=== PATIENT | male | born 1945 | race Caucasian/White ===

== ENCOUNTER 2021-10-08 12:41 | Emergency (ER) | payer MEDICARE, SELFPAY ==
[2021-10-08] VITALS (11 sets, daily range): BP systolic 64–137; BP diastolic 22–81; PULSE 64–77; RESP 12–20; TEMP 35.9–36.4; O2SAT 93–100; BMI 35.7
--- NOTE | 2021-10-08 13:25 | CRLHL7_ITS ---
For Patients: As a result of the Century Cures Act, medical imaging exams and procedure reports are released immediately into your electronic medical record. You may view this report before your referring provider. If you have questions, please contact your health care provider. INDICATION: Vomiting blood. TECHNIQUE: CT of the abdomen and pelvis with 100 cc Isovue 370 IV contrast. Coronal and sagittal reconstructions. COMPARISON: None. FINDINGS: The liver is enlarged measuring 20 cm in length. No significant nodularity of the liver surface. The spleen is enlarged measuring 14 cm in length. Calcified hepatic and splenic granulomas. Cholecystectomy. No biliary dilation. The pancreas and adrenal glands are negative. Portal veins are patent. Moderate to severe atrophy of both kidneys. No hydronephrosis or ureteral dilation. No obstructing urinary calculi identified. Decompressed urinary bladder. Mildly enlarged prostate gland. The distal esophagus and stomach are normal in appearance. No bowel dilation. Mild to moderate amount of stool throughout the colon. Colonic diverticulosis without evidence of diverticulitis. Negative appendix. Moderate amount of free fluid in the abdomen and pelvis. No intraperitoneal free air. Aortoiliac vascular calcifications. Mildly prominent right common and external iliac chain lymph nodes may be reactive. Tiny left pleural effusion with associated pleural thickening. Calcified pleural plaques. Calcified granuloma left lower lobe. Cardiomegaly. Sternotomy with aortic valve replacement. Coronary artery and mitral annulus calcifications. Calcified left hilar lymph nodes compatible with prior granulomatous disease. Bilateral gynecomastia. Degenerative changes of the spine. Body wall edema. IMPRESSION: 1. No findings to explain hematemesis. 2. Mild hepatosplenomegaly. The liver does not definitely appear cirrhotic. 3. Moderate to severe bilateral renal cortical atrophy. 4. Cardiomegaly with chronic appearing tiny left pleural effusion and body wall edema. 5. Moderate amount of ascites. Please note that all CT scans at this facility use dose modulation, iterative reconstruction, and/or weight-based dosing when appropriate to reduce radiation dose to as low as reasonably achievable. Dictated by Evelyn Johnston MD @ 10/08/2021 3:55:27 PM (Electronically Signed)
[2021-10-08] MEDS: 0.9 % SODIUM CHLORIDE 250 ml 250 ML IV ×2 (13:35→14:18)
[2021-10-08 13:40] LABS: Basophils Absolute Auto 0.02 K/uL (0.00-0.30); Basophils Percent Auto 0.3 % (0.0-3.0); Eosinophils Absolute Auto 0.05 K/uL (0.00-0.50); Eosinophils Percent Auto 0.7 % (0.0-7.0); Hematocrit 24.3 % (37.0-53.0); Immature Granulocytes Abs Auto 0.02 K/uL (0.00-0.30); Lymphocytes Percent Auto 6.8 % (20-44); Mean Corpuscular HGB Conc 31 gm/dL (32-36); Mean Corpuscular Hemoglobin 34 pg (26-34); Mean Corpuscular Volume 110 fL (80-100); Monocytes Percent Auto 12.3 % (0.0-11.0); Neutrophils Percent Auto 79.6 % (42.0-72.0); Platelet Count* 172 K/uL (140-440); RDW Coefficient of Variation % 17.3 % (11.5-15.5); Red Blood Count 2.22 m/uL (4.30-5.90); White Blood Count* 6.81 K/uL (4.50-11.00)
[2021-10-08 13:43] LABS: Hemoglobin* 7.6 gm/dL (13.5-17.5)
[2021-10-08 13:53] LABS: Chloride* 97 mmol/L (96-114)
[2021-10-08 13:54] LABS: Albumin* 3.6 g/dL (3.3-5.0); Potassium* 3.9 mmol/L (3.6-5.1); Sodium* 136 mmol/L (135-149)
[2021-10-08 13:56] LABS: Creatinine* 2.6 mg/dL (0.5-1.5); Est. Creatinine Clearance* 24.55; Estimated Glomerular Filt Rate 25 ml/min
[2021-10-08 13:57] LABS: Alanine Aminotransferase* 16 U/L (4-50); Alkaline Phosphatase* 156 U/L (40-150); Aspartate Amino Transferase* 26 U/L (12-35); Bilirubin Total* 0.6 mg/dL (0.1-1.5); Blood Urea Nitrogen* 36 mg/dL (7-30); Calcium* 8.9 mg/dL (8.4-10.6); Carbon Dioxide* 30 mmol/L (20-32); Glucose* 129 mg/dL (60-115); INR 1.27 (0.91-1.10); Prothrombin Time 16.3 Seconds; Total Protein* 7.1 g/dL (6.0-8.3)
[2021-10-08] MEDS: PANTOPRAZOLE SODIUM 40 MG INJ 80 MG IVP (13:58)
[2021-10-08 14:00] LABS: C Reactive Protein* 2.1 mg/dL (0.5-1.0)
--- NOTE | 2021-10-08 14:15 | ED.GIBLEED ---
HPI - GI Bleed General Time Seen by Provider: 13:00 Date Seen: 10/08/21 Chief complaint: Nausea/Vomiting Stated complaint: Vomiting blood Time Seen by Provider: 10/08/21 13:13 Source: patient and RN notes reviewed Mode of arrival: ambulatory Limitations: no limitations History of Present Illness HPI Narrative: Shaun is a 76-year-old male with a history of renal failure on dialysis, COPD, heart failure with porcine aortic valve and underlying atrial fibrillation who comes to the emergency room with complaints of vomiting blood. This morning patient notes that he had gotten up made himself breakfast but did not eat it. He had the sudden onset of his stomach not feeling quite right and had 1-1/2 cups of a guerrero colored solution,. He denies eating or drinking anything that would look like this. He decided to go to dialysis 1st this morning because he states he did not want to be transferred to another hospital if he came to [place]. He notes that they had to stop his dialysis early because of hypotension. He does agree that his stools which are normally light brown have been dark over the past few days. He is not lightheaded, denies chest pain or shortness of breath. He is not on any anticoagulation but takes a small baby aspirin daily. He has a remote history of GI bleed. He describes a hospitalization at [facility] at which time he had a endoscopy and colonoscopy and they found bleeding coming from his stomach. He states this was many years ago. He states that he does not exactly have pain in his abdomen but states that he is uncomfortable. Does not feel like his abdomen is bigger than usual. He has not had any diarrhea. He is full code. Onset (ago): hour(s) Related Data Allergies Allergy/AdvReac Type Severity Reaction Status Date / Time lisinopril AdvReac Unknown Verified 10/08/21 14:10 Review of Systems Status of ROS: Reports: 10 or more systems reviewed and unremarkable except as noted in History and below Const: Denies: fever, chills or change in weight Eyes: Denies: change in vision ENMT: Denies: throat pain Cardio: Denies: chest pain or shortness of breath with exertion Resp: Denies: shortness of breath GI: Reports: vomiting : Reports: other (Patient does not make urine); Denies: painful urination Musculo: Denies: back pain Neuro: Denies: headache PFSH PFSH Social History Smoking Status: Never smoker How often do you have a drink containing alcohol: never How often do you have six or more drinks on one occasion: Never AUDIT-C Alcohol total score: 0 Non-prescribed substance use: denies use Exam Const: Vital Signs, click to edit/add: Vital Signs - 24 hr 10/08/21 12:50 10/08/21 13:30 10/08/21 14:00 Temperature 97.6 F Pulse Rate Pulse Rate [Pulse Oximeter] 65 68 Respiratory Rate 16 Blood Pressure Blood Pressure [Ri ght Upper Arm] 81/40 L 79/22 L 64/31 L Pulse Oximetry 93 97 10/08/21 14:30 10/08/21 15:11 10/08/21 15:15 Temperature 96.8 F L 96.8 F L Pulse Rate 64 Pulse Rate [Pulse Oximeter] 75 64 Respiratory Rate 12 12 Blood Pressure 73/39 L Blood Pressure [Ri ght Upper Arm] 93/60 101/59 L Pulse Oximetry 96 96 96 10/08/21 15:27 10/08/21 16:00 10/08/21 16:30 Temperature 96.8 F L Pulse Rate 69 Pulse Rate [Pulse Oximeter] 73 71 Respiratory Rate 14 Blood Pressure 121/66 Blood Pressure [Ri ght Upper Arm] 137/81 121/66 Pulse Oximetry 97 10/08/21 17:00 10/08/21 17:30 Temperature 96.8 F L Pulse Rate Pulse Rate [Pulse Oximeter] 64 77 Respiratory Rate 20 20 Blood Pressure Blood Pressure [Ri ght Upper Arm] 117/61 117/75 Pulse Oximetry 97 100 Documenting provider has reviewed patient's vital signs: yes Common normals: no apparent distress and oriented x3 General appearance: cooperative HENMT: Common normals: normocephalic Head and scalp: normocephalic Mouth: oral and palatal mucosa normal Eye: Common normals: PERRL General eye: normal appearance of both eyes Pupil: PERRL Resp: Common normals: normal respiratory effort and clear to auscultation bilaterally Effort & inspection: able to speak in complete sentences Auscultation: clear to auscultation bilaterally Cardio: Common normals: regular rate and regular rhythm Rate: regular rate Rhythm: regular rhythm GI: Common normals: non-tender Inspection: abdominal distension and central obesity Auscultation: hypoactive bowel sounds Palpation: firm : Common normals: no CVA tenderness Bladder/kidney exam: no CVA tenderness Back & Pelvis: Common normals: no CVA tenderness Extremity: Other: Patient noted to have numerous superficial ulcers on his lower legs with some mild surrounding erythema. Neuro: Common normals: oriented x3 Psych: Common normals: mental status grossly normal, thought process normal and speech normal Attitude: calm Activity/motor behavior: appropriate eye contact Speech: normal speech Thought process: normal thought process Thought content: normal thought content Attention/concentration: attention grossly intact Memory/cognition: memory grossly intact Insight: fair Judgement: judgment good Skin: Narrative: Multiple scabs and superficial ulcers with some drainage noted on lower extremities. Some with dried blood. Ranging in size from 2 mm to 1 cm. Course Course Hospital Course: At this time patient is hypotensive with a systolic blood pressure of 78. He did undergo dialysis this morning but I am worried secondary to GI bleed he is given 250 mL of normal saline over 1 hour. After 1/2 hour I am told that his blood pressure has dropped to 60 after rearranging his blankets and his pillow. We give him an additional 250 mL and order 1 unit of blood at this point. Hemoglobin returns at 7.6. Patient is short of breath when he moves but he denies any chest pain. 1 L nasal cannula oxygen placed. He is mentating normally. We have called all of our usual tertiary care centers in attempts to transfer. We also called [place] and [place] and they have no availability. I did explain this to patient. A 2nd IV is currently being placed. Reevaluation(s) Reevaluation #1: At this time patient has blood infusing and blood pressure is now 117 systolic. Patient denies chest pain or shortness of breath. We are infusing blood as slow as possible as vital signs are much improved. Very cautious with her fluids at this point given patient's renal failure. Still unable to find appropriate placement at tertiary care centers. Reevaluation #2: We were able to secure acceptance from [facility]. They do not have a bed but they do have the ability to do a GI consult and thus patient will be housed in the ED for that. Patient's blood pressure much improved. No vomiting in the ED. Vital Signs Vital signs: Initial Vital Signs Temperature 97.6 F 10/08/21 12:50 Temperature Source Tympanic 10/08/21 12:50 Pulse Rate 65 10/08/21 12:50 Pulse Rhythm 10/08/21 12:50 Respiratory Rate 16 10/08/21 12:50 Blood Pressure 81/40 L 10/08/21 12:50 Blood Pressure Mean 53 10/08/21 12:50 Blood Pressure Position Sitting 10/08/21 12:50 Pulse Oximetry 93 10/08/21 12:50 Oxygen Delivery Method 10/08/21 12:50 Vital Signs Temperature 97.6 F 10/08/21 12:50 Pulse Rate 65 10/08/21 12:50 Respiratory Rate 16 10/08/21 12:50 Blood Pressure 81/40 L 10/08/21 12:50 Pulse Oximetry 93 10/08/21 12:50 Temperature 96.8 F L 10/08/21 17:30 Pulse Rate 77 10/08/21 17:30 Respiratory Rate 20 10/08/21 17:30 Blood Pressure 117/75 10/08/21 17:30 Pulse Oximetry 100 10/08/21 17:30 MDM - GI Bleed MDM Narrative Medical decision making narrative: 1. Bleed-patient initial hemoglobin 7.4. Patient believes his previous hemoglobin was 9.2 recently at dialysis. No recurrent vomiting in the ED. Protonix 80 mg IV. Patient has history of GI bleed ?from the stomach? per patient. I do not note history of varicosities. Patient had onset of hematemesis this morning with dark colored stools over the past few days. CT of the abdomen with contrast accomplished. Patient denies the ability to make any urine and is on dialysis. No clear reason for GI bleed noted on the CT. 2. Dialysis-patient does not make urine at this time. Creatinine of 2.6. Dialysis earlier today but had to be discontinued because of hypotension. 3. Hypotension-patient initially arrived with systolic blood pressure of 78. normal saline given cautiously at 250 mL over an hour. Patient really did not improve and thus of further 200 mL were given while awaiting blood. Patient now receiving 1 unit of blood and blood pressure much improved. 4. Disposition-patient will be transferred to the [facility] emergency room in [place] where they are able to do GI consult. He will not have a bed in the hospital as they are full but they will be able to do a GI consult. Patient will be ground ALS transfer. Medical Records Attestation: I reviewed the patient's medical records. Lab Data Attestation: I reviewed the patient's lab results. Labs: Lab Results 10/08/21 10/08/21 10/08/21 Range/Units 13:31 13:31 13:31 WBC 6.81 (4.50-11.00) K/uL RBC 2.22 L (4.30-5.90) m/uL Hgb 7.6 L* (13.5-17.5) gm/dL Hct 24.3 L (37.0-53.0) % MCV 110 H (80-100) fL MCH 34 (26-34) pg MCHC 31 L (32-36) gm/dL RDW Coeff of Sridevi 17.3 H (11.5-15.5) % Plt Count 172 (140-440) K/uL Neut % (Auto) 79.6 H (42.0-72.0) % Lymph % (Auto) 6.8 L (20-44) % [place] % (Auto) 12.3 H (0.0-11.0) % Eos % (Auto) 0.7 (0.0-7.0) % Baso % (Auto) 0.3 (0.0-3.0) % Neut # (Auto) 5.40 (1.7-7.0) K/uL Lymph # (Auto) 0.50 L (0.90-2.90) K/uL [place] # (Auto) 0.80 (0.00-0.90) K/UL Eos # (Auto) 0.05 (0.00-0.50) K/uL Baso # (Auto) 0.02 (0.00-0.30) K/uL Abs Immat Gran (auto) 0.02 (0.00-0.30) K/uL INR 1.27 H (0.91-1.10) Sodium 136 (135-149) mmol/L Potassium 3.9 (3.6-5.1) mmol/L Chloride 97 (96-114) mmol/L Carbon Dioxide 30 (20-32) mmol/L BUN 36 H (7-30) mg/dL Creatinine 2.6 H (0.5-1.5) mg/dL Estimated Creat Clear 24.55 Estimated GFR 25 ml/min Glucose 129 H (60-115) mg/dL Calcium 8.9 (8.4-10.6) mg/dL Total Bilirubin 0.6 (0.1-1.5) mg/dL AST 26 (12-35) U/L ALT 16 (4-50) U/L Alkaline Phosphatase 156 H (40-150) U/L C-Reactive Protein 2.1 H (0.5-1.0) mg/dL Total Protein 7.1 (6.0-8.3) g/dL Albumin 3.6 (3.3-5.0) g/dL Blood Type Antibody Screen Crossmatch (AHG) 10/08/21 Range/Units 13:31 WBC (4.50-11.00) K/uL RBC (4.30-5.90) m/uL Hgb (13.5-17.5) gm/dL Hct (37.0-53.0) % MCV (80-100) fL MCH (26-34) pg MCHC (32-36) gm/dL RDW Coeff of Sridevi (11.5-15.5) % Plt Count (140-440) K/uL Neut % (Auto) (42.0-72.0) % Lymph % (Auto) (20-44) % Independence % (Auto) (0.0-11.0) % Eos % (Auto) (0.0-7.0) % Baso % (Auto) (0.0-3.0) % Neut # (Auto) (1.7-7.0) K/uL Lymph # (Auto) (0.90-2.90) K/uL [place] # (Auto) (0.00-0.90) K/UL Eos # (Auto) (0.00-0.50) K/uL Baso # (Auto) (0.00-0.30) K/uL Abs Immat Gran (auto) (0.00-0.30) K/uL INR (0.91-1.10) Sodium (135-149) mmol/L Potassium (3.6-5.1) mmol/L Chloride (96-114) mmol/L Carbon Dioxide (20-32) mmol/L BUN (7-30) mg/dL Creatinine (0.5-1.5) mg/dL Estimated Creat Clear Estimated GFR ml/min Glucose (60-115) mg/dL Calcium (8.4-10.6) mg/dL Total Bilirubin (0.1-1.5) mg/dL AST (12-35) U/L ALT (4-50) U/L Alkaline Phosphatase (40-150) U/L C-Reactive Protein (0.5-1.0) mg/dL Total Protein (6.0-8.3) g/dL Albumin (3.3-5.0) g/dL Blood Type O Negative Antibody Screen NEGATIVE Crossmatch (AHG) See Detail Imaging Data CT scan - abdomen: Attestation: I have reviewed the pertinent imaging results. My impression: Ascites noted. Radiologist's impression: No findings to explain hematemesis. Cardiomegaly with chronic appearing tiny left pleural effusion. Moderate amount of ascites. ECG Data Interpretation: school lunch monitor has been showing sinus rhythm. Critical Care Time Critical Care Time Critical Care Time: Yes Attestation: The patient required my highest level preparedness to intervene emergently and I personally spent this critical care time directly and personally managing the patient. This critical care time included: Obtaining a history; Examining the patient; Pulse oximetry; Ordering and reviewing of studies; Arranging urgent treatment with development of a management plan; Evaluation of patients response to treatment; Frequent reassessment discussions with other providers. This critical care time was performed to assess and manage the high probability of imminent life-threatening deterioration that could result in multiorgan failure. It was exclusive of separate billable procedures and treating other patients and teaching time. Total Critical Care Time in Minutes: 90 Discharge Plan Discharge Clinical Impression: History of chronic CHF, COPD (chronic obstructive pulmonary disease), Acute GI bleeding, Dialysis patient Patient Disposition: [facility] Discharge Location: [facility] Condition: Improved
[2021-10-08 15:36] LABS: Slide Review Reflex No
--- NOTE | 2021-10-08 16:25 | ED.NURSE ---
EMS called for transport. Will return call with ETA
== END 2021-10-08 17:51 | disposition short-term general hospital (02) ==
PROVIDERS: Emergency Provider Family Medicine; PCP Family Medicine
DX: K92.2 Gastrointestinal hemorrhage, unspecified (principal); I95.9 Hypotension, unspecified
CPT/HCPCS: 36415; 36430; 74177; 80053; 85025; 85610; 86140; 86850; 86900; 86901; 86922; 96374; 99285; 99291; 99292; C9113; J7050; P9016; Q9967

== ENCOUNTER 2021-10-08 17:42 | Outpatient (CLI) | payer MEDICARE, SELFPAY | END 2021-10-08 17:43 | disposition home or self-care (01) | PROVIDERS: PCP Family Medicine; Visit Provider Family Medicine | DX: K92.2 Gastrointestinal hemorrhage, unspecified (principal); R11.0 Nausea; R53.1 Weakness | CPT/HCPCS: A0425; A0426 ==

== ENCOUNTER 2021-10-26 08:25 | Outpatient (CLI) | payer MEDICARE, SELFPAY ==
--- OUTSIDE RECORDS SUMMARY | 2021-10-27 05:40 | XMS_ITS | Encounter Summary ---
:1945 Author Organization [facility] Address [address] [place] [id number] Care Team Providers Name Role Phone Liban Leos Primary Care Provider Ernie Pompa MD Unavailable Reason for Visit Auth/Cert Specialty Diagnoses / Procedures Referred By Contact Refer red To Contact Med Surg Diagnoses UGI bleed UGI bleed Rh 5 Medical Surgical [address] [place], [place] [address] Phone: Fax: Referral ID Status Reason Start Date Expiration Date Visits Requ ested Visits Authorized [id number] 1 1 Encounter Details Date Type Department Care Team Description 10/10/2021 Anesthesia Event [facility] Olvin Mosley belton PeriOp Services MD [place] [address] [place], [place] ANESTHESIA [id number] [address] [facility] [address] [place], [place] [address] Anesthesia Record Procedure Summary Procedure Name Responsible Anesthesia Start Anesthesia Stop Anesthesiologist Time Time ESOPHAGOGASTRODUODENOSCOPY Herman Mosley 10/10/21 0842 09/18 07/09 0918 biopsies (N/A Mouth) MD [place] Events Date Time Event Comment 10/10/2021 0830 SPECIALIZED DEVELOPER Ready for Procedure 0842 An Start 0842 Present 0845 AN REASSESS I attest that I have identified and re-evaluated the patient immediately before the induction of anesthesia and I am satisfied that t he anesthetic plan is suitable for the patient's condition and procedure. The f irst vital signs recorded are pre- inducti on. Yamilka Bear APRN SPECIALIZED DEVELOPER 0845 An Start Data 0857 Present 0912 an stop data 0918 An Stop Electronically s igned by Yamilka Bear APRN CRNA on Sep 9:18 AM 0918 Present Name Total midazolam 1mg/mL 2 mg lidocaine 1% 20 mg propofol (DIPRIVAN) injection 10 mg/mL vial 112.3 mg ondansetron 2mg/mL 4 mg ePHEDrine 50mg/mL 5 mg phenylephrine 10mg/mL 1,000 mcg 0.9% NS 200 mL Agents Name NO HELIOX O2 N2O Air Exp Sevoflurane Exp Isoflurane Exp Desflurane Exp N2O Ins Sevoflurane Ins Isoflurane Ins Desflurane O2 Auxiliary Blood No blood administrations on file. Lines, Drains, and Airways Type Details Placement Removal Hemodialysis Vascular 10/09/21 ([place] 10/09/21 1543 by Access exact date); 1543 Kaylee Trejo S, (unknown exact time); RN Left; Forearm Incision/Surgical Site 10/10/21; 0906; 10/10/21 0906 by Mouth; scope Essence Walton, RN insertion only Peripheral IV 10/08/21; 18 G; 10/08/21 0000 by 10/11/21 2102 b y Anterior, Right Kayla Thompson, [facility] Inpatient, Nurse Peripheral IV 10/08/21; Right; 10/08/21 0000 by 10/11/21 2102 by Wrist Kayla Thompson, [facility] Inpatient, Nurse Peripheral IV 10/09/21; 0851; 20 G; 10/09/21 0851 by 10/11/21 2102 by BD; Anterior, Right; Essence Osuna, [facility] Inpati t, Nurse Lower forearm; Tolerated well documented in this encounter Social History Tobacco Use Types Packs/Day Years Used Date Never Smoker Dip, chew, snus or snuff Smokeless Tobacco: Former User Chew Q uit: 2000 Sex Assigned at Date Recorded Not on file COVID-19 Exposure Response Date Recorded In the last 10 days, have you been in contact with No / Unsu re 10/08/2021 6:28 PM CDT someone who was confirmed or suspected to have Coronavirus/COVID-19? documented as of this encounter OR Notes Anesthesia Postprocedure Evaluation - Herman Mosley MD - 10/10/2021 10:22 AM CDT Patient: Shaun Ocampo Procedure: Procedure(s): ESOPHAGOGASTRODUODENOSCOPY (EGD), biopsies Anesthesia Type: MAC Note: Postop Pain Control: Uneventful Sign Out: Well controlled pain PONV: No Neuro/Psych: Uneventful Sign Out: Acceptable/Baseline neuro status Airway/Respiratory: Uneventful Sign Out: Acceptable/Baseline resp. status CV/Hemodynamics: Uneventful Sign Out: Acceptable CV status Other NRE: NONE DID A NON-ROUTINE EVENT OCCUR? No Last vitals: Vitals Value Taken Time BP 101/57 10/10/21 0936 Temp 97 ??F (36.1 ??C) 10/10/21 0936 Pulse 74 10/10/21 0944 Resp 31 10/10/21 0944 SpO2 100 % 10/10/21 0944 Vitals shown include unvalidated device data. Electronically Signed By: Herman Mosley MD October 10, 2021 10:22 AM Anesthesia Preprocedure Evaluation - Herman Mosley MD - 10/10/2021 8:21 AM CDT Anesthesia Pre-Procedure Evaluation Patient: Shaun Ocampo : 1945 Procedure : Procedure(s): ESOPHAGOGASTRODUODENOSCOPY (EGD) Past Medical History: Diagnosis Date ??? COPD (chronic obstructive pulmonary disease) (H) ??? Diabetes (H) History reviewed. No pertinent surgical history. Allergies Allergen Reactions ??? Blood-Group Specific Substance Other (See Comments) Patient has a Suggestive Warm Auto antibody. Blood products may be delayed. Draw patient 24 hours prior to transfusion. Draw one red top and two purple top tubes for all type and screen orders. ??? Lisinopril Cough Social History Tobacco Use ??? Smoking status: Never Smoker ??? Smokeless tobacco: Former User Types: Chew Quit date: 2000 Substance Use Topics ??? Alcohol use: Not on file Wt Readings from Last 1 Encounters: 10/10/21 112.3 kg (247 lb 8 oz) Anesthesia Evaluation Pt has had prior anesthetic. Type: General. No history of anesthetic complications ROS/MED HX ENT/Pulmonary: (+) COPD, Neurologic: - neg neurologic ROS Cardiovascular: (+) hypertension--CAD ---valvular problems/murmurs type: MR s/p clips. METS/Exercise Tolerance: Hematologic: - neg hematologic ROS Musculoskeletal: - neg musculoskeletal ROS GI/Hepatic: - neg GI/hepatic ROS Renal/Genitourinary: (+) renal disease, type: CRI, Pt requires dialysis, type: Peritoneal dialysis, Endo: (+) type II DM, Obesity, Psychiatric/Substance Use: - neg psychiatric ROS Infectious Disease: - neg infectious disease ROS Malignancy: - neg malignancy ROS Other: - neg other ROS Physical Exam Airway TM distance: > 3 FB Neck ROM: full Mouth opening: > 3 cm Respiratory Devices and Support Dental Cardiovascular cardiovascular exam normal Pulmonary pulmonary exam normal OUTSIDE LABS: CBC: Lab Results Component Value Date WBC 7.2 10/10/2021 WBC 7.2 10/09/2021 HGB 9.7 (L) 10/10/2021 HGB 9.2 (L) 10/10/2021 HCT 31.5 (L) 10/10/2021 HCT 28.4 (L) 10/09/2021 PLT 173 10/10/2021 PLT 157 10/09/2021 BMP: Lab Results Component Value Date NA 132 (L) 10/10/2021 NA 134 10/09/2021 POTASSIUM 5.1 10/10/2021 POTASSIUM 4.8 10/09/2021 CHLORIDE 100 10/10/2021 CHLORIDE 100 10/09/2021 CO2 25 10/10/2021 CO2 28 10/09/2021 BUN 49 (H) 10/10/2021 BUN 42 (H) 10/09/2021 CR 4.60 (H) 10/10/2021 CR 3.52 (H) 10/09/2021 GLC 117 (H) 10/10/2021 GLC 98 10/09/2021 COAGS: Lab Results Component Value Date INR 1.34 (H) 10/08/2021 POC: No results found for: BGM, HCG, HCGS HEPATIC: Lab Results Component Value Date ALBUMIN 2.9 (L) 10/08/2021 PROTTOTAL 6.9 10/08/2021 ALT 16 10/08/2021 AST 15 10/08/2021 ALKPHOS 116 10/08/2021 BILITOTAL 0.8 10/08/2021 OTHER: Lab Results Component Value Date GAMA 8.9 10/10/2021 Anesthesia Plan ASA Status: 4 NPO Status: NPO Appropriate Anesthesia Type: MAC. Consents Postoperative Care Comments: Herman Mosley MD documented in this encounter Miscellaneous Notes Anesthesia Care Transfer Note - Yamilka Bear APRN CRNA - 10/10/2021 9:18 AM CDT Patient: Shaun Ocampo Procedure: Procedure(s): ESOPHAGOGASTRODUODENOSCOPY (EGD), biopsies Diagnosis: Hematemesis [K92.0] Diagnosis Additional Information: No value filed. Anesthesia Type: MAC Note: Oropharynx: oropharynx clear of all foreign objects and spontaneously breathing Level of Consciousness: drowsy Oxygen Supplementation: face mask Independent Airway: airway patency satisfactory and stable Dentition: dentition unchanged Vital Signs Stable: post-procedure vital signs reviewed and stable Report to RN Given: handoff report given Patient transferred to: PACU Handoff Report: Identifed the Patient, Identified the Reponsible Provider, Reviewed the pertinent medical history, Discussed the surgical course, Reviewed Intra-OP anesthesia mangement and issues during anesthesia, Set expectations for post-procedure period and Allowed opportunity for questions and acknowledgement of understanding Vitals: Vitals Value Taken Time BP 88/47 10/10/21 0915 Temp Pulse 76 10/10/21 0917 Resp 18 10/10/21 0917 SpO2 100 % 10/10/21 0917 Vitals shown include unvalidated device data. Electronically Signed By: Yamilka Bear APRN CRNA October 10, 2021 9:18 AM documented in this encounter Plan of Treatment Not on filedocumented as of this encounter Visit Diagnoses Not on filedocumented in this encounter Administered Medications Inactive Administered Medications - up to 3 most recent administrations Medication Order MAR Action Action Date Dose Rate Site ePHEDrine injection Given 10/10/2021 8:52 AM CDT 5 mg Intravenous, PRN, Starting on 10/10/21 at 0852, Anesthesia Intra-op lidocaine 1 % injection Given 10/10/2021 8:47 AM CDT 20 mg Intravenous, PRN, Starting on 10/10/21 at 0847, Anesthesia Intra-op midazolam (VERSED) injection Given 10/10/2021 8:58 AM CDT 1 mg Intravenous, Administer over 2 Minutes, PRN, Starting on Mon10/10/21 at 0843, Anesthesia Intra-op Given 10/10/2021 8:43 AM CDT 1 mg ondansetron (ZOFRAN) injection Given 10/10/2021 8:55 AM CDT 4 mg Intravenous, PRN, Administer over 2-5 Minutes, Starting on Mon10/10/21 at 0855, Anesthesia Intra-op phenylephrine (PAGE-SYNEPHRINE) injection Given 10/10/2021 9:18 AM CDT 200 mcg Intravenous, PRN, Starting on Mon10/10/21 at 0855, Anesthesia Intra-op Given 10/10/2021 9:09 AM CDT 200 mcg Given 10/10/2021 9:06 AM CDT 200 mcg propofol (DIPRIVAN) New Bag 10/10/2021 8:49 AM 100 mcg/kg/min 67.3 8 mL/hr injection 10 mg/mL vial CDT Intravenous, CONTINUOUS PRN, Starting on Mon10/10/21 at 0849, Anesthesia Intra-op sodium chloride 0.9% infusion New Bag 10/10/2021 8:42 AM CDT Intravenous, CONTINUOUS PRN, Anesthesia Intra-op, Starting on Mon10/10/21 at 0842, Until Mon10/10/21 at 0918 documented in this encounter Care Teams Projection Technician Relationship Specialty Start Date End Date Liban Leos PCP - General Family Medicine 10/08/21 [address] [place] [address] Ernie Pompa MD MD Nephrology 10/08/21 [address] [place] [address] documented as of this encounter
--- OUTSIDE RECORDS SUMMARY | 2021-10-27 05:40 | XMS_ITS | Encounter Summary ---
:1945 Author Organization [facility] Address [address] [place] [id number] Care Team Providers Name Role Phone Liban Leos Primary Care Provider Ernie Pompa MD Unavailable Reason for Visit Reason Comments Hypotension Auth/Cert Specialty Diagnoses / Procedures Referred By Contact Refer red To Contact Med Surg Diagnoses UGI bleed UGI bleed 5 Medical Surgical [address] [place], [place] [address] Phone: Fax: Referral ID Status Reason Start Date Expiration Date Visits Requ ested Visits Authorized [id number] 1 1 Encounter Details Date Type Department Care Team Description 10/08/2021 - Hospital Encounter [facility] Florentino Ragsdale MD [facility] [address] [place] [address] UGI bleed 10/11/2021 [place] [address] Medical Fadi Viveros, DO [address] [place] [address] Surgical Dallin Simons MD [facility] [address] [place] [address] [address] Burt MD [facility] [address] [place], [place] [id number] [place] [address] Social History Tobacco Use Types Packs/Day Years [...] have Coronavirus/COVID-19? documented as of this encounter Last Filed Vital Signs Vital Sign Reading Time Taken Comments Blood Pressure 104/75 10/11/2021 5:51 PM CDT Pulse 65 10/11/2021 5:51 PM CDT Temperature 36.7 ??C (98 ??F) 10/11/2021 5:51 PM CDT Respiratory Rate 16 10/11/2021 5:51 PM CDT Oxygen Saturation 98% 10/11/2021 5:51 PM CDT Inhaled Oxygen Concentration - - Weight 113.2 kg (249 lb 9.6 oz) 10/11/2021 5:57 AM CDT Height 175.3 cm (5' 9) 10/09/2021 2:08 PM CDT Body Mass Index 36.86 10/09/2021 2:08 PM CDT documented in this encounter Discharge Summaries Dallin Farah DO - 10/11/2021 10:42 AM CDT Hospitalist Discharge Summary [facility] Jonatan Mejia Date of : 1945 Age: [age] year old Date of Admission: 10/08/2021 Date of Discharge: 10/11/2021 Admitting Physician: Fadi Viveros DO Discharge Physician: Dallin Farah DO Discharging Service: Hospitalist Primary Provider: Liban Leos Discharge Diagnosis: Acute upper GI bleeding Acute blood loss anemia ESRD on HD MWF Paroxysmal Afib CAD s/p stent x2 History of severe MR s/p clips Bioprosthetic AVR COPD Gout Discharge Disposition: Discharged to home Allergies: Allergies Allergen Reactions ??? Blood-Group Specific Substance Other (See Comments) Patient has a Suggestive Warm Auto antibody. Blood products may be delayed. Draw patient 24 hours prior to transfusion. Draw one red top and two purple top tubes for all type and screen orders. ??? Lisinopril Cough Discharge Medications: Current Discharge Medication List START taking these medications Details pantoprazole (PROTONIX) 40 MG EC tablet Take 1 tablet (40 mg) by mouth every morning (before breakfast) Qty: 30 tablet, Refills: 1 Associated Diagnoses: UGI bleed CONTINUE these medications which have NOT CHANGED Details allopurinol (ZYLOPRIM) 100 MG tablet Take 100 mg by mouth daily atorvastatin (LIPITOR) 20 MG tablet Take 20 mg by mouth daily fluticasone (FLONASE) 50 MCG/ACT nasal spray Windsor 1 spray in nostril daily fluticasone-salmeterol (ADVAIR HFA) 115-21 MCG/ACT inhaler Inhale 2 puffs into the lungs 2 times daily lidocaine-prilocaine (EMLA) 2.5-2.5 % external cream APPLY SMALL AMOUNT TO ACCESS SITE (AVF) 1 TO 2 HOURS BEFORE DIALYSIS. COVER WITH OCCLUSIVE DRESSING (SARAN WRAP) metoprolol succinate ER (TOPROL XL) 25 MG 24 hr tablet Take 0.5 tablets by mouth daily multivitamin RENAL (MULTIVITAMIN RENAL) 1 MG capsule Take 1 capsule by mouth sevelamer carbonate (RENVELA) 800 MG tablet Take 1 tablet by mouth 3 times daily (with meals) STOP taking these medications aspirin (ASA) 81 MG EC tablet Comments: Reason for Stopping: Condition on Discharge: Discharge condition: Stable Discharge vitals: Blood pressure (!) 102/34, pulse 61, temperature 97.4 ??F (36.3 ??C), temperature source Oral, resp. rate 20, height 1.753 m (5' 9), weight 113.2 kg (249 lb 9.6 oz), SpO2 96 %. Code status on discharge: Full Code BASIC PHYSICAL EXAMINATION: GENERAL: No apparent distress. CARDIOVASCULAR: Regular rate and rhythm without murmurs. PULMONARY: Clear to auscultation bilaterally. GASTROINTESTINAL: Abdomen soft, non-tender. EXTREMITIES: No edema, pulses intact. NEUROLOGIC: No focal deficits. History of Illness: See detailed admission note for full details. Procedures excluding imaging which is summarized below: Please see details in the electronic medical record. Consultations: GASTROENTEROLOGY IP CONSULT NEPHROLOGY IP CONSULT Significant Results: No results found for this or any previous visit. Transthoracic Echocardiogram Results: No results found for this or any previous visit (from the past 4320 hour(s)). Pending Results: Unresulted Labs Ordered in the Past 30 Days of this Admission Date and Time Order Name Status Description 10/11/2021 7:31 AM Hepatitis B surface antigen In process 10/10/2021 9:02 AM Surgical Pathology Exam In process Discharge Instructions and Follow-Up: Discharge instructions and follow-up: Discharge Procedure Orders Reason for your hospital stay Order Comments: GI bleeding Follow-up and recommended labs and tests Order Comments: Follow up with primary care provider, LIBAN LEOS, within 7 days to evaluate medication change, for hospital follow- up, and regarding new diagnosis. No follow up labs or test areneeded. Need to determine if/when ASA should be resumed. Avoid NSAIDs and alcohol. Follow-up with cardiology to discuss the Watchman device. Activity Order Comments: Your activity upon discharge: activity as tolerated Order Specific Question Answer Comments Is discharge order? Yes Full Code Order Specific Question Answer Comments Code status determined by: Discussion with patient/ legal decision maker Diet Order Comments: Follow this diet upon discharge: Orders Placed This Encounter Renal Diet (dialysis) Order Specific Question Answer Comments Is discharge order? Yes Hospital Course: Jonatan Mejia is a 73 year old. male with a past medical history pertinent for??ESRD on HD MWF,??paroxysmal Afib??on ASA 81m g daily, aortic stenosis??s/p??bioprosthetic??aortic valve replacement, hypertension, diabetes mellitus type II, secondary hyperparathyroidism, esophageal reflux/barretts esop hogus,??prior GIB due to gastric ulcer and??morbid obesity??who??presents to the ED from [place] [facility] due to concerns of hematemesis and melanotic stool. He had just finished HD (took 1.2L) and presented to [place] ED due to concerns of dizziness and hematemesis. ?? Work up at [place] ED showed hgb of 7.5 and soft pressures in the 100's. CT abd pelvis showed normal distal esophagus, stomach and normal liver. No symptoms of obstruction or mass. There were moderate ascites in the dependent abdomen. He received NS bolus (500cc) and 1 unit(s) PRBC and transferred to [facility] ED. Work up in our ED reveals hemoglobin of 8.1 (baseline 9's) and blood pressure in the 70's-100's. He received 1L of NS. GI was made aware, no indication for emergent EGD. But he was placed on Protonix drip, octreotide drip and rocephin (due to concern for possible liver disease causing ascites seen on CT).?? His hemoglobin did decrease and he required 3 units of packed red blood cells for transfusion. Hemoglobin eventually stabilized and he had no concerning stools during his hospitalization. EGD was completed yesterday and showed moderately erythematous mucosa with stigmata of recent bleeding found in the gastric body in the gastric antrum. He was transitioned to oral Protonix which she will remain on indefinitely as well as Carafate which has been started. He should avoid NSAIDs and remain off his aspirin at least in the short-term. He can discuss with his PCP if and when this should be resumed. 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 He does also have a history of coronary disease and prior stenting so antiplatelet medications do have a good indication in his medication regimen. Nephrology was consulted due to his end-stage renal disease on maintenance hemodialysis. He last dialyzed as an outpatient on Monday and had 1.2 L of fluid removed. He was at his baseline weight and labs and volume status remained appropriate during the hospitalization. He will dialyze today (Monday) to remain on schedule and can continue on his outpatient dialysis schedule. ?? The patient was seen, examined, and counseled on this day. The hospitalization and plan of care was reviewed with the patient and daughter in law Brianna wallace. All questions were addressed and the patient agreed to follow-up as noted above. Total time spent in face to face contact with the patient and coordinating discharge was: 35 Minutes Dallin Farah DO MPH [facility] Hospitalist Clark Lentz [facility] [place] [address] 10/11/2021 documented in this encounter Medications at Time of Discharge Medication Sig Dispensed Refills Start Date End Date allopurinol (ZYLOPRIM) Take 100 mg by mouth 0 100 MG tablet daily atorvastatin (LIPITOR) Take 20 mg by mouth 0 11/19 20 MG tablet daily fluticasone (FLONASE) 50 [place] 1 spray in 0 12/15 MCG/ACT nasal spray nostril daily fluticasone-salmeterol Inhale 2 puffs into 0 06/18 (ADVAIR HFA) 115-21 the lungs 2 times MCG/ACT inhaler daily lidocaine-prilocaine APPLY SMALL AMOUNT TO 0 07/19 (EMLA) 2.5-2.5 % ACCESS SITE (AVF) 1 external cream TO 2 HOURS BEFORE DIALYSIS. COVER WITH OCCLUSIVE DRESSING (SARAN WRAP) metoprolol succinate ER Take 0.5 tablets by 0 (TOPROL XL) 25 MG 24 hr mouth daily tablet multivitamin RENAL Take 1 capsule by 0 12/15/2020 (MULTIVITAMIN RENAL) 1 mouth MG capsule pantoprazole (PROTONIX) Take 1 tablet (40 mg) 30 tablet 1 0 10/12/2021 40 MG EC by mouth every tabletIndications: UGI morning (before bleed breakfast) sevelamer carbonate Take 1 tablet by 0 09/10/2021 (RENVELA) 800 MG tablet mouth 3 times daily (with meals) sucralfate (CARAFATE) 1 Take 1 tablet (1 g) 90 tablet 0 11/10/2021 GM tabletIndications: by mouth 3 times UGI bleed daily (with meals) for 30 days documented as of this encounter Progress Notes Aracelis Goldstein RN - 10/11/2021 7:17 PM CDT ??Pertinent assessments: A&Ox4. Up assist of one with walker and gait belt, denies pain, GREY, [id number] on RA. VSS, continues to be anuric. Bruit/thrill present . Major Shift Events:Hemodialysis completed. ??Treatment Plan: Protonix PO , bleeding precaution. ST Lolly Xavier RN - 10/11/2021 6:02 PM CDT Potassium Date Value Ref Range Status 10/11/2021 5.1 3.4 - 5.3 mmol/L Final Hemoglobin Date Value Ref Range Status 10/11/2021 9.4 (L) 13.3 - 17.7 g/dL Final Creatinine Date Value Ref Range Status 10/11/2021 5.77 (H) 0.66 - 1.25 mg/dL Final Urea Nitrogen Date Value Ref Range Status 10/11/2021 60 (H) 7 - 30 mg/dL Final Sodium Date Value Ref Range Status 10/11/2021 134 133 - 144 mmol/L Final INR Date Value Ref Range Status 10/08/2021 1.34 (H) 0.85 - 1.15 Final DIALYSIS PROCEDURE NOTE Hepatitis status of previous patient on machine log was checked and verified ok to use with this patients hepatitis status. Patient dialyzed for 3.5 hrs. on a K2 bath with a net fluid removal of 2L. A BFR of 400 ml/min was obtained via a LAF using 15 gauge needles. The treatment plan was discussed with Dr. Alcaraz during the treatment. Total heparin received during the treatment: 0 units. Needle cannulation sites held x 10 min. Meds given: EPO 4,000units IV Complications: NONE Person educated: pt. Knowledge base substantial. Barriers to learning: none. Educated on diet via verbal mode. patient verbalized understanding. Pt prefers verbal education style. ICEBOAT? Timeout performed pre-treatment I: Patient was identified using 2 identifiers C: Consent Signed Yes E: Equipment preventative maintenance is current and dialysis delivery system OK to use B: Hepatitis B Surface Antigen: neg; Draw Date: 09/22/2021 Hepatitis B Surface Antibody: Immune; Draw Date: 03/24/2021 O: Dialysis orders present and complete prior to treatment A: Vascular access verified and assessed prior to treatment T: Treatment was performed at a clinically appropriate time ?: Patient was allowed to ask questions and address concerns prior to treatment See Adult Hemodialysis flowsheet in EPIC for further details and post assessment. Machine water alarm in place and functioning. Transducer pods intact and checked every 15min. Pt returned via bed. Chlorine/Chloramine water system checked every 4 hours. Outpatient Dialysis at [facility] Post treatment report given to Delilah Goldstein RN regarding 2L of fluid removed, last BP of 104/72, and patient pain rating of 0/10. Please remove patient dressing on AVF and AVG needle sites 24 hours after dialysis. If leaking occurs please apply a Band-Aid. Frederick Alcaraz MD - 10/11/2021 2:02 PM CDT Renal Medicine Progress Note Assessment/Plan: # ESRD # Anemia # CKD-MBD # CAD, mitral clips and bioprosthetic AVR # COPD Plan: 3.5 hrs HD. UF ~ 2-3 liters as tolerate. No heparin. Plan discussed with rigging supervisor and patient at the bedside. Interval History: Afebrile. BP is soft Denies SOB No abdominal pain No vomiting Medications and Allergies: ??? acetaminophen 975 mg Oral Q8H ??? allopurinol 100 mg Oral Daily ??? atorvastatin 20 mg Oral Daily ??? fluticasone-vilanterol 1 puff Inhalation Daily ??? multivitamin RENAL 1 capsule Oral Daily ??? pantoprazole 40 mg Oral QAM AC ??? sevelamer carbonate 800 mg Oral TID w/meals ??? sodium chloride (PF) 3 mL Intracatheter Q8H ??? sucralfate 1 g Oral TID AC Allergies Allergen Reactions ??? Blood-Group Specific Substance Other (See Comments) Patient has a Suggestive Warm Auto antibody. Blood products may be delayed. Draw patient 24 hours prior to transfusion. Draw one red top and two purple top tubes for all type and screen orders. ??? Lisinopril Cough Physical Exam: Vitals were reviewed , Blood pressure (!) 102/34, pulse 61, temperature 97.4 ??F (36.3 ??C), temperature source Oral, resp. rate 20, height 1.753 m (5' 9), weight 113.2 kg (249 lb 9.6 oz), SpO2 96 %. Wt Readings from Last 3 Encounters: 10/11/21 113.2 kg (249 lb 9.6 oz) Intake/Output Summary (Last 24 hours) at 10/11/2021 1402 Last data filed at 10/11/2021 0837 Gross per 24 hour Intake 350 ml Output -- Net 350 ml GENERAL APPEARANCE: pleasant, NAD, alert HEENT: Eyes/ears/nose/neck grossly normal RESP: lungs cta b c good efforts, no crackles, rhonchi or wheezes CV: RRR, nl S1/S2, ABDOMEN: obese, soft, NT EXTREMITIES/SKIN: no rashes/lesions on observed skin; + edema NEURO: Awake and conversing normally Data: CBC RESULTS: Recent Labs Lab 10/11/21 0636 10/10/21 0722 10/10/21 0215 10/09/21 2202 10/09/21 1348 10/09/21 0912 10/08/21 2247 10/08/21 1902 WBC 7.1 7.2 -- -- -- 7.2 -- 7.1 RBC 2.85* 2.89* -- -- -- 2.57* -- 2.37* HGB 9.4* 9.7* 9.2* 10.3* 9.7* 8.5* < > 8.1* HCT 31.2* 31.5* -- -- -- 28.4* -- 26.1* PLT 165 173 -- -- -- 157 -- 161 < > = values in this interval not displayed. Basic Metabolic Panel: Recent Labs Lab 10/11/21 0636 10/10/21 0921 10/10/21 0722 10/09/21 0912 10/08/21 2100 10/08/21 1902 NA 134 -- 132* 134 -- 136 POTASSIUM 5.1 -- 5.1 4.8 -- 3.9 CHLORIDE 100 -- 100 100 -- 100 CO2 23 -- 25 28 -- 30 BUN 60* -- 49* 42* -- 36* CR 5.77* -- 4.60* 3.52* -- 2.80* GLC 116* 126* 117* 98 104* 115* GAMA 8.2* -- 8.9 8.7 -- 8.8 INR Recent Labs Lab 10/08/214 INR 1.34* Attestation: I have reviewed today's relevant vital signs, notes, medications, labs and imaging. Frederick Alcaraz MD [facility] - Nephrology Office phone :[phone] Pager: [phone] Jovita Blackmon RN - 10/11/2021 7:05 AM CDT End of Shift Summary For vital signs and complete assessments, please see documentation flowsheets. Pertinent assessments: Pt A&O, soft BP's, wore 3L NC during the night, currently on RA. Pt denies any pain. Major Shift Events: uneventful Treatment Plan: Hemodialysis today, pain management Aracelis Goldstein RN - 10/10/2021 9:16 PM CDT Pertinent assessments: A&Ox4. Up assist of one with walker and gait belt, denies pain, GREY, O2 maintained on 3L NC, BP soft fluid encouraged otherwise VSS, continues to be anuric. Bruit/thrill present . Major Shift Events:uneventful ??Treatment Plan: Protonix PO , bleeding precaution. Dallin Farah DO - 10/10/2021 12:36 PM CDT [facility] Hospitalist Progress Note Name: Jonatan Mejia Provider: Dallin Farah DO MPH Date of Service: 10/10/2021 Summary of Stay: Jonatan Mejia is a 73 year old. male with a past medical history pertinent for??ESRD on HD MWF, paroxysmal Afib on ASA 81m g daily, aortic stenosis??s/p bioprosthetic aortic valve replacement, hypertension, diabetes mellitus type II, secondary hyperparathyroidism, esophageal reflux/ barretts esophogus, prior GIB due to gastric ulcer and morbid obesity??who presents to the ED from [place] ED due to concerns of hematemesis and melanotic stool. He had just finished HD (took 1.2L) and presented to [place] ED due to concerns of dizziness and hematemesis. ?? Work up at [place] ED showed hgb of 7.5 and soft pressures in the 100's. CT abd pelvis showed normal distal esophagus, stomach and normal liver. No symptoms of obstruction or mass. There were moderate ascites in the dependent abdomen. He received NS bolus (500cc) and 1 unit(s) PRBC and transferred to [facility] ED. Work up in our ED reveals hemoglobin of 8.1 (baseline 9's) and blood pressure in the 70's-100's. He received 1L of NS. GI was made aware, no indication for emergent EGD. But was placed on Protonix drip, octreotide drip and rocephin (due to concern for possible liver disease causing ascites seen on CT). ?? Problem list: #Acute GIB, upper source given hematemesis and reported melanotic stool 2 episodes of rust like emesis yesterday but apparently has had dark black stools intermittently for the last month. Last EGD 03/2017 showed Brannon's esophagus with polyps in the gastric fundus but no obvious bleeding. Currently no further episodes of hematemesis or christiano GI bleed since arrival to the ED. EGD today shows moderately erythematous mucosa with stigmata of recent bleeding was found in the gastric body and in the gastric antrum. Biopsies taken. Plan: -Change Protonix to 40 mg PO daily. -Stop octreotide gtt. -Hemoglobin stable, recheck tomorrow morning. -ADAT. -Hold ASA until PCP follow-up. ?? #ESRD on HD MWF #Intra abd ascites Pt is anuric. Had HD Monday but apparently only had 1.2 L off. Currently at base wt of 108-109 kg. Suspect ascites is 3rd spacing for CLD, liver looks ok and he is not a drinker, no evidence of cirrhosis on CT scan, normal hepatic panel. -Consult Nephrology for HD arrangements. -Stop IVF as he does not make urine and is stable. ?? #pAfib -Sounds like he's in sinus. Rate controlled. -Declined Watchman in the past, only on ASA but given findings on EGD should reconsider Watchman. -Hold ASA. ?? #CAD s/p stent x2 #Hx of severe MR s/p mitral clips #Bioprosthetic AVR -Stable from cardiac standpoint. -No recent angina of GREY. -Aim to keep hemoglobin above 8. -Hold ASA. -Hold Metoprolol given soft BPs. ?? #COPD -No evidence of acute exacerbation. -Resumed advair and will have duonebs PRN. ?? #Gout -Resumed allopurinol. DVT Prophylaxis: Pneumatic Compression Devices Code Status: Full Code Diet: Renal Diet (dialysis) Bustamante Catheter: Not present Disposition: Expected discharge in 1 days to home. Goals prior to discharge include EGD. Incidental Findings: None. Family updated today: Spoke to daughter yesterday. Called her again today but no answer so confidential VM was left. Interval History The patient reports doing well. No chest pain or shortness of breath. No nausea, vomiting, diarrhea,constipation. No fevers. No other specific complaints identified. Spoke with GI about the EGD findings. -Data reviewed today: I personally reviewed all new labs and imaging results over the last 24 hours. Physical Exam Temp: 97.2 ??F (36.2 ??C) Temp src: Axillary BP: 108/45 Pulse: 87 Resp: 20 SpO2: 92 % O2 Device: None (Room air) Oxygen Delivery: 5 LPM Vitals: 10/09/21 1408 10/10/21 0628 Weight: 112.1 kg (247 lb 1.6 oz) 112.3 kg (247 lb 8 oz) Vital Signs with Ranges Temp: [97 ??F (36.1 ??C)-97.8 ??F (36.6 ??C)] 97.2 ??F (36.2 ??C) Pulse: [56-87] 87 Resp: [16-23] 20 BP: (79-115)/(36-87) 108/45 SpO2: [80 %-100 %] 92 % I/O last 3 completed shifts: In: 300 Out: - GENERAL: No apparent distress. Awake, alert, and fully oriented. HEENT: Normocephalic, atraumatic. Extraocular movements intact. CARDIOVASCULAR: Regular rate and rhythm without murmurs or rubs. No S3. PULMONARY: Clear bilaterally. GASTROINTESTINAL: Soft, non-tender, non-distended. Bowel sounds normoactive. EXTREMITIES: No cyanosis or clubbing. No edema. NEUROLOGICAL: CN 2-12 grossly intact, no focal neurological deficits. DERMATOLOGICAL: Chronic ulceration and venous stasis of legs. Medications ??? acetaminophen 975 mg Oral Q8H ??? allopurinol 100 mg Oral Daily ??? atorvastatin 20 mg Oral Daily ??? fluticasone-vilanterol 1 puff Inhalation Daily ??? multivitamin RENAL 1 capsule Oral Daily ??? pantoprazole 40 mg Oral QAM AC ??? sevelamer carbonate 800 mg Oral TID w/meals ??? sodium chloride (PF) 3 mL Intracatheter Q8H ??? sucralfate 1 g Oral TID AC Data Laboratory: Recent Labs Lab 10/10/2172110/10/2121410/09/21220110/09/21 1348 10/09/2191110/08/21224610/08/21 190 WBC 7.2 -- -- -- 7.2 -- 7.1 HGB 9.7* 9.2* 10.3* < > 8.5* < > 8.1* HCT 31.5* -- -- -- 28.4* -- 26.1* MCV 109* -- -- -- 111* -- 110* PLT 173 -- -- -- 157 -- 161 < > = values in this interval not displayed. Recent Labs Lab 10/10/2192010/10/2172110/09/2191110/08/21209910/08/211901 NA -- 132* 134 -- 136 POTASSIUM -- 5.1 4.8 -- 3.9 CHLORIDE -- 100 100 -- 100 CO2 -- 25 28 -- 30 ANIONGAP -- 7 6 -- 6 GLC 126* 117* 98 < > 115* BUN -- 49* 42* -- 36* CR -- 4.60* 3.52* -- 2.80* GFRESTIMATED -- 13* 17* -- 23* GAMA -- 8.9 8.7 -- 8.8 < > = values in this interval not displayed. Recent Labs Lab 10/10/2192010/10/2172110/09/2191110/08/21209910/08/21 190 GLC 126* 117* 98 104* 115* Recent Labs Lab 10/10/2172110/10/2121410/09/212201 HGB 9.7* 9.2* 10.3* No results for input(s): CULT in the last 168 hours. Imaging: No results found for this or any previous visit (from the past 24 hour(s)). Dallin Farah DO MPH [facility] Hospitalist Clark Lentz [facility] [place] [address] 10/10/2021 Terry Wolfe MD - 10/10/2021 9:14 AM CDT Assessment and Plan: ESRD: last HD was on Monday. Wt 112.1 > 112.3. Labs show Na 132, K 5.1, HCO3 25, Cr 4.60. BP low. Orders reviewed and placed for dialysis in am. On renvela. Interval History: Hypotension: GI bleed: S/P IVF boluses and transfusion. BP is low. EGD today by GI. He is on sucralfate, protonix. Still getting octreotide infusion. Hgb 9.7. Afib: aortic stenosis, S/P AVR DM Obesity Review of Systems: Denies pain, SOB , N or V. Some GREY. Medications: ??? [Auto Hold] acetaminophen 975 mg Oral Q8H ??? [Auto Hold] allopurinol 100 mg Oral Daily ??? [Auto Hold] atorvastatin 20 mg Oral Daily ??? [Auto Hold] fluticasone-vilanterol 1 puff Inhalation Daily ??? [Auto Hold] multivitamin RENAL 1 capsule Oral Daily ??? pantoprazole 40 mg Oral QAM AC ??? [Auto Hold] sevelamer carbonate 800 mg Oral TID w/meals ??? [Auto Hold] sodium chloride (PF) 3 mL Intracatheter Q8H ??? sucralfate 1 g Oral BID AC ??? octreotide (sandoSTATIN) infusion ADULT 50 mcg/hr (10/09/21 1126) Current active medications and POLISHER DIAL medications reviewed, see medication list for details. Physical Exam: Vitals were reviewed Patient Vitals for the past 24 hrs: BP Temp Temp src Pulse Resp SpO2 Height Weight 10/10/21 0628 -- -- -- -- -- -- -- 112.3 kg (247 lb 8 oz) 10/10/21 0100 105/51 -- -- 70 -- -- -- -- 10/10/21 0011 (!) 84/38 -- -- 67 -- -- -- -- 10/09/21 2335 92/44 97.7 ??F (36.5 ??C) Oral 72 16 93 % -- -- 10/09/21 1408 109/49 97.7 ??F (36.5 ??C) Oral 69 20 95 % 1.753 m (5' 9) 112.1 kg (247 lb 1.6 oz) 10/09/21 1356 -- 97.7 ??F (36.5 ??C) Oral 69 18 95 % -- -- 10/09/21 1145 110/73 97.7 ??F (36.5 ??C) Axillary 70 20 98 % -- -- 10/09/21 1124 107/61 97.8 ??F (36.6 ??C) Axillary 81 20 -- -- -- 10/09/21 1115 -- -- -- -- -- 95 % -- -- 10/09/21 1100 107/69 -- -- 64 -- 97 % -- -- 10/09/21 1045 108/55 -- -- -- -- 98 % -- -- 10/09/21 0932 101/76 97.6 ??F (36.4 ??C) Axillary 68 20 -- -- -- 10/09/21 0921 (!) 84/61 97.6 ??F (36.4 ??C) -- 61 20 -- -- -- Temp: [97.6 ??F (36.4 ??C)-97.8 ??F (36.6 ??C)] 97.7 ??F (36.5 ??C) Pulse: [61-81] 70 Resp: [16-20] 16 BP: (84-110)/(38-76) 105/51 SpO2: [93 %-98 %] 93 % Temperatures: Current - Temp: 97.7 ??F (36.5 ??C); Max - Temp Av.7 ??F (36.5 ??C) Min: 97.6 ??F(36.4 ??C) Max: 97.8 ??F (36.6 ??C) Respiration range: Resp Av.1 Min: 16 Max: 20 Pulse range: Pulse Av.1 Min: 61 Max: 81 Blood pressure range: Systolic (24hrs), Av , Min:84 , Max:110 ; Diastolic (24hrs), Av, Min:38, Max:76 Pulse oximetry range: SpO2 Av.9 % Min: 93 % Max: 98 % I/O last 3 completed shifts: In: 300 Out: - Intake/Output Summary (Last 24 hours) at 10/10/2021 0914 Last data filed at 10/10/2021 0909 Gross per 24 hour Intake 500 ml Output 0 ml Net 500 ml Wt Readings from Last 4 Encounters: 10/10/21 112.3 kg (247 lb 8 oz) Data: Lab Results Component Value Date NA 132 10/10/2021 NA 134 10/09/2021 NA 136 10/08/2021 Lab Results Component Value Date CHLORIDE 100 10/10/2021 CHLORIDE 100 10/09/2021 CHLORIDE 100 10/08/2021 Lab Results Component Value Date BUN 49 10/10/2021 BUN 42 10/09/2021 BUN 36 10/08/2021 Lab Results Component Value Date POTASSIUM 5.1 10/10/2021 POTASSIUM 4.8 10/09/2021 POTASSIUM 3.9 10/08/2021 Lab Results Component Value Date CO2 25 10/10/2021 CO2 28 10/09/2021 CO2 30 10/08/2021 Lab Results Component Value Date CR 4.60 10/10/2021 CR 3.52 10/09/2021 CR 2.80 10/08/2021 Recent Labs Lab Test 10/10/21 0722 10/10/21 0215 10/09/21 2202 10/09/21 1348 10/09/21 0912 10/08/21 2247 10/08/21 1902 WBC 7.2 -- -- -- 7.2 -- 7.1 HGB 9.7* 9.2* 10.3* < > 8.5* < > 8.1* HCT 31.5* -- -- -- 28.4* -- 26.1* MCV 109* -- -- -- 111* -- 110* PLT 173 -- -- -- 157 -- 161 < > = values in this interval not displayed. Recent Labs Lab Test 10/08/211901 AST 15 ALT 16 ALKPHOS 116 BILITOTAL 0.8 No results for input(s): MAG in the last 47944 hours. No results for input(s): PHOS in the last 76958 hours. Recent Labs Lab Test 10/10/21 0722 10/09/21 0912 10/08/211901 GAMA 8.9 8.7 8.8 Lab Results Component Value Date GAMA 8.9 10/10/2021 Lab Results Component Value Date WBC 7.2 10/10/2021 HGB 9.7 (L) 10/10/2021 HCT 31.5 (L) 10/10/2021 MCV 109 (H) 10/10/2021 PLT 173 10/10/2021 Lab Results Component Value Date NA 132 (L) 10/10/2021 POTASSIUM 5.1 10/10/2021 CHLORIDE 100 10/10/2021 CO2 25 10/10/2021 GLC 117 (H) 10/10/2021 Lab Results Component Value Date BUN 49 (H) 10/10/2021 CR 4.60 (H) 10/10/2021 No results found for: MAG No results found for: PHOS Creatinine Date Value Ref Range Status 10/10/2021 4.60 (H) 0.66 - 1.25 mg/dL Final 10/09/2021 3.52 (H) 0.66 - 1.25 mg/dL Final 10/08/2021 2.80 (H) 0.66 - 1.25 mg/dL Final 04/08/2019 3.66 (H) 0.70 - 1.30 mg/dL Final 04/04/2019 3.32 (H) 0.70 - 1.30 mg/dL Final 04/01/2019 3.02 (H) 0.70 - 1.30 mg/dL Final Attestation: I have reviewed today's vital signs, notes, medications, labs and imaging. Terry Wolfe MD Christie Roldan MD - 10/10/2021 12:24 AM CDT Cross cover Paged for systolic blood pressure in 80s Patient admitted for GI Hemolobin check 2 hours ago was stable Will give fluid challenge normal saline 500 cc and recheck hemoglobin tomorrow Dallin Farah DO - 10/09/2021 10:04 AM CDT [facility] Hospitalist Progress Note Name: Jonatan Mejia Provider: Dallin Farah DO, MPH Date of Service: 10/09/2021 Summary of Stay: Jonatan Mejia is a 73 year old. male with a past medical history pertinent for??ESRD on HD MWF, paroxysmal Afib on ASA 81m g daily, aortic stenosis??s/p bioprosthetic aortic valve replacement, hypertension, diabetes mellitus type II, secondary hyperparathyroidism, esophageal reflux/ barretts esophogus, prior GIB due to gastric ulcer and morbid obesity??who presents to the ED from [place] [facility] due to concerns of hematemesis and melanotic stool. He had just finished HD (took 1.2L) and presented to [place] ED due to concerns of dizziness and hematemesis. ?? Work up at [place] ED showed hgb of 7.5 and soft pressures in the 100's. CT abd pelvis showed normal distal esophagus, stomach and normal liver. No symptoms of obstruction or mass. There were moderate ascites in the dependent abdomen. He received NS bolus (500cc) and 1 unit(s) PRBC and transferred to [facility] ED. Work up in our ED reveals hemoglobin of 8.1 (baseline 9's) and blood pressure in the 70's-100's. He received 1L of NS. GI was made aware, no indication for emergent EGD. But was placed on Protonix drip, octreotide drip and rocephin (due to concern for possible liver disease causing ascites seen on CT). ?? Problem list: #Acute GIB, upper source given hematemesis and reported melanotic stool 2 episodes of rust like emesis yesterday but apparently has had dark black stools intermittently for the last month. Last EGD 03/2017 showed Brannon's esophagus with polyps in the gastric fundus but no obvious bleeding. Currently no further episodes of hematemesis or christiano GI bleed since arrival to the ED. Denies NSAID, tobacco or alcohol. Possibly due to underlying Barretts. Plan: -Continue Protonix drip -Octreotide drip started in the emergency room for possible possible esophageal varices (though I have low suspicion of this) we will continue this for now till seen by GI. -Serial hemoglobin q8h, most recent at 8.5. Transfused 1 unit(s) PRBC yesterday in ED to keep hemoglobin above 8(given history of CAD). -GI consult for EGD. -Hold ASA. ?? #ESRD on HD MWF #Intra abd ascites Pt is anuric. Had HD Monday but apparently only had 1.2 L off. Currently at base wt of 108-109 kg. Suspect ascites is 3rd spacing for CLD, liver looks ok and he is not a drinker, no evidence of cirrhosis on CT scan, normal hepatic panel. -Consult Nephrology for HD arrangements. -Stop IVF as he does not make urine and is stable. ?? #pAfib -Sounds like he's in sinus. Rate controlled. -Declined Watchman in the past, only on ASA. -Hold ASA and monitor on Tele. ?? #CAD s/p stent x2 #Hx of severe MR s/p mitral clips #Bioprosthetic AVR -Stable from cardiac standpoint. -No recent angina of GREY. -Aim to keep hemoglobin above 8. -Hold ASA. -Hold Metoprolol given soft BPs. ?? #COPD -No evidence of acute exacerbation. -Resumed advair and will have duonebs PRN. ?? #Gout -Resumed allopurinol. DVT Prophylaxis: Pneumatic Compression Devices Code Status: Full Code Diet: NPO per Anesthesia Guidelines for Procedure/Surgery Except for: Meds, Ice Chips Bustamante Catheter: Not present Disposition: Expected discharge in 2 days to home. Goals prior to discharge include EGD. Incidental Findings: None. Family updated today: No Interval History Assumed care from previous hospitalist. The history was fully reviewed. The patient reports doing well. He is hungry and wants to eat. No chest pain or shortness of breath.No nausea, vomiting, diarrhea, constipation. No stools since arrival to the ED. No fevers. No other specific complaints identified. -Data reviewed today: I personally reviewed all new labs and imaging results over the last 24 hours. Physical Exam Temp: 97.6 ??F (36.4 ??C) Temp src: Axillary BP: 101/76 Pulse: 68 Resp: 20 SpO2: 96 % O2 Device: None (Room air) There were no vitals filed for this visit. Vital Signs with Ranges Temp: [97.6 ??F (36.4 ??C)-98.4 ??F (36.9 ??C)] 97.6 ??F (36.4 ??C) Pulse: [58-84] 68 Resp: [16-20] 20 BP: (78-101)/(40-76) 101/76 SpO2: [94 %-100 %] 96 % I/O last 3 completed shifts: In: 350 Out: - GENERAL: No apparent distress. Awake, alert, and fully oriented. HEENT: Normocephalic, atraumatic. Extraocular movements intact. CARDIOVASCULAR: Regular rate and rhythm without murmurs or rubs. No S3. PULMONARY: Clear bilaterally. GASTROINTESTINAL: Soft, non-tender, non-distended. Bowel sounds normoactive. EXTREMITIES: No cyanosis or clubbing. No edema. NEUROLOGICAL: CN 2-12 grossly intact, no focal neurological deficits. DERMATOLOGICAL: Chronic ulceration and venous stasis of legs. Medications ??? octreotide (sandoSTATIN) infusion ADULT 50 mcg/hr (10/09/21 0900) ??? pantoprazole (PROTONIX) infusion ADULT/PEDS GREATER than or EQUAL to 45 kg 8 mg/hr (10/09/21 0900) ??? acetaminophen 975 mg Oral Q8H ??? allopurinol 100 mg Oral Daily ??? atorvastatin 20 mg Oral Daily ??? fluticasone-vilanterol 1 puff Inhalation Daily ??? multivitamin RENAL 1 capsule Oral Daily ??? sevelamer carbonate 800 mg Oral TID w/meals ??? sodium chloride (PF) 3 mL Intracatheter Q8H Data Laboratory: Recent Labs Lab 10/09/21 0912 10/08/21 2247 10/08/21 1902 WBC 7.2 -- 7.1 HGB 8.5* 7.7* 8.1* HCT 28.4* -- 26.1* MCV 111* -- 110* PLT 157 -- 161 Recent Labs Lab 10/09/21 0912 10/08/21 2100 10/08/21 1902 NA 134 -- 136 POTASSIUM 4.8 -- 3.9 CHLORIDE 100 -- 100 CO2 28 -- 30 ANIONGAP 6 -- 6 GLC 98 104* 115* BUN 42* -- 36* CR 3.52* -- 2.80* GFRESTIMATED 17* -- 23* GAMA 8.7 -- 8.8 Recent Labs Lab 10/09/21 0912 10/08/21 2100 10/08/21 1902 GLC 98 104* 115* Recent Labs Lab 10/09/21 0912 10/08/21 2247 10/08/21 190 HGB 8.5* 7.7* 8.1* No results for input(s): CULT in the last 168 hours. Imaging: No results found for this or any previous visit (from the past 24 hour(s)). Dallin Farah DO MPH [facility] Hospitalist Clark Lent[facility] [place] [address] 10/09/2021 documented in this encounter H&P Notes Layne Rossi PA-C - 10/08/2021 9:27 PM CDT [facility] Admission History and Physical Examination NAME: Jonatan Mejia : 1945 Date of Admission: 10/08/2021 Assessment & Plan Jonatan Mejia is a 73 y.o. male with a past medical history pertinent for??ESRD on HD MWF, paroxysmal Afib on ASA 81m g daily, aortic stenosis??s/p bioprosthetic aortic valve replacement, hypertension, diabetes mellitus type II, ??secondary hyperparathyroidism, esophageal reflux/barretts esophogus,Hx of GIB due to gastric ulcer and morbid obesity??who presents to the ED from [place] ED due to concerns of hematemesis and melanotic stool. He had just finished HD (took 1.2L) and presented to [place] ED due to concerns of dizziness and hematemesis. Work up at [place] ED showed hgb of 7.5 and soft bps in the 100's. CT abd pelvis showed normal distal esophagus, stomach and normal liver. No sxs of obstruction or mass. There were moderate ascites in the dependent abd. He received NS bolus (500cc) and 1u PRBC and transferred to [facility] ED. Work up in our ED reveals hgb of 8.1 (baseline 9's) and Bp's in the 79's-100's. He received 1L of NSand a second hgb is pending. GI was made aware, no indication for emergent EGD. But was placed on Protonix gtt, octreotide and rocephin (due to concern for possible liver dz causing ascites seen on CT). #Acute GIB, upper source given hematemesis and reported melanotic stool 2 episodes of rust like emesis today but apparently has had dark black stools intermittently for the last month. Last EGD 03/2017 showed Brannon's esophagus with polyps in the gastric fundus but no obvious bleeding. Currently no further episodes of hematemesis or christiano GI bleed. Denies NSAID, tobacco or ETOH. Possibly due to underlying Barretts. Plan: -Continue Protonix drip -Octreotide started in the emergency room for presumed possible esophageal varices (though I have low suspicion of this) we will continue this for now till seen by GI -Serial hemoglobin Q6, most recent at 7.7 from 8.1. Will transfuse 1u PRBC to keep hgb above 8 (kamila given hx CAD) - GI consult in am to eval for EGD - Hold ASA #ESRD on HD MWF #Intra abd ascites Pt is anuric. S/p HD today but apparently only had 1.2 L off. Currently at base wt of 108-109kg Suspect ascites is 3rd spacing for CLD, liver looks ok and he is not a drinker, no evidence of cirrhosis on CT scan, normal hepatic panel. - Consult Nephrology - Currently getting maintenance fluid to support BP #pAfib - Sounds like he's in sinus. Rate controlled - Declined Watchman in the past, only on ASA - Hold ASA and monitor on Tele #CAD s/p stent x2 #Hx of severe MR s/p mitral clips #Bioprosthetic AVR - Stable from cardiac standpoint - No recent angina of GREY - Aim to keep hgb above 8 - Hold ASA - Hold Metoprolol given soft BPs #COPD - No e/o acute exacerbation - Resume advair and will have duonebs PRN #Gout -resume allopurinol Awaiting formal pharmacy reconciliation to resume home medications. DVT Prophylaxis: Low Risk/Ambulatory with no VTE prophylaxis indicated Code Status: Full Code COVID PCR TESTING STATUS: Negative 2-3 days ANAYELI LeonC Primary Care Physician LIBAN LEOS Chief Complaint Melanotic stool , hematemesis History is obtained from the patient Discussed with Dr. Ragsdale in the ED, full chart review including lab work, imaging, and vital signs were reviewed. History of Present Illness Jonatan Mejia is a 73 y.o. male with a past medical history pertinent for??ESRD on HD MWF, paroxysmal Afib on ASA 81m g daily, aortic stenosis??s/p bioprosthetic aortic valve replacement, hypertension, diabetes mellitus type II, ??secondary hyperparathyroidism, esophageal reflux/barretts esophogus,Hx of GIB due to gastric ulcer and morbid obesity??who presents to the ED from [place] ED due to concerns of hematemesis and melanotic stool. He had just finished HD (took 1.2L) and presented to [place] ED due to concerns of dizziness and hematemesis. Work up at [place] ED showed hgb of 7.5 and soft bps in the 100's. CT abd pelvis showed normal distal esophagus, stomach and normal liver. No sxs of obstruction or mass. There were moderate ascites in the dependent abd. He received NS bolus (500cc) and 1u PRBC and transferred to [facility] ED. Work up in our ED reveals hgb of 8.1 (baseline 9's) and Bp's in the 79's-100's. He received 1L of NSand a second hgb is pending. GI was made aware, no indication for emergent EGD. But was placed on Protonix gtt, octreotide and rocephin (due to concern for possible liver dz causing ascites seen on CT). Past Medical History I have reviewed this patient's medical history and updated it with pertinent information if needed. Osteoarthritis of knees Non rheumatic mitral valve stenosis Atrial fibrillation Anemia CKD Secondary hyperparathyroidism HTN HPL Neuropathy Heart failure Diabetes Barrets esophagus Gout Past Surgical History I have reviewed this patient's surgical history and updated it with pertinent information if needed. Subtalar arthroereisis Aortic valve replacement EGD Prior to Admission Medications Prior to Admission Medications Prescriptions Last Dose Informant Patient Reported? Taking? allopurinol (ZYLOPRIM) 100 MG tablet Yes Yes Sig: Take 100 mg by mouth daily aspirin (ASA) 81 MG EC tablet Yes No Sig: Take 81 mg by mouth atorvastatin (LIPITOR) 20 MG tablet Yes Yes Sig: Take 20 mg by mouth daily fluticasone (FLONASE) 50 MCG/ACT nasal spray Yes Yes Sig: [place] 1 spray in nostril daily fluticasone-salmeterol (ADVAIR HFA) 115-21 MCG/ACT inhaler Yes Yes Sig: Inhale 2 puffs into the lungs 2 times daily lidocaine-prilocaine (EMLA) 2.5-2.5 % external cream Yes No Sig: APPLY SMALL AMOUNT TO ACCESS SITE (AVF) 1 TO 2 HOURS BEFORE DIALYSIS. COVER WITH OCCLUSIVE DRESSING (SARAN WRAP) metoprolol succinate ER (TOPROL XL) 25 MG 24 hr tablet Yes Yes Sig: Take 0.5 tablets by mouth daily multivitamin RENAL (MULTIVITAMIN RENAL) 1 MG capsule Yes Yes Sig: Take 1 capsule by mouth sevelamer carbonate (RENVELA) 800 MG tablet Yes No Sig: Take 1 tablet by mouth 3 times daily (with meals) Facility-Administered Medications: None Allergies Allergies Allergen Reactions ??? Blood-Group Specific Substance Other (See Comments) Patient has a Suggestive Warm Auto antibody. Blood products may be delayed. Draw patient 24 hours prior to transfusion. Draw one red top and two purple top tubes for all type and screen orders. ??? Lisinopril Cough Social History I have reviewed this patient's social history and updated it with pertinent information if needed. Jonatan Mejia Family History I have reviewed this patient's family history and updated it with pertinent information if needed. No family history on file. Review of Systems The 10 point Review of Systems is negative other than noted in the HPI or here. Physical Exam Temp: 97.9 ??F (36.6 ??C) Temp src: Oral BP: (!) 82/40 Pulse: 62 Resp: 16 SpO2: 99 % Vital Signs with Ranges Temp: [97.9 ??F (36.6 ??C)] 97.9 ??F (36.6 ??C) Pulse: [62-66] 62 Resp: [16] 16 BP: (82-96)/(40-44) 82/40 SpO2: [94 %-99 %] 99 % 0 lbs 0 oz Constitutional: Awake, alert, no apparent distress. Eyes: Conjunctiva and pupils examined and normal. HEENT: Dry mucous membranes, normal dentition. Respiratory: Clear to auscultation bilaterally, no crackles or wheezing. Cardiovascular: Regular rate and rhythm, normal S1 and S2, and no murmur noted. GI: Soft, distended obese but non-tender, bowel sounds present. No rebound tenderness or guarding. Lymph/Hematologic: No anterior cervical or supraclavicular adenopathy. Skin: No rashes, no cyanosis, mild BLE edema, with excoriation and open wounds. Musculoskeletal: No deformities noted. No erythema or tenderness. Moving all extremities. Neurologic: No focal deficits noted. Speech is clear. Coordination and strength grossly normal. Psychiatric: Appropriate affect. Data Data reviewed today: EKG: pending Imaging: No results found for this or any previous visit (from the past 24 hour(s)). Recent Labs Lab 10/08/21 2100 10/08/21 1902 WBC -- 7.1 HGB -- 8.1* MCV -- 110* PLT -- 161 NA -- 136 POTASSIUM -- 3.9 CHLORIDE -- 100 CO2 -- 30 BUN -- 36* CR -- 2.80* ANIONGAP -- 6 GAMA -- 8.8 GLC 104* 115* ALBUMIN -- 2.9* PROTTOTAL -- 6.9 BILITOTAL -- 0.8 ALKPHOS -- 116 ALT -- 16 AST -- 15 Layne MARTIN-C [facility] Medicine October 08, 2021 Securely message with the [employer] Console (learn more here) Text page via [facility] Paging/Directory Associated attestation - Fadi Viveros DO - 10/09/2021 2:30 PM CDT Physician Attestation I, Fadi Viveros DO, have reviewed and discussed with the advanced practice provider their history, physical and plan for Jonatan Mejia. I did not participate in a shared visit by interviewing or examining the patient and this should be billed as an advanced practice provider only visit. Fadi Viveros DO Date of Service (when I saw the patient): I did not personally see this patient today. documented in this encounter Consult Notes Joce Zamudio MD - 10/09/2021 11:33 AM CDTAssociated Order(s): GASTROENTEROLOGY IP CONSULT [facility] Gastroenterology Consultation Joce Zamudio MD Patient Name: Jonatan Mejia Date of : 1945 Age: [age] year old Date of Admission: 10/08/2021 Today's Date: 10/09/2021 Assessment and Plan: Impression: -76-year-old gentleman with complex medical history as outlined below admitted with hematemesis. There was concomitant hemoglobin drop. Differential diagnosis includes known esophagitis, known duodenitis, peptic ulcer disease, nonsteroidal gastropathy. Variceal upper GI bleeding unlikely given negative EGD in July 2021 and no history of significant liver disease. Hemoglobin stable and hemodynamics are stable. Remote history of GI bleeding from ulcers in the past. No records available. -Multiple chronic medical problems as outlined below under the care of admitting team. Recommendations: -Continue pantoprazole for now. Unsure that octreotide drip is going to help him given that he has no history of variceal bleeding or significant liver disease. However, will not discontinue this for now until after EGD tomorrow. -EGD tomorrow morning in the operating room with MAC IV anesthesia given medical problems. -Monitor hemoglobin hematocrit and transfuse as indicated per admitting team. -Clear liquids okay today, n.p.o. after midnight. -Case and findings discussed with Dr. Farah. -We will follow while hospitalized. Please call any further questions. Primary Care Physician: Liban Leos None Requesting Physician: Dr. Farah Chief Complaint: Reported hematemesis with anemia and possible upper GI bleeding. History of Present Illness: Jonatan Mejia is a 76 year old male who is admitted through the emergency department with reportsof hematemesis. He has a past medical history of diabetes and gastric ulcer disease with bleeding inthe past. He reports last night he had a dark stool and started having then some abdominal pain withemesis of guerrero red emesis. He has had no significant ongoing bloody bowel movements. He has minimal epigastric pain. He was lightheaded at that time and he did have some pain at that time so he came to the emergency room. He has dialysis scheduled for next Monday and the renal consultation from thisadmission is reviewed and appreciated. He had an EGD June 28 at [facility]. Preoperative indication was Brannon's surveillance. 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 Biopsies were negative for Brannon's but did show esophagitis. Stomach showed diffuse gastritis with old blood consistent with erosive gastritis. Moderate duodenitis was noted. This was confirmed on biopsy and suspected be due to nonsteroidals likely aspirin. He reports an EGD in the remote past at [facility] that showed ulcers. He has ascites on a CAT scan but noliver disease. Hemoglobin and hematocrit are decreased but stable after transfusion. BUN/creatinine ratio are difficult to interpret given his renal failure. He has no signs or symptoms of ongoing active GI bleeding. Past Medical History: Osteoarthritis, mitral valve stenosis, atrial fibrillation, anemia, CKD with dialysis, hyperparathyroidism, hypertension, hyperlipidemia, neuropathy, congestive heart failure, diabetes, Brannon's esophagus as outlined above, GI bleeding history as outlined above. Patient also has history of aortic valve replacement. Past Surgical History: See original H&P and other consult notes. Home Medications: Prior to Admission medications Medication Sig Last Dose Taking? Auth Provider Industrial Economist End Date allopurinol (ZYLOPRIM) 100 MG tablet Take 100 mg by mouth daily 10/07/2021 at Unknown time Yes Unknown, Entered By History aspirin (ASA) 81 MG EC tablet Take 81 mg by mouth 10/07/2021 at PM Yes Unknown, Entered By History atorvastatin (LIPITOR) 20 MG tablet Take 20 mg by mouth daily 10/07/2021 at Unknown time Yes Unknown,Entered By History Yes fluticasone (FLONASE) 50 MCG/ACT nasal spray Windsor 1 spray in nostril daily 10/07/2021 at Unknown time Yes Unknown, Entered By History fluticasone-salmeterol (ADVAIR HFA) 115-21 MCG/ACT inhaler Inhale 2 puffs into the lungs 2 times daily 10/07/2021 at Unknown time Yes Unknown, Entered By History Yes lidocaine-prilocaine (EMLA) 2.5-2.5 % external cream APPLY SMALL AMOUNT TO ACCESS SITE (AVF) 1 TO 2 HOURS BEFORE DIALYSIS. COVER WITH OCCLUSIVE DRESSING (SARAN WRAP) 10/08/2021 at Unknown time Yes Unknown, Entered By History Yes metoprolol succinate ER (TOPROL XL) 25 MG 24 hr tablet Take 0.5 tablets by mouth daily 10/07/2021 at Unknown time Yes Unknown, Entered By History Yes multivitamin RENAL (MULTIVITAMIN RENAL) 1 MG capsule Take 1 capsule by mouth 10/08/2021 at AM Yes Unknown, Entered By History sevelamer carbonate (RENVELA) 800 MG tablet Take 1 tablet by mouth 3 times daily (with meals) 10/07/2021 at Unknown time Yes Unknown, Entered By History Current Medications: ??? acetaminophen 975 mg Oral Q8H ??? allopurinol 100 mg Oral Daily ??? atorvastatin 20 mg Oral Daily ??? fluticasone-vilanterol 1 puff Inhalation Daily ??? multivitamin RENAL 1 capsule Oral Daily ??? sevelamer carbonate 800 mg Oral TID w/meals ??? sodium chloride (PF) 3 mL Intracatheter Q8H ipratropium - albuterol 0.5 mg/2.5 mg/3 mL, lidocaine 4%, lidocaine (buffered or not buffered), melatonin, oxyCODONE, sodium chloride (PF) Allergies: Allergies Allergen Reactions ??? Blood-Group Specific Substance Other (See Comments) Patient has a Suggestive Warm Auto antibody. Blood products may be delayed. Draw patient 24 hours prior to transfusion. Draw one red top and two purple top tubes for all type and screen orders. ??? Lisinopril Cough Social History: Jonatan Mejia Family History: No primary relatives with colorectal cancer or inflammatory bowel disease Review of Systems: Comprehensive GI review of systems is completed and is negative except as above. Physical Exam: Vital Signs with Ranges Temp: [97.6 ??F (36.4 ??C)-98.4 ??F (36.9 ??C)] 97.6 ??F (36.4 ??C) Pulse: [58-84] 68 Resp: [16-20] 20 BP: (78-101)/(40-76) 101/76 SpO2: [94 %-100 %] 96 % I/O's Last 24 hours I/O last 3 completed shifts: In: 350 Out: - Constitutional: Sitting in bed comfortably, alert and no distress. HEENT: PERRL, EOMI, sclera nonicteric, conjunctiva pale and moist. NECK: Supple, nontender. No lymphadenopathy, JVD or bruits noted. PULMONARY: Clear to auscultation bilaterally. CARDIOVASCULAR: S1, S2, no S3, no S4, no murmur, regular rate and rhythm ABDOMEN: Soft, morbidly obese, nondistended, no tympany, no organomegaly, no fullness, guarding or rebound are noted. NEURO: Alert and oriented to place, time and person. Neurological exam grossly nonfocal, CN II through XII are grossly intact. Detailed neurological exam is not performed. EXT: No cyanosis, clubbing or edema. Data: All new lab and imaging data was reviewed. . Recent Labs Lab Test 10/09/21 0910/08/21 2247 10/08/214 10/08/21 19004/08/19 0745 WBC 7.2 -- -- 7.1 5.2 HGB 8.5* 7.7* -- 8.1* 7.9* MCV 111* -- -- 110* 100 PLT 157 -- -- 161 140 INR -- -- 1.34* -- -- Recent Labs Lab Test 10/09/21 0910/08/21 1902 04/08/19 0745 NA 134 136 137 POTASSIUM 4.8 3.9 5.2* CHLORIDE 100 100 102 CO2 28 30 22 BUN 42* 36* 101* CR 3.52* 2.80* 3.66* ANIONGAP 6 6 13 Recent Labs Lab Test 10/08/211901 ALBUMIN 2.9* BILITOTAL 0.8 ALT 16 AST 15 ALKPHOS 116 Joce Zamudio MD, [facility] [phone] Terry Wolfe MD - 10/09/2021 10:29 AM CDT Consult Date: 10/09/2021 REQUESTING PHYSICIAN: Dallin Farah MD. PHARMACY INFORMATICIST: Dallas Wolfe MD. REASON FOR CONSULTATION: End-stage renal disease, on hemodialysis. HISTORY OF PRESENT ILLNESS: This is a 73-year-old with end-stage renal disease who dialyzes Monday, Monday, Monday. [place] He drives himself to dialysis. He has a history of secondary hyperparathyroidism. He was admitted with upper gastrointestinal bleed. He was transfused 2 units and started on octreotide and Protonix drips. He also got some Rocephin and some lactated Ringer boluses. He is chronically on Renvela. A CT scan was done, which showed a normal liver, but some ascites. He had hemodialysis yesterday at his home dialysis unit. He ran for 4 hours, but got 1.9 liters of ultrafiltration as opposed to his usual 4 liters. Again, prior to admission, he was on Renvela and metoprolol. PAST MEDICAL HISTORY: ASCVD, status post PTCA and stent, aortic stenosis, status post valve replacement and atrial fibrillation. He was on aspirin. He has hypertension, diabetes, morbid obesity and a history of GI bleeds in the past. 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 He lives alone in a [place]. REVIEW OF SYSTEMS: He feels relatively well today. He is not short of breath and denies chest or abdominal pain. He wants to eat, but is being kept n.p.o. PHYSICAL EXAMINATION: GENERAL: He is alert. He has truncal obesity. He is afebrile, pulse 72, blood pressure 101/76, respiratory rate 20. HEENT: Shows no trauma. The eyes show pupils, round and react to light. Mouth shows good dentition. NECK: Supple. LUNGS: Clear anterior breath sounds. HEART: Regular rhythm, normal S1, S2. 2/6 systolic murmur. No jugular venous distention. ABDOMEN: Obese and distended. It is soft and nontender. LOWER EXTREMITIES: Stasis changes with areas of ulceration and excoriation and some erythema. Left upper arm shows an AV fistula with a good bruit and thrill. LABORATORY DATA: Today, his potassium is 4.8. Sodium 134. Hemoglobin 8.5. Yesterday, his potassium was 3.9, bicarbonate 30, creatinine 2.80, albumin 2.9, calcium 8.8, hemoglobin 8.1. IMPRESSION: 1. End-stage renal disease: We will check laboratories in the morning. We will tentatively plan his next dialysis Monday. We will run him without heparin when we do so. He has a left arm fistula that appears to be functioning. His laboratories have been reviewed and there is no acute indication for dialysis. 2. GI bleed. He is being treated with octreotide and Protonix. He has been transfused. Management will be per GI and Internal Medicine. Terry Wolfe MD MT: ETREMT Name: JONATAN MEJIA. Account: [id number] : 1945 Consult Date: 10/09/2021 Document: [id number] Terry Wolfe MD - 10/09/2021 10:24 AM CDTAssociated Order(s): NEPHROLOGY IP CONSULT See dictation. Confirmation # [id number]. documented in this encounter ED Notes Essence Osuna RN - 10/09/2021 1:16 PM CDT Pt received one unit of RBC this morning, tolerated well, no transfusion reaction. Stepdaughter Melanie jin, aware of patient transfer to [facility]. Advanced to clear liquid diet, tolerating well. Pt will be NPO at midnight for EGD on 10/10. Kaylee Trejo RN - 10/08/2021 11:05 PM CDT [facility] ED Nurse Handoff Report Jonatan Mejia is a 76 year old male ED Chief complaint: Hypotension . ED Diagnosis: Final diagnoses: UGI bleed Allergies: Allergies Allergen Reactions ??? Blood-Group Specific Substance Other (See Comments) Patient has a Suggestive Warm Auto antibody. Blood products may be delayed. Draw patient 24 hours prior to transfusion. Draw one red top and two purple top tubes for all type and screen orders. ??? Lisinopril Cough Code Status: Full Code Activity level - Baseline/Home: Independent. Activity Level - Current: Assist X 1. Lift room needed:No. Bariatric: No Hot Molder Needed: No Isolation: No. Infection: Not Applicable. Vital Signs: Vitals: 10/08/21 2130 10/08/21 2200 10/08/21 2230 10/08/21 2245 BP: (!) 79/47 101/51 (!) 78/44 (!) 88/54 Pulse: 67 83 84 72 Resp: Temp: TempSrc: SpO2: 99% 98% 100% 100% Cardiac Rhythm: , Pain level: Patient confused: No. Patient Falls Risk: Yes. Elimination Status: Has not voided while in the ER, does not void often due to dialysis Patient Report - Initial Complaint: Hypotension. Focused Assessment: Jonatan Mejia is a 76 year old male with history of diabetes and a abdominal bleed who presents with hematemesis. The patient states that this morning he woke up at a normal time and went to the bathroom where he noticed a very dark stool. He then went to sit down and watch the news when his stomach began hurting and he got a trash can and threw up what he saw was guerrero red vomit. He denies having ate anything red. He felt better and ate breakfast and went to his dialysis. He felt light headed and his stomach hurt but did notwant to miss treatment. He told his doctor this who thought he he should to to the ED but first the patient wanted to get dialysis. After this his daughter got him and after a little snack he threw up in the car and came to the ED. He also notes he has shortness of breath. He arrived with a low blood pressure. He states that they did take off fluid at dialysis. He denies liver problems. ?? Review of Systems Respiratory: Positive for shortness of breath. Gastrointestinal: Positive for abdominal pain and vomiting. Dark stool Neurological: Positive for light-headedness. All other systems reviewed and are negative. ?? Tests Performed: labs. Abnormal Results: Labs Ordered and Resulted from Time of ED Arrival to Time of ED Departure COMPREHENSIVE METABOLIC PANEL - Abnormal Result Value Sodium 136 Potassium 3.9 Chloride 100 Carbon Dioxide (CO2) 30 Anion Gap 6 Urea Nitrogen 36 (*) Creatinine 2.80 (*) Calcium 8.8 Glucose 115 (*) Alkaline Phosphatase 116 AST 15 ALT 16 Protein Total 6.9 Albumin 2.9 (*) Bilirubin Total 0.8 GFR Estimate 23 (*) CBC WITH PLATELETS AND DIFFERENTIAL - Abnormal WBC Count 7.1 RBC Count 2.37 (*) Hemoglobin 8.1 (*) Hematocrit 26.1 (*) MCV 110 (*) MCH 34.2 (*) MCHC 31.0 (*) RDW 18.6 (*) Platelet Count 161 % Neutrophils 81 % Lymphocytes 7 % Monocytes 11 % Eosinophils 1 % Basophils 0 % Immature Granulocytes 0 NRBCs per 100 WBC 0 Absolute Neutrophils 5.7 Absolute Lymphocytes 0.5 (*) Absolute Monocytes 0.8 Absolute Eosinophils 0.0 Absolute Basophils 0.0 Absolute Immature Granulocytes 0.0 Absolute NRBCs 0.0 INR - Abnormal INR 1.34 (*) GLUCOSE BY METER - Abnormal GLUCOSE BY METER POCT 104 (*) COVID-19 VIRUS (CORONAVIRUS) BY PCR - Normal SARS CoV2 PCR Negative HEMOGLOBIN TYPE AND SCREEN, ADULT ABO/RH(D) O NEG Antibody Screen Negative SPECIMEN EXPIRATION DATE ABO/RH TYPE AND SCREEN . Treatments provided: see MAR Family Comments: Spoke with pt's stepdaughter, Brianna, , and informed her of admission [facility] boarding status. She will visit tomorrow and would like an update in the morning. OBS brochure/video discussed/provided to patient: N/A ED Medications: Medications pantoprazole (PROTONIX) 80 mg in sodium chloride 0.9 % 100 mL infusion (8 mg/hr Intravenous New Bag 10/08/212034) octreotide (sandoSTATIN) 1,250 mcg in D5W 250 mL (50 mcg/hr Intravenous New Bag 10/08/212032) cefTRIAXone (ROCEPHIN) 2 g vial to attach to NS 100 ml bag for ADULTS or NS 50 ml bag for PEDS (0 g Intravenous Stopped 10/08/212141) octreotide (sandoSTATIN) injection 50 mcg (50 mcg Intravenous Given 10/08/212031) ondansetron (ZOFRAN) injection 4 mg (4 mg Intravenous Given 10/08/212116) lactated ringers BOLUS 250 mL (0 mLs Intravenous Stopped 10/08/212141) lactated ringers BOLUS 250 mL (250 mLs Intravenous New Bag 10/08/212142) Drips infusing: Yes For the majority of the shift, the patient's behavior Green. Interventions performed were N/a. Sepsis treatment initiated: No Patient tested for COVID 19 prior to admission: YES ED Nurse Name/Phone Number: Kayla Zacarias RN, 11:05 PM RECEIVING UNIT ED HANDOFF REVIEW Above ED Nurse Handoff Report was reviewed: Yes Reviewed by: Kaylee Trejo RN on October 09, 2021 at 12:54 PM Essence Cohn RN - 10/08/2021 6:30 PM CDT sent from [place] [facility]. Dialysis patient with hypotension today. Given 500ml and 1 unit PRBC at [place]. Florentino Ragsdale MD - 10/08/2021 6:23 PM CDT History Chief Complaint: Hypotension ADEEL Mejia is a 76 year old male with history of diabetes and UGI bleeding who presents with hematemesis. The patient states that this morning he woke up at a normal time and went to the bathroomwhere he noticed a very dark stool. He then went to sit down and watch the news when his stomach began hurting and he got a trash can and threw up what he saw was guerrero red vomit. He denies having ate anything red. He felt better and ate breakfast and went to his dialysis. He felt light headed and his stomach hurt but did not want to miss treatment. He told his doctor this who thought he he should to to the ED but first the patient wanted to get dialysis. After this his daughter got him and after a little snack he threw up in the car and came to the ED. He also notes he has shortness of breath. He arrived with a low blood pressure. He states that they took off about 1.2l @ dialysis. He denies liver problems. Review of Systems Respiratory: Positive for shortness of breath. Gastrointestinal: Positive for abdominal pain and vomiting. Dark stool Neurological: Positive for light-headedness. All other systems reviewed and are negative. Allergies: Lisinopril Homeopathic products Medications: Duoneb Advair Flonase Zyloprim Lipitor Past Medical History: Osteoarthritis of knees Non rheumatic mitral valve stenosis Atrial fibrillation Anemia CKD Secondary hyperparathyroidism HTN HPL Neuropathy Heart failure Diabetes Barrets esophagus Gout Past Surgical History: Subtalar arthroereisis Aortic valve replacement EGD Family History: Father-HTN Mother-Heart disease Social History: The patient presents to the ED via EMS. Physical Exam Patient Vitals for the past 24 hrs: BP Temp Temp src Pulse Resp SpO2 10/08/21 1828 96/44 97.9 ??F (36.6 ??C) Oral 66 16 94 % Physical Exam Nursing note and vitals reviewed. HENT: Mouth/Throat: Moist mucous membranes. Eyes: EOMI, nonicteric sclera Cardiovascular: Normal rate, irregularly irregular rhythm, no murmurs, rubs, or gallops Pulmonary/Chest: Effort normal and breath sounds normal. No respiratory distress. No wheezes. No rales. Abdominal: Soft. Nontender, nondistended, no guarding or rigidity. Musculoskeletal: Normal range of motion. Neurological: Alert. Moves all extremities spontaneously. Skin: Skin is warm and dry. No rash noted. Psychiatric: Normal mood and affect. Emergency Department Course Laboratory: Labs Ordered and Resulted from Time of ED Arrival to Time of ED Departure COMPREHENSIVE METABOLIC PANEL - Abnormal Result Value Sodium 136 Potassium 3.9 Chloride 100 Carbon Dioxide (CO2) 30 Anion Gap 6 Urea Nitrogen 36 (*) Creatinine 2.80 (*) Calcium 8.8 Glucose 115 (*) Alkaline Phosphatase 116 AST 15 ALT 16 Protein Total 6.9 Albumin 2.9 (*) Bilirubin Total 0.8 GFR Estimate 23 (*) CBC WITH PLATELETS AND DIFFERENTIAL - Abnormal WBC Count 7.1 RBC Count 2.37 (*) Hemoglobin 8.1 (*) Hematocrit 26.1 (*) MCV 110 (*) MCH 34.2 (*) MCHC 31.0 (*) RDW 18.6 (*) Platelet Count 161 % Neutrophils 81 % Lymphocytes 7 % Monocytes 11 % Eosinophils 1 % Basophils 0 % Immature Granulocytes 0 NRBCs per 100 WBC 0 Absolute Neutrophils 5.7 Absolute Lymphocytes 0.5 (*) Absolute Monocytes 0.8 Absolute Eosinophils 0.0 Absolute Basophils 0.0 Absolute Immature Granulocytes 0.0 Absolute NRBCs 0.0 GLUCOSE BY METER - Abnormal GLUCOSE BY METER POCT 104 (*) INR COVID-19 VIRUS (CORONAVIRUS) BY PCR TYPE AND SCREEN, ADULT ABO/RH(D) O NEG Antibody Screen Negative SPECIMEN EXPIRATION DATE ABO/RH TYPE AND SCREEN Emergency Department Course: Reviewed: I reviewed nursing notes, vitals, past medical history and Care Everywhere Assessments: 1846 I obtained history and examined the patient as noted above. Consults: 1933 I talked to GI about the patients symptoms and next steps. 1937 I talked to pharmacy about the patients medication administration. 1999 I talked to Layne Rossi PA-C for Dr Viveros about patients symptoms and admittance. 2117 I talked to Layne Rossi PA-C about the patients hypotension and episodes of vomiting. Interventions: 2031 sandoSatin 50mcg/hr 2033 Rocephin 2g IV 2034 Protonix 8mg/hr IV 2116 Zofran 4mg IV 2118 NS bolus 1 total L. 1 unit of blood. Disposition: The patient was admitted to the hospital under the care of Dr. Viveros. Impression & Plan Medical Decision Making: Pt presents with hematemesis, melena, anemia, and episodes of hypotension. Suspect blood loss anemiaas pt already received 1 unit of blood before arrival and hemoglobin is downtrending here. Pt received a total of 1L of IVF, 1 unit of blood. Also started on rocephin for SBP prophylaxis, and protonix and somatostatin for possibility of variceal bleed. Pt with soft BPs while in ED, though pt is asymptomatic. Discussed with hospitalist service several times - they will reassess after unit of blood is finished. Discussed with Gastroenterology - they're planning on endoscopy tomorrow. At time of admission, pt is slightly hypotensive but stable. Doubt hypotension is due to septic, obstructive, or cardiogenic shock. All of his questions were answered and he's in agreement with the plan. Critical care time: 40 minutes excluding procedures. Diagnosis: ICD-10-CM 1. UGI bleed K92.2 Scribe Disclosure: IErlin, am serving as a scribe at 6:35 PM on 10/08/2021 to document services personally performed by Florentino Ragsdale MD based on my observations and the provider's statements to me. Florentino Ragsdale MD 10/09/21 0159 documented in this encounter Miscellaneous Notes Plan of Care - Melanie Rodriguez RN - 10/11/2021 3:32 PM CDT Pertinent assessments: Patient A&O on RA and soft BP. Patient complaining of pain in left arm, scheduled Tylenol given with relief. Tolerating renal diet. Major Shift Events: Hemodialysis today Treatment Plan: Hemodialysis, pain management Plan of Care - Kaylee Trejo RN - 10/10/2021 2:50 PM CDT Goal Outcome Evaluation: End of Shift Summary For vital signs and complete assessments, please see documentation flowsheets. Pertinent assessments: A&Ox4. VSS. Fluctuating from RA-5L NC. At end of shift, 97% on 3LPM. GREY.Denies pain, SOB, N/V. Pt anuric. Bruit/thrill present with fistula. SBA/A1 with walker. Mild edema in BLE. Passing flatus. Renal diet. Major Shift Events: EGD completed this AM, back up to floor @ 1000. Tele discontinued - at beginningof shift was A-fib w/ BBB HR 66. Treatment Plan: PO Protonix. Monitor Hgb. Bleeding precautions. Hemodialysis. Continuous O2 monitoring. Potential discharge today or tomorrow. Kaylee Trejo RN Plan of Care - Eugene Sherman RN - 10/10/2021 4:31 AM CDT Goal Outcome Evaluation: Pertinent assessments: A&Ox4. BP low bolus given otherwise VSS, on RA. GREY. Denies pain, SOB, N/V. Pt anuric. Bruit/thrill present with fistula. SBA/A1 with walker. Mild edema in BLE. Passing flatus. On tele, he was afib at 70 with a BBB. Major Shift Events:uneventful Treatment Plan: Protonix and Octreotide drips. Monitor Hgb. EGD tomorrow 10/10. Tele. NPO @ midnight.Bleeding precautions. Hemodialysis. Bedside Nurse: eugene Mcelroy RN Plan of Care - Fredy Brian RN - 10/09/2021 10:31 PM CDT Pertinent assessments: A&Ox4. BP soft, otherwise VSS, on RA. GREY. Denies pain, SOB, N/V. Pt states no urine output. Bruit/thrill present with fistula. SBA/A1 with walker. Mild edema in BLE. Passingflatus. On tele, he was afib at 70 with a BBB. Major Shift Events:uneventful Treatment Plan: Protonix and Octreotide drips. Monitor Hgb. EGD tomorrow 10/10. Tele. NPO @ midnight.Bleeding precautions. Hemodialysis. Plan of Care - Kaylee Trejo RN - 10/09/2021 3:48 PM CDT Goal Outcome Evaluation: End of Shift Summary For vital signs and complete assessments, please see documentation flowsheets. Pertinent assessments: A&Ox4. BP soft, otherwise VSS, on RA. GREY. Denies pain, SOB, N/V. Pt states no urine output. Bruit/thrill present. SBA/A1 with walker. Mild edema in BLE. Passing flatus. Major Shift Events: Admitted to floor at 1400. Treatment Plan: Protonix and Octreotide drips. Monitor Hgb. EGD tomorrow 10/10. Tele. NPO @ midnight.Bleeding precautions. Hemodialysis. Kaylee Trejo, RN Pharmacy-Admission Medication History - Erlin Dodd, [facility] - 10/08/2021 10:14 PM CDT Admission medication history interview status for this patient is complete. See [facility] admission navigator for allergy information, prior to admission medications and immunization status. Medication history interview done, indicate source(s): Patient Medication history resources (including written lists, pill bottles, clinic record): Janice [facility] Pharmacy: [id number] - [place], [place] - [address] [facility] [place] [phone] Changes made to [facility] medication list: Added: ALL Actions taken by pharmacist (provider contacted, etc):None Additional medication history information:None Medication reconciliation/reorder completed by provider prior to medication history? No Prior to Admission medications Medication Sig Last Dose Taking? Auth Provider [facility] Date allopurinol (ZYLOPRIM) 100 MG tablet Take 100 mg by mouth daily 10/07/2021 at Unknown time Yes Unknown, Entered By History aspirin (ASA) 81 MG EC tablet Take 81 mg by mouth 10/07/2021 at PM Yes Unknown, Entered By History atorvastatin (LIPITOR) 20 MG tablet Take 20 mg by mouth daily 10/07/2021 at Unknown time Yes Unknown,Entered By History Yes fluticasone (FLONASE) 50 MCG/ACT nasal spray [place] 1 spray in nostril daily 10/07/2021 at Unknown time Yes Unknown, Entered By History fluticasone-salmeterol (ADVAIR HFA) 115-21 MCG/ACT inhaler Inhale 2 puffs into the lungs 2 times daily 10/07/2021 at Unknown time Yes Unknown, Entered By History Yes lidocaine-prilocaine (EMLA) 2.5-2.5 % external cream APPLY SMALL AMOUNT TO ACCESS SITE (AVF) 1 TO 2 HOURS BEFORE DIALYSIS. COVER WITH OCCLUSIVE DRESSING (SARAN WRAP) 10/08/2021 at Unknown time Yes Unknown, Entered By History Yes metoprolol succinate ER (TOPROL XL) 25 MG 24 hr tablet Take 0.5 tablets by mouth daily 10/07/2021 at Unknown time Yes Unknown, Entered By History Yes multivitamin RENAL (MULTIVITAMIN RENAL) 1 MG capsule Take 1 capsule by mouth 10/08/2021 at AM Yes Unknown, Entered By History sevelamer carbonate (RENVELA) 800 MG tablet Take 1 tablet by mouth 3 times daily (with meals) 10/07/2021 at Unknown time Yes Unknown, Entered By History documented in this encounter Plan of Treatment Not on filedocumented as of this encounter Procedures Procedure Name Priority Date/Time Associated Comments Diagnosis HEMODIALYSIS SINGLE TREATMENT Routine 10/11/2021 SETUP ([facility]) 4:33 PM CDT HEMODIALYSIS DIALYZER ([facility]) Routine 10/11/2021 2:28 PM CDT IP TERMINATION OF CRRT TREATMENT Routine 10/11/2021 2:28 PM CDT HEPATITIS B SURFACE ANTIGEN STAT 10/11/2021 Results for 7:46 AM CDT this procedure are in the results section. BASIC METABOLIC PANEL Routine 10/11/2021 Result s for 6:36 AM CDT this procedure are in the results section. CBC WITH PLATELETS Routine 10/11/2021 Results f or 6:36 AM CDT this procedure are in the results section. GLUCOSE BY METER Routine 10/10/2021 Results for 9:21 AM CDT this procedure are in the results section. SURGICAL PATHOLOGY EXAM Routine 10/10/2021 Resu lts for 8:58 AM CDT this procedure are in the results section. ESOPHAGOGASTRODUODENOSCOPY (EGD) 10/10/2021 Hemateme sis 8:40 AM CDT UPPER GI ENDOSCOPY Routine 10/10/2021 Results f or 8:18 AM CDT this procedure are in the results section. BASIC METABOLIC PANEL Routine 10/10/2021 Result s for 7:22 AM CDT this procedure are in the results section. CBC WITH PLATELETS Routine 10/10/2021 Results f or 7:22 AM CDT this procedure are in the results section. HEMOGLOBIN Routine 10/10/2021 Results for 2:15 AM CDT this procedure are in the results section. HEMOGLOBIN Timed 10/09/2021 Results for 10:02 PM CDT this procedure are in the results section. HEMOGLOBIN STAT 10/09/2021 Results for 1:48 PM CDT this procedure are in the results section. TRANSFUSE RED BLOOD CELLS (UNIT) STAT 10/09/2021 9:21 AM CDT BASIC METABOLIC PANEL STAT 10/09/2021 Result s for 9:12 AM CDT this procedure are in the results section. CBC WITH PLATELETS STAT 10/09/2021 Results f or 9:12 AM CDT this procedure are in the results section. PREPARE RED BLOOD CELLS (UNIT) STAT 10/09/2021 Results for 6:52 AM CDT this procedure are in the results section. EKG 12-LEAD, TRACING ONLY STAT 10/09/2021 Re sults for 12:52 AM CDT this procedure are in the results section. TRANSFUSE RED BLOOD CELLS (UNIT) STAT 10/09/2021 12:27 AM CDT PREPARE RED BLOOD CELLS (UNIT) STAT 10/08/2021 Results for 11:46 PM CDT this procedure are in the results section. HEMOGLOBIN STAT 10/08/2021 Results for 10:47 PM CDT this procedure are in the results section. GLUCOSE BY METER STAT 10/08/2021 Results for 9:00 PM CDT this procedure are in the results section. COVID-19 VIRUS (CORONAVIRUS) BY STAT 10/08/2021 Results for PCR 8:44 PM CDT this procedure are in the results section. INR STAT 10/08/2021 Results for 8:44 PM CDT this procedure are in the results section. EXTRA TUBE STAT 10/08/2021 Results for 7:02 PM CDT this procedure are in the results section. EXTRA RED TOP TUBE STAT 10/08/2021 Results f or 7:02 PM CDT this procedure are in the results section. CBC WITH PLATELETS AND STAT 10/08/2021 Resul ts for DIFFERENTIAL 7:02 PM CDT this procedure are in the results section. TYPE AND SCREEN, ADULT STAT 10/08/2021 Resul ts for 7:02 PM CDT this procedure are in the results section. CBC WITH PLATELETS & STAT 10/08/2021 Results for DIFFERENTIAL 7:02 PM CDT this procedure are in the results section. COMPREHENSIVE METABOLIC PANEL STAT 10/08/2021 Results for 7:02 PM CDT this procedure are in the results section. ABO/RH TYPE AND SCREEN STAT 10/08/2021 Resul ts for 7:02 PM CDT this procedure are in the results section. documented in this encounter Results Hepatitis B surface antigen (10/11/2021 7:46 AM CDT) [facility] Method Time Signature Hepatitis B Nonreactive Nonreactive 10/11/2021 [facility] Surface 4:30 PM CDT CORE/PROT/EN Antigen DO Specimen Anatomical Collection Method / Collection Time Recei annie Time (Source) Location / Volume Laterality Blood STRUCTURE OF RIGHT Venipuncture / 10/11/2021 7:46 07/2 07/2021 7:58 HAND / Unknown Unknown AM CDT AM CDT Terry Wolfe MD LAB - BLOOD ORDERABLES Performing Organization Address City/State/ZIP Code Phon e Number [facility] CORE/PROT/ENDO [facility] [place], [place] [address] Core/Prot/Endo [address] [facility] [address] Building, Room 3-580 (ABNORMAL) CBC with platelets (10/11/2021 6:36 AM CDT) [facility] Method Time Signature WBC Count 7.1 4.0 - 11.0 10/11/2021 [facility] 10e3/uL 6:47 AM CDT RBC Count 2.85 (L) 4.40 - 10/11/2021 [facility] 5.90 6:47 AM CDT 10e6/uL Hemoglobin 9.4 (L) 13.3 - 10/11/2021 [facility] 17.7 g/dL 6:47 AM CDT Hematocrit 31.2 (L) 40.0 - 10/11/2021 [facility] 53.0 % 6:47 AM CDT MCV 110 (H) 78 - 100 10/11/2021 [facility] fL 6:47 AM CDT MCH 33.0 26.5 - 10/11/2021 [facility] 33.0 pg 6:47 AM CDT MCHC 30.1 (L) 31.5 - 10/11/2021 [facility] 36.5 g/dL 6:47 AM CDT RDW 19.0 (H) 10.0 - 10/11/2021 [facility] 15.0 % 6:47 AM CDT Platelet Count 165 150 - 450 10/11/2021 [facility] 10e3/uL 6:47 AM CDT Specimen Anatomical Collection Method / Collection Time Recei annie Time (Source) Location / Volume Laterality Blood STRUCTURE OF RIGHT Venipuncture / 10/11/2021 6:36 07/2 07/2021 6:42 HAND / Unknown Unknown AM CDT AM CDT Dallin Farah DO LAB - BLOOD ORDERABLES Performing Organization Address City/State/ZIP Code Phon [place] [address] Care Lab [address] Lab (1st floor, no room number) (ABNORMAL) Basic metabolic panel (10/11/2021 6:36 AM CDT) [facility] Method Time Signature Sodium 134 133 - 144 10/11/2021 LABORATORY mmol/L 7:00 AM CDT Potassium 5.1 3.4 - 5.3 10/11/2021 LABORATORY mmol/L 7:00 AM CDT Chloride 100 94 - 109 10/11/2021 LABORATORY mmol/L 7:00 AM CDT Carbon Dioxide 23 20 - 32 10/11/2021 LABORATORY (CO2) mmol/L 7:00 AM CDT Anion Gap 11 3 - 14 10/11/2021 LABORATORY mmol/L 7:00 AM CDT Urea Nitrogen 60 (H) 7 - 30 10/11/2021 LABORATORY mg/dL 7:00 AM CDT Creatinine 5.77 (H) 0.66 - 10/11/2021 LABORATORY 1.25 mg/dL 7:00 AM CDT Calcium 8.2 (L) 8.5 - 10.1 10/11/2021 LABORATORY mg/dL 7:00 AM CDT Glucose 116 (H) 70 - 99 10/11/2021 LABORATORY mg/dL 7:00 AM CDT GFR Estimate 10 (L) >60 10/11/2021 LABORATORY mL/min/1.7 7:00 AM CDT 3m2 Comment: Effective March 09, 2021 eGF Rcr in adults is calculated using the 2020 CKD-EPI creatinine equation which includ es age and gender (Brigette et al., NEJM, DOI: 10.1056/SMCDxm3466029) Specimen Anatomical Collection Method / Collection Time Recei annie Time (Source) Location / Volume Laterality Blood STRUCTURE OF RIGHT Venipuncture / 10/11/2021 6:36 2 07/2021 6:42 HAND / Unknown Unknown AM CDT AM CDT Dallin Farah DO LAB - BLOOD ORDERABLES Performing Organization Address City/State/ZIP Code Phon [place] [address] Care Lab [address] Lab (1st floor, no room number) (ABNORMAL) Glucose by meter (10/10/2021 9:21 AM CDT) P athologist Signature GLUCOSE BY 126 (H) 70 - 99 10/10/2021 LABORATORY METER POCT mg/dL 9:27 AM CDT POC Specimen (Source) Anatomical Collection Method Collection Time Re ceived Time Location / / Volume Laterality Blood, Capillary BLOOD SPECIMEN / 10/10/2021 9:21 09/18 9:27 Unknown AM CDT AM CDT Rhys Duarte MD LAB - BEAKER POCT Performing Organization Address City/[facility]/ZIP Code Phon e Number [place] [address] Care Lab [address] Lab (1st floor, no room number) Surgical Pathology Exam (10/10/2021 8:58 AM CDT) Component Value Ref Test Analysis Performed Pathologis t Range Method Time At Signature Case Report Surgical Pathology Report ? Case: [id number] ? Authorizing Provider: ??Carb allo, Joce ? Collected: ? 10/10/2021 08:58 AM ? 2 8:22 AM LABORA TORY ? MD Edgard ? CDT [facility] Received: ?10/10/2021 09:42 AM ? Main OR ? Pathologist: ? Antony Cameron MD PhD ? Specimens: ?? A) - Small Int estine, Duodenum, Duodenal Bulb ? B) - Stom ach ? Final A(1). Duodenum, biopsy: RH Electronically Diagnosis -Small intestinal mucosa wit h no significant histopathologic abnormalities. 2 8:22 AM LABORATORY signed by -Normal villous architecture identified and no prominence in intraepithelial lymphocytes seen. CDT Evans Cameron met -Negative for luminal organisms. MD Allyn PhD on -Negative for dysplasia or malignancy. 10/13/2021 at 8:22 AM B(2). Stomach, biopsy: -Erosive, focally active oxy ntic type gastric mucosa with reactive epithelial changes. -Negative for H. Pylori organisms on immunohistochemical sta ins. - Negative for intestinal metaplasia. -Negative for dysplasia or malignancy Clinical Procedure: Information ESOPHAGOGASTRODUODENOSCOPY biopsies 2 8:22 AM LABORATORY Pre-op Diagnosis: Hematemesis [K92.0] CD T Post-op Diagnosis: K92.0 - Hematemesis [ICD-10-CM] Gross A(1). Small Intestine, Duodenum, Duodenal Bulb: Description The specimen is received in formalin, labeled with the patient's name, medical record number and other identifying information designated duodenum bulb biopsy. It consists of 3 puentes tissue fragments ra 2 8:22 AM LABORATORY nging from 0.1 to 0.2 cm. The specimens are enti rely submitted in 1 cassette. CDT B(2). Stomach, : The specimen is received in formalin, labeled with the patient's name, medical record number and other identifying information designated gastric biopsy. It consists of 3 puentes tissue fragments ranging from 0.1 to 0.3 cm. The specimen is entirely submitted in 1 cassette. (MARIO Saldaña [facility]) Microscopic Microscopic examination Description was performed. 2 8:22 AM LABORATORY CDT Special -Negative for H. Pylori orga nisms on immunohistochemical stains. All controls stain appropriately. RH Stains 2 8:22 AM LABORATORY CDT Performing The technical component Labs of this testing was 2 8:22 AM LABORATORY completed at [facility] Case Images 2 8:22 AM LABORATORY CDT Specimen (Source) Anatomical Collection Method Collection Time Re ceived Time Location / / Volume Laterality Biopsy DUODENAL 10/10/2021 8:58 10/10/2021 9 :42 STRUCTURE / AM CDT AM CDT Unknown Specimen from STOMACH STRUCTURE 10/10/2021 8:59 2021 9:42 unspecified body / Unknown AM CDT AM CDT site obtained by biopsy (specimen) Joce COLEY Performing Organization Address City/State/ZIP Code [place] [address] Care Lab [address] [facility] Lab (1st floor, no room number) UPPER GI ENDOSCOPY (10/10/2021 8:18 AM CDT) Component Value Ref Test Analysis Performed At [facility] Range Method Time Signature [facility] RADIOLOGY Endoscopy RESULTS Patient Name: Jonatan Mejia ? Procedure Date: 09/18 8:18 AM ? Account Num flako: [id number] Date of : 1945 ?Admit Type: Inp atient Age: 76 ? Gender: Male Attending MD: JOCE ZAMUDIO MD Total Sedation Time: See anesthesia report Instrument Name: 205 - Gastroscope ? Procedure: ?Upper GI endoscopy Indications: ?Hematemesis Providers: ?JOCE ZAMUDIO MD (Doctor) Referring MD: ? Medicines: ?Monitored Anesthesia Care Complications: ?No immediate complications. Procedure: ?Pre-Anesthesia Assessment: ?- Prior to the procedure, a History and Physical ?was performed, and patient medications and ?allergies were reviewed. The patient is competent. ?The risks and benefits of the procedure and the ?sedation options and risks were discussed with the ?patient. All questions were answered and informed ?consent was obtained. Patient identification and ?proposed procedure were verified by the physician ?and the nurse in the pre-procedure area. Mental ?Status Examination: alert but confused. Airway ?Examination: see anesthesia note. Respiratory ?Examination: clear to auscultation. CV Examination: ?normal. ASA Grade Assessment: See anesth note. ?After reviewing the risks and benefits, the patient ?was deemed in satisfactory condition to undergo the ?procedure. The anesthesia plan was to use monitored ?anesthesia care (MAC). Immediately prior to ?administration of medications, the patient was ?re-assessed for adequacy to receive sedatives. The ?heart rate, respiratory rate, oxygen saturations, ?blood pressure, adequacy of pulmonary ventilation, ?and response to care were monitored throughout the ?procedure. The physical status of the patient was ?re-assessed after the procedure. ?- Immediately prior to administration of ?medications, the patient was re-assessed for ?adequacy to receive s edatives. ?After obtaining informed consent, the endoscope was ?passed under direct vision. Throughout the ?procedure, the patient's blood pressure, pulse, and ?oxygen saturations were monitored continuously.The ?upper GI endoscopy was accomplished without ?difficulty. The upper GI endoscopy was accomplished ?without difficulty. The Olympus Gastroscope, Model ?# GIF-H190, [place] # 205, SN #[id number] was ?introduced through the mouth, and advanced to the ?second part of duoden um. ? Findings: ? The second portion of the duodenum was normal. ? Diffuse moderately erythematous m ucosa without active bleeding and with ? no stigmata of bleeding was found in the duoden al bulb. Biopsies were ? taken with a cold forceps for histology. Estimated blood loss: none. ? Diffuse moderately erythematous m ucosa with stigmata of recent bleeding ? was found in the gastric body and in the gastric antrum. Biopsies were ? taken with a cold forceps for histology. Estimated blood loss: none. ? The cardia and gastric fundus were normal on retrofle xion. ? The Z-line was irregular and was found 40 cm from the incisors. ? The examined esophagus was normal. ? Impression: ? - Normal second portion of the duodenum. ?- Erythem atous duodenopathy. Biopsied. ?- Erythematous mucosa in the gastric body and ?antrum. Biopsied. ?- Z-line irregular, 40 cm from the incisors. ?- Normal esophagus. Recommendation: ? - [facility]. ?- Pantoprazole 40 mg once daily. ?- Add Carafate 1 gram BID. ?- NO ASA / NSAIDS jessica g term. ?- Await pathology. ?- Diet as tolerated. ?- Page out for hospit al team. ?- Will follow. ? JOCE ZAMUDIO MD 10/10/2021 8:24:36 AM I was physically present for the entire viewing portion of t he exam. JOCE ZAMUDIO MD Number of Addenda: 0 Note Initiated On: 10/10/2021 8:18 AM MRN: ?[id number] Procedure Date: ? 10/10/2021 8:18:14 AM Total Procedure Duration: 0 hours 5 minutes 10 seconds Estimated Blood Loss: ? Scope In: 8:56:46 AM Scope Out: 9:01:56 AM Specimen (Source) Anatomical Collection Method Collection Time Re ceived Time Location / / Volume Laterality 10/10/2021 8:18 AM CDT Joce Zamudio MD PROCEDURES Performing Organization Address City/State/ZIP Code Phon e Number RADIOLOGY RESULTS (ABNORMAL) CBC with platelets (10/10/2021 7:22 AM CDT) [facility] Method Time Signature WBC Count 7.2 4.0 - 11.0 10/10/2021 [facility] 10e3/uL 7:39 AM CDT RBC Count 2.89 (L) 4.40 - 10/10/2021 [facility] 5.90 7:39 AM CDT 10e6/uL Hemoglobin 9.7 (L) 13.3 - 10/10/2021 [facility] 17.7 g/dL 7:39 AM CDT Hematocrit 31.5 (L) 40.0 - 10/10/2021 [facility] 53.0 % 7:39 AM CDT MCV 109 (H) 78 - 100 10/10/2021 [facility] fL 7:39 AM CDT MCH 33.6 (H) 26.5 - 10/10/2021 [facility] 33.0 pg 7:39 AM CDT MCHC 30.8 (L) 31.5 - 10/10/2021 [facility] 36.5 g/dL 7:39 AM CDT RDW 19.9 (H) 10.0 - 10/10/2021 [facility] 15.0 % 7:39 AM CDT Platelet Count 173 150 - 450 10/10/2021 [facility] 10e3/uL 7:39 AM CDT Specimen Anatomical Collection Method / Collection Time Recei annie Time (Source) Location / Volume Laterality Blood STRUCTURE OF RIGHT Venipuncture / 10/10/2021 7:22 07/2 06/2021 7:31 UPPER LIMB / Unknown AM CDT AM CDT Unknown Dallin Farah DO LAB - BLOOD ORDERABLES Performing Organization Address City/State/ZIP Code Phon [place] [address] Care Lab [address] Lab (1st floor, no room number) (ABNORMAL) Basic metabolic panel (10/10/2021 7:22 AM CDT) [facility] Method Time Signature Sodium 132 (L) 133 - 144 10/10/2021 LABORATORY mmol/L 7:54 AM CDT Potassium 5.1 3.4 - 5.3 10/10/2021 LABORATORY mmol/L 7:54 AM CDT Chloride 100 94 - 109 10/10/2021 [facility] mmol/L 7:54 AM CDT Carbon Dioxide 25 20 - 32 10/10/2021 LABORATORY (CO2) mmol/L 7:54 AM CDT Anion Gap 7 3 - 14 10/10/2021 [facility] mmol/L 7:54 AM CDT Urea Nitrogen 49 (H) 7 - 30 10/10/2021 [facility] mg/dL 7:54 AM CDT Creatinine 4.60 (H) 0.66 - 10/10/2021 LABORATORY 1.25 mg/dL 7:54 AM CDT Calcium 8.9 8.5 - 10.1 10/10/2021 LABORATORY mg/dL 7:54 AM CDT Glucose 117 (H) 70 - 99 10/10/2021 LABORATORY mg/dL 7:54 AM CDT GFR Estimate 13 (L) >60 10/10/2021 LABORATORY mL/min/1.7 7:54 AM CDT 3m2 Comment: Effective March 09, 2021 eGF Rcr in adults is calculated using the 2020 CKD-EPI creatinine equation which includ es age and gender (Brigette et al., NEJM, DOI: 10.1056/MCEFeh2685528) Specimen Anatomical Collection Method / Collection Time Recei annie Time (Source) Location / Volume Laterality Blood STRUCTURE OF RIGHT Venipuncture / 10/10/2021 7:22 07/2 06/2021 7:31 UPPER LIMB / Unknown AM CDT AM CDT Unknown Dallin Farah DO LAB - BLOOD ORDERABLES Performing Organization Address City/State/ZIP Code [place] [address] Care Lab [address] Lab (1st floor, no room number) (ABNORMAL) Hemoglobin (10/10/2021 2:15 AM CDT) P athologist Signature Hemoglobin 9.2 (L) 13.3 - 17.7 10/10/2021 [facility] g/dL 2:39 AM CDT Specimen Anatomical Collection Method / Collection Time Recei annie Time (Source) Location / Volume Laterality Blood STRUCTURE OF RIGHT Venipuncture / 10/10/2021 2:15 07/2 06/2021 2:32 HAND / Unknown Unknown AM CDT AM CDT Christie Roldan MD LAB - BLOOD ORDERABLES Performing Organization Address City/[facility]/ZIP [place] [address] Care Lab [address] Lab (1st floor, no room number) (ABNORMAL) Hemoglobin (10/09/2021 10:02 PM CDT) P athologist Signature Hemoglobin 10.3 (L) 13.3 - 17.7 10/09/2021 [facility] g/dL 10:45 PM CDT Specimen Anatomical Collection Method / Collection Time Recei annie Time (Source) Location / Volume Laterality Blood STRUCTURE OF RIGHT Venipuncture / 10/09/2021 10:02 WRIST / Unknown Unknown PM CDT 10:16 PM CDT Dallin Farah DO LAB - BLOOD ORDERABLES Performing Organization Address City/[facility]/ZIP [place] [address] Care Lab [address] Lab (1st floor, no room number) (ABNORMAL) Hemoglobin (10/09/2021 1:48 PM CDT) P athologist Signature Hemoglobin 9.7 (L) 13.3 - 17.7 10/09/2021 [facility] g/dL 2:09 PM CDT Specimen Anatomical Collection Method / Collection Time Recei annie Time (Source) Location / Volume Laterality Blood STRUCTURE OF RIGHT Venipuncture / 10/09/2021 1:48 07/2 05/2021 2:05 HAND / Unknown Unknown PM CDT PM CDT Dallin Farah DO LAB - BLOOD ORDERABLES Performing Organization Address City/[facility]/ZIP [place] [address] Care Lab [address] Lab (1st floor, no room number) Transfuse red blood cells (unit) No special requirements (10/09/2021 11:51 AM CDT) Dallin Simons MD BLOOD TRANSFUSION ORDERABLES Transfuse red blood cells (unit), 1 Units No special requirements (10/09/2021 11:51 AM CDT) Dallin Simons MD BLOOD TRANSFUSION ORDERABLES (ABNORMAL) CBC with platelets (10/09/2021 9:12 AM CDT) [facility] gist Method Time Signature WBC Count 7.2 4.0 - 11.0 10/09/2021 [facility]AT[facility] 10e3/uL 9:39 AM CDT RBC Count 2.57 (L) 4.40 - 10/09/2021 [facility] 5.90 9:39 AM CDT 10e6/uL Hemoglobin 8.5 (L) 13.3 - 10/09/2021 [facility] 17.7 g/dL 9:39 AM CDT Hematocrit 28.4 (L) 40.0 - 10/09/2021 [facility] 53.0 % 9:39 AM CDT MCV 111 (H) 78 - 100 10/09/2021 [facility] fL 9:39 AM CDT MCH 33.1 (H) 26.5 - 10/09/2021 [facility] 33.0 pg 9:39 AM CDT MCHC 29.9 (L) 31.5 - 10/09/2021 [facility] 36.5 g/dL 9:39 AM CDT RDW 20.3 (H) 10.0 - 10/09/2021 [facility] 15.0 % 9:39 AM CDT Platelet Count 157 150 - 450 10/09/2021 [facility] 10e3/uL 9:39 AM CDT Specimen Anatomical Collection Method / Collection Time Recei annie Time (Source) Location / Volume Laterality Blood STRUCTURE OF RIGHT Venipuncture / 10/09/2021 9:12 07/05/2021 9:34 HAND / Unknown Unknown AM CDT AM CDT Layne Rossi PA-C LAB - BLOOD ORDERABLES Performing Organization Address City/State/ZIP Code Phon [place] [address] Care Lab [address] Lab (1st floor, no room number) (ABNORMAL) Basic metabolic panel (10/09/2021 9:12 AM CDT) [facility] Method Time Signature Sodium 134 133 - 144 10/09/2021 LABORATORY mmol/L 9:56 AM CDT Potassium 4.8 3.4 - 5.3 10/09/2021 [facility] mmol/L 9:56 AM CDT Chloride 100 94 - 109 10/09/2021 [facility] mmol/L 9:56 AM CDT Carbon Dioxide 28 20 - 32 10/09/2021 LABORATORY (CO2) mmol/L 9:56 AM CDT Anion Gap 6 3 - 14 10/09/2021 [facility] mmol/L 9:56 AM CDT Urea Nitrogen 42 (H) 7 - 30 10/09/2021 LABORATORY mg/dL 9:56 AM CDT Creatinine 3.52 (H) 0.66 - 10/09/2021 [facility] 1.25 mg/dL 9:56 AM CDT Calcium 8.7 8.5 - 10.1 10/09/2021 [facility] mg/dL 9:56 AM CDT Glucose 98 70 - 99 10/09/2021 [facility] mg/dL 9:56 AM CDT GFR Estimate 17 (L) >60 10/09/2021 LABORATORY mL/min/1.7 9:56 AM CDT 3m2 Comment: Effective March 09, 2021 eGF Rcr in adults is calculated using the 2020 CKD-EPI creatinine equation which includ es age and gender (Brigette et al., NEJM, DOI: 10.1056/YDVZrf1147651) Specimen Anatomical Collection Method / Collection Time Recei annie Time (Source) Location / Volume Laterality Blood STRUCTURE OF RIGHT Venipuncture / 10/09/2021 9:12 07/2 05/2021 9:34 HAND / Unknown Unknown AM CDT AM CDT Layne Rossi PA-C LAB - BLOOD ORDERABLES Performing Organization Address City/State/ZIP Code Phon [place] [address] Care Lab [address] Lab (1st floor, no room number) Prepare red blood cells (unit) (10/09/2021 6:52 AM CDT) [facility] Method Time Signature CROSSMATCH Compatible RH BLOOD BANK UNIT ABO/RH O Neg RH BLOOD BANK Unit Number [id number] RH BLOOD BANK Unit Status Transfused RH BLOOD BANK Blood Red Blood Cells RH BLOOD Component Type BANK Product Code [id number] RH BLOOD BANK CODING SYSTEM [id number] RH BLOOD BANK UNIT TYPE ISBT 9500 RH BLOOD BANK ISSUE DATE AND [id number] RH BLOOD TIME BANK Specimen (Source) Anatomical Collection Method Collection Time Re ceived Time Location / / Volume Laterality 10/09/2021 6:52 AM CDT Dallin Simons MD BLOOD BANK PRODUCT ORDERABLE S Performing Organization Address City/State/ZIP Code Phon e Number RH BLOOD BANK [address] [place] [address] Transfuse red blood cells (unit) No special requirements (10/09/2021 2:38 AM CDT) Layne Ray Rossi PA-C BLOOD TRANSFUSION ORDERABLES Transfuse red blood cells (unit), 1 Units No special requirements (10/09/2021 2:38 AM CDT) Layne Ray Rossi PA-C BLOOD TRANSFUSION ORDERABLES EKG 12-lead, tracing only (10/09/2021 12:52 AM CDT) Component Value Ref Range Test Analysis Performed Patholog t Method Time At Signature Systolic Blood mmHg RADIOLOGY Pressure RESULTS Diastolic Blood mmHg RADIOLOGY Pressure RESULTS Ventricular Rate 70 BPM RADIOLOGY RESULTS Atrial Rate 39 BPM RADIOLOGY RESULTS ND Interval ms RADIOLOGY RESULTS QRS Duration 126 ms RADIOLOGY RESULTS QT 442 ms RADIOLOGY RESULTS QTc 477 ms RADIOLOGY RESULTS P [place] degrees RADIOLOGY RESULTS R AXIS 107 degrees RADIOLOGY RESULTS T [place] 33 degrees RADIOLOGY RESULTS Interpretation Atrial fibrillation RADIO LOGY ECG Right bundle branch block RESU LTS Abnormal ECG No previous ECGs available Confirmed by - EMERGENCY [place] PHYSICIAN ([id number]), editorial intern ANDRÉS HATCH ([id number]) on 10/11/2021 6:42:29 AM Specimen Anatomical Collection Method Collection Time Receive d Time (Source) Location / / Volume Laterality 10/09/2021 12:52 10/11/2021 6:42 AM CDT AM CDT Layne Ray Rossi PA-C ECG ORDERABLES Performing Organization Address City/State/ZIP Code Phon e Number RADIOLOGY RESULTS Prepare red blood cells (unit) (10/08/2021 11:46 PM CDT) [facility] gist Method Time Signature CROSSMATCH Compatible RH BLOOD BANK UNIT ABO/RH O Neg RH BLOOD BANK Unit Number [id number] RH BLOOD BANK Unit Status Transfused RH BLOOD BANK Blood Red Blood Cells RH BLOOD Component Type BANK Product Code [id number] RH BLOOD BANK CODING SYSTEM [id number] RH BLOOD BANK UNIT TYPE ISBT 9500 RH BLOOD BANK ISSUE DATE AND [id number] RH BLOOD TIME BANK Specimen (Source) Anatomical Collection Method Collection Time Re ceived Time Location / / Volume Laterality 10/08/2021 11:46 PM CDT Layne Rossi PA-C BLOOD BANK PRODUCT ORDERABLE S Performing Organization Address City/State/ZIP Code Phon e Number RH BLOOD BANK [address] [place] [address] (ABNORMAL) Hemoglobin (10/08/2021 10:47 PM CDT) athologist Signature Hemoglobin 7.7 (L) 13.3 - 17.7 10/08/2021 RH LABORATORY g/dL 11:15 PM CDT Specimen Anatomical Collection Method / Collection Time Recei annie Time (Source) Location / Volume Laterality Blood STRUCTURE OF RIGHT Venipuncture / 10/08/2021 10:47 UPPER LIMB / Unknown PM CDT 11:11 PM CDT Unknown Florentino Ragsdale MD LAB - BLOOD ORDERABLES Performing Organization Address City/State/ZIP Code Phon [place] [address] Care Lab [address] [facility] Lab (1st floor, no room number) (ABNORMAL) Glucose by meter (10/08/2021 9:00 PM CDT) athologist Signature GLUCOSE BY 104 (H) 70 - 99 10/08/2021 [facility] LABORATORY METER POCT mg/dL 9:07 PM CDT POC Specimen (Source) Anatomical Collection Method Collection Time Re ceived Time Location / / Volume Laterality Blood, Capillary BLOOD SPECIMEN / 10/08/2021 9:00 07/2 04/2021 9:07 Unknown PM CDT PM CDT Florentino Ragsdale MD LAB - BEAKER POCT Performing Organization Address City/[facility]/ZIP Code Phon e [place] [address] Care Lab [address] Lab (1st floor, no room number) Asymptomatic COVID-19 Virus (Coronavirus) by PCR Nasopharyngeal (10/08/2021 8:44 PM CDT) Analysis Performed At Patho logist Time Signature SARS CoV2 PCR Negative Negative 10/08/2021 LABORATORY 9:57 PM CDT Comment: NEGATIVE: SARS-CoV-2 (COVID-19) RNA not detected, presumed negative. Specimen Anatomical Location / Collection Method Collection Ruslan e Received Time (Source) Laterality / Volume Swab NASOPHARYNGEAL Non-blood 10/08/2021 8:44 10/08/2021 9:10 STRUCTURE / Unknown Collection / PM CDT PM CDT Unknown Narrative LABORATORY - 10/08/2021 9:57 PM CDT Testing was performed using the Xpert Xpress SARS-CoV-2 Assay on the [employer]. A dditional information about this Emergency Use Authorization (EUA) a ssay can be found via the Lab Guide. This test should be ordered for t he detection of SARS-CoV-2 in individuals who meet SARS-CoV-2 clinical and/or epidemiological criteria. Test performance is unknown in asymptomatic patients. This test is for in vitro diagnostic use unde r the FDA EUA for laboratories certified under CLIA to per form high complexity testing. This test has not been FDA cleared or ap proved. A negative result does not rule out the presence of PCR in hibitors in the specimen or target RNA in concentration below the li dionne of detection for the assay. The possibility of a false negati ve should be considered if the patient's recent exposure or clinica l presentation suggests COVID-19. This test was validated by the [facility]. This laboratory is certified under the Clinical Laboratory Improvement Amendments of 1988 (CLIA-88) as qualified to perform high complexity laboratory testing. Florentino Ragsdale MD LAB - MICRO GENERAL ORDERABL ES Performing Organization Address City/[facility]/ZIP Code [place] [address] Care [facility] [address] Lab (1st floor, no room number) (ABNORMAL) INR (10/08/2021 8:44 PM CDT) P athologist Signature INR 1.34 (H) 0.85 - 1.15 10/08/2021 [facility] 9:55 PM CDT Specimen Anatomical Collection Method / Collection Time Recei annie Time (Source) Location / Volume Laterality Blood STRUCTURE OF RIGHT Venipuncture / 10/08/2021 8:44 07/2 04/2021 9:41 UPPER LIMB / Unknown PM CDT PM CDT Unknown Florentino Ragsdale MD LAB - BLOOD ORDERABLES Performing Organization Address City/State/ZIP Code [place] [address] Care [facility] [address] Lab (1st floor, no room number) Extra Red Top Tube (10/08/2021 7:02 PM CDT) P athologist Signature Hold Specimen JIC 10/08/2021 [facility] 8:18 PM CDT Specimen Anatomical Collection Method / Collection Time Recei annie Time (Source) Location / Volume Laterality Blood STRUCTURE OF RIGHT Venipuncture / 10/08/2021 7:02 /04/2021 7:10 UPPER LIMB / Unknown PM CDT PM CDT Unknown Florentino Ragsdale MD LAB - BLOOD ORDERABLES Performing Organization Address City/State/ZIP Code [place] [address] Care [facility] [address] Lab (1st floor, no room number) (ABNORMAL) CBC with platelets and differential (10/08/2021 7:02 PM CDT) Patholo gist Method Time Signature WBC Count 7.1 4.0 - 10/08/2021 [facility] 11.0 7:15 PM CDT 10e3/uL RBC Count 2.37 (L) 4.40 - 10/08/2021 [facility] 5.90 7:15 PM CDT 10e6/uL Hemoglobin 8.1 (L) 13.3 - 10/08/2021 [facility] 17.7 g/dL 7:15 PM CDT Hematocrit 26.1 (L) 40.0 - 10/08/2021 [facility] 53.0 % 7:15 PM CDT MCV 110 (H) 78 - 100 10/08/2021 [facility] fL 7:15 PM CDT MCH 34.2 (H) 26.5 - 10/08/2021 [facility] 33.0 pg 7:15 PM CDT MCHC 31.0 (L) 31.5 - 10/08/2021 [facility] 36.5 g/dL 7:15 PM CDT RDW 18.6 (H) 10.0 - 10/08/2021 [facility] 15.0 % 7:15 PM CDT Platelet Count 161 150 - 450 10/08/2021 [facility] 10e3/uL 7:15 PM CDT % Neutrophils 81 % 10/08/2021 [facility] 7:15 PM CDT % Lymphocytes 7 % 10/08/2021 [facility] 7:15 PM CDT % Monocytes 11 % 10/08/2021 [facility] 7:15 PM CDT % Eosinophils 1 % 10/08/2021 [facility] 7:15 PM CDT % Basophils 0 % 10/08/2021 [facility] 7:15 PM CDT % Immature 0 % 10/08/2021 [facility] Granulocytes 7:15 PM CDT NRBCs per 100 0 <1 /100 10/08/2021 [facility] WBC 7:15 PM CDT Absolute 5.7 1.6 - 8.3 10/08/2021 [facility] Neutrophils 10e3/uL 7:15 PM CDT Absolute 0.5 (L) 0.8 - 5.3 10/08/2021 [facility] Lymphocytes 10e3/uL 7:15 PM CDT Absolute 0.8 0.0 - 1.3 10/08/2021 [facility] Monocytes 10e3/uL 7:15 PM CDT Absolute 0.0 0.0 - 0.7 10/08/2021 [facility] Eosinophils 10e3/uL 7:15 PM CDT Absolute 0.0 0.0 - 0.2 10/08/2021 [facility] Basophils 10e3/uL 7:15 PM CDT Absolute 0.0 <=0.4 10/08/2021 [facility] Immature 10e3/uL 7:15 PM CDT Granulocytes Absolute NRBCs 0.0 10e3/uL 10/08/2021 [facility] 7:15 PM CDT Specimen Anatomical Collection Method / Collection Time Recei annie Time (Source) Location / Volume Laterality Blood STRUCTURE OF RIGHT Venipuncture / 10/08/2021 7:02 /04/2021 7:10 UPPER LIMB / Unknown PM CDT PM CDT Unknown Florentino Ragsdale MD LAB - BLOOD ORDERABLES Performing Organization Address City/State/ZIP Code Phon [place] [address] [facility] [address] [facility] Lab (1st floor, no room number) Adult Type and Screen (10/08/2021 7:02 PM CDT) [facility] Method Time Signature ABO/RH(D) O NEG 10/08/2021 [facility] BLOOD 6:39 PM CDT BANK Antibody Negative Negative 10/08/2021 [facility] BLOOD Screen 6:39 PM CDT BANK SPECIMEN [id number] 10/08/2021 [facility] BLOOD EXPIRATION 6:39 PM CDT BANK DATE Specimen Anatomical Collection Method / Collection Time Recei annie Time (Source) Location / Volume Laterality Blood STRUCTURE OF RIGHT Venipuncture / 10/08/2021 7:02 09/18 7:10 UPPER LIMB / Unknown PM CDT PM CDT Unknown Florentino Ragsdale MD LAB - BLOOD BANK TEST ORDER Performing Organization Address [facility]/ZIP Code Phon e Number [facility] BLOOD BANK [address] [place] [address] (ABNORMAL) Comprehensive metabolic panel (10/08/2021 7:02 PM CDT) [facility] Method Time Signature Sodium 136 133 - 144 10/08/2021 [facility] mmol/L 7:39 PM CDT Potassium 3.9 3.4 - 5.3 10/08/2021 [facility] mmol/L 7:39 PM CDT Chloride 100 94 - 109 10/08/2021 [facility] mmol/L 7:39 PM CDT Carbon Dioxide 30 20 - 32 10/08/2021 [facility] (CO2) mmol/L 7:39 PM CDT Anion Gap 6 3 - 14 10/08/2021 LABORATORY mmol/L 7:39 PM CDT Urea Nitrogen 36 (H) 7 - 30 10/08/2021 LABORATORY mg/dL 7:39 PM CDT Creatinine 2.80 (H) 0.66 - 10/08/2021 [facility] 1.25 7:39 PM CDT mg/dL Calcium 8.8 8.5 - 10/08/2021 LABORATORY 10.1 7:39 PM CDT mg/dL Glucose 115 (H) 70 - 99 10/08/2021 LABORATORY mg/dL 7:39 PM CDT Alkaline 116 40 - 150 10/08/2021 LABORATORY Phosphatase U/L 7:39 PM CDT AST 15 0 - 45 10/08/2021 LABORATORY U/L 7:39 PM CDT ALT 16 0 - 70 10/08/2021 LABORATORY U/L 7:39 PM CDT Protein Total 6.9 6.8 - 8.8 10/08/2021 LABORATORY g/dL 7:39 PM CDT Albumin 2.9 (L) 3.4 - 5.0 10/08/2021 [facility] g/dL 7:39 PM CDT Bilirubin Total 0.8 0.2 - 1.3 10/08/2021 LABORATORY mg/dL 7:39 PM CDT GFR Estimate 23 (L) >60 10/08/2021 LABORATORY mL/min/1. 7:39 PM CDT 73m2 Comment: Effective March 09, 2021 eGF Rcr in adults is calculated using the 2020 CKD-EPI creatinine equation which includ es age and gender (Brigette et al., NEJM, DOI: 10.1056/GLATmk9761803) Specimen Anatomical Collection Method / Collection Time Recei annie Time (Source) Location / Volume Laterality Blood STRUCTURE OF RIGHT Venipuncture / 10/08/2021 7:02 09/18 7:10 UPPER LIMB / Unknown PM CDT PM CDT Unknown Florentino Ragsdale MD LAB - BLOOD ORDERABLES Performing Organization Address City/State/ZIP Code [place] [phone] Care Lab [address] [facility] Lab (1st floor, no room number) documented in this encounter Visit Diagnoses Diagnosis UGI bleed Hemorrhage of gastrointestinal tract, un specified documented in this encounter Admitting Diagnoses Diagnosis UGI bleed Hemorrhage of gastrointestinal tract, un specified documented in this encounter Administered Medications Inactive Administered Medications - up to 3 most recent administrations Medication Order MAR Action Action Date Dose Rate Site 0.9% sodium chloride BOLUS New Bag 10/10/2021 12:36 AM CDT 500 mLs 500 mL/hr Intravenous, 500 mL, ONCE, at 500 mL/hr, Administer over 1 Hours, On Mon10/10/21 at 0030, For 1 dose 0.9% sodium chloride BOLUS New Bag 10/11/2021 3:29 PM CDT 250 mLs Intravenous, 250 mL, ONCE IN DIALYSIS/CRRT, On Mon10/11/21 at 1430, For 1 dose, For patient prime during dialysis, Dialysis 0.9% sodium chloride BOLUS New Bag 10/11/2021 3:29 PM CDT 300 mLs Hemodialysis Machine, 300 mL, ONCE, On Mon10/11/21 at 1430, For 1 dose, For Dialyzer Prime. (In Dialyzer), Dialysis acetaminophen (TYLENOL) tablet 975 mg Given 10/11/2021 11:26 AM CDT 975 mg 975 mg, Oral, EVERY 8 HOURS, First dose on 10/09/21 at 0700, Maximum acetaminophen dose from all sources = 75 mg/kg/day not to exceed 4 grams/day. Given 10/09/2021 6:31 AM CDT 975 mg allopurinol (ZYLOPRIM) tablet 100 mg Given 10/11/2021 8:16 AM CDT 100 mg 100 mg, Oral, DAILY, First dose on 10/09/21 at 0800 Given 10/10/2021 12:08 PM CDT 100 mg Given 10/09/2021 9:40 AM CDT 100 mg atorvastatin (LIPITOR) tablet 20 mg Given 10/11/2021 8:16 AM CDT 20 mg 20 mg, Oral, DAILY, First dose on 10/09/21 at 0800 Given 10/10/2021 12:08 PM CDT 20 mg Given 10/09/2021 9:40 AM CDT 20 mg cefTRIAXone (ROCEPHIN) 2 g vial to attach to [facility] Bag 8:34 PM CDT 2 g NS 100 ml bag for ADULTS or NS 50 ml bag for PEDS STAT, 2 g, Intravenous, ONCE, On Mon10/08/21 at 1940, For 1 dose, Indications: UGI bleed, SBI prophylaxis epoetin tee-epbx (RETACRIT) injection Given 10/11/2021 3:30 PM CDT 4,000 Units 4,000 Units 4,000 Units, Intravenous, ONCE, On Mon10/11/21 at 1430, For 1 dose, Give during dialysis., Dialysis fluticasone-vilanterol (BREO ELLIPTA) 100-25 Given 7:59 AM CDT 1 puff MCG/INH inhaler 1 puff 1 puff, Inhalation, DAILY, First dose on Mon10/09/21 at 0800, This therapy was substituted for fluticasone salmeterol (HFA) 115/21 mcg inhaler 1-2 puffs Daily or BID. Check the dose counter on the inhaler to ensure there are doses remaining before administering. Given 10/10/2021 12:13 PM CDT 1 puff Given 10/09/2021 9:39 AM CDT 1 puff lactated ringers BOLUS 250 mL New Bag 10/08/2021 9:19 PM CDT 250 mLs 250 mL/hr Intravenous, 250 mL, ONCE, at 250 mL/hr, Administer over 1 Hours, On Mon10/08/21 at 2115, For 1 dose lactated ringers BOLUS 250 mL New Bag 10/08/2021 9:43 PM CDT 250 mLs 250 mL/hr Intravenous, 250 mL, ONCE, at 250 mL/hr, Administer over 1 Hours, On Mon10/08/21 at 2145, For 1 dose lidocaine 1 % 0.5 mL Given 10/11/2021 3:33 PM CDT 0.5 mLs 0.5 mL, Intradermal, ONCE PRN, WITHIN 24 HOURS For local anesthesia at fistula/graft site, Starting on Mon10/11/21 at 1428, For 1 dose, For local anesthesia at VENOUS fistula/graft site. Give once, if needed, at the dialysis treatment., Dialysis lidocaine 1 % 0.5 mL Given 10/11/2021 3:33 PM CDT 0.5 mLs 0.5 mL, Intradermal, ONCE PRN, For local anesthesia at ARTERIAL fistula/graft site., Starting on 10/11/21 at 1428, For 1 dose, Give once, if needed, at the dialysis treatment., Dialysis multivitamin RENAL Given 10/11/2021 8:15 AM CDT 1 capsule (NEPHROCAPS/TRIPHROCAPS) capsule 1 capsu le 1 capsule, Oral, DAILY, First dose on 10/09/21 at 0800 Given 10/10/2021 12:07 PM CDT 1 capsule Given 10/09/2021 9:40 AM CDT 1 capsule naloxone (NARCAN) injection 0.2 mg 0.2 mg, Intravenous, EVERY 2 MIN PRN, op ioid reversal, Starting on 10/10/21 at 1011, Administer intravenous route when available and notify provider when administered. For unintended sedation or respiratory depression if all of the below criteria are met: ~ respiratory rate LES S than or EQUAL to 8. ~SaO2 less than 92% and or/end-tidal CO2 is greater than 50. ~ the patient is receiving an opioid, has unintended sedations assessed as RASS (-3), and is cur rently not on mechanical ventilation. RASS scale moderate (-3) is movement or eye opening to voice but no eye contact. Patient Monitoring Once the patient has demonstrated a response to the naloxone, continue to monitor respiratory rate, depth, oxygen saturation and end-tidal CO2 (if available) every 15 mi nutes x 2, then every 30 minutes x 2, then every 1 hour x 1 after each naloxone dose. Consider tr ansfer to ICU if patient respiratory parameters have not improved after 4 nalox one doses. naloxone (NARCAN) injection 0.2 mg 0.2 mg, Intramuscular, EVERY 2 MIN PRN, opioid reversal, Starting on 10/10/21 at 1011, Administer intramuscular if an int ravenous route is not available and notify provider when administered. For unintend ed sedation or respiratory depression if all of the below criteria are met: ~ respiratory rate LESS than or EQUAL to 8. ~SaO2 less than 92% and or/end-tidal CO2 is greater th an 50. ~ the patient is receiving an opioid, has unintended sedations assessed as RASS (-3), and is currently not on mechanical ventilation. RASS scale moderate (-3) is movement or eye opening to voice but no eye contact. Patient Monitoring Once the patient has demonstrated a response to the naloxone, continue to m onitor respiratory rate, depth, oxygen saturation and end-tidal CO2 (if availab le) every 15 minutes x 2, then every 30 minutes x 2, then every 1 hour x 1 after each naloxone dose. Consider transfer to ICU if patient respiratory parameters have not improved after 4 naloxone doses. naloxone (NARCAN) injection 0.4 mg 0.4 mg, Intravenous, EVERY 2 MIN PRN, op ioid reversal, Starting on Gilbert 10/10/21 at 1011, Administer intravenous route when available and notify provider when administered. For unintended sedation or respiratory depression if all of the below criteria are met: ~ respiratory rate LES S than or EQUAL to 8. ~ SaO2 less than 92% and or/end-tidal CO2 is greater than 50. ~ the patient is receiving an opioid, has unintended sedation assessed as RASS (-4 ) or (-5) and patient is currently not on mechanical ventilation. RASS scale (-4) is deep sedation with no response to voice but movement or eye opening to physical stimulation. R ASS scale (-5) is unarousable. Patient Monitoring Once the patient has demonstrated a response to the naloxone, continue to monitor respiratory rate, depth, oxygen saturation and end-tidal CO2 (if available) every 15 mi nutes x 2, then every 30 minutes x 2, then every 1 hour x 1 after each naloxone dose. Consider tr ansfer to ICU if patient respiratory parameters have not improved after 4 nalox one doses. naloxone (NARCAN) injection 0.4 mg 0.4 mg, Intramuscular, EVERY 2 MIN PRN, opioid reversal, Starting on 10/10/21 at 1011, Administer intramuscular if an int ravenous route is not available and notify provider when administered. For unintend ed sedation or respiratory depression if all of the below criteria are met: ~ res piratory rate LESS than or EQUAL to 8. ~ SaO2 less than 92% and or/end-tidal CO2 is greater tash n 50. ~ the patient is receiving an opioid, has unintended sedation assessed as RASS (-4) or (-5) and patient is currently not on mechanical ventilation. RA SS scale (-4) is deep sedation with no response to voice but movement or eye opening to physical stimulation. RASS scale (-5) is unarousa ble. Patient Monitoring Once the patient has demonstrated a response to the nalox one, continue to monitor respiratory rate, depth, oxygen saturation and end-tidal CO2 (if availab le) every 15 minutes x 2, then every 30 minutes x 2, then every 1 hour x 1 after each naloxone dose. Consider transfer to ICU if patient respiratory parameters have not improved after 4 naloxone doses. No heparin via hemodialysis machine Given 10/11/2021 3:30 PM CDT ONCE, 1 dose, On Mon10/11/21 at 1430, Normal saline flushes may be used to maintain patency of circuit., Dialysis octreotide (sandoSTATIN) Rate/Dose Verify 10/09/2021 11:26 AM 50 mc g/hr 10 mL/hr 1,250 mcg in D5W 250 mL CDT 50 mcg/hr (10 mL/hr), Intravenous, CONTINUOUS, Starting on Mon10/08/21 at 1940, Decrease to 25 mcg for 12 hours then stop Irritant. Rate/Dose Verify 10/09/2021 9:00 AM CDT 50 mcg/hr 10 mL/hr Rate/Dose Verify 10/09/2021 1:41 AM CDT 50 mcg/hr 10 mL/hr octreotide (sandoSTATIN) injection 50 mc g Given 10/08/2021 8:32 PM CDT 50 mcg 50 mcg, Intravenous, ONCE, On Mon10/08/21 at 1940, For 1 dose ondansetron (ZOFRAN) injection 4 mg Given 10/08/2021 9:17 PM CDT 4 mg 4 mg, Intravenous, ONCE, Administer over 2-5 Minutes, On Mon10/08/21 at 2115, For 1 dose, Irritant. pantoprazole (PROTONIX) 80 mg in New Bag 10/10/2021 3:50 AM CD T 8 mg/hr 10 mL/hr sodium chloride 0.9 % 100 mL infusion 8 mg/hr (10 mL/hr), Intravenous, CONTINUOUS, Starting on Mon10/08/21 at 1940, Irritant. New Bag 10/09/2021 3:52 PM CDT 8 mg/hr 10 mL/hr Rate/Dose Verify 10/09/2021 11:26 AM CDT 8 mg/hr 10 mL/hr pantoprazole (PROTONIX) EC tablet 40 mg Given 10/11/2021 6:38 AM CDT 40 mg 40 mg, Oral, EVERY MORNING BEFORE BREAKFAST, First dose on 10/10/21 at 1200, DO NOT CRUSH. Given 10/10/2021 12:07 PM CDT 40 mg sevelamer carbonate (RENVELA) tablet 800 mg Given 10/11/2021 6:38 PM CDT 800 mg 800 mg, Oral, 3 TIMES DAILY WITH MEALS, First dose on 10/09/21 at 0800, Do not crush. Take with meals. Should not be given if patient is NPO. Given 10/11/2021 12:32 PM CDT 800 mg Given 10/11/2021 8:16 AM CDT 800 mg sodium chloride (PF) 0.9% PF flush 3 mL Given 10/11/2021 6:38 PM CDT 3 mLs 3 mL, Intracatheter, EVERY 8 HOURS, First dose on 10/09/21 at 0145, to lock peripheral IV dormant line Given 10/11/2021 9:22 AM CDT 3 mLs Given 10/11/2021 12:39 AM CDT 3 mLs sodium chloride (PF) 0.9% PF flush 3 mL Given 10/10/2021 12:11 PM CDT 3 mLs 3 mL, Intracatheter, EVERY 1 MIN PRN, line flush, other, to ensure patency or to lock dormant line, Starting on 10/09/21 at 0143 sucralfate (CARAFATE) suspension 1 g Given 10/11/2021 6:38 PM CDT 1 g 1 g, Oral, 3 TIMES DAILY BEFORE MEALS, First dose (after last modification) on 10/10/21 at 1200, Shake well. Recommended to take before meals. Given 10/11/2021 12:33 PM CDT 1 g Given 10/11/2021 6:39 AM CDT 1 g documented in this encounter Active and Recently Administered Medications Times are shown in CDT. Scheduled Medication Order 10/09/2021 10/10/2021 10/11/2021 0.9% sodium chloride BOLUS (COMPLETED) 0036 (New Bag - Provider: Eugene Sherman RN) Intravenous, 500 mL, ONCE, at 500 mL/hr, Administer over 1 Hours, On 10/10/21 at 0030, For 1 dose 0.9% sodium chloride BOLUS (COMPLETED) 1529 (New Bag - Provider: Lolly Xavier, RN) Intravenous, 250 mL, ONCE IN DIALYSIS/CR RT, On Mon10/11/21 at 1430, For 1 dose, For patient prime during dialysis, Dialysis 0.9% sodium chloride BOLUS (COMPLETED) 1529 (New Bag - Provider: Lolly Xavier, RN) Hemodialysis Machine, 300 mL, ONCE, On on 10/11/21 at 1430, For 1 dose, For Dialyzer Prime. (In Dialyzer), Dialysis acetaminophen (TYLENOL) tablet 975 mg 0631 (Given - Pr ovider: Calista Recio, RN)1507 (Not Given - Provider: Kaylee Trejo RN - Reason: Patient/family refused)2325 (Not Given - Provider: Fredy Brian RN - Reason: Patient/family refused) 0604 (Not Given - Provider: Eugene Sherman RN - Reason: Patient/family refused)0748 (Auto Hold - Provider: Orders Generic Provider - Reason: Transfer to a procedural area)1133 (Unhold - Provider: Orders Generic Provider) 0639 (Not Given - Provider: Jovita merino RN - Reason: Patient/family refused)1126 (Given - Provider: Melanie Rodriguez, OVI)1526 (Not Given - Provider: Melanie Rodriguez RN - Reason: Other - Comment: too soon to give q8h) 975 mg, Oral, EVERY 8 HOURS, First dose on Mon10/09/21 at 0700, Maximum acetaminophen dose from all sources = 75 mg/kg/day not to exceed 4 grams/day. 1420 (Not Given - Provider: Kaylee Trejo RN - Reason: Patient/family refused)2205 (Not Given - Provider: Aracelis Goldstein RN - Reason: Patient/family refused) allopurinol (ZYLOPRIM) tablet 100 mg 0940 (Given - Provider: Essence Osuna RN) 0748 (Auto Hold - Provider: Orders Generic Provider - Reason: Transfer to a procedural area)0800 (Automatically Held - Provider: Orders Generic Provider)1133 (Unhold - Provider: Orders Generic Provider)1208 (Given - Provider: Kaylee Trejo RN) 0816 (Given - Provider: Melanie Rodriguez, OVI) 100 mg, Oral, DAILY, First dose on 10/09/21 at 0800 atorvastatin (LIPITOR) tablet 20 mg 0940 (Given - Provider: Essence Osuna RN) 0748 (Auto Hold - Provider: Orders Generic Provider - Reason: Transfer to a procedural area)0800 (Automatically Held - Provider: Orders Generic Provider)1133 (Unhold - Provider: Orders Generic Provider)1208 (Given - Provider: Kaylee Trejo, OVI) 0816 (Given - Provider: Melanie Rodriguez, OVI) 20 mg, Oral, DAILY, First dose on 10/09/21 at 0800 epoetin tee-epbx (RETACRIT) injection 4,000 Units (COMPLETED) 1530 (Given - Provider: Lolly Xavier, OVI) 4,000 Units, Intravenous, ONCE, On Mon at 1430, For 1 dose, Give during dialysis., Dialysis fluticasone-vilanterol (BREO ELLIPTA) 100-25 MCG/INH i nhaler 1 puff 0939 (Given - Provider: Essence Osuna RN) 0748 (Auto Hold - Provider: Orders Gener ic Provider - Reason: Transfer to a procedural area)0800 (Automatically Held - Provider: Orders Generic Provider)1133 (Unhold - Provider: Orders Generic Provider)1213 (Given - Provider: Kaylee Trejo RN) 0759 (Given - Provider: Phillip Cm, RT) 1 puff, Inhalation, DAILY, First dose on 10/09/21 at 0800, This therapy was substituted for fluticasone salmeterol (HFA) 115/21 mcg inhaler 1-2 puffs Daily or BID. Check the dose counter on the inhal er to ensure there are doses remaining before administering. multivitamin RENAL (NEPHROCAPS/TRIPHROCAPS) capsule 1 capsule 0940 (Given - Provider: Essence Osuna RN) 0748 (Auto Hold - Provider: Orders Gener ic Provider - Reason: Transfer to a procedural area)0800 (Automatically Held - Provider: Orders Generic Provider)1133 (Unhold - Provider: Orders Generic Provider)1207 (Given - Provider: Kaylee Trejo RN) 0815 (Given - Provider: Melanie Rodriguez RN) 1 capsule, Oral, DAILY, First dose on 10/09/21 at 0800 No heparin via hemodialysis machine (COMPLETED) 1530 (Given - Provider: Lolly Xavier, OVI) ONCE, 1 dose, On 10/11/21 at 1430, No rmal saline flushes may be used to maintain patency of circuit., Dialysis pantoprazole (PROTONIX) EC tablet 40 mg 1207 (Given - Provider: Kaylee Trejo RN) 0638 (Given - Provider: Jovita Blackmon RN) 40 mg, Oral, EVERY MORNING BEFORE BREAKF AST, First dose on 10/10/21 at 1200, DO NOT CRUSH. sevelamer carbonate (RENVELA) tablet 800 mg 0859 (Not Given - Provider: Essence Osuna RN - Reason: NPO)1346 (Not Given - Provider: Essence Osuna RN - Reason: NPO)1818 (Given - Provider: Fredy Brian RN) 0748 (Auto Hold - Provider: Orders Generic Provider - Reason: Transfer to a procedural area)0800 (Not Given - Provider: Kaylee Trejo RN - Reason: NPO)1133 (Unhold - Provider: Orders Generic Provider) 0816 (Given - Provider: Melanie Rodriguez RN)1232 (Given - Provider: Melanie Rodriguez RN)1838 (Given - Provider: Aracelis Goldstein, OVI) 800 mg, Oral, 3 TIMES DAILY WITH MEALS, First dose on 10/09/21 at 0800, Do not crush. Take with meals. Should not be given if patient is NPO. 1207 (Given - Provider: Kaylee Trejo RN)1854 (Given - Provider: Aracelis Goldstein RN) sodium chloride (PF) 0.9% PF flush 3 mL 0858 (Not Give n - Provider: Essence Osuna RN - Reason: IV Infusing)1125 (Canceled Entry - Provider: Essence Osuna RN)1827 (Not Given - Provider: Fredy Brian RN - Reason: IV Infusing) 0013 (Given - Provider: Eugene Sherman RN)0748 (Auto Hold - Provider: Orders Generic Provider - Reason: Transfer to a procedural area)0945 (Automatically Held - Provider: Orders Generic Provider)1133 (Unhold - Provider: Orders Generic Provider) 0039 (Given - Provider: Jovita Blackmon, RN)0145 (Canceled Entry - Provider: Jovita Blackmon, RN)0922 (Given - Provider: Melanie Rodriguez, RN)1838 (Given - Provider: Aracelis Goldstein, OVI) 3 mL, Intracatheter, EVERY 8 HOURS, Firs t dose on 10/09/21 at 0145, to lock peripheral IV dormant line 1943 (Given - Provider: Aracelis Goldstein, RN) sucralfate (CARAFATE) suspension 1 g 141 9 (Not Given - Provider: Kaylee Trejo, OVI - Reason: Medication not available)1854 (Given - Provider: Aracelis Goldstein, OVI) 0639 (Given - Provider: Jovita Blackmon, OVI)1233 (Given - Provider: Melanie Rodriguez, OVI)1838 (Given - Provider: Aracelis Goldstein, OVI) 1 g, Oral, 3 TIMES DAILY BEFORE MEALS, F irst dose (after last modification) on 10/10/21 at 1200, Shake well. Recommended to take before meals. Continuous Medication Order 10/09/2021 10/10/2021 10/11/2021 octreotide (sandoSTATIN) 1,250 mcg in D5W 250 mL (CANC ELED) 0141 (Rate/Dose Verify - Provider: Kayla Thompson RN)0900 (Rate/Dose Verify - Provider: Essence Osuna, OVI)1126 (Rate/Dose Verify - Provider: Essence Osuna, OVI) 0715 (Paused - Provider: Kaylee Trejo, OVI) 50 mcg/hr (10 mL/hr), Intravenous, WILLI NUOUS, Starting on 10/08/21 at 1940, Decrease to 25 mcg for 12 hours then stop Irritant. pantoprazole (PROTONIX) 80 mg in sodium chloride 0.9 % 100 mL infusion (CANCELED) 0142 (Rate/Dose Verify - Provider: Tavo Thompson RN)0629 (New Bag - Provider: Calista Recio RN)0900 (Rate/Dose Verify - Provider: Essence Osuna, RN)1126 (Rate/Dose Verify - Provider: Essence Osuna, RN) 0350 (New Bag - Provider: Eugene Sherman, OVI)0715 (Stopped - Provider: Kaylee Trejo, OVI) 8 mg/hr (10 mL/hr), Intravenous, CONTINU OUS, Starting on 10/08/21 at 1940, Irritant. 1552 (New Bag - Provider: Fredy Brian RN) PRN Medication Order 10/09/2021 10/10/2021 10/11/2021 ipratropium - albuterol 0.5 mg/2.5 mg/3 mL (DUONEB) neb solu tion 3 mL 0748 (Auto Hold - Provider: Orders Generic Provider - Reason: Transfer to a procedural area)1133 (Unhold - Provider: Orders Generic Provider) 3 mL, Nebulization, EVERY 4 HOURS PRN, w heezing, Starting on 10/09/21 at 0143 lidocaine (LMX4) cream 0748 (Auto Hold - Provider: Orders Generic Provider - Reason: Transfer to a procedural area)1133 (Unhold - Provider: Orders Generic Provider) Topical, EVERY 1 HOUR PRN, pain, with VA D insertion, Starting on 10/09/21 at 0143, Apply at least 30 minutes prior to VAD insertion in divided doses as needed for size of site for insertion. MAX Dose : 2.5 g (?? of 5 g tube) Do NOT give if patient has a history of allergy to any local anesthetic or any brice product. Do NOT use both lidocaine intradermal/subcutaneous injection and the lidocaine cream on the same site. lidocaine 1 % 0.1-1 mL 0748 (Auto Hold - Provider: Orders Generic Provider - Reason: Transfer to a procedural area)1133 (Unhold - Provider: Orders Generic Provider) 0.1-1 mL, Other, EVERY 1 HOUR PRN, mild pain with VAD insertion, Starting on 10/09/21 at 0143, MAX dose 1 mL subcutaneous OR intradermal along the side of the vein in divided doses as needed for VAD insertion. Do NOT give if patient has a history of allergy to any local anesthetic or any brice product. Do NOT use both lidocaine intradermal/subcutaneous injection and the lidocaine cream on the same site. lidocaine 1 % 0.5 mL (COMPLETED) 1533 (Given - Provider: Lolly Xavier RN) 0.5 mL, Intradermal, ONCE PRN, WITHIN 24 HOURS For local anesthesia at fistula/graft site, Starting on 10/11/21 at 1428, For 1 dose, For local anesthesia at VENOUS fistula/graft site. Give once, if needed, at the dialysis treatment., Dialysis lidocaine 1 % 0.5 mL (COMPLETED) 1533 (Given - Provider: Lolly Xavier RN) 0.5 mL, Intradermal, ONCE PRN, For local anesthesia at ARTERIAL fistula/graft site., Starting on 10/11/21 at 1428, For 1 dose, Give once, if needed, at the dialysis treatment., Dialysis melatonin tablet 1 mg 0748 (Auto Hold - Provider: Orders Generic Provider - Reason: Transfer to a procedural area)1133 (Unhold - Provider: Orders Generic Provider) 1 mg, Oral, AT BEDTIME PRN, sleep, Start ing on 10/09/21 at 0143, Do not give unless at least 6 hours of uninterrupted sleep is expected. naloxone (NARCAN) injection 0.2 mg 0.2 mg, Intravenous, EVERY 2 MIN PRN, op ioid reversal, Starting on 10/10/21 at 1011, Administer intravenous route when available and notify provider when administered. For unintended sedation or resp iratory depression if all of the below c riteria are met: ~ respiratory rate LESS than or EQUAL to 8. ~SaO2 less than 92% and or/end-tidal CO2 is greater than 50. ~ the patient is receiving an opioid, vasquez s unintended sedations assessed as RASS (-3), and is currently not on mechanical ventilation. RASS scale moderate (-3) is movement or eye opening to voice but no eye contact. Patient Monitoring Once the patient has demonstrated a response to the naloxone, continue to monitor respiratory rate, depth, oxygen saturation and end-tidal CO2 (if available) every 15 minutes x 2, then every 30 minutes x 2, the n every 1 hour x 1 after each naloxone d ose. Consider transfer to ICU if patient respiratory parameters have not improved after 4 naloxone doses. naloxone (NARCAN) injection 0.2 mg 0.2 mg, Intramuscular, EVERY 2 MIN PRN, opioid reversal, Starting on 10/10/21 at 1011, Administer intramuscular if an intravenous route is not available and notify provider when administered. For uni ntended sedation or respiratory depressi on if all of the below criteria are met: ~ respiratory rate LESS than or EQUAL to 8. ~SaO2 less than 92% and or/end- tidal CO2 is greater than 50. ~ the patient is receiving an opioid, has unintended sed ations assessed as RASS (-3), and is currently not on mechanical ventilation. RASS scale moderate (-3) is movement or eye opening to voice but no eye contact. Pat ient Monitoring Once the patient has dem onstrated a response to the naloxone, continue to monitor respiratory rate, depth, oxygen saturation and end-tidal CO2 (if available) every 15 minutes x 2, then e very 30 minutes x 2, then every 1 hour x 1 after each naloxone dose. Consider transfer to ICU if patient respiratory parameters have not improved after 4 naloxone doses. naloxone (NARCAN) injection 0.4 mg 0.4 mg, Intravenous, EVERY 2 MIN PRN, op ioid reversal, Starting on [place] 10/10/21 at 1011, Administer intravenous route when available and notify provider when administered. For unintended sedation or resp iratory depression if all of the below c riteria are met: ~ respiratory rate LESS than or EQUAL to 8. ~ SaO2 less than 92% and or/end-tidal CO2 is greater than 50. ~ the patient is receiving an opioid, h as unintended sedation assessed as RASS (-4) or (-5) and patient is currently not on mechanical ventilation. RASS scale (-4) is deep sedation with no response to voice but movement or eye opening to phy sical stimulation. RASS scale (-5) is un arousable. Patient Monitoring Once the patient has demonstrated a response to the naloxone, continue to monitor respiratory rate, depth, oxygen saturation and end -tidal CO2 (if available) every 15 minut es x 2, then every 30 minutes x 2, then every 1 hour x 1 after each naloxone dose. Consider transfer to ICU if patient respiratory parameters have not improved after 4 naloxone doses. naloxone (NARCAN) injection 0.4 mg 0.4 mg, Intramuscular, EVERY 2 MIN PRN, opioid reversal, Starting on [place] 10/10/21 at 1011, Administer intramuscular if an intravenous route is not available and notify provider when administered. For uni ntended sedation or respiratory depressi on if all of the below criteria are met: ~ respiratory rate LESS than or EQUAL to 8. ~ SaO2 less than 92% and or/end- tidal CO2 is greater than 50. ~ the patient i s receiving an opioid, has unintended se dation assessed as RASS (-4) or (-5) and patient is currently not on mechanical ventilation. RASS scale (-4) is deep sedation with no response to voice but moveme nt or eye opening to physical stimulatio n. RASS scale (-5) is unarousable. Patient Monitoring Once the patient has demonstrated a response to the naloxone, continue to monitor respiratory rate, depth, o xygen saturation and end-tidal CO2 (if a vailable) every 15 minutes x 2, then every 30 minutes x 2, then every 1 hour x 1 after each naloxone dose. Consider transfer to ICU if patient respiratory parameters have not improved after 4 naloxone doses. oxyCODONE IR (ROXICODONE) half-tab 2.5 mg 0748 (Auto Hold - Provider: Orders Generic Provider - Reason: Transfer to a procedural area)1133 (Unhold - Provider: Orders Generic Provider) 2.5 mg, Oral, EVERY 4 HOURS PRN, moderat e to severe pain, Starting on 10/09/21 at 0143, IF pain not managed with non-pharmacological and non-opioid interventions; may use concomitant with non-opioid analgesics. sodium chloride (PF) 0.9% PF flush 3 mL 0748 (Auto Hold - Provider: Orders Generic Provider - Reason: Transfer to a procedural area)1133 (Unhold - Provider: Orders Generic Provider)1211 (Given - Provider: Kaylee Trejo, OVI) 3 mL, Intracatheter, EVERY 1 MIN PRN, li ne flush, other, to ensure patency or to lock dormant line, Starting on 10/09/21 at 0143 documented in this encounter Care Teams Engineer Second Assistant Relationship Specialty Start Date End Date Liban Leos PCP - General Family Medicine 10/08/21 [address] [place] [address] Ernie Pompa MD MD Nephrology 10/08/21 [address] [place] [address] documented as of this encounter
--- OUTSIDE RECORDS SUMMARY | 2021-10-27 05:40 | XMS_ITS | Clinical Summary ---
:1945 Author Organization [facility] Address [address] [place] [id number] Care Team Providers Name Role Phone Liban Leos Primary Care Provider Ernie Pompa MD Unavailable Allergies Active Allergy Reactions Severity Noted Date Comments Blood-Group Specific Other (See Comments) 01/15/2019 Patient has a Substance Suggestive Warm Auto antibody. Blood products may be delayed. Draw p atient 24 hours prior to transfusion. Dr espinoza one red top and two purple top tubes for a ll type and screen orde rs. Lisinopril Cough 06/07/2006 Medications Medication Sig Dispensed Refills Start Date End Date Status allopurinol Take 100 mg by 0 12/15/2020 Ac tive (ZYLOPRIM) 100 MG mouth daily tablet atorvastatin Take 20 mg by 0 12/15/2020 Ac tive (LIPITOR) 20 MG mouth daily tablet fluticasone Narvon 1 spray 0 12/15/2020 Act joe (FLONASE) 50 in nostril MCG/ACT nasal daily spray fluticasone-salme Inhale 2 puffs 0 07/04/2021 Active terol (ADVAIR into the lungs HFA) 115-21 2 times daily MCG/ACT inhaler metoprolol Take 0.5 0 12/15/2020 Active succinate ER tablets by (TOPROL XL) 25 MG mouth daily 24 hr tablet sevelamer Take 1 tablet 0 09/10/2021 Activ e carbonate by mouth 3 (RENVELA) 800 MG times daily tablet (with meals) multivitamin Take 1 capsule 0 12/15/2020 A ctive RENAL by mouth (MULTIVITAMIN RENAL) 1 MG capsule lidocaine-priloca APPLY SMALL 0 08/13/2021 Active ine (EMLA) AMOUNT TO 2.5-2.5 % ACCESS SITE external cream (AVF) 1 TO 2 HOURS BEFORE DIALYSIS. COVER WITH OCCLUSIVE DRESSING (SARAN WRAP) pantoprazole Take 1 tablet 30 tablet 1 10/12/2021 Ac tive (PROTONIX) 40 MG (40 mg) by EC mouth every tabletIndications morning : UGI bleed (before breakfast) sucralfate Take 1 tablet 90 tablet 0 10/11/2021 Acti ve (CARAFATE) 1 GM (1 g) by mouth 2 tabletIndications 3 times daily : UGI bleed (with meals) for 30 days aspirin (ASA) 81 Take 81 mg by 0 Discontinued MG EC tablet mouth 2 (Stop a t Discharge) Active Problems Problem Noted Date CKD (chronic kidney disease) stage 5, GFR less than 15 ml/min 10/08/2021 Heart failure with preserved ejection fraction 022 Overview: Formatting of this note might be differe nt from the original. ef 67% 02/2019 UGI bleed 10/08/2021 Primary osteoarthritis of knees, bilateral 06/09/2021 Overview: Formatting of this note might be differe nt from the original. May 2021: bilateral cortisone knee inj ections by Dr. Lara. 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 09/03/08 s/p AVR 25 mm Trinidad Magna Ther mafix Pericardial Valve. No Coumadin needed for tissue AVR, js mmend Aspirin 325mg daily X1 month, then 81 mg daily indefinitely. Coronary atherosclerosis 04/04/2007 Overview: Formatting of this note might be differe nt from the original. Angiogram/PCI 04/04/07: LAD: 70% stenosis mid, 90% distal. LCx: mild luminal irregularities. RCA: dominant, mild luminal irregularities. EF 60%. LV Pressure = 168/24. RA=12; RV=40/15; PW=16; PA=32/17, me an 22. PCI: TAXUS Stent to Mid LAD, PTCA /BMS to Distal LAD. Essential hypertension 06/07/2006 Hyperlipidemia 06/07/2006 Polyneuropathy in other diseases classified elsewhere 06/07/2006 Diabetes mellitus with neurological manifestations, un controlled 02/18/2002 Encounters Date Type Specialty Care Team Description 10/12/2021 Orders Only FP-IM-PED Deric, Other specified counseling Liban Gruber 10/10/2021 Anesthesia Event Surgery [facility], Herman Lazo MD 10/10/2021 Surgery Surgery Lizz, ESOPHAGOGASTROD UODENOSCOPY Joce Rene MD 10/08/2021 [facility] Med Surg [place], UGI bleed - Encounter Florentino Romo MD 10/11/2021 Fadi Viveros DO Amdahl, MD Gerald Zamarripa, Rhys Alvares MD 10/08/2021 Travel from Last 3 Months Social History Tobacco Use Types Packs/Day Years [...] was confirmed or suspected to have Coronavirus/COVID-19? Last Filed Vital Signs Vital Sign Reading [...] Mass Index 36.86 10/09/2021 2:08 PM CDT Plan of Treatment Health Maintenance Due Date Last Done Comments ADVANCE CARE PLANNING 1945 ANNUAL REVIEW OF HM ORDERS 1945 CT COLONOGRAPHY 1945 DIABETIC FOOT EXAM 1945 EYE EXAM 1945 FIT-DNA (Cologuard) 1945 FIT 1945 FLEX SIG 1945 LIPID 1945 MICROALBUMIN 1946 PARATHYROID 1946 PHOSPHORUS 1945 URINALYSIS 08/06/1947 COLONOSCOPY 1956 COLORECTAL CANCER SCREENING 1956 HEPATITIS C SCREENING 1964 ZOSTER IMMUNIZATION (1 of 1965 2) AORTIC ANEURYSM SCREENING 08/06/2011 (SYSTEM ASSIGNED) FALL RISK ASSESSMENT 08/06/2011 MEDICARE ANNUAL WELLNESS 08/06/2011 VISIT DTAP/TDAP/TD IMMUNIZATION 08/29/2018 08/29/2008, 03/20/1997 (2 - Td or Tdap) PHQ-2 (once per calendar 03/20/2021 year) COVID-19 Vaccine (4 - 05/29/2021 01/29/2021, 05/11/2020, Booster for Moderna series) 04/17/2020 A1C 08/18/2021 05/18/2021 INFLUENZA VACCINE (#1) 2021 12/18/2020, 12/04/2019, 12/28/2018, Additional history exists BMP 01/11/2022 10/11/2021, 10/10/2021, 10/09/2021, Additional history exists HEMOGLOBIN 04/13/2022 10/11/2021, 10/10/2021, 10/10/2021, Additional history exists Pneumococcal Vaccine: 65+ Completed 12/09/2015, 08/21/2014 , Years 10/07/2008 ALK PHOS Completed 10/08/2021 IPV IMMUNIZATION Aged Out No longer eligi ble based on patient 's age to complete this topic MENINGITIS IMMUNIZATION Aged Out No longe r eligible based on patient 's age to complete this topic Procedures Procedure Name Priority Date/Time Associated Comments Diagnosis HEMODIALYSIS SINGLE TREATMENT Routine 10/11/2021 SETUP ([facility]) 4:33 PM CDT HEMODIALYSIS DIALYZER ([facility]) Routine 10/11/2021 2:28 PM CDT IP TERMINATION [...] CELLS (UNIT) STAT 10/09/2021 9:21 AM CDT CBC WITH PLATELETS STAT 10/09/2021 Results f or 9:12 AM CDT this procedure are in the results section. BASIC METABOLIC PANEL STAT 10/09/2021 Result s [...] this procedure are in the results section. from Last 3 Months Results Hepatitis B surface antigen (10/11/2021 7:46 AM CDT) [facility] Method Time Signature Hepatitis B Nonreactive Nonreactive 10/11/2021 [facility] Surface 4:30 PM CDT CORE/PROT/EN Antigen DO Specimen Anatomical Collection Method / Collection Time Recei annie Time (Source) Location / Volume Laterality Blood STRUCTURE OF RIGHT Venipuncture / 10/11/2021 7:46 09/18 7:58 HAND / Unknown Unknown AM CDT AM CDT Terry Wolfe MD LAB - BLOOD ORDERABLES Performing Organization Address City/State/ZIP Code Phon e Number [facility] CORE/PROT/ENDO [facility] [place] [place] [address] Core/Prot/Endo [address] [facility] [address] Building, Room 3-580 (ABNORMAL) Basic metabolic panel (10/11/2021 6:36 AM CDT)Only the most recent of 3 resultswithin the time period is included. [facility] Method Time Signature Sodium 134 133 - 144 10/11/2021 [facility] mmol/L 7:00 AM CDT Potassium 5.1 [...] es age and gender (Brigette et al., NEJ, DOI: 10.1056/OVVDsa2947445) Specimen Anatomical Collection Method / Collection Time Recei annie Time (Source) Location / Volume Laterality Blood STRUCTURE OF RIGHT Venipuncture / 10/11/2021 6:36 07/2 07/2021 6:42 HAND / Unknown Unknown AM CDT AM CDT Dallin Farah DO LAB - BLOOD ORDERABLES Performing Organization Address City/State/[place] [phone] Care Lab [address] Lab (1st floor, no room number) (ABNORMAL) CBC with platelets (10/11/2021 6:36 AM CDT)Only the most recent of3 resultswithin the time period is included. [facility] gist Method Time Signature WBC Count 7.1 [...] Organization Address City/State/[place] [phone] Care Lab [address] Lab (1st floor, no room number) (ABNORMAL) Glucose by meter (10/10/2021 9:21 AM CDT)Only the most recent of2 resultswithin the time period is included. P athologist Signature GLUCOSE BY 126 (H) 70 - 99 10/10/2021 [facility] METER POCT mg/dL 9:27 AM CDT POC Specimen (Source) Anatomical Collection Method Collection Time Re ceived Time Location / / Volume Laterality Blood, Capillary BLOOD SPECIMEN / 10/10/2021 9:21 07/06/2021 9:27 Unknown AM CDT AM CDT Rhys Duarte MD [facility] POCT Performing Organization Address City/State/ZIP Code Phon e Number [place] [address] Care Lab [address] Lab (1st floor, no room number) Surgical Pathology Exam (10/10/2021 8:58 AM CDT) Component Value Ref Test Analysis Performed Pathologis t Range Method Time At Signature Case Report Surgical Pathology Report ? Case: [id number] ? Authorizing Provider: ??Carb allo, Joce ? Collected: ? 10/10/2021 08:58 AM ? 2 8:22 AM LABORA TORY ? MD Edgard ? CDT Ordering Location: ? [facility] ?? Received: ?10/10/2021 09:42 AM ? Main [...] entirely submitted in 1 cassette. ([facility]) Microscopic Microscopic examination Description was performed. 2 8:22 AM LABORATORY CDT Special -Negative for H. Pylori orga nisms on immunohistochemical stains. All controls stain appropriately. RH Stains 2 8:22 AM LABORATORY CDT Performing The technical component Labs of this testing was 2 8:22 AM LABORATORY completed at [facility] Laboratory Case Images 2 8:22 AM LABORATORY CDT Specimen (Source) Anatomical Collection Method Collection Time Re ceived Time Location / / Volume Laterality Biopsy DUODENAL 10/10/2021 8:58 10/10/2021 9 :42 STRUCTURE / AM CDT AM CDT Unknown Specimen from STOMACH STRUCTURE 10/10/2021 8:59 2021 9:42 unspecified body / Unknown AM CDT AM CDT site obtained by biopsy (specimen) Joce OTERO - LINDSAY COLEY Performing Organization Address City/State/ZIP Code [place] [address] Care Lab [address] Lab (1st floor, no room number) UPPER GI ENDOSCOPY (10/10/2021 8:18 AM CDT) Component Value Ref Test Analysis Performed At Patholo gist Range Method Time Signature Upper GI [facility] RADIOLOGY Endoscopy RESULTS Patient Name: Shaun Ocampo ? Procedure Date: 09/18 8:18 AM ? Account Num flako: [id number] Date of : 1945 ?Admit Type: Inp [...] Model ?# GIF-H190, Endora # 205, SN #[id number] was ?introduced through the mouth, and advanced [...] Note Initiated On: 10/10/2021 8:18 AM MRN: ?[id number] Procedure Date: ? 10/10/2021 8:18:14 AM Total Procedure Duration: 0 hours 5 minutes 10 seconds Estimated Blood Loss: ? Scope In: 8:56:46 AM Scope Out: 9:01:56 AM Specimen (Source) Anatomical Collection Method Collection Time Re ceived Time Location / / Volume Laterality 10/10/2021 8:18 AM CDT Joce Zamudio MD PROCEDURES Performing Organization Address City/State/ZIP Code Phon e Number RADIOLOGY RESULTS (ABNORMAL) Hemoglobin (10/10/2021 2:15 AM CDT)Only the most recent of4 results within the time period is included. P athologist Signature Hemoglobin 9.2 (L) 13.3 [...] City/State/ZIP Code Phon [place] [address] Care Lab [address] Lab (1st floor, no room number) Transfuse red blood cells (unit) No special requirements (10/09/2021 11:51 AM CDT)Only the most recent of2 resultswithin the time period is included. Dallin Simons MD BLOOD TRANSFUSION ORDERABLES Prepare red blood cells (unit) (10/09/2021 6:52 AM CDT)Only the most recent of2 resultswithin the time period is included. Patholo gist Method Time Signature CROSSMATCH Compatible RH BLOOD BANK UNIT ABO/RH O Neg RH BLOOD BANK Unit Number [id number] RH BLOOD BANK Unit Status Transfused RH BLOOD BANK Blood Red Blood Cells RH BLOOD Component Type BANK Product Code [id number] RH BLOOD BANK CODING SYSTEM [id number] RH BLOOD BANK UNIT TYPE ISBT 9500 RH BLOOD BANK ISSUE DATE AND [id number] RH BLOOD TIME BANK Specimen (Source) Anatomical Collection Method Collection Time Re ceived Time Location / / Volume Laterality 10/09/2021 6:52 AM CDT Dallin Simons MD BLOOD BANK PRODUCT ORDERABLE S Performing Organization Address City/[facility]/ZIP Code Phon e Number [facility] BLOOD BANK [address] [place] [address] EKG 12-lead, tracing only (10/09/2021 12:52 AM CDT) Component Value Ref Range Test Analysis Performed Pathologis t Method Time At Signature Systolic Blood mmHg RADIOLOGY Pressure RESULTS Diastolic Blood mmHg RADIOLOGY Pressure RESULTS Ventricular Rate 70 BPM RADIOLOGY RESULTS Atrial Rate 39 BPM RADIOLOGY RESULTS CO Interval ms RADIOLOGY RESULTS QRS Duration 126 ms RADIOLOGY RESULTS QT 442 ms RADIOLOGY RESULTS QTc 477 ms RADIOLOGY RESULTS P [place] degrees RADIOLOGY RESULTS R AXIS 107 degrees RADIOLOGY RESULTS T [place] 33 degrees RADIOLOGY RESULTS Interpretation Atrial fibrillation RADIO LOGY ECG Right bundle branch block RESU LTS Abnormal ECG No previous ECGs available Confirmed by - EM[facility] [place] [facility] ([id number]), web editor ANDRÉS HATCH ([id number]) on 10/11/2021 6:42:29 AM Specimen Anatomical Collection Method Collection Time Receive d Time (Source) Location / / Volume Laterality 10/09/2021 12:52 10/11/2021 6:42 AM CDT AM CDT Layne Demetrius Rossi PA-C ECG ORDERABLES Performing Organization Address City/State/ZIP Code Phon e Number RADIOLOGY RESULTS Asymptomatic COVID-19 Virus (Coronavirus) by PCR Nasopharyngeal [...] the Xpert Xpress SARS-CoV-2 Assay on the [employer]Xpert [employer] Systems. A dditional information about this [...] COVID-19. This test was validated by the [facility]. This laboratory is certified under the Clinical Laboratory Improvement Amendments of 1988 (CLIA-88) as qualified to perform high complexity laboratory testing. Florentino Ragsdale MD LAB - MICRO GENERAL ORDERABL ES Performing Organization Address City/[facility]/ZIP Code [place] [address] Care Lab [address] Lab (1st floor, no room number) [...] LAB - BLOOD ORDERABLES Performing Organization Address City/[facility]/ZIP Code [place] [address] Care Lab [address] Lab (1st floor, no room number) Extra Red Top Tube (10/08/2021 7:02 PM CDT) P athologist Signature Hold Specimen JIC 10/08/2021 [facility] 8:18 PM CDT Specimen Anatomical Collection Method / Collection Time Recei annie Time (Source) Location / Volume Laterality Blood STRUCTURE OF RIGHT Venipuncture / 10/08/2021 7:02 07/2 04/2021 7:10 UPPER LIMB / Unknown PM CDT PM CDT Unknown Florentino Ragsdale MD LAB - BLOOD ORDERABLES Performing Organization Address City/[facility]/ZIP Code [place] [address] Care Lab [address] Lab (1st floor, no room number) (ABNORMAL) CBC with platelets and differential (10/08/2021 7:02 PM CDT) [facility] Method Time Signature WBC Count 7.1 [...] LAB - BLOOD ORDERABLES Performing Organization Address City/[facility]/ZIP Code Ph[place] [address] Care Lab [address] [facility] Lab (1st floor, no room number) Adult Type and Screen (10/08/2021 7:02 PM CDT) [facility] Method Time Signature ABO/RH(D) O NEG 10/08/2021 RH BLOOD 6:39 PM CDT BANK Antibody Negative Negative 10/08/2021 RH BLOOD Screen 6:39 PM CDT BANK SPECIMEN [id number] 10/08/2021 RH BLOOD EXPIRATION 6:39 PM CDT BANK DATE Specimen Anatomical Collection Method / Collection Time Recei annie Time (Source) Location / Volume Laterality Blood STRUCTURE OF RIGHT Venipuncture / 10/08/2021 7:02 09/18 7:10 UPPER LIMB / Unknown PM CDT PM CDT Unknown Florentino Ragsdale MD LAB - BLOOD BANK TEST ORDER Performing Organization Address City/State/ZIP Code Phon e Number [facility] BLOOD BANK [address] [place] [address] (ABNORMAL) Comprehensive metabolic panel (10/08/2021 7:02 PM CDT) [facility] Method Time Signature Sodium 136 133 - 144 10/08/2021 LABORATORY mmol/L 7:39 PM CDT Potassium 3.9 3.4 - 5.3 10/08/2021 LABORATORY mmol/L 7:39 PM CDT Chloride 100 94 - 109 10/08/2021 LABORATORY mmol/L 7:39 PM CDT Carbon Dioxide 30 20 - 32 10/08/2021 LABORATORY (CO2) mmol/L 7:39 PM CDT Anion Gap 6 3 - 14 10/08/2021 LABORATORY mmol/L 7:39 PM CDT Urea Nitrogen 36 (H) 7 - 30 10/08/2021 LABORATORY mg/dL 7:39 PM CDT Creatinine 2.80 (H) 0.66 - 10/08/2021 LABORATORY 1.25 7:39 PM CDT mg/dL Calcium [...] Albumin 2.9 (L) 3.4 - 5.0 10/08/2021 LABORATORY g/dL 7:39 PM CDT Bilirubin Total 0.8 0.2 - 1.3 10/08/2021 LABORATORY mg/dL 7:39 PM CDT GFR Estimate 23 (L) >60 10/08/2021 LABORATORY mL/min/1. 7:39 PM CDT 73m2 Comment: Effective March 09, 2021 eGF Rcr in adults is calculated using the 2020 CKD-EPI creatinine equation which includ es age and gender (Brigette et al., NEJ, DOI: 10.1056/ATUHsl6127058) Specimen Anatomical Collection Method / Collection Time Recei annie Time (Source) Location / Volume Laterality Blood STRUCTURE OF RIGHT Venipuncture / 10/08/2021 7:02 07/2 04/2021 7:10 UPPER LIMB / Unknown PM CDT PM CDT Unknown Florentino Ragsdale MD LAB - BLOOD ORDERABLES Performing Organization Address City/State/ZIP Code Phon [place] [address] Care Lab [address] Lab (1st floor, no room number) from Last 3 Months Insurance Payer Benefit Plan / Subscriber ID Effective Dates Phone Addre ss Type Group BCBS BCBS MEDICARE [id number] 2018-Presen [phone] [address] [address] Medicare ADVANTAGE t 0 [place] [address] Advance Directives For more information, please contact: [phone] Latest Code Status on File Code Status Date Activated Date Inactivated Comments Full Code 10/11/2021 10:33 AM Code status determined by: Discussion with patient/ legal de cision maker Full Code 10/09/2021 1:43 AM 10/11/2021 10:33 AM All basic a nd advanced life-sustaining interventions ar e performed as appropriate Code status determined by: Discussion with patient/ legal de cision maker Care Teams Inspector Purchased Parts Relationship Specialty Start Date End Date Liban Leos PCP - General Family Medicine 10/08/21 [address] [place] [address] Ernie Pompa MD MD Nephrology 10/08/21 [address] [place] [address]
--- OUTSIDE RECORDS SUMMARY | 2021-10-27 05:40 | XMS_ITS ---
:1945 Author Organization [facility], NA DOCUMENT DISCLAIMER The information in the [facility] Continuity of Care Document represents a summary of certain health and medical information. It may not contain the complete medical history for the patient and should be independently verified. The represented time in the document is Eastern Time. 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1 Active April 29, 2019 elsewhere classified Anemia in chronic kidney disease D63.1 Active April 29, 2019 Hypoglycemia, unspecified E16.2 Active 2019 Paroxysmal atrial fibrillation I48.0 Active April 29, 2019 End stage renal disease N18.6 Active ua ry 2019 ALLERGIES AND ADVERSE REACTIONS Substance Reaction Severity Status lisinopril cough Active SOCIAL HISTORY Tobacco Use Status Tobacco Type Unknown if ever consumed tobacco - Caregiver Characteristics No Information Available Characteristics of Home environment No Information Available MEDICATIONS Prescribed Medications for Dialysis Treatments Medication Instructions Dosage Route Start End Date Status Date Doxercalciferol Every 5 mcg Intravenous September 17September 16, Active (Hectorol) Treatment - push 2021 2022 Etelcalcetide Post 10 mg Intravenous September 27September 26, A ctive (Parsabiv) Dialysis, 3X - push 2021 2022 Week Heparin Sodium Intermittent 1000 Intravenous March Active (Porcine) 1,000 mid run, Every units - push 2021, 2022 Units/mL Systemic Treatment, Total treatment minutes 240 Heparin Sodium Bolus, Every 1999 Intravenous March Active (Porcine) 1,000 Treatment, units - push 2021, 2022 Units/mL Systemic Total treatment minutes 240 Iron Sucrose Every 100 mg Intravenous September 29October Ac tive (Venofer) Treatment - push 2021 Iron Sucrose 1X Week 50 mg Intravenous October Ac tive (Venofer) - push 2021 Etelcalcetide Post 7.5 mg Intravenous May Discontinued (Parsabiv) Dialysis, 3X - push 2021 Week Heparin Sodium Bolus, Once, 1999 Intravenous October Discontinued (Porcine) 1,000 Total units - push 2021 Units/mL Systemic treatment minutes 240 Iron Sucrose 1X Week 50 mg Intravenous July 26July 25, Di scontinued (Venofer) - push 2021 2022 Mircera Every 2 weeks 225 mcg Intravenous September 29September 28, D iscontinued - push 2021 2022 Home Medications Medication Instructions Dosage Route Start Date End Statu s Date albuterol sulfate Inhale as 3 ml INHALATION April Active 2.5 mg/3 mL (0.083 directed three 2019 %) times a day as needed allopurinol 100 mg Take by mouth 1 tablet ORAL April Active once a day as 2019 directed Aspir-81 81 mg Take by mouth 1 tablet by mouth April Active once a day as 2019 directed atorvastatin 20 mg Take once a day 1 tablet ORAL April Active 2019 cholecalciferol Take by mouth 1 tablet ORAL April Active (vitamin D3) 50 mcg once a day 2019 (2,000 unit) ferrous sulfate Take by mouth 1 mg ORAL April Active 325 mg (65 mg iron) once a day 2019 ipratropium-albute Inhale as 3 ml INHALATION April Active rol 0.5 mg-3 mg(2.5 directed every 2019 mg base)/3 mL six hours as needed lidocaine-prilocai TOPICAL August 13, Active ne 2.5-2.5% 2021 metoprolol Take by mouth 1/2 ORAL June 04, ctive succinate 25 mg once a day tablet 2019 Renvela 800 mg Take by mouth 1 tablet ORAL March Active three times a 2020 day with meals Triphrocaps 1 mg Take by mouth 1 capsule ORAL June 23 once a day 2019 VITAL SIGNS Post-Treatment Vital Signs Vital Sign Value Date / Time Blood Pressure-sitting 101/52 mmHg October 25, 2021 0 6:50 AM Blood Pressure-standing 110/43 mmHg October 25, 2021 06:50 AM Heart Rate 60 beats per minute October 25, 2021 06:5 0 AM Respiratory Rate 16 breaths per minute October 25, 2021 06 :50 AM Temperature 98.0 deg. F October 25, 2021 06:5 0 AM Weight Vital Sign Value Date / Time Estimated Dry Weight 109 kg August 13, 2021 11:59 PM Pre-Dialysis 112.30 kg October 25, 2021 06:5 0 AM Post-Dialysis 109.30 kg October 25, 2021 06:5 0 AM Other Other Value Date / Time Height 173 cm August 25, 2021 12:00 AM HEALTH CONCERNS Tuberculosis Testing TST Date Administered TST Date Read TST Result 04/09/2019 04/12/2019 Negative (<5) mm LAB RESULTS Hematology Result Type Result Value Relevant Reference Interpretation Date Range HGB 8.9 g/dL Males: 14.0 - 18.0 Low September 29, 2021 g/dL Females: 12.0 - 16.0 g/dL Hemoglobin x 3 26.7 % Male: 14.0 - 18.0 Low September 29, 2021 g/dL; Female: 12.0-16.0 g/dL HGB 9.3 g/dL Males: 14.0 - 18.0 Low October 06, 2021 g/dL Females: 12.0 - 16.0 g/dL Hemoglobin x 3 27.9 % Male: 14.0 - 18.0 Low October 06, 2021 g/dL; Female: 12.0-16.0 g/dL HGB 9.8 g/dL Males: 14.0 - 18.0 Low October 13, 2021 g/dL Females: 12.0 - 16.0 g/dL Hemoglobin x 3 29.4 % Male: 14.0 - 18.0 Low October 13, 2021 g/dL; Female: 12.0-16.0 g/dL HGB 9.9 g/dL Males: 14.0 - 18.0 Low October g/dL Females: 12.0 - 16.0 g/dL RBC 3.03 mill/mcL Males: 4.70 - 6.10 Low October mill/mcL Females: 4.20 - 5.40 mill/mcL Transferrin Sat. 20 % 20-55% - October 20, 2021 (Calc) WBC (No Diff) 7.51 1000/mcL 4.8-10.8 thous/mcL - October 20, 2021 Hemoglobin x 3 29.7 % Male: 14.0 - 18.0 Low October g/dL; Female: 12.0-16.0 g/dL TIBC 233 mcg/dL 185-515 mcg/dL - October 20 UIBC (Calc) 187 mcg/dL 155-355 mcg/dL - October 20 Platelets 184 1000/mcL 589-715 6675/mcL - October 20, 2021 Iron 46 mcg/dL Females: 30-160 - October 20 mcg/dL Males: 45-160 mcg/dL RDW 17.5 % No Reference range High October provided MCHC 30.3 g/dL 30 - 36 g/dL - October 20, 2021 MCH 32.7 pg 27 - 31 pg/cell High October 20 HCT 32.8 % Males: 42 - 52% Low October 20 Females: 37 - 47% Metabolic/Renal Result Type Result Value Relevant Reference Interpretation Date Range Potassium 5.7 mEq/L 3.5-5.1 mEq/L High September 29, 2021 URR, Calc 71 % 65 - 80% - October 20, 2021 Bicarbonate 26 mEq/L 22-29 mEq/L - October 20, 2021 Chloride 98 mEq/L 96-108 mEq/L - October 20, 2021 Potassium 5.0 mEq/L 3.5-5.1 mEq/L - October 20 Sodium 135 mEq/L 136-145 mEq/L Low October 20 BUN, Post 11 mg/dL 6-19 mg/dL - October 20, 2021 BUN/Creat Ratio 7.3 10-20 Low October 20 Creatinine, Serum 5.24 mg/dL 0.6-1.3 mg/dL High October BUN 38 mg/dL 6-19 mg/dl High October 20, 2021 HD Adequacy Result Type Result Value Relevant Reference Interpretation Date Range spKt/V (Daugirdas 1.48 No Reference range Normal 2021 II) provided eKt/V ([place]all) 1.29 No Reference range Normal Oct us2021 provided Bone/Mineral Result Type Result Value Relevant Reference Interpretation Date Range Phosphorus 2.9 mg/dL 2.6-4.5 mg/dL - October 20 2 Calcium, Total 9.5 mg/dL 8.4-10.2 mg/dL - October 20, 2021 Corrected Ca x P 28 < 55 - October 20, 2021 Product Ca x P Product 28 < 55 - October 20 Liver/Nutrition Result Type Result Value Relevant Reference Interpretation Date Range A/G Ratio 1.3 1.0-2.0 - October 20, 2021 Globulin (Calc) 3.0 g/dL 1.0 - 2.0 - October 20 022 Albumin (BCG) 3.8 g/dL 3.5-5.2 g/dL - October 20 2 Total Protein 6.8 g/dL 6.0-8.5 g/dL - October 20 2 Infectious Diseases Result Type Result Value Relevant Reference Interpretation Date Range Hep B Surface Ab 993 mIU/mL < 10 mIU/mL, Non- - Maruar 2021 (anti-HBs) Immune Hep B core Ab Negative Negative - March 24 Total (anti-HBc) Hep B Surface Ag Negative Negative - October 20, 2021 (HBsAg) DIALYSIS PRESCRIPTION Conventional Hemodialysis Data Element Value Order Date/Time August 13, 2021 Frequency 3X Week Treatment Days MonWedFri Dialyzer [id number] Optiflux Treatment Time (Total Minutes) 240 min Blood Flow Rate (mL/min) 400 mL/min Dialysate Flow Rate Manual 800 Estimated Dry Weight 109 kg Dialysate Concentrate 2.0 K, 2.5 Ca, 1.0 Mg, 100 D extrose (G2251) Sodium (mEq/L) 138 meq/L Bicarb Machine Setting (mEq/L) 34 meq/L Dialysis Access Hemodialysis-AV Fistula-Rangel dard, Left Upper Arm, Other/Unknown Arterial Needle Size 15g1 Venous Needle Size 15g1 IMMUNIZATIONS Vaccine Date Dose Route Status Moderna COVID-19 January 29, 2021 0.25 mL Intramuscular C ompleted Vaccine, Booster HEPLISAV-B, series 4 of January 04, 2021 20.0 mcg Intramuscu lar Completed 4 FLUZONE High-Dose December 18, 2020 0.7 mL Intramuscular C ompleted Quadrivalent HEPLISAV-B, series 3 of November 09, 2020 20.0 mcg Intramuscul ar Completed 4 HEPLISAV-B, series 2 of October 12, 2020 20.0 mcg Intramuscular Completed 4 HEPLISAV-B, series 1 of September 07, 2020 20.0 mcg Intramuscular Completed 4 Moderna COVID-19 May 11, 2020 0.5 mL Intramuscular C ompleted Vaccine, Dose 2 of 2 Moderna COVID-19 April 17, 2020 0.5 mL Intramuscular Co mpleted Vaccine, Dose 1 of 2 FXHFWPU-D-UUSSN, series October 30, 2019 40.0 mcg Intramuscul ar Completed 4 of 4 LQMLDSE-O-PMGIG, series July 03, 2019 40.0 mcg Intramuscula r Completed 3 of 4 XNSPXYP-K-CTSDK, series June 03, 2019 40.0 mcg Intramuscula r Completed 2 of 4 EZUOYBD-I-ZCJCX, series May 03, 2019 40.0 mcg Intramusc ular Completed 1 of 4 TRANSPLANT WAITLIST STATUS No Information on Transplant Waitlist Status ADVANCE DIRECTIVES Directive Description Ordered By Effective Date Resuscitation status Full Code Herman Figueredo Oct 21 2 DIALYSIS TREATMENTS Conventional Hemodialysis Date Pre-Treatment Post-Treatment Duration BFR Dialysate Dialyzer Dialysis Meds Vitals Vitals (hr) (mL/min) Access Admin October Weight 112.50 Weight 108.40 02:58:00 410 2.0 K, 180nre Hemodial ysis-AV Fistula-Standard, Left Upper Arm, Other/Unknown Heparin Sodium (Porcine) 1,000 Units/mL Systemic; 2000units,Intravenous - push 04, kg kg 2.5 Ca, Optiflux 2021 1.0 Mg, 100 Dextrose (N2251) Blood Pressure-sitting 93/41 mmHg Blood Pressure-sitting 11 8/56 mmHg Blood Pressure-standing 91/46 mmHg Blood Pressure-standing 114/54 mmHg Heart Rate 76 beats per Heart Rate 62 beats per minute minute Respiratory Rate 18 breaths per Respiratory Rate 16 breaths per minute minute Temperature 96.8 deg. F Temperature 97.8 deg. F October Weight 110.40 Weight 107.80 04:01:00 410 2.0 K, 180nre Hemodial ysis-AV Fistula-Standard, Left Upper Arm, Other/Unknown Doxercalciferol (Hectorol); 5mcg,Intravenous - push 05, kg kg 2.5 Ca, Optiflux Heparin S odium (Porcine) 1,000 Units/mL Systemic; 2000units,Intravenous - push 2022 1.0 Mg, Heparin Sodi um (Porcine) 1,000 Units/mL Systemic; 1000units,Intravenous - push 100 Dextrose (G2251) Blood Pressure-sitting 93/46 mmHg Blood Pressure-sitting 11 7/37 mmHg Blood Pressure-standing 106/47 mmHg Blood Pressure-standing 117/29 mmHg Heart Rate 90 beats per Heart Rate 73 beats per minute minute Respiratory Rate 16 breaths per Respiratory Rate 16 breaths per minute minute Temperature 95.8 deg. F Temperature 97.0 deg. F October Weight 112.30 Weight 109.30 04:01:00 410 2.0 K, 180nre Hemodial ysis-AV Fistula-Standard, Left Upper Arm, Other/Unknown Doxercalciferol (Hectorol); 5mcg,Intravenous - push 08, kg kg 2.5 Ca, Optiflux Etelcalce tide (Parsabiv); 10mg,Intravenous - push 2022 1.0 Mg, Heparin Sodi um (Porcine) 1,000 Units/mL Systemic; 1000units,Intravenous - push 100 Heparin Sodium (Porcine) 1,000 Units/mL Systemic; 2000units,Intravenous - push Dextrose Iron Sucros e (Venofer); 50mg,Intravenous - push (G2251) Blood Pressure-sitting 84/46 mmHg Blood Pressure-sitting 10 1/52 mmHg Blood Pressure-standing 101/52 mmHg Blood Pressure-standing 110/43 mmHg Heart Rate 101 beats per Heart Rate 60 beats per minute minute Respiratory Rate 16 breaths per Respiratory Rate 16 breaths per minute minute Temperature 97.0 deg. F Temperature 98.0 deg. F
--- OUTSIDE RECORDS SUMMARY | 2021-10-27 05:40 | XMS_ITS | Encounter Summary ---
:1945 Author Organization [place] Address [facility] [place] [address] Care Team Providers Name Role Phone Liban Leos Primary Care Provider Ernie Pompa MD Unavailable Reason for Referral Care Coordination (Routine: Next available opening) - Pending Review Specialty Diagnoses / Procedures Referred By Contact Refer red To Contact Diagnoses Other specified counseling Liban Leos [address] [place] [address] Referral ID Status Reason Start Date Expiration Date Visits V isits Requested Authorized [id number] Pending 10/12/2021 10/12/2022 1 1 Review Encounter Details Date Type Department Care Team Description 10/12/2021 Orders Only [facility] [address] Le[address] rd L Other specified Care Coordination [address] counseling [address] [place] [address] [place] [address] Social History Tobacco Use Types Packs/Day Years [...] have Coronavirus/COVID-19? 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
--- OUTSIDE RECORDS SUMMARY | 2021-10-27 05:41 | XMS_ITS | Encounter Summary ---
:1945 Author Organization [facility] Address [address] [place] [address] Care Team Providers Name Role Phone Unavailable Primary Care Provider Unavailable Encounter Details Date Type Department Care Team Description 08/18/2021 Orders Only [facility] Ernie Guzmán MD [address] [place] [id number] [place], [place] [phone] (Wo rk) Social History Tobacco Use Types Packs/Day Years Used Date Smoking Tobacco: Unknown Comments: Smoking History Info:Patient n ot screened Sex Assigned at Date Recorded Not on file documented as of this encounter Plan of Treatment Not on filedocumented as of this encounter Procedures Procedure Name Priority Date/Time Associated Diagnosis Comme nts HD KINETICS Routine 08/18/2021 Results for thi s procedure are i n the results section . POST CHEMISTRY Routine 08/18/2021 Results for t his procedure are i n the results section . IMMUNO CHEMISTRY Routine 08/18/2021 Results for this procedure are i n the results section . HEMATOLOGY Routine 08/18/2021 Results for thi s procedure are i n the results section . CHEMISTRY Routine 08/18/2021 Results for thi s procedure are i n the results section . CHEMISTRY Routine 08/18/2021 Results for thi s procedure are i n the results section . SPECTRA [facility] LAB RESULTS Routine 08/18/2021 Resul ts for this procedure are i n the results section . documented in this encounter Results Spectra [facility] Lab Results (08/18/2021) P athologist Signature eNPCR 0.85 [facility] eKt/V 1.17 [facility] ([place]) spKt/V 1.34 [facility] (Daugirdas II) PCR 69.42 [facility] nPCR_HD 0.92 [facility] eKt/V Gotch 1.21 [facility] eKdrt/V 1.21 [facility] spKt/V Gotch 1.39 [facility] Specimen (Source) Anatomical Location Collection Method / Collectio n Time Received Time / Laterality Volume 08/18/2021 08/18/2021 [facility] Ordering Provider LAB BLOOD ORDERABLES Performing Organization Address City/[facility]/ZIP Code Phon e Number [facility] HD KINETICS (08/18/2021) P athologist Signature % Urea 67 65 - 80 % APS SPECTRA Reduction [facility] Specimen (Source) Anatomical Collection Method Collection Time Re ceived Time Location / / Volume Laterality 08/18/2021 08/20/2021 12:5 8 AM CDT Resulting Agency Comment Specimen source: Plasma Ernie Pompa MD LAB BLOOD ORDERABLES Performing Organization Address [facility]/ZIP Code Phon e Number APS SPECTRA [facility] POST CHEMISTRY (08/18/2021) P athologist Signature BUN Post 17 6 - 19 APS SPECTRA Dialysis mg/dL [facility] Specimen (Source) Anatomical Collection Method Collection Time Re ceived Time Location / / Volume Laterality 08/18/2021 08/20/2021 12:5 8 AM CDT Narrative APS SPECTRA [facility] - 08/20/2021 Unless otherwise specified, test(s) performed at: [facility], [address] [place] [address] WATER PUMP OPERATOR: Alec Payan M.D. For any questions, please call customer service at FREQUENCY:MONTHLY Resulting Agency Comment Specimen source: Plasma Ernie Pompa MD LAB BLOOD ORDERABLES Performing Organization Address City/[facility]/ZIP Code Phon e Number APS SPECTRA [facility] (ABNORMAL) HEMATOLOGY (08/18/2021) Analysis Performed At Patho logist Time Signature WBC 6.90 4.80 - APS SPECTRA 10.80 [facility] 1000/mcL RBC 2.73 (L) 4.70 - APS SPECTRA 6.10 [facility] mill/mcL Hemoglobin 9.4 (L) 14.0 - APS SPECTRA 18.0 g/dL [facility] Hemoglobin x 3 28.2 (L) 42.0 - APS SPECTRA 54.0 % [facility] Hematocrit 31.0 (L) 42.0 - APS SPECTRA 52.0 % [facility] MCV 114 (H) 80 - 100 APS SPECTRA fl [facility] MCH 34.4 (H) 27.0 - APS SPECTRA 31.0 pg [facility] MCHC 30.3 30.0 - APS SPECTRA 36.0 g/dL [facility] RDW 18.4 (H) 11.5 - APS SPECTRA 14.5 % [facility] Platelets 101 (L) 130 - 400 APS SPECTRA 1000/mcL [facility] Specimen (Source) Anatomical Collection Method Collection Time Re ceived Time Location / / Volume Laterality 08/18/2021 08/19/2021 8:14 PM CDT Narrative APS SPECTRA [facility] - 08/20/2021 Unless otherwise specified, test(s) performed at: [facility], [address] [place] [address] WATER PUMP OPERATOR: Alec Payan M.D. For any questions, please call customer service at FREQUENCY:MONTHLY Resulting Agency Comment Specimen source: Blood Ernie Pompa MD LAB BLOOD ORDERABLES Performing Organization Address City/[facility] Phon e Number APS SPECTRA [facility] (ABNORMAL) Spectrae Chemistry (08/18/2021) P athologist Signature PTH 766 (H) 16 - 80 APS SPECTRA pg/mL [facility] Specimen (Source) Anatomical Collection Method Collection Time Re ceived Time Location / / Volume Laterality 08/18/2021 08/19/2021 8:21 PM CDT Narrative APS SPECTRA [facility] - 08/20/2021 Unless otherwise specified, test(s) performed at: [facility], [address] [place] [address] WATER PUMP OPERATOR: Alec Payan M.D. For any questions, please call customer service at FREQUENCY:MONTHLY Resulting Agency Comment Specimen source: Plasma Ernie Pompa MD LAB BLOOD ORDERABLES Performing Organization Address City/[facility] Phon e Number APS SPECTRA [facility] (ABNORMAL) Spectrae Chemistry (08/18/2021) Patholo gist Method Time Signature BUN 52 (H) 6 - 19 APS SPECTRA mg/dL [facility] Creatinine 5.80 (H) 0.60 - APS SPECTRA 1.30 mg/dL [facility] BUN/Creatinine 9.0 (L) 10.0 - APS SPECTRA Ratio 20.0 [facility] Sodium 135 (L) 136 - 145 APS SPECTRA mEq/L [facility] Potassium 5.8 (H) 3.5 - 5.1 APS SPECTRA mEq/L [facility] Chloride 96 96 - 108 APS SPECTRA mEq/L [facility] Bicarbonate 23 22 - 29 APS SPECTRA (CO2) mEq/L [facility] Calcium 8.7 8.4 - 10.2 APS SPECTRA mg/dL [facility] Corrected 9.0 8.4 - 10.2 APS SPECTRA Calcium mg/dL [facility] Comment: Corrected Calcium is not equivalent to m easured Ionized Calcium. Phosphorus 4.4 2.6 - 4.5 mg/dL APS SPECTRA [facility] Calcium Phosphorus Product 38 0 - 54 APS SPECTRA [facility] Calcium Phosporus Product, Cor 40 0 - 54 APS SPECTRA [facility] Total Protein 6.8 6.0 - 8.5 g/dL APS SPECTRA [facility] Albumin 3.6 3.5 - 5.2 g/dL APS SPECTRA [facility] Globulin, Total 3.2 2.0 - 4.0 g/dL APS SPECT RA [facility] A/G Ratio 1.1 1.0 - 2.0 APS SPECTRA [facility] Iron 86 45 - 160 mcg/dL APS SPECTRA [place] [facility] UIBC 184 155 - 355 mcg/dL APS SPECTRA K [facility] TIBC 270 185 - 515 mcg/dL APS SPECTRA K [facility] Iron Saturation (TSat) 32 20 - 55 % APS SPE CTRA [facility] Specimen (Source) Anatomical Collection Method Collection Time Re ceived Time Location / / Volume Laterality 08/18/2021 08/19/2021 6:50 PM CDT Narrative APS SPECTRA [facility] - 08/20/2021 Unless otherwise specified, test(s) performed at: [facility], [address] [place] [id number] WATER PUMP OPERATOR: Alec Payan M.D. For any questions, please call customer service at FREQUENCY:MONTHLY Resulting Agency Comment Specimen source: Serum Ernie Pompa MD LAB BLOOD ORDERABLES Performing Organization Address City/State/ZIP Code Phon e Number APS SPECTRA [facility] IMMUNO CHEMISTRY (08/18/2021) P athologist Signature Hep B Surface Negative Negative APS SPECTRA Ag [facility] Specimen (Source) Anatomical Collection Method Collection Time Re ceived Time Location / / Volume Laterality 08/18/2021 08/19/2021 6:50 PM CDT Narrative APS SPECTRA [facility] - 08/19/2021 Unless otherwise specified, test(s) performed at: [facility], [address] [place] [address] WATER PUMP OPERATOR: Alec Payan M.D. For any questions, please call customer service at FREQUENCY:MONTHLY Resulting Agency Comment Specimen source: Serum Ernie Pompa MD LAB BLOOD ORDERABLES Performing Organization Address City/State/ZIP Code Phon e Number APS SPECTRA [facility] documented in this encounter Visit Diagnoses Not on filedocumented in this encounter
--- OUTSIDE RECORDS SUMMARY | 2021-10-27 05:41 | XMS_ITS | Encounter Summary ---
:1945 Author Organization [place] Address [facility] [place] [address] Care Team Providers Name Role Phone Unavailable Primary Care Provider Unavailable Encounter Details Date Type Department Care Team Description 04/07/2019 Records - [facility] [address] [place] [id number] [place], [place] [phone] [id number] Social History Tobacco Use Types Packs/Day Years Used Date Never Assessed Sex Assigned at Date Recorded Not on file documented as of this encounter Plan of Treatment Not on filedocumented as of this encounter Procedures Procedure Name Priority Date/Time Associated Diagnosis Comme nts BASIC METABOLIC Routine 04/08/2019 7:45 AM Result s for this PANEL INFORMATION TECHNOLOGY CONSULTANT procedure are i n the results section. CBC WITH PLATELETS Routine 04/08/2019 7:45 AM Res ults for this INFORMATION TECHNOLOGY CONSULTANT procedure are i n the results section. documented in this encounter Results (ABNORMAL) Basic metabolic panel (04/08/2019 7:45 AM INFORMATION TECHNOLOGY CONSULTANT) [facility] Method Time Signature Sodium 137 136 - 145 04/08/2019 HEALTH mmol/L 10:53 AM [facility] Potassium 5.2 (H) 3.5 - 5.0 04/08/2019 [facility]ALTH mmol/L 10:53 AM [facility] Chloride 102 98 - 107 04/08/2019 [facility]ALTH mmol/L 10:53 AM [facility] Carbon Dioxide 22 22 - 31 04/08/2019 [facility] (CO2) mmol/L 10:53 AM [facility] Anion Gap 13 5 - 18 04/08/2019 [facility] mmol/L 10:53 AM [facility] Glucose 209 (H) 70 - 125 04/08/2019 [facility]ALTH mg/dL 10:53 AM [facility] Calcium 10.3 8.5 - 10.5 04/08/2019 [facility]ALTH mg/dL 10:53 AM [facility] Urea Nitrogen 101 (H) 8 - 28 04/08/2019 [facility]ALTH mg/dL 10:53 AM [facility] Creatinine 3.66 (H) 0.70 - 04/08/2019 [facility] 1.30 mg/dL 10:53 AM [facility] GFR Estimate If 20 (L) >60 04/08/2019 HEALTH Black mL/min/1.7 10:[address] LABORATORY GFR Estimate 16 (L) >60 04/08/2019 HEALTH mL/min/1.7 10:[address] LABORATORY Specimen Anatomical Collection Method / Collection Time Recei annie Time (Source) Location / Volume Laterality Blood specimen STRUCTURE OF RIGHT Venipuncture / 04/08/2019 7:45 (specimen) UPPER LIMB / Unknown AM INFORMATION TECHNOLOGY CONSULTANT 10:22 AM INFORMATION TECHNOLOGY CONSULTANT Unknown Narrative [facility] - 04/08/2019 10:53 AM INFORMATION TECHNOLOGY CONSULTANT Fasting Glucose reference range is 70-99 mg/dL per [place] [employer] (ADA) maryan marrero. Alison Hollins LAB - BLOOD ORDERABLES Performing Organization Address City/State/ZIP Code Phon e Number [facility] [place] [address] [id number] [place] [address] [place] [id number], [facility] (ABNORMAL) CBC with platelets (04/08/2019 7:45 AM INFORMATION TECHNOLOGY CONSULTANT) [facility] gist Method Time Signature WBC 5.2 4.0 - 11.0 04/08/2019 [facility] thou/uL 10:32 AM [facility] RBC Count 2.52 (L) 4.40 - 04/08/2019 [facility] 6.20 10:32 AM [facility] Hemoglobin 7.9 (L) 14.0 - 04/08/2019 [facility] 18.0 g/dL 10:32 AM [facility] Hematocrit 25.2 (L) 40.0 - 04/08/2019 [facility] 54.0 % 10:32 AM [facility] MCV 100 80 - 100 04/08/2019 [facility] fL 10:32 AM [facility] MCH 31.3 27.0 - 04/08/2019 [facility] 34.0 pg 10:32 AM [facility] MCHC 31.3 (L) 32.0 - 04/08/2019 [facility] 36.0 g/dL 10:32 AM [facility] RDW 19.4 (H) 11.0 - 04/08/2019 [facility] 14.5 % 10:32 AM [facility] Platelet Count 140 140 - 440 04/08/2019 [facility]/uL 10:32 AM [facility] Mean Platelet 10.4 8.5 - 12.5 04/08/2019 HEALTH Volume fL 10:32 AM [facility] Specimen Anatomical Collection Method / Collection Time Recei annie Time (Source) Location / Volume Laterality Blood specimen STRUCTURE OF RIGHT Venipuncture / 04/08/2019 7:45 (specimen) UPPER LIMB / Unknown AM INFORMATION TECHNOLOGY CONSULTANT 10:22 AM INFORMATION TECHNOLOGY CONSULTANT Unknown Alison Hollins LAB - BLOOD ORDERABLES Performing Organization Address City/State/ZIP Code Phon e Number [place] [address] [facility] [address] [facility] documented in this encounter Visit Diagnoses Not on filedocumented in this encounter
--- OUTSIDE RECORDS SUMMARY | 2021-10-27 05:41 | XMS_ITS | Encounter Summary ---
:1945 Author Organization [facility] Address [address] [place] [address] Care Team Providers Name Role Phone Unavailable Primary Care Provider Unavailable Encounter Details Date Type Department Care Team Description 08/11/2021 Orders Only [facility] Ernie Guzmán MD [address] [place] [address] [place], [place] [phone] (Wo rk) Social History Tobacco Use Types Packs/Day Years Used Date Smoking Tobacco: Unknown Comments: Smoking History Info:Patient n ot screened Sex Assigned at Date Recorded Not on file documented as of this encounter Plan of Treatment Not on filedocumented as of this encounter Procedures Procedure Name Priority Date/Time Associated Diagnosis Comme nts HEMATOLOGY Routine 08/11/2021 Results for thi s procedure are in the resu lts section. documented in this encounter Results (ABNORMAL) HEMATOLOGY (08/11/2021) Analysis Performed At Patho logist Time Signature Hemoglobin 9.5 (L) 14.0 - [facility] 18.0 g/dL [facility] Hemoglobin x 3 28.5 (L) 42.0 - [facility] 54.0 % [facility] Specimen (Source) Anatomical Collection Method Collection Time Re ceived Time Location / / Volume Laterality 08/11/2021 08/12/2021 1:51 PM CDT Narrative [facility] - 08/12/2021 Unless otherwise specified, test(s) performed at: [facility], [address] [place] [id number] BOTTLE PACKER: Alec Payan M.D. For any questions, please call customer service at FREQUENCY:OTHER Resulting Agency Comment Specimen source: Blood Ernie Pompa MD LAB BLOOD ORDERABLES Performing Organization Address City/State/ZIP Code Phon e Number [facility] documented in this encounter Visit Diagnoses Not on filedocumented in this encounter
--- OUTSIDE RECORDS SUMMARY | 2021-10-27 05:41 | XMS_ITS | Encounter Summary ---
:1945 Author Organization [facility] Address [address] [place] [address] Care Team Providers Name Role Phone Unavailable Primary Care Provider Unavailable Encounter Details Date Type Department Care Team Description 10/13/2021 Treatment [facility] Ernie Guzmán MD [address] [place] [address] [place], [place] [phone] (Wo rk) Social History Tobacco Use Types Packs/Day Years Used Date Smoking Tobacco: Unknown Comments: Smoking History Info:Patient n ot screened Sex Assigned at Date Recorded Not on file documented as of this encounter Miscellaneous Notes Dialysis Note - Ernie Pompa MD - 10/13/2021 12:07 PM CDT Date: Oct 13, 2021 Patient Name: Shaun Ocampo : 1945 Chart #: [id number] Sex: M This patient was personally seen for a basic visit as part of routine weekly dialysis care. A reviewof the dialysis treatment, blood pressure, estimated dry weight and recent lab values was made. These were discussed with the patient and staff as necessary. LOBSTER MAN: Ernie Pompa MD LOCATION: [phone] SCHEDULE: M-W-F 2nd Shift ACCESS: EDW: kg. DIALYZER: HD DURATION: NEEDLE SIZE: ANTICOAG: BATH: QB: ml/min QD: ml/min Subjective Tolerating dialysis well. 10/13: Had GI bleeding on Monday, went to ER after dialysis, admitted at [facility], had 3u blood, EGDwithout obvious source, ASA stopped. Hgb to 10 prior to discharge from there, HGb pending today. Hisbreathing is baseline. His BP is low with treatment as usual but able to UF 4L today. 09/29/21: Continues to struggle with fluid gains. HE is quite SOB as has not been near EDW recently. BP runs low with treatment. He has significant valvular heart disease and mild RV dysfunction. Will need extra UF run tomorrow. Otherwise no new symptoms. 09/15/21: No new issues. Ongoing issues with fluid gains, was better last week but then had lower BP on Monday and did not get as much off and higher fluid gain over weekend again. Feels fluid in his mid-section and pushes up and makes it harder to breath. Not SOB at rest, only with exertion. No orthopnea. 08/25/21: He is essentially having the same problems with fluid gains. He feels he has some good days and bad days, overall not much changed. Has small ulcer on lateral ankle on R side that opens occasionally and it is open now but no fluid or blood or pus coming from it and not warm and he denies fevers or chills. He has increased SOB when fluid gains are the highest. Has intra-dialytic hypotension with UF goal >4L so max is about 4.0-4.4L per treatment. Talked about midodrine, but he prefers to hold off on this and do periodic extra UF treatments at [facility] rather than risk more hypotension post-tx with use of midodrine and additional UF during treatments. He has fistulagram last week, went well and access working well since. 08/11: Continues to have problems with fluid gains. we have spent considerable time discussing this, he is trying to work on this but can't seem to avoid large gains. Will go to [facility] for UF tomorrow, needs extra treatments every 2 weeks it looks like to maintain EDW. He does get SOB when >5K over dry weight in particular. 07/21/21: Continues to struggle with fluid gains, extra UF run scheduled tomorrow at [facility]. He does feel more SOB when fluid overloaded. No new symptoms otherwise, he is enjoying the nicer weather which allows him to do more activity and not sit at home and drink fluids which he thinks will help with IDWG's. 07/14/21: Continues to have high gains, unfortunately [facility] without staff to open tomorrow for extra runs which he had planned. He is fluid up, won't reach EDW today, but he had great sleep last night and actually feels best he's felt in a month today. BP continues to be low with aggressive UF, mayneed midodrine but discussed that lower fluid gains is beltran to success > midodrine for UF >4.5L. 06/30/21: Had EGD prior to HD on Monday, had anessthetic, nausea and low BP on treatment that day andminimal fluid removed so now significantly over dry weight. Feels better today, but still a little weak and nauseated. Was feeling great last week. 06/09/21: Feels better today, had steroid injections in knees yesterday at [facility]. To do PT as well. He pulled muscle in his lower arm on L side last week getting into car, hurt a lot but is improving. Fluid gains continue to be high, [facility] not open on this week, says he will do his best withlimiting salt/fluid. HE does feel SOB with exertion with extra fluid on, no orthopnea. 05/26/21: Has SOB when >5 Kg over dry weight, extra run last week at [facility] helped. Trying his best with fluid restriction. Knees are bothering him a lot, has appt with ortho coming up. No new symptoms otherwise. 05/05/21: He is tolerating Parsabiv, Ca in range, PTH still elevated. Fluid gains about the same. No new symptoms. 04/21/21: He went out to eat last night, had steak and fried breaded onions and was thirsty all night and thus IDWG higher and he has SOB this am. Set to 4.3L today, hopefully to EDW by Monday. He otherwise has no new symptoms. 04/14/21: Tolerating parsabiv, Ca under 10 now, fluid gains better recently and should reach EDW today. HE feels overall well. No open wounds on feet now. 03/24/21: Shaun feels well. He had extra run prior to xmas and ran WThF that week an got 0.8 Kg below his EDW and felt well with improved SOB. He has been closer to dry weight since then, but 5.3 available today and will get to about 1 Kg over dry today. He will likely need ongoing extra HD runs occasionally to maintain at dry weight and avoid hospitalization/pulmonary edema. He is doing what he says ishis absolute best he can do with fluid restriction. 03/10/21: He has been marching in place and increasing duration to try and gain endurance, feels this is helping. Fluid gains continue to be high, no chance of reaching EDW this week without an extra run and we discussed going to [facility] tomorrow for UF only run and he will do this if the time works. Ca high, calcitriol reduced. 03/03/21: He feels overall well. Nausea resolved off Sensipar. Ca is above 10 with this change, however. Phos slightly elevated despite binder. He is not taking Ca supplement or Vit D2/3. not taking tums. He is on calcitriol. HE is over dry weight, chronic issue, discussed again today, may need extra run at [facility] if can't get down over next week. He does have increase in SOB when he had >4-5L extra fluid on. 02/03/21: Nausea worsened, starts after dialysis but lasts sometimes through next day and he has vomited several times. No change in fluid gains, dialysis prescription, or other meds beside increase insensipar over time including recently up to 90mg. 01/20/21: He has no new symptoms. He has small blister on 2nd toe of R foot, not open or draining. Other wound on bottom of foot is healed completed. 01/13/21: Stable dialysis, no changes, he feels well and has no concerns. 12/30/20: Doing well overall, reaching EDW more frequently with improved wt gains to some degree. Has fatigued and nausea after HD, threw up twice, improved but not gone with increase in EDW previously. He has no GERD symptoms. No chest pain or SOB. Feels well otherwise. Foot wound healed. 12/09: When challenged, his BP was low and he felt unwell. EDW now at 109 Kg and not challenging, treatment went well on Monday and so far today he feels well and BP is adequate. His fluid gains have been a little better. He has upcoming appt with podiatry, but wound on toe is nearly all healed. 11/18/20: Doing well today, foot ulceration is improving, has podiatry appt later this month. Large fluid gains continue, hoping to get to EDW by end of week. No SOB. 11/11/20: COntinues to have high fluid gains but otherwise dialysis going well and he feels well. He had callous on R foot, now turned into ulceration and he has limited feeling. Will send to podiatry. 10/21/20: He feels well, dialysis going very well and he is pleased with how he feels and has no concerns. Ongoing issues with high fluid gains, he declines extra treatment or lengthening runs at this time but has no symptoms of fluid overload when over dry weight. 10/07/20: Added 30 minutes was not effective in tolerating higher fluid removal and we decided to go back to 4hrs and work harder on fluid restriction. He has no symptoms of fluid overload, carries it in lower body and not in lungs. not reaching EDW consistently but he does get there, gets behind on weekends. He feels well and has no symptoms on dialysis beside feeling wiped out for a couple hours after treatment. 09/23/20: No significant changes, but feels washed out after dialysis and still with high fluid gains.He accepts trial of extending HD time by 30 min. 09/09: He reports feeling very well currently, getting out to his garden and watering every day and this makes him feel really good. Fluid gains still high, but a little better and he stayed extra 30 min one day to get to EDW to avoid needing an extra treatment and he may get to his EDW again today or very close. No symptoms of fluid overload. Access working very well. 08/19: He is doing well today, no complaints. Fluid gains remain an issue. No further gross hematuria.No new symptoms. No CP, SOB. 08/05/20: Overall feels well. Still with high fluid gains, he has really hard time making changes andhas been more thirsty as he has been more active. No symptoms of fluid overload. Started sensipar and tolerating. Taking binders. 07/22/20: He had cysto and ureteroscopy yesterday, radiolucent stone found that crumbled but likely uric acid. Having some pain with urination and blood in urine after as expected. Otherwise feels ok. Will get close to EDW today if not there, has been having ongoing fluid gains that are too high that have been difficult to manage. 07/08: 3.4 Kg gain today, ?7 available, ok with staying extra 30 min on Monday if he feels well for additional UF. He has no SOB. Chronic edema. 07/01: Doing well, feels great. Big problem is fluid gains, discussed in great detail again today. 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 06/10: Doing well overall, no new complaints, no further blood in urine or symptoms. Gaining too muchfluid, not getting better, discussed this in detail today and discussed possible need to add time ifcan't reach EDW by end of week with current time consistently and if UFR >13 (which we are not allowing). 05/27/20: Overall doing very well. No more hematuria or pain. Had nl cysto, but CT shows possible bladder lesion and I will discuss with Dr. Hernandez of Urology next steps (repeat cysto with biopsy?). Fluid gains still too high, sensipar dose increased for high PTH and he is back on binder after being outfor a week (phos was slightly high again). Otherwise labs look excellent and BP is excellent and he feels well. 05/06: HD going well outside high fluid gains that continue. However, acute abd/groin pain on Monday and came off early. Had gross hematuria Monday. Went to Urgent care -> ER in [place] yesterday,CT with R hydro but no obstructive stone (passed one? not visible?). Still with blood in urine this am, but another few drops later and was clear, pain still there but improving. On Keflex for likely UTI, UA looked infected including Nitrites and Cx in process. 04/22: He is doing well and feels great. Still high IDWG's at times, better today and will reach EDW it looks like. 04/08: Just under a year on dialysis now and it is going well an he feels the best he's felt in years. Only major issues has been IDWG's and trouble staying at dry weight and he knows how to fix this. We discussed staying busy and avoiding sipping all day on water. 03/25: He feels great, doing very well with dialysis with no symptoms, compliant with treatment and access working well. Only concern is high IDWG's. He did well from Mon to Mon this week and he notes hekept himself busy and this really helps. We talked about trying to replicate what he did the last two days every time and dialysis would be essentially optimal at that point. Labs being drawn today. 03/04: He feels well, no complaints. Still with higher fluid gains, discussed again today. Phos improving with binder. 02/18: He has been having higher fluid gains, partially because of holiday but also just drinking toomuch fluids and we discussed this in detail today. Otherwise doing very well, BP adequate, no SOB orother new symptoms. 01/28: Shaun is doing really well, tolerating dialysis well, being very careful about any exposures to COVID. He has no symptoms today and feels well. We talked about phos, being more careful with diet,but he wants to wait on a binder this month and re-check next month but is willing to take if still above goal. 01/21: Shaun feels quite well, was out on 4 hough yesterday in the nice weather and has been trying to get some basic exercise doing a little walking around his property. He has had no symptoms during dialysis, BP is adequate, and he has denies CP, SOB, or muscle cramps. He does admit to drinking too much probably and we discussed working on fluid restriction. 01/07: NO complaints today, feels well, dialysis treatments without any issues and no cramping. 12/24: Shaun feels excellent and has no complaints. BP adequate, labs overall quite good, and he has no symptoms during of after HD. 12/03: Feeling well and has no complaints today. 11/19: He is doing really well, feels good and has improved mobility with less water weight and tolerating dialysis well. Discussed fluid restriction today, however, as gains have been high so that we can't challenge further and he still does have edema. 11/05: He feels excellent and is doing well overall with no new symptoms today, stable dialysis. 10/08: He feels well, but had minor fall when bending over, no injuries, has tray on his walker now so things don't fall. Continue to challenge EDW, pant size from 50 to 44! Feels better and better. 09/24: He had infiltration last week, dialyzed at [facility] on Sat and went well, access ok now. He feels really good, continue to challenge with UF and continues to drop weight. No symptoms with or after dialysis and BP has been adequate. 09/10: He has lost over 50 lbs since starting dialysis, all in fluid weight. Continue to challenge, wonders if we should slow down a little but he has had no dizziness, muscle cramps, or hypotension yet and still with mild edema. 08/27: Shaun is doing really well, no symptoms with dialysis, we continue to challenge with UF and drop his dry weight as we do this. His legs are much less swollen. 08/06: patient seen in person today. He is doing well, leg swelling continues to improve. HE has somechronic redness on legs, no pain or heat or fever. Labs look overall very good. 07/09: He is doing well. He still has edema in legs, BP does drop with UF and he is going to try holding BP meds prior to HD to see if more room for UF. He otherwise feels really good and much better than before initiating dialysis. 06/25: This visit today was done virtually with video during the COVID-19 pandemic. Shaun is doing well. He has same chronic cough as always. Edema is improving as we have been challenging EDW. Adequacy improving withincreasing needles size, but still not at goal yet. He has no other complaints today. 06/04: Tolerating HD well, advancing needles, adequacy improving as we do this, challenging EDW, and he feels overall well. 05/21: He continues to feel better and better, challenging EDW and this is going well, feels mobility is better and overall just feels better since starting dialysis. AVF working well, advancing needles next time. 05/15: He just started dialysis 2 weeks ago, started in hospital. AVF working well. I saw him in clinic previously, had progressive CKD. Tolerating HD well. He feels much better after starting dialysis. Appetite great. No SOB. BP low at start of treatment today, seemed like fluke, now stable and he has no symptoms. Advanced Practitioner Subjective: Review of Systems None reported. 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 nl effort Cardiovascular Regular rate. Regular rhythm. Edema - 1+ leg edema. unchanged Access - AVF intact with needles in place, good t/b and no aneurysms he has shallow ulceration on lateral R foot that is unchanged from last visit Medication List Medication Sig Start Date albuterol sulfate 2.5 mg/3 mL (0.083 %) solution for nebulization Inhale 3 ml as directed three times a day as needed allopurinol 100 mg tablet Take 1 tablet by mouth once a day as directed Aspir-81 (aspirin) 81 mg tablet,delayed release (DR/EC) Take 1 tablet by mouth once a day as directed atorvastatin 20 mg tablet Take 1 tablet once a day cholecalciferol (vitamin D3) 50 mcg (2,000 unit) tablet,chewable Take 1 tablet by mouth once a day ferrous sulfate 325 mg (65 mg iron) tablet,delayed release (DR/EC) Take 1 mg by mouth once a day ipratropium-albuterol 0.5 mg-3 mg(2.5 mg base)/3 mL solution for nebulization Inhale 3 ml as directed every six hours as needed lidocaine-prilocaine 2.5-2.5% cream metoprolol succinate 25 mg tablet extended release 24 hr Take 1/2 tablet by mouth once a day Renvela (sevelamer carbonate) 800 mg tablet Take 1 tablet by mouth three times a day with meals Triphrocaps (b complex with c 20-folic acid) 1 mg capsule Take 1 capsule by mouth once a day Allergy List Allergen Reaction Reaction Severity Onset Date lisinopril Cough Medications reviewed with changes as indicated below. Stop irbesartan BUN mg/dL 41 (09/22/21) 55 (08/30/21) 52 (08/18/21) 44 (07/21/21) 66 (06/23/21) UREA NITROGEN (MG/DL) IN SER/PLAS - POST DIALYSIS mg/dL 12 (09/22/21) 16 (08/30/21) 17 (08/18/21) 14 (07/21/21) 19 (06/23/21) URR % 71 (09/22/21) 71 (08/30/21) 67 (08/18/21) 68 (07/21/21) 71 (06/23/21) spKt/V Gotch 1.53 (09/22/21) 1.39 (08/18/21) 1.42 (07/21/21) 1.62 (05/21/21) 1.45 (05/19/21) eKdrt/V 1.33 (09/22/21) 1.21 (08/18/21) 1.24 (07/21/21) 1.41 (05/21/21) 1.26 (05/19/21) spKt/V (Daugirdas II) 1.4700 (09/22/21) 1.4900 (08/30/21) 1.3400 (08/18/21) 1.3700 (07/21/21) 1.4700 (06/23/21) HEMOGLOBIN (G/DL) IN BLOOD g/dL 9.3 (10/06/21) 8.9 (09/29/21) 9.4 (09/22/21) 9.1 (09/15/21) 9.1 (09/08/21) PLATELETS 1000/mcL 250 (09/22/21) 101 (08/18/21) 183 (07/21/21) 149 (05/19/21) 155 (04/21/21) IRON SATURATION % 32 (08/18/21) 36 (07/21/21) 31 (06/23/21) 38 (05/26/21) 35 (05/19/21) FERRITIN ng/mL 357 (09/22/21) 640 (06/23/21) 640 (05/21/21) 857 (03/24/21) 837 (02/24/21) ALBUMIN (G/DL) g/dL 3.7 (09/22/21) 3.6 (08/18/21) 3.5 (07/21/21) Sodium mEq/L 133 (09/22/21) 135 (08/18/21) 138 (07/21/21) POTASSIUM (MMOL/L) IN SER/PLAS mEq/L 5.7 (09/29/21) 6.3 (09/22/21) 5.8 (08/18/21) BICARBONATE (CO2) mEq/L 26 (09/22/21) 23 (08/18/21) 25 (07/21/21) 25 OH VITAMIN D ng/mL 56.0 (09/22/21) 38.3 (03/24/21) 37.9 (09/23/20) BUN/CREATININE (MASS RATIO) IN SER/PLAS 7.7 (09/22/21) 9.0 (08/18/21) 7.0 (07/21/21) CALCIUM mg/dL 9.2 (09/22/21) 8.9 (09/13/21) 8.6 (09/01/21) Calcium Phos Product 36 (09/22/21) 38 (08/18/21) 38 (07/21/21) CALCIUM (MG/DL) CORRECTED FOR ALBUMIN IN SER/PLAS mg/dL 9.4 (09/22/21) 9.0 (08/18/21) 9.0 (07/21/21) PHOSPHATE (MG/DL) IN SER/PLAS mg/dL 3.9 (09/22/21) 4.4 (08/18/21) 4.4 (07/21/21) IPTH pg/mL 722 (09/22/21) 851 (09/13/21) 810 (08/20/21) Vascular Access Assessment: Type of access: [id number] Surgeon - Lary GARDNER 08/2021: fistulagram at [facility] [place] with angioplasty of stenosis completed Impression and Plan Stable dialysis Repeat Hgb today after GI bleed No longer on ASA, PPI added to meds PCP follow-up on Monday Ernie Pompa MD [ Signed And locked electronically On 10/13/2021 at 12:08:58 PM ] Transcribed: Ernie Pompa ( 10/13/2021 ) External Note - Ernie Pompa MD - 10/13/2021 11:41 AM CDT Date: Oct 13, 2021 Patient Name: Shaun Ocampo : 1945 Chart #: [id number] Sex: M Patient has transitioned out of the following type of facility within the past 30 days: Discharging Facility: [facility] Patient caregiver is present? If yes, relationship of caregiver to the patient: Date of admission:10/08/2021 Reason for admission: GI bleed Date of discharge:10/11/2021 Discharge Diagnosis: Review of relevant procedures performed during admission (surgeries, cardiac, transfusions, etc): EGD Medication List Medication Sig Start Date albuterol sulfate 2.5 mg/3 mL (0.083 %) solution for nebulization Inhale 3 ml as directed three times a day as needed allopurinol 100 mg tablet Take 1 tablet by mouth once a day as directed Aspir-81 (aspirin) 81 mg tablet,delayed release (DR/EC) Take 1 tablet by mouth once a day as directed atorvastatin 20 mg tablet Take 1 tablet once a day cholecalciferol (vitamin D3) 50 mcg (2,000 unit) tablet,chewable Take 1 tablet by mouth once a day ferrous sulfate 325 mg (65 mg iron) tablet,delayed release (DR/EC) Take 1 mg by mouth once a day ipratropium-albuterol 0.5 mg-3 mg(2.5 mg base)/3 mL solution for nebulization Inhale 3 ml as directed every six hours as needed lidocaine-prilocaine 2.5-2.5% cream metoprolol succinate 25 mg tablet extended release 24 hr Take 1/2 tablet by mouth once a day Renvela (sevelamer carbonate) 800 mg tablet Take 1 tablet by mouth three times a day with meals Triphrocaps (b complex with c 20-folic acid) 1 mg capsule Take 1 capsule by mouth once a day Allergy List Allergen Reaction Reaction Severity Onset Date lisinopril Cough Pantoprazole added to meds He had 3u of blood Discharge med list was reviewed and reconciled with the pre-admit med list. New in-center meds were considered (antibiotics, ONS, etc): No in-center meds initiated. Dialysis related therapy interruptions were considered (Micera,Venofer,ONS,etc): There were no dialysis related interruptions. Target Weight: The patient's post discharge target weight was unchanged from their pre-admit target weight. Physical Exam: Lungs: Clear. Heart: RRR. Edema: Trace. Did the patient have tests ordered during admission that were not completed? No outstanding tests. If yes, please list: Was patient education specific to discharge diagnosis provided? Did the patient's access plan change as a result of this admission? Did the patient's advanced care plan change as a result of this admission? No changes in advanced care plan. Did the patient have any follow up appointments scheduled post discharge? Yes the patient has followup appts. If yes, what is the status of those appts? No concerns with adherence with follow up appts. Has PCP follow-up on Monday. Repeat Hgb at HD today 10/13 Ernie Pompa MD [ Signed And locked electronically On 10/13/2021 at 11:43:14 AM ] Transcribed: Ernie Pompa ( 10/13/2021 ) documented in this encounter Plan of Treatment Not on filedocumented as of this encounter Visit Diagnoses Not on filedocumented in this encounter
--- OUTSIDE RECORDS SUMMARY | 2021-10-27 05:41 | XMS_ITS | Encounter Summary ---
:1945 Author Organization [facility] Address [address] [place] [address] Care Team Providers Name Role Phone Unavailable Primary Care Provider Unavailable Encounter Details Date Type Department Care Team Description 09/22/2021 Orders Only [facility] O f Ernie Guzmán MD [address] [place] [address] [place], [place] [phone] (Wo rk) Social History Tobacco Use Types Packs/Day Years Used Date Smoking Tobacco: Unknown Comments: Smoking History Info:Patient n ot screened Sex Assigned at Date Recorded Not on file documented as of this encounter Plan of Treatment Not on filedocumented as of this encounter Procedures Procedure Name Priority Date/Time Associated Diagnosis Comme nts HD KINETICS Routine 09/22/2021 Results for thi s procedure are i n the results section . SPECIAL CHEMISTRY Routine 09/22/2021 Results fo r this procedure are i n the results section . POST CHEMISTRY Routine 09/22/2021 Results for t his procedure are i n the results section . IMMUNO CHEMISTRY Routine 09/22/2021 Results for this procedure are i n the results section . HEMATOLOGY Routine 09/22/2021 Results for thi s procedure are i n the results section . CHEMISTRY Routine 09/22/2021 Results for thi s procedure are i n the results section . CHEMISTRY Routine 09/22/2021 Results for thi s procedure are i n the results section . SPECTRA [facility] LAB RESULTS Routine 09/22/2021 Resul ts for this procedure are i n the results section . documented in this encounter Results Spectra [facility] Lab Results (09/22/2021) P athologist Signature spKt/V Gotch 1.53 [facility] eKt/V Gotch 1.33 [facility] eKdrt/V 1.33 [facility] spKt/V 1.47 [facility] (Daugirdas II) eKt/V 1.28 [facility] ([place]) PCR 61.18 [facility] eNPCR 0.74 [facility] nPCR_HD 0.78 [facility] Specimen (Source) Anatomical Location Collection Method / Collectio n Time Received Time / Laterality Volume 09/22/2021 09/22/2021 [place] Ordering Provider LAB BLOOD ORDERABLES Performing Organization Address City/State/ZIP Code Phon e Number [facility] HD KINETICS (09/22/2021) athologist Signature % Urea 71 65 - 80 % APS SPECTRA Reduction [facility] Specimen (Source) Anatomical Collection Method Collection Time Re ceived Time Location / / Volume Laterality 09/22/2021 09/24/2021 4:03 PM CDT Narrative APS SPECTRA [facility] - 09/24/2021 Unless otherwise specified, test(s) performed at: [facility], [address] [place] [address], [place] [address] HOISTING ENGINE OPERATOR: Alhaji Noguera M.D., Ph.D For any questions, please call customer service at FREQUENCY:MONTHLY Resulting Agency Comment Specimen source: Plasma Ernie Pompa MD LAB BLOOD ORDERABLES Performing Organization Address City/[facility]/ZIP Code Phon e Number APS SPECTRA [facility] SPECIAL CHEMISTRY (09/22/2021) P athologist Signature Vitamin D, 56.0 30.0 - APS SPECTRA 25-OH, Total 100.0 [facility] ng/mL Comment: Please Note: ??Effective March 28, 2021 , the methodology for this test has changed to the [employer]ELL[employer] meth od Specimen (Source) Anatomical Collection Method Collection Time Re ceived Time Location / / Volume Laterality 09/22/2021 09/24/2021 7:14 PM CDT Resulting Agency Comment Specimen source: Serum Ernie Pompa MD LAB BLOOD BANK TEST ORDERABL ES Performing Organization Address City/State/ZIP Code Phon e Number APS SPECTRA [facility] (ABNORMAL) Spectrae Chemistry (09/22/2021) [facility] gist Method Time Signature BUN 41 (H) 6 - 19 APS SPECTRA mg/dL [facility] Creatinine 5.31 (H) 0.60 - APS SPECTRA 1.30 mg/dL [facility] BUN/Creatinine 7.7 (L) 10.0 - APS SPECTRA Ratio 20.0 [facility] Sodium 133 (L) 136 - 145 APS SPECTRA mEq/L [facility] Potassium 6.3 (H) 3.5 - 5.1 APS SPECTRA mEq/L [facility] Chloride 96 96 - 108 APS SPECTRA mEq/L [facility] Bicarbonate 26 20 - 31 APS SPECTRA (CO2) mEq/L [facility] Comment: Please note change in reference range. Calcium 9.2 8.7 - 10.4 mg/dL APS SPECTRA [facility] Comment: Please note change in reference range. Corrected Calcium 9.4 8.7 - 10.4 mg/dL APS S PECTRA [facility] Comment: Corrected Calcium is not equivalent to m easured Ionized Calcium. Phosphorus 3.9 2.6 - 4.5 mg/dL APS SPECTRA [facility] Calcium Phosphorus Product 36 0 - 54 APS SPECTRA [facility] Calcium Phosporus Product, Cor 37 0 - 54 APS SPECTRA [facility] Alkaline Phosphatase 141 (H) 40 - 129 U/L APS SP ECTRA [facility] Total Protein 6.4 6.0 - 8.5 g/dL APS SPECTRA [facility] Albumin 3.7 3.5 - 5.2 g/dL APS SPECTRA [facility] [place] Globulin, Total 2.7 2.0 - 4.0 g/dL APS SPECT RA [facility] A/G Ratio 1.4 1.0 - 2.0 APS SPECTRA [facility] Magnesium 1.9 1.6 - 2.6 mg/dL APS SPECTRA [facility] Ferritin 357 (H) 22 - 322 ng/mL APS SPECTRA [facility] [place] Iron 47 45 - 160 mcg/dL APS SPECTRA [facility] UIBC 205 155 - 355 mcg/dL APS SPECTRA K [facility] TIBC 252 185 - 515 mcg/dL APS SPECTRA K [facility] Iron Saturation (TSat) 19 (L) 20 - 55 % APS SPE CTRA [facility] Specimen (Source) Anatomical Collection Method Collection Time Re ceived Time Location / / Volume Laterality 09/22/2021 09/24/2021 7:14 PM CDT Narrative APS SPECTRA [facility] - 09/24/2021 Unless otherwise specified, test(s) performed at: [facility], [address] [place] [address], [place] [address] HOISTING ENGINE OPERATOR: Alhaji Noguera M.D., Ph.D For any questions, please call customer service at FREQUENCY:MONTHLY Resulting Agency Comment Specimen source: Serum Ernie Pompa MD LAB BLOOD ORDERABLES Performing Organization Address [facility] Phon e Number APS SPECTRA [facility] POST CHEMISTRY (09/22/2021) P athologist Signature BUN Post 12 6 - 19 APS SPECTRA Dialysis mg/dL [facility] Specimen (Source) Anatomical Collection Method Collection Time Re ceived Time Location / / Volume Laterality 09/22/2021 09/24/2021 4:03 PM CDT Narrative APS SPECTRA [facility] - 09/24/2021 Unless otherwise specified, test(s) performed at: [facility], [address] [place] [address] HOISTING ENGINE OPERATOR: Alhaji Noguera M.D., Ph.D For any questions, please call customer service at FREQUENCY:MONTHLY Resulting Agency Comment Specimen source: Plasma Ernie Pompa MD LAB BLOOD ORDERABLES Performing Organization Address [facility] Phon e Number APS SPECTRA [facility] (ABNORMAL) HEMATOLOGY (09/22/2021) Analysis Performed At Patho logist Time Signature WBC 8.96 4.80 - APS SPECTRA 10.80 [facility] 1000/mcL RBC 2.66 (L) 4.70 - APS SPECTRA 6.10 [facility] mill/mcL Hemoglobin 9.4 (L) 14.0 - APS SPECTRA 18.0 g/dL [facility] Hemoglobin x 3 28.2 (L) 42.0 - APS SPECTRA 54.0 % [facility] Hematocrit 31.4 (L) 42.0 - APS SPECTRA 52.0 % [facility] MCV 118 (H) 80 - 100 APS SPECTRA fl [facility] MCH 35.3 (H) 27.0 - APS SPECTRA 31.0 pg [facility] MCHC 29.9 (L) 30.0 - APS SPECTRA 36.0 g/dL [facility] RDW 16.2 (H) 11.5 - APS SPECTRA 14.5 % [facility] Platelets 250 130 - 400 APS SPECTRA 1000/mcL [facility] Specimen (Source) Anatomical Collection Method Collection Time Re ceived Time Location / / Volume Laterality 09/22/2021 09/24/2021 2:35 PM CDT Narrative APS SPECTRA [facility] - 09/24/2021 Unless otherwise specified, test(s) performed at: [facility], [address] [place] [address] HOISTING ENGINE OPERATOR: Alhaji Noguera M.D., Ph.D For any questions, please call customer service at FREQUENCY:MONTHLY Resulting Agency Comment Specimen source: Blood Ernie Pompa MD LAB BLOOD ORDERABLES Performing Organization Address City/State/ZIP Code Phon e Number APS SPECTRA [facility] IMMUNO CHEMISTRY (09/22/2021) athologist Signature Hep B Surface Negative Negative APS SPECTRA Ag [facility] Specimen (Source) Anatomical Collection Method Collection Time Re ceived Time Location / / Volume Laterality 09/22/2021 09/24/2021 2:25 PM CDT Resulting Agency Comment Specimen source: Plasma Ernie Pompa MD LAB BLOOD ORDERABLES Performing Organization Address City/[facility]/ZIP Code Phon e Number APS SPECTRA [facility] (ABNORMAL) Spectrae Chemistry (09/22/2021) P athologist Signature PTH 722 (H) 16 - 80 APS SPECTRA pg/mL [facility] Specimen (Source) Anatomical Collection Method Collection Time Re ceived Time Location / / Volume Laterality 09/22/2021 09/24/2021 2:25 PM CDT Narrative APS SPECTRA [facility] - 09/24/2021 Unless otherwise specified, test(s) performed at: [facility], [address] [facility] [place] [address] HOISTING ENGINE OPERATOR: Alhaji Noguera M.D., Ph.D For any questions, please call customer service at FREQUENCY:MONTHLY Resulting Agency Comment Specimen source: Plasma Ernie Pompa MD LAB BLOOD ORDERABLES Performing Organization Address City/[facility] Phon e Number APS SPECTRA [facility] documented in this encounter Visit Diagnoses Not on filedocumented in this encounter
--- OUTSIDE RECORDS SUMMARY | 2021-10-27 05:41 | XMS_ITS | Encounter Summary ---
:1945 Author Organization [facility] Address [address] [place] [address] Care Team Providers Name Role Phone Unavailable Primary Care Provider Unavailable Encounter Details Date Type Department Care Team Description 03/31/2019 Records - [facility] [address] [place] [id number] [place] [phone] Social History Tobacco Use Types Packs/Day Years Used Date Never Assessed Sex Assigned at Date Recorded Not on file documented as of this encounter Plan of Treatment Not on filedocumented as of this encounter Procedures Procedure Name Priority Date/Time Associated Diagnosis Comme nts BASIC METABOLIC Routine 04/01/2019 7:55 AM Result s for this PANEL CDL SERVICE TECHNICIAN procedure are i n the results section. CBC WITH PLATELETS Routine 04/01/2019 7:55 AM Res ults for this CDL SERVICE TECHNICIAN procedure are i n the results section. documented in this encounter Results (ABNORMAL) CBC with platelets (04/01/2019 7:55 AM CDL SERVICE TECHNICIAN) [facility] Method Time Signature WBC 7.6 4.0 - 11.0 04/01/2019 HEALTH thou/uL 12:[address] [facility] RBC Count 2.48 (L) 4.40 - 04/01/2019 HEALTH 6.20 12:59 PM [facility] LABORATORY Hemoglobin 7.7 (L) 14.0 - 04/01/2019 HEALTH 18.0 g/dL 12:[address] [facility] Hematocrit 25.1 (L) 40.0 - 04/01/2019 HEALTH 54.0 % 12:[address] [facility] MCV 101 (H) 80 - 100 04/01/2019 HEALTH fL 12:[address] [facility] MCH 31.0 27.0 - 04/01/2019 HEALTH 34.0 pg 12:[address] [facility] MCHC 30.7 (L) 32.0 - 04/01/2019 HEALTH 36.0 g/dL 12:[address] [facility] RDW 19.7 (H) 11.0 - 04/01/2019 HEALTH 14.5 % 12:[address] [facility] Platelet Count 137 (L) 140 - 440 04/01/2019 HEALTH thou/uL 12:[address] [facility] Mean Platelet 10.7 8.5 - 12.5 04/01/2019 HEALTH Volume fL 12:[address] [facility] Specimen Anatomical Collection Method / Collection Time Recei annie Time (Source) Location / Volume Laterality Blood specimen STRUCTURE OF RIGHT Venipuncture / 04/01/2019 7:55 (specimen) UPPER LIMB / Unknown AM CDL SERVICE TECHNICIAN 12:23 PM CDL SERVICE TECHNICIAN Unknown Alison Hollins LAB - BLOOD ORDERABLES Performing Organization Address City/State/ZIP Code Phon [place] [address] [address] [facility] (ABNORMAL) Basic metabolic panel (04/01/2019 7:55 AM CDL SERVICE TECHNICIAN) [facility] Method Time Signature Sodium 137 136 - 145 04/01/2019 HEALTH mmol/L 1:[address] [facility] Potassium 4.7 3.5 - 5.0 04/01/2019 HEALTH mmol/L 1:[address] [facility] Chloride 105 98 - 107 04/01/2019 HEALTH mmol/L 1:17 PM [facility] Carbon Dioxide 22 22 - 31 04/01/2019 HEALTH (CO2) mmol/L 1:17 PM [facility] Anion Gap 10 5 - 18 04/01/2019 HEALTH mmol/L 1:[address] [facility] Glucose 83 70 - 125 04/01/2019 HEALTH mg/dL 1:[address] [facility] Calcium 10.1 8.5 - 10.5 04/01/2019 HEALTH mg/dL 1:17 PM [facility] Urea Nitrogen 93 (H) 8 - 28 04/01/2019 HEALTH mg/dL 1:[address] [facility] Creatinine 3.02 (H) 0.70 - 04/01/2019 HEALTH 1.30 mg/dL 1:[address] [facility] GFR Estimate If 25 (L) >60 04/01/2019 HEALTH Black mL/min/1.7 1:[address] GFR Estimate 21 (L) >60 04/01/2019 HEALTH mL/min/1.7 1:17 [address] Specimen Anatomical Collection Method / Collection Time Recei annie Time (Source) Location / Volume Laterality Blood specimen STRUCTURE OF RIGHT Venipuncture / 04/01/2019 7:55 (specimen) UPPER LIMB / Unknown AM CDL SERVICE TECHNICIAN 12:23 PM CDL SERVICE TECHNICIAN Unknown Narrative [facility] - 04/01/2019 1:17 PM CDL SERVICE TECHNICIAN Fasting Glucose reference range is 70-99 mg/dL per [place] [employer] (ADA) maryan marrero. Alison Hollins LAB - BLOOD ORDERABLES Performing Organization Address City/State/ZIP Code [place] [id number] [place] [address] LABORATORY [facility] [address] [place] [address], [facility] documented in this encounter Visit Diagnoses Not on filedocumented in this encounter
--- OUTSIDE RECORDS SUMMARY | 2021-10-27 05:41 | XMS_ITS | Encounter Summary ---
:1945 Author Organization [facility] Address [address] [place] [address] Care Team Providers Name Role Phone Unavailable Primary Care Provider Unavailable Encounter Details Date Type Department Care Team Description 08/20/2021 Orders Only [facility] O f Ernie Guzmán MD [address] [place] [address] [place], [place] [phone] (Wo rk) Social History Tobacco Use Types Packs/Day Years Used Date Smoking Tobacco: Unknown Comments: Smoking History Info:Patient n ot screened Sex Assigned at Date Recorded Not on file documented as of this encounter Plan of Treatment Not on filedocumented as of this encounter Procedures Procedure Name Priority Date/Time Associated Diagnosis Comme nts CHEMISTRY Routine 08/20/2021 Results for thi s procedure are in the resu lts section. documented in this encounter Results (ABNORMAL) Spectrae Chemistry (08/20/2021) P athologist Signature PTH 810 (H) 16 - 80 APS SPECTRA pg/mL [facility] Specimen (Source) Anatomical Collection Method Collection Time Re ceived Time Location / / Volume Laterality 08/20/2021 08/21/2021 12:1 6 PM CDT Narrative APS SPECTRA [facility] - 08/21/2021 Unless otherwise specified, test(s) performed at: [facility], [address] [place] [address] DUMP TRUCK OPERATOR: Alec Payan M.D. For any questions, please call customer service at FREQUENCY:OTHER Resulting Agency Comment Specimen source: Plasma Ernie Pompa MD LAB BLOOD ORDERABLES Performing Organization Address City/State/ZIP Code Phon e Number APS SPECTRA [facility] documented in this encounter Visit Diagnoses Not on filedocumented in this encounter
--- OUTSIDE RECORDS SUMMARY | 2021-10-27 05:41 | XMS_ITS | Encounter Summary ---
:1945 Author Organization [facility] Address [address] [place] [address] Care Team Providers Name Role Phone Unavailable Primary Care Provider Unavailable Encounter Details Date Type Department Care Team Description 09/15/2021 Treatment [facility] O f Ernie Guzmán MD [address] [place] [address] [place], [place] [phone] (Wo rk) Social History Tobacco Use Types Packs/Day Years Used Date Smoking Tobacco: Unknown Comments: Smoking History Info:Patient n ot screened Sex Assigned at Date Recorded Not on file documented as of this encounter Miscellaneous Notes Dialysis Note - Ernie Pompa MD - 09/15/2021 10:30 AM CDT Date: Sep 15, 2021 Patient Name: Shaun Ocampo : 1945 Chart #: [id number] Sex: M This patient was personally seen for a basic visit as part of routine weekly dialysis care. A reviewof the dialysis treatment, blood pressure, estimated dry weight and recent lab values was made. These were discussed with the patient and staff as necessary. Treatment Data for 09/15/2021 started at:6:49 AM Dialyzer: 180NRe Optiflux Na: 138 mEq/L Bicarb: 34 mEq/L Dialysate: 2.0 K, 2.5 Ca, 1.0 Mg, 100 Dextrose (G2251) Dialysate/Machine Temp (prescribed): 37 C Dialysate/Machine Temp (actual): 37 C BFR (prescribed): 400 BFR (actual): n/a Prescribed time: 04:00 EDW: 109 kg Access Type: Active (In Use):AVFistula-Standard/Left Upper Arm Pre Dialysis Vitals (for 09/15/2021 6:38 AM ) Pre BP (sit): 104/54 Pre Wt: 116.1 kg Temp: 97.3 F Post Dialysis Vitals (for 09/13/2021 10:52 AM ) Post BP (sit): 103/41 Post Wt: 112.4 kg Current Dialysis Vitals (for 09/15/2021 10:02 AM ) BP (sit): 107/33 AP(-) / TUMBLER MACHINE OPERATOR: n/a Pulse: 65 Chairside data as of 09/15/2021 10:02 AM Last 3 Treatments 09/13/2021 09/10/2021 09/08/2021 EDW (kg) 109 109 109 Weight Pre (kg) 116.8 114.6 115.2 Weight Post (kg) 112.4 112.2 110.6 Dialytic Weight Loss (kg) -4.4 -2.4 -4.6 EDW Deviation (kg) 3.4 3.2 1.6 BP Sit Pre 103/48 103/39 110/50 BP Sit Post 103/41 101/39 120/41 UF Rate (mL/kg/hr) 10 6 11 Prescribed BFR 400 400 400 Average Delivered BFR 410 410 410 Prescribed Treatment Time 04:00 04:00 04:00 Actual Treatment Time 04:00 04:00 04:00 Last 3 Values 08/27/2021 05/28/2021 04/23/2021 Access Flow 794 1102 1248 Treatment Medication Orders Medication Sig Start Date End Date Doxercalciferol (Hectorol) 4 mcg IVP Every Treatment 08/25/2021 08/24/2022 Etelcalcetide (Parsabiv) 7.5 mg IVP 3X Week Post Dialysis 05/31/2021 05/30/2022 Heparin Sodium (Porcine) 1,000 Units/mL Systemic 2000 units IVP Every Treatment 03/29/2021 03/28/2022 Heparin Sodium (Porcine) 1,000 Units/mL Systemic 1000 units IVP Every Treatment 03/29/2021 03/28/2022 Iron Sucrose (Venofer) 50 mg IVP 1X Week 07/26/2021 07/25/2022 Mircera 200 mcg IVP Every 2 weeks 09/15/2021 09/14/2022 SLAG MOTOR OPERATOR: Ernie Pompa MD [address]: [phone] SCHEDULE: -- 2nd Shift ACCESS: EDW: kg. DIALYZER: HD DURATION: NEEDLE SIZE: ANTICOAG: BATH: QB: ml/min QD: ml/min Subjective Tolerating dialysis well. 09/15/21: No new issues. Ongoing issues with [...] and do periodic extra UF treatments at [facility] rather than risk more hypotension post-tx with use of midodrine and additional UF during treatments. He has fistulagram last week, went well and access working well since. 08/11: Continues to have problems with fluid gains. we have spent considerable time discussing this, he is trying to work on this but can't seem to avoid large gains. Will go to [facility] for UF tomorrow, needs extra treatments every 2 weeks it looks like to maintain EDW. He does get SOB when >5K over dry weight in particular. 07/21/21: Continues to struggle with fluid gains, extra UF run scheduled tomorrow at [facility]. He does feel more SOB when fluid overloaded. No new symptoms otherwise, he is enjoying the nicer weather which allows him to do more activity and not sit at home and drink fluids which he thinks will help with IDWG's. 07/14/21: Continues to have high gains, unfortunately [facility] without staff to open tomorrow for extra [...] had steroid injections in knees yesterday at [facility]. To do PT as well. He pulled muscle in his lower arm on L side last week getting into car, hurt a lot but is improving. Fluid gains continue to be high, [facility] not open on this week, says he will do his best withlimiting salt/fluid. HE does feel SOB with exertion with extra fluid on, no orthopnea. 05/26/21: Has SOB when >5 Kg over dry weight, extra run last week at [facility] helped. Trying his best with fluid restriction. [...] extra run and we discussed going to [facility] tomorrow for UF only run and he [...] again today, may need extra run at [facility] if can't get down over next week. 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 Cardiovascular Regular rate. Regular rhythm. Edema - 1+ leg edema. unchanged Access - AVF intact with needles in place, good t/b and no aneurysms he has shallow ulceration on lateral R foot Medication List Medication Sig Start Date albuterol [...] as directed every six hours as needed irbesartan 150 mg tablet Take 1 tablet by mouth once a day lidocaine-prilocaine 2.5-2.5% cream metoprolol succinate 25 mg [...] as indicated below. Stop irbesartan BUN mg/dL 55 (08/30/21) 52 (08/18/21) 44 (07/21/21) 66 (06/23/21) 43 (05/21/21) UREA NITROGEN (MG/DL) IN SER/PLAS - POST DIALYSIS mg/dL 16 (08/30/21) 17 (08/18/21) 14 (07/21/21) 19 (06/23/21) 12 (05/21/21) URR % 71 (08/30/21) 67 (08/18/21) 68 (07/21/21) 71 (06/23/21) 72 (05/21/21) spKt/V Gotch 1.39 (08/18/21) 1.42 (07/21/21) 1.62 (05/21/21) 1.45 (05/19/21) 1.6 (04/21/21) eKdrt/V 1.21 (08/18/21) 1.24 (07/21/21) 1.41 (05/21/21) 1.26 (05/19/21) 1.39 (04/21/21) spKt/V (Daugirdas II) 1.4900 (08/30/21) 1.3400 (08/18/21) 1.3700 (07/21/21) 1.4700 (06/23/21) 1.5200 (05/21/21) HEMOGLOBIN (G/DL) IN BLOOD g/dL 9.1 (09/08/21) 9.1 (09/01/21) 8.9 (08/25/21) 9.4 (08/18/21) 9.5 (08/11/21) PLATELETS 1000/mcL 101 (08/18/21) 183 (07/21/21) 149 (05/19/21) 155 (04/21/21) 135 (03/24/21) IRON SATURATION % 32 (08/18/21) 36 (07/21/21) 31 (06/23/21) 38 (05/26/21) 35 (05/19/21) FERRITIN ng/mL 640 (06/23/21) 640 (05/21/21) 857 (03/24/21) 837 (02/24/21) 925 (01/27/21) ALBUMIN (G/DL) g/dL 3.6 (08/18/21) 3.5 (07/21/21) 3.7 (06/23/21) Sodium mEq/L 135 (08/18/21) 138 (07/21/21) 137 (06/23/21) POTASSIUM (MMOL/L) IN SER/PLAS mEq/L 5.8 (08/18/21) 5.5 (07/21/21) 4.9 (06/23/21) BICARBONATE (CO2) mEq/L 23 (08/18/21) 25 (07/21/21) 22 (06/23/21) 25 OH VITAMIN D ng/mL 38.3 (03/24/21) 37.9 (09/23/20) 37.9 (03/25/20) BUN/CREATININE (MASS RATIO) IN SER/PLAS 9.0 (08/18/21) 7.0 (07/21/21) 10.0 (06/23/21) Calcium mg/dL 8.9 (09/13/21) 8.6 (09/01/21) 8.7 (08/18/21) Calcium Phos Product 38 (08/18/21) 38 (07/21/21) 40 (06/23/21) CALCIUM (MG/DL) CORRECTED FOR ALBUMIN IN SER/PLAS mg/dL 9.0 (08/18/21) 9.0 (07/21/21) 9.2 (06/23/21) PHOSPHATE (MG/DL) IN SER/PLAS mg/dL 4.4 (08/18/21) 4.4 (07/21/21) 4.4 (06/23/21) IPTH pg/mL 851 (09/13/21) 810 (08/20/21) 766 (08/18/21) Vascular Access Assessment: Type of access: [id number] Surgeon - Lary GARDNER 08/2021: fistulagram at [facility] with angioplasty of stenosis completed Impression and Plan Stable dialysis overall, no changes to prescription made Continue to work on fluid gains, likely will need extra UF run every couple of weeks at [facility] I asked him to schedule follow-up with podiatry given ulceration on lateral foot. There is no cellulitis at this time. Ernie Pompa MD [ Signed And locked electronically On 09/15/2021 at 10:32:55 AM ] Transcribed: Ernie Pompa ( 09/15/2021 ) documented in this encounter Plan of Treatment Not on filedocumented as of this encounter Visit Diagnoses Not on filedocumented in this encounter
--- OUTSIDE RECORDS SUMMARY | 2021-10-27 05:41 | XMS_ITS | Encounter Summary ---
:1945 Author Organization [facility] Address [address] [place] [address] Care Team Providers Name Role Phone Unavailable Primary Care Provider Unavailable Encounter Details Date Type Department Care Team Description 08/25/2021 Orders Only [facility] O f Ernie Guzmán MD [phone] [place] [address] [place], [place] [phone] (Wo rk) Social History Tobacco Use Types Packs/Day Years Used Date Smoking Tobacco: Unknown Comments: Smoking History Info:Patient n ot screened Sex Assigned at Date Recorded Not on file documented as of this encounter Plan of Treatment Not on filedocumented as of this encounter Procedures Procedure Name Priority Date/Time Associated Diagnosis Comme nts HEMATOLOGY Routine 08/25/2021 Results for thi s procedure are in the resu lts section. documented in this encounter Results (ABNORMAL) HEMATOLOGY (08/25/2021) Analysis Performed At Patho logist Time Signature Hemoglobin 8.9 (L) 14.0 - [facility] 18.0 g/dL [facility] Hemoglobin x 3 26.7 (L) 42.0 - [facility] 54.0 % [facility] Specimen (Source) Anatomical Collection Method Collection Time Re ceived Time Location / / Volume Laterality 08/25/2021 08/27/2021 1:05 PM CDT Narrative [facility]PS S[facility]RA [facility] - 08/27/2021 Unless otherwise specified, test(s) performed at: [facility], [address] [place] [address] GROUND WATER PUMP INSTALLER: Alec Payan M.D. For any questions, please call customer service at FREQUENCY:OTHER Resulting Agency Comment Specimen source: Blood Ernie Pompa MD LAB BLOOD ORDERABLES Performing Organization Address City/State/ZIP Code Phon e Number [facility]PS [facility] documented in this encounter Visit Diagnoses Not on filedocumented in this encounter
--- OUTSIDE RECORDS SUMMARY | 2021-10-27 05:41 | XMS_ITS | Encounter Summary ---
:1945 Author Organization [facility] Address [address] [place] [address] Care Team Providers Name Role Phone Unavailable Primary Care Provider Unavailable Encounter Details Date Type Department Care Team Description 08/30/2021 Orders Only [facility] O f Ernie Guzmán MD [phone] [place] [address] [place], [place] [phone] (Wo rk) Social History Tobacco Use Types Packs/Day Years Used Date Smoking Tobacco: Unknown Comments: Smoking History Info:Patient n ot screened Sex Assigned at Date Recorded Not on file documented as of this encounter Plan of Treatment Not on filedocumented as of this encounter Procedures Procedure Name Priority Date/Time Associated Diagnosis Comme nts HD KINETICS Routine 08/30/2021 Results for thi s procedure are i n the results section . POST CHEMISTRY Routine 08/30/2021 Results for t his procedure are i n the results section . CHEMISTRY Routine 08/30/2021 Results for thi s procedure are i n the results section . SPECTRA [facility] LAB RESULTS Routine 08/30/2021 Resul ts for this procedure are i n the results section . documented in this encounter Results Spectra [facility] Lab Results (08/30/2021) athologist Signature eKt/V 1.30 [facility] ([place]) spKt/V 1.49 [facility] ([place] II) Specimen (Source) Anatomical Location Collection Method / Collectio n Time Received Time / Laterality Volume 08/30/2021 08/30/2021 [facility] Ordering Provider LAB BLOOD ORDERABLES Performing Organization Address City/State/ZIP Code Phon e Number [facility] HD KINETICS (08/30/2021) P athologist Signature % Urea 71 65 - 80 % [facility] Reduction [facility] Specimen (Source) Anatomical Collection Method Collection Time Re ceived Time Location / / Volume Laterality 08/30/2021 08/31/2021 5:11 PM CDT Narrative [facility] - 08/31/2021 Unless otherwise specified, test(s) performed at: [facility], [address] [place] [address] AURIST: Alec Payan M.D. For any questions, please call customer service at FREQUENCY:OTHER Resulting Agency Comment Specimen source: Serum Ernie Pompa MD LAB BLOOD ORDERABLES Performing Organization Address City/[facility] Phon e Number [facility] (ABNORMAL) Spectrae Chemistry (08/30/2021) athologist Signature BUN 55 (H) 6 - 19 [facility] mg/dL [facility] Specimen (Source) Anatomical Collection Method Collection Time Re ceived Time Location / / Volume Laterality 08/30/2021 08/31/2021 5:11 PM CDT Narrative [facility] - 08/31/2021 Unless otherwise specified, test(s) performed at: [facility], [address] [place] [address] AURIST: Alec Payan M.D. For any questions, please call customer service at FREQUENCY:OTHER Resulting Agency Comment Specimen source: Serum Ernie Pompa MD LAB BLOOD ORDERABLES Performing Organization Address City/[facility] Phon e Number [facility] POST CHEMISTRY (08/30/2021) athologist Signature BUN Post 16 6 - 19 [facility] Dialysis mg/dL [facility] Specimen (Source) Anatomical Collection Method Collection Time Re ceived Time Location / / Volume Laterality 08/30/2021 08/31/2021 1:52 PM CDT Narrative [facility] - 08/31/2021 Unless otherwise specified, test(s) performed at: [facility], [address] [place] [address] AURIST: Alec Payan M.D. For any questions, please call customer service at FREQUENCY:OTHER Resulting Agency Comment Specimen source: Plasma Ernie Pompa MD LAB BLOOD ORDERABLES Performing Organization Address City/State/ZIP Code Phon e Number [facility] documented in this encounter Visit Diagnoses Not on filedocumented in this encounter
--- OUTSIDE RECORDS SUMMARY | 2021-10-27 05:41 | XMS_ITS | Encounter Summary ---
:1945 Author Organization [facility] Address [address] [place] [address] Care Team Providers Name Role Phone Unavailable Primary Care Provider Unavailable Encounter Details Date Type Department Care Team Description 09/29/2021 Orders Only [facility] O f Ernie Guzmán MD [phone] [place] [address] [place], [place] [phone] (Wo rk) Social History Tobacco Use Types Packs/Day Years Used Date Smoking Tobacco: Unknown Comments: Smoking History Info:Patient n ot screened Sex Assigned at Date Recorded Not on file documented as of this encounter Plan of Treatment Not on filedocumented as of this encounter Procedures Procedure Name Priority Date/Time Associated Diagnosis Comme nts HEMATOLOGY Routine 09/29/2021 Results for thi s procedure are in the resu lts section. CHEMISTRY Routine 09/29/2021 Results for thi s procedure are in the resu lts section. documented in this encounter Results (ABNORMAL) Spectrae Chemistry (09/29/2021) P athologist Signature Potassium 5.7 (H) 3.5 - 5.1 [facility] mEq/L [facility] Specimen (Source) Anatomical Collection Method Collection Time Re ceived Time Location / / Volume Laterality 09/29/2021 09/30/2021 4:22 AM CDT Narrative [facility] - 09/30/2021 Unless otherwise specified, test(s) performed at: [facility], [address] [place] [address], [place] [address] SUSTAINMENT LOGISTICS ANALYST: Alhaji Noguera M.D., Ph.D For any questions, please call customer service at FREQUENCY:OTHER Resulting Agency Comment Specimen source: Serum Ernie Pompa MD LAB BLOOD ORDERABLES Performing Organization Address City/State/ZIP Code Phon e Number [facility] (ABNORMAL) HEMATOLOGY (09/29/2021) Analysis Performed At Patho logist Time Signature Hemoglobin 8.9 (L) 14.0 - [facility] 18.0 g/dL [facility] Hemoglobin x 3 26.7 (L) 42.0 - [facility] 54.0 % [facility] Specimen (Source) Anatomical Collection Method Collection Time Re ceived Time Location / / Volume Laterality 09/29/2021 09/30/2021 2:54 AM CDT Narrative [facility] - 09/30/2021 Unless otherwise specified, test(s) performed at: [facility], [address] [place], [place] [address]fr[facility] [place] [address] SUSTAINMENT LOGISTICS ANALYST: Alhaji Noguera M.D., Ph.D For any questions, please call customer service at FREQUENCY:OTHER Resulting Agency Comment Specimen source: Blood Ernie Pompa MD LAB BLOOD ORDERABLES Performing Organization Address City/[facility] Code Phon e Number [facility] documented in this encounter Visit Diagnoses Not on filedocumented in this encounter
--- OUTSIDE RECORDS SUMMARY | 2021-10-27 05:41 | XMS_ITS | Encounter Summary ---
:1945 Author Organization [facility] Address [address] [place] [address] Care Team Providers Name Role Phone Unavailable Primary Care Provider Unavailable Encounter Details Date Type Department Care Team Description 09/08/2021 Orders Only [facility] O f Ernie Guzmán MD [phone] [place] [address] [place], [place] [phone] (Wo rk) Social History Tobacco Use Types Packs/Day Years Used Date Smoking Tobacco: Unknown Comments: Smoking History Info:Patient n ot screened Sex Assigned at Date Recorded Not on file documented as of this encounter Plan of Treatment Not on filedocumented as of this encounter Procedures Procedure Name Priority Date/Time Associated Diagnosis Comme nts HEMATOLOGY Routine 09/08/2021 Results for thi s procedure are in the resu lts section. documented in this encounter Results (ABNORMAL) HEMATOLOGY (09/08/2021) Analysis Performed At Patho logist Time Signature Hemoglobin 9.1 (L) 14.0 - [facility] 18.0 g/dL [facility] Hemoglobin x 3 27.3 (L) 42.0 - [facility] 54.0 % [facility] Specimen (Source) Anatomical Collection Method Collection Time Re ceived Time Location / / Volume Laterality 09/08/2021 09/09/2021 1:11 PM CDT Narrative [facility] - 09/09/2021 Unless otherwise specified, test(s) performed at: [email or web address], [address] [place] [address] STERILE PREPARATION TECHNICIAN: Alec Payan M.D. For any questions, please call customer service at FREQUENCY:OTHER Resulting Agency Comment Specimen source: Blood Ernie Pompa MD LAB BLOOD ORDERABLES Performing Organization Address City/State/ZIP Code Phon e Number [facility] documented in this encounter Visit Diagnoses Not on filedocumented in this encounter
--- OUTSIDE RECORDS SUMMARY | 2021-10-27 05:41 | XMS_ITS | Encounter Summary ---
:1945 Author Organization [facility] Address [address] [place] [address] Care Team Providers Name Role Phone Unavailable Primary Care Provider Unavailable Encounter Details Date Type Department Care Team Description 09/29/2021 Treatment [facility] O f Ernie Guzmán MD [address] [place] [address] [place], [place] [phone] (Wo rk) Social History Tobacco Use Types Packs/Day Years Used Date Smoking Tobacco: Unknown Comments: Smoking History Info:Patient n ot screened Sex Assigned at Date Recorded Not on file documented as of this encounter Miscellaneous Notes Dialysis Note - Ernie Pompa MD - 09/29/2021 10:30 AM CDT Date: Sep 29, 2021 Patient Name: Shaun Ocampo : 1945 Chart #: [id number] Sex: M This patient was personally seen for a complete visit as part of routine monthly dialysis care. A review of the dialysis treatment, blood pressure, estimated dry weight and recent lab values was made. These were discussed with the patient and staff as necessary. Treatment Data for 09/29/2021 started at:6:56 AM Dialyzer: 180NRe Optiflux Na: 138 mEq/L Bicarb: 34 mEq/L Dialysate: 2.0 K, 2.5 Ca, 1.0 Mg, 100 Dextrose (G2251) Dialysate/Machine Temp (prescribed): 37 C Dialysate/Machine Temp (actual): 36.5 C BFR (prescribed): 400 BFR (actual): 400 Prescribed time: 04:00 EDW: 109 kg Access Type: Active (In Use):AVFistula-Standard/Left Upper Arm Pre Dialysis Vitals (for 09/29/2021 6:45 AM ) Pre BP (sit): 101/49 Pre Wt: 115.5 kg Temp: 97.8 F Post Dialysis Vitals (for 09/27/2021 10:58 AM ) Post BP (sit): 106/46 Post Wt: 112.9 kg Current Dialysis Vitals (for 09/29/2021 10:02 AM ) BP (sit): 109/45 AP(-) / SPECIAL SERVICES SUPERVISOR: 168/138 Pulse: 57 Chairside data as of 09/29/2021 10:02 AM Last 3 Treatments 09/27/2021 09/24/2021 09/22/2021 EDW (kg) 109 109 109 Weight Pre (kg) 117.2 116.2 116.8 Weight Post (kg) 112.9 112.5 112.5 Dialytic Weight Loss (kg) -4.3 -3.7 -4.3 EDW Deviation (kg) 3.9 3.5 3.5 BP Sit Pre 101/47 89/38 91/28 BP Sit Post 106/46 101/52 109/58 UF Rate (mL/kg/hr) 10 8 10 Prescribed BFR 400 400 400 Average Delivered BFR 410 410 400 Prescribed Treatment Time 04:00 04:00 04:00 Actual Treatment Time 04:00 04:00 04:00 Last 3 Values 08/27/2021 05/28/2021 04/23/2021 Access Flow 794 1102 1240 Treatment Medication Orders Medication Sig Start Date End Date Doxercalciferol (Hectorol) 5 mcg IVP Every Treatment 09/17/2021 09/16/2022 Etelcalcetide (Parsabiv) 10 mg IVP 3X Week Post Dialysis 09/27/2021 09/26/2022 Heparin Sodium (Porcine) 1,000 Units/mL Systemic 2000 units IVP Every Treatment 03/29/2021 03/28/2022 Heparin Sodium (Porcine) 1,000 Units/mL Systemic 1000 units IVP Every Treatment 03/29/2021 03/28/2022 Iron Sucrose (Venofer) 100 mg IVP Every Treatment 09/29/2021 10/20/2021 Mircera 225 mcg IVP Every 2 weeks 09/29/2021 09/28/2022 LOSS PREVENTION LEADER: Ernie Pompa MD LOCATION: [phone] SCHEDULE: -- 2nd Shift EDW: kg. DIALYZER: HD DURATION: NEEDLE SIZE: ANTICOAG: BATH: QB: ml/min QD: ml/min Subjective Tolerating dialysis well. 09/29/21: Continues to struggle with fluid gains. [...] and do periodic extra UF treatments at [facility] rather than risk more hypotension post-tx with use of midodrine and additional UF during treatments. He has fistulagram last week, went well and access working well since. 08/11: Continues to have problems with fluid gains. we have spent considerable time discussing this, he is trying to work on this but can't seem to avoid large gains. Will go to [facility] for UF tomorrow, needs extra treatments every 2 weeks it looks like to maintain EDW. He does get SOB when >5K over dry weight in particular. 07/21/21: Continues to struggle with fluid gains, extra UF run scheduled tomorrow at [facility]. He does feel more SOB when fluid overloaded. No new symptoms otherwise, he is enjoying the nicer weather which allows him to do more activity and not sit at home and drink fluids which he thinks will help with IDWG's. 07/14/21: Continues to have high gains, unfortunately [facility] without staff to open tomorrow for extra [...] had steroid injections in knees yesterday at [facility]. To do PT as well. He pulled muscle in his lower arm on L side last week getting into car, hurt a lot but is improving. Fluid gains continue to be high, [facility] not open on this week, says he will do his best withlimiting salt/fluid. HE does feel SOB with exertion with extra fluid on, no orthopnea. 05/26/21: Has SOB when >5 Kg over dry weight, extra run last week at [facility] helped. Trying his best with fluid restriction. [...] extra run and we discussed going to [facility] tomorrow for UF only run and he [...] again today, may need extra run at [facility] if can't get down over next week. 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 06/10: Doing well overall, no new complaints, [...] Went to Urgent care -> ER in [place] yesterday,CT with R hydro but no obstructive [...] He had infiltration last week, dialyzed at [facility] on Sat and went well, access [...] and he has no symptoms. Advanced Practitioner Subjective Review of Systems None reported. Problem List [...] Respiratory - Clear to auscultation bilaterally. Cardiovascular - Regular rate. Regular rhythm. No murmur heard. Edema - 1+ leg edema. Access - AVF intact with needles in place, no aneurysms Lateral R ankle there is small superficial ulceration without erythema or drainage and unchanged from last visit Medication List Medication [...] with changes as indicated below. Stop irbesartan Treatment and Adequacy Assessment BUN mg/dL 41 (09/22/21) 55 (08/30/21) 52 [...] (08/30/21) 1.3400 (08/18/21) 1.3700 (07/21/21) 1.4700 (06/23/21) Dialysis is adequate. Achieves prescribed time - Yes Achieves prescribed frequency - Yes Continue current prescription. Vascular Access Assessment Type of access: [email or web address] Surgeon - Lary GARDNER 08/2021: [place] [facility] [place] completed Anemia Assessment HEMOGLOBIN (G/DL) IN BLOOD g/dL 9.4 (09/22/21) 9.1 (09/15/21) 9.1 (09/08/21) 9.1 (09/01/21) 8.9 (08/25/21) PLATELETS 1000/mcL 250 (09/22/21) 101 (08/18/21) 183 (07/21/21) 149 (05/19/21) 155 (04/21/21) IRON SATURATION % 32 (08/18/21) 36 (07/21/21) 31 (06/23/21) 38 (05/26/21) 35 (05/19/21) FERRITIN ng/mL 357 (09/22/21) 640 (06/23/21) 640 (05/21/21) 857 (03/24/21) 837 (02/24/21) Hemoglobin is at goal. Iron Saturation is at goal. Ferritin is at goal. Will adjust NATALEE and intravenous iron per protocol. Nutritional and Metabolic Assessment ALBUMIN (G/DL) g/dL 3.7 (09/22/21) 3.6 (08/18/21) 3.5 (07/21/21) 3.7 (06/23/21) 3.7 (05/19/21) Sodium mEq/L 133 (09/22/21) 135 (08/18/21) 138 (07/21/21) 137 (06/23/21) 136 (05/19/21) POTASSIUM (MMOL/L) IN SER/PLAS mEq/L 6.3 (09/22/21) 5.8 (08/18/21) 5.5 (07/21/21) 4.9 (06/23/21) 5.0 (05/19/21) BICARBONATE (CO2) mEq/L 26 (09/22/21) 23 (08/18/21) 25 (07/21/21) 22 (06/23/21) 20 (05/19/21) 25 OH VITAMIN D ng/mL 56.0 (09/22/21) 38.3 (03/24/21) Albumin is below goal. Encourage high-biological value protein intake. Potassium is above goal. Encourage low potassium diet. Bicarbonate is at goal. Continue same bicarbonate in dialysate. Repeat K today Bone and Mineral Metabolism Assessment CALCIUM mg/dL 9.2 (09/22/21) 8.9 (09/13/21) 8.6 (09/01/21) 8.7 (08/18/21) 9.0 (08/04/21) CALCIUM (MG/DL) CORRECTED FOR ALBUMIN IN SER/PLAS mg/dL 9.4 (09/22/21) 9.0 (08/18/21) 9.0 (07/21/21) 9.2 (06/23/21) 9.3 (05/19/21) PHOSPHATE (MG/DL) IN SER/PLAS mg/dL 3.9 (09/22/21) 4.4 (08/18/21) 4.4 (07/21/21) 4.4 (06/23/21) 4.7 (05/19/21) CALCIUM PHOSPHORUS PRODUCT, COR 37 (09/22/21) 40 (08/18/21) 40 (07/21/21) 40 (06/23/21) 44 (05/19/21) IPTH pg/mL 722 (09/22/21) 851 (09/13/21) 810 (08/20/21) 766 (08/18/21) 986 (08/04/21) Corrected Calcium is at goal. Phosphorous is at goal. Intact PTH is above goal. Pie Dough Roller will adjust binders and vitamin D per protocol and continue to provide dietary education. HE has severe nausea and vomiting with Sensipar, can not use anymore He will benefit from Parsabiv with dose titration to achieve PTH <600, also titration of Vit D analog for high PTH now that Ca is lower. PTH trending down but not yet quite at goal. Cardiovascular Assessment Blood pressures reviewed and are acceptable. Intradialytic weight gains are too high. Estimated dry weight is appropriate. Discussed fluid restriction multiple times, IDWG's remain high Extra UF run tomorrow at [facility] Transplant Status: Patient is not a candidate. Weight, co-morbidities, age Resuscitation Status Stable dialysis, no changes to prescription Extra UF run at [facility] tomorrow Ongoing attempts at lower IDWG's Discussed repeat TTE at 1 year (due Nov) and cardiology follow-up for significant valvular heart disease and elevated PA pressures Ernie Pompa MD [ Signed And locked electronically On 09/29/2021 at 10:32:41 AM ] Transcribed: Ernie Pompa ( 09/29/2021 ) documented in this encounter Plan of Treatment Not on filedocumented as of this encounter Visit Diagnoses Not on filedocumented in this encounter
--- OUTSIDE RECORDS SUMMARY | 2021-10-27 05:41 | XMS_ITS | Encounter Summary ---
:1945 Author Organization [facility] Address [address] [place] [address] Care Team Providers Name Role Phone Unavailable Primary Care Provider Unavailable Encounter Details Date Type Department Care Team Description 09/15/2021 Orders Only [facility] O f Ernie Guzmán MD [address] [place] [address] [place], [place] [phone] (Wo rk) Social History Tobacco Use Types Packs/Day Years Used Date Smoking Tobacco: Unknown Comments: Smoking History Info:Patient n ot screened Sex Assigned at Date Recorded Not on file documented as of this encounter Plan of Treatment Not on filedocumented as of this encounter Procedures Procedure Name Priority Date/Time Associated Diagnosis Comme nts HEMATOLOGY Routine 09/15/2021 Results for thi s procedure are in the resu lts section. documented in this encounter Results (ABNORMAL) HEMATOLOGY (09/15/2021) Analysis Performed At Patho logist Time Signature Hemoglobin 9.1 (L) 14.0 - APS [facility]RA 18.0 g/dL [facility] Hemoglobin x 3 27.3 (L) 42.0 - [facility] 54.0 % [facility] Specimen (Source) Anatomical Collection Method Collection Time Re ceived Time Location / / Volume Laterality 09/15/2021 09/16/2021 9:31 AM CDT Narrative [facility]PS S[facility]RA [facility] - 09/16/2021 Unless otherwise specified, test(s) performed at: [facility], [address] [place] [address] DRIVER ENGINEER: Alec Payan M.D. For any questions, please call customer service at FREQUENCY:OTHER Resulting Agency Comment Specimen source: Blood Ernie Pompa MD LAB BLOOD ORDERABLES Performing Organization Address City/State/ZIP Code Phon e Number [facility] documented in this encounter Visit Diagnoses Not on filedocumented in this encounter
--- OUTSIDE RECORDS SUMMARY | 2021-10-27 05:41 | XMS_ITS | Clinical Summary ---
:1945 Author Organization [facility] Address [address] [facility] [address] [place] [address] Phone Care Team Providers Name Role Phone Unavailable Primary Care Provider Unavailable Encounters Date Type Specialty Care Team Description 10/20/2021 Orders Only NephErnie Mccoy MD 10/13/2021 Orders Only NephErnie Mccoy MD 10/13/2021 Treatment Ernie Pompa MD 10/06/2021 Orders Only NephErnie Mccoy MD 09/29/2021 Orders Only NephErnie Mccoy MD 09/29/2021 Treatment Ernie Pompa MD 09/22/2021 Orders Only NephErnie Mccoy MD 09/15/2021 Orders Only NephErnie Mccoy MD 09/15/2021 Treatment Ernie Pompa MD 09/13/2021 Orders Only NephErnie Mccoy MD 09/08/2021 Orders Only NephErnie Mccoy MD 09/01/2021 Orders Only NephErnie Mccoy MD 08/30/2021 Orders Only NephErnie Mccoy MD 08/25/2021 Orders Only NephErnie Mccoy MD 08/25/2021 Treatment Ernie Pompa MD 08/20/2021 Orders Only NephErnie Mccoy MD 08/18/2021 Orders Only NephErnie Mccoy MD 08/11/2021 Orders Only NephErnie Mccoy MD 08/11/2021 Treatment Ernie Pompa MD 08/04/2021 Orders Only NephEnrie Mccoy MD 07/28/2021 Orders Only NephErnie Mccoy MD from Last 3 Months Social History Tobacco Use Types Packs/Day Years Used Date Smoking Tobacco: Unknown Comments: Smoking History Info:Patient n ot screened Sex Assigned at Date Recorded Not on file Plan of Treatment Health Maintenance Due Date Last Done Comments Hepatitis B Vaccine (1 of 3 - Risk 1965 Recombivax 3-dose series) Colorectal Cancer Screenin08/06/1995 Annual FOBT Colorectal Cancer Screenin08/06/1995 Colonoscopy Colorectal Cancer Screenin08/06/1995 Sigmoidoscopy Diabetes: Ophthalmology Exam 06/06/2019 Diabetes: Pedal Pulse Checked 06/06/2019 Diabetes: Sensory Foot Exam 06/06/2019 Diabetes: Visual Foot Exam 06/06/2019 Diabetes: Hemoglobin A1C 10/16/2020 07/17/2020 Influenza Vaccine (#1) 2021 12/04/2019, 12/28/2018, 01/04/2018, Additional history exists Pneumococcal Vaccine: 65+ Years Completed 12/09/2015, 06/2014, 10/07/2008 Procedures Procedure Name Priority Date/Time Associated Diagnosis Comme nts SPECTRA [facility] LAB RESULTS Routine 10/20/2021 Resul ts for this procedure are i n the results section . HD KINETICS Routine 10/20/2021 Results for thi s procedure are i n the results section . POST CHEMISTRY Routine 10/20/2021 Results for t his procedure are i n the results section . CHEMISTRY Routine 10/20/2021 Results for thi s procedure are i n the results section . HEMATOLOGY Routine 10/20/2021 Results for thi s procedure are i n the results section . IMMUNO CHEMISTRY Routine 10/20/2021 Results for this procedure are i n the results section . HEMATOLOGY Routine 10/13/2021 Results for thi s procedure are i n the results section . HEMATOLOGY Routine 10/06/2021 Results for thi s procedure are i n the results section . CHEMISTRY Routine 09/29/2021 Results for thi s procedure are i n the results section . HEMATOLOGY Routine 09/29/2021 Results for thi s procedure are i n the results section . SPECTRA KAMERON LAB RESULTS Routine 09/22/2021 Resul ts for this procedure are i n the results section . HD KINETICS Routine 09/22/2021 Results for thi [...] n the results section . HEMATOLOGY Routine 09/15/2021 Results for thi s procedure are i n the results section . CHEMISTRY Routine 09/13/2021 Results for thi s procedure are i n the results section . CHEMISTRY Routine 09/13/2021 Results for thi s procedure are i n the results section . HEMATOLOGY Routine 09/08/2021 Results for thi s procedure are i n the results section . CHEMISTRY Routine 09/01/2021 Results for thi s procedure are i n the results section . HEMATOLOGY Routine 09/01/2021 Results for thi s procedure are i n the results section . SPECTRA K[facility]ON LAB RESULTS Routine 08/30/2021 Resul ts for this procedure are i n the results section . HD KINETICS Routine 08/30/2021 Results for thi s procedure are i n the results section . CHEMISTRY Routine 08/30/2021 Results for thi s procedure are i n the results section . POST CHEMISTRY Routine 08/30/2021 Results for t his procedure are i n the results section . HEMATOLOGY Routine 08/25/2021 Results for thi s procedure are i n the results section . CHEMISTRY Routine 08/20/2021 Results for thi s procedure are i n the results section . SPECTRA KAMERON LAB RESULTS Routine 08/18/2021 Resul ts for this procedure are i n the results section . HD KINETICS Routine 08/18/2021 Results for thi [...] n the results section . HEMATOLOGY Routine 08/11/2021 Results for thi s procedure are i n the results section . CHEMISTRY Routine 08/04/2021 Results for thi s procedure are i n the results section . CHEMISTRY Routine 08/04/2021 Results for thi s procedure are i n the results section . HEMATOLOGY Routine 08/04/2021 Results for thi s procedure are i n the results section . HEMATOLOGY Routine 07/28/2021 Results for thi s procedure are i n the results section . from Last 3 Months Results HD KINETICS (10/20/2021)Only the most recent of4 resultswithin the time period is included. athologist Signature % Urea 71 65 - 80 % APS SPECTRA Reduction [facility] Specimen (Source) Anatomical Collection Method Collection Time Re ceived Time Location / / Volume Laterality 10/20/2021 10/21/2021 3:38 AM CDT Resulting Agency Comment Specimen source: Plasma Ernie Pompa MD LAB BLOOD ORDERABLES Performing Organization Address City/State/ZIP Code Phon e Number APS SPECTRA [facility] POST CHEMISTRY (10/20/2021)Only the most recent of4 resultswithin the time period is included. athologist [facility] BUN Post 11 6 - 19 APS SPECTRA Dialysis mg/dL [facility] Specimen (Source) Anatomical Collection Method Collection Time Re ceived Time Location / / Volume Laterality 10/20/2021 10/21/2021 3:38 AM CDT Narrative APS SPECTRA [facility] - 10/21/2021 Unless otherwise specified, test(s) performed at: [email or web address], [address] [place] [address], [place] [address] MANAGER SWITCH: Alhaji Noguera M.D., Ph.D For any questions, please call customer service at FREQUENCY:MONTHLY Resulting Agency Comment Specimen source: Plasma Ernie Pompa MD LAB BLOOD ORDERABLES Performing Organization Address City/State/[facility] Phon e Number APS SPECTRA [facility] IMMUNO CHEMISTRY (10/20/2021)Only the most recent of3 resultswithin the time period is included. athologist Signature Hep B Surface Negative Negative APS SPECTRA Ag [facility] Specimen (Source) Anatomical Collection Method Collection Time Re ceived Time Location / / Volume Laterality 10/20/2021 10/21/2021 3:50 AM CDT Narrative APS SPECTRA [facility] - 10/21/2021 Unless otherwise specified, test(s) performed at: [email or web address], [facility] [place] [address] MANAGER SWITCH: Alhaji Noguera M.D., Ph.D For any questions, please call customer service at FREQUENCY:MONTHLY Resulting Agency Comment Specimen source: Plasma Ernie Pompa MD LAB BLOOD ORDERABLES Performing Organization Address City/State/ZIP Code Phon e Number APS SPECTRA [facility] (ABNORMAL) HEMATOLOGY (10/20/2021)Only the most recent of13 resultswithin the time period is included. Analysis Performed At Patho logist Time Signature WBC 7.51 4.80 - APS SPECTRA 10.80 [facility] 1000/mcL RBC 3.03 (L) 4.70 - APS SPECTRA 6.10 [facility] mill/mcL Hemoglobin 9.9 (L) 14.0 - APS SPECTRA 18.0 g/dL [facility] Hemoglobin x 3 29.7 (L) 42.0 - APS SPECTRA 54.0 % [facility] Hematocrit 32.8 (L) 42.0 - APS SPECTRA 52.0 % [facility] MCV 108 (H) 80 - 100 APS SPECTRA fl [facility] MCH 32.7 (H) 27.0 - APS SPECTRA 31.0 pg [facility] MCHC 30.3 30.0 - APS SPECTRA 36.0 g/dL [facility] RDW 17.5 (H) 11.5 - APS SPECTRA 14.5 % [facility] Platelets 184 130 - 400 APS SPECTRA 1000/mcL [facility] Specimen (Source) Anatomical Collection Method Collection Time Re ceived Time Location / / Volume Laterality 10/20/2021 10/21/2021 3:53 AM CDT Narrative APS SPECTRA [facility] - 10/21/2021 Unless otherwise specified, test(s) performed at: [email or web address], [facility] [place] [address] MANAGER SWITCH: Alhaji Noguera M.D., Ph.D For any questions, please call customer service at FREQUENCY:MONTHLY Resulting Agency Comment Specimen source: Blood Ernie Pompa MD LAB BLOOD ORDERABLES Performing Organization Address City/State/[facility] Phon e Number APS SPECTRA [facility] (ABNORMAL) Spectrae Chemistry (10/20/2021)Only the most recent of13 results within the time period is included. [facility] gist Method Time Signature BUN 38 (H) 6 - 19 APS SPECTRA mg/dL [facility] Creatinine 5.24 (H) 0.60 - APS SPECTRA 1.30 mg/dL [facility] BUN/Creatinine 7.3 (L) 10.0 - APS SPECTRA Ratio 20.0 [facility] Sodium 135 (L) 136 - 145 APS SPECTRA mEq/L [facility] Potassium 5.0 3.5 - 5.1 APS SPECTRA mEq/L [facility] Chloride 98 96 - 108 APS SPECTRA mEq/L [facility] Bicarbonate 26 20 - 31 APS SPECTRA (CO2) mEq/L [facility] Comment: Please note change in reference range. Calcium 9.5 8.7 - 10.4 mg/dL APS SPECTRA K [facility] Comment: Please note change in reference range. Corrected Calcium 9.7 8.7 - 10.4 mg/dL APS S PECTRA [facility] Comment: Corrected Calcium is not equivalent to m easured Ionized Calcium. Phosphorus 2.9 2.6 - 4.5 mg/dL APS SPECTRA K [facility] Calcium Phosphorus Product 28 0 - 54 APS SPECTRA [facility] Calcium Phosporus Product, Cor 28 0 - 54 APS SPECTRA [facility] Total Protein 6.8 6.0 - 8.5 g/dL APS SPECTRA [facility] Albumin 3.8 3.5 - 5.2 g/dL APS SPECTRA [facility] Globulin, Total 3.0 2.0 - 4.0 g/dL APS SPECT RA [facility] A/G Ratio 1.3 1.0 - 2.0 APS SPECTRA [facility] Iron 46 45 - 160 mcg/dL APS SPECTRA [place] [facility] UIBC 187 155 - 355 mcg/dL APS SPECTRA K [facility] TIBC 233 185 - 515 mcg/dL APS SPECTRA K [facility] Iron Saturation (TSat) 20 20 - 55 % APS SPE CTRA [facility] Specimen (Source) Anatomical Collection Method Collection Time Re ceived Time Location / / Volume Laterality 10/20/2021 10/21/2021 3:47 AM CDT Narrative APS SPECTRA [facility] - 10/21/2021 Unless otherwise specified, test(s) performed at: [email or web address], [address] [place], [place] [address] [address] MANAGER SWITCH: Alhaji Noguera M.D., Ph.D For any questions, please call customer service at FREQUENCY:MONTHLY Resulting Agency Comment Specimen source: Serum Ernie Pompa MD LAB BLOOD ORDERABLES Performing Organization Address City/State/ZIP Code Phon e Number APS SPECTRA [facility] Spectra [facility] Lab Results (10/20/2021)Only the most recent of4 resultswithin the time period is included. P athologist Signature eNPCR 0.70 KAM[facility]ON spKt/V Gotch 1.55 [facility] PCR 57.66 [facility] eKt/V Gotch 1.35 [facility] eKdrt/V 1.35 [facility] nPCR_HD 0.75 [facility] eKt/V 1.29 [facility] ([place]) spKt/V 1.48 KAMERON ([place] II) Specimen (Source) Anatomical Location Collection Method / Collectio n Time Received Time / Laterality Volume 10/20/2021 10/20/2021 Kameron Ordering Provider LAB BLOOD ORDERABLES Performing Organization Address City/[facility]/ZIP Code Phon e Number K[facility] SPECIAL CHEMISTRY (09/22/2021) P athologist Signature Vitamin [...] Code Phon e Number APS SPECTRA [facility] from Last 3 Months Insurance Payer Benefit Plan Subscriber ID Effective Dates Phone Address Type / Group [place] [id number] 2018-Sameer [phone] [address] [address] MEDICARE ADV ([id number]) t [address] [place] [address]
--- OUTSIDE RECORDS SUMMARY | 2021-10-27 05:41 | XMS_ITS | Encounter Summary ---
:1945 Author Organization [facility] Address [address] [place] [address] Care Team Providers Name Role Phone Liban Leos Primary Care Provider Ernie Pompa MD Unavailable Encounter Details Date Type Department Care Team Description 10/08/2021 Travel Social History Tobacco Use Types Packs/Day Years [...] Diagnoses Not on filedocumented in this encounter Care Teams [employer] Manager Relationship Specialty Start Date End Date Liban Leos PCP - General Family Medicine 10/08/21 [address] [place], [place] [phone] Ernie Pompa MD MD Nephrology 10/08/21 [address] [place] [address] documented as of this encounter
--- OUTSIDE RECORDS SUMMARY | 2021-10-27 05:41 | XMS_ITS | Encounter Summary ---
:1945 Author Organization [facility] Address [address] [place] [address] Care Team Providers Name Role Phone Unavailable Primary Care Provider Unavailable Encounter Details Date Type Department Care Team Description 09/01/2021 Orders Only [facility] Ernie Guzmán MD [address] [place] [address] [place], [place] [phone] (Wo rk) Social History Tobacco Use Types Packs/Day Years Used Date Smoking Tobacco: Unknown Comments: Smoking History Info:Patient n ot screened Sex Assigned at Date Recorded Not on file documented as of this encounter Plan of Treatment Not on filedocumented as of this encounter Procedures Procedure Name Priority Date/Time Associated Diagnosis Comme nts HEMATOLOGY Routine 09/01/2021 Results for thi s procedure are in the resu lts section. CHEMISTRY Routine 09/01/2021 Results for thi s procedure are in the resu lts section. documented in this encounter Results Spectrae Chemistry (09/01/2021) P athologist Signature Calcium 8.6 8.4 - 10.2 APS SPECTRA mg/dL [facility] Specimen (Source) Anatomical Collection Method Collection Time Re ceived Time Location / / Volume Laterality 09/01/2021 09/02/2021 4:44 PM CDT Narrative APS SPECTRA [facility] - 09/03/2021 Unless otherwise specified, test(s) performed at: [facility], [address] [place] [address] TEAROOM HOST: Alec Payan M.D. For any questions, please call customer service at FREQUENCY:OTHER Resulting Agency Comment Specimen source: Serum Ernie Pompa MD LAB BLOOD ORDERABLES Performing Organization Address City/[facility] Phon e Number APS SPECTRA [facility] (ABNORMAL) HEMATOLOGY (09/01/2021) Analysis Performed At Patho logist Time Signature Hemoglobin 9.1 (L) 14.0 - APS SPECTRA 18.0 g/dL [facility] Hemoglobin x 3 27.3 (L) 42.0 - APS SPECTRA 54.0 % [facility] Specimen (Source) Anatomical Collection Method Collection Time Re ceived Time Location / / Volume Laterality 09/01/2021 09/02/2021 1:16 PM CDT Narrative APS SPECTRA [facility] - 09/02/2021 Unless otherwise specified, test(s) performed at: [facility], [address] [place] [address] TEAROOM HOST: Alec Payan M.D. For any questions, please call customer service at FREQUENCY:OTHER Resulting Agency Comment Specimen source: Blood Ernie Pompa MD LAB BLOOD ORDERABLES Performing Organization Address City/[facility] Phon e Number APS SPECTRA [facility] documented in this encounter Visit Diagnoses Not on filedocumented in this encounter
--- OUTSIDE RECORDS SUMMARY | 2021-10-27 05:41 | XMS_ITS | Encounter Summary ---
:1945 Author Organization [facility] Address [address] [place] [address] Care Team Providers Name Role Phone Unavailable Primary Care Provider Unavailable Encounter Details Date Type Department Care Team Description 04/03/2019 Records - [facility] [address] [place] [phone] [place], [place] [phone] Social History Tobacco Use Types Packs/Day Years Used Date Never Assessed Sex Assigned at Date Recorded Not on file documented as of this encounter Plan of Treatment Not on filedocumented as of this encounter Procedures Procedure Name Priority Date/Time Associated Diagnosis Comme nts BASIC METABOLIC Routine 04/04/2019 6:30 AM Result s for this PANEL QUALITY ASSURANCE SUPERVISOR FINAL procedure are i n the results section. CBC WITH PLATELETS Routine 04/04/2019 6:30 AM Res ults for this QUALITY ASSURANCE SUPERVISOR FINAL procedure are i n the results section. documented in this encounter Results (ABNORMAL) CBC with platelets (04/04/2019 6:30 AM QUALITY ASSURANCE SUPERVISOR FINAL) [facility] Method Time Signature WBC 7.7 4.0 - 11.0 04/04/2019 HEALTH thou/uL 9:[address] [facility] RBC Count 2.58 (L) 4.40 - 04/04/2019 HEALTH 6.20 9:51 AM [facility] LAB[facility]AT[facility] Hemoglobin 8.0 (L) 14.0 - 04/04/2019 HEALTH 18.0 g/dL 9:[address] [facility] Hematocrit 26.3 (L) 40.0 - 04/04/2019 HEALTH 54.0 % 9:[address] [facility] MCV 102 (H) 80 - 100 04/04/2019 HEALTH fL 9:[address] [facility] MCH 31.0 27.0 - 04/04/2019 HEALTH 34.0 pg 9:[address] [facility] MCHC 30.4 (L) 32.0 - 04/04/2019 HEALTH 36.0 g/dL 9:[address] [facility] RDW 20.2 (H) 11.0 - 04/04/2019 HEALTH 14.5 % 9:[address] [facility] Platelet Count 142 140 - 440 04/04/2019 HEALTH thou/uL 9:[address] [facility] Mean Platelet 11.0 8.5 - 12.5 04/04/2019 HEALTH Volume fL 9:[address] [facility] Specimen Anatomical Collection Method / Collection Time Recei annie Time (Source) Location / Volume Laterality Blood specimen STRUCTURE OF RIGHT Venipuncture / 04/04/2019 6:30 9:35 (specimen) UPPER LIMB / Unknown AM QUALITY ASSURANCE SUPERVISOR FINAL AM QUALITY ASSURANCE SUPERVISOR FINAL Unknown Alison Hollins LAB - BLOOD ORDERABLES Performing Organization Address City/State/ZIP Code Phon [place] [address] [address] [facility] (ABNORMAL) Basic metabolic panel (04/04/2019 6:30 AM QUALITY ASSURANCE SUPERVISOR FINAL) [facility] gist Method Time Signature Sodium 140 136 - 145 04/04/2019 HEALTH mmol/L 11:[address] [facility] Potassium 4.8 3.5 - 5.0 04/04/2019 HEALTH mmol/L 11:[address] [facility] Chloride 104 98 - 107 04/04/2019 HEALTH mmol/L 11:[address] [facility] Carbon Dioxide 23 22 - 31 04/04/2019 HEALTH (CO2) mmol/L 11:[address] [facility] Anion Gap 13 5 - 18 04/04/2019 HEALTH mmol/L 11:[address] [facility] Glucose 84 70 - 125 04/04/2019 HEALTH mg/dL 11:[address] [facility] Calcium 10.2 8.5 - 10.5 04/04/2019 HEALTH mg/dL 11:11 AM [facility] Urea Nitrogen 92 (H) 8 - 28 04/04/2019 HEALTH mg/dL 11:[address] [facility] Creatinine 3.32 (H) 0.70 - 04/04/2019 HEALTH 1.30 mg/dL 11:[address] [facility] GFR Estimate If 22 (L) >60 04/04/2019 HEALTH Black mL/min/1.7 11:[address] LABORATORY GFR Estimate 18 (L) >60 04/04/2019 HEALTH mL/min/1.7 11:11 [address] LAB[address] Specimen Anatomical Collection Method / Collection Time Recei annie Time (Source) Location / Volume Laterality Blood specimen STRUCTURE OF RIGHT Venipuncture / 04/04/2019 6:30 9:35 (specimen) UPPER LIMB / Unknown AM QUALITY ASSURANCE SUPERVISOR FINAL AM QUALITY ASSURANCE SUPERVISOR FINAL Unknown Narrative O LABORATORY - 04/04/2019 11:11 AM QUALITY ASSURANCE SUPERVISOR FINAL Fasting Glucose reference range is 70-99 mg/dL per [place] [employer] (ADA) maryan soriano Alison Hollins LAB - BLOOD ORDERABLES Performing Organization Address City/State/ZIP Code [place] [phone] [place] [address] LABORATORY O LABORATORY [address] [place] [address], [facility] documented in this encounter Visit Diagnoses Not on filedocumented in this encounter
--- OUTSIDE RECORDS SUMMARY | 2021-10-27 05:41 | XMS_ITS | Encounter Summary ---
:1945 Author Organization [place] Address Formerly [facility] [place] [address] Care Team Providers Name Role Phone Liban Leos Primary Care Provider Ernie Pompa MD Unavailable Reason for Visit Reason Comments Hypotension Auth/Cert Specialty Diagnoses / Procedures Referred By Contact Refer red To Contact Med Surg Diagnoses UGI bleed UGI bleed 5 Medical Surgical [address] [place], [place] [address] Phone: Fax: Referral ID Status Reason Start Date Expiration Date Visits Requ ested Visits Authorized [id number] 1 1 Encounter Details Date Type Department Care Team Description 10/10/2021 Surgery [facility] Lizz, ESOPHAGOGA STRODUODENOSCOPY [place] [facility] Joce biopsies Services MD Edgard [address] [place] [address] [address] [place] [address] Surgery Details Date/Time Status Location OR Service Patient Case Case Traum a Class Class Type Case? 10/10/21 8:25 Posted OR OR 02 Gastroenterology Inpatient AM Panel 1 Procedure LRB Anes Op Region Wound Class Commen ts ESOPHAGOGASTRODUODENOSCOPY N/A Monitor Mouth II-Clean biopsies Anesthesia Care Contaminated Surgeon Surgeon Role Service Panel Joce Zamudio MD Primary Gastroenterology 1 documented in this encounter Social History Tobacco [...] Sign Reading Time Taken Comments Blood Pressure 105/51 10/10/2021 1:00 AM CDT Pulse 72 10/10/2021 7:20 AM per telephone order supervisor CDT Temperature 36.5 ??C (97.7 ??F) 10/09/2021 11:35 PM CDT Respiratory Rate 16 10/09/2021 11:35 PM CDT Oxygen Saturation 93% 10/09/2021 11:35 PM CDT Inhaled Oxygen Concentration - - Weight 112.3 kg (247 lb 8 oz) 10/10/2021 6:28 AM CDT Height 175.3 cm (5' 9) 10/09/2021 2:08 PM CDT Body Mass Index 36.86 10/09/2021 2:08 PM CDT documented in this encounter Discharge Summaries Dallin Farah DO - 10/11/2021 10:42 AM CDT Hospitalist Discharge Summary [facility] Jonatan Mejia Date of : 1945 Age: [...] daily fluticasone (FLONASE) 50 MCG/ACT nasal spray [place] 1 spray in nostril daily fluticasone-salmeterol (ADVAIR [...] ulcer and??morbid obesity??who??presents to the ED from [facility] due to concerns of hematemesis and melanotic stool. He had just finished HD (took 1.2L) and presented to [facility] due to concerns of dizziness and hematemesis. ?? Work up at [facility] showed hgb of 7.5 and soft pressures in the 100's. CT abd pelvis showed normal distal esophagus, stomach and normal liver. No symptoms of obstruction or mass. There were moderate ascites in the dependent abdomen. He received NS bolus (500cc) and 1 unit(s) PRBC and transferred to [facility] ED. Work up in our ED reveals [...] is something he should revisit with his dinkey brakeman. He does also have a history of [...] discharge was: 35 Minutes Dallin Farah DO [facility] Hospitalist [place] [address] 10/11/2021 documented in this encounter Medications at Time of Discharge Medication Sig Dispensed Refills Start Date End Date allopurinol (ZYLOPRIM) Take 100 mg by mouth 0 100 MG tablet daily atorvastatin (LIPITOR) Take 20 mg by mouth 0 11/19 20 MG tablet daily fluticasone (FLONASE) 50 [place] 1 spray in 0 12/15 MCG/ACT nasal spray nostril daily fluticasone-salmeterol Inhale 2 puffs into 0 /09/2021 (ADVAIR HFA) 115-21 the lungs 2 times [...] walker and gait belt, denies pain, GREY, [id number] on RA. VSS, continues to be anuric. Bruit/thrill present . Major Shift Events:Hemodialysis completed. ??Treatment Plan: Protonix PO , bleeding precaution. Lolly Xavier RN - 10/11/2021 6:02 PM [...] to treatment See Adult Hemodialysis flowsheet in [facility] for further details and post assessment. Machine water alarm in place and functioning. Transducer pods intact and checked every 15min. Pt returned via bed. Chlorine/Chloramine water system checked every 4 hours. Outpatient Dialysis at [facility] Post treatment report given to Delilah Goldstein RN regarding 2L of fluid removed, last BP of 104/72, and patient pain rating of 0/10. Please remove patient dressing on AVF and AVG needle sites 24 hours after dialysis. If leaking occurs please apply a Band-Aid. Frdeerick Alcaraz MD - 10/11/2021 2:02 PM CDT Renal Medicine Progress Note Assessment/Plan: # ESRD # Anemia # CKD-MBD # CAD, mitral clips and bioprosthetic AVR # COPD Plan: 3.5 hrs HD. UF ~ 2-3 liters as tolerate. No heparin. Plan discussed with range examiner and patient at the bedside. Interval History: [...] 8.7 -- 8.8 INR Recent Labs Lab 10/08/21 2044 INR 1.34* Attestation: I have reviewed today's relevant vital signs, notes, medications, labs and imaging. Frederick Alcaraz MD [facility] - Nephrology Office phone :[phone] Pager: [phone] Jovita Blackmon RN - 10/11/2021 7:05 AM [...] Farah DO - 10/10/2021 12:36 PM CDT [facility] Hospitalist Progress Note Name: Jonatan Mejia Provider: [...] morbid obesity??who presents to the ED from [facility] due to concerns of hematemesis and melanotic stool. He had just finished HD (took 1.2L) and presented to [facility] due to concerns of dizziness and hematemesis. ?? Work up at [facility] showed hgb of 7.5 and soft pressures in the 100's. CT abd pelvis showed normal distal esophagus, stomach and normal liver. No symptoms of obstruction or mass. There were moderate ascites in the dependent abdomen. He received NS bolus (500cc) and 1 unit(s) PRBC and transferred to [facility] ED. Work up in our ED reveals [...] Data Laboratory: Recent Labs Lab 10/10/2172110/10/2121410/09/21220110/09/21 1348 10/09/21 0910/08/21224610/08/21 190 WBC 7.2 -- -- -- 7.2 [...] interval not displayed. Recent Labs Lab 10/10/2192010/10/2172110/09/2191110/08/21209910/08/211901 GLC 126* 117* 98 104* 115* Recent Labs Lab 10/10/2172110/10/2121410/09/212201 HGB 9.7* 9.2* 10.3* No results for input(s): CULT in the last 168 hours. Imaging: No results found for this or any previous visit (from the past 24 hour(s)). Dallin Farah DO [facility] [place] [address] 10/10/2021 Terry Wolfe MD - 10/10/2021 9:14 [...] mcg/hr (10/09/21 1126) Current active medications and STUDENT MINISTRIES DIRECTOR medications reviewed, see medication list for details. [...] Labs Lab Test 10/10/21 0722 10/10/21 0215 10/09/212 10/09/21 1348 10/09/21 0912 10/08/21 2247 10/08/211901 WBC 7.2 -- -- -- 7.2 -- [...] results for input(s): MAG in the last 89904 hours. No results for input(s): PHOS in the last 64602 hours. Recent Labs Lab Test 10/10/21 0722 10/09/21 0912 10/08/21 190 GAMA 8.9 8.7 8.8 Lab Results Component [...] Farah DO - 10/09/2021 10:04 AM CDT [facility] Hospitalist Progress Note Name: Jonatan Mejia Provider: Dallin Farah DO [facility] Date of Service: 10/09/2021 Summary of [...] morbid obesity??who presents to the ED from [facility] due to concerns of hematemesis and melanotic stool. He had just finished HD (took 1.2L) and presented to [facility] due to concerns of dizziness and hematemesis. ?? Work up at [facility] showed hgb of 7.5 and soft pressures in the 100's. CT abd pelvis showed normal distal esophagus, stomach and normal liver. No symptoms of obstruction or mass. There were moderate ascites in the dependent abdomen. He received NS bolus (500cc) and 1 unit(s) PRBC and transferred to [facility] ED. Work up in our ED reveals [...] octreotide (sandoSTATIN) infusion ADULT 50 mcg/hr (10/09/21 09) ??? pantoprazole (PROTONIX) infusion ADULT/PEDS GREATER than [...] Labs Lab 10/09/21 0912 10/08/21 2100 10/08/21 190 NA 134 -- 136 POTASSIUM 4.8 -- 3.9 CHLORIDE 100 -- 100 CO2 28 -- 30 ANIONGAP 6 -- 6 GLC 98 104* 115* BUN 42* -- 36* CR 3.52* -- 2.80* GFRESTIMATED 17* -- 23* GAMA 8.7 -- 8.8 Recent Labs Lab 10/09/21 0912 10/08/21 2100 10/08/211901 GLC 98 104* 115* Recent Labs Lab 10/09/21 0912 10/08/21 2247 10/08/211901 HGB 8.5* 7.7* 8.1* No results for input(s): CULT in the last 168 hours. Imaging: No results found for this or any previous visit (from the past 24 hour(s)). Dallin Farah DO [facility] Hospitalist [address]ent[address] [place] [address] 10/09/2021 documented in this encounter H&P Notes Layne Rossi PA-C - 10/08/2021 9:27 PM CDT [facility] Admission History and Physical Examination NAME: Jonatan [...] morbid obesity??who presents to the ED from [facility] due to concerns of hematemesis and melanotic stool. He had just finished HD (took 1.2L) and presented to [facility] due to concerns of dizziness and hematemesis. Work up at [facility] showed hgb of 7.5 and soft bps in the 100's. CT abd pelvis showed normal distal esophagus, stomach and normal liver. No sxs of obstruction or mass. There were moderate ascites in the dependent abd. He received NS bolus (500cc) and 1u PRBC and transferred to [facility] ED. Work up in our ED reveals [...] COVID PCR TESTING STATUS: Negative 2-3 days Layne Rossi PA-C Primary Care Physician LIBAN LEOS Chief Complaint [...] morbid obesity??who presents to the ED from [facility] due to concerns of hematemesis and melanotic stool. He had just finished HD (took 1.2L) and presented to [facility] due to concerns of dizziness and hematemesis. Work up at [facility] showed hgb of 7.5 and soft bps in the 100's. CT abd pelvis showed normal distal esophagus, stomach and normal liver. No sxs of obstruction or mass. There were moderate ascites in the dependent abd. He received NS bolus (500cc) and 1u PRBC and transferred to [facility] ED. Work up in our ED reveals [...] 50 MCG/ACT nasal spray Yes Yes Sig: [place] 1 spray in nostril daily fluticasone-salmeterol (ADVAIR [...] ALT -- 16 AST -- 15 Layne Rossi PA-C [facility] Medicine October 08, 2021 Securely message with the Architectural Daily Console (learn more here) Text page via [facility] Paging/Directory Associated attestation - Fadi Viveros DO - 10/09/2021 2:30 PM CDT Physician Attestation I, Fadi Viveros DO, have reviewed and discussed with the advanced practice provider their history, physical and plan for Jonatan Mejia. I did not participate in a shared visit by interviewing or examining the patient and this should be billed as an advanced practice provider only visit. Fadi Baxa, DO Date of Service (when I saw the patient): I did not personally see this patient today. documented in this encounter Consult Notes Joce Zamudio MD - 10/09/2021 11:33 AM CDTAssociated Order(s): GASTROENTEROLOGY IP CONSULT [facility] Gastroenterology Consultation Joce Zamudio MD Patient Name: [...] He had an EGD June 28 at [facility]. Preoperative indication was Brannon's surveillance. 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 Biopsies were negative for Brannon's but did show esophagitis. Stomach showed diffuse gastritis with old blood consistent with erosive gastritis. Moderate duodenitis was noted. This was confirmed on biopsy and suspected be due to nonsteroidals likely aspirin. He reports an EGD in the remote past at [facility] that showed ulcers. He has ascites [...] Medication Sig Last Dose Taking? Auth Provider Retirement End Date allopurinol (ZYLOPRIM) 100 MG tablet [...] Yes fluticasone (FLONASE) 50 MCG/ACT nasal spray [place] 1 spray in nostril daily 10/07/2021 at [...] orders. ??? Lisinopril Cough Social History: Jonatan Jimena Terrence Family History: No primary relatives with colorectal [...] reviewed. . Recent Labs Lab Test 10/09/21 0910/08/21224610/08/21204310/08/21190104/08/19 0745 WBC 7.2 -- -- 7.1 5.2 HGB 8.5* 7.7* -- 8.1* 7.9* MCV 111* -- -- 110* 100 PLT 157 -- -- 161 140 INR -- -- 1.34* -- -- Recent Labs Lab Test 10/09/21 0912 10/08/21190104/08/19 0745 NA 134 136 137 POTASSIUM 4.8 3.9 5.2* CHLORIDE 100 100 102 CO2 28 30 22 BUN 42* 36* 101* CR 3.52* 2.80* 3.66* ANIONGAP 6 6 13 Recent Labs Lab Test 10/08/211901 ALBUMIN 2.9* BILITOTAL 0.8 ALT 16 AST 15 ALKPHOS 116 Joce Zamudio MD, FACG [facility] [phone] Terry Wolfe MD - 10/09/2021 10:29 AM CDT Consult Date: 10/09/2021 REQUESTING PHYSICIAN: Dallin Farah MD. HOLE DIGGER: Dallas Wolfe MD. REASON FOR CONSULTATION: End-stage renal disease, on hemodialysis. HISTORY OF PRESENT ILLNESS: This is a 73-year-old with end-stage renal disease who dialyzes Monday, Monday, Monday. He [place] house alone. He drives [...] lives alone in a farm house [place]. REVIEW OF SYSTEMS: He feels relatively well [...] Wolfe MD MT: ETREMT Name: JONATAN MEJIA. MRN: [id number] Account: [id number] : 1945 Consult Date: 10/09/2021 Document: [id number] Terry Wolfe MD - 10/09/2021 10:24 AM CDTAssociated Order(s): NEPHROLOGY IP CONSULT See dictation. Confirmation # [id number]. documented in this encounter ED Notes Essence Osuna RN - 10/09/2021 1:16 PM CDT Pt received one unit of RBC this morning, tolerated well, no transfusion reaction. Stepdaregina jin, aware of patient transfer to [facility]. Advanced to clear liquid diet, tolerating well. Pt will be NPO at midnight for EGD on 10/10. Kaylee Trejo RN - 10/08/2021 11:05 PM CDT [facility] ED Nurse Handoff Report Jonatan Mejia is [...] X 1. Lift room needed:No. Bariatric: No Telephone Directory Distributor Driver Needed: No Isolation: No. Infection: Not Applicable. [...] - Initial Complaint: Hypotension. Focused Assessment: Jonatan Mjeia is a 76 year old male with [...] Brianna, , and informed her of admission [facility] boarding status. She will visit tomorrow and [...] - 10/08/2021 6:30 PM CDT sent from [facility]. Dialysis patient with hypotension today. Given 500ml and 1 unit PRBC at [facility]. Florentino Ragsdale MD - 10/08/2021 6:23 PM CDT History Chief Complaint: Hypotension HPI Jonatan Mejia is a 76 year old [...] ICD-10-CM 1. UGI bleed K92.2 Scribe Disclosure: Erlin Theodore, am serving as a scribe at 6:35 [...] @ midnight.Bleeding precautions. Hemodialysis. Bedside Nurse: eugene Meclroy RN Plan of Care - Fredy Brian [...] Tele. NPO @ midnight.Bleeding precautions. Hemodialysis. Kaylee Trejo RN Pharmacy-Admission Medication History - Lisbeth Doddn Angie, [facility] - 10/08/2021 10:14 PM CDT Admission medication history interview status for this patient is complete. See [facility] admission navigator for allergy information, prior to admission medications and immunization status. Medication history interview done, indicate source(s): Patient Medication history resources (including written lists, pill bottles, clinic record): Evelin Camacho Pharmacy: [id number] - [place], [place] - [address] [facility] [phone] Changes made to STUDENT [employer]ISTRIES DIRECTOR medication list: Added: ALL Actions taken by pharmacist (provider contacted, etc):None Additional medication history information:None Medication reconciliation/reorder completed by provider prior to medication history? No Prior to Admission medications Medication Sig Last Dose Taking? Auth Provider Retirement End Date allopurinol (ZYLOPRIM) 100 MG tablet [...] Yes fluticasone (FLONASE) 50 MCG/ACT nasal spray [place] 1 spray in nostril daily 10/07/2021 at [...] Diagnosis HEMODIALYSIS SINGLE TREATMENT Routine 10/11/2021 SETUP ([facility]) 4:33 PM CDT HEMODIALYSIS DIALYZER ([facility]) Routine 10/11/2021 2:28 PM CDT IP [...] B surface antigen (10/11/2021 7:46 AM CDT) [facility] Method Time Signature Hepatitis B Nonreactive Nonreactive 10/11/2021 [facility] Surface 4:30 PM CDT CORE/PROT/EN Antigen DO Specimen Anatomical Collection Method / Collection Time Recei annie Time (Source) Location / Volume Laterality Blood STRUCTURE OF RIGHT Venipuncture / 10/11/2021 7:46 /07/2021 7:58 HAND / Unknown Unknown AM CDT AM CDT Terry Wolfe MD LAB - BLOOD ORDERABLES Performing Organization Address City/State/ZIP Code Phon e Number [facility] CORE/PROT/ENDO [facility] [place] [address] Core/Prot/Endo [address] [facility] [address], Room 3-580 (ABNORMAL) CBC with platelets (10/11/2021 6:36 AM CDT) [facility] Method Time Signature WBC Count 7.1 4.0 [...] STRUCTURE OF RIGHT Venipuncture / 10/11/2021 6:36 /07/2021 6:42 HAND / Unknown Unknown AM CDT AM CDT Dallin Farah DO LAB - BLOOD ORDERABLES Performing Organization Address City/State/ZIP Code [place] [address] Care Lab [address] Lab (1st floor, no room number) (ABNORMAL) Basic metabolic panel (10/11/2021 6:36 AM CDT) [facility] Method Time Signature Sodium 134 133 - [...] and gender (Brigette et al., NEJM, DOI: 10.1056/YQCDsa5614763) Specimen Anatomical Collection Method / Collection Time Recei annie Time (Source) Location / Volume Laterality Blood STRUCTURE OF RIGHT Venipuncture / 10/11/2021 6:36 07/2 07/2021 6:42 HAND / Unknown Unknown AM CDT AM CDT Dallin Farah DO LAB - BLOOD ORDERABLES Performing Organization Address City/State/ZIP Code Phon [place] [phone] Care Lab [address] Lab (1st floor, no room number) [...] LAB - BEAKER POCT Performing Organization Address [facility]/ZIP Code Phon e Number [place] [address] Care Lab [address] Lab (1st floor, no room number) Surgical Pathology Exam (10/10/2021 8:58 AM CDT) Component Value Ref Test Analysis Performed Pathologis t Range Method Time At Signature Case Report Surgical Pathology Report ? Case: [id number] ? Authorizing Provider: ??Carb allo, Joce ? Collected: ? 10/10/2021 08:58 AM ? 2 8:22 AM NAHID DE LEON ? MD Edgard ? CDT Ordering Location: ? [facility] ?? Received: ?10/10/2021 09:42 AM ? Main [...] entirely submitted in 1 cassette. (MARIO Saldaña ASCP) Microscopic Microscopic examination Description was performed. 2 8:22 AM LABORATORY CDT Special -Negative for H. Pylori orga nisms on immunohistochemical stains. All controls stain appropriately. RH Stains 2 8:22 AM LABORATORY CDT Performing The technical component Labs of this testing was 2 8:22 AM [facility] Case Images 2 8:22 [...] Address City/State/ZIP Code [place] [address] Care Lab [address] [facility] Lab (1st floor, no room number) UPPER GI ENDOSCOPY (10/10/2021 8:18 AM CDT) Component Value Ref Test Analysis Performed At [facility] Range Method Time Signature Upper GI [facility] RADIOLOGY Endoscopy RESULTS Patient Name: Jonatan Mejia ? Procedure Date: 09/18 8:18 AM ? Account Num flako: [id number] Date of : 1945 ?Admit Type: Inp [...] Model ?# GIF-H190, Endora # 205, SN #[id number] was ?introduced through the mouth, and advanced [...] Note Initiated On: 10/10/2021 8:18 AM MRN: ?[id number] Procedure Date: ? 10/10/2021 8:18:14 AM Total [...] CBC with platelets (10/10/2021 7:22 AM CDT) [facility] Method Time Signature WBC Count 7.2 4.0 [...] City/State/ZIP Code Phon [place] [phone] Care Lab [address] Lab (1st floor, no room number) (ABNORMAL) Basic metabolic panel (10/10/2021 7:22 AM CDT) [facility] Method Time Signature Sodium 132 (L) 133 - 144 10/10/2021 [facility] mmol/L 7:54 AM CDT Potassium 5.1 3.4 - 5.3 10/10/2021 [facility] mmol/L 7:54 AM CDT Chloride 100 94 - 109 10/10/2021 [facility] mmol/L 7:54 AM CDT Carbon Dioxide 25 20 - 32 10/10/2021 LABORATORY (CO2) mmol/L 7:54 AM CDT Anion Gap 7 3 - 14 10/10/2021 [facility] mmol/L 7:54 AM CDT Urea Nitrogen 49 (H) 7 - 30 10/10/2021 [facility] mg/dL 7:54 AM CDT Creatinine 4.60 (H) 0.66 - 10/10/2021 [facility] 1.25 mg/dL 7:54 AM CDT Calcium 8.9 8.5 - 10.1 10/10/2021 [facility] mg/dL 7:54 AM CDT Glucose 117 (H) 70 - 99 10/10/2021 LABORATORY mg/dL 7:54 AM CDT GFR Estimate 13 (L) >60 10/10/2021 LABORATORY mL/min/1.7 7:54 AM CDT 3m2 Comment: Effective March 09, 2021 eGF Rcr in adults is calculated using the 2020 CKD-EPI creatinine equation which includ es age and gender (Brigette et al., NEJM, DOI: 10.1056/APDUfj5779736) Specimen Anatomical Collection Method / Collection Time Recei annie Time (Source) Location / Volume Laterality Blood STRUCTURE OF RIGHT Venipuncture / 10/10/2021 7:22 /06/2021 7:31 UPPER LIMB / Unknown AM CDT AM CDT Unknown Dallin Farah DO LAB - BLOOD ORDERABLES Performing Organization Address City/State/ZIP Code [place] [phone] Care Lab [address] Lab (1st floor, no room number) [...] LAB - BLOOD ORDERABLES Performing Organization Address City/[facility]/[place] [address] Care Lab [address] Lab (1st floor, no room number) [...] LAB - BLOOD ORDERABLES Performing Organization Address [facility]/[place] [address] Care Lab [address] Lab (1st floor, no room number) (ABNORMAL) Hemoglobin (10/09/2021 1:48 PM CDT) P athologist Signature Hemoglobin 9.7 (L) 13.3 - 17.7 10/09/2021 [facility] LABORATORY g/dL 2:09 PM CDT Specimen Anatomical Collection Method / Collection Time Recei annie Time (Source) Location / Volume Laterality Blood STRUCTURE OF RIGHT Venipuncture / 10/09/2021 1:48 /2 05/2021 2:05 HAND / Unknown Unknown PM CDT PM CDT Dallin Farah DO LAB - BLOOD ORDERABLES Performing Organization Address City/[facility]/[place] [address] Care Lab [address] Lab (1st floor, no room number) Transfuse red blood cells (unit) No special requirements (10/09/2021 11:51 AM CDT) Dallin Simnos MD BLOOD TRANSFUSION ORDERABLES Transfuse red blood cells (unit), 1 Units No special requirements (10/09/2021 11:51 AM CDT) Dallin Simons MD BLOOD TRANSFUSION ORDERABLES (ABNORMAL) CBC with platelets (10/09/2021 9:12 AM CDT) [facility] gist Method Time Signature WBC Count [...] STRUCTURE OF RIGHT Venipuncture / 10/09/2021 9:12 /05/2021 9:34 HAND / Unknown Unknown AM CDT AM CDT Layne Rossi PA-C LAB - BLOOD ORDERABLES Performing Organization Address City/State/ZIP Code [place] [phone] Care Lab [address] Lab (1st floor, no room number) (ABNORMAL) Basic metabolic panel (10/09/2021 9:12 AM CDT) [facility] Method Time Signature Sodium 134 133 - 144 10/09/2021 [facility] LABORATORY mmol/L 9:56 AM CDT Potassium 4.8 3.4 - 5.3 10/09/2021 [facility] LABORATORY mmol/L 9:56 AM CDT Chloride 100 94 - 109 10/09/2021 [facility] LABORATORY mmol/L 9:56 AM CDT Carbon Dioxide 28 20 - 32 10/09/2021 LABORATORY (CO2) mmol/L 9:56 AM CDT Anion Gap 6 3 - 14 10/09/2021 [facility] LABORATORY mmol/L 9:56 AM CDT Urea Nitrogen 42 (H) 7 - 30 10/09/2021 [facility] LABORATORY mg/dL 9:56 AM CDT Creatinine 3.52 (H) 0.66 - 10/09/2021 [facility] LABORATORY 1.25 mg/dL 9:56 AM CDT Calcium 8.7 8.5 - 10.1 10/09/2021 [facility] LABORAT[facility] mg/dL 9:56 AM CDT Glucose 98 70 - 99 10/09/2021 [facility] LABORATORY mg/dL 9:56 AM CDT GFR Estimate 17 (L) >60 10/09/2021 [facility] LABORATORY mL/min/1.7 9:56 AM CDT 3m2 Comment: Effective March 09, 2021 eGF Rcr in adults is calculated using the 2020 CKD-EPI creatinine equation which includ es age and gender (Brigette et al., NEJ, DOI: 10.1056/YSBQeu1495323) Specimen Anatomical Collection Method / Collection Time Recei annie Time (Source) Location / Volume Laterality Blood STRUCTURE OF RIGHT Venipuncture / 10/09/2021 9:12 /05/2021 9:34 HAND / Unknown Unknown AM CDT AM CDT Layne Rossi PA-C LAB - BLOOD ORDERABLES Performing Organization Address City/State/ZIP Code [place] [address] Care Lab [address] Lab (1st floor, no room number) Prepare red blood cells (unit) (10/09/2021 6:52 AM CDT) [facility] Method Time Signature CROSSMATCH Compatible RH BLOOD BANK UNIT ABO/RH O Neg RH BLOOD BANK Unit Number [id number] RH BLOOD BANK Unit Status Transfused RH BLOOD BANK Blood Red Blood Cells RH BLOOD Component Type BANK Product Code [id number] RH BLOOD BANK CODING SYSTEM [id number] RH BLOOD BANK UNIT TYPE ISBT 9500 RH BLOOD BANK ISSUE DATE AND [id number] RH BLOOD TIME BANK Specimen (Source) Anatomical Collection Method Collection Time Re ceived Time Location / / Volume Laterality 10/09/2021 6:52 AM CDT Dallin Simons MD BLOOD BANK PRODUCT ORDERABLE S Performing Organization Address City/State/ZIP Code Phon e Number RH BLOOD BANK [address] [place] [address] Transfuse red blood cells (unit) No special requirements (10/09/2021 2:38 AM CDT) Layne Gilliamu PA-C BLOOD TRANSFUSION ORDERABLES Transfuse red blood [...] RESULTS QTc 477 ms RADIOLOGY RESULTS P [place] degrees RADIOLOGY RESULTS R AXIS 107 degrees RADIOLOGY RESULTS T [place] 33 degrees RADIOLOGY RESULTS Interpretation Atrial fibrillation RADIO LOGY ECG Right bundle branch block RESU LTS Abnormal ECG No previous ECGs available Confirmed by - [facility] Aravind PHYSICIAN ([id number]), makeup editor ANDRÉS HATCH ([id number]) on 10/11/2021 6:42:29 AM Specimen Anatomical Collection Method Collection Time Receive d Time (Source) Location / / Volume Laterality 10/09/2021 12:52 10/11/2021 6:42 AM CDT AM CDT Layne Ray Rossi PA-C ECG ORDERABLES Performing Organization Address City/[facility]/ZIP Code Phon e Number RADIOLOGY RESULTS Prepare red blood cells (unit) (10/08/2021 11:46 PM CDT) Patholo gist Method Time Signature CROSSMATCH Compatible RH BLOOD BANK UNIT ABO/RH O Neg RH BLOOD BANK Unit Number [id number] RH BLOOD BANK Unit Status Transfused RH BLOOD BANK Blood Red Blood Cells RH BLOOD Component Type BANK Product Code [id number] RH BLOOD BANK CODING SYSTEM [id number] RH BLOOD BANK UNIT TYPE ISBT 9500 RH BLOOD BANK ISSUE DATE AND RH BLOOD TIME BANK Specimen (Source) Anatomical Collection Method Collection Time Re ceived Time Location / / Volume Laterality 10/08/2021 11:46 PM CDT Layne Rossi PA-C BLOOD BANK PRODUCT ORDERABLE S Performing Organization Address City/[facility]/ZIP Code Phon e Number RH BLOOD BANK [address] [place] [address] (ABNORMAL) Hemoglobin (10/08/2021 10:47 PM CDT) athologist [...] LAB - BLOOD ORDERABLES Performing Organization Address City/[facility]/ZIP Code Phon [place] [address] Care Lab [address] [facility] Lab (1st floor, no room number) (ABNORMAL) Glucose by meter (10/08/2021 9:00 PM CDT) P athologist Signature GLUCOSE BY 104 (H) 70 - 99 10/08/2021 RH LABORATORY METER POCT mg/dL 9:07 PM CDT POC Specimen (Source) Anatomical Collection Method Collection Time Re ceived Time Location / / Volume Laterality Blood, Capillary BLOOD SPECIMEN / 10/08/2021 9:00 07/04/2021 9:07 Unknown PM CDT PM CDT Florentino Ragsdale MD LAB - BEAKER POCT Performing Organization Address City/[facility]/ZIP Code Phon e Number RH LABORATORY [facility] [place] [address] Care [facility] [address] Lab (1st floor, no room number) [...] the Xpert Xpress SARS-CoV-2 Assay on the [employer]. A dditional information about this [...] COVID-19. This test was validated by the [facility]. This laboratory is certified under the Clinical Laboratory Improvement Amendments of 1988 (CLIA-88) as qualified to perform high complexity laboratory testing. Florentino Ragsdale MD LAB - MICRO GENERAL ORDERABL ES Performing Organization Address City/State/ZIP Code Phon [place] [address] Care Lab [address] Lab (1st floor, no room number) [...] Address City/State/ZIP Code [place] [phone] Care Lab [address] Lab (1st floor, no room number) Extra Red Top Tube (10/08/2021 7:02 PM CDT) athologist Signature Hold Specimen JIC 10/08/2021 RH LABORATORY 8:18 PM CDT Specimen Anatomical Collection Method / Collection Time Recei annie Time (Source) Location / Volume Laterality Blood STRUCTURE OF RIGHT Venipuncture / 10/08/2021 7:02 /04/2021 7:10 UPPER LIMB / Unknown PM CDT PM CDT Unknown Florentino Ragsdale MD LAB - BLOOD ORDERABLES Performing Organization Address City/[facility]/ZIP Code [place] [phone] Care Lab [address] Lab (1st floor, no room number) [...] LAB - BLOOD ORDERABLES Performing Organization Address City/[facility]/ZIP Code Phon [place] [address] Care Lab [address] Lab (1st floor, no room number) Adult Type and Screen (10/08/2021 7:02 PM CDT) [facility] Method Time Signature ABO/RH(D) O NEG 10/08/2021 RH BLOOD 6:39 PM CDT BANK Antibody Negative Negative 10/08/2021 RH BLOOD Screen 6:39 PM CDT BANK SPECIMEN [id number] 10/08/2021 RH BLOOD EXPIRATION 6:39 PM CDT BANK DATE Specimen Anatomical Collection Method / Collection Time Recei annie Time (Source) Location / Volume Laterality Blood STRUCTURE OF RIGHT Venipuncture / 10/08/2021 7:02 09/18 7:10 UPPER LIMB / Unknown PM CDT PM CDT Unknown Florentino Ragsdale MD LAB - BLOOD BANK TEST ORDER Performing Organization Address [facility]/ZIP Code Phon e Number RH BLOOD BANK [address] [place] [address] (ABNORMAL) Comprehensive metabolic panel (10/08/2021 7:02 PM CDT) [employer] Method Time Signature Sodium 136 133 - 144 10/08/2021 RH LABORATORY mmol/L 7:39 PM CDT Potassium 3.9 3.4 - 5.3 10/08/2021 RH LABORATORY mmol/L 7:39 PM CDT Chloride 100 94 - 109 10/08/2021 RH LABORATORY mmol/L 7:39 PM CDT Carbon Dioxide 30 20 - 32 10/08/2021 RH LABORATORY (CO2) mmol/L 7:39 PM CDT Anion Gap 6 3 - 14 10/08/2021 RH LABORATORY mmol/L 7:39 PM CDT Urea Nitrogen [...] and gender (Brigette et al., NEJ, DOI: 10.1056/[id number]) Specimen Anatomical Collection Method / Collection Time Recei annie Time (Source) Location / Volume Laterality Blood STRUCTURE OF RIGHT Venipuncture / 10/08/2021 7:02 09/18 7:10 UPPER LIMB / Unknown PM CDT PM CDT Unknown Florentino Ragsdale MD LAB - BLOOD ORDERABLES Performing Organization Address City/State/ZIP Code [place] [address] Care Lab [address] Lab (1st floor, no room number) documented in this encounter Visit Diagnoses Diagnosis UGI bleed Hemorrhage of gastrointestinal tract, un specified Hematemesis documented in this encounter Admitting Diagnoses Diagnosis UGI bleed Hemorrhage of gastrointestinal tract, un specified documented in this encounter Administered Medications Inactive Administered Medications - up to 3 most recent administrations Medication Order MAR Action Action Date Dose Rate Site acetaminophen (TYLENOL) tablet Given 10/11/2021 11:26 AM CDT 975 mg 975 mg 975 mg, Oral, EVERY 8 [...] Given 10/09/2021 9:40 AM CDT 20 mg fluticasone-vilanterol (BREO ELLIPTA) 100-25 Given 7:59 AM [...] Given 10/09/2021 9:39 AM CDT 1 puff multivitamin RENAL Given 10/11/2021 8:15 AM CDT [...] 2 MIN PRN, opioid reversal, Starting on Mon10/10/21 at 1011, Administer intramuscular if an int [...] have not improved after 4 naloxone doses. pantoprazole (PROTONIX) EC tablet 40 mg Given 10/11/2021 6:38 AM CDT 40 mg 40 mg, Oral, EVERY MORNING BEFORE BREAKFAST, First dose on Mon10/10/21 at 1200, DO NOT CRUSH. Given 10/10/2021 [...] (COMPLETED) 1529 (New Bag - Provider: Lolly Xavier RN) Intravenous, 250 mL, ONCE IN DIALYSIS/CR RT, On 10/11/21 at 1430, For 1 dose, For patient prime during dialysis, Dialysis 0.9% sodium chloride BOLUS (COMPLETED) 1529 (New Bag - Provider: Lolly Xavier, OVI) Hemodialysis Machine, 300 mL, ONCE, On M on 10/11/21 at 1430, For 1 dose, For Dialyzer Prime. (In Dialyzer), Dialysis acetaminophen (TYLENOL) tablet 975 mg 0631 (Given - Pr ovider: Calista Recio RN)1507 (Not Given - Provider: Kaylee Trejo [...] Trejo RN) 0816 (Given - Provider: Melanie Rodriguez RN) 100 mg, Oral, DAILY, First dose on 10/09/21 at 0800 atorvastatin (LIPITOR) tablet 20 mg 0940 (Given - Provider: Essence Osuna, OVI) 0748 (Auto Hold - Provider: Orders Generic [...] Trejo RN) 0759 (Given - Provider: Phillip Cm RT) 1 puff, Inhalation, DAILY, First dose [...] Orders Generic Provider)1207 (Given - Provider: Kaylee Trejo, OVI) 0815 (Given - Provider: Melanie Rodriguez, OVI) 1 capsule, Oral, DAILY, First dose on 10/09/21 at 0800 No heparin via hemodialysis machine (COMPLETED) 1530 (Given - Provider: Lolly Xavier, RN) ONCE, 1 dose, On 10/11/21 at 1430, No rmal saline flushes may be used to maintain patency of circuit., Dialysis pantoprazole (PROTONIX) EC tablet 40 mg 1207 (Given - Provider: Kaylee Trejo RN) 0638 (Given - Provider: Jovita Blackmon, OVI) 40 mg, Oral, EVERY MORNING BEFORE BREAKF AST, First dose on 10/10/21 at 1200, DO NOT CRUSH. sevelamer carbonate (RENVELA) tablet 800 mg 0859 (Not Given - Provider: Essence Osuna RN - Reason: NPO)1346 (Not Given - Provider: Essence Osuna RN - Reason: NPO)1818 (Given - Provider: Fredy Brian, OVI) 0748 (Auto Hold - Provider: Orders Generic Provider - Reason: Transfer to a procedural area)0800 (Not Given - Provider: Kaylee Trejo RN - Reason: NPO)1133 (Unhold - Provider: Orders Generic Provider) 0816 (Given - Provider: Melanie Rodriguez RN)1232 (Given - Provider: Melanie Rodriguez, OVI)1838 (Given - Provider: Aracelis Goldstein, OVI) 800 [...] Melanie Rodriguez, RN)1838 (Given - Provider: Aracelis Goldstein RN) 3 mL, Intracatheter, EVERY 8 HOURS, Firs t dose on 10/09/21 at 0145, to lock peripheral IV dormant line 1943 (Given - Provider: Aracelis Goldstein RN) sucralfate (CARAFATE) suspension 1 g 141 9 (Not Given - Provider: Kaylee Trejo, OVI - Reason: Medication not available)1854 (Given - Provider: Aracelis Goldstein, OVI) 0639 (Given - Provider: Jovita Blackmon RN)1233 (Given - Provider: Melanie Rodriguez, OVI)1838 (Given [...] Thompson RN)0900 (Rate/Dose Verify - Provider: Essence Osuna RN)1126 (Rate/Dose Verify - Provider: Essence Osuna RN) 0715 (Paused - Provider: Kaylee Trejo RN) 50 mcg/hr (10 mL/hr), Intravenous, WILLI NUOUS, Starting on 10/08/21 at 1940, Decrease to 25 mcg for 12 hours then stop Irritant. pantoprazole (PROTONIX) 80 mg in sodium chloride 0.9 % 100 mL infusion (CANCELED) 0142 (Rate/Dose Verify - Provider: Tavo Thompson RN)0629 (New Bag - Provider: Calista Recio RN)0900 (Rate/Dose Verify - Provider: Essence Osuna RN)1126 (Rate/Dose Verify - Provider: Essence K Thon, RN) 0350 (New Bag - Provider: Eugene Sherman RN)0715 (Stopped - Provider: Kaylee Trejo, OVI) 8 [...] Orders Generic Provider)1211 (Given - Provider: Kaylee Trejo RN) 3 mL, Intracatheter, EVERY 1 MIN PRN, li ne flush, other, to ensure patency or to lock dormant line, Starting on 10/09/21 at 0143 documented in this encounter Care Teams Cylinder Dyer Relationship Specialty Start Date End Date Liban Leos PCP - General Family Medicine 10/08/21 [address] [place] [address] Ernie Pompa MD MD Nephrology 10/08/21 [address] [place] [address] documented as of this encounter
--- OUTSIDE RECORDS SUMMARY | 2021-10-27 05:41 | XMS_ITS | Encounter Summary ---
:1945 Author Organization [facility] Address [address] [place] [address] Care Team Providers Name Role Phone Unavailable Primary Care Provider Unavailable Encounter Details Date Type Department Care Team Description 10/20/2021 Orders Only [facility] Ernie Guzmán MD [phone] [place] [address] [place], [place] [phone] (Wo rk) Social History Tobacco Use Types Packs/Day Years Used Date Smoking Tobacco: Unknown Comments: Smoking History Info:Patient n ot screened Sex Assigned at Date Recorded Not on file documented as of this encounter Plan of Treatment Not on filedocumented as of this encounter Procedures Procedure Name Priority Date/Time Associated Diagnosis Comme nts HD KINETICS Routine 10/20/2021 Results for thi [...] section . SPECTRA [facility] LAB RESULTS Routine 10/20/2021 Resul ts for this procedure are i n the results section . documented in this encounter Results Spectra [facility] Lab Results (10/20/2021) P athologist Signature eNPCR 0.70 [facility] spKt/V [...] Code Phon e Number [facility] HD KINETICS (10/20/2021) P athologist Signature % Urea 71 65 - 80 % APS SPECTRA Reduction [facility] Specimen (Source) Anatomical Collection Method Collection Time Re ceived Time Location / / Volume Laterality 10/20/2021 10/21/2021 3:38 AM CDT Resulting Agency Comment Specimen source: Plasma Ernie Pompa MD LAB BLOOD ORDERABLES Performing Organization Address City/[facility]/ZIP Code Phon e Number APS SPECTRA [facility] POST CHEMISTRY (10/20/2021) athologist Signature BUN Post 11 6 - 19 APS SPECTRA Dialysis mg/dL [facility] Specimen (Source) Anatomical Collection Method Collection Time Re ceived Time Location / / Volume Laterality 10/20/2021 10/21/2021 3:38 AM CDT Narrative APS SPECTRA [facility] - 10/21/2021 Unless otherwise specified, test(s) performed at: [facility], [address] [place] [address], [place] [address] [employer]AK OPERATOR [employer]: Alhaji Noguera M.D., Ph.D For any questions, please call customer service at FREQUENCY:MONTHLY Resulting Agency Comment Specimen source: Plasma Ernie Pompa MD LAB BLOOD ORDERABLES Performing Organization Address City/State/ZIP Code Phon e Number APS SPECTRA [facility] (ABNORMAL) Spectrae Chemistry (10/20/2021) [facility] gist Method Time Signature BUN 38 (H) [...] 10/21/2021 Unless otherwise specified, test(s) performed at: [facility], [address] [place] [address], [place] [address] LEAK OPERATOR [employer]: Alhaji Noguera M.D., Ph.D For any questions, please call customer service at FREQUENCY:MONTHLY Resulting Agency Comment Specimen source: Serum Ernie Pompa MD LAB BLOOD ORDERABLES Performing Organization Address City/State/ZIP Code Phon e Number APS SPECTRA [facility] (ABNORMAL) HEMATOLOGY (10/20/2021) Analysis Performed At Patho logist Time Signature [...] 10/21/2021 Unless otherwise specified, test(s) performed at: [facility], [address] [place] [address], [place] [address] [employer]: Alhaji Noguera M.D., Ph.D For any questions, please call customer service at FREQUENCY:MONTHLY Resulting Agency Comment Specimen source: Blood Ernie Pompa MD LAB BLOOD ORDERABLES Performing Organization Address [facility] Phon e Number APS SPECTRA [facility] IMMUNO CHEMISTRY (10/20/2021) P athologist Signature Hep B Surface Negative Negative APS SPECTRA Ag [facility] Specimen (Source) Anatomical Collection Method Collection Time Re ceived Time Location / / Volume Laterality 10/20/2021 10/21/2021 3:50 AM CDT Narrative APS SPECTRA [facility] - 10/21/2021 Unless otherwise specified, test(s) performed at: [facility], [address] [place] [address], [place] [address] [employer]: Alhaji Noguera M.D., Ph.D For any questions, please call customer service at FREQUENCY:MONTHLY Resulting Agency Comment Specimen source: Plasma Ernie Pompa MD LAB BLOOD ORDERABLES Performing Organization Address [facility]/ZIP Code Phon e Number APS SPECTRA [facility] documented in this encounter Visit Diagnoses Not on filedocumented in this encounter
--- OUTSIDE RECORDS SUMMARY | 2021-10-27 05:42 | XMS_ITS | Encounter Summary ---
:1945 Author Organization [facility] Address [address] [place] [address] [address] [place] [address] Care Team Providers Name Role Phone Unavailable Primary Care Provider Unavailable Encounter Details Date Type Department Care Team Description 05/21/2021 Orders Only [facility] Ernie Guzmán MD [phone] [place] [address] [place], [place] [phone] (Wo rk) Social History Tobacco Use Types Packs/Day Years Used Date Smoking Tobacco: Unknown Comments: Smoking History Info:Patient n ot screened Sex Assigned at Date Recorded Not on file documented as of this encounter Plan of Treatment Not on filedocumented as of this encounter Procedures Procedure Name Priority Date/Time Associated Diagnosis Comme nts HD KINETICS Routine 05/21/2021 Results for thi s procedure are i n the results section . POST CHEMISTRY Routine 05/21/2021 Results for t his procedure are i n the results section . CHEMISTRY Routine 05/21/2021 Results for thi s procedure are i n the results section . SPECTRA [facility] LAB RESULTS Routine 05/21/2021 Resul ts for this procedure are i n the results section . documented in this encounter Results Spectra [facility] Lab Results (05/21/2021) P athologist Signature spKt/V 1.52 [facility] (Daugirdas II) eKt/V 1.33 [facility] ([place]) PCR 64.28 [facility] nPCR_HD 0.94 [facility] eKt/V Gotch 1.41 [facility] eNPCR 0.88 [facility] spKt/V Gotch 1.62 [facility] eKdrt/V 1.41 [facility] Specimen (Source) Anatomical Location Collection Method / Collectio n Time Received Time / Laterality Volume 05/21/2021 05/21/2021 [facility] Ordering Provider LAB BLOOD ORDERABLES Performing Organization Address City/State/ZIP Code Phon e Number [facility] HD KINETICS (05/21/2021) P athologist Signature % Urea 72 65 - 80 % APS SPECTRA Reduction [facility] Specimen (Source) Anatomical Collection Method Collection Time Re ceived Time Location / / Volume Laterality 05/21/2021 05/22/2021 1:14 PM [employer] ADMINISTRATOR Resulting Agency Comment Specimen source: Serum Ernie Pompa MD LAB BLOOD ORDERABLES Performing Organization Address City/State/ZIP Code Phon e Number APS SPECTRA [facility] POST CHEMISTRY (05/21/2021) athologist Signature BUN Post 12 6 - 19 APS SPECTRA Dialysis mg/dL [facility] Specimen (Source) Anatomical Collection Method Collection Time Re ceived Time Location / / Volume Laterality 05/21/2021 05/22/2021 11:5 6 AM [employer] ADMINISTRATOR Narrative APS SPECTRA [facility] - 05/22/2021 Unless otherwise specified, test(s) performed at: [facility], [address] [place] [address] VOCATIONAL PSYCHOLOGIST: Alec Payan M.D. For any questions, please call customer service at FREQUENCY:OTHER Resulting Agency Comment Specimen source: Plasma Ernie Pmopa MD LAB BLOOD ORDERABLES Performing Organization Address City/[facility]/ZIP Code Phon e Number APS SPECTRA [facility] (ABNORMAL) Spectrae Chemistry (05/21/2021) athologist Signature Ferritin 640 (H) 22 - 322 APS SPECTRA ng/mL [facility] BUN 43 (H) 6 - 19 APS SPECTRA mg/dL [facility] Specimen (Source) Anatomical Collection Method Collection Time Re ceived Time Location / / Volume Laterality 05/21/2021 05/22/2021 1:14 PM [employer] ADMINISTRATOR Narrative APS SPECTRA [facility] - 05/22/2021 Unless otherwise specified, test(s) performed at: [facility], [address] [place] [address] VOCATIONAL PSYCHOLOGIST: Alec Payan M.D. For any questions, please call customer service at FREQUENCY:OTHER Resulting Agency Comment Specimen source: Serum Ernie Pompa MD LAB BLOOD ORDERABLES Performing Organization Address City/State/ZIP Code Phon e Number APS SPECTRA [facility] documented in this encounter Visit Diagnoses Not on filedocumented in this encounter
--- OUTSIDE RECORDS SUMMARY | 2021-10-27 05:42 | XMS_ITS | Encounter Summary ---
:1945 Author Organization [facility] Address [address] [place] [address] Care Team Providers Name Role Phone Unavailable Primary Care Provider Unavailable Encounter Details Date Type Department Care Team Description 08/11/2021 Treatment [facility] Ernie Guzmán MD [address] [place] [address] [place], [place] [phone] (Wo rk) Social History Tobacco Use Types Packs/Day Years Used Date Smoking Tobacco: Unknown Comments: Smoking History Info:Patient n ot screened Sex Assigned at Date Recorded Not on file documented as of this encounter Miscellaneous Notes Dialysis Note - Ernie Pompa MD - 08/11/2021 10:15 AM CDT Date: August 11, 2021 Patient Name: Shaun Ocampo : 1945 Chart #: [id number] Sex: M This patient was personally seen for a basic visit as part of routine weekly dialysis care. A reviewof the dialysis treatment, blood pressure, estimated dry weight and recent lab values was made. These were discussed with the patient and staff as necessary. Treatment Data for 08/11/2021 started at:6:50 AM Dialyzer: 180NRe Optiflux Na: 138 mEq/L Bicarb: 34 mEq/L Dialysate: 2.0 K, 2.25 Ca, 1.0 Mg, 100 Dextrose (G2231) Dialysate/Machine Temp (prescribed): 37 C Dialysate/Machine Temp (actual): 36.7 C BFR (prescribed): 400 BFR (actual): 400 Prescribed time: 04:00 EDW: 109 kg Access Type: Active (In Use):AVFistula-Standard/Left Upper Arm Pre Dialysis Vitals (for 08/11/2021 6:35 AM ) Pre BP (sit): 108/53 Pre Wt: 117.3 kg Temp: 95.5 F Post Dialysis Vitals (for 08/09/2021 10:56 AM ) Post BP (sit): 131/33 Post Wt: 113.2 kg Current Dialysis Vitals (for 08/11/2021 10:01 AM ) BP (sit): 97/38 AP(-) / DUPLICATE MAKER: 177/134 Pulse: 67 Chairside data as of 08/11/2021 10:01 AM Last 3 Treatments 08/09/2021 08/06/2021 08/04/2021 EDW (kg) 109 109 109 Weight Pre (kg) 117.8 117 116.2 Weight Post (kg) 113.2 112.9 112.2 Dialytic Weight Loss (kg) -4.6 -4.1 -4 EDW Deviation (kg) 4.2 3.9 3.2 BP Sit Pre 106/49 92/49 117/38 BP Sit Post 131/33 103/47 114/46 UF Rate (mL/kg/hr) 11 10 9 Prescribed BFR 400 400 400 Average Delivered BFR 410 370 410 Prescribed Treatment Time 04:00 04:00 04:00 Actual Treatment Time 04:00 03:52 04:01 Last 3 Values 05/28/2021 04/23/2021 04/02/2021 Access Flow 1102 1249 1499 Treatment Medication Orders Medication Sig Start Date End Date Doxercalciferol (Hectorol) 3 mcg IVP Every Treatment 08/09/2021 08/08/2022 Etelcalcetide (Parsabiv) 7.5 mg IVP 3X Week Post Dialysis 05/31/2021 05/30/2022 Heparin Sodium (Porcine) 1,000 Units/mL Systemic 2000 units IVP Every Treatment 03/29/2021 03/28/2022 Heparin Sodium (Porcine) 1,000 Units/mL Systemic 1000 units IVP Every Treatment 03/29/2021 03/28/2022 Iron Sucrose (Venofer) 50 mg IVP 1X Week 07/26/2021 07/25/2022 TRAUMA COORDINATOR: Ernie Pompa MD LOCATION: [phone] SCHEDULE: -- 2nd Shift ACCESS: EDW: kg. DIALYZER: HD DURATION: NEEDLE SIZE: ANTICOAG: BATH: QB: ml/min QD: ml/min Subjective Tolerating dialysis well. 08/11: Continues to have problems with fluid gains. we have spent considerable time discussing this, he is trying to work on this but can't seem to avoid large gains. Will go to [place] for UF tomorrow, needs extra treatments every 2 weeks it looks like to maintain EDW. He does get SOB when >5K over dry weight in particular. 07/21/21: Continues to struggle with fluid gains, extra UF run scheduled tomorrow at [place]. He does feel more SOB when fluid overloaded. No new symptoms otherwise, he is enjoying the nicer weather which allows him to do more activity and not sit at home and drink fluids which he thinks will help with IDWG's. 07/14/21: Continues to have high gains, unfortunately [place] without staff to open tomorrow for extra [...] had steroid injections in knees yesterday at [facility]. To do PT as well. He pulled muscle in his lower arm on L side last week getting into car, hurt a lot but is improving. Fluid gains continue to be high, [place] not open on this week, says he will do his best withlimiting salt/fluid. HE does feel SOB with exertion with extra fluid on, no orthopnea. 05/26/21: Has SOB when >5 Kg over dry weight, extra run last week at [place] helped. Trying his best with fluid restriction. [...] extra run and we discussed going to [place] tomorrow for UF only run and he [...] again today, may need extra run at [place] if can't get down over next week. 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 06/10: Doing well overall, no new complaints, [...] Went to Urgent care -> ER in [place] yesterday,CT with R hydro but no obstructive [...] He had infiltration last week, dialyzed at [facility] on Sat and went well, [...] was done virtually with video during the COVID- pandemic. Dunn is doing well. He has same chronic [...] in place, good t/b and no aneurysms no sores on feet now that are open Medication List Medication Sig Start Date albuterol [...] 1 tablet by mouth once a day metoprolol succinate 25 mg tablet extended release [...] Severity Onset Date lisinopril Cough Medications reviewed and no changes were made. BUN mg/dL 44 (07/21/21) 66 (06/23/21) 43 (05/21/21) 48 (05/19/21) 61 (04/21/21) UREA NITROGEN (MG/DL) IN SER/PLAS - POST DIALYSIS mg/dL 14 (07/21/21) 19 (06/23/21) 12 (05/21/21) 15 (05/19/21) 17 (04/21/21) URR % 68 (07/21/21) 71 (06/23/21) 72 (05/21/21) 69 (05/19/21) 72 (04/21/21) spKt/V Gotch 1.42 (07/21/21) 1.62 (05/21/21) 1.45 (05/19/21) 1.6 (04/21/21) 1.73 (03/24/21) eKdrt/V 1.24 (07/21/21) 1.41 (05/21/21) 1.26 (05/19/21) 1.39 (04/21/21) 1.5 (03/24/21) spKt/V (Daugirdas II) 1.3700 (07/21/21) 1.4700 (06/23/21) 1.5200 (05/21/21) 1.3800 (05/19/21) 1.5300 (04/21/21) HEMOGLOBIN (G/DL) IN BLOOD g/dL 9.1 (08/04/21) 9.9 (07/28/21) 9.6 (07/21/21) 9.8 (07/14/21) 9.2 (07/07/21) PLATELETS 1000/mcL 183 (07/21/21) 149 (05/19/21) 155 (04/21/21) 135 (03/24/21) 190 (02/17/21) IRON SATURATION % 36 (07/21/21) 31 (06/23/21) 38 (05/26/21) 35 (05/19/21) 27 (04/21/21) FERRITIN ng/mL 640 (06/23/21) 640 (05/21/21) 857 (03/24/21) 837 (02/24/21) 925 (01/27/21) ALBUMIN (G/DL) g/dL 3.5 (07/21/21) 3.7 (06/23/21) 3.7 (05/19/21) Sodium mEq/L 138 (07/21/21) 137 (06/23/21) 136 (05/19/21) POTASSIUM (MMOL/L) IN SER/PLAS mEq/L 5.5 (07/21/21) 4.9 (06/23/21) 5.0 (05/19/21) BICARBONATE (CO2) mEq/L 25 (07/21/21) 22 (06/23/21) 20 (05/19/21) 25 OH VITAMIN D ng/mL 38.3 (03/24/21) 37.9 (09/23/20) 37.9 (03/25/20) BUN/CREATININE (MASS RATIO) IN SER/PLAS 7.0 (07/21/21) 10.0 (06/23/21) 7.8 (05/19/21) Calcium mg/dL 9.0 (08/04/21) 8.6 (07/21/21) 8.8 (07/07/21) Calcium Phos Product 38 (07/21/21) 40 (06/23/21) 43 (05/19/21) CALCIUM (MG/DL) CORRECTED FOR ALBUMIN IN SER/PLAS mg/dL 9.0 (07/21/21) 9.2 (06/23/21) 9.3 (05/19/21) PHOSPHATE (MG/DL) IN SER/PLAS mg/dL 4.4 (07/21/21) 4.4 (06/23/21) 4.7 (05/19/21) IPTH pg/mL 986 (08/04/21) 1142 (07/07/21) 1243 (06/23/21) Vascular Access Assessment: Type of access: [id number] Surgeon - Lary GARDNER Access working well Impression and Plan Stable dialysis overall, no changes to prescription made Parsabiv to continue, calcitriol increase as able with Ca lower on this to get PTH to goal but is improving and phos is controlled Extra UF run tomorrow in [place], ongoing extra UF runs will likely be necessary with inability toget to EDW consistently Ernie Pompa MD [ Signed And locked electronically On 08/11/2021 at 10:17:39 AM ] Transcribed: Ernie Pompa ( 08/11/2021 ) documented in this encounter Plan of Treatment Not on filedocumented as of this encounter Visit Diagnoses Not on filedocumented in this encounter
--- OUTSIDE RECORDS SUMMARY | 2021-10-27 05:42 | XMS_ITS | Encounter Summary ---
:1945 Author Organization [facility] Address [address] [place] [address] Care Team Providers Name Role Phone Unavailable Primary Care Provider Unavailable Encounter Details Date Type Department Care Team Description 04/21/2021 Orders Only [facility] Ernie Guzmán MD [phone] [place] [address] [place], [place] [phone] (Wo rk) Social History Tobacco Use Types Packs/Day Years Used Date Smoking Tobacco: Unknown Comments: Smoking History Info:Patient n ot screened Sex Assigned at Date Recorded Not on file documented as of this encounter Plan of Treatment Not on filedocumented as of this encounter Procedures Procedure Name Priority Date/Time Associated Diagnosis Comme nts HD KINETICS Routine 04/21/2021 Results for thi s procedure are i n the results section . POST CHEMISTRY Routine 04/21/2021 Results for t his procedure are i n the results section . IMMUNO CHEMISTRY Routine 04/21/2021 Results for this procedure are i n the results section . HEMATOLOGY Routine 04/21/2021 Results for thi s procedure are i n the results section . CHEMISTRY Routine 04/21/2021 Results for thi s procedure are i n the results section . CHEMISTRY Routine 04/21/2021 Results for thi s procedure are i n the results section . SPECTRA [facility] LAB RESULTS Routine 04/21/2021 Resul ts for this procedure are i n the results section . documented in this encounter Results Spectra [facility] Lab Results (04/21/2021) P athologist Signature spKt/V 1.53 [facility] (Daugirdas II) PCR 76.97 [facility] nPCR_HD 1.16 [facility] eKdrt/V 1.39 [facility] eKt/V 1.33 [facility] ([place]) eNPCR 1.04 [facility] spKt/V Gotch 1.60 [facility] eKt/V Gotch 1.39 [facility] Specimen (Source) Anatomical Location Collection Method / Collectio n Time Received Time / Laterality Volume 04/21/2021 04/21/2021 [place] Ordering Provider LAB BLOOD ORDERABLES Performing Organization Address City/[facility]/ZIP Code Phon e Number [facility] (ABNORMAL) Spectrae Chemistry (04/21/2021) athologist Signature PTH 1,441 (H) 16 - 80 APS SPECTRA pg/mL [facility] Specimen (Source) Anatomical Collection Method Collection Time Re ceived Time Location / / Volume Laterality 04/21/2021 04/22/2021 1:39 PM PACKAGE MAKER Narrative APS SPECTRA [facility] - 04/23/2021 Unless otherwise specified, test(s) performed at: [facility], [address] [place], [place] [id number] BRICK AND BLOCKER AID LABOR: Alec Payan M.D. For any questions, please call customer service at FREQUENCY:MONTHLY Resulting Agency Comment Specimen source: Plasma Ernie Pompa MD LAB BLOOD ORDERABLES Performing Organization Address [facility] Phon e Number APS SPECTRA [facility] IMMUNO CHEMISTRY (04/21/2021) athologist [facility] Hep B Surface Negative Negative APS SPECTRA Ag [facility] Specimen (Source) Anatomical Collection Method Collection Time Re ceived Time Location / / Volume Laterality 04/21/2021 04/22/2021 3:00 PM PACKAGE MAKER Narrative APS SPECTRA [facility] - 04/22/2021 Unless otherwise specified, test(s) performed at: [facility], [address] [place] [id number] [employer] AID LABOR: Alec Payan M.D. For any questions, please call customer service at FREQUENCY:MONTHLY Resulting Agency Comment Specimen source: Serum Ernie Pompa MD LAB BLOOD ORDERABLES Performing Organization Address City/[facility]/[place]IP [facility] [place] Number APS SPECTRA [facility] HD KINETICS (04/21/2021) athologist Signature % Urea 72 65 - 80 % APS SPECTRA Reduction [facility] Specimen (Source) Anatomical Collection Method Collection Time Re ceived Time Location / / Volume Laterality 04/21/2021 04/22/2021 5:02 PM PACKAGE MAKER Resulting Agency Comment Specimen source: Plasma Ernie Pompa MD LAB BLOOD ORDERABLES Performing Organization Address City/State/ZIP Code Phon e Number APS SPECTRA [facility] POST CHEMISTRY (04/21/2021) P athologist Signature BUN Post 17 6 - 19 APS SPECTRA Dialysis mg/dL [facility] Specimen (Source) Anatomical Collection Method Collection Time Re ceived Time Location / / Volume Laterality 04/21/2021 04/22/2021 5:01 PM PACKAGE MAKER Narrative APS SPECTRA [facility] - 04/22/2021 Unless otherwise specified, test(s) performed at: [facility], [address] [place] [address] [employer] AID LABOR: Alec Payan M.D. For any questions, please call customer service at FREQUENCY:MONTHLY Resulting Agency Comment Specimen source: Plasma Ernie Pompa MD LAB BLOOD ORDERABLES Performing Organization Address City/State/ZIP Code Phon e Number APS SPECTRA [facility] (ABNORMAL) Spectrae Chemistry (04/21/2021) Patholo gist Method Time Signature BUN 61 (H) 6 - 19 APS SPECTRA mg/dL [facility] Creatinine 6.90 (H) 0.60 - APS SPECTRA 1.30 mg/dL [facility] BUN/Creatinine 8.8 (L) 10.0 - APS SPECTRA Ratio 20.0 [facility] Sodium 136 136 - 145 APS SPECTRA mEq/L [facility] Potassium 5.4 (H) 3.5 - 5.1 APS SPECTRA mEq/L [facility] Chloride 98 96 - 108 APS SPECTRA mEq/L [facility] Bicarbonate 20 (L) 22 - 29 APS SPECTRA (CO2) mEq/L [facility] Calcium 9.6 8.4 - 10.2 APS SPECTRA mg/dL [facility] Corrected 9.6 8.4 - 10.2 APS SPECTRA Calcium mg/dL [facility] Comment: Corrected Calcium is not equivalent to m easured Ionized Calcium. Phosphorus 4.7 (H) 2.6 - 4.5 mg/dL APS SPECTRA K [facility] Calcium Phosphorus Product 45 0 - 54 APS SPECTRA [facility] Calcium Phosporus Product, Cor 45 0 - 54 APS SPECTRA [facility] Total Protein 6.7 6.0 - 8.5 g/dL APS SPECTRA [facility] Albumin 4.0 3.5 - 5.2 g/dL APS SPECTRA [facility] [place] Globulin, Total 2.7 2.0 - 4.0 g/dL APS SPECT RA [facility] A/G Ratio 1.5 1.0 - 2.0 APS SPECTRA [facility] Iron 72 45 - 160 mcg/dL APS SPECTRA [place] [facility]N UIBC 196 155 - 355 mcg/dL APS SPECTRA K [facility] TIBC 268 185 - 515 mcg/dL APS SPECTRA K [facility] Iron Saturation (TSat) 27 20 - 55 % APS SPE CTRA [facility] Specimen (Source) Anatomical Collection Method Collection Time Re ceived Time Location / / Volume Laterality 04/21/2021 04/22/2021 3:00 PM PACKAGE MAKER Narrative APS SPECTRA [facility] - 04/22/2021 Unless otherwise specified, test(s) performed at: [facility], [address] [place] [address] [employer] AID LABOR: Alec Payan M.D. For any questions, please call customer service at FREQUENCY:MONTHLY Resulting Agency Comment Specimen source: Serum Ernie Pompa MD LAB BLOOD ORDERABLES Performing Organization Address City/State/ZIP Code Phon e Number APS SPECTRA [facility] (ABNORMAL) HEMATOLOGY (04/21/2021) Analysis Performed At Patho logist Time Signature WBC 8.77 4.80 - APS SPECTRA 10.80 [facility] 1000/mcL RBC 3.26 (L) 4.70 - APS SPECTRA 6.10 [facility] mill/mcL Hemoglobin 10.8 (L) 14.0 - APS SPECTRA 18.0 g/dL [facility] Hemoglobin x 3 32.4 (L) 42.0 - APS SPECTRA 54.0 % [facility] Hematocrit 34.8 (L) 42.0 - APS SPECTRA 52.0 % [facility] MCV 107 (H) 80 - 100 APS SPECTRA fl [facility] MCH 33.3 (H) 27.0 - APS SPECTRA 31.0 pg [facility] MCHC 31.1 30.0 - APS SPECTRA 36.0 g/dL [facility] RDW 16.9 (H) 11.5 - APS SPECTRA 14.5 % [facility] Platelets 155 130 - 400 APS SPECTRA 1000/mcL [facility] Specimen (Source) Anatomical Collection Method Collection Time Re ceived Time Location / / Volume Laterality 04/21/2021 04/22/2021 1:17 PM PACKAGE MAKER Narrative APS SPECTRA [facility] - 04/22/2021 Unless otherwise specified, test(s) performed at: [facility], [address] [place] [address] [employer] AID LABOR: Alec Payan M.D. For any questions, please call customer service at FREQUENCY:MONTHLY Resulting Agency Comment Specimen source: Blood Ernie Pompa MD LAB BLOOD ORDERABLES Performing Organization Address City/State/ZIP Code Phon e Number APS SPECTRA [facility] documented in this encounter Visit Diagnoses Not on filedocumented in this encounter
--- OUTSIDE RECORDS SUMMARY | 2021-10-27 05:42 | XMS_ITS | Encounter Summary ---
:1945 Author Organization [facility] Address [address] [place] [address] Care Team Providers Name Role Phone Unavailable Primary Care Provider Unavailable Encounter Details Date Type Department Care Team Description 08/04/2021 Orders Only [facility] f Ernie Guzmán MD [phone] [place] [address] [place], [place] [phone] (Wo rk) Social History Tobacco Use Types Packs/Day Years Used Date Smoking Tobacco: Unknown Comments: Smoking History Info:Patient n ot screened Sex Assigned at Date Recorded Not on file documented as of this encounter Plan of Treatment Not on filedocumented as of this encounter Procedures Procedure Name Priority Date/Time Associated Diagnosis Comme nts HEMATOLOGY Routine 08/04/2021 Results for thi s procedure are in the resu lts section. CHEMISTRY Routine 08/04/2021 Results for thi s procedure are in the resu lts section. CHEMISTRY Routine 08/04/2021 Results for thi s procedure are in the resu lts section. documented in this encounter Results Spectrae Chemistry (08/04/2021) P athologist Signature Calcium 9.0 8.4 - 10.2 APS SPECTRA mg/dL [facility] Specimen (Source) Anatomical Collection Method Collection Time Re ceived Time Location / / Volume Laterality 08/04/2021 2021 6:30 PM CDT Narrative APS SPECTRA [facility] - 08/06/2021 Unless otherwise specified, test(s) performed at: [facility], [address] [place] [id number] TOOTH CUTTER CLUTCH: Alec Payan M.D. For any questions, please call customer service at FREQUENCY:OTHER Resulting Agency Comment Specimen source: Serum Ernie Pompa MD LAB BLOOD ORDERABLES Performing Organization Address City/[facility]/ZIP Code Phon e Number APS SPECTRA [facility] (ABNORMAL) Spectrae Chemistry (08/04/2021) P athologist Signature PTH 986 (H) 16 - 80 APS SPECTRA pg/mL [facility] Specimen (Source) Anatomical Collection Method Collection Time Re ceived Time Location / / Volume Laterality 08/04/2021 2021 4:27 PM CDT Narrative APS SPECTRA [facility] - 2021 Unless otherwise specified, test(s) performed at: [facility], [address] [place], [place] [id number] TOOTH CUTTER CLUTCH: Alec Payan M.D. For any questions, please call customer service at FREQUENCY:OTHER Resulting Agency Comment Specimen source: Plasma Ernie Pompa MD LAB BLOOD ORDERABLES Performing Organization Address [facility] Phon e Number APS SPECTRA [facility] (ABNORMAL) HEMATOLOGY (08/04/2021) Analysis Performed At Patho logist Time Signature Hemoglobin 9.1 (L) 14.0 - APS SPECTRA 18.0 g/dL [facility] Hemoglobin x 3 27.3 (L) 42.0 - APS SPECTRA 54.0 % [facility] Specimen (Source) Anatomical Collection Method Collection Time Re ceived Time Location / / Volume Laterality 08/04/2021 2021 3:41 PM CDT Narrative APS SPECTRA [facility] - 2021 Unless otherwise specified, test(s) performed at: [facility], [address] [place] [address] TOOTH CUTTER CLUTCH: Alec Payan M.D. For any questions, please call customer service at FREQUENCY:OTHER Resulting Agency Comment Specimen source: Blood Ernie Pompa MD LAB BLOOD ORDERABLES Performing Organization Address City/[facility] Phon e Number APS SPECTRA [facility] documented in this encounter Visit Diagnoses Not on filedocumented in this encounter
--- OUTSIDE RECORDS SUMMARY | 2021-10-27 05:42 | XMS_ITS | Encounter Summary ---
:1945 Author Organization [facility] Address [address] [place] [address] Care Team Providers Name Role Phone Unavailable Primary Care Provider Unavailable Encounter Details Date Type Department Care Team Description 05/26/2021 Orders Only [facility] O f Ernie Guzmán MD [phone] [place] [address] [place], [place] [phone] (Wo rk) Social History Tobacco Use Types Packs/Day Years Used Date Smoking Tobacco: Unknown Comments: Smoking History Info:Patient n ot screened Sex Assigned at Date Recorded Not on file documented as of this encounter Plan of Treatment Not on filedocumented as of this encounter Procedures Procedure Name Priority Date/Time Associated Diagnosis Comme nts HEMATOLOGY Routine 05/26/2021 Results for thi s procedure are in the resu lts section. CHEMISTRY Routine 05/26/2021 Results for thi s procedure are in the resu lts section. CHEMISTRY Routine 05/26/2021 Results for thi s procedure are in the resu lts section. documented in this encounter Results Spectrae Chemistry (05/26/2021) P athologist Signature Calcium 9.7 8.4 - 10.2 APS SPECTRA mg/dL [facility] Iron 102 45 - 160 APS SPECTRA mcg/dL [facility] UIBC 170 155 - 355 APS SPECTRA mcg/dL [facility] TIBC 272 185 - 515 APS SPECTRA mcg/dL [facility] Iron Saturation 38 20 - 55 % APS SPECTRA (TSat) [facility] Specimen (Source) Anatomical Collection Method Collection Time Re ceived Time Location / / Volume Laterality 05/26/2021 05/27/2021 6:19 PM LAN ADMINISTRATOR Narrative APS SPECTRA [facility] - 05/28/2021 Unless otherwise specified, test(s) performed at: [facility], [address] [place], [place] [id number] FEEDER/FOLDER: Alec Payan M.D. For any questions, please call customer service at FREQUENCY:OTHER Resulting Agency Comment Specimen source: Serum Ernie Pompa MD LAB BLOOD ORDERABLES Performing Organization Address City/[facility]/ZIP Code Phon e Number APS SPECTRA [facility] (ABNORMAL) Spectrae Chemistry (05/26/2021) P athologist Signature PTH 1,356 (H) 16 - 80 APS SPECTRA pg/mL [facility] Specimen (Source) Anatomical Collection Method Collection Time Re ceived Time Location / / Volume Laterality 05/26/2021 05/27/2021 10:2 3 AM LAN ADMINISTRATOR Narrative APS SPECTRA [facility] - 05/27/2021 Unless otherwise specified, test(s) performed at: [facility], [address] [place], [place] [id number] FEEDER/FOLDER: Alec Payan M.D. For any questions, please call customer service at FREQUENCY:OTHER Resulting Agency Comment Specimen source: Plasma Ernie Pompa MD LAB BLOOD ORDERABLES Performing Organization Address City/[facility] Code Phon e Number APS SPECTRA [facility] (ABNORMAL) HEMATOLOGY (05/26/2021) Patholo gist Method Time Signature Hemoglobin 10.6 (L) 14.0 - APS SPECTRA 18.0 g/dL [facility] Hemoglobin x 3 31.8 (L) 42.0 - APS SPECTRA 54.0 % [facility] Reticulocyte 35.7 (H) 25.4 - APS SPECTRA Hemoglobin 31.8 pg [facility] Specimen (Source) Anatomical Collection Method Collection Time Re ceived Time Location / / Volume Laterality 05/26/2021 05/27/2021 10:1 9 AM LAN ADMINISTRATOR Narrative APS SPECTRA [facility] - 05/27/2021 Unless otherwise specified, test(s) performed at: [facility], [address] [place], [place] [id number] FEEDER/FOLDER: Alec Payan M.D. For any questions, please call customer service at FREQUENCY:OTHER Resulting Agency Comment Specimen source: Blood Ernie Pompa MD LAB BLOOD ORDERABLES Performing Organization Address City/State/ZIP Code Phon e Number APS SPECTRA [facility] documented in this encounter Visit Diagnoses Not on filedocumented in this encounter
--- OUTSIDE RECORDS SUMMARY | 2021-10-27 05:42 | XMS_ITS | Encounter Summary ---
:1945 Author Organization [facility] Address [address] [place] [address] Care Team Providers Name Role Phone Unavailable Primary Care Provider Unavailable Encounter Details Date Type Department Care Team Description 05/17/2021 Orders Only [facility] Ernie Guzmán MD [address] [place] [address] [place], [place] [phone] (Wo rk) Social History Tobacco Use Types Packs/Day Years Used Date Smoking Tobacco: Unknown Comments: Smoking History Info:Patient n ot screened Sex Assigned at Date Recorded Not on file documented as of this encounter Plan of Treatment Not on filedocumented as of this encounter Procedures Procedure Name Priority Date/Time Associated Diagnosis Comme nts CHEMISTRY Routine 05/17/2021 Results for thi s procedure are in the resu lts section. CHEMISTRY Routine 05/17/2021 Results for thi s procedure are in the resu lts section. documented in this encounter Results (ABNORMAL) Spectrae Chemistry (05/17/2021) P athologist Signature PTH 1,115 (H) 16 - 80 APS [facility] pg/mL KSN Specimen (Source) Anatomical Collection Method Collection Time Re ceived Time Location / / Volume Laterality 05/17/2021 05/18/2021 1:48 PM HISTOLOGIC TECHNICIAN Narrative [facility] - 05/18/2021 Unless otherwise specified, test(s) performed at: [facility], [address] [place] [id number] [employer] STONEMASON: Alec Payan M.D. For any questions, please call customer service at FREQUENCY:OTHER Resulting Agency Comment Specimen source: Plasma Ernie Pompa MD LAB BLOOD ORDERABLES Performing Organization Address City/State/ZIP Code Phon e Number [facility] Spectrae Chemistry (05/17/2021) P athologist Signature Calcium 9.6 8.4 - 10.2 [facility] mg/dL [facility] Specimen (Source) Anatomical Collection Method Collection Time Re ceived Time Location / / Volume Laterality 05/17/2021 05/18/2021 11:1 2 AM HISTOLOGIC TECHNICIAN Narrative [facility] - 05/18/2021 Unless otherwise specified, test(s) performed at: [facility], [address] [place] [address] [employer] STONEMASON: Alec Payan M.D. For any questions, please call customer service at FREQUENCY:OTHER Resulting Agency Comment Specimen source: Serum Ernie Pompa MD LAB BLOOD ORDERABLES Performing Organization Address City/[facility]/ZIP Code Phon e Number [facility] documented in this encounter Visit Diagnoses Not on filedocumented in this encounter
--- OUTSIDE RECORDS SUMMARY | 2021-10-27 05:42 | XMS_ITS | Encounter Summary ---
:1945 Author Organization [facility] Address [address] [place] [address] Care Team Providers Name Role Phone Unavailable Primary Care Provider Unavailable Encounter Details Date Type Department Care Team Description 07/14/2021 Treatment [facility] Ernie Guzmán MD [address] [place] [address] [place], [place] [phone] (Wo rk) Social History Tobacco Use Types Packs/Day Years Used Date Smoking Tobacco: Unknown Comments: Smoking History Info:Patient n ot screened Sex Assigned at Date Recorded Not on file documented as of this encounter Miscellaneous Notes Dialysis Note - Ernie Pompa MD - 07/14/2021 9:22 AM CDT Date: Jul 14, 2021 Patient Name: Shaun Ocampo : 1945 Chart #: [id number] Sex: M This patient was personally seen for a basic visit as part of routine weekly dialysis care. A reviewof the dialysis treatment, blood pressure, estimated dry weight and recent lab values was made. These were discussed with the patient and staff as necessary. Treatment Data for 07/14/2021 started at:7:03 AM Dialyzer: 180NRe Optiflux Na: 138 mEq/L Bicarb: 34 mEq/L Dialysate: 2.0 K, 2.25 Ca, 1.0 Mg, 100 Dextrose (G2231) Dialysate/Machine Temp (prescribed): 37 C Dialysate/Machine Temp (actual): 36.1 C BFR (prescribed): 400 BFR (actual): 400 Prescribed time: 04:00 EDW: 109 kg Access Type: Active (In Use):AVFistula-Standard/Left Upper Arm Pre Dialysis Vitals (for 07/14/2021 6:52 AM ) Pre BP (sit): 102/43 Pre Wt: 117.2 kg Temp: 97.8 F Post Dialysis Vitals (for 07/12/2021 11:13 AM ) Post BP (sit): 116/48 Post Wt: 112.9 kg Current Dialysis Vitals (for 07/14/2021 9:01 AM ) BP (sit): 99/43 AP(-) / SPARERIBS TRIMMER: 152/133 Pulse: 67 Chairside data as of 07/14/2021 9:01 AM Last 3 Treatments 07/12/2021 07/09/2021 07/07/2021 EDW (kg) 109 109 109 Weight Pre (kg) 116.9 115.4 115.7 Weight Post (kg) 112.9 112.3 111.8 Dialytic Weight Loss (kg) -4 -3.1 -3.9 EDW Deviation (kg) 3.9 3.3 2.8 BP Sit Pre 96/36 100/51 108/43 BP Sit Post 116/48 104/47 107/54 UF Rate (mL/kg/hr) 9 7 9 Prescribed BFR 400 400 400 Average Delivered BFR 400 410 410 Prescribed Treatment Time 04:00 04:00 04:00 Actual Treatment Time 04:00 04:00 04:00 Last 3 Values 05/28/2021 04/23/2021 04/02/2021 Access Flow 1102 1249 1499 Treatment Medication Orders Medication Sig Start Date End Date Doxercalciferol (Hectorol) 2 mcg IVP Every Treatment 06/30/2021 06/29/2022 Etelcalcetide (Parsabiv) 7.5 mg IVP 3X Week Post Dialysis 05/31/2021 05/30/2022 Heparin Sodium (Porcine) 1,000 Units/mL Systemic 2000 units IVP Every Treatment 03/29/2021 03/28/2022 Heparin Sodium (Porcine) 1,000 Units/mL Systemic 1000 units IVP Every Treatment 03/29/2021 03/28/2022 Iron Sucrose (Venofer) 100 mg IVP Every Treatment 07/02/2021 07/23/2021 Mircera 75 mcg IVP Every 4 weeks 06/23/2021 06/22/2022 GENERAL FARM HAND: Ernie Pompa MD LOCATION: [place] [phone] SCHEDULE: -- 2nd Shift ACCESS: EDW: kg. DIALYZER: HD DURATION: NEEDLE SIZE: ANTICOAG: BATH: QB: ml/min QD: ml/min Subjective Tolerating dialysis well. 07/14/21: Continues to have high gains, unfortunately [facility] without staff to open tomorrow for extra [...] had steroid injections in knees yesterday at [facility]. To do PT as well. He pulled muscle in his lower arm on L side last week getting into car, hurt a lot but is improving. Fluid gains continue to be high, [facility] not open on this week, says he will do his best withlimiting salt/fluid. HE does feel SOB with exertion with extra fluid on, no orthopnea. 05/26/21: Has SOB when >5 Kg over dry weight, extra run last week at [facility] helped. Trying his best with fluid restriction. [...] extra run and we discussed going to [facility] tomorrow for UF only run and he [...] again today, may need extra run at [facility] if can't get down over next week. 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 06/10: Doing well overall, no new complaints, [...] Went to Urgent care -> ER in [place] yesterday,CT with R hydro but no obstructive [...] He had infiltration last week, dialyzed at [facility] on Sat and went well, access [...] Regular rhythm. Edema - 1+ leg edema. stable Access - AVF intact with needles in [...] and no changes were made. BUN mg/dL 66 (06/23/21) 43 (05/21/21) 48 (05/19/21) 61 (04/21/21) 63 (03/24/21) UREA NITROGEN (MG/DL) IN SER/PLAS - POST DIALYSIS mg/dL 19 (06/23/21) 12 (05/21/21) 15 (05/19/21) 17 (04/21/21) 16 (03/24/21) URR % 71 (06/23/21) 72 (05/21/21) 69 (05/19/21) 72 (04/21/21) 75 (03/24/21) spKt/V Gotch 1.62 (05/21/21) 1.45 (05/19/21) 1.6 (04/21/21) 1.73 (03/24/21) 1.56 (02/17/21) eKdrt/V 1.41 (05/21/21) 1.26 (05/19/21) 1.39 (04/21/21) 1.5 (03/24/21) 1.36 (02/17/21) spKt/V (Daugirdas II) 1.4700 (06/23/21) 1.5200 (05/21/21) 1.3800 (05/19/21) 1.5300 (04/21/21) 1.6300 (03/24/21) HEMOGLOBIN (G/DL) IN BLOOD g/dL 9.2 (07/07/21) 9.1 (06/30/21) 9.6 (06/23/21) 10.9 (06/16/21) 10.8 (06/09/21) PLATELETS 1000/mcL 149 (05/19/21) 155 (04/21/21) 135 (03/24/21) 190 (02/17/21) 186 (01/20/21) IRON SATURATION % 31 (06/23/21) 38 (05/26/21) 35 (05/19/21) 27 (04/21/21) 28 (03/24/21) FERRITIN ng/mL 640 (06/23/21) 640 (05/21/21) 857 (03/24/21) 837 (02/24/21) 925 (01/27/21) ALBUMIN (G/DL) g/dL 3.7 (06/23/21) 3.7 (05/19/21) 4.0 (04/21/21) Sodium mEq/L 137 (06/23/21) 136 (05/19/21) 136 (04/21/21) POTASSIUM (MMOL/L) IN SER/PLAS mEq/L 4.9 (06/23/21) 5.0 (05/19/21) 5.4 (04/21/21) BICARBONATE (CO2) mEq/L 22 (06/23/21) 20 (05/19/21) 20 (04/21/21) 25 OH VITAMIN D ng/mL 38.3 (03/24/21) 37.9 (09/23/20) 37.9 (03/25/20) BUN/CREATININE (MASS RATIO) IN SER/PLAS 10.0 (06/23/21) 7.8 (05/19/21) 8.8 (04/21/21) Calcium mg/dL 8.8 (07/07/21) 9.0 (06/23/21) 9.7 (05/26/21) Calcium Phos Product 40 (06/23/21) 43 (05/19/21) 45 (04/21/21) CALCIUM (MG/DL) CORRECTED FOR ALBUMIN IN SER/PLAS mg/dL 9.2 (06/23/21) 9.3 (05/19/21) 9.6 (04/21/21) PHOSPHATE (MG/DL) IN SER/PLAS mg/dL 4.4 (06/23/21) 4.7 (05/19/21) 4.7 (04/21/21) IPTH pg/mL 1142 (07/07/21) 1243 (06/23/21) 1356 (05/26/21) Vascular Access Assessment: Type of access: [email or web address] Surgeon - Lary GARDNER Access working well Impression and Plan Stable dialysis overall, no changes to prescription made Parsabiv titrated with PTH >1000 Fluid gains discussed again May need midodrine for BP support, will monitor for now and extra 30 min on Monday to see if we can get close to dry weight before weekend. May need extra UF run and may need to go further to get this as [facility] not open but he doesn't feel he can drive that far Ernie Pompa MD [ Signed And locked electronically On 07/14/2021 at 09:24:45 AM ] Transcribed: Ernie Pompa ( 07/14/2021 ) documented in this encounter Plan of Treatment Not on filedocumented as of this encounter Visit Diagnoses Not on filedocumented in this encounter
--- OUTSIDE RECORDS SUMMARY | 2021-10-27 05:42 | XMS_ITS | Encounter Summary ---
:1945 Author Organization [facility] Address [address] [place] [address] Care Team Providers Name Role Phone Unavailable Primary Care Provider Unavailable Encounter Details Date Type Department Care Team Description 03/24/2021 Treatment [facility] f Ernie Guzmná MD [address] [place] [address] [place], [place] [phone] (Wo rk) Social History Tobacco Use Types Packs/Day Years Used Date Smoking Tobacco: Unknown Comments: Smoking History Info:Patient n ot screened Sex Assigned at Date Recorded Not on file documented as of this encounter Miscellaneous Notes Dialysis Note - Ernie Pompa MD - 03/24/2021 9:04 AM CST Date: Mar 24, 2021 Patient Name: Shaun Ocampo : 1945 Chart #: [id number] Sex: M This patient was personally seen for a complete visit as part of routine monthly dialysis care. A review of the dialysis treatment, blood pressure, estimated dry weight and recent lab values was made. These were discussed with the patient and staff as necessary. Treatment Data for 03/24/2021 started at:8:01 AM Dialyzer: 180NRe Optiflux Na: 138 mEq/L Bicarb: 30 mEq/L Dialysate: 2.0 K, 2.25 Ca, 1.0 Mg, 100 Dextrose (G2231) Dialysate/Machine Temp (prescribed): 37 C Dialysate/Machine Temp (actual): 36.7 C BFR (prescribed): 400 BFR (actual): 400 Prescribed time: 04:00 EDW: 109 kg Access Type: Active (In Use):AVFistula-Standard/Left Upper Arm Pre Dialysis Vitals (for 03/24/2021 7:51 AM ) Pre BP (sit): 143/66 Pre Wt: 114.8 kg Temp: 95.6 F Post Dialysis Vitals (for 03/22/2021 11:57 AM ) Post BP (sit): 112/55 Post Wt: 110.5 kg Current Dialysis Vitals (for 03/24/2021 8:02 AM ) BP (sit): 114/54 AP(-) / GAS PIT WORKER: 170/152 Pulse: 69 Chairside data as of 03/24/2021 8:02 AM Last 3 Treatments 03/22/2021 03/19/2021 03/17/2021 EDW (kg) 109 109 109 Weight Pre (kg) 114.8 113.8 114.3 Weight Post (kg) 110.5 109.2 110.4 Dialytic Weight Loss (kg) -4.3 -4.6 -3.9 EDW Deviation (kg) 1.5 0.2 1.4 BP Sit Pre 124/65 140/70 137/56 BP Sit Post 112/55 122/46 120/55 UF Rate (mL/kg/hr) 10 11 9 Prescribed BFR 400 400 400 Average Delivered BFR 410 410 410 Prescribed Treatment Time 04:00 04:00 04:00 Actual Treatment Time 04:01 04:00 04:01 Last 3 Values 02/05/2021 01/01/2021 11/20/2020 Access Flow 1384 > 2000 1432 Treatment Medication Orders Medication Sig Start Date End Date Heparin Sodium (Porcine) 1,000 Units/mL Systemic 1000 units IVP Every Treatment 03/27/2020 03/26/2021 Heparin Sodium (Porcine) 1,000 Units/mL Systemic 2000 units IVP Every Treatment 03/27/2020 03/26/2021 Iron Sucrose (Venofer) 50 mg IVP 1X Week 02/15/2021 02/14/2022 Vitamin D (Calcitriol) Oral 0.25 mcg ORAL Every Treatment 03/08/2021 03/07/2022 TOY ASSEMBLER WOOD: Ernie Pompa MD LOCATION: [phone] SCHEDULE: M-W-F 2nd Shift EDW: kg. DIALYZER: HD DURATION: NEEDLE SIZE: ANTICOAG: BATH: QB: ml/min QD: ml/min Subjective Tolerating dialysis well. 03/24/21: Shaun feels well. He had extra [...] extra run and we discussed going to [facility] tomorrow for UF only run and he [...] again today, may need extra run at [place] [place] if can't get down over next week. [...] SOB. Feels well otherwise. Foot wound healed. 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 06/10: Doing well overall, no new complaints, [...] Went to Urgent care -> ER in [place] yesterday,CT with R hydro but no obstructive [...] He had infiltration last week, dialyzed at [facility] on Sat and went well, access [...] intact with needles in place, no aneurysms Medication List Medication Sig Start Date albuterol [...] Medications reviewed and no changes were made. Treatment and Adequacy Assessment BUN mg/dL 46 (02/17/21) 51 (01/20/21) 44 (12/23/20) 51 (11/18/20) 45 (10/21/20) UREA NITROGEN (MG/DL) IN SER/PLAS - POST DIALYSIS mg/dL 13 (02/17/21) 11 (01/20/21) 11 (12/23/20) 11 (11/18/20) 11 (10/21/20) URR % 72 (02/17/21) 78 (01/20/21) 75 (12/23/20) 78 (11/18/20) 76 (10/21/20) spKt/V Gotch 1.56 (02/17/21) 1.88 (01/20/21) 1.72 (12/23/20) 1.96 (11/18/20) 1.77 (10/21/20) eKdrt/V 1.36 (02/17/21) 1.62 (01/20/21) 1.49 (12/23/20) 1.69 (11/18/20) 1.54 (10/21/20) spKt/V (Daugirdas II) 1.4900 (02/17/21) 1.8000 (01/20/21) 1.6600 (12/23/20) 1.8400 (11/18/20) 1.6800 (10/21/20) Dialysis is adequate. Achieves prescribed time - Yes Achieves prescribed frequency - Yes Continue current prescription. Vascular Access Assessment Type of access: [email or web address] Surgeon Annita GARDNER Access working well Anemia Assessment HEMOGLOBIN (G/DL) IN BLOOD g/dL 11.4 (03/17/21) 10.8 (03/10/21) 10.2 (03/03/21) 10.2 (02/24/21) 10.4 (02/17/21) PLATELETS 1000/mcL 190 (02/17/21) 186 (01/20/21) 168 (12/23/20) 145 (11/18/20) 180 (10/21/20) IRON SATURATION % 20 (02/17/21) 24 (01/20/21) 25 (12/23/20) 28 (11/18/20) 21 (10/21/20) FERRITIN ng/mL 837 (02/24/21) 925 (01/27/21) 837 (12/23/20) 1317 (09/23/20) 951 (06/24/20) Hemoglobin is at goal. Iron Saturation is below goal. Ferritin is at goal. Will adjust NATALEE and intravenous iron per protocol. Nutritional and Metabolic Assessment ALBUMIN (G/DL) g/dL 3.7 (02/17/21) 3.8 (01/20/21) 3.5 (12/23/20) 3.6 (11/18/20) 3.9 (10/21/20) Sodium mEq/L 136 (02/17/21) 136 (01/20/21) 136 (12/23/20) 137 (11/18/20) 135 (10/21/20) POTASSIUM (MMOL/L) IN SER/PLAS mEq/L 4.8 (02/17/21) 5.5 (01/20/21) 4.6 (12/23/20) 5.3 (11/18/20) 5.8 (10/21/20) BICARBONATE (CO2) mEq/L 26 (02/17/21) 22 (01/20/21) 21 (12/23/20) 24 (11/18/20) 23 (10/21/20) 25 OH VITAMIN D ng/mL 37.9 (09/23/20) 37.9 (03/25/20) Albumin is below goal. Encourage high-biological value protein intake. Potassium is at goal. Bicarbonate is at goal. Continue same bicarbonate in dialysate. Bone and Mineral Metabolism Assessment Calcium mg/dL 10.7 (03/03/21) 10.4 (02/17/21) 9.9 (01/20/21) 9.4 (12/23/20) 9.0 (11/18/20) CALCIUM (MG/DL) CORRECTED FOR ALBUMIN IN SER/PLAS mg/dL 10.6 (02/17/21) 10.1 (01/20/21) 9.8 (12/23/20) 9.3 (11/18/20) 9.4 (10/21/20) PHOSPHATE (MG/DL) IN SER/PLAS mg/dL 5.6 (02/17/21) 5.4 (01/20/21) 4.0 (12/23/20) 5.9 (11/18/20) 5.8 (10/21/20) CALCIUM PHOSPHORUS PRODUCT, COR 59 (02/17/21) 55 (01/20/21) 39 (12/23/20) 55 (11/18/20) 55 (10/21/20) IPTH pg/mL 546 (02/17/21) 637 (01/20/21) 493 (12/23/20) 969 (11/18/20) 785 (10/21/20) Corrected Calcium is above goal. Phosphorous is above goal. Intact PTH is at goal. Drapery Examiner will adjust binders and vitamin D per protocol and continue to provide dietary education. HE has severe nausea and vomiting with Sensipar, can not use anymore IV caclcimimetic would be an option First we will try reducing calcitriol, working on tight phos control. I will discuss increasing binder with RD. RE-check today. Cardiovascular Assessment Blood pressures reviewed and are acceptable. Intradialytic weight gains are too high. Estimated dry weight is appropriate. Discussed fluid restriction multiple times, IDWG's remain high. Will need occasional extra run to maintain dry weight. Transplant Status: Patient is not a candidate. Weight, co-morbidities, age Resuscitation Status Stable dialysis, no changes to prescription Labs today, may need to consider changes again if hypercalcemia remains despite drastic reduction incalcitriol Extra HD run prn for high fluid gains Ernie Pompa MD [ Signed And locked electronically On 03/24/2021 at 09:07:31 AM ] Transcribed: Ernie Pompa ( 03/24/2021 ) documented in this encounter Plan of Treatment Not on filedocumented as of this encounter Visit Diagnoses Not on filedocumented in this encounter
--- OUTSIDE RECORDS SUMMARY | 2021-10-27 05:42 | XMS_ITS | Encounter Summary ---
:1945 Author Organization [facility] Address [address] [place] [address] Care Team Providers Name Role Phone Unavailable Primary Care Provider Unavailable Encounter Details Date Type Department Care Team Description 07/21/2021 Treatment [facility] Ernie Guzmán MD [address] [place] [address] [place], [place] [phone] (Wo rk) Social History Tobacco Use Types Packs/Day Years Used Date Smoking Tobacco: Unknown Comments: Smoking History Info:Patient n ot screened Sex Assigned at Date Recorded Not on file documented as of this encounter Miscellaneous Notes Dialysis Note - Ernie Pompa MD - 07/21/2021 9:02 AM CDT Date: July 21, 2021 Patient Name: Shaun Ocampo : 1945 Chart #: [id number] Sex: M This patient was personally seen for a complete visit as part of routine monthly dialysis care. A review of the dialysis treatment, blood pressure, estimated dry weight and recent lab values was made. These were discussed with the patient and staff as necessary. Treatment Data for 07/21/2021 started at:7:06 AM Dialyzer: 180NRe Optiflux Na: 138 mEq/L Bicarb: 34 mEq/L Dialysate: 2.0 K, 2.25 Ca, 1.0 Mg, 100 Dextrose (G2231) Dialysate/Machine Temp (prescribed): 37 C Dialysate/Machine Temp (actual): 36 C BFR (prescribed): 400 BFR (actual): 400 Prescribed time: 04:00 EDW: 109 kg Access Type: Active (In Use):AVFistula-Standard/Left Upper Arm Pre Dialysis Vitals (for 07/21/2021 6:52 AM ) Pre BP (sit): 115/53 Pre Wt: 119.2 kg Temp: 97.3 F Post Dialysis Vitals (for 07/19/2021 10:58 AM ) Post BP (sit): 111/57 Post Wt: 114.9 kg Current Dialysis Vitals (for 07/21/2021 8:03 AM ) BP (sit): 112/56 AP(-) / ENVIRONMENTAL PROFESSIONAL: 158/144 Pulse: 77 Chairside data as of 07/21/2021 8:03 AM Last 3 Treatments 07/19/2021 07/16/2021 07/14/2021 EDW (kg) 109 109 109 Weight Pre (kg) 119.7 117.1 117.2 Weight Post (kg) 114.9 112.8 112.7 Dialytic Weight Loss (kg) -4.8 -4.3 -4.5 EDW Deviation (kg) 5.9 3.8 3.7 BP Sit Pre 115/61 116/48 102/43 BP Sit Post 111/57 108/58 107/34 UF Rate (mL/kg/hr) 11 10 9 Prescribed BFR 400 400 400 Average Delivered BFR 410 410 410 Prescribed Treatment Time 04:00 04:00 04:00 Actual Treatment Time 04:00 04:03 04:29 Last 3 Values 05/28/2021 04/23/2021 04/02/2021 Access [...] mg IVP Every Treatment 07/02/2021 07/23/2021 Mircera 50 mcg IVP Every 2 weeks 07/21/2021 07/20/2022 DIGITAL CONTENT COORDINATOR: Ernie Pompa MD LOCATION: [place] [phone] SCHEDULE: -W- 2nd Shift EDW: kg. DIALYZER: HD DURATION: NEEDLE SIZE: ANTICOAG: BATH: QB: ml/min QD: ml/min Subjective Tolerating dialysis well. 07/21/21: Continues to struggle with fluid gains, extra UF run scheduled tomorrow at [place]. He does feel more SOB when fluid overloaded. No new symptoms otherwise, he is enjoying the nicer weather which allows him to do more activity and not sit at home and drink fluids which he thinks will help with IDWG's. 07/14/21: Continues to have high gains, unfortunately [place] without staff to open tomorrow for extra [...] had steroid injections in knees yesterday at [facility]. To do PT as well. He pulled muscle in his lower arm on L side last week getting into car, hurt a lot but is improving. Fluid gains continue to be high, [place] not open on this week, says he will do his best withlimiting salt/fluid. HE does feel SOB with exertion with extra fluid on, no orthopnea. 05/26/21: Has SOB when >5 Kg over dry weight, extra run last week at [place] helped. Trying his best with fluid restriction. [...] extra run and we discussed going to [place] tomorrow for UF only run and he [...] again today, may need extra run at [place] if can't get down over next week. 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 06/10: Doing well overall, no new complaints, [...] Went to Urgent care -> ER in [place] yesterday,CT with R hydro but no obstructive [...] He had infiltration last week, dialyzed at [facility] on Sat and went well, access ok [...] murmur heard. Edema - 1+ leg edema. unchanged Access [...] made. Treatment and Adequacy Assessment BUN mg/dL 66 (06/23/21) 43 (05/21/21) 48 [...] (05/21/21) 1.3800 (05/19/21) 1.5300 (04/21/21) 1.6300 (03/24/21) Dialysis is adequate. Achieves prescribed time - Yes Achieves prescribed frequency - Yes Continue current prescription. Vascular Access Assessment Type of access: [id number] Surgeon - Lary GARDNER Access working well Anemia Assessment HEMOGLOBIN (G/DL) IN BLOOD g/dL 9.8 (07/14/21) 9.2 (07/07/21) 9.1 (06/30/21) 9.6 (06/23/21) 10.9 (06/16/21) PLATELETS 1000/mcL 149 (05/19/21) 155 (04/21/21) 135 (03/24/21) 190 (02/17/21) 186 (01/20/21) IRON SATURATION % 31 (06/23/21) 38 (05/26/21) 35 (05/19/21) 27 (04/21/21) 28 (03/24/21) FERRITIN ng/mL 640 (06/23/21) 640 (05/21/21) 857 (03/24/21) 837 (02/24/21) 925 (01/27/21) Hemoglobin is at goal. Iron Saturation is at goal. Ferritin is at goal. Will adjust NATALEE and intravenous iron per protocol. Nutritional and Metabolic Assessment ALBUMIN (G/DL) g/dL 3.7 (06/23/21) 3.7 (05/19/21) 4.0 (04/21/21) 3.9 (03/24/21) 3.7 (02/17/21) Sodium mEq/L 137 (06/23/21) 136 (05/19/21) 136 (04/21/21) 135 (03/24/21) 136 (02/17/21) POTASSIUM (MMOL/L) IN SER/PLAS mEq/L 4.9 (06/23/21) 5.0 (05/19/21) 5.4 (04/21/21) 5.7 (03/24/21) 4.8 (02/17/21) BICARBONATE (CO2) mEq/L 22 (06/23/21) 20 (05/19/21) 20 (04/21/21) 23 (03/24/21) 26 (02/17/21) 25 OH VITAMIN D ng/mL 38.3 (03/24/21) 37.9 (09/23/20) Albumin is below goal. Encourage high-biological value protein intake. Potassium is at goal. Bicarbonate is at goal. Continue same bicarbonate in dialysate. Bone and Mineral Metabolism Assessment Calcium mg/dL 8.8 (07/07/21) 9.0 (06/23/21) 9.7 (05/26/21) 9.1 (05/19/21) 9.6 (05/17/21) CALCIUM (MG/DL) CORRECTED FOR ALBUMIN IN SER/PLAS mg/dL 9.2 (06/23/21) 9.3 (05/19/21) 9.6 (04/21/21) 10.7 (03/24/21) 10.6 (02/17/21) PHOSPHATE (MG/DL) IN SER/PLAS mg/dL 4.4 (06/23/21) 4.7 (05/19/21) 4.7 (04/21/21) 5.5 (03/24/21) 5.6 (02/17/21) CALCIUM PHOSPHORUS PRODUCT, COR 40 (06/23/21) 44 (05/19/21) 45 (04/21/21) 59 (03/24/21) 59 (02/17/21) IPTH pg/mL 1142 (07/07/21) 1243 (06/23/21) 1356 (05/26/21) 1115 (05/17/21) 1457 (05/05/21) Corrected Calcium is at goal. Phosphorous is at goal. Intact PTH is above goal. Supervisor Extruding Department will adjust binders and vitamin D per protocol and continue to provide dietary education. HE has severe nausea and vomiting with Sensipar, can not use anymore He will benefit from Parsabiv with dose titration to achieve PTH <600, also titration of Vit D analog for high PTH now that Ca is lower. Repeat PTH today planned, it is trending down slowly Cardiovascular Assessment Blood pressures reviewed and are acceptable. Intradialytic weight gains are too high. Estimated dry weight is appropriate. Discussed fluid restriction multiple times, IDWG's remain high but a little better. Needs occasional extra UF run to maintain euvolemia, extra UF run planned 07/22/21 at [place] Transplant Status: Patient is not a candidate. Weight, co-morbidities, age Resuscitation Status Stable dialysis, no changes to prescription Extra UF run tomorrow at [place] Continue work on lower IDWG's Monthly labs being drawn today Ernie Pompa MD [ Signed And locked electronically On 07/21/2021 at 09:05:19 AM ] Transcribed: Ernie Pompa ( 07/21/2021 ) documented in this encounter Plan of Treatment Not on filedocumented as of this encounter Visit Diagnoses Not on filedocumented in this encounter
--- OUTSIDE RECORDS SUMMARY | 2021-10-27 05:42 | XMS_ITS | Encounter Summary ---
:1945 Author Organization [facility] Address [address] [place] [address] Care Team Providers Name Role Phone Unavailable Primary Care Provider Unavailable Encounter Details Date Type Department Care Team Description 06/09/2021 Treatment [facility] f Ernie Guzmán MD [address] [place] [address] [place], [place] [phone] (Wo rk) Social History Tobacco Use Types Packs/Day Years Used Date Smoking Tobacco: Unknown Comments: Smoking History Info:Patient n ot screened Sex Assigned at Date Recorded Not on file documented as of this encounter Miscellaneous Notes Dialysis Note - Ernie Pompa MD - 06/09/2021 10:34 AM CDT Date: Jun 09, 2021 Patient Name: Shaun Ocampo : 1945 Chart #: [id number] Sex: M This patient was personally seen for a basic visit as part of routine weekly dialysis care. A reviewof the dialysis treatment, blood pressure, estimated dry weight and recent lab values was made. These were discussed with the patient and staff as necessary. Treatment Data for 06/09/2021 started at:7:54 AM Dialyzer: 180NRe Optiflux Na: 138 mEq/L Bicarb: 34 mEq/L Dialysate: 2.0 K, 2.25 Ca, 1.0 Mg, 100 Dextrose (G2231) Dialysate/Machine Temp (prescribed): 37 C Dialysate/Machine Temp (actual): 36.6 C BFR (prescribed): 400 BFR (actual): 400 Prescribed time: 04:00 EDW: 109 kg Access Type: Active (In Use):AVFistula-Standard/Left Upper Arm Pre Dialysis Vitals (for 06/09/2021 7:53 AM ) Pre BP (sit): 128/67 Pre Wt: 117.1 kg Temp: 97.3 F Post Dialysis Vitals (for 06/07/2021 12:10 PM ) Post BP (sit): 104/45 Post Wt: 112.7 kg Current Dialysis Vitals (for 06/09/2021 10:31 AM ) BP (sit): 115/55 AP(-) / ELECTRICAL MAINTENANCE MECHANIC: 161/150 Pulse: 67 Chairside data as of 06/09/2021 10:31 AM Last 3 Treatments 06/07/2021 06/04/2021 06/02/2021 EDW (kg) 109 109 109 Weight Pre (kg) 116.8 114.2 114.7 Weight Post (kg) 112.7 110.9 111 Dialytic Weight Loss (kg) -4.1 -3.3 -3.7 EDW Deviation (kg) 3.7 1.9 2 BP Sit Pre 110/51 132/58 121/58 BP Sit Post 104/45 109/43 104/40 UF Rate (mL/kg/hr) 9 8 8 Prescribed BFR 400 400 400 Average Delivered BFR 410 410 410 Prescribed Treatment Time 04:00 04:00 04:00 Actual Treatment Time 04:03 04:01 04:00 Last 3 Values 05/28/2021 04/23/2021 04/02/2021 Access Flow 1102 1249 1499 Treatment Medication Orders Medication Sig Start Date End Date Doxercalciferol (Hectorol) 1 mcg IVP Every Treatment 05/14/2021 05/13/2022 Etelcalcetide (Parsabiv) 7.5 mg IVP 3X Week Post Dialysis 05/31/2021 05/30/2022 Heparin Sodium (Porcine) 1,000 Units/mL Systemic 2000 units IVP Every Treatment 03/29/2021 03/28/2022 Heparin Sodium (Porcine) 1,000 Units/mL Systemic 1000 units IVP Every Treatment 03/29/2021 03/28/2022 Iron Sucrose (Venofer) 50 mg IVP 1X Week 04/12/2021 04/11/2022 Mircera 50 mcg IVP Every 2 weeks 06/09/2021 06/08/2022 BIT TAPPER: Ernie Pompa MD LOCATION: [phone] SCHEDULE: -- 2nd Shift ACCESS: EDW: kg. DIALYZER: HD DURATION: NEEDLE SIZE: ANTICOAG: BATH: QB: ml/min QD: ml/min Subjective Tolerating dialysis well. 06/09/21: Feels better today, had steroid injections in knees yesterday at [facility]. To do PT as well. He pulled muscle in his lower arm on L side last week getting into car, hurt a lot but is improving. Fluid gains continue to be high, [place] not open on this week, says he will do his best withlimiting salt/fluid. HE does feel SOB with exertion with extra fluid on, no orthopnea. 05/26/21: Has SOB when >5 Kg over dry weight, extra run last week at [place] helped. Trying his best with fluid restriction. [...] extra run and we discussed going to [place] tomorrow for UF only run and he [...] again today, may need extra run at [place] if can't get down over next week. 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 06/10: Doing well overall, no new complaints, [...] Went to Urgent care -> ER in [place] yesterday,CT with R hydro but no obstructive [...] He had infiltration last week, dialyzed at [facility] on Sat and went well, access [...] and no changes were made. BUN mg/dL 43 (05/21/21) 48 (05/19/21) 61 (04/21/21) 63 (03/24/21) 46 (02/17/21) UREA NITROGEN (MG/DL) IN SER/PLAS - POST DIALYSIS mg/dL 12 (05/21/21) 15 (05/19/21) 17 (04/21/21) 16 (03/24/21) 13 (02/17/21) URR % 72 (05/21/21) 69 (05/19/21) 72 (04/21/21) 75 (03/24/21) 72 (02/17/21) spKt/V Gotch 1.62 (05/21/21) 1.45 (05/19/21) 1.6 (04/21/21) 1.73 (03/24/21) 1.56 (02/17/21) eKdrt/V 1.41 (05/21/21) 1.26 (05/19/21) 1.39 (04/21/21) 1.5 (03/24/21) 1.36 (02/17/21) spKt/V (Daugirdas II) 1.5200 (05/21/21) 1.3800 (05/19/21) 1.5300 (04/21/21) 1.6300 (03/24/21) 1.4900 (02/17/21) HEMOGLOBIN (G/DL) IN BLOOD g/dL 10.9 (06/02/21) 10.6 (05/26/21) 11.0 (05/19/21) 10.4 (05/12/21) 10.3 (05/05/21) PLATELETS 1000/mcL 149 (05/19/21) 155 (04/21/21) 135 (03/24/21) 190 (02/17/21) 186 (01/20/21) IRON SATURATION % 38 (05/26/21) 35 (05/19/21) 27 (04/21/21) 28 (03/24/21) 20 (02/17/21) FERRITIN ng/mL 640 (05/21/21) 857 (03/24/21) 837 (02/24/21) 925 (01/27/21) 837 (12/23/20) ALBUMIN (G/DL) g/dL 3.7 (05/19/21) 4.0 (04/21/21) 3.9 (03/24/21) Sodium mEq/L 136 (05/19/21) 136 (04/21/21) 135 (03/24/21) POTASSIUM (MMOL/L) IN SER/PLAS mEq/L 5.0 (3/2/22) 5.4 (04/21/21) 5.7 (03/24/21) BICARBONATE (CO2) mEq/L 20 (05/19/21) 20 (04/21/21) 23 (03/24/21) 25 OH VITAMIN D ng/mL 38.3 (03/24/21) 37.9 (09/23/20) 37.9 (03/25/20) BUN/CREATININE (MASS RATIO) IN SER/PLAS 7.8 (05/19/21) 8.8 (04/21/21) 8.4 (03/24/21) Calcium mg/dL 9.7 (05/26/21) 9.1 (05/19/21) 9.6 (05/17/21) Calcium Phos Product 43 (05/19/21) 45 (04/21/21) 58 (03/24/21) CALCIUM (MG/DL) CORRECTED FOR ALBUMIN IN SER/PLAS mg/dL 9.3 (05/19/21) 9.6 (04/21/21) 10.7 (03/24/21) PHOSPHATE (MG/DL) IN SER/PLAS mg/dL 4.7 (05/19/21) 4.7 (04/21/21) 5.5 (03/24/21) IPTH pg/mL 1356 (05/26/21) 1115 (05/17/21) 1457 (05/05/21) Vascular Access Assessment: Type of access: [id number] Surgeon - Lary GARDNER Access working well Impression and Plan Stable dialysis overall, no changes to prescription made Parsabiv titrated with PTH >1000 Fluid gains discussed again as well as salt restriction in diet Ernie Pompa MD [ Signed And locked electronically On 06/09/2021 at 10:36:09 AM ] Transcribed: Ernie Pompa ( 06/09/2021 ) documented in this encounter Plan of Treatment Not on filedocumented as of this encounter Visit Diagnoses Not on filedocumented in this encounter
--- OUTSIDE RECORDS SUMMARY | 2021-10-27 05:42 | XMS_ITS | Encounter Summary ---
:1945 Author Organization [facility] Address [address] [place] [address] Care Team Providers Name Role Phone Unavailable Primary Care Provider Unavailable Encounter Details Date Type Department Care Team Description 05/12/2021 Orders Only [facility] f Ernie Guzmán MD [address] [place] [address] [place], [place] [phone] (Wo rk) Social History Tobacco Use Types Packs/Day Years Used Date Smoking Tobacco: Unknown Comments: Smoking History Info:Patient n ot screened Sex Assigned at Date Recorded Not on file documented as of this encounter Plan of Treatment Not on filedocumented as of this encounter Procedures Procedure Name Priority Date/Time Associated Diagnosis Comme nts HEMATOLOGY Routine 05/12/2021 Results for thi s procedure are in the resu lts section. documented in this encounter Results (ABNORMAL) HEMATOLOGY (05/12/2021) Analysis Performed At Patho logist Time Signature Hemoglobin 10.4 (L) 14.0 - [facility] 18.0 g/dL [facility] Hemoglobin x 3 31.2 (L) 42.0 - [facility] 54.0 % [facility] Specimen (Source) Anatomical Collection Method Collection Time Re ceived Time Location / / Volume Laterality 05/12/2021 05/13/2021 1:22 PM HAND LOOM WEAVER Narrative [facility] - 05/13/2021 Unless otherwise specified, test(s) performed at: [email or web address], [address] [place] [id number] CLINICAL ASSOCIATE: Alec Payan M.D. For any questions, please call customer service at FREQUENCY:OTHER Resulting Agency Comment Specimen source: Blood Ernie Pompa MD LAB BLOOD ORDERABLES Performing Organization Address City/State/ZIP Code Phon e Number [facility] documented in this encounter Visit Diagnoses Not on filedocumented in this encounter
--- OUTSIDE RECORDS SUMMARY | 2021-10-27 05:42 | XMS_ITS | Encounter Summary ---
:1945 Author Organization [facility] Address [address] [place] [address] Care Team Providers Name Role Phone Unavailable Primary Care Provider Unavailable Encounter Details Date Type Department Care Team Description 03/24/2021 [facility] Only [facility] O f Ernie Guzmán MD [phone] [place] [address] [place], [place] [phone] [id number] (Wo rk) Social History Tobacco Use Types Packs/Day Years Used Date Smoking Tobacco: Unknown Comments: Smoking History Info:Patient n ot screened Sex Assigned at Date Recorded Not on file documented as of this encounter Plan of Treatment Not on filedocumented as of this encounter Procedures Procedure Name Priority Date/Time Associated Diagnosis Comme nts HD KINETICS Routine 03/24/2021 Results for thi s procedure are i n the results section . SPECIAL CHEMISTRY Routine 03/24/2021 Results fo r this procedure are i n the results section . POST CHEMISTRY Routine 03/24/2021 Results for t his procedure are i n the results section . IMMUNO CHEMISTRY Routine 03/24/2021 Results for this procedure are i n the results section . TRACE ELEMENTS Routine 03/24/2021 Results for t his procedure are i n the results section . HEMATOLOGY Routine 03/24/2021 Results for thi s procedure are i n the results section . CHEMISTRY Routine 03/24/2021 Results for thi s procedure are i n the results section . CHEMISTRY Routine 03/24/2021 Results for thi s procedure are i n the results section . SPECTRA [facility] LAB RESULTS Routine 03/24/2021 Resul ts for this procedure are i n the results section . documented in this encounter Results TRACE ELEMENTS (03/24/2021) athologist Signature Aluminum <5 0 - 10 APS SPECTRA mcg/L [facility] Comment: This test was developed and its performa nce characteristics determined by [facility]. It has not been cleared or approved by the FDA. The laboratory is regulated under CLIA a s qualified to perform high complexity testing. This test is used fo r clinical purposes. It should not be regarded as investigational or fo r research. Specimen (Source) Anatomical Collection Method Collection Time Re ceived Time Location / / Volume Laterality 03/24/2021 03/26/2021 11:3 3 AM [employer] Narrative APS SPECTRA [facility] - 03/29/2021 Unless otherwise specified, test(s) performed at: [facility], [address] [place] [address] HITTING COACH: Alec Payan M.D. For any questions, please call customer service at FREQUENCY:MONTHLY Resulting Agency Comment Specimen source: Serum Ernie Pompa MD LAB BLOOD ORDERABLES Performing Organization Address City/State/ZIP Code Phon e Number APS SPECTRA [facility] IMMUNO CHEMISTRY (03/24/2021) P athologist Signature Hep B Surface Negative Negative APS SPECTRA Ag [facility] Hepatitis B 993 mIU/mL APS SPECTRA Surface Ab [facility] Comment: The anti-HBs (Hepatitis B surface antibo dy) is greater than or equal to 10 mIU/mL and implies immunity. The fatou ent has either had an antibody response to HBV vaccination, received a transfusion, or has recovered from HBV infection. For post-vaccination antibody testing guidelines for the general public, refer to MMWR Dece 2004/Vol.54 (No. 16); 1-23, and for healthcare workers, refer to MMWR March 08, 2013/Vol.62 (No. 10); 1-18. Reference Range: <10 mIU/mL ? Non-Immune >=10 mIU/mL ?Immune The magnitude of the measured result abo ve 10 mIU/mL is not indicative of the total amount of antibody present. Hep B Core Total Ab Negative Negative APS SPECTR A [facility] Comment: Hep B Core Ab, Total appears during the acute infection stage and remains reactive/positive throughout the recovery stage. The above test result was obtained using Siemens Markitaur XP chemiluminescent method. Results obtaine d with different assay methods or kits cannot be used interchangeably. Specimen (Source) Anatomical Collection Method Collection Time Re ceived Time Location / / Volume Laterality 03/24/2021 03/26/2021 12:2 9 PM [employer] Resulting Agency Comment Specimen source: Serum Ernie Pompa MD LAB BLOOD ORDERABLES Performing Organization Address [facility] Code Phon e Number APS SPECTRA [facility] Spectra [facility] Lab Results (03/24/2021) P athologist Signature eKt/V 1.43 [facility] ([place]) PCR 79.38 [facility] nPCR_HD 1.19 [facility] eNPCR 1.11 [facility] eKt/V Gotch 1.50 [facility] eKdrt/V 1.50 [facility] spKt/V 1.63 [facility] (Daugirdas II) spKt/V Gotch 1.73 [facility] Specimen (Source) Anatomical Location Collection Method / Collectio n Time Received Time / Laterality Volume 03/24/2021 03/24/2021 [facility] Ordering Provider LAB BLOOD ORDERABLES Performing Organization Address [facility] Phon e Number [facility] SPECIAL CHEMISTRY (03/24/2021) P athologist Signature Vitamin D, 38.3 30.0 - APS SPECTRA 25-OH, Total 100.0 [facility] ng/mL Comment: Vitamin D Status Classification: Deficiency ? <10.0 ng/mL Insufficiency ?10.0-30.0 ng/mL Sufficiency ?30.0-100.0 ng/mL Toxicity ? >100.0 ng/mL Specimen (Source) Anatomical Collection Method Collection Time Re ceived Time Location / / Volume Laterality 03/24/2021 03/26/2021 12:2 9 PM [employer] Narrative APS SPECTRA [facility] - 03/27/2021 Unless otherwise specified, test(s) performed at: [facility], [address] [place] [address] HITTING COACH: Alec Payan M.D. For any questions, please call customer service at FREQUENCY:MONTHLY Resulting Agency Comment Specimen source: Serum Ernie Pompa MD LAB BLOOD BANK TEST ORDERABL ES Performing Organization Address City/[facility] Phon e Number APS SPECTRA [facility] (ABNORMAL) Spectrae Chemistry (03/24/2021) P athologist Signature PTH 977 (H) 16 - 80 APS SPECTRA pg/mL [facility] Specimen (Source) Anatomical Collection Method Collection Time Re ceived Time Location / / Volume Laterality 03/24/2021 03/26/2021 11:4 0 AM [employer] Narrative APS SPECTRA [facility] - 03/26/2021 Unless otherwise specified, test(s) performed at: [facility], [address] [place] [address] HITTING COACH: Alec Payan M.D. For any questions, please call customer service at FREQUENCY:MONTHLY Resulting Agency Comment Specimen source: Plasma Ernie Pompa MD LAB BLOOD ORDERABLES Performing Organization Address [facility] Phon e Number APS SPECTRA [facility] HD KINETICS (03/24/2021) P athologist Signature % Urea 75 65 - 80 % APS SPECTRA Reduction [facility] Specimen (Source) Anatomical Collection Method Collection Time Re ceived Time Location / / Volume Laterality 03/24/2021 03/26/2021 2:17 PM [employer] Resulting Agency Comment Specimen source: Plasma Ernie Pompa MD LAB BLOOD ORDERABLES Performing Organization Address [facility] Code Phon e Number APS SPECTRA [facility] POST CHEMISTRY (03/24/2021) P athologist Signature BUN Post 16 6 - 19 APS SPECTRA Dialysis mg/dL [facility] Specimen (Source) Anatomical Collection Method Collection Time Re ceived Time Location / / Volume Laterality 03/24/2021 03/26/2021 2:15 PM [employer] Narrative APS SPECTRA [facility] - 03/26/2021 Unless otherwise specified, test(s) performed at: [facility], [address] [place] [address] HITTING COACH: Alec Payan M.D. For any questions, please call customer service at FREQUENCY:MONTHLY Resulting Agency Comment Specimen source: Plasma Ernie Pompa MD LAB BLOOD ORDERABLES Performing Organization Address [facility] Phon e Number APS SPECTRA [facility] (ABNORMAL) Spectrae Chemistry (03/24/2021) [facility] Method Time Signature BUN 63 (H) 6 - 19 APS SPECTRA mg/dL [facility] Creatinine 7.50 (H) 0.60 - APS SPECTRA 1.30 mg/dL [facility] BUN/Creatinine 8.4 (L) 10.0 - APS SPECTRA Ratio 20.0 [facility] Sodium 135 (L) 136 - 145 APS SPECTRA mEq/L [facility] Potassium 5.7 (H) 3.5 - 5.1 APS SPECTRA mEq/L [facility] Chloride 95 (L) 96 - 108 APS SPECTRA mEq/L [facility] Bicarbonate 23 22 - 29 APS SPECTRA (CO2) mEq/L [facility] Calcium 10.6 (H) 8.4 - 10.2 APS SPECTRA mg/dL [facility] Comment: Custom Exception Corrected Calcium 10.7 (H) 8.4 - 10.2 mg/dL APS S PECTRA [facility] Comment: Corrected Calcium is not equivalent to m easured Ionized Calcium. Phosphorus 5.5 (H) 2.6 - 4.5 mg/dL APS SPECTRA K [facility] Calcium Phosphorus Product 58 (H) 0 - 54 APS SPECTRA [facility] Calcium Phosporus Product, Cor 59 (H) 0 - 54 APS SPECTRA [facility] Alkaline Phosphatase 110 40 - 129 U/L APS SP ECTRA [facility] Total Protein 7.1 6.0 - 8.5 g/dL APS SPECTRA [facility] Albumin 3.9 3.5 - 5.2 g/dL APS SPECTRA [facility] [place] Globulin, Total 3.2 2.0 - 4.0 g/dL APS SPECT RA [facility] A/G Ratio 1.2 1.0 - 2.0 APS SPECTRA [facility] Magnesium 2.4 1.6 - 2.6 mg/dL APS SPECTRA [place] [facility] Iron 74 45 - 160 mcg/dL APS SPECTRA [place] [facility] UIBC 193 155 - 355 mcg/dL APS SPECTRA [facility] TIBC 267 185 - 515 mcg/dL APS SPECTRA K [facility] Iron Saturation (TSat) 28 20 - 55 % APS SPE CTRA [facility] Ferritin 857 (H) 22 - 322 ng/mL APS SPECTRA [facility] [place] Specimen (Source) Anatomical Collection Method Collection Time Re ceived Time Location / / Volume Laterality 03/24/2021 03/26/2021 12:2 9 PM [employer] Narrative APS SPECTRA [facility] - 03/28/2021 Unless otherwise specified, test(s) performed at: [facility], [address] [place] [address] HITTING COACH: Alec Payan M.D. For any questions, please call customer service at FREQUENCY:MONTHLY Resulting Agency Comment Specimen source: Serum Ernie Pompa MD LAB BLOOD ORDERABLES Performing Organization Address City/State/[facility] Code Phon e Number APS SPECTRA [facility] (ABNORMAL) HEMATOLOGY (03/24/2021) Analysis Performed At Patho logist Time Signature WBC 5.25 4.80 - APS SPECTRA 10.80 [facility] 1000/mcL RBC 3.27 (L) 4.70 - APS SPECTRA 6.10 [facility] mill/mcL Hemoglobin 11.3 (L) 14.0 - APS SPECTRA 18.0 g/dL [facility] Hemoglobin x 3 33.9 (L) 42.0 - APS SPECTRA 54.0 % [facility] Hematocrit 35.1 (L) 42.0 - APS SPECTRA 52.0 % [facility] MCV 107 (H) 80 - 100 APS SPECTRA fl [facility] MCH 34.4 (H) 27.0 - APS SPECTRA 31.0 pg [facility] MCHC 32.1 30.0 - APS SPECTRA 36.0 g/dL [facility] RDW 17.2 (H) 11.5 - APS SPECTRA 14.5 % [facility] Platelets 135 130 - 400 APS SPECTRA 1000/mcL [facility] Specimen (Source) Anatomical Collection Method Collection Time Re ceived Time Location / / Volume Laterality 03/24/2021 03/26/2021 11:5 3 AM [employer] Narrative APS SPECTRA [facility] - 03/26/2021 Unless otherwise specified, test(s) performed at: [facility], [address] [place] [address] HITTING COACH: Alec Payan M.D. For any questions, please call customer service at FREQUENCY:MONTHLY Resulting Agency Comment Specimen source: Blood Ernie Pompa MD LAB BLOOD ORDERABLES Performing Organization Address City/[facility]/ZIP [facility] Phon e Number APS SPECTRA [facility] documented in this encounter Visit Diagnoses Not on filedocumented in this encounter
--- OUTSIDE RECORDS SUMMARY | 2021-10-27 05:42 | XMS_ITS | Encounter Summary ---
:1945 Author Organization [facility] Address [address] [place] [address] Care Team Providers Name Role Phone Unavailable Primary Care Provider Unavailable Encounter Details Date Type Department Care Team Description 07/28/2021 Orders Only [facility] O f Ernie Guzmán MD [phone] [place] [address] [place], [place] [phone] (Wo rk) Social History Tobacco Use Types Packs/Day Years Used Date Smoking Tobacco: Unknown Comments: Smoking History Info:Patient n ot screened Sex Assigned at Date Recorded Not on file documented as of this encounter Plan of Treatment Not on filedocumented as of this encounter Procedures Procedure Name Priority Date/Time Associated Diagnosis Comme nts HEMATOLOGY Routine 07/28/2021 Results for thi s procedure are in the resu lts section. documented in this encounter Results (ABNORMAL) HEMATOLOGY (07/28/2021) [facility] gist Method Time Signature Hemoglobin 9.9 (L) 14.0 - APS SPECTRA 18.0 g/dL [facility] Hemoglobin x 3 29.7 (L) 42.0 - APS SPECTRA 54.0 % [facility] Reticulocyte 36.8 (H) 25.4 - APS SPECTRA Hemoglobin 31.8 pg [facility] Specimen (Source) Anatomical Collection Method Collection Time Re ceived Time Location / / Volume Laterality 07/28/2021 07/29/2021 11:4 9 AM CDT Narrative APS SPECTRA [facility] - 07/29/2021 Unless otherwise specified, test(s) performed at: [facility], [address] [place] [address] MEDIA CONSULTANT OUTSIDE SALES: Alec Payan M.D. For any questions, please call customer service at FREQUENCY:OTHER Resulting Agency Comment Specimen source: Blood Ernie Pompa MD LAB BLOOD ORDERABLES Performing Organization Address City/State/ZIP Code Phon e Number APS SPECTRA [facility] documented in this encounter Visit Diagnoses Not on filedocumented in this encounter
--- OUTSIDE RECORDS SUMMARY | 2021-10-27 05:42 | XMS_ITS | Encounter Summary ---
:1945 Author Organization [facility] Address [address] [place] [address] Care Team Providers Name Role Phone Unavailable Primary Care Provider Unavailable Encounter Details Date Type Department Care Team Description 04/14/2021 Orders Only [facility] O f Ernie Guzmán MD [phone] [place] [address] [place], [place] [phone] (Wo rk) Social History Tobacco Use Types Packs/Day Years Used Date Smoking Tobacco: Unknown Comments: Smoking History Info:Patient n ot screened Sex Assigned at Date Recorded Not on file documented as of this encounter Plan of Treatment Not on filedocumented as of this encounter Procedures Procedure Name Priority Date/Time Associated Diagnosis Comme nts HEMATOLOGY Routine 04/14/2021 Results for thi s procedure are in the resu lts section. documented in this encounter Results (ABNORMAL) HEMATOLOGY (04/14/2021) Analysis Performed At Patho logist Time Signature Hemoglobin 11.4 (L) 14.0 - APS SPECTRA 18.0 g/dL [facility] Hemoglobin x 3 34.2 (L) 42.0 - APS SPECTRA 54.0 % [facility] Specimen (Source) Anatomical Collection Method Collection Time Re ceived Time Location / / Volume Laterality 04/14/2021 04/15/2021 10:0 0 AM OFFICE SERVICES REPRESENTATIVE Narrative APS SPECTRA [facility] - 04/15/2021 Unless otherwise specified, test(s) performed at: [facility], [address] [place] [id number] FAMILY WORKER: Alec Payan M.D. For any questions, please call customer service at FREQUENCY:OTHER Resulting Agency Comment Specimen source: Blood Ernie Pompa MD LAB BLOOD ORDERABLES Performing Organization Address City/State/ZIP Code Phon e Number APS SPECTRA [facility] documented in this encounter Visit Diagnoses Not on filedocumented in this encounter
--- OUTSIDE RECORDS SUMMARY | 2021-10-27 05:42 | XMS_ITS | Encounter Summary ---
:1945 Author Organization [facility] Address [address] [place] [address] Care Team Providers Name Role Phone Unavailable Primary Care Provider Unavailable Encounter Details Date Type Department Care Team Description 06/02/2021 Orders Only [facility] O f Ernie Guzmán MD [phone] [place] [address] [place], [place] [phone] (Wo rk) Social History Tobacco Use Types Packs/Day Years Used Date Smoking Tobacco: Unknown Comments: Smoking History Info:Patient n ot screened Sex Assigned at Date Recorded Not on file documented as of this encounter Plan of Treatment Not on filedocumented as of this encounter Procedures Procedure Name Priority Date/Time Associated Diagnosis Comme nts HEMATOLOGY Routine 06/02/2021 Results for thi s procedure are in the resu lts section. documented in this encounter Results (ABNORMAL) HEMATOLOGY (06/02/2021) Analysis Performed At Patho logist Time Signature Hemoglobin 10.9 (L) 14.0 - APS SPECTRA 18.0 g/dL [facility] Hemoglobin x 3 32.7 (L) 42.0 - APS SPECTRA 54.0 % [facility] Specimen (Source) Anatomical Collection Method Collection Time Re ceived Time Location / / Volume Laterality 06/02/2021 06/03/2021 9:29 AM CDT Narrative APS SPECTRA [facility] - 06/03/2021 Unless otherwise specified, test(s) performed at: [facility], [address] [place] [id number] MEDICAL INTERN: Alec Payan M.D. For any questions, please call customer service at FREQUENCY:OTHER Resulting Agency Comment Specimen source: Blood Ernie Pompa MD LAB BLOOD ORDERABLES Performing Organization Address City/State/ZIP Code Phon e Number APS SPECTRA [facility] documented in this encounter Visit Diagnoses Not on filedocumented in this encounter
--- OUTSIDE RECORDS SUMMARY | 2021-10-27 05:42 | XMS_ITS | Encounter Summary ---
:1945 Author Organization [facility] Address [address] [place] [address] Care Team Providers Name Role Phone Unavailable Primary Care Provider Unavailable Encounter Details Date Type Department Care Team Description 07/21/2021 Orders Only [facility] O f Ernie Guzmán MD [phone] [place] [address] [place], [place] [phone] (Wo rk) Social History Tobacco Use Types Packs/Day Years Used Date Smoking Tobacco: Unknown Comments: Smoking History Info:Patient n ot screened Sex Assigned at Date Recorded Not on file documented as of this encounter Plan of Treatment Not on filedocumented as of this encounter Procedures Procedure Name Priority Date/Time Associated Diagnosis Comme nts HD KINETICS Routine 07/21/2021 Results for thi s procedure are i n the results section . POST CHEMISTRY Routine 07/21/2021 Results for t his procedure are i n the results section . IMMUNO CHEMISTRY Routine 07/21/2021 Results for this procedure are i n the results section . HEMATOLOGY Routine 07/21/2021 Results for thi s procedure are i n the results section . CHEMISTRY Routine 07/21/2021 Results for thi s procedure are i n the results section . SPECTRA [facility] LAB RESULTS Routine 07/21/2021 Resul ts for this procedure are i n the results section . documented in this encounter Results Spectra [facility] Lab Results (07/21/2021) P athologist Signature PCR 58.69 [facility] eKdrt/V 1.24 [facility] eKt/V Gotch 1.24 [facility] spKt/V 1.37 [facility] (Daugirdas II) spKt/V Gotch 1.42 [facility] nPCR_HD 0.82 [facility] eNPCR 0.75 [facility] eKt/V 1.19 [facility] ([place]) Specimen (Source) Anatomical Location Collection Method / Collectio n Time Received Time / Laterality Volume 07/21/2021 07/21/2021 [facility] Ordering Provider LAB BLOOD ORDERABLES Performing Organization Address City/State/ZIP Code Phon e Number [facility] HD KINETICS (07/21/2021) P athologist Signature % Urea 68 65 - 80 % APS SPECTRA Reduction [facility] Specimen (Source) Anatomical Collection Method Collection Time Re ceived Time Location / / Volume Laterality 07/21/2021 07/23/2021 4:30 PM CDT Narrative APS SPECTRA [facility] - 07/24/2021 Unless otherwise specified, test(s) performed at: [facility], [address] [place] [address] CUSTOMER ACCOUNT REPRESENTATIVE: Alec Payan M.D. For any questions, please call customer service at FREQUENCY:MONTHLY Resulting Agency Comment Specimen source: Plasma Ernie Pompa MD LAB BLOOD ORDERABLES Performing Organization Address City/State/ZIP Code Phon e Number APS SPECTRA [facility] (ABNORMAL) Spectrae Chemistry (07/21/2021) Patholo gist Method Time Signature BUN 44 (H) 6 - 19 APS SPECTRA mg/dL [facility] Creatinine 6.30 (H) 0.60 - APS SPECTRA 1.30 mg/dL [facility] BUN/Creatinine 7.0 (L) 10.0 - APS SPECTRA Ratio 20.0 [facility] Sodium 138 136 - 145 APS SPECTRA mEq/L [facility] Potassium 5.5 (H) 3.5 - 5.1 APS SPECTRA mEq/L [facility] Chloride 97 96 - 108 APS SPECTRA mEq/L [facility] Bicarbonate 25 22 - 29 APS SPECTRA (CO2) mEq/L [facility] Calcium 8.6 8.4 - 10.2 APS SPECTRA mg/dL [facility] Corrected 9.0 8.4 - 10.2 APS SPECTRA Calcium mg/dL [facility] Comment: Corrected Calcium is not equivalent to m easured Ionized Calcium. Phosphorus 4.4 2.6 - 4.5 mg/dL APS SPECTRA K [facility] Calcium Phosphorus Product 38 0 - 54 APS SPECTRA [facility] Calcium Phosporus Product, Cor 40 0 - 54 APS SPECTRA [facility] Total Protein 6.4 6.0 - 8.5 g/dL APS SPECTRA [facility] Albumin 3.5 3.5 - 5.2 g/dL APS SPECTRA [facility] [place] Globulin, Total 2.9 2.0 - 4.0 g/dL APS SPECT RA [facility] A/G Ratio 1.2 1.0 - 2.0 APS SPECTRA [facility] Iron 92 45 - 160 mcg/dL APS SPECTRA [place] [facility] UIBC 167 155 - 355 mcg/dL APS SPECTRA K [facility] TIBC 259 185 - 515 mcg/dL APS SPECTRA [facility] Iron Saturation (TSat) 36 20 - 55 % APS SPE CTRA [facility] Specimen (Source) Anatomical Collection Method Collection Time Re ceived Time Location / / Volume Laterality 07/21/2021 07/23/2021 12:4 6 PM CDT Narrative APS SPECTRA [facility] - 07/24/2021 Unless otherwise specified, test(s) performed at: [facility], [address] [place] [id number] CUSTOMER ACCOUNT REPRESENTATIVE: Alec Payan M.D. For any questions, please call customer service at FREQUENCY:MONTHLY Resulting Agency Comment Specimen source: Serum Ernie Pompa MD LAB BLOOD ORDERABLES Performing Organization Address City/[facility] Phon e Number APS SPECTRA [facility] POST CHEMISTRY (07/21/2021) P athologist Signature BUN Post 14 6 - 19 APS SPECTRA Dialysis mg/dL [facility] Specimen (Source) Anatomical Collection Method Collection Time Re ceived Time Location / / Volume Laterality 07/21/2021 07/23/2021 4:30 PM CDT Narrative APS SPECTRA [facility] - 07/24/2021 Unless otherwise specified, test(s) performed at: [facility], [address] [place] [id number] CUSTOMER ACCOUNT REPRESENTATIVE: Alec Payan M.D. For any questions, please call customer service at FREQUENCY:MONTHLY Resulting Agency Comment Specimen source: Plasma Ernie Pompa MD LAB BLOOD ORDERABLES Performing Organization Address City/[facility] Phon e Number APS SPECTRA [facility] IMMUNO CHEMISTRY (07/21/2021) P athologist Signature Hep B Surface Negative Negative APS SPECTRA Ag [facility] Specimen (Source) Anatomical Collection Method Collection Time Re ceived Time Location / / Volume Laterality 07/21/2021 07/23/2021 12:4 6 PM CDT Narrative APS SPECTRA [facility] - 07/23/2021 Unless otherwise specified, test(s) performed at: [facility], [address] [place] [id number] CUSTOMER ACCOUNT REPRESENTATIVE: Alec Payan M.D. For any questions, please call customer service at FREQUENCY:MONTHLY Resulting Agency Comment Specimen source: Serum Ernie Pompa MD LAB BLOOD ORDERABLES Performing Organization Address City/State/ZIP Code Phon e Number APS SPECTRA [facility] (ABNORMAL) HEMATOLOGY (07/21/2021) Analysis Performed At Patho logist Time Signature WBC 7.96 4.80 - APS SPECTRA 10.80 [facility] 1000/mcL RBC 2.74 (L) 4.70 - APS SPECTRA 6.10 [facility] mill/mcL Hemoglobin 9.6 (L) 14.0 - APS SPECTRA 18.0 g/dL [facility] Hemoglobin x 3 28.8 (L) 42.0 - APS SPECTRA 54.0 % [facility] Hematocrit 31.1 (L) 42.0 - APS SPECTRA 52.0 % [facility] MCV 114 (H) 80 - 100 APS SPECTRA fl [facility] MCH 35.1 (H) 27.0 - APS SPECTRA 31.0 pg [facility] MCHC 30.9 30.0 - APS SPECTRA 36.0 g/dL [facility] RDW 17.3 (H) 11.5 - APS SPECTRA 14.5 % [facility] Platelets 183 130 - 400 APS SPECTRA 1000/mcL [facility] Specimen (Source) Anatomical Collection Method Collection Time Re ceived Time Location / / Volume Laterality 07/21/2021 07/23/2021 12:4 6 PM CDT Narrative APS SPECTRA [facility] - 07/23/2021 Unless otherwise specified, test(s) performed at: [facility], [address] [place] [id number] CUSTOMER ACCOUNT REPRESENTATIVE: Alec Payan M.D. For any questions, please call customer service at FREQUENCY:MONTHLY Resulting Agency Comment Specimen source: Blood Ernie Pompa MD LAB BLOOD ORDERABLES Performing Organization Address City/State/ZIP Code Phon e Number APS SPECTRA [facility] documented in this encounter Visit Diagnoses Not on filedocumented in this encounter
--- OUTSIDE RECORDS SUMMARY | 2021-10-27 05:42 | XMS_ITS | Encounter Summary ---
:1945 Author Organization [facility] Address [address] [place] [address] Care Team Providers Name Role Phone Unavailable Primary Care Provider Unavailable Encounter Details Date Type Department Care Team Description 07/07/2021 Orders Only [facility] Ernie Guzmán MD [phone] [place] [address] [place], [place] [phone] (Wo rk) Social History Tobacco Use Types Packs/Day Years Used Date Smoking Tobacco: Unknown Comments: Smoking History Info:Patient n ot screened Sex Assigned at Date Recorded Not on file documented as of this encounter Plan of Treatment Not on filedocumented as of this encounter Procedures Procedure Name Priority Date/Time Associated Diagnosis Comme nts HEMATOLOGY Routine 07/07/2021 Results for thi s procedure are in the resu lts section. CHEMISTRY Routine 07/07/2021 Results for thi s procedure are in the resu lts section. CHEMISTRY Routine 07/07/2021 Results for thi s procedure are in the resu lts section. documented in this encounter Results Spectrae Chemistry (07/07/2021) P athologist Signature Calcium 8.8 8.4 - 10.2 APS SPECTRA mg/dL [facility] Specimen (Source) Anatomical Collection Method Collection Time Re ceived Time Location / / Volume Laterality 07/07/2021 07/10/2021 10:1 8 AM CDT Narrative APS SPECTRA [facility] - 07/10/2021 Unless otherwise specified, test(s) performed at: [facility], [address] [place] [id number] VAMP STRAP IRONER: Alec Payan M.D. For any questions, please call customer service at FREQUENCY:OTHER Resulting Agency Comment Specimen source: Serum Ernie Pompa MD LAB BLOOD ORDERABLES Performing Organization Address City/State/ZIP Code Phon e Number APS SPECTRA [facility] (ABNORMAL) Spectrae Chemistry (07/07/2021) P athologist Signature PTH 1,142 (H) 16 - 80 APS SPECTRA pg/mL [facility] Specimen (Source) Anatomical Collection Method Collection Time Re ceived Time Location / / Volume Laterality 07/07/2021 07/10/2021 10:0 4 AM CDT Narrative [facility]PS SPECTRA [facility] - 07/10/2021 Unless otherwise specified, test(s) performed at: [facility], [address] [place], [place] [id number] VAMP STRAP IRONER: Alec Payan M.D. For any questions, please call customer service at FREQUENCY:OTHER Resulting Agency Comment Specimen source: Plasma Ernie Pompa MD LAB BLOOD ORDERABLES Performing Organization Address [facility] Phon e Number APS SPECTRA [facility] (ABNORMAL) HEMATOLOGY (07/07/2021) Analysis Performed At Patho logist Time Signature Hemoglobin 9.2 (L) 14.0 - [facility] 18.0 g/dL [facility] Hemoglobin x 3 27.6 (L) 42.0 - APS [facility]RA 54.0 % [facility] Specimen (Source) Anatomical Collection Method Collection Time Re ceived Time Location / / Volume Laterality 07/07/2021 07/10/2021 10:1 0 AM CDT Narrative APS SPECTRA [facility] - 07/10/2021 Unless otherwise specified, test(s) performed at: [facility], [address] [place] [id number] VAMP STRAP IRONER: Alec Payan M.D. For any questions, please call customer service at FREQUENCY:OTHER Resulting Agency Comment Specimen source: Blood Ernie Pompa MD LAB BLOOD ORDERABLES Performing Organization Address City/[facility]/[place] [facility] [place] Number [facility] documented in this encounter Visit Diagnoses Not on filedocumented in this encounter
--- OUTSIDE RECORDS SUMMARY | 2021-10-27 05:42 | XMS_ITS | Encounter Summary ---
:1945 Author Organization [facility] Address [address] [place] [address] Care Team Providers Name Role Phone Unavailable Primary Care Provider Unavailable Encounter Details Date Type Department Care Team Description 03/10/2021 Orders Only [facility] O f Ernie Guzmán MD [phone] [place] [address] [place], [place] [phone] (Wo rk) Social History Tobacco Use Types Packs/Day Years Used Date Smoking Tobacco: Unknown Comments: Smoking History Info:Patient n ot screened Sex Assigned at Date Recorded Not on file documented as of this encounter Plan of Treatment Not on filedocumented as of this encounter Procedures Procedure Name Priority Date/Time Associated Diagnosis Comme nts HEMATOLOGY Routine 03/10/2021 Results for thi s procedure are in the resu lts section. documented in this encounter Results (ABNORMAL) HEMATOLOGY (03/10/2021) Analysis Performed At Patho logist Time Signature Hemoglobin 10.8 (L) 14.0 - APS SPECTRA 18.0 g/dL [facility] Hemoglobin x 3 32.4 (L) 42.0 - APS SPECTRA 54.0 % [facility] Specimen (Source) Anatomical Collection Method Collection Time Re ceived Time Location / / Volume Laterality 03/10/2021 03/11/2021 10:5 0 AM HEATING AND VENTILATING WORKER Narrative APS SPECTRA [facility] - 03/11/2021 Unless otherwise specified, test(s) performed at: [facility], [address] [place] [id number] FIELD RECORDER: Alec Payan M.D. For any questions, please call customer service at FREQUENCY:OTHER Resulting Agency Comment Specimen source: Blood Ernie Pompa MD LAB BLOOD ORDERABLES Performing Organization Address City/State/ZIP Code Phon e Number APS SPECTRA [facility] documented in this encounter Visit Diagnoses Not on filedocumented in this encounter
--- OUTSIDE RECORDS SUMMARY | 2021-10-27 05:42 | XMS_ITS | Encounter Summary ---
:1945 Author Organization [facility] Address [address] [place] [address] Care Team Providers Name Role Phone Unavailable Primary Care Provider Unavailable Encounter Details Date Type Department Care Team Description 04/21/2021 Treatment [facility] Ernie Guzmán MD [address] [place] [address] [place], [place] [phone] (Wo rk) Social History Tobacco Use Types Packs/Day Years Used Date Smoking Tobacco: Unknown Comments: Smoking History Info:Patient n ot screened Sex Assigned at Date Recorded Not on file documented as of this encounter Miscellaneous Notes Dialysis Note - Ernie Pompa MD - 04/21/2021 8:58 AM CST Date: Apr 21, 2021 Patient Name: Shaun Ocampo : 1945 Chart #: [id number] Sex: M This patient was personally seen for a complete visit as part of routine monthly dialysis care. A review of the dialysis treatment, blood pressure, estimated dry weight and recent lab values was made. These were discussed with the patient and staff as necessary. Treatment Data for 04/21/2021 started at:7:55 AM Dialyzer: 180NRe Optiflux Na: 138 mEq/L Bicarb: 30 mEq/L Dialysate: 2.0 K, 2.25 Ca, 1.0 Mg, 100 Dextrose (G2231) Dialysate/Machine Temp (prescribed): 37 C Dialysate/Machine Temp (actual): 37 C BFR (prescribed): 400 BFR (actual): 400 Prescribed time: 04:00 EDW: 109 kg Access Type: Active (In Use):AVFistula-Standard/Left Upper Arm Pre Dialysis Vitals (for 04/21/2021 7:42 AM ) Pre BP (sit): 115/59 Pre Wt: 114.3 kg Temp: 98.1 F Post Dialysis Vitals (for 04/19/2021 11:56 AM ) Post BP (sit): 114/48 Post Wt: 109.8 kg Current Dialysis Vitals (for 04/21/2021 8:33 AM ) BP (sit): 113/62 AP(-) / OPERATOR PREFINISH: 176/155 Pulse: 78 Chairside data as of 04/21/2021 8:33 AM Last 3 Treatments 04/19/2021 04/16/2021 04/14/2021 EDW (kg) 109 109 109 Weight Pre (kg) 114.2 112.9 112.4 Weight Post (kg) 109.8 108.9 108.9 Dialytic Weight Loss (kg) -4.4 -4 -3.5 EDW Deviation (kg) 0.8 -0.1 -0.1 BP Sit Pre 118/48 153/70 116/60 BP Sit Post 114/48 118/51 118/39 UF Rate (mL/kg/hr) 10 9 8 Prescribed BFR 400 400 400 Average Delivered BFR 410 410 410 Prescribed Treatment Time 04:00 04:00 04:00 Actual Treatment Time 04:00 04:00 03:59 Last 3 Values 04/02/2021 02/05/2021 01/01/2021 Access Flow 1499 1384 > 2000 Treatment Medication Orders Medication Sig Start Date End Date Etelcalcetide (Parsabiv) 2.5 mg IVP 3X Week Post Dialysis 04/07/2021 04/06/2022 Heparin Sodium (Porcine) 1,000 Units/mL Systemic 2000 units IVP Every Treatment 03/29/2021 03/28/2022 Heparin Sodium (Porcine) 1,000 Units/mL Systemic 1000 units IVP Every Treatment 03/29/2021 03/28/2022 Iron Sucrose (Venofer) 50 mg IVP 1X Week 04/12/2021 04/11/2022 LASER ENGRAVER: Ernie Pompa MD LOCATION: [phone] SCHEDULE: M-W-F 2nd Shift EDW: kg. DIALYZER: HD DURATION: NEEDLE SIZE: ANTICOAG: BATH: QB: ml/min QD: ml/min Subjective Tolerating dialysis well. 04/21/21: He went out to eat last [...] extra run and we discussed going to [place] tomorrow for UF only run and he [...] again today, may need extra run at [place] if can't get down over next week. 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 06/10: Doing well overall, no new complaints, [...] and came off early. Had gross hematuria Stephanie. Went to Urgent care -> ER in [...] He had infiltration last week, dialyzed at [facility] on Sat and went well, [...] foot ulcer E13.621 L97.501 Exam Respiratory - Crackles at bases. Cardiovascular - Regular rate. Regular rhythm. No murmur heard. Edema - 1+ leg edema. stable Access [...] made. Treatment and Adequacy Assessment BUN mg/dL 63 (03/24/21) 46 (02/17/21) 51 (01/20/21) 44 (12/23/20) 51 (11/18/20) UREA NITROGEN (MG/DL) IN SER/PLAS - POST DIALYSIS mg/dL 16 (03/24/21) 13 (02/17/21) 11 (01/20/21) 11 (12/23/20) 11 (11/18/20) URR % 75 (03/24/21) 72 (02/17/21) 78 (01/20/21) 75 (12/23/20) 78 (11/18/20) spKt/V Gotch 1.73 (03/24/21) 1.56 (02/17/21) 1.88 (01/20/21) 1.72 (12/23/20) 1.96 (11/18/20) eKdrt/V 1.5 (03/24/21) 1.36 (02/17/21) 1.62 (01/20/21) 1.49 (12/23/20) 1.69 (11/18/20) spKt/V (Daugirdas II) 1.6300 (03/24/21) 1.4900 (02/17/21) 1.8000 (01/20/21) 1.6600 (12/23/20) 1.8400 (11/18/20) Dialysis is adequate. Achieves prescribed time - Yes Achieves prescribed frequency - Yes Continue current prescription. Vascular Access Assessment Type of access: [id number]/2019 Surgeon - Lary GARDNER Access working well Anemia Assessment HEMOGLOBIN (G/DL) IN BLOOD g/dL 11.4 (04/14/21) 10.8 (04/07/21) 11.0 (03/31/21) 11.3 (03/24/21) 11.4 (03/17/21) PLATELETS 1000/mcL 135 (03/24/21) 190 (02/17/21) 186 (01/20/21) 168 (12/23/20) 145 (11/18/20) IRON SATURATION % 28 (03/24/21) 20 (02/17/21) 24 (01/20/21) 25 (12/23/20) 28 (11/18/20) FERRITIN ng/mL 857 (03/24/21) 837 (02/24/21) 925 (01/27/21) 837 (12/23/20) 1317 (09/23/20) Hemoglobin is above goal. Iron Saturation is at goal. Ferritin is at goal. Will adjust NATALEE and intravenous iron per protocol. Nutritional and Metabolic Assessment ALBUMIN (G/DL) g/dL 3.9 (03/24/21) 3.7 (02/17/21) 3.8 (01/20/21) 3.5 (12/23/20) 3.6 (11/18/20) Sodium mEq/L 135 (03/24/21) 136 (02/17/21) 136 (01/20/21) 136 (12/23/20) 137 (11/18/20) POTASSIUM (MMOL/L) IN SER/PLAS mEq/L 5.7 (03/24/21) 4.8 (02/17/21) 5.5 (01/20/21) 4.6 (12/23/20) 5.3 (11/18/20) BICARBONATE (CO2) mEq/L 23 (03/24/21) 26 (02/17/21) 22 (01/20/21) 21 (12/23/20) 24 (11/18/20) 25 OH VITAMIN D ng/mL 38.3 (03/24/21) 37.9 (09/23/20) Albumin is below goal. Encourage high-biological value protein intake. Potassium is at goal. Bicarbonate is at goal. Continue same bicarbonate in dialysate. Bone and Mineral Metabolism Assessment Calcium mg/dL 9.7 (03/31/21) 10.6 (03/24/21) 10.7 (03/03/21) 10.4 (02/17/21) 9.9 (01/20/21) CALCIUM (MG/DL) CORRECTED FOR ALBUMIN IN SER/PLAS mg/dL 10.7 (03/24/21) 10.6 (02/17/21) 10.1 (01/20/21) 9.8 (12/23/20) 9.3 (11/18/20) PHOSPHATE (MG/DL) IN SER/PLAS mg/dL 5.5 (03/24/21) 5.6 (02/17/21) 5.4 (01/20/21) 4.0 (12/23/20) 5.9 (11/18/20) CALCIUM PHOSPHORUS PRODUCT, COR 59 (03/24/21) 59 (02/17/21) 55 (01/20/21) 39 (12/23/20) 55 (11/18/20) IPTH pg/mL 1309 (03/31/21) 977 (03/24/21) 546 (02/17/21) 637 (01/20/21) 493 (12/23/20) Corrected Calcium is above goal. Phosphorous is at goal. Intact PTH is above goal. Machine Carton Marker will adjust binders and vitamin D per protocol and continue to provide dietary education. HE has severe nausea and vomiting with Sensipar, can not use anymore Approved for Parsabiv, started and tolerating so far. Labs today. Cardiovascular Assessment Blood pressures reviewed and are acceptable. Intradialytic weight gains are too high. Estimated dry weight is appropriate. Discussed fluid restriction multiple times, IDWG's remain high. Will need occasional extra run to maintain dry weight. Transplant Status: Patient is not a candidate. Weight, co-morbidities, age Resuscitation Status Stable dialysis, no changes to prescription Aggressive UF rest of week as tolerated to avoid pulmonary edema Continue Parsabiv Monthly labs drawn today Ernie Pompa MD [ Signed And locked electronically On 04/21/2021 at 09:01:21 AM ] Transcribed: Erine Pompa ( 04/21/2021 ) documented in this encounter Plan of Treatment Not on filedocumented as of this encounter Visit Diagnoses Not on filedocumented in this encounter
--- OUTSIDE RECORDS SUMMARY | 2021-10-27 05:42 | XMS_ITS | Encounter Summary ---
:1945 Author Organization [facility] Address [address] [place] [address] Care Team Providers Name Role Phone Unavailable Primary Care Provider Unavailable Encounter Details Date Type Department Care Team Description 05/26/2021 Treatment [facility] f Ernie Guzmán MD [address] [place] [address] [place], [place] [phone] [phone] (Wo rk) Social History Tobacco Use Types Packs/Day Years Used Date Smoking Tobacco: Unknown Comments: Smoking History Info:Patient n ot screened Sex Assigned at Date Recorded Not on file documented as of this encounter Miscellaneous Notes Dialysis Note - Ernie Pompa MD - 05/26/2021 10:14 AM CST Date: May 26, 2021 Patient Name: Shaun Ocampo : 1945 Chart #: [id number] Sex: M This patient was personally seen for a complete visit as part of routine monthly dialysis care. A review of the dialysis treatment, blood pressure, estimated dry weight and recent lab values was made. These were discussed with the patient and staff as necessary. Treatment Data for 05/26/2021 started at:8:02 AM Dialyzer: 180NRe Optiflux Na: 138 mEq/L Bicarb: 34 mEq/L Dialysate: 2.0 K, 2.25 Ca, 1.0 Mg, 100 Dextrose (G2231) Dialysate/Machine Temp (prescribed): 37 C Dialysate/Machine Temp (actual): 36.2 C BFR (prescribed): 400 BFR (actual): 400 Prescribed time: 04:00 EDW: 109 kg Access Type: Active (In Use):AVFistula-Standard/Left Upper Arm Pre Dialysis Vitals (for 05/26/2021 8:01 AM ) Pre BP (sit): 123/54 Pre Wt: 115.2 kg Temp: 96.7 F Post Dialysis Vitals (for 05/24/2021 12:04 PM ) Post BP (sit): 128/49 Post Wt: 111.9 kg Current Dialysis Vitals (for 05/26/2021 9:35 AM ) BP (sit): 117/59 AP(-) / SUPERVISOR DOG LICENSE OFFICER: 176/154 Pulse: 78 Chairside data as of 05/26/2021 9:35 AM Last 3 Treatments 05/24/2021 05/21/2021 05/20/2021 EDW (kg) 109 109 109 Weight Pre (kg) 116.3 113.9 115.3 Weight Post (kg) 111.9 110 111.5 Dialytic Weight Loss (kg) -4.4 -3.9 -3.8 EDW Deviation (kg) 2.9 1 2.5 BP Sit Pre 132/73 142/61 113/47 BP Sit Post 128/49 116/49 107/52 UF Rate (mL/kg/hr) 10 9 12 Prescribed BFR 400 400 400 Average Delivered BFR 410 400 400 Prescribed Treatment Time 04:00 04:00 03:00 Actual Treatment Time 04:01 04:03 02:59 Last 3 Values 04/23/2021 04/02/2021 02/05/2021 Access Flow 1249 1499 1384 Treatment Medication Orders Medication Sig Start Date End Date Doxercalciferol (Hectorol) 1 mcg IVP Every Treatment 05/14/2021 05/13/2022 Etelcalcetide (Parsabiv) 5 mg IVP 3X Week Post Dialysis 04/28/2021 04/27/2022 Heparin Sodium (Porcine) 1,000 Units/mL Systemic 2000 units IVP Every Treatment 03/29/2021 03/28/2022 Heparin Sodium (Porcine) 1,000 Units/mL Systemic 1000 units IVP Every Treatment 03/29/2021 03/28/2022 Iron Sucrose (Venofer) 50 mg IVP 1X Week 04/12/2021 04/11/2022 Mircera 60 mcg IVP Every 2 weeks 05/26/2021 05/25/2022 COOKIE MIXER HELPER: Ernie Pompa MD LOCATION: [facility] [phone] SCHEDULE: -- 2nd Shift EDW: kg. DIALYZER: HD DURATION: NEEDLE SIZE: ANTICOAG: BATH: QB: ml/min QD: ml/min Subjective Tolerating dialysis well. 05/26/21: Has SOB when >5 Kg over dry weight, extra run last week at [place] helped. Trying his best with fluid restriction. [...] well. He had extra run prior to [facility] and ran [facility] that week an got [...] extra run and we discussed going to [place] tomorrow for UF only run and he [...] again today, may need extra run at [place] if can't get down over next week. 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 06/10: Doing well overall, no new complaints, [...] Went to Urgent care -> ER in [place] yesterday,CT with R hydro but no obstructive [...] He had infiltration last week, dialyzed at [facility] on Sat and went well, access [...] yet and still with mild edema. 08/27: Sahun is doing really well, no symptoms with [...] virtually with video during the COVID- pandemic. Shaun is doing well. He has [...] made. Treatment and Adequacy Assessment BUN mg/dL 43 (05/21/21) 48 (05/19/21) 61 [...] (05/19/21) 1.5300 (04/21/21) 1.6300 (03/24/21) 1.4900 (02/17/21) Dialysis is adequate. Achieves prescribed time - Yes Achieves prescribed frequency - Yes Continue current prescription. Vascular Access Assessment Type of access: [id number] Surgeon - Lary KUMARW Access working well Anemia Assessment HEMOGLOBIN (G/DL) IN BLOOD g/dL 11.0 (05/19/21) 10.4 (05/12/21) 10.3 (05/05/21) 10.4 (04/28/21) 10.8 (04/21/21) PLATELETS 1000/mcL 149 (05/19/21) 155 (04/21/21) 135 (03/24/21) 190 (02/17/21) 186 (01/20/21) IRON SATURATION % 35 (05/19/21) 27 (04/21/21) 28 (03/24/21) 20 (02/17/21) 24 (01/20/21) FERRITIN ng/mL 640 (05/21/21) 857 (03/24/21) 837 (02/24/21) 925 (01/27/21) 837 (12/23/20) Hemoglobin is at goal. Iron Saturation is at goal. Ferritin is at goal. Will adjust NATALEE and intravenous iron per protocol. Nutritional and Metabolic Assessment ALBUMIN (G/DL) g/dL 3.7 (05/19/21) 4.0 (04/21/21) 3.9 (03/24/21) 3.7 (02/17/21) 3.8 (01/20/21) Sodium mEq/L 136 (05/19/21) 136 (04/21/21) 135 (03/24/21) 136 (02/17/21) 136 (01/20/21) POTASSIUM (MMOL/L) IN SER/PLAS mEq/L 5.0 (05/19/21) 5.4 (04/21/21) 5.7 (03/24/21) 4.8 (02/17/21) 5.5 (01/20/21) BICARBONATE (CO2) mEq/L 20 (05/19/21) 20 (04/21/21) 23 (03/24/21) 26 (02/17/21) 22 (01/20/21) 25 OH VITAMIN D ng/mL 38.3 (03/24/21) 37.9 (09/23/20) Albumin is below goal. Encourage high-biological value protein intake. Potassium is at goal. Bicarbonate is at goal. Continue same bicarbonate in dialysate. Bone and Mineral Metabolism Assessment Calcium mg/dL 9.1 (05/19/21) 9.6 (05/17/21) 9.3 (05/05/21) 9.6 (04/21/21) 9.7 (03/31/21) CALCIUM (MG/DL) CORRECTED FOR ALBUMIN IN SER/PLAS mg/dL 9.3 (05/19/21) 9.6 (04/21/21) 10.7 (03/24/21) 10.6 (02/17/21) 10.1 (01/20/21) PHOSPHATE (MG/DL) IN SER/PLAS mg/dL 4.7 (05/19/21) 4.7 (04/21/21) 5.5 (03/24/21) 5.6 (02/17/21) 5.4 (01/20/21) CALCIUM PHOSPHORUS PRODUCT, COR 44 (05/19/21) 45 (04/21/21) 59 (03/24/21) 59 (02/17/21) 55 (01/20/21) IPTH pg/mL 1115 (05/17/21) 1457 (05/05/21) 1441 (04/21/21) 1309 (03/31/21) 977 (03/24/21) Corrected Calcium is above goal. Phosphorous is at goal. Intact PTH is above goal. Clinical Exercise Specialist will adjust binders and vitamin D per protocol and continue to provide dietary education. HE has severe nausea and vomiting with Sensipar, can not use anymore Approved for Parsabiv, started and tolerating so far. PTH improving Cardiovascular Assessment Blood pressures reviewed and are acceptable. Intradialytic weight gains are too high. Estimated dry weight is appropriate. Discussed fluid restriction multiple times, IDWG's remain high. Will need occasional extra run to maintain dry weight. Transplant Status: Patient is not a candidate. 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
--- OUTSIDE RECORDS SUMMARY | 2021-10-27 05:42 | XMS_ITS | Encounter Summary ---
:1945 Author Organization [facility] Address [address] [place] [address] Care Team Providers Name Role Phone Unavailable Primary Care Provider Unavailable Encounter Details Date Type Department Care Team Description 06/23/2021 [facility] Only [facility] O f Ernie Guzmán MD [phone] [place] [address] [place], [place] [phone] (Wo rk) Social History Tobacco Use Types Packs/Day Years Used Date Smoking Tobacco: Unknown Comments: Smoking History Info:Patient n ot screened Sex Assigned at Date Recorded Not on file documented as of this encounter Plan of Treatment Not on filedocumented as of this encounter Procedures Procedure Name Priority Date/Time Associated Diagnosis Comme nts HD KINETICS Routine 06/23/2021 Results for thi s procedure are i n the results section . POST CHEMISTRY Routine 06/23/2021 Results for t his procedure are i n the results section . IMMUNO CHEMISTRY Routine 06/23/2021 Results for this procedure are i n the results section . HEMATOLOGY Routine 06/23/2021 Results for thi s procedure are i n the results section . CHEMISTRY Routine 06/23/2021 Results for thi s procedure are i n the results section . CHEMISTRY Routine 06/23/2021 Results for thi s procedure are i n the results section . SPECTRA KAMERON LAB RESULTS Routine 06/23/2021 Resul ts for this procedure are i n the results section . documented in this encounter Results Spectra KAMERON Lab Results (06/23/2021) P athologist Signature spKt/V 1.47 KAMERON (Daugirdas II) eKt/V 1.28 KAMERON ([place]) Specimen (Source) Anatomical Location Collection Method / Collectio n Time Received Time / Laterality Volume 06/23/2021 06/23/2021 Kameron Ordering Provider LAB BLOOD ORDERABLES Performing Organization Address City/[facility]/ZIP Code Phon e Number KAMERON (ABNORMAL) HEMATOLOGY (06/23/2021) Analysis Performed At Patho logist Time Signature Hemoglobin 9.6 (L) 14.0 - APS SPECTRA 18.0 g/dL [facility] Hemoglobin x 3 28.8 (L) 42.0 - APS SPECTRA 54.0 % [facility] Specimen (Source) Anatomical Collection Method Collection Time Re ceived Time Location / / Volume Laterality 06/23/2021 06/28/2021 3:23 PM CDT Narrative APS SPECTRA [facility] - 06/28/2021 Unless otherwise specified, test(s) performed at: [facility], [address] [place], [place] [id number] ASPHALT WORKER: Alec Payan M.D. For any questions, please call customer service at FREQUENCY:MONTHLY Resulting Agency Comment Specimen source: Blood Ernie Pompa MD LAB BLOOD ORDERABLES Performing Organization Address City/[facility]/ZIP Code Phon e Number APS SPECTRA [facility] HD KINETICS (06/23/2021) P athologist Signature % Urea 71 65 - 80 % APS SPECTRA Reduction [facility] Specimen (Source) Anatomical Collection Method Collection Time Re ceived Time Location / / Volume Laterality 06/23/2021 06/28/2021 12:3 1 PM CDT Resulting Agency Comment Specimen source: Plasma Ernie Pompa MD LAB BLOOD ORDERABLES Performing Organization Address City/[facility]/ZIP Code Phon e Number APS SPECTRA [facility] POST CHEMISTRY (06/23/2021) P athologist Signature BUN Post 19 6 - 19 APS SPECTRA Dialysis mg/dL [facility] Specimen (Source) Anatomical Collection Method Collection Time Re ceived Time Location / / Volume Laterality 06/23/2021 06/28/2021 12:3 1 PM CDT Narrative APS SPECTRA [facility] - 06/28/2021 Unless otherwise specified, test(s) performed at: [facility], [address] [place] [address] ASPHALT WORKER: Alec Payan, M.D. For any questions, please call customer service at FREQUENCY:MONTHLY Resulting Agency Comment Specimen source: Plasma Ernie Pompa MD LAB BLOOD ORDERABLES Performing Organization Address City/State/ZIP Code Phon e Number APS SPECTRA [facility] IMMUNO CHEMISTRY (06/23/2021) P athologist Signature Hep B Surface Negative Negative APS SPECTRA Ag [facility] Specimen (Source) Anatomical Collection Method Collection Time Re ceived Time Location / / Volume Laterality 06/23/2021 06/28/2021 11:2 5 AM CDT Resulting Agency Comment Specimen source: Serum Ernie Pompa MD LAB BLOOD ORDERABLES Performing Organization Address City/State/ZIP Code Phon e Number APS SPECTRA [facility] (ABNORMAL) Spectrae Chemistry (06/23/2021) Patholo gist Method Time Signature BUN 66 (H) 6 - 19 APS SPECTRA mg/dL [facility] Creatinine 6.63 (H) 0.60 - APS SPECTRA 1.30 mg/dL [facility] BUN/Creatinine 10.0 10.0 - APS SPECTRA Ratio 20.0 [facility] Sodium 137 136 - 145 APS SPECTRA mEq/L [facility] Potassium 4.9 3.5 - 5.1 APS SPECTRA mEq/L [facility] Chloride 96 96 - 108 APS SPECTRA mEq/L [facility] Bicarbonate 22 22 - 29 APS SPECTRA (CO2) mEq/L [facility] Calcium 9.0 8.4 - 10.2 APS SPECTRA mg/dL [facility] Corrected 9.2 8.4 - 10.2 APS SPECTRA Calcium mg/dL [facility] Comment: Corrected Calcium is not equivalent to m easured Ionized Calcium. Phosphorus 4.4 2.6 - 4.5 mg/dL APS SPECTRA [facility] Calcium Phosphorus Product 40 0 - 54 APS SPECTRA [facility] Calcium Phosporus Product, Cor 40 0 - 54 APS SPECTRA [facility] Alkaline Phosphatase 124 40 - 129 U/L APS SP ECTRA [facility] Total Protein 6.5 6.0 - 8.5 g/dL APS SPECTRA [facility] Albumin 3.7 3.5 - 5.2 g/dL APS SPECTRA [facility] [place] Globulin, Total 2.8 2.0 - 4.0 g/dL APS SPECT RA [facility] A/G Ratio 1.3 1.0 - 2.0 APS SPECTRA [facility] Magnesium 1.9 1.6 - 2.6 mg/dL APS SPECTRA [facility] Ferritin 640 (H) 22 - 322 ng/mL APS SPECTRA [facility] [place] Iron 78 45 - 160 mcg/dL APS SPECTRA [place] [facility] UIBC 171 155 - 355 mcg/dL APS SPECTRA [facility] TIBC 249 185 - 515 mcg/dL APS SPECTRA [facility] Iron Saturation (TSat) 31 20 - 55 % APS SPE CTRA [facility] Specimen (Source) Anatomical Collection Method Collection Time Re ceived Time Location / / Volume Laterality 06/23/2021 06/28/2021 11:2 5 AM CDT Narrative APS SPECTRA [facility] - 06/28/2021 Unless otherwise specified, test(s) performed at: [facility], [address] [place] [address] ASPHALT WORKER: Alec Payan M.D. For any questions, please call customer service at FREQUENCY:MONTHLY Resulting Agency Comment Specimen source: Serum Ernie Pompa MD LAB BLOOD ORDERABLES Performing Organization Address City/[facility] Phon e Number APS SPECTRA [facility] (ABNORMAL) Spectrae Chemistry (06/23/2021) P athologist Signature PTH 1,243 (H) 16 - 80 APS SPECTRA pg/mL [facility] Specimen (Source) Anatomical Collection Method Collection Time Re ceived Time Location / / Volume Laterality 06/23/2021 06/28/2021 10:1 5 AM CDT Narrative APS SPECTRA [facility] - 06/28/2021 Unless otherwise specified, test(s) performed at: [facility], [address] [place] [id number] ASPHALT WORKER: Alec Payan M.D. For any questions, please call customer service at FREQUENCY:MONTHLY Resulting Agency Comment Specimen source: Plasma Ernie Pompa MD LAB BLOOD ORDERABLES Performing Organization Address City/[facility] Code Phon e Number APS SPECTRA [facility] documented in this encounter Visit Diagnoses Not on filedocumented in this encounter
--- OUTSIDE RECORDS SUMMARY | 2021-10-27 05:42 | XMS_ITS | Encounter Summary ---
:1945 Author Organization [facility] Address [address] [place] [address] Care Team Providers Name Role Phone Unavailable Primary Care Provider Unavailable Encounter Details Date Type Department Care Team Description 07/14/2021 Orders Only [facility] O f Ernie Guzmán MD [phone] [place] [address] [place], [place] [phone] (Wo rk) Social History Tobacco Use Types Packs/Day Years Used Date Smoking Tobacco: Unknown Comments: Smoking History Info:Patient n ot screened Sex Assigned at Date Recorded Not on file documented as of this encounter Plan of Treatment Not on filedocumented as of this encounter Procedures Procedure Name Priority Date/Time Associated Diagnosis Comme nts HEMATOLOGY Routine 07/14/2021 Results for thi s procedure are in the resu lts section. documented in this encounter Results (ABNORMAL) HEMATOLOGY (07/14/2021) Analysis Performed At Patho logist Time Signature Hemoglobin 9.8 (L) 14.0 - APS SPECTRA 18.0 g/dL [facility] Hemoglobin x 3 29.4 (L) 42.0 - APS SPECTRA 54.0 % [facility] Specimen (Source) Anatomical Collection Method Collection Time Re ceived Time Location / / Volume Laterality 07/14/2021 07/15/2021 10:0 1 AM CDT Narrative APS SPECTRA [facility] - 07/15/2021 Unless otherwise specified, test(s) performed at: [facility], [address] [place] [address] BROADCAST CORRESPONDENT: Alec Payan M.D. For any questions, please call customer service at FREQUENCY:OTHER Resulting Agency Comment Specimen source: Blood Ernie Pompa MD LAB BLOOD ORDERABLES Performing Organization Address City/State/ZIP Code Phon e Number APS SPECTRA [facility] documented in this encounter Visit Diagnoses Not on filedocumented in this encounter
--- OUTSIDE RECORDS SUMMARY | 2021-10-27 05:42 | XMS_ITS | Encounter Summary ---
:1945 Author Organization [facility] Address [address] [place] [address] Care Team Providers Name Role Phone Unavailable Primary Care Provider Unavailable Encounter Details Date Type Department Care Team Description 05/19/2021 Orders Only [facility] O f Ernie Guzmán MD [phone] [place] [address] [place], [place] [phone] (Wo rk) Social History Tobacco Use Types Packs/Day Years Used Date Smoking Tobacco: Unknown Comments: Smoking History Info:Patient n ot screened Sex Assigned at Date Recorded Not on file documented as of this encounter Plan of Treatment Not on filedocumented as of this encounter Procedures Procedure Name Priority Date/Time Associated Diagnosis Comme nts HD KINETICS Routine 05/19/2021 Results for thi s procedure are i n the results section . POST CHEMISTRY Routine 05/19/2021 Results for t his procedure are i n the results section . IMMUNO CHEMISTRY Routine 05/19/2021 Results for this procedure are i n the results section . HEMATOLOGY Routine 05/19/2021 Results for thi s procedure are i n the results section . CHEMISTRY Routine 05/19/2021 Results for thi s procedure are i n the results section . SPECTRA KAMERON LAB RESULTS Routine 05/19/2021 Resul ts for this procedure are i n the results section . documented in this encounter Results Spectra KAMERON Lab Results (05/19/2021) P athologist Signature spKt/V Gotch 1.45 KAMERON spKt/V 1.38 KAMERON (Daugirdas II) eNPCR 0.81 KAMERON PCR 60.02 KAMERON nPCR_HD 0.89 KAMERON eKt/V 1.20 KAMERON ([place]) eKdrt/V 1.26 KAMERON eKt/V Gotch 1.26 KAMERON Specimen (Source) Anatomical Location Collection Method / Collectio n Time Received Time / Laterality Volume 05/19/2021 05/19/2021 Kameron Ordering Provider LAB BLOOD ORDERABLES Performing Organization Address [facility] Phon e Number KAMERON IMMUNO CHEMISTRY (05/19/2021) P athologist Signature Hep B Surface Negative Negative APS SPECTRA Ag [facility] Specimen (Source) Anatomical Collection Method Collection Time Re ceived Time Location / / Volume Laterality 05/19/2021 05/20/2021 3:10 PM DISCOVERY MANAGER Narrative APS SPECTRA [facility] - 05/20/2021 Unless otherwise specified, test(s) performed at: [facility], [address] [place], [place] [address] MACHINE CERAMIC COATER: Alec Payan M.D. For any questions, please call customer service at FREQUENCY:MONTHLY Resulting Agency Comment Specimen source: Serum Ernie Pompa MD LAB BLOOD ORDERABLES Performing Organization Address [facility] Phon e Number APS SPECTRA [facility] HD KINETICS (05/19/2021) P athologist Signature % Urea 69 65 - 80 % APS SPECTRA Reduction [facility] Specimen (Source) Anatomical Collection Method Collection Time Re ceived Time Location / / Volume Laterality 05/19/2021 05/20/2021 3:12 PM DISCOVERY MANAGER Narrative APS SPECTRA [facility] - 05/20/2021 Unless otherwise specified, test(s) performed at: [facility], [address] [place] [address] MACHINE CERAMIC COATER: Alec Payan M.D. For any questions, please call customer service at FREQUENCY:MONTHLY Resulting Agency Comment Specimen source: Serum Ernie Pompa MD LAB BLOOD ORDERABLES Performing Organization Address [facility] Phon e Number APS SPECTRA [facility] (ABNORMAL) Spectrae Chemistry (05/19/2021) Patholo gist Method Time Signature BUN 48 (H) 6 - 19 APS SPECTRA mg/dL [facility] Creatinine 6.18 (H) 0.60 - APS SPECTRA 1.30 mg/dL [facility] BUN/Creatinine 7.8 (L) 10.0 - APS SPECTRA Ratio 20.0 [facility] Sodium 136 136 - 145 APS SPECTRA mEq/L [facility] Potassium 5.0 3.5 - 5.1 APS SPECTRA mEq/L [facility] Chloride 98 96 - 108 APS SPECTRA mEq/L [facility] Bicarbonate 20 (L) 22 - 29 APS SPECTRA (CO2) mEq/L [facility] Calcium 9.1 8.4 - 10.2 APS SPECTRA mg/dL [facility] Corrected 9.3 8.4 - 10.2 APS SPECTRA Calcium mg/dL [facility] Comment: Corrected Calcium is not equivalent to m easured Ionized Calcium. Phosphorus 4.7 (H) 2.6 - 4.5 mg/dL APS SPECTRA [facility] Calcium Phosphorus Product 43 0 - 54 APS SPECTRA [facility] Calcium Phosporus Product, Cor 44 0 - 54 APS SPECTRA [facility] Total Protein 6.6 6.0 - 8.5 g/dL APS SPECTRA [facility] Albumin 3.7 3.5 - 5.2 g/dL APS SPECTRA [facility] [place] Globulin, Total 2.9 2.0 - 4.0 g/dL APS SPECT RA [facility] A/G Ratio 1.3 1.0 - 2.0 APS SPECTRA [facility] Iron 88 45 - 160 mcg/dL APS SPECTRA [facility] UIBC 167 155 - 355 mcg/dL APS SPECTRA [facility] TIBC 255 185 - 515 mcg/dL APS SPECTRA [facility] Iron Saturation (TSat) 35 20 - 55 % APS SPE CTRA [facility] Specimen (Source) Anatomical Collection Method Collection Time Re ceived Time Location / / Volume Laterality 05/19/2021 05/20/2021 3:10 PM DISCOVERY MANAGER Narrative APS SPECTRA [facility] - 05/20/2021 Unless otherwise specified, test(s) performed at: [facility], [address] [place] [address] MACHINE CERAMIC COATER: Alec Payan M.D. For any questions, please call customer service at FREQUENCY:MONTHLY Resulting Agency Comment Specimen source: Serum Ernie Pompa MD LAB BLOOD ORDERABLES Performing Organization Address City/State/ZIP Code Phon e Number APS SPECTRA [facility] POST CHEMISTRY (05/19/2021) P athologist Signature BUN Post 15 6 - 19 APS SPECTRA Dialysis mg/dL [facility] Specimen (Source) Anatomical Collection Method Collection Time Re ceived Time Location / / Volume Laterality 05/19/2021 05/20/2021 2:08 PM DISCOVERY MANAGER Narrative APS SPECTRA [facility] - 05/20/2021 Unless otherwise specified, test(s) performed at: [facility], [address] [place] [address] MACHINE CERAMIC COATER: Alec Payan M.D. For any questions, please call customer service at FREQUENCY:MONTHLY Resulting Agency Comment Specimen source: Plasma Ernie Pompa MD LAB BLOOD ORDERABLES Performing Organization Address City/State/ZIP Code Phon e Number APS SPECTRA [facility] (ABNORMAL) HEMATOLOGY (05/19/2021) Analysis Performed At Patho logist Time Signature WBC 7.45 4.80 - APS SPECTRA 10.80 [facility] 1000/mcL RBC 3.18 (L) 4.70 - APS SPECTRA 6.10 [facility] mill/mcL Hemoglobin 11.0 (L) 14.0 - APS SPECTRA 18.0 g/dL [facility] Hemoglobin x 3 33.0 (L) 42.0 - APS SPECTRA 54.0 % [facility] Hematocrit 34.3 (L) 42.0 - APS SPECTRA 52.0 % [facility] MCV 108 (H) 80 - 100 APS SPECTRA fl [facility] MCH 34.7 (H) 27.0 - APS SPECTRA 31.0 pg [facility] MCHC 32.1 30.0 - APS SPECTRA 36.0 g/dL [facility] RDW 15.7 (H) 11.5 - APS SPECTRA 14.5 % [facility] Platelets 149 130 - 400 APS SPECTRA 1000/mcL [facility] Specimen (Source) Anatomical Collection Method Collection Time Re ceived Time Location / / Volume Laterality 05/19/2021 05/20/2021 12:5 8 PM DISCOVERY MANAGER Narrative APS SPECTRA [facility] - 05/20/2021 Unless otherwise specified, test(s) performed at: [facility], [address] [place] [address] MACHINE CERAMIC COATER: Alec Payan M.D. For any questions, please call customer service at FREQUENCY:MONTHLY Resulting Agency Comment Specimen source: Blood Ernie Pompa MD LAB BLOOD ORDERABLES Performing Organization Address City/State/ZIP Code Phon e Number APS SPECTRA [facility] documented in this encounter Visit Diagnoses Not on filedocumented in this encounter
--- OUTSIDE RECORDS SUMMARY | 2021-10-27 05:42 | XMS_ITS | Encounter Summary ---
:1945 Author Organization [facility] Address [address] [place] [address] Care Team Providers Name Role Phone Unavailable Primary Care Provider Unavailable Encounter Details Date Type Department Care Team Description 04/07/2021 Orders Only [facility] O f Ernie Guzmán MD [phone] [place] [address] [place], [place] [phone] (Wo rk) Social History Tobacco Use Types Packs/Day Years Used Date Smoking Tobacco: Unknown Comments: Smoking History Info:Patient n ot screened Sex Assigned at Date Recorded Not on file documented as of this encounter Plan of Treatment Not on filedocumented as of this encounter Procedures Procedure Name Priority Date/Time Associated Diagnosis Comme nts HEMATOLOGY Routine 04/07/2021 Results for thi s procedure are in the resu lts section. documented in this encounter Results (ABNORMAL) HEMATOLOGY (04/07/2021) Analysis Performed At Patho logist Time Signature Hemoglobin 10.8 (L) 14.0 - APS SPECTRA 18.0 g/dL [facility] Hemoglobin x 3 32.4 (L) 42.0 - APS SPECTRA 54.0 % [facility] Specimen (Source) Anatomical Collection Method Collection Time Re ceived Time Location / / Volume Laterality 04/07/2021 04/09/2021 11:4 3 AM GAS TREATER Narrative APS SPECTRA [facility] - 04/09/2021 Unless otherwise specified, test(s) performed at: [facility], [address] [place] [address] COURSEWARE DEVELOPER: Alec Payan M.D. For any questions, please call customer service at FREQUENCY:OTHER Resulting Agency Comment Specimen source: Blood Ernie Pompa MD LAB BLOOD ORDERABLES Performing Organization Address City/State/ZIP Code Phon e Number APS SPECTRA [facility] documented in this encounter Visit Diagnoses Not on filedocumented in this encounter
--- OUTSIDE RECORDS SUMMARY | 2021-10-27 05:42 | XMS_ITS | Encounter Summary ---
:1945 Author Organization [facility] Address [address] [place] [address] Care Team Providers Name Role Phone Unavailable Primary Care Provider Unavailable Encounter Details Date Type Department Care Team Description 06/30/2021 Treatment [facility] Ernie Guzmán MD [address] [place] [address] [place], [place] [phone] (Wo rk) Social History Tobacco Use Types Packs/Day Years Used Date Smoking Tobacco: Unknown Comments: Smoking History Info:Patient n ot screened Sex Assigned at Date Recorded Not on file documented as of this encounter Miscellaneous Notes Dialysis Note - Ernie Pompa MD - 06/30/2021 11:03 AM CDT Date: Jun 30, 2021 Patient Name: Shaun Ocampo : 1945 Chart #: [id number] Sex: M This patient was personally seen for a complete visit as part of routine monthly dialysis care. A review of the dialysis treatment, blood pressure, estimated dry weight and recent lab values was made. These were discussed with the patient and staff as necessary. Treatment Data for 06/30/2021 started at:7:03 AM Dialyzer: 180NRe Optiflux Na: 138 mEq/L Bicarb: 34 mEq/L Dialysate: 2.0 K, 2.25 Ca, 1.0 Mg, 100 Dextrose (G2231) Dialysate/Machine Temp (prescribed): 37 C Dialysate/Machine Temp (actual): 36.7 C BFR (prescribed): 400 BFR (actual): 400 Prescribed time: 04:00 EDW: 109 kg Access Type: Active (In Use):AVFistula-Standard/Left Upper Arm Pre Dialysis Vitals (for 06/30/2021 6:54 AM ) Pre BP (sit): 108/56 Pre Wt: 115.8 kg Temp: 98 F Post Dialysis Vitals (for 06/28/2021 2:33 PM ) Post BP (sit): 108/46 Post Wt: 112.6 kg Current Dialysis Vitals (for 06/30/2021 10:31 AM ) BP (sit): 100/42 AP(-) / ELECTRICAL FITTER: 167/131 Pulse: 78 Chairside data as of 06/30/2021 10:31 AM Last 3 Treatments 06/28/2021 06/25/2021 06/23/2021 EDW (kg) 109 109 109 Weight Pre (kg) 114.3 112.9 113.3 Weight Post (kg) 112.6 109.6 109.6 Dialytic Weight Loss (kg) -1.7 -3.3 -3.7 EDW Deviation (kg) 3.6 0.6 0.6 BP Sit Pre 99/54 98/40 123/64 BP Sit Post 108/46 107/52 100/37 UF Rate (mL/kg/hr) 4 8 9 Prescribed BFR 400 400 400 Average Delivered BFR 410 410 410 Prescribed Treatment Time 04:00 04:00 04:00 Actual Treatment Time 03:59 04:00 03:55 Last 3 Values 05/28/2021 04/23/2021 04/02/2021 Access Flow 1102 1249 1119 Treatment Medication Orders Medication Sig Start Date [...] mg IVP 1X Week 04/12/2021 04/11/2022 Mircera 75 mcg IVP Every 4 weeks 06/23/2021 06/22/2022 INTERNATIONAL BANKER: Ernie Pompa MD LOCATION: [phone] SCHEDULE: -- 2nd Shift EDW: kg. DIALYZER: HD DURATION: NEEDLE SIZE: ANTICOAG: BATH: QB: ml/min QD: ml/min Subjective Tolerating dialysis well. 06/30/21: Had EGD prior to HD on Monday, had anessthetic, nausea and low BP on treatment that day andminimal fluid removed so now significantly over dry weight. Feels better today, but still a little weak and nauseated. Was feeling great last week. 06/09/21: Feels better today, had steroid injections in knees yesterday at [facility]. To do PT as well. He pulled muscle in his lower arm on L side last week getting into car, hurt a lot but is improving. Fluid gains continue to be high, [facility] not open on this week, says he will do his best withlimiting salt/fluid. HE does feel SOB with exertion with extra fluid on, no orthopnea. 05/26/21: Has SOB when >5 Kg over dry weight, extra run last week at [facility] helped. Trying his best with fluid restriction. [...] extra run and we discussed going to [facility] tomorrow for UF only run and he [...] again today, may need extra run at [facility] if can't get down over next week. [...] high that have been difficult to manage. 4/21: 3.4 Kg gain today, ?7 available, ok with staying extra 30 min on Monday if he feels well for additional UF. He has no SOB. Chronic edema. 07/01: Doing well, feels great. Big problem is fluid gains, discussed in great detail again today. 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 06/10: Doing well overall, no new complaints, [...] Went to Urgent care -> ER in [place] yesterday,CT with R hydro but no obstructive [...] He had infiltration last week, dialyzed at [facility] on Sat and went well, access [...] Clear to auscultation bilaterally. nl effort Cardiovascular - Regular rate. Regular rhythm. No [...] prescription. Vascular Access Assessment Type of access: [email or web address]/2019 Surgeon Annita KUMARW Access working well Anemia Assessment HEMOGLOBIN (G/DL) IN BLOOD g/dL 9.6 (06/23/21) 10.9 (06/16/21) 10.8 (06/09/21) 10.9 (06/02/21) 10.6 (05/26/21) PLATELETS 1000/mcL 149 (05/19/21) 155 (04/21/21) 135 [...] Bone and Mineral Metabolism Assessment Calcium mg/dL 9.0 (06/23/21) 9.7 (05/26/21) 9.1 (05/19/21) 9.6 (05/17/21) 9.3 (05/05/21) CALCIUM (MG/DL) CORRECTED FOR ALBUMIN IN SER/PLAS mg/dL 9.2 (06/23/21) 9.3 (05/19/21) 9.6 (04/21/21) 10.7 (03/24/21) 10.6 (02/17/21) PHOSPHATE (MG/DL) IN SER/PLAS mg/dL 4.4 (06/23/21) 4.7 (05/19/21) 4.7 (04/21/21) 5.5 (03/24/21) 5.6 (02/17/21) CALCIUM PHOSPHORUS PRODUCT, COR 40 (06/23/21) 44 (05/19/21) 45 (04/21/21) 59 (03/24/21) 59 (02/17/21) IPTH pg/mL 1243 (06/23/21) 1356 (05/26/21) 1115 (05/17/21) 1457 (05/05/21) 1441 (04/21/21) Corrected Calcium is at goal. Phosphorous is at goal. Intact PTH is above goal. Starch Mangle Tender will adjust binders and vitamin D per protocol and continue to provide dietary education. HE has severe nausea and vomiting with Sensipar, can not use anymore He will benefit from Parsabiv with dose titration to achieve PTH <600 Cardiovascular Assessment Blood pressures reviewed and are acceptable. Intradialytic weight gains are too high. Estimated dry weight is appropriate. Discussed fluid restriction multiple times, IDWG's remain high but a little better. Transplant Status: Patient is not a candidate. Weight, co-morbidities, age Resuscitation Status Stable dialysis, no changes to prescription Extra UF run tomorrow at [facility] Continue work on lower IDWG's Ernie Pompa MD [ Signed And locked electronically On 06/30/2021 at 11:05:31 AM ] Transcribed: Ernie Pompa ( 06/30/2021 ) documented in this encounter Plan of Treatment Not on filedocumented as of this encounter Visit Diagnoses Not on filedocumented in this encounter
--- OUTSIDE RECORDS SUMMARY | 2021-10-27 05:42 | XMS_ITS | Encounter Summary ---
:1945 Author Organization [facility] Address [address] [place] [address] Care Team Providers Name Role Phone Unavailable Primary Care Provider Unavailable Encounter Details Date Type Department Care Team Description 04/28/2021 Orders Only [facility] f Ernie Guzmán MD [phone] [place] [address] [place], [place] [phone] (Wo rk) Social History Tobacco Use Types Packs/Day Years Used Date Smoking Tobacco: Unknown Comments: Smoking History Info:Patient n ot screened Sex Assigned at Date Recorded Not on file documented as of this encounter Plan of Treatment Not on filedocumented as of this encounter Procedures Procedure Name Priority Date/Time Associated Diagnosis Comme nts HEMATOLOGY Routine 04/28/2021 Results for thi s procedure are in the resu lts section. documented in this encounter Results (ABNORMAL) HEMATOLOGY (04/28/2021) Analysis Performed At Patho logist Time Signature Hemoglobin 10.4 (L) 14.0 - [facility] 18.0 g/dL [facility] Hemoglobin x 3 31.2 (L) 42.0 - [facility] 54.0 % [facility] Specimen (Source) Anatomical Collection Method Collection Time Re ceived Time Location / / Volume Laterality 04/28/2021 04/29/2021 12:1 6 PM DIAGNOSTIC TECHNOLOGIST Narrative [facility] - 04/29/2021 Unless otherwise specified, test(s) performed at: [facility], [address] [place] [id number] AIRCRAFT SYSTEMS REPAIRER: Alec Payan M.D. For any questions, please call customer service at FREQUENCY:OTHER Resulting Agency Comment Specimen source: Blood Ernie Pompa MD LAB BLOOD ORDERABLES Performing Organization Address City/State/ZIP Code Phon e Number [facility] documented in this encounter Visit Diagnoses Not on filedocumented in this encounter
--- OUTSIDE RECORDS SUMMARY | 2021-10-27 05:42 | XMS_ITS | Encounter Summary ---
:1945 Author Organization [facility] Address [address] [place] [address] Care Team Providers Name Role Phone Unavailable Primary Care Provider Unavailable Encounter Details Date Type Department Care Team Description 05/05/2021 Orders Only [facility] f Ernie Guzmán MD [phone] [place] [address] [place], [place] [phone] (Wo rk) Social History Tobacco Use Types Packs/Day Years Used Date Smoking Tobacco: Unknown Comments: Smoking History Info:Patient n ot screened Sex Assigned at Date Recorded Not on file documented as of this encounter Plan of Treatment Not on filedocumented as of this encounter Procedures Procedure Name Priority Date/Time Associated Diagnosis Comme nts HEMATOLOGY Routine 05/05/2021 Results for thi s procedure are in the resu lts section. CHEMISTRY Routine 05/05/2021 Results for thi s procedure are in the resu lts section. CHEMISTRY Routine 05/05/2021 Results for thi s procedure are in the resu lts section. documented in this encounter Results [facility] Chemistry (05/05/2021) P athologist Signature Calcium 9.3 8.4 - 10.2 [facility] mg/dL [facility] Specimen (Source) Anatomical Collection Method Collection Time Re ceived Time Location / / Volume Laterality 05/05/2021 05/06/2021 8:46 PM FAMILY PRACTITIONER Narrative [facility] - 05/07/2021 Unless otherwise specified, test(s) performed at: [facility], [address] [place] [id number] PRIMARY SCHOOL TEACHER LIBRARIAN: Alec Payan M.D. For any questions, please call customer service at FREQUENCY:OTHER Resulting Agency Comment Specimen source: Serum Ernie Pompa MD LAB BLOOD ORDERABLES Performing Organization Address City/[facility]/ZIP Code Phon e Number [facility] (ABNORMAL) HEMATOLOGY (05/05/2021) Analysis Performed At Patho logist Time Signature Hemoglobin 10.3 (L) 14.0 - [facility] 18.0 g/dL [facility] Hemoglobin x 3 30.9 (L) 42.0 - [facility] 54.0 % [facility] Specimen (Source) Anatomical Collection Method Collection Time Re ceived Time Location / / Volume Laterality 05/05/2021 05/06/2021 5:29 PM FAMILY PRACTITIONER Narrative [facility] - 05/06/2021 Unless otherwise specified, test(s) performed at: [facility], [address] [place], [place] [id number] PRIMARY SCHOOL TEACHER LIBRARIAN: Alec Payan M.D. For any questions, please call customer service at FREQUENCY:OTHER Resulting Agency Comment Specimen source: Blood Ernie Pompa MD LAB BLOOD ORDERABLES Performing Organization Address [facility] Phon e Number [facility] (ABNORMAL) [facility]rae Chemistry (05/05/2021) P athologist Signature PTH 1,457 (H) 16 - 80 [facility] pg/mL [facility] Specimen (Source) Anatomical Collection Method Collection Time Re ceived Time Location / / Volume Laterality 05/05/2021 05/06/2021 5:24 PM FAMILY PRACTITIONER Narrative [facility] - 05/06/2021 Unless otherwise specified, test(s) performed at: [facility], [address] [place] [id number] PRIMARY SCHOOL TEACHER LIBRARIAN: Alec Payan M.D. For any questions, please call customer service at FREQUENCY:OTHER Resulting Agency Comment Specimen source: Plasma Ernie Pompa MD LAB BLOOD ORDERABLES Performing Organization Address City/[facility] Phon e Number [facility] documented in this encounter Visit Diagnoses Not on filedocumented in this encounter
--- OUTSIDE RECORDS SUMMARY | 2021-10-27 05:42 | XMS_ITS | Encounter Summary ---
:1945 Author Organization [facility] Address [address] [place] [address] Care Team Providers Name Role Phone Unavailable Primary Care Provider Unavailable Encounter Details Date Type Department Care Team Description 03/31/2021 Orders Only [facility] f Ernie Guzmán MD [phone] [place] [address] [place], [place] [phone] (Wo rk) Social History Tobacco Use Types Packs/Day Years Used Date Smoking Tobacco: Unknown Comments: Smoking History Info:Patient n ot screened Sex Assigned at Date Recorded Not on file documented as of this encounter Plan of Treatment Not on filedocumented as of this encounter Procedures Procedure Name Priority Date/Time Associated Diagnosis Comme nts HEMATOLOGY Routine 03/31/2021 Results for thi s procedure are in the resu lts section. CHEMISTRY Routine 03/31/2021 Results for thi s procedure are in the resu lts section. CHEMISTRY Routine 03/31/2021 Results for thi s procedure are in the resu lts section. documented in this encounter Results [facility] Chemistry (03/31/2021) P athologist Signature Calcium 9.7 8.4 - 10.2 [facility] mg/dL [facility] Specimen (Source) Anatomical Collection Method Collection Time Re ceived Time Location / / Volume Laterality 03/31/2021 04/01/2021 10:3 5 PM CUPOLA TAPPER Narrative [facility] - 04/02/2021 Unless otherwise specified, test(s) performed at: [facility], [address] [place] [address] JOURNALISM TEACHER: Alec Payan M.D. For any questions, please call customer service at FREQUENCY:OTHER Resulting Agency Comment Specimen source: Serum Ernie Pompa MD LAB BLOOD ORDERABLES Performing Organization Address City/[facility]/ZIP Code Phon e Number [facility] (ABNORMAL) Spectrae Chemistry (03/31/2021) P athologist Signature PTH 1,309 (H) 16 - 80 [facility] pg/mL [facility] Specimen (Source) Anatomical Collection Method Collection Time Re ceived Time Location / / Volume Laterality 03/31/2021 04/01/2021 4:18 PM CUPOLA TAPPER Narrative [facility] - 04/02/2021 Unless otherwise specified, test(s) performed at: [facility], [address] [place], [place] [id number] JOURNALISM TEACHER: Alec Payan M.D. For any questions, please call customer service at FREQUENCY:OTHER Resulting Agency Comment Specimen source: Plasma Ernie Pompa MD LAB BLOOD ORDERABLES Performing Organization Address [facility] Phon e Number [facility] (ABNORMAL) HEMATOLOGY (03/31/2021) Analysis Performed At Patho logist Time Signature Hemoglobin 11.0 (L) 14.0 - [facility] 18.0 g/dL [facility] Hemoglobin x 3 33.0 (L) 42.0 - [facility] 54.0 % [facility] Specimen (Source) Anatomical Collection Method Collection Time Re ceived Time Location / / Volume Laterality 03/31/2021 04/01/2021 3:40 PM CUPOLA TAPPER Narrative [facility] - 04/02/2021 Unless otherwise specified, test(s) performed at: [facility], [address] [place] [address] JOURNALISM TEACHER: Alec Payan M.D. For any questions, please call customer service at FREQUENCY:OTHER Resulting Agency Comment Specimen source: Blood Ernie Pompa MD LAB BLOOD ORDERABLES Performing Organization Address City/[facility] Phon e Number [facility] documented in this encounter Visit Diagnoses Not on filedocumented in this encounter
--- OUTSIDE RECORDS SUMMARY | 2021-10-27 05:42 | XMS_ITS | Encounter Summary ---
:1945 Author Organization [facility] Address [address] [place] [address] Care Team Providers Name Role Phone Unavailable Primary Care Provider Unavailable Encounter Details Date Type Department Care Team Description 06/09/2021 Orders Only [facility] O f Ernie Guzmán MD [phone] [place] [address] [place], [place] [phone] (Wo rk) Social History Tobacco Use Types Packs/Day Years Used Date Smoking Tobacco: Unknown Comments: Smoking History Info:Patient n ot screened Sex Assigned at Date Recorded Not on file documented as of this encounter Plan of Treatment Not on filedocumented as of this encounter Procedures Procedure Name Priority Date/Time Associated Diagnosis Comme nts HEMATOLOGY Routine 06/09/2021 Results for thi s procedure are in the resu lts section. documented in this encounter Results (ABNORMAL) HEMATOLOGY (06/09/2021) Analysis Performed At Patho logist Time Signature Hemoglobin 10.8 (L) 14.0 - [facility] 18.0 g/dL [facility] Hemoglobin x 3 32.4 (L) 42.0 - [facility] 54.0 % [facility] Specimen (Source) Anatomical Collection Method Collection Time Re ceived Time Location / / Volume Laterality 06/09/2021 06/10/2021 10:5 3 AM CDT Narrative [facility] - 06/10/2021 Unless otherwise specified, test(s) performed at: [facility], [address] [place] [id number] GRAIN UNLOADER MACHINE: Alec Payan M.D. For any questions, please call customer service at FREQUENCY:OTHER Resulting Agency Comment Specimen source: Blood Ernie Pompa MD LAB BLOOD ORDERABLES Performing Organization Address City/State/ZIP Code Phon e Number [facility] documented in this encounter Visit Diagnoses Not on filedocumented in this encounter
--- OUTSIDE RECORDS SUMMARY | 2021-10-27 05:43 | XMS_ITS | Encounter Summary ---
:1945 Author Organization [facility] Address [address] [place] [address] Care Team Providers Name Role Phone Unavailable Primary Care Provider Unavailable Encounter Details Date Type Department Care Team Description 01/13/2021 Orders Only [facility] O f Ernie Guzmán MD [phone] [place] [address] [place], [place] [phone] (Wo rk) Social History Tobacco Use Types Packs/Day Years Used Date Smoking Tobacco: Unknown Comments: Smoking History Info:Patient n ot screened Sex Assigned at Date Recorded Not on file documented as of this encounter Plan of Treatment Not on filedocumented as of this encounter Procedures Procedure Name Priority Date/Time Associated Diagnosis Comme nts HEMATOLOGY Routine 01/13/2021 Results for thi s procedure are in the resu lts section. documented in this encounter Results (ABNORMAL) HEMATOLOGY (01/13/2021) Analysis Performed At Patho logist Time Signature Hemoglobin 9.2 (L) 14.0 - [facility] 18.0 g/dL [facility] Hemoglobin x 3 27.6 (L) 42.0 - [facility] 54.0 % [facility] Specimen (Source) Anatomical Collection Method Collection Time Re ceived Time Location / / Volume Laterality 01/13/2021 01/14/2021 12:2 6 PM CDT Narrative [facility] - 01/14/2021 Unless otherwise specified, test(s) performed at: [facility], [address] [place] [id number] FLOOR ASSOCIATE: Alec Payan M.D. For any questions, please call customer service at FREQUENCY:OTHER Resulting Agency Comment Specimen source: Blood Ernie Pompa MD LAB BLOOD ORDERABLES Performing Organization Address City/State/ZIP Code Phon e Number [facility] documented in this encounter Visit Diagnoses Not on filedocumented in this encounter
--- OUTSIDE RECORDS SUMMARY | 2021-10-27 05:43 | XMS_ITS | Encounter Summary ---
:1945 Author Organization [facility] Address [address] [place] [address] Care Team Providers Name Role Phone Unavailable Primary Care Provider Unavailable Encounter Details Date Type Department Care Team Description 03/10/2021 Treatment [facility] O Ernie Gómez MD [address] [place] [address] [place], [place] [phone] (Wo rk) Social History Tobacco Use Types Packs/Day Years Used Date Smoking Tobacco: Unknown Comments: Smoking History Info:Patient n ot screened Sex Assigned at Date Recorded Not on file documented as of this encounter Miscellaneous Notes Dialysis Note - Ernie Pompa MD - 03/10/2021 9:40 AM CST Date: Mar 10, 2021 Patient Name: Shaun Ocampo : 1945 Chart #: [id number] Sex: M This patient was personally seen for a basic visit as part of routine weekly dialysis care. A reviewof the dialysis treatment, blood pressure, estimated dry weight and recent lab values was made. These were discussed with the patient and staff as necessary. Treatment Data for 03/10/2021 started at:7:59 AM Dialyzer: 180NRe Optiflux Na: 138 mEq/L Bicarb: 30 mEq/L Dialysate: 2.0 K, 2.25 Ca, 1.0 Mg, 100 Dextrose (G2231) Dialysate/Machine Temp (prescribed): 37 C Dialysate/Machine Temp (actual): 36.7 C BFR (prescribed): 400 BFR (actual): 400 Prescribed time: 04:00 EDW: 109 kg Access Type: Active (In Use):AVFistula-Standard/Left Upper Arm Pre Dialysis Vitals (for 03/10/2021 7:51 AM ) Pre BP (sit): 135/63 Pre Wt: 115.2 kg Temp: 99.1 F Post Dialysis Vitals (for 03/08/2021 12:11 PM ) Post BP (sit): 119/48 Post Wt: 110.9 kg Current Dialysis Vitals (for 03/10/2021 9:01 AM ) BP (sit): 116/55 AP(-) / GREIGE GOODS MARKER: 171/146 Pulse: 70 Chairside data as of 03/10/2021 9:01 AM Last 3 Treatments 03/08/2021 03/05/2021 03/03/2021 EDW (kg) 109 109 109 Weight Pre (kg) 115.6 114.9 115.8 Weight Post (kg) 110.9 110.7 111.8 Dialytic Weight Loss (kg) -4.7 -4.2 -4 EDW Deviation (kg) 1.9 1.7 2.8 BP Sit Pre 125/59 144/61 115/54 BP Sit Post 119/48 136/53 118/49 UF Rate (mL/kg/hr) 11 9 9 Prescribed BFR 400 400 400 Average Delivered BFR 510 410 410 Prescribed Treatment Time 04:00 04:00 04:00 Actual Treatment Time 04:01 04:28 04:01 Last 3 Values 02/05/2021 01/01/2021 11/20/2020 Access Flow 1384 > 2000 1432 Treatment Medication Orders Medication Sig Start Date End Date Heparin Sodium (Porcine) 1,000 Units/mL Systemic 2000 units IVP Every Treatment 03/27/2020 03/26/2021 Heparin Sodium (Porcine) 1,000 Units/mL Systemic 1000 units IVP Every Treatment 03/27/2020 03/26/2021 Iron Sucrose (Venofer) 50 mg IVP 1X Week 02/15/2021 02/14/2022 Mircera 150 mcg IVP Every 2 weeks 02/10/2021 02/09/2022 Vitamin D (Calcitriol) Oral 0.25 mcg ORAL Every Treatment 03/08/2021 03/07/2022 NATURAL RESOURCE ECONOMIST: Ernie Pompa MD LOCATION: [phone] SCHEDULE: -W-F 2nd Shift ACCESS: EDW: kg. DIALYZER: HD DURATION: NEEDLE SIZE: ANTICOAG: BATH: QB: ml/min QD: ml/min Subjective Tolerating dialysis well. 03/10/21: He has been marching in place and increasing duration to try and gain endurance, feels this is helping. Fluid gains continue to be high, no chance of reaching EDW this week without an extra run and we discussed going to [place] tomorrow for UF only run and he [...] again today, may need extra run at [place] if can't get down over next week. 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 06/10: Doing well overall, no new complaints, [...] Went to Urgent care -> ER in [place] yesterday,CT with R hydro but no obstructive [...] He had infiltration last week, dialyzed at [facility] on Sat and went well, access [...] Exam Respiratory - Clear to auscultation bilaterally. no crackles in bases Cardiovascular Regular rate. Regular rhythm. Edema - [...] and no changes were made. BUN mg/dL 46 (02/17/21) 51 (01/20/21) 44 [...] (01/20/21) 1.6600 (12/23/20) 1.8400 (11/18/20) 1.6800 (10/21/20) HEMOGLOBIN (G/DL) IN BLOOD g/dL 10.2 (03/03/21) 10.2 (02/24/21) 10.4 (02/17/21) 9.8 (02/10/21) 9.3 (02/03/21) PLATELETS 1000/mcL 190 (02/17/21) 186 (01/20/21) 168 (12/23/20) 145 (11/18/20) 180 (10/21/20) IRON SATURATION % 20 (02/17/21) 24 (01/20/21) 25 (12/23/20) 28 (11/18/20) 21 (10/21/20) FERRITIN ng/mL 837 (02/24/21) 925 (01/27/21) 837 (12/23/20) 1317 (09/23/20) 951 (06/24/20) ALBUMIN (G/DL) g/dL 3.7 (02/17/21) 3.8 (01/20/21) 3.5 (12/23/20) Sodium mEq/L 136 (02/17/21) 136 (01/20/21) 136 (12/23/20) POTASSIUM (MMOL/L) IN SER/PLAS mEq/L 4.8 (02/17/21) 5.5 (01/20/21) 4.6 (12/23/20) BICARBONATE (CO2) mEq/L 26 (02/17/21) 22 (01/20/21) 21 (12/23/20) 25 OH VITAMIN D ng/mL 37.9 (09/23/20) 37.9 (03/25/20) 62.4 (09/18/19) BUN/CREATININE (MASS RATIO) IN SER/PLAS 6.5 (02/17/21) 7.6 (01/20/21) 6.7 (12/23/20) Calcium mg/dL 10.7 (03/03/21) 10.4 (02/17/21) 9.9 (01/20/21) Calcium Phos Product 58 (02/17/21) 53 (01/20/21) 38 (12/23/20) CALCIUM (MG/DL) CORRECTED FOR ALBUMIN IN SER/PLAS mg/dL 10.6 (02/17/21) 10.1 (01/20/21) 9.8 (12/23/20) PHOSPHATE (MG/DL) IN SER/PLAS mg/dL 5.6 (02/17/21) 5.4 (01/20/21) 4.0 (12/23/20) IPTH pg/mL 546 (02/17/21) 637 (01/20/21) 493 (12/23/20) Vascular Access Assessment: Type of access: [email or web address]/2019 Surgeon - Lary GARDNER Access working well Impression and Plan Stable dialysis overall Nausea resolved off sensipar, not an option Lower calcitriol with high Ca. Discussed tight phos control importance. Trend labs, may need to consider trial parsabiv pending course Extra UF run tomorrow, needs occasional extra HD/UF run in order to achieve dry weight and avoid pulmonary edema. We have discussed limiting fluid gains at great length. Ernie Pompa MD [ Signed And locked electronically On 03/10/2021 at 09:43:04 AM ] Transcribed: Ernie Pompa ( 03/10/2021 ) documented in this encounter Plan of Treatment Not on filedocumented as of this encounter Visit Diagnoses Not on filedocumented in this encounter
--- OUTSIDE RECORDS SUMMARY | 2021-10-27 05:43 | XMS_ITS | Encounter Summary ---
:1945 Author Organization [facility] Address [address] [place] [address] Care Team Providers Name Role Phone Unavailable Primary Care Provider Unavailable Encounter Details Date Type Department Care Team Description 03/03/2021 Treatment [facility] Ernie Gómez MD [address] [place] [address] [place], [place] [phone] (Wo rk) Social History Tobacco Use Types Packs/Day Years Used Date Smoking Tobacco: Unknown Comments: Smoking History Info:Patient n ot screened Sex Assigned at Date Recorded Not on file documented as of this encounter Miscellaneous Notes Dialysis Note - Ernie Pompa MD - 03/03/2021 9:56 AM CST Date: Mar 03, 2021 Patient Name: Shaun Ocampo : 1945 Chart #: [id number] Sex: M This patient was personally seen for a complete visit as part of routine monthly dialysis care. A review of the dialysis treatment, blood pressure, estimated dry weight and recent lab values was made. These were discussed with the patient and staff as necessary. Treatment Data for 03/03/2021 started at:7:56 AM Dialyzer: 180NRe Optiflux Na: 138 mEq/L Bicarb: 30 mEq/L Dialysate: 2.0 K, 2.25 Ca, 1.0 Mg, 100 Dextrose (G2231) Dialysate/Machine Temp (prescribed): 37 C Dialysate/Machine Temp (actual): 37 C BFR (prescribed): 400 BFR (actual): 400 Prescribed time: 04:00 EDW: 109 kg Access Type: Active (In Use):AVFistula-Standard/Left Upper Arm Pre Dialysis Vitals (for 03/03/2021 7:47 AM ) Pre BP (sit): 115/54 Pre Wt: 115.8 kg Temp: 97.9 F Post Dialysis Vitals (for 03/01/2021 11:59 AM ) Post BP (sit): 130/55 Post Wt: 111.9 kg Current Dialysis Vitals (for 03/03/2021 8:31 AM ) BP (sit): 124/50 AP(-) / TRANSVERSE ABDOMINAL MUSCLE NURSE: 188/160 Pulse: 72 Chairside data as of 03/03/2021 8:31 AM Last 3 Treatments 03/01/2021 02/26/2021 02/24/2021 EDW (kg) 109 109 109 Weight Pre (kg) 116 114.6 114.4 Weight Post (kg) 111.9 111.1 110.5 Dialytic Weight Loss (kg) -4.1 -3.5 -3.9 EDW Deviation (kg) 2.9 2.1 1.5 BP Sit Pre 119/51 136/65 151/73 BP Sit Post 130/55 129/59 112/53 UF Rate (mL/kg/hr) 9 8 9 Prescribed BFR 400 400 400 Average Delivered BFR 410 410 410 Prescribed Treatment Time 04:00 04:00 04:00 Actual Treatment Time 04:01 04:02 04:02 Last 3 Values 02/05/2021 01/01/2021 11/20/2020 Access Flow 1384 > 2000 1432 RESEARCH ENVIRONMENTAL ENGINEER: Ernie Pompa MD LOCATION: [place] [phone] SCHEDULE: -- 2nd Shift EDW: kg. DIALYZER: HD DURATION: NEEDLE SIZE: ANTICOAG: BATH: QB: ml/min QD: ml/min Subjective Tolerating dialysis well. 03/03/21: He feels overall well. Nausea resolved off Sensipar. Ca is above 10 with this change, however. Phos slightly elevated despite binder. He is not taking Ca supplement or Vit D2/3. not taking tums. He is on calcitriol. HE is over dry weight, chronic issue, discussed again today, may need extra run at [place] if can't get down over next week. 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 06/10: Doing well overall, no new complaints, [...] Went to Urgent care -> ER in [place] yesterday,CT with R hydro but no obstructive [...] He had infiltration last week, dialyzed at [facility] on Sat and went well, access [...] intact with needles in place, no aneurysms R great toe at base there was ulceration that is now healed. Medication List Medication Sig Start Date albuterol [...] prescription. Vascular Access Assessment Type of access: [email or web address]/2019 Surgeon - Lary KUMARW Access working well Anemia Assessment HEMOGLOBIN (G/DL) IN BLOOD g/dL 10.2 (02/24/21) 10.4 (02/17/21) 9.8 (02/10/21) 9.3 (02/03/21) 9.8 (01/27/21) PLATELETS 1000/mcL 190 (02/17/21) 186 (01/20/21) 168 [...] Bone and Mineral Metabolism Assessment Calcium mg/dL 10.4 (02/17/21) 9.9 (01/20/21) 9.4 (12/23/20) 9.0 (11/18/20) 9.3 (10/21/20) CALCIUM (MG/DL) CORRECTED FOR ALBUMIN IN SER/PLAS [...] above goal. Intact PTH is at goal. Gas Fitter Apprentice will adjust binders and vitamin D per protocol and continue to provide dietary education. HE has severe nausea and vomiting with Sensipar, can not use anymore IV caclcimimetic would be an option First we will try reducing calcitriol, working on tight phos control. I will discuss increasing binder with RD. Cardiovascular Assessment Blood pressures reviewed and are acceptable. Intradialytic weight gains are too high. Estimated dry weight is appropriate. Discussed fluid restriction multiple times, improved but still high at times. Reaching EDW by end ofweek typically, but may not this week and may need extra run to avoid pulmonary edema Transplant Status: Patient is not a candidate. Weight, co-morbidities, age Resuscitation Status Stable dialysis, no changes to prescription Work on fluid gains, may need extra treatment No sensipar due to side effects, tight phos control and reduce calcitriol planned Ernie Pompa MD [ Signed And locked electronically On 03/03/2021 at 10:00:36 AM ] Transcribed: Ernie Pompa ( 03/03/2021 ) documented in this encounter Plan of Treatment Not on filedocumented as of this encounter Visit Diagnoses Not on filedocumented in this encounter
--- OUTSIDE RECORDS SUMMARY | 2021-10-27 05:43 | XMS_ITS | Encounter Summary ---
:1945 Author Organization [facility] Address [address] [place] [address] Care Team Providers Name Role Phone Unavailable Primary Care Provider Unavailable Encounter Details Date Type Department Care Team Description 10/14/2020 Orders Only [facility] O f Ernie Guzmán MD [address] [place] [address] [place], [place] [phone] (Wo rk) Social History Tobacco Use Types Packs/Day Years Used Date Smoking Tobacco: Unknown Comments: Smoking History Info:Patient n ot screened Sex Assigned at Date Recorded Not on file documented as of this encounter Plan of Treatment Not on filedocumented as of this encounter Procedures Procedure Name Priority Date/Time Associated Diagnosis Comme nts HEMATOLOGY Routine 10/14/2020 Results for thi s procedure are in the resu lts section. documented in this encounter Results (ABNORMAL) HEMATOLOGY (10/14/2020) Analysis Performed At Patho logist Time Signature Hemoglobin 10.6 (L) 14.0 - [facility] 18.0 g/dL [facility] Hemoglobin x 3 31.8 (L) 42.0 - [facility] 54.0 % [facility] Specimen (Source) Anatomical Collection Method Collection Time Re ceived Time Location / / Volume Laterality 10/14/2020 10/15/2020 1:57 PM CDT Narrative [facility] - 10/15/2020 Unless otherwise specified, test(s) performed at: [facility], [address] [place] [id number] SUPERVISOR ACOUSTICAL TILE CARPENTERS: Alec Payan M.D. For any questions, please call customer service at FREQUENCY:OTHER Resulting Agency Comment Specimen source: Blood Ernie Pompa MD LAB BLOOD ORDERABLES Performing Organization Address City/State/ZIP Code Phon e Number [facility] documented in this encounter Visit Diagnoses Not on filedocumented in this encounter
--- OUTSIDE RECORDS SUMMARY | 2021-10-27 05:43 | XMS_ITS | Encounter Summary ---
:1945 Author Organization [facility] Address [address] [place] [address] Care Team Providers Name Role Phone Unavailable Primary Care Provider Unavailable Encounter Details Date Type Department Care Team Description 09/25/2020 Orders Only [facility] O f Ernie Guzmán MD [phone] [place] [address] [place], [place] [phone] (Wo rk) Social History Tobacco Use Types Packs/Day Years Used Date Smoking Tobacco: Unknown Comments: Smoking History Info:Patient n ot screened Sex Assigned at Date Recorded Not on file documented as of this encounter Plan of Treatment Not on filedocumented as of this encounter Procedures Procedure Name Priority Date/Time Associated Diagnosis Comme nts CHEMISTRY Routine 09/25/2020 Results for thi s procedure are in the resu lts section. documented in this encounter Results (ABNORMAL) [facility] Chemistry (09/25/2020) P athologist Signature BUN 52 (H) 6 - 19 [facility] mg/dL [facility] Specimen (Source) Anatomical Collection Method Collection Time Re ceived Time Location / / Volume Laterality 09/25/2020 09/26/2020 1:54 PM CDT Narrative [facility] - 09/26/2020 Unless otherwise specified, test(s) performed at: [facility], [address] [place] [address] MARKETING COORDINATOR: Alec Payan M.D. For any questions, please call customer service at FREQUENCY:OTHER Resulting Agency Comment Specimen source: Serum Ernie Pompa MD LAB BLOOD ORDERABLES Performing Organization Address City/State/ZIP Code Phon e Number [facility] documented in this encounter Visit Diagnoses Not on filedocumented in this encounter
--- OUTSIDE RECORDS SUMMARY | 2021-10-27 05:43 | XMS_ITS | Encounter Summary ---
:1945 Author Organization [facility] Address [address] [place] [address] Care Team Providers Name Role Phone Unavailable Primary Care Provider Unavailable Encounter Details Date Type Department Care Team Description 12/16/2020 Orders Only [facility] f Ernie Guzmán MD [phone] [place] [address] [place], [place] [phone] (Wo rk) Social History Tobacco Use Types Packs/Day Years Used Date Smoking Tobacco: Unknown Comments: Smoking History Info:Patient n ot screened Sex Assigned at Date Recorded Not on file documented as of this encounter Plan of Treatment Not on filedocumented as of this encounter Procedures Procedure Name Priority Date/Time Associated Diagnosis Comme nts HEMATOLOGY Routine 12/16/2020 Results for thi s procedure are in the resu lts section. documented in this encounter Results (ABNORMAL) HEMATOLOGY (12/16/2020) Analysis Performed At Patho logist Time Signature Hemoglobin 9.4 (L) 14.0 - [facility] 18.0 g/dL [facility] Hemoglobin x 3 28.2 (L) 42.0 - [facility] 54.0 % [facility] Specimen (Source) Anatomical Collection Method Collection Time Re ceived Time Location / / Volume Laterality 12/16/2020 12/17/2020 1:42 PM CDT Narrative [facility] - 12/17/2020 Unless otherwise specified, test(s) performed at: [facility], [address] [place] [id number] EDGE TRIMMER MECHANIC: Alec Payan M.D. For any questions, please call customer service at FREQUENCY:OTHER Resulting Agency Comment Specimen source: Blood Ernie Pompa MD LAB BLOOD ORDERABLES Performing Organization Address City/State/ZIP Code Phon e Number [facility] documented in this encounter Visit Diagnoses Not on filedocumented in this encounter
--- OUTSIDE RECORDS SUMMARY | 2021-10-27 05:43 | XMS_ITS | Encounter Summary ---
:1945 Author Organization [facility] Address [address] [place] [address] Care Team Providers Name Role Phone Unavailable Primary Care Provider Unavailable Encounter Details Date Type Department Care Team Description 02/03/2021 Treatment [facility] O Ernie Gómez MD [address] [place] [address] [place], [place] [phone] (Wo rk) Social History Tobacco Use Types Packs/Day Years Used Date Smoking Tobacco: Unknown Comments: Smoking History Info:Patient n ot screened Sex Assigned at Date Recorded Not on file documented as of this encounter Miscellaneous Notes Dialysis Note - Ernie Pompa MD - 02/03/2021 11:33 AM CST Date: Feb 03, 2021 Patient Name: Shaun Ocampo : 1945 Chart #: [id number] Sex: M This patient was personally seen for a basic visit as part of routine weekly dialysis care. A reviewof the dialysis treatment, blood pressure, estimated dry weight and recent lab values was made. These were discussed with the patient and staff as necessary. Treatment Medication Orders Medication Sig Start Date End Date Cinacalcet (Sensipar) 90 mg ORAL 3X Week Post Dialysis,with snack 01/25/2021 01/24/2022 Heparin Sodium (Porcine) 1,000 Units/mL Systemic 1000 units IVP Every Treatment 03/27/2020 03/26/2021 Heparin Sodium (Porcine) 1,000 Units/mL Systemic 2000 units IVP Every Treatment 03/27/2020 03/26/2021 Iron Sucrose (Venofer) 100 mg IVP Every Treatment 02/01/2021 02/10/2021 Mircera 100 mcg IVP Every 2 weeks 01/27/2021 01/26/2022 Vitamin D (Calcitriol) Oral 2.0 mcg ORAL Every Treatment 12/30/2020 12/29/2021 WIRE LOOP MACHINE OPERATOR: Ernie Pompa MD LOCATION: [facility] [phone] SCHEDULE: M-W- 2nd Shift ACCESS: EDW: kg. DIALYZER: HD DURATION: NEEDLE SIZE: ANTICOAG: BATH: QB: ml/min QD: ml/min Subjective Tolerating dialysis well. 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 06/10: Doing well overall, no new complaints, [...] Went to Urgent care -> ER in [place] yesterday,CT with R hydro but no obstructive [...] He had infiltration last week, dialyzed at [facility] on Sat and went well, access [...] and no changes were made. BUN mg/dL 51 (01/20/21) 44 (12/23/20) 51 (11/18/20) 45 (10/21/20) 44 (09/30/20) UREA NITROGEN (MG/DL) IN SER/PLAS - POST DIALYSIS mg/dL 11 (01/20/21) 11 (12/23/20) 11 (11/18/20) 11 (10/21/20) 10 (09/30/20) URR % 78 (01/20/21) 75 (12/23/20) 78 (11/18/20) 76 (10/21/20) 77 (09/30/20) spKt/V Gotch 1.88 (01/20/21) 1.72 (12/23/20) 1.96 (11/18/20) 1.77 (10/21/20) 1.87 (09/30/20) eKdrt/V 1.62 (01/20/21) 1.49 (12/23/20) 1.69 (11/18/20) 1.54 (10/21/20) 1.65 (09/30/20) spKt/V (Daugirdas II) 1.8000 (01/20/21) 1.6600 (12/23/20) 1.8400 (11/18/20) 1.6800 (10/21/20) 1.7900 (09/30/20) HEMOGLOBIN (G/DL) IN BLOOD g/dL 9.8 (01/27/21) 9.6 (01/20/21) 9.2 (01/13/21) 8.7 (01/06/21) 9.0 (12/30/20) PLATELETS 1000/mcL 186 (01/20/21) 168 (12/23/20) 145 (11/18/20) 180 (10/21/20) 180 (09/23/20) IRON SATURATION % 24 (01/20/21) 25 (12/23/20) 28 (11/18/20) 21 (10/21/20) 20 (09/23/20) FERRITIN ng/mL 925 (01/27/21) 837 (12/23/20) 1317 (09/23/20) 951 (06/24/20) 1040 (03/25/20) ALBUMIN (G/DL) g/dL 3.8 (01/20/21) 3.5 (12/23/20) 3.6 (11/18/20) Sodium mEq/L 136 (01/20/21) 136 (12/23/20) 137 (11/18/20) POTASSIUM (MMOL/L) IN SER/PLAS mEq/L 5.5 (01/20/21) 4.6 (12/23/20) 5.3 (11/18/20) BICARBONATE (CO2) mEq/L 22 (01/20/21) 21 (12/23/20) 24 (11/18/20) 25 OH VITAMIN D ng/mL 37.9 (09/23/20) 37.9 (03/25/20) 62.4 (09/18/19) BUN/CREATININE (MASS RATIO) IN SER/PLAS 7.6 (01/20/21) 6.7 (12/23/20) 7.2 (11/18/20) Calcium mg/dL 9.9 (01/20/21) 9.4 (12/23/20) 9.0 (11/18/20) Calcium Phos Product 53 (01/20/21) 38 (12/23/20) 53 (11/18/20) CALCIUM (MG/DL) CORRECTED FOR ALBUMIN IN SER/PLAS mg/dL 10.1 (01/20/21) 9.8 (12/23/20) 9.3 (11/18/20) PHOSPHATE (MG/DL) IN SER/PLAS mg/dL 5.4 (01/20/21) 4.0 (12/23/20) 5.9 (11/18/20) IPTH pg/mL 637 (01/20/21) 493 (12/23/20) 969 (11/18/20) Vascular Access Assessment: Type of access: [email or web address]/2019 Surgeon - Lary GARDNER Access working well Impression and Plan Stable dialysis overall However, with nausea I think this may be from Senspiar. I will have him hold it for 2 weeks and re-assess symptoms. kt/v 1.8, with nausea post-HD and feeling fatigued after, I will try reducing BFR slightly to 400 and see if any difference and monitor adequacy Ernie Pompa MD [ Signed And locked electronically On 02/03/2021 at 11:36:13 AM ] Transcribed: Ernie Pompa ( 02/03/2021 ) documented in this encounter Plan of Treatment Not on filedocumented as of this encounter Visit Diagnoses Not on filedocumented in this encounter
--- OUTSIDE RECORDS SUMMARY | 2021-10-27 05:43 | XMS_ITS | Encounter Summary ---
:1945 Author Organization [facility] Address [address] [place] [address] Care Team Providers Name Role Phone Unavailable Primary Care Provider Unavailable Encounter Details Date Type Department Care Team Description 09/30/2020 Orders Only [facility] O f Ernie Guzmán MD [phone] [place] [address] [place], [place] [phone] (Wo rk) Social History Tobacco Use Types Packs/Day Years Used Date Smoking Tobacco: Unknown Comments: Smoking History Info:Patient n ot screened Sex Assigned at Date Recorded Not on file documented as of this encounter Plan of Treatment Not on filedocumented as of this encounter Procedures Procedure Name Priority Date/Time Associated Diagnosis Comme nts HD KINETICS Routine 09/30/2020 Results for thi s procedure are i n the results section . POST CHEMISTRY Routine 09/30/2020 Results for t his procedure are i n the results section . HEMATOLOGY Routine 09/30/2020 Results for thi s procedure are i n the results section . CHEMISTRY Routine 09/30/2020 Results for thi s procedure are i n the results section . SPECTRA [facility] LAB RESULTS Routine 09/30/2020 Resul ts for this procedure are i n the results section . documented in this encounter Results Spectra [facility] Lab Results (09/30/2020) P athologist Signature eNPCR 0.86 [facility] eKt/V Gotch 1.65 K[facility] spKt/V Gotch 1.87 [facility] spKt/V 1.79 [facility] (Daugirdas II) eKdrt/V 1.65 [facility] PCR 60.68 [facility] nPCR_HD 0.91 [facility] eKt/V 1.58 [facility] ([place]) Specimen (Source) Anatomical Location Collection Method / Collectio n Time Received Time / Laterality Volume 09/30/2020 09/30/2020 Kameron Ordering Provider LAB BLOOD ORDERABLES Performing Organization Address [facility] Code Phon e Number KAMERON (ABNORMAL) HEMATOLOGY (09/30/2020) Analysis Performed At Patho logist Time Signature Hemoglobin 10.3 (L) 14.0 - APS SPECTRA 18.0 g/dL [facility] Hemoglobin x 3 30.9 (L) 42.0 - APS SPECTRA 54.0 % [facility] Specimen (Source) Anatomical Collection Method Collection Time Re ceived Time Location / / Volume Laterality 09/30/2020 10/01/2020 8:36 PM CDT Narrative APS SPECTRA [facility] - 10/02/2020 Unless otherwise specified, test(s) performed at: [facility], [address] [place], [place] [address] CIAIO COUNTER MOLDER: Alec Payan M.D. For any questions, please call customer service at FREQUENCY:OTHER Resulting Agency Comment Specimen source: Blood Ernie Pompa MD LAB BLOOD ORDERABLES Performing Organization Address [facility] Phon e Number APS SPECTRA [facility] HD KINETICS (09/30/2020) P athologist Signature % Urea 77 65 - 80 % APS SPECTRA Reduction [facility] Specimen (Source) Anatomical Collection Method Collection Time Re ceived Time Location / / Volume Laterality 09/30/2020 10/01/2020 5:40 PM CDT Narrative APS SPECTRA [facility] - 10/01/2020 Unless otherwise specified, test(s) performed at: [facility], [address] [place] [address] CIAIO COUNTER MOLDER: Alec Payan M.D. For any questions, please call customer service at FREQUENCY:OTHER Resulting Agency Comment Specimen source: Serum Ernie Pompa MD LAB BLOOD ORDERABLES Performing Organization Address [facility] Phon e Number APS SPECTRA [facility] (ABNORMAL) Spectrae Chemistry (09/30/2020) P athologist Signature BUN 44 (H) 6 - 19 APS SPECTRA mg/dL [facility] Specimen (Source) Anatomical Collection Method Collection Time Re ceived Time Location / / Volume Laterality 09/30/2020 10/01/2020 5:39 PM CDT Narrative APS SPECTRA [facility] - 10/01/2020 Unless otherwise specified, test(s) performed at: [facility], [address] [place] [address] CIAIO COUNTER MOLDER: Alec Payan M.D. For any questions, please call customer service at FREQUENCY:OTHER Resulting Agency Comment Specimen source: Serum Ernie Pompa MD LAB BLOOD ORDERABLES Performing Organization Address City/[facility] [facility] [place] e Number APS SPECTRA [facility] POST CHEMISTRY (09/30/2020) P athologist Signature BUN Post 10 6 - 19 APS SPECTRA Dialysis mg/dL [facility] Specimen (Source) Anatomical Collection Method Collection Time Re ceived Time Location / / Volume Laterality 09/30/2020 10/01/2020 12:4 3 PM CDT Narrative APS SPECTRA [facility] - 10/01/2020 Unless otherwise specified, test(s) performed at: [facility], [address] [place] [address] CIAIO COUNTER MOLDER: Alec Payan M.D. For any questions, please call customer service at FREQUENCY:OTHER Resulting Agency Comment Specimen source: Plasma Ernie Pompa MD LAB BLOOD ORDERABLES Performing Organization Address City/[facility]/[place] [facility] [place] Phon e Number APS SPECTRA [facility] documented in this encounter Visit Diagnoses Not on filedocumented in this encounter
--- OUTSIDE RECORDS SUMMARY | 2021-10-27 05:43 | XMS_ITS | Encounter Summary ---
:1945 Author Organization [facility] Address [address] [place] [address] Care Team Providers Name Role Phone Unavailable Primary Care Provider Unavailable Encounter Details Date Type Department Care Team Description 02/17/2021 Orders Only [facility] O f Ernie Guzmán MD [phone] [place] [address] [place], [place] [phone] (Wo rk) Social History Tobacco Use Types Packs/Day Years Used Date Smoking Tobacco: Unknown Comments: Smoking History Info:Patient n ot screened Sex Assigned at Date Recorded Not on file documented as of this encounter Plan of Treatment Not on filedocumented as of this encounter Procedures Procedure Name Priority Date/Time Associated Diagnosis Comme nts HD KINETICS Routine 02/17/2021 Results for thi s procedure are i n the results section . POST CHEMISTRY Routine 02/17/2021 Results for t his procedure are i n the results section . IMMUNO CHEMISTRY Routine 02/17/2021 Results for this procedure are i n the results section . HEMATOLOGY Routine 02/17/2021 Results for thi s procedure are i n the results section . CHEMISTRY Routine 02/17/2021 Results for thi s procedure are i n the results section . CHEMISTRY Routine 02/17/2021 Results for thi s procedure are i n the results section . SPECTRA K[facility] LAB RESULTS Routine 02/17/2021 Resul ts for this procedure are i n the results section . documented in this encounter Results Spectra K[facility]ON Lab Results (02/17/2021) P athologist Signature eKdrt/V 1.36 [facility] spKt/V Gotch 1.56 K[facility]ON eKt/V Gotch 1.36 [facility] eNPCR 0.81 [facility] eKt/V 1.30 KAMERON ([place]) PCR 57.28 KAM[facility]ON spKt/V 1.49 KAMERON (Daugirdas II) nPCR_HD 0.87 [facility] Specimen (Source) Anatomical Location Collection Method / Collectio n Time Received Time / Laterality Volume 02/17/2021 02/17/2021 Kameron Ordering Provider LAB BLOOD ORDERABLES Performing Organization Address City/State/ZIP Code Phon e Number K[facility] HD KINETICS (02/17/2021) P athologist Signature % Urea 72 65 - 80 % APS SPECTRA Reduction [facility] Specimen (Source) Anatomical Collection Method Collection Time Re ceived Time Location / / Volume Laterality 02/17/2021 02/18/2021 4:14 PM CONCEPT ARTIST Resulting Agency Comment Specimen source: Serum Ernie Pompa MD LAB BLOOD ORDERABLES Performing Organization Address City/[facility]/ZIP Code Phon e Number APS SPECTRA [facility] POST CHEMISTRY (02/17/2021) P athologist Signature BUN Post 13 6 - 19 APS SPECTRA Dialysis mg/dL [facility] Specimen (Source) Anatomical Collection Method Collection Time Re ceived Time Location / / Volume Laterality 02/17/2021 02/18/2021 4:00 PM CONCEPT ARTIST Narrative APS SPECTRA [facility] - 02/19/2021 Unless otherwise specified, test(s) performed at: [facility], [address] [place] [address] COMMERCIAL REVIEW APPRAISER: Alec Payan M.D. For any questions, please call customer service at FREQUENCY:MONTHLY Resulting Agency Comment Specimen source: Plasma Ernie Pompa MD LAB BLOOD ORDERABLES Performing Organization Address City/[facility] Code Phon e Number APS SPECTRA [facility] IMMUNO CHEMISTRY (02/17/2021) P athologist Signature Hep B Surface Negative Negative APS SPECTRA Ag [facility] Specimen (Source) Anatomical Collection Method Collection Time Re ceived Time Location / / Volume Laterality 02/17/2021 02/18/2021 4:08 PM CONCEPT ARTIST Narrative APS SPECTRA [facility] - 02/18/2021 Unless otherwise specified, test(s) performed at: [facility], [address] [place] [address] COMMERCIAL REVIEW APPRAISER: Alec Payan M.D. For any questions, please call customer service at FREQUENCY:MONTHLY Resulting Agency Comment Specimen source: Serum Ernie Pompa MD LAB BLOOD ORDERABLES Performing Organization Address City/State/ZIP Code Phon e Number APS SPECTRA [facility] (ABNORMAL) Spectrae Chemistry (02/17/2021) [facility] Method Time Signature BUN 46 (H) 6 - 19 APS SPECTRA mg/dL [facility] Creatinine 7.07 (H) 0.60 - APS SPECTRA 1.30 mg/dL [facility] BUN/Creatinine 6.5 (L) 10.0 - APS SPECTRA Ratio 20.0 [facility] Sodium 136 136 - 145 APS SPECTRA mEq/L [facility] Potassium 4.8 3.5 - 5.1 APS SPECTRA mEq/L [facility] Chloride 95 (L) 96 - 108 APS SPECTRA mEq/L [facility] Bicarbonate 26 22 - 29 APS SPECTRA (CO2) mEq/L [facility] Calcium 10.4 (H) 8.4 - 10.2 APS SPECTRA mg/dL [facility] Comment: Custom Exception Corrected Calcium 10.6 (H) 8.4 - 10.2 mg/dL APS S PECTRA [facility] Comment: Corrected Calcium is not equivalent to m easured Ionized Calcium. Phosphorus 5.6 (H) 2.6 - 4.5 mg/dL APS SPECTRA K [facility] Calcium Phosphorus Product 58 (H) 0 - 54 APS SPECTRA [facility] Calcium Phosporus Product, Cor 59 (H) 0 - 54 APS SPECTRA [facility] Total Protein 6.8 6.0 - 8.5 g/dL APS SPECTRA [facility] Albumin 3.7 3.5 - 5.2 g/dL APS SPECTRA [facility] Globulin, Total 3.1 2.0 - 4.0 g/dL APS SPECT RA [facility] A/G Ratio 1.2 1.0 - 2.0 APS SPECTRA [facility] Iron 49 45 - 160 mcg/dL APS SPECTRA [place] [facility] UIBC 193 155 - 355 mcg/dL APS SPECTRA K [facility] TIBC 242 185 - 515 mcg/dL APS SPECTRA K [facility] Iron Saturation (TSat) 20 20 - 55 % APS SPE CTRA [facility] Specimen (Source) Anatomical Collection Method Collection Time Re ceived Time Location / / Volume Laterality 02/17/2021 02/18/2021 4:08 PM CONCEPT ARTIST Narrative APS SPECTRA [facility] - 02/18/2021 Unless otherwise specified, test(s) performed at: [facility], [address] [place] [address] COMMERCIAL REVIEW APPRAISER: Alec Payan M.D. For any questions, please call customer service at FREQUENCY:MONTHLY Resulting Agency Comment Specimen source: Serum Ernie Pompa MD LAB BLOOD ORDERABLES Performing Organization Address City/[facility] Code Phon e Number APS SPECTRA [facility] (ABNORMAL) HEMATOLOGY (02/17/2021) Analysis Performed At Patho logist Time Signature WBC 6.99 4.80 - APS SPECTRA 10.80 [facility] 1000/mcL RBC 2.95 (L) 4.70 - APS SPECTRA 6.10 [facility] mill/mcL Hemoglobin 10.4 (L) 14.0 - APS SPECTRA 18.0 g/dL [facility] Hemoglobin x 3 31.2 (L) 42.0 - APS SPECTRA 54.0 % [facility] Hematocrit 31.6 (L) 42.0 - APS SPECTRA 52.0 % [facility] MCV 107 (H) 80 - 100 APS SPECTRA fl [facility] MCH 35.4 (H) 27.0 - APS SPECTRA 31.0 pg [facility] MCHC 33.0 30.0 - APS SPECTRA 36.0 g/dL [facility] RDW 18.4 (H) 11.5 - APS SPECTRA 14.5 % [facility] Platelets 190 130 - 400 APS SPECTRA 1000/mcL [facility] Specimen (Source) Anatomical Collection Method Collection Time Re ceived Time Location / / Volume Laterality 02/17/2021 02/18/2021 9:53 AM CONCEPT ARTIST Narrative APS SPECTRA [facility] - 02/18/2021 Unless otherwise specified, test(s) performed at: [facility], [address] [place] [address] COMMERCIAL REVIEW APPRAISER: Alec Payan M.D. For any questions, please call customer service at FREQUENCY:MONTHLY Resulting Agency Comment Specimen source: Blood Ernie Pompa MD LAB BLOOD ORDERABLES Performing Organization Address City/[facility]/ZIP [facility] [place] Phon e Number APS SPECTRA [facility] (ABNORMAL) Spectrae Chemistry (02/17/2021) P athologist Signature PTH 546 (H) 16 - 80 APS SPECTRA pg/mL [facility] Specimen (Source) Anatomical Collection Method Collection Time Re ceived Time Location / / Volume Laterality 02/17/2021 02/18/2021 10:3 2 AM CONCEPT ARTIST Narrative APS SPECTRA [facility] - 02/18/2021 Unless otherwise specified, test(s) performed at: [facility], [address] [place] [address] COMMERCIAL REVIEW APPRAISER: Alec Payan M.D. For any questions, please call customer service at FREQUENCY:MONTHLY Resulting Agency Comment Specimen source: Plasma Ernie Pompa MD LAB BLOOD ORDERABLES Performing Organization Address City/State/ZIP Code Phon e Number APS SPECTRA [facility] documented in this encounter Visit Diagnoses Not on filedocumented in this encounter
--- OUTSIDE RECORDS SUMMARY | 2021-10-27 05:43 | XMS_ITS | Encounter Summary ---
:1945 Author Organization [facility] Address [address] [place] [address] Care Team Providers Name Role Phone Unavailable Primary Care Provider Unavailable Encounter Details Date Type Department Care Team Description 12/30/2020 Treatment [facility] O Ernie Gómez MD [address] [place] [address] [place], [place] [phone] (Wo rk) Social History Tobacco Use Types Packs/Day Years Used Date Smoking Tobacco: Unknown Comments: Smoking History Info:Patient n ot screened Sex Assigned at Date Recorded Not on file documented as of this encounter Miscellaneous Notes Dialysis Note - Ernie oPmpa MD - 12/30/2020 11:49 AM CDT Date: Dec 30, 2020 Patient Name: Shaun Ocampo : 1945 Chart #: [id number] Sex: M This patient was personally seen for a complete visit as part of routine monthly dialysis care. A review of the dialysis treatment, blood pressure, estimated dry weight and recent lab values was made. These were discussed with the patient and staff as necessary. Treatment Data for 12/30/2020 started at:8:56 AM Dialyzer: 180NRe Optiflux Na: 138 mEq/L Bicarb: 32 mEq/L Dialysate: 2.0 K, 2.25 Ca, 1.0 Mg, 100 Dextrose (G2231) Dialysate/Machine Temp (prescribed): 37 C Dialysate/Machine Temp (actual): 37 C BFR (prescribed): 450 BFR (actual): 450 Prescribed time: 04:00 EDW: 109 kg Access Type: Active (In Use):AVFistula-Standard/Left Upper Arm Pre Dialysis Vitals (for 12/30/2020 8:52 AM ) Pre BP (sit): 147/66 Pre Wt: 113.7 kg Temp: 97.3 F Post Dialysis Vitals (for 12/28/2020 1:05 PM ) Post BP (sit): 120/54 Post Wt: 110.1 kg Current Dialysis Vitals (for 12/30/2020 11:35 AM ) BP (sit): 117/57 AP(-) / NUCLEAR WORKER TECHNICIAN: 240/207 Pulse: 75 Chairside data as of 12/30/2020 11:35 AM Last 3 Treatments 12/28/2020 12/25/2020 12/23/2020 EDW (kg) 109 109 109 Weight Pre (kg) 114.3 112.7 113.2 Weight Post (kg) 110.1 108.8 109 Dialytic Weight Loss (kg) -4.2 -3.9 -4.2 EDW Deviation (kg) 1.1 -0.2 0 BP Sit Pre 138/69 142/65 160/69 BP Sit Post 120/54 123/56 110/55 UF Rate (mL/kg/hr) 10 9 10 Prescribed BFR 450 450 450 Average Delivered BFR 450 450 450 Prescribed Treatment Time 04:00 04:00 04:00 Actual Treatment Time 04:01 04:02 04:00 Last 3 Values 11/20/2020 11/06/2020 09/18/2020 Access Flow 1432 > 2000 1138 Treatment Medication Orders Medication Sig Start Date End Date Cinacalcet (Sensipar) 60 mg ORAL 3X Week Post Dialysis,with snack 05/22/2020 05/21/2021 Heparin Sodium (Porcine) 1,000 Units/mL Systemic 2000 units IVP Every Treatment 03/27/2020 03/26/2021 Heparin Sodium (Porcine) 1,000 Units/mL Systemic 1000 units IVP Every Treatment 03/27/2020 03/26/2021 Iron Sucrose (Venofer) 100 mg IVP Every Treatment 12/28/2020 01/06/2021 Mircera 60 mcg IVP Every 2 weeks 12/30/2020 12/29/2021 Vitamin D (Calcitriol) Oral 2.0 mcg ORAL Every Treatment 12/30/2020 12/29/2021 DOUGH MIXER: Ernie Pompa MD LOCATION: [facility] [phone] SCHEDULE: -- 2nd Shift EDW: kg. DIALYZER: HD DURATION: NEEDLE SIZE: ANTICOAG: BATH: QB: ml/min QD: ml/min Subjective Tolerating dialysis well. 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 06/10: Doing well overall, no new complaints, [...] Went to Urgent care -> ER in [place] yesterday,CT with R hydro but no obstructive [...] He had infiltration last week, dialyzed at [facility] on Sat and went well, access ok [...] base there was ulceration that is now healed Medication List Medication Sig Start Date albuterol [...] made. Treatment and Adequacy Assessment BUN mg/dL 44 (12/23/20) 51 (11/18/20) 45 (10/21/20) 44 (09/30/20) 52 (09/25/20) UREA NITROGEN (MG/DL) IN SER/PLAS - POST DIALYSIS mg/dL 11 (12/23/20) 11 (11/18/20) 11 (10/21/20) 10 (09/30/20) 11 (08/19/20) URR % 75 (12/23/20) 78 (11/18/20) 76 (10/21/20) 77 (09/30/20) 78 (08/19/20) spKt/V Gotch 1.72 (12/23/20) 1.96 (11/18/20) 1.77 (10/21/20) 1.87 (09/30/20) 1.86 (08/19/20) eKdrt/V 1.49 (12/23/20) 1.69 (11/18/20) 1.54 (10/21/20) 1.65 (09/30/20) 1.62 (08/19/20) spKt/V (Daugirdas II) 1.6600 (12/23/20) 1.8400 (11/18/20) 1.6800 (10/21/20) 1.7900 (09/30/20) 1.7800 (08/19/20) Dialysis is adequate. Achieves prescribed time - Yes Achieves prescribed frequency - Yes Continue current prescription. Vascular Access Assessment Type of access: [id number] Surgeon Annita GARDNER Access working well Anemia Assessment HEMOGLOBIN (G/DL) IN BLOOD g/dL 9.1 (12/23/20) 9.4 (12/16/20) 9.5 (12/09/20) 10.4 (12/02/20) 10.1 (11/25/20) PLATELETS 1000/mcL 168 (12/23/20) 145 (11/18/20) 180 (10/21/20) 180 (09/23/20) 147 (08/19/20) IRON SATURATION % 25 (12/23/20) 28 (11/18/20) 21 (10/21/20) 20 (09/23/20) 36 (08/19/20) FERRITIN ng/mL 837 (12/23/20) 1317 (09/23/20) 951 (06/24/20) 1040 (03/25/20) 912 (01/29/20) Hemoglobin is below goal. Iron Saturation is at goal. Ferritin is at goal. Will adjust NATALEE and intravenous iron per protocol. Nutritional and Metabolic Assessment ALBUMIN (G/DL) g/dL 3.5 (12/23/20) 3.6 (11/18/20) 3.9 (10/21/20) 3.7 (09/23/20) 3.9 (08/19/20) Sodium mEq/L 136 (12/23/20) 137 (11/18/20) 135 (10/21/20) 134 (09/23/20) 138 (08/19/20) POTASSIUM (MMOL/L) IN SER/PLAS mEq/L 4.6 (12/23/20) 5.3 (11/18/20) 5.8 (10/21/20) 4.8 (09/23/20) 5.5 (08/19/20) BICARBONATE (CO2) mEq/L 21 (12/23/20) 24 (11/18/20) 23 (10/21/20) 23 (09/23/20) 23 (08/19/20) 25 OH VITAMIN D ng/mL 37.9 (09/23/20) 37.9 (03/25/20) Albumin is below goal. Encourage high-biological value protein intake. Potassium is at goal. Bicarbonate is at goal. Continue same bicarbonate in dialysate. Bone and Mineral Metabolism Assessment Calcium mg/dL 9.4 (12/23/20) 9.0 (11/18/20) 9.3 (10/21/20) 9.0 (09/23/20) 9.5 (08/19/20) CALCIUM (MG/DL) CORRECTED FOR ALBUMIN IN SER/PLAS mg/dL 9.8 (12/23/20) 9.3 (11/18/20) 9.4 (10/21/20) 9.2 (09/23/20) 9.6 (08/19/20) PHOSPHATE (MG/DL) IN SER/PLAS mg/dL 4.0 (12/23/20) 5.9 (11/18/20) 5.8 (10/21/20) 5.5 (09/23/20) 5.1 (08/19/20) CALCIUM PHOSPHORUS PRODUCT, COR 39 (12/23/20) 55 (11/18/20) 55 (10/21/20) 51 (09/23/20) 49 (08/19/20) IPTH pg/mL 493 (12/23/20) 969 (11/18/20) 785 (10/21/20) 835 (09/23/20) 696 (08/19/20) Corrected Calcium is at goal. Phosphorous is at goal. Intact PTH is at goal. Press Shop Supervisor will adjust binders and vitamin D per protocol and continue to provide dietary education. Cardiovascular Assessment Blood pressures reviewed and are acceptable. Intradialytic weight gains are too high. Estimated dry weight is appropriate. Discussed fluid restriction multiple times, improved but still high at times. Transplant Status: Patient is not a candidate. Weight, co-morbidities, age Resuscitation Status Stable dialysis Keep EDW where it is Monitor nausea symptoms, somewhat improved Diabetic foot wound healed, looks excellent Ernie Pompa MD [ Signed And locked electronically On 12/30/2020 at 11:52:33 AM ] Transcribed: Ernie Pompa ( 12/30/2020 ) documented in this encounter Plan of Treatment Not on filedocumented as of this encounter Visit Diagnoses Not on filedocumented in this encounter
--- OUTSIDE RECORDS SUMMARY | 2021-10-27 05:43 | XMS_ITS | Encounter Summary ---
:1945 Author Organization [facility] Address [address] [place] [address] Care Team Providers Name Role Phone Unavailable Primary Care Provider Unavailable Encounter Details Date Type Department Care Team Description 10/28/2020 Orders Only [facility] O f Ernie Guzmán MD [address] [place] [address] [place], [place] [phone] (Wo rk) Social History Tobacco Use Types Packs/Day Years Used Date Smoking Tobacco: Unknown Comments: Smoking History Info:Patient n ot screened Sex Assigned at Date Recorded Not on file documented as of this encounter Plan of Treatment Not on filedocumented as of this encounter Procedures Procedure Name Priority Date/Time Associated Diagnosis Comme nts HEMATOLOGY Routine 10/28/2020 Results for thi s procedure are in the resu lts section. documented in this encounter Results (ABNORMAL) HEMATOLOGY (10/28/2020) Analysis Performed At Patho logist Time Signature Hemoglobin 10.5 (L) 14.0 - APS SPECTRA 18.0 g/dL [facility] Hemoglobin x 3 31.5 (L) 42.0 - APS SPECTRA 54.0 % [facility] Specimen (Source) Anatomical Collection Method Collection Time Re ceived Time Location / / Volume Laterality 10/28/2020 10/29/2020 10:4 3 AM CDT Narrative APS SPECTRA [facility] - 10/29/2020 Unless otherwise specified, test(s) performed at: [facility], [address] [place] [address] PRESS OPERATOR HEAVY DUTY: Alec Payan M.D. For any questions, please call customer service at FREQUENCY:OTHER Resulting Agency Comment Specimen source: Blood Ernie Pompa MD LAB BLOOD ORDERABLES Performing Organization Address City/State/ZIP Code Phon e Number APS SPECTRA [facility] documented in this encounter Visit Diagnoses Not on filedocumented in this encounter
--- OUTSIDE RECORDS SUMMARY | 2021-10-27 05:43 | XMS_ITS | Encounter Summary ---
:1945 Author Organization [facility] Address [address] [place] [address] Care Team Providers Name Role Phone Unavailable Primary Care Provider Unavailable Encounter Details Date Type Department Care Team Description 11/25/2020 Orders Only [facility] O f Ernie Guzmán MD [phone] [place] [address] [place], [place] [phone] (Wo rk) Social History Tobacco Use Types Packs/Day Years Used Date Smoking Tobacco: Unknown Comments: Smoking History Info:Patient n ot screened Sex Assigned at Date Recorded Not on file documented as of this encounter Plan of Treatment Not on filedocumented as of this encounter Procedures Procedure Name Priority Date/Time Associated Diagnosis Comme nts HEMATOLOGY Routine 11/25/2020 Results for thi s procedure are in the resu lts section. documented in this encounter Results (ABNORMAL) HEMATOLOGY (11/25/2020) Analysis Performed At Patho logist Time Signature Hemoglobin 10.1 (L) 14.0 - APS SPECTRA 18.0 g/dL [facility] Hemoglobin x 3 30.3 (L) 42.0 - APS SPECTRA 54.0 % [facility] Specimen (Source) Anatomical Collection Method Collection Time Re ceived Time Location / / Volume Laterality 11/25/2020 11/26/2020 10:5 4 AM CDT Narrative APS SPECTRA [facility] - 11/26/2020 Unless otherwise specified, test(s) performed at: [facility], [address] [place] [address] SUPERINTENDENT POLICE: Alec Payan M.D. For any questions, please call customer service at FREQUENCY:OTHER Resulting Agency Comment Specimen source: Blood Ernie Pompa MD LAB BLOOD ORDERABLES Performing Organization Address City/State/ZIP Code Phon e Number APS SPECTRA [facility] documented in this encounter Visit Diagnoses Not on filedocumented in this encounter
--- OUTSIDE RECORDS SUMMARY | 2021-10-27 05:43 | XMS_ITS | Encounter Summary ---
:1945 Author Organization [facility] Address [address] [place] [address] Care Team Providers Name Role Phone Unavailable Primary Care Provider Unavailable Encounter Details Date Type Department Care Team Description 12/30/2020 Orders Only [facility] O f Ernie Guzmán MD [phone] [place] [address] [place], [place] [phone] (Wo rk) Social History Tobacco Use Types Packs/Day Years Used Date Smoking Tobacco: Unknown Comments: Smoking History Info:Patient n ot screened Sex Assigned at Date Recorded Not on file documented as of this encounter Plan of Treatment Not on filedocumented as of this encounter Procedures Procedure Name Priority Date/Time Associated Diagnosis Comme nts HEMATOLOGY Routine 12/30/2020 Results for thi s procedure are in the resu lts section. documented in this encounter Results (ABNORMAL) HEMATOLOGY (12/30/2020) Analysis Performed At Patho logist Time Signature Hemoglobin 9.0 (L) 14.0 - [facility] 18.0 g/dL [facility] Hemoglobin x 3 27.0 (L) 42.0 - [facility] 54.0 % [facility] Specimen (Source) Anatomical Collection Method Collection Time Re ceived Time Location / / Volume Laterality 12/30/2020 12/31/2020 3:45 PM CDT Narrative [facility] - 12/31/2020 Unless otherwise specified, test(s) performed at: [facility] [address] [place] [address] SUGAR REFINERY SUPERVISOR: Alec Payan M.D. For any questions, please call customer service at FREQUENCY:OTHER Resulting Agency Comment Specimen source: Blood Ernie Pompa MD LAB BLOOD ORDERABLES Performing Organization Address City/State/ZIP Code Phon e Number [facility] documented in this encounter Visit Diagnoses Not on filedocumented in this encounter
--- OUTSIDE RECORDS SUMMARY | 2021-10-27 05:43 | XMS_ITS | Encounter Summary ---
:1945 Author Organization [facility] Address [address] [place] [address] Care Team Providers Name Role Phone Unavailable Primary Care Provider Unavailable Encounter Details Date Type Department Care Team Description 11/11/2020 Orders Only [facility] O f Ernie Guzmán MD [phone] [place] [address] [place], [place] [phone] (Wo rk) Social History Tobacco Use Types Packs/Day Years Used Date Smoking Tobacco: Unknown Comments: Smoking History Info:Patient n ot screened Sex Assigned at Date Recorded Not on file documented as of this encounter Plan of Treatment Not on filedocumented as of this encounter Procedures Procedure Name Priority Date/Time Associated Diagnosis Comme nts HEMATOLOGY Routine 11/11/2020 Results for thi s procedure are in the resu lts section. documented in this encounter Results (ABNORMAL) HEMATOLOGY (11/11/2020) Analysis Performed At Patho logist Time Signature Hemoglobin 10.7 (L) 14.0 - [facility] 18.0 g/dL [facility] Hemoglobin x 3 32.1 (L) 42.0 - [facility] 54.0 % [facility] Specimen (Source) Anatomical Collection Method Collection Time Re ceived Time Location / / Volume Laterality 11/11/2020 11/12/2020 9:26 AM CDT Narrative [facility] - 11/12/2020 Unless otherwise specified, test(s) performed at: [facility], [address] [place] [address] CABLE MAINTAINER: Alec Payan M.D. For any questions, please call customer service at FREQUENCY:OTHER Resulting Agency Comment Specimen source: Blood Ernie Pompa MD LAB BLOOD ORDERABLES Performing Organization Address City/State/ZIP Code Phon e Number [facility] documented in this encounter Visit Diagnoses Not on filedocumented in this encounter
--- OUTSIDE RECORDS SUMMARY | 2021-10-27 05:43 | XMS_ITS | Encounter Summary ---
:1945 Author Organization [facility] Address [address] [place] [address] Care Team Providers Name Role Phone Unavailable Primary Care Provider Unavailable Encounter Details Date Type Department Care Team Description 12/02/2020 Orders Only [facility] O f Ernie Guzmán MD [phone] [place] [address] [place], [place] [phone] (Wo rk) Social History Tobacco Use Types Packs/Day Years Used Date Smoking Tobacco: Unknown Comments: Smoking History Info:Patient n ot screened Sex Assigned at Date Recorded Not on file documented as of this encounter Plan of Treatment Not on filedocumented as of this encounter Procedures Procedure Name Priority Date/Time Associated Diagnosis Comme nts HEMATOLOGY Routine 12/02/2020 Results for thi s procedure are in the resu lts section. documented in this encounter Results (ABNORMAL) HEMATOLOGY (12/02/2020) Analysis Performed At Patho logist Time Signature Hemoglobin 10.4 (L) 14.0 - [facility] 18.0 g/dL [facility] Hemoglobin x 3 31.2 (L) 42.0 - [facility] 54.0 % [facility] Specimen (Source) Anatomical Collection Method Collection Time Re ceived Time Location / / Volume Laterality 12/02/2020 12/03/2020 12:1 0 PM CDT Narrative [facility] - 12/03/2020 Unless otherwise specified, test(s) performed at: [facility], [address] [place] [address] FLANGING MACHINE OPERATOR: Alec Payan M.D. For any questions, please call customer service at FREQUENCY:OTHER Resulting Agency Comment Specimen source: Blood Ernie Pompa MD LAB BLOOD ORDERABLES Performing Organization Address City/State/ZIP Code Phon e Number [facility] documented in this encounter Visit Diagnoses Not on filedocumented in this encounter
--- OUTSIDE RECORDS SUMMARY | 2021-10-27 05:43 | XMS_ITS | Encounter Summary ---
:1945 Author Organization [facility] Address [address] [place] [address] Care Team Providers Name Role Phone Unavailable Primary Care Provider Unavailable Encounter Details Date Type Department Care Team Description 01/27/2021 Orders Only [facility] O f Ernie Guzmán MD [phone] [place] [address] [place], [place] [phone] (Wo rk) Social History Tobacco Use Types Packs/Day Years Used Date Smoking Tobacco: Unknown Comments: Smoking History Info:Patient n ot screened Sex Assigned at Date Recorded Not on file documented as of this encounter Plan of Treatment Not on filedocumented as of this encounter Procedures Procedure Name Priority Date/Time Associated Diagnosis Comme nts HEMATOLOGY Routine 01/27/2021 Results for thi s procedure are in the resu lts section. CHEMISTRY Routine 01/27/2021 Results for thi s procedure are in the resu lts section. documented in this encounter Results (ABNORMAL) HEMATOLOGY (01/27/2021) Analysis Performed At Patho logist Time Signature Hemoglobin 9.8 (L) 14.0 - [facility] 18.0 g/dL [facility] Hemoglobin x 3 29.4 (L) 42.0 - [facility] 54.0 % [facility] Specimen (Source) Anatomical Collection Method Collection Time Re ceived Time Location / / Volume Laterality 01/27/2021 01/28/2021 10:1 8 PM BUFFING WHEEL INSPECTOR Narrative [facility] - 01/29/2021 Unless otherwise specified, test(s) performed at: [facility], [address] [place] [address] RADIO STATION OPERATOR: Alec Payan M.D. For any questions, please call customer service at FREQUENCY:OTHER Resulting Agency Comment Specimen source: Blood Ernie Pompa MD LAB BLOOD ORDERABLES Performing Organization Address City/State/ZIP Code Phon e Number [facility] (ABNORMAL) Spectrae Chemistry (01/27/2021) P athologist Signature Ferritin 925 (H) 22 - 322 [facility] ng/mL [facility] Specimen (Source) Anatomical Collection Method Collection Time Re ceived Time Location / / Volume Laterality 01/27/2021 01/28/2021 10:4 1 PM BUFFING WHEEL INSPECTOR Narrative [facility] - 01/29/2021 Unless otherwise specified, test(s) performed at: [facility], [address] [place] [address] RADIO STATION OPERATOR: Alec Payan M.D. For any questions, please call customer service at FREQUENCY:OTHER Resulting Agency Comment Specimen source: Serum Ernie Pompa MD LAB BLOOD ORDERABLES Performing Organization Address City/State/ZIP Code Phon e Number [facility] documented in this encounter Visit Diagnoses Not on filedocumented in this encounter
--- OUTSIDE RECORDS SUMMARY | 2021-10-27 05:43 | XMS_ITS | Encounter Summary ---
:1945 Author Organization [facility] Address [address] [place] [address] Care Team Providers Name Role Phone Unavailable Primary Care Provider Unavailable Encounter Details Date Type Department Care Team Description 10/21/2020 Orders Only [facility] O f Ernie Guzmán MD [phone] [place] [address] [place], [place] [phone] (Wo rk) Social History Tobacco Use Types Packs/Day Years Used Date Smoking Tobacco: Unknown Comments: Smoking History Info:Patient n ot screened Sex Assigned at Date Recorded Not on file documented as of this encounter Plan of Treatment Not on filedocumented as of this encounter Procedures Procedure Name Priority Date/Time Associated Diagnosis Comme nts HD KINETICS Routine 10/21/2020 Results for thi s procedure are i n the results section . POST CHEMISTRY Routine 10/21/2020 Results for t his procedure are i n the results section . IMMUNO CHEMISTRY Routine 10/21/2020 Results for this procedure are i n the results section . HEMATOLOGY Routine 10/21/2020 Results for thi s procedure are i n the results section . CHEMISTRY Routine 10/21/2020 Results for thi s procedure are i n the results section . CHEMISTRY Routine 10/21/2020 Results for thi s procedure are i n the results section . SPECTRA [facility] LAB RESULTS Routine 10/21/2020 Resul ts for this procedure are i n the results section . documented in this encounter Results Spectra [facility] Lab Results (10/21/2020) P athologist Signature spKt/V Gotch 1.77 [facility] spKt/V 1.68 [facility] (Daugirdas II) eKt/V 1.46 [facility] ([place]) eKdrt/V 1.54 [facility] nPCR_HD 0.90 [facility] eKt/V Gotch 1.54 [facility] eNPCR 0.85 [facility] PCR 59.39 [facility] Specimen (Source) Anatomical Location Collection Method / Collectio n Time Received Time / Laterality Volume 10/21/2020 10/21/2020 [place] Ordering Provider LAB BLOOD ORDERABLES Performing Organization Address City/[facility]/ZIP Code Phon e Number [facility] IMMUNO CHEMISTRY (10/21/2020) athologist Signature Hep B Surface Negative Negative [facility] Ag [facility] Specimen (Source) Anatomical Collection Method Collection Time Re ceived Time Location / / Volume Laterality 10/21/2020 10/22/2020 9:40 PM CDT Narrative [facility] - 10/23/2020 Unless otherwise specified, test(s) performed at: [facility], [address] [place], [place] [id number] NITRO WORKER: Alec Payan M.D. For any questions, please call customer service at FREQUENCY:MONTHLY Resulting Agency Comment Specimen source: Serum Ernie Pompa MD LAB BLOOD ORDERABLES Performing Organization Address [facility] Phon e Number [facility] (ABNORMAL) Spectrae Chemistry (10/21/2020) athologist [facility] PTH 785 (H) 16 - 80 [facility] pg/mL [facility] Specimen (Source) Anatomical Collection Method Collection Time Re ceived Time Location / / Volume Laterality 10/21/2020 10/22/2020 8:05 PM CDT Narrative [facility] - 10/23/2020 Unless otherwise specified, test(s) performed at: [facility], [address] [place] [address] NITRO WORKER: Alec Payan M.D. For any questions, please call customer service at FREQUENCY:MONTHLY Resulting Agency Comment Specimen source: Plasma Ernie Pompa MD LAB BLOOD ORDERABLES Performing Organization Address City/[facility] Phon e Number [facility] HD KINETICS (10/21/2020) athologist Signature % Urea 76 65 - 80 % [facility] Reduction [facility] Specimen (Source) Anatomical Collection Method Collection Time Re ceived Time Location / / Volume Laterality 10/21/2020 10/22/2020 9:40 PM CDT Narrative [facility] - 10/23/2020 Unless otherwise specified, test(s) performed at: [facility], [address] [place] [address] NITRO WORKER: Alec Payan M.D. For any questions, please call customer service at FREQUENCY:MONTHLY Resulting Agency Comment Specimen source: Serum Ernie Pompa MD LAB BLOOD ORDERABLES Performing Organization Address City/State/ZIP Code Phon e Number [facility] (ABNORMAL) Spectrae Chemistry (10/21/2020) [facility] gist Method Time Signature BUN 45 (H) 6 - 19 [facility] mg/dL [facility] Creatinine 6.88 (H) 0.60 - [facility] 1.30 mg/dL [facility] BUN/Creatinine 6.5 (L) 10.0 - [facility] Ratio 20.0 [facility] Sodium 135 (L) 136 - 145 [facility] mEq/L [facility] Potassium 5.8 (H) 3.5 - 5.1 [facility] mEq/L [facility] Chloride 98 96 - 108 [facility] mEq/L [facility] Bicarbonate 23 22 - 29 [facility] (CO2) mEq/L [facility] Calcium 9.3 8.4 - 10.2 [facility] mg/dL [facility] Phosphorus 5.8 (H) 2.6 - 4.5 [facility] mg/dL [facility] Calcium 54 0 - 54 [facility] Phosphorus [facility] Product Total Protein 6.9 6.0 - 8.5 [facility] g/dL [facility] Iron 50 45 - 160 [facility] mcg/dL [facility] UIBC 188 155 - 355 [facility] mcg/dL [facility] TIBC 238 185 - 515 [facility] mcg/dL [facility] Iron Saturation 21 20 - 55 % [facility] (TSat) [facility] Corrected 9.4 8.4 - 10.2 [facility] Calcium mg/dL [facility] Comment: Corrected Calcium is not equivalent to m easured Ionized Calcium. Calcium Phosporus Product, Cor 55 (H) 0 - 54 [facility] Albumin 3.9 3.5 - 5.2 g/dL [facility] Globulin, Total 3.0 2.0 - 4.0 g/dL [facility]PS [facility]PECT RA [facility] A/G Ratio 1.3 1.0 - 2.0 [facility] Specimen (Source) Anatomical Collection Method Collection Time Re ceived Time Location / / Volume Laterality 10/21/2020 10/22/2020 9:40 PM CDT Narrative [facility] - 10/23/2020 Unless otherwise specified, test(s) performed at: [facility], [address] [place] [address] NITRO WORKER: Alec Payan M.D. For any questions, please call customer service at FREQUENCY:MONTHLY Resulting Agency Comment Specimen source: Serum Ernie Pompa MD LAB BLOOD ORDERABLES Performing Organization Address City/State/ZIP Code Phon e Number [facility] (ABNORMAL) HEMATOLOGY (10/21/2020) Analysis Performed At Patho logist Time Signature WBC 7.50 4.80 - [facility] 10.80 [facility] 1000/mcL RBC 3.27 (L) 4.70 - [facility] 6.10 [facility] mill/mcL Hemoglobin 11.3 (L) 14.0 - [facility] 18.0 g/dL [facility] Hemoglobin x 3 33.9 (L) 42.0 - [facility] 54.0 % [facility] Hematocrit 34.5 (L) 42.0 - [facility] 52.0 % [facility] MCV 106 (H) 80 - 100 [facility] fl [facility] MCH 34.7 (H) 27.0 - [facility] 31.0 pg [facility] MCHC 32.9 30.0 - [facility] 36.0 g/dL [facility] RDW 16.2 (H) 11.5 - [facility] 14.5 % [facility] Platelets 180 130 - 400 [facility] 1000/mcL [facility] Specimen (Source) Anatomical Collection Method Collection Time Re ceived Time Location / / Volume Laterality 10/21/2020 10/22/2020 8:03 PM CDT Narrative [facility] - 10/23/2020 Unless otherwise specified, test(s) performed at: [facility], [address] [place] [address] NITRO WORKER: Alec Payan M.D. For any questions, please call customer service at FREQUENCY:MONTHLY Resulting Agency Comment Specimen source: Blood Ernie Pompa MD LAB BLOOD ORDERABLES Performing Organization Address City/State/ZIP Code Phon e Number [facility] POST CHEMISTRY (10/21/2020) P athologist Signature BUN Post 11 6 - 19 APS [facility] Dialysis mg/dL [facility] Specimen (Source) Anatomical Collection Method Collection Time Re ceived Time Location / / Volume Laterality 10/21/2020 10/22/2020 2:54 PM CDT Narrative [facility] - 10/22/2020 Unless otherwise specified, test(s) performed at: [facility], [address] [place] [address] NITRO WORKER: Alec Payan M.D. For any questions, please call customer service at FREQUENCY:MONTHLY Resulting Agency Comment Specimen source: Plasma Ernie Pompa MD LAB BLOOD ORDERABLES Performing Organization Address City/State/[facility] Code Phon e Number [facility] documented in this encounter Visit Diagnoses Not on filedocumented in this encounter
--- OUTSIDE RECORDS SUMMARY | 2021-10-27 05:43 | XMS_ITS | Encounter Summary ---
:1945 Author Organization [facility] Address [address] [place] [address] Care Team Providers Name Role Phone Unavailable Primary Care Provider Unavailable Encounter Details Date Type Department Care Team Description 12/09/2020 Treatment [facility] O f Ernie Guzmán MD [address] [place] [address] [place], [place] [phone] (Wo rk) Social History Tobacco Use Types Packs/Day Years Used Date Smoking Tobacco: Unknown Comments: Smoking History Info:Patient n ot screened Sex Assigned at Date Recorded Not on file documented as of this encounter Miscellaneous Notes Dialysis Note - Ernie Pompa MD - 12/09/2020 10:05 AM CDT Date: Dec 09, 2020 Patient Name: Shaun Ocampo : 1945 Chart #: [id number] Sex: M This patient was personally seen for a basic visit as part of routine weekly dialysis care. A reviewof the dialysis treatment, blood pressure, estimated dry weight and recent lab values was made. These were discussed with the patient and staff as necessary. Treatment Data for 12/09/2020 started at:9:04 AM Dialyzer: 180NRe Optiflux Na: 138 mEq/L Bicarb: 30 mEq/L Dialysate: 2.0 K, 2.25 Ca, 1.0 Mg, 100 Dextrose (G2231) Dialysate/Machine Temp (prescribed): 37 C Dialysate/Machine Temp (actual): 36.9 C BFR (prescribed): 450 BFR (actual): 450 Prescribed time: 04:00 EDW: 109 kg Access Type: Active (In Use):AVFistula-Standard/Left Upper Arm Pre Dialysis Vitals (for 12/09/2020 8:54 AM ) Pre BP (sit): 149/58 Pre Wt: 113.2 kg Temp: 97.6 F Post Dialysis Vitals (for 12/07/2020 1:10 PM ) Post BP (sit): 121/54 Post Wt: 109.5 kg Current Dialysis Vitals (for 12/09/2020 9:45 AM ) BP (sit): 134/63 AP(-) / DATA QUALITY CONSULTANT: 227/186 Pulse: 69 Chairside data as of 12/09/2020 9:45 AM Last 3 Treatments 12/07/2020 12/04/2020 12/02/2020 EDW (kg) 109 109 109 Weight Pre (kg) 113.8 111.6 110.9 Weight Post (kg) 109.5 108.7 108.4 Dialytic Weight Loss (kg) -4.3 -2.9 -2.5 EDW Deviation (kg) 0.5 -0.3 -0.6 BP Sit Pre 128/74 127/52 147/77 BP Sit Post 121/54 107/55 126/56 UF Rate (mL/kg/hr) 10 7 6 Prescribed BFR 450 450 450 Average Delivered BFR 450 450 450 Prescribed Treatment Time 04:00 04:00 04:00 Actual Treatment Time 04:01 04:00 03:57 Last 3 Values 11/20/2020 11/06/2020 09/18/2020 Access Flow 1432 > 2000 1138 MEDICAL BILLING INSTRUCTOR: Ernie Pompa MD LOCATION: [place] [phone] SCHEDULE: -- 2nd Shift ACCESS: EDW: kg. DIALYZER: HD DURATION: NEEDLE SIZE: ANTICOAG: BATH: QB: ml/min QD: ml/min Subjective Tolerating dialysis well. 12/09: When challenged, his BP was low [...] ureteral ?tumor early next month in [place]. 06/10: Doing well overall, no new complaints, [...] Went to Urgent care -> ER in [place] yesterday,CT with R hydro but no obstructive [...] He had infiltration last week, dialyzed at [facility] on Sat and went well, [...] auscultation bilaterally. Cardiovascular Regular rate. Regular rhythm. No murmur heard. Edema - 1+ leg edema. stable Access - AVF intact with needles in place, good t/b and no aneurysms R foot at base of big toe there is ulceration over prior callous but now improved and nearly healed Medication List Medication Sig Start Date [...] no changes were made. BUN mg/dL 51 (11/18/20) 45 (10/21/20) 44 (09/30/20) 52 (09/25/20) 50 (09/23/20) UREA NITROGEN (MG/DL) IN SER/PLAS - POST DIALYSIS mg/dL 11 (11/18/20) 11 (10/21/20) 10 (09/30/20) 11 (08/19/20) 12 (07/22/20) URR % 78 (11/18/20) 76 (10/21/20) 77 (09/30/20) 78 (08/19/20) 79 (07/22/20) spKt/V Gotch 1.96 (11/18/20) 1.77 (10/21/20) 1.87 (09/30/20) 1.86 (08/19/20) 1.97 (07/22/20) eKdrt/V 1.69 (11/18/20) 1.54 (10/21/20) 1.65 (09/30/20) 1.62 (08/19/20) 1.7 (07/22/20) spKt/V (Daugirdas II) 1.8400 (11/18/20) 1.6800 (10/21/20) 1.7900 (09/30/20) 1.7800 (08/19/20) 1.8700 (07/22/20) HEMOGLOBIN (G/DL) IN BLOOD g/dL 10.4 (12/02/20) 10.1 (11/25/20) 10.3 (11/18/20) 10.7 (11/11/20) 10.2 (11/04/20) PLATELETS 1000/mcL 145 (11/18/20) 180 (10/21/20) 180 (09/23/20) 147 (08/19/20) 152 (07/22/20) IRON SATURATION % 28 (11/18/20) 21 (10/21/20) 20 (09/23/20) 36 (08/19/20) 26 (07/22/20) FERRITIN ng/mL 1317 (09/23/20) 951 (06/24/20) 1040 (03/25/20) 912 (01/29/20) 732 (12/25/19) ALBUMIN (G/DL) g/dL 3.6 (11/18/20) 3.9 (10/21/20) 3.7 (09/23/20) Sodium mEq/L 137 (11/18/20) 135 (10/21/20) 134 (09/23/20) POTASSIUM (MMOL/L) IN SER/PLAS mEq/L 5.3 (11/18/20) 5.8 (10/21/20) 4.8 (09/23/20) BICARBONATE (CO2) mEq/L 24 (11/18/20) 23 (10/21/20) 23 (09/23/20) 25 OH VITAMIN D ng/mL 37.9 (09/23/20) 37.9 (03/25/20) 62.4 (09/18/19) BUN/CREATININE (MASS RATIO) IN SER/PLAS 7.2 (11/18/20) 6.5 (10/21/20) 7.7 (09/23/20) Calcium mg/dL 9.0 (11/18/20) 9.3 (10/21/20) 9.0 (09/23/20) Calcium Phos Product 53 (11/18/20) 54 (10/21/20) 50 (09/23/20) CALCIUM (MG/DL) CORRECTED FOR ALBUMIN IN SER/PLAS mg/dL 9.3 (11/18/20) 9.4 (10/21/20) 9.2 (09/23/20) PHOSPHATE (MG/DL) IN SER/PLAS mg/dL 5.9 (11/18/20) 5.8 (10/21/20) 5.5 (09/23/20) IPTH pg/mL 969 (11/18/20) 785 (10/21/20) 835 (09/23/20) Vascular Access Assessment: Type of access: [email or web address] Surgeon - Lary GARDNER Access working well Impression and Plan Continue HD without change in prescription Continue lower fluid gains, has improved Working on getting phos adequately controlled Ernie Pompa MD [ Signed And locked electronically On 12/09/2020 at 10:08:02 AM ] Transcribed: Ernie Pompa ( 12/09/2020 ) documented in this encounter Plan of Treatment Not on filedocumented as of this encounter Visit Diagnoses Not on filedocumented in this encounter
--- OUTSIDE RECORDS SUMMARY | 2021-10-27 05:43 | XMS_ITS | Encounter Summary ---
:1945 Author Organization [facility] Address [address] [place] [address] Care Team Providers Name Role Phone Unavailable Primary Care Provider Unavailable Encounter Details Date Type Department Care Team Description 11/04/2020 Orders Only [facility] O f Ernie Guzmán MD [address] [place] [address] [place], [place] [phone] (Wo rk) Social History Tobacco Use Types Packs/Day Years Used Date Smoking Tobacco: Unknown Comments: Smoking History Info:Patient n ot screened Sex Assigned at Date Recorded Not on file documented as of this encounter Plan of Treatment Not on filedocumented as of this encounter Procedures Procedure Name Priority Date/Time Associated Diagnosis Comme nts HEMATOLOGY Routine 11/04/2020 Results for thi s procedure are in the resu lts section. documented in this encounter Results (ABNORMAL) HEMATOLOGY (11/04/2020) Analysis Performed At Patho logist Time Signature Hemoglobin 10.2 (L) 14.0 - APS SPECTRA 18.0 g/dL [facility] Hemoglobin x 3 30.6 (L) 42.0 - APS [facility]PECTRA 54.0 % [facility] Specimen (Source) Anatomical Collection Method Collection Time Re ceived Time Location / / Volume Laterality 11/04/2020 11/05/2020 11:1 3 AM CDT Narrative APS SPECTRA [facility] - 11/05/2020 Unless otherwise specified, test(s) performed at: [facility], [address] [place] [address] VASCULAR TECHNICIAN: Alec Payan M.D. For any questions, please call customer service at FREQUENCY:OTHER Resulting Agency Comment Specimen source: Blood Ernie Pompa MD LAB BLOOD ORDERABLES Performing Organization Address City/State/ZIP Code Phon e Number [facility]PS [facility]RA [facility] documented in this encounter Visit Diagnoses Not on filedocumented in this encounter
--- OUTSIDE RECORDS SUMMARY | 2021-10-27 05:43 | XMS_ITS | Encounter Summary ---
:1945 Author Organization [facility] Address [address] [place] [address] Care Team Providers Name Role Phone Unavailable Primary Care Provider Unavailable Encounter Details Date Type Department Care Team Description 10/07/2020 Treatment [facility] Ernie Guzmán MD [address] [place] [address] [place], [place] [phone] (Wo rk) Social History Tobacco Use Types Packs/Day Years Used Date Smoking Tobacco: Unknown Comments: Smoking History Info:Patient n ot screened Sex Assigned at Date Recorded Not on file documented as of this encounter Miscellaneous Notes Dialysis Note - Ernie Pompa MD - 10/07/2020 10:59 AM CDT Date: Oct 07, 2020 Patient Name: Shaun Ocampo : 1945 Chart #: [id number] Sex: M This patient was personally seen for a basic visit as part of routine weekly dialysis care. A reviewof the dialysis treatment, blood pressure, estimated dry weight and recent lab values was made. These were discussed with the patient and staff as necessary. Treatment Data for 10/07/2020 started at:9:01 AM Dialyzer: 180NRe Optiflux Na: 138 mEq/L Bicarb: 30 mEq/L Dialysate: 2.0 K, 2.25 Ca, 1.0 Mg, 100 Dextrose (G2231) Dialysate/Machine Temp (prescribed): 37 C Dialysate/Machine Temp (actual): 37 C BFR (prescribed): 450 BFR (actual): 450 Prescribed time: 04:30 EDW: 108 kg Access Type: Active (In Use):AVFistula-Standard/Left Upper Arm Pre Dialysis Vitals (for 10/07/2020 8:52 AM ) Pre BP (sit): 146/68 Pre Wt: 114.4 kg Temp: 97.3 F Post Dialysis Vitals (for 10/05/2020 1:29 PM ) Post BP (sit): 124/58 Post Wt: 110 kg Current Dialysis Vitals (for 10/07/2020 10:35 AM ) BP (sit): 125/63 AP(-) / MACHINE BINDING FOLDER: 232/178 Pulse: 70 Chairside data as of 10/07/2020 10:35 AM Last 3 Treatments 10/05/2020 10/02/2020 09/30/2020 EDW (kg) 108 108 108 Weight Pre (kg) 114 112.8 112.1 Weight Post (kg) 110 107.8 108.2 Dialytic Weight Loss (kg) -4 -5 -3.9 EDW Deviation (kg) 2 -0.2 0.2 BP Sit Pre 129/68 159/90 136/51 BP Sit Post 124/58 106/62 127/54 UF Rate (mL/kg/hr) 8 10 8 Prescribed BFR 450 450 450 Average Delivered BFR 450 450 450 Prescribed Treatment Time 04:30 04:30 04:30 Actual Treatment Time 04:30 04:33 04:35 Last 3 Values 09/18/2020 08/21/2020 07/24/2020 Access Flow 1138 1772 1359 Treatment Medication Orders Medication Sig Start Date End Date Cinacalcet (Sensipar) 60 mg ORAL 3X Week Post Dialysis,with snack 05/22/2020 05/21/2021 Heparin Sodium (Porcine) 1,000 Units/mL Systemic 1000 units IVP Every Treatment 03/27/2020 03/26/2021 Heparin Sodium (Porcine) 1,000 Units/mL Systemic 2000 units IVP Every Treatment 03/27/2020 03/26/2021 Mircera 60 mcg IVP Every 2 weeks During Dialysis 09/30/2020 09/29/2021 THREADING MACHINE FEEDER AUTOMATIC: Ernie Pomap MD LOCATION: [facility] [phone] SCHEDULE: M-W- 2nd Shift ACCESS: EDW: kg. DIALYZER: HD DURATION: NEEDLE SIZE: ANTICOAG: BATH: QB: ml/min QD: ml/min Subjective Tolerating dialysis well. 10/07/20: Added 30 minutes was not effective [...] for ureteral ?tumor early next month in [place]. 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 nl effort Cardiovascular Regular rate. Regular rhythm. Edema - 1+ leg edema. stable Access - AVF intact with needles in place, good t/b and no aneurysms Medication List Medication Sig Start [...] no changes were made. BUN mg/dL 44 (09/30/20) 52 (09/25/20) 50 (09/23/20) 49 (08/19/20) 58 (07/22/20) UREA NITROGEN (MG/DL) IN SER/PLAS - POST DIALYSIS mg/dL 10 (09/30/20) 11 (08/19/20) 12 (07/22/20) 13 (06/24/20) 12 (05/20/20) URR % 77 (09/30/20) 78 (08/19/20) 79 (07/22/20) 78 (06/24/20) 79 (05/20/20) spKt/V Gotch 1.87 (09/30/20) 1.86 (08/19/20) 1.97 (07/22/20) 1.86 (06/24/20) 1.94 (05/20/20) eKdrt/V 1.65 (09/30/20) 1.62 (08/19/20) 1.7 (07/22/20) 1.61 (06/24/20) 1.68 (05/20/20) spKt/V (Daugirdas II) 1.7900 (09/30/20) 1.7800 (08/19/20) 1.8700 (07/22/20) 1.7800 (06/24/20) 1.8400 (05/20/20) HEMOGLOBIN (G/DL) IN BLOOD g/dL 10.3 (09/30/20) 9.8 (09/23/20) 9.6 (09/16/20) 9.8 (09/09/20) 10.0 (09/02/20) PLATELETS 1000/mcL 180 (09/23/20) 147 (08/19/20) 152 (07/22/20) 153 (06/24/20) 196 (05/20/20) IRON SATURATION % 20 (09/23/20) 36 (08/19/20) 26 (07/22/20) 32 (06/24/20) 33 (05/20/20) FERRITIN ng/mL 1317 (09/23/20) 951 (06/24/20) 1040 (03/25/20) 912 (01/29/20) 732 (12/25/19) ALBUMIN (G/DL) g/dL 3.7 (09/23/20) 3.9 (08/19/20) 4.0 (07/22/20) Sodium mEq/L 134 (09/23/20) 138 (08/19/20) 137 (07/22/20) POTASSIUM (MMOL/L) IN SER/PLAS mEq/L 4.8 (09/23/20) 5.5 (08/19/20) 4.2 (07/22/20) BICARBONATE (CO2) mEq/L 23 (09/23/20) 23 (08/19/20) 25 (07/22/20) 25 OH VITAMIN D ng/mL 37.9 (09/23/20) 37.9 (03/25/20) 62.4 (09/18/19) BUN/CREATININE (MASS RATIO) IN SER/PLAS 7.7 (09/23/20) 8.6 (08/19/20) 9.3 (07/22/20) Calcium mg/dL 9.0 (09/23/20) 9.5 (08/19/20) 8.9 (07/22/20) Calcium Phos Product 50 (09/23/20) 48 (08/19/20) 55 (07/22/20) CALCIUM (MG/DL) CORRECTED FOR ALBUMIN IN SER/PLAS mg/dL 9.2 (09/23/20) 9.6 (08/19/20) 8.9 (07/22/20) PHOSPHATE (MG/DL) IN SER/PLAS mg/dL 5.5 (09/23/20) 5.1 (08/19/20) 6.2 (07/22/20) IPTH pg/mL 835 (09/23/20) 696 (08/19/20) 1020 (07/22/20) Vascular Access Assessment: Type of access: [email or web address] Surgeon - Lary KUMARW Access working well Impression and Plan Reduce time back to 4hrs He may need occasional extra UF run to get back to dry weight, but typically can get back to EDW by end of week and he has not required hospitalization for fluid overload. Counseled again on fluid restriction. Will try UF profile 2 No other changes to dialysis at this time Ernie Pompa MD [ Signed And locked electronically On 10/07/2020 at 11:03:31 AM ] Transcribed: Ernie Pompa ( 10/07/2020 ) documented in this encounter Plan of Treatment Not on filedocumented as of this encounter Visit Diagnoses Not on filedocumented in this encounter
--- OUTSIDE RECORDS SUMMARY | 2021-10-27 05:43 | XMS_ITS | Encounter Summary ---
:1945 Author Organization [facility] Address [address] [place] [address] Care Team Providers Name Role Phone Unavailable Primary Care Provider Unavailable Encounter Details Date Type Department Care Team Description 01/20/2021 Orders Only [facility] f Ernie Guzmán MD [phone] [place] [address] [place], [place] [phone] (Wo rk) Social History Tobacco Use Types Packs/Day Years Used Date Smoking Tobacco: Unknown Comments: Smoking History Info:Patient n ot screened Sex Assigned at Date Recorded Not on file documented as of this encounter Plan of Treatment Not on filedocumented as of this encounter Procedures Procedure Name Priority Date/Time Associated Diagnosis Comme nts HD KINETICS Routine 01/20/2021 Results for thi s procedure are i n the results section . POST CHEMISTRY Routine 01/20/2021 Results for t his procedure are i n the results section . IMMUNO CHEMISTRY Routine 01/20/2021 Results for this procedure are i n the results section . HEMATOLOGY Routine 01/20/2021 Results for thi s procedure are i n the results section . CHEMISTRY Routine 01/20/2021 Results for thi s procedure are i n the results section . CHEMISTRY Routine 01/20/2021 Results for thi s procedure are i n the results section . SPECTRA [facility] LAB RESULTS Routine 01/20/2021 Resul ts for this procedure are i n the results section . documented in this encounter Results Spectra [facility] Lab Results (01/20/2021) P athologist Signature eNPCR 0.95 [facility] spKt/V Gotch 1.88 [facility] eKdrt/V 1.62 [facility] PCR 66.84 [facility] nPCR_HD 1.01 [facility] spKt/V 1.80 [facility] (Daugirdas II) eKt/V 1.57 [facility] ([place]) eKt/V Gotch 1.62 [facility] Specimen (Source) Anatomical Location Collection Method / Collectio n Time Received Time / Laterality Volume 01/20/2021 01/20/2021 [facility] Ordering Provider LAB BLOOD ORDERABLES Performing Organization Address City/State/ZIP Code Phon e Number [facility] HD KINETICS (01/20/2021) P athologist Signature % Urea 78 65 - 80 % APS SPECTRA Reduction [facility] Specimen (Source) Anatomical Collection Method Collection Time Re ceived Time Location / / Volume Laterality 01/20/2021 01/21/2021 8:43 PM CDT Narrative APS SPECTRA [facility] - 01/22/2021 Unless otherwise specified, test(s) performed at: [facility], [address] [place] [address] BSA/AML COMPLIANCE OFFICER: Alec Payan M.D. For any questions, please call customer service at FREQUENCY:MONTHLY Resulting Agency Comment Specimen source: Serum Ernie Pompa MD LAB BLOOD ORDERABLES Performing Organization Address City/State/ZIP Code Phon e Number APS SPECTRA [facility] (ABNORMAL) Spectrae Chemistry (01/20/2021) Patholo gist Method Time Signature BUN 51 (H) 6 - 19 APS [facility]PECTRA mg/dL [facility] Creatinine 6.67 (H) 0.60 - APS [facility]RA 1.30 mg/dL [facility] BUN/Creatinine 7.6 (L) 10.0 - APS SPECTRA Ratio 20.0 [facility] Sodium 136 136 - 145 [facility]PS [facility]RA mEq/L [facility] Potassium 5.5 (H) 3.5 - 5.1 APS [facility]PECTRA mEq/L [facility] Chloride 97 96 - 108 APS [facility]RA mEq/L [facility] Bicarbonate 22 22 - 29 APS SPECTRA (CO2) mEq/L [facility] Calcium 9.9 8.4 - 10.2 APS SPECTRA mg/dL [facility] Corrected 10.1 8.4 - 10.2 APS SPECTRA Calcium mg/dL [facility] Comment: Corrected Calcium is not equivalent to m easured Ionized Calcium. Phosphorus 5.4 (H) 2.6 - 4.5 mg/dL APS SPECTRA [facility] Calcium Phosphorus Product 53 0 - 54 APS SPECTRA [facility] Calcium Phosporus Product, Cor 55 (H) 0 - 54 APS SPECTRA [facility] Total Protein 7.1 6.0 - 8.5 g/dL APS SPECTRA [facility] Albumin 3.8 3.5 - 5.2 g/dL APS S[facility]RA [facility] Globulin, Total 3.3 2.0 - 4.0 g/dL APS SPECT RA [facility] A/G Ratio 1.2 1.0 - 2.0 APS SPECTRA [facility] Iron 64 45 - 160 mcg/dL APS SPECTRA [place] [facility] UIBC 208 155 - 355 mcg/dL APS SPECTRA [facility] TIBC 272 185 - 515 mcg/dL APS SPECTRA [facility] Iron Saturation (TSat) 24 20 - 55 % APS SPE CTRA [facility] Specimen (Source) Anatomical Collection Method Collection Time Re ceived Time Location / / Volume Laterality 01/20/2021 01/21/2021 8:41 PM CDT Narrative APS SPECTRA [facility] - 01/22/2021 Unless otherwise specified, test(s) performed at: [facility], [address] [place] [address] BSA/AML COMPLIANCE OFFICER: Alec Payan M.D. For any questions, please call customer service at FREQUENCY:MONTHLY Resulting Agency Comment Specimen source: Serum Ernie Pompa MD LAB BLOOD ORDERABLES Performing Organization Address City/[facility] Phon e Number APS SPECTRA [facility] IMMUNO CHEMISTRY (01/20/2021) P athologist Signature Hep B Surface Negative Negative APS SPECTRA Ag [facility] Specimen (Source) Anatomical Collection Method Collection Time Re ceived Time Location / / Volume Laterality 01/20/2021 01/21/2021 8:41 PM CDT Narrative APS SPECTRA [facility] - 01/21/2021 Unless otherwise specified, test(s) performed at: [facility], [address] [place] [address] BSA/AML COMPLIANCE OFFICER: Alec Payan M.D. For any questions, please call customer service at FREQUENCY:MONTHLY Resulting Agency Comment Specimen source: Serum Ernie Pompa MD LAB BLOOD ORDERABLES Performing Organization Address City/[facility] Phon e Number APS SPECTRA [facility] POST CHEMISTRY (01/20/2021) P athologist Signature BUN Post 11 6 - 19 APS SPECTRA Dialysis mg/dL [facility] Specimen (Source) Anatomical Collection Method Collection Time Re ceived Time Location / / Volume Laterality 01/20/2021 01/21/2021 10:5 1 AM CDT Narrative APS SPECTRA [facility] - 01/21/2021 Unless otherwise specified, test(s) performed at: [facility], [address] [place] [address] BSA/AML COMPLIANCE OFFICER: Alec Payan M.D. For any questions, please call customer service at FREQUENCY:MONTHLY Resulting Agency Comment Specimen source: Plasma Ernie Pompa MD LAB BLOOD ORDERABLES Performing Organization Address City/State/ZIP Code Phon e Number APS SPECTRA [facility] (ABNORMAL) HEMATOLOGY (01/20/2021) Analysis Performed At Patho logist Time Signature WBC 8.32 4.80 - APS SPECTRA 10.80 [facility] 1000/mcL RBC 2.76 (L) 4.70 - APS SPECTRA 6.10 [facility] mill/mcL Hemoglobin 9.6 (L) 14.0 - APS SPECTRA 18.0 g/dL [facility] Hemoglobin x 3 28.8 (L) 42.0 - APS SPECTRA 54.0 % [facility] Hematocrit 29.5 (L) 42.0 - APS SPECTRA 52.0 % [facility] MCV 107 (H) 80 - 100 APS SPECTRA fl [facility] MCH 34.8 (H) 27.0 - APS SPECTRA 31.0 pg [facility] MCHC 32.5 30.0 - APS SPECTRA 36.0 g/dL [facility] RDW 16.5 (H) 11.5 - APS SPECTRA 14.5 % [facility] Platelets 186 130 - 400 APS SPECTRA 1000/mcL [facility] Specimen (Source) Anatomical Collection Method Collection Time Re ceived Time Location / / Volume Laterality 01/20/2021 01/21/2021 9:44 AM CDT Narrative APS SPECTRA [facility] - 01/21/2021 Unless otherwise specified, test(s) performed at: [facility], [address] [place] [address] BSA/AML COMPLIANCE OFFICER: Alec Payan M.D. For any questions, please call customer service at FREQUENCY:MONTHLY Resulting Agency Comment Specimen source: Blood Ernie Pompa MD LAB BLOOD ORDERABLES Performing Organization Address City/State/ZIP Code Phon e Number APS SPECTRA [facility] (ABNORMAL) Spectrae Chemistry (01/20/2021) P athologist Signature PTH 637 (H) 16 - 80 APS SPECTRA pg/mL [facility] Specimen (Source) Anatomical Collection Method Collection Time Re ceived Time Location / / Volume Laterality 01/20/2021 01/21/2021 9:45 AM CDT Narrative APS SPECTRA [facility] - 01/21/2021 Unless otherwise specified, test(s) performed at: [facility], [address] [place] [address] BSA/AML COMPLIANCE OFFICER: Alec Payan M.D. For any questions, please call customer service at FREQUENCY:MONTHLY Resulting Agency Comment Specimen source: Plasma Ernie Pompa MD LAB BLOOD ORDERABLES Performing Organization Address City/State/ZIP Code Phon e Number APS SPECTRA [facility] documented in this encounter Visit Diagnoses Not on filedocumented in this encounter
--- OUTSIDE RECORDS SUMMARY | 2021-10-27 05:43 | XMS_ITS | Encounter Summary ---
:1945 Author Organization [facility] Address [address] [place] [address] Care Team Providers Name Role Phone Unavailable Primary Care Provider Unavailable Encounter Details Date Type Department Care Team Description 02/03/2021 Orders Only [facility] O f Ernie Guzmán MD [address] [place] [address] [place], [place] [phone] (Wo rk) Social History Tobacco Use Types Packs/Day Years Used Date Smoking Tobacco: Unknown Comments: Smoking History Info:Patient n ot screened Sex Assigned at Date Recorded Not on file documented as of this encounter Plan of Treatment Not on filedocumented as of this encounter Procedures Procedure Name Priority Date/Time Associated Diagnosis Comme nts HEMATOLOGY Routine 02/03/2021 Results for thi s procedure are in the resu lts section. 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 For any questions, please call customer service at FREQUENCY:OTHER Resulting Agency Comment Specimen source: Blood Ernie Pompa MD LAB BLOOD ORDERABLES Performing Organization Address City/State/ZIP Code Phon e Number APS SPECTRA [facility] documented in this encounter Visit Diagnoses Not on filedocumented in this encounter
--- OUTSIDE RECORDS SUMMARY | 2021-10-27 05:43 | XMS_ITS | Encounter Summary ---
:1945 Author Organization [facility] Address [address] [place] [address] Care Team Providers Name Role Phone Unavailable Primary Care Provider Unavailable Encounter Details Date Type Department Care Team Description 11/18/2020 Orders Only [facility] O f Ernie Guzmán MD [address] [place] [address] [place], [place] [phone] (Wo rk) Social History Tobacco Use Types Packs/Day Years Used Date Smoking Tobacco: Unknown Comments: Smoking History Info:Patient n ot screened Sex Assigned at Date Recorded Not on file documented as of this encounter Plan of Treatment Not on filedocumented as of this encounter Procedures Procedure Name Priority Date/Time Associated Diagnosis Comme nts HD KINETICS Routine 11/18/2020 Results for thi s procedure are i n the results section . POST CHEMISTRY Routine 11/18/2020 Results for t his procedure are i n the results section . IMMUNO CHEMISTRY Routine 11/18/2020 Results for this procedure are i n the results section . HEMATOLOGY Routine 11/18/2020 Results for thi s procedure are i n the results section . CHEMISTRY Routine 11/18/2020 Results for thi s procedure are i n the results section . CHEMISTRY Routine 11/18/2020 Results for thi s procedure are i n the results section . SPECTRA [facility] LAB RESULTS Routine 11/18/2020 Resul ts for this procedure are i n the results section . documented in this encounter Results Spectra [facility] Lab Results (11/18/2020) P athologist Signature eNPCR 0.99 [facility] eKt/V Gotch 1.69 [facility] PCR 68.99 [facility] eKt/V 1.61 [facility] ([place]) spKt/V 1.84 [facility] (Daugirdas II) eKdrt/V 1.69 [facility] spKt/V Gotch 1.96 [facility] nPCR_HD 1.05 [facility] Specimen (Source) Anatomical Location Collection Method / Collectio n Time Received Time / Laterality Volume 11/18/2020 11/18/2020 [facility] Ordering Provider LAB BLOOD ORDERABLES Performing Organization Address City/State/ZIP Code Phon e Number [facility] HD KINETICS (11/18/2020) P athologist Signature % Urea 78 65 - 80 % APS SPECTRA Reduction [facility] Specimen (Source) Anatomical Collection Method Collection Time Re ceived Time Location / / Volume Laterality 11/18/2020 11/19/2020 6:05 PM CDT Resulting Agency Comment Specimen source: Plasma Ernie Pompa MD LAB BLOOD ORDERABLES Performing Organization Address City/[facility]/ZIP Code Phon e Number APS SPECTRA [facility] POST CHEMISTRY (11/18/2020) athologist Signature BUN Post 11 6 - 19 APS SPECTRA Dialysis mg/dL [facility] Specimen (Source) Anatomical Collection Method Collection Time Re ceived Time Location / / Volume Laterality 11/18/2020 11/19/2020 6:04 PM CDT Narrative APS SPECTRA [facility] - 11/19/2020 Unless otherwise specified, test(s) performed at: [facility], [address] [place] [address] GROUND CREW SUPERVISOR: Alec Payan M.D. For any questions, please call customer service at FREQUENCY:MONTHLY Resulting Agency Comment Specimen source: Plasma Ernie Pompa MD LAB BLOOD ORDERABLES Performing Organization Address City/[facility] Code Phon e Number APS SPECTRA [facility] IMMUNO CHEMISTRY (11/18/2020) P athologist Signature Hep B Surface Negative Negative APS SPECTRA Ag [facility] Specimen (Source) Anatomical Collection Method Collection Time Re ceived Time Location / / Volume Laterality 11/18/2020 11/19/2020 3:22 PM CDT Narrative APS SPECTRA [facility] - 11/19/2020 Unless otherwise specified, test(s) performed at: [facility], [address] [place] [address] GROUND CREW SUPERVISOR: Alec Payan M.D. For any questions, please call customer service at FREQUENCY:MONTHLY Resulting Agency Comment Specimen source: Serum Ernie Pompa MD LAB BLOOD ORDERABLES Performing Organization Address City/State/ZIP Code Phon e Number APS SPECTRA [facility] (ABNORMAL) HEMATOLOGY (11/18/2020) Analysis Performed At Patho logist Time Signature WBC 8.07 4.80 - APS SPECTRA 10.80 [facility] 1000/mcL RBC 2.90 (L) 4.70 - APS SPECTRA 6.10 [facility] mill/mcL Hemoglobin 10.3 (L) 14.0 - APS SPECTRA 18.0 g/dL [facility] Hemoglobin x 3 30.9 (L) 42.0 - APS SPECTRA 54.0 % [facility] Hematocrit 30.5 (L) 42.0 - APS [facility]PECTRA 52.0 % [facility] MCV 105 (H) 80 - 100 APS SPECTRA fl [facility] MCH 35.7 (H) 27.0 - APS [facility]RA 31.0 pg [facility] MCHC 33.8 30.0 - APS [facility]PECTRA 36.0 g/dL [facility] RDW 15.0 (H) 11.5 - APS SPECTRA 14.5 % [facility] Platelets 145 130 - 400 APS SPECTRA 1000/mcL [facility] Specimen (Source) Anatomical Collection Method Collection Time Re ceived Time Location / / Volume Laterality 11/18/2020 11/19/2020 5:47 PM CDT Narrative APS SPECTRA [facility] - 11/19/2020 Unless otherwise specified, test(s) performed at: [facility], [address] [place] [address] GROUND CREW SUPERVISOR: Alec Payan M.D. For any questions, please call customer service at FREQUENCY:MONTHLY Resulting Agency Comment Specimen source: Blood Ernie Pompa MD LAB BLOOD ORDERABLES Performing Organization Address City/State/[facility] Code Phon e Number APS SPECTRA [facility] (ABNORMAL) Spectrae Chemistry (11/18/2020) P athologist Signature PTH 969 (H) 16 - 80 APS SPECTRA pg/mL [facility] Specimen (Source) Anatomical Collection Method Collection Time Re ceived Time Location / / Volume Laterality 11/18/2020 11/19/2020 5:01 PM CDT Narrative APS SPECTRA [facility] - 11/19/2020 Unless otherwise specified, test(s) performed at: [facility], [address] [place] [address] GROUND CREW SUPERVISOR: Alec Payan M.D. For any questions, please call customer service at FREQUENCY:MONTHLY Resulting Agency Comment Specimen source: Plasma Ernie Pompa MD LAB BLOOD ORDERABLES Performing Organization Address City/State/ZIP Code Phon e Number APS SPECTRA [facility] (ABNORMAL) Spectrae Chemistry (11/18/2020) Frankly Chat gist Method Time Signature BUN 51 (H) 6 - 19 APS SPECTRA mg/dL [facility] Creatinine 7.12 (H) 0.60 - APS SPECTRA 1.30 mg/dL [facility] BUN/Creatinine 7.2 (L) 10.0 - APS SPECTRA Ratio 20.0 [facility] Sodium 137 136 - 145 APS SPECTRA mEq/L [facility] Potassium 5.3 (H) 3.5 - 5.1 APS [facility]PECTRA mEq/L [facility] Chloride 96 96 - 108 APS SPECTRA mEq/L [facility] Bicarbonate 24 22 - 29 APS SPECTRA (CO2) mEq/L [facility] Calcium 9.0 8.4 - 10.2 APS SPECTRA mg/dL [facility] Corrected 9.3 8.4 - 10.2 APS SPECTRA Calcium mg/dL [facility] Comment: Corrected Calcium is not equivalent to m easured Ionized Calcium. Phosphorus 5.9 (H) 2.6 - 4.5 mg/dL APS SPECTRA [...] 1.0 - 2.0 APS SPECTRA [facility] Iron 65 45 - 160 mcg/dL APS SPECTRA [place] MMN UIBC 166 155 - 355 mcg/dL APS SPECTRA K [facility] TIBC 231 185 - 515 mcg/dL APS SPECTRA K [facility] Iron Saturation (TSat) 28 20 - 55 % APS SPE CTRA [facility] Specimen (Source) Anatomical Collection Method Collection Time Re ceived Time Location / / Volume Laterality 11/18/2020 11/19/2020 3:22 PM CDT Narrative APS SPECTRA [facility] - 11/19/2020 Unless otherwise specified, test(s) performed at: [facility], [address] [place] [address] GROUND CREW SUPERVISOR: Alec Payan M.D. For any questions, please call customer service at FREQUENCY:MONTHLY Resulting Agency Comment Specimen source: Serum Ernie Pompa MD LAB BLOOD ORDERABLES Performing Organization Address City/State/ZIP Code Phon e Number APS SPECTRA [facility] documented in this encounter Visit Diagnoses Not on filedocumented in this encounter
--- OUTSIDE RECORDS SUMMARY | 2021-10-27 05:43 | XMS_ITS | Encounter Summary ---
:1945 Author Organization [facility] Address [address] [place] [address] Care Team Providers Name Role Phone Unavailable Primary Care Provider Unavailable Encounter Details Date Type Department Care Team Description 12/23/2020 Orders Only [facility] O f Ernie Guzmán MD [address] [place] [address] [place], [place] [phone] (Wo rk) Social History Tobacco Use Types Packs/Day Years Used Date Smoking Tobacco: Unknown Comments: Smoking History Info:Patient n ot screened Sex Assigned at Date Recorded Not on file documented as of this encounter Plan of Treatment Not on filedocumented as of this encounter Procedures Procedure Name Priority Date/Time Associated Diagnosis Comme nts HD KINETICS Routine 12/23/2020 Results for thi s procedure are i n the results section . POST CHEMISTRY Routine 12/23/2020 Results for t his procedure are i n the results section . IMMUNO CHEMISTRY Routine 12/23/2020 Results for this procedure are i n the results section . HEMATOLOGY Routine 12/23/2020 Results for thi s procedure are i n the results section . CHEMISTRY Routine 12/23/2020 Results for thi s procedure are i n the results section . CHEMISTRY Routine 12/23/2020 Results for thi s procedure are i n the results section . SPECTRA [facility] LAB RESULTS Routine 12/23/2020 Resul ts for this procedure are i n the results section . documented in this encounter Results Spectra K[facility] Lab Results (12/23/2020) P athologist Signature spKt/V 1.66 KAMERON (Daugirdas II) eKt/V 1.44 [facility]ON ([place]) nPCR_HD 0.92 [facility] spKt/V Gotch 1.72 KMA[facility] eNPCR 0.82 [facility] PCR 60.88 [facility] eKt/V Gotch 1.49 [facility] eKdrt/V 1.49 [facility] Specimen (Source) Anatomical Location Collection Method / Collectio n Time Received Time / Laterality Volume 12/23/2020 12/23/2020 K[facility]on Ordering Provider LAB BLOOD ORDERABLES Performing Organization Address City/[facility]/ZIP Code Phon e Number KAMERON HD KINETICS (12/23/2020) P athologist Signature % Urea 75 65 - 80 % APS SPECTRA Reduction [facility] Specimen (Source) Anatomical Collection Method Collection Time Re ceived Time Location / / Volume Laterality 12/23/2020 12/24/2020 8:52 PM CDT Narrative APS SPECTRA [facility] - 12/25/2020 Unless otherwise specified, test(s) performed at: [facility], [address] [place], [place] [id number] DEPLOYMENT SPECIALIST: Alec Payan M.D. For any questions, please call customer service at FREQUENCY:MONTHLY Resulting Agency Comment Specimen source: Serum Ernie Pompa MD LAB BLOOD ORDERABLES Performing Organization Address [facility] Phon e Number APS SPECTRA [facility] IMMUNO CHEMISTRY (12/23/2020) P athologist Signature Hep B Surface Negative Negative APS SPECTRA Ag [facility] Specimen (Source) Anatomical Collection Method Collection Time Re ceived Time Location / / Volume Laterality 12/23/2020 12/24/2020 8:51 PM CDT Narrative APS SPECTRA [facility] - 12/25/2020 Unless otherwise specified, test(s) performed at: [facility], [address] [place] [address] DEPLOYMENT SPECIALIST: Alec Payan M.D. For any questions, please call customer service at FREQUENCY:MONTHLY Resulting Agency Comment Specimen source: Serum Ernie Pompa MD LAB BLOOD ORDERABLES Performing Organization Address City/[facility] Code Phon e Number APS SPECTRA [facility] (ABNORMAL) Spectrae Chemistry (12/23/2020) Patholo gist Method Time Signature Ferritin 837 (H) 22 - 322 APS SPECTRA ng/mL [facility] BUN 44 (H) 6 - 19 APS SPECTRA mg/dL [facility] Creatinine 6.57 (H) 0.60 - APS SPECTRA 1.30 mg/dL [facility] BUN/Creatinine 6.7 (L) 10.0 - APS SPECTRA Ratio 20.0 [facility] Sodium 136 136 - 145 APS SPECTRA mEq/L [facility] Potassium 4.6 3.5 - 5.1 APS SPECTRA mEq/L [facility] Chloride 101 96 - 108 APS SPECTRA mEq/L [facility] Bicarbonate 21 (L) 22 - 29 APS SPECTRA (CO2) mEq/L [facility] Calcium 9.4 8.4 - 10.2 APS SPECTRA mg/dL [facility] Corrected 9.8 8.4 - 10.2 APS SPECTRA Calcium mg/dL [facility] Comment: Corrected Calcium is not equivalent to m easured Ionized Calcium. Phosphorus 4.0 2.6 - 4.5 mg/dL APS SPECTRA K [facility] Calcium Phosphorus Product 38 0 - 54 APS SPECTRA [facility] Calcium Phosporus Product, Cor 39 0 - 54 APS SPECTRA [facility] Alkaline Phosphatase 137 (H) 40 - 129 U/L APS SP ECTRA [facility] Total Protein 6.6 6.0 - 8.5 g/dL APS SPECTRA [facility] Albumin 3.5 3.5 - 5.2 g/dL APS SPECTRA [facility] Globulin, Total 3.1 2.0 - 4.0 g/dL APS SPECT RA [facility] A/G Ratio 1.1 1.0 - 2.0 APS SPECTRA [facility] Magnesium 2.2 1.6 - 2.6 mg/dL APS SPECTRA [facility] Iron 56 45 - 160 mcg/dL APS SPECTRA [facility] UIBC 167 155 - 355 mcg/dL APS SPECTRA K [facility] TIBC 223 185 - 515 mcg/dL APS SPECTRA K [facility] Iron Saturation (TSat) 25 20 - 55 % APS SPE CTRA [facility] Specimen (Source) Anatomical Collection Method Collection Time Re ceived Time Location / / Volume Laterality 12/23/2020 12/24/2020 8:51 PM CDT Narrative APS SPECTRA [facility] - 12/25/2020 Unless otherwise specified, test(s) performed at: [facility], [address] [place] [address] DEPLOYMENT SPECIALIST: Alec Payan M.D. For any questions, please call customer service at FREQUENCY:MONTHLY Resulting Agency Comment Specimen source: Serum Ernie Pompa MD LAB BLOOD ORDERABLES Performing Organization Address City/State/ZIP Code Phon e Number APS SPECTRA [facility] (ABNORMAL) Spectrae Chemistry (12/23/2020) P athologist Signature PTH 493 (H) 16 - 80 APS SPECTRA pg/mL [facility] Specimen (Source) Anatomical Collection Method Collection Time Re ceived Time Location / / Volume Laterality 12/23/2020 12/24/2020 3:19 PM CDT Narrative APS SPECTRA [facility] - 12/25/2020 Unless otherwise specified, test(s) performed at: [facility], [address] [place] [address] DEPLOYMENT SPECIALIST: Alec Payan M.D. For any questions, please call customer service at FREQUENCY:MONTHLY Resulting Agency Comment Specimen source: Plasma Ernie Pompa MD LAB BLOOD ORDERABLES Performing Organization Address City/[facility] Phon e Number APS SPECTRA [facility] POST CHEMISTRY (12/23/2020) P athologist Signature BUN Post 11 6 - 19 APS SPECTRA Dialysis mg/dL [facility] Specimen (Source) Anatomical Collection Method Collection Time Re ceived Time Location / / Volume Laterality 12/23/2020 12/24/2020 3:54 PM CDT Narrative APS SPECTRA [facility] - 12/24/2020 Unless otherwise specified, test(s) performed at: [facility], [address] [place] [address] DEPLOYMENT SPECIALIST: Alec Payan M.D. For any questions, please call customer service at FREQUENCY:MONTHLY Resulting Agency Comment Specimen source: Plasma Ernie Pompa MD LAB BLOOD ORDERABLES Performing Organization Address City/[facility]/ZIP Code Phon e Number APS SPECTRA [facility] (ABNORMAL) HEMATOLOGY (12/23/2020) Analysis Performed At Patho logist Time Signature WBC 7.75 4.80 - APS SPECTRA 10.80 [facility] 1000/mcL RBC 2.61 (L) 4.70 - APS SPECTRA 6.10 [facility] mill/mcL Hemoglobin 9.1 (L) 14.0 - APS SPECTRA 18.0 g/dL [facility] Hemoglobin x 3 27.3 (L) 42.0 - APS SPECTRA 54.0 % [facility] Hematocrit 27.5 (L) 42.0 - APS SPECTRA 52.0 % [facility] MCV 106 (H) 80 - 100 APS SPECTRA fl [facility] MCH 35.0 (H) 27.0 - APS SPECTRA 31.0 pg [facility] MCHC 33.2 30.0 - APS SPECTRA 36.0 g/dL [facility] RDW 16.5 (H) 11.5 - APS SPECTRA 14.5 % [facility] Platelets 168 130 - 400 APS SPECTRA 1000/mcL [facility] Specimen (Source) Anatomical Collection Method Collection Time Re ceived Time Location / / Volume Laterality 12/23/2020 12/24/2020 5:26 PM CDT Narrative APS SPECTRA [facility] - 12/24/2020 Unless otherwise specified, test(s) performed at: [facility], [address] [place] [address] DEPLOYMENT SPECIALIST: Alec Payan M.D. For any questions, please call customer service at FREQUENCY:MONTHLY Resulting Agency Comment Specimen source: Blood Ernie Pompa MD LAB BLOOD ORDERABLES Performing Organization Address City/State/ZIP Code Phon e Number APS SPECTRA [facility] documented in this encounter Visit Diagnoses Not on filedocumented in this encounter
--- OUTSIDE RECORDS SUMMARY | 2021-10-27 05:43 | XMS_ITS | Encounter Summary ---
:1945 Author Organization [facility] Address [address] [place] [address] Care Team Providers Name Role Phone Unavailable Primary Care Provider Unavailable Encounter Details Date Type Department Care Team Description 01/06/2021 Orders Only [facility] O f Ernie Guzmán MD [address] [place] [address] [place], [place] [phone] (Wo rk) Social History Tobacco Use Types Packs/Day Years Used Date Smoking Tobacco: Unknown Comments: Smoking History Info:Patient n ot screened Sex Assigned at Date Recorded Not on file documented as of this encounter Plan of Treatment Not on filedocumented as of this encounter Procedures Procedure Name Priority Date/Time Associated Diagnosis Comme nts HEMATOLOGY Routine 01/06/2021 Results for thi s procedure are in the resu lts section. documented in this encounter Results (ABNORMAL) HEMATOLOGY (01/06/2021) Analysis Performed At Patho logist Time Signature Hemoglobin 8.7 (L) 14.0 - APS SPECTRA 18.0 g/dL [facility] Hemoglobin x 3 26.1 (L) 42.0 - APS SPECTRA 54.0 % [facility] Specimen (Source) Anatomical Collection Method Collection Time Re ceived Time Location / / Volume Laterality 01/06/2021 01/07/2021 9:04 AM CDT Narrative APS SPECTRA [facility] - 01/07/2021 Unless otherwise specified, test(s) performed at: [facility], [address] [place] [address] CREPE SOLE WIRE BRUSHER: Alec Payan M.D. For any questions, please call customer service at FREQUENCY:OTHER Resulting Agency Comment Specimen source: Blood Ernie Pompa MD LAB BLOOD ORDERABLES Performing Organization Address City/State/ZIP Code Phon e Number APS SPECTRA [facility] documented in this encounter Visit Diagnoses Not on filedocumented in this encounter
--- OUTSIDE RECORDS SUMMARY | 2021-10-27 05:43 | XMS_ITS | Encounter Summary ---
:1945 Author Organization [facility] Address [address] [place] [address] Care Team Providers Name Role Phone Unavailable Primary Care Provider Unavailable Encounter Details Date Type Department Care Team Description 11/18/2020 Treatment [facility] O Ernie Gómez MD [address] [place] [address] [place], [place] [phone] (Wo rk) Social History Tobacco Use Types Packs/Day Years Used Date Smoking Tobacco: Unknown Comments: Smoking History Info:Patient n ot screened Sex Assigned at Date Recorded Not on file documented as of this encounter Miscellaneous Notes Dialysis Note - Ernie Pompa MD - 11/18/2020 9:48 AM CDT Date: Nov 18, 2020 Patient Name: Shaun Ocampo : 1945 Chart #: [id number] Sex: M This patient was personally seen [...] units IVP Every Treatment 03/27/2020 03/26/2021 Mircera 75 mcg IVP Every 4 weeks 11/18/2020 11/17/2021 Vitamin D (Calcitriol) Oral 1.5 mcg ORAL Every Treatment 11/02/2020 11/01/2021 NURSE TECHNICIAN: Ernie Pompa MD LOCATION: [phone] SCHEDULE: -- 2nd Shift EDW: kg. DIALYZER: HD DURATION: NEEDLE SIZE: ANTICOAG: BATH: QB: ml/min QD: ml/min Subjective Tolerating dialysis well. 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 06/10: Doing well overall, no new complaints, [...] Went to Urgent care -> ER in [place] yesterday,CT with R hydro but no obstructive [...] He had infiltration last week, dialyzed at [facility] on Sat and went well, access [...] AVF working well, advancing needles next time. 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 Treatment and Adequacy Assessment BUN mg/dL 45 (10/21/20) 44 (09/30/20) 52 (09/25/20) 50 (09/23/20) 49 (08/19/20) UREA NITROGEN (MG/DL) IN SER/PLAS - POST DIALYSIS mg/dL 11 (10/21/20) 10 (09/30/20) 11 (08/19/20) 12 (07/22/20) 13 (06/24/20) URR % 76 (10/21/20) 77 (09/30/20) 78 (08/19/20) 79 (07/22/20) 78 (06/24/20) spKt/V Gotch 1.77 (10/21/20) 1.87 (09/30/20) 1.86 (08/19/20) 1.97 (07/22/20) 1.86 (06/24/20) eKdrt/V 1.54 (10/21/20) 1.65 (09/30/20) 1.62 (08/19/20) 1.7 (07/22/20) 1.61 (06/24/20) spKt/V (Daugirdas II) 1.6800 (10/21/20) 1.7900 (09/30/20) 1.7800 (08/19/20) 1.8700 (07/22/20) 1.7800 (06/24/20) Dialysis is adequate. Achieves prescribed time - Yes Achieves prescribed frequency - Yes Continue current prescription. Vascular Access Assessment Type of access: [id number] Surgeon Annita KUMARW Access working well Anemia Assessment HEMOGLOBIN (G/DL) IN BLOOD g/dL 10.7 (11/11/20) 10.2 (11/04/20) 10.5 (10/28/20) 11.3 (10/21/20) 10.6 (10/14/20) PLATELETS 1000/mcL 180 (10/21/20) 180 (09/23/20) 147 (08/19/20) 152 (07/22/20) 153 (06/24/20) IRON SATURATION % 21 (10/21/20) 20 (09/23/20) 36 (08/19/20) 26 (07/22/20) 32 (06/24/20) FERRITIN ng/mL 1317 (09/23/20) 951 (06/24/20) 1040 (03/25/20) 912 (01/29/20) 732 (12/25/19) Hemoglobin is at goal. Iron Saturation is below goal. Ferritin is at goal. Will adjust NATALEE and intravenous iron per protocol. Nutritional and Metabolic Assessment ALBUMIN (G/DL) g/dL 3.9 (10/21/20) 3.7 (09/23/20) 3.9 (08/19/20) 4.0 (07/22/20) 3.8 (06/24/20) Sodium mEq/L 135 (10/21/20) 134 (09/23/20) 138 (08/19/20) 137 (07/22/20) 137 (06/24/20) POTASSIUM (MMOL/L) IN SER/PLAS mEq/L 5.8 (10/21/20) 4.8 (09/23/20) 5.5 (08/19/20) 4.2 (07/22/20) 4.5 (06/24/20) BICARBONATE (CO2) mEq/L 23 (10/21/20) 23 (09/23/20) 23 (08/19/20) 25 (07/22/20) 24 (06/24/20) 25 OH VITAMIN D ng/mL 37.9 (09/23/20) 37.9 (03/25/20) Albumin is below goal. Encourage high-biological value protein intake. Potassium is at goal. Bicarbonate is at goal. Continue same bicarbonate in dialysate. Bone and Mineral Metabolism Assessment Calcium mg/dL 9.3 (10/21/20) 9.0 (09/23/20) 9.5 (08/19/20) 8.9 (07/22/20) 8.8 (06/24/20) CALCIUM (MG/DL) CORRECTED FOR ALBUMIN IN SER/PLAS mg/dL 9.4 (10/21/20) 9.2 (09/23/20) 9.6 (08/19/20) 8.9 (07/22/20) 9.0 (06/24/20) PHOSPHATE (MG/DL) IN SER/PLAS mg/dL 5.8 (10/21/20) 5.5 (09/23/20) 5.1 (08/19/20) 6.2 (07/22/20) 5.5 (06/24/20) CALCIUM PHOSPHORUS PRODUCT, COR 55 (10/21/20) 51 (09/23/20) 49 (08/19/20) 55 (07/22/20) 50 (06/24/20) IPTH pg/mL 785 (10/21/20) 835 (09/23/20) 696 (08/19/20) 1020 (07/22/20) 807 (06/24/20) Corrected Calcium is at goal. Phosphorous is above goal. Intact PTH is above goal. Automotive Electrician Helper will adjust binders and vitamin D per protocol and continue to provide dietary education. Cardiovascular Assessment Blood pressures reviewed and are acceptable. Intradialytic weight gains are too high. Estimated dry weight is appropriate. Discussed fluid restriction multiple times but unable to make progress in high fluid gains. May needoccasional extra treatment to get to dry weight and avoid hospitalization Transplant Status: Patient is not a candidate. 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 Ca, phos, and PTH today Nephrolithiasis with uric acid stone and hyperuricemia - no sx of stone, no current hematuria, continue allopurinol Ernie Pompa MD [ Signed And locked electronically On 11/18/2020 at 09:53:59 AM ] Transcribed: Ernie Pompa ( 11/18/2020 ) documented in this encounter Plan of Treatment Not on filedocumented as of this encounter Visit Diagnoses Not on filedocumented in this encounter
--- OUTSIDE RECORDS SUMMARY | 2021-10-27 05:43 | XMS_ITS | Encounter Summary ---
:1945 Author Organization [facility] Address [address] [place] [address] Care Team Providers Name Role Phone Unavailable Primary Care Provider Unavailable Encounter Details Date Type Department Care Team Description 10/07/2020 Orders Only [facility] O f Ernie Guzmán MD [address] [place] [address] [place], [place] [phone] (Wo rk) Social History Tobacco Use Types Packs/Day Years Used Date Smoking Tobacco: Unknown Comments: Smoking History Info:Patient n ot screened Sex Assigned at Date Recorded Not on file documented as of this encounter Plan of Treatment Not on filedocumented as of this encounter Procedures Procedure Name Priority Date/Time Associated Diagnosis Comme nts HEMATOLOGY Routine 10/07/2020 Results for thi s procedure are in the resu lts section. documented in this encounter Results (ABNORMAL) HEMATOLOGY (10/07/2020) Analysis Performed At Patho logist Time Signature Hemoglobin 10.4 (L) 14.0 - APS SPECTRA 18.0 g/dL [facility] Hemoglobin x 3 31.2 (L) 42.0 - APS SPECTRA 54.0 % [facility] Specimen (Source) Anatomical Collection Method Collection Time Re ceived Time Location / / Volume Laterality 10/07/2020 10/08/2020 5:47 PM CDT Narrative APS SPECTRA [facility] - 10/09/2020 Unless otherwise specified, test(s) performed at: [facility], [address] [place] [address] OCULAR CARE TECHNICIAN: Alec Payan M.D. For any questions, please call customer service at FREQUENCY:OTHER Resulting Agency Comment Specimen source: Blood Ernie Pompa MD LAB BLOOD ORDERABLES Performing Organization Address City/State/ZIP Code Phon e Number APS SPECTRA [facility] documented in this encounter Visit Diagnoses Not on filedocumented in this encounter
--- OUTSIDE RECORDS SUMMARY | 2021-10-27 05:43 | XMS_ITS | Encounter Summary ---
:1945 Author Organization [facility] Address [address] [place] [address] Care Team Providers Name Role Phone Unavailable Primary Care Provider Unavailable Encounter Details Date Type Department Care Team Description 02/24/2021 Orders Only [facility] O f Ernie Guzmán MD [address] [place] [address] [place], [place] [phone] (Wo rk) Social History Tobacco Use Types Packs/Day Years Used Date Smoking Tobacco: Unknown Comments: Smoking History Info:Patient n ot screened Sex Assigned at Date Recorded Not on file documented as of this encounter Plan of Treatment Not on filedocumented as of this encounter Procedures Procedure Name Priority Date/Time Associated Diagnosis Comme nts HEMATOLOGY Routine 02/24/2021 Results for thi s procedure are in the resu lts section. CHEMISTRY Routine 02/24/2021 Results for thi s procedure are in the resu lts section. documented in this encounter Results (ABNORMAL) Spectrae Chemistry (02/24/2021) P athologist Signature Ferritin 837 (H) 22 - 322 APS SPECTRA ng/mL [facility] Specimen (Source) Anatomical Collection Method Collection Time Re ceived Time Location / / Volume Laterality 02/24/2021 02/25/2021 6:54 PM COW RIDER Narrative APS SPECTRA [facility] - 02/26/2021 Unless otherwise specified, test(s) performed at: [facility], [address] [place] [address] PODIATRIST: Alec Payan M.D. For any questions, please call customer service at FREQUENCY:OTHER Resulting Agency Comment Specimen source: Serum Ernie Pompa MD LAB BLOOD ORDERABLES Performing Organization Address City/[facility]/ZIP Code Phon e Number APS SPECTRA [facility] (ABNORMAL) HEMATOLOGY (02/24/2021) Analysis Performed At Patho logist Time Signature Hemoglobin 10.2 (L) 14.0 - APS SPECTRA 18.0 g/dL [facility] Hemoglobin x 3 30.6 (L) 42.0 - APS SPECTRA 54.0 % [facility] Specimen (Source) Anatomical Collection Method Collection Time Re ceived Time Location / / Volume Laterality 02/24/2021 02/25/2021 10:2 3 AM COW RIDER Narrative APS SPECTRA [facility] - 02/25/2021 Unless otherwise specified, test(s) performed at: [facility], [address] [place] [address] PODIATRIST: Alec Payan M.D. For any questions, please call customer service at FREQUENCY:OTHER Resulting Agency Comment Specimen source: Blood Ernie Pompa MD LAB BLOOD ORDERABLES Performing Organization Address City/[facility] Phon e Number APS SPECTRA [facility] documented in this encounter Visit Diagnoses Not on filedocumented in this encounter
--- OUTSIDE RECORDS SUMMARY | 2021-10-27 05:44 | XMS_ITS | Encounter Summary ---
:1945 Author Organization [facility] Address [address] [place] [address] Care Team Providers Name Role Phone Unavailable Primary Care Provider Unavailable Encounter Details Date Type Department Care Team Description 04/15/2020 Orders Only [facility] O f Ernie Guzmán MD [address] [place] [address] [place], [place] [phone] (Wo rk) Social History Tobacco Use Types Packs/Day Years Used Date Smoking Tobacco: Unknown Comments: Smoking History Info:Patient n ot screened Sex Assigned at Date Recorded Not on file documented as of this encounter Plan of Treatment Not on filedocumented as of this encounter Procedures Procedure Name Priority Date/Time Associated Diagnosis Comme nts HEMATOLOGY Routine 04/15/2020 Results for thi s procedure are in the resu lts section. documented in this encounter Results (ABNORMAL) HEMATOLOGY (04/15/2020) Analysis Performed At Patho logist Time Signature Hemoglobin 10.3 (L) 14.0 - APS SPECTRA 18.0 g/dL [facility] Hemoglobin x 3 30.9 (L) 42.0 - APS SPECTRA 54.0 % [facility] Specimen (Source) Anatomical Collection Method Collection Time Re ceived Time Location / / Volume Laterality 04/15/2020 04/16/2020 9:36 AM SENIOR TELECOMMUNICATIONS CONSULTANT Narrative APS SPECTRA [facility] - 04/16/2020 Unless otherwise specified, test(s) performed at: [facility], [address] [place] [address] STATION GATEMAN: Alec Payan M.D. For any questions, please call customer service at FREQUENCY:OTHER Resulting Agency Comment Specimen source: Blood Ernie Pompa MD LAB BLOOD ORDERABLES Performing Organization Address City/State/ZIP Code Phon e Number APS SPECTRA [facility] documented in this encounter Visit Diagnoses Not on filedocumented in this encounter
--- OUTSIDE RECORDS SUMMARY | 2021-10-27 05:44 | XMS_ITS | Encounter Summary ---
:1945 Author Organization [facility] Address [address] [place] [address] Care Team Providers Name Role Phone Unavailable Primary Care Provider Unavailable Encounter Details Date Type Department Care Team Description 05/06/2020 Orders Only [facility] O f Ernie Guzmán MD [phone] [place] [address] [place], [place] [phone] (Wo rk) Social History Tobacco Use Types Packs/Day Years Used Date Smoking Tobacco: Unknown Comments: Smoking History Info:Patient n ot screened Sex Assigned at Date Recorded Not on file documented as of this encounter Plan of Treatment Not on filedocumented as of this encounter Procedures Procedure Name Priority Date/Time Associated Diagnosis Comme nts HEMATOLOGY Routine 05/06/2020 Results for thi s procedure are in the resu lts section. documented in this encounter Results (ABNORMAL) HEMATOLOGY (05/06/2020) Analysis Performed At Patho logist Time Signature Hemoglobin 10.3 (L) 14.0 - [facility] 18.0 g/dL [facility] Hemoglobin x 3 30.9 (L) 42.0 - [facility] 54.0 % [facility] Specimen (Source) Anatomical Collection Method Collection Time Re ceived Time Location / / Volume Laterality 05/06/2020 05/07/2020 2:32 PM ANNUAL GIVING OFFICER Narrative [facility] - 05/07/2020 Unless otherwise specified, test(s) performed at: [facility], [address] [place] [address] REFRIGERATING MACHINE OPERATOR: Alec Payan M.D. For any questions, please call customer service at FREQUENCY:OTHER Resulting Agency Comment Specimen source: Blood Ernie Pompa MD LAB BLOOD ORDERABLES Performing Organization Address City/State/ZIP Code Phon e Number [facility]PS S[facility]RA [facility] documented in this encounter Visit Diagnoses Not on filedocumented in this encounter
--- OUTSIDE RECORDS SUMMARY | 2021-10-27 05:44 | XMS_ITS | Encounter Summary ---
:1945 Author Organization [facility] Address [address] [place] [address] Care Team Providers Name Role Phone Unavailable Primary Care Provider Unavailable Encounter Details Date Type Department Care Team Description 08/26/2020 Orders Only [facility] f Ernie Guzmán MD [phone] [place] [address] [place], [place] [phone] (Wo rk) Social History Tobacco Use Types Packs/Day Years Used Date Smoking Tobacco: Unknown Comments: Smoking History Info:Patient n ot screened Sex Assigned at Date Recorded Not on file documented as of this encounter Plan of Treatment Not on filedocumented as of this encounter Procedures Procedure Name Priority Date/Time Associated Diagnosis Comme nts HEMATOLOGY Routine 08/26/2020 Results for thi s procedure are in the resu lts section. documented in this encounter Results (ABNORMAL) HEMATOLOGY (08/26/2020) Analysis Performed At Patho logist Time Signature Hemoglobin 9.3 (L) 14.0 - [facility] 18.0 g/dL [facility] Hemoglobin x 3 27.9 (L) 42.0 - [facility] 54.0 % [facility] Specimen (Source) Anatomical Collection Method Collection Time Re ceived Time Location / / Volume Laterality 08/26/2020 08/27/2020 7:19 PM CDT Narrative [facility]PS [facility] - 08/27/2020 Unless otherwise specified, test(s) performed at: [facility], [address] [place] [address] FERTILIZER APPLICATOR: Alec Payan M.D. For any questions, please call customer service at FREQUENCY:OTHER Resulting Agency Comment Specimen source: Blood Ernie Pompa MD LAB BLOOD ORDERABLES Performing Organization Address City/State/ZIP Code Phon e Number APS SPECTRA [facility] documented in this encounter Visit Diagnoses Not on filedocumented in this encounter
--- OUTSIDE RECORDS SUMMARY | 2021-10-27 05:44 | XMS_ITS | Encounter Summary ---
:1945 Author Organization [facility] Address [address] [place] [address] Care Team Providers Name Role Phone Unavailable Primary Care Provider Unavailable Encounter Details Date Type Department Care Team Description 2020 Treatment [facility] f Ernie Guzmán MD [address] [place] [address] [place], [place] [phone] (Wo rk) Social History Tobacco Use Types Packs/Day Years Used Date Smoking Tobacco: Unknown Comments: Smoking History Info:Patient n ot screened Sex Assigned at Date Recorded Not on file documented as of this encounter Miscellaneous Notes Dialysis Note - Ernie Pompa MD - 2020 10:59 AM CDT Date: 2020 Patient Name: Shaun Ocampo : 1945 Chart #: [id number] Sex: M This patient was personally seen for a basic visit as part of routine weekly dialysis care. A reviewof the dialysis treatment, blood pressure, estimated dry weight and recent lab values was made. These were discussed with the patient and staff as necessary. ARTIFICIAL STONE SETTER: Ernie Pompa MD LOCATION: [phone] SCHEDULE: M-W-F 2nd Shift ACCESS: EDW: kg. DIALYZER: HD DURATION: NEEDLE SIZE: ANTICOAG: BATH: QB: ml/min QD: ml/min Subjective Tolerating dialysis well. 08/05/20: Overall feels well. Still with high fluid gains, he has really hard time making changes andhas been more thirsty as he has been more active. No symptoms of fluid overload. Started sensipar and tolerating. Taking binders. 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 06/10: Doing well overall, no new complaints, [...] Went to Urgent care -> ER in [place] yesterday,CT with R hydro but no obstructive [...] He had infiltration last week, dialyzed at [facility] on Sat and went well, access [...] and no changes were made. BUN mg/dL 58 (07/22/20) 58 (06/24/20) 56 (05/20/20) 62 (04/22/20) 58 (03/25/20) UREA NITROGEN (MG/DL) IN SER/PLAS - POST DIALYSIS mg/dL 12 (07/22/20) 13 (06/24/20) 12 (05/20/20) 13 (04/22/20) 12 (03/25/20) URR % 79 (07/22/20) 78 (06/24/20) 79 (05/20/20) 79 (04/22/20) 79 (03/25/20) spKt/V Gotch 1.97 (07/22/20) 1.86 (06/24/20) 1.94 (05/20/20) 1.95 (04/22/20) 2.03 (03/25/20) eKdrt/V 1.7 (07/22/20) 1.61 (06/24/20) 1.68 (05/20/20) 1.69 (04/22/20) 1.76 (03/25/20) spKt/V (Daugirdas II) 1.8700 (07/22/20) 1.7800 (06/24/20) 1.8400 (05/20/20) 1.8600 (04/22/20) 1.9100 (03/25/20) HEMOGLOBIN (G/DL) IN BLOOD g/dL 10.7 (07/29/20) 11.0 (07/22/20) 10.2 (07/15/20) 10.1 (07/08/20) 9.6 (07/01/20) PLATELETS 1000/mcL 152 (07/22/20) 153 (06/24/20) 196 (05/20/20) 192 (04/22/20) 169 (03/25/20) IRON SATURATION % 26 (07/22/20) 32 (06/24/20) 33 (05/20/20) 32 (04/22/20) 31 (03/25/20) FERRITIN ng/mL 951 (06/24/20) 1040 (03/25/20) 912 (01/29/20) 732 (12/25/19) 844 (09/18/19) ALBUMIN (G/DL) g/dL 4.0 (07/22/20) 3.8 (06/24/20) 3.8 (05/20/20) Sodium mEq/L 137 (07/22/20) 137 (06/24/20) 134 (05/20/20) POTASSIUM (MMOL/L) IN SER/PLAS mEq/L 4.2 (07/22/20) 4.5 (06/24/20) 5.1 (05/20/20) BICARBONATE (CO2) mEq/L 25 (07/22/20) 24 (06/24/20) 24 (05/20/20) 25 OH VITAMIN D ng/mL 37.9 (03/25/20) 62.4 (09/18/19) 44.4 (05/01/19) BUN/CREATININE (MASS RATIO) IN SER/PLAS 9.3 (07/22/20) 9.1 (06/24/20) 9.5 (05/20/20) Calcium mg/dL 8.9 (07/22/20) 8.8 (06/24/20) 9.5 (05/20/20) Calcium Phos Product 55 (07/22/20) 48 (06/24/20) 59 (05/20/20) CALCIUM (MG/DL) CORRECTED FOR ALBUMIN IN SER/PLAS mg/dL 8.9 (07/22/20) 9.0 (06/24/20) 9.7 (05/20/20) PHOSPHATE (MG/DL) IN SER/PLAS mg/dL 6.2 (07/22/20) 5.5 (06/24/20) 6.2 (05/20/20) IPTH pg/mL 1020 (07/22/20) 807 (06/24/20) 952 (05/20/20) Vascular Access Assessment: Type of access: [id number] Surgeon - Lary GARDNER Access working well Impression and Plan No changes in prescription Discussed fluid gains, possible need for increased time on HD but he really wants to avoid more [id number]. Discussed possible need for extra treatments occasionally if high fluid gains. Sensipar started, calcitriol increased, phos is close to goal and he is working on this Ernie Pompa MD [ Signed And locked electronically On 2020 at 11:01:29 AM ] Transcribed: Ernie Pompa ( 2020 ) documented in this encounter Plan of Treatment Not on filedocumented as of this encounter Visit Diagnoses Not on filedocumented in this encounter
--- OUTSIDE RECORDS SUMMARY | 2021-10-27 05:44 | XMS_ITS | Encounter Summary ---
:1945 Author Organization [facility] Address [address] [place] [address] Care Team Providers Name Role Phone Unavailable Primary Care Provider Unavailable Encounter Details Date Type Department Care Team Description 07/22/2020 Orders Only [facility] O f Ernie Guzmán MD [address] [place] [address] [place], [place] [phone] (Wo rk) Social History Tobacco Use Types Packs/Day Years Used Date Smoking Tobacco: Unknown Comments: Smoking History Info:Patient n ot screened Sex Assigned at Date Recorded Not on file documented as of this encounter Plan of Treatment Not on filedocumented as of this encounter Procedures Procedure Name Priority Date/Time Associated Diagnosis Comme nts HD KINETICS Routine 07/22/2020 Results for thi s procedure are i n the results section . POST CHEMISTRY Routine 07/22/2020 Results for t his procedure are i n the results section . IMMUNO CHEMISTRY Routine 07/22/2020 Results for this procedure are i n the results section . HEMATOLOGY Routine 07/22/2020 Results for thi s procedure are i n the results section . CHEMISTRY Routine 07/22/2020 Results for thi s procedure are i n the results section . CHEMISTRY Routine 07/22/2020 Results for thi s procedure are i n the results section . S[facility]RA [facility] LAB RESULTS Routine 07/22/2020 Resul ts for this procedure are i n the results section . documented in this encounter Results Spectra [facility] Lab Results (07/22/2020) P athologist Signature spKt/V Gotch 1.97 [facility] PCR 77.75 [facility] spKt/V 1.87 [facility] (Daugirdas II) eKt/V 1.63 [facility] ([place]) nPCR_HD 1.17 [facility] eKdrt/V 1.70 [facility] eNPCR 1.10 [facility] eKt/V Gotch 1.70 [facility] Specimen (Source) Anatomical Location Collection Method / Collectio n Time Received Time / Laterality Volume 07/22/2020 07/22/2020 [facility] Ordering Provider LAB BLOOD ORDERABLES Performing Organization Address City/State/ZIP Code Phon e Number [facility] HD KINETICS (07/22/2020) P athologist Signature % Urea 79 65 - 80 % [facility]PS [facility] Reduction [facility] Specimen (Source) Anatomical Collection Method Collection Time Re ceived Time Location / / Volume Laterality 07/22/2020 07/23/2020 7:39 PM CDT Resulting Agency Comment Specimen source: Plasma Ernie Pompa MD LAB BLOOD ORDERABLES Performing Organization Address City/[facility]/ZIP Code Phon e Number [facility]PS [facility]RA [facility] POST CHEMISTRY (07/22/2020) athologist Signature BUN Post 12 6 - 19 [facility]PS [facility] Dialysis mg/dL [facility] Specimen (Source) Anatomical Collection Method Collection Time Re ceived Time Location / / Volume Laterality 07/22/2020 07/23/2020 7:39 PM CDT Narrative [facility]PS [facility] - 07/24/2020 Unless otherwise specified, test(s) performed at: [facility], [address] [place] [address] BILINGUAL KINDERGARTEN TEACHER: Alec Payan M.D. For any questions, please call customer service at FREQUENCY:MONTHLY Resulting Agency Comment Specimen source: Plasma Ernie Pompa MD LAB BLOOD ORDERABLES Performing Organization Address City/[facility] Phon e Number [facility]PS [facility]RA [facility] IMMUNO CHEMISTRY (07/22/2020) P athologist Signature Hep B Surface Negative Negative [facility]PS SPECTRA Ag [facility] Specimen (Source) Anatomical Collection Method Collection Time Re ceived Time Location / / Volume Laterality 07/22/2020 07/23/2020 4:57 PM CDT Narrative [facility]PS [facility] - 07/23/2020 Unless otherwise specified, test(s) performed at: [facility], [address] [place] [address] BILINGUAL KINDERGARTEN TEACHER: Alec Payan M.D. For any questions, please call customer service at FREQUENCY:MONTHLY Resulting Agency Comment Specimen source: Serum Ernie Pompa MD LAB BLOOD ORDERABLES Performing Organization Address City/State/ZIP Code Phon e Number [facility]PS S[facility]RA [facility] (ABNORMAL) Spectrae Chemistry (07/22/2020) [facility] Method Time Signature BUN 58 (H) 6 - 19 [facility] mg/dL [facility] Creatinine 6.25 (H) 0.60 - [facility]PS [facility] 1.30 mg/dL [facility] BUN/Creatinine 9.3 (L) 10.0 - [facility] Ratio 20.0 [facility] Sodium 137 136 - 145 [facility] mEq/L [facility] Potassium 4.2 3.5 - 5.1 [facility] mEq/L [facility] Chloride 96 96 - 108 [facility] mEq/L [facility] Bicarbonate 25 22 - 29 [facility] (CO2) mEq/L [facility] Calcium 8.9 8.4 - 10.2 [facility] mg/dL [facility] Corrected 8.9 8.4 - 10.2 [facility]PS [facility] Calcium mg/dL [facility] Comment: Corrected Calcium is not equivalent to m easured Ionized Calcium. Phosphorus 6.2 (H) 2.6 - 4.5 mg/dL APS SPECTRA [facility] Calcium Phosphorus Product 55 (H) 0 - 54 [facility]PS S[facility]RA [facility] Calcium Phosporus Product, Cor 55 (H) 0 - 54 APS [facility]RA [facility] Total Protein 7.1 6.0 - 8.5 g/dL [facility]PS [facility] Albumin 4.0 3.5 - 5.2 g/dL [facility] Globulin, Total 3.1 2.0 - 4.0 g/dL APS SPECT RA [facility] A/G Ratio 1.3 1.0 - 2.0 [facility]PS [facility]RA [facility] Iron 71 45 - 160 mcg/dL APS SPECTRA [place] [facility] UIBC 198 155 - 355 mcg/dL APS SPECTRA [facility] TIBC 269 185 - 515 mcg/dL APS SPECTRA [facility] Iron Saturation (TSat) 26 20 - 55 % APS SPE CTRA [facility] Specimen (Source) Anatomical Collection Method Collection Time Re ceived Time Location / / Volume Laterality 07/22/2020 07/23/2020 4:57 PM CDT Narrative APS S[facility]RA [facility] - 07/23/2020 Unless otherwise specified, test(s) performed at: [facility], [address] [place], [place] [id number] BILINGUAL KINDERGARTEN TEACHER: Alec Payan M.D. For any questions, please call customer service at FREQUENCY:MONTHLY Resulting Agency Comment Specimen source: Serum Ernie Pompa MD LAB BLOOD ORDERABLES Performing Organization Address City/[facility] Phon e Number APS SPECTRA [facility] (ABNORMAL) Spectrae Chemistry (07/22/2020) P athologist Signature PTH 1,020 (H) 16 - 80 APS SPECTRA pg/mL [facility] Specimen (Source) Anatomical Collection Method Collection Time Re ceived Time Location / / Volume Laterality 07/22/2020 07/23/2020 3:10 PM CDT Resulting Agency Comment Specimen source: Plasma Ernie Pompa MD LAB BLOOD ORDERABLES Performing Organization Address City/[facility] Code Phon e Number APS SPECTRA [facility] (ABNORMAL) HEMATOLOGY (07/22/2020) Analysis Performed At Patho logist Time Signature WBC 8.35 4.80 - APS S[facility]RA 10.80 [facility] 1000/mcL RBC 3.17 (L) 4.70 - APS SPECTRA 6.10 [facility] mill/mcL Hemoglobin 11.0 (L) 14.0 - APS [facility]RA 18.0 g/dL [facility] Hemoglobin x 3 33.0 (L) 42.0 - [facility] 54.0 % [facility] Hematocrit 34.2 (L) 42.0 - APS [facility]RA 52.0 % [facility] MCV 108 (H) 80 - 100 APS SPECTRA fl [facility] MCH 34.8 (H) 27.0 - APS [facility]RA 31.0 pg [facility] MCHC 32.2 30.0 - APS [facility]RA 36.0 g/dL [facility] RDW 14.9 (H) 11.5 - APS [facility]RA 14.5 % [facility] Platelets 152 130 - 400 APS [facility]RA 1000/mcL [facility] Specimen (Source) Anatomical Collection Method Collection Time Re ceived Time Location / / Volume Laterality 07/22/2020 07/23/2020 3:10 PM CDT Narrative APS SPECTRA [facility] - 07/23/2020 Unless otherwise specified, test(s) performed at: [facility], [address] [place] [id number] BILINGUAL KINDERGARTEN TEACHER: Alec Payan M.D. For any questions, please call customer service at FREQUENCY:MONTHLY Resulting Agency Comment Specimen source: Blood Ernie Pompa MD LAB BLOOD ORDERABLES Performing Organization Address City/State/ZIP Code Phon e Number APS SPECTRA [facility] documented in this encounter Visit Diagnoses Not on filedocumented in this encounter
--- OUTSIDE RECORDS SUMMARY | 2021-10-27 05:44 | XMS_ITS | Encounter Summary ---
:1945 Author Organization [facility] Address [address] [place] [address] Care Team Providers Name Role Phone Unavailable Primary Care Provider Unavailable Encounter Details Date Type Department Care Team Description 05/20/2020 Orders Only [facility] O f Ernie Guzmán MD [phone] [place] [address] [place], [place] [phone] (Wo rk) Social History Tobacco Use Types Packs/Day Years Used Date Smoking Tobacco: Unknown Comments: Smoking History Info:Patient n ot screened Sex Assigned at Date Recorded Not on file documented as of this encounter Plan of Treatment Not on filedocumented as of this encounter Procedures Procedure Name Priority Date/Time Associated Diagnosis Comme nts HD KINETICS Routine 05/20/2020 Results for thi s procedure are i n the results section . POST CHEMISTRY Routine 05/20/2020 Results for t his procedure are i n the results section . IMMUNO CHEMISTRY Routine 05/20/2020 Results for this procedure are i n the results section . HEMATOLOGY Routine 05/20/2020 Results for thi s procedure are i n the results section . CHEMISTRY Routine 05/20/2020 Results for thi s procedure are i n the results section . CHEMISTRY Routine 05/20/2020 Results for thi s procedure are i n the results section . SPECTRA [facility] LAB RESULTS Routine 05/20/2020 Resul ts for this procedure are i n the results section . documented in this encounter Results Spectra [facility] Lab Results (05/20/2020) P athologist Signature spKt/V 1.84 [facility] (Daugirdas II) eKdrt/V 1.68 [facility] eKt/V 1.61 [facility] ([place]) eKt/V Gotch 1.68 [facility] eNPCR 1.06 [facility] nPCR_HD 1.13 [facility] spKt/V Gotch 1.94 [facility] PCR 74.54 [facility] Specimen (Source) Anatomical Location Collection Method / Collectio n Time Received Time / Laterality Volume 05/20/2020 05/20/2020 [facility] Ordering Provider LAB BLOOD ORDERABLES Performing Organization Address City/State/ZIP Code Phon e Number [facility] HD KINETICS (05/20/2020) P athologist Signature % Urea 79 65 - 80 % APS SPECTRA Reduction [facility] Specimen (Source) Anatomical Collection Method Collection Time Re ceived Time Location / / Volume Laterality 05/20/2020 05/21/2020 10:4 9 PM DIRECTOR OF ADMISSIONS Resulting Agency Comment Specimen source: Plasma Ernie Pompa MD LAB BLOOD ORDERABLES Performing Organization Address City/[facility]/ZIP Code Phon e Number APS SPECTRA [facility] POST CHEMISTRY (05/20/2020) athologist Signature BUN Post 12 6 - 19 APS SPECTRA Dialysis mg/dL [facility] Specimen (Source) Anatomical Collection Method Collection Time Re ceived Time Location / / Volume Laterality 05/20/2020 05/21/2020 10:4 8 PM DIRECTOR OF ADMISSIONS Narrative APS SPECTRA [facility] - 05/22/2020 Unless otherwise specified, test(s) performed at: [facility], [address] [place] [address] ELECTRIC MOTOR TESTER ASSEMBLER: Alec Payan M.D. For any questions, please call customer service at FREQUENCY:MONTHLY Resulting Agency Comment Specimen source: Plasma Ernie Pompa MD LAB BLOOD ORDERABLES Performing Organization Address City/[facility]/ZIP Code Phon e Number APS SPECTRA [facility] IMMUNO CHEMISTRY (05/20/2020) athologist Signature Hep B Surface Negative Negative APS SPECTRA Ag [facility] Specimen (Source) Anatomical Collection Method Collection Time Re ceived Time Location / / Volume Laterality 05/20/2020 05/21/2020 6:17 PM DIRECTOR OF ADMISSIONS Narrative APS SPECTRA [facility] - 05/22/2020 Unless otherwise specified, test(s) performed at: [facility], [address] [place] [address] ELECTRIC MOTOR TESTER ASSEMBLER: Alec Payan M.D. For any questions, please call customer service at FREQUENCY:MONTHLY Resulting Agency Comment Specimen source: Serum Ernie Pompa MD LAB BLOOD ORDERABLES Performing Organization Address City/State/ZIP Code Phon e Number APS SPECTRA [facility] (ABNORMAL) Spectrae Chemistry (05/20/2020) P athologist Signature PTH 952 (H) 16 - 80 APS [facility]PECTRA pg/mL [facility] Specimen (Source) Anatomical Collection Method Collection Time Re ceived Time Location / / Volume Laterality 05/20/2020 05/21/2020 4:04 PM DIRECTOR OF ADMISSIONS Narrative APS SPECTRA [facility] - 05/22/2020 Unless otherwise specified, test(s) performed at: [place] [address] ELECTRIC MOTOR TESTER ASSEMBLER: Alec Payan M.D. For any questions, please call customer service at FREQUENCY:MONTHLY Resulting Agency Comment Specimen source: Plasma Ernie Pompa MD LAB BLOOD ORDERABLES Performing Organization Address City/State/ZIP Code Phon e Number APS SPECTRA [facility] (ABNORMAL) HEMATOLOGY (05/20/2020) Analysis Performed At Patho logist Time Signature WBC 7.08 4.80 - APS SPECTRA 10.80 [facility] 1000/mcL RBC 2.85 (L) 4.70 - APS SPECTRA 6.10 [facility] mill/mcL Hemoglobin 9.9 (L) 14.0 - APS SPECTRA 18.0 g/dL [facility] Hemoglobin x 3 29.7 (L) 42.0 - APS [facility]RA 54.0 % [facility] Hematocrit 30.8 (L) 42.0 - APS [facility]RA 52.0 % [facility] MCV 108 (H) 80 - 100 APS SPECTRA fl [facility] MCH 34.9 (H) 27.0 - APS [facility]RA 31.0 pg [facility] MCHC 32.2 30.0 - APS [facility]RA 36.0 g/dL [facility] RDW 15.4 (H) 11.5 - APS [facility]RA 14.5 % [facility] Platelets 196 130 - 400 APS [facility]PECTRA 1000/mcL [facility] Specimen (Source) Anatomical Collection Method Collection Time Re ceived Time Location / / Volume Laterality 05/20/2020 05/21/2020 4:04 PM DIRECTOR OF ADMISSIONS Narrative APS SPECTRA [facility] - 05/22/2020 Unless otherwise specified, test(s) performed at: [facility], [address] [place] [address] ELECTRIC MOTOR TESTER ASSEMBLER: Alec Payan M.D. For any questions, please call customer service at FREQUENCY:MONTHLY Resulting Agency Comment Specimen source: Blood Ernie Pompa MD LAB BLOOD ORDERABLES Performing Organization Address City/State/ZIP Code Phon e Number APS SPECTRA [facility] (ABNORMAL) Spectrae Chemistry (05/20/2020) [facility] gist Method Time Signature BUN 56 (H) 6 - 19 APS SPECTRA mg/dL [facility] Creatinine 5.92 (H) 0.60 - APS SPECTRA 1.30 mg/dL [facility] BUN/Creatinine 9.5 (L) 10.0 - APS SPECTRA Ratio 20.0 [facility] Sodium 134 (L) 136 - 145 APS SPECTRA mEq/L [facility] Potassium 5.1 3.5 - 5.1 [facility]PS [facility] mEq/L [facility] Chloride 96 96 - 108 [facility]PS [facility] mEq/L [facility] Bicarbonate 24 22 - 29 APS SPECTRA (CO2) mEq/L [facility] Calcium 9.5 8.4 - 10.2 [facility]PS [facility]RA mg/dL [facility] Corrected 9.7 8.4 - 10.2 APS SPECTRA Calcium mg/dL [facility] Comment: Corrected Calcium is not equivalent to m easured Ionized Calcium. Phosphorus 6.2 (H) 2.6 - 4.5 mg/dL APS SPECTRA [facility] Calcium Phosphorus Product 59 (H) 0 - 54 APS SPECTRA [facility] Calcium Phosporus Product, Cor 60 (H) 0 - 54 APS SPECTRA [facility] Total Protein 6.5 6.0 - 8.5 g/dL APS SPECTRA [facility] Albumin 3.8 3.5 - 5.2 g/dL APS SPECTRA [facility] [place] Globulin, Total 2.7 2.0 - 4.0 g/dL APS SPECT RA [facility] A/G Ratio 1.4 1.0 - 2.0 APS SPECTRA [facility] Iron 87 45 - 160 mcg/dL APS SPECTRA [place] MMN UIBC 178 155 - 355 mcg/dL APS SPECTRA K [facility] TIBC 265 185 - 515 mcg/dL APS SPECTRA K [facility] Iron Saturation (TSat) 33 20 - 55 % APS SPE CTRA [facility] Specimen (Source) Anatomical Collection Method Collection Time Re ceived Time Location / / Volume Laterality 05/20/2020 05/21/2020 6:17 PM DIRECTOR OF ADMISSIONS Narrative APS SPECTRA [facility] - 05/21/2020 Unless otherwise specified, test(s) performed at: [facility], [address] [place] [address] ELECTRIC MOTOR TESTER ASSEMBLER: Alec Payan M.D. For any questions, please call customer service at FREQUENCY:MONTHLY Resulting Agency Comment Specimen source: Serum Ernie Pompa MD LAB BLOOD ORDERABLES Performing Organization Address City/State/ZIP Code Phon e Number APS SPECTRA [facility] documented in this encounter Visit Diagnoses Not on filedocumented in this encounter
--- OUTSIDE RECORDS SUMMARY | 2021-10-27 05:44 | XMS_ITS | Encounter Summary ---
:1945 Author Organization [facility] Address [address] [place] [address] Care Team Providers Name Role Phone Unavailable Primary Care Provider Unavailable Encounter Details Date Type Department Care Team Description 08/19/2020 Orders Only [facility] O f Ernie Guzmán MD [phone] [place] [address] [place], [place] [phone] (Wo rk) Social History Tobacco Use Types Packs/Day Years Used Date Smoking Tobacco: Unknown Comments: Smoking History Info:Patient n ot screened Sex Assigned at Date Recorded Not on file documented as of this encounter Plan of Treatment Not on filedocumented as of this encounter Procedures Procedure Name Priority Date/Time Associated Diagnosis Comme nts HD KINETICS Routine 08/19/2020 Results for thi s procedure are i n the results section . POST CHEMISTRY Routine 08/19/2020 Results for t his procedure are i n the results section . IMMUNO CHEMISTRY Routine 08/19/2020 Results for this procedure are i n the results section . HEMATOLOGY Routine 08/19/2020 Results for thi s procedure are i n the results section . CHEMISTRY Routine 08/19/2020 Results for thi s procedure are i n the results section . CHEMISTRY Routine 08/19/2020 Results for thi s procedure are i n the results section . SPECTRA [facility] LAB RESULTS Routine 08/19/2020 Resul ts for this procedure are i n the results section . documented in this encounter Results Spectra [facility] Lab Results (08/19/2020) P athologist Signature nPCR_HD 1.05 [facility] spKt/V 1.78 [facility] (Daugirdas II) spKt/V Gotch 1.86 [facility] eKt/V 1.56 [facility] ([place]) PCR 69.69 [facility] eKdrt/V 1.62 [facility] eNPCR 0.93 [facility] eKt/V Gotch 1.62 [facility] Specimen (Source) Anatomical Location Collection Method / Collectio n Time Received Time / Laterality Volume 08/19/2020 08/19/2020 [facility] Ordering Provider LAB BLOOD ORDERABLES Performing Organization Address City/State/ZIP Code Phon e Number [facility] HD KINETICS (08/19/2020) P athologist Signature % Urea 78 65 - 80 % [facility]PS SPECTRA Reduction [facility] Specimen (Source) Anatomical Collection Method Collection Time Re ceived Time Location / / Volume Laterality 08/19/2020 08/21/2020 12:3 6 PM CDT Resulting Agency Comment Specimen source: Plasma Ernie Pompa MD LAB BLOOD ORDERABLES Performing Organization Address City/[facility]/ZIP Code Phon e Number [facility]PS SPECTRA [facility] POST CHEMISTRY (08/19/2020) athologist Signature BUN Post 11 6 - 19 [facility]PS [facility] Dialysis mg/dL [facility] Specimen (Source) Anatomical Collection Method Collection Time Re ceived Time Location / / Volume Laterality 08/19/2020 08/21/2020 12:3 5 PM CDT Narrative APS SPECTRA [facility] - 08/22/2020 Unless otherwise specified, test(s) performed at: [facility], [address] [place] [address] DIETITIAN THERAPEUTIC: Alec Payan M.D. For any questions, please call customer service at FREQUENCY:MONTHLY Resulting Agency Comment Specimen source: Plasma Ernie Pompa MD LAB BLOOD ORDERABLES Performing Organization Address City/[facility]/ZIP Code Phon e Number [facility]PS SPECTRA [facility] (ABNORMAL) Spectrae Chemistry (08/19/2020[facility] Time Signature BUN 49 (H) 6 - 19 [facility] mg/dL [facility] Creatinine 5.73 (H) 0.60 - [facility] 1.30 mg/dL [facility] BUN/Creatinine 8.6 (L) 10.0 - [facility] Ratio 20.0 [facility] Sodium 138 136 - 145 [facility] mEq/L [facility] Potassium 5.5 (H) 3.5 - 5.1 [facility] mEq/L [facility] Chloride 100 96 - 108 [facility] mEq/L [facility] Bicarbonate 23 22 - 29 [facility] (CO2) mEq/L [facility] Calcium 9.5 8.4 - 10.2 [facility] mg/dL [facility] Corrected 9.6 8.4 - 10.2 [facility] Calcium mg/dL [facility] Comment: Corrected Calcium is not equivalent to m easured Ionized Calcium. Phosphorus 5.1 (H) 2.6 - 4.5 mg/dL APS SPECTRA [facility] Calcium Phosphorus Product 48 0 - 54 APS SPECTRA [facility] Calcium Phosporus Product, Cor 49 0 - 54 [facility] Total Protein 6.9 6.0 - 8.5 g/dL APS S[facility]RA [facility] Albumin 3.9 3.5 - 5.2 g/dL [facility]PS [facility] Globulin, Total 3.0 2.0 - 4.0 g/dL APS SPECT RA [facility] A/G Ratio 1.3 1.0 - 2.0 [facility]PS [facility]RA [facility] Iron 93 45 - 160 mcg/dL APS SPECTRA [facility] UIBC 164 155 - 355 mcg/dL APS SPECTRA [facility] TIBC 257 185 - 515 mcg/dL APS SPECTRA [facility] Iron Saturation (TSat) 36 20 - 55 % APS SPE CTRA [facility] Specimen (Source) Anatomical Collection Method Collection Time Re ceived Time Location / / Volume Laterality 08/19/2020 08/21/2020 10:1 2 AM CDT Narrative APS SPECTRA [facility] - 08/22/2020 Unless otherwise specified, test(s) performed at: [facility], [address] [place] [address] DIETITIAN THERAPEUTIC: Alec Payan M.D. For any questions, please call customer service at FREQUENCY:MONTHLY Resulting Agency Comment Specimen source: Serum Ernie Pompa MD LAB BLOOD ORDERABLES Performing Organization Address City/State/ZIP Code Phon e Number APS SPECTRA [facility] (ABNORMAL) Spectrae Chemistry (08/19/2020) P athologist Signature PTH 696 (H) 16 - 80 APS SPECTRA pg/mL [facility] Specimen (Source) Anatomical Collection Method Collection Time Re ceived Time Location / / Volume Laterality 08/19/2020 08/21/2020 8:39 AM CDT Narrative APS SPECTRA [facility] - 08/21/2020 Unless otherwise specified, test(s) performed at: [facility], [address] [place] [address] DIETITIAN THERAPEUTIC: Alec Payan M.D. For any questions, please call customer service at FREQUENCY:MONTHLY Resulting Agency Comment Specimen source: Plasma Ernie Pompa MD LAB BLOOD ORDERABLES Performing Organization Address City/[facility] Phon e Number APS SPECTRA [facility] IMMUNO CHEMISTRY (08/19/2020) P athologist Signature Hep B Surface Negative Negative [facility] Ag [facility] Hepatitis B <10 mIU/mL [facility] Surface Ab [facility] Comment: Reference Range: <10 mIU/mL ? Non-Immune >=10 mIU/mL ?Immune The magnitude of the measured result abo ve 10 mIU/mL is not indicative of the total amount of antibody present. Custom Exception Hep B Core Total Ab Negative Negative APS SPECTR A [facility] Comment: Hep B Core Ab, Total appears during the acute infection stage and remains reactive/positive throughout the recovery stage. The above test result was obtained using Siemens Centaur XP chemiluminescent method. Results obtaine d with different assay methods or kits cannot be used interchangeably. Specimen (Source) Anatomical Collection Method Collection Time Re ceived Time Location / / Volume Laterality 08/19/2020 08/21/2020 10:1 2 AM CDT Narrative APS SPECTRA [facility] - 08/21/2020 Unless otherwise specified, test(s) performed at: [facility], [address] [place] [address] DIETITIAN THERAPEUTIC: Alec Payan M.D. For any questions, please call customer service at FREQUENCY:MONTHLY Resulting Agency Comment Specimen source: Serum Ernie Pompa MD LAB BLOOD ORDERABLES Performing Organization Address [facility] Phon e Number APS SPECTRA [facility] (ABNORMAL) HEMATOLOGY (08/19/2020) Analysis Performed At Patho logist Time Signature WBC 7.50 4.80 - [facility]PS [facility]RA 10.80 [facility] 1000/mcL RBC 2.79 (L) 4.70 - APS SPECTRA 6.10 [facility] mill/mcL Hemoglobin 9.6 (L) 14.0 - APS [facility]RA 18.0 g/dL [facility] Hemoglobin x 3 28.8 (L) 42.0 - APS [facility]PECTRA 54.0 % [facility] Hematocrit 30.3 (L) 42.0 - APS [facility]RA 52.0 % [facility] MCV 109 (H) 80 - 100 APS SPECTRA fl [facility] MCH 34.3 (H) 27.0 - APS [facility]RA 31.0 pg [facility] MCHC 31.5 30.0 - [facility]PS [facility] 36.0 g/dL [facility] RDW 14.5 11.5 - APS [facility]RA 14.5 % [facility] Platelets 147 130 - 400 APS SPECTRA 1000/mcL [facility] Specimen (Source) Anatomical Collection Method Collection Time Re ceived Time Location / / Volume Laterality 08/19/2020 08/21/2020 8:41 AM CDT Narrative APS SPECTRA [facility] - 08/21/2020 Unless otherwise specified, test(s) performed at: [facility], [address] [place] [address] DIETITIAN THERAPEUTIC: Alec Payan M.D. For any questions, please call customer service at FREQUENCY:MONTHLY Resulting Agency Comment Specimen source: Blood Ernie Pompa MD LAB BLOOD ORDERABLES Performing Organization Address City/State/ZIP Code Phon e Number APS SPECTRA [facility] documented in this encounter Visit Diagnoses Not on filedocumented in this encounter
--- OUTSIDE RECORDS SUMMARY | 2021-10-27 05:44 | XMS_ITS | Encounter Summary ---
:1945 Author Organization [facility] Address [address] [place] [address] Care Team Providers Name Role Phone Unavailable Primary Care Provider Unavailable Encounter Details Date Type Department Care Team Description 07/22/2020 Treatment [facility] O f Ernie Guzmán MD [address] [place] [address] [place], [place] [phone] (Wo rk) Social History Tobacco Use Types Packs/Day Years Used Date Smoking Tobacco: Unknown Comments: Smoking History Info:Patient n ot screened Sex Assigned at Date Recorded Not on file documented as of this encounter Miscellaneous Notes Dialysis Note - Ernie Pompa MD - 07/22/2020 10:25 AM CDT Date: July 22, 2020 Patient Name: Shaun Ocampo : 1945 Chart #: [id number] Sex: M This patient was personally seen for a complete visit as part of routine monthly dialysis care. A review of the dialysis treatment, blood pressure, estimated dry weight and recent lab values was made. These were discussed with the patient and staff as necessary. Treatment Data for 07/22/2020 started at:9:20 AM Dialyzer: 180NRe Optiflux Na: 138 mEq/L Bicarb: 30 mEq/L Dialysate: 2.0 K, 2.25 Ca, 1.0 Mg, 100 Dextrose (G2231) Dialysate/Machine Temp (prescribed): 37 C Dialysate/Machine Temp (actual): 37 C BFR (prescribed): 500 BFR (actual): 500 Prescribed time: 04:00 EDW: 108 kg Access Type: Active (In Use):AVFistula-Standard/Left Upper Arm Pre Dialysis Vitals (for 07/22/2020 9:03 AM ) Pre BP (sit): 161/72 Pre Wt: 112.4 kg Temp: 96.4 F Post Dialysis Vitals (for 07/20/2020 1:47 PM ) Post BP (sit): 140/66 Post Wt: 111 kg Current Dialysis Vitals (for 07/22/2020 10:04 AM ) BP (sit): 139/55 AP(-) / BENCH ASSEMBLER: 262/224 Pulse: 69 Chairside data as of 07/22/2020 10:04 AM Last 3 Treatments 07/20/2020 07/17/2020 07/15/2020 EDW (kg) 108 108 108 Weight Pre (kg) 115.8 113.8 113.4 Weight Post (kg) 111 109.6 109.7 Dialytic Weight Loss (kg) -4.8 -4.2 -3.7 EDW Deviation (kg) 3 1.6 1.7 BP Sit Pre 161/81 138/56 132/51 BP Sit Post 140/66 131/79 120/83 UF Rate (mL/kg/hr) 10 10 8 Prescribed BFR 500 500 500 Average Delivered BFR 450 450 500 Prescribed Treatment Time 04:00 04:00 04:00 Actual Treatment Time 04:27 04:02 04:04 Last 3 Values 06/26/2020 05/29/2020 05/01/2020 Access Flow > 2000 > 2000 > 2000 Treatment Medication Orders Medication Sig Start Date End Date Cinacalcet (Sensipar) 60 mg ORAL 3X Week Post Dialysis,with snack 05/22/2020 05/21/2021 Heparin Sodium (Porcine) 1,000 Units/mL Systemic 1000 units IVP Every Treatment 03/27/2020 03/26/2021 Heparin Sodium (Porcine) 1,000 Units/mL Systemic 2000 units IVP Every Treatment 03/27/2020 03/26/2021 Iron Sucrose (Venofer) 50 mg IVP 1X Week During Dialysis 10/28/2019 10/19/2020 Mircera 75 mcg IVP Every 4 weeks During Dialysis 07/08/2020 07/07/2021 REGULATORY PRODUCT MANAGER: Ernie Pompa MD LOCATION: [phone] SCHEDULE: M-W-F 2nd Shift EDW: kg. DIALYZER: HD DURATION: NEEDLE SIZE: ANTICOAG: BATH: QB: ml/min QD: ml/min Subjective Tolerating dialysis well. 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 06/10: Doing well overall, no new complaints, [...] Went to Urgent care -> ER in [place] yesterday,CT with R hydro but no obstructive [...] He had infiltration last week, dialyzed at [facility] on Sat and went well, access [...] murmur heard. Edema - 1+ leg edema. stable, ongoing chronic venous stasis changes Access - AVF intact with needles in [...] made. Treatment and Adequacy Assessment BUN mg/dL 58 (06/24/20) 56 (05/20/20) 62 (04/22/20) 58 (03/25/20) 57 (02/19/20) UREA NITROGEN (MG/DL) IN SER/PLAS - POST DIALYSIS mg/dL 13 (06/24/20) 12 (05/20/20) 13 (04/22/20) 12 (03/25/20) 13 (02/19/20) URR % 78 (06/24/20) 79 (05/20/20) 79 (04/22/20) 79 (03/25/20) 77 (02/19/20) spKt/V Gotch 1.86 (06/24/20) 1.94 (05/20/20) 1.95 (04/22/20) 2.03 (03/25/20) 1.84 (02/19/20) eKdrt/V 1.61 (06/24/20) 1.68 (05/20/20) 1.69 (04/22/20) 1.76 (03/25/20) 1.6 (02/19/20) spKt/V (Daugirdas II) 1.7800 (06/24/20) 1.8400 (05/20/20) 1.8600 (04/22/20) 1.9100 (03/25/20) 1.7600 (02/19/20) Dialysis is adequate. Achieves prescribed time - Yes Achieves prescribed frequency - Yes Continue current prescription. Vascular Access Assessment Type of access: Koxsqnh31/2019 Surgeon - Lary KUMARW Access working well Anemia Assessment HEMOGLOBIN (G/DL) IN BLOOD g/dL 10.2 (07/15/20) 10.1 (07/08/20) 9.6 (07/01/20) 9.9 (06/24/20) 9.9 (06/17/20) PLATELETS 1000/mcL 153 (06/24/20) 196 (05/20/20) 192 (04/22/20) 169 (03/25/20) 190 (02/19/20) IRON SATURATION % 32 (06/24/20) 33 (05/20/20) 32 (04/22/20) 31 (03/25/20) 40 (02/19/20) FERRITIN ng/mL 951 (06/24/20) 1040 (03/25/20) 912 (01/29/20) 732 (12/25/19) 844 (09/18/19) Hemoglobin is at goal. Iron Saturation is at goal. Ferritin is at goal. Will adjust NATALEE and intravenous iron per protocol. Nutritional and Metabolic Assessment ALBUMIN (G/DL) g/dL 3.8 (06/24/20) 3.8 (05/20/20) 3.9 (04/22/20) 3.9 (03/25/20) 4.0 (02/19/20) Sodium mEq/L 137 (06/24/20) 134 (05/20/20) 137 (04/22/20) 135 (03/25/20) 139 (02/19/20) POTASSIUM (MMOL/L) IN SER/PLAS mEq/L 4.5 (06/24/20) 5.1 (05/20/20) 4.2 (04/22/20) 4.8 (03/25/20) 5.1 (02/19/20) BICARBONATE (CO2) mEq/L 24 (06/24/20) 24 (05/20/20) 24 (04/22/20) 24 (03/25/20) 19 (02/19/20) 25 OH VITAMIN D ng/mL 37.9 (03/25/20) 62.4 (09/18/19) Albumin is below goal. Encourage high-biological value protein intake. Potassium is at goal. Bicarbonate is at goal. Continue same bicarbonate in dialysate. Bone and Mineral Metabolism Assessment Calcium mg/dL 8.8 (06/24/20) 9.5 (05/20/20) 9.3 (04/22/20) 9.9 (03/25/20) 10.0 (02/19/20) CALCIUM (MG/DL) CORRECTED FOR ALBUMIN IN SER/PLAS mg/dL 9.0 (06/24/20) 9.7 (05/20/20) 9.4 (04/22/20) 10.0 (03/25/20) 10.0 (02/19/20) PHOSPHATE (MG/DL) IN SER/PLAS mg/dL 5.5 (06/24/20) 6.2 (05/20/20) 5.7 (04/22/20) 5.9 (03/25/20) 5.8 (02/19/20) CALCIUM PHOSPHORUS PRODUCT, COR 50 (06/24/20) 60 (05/20/20) 54 (04/22/20) 59 (03/25/20) 58 (02/19/20) IPTH pg/mL 807 (06/24/20) 952 (05/20/20) 1004 (04/22/20) 828 (03/25/20) 506 (12/25/19) Corrected Calcium is at goal. Phosphorous is at goal. Intact PTH is above goal. General Service Officer will adjust binders and vitamin D per protocol and continue to provide dietary education. We started calcitriol 0.25mcg on MWF, has home supply so he will take on his own. Re-check labs today Cardiovascular Assessment Blood pressures reviewed and are acceptable. Intradialytic weight gains are too high. Estimated dry weight is appropriate. Discussed fluid restriction and ways to track fluid today and importance of lower IDWG to protect heart again today. Keeping himself busy is best way he has found to restrict fluid intake and he is making attempts at doing this. We will try to schedule UF run to get back to EDW and see if he can maintain at EDW then. If not, discussed needing to increase time on HD. Transplant Status: Patient is not a candidate. Weight, co-morbidities, age Resuscitation Status Stable dialysis, no changes to prescription Discussed weight gains again, may need to increase EDW but I think it is accurate and will leave fornow and work toward achieving dry weight f/u with Dr. Hernandez after cysto yesterday, I will check uric acid lvl. He is on allopurinol currently Ernie Pompa MD [ Signed And locked electronically On 07/22/2020 at 10:28:25 AM ] Transcribed: Ernie Pompa ( 07/22/2020 ) documented in this encounter Plan of Treatment Not on filedocumented as of this encounter Visit Diagnoses Not on filedocumented in this encounter
--- OUTSIDE RECORDS SUMMARY | 2021-10-27 05:44 | XMS_ITS | Encounter Summary ---
:1945 Author Organization [facility] Address [address] [place] [address] Care Team Providers Name Role Phone Unavailable Primary Care Provider Unavailable Encounter Details Date Type Department Care Team Description 05/13/2020 Orders Only [facility] O f Ernie Guzmán MD [address] [place] [address] [place], [place] [phone] (Wo rk) Social History Tobacco Use Types Packs/Day Years Used Date Smoking Tobacco: Unknown Comments: Smoking History Info:Patient n ot screened Sex Assigned at Date Recorded Not on file documented as of this encounter Plan of Treatment Not on filedocumented as of this encounter Procedures Procedure Name Priority Date/Time Associated Diagnosis Comme nts HEMATOLOGY Routine 05/13/2020 Results for thi s procedure are in the resu lts section. documented in this encounter Results (ABNORMAL) HEMATOLOGY (05/13/2020) Analysis Performed At Patho logist Time Signature Hemoglobin 10.1 (L) 14.0 - APS SPECTRA 18.0 g/dL [facility] Hemoglobin x 3 30.3 (L) 42.0 - APS SPECTRA 54.0 % [facility] Specimen (Source) Anatomical Collection Method Collection Time Re ceived Time Location / / Volume Laterality 05/13/2020 05/14/2020 3:41 PM NURSE TRANSITIONAL Narrative APS SPECTRA [facility] - 05/14/2020 Unless otherwise specified, test(s) performed at: [facility], [address] [place] [id number] FEED MILL TENDER: Alec Payan M.D. For any questions, please call customer service at FREQUENCY:OTHER Resulting Agency Comment Specimen source: Blood Ernie Pompa MD LAB BLOOD ORDERABLES Performing Organization Address City/State/ZIP Code Phon e Number APS SPECTRA [facility] documented in this encounter Visit Diagnoses Not on filedocumented in this encounter
--- OUTSIDE RECORDS SUMMARY | 2021-10-27 05:44 | XMS_ITS | Encounter Summary ---
:1945 Author Organization [facility] Address [address] [place] [address] Care Team Providers Name Role Phone Unavailable Primary Care Provider Unavailable Encounter Details Date Type Department Care Team Description 08/12/2020 Orders Only [facility] O f Ernie Guzmán MD [phone] [place] [address] [place], [place] [phone] (Wo rk) Social History Tobacco Use Types Packs/Day Years Used Date Smoking Tobacco: Unknown Comments: Smoking History Info:Patient n ot screened Sex Assigned at Date Recorded Not on file documented as of this encounter Plan of Treatment Not on filedocumented as of this encounter Procedures Procedure Name Priority Date/Time Associated Diagnosis Comme nts HEMATOLOGY Routine 08/12/2020 Results for thi s procedure are in the resu lts section. documented in this encounter Results (ABNORMAL) HEMATOLOGY (08/12/2020) Analysis Performed At Patho logist Time Signature Hemoglobin 9.1 (L) 14.0 - APS SPECTRA 18.0 g/dL [facility] Hemoglobin x 3 27.3 (L) 42.0 - APS SPECTRA 54.0 % [facility] Specimen (Source) Anatomical Collection Method Collection Time Re ceived Time Location / / Volume Laterality 08/12/2020 08/13/2020 1:08 PM CDT Narrative APS SPECTRA [facility] - 08/13/2020 Unless otherwise specified, test(s) performed at: [facility], [address] [place] [address] FARM LABORER: Alec Payan M.D. For any questions, please call customer service at FREQUENCY:OTHER Resulting Agency Comment Specimen source: Blood Ernie Pompa MD LAB BLOOD ORDERABLES Performing Organization Address City/State/ZIP Code Phon e Number APS SPECTRA [facility] documented in this encounter Visit Diagnoses Not on filedocumented in this encounter
--- OUTSIDE RECORDS SUMMARY | 2021-10-27 05:44 | XMS_ITS | Encounter Summary ---
:1945 Author Organization [facility] Address [address] [place] [address] Care Team Providers Name Role Phone Unavailable Primary Care Provider Unavailable Encounter Details Date Type Department Care Team Description 07/29/2020 Orders Only [facility] O f Ernie Guzmán MD [address] [place] [address] [place], [place] [phone] (Wo rk) Social History Tobacco Use Types Packs/Day Years Used Date Smoking Tobacco: Unknown Comments: Smoking History Info:Patient n ot screened Sex Assigned at Date Recorded Not on file documented as of this encounter Plan of Treatment Not on filedocumented as of this encounter Procedures Procedure Name Priority Date/Time Associated Diagnosis Comme nts HEMATOLOGY Routine 07/29/2020 Results for thi s procedure are in the resu lts section. documented in this encounter Results (ABNORMAL) HEMATOLOGY (07/29/2020) Analysis Performed At Patho logist Time Signature Hemoglobin 10.7 (L) 14.0 - APS SPECTRA 18.0 g/dL [facility] Hemoglobin x 3 32.1 (L) 42.0 - APS SPECTRA 54.0 % [facility] Specimen (Source) Anatomical Collection Method Collection Time Re ceived Time Location / / Volume Laterality 07/29/2020 07/30/2020 3:42 PM CDT Narrative APS SPECTRA [facility] - 07/30/2020 Unless otherwise specified, test(s) performed at: [facility], [address] [place] [address] FISHERIES SPECIALIST: Alec Payan M.D. For any questions, please call customer service at FREQUENCY:OTHER Resulting Agency Comment Specimen source: Blood Ernie Pompa MD LAB BLOOD ORDERABLES Performing Organization Address City/State/ZIP Code Phon e Number APS SPECTRA [facility] documented in this encounter Visit Diagnoses Not on filedocumented in this encounter
--- OUTSIDE RECORDS SUMMARY | 2021-10-27 05:44 | XMS_ITS | Encounter Summary ---
:1945 Author Organization [facility] Address [address] [place] [address] Care Team Providers Name Role Phone Unavailable Primary Care Provider Unavailable Encounter Details Date Type Department Care Team Description 2020 Orders Only [facility] O f Ernie Guzmán MD [address] [place] [address] [place], [place] [phone] (Wo rk) Social History Tobacco Use Types Packs/Day Years Used Date Smoking Tobacco: Unknown Comments: Smoking History Info:Patient n ot screened Sex Assigned at Date Recorded Not on file documented as of this encounter Plan of Treatment Not on filedocumented as of this encounter Procedures Procedure Name Priority Date/Time Associated Diagnosis Comme nts HEMATOLOGY Routine 2020 Results for thi s procedure are in the resu lts section. documented in this encounter Results (ABNORMAL) HEMATOLOGY (2020) Analysis Performed At Patho logist Time Signature Hemoglobin 9.9 (L) 14.0 - APS SPECTRA 18.0 g/dL [facility] Hemoglobin x 3 29.7 (L) 42.0 - APS SPECTRA 54.0 % [facility] Specimen (Source) Anatomical Collection Method Collection Time Re ceived Time Location / / Volume Laterality 2020 08/06/2020 2:01 PM CDT Narrative APS SPECTRA [facility] - 08/06/2020 Unless otherwise specified, test(s) performed at: [facility], [address] [place] [id number] MARINE ENGINEER: Alec Payan M.D. For any questions, please call customer service at FREQUENCY:OTHER Resulting Agency Comment Specimen source: Blood Ernie Pompa MD LAB BLOOD ORDERABLES Performing Organization Address City/State/ZIP Code Phon e Number APS SPECTRA [facility] documented in this encounter Visit Diagnoses Not on filedocumented in this encounter
--- OUTSIDE RECORDS SUMMARY | 2021-10-27 05:44 | XMS_ITS | Encounter Summary ---
:1945 Author Organization [facility] Address [address] [place] [address] Care Team Providers Name Role Phone Unavailable Primary Care Provider Unavailable Encounter Details Date Type Department Care Team Description 09/02/2020 Orders Only [facility] Ernie Guzmán MD [phone] [place] [address] [place], [place] [phone] (Wo rk) Social History Tobacco Use Types Packs/Day Years Used Date Smoking Tobacco: Unknown Comments: Smoking History Info:Patient n ot screened Sex Assigned at Date Recorded Not on file documented as of this encounter Plan of Treatment Not on filedocumented as of this encounter Procedures Procedure Name Priority Date/Time Associated Diagnosis Comme nts HEMATOLOGY Routine 09/02/2020 Results for thi s procedure are in the resu lts section. documented in this encounter Results (ABNORMAL) HEMATOLOGY (09/02/2020) Analysis Performed At Patho logist Time Signature Hemoglobin 10.0 (L) 14.0 - [facility] 18.0 g/dL [facility] Hemoglobin x 3 30.0 (L) 42.0 - [facility]RA 54.0 % [facility] Specimen (Source) Anatomical Collection Method Collection Time Re ceived Time Location / / Volume Laterality 09/02/2020 09/03/2020 5:19 PM CDT Narrative APS SPECTRA [facility] - 09/03/2020 Unless otherwise specified, test(s) performed at: [facility], [address] [place] [address] PROPELLANT CHARGE LOADER: Alec Payan M.D. For any questions, please call customer service at FREQUENCY:OTHER Resulting Agency Comment Specimen source: Blood Ernie Pompa MD LAB BLOOD ORDERABLES Performing Organization Address City/State/ZIP Code Phon e Number APS SPECTRA [facility] documented in this encounter Visit Diagnoses Not on filedocumented in this encounter
--- OUTSIDE RECORDS SUMMARY | 2021-10-27 05:44 | XMS_ITS | Encounter Summary ---
:1945 Author Organization [facility] Address [address] [place] [address] Care Team Providers Name Role Phone Unavailable Primary Care Provider Unavailable Encounter Details Date Type Department Care Team Description 04/22/2020 Treatment [facility] Ernie Guzmán MD [address] [place] [address] [place], [place] [phone] (Wo rk) Social History Tobacco Use Types Packs/Day Years Used Date Smoking Tobacco: Unknown Comments: Smoking History Info:Patient n ot screened Sex Assigned at Date Recorded Not on file documented as of this encounter Miscellaneous Notes Dialysis Note - Ernie Pompa MD - 04/22/2020 11:52 AM CST Date: Apr 22, 2020 Patient Name: Shaun Ocampo : 1945 Chart #: [id number] Sex: M This patient was personally seen for a complete visit as part of routine monthly dialysis care. A review of the dialysis treatment, blood pressure, estimated dry weight and recent lab values was made. These were discussed with the patient and staff as necessary. Treatment Data for 04/22/2020 started at:9:24 AM Dialyzer: 180NRe Optiflux Na: 138 mEq/L Bicarb: 30 mEq/L Dialysate: 2.0 K, 2.25 Ca, 1.0 Mg, 100 Dextrose (G2231) Dialysate/Machine Temp (prescribed): 37 C Dialysate/Machine Temp (actual): 37 C BFR (prescribed): 500 BFR (actual): 500 Prescribed time: 04:00 EDW: 107 kg Access Type: Active (In Use):AVFistula-Standard/Left Upper Arm Pre Dialysis Vitals (for 04/22/2020 9:16 AM ) Pre BP (sit): 133/58 Pre Wt: 111 kg Temp: 97.7 F Post Dialysis Vitals (for 04/20/2020 1:22 PM ) Post BP (sit): 124/60 Post Wt: 109.2 kg Current Dialysis Vitals (for 04/22/2020 11:03 AM ) BP (sit): 115/64 AP(-) / INTERCHANGE AGENT: 258/208 Pulse: 67 Chairside data as of 04/22/2020 11:03 AM Last 3 Treatments 04/20/2020 04/17/2020 04/15/2020 EDW (kg) 107 107 107 Weight Pre (kg) 113.7 112.3 111.9 Weight Post (kg) 109.2 107.7 107.9 Dialytic Weight Loss (kg) -4.5 -4.6 -4 EDW Deviation (kg) 2.2 0.7 0.9 BP Sit Pre 155/52 171/74 153/66 BP Sit Post 124/60 130/56 132/56 UF Rate (mL/kg/hr) 11 11 9 Prescribed BFR 500 500 500 Average Delivered BFR 510 510 510 Prescribed Treatment Time 04:00 04:00 04:00 Actual Treatment Time 04:00 04:01 04:01 Last 3 Values 04/03/2020 02/21/2020 01/24/2020 Access Flow > 2000 > 2000 > 2000 Treatment Medication Orders Medication Sig Start Date End Date Cinacalcet (Sensipar) 30 mg ORAL 3X Week Post Dialysis,with snack 04/13/2020 04/12/2021 Heparin Sodium (Porcine) 1,000 Units/mL Systemic 1000 units IVP Every Treatment 03/27/2020 03/26/2021 Heparin Sodium (Porcine) 1,000 Units/mL Systemic 2000 units IVP Every Treatment 03/27/2020 03/26/2021 Iron Sucrose (Venofer) 50 mg IVP 1X Week During Dialysis 10/28/2019 10/19/2020 Mircera 50 mcg IVP Every 4 weeks During Dialysis 04/15/2020 04/14/2021 REGISTERED NURSE CARDIAC TELEMETRY: Ernie Pompa MD LOCATION: [phone] SCHEDULE: M-W-F 2nd Shift EDW: kg. DIALYZER: HD DURATION: NEEDLE SIZE: ANTICOAG: BATH: QB: ml/min QD: ml/min Subjective Tolerating dialysis well. Good appetite. Reports no trouble with access. 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 Edema - 1+ leg edema. improved and now stable with chronic stasis changes Access - AVF intact with [...] Treatment and Adequacy Assessment BUN mg/dL 58 (03/25/20) 57 (02/19/20) 70 (01/22/20) 53 (01/01/20) 48 (12/25/19) UREA NITROGEN (MG/DL) IN SER/PLAS - POST DIALYSIS mg/dL 12 (03/25/20) 13 (02/19/20) 16 (01/22/20) 12 (01/01/20) <^2 (12/25/19) URR % 79 (03/25/20) 77 (02/19/20) 77 (01/22/20) 77 (01/01/20) 76 (11/20/19) spKt/V Gotch 2.03 (03/25/20) 1.87 (01/01/20) 1.83 (11/20/19) 1.74 (10/28/19) 1.79 (09/18/19) eKdrt/V 1.76 (03/25/20) 1.62 (01/01/20) 1.59 (11/20/19) 1.51 (10/28/19) 1.56 (09/18/19) spKt/V (Daugirdas II) 1.9100 (03/25/20) 1.7600 (02/19/20) 1.7800 (01/22/20) 1.7800 (01/01/20) 1.7400 (11/20/19) Dialysis is adequate. Achieves prescribed time - Yes Achieves prescribed frequency - Yes Continue current prescription. Vascular Access Assessment Type of access: Ulrrcbp12/2019 Surgeon - Lary GARDNER Access working well Anemia Assessment HEMOGLOBIN (G/DL) IN BLOOD g/dL 10.3 (04/15/20) 9.8 (04/08/20) 10.1 (04/01/20) 10.4 (03/25/20) 10.7 (03/16/20) PLATELETS 1000/mcL 169 (03/25/20) 190 (02/19/20) 158 (01/22/20) 157 (12/25/19) 194 (11/20/19) IRON SATURATION % 31 (03/25/20) 40 (02/19/20) 48 (01/22/20) 45 (12/25/19) 42 (11/20/19) FERRITIN ng/mL 1040 (03/25/20) 912 (01/29/20) 732 (12/25/19) 844 (09/18/19) 200 (07/29/19) Hemoglobin is at goal. Iron Saturation is at goal. Ferritin is at goal. Will adjust NATALEE and intravenous iron per protocol. Nutritional and Metabolic Assessment ALBUMIN (G/DL) g/dL 3.9 (03/25/20) 4.0 (02/19/20) 3.6 (01/22/20) 3.8 (12/25/19) 3.8 (11/20/19) Sodium mEq/L 135 (03/25/20) 139 (02/19/20) 135 (01/22/20) 137 (12/25/19) 138 (11/20/19) POTASSIUM (MMOL/L) IN SER/PLAS mEq/L 4.8 (03/25/20) 5.1 (02/19/20) 4.4 (01/22/20) 4.8 (12/25/19) 4.3 (11/20/19) BICARBONATE (CO2) mEq/L 24 (03/25/20) 19 (02/19/20) 21 (01/22/20) 22 (12/25/19) 22 (11/20/19) 25 OH VITAMIN D ng/mL 37.9 (03/25/20) 62.4 (09/18/19) 44.4 (05/01/19) Albumin is at goal. Encourage high-biological value protein intake. Potassium is at goal. Bicarbonate is below goal. Continue same bicarbonate in dialysate. repeat bicarb today Bone and Mineral Metabolism Assessment Calcium mg/dL 9.9 (03/25/20) 10.0 (02/19/20) 9.7 (01/22/20) 10.0 (12/25/19) 10.0 (12/04/19) CALCIUM (MG/DL) CORRECTED FOR ALBUMIN IN SER/PLAS mg/dL 10.0 (03/25/20) 10.0 (02/19/20) 10.0 (01/22/20) 10.2 (12/25/19) 10.4 (11/20/19) PHOSPHATE (MG/DL) IN SER/PLAS mg/dL 5.9 (03/25/20) 5.8 (02/19/20) 6.4 (01/22/20) 6.1 (12/25/19) 4.8 (11/20/19) CALCIUM PHOSPHORUS PRODUCT, COR 59 (03/25/20) 58 (02/19/20) 64 (01/22/20) 62 (12/25/19) 50 (11/20/19) IPTH pg/mL 828 (03/25/20) 506 (12/25/19) 167 (09/18/19) 164 (07/24/19) 199 (06/19/19) Corrected Calcium is at goal. Phosphorous is above goal. Intact PTH is above goal. Automobile Body Repair Supervisor will adjust binders and vitamin D per protocol and continue to provide dietary education. On binder, Ca borderline as is PTH. Re-check today. Cardiovascular Assessment Blood pressures reviewed and are acceptable. Intradialytic weight gains are too high. Estimated dry weight is appropriate. Discussed fluid restriction and ways to track fluid today and importance of lower IDWG to protect heart again today. Keeping himself busy is best way he has found to restrict fluid intake and he is making attempts at doing this. Transplant Status: Patient is not a candidate. Weight, co-morbidities, age Resuscitation Status Lower IDWG's discussed again today Stable dialysis otherwise with no changes to prescription Monthly labs being drawn today, will review when available and discuss with patient mid month when [place] back Ernie Pompa MD [ Signed And locked electronically On 04/22/2020 at 11:53:25 AM ] Transcribed: Ernie Pompa ( 04/22/2020 ) documented in this encounter Plan of Treatment Not on filedocumented as of this encounter Visit Diagnoses Not on filedocumented in this encounter
--- OUTSIDE RECORDS SUMMARY | 2021-10-27 05:44 | XMS_ITS | Encounter Summary ---
:1945 Author Organization [facility] Address [address] [place] [address] Care Team Providers Name Role Phone Unavailable Primary Care Provider Unavailable Encounter Details Date Type Department Care Team Description 07/01/2020 Treatment [facility] Ernie Guzmán MD [address] [place] [address] [place], [place] [phone] (Wo rk) Social History Tobacco Use Types Packs/Day Years Used Date Smoking Tobacco: Unknown Comments: Smoking History Info:Patient n ot screened Sex Assigned at Date Recorded Not on file documented as of this encounter Miscellaneous Notes Dialysis Note - Ernie Pompa MD - 07/01/2020 11:18 AM CDT Date: Jul 01, 2020 Patient Name: Shaun Ocampo : 1945 Chart #: [id number] Sex: M This patient was personally seen for a complete visit as part of routine monthly dialysis care. A review of the dialysis treatment, blood pressure, estimated dry weight and recent lab values was made. These were discussed with the patient and staff as necessary. Treatment Data for 07/01/2020 started at:9:12 AM Dialyzer: 180NRe Optiflux Na: 138 mEq/L Bicarb: 30 mEq/L Dialysate: 2.0 K, 2.25 Ca, 1.0 Mg, 100 Dextrose (G2231) Dialysate/Machine Temp (prescribed): 37 C Dialysate/Machine Temp (actual): 37 C BFR (prescribed): 500 BFR (actual): 500 Prescribed time: 04:00 EDW: 107 kg Access Type: Active (In Use):AVFistula-Standard/Left Upper Arm Pre Dialysis Vitals (for 07/01/2020 9:07 AM ) Pre BP (sit): 158/69 Pre Wt: 114.2 kg Temp: 97.9 F Post Dialysis Vitals (for 06/29/2020 1:14 PM ) Post BP (sit): 121/55 Post Wt: 111 kg Current Dialysis Vitals (for 07/01/2020 10:31 AM ) BP (sit): 115/74 AP(-) / DUMP TRUCK DRIVER: 251/198 Pulse: 66 Chairside data as of 07/01/2020 10:31 AM Last 3 Treatments 06/29/2020 06/26/2020 06/24/2020 EDW (kg) 107 107 107 Weight Pre (kg) 115.1 114.9 114.1 Weight Post (kg) 111 110.5 110.1 Dialytic Weight Loss (kg) -4.1 -4.4 -4 EDW Deviation (kg) 4 3.5 3.1 BP Sit Pre 156/70 115/46 146/54 BP Sit Post 121/55 124/60 135/58 UF Rate (mL/kg/hr) 10 10 9 Prescribed BFR 500 500 500 Average Delivered BFR 500 480 510 Prescribed Treatment Time 04:00 04:00 04:00 Actual Treatment Time 04:00 04:03 04:01 Last 3 Values 06/26/2020 05/29/2020 05/01/2020 Access [...] 1X Week During Dialysis 10/28/2019 10/19/2020 Mircera 30 mcg IVP Every 2 weeks During Dialysis 06/24/2020 06/23/2021 PEST TECHNICIAN: Ernie Pompa MD LOCATION: [phone] SCHEDULE: M-W-F 2nd Shift EDW: kg. DIALYZER: HD DURATION: NEEDLE SIZE: ANTICOAG: BATH: QB: ml/min QD: ml/min Subjective Tolerating dialysis well. 07/01: Doing well, feels great. Big problem is fluid gains, discussed in great detail again today. 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 06/10: Doing well overall, no new complaints, [...] Went to Urgent care -> ER in [place] yesterday,CT with R hydro but no obstructive [...] He had infiltration last week, dialyzed at [facility] on Sat and went well, [...] murmur heard. Edema - 1+ leg edema. a little worse, ongoing chronic stasis changes Access - AVF intact [...] (06/24/20) 1.94 (05/20/20) 1.95 (04/22/20) 2.03 (03/25/20) 1.87 (01/01/20) eKdrt/V 1.61 (06/24/20) 1.68 (05/20/20) 1.69 (04/22/20) 1.76 (03/25/20) 1.62 (01/01/20) spKt/V (Daugirdas II) 1.7800 (06/24/20) 1.8400 (05/20/20) 1.8600 (04/22/20) 1.9100 (03/25/20) 1.7600 (02/19/20) Dialysis is adequate. Achieves prescribed time - Yes Achieves prescribed frequency - Yes Continue current prescription. Vascular Access Assessment Type of access: Qqqqzew62/2019 Surgeon - Lary KUMARW Access working well Anemia Assessment HEMOGLOBIN (G/DL) IN BLOOD g/dL 9.9 (06/24/20) 9.9 (06/17/20) 9.6 (06/10/20) 10.1 (06/03/20) 10.0 (05/27/20) PLATELETS 1000/mcL 153 (06/24/20) 196 (05/20/20) 192 [...] at goal. Intact PTH is above goal. Tunnel Kiln Repairer will adjust binders and vitamin D per protocol and continue to provide dietary education. He will start calcitriol 0.25mcg on MWF, has home supply so he will take on his own Cardiovascular Assessment Blood pressures reviewed and are [...] age Resuscitation Status Lower IDWG's discussed again today, may need longer time on dialysis. Schedule UF run extra at [place] when available. Hold Hep day before and after Urology procedure next month, discussed with RN Re-start low dose calcitriol Ernie Pompa MD [ Signed And locked electronically On 07/01/2020 at 11:21:50 AM ] Transcribed: Ernie Pompa ( 07/01/2020 ) documented in this encounter Plan of Treatment Not on filedocumented as of this encounter Visit Diagnoses Not on filedocumented in this encounter
--- OUTSIDE RECORDS SUMMARY | 2021-10-27 05:44 | XMS_ITS | Encounter Summary ---
:1945 Author Organization [facility] Address [address] [place] [address] Care Team Providers Name Role Phone Unavailable Primary Care Provider Unavailable Encounter Details Date Type Department Care Team Description 06/24/2020 Orders Only [facility] O f Ernie Guzmán MD [phone] [place] [address] [place], [place] [phone] (Wo rk) Social History Tobacco Use Types Packs/Day Years Used Date Smoking Tobacco: Unknown Comments: Smoking History Info:Patient n ot screened Sex Assigned at Date Recorded Not on file documented as of this encounter Plan of Treatment Not on filedocumented as of this encounter Procedures Procedure Name Priority Date/Time Associated Diagnosis Comme nts HD KINETICS Routine 06/24/2020 Results for thi s procedure are i n the results section . POST CHEMISTRY Routine 06/24/2020 Results for t his procedure are i n the results section . IMMUNO CHEMISTRY Routine 06/24/2020 Results for this procedure are i n the results section . HEMATOLOGY Routine 06/24/2020 Results for thi s procedure are i n the results section . CHEMISTRY Routine 06/24/2020 Results for thi s procedure are i n the results section . CHEMISTRY Routine 06/24/2020 Results for thi s procedure are i n the results section . SPECTRA [facility] LAB RESULTS Routine 06/24/2020 Resul ts for this procedure are i n the results section . documented in this encounter Results Spectra [facility] Lab Results (06/24/2020) P athologist Signature spKt/V 1.78 KAMEORN (Daugirdas II) eKt/V 1.55 [facility] ([place]) nPCR_HD 1.14 [facility] spKt/V Gotch 1.86 [facility] PCR 75.48 [facility] eKdrt/V 1.61 [facility] eKt/V Gotch 1.61 [facility] eNPCR 1.07 [facility] Specimen (Source) Anatomical Location Collection Method / Collectio n Time Received Time / Laterality Volume 06/24/2020 06/24/2020 [facility] Ordering Provider LAB BLOOD ORDERABLES Performing Organization Address City/State/ZIP Code Phon e Number [facility] (ABNORMAL) Spectrae Chemistry (06/24/2020) P athologist Signature PTH 807 (H) 16 - 80 APS SPECTRA pg/mL [facility] Specimen (Source) Anatomical Collection Method Collection Time Re ceived Time Location / / Volume Laterality 06/24/2020 06/25/2020 8:14 PM CDT Narrative APS SPECTRA [facility] - 06/26/2020 Unless otherwise specified, test(s) performed at: [facility], [address] [place] [address] BOILER WELDER: Alec Payan M.D. For any questions, please call customer service at FREQUENCY:MONTHLY Resulting Agency Comment Specimen source: Plasma Ernie Pompa MD LAB BLOOD ORDERABLES Performing Organization Address City/[facility]/ZIP [facility] Phon e Number APS SPECTRA [facility] HD KINETICS (06/24/2020) athologist Signature % Urea 78 65 - 80 % [facility]PS [facility]PECTRA Reduction [facility] Specimen (Source) Anatomical Collection Method Collection Time Re ceived Time Location / / Volume Laterality 06/24/2020 06/25/2020 6:03 PM CDT Resulting Agency Comment Specimen source: Plasma Ernie Pompa MD LAB BLOOD ORDERABLES Performing Organization Address City/[facility]/ZIP Code Phon e Number [facility]PS SPECTRA [facility] POST CHEMISTRY (06/24/2020) athologist Signature BUN Post 13 6 - 19 APS SPECTRA Dialysis mg/dL [facility] Specimen (Source) Anatomical Collection Method Collection Time Re ceived Time Location / / Volume Laterality 06/24/2020 06/25/2020 6:03 PM CDT Narrative APS SPECTRA [facility] - 06/25/2020 Unless otherwise specified, test(s) performed at: [facility], [address] [place], [place] [id number] BOILER WELDER: Alec Payan M.D. For any questions, please call customer service at FREQUENCY:MONTHLY Resulting Agency Comment Specimen source: Plasma Ernie Pompa MD LAB BLOOD ORDERABLES Performing Organization Address City/[facility] Phon e Number APS SPECTRA [facility] (ABNORMAL) HEMATOLOGY (06/24/2020) Analysis Performed At Patho logist Time Signature WBC 5.98 4.80 - APS SPECTRA 10.80 [facility] 1000/mcL RBC 2.71 (L) 4.70 - APS SPECTRA 6.10 [facility] mill/mcL Hemoglobin 9.9 (L) 14.0 - APS SPECTRA 18.0 g/dL [facility] Hemoglobin x 3 29.7 (L) 42.0 - APS [facility]RA 54.0 % [facility] Hematocrit 29.8 (L) 42.0 - APS [facility]RA 52.0 % [facility] MCV 110 (H) 80 - 100 APS SPECTRA fl [facility] MCH 36.5 (H) 27.0 - [facility]PS [facility]RA 31.0 pg [facility] MCHC 33.2 30.0 - APS SPECTRA 36.0 g/dL [facility] RDW 15.1 (H) 11.5 - APS [facility]RA 14.5 % [facility] Platelets 153 130 - 400 APS SPECTRA 1000/mcL [facility] Specimen (Source) Anatomical Collection Method Collection Time Re ceived Time Location / / Volume Laterality 06/24/2020 06/25/2020 8:14 PM CDT Narrative APS SPECTRA [facility] - 06/26/2020 Unless otherwise specified, test(s) performed at: [facility], [address] [place] [address] BOILER WELDER: Alec Payan M.D. For any questions, please call customer service at FREQUENCY:MONTHLY Resulting Agency Comment Specimen source: Blood Ernie Pompa MD LAB BLOOD ORDERABLES Performing Organization Address City/[facility] Phon e Number APS SPECTRA [facility] IMMUNO CHEMISTRY (06/24/2020) P athologist Signature Hep B Surface Negative Negative APS SPECTRA Ag [facility] Specimen (Source) Anatomical Collection Method Collection Time Re ceived Time Location / / Volume Laterality 06/24/2020 06/25/2020 1:07 PM CDT Resulting Agency Comment Specimen source: Serum Ernie Pompa MD LAB BLOOD ORDERABLES Performing Organization Address City/State/ZIP Code Phon e Number APS SPECTRA [facility] (ABNORMAL) Spectrae Chemistry (06/24/2020) [facility] Method Time Signature Ferritin 951 (H) 22 - 322 APS SPECTRA ng/mL [facility] BUN 58 (H) 6 - 19 APS SPECTRA mg/dL [facility] Creatinine 6.35 (H) 0.60 - APS SPECTRA 1.30 mg/dL [facility] BUN/Creatinine 9.1 (L) 10.0 - APS SPECTRA Ratio 20.0 [facility] Sodium 137 136 - 145 APS SPECTRA mEq/L [facility] Potassium 4.5 3.5 - 5.1 APS SPECTRA mEq/L [facility] Chloride 99 96 - 108 APS [facility]RA mEq/L [facility] Bicarbonate 24 22 - 29 APS SPECTRA (CO2) mEq/L [facility] Calcium 8.8 8.4 - 10.2 APS SPECTRA mg/dL [facility] Corrected 9.0 8.4 - 10.2 APS SPECTRA Calcium mg/dL [facility] Comment: Corrected Calcium is not equivalent to m easured Ionized Calcium. Phosphorus 5.5 (H) 2.6 - 4.5 mg/dL APS SPECTRA K [facility] Calcium Phosphorus Product 48 0 - 54 APS SPECTRA [facility] Calcium Phosporus Product, Cor 50 0 - 54 APS SPECTRA [facility] Alkaline Phosphatase 134 (H) 40 - 129 U/L APS SP ECTRA [facility] Total Protein 6.4 6.0 - 8.5 g/dL APS SPECTRA [facility] Albumin 3.8 3.5 - 5.2 g/dL APS SPECTRA [facility] [place] Globulin, Total 2.6 2.0 - 4.0 g/dL APS SPECT RA [facility] A/G Ratio 1.5 1.0 - 2.0 APS SPECTRA [facility] Magnesium 2.0 1.6 - 2.6 mg/dL APS SPECTRA [facility] Iron 87 45 - 160 mcg/dL APS SPECTRA [place] [facility] UIBC 183 155 - 355 mcg/dL APS SPECTRA K [facility] TIBC 270 185 - 515 mcg/dL APS SPECTRA K [facility] Iron Saturation (TSat) 32 20 - 55 % APS SPE CTRA [facility] Specimen (Source) Anatomical Collection Method Collection Time Re ceived Time Location / / Volume Laterality 06/24/2020 06/25/2020 1:07 PM CDT Narrative APS ANDREA [facility] - 06/25/2020 Unless otherwise specified, test(s) performed at: [facility], [address] [place] [address] BOILER WELDER: Alec Payan M.D. For any questions, please call customer service at FREQUENCY:MONTHLY Resulting Agency Comment Specimen source: Serum Ernie Pompa MD LAB BLOOD ORDERABLES Performing Organization Address City/State/ZIP Code Phon e Number APS SPECTRA [facility] documented in this encounter Visit Diagnoses Not on filedocumented in this encounter
--- OUTSIDE RECORDS SUMMARY | 2021-10-27 05:44 | XMS_ITS | Encounter Summary ---
:1945 Author Organization [facility] Address [address] [place] [address] Care Team Providers Name Role Phone Unavailable Primary Care Provider Unavailable Encounter Details Date Type Department Care Team Description 06/03/2020 Orders Only [facility] O f Ernie Guzmán MD [address] [place] [address] [place], [place] [phone] (Wo rk) Social History Tobacco Use Types Packs/Day Years Used Date Smoking Tobacco: Unknown Comments: Smoking History Info:Patient n ot screened Sex Assigned at Date Recorded Not on file documented as of this encounter Plan of Treatment Not on filedocumented as of this encounter Procedures Procedure Name Priority Date/Time Associated Diagnosis Comme nts HEMATOLOGY Routine 06/03/2020 Results for thi s procedure are in the resu lts section. documented in this encounter Results (ABNORMAL) HEMATOLOGY (06/03/2020) Analysis Performed At Patho logist Time Signature Hemoglobin 10.1 (L) 14.0 - APS SPECTRA 18.0 g/dL [facility] Hemoglobin x 3 30.3 (L) 42.0 - APS SPECTRA 54.0 % [facility] Specimen (Source) Anatomical Collection Method Collection Time Re ceived Time Location / / Volume Laterality 06/03/2020 06/04/2020 2:55 PM CDT Narrative APS SPECTRA [facility] - 06/04/2020 Unless otherwise specified, test(s) performed at: [facility], [address] [place] [address] SQL APPLICATION DEVELOPER: Alec Payan M.D. For any questions, please call customer service at FREQUENCY:OTHER Resulting Agency Comment Specimen source: Blood Ernie Pompa MD LAB BLOOD ORDERABLES Performing Organization Address City/State/ZIP Code Phon e Number APS SPECTRA [facility] documented in this encounter Visit Diagnoses Not on filedocumented in this encounter
--- OUTSIDE RECORDS SUMMARY | 2021-10-27 05:44 | XMS_ITS | Encounter Summary ---
:1945 Author Organization [facility] Address [address] [place] [address] Care Team Providers Name Role Phone Unavailable Primary Care Provider Unavailable Encounter Details Date Type Department Care Team Description 04/08/2020 Treatment [facility] f Ernie Guzmán MD [address] [place] [address] [place], [place] [phone] (Wo rk) Social History Tobacco Use Types Packs/Day Years Used Date Smoking Tobacco: Unknown Comments: Smoking History Info:Patient n ot screened Sex Assigned at Date Recorded Not on file documented as of this encounter Miscellaneous Notes Dialysis Note - Ernie Pompa MD - 04/08/2020 12:32 PM CST Date: Apr 08, 2020 Patient Name: Shaun Ocampo : 1945 Chart #: [id number] Sex: M This patient was personally seen for a basic visit as part of routine weekly dialysis care. A reviewof the dialysis treatment, blood pressure, estimated dry weight and recent lab values was made. These were discussed with the patient and staff as necessary. Treatment Data for 04/08/2020 started at:9:27 AM Dialyzer: 180NRe Optiflux Na: 138 mEq/L Bicarb: 30 mEq/L Dialysate: 2.0 K, 2.25 Ca, 1.0 Mg, 100 Dextrose (G2231) Dialysate/Machine Temp (prescribed): 37 C Dialysate/Machine Temp (actual): 37 C BFR (prescribed): 500 BFR (actual): 500 Prescribed time: 04:00 EDW: 106.7 kg Access Type: Active (In Use):AVFistula-Standard/Left Upper Arm Pre Dialysis Vitals (for 04/08/2020 9:19 AM ) Pre BP (sit): 158/56 Pre Wt: 113.2 kg Temp: 97.7 F Post Dialysis Vitals (for 04/06/2020 1:22 PM ) Post BP (sit): 134/56 Post Wt: 108.7 kg Current Dialysis Vitals (for 04/08/2020 12:03 PM ) BP (sit): 101/53 AP(-) / SOCIAL WORKER MASTERS: 255/193 Pulse: 70 Chairside data as of 04/08/2020 12:03 PM Last 3 Treatments 04/06/2020 04/03/2020 04/01/2020 EDW (kg) 106.7 106.7 105.7 Weight Pre (kg) 112.7 111.4 112.2 Weight Post (kg) 108.7 107 107.8 Dialytic Weight Loss (kg) -4 -4.4 -4.4 EDW Deviation (kg) 2.0 0.3 2.1 BP Sit Pre 124/66 165/56 138/60 BP Sit Post 134/56 119/49 121/53 UF Rate (mL/kg/hr) 9 10 10 Prescribed BFR 500 500 500 Average Delivered BFR 510 480 510 Prescribed Treatment Time 04:00 04:00 04:00 Actual Treatment Time 04:01 04:01 04:04 Last 3 Values 04/03/2020 02/21/2020 01/24/2020 Access [...] 10/28/2019 10/19/2020 Mircera 30 mcg IVP Every 4 weeks During Dialysis 03/18/2020 03/17/2021 DIXONAC OPERATOR: Ernie Pompa MD LOCATION: [phone] SCHEDULE: M-W- 2nd Shift ACCESS: EDW: kg. DIALYZER: HD DURATION: NEEDLE SIZE: ANTICOAG: BATH: QB: ml/min QD: ml/min Subjective Tolerating dialysis well. Good appetite. Reports no trouble with access. 04/08: Just under a year on dialysis [...] He had infiltration last week, dialyzed at [facility] on Sat and went well, access [...] nl effort Cardiovascular Regular rate. Regular rhythm. No murmur heard. Edema - Trace edema. trace to 1+ in legs, chronic stasis changes Access - AVF intact with needles in place, running on green Medication List Medication Sig Start Date albuterol [...] no changes were made. BUN mg/dL 58 (03/25/20) 57 (02/19/20) 70 [...] (02/19/20) 1.7800 (01/22/20) 1.7800 (01/01/20) 1.7400 (11/20/19) HEMOGLOBIN (G/DL) IN BLOOD g/dL 10.1 (04/01/20) 10.4 (03/25/20) 10.7 (03/16/20) 10.6 (03/09/20) 11.4 (03/04/20) PLATELETS 1000/mcL 169 (03/25/20) 190 (02/19/20) 158 (01/22/20) 157 (12/25/19) 194 (11/20/19) IRON SATURATION % 31 (03/25/20) 40 (02/19/20) 48 (01/22/20) 45 (12/25/19) 42 (11/20/19) FERRITIN ng/mL 1040 (03/25/20) 912 (01/29/20) 732 (12/25/19) 844 (09/18/19) 200 (07/29/19) ALBUMIN (G/DL) g/dL 3.9 (03/25/20) 4.0 (02/19/20) 3.6 (01/22/20) Sodium mEq/L 135 (03/25/20) 139 (02/19/20) 135 (01/22/20) POTASSIUM (MMOL/L) IN SER/PLAS mEq/L 4.8 (03/25/20) 5.1 (02/19/20) 4.4 (01/22/20) BICARBONATE (CO2) mEq/L 24 (03/25/20) 19 (02/19/20) 21 (01/22/20) 25 OH VITAMIN D ng/mL 37.9 (03/25/20) 62.4 (09/18/19) 44.4 (05/01/19) BUN/CREATININE (MASS RATIO) IN SER/PLAS 10.2 (03/25/20) 9.3 (02/19/20) 12.9 (01/22/20) Calcium mg/dL 9.9 (03/25/20) 10.0 (02/19/20) 9.7 (01/22/20) Calcium Phos Product 58 (03/25/20) 58 (02/19/20) 62 (01/22/20) CALCIUM (MG/DL) CORRECTED FOR ALBUMIN IN SER/PLAS mg/dL 10.0 (03/25/20) 10.0 (02/19/20) 10.0 (01/22/20) PHOSPHATE (MG/DL) IN SER/PLAS mg/dL 5.9 (03/25/20) 5.8 (02/19/20) 6.4 (01/22/20) IPTH pg/mL 828 (03/25/20) 506 (12/25/19) 167 (09/18/19) Vascular Access Assessment: Type of access: [id number] Surgeon - Lary GARDNER Access working well Impression and Plan No changes, stable dialysis Working on lower IDWG's which has been a major focus Starting Sensipar if can get approved Ernie Pompa MD [ Signed And locked electronically On 04/08/2020 at 12:33:48 PM ] Transcribed: Ernie Pompa ( 04/08/2020 ) documented in this encounter Plan of Treatment Not on filedocumented as of this encounter Visit Diagnoses Not on filedocumented in this encounter
--- OUTSIDE RECORDS SUMMARY | 2021-10-27 05:44 | XMS_ITS | Encounter Summary ---
:1945 Author Organization [facility] Address [address] [place] [address] Care Team Providers Name Role Phone Unavailable Primary Care Provider Unavailable Encounter Details Date Type Department Care Team Description 04/29/2020 Orders Only [facility] f Ernie Guzmán MD [phone] [place] [address] [place], [place] [phone] (Wo rk) Social History Tobacco Use Types Packs/Day Years Used Date Smoking Tobacco: Unknown Comments: Smoking History Info:Patient n ot screened Sex Assigned at Date Recorded Not on file documented as of this encounter Plan of Treatment Not on filedocumented as of this encounter Procedures Procedure Name Priority Date/Time Associated Diagnosis Comme nts HEMATOLOGY Routine 04/29/2020 Results for thi s procedure are in the resu lts section. documented in this encounter Results (ABNORMAL) HEMATOLOGY (04/29/2020) Analysis Performed At Patho logist Time Signature Hemoglobin 9.9 (L) 14.0 - [facility] 18.0 g/dL [facility] Hemoglobin x 3 29.7 (L) 42.0 - [facility] 54.0 % [facility] Specimen (Source) Anatomical Collection Method Collection Time Re ceived Time Location / / Volume Laterality 04/29/2020 05/01/2020 2:20 PM INSPECTORS AND REGULATORY OFFICERS Narrative [facility] - 05/01/2020 Unless otherwise specified, test(s) performed at: [facility], [address] [place] [id number] DIESEL RETROFIT INSTALLER: Alec Payan M.D. For any questions, please call customer service at FREQUENCY:OTHER Resulting Agency Comment Specimen source: Blood Ernie Pompa MD LAB BLOOD ORDERABLES Performing Organization Address City/State/ZIP Code Phon e Number [facility] documented in this encounter Visit Diagnoses Not on filedocumented in this encounter
--- OUTSIDE RECORDS SUMMARY | 2021-10-27 05:44 | XMS_ITS | Encounter Summary ---
:1945 Author Organization [facility] Address [address] [place] [address] Care Team Providers Name Role Phone Unavailable Primary Care Provider Unavailable Encounter Details Date Type Department Care Team Description 09/09/2020 Treatment [facility] f Ernie Guzmán MD [address] [place] [address] [place], [place] [phone] (Wo rk) Social History Tobacco Use Types Packs/Day Years Used Date Smoking Tobacco: Unknown Comments: Smoking History Info:Patient n ot screened Sex Assigned at Date Recorded Not on file documented as of this encounter Miscellaneous Notes Dialysis Note - Ernie Pompa MD - 09/09/2020 10:22 AM CDT Date: Sep 09, 2020 Patient Name: Shaun Ocampo : 1945 Chart #: [id number] Sex: M This patient was personally seen for a basic visit as part of routine weekly dialysis care. A reviewof the dialysis treatment, blood pressure, estimated dry weight and recent lab values was made. These were discussed with the patient and staff as necessary. Treatment Data for 09/09/2020 started at:8:56 AM Dialyzer: 180NRe Optiflux Na: 138 mEq/L Bicarb: 30 mEq/L Dialysate: 2.0 K, 2.25 Ca, 1.0 Mg, 100 Dextrose (G2231) Dialysate/Machine Temp (prescribed): 37 C Dialysate/Machine Temp (actual): 37 C BFR (prescribed): 500 BFR (actual): 500 Prescribed time: 04:00 EDW: 108 kg Access Type: Active (In Use):AVFistula-Standard/Left Upper Arm Pre Dialysis Vitals (for 09/09/2020 8:51 AM ) Pre BP (sit): 153/63 Pre Wt: 113 kg Temp: 97.8 F Post Dialysis Vitals (for 09/07/2020 1:05 PM ) Post BP (sit): 127/59 Post Wt: 110.3 kg Current Dialysis Vitals (for 09/09/2020 10:03 AM ) BP (sit): 116/58 AP(-) / NURSERY LABORER: 242/201 Pulse: 71 Chairside data as of 09/09/2020 10:03 AM Last 3 Treatments 09/07/2020 09/04/2020 09/02/2020 EDW (kg) 108 108 108 Weight Pre (kg) 115.4 112.7 113.4 Weight Post (kg) 110.3 107.9 108.5 Dialytic Weight Loss (kg) -5.1 -4.8 -4.9 EDW Deviation (kg) 2.3 -0.1 0.5 BP Sit Pre 134/66 141/63 140/68 BP Sit Post 127/59 110/53 110/57 UF Rate (mL/kg/hr) 12 11 11 Prescribed BFR 500 500 500 Average Delivered BFR 500 500 500 Prescribed Treatment Time 04:00 04:00 04:00 Actual Treatment Time 04:03 04:02 04:02 Last 3 Values 08/21/2020 07/24/2020 06/26/2020 Access Flow 1772 1359 > 2000 AIR BRAKE MECHANIC: Ernie Pompa MD LOCATION: [place] [phone] SCHEDULE: -- 2nd Shift ACCESS: EDW: kg. DIALYZER: HD DURATION: NEEDLE SIZE: ANTICOAG: BATH: QB: ml/min QD: ml/min Subjective Tolerating dialysis well. 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 06/10: Doing well overall, no new complaints, [...] Went to Urgent care -> ER in [place] yesterday,CT with R hydro but no obstructive [...] He had infiltration last week, dialyzed at [facility] on Sat and went well, access ok [...] Regular rhythm. Edema - 1+ leg edema. a little better Access - AVF intact with needles in [...] and no changes were made. BUN mg/dL 49 (08/19/20) 58 (07/22/20) 58 (06/24/20) 56 (05/20/20) 62 (04/22/20) UREA NITROGEN (MG/DL) IN SER/PLAS - POST DIALYSIS mg/dL 11 (08/19/20) 12 (07/22/20) 13 (06/24/20) 12 (05/20/20) 13 (04/22/20) URR % 78 (08/19/20) 79 (07/22/20) 78 (06/24/20) 79 (05/20/20) 79 (04/22/20) spKt/V Gotch 1.86 (08/19/20) 1.97 (07/22/20) 1.86 (06/24/20) 1.94 (05/20/20) 1.95 (04/22/20) eKdrt/V 1.62 (08/19/20) 1.7 (07/22/20) 1.61 (06/24/20) 1.68 (05/20/20) 1.69 (04/22/20) spKt/V (Daugirdas II) 1.7800 (08/19/20) 1.8700 (07/22/20) 1.7800 (06/24/20) 1.8400 (05/20/20) 1.8600 (04/22/20) HEMOGLOBIN (G/DL) IN BLOOD g/dL 10.0 (09/02/20) 9.3 (08/26/20) 9.6 (08/19/20) 9.1 (08/12/20) 9.9 (08/05/20) PLATELETS 1000/mcL 147 (08/19/20) 152 (07/22/20) 153 (06/24/20) 196 (05/20/20) 192 (04/22/20) IRON SATURATION % 36 (08/19/20) 26 (07/22/20) 32 (06/24/20) 33 (05/20/20) 32 (04/22/20) FERRITIN ng/mL 951 (06/24/20) 1040 (03/25/20) 912 (01/29/20) 732 (12/25/19) 844 (09/18/19) ALBUMIN (G/DL) g/dL 3.9 (08/19/20) 4.0 (07/22/20) 3.8 (06/24/20) Sodium mEq/L 138 (08/19/20) 137 (07/22/20) 137 (06/24/20) POTASSIUM (MMOL/L) IN SER/PLAS mEq/L 5.5 (08/19/20) 4.2 (07/22/20) 4.5 (06/24/20) BICARBONATE (CO2) mEq/L 23 (08/19/20) 25 (07/22/20) 24 (06/24/20) 25 OH VITAMIN D ng/mL 37.9 (03/25/20) 62.4 (09/18/19) 44.4 (05/01/19) BUN/CREATININE (MASS RATIO) IN SER/PLAS 8.6 (08/19/20) 9.3 (07/22/20) 9.1 (06/24/20) Calcium mg/dL 9.5 (08/19/20) 8.9 (07/22/20) 8.8 (06/24/20) Calcium Phos Product 48 (08/19/20) 55 (07/22/20) 48 (06/24/20) CALCIUM (MG/DL) CORRECTED FOR ALBUMIN IN SER/PLAS mg/dL 9.6 (08/19/20) 8.9 (07/22/20) 9.0 (06/24/20) PHOSPHATE (MG/DL) IN SER/PLAS mg/dL 5.1 (08/19/20) 6.2 (07/22/20) 5.5 (06/24/20) IPTH pg/mL 696 (08/19/20) 1020 (07/22/20) 807 (06/24/20) Vascular Access Assessment: Type of access: [id number] Surgeon - Lary GARDNER Access working well Impression and Plan No changes in prescription Discussed fluid gains again, may need occasional extra treatment for UF to avoid fluid overload but currently is at or very near EDW PTH improved, phos controlled, monitor without changes Ernie Pompa MD [ Signed And locked electronically On 09/09/2020 at 10:25:06 AM ] Transcribed: Ernie Pompa ( 09/09/2020 ) documented in this encounter Plan of Treatment Not on filedocumented as of this encounter Visit Diagnoses Not on filedocumented in this encounter
--- OUTSIDE RECORDS SUMMARY | 2021-10-27 05:44 | XMS_ITS | Encounter Summary ---
:1945 Author Organization [facility] Address [address] [place] [address] Care Team Providers Name Role Phone Unavailable Primary Care Provider Unavailable Encounter Details Date Type Department Care Team Description 07/08/2020 Treatment [facility] O Ernie Gómez MD [address] [place] [address] [place], [place] [phone] (Wo rk) Social History Tobacco Use Types Packs/Day Years Used Date Smoking Tobacco: Unknown Comments: Smoking History Info:Patient n ot screened Sex Assigned at Date Recorded Not on file documented as of this encounter Miscellaneous Notes Dialysis Note - Ernie Pompa MD - 07/08/2020 9:33 AM CDT Date: Jul 08, 2020 Patient Name: Shaun Ocampo : 1945 Chart #: [id number] Sex: M This patient was personally seen for a basic visit as part of routine weekly dialysis care. A reviewof the dialysis treatment, blood pressure, estimated dry weight and recent lab values was made. These were discussed with the patient and staff as necessary. Treatment Data for 07/08/2020 started at:9:16 AM Dialyzer: 180NRe Optiflux Na: 138 mEq/L Bicarb: 30 mEq/L Dialysate: 2.0 K, 2.25 Ca, 1.0 Mg, 100 Dextrose (G2231) Dialysate/Machine Temp (prescribed): 37 C Dialysate/Machine Temp (actual): 37.1 C BFR (prescribed): 500 BFR (actual): n/a Prescribed time: 04:00 EDW: 107 kg Access Type: Active (In Use):AVFistula-Standard/Left Upper Arm Pre Dialysis Vitals (for 07/08/2020 9:00 AM ) Pre BP (sit): 143/65 Pre Wt: 114.4 kg Temp: 97.2 F Post Dialysis Vitals (for 07/06/2020 1:12 PM ) Post BP (sit): 119/70 Post Wt: 111 kg Chairside data as of 07/08/2020 9:00 AM Last 3 Treatments 07/06/2020 07/03/2020 07/01/2020 EDW (kg) 107 107 107 Weight Pre (kg) 115 113.3 114.2 Weight Post (kg) 111 109.2 111.2 Dialytic Weight Loss (kg) -4 -4.1 -3 EDW Deviation (kg) 4 2.2 4.2 BP Sit Pre 152/78 149/83 158/69 BP Sit Post 119/70 133/52 128/70 UF Rate (mL/kg/hr) 9 10 7 Prescribed BFR 500 500 500 Average Delivered BFR 490 500 500 Prescribed Treatment Time 04:00 04:00 04:00 Actual Treatment Time 04:03 04:02 04:01 Last 3 Values 06/26/2020 05/29/2020 05/01/2020 Access Flow > 1999 > 1999 > 1999 SCALE CLERK: Ernie Pompa MD LOCATION: [place] [phone] SCHEDULE: 2nd Shift ACCESS: EDW: kg. DIALYZER: HD DURATION: NEEDLE SIZE: ANTICOAG: BATH: QB: ml/min QD: ml/min Subjective Tolerating dialysis well. 07/08: 3.4 Kg gain today, ?7 available, ok with staying extra 30 min on Monday if he feels well for additional UF. He has no SOB. Chronic edema. 07/01: Doing well, feels great. Big problem is fluid gains, discussed in great detail again today. 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 06/10: Doing well overall, no new complaints, [...] Went to Urgent care -> ER in [place] yesterday,CT with R hydro but no obstructive [...] had infiltration last week, dialyzed at [facility] on Sat and went well, access [...] no changes were made. BUN mg/dL 58 (06/24/20) 56 (05/20/20) 62 [...] (05/20/20) 1.8600 (04/22/20) 1.9100 (03/25/20) 1.7600 (02/19/20) HEMOGLOBIN (G/DL) IN BLOOD g/dL 9.6 (07/01/20) 9.9 (06/24/20) 9.9 (06/17/20) 9.6 (06/10/20) 10.1 (06/03/20) PLATELETS 1000/mcL 153 (06/24/20) 196 (05/20/20) 192 (04/22/20) 169 (03/25/20) 190 (02/19/20) IRON SATURATION % 32 (06/24/20) 33 (05/20/20) 32 (04/22/20) 31 (03/25/20) 40 (02/19/20) FERRITIN ng/mL 951 (06/24/20) 1040 (03/25/20) 912 (01/29/20) 732 (12/25/19) 844 (09/18/19) ALBUMIN (G/DL) g/dL 3.8 (06/24/20) 3.8 (05/20/20) 3.9 (04/22/20) Sodium mEq/L 137 (06/24/20) 134 (05/20/20) 137 (04/22/20) POTASSIUM (MMOL/L) IN SER/PLAS mEq/L 4.5 (06/24/20) 5.1 (05/20/20) 4.2 (04/22/20) BICARBONATE (CO2) mEq/L 24 (06/24/20) 24 (05/20/20) 24 (04/22/20) 25 OH VITAMIN D ng/mL 37.9 (03/25/20) 62.4 (09/18/19) 44.4 (05/01/19) BUN/CREATININE (MASS RATIO) IN SER/PLAS 9.1 (06/24/20) 9.5 (05/20/20) 10.6 (04/22/20) Calcium mg/dL 8.8 (06/24/20) 9.5 (05/20/20) 9.3 (04/22/20) Calcium Phos Product 48 (06/24/20) 59 (05/20/20) 53 (04/22/20) CALCIUM (MG/DL) CORRECTED FOR ALBUMIN IN SER/PLAS mg/dL 9.0 (06/24/20) 9.7 (05/20/20) 9.4 (04/22/20) PHOSPHATE (MG/DL) IN SER/PLAS mg/dL 5.5 (06/24/20) 6.2 (05/20/20) 5.7 (04/22/20) IPTH pg/mL 807 (06/24/20) 952 (05/20/20) 1004 (04/22/20) Vascular Access Assessment: Type of access: [id number] Surgeon - Lary GARDNER Access working well Impression and Plan No changes in prescription Extra 30 min UF on Monday May need to increase time on HD if can't reduce IDWG's, have spent much time counseling on this He is taking calcitriol tiw now, has home supply he is taking Ernie Pompa MD [ Signed And locked electronically On 07/08/2020 at 09:35:17 AM ] Transcribed: Ernie Pompa ( 07/08/2020 ) documented in this encounter Plan of Treatment Not on filedocumented as of this encounter Visit Diagnoses Not on filedocumented in this encounter
--- OUTSIDE RECORDS SUMMARY | 2021-10-27 05:44 | XMS_ITS | Encounter Summary ---
:1945 Author Organization [facility] Address [address] [place] [address] Care Team Providers Name Role Phone Unavailable Primary Care Provider Unavailable Encounter Details Date Type Department Care Team Description 06/10/2020 Treatment [facility] O Ernie Gómez MD [address] [place] [address] [place], [place] [phone] (Wo rk) Social History Tobacco Use Types Packs/Day Years Used Date Smoking Tobacco: Unknown Comments: Smoking History Info:Patient n ot screened Sex Assigned at Date Recorded Not on file documented as of this encounter Miscellaneous Notes Dialysis Note - Ernie Pompa MD - 06/10/2020 11:04 AM CDT Date: Jun 10, 2020 Patient Name: Shaun Ocampo : 1945 Chart #: [id number] Sex: M This patient was personally seen for a basic visit as part of routine weekly dialysis care. A reviewof the dialysis treatment, blood pressure, estimated dry weight and recent lab values was made. These were discussed with the patient and staff as necessary. Treatment Data for 06/10/2020 started at:9:17 AM Dialyzer: 180NRe Optiflux Na: 138 mEq/L Bicarb: 30 mEq/L Dialysate: 2.0 K, 2.25 Ca, 1.0 Mg, 100 Dextrose (G2231) Dialysate/Machine Temp (prescribed): 37 C Dialysate/Machine Temp (actual): 37 C BFR (prescribed): 500 BFR (actual): 450 Prescribed time: 04:00 EDW: 107 kg Access Type: Active (In Use):AVFistula-Standard/Left Upper Arm Pre Dialysis Vitals (for 06/10/2020 9:01 AM ) Pre BP (sit): 133/62 Pre Wt: 113 kg Temp: 97.8 F Post Dialysis Vitals (for 06/08/2020 1:15 PM ) Post BP (sit): 118/52 Post Wt: 109.2 kg Current Dialysis Vitals (for 06/10/2020 10:01 AM ) BP (sit): 120/54 AP(-) / TODDLER NANNY: 219/180 Pulse: 69 Chairside data as of 06/10/2020 10:01 AM Last 3 Treatments 06/08/2020 06/05/2020 06/03/2020 EDW (kg) 107 107 107 Weight Pre (kg) 114 112.1 112.6 Weight Post (kg) 109.2 107.7 108.5 Dialytic Weight Loss (kg) -4.8 -4.4 -4.1 EDW Deviation (kg) 2.2 0.7 1.5 BP Sit Pre 144/64 144/64 137/64 BP Sit Post 118/52 102/52 124/59 UF Rate (mL/kg/hr) 11 10 10 Prescribed BFR 500 500 500 Average Delivered BFR 510 510 450 Prescribed Treatment Time 04:00 04:00 04:00 Actual Treatment Time 04:01 04:02 04:02 Last 3 Values 05/29/2020 05/01/2020 04/24/2020 Access Flow > 2000 > 2000 > [...] Every 4 weeks During Dialysis 04/15/2020 04/14/2021 CURB MACHINE OPERATOR: Ernie Pompa MD LOCATION: [phone] SCHEDULE: M-W-F 2nd Shift ACCESS: EDW: kg. DIALYZER: HD DURATION: NEEDLE SIZE: ANTICOAG: BATH: QB: ml/min QD: ml/min Subjective Tolerating dialysis well. 06/10: Doing well overall, no new complaints, [...] Went to Urgent care -> ER in [place] yesterday,CT with R hydro but no [...] He had infiltration last week, dialyzed at [facility] on Sat and went well, access ok [...] No murmur heard. Edema - Trace edema. to 1+, slightly worse Access - AVF intact with needles in [...] and no changes were made. BUN mg/dL 56 (05/20/20) 62 (04/22/20) 58 (03/25/20) 57 (02/19/20) 70 (01/22/20) UREA NITROGEN (MG/DL) IN SER/PLAS - POST DIALYSIS mg/dL 12 (05/20/20) 13 (04/22/20) 12 (03/25/20) 13 (02/19/20) 16 (01/22/20) URR % 79 (05/20/20) 79 (04/22/20) 79 (03/25/20) 77 (02/19/20) 77 (01/22/20) spKt/V Gotch 1.94 (05/20/20) 1.95 (04/22/20) 2.03 (03/25/20) 1.87 (01/01/20) 1.83 (11/20/19) eKdrt/V 1.68 (05/20/20) 1.69 (04/22/20) 1.76 (03/25/20) 1.62 (01/01/20) 1.59 (11/20/19) spKt/V (Daugirdas II) 1.8400 (05/20/20) 1.8600 (04/22/20) 1.9100 (03/25/20) 1.7600 (02/19/20) 1.7800 (01/22/20) HEMOGLOBIN (G/DL) IN BLOOD g/dL 10.1 (06/03/20) 10.0 (05/27/20) 9.9 (05/20/20) 10.1 (05/13/20) 10.3 (05/06/20) PLATELETS 1000/mcL 196 (05/20/20) 192 (04/22/20) 169 (03/25/20) 190 (02/19/20) 158 (01/22/20) IRON SATURATION % 33 (05/20/20) 32 (04/22/20) 31 (03/25/20) 40 (02/19/20) 48 (01/22/20) FERRITIN ng/mL 1040 (03/25/20) 912 (01/29/20) 732 (12/25/19) 844 (09/18/19) 200 (07/29/19) ALBUMIN (G/DL) g/dL 3.8 (05/20/20) 3.9 (04/22/20) 3.9 (03/25/20) Sodium mEq/L 134 (05/20/20) 137 (04/22/20) 135 (03/25/20) POTASSIUM (MMOL/L) IN SER/PLAS mEq/L 5.1 (05/20/20) 4.2 (04/22/20) 4.8 (03/25/20) BICARBONATE (CO2) mEq/L 24 (05/20/20) 24 (04/22/20) 24 (03/25/20) 25 OH VITAMIN D ng/mL 37.9 (03/25/20) 62.4 (09/18/19) 44.4 (05/01/19) BUN/CREATININE (MASS RATIO) IN SER/PLAS 9.5 (05/20/20) 10.6 (04/22/20) 10.2 (03/25/20) Calcium mg/dL 9.5 (05/20/20) 9.3 (04/22/20) 9.9 (03/25/20) Calcium Phos Product 59 (05/20/20) 53 (04/22/20) 58 (03/25/20) CALCIUM (MG/DL) CORRECTED FOR ALBUMIN IN SER/PLAS mg/dL 9.7 (05/20/20) 9.4 (04/22/20) 10.0 (03/25/20) PHOSPHATE (MG/DL) IN SER/PLAS mg/dL 6.2 (05/20/20) 5.7 (04/22/20) 5.9 (03/25/20) IPTH pg/mL 952 (05/20/20) 1004 (04/22/20) 828 (03/25/20) Vascular Access Assessment: Type of access: [id number] Surgeon - Lary GARDNER Access working well Impression and Plan No changes, stable dialysis Follow-up with Dr. Hernandez given gross hematuria, cysto was clear but CT Urogram showed possible spot distal ureter/bladder and needs ureteroscopy with biopsy after I discussed with Dr. Hernandez IDWG's discussed in detail today, strategies to reduce fluid intake despite thirst. Discussed possible need to increase time if can't maintain dry weight Ernie Pompa MD [ Signed And locked electronically On 06/10/2020 at 11:06:45 AM ] Transcribed: Ernie Pompa ( 06/10/2020 ) documented in this encounter Plan of Treatment Not on filedocumented as of this encounter Visit Diagnoses Not on filedocumented in this encounter
--- OUTSIDE RECORDS SUMMARY | 2021-10-27 05:44 | XMS_ITS | Encounter Summary ---
:1945 Author Organization [facility] Address [address] [place] [address] Care Team Providers Name Role Phone Unavailable Primary Care Provider Unavailable Encounter Details Date Type Department Care Team Description 09/09/2020 Orders Only [facility] O f Ernie Guzmán MD [phone] [place] [address] [place], [place] [phone] (Wo rk) Social History Tobacco Use Types Packs/Day Years Used Date Smoking Tobacco: Unknown Comments: Smoking History Info:Patient n ot screened Sex Assigned at Date Recorded Not on file documented as of this encounter Plan of Treatment Not on filedocumented as of this encounter Procedures Procedure Name Priority Date/Time Associated Diagnosis Comme nts HEMATOLOGY Routine 09/09/2020 Results for thi s procedure are in the resu lts section. documented in this encounter Results (ABNORMAL) HEMATOLOGY (09/09/2020) Analysis Performed At Patho logist Time Signature Hemoglobin 9.8 (L) 14.0 - [facility] 18.0 g/dL [facility] Hemoglobin x 3 29.4 (L) 42.0 - [facility] 54.0 % [facility] Specimen (Source) Anatomical Collection Method Collection Time Re ceived Time Location / / Volume Laterality 09/09/2020 09/11/2020 6:58 AM CDT Narrative [facility] - 09/11/2020 Unless otherwise specified, test(s) performed at: [facility], [address] [place] [id number] WOOD CALKER: Alec Payan M.D. For any questions, please call customer service at FREQUENCY:OTHER Resulting Agency Comment Specimen source: Blood Ernie Pompa MD LAB BLOOD ORDERABLES Performing Organization Address City/State/ZIP Code Phon e Number [facility] documented in this encounter Visit Diagnoses Not on filedocumented in this encounter
--- OUTSIDE RECORDS SUMMARY | 2021-10-27 05:44 | XMS_ITS | Encounter Summary ---
:1945 Author Organization [facility] Address [address] [place] [address] Care Team Providers Name Role Phone Unavailable Primary Care Provider Unavailable Encounter Details Date Type Department Care Team Description 07/08/2020 Orders Only [facility] O f Ernie Guzmán MD [phone] [place] [address] [place], [place] [phone] (Wo rk) Social History Tobacco Use Types Packs/Day Years Used Date Smoking Tobacco: Unknown Comments: Smoking History Info:Patient n ot screened Sex Assigned at Date Recorded Not on file documented as of this encounter Plan of Treatment Not on filedocumented as of this encounter Procedures Procedure Name Priority Date/Time Associated Diagnosis Comme nts HEMATOLOGY Routine 07/08/2020 Results for thi s procedure are in the resu lts section. documented in this encounter Results (ABNORMAL) HEMATOLOGY (07/08/2020) Analysis Performed At Patho logist Time Signature Hemoglobin 10.1 (L) 14.0 - [facility] 18.0 g/dL [facility] Hemoglobin x 3 30.3 (L) 42.0 - [facility] 54.0 % [facility] Specimen (Source) Anatomical Collection Method Collection Time Re ceived Time Location / / Volume Laterality 07/08/2020 07/09/2020 1:29 PM CDT Narrative [facility] - 07/09/2020 Unless otherwise specified, test(s) performed at: [facility], [address] [place] [address] TRIAL LAWYER: Alec Payan M.D. For any questions, please call customer service at FREQUENCY:OTHER Resulting Agency Comment Specimen source: Blood Ernie Pompa MD LAB BLOOD ORDERABLES Performing Organization Address City/State/ZIP Code Phon e Number [facility] documented in this encounter Visit Diagnoses Not on filedocumented in this encounter
--- OUTSIDE RECORDS SUMMARY | 2021-10-27 05:44 | XMS_ITS | Encounter Summary ---
:1945 Author Organization [facility] Address [address] [place] [address] Care Team Providers Name Role Phone Unavailable Primary Care Provider Unavailable Encounter Details Date Type Department Care Team Description 09/23/2020 Orders Only [facility] O f Ernie Guzmán MD [phone] [place] [address] [place], [place] [phone] (Wo rk) Social History Tobacco Use Types Packs/Day Years Used Date Smoking Tobacco: Unknown Comments: Smoking History Info:Patient n ot screened Sex Assigned at Date Recorded Not on file documented as of this encounter Plan of Treatment Not on filedocumented as of this encounter Procedures Procedure Name Priority Date/Time Associated Diagnosis Comme nts SPECIAL CHEMISTRY Routine 09/23/2020 Results fo r this procedure are in the resu lts section. IMMUNO CHEMISTRY Routine 09/23/2020 Results for this procedure are in the resu lts section. HEMATOLOGY Routine 09/23/2020 Results for thi s procedure are in the resu lts section. CHEMISTRY Routine 09/23/2020 Results for thi s procedure are in the resu lts section. CHEMISTRY Routine 09/23/2020 Results for thi s procedure are in the resu lts section. documented in this encounter Results (ABNORMAL) [facility] Chemistry (09/23/2020) P athologist Signature PTH 835 (H) 16 - 80 [facility] pg/mL [facility] Specimen (Source) Anatomical Collection Method Collection Time Re ceived Time Location / / Volume Laterality 09/23/2020 09/24/2020 2:36 PM CDT Narrative [facility] - 09/24/2020 Unless otherwise specified, test(s) performed at: [facility], [address] [place] [address] PRESS OPERATOR ASSISTANT: Alec Payan M.D. For any questions, please call customer service at FREQUENCY:MONTHLY Resulting Agency Comment Specimen source: Plasma Ernie Pompa MD LAB BLOOD ORDERABLES Performing Organization Address City/[facility]/ZIP Code Phon e Number [facility] (ABNORMAL) HEMATOLOGY (09/23/2020) Analysis Performed At Patho logist Time Signature WBC 9.38 4.80 - [facility] 10.80 [facility] 1000/mcL RBC 2.83 (L) 4.70 - [facility] 6.10 [facility] mill/mcL Hemoglobin 9.8 (L) 14.0 - [facility] 18.0 g/dL [facility] Hemoglobin x 3 29.4 (L) 42.0 - [facility] 54.0 % [facility] Hematocrit 30.2 (L) 42.0 - [facility] 52.0 % [facility] MCV 107 (H) 80 - 100 [facility] fl [facility] MCH 34.5 (H) 27.0 - [facility] 31.0 pg [facility] MCHC 32.4 30.0 - [facility] 36.0 g/dL [facility] RDW 16.7 (H) 11.5 - [facility] 14.5 % [facility] Platelets 180 130 - 400 [facility] 1000/mcL [facility] Specimen (Source) Anatomical Collection Method Collection Time Re ceived Time Location / / Volume Laterality 09/23/2020 09/24/2020 3:08 PM CDT Narrative [facility] - 09/24/2020 Unless otherwise specified, test(s) performed at: [facility], [address] [place] [address] PRESS OPERATOR ASSISTANT: Alec Payan M.D. For any questions, please call customer service at FREQUENCY:MONTHLY Resulting Agency Comment Specimen source: Blood Ernie Pompa MD LAB BLOOD ORDERABLES Performing Organization Address City/[facility] Phon e Number [facility] IMMUNO CHEMISTRY (09/23/2020) P athologist Signature Hep B Surface Negative Negative [facility] Ag [facility] Specimen (Source) Anatomical Collection Method Collection Time Re ceived Time Location / / Volume Laterality 09/23/2020 09/24/2020 11:3 8 AM CDT Resulting Agency Comment Specimen source: Serum Ernie Pompa MD LAB BLOOD ORDERABLES Performing Organization Address City/State/ZIP Code Phon e Number [facility] SPECIAL CHEMISTRY (09/23/2020) P athologist Signature Vitamin D, 37.9 30.0 - [facility] 25-OH, Total 100.0 [facility] ng/mL Comment: Vitamin D Status Classification: Deficiency ? <10.0 ng/mL Insufficiency ?10.0-30.0 ng/mL Sufficiency ?30.0-100.0 ng/mL Toxicity ? >100.0 ng/mL Specimen (Source) Anatomical Collection Method Collection Time Re ceived Time Location / / Volume Laterality 09/23/2020 09/24/2020 11:3 8 AM CDT Resulting Agency Comment Specimen source: Serum Ernie Pompa MD LAB BLOOD BANK TEST ORDERABL ES Performing Organization Address City/[facility]/ZIP Code Phon e Number [facility] (ABNORMAL) Spectrae Chemistry (09/23/2020) Patholo gist Method Time Signature BUN 50 (H) 6 - 19 [facility] mg/dL [facility] Creatinine 6.48 (H) 0.60 - [facility] 1.30 mg/dL [...] [facility] Calcium Phosphorus Product 50 0 - 54 [facility] Calcium Phosporus Product, Cor 51 0 - 54 [facility] Alkaline Phosphatase 128 40 - 129 U/L APS SP ECTRA [facility] Total Protein 6.9 6.0 - 8.5 g/dL [facility] Albumin 3.7 3.5 - 5.2 g/dL [facility] [place] Globulin, Total 3.2 2.0 - 4.0 g/dL [facility] RA [facility] A/G Ratio 1.2 1.0 - 2.0 [facility] Magnesium 2.0 1.6 - 2.6 mg/dL [facility] Iron 47 45 - 160 mcg/dL [facility] UIBC 185 155 - 355 mcg/dL [facility] TIBC 232 185 - 515 mcg/dL APS [facility] Iron Saturation (TSat) 20 20 - 55 % APS SPE CTRA [facility] Ferritin 1,317 (H) 22 - 322 ng/mL [facility] [place] Specimen (Source) Anatomical Collection Method Collection Time Re ceived Time Location / / Volume Laterality 09/23/2020 09/24/2020 11:3 8 AM CDT Narrative [facility] - 09/24/2020 Unless otherwise specified, test(s) performed at: [facility], [address] [place] [address] PRESS OPERATOR ASSISTANT: Alec Payan M.D. For any questions, please call customer service at FREQUENCY:MONTHLY Resulting Agency Comment Specimen source: Serum Ernie Pompa MD LAB BLOOD ORDERABLES Performing Organization Address City/State/ZIP Code Phon e Number [facility] documented in this encounter Visit Diagnoses Not on filedocumented in this encounter
--- OUTSIDE RECORDS SUMMARY | 2021-10-27 05:44 | XMS_ITS | Encounter Summary ---
:1945 Author Organization [facility] Address [address] [place] [address] Care Team Providers Name Role Phone Unavailable Primary Care Provider Unavailable Encounter Details Date Type Department Care Team Description 04/22/2020 Orders Only [facility] O f Ernie Guzmán MD [phone] [place] [address] [place], [place] [phone] (Wo rk) Social History Tobacco Use Types Packs/Day Years Used Date Smoking Tobacco: Unknown Comments: Smoking History Info:Patient n ot screened Sex Assigned at Date Recorded Not on file documented as of this encounter Plan of Treatment Not on filedocumented as of this encounter Procedures Procedure Name Priority Date/Time Associated Diagnosis Comme nts HD KINETICS Routine 04/22/2020 Results for thi s procedure are i n the results section . POST CHEMISTRY Routine 04/22/2020 Results for t his procedure are i n the results section . IMMUNO CHEMISTRY Routine 04/22/2020 Results for this procedure are i n the results section . HEMATOLOGY Routine 04/22/2020 Results for thi s procedure are i n the results section . CHEMISTRY Routine 04/22/2020 Results for thi s procedure are i n the results section . CHEMISTRY Routine 04/22/2020 Results for thi s procedure are i n the results section . S[facility]RA [facility] LAB RESULTS Routine 04/22/2020 Resul ts for this procedure are i n the results section . documented in this encounter Results Spectra [facility] Lab Results (04/22/2020) P athologist Signature eKt/V 1.63 [facility] ([place]) spKt/V 1.86 [facility] ([place]augirdas II) spKt/V Gotch 1.95 [facility] eNPCR 1.15 [facility] eKdrt/V 1.69 [facility] eKt/V Gotch 1.69 [facility] PCR 82.02 [facility] nPCR_HD 1.23 [facility] Specimen (Source) Anatomical Location Collection Method / Collectio n Time Received Time / Laterality Volume 04/22/2020 04/22/2020 [facility] Ordering Provider LAB BLOOD ORDERABLES Performing Organization Address City/State/ZIP Code Phon e Number [facility] IMMUNO CHEMISTRY (04/22/2020) P athologist Signature Hep B Surface Negative Negative [facility] Ag [facility] Specimen (Source) Anatomical Collection Method Collection Time Re ceived Time Location / / Volume Laterality 04/22/2020 04/23/2020 7:44 PM COMPOSITION STONE APPLICATOR Narrative [facility] - 04/25/2020 Unless otherwise specified, test(s) performed at: [facility], [address] [place] [address] DIESEL MOTOR MECHANIC: Alec Payan M.D. For any questions, please call customer service at FREQUENCY:MONTHLY Resulting Agency Comment Specimen source: Serum Ernie Pompa MD LAB BLOOD ORDERABLES Performing Organization Address City/State/ZIP Code Phon e Number [facility] (ABNORMAL) HEMATOLOGY (04/22/2020) Analysis Performed At Patho logist Time Signature WBC 6.36 4.80 - [facility] 10.80 [facility] 1000/mcL RBC 2.84 (L) 4.70 - [facility] 6.10 [facility] mill/mcL Hemoglobin 10.2 (L) 14.0 - [facility] 18.0 g/dL [facility] Hemoglobin x 3 30.6 (L) 42.0 - [facility] 54.0 % [facility] Hematocrit 29.8 (L) 42.0 - [facility] 52.0 % [facility] MCV 105 (H) 80 - 100 [facility] fl [facility] MCH 35.8 (H) 27.0 - [facility] 31.0 pg [facility] MCHC 34.0 30.0 - [facility] 36.0 g/dL [facility] RDW 14.6 (H) 11.5 - [facility] 14.5 % [facility] Platelets 192 130 - 400 [facility] 1000/mcL [facility] Specimen (Source) Anatomical Collection Method Collection Time Re ceived Time Location / / Volume Laterality 04/22/2020 04/23/2020 3:15 PM COMPOSITION STONE APPLICATOR Narrative [facility] - 04/24/2020 Unless otherwise specified, test(s) performed at: [facility], [address] [place] [address] DIESEL MOTOR MECHANIC: Alec Payan M.D. For any questions, please call customer service at FREQUENCY:MONTHLY Resulting Agency Comment Specimen source: Blood Ernie Pompa MD LAB BLOOD ORDERABLES Performing Organization Address City/[facility] Phon e Number [facility] HD KINETICS (04/22/2020) P athologist Signature % Urea 79 65 - 80 % [facility] Reduction [facility] Specimen (Source) Anatomical Collection Method Collection Time Re ceived Time Location / / Volume Laterality 04/22/2020 04/23/2020 7:45 PM COMPOSITION STONE APPLICATOR Narrative [facility] - 04/24/2020 Unless otherwise specified, test(s) performed at: [facility], [address] [place] [address] DIESEL MOTOR MECHANIC: Alec Payan M.D. For any questions, please call customer service at FREQUENCY:MONTHLY Resulting Agency Comment Specimen source: Serum Ernie Pompa MD LAB BLOOD ORDERABLES Performing Organization Address City/[facility] Code Phon e Number [facility] (ABNORMAL) Spectrae Chemistry (04/22/2020) Patholo gist Method Time Signature BUN 62 (H) 6 - 19 [facility] mg/dL [facility] Creatinine 5.84 (H) 0.60 - [facility] 1.30 mg/dL [facility] BUN/Creatinine 10.6 10.0 - [facility] Ratio 20.0 [facility] Sodium 137 136 - 145 [facility] mEq/L [facility] Potassium 4.2 3.5 - 5.1 [facility] mEq/L [facility] Chloride 98 96 - 108 [facility] mEq/L [facility] Bicarbonate 24 22 - 29 [facility] (CO2) mEq/L [facility] Calcium 9.3 8.4 - 10.2 [facility] mg/dL [facility] Corrected 9.4 8.4 - 10.2 [facility] Calcium mg/dL [facility] Comment: Corrected Calcium is not equivalent to m easured Ionized Calcium. Phosphorus 5.7 (H) 2.6 - 4.5 mg/dL [facility] Calcium Phosphorus Product 53 0 - 54 [facility] Calcium Phosporus Product, Cor 54 0 - 54 [facility] Total Protein 6.6 6.0 - 8.5 g/dL [facility] Albumin 3.9 3.5 - 5.2 g/dL [facility] [place] Globulin, Total 2.7 2.0 - 4.0 g/dL [facility]PS [facility] A/G Ratio 1.4 1.0 - 2.0 [facility] Iron 88 45 - 160 mcg/dL [facility] UIBC 190 155 - 355 mcg/dL [facility] TIBC 278 185 - 515 mcg/dL [facility] Iron Saturation (TSat) 32 20 - 55 % APS SPE CTRA [facility] Specimen (Source) Anatomical Collection Method Collection Time Re ceived Time Location / / Volume Laterality 04/22/2020 04/23/2020 7:44 PM COMPOSITION STONE APPLICATOR Narrative [facility] - 04/24/2020 Unless otherwise specified, test(s) performed at: [facility], [address] [place] [address] DIESEL MOTOR MECHANIC: Alec Payan M.D. For any questions, please call customer service at FREQUENCY:MONTHLY Resulting Agency Comment Specimen source: Serum Ernie Pompa MD LAB BLOOD ORDERABLES Performing Organization Address City/State/ZIP Code Phon e Number [facility] (ABNORMAL) Spectrae Chemistry (04/22/2020) P athologist Signature PTH 1,004 (H) 16 - 80 [facility] pg/mL [facility] Specimen (Source) Anatomical Collection Method Collection Time Re ceived Time Location / / Volume Laterality 04/22/2020 04/23/2020 3:15 PM COMPOSITION STONE APPLICATOR Narrative [facility] - 04/24/2020 Unless otherwise specified, test(s) performed at: [facility], [address] [place] [address] DIESEL MOTOR MECHANIC: Alec Payan M.D. For any questions, please call customer service at FREQUENCY:MONTHLY Resulting Agency Comment Specimen source: Plasma Ernie Pompa MD LAB BLOOD ORDERABLES Performing Organization Address City/State/ZIP Code Phon e Number [facility] POST CHEMISTRY (04/22/2020) P athologist Signature BUN Post 13 6 - 19 [facility] Dialysis mg/dL [facility] Specimen (Source) Anatomical Collection Method Collection Time Re ceived Time Location / / Volume Laterality 04/22/2020 04/23/2020 2:14 PM COMPOSITION STONE APPLICATOR Narrative [facility] - 04/23/2020 Unless otherwise specified, test(s) performed at: [facility], [address] [place] [address] DIESEL MOTOR MECHANIC: Alec Payan M.D. For any questions, please call customer service at FREQUENCY:MONTHLY Resulting Agency Comment Specimen source: Plasma Ernie Pompa MD LAB BLOOD ORDERABLES Performing Organization Address City/State/ZIP Code Phon e Number [facility] documented in this encounter Visit Diagnoses Not on filedocumented in this encounter
--- OUTSIDE RECORDS SUMMARY | 2021-10-27 05:44 | XMS_ITS | Encounter Summary ---
:1945 Author Organization [facility] Address [address] [place] [address] Care Team Providers Name Role Phone Unavailable Primary Care Provider Unavailable Encounter Details Date Type Department Care Team Description 06/10/2020 Orders Only [facility] O f Ernie Guzmán MD [address] [place] [address] [place], [place] [phone] (Wo rk) Social History Tobacco Use Types Packs/Day Years Used Date Smoking Tobacco: Unknown Comments: Smoking History Info:Patient n ot screened Sex Assigned at Date Recorded Not on file documented as of this encounter Plan of Treatment Not on filedocumented as of this encounter Procedures Procedure Name Priority Date/Time Associated Diagnosis Comme nts HEMATOLOGY Routine 06/10/2020 Results for thi s procedure are in the resu lts section. documented in this encounter Results (ABNORMAL) HEMATOLOGY (06/10/2020) Analysis Performed At Patho logist Time Signature Hemoglobin 9.6 (L) 14.0 - [facility] 18.0 g/dL [facility] Hemoglobin x 3 28.8 (L) 42.0 - [facility] 54.0 % [facility] Specimen (Source) Anatomical Collection Method Collection Time Re ceived Time Location / / Volume Laterality 06/10/2020 06/11/2020 1:40 PM CDT Narrative [facility] - 06/11/2020 Unless otherwise specified, test(s) performed at: [facility], [address] [place] [id number] TRAPEZE ARTIST: Alec Payan M.D. For any questions, please call customer service at FREQUENCY:OTHER Resulting Agency Comment Specimen source: Blood Ernie Pompa MD LAB BLOOD ORDERABLES Performing Organization Address City/State/ZIP Code Phon e Number [facility] documented in this encounter Visit Diagnoses Not on filedocumented in this encounter
--- OUTSIDE RECORDS SUMMARY | 2021-10-27 05:44 | XMS_ITS | Encounter Summary ---
:1945 Author Organization [facility] Address [address] [place] [address] Care Team Providers Name Role Phone Unavailable Primary Care Provider Unavailable Encounter Details Date Type Department Care Team Description 09/23/2020 Treatment [facility] f Ernie Guzmán MD [address] [place] [address] [place], [place] [phone] (Wo rk) Social History Tobacco Use Types Packs/Day Years Used Date Smoking Tobacco: Unknown Comments: Smoking History Info:Patient n ot screened Sex Assigned at Date Recorded Not on file documented as of this encounter Miscellaneous Notes Dialysis Note - Ernie Pompa MD - 09/23/2020 10:44 AM CDT Date: Sep 23, 2020 Patient Name: Shaun Ocampo : 1945 Chart #: [id number] Sex: M This patient was personally seen for a complete visit as part of routine monthly dialysis care. A review of the dialysis treatment, blood pressure, estimated dry weight and recent lab values was made. These were discussed with the patient and staff as necessary. Treatment Data for 09/23/2020 started at:9:00 AM Dialyzer: 180NRe Optiflux Na: 138 mEq/L Bicarb: 30 mEq/L Dialysate: 2.0 K, 2.25 Ca, 1.0 Mg, 100 Dextrose (G2231) Dialysate/Machine Temp (prescribed): 37 C Dialysate/Machine Temp (actual): 36.7 C BFR (prescribed): 500 BFR (actual): 500 Prescribed time: 04:00 EDW: 108 kg Access Type: Active (In Use):AVFistula-Standard/Left Upper Arm Pre Dialysis Vitals (for 09/23/2020 8:57 AM ) Pre BP (sit): 165/70 Pre Wt: 113.7 kg Temp: 97.6 F Post Dialysis Vitals (for 09/21/2020 1:03 PM ) Post BP (sit): 125/65 Post Wt: 109.8 kg Current Dialysis Vitals (for 09/23/2020 10:32 AM ) BP (sit): 103/52 AP(-) / GRADES 1 THROUGH 6 TEACHER: 235/188 Pulse: 72 Chairside data as of 09/23/2020 10:32 AM Last 3 Treatments 09/21/2020 09/18/2020 09/16/2020 EDW (kg) 108 108 108 Weight Pre (kg) 114.9 113.6 113.8 Weight Post (kg) 109.8 109.2 109.6 Dialytic Weight Loss (kg) -5.1 -4.4 -4.2 EDW Deviation (kg) 1.8 1.2 1.6 BP Sit Pre 133/53 147/74 141/56 BP Sit Post 125/65 124/58 124/55 UF Rate (mL/kg/hr) 12 10 10 Prescribed BFR 500 500 500 Average Delivered BFR 500 450 440 Prescribed Treatment Time 04:00 04:00 04:00 Actual Treatment Time 04:05 04:03 04:01 Last 3 Values 09/18/2020 08/21/2020 07/24/2020 Access [...] 50 mg IVP 1X Week During Dialysis 08/10/2020 08/09/2021 Mircera 50 mcg IVP Every 2 weeks During Dialysis 09/16/2020 09/15/2021 HOSPITAL TRAY SERVICE WORKER: Ernie Pompa MD LOCATION: [phone] SCHEDULE: Aravind-- 2nd Shift EDW: kg. DIALYZER: HD DURATION: NEEDLE SIZE: ANTICOAG: BATH: QB: ml/min QD: ml/min Subjective Tolerating dialysis well. 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 06/10: Doing well overall, no new complaints, [...] Went to Urgent care -> ER in [place] yesterday,CT with R hydro but no obstructive [...] He had infiltration last week, dialyzed at [facility] on Sat and went well, access [...] made. Treatment and Adequacy Assessment BUN mg/dL 49 (08/19/20) 58 (07/22/20) 58 [...] (07/22/20) 1.7800 (06/24/20) 1.8400 (05/20/20) 1.8600 (04/22/20) Dialysis is adequate. Achieves prescribed time - Yes Achieves prescribed frequency - Yes Continue current prescription. Vascular Access Assessment Type of access: [id number] Surgeon - Lary GARDNER Access working well Anemia Assessment HEMOGLOBIN (G/DL) IN BLOOD g/dL 9.6 (09/16/20) 9.8 (09/09/20) 10.0 (09/02/20) 9.3 (08/26/20) 9.6 (08/19/20) PLATELETS 1000/mcL 147 (08/19/20) 152 (07/22/20) 153 (06/24/20) 196 (05/20/20) 192 (04/22/20) IRON SATURATION % 36 (08/19/20) 26 (07/22/20) 32 (06/24/20) 33 (05/20/20) 32 (04/22/20) FERRITIN ng/mL 951 (06/24/20) 1040 (03/25/20) 912 (01/29/20) 732 (12/25/19) Hemoglobin is below goal. Iron Saturation is at goal. Ferritin is at goal. Will adjust NATALEE and intravenous iron per protocol. Nutritional and Metabolic Assessment ALBUMIN (G/DL) g/dL 3.9 (08/19/20) 4.0 (07/22/20) 3.8 (06/24/20) 3.8 (05/20/20) 3.9 (04/22/20) Sodium mEq/L 138 (08/19/20) 137 (07/22/20) 137 (06/24/20) 134 (05/20/20) 137 (04/22/20) POTASSIUM (MMOL/L) IN SER/PLAS mEq/L 5.5 (08/19/20) 4.2 (07/22/20) 4.5 (06/24/20) 5.1 (05/20/20) 4.2 (04/22/20) BICARBONATE (CO2) mEq/L 23 (08/19/20) 25 (07/22/20) 24 (06/24/20) 24 (05/20/20) 24 (04/22/20) 25 OH VITAMIN D ng/mL 37.9 (03/25/20) Albumin is below goal. Encourage high-biological value protein intake. Potassium is at goal. Bicarbonate is at goal. Continue same bicarbonate in dialysate. Bone and Mineral Metabolism Assessment Calcium mg/dL 9.5 (08/19/20) 8.9 (07/22/20) 8.8 (06/24/20) 9.5 (05/20/20) 9.3 (04/22/20) CALCIUM (MG/DL) CORRECTED FOR ALBUMIN IN SER/PLAS mg/dL 9.6 (08/19/20) 8.9 (07/22/20) 9.0 (06/24/20) 9.7 (05/20/20) 9.4 (04/22/20) PHOSPHATE (MG/DL) IN SER/PLAS mg/dL 5.1 (08/19/20) 6.2 (07/22/20) 5.5 (06/24/20) 6.2 (05/20/20) 5.7 (04/22/20) CALCIUM PHOSPHORUS PRODUCT, COR 49 (08/19/20) 55 (07/22/20) 50 (06/24/20) 60 (05/20/20) 54 (04/22/20) IPTH pg/mL 696 (08/19/20) 1020 (07/22/20) 807 (06/24/20) 952 (05/20/20) 1004 (04/22/20) Corrected Calcium is at goal. Phosphorous is at goal. Intact PTH is above goal. Mitigation Supervisor will adjust binders and vitamin D per protocol and continue to provide dietary education. repeat labs today, improving after changes made (binder added, calcitriol adjusted, sensipar being considered if needed) Cardiovascular Assessment Blood pressures reviewed and are acceptable. Intradialytic weight gains are too high. Estimated dry weight is appropriate. Discussed fluid restriction multiple times but unable to make progress in high fluid gains. He agrees to trial increase in HD time by 30 min, will reduce BFR with this to 450 and monitor adequacy. Transplant Status: Patient is not a candidate. Weight, co-morbidities, age Resuscitation Status Stable dialysis Fluid gains remain high, will increase time by 30 min with lower BFR at 450 ml/min and see if improvement in UFR and reaching EDW and feeling less washed out after dialysis Monthly labs being drawn today Ernie Pompa MD [ Signed And locked electronically On 09/23/2020 at 10:47:51 AM ] Transcribed: Ernie Pompa ( 09/23/2020 ) documented in this encounter Plan of Treatment Not on filedocumented as of this encounter Visit Diagnoses Not on filedocumented in this encounter
--- OUTSIDE RECORDS SUMMARY | 2021-10-27 05:44 | XMS_ITS | Encounter Summary ---
:1945 Author Organization [facility] Address [address] [place] [address] Care Team Providers Name Role Phone Unavailable Primary Care Provider Unavailable Encounter Details Date Type Department Care Team Description 05/06/2020 Treatment [facility] f Ernie Guzmán MD [address] [place] [address] [place], [place] [phone] (Wo rk) Social History Tobacco Use Types Packs/Day Years Used Date Smoking Tobacco: Unknown Comments: Smoking History Info:Patient n ot screened Sex Assigned at Date Recorded Not on file documented as of this encounter Miscellaneous Notes Dialysis Note - Ernie Pompa MD - 05/06/2020 11:40 AM CST Date: May 06, 2020 Patient Name: Shaun Ocampo : 1945 Chart #: [id number] Sex: M This patient was personally seen for a basic visit as part of routine weekly dialysis care. A reviewof the dialysis treatment, blood pressure, estimated dry weight and recent lab values was made. These were discussed with the patient and staff as necessary. Treatment Data for 05/06/2020 started at:9:15 AM Dialyzer: 180NRe Optiflux Na: 138 mEq/L Bicarb: 30 mEq/L Dialysate: 3.0 K, 2.25 Ca, 1.0 Mg, 100 Dextrose (G3231) Dialysate/Machine Temp (prescribed): 37 C Dialysate/Machine Temp (actual): 37 C BFR (prescribed): 500 BFR (actual): 500 Prescribed time: 04:00 EDW: 107 kg Access Type: Active (In Use):AVFistula-Standard/Left Upper Arm Pre Dialysis Vitals (for 05/06/2020 9:08 AM ) Pre BP (sit): 164/70 Pre Wt: 112.8 kg Temp: 97.5 F Post Dialysis Vitals (for 05/04/2020 11:27 AM ) Post BP (sit): 122/59 Post Wt: 112.1 kg Current Dialysis Vitals (for 05/06/2020 11:34 AM ) BP (sit): 108/52 AP(-) / SENIOR INTERACTION DESIGNER: 261/214 Pulse: 89 Chairside data as of 05/06/2020 11:34 AM Last 3 Treatments 05/04/2020 05/01/2020 04/29/2020 EDW (kg) 107 107 107 Weight Pre (kg) 112.8 112.4 112.4 Weight Post (kg) 112.1 108.1 107.9 Dialytic Weight Loss (kg) -0.7 -4.3 -4.5 EDW Deviation (kg) 5.1 1.1 0.9 BP Sit Pre 179/76 159/68 145/54 BP Sit Post 122/59 131/56 118/52 UF Rate (mL/kg/hr) 4 10 10 Prescribed BFR 500 500 500 Average Delivered BFR 450 480 510 Prescribed Treatment Time 04:00 04:00 04:00 Actual Treatment Time 01:35 04:01 04:03 Last 3 Values 05/01/2020 04/24/2020 04/03/2020 Access Flow > 2000 > 2000 > [...] Every 4 weeks During Dialysis 04/15/2020 04/14/2021 STAGE ELECTRICIAN HELPER: Ernie Pompa MD LOCATION: [phone] SCHEDULE: 2nd Shift ACCESS: EDW: kg. DIALYZER: HD DURATION: NEEDLE SIZE: ANTICOAG: BATH: QB: ml/min QD: ml/min Subjective Tolerating dialysis well. Reports no trouble with access. 05/06: HD going well outside high fluid gains that continue. However, acute abd/groin pain on Monday and came off early. Had gross hematuria Monday. Went to Urgent care -> ER in [place] yesterday,CT with R hydro but no obstructive [...] had infiltration last week, dialyzed at [facility] on Sat and went well, access [...] No murmur heard. Edema - Trace edema. Access - AVF intact with needles [...] and no changes were made. BUN mg/dL 62 (04/22/20) 58 (03/25/20) 57 (02/19/20) 70 (01/22/20) 53 (01/01/20) UREA NITROGEN (MG/DL) IN SER/PLAS - POST DIALYSIS mg/dL 13 (04/22/20) 12 (03/25/20) 13 (02/19/20) 16 (01/22/20) 12 (01/01/20) URR % 79 (04/22/20) 79 (03/25/20) 77 (02/19/20) 77 (01/22/20) 77 (01/01/20) spKt/V Gotch 1.95 (04/22/20) 2.03 (03/25/20) 1.87 (01/01/20) 1.83 (11/20/19) 1.74 (10/28/19) eKdrt/V 1.69 (04/22/20) 1.76 (03/25/20) 1.62 (01/01/20) 1.59 (11/20/19) 1.51 (10/28/19) spKt/V (Daugirdas II) 1.8600 (04/22/20) 1.9100 (03/25/20) 1.7600 (02/19/20) 1.7800 (01/22/20) 1.7800 (01/01/20) HEMOGLOBIN (G/DL) IN BLOOD g/dL 9.9 (04/29/20) 10.2 (04/22/20) 10.3 (04/15/20) 9.8 (04/08/20) 10.1 (04/01/20) PLATELETS 1000/mcL 192 (04/22/20) 169 (03/25/20) 190 (02/19/20) 158 (01/22/20) 157 (12/25/19) IRON SATURATION % 32 (04/22/20) 31 (03/25/20) 40 (02/19/20) 48 (01/22/20) 45 (12/25/19) FERRITIN ng/mL 1040 (03/25/20) 912 (01/29/20) 732 (12/25/19) 844 (09/18/19) 200 (07/29/19) ALBUMIN (G/DL) g/dL 3.9 (04/22/20) 3.9 (03/25/20) 4.0 (02/19/20) Sodium mEq/L 137 (04/22/20) 135 (03/25/20) 139 (02/19/20) POTASSIUM (MMOL/L) IN SER/PLAS mEq/L 4.2 (04/22/20) 4.8 (03/25/20) 5.1 (02/19/20) BICARBONATE (CO2) mEq/L 24 (04/22/20) 24 (03/25/20) 19 (02/19/20) 25 OH VITAMIN D ng/mL 37.9 (03/25/20) 62.4 (09/18/19) 44.4 (05/01/19) BUN/CREATININE (MASS RATIO) IN SER/PLAS 10.6 (04/22/20) 10.2 (03/25/20) 9.3 (02/19/20) Calcium mg/dL 9.3 (04/22/20) 9.9 (03/25/20) 10.0 (02/19/20) Calcium Phos Product 53 (04/22/20) 58 (03/25/20) 58 (02/19/20) CALCIUM (MG/DL) CORRECTED FOR ALBUMIN IN SER/PLAS mg/dL 9.4 (04/22/20) 10.0 (03/25/20) 10.0 (02/19/20) PHOSPHATE (MG/DL) IN SER/PLAS mg/dL 5.7 (04/22/20) 5.9 (03/25/20) 5.8 (02/19/20) IPTH pg/mL 1004 (04/22/20) 828 (03/25/20) 506 (12/25/19) Vascular Access Assessment: Type of access: [id number]/[email or web address] Surgeon - Lary GARDNER Access working well Impression and Plan No changes, stable dialysis He will monitor sx and ensure gross hematuria resolves and pain resolving over next 48hrs [facility], get him in for visit, if sx worsening or not improving then will get him in sooner if possible for cysto. I will also follow-up urine culture and sensitivities this week. Ernie Pompa MD [ Signed And locked electronically On 05/06/2020 at 11:43:31 AM ] Transcribed: Ernie Pompa ( 05/06/2020 ) documented in this encounter Plan of Treatment Not on filedocumented as of this encounter Visit Diagnoses Not on filedocumented in this encounter
--- OUTSIDE RECORDS SUMMARY | 2021-10-27 05:44 | XMS_ITS | Encounter Summary ---
:1945 Author Organization [facility] Address [address] [place] [address] Care Team Providers Name Role Phone Unavailable Primary Care Provider Unavailable Encounter Details Date Type Department Care Team Description 05/27/2020 Treatment [facility] O Ernie Gómez MD [address] [place] [address] [place], [place] [phone] (Wo rk) Social History Tobacco Use Types Packs/Day Years Used Date Smoking Tobacco: Unknown Comments: Smoking History Info:Patient n ot screened Sex Assigned at Date Recorded Not on file documented as of this encounter Miscellaneous Notes Dialysis Note - Ernie Pompa MD - 05/27/2020 12:29 PM CST Date: May 27, 2020 Patient Name: Shaun Ocampo : 1945 Chart #: [id number] Sex: M This patient was personally seen for a complete visit as part of routine monthly dialysis care. A review of the dialysis treatment, blood pressure, estimated dry weight and recent lab values was made. These were discussed with the patient and staff as necessary. Treatment Data for 05/27/2020 started at:9:16 AM Dialyzer: 180NRe Optiflux Na: 138 mEq/L Bicarb: 30 mEq/L Dialysate: 2.0 K, 2.25 Ca, 1.0 Mg, 100 Dextrose (G2231) Dialysate/Machine Temp (prescribed): 37 C Dialysate/Machine Temp (actual): 36.9 C BFR (prescribed): 500 BFR (actual): 500 Prescribed time: 04:00 EDW: 107 kg Access Type: Active (In Use):AVFistula-Standard/Left Upper Arm Pre Dialysis Vitals (for 05/27/2020 9:08 AM ) Pre BP (sit): 145/69 Pre Wt: 112.7 kg Temp: 97 F Post Dialysis Vitals (for 05/25/2020 1:22 PM ) Post BP (sit): 127/60 Post Wt: 109 kg Current Dialysis Vitals (for 05/27/2020 11:03 AM ) BP (sit): 122/55 AP(-) / DEPUTY COURT: 234/221 Pulse: 72 Chairside data as of 05/27/2020 11:03 AM Last 3 Treatments 05/25/2020 05/22/2020 05/20/2020 EDW (kg) 107 107 107 Weight Pre (kg) 113.8 112.4 112.5 Weight Post (kg) 109 108.2 108.1 Dialytic Weight Loss (kg) -4.8 -4.2 -4.4 EDW Deviation (kg) 2 1.2 1.1 BP Sit Pre 168/68 130/65 129/77 BP Sit Post 127/60 113/54 117/50 UF Rate (mL/kg/hr) 11 10 10 Prescribed BFR 500 500 500 Average Delivered BFR 510 480 500 Prescribed Treatment Time 04:00 04:00 04:00 Actual Treatment Time 04:02 04:01 04:04 Last 3 Values 05/01/2020 04/24/2020 04/03/2020 Access [...] Every 4 weeks During Dialysis 04/15/2020 04/14/2021 BENEFIT DIRECTOR: Ernie Pompa MD LOCATION: [phone] SCHEDULE: M-W-F 2nd Shift EDW: kg. DIALYZER: HD DURATION: NEEDLE SIZE: ANTICOAG: BATH: QB: ml/min QD: ml/min Subjective Tolerating dialysis well. Reports no trouble with access. 05/27/20: Overall doing very well. No more [...] Went to Urgent care -> ER in [place] yesterday,CT with R hydro but no obstructive [...] He had infiltration last week, dialyzed at [facility] on Sat and went well, access [...] No murmur heard. Edema - Trace edema. improved and now stable with chronic [...] made. Treatment and Adequacy Assessment BUN mg/dL 56 (05/20/20) 62 (04/22/20) 58 [...] (04/22/20) 1.9100 (03/25/20) 1.7600 (02/19/20) 1.7800 (01/22/20) Dialysis is adequate. Achieves prescribed time - Yes Achieves prescribed frequency - Yes Continue current prescription. Vascular Access Assessment Type of access: [id number]/[email or web address] Surgeon - Lary GARDNER Access working well Anemia Assessment HEMOGLOBIN (G/DL) IN BLOOD g/dL 9.9 (05/20/20) 10.1 (05/13/20) 10.3 (05/06/20) 9.9 (04/29/20) 10.2 (04/22/20) PLATELETS 1000/mcL 196 (05/20/20) 192 (04/22/20) 169 [...] and Metabolic Assessment ALBUMIN (G/DL) g/dL 3.8 (05/20/20) 3.9 (04/22/20) 3.9 (03/25/20) 4.0 (02/19/20) 3.6 (01/22/20) Sodium mEq/L 134 (05/20/20) 137 (04/22/20) 135 (03/25/20) 139 (02/19/20) 135 (01/22/20) POTASSIUM (MMOL/L) IN SER/PLAS mEq/L 5.1 (05/20/20) 4.2 (04/22/20) 4.8 (03/25/20) 5.1 (02/19/20) 4.4 (01/22/20) BICARBONATE (CO2) mEq/L 24 (05/20/20) 24 (04/22/20) 24 (03/25/20) 19 (02/19/20) 21 (01/22/20) 25 OH VITAMIN D ng/mL 37.9 (03/25/20) 62.4 (09/18/19) Albumin is below goal. Encourage high-biological value protein intake. Potassium is at goal. Bicarbonate is at goal. Continue same bicarbonate in dialysate. Bone and Mineral Metabolism Assessment Calcium mg/dL 9.5 (05/20/20) 9.3 (04/22/20) 9.9 (03/25/20) 10.0 (02/19/20) 9.7 (01/22/20) CALCIUM (MG/DL) CORRECTED FOR ALBUMIN IN SER/PLAS mg/dL 9.7 (05/20/20) 9.4 (04/22/20) 10.0 (03/25/20) 10.0 (02/19/20) 10.0 (01/22/20) PHOSPHATE (MG/DL) IN SER/PLAS mg/dL 6.2 (05/20/20) 5.7 (04/22/20) 5.9 (03/25/20) 5.8 (02/19/20) 6.4 (01/22/20) CALCIUM PHOSPHORUS PRODUCT, COR 60 (05/20/20) 54 (04/22/20) 59 (03/25/20) 58 (02/19/20) 64 (01/22/20) IPTH pg/mL 952 (05/20/20) 1004 (04/22/20) 828 (03/25/20) 506 (12/25/19) 167 (09/18/19) Corrected Calcium is at goal. Phosphorous is above goal. Intact PTH is above goal. Superintendent Warehouse will adjust binders and vitamin D per protocol and continue to provide dietary education. Back on binder, sensipar increased to 60, montior labs with this Cardiovascular Assessment Blood pressures reviewed and are [...] Resuscitation Status Lower IDWG's discussed again today Follow-up with Urology regarding CT scan results and recent gross hematuria Sensipar increased, back on binder No other changes to HD Ernie Pompa MD [ Signed And locked electronically On 05/27/2020 at 12:33:59 PM ] Transcribed: Ernie Pompa ( 05/27/2020 ) documented in this encounter Plan of Treatment Not on filedocumented as of this encounter Visit Diagnoses Not on filedocumented in this encounter
--- OUTSIDE RECORDS SUMMARY | 2021-10-27 05:45 | XMS_ITS | Encounter Summary ---
:1945 Author Organization [facility] Address [address] [place] [address] Care Team Providers Name Role Phone Unavailable Primary Care Provider Unavailable Encounter Details Date Type Department Care Team Description 02/19/2020 Treatment [facility] O Ernie Gómez MD [address] [place] [address] [place], [place] [phone] (Wo rk) Social History Tobacco Use Types Packs/Day Years Used Date Smoking Tobacco: Unknown Comments: Smoking History Info:Patient n ot screened Sex Assigned at Date Recorded Not on file documented as of this encounter Miscellaneous Notes Dialysis Note - Ernie Pompa MD - 02/19/2020 10:37 AM CST Date: Feb 19, 2020 Patient Name: Shaun Ocampo : 1945 Chart #: [id number] Sex: M This patient was personally seen for a complete visit as part of routine monthly dialysis care. A review of the dialysis treatment, blood pressure, estimated dry weight and recent lab values was made. These were discussed with the patient and staff as necessary. Treatment Data for 02/19/2020 started at:9:28 AM Dialyzer: 180NRe Optiflux Na: 138 mEq/L Bicarb: 26 mEq/L Dialysate: 3.0 K, 2.25 Ca, 1.0 Mg, 100 Dextrose (G3231) Dialysate/Machine Temp (prescribed): 37 C Dialysate/Machine Temp (actual): 37 C BFR (prescribed): 500 BFR (actual): 500 Prescribed time: 04:00 EDW: 105.7 kg Access Type: Active (In Use):AVFistula-Standard/Left Upper Arm Pre Dialysis Vitals (for 02/19/2020 9:19 AM ) Pre BP (sit): 140/54 Pre Wt: 110.5 kg Temp: 97.9 F Post Dialysis Vitals (for 02/17/2020 1:31 PM ) Post BP (sit): 115/57 Post Wt: 107.6 kg Current Dialysis Vitals (for 02/19/2020 10:04 AM ) BP (sit): 104/47 AP(-) / SATURATION DIVER: 260/215 Pulse: 84 Chairside data as of 02/19/2020 10:04 AM Last 3 Treatments 02/17/2020 02/14/2020 02/12/2020 EDW (kg) 105.7 105.7 105.7 Weight Pre (kg) 112.7 110.9 110.5 Weight Post (kg) 107.6 105.9 105.8 Dialytic Weight Loss (kg) -5.1 -5 -4.7 EDW Deviation (kg) 1.9 0.2 0.1 BP Sit Pre 165/74 120/54 150/71 BP Sit Post 115/57 122/47 111/54 UF Rate (mL/kg/hr) 02 28 11 Prescribed BFR 500 500 500 Average Delivered BFR 500 470 500 Prescribed Treatment Time 04:00 04:00 04:00 Actual Treatment Time 04:01 04:05 04:06 Last 3 Values 01/24/2020 12/20/2019 11/22/2019 Access Flow > 2000 > 2000 > 2000 Treatment Medication Orders Medication Sig Start Date End Date Heparin Sodium (Porcine) 1,000 Units/mL Systemic 2000 units IVP Every Treatment 05/01/2019 04/29/2020 Heparin Sodium (Porcine) 1,000 Units/mL Systemic 1000 units IVP Every Treatment 05/01/2019 04/29/2020 Iron Sucrose (Venofer) 50 mg IVP 1X Week During Dialysis 10/28/2019 10/19/2020 Mircera 50 mcg IVP Every 4 weeks During Dialysis 02/12/2020 02/10/2021 AUTOMATIC TIRE TESTER: Ernie Pompa MD LOCATION: [facility] [phone] SCHEDULE: M-W-F 2nd Shift EDW: kg. DIALYZER: HD DURATION: NEEDLE SIZE: ANTICOAG: BATH: QB: ml/min QD: ml/min Subjective Tolerating dialysis well. 02/18: He has been having higher fluid [...] He had infiltration last week, dialyzed at [facility] on Sat and went well, access [...] AVF intact with needles in place, no aneurysms, no bruising Medication List Medication Sig Start Date albuterol [...] mg tablet Take 1 tablet by mouth twice a day with meals Triphrocaps (b complex with c 20-folic acid) 1 mg capsule Take 1 capsule by mouth once a day Allergy List Allergen Reaction Reaction Severity Onset Date lisinopril Cough Medications reviewed and no changes were made. Treatment and Adequacy Assessment BUN mg/dL 70 (01/22/20) 53 (01/01/20) 48 (12/25/19) 51 (11/20/19) 54 (10/28/19) UREA NITROGEN (MG/DL) IN SER/PLAS - POST DIALYSIS mg/dL 16 (01/22/20) 12 (01/01/20) <^2 (12/25/19) 12 (11/20/19) 13 (10/28/19) URR % 77 (01/22/20) 77 (01/01/20) 76 (11/20/19) 76 (10/28/19) 78 (09/18/19) spKt/V Gotch 1.87 (01/01/20) 1.83 (11/20/19) 1.74 (10/28/19) 1.79 (09/18/19) 1.63 (08/21/19) eKdrt/V 1.62 (01/01/20) 1.59 (11/20/19) 1.51 (10/28/19) 1.56 (09/18/19) 1.42 (08/21/19) spKt/V (Daugirdas II) 1.7800 (01/22/20) 1.7800 (01/01/20) 1.7400 (11/20/19) 1.7000 (10/28/19) 1.7600 (09/18/19) Dialysis is adequate. Achieves prescribed time - Yes Achieves prescribed frequency - Yes Continue current prescription. Vascular Access Assessment Type of access: Haduhti15/2019 Surgeon Annita KUMARW Access working well Anemia Assessment HEMOGLOBIN (G/DL) IN BLOOD g/dL 11.2 (02/12/20) 11.0 (02/05/20) 11.1 (01/29/20) 10.3 (01/22/20) 11.0 (01/15/20) PLATELETS 1000/mcL 158 (01/22/20) 157 (12/25/19) 194 (11/20/19) 174 (10/23/19) 200 (09/18/19) IRON SATURATION % 48 (01/22/20) 45 (12/25/19) 42 (11/20/19) 40 (10/23/19) 34 (09/18/19) FERRITIN ng/mL 912 (01/29/20) 732 (12/25/19) 844 (09/18/19) 200 (07/29/19) 134 (06/19/19) Hemoglobin is at goal. Iron Saturation is at goal. Ferritin is at goal. Will adjust NATALEE and intravenous iron per protocol. Nutritional and Metabolic Assessment ALBUMIN (G/DL) g/dL 3.6 (01/22/20) 3.8 (12/25/19) 3.8 (11/20/19) 3.8 (10/23/19) 3.8 (09/18/19) Sodium mEq/L 135 (01/22/20) 137 (12/25/19) 138 (11/20/19) 137 (10/23/19) 136 (09/18/19) POTASSIUM (MMOL/L) IN SER/PLAS mEq/L 4.4 (01/22/20) 4.8 (12/25/19) 4.3 (11/20/19) 4.0 (10/23/19) 4.5 (09/18/19) BICARBONATE (CO2) mEq/L 21 (01/22/20) 22 (12/25/19) 22 (11/20/19) 21 (10/23/19) 23 (09/18/19) 25 OH VITAMIN D ng/mL 62.4 (09/18/19) 44.4 (05/01/19) Albumin is below goal. Encourage high-biological value protein intake. Potassium is at goal. Bicarbonate is at goal. Continue same bicarbonate in dialysate. Bone and Mineral Metabolism Assessment Calcium mg/dL 9.7 (01/22/20) 10.0 (12/25/19) 10.0 (12/04/19) 10.2 (11/20/19) 9.9 (11/13/19) CALCIUM (MG/DL) CORRECTED FOR ALBUMIN IN SER/PLAS mg/dL 10.0 (01/22/20) 10.2 (12/25/19) 10.4 (11/20/19) 10.4 (10/23/19) 10.5 (09/18/19) PHOSPHATE (MG/DL) IN SER/PLAS mg/dL 6.4 (01/22/20) 6.1 (12/25/19) 4.8 (11/20/19) 5.7 (10/23/19) 3.7 (09/18/19) CALCIUM PHOSPHORUS PRODUCT, COR 64 (01/22/20) 62 (12/25/19) 50 (11/20/19) 59 (10/23/19) 39 (09/18/19) IPTH pg/mL 506 (12/25/19) 167 (09/18/19) 164 (07/24/19) 199 (06/19/19) 351 (05/01/19) Corrected Calcium is above goal. Phosphorous is above goal. Intact PTH is at goal. Tear Down Worker will adjust binders and vitamin D per protocol and continue to provide dietary education. Stop OTC Ca-D that he was taking, started Renvela, Ca improved but on higher side. Repeat and will determine if low dose sensipar needed. Cardiovascular Assessment Blood pressures reviewed and are acceptable. Intradialytic weight gains are too high. Estimated dry weight is appropriate. Discussed fluid restriction and ways to track fluid today and importance of lower IDWG to protect heart Transplant Status: Patient is not a candidate. Weight, co-morbidities Resuscitation Status Lower IDWG's Labs today Stable dialysis otherwise with no changes to prescription Ernie Pompa MD [ Signed And locked electronically On 02/19/2020 at 10:39:43 AM ] Transcribed: Ernie Pompa ( 02/19/2020 ) documented in this encounter Plan of Treatment Not on filedocumented as of this encounter Visit Diagnoses Not on filedocumented in this encounter
--- OUTSIDE RECORDS SUMMARY | 2021-10-27 05:45 | XMS_ITS | Encounter Summary ---
:1945 Author Organization [facility] Address [address] [place] [address] Care Team Providers Name Role Phone Unavailable Primary Care Provider Unavailable Encounter Details Date Type Department Care Team Description 12/11/2019 Orders Only [facility] f Ernie Guzmán MD [phone] [place] [address] [place], [place] [phone] (Wo rk) Social History Tobacco Use Types Packs/Day Years Used Date Smoking Tobacco: Unknown Comments: Smoking History Info:Patient n ot screened Sex Assigned at Date Recorded Not on file documented as of this encounter Plan of Treatment Not on filedocumented as of this encounter Procedures Procedure Name Priority Date/Time Associated Diagnosis Comme nts HEMATOLOGY Routine 12/11/2019 Results for thi s procedure are in the resu lts section. documented in this encounter Results (ABNORMAL) HEMATOLOGY (12/11/2019) Analysis Performed At Patho logist Time Signature Hemoglobin 11.0 (L) 14.0 - [facility] 18.0 g/dL [facility] Hemoglobin x 3 33.0 (L) 42.0 - [facility] 54.0 % [facility] Specimen (Source) Anatomical Collection Method Collection Time Re ceived Time Location / / Volume Laterality 12/11/2019 12/12/2019 10:0 0 AM CDT Narrative [facility] - 12/12/2019 Unless otherwise specified, test(s) performed at: [facility], [address] [place] [id number] BUILDING MAINTENANCE TECHNICIAN: Alec Payan M.D. For any questions, please call customer service at FREQUENCY:OTHER Resulting Agency Comment Specimen source: Blood Ernie Pompa MD LAB BLOOD ORDERABLES Performing Organization Address City/State/ZIP Code Phon e Number [facility] documented in this encounter Visit Diagnoses Not on filedocumented in this encounter
--- OUTSIDE RECORDS SUMMARY | 2021-10-27 05:45 | XMS_ITS | Encounter Summary ---
:1945 Author Organization [facility] Address [address] [place] [address] Care Team Providers Name Role Phone Unavailable Primary Care Provider Unavailable Encounter Details Date Type Department Care Team Description 11/20/2019 Treatment [facility] Ernie Gómez MD [address] [place] [address] [place], [place] [phone] (Wo rk) Social History Tobacco Use Types Packs/Day Years Used Date Smoking Tobacco: Unknown Comments: Smoking History Info:Patient n ot screened Sex Assigned at Date Recorded Not on file documented as of this encounter Miscellaneous Notes Dialysis Note - Ernie Pompa MD - 11/20/2019 11:34 AM CDT Date: Nov 20, 2019 Patient Name: Shaun Ocampo : 1945 Chart #: [id number] Sex: M This patient was personally seen for a complete visit as part of routine monthly dialysis care. A review of the dialysis treatment, blood pressure, estimated dry weight and recent lab values was made. These were discussed with the patient and staff as necessary. Treatment Data for 11/20/2019 started at:10:54 AM Dialyzer: 180NRe Optiflux Na: 138 mEq/L Bicarb: 26 mEq/L Dialysate: 3.0 K, 2.25 Ca, 1.0 Mg, 100 Dextrose (G3231) Dialysate/Machine Temp (prescribed): 37 C Dialysate/Machine Temp (actual): 37 C BFR (prescribed): 500 BFR (actual): 500 Prescribed time: 4:0 EDW: 106 kg Access Type: Active (In Use):AVFistula-Standard/Left Upper Arm Pre Dialysis Vitals (for 11/20/2019 10:47 AM ) Pre BP (sit): 166/53 Pre Wt: 109.6 kg Temp: 97.1 F Post Dialysis Vitals (for 11/18/2019 2:53 PM ) Post BP (sit): 123/60 Post Wt: 105.8 kg Current Dialysis Vitals (for 11/20/2019 11:31 AM ) BP (sit): 126/49 AP(-) / SAFETY AND SECURITY MANAGER: 230/186 Pulse: 64 Chairside data as of 11/20/2019 11:31 AM Last 3 Treatments 11/18/2019 11/15/2019 11/13/2019 EDW (kg) 106 106 106 Weight Pre (kg) 110.4 109.7 110.2 Weight Post (kg) 105.8 105.3 105.9 Dialytic Weight Loss (kg) -4.6 -4.4 -4.3 EDW Deviation (kg) -0.2 -0.7 -0.1 BP Sit Pre 136/64 148/80 161/77 BP Sit Post 123/60 140/65 143/61 UF Rate (mL/kg/hr) 11 10 10 Prescribed BFR 500 500 500 Average Delivered BFR 510 500 510 Prescribed Treatment Time 4:0 4:0 4:0 Actual Treatment Time 04:03 04:05 04:02 Last 3 Values 10/25/2019 09/27/2019 08/23/2019 Access Flow 1011 1591 > 2000 AUTO TRAVEL COUNSELOR: Ernie Pompa MD LOCATION: [place] [phone] SCHEDULE: -W- 2nd Shift EDW: kg. DIALYZER: HD DURATION: NEEDLE SIZE: ANTICOAG: BATH: QB: ml/min QD: ml/min Subjective Tolerating dialysis well. 11/19: He is doing really well, feels [...] He had infiltration last week, dialyzed at [facility] on Sat and went well, [...] bilaterally. Cardiovascular - Regular rate. Regular rhythm. Edema - 1+ [...] Renvela (sevelamer carbonate) 800 mg tablet Take 3 tablet by mouth three times a day with meals Triphrocaps (b complex with c 20-folic acid) 1 mg capsule Take 1 capsule by mouth once a day Allergy List Allergen Reaction Reaction Severity Onset Date lisinopril Cough Medications reviewed and no changes were made. Treatment and Adequacy Assessment BUN mg/dL 54 (10/28/19) 47 (10/23/19) 32 (09/18/19) 40 (08/21/19) 29 (07/24/19) UREA NITROGEN (MG/DL) IN SER/PLAS - POST DIALYSIS mg/dL 13 (10/28/19) 7 (09/18/19) 10 (08/21/19) 9 (07/24/19) 10 (07/03/19) URR % 76 (10/28/19) 78 (09/18/19) 75 (08/21/19) 69 (07/24/19) 71 (07/03/19) spKt/V Gotch 1.74 (10/28/19) 1.79 (09/18/19) 1.63 (08/21/19) 1.37 (07/24/19) 1.48 (07/03/19) eKdrt/V 1.51 (10/28/19) 1.56 (09/18/19) 1.42 (08/21/19) 1.2 (07/24/19) 1.29 (07/03/19) spKt/V (Daugirdas II) 1.7000 (10/28/19) 1.7600 (09/18/19) 1.6000 (08/21/19) 1.3500 (07/24/19) 1.4400 (07/03/19) Dialysis is adequate. Achieves prescribed time - Yes Achieves prescribed frequency - Yes Continue current prescription. Vascular Access Assessment Type of access: Wohvudf35/2019 Surgeon - Lary GARDNER Access working well Anemia Assessment HEMOGLOBIN (G/DL) IN BLOOD g/dL 10.1 (11/13/19) 10.5 (11/06/19) 10.3 (11/04/19) 11.6 (10/23/19) 11.4 (10/16/19) PLATELETS 1000/mcL 174 (10/23/19) 200 (09/18/19) 208 (08/21/19) 218 (07/24/19) 218 (06/19/19) IRON SATURATION % 40 (10/23/19) 34 (09/18/19) 24 (08/21/19) 20 (07/24/19) 19 (06/19/19) FERRITIN ng/mL 844 (09/18/19) 200 (07/29/19) 134 (06/19/19) 252 (05/29/19) 105 (05/01/19) Hemoglobin is at goal. Iron Saturation is at goal. Ferritin is at goal. Will adjust NATALEE and intravenous iron per protocol. Nutritional and Metabolic Assessment ALBUMIN (G/DL) g/dL 3.8 (10/23/19) 3.8 (09/18/19) 3.2 (08/21/19) 3.2 (07/24/19) 3.4 (06/19/19) Sodium mEq/L 137 (10/23/19) 136 (09/18/19) 137 (08/21/19) 137 (07/24/19) 137 (06/19/19) POTASSIUM (MMOL/L) IN SER/PLAS mEq/L 4.0 (10/23/19) 4.5 (09/18/19) 3.8 (08/21/19) 4.8 (07/24/19) 4.4 (06/19/19) BICARBONATE (CO2) mEq/L 21 (10/23/19) 23 (09/18/19) 27 (08/21/19) 24 (07/24/19) 22 (06/19/19) 25 OH VITAMIN D ng/mL 62.4 (09/18/19) 44.4 (05/01/19) Albumin is below goal. Encourage high-biological value protein intake. Potassium is at goal. Bicarbonate is at goal. Continue same bicarbonate in dialysate. Bone and Mineral Metabolism Assessment Calcium mg/dL 9.9 (11/13/19) 10.2 (10/23/19) 9.7 (10/09/19) 10.3 (09/18/19) 9.7 (08/21/19) CALCIUM (MG/DL) CORRECTED FOR ALBUMIN IN SER/PLAS mg/dL 10.4 (10/23/19) 10.5 (09/18/19) 10.3 (08/21/19) 10.6 (07/24/19) 10.4 (06/19/19) PHOSPHATE (MG/DL) IN SER/PLAS mg/dL 5.7 (10/23/19) 3.7 (09/18/19) 3.5 (08/21/19) 3.5 (07/24/19) 3.9 (06/19/19) CALCIUM PHOSPHORUS PRODUCT, COR 59 (10/23/19) 39 (09/18/19) 36 (08/21/19) 37 (07/24/19) 41 (06/19/19) IPTH pg/mL 167 (09/18/19) 164 (07/24/19) 199 (06/19/19) 351 (05/01/19) Corrected Calcium is above goal. Phosphorous is above goal. Intact PTH is below goal. Feather Renovator will adjust binders and vitamin D per protocol and continue to provide dietary education. Stop OTC Ca-D that he was taking, started Renvela, repeat labs today Cardiovascular Assessment Blood pressures reviewed and are acceptable. Intradialytic weight gains are too high. Estimated dry weight is appropriate. Continue to challenged dry weight as tolerated, fluid restriction discussed today Transplant Status: Patient is not a candidate. Weight, co-morbidities Resuscitation Status Tolerating dialysis well, no changes to prescription Monthly labs today, hoping to see Ca and phos nl after changes made Discussed fluid restriction today, however, as gains have been high so that we can't challenge further and he still does have edema. Ernie Pompa MD [ Signed And locked electronically On 11/20/2019 at 11:36:59 AM ] Transcribed: Ernie Pompa ( 11/20/2019 ) documented in this encounter Plan of Treatment Not on filedocumented as of this encounter Visit Diagnoses Not on filedocumented in this encounter
--- OUTSIDE RECORDS SUMMARY | 2021-10-27 05:45 | XMS_ITS | Encounter Summary ---
:1945 Author Organization [facility] Address [address] [place] [address] Care Team Providers Name Role Phone Unavailable Primary Care Provider Unavailable Encounter Details Date Type Department Care Team Description 01/29/2020 Orders Only [facility] O f Ernie Guzmán MD [address] [place] [address] [place], [place] [phone] (Wo rk) Social History Tobacco Use Types Packs/Day Years Used Date Smoking Tobacco: Unknown Comments: Smoking History Info:Patient n ot screened Sex Assigned at Date Recorded Not on file documented as of this encounter Plan of Treatment Not on filedocumented as of this encounter Procedures Procedure Name Priority Date/Time Associated Diagnosis Comme nts HEMATOLOGY Routine 01/29/2020 Results for thi s procedure are in the resu lts section. CHEMISTRY Routine 01/29/2020 Results for thi s procedure are in the resu lts section. documented in this encounter Results (ABNORMAL) Spectrae Chemistry (01/29/2020) P athologist Signature Ferritin 912 (H) 22 - 322 [facility] ng/mL [facility] Specimen (Source) Anatomical Collection Method Collection Time Re ceived Time Location / / Volume Laterality 01/29/2020 01/30/2020 5:28 PM SECURITY OPERATIONS MANAGER Narrative [facility] - 01/30/2020 Unless otherwise specified, test(s) performed at: [facility], [address] [place] [id number] AUTOMATION AND CONTROLS SUPERVISOR: Alec Payan M.D. For any questions, please call customer service at FREQUENCY:OTHER Resulting Agency Comment Specimen source: Serum Ernie Pompa MD LAB BLOOD ORDERABLES Performing Organization Address City/State/ZIP Code Phon e Number [facility] (ABNORMAL) HEMATOLOGY (01/29/2020) Analysis Performed At Patho logist Time Signature Hemoglobin 11.1 (L) 14.0 - [facility] 18.0 g/dL [facility] Hemoglobin x 3 33.3 (L) 42.0 - [facility] 54.0 % [facility] Specimen (Source) Anatomical Collection Method Collection Time Re ceived Time Location / / Volume Laterality 01/29/2020 01/30/2020 1:32 PM SECURITY OPERATIONS MANAGER Narrative [facility] - 01/30/2020 Unless otherwise specified, test(s) performed at: [facility], [address] [place] [address] AUTOMATION AND CONTROLS SUPERVISOR: Alec Payan M.D. For any questions, please call customer service at FREQUENCY:OTHER Resulting Agency Comment Specimen source: Blood Ernie Pompa MD LAB BLOOD ORDERABLES Performing Organization Address City/State/ZIP Code Phon e Number [facility] documented in this encounter Visit Diagnoses Not on filedocumented in this encounter
--- OUTSIDE RECORDS SUMMARY | 2021-10-27 05:45 | XMS_ITS | Encounter Summary ---
:1945 Author Organization [facility] Address [address] [place] [address] Care Team Providers Name Role Phone Unavailable Primary Care Provider Unavailable Encounter Details Date Type Department Care Team Description 11/20/2019 Orders Only [facility] O f Ernie Guzmán MD [phone] [place] [address] [place], [place] [phone] (Wo rk) Social History Tobacco Use Types Packs/Day Years Used Date Smoking Tobacco: Unknown Comments: Smoking History Info:Patient n ot screened Sex Assigned at Date Recorded Not on file documented as of this encounter Plan of Treatment Not on filedocumented as of this encounter Procedures Procedure Name Priority Date/Time Associated Diagnosis Comme nts HD KINETICS Routine 11/20/2019 Results for thi s procedure are i n the results section . POST CHEMISTRY Routine 11/20/2019 Results for t his procedure are i n the results section . IMMUNO CHEMISTRY Routine 11/20/2019 Results for this procedure are i n the results section . HEMATOLOGY Routine 11/20/2019 Results for thi s procedure are i n the results section . CHEMISTRY Routine 11/20/2019 Results for thi s procedure are i n the results section . SPECTRA [facility] LAB RESULTS Routine 11/20/2019 Resul ts for this procedure are i n the results section . documented in this encounter Results Spectra [facility] Lab Results (11/20/2019) P athologist Signature eKt/V 1.51 [facility] ([place]) nPCR_HD 1.02 [facility] eNPCR 0.96 [facility] eKdrt/V 1.59 [facility] spKt/V 1.74 [facility] ([place] II) spKt/V Gotch 1.83 [facility] PCR 75.65 [facility] eKt/V Gotch 1.59 [facility] Specimen (Source) Anatomical Location Collection Method / Collectio n Time Received Time / Laterality Volume 11/20/2019 11/20/2019 [facility] Ordering Provider LAB BLOOD ORDERABLES Performing Organization Address City/State/ZIP Code Phon e Number [facility] HD KINETICS (11/20/2019) athologist Signature % Urea 76 65 - 80 % [facility]PS SPECTRA Reduction [facility] Specimen (Source) Anatomical Collection Method Collection Time Re ceived Time Location / / Volume Laterality 11/20/2019 11/21/2019 1:25 PM CDT Resulting Agency Comment Specimen source: Serum Ernie Pompa MD LAB BLOOD ORDERABLES Performing Organization Address City/[facility]/ZIP Code Phon e Number [facility]PS [facility] POST CHEMISTRY (11/20/2019) athologist Signature BUN Post 12 6 - 19 [facility] Dialysis mg/dL [facility] Specimen (Source) Anatomical Collection Method Collection Time Re ceived Time Location / / Volume Laterality 11/20/2019 11/21/2019 1:14 PM CDT Narrative APS SPECTRA [facility] - 11/21/2019 Unless otherwise specified, test(s) performed at: [facility], [address] [place] [address] HAND LEATHER TRIMMER: Alec Payan M.D. For any questions, please call customer service at FREQUENCY:MONTHLY Resulting Agency Comment Specimen source: Plasma Ernie Pompa MD LAB BLOOD ORDERABLES Performing Organization Address City/[facility]/ZIP Code Phon e Number [facility] IMMUNO CHEMISTRY (11/20/2019) athologist Signature Hep B Surface Negative Negative [facility]RA Ag [facility] Specimen (Source) Anatomical Collection Method Collection Time Re ceived Time Location / / Volume Laterality 11/20/2019 11/21/2019 1:25 PM CDT Resulting Agency Comment Specimen source: Serum Ernie Pompa MD LAB BLOOD ORDERABLES Performing Organization Address City/State/ZIP Code Phon e Number [facility] (ABNORMAL) Spectrae Chemistry (11/20/2019) [facility] Method Time Signature BUN 51 (H) 6 - 19 [facility] mg/dL [facility] Creatinine 4.59 (H) 0.60 - [facility] 1.30 mg/dL [facility] BUN/Creatinine 11.1 10.0 - [facility] Ratio 20.0 [facility] Sodium 138 136 - 145 [facility] mEq/L [facility] Potassium 4.3 3.5 - 5.1 [facility] mEq/L [facility] Chloride 103 96 - 108 [facility] mEq/L [facility] Bicarbonate 22 22 - 29 [facility] (CO2) mEq/L [facility] Calcium 10.2 8.4 - 10.2 [facility] mg/dL [facility] Comment: Custom Exception Corrected Calcium 10.4 (H) 8.4 - 10.2 mg/dL APS S PECTRA [facility] Comment: Corrected Calcium is not equivalent to m easured Ionized Calcium. Phosphorus 4.8 (H) 2.6 - 4.5 mg/dL APS SPECTRA [facility] Calcium Phosphorus Product 49 0 - 54 [facility]PS SPECTRA [facility] Calcium Phosporus Product, Cor 50 0 - 54 [facility] Total Protein 6.6 6.0 - 8.5 g/dL APS S[facility] Albumin 3.8 3.5 - 5.2 g/dL [facility] Globulin, Total 2.8 2.0 - 4.0 g/dL APS SPECT RA [facility] A/G Ratio 1.4 1.0 - 2.0 [facility]PS [facility]RA [facility] Iron 110 45 - 160 mcg/dL APS SPECTRA [facility] UIBC 150 (L) 155 - 355 mcg/dL APS SPECTRA [facility] TIBC 260 185 - 515 mcg/dL APS SPECTRA K [facility] Iron Saturation (TSat) 42 20 - 55 % APS SPE CTRA [facility] Specimen (Source) Anatomical Collection Method Collection Time Re ceived Time Location / / Volume Laterality 11/20/2019 11/21/2019 1:25 PM CDT Narrative APS SPECTRA [facility] - 11/21/2019 Unless otherwise specified, test(s) performed at: [facility], [address] [place] [address] HAND LEATHER TRIMMER: Alec Payan M.D. For any questions, please call customer service at FREQUENCY:MONTHLY Resulting Agency Comment Specimen source: Serum Ernie Pompa MD LAB BLOOD ORDERABLES Performing Organization Address City/State/ZIP Code Phon e Number [facility]PS SPECTRA [facility] (ABNORMAL) HEMATOLOGY (11/20/2019) [facility] gist Method Time Signature WBC 6.23 4.80 - APS SPECTRA 10.80 [facility] 1000/mcL RBC 3.31 (L) 4.70 - APS SPECTRA 6.10 [facility] mill/mcL Hemoglobin 11.1 (L) 14.0 - APS [facility]PECTRA 18.0 g/dL [facility] Hemoglobin x 3 33.3 (L) 42.0 - APS [facility]RA 54.0 % [facility] Hematocrit 33.3 (L) 42.0 - APS SPECTRA 52.0 % [facility] MCV 101 (H) 80 - 100 [facility]PECT[facility] fl [facility] MCH 33.4 (H) 27.0 - [facility]PS [facility] 31.0 pg [facility] MCHC 33.2 30.0 - APS [facility]PECTRA 36.0 g/dL [facility] RDW 16.2 (H) 11.5 - APS [facility]RA 14.5 % [facility] Neutrophils 77.0 (H) 40.0 - APS SPECTRA 75.0 % [facility] Lymphocytes 11.4 (L) 19.0 - A[facility] Relative 48.0 % [facility] Monocytes 7.5 3.0 - 10.0 APS SPECT[facility] % [facility] Eosinophils 2.1 0.0 - 7.0 [facility]PS [facility] Relative % [facility] Basophils 0.3 0.0 - 1.5 [facility] Relative % [facility] YASMIN 1.7 0.0 - 4.0 [facility]PS [facility]PECT[facility] % [facility] Platelets 194 130 - 400 APS [facility]PECTRA 1000/mcL [facility] Specimen (Source) Anatomical Collection Method Collection Time Re ceived Time Location / / Volume Laterality 11/20/2019 11/21/2019 10:3 3 AM CDT Narrative APS SPECTRA [facility] - 11/21/2019 Unless otherwise specified, test(s) performed at: [facility], [address] [place] [address] HAND LEATHER TRIMMER: Alec Payan M.D. For any questions, please call customer service at FREQUENCY:MONTHLY Resulting Agency Comment Specimen source: Blood Ernie Pompa MD LAB BLOOD ORDERABLES Performing Organization Address City/State/ZIP Code Phon e Number APS SPECTRA [facility] documented in this encounter Visit Diagnoses Not on filedocumented in this encounter
--- OUTSIDE RECORDS SUMMARY | 2021-10-27 05:45 | XMS_ITS | Encounter Summary ---
:1945 Author Organization [facility] Address [address] [place] [address] Care Team Providers Name Role Phone Unavailable Primary Care Provider Unavailable Encounter Details Date Type Department Care Team Description 02/05/2020 Orders Only [facility] O f Ernie Guzmán MD [phone] [place] [address] [place], [place] [phone] (Wo rk) Social History Tobacco Use Types Packs/Day Years Used Date Smoking Tobacco: Unknown Comments: Smoking History Info:Patient n ot screened Sex Assigned at Date Recorded Not on file documented as of this encounter Plan of Treatment Not on filedocumented as of this encounter Procedures Procedure Name Priority Date/Time Associated Diagnosis Comme nts HEMATOLOGY Routine 02/05/2020 Results for thi s procedure are in the resu lts section. documented in this encounter Results (ABNORMAL) HEMATOLOGY (02/05/2020) Analysis Performed At Patho logist Time Signature Hemoglobin 11.0 (L) 14.0 - APS SPECTRA 18.0 g/dL [facility] Hemoglobin x 3 33.0 (L) 42.0 - APS [facility]PECTRA 54.0 % [facility] Specimen (Source) Anatomical Collection Method Collection Time Re ceived Time Location / / Volume Laterality 02/05/2020 02/06/2020 10:4 4 AM TEST ENGINEERING INTERN Narrative APS SPECTRA [facility] - 02/06/2020 Unless otherwise specified, test(s) performed at: [facility], [address] [place] [address] SURVEY PROJECT MANAGER: Alec Payan M.D. For any questions, please call customer service at FREQUENCY:OTHER Resulting Agency Comment Specimen source: Blood Ernie Pompa MD LAB BLOOD ORDERABLES Performing Organization Address City/State/ZIP Code Phon e Number APS SPECTRA [facility] documented in this encounter Visit Diagnoses Not on filedocumented in this encounter
--- OUTSIDE RECORDS SUMMARY | 2021-10-27 05:45 | XMS_ITS | Encounter Summary ---
:1945 Author Organization [facility] Address [address] [place] [address] Care Team Providers Name Role Phone Unavailable Primary Care Provider Unavailable Encounter Details Date Type Department Care Team Description 10/16/2019 Orders Only [facility] O f Ernie Guzmán MD [phone] [place] [address] [place], [place] [phone] (Wo rk) Social History Tobacco Use Types Packs/Day Years Used Date Smoking Tobacco: Unknown Comments: Smoking History Info:Patient n ot screened Sex Assigned at Date Recorded Not on file documented as of this encounter Plan of Treatment Not on filedocumented as of this encounter Procedures Procedure Name Priority Date/Time Associated Diagnosis Comme nts HEMATOLOGY Routine 10/16/2019 Results for thi s procedure are in the resu lts section. documented in this encounter Results (ABNORMAL) HEMATOLOGY (10/16/2019) [facility] gist Method Time Signature Neutrophils 74.6 40.0 - APS SPECTRA 75.0 % [facility] Lymphocytes 10.4 (L) 19.0 - APS SPECTRA Relative 48.0 % [facility] Monocytes 9.1 3.0 - 10.0 APS SPECTRA % [facility] Eosinophils 2.4 0.0 - 7.0 APS [facility]RA Relative % [facility] Basophils 1.3 0.0 - 1.5 [facility]PS [facility]RA Relative % [facility] YASMIN 2.2 0.0 - 4.0 APS SPECTRA % [facility] Hemoglobin 11.4 (L) 14.0 - APS S[facility]RA 18.0 g/dL [facility] Hemoglobin x 3 34.2 (L) 42.0 - APS SPECTRA 54.0 % [facility] Specimen (Source) Anatomical Collection Method Collection Time Re ceived Time Location / / Volume Laterality 10/16/2019 10/17/2019 9:31 AM CDT Narrative APS ANDREA [facility] - 10/17/2019 Unless otherwise specified, test(s) performed at: [facility], [address] [place] [id number] HEEL SHAVER: Alec Payan M.D. For any questions, please call customer service at FREQUENCY:OTHER Resulting Agency Comment Specimen source: Blood Ernie Pompa MD LAB BLOOD ORDERABLES Performing Organization Address City/State/ZIP Code Phon e Number APS SPECTRA [facility] documented in this encounter Visit Diagnoses Not on filedocumented in this encounter
--- OUTSIDE RECORDS SUMMARY | 2021-10-27 05:45 | XMS_ITS | Encounter Summary ---
:1945 Author Organization [facility] Address [address] [place] [address] Care Team Providers Name Role Phone Unavailable Primary Care Provider Unavailable Encounter Details Date Type Department Care Team Description 01/29/2020 Treatment [facility] O Ernie Gómez MD [address] [place] [address] [place], [place] [phone] (Wo rk) Social History Tobacco Use Types Packs/Day Years Used Date Smoking Tobacco: Unknown Comments: Smoking History Info:Patient n ot screened Sex Assigned at Date Recorded Not on file documented as of this encounter Miscellaneous Notes Dialysis Note - Ernie Pompa MD - 01/29/2020 9:56 AM CST Date: Jan 29, 2020 Patient Name: Shaun Ocampo : 1945 Chart #: [id number] Sex: M This patient was personally seen for a basic visit as part of routine weekly dialysis care. A reviewof the dialysis treatment, blood pressure, estimated dry weight and recent lab values was made. These were discussed with the patient and staff as necessary. Treatment Data for 01/29/2020 started at:7:38 AM Dialyzer: 180NRe Optiflux Na: 138 mEq/L Bicarb: 26 mEq/L Dialysate: 3.0 K, 2.25 Ca, 1.0 Mg, 100 Dextrose (G3231) Dialysate/Machine Temp (prescribed): 37 C Dialysate/Machine Temp (actual): 37 C BFR (prescribed): 500 BFR (actual): 300 Prescribed time: 04:00 EDW: 105.7 kg Access Type: Active (In Use):AVFistula-Standard/Left Upper Arm Pre Dialysis Vitals (for 01/29/2020 7:25 AM ) Pre BP (sit): 149/87 Pre Wt: 109.6 kg Temp: 97.3 F Post Dialysis Vitals (for 01/27/2020 11:55 AM ) Post BP (sit): 120/45 Post Wt: 106.5 kg Current Dialysis Vitals (for 01/29/2020 9:34 AM ) BP (sit): 133/53 AP(-) / SHOWROOM EXECUTIVE DIRECTOR: 267/328 Pulse: 71 Chairside data as of 01/29/2020 9:34 AM Last 3 Treatments 01/27/2020 01/24/2020 01/22/2020 EDW (kg) 105.7 105.7 105.7 Weight Pre (kg) 111.6 110.9 110.3 Weight Post (kg) 106.5 106.3 106 Dialytic Weight Loss (kg) -5.1 -4.6 -4.3 EDW Deviation (kg) 0.8 0.6 0.3 BP Sit Pre 138/54 151/68 139/68 BP Sit Post 120/45 137/57 126/65 UF Rate (mL/kg/hr) 12 11 10 Prescribed BFR 500 500 500 Average Delivered BFR 450 420 500 Prescribed Treatment Time 04:00 04:00 04:00 Actual Treatment Time 04:03 04:02 04:02 Last 3 Values 01/24/2020 12/20/2019 11/22/2019 Access [...] 10/28/2019 10/19/2020 Mircera 50 mcg IVP Every 2 weeks During Dialysis 01/22/2020 01/20/2021 INDUSTRIAL [employer]MICALS SUPERVISOR: Ernie Pompa MD LOCATION: [facility] [phone] SCHEDULE: M-W-F 2nd Shift ACCESS: EDW: kg. DIALYZER: HD DURATION: NEEDLE SIZE: ANTICOAG: BATH: QB: ml/min QD: ml/min Subjective Tolerating dialysis well. 01/28: Shaun is doing really well, tolerating [...] He had infiltration last week, dialyzed at [facility] on Sat and went well, access [...] and no changes were made. BUN mg/dL 70 (01/22/20) 53 (01/01/20) 48 [...] (01/01/20) 1.7400 (11/20/19) 1.7000 (10/28/19) 1.7600 (09/18/19) HEMOGLOBIN (G/DL) IN BLOOD g/dL 10.3 (01/22/20) 11.0 (01/15/20) 11.4 (01/08/20) 11.6 (01/01/20) 11.3 (12/25/19) PLATELETS 1000/mcL 158 (01/22/20) 157 (12/25/19) 194 (11/20/19) 174 (10/23/19) 200 (09/18/19) IRON SATURATION % 48 (01/22/20) 45 (12/25/19) 42 (11/20/19) 40 (10/23/19) 34 (09/18/19) FERRITIN ng/mL 732 (12/25/19) 844 (09/18/19) 200 (07/29/19) 134 (06/19/19) 252 (05/29/19) ALBUMIN (G/DL) g/dL 3.6 (01/22/20) 3.8 (12/25/19) 3.8 (11/20/19) Sodium mEq/L 135 (01/22/20) 137 (12/25/19) 138 (11/20/19) POTASSIUM (MMOL/L) IN SER/PLAS mEq/L 4.4 (01/22/20) 4.8 (12/25/19) 4.3 (11/20/19) BICARBONATE (CO2) mEq/L 21 (01/22/20) 22 (12/25/19) 22 (11/20/19) 25 OH VITAMIN D ng/mL 62.4 (09/18/19) 44.4 (05/01/19) BUN/CREATININE (MASS RATIO) IN SER/PLAS 12.9 (01/22/20) 9.3 (12/25/19) 11.1 (11/20/19) Calcium mg/dL 9.7 (01/22/20) 10.0 (12/25/19) 10.0 (12/04/19) Calcium Phos Product 62 (01/22/20) 61 (12/25/19) 49 (11/20/19) CALCIUM (MG/DL) CORRECTED FOR ALBUMIN IN SER/PLAS mg/dL 10.0 (01/22/20) 10.2 (12/25/19) 10.4 (11/20/19) PHOSPHATE (MG/DL) IN SER/PLAS mg/dL 6.4 (01/22/20) 6.1 (12/25/19) 4.8 (11/20/19) IPTH pg/mL 506 (12/25/19) 167 (09/18/19) 164 (07/24/19) Vascular Access Assessment: Type of access: [id number] Surgeon - Lary GARDNER Access working well Impression and Plan No changes, stable dialysis Discussed lowering phos in diet today and will use binder next month if not in control Ernie Pompa MD [ Signed And locked electronically On 01/29/2020 at 09:57:54 AM ] Transcribed: Ernie Pompa ( 01/29/2020 ) documented in this encounter Plan of Treatment Not on filedocumented as of this encounter Visit Diagnoses Not on filedocumented in this encounter
--- OUTSIDE RECORDS SUMMARY | 2021-10-27 05:45 | XMS_ITS | Encounter Summary ---
:1945 Author Organization [facility] Address [address] [place] [address] Care Team Providers Name Role Phone Unavailable Primary Care Provider Unavailable Encounter Details Date Type Department Care Team Description 04/01/2020 Orders Only [facility] O f Ernie Guzmán MD [phone] [place] [address] [place], [place] [phone] (Wo rk) Social History Tobacco Use Types Packs/Day Years Used Date Smoking Tobacco: Unknown Comments: Smoking History Info:Patient n ot screened Sex Assigned at Date Recorded Not on file documented as of this encounter Plan of Treatment Not on filedocumented as of this encounter Procedures Procedure Name Priority Date/Time Associated Diagnosis Comme nts HEMATOLOGY Routine 04/01/2020 Results for thi s procedure are in the resu lts section. documented in this encounter Results (ABNORMAL) HEMATOLOGY (04/01/2020) Analysis Performed At Patho logist Time Signature Hemoglobin 10.1 (L) 14.0 - APS SPECTRA 18.0 g/dL [facility] Hemoglobin x 3 30.3 (L) 42.0 - APS SPECTRA 54.0 % [facility] Specimen (Source) Anatomical Collection Method Collection Time Re ceived Time Location / / Volume Laterality 04/01/2020 04/02/2020 2:28 PM LOCK FITTER Narrative APS SPECTRA [facility] - 04/02/2020 Unless otherwise specified, test(s) performed at: [facility], [address] [place] [address] WATER JET LOOM FIXER: Alec Payan M.D. For any questions, please call customer service at FREQUENCY:OTHER Resulting Agency Comment Specimen source: Blood Ernie Pompa MD LAB BLOOD ORDERABLES Performing Organization Address City/State/ZIP Code Phon e Number APS SPECTRA [facility] documented in this encounter Visit Diagnoses Not on filedocumented in this encounter
--- OUTSIDE RECORDS SUMMARY | 2021-10-27 05:45 | XMS_ITS | Encounter Summary ---
:1945 Author Organization [facility] Address [address] [place] [address] Care Team Providers Name Role Phone Unavailable Primary Care Provider Unavailable Encounter Details Date Type Department Care Team Description 02/12/2020 Orders Only [facility] O f Ernie Guzmán MD [address] [place] [address] [place], [place] [phone] (Wo rk) Social History Tobacco Use Types Packs/Day Years Used Date Smoking Tobacco: Unknown Comments: Smoking History Info:Patient n ot screened Sex Assigned at Date Recorded Not on file documented as of this encounter Plan of Treatment Not on filedocumented as of this encounter Procedures Procedure Name Priority Date/Time Associated Diagnosis Comme nts HEMATOLOGY Routine 02/12/2020 Results for thi s procedure are in the resu lts section. documented in this encounter Results (ABNORMAL) HEMATOLOGY (02/12/2020) Analysis Performed At Patho logist Time Signature Hemoglobin 11.2 (L) 14.0 - APS SPECTRA 18.0 g/dL [facility] Hemoglobin x 3 33.6 (L) 42.0 - APS SPECTRA 54.0 % [facility] Specimen (Source) Anatomical Collection Method Collection Time Re ceived Time Location / / Volume Laterality 02/12/2020 02/14/2020 12:5 9 PM JANITORIAL SUPERVISOR Narrative APS SPECTRA [facility] - 02/14/2020 Unless otherwise specified, test(s) performed at: [facility], [address] [place] [id number] PRODUCT INSPECTION COORDINATOR: Alec Payan M.D. For any questions, please call customer service at FREQUENCY:OTHER Resulting Agency Comment Specimen source: Blood Ernie Pompa MD LAB BLOOD ORDERABLES Performing Organization Address City/State/ZIP Code Phon e Number APS SPECTRA [facility] documented in this encounter Visit Diagnoses Not on filedocumented in this encounter
--- OUTSIDE RECORDS SUMMARY | 2021-10-27 05:45 | XMS_ITS | Encounter Summary ---
:1945 Author Organization [facility] Address [address] [place] [address] Care Team Providers Name Role Phone Unavailable Primary Care Provider Unavailable Encounter Details Date Type Department Care Team Description 03/25/2020 Treatment [facility] f Ernie Guzmán MD [address] [place] [address] [place], [place] [phone] (Wo rk) Social History Tobacco Use Types Packs/Day Years Used Date Smoking Tobacco: Unknown Comments: Smoking History Info:Patient n ot screened Sex Assigned at Date Recorded Not on file documented as of this encounter Miscellaneous Notes Dialysis Note - Ernie Pompa MD - 03/25/2020 10:39 AM CST Date: Mar 25, 2020 Patient Name: Shaun Ocampo : 1945 Chart #: [id number] Sex: M This patient was personally seen for a complete visit as part of routine monthly dialysis care. A review of the dialysis treatment, blood pressure, estimated dry weight and recent lab values was made. These were discussed with the patient and staff as necessary. Treatment Data for 03/25/2020 started at:9:25 AM Dialyzer: 180NRe Optiflux Na: 138 mEq/L Bicarb: 28 mEq/L Dialysate: 2.0 K, 2.25 Ca, 1.0 Mg, 100 Dextrose (G2231) Dialysate/Machine Temp (prescribed): 37 C Dialysate/Machine Temp (actual): 36.9 C BFR (prescribed): 500 BFR (actual): 500 Prescribed time: 04:00 EDW: 105.7 kg Access Type: Active (In Use):AVFistula-Standard/Left Upper Arm Pre Dialysis Vitals (for 03/25/2020 9:16 AM ) Pre BP (sit): 131/57 Pre Wt: 110.9 kg Temp: 97 F Post Dialysis Vitals (for 03/23/2020 1:25 PM ) Post BP (sit): 108/49 Post Wt: 108 kg Current Dialysis Vitals (for 03/25/2020 10:05 AM ) BP (sit): 115/62 AP(-) / PRORATION CLERK: 248/203 Pulse: 72 Chairside data as of 03/25/2020 10:05 AM Last 3 Treatments 03/23/2020 03/21/2020 03/18/2020 EDW (kg) 105.7 105.7 105.7 Weight Pre (kg) 112.9 111.4 109.7 Weight Post (kg) 108 107.9 105.9 Dialytic Weight Loss (kg) -4.9 -3.5 -3.8 EDW Deviation (kg) 2.3 2.2 0.2 BP Sit Pre 154/70 137/61 143/67 BP Sit Post 108/49 121/53 110/61 UF Rate (mL/kg/hr) 11 8 9 Prescribed BFR 500 500 500 Average Delivered BFR 510 510 460 Prescribed Treatment Time 04:00 04:00 04:00 Actual Treatment Time 04:05 04:00 04:00 Last 3 Values 02/21/2020 01/24/2020 12/20/2019 Access Flow > 2000 > 2000 > 2000 Treatment Medication Orders Medication Sig Start Date End Date Iron Sucrose (Venofer) 50 mg IVP 1X Week During Dialysis 10/28/2019 10/19/2020 Mircera 30 mcg IVP Every 4 weeks During Dialysis 03/18/2020 03/17/2021 COW TRIMMER: Ernie Pompa MD LOCATION: [phone] SCHEDULE: M-W-F 2nd Shift EDW: kg. DIALYZER: HD DURATION: NEEDLE SIZE: ANTICOAG: BATH: QB: ml/min QD: ml/min Subjective Tolerating dialysis well. Good appetite. Reports no trouble with access. 03/25: He feels great, doing very well [...] He had infiltration last week, dialyzed at [facility] on Sat and went well, access ok [...] made. Treatment and Adequacy Assessment BUN mg/dL 57 (02/19/20) 70 (01/22/20) 53 (01/01/20) 48 (12/25/19) 51 (11/20/19) UREA NITROGEN (MG/DL) IN SER/PLAS - POST DIALYSIS mg/dL 13 (02/19/20) 16 (01/22/20) 12 (01/01/20) <^2 (12/25/19) 12 (11/20/19) URR % 77 (02/19/20) 77 (01/22/20) 77 (01/01/20) 76 (11/20/19) 76 (10/28/19) spKt/V Gotch 1.87 (01/01/20) 1.83 (11/20/19) 1.74 (10/28/19) 1.79 (09/18/19) 1.63 (08/21/19) eKdrt/V 1.62 (01/01/20) 1.59 (11/20/19) 1.51 (10/28/19) 1.56 (09/18/19) 1.42 (08/21/19) spKt/V (Daugirdas II) 1.7600 (02/19/20) 1.7800 (01/22/20) 1.7800 (01/01/20) 1.7400 (11/20/19) 1.7000 (10/28/19) Dialysis is adequate. Achieves prescribed time - Yes Achieves prescribed frequency - Yes Continue current prescription. Vascular Access Assessment Type of access: Prwwbuq42/2019 Surgeon - Lary KUMARW Access working well Anemia Assessment HEMOGLOBIN (G/DL) IN BLOOD g/dL 10.7 (03/16/20) 10.6 (03/09/20) 11.4 (03/04/20) 10.8 (02/26/20) 11.6 (02/19/20) PLATELETS 1000/mcL 190 (02/19/20) 158 (01/22/20) 157 (12/25/19) 194 (11/20/19) 174 (10/23/19) IRON SATURATION % 40 (02/19/20) 48 (01/22/20) 45 (12/25/19) 42 (11/20/19) 40 (10/23/19) FERRITIN ng/mL 912 (01/29/20) 732 (12/25/19) 844 (09/18/19) 200 (07/29/19) 134 (06/19/19) Hemoglobin is at goal. Iron Saturation is at goal. Ferritin is at goal. Will adjust NATALEE and intravenous iron per protocol. Nutritional and Metabolic Assessment ALBUMIN (G/DL) g/dL 4.0 (02/19/20) 3.6 (01/22/20) 3.8 (12/25/19) 3.8 (11/20/19) 3.8 (10/23/19) Sodium mEq/L 139 (02/19/20) 135 (01/22/20) 137 (12/25/19) 138 (11/20/19) 137 (10/23/19) POTASSIUM (MMOL/L) IN SER/PLAS mEq/L 5.1 (02/19/20) 4.4 (01/22/20) 4.8 (12/25/19) 4.3 (11/20/19) 4.0 (10/23/19) BICARBONATE (CO2) mEq/L 19 (02/19/20) 21 (01/22/20) 22 (12/25/19) 22 (11/20/19) 21 (10/23/19) 25 OH VITAMIN D ng/mL 62.4 (09/18/19) 44.4 (05/01/19) Albumin is at goal. Encourage high-biological value protein intake. Potassium is at goal. Bicarbonate is below goal. Continue same bicarbonate in dialysate. repeat bicarb today Bone and Mineral Metabolism Assessment Calcium mg/dL 10.0 (02/19/20) 9.7 (01/22/20) 10.0 (12/25/19) 10.0 (12/04/19) 10.2 (11/20/19) CALCIUM (MG/DL) CORRECTED FOR ALBUMIN IN SER/PLAS mg/dL 10.0 (02/19/20) 10.0 (01/22/20) 10.2 (12/25/19) 10.4 (11/20/19) 10.4 (10/23/19) PHOSPHATE (MG/DL) IN SER/PLAS mg/dL 5.8 (02/19/20) 6.4 (01/22/20) 6.1 (12/25/19) 4.8 (11/20/19) 5.7 (10/23/19) CALCIUM PHOSPHORUS PRODUCT, COR 58 (02/19/20) 64 (01/22/20) 62 (12/25/19) 50 (11/20/19) 59 (10/23/19) IPTH pg/mL 506 (12/25/19) 167 (09/18/19) 164 (07/24/19) 199 (06/19/19) 351 (05/01/19) Corrected Calcium is above goal. Phosphorous is above goal. Intact PTH is at goal. Sports Athletic Trainer will adjust binders and vitamin D per [...] Resuscitation Status Lower IDWG's discussed again today Labs today Stable dialysis otherwise with no changes to prescription Ernie Pompa MD [ Signed And locked electronically On 03/25/2020 at 10:42:40 AM ] Transcribed: Ernie Pompa ( 03/25/2020 ) documented in this encounter Plan of Treatment Not on filedocumented as of this encounter Visit Diagnoses Not on filedocumented in this encounter
--- OUTSIDE RECORDS SUMMARY | 2021-10-27 05:45 | XMS_ITS | Encounter Summary ---
:1945 Author Organization [facility] Address [address] [place] [address] Care Team Providers Name Role Phone Unavailable Primary Care Provider Unavailable Encounter Details Date Type Department Care Team Description 02/19/2020 Orders Only [facility] f Ernie Guzmán MD [phone] [place] [address] [place], [place] [phone] (Wo rk) Social History Tobacco Use Types Packs/Day Years Used Date Smoking Tobacco: Unknown Comments: Smoking History Info:Patient n ot screened Sex Assigned at Date Recorded Not on file documented as of this encounter Plan of Treatment Not on filedocumented as of this encounter Procedures Procedure Name Priority Date/Time Associated Diagnosis Comme nts HD KINETICS Routine 02/19/2020 Results for thi s procedure are i n the results section . POST CHEMISTRY Routine 02/19/2020 Results for t his procedure are i n the results section . IMMUNO CHEMISTRY Routine 02/19/2020 Results for this procedure are i n the results section . HEMATOLOGY Routine 02/19/2020 Results for thi s procedure are i n the results section . CHEMISTRY Routine 02/19/2020 Results for thi s procedure are i n the results section . SPECTRA [facility] LAB RESULTS Routine 02/19/2020 Resul ts for this procedure are i n the results section . documented in this encounter Results Spectra [facility] Lab Results (02/19/2020) P athologist Signature spKt/V 1.76 [facility] (Daugirdas II) PCR 75.43 [facility] eKt/V Gotch 1.60 [facility] eKdrt/V 1.60 [facility] eNPCR 1.05 [facility] eKt/V 1.53 [facility] ([place]) spKt/V Gotch 1.84 [facility] nPCR_HD 1.12 [facility] Specimen (Source) Anatomical Location Collection Method / Collectio n Time Received Time / Laterality Volume 02/19/2020 02/19/2020 [facility] Ordering Provider LAB BLOOD ORDERABLES Performing Organization Address City/State/ZIP Code Phon e Number [facility] HD KINETICS (02/19/2020) P athologist Signature % Urea 77 65 - 80 % [facility]PS SPECTRA Reduction [facility] Specimen (Source) Anatomical Collection Method Collection Time Re ceived Time Location / / Volume Laterality 02/19/2020 02/20/2020 6:44 PM REMELT SUGAR BOILER Resulting Agency Comment Specimen source: Plasma Ernie Pompa MD LAB BLOOD ORDERABLES Performing Organization Address City/State/ZIP Code Phon e Number [facility]PS [facility] POST CHEMISTRY (02/19/2020) P athologist Signature BUN Post 13 6 - 19 [facility] Dialysis mg/dL [facility] Specimen (Source) Anatomical Collection Method Collection Time Re ceived Time Location / / Volume Laterality 02/19/2020 02/20/2020 6:39 PM REMELT SUGAR BOILER Narrative [facility]PS SPECTRA [facility] - 02/21/2020 Unless otherwise specified, test(s) performed at: [facility], [address] [place] [address] FIRST CALENDER WORKER: Alec Payan M.D. For any questions, please call customer service at FREQUENCY:MONTHLY Resulting Agency Comment Specimen source: Plasma Ernie Pompa MD LAB BLOOD ORDERABLES Performing Organization Address City/[facility]/ZIP Code Phon e Number [facility]PS S[facility]RA [facility] (ABNORMAL) HEMATOLOGY (02/19/2020) Analysis Performed At Patho logist Time Signature WBC 5.40 4.80 - [facility] 10.80 [facility] 1000/mcL RBC 3.28 (L) 4.70 - [facility] 6.10 [facility] mill/mcL Hemoglobin 11.6 (L) 14.0 - [facility] 18.0 g/dL [facility] Hemoglobin x 3 34.8 (L) 42.0 - [facility] 54.0 % [facility] Hematocrit 34.0 (L) 42.0 - [facility] 52.0 % [facility] MCV 104 (H) 80 - 100 [facility] SPECT[facility] fl [facility] MCH 35.4 (H) 27.0 - [facility] 31.0 pg [facility] MCHC 34.1 30.0 - [facility] 36.0 g/dL [facility] RDW 15.4 (H) 11.5 - [facility] 14.5 % [facility] Platelets 190 130 - 400 [facility] 1000/mcL [facility] Specimen (Source) Anatomical Collection Method Collection Time Re ceived Time Location / / Volume Laterality 02/19/2020 02/20/2020 10:1 5 AM REMELT SUGAR BOILER Narrative APS SPECTRA [facility] - 02/20/2020 Unless otherwise specified, test(s) performed at: [facility], [address] [place], [place] [id number] FIRST CALENDER WORKER: Alec Payan M.D. For any questions, please call customer service at FREQUENCY:MONTHLY Resulting Agency Comment Specimen source: Blood Ernie Pompa MD LAB BLOOD ORDERABLES Performing Organization Address City/State/ZIP Code Phon e Number APS SPECTRA [facility] IMMUNO CHEMISTRY (02/19/2020) P athologist Signature Hep B Surface Negative Negative [facility]PS [facility]PECT[facility] Ag [facility] Specimen (Source) Anatomical Collection Method Collection Time Re ceived Time Location / / Volume Laterality 02/19/2020 02/20/2020 10:4 6 AM REMELT SUGAR BOILER Resulting Agency Comment Specimen source: Serum Ernie Pompa MD LAB BLOOD ORDERABLES Performing Organization Address City/State/ZIP Code Phon e Number APS SPECTRA [facility] (ABNORMAL) Spectrae Chemistry (02/19/2020) Patholo gist Method Time Signature BUN 57 (H) 6 - 19 APS S[facility]RA mg/dL [facility] Creatinine 6.11 (H) 0.60 - APS SPECTRA 1.30 mg/dL [facility] BUN/Creatinine 9.3 (L) 10.0 - APS SPECTRA Ratio 20.0 [facility] Sodium 139 136 - 145 APS SPECTRA mEq/L [facility] Potassium 5.1 3.5 - 5.1 [facility] mEq/L [facility] Chloride 103 96 - 108 APS [facility]RA mEq/L [facility] Bicarbonate 19 (L) 22 - 29 APS SPECTRA (CO2) mEq/L [facility] Calcium 10.0 8.4 - 10.2 APS SPECTRA mg/dL [facility] Corrected 10.0 8.4 - 10.2 APS SPECTRA Calcium mg/dL [facility] Comment: Corrected Calcium is not equivalent to m easured Ionized Calcium. Phosphorus 5.8 (H) 2.6 - 4.5 mg/dL APS SPECTRA K [facility] Calcium Phosphorus Product 58 (H) 0 - 54 APS SPECTRA [facility] Calcium Phosporus Product, Cor 58 (H) 0 - 54 APS SPECTRA [facility] Total Protein 6.5 6.0 - 8.5 g/dL APS SPECTRA [facility] Albumin 4.0 3.5 - 5.2 g/dL [facility]PS SPECTRA [facility] Globulin, Total 2.5 2.0 - 4.0 g/dL APS SPECT RA [facility] A/G Ratio 1.6 1.0 - 2.0 APS SPECTRA [facility] Iron 110 45 - 160 mcg/dL APS SPECTRA [place] [facility] UIBC 168 155 - 355 mcg/dL APS SPECTRA K [facility] TIBC 278 185 - 515 mcg/dL APS SPECTRA K [facility] Iron Saturation (TSat) 40 20 - 55 % APS SPE CTRA [facility] Specimen (Source) Anatomical Collection Method Collection Time Re ceived Time Location / / Volume Laterality 02/19/2020 02/20/2020 10:4 6 AM REMELT SUGAR BOILER Narrative APS SPECTRA [facility] - 02/20/2020 Unless otherwise specified, test(s) performed at: [facility], [address] [place] [address] FIRST CALENDER WORKER: Alec Payan M.D. For any questions, please call customer service at FREQUENCY:MONTHLY Resulting Agency Comment Specimen source: Serum Ernie Pompa MD LAB BLOOD ORDERABLES Performing Organization Address City/State/ZIP Code Phon e Number APS SPECTRA [facility] documented in this encounter Visit Diagnoses Not on filedocumented in this encounter
--- OUTSIDE RECORDS SUMMARY | 2021-10-27 05:45 | XMS_ITS | Encounter Summary ---
:1945 Author Organization [facility] Address [address] [place] [address] Care Team Providers Name Role Phone Unavailable Primary Care Provider Unavailable Encounter Details Date Type Department Care Team Description 11/06/2019 Treatment [facility] O Ernie Gómez MD [address] [place] [address] [place], [place] [phone] (Wo rk) Social History Tobacco Use Types Packs/Day Years Used Date Smoking Tobacco: Unknown Comments: Smoking History Info:Patient n ot screened Sex Assigned at Date Recorded Not on file documented as of this encounter Miscellaneous Notes Dialysis Note - Ernie Pompa MD - 11/06/2019 12:22 PM CDT Date: Nov 06, 2019 Patient Name: Shaun Ocampo : 1945 Chart #: [id number] Sex: M This patient was personally seen for a complete visit as part of routine monthly dialysis care. A review of the dialysis treatment, blood pressure, estimated dry weight and recent lab values was made. These were discussed with the patient and staff as necessary. Treatment Data for 11/06/2019 started at:10:47 AM Dialyzer: 180NRe Optiflux Na: 138 mEq/L Bicarb: 26 mEq/L Dialysate: 3.0 K, 2.25 Ca, 1.0 Mg, 100 Dextrose (G3231) Dialysate/Machine Temp (prescribed): 37 C Dialysate/Machine Temp (actual): 37 C BFR (prescribed): 500 BFR (actual): 500 Prescribed time: 4:0 EDW: 106 kg Access Type: Active (In Use):AVFistula-Standard/Left Upper Arm Pre Dialysis Vitals (for 11/06/2019 10:31 AM ) Pre BP (sit): 153/60 Pre Wt: 110.6 kg Temp: 97.7 F Post Dialysis Vitals (for 11/04/2019 2:56 PM ) Post BP (sit): 126/55 Post Wt: 106.6 kg Current Dialysis Vitals (for 11/06/2019 12:02 PM ) BP (sit): 139/63 AP(-) / TANK WORKER: 235/181 Pulse: 64 Chairside data as of 11/06/2019 12:02 PM Last 3 Treatments 11/04/2019 11/01/2019 10/30/2019 EDW (kg) 106 106 106 Weight Pre (kg) 110.7 108.8 109.5 Weight Post (kg) 106.6 105.2 105.6 Dialytic Weight Loss (kg) -4.1 -3.6 -3.9 EDW Deviation (kg) 0.6 -0.8 -0.4 BP Sit Pre 148/67 162/67 136/65 BP Sit Post 126/55 134/55 116/56 UF Rate (mL/kg/hr) 10 8 9 Prescribed BFR 500 500 500 Average Delivered BFR 510 500 510 Prescribed Treatment Time 4:0 4:0 4:0 Actual Treatment Time 04:03 04:00 03:54 Last 3 Values 10/25/2019 09/27/2019 08/23/2019 Access Flow 1011 1591 > 2000 Treatment Medication Orders Medication Sig Start Date End Date Heparin Sodium (Porcine) 1,000 Units/mL Systemic 2000 units IVP Every Treatment 05/01/2019 04/29/2020 Heparin Sodium (Porcine) 1,000 Units/mL Systemic 1000 units IVP Every Treatment 05/01/2019 04/29/2020 Iron Sucrose (Venofer) 50 mg IVP 1X Week During Dialysis 10/28/2019 10/19/2020 KAIAWHINA KURA KAUPAPA MAORI: Ernie Pompa MD LOCATION: [phone] SCHEDULE: M-W- 2nd Shift EDW: kg. DIALYZER: HD DURATION: NEEDLE SIZE: ANTICOAG: BATH: QB: ml/min QD: ml/min Subjective Tolerating dialysis well. 11/05: He feels excellent and is doing well overall with no new symptoms today, stable dialysis. 10/08: He feels well, but had minor fall when bending over, no injuries, has tray on his walker now so things don't fall. Continue to challenge EDW, pant size from 50 to 44! Feels better and better. 09/24: He had infiltration last week, dialyzed at [facility] on Sat and went well, access ok [...] Regular rhythm. Edema - 1+ leg edema. improving. Access - AVF intact with needles in [...] 1/2 tablet by mouth once a day Triphrocaps (b complex with c 20-folic acid) [...] prescription. Vascular Access Assessment Type of access: Nfulggj03/2019 Surgeon - Lary KUMARW Access working well Anemia Assessment HEMOGLOBIN (G/DL) IN BLOOD g/dL 10.3 (11/04/19) 11.6 (10/23/19) 11.4 (10/16/19) 11.2 (10/09/19) 11.8 (10/02/19) PLATELETS 1000/mcL 174 (10/23/19) 200 (09/18/19) 208 [...] Bone and Mineral Metabolism Assessment Calcium mg/dL 10.2 (10/23/19) 9.7 (10/09/19) 10.3 (09/18/19) 9.7 (08/21/19) 10.0 (07/24/19) CALCIUM (MG/DL) CORRECTED FOR ALBUMIN IN SER/PLAS [...] above goal. Intact PTH is below goal. An/Syq 13 Nav/C2 Operator will adjust binders and vitamin D per protocol and continue to provide dietary education. Stop OTC Ca-D that he was taking Will start Renvela Cardiovascular Assessment Blood pressures reviewed and are acceptable. Intradialytic weight gains are appropriate. Estimated dry weight is appropriate. Continue to challenged dry weight as tolerated Transplant Status: Patient is not a candidate. Weight, co-morbidities Resuscitation Status Tolerating dialysis well, no changes to prescription Stop Ca-D tablet that he is taking at home Start Renvela one with meals Ernie Pompa MD [ Signed And locked electronically On 11/06/2019 at 12:24:40 PM ] Transcribed: Ernie Pompa ( 11/06/2019 ) documented in this encounter Plan of Treatment Not on filedocumented as of this encounter Visit Diagnoses Not on filedocumented in this encounter
--- OUTSIDE RECORDS SUMMARY | 2021-10-27 05:45 | XMS_ITS | Encounter Summary ---
:1945 Author Organization [facility] Address [address] [place] [address] Care Team Providers Name Role Phone Unavailable Primary Care Provider Unavailable Encounter Details Date Type Department Care Team Description 11/04/2019 Orders Only [facility] O f Ernie Guzmán MD [address] [place] [address] [place], [place] [phone] (Wo rk) Social History Tobacco Use Types Packs/Day Years Used Date Smoking Tobacco: Unknown Comments: Smoking History Info:Patient n ot screened Sex Assigned at Date Recorded Not on file documented as of this encounter Plan of Treatment Not on filedocumented as of this encounter Procedures Procedure Name Priority Date/Time Associated Diagnosis Comme nts HEMATOLOGY Routine 11/04/2019 Results for thi s procedure are in the resu lts section. documented in this encounter Results (ABNORMAL) HEMATOLOGY (11/04/2019) [facility] gist Method Time Signature Neutrophils 77.4 (H) 40.0 - APS SPECTRA 75.0 % [facility] Lymphocytes 10.5 (L) 19.0 - APS SPECTRA Relative 48.0 % [facility] Monocytes 7.9 3.0 - 10.0 APS SPECTRA % [facility] Eosinophils 1.3 0.0 - 7.0 APS SPECTRA Relative % [facility] Basophils 0.4 0.0 - 1.5 APS SPECTRA Relative % [facility] YASMIN 2.6 0.0 - 4.0 APS SPECTRA % [facility] Hemoglobin 10.3 (L) 14.0 - APS SPECTRA 18.0 g/dL [facility] Hemoglobin x 3 30.9 (L) 42.0 - APS SPECTRA 54.0 % [facility] Specimen (Source) Anatomical Collection Method Collection Time Re ceived Time Location / / Volume Laterality 11/04/2019 11/05/2019 2:02 PM CDT Narrative APS SPECTRA [facility] - 11/05/2019 Unless otherwise specified, test(s) performed at: [facility], [address] [place] [address] REPAIRER VENEER SHEET: Alec Payan M.D. For any questions, please call customer service at FREQUENCY:OTHER Resulting Agency Comment Specimen source: Blood Ernie Pompa MD LAB BLOOD ORDERABLES Performing Organization Address City/State/ZIP Code Phon e Number APS SPECTRA [facility] documented in this encounter Visit Diagnoses Not on filedocumented in this encounter
--- OUTSIDE RECORDS SUMMARY | 2021-10-27 05:45 | XMS_ITS | Encounter Summary ---
:1945 Author Organization [facility] Address [address] [place] [address] Care Team Providers Name Role Phone Unavailable Primary Care Provider Unavailable Encounter Details Date Type Department Care Team Description 12/04/2019 Orders Only [facility] O f Ernie Guzmán MD [address] [place] [address] [place], [place] [phone] (Wo rk) Social History Tobacco Use Types Packs/Day Years Used Date Smoking Tobacco: Unknown Comments: Smoking History Info:Patient n ot screened Sex Assigned at Date Recorded Not on file documented as of this encounter Plan of Treatment Not on filedocumented as of this encounter Procedures Procedure Name Priority Date/Time Associated Diagnosis Comme nts HEMATOLOGY Routine 12/04/2019 Results for thi s procedure are in the resu lts section. CHEMISTRY Routine 12/04/2019 Results for thi s procedure are in the resu lts section. documented in this encounter Results Spectrae Chemistry (12/04/2019) P athologist Signature Calcium 10.0 8.4 - 10.2 APS SPECTRA mg/dL [facility] Specimen (Source) Anatomical Collection Method Collection Time Re ceived Time Location / / Volume Laterality 12/04/2019 12/05/2019 9:24 AM CDT Narrative APS SPECTRA [facility] - 12/05/2019 Unless otherwise specified, test(s) performed at: [facility], [address] [place] [id number] STONE BREAKER: Alec Payan M.D. For any questions, please call customer service at FREQUENCY:OTHER Resulting Agency Comment Specimen source: Serum Ernie Pompa MD LAB BLOOD ORDERABLES Performing Organization Address City/State/ZIP Code Phon e Number APS SPECTRA [facility] (ABNORMAL) HEMATOLOGY (12/04/2019) Patholo gist Method Time Signature Neutrophils 72.2 40.0 - APS SPECTRA 75.0 % [facility] Lymphocytes 13.4 (L) 19.0 - APS SPECTRA Relative 48.0 % [facility] Monocytes 9.1 3.0 - 10.0 APS SPECTRA % [facility] Eosinophils 2.3 0.0 - 7.0 APS SPECTRA Relative % [facility] Basophils 0.5 0.0 - 1.5 APS SPECTRA Relative % [facility] YASMIN 2.4 0.0 - 4.0 APS SPECTRA % [facility] Hemoglobin 11.0 (L) 14.0 - APS SPECTRA 18.0 g/dL [facility] Hemoglobin x 3 33.0 (L) 42.0 - APS SPECTRA 54.0 % [facility] Specimen (Source) Anatomical Collection Method Collection Time Re ceived Time Location / / Volume Laterality 12/04/2019 12/05/2019 9:14 AM CDT Narrative APS SPECTRA [facility] - 12/05/2019 Unless otherwise specified, test(s) performed at: [facility], [address] [place] [id number] STONE BREAKER: Alec Payan M.D. For any questions, please call customer service at FREQUENCY:OTHER Resulting Agency Comment Specimen source: Blood Ernie Pompa MD LAB BLOOD ORDERABLES Performing Organization Address City/[facility] Code Phon e Number APS SPECTRA [facility] documented in this encounter Visit Diagnoses Not on filedocumented in this encounter
--- OUTSIDE RECORDS SUMMARY | 2021-10-27 05:45 | XMS_ITS | Encounter Summary ---
:1945 Author Organization [facility] Address [address] [place] [address] Care Team Providers Name Role Phone Unavailable Primary Care Provider Unavailable Encounter Details Date Type Department Care Team Description 12/25/2019 Treatment [facility] Ernie Gómez MD [address] [place] [address] [place], [place] [phone] (Wo rk) Social History Tobacco Use Types Packs/Day Years Used Date Smoking Tobacco: Unknown Comments: Smoking History Info:Patient n ot screened Sex Assigned at Date Recorded Not on file documented as of this encounter Miscellaneous Notes Dialysis Note - Ernie Pompa MD - 12/25/2019 11:33 AM CDT Date: Dec 25, 2019 Patient Name: Shaun Ocampo : 1945 Chart #: [id number] Sex: M This patient was personally seen for a complete visit as part of routine monthly dialysis care. A review of the dialysis treatment, blood pressure, estimated dry weight and recent lab values was made. These were discussed with the patient and staff as necessary. Treatment Data for 12/25/2019 started at:10:41 AM Dialyzer: 180NRe Optiflux Na: 138 mEq/L Bicarb: 26 mEq/L Dialysate: 3.0 K, 2.25 Ca, 1.0 Mg, 100 Dextrose (G3231) Dialysate/Machine Temp (prescribed): 37 C Dialysate/Machine Temp (actual): 37 C BFR (prescribed): 500 BFR (actual): 500 Prescribed time: 04:00 EDW: 105.7 kg Access Type: Active (In Use):AVFistula-Standard/Left Upper Arm Pre Dialysis Vitals (for 12/25/2019 10:34 AM ) Pre BP (sit): 149/67 Pre Wt: 109.6 kg Temp: 97.8 F Post Dialysis Vitals (for 12/23/2019 2:52 PM ) Post BP (sit): 130/56 Post Wt: 106 kg Current Dialysis Vitals (for 12/25/2019 11:31 AM ) BP (sit): 118/50 AP(-) / AGRICULTURAL RESEARCH TECHNICIAN: 258/222 Pulse: 64 Chairside data as of 12/25/2019 11:31 AM Last 3 Treatments 12/23/2019 12/20/2019 12/18/2019 EDW (kg) 105.7 105.7 105.7 Weight Pre (kg) 110.5 109.7 109.9 Weight Post (kg) 106 105.4 106.1 Dialytic Weight Loss (kg) -4.5 -4.3 -3.8 EDW Deviation (kg) 0.3 -0.3 0.4 BP Sit Pre 157/55 148/63 144/61 BP Sit Post 130/56 137/63 143/66 UF Rate (mL/kg/hr) 11 10 9 Prescribed BFR 500 500 500 Average Delivered BFR 500 480 430 Prescribed Treatment Time 04:00 4:0 4:0 Actual Treatment Time 04:03 04:03 04:02 Last 3 Values 12/20/2019 11/22/2019 10/25/2019 Access Flow > 2000 > 2000 1011 WEIR FISHER: Ernie Pompa MD LOCATION: [place] [phone] SCHEDULE: M-W- 2nd Shift EDW: kg. DIALYZER: HD DURATION: NEEDLE SIZE: ANTICOAG: BATH: QB: ml/min QD: ml/min Subjective Tolerating dialysis well. 12/24: Shaun feels excellent and has no [...] He had infiltration last week, dialyzed at [facility] on Sat and went well, access [...] effort Cardiovascular - Regular rate. Regular rhythm. Edema [...] made. Treatment and Adequacy Assessment BUN mg/dL 51 (11/20/19) 54 (10/28/19) 47 (10/23/19) 32 (09/18/19) 40 (08/21/19) UREA NITROGEN (MG/DL) IN SER/PLAS - POST DIALYSIS mg/dL 12 (11/20/19) 13 (10/28/19) 7 (09/18/19) 10 (08/21/19) 9 (07/24/19) URR % 76 (11/20/19) 76 (10/28/19) 78 (09/18/19) 75 (08/21/19) 69 (07/24/19) spKt/V Gotch 1.83 (11/20/19) 1.74 (10/28/19) 1.79 (09/18/19) 1.63 (08/21/19) 1.37 (07/24/19) eKdrt/V 1.59 (11/20/19) 1.51 (10/28/19) 1.56 (09/18/19) 1.42 (08/21/19) 1.2 (07/24/19) spKt/V (Daugirdas II) 1.7400 (11/20/19) 1.7000 (10/28/19) 1.7600 (09/18/19) 1.6000 (08/21/19) 1.3500 (07/24/19) Dialysis is adequate. Achieves prescribed time - Yes Achieves prescribed frequency - Yes Continue current prescription. Vascular Access Assessment Type of access: [id number]/2019 Surgeon Annita KUMARW Access working well Anemia Assessment HEMOGLOBIN (G/DL) IN BLOOD g/dL 11.2 (12/18/19) 11.0 (12/11/19) 11.0 (12/04/19) 10.9 (11/27/19) 11.1 (11/20/19) PLATELETS 1000/mcL 194 (11/20/19) 174 (10/23/19) 200 (09/18/19) 208 (08/21/19) 218 (07/24/19) IRON SATURATION % 42 (11/20/19) 40 (10/23/19) 34 (09/18/19) 24 (08/21/19) 20 (07/24/19) FERRITIN ng/mL 844 (09/18/19) 200 (07/29/19) 134 (06/19/19) 252 (05/29/19) 105 (05/01/19) Hemoglobin is at goal. Iron Saturation is at goal. Ferritin is at goal. Will adjust NATALEE and intravenous iron per protocol. Nutritional and Metabolic Assessment ALBUMIN (G/DL) g/dL 3.8 (11/20/19) 3.8 (10/23/19) 3.8 (09/18/19) 3.2 (08/21/19) 3.2 (07/24/19) Sodium mEq/L 138 (11/20/19) 137 (10/23/19) 136 (09/18/19) 137 (08/21/19) 137 (07/24/19) POTASSIUM (MMOL/L) IN SER/PLAS mEq/L 4.3 (11/20/19) 4.0 (10/23/19) 4.5 (09/18/19) 3.8 (08/21/19) 4.8 (07/24/19) BICARBONATE (CO2) mEq/L 22 (11/20/19) 21 (10/23/19) 23 (09/18/19) 27 (08/21/19) 24 (07/24/19) 25 OH VITAMIN D ng/mL 62.4 (09/18/19) 44.4 (05/01/19) Albumin is below goal. Encourage high-biological value protein intake. Potassium is at goal. Bicarbonate is at goal. Continue same bicarbonate in dialysate. Bone and Mineral Metabolism Assessment Calcium mg/dL 10.0 (12/04/19) 10.2 (11/20/19) 9.9 (11/13/19) 10.2 (10/23/19) 9.7 (10/09/19) CALCIUM (MG/DL) CORRECTED FOR ALBUMIN IN SER/PLAS mg/dL 10.4 (11/20/19) 10.4 (10/23/19) 10.5 (09/18/19) 10.3 (08/21/19) 10.6 (07/24/19) PHOSPHATE (MG/DL) IN SER/PLAS mg/dL 4.8 (11/20/19) 5.7 (10/23/19) 3.7 (09/18/19) 3.5 (08/21/19) 3.5 (07/24/19) CALCIUM PHOSPHORUS PRODUCT, COR 50 (11/20/19) 59 (10/23/19) 39 (09/18/19) 36 (08/21/19) 37 (07/24/19) IPTH pg/mL 167 (09/18/19) 164 (07/24/19) 199 (06/19/19) 351 (05/01/19) Corrected Calcium is at goal. Phosphorous is above goal. Intact PTH is below goal. Operations Expert will adjust binders and vitamin D per protocol and continue to provide dietary education. Stop OTC Ca-D that he was taking, started Renvela, Ca improved Cardiovascular Assessment Blood pressures reviewed and are acceptable. Intradialytic weight gains are appropriate. Estimated dry weight is appropriate. Continue to challenged dry weight as tolerated, fluid restriction discussed previously Transplant Status: Patient is not a candidate. Weight, co-morbidities Resuscitation Status Tolerating dialysis well, no changes to prescription Ernie Pompa MD [ Signed And locked electronically On 12/25/2019 at 11:35:09 AM ] Transcribed: Ernie Pompa ( 12/25/2019 ) documented in this encounter Plan of Treatment Not on filedocumented as of this encounter Visit Diagnoses Not on filedocumented in this encounter
--- OUTSIDE RECORDS SUMMARY | 2021-10-27 05:45 | XMS_ITS | Encounter Summary ---
:1945 Author Organization [facility] Address [address] [place] [address] Pkw[address] [place] [address] Care Team Providers Name Role Phone Unavailable Primary Care Provider Unavailable Encounter Details Date Type Department Care Team Description 02/26/2020 Orders Only [facility] O f Ernie Guzmán MD [phone] [place] [address] [place], [place] [phone] (Wo rk) Social History Tobacco Use Types Packs/Day Years Used Date Smoking Tobacco: Unknown Comments: Smoking History Info:Patient n ot screened Sex Assigned at Date Recorded Not on file documented as of this encounter Plan of Treatment Not on filedocumented as of this encounter Procedures Procedure Name Priority Date/Time Associated Diagnosis Comme nts HEMATOLOGY Routine 02/26/2020 Results for thi s procedure are in the resu lts section. documented in this encounter Results (ABNORMAL) HEMATOLOGY (02/26/2020) Analysis Performed At Patho logist Time Signature Hemoglobin 10.8 (L) 14.0 - [facility] 18.0 g/dL [facility] Hemoglobin x 3 32.4 (L) 42.0 - [facility] 54.0 % [facility] Specimen (Source) Anatomical Collection Method Collection Time Re ceived Time Location / / Volume Laterality 02/26/2020 02/27/2020 2:55 PM LADLE REPAIRMAN Narrative [facility] - 02/27/2020 Unless otherwise specified, test(s) performed at: [facility], [address] [place] [address] TOBACCO DRUMMER: Alec Payan M.D. For any questions, please call customer service at FREQUENCY:OTHER Resulting Agency Comment Specimen source: Blood Ernie Pompa MD LAB BLOOD ORDERABLES Performing Organization Address City/State/ZIP Code Phon e Number [facility]PS [facility] documented in this encounter Visit Diagnoses Not on filedocumented in this encounter
--- OUTSIDE RECORDS SUMMARY | 2021-10-27 05:45 | XMS_ITS | Encounter Summary ---
:1945 Author Organization [facility] Address [address] [place] [address] Care Team Providers Name Role Phone Unavailable Primary Care Provider Unavailable Encounter Details Date Type Department Care Team Description 11/27/2019 Orders Only [facility] O f Ernie Guzmán MD [phone] [place] [address] [place], [place] [phone] (Wo rk) Social History Tobacco Use Types Packs/Day Years Used Date Smoking Tobacco: Unknown Comments: Smoking History Info:Patient n ot screened Sex Assigned at Date Recorded Not on file documented as of this encounter Plan of Treatment Not on filedocumented as of this encounter Procedures Procedure Name Priority Date/Time Associated Diagnosis Comme nts HEMATOLOGY Routine 11/27/2019 Results for thi s procedure are in the resu lts section. documented in this encounter Results (ABNORMAL) HEMATOLOGY (11/27/2019) [facility] gist Method Time Signature Neutrophils 77.3 (H) 40.0 - [facility] 75.0 % [facility] Lymphocytes 10.9 (L) 19.0 - [facility] Relative 48.0 % [facility] Monocytes 7.7 3.0 - 10.0 [facility] % [facility] Eosinophils 1.5 0.0 - 7.0 [facility] Relative % [facility] Basophils 0.4 0.0 - 1.5 [facility] Relative % [facility] YASMIN 2.1 0.0 - 4.0 [facility] % [facility] Hemoglobin 10.9 (L) 14.0 - [facility] 18.0 g/dL [facility] Hemoglobin x 3 32.7 (L) 42.0 - [facility] 54.0 % [facility] Specimen (Source) Anatomical Collection Method Collection Time Re ceived Time Location / / Volume Laterality 11/27/2019 11/28/2019 7:31 PM CDT Narrative [facility] - 11/29/2019 Unless otherwise specified, test(s) performed at: [facility], [address] [place] [address] ACCOUNTANT AUDITOR: Alec Payan M.D. For any questions, please call customer service at FREQUENCY:OTHER Resulting Agency Comment Specimen source: Blood Ernie Pompa MD LAB BLOOD ORDERABLES Performing Organization Address City/State/ZIP Code Phon e Number [facility] documented in this encounter Visit Diagnoses Not on filedocumented in this encounter
--- OUTSIDE RECORDS SUMMARY | 2021-10-27 05:45 | XMS_ITS | Encounter Summary ---
:1945 Author Organization [facility] Address [address] [place] [address] Care Team Providers Name Role Phone Unavailable Primary Care Provider Unavailable Encounter Details Date Type Department Care Team Description 01/01/2020 Orders Only [facility] O f Ernie Gumzán MD [phone] [place] [address] [place], [place] [phone] (Wo rk) Social History Tobacco Use Types Packs/Day Years Used Date Smoking Tobacco: Unknown Comments: Smoking History Info:Patient n ot screened Sex Assigned at Date Recorded Not on file documented as of this encounter Plan of Treatment Not on filedocumented as of this encounter Procedures Procedure Name Priority Date/Time Associated Diagnosis Comme nts HD KINETICS Routine 01/01/2020 Results for thi s procedure are i n the results section . POST CHEMISTRY Routine 01/01/2020 Results for t his procedure are i n the results section . HEMATOLOGY Routine 01/01/2020 Results for thi s procedure are i n the results section . CHEMISTRY Routine 01/01/2020 Results for thi s procedure are i n the results section . SPECTRA [facility] LAB RESULTS Routine 01/01/2020 Resul ts for this procedure are i n the results section . documented in this encounter Results Spectra [facility] Lab Results (01/01/2020) P athologist Signature eNPCR 1.00 [facility] eKt/V 1.55 [facility] ([place]) spKt/V Gotch 1.87 [facility] eKt/V Gotch 1.62 [facility] spKt/V 1.78 [facility] (Daugirdas II) eKdrt/V 1.62 [facility] PCR 74.05 [facility] nPCR_HD 1.06 [facility] Specimen (Source) Anatomical Location Collection Method / Collectio n Time Received Time / Laterality Volume 01/01/2020 01/01/2020 [facility] Ordering Provider LAB BLOOD ORDERABLES Performing Organization Address City/[facility]/ZIP Code Phon e Number [facility] HD KINETICS (01/01/2020) P athologist Signature % Urea 77 65 - 80 % [facility] Reduction [facility] Specimen (Source) Anatomical Collection Method Collection Time Re ceived Time Location / / Volume Laterality 01/01/2020 01/02/2020 6:37 PM CDT Narrative [facility] - 01/02/2020 Unless otherwise specified, test(s) performed at: [email or web address], [address] [place] [address] DRAWING MACHINE OPERATOR: Alec Payan M.D. For any questions, please call customer service at FREQUENCY:OTHER Resulting Agency Comment Specimen source: Serum Ernie Pompa MD LAB BLOOD ORDERABLES Performing Organization Address [facility] Phon e Number [facility]PS [facility]RA [facility] (ABNORMAL) Spectrae Chemistry (01/01/2020) P athologist Signature BUN 53 (H) 6 - 19 [facility] mg/dL [facility] Specimen (Source) Anatomical Collection Method Collection Time Re ceived Time Location / / Volume Laterality 01/01/2020 01/02/2020 6:36 PM CDT Narrative [facility] - 01/02/2020 Unless otherwise specified, test(s) performed at: [email or web address], [address] [place], [place] [id number] DRAWING MACHINE OPERATOR: Alec Payan M.D. For any questions, please call customer service at FREQUENCY:OTHER Resulting Agency Comment Specimen source: Serum Ernie Pompa MD LAB BLOOD ORDERABLES Performing Organization Address City/[facility] Phon e Number [facility] (ABNORMAL) HEMATOLOGY (01/01/2020) Analysis Performed At Patho logist Time Signature Hemoglobin 11.6 (L) 14.0 - [facility] 18.0 g/dL [facility] Hemoglobin x 3 34.8 (L) 42.0 - [facility] 54.0 % [facility] Specimen (Source) Anatomical Collection Method Collection Time Re ceived Time Location / / Volume Laterality 01/01/2020 01/02/2020 4:27 PM CDT Narrative [facility] - 01/02/2020 Unless otherwise specified, test(s) performed at: [email or web address], [address] [place] [address] DRAWING MACHINE OPERATOR: Alec Payan M.D. For any questions, please call customer service at FREQUENCY:OTHER Resulting Agency Comment Specimen source: Blood Ernie Pompa MD LAB BLOOD ORDERABLES Performing Organization Address City/State/[facility] Code Phon e Number [facility] POST CHEMISTRY (01/01/2020) P athologist Signature BUN Post 12 6 - 19 APS [facility]RA Dialysis mg/dL [facility] Specimen (Source) Anatomical Collection Method Collection Time Re ceived Time Location / / Volume Laterality 01/01/2020 01/02/2020 2:30 PM CDT Narrative [facility]PS [facility] - 01/02/2020 Unless otherwise specified, test(s) performed at: [email or web address], [address] [place] [address] DRAWING MACHINE OPERATOR: Alec Payan M.D. For any questions, please call customer service at FREQUENCY:OTHER Resulting Agency Comment Specimen source: Plasma Ernie Pompa MD LAB BLOOD ORDERABLES Performing Organization Address City/State/[facility] Code Phon e Number [facility] documented in this encounter Visit Diagnoses Not on filedocumented in this encounter
--- OUTSIDE RECORDS SUMMARY | 2021-10-27 05:45 | XMS_ITS | Encounter Summary ---
:1945 Author Organization [facility] Address [address] [place] [address] Care Team Providers Name Role Phone Unavailable Primary Care Provider Unavailable Encounter Details Date Type Department Care Team Description 01/15/2020 Orders Only [facility] O f Ernie Guzmán MD [address] [place] [address] [place], [place] [phone] (Wo rk) Social History Tobacco Use Types Packs/Day Years Used Date Smoking Tobacco: Unknown Comments: Smoking History Info:Patient n ot screened Sex Assigned at Date Recorded Not on file documented as of this encounter Plan of Treatment Not on filedocumented as of this encounter Procedures Procedure Name Priority Date/Time Associated Diagnosis Comme nts HEMATOLOGY Routine 01/15/2020 Results for thi s procedure are in the resu lts section. documented in this encounter Results (ABNORMAL) HEMATOLOGY (01/15/2020) Analysis Performed At Patho logist Time Signature Hemoglobin 11.0 (L) 14.0 - [facility] 18.0 g/dL [facility] Hemoglobin x 3 33.0 (L) 42.0 - [facility] 54.0 % [facility] Specimen (Source) Anatomical Collection Method Collection Time Re ceived Time Location / / Volume Laterality 01/15/2020 01/16/2020 11:3 7 AM CDT Narrative [facility]PS [facility] - 01/16/2020 Unless otherwise specified, test(s) performed at: [facility], [address] [place] [address] NEUROLOGY EPILEPSY PHYSICIAN: Alec Payan M.D. For any questions, please call customer service at FREQUENCY:OTHER Resulting Agency Comment Specimen source: Blood Ernie Pompa MD LAB BLOOD ORDERABLES Performing Organization Address City/State/ZIP Code Phon e Number [facility] documented in this encounter Visit Diagnoses Not on filedocumented in this encounter
--- OUTSIDE RECORDS SUMMARY | 2021-10-27 05:45 | XMS_ITS | Encounter Summary ---
:1945 Author Organization [facility] Address [address] [place] [address] Care Team Providers Name Role Phone Unavailable Primary Care Provider Unavailable Encounter Details Date Type Department Care Team Description 03/04/2020 Treatment [facility] O Ernie Gómez MD [address] [place] [address] [place], [place] [phone] [phone] (Wo rk) Social History Tobacco Use Types Packs/Day Years Used Date Smoking Tobacco: Unknown Comments: Smoking History Info:Patient n ot screened Sex Assigned at Date Recorded Not on file documented as of this encounter Miscellaneous Notes Dialysis Note - rEnie Pompa MD - 03/04/2020 9:33 AM CST Date: Mar 04, 2020 Patient Name: Shaun Ocampo : 1945 Chart #: [id number] Sex: M This patient was personally seen for a basic visit as part of routine weekly dialysis care. A reviewof the dialysis treatment, blood pressure, estimated dry weight and recent lab values was made. These were discussed with the patient and staff as necessary. Treatment Data for 03/04/2020 started at:7:45 AM Dialyzer: 180NRe Optiflux Na: 138 mEq/L Bicarb: 28 mEq/L Dialysate: 2.0 K, 2.25 Ca, 1.0 Mg, 100 Dextrose (G2231) Dialysate/Machine Temp (prescribed): 37 C Dialysate/Machine Temp (actual): 37 C BFR (prescribed): 500 BFR (actual): 500 Prescribed time: 04:00 EDW: 105.7 kg Access Type: Active (In Use):AVFistula-Standard/Left Upper Arm Pre Dialysis Vitals (for 03/04/2020 7:37 AM ) Pre BP (sit): 157/65 Pre Wt: 110.7 kg Temp: 97.7 F Post Dialysis Vitals (for 03/02/2020 1:25 PM ) Post BP (sit): 124/54 Post Wt: 107.5 kg Current Dialysis Vitals (for 03/04/2020 8:36 AM ) BP (sit): 95/48 AP(-) / AIR BRAKE OPERATOR: 248/204 Pulse: 71 Chairside data as of 03/04/2020 8:36 AM Last 3 Treatments 03/02/2020 02/28/2020 02/26/2020 EDW (kg) 105.7 105.7 105.7 Weight Pre (kg) 110.7 111.1 111.4 Weight Post (kg) 107.5 106.2 106.8 Dialytic Weight Loss (kg) -3.2 -4.9 -4.6 EDW Deviation (kg) 1.8 0.5 1.1 BP Sit Pre 151/67 157/67 160/59 BP Sit Post 124/54 132/63 103/52 UF Rate (mL/kg/hr) 8 11 11 Prescribed BFR 500 500 500 Average Delivered BFR 510 510 510 Prescribed Treatment Time 04:00 04:00 04:00 Actual Treatment Time 04:00 04:02 04:02 Last 3 Values 02/21/2020 01/24/2020 12/20/2019 Access [...] Every 4 weeks During Dialysis 02/12/2020 02/10/2021 HOME WEATHERIZING WORKER: Ernie Pompa MD LOCATION: [facility] [phone] SCHEDULE: M-W- 2nd Shift ACCESS: EDW: kg. DIALYZER: HD DURATION: NEEDLE SIZE: ANTICOAG: BATH: QB: ml/min QD: ml/min Subjective Tolerating dialysis well. Good appetite. Reports no trouble with access. 03/04: He feels well, no complaints. Still [...] He had infiltration last week, dialyzed at [facility] on Sat and went well, access [...] and no changes were made. BUN mg/dL 57 (02/19/20) 70 (01/22/20) 53 [...] (01/22/20) 1.7800 (01/01/20) 1.7400 (11/20/19) 1.7000 (10/28/19) HEMOGLOBIN (G/DL) IN BLOOD g/dL 10.8 (02/26/20) 11.6 (02/19/20) 11.2 (02/12/20) 11.0 (02/05/20) 11.1 (01/29/20) PLATELETS 1000/mcL 190 (02/19/20) 158 (01/22/20) 157 (12/25/19) 194 (11/20/19) 174 (10/23/19) IRON SATURATION % 40 (02/19/20) 48 (01/22/20) 45 (12/25/19) 42 (11/20/19) 40 (10/23/19) FERRITIN ng/mL 912 (01/29/20) 732 (12/25/19) 844 (09/18/19) 200 (07/29/19) 134 (06/19/19) ALBUMIN (G/DL) g/dL 4.0 (02/19/20) 3.6 (01/22/20) 3.8 (12/25/19) Sodium mEq/L 139 (02/19/20) 135 (01/22/20) 137 (12/25/19) POTASSIUM (MMOL/L) IN SER/PLAS mEq/L 5.1 (02/19/20) 4.4 (01/22/20) 4.8 (12/25/19) BICARBONATE (CO2) mEq/L 19 (02/19/20) 21 (01/22/20) 22 (12/25/19) 25 OH VITAMIN D ng/mL 62.4 (09/18/19) 44.4 (05/01/19) BUN/CREATININE (MASS RATIO) IN SER/PLAS 9.3 (02/19/20) 12.9 (01/22/20) 9.3 (12/25/19) Calcium mg/dL 10.0 (02/19/20) 9.7 (01/22/20) 10.0 (12/25/19) Calcium Phos Product 58 (02/19/20) 62 (01/22/20) 61 (12/25/19) CALCIUM (MG/DL) CORRECTED FOR ALBUMIN IN SER/PLAS mg/dL 10.0 (02/19/20) 10.0 (01/22/20) 10.2 (12/25/19) PHOSPHATE (MG/DL) IN SER/PLAS mg/dL 5.8 (02/19/20) 6.4 (01/22/20) 6.1 (12/25/19) IPTH pg/mL 506 (12/25/19) 167 (09/18/19) 164 (07/24/19) Vascular Access Assessment: Type of access: [id number] Surgeon - Lary GARDNER Access working well Impression and Plan No changes, stable dialysis Tolerating binder, continue and trend as phos improving Discussed lowering IDWG's again, he knows what he needs to do and says he will keep working on this Ernie Pompa MD [ Signed And locked electronically On 03/04/2020 at 09:34:31 AM ] Transcribed: Ernie Pompa ( 03/04/2020 ) documented in this encounter Plan of Treatment Not on filedocumented as of this encounter Visit Diagnoses Not on filedocumented in this encounter
--- OUTSIDE RECORDS SUMMARY | 2021-10-27 05:45 | XMS_ITS | Encounter Summary ---
:1945 Author Organization [facility] Address [address] [place] [address] Care Team Providers Name Role Phone Unavailable Primary Care Provider Unavailable Encounter Details Date Type Department Care Team Description 03/09/2020 [facility] Only [facility] O f Ernie Guzmán MD [phone] [place] [address] [place], [place] [phone] (Wo rk) Social History Tobacco Use Types Packs/Day Years Used Date Smoking Tobacco: Unknown Comments: Smoking History Info:Patient n ot screened Sex Assigned at Date Recorded Not on file documented as of this encounter Plan of Treatment Not on filedocumented as of this encounter Procedures Procedure Name Priority Date/Time Associated Diagnosis Comme nts IMMUNO CHEMISTRY Routine 03/09/2020 Results for this procedure are in the resu lts section. HEMATOLOGY Routine 03/09/2020 Results for thi s procedure are in the resu lts section. documented in this encounter Results IMMUNO CHEMISTRY (03/09/2020) athologist Signature Hepatitis B <10 mIU/mL [facility]PS [employer] Surface Ab [facility] Comment: Reference Range: <10 mIU/mL ? Non-Immune >=10 mIU/mL ?Immune The magnitude of the measured result abo ve 10 mIU/mL is not indicative of the total amount of antibody present. Custom Exception Specimen (Source) Anatomical Collection Method Collection Time Re ceived Time Location / / Volume Laterality 03/09/2020 03/10/2020 2:47 PM GOLF RANGE ATTENDANT Narrative [facility]PS [facility] - 03/10/2020 Unless otherwise specified, test(s) performed at: [facility], [address] [place] [address] LEATHER STRETCHER: Alec Payan M.D. For any questions, please call customer service at FREQUENCY:OTHER Resulting Agency Comment Specimen source: Serum Ernie Pompa MD LAB BLOOD ORDERABLES Performing Organization Address City/[facility]/ZIP Code Phon e Number [facility] (ABNORMAL) HEMATOLOGY (03/09/2020) Analysis Performed At Patho logist Time Signature Hemoglobin 10.6 (L) 14.0 - [facility]PS [facility] 18.0 g/dL [facility] Hemoglobin x 3 31.8 (L) 42.0 - [facility]PS [facility] 54.0 % [facility] Specimen (Source) Anatomical Collection Method Collection Time Re ceived Time Location / / Volume Laterality 03/09/2020 03/10/2020 12:1 4 PM GOLF RANGE ATTENDANT Narrative [facility] - 03/10/2020 Unless otherwise specified, test(s) performed at: [facility], [address] [place] [address] LEATHER STRETCHER: Alec Payan M.D. For any questions, please call customer service at FREQUENCY:OTHER Resulting Agency Comment Specimen source: Blood Ernie Pompa MD LAB BLOOD ORDERABLES Performing Organization Address City/State/ZIP Code Phon e Number [facility]PS [facility] documented in this encounter Visit Diagnoses Not on filedocumented in this encounter
--- OUTSIDE RECORDS SUMMARY | 2021-10-27 05:45 | XMS_ITS | Encounter Summary ---
:1945 Author Organization [facility] Address [address] [place] [address] Care Team Providers Name Role Phone Unavailable Primary Care Provider Unavailable Encounter Details Date Type Department Care Team Description 03/16/2020 [facility] Only [facility] O f Ernie Guzmán MD [phone] [place] [address] [place], [place] [phone] (Wo rk) Social History Tobacco Use Types Packs/Day Years Used Date Smoking Tobacco: Unknown Comments: Smoking History Info:Patient n ot screened Sex Assigned at Date Recorded Not on file documented as of this encounter Plan of Treatment Not on filedocumented as of this encounter Procedures Procedure Name Priority Date/Time Associated Diagnosis Comme nts HEMATOLOGY Routine 03/16/2020 Results for thi s procedure are in the resu lts section. documented in this encounter Results (ABNORMAL) HEMATOLOGY (03/16/2020) Analysis Performed At Patho logist Time Signature Hemoglobin 10.7 (L) 14.0 - [facility]PS [facility]RA 18.0 g/dL [facility] Hemoglobin x 3 32.1 (L) 42.0 - [facility]PS [facility] 54.0 % [facility] Specimen (Source) Anatomical Collection Method Collection Time Re ceived Time Location / / Volume Laterality 03/16/2020 03/17/2020 12:0 2 PM RETAIL PROPERTY MANAGER Narrative [facility] - 03/17/2020 Unless otherwise specified, test(s) performed at: [facility], [address] [place] [address] ADVERTISING COPYWRITER: Alec Payan M.D. For any questions, please call customer service at FREQUENCY:OTHER Resulting Agency Comment Specimen source: Blood Ernie Pompa MD LAB BLOOD ORDERABLES Performing Organization Address City/State/ZIP Code Phon e Number [facility] documented in this encounter Visit Diagnoses Not on filedocumented in this encounter
--- OUTSIDE RECORDS SUMMARY | 2021-10-27 05:45 | XMS_ITS | Encounter Summary ---
:1945 Author Organization [facility] Address [address] [place] [address] Care Team Providers Name Role Phone Unavailable Primary Care Provider Unavailable Encounter Details Date Type Department Care Team Description 03/25/2020 Orders Only [facility] O f Ernie Guzmán MD [phone] [place] [address] [place], [place] [phone] (Wo rk) Social History Tobacco Use Types Packs/Day Years Used Date Smoking Tobacco: Unknown Comments: Smoking History Info:Patient n ot screened Sex Assigned at Date Recorded Not on file documented as of this encounter Plan of Treatment Not on filedocumented as of this encounter Procedures Procedure Name Priority Date/Time Associated Diagnosis Comme nts HD KINETICS Routine 03/25/2020 Results for thi s procedure are i n the results section . SPECIAL CHEMISTRY Routine 03/25/2020 Results fo r this procedure are i n the results section . POST CHEMISTRY Routine 03/25/2020 Results for t his procedure are i n the results section . IMMUNO CHEMISTRY Routine 03/25/2020 Results for this procedure are i n the results section . TRACE ELEMENTS Routine 03/25/2020 Results for t his procedure are i n the results section . HEMATOLOGY Routine 03/25/2020 Results for thi s procedure are i n the results section . CHEMISTRY Routine 03/25/2020 Results for thi s procedure are i n the results section . CHEMISTRY Routine 03/25/2020 Results for thi s procedure are i n the results section . SPECTRA [facility] LAB RESULTS Routine 03/25/2020 Resul ts for this procedure are i n the results section . documented in this encounter Results SPECIAL CHEMISTRY (03/25/2020) P athologist Signature Vitamin D, 37.9 30.0 - [facility]PS [facility] 25-OH, Total 100.0 [facility] ng/mL Comment: Vitamin D Status Classification: Deficiency ? <10.0 ng/mL Insufficiency ?10.0-30.0 ng/mL Sufficiency ?30.0-100.0 ng/mL Toxicity ? >100.0 ng/mL Specimen (Source) Anatomical Collection Method Collection Time Re ceived Time Location / / Volume Laterality 03/25/2020 03/27/2020 11:1 6 AM PAPER CUTTER OPERATOR Narrative [facility] - 03/30/2020 Unless otherwise specified, test(s) performed at: [facility], [address] [place] [address] MERCERIZING RANGE CONTROLLER: Alec Payan M.D. For any questions, please call customer service at FREQUENCY:MONTHLY Resulting Agency Comment Specimen source: Serum Ernie Pompa MD LAB BLOOD BANK TEST ORDERABL ES Performing Organization Address City/State/ZIP Code Phon e Number [facility]PS [facility]RA [facility] Spectra [facility] Lab Results (03/25/2020) P athologist Signature PCR 80.35 [facility] eNPCR 1.13 [facility] eKt/V Gotch 1.76 [facility] spKt/V Gotch 2.03 [facility] eKt/V 1.67 [facility] ([place]) spKt/V 1.91 [facility] ([place] II) eKdrt/V 1.76 [facility] nPCR_HD 1.20 [facility] Specimen (Source) Anatomical Location Collection Method / Collectio n Time Received Time / Laterality Volume 03/25/2020 03/25/2020 [facility] Ordering Provider LAB BLOOD ORDERABLES Performing Organization Address City/State/ZIP Code Phon e Number [facility] TRACE ELEMENTS (03/25/2020) P athologist Signature Aluminum <5 0 - 10 [facility]PS [facility] mcg/L [facility] Comment: This test was developed and its performa nce characteristics determined by [facility]. It has not been cleared or approved by the FDA. The laboratory is regulated under CLIA a s qualified to perform high complexity testing. This test is used fo r clinical purposes. It should not be regarded as investigational or fo r research. Specimen (Source) Anatomical Collection Method Collection Time Re ceived Time Location / / Volume Laterality 03/25/2020 03/26/2020 6:29 PM PAPER CUTTER OPERATOR Narrative [facility] - 03/28/2020 Unless otherwise specified, test(s) performed at: [facility], [address] [place], [place] [id number] MERCERIZING RANGE CONTROLLER: Alec Payan M.D. For any questions, please call customer service at FREQUENCY:MONTHLY Resulting Agency Comment Specimen source: Serum Ernie Pompa MD LAB BLOOD ORDERABLES Performing Organization Address City/[facility] [address]/ZIP Code Phon e Number [facility]PS [facility] IMMUNO CHEMISTRY (03/25/2020) P athologist Signature Hep B Surface Negative Negative APS SPECTRA Ag [facility] Specimen (Source) Anatomical Collection Method Collection Time Re ceived Time Location / / Volume Laterality 03/25/2020 03/27/2020 11:1 6 AM PAPER CUTTER OPERATOR Resulting Agency Comment Specimen source: Serum Ernie Leimario CAMPBELL LAB BLOOD ORDERABLES Performing Organization Address City/[facility] [address]/ZIP Code Phon e Number [facility] HD KINETICS (03/25/2020) P athologist Signature % Urea 79 65 - 80 % [facility]PS [facility] Reduction [facility] Specimen (Source) Anatomical Collection Method Collection Time Re ceived Time Location / / Volume Laterality 03/25/2020 03/27/2020 11:1 7 AM PAPER CUTTER OPERATOR Resulting Agency Comment Specimen source: Serum Ernie Leimario CAMPBELL LAB BLOOD ORDERABLES Performing Organization Address City/[facility] [address]/ZIP Code Phon e Number [facility]PS [facility] POST CHEMISTRY (03/25/2020) P athologist Signature BUN Post 12 6 - 19 APS [facility]PECTRA Dialysis mg/dL [facility] Specimen (Source) Anatomical Collection Method Collection Time Re ceived Time Location / / Volume Laterality 03/25/2020 03/27/2020 10:5 5 AM PAPER CUTTER OPERATOR Narrative [facility] - 03/27/2020 Unless otherwise specified, test(s) performed at: [facility], [address] [place] [address] MERCERIZING RANGE CONTROLLER: Alec Payan M.D. For any questions, please call customer service at FREQUENCY:MONTHLY Resulting Agency Comment Specimen source: Plasma Ernie Pompa MD LAB BLOOD ORDERABLES Performing Organization Address City/State/ZIP Code Phon e Number [facility]PS [facility]RA [facility] (ABNORMAL) Spectrae Chemistry (03/25/2020) [facility] Method Time Signature BUN 58 (H) 6 - 19 [facility]PS [facility]RA mg/dL [facility] Creatinine 5.68 (H) 0.60 - APS SPECTRA 1.30 mg/dL [facility] BUN/Creatinine 10.2 10.0 - APS [facility]RA Ratio 20.0 [facility] [...] - 54 [facility] Alkaline Phosphatase 117 40 - 129 U/L APS SP ECTRA [facility] Total Protein 6.3 6.0 - 8.5 g/dL [facility]PS [facility] Albumin 3.9 3.5 - 5.2 g/dL [facility] Globulin, Total 2.4 2.0 - 4.0 g/dL APS SPECT RA [facility] A/G Ratio 1.6 1.0 - 2.0 [facility] Magnesium 2.1 1.6 - 2.6 mg/dL [facility]PS [facility] Iron 83 45 - 160 mcg/dL [facility] UIBC 185 155 - 355 mcg/dL APS SPECTRA [facility] TIBC 268 185 - 515 mcg/dL APS SPECTRA [facility] Iron Saturation (TSat) 31 20 - 55 % APS SPE CTRA [facility] Ferritin 1,040 (H) 22 - 322 ng/mL [facility] Specimen (Source) Anatomical Collection Method Collection Time Re ceived Time Location / / Volume Laterality 03/25/2020 03/27/2020 11:1 6 AM PAPER CUTTER OPERATOR Narrative APS [facility]RA [facility] - 03/28/2020 Unless otherwise specified, test(s) performed at: [facility], [address] [place] [address] MERCERIZING RANGE CONTROLLER: Alec Payan M.D. For any questions, please call customer service at FREQUENCY:MONTHLY Resulting Agency Comment Specimen source: Serum Ernie Pompa MD LAB BLOOD ORDERABLES Performing Organization Address City/[facility] [address]/[facility] Phon e Number APS SPECTRA [facility] (ABNORMAL) Spectrae Chemistry (03/25/2020) P athologist Signature PTH 828 (H) 16 - 80 APS [facility]RA pg/mL [facility] Specimen (Source) Anatomical Collection Method Collection Time Re ceived Time Location / / Volume Laterality 03/25/2020 03/26/2020 5:05 PM PAPER CUTTER OPERATOR Narrative [facility]PS [facility]RA [facility] - 03/27/2020 Unless otherwise specified, test(s) performed at: [facility], [address] [place] [address] MERCERIZING RANGE CONTROLLER: Alec Payan M.D. For any questions, please call customer service at FREQUENCY:MONTHLY Resulting Agency Comment Specimen source: Plasma Ernie Pompa MD LAB BLOOD ORDERABLES Performing Organization Address City/[facility] [address]/[facility] Phon e Number APS SPECTRA [facility] (ABNORMAL) HEMATOLOGY (03/25/2020) Analysis Performed At Patho logist Time Signature WBC 6.53 4.80 - APS [facility]RA 10.80 [facility] 1000/mcL RBC 3.08 (L) 4.70 - APS SPECTRA 6.10 [facility] mill/mcL Hemoglobin 10.4 (L) 14.0 - APS SPECTRA 18.0 g/dL [facility] Hemoglobin x 3 31.2 (L) 42.0 - APS [facility]PECTRA 54.0 % [facility] Hematocrit 31.1 (L) 42.0 - APS SPECTRA 52.0 % [facility] MCV 101 (H) 80 - 100 APS [facility]RA fl [facility] MCH 33.9 (H) 27.0 - APS [facility]RA 31.0 pg [facility] MCHC 33.5 30.0 - APS [facility]RA 36.0 g/dL [facility] RDW 14.1 11.5 - APS [facility]RA 14.5 % [facility] Platelets 169 130 - 400 APS [facility]PECTRA 1000/mcL [facility] Specimen (Source) Anatomical Collection Method Collection Time Re ceived Time Location / / Volume Laterality 03/25/2020 03/26/2020 5:05 PM PAPER CUTTER OPERATOR Narrative [facility]PS [facility]RA [facility] - 03/26/2020 Unless otherwise specified, test(s) performed at: [facility], [address] [place] [address] MERCERIZING RANGE CONTROLLER: Alec Payan M.D. For any questions, please call customer service at FREQUENCY:MONTHLY Resulting Agency Comment Specimen source: Blood Ernie Pompa MD LAB BLOOD ORDERABLES Performing Organization Address City/State/ZIP Code Phon e Number [facility] documented in this encounter Visit Diagnoses Not on filedocumented in this encounter
--- OUTSIDE RECORDS SUMMARY | 2021-10-27 05:45 | XMS_ITS | Encounter Summary ---
:1945 Author Organization [facility] Address [address] [place] [address] Care Team Providers Name Role Phone Unavailable Primary Care Provider Unavailable Encounter Details Date Type Department Care Team Description 10/28/2019 Orders Only [facility] O f Ernie Guzmán MD [phone] [place] [address] [place], [place] [phone] (Wo rk) Social History Tobacco Use Types Packs/Day Years Used Date Smoking Tobacco: Unknown Comments: Smoking History Info:Patient n ot screened Sex Assigned at Date Recorded Not on file documented as of this encounter Plan of Treatment Not on filedocumented as of this encounter Procedures Procedure Name Priority Date/Time Associated Diagnosis Comme nts HD KINETICS Routine 10/28/2019 Results for thi s procedure are i n the results section . POST CHEMISTRY Routine 10/28/2019 Results for t his procedure are i n the results section . CHEMISTRY Routine 10/28/2019 Results for thi s procedure are i n the results section . SPECTRA [facility] LAB RESULTS Routine 10/28/2019 Resul ts for this procedure are i n the results section . documented in this encounter Results Spectra [facility] Lab Results (10/28/2019) P athologist Signature eNPCR 0.81 [facility] spKt/V Gotch 1.74 [facility] PCR 68.68 [facility] eKt/V Gotch 1.51 [facility] eKt/V 1.48 [facility] ([place]) eKdrt/V 1.51 [facility] spKt/V 1.70 [facility] (Daugirdas II) nPCR_HD 0.84 [facility] Specimen (Source) Anatomical Location Collection Method / Collectio n Time Received Time / Laterality Volume 10/28/2019 10/28/2019 [facility] Ordering Provider LAB BLOOD ORDERABLES Performing Organization Address City/State/ZIP Code Phon e Number [facility] HD KINETICS (10/28/2019) P athologist Signature % Urea 76 65 - 80 % [facility]PS [facility] Reduction [facility] Specimen (Source) Anatomical Collection Method Collection Time Re ceived Time Location / / Volume Laterality 10/28/2019 10/31/2019 3:15 PM CDT Resulting Agency Comment Specimen source: Plasma Ernie Pompa MD LAB BLOOD ORDERABLES Performing Organization Address City/[facility] Phon e Number APS SPECTRA [facility] POST CHEMISTRY (10/28/2019) P athologist Signature BUN Post 13 6 - 19 APS SPECTRA Dialysis mg/dL [facility] Specimen (Source) Anatomical Collection Method Collection Time Re ceived Time Location / / Volume Laterality 10/28/2019 10/31/2019 3:11 PM CDT Narrative APS S[facility]RA [facility] - 10/31/2019 Unless otherwise specified, test(s) performed at: [facility], [address] [place] [address] HEAD START DIRECTOR: Alec Payan M.D. For any questions, please call customer service at FREQUENCY:OTHER Resulting Agency Comment Specimen source: Plasma Ernie Pompa MD LAB BLOOD ORDERABLES Performing Organization Address [facility] Phon e Number [facility]PS S[facility]RA [facility] (ABNORMAL) Spectrae Chemistry (10/28/2019) P athologist Signature BUN 54 (H) 6 - 19 APS [facility]RA mg/dL [facility] Specimen (Source) Anatomical Collection Method Collection Time Re ceived Time Location / / Volume Laterality 10/28/2019 10/29/2019 4:43 PM CDT Narrative [facility]PS [facility]RA [facility] - 10/29/2019 Unless otherwise specified, test(s) performed at: [facility], [address] [place] [address] HEAD START DIRECTOR: Alec Payan M.D. For any questions, please call customer service at FREQUENCY:OTHER Resulting Agency Comment Specimen source: Serum Ernie Pompa MD LAB BLOOD ORDERABLES Performing Organization Address [facility] Phon e Number [facility]PS [facility]RA [facility] documented in this encounter Visit Diagnoses Not on filedocumented in this encounter
--- OUTSIDE RECORDS SUMMARY | 2021-10-27 05:45 | XMS_ITS | Encounter Summary ---
:1945 Author Organization [facility] Address [address] [place] [address] Care Team Providers Name Role Phone Unavailable Primary Care Provider Unavailable Encounter Details Date Type Department Care Team Description 01/08/2020 Orders Only [facility] O f Ernie Guzmán MD [phone] [place] [address] [place], [place] [phone] (Wo rk) Social History Tobacco Use Types Packs/Day Years Used Date Smoking Tobacco: Unknown Comments: Smoking History Info:Patient n ot screened Sex Assigned at Date Recorded Not on file documented as of this encounter Plan of Treatment Not on filedocumented as of this encounter Procedures Procedure Name Priority Date/Time Associated Diagnosis Comme nts HEMATOLOGY Routine 01/08/2020 Results for thi s procedure are in the resu lts section. documented in this encounter Results (ABNORMAL) HEMATOLOGY (01/08/2020) Analysis Performed At Patho logist Time Signature Hemoglobin 11.4 (L) 14.0 - APS SPECTRA 18.0 g/dL [facility] Hemoglobin x 3 34.2 (L) 42.0 - APS SPECTRA 54.0 % [facility] Specimen (Source) Anatomical Collection Method Collection Time Re ceived Time Location / / Volume Laterality 01/08/2020 01/09/2020 5:14 PM CDT Narrative APS SPECTRA [facility] - 01/09/2020 Unless otherwise specified, test(s) performed at: [facility], [address] [place] [address] PATTERN HANGER: Alec Payan M.D. For any questions, please call customer service at FREQUENCY:OTHER Resulting Agency Comment Specimen source: Blood Ernie Pompa MD LAB BLOOD ORDERABLES Performing Organization Address City/State/ZIP Code Phon e Number [facility]PS [facility]RA [facility] documented in this encounter Visit Diagnoses Not on filedocumented in this encounter
--- OUTSIDE RECORDS SUMMARY | 2021-10-27 05:45 | XMS_ITS | Encounter Summary ---
:1945 Author Organization [facility] Address [address] [place] [address] Care Team Providers Name Role Phone Unavailable Primary Care Provider Unavailable Encounter Details Date Type Department Care Team Description 01/08/2020 Treatment [facility] Ernie Gómez MD [address] [place] [address] [place], [place] [phone] (Wo rk) Social History Tobacco Use Types Packs/Day Years Used Date Smoking Tobacco: Unknown Comments: Smoking History Info:Patient n ot screened Sex Assigned at Date Recorded Not on file documented as of this encounter Miscellaneous Notes Dialysis Note - Ernie Pompa MD - 01/08/2020 12:11 PM CDT Date: Jan 08, 2020 Patient Name: Shaun Ocampo : 1945 Chart #: [id number] Sex: M This patient was personally seen for a basic visit as part of routine weekly dialysis care. A reviewof the dialysis treatment, blood pressure, estimated dry weight and recent lab values was made. These were discussed with the patient and staff as necessary. Treatment Data for 01/08/2020 started at:10:54 AM Dialyzer: 180NRe Optiflux Na: 138 mEq/L Bicarb: 26 mEq/L Dialysate: 2.0 K, 2.25 Ca, 1.0 Mg, 100 Dextrose (G2231) Dialysate/Machine Temp (prescribed): 37 C Dialysate/Machine Temp (actual): 37 C BFR (prescribed): 500 BFR (actual): 500 Prescribed time: 04:00 EDW: 105.7 kg Access Type: Active (In Use):AVFistula-Standard/Left Upper Arm Pre Dialysis Vitals (for 01/08/2020 10:38 AM ) Pre BP (sit): 152/82 Pre Wt: 109.2 kg Temp: 97.5 F Post Dialysis Vitals (for 01/06/2020 2:49 PM ) Post BP (sit): 142/67 Post Wt: 105.6 kg Current Dialysis Vitals (for 01/08/2020 12:03 PM ) BP (sit): 118/58 AP(-) / LINK CUTTER: 261/204 Pulse: 66 Chairside data as of 01/08/2020 12:03 PM Last 3 Treatments 01/06/2020 01/03/2020 01/01/2020 EDW (kg) 105.7 105.7 105.7 Weight Pre (kg) 110 109 110 Weight Post (kg) 105.6 105.1 105.5 Dialytic Weight Loss (kg) -4.4 -3.9 -4.5 EDW Deviation (kg) -0.1 -0.6 -0.2 BP Sit Pre 169/80 157/66 132/76 BP Sit Post 142/67 134/59 124/67 UF Rate (mL/kg/hr) 10 9 11 Prescribed BFR 500 500 500 Average Delivered BFR 500 510 500 Prescribed Treatment Time 04:00 04:00 04:00 Actual Treatment Time 04:01 04:00 04:00 Last 3 Values 12/20/2019 11/22/2019 10/25/2019 Access Flow > 2000 > 2000 1011 Treatment Medication Orders Medication Sig Start Date End Date Heparin Sodium (Porcine) 1,000 Units/mL Systemic 2000 units IVP Every Treatment 05/01/2019 04/29/2020 Heparin Sodium (Porcine) 1,000 Units/mL Systemic 1000 units IVP Every Treatment 05/01/2019 04/29/2020 Iron Sucrose (Venofer) 50 mg IVP 1X Week During Dialysis 10/28/2019 10/19/2020 BULK PALLET BUILDER: Ernie Pompa MD LOCATION: [phone] SCHEDULE: -W- 2nd Shift ACCESS: EDW: kg. DIALYZER: HD DURATION: NEEDLE SIZE: ANTICOAG: BATH: QB: ml/min QD: ml/min Subjective Tolerating dialysis well. 01/07: NO complaints today, feels well, dialysis [...] murmur heard. Edema - Trace edema. to 1+ Access - AVF intact with needles in [...] and no changes were made. BUN mg/dL 53 (01/01/20) 48 (12/25/19) 51 (11/20/19) 54 (10/28/19) 47 (10/23/19) UREA NITROGEN (MG/DL) IN SER/PLAS - POST DIALYSIS mg/dL 12 (01/01/20) <^2 (12/25/19) 12 (11/20/19) 13 (10/28/19) 7 (09/18/19) URR % 77 (01/01/20) 76 (11/20/19) 76 (10/28/19) 78 (09/18/19) 75 (08/21/19) spKt/V Gotch 1.87 (01/01/20) 1.83 (11/20/19) 1.74 (10/28/19) 1.79 (09/18/19) 1.63 (08/21/19) eKdrt/V 1.62 (01/01/20) 1.59 (11/20/19) 1.51 (10/28/19) 1.56 (09/18/19) 1.42 (08/21/19) spKt/V (Daugirdas II) 1.7800 (01/01/20) 1.7400 (11/20/19) 1.7000 (10/28/19) 1.7600 (09/18/19) 1.6000 (08/21/19) HEMOGLOBIN (G/DL) IN BLOOD g/dL 11.6 (01/01/20) 11.3 (12/25/19) 11.2 (12/18/19) 11.0 (12/11/19) 11.0 (12/04/19) PLATELETS 1000/mcL 157 (12/25/19) 194 (11/20/19) 174 (10/23/19) 200 (09/18/19) 208 (08/21/19) IRON SATURATION % 45 (12/25/19) 42 (11/20/19) 40 (10/23/19) 34 (09/18/19) 24 (08/21/19) FERRITIN ng/mL 732 (12/25/19) 844 (09/18/19) 200 (07/29/19) 134 (06/19/19) 252 (05/29/19) ALBUMIN (G/DL) g/dL 3.8 (12/25/19) 3.8 (11/20/19) 3.8 (10/23/19) Sodium mEq/L 137 (12/25/19) 138 (11/20/19) 137 (10/23/19) POTASSIUM (MMOL/L) IN SER/PLAS mEq/L 4.8 (12/25/19) 4.3 (11/20/19) 4.0 (10/23/19) BICARBONATE (CO2) mEq/L 22 (12/25/19) 22 (11/20/19) 21 (10/23/19) 25 OH VITAMIN D ng/mL 62.4 (09/18/19) 44.4 (05/01/19) BUN/CREATININE (MASS RATIO) IN SER/PLAS 9.3 (12/25/19) 11.1 (11/20/19) 10.8 (10/23/19) Calcium mg/dL 10.0 (12/25/19) 10.0 (12/04/19) 10.2 (11/20/19) Calcium Phos Product 61 (12/25/19) 49 (11/20/19) 58 (10/23/19) CALCIUM (MG/DL) CORRECTED FOR ALBUMIN IN SER/PLAS mg/dL 10.2 (12/25/19) 10.4 (11/20/19) 10.4 (10/23/19) PHOSPHATE (MG/DL) IN SER/PLAS mg/dL 6.1 (12/25/19) 4.8 (11/20/19) 5.7 (10/23/19) IPTH pg/mL 506 (12/25/19) 167 (09/18/19) 164 (07/24/19) Vascular Access Assessment: Type of access: Mcekyvo29/2019 Surgeon - Lary GARDNER Access working well Impression and Plan No changes, stable dialysis Ernie Pompa MD [ Signed And locked electronically On 01/08/2020 at 12:12:00 PM ] Transcribed: Ernie Pompa ( 01/08/2020 ) documented in this encounter Plan of Treatment Not on filedocumented as of this encounter Visit Diagnoses Not on filedocumented in this encounter
--- OUTSIDE RECORDS SUMMARY | 2021-10-27 05:45 | XMS_ITS | Encounter Summary ---
:1945 Author Organization [facility] Address [address] [place] [address] Care Team Providers Name Role Phone Unavailable Primary Care Provider Unavailable Encounter Details Date Type Department Care Team Description 11/13/2019 Orders Only [facility] f Ernie Guzmán MD [phone] [place] [address] [place], [place] [phone] (Wo rk) Social History Tobacco Use Types Packs/Day Years Used Date Smoking Tobacco: Unknown Comments: Smoking History Info:Patient n ot screened Sex Assigned at Date Recorded Not on file documented as of this encounter Plan of Treatment Not on filedocumented as of this encounter Procedures Procedure Name Priority Date/Time Associated Diagnosis Comme nts HEMATOLOGY Routine 11/13/2019 Results for thi s procedure are in the resu lts section. CHEMISTRY Routine 11/13/2019 Results for thi s procedure are in the resu lts section. documented in this encounter Results Spectrae Chemistry (11/13/2019) P athologist Signature Calcium 9.9 8.4 - 10.2 APS SPECTRA mg/dL [facility] Specimen (Source) Anatomical Collection Method Collection Time Re ceived Time Location / / Volume Laterality 11/13/2019 11/14/2019 1:05 PM CDT Narrative APS SPECTRA [facility] - 11/14/2019 Unless otherwise specified, test(s) performed at: [facility], [address] [place] [address] SUPERCHARGE REPAIR SUPERVISOR: Alec Payan M.D. For any questions, please call customer service at FREQUENCY:OTHER Resulting Agency Comment Specimen source: Serum Ernie Pompa MD LAB BLOOD ORDERABLES Performing Organization Address City/State/ZIP Code Phon e Number APS SPECTRA [facility] (ABNORMAL) HEMATOLOGY (11/13/2019) Patholo gist Method Time Signature Neutrophils 75.7 (H) 40.0 - APS [facility]RA 75.0 % [facility] Lymphocytes 11.1 (L) 19.0 - APS [facility] Relative 48.0 % [facility] Monocytes 8.3 3.0 - 10.0 APS [facility] % [facility] Eosinophils 1.5 0.0 - 7.0 APS [facility] Relative % [facility] Basophils 0.7 0.0 - 1.5 A[facility] Relative % [facility] YASMIN 2.7 0.0 - 4.0 APS SPECTRA % [facility] Hemoglobin 10.1 (L) 14.0 - APS SPECTRA 18.0 g/dL [facility] Hemoglobin x 3 30.3 (L) 42.0 - APS SPECTRA 54.0 % [facility] Specimen (Source) Anatomical Collection Method Collection Time Re ceived Time Location / / Volume Laterality 11/13/2019 11/14/2019 11:1 1 AM CDT Narrative APS SPECTRA [facility] - 11/14/2019 Unless otherwise specified, test(s) performed at: [facility], [address] [place] [address] SUPERCHARGE REPAIR SUPERVISOR: Alec Payan M.D. For any questions, please call customer service at FREQUENCY:OTHER Resulting Agency Comment Specimen source: Blood Ernie Pompa MD LAB BLOOD ORDERABLES Performing Organization Address City/[facility] Phon e Number APS SPECTRA [facility] documented in this encounter Visit Diagnoses Not on filedocumented in this encounter
--- OUTSIDE RECORDS SUMMARY | 2021-10-27 05:45 | XMS_ITS | Encounter Summary ---
:1945 Author Organization [facility] Address [address] [place] [address] Care Team Providers Name Role Phone Unavailable Primary Care Provider Unavailable Encounter Details Date Type Department Care Team Description 12/25/2019 Orders Only [facility] f Ernie Guzmán MD [phone] [place] [address] [place], [place] [phone] (Wo rk) Social History Tobacco Use Types Packs/Day Years Used Date Smoking Tobacco: Unknown Comments: Smoking History Info:Patient n ot screened Sex Assigned at Date Recorded Not on file documented as of this encounter Plan of Treatment Not on filedocumented as of this encounter Procedures Procedure Name Priority Date/Time Associated Diagnosis Comme nts POST CHEMISTRY Routine 12/25/2019 Results for t his procedure are in the resu lts section. IMMUNO CHEMISTRY Routine 12/25/2019 Results for this procedure are in the resu lts section. HEMATOLOGY Routine 12/25/2019 Results for thi s procedure are in the resu lts section. CHEMISTRY Routine 12/25/2019 Results for thi s procedure are in the resu lts section. CHEMISTRY Routine 12/25/2019 Results for thi s procedure are in the resu lts section. documented in this encounter Results (ABNORMAL) Spectrae Chemistry (12/25/2019) P athologist Signature PTH 506 (H) 16 - 80 APS SPECTRA pg/mL [facility] Specimen (Source) Anatomical Collection Method Collection Time Re ceived Time Location / / Volume Laterality 12/25/2019 12/26/2019 8:26 PM CDT Narrative APS SPECTRA [facility] - 12/27/2019 Unless otherwise specified, test(s) performed at: [facility], [address] [place] [address] LAST PATTERN GRADER: lAec Payan M.D. For any questions, please call customer service at FREQUENCY:MONTHLY Resulting Agency Comment Specimen source: Plasma Erine Pompa MD LAB BLOOD ORDERABLES Performing Organization Address City/[facility] Phon e Number APS SPECTRA [facility] IMMUNO CHEMISTRY (12/25/2019) P athologist Signature Hep B Surface Negative Negative APS SPECTRA Ag [facility] Specimen (Source) Anatomical Collection Method Collection Time Re ceived Time Location / / Volume Laterality 12/25/2019 12/26/2019 5:50 PM CDT Narrative APS SPECTRA [facility] - 12/27/2019 Unless otherwise specified, test(s) performed at: [facility], [address] [place] [address] LAST PATTERN GRADER: Alec Payan M.D. For any questions, please call customer service at FREQUENCY:MONTHLY Resulting Agency Comment Specimen source: Serum Ernie Pompa MD LAB BLOOD ORDERABLES Performing Organization Address [facility] Phon e Number APS SPECTRA [facility] (ABNORMAL) POST CHEMISTRY (12/25/2019) P athologist Signature BUN Post <2 (L) 6 - 19 APS SPECTRA Dialysis mg/dL [facility] Comment: Verified by repeat analysis. Specimen (Source) Anatomical Collection Method Collection Time Re ceived Time Location / / Volume Laterality 12/25/2019 12/26/2019 7:48 PM CDT Narrative APS SPECTRA [facility] - 12/27/2019 Unless otherwise specified, test(s) performed at: [facility], [address] [place] [address] LAST PATTERN GRADER: Alec Payan M.D. For any questions, please call customer service at FREQUENCY:MONTHLY Resulting Agency Comment Specimen source: Plasma Ernie Pompa MD LAB BLOOD ORDERABLES Performing Organization Address City/[facility] Phon e Number APS SPECTRA [facility] (ABNORMAL) Spectrae Chemistry (12/25/2019) Patholo gist Method Time Signature BUN 48 (H) 6 - 19 APS SPECTRA mg/dL [facility] Creatinine 5.14 (H) 0.60 - APS SPECTRA 1.30 mg/dL [...] - 10.2 APS SPECTRA mg/dL [facility] Corrected 10.2 8.4 - 10.2 APS SPECTRA Calcium mg/dL [facility] Comment: Corrected Calcium is not equivalent to m easured Ionized Calcium. Phosphorus 6.1 (H) 2.6 - 4.5 mg/dL APS SPECTRA [facility] Calcium Phosphorus Product 61 (H) 0 - 54 APS SPECTRA [facility] Calcium Phosporus Product, Cor 62 (H) 0 - 54 APS SPECTRA [facility] Alkaline Phosphatase 111 40 - 129 U/L APS SP ECTRA [facility] Total Protein 6.4 6.0 - 8.5 g/dL APS SPECTRA [facility] Albumin 3.8 3.5 - 5.2 g/dL APS SPECTRA [facility] [place] Globulin, Total 2.6 2.0 - 4.0 g/dL APS SPECT RA [facility] A/G Ratio 1.5 1.0 - 2.0 APS SPECTRA [facility] Magnesium 2.0 1.6 - 2.6 mg/dL APS SPECTRA [facility] Iron 116 45 - 160 mcg/dL APS SPECTRA [place] [facility] UIBC 140 (L) 155 - 355 mcg/dL APS SPECTRA [facility] TIBC 256 185 - 515 mcg/dL APS SPECTRA [facility] Iron Saturation (TSat) 45 20 - 55 % APS SPE CTRA [facility] Ferritin 732 (H) 22 - 322 ng/mL APS SPECTRA [facility] [place] Specimen (Source) Anatomical Collection Method Collection Time Re ceived Time Location / / Volume Laterality 12/25/2019 12/26/2019 5:50 PM CDT Narrative APS SPECTRA [facility] - 12/27/2019 Unless otherwise specified, test(s) performed at: [facility], [address] [place] [address] LAST PATTERN GRADER: Alec Payan M.D. For any questions, please call customer service at FREQUENCY:MONTHLY Resulting Agency Comment Specimen source: Serum Ernie Pompa MD LAB BLOOD ORDERABLES Performing Organization Address City/State/ZIP Code Phon e Number APS SPECTRA [facility] (ABNORMAL) HEMATOLOGY (12/25/2019) Analysis Performed At Patho logist Time Signature WBC 6.12 4.80 - APS SPECTRA 10.80 [facility] 1000/mcL RBC 3.25 (L) 4.70 - APS SPECTRA 6.10 [facility] mill/mcL Hemoglobin 11.3 (L) 14.0 - APS SPECTRA 18.0 g/dL [facility] Hemoglobin x 3 33.9 (L) 42.0 - APS SPECTRA 54.0 % [facility] Hematocrit 34.7 (L) 42.0 - APS SPECTRA 52.0 % [facility] MCV 107 (H) 80 - 100 APS SPECTRA fl [facility] MCH 34.8 (H) 27.0 - APS SPECTRA 31.0 pg [facility] MCHC 32.6 30.0 - APS SPECTRA 36.0 g/dL [facility] RDW 14.4 11.5 - APS SPECTRA 14.5 % [facility] Platelets 157 130 - 400 APS SPECTRA 1000/mcL [facility] Specimen (Source) Anatomical Collection Method Collection Time Re ceived Time Location / / Volume Laterality 12/25/2019 12/26/2019 8:26 PM CDT Narrative APS SPECTRA [facility] - 12/27/2019 Unless otherwise specified, test(s) performed at: [facility], [address] [place] [address] LAST PATTERN GRADER: Alec Payan M.D. For any questions, please call customer service at FREQUENCY:MONTHLY Resulting Agency Comment Specimen source: Blood Ernie Pompa MD LAB BLOOD ORDERABLES Performing Organization Address City/[facility]/ZIP Code Phon e Number APS SPECTRA [facility] documented in this encounter Visit Diagnoses Not on filedocumented in this encounter
--- OUTSIDE RECORDS SUMMARY | 2021-10-27 05:45 | XMS_ITS | Encounter Summary ---
:1945 Author Organization [facility] Address [address] [place] [address] Care Team Providers Name Role Phone Unavailable Primary Care Provider Unavailable Encounter Details Date Type Department Care Team Description 01/22/2020 Orders Only [facility] O f Ernie Guzmán MD [phone] [place] [address] [place], [place] [phone] (Wo rk) Social History Tobacco Use Types Packs/Day Years Used Date Smoking Tobacco: Unknown Comments: Smoking History Info:Patient n ot screened Sex Assigned at Date Recorded Not on file documented as of this encounter Plan of Treatment Not on filedocumented as of this encounter Procedures Procedure Name Priority Date/Time Associated Diagnosis Comme nts HD KINETICS Routine 01/22/2020 Results for thi s procedure are i n the results section . POST CHEMISTRY Routine 01/22/2020 Results for t his procedure are i n the results section . IMMUNO CHEMISTRY Routine 01/22/2020 Results for this procedure are i n the results section . HEMATOLOGY Routine 01/22/2020 Results for thi s procedure are i n the results section . CHEMISTRY Routine 01/22/2020 Results for thi s procedure are i n the results section . SPECTRA [facility] LAB RESULTS Routine 01/22/2020 Resul ts for this procedure are i n the results section . documented in this encounter Results Spectra [facility] Lab Results (01/22/2020) P athologist Signature spKt/V 1.78 [facility] (Daugirdas II) eNPCR 1.26 [facility] eKt/V 1.55 [facility] ([place]) PCR 90.57 [facility] nPCR_HD 1.35 [facility] spKt/V Gotch 1.86 [facility] eKt/V Gotch 1.61 [facility] eKdrt/V 1.61 [facility] Specimen (Source) Anatomical Location Collection Method / Collectio n Time Received Time / Laterality Volume 01/22/2020 01/22/2020 [facility] Ordering Provider LAB BLOOD ORDERABLES Performing Organization Address City/State/ZIP Code Phon e Number [facility] (ABNORMAL) HEMATOLOGY (01/22/2020) Analysis Performed At Patho logist Time Signature WBC 6.48 4.80 - APS SPECTRA 10.80 [facility] 1000/mcL RBC 3.06 (L) 4.70 - APS SPECTRA 6.10 [facility] mill/mcL Hemoglobin 10.3 (L) 14.0 - APS SPECTRA 18.0 g/dL [facility] Hemoglobin x 3 30.9 (L) 42.0 - APS SPECTRA 54.0 % [facility] Hematocrit 31.6 (L) 42.0 - APS SPECTRA 52.0 % [facility] MCV 103 (H) 80 - 100 APS SPECTRA fl [facility] MCH 33.6 (H) 27.0 - APS [facility]RA 31.0 pg [facility] MCHC 32.6 30.0 - APS SPECTRA 36.0 g/dL [facility] RDW 13.1 11.5 - APS [facility]RA 14.5 % [facility] Platelets 158 130 - 400 APS SPECTRA 1000/mcL [facility] Specimen (Source) Anatomical Collection Method Collection Time Re ceived Time Location / / Volume Laterality 01/22/2020 01/23/2020 8:20 PM CIGARETTE BOOK MAKER Narrative APS SPECTRA [facility] - 01/24/2020 Unless otherwise specified, test(s) performed at: [facility], [address] [place], [place] [id number] DIGESTER: Alec Payan M.D. For any questions, please call customer service at FREQUENCY:MONTHLY Resulting Agency Comment Specimen source: Blood Ernie Pompa MD LAB BLOOD ORDERABLES Performing Organization Address City/State/ZIP Code Phon e Number APS SPECTRA [facility] IMMUNO CHEMISTRY (01/22/2020) P athologist Signature Hep B Surface Negative Negative APS SPECTRA Ag [facility] Specimen (Source) Anatomical Collection Method Collection Time Re ceived Time Location / / Volume Laterality 01/22/2020 01/23/2020 8:13 PM CIGARETTE BOOK MAKER Narrative APS SPECTRA [facility] - 01/24/2020 Unless otherwise specified, test(s) performed at: [facility], [address] [place] [address] DIGESTER: Alec Payan M.D. For any questions, please call customer service at FREQUENCY:MONTHLY Resulting Agency Comment Specimen source: Serum Ernie Pompa MD LAB BLOOD ORDERABLES Performing Organization Address City/[facility] Phon e Number APS SPECTRA [facility] HD KINETICS (01/22/2020) P athologist Signature % Urea 77 65 - 80 % APS SPECTRA Reduction [facility] Specimen (Source) Anatomical Collection Method Collection Time Re ceived Time Location / / Volume Laterality 01/22/2020 01/23/2020 8:14 PM CIGARETTE BOOK MAKER Narrative APS SPECTRA [facility] - 01/24/2020 Unless otherwise specified, test(s) performed at: [facility], [address] [place] [address] DIGESTER: Alec Payan M.D. For any questions, please call customer service at FREQUENCY:MONTHLY Resulting Agency Comment Specimen source: Serum Ernie Pompa MD LAB BLOOD ORDERABLES Performing Organization Address City/State/ZIP Code Phon e Number APS SPECTRA [facility] (ABNORMAL) Spectrae Chemistry (01/22/2020) Patholo gist Method Time Signature BUN 70 (H) 6 - 19 APS SPECTRA mg/dL [facility] Creatinine 5.42 (H) 0.60 - APS SPECTRA 1.30 mg/dL [facility] BUN/Creatinine 12.9 10.0 - APS SPECTRA Ratio 20.0 [facility] Sodium 135 (L) 136 - 145 APS SPECTRA mEq/L [facility] Potassium 4.4 3.5 - 5.1 APS SPECTRA mEq/L [facility] Chloride 100 96 - 108 APS SPECTRA mEq/L [facility] Bicarbonate 21 (L) 22 - 29 APS SPECTRA (CO2) mEq/L [facility] Calcium 9.7 8.4 - 10.2 APS SPECTRA mg/dL [facility] Corrected 10.0 8.4 - 10.2 APS SPECTRA Calcium mg/dL [facility] Comment: Corrected Calcium is not equivalent to m easured Ionized Calcium. Phosphorus 6.4 (H) 2.6 - 4.5 mg/dL APS SPECTRA [facility] Calcium Phosphorus Product 62 (H) 0 - 54 APS SPECTRA [facility] Calcium Phosporus Product, Cor 64 (H) 0 - 54 APS SPECTRA [facility] Total Protein 6.2 6.0 - 8.5 g/dL APS SPECTRA [facility] Albumin 3.6 3.5 - 5.2 g/dL APS SPECTRA [facility] [place] Globulin, Total 2.6 2.0 - 4.0 g/dL APS SPECT RA [facility] A/G Ratio 1.4 1.0 - 2.0 APS SPECTRA [facility] Iron 113 45 - 160 mcg/dL APS SPECTRA [facility] UIBC 122 (L) 155 - 355 mcg/dL APS SPECTRA [facility] TIBC 235 185 - 515 mcg/dL APS SPECTRA [facility] Iron Saturation (TSat) 48 20 - 55 % APS SPE CTRA [facility] Specimen (Source) Anatomical Collection Method Collection Time Re ceived Time Location / / Volume Laterality 01/22/2020 01/23/2020 8:13 PM CIGARETTE BOOK MAKER Narrative APS SPECTRA [facility] - 01/24/2020 Unless otherwise specified, test(s) performed at: [facility], [address] [place] [address] DIGESTER: Alec Payan M.D. For any questions, please call customer service at FREQUENCY:MONTHLY Resulting Agency Comment Specimen source: Serum Ernie Pompa MD LAB BLOOD ORDERABLES Performing Organization Address City/[facility] Phon e Number APS SPECTRA [facility] POST CHEMISTRY (01/22/2020) P athologist Signature BUN Post 16 6 - 19 APS SPECTRA Dialysis mg/dL [facility] Specimen (Source) Anatomical Collection Method Collection Time Re ceived Time Location / / Volume Laterality 01/22/2020 01/23/2020 1:17 PM CIGARETTE BOOK MAKER Narrative APS SPECTRA [facility] - 01/23/2020 Unless otherwise specified, test(s) performed at: [facility], [address] [place] [address] DIGESTER: Alec Payan M.D. For any questions, please call customer service at FREQUENCY:MONTHLY Resulting Agency Comment Specimen source: Plasma Ernie Pompa MD LAB BLOOD ORDERABLES Performing Organization Address City/[facility] Phon e Number APS SPECTRA [facility] documented in this encounter Visit Diagnoses Not on filedocumented in this encounter
--- OUTSIDE RECORDS SUMMARY | 2021-10-27 05:45 | XMS_ITS | Encounter Summary ---
:1945 Author Organization [facility] Address [address] [place] [address] Care Team Providers Name Role Phone Unavailable Primary Care Provider Unavailable Encounter Details Date Type Department Care Team Description 10/23/2019 [facility] Only [facility] O f Ernie Guzmán MD [address] [place] [address] [place], [place] [phone] (Wo rk) Social History Tobacco Use Types Packs/Day Years Used Date Smoking Tobacco: Unknown Comments: Smoking History Info:Patient n ot screened Sex Assigned at Date Recorded Not on file documented as of this encounter Plan of Treatment Not on filedocumented as of this encounter Procedures Procedure Name Priority Date/Time Associated Diagnosis Comme nts IMMUNO CHEMISTRY Routine 10/23/2019 Results for this procedure are in the resu lts section. HEMATOLOGY Routine 10/23/2019 Results for thi s procedure are in the resu lts section. CHEMISTRY Routine 10/23/2019 Results for thi s procedure are in the resu lts section. documented in this encounter Results IMMUNO CHEMISTRY (10/23/2019) P athologist Signature Hep B Surface Negative Negative APS SPECTRA Ag [facility] Specimen (Source) Anatomical Collection Method Collection Time Re ceived Time Location / / Volume Laterality 10/23/2019 10/24/2019 8:38 PM CDT Resulting Agency Comment Specimen source: Serum Ernie Pompa MD LAB BLOOD ORDERABLES Performing Organization Address City/State/ZIP Code Phon e Number APS S[facility]RA [facility] (ABNORMAL) Spectrae Chemistry (10/23/2019) Patholo gist Method Time Signature BUN 47 (H) 6 - 19 [facility] mg/dL [facility] Creatinine 4.34 (H) 0.60 - APS [facility] 1.30 mg/dL [facility] BUN/Creatinine 10.8 10.0 - [facility] Ratio 20.0 [facility] Sodium 137 136 - 145 [facility] mEq/L [facility] Potassium 4.0 3.5 - 5.1 [facility] mEq/L [facility] Chloride 102 96 - 108 [facility] mEq/L [facility] [...] 1.0 - 2.0 [facility] Iron 101 45 - 160 mcg/dL APS SPECT[facility] [place] [facility] UIBC 154 (L) 155 - 355 mcg/dL APS SPECTRA [facility] TIBC 255 185 - 515 mcg/dL APS SPECTRA [facility] Iron Saturation (TSat) 40 20 - 55 % APS SPE CTRA [facility] Specimen (Source) Anatomical Collection Method Collection Time Re ceived Time Location / / Volume Laterality 10/23/2019 10/24/2019 8:38 PM CDT Narrative [facility]PS [facility] - 10/25/2019 Unless otherwise specified, test(s) performed at: [facility], [address] [place] [address] UNIVERSITY COUNSELOR: Alec Payan M.D. For any questions, please call customer service at FREQUENCY:MONTHLY Resulting Agency Comment Specimen source: Serum Ernie Pompa MD LAB BLOOD ORDERABLES Performing Organization Address City/State/ZIP Code Phon e Number [facility]PS [facility] (ABNORMAL) HEMATOLOGY (10/23/2019) [facility] gist Method Time Signature WBC 6.46 4.80 - [facility]PS [facility]RA 10.80 [facility] 1000/mcL RBC 3.65 (L) 4.70 - APS SPECTRA 6.10 [facility] mill/mcL Hemoglobin 11.6 (L) 14.0 - A[facility] 18.0 g/dL [facility] Hemoglobin x 3 34.8 (L) 42.0 - [facility] 54.0 % [facility] Hematocrit 35.7 (L) 42.0 - APS [facility]RA 52.0 % [facility] MCV 98 80 - 100 [facility] fl [facility] MCH 31.7 (H) 27.0 - [facility] 31.0 pg [facility] MCHC 32.4 30.0 - [facility] 36.0 g/dL [facility] RDW 16.2 (H) 11.5 - [facility] 14.5 % [facility] Neutrophils 79.6 (H) 40.0 - [facility] 75.0 % [facility] Lymphocytes 9.9 (L) 19.0 - A[facility] Relative 48.0 % [facility] Monocytes 7.0 3.0 - 10.0 [facility]PS [facility] % [facility] Eosinophils 1.5 0.0 - 7.0 APS [facility] Relative % [facility] Basophils 0.2 0.0 - 1.5 [facility] Relative % [facility] YASMIN 1.8 0.0 - 4.0 APS SPECT[facility] % [facility] Platelets 174 130 - 400 APS SPECTRA 1000/mcL [facility] Specimen (Source) Anatomical Collection Method Collection Time Re ceived Time Location / / Volume Laterality 10/23/2019 10/24/2019 7:28 PM CDT Narrative APS SPECTRA [facility] - 10/24/2019 Unless otherwise specified, test(s) performed at: [facility], [address] [place] [address] UNIVERSITY COUNSELOR: Alec Payan M.D. For any questions, please call customer service at FREQUENCY:MONTHLY Resulting Agency Comment Specimen source: Blood Ernie Pompa MD LAB BLOOD ORDERABLES Performing Organization Address City/State/ZIP Code Phon e Number [facility] documented in this encounter Visit Diagnoses Not on filedocumented in this encounter
--- OUTSIDE RECORDS SUMMARY | 2021-10-27 05:45 | XMS_ITS | Encounter Summary ---
:1945 Author Organization [facility] Address [address] [place] [address] Care Team Providers Name Role Phone Unavailable Primary Care Provider Unavailable Encounter Details Date Type Department Care Team Description 12/18/2019 Orders Only [facility] O f Ernie Guzmán MD [phone] [place] [address] [place], [place] [phone] (Wo rk) Social History Tobacco Use Types Packs/Day Years Used Date Smoking Tobacco: Unknown Comments: Smoking History Info:Patient n ot screened Sex Assigned at Date Recorded Not on file documented as of this encounter Plan of Treatment Not on filedocumented as of this encounter Procedures Procedure Name Priority Date/Time Associated Diagnosis Comme nts HEMATOLOGY Routine 12/18/2019 Results for thi s procedure are in the resu lts section. documented in this encounter Results (ABNORMAL) HEMATOLOGY (12/18/2019) Analysis Performed At Patho logist Time Signature Hemoglobin 11.2 (L) 14.0 - APS SPECTRA 18.0 g/dL [facility] Hemoglobin x 3 33.6 (L) 42.0 - APS SPECTRA 54.0 % [facility] Specimen (Source) Anatomical Collection Method Collection Time Re ceived Time Location / / Volume Laterality 12/18/2019 12/19/2019 11:0 2 AM CDT Narrative APS SPECTRA [facility] - 12/19/2019 Unless otherwise specified, test(s) performed at: [facility], [address] [place] [address] SUPERVISOR COLOR MAKING: Alec Payan M.D. For any questions, please call customer service at FREQUENCY:OTHER Resulting Agency Comment Specimen source: Blood Ernie Pompa MD LAB BLOOD ORDERABLES Performing Organization Address City/State/ZIP Code Phon e Number [facility]PS S[facility]RA [facility] documented in this encounter Visit Diagnoses Not on filedocumented in this encounter
--- OUTSIDE RECORDS SUMMARY | 2021-10-27 05:46 | XMS_ITS | Encounter Summary ---
:1945 Author Organization [facility] Address [address] [place] [address] Care Team Providers Name Role Phone Unavailable Primary Care Provider Unavailable Encounter Details Date Type Department Care Team Description 07/03/2019 Orders Only [facility] O f Ernie Guzmán MD [phone] [place] [address] [place], [place] [phone] (Wo rk) Social History Tobacco Use Types Packs/Day Years Used Date Smoking Tobacco: Unknown Comments: Smoking History Info:Patient n ot screened Sex Assigned at Date Recorded Not on file documented as of this encounter Plan of Treatment Not on filedocumented as of this encounter Procedures Procedure Name Priority Date/Time Associated Diagnosis Comme nts HD KINETICS Routine 07/03/2019 Results for thi s procedure are i n the results section . POST CHEMISTRY Routine 07/03/2019 Results for t his procedure are i n the results section . IMMUNO CHEMISTRY Routine 07/03/2019 Results for this procedure are i n the results section . HEMATOLOGY Routine 07/03/2019 Results for thi s procedure are i n the results section . CHEMISTRY Routine 07/03/2019 Results for thi s procedure are i n the results section . SPECTRA [facility] LAB RESULTS Routine 07/03/2019 Resul ts for this procedure are i n the results section . documented in this encounter Results Spectra [facility] Lab Results (07/03/2019) P athologist Signature spKt/V 1.44 [facility] (Daugirdas II) eKt/V Gotch 1.29 [facility] eKt/V 1.26 [facility] ([place]) nPCR_HD 0.67 [facility] eKdrt/V 1.29 [facility] eNPCR 0.63 [facility] spKt/V Gotch 1.48 [facility] PCR 60.71 [facility] Specimen (Source) Anatomical Location Collection Method / Collectio n Time Received Time / Laterality Volume 07/03/2019 07/03/2019 [facility] Ordering Provider LAB BLOOD ORDERABLES Performing Organization Address [facility] Phon e Number [facility] IMMUNO CHEMISTRY (07/03/2019) P athologist Signature Hep B Surface Negative Negative APS SPECTRA Ag [facility] Specimen (Source) Anatomical Collection Method Collection Time Re ceived Time Location / / Volume Laterality 07/03/2019 07/04/2019 8:19 PM CDT Narrative APS SPECTRA [facility] - 07/05/2019 Unless otherwise specified, test(s) performed at: [facility], [address] [place] [address] PARK GUARD: Alec Payan M.D. For any questions, please call customer service at FREQUENCY:OTHER Resulting Agency Comment Specimen source: Serum Ernie Pompa MD LAB BLOOD ORDERABLES Performing Organization Address [facility] Phon e Number APS SPECTRA [facility] HD KINETICS (07/03/2019) P athologist Signature % Urea 71 65 - 80 % APS SPECTRA Reduction [facility] Specimen (Source) Anatomical Collection Method Collection Time Re ceived Time Location / / Volume Laterality 07/03/2019 07/04/2019 8:19 PM CDT Narrative [facility]PS [facility]RA [facility] - 07/05/2019 Unless otherwise specified, test(s) performed at: [facility], [address] [place] [address] PARK GUARD: Alec Payan M.D. For any questions, please call customer service at FREQUENCY:OTHER Resulting Agency Comment Specimen source: Serum Ernie Pompa MD LAB BLOOD ORDERABLES Performing Organization Address City/[facility] Phon e Number APS SPECTRA [facility] (ABNORMAL) Spectrae Chemistry (07/03/2019) P athologist Signature BUN 35 (H) 6 - 19 APS SPECTRA mg/dL [facility] Specimen (Source) Anatomical Collection Method Collection Time Re ceived Time Location / / Volume Laterality 07/03/2019 07/04/2019 8:19 PM CDT Narrative APS S[facility]RA [facility] - 07/05/2019 Unless otherwise specified, test(s) performed at: [facility], [address] [place] [address] PARK GUARD: Alec Payan M.D. For any questions, please call customer service at FREQUENCY:OTHER Resulting Agency Comment Specimen source: Serum Ernie Pompa MD LAB BLOOD ORDERABLES Performing Organization Address City/[facility] Phon e Number [facility]PS S[facility]RA [facility] POST CHEMISTRY (07/03/2019) P athologist Signature BUN Post 10 6 - 19 APS SPECTRA Dialysis mg/dL [facility] Specimen (Source) Anatomical Collection Method Collection Time Re ceived Time Location / / Volume Laterality 07/03/2019 07/04/2019 5:30 PM CDT Narrative APS S[facility]RA [facility] - 07/04/2019 Unless otherwise specified, test(s) performed at: [facility], [address] [place] [address] PARK GUARD: Alec Payan M.D. For any questions, please call customer service at FREQUENCY:OTHER Resulting Agency Comment Specimen source: Plasma Ernie Pompa MD LAB BLOOD ORDERABLES Performing Organization Address [facility] Phon e Number APS SPECTRA [facility] (ABNORMAL) HEMATOLOGY (07/03/2019) Analysis Performed At Patho logist Time Signature Hemoglobin 11.0 (L) 14.0 - APS SPECTRA 18.0 g/dL [facility] Hemoglobin x 3 33.0 (L) 42.0 - APS SPECTRA 54.0 % [facility] Specimen (Source) Anatomical Collection Method Collection Time Re ceived Time Location / / Volume Laterality 07/03/2019 07/04/2019 3:13 PM CDT Narrative APS SPECTRA [facility] - 07/04/2019 Unless otherwise specified, test(s) performed at: [facility], [address] [place] [address] PARK GUARD: Alec Payan M.D. For any questions, please call customer service at FREQUENCY:OTHER Resulting Agency Comment Specimen source: Blood Ernie Pompa MD LAB BLOOD ORDERABLES Performing Organization Address City/[facility] Phon e Number APS S[facility]RA [facility] documented in this encounter Visit Diagnoses Not on filedocumented in this encounter
--- OUTSIDE RECORDS SUMMARY | 2021-10-27 05:46 | XMS_ITS | Encounter Summary ---
:1945 Author Organization [facility] Address [address] [place] [address] Care Team Providers Name Role Phone Unavailable Primary Care Provider Unavailable Encounter Details Date Type Department Care Team Description 09/04/2019 Orders Only [facility] O f Ernie Guzmán MD [phone] [place] [address] [place], [place] [phone] (Wo rk) Social History Tobacco Use Types Packs/Day Years Used Date Smoking Tobacco: Unknown Comments: Smoking History Info:Patient n ot screened Sex Assigned at Date Recorded Not on file documented as of this encounter Plan of Treatment Not on filedocumented as of this encounter Procedures Procedure Name Priority Date/Time Associated Diagnosis Comme nts HEMATOLOGY Routine 09/04/2019 Results for thi s procedure are in the resu lts section. documented in this encounter Results (ABNORMAL) HEMATOLOGY (09/04/2019) Analysis Performed At Patho logist Time Signature Hemoglobin 11.1 (L) 14.0 - APS SPECTRA 18.0 g/dL [facility] Hemoglobin x 3 33.3 (L) 42.0 - APS SPECTRA 54.0 % [facility] Specimen (Source) Anatomical Collection Method Collection Time Re ceived Time Location / / Volume Laterality 09/04/2019 09/05/2019 11:5 6 AM CDT Narrative APS SPECTRA [facility] - 09/05/2019 Unless otherwise specified, test(s) performed at: [facility], [address] [place] [address] SHIPPING SPECIALIST: Alec Payan M.D. For any questions, please call customer service at FREQUENCY:OTHER Resulting Agency Comment Specimen source: Blood Ernie Pompa MD LAB BLOOD ORDERABLES Performing Organization Address City/State/ZIP Code Phon e Number [facility] documented in this encounter Visit Diagnoses Not on filedocumented in this encounter
--- OUTSIDE RECORDS SUMMARY | 2021-10-27 05:46 | XMS_ITS | Encounter Summary ---
:1945 Author Organization [facility] Address [address] [place] [address] Care Team Providers Name Role Phone Unavailable Primary Care Provider Unavailable Encounter Details Date Type Department Care Team Description 05/10/2019 Orders Only [facility] O f Ernie Guzmán MD [address] [place] [address] [place], [place] [phone] (Wo rk) Social History Tobacco Use Types Packs/Day Years Used Date Smoking Tobacco: Unknown Comments: Smoking History Info:Patient n ot screened Sex Assigned at Date Recorded Not on file documented as of this encounter Plan of Treatment Not on filedocumented as of this encounter Procedures Procedure Name Priority Date/Time Associated Diagnosis Comme nts HEMATOLOGY Routine 05/10/2019 Results for thi s procedure are in the resu lts section. documented in this encounter Results (ABNORMAL) HEMATOLOGY (05/10/2019) Analysis Performed At Patho logist Time Signature Hemoglobin 8.5 (L) 14.0 - APS SPECTRA 18.0 g/dL [facility] Hemoglobin x 3 25.5 (L) 42.0 - APS SPECTRA 54.0 % [facility] Specimen (Source) Anatomical Collection Method Collection Time Re ceived Time Location / / Volume Laterality 05/10/2019 05/11/2019 9:28 AM ELECTRICIAN ELEVATOR MAINTENANCE Narrative APS SPECTRA [facility] - 05/11/2019 Unless otherwise specified, test(s) performed at: [facility], [address] [place] [address] NUISANCE WILDLIFE SPECIALIST: Tawanna green M.D. For any questions, please call customer service at FREQUENCY:OTHER Resulting Agency Comment Specimen source: Blood Ernie Pompa MD LAB BLOOD ORDERABLES Performing Organization Address City/State/ZIP Code Phon e Number [facility]PS S[facility]RA [facility] documented in this encounter Visit Diagnoses Not on filedocumented in this encounter
--- OUTSIDE RECORDS SUMMARY | 2021-10-27 05:46 | XMS_ITS | Encounter Summary ---
:1945 Author Organization [facility] Address [address] [place] [address] Care Team Providers Name Role Phone Unavailable Primary Care Provider Unavailable Encounter Details Date Type Department Care Team Description 10/09/2019 Treatment [facility] O Ernie Gómez MD [address] [place] [address] [place], [place] [phone] (Wo rk) Social History Tobacco Use Types Packs/Day Years Used Date Smoking Tobacco: Unknown Comments: Smoking History Info:Patient n ot screened Sex Assigned at Date Recorded Not on file documented as of this encounter Miscellaneous Notes Dialysis Note - Ernie Pompa MD - 10/09/2019 12:54 PM CDT Date: Oct 09, 2019 Patient Name: Shaun Ocampo : 1945 Chart #: [id number] Sex: M This patient was personally seen for a basic visit as part of routine weekly dialysis care. A reviewof the dialysis treatment, blood pressure, estimated dry weight and recent lab values was made. These were discussed with the patient and staff as necessary. Treatment Data for 10/09/2019 started at:10:50 AM Dialyzer: 180NRe Optiflux Na: 138 mEq/L Bicarb: 26 mEq/L Dialysate: 2.0 K, 2.25 Ca, 1.0 Mg, 100 Dextrose (G2231) Dialysate/Machine Temp (prescribed): 37 C Dialysate/Machine Temp (actual): 37 C BFR (prescribed): 550 BFR (actual): 550 Prescribed time: 4:0 EDW: 108 kg Access Type: Active (In Use):AVFistula-Standard/Left Upper Arm Pre Dialysis Vitals (for 10/09/2019 10:40 AM ) Pre BP (sit): 183/65 Pre Wt: 110.6 kg Temp: 98.1 F Post Dialysis Vitals (for 10/07/2019 2:31 PM ) Post BP (sit): 121/52 Post Wt: 107.5 kg Current Dialysis Vitals (for 10/09/2019 12:03 PM ) BP (sit): 135/54 AP(-) / FILTER PRESS TENDER: 204/180 Pulse: 65 Chairside data as of 10/09/2019 12:03 PM Last 3 Treatments 10/07/2019 10/04/2019 10/02/2019 EDW (kg) 108 108 108.6 Weight Pre (kg) 111.4 110.5 111.7 Weight Post (kg) 107.5 107.7 108 Dialytic Weight Loss (kg) -3.9 -2.8 -3.7 EDW Deviation (kg) -0.5 -0.3 -0.6 BP Sit Pre 173/66 138/54 162/57 BP Sit Post 121/52 145/65 129/63 UF Rate (mL/kg/hr) 9 6 8 Prescribed BFR 550 550 550 Average Delivered BFR 560 470 550 Prescribed Treatment Time 4:0 4:0 4:0 Actual Treatment Time 04:01 04:02 04:04 Last 3 Values 09/27/2019 08/23/2019 08/02/2019 Access Flow 1591 > 2000 1510 Treatment Medication Orders Medication Sig Start Date End Date Heparin Sodium (Porcine) 1,000 Units/mL Systemic 2000 units IVP Every Treatment 05/01/2019 04/29/2020 Heparin Sodium (Porcine) 1,000 Units/mL Systemic 1000 units IVP Every Treatment 05/01/2019 04/29/2020 SHOEMAKING CUTTER: Ernie Pompa MD LOCATION: [phone] SCHEDULE: M-W- 2nd Shift ACCESS: EDW: kg. DIALYZER: HD DURATION: NEEDLE SIZE: ANTICOAG: BATH: QB: ml/min QD: ml/min Subjective Tolerating dialysis well. 10/08: He feels well, but had minor fall when bending over, no injuries, has tray on his walker now so things don't fall. Continue to challenge EDW, pant size from 50 to 44! Feels better and better. 09/24: He had infiltration last week, dialyzed at [facility] on Sat and went well, access ok [...] murmur heard. Edema - 1+ leg edema. with chronic venous stasis changes Access - AVF [...] and no changes were made. BUN mg/dL 32 (09/18/19) 40 (08/21/19) 29 (07/24/19) 35 (07/03/19) 35 (06/19/19) UREA NITROGEN (MG/DL) IN SER/PLAS - POST DIALYSIS mg/dL 7 (09/18/19) 10 (08/21/19) 9 (07/24/19) 10 (07/03/19) 13 (06/19/19) URR % 78 (09/18/19) 75 (08/21/19) 69 (07/24/19) 71 (07/03/19) 63 (06/19/19) spKt/V Gotch 1.79 (09/18/19) 1.63 (08/21/19) 1.37 (07/24/19) 1.48 (07/03/19) 1.16 (06/19/19) eKdrt/V 1.56 (09/18/19) 1.42 (08/21/19) 1.2 (07/24/19) 1.29 (07/03/19) 1.02 (06/19/19) spKt/V (Daugirdas II) 1.7600 (09/18/19) 1.6000 (08/21/19) 1.3500 (07/24/19) 1.4400 (07/03/19) 1.1400 (06/19/19) HEMOGLOBIN (G/DL) IN BLOOD g/dL 11.8 (10/02/19) 12.2 (09/25/19) 11.5 (09/18/19) 11.6 (09/11/19) 11.1 (09/04/19) PLATELETS 1000/mcL 200 (09/18/19) 208 (08/21/19) 218 (07/24/19) 218 (06/19/19) 223 (05/22/19) IRON SATURATION % 34 (09/18/19) 24 (08/21/19) 20 (07/24/19) 19 (06/19/19) 21 (05/22/19) FERRITIN ng/mL 844 (09/18/19) 200 (07/29/19) 134 (06/19/19) 252 (05/29/19) 105 (05/01/19) ALBUMIN (G/DL) g/dL 3.8 (09/18/19) 3.2 (08/21/19) 3.2 (07/24/19) Sodium mEq/L 136 (09/18/19) 137 (08/21/19) 137 (07/24/19) POTASSIUM (MMOL/L) IN SER/PLAS mEq/L 4.5 (09/18/19) 3.8 (08/21/19) 4.8 (07/24/19) BICARBONATE (CO2) mEq/L 23 (09/18/19) 27 (08/21/19) 24 (07/24/19) 25 OH VITAMIN D ng/mL 62.4 (09/18/19) 44.4 (05/01/19) BUN/CREATININE (MASS RATIO) IN SER/PLAS 10.4 (09/18/19) 12.1 (08/21/19) 9.4 (07/24/19) Calcium mg/dL 10.3 (09/18/19) 9.7 (08/21/19) 10.0 (07/24/19) Calcium Phos Product 38 (09/18/19) 34 (08/21/19) 35 (07/24/19) CALCIUM (MG/DL) CORRECTED FOR ALBUMIN IN SER/PLAS mg/dL 10.5 (09/18/19) 10.3 (08/21/19) 10.6 (07/24/19) PHOSPHATE (MG/DL) IN SER/PLAS mg/dL 3.7 (09/18/19) 3.5 (08/21/19) 3.5 (07/24/19) IPTH pg/mL 167 (09/18/19) 164 (07/24/19) 199 (06/19/19) Vascular Access Assessment: Type of access: [id number] Surgeon - Lary GARDNER Access working well Impression and Plan Continue to challenge EDW, but now by 1 Kg per week as getting closer to EDW No other changes to prescription today Ernie Pompa MD [ Signed And locked electronically On 10/09/2019 at 12:55:21 PM ] Transcribed: Ernie Pompa ( 10/09/2019 ) documented in this encounter Plan of Treatment Not on filedocumented as of this encounter Visit Diagnoses Not on filedocumented in this encounter
--- OUTSIDE RECORDS SUMMARY | 2021-10-27 05:46 | XMS_ITS | Encounter Summary ---
:1945 Author Organization [facility] Address [address] [place] [address] Care Team Providers Name Role Phone Unavailable Primary Care Provider Unavailable Encounter Details Date Type Department Care Team Description 08/14/2019 Orders Only [facility] O f Ernie Guzmán MD [address] [place] [address] [place], [place] [phone] (Wo rk) Social History Tobacco Use Types Packs/Day Years Used Date Smoking Tobacco: Unknown Comments: Smoking History Info:Patient n ot screened Sex Assigned at Date Recorded Not on file documented as of this encounter Plan of Treatment Not on filedocumented as of this encounter Procedures Procedure Name Priority Date/Time Associated Diagnosis Comme nts HEMATOLOGY Routine 08/14/2019 Results for thi s procedure are in the resu lts section. documented in this encounter Results (ABNORMAL) HEMATOLOGY (08/14/2019) Analysis Performed At Patho logist Time Signature Hemoglobin 12.0 (L) 14.0 - APS SPECTRA 18.0 g/dL [facility] Hemoglobin x 3 36.0 (L) 42.0 - APS SPECTRA 54.0 % [facility] Specimen (Source) Anatomical Collection Method Collection Time Re ceived Time Location / / Volume Laterality 08/14/2019 08/15/2019 5:25 PM CDT Narrative APS SPECTRA [facility] - 08/16/2019 Unless otherwise specified, test(s) performed at: [facility], [address] [place] [address] TESTING SPECIALIST: Alec Payan M.D. For any questions, please call customer service at FREQUENCY:OTHER Resulting Agency Comment Specimen source: Blood Ernie Pompa MD LAB BLOOD ORDERABLES Performing Organization Address City/State/ZIP Code Phon e Number APS SPECTRA [facility] documented in this encounter Visit Diagnoses Not on filedocumented in this encounter
--- OUTSIDE RECORDS SUMMARY | 2021-10-27 05:46 | XMS_ITS | Encounter Summary ---
:1945 Author Organization [facility] Address [address] [place] [address] Care Team Providers Name Role Phone Unavailable Primary Care Provider Unavailable Encounter Details Date Type Department Care Team Description 10/02/2019 Orders Only [facility] f Ernie Guzmán MD [address] [place] [address] [place], [place] [phone] (Wo rk) Social History Tobacco Use Types Packs/Day Years Used Date Smoking Tobacco: Unknown Comments: Smoking History Info:Patient n ot screened Sex Assigned at Date Recorded Not on file documented as of this encounter Plan of Treatment Not on filedocumented as of this encounter Procedures Procedure Name Priority Date/Time Associated Diagnosis Comme nts HEMATOLOGY Routine 10/02/2019 Results for thi s procedure are in the resu lts section. documented in this encounter Results (ABNORMAL) HEMATOLOGY (10/02/2019) [facility] gist Method Time Signature Neutrophils 74.2 40.0 - [facility] 75.0 % [facility] Lymphocytes 11.3 (L) 19.0 - [facility] Relative 48.0 % [facility] Monocytes 9.7 3.0 - 10.0 [facility] % [facility] Eosinophils 1.3 0.0 - 7.0 [facility] Relative % [facility] Basophils 0.5 0.0 - 1.5 [facility] Relative % [facility] YASMIN 2.9 0.0 - 4.0 [facility] % [facility] Hemoglobin 11.8 (L) 14.0 - [facility] 18.0 g/dL [facility] Hemoglobin x 3 35.4 (L) 42.0 - [facility] 54.0 % [facility] Specimen (Source) Anatomical Collection Method Collection Time Re ceived Time Location / / Volume Laterality 10/02/2019 10/03/2019 7:47 PM CDT Narrative [facility] - 10/03/2019 Unless otherwise specified, test(s) performed at: [facility] [facility], [address] [place] [id number] ADVERTISING INTERN: Alec Payan M.D. For any questions, please call customer service at FREQUENCY:OTHER Resulting Agency Comment Specimen source: Blood Ernie Pompa MD LAB BLOOD ORDERABLES Performing Organization Address City/State/ZIP Code Phon e Number [facility] documented in this encounter Visit Diagnoses Not on filedocumented in this encounter
--- OUTSIDE RECORDS SUMMARY | 2021-10-27 05:46 | XMS_ITS | Encounter Summary ---
:1945 Author Organization [facility] Address [address] [place] [address] Care Team Providers Name Role Phone Unavailable Primary Care Provider Unavailable Encounter Details Date Type Department Care Team Description 06/26/2019 Treatment [facility] f Ernie Guzmán MD [address] [place] [address] [place] [employer], [place] [phone] (Wo rk) Social History Tobacco Use Types Packs/Day Years Used Date Smoking Tobacco: Unknown Comments: Smoking History Info:Patient n ot screened Sex Assigned at Date Recorded Not on file documented as of this encounter Miscellaneous Notes Dialysis Note - Ernie Pompa MD - 06/26/2019 12:47 PM CDT Date: Jun 26, 2019 Patient Name: Shaun Ocampo : 1945 Chart #: [id number] Sex: M This patient was personally seen for a complete visit as part of routine monthly dialysis care. A review of the dialysis treatment, blood pressure, estimated dry weight and recent lab values was made. These were discussed with the patient and staff as necessary. Treatment Data for 06/26/2019 started at:10:57 AM Dialyzer: 180NRe Optiflux Na: 138 mEq/L Bicarb: 28 mEq/L Dialysate: 3.0 K, 2.25 Ca, 1.0 Mg, 100 Dextrose (G3231) Dialysate/Machine Temp (prescribed): 37 C Dialysate/Machine Temp (actual): 37.6 C BFR (prescribed): 400 BFR (actual): 400 Prescribed time: 4:0 EDW: 128 kg Access Type: Active (In Use):AVFistula-Standard/Left Upper Arm Pre Dialysis Vitals (for 06/26/2019 10:48 AM ) Pre BP (sit): 169/78 Pre Wt: 129.6 kg Temp: 96 F Post Dialysis Vitals (for 06/24/2019 3:03 PM ) Post BP (sit): 140/83 Post Wt: 127.5 kg Current Dialysis Vitals (for 06/26/2019 12:36 PM ) BP (sit): 146/80 AP(-) / RAW JUICE WEIGHER: 248/209 Pulse: 79 Chairside data as of 06/26/2019 12:36 PM Last 3 Treatments 06/24/2019 06/21/2019 06/19/2019 EDW (kg) 128 128 129.3 Weight Pre (kg) 130.7 130.4 130.5 Weight Post (kg) 127.5 127.4 128 Dialytic Weight Loss (kg) -3.2 -3 -2.5 EDW Deviation (kg) -0.5 -0.6 -1.3 BP Sit Pre 146/73 163/69 148/69 BP Sit Post 140/83 155/69 144/69 UF Rate (mL/kg/hr) 6 6 5 Prescribed BFR 400 400 400 Average Delivered BFR 400 400 400 Prescribed Treatment Time 4:0 4:0 4:0 Actual Treatment Time 04:03 04:02 04:01 CUSTOMER CONTACT SALES ASSOCIATE: Ernie Pompa MD LOCATION: [place] [phone] SCHEDULE: -W- 2nd Shift EDW: kg. DIALYZER: HD DURATION: NEEDLE SIZE: ANTICOAG: BATH: QB: ml/min QD: ml/min Subjective Tolerating dialysis well. 06/25: This visit today was done virtually [...] renal dialysis V45.11 Z99.2 Exam Respiratory - appears comfortable breathing Cardiovascular - Regular rate. per RN Edema - 1+ leg edema. improving Access - AVF intact with needles in place Medication List Medication Sig Start Date albuterol [...] tablet Take 1 tablet once a day calcitriol 0.25 mcg capsule Take 1 capsule by mouth once a day cholecalciferol (vitamin D3) 50 [...] made. Treatment and Adequacy Assessment BUN mg/dL 35 (06/19/19) 28 (05/29/19) 30 (05/22/19) 29 (05/15/19) 68 (05/01/19) UREA NITROGEN (MG/DL) IN SER/PLAS - POST DIALYSIS mg/dL 13 (06/19/19) 10 (05/29/19) 13 (05/22/19) 11 (05/15/19) 3 (05/01/19) URR % 63 (06/19/19) 64 (05/29/19) 57 (05/22/19) 62 (05/15/19) 96 (05/01/19) spKt/V Gotch 1.16 (06/19/19) 1.22 (05/29/19) .97 (05/22/19) 1.08 (05/15/19) eKdrt/V 1.02 (06/19/19) 1.07 (05/29/19) .86 (05/22/19) .95 (05/15/19) spKt/V (Daugirdas II) 1.1400 (06/19/19) 1.1900 (05/29/19) 0.9500 (05/22/19) 1.0700 (05/15/19) Dialysis is not adequate. Achieves prescribed time - Yes Achieves prescribed frequency - Yes Advance needles now to 15g with increase in BFR to 15g and continue 180 dialyzer. Will re-assess kt/v with this. Vascular Access Assessment Type of access: Veqmpbh09/2019 Surgeon - Lary GARDNER Advanced needles to 16g on 05/23, advance to 15g now Anemia Assessment HEMOGLOBIN (G/DL) IN BLOOD g/dL 10.4 (06/19/19) 9.7 (06/12/19) 10.0 (06/05/19) 9.4 (05/29/19) 9.0 (05/22/19) PLATELETS 1000/mcL 218 (06/19/19) 223 (05/22/19) 104 (05/01/19) IRON SATURATION % 19 (06/19/19) 21 (05/22/19) 10 (05/01/19) FERRITIN ng/mL 134 (06/19/19) 252 (05/29/19) 105 (05/01/19) Hemoglobin is at goal. Iron Saturation is below goal. Ferritin is below goal. Will adjust NATALEE and intravenous iron per protocol. Nutritional and Metabolic Assessment ALBUMIN (G/DL) g/dL 3.4 (06/19/19) 3.3 (05/22/19) 3.4 (05/01/19) Sodium mEq/L 137 (06/19/19) 139 (05/22/19) 139 (05/01/19) POTASSIUM (MMOL/L) IN SER/PLAS mEq/L 4.4 (06/19/19) 3.8 (05/22/19) 4.5 (05/01/19) Bicarbonate mEq/L 22 (06/19/19) 26 (05/22/19) 26 (05/01/19) 25 OH VITAMIN D ng/mL 44.4 (05/01/19) Albumin is below goal. Encourage high-biological value protein intake. Potassium is at goal. Bicarbonate is at goal. Continue same bicarbonate in dialysate. Bone and Mineral Metabolism Assessment Calcium mg/dL 9.9 (06/19/19) 9.9 (05/22/19) 9.5 (05/01/19) CALCIUM (MG/DL) CORRECTED FOR ALBUMIN IN SER/PLAS mg/dL 10.4 (06/19/19) 10.5 (05/22/19) 10.0 (05/01/19) PHOSPHATE (MG/DL) IN SER/PLAS mg/dL 3.9 (06/19/19) 3.4 (05/22/19) 4.4 (05/01/19) CALCIUM PHOSPHORUS PRODUCT, COR 41 (06/19/19) 36 (05/22/19) 44 (05/01/19) IPTH pg/mL 199 (06/19/19) 351 (05/01/19) Corrected Calcium is at goal. Phosphorous is at goal. Intact PTH is at goal. Blacksmith Helper will adjust binders and vitamin D per protocol and continue to provide dietary education. Cardiovascular Assessment Blood pressures reviewed and are acceptable. Intradialytic weight gains are appropriate. Estimated dry weight is appropriate. Challenge EDW as BP tolerates, set new EDW to what he comes off at (discussed with RN) Transplant Status: Patient is not a candidate. Weight, co-morbidities Resuscitation Status Tolerating dialysis well As above, advancing needles to 15g and increasing BFR Continue to challenge EDW, still has edema Ernie Pompa MD [ Signed And locked electronically On 06/26/2019 at 12:50:15 PM ] Transcribed: Ernie Pompa ( 06/26/2019 ) documented in this encounter Plan of Treatment Not on filedocumented as of this encounter Visit Diagnoses Not on filedocumented in this encounter
--- OUTSIDE RECORDS SUMMARY | 2021-10-27 05:46 | XMS_ITS | Encounter Summary ---
:1945 Author Organization [facility] Address [address] [place] [address] Care Team Providers Name Role Phone Unavailable Primary Care Provider Unavailable Encounter Details Date Type Department Care Team Description 05/15/2019 Treatment [facility] O Ernie Gómez MD [address] [place] [address] [place], [place] [phone] (Wo rk) Social History Tobacco Use Types Packs/Day Years Used Date Smoking Tobacco: Unknown Comments: Smoking History Info:Patient n ot screened Sex Assigned at Date Recorded Not on file documented as of this encounter Miscellaneous Notes Dialysis Note - Ernie Pompa MD - 05/15/2019 12:58 PM CST Date: May 15, 2019 Patient Name: Shaun Ocampo : 1945 Chart #: [id number] Sex: M This patient was personally seen for a complete visit as part of routine monthly dialysis care. A review of the dialysis treatment, blood pressure, estimated dry weight and recent lab values was made. These were discussed with the patient and staff as necessary. Treatment Data for 05/15/2019 started at:11:26 AM Dialyzer: 180NRe Optiflux Na: 138 mEq/L Bicarb: 30 mEq/L Dialysate: 2.0 K, 2.25 Ca, 1.0 Mg, 100 Dextrose (G2231) Dialysate/Machine Temp (prescribed): 37 C Dialysate/Machine Temp (actual): 37 C BFR (prescribed): 300 BFR (actual): 300 Prescribed time: 4:0 EDW: 132.5 kg Access Type: Pre Dialysis Vitals (for 05/15/2019 11:11 AM ) Pre BP (sit): 133/70 Pre Wt: 133.5 kg Temp: 97.8 F Post Dialysis Vitals (for 05/13/2019 3:06 PM ) Post BP (sit): 157/83 Post Wt: 132.6 kg Current Dialysis Vitals (for 05/15/2019 11:37 AM ) BP (sit): 148/53 AP(-) / APPOINTMENT SCHEDULER: 216/194 Pulse: 62 Chairside data as of 05/15/2019 11:37 AM Last 3 Treatments 05/13/2019 05/10/2019 05/08/2019 EDW (kg) 132.5 132.5 132.5 Weight Pre (kg) 134.3 133.5 132.7 Weight Post (kg) 132.6 132.6 132.8 Dialytic Weight Loss (kg) -1.7 -0.9 0.1 EDW Deviation (kg) 0.1 0.1 0.3 BP Sit Pre 149/70 134/66 163/78 BP Sit Post 157/83 171/77 UF Rate (mL/kg/hr) 3 2 Prescribed BFR 250 250 250 Average Delivered BFR 300 210 Prescribed Treatment Time 4:0 4:0 4:0 Actual Treatment Time 04:01 04:03 BLOCK MASON: Ernie Pompa MD LOCATION: [phone] SCHEDULE: -- 2nd Shift EDW: kg. DIALYZER: HD DURATION: NEEDLE SIZE: ANTICOAG: BATH: QB: ml/min QD: ml/min Subjective Tolerating dialysis well. 05/15: He just started dialysis 2 weeks [...] Regular rhythm. Edema - 1+ leg edema. Access - AVF with bruising but good t/b Medication List Medication Sig Start Date albuterol [...] tablet Take 1 tablet once a day [place] Saline (sodium chloride) 0.65% drops calcitriol 0.25 mcg capsule Take 1 capsule by mouth once a day cholecalciferol (vitamin D3) 2,000 unit tablet,chewable Take 1 tablet by mouth once a day ferrous sulfate 325 mg (65 mg iron) tablet,delayed release (DR/EC) Take 1 mg by mouth once a day ipratropium-albuterol 0.5 mg-3 mg(2.5 mg base)/3 mL solution for nebulization Inhale 3 ml as directed every six hours as needed Allergy List Allergen Reaction Reaction Severity Onset Date lisinopril Cough Medications reviewed and no changes were made. Treatment and Adequacy Assessment BUN mg/dL 68 (05/01/19) UREA NITROGEN (MG/DL) IN SER/PLAS - POST DIALYSIS mg/dL 3 (05/01/19) URR % 96 (05/01/19) Dialysis is not adequate. Achieves prescribed time - Yes Achieves prescribed frequency - Yes Advance needles when ok from vascular (couple weeks away) Vascular Access Assessment Type of access: Facjpio13/2019 Lary GARDNER Anemia Assessment HEMOGLOBIN (G/DL) IN BLOOD g/dL 8.5 (05/10/19) 8.1 (05/01/19) PLATELETS 1000/mcL 104 (05/01/19) IRON SATURATION % 10 (05/01/19) FERRITIN ng/mL 105 (05/01/19) Hemoglobin is below goal. Iron Saturation is below goal. Ferritin is below goal. Will adjust NATALEE and intravenous iron per protocol. Nutritional and Metabolic Assessment ALBUMIN (G/DL) g/dL 3.4 (05/01/19) Sodium mEq/L 139 (05/01/19) POTASSIUM (MMOL/L) IN SER/PLAS mEq/L 4.5 (05/01/19) Bicarbonate mEq/L 26 (05/01/19) 25 OH VITAMIN D ng/mL 44.4 (05/01/19) Albumin is below goal. Encourage high-biological value protein intake. Potassium is at goal. Bicarbonate is at goal. Continue same bicarbonate in dialysate. Bone and Mineral Metabolism Assessment Calcium mg/dL 9.5 (05/01/19) CALCIUM (MG/DL) CORRECTED FOR ALBUMIN IN SER/PLAS mg/dL 10.0 (05/01/19) PHOSPHATE (MG/DL) IN SER/PLAS mg/dL 4.4 (05/01/19) CALCIUM PHOSPHORUS PRODUCT, COR 44 (05/01/19) IPTH pg/mL 351 (05/01/19) Corrected Calcium is at goal. Phosphorous is at goal. Intact PTH is at goal. Retail Special Event Associate will adjust binders and vitamin D per protocol and continue to provide dietary education. Cardiovascular Assessment Blood pressures reviewed and are acceptable. Intradialytic weight gains are appropriate. Estimated dry weight is appropriate. Challenge EDW as BP tolerates Transplant Status: Patient is not a candidate. Weight, co-morbidities Resuscitation Status Tolerating initiation of dialysis well Challenge EDW slowly Stop oral iron, start IV iron Ernie Pomap MD [ Signed And locked electronically On 05/15/2019 at 01:01:17 PM ] Transcribed: Ernie Pompa ( 05/15/2019 ) Dialysis Note - Ernie Pompa MD - 05/15/2019 11:53 AM CST Date: May 15, 2019 Patient Name: Shaun Ocampo : 1945 Chart #: [id number] Sex: M Patient Type: ESRD Modality: Hemodialysis Supply Chain Procurement Manager: Ernie Pompa MD [phone] Schedule: -W- 2nd Shift Initial Access Date Regular Chronic Dialysis Began: 05/01/2019Initial Modality: Hemodialysis Initial Access used on first patient dialysis: AVF Current Access Access used for current outpatient dialysis: AVF Ernie Pompa MD [ Signed And locked electronically On 05/15/2019 at 10:53:07 AM ] Transcribed: Ernie Pompa MD ( 05/15/2019 ) documented in this encounter Plan of Treatment Not on filedocumented as of this encounter Visit Diagnoses Not on filedocumented in this encounter
--- OUTSIDE RECORDS SUMMARY | 2021-10-27 05:46 | XMS_ITS | Encounter Summary ---
:1945 Author Organization [facility] Address [address] [place] [address] Care Team Providers Name Role Phone Unavailable Primary Care Provider Unavailable Encounter Details Date Type Department Care Team Description 07/31/2019 Orders Only [facility] O f Ernie Guzmán MD [address] [place] [address] [place], [place] [phone] (Wo rk) Social History Tobacco Use Types Packs/Day Years Used Date Smoking Tobacco: Unknown Comments: Smoking History Info:Patient n ot screened Sex Assigned at Date Recorded Not on file documented as of this encounter Plan of Treatment Not on filedocumented as of this encounter Procedures Procedure Name Priority Date/Time Associated Diagnosis Comme nts HEMATOLOGY Routine 07/31/2019 Results for thi s procedure are in the resu lts section. documented in this encounter Results (ABNORMAL) HEMATOLOGY (07/31/2019) Analysis Performed At Patho logist Time Signature Hemoglobin 12.0 (L) 14.0 - [facility] 18.0 g/dL [facility] Hemoglobin x 3 36.0 (L) 42.0 - [facility] 54.0 % [facility] Specimen (Source) Anatomical Collection Method Collection Time Re ceived Time Location / / Volume Laterality 07/31/2019 08/01/2019 3:13 PM CDT Narrative [facility] - 08/01/2019 Unless otherwise specified, test(s) performed at: [facility], [address] [place] [id number] [address] MERCHANDISE PLANNER: Alec Payan M.D. For any questions, please call customer service at FREQUENCY:OTHER Resulting Agency Comment Specimen source: Blood Ernie Pompa MD LAB BLOOD ORDERABLES Performing Organization Address City/State/ZIP Code Phon e Number [facility] documented in this encounter Visit Diagnoses Not on filedocumented in this encounter
--- OUTSIDE RECORDS SUMMARY | 2021-10-27 05:46 | XMS_ITS | Encounter Summary ---
:1945 Author Organization [facility] Address [address] [place] [address] Care Team Providers Name Role Phone Unavailable Primary Care Provider Unavailable Encounter Details Date Type Department Care Team Description 06/05/2019 Treatment [facility] f Ernie Guzmán MD [address] [place] [address] [place], [place] [phone] (Wo rk) Social History Tobacco Use Types Packs/Day Years Used Date Smoking Tobacco: Unknown Comments: Smoking History Info:Patient n ot screened Sex Assigned at Date Recorded Not on file documented as of this encounter Miscellaneous Notes Dialysis Note - Ernie Pompa MD - 06/05/2019 5:14 PM CDT Date: Jun 05, 2019 Patient Name: Shaun Ocampo : 1945 Chart #: [id number] Sex: M This patient was personally seen for a basic visit as part of routine weekly dialysis care. A reviewof the dialysis treatment, blood pressure, estimated dry weight and recent lab values was made. These were discussed with the patient and staff as necessary. JAVA DEVELOPMENT MANAGER: Ernie Pompa MD LOCATION: [phone] SCHEDULE: M-W-F 2nd Shift ACCESS: EDW: kg. DIALYZER: HD DURATION: NEEDLE SIZE: ANTICOAG: BATH: QB: ml/min QD: ml/min Subjective Tolerating dialysis well. 06/04: Tolerating HD well, advancing needles, adequacy improving as we do this, challenging EDW, and he feels overall well. 3/: He continues to feel better and better, [...] Regular rhythm. Edema - 1+ leg edema. with chronic venous stasis changes Access - AVF with excellent t/b Medication List Medication Sig Start Date [...] 1/2 tablet by mouth once a day Allergy List Allergen Reaction Reaction Severity Onset Date lisinopril Cough Medications reviewed and no changes were made. BUN mg/dL 28 (05/29/19) 30 (05/22/19) 29 (05/15/19) 68 (05/01/19) UREA NITROGEN (MG/DL) IN SER/PLAS - POST DIALYSIS mg/dL 10 (05/29/19) 13 (05/22/19) 11 (05/15/19) 3 (05/01/19) URR % 64 (05/29/19) 57 (05/22/19) 62 (05/15/19) 96 (05/01/19) spKt/V Gotch 1.22 (05/29/19) .97 (05/22/19) 1.08 (05/15/19) eKdrt/V 1.07 (05/29/19) .86 (05/22/19) .95 (05/15/19) spKt/V (Daugirdas II) 1.1900 (05/29/19) 0.9500 (05/22/19) 1.0700 (05/15/19) HEMOGLOBIN (G/DL) IN BLOOD g/dL 9.4 (05/29/19) 9.0 (05/22/19) 8.2 (05/15/19) 8.5 (05/10/19) 8.1 (05/01/19) PLATELETS 1000/mcL 223 (05/22/19) 104 (05/01/19) IRON SATURATION % 21 (05/22/19) 10 (05/01/19) FERRITIN ng/mL 252 (05/29/19) 105 (05/01/19) ALBUMIN (G/DL) g/dL 3.3 (05/22/19) 3.4 (05/01/19) Sodium mEq/L 139 (05/22/19) 139 (05/01/19) POTASSIUM (MMOL/L) IN SER/PLAS mEq/L 3.8 (05/22/19) 4.5 (05/01/19) Bicarbonate mEq/L 26 (05/22/19) 26 (05/01/19) 25 OH VITAMIN D ng/mL 44.4 (05/01/19) BUN/CREATININE (MASS RATIO) IN SER/PLAS 9.1 (05/22/19) 20.0 (05/01/19) Calcium mg/dL 9.9 (05/22/19) 9.5 (05/01/19) Calcium Phos Product 34 (05/22/19) 42 (05/01/19) CALCIUM (MG/DL) CORRECTED FOR ALBUMIN IN SER/PLAS mg/dL 10.5 (05/22/19) 10.0 (05/01/19) PHOSPHATE (MG/DL) IN SER/PLAS mg/dL 3.4 (05/22/19) 4.4 (05/01/19) IPTH pg/mL 351 (05/01/19) Vascular Access Assessment: Type of access: Fmbdndr27/2019 Surgeon - Lary KUMARW Advanced needles to 16g on 05/23, soon will be 15g Impression and Plan Stable dialysis, continue same prescription but increase needle size as able and then BFR to achieveadequate dialysis and will continue to challenge EDW as well as he has ongoing edema Ernie Pompa MD [ Signed And locked electronically On 06/05/2019 at 05:15:37 PM ] Transcribed: Ernie Pompa ( 06/05/2019 ) documented in this encounter Plan of Treatment Not on filedocumented as of this encounter Visit Diagnoses Not on filedocumented in this encounter
--- OUTSIDE RECORDS SUMMARY | 2021-10-27 05:46 | XMS_ITS | Encounter Summary ---
:1945 Author Organization [facility] Address [address] [place] [address] Care Team Providers Name Role Phone Unavailable Primary Care Provider Unavailable Encounter Details Date Type Department Care Team Description 06/19/2019 Orders Only [facility] O f Ernie Guzmán MD [phone] [place] [address] [place], [place] [phone] (Wo rk) Social History Tobacco Use Types Packs/Day Years Used Date Smoking Tobacco: Unknown Comments: Smoking History Info:Patient n ot screened Sex Assigned at Date Recorded Not on file documented as of this encounter Plan of Treatment Not on filedocumented as of this encounter Procedures Procedure Name Priority Date/Time Associated Diagnosis Comme nts HD KINETICS Routine 06/19/2019 Results for thi s procedure are i n the results section . POST CHEMISTRY Routine 06/19/2019 Results for t his procedure are i n the results section . HEMATOLOGY Routine 06/19/2019 Results for thi s procedure are i n the results section . CHEMISTRY Routine 06/19/2019 Results for thi s procedure are i n the results section . CHEMISTRY Routine 06/19/2019 Results for thi s procedure are i n the results section . SPECTRA [facility] LAB RESULTS Routine 06/19/2019 Resul ts for this procedure are i n the results section . documented in this encounter Results Spectra [facility] Lab Results (06/19/2019) P athologist Signature eKt/V 0.99 [facility] ([place]) spKt/V Gotch 1.16 [facility] nPCR_HD 0.60 [facility] eNPCR 0.56 [facility] PCR 54.37 [facility] spKt/V 1.14 K[facility]ERON (Daugirdas II) eKt/V Gotch 1.02 [facility] eKdrt/V 1.02 [facility] Specimen (Source) Anatomical Location Collection Method / Collectio n Time Received Time / Laterality Volume 06/19/2019 06/19/2019 [place] Ordering Provider LAB BLOOD ORDERABLES Performing Organization Address City/State/ZIP Code Phon e Number [facility] (ABNORMAL) HD KINETICS (06/19/2019) P athologist Signature % Urea 63 (L) 65 - 80 % APS SPECTRA Reduction [facility] Specimen (Source) Anatomical Collection Method Collection Time Re ceived Time Location / / Volume Laterality 06/19/2019 06/20/2019 8:15 PM CDT Narrative APS SPECTRA [facility] - 06/21/2019 Unless otherwise specified, test(s) performed at: [facility], [address] [place] [address] ELECTRIC WELDER: lAec Payan M.D. For any questions, please call customer service at FREQUENCY:MONTHLY Resulting Agency Comment Specimen source: Serum Ernie Pompa MD LAB BLOOD ORDERABLES Performing Organization Address City/State/ZIP Code Phon e Number APS SPECTRA [facility] (ABNORMAL) Spectrae Chemistry (06/19/2019) Patholo gist Method Time Signature Ferritin 134 22 - 322 A[facility]RA ng/mL [facility] BUN 35 (H) 6 - 19 APS [facility]RA mg/dL [facility] Creatinine 3.11 (H) 0.60 - APS SPECTRA 1.30 mg/dL [facility] BUN/Creatinine 11.3 10.0 - APS SPECTRA Ratio 20.0 [facility] Sodium 137 136 - 145 APS [facility]PECTRA mEq/L [facility] Potassium 4.4 3.5 - 5.1 APS SPECTRA mEq/L [facility] Chloride 103 96 - 108 APS SPECTRA mEq/L [facility] Bicarbonate 22 22 - 29 APS SPECTRA (CO2) mEq/L [facility] Calcium 9.9 8.4 - 10.2 APS SPECTRA mg/dL [facility] Corrected 10.4 (H) 8.4 - 10.2 APS SPECTRA Calcium mg/dL [facility] Comment: Corrected Calcium is not equivalent to m easured Ionized Calcium. Phosphorus 3.9 2.6 - 4.5 mg/dL APS SPECTRA [facility] Calcium Phosphorus Product 39 0 - 54 APS SPECTRA [facility] Calcium Phosporus Product, Cor 41 0 - 54 APS SPECTRA [facility] Alkaline Phosphatase 119 40 - 129 U/L APS SP ECTRA [facility] Total Protein 6.2 6.0 - 8.5 g/dL APS SPECTRA [facility] Albumin 3.4 (L) 3.5 - 5.2 g/dL APS SPECTRA [facility] [place] Globulin, Total 2.8 2.0 - 4.0 g/dL APS SPECT RA [facility] A/G Ratio 1.2 1.0 - 2.0 APS SPECTRA [facility] Magnesium 2.0 1.6 - 2.6 mg/dL APS SPECTRA [place] [facility] Iron 46 45 - 160 mcg/dL APS SPECTRA [place] [facility] UIBC 197 155 - 355 mcg/dL APS SPECTRA [facility] TIBC 243 185 - 515 mcg/dL APS SPECTRA [facility] Iron Saturation (TSat) 19 (L) 20 - 55 % APS SPE CTRA [facility] Specimen (Source) Anatomical Collection Method Collection Time Re ceived Time Location / / Volume Laterality 06/19/2019 06/20/2019 8:14 PM CDT Narrative APS SPECTRA [facility] - 06/21/2019 Unless otherwise specified, test(s) performed at: [facility], [address] [place] [address] ELECTRIC WELDER: Alec Payan M.D. For any questions, please call customer service at FREQUENCY:MONTHLY Resulting Agency Comment Specimen source: Serum Ernie Pompa MD LAB BLOOD ORDERABLES Performing Organization Address [facility] Phon e Number APS SPECTRA [facility] (ABNORMAL) Spectrae Chemistry (06/19/2019) P athologist Signature PTH 199 (H) 16 - 80 APS SPECTRA pg/mL [facility] Specimen (Source) Anatomical Collection Method Collection Time Re ceived Time Location / / Volume Laterality 06/19/2019 06/20/2019 3:50 PM CDT Resulting Agency Comment Specimen source: Plasma Ernie Pompa MD LAB BLOOD ORDERABLES Performing Organization Address City/[facility] Code Phon e Number APS SPECTRA [facility] (ABNORMAL) HEMATOLOGY (06/19/2019) Patholo gist Method Time Signature WBC 6.99 4.80 - APS SPECTRA 10.80 [facility] 1000/mcL RBC 3.36 (L) 4.70 - APS SPECTRA 6.10 [facility] mill/mcL Hemoglobin 10.4 (L) 14.0 - APS SPECTRA 18.0 g/dL [facility] Hemoglobin x 3 31.2 (L) 42.0 - APS SPECTRA 54.0 % [facility] Hematocrit 33.7 (L) 42.0 - APS SPECTRA 52.0 % [facility] MCV 100 80 - 100 APS SPECTRA fl [facility] MCH 30.9 27.0 - APS SPECTRA 31.0 pg [facility] MCHC 30.8 30.0 - APS SPECTRA 36.0 g/dL [facility] RDW 15.0 (H) 11.5 - APS SPECTRA 14.5 % [facility] Platelets 218 130 - 400 APS SPECTRA 1000/mcL [facility] Reticulocyte 29.8 25.4 - APS SPECTRA Hemoglobin 31.8 pg [facility] Specimen (Source) Anatomical Collection Method Collection Time Re ceived Time Location / / Volume Laterality 06/19/2019 06/20/2019 3:50 PM CDT Narrative APS SPECTRA [facility] - 06/21/2019 Unless otherwise specified, test(s) performed at: [facility], [address] [place] [address] ELECTRIC WELDER: Alec Payan M.D. For any questions, please call customer service at FREQUENCY:MONTHLY Resulting Agency Comment Specimen source: Blood Ernie Pompa MD LAB BLOOD ORDERABLES Performing Organization Address City/[facility] Phon e Number APS SPECTRA [facility] POST CHEMISTRY (06/19/2019) P athologist Signature BUN Post 13 6 - 19 APS SPECTRA Dialysis mg/dL [facility] Specimen (Source) Anatomical Collection Method Collection Time Re ceived Time Location / / Volume Laterality 06/19/2019 06/20/2019 5:07 PM CDT Narrative APS SPECTRA [facility] - 06/20/2019 Unless otherwise specified, test(s) performed at: [facility], [address] [place] [address] ELECTRIC WELDER: Alec Payan M.D. For any questions, please call customer service at FREQUENCY:MONTHLY Resulting Agency Comment Specimen source: Plasma Ernie Pompa MD LAB BLOOD ORDERABLES Performing Organization Address City/[facility] Phon e Number APS SPECTRA [facility] documented in this encounter Visit Diagnoses Not on filedocumented in this encounter
--- OUTSIDE RECORDS SUMMARY | 2021-10-27 05:46 | XMS_ITS | Encounter Summary ---
:1945 Author Organization [facility] Address [address] [place] [address] Care Team Providers Name Role Phone Unavailable Primary Care Provider Unavailable Encounter Details Date Type Department Care Team Description 08/07/2019 Orders Only [facility] O f Ernie Guzmán MD [phone] [place] [address] [place], [place] [phone] (Wo rk) Social History Tobacco Use Types Packs/Day Years Used Date Smoking Tobacco: Unknown Comments: Smoking History Info:Patient n ot screened Sex Assigned at Date Recorded Not on file documented as of this encounter Plan of Treatment Not on filedocumented as of this encounter Procedures Procedure Name Priority Date/Time Associated Diagnosis Comme nts HEMATOLOGY Routine 08/07/2019 Results for thi s procedure are in the resu lts section. documented in this encounter Results (ABNORMAL) HEMATOLOGY (08/07/2019) Analysis Performed At Patho logist Time Signature Hemoglobin 12.0 (L) 14.0 - APS SPECTRA 18.0 g/dL [facility] Hemoglobin x 3 36.0 (L) 42.0 - APS SPECTRA 54.0 % [facility] Specimen (Source) Anatomical Collection Method Collection Time Re ceived Time Location / / Volume Laterality 08/07/2019 08/08/2019 1:23 PM CDT Narrative APS SPECTRA [facility] - 08/08/2019 Unless otherwise specified, test(s) performed at: [facility], [address] [place] [id number] PLASTIC BUBBLE PACKER: Alec Payan M.D. For any questions, please call customer service at FREQUENCY:OTHER Resulting Agency Comment Specimen source: Blood Ernie Pompa MD LAB BLOOD ORDERABLES Performing Organization Address City/State/ZIP Code Phon e Number APS SPECTRA [facility] documented in this encounter Visit Diagnoses Not on filedocumented in this encounter
--- OUTSIDE RECORDS SUMMARY | 2021-10-27 05:46 | XMS_ITS | Encounter Summary ---
:1945 Author Organization [facility] Address [address] [place] [address] Care Team Providers Name Role Phone Unavailable Primary Care Provider Unavailable Encounter Details Date Type Department Care Team Description 09/18/2019 Orders Only [facility] O f Ernie Guzmán MD [phone] [place] [address] [place], [place] [phone] (Wo rk) Social History Tobacco Use Types Packs/Day Years Used Date Smoking Tobacco: Unknown Comments: Smoking History Info:Patient n ot screened Sex Assigned at Date Recorded Not on file documented as of this encounter Plan of Treatment Not on filedocumented as of this encounter Procedures Procedure Name Priority Date/Time Associated Diagnosis Comme nts HD KINETICS Routine 09/18/2019 Results for thi s procedure are i n the results section . SPECIAL CHEMISTRY Routine 09/18/2019 Results fo r this procedure are i n the results section . POST CHEMISTRY Routine 09/18/2019 Results for t his procedure are i n the results section . IMMUNO CHEMISTRY Routine 09/18/2019 Results for this procedure are i n the results section . HEMATOLOGY Routine 09/18/2019 Results for thi s procedure are i n the results section . CHEMISTRY Routine 09/18/2019 Results for thi s procedure are i n the results section . CHEMISTRY Routine 09/18/2019 Results for thi s procedure are i n the results section . SPECTRA [facility] LAB RESULTS Routine 09/18/2019 Resul ts for this procedure are i n the results section . documented in this encounter Results Spectra [facility] Lab Results (09/18/2019) P athologist Signature eKt/V 1.53 [facility] ([place]) spKt/V Gotch 1.79 [facility] eNPCR 0.64 [facility] eKdrt/V 1.56 [facility] PCR 57.74 [facility] nPCR_HD 0.68 [facility] spKt/V 1.76 [facility] (Daugirdas II) eKt/V Gotch 1.56 [facility] Specimen (Source) Anatomical Location Collection Method / Collectio n Time Received Time / Laterality Volume 09/18/2019 09/18/2019 [place] Ordering Provider LAB BLOOD ORDERABLES Performing Organization Address City/State/ZIP Code Phon e Number [facility] (ABNORMAL) Spectrae Chemistry (09/18/2019) P athologist Signature PTH 167 (H) 16 - 80 APS SPECTRA pg/mL [facility] Specimen (Source) Anatomical Collection Method Collection Time Re ceived Time Location / / Volume Laterality 09/18/2019 09/19/2019 6:54 PM CDT Narrative APS SPECTRA [facility] - 09/20/2019 Unless otherwise specified, test(s) performed at: [facility], [address] [place] [address] CHEMIST PROTEINS: Alec Payan M.D. For any questions, please call customer service at FREQUENCY:MONTHLY Resulting Agency Comment Specimen source: Plasma Ernie Pompa MD LAB BLOOD ORDERABLES Performing Organization Address City/[facility]/ZIP Code Phon e Number APS SPECTRA [facility] HD KINETICS (09/18/2019) P athologist Signature % Urea 78 65 - 80 % APS SPECTRA Reduction [facility] Specimen (Source) Anatomical Collection Method Collection Time Re ceived Time Location / / Volume Laterality 09/18/2019 09/19/2019 7:11 PM CDT Resulting Agency Comment Specimen source: Plasma Ernie Pompa MD LAB BLOOD ORDERABLES Performing Organization Address City/State/ZIP Code Phon e Number APS SPECTRA [facility] POST CHEMISTRY (09/18/2019) P athologist Signature BUN Post 7 6 - 19 APS SPECTRA Dialysis mg/dL [facility] Specimen (Source) Anatomical Collection Method Collection Time Re ceived Time Location / / Volume Laterality 09/18/2019 09/19/2019 7:11 PM CDT Narrative APS SPECTRA [facility] - 09/19/2019 Unless otherwise specified, test(s) performed at: [facility], [address] [place], [place] [id number] CHEMIST PROTEINS: Alec Payan M.D. For any questions, please call customer service at FREQUENCY:MONTHLY Resulting Agency Comment Specimen source: Plasma Ernie Pompa MD LAB BLOOD ORDERABLES Performing Organization Address City/[facility]/ZIP Code Phon e Number APS SPECTRA [facility] IMMUNO CHEMISTRY (09/18/2019) athologist Signature Hep B Surface Negative Negative APS SPECTRA Ag [facility] Specimen (Source) Anatomical Collection Method Collection Time Re ceived Time Location / / Volume Laterality 09/18/2019 09/19/2019 2:37 PM CDT Resulting Agency Comment Specimen source: Serum Ernie Pompa MD LAB BLOOD ORDERABLES Performing Organization Address [facility] Code Phon e Number APS SPECTRA [facility] SPECIAL CHEMISTRY (09/18/2019) P athologist Signature Vitamin D, 62.4 30.0 - APS SPECTRA 25-OH, Total 100.0 [facility] ng/mL Comment: Vitamin D Status Classification: Deficiency ? <10.0 ng/mL Insufficiency ?10.0-30.0 ng/mL Sufficiency ?30.0-100.0 ng/mL Toxicity ? >100.0 ng/mL Specimen (Source) Anatomical Collection Method Collection Time Re ceived Time Location / / Volume Laterality 09/18/2019 09/19/2019 2:37 PM CDT Resulting Agency Comment Specimen source: Serum Ernie Pompa MD LAB BLOOD BANK TEST ORDERABL ES Performing Organization Address City/[facility]/ZIP Code Phon e Number APS SPECTRA [facility] (ABNORMAL) Spectrae Chemistry (09/18/2019) P athologist Signature BUN 32 (H) 6 - 19 APS SPECTRA mg/dL [facility] Creatinine 3.09 (H) 0.60 - 1.30 APS SPECTRA mg/dL [facility] Comment: Custom Exception BUN/Creatinine Ratio 10.4 10.0 - 20.0 APS SPE CTRA [facility] Sodium 136 136 - 145 mEq/L APS SPECTRA [place] [facility] Potassium 4.5 3.5 - 5.1 mEq/L APS SPECTRA [place] [facility] Chloride 104 96 - 108 mEq/L APS SPECTRA [facility] [place] Bicarbonate (CO2) 23 22 - 29 mEq/L APS SPEC TRA [facility] Calcium 10.3 (H) 8.4 - 10.2 mg/dL APS SPECTRA K [facility] Comment: Custom Exception Corrected Calcium 10.5 (H) 8.4 - 10.2 mg/dL APS S PECTRA [facility] Comment: Corrected Calcium is not equivalent to m easured Ionized Calcium. Phosphorus 3.7 2.6 - 4.5 mg/dL APS SPECTRA [facility] Calcium Phosphorus Product 38 0 - 54 APS SPECTRA [facility] Calcium Phosporus Product, Cor 39 0 - 54 APS SPECTRA [facility] Alkaline Phosphatase 126 40 - 129 U/L APS SP ECTRA [facility] Total Protein 6.8 6.0 - 8.5 g/dL APS SPECTRA [facility] Albumin 3.8 3.5 - 5.2 g/dL APS SPECTRA [facility] [place] Globulin, Total 3.0 2.0 - 4.0 g/dL APS SPECT RA [facility] A/G Ratio 1.3 1.0 - 2.0 APS SPECTRA [facility] Magnesium 1.9 1.6 - 2.6 mg/dL APS SPECTRA [place] [facility] Ferritin 844 (H) 22 - 322 ng/mL APS SPECTRA [facility] [place] Iron 85 45 - 160 mcg/dL APS SPECTRA [facility] UIBC 165 155 - 355 mcg/dL APS SPECTRA [facility] TIBC 250 185 - 515 mcg/dL APS SPECTRA [facility] Iron Saturation (TSat) 34 20 - 55 % APS SPE CTRA [facility] Specimen (Source) Anatomical Collection Method Collection Time Re ceived Time Location / / Volume Laterality 09/18/2019 09/19/2019 2:37 PM CDT Narrative APS SPECTRA [facility] - 09/19/2019 Unless otherwise specified, test(s) performed at: [facility], [address] [place] [address] CHEMIST PROTEINS: Alec Payan M.D. For any questions, please call customer service at FREQUENCY:MONTHLY Resulting Agency Comment Specimen source: Serum Ernie Pompa MD LAB BLOOD ORDERABLES Performing Organization Address City/State/ZIP Code Phon e Number APS SPECTRA [facility] (ABNORMAL) HEMATOLOGY (09/18/2019) [facility] gist Method Time Signature WBC 5.19 4.80 - APS SPECTRA 10.80 [facility] 1000/mcL RBC 3.70 (L) 4.70 - APS SPECTRA 6.10 [facility] mill/mcL Hemoglobin 11.5 (L) 14.0 - APS SPECTRA 18.0 g/dL [facility] Hemoglobin x 3 34.5 (L) 42.0 - APS SPECTRA 54.0 % [facility] Hematocrit 35.4 (L) 42.0 - APS SPECTRA 52.0 % [facility] MCV 96 80 - 100 APS SPECTRA fl [facility] MCH 31.0 27.0 - APS SPECTRA 31.0 pg [facility] MCHC 32.3 30.0 - APS SPECTRA 36.0 g/dL [facility] RDW 17.2 (H) 11.5 - APS SPECTRA 14.5 % [facility] Neutrophils 77.1 (H) 40.0 - APS SPECTRA 75.0 % [facility] Lymphocytes 9.7 (L) 19.0 - APS SPECTRA Relative 48.0 % [facility] Monocytes 7.6 3.0 - 10.0 APS SPECTRA % [facility] Eosinophils 1.9 0.0 - 7.0 APS SPECTRA Relative % [facility] Basophils 0.7 0.0 - 1.5 APS SPECTRA Relative % [facility] YASMIN 3.0 0.0 - 4.0 APS SPECTRA % [facility] Platelets 200 130 - 400 APS SPECTRA 1000/mcL [facility] Specimen (Source) Anatomical Collection Method Collection Time Re ceived Time Location / / Volume Laterality 09/18/2019 09/19/2019 6:54 PM CDT Narrative APS SPECTRA [facility] - 09/19/2019 Unless otherwise specified, test(s) performed at: [facility], [address] [place] [address] CHEMIST PROTEINS: Alec Payan M.D. For any questions, please call customer service at FREQUENCY:MONTHLY Resulting Agency Comment Specimen source: Blood Ernie Pompa MD LAB BLOOD ORDERABLES Performing Organization Address City/State/ZIP Code Phon e Number APS SPECTRA [facility] documented in this encounter Visit Diagnoses Not on filedocumented in this encounter
--- OUTSIDE RECORDS SUMMARY | 2021-10-27 05:46 | XMS_ITS | Encounter Summary ---
:1945 Author Organization [facility] Address [address] [place] [address] Care Team Providers Name Role Phone Unavailable Primary Care Provider Unavailable Encounter Details Date Type Department Care Team Description 05/29/2019 Orders Only [facility] O f Ernie Guzmán MD [address] [place] [address] [place], [place] [phone] (Wo rk) Social History Tobacco Use Types Packs/Day Years Used Date Smoking Tobacco: Unknown Comments: Smoking History Info:Patient n ot screened Sex Assigned at Date Recorded Not on file documented as of this encounter Plan of Treatment Not on filedocumented as of this encounter Procedures Procedure Name Priority Date/Time Associated Diagnosis Comme nts HD KINETICS Routine 05/29/2019 Results for thi s procedure are i n the results section . POST CHEMISTRY Routine 05/29/2019 Results for t his procedure are i n the results section . HEMATOLOGY Routine 05/29/2019 Results for thi s procedure are i n the results section . CHEMISTRY Routine 05/29/2019 Results for thi s procedure are i n the results section . SPECTRA K[facility]ON LAB RESULTS Routine 05/29/2019 Resul ts for this procedure are i n the results section . documented in this encounter Results Spectra [facility] Lab Results (05/29/2019) P athologist Signature spKt/V Gotch 1.22 [facility] nPCR_HD 0.53 [facility] eKt/V 1.04 [facility]ON ([place]) eNPCR 0.50 [facility] eKt/V Gotch 1.07 [facility] spKt/V 1.19 KAMERON ([place]augirdas II) eKdrt/V 1.07 [facility] PCR 46.99 [facility]ON Specimen (Source) Anatomical Location Collection Method / Collectio n Time Received Time / Laterality Volume 05/29/2019 05/29/2019 [place] Ordering Provider LAB BLOOD ORDERABLES Performing Organization Address City/[facility]/ZIP [facility] Phon e Number KAMERON (ABNORMAL) HD KINETICS (05/29/2019) P athologist Signature % Urea 64 (L) 65 - 80 % APS SPECTRA Reduction [facility] Specimen (Source) Anatomical Collection Method Collection Time Re ceived Time Location / / Volume Laterality 05/29/2019 05/30/2019 6:23 PM CDT Narrative APS SPECTRA [facility] - 05/30/2019 Unless otherwise specified, test(s) performed at: [facility], [address] [place] [address] CRUISE GUIDE: Tawanna green M.D. For any questions, please call customer service at FREQUENCY:OTHER Resulting Agency Comment Specimen source: Serum Ernie Pompa MD LAB BLOOD ORDERABLES Performing Organization Address City/[facility] Phon e Number APS SPECTRA [facility] (ABNORMAL) Spectrae Chemistry (05/29/2019) athologist Signature BUN 28 (H) 6 - 19 APS SPECTRA mg/dL [facility] Ferritin 252 22 - 322 APS SPECTRA ng/mL [facility] Specimen (Source) Anatomical Collection Method Collection Time Re ceived Time Location / / Volume Laterality 05/29/2019 05/30/2019 6:22 PM CDT Narrative APS SPECTRA [facility] - 05/30/2019 Unless otherwise specified, test(s) performed at: [facility], [address] [place] [address] CRUISE GUIDE: Tawanna green M.D. For any questions, please call customer service at FREQUENCY:OTHER Resulting Agency Comment Specimen source: Serum Ernie Pompa MD LAB BLOOD ORDERABLES Performing Organization Address City/[facility]/ZIP [facility] Phon e Number APS SPECTRA [facility] POST CHEMISTRY (05/29/2019) P athologist Signature BUN Post 10 6 - 19 APS SPECTRA Dialysis mg/dL [facility] Specimen (Source) Anatomical Collection Method Collection Time Re ceived Time Location / / Volume Laterality 05/29/2019 05/30/2019 9:58 AM CDT Narrative APS SPECTRA [facility] - 05/30/2019 Unless otherwise specified, test(s) performed at: [facility], [address] [place], [place] [id number] CRUISE GUIDE: Tawanna green M.D. For any questions, please call customer service at FREQUENCY:OTHER Resulting Agency Comment Specimen source: Plasma Ernie Pompa MD LAB BLOOD ORDERABLES Performing Organization Address City/[facility] Phon e Number APS SPECTRA [facility] (ABNORMAL) HEMATOLOGY (05/29/2019) Analysis Performed At Patho logist Time Signature Hemoglobin 9.4 (L) 14.0 - APS SPECTRA 18.0 g/dL [facility] Hemoglobin x 3 28.2 (L) 42.0 - APS SPECTRA 54.0 % [facility] Specimen (Source) Anatomical Collection Method Collection Time Re ceived Time Location / / Volume Laterality 05/29/2019 05/30/2019 10:0 6 AM CDT Narrative APS SPECTRA [facility] - 05/30/2019 Unless otherwise specified, test(s) performed at: [facility], [address] [place], [place] [id number] CRUISE GUIDE: Tawanna green M.D. For any questions, please call customer service at FREQUENCY:OTHER Resulting Agency Comment Specimen source: Blood Ernie Pompa MD LAB BLOOD ORDERABLES Performing Organization Address City/[facility] Phon e Number APS SPECTRA [facility] documented in this encounter Visit Diagnoses Not on filedocumented in this encounter
--- OUTSIDE RECORDS SUMMARY | 2021-10-27 05:46 | XMS_ITS | Encounter Summary ---
:1945 Author Organization [facility] Address [address] [place] [address] Care Team Providers Name Role Phone Unavailable Primary Care Provider Unavailable Encounter Details Date Type Department Care Team Description 09/11/2019 Orders Only [facility] O f Ernie Guzmán MD [address] [place] [address] [place], [place] [phone] (Wo rk) Social History Tobacco Use Types Packs/Day Years Used Date Smoking Tobacco: Unknown Comments: Smoking History Info:Patient n ot screened Sex Assigned at Date Recorded Not on file documented as of this encounter Plan of Treatment Not on filedocumented as of this encounter Procedures Procedure Name Priority Date/Time Associated Diagnosis Comme nts HEMATOLOGY Routine 09/11/2019 Results for thi s procedure are in the resu lts section. documented in this encounter Results (ABNORMAL) HEMATOLOGY (09/11/2019) [facility] gist Method Time Signature Neutrophils 73.8 40.0 - [facility]PS [facility] 75.0 % [facility] Lymphocytes 11.4 (L) 19.0 - APS [facility] Relative 48.0 % [facility] Monocytes 9.4 3.0 - 10.0 APS SPECTRA % [facility] Eosinophils 1.8 0.0 - 7.0 APS [facility] Relative % [facility] Basophils 0.9 0.0 - 1.5 APS [facility] Relative % [facility] YASMIN 2.8 0.0 - 4.0 APS SPECTRA % [facility] Hemoglobin 11.6 (L) 14.0 - APS [facility]PECTRA 18.0 g/dL [facility] Hemoglobin x 3 34.8 (L) 42.0 - APS [facility]PECTRA 54.0 % [facility] Specimen (Source) Anatomical Collection Method Collection Time Re ceived Time Location / / Volume Laterality 09/11/2019 09/12/2019 12:1 1 PM CDT Narrative APS SPECTRA [facility] - 09/13/2019 Unless otherwise specified, test(s) performed at: [facility], [address] [place] [address] SLAB GRINDER: Alec Payan M.D. For any questions, please call customer service at FREQUENCY:OTHER Resulting Agency Comment Specimen source: Blood Ernie Pompa MD LAB BLOOD ORDERABLES Performing Organization Address City/State/ZIP Code Phon e Number APS SPECTRA [facility] documented in this encounter Visit Diagnoses Not on filedocumented in this encounter
--- OUTSIDE RECORDS SUMMARY | 2021-10-27 05:46 | XMS_ITS | Encounter Summary ---
:1945 Author Organization [facility] Address [address] [place] [address] Care Team Providers Name Role Phone Unavailable Primary Care Provider Unavailable Encounter Details Date Type Department Care Team Description 07/29/2019 Orders Only [facility] O f Ernie Guzmán MD [phone] [place] [address] [place], [place] [phone] (Wo rk) Social History Tobacco Use Types Packs/Day Years Used Date Smoking Tobacco: Unknown Comments: Smoking History Info:Patient n ot screened Sex Assigned at Date Recorded Not on file documented as of this encounter Plan of Treatment Not on filedocumented as of this encounter Procedures Procedure Name Priority Date/Time Associated Diagnosis Comme nts CHEMISTRY Routine 07/29/2019 Results for thi s procedure are in the resu lts section. documented in this encounter Results Spectrae Chemistry (07/29/2019) P athologist Signature Ferritin 200 22 - 322 APS [facility]PECTRA ng/mL [facility] Specimen (Source) Anatomical Collection Method Collection Time Re ceived Time Location / / Volume Laterality 07/29/2019 07/30/2019 4:26 PM CDT Narrative APS SPECTRA [facility] - 07/30/2019 Unless otherwise specified, test(s) performed at: [facility], [address] [place] [address] DRAIN TILE MACHINE OPERATOR: Alec Payan M.D. For any questions, please call customer service at FREQUENCY:OTHER Resulting Agency Comment Specimen source: Serum Ernie Pompa MD LAB BLOOD ORDERABLES Performing Organization Address City/State/ZIP Code Phon e Number APS SPECTRA [facility] documented in this encounter Visit Diagnoses Not on filedocumented in this encounter
--- OUTSIDE RECORDS SUMMARY | 2021-10-27 05:46 | XMS_ITS | Encounter Summary ---
:1945 Author Organization [facility] Address [address] [place] [address] Care Team Providers Name Role Phone Unavailable Primary Care Provider Unavailable Encounter Details Date Type Department Care Team Description 08/28/2019 Treatment [facility] O Ernie Gómez MD [address] [place] [address] [place], [place] [phone] (Wo rk) Social History Tobacco Use Types Packs/Day Years Used Date Smoking Tobacco: Unknown Comments: Smoking History Info:Patient n ot screened Sex Assigned at Date Recorded Not on file documented as of this encounter Miscellaneous Notes Dialysis Note - Ernie Pompa MD - 08/28/2019 12:51 PM CDT Date: Aug 28, 2019 Patient Name: Shaun Ocampo : 1945 Chart #: [id number] Sex: M This patient was personally seen for a complete visit as part of routine monthly dialysis care. A review of the dialysis treatment, blood pressure, estimated dry weight and recent lab values was made. These were discussed with the patient and staff as necessary. Treatment Data for 08/28/2019 started at:11:03 AM Dialyzer: 180NRe Optiflux Na: 138 mEq/L Bicarb: 26 mEq/L Dialysate: 3.0 K, 2.25 Ca, 1.0 Mg, 100 Dextrose (G3231) Dialysate/Machine Temp (prescribed): 37 C Dialysate/Machine Temp (actual): 36.9 C BFR (prescribed): 500 BFR (actual): 550 Prescribed time: 4:0 EDW: 118 kg Access Type: Active (In Use):AVFistula-Standard/Left Upper Arm Pre Dialysis Vitals (for 08/28/2019 10:47 AM ) Pre BP (sit): 168/84 Pre Wt: 121.3 kg Temp: 98.2 F Post Dialysis Vitals (for 08/26/2019 3:05 PM ) Post BP (sit): 141/75 Post Wt: 118 kg Current Dialysis Vitals (for 08/28/2019 12:38 PM ) BP (sit): 147/58 AP(-) / [place]NA[place] BACON TIER: 198/168 Pulse: 65 Chairside data as of 08/28/2019 12:38 PM Last 3 Treatments 08/26/2019 08/23/2019 08/21/2019 EDW (kg) 118.6 119.7 120.9 Weight Pre (kg) 121.6 122.4 122 Weight Post (kg) 118 118.6 119.7 Dialytic Weight Loss (kg) -3.6 -3.8 -2.3 EDW Deviation (kg) -0.6 -1.1 -1.2 BP Sit Pre 166/62 148/58 163/63 BP Sit Post 141/75 149/64 164/65 UF Rate (mL/kg/hr) 8 8 5 Prescribed BFR 500 500 500 Average Delivered BFR 550 460 550 Prescribed Treatment Time 4:0 4:0 4:0 Actual Treatment Time 04:01 04:04 04:04 Last 2 Values 08/23/2019 08/02/2019 Access Flow > 2000 1510 Treatment Medication Orders Medication Sig Start Date End Date Heparin Sodium (Porcine) 1,000 Units/mL Systemic 2000 units IVP Every Treatment 05/01/2019 04/29/2020 Heparin Sodium (Porcine) 1,000 Units/mL Systemic 1000 units IVP Every Treatment 05/01/2019 04/29/2020 Iron Sucrose (Venofer) 100 mg IVP Every Treatment During Dialysis 08/26/2019 09/16/2019 BIBLE WORKER: Ernie Pompa MD LOCATION: [phone] SCHEDULE: -- 2nd Shift EDW: kg. DIALYZER: HD DURATION: NEEDLE SIZE: ANTICOAG: BATH: QB: ml/min QD: ml/min Subjective Tolerating dialysis well. 08/27: Shaun is doing really well, no [...] to auscultation bilaterally. Cardiovascular - Regular rate. per RN Edema - 1+ leg edema. improving but still edema, chronic stasis changes Access - AVF intact [...] mcg capsule Take 1 capsule by mouth three times a week. MON- MON- MON only Discontinue at home dose when supply finished cholecalciferol (vitamin D3) 50 mcg (2,000 unit) [...] made. Treatment and Adequacy Assessment BUN mg/dL 40 (08/21/19) 29 (07/24/19) 35 (07/03/19) 35 (06/19/19) 28 (05/29/19) UREA NITROGEN (MG/DL) IN SER/PLAS - POST DIALYSIS mg/dL 10 (08/21/19) 9 (07/24/19) 10 (07/03/19) 13 (06/19/19) 10 (05/29/19) URR % 75 (08/21/19) 69 (07/24/19) 71 (07/03/19) 63 (06/19/19) 64 (05/29/19) spKt/V Gotch 1.63 (08/21/19) 1.37 (07/24/19) 1.48 (07/03/19) 1.16 (06/19/19) 1.22 (05/29/19) eKdrt/V 1.42 (08/21/19) 1.2 (07/24/19) 1.29 (07/03/19) 1.02 (06/19/19) 1.07 (05/29/19) spKt/V (Daugirdas II) 1.6000 (08/21/19) 1.3500 (07/24/19) 1.4400 (07/03/19) 1.1400 (06/19/19) 1.1900 (05/29/19) Dialysis is adequate. Achieves prescribed time - Yes Achieves prescribed frequency - Yes Continue current prescription. Vascular Access Assessment Type of access: [id number]/[email or web address] Surgeon - Lary GARDNER Access working well Anemia Assessment HEMOGLOBIN (G/DL) IN BLOOD g/dL 11.3 (08/21/19) 12.0 (08/14/19) 12.0 (08/07/19) 12.0 (07/31/19) 11.1 (07/24/19) PLATELETS 1000/mcL 208 (08/21/19) 218 (07/24/19) 218 (06/19/19) 223 (05/22/19) 104 (05/01/19) IRON SATURATION % 24 (08/21/19) 20 (07/24/19) 19 (06/19/19) 21 (05/22/19) 10 (05/01/19) FERRITIN ng/mL 200 (07/29/19) 134 (06/19/19) 252 (05/29/19) 105 (05/01/19) Hemoglobin is above goal. Iron Saturation is at goal. Ferritin is below goal. Will adjust NATALEE and intravenous iron per protocol. No NATALEE Nutritional and Metabolic Assessment ALBUMIN (G/DL) g/dL 3.2 (08/21/19) 3.2 (07/24/19) 3.4 (06/19/19) 3.3 (05/22/19) 3.4 (05/01/19) Sodium mEq/L 137 (08/21/19) 137 (07/24/19) 137 (06/19/19) 139 (05/22/19) 139 (05/01/19) POTASSIUM (MMOL/L) IN SER/PLAS mEq/L 3.8 (08/21/19) 4.8 (07/24/19) 4.4 (06/19/19) 3.8 (05/22/19) 4.5 (05/01/19) BICARBONATE (CO2) mEq/L 27 (08/21/19) 24 (07/24/19) 22 (06/19/19) 26 (05/22/19) 26 (05/01/19) 25 OH VITAMIN D ng/mL 44.4 (05/01/19) Albumin is below goal. Encourage high-biological value protein intake. Potassium is at goal. Bicarbonate is at goal. Continue same bicarbonate in dialysate. Bone and Mineral Metabolism Assessment Calcium mg/dL 9.7 (08/21/19) 10.0 (07/24/19) 9.9 (06/19/19) 9.9 (05/22/19) 9.5 (05/01/19) CALCIUM (MG/DL) CORRECTED FOR ALBUMIN IN SER/PLAS mg/dL 10.3 (08/21/19) 10.6 (07/24/19) 10.4 (06/19/19) 10.5 (05/22/19) 10.0 (05/01/19) PHOSPHATE (MG/DL) IN SER/PLAS mg/dL 3.5 (08/21/19) 3.5 (07/24/19) 3.9 (06/19/19) 3.4 (05/22/19) 4.4 (05/01/19) CALCIUM PHOSPHORUS PRODUCT, COR 36 (08/21/19) 37 (07/24/19) 41 (06/19/19) 36 (05/22/19) 44 (05/01/19) IPTH pg/mL 164 (07/24/19) 199 (06/19/19) 351 (05/01/19) Corrected Calcium is above goal. Phosphorous is at goal. Intact PTH is below goal. Price Lister will adjust binders and vitamin D per protocol and continue to provide dietary education. Decrease calcitriol, monitor Cardiovascular Assessment Blood pressures reviewed and are acceptable. Intradialytic weight gains are appropriate. Estimated dry weight is too high, will decrease. challenge every treatment Transplant Status: Patient is not a candidate. Weight, co-morbidities Resuscitation Status Tolerating dialysis well, no changes to prescription and will continue to challenge EDW with each treatment as tolerated Ernie Pompa MD [ Signed And locked electronically On 08/28/2019 at 12:53:13 PM ] Transcribed: Ernie Pompa ( 08/28/2019 ) documented in this encounter Plan of Treatment Not on filedocumented as of this encounter Visit Diagnoses Not on filedocumented in this encounter
--- OUTSIDE RECORDS SUMMARY | 2021-10-27 05:46 | XMS_ITS | Encounter Summary ---
:1945 Author Organization [facility] Address [address] [place] [address] Care Team Providers Name Role Phone Unavailable Primary Care Provider Unavailable Encounter Details Date Type Department Care Team Description 07/24/2019 Orders Only [facility] O f Ernie Guzmán MD [phone] [place] [address] [place], [place] [phone] (Wo rk) Social History Tobacco Use Types Packs/Day Years Used Date Smoking Tobacco: Unknown Comments: Smoking History Info:Patient n ot screened Sex Assigned at Date Recorded Not on file documented as of this encounter Plan of Treatment Not on filedocumented as of this encounter Procedures Procedure Name Priority Date/Time Associated Diagnosis Comme nts HD KINETICS Routine 07/24/2019 Results for thi s procedure are i n the results section . POST CHEMISTRY Routine 07/24/2019 Results for t his procedure are i n the results section . HEMATOLOGY Routine 07/24/2019 Results for thi s procedure are i n the results section . CHEMISTRY Routine 07/24/2019 Results for thi s procedure are i n the results section . CHEMISTRY Routine 07/24/2019 Results for thi s procedure are i n the results section . SPECTRA [facility] LAB RESULTS Routine 07/24/2019 Resul ts for this procedure are i n the results section . documented in this encounter Results Spectra [facility] Lab Results (07/24/2019) P athologist Signature eKt/V Gotch 1.20 [facility] spKt/V 1.35 [facility] (Daugirdas II) eNPCR 0.53 [facility] nPCR_HD 0.57 [facility] eKt/V 1.18 [facility] ([place]) PCR 51.40 [facility] spKt/V Gotch 1.37 [facility] eKdrt/V 1.20 [facility] Specimen (Source) Anatomical Location Collection Method / Collectio n Time Received Time / Laterality Volume 07/24/2019 07/24/2019 [facility] Ordering Provider LAB BLOOD ORDERABLES Performing Organization Address [facility] Phon e Number [facility] (ABNORMAL) Spectrae Chemistry (07/24/2019) P athologist Signature PTH 164 (H) 16 - 80 APS SPECTRA pg/mL [facility] Specimen (Source) Anatomical Collection Method Collection Time Re ceived Time Location / / Volume Laterality 07/24/2019 07/25/2019 6:44 PM CDT Narrative APS SPECTRA [facility] - 07/26/2019 Unless otherwise specified, test(s) performed at: [facility], [address] [place] [address] EMPLOYEE HEALTH NURSE: Alec Payan M.D. For any questions, please call customer service at FREQUENCY:MONTHLY Resulting Agency Comment Specimen source: Plasma Ernie Pompa MD LAB BLOOD ORDERABLES Performing Organization Address [facility] Phon e Number APS SPECTRA [facility] HD KINETICS (07/24/2019) P athologist Signature % Urea 69 65 - 80 % APS SPECTRA Reduction [facility] Specimen (Source) Anatomical Collection Method Collection Time Re ceived Time Location / / Volume Laterality 07/24/2019 07/25/2019 7:05 PM CDT Narrative APS SPECTRA [facility] - 07/26/2019 Unless otherwise specified, test(s) performed at: [facility], [address] [place] [address] EMPLOYEE HEALTH NURSE: Alec Payan M.D. For any questions, please call customer service at FREQUENCY:MONTHLY Resulting Agency Comment Specimen source: Plasma Ernie Pompa MD LAB BLOOD ORDERABLES Performing Organization Address [facility] Phon e Number APS SPECTRA [facility] (ABNORMAL) Spectrae Chemistry (07/24/2019) Patholo gist Method Time Signature BUN 29 (H) 6 - 19 APS SPECTRA mg/dL [facility] Creatinine 3.10 (H) 0.60 - APS SPECTRA 1.30 mg/dL [facility] BUN/Creatinine 9.4 (L) 10.0 - APS SPECTRA Ratio 20.0 [facility] Sodium 137 136 - 145 APS SPECTRA mEq/L [facility] Potassium 4.8 3.5 - 5.1 APS [facility]PECTRA mEq/L [facility] Chloride 104 96 - 108 APS [facility]RA mEq/L [facility] Bicarbonate 24 22 - 29 APS SPECTRA (CO2) mEq/L [facility] Calcium 10.0 8.4 - 10.2 APS SPECTRA mg/dL [facility] Corrected 10.6 (H) 8.4 - 10.2 APS SPECTRA Calcium mg/dL [facility] Comment: Corrected Calcium is not equivalent to m easured Ionized Calcium. Phosphorus 3.5 2.6 - 4.5 mg/dL APS SPECTRA [facility] Calcium Phosphorus Product 35 0 - 54 APS SPECTRA [facility] Calcium Phosporus Product, Cor 37 0 - 54 APS SPECTRA [facility] Total Protein 6.1 6.0 - 8.5 g/dL APS SPECTRA [facility] Albumin 3.2 (L) 3.5 - 5.2 g/dL [facility]PS S[facility]RA [facility] [place] Globulin, Total 2.9 2.0 - 4.0 g/dL APS SPECT RA [facility] A/G Ratio 1.1 1.0 - 2.0 APS SPECTRA [facility] Iron 47 45 - 160 mcg/dL APS SPECTRA [place] [facility] UIBC 183 155 - 355 mcg/dL APS SPECTRA [facility] TIBC 230 185 - 515 mcg/dL APS SPECTRA [facility] Iron Saturation (TSat) 20 20 - 55 % APS SPE CTRA [facility] Specimen (Source) Anatomical Collection Method Collection Time Re ceived Time Location / / Volume Laterality 07/24/2019 07/25/2019 7:04 PM CDT Narrative APS SPECTRA [facility] - 07/26/2019 Unless otherwise specified, test(s) performed at: [facility], [address] [place] [address] EMPLOYEE HEALTH NURSE: Alec Payan M.D. For any questions, please call customer service at FREQUENCY:MONTHLY Resulting Agency Comment Specimen source: Serum Ernie Pompa MD LAB BLOOD ORDERABLES Performing Organization Address City/State/ZIP Code Phon e Number APS SPECTRA [facility] POST CHEMISTRY (07/24/2019) P athologist Signature BUN Post 9 6 - 19 APS SPECTRA Dialysis mg/dL [facility] Specimen (Source) Anatomical Collection Method Collection Time Re ceived Time Location / / Volume Laterality 07/24/2019 07/25/2019 7:04 PM CDT Narrative APS SPECTRA [facility] - 07/25/2019 Unless otherwise specified, test(s) performed at: [facility], [address] [place], [place] [id number] EMPLOYEE HEALTH NURSE: Alec Payan M.D. For any questions, please call customer service at FREQUENCY:MONTHLY Resulting Agency Comment Specimen source: Plasma Ernie Pompa MD LAB BLOOD ORDERABLES Performing Organization Address City/[facility] Phon e Number APS SPECTRA [facility] (ABNORMAL) HEMATOLOGY (07/24/2019) Analysis Performed At Patho logist Time Signature WBC 5.80 4.80 - APS SPECTRA 10.80 [facility] 1000/mcL RBC 3.76 (L) 4.70 - APS SPECTRA 6.10 [facility] mill/mcL Hemoglobin 11.1 (L) 14.0 - APS SPECTRA 18.0 g/dL [facility] Hemoglobin x 3 33.3 (L) 42.0 - APS SPECTRA 54.0 % [facility] Hematocrit 38.0 (L) 42.0 - APS SPECTRA 52.0 % [facility] MCV 101 (H) 80 - 100 APS SPECTRA fl [facility] MCH 29.5 27.0 - APS SPECTRA 31.0 pg [facility] MCHC 29.2 (L) 30.0 - APS SPECTRA 36.0 g/dL [facility] RDW 16.1 (H) 11.5 - APS SPECTRA 14.5 % [facility] Platelets 218 130 - 400 APS SPECTRA 1000/mcL [facility] Specimen (Source) Anatomical Collection Method Collection Time Re ceived Time Location / / Volume Laterality 07/24/2019 07/25/2019 6:44 PM CDT Narrative APS SPECTRA [facility] - 07/25/2019 Unless otherwise specified, test(s) performed at: [facility], [address] [place], [place] [id number] EMPLOYEE HEALTH NURSE: Alec Payan M.D. For any questions, please call customer service at FREQUENCY:MONTHLY Resulting Agency Comment Specimen source: Blood Ernie Pompa MD LAB BLOOD ORDERABLES Performing Organization Address City/State/ZIP Code Phon e Number APS SPECTRA [facility] documented in this encounter Visit Diagnoses Not on filedocumented in this encounter
--- OUTSIDE RECORDS SUMMARY | 2021-10-27 05:46 | XMS_ITS | Encounter Summary ---
:1945 Author Organization [facility] Address [address] [place] [address] Care Team Providers Name Role Phone Unavailable Primary Care Provider Unavailable Encounter Details Date Type Department Care Team Description 05/22/2019 Orders Only [facility] O f Ernie Guzmán MD [phone] [place] [address] [place], [place] [phone] (Wo rk) Social History Tobacco Use Types Packs/Day Years Used Date Smoking Tobacco: Unknown Comments: Smoking History Info:Patient n ot screened Sex Assigned at Date Recorded Not on file documented as of this encounter Plan of Treatment Not on filedocumented as of this encounter Procedures Procedure Name Priority Date/Time Associated Diagnosis Comme nts HD KINETICS Routine 05/22/2019 Results for thi s procedure are i n the results section . POST CHEMISTRY Routine 05/22/2019 Results for t his procedure are i n the results section . HEMATOLOGY Routine 05/22/2019 Results for thi s procedure are i n the results section . CHEMISTRY Routine 05/22/2019 Results for thi s procedure are i n the results section . SPECTRA [facility] LAB RESULTS Routine 05/22/2019 Resul ts for this procedure are i n the results section . documented in this encounter Results Spectra [facility] Lab Results (05/22/2019) P athologist Signature spKt/V Gotch 0.97 [facility] eKdrt/V 0.86 [facility] spKt/V 0.95 [facility] (Daugirdas II) nPCR_HD 0.50 [facility] eKt/V 0.83 [facility] ([place]) eKt/V Gotch 0.86 [facility] eNPCR 0.47 [facility] PCR 42.64 [facility] Specimen (Source) Anatomical Location Collection Method / Collectio n Time Received Time / Laterality Volume 05/22/2019 05/22/2019 [facility] Ordering Provider LAB BLOOD ORDERABLES Performing Organization Address City/State/ZIP Code Phon e Number [facility] (ABNORMAL) HD KINETICS (05/22/2019) P athologist Signature % Urea 57 (L) 65 - 80 % APS SPECTRA Reduction [facility] Specimen (Source) Anatomical Collection Method Collection Time Re ceived Time Location / / Volume Laterality 05/22/2019 05/23/2019 10:5 1 PM LOCOMOTIVE REPAIRER DIESEL Resulting Agency Comment Specimen source: Plasma Ernie Pompa MD LAB BLOOD ORDERABLES Performing Organization Address City/State/ZIP Code Phon e Number APS SPECTRA [facility] POST CHEMISTRY (05/22/2019) athologist Signature BUN Post 13 6 - 19 APS SPECTRA Dialysis mg/dL [facility] Specimen (Source) Anatomical Collection Method Collection Time Re ceived Time Location / / Volume Laterality 05/22/2019 05/23/2019 10:5 1 PM LOCOMOTIVE REPAIRER DIESEL Narrative APS SPECTRA [facility] - 05/24/2019 Unless otherwise specified, test(s) performed at: [facility], [address] [place] [address] DIVISION CONTROLLER: Tawanna green M.D. For any questions, please call customer service at FREQUENCY:MONTHLY Resulting Agency Comment Specimen source: Plasma Ernie Pompa MD LAB BLOOD ORDERABLES Performing Organization Address City/[facility]/ZIP Code Phon e Number APS SPECTRA [facility] (ABNORMAL) Spectrae Chemistry (05/22/2019) [facility] Method Time Signature BUN 30 (H) 6 - 19 APS SPECTRA mg/dL [facility] Creatinine 3.29 (H) 0.60 - APS SPECTRA 1.30 mg/dL [facility] BUN/Creatinine 9.1 (L) 10.0 - APS SPECTRA Ratio 20.0 [facility] Sodium 139 136 - 145 APS SPECTRA mEq/L [facility] Potassium 3.8 3.5 - 5.1 APS SPECTRA mEq/L [facility] Chloride 104 96 - 108 APS SPECTRA mEq/L [facility] Bicarbonate 26 22 - 29 APS SPECTRA (CO2) mEq/L [facility] Calcium 9.9 8.4 - 10.2 APS SPECTRA mg/dL [facility] Corrected 10.5 (H) 8.4 - 10.2 APS SPECTRA Calcium mg/dL [facility] Comment: Corrected Calcium is not equivalent to m easured Ionized Calcium. Phosphorus 3.4 2.6 - 4.5 mg/dL APS SPECTRA [facility] Calcium Phosphorus Product 34 0 - 54 APS SPECTRA [facility] Calcium Phosporus Product, Cor 36 0 - 54 APS SPECTRA [facility] Total Protein 6.0 6.0 - 8.5 g/dL APS SPECTRA [facility] Albumin 3.3 (L) 3.5 - 5.2 g/dL APS SPECTRA [facility] [place] Globulin, Total 2.7 2.0 - 4.0 g/dL APS SPECT RA [facility] A/G Ratio 1.2 1.0 - 2.0 APS SPECTRA [facility] Iron 53 45 - 160 mcg/dL APS SPECTRA [place] MMN UIBC 196 155 - 355 mcg/dL APS SPECTRA K [facility] TIBC 249 185 - 515 mcg/dL APS SPECTRA [facility] Iron Saturation (TSat) 21 20 - 55 % APS SPE CTRA [facility] Specimen (Source) Anatomical Collection Method Collection Time Re ceived Time Location / / Volume Laterality 05/22/2019 05/23/2019 11:2 0 AM LOCOMOTIVE REPAIRER DIESEL Narrative APS SPECTRA [facility] - 05/23/2019 Unless otherwise specified, test(s) performed at: [facility], [address] [place] [address] DIVISION CONTROLLER: Tawanna green M.D. For any questions, please call customer service at FREQUENCY:MONTHLY Resulting Agency Comment Specimen source: Serum Ernie Pompa MD LAB BLOOD ORDERABLES Performing Organization Address City/State/ZIP Code Phon e Number APS SPECTRA [facility] (ABNORMAL) HEMATOLOGY (05/22/2019) Analysis Performed At Patho logist Time Signature WBC 6.93 4.80 - APS SPECTRA 10.80 [facility] 1000/mcL RBC 2.87 (L) 4.70 - APS SPECTRA 6.10 [facility] mill/mcL Hemoglobin 9.0 (L) 14.0 - APS SPECTRA 18.0 g/dL [facility] Hemoglobin x 3 27.0 (L) 42.0 - APS SPECTRA 54.0 % [facility] Hematocrit 29.8 (L) 42.0 - APS SPECTRA 52.0 % [facility] MCV 104 (H) 80 - 100 APS SPECTRA fl [facility] MCH 31.5 (H) 27.0 - APS SPECTRA 31.0 pg [facility] MCHC 30.4 30.0 - APS SPECTRA 36.0 g/dL [facility] RDW 18.2 (H) 11.5 - APS SPECTRA 14.5 % [facility] Platelets 223 130 - 400 APS SPECTRA 1000/mcL [facility] Specimen (Source) Anatomical Collection Method Collection Time Re ceived Time Location / / Volume Laterality 05/22/2019 05/23/2019 12:4 6 PM LOCOMOTIVE REPAIRER DIESEL Narrative APS SPECTRA [facility] - 05/23/2019 Unless otherwise specified, test(s) performed at: [facility], [address] [place] [address] DIVISION CONTROLLER: Tawnana green M.D. For any questions, please call customer service at FREQUENCY:MONTHLY Resulting Agency Comment Specimen source: Blood Ernie Pompa MD LAB BLOOD ORDERABLES Performing Organization Address City/State/ZIP Code Phon e Number APS SPECTRA [facility] documented in this encounter Visit Diagnoses Not on filedocumented in this encounter
--- OUTSIDE RECORDS SUMMARY | 2021-10-27 05:46 | XMS_ITS | Encounter Summary ---
:1945 Author Organization [facility] Address [address] [place] [address] Care Team Providers Name Role Phone Unavailable Primary Care Provider Unavailable Encounter Details Date Type Department Care Team Description 07/17/2019 Orders Only [facility] f Ernie Guzmán MD [phone] [place] [address] [place], [place] [phone] (Wo rk) Social History Tobacco Use Types Packs/Day Years Used Date Smoking Tobacco: Unknown Comments: Smoking History Info:Patient n ot screened Sex Assigned at Date Recorded Not on file documented as of this encounter Plan of Treatment Not on filedocumented as of this encounter Procedures Procedure Name Priority Date/Time Associated Diagnosis Comme nts HEMATOLOGY Routine 07/17/2019 Results for thi s procedure are in the resu lts section. documented in this encounter Results (ABNORMAL) HEMATOLOGY (07/17/2019) Analysis Performed At Patho logist Time Signature Hemoglobin 11.3 (L) 14.0 - [facility] 18.0 g/dL [facility] Hemoglobin x 3 33.9 (L) 42.0 - [facility] 54.0 % [facility] Specimen (Source) Anatomical Collection Method Collection Time Re ceived Time Location / / Volume Laterality 07/17/2019 07/18/2019 2:24 PM CDT Narrative [facility] - 07/18/2019 Unless otherwise specified, test(s) performed at: [facility], [address] [place] [address] COMMERCIAL TIRE SERVICE TECHNICIAN: Alec Payan M.D. For any questions, please call customer service at FREQUENCY:OTHER Resulting Agency Comment Specimen source: Blood Ernie Pompa MD LAB BLOOD ORDERABLES Performing Organization Address City/State/ZIP Code Phon e Number [facility] documented in this encounter Visit Diagnoses Not on filedocumented in this encounter
--- OUTSIDE RECORDS SUMMARY | 2021-10-27 05:46 | XMS_ITS | Encounter Summary ---
:1945 Author Organization [facility] Address [address] [place] [address] Care Team Providers Name Role Phone Unavailable Primary Care Provider Unavailable Encounter Details Date Type Department Care Team Description 08/28/2019 Orders Only [facility] O f Ernie Guzmán MD [phone] [place] [address] [place], [place] [phone] (Wo rk) Social History Tobacco Use Types Packs/Day Years Used Date Smoking Tobacco: Unknown Comments: Smoking History Info:Patient n ot screened Sex Assigned at Date Recorded Not on file documented as of this encounter Plan of Treatment Not on filedocumented as of this encounter Procedures Procedure Name Priority Date/Time Associated Diagnosis Comme nts HEMATOLOGY Routine 08/28/2019 Results for thi s procedure are in the resu lts section. documented in this encounter Results (ABNORMAL) HEMATOLOGY (08/28/2019) Analysis Performed At Patho logist Time Signature Hemoglobin 11.3 (L) 14.0 - [facility] 18.0 g/dL [facility] Hemoglobin x 3 33.9 (L) 42.0 - [facility] 54.0 % [facility] Specimen (Source) Anatomical Collection Method Collection Time Re ceived Time Location / / Volume Laterality 08/28/2019 08/29/2019 10:0 5 AM CDT Narrative [facility] - 08/29/2019 Unless otherwise specified, test(s) performed at: [facility], [address] [place] [address] JAPANESE TUTOR: Alec Payan M.D. For any questions, please call customer service at FREQUENCY:OTHER Resulting Agency Comment Specimen source: Blood Ernie Pompa MD LAB BLOOD ORDERABLES Performing Organization Address City/State/ZIP Code Phon e Number [facility] documented in this encounter Visit Diagnoses Not on filedocumented in this encounter
--- OUTSIDE RECORDS SUMMARY | 2021-10-27 05:46 | XMS_ITS | Encounter Summary ---
:1945 Author Organization [facility] Address [address] [place] [address] Care Team Providers Name Role Phone Unavailable Primary Care Provider Unavailable Encounter Details Date Type Department Care Team Description 06/12/2019 Orders Only [facility] O f Ernie Guzmán MD [phone] [place] [address] [place], [place] [phone] (Wo rk) Social History Tobacco Use Types Packs/Day Years Used Date Smoking Tobacco: Unknown Comments: Smoking History Info:Patient n ot screened Sex Assigned at Date Recorded Not on file documented as of this encounter Plan of Treatment Not on filedocumented as of this encounter Procedures Procedure Name Priority Date/Time Associated Diagnosis Comme nts HEMATOLOGY Routine 06/12/2019 Results for thi s procedure are in the resu lts section. documented in this encounter Results (ABNORMAL) HEMATOLOGY (06/12/2019) Analysis Performed At Patho logist Time Signature Hemoglobin 9.7 (L) 14.0 - [facility] 18.0 g/dL [facility] Hemoglobin x 3 29.1 (L) 42.0 - [facility] 54.0 % [facility] Specimen (Source) Anatomical Collection Method Collection Time Re ceived Time Location / / Volume Laterality 06/12/2019 06/13/2019 12:4 2 PM CDT Narrative [facility] - 06/13/2019 Unless otherwise specified, test(s) performed at: [facility], [address] [place] [address] SLATE MIXER: Tawanna green M.D. For any questions, please call customer service at FREQUENCY:OTHER Resulting Agency Comment Specimen source: Blood Ernie Pompa MD LAB BLOOD ORDERABLES Performing Organization Address City/State/ZIP Code Phon e Number [facility] documented in this encounter Visit Diagnoses Not on filedocumented in this encounter
--- OUTSIDE RECORDS SUMMARY | 2021-10-27 05:46 | XMS_ITS | Encounter Summary ---
:1945 Author Organization [facility] Address [address] [place] [address] Care Team Providers Name Role Phone Unavailable Primary Care Provider Unavailable Encounter Details Date Type Department Care Team Description 07/10/2019 Treatment [facility] O Ernie Gómez MD [address] [place] [address] [place], [place] [phone] (Wo rk) Social History Tobacco Use Types Packs/Day Years Used Date Smoking Tobacco: Unknown Comments: Smoking History Info:Patient n ot screened Sex Assigned at Date Recorded Not on file documented as of this encounter Miscellaneous Notes Dialysis Note - Ernie Pompa MD - 07/10/2019 11:42 AM CDT Date: Jul 10, 2019 Patient Name: Shaun Ocampo : 1945 Chart #: [id number] Sex: M This patient was personally seen for a basic visit as part of routine weekly dialysis care. A reviewof the dialysis treatment, blood pressure, estimated dry weight and recent lab values was made. These were discussed with the patient and staff as necessary. Treatment Data for 07/10/2019 started at:10:53 AM Dialyzer: 180NRe Optiflux Na: 138 mEq/L Bicarb: 28 mEq/L Dialysate: 3.0 K, 2.25 Ca, 1.0 Mg, 100 Dextrose (G3231) Dialysate/Machine Temp (prescribed): 37 C Dialysate/Machine Temp (actual): 37 C BFR (prescribed): 500 BFR (actual): n/a Prescribed time: 4:0 EDW: 126.5 kg Access Type: Active (In Use):AVFistula-Standard/Left Upper Arm Pre Dialysis Vitals (for 07/10/2019 10:46 AM ) Pre BP (sit): 154/68 Pre Wt: 128.7 kg Temp: 96 F Post Dialysis Vitals (for 07/08/2019 3:02 PM ) Post BP (sit): 153/62 Post Wt: 126.1 kg Current Dialysis Vitals (for 07/10/2019 11:34 AM ) BP (sit): 136/58 AP(-) / SUPERVISOR METAL HANGING: n/a Pulse: 76 Chairside data as of 07/10/2019 11:34 AM Last 3 Treatments 07/08/2019 07/05/2019 07/03/2019 EDW (kg) 126.5 126.5 126.5 Weight Pre (kg) 129.8 128.4 128.3 Weight Post (kg) 126.1 126 126 Dialytic Weight Loss (kg) -3.7 -2.4 -2.3 EDW Deviation (kg) -0.4 -0.5 -0.5 BP Sit Pre 150/78 152/83 173/91 BP Sit Post 153/62 118/42 154/82 UF Rate (mL/kg/hr) 7 5 4 Prescribed BFR 500 500 500 Average Delivered BFR 500 330 490 Prescribed Treatment Time 4:0 4:0 4:0 Actual Treatment Time 04:04 04:02 04:04 FEEDER DRIVER: Ernie Pompa MD LOCATION: [place] [phone] SCHEDULE: M-W- 2nd Shift ACCESS: EDW: kg. DIALYZER: HD DURATION: NEEDLE SIZE: ANTICOAG: BATH: QB: ml/min QD: ml/min Subjective Tolerating dialysis well. 07/09: He is doing well. He still [...] renal dialysis V45.11 Z99.2 Exam Respiratory - breathing comfortably on room air Cardiovascular Regular rate. no cyanosis Edema - 1+ leg edema. with chronic [...] and no changes were made. BUN mg/dL 35 (07/03/19) 35 (06/19/19) 28 (05/29/19) 30 (05/22/19) 29 (05/15/19) UREA NITROGEN (MG/DL) IN SER/PLAS - POST DIALYSIS mg/dL 10 (07/03/19) 13 (06/19/19) 10 (05/29/19) 13 (05/22/19) 11 (05/15/19) URR % 71 (07/03/19) 63 (06/19/19) 64 (05/29/19) 57 (05/22/19) 62 (05/15/19) spKt/V Gotch 1.48 (07/03/19) 1.16 (06/19/19) 1.22 (05/29/19) .97 (05/22/19) 1.08 (05/15/19) eKdrt/V 1.29 (07/03/19) 1.02 (06/19/19) 1.07 (05/29/19) .86 (05/22/19) .95 (05/15/19) spKt/V (Daugirdas II) 1.4400 (07/03/19) 1.1400 (06/19/19) 1.1900 (05/29/19) 0.9500 (05/22/19) 1.0700 (05/15/19) HEMOGLOBIN (G/DL) IN BLOOD g/dL 11.0 (07/03/19) 10.4 (06/26/19) 10.4 (06/19/19) 9.7 (06/12/19) 10.0 (06/05/19) PLATELETS 1000/mcL 218 (06/19/19) 223 (05/22/19) 104 (05/01/19) IRON SATURATION % 19 (06/19/19) 21 (05/22/19) 10 (05/01/19) FERRITIN ng/mL 134 (06/19/19) 252 (05/29/19) 105 (05/01/19) ALBUMIN (G/DL) g/dL 3.4 (06/19/19) 3.3 (05/22/19) 3.4 (05/01/19) Sodium mEq/L 137 (06/19/19) 139 (05/22/19) 139 (05/01/19) POTASSIUM (MMOL/L) IN SER/PLAS mEq/L 4.4 (06/19/19) 3.8 (05/22/19) 4.5 (05/01/19) Bicarbonate mEq/L 22 (06/19/19) 26 (05/22/19) 26 (05/01/19) 25 OH VITAMIN D ng/mL 44.4 (05/01/19) BUN/CREATININE (MASS RATIO) IN SER/PLAS 11.3 (06/19/19) 9.1 (05/22/19) 20.0 (05/01/19) Calcium mg/dL 9.9 (06/19/19) 9.9 (05/22/19) 9.5 (05/01/19) Calcium Phos Product 39 (06/19/19) 34 (05/22/19) 42 (05/01/19) CALCIUM (MG/DL) CORRECTED FOR ALBUMIN IN SER/PLAS mg/dL 10.4 (06/19/19) 10.5 (05/22/19) 10.0 (05/01/19) PHOSPHATE (MG/DL) IN SER/PLAS mg/dL 3.9 (06/19/19) 3.4 (05/22/19) 4.4 (05/01/19) IPTH pg/mL 199 (06/19/19) 351 (05/01/19) Vascular Access Assessment: Type of access: [email or web address]/2019 Surgeon - Lary GARDNER Advanced needles to 16g on 05/23, advance to 15g now Impression and Plan Continue to challenge EDW, hold BP meds prior to HD to see if allows more UF Now adequate with 15g needles and increased BFR/DFR No other changes today Ernie Pompa MD [ Signed And locked electronically On 07/10/2019 at 11:44:02 AM ] Transcribed: Ernie Pompa ( 07/10/2019 ) documented in this encounter Plan of Treatment Not on filedocumented as of this encounter Visit Diagnoses Not on filedocumented in this encounter
--- OUTSIDE RECORDS SUMMARY | 2021-10-27 05:46 | XMS_ITS | Encounter Summary ---
:1945 Author Organization [facility] Address [address] [place] [address] Care Team Providers Name Role Phone Unavailable Primary Care Provider Unavailable Encounter Details Date Type Department Care Team Description 09/25/2019 Treatment [facility] O Ernie Gómez MD [address] [place] [address] [place], [place] [phone] (Wo rk) Social History Tobacco Use Types Packs/Day Years Used Date Smoking Tobacco: Unknown Comments: Smoking History Info:Patient n ot screened Sex Assigned at Date Recorded Not on file documented as of this encounter Miscellaneous Notes Dialysis Note - Ernie Pompa MD - 09/25/2019 10:54 AM CDT Date: Sep 25, 2019 Patient Name: Shaun Ocampo : 1945 Chart #: [id number] Sex: M This patient was personally seen for a complete visit as part of routine monthly dialysis care. A review of the dialysis treatment, blood pressure, estimated dry weight and recent lab values was made. These were discussed with the patient and staff as necessary. Treatment Data for 09/25/2019 started at:10:17 AM Dialyzer: 180NRe Optiflux Na: 138 mEq/L Bicarb: 26 mEq/L Dialysate: 2.0 K, 2.25 Ca, 1.0 Mg, 100 Dextrose (G2231) Dialysate/Machine Temp (prescribed): 37 C Dialysate/Machine Temp (actual): 37.2 C BFR (prescribed): 550 BFR (actual): 550 Prescribed time: 4:0 EDW: 110.2 kg Access Type: Active (In Use):AVFistula-Standard/Left Upper Arm Pre Dialysis Vitals (for 09/25/2019 10:08 AM ) Pre BP (sit): 168/83 Pre Wt: 112.8 kg Temp: 97.9 F Post Dialysis Vitals (for 09/23/2019 1:44 PM ) Post BP (sit): 137/68 Post Wt: 110.2 kg Current Dialysis Vitals (for 09/25/2019 10:31 AM ) BP (sit): 156/55 AP(-) / DEICER INSPECTOR PNEUMATIC: 212/172 Pulse: 63 Chairside data as of 09/25/2019 10:31 AM Last 3 Treatments 09/23/2019 09/21/2019 09/20/2019 (Absent) EDW (kg) 110.8 110.8 Weight Pre (kg) 112.4 113.6 Weight Post (kg) 110.2 110.6 Dialytic Weight Loss (kg) -2.2 -3 EDW Deviation (kg) -0.6 -0.2 BP Sit Pre 177/70 151/75 BP Sit Post 137/68 135/51 UF Rate (mL/kg/hr) 5 7 Prescribed BFR 550 550 Average Delivered BFR 490 550 Prescribed Treatment Time 4:0 4:0 Actual Treatment Time 03:49 04:06 Last 2 Values 08/23/2019 08/02/2019 Access Flow > 2000 1510 DIRECTOR MARKETING COMMUNICATIONS: Ernie Pompa MD LOCATION: [place] [phone] SCHEDULE: -- 2nd Shift EDW: kg. DIALYZER: HD DURATION: NEEDLE SIZE: ANTICOAG: BATH: QB: ml/min QD: ml/min Subjective Tolerating dialysis well. 09/24: He had infiltration last week, dialyzed [...] Regular rhythm. Edema - 1+ leg edema. improving but still edema, chronic stasis changes Access - AVF intact with needles in place, small bruise, non-aneurysmal Looks much thinner with large amount of fluid removal since starting dialysis Medication List Medication Sig Start Date albuterol [...] made. Treatment and Adequacy Assessment BUN mg/dL 32 (09/18/19) 40 (08/21/19) 29 [...] (08/21/19) 1.3500 (07/24/19) 1.4400 (07/03/19) 1.1400 (06/19/19) Dialysis is adequate. Achieves prescribed time - Yes Achieves prescribed frequency - Yes Continue current prescription. Vascular Access Assessment Type of access: [email or web address]/2019 Surgeon Annita KUMARW Access working well Anemia Assessment HEMOGLOBIN (G/DL) IN BLOOD g/dL 11.5 (09/18/19) 11.6 (09/11/19) 11.1 (09/04/19) 11.3 (08/28/19) 11.3 (08/21/19) PLATELETS 1000/mcL 200 (09/18/19) 208 (08/21/19) 218 [...] and Metabolic Assessment ALBUMIN (G/DL) g/dL 3.8 (09/18/19) 3.2 (08/21/19) 3.2 (07/24/19) 3.4 (06/19/19) 3.3 (05/22/19) Sodium mEq/L 136 (09/18/19) 137 (08/21/19) 137 (07/24/19) 137 (06/19/19) 139 (05/22/19) POTASSIUM (MMOL/L) IN SER/PLAS mEq/L 4.5 (09/18/19) 3.8 (08/21/19) 4.8 (07/24/19) 4.4 (06/19/19) 3.8 (05/22/19) BICARBONATE (CO2) mEq/L 23 (09/18/19) 27 (08/21/19) 24 (07/24/19) 22 (06/19/19) 26 (05/22/19) 25 OH VITAMIN D ng/mL 62.4 (09/18/19) 44.4 (05/01/19) Albumin is below goal. Encourage high-biological value protein intake. Potassium is at goal. Bicarbonate is at goal. Continue same bicarbonate in dialysate. Bone and Mineral Metabolism Assessment Calcium mg/dL 10.3 (09/18/19) 9.7 (08/21/19) 10.0 (07/24/19) 9.9 (06/19/19) 9.9 (05/22/19) CALCIUM (MG/DL) CORRECTED FOR ALBUMIN IN SER/PLAS mg/dL 10.5 (09/18/19) 10.3 (08/21/19) 10.6 (07/24/19) 10.4 (06/19/19) 10.5 (05/22/19) PHOSPHATE (MG/DL) IN SER/PLAS mg/dL 3.7 (09/18/19) 3.5 (08/21/19) 3.5 (07/24/19) 3.9 (06/19/19) 3.4 (05/22/19) CALCIUM PHOSPHORUS PRODUCT, COR 39 (09/18/19) 36 (08/21/19) 37 (07/24/19) 41 (06/19/19) 36 (05/22/19) IPTH pg/mL 167 (09/18/19) 164 (07/24/19) 199 (06/19/19) 351 (05/01/19) Corrected Calcium is above goal. Phosphorous is at goal. Intact PTH is below goal. Third Steel Pourer will adjust binders and vitamin D per protocol and continue to provide dietary education. Stopping tiw calcitriol, discussed with RD Cardiovascular Assessment Blood pressures reviewed and are acceptable. Intradialytic weight gains are appropriate. Estimated dry weight is too high, will decrease. Continue to challenged dry weight ~1 Kg per week goal until find dry weight Transplant Status: Patient is not a candidate. Weight, co-morbidities Resuscitation Status Tolerating dialysis well, no changes to prescription and will continue to challenge EDW with each treatment as tolerated Stop calcitriol Ernie Pompa MD [ Signed And locked electronically On 09/25/2019 at 10:56:44 AM ] Transcribed: Ernie Pompa ( 09/25/2019 ) documented in this encounter Plan of Treatment Not on filedocumented as of this encounter Visit Diagnoses Not on filedocumented in this encounter
--- OUTSIDE RECORDS SUMMARY | 2021-10-27 05:46 | XMS_ITS | Encounter Summary ---
:1945 Author Organization [facility] Address [address] [place] [address] Care Team Providers Name Role Phone Unavailable Primary Care Provider Unavailable Encounter Details Date Type Department Care Team Description 05/22/2019 Treatment [facility] O Ernie Gómez MD [address] [place] [address] [place], [place] [phone] (Wo rk) Social History Tobacco Use Types Packs/Day Years Used Date Smoking Tobacco: Unknown Comments: Smoking History Info:Patient n ot screened Sex Assigned at Date Recorded Not on file documented as of this encounter Miscellaneous Notes Dialysis Note - Ernie Pompa MD - 05/22/2019 12:28 PM CST Date: May 22, 2019 Patient Name: Shaun Ocampo : 1945 Chart #: [id number] Sex: M This patient was personally seen for a complete visit as part of routine monthly dialysis care. A review of the dialysis treatment, blood pressure, estimated dry weight and recent lab values was made. These were discussed with the patient and staff as necessary. Treatment Data for 05/22/2019 started at:11:12 AM Dialyzer: 180NRe Optiflux Na: 138 mEq/L Bicarb: 30 mEq/L Dialysate: 2.0 K, 2.25 Ca, 1.0 Mg, 100 Dextrose (G2231) Dialysate/Machine Temp (prescribed): 37 C Dialysate/Machine Temp (actual): 36.8 C BFR (prescribed): 300 BFR (actual): 300 Prescribed time: 4:0 EDW: 132.5 kg Access Type: Pre Dialysis Vitals (for 05/22/2019 10:57 AM ) Pre BP (sit): 133/83 Pre Wt: 133.5 kg Temp: 97 F Post Dialysis Vitals (for 05/20/2019 3:18 PM ) Post BP (sit): 166/75 Post Wt: 132.1 kg Current Dialysis Vitals (for 05/22/2019 11:12 AM ) BP (sit): n/a AP(-) / NEWS DEPARTMENT INTERN: 231/165 Pulse: n/a Chairside data as of 05/22/2019 11:12 AM Last 3 Treatments 05/20/2019 05/17/2019 05/15/2019 EDW (kg) 132.5 132.5 132.5 Weight Pre (kg) 134.7 134.6 133.5 Weight Post (kg) 132.1 132.3 133.3 Dialytic Weight Loss (kg) -2.6 -2.3 -0.2 EDW Deviation (kg) -0.4 -0.2 0.8 BP Sit Pre 155/86 151/75 133/70 BP Sit Post 166/75 170/78 154/76 UF Rate (mL/kg/hr) 5 4 Prescribed BFR 300 300 300 Average Delivered BFR 300 300 300 Prescribed Treatment Time 4:0 4:0 4:0 Actual Treatment Time 04:04 04:01 04:04 BLEACHER GROUNDWOOD PULP: Ernie Pompa MD LOCATION: [place] [phone] SCHEDULE: -- 2nd Shift EDW: kg. DIALYZER: HD DURATION: NEEDLE SIZE: ANTICOAG: BATH: QB: ml/min QD: ml/min Subjective Tolerating dialysis well. 05/21: He continues to feel better [...] rhythm. Edema - 1+ leg edema. improving Access - AVF with bruising but good [...] tablet Take 1 tablet once a day [place] Saline (sodium chloride) 0.65% drops calcitriol 0.25 [...] made. Treatment and Adequacy Assessment BUN mg/dL 29 (05/15/19) 68 (05/01/19) UREA NITROGEN (MG/DL) IN SER/PLAS - POST DIALYSIS mg/dL 11 (05/15/19) 3 (05/01/19) URR % 62 (05/15/19) 96 (05/01/19) spKt/V Gotch 1.08 (05/15/19) eKdrt/V .95 (05/15/19) spKt/V (Daugirdas II) 1.0700 (05/15/19) Dialysis is not adequate. Achieves prescribed time - Yes Achieves prescribed frequency - Yes Advance needles on 05/23, ok with vascular per review of their note. Also increase DFR to 800 Vascular Access Assessment Type of access: [email or web address]/2019 Surgeon - Lary GARDNER Advancing needles to 16g on 05/23 Anemia Assessment HEMOGLOBIN (G/DL) IN BLOOD g/dL 8.2 (05/15/19) 8.5 (05/10/19) 8.1 (05/01/19) PLATELETS 1000/mcL 104 [...] at goal. Intact PTH is at goal. Carton Catcher will adjust binders and vitamin D per protocol and continue to provide dietary education. Cardiovascular Assessment Blood pressures reviewed and are acceptable. Intradialytic weight gains are appropriate. Estimated dry weight is appropriate. Challenge EDW as BP tolerates, set new EDW today based on what he comes off at if below EDW Transplant Status: Patient is not a candidate. Weight, co-morbidities Resuscitation Status Tolerating dialysis well As above, advancing needles next time to 16g and increasing DFR to 800 to achieve adequacy Challenge EDW Monthly labs being drawn today Ernie Pompa MD [ Signed And locked electronically On 05/22/2019 at 12:31:22 PM ] Transcribed: Ernie Pompa ( 05/22/2019 ) documented in this encounter Plan of Treatment Not on filedocumented as of this encounter Visit Diagnoses Not on filedocumented in this encounter
--- OUTSIDE RECORDS SUMMARY | 2021-10-27 05:47 | XMS_ITS | Encounter Summary ---
:1945 Author Organization [facility] Address [address] [place] [address] Care Team Providers Name Role Phone Unavailable Primary Care Provider Unavailable Encounter Details Date Type Department Care Team Description 05/01/2019 Orders Only [facility] Ernie Guzmán MD [address] [place] [address] [place], [place] [phone] (Wo rk) Social History Tobacco Use Types Packs/Day Years Used Date Smoking Tobacco: Unknown Comments: Smoking History Info:Patient n ot screened Sex Assigned at Date Recorded Not on file documented as of this encounter Plan of Treatment Not on filedocumented as of this encounter Procedures Procedure Name Priority Date/Time Associated Diagnosis Comme nts HD KINETICS Routine 05/01/2019 Results for thi s procedure are i n the results section . SPECIAL CHEMISTRY Routine 05/01/2019 Results fo r this procedure are i n the results section . POST CHEMISTRY Routine 05/01/2019 Results for t his procedure are i n the results section . IMMUNO CHEMISTRY Routine 05/01/2019 Results for this procedure are i n the results section . TRACE ELEMENTS Routine 05/01/2019 Results for t his procedure are i n the results section . HEMATOLOGY Routine 05/01/2019 Results for thi s procedure are i n the results section . CHEMISTRY Routine 05/01/2019 Results for thi s procedure are i n the results section . CHEMISTRY Routine 05/01/2019 Results for thi s procedure are i n the results section . SPECTRA [facility] LAB RESULTS Routine 05/01/2019 Resul ts for this procedure are i n the results section . documented in this encounter Results Spectra [facility] Lab Results (05/01/2019) athologist Signature spKt/V 4.48 [facility] ([place]augirdas II) eKt/V 3.91 [facility] ([place]) Specimen (Source) Anatomical Location Collection Method / Collectio n Time Received Time / Laterality Volume 05/01/2019 05/01/2019 [facility] Ordering Provider LAB BLOOD ORDERABLES Performing Organization Address City/State/ZIP Code Phon e Number [facility] IMMUNO CHEMISTRY (05/01/2019) P athologist Signature Hep B Surface Negative [...] above test result was obtained using Siemens TruckTrackaur XP chemiluminescent method. Results obtaine d with different assay methods or kits cannot be used interchangeably. Specimen (Source) Anatomical Collection Method Collection Time Re ceived Time Location / / Volume Laterality 05/01/2019 05/02/2019 3:03 PM NUTRITION COORDINATOR Resulting Agency Comment Specimen source: Serum Ernie Pompa MD LAB BLOOD ORDERABLES Performing Organization Address City/State/ZIP Code Phon e Number APS SPECTRA [facility] SPECIAL CHEMISTRY (05/01/2019) P athologist Signature Vitamin D, 44.4 30.0 - [facility] 25-OH, Total 100.0 [facility] ng/mL Comment: Vitamin D Status Classification: Deficiency ? <10.0 ng/mL Insufficiency ?10.0-30.0 ng/mL Sufficiency ?30.0-100.0 ng/mL Toxicity ? >100.0 ng/mL Specimen (Source) Anatomical Collection Method Collection Time Re ceived Time Location / / Volume Laterality 05/01/2019 05/02/2019 3:03 PM NUTRITION COORDINATOR Narrative APS SPECTRA [facility] - 05/03/2019 Unless otherwise specified, test(s) performed at: [facility], [address] [place], [place] [id number] SOIL AND PLANT SCIENTIST: Tawanna green M.D. For any questions, please call customer service at FREQUENCY:MONTHLY Resulting Agency Comment Specimen source: Serum Ernie Pompa MD LAB BLOOD BANK TEST ORDERABL ES Performing Organization Address City/[facility] Phon e Number APS SPECTRA [facility] (ABNORMAL) Spectrae Chemistry (05/01/2019) P athologist Signature PTH 351 (H) 16 - 80 [facility] pg/mL [facility] Specimen (Source) Anatomical Collection Method Collection Time Re ceived Time Location / / Volume Laterality 05/01/2019 05/02/2019 8:20 PM NUTRITION COORDINATOR Narrative APS SPECTRA [facility] - 05/03/2019 Unless otherwise specified, test(s) performed at: [facility], [address] [place], [place] [id number] [employer] PLANT SCIENTIST: Tawanna green M.D. For any questions, please call customer service at FREQUENCY:MONTHLY Resulting Agency Comment Specimen source: Plasma Ernie Pompa MD LAB BLOOD ORDERABLES Performing Organization Address City/State/[facility] Phon e Number APS SPECTRA [facility] (ABNORMAL) HEMATOLOGY (05/01/2019) Analysis Performed At Patho logist Time Signature WBC 6.68 4.80 - [facility] 10.80 [facility] 1000/mcL RBC 2.56 (L) 4.70 - [facility]PS [facility]RA 6.10 [facility] mill/mcL Hemoglobin 8.1 (L) 14.0 - [facility] 18.0 g/dL [facility] Hemoglobin x 3 24.3 (L) 42.0 - [facility] 54.0 % [facility] Hematocrit 27.3 (L) 42.0 - [facility] 52.0 % [facility] MCV 107 (H) 80 - 100 A[facility]PECT[facility] fl [facility] MCH 31.7 (H) 27.0 - APS [facility] 31.0 pg [facility] MCHC 29.6 (L) 30.0 - APS [facility]RA 36.0 g/dL [facility] RDW 19.5 (H) 11.5 - APS [facility]RA 14.5 % [facility] Platelets 104 (L) 130 - 400 APS [facility]PECTRA 1000/mcL [facility] Specimen (Source) Anatomical Collection Method Collection Time Re ceived Time Location / / Volume Laterality 05/01/2019 05/02/2019 8:20 PM NUTRITION COORDINATOR Narrative APS SPECTRA [facility] - 05/03/2019 Unless otherwise specified, test(s) performed at: [facility], [address] [place] [address] [employer]ANT SCIENTIST: Tawanna green M.D. For any questions, please call customer service at FREQUENCY:MONTHLY Resulting Agency Comment Specimen source: Blood Ernie Pompa MD LAB BLOOD ORDERABLES Performing Organization Address City/[facility] Phon e Number APS SPECTRA [facility] TRACE ELEMENTS (05/01/2019) P athologist Signature Aluminum <5 0 - 10 A[facility]RA mcg/L [facility] Comment: This test was developed and its performa nce characteristics determined by [facility]. It has not been cleared or approved by the FDA. The laboratory is regulated under CLIA a s qualified to perform high complexity testing. This test is used fo r clinical purposes. It should not be regarded as investigational or fo r research. Specimen (Source) Anatomical Collection Method Collection Time Re ceived Time Location / / Volume Laterality 05/01/2019 05/02/2019 4:05 PM NUTRITION COORDINATOR Narrative APS SPECTRA [facility] - 05/02/2019 Unless otherwise specified, test(s) performed at: [facility], [address] [place] [address] [employer] SCIENTIST: Tawanna green M.D. For any questions, please call customer service at FREQUENCY:MONTHLY Resulting Agency Comment Specimen source: Serum Ernie Pompa MD LAB BLOOD ORDERABLES Performing Organization Address City/[facility] Phon e Number APS SPECTRA [facility] (ABNORMAL) HD KINETICS (05/01/2019) P athologist Signature % Urea 96 (H) 65 - 80 % APS SPECTRA Reduction [facility] Specimen (Source) Anatomical Collection Method Collection Time Re ceived Time Location / / Volume Laterality 05/01/2019 05/02/2019 3:04 PM NUTRITION COORDINATOR Narrative APS SPECTRA [facility] - 05/02/2019 Unless otherwise specified, test(s) performed at: [facility], [address] [id number] SO[employer] PLANT SCIENTIST: Tawanna green M.D. For any questions, please call customer service at FREQUENCY:MONTHLY Resulting Agency Comment Specimen source: Serum Ernie Pompa MD LAB BLOOD ORDERABLES Performing Organization Address City/State/ZIP Code Phon e Number APS SPECTRA [facility] (ABNORMAL) Spectrae Chemistry (05/01/2019) [facility] gist Method Time Signature BUN 68 (H) 6 - 19 APS [facility]PECTRA mg/dL [facility] Creatinine 3.40 (H) 0.60 - APS SPECTRA 1.30 mg/dL [facility] BUN/Creatinine 20.0 10.0 - APS [facility]PECTRA Ratio 20.0 [facility] [...] APS SPECTRA [facility] Calcium Phosphorus Product 42 0 - 54 APS SPECTRA [facility] Calcium Phosporus Product, Cor 44 0 - 54 APS SPECTRA [facility] Alkaline Phosphatase 86 40 - 129 U/L APS SP ECTRA [facility] Total Protein 5.8 (L) 6.0 - 8.5 g/dL APS SPECTRA [facility] Albumin 3.4 (L) 3.5 - 5.2 g/dL [facility]PS S[facility] [place] Globulin, Total 2.4 2.0 - 4.0 g/dL APS SPECT RA [facility] A/G Ratio 1.4 1.0 - 2.0 APS SPECTRA [facility] Magnesium 2.3 1.6 - 2.6 mg/dL [facility]PS [facility] Iron 31 (L) 45 - 160 mcg/dL [facility] UIBC 274 155 - 355 mcg/dL APS SPECTRA [facility] TIBC 305 185 - 515 mcg/dL APS SPECTRA [facility] Iron Saturation (TSat) 10 (L) 20 - 55 % APS SPE CTRA [facility] Ferritin 105 22 - 322 ng/mL APS SPECTRA [facility] [place] Specimen (Source) Anatomical Collection Method Collection Time Re ceived Time Location / / Volume Laterality 05/01/2019 05/02/2019 3:03 PM NUTRITION COORDINATOR Narrative APS SPECTRA [facility] - 05/03/2019 Unless otherwise specified, test(s) performed at: [facility], [address] [place] [address] [employer] PLANT SCIENTIST: Tawanna green M.D. For any questions, please call customer service at FREQUENCY:MONTHLY Resulting Agency Comment Specimen source: Serum Ernie Pompa MD LAB BLOOD ORDERABLES Performing Organization Address City/[facility]/ZIP Code Phon e Number APS SPECTRA [facility] (ABNORMAL) POST CHEMISTRY (05/01/2019) P athologist Signature BUN Post 3 (L) 6 - 19 APS SPECTRA Dialysis mg/dL [facility] Specimen (Source) Anatomical Collection Method Collection Time Re ceived Time Location / / Volume Laterality 05/01/2019 05/02/2019 12:5 1 PM NUTRITION COORDINATOR Narrative APS SPECTRA [facility] - 05/02/2019 Unless otherwise specified, test(s) performed at: [facility], [address] [place] [address] SO[employer] PLANT SCIENTIST: Tawanna green M.D. For any questions, please call customer service at FREQUENCY:MONTHLY Resulting Agency Comment Specimen source: Plasma Ernie Pompa MD LAB BLOOD ORDERABLES Performing Organization Address City/State/ZIP [facility] Phon e Number APS SPECTRA [facility] documented in this encounter Visit Diagnoses Not on filedocumented in this encounter
--- OUTSIDE RECORDS SUMMARY | 2021-10-27 05:47 | XMS_ITS | Continuity of Care Document ---
:1945 Author Organization [facility] Address [address] [address] [place] [address] Phone Care Team Providers Name Role Phone Joce Zamudio MD Unavailable Unavailable Procedures Procedure Date Init Hosp-da E&m Mod Severity Ugi Endo; W/bx /mx Subsqt Hosp-da E&m Minr Compl Init Inpt Cons New/est Mod-hi Sm Intest Endo Not Ileum; Dx ( Small Intestinal Imaging Subsqt Hosp-da E&m Minr Compl Subsqt Hosp-da E&m Minr Compl Init Inpt Cons New/est Mod-hi Colonoscopy Flex; Dx (nov Pro) Ugi Endo; W/bx /mx Advance Directives Directive Yes / No Effective Date File Name No Information Encounters Encounter Practice Location Reason(s) Diagnoses Date Provider Provide rs Description For Visit Copied on Encounter [facility] No Sep- Lizz CAMPBELL Digest[facility] Information [facility]ce. [facility] [place], Endoscopy [address] [address], [address], [address], [id number], [place], [place] [id number], tel:[phone] tel:[phone] Init Hosp-da [facility] No Sep- Lizz CAMPBELL Referr ing E&m Mod [facility] [place] Information 3 Joce. Provider : [facility], Hospital 2 [address] [facility] [place], [address], [address], [address] [place], [place], [place], [place], [address], [id number], [place], [place] [id number], , [place], tel:[phone]. [phone] tel: tel:[phone] Subsqt [facility] Ramon No Desean MARTIN Referring Hosp-da E&m [facility] Information 4-200 Lisa. Provider: [facility], Hosp 9 [address] [facility] Jason [place] [address], [address], R, [address] [place], [place], [place], [address], [id number], [place], [place] [id number], [place], [place], [place]: [place]. [phone] tel: tel: [phone] Init Inpt [facility] Ramon No No Referring Cons New/est [facility] Information 2200 Informat ion Provider: [facility], Hosp [address] [place] [address] Jason [place] [address], R, [address] [place] [address] [place], [place], [address], [id number], [place], [place], tel: [phone] tel:[phone] MNGI Ramon No Nilton CAMPBELL Referring Digestive [facility] 9-[address]. 3001 P rovider: [facility], [address], Cash CAMPBELL [address], [address], [address], [address] [place] [facility] [place], [place], [address] [place] [id number], [id number], [address], [place] tel: tel:+ s, [phone], [phone] . tel:[phone] Subsqt [facility] Ramon No Nesset INVENTORY CLERK Referring Hosp-da E&m [facility] Information 8-[address] Ailyn. 30 01 Provider: [facility], Hosp [address] [place] [address] [place] [address], [address], [address], [address] [place] [facility] [address], [place], [place], [address], [id number], [id number], [place] [facility]. s, [place], tel: tel:[phone]. [phone] tel:[phone] Init Inpt MNGI Ramon No Cash CAMPBELL Referring Cons New/est Dig[facility] Information 7-200 [address]. 3001 Provider: [facility], Hosp [address] [facility], Jason [place] [address], [address], [address] [facility] [address], [place], [place], [address], [id number], [id number], [place] [facility]. s, [place], tel: tel:[phone] tel:[phone] Family History Family Member Type Diagnosis Age At Onset No Information Payers Payer name Insurance type Covered constitution party ID Authorization(s ) [employer] Medicare Advantage [id number] Social History Type Description Quantity Date Captured Comments Sex Male Smoking Status No Information Chief Complaint And Reason For Visit No Information Reason For Referral Reason For Referral No Information Plan Of Treatment Date Type Action Status No Information History Of Present Illness Encounter Date Complaint History Of Present I llness No Information Functional Status Date Functional Assessment No Information Instructions Date Instruction Additional Informati on No Information Assessments Type Assessment Date No Information Patient Care Teams Name Effective Dates (start - stop) Status M helio No Information
== END 2021-10-26 08:26 | disposition home or self-care (01) ==
LOC: WOUND 08:26
PROVIDERS: PCP Family Medicine; Visit Provider Nurse Practitioner Family
DX: I87.312 Chronic venous hypertension (idiopathic) with ulcer of left lower extremity (principal); L97.822 Non-pressure chronic ulcer of other part of left lower leg with fat layer exposed; E11.622 Type 2 diabetes mellitus with other skin ulcer; I87.311 Chronic venous hypertension (idiopathic) with ulcer of right lower extremity; E11.621 Type 2 diabetes mellitus with foot ulcer; L97.518 Non-pressure chronic ulcer of other part of right foot with other specified severity; L97.522 Non-pressure chronic ulcer of other part of left foot with fat layer exposed
CPT/HCPCS: 11042; 97597; 99213

== ENCOUNTER 2021-11-04 08:32 | Outpatient (CLI) | payer MEDICARE, SELFPAY ==
--- OUTSIDE RECORDS SUMMARY | 2021-11-04 08:34 | XMS_ITS ---
:1945 Author Organization [facility], NA DOCUMENT DISCLAIMER The information in the [facility] Continuity of Care Document represents a [...] Date Doxercalciferol Every 5 mcg Intravenous September 17, September 16, Active (Hectorol) Treatment - push 2021 2022 Etelcalcetide Post 7.5 mg Intravenous October A ctive (Parsabiv) Dialysis, 3X - push 2021 Week Heparin Sodium Intermittent 1000 Intravenous March [...] October Ac tive (Venofer) - push 2021 Mircera Every 2 weeks 200 mcg Intravenous October A ctive - push 2021 Etelcalcetide Post 10 mg Intravenous September 27September 10, D iscontinued (Parsabiv) Dialysis, 3X - push 2021 2022 Week Heparin Sodium Bolus, Once, 1999 Intravenous October Discontinued (Porcine) 1,000 Total units - push 2021 Units/mL Systemic treatment minutes 240 Home Medications Medication Instructions Dosage Route Start [...] mg Take by mouth 1 tablet ORAL October 27, Active once a day with 2021 meals Triphrocaps 1 mg Take by mouth 1 capsule ORAL June 23, Active once a day 2019 VITAL SIGNS Post-Treatment Vital Signs Vital Sign Value Date / Time Blood Pressure-sitting 109/41 mmHg November 03, 2021 0 6:49 AM Blood Pressure-standing 116/51 mmHg November 03, 2021 06:49 AM Heart Rate 62 beats per minute November 03, 2021 06:4 9 AM Respiratory Rate 16 breaths per minute November 03, 2021 06 :49 AM Temperature 98.0 deg. F November 03, 2021 06:4 9 AM Weight Vital Sign Value Date / Time Estimated Dry Weight 108.5 kg October 27, 2021 11: 59 PM Pre-Dialysis 111.90 kg November 03, 2021 06:4 9 AM Post-Dialysis 108.30 kg November 03, 2021 06:4 9 AM Other Other Value Date / Time Height 173 cm August 25, 2021 12:00 AM [facility] RESULTS Hematology Result Type Result Value Relevant Reference Interpretation Date Range HGB 9.3 g/dL Males: 14.0 - 18.0 [...] mcg/dL - October 20 Platelets 184 1000/mcL 379-530 7907/mcL - October 20, 2021 Iron 46 mcg/dL Females: 30-160 - October 20 022 mcg/dL Males: 45-160 mcg/dL RDW 17.5 % No Reference range High October provided MCHC 30.3 g/dL 30 - 36 g/dL - October 20, 2021 MCH 32.7 pg 27 - 31 pg/cell High October 20 HCT 32.8 % Males: 42 - 52% Low October 20 Females: 37 - 47% Hemoglobin x 3 27.9 % Male: 14.0 - 18.0 Low October 182021 g/dL; Female: 12.0-16.0 g/dL HGB 9.3 g/dL Males: 14.0 - 18.0 Low October g/dL Females: 12.0 - 16.0 g/dL Metabolic/Renal Result Type Result Value Relevant Reference Interpretation Date Range URR, Calc 71 % 65 - 80% [...] spKt/V (Daugirdas 1.48 No Reference range Normal Octu st 2021 II) provided eKt/V ([place]) 1.29 No Reference range Normal Oct ust 2021 provided Bone/Mineral Result Type Result Value Relevant Reference Interpretation Date Range Phosphorus 2.9 mg/dL 2.6-4.5 mg/dL - October 20 2 Calcium, Total 9.5 mg/dL 8.4-10.2 mg/dL - October 20, 2021 Corrected Ca x P 28 < 55 - October 20, 2021 Product Ca x P Product 28 < 55 - October 20 22 PTH-Intact, Plasma 203 pg/mL 16 to 80 pg/mL High October 27, 2021 Liver/Nutrition Result Type Result Value Relevant Reference [...] 993 mIU/mL < 10 mIU/mL, Non- - Januar 2021 (anti-HBs) Immune Hep B core Ab Negative Negative - March 24 Total (anti-HBc) Hep B Surface Ag Negative Negative - October 20, 2021 (HBsAg) DIALYSIS PRESCRIPTION Conventional Hemodialysis Data Element Value Order Date/Time October 27, 2021 Frequency 3X Week Treatment Days MonWedFri Dialyzer 180NRe Optiflux Treatment Time (Total Minutes) 240 min Blood Flow Rate (mL/min) 400 mL/min Dialysate Flow Rate Manual 800 Estimated Dry Weight 108.5 kg Dialysate Concentrate 2.0 K, 2.5 Ca, 1.0 Mg, 100 D extrose (G2251) Sodium (mEq/L) 138 meq/L Bicarb Machine Setting (mEq/L) 34 meq/L Dialysis Access Hemodialysis-AV Fistula-[place], Left Upper Arm, Other/Unknown Arterial Needle Size 15g1 Venous Needle Size 15g1 IMMUNIZATIONS Vaccine Date Dose Route Status Moderna COVID-19 January 29, 2021 0.25 mL Intramuscular C ompleted Vaccine, Booster HEPLISAV-B, series 4 January 04, 2021 20.0 mcg Intramuscular Completed of 4 FLUZONE High-Dose December 18, 2020 0.7 mL Intramuscular C ompleted Quadrivalent HEPLISAV-B, series 3 November 09, 2020 20.0 mcg Intramuscular Completed of 4 HEPLISAV-B, series 2 October 12, 2020 20.0 mcg Intramuscular C ompleted of 4 HEPLISAV-B, series 1 September 07, 2020 20.0 mcg Intramuscular C ompleted of 4 Moderna COVID-19 May 11, 2020 0.5 mL Intramuscular C ompleted Vaccine, Dose 2 of 2 Moderna COVID-19 April 17, 2020 0.5 mL Intramuscular Co mpleted Vaccine, Dose 1 of 2 [id number], October 30, 2019 40.0 mcg Intramuscular Com pleted series 4 of 4 MIJZVAS-I-DTARA, July 03, 2019 40.0 mcg Intramuscular Comp leted series 3 of 4 [id number], June 03, 2019 40.0 mcg Intramuscular Comp leted series 2 of 4 [id number], May 03, 2019 40.0 mcg Intramuscular C ompleted series 1 of 4 TRANSPLANT WAITLIST STATUS No Information on Transplant Waitlist Status ADVANCE DIRECTIVES Directive Description Ordered By Effective Date Resuscitation status Full Code Herman Figueredo Oct 21 2 DIALYSIS TREATMENTS Conventional Hemodialysis Date Pre-Treatment Post-Treatment Duration BFR Dialysate Dialyzer Dialysis Meds Vitals Vitals (hr) (mL/min) Access Admin October Weight 112.00 Weight 108.00 04:01:00 410 2.0 K, 180nre Hemodial ysis-AV Fistula-Standard, Left Upper Arm, Other/Unknown Doxercalciferol (Hectorol); 5mcg,Intravenous - push 12, kg kg 2.5 Ca, Optiflux Heparin S odium (Porcine) 1,000 Units/mL Systemic; 1000units,Intravenous - push 2021 1.0 Mg, Heparin Sodi um (Porcine) 1,000 Units/mL Systemic; 2000units,Intravenous - push 100 Dextrose (G2251) Blood Pressure-sitting 110/69 mmHg Blood Pressure-sitting 92 /29 mmHg Blood Pressure-standing 97/52 mmHg Blood Pressure-standing 118/41 mmHg Heart Rate 65 beats per Heart Rate 63 beats per minute minute Respiratory Rate 20 breaths per Respiratory Rate 18 breaths per minute minute Temperature 96.3 deg. F Temperature 96.8 deg. F October Weight 112.60 Weight 108.50 04:00:00 410 2.0 K, 180nre Hemodial ysis-AV Fistula-Standard, Left Upper Arm, Other/Unknown Doxercalciferol (Hectorol); 5mcg,Intravenous - push 15, kg kg 2.5 Ca, Optiflux Etelcalce tide (Parsabiv); 10mg,Intravenous - push 2022 1.0 Mg, Heparin Sodi um (Porcine) 1,000 Units/mL Systemic; 1000units,Intravenous - push 100 Heparin Sodium (Porcine) 1,000 Units/mL Systemic; 2000units,Intravenous - push Dextrose Iron Sucros e (Venofer); 50mg,Intravenous - push (G2251) Blood Pressure-sitting 100/38 mmHg Blood Pressure-sitting 10 8/46 mmHg Blood Pressure-standing 121/50 mmHg Blood Pressure-standing 113/49 mmHg Heart Rate 88 beats per Heart Rate 62 beats per minute minute Respiratory Rate 16 breaths per Respiratory Rate 16 breaths per minute minute Temperature 97.1 deg. F Temperature 97.0 deg. F October Weight 111.90 Weight 108.30 04:00:00 410 2.0 K, 180nre Hemodial ysis-AV Fistula-Standard, Left Upper Arm, Other/Unknown Doxercalciferol (Hectorol); 5mcg,Intravenous - push 17, kg kg 2.5 Ca, Optiflux Etelcalce tide (Parsabiv); 7.5mg,Intravenous - push 2022 1.0 Mg, Heparin Sodi um (Porcine) 1,000 Units/mL Systemic; 1000units,Intravenous - push 100 Heparin Sodium (Porcine) 1,000 Units/mL Systemic; 2000units,Intravenous - push Dextrose (G2251) Blood Pressure-sitting 91/36 mmHg Blood Pressure-sitting 10 9/41 mmHg Blood Pressure-standing 106/50 mmHg Blood Pressure-standing 116/51 mmHg Heart Rate 79 beats per Heart Rate 62 beats per minute minute Respiratory Rate 16 breaths per Respiratory Rate 16 breaths per minute minute Temperature 97.5 deg. F Temperature 98.0 deg. F
--- OUTSIDE RECORDS SUMMARY | 2021-11-04 08:35 | XMS_ITS | Encounter Summary ---
:1945 Author Organization [place] Address [address] [place] [address] Care Team Providers Name Role Phone Liban Leos Primary Care Provider Ernie Pompa MD Unavailable Reason for Visit Reason Comments Hypotension Auth/Cert Specialty Diagnoses / Procedures Referred By Contact Refer red To Contact Med Surg Diagnoses UGI bleed UGI bleed 5 Medical Surgical [address] [place], [place] [address] Phone: Fax: Referral ID Status Reason Start Date Expiration Date Visits Requ ested Visits Authorized [id number] 1 1 Encounter Details Date Type Department Care Team Description 10/08/2021 - Hospital Encounter [facility] Florentino Ragsdale MD [facility] [address] [place] [address] UGI bleed 10/11/2021 [place] [address] Medical Fadi Viveros, DO [address] [place] [address] Surgical Dallin Smions MD [facility] [address] [place] [address] [address] Burt MD [facility] [address] [place], [place] [id number] [place] [address] Social History Tobacco Use Types [...] daily fluticasone (FLONASE) 50 MCG/ACT nasal spray Warnock 1 spray in nostril daily fluticasone-salmeterol (ADVAIR [...] ulcer and??morbid obesity??who??presents to the ED from [place] [facility] due to concerns of hematemesis and melanotic stool. He had just finished HD (took 1.2L) and presented to [place] ED due to concerns of dizziness and hematemesis. ?? Work up at [place] [facility] showed hgb of 7.5 and soft pressures in the 100's. CT abd pelvis showed normal distal esophagus, stomach and normal liver. No symptoms of obstruction or mass. There were moderate ascites in the dependent abdomen. He received NS bolus (500cc) and 1 unit(s) PRBC and transferred to [facility] ED. Work up in our ED [...] is something he should revisit with his rn concurrent review. He does also have a history of [...] was: 35 Minutes Dallin Farah DO MPH [facility] Hospitalist [facility] [place] [address] 10/11/2021 documented in this encounter Medications at Time of Discharge Medication Sig Dispensed Refills Start Date End Date allopurinol (ZYLOPRIM) Take 100 mg by mouth 0 100 MG tablet daily atorvastatin (LIPITOR) Take 20 mg by mouth 0 11/19 20 MG tablet daily fluticasone (FLONASE) 50 Warnock 1 spray in 0 12/15 MCG/ACT nasal [...] walker and gait belt, denies pain, GREY, [id number] on RA. VSS, continues to be anuric. [...] checked every 4 hours. Outpatient Dialysis at [facility] Post treatment report given to [...] as tolerate. No heparin. Plan discussed with communications assistant and patient at the bedside. Interval History: [...] medications, labs and imaging. Frederick Alcaraz MD [facility] - Nephrology Office phone :[phone] Pager: [phone] Jovita Blackmon RN - 10/11/2021 7:05 AM [...] morbid obesity??who presents to the ED from [place] [facility] due to concerns of hematemesis and melanotic stool. He had just finished HD (took 1.2L) and presented to [place] [facility] due to concerns of dizziness and hematemesis. ?? Work up at [place] [facility] showed hgb of 7.5 and soft pressures in the 100's. CT abd pelvis showed normal distal esophagus, stomach and normal liver. No symptoms of obstruction or mass. There were moderate ascites in the dependent abdomen. He received NS bolus (500cc) and 1 unit(s) PRBC and transferred to [facility] ED. Work up in our ED [...] past 24 hour(s)). Dallin Farah DO MPH [facility] Hospitalist [facility] [place] [address] 10/10/2021 Terry Wolfe MD - 10/10/2021 9:14 [...] mcg/hr (10/09/21 1126) Current active medications and [employer] medications reviewed, see medication list for details. [...] results for input(s): MAG in the last 95535 hours. No results for input(s): PHOS in the last 02514 hours. Recent Labs Lab Test 10/10/21 0722 [...] morbid obesity??who presents to the ED from [place] [facility] due to concerns of hematemesis and melanotic stool. He had just finished HD (took 1.2L) and presented to [place] [facility] due to concerns of dizziness and hematemesis. ?? Work up at [place] [facility] showed hgb of 7.5 and soft pressures in the 100's. CT abd pelvis showed normal distal esophagus, stomach and normal liver. No symptoms of obstruction or mass. There were moderate ascites in the dependent abdomen. He received NS bolus (500cc) and 1 unit(s) PRBC and transferred to [facility] ED. Work up in our ED [...] past 24 hour(s)). Dallin Farah DO MPH [facility] Hospitalist [facility] [place] [address] 10/09/2021 documented in this encounter H&P Notes Layne Rossi PA-C - 10/08/2021 9:27 PM CDT [facility] Admission History and Physical Examination NAME: [...] morbid obesity??who presents to the ED from [place] [facility] due to concerns of hematemesis and melanotic stool. He had just finished HD (took 1.2L) and presented to [place] ED due to concerns of dizziness and hematemesis. Work up at [place] [facility] showed hgb of 7.5 and soft bps in the 100's. CT abd pelvis showed normal distal esophagus, stomach and normal liver. No sxs of obstruction or mass. There were moderate ascites in the dependent abd. He received NS bolus (500cc) and 1u PRBC and transferred to [facility] ED. Work up in our ED [...] morbid obesity??who presents to the ED from [place] [facility] due to concerns of hematemesis and melanotic stool. He had just finished HD (took 1.2L) and presented to [place] [facility] due to concerns of dizziness and hematemesis. Work up at [place] [facility] showed hgb of 7.5 and soft bps in the 100's. CT abd pelvis showed normal distal esophagus, stomach and normal liver. No sxs of obstruction or mass. There were moderate ascites in the dependent abd. He received NS bolus (500cc) and 1u PRBC and transferred to [facility] ED. Work up in our ED [...] 50 MCG/ACT nasal spray Yes Yes Sig: Warnock 1 spray in nostril daily fluticasone-salmeterol (ADVAIR [...] -- 16 AST -- 15 Layne MARTIN-C [facility] Medicine October 08, 2021 Securely message with the BuildFax Console (learn more here) Text page via Lesson Prep Paging/Directory Associated attestation - Fadi Viveros DO [...] 11:33 AM CDTAssociated Order(s): GASTROENTEROLOGY IP CONSULT [facility] Gastroenterology Consultation Joce Zamudio MD Patient [...] He had an EGD June 28 at [facility]. Preoperative indication was Brannon's surveillance. 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 Biopsies were negative for Brannon's but did show esophagitis. Stomach showed diffuse gastritis with old blood consistent with erosive gastritis. Moderate duodenitis was noted. This was confirmed on biopsy and suspected be due to nonsteroidals likely aspirin. He reports an EGD in the remote past at [facility] that showed ulcers. He has ascites [...] Medication Sig Last Dose Taking? Auth Provider Manager Database End Date allopurinol (ZYLOPRIM) 100 MG tablet [...] Yes fluticasone (FLONASE) 50 MCG/ACT nasal spray Warnock 1 spray in nostril daily 10/07/2021 at [...] AST 15 ALKPHOS 116 Joce Zamudio MD, [facility] [phone] Terry Wolfe MD - 10/09/2021 10:29 AM CDT Consult Date: 10/09/2021 REQUESTING PHYSICIAN: Dallin Farah MD. BOILER TESTER: Dallas Wolfe MD. REASON FOR CONSULTATION: End-stage [...] [place] REVIEW OF SYSTEMS: He feels relatively well [...] MD MT: ETREMT Name: JONATAN MEJIA. Account: [id number] : 1945 Consult Date: 10/09/2021 Document: [id number] Terry Wolfe MD - 10/09/2021 10:24 AM CDTAssociated Order(s): NEPHROLOGY IP CONSULT See dictation. Confirmation # [id number]. documented in this encounter ED Notes Essence Osuna RN - 10/09/2021 1:16 PM CDT Pt received one unit of RBC this morning, tolerated well, no transfusion reaction. Stepdaughter Melanie jin, aware of patient transfer to [facility]. Advanced to clear liquid diet, tolerating well. Pt will be NPO at midnight for EGD on 10/10. Kaylee Trejo RN - 10/08/2021 11:05 PM CDT [facility] ED Nurse Handoff Report Jonatan Mejia [...] X 1. Lift room needed:No. Bariatric: No Conductor Yard Needed: No Isolation: No. Infection: Not Applicable. [...] Brianna, , and informed her of admission [facility] boarding status. She will visit [...] - 10/08/2021 6:30 PM CDT sent from [facility] ER. Dialysis patient with hypotension today. Given 500ml and 1 unit PRBC at [facility]. Florentino Ragsdale MD - 10/08/2021 6:23 PM [...] RN Pharmacy-Admission Medication History - Erlin Dodd, [facility] - 10/08/2021 10:14 PM CDT Admission medication history interview status for this patient is complete. See [facility] admission navigator for allergy information, prior to admission medications and immunization status. Medication history interview done, indicate source(s): Patient Medication history resources (including written lists, pill bottles, clinic record): Janice Pillbox Pharmacy: [id number] - [place], [place] - [address] [facility] [phone] Changes made to [employer] medication list: Added: ALL Actions taken by pharmacist (provider contacted, etc):None Additional medication history information:None Medication reconciliation/reorder completed by provider prior to medication history? No Prior to Admission medications Medication Sig Last Dose Taking? Auth Provider Mcc End Date allopurinol (ZYLOPRIM) 100 MG tablet [...] Yes fluticasone (FLONASE) 50 MCG/ACT nasal spray Warnock 1 spray in nostril daily 10/07/2021 at [...] Diagnosis HEMODIALYSIS SINGLE TREATMENT Routine 10/11/2021 SETUP ([facility]) 4:33 PM CDT HEMODIALYSIS DIALYZER ([facility]) Routine 10/11/2021 2:28 PM CDT IP TERMINATION [...] B surface antigen (10/11/2021 7:46 AM CDT) [facility] Method Time Signature Hepatitis B Nonreactive [...] e Number [facility] C[facility]/PROT/ENDO [facility] [place] [address] Core/Prot/Endo [address] [facility] [address] Building, Room 3-580 (ABNORMAL) CBC with platelets (10/11/2021 6:36 AM CDT) [facility] Method Time Signature WBC Count 7.1 [...] City/State/ZIP Code Phon [place] [address] Care Lab [address] Lab (1st floor, no room number) (ABNORMAL) Basic metabolic panel (10/11/2021 6:36 AM CDT) [facility] Method Time Signature Sodium 134 133 [...] and gender (Brigette et al., NEJM, DOI: 10.1056/[id number]) Specimen Anatomical Collection Method / Collection Time Recei annie Time (Source) Location / Volume Laterality Blood STRUCTURE OF RIGHT Venipuncture / 10/11/2021 6:36 2 07/2021 6:42 HAND / Unknown Unknown AM CDT AM CDT Dallin Farah DO LAB - BLOOD ORDERABLES Performing Organization Address City/State/ZIP Code [place] [address] Care Lab [address] Lab (1st floor, no room number) [...] LAB - BEAKER POCT Performing Organization Address City/[facility]/ZIP Code Phon e [place] [address] Care Lab [address] Lab (1st floor, no room number) Surgical Pathology Exam (10/10/2021 8:58 AM CDT) Component Value Ref Test Analysis Performed Pathologis t Range Method Time At Signature Case Report Surgical Pathology Report ? Case: [id number] ? Authorizing Provider: ??Carb allo, Joce ? Collected: ? 10/10/2021 08:58 AM ? 2 8:22 AM LABORA TORY ? MD Edgard ? CDT [facility] ?? Received: ?10/10/2021 09:42 AM ? Main [...] entirely submitted in 1 cassette. (MARIO Saldaña [facility]) Microscopic Microscopic examination Description was performed. 2 8:22 AM LABORATORY CDT Special -Negative for H. Pylori orga nisms on immunohistochemical stains. All controls stain appropriately. RH Stains 2 8:22 AM LABORATORY CDT Performing The technical component Labs of this testing was 2 8:22 AM LABORATORY completed at [facility] Case Images 2 8:22 AM [...] Address City/State/ZIP Code [place] [address] Care Lab [address] [facility] Lab (1st floor, no room number) UPPER GI ENDOSCOPY (10/10/2021 8:18 AM CDT) Component Value Ref Test Analysis Performed At [facility] Range Method Time Signature [facility] RADIOLOGY Endoscopy RESULTS Patient Name: Jonatan Mejia ? Procedure Date: 09/18 8:18 AM ? Account Num flako: [id number] Date of : 1945 ?Admit Type: Inp [...] Model ?# [id number]-H190, Endora # 205, SN #[id number] was ?introduced through the mouth, and advanced [...] Note Initiated On: 10/10/2021 8:18 AM MRN: ?[id number] Procedure Date: ? 10/10/2021 8:18:14 AM Total [...] CBC with platelets (10/10/2021 7:22 AM CDT) [facility] Method Time Signature WBC Count 7.2 [...] City/State/ZIP Code [place] [address] Care Lab [address] Lab (1st floor, no room number) (ABNORMAL) Basic metabolic panel (10/10/2021 7:22 AM CDT) [facility] Method Time Signature Sodium 132 (L) [...] and gender (Brigette et al., NEJM, DOI: 10.1056/[id number]) Specimen Anatomical Collection Method / Collection Time Recei annie Time (Source) Location / Volume Laterality Blood STRUCTURE OF RIGHT Venipuncture / 10/10/2021 7:22 07/2 06/2021 7:31 UPPER LIMB / Unknown AM CDT AM CDT Unknown Dallin Farah DO LAB - BLOOD ORDERABLES Performing Organization Address City/State/ZIP Code [place] [address] Care Lab [address] [...] LAB - BLOOD ORDERABLES Performing Organization Address City/[facility]/ZIP [place] [address] Care Lab [address] Lab (1st floor, no room number) [...] LAB - BLOOD ORDERABLES Performing Organization Address City/[facility]/ZIP [place] [address] Care Lab [address] Lab (1st floor, no room number) [...] LAB - BLOOD ORDERABLES Performing Organization Address City/[facility]/ZIP [place] [address] Care Lab [address] Lab (1st floor, no room number) Transfuse red blood cells (unit) No special requirements (10/09/2021 11:51 AM CDT) Dallin Simons MD BLOOD TRANSFUSION ORDERABLES Transfuse red blood cells (unit), 1 Units No special requirements (10/09/2021 11:51 AM CDT) Dallin Simons MD BLOOD TRANSFUSION ORDERABLES (ABNORMAL) CBC with platelets (10/09/2021 9:12 AM CDT) [facility] gist Method Time Signature WBC Count [...] City/State/ZIP Code [place] [address] Care Lab [address] Lab (1st floor, no room number) (ABNORMAL) Basic metabolic panel (10/09/2021 9:12 AM CDT) [facility] Method Time Signature Sodium 134 133 [...] and gender (Brigette et al., NEJM, DOI: 10.1056/[id number]) Specimen Anatomical Collection Method / Collection Time Recei annie Time (Source) Location / Volume Laterality Blood STRUCTURE OF RIGHT Venipuncture / 10/09/2021 9:12 07/2 05/2021 9:34 HAND / Unknown Unknown AM CDT AM CDT Layne Rossi PA-C LAB - BLOOD ORDERABLES Performing Organization Address City/State/ZIP Code [place] [address] Care Lab [address] Lab (1st floor, no room number) Prepare red blood cells (unit) (10/09/2021 6:52 AM CDT) [facility] Method Time Signature CROSSMATCH Compatible RH BLOOD BANK UNIT ABO/RH O Neg RH BLOOD BANK Unit Number [id number] RH BLOOD BANK Unit Status Transfused RH BLOOD BANK Blood Red Blood Cells RH BLOOD Component Type BANK Product Code [id number] RH BLOOD BANK CODING SYSTEM [id number] RH BLOOD BANK UNIT TYPE ISBT 9500 RH BLOOD BANK ISSUE DATE AND [id number] RH BLOOD TIME BANK Specimen (Source) Anatomical Collection Method Collection Time Re ceived Time Location / / Volume Laterality 10/09/2021 6:52 AM CDT Dallin Simons MD BLOOD BANK PRODUCT ORDERABLE S Performing Organization Address City/State/ZIP Code Phon e Number RH BLOOD BANK [address] [place] [address] Transfuse red blood cells (unit) No special [...] RESULTS Atrial Rate 39 BPM RADIOLOGY RESULTS MI Interval ms RADIOLOGY RESULTS QRS Duration 126 ms RADIOLOGY RESULTS QT 442 ms RADIOLOGY RESULTS QTc 477 ms RADIOLOGY RESULTS P [place] degrees RADIOLOGY RESULTS R AXIS 107 degrees RADIOLOGY RESULTS T [place] 33 degrees RADIOLOGY RESULTS Interpretation Atrial fibrillation RADIO LOGY ECG Right bundle branch block RESU LTS Abnormal ECG No previous ECGs available Confirmed by - EMERG[facility]Y [place] PHYSICIAN ([id number]), order editor ANDRÉS HATCH ([id number]) on 10/11/2021 6:42:29 AM Specimen Anatomical Collection Method Collection Time Receive d Time (Source) Location / / Volume Laterality 10/09/2021 12:52 10/11/2021 6:42 AM CDT AM CDT Layne Ray Rossi PA-C ECG ORDERABLES Performing Organization Address City/State/ZIP Code Phon e Number RADIOLOGY RESULTS Prepare red blood cells (unit) (10/08/2021 11:46 PM CDT) [facility] gist Method Time Signature CROSSMATCH Compatible RH BLOOD BANK UNIT ABO/RH O Neg RH BLOOD BANK Unit Number [id number] RH BLOOD BANK Unit Status Transfused RH BLOOD BANK Blood Red Blood Cells RH BLOOD Component Type BANK Product Code [id number] RH BLOOD BANK CODING SYSTEM [id number] RH BLOOD BANK UNIT TYPE ISBT 9500 RH BLOOD BANK ISSUE DATE AND [id number] RH BLOOD TIME BANK Specimen (Source) Anatomical Collection Method Collection Time Re ceived Time Location / / Volume Laterality 10/08/2021 11:46 PM CDT Layne Rossi PA-C BLOOD BANK PRODUCT ORDERABLE S Performing Organization Address City/State/ZIP Code Phon e Number RH BLOOD BANK [address] [place] [address] (ABNORMAL) Hemoglobin (10/08/2021 10:47 PM CDT) athologist [...] City/State/ZIP Code [place] [address] Care Lab [address] [facility] Lab (1st floor, no room number) [...] LAB - BEAKER POCT Performing Organization Address City/[facility]/ZIP Code Phon [place] [address] Care Lab [address] Lab (1st floor, no room number) [...] the Xpert Xpress SARS-CoV-2 Assay on the Web Designed [employer]. A dditional information about this [...] COVID-19. This test was validated by the [facility]. This laboratory is certified under the Clinical Laboratory Improvement Amendments of 1988 (CLIA-88) as qualified to perform high complexity laboratory testing. Florentino Ragsdale MD LAB - MICRO GENERAL ORDERABL ES Performing Organization Address City/[facility]/ZIP Code [place] [address] Care Lab [address] Lab (1st floor, no room number) [...] Address City/State/ZIP Code [place] [address] Care Lab [address] Lab (1st floor, no room number) [...] Address City/State/ZIP Code [place] [address] Care Lab [address] Lab (1st floor, no room number) [...] City/State/ZIP Code [place] [address] Care Lab [address] Lab (1st floor, no room number) Adult Type and Screen (10/08/2021 7:02 PM CDT) [facility] [employer] Method Time Signature ABO/RH(D) O NEG 10/08/2021 RH BLOOD 6:39 PM CDT BANK Antibody Negative Negative 10/08/2021 RH BLOOD Screen 6:39 PM CDT BANK SPECIMEN [id number] 10/08/2021 RH BLOOD EXPIRATION 6:39 PM CDT BANK DATE Specimen Anatomical Collection Method / Collection Time Recei annie Time (Source) Location / Volume Laterality Blood STRUCTURE OF RIGHT Venipuncture / 10/08/2021 7:02 09/18 7:10 UPPER LIMB / Unknown PM CDT PM CDT Unknown Florentino Ragsdale MD LAB - BLOOD BANK TEST ORDER Performing Organization Address [facility]/ZIP Code Phon e Number RH BLOOD BANK [address] [place] [address] (ABNORMAL) Comprehensive metabolic panel (10/08/2021 7:02 PM CDT) [facility] [employer] Method Time Signature Sodium 136 133 - [...] and gender (Brigette et al., NEJM, DOI: 10.1056/[id number]) Specimen Anatomical Collection Method / Collection Time Recei annie Time (Source) Location / Volume Laterality Blood STRUCTURE OF RIGHT Venipuncture / 10/08/2021 7:02 09/18 7:10 UPPER LIMB / Unknown PM CDT PM CDT Unknown Florentino Ragsdale MD LAB - BLOOD ORDERABLES Performing Organization Address City/State/ZIP Code [place] [address] Care Lab [address] [facility] Lab (1st floor, no room number) [...] (ROCEPHIN) 2 g vial to attach to [facility] Bag 8:34 PM CDT 2 g NS [...] MIN PRN, op ioid reversal, Starting on [place] 10/10/21 at 1011, Administer intravenous route when [...] Provider: Melanie Rodriguez, [id number] (Given - Provider: Araeclis Goldstein, OVI) 1 g, Oral, 3 TIMES [...] MIN PRN, op ioid reversal, Starting on [place] 10/10/21 at 1011, Administer intravenous route when [...] 2 MIN PRN, opioid reversal, Starting on [place] 10/10/21 at 1011, Administer intramuscular if an [...] 0143 documented in this encounter Care Teams Book Reviewer Relationship Specialty Start Date End Date Liban Leos PCP - General Family Medicine 10/08/21 [address] [place] [address] Ernie Pompa MD MD Nephrology 10/08/21 [address] [place] [address] documented as of this encounter
--- OUTSIDE RECORDS SUMMARY | 2021-11-04 08:35 | XMS_ITS | Encounter Summary ---
:1945 Author Organization [place] Address [facility] [place] [address] Care Team Providers Name Role Phone Liban Leos Primary Care Provider Ernie Pompa MD Unavailable Reason for Referral Care Coordination (Routine: Next available opening) - Pending Review Specialty Diagnoses / Procedures Referred By Contact Refer red To Contact Diagnoses Other specified counseling Liban Leos [address] [place] [address] Referral ID Status Reason Start Date Expiration Date Visits V isits Requested Authorized [id number] Pending 10/12/2021 10/12/2022 1 1 Review Encounter Details Date Type Department Care Team Description 10/12/2021 Orders Only [facility] [address] Other specified Care Coordination [address] counseling [address] [place] [address] [place] [address] Social History Tobacco Use Types [...] Type Priority Associated Diagnoses Order S [facility] Referral Routine: Next Other specified Expected: Discharge - available opening counseling 10/12/2021 Referral to CC (Approximate) , Expires: 10/12/2022 documented as of this encounter Visit Diagnoses Diagnosis Other specified counseling documented in this encounter Care Teams Creping Machine Operator Relationship Specialty Start Date End Date Liban Leos PCP - General Family Medicine 10/08/21 [address] [place] [address] Ernie Pompa MD MD Nephrology 10/08/21 [address] [place] [address] documented as of this encounter
--- OUTSIDE RECORDS SUMMARY | 2021-11-04 08:35 | XMS_ITS | Encounter Summary ---
:1945 Author Organization [place] Address [address] [place] [address] Care Team Providers Name Role Phone Liban Leos Primary Care Provider Ernie Pompa MD Unavailable Reason for Visit Auth/Cert Specialty Diagnoses / Procedures Referred By Contact Refer red To Contact Med Surg Diagnoses UGI bleed UGI bleed Rh 5 Medical Surgical [address] [place], [place] [address] Phone: Fax: Referral ID Status Reason Start Date Expiration Date Visits Requ ested Visits Authorized [id number] 1 1 Encounter Details Date Type Department Care Team Description 10/10/2021 Anesthesia Event [facility] Olvin Mosley sabine pass PeriOp Services MD [place] [address] [place], [place] ANESTHESIA [address] [address] [facility] [place], [place] [address] Anesthesia Record Procedure Summary Procedure Name Responsible Anesthesia Start Anesthesia Stop Anesthesiologist Time Time ESOPHAGOGASTRODUODENOSCOPY Herman Mosley 10/10/21 0842 09/18 07/09 0918 biopsies (N/A Mouth) MD [place] Events Date Time Event Comment 10/10/2021 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 The f irst vital signs recorded are pre- inducti on. Yamilka Bear APRN AQUACULTURAL WORKER SUPERVISOR 0845 An Start Data 0857 Present 0912 [...] unvalidated device data. Electronically Signed By: Herman Mosely MD October 10, 2021 10:22 AM Anesthesia [...] 0918 documented in this encounter Care Teams Consumer Advocate Relationship Specialty Start Date End Date Liban Leos PCP - General Family Medicine 10/08/21 [address] [place] [address] Ernie Pompa MD MD Nephrology 10/08/21 [address] [place] [address] documented as of this encounter
--- OUTSIDE RECORDS SUMMARY | 2021-11-04 08:35 | XMS_ITS | Clinical Summary ---
:1945 Author Organization [facility] Address [address] [place] [address] Care Team Providers Name Role Phone Liban [...] (LIPITOR) 20 MG mouth daily tablet fluticasone [place] 1 spray 0 12/15/2020 Act joe (FLONASE) [...] counseling Liban Gruber 10/10/2021 Anesthesia Event Surgery [facility], Herman Lazo MD 10/10/2021 Surgery Surgery Lizz, ESOPHAGOGASTROD UODENOSCOPY Joce Rene MD 10/08/2021 [facility] Med Surg [place], UGI bleed [...] Diagnosis HEMODIALYSIS SINGLE TREATMENT Routine 10/11/2021 SETUP ([facility]) 4:33 PM CDT HEMODIALYSIS DIALYZER ([facility]) Routine 10/11/2021 2:28 PM CDT IP [...] B surface antigen (10/11/2021 7:46 AM CDT) [facility] Method Time Signature Hepatitis B Nonreactive Nonreactive [...] e Number [facility] CORE/PROT/ENDO [facility]ty [place], [place] [address] Core/Prot/Endo [address] [facility] [address] Building, Room 3-580 (ABNORMAL) Basic metabolic panel (10/11/2021 6:36 AM CDT)Only the most recent of 3 resultswithin the time period is included. [facility] Method Time Signature Sodium 134 133 - [...] and gender (Brigette et al., NEJ, DOI: 10.1056/[id number]) Specimen Anatomical Collection Method / Collection Time Recei annie Time (Source) Location / Volume Laterality Blood STRUCTURE OF RIGHT Venipuncture / 10/11/2021 6:36 07/2 07/2021 6:42 HAND / Unknown Unknown AM CDT AM CDT Dallin Farah DO LAB - BLOOD ORDERABLES Performing Organization Address City/State/[place] [phone] Care Lab [address] Lab (1st floor, no room number) (ABNORMAL) CBC with platelets (10/11/2021 6:36 AM CDT)Only the most recent of3 resultswithin the time period is included. [facility] gist Method Time Signature WBC Count 7.1 [...] Organization Address City/State/[place] [phone] Care Lab [address] Lab (1st floor, no room number) [...] AM CDT AM CDT Rhys Duarte MD [facility] POCT Performing Organization Address City/State/ZIP Code Phon e [place] [address] Care Lab [address] Lab (1st floor, no room number) Surgical Pathology Exam (10/10/2021 8:58 AM CDT) Component Value Ref Test Analysis Performed Pathologis t Range Method Time At Signature Case Report Surgical Pathology Report ? Case: [id number] ? Authorizing Provider: ??Carb allo, Joce ? Collected: ? 10/10/2021 08:58 AM ? 2 8:22 AM LABORA TORY ? MD Edgard ? CDT Ordering Location: ? Aravind zapien [facility] [place] ?? Received: ?10/10/2021 09:42 AM ? [...] was 2 8:22 AM LABORATORY completed at [facility] Laboratory Case Images 2 8:22 [...] Address City/State/ZIP Code [place] [address] Care Lab [address] Lab (1st floor, no room number) UPPER GI ENDOSCOPY (10/10/2021 8:18 AM CDT) Component Value Ref Test Analysis Performed At Patholo gist Range Method Time Signature Upper GI [facility] RADIOLOGY Endoscopy RESULTS Patient Name: Shaun Ocampo ? Procedure Date: 09/18 8:18 AM ? Account Num flako: [id number] Date of : 1945 ?Admit Type: Inp [...] Model ?# [id number], Endora # 205, SN #[id number] was ?introduced through the mouth, and advanced [...] Note Initiated On: 10/10/2021 8:18 AM MRN: ?[id number] Procedure Date: ? 10/10/2021 8:18:14 AM Total [...] City/State/ZIP Code [place] [address] Care Lab [address] [...] O Neg RH BLOOD BANK Unit Number [id number] RH BLOOD BANK Unit Status Transfused RH BLOOD BANK Blood Red Blood Cells RH BLOOD Component Type BANK Product Code [id number] RH BLOOD BANK CODING SYSTEM [id number] RH BLOOD BANK UNIT TYPE ISBT 9500 RH BLOOD BANK ISSUE DATE AND [id number] RH BLOOD TIME BANK Specimen (Source) Anatomical Collection Method Collection Time Re ceived Time Location / / Volume Laterality 10/09/2021 6:52 AM CDT Dallin Simons MD BLOOD BANK PRODUCT ORDERABLE S Performing Organization Address City/[facility]/ZIP Code Phon e Number RH BLOOD BANK [address] [place] [address] EKG 12-lead, tracing only (10/09/2021 12:52 AM CDT) Component Value Ref Range Test Analysis Performed Pathologis t Method Time At Signature Systolic Blood mmHg RADIOLOGY Pressure RESULTS Diastolic Blood mmHg RADIOLOGY Pressure RESULTS Ventricular Rate 70 BPM RADIOLOGY RESULTS Atrial Rate 39 BPM RADIOLOGY RESULTS DC Interval ms RADIOLOGY RESULTS QRS Duration 126 ms RADIOLOGY RESULTS QT 442 ms RADIOLOGY RESULTS QTc 477 ms RADIOLOGY RESULTS P [place] degrees RADIOLOGY RESULTS R AXIS 107 degrees RADIOLOGY RESULTS T [place] 33 degrees RADIOLOGY RESULTS Interpretation Atrial fibrillation RADIO LOGY ECG Right bundle branch block RESU LTS Abnormal ECG No previous ECGs available Confirmed by - EMERG[facility]Y [place] PHYSICIAN ([id number]), tape editor ANDRÉS HATCH ([id number]) on 10/11/2021 6:42:29 [...] the Xpert Xpress SARS-CoV-2 Assay on the [employer]-Xpert Instrument Systems. A dditional information about this [...] COVID-19. This test was validated by the [facility]. This laboratory is certified under the Clinical Laboratory Improvement Amendments of 1988 (CLIA-88) as qualified to perform high complexity laboratory testing. Florentino Ragsdale MD LAB - MICRO GENERAL ORDERABL ES Performing Organization Address City/[facility]/ZIP Code [place] [address] Care Lab [address] Lab (1st floor, no room number) [...] LAB - BLOOD ORDERABLES Performing Organization Address City/[facility]/ZIP Code [place] [address] Care Lab [address] Lab (1st floor, no room number) [...] LAB - BLOOD ORDERABLES Performing Organization Address City/[facility]/ZIP Code [place] [address] Care Lab [address] Lab (1st floor, no room number) (ABNORMAL) CBC with platelets and differential (10/08/2021 7:02 PM CDT) [facility] Method Time Signature WBC Count 7.1 4.0 [...] LAB - BLOOD ORDERABLES Performing Organization Address City/[facility]/ZIP Code [place] [address] Care Lab [address] Lab (1st floor, no room number) Adult Type and Screen (10/08/2021 7:02 PM CDT) [facility] Method Time Signature ABO/RH(D) O NEG 10/08/2021 RH BLOOD 6:39 PM CDT BANK Antibody Negative Negative 10/08/2021 RH BLOOD Screen 6:39 PM CDT BANK SPECIMEN [id number] 10/08/2021 RH BLOOD EXPIRATION 6:39 PM CDT [...] e Number RH BLOOD BANK [address] [place] [address] (ABNORMAL) Comprehensive metabolic panel (10/08/2021 7:02 PM CDT) [facility] Method Time Signature Sodium 136 133 - [...] and gender (Brigette et al., NEJ, DOI: 10.1056/[id number]) Specimen Anatomical Collection Method / Collection Time Recei annie Time (Source) Location / Volume Laterality Blood STRUCTURE OF RIGHT Venipuncture / 10/08/2021 7:02 07/2 04/2021 7:10 UPPER LIMB / Unknown PM CDT PM CDT Unknown Florentino Ragsdale MD LAB - BLOOD ORDERABLES Performing Organization Address City/State/ZIP Code [place] [address] Care Lab [address] Lab (1st floor, no room number) from Last 3 Months Insurance Payer Benefit Plan / Subscriber ID Effective Dates Phone Addre ss Type Group BCBS BCBS MEDICARE [id number] 2018-Presen [phone] [address] [address] Medicare ADVANTAGE t 0 [place] [address] Advance Directives For more information, please contact: [phone] Latest Code Status on File Code Status Date Activated Date Inactivated Comments Full Code 10/11/2021 10:33 AM Code status determined by: Discussion with patient/ legal de cision maker Full Code 10/09/2021 1:43 AM 10/11/2021 10:33 AM All basic a nd advanced life-sustaining interventions ar e performed as appropriate Code status determined by: Discussion with patient/ legal de cision maker Care Teams Can Worker Relationship Specialty Start Date End Date Liban Leos PCP - General Family Medicine 10/08/21 [address] [place] [address] Ernie Pompa MD MD Nephrology 10/08/21 [address] [place] [address]
--- OUTSIDE RECORDS SUMMARY | 2021-11-04 08:35 | XMS_ITS | Encounter Summary ---
:1945 Author Organization [facility] Address [address] [place] [address] Care Team Providers Name Role Phone Liban [...] on filedocumented in this encounter Care Teams Press Clipper Relationship Specialty Start Date End Date Liban Leos PCP - General Family Medicine 10/08/21 [address] [place], [place] [phone] Ernie Pompa MD MD Nephrology 10/08/21 [address] [place] [address] documented as of this encounter
--- OUTSIDE RECORDS SUMMARY | 2021-11-04 08:35 | XMS_ITS | Encounter Summary ---
:1945 Author Organization [facility] Address [address] [place] [address] Care Team Providers Name Role Phone Unavailable Primary Care Provider Unavailable Encounter Details Date Type Department Care Team Description 03/31/2019 Records - [facility] GERIATRIC SERVICES Laboratory [facility] [address] [place] [address] [place], [place] [phone] [address] Social History Tobacco Use Types Packs/Day Years Used Date Never Assessed Sex Assigned at Date Recorded Not on file documented as of this encounter Plan of Treatment Not on filedocumented as of this encounter Procedures Procedure Name Priority Date/Time Associated Diagnosis Comme nts BASIC METABOLIC Routine 04/01/2019 7:55 AM Result s for this PANEL MASTER WELDER procedure are i n the results section. CBC WITH PLATELETS Routine 04/01/2019 7:55 AM Res ults for this MASTER WELDER procedure are i n the results section. documented in this encounter Results (ABNORMAL) CBC with platelets (04/01/2019 7:55 AM MASTER WELDER) [facility] Method Time Signature WBC 7.6 4.0 - 11.0 04/01/2019 HEALTH thou/uL 12:[address] [facility] LABORATORY RBC Count 2.48 (L) 4.40 - 04/01/2019 HEALTH 6.20 12:59 PM [facility] LABORATORY Hemoglobin 7.7 (L) 14.0 - 04/01/2019 HEALTH 18.0 g/dL 12:[address] [facility] LABORATORY Hematocrit 25.1 (L) 40.0 - 04/01/2019 HEALTH 54.0 % 12:[address] [facility] LABORATORY MCV 101 (H) 80 - 100 04/01/2019 HEALTH fL 12:[address] [facility] LABORATORY MCH 31.0 27.0 - 04/01/2019 HEALTH 34.0 pg 12:[address] [facility] LABORATORY MCHC 30.7 (L) 32.0 - 04/01/2019 HEALTH 36.0 g/dL 12:[address] [facility] LABORATORY RDW 19.7 (H) 11.0 - 04/01/2019 HEALTH 14.5 % 12:[address] [facility] LABORATORY Platelet Count 137 (L) 140 - 440 04/01/2019 HEALTH thou/uL 12:[address] [facility] LABORATORY Mean Platelet 10.7 8.5 - 12.5 04/01/2019 HEALTH Volume fL 12:[address] [facility] LABORATORY Specimen Anatomical Collection Method / Collection Time Recei annie Time (Source) Location / Volume Laterality Blood specimen STRUCTURE OF RIGHT Venipuncture / 04/01/2019 7:55 (specimen) UPPER LIMB / Unknown AM MASTER WELDER 12:23 PM MASTER WELDER Unknown Alison Hollins LAB - BLOOD ORDERABLES Performing Organization Address City/State/ZIP Code Phon e Number [place] [address] [address] [facility] LABORATORY (ABNORMAL) Basic metabolic panel (04/01/2019 7:55 AM MASTER WELDER) [facility] Method Time Signature Sodium 137 136 - 145 04/01/2019 HEALTH mmol/L 1:[address] [facility] LABORATORY Potassium 4.7 3.5 - 5.0 04/01/2019 HEALTH mmol/L 1:[address] [facility] LABORATORY Chloride 105 98 - 107 04/01/2019 HEALTH mmol/L 1:17 PM [facility] LABORATORY Carbon Dioxide 22 22 - 31 04/01/2019 HEALTH (CO2) mmol/L 1:17 PM [facility] LABORATORY Anion Gap 10 5 - 18 04/01/2019 HEALTH mmol/L 1:[address] [facility] LABORATORY Glucose 83 70 - 125 04/01/2019 HEALTH mg/dL 1:[address] [facility] LABORATORY Calcium 10.1 8.5 - 10.5 04/01/2019 HEALTH mg/dL 1:17 PM [facility] LABORATORY Urea Nitrogen 93 (H) 8 - 28 04/01/2019 HEALTH mg/dL 1:[address] [facility] LABORATORY Creatinine 3.02 (H) 0.70 - 04/01/2019 HEALTH 1.30 mg/dL 1:[address] [facility] LABORATORY GFR Estimate If 25 (L) >60 04/01/2019 HEALTH Black mL/min/1.7 1:[address] LAB[address] GFR Estimate 21 (L) >60 04/01/2019 HEALTH mL/min/1.7 1:17 [address] LAB[address]ORY Specimen Anatomical Collection Method / Collection Time Recei annie Time (Source) Location / Volume Laterality Blood specimen STRUCTURE OF RIGHT Venipuncture / 04/01/2019 7:55 (specimen) UPPER LIMB / Unknown AM MASTER WELDER 12:23 PM MASTER WELDER Unknown Narrative [facility] - 04/01/2019 1:17 PM MASTER WELDER Fasting Glucose reference range is 70-99 mg/dL per [place] [employer] (ADA) maryan marrero. Alison Hollins LAB - BLOOD ORDERABLES Performing Organization Address City/State/ZIP Code Phon e Number [place] [id number] [place] [address] LABORATORY [facility] [address] [place] [address], [facility] documented in this encounter Visit Diagnoses Not on filedocumented in this encounter
--- OUTSIDE RECORDS SUMMARY | 2021-11-04 08:35 | XMS_ITS | Clinical Summary ---
:1945 Author Organization [facility] Address [address] [facility] [address] [place] [address] Phone Care Team Providers Name Role Phone Unavailable Primary Care Provider Unavailable Encounters Date Type Specialty Care Team Description 10/27/2021 Orders Only NephErnie Mccoy MD 10/27/2021 Treatment Ernie Pompa MD 10/20/2021 Orders Only NephErnie Mccoy MD 10/13/2021 [...] Only NephErnie Mccoy MD 08/11/2021 Orders Only Ernie Parnell MD 08/11/2021 Treatment Ernie Pompa MD 08/04/2021 Orders Only NephErnie Mccoy MD from Last [...] Date/Time Associated Diagnosis Comme nts CHEMISTRY Routine 10/27/2021 Results for thi s procedure are i n the results section . HEMATOLOGY Routine 10/27/2021 Results for thi s procedure are i n the results section . [facility] RESULTS Routine 10/20/2021 Resul ts for [...] section . from Last 3 Months Results (ABNORMAL) HEMATOLOGY (10/27/2021)Only the most recent of13 resultswithin the time period is included. Analysis Performed At Patho logist Time Signature Hemoglobin 9.3 (L) 14.0 - [facility] 18.0 g/dL [facility] Hemoglobin x 3 27.9 (L) 42.0 - [facility] 54.0 % [facility] Specimen (Source) Anatomical Collection Method Collection Time Re ceived Time Location / / Volume Laterality 10/27/2021 10/28/2021 8:19 AM CDT Narrative [facility] - 10/28/2021 Unless otherwise specified, test(s) performed at: [employer], [facility] [employer] [facility] [place] [address] CLINIC DIRECTOR: Alhaji Noguera M.D., Ph.D For any questions, please call customer service at FREQUENCY:OTHER Resulting Agency Comment Specimen source: Blood Ernie Pompa MD LAB BLOOD ORDERABLES Performing Organization Address City/State/ZIP Code Phon e Number [facility] (ABNORMAL) [facility] Chemistry (10/27/2021)Only the most recent of14 results within the time period is included. P athologist Signature PTH 203 (H) 16 - 80 [facility] pg/mL [facility] Specimen (Source) Anatomical Collection Method Collection Time Re ceived Time Location / / Volume Laterality 10/27/2021 10/28/2021 7:55 AM CDT Narrative [facility] - 10/28/2021 Unless otherwise specified, test(s) performed at: [employer], [facility] [place] [employer] [facility] [place] [address] CLINIC DIRECTOR: Alhaji Noguera M.D., Ph.D For any questions, please call customer service at FREQUENCY:OTHER Resulting Agency Comment Specimen source: Plasma Ernie Pompa MD LAB BLOOD ORDERABLES Performing Organization Address City/State/ZIP Code Phon e Number [facility] HD KINETICS (10/20/2021)Only the most recent of4 [...] the time period is included. athologist Signature BUN Post 11 6 - 19 [facility] Dialysis mg/dL [facility] Specimen (Source) Anatomical Collection Method Collection Time Re ceived Time Location / / Volume Laterality 10/20/2021 10/21/2021 3:38 AM CDT Narrative [facility] - 10/21/2021 Unless otherwise specified, test(s) performed at: [employer], [address] [place] [address] CLINIC DIRECTOR: Alhaji Noguera M.D., Ph.D For any questions, [...] 10/21/2021 Unless otherwise specified, test(s) performed at: [employer], [address] [facility] [place] [address] CLINIC DIRECTOR: Alhaji Noguera M.D., Ph.D For any questions, please call customer service at FREQUENCY:MONTHLY Resulting Agency Comment Specimen source: Plasma Ernie Pompa MD LAB BLOOD ORDERABLES Performing Organization Address City/[facility]/ZIP Code Phon e Number [facility]PS [facility] Spectra [facility] Lab Results (10/20/2021)Only the most recent of4 resultswithin the time period is included. P athologist Signature eNPCR 0.70 [facility] spKt/V Gotch 1.55 [facility] PCR 57.66 [facility] eKt/V Gotch 1.35 [facility] eKdrt/V 1.35 [facility] nPCR_HD 0.75 [facility] eKt/V 1.29 [facility] ([place]) spKt/V 1.48 [facility] ([place]augirdas II) Specimen (Source) Anatomical Location Collection Method / Collectio n Time Received Time / Laterality Volume 10/20/2021 10/20/2021 [facility] Ordering Provider LAB BLOOD ORDERABLES Performing Organization Address City/[facility]/ZIP Code Phon e Number [facility] SPECIAL CHEMISTRY [...] BANK TEST ORDERABL ES Performing Organization Address City/[facility]/ZIP Code Phon e Number [facility]PS [facility] from Last 3 Months Insurance Payer Benefit Plan Subscriber ID Effective Dates Phone Address Type / Group [place] [id number] 2018-Sameer [phone] [address] [address] MEDICARE ADV ([id number]) t [address] [place] [address] ([place]) [place] [address]
--- OUTSIDE RECORDS SUMMARY | 2021-11-04 08:35 | XMS_ITS | Encounter Summary ---
:1945 Author Organization [place] Address [facility] [place] [address] Care Team Providers Name Role Phone Unavailable Primary Care Provider Unavailable Encounter Details Date Type Department Care Team Description 04/07/2019 Records - [facility] G[facility]IATR[facility] [address] [place] [id number] [place], [place] [phone] [id number] Social History Tobacco Use Types Packs/Day Years Used Date Never Assessed Sex Assigned at Date Recorded Not on file documented as of this encounter Plan of Treatment Not on filedocumented as of this encounter Procedures Procedure Name Priority Date/Time Associated Diagnosis Comme nts BASIC METABOLIC Routine 04/08/2019 7:45 AM Result s for this PANEL CONTACT WORKER procedure are i n the results section. CBC WITH PLATELETS Routine 04/08/2019 7:45 AM Res ults for this CONTACT WORKER procedure are i n the results section. documented in this encounter Results (ABNORMAL) Basic metabolic panel (04/08/2019 7:45 AM CONTACT WORKER) [facility] Method Time Signature Sodium 137 136 - 145 04/08/2019 HEALTH mmol/L 10:53 AM [facility] Potassium 5.2 (H) 3.5 - 5.0 04/08/2019 HEALTH mmol/L 10:53 AM [facility] Chloride 102 98 - 107 04/08/2019 HEALTH mmol/L 10:53 AM [facility] Carbon Dioxide 22 22 - 31 04/08/2019 HEALTH (CO2) mmol/L 10:53 AM [facility] Anion Gap 13 5 - 18 04/08/2019 [facility]ALTH mmol/L 10:53 AM [facility] Glucose 209 (H) 70 - 125 04/08/2019 HEALTH mg/dL 10:53 AM [facility] Calcium 10.3 8.5 - 10.5 04/08/2019 HEALTH mg/dL 10:53 AM [facility] Urea Nitrogen 101 (H) 8 - 28 04/08/2019 HEALTH mg/dL 10:53 AM [facility] Creatinine 3.66 (H) 0.70 - 04/08/2019 HEALTH 1.30 mg/dL 10:53 AM [facility] GFR Estimate If 20 (L) >60 04/08/2019 HEALTH Black mL/min/1.7 10:[address] LABORATORY GFR Estimate 16 (L) >60 04/08/2019 HEALTH mL/min/1.7 10:[address] LABORATORY Specimen Anatomical Collection Method / Collection Time Recei annei Time (Source) Location / Volume Laterality Blood specimen STRUCTURE OF RIGHT Venipuncture / 04/08/2019 7:45 (specimen) UPPER LIMB / Unknown AM CONTACT WORKER 10:22 AM CONTACT WORKER Unknown Narrative [facility] - 04/08/2019 10:53 AM CONTACT WORKER Fasting Glucose reference range is 70-99 mg/dL per [employer] (ADA) maryan marrero. Alison Hollins LAB - BLOOD ORDERABLES Performing Organization Address City/State/ZIP Code Phon e Number [facility] [place] [id number] [place] [address] [place] [id number], [facility] (ABNORMAL) CBC with platelets (04/08/2019 7:45 AM CONTACT WORKER) [facility] gist Method Time Signature WBC 5.2 4.0 - 11.0 04/08/2019 M [facility] thou/uL 10:32 AM [facility] RBC Count 2.52 (L) 4.40 - 04/08/2019 HEALTH 6.20 10:32 AM [facility] Hemoglobin 7.9 (L) 14.0 - 04/08/2019 [facility] 18.0 g/dL 10:32 AM [facility] Hematocrit 25.2 (L) 40.0 - 04/08/2019 [facility] 54.0 % 10:32 AM [facility] MCV 100 80 - 100 04/08/2019 [facility] fL 10:32 AM [facility] MCH 31.3 27.0 - 04/08/2019 [facility] 34.0 pg 10:32 AM [facility] MCHC 31.3 (L) 32.0 - 04/08/2019 [facility] 36.0 g/dL 10:32 AM [facility] RDW 19.4 (H) 11.0 - 04/08/2019 [facility] 14.5 % 10:32 AM [facility] Platelet Count 140 140 - 440 04/08/2019 HEALTH [facility]/uL 10:32 AM [facility] Mean Platelet 10.4 8.5 - 12.5 04/08/2019 [facility] Volume fL 10:32 AM [facility] Specimen Anatomical Collection Method / Collection Time Recei annie Time (Source) Location / Volume Laterality Blood specimen STRUCTURE OF RIGHT Venipuncture / 04/08/2019 7:45 (specimen) UPPER LIMB / Unknown AM CONTACT WORKER 10:22 AM CONTACT WORKER Unknown Alison Hollins LAB - BLOOD ORDERABLES Performing Organization Address City/State/ZIP Code Phon e Number [place] [address] [facility] [address] [facility] documented in this encounter Visit Diagnoses Not on filedocumented in this encounter
--- OUTSIDE RECORDS SUMMARY | 2021-11-04 08:35 | XMS_ITS | Encounter Summary ---
:1945 Author Organization [facility] Address [facility] [place] [address] Care Team Providers Name Role Phone Liban Leos Primary Care Provider Ernie Pompa MD Unavailable Reason for Visit Reason Comments Hypotension Auth/Cert Specialty Diagnoses / Procedures Referred By Contact Refer red To Contact Med Surg Diagnoses UGI bleed UGI bleed 5 Medical Surgical [address] [place], [place] [address] Phone: Fax: Referral ID Status Reason Start Date Expiration Date Visits Requ ested Visits Authorized [id number] 1 1 Encounter Details Date Type Department Care Team Description 10/10/2021 Surgery [facility] Lizz, ESOPHAGOGA STRODUODENOSCOPY [facility] Joce biopsies Services MD [place] [address] [place] [address] [address] [place] [address] Surgery Details Date/Time Status Location [...] CDT Pulse 72 10/10/2021 7:20 AM per telesales specialist CDT Temperature 36.5 ??C (97.7 ??F) 10/09/2021 [...] daily fluticasone (FLONASE) 50 MCG/ACT nasal spray [place] 1 spray in nostril daily fluticasone-salmeterol (ADVAIR [...] ulcer and??morbid obesity??who??presents to the ED from [facility] due to concerns of hematemesis and melanotic stool. He had just finished HD (took 1.2L) and presented to [facility] due to concerns of dizziness and hematemesis. ?? Work up at [facility] showed hgb of 7.5 and soft pressures in the 100's. CT abd pelvis showed normal distal esophagus, stomach and normal liver. No symptoms of obstruction or mass. There were moderate ascites in the dependent abdomen. He received NS bolus (500cc) and 1 unit(s) PRBC and transferred to [facility] ED. Work up in our ED reveals [...] is something he should revisit with his head animal keeper. He does also have a history of [...] discharge was: 35 Minutes Dallin Farah DO [facility] Hospitalist [place] [address] 10/11/2021 documented in this encounter Medications at Time of Discharge Medication Sig Dispensed Refills Start Date End Date allopurinol (ZYLOPRIM) Take 100 mg by mouth 0 100 MG tablet daily atorvastatin (LIPITOR) Take 20 mg by mouth 0 11/19 20 MG tablet daily fluticasone (FLONASE) 50 [place] 1 spray in 0 12/15 MCG/ACT nasal [...] walker and gait belt, denies pain, GREY, [id number] on RA. VSS, continues to be anuric. [...] to treatment See Adult Hemodialysis flowsheet in [facility] for further details and post assessment. Machine water alarm in place and functioning. Transducer pods intact and checked every 15min. Pt returned via bed. Chlorine/Chloramine water system checked every 4 hours. Outpatient Dialysis at [facility] Post treatment report given to Delilah [...] as tolerate. No heparin. Plan discussed with showroom salesperson and patient at the bedside. Interval History: [...] medications, labs and imaging. Frederick Alcaraz MD [facility] - Nephrology Office phone :[phone] Pager: [phone] Jovita Blackmon RN - 10/11/2021 7:05 AM [...] morbid obesity??who presents to the ED from [facility] due to concerns of hematemesis and melanotic stool. He had just finished HD (took 1.2L) and presented to [facility] due to concerns of dizziness and hematemesis. ?? Work up at [facility] showed hgb of 7.5 and soft pressures in the 100's. CT abd pelvis showed normal distal esophagus, stomach and normal liver. No symptoms of obstruction or mass. There were moderate ascites in the dependent abdomen. He received NS bolus (500cc) and 1 unit(s) PRBC and transferred to [facility] ED. Work up in our ED reveals [...] past 24 hour(s)). Dallin Farah DO [facility] [place] [address] 10/10/2021 Terry Wolfe MD - 10/10/2021 9:14 [...] mcg/hr (10/09/21 1126) Current active medications and [facility] [employer] [facility] medications reviewed, see medication list for details. [...] results for input(s): MAG in the last 66084 hours. No results for input(s): PHOS in the last 07125 hours. Recent Labs Lab Test 10/10/21 0722 [...] morbid obesity??who presents to the ED from [facility] due to concerns of hematemesis and melanotic stool. He had just finished HD (took 1.2L) and presented to [facility] due to concerns of dizziness and hematemesis. ?? Work up at [facility] showed hgb of 7.5 and soft pressures in the 100's. CT abd pelvis showed normal distal esophagus, stomach and normal liver. No symptoms of obstruction or mass. There were moderate ascites in the dependent abdomen. He received NS bolus (500cc) and 1 unit(s) PRBC and transferred to [facility] ED. Work up in our ED reveals [...] past 24 hour(s)). Dallin Farah DO [facility] Hospitalist Clark Lentz [facility] [place] [address] 10/09/2021 documented in this encounter H&P Notes Layne Rossi PA-C - 10/08/2021 9:27 PM CDT [facility] Admission History and Physical Examination NAME: Jonatan Mejia : 1945 Date of Admission: 10/08/2021 Assessment & Plan Jonatan Mjeia is a 73 y.o. male with a past medical history pertinent for??ESRD on HD MWF, paroxysmal Afib on ASA 81m g daily, aortic stenosis??s/p bioprosthetic aortic valve replacement, hypertension, diabetes mellitus type II, ??secondary hyperparathyroidism, esophageal reflux/barretts esophogus,Hx of GIB due to gastric ulcer and morbid obesity??who presents to the ED from [facility] due to concerns of hematemesis and melanotic stool. He had just finished HD (took 1.2L) and presented to [facility] due to concerns of dizziness and hematemesis. Work up at [facility] showed hgb of 7.5 and soft bps in the 100's. CT abd pelvis showed normal distal esophagus, stomach and normal liver. No sxs of obstruction or mass. There were moderate ascites in the dependent abd. He received NS bolus (500cc) and 1u PRBC and transferred to [facility] ED. Work up in our ED reveals [...] morbid obesity??who presents to the ED from [facility] due to concerns of hematemesis and melanotic stool. He had just finished HD (took 1.2L) and presented to [facility] due to concerns of dizziness and hematemesis. Work up at [facility] showed hgb of 7.5 and soft bps in the 100's. CT abd pelvis showed normal distal esophagus, stomach and normal liver. No sxs of obstruction or mass. There were moderate ascites in the dependent abd. He received NS bolus (500cc) and 1u PRBC and transferred to [facility] ED. Work up in our ED reveals [...] 50 MCG/ACT nasal spray Yes Yes Sig: [place] 1 spray in nostril daily fluticasone-salmeterol (ADVAIR [...] 16 AST -- 15 Layne Rossi PA-C [facility] Medicine October 08, 2021 Securely message with the [employer] Console (learn more here) Text page via [facility] Paging/Directory Associated attestation - Fadi Viveros DO [...] 11:33 AM CDTAssociated Order(s): GASTROENTEROLOGY IP CONSULT [facility] Gastroenterology Consultation Joce Zamudio MD Patient [...] He had an EGD June 28 at [facility]. Preoperative indication was Brannon's surveillance. 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 Biopsies were negative for Brannon's but did show esophagitis. Stomach showed diffuse gastritis with old blood consistent with erosive gastritis. Moderate duodenitis was noted. This was confirmed on biopsy and suspected be due to nonsteroidals likely aspirin. He reports an EGD in the remote past at [facility] that showed ulcers. He has ascites [...] Medication Sig Last Dose Taking? Auth Provider Intermediate End Date allopurinol (ZYLOPRIM) 100 MG tablet [...] Yes fluticasone (FLONASE) 50 MCG/ACT nasal spray [place] 1 spray in nostril daily 10/07/2021 at [...] 15 ALKPHOS 116 Joce Zamudio MD, FACG [facility] [phone] Terry Wolfe MD - 10/09/2021 10:29 AM CDT Consult Date: 10/09/2021 REQUESTING PHYSICIAN: Dallin Farah MD. BIT SHARPENER: Dallas Wolfe MD. REASON FOR CONSULTATION: End-stage renal disease, on hemodialysis. HISTORY OF PRESENT ILLNESS: This is a 73-year-old with end-stage renal disease who dialyzes Monday, Monday, Monday. [place]. He drives [...] lives alone in a farm [place]. REVIEW OF SYSTEMS: He feels relatively well [...] ETREMT Name: JONATAN MEJIA. MRN: [id number] Account: [id number] : 1945 Consult Date: 10/09/2021 Document: [id number] Terry Wolfe MD - 10/09/2021 10:24 AM CDTAssociated Order(s): NEPHROLOGY IP CONSULT See dictation. Confirmation # [id number]. documented in this encounter ED Notes Essence Osuna RN - 10/09/2021 1:16 PM CDT Pt received one unit of RBC this morning, tolerated well, no transfusion reaction. Stepdaregina jin, aware of patient transfer to [facility]. Advanced to clear liquid diet, tolerating well. Pt will be NPO at midnight for EGD on 10/10. Kaylee Trejo RN - 10/08/2021 11:05 PM CDT [facility] ED Nurse Handoff Report Jonatan Mejia [...] X 1. Lift room needed:No. Bariatric: No Wagon Person Needed: No Isolation: No. Infection: Not Applicable. [...] Brianna, , and informed her of admission [facility] boarding status. She will visit [...] - 10/08/2021 6:30 PM CDT sent from [facility]. Dialysis patient with hypotension today. Given 500ml and 1 unit PRBC at [facility]. Florentino Ragsdale MD - 10/08/2021 6:23 PM [...] NPO @ midnight.Bleeding precautions. Hemodialysis. Bedside Nurse: euegne Mcelroy RN Plan of Care - Fredy [...] Pharmacy-Admission Medication History - Lisbeth Doddn Angie, [facility] - 10/08/2021 10:14 PM CDT Admission medication history interview status for this patient is complete. See [facility] admission navigator for allergy information, prior to admission medications and immunization status. Medication history interview done, indicate source(s): Patient Medication history resources (including written lists, pill bottles, clinic record): Evelin Camacho Pharmacy: [id number] - [place], [place] - [address] [phone] Changes made to [facility] [employer] medication list: Added: ALL Actions taken by pharmacist (provider contacted, etc):None Additional medication history information:None Medication reconciliation/reorder completed by provider prior to medication history? No Prior to Admission medications Medication Sig Last Dose Taking? Auth Provider Intermediate End Date allopurinol (ZYLOPRIM) 100 MG tablet [...] Yes fluticasone (FLONASE) 50 MCG/ACT nasal spray [place] 1 spray in nostril daily 10/07/2021 at [...] Diagnosis HEMODIALYSIS SINGLE TREATMENT Routine 10/11/2021 SETUP ([facility]) 4:33 PM CDT HEMODIALYSIS DIALYZER ([facility]) Routine 10/11/2021 2:28 PM CDT IP [...] B surface antigen (10/11/2021 7:46 AM CDT) [facility] Method Time Signature Hepatitis B Nonreactive Nonreactive [...] e Number [facility] C[facility]/PROT/ENDO [facility] [place] [address] Core/Prot/Endo [address] [facility] [address], Room 3-580 (ABNORMAL) CBC with platelets (10/11/2021 6:36 AM CDT) [facility] Method Time Signature WBC Count 7.1 4.0 [...] Address City/State/ZIP Code Phon [place] [address] Care Lab [address] Lab (1st floor, no room number) (ABNORMAL) Basic metabolic panel (10/11/2021 6:36 AM CDT) [facility] Method Time Signature Sodium 134 133 [...] and gender (Brigette et al., NEJM, DOI: 10.1056/[id number]) Specimen Anatomical Collection Method / Collection Time Recei annie Time (Source) Location / Volume Laterality Blood STRUCTURE OF RIGHT Venipuncture / 10/11/2021 6:36 07/2 07/2021 6:42 HAND / Unknown Unknown AM CDT AM CDT Dallin Farah DO LAB - BLOOD ORDERABLES Performing Organization Address City/State/ZIP Code Phon e [place] [phone] Care Lab [address] Lab (1st floor, no room number) [...] LAB - BEAKER POCT Performing Organization Address [facility]/ZIP Code Phon e Number [place] [address] Care Lab [address] Lab (1st floor, no room number) Surgical Pathology Exam (10/10/2021 8:58 AM CDT) Component Value Ref Test Analysis Performed Pathologis t Range Method Time At Signature Case Report Surgical Pathology Report ? Case: [id number] ? Authorizing Provider: ??Carb allo, Joce ? Collected: ? 10/10/2021 08:58 AM ? 2 8:22 AM NAHID DE LEON ? MD [place] ? CDT Ordering Location: ? [facility] ?? Received: ?10/10/2021 09:42 AM ? Main [...] was 2 8:22 AM [facility] Case Images 2 [...] Address City/State/ZIP Code [place] [address] Care Lab [address] [facility] Lab (1st floor, no room number) UPPER GI ENDOSCOPY (10/10/2021 8:18 AM CDT) Component Value Ref Test Analysis Performed At [facility] Range Method Time Signature Upper GI [facility] RADIOLOGY Endoscopy RESULTS Patient Name: Jonatan Mejia ? Procedure Date: 09/18 8:18 AM ? Account Num flako: [id number] Date of : 1945 ?Admit Type: Inp [...] Model ?# GIF-H190, Endora # 205, SN #[id number] was ?introduced through the mouth, and advanced [...] Note Initiated On: 10/10/2021 8:18 AM MRN: ?[id number] Procedure Date: ? 10/10/2021 8:18:14 AM Total [...] CBC with platelets (10/10/2021 7:22 AM CDT) [facility] Method Time Signature WBC Count 7.2 [...] City/State/ZIP Code Phon e Number [place] [phone] Care Lab [address] Lab (1st floor, no room number) (ABNORMAL) Basic metabolic panel (10/10/2021 7:22 AM CDT) [facility] Method Time Signature Sodium 132 (L) [...] and gender (Brigette et al., NEJM, DOI: 10.1056/[id number]) Specimen Anatomical Collection Method / Collection Time Recei annie Time (Source) Location / Volume Laterality Blood STRUCTURE OF RIGHT Venipuncture / 10/10/2021 7:22 /06/2021 7:31 UPPER LIMB / Unknown AM CDT AM CDT Unknown Dallin Farah DO LAB - BLOOD ORDERABLES Performing Organization Address City/State/ZIP Code [place] [phone] Care Lab [address] Lab (1st floor, no room number) [...] LAB - BLOOD ORDERABLES Performing Organization Address City/[facility]/[place] [address] Care Lab [address] Lab (1st floor, no room number) [...] LAB - BLOOD ORDERABLES Performing Organization Address [facility]/[place] [address] Care Lab [address] Lab (1st floor, no room number) [...] LAB - BLOOD ORDERABLES Performing Organization Address City/[facility]/[place] [address] Care Lab [address] Lab (1st floor, no room number) Transfuse red blood cells (unit) No special requirements (10/09/2021 11:51 AM CDT) Dallin Simons MD BLOOD TRANSFUSION ORDERABLES Transfuse red blood cells (unit), 1 Units No special requirements (10/09/2021 11:51 AM CDT) Dallin Simons MD BLOOD TRANSFUSION ORDERABLES (ABNORMAL) CBC with platelets (10/09/2021 9:12 AM CDT) [facility] gist Method Time Signature WBC Count 7.2 [...] City/State/ZIP Code Phon e Number [place] [phone] Care Lab [address] Lab (1st floor, no room number) (ABNORMAL) Basic metabolic panel (10/09/2021 9:12 AM CDT) [facility] Method Time Signature Sodium 134 133 [...] and gender (Brigette et al., NEJ, DOI: 10.1056/[id number]) Specimen Anatomical Collection Method / Collection Time Recei annie Time (Source) Location / Volume Laterality Blood STRUCTURE OF RIGHT Venipuncture / 10/09/2021 9:12 /05/2021 9:34 HAND / Unknown Unknown AM CDT AM CDT Layne Rossi PA-C LAB - BLOOD ORDERABLES Performing Organization Address City/State/ZIP Code Phon e Number [place] [address] Care Lab [address] Lab (1st floor, no room number) Prepare red blood cells (unit) (10/09/2021 6:52 AM CDT) [facility] Method Time Signature CROSSMATCH Compatible RH BLOOD BANK UNIT ABO/RH O Neg RH BLOOD BANK Unit Number [id number] RH BLOOD BANK Unit Status Transfused RH BLOOD BANK Blood Red Blood Cells RH BLOOD Component Type BANK Product Code [id number] RH BLOOD BANK CODING SYSTEM [id number] RH BLOOD BANK UNIT TYPE ISBT 9500 RH BLOOD BANK ISSUE DATE AND [id number] RH BLOOD TIME BANK Specimen (Source) Anatomical Collection Method Collection Time Re ceived Time Location / / Volume Laterality 10/09/2021 6:52 AM CDT Dallin Simons MD BLOOD BANK PRODUCT ORDERABLE S Performing Organization Address City/State/ZIP Code Phon e Number RH BLOOD BANK [address] [place] [address] Transfuse red blood cells (unit) No special [...] RESULTS Atrial Rate 39 BPM RADIOLOGY RESULTS [place] Interval ms RADIOLOGY RESULTS QRS Duration 126 ms RADIOLOGY RESULTS QT 442 ms RADIOLOGY RESULTS QTc 477 ms RADIOLOGY RESULTS P [place] degrees RADIOLOGY RESULTS R AXIS 107 degrees RADIOLOGY RESULTS T [place] 33 degrees RADIOLOGY RESULTS Interpretation Atrial fibrillation RADIO LOGY ECG Right bundle branch block RESU LTS Abnormal ECG No previous ECGs available Confirmed by - [facility] [place] Aravind PHYSICIAN ([id number]), business editor ANDRÉS HATCH ([id number]) on 10/11/2021 6:42:29 AM Specimen Anatomical Collection Method Collection Time Receive d Time (Source) Location / / Volume Laterality 10/09/2021 12:52 10/11/2021 6:42 AM CDT AM CDT Layne Ray Rossi PA-C ECG ORDERABLES Performing Organization Address City/[facility]/ZIP Code Phon e Number RADIOLOGY RESULTS Prepare red blood cells (unit) (10/08/2021 11:46 PM CDT) Patholo gist Method Time Signature CROSSMATCH Compatible RH BLOOD BANK UNIT ABO/RH O Neg RH BLOOD BANK Unit Number [id number] RH BLOOD BANK Unit Status Transfused RH BLOOD BANK Blood Red Blood Cells RH BLOOD Component Type BANK Product Code [id number] RH BLOOD BANK CODING SYSTEM [id number] RH BLOOD BANK UNIT TYPE ISBT 9500 RH BLOOD BANK ISSUE DATE AND RH BLOOD TIME BANK Specimen (Source) Anatomical Collection Method Collection Time Re ceived Time Location / / Volume Laterality 10/08/2021 11:46 PM CDT Layne Rossi PA-C BLOOD BANK PRODUCT ORDERABLE S Performing Organization Address City/[facility]/ZIP Code Phon e Number RH BLOOD BANK [address] [place] [address] (ABNORMAL) Hemoglobin (10/08/2021 10:47 PM CDT) athologist [...] LAB - BLOOD ORDERABLES Performing Organization Address City/[facility]/ZIP Code Phon [place] [address] Care Lab [address] [facility] [...] LAB - BEAKER POCT Performing Organization Address City/[facility]/ZIP Code Phon e Number RH [place]AT[place] [address] Care Lab [address] Lab (1st floor, no room number) [...] the Xpert Xpress SARS-CoV-2 Assay on the [employer]. A dditional information about this [...] COVID-19. This test was validated by the [facility]. This laboratory is certified under the Clinical Laboratory Improvement Amendments of 1988 (CLIA-88) as qualified to perform high complexity laboratory testing. Florentino Ragsdale MD LAB - MICRO GENERAL ORDERABL ES Performing Organization Address City/State/ZIP Code Phon e [place] [address] Care Lab [address] Lab (1st floor, no room number) [...] Address City/State/ZIP Code Phon [place] [phone] Care Lab [address] Lab (1st floor, no room number) [...] LAB - BLOOD ORDERABLES Performing Organization Address City/[facility]/ZIP Code Phon [place] [phone] Care Lab [address] Lab (1st floor, no room number) [...] LAB - BLOOD ORDERABLES Performing Organization Address City/[facility]/ZIP Code Phon e Number [place] [address] Care Lab [address] Lab (1st floor, no room number) Adult Type and Screen (10/08/2021 7:02 PM CDT) [facility] Signature ABO/RH(D) O NEG 10/08/2021 RH BLOOD 6:39 PM CDT BANK Antibody Negative Negative 10/08/2021 RH BLOOD Screen 6:39 PM CDT BANK SPECIMEN [id number] 10/08/2021 RH BLOOD EXPIRATION 6:39 PM CDT BANK DATE Specimen Anatomical Collection Method / Collection Time Recei annie Time (Source) Location / Volume Laterality Blood STRUCTURE OF RIGHT Venipuncture / 10/08/2021 7:02 09/18 7:10 UPPER LIMB / Unknown PM CDT PM CDT Unknown Florentino Ragsdale MD LAB - BLOOD BANK TEST ORDER Performing Organization Address [facility]/ZIP Code Phon e Number RH BLOOD BANK [address] [address] (ABNORMAL) Comprehensive metabolic panel (10/08/2021 7:02 PM CDT) [facility] Method Time Signature Sodium 136 133 - [...] and gender (Brigette et al., NEJ, DOI: 10.1056/[id number]) Specimen Anatomical Collection Method / Collection Time Recei annie Time (Source) Location / Volume Laterality Blood STRUCTURE OF RIGHT Venipuncture / 10/08/2021 7:02 09/18 7:10 UPPER LIMB / Unknown PM CDT PM CDT Unknown Florentino Ragsdale MD LAB - BLOOD ORDERABLES Performing Organization Address City/State/ZIP Code Phon [place] [address] Care Lab [address] Lab (1st floor, no room number) [...] [id number] documented in this encounter Care Teams Filler And Trimmer Relationship Specialty Start Date End Date Liban Leos PCP - General Family Medicine 10/08/21 [address] [place] [address] Ernie Pompa MD MD Nephrology 10/08/21 [address] [place] [address] documented as of this encounter
--- OUTSIDE RECORDS SUMMARY | 2021-11-04 08:35 | XMS_ITS | Encounter Summary ---
:1945 Author Organization [facility] Address [address] [place] [address] Care Team Providers Name Role Phone Unavailable Primary Care Provider Unavailable Encounter Details Date Type Department Care Team Description 04/03/2019 Records - [facility] GERIATRIC [facility] [address] [place] [phone] [place], [place] [phone] [id number] Social History Tobacco Use Types Packs/Day Years Used Date Never Assessed Sex Assigned at Date Recorded Not on file documented as of this encounter Plan of Treatment Not on filedocumented as of this encounter Procedures Procedure Name Priority Date/Time Associated Diagnosis Comme nts BASIC METABOLIC Routine 04/04/2019 6:30 AM Result s for this PANEL TRANSPORT AIDE procedure are i n the results section. CBC WITH PLATELETS Routine 04/04/2019 6:30 AM Res ults for this TRANSPORT AIDE procedure are i n the results section. documented in this encounter Results (ABNORMAL) CBC with platelets (04/04/2019 6:30 AM TRANSPORT AIDE) [facility] Method Time Signature WBC 7.7 4.0 - 11.0 04/04/2019 HEALTH thou/uL 9:51 AM [facility] RBC Count 2.58 (L) 4.40 - 04/04/2019 HEALTH 6.20 9:51 AM [facility] Hemoglobin 8.0 (L) 14.0 - 04/04/2019 HEALTH 18.0 g/dL 9:51 AM [facility] Hematocrit 26.3 (L) 40.0 - 04/04/2019 HEALTH 54.0 % 9:51 AM [facility] MCV 102 (H) 80 - 100 04/04/2019 HEALTH fL 9:51 AM [facility] MCH 31.0 27.0 - 04/04/2019 HEALTH 34.0 pg 9:51 AM [facility] MCHC 30.4 (L) 32.0 - 04/04/2019 HEALTH 36.0 g/dL 9:51 AM [facility] RDW 20.2 (H) 11.0 - 04/04/2019 HEALTH 14.5 % 9:51 AM [facility] Platelet Count 142 140 - 440 04/04/2019 HEALTH thou/uL 9:51 AM [facility] Mean Platelet 11.0 8.5 - 12.5 04/04/2019 HEALTH Volume fL 9:51 AM [facility] Specimen Anatomical Collection Method / Collection Time Recei annie Time (Source) Location / Volume Laterality Blood specimen STRUCTURE OF RIGHT Venipuncture / 04/04/2019 6:30 9:35 (specimen) UPPER LIMB / Unknown AM TRANSPORT AIDE AM TRANSPORT AIDE Unknown [facility] - BLOOD ORDERABLES Performing Organization Address City/State/ZIP Code Phon [place] [address] [phone] [address] [facility] (ABNORMAL) Basic metabolic panel (04/04/2019 6:30 AM TRANSPORT AIDE) [facility] gist Method Time Signature Sodium 140 136 - 145 04/04/2019 HEALTH mmol/L 11:11 AM [facility] Potassium 4.8 3.5 - 5.0 04/04/2019 HEALTH mmol/L 11:11 AM [facility] Chloride 104 98 - 107 04/04/2019 HEALTH mmol/L 11:11 AM [facility] Carbon Dioxide 23 22 - 31 04/04/2019 HEALTH (CO2) mmol/L 11:11 AM [facility] Anion Gap 13 5 - 18 04/04/2019 HEALTH mmol/L 11:11 AM [facility] Glucose 84 70 - 125 04/04/2019 HEALTH mg/dL 11:11 AM [facility] Calcium 10.2 8.5 - 10.5 04/04/2019 HEALTH mg/dL 11:11 AM [facility] Urea Nitrogen 92 (H) 8 - 28 04/04/2019 HEALTH mg/dL 11:11 AM [facility] Creatinine 3.32 (H) 0.70 - 04/04/2019 HEALTH 1.30 mg/dL 11:11 AM [facility] GFR Estimate If 22 (L) >60 04/04/2019 HEALTH Black mL/min/1.7 11:[address] LABORATORY GFR Estimate 18 (L) >60 04/04/2019 HEALTH mL/min/1.7 11:11 AM [address] LABORATORY Specimen Anatomical Collection Method / Collection Time Recei annie Time (Source) Location / Volume Laterality Blood specimen STRUCTURE OF RIGHT Venipuncture / 04/04/2019 6:30 9:35 (specimen) UPPER LIMB / Unknown AM TRANSPORT AIDE AM TRANSPORT AIDE Unknown Narrative [facility] LAB[facility]ATORY - 04/04/2019 11:11 AM TRANSPORT AIDE Fasting Glucose reference range is 70-99 mg/dL per [place] [employer] (ADA) maryan soriano [facility] - BLOOD ORDERABLES Performing Organization Address City/State/ZIP Code [place] [phone] [place] [address] LABORATORY [facility] [address] [place] [id number], [facility] documented in this encounter Visit Diagnoses Not on filedocumented in this encounter
--- OUTSIDE RECORDS SUMMARY | 2021-11-04 08:36 | XMS_ITS | Encounter Summary ---
:1945 Author Organization [facility] Address [address] [place] [address] Care Team Providers Name Role Phone Unavailable Primary Care Provider Unavailable Encounter Details Date Type Department Care Team Description 07/07/2021 Orders Only [facility] f Ernie Guzmán MD [phone] [place] [address] [place], [place] [phone] (Wo rk) Social History Tobacco Use [...] 07/10/2021 Unless otherwise specified, test(s) performed at: [facility], [address] [place] [address] LUMBER KILN OPERATOR: Alec Payan M.D. For any questions, [...] 07/10/2021 Unless otherwise specified, test(s) performed at: [facility], [address] [place], [place] [id number] LUMBER KILN OPERATOR: Alec Payan M.D. For any questions, please call customer service at FREQUENCY:OTHER Resulting Agency Comment Specimen source: Plasma Ernie Pompa MD LAB BLOOD ORDERABLES Performing Organization Address [facility] Phon e Number [facility]PS SPECTRA [...] 07/10/2021 Unless otherwise specified, test(s) performed at: [facility], [address] [place] [address] LUMBER KILN OPERATOR: Alec Payan M.D. For any questions, please call customer service at FREQUENCY:OTHER Resulting Agency Comment Specimen source: Blood Ernie Pompa MD LAB BLOOD ORDERABLES Performing Organization Address City/[facility]/ZIP [facility] Phon e Number [facility] documented in this encounter Visit Diagnoses Not on filedocumented in this encounter
--- OUTSIDE RECORDS SUMMARY | 2021-11-04 08:36 | XMS_ITS | Encounter Summary ---
:1945 Author Organization [facility] Address [address] [place] [address] Care Team Providers Name Role Phone Unavailable Primary Care Provider Unavailable Encounter Details Date Type Department Care Team Description 10/27/2021 Treatment [facility] f Ernie Guzmán MD [address] [place] [address] [place], [place] [phone] (Wo rk) Social History Tobacco Use Types Packs/Day Years Used Date Smoking Tobacco: Unknown Comments: Smoking History Info:Patient n ot screened Sex Assigned at Date Recorded Not on file documented as of this encounter Miscellaneous Notes Dialysis Note - Ernie Pompa MD - 10/27/2021 10:07 AM CDT Date: Oct 27, 2021 Patient Name: Shaun Ocampo : 1945 Chart #: [id number] Sex: M This patient was personally seen for a complete visit as part of routine monthly dialysis care. A review of the dialysis treatment, blood pressure, estimated dry weight and recent lab values was made. These were discussed with the patient and staff as necessary. Treatment Data for 10/27/2021 started at:6:52 AM Dialyzer: 180NRe Optiflux Na: 138 mEq/L Bicarb: 34 mEq/L Dialysate: 2.0 K, 2.5 Ca, 1.0 Mg, 100 Dextrose (G2251) Dialysate/Machine Temp (prescribed): 37 C Dialysate/Machine Temp (actual): 36.5 C BFR (prescribed): 400 BFR (actual): 400 Prescribed time: 04:00 EDW: 109 kg Access Type: Active (In Use):AVFistula-Standard/Left Upper Arm Pre Dialysis Vitals (for 10/27/2021 6:42 AM ) Pre BP (sit): 99/47 Pre Wt: 111.7 kg Temp: 96.4 F Post Dialysis Vitals (for 10/25/2021 10:52 AM ) Post BP (sit): 101/52 Post Wt: 109.3 kg Current Dialysis Vitals (for 10/27/2021 10:02 AM ) BP (sit): 99/43 AP(-) / CONFIGURATION MANAGER: 176/154 Pulse: 62 Chairside data as of 10/27/2021 10:02 AM Last 3 Treatments 10/25/2021 10/22/2021 10/21/2021 EDW (kg) 109 109 109 Weight Pre (kg) 112.3 110.4 112.5 Weight Post (kg) 109.3 107.8 108.4 Dialytic Weight Loss (kg) -3 -2.6 -4.1 EDW Deviation (kg) 0.3 -1.2 -0.6 BP Sit Pre 84/46 93/46 93/41 BP Sit Post 101/52 117/37 118/56 UF Rate (mL/kg/hr) 7 6 13 Prescribed BFR 400 400 400 Average Delivered BFR 410 410 410 Prescribed Treatment Time 04:00 04:00 03:00 Actual Treatment Time 04:01 04:01 02:58 Last 3 Values 08/27/2021 05/28/2021 04/23/2021 Access Flow 794 1106 1246 Treatment Medication Orders Medication Sig Start Date End Date Doxercalciferol (Hectorol) 5 mcg IVP Every Treatment 09/17/2021 09/16/2022 Etelcalcetide (Parsabiv) 10 mg IVP 3X Week Post Dialysis 09/27/2021 09/26/2022 Heparin Sodium (Porcine) 1,000 Units/mL Systemic 2000 units IVP Every Treatment 03/29/2021 03/28/2022 Heparin Sodium (Porcine) 1,000 Units/mL Systemic 1000 units IVP Every Treatment 03/29/2021 03/28/2022 Iron Sucrose (Venofer) 50 mg IVP 1X Week 10/25/2021 10/24/2022 Mircera 200 mcg IVP Every 2 weeks 10/27/2021 10/26/2022 POTASH FLAKER: Ernie Pompa MD LOCATION: [place] [phone] SCHEDULE: -W- 2nd Shift EDW: kg. DIALYZER: HD DURATION: NEEDLE SIZE: ANTICOAG: BATH: QB: ml/min QD: ml/min Subjective Tolerating dialysis well. 10/27/21: He is doing much better after extra UF run last week at [place]. BP adequate, challengingEDW today. His breathing is improved. Also went to wound care clinic at [facility] and they dressedwounds and he has follow-up and instructions for dressings and cares. He has no new symptoms and otherwise feels well. 10/13: Had GI bleeding on Monday, went to ER after dialysis, admitted at [facility], had 3u blood, EGDwithout obvious source, ASA [...] and do periodic extra UF treatments at [place] rather than risk more hypotension post-tx with use of midodrine and additional UF during treatments. He has fistulagram last week, went well and access working well since. 08/11: Continues to have problems with fluid gains. we have spent considerable time discussing this, he is trying to work on this but can't seem to avoid large gains. Will go to [place] for UF tomorrow, needs extra treatments every 2 weeks it looks like to maintain EDW. He does get SOB when >5K over dry weight in particular. 07/21/21: Continues to struggle with fluid gains, extra UF run scheduled tomorrow at [place]. He does feel more SOB when fluid overloaded. No new symptoms otherwise, he is enjoying the nicer weather which allows him to do more activity and not sit at home and drink fluids which he thinks will help with IDWG's. 07/14/21: Continues to have high gains, unfortunately [place] without staff to open tomorrow for extra [...] improving. Fluid gains continue to be high, [place] not open on this week, says he will do his best withlimiting salt/fluid. HE does feel SOB with exertion with extra fluid on, no orthopnea. 05/26/21: Has SOB when >5 Kg over dry weight, extra run last week at [place] helped. Trying his best with fluid restriction. [...] extra run and we discussed going to [place] tomorrow for UF only run and he [...] again today, may need extra run at [place] if can't get down over next week. 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 06/10: Doing well overall, no new complaints, [...] to Urgent care -> ER in [place] yesterday,CT with R hydro but no obstructive [...] He had infiltration last week, dialyzed at [facility] on Sat and went well, [...] murmur heard. Edema - 1+ leg edema. under wraps Access - AVF intact with needles in place, no aneurysms Lateral R ankle there is small superficial ulceration but covered now with dressing and wrap on legsb/l from wound clinic Medication List Medication Sig Start Date albuterol [...] irbesartan Treatment and Adequacy Assessment BUN mg/dL 38 (10/20/21) 41 (09/22/21) 55 (08/30/21) 52 (08/18/21) 44 (07/21/21) UREA NITROGEN (MG/DL) IN SER/PLAS - POST DIALYSIS mg/dL 11 (10/20/21) 12 (09/22/21) 16 (08/30/21) 17 (08/18/21) 14 (07/21/21) URR % 71 (10/20/21) 71 (09/22/21) 71 (08/30/21) 67 (08/18/21) 68 (07/21/21) spKt/V Gotch 1.55 (10/20/21) 1.53 (09/22/21) 1.39 (08/18/21) 1.42 (07/21/21) 1.62 (05/21/21) eKdrt/V 1.35 (10/20/21) 1.33 (09/22/21) 1.21 (08/18/21) 1.24 (07/21/21) 1.41 (05/21/21) spKt/V (Daugirdas II) 1.4800 (10/20/21) 1.4700 (09/22/21) 1.4900 (08/30/21) 1.3400 (08/18/21) 1.3700 (07/21/21) Dialysis is adequate. Achieves prescribed time - Yes Achieves prescribed frequency - Yes Continue current prescription. Vascular Access Assessment Type of access: Mfdfgyb07/2019 Surgeon - Lary GARDNER 08/2021: fistulagram at [facility] with angioplasty of stenosis completed Anemia Assessment HEMOGLOBIN (G/DL) IN BLOOD g/dL 9.9 (10/20/21) 9.8 (10/13/21) 9.3 (10/06/21) 8.9 (09/29/21) 9.4 (09/22/21) PLATELETS 1000/mcL 184 (10/20/21) 250 (09/22/21) 101 (08/18/21) 183 (07/21/21) 149 (05/19/21) IRON SATURATION % 32 (08/18/21) 36 (07/21/21) 31 (06/23/21) 38 (05/26/21) 35 (05/19/21) FERRITIN ng/mL 357 (09/22/21) 640 (06/23/21) 640 (05/21/21) 857 (03/24/21) 837 (02/24/21) Hemoglobin is at goal. Iron Saturation is at goal. Ferritin is at goal. Will adjust NATALEE and intravenous iron per protocol. Nutritional and Metabolic Assessment ALBUMIN (G/DL) g/dL 3.8 (10/20/21) 3.7 (09/22/21) 3.6 (08/18/21) 3.5 (07/21/21) 3.7 (06/23/21) Sodium mEq/L 135 (10/20/21) 133 (09/22/21) 135 (08/18/21) 138 (07/21/21) 137 (06/23/21) POTASSIUM (MMOL/L) IN SER/PLAS mEq/L 5.0 (10/20/21) 5.7 (09/29/21) 6.3 (09/22/21) 5.8 (08/18/21) 5.5 (07/21/21) BICARBONATE (CO2) mEq/L 26 (10/20/21) 26 (09/22/21) 23 (08/18/21) 25 (07/21/21) 22 (06/23/21) 25 OH VITAMIN D ng/mL 56.0 (09/22/21) 38.3 (03/24/21) Albumin is below goal. Encourage high-biological value protein intake. Potassium is at goal. Encourage low potassium diet. Bicarbonate is at goal. Continue same bicarbonate in dialysate. Bone and Mineral Metabolism Assessment CALCIUM mg/dL 9.5 (10/20/21) 9.2 (09/22/21) 8.9 (09/13/21) 8.6 (09/01/21) 8.7 (08/18/21) CALCIUM (MG/DL) CORRECTED FOR ALBUMIN IN SER/PLAS mg/dL 9.7 (10/20/21) 9.4 (09/22/21) 9.0 (08/18/21) 9.0 (07/21/21) 9.2 (06/23/21) PHOSPHATE (MG/DL) IN SER/PLAS mg/dL 2.9 (10/20/21) 3.9 (09/22/21) 4.4 (08/18/21) 4.4 (07/21/21) 4.4 (06/23/21) CALCIUM PHOSPHORUS PRODUCT, COR 28 (10/20/21) 37 (09/22/21) 40 (08/18/21) 40 (07/21/21) 40 (06/23/21) IPTH pg/mL 722 (09/22/21) 851 (09/13/21) 810 (08/20/21) 766 (08/18/21) 986 (08/04/21) Corrected Calcium is at goal. Phosphorous is below goal. Intact PTH is above goal. Used Car Make Ready Worker will adjust binders and vitamin D per protocol and continue to provide dietary education. HE has severe nausea and vomiting with Sensipar, can not use anymore He will benefit from Parsabiv with dose titration to achieve PTH <600, on 10mg now and PTH improving Cardiovascular Assessment Blood pressures reviewed and are acceptable. Intradialytic weight gains are too high. Estimated dry weight is too high, will decrease. Continue same cardiovascular medications. Discussed fluid restriction multiple times, IDWG's remain high Extra UF run needed occasionally at [place] when they are open, did last week and better since then Lower EDW by 0.5 kg today and continue to challenge as able Transplant Status: Patient is not a candidate. Weight, co-morbidities, age Resuscitation Status Stable dialysis Lower EDW by 0.5 kg today, challenge if able Following with wound clinic for LE wounds, none infected Ernie Pompa MD [ Signed And locked electronically On 10/27/2021 at 10:09:52 AM ] Transcribed: Ernie Pompa ( 10/27/2021 ) documented in this encounter Plan of Treatment Not on filedocumented as of this encounter Visit Diagnoses Not on filedocumented in this encounter
--- OUTSIDE RECORDS SUMMARY | 2021-11-04 08:36 | XMS_ITS | Encounter Summary ---
:1945 Author Organization [facility] Address [address] [place] [address] Care Team Providers Name Role Phone Unavailable Primary Care Provider Unavailable Encounter Details Date Type Department Care Team Description 08/20/2021 Orders Only [facility] O f Ernie Guzmán MD [phone] [place] [address] [place], [place] [phone] (Wo rk) Social History Tobacco Use [...] 08/21/2021 Unless otherwise specified, test(s) performed at: [facility], [address] [place] [address] COREMAKER SUPERVISOR: Alec Payan M.D. For any questions, please call customer service at FREQUENCY:OTHER Resulting Agency Comment Specimen source: Plasma Ernie Pompa MD LAB BLOOD ORDERABLES Performing Organization Address City/State/ZIP Code Phon e Number [facility] documented in this encounter Visit Diagnoses Not on filedocumented in this encounter
--- OUTSIDE RECORDS SUMMARY | 2021-11-04 08:36 | XMS_ITS | Encounter Summary ---
:1945 Author Organization [facility] Address [address] [place] [address] Care Team Providers Name Role Phone Unavailable Primary Care Provider Unavailable Encounter Details Date Type Department Care Team Description 08/25/2021 Treatment [facility] f Ernie Guzmán MD [address] [place] [address] [place], [place] [phone] (Wo rk) Social History Tobacco Use Types Packs/Day Years Used Date Smoking Tobacco: Unknown Comments: Smoking History Info:Patient n ot screened Sex Assigned at Date Recorded Not on file documented as of this encounter Miscellaneous Notes Dialysis Note - Ernie Pompa MD - 08/25/2021 10:16 AM CDT Date: Aug 25, 2021 Patient Name: Shaun Ocampo : 1945 Chart #: [id number] Sex: M This patient was personally seen for a complete visit as part of routine monthly dialysis care. A review of the dialysis treatment, blood pressure, estimated dry weight and recent lab values was made. These were discussed with the patient and staff as necessary. Treatment Data for 08/25/2021 started at:6:48 AM Dialyzer: 180NRe Optiflux Na: 138 mEq/L Bicarb: 34 mEq/L Dialysate: 2.0 K, 2.5 Ca, 1.0 Mg, 100 Dextrose (G2251) Dialysate/Machine Temp (prescribed): 37 C Dialysate/Machine Temp (actual): 36.6 C BFR (prescribed): 400 BFR (actual): 400 Prescribed time: 04:00 EDW: 109 kg Access Type: Active (In Use):AVFistula-Standard/Left Upper Arm Pre Dialysis Vitals (for 08/25/2021 6:48 AM ) Pre BP (sit): 105/23 Pre Wt: 117.4 kg Temp: 97.4 F Post Dialysis Vitals (for 08/23/2021 1:39 PM ) Post BP (sit): 100/36 Post Wt: 114.4 kg Current Dialysis Vitals (for 08/25/2021 10:02 AM ) BP (sit): 118/41 AP(-) / CERTIFIED APPLIANCE SERVICE TECHNICIAN: 171/153 Pulse: 69 Chairside data as of 08/25/2021 10:02 AM Last 3 Treatments 08/23/2021 08/20/2021 08/18/2021 EDW (kg) 109 109 109 Weight Pre (kg) 118.1 117.1 117.3 Weight Post (kg) 114.4 112.8 112.9 Dialytic Weight Loss (kg) -3.7 -4.3 -4.4 EDW Deviation (kg) 5.4 3.8 3.9 BP Sit Pre 106/38 133/53 116/54 BP Sit Post 100/36 103/47 96/43 UF Rate (mL/kg/hr) 8 10 10 Prescribed BFR 400 400 400 Average Delivered BFR 410 410 410 Prescribed Treatment Time 04:00 04:00 04:00 Actual Treatment Time 04:00 04:00 04:01 Last 3 Values 05/28/2021 04/23/2021 04/02/2021 [...] mg IVP 1X Week 07/26/2021 07/25/2022 Mircera 75 mcg IVP Every 2 weeks 08/25/2021 08/24/2022 GYRO COMPASS TESTER: Ernie Pompa MD LOCATION: [phone] SCHEDULE: -- 2nd Shift EDW: kg. DIALYZER: HD DURATION: NEEDLE SIZE: ANTICOAG: BATH: QB: ml/min QD: ml/min Subjective Tolerating dialysis well. 08/25/21: He is essentially having the same [...] and do periodic extra UF treatments at [facility] rather than risk more hypotension post-tx with use of midodrine and additional UF during treatments. He has fistulagram last week, went well and access working well since. 08/11: Continues to have problems with fluid gains. we have spent considerable time discussing this, he is trying to work on this but can't seem to avoid large gains. Will go to [facility] for UF tomorrow, needs extra treatments every 2 weeks it looks like to maintain EDW. He does get SOB when >5K over dry weight in particular. 07/21/21: Continues to struggle with fluid gains, extra UF run scheduled tomorrow at [facility]. He does feel more SOB when fluid overloaded. No new symptoms otherwise, he is enjoying the nicer weather which allows him to do more activity and not sit at home and drink fluids which he thinks will help with IDWG's. 07/14/21: Continues to have high gains, unfortunately [facility] without staff to open tomorrow for extra [...] had steroid injections in knees yesterday at [facility]. To do PT as well. He pulled muscle in his lower arm on L side last week getting into car, hurt a lot but is improving. Fluid gains continue to be high, [facility] not open on this week, says he will do his best withlimiting salt/fluid. HE does feel SOB with exertion with extra fluid on, no orthopnea. 05/26/21: Has SOB when >5 Kg over dry weight, extra run last week at [facility] helped. Trying his best with fluid restriction. [...] extra run and we discussed going to [facility] tomorrow for UF only run and he [...] again today, may need extra run at [facility] if can't get down over next week. 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 06/10: Doing well overall, no new complaints, [...] Went to Urgent care -> ER in [place] yesterday,CT with R hydro but no obstructive [...] He had infiltration last week, dialyzed at [facility] on Sat and went well, access [...] superficial ulceration without erythema or drainage and it is not warm to the touch Multiple scabs on both legs and ankles and feet with dry cracked skin and chronic venous stasis changes Medication List Medication Sig Start Date albuterol [...] irbesartan Treatment and Adequacy Assessment BUN mg/dL 52 (08/18/21) 44 (07/21/21) 66 (06/23/21) 43 (05/21/21) 48 (05/19/21) UREA NITROGEN (MG/DL) IN SER/PLAS - POST DIALYSIS mg/dL 17 (08/18/21) 14 (07/21/21) 19 (06/23/21) 12 (05/21/21) 15 (05/19/21) URR % 67 (08/18/21) 68 (07/21/21) 71 (06/23/21) 72 (05/21/21) 69 (05/19/21) spKt/V Gotch 1.39 (08/18/21) 1.42 (07/21/21) 1.62 (05/21/21) 1.45 (05/19/21) 1.6 (04/21/21) eKdrt/V 1.21 (08/18/21) 1.24 (07/21/21) 1.41 (05/21/21) 1.26 (05/19/21) 1.39 (04/21/21) spKt/V (Daugirdas II) 1.3400 (08/18/21) 1.3700 (07/21/21) 1.4700 (06/23/21) 1.5200 (05/21/21) 1.3800 (05/19/21) Dialysis is adequate. Achieves prescribed time - Yes Achieves prescribed frequency - Yes Continue current prescription. Vascular Access Assessment Type of access: [id number] Surgeon - Lary GARDNER 08/2021[place] [facility] [place] Anemia Assessment HEMOGLOBIN (G/DL) IN BLOOD g/dL 9.4 (08/18/21) 9.5 (08/11/21) 9.1 (08/04/21) 9.9 (07/28/21) 9.6 (07/21/21) PLATELETS 1000/mcL 101 (08/18/21) 183 (07/21/21) 149 (05/19/21) 155 (04/21/21) 135 (03/24/21) IRON SATURATION % 32 (08/18/21) 36 (07/21/21) 31 (06/23/21) 38 (05/26/21) 35 (05/19/21) FERRITIN ng/mL 640 (06/23/21) 640 (05/21/21) 857 (03/24/21) 837 (02/24/21) 925 (01/27/21) Hemoglobin is below goal. Iron Saturation is at goal. Ferritin is at goal. Will adjust NATALEE and intravenous iron per protocol. Nutritional and Metabolic Assessment ALBUMIN (G/DL) g/dL 3.6 (08/18/21) 3.5 (07/21/21) 3.7 (06/23/21) 3.7 (05/19/21) 4.0 (04/21/21) Sodium mEq/L 135 (08/18/21) 138 (07/21/21) 137 (06/23/21) 136 (05/19/21) 136 (04/21/21) POTASSIUM (MMOL/L) IN SER/PLAS mEq/L 5.8 (08/18/21) 5.5 (07/21/21) 4.9 (06/23/21) 5.0 (05/19/21) 5.4 (04/21/21) BICARBONATE (CO2) mEq/L 23 (08/18/21) 25 (07/21/21) 22 (06/23/21) 20 (05/19/21) 20 (04/21/21) 25 OH VITAMIN D ng/mL 38.3 (03/24/21) 37.9 (09/23/20) Albumin is below goal. Encourage high-biological value protein intake. Potassium is above goal. Encourage low potassium diet. Bicarbonate is at goal. Continue same bicarbonate in dialysate. Bone and Mineral Metabolism Assessment Calcium mg/dL 8.7 (08/18/21) 9.0 (08/04/21) 8.6 (07/21/21) 8.8 (07/07/21) 9.0 (06/23/21) CALCIUM (MG/DL) CORRECTED FOR ALBUMIN IN SER/PLAS mg/dL 9.0 (08/18/21) 9.0 (07/21/21) 9.2 (06/23/21) 9.3 (05/19/21) 9.6 (04/21/21) PHOSPHATE (MG/DL) IN SER/PLAS mg/dL 4.4 (08/18/21) 4.4 (07/21/21) 4.4 (06/23/21) 4.7 (05/19/21) 4.7 (04/21/21) CALCIUM PHOSPHORUS PRODUCT, COR 40 (08/18/21) 40 (07/21/21) 40 (06/23/21) 44 (05/19/21) 45 (04/21/21) IPTH pg/mL 810 (08/20/21) 766 (08/18/21) 986 (08/04/21) 1142 (07/07/21) 1243 (06/23/21) Corrected Calcium is at goal. Phosphorous is at goal. Intact PTH is above goal. Automatic Typewriter Inspector will adjust binders and vitamin D per [...] to maintain euvolemia, extra UF run planned at [facility] when they areopen either tomorrow or next week on Transplant Status: Patient is not a candidate. Weight, co-morbidities, age Resuscitation Status Stable dialysis, no changes to prescription Extra UF run at [facility] Continue work on lower IDWG's Titrate Vit D and Parabiv to achieve PTH <600 No irbesartan with hypotension Ernie Pompa MD [ Signed And locked electronically On 08/25/2021 at 10:22:00 AM ] Transcribed: rEnie Pompa ( 08/25/2021 ) documented in this encounter Plan of Treatment Not on filedocumented as of this encounter Visit Diagnoses Not on filedocumented in this encounter
--- OUTSIDE RECORDS SUMMARY | 2021-11-04 08:36 | XMS_ITS | Encounter Summary ---
:1945 Author Organization [facility] Address [address] [place] [address] Care Team Providers Name Role Phone Unavailable Primary Care Provider Unavailable Encounter Details Date Type Department Care Team Description 08/11/2021 Orders Only [facility] f Ernie Guzmán MD [phone] [place] [address] [place], [place] [phone] (Wo rk) Social History Tobacco Use [...] 08/12/2021 Unless otherwise specified, test(s) performed at: [facility], [address] [place] [address] ROUTE SALES PERSON: Alec Payan M.D. For any questions, please call customer service at FREQUENCY:OTHER Resulting Agency Comment Specimen source: Blood Ernie Pompa MD LAB BLOOD ORDERABLES Performing Organization Address City/State/ZIP Code Phon e Number [facility] documented in this encounter Visit Diagnoses Not on filedocumented in this encounter
--- OUTSIDE RECORDS SUMMARY | 2021-11-04 08:36 | XMS_ITS | Encounter Summary ---
:1945 Author Organization [facility] Address [address] [place] [address] Care Team Providers Name Role Phone Unavailable Primary Care Provider Unavailable Encounter Details Date Type Department Care Team Description 09/15/2021 Treatment [facility] f Ernie Guzmán MD [address] [place] [address] [place], [place] [phone] (Wo rk) Social History Tobacco Use Types Packs/Day Years Used Date Smoking Tobacco: Unknown Comments: Smoking History Info:Patient n ot screened Sex Assigned at Date Recorded Not on file documented as of this encounter Miscellaneous Notes Dialysis Note - Ernie Pompa MD - 09/15/2021 10:30 AM CDT Date: Sep 15, 2021 Patient Name: Shaun Ocampo : 1945 Chart #: [id number] Sex: M This patient was personally seen [...] AM ) BP (sit): 107/33 AP(-) / TRAFFIC OPERATOR: n/a Pulse: 65 Chairside data as [...] mcg IVP Every 2 weeks 09/15/2021 09/14/2022 LEGAL ACTIVITY ADJUDICATOR: Ernie Pompa MD LOCATION: [phone] SCHEDULE: -- 2nd Shift ACCESS: EDW: kg. [...] and do periodic extra UF treatments at [facility] rather than risk more hypotension post-tx with use of midodrine and additional UF during treatments. He has fistulagram last week, went well and access working well since. 08/11: Continues to have problems with fluid gains. we have spent considerable time discussing this, he is trying to work on this but can't seem to avoid large gains. Will go to [facility] for UF tomorrow, needs extra treatments every 2 weeks it looks like to maintain EDW. He does get SOB when >5K over dry weight in particular. 07/21/21: Continues to struggle with fluid gains, extra UF run scheduled tomorrow at [facility]. He does feel more SOB when fluid overloaded. No new symptoms otherwise, he is enjoying the nicer weather which allows him to do more activity and not sit at home and drink fluids which he thinks will help with IDWG's. 07/14/21: Continues to have high gains, unfortunately [facility] without staff to open tomorrow for extra [...] had steroid injections in knees yesterday at [facility]. To do PT as well. He pulled muscle in his lower arm on L side last week getting into car, hurt a lot but is improving. Fluid gains continue to be high, [facility] not open on this week, says he will do his best withlimiting salt/fluid. HE does feel SOB with exertion with extra fluid on, no orthopnea. 05/26/21: Has SOB when >5 Kg over dry weight, extra run last week at [facility] helped. Trying his best with fluid restriction. [...] No open wounds on feet now. 03/24/21: Shanu feels well. He had extra run prior [...] extra run and we discussed going to [facility] tomorrow for UF only run and he [...] again today, may need extra run at [facility] if can't get down over next week. 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 06/10: Doing well overall, no new complaints, [...] Went to Urgent care -> ER in [place] yesterday,CT with R hydro but no obstructive [...] He had infiltration last week, dialyzed at [facility] on Sat and went well, access [...] (08/18/21) Vascular Access Assessment: Type of access: [id number]/2019 Surgeon - Lary GARDNER 08/2021: [place] [facility] [place] Impression and Plan Stable dialysis overall, no changes to prescription made Continue to work on fluid gains, likely will need extra UF run every couple of weeks at [facility] I asked him to schedule follow-up with [...]
--- OUTSIDE RECORDS SUMMARY | 2021-11-04 08:36 | XMS_ITS | Encounter Summary ---
:1945 Author Organization [facility] Address [address] [place] [address] Care Team Providers Name Role Phone Unavailable Primary Care Provider Unavailable Encounter Details Date Type Department Care Team Description 09/29/2021 Treatment [facility] f Ernie Guzmán MD [address] [place] [address] [place], [place] [phone] (Wo rk) Social History Tobacco Use Types Packs/Day Years Used Date Smoking Tobacco: Unknown Comments: Smoking History Info:Patient n ot screened Sex Assigned at Date Recorded Not on file documented as of this encounter Miscellaneous Notes Dialysis Note - Ernie Pompa MD - 09/29/2021 10:30 AM CDT Date: Sep 29, 2021 Patient Name: Shaun Ocampo : 1945 Chart #: [id number] Sex: M This patient was personally seen [...] AM ) BP (sit): 109/45 AP(-) / TRANSFERRER: 168/138 Pulse: 57 Chairside data as of [...] 08/27/2021 05/28/2021 04/23/2021 Access Flow [id number] 1245 Treatment Medication Orders Medication Sig Start Date [...] mcg IVP Every 2 weeks 09/29/2021 09/28/2022 PRODUCT EXAMINER: Ernie Pompa MD LOCATION: [phone] SCHEDULE: -- 2nd Shift EDW: kg. DIALYZER: [...] and do periodic extra UF treatments at [facility] rather than risk more hypotension post-tx with use of midodrine and additional UF during treatments. He has fistulagram last week, went well and access working well since. 08/11: Continues to have problems with fluid gains. we have spent considerable time discussing this, he is trying to work on this but can't seem to avoid large gains. Will go to [facility] for UF tomorrow, needs extra treatments every 2 weeks it looks like to maintain EDW. He does get SOB when >5K over dry weight in particular. 07/21/21: Continues to struggle with fluid gains, extra UF run scheduled tomorrow at [facility]. He does feel more SOB when fluid overloaded. No new symptoms otherwise, he is enjoying the nicer weather which allows him to do more activity and not sit at home and drink fluids which he thinks will help with IDWG's. 07/14/21: Continues to have high gains, unfortunately [facility] without staff to open tomorrow for extra [...] improving. Fluid gains continue to be high, [facility] not open on this week, says he will do his best withlimiting salt/fluid. HE does feel SOB with exertion with extra fluid on, no orthopnea. 05/26/21: Has SOB when >5 Kg over dry weight, extra run last week at [facility] helped. Trying his best with fluid restriction. [...] extra run and we discussed going to [facility] tomorrow for UF only run and he [...] again today, may need extra run at [facility] if can't get down over next week. 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 06/10: Doing well overall, no new complaints, [...] Went to Urgent care -> ER in [place] yesterday,CT with R hydro but no obstructive [...] He had infiltration last week, dialyzed at [facility] on Sat and went well, access [...] prescription. Vascular Access Assessment Type of access: [id number]/2019 Surgeon - Lary GARDNER 08/2021: [place] [facility] [place] Anemia Assessment [...] at goal. Intact PTH is above goal. Pipe Inspector will adjust binders and vitamin D [...] remain high Extra UF run tomorrow at [facility] Transplant Status: Patient is not a candidate. Weight, co-morbidities, age Resuscitation Status Stable dialysis, no changes to prescription Extra UF run at [facility] tomorrow Ongoing attempts at lower IDWG's Discussed [...]
--- OUTSIDE RECORDS SUMMARY | 2021-11-04 08:36 | XMS_ITS | Encounter Summary ---
:1945 Author Organization [facility] Address [address] [place] [address] Care Team Providers Name Role Phone Unavailable Primary Care Provider Unavailable Encounter Details Date Type Department Care Team Description 10/20/2021 Orders Only [facility] f Ernie Guzmán MD [phone] [place] [address] [place], [place] [phone] (Wo rk) Social History Tobacco Use [...] MD LAB BLOOD ORDERABLES Performing Organization Address City/[facility]/ZIP Code Phon e Number [facility] POST CHEMISTRY (10/20/2021) athologist Signature BUN Post 11 6 - 19 [facility] Dialysis mg/dL [facility] Specimen (Source) Anatomical Collection Method Collection Time Re ceived Time Location / / Volume Laterality 10/20/2021 10/21/2021 3:38 AM CDT Narrative [facility] - 10/21/2021 Unless otherwise specified, test(s) performed at: [facility], [address] [place] [address], [place] [address] CONTACT CENTER PROFESSIONAL: Alhaji Noguera M.D., Ph.D For any questions, please call customer service at FREQUENCY:MONTHLY Resulting Agency Comment Specimen source: Plasma Ernie Pompa MD LAB BLOOD ORDERABLES Performing Organization Address City/State/ZIP Code Phon e Number [facility] (ABNORMAL) Spectrae Chemistry (10/20/2021) [facility] gist Method Time Signature BUN 38 (H) [...] 10/21/2021 Unless otherwise specified, test(s) performed at: [facility], [address] [place] [address], [place] [address] CONTACT CENTER PROFESSIONAL: Alhaji Noguera M.D., Ph.D For any questions, [...] 10/21/2021 Unless otherwise specified, test(s) performed at: [facility], [address] [place] [address], [place] [address] CONTACT CENTER PROFESSIONAL: Alhaji Noguera M.D., Ph.D For any questions, please call customer service at FREQUENCY:MONTHLY Resulting Agency Comment Specimen source: Blood Ernie Pompa MD LAB BLOOD ORDERABLES Performing Organization Address [facility] Phon e Number [facility] IMMUNO CHEMISTRY (10/20/2021) P athologist Signature Hep B Surface Negative Negative [facility] Ag [facility] Specimen (Source) Anatomical Collection Method Collection Time Re ceived Time Location / / Volume Laterality 10/20/2021 10/21/2021 3:50 AM CDT Narrative [facility] - 10/21/2021 Unless otherwise specified, test(s) performed at: [facility], [address] [place] [address], [place] [address] CONTACT CENTER PROFESSIONAL: Alhaji Noguera M.D., Ph.D For any questions, please call customer service at FREQUENCY:MONTHLY Resulting Agency Comment Specimen source: Plasma Ernie Pompa MD LAB BLOOD ORDERABLES Performing Organization Address [facility]/ZIP Code Phon e Number [facility] documented in this encounter Visit Diagnoses Not on filedocumented in this encounter
--- OUTSIDE RECORDS SUMMARY | 2021-11-04 08:36 | XMS_ITS | Encounter Summary ---
:1945 Author Organization [facility] Address [address] [place] [address] Care Team Providers Name Role Phone Unavailable Primary Care Provider Unavailable Encounter Details Date Type Department Care Team Description 06/30/2021 Orders Only [facility] O f Ernie Guzmán MD [phone] [place] [address] [place], [place] [phone] (Wo rk) Social History Tobacco Use Types Packs/Day Years Used Date Smoking Tobacco: Unknown Comments: Smoking History Info:Patient n ot screened Sex Assigned at Date Recorded Not on file documented as of this encounter Plan of Treatment Not on filedocumented as of this encounter Procedures Procedure Name Priority Date/Time Associated Diagnosis Comme nts HEMATOLOGY Routine 06/30/2021 Results for thi s procedure are in the resu lts section. documented in this encounter Results (ABNORMAL) HEMATOLOGY (06/30/2021) Analysis Performed At Patho logist Time Signature Hemoglobin 9.1 (L) 14.0 - [facility] 18.0 g/dL [facility] Hemoglobin x 3 27.3 (L) 42.0 - [facility] 54.0 % [facility] Specimen (Source) Anatomical Collection Method Collection Time Re ceived Time Location / / Volume Laterality 06/30/2021 07/01/2021 9:47 AM CDT Narrative [facility] - 07/01/2021 Unless otherwise specified, test(s) performed at: [facility], [address] [place] [address] CNMT: Alec Payan M.D. For any questions, please call customer service at FREQUENCY:OTHER Resulting Agency Comment Specimen source: Blood Ernie Pompa MD LAB BLOOD ORDERABLES Performing Organization Address City/State/ZIP Code Phon e Number [facility] documented in this encounter Visit Diagnoses Not on filedocumented in this encounter
--- OUTSIDE RECORDS SUMMARY | 2021-11-04 08:36 | XMS_ITS | Encounter Summary ---
:1945 Author Organization [facility] Address [address] [place] [address] Care Team Providers Name Role Phone Unavailable Primary Care Provider Unavailable Encounter Details Date Type Department Care Team Description 08/30/2021 [facility] Only [facility] O f Ernie Guzmán MD [address] [place] [address] [place], [place] [phone] (Wo rk) Social History Tobacco Use [...] 08/31/2021 Unless otherwise specified, test(s) performed at: [facility], [address] [place] [address] ELECTRICAL ACCESSORIES II ASSEMBLER: Alec Payan M.D. For any questions, please call customer service at FREQUENCY:OTHER Resulting Agency Comment Specimen source: Serum Ernie Pompa MD LAB BLOOD ORDERABLES Performing Organization Address City/[facility] Phon e Number APS SPECTRA [facility] (ABNORMAL) Spectrae Chemistry (08/30/2021) athologist Signature BUN 55 (H) 6 - 19 APS SPECTRA mg/dL [facility] Specimen (Source) Anatomical Collection Method Collection Time Re ceived Time Location / / Volume Laterality 08/30/2021 08/31/2021 5:11 PM CDT Narrative APS SPECTRA [facility] - 08/31/2021 Unless otherwise specified, test(s) performed at: [facility], [address] [place] [address] ELECTRICAL ACCESSORIES II ASSEMBLER: Alec Payan M.D. For any questions, please call customer service at FREQUENCY:OTHER Resulting Agency Comment Specimen source: Serum Ernie Pompa MD LAB BLOOD ORDERABLES Performing Organization Address City/[facility] Phon e Number APS SPECTRA [facility] POST CHEMISTRY (08/30/2021) athologist Signature BUN Post 16 6 - 19 APS SPECTRA Dialysis mg/dL [facility] Specimen (Source) Anatomical Collection Method Collection Time Re ceived Time Location / / Volume Laterality 08/30/2021 08/31/2021 1:52 PM CDT Narrative APS SPECTRA [facility] - 08/31/2021 Unless otherwise specified, test(s) performed at: [facility], [address] [place] [address] ELECTRICAL ACCESSORIES II ASSEMBLER: Alec Payan M.D. For any questions, please call customer service at FREQUENCY:OTHER Resulting Agency Comment Specimen source: Plasma Ernie Pompa MD LAB BLOOD ORDERABLES Performing Organization Address City/State/ZIP Code Phon e Number APS SPECTRA [facility] documented in this encounter Visit Diagnoses Not on filedocumented in this encounter
--- OUTSIDE RECORDS SUMMARY | 2021-11-04 08:36 | XMS_ITS | Encounter Summary ---
:1945 Author Organization [facility] Address [address] [place] [address] Care Team Providers Name Role Phone Unavailable Primary Care Provider Unavailable Encounter Details Date Type Department Care Team Description 09/15/2021 [facility] O f Ernie Guzmán MD [address] [place] [address] [place], [place] [phone] (Wo rk) Social History Tobacco Use [...] 09/16/2021 Unless otherwise specified, test(s) performed at: [facility], [address] [place] [address] EATING DISORDER SPECIALIST: Alec Payan M.D. For any questions, please call customer service at FREQUENCY:OTHER Resulting Agency Comment Specimen source: Blood Ernie Pompa MD LAB BLOOD ORDERABLES Performing Organization Address City/State/ZIP Code Phon e Number APS SPECTRA [facility] documented in this encounter Visit Diagnoses Not on filedocumented in this encounter
--- OUTSIDE RECORDS SUMMARY | 2021-11-04 08:36 | XMS_ITS | Encounter Summary ---
:1945 Author Organization [facility] Address [address] [place] [address] Care Team Providers Name Role Phone Unavailable Primary Care Provider Unavailable Encounter Details Date Type Department Care Team Description 08/18/2021 [facility] O f Ernie Guzmán MD [phone] [place] [address] [place], [place] [phone] (Wo rk) Social History Tobacco Use [...] Provider LAB BLOOD ORDERABLES Performing Organization Address City/[facility]/ZIP Code Phon e Number [facility] (08/18/2021) P athologist Signature % Urea 67 65 - 80 % APS SPECTRA Reduction [facility] Specimen (Source) Anatomical Collection Method Collection Time Re ceived Time Location / / Volume Laterality 08/18/2021 08/20/2021 12:5 8 AM CDT Resulting Agency Comment Specimen source: Plasma Ernie Pompa MD LAB BLOOD ORDERABLES Performing Organization Address [facility]/ZIP Code Phon e Number APS SPECTRA [facility] POST CHEMISTRY (08/18/2021) P athologist Signature BUN Post 17 6 - 19 APS SPECTRA Dialysis mg/dL [facility] Specimen (Source) Anatomical Collection Method Collection Time Re ceived Time Location / / Volume Laterality 08/18/2021 08/20/2021 12:5 8 AM CDT Narrative APS SPECTRA [facility] - 08/20/2021 Unless otherwise specified, test(s) performed at: [facility], [address] [place] [address] RADIO ANNOUNCER: Alec Payan M.D. For any questions, please call customer service at FREQUENCY:MONTHLY Resulting Agency Comment Specimen source: Plasma Ernie Pompa MD LAB BLOOD ORDERABLES Performing Organization Address City/[facility]/ZIP Code Phon e Number APS SPECTRA [...] 08/20/2021 Unless otherwise specified, test(s) performed at: [facility], [address] [place] [address] RADIO ANNOUNCER: Alec Payan M.D. For any questions, please call customer service at FREQUENCY:MONTHLY Resulting Agency Comment Specimen source: Blood Ernie Pompa MD LAB BLOOD ORDERABLES Performing Organization Address City/[facility] Phon e Number APS SPECTRA [facility] (ABNORMAL) Spectrae Chemistry (08/18/2021) P athologist Signature PTH 766 (H) 16 - 80 APS SPECTRA pg/mL [facility] Specimen (Source) Anatomical Collection Method Collection Time Re ceived Time Location / / Volume Laterality 08/18/2021 08/19/2021 8:21 PM CDT Narrative APS SPECTRA [facility] - 08/20/2021 Unless otherwise specified, test(s) performed at: [facility], [address] [place] [address] RADIO ANNOUNCER: Alec Payan M.D. For any questions, please call customer service at FREQUENCY:MONTHLY Resulting Agency Comment Specimen source: Plasma Ernie Pompa MD LAB BLOOD ORDERABLES Performing Organization Address City/[facility] Phon e Number APS SPECTRA [facility] (ABNORMAL) [...] 08/20/2021 Unless otherwise specified, test(s) performed at: [facility], [address] [place] [address] RADIO ANNOUNCER: Alec Payan M.D. For any questions, please [...] 08/19/2021 Unless otherwise specified, test(s) performed at: [facility], [address] [place] [address] RADIO ANNOUNCER: Alec Payan M.D. For any questions, please call customer service at FREQUENCY:MONTHLY Resulting Agency Comment Specimen source: Serum Ernie Pompa MD LAB BLOOD ORDERABLES Performing Organization Address City/State/ZIP Code Phon e Number APS SPECTRA [facility] documented in this encounter Visit Diagnoses Not on filedocumented in this encounter
--- OUTSIDE RECORDS SUMMARY | 2021-11-04 08:36 | XMS_ITS | Encounter Summary ---
:1945 Author Organization [facility] Address [address] [place] [address] Care Team Providers Name Role Phone Unavailable Primary Care Provider Unavailable Encounter Details Date Type Department Care Team Description 07/14/2021 [facility] Only [facility] O f Ernie Guzmán MD [phone] [place] [address] [place], [place] [phone] (Wo rk) Social History Tobacco Use [...] 07/15/2021 Unless otherwise specified, test(s) performed at: [facility], [address] [place] [address] COMPUTER GAME PROGRAMMER: Alec Payan M.D. For any questions, please call customer service at FREQUENCY:OTHER Resulting Agency Comment Specimen source: Blood Ernie Pompa MD LAB BLOOD ORDERABLES Performing Organization Address City/State/ZIP Code Phon e Number APS SPECTRA [facility] documented in this encounter Visit Diagnoses Not on filedocumented in this encounter
--- OUTSIDE RECORDS SUMMARY | 2021-11-04 08:36 | XMS_ITS | Encounter Summary ---
:1945 Author Organization [facility] Address [address] [place] [address] Care Team Providers Name Role Phone Unavailable Primary Care Provider Unavailable Encounter Details Date Type Department Care Team Description 10/13/2021 Orders Only [facility] O f Ernie Guzmán MD [address] [place] [address] [place], [place] [phone] (Wo rk) Social History Tobacco Use Types Packs/Day Years Used Date Smoking Tobacco: Unknown Comments: Smoking History Info:Patient n ot screened Sex Assigned at Date Recorded Not on file documented as of this encounter Plan of Treatment Not on filedocumented as of this encounter Procedures Procedure Name Priority Date/Time Associated Diagnosis Comme nts HEMATOLOGY Routine 10/13/2021 Results for thi s procedure are in the resu lts section. documented in this encounter Results (ABNORMAL) HEMATOLOGY (10/13/2021) Analysis Performed At Patho logist Time Signature Hemoglobin 9.8 (L) 14.0 - APS SPECTRA 18.0 g/dL [facility] Hemoglobin x 3 29.4 (L) 42.0 - APS SPECTRA 54.0 % [facility] Specimen (Source) Anatomical Collection Method Collection Time Re ceived Time Location / / Volume Laterality 10/13/2021 10/14/2021 7:59 AM CDT Narrative APS SPECTRA [facility] - 10/14/2021 Unless otherwise specified, test(s) performed at: [facility], [address] [place] [address], [place] [address] INSPECTOR AND MENDER: Alhaji Noguera M.D., Ph.D For any questions, please call customer service at FREQUENCY:OTHER Resulting Agency Comment Specimen source: Blood Ernie Pompa MD LAB BLOOD ORDERABLES Performing Organization Address City/State/ZIP Code Phon e Number APS SPECTRA [facility] documented in this encounter Visit Diagnoses Not on filedocumented in this encounter
--- OUTSIDE RECORDS SUMMARY | 2021-11-04 08:36 | XMS_ITS | Encounter Summary ---
:1945 Author Organization [facility] Address [address] [place] [address] Care Team Providers Name Role Phone Unavailable Primary Care Provider Unavailable Encounter Details Date Type Department Care Team Description 06/02/2021 Orders [facility] O f Ernie Guzmán MD [phone] [place] [address] [place], [place] [phone] (Wo rk) Social History Tobacco Use [...] 06/03/2021 Unless otherwise specified, test(s) performed at: [facility], [address] [place] [address] REEL CART OPERATOR: Alec Payan M.D. For any questions, please call customer service at FREQUENCY:OTHER Resulting Agency Comment Specimen source: Blood Ernie Pompa MD LAB BLOOD ORDERABLES Performing Organization Address City/State/ZIP Code Phon e Number APS SPECTRA [facility] documented in this encounter Visit Diagnoses Not on filedocumented in this encounter
--- OUTSIDE RECORDS SUMMARY | 2021-11-04 08:36 | XMS_ITS | Encounter Summary ---
:1945 Author Organization [facility] Address [address] [place] [address] Care Team Providers Name Role Phone Unavailable Primary Care Provider Unavailable Encounter Details Date Type Department Care Team Description 09/29/2021 [facility] O f Ernie Guzmán MD [address] [place] [address] [place], [place] [phone] (Wo rk) Social History Tobacco Use [...] 09/30/2021 Unless otherwise specified, test(s) performed at: [facility], [address] [place] [address], [place] [address] COMPENSATION BUSINESS PARTNER: Alhaji Noguera M.D., Ph.D For any questions, [...] 09/30/2021 Unless otherwise specified, test(s) performed at: [facility], [address] [place], [place] [address]francisca [place] [address] COMPENSATION BUSINESS PARTNER: Alhaji Noguera M.D., Ph.D For any questions, please call customer service at FREQUENCY:OTHER Resulting Agency Comment Specimen source: Blood Ernie Pompa MD LAB BLOOD ORDERABLES Performing Organization Address City/[facility] Code Phon e Number APS SPECTRA [facility] documented in this encounter Visit Diagnoses Not on filedocumented in this encounter
--- OUTSIDE RECORDS SUMMARY | 2021-11-04 08:36 | XMS_ITS | Encounter Summary ---
:1945 Author Organization [facility] Address [address] [place] [address] Care Team Providers Name Role Phone Unavailable Primary Care Provider Unavailable Encounter Details Date Type Department Care Team Description 08/11/2021 Treatment [facility] O f Ernie Guzmán MD [address] [place] [address] [place], [place] [address] [phone] (Wo rk) Social History Tobacco Use Types Packs/Day Years Used Date Smoking Tobacco: Unknown Comments: Smoking History Info:Patient n ot screened Sex Assigned at Date Recorded Not on file documented as of this encounter Miscellaneous Notes Dialysis Note - Ernie Pompa MD - 08/11/2021 10:15 AM CDT Date: August 11, 2021 Patient Name: Shaun Ocampo : 1945 Chart #: [id number] Sex: M This patient was personally seen [...] AM ) BP (sit): 97/38 AP(-) / RUBBER CUTTER AND SHAPE CARVER: 177/134 Pulse: 67 Chairside data as of [...] 50 mg IVP 1X Week 07/26/2021 07/25/2022 DIRECTOR SOFTWARE QUALITY ASSURANCE: Ernie Pompa MD LOCATION: [phone] SCHEDULE: -- 2nd Shift ACCESS: EDW: kg. DIALYZER: HD DURATION: NEEDLE SIZE: ANTICOAG: BATH: QB: ml/min QD: ml/min Subjective Tolerating dialysis well. 08/11: Continues to have problems with fluid gains. we have spent considerable time discussing this, he is trying to work on this but can't seem to avoid large gains. Will go to [place] for UF tomorrow, needs extra treatments every 2 weeks it looks like to maintain EDW. He does get SOB when >5K over dry weight in particular. 07/21/21: Continues to struggle with fluid gains, extra UF run scheduled tomorrow at [place]. He does feel more SOB when fluid overloaded. No new symptoms otherwise, he is enjoying the nicer weather which allows him to do more activity and not sit at home and drink fluids which he thinks will help with IDWG's. 07/14/21: Continues to have high gains, unfortunately [place] without staff to open tomorrow for extra [...] had steroid injections in knees yesterday at [facility]. To do PT as well. He pulled muscle in his lower arm on L side last week getting into car, hurt a lot but is improving. Fluid gains continue to be high, [place] not open on this week, says he will do his best withlimiting salt/fluid. HE does feel SOB with exertion with extra fluid on, no orthopnea. 05/26/21: Has SOB when >5 Kg over dry weight, extra run last week at [place] helped. Trying his best with fluid restriction. [...] extra run and we discussed going to [place] tomorrow for UF only run and he [...] again today, may need extra run at [place] if can't get down over next week. 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 06/10: Doing well overall, no new complaints, [...] Went to Urgent care -> ER in [place] yesterday,CT with R hydro but no obstructive [...] He had infiltration last week, dialyzed at [facility] on Sat and went well, access [...] (06/23/21) Vascular Access Assessment: Type of access: [id number] Surgeon - Lary GARDNER Access working well Impression and Plan Stable dialysis overall, no changes to prescription made Parsabiv to continue, calcitriol increase as able with Ca lower on this to get PTH to goal but is improving and phos is controlled Extra UF run tomorrow in [place], ongoing extra UF runs will likely be necessary with inability toget to EDW consistently Ernie Pompa MD [ Signed And locked electronically On 08/11/2021 at 10:17:39 AM ] Transcribed: Ernie Pompa ( 08/11/2021 ) documented in this encounter Plan of Treatment Not on filedocumented as of this encounter Visit Diagnoses Not on filedocumented in this encounter
--- OUTSIDE RECORDS SUMMARY | 2021-11-04 08:36 | XMS_ITS | Encounter Summary ---
:1945 Author Organization [facility] Address [address] [place] [address] Care Team Providers Name Role Phone Unavailable Primary Care Provider Unavailable Encounter Details Date Type Department Care Team Description 08/25/2021 [facility] O f Ernie Guzmán MD [address] [place] [address] [address] [place], [place] [phone] (Wo rk) Social History Tobacco Use [...] 08/27/2021 Unless otherwise specified, test(s) performed at: [facility], [address] [place] [address] PLACEMENT MANAGER: Alec Payan M.D. For any questions, please call customer service at FREQUENCY:OTHER Resulting Agency Comment Specimen source: Blood Ernie Pompa MD LAB BLOOD ORDERABLES Performing Organization Address City/State/ZIP Code Phon e Number APS SPECTRA [facility] documented in this encounter Visit Diagnoses Not on filedocumented in this encounter
--- OUTSIDE RECORDS SUMMARY | 2021-11-04 08:36 | XMS_ITS | Encounter Summary ---
:1945 Author Organization [facility] Address [address] [place] [address] Care Team Providers Name Role Phone Unavailable Primary Care Provider Unavailable Encounter Details Date Type Department Care Team Description 08/04/2021 Orders Only [facility] O f Ernie Guzmán MD [address] [place] [address] [place], [place] [phone] (Wo rk) Social History Tobacco Use [...] 08/06/2021 Unless otherwise specified, test(s) performed at: [facility], [address] [place] [address] OVEN DRIER TENDER: Alec Payan M.D. For any questions, please call customer service at FREQUENCY:OTHER Resulting Agency Comment Specimen source: Serum Ernie Pompa MD LAB BLOOD ORDERABLES Performing Organization Address City/[facility]/ZIP Code Phon e Number APS SPECTRA [facility] (ABNORMAL) Spectrae Chemistry (08/04/2021) P athologist Signature PTH 986 (H) 16 - 80 APS SPECTRA pg/mL [facility] Specimen (Source) Anatomical Collection Method Collection Time Re ceived Time Location / / Volume Laterality 08/04/2021 2021 4:27 PM CDT Narrative APS SPECTRA [facility] - 2021 Unless otherwise specified, test(s) performed at: [facility], [address] [place], [place] [address] OVEN DRIER TENDER: Alec Payan M.D. For any questions, please call customer service at FREQUENCY:OTHER Resulting Agency Comment Specimen source: Plasma Ernie Pompa MD LAB BLOOD ORDERABLES Performing Organization Address [facility] Phon e Number APS [...] 2021 Unless otherwise specified, test(s) performed at: [facility], [address] [place] [address] OVEN DRIER TENDER: Alec Payan M.D. For any questions, please call customer service at FREQUENCY:OTHER Resulting Agency Comment Specimen source: Blood Ernie Pompa MD LAB BLOOD ORDERABLES Performing Organization Address City/[facility] Phon e Number APS SPECTRA [facility] documented in this encounter Visit Diagnoses Not on filedocumented in this encounter
--- OUTSIDE RECORDS SUMMARY | 2021-11-04 08:36 | XMS_ITS | Encounter Summary ---
:1945 Author Organization [facility] Address [address] [place] [address] Care Team Providers Name Role Phone Unavailable Primary Care Provider Unavailable Encounter Details Date Type Department Care Team Description 07/14/2021 Treatment [facility] O f Ernie Guzmán MD [address] [place] [address] [place], [place] [address] [phone] (Wo rk) Social History Tobacco Use Types Packs/Day Years Used Date Smoking Tobacco: Unknown Comments: Smoking History Info:Patient n ot screened Sex Assigned at Date Recorded Not on file documented as of this encounter Miscellaneous Notes Dialysis Note - Ernie Pompa MD - 07/14/2021 9:22 AM CDT Date: Jul 14, 2021 Patient Name: Shaun Ocampo : 1945 Chart #: [id number] Sex: M This patient was personally seen [...] AM ) BP (sit): 99/43 AP(-) / MEDICAL SCRIBE: 152/133 Pulse: 67 Chairside data as of [...] mcg IVP Every 4 weeks 06/23/2021 06/22/2022 DENTISTRY TEACHER: Ernie Pompa MD LOCATION: [place] [phone] SCHEDULE: -- 2nd Shift ACCESS: EDW: kg. DIALYZER: HD DURATION: NEEDLE SIZE: ANTICOAG: BATH: QB: ml/min QD: ml/min Subjective Tolerating dialysis well. 07/14/21: Continues to have high gains, unfortunately [place] without staff to open tomorrow for extra [...] had steroid injections in knees yesterday at [facility]. To do PT as well. He pulled muscle in his lower arm on L side last week getting into car, hurt a lot but is improving. Fluid gains continue to be high, [place] not open on this week, says he will do his best withlimiting salt/fluid. HE does feel SOB with exertion with extra fluid on, no orthopnea. 05/26/21: Has SOB when >5 Kg over dry weight, extra run last week at [place] helped. Trying his best with fluid restriction. [...] extra run and we discussed going to [place] tomorrow for UF only run and he [...] again today, may need extra run at [place] if can't get down over next week. 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 06/10: Doing well overall, no new complaints, [...] Went to Urgent care -> ER in [place] yesterday,CT with R hydro but no obstructive [...] He had infiltration last week, dialyzed at [facility] on Sat and went well, access [...] (05/26/21) Vascular Access Assessment: Type of access: [id number]/2019 Surgeon - Lary GARDNER Access working well [...] to go further to get this as [place] not open but he doesn't feel he can drive that far Ernie Pompa MD [ Signed And locked electronically On 07/14/2021 at 09:24:45 AM ] Transcribed: Ernie Pompa ( 07/14/2021 ) documented in this encounter Plan of Treatment Not on filedocumented as of this encounter Visit Diagnoses Not on filedocumented in this encounter
--- OUTSIDE RECORDS SUMMARY | 2021-11-04 08:36 | XMS_ITS | Encounter Summary ---
:1945 Author Organization [facility] Address [address] [place] [address] Care Team Providers Name Role Phone Unavailable Primary Care Provider Unavailable Encounter Details Date Type Department Care Team Description 07/28/2021 Orders Only [facility] O f Ernie Guzmán MD [address] [place] [address] [place], [place] [phone] (Wo rk) Social History Tobacco Use [...] in this encounter Results (ABNORMAL) HEMATOLOGY (07/28/2021) [facility] gist Method Time Signature Hemoglobin 9.9 (L) [...] 07/29/2021 Unless otherwise specified, test(s) performed at: [email or web address], [address] [place] [address] PUMP ASSEMBLER: Alec Payan M.D. For any questions, please call customer service at FREQUENCY:OTHER Resulting Agency Comment Specimen source: Blood Ernie Pompa MD LAB BLOOD ORDERABLES Performing Organization Address City/State/ZIP Code Phon e Number APS SPECTRA [facility] documented in this encounter Visit Diagnoses Not on filedocumented in this encounter
--- OUTSIDE RECORDS SUMMARY | 2021-11-04 08:36 | XMS_ITS | Encounter Summary ---
:1945 Author Organization [facility] Address [address] [place] [address] Care Team Providers Name Role Phone Unavailable Primary Care Provider Unavailable Encounter Details Date Type Department Care Team Description 07/21/2021 Treatment [facility] Ernie Guzmán MD [address] [place] [address] [place], [place] [phone] (Wo rk) Social History Tobacco Use Types Packs/Day Years Used Date Smoking Tobacco: Unknown Comments: Smoking History Info:Patient n ot screened Sex Assigned at Date Recorded Not on file documented as of this encounter Miscellaneous Notes Dialysis Note - Ernie Pompa MD - 07/21/2021 9:02 AM CDT Date: July 21, 2021 Patient Name: Shaun Ocampo : 1945 Chart #: [id number] Sex: M This patient was personally seen [...] AM ) BP (sit): 112/56 AP(-) / POULTRY FARMWORKER: 158/144 Pulse: 77 Chairside data as of [...] mcg IVP Every 2 weeks 07/21/2021 07/20/2022 NUCLEAR WEAPONS SPECIALIST: Ernie Pompa MD LOCATION: [place] [phone] SCHEDULE: -W- 2nd Shift EDW: kg. DIALYZER: HD DURATION: NEEDLE SIZE: ANTICOAG: BATH: QB: ml/min QD: ml/min Subjective Tolerating dialysis well. 07/21/21: Continues to struggle with fluid gains, extra UF run scheduled tomorrow at [facility]. He does feel more SOB when fluid overloaded. No new symptoms otherwise, he is enjoying the nicer weather which allows him to do more activity and not sit at home and drink fluids which he thinks will help with IDWG's. 07/14/21: Continues to have high gains, unfortunately [facility] without staff to open tomorrow for extra [...] had steroid injections in knees yesterday at [facility]. To do PT as well. He pulled muscle in his lower arm on L side last week getting into car, hurt a lot but is improving. Fluid gains continue to be high, [facility] not open on this week, says he will do his best withlimiting salt/fluid. HE does feel SOB with exertion with extra fluid on, no orthopnea. 05/26/21: Has SOB when >5 Kg over dry weight, extra run last week at [facility] helped. Trying his best with fluid restriction. [...] extra run and we discussed going to [facility] tomorrow for UF only run and he [...] again today, may need extra run at [facility] if can't get down over next week. 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 06/10: Doing well overall, no new complaints, [...] Went to Urgent care -> ER in [place] yesterday,CT with R hydro but no obstructive [...] He had infiltration last week, dialyzed at [facility] on Sat and went well, access [...] prescription. Vascular Access Assessment Type of access: [id number]/2019 Surgeon - Lary GARDNER Access working well [...] at goal. Intact PTH is above goal. Oil Tank Car Cleaner will adjust binders and vitamin D per [...] euvolemia, extra UF run planned 07/22/21 at [facility] Transplant Status: Patient is not a candidate. Weight, co-morbidities, age Resuscitation Status Stable dialysis, no changes to prescription Extra UF run tomorrow at [facility] Continue work on lower IDWG's Monthly labs being drawn today rEnie Pompa MD [ Signed And locked electronically On 07/21/2021 at 09:05:19 AM ] Transcribed: Ernie Pompa ( 07/21/2021 ) documented in this encounter Plan of Treatment Not on filedocumented as of this encounter Visit Diagnoses Not on filedocumented in this encounter
--- OUTSIDE RECORDS SUMMARY | 2021-11-04 08:36 | XMS_ITS | Encounter Summary ---
:1945 Author Organization [facility] Address [address] [place] [address] Care Team Providers Name Role Phone Unavailable Primary Care Provider Unavailable Encounter Details Date Type Department Care Team Description 10/27/2021 Orders Only [facility] f Ernie Guzmán MD [address] [place] [address] [place], [place] [phone] (Wo rk) Social History Tobacco Use Types Packs/Day Years Used Date Smoking Tobacco: Unknown Comments: Smoking History Info:Patient n ot screened Sex Assigned at Date Recorded Not on file documented as of this encounter Plan of Treatment Not on filedocumented as of this encounter Procedures Procedure Name Priority Date/Time Associated Diagnosis Comme nts HEMATOLOGY Routine 10/27/2021 Results for thi s procedure are in the resu lts section. CHEMISTRY Routine 10/27/2021 Results for thi s procedure are in the resu lts section. documented in this encounter Results (ABNORMAL) Spectrae Chemistry (10/27/2021) P athologist Signature PTH 203 (H) 16 - 80 APS SPECTRA pg/mL [facility] Specimen (Source) Anatomical Collection Method Collection Time Re ceived Time Location / / Volume Laterality 10/27/2021 10/28/2021 7:55 AM CDT Narrative APS SPECTRA [facility] - 10/28/2021 Unless otherwise specified, test(s) performed at: [facility], [address] [place] [address], [place] [address] VESSEL LINER: Alhaji Noguera M.D., Ph.D For any questions, please call customer service at FREQUENCY:OTHER Resulting Agency Comment Specimen source: Plasma Ernie Pompa MD LAB BLOOD ORDERABLES Performing Organization Address City/State/ZIP Code Phon e Number APS SPECTRA [facility] (ABNORMAL) HEMATOLOGY (10/27/2021) Analysis Performed At Patho logist Time Signature Hemoglobin 9.3 (L) 14.0 - APS SPECTRA 18.0 g/dL [facility] Hemoglobin x 3 27.9 (L) 42.0 - APS SPECTRA 54.0 % [facility] Specimen (Source) Anatomical Collection Method Collection Time Re ceived Time Location / / Volume Laterality 10/27/2021 10/28/2021 8:19 AM CDT Narrative APS SPECTRA [facility] - 10/28/2021 Unless otherwise specified, test(s) performed at: [facility], [address] [place] [address] [place] [address] VESSEL LINER: Alhaji Noguera M.D., Ph.D For any questions, please call customer service at FREQUENCY:OTHER Resulting Agency Comment Specimen source: Blood Ernie Pompa MD LAB BLOOD ORDERABLES Performing Organization Address City/[facility] Phon e Number APS SPECTRA [facility] documented in this encounter Visit Diagnoses Not on filedocumented in this encounter
--- OUTSIDE RECORDS SUMMARY | 2021-11-04 08:36 | XMS_ITS | Encounter Summary ---
:1945 Author Organization [facility] Address [address] [place] [address] Care Team Providers Name Role Phone Unavailable Primary Care Provider Unavailable Encounter Details Date Type Department Care Team Description 06/09/2021 Orders Only [facility] f Ernie Guzmán MD [phone] [place] [address] [place], [place] [phone] (Wo rk) Social History Tobacco Use [...] 06/10/2021 Unless otherwise specified, test(s) performed at: [facility], [address] [place] [address] PIPELINE ENGINEER: Alec Payan M.D. For any questions, please call customer service at FREQUENCY:OTHER Resulting Agency Comment Specimen source: Blood Ernie Pompa MD LAB BLOOD ORDERABLES Performing Organization Address City/State/ZIP Code Phon e Number APS SPECTRA [facility] documented in this encounter Visit Diagnoses Not on filedocumented in this encounter
--- OUTSIDE RECORDS SUMMARY | 2021-11-04 08:36 | XMS_ITS | Encounter Summary ---
:1945 Author Organization [facility] Address [address] [place] [address] Care Team Providers Name Role Phone Unavailable Primary Care Provider Unavailable Encounter Details Date Type Department Care Team Description 09/13/2021 Orders Only [facility] f Ernie Guzmán MD [address] [place] [address] [place], [place] [phone] (Wo rk) Social History Tobacco Use Types Packs/Day Years Used Date Smoking Tobacco: Unknown Comments: Smoking History Info:Patient n ot screened Sex Assigned at Date Recorded Not on file documented as of this encounter Plan of Treatment Not on filedocumented as of this encounter Procedures Procedure Name Priority Date/Time Associated Diagnosis Comme nts CHEMISTRY Routine 09/13/2021 Results for thi s procedure are in the resu lts section. CHEMISTRY Routine 09/13/2021 Results for thi s procedure are in the resu lts section. documented in this encounter Results Spectrae Chemistry (09/13/2021) P athologist Signature Calcium 8.9 8.4 - 10.2 APS SPECTRA mg/dL [facility] Specimen (Source) Anatomical Collection Method Collection Time Re ceived Time Location / / Volume Laterality 09/13/2021 09/14/2021 10:0 3 AM CDT Narrative APS SPECTRA [facility] - 09/14/2021 Unless otherwise specified, test(s) performed at: [facility], [address] [place] [address] REMOTE CONTROL ASSEMBLER: Alec Payan M.D. For any questions, please call customer service at FREQUENCY:OTHER Resulting Agency Comment Specimen source: Serum Ernie Pompa MD LAB BLOOD ORDERABLES Performing Organization Address City/State/ZIP Code Phon e Number APS SPECTRA [facility] (ABNORMAL) Spectrae Chemistry (09/13/2021) P athologist Signature PTH 851 (H) 16 - 80 APS SPECTRA pg/mL [facility] Specimen (Source) Anatomical Collection Method Collection Time Re ceived Time Location / / Volume Laterality 09/13/2021 09/14/2021 11:1 0 AM CDT Narrative APS SPECTRA [facility] - 09/14/2021 Unless otherwise specified, test(s) performed at: [facility], [address] [place] [address] REMOTE CONTROL ASSEMBLER: Alec Payan M.D. For any questions, please call customer service at FREQUENCY:OTHER Resulting Agency Comment Specimen source: Plasma Ernie Pompa MD LAB BLOOD ORDERABLES Performing Organization Address City/[facility]/ZIP Code Phon e Number APS SPECTRA [facility] documented in this encounter Visit Diagnoses Not on filedocumented in this encounter
--- OUTSIDE RECORDS SUMMARY | 2021-11-04 08:36 | XMS_ITS | Encounter Summary ---
:1945 Author Organization [facility] Address [address] [place] [address] Care Team Providers Name Role Phone Unavailable Primary Care Provider Unavailable Encounter Details Date Type Department Care Team Description 06/30/2021 Treatment [facility] f Ernie Guzmán MD [address] [place] [address] [place], [place] [phone] (Wo rk) Social History Tobacco Use Types Packs/Day Years Used Date Smoking Tobacco: Unknown Comments: Smoking History Info:Patient n ot screened Sex Assigned at Date Recorded Not on file documented as of this encounter Miscellaneous Notes Dialysis Note - Ernie Pompa MD - 06/30/2021 11:03 AM CDT Date: Jun 30, 2021 Patient Name: Shaun Ocampo : 1945 Chart #: [id number] Sex: M This patient was personally seen [...] AM ) BP (sit): 100/42 AP(-) / CLASS 1 OWNER OPERATOR: 167/131 Pulse: 78 Chairside data as of [...] 05/28/2021 04/23/2021 04/02/2021 Access Flow [id number] Treatment Medication Orders Medication Sig Start Date [...] mcg IVP Every 4 weeks 06/23/2021 06/22/2022 ACOUSTICAL INSTALLER: Ernie Pompa MD LOCATION: [phone] SCHEDULE: -- 2nd Shift EDW: kg. DIALYZER: [...] improving. Fluid gains continue to be high, [facility] not open on this week, says he will do his best withlimiting salt/fluid. HE does feel SOB with exertion with extra fluid on, no orthopnea. 05/26/21: Has SOB when >5 Kg over dry weight, extra run last week at [facility] helped. Trying his best with fluid restriction. [...] extra run and we discussed going to [facility] tomorrow for UF only run and he [...] again today, may need extra run at [facility] if can't get down over next week. 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 06/10: Doing well overall, no new complaints, [...] Went to Urgent care -> ER in [place] yesterday,CT with R hydro but no obstructive [...] He had infiltration last week, dialyzed at [facility] on Sat and went well, access ok [...] prescription. Vascular Access Assessment Type of access: [id number]/2019 Surgeon Annita KUMARW Access working well Anemia [...] at goal. Intact PTH is above goal. Lab Asst will adjust binders and vitamin D per [...] to prescription Extra UF run tomorrow at [facility] Continue work on lower IDWG's Ernie Pompa MD [ Signed And locked electronically On 06/30/2021 at 11:05:31 AM ] Transcribed: Ernie Pompa ( 06/30/2021 ) documented in this encounter Plan of Treatment Not on filedocumented as of this encounter Visit Diagnoses Not on filedocumented in this encounter
--- OUTSIDE RECORDS SUMMARY | 2021-11-04 08:36 | XMS_ITS | Encounter Summary ---
:1945 Author Organization [facility] Address [address] [place] [address] Care Team Providers Name Role Phone Unavailable Primary Care Provider Unavailable Encounter Details Date Type Department Care Team Description 09/22/2021 Orders Only [facility] O f Ernie Guzmán MD [address] [place] [address] [place], [place] [phone] (Wo rk) Social History Tobacco Use [...] Received Time / Laterality Volume 09/22/2021 09/22/2021 [facility] Ordering Provider LAB BLOOD ORDERABLES Performing Organization Address City/State/ZIP Code Phon e Number [facility] (09/22/2021) athologist Signature % Urea 71 65 - 80 % APS SPECTRA Reduction [facility] Specimen (Source) Anatomical Collection Method Collection Time Re ceived Time Location / / Volume Laterality 09/22/2021 09/24/2021 4:03 PM CDT Narrative APS SPECTRA [facility] - 09/24/2021 Unless otherwise specified, test(s) performed at: [facility], [address] [place] [address], [place] [address] SALES ANALYTICS MANAGER: Alhaji Noguera M.D., Ph.D For any questions, please call customer service at FREQUENCY:MONTHLY Resulting Agency Comment Specimen source: Plasma Ernie Pompa MD LAB BLOOD ORDERABLES Performing Organization Address City/[facility]/ZIP Code Phon e Number APS SPECTRA [facility] [...] APS SPECTRA [facility] (ABNORMAL) Spectrae Chemistry (09/22/2021) [facility] gist Method Time Signature BUN 41 (H) [...] 09/24/2021 Unless otherwise specified, test(s) performed at: [facility], [address] [place] [address], [place] [address] SALES ANALYTICS MANAGER: Alhaji Noguera M.D., Ph.D For any questions, please call customer service at FREQUENCY:MONTHLY Resulting Agency Comment Specimen source: Serum Ernie Pompa MD LAB BLOOD ORDERABLES Performing Organization Address [facility] Phon e Number APS SPECTRA [facility] POST CHEMISTRY (09/22/2021) P athologist Signature BUN Post 12 6 - 19 APS SPECTRA Dialysis mg/dL [facility] Specimen (Source) Anatomical Collection Method Collection Time Re ceived Time Location / / Volume Laterality 09/22/2021 09/24/2021 4:03 PM CDT Narrative APS SPECTRA [facility] - 09/24/2021 Unless otherwise specified, test(s) performed at: [facility], [address] [place] [address] SALES ANALYTICS MANAGER: Alhaji Noguera M.D., Ph.D For any questions, please call customer service at FREQUENCY:MONTHLY Resulting Agency Comment Specimen source: Plasma Ernie Pompa MD LAB BLOOD ORDERABLES Performing Organization Address [facility] Phon e Number APS SPECTRA [facility] [...] 09/24/2021 Unless otherwise specified, test(s) performed at: [facility], [address] [place] [address] SALES ANALYTICS MANAGER: Alhaji Noguera M.D., Ph.D For any questions, [...] MD LAB BLOOD ORDERABLES Performing Organization Address City/[facility]/ZIP Code Phon e Number APS SPECTRA [facility] (ABNORMAL) Spectrae Chemistry (09/22/2021) P athologist Signature PTH 722 (H) 16 - 80 APS SPECTRA pg/mL [facility] Specimen (Source) Anatomical Collection Method Collection Time Re ceived Time Location / / Volume Laterality 09/22/2021 09/24/2021 2:25 PM CDT Narrative APS SPECTRA [facility] - 09/24/2021 Unless otherwise specified, test(s) performed at: [facility], [address] [facility] [place] [address] SALES ANALYTICS MANAGER: Alhaji Noguera M.D., Ph.D For any questions, please call customer service at FREQUENCY:MONTHLY Resulting Agency Comment Specimen source: Plasma Ernie Pompa MD LAB BLOOD ORDERABLES Performing Organization Address City/[facility] Phon e Number APS SPECTRA [facility] documented in this encounter Visit Diagnoses Not on filedocumented in this encounter
--- OUTSIDE RECORDS SUMMARY | 2021-11-04 08:36 | XMS_ITS | Encounter Summary ---
:1945 Author Organization [facility] Address [address] [place] [address] Care Team Providers Name Role Phone Unavailable Primary Care Provider Unavailable Encounter Details Date Type Department Care Team Description 06/16/2021 Orders Only [facility] O f Ernie Guzmán MD [address] [place] [address] [place], [place] [phone] (Wo rk) Social History Tobacco Use Types Packs/Day Years Used Date Smoking Tobacco: Unknown Comments: Smoking History Info:Patient n ot screened Sex Assigned at Date Recorded Not on file documented as of this encounter Plan of Treatment Not on filedocumented as of this encounter Procedures Procedure Name Priority Date/Time Associated Diagnosis Comme nts HEMATOLOGY Routine 06/16/2021 Results for thi s procedure are in the resu lts section. documented in this encounter Results (ABNORMAL) HEMATOLOGY (06/16/2021) Analysis Performed At Patho logist Time Signature Hemoglobin 10.9 (L) 14.0 - APS SPECTRA 18.0 g/dL [facility] Hemoglobin x 3 32.7 (L) 42.0 - APS SPECTRA 54.0 % [facility] Specimen (Source) Anatomical Collection Method Collection Time Re ceived Time Location / / Volume Laterality 06/16/2021 06/17/2021 12:5 3 PM CDT Narrative APS SPECTRA [facility] - 06/17/2021 Unless otherwise specified, test(s) performed at: [facility], [address] [place] [address] BOAT LOADER: Alec Payan M.D. For any questions, please call customer service at FREQUENCY:OTHER Resulting Agency Comment Specimen source: Blood Ernie Pompa MD LAB BLOOD ORDERABLES Performing Organization Address City/State/ZIP Code Phon e Number APS SPECTRA [facility] documented in this encounter Visit Diagnoses Not on filedocumented in this encounter
--- OUTSIDE RECORDS SUMMARY | 2021-11-04 08:36 | XMS_ITS | Encounter Summary ---
:1945 Author Organization [facility] Address [address] [place] [address] Care Team Providers Name Role Phone Unavailable Primary Care Provider Unavailable Encounter Details Date Type Department Care Team Description 10/13/2021 Treatment [facility] f Ernie Guzmán MD [address] [place] [address] [place], [place] [phone] (Wo rk) Social History Tobacco Use Types Packs/Day Years Used Date Smoking Tobacco: Unknown Comments: Smoking History Info:Patient n ot screened Sex Assigned at Date Recorded Not on file documented as of this encounter Miscellaneous Notes Dialysis Note - Ernie Pompa MD - 10/13/2021 12:07 PM CDT Date: Oct 13, 2021 Patient Name: Shaun Ocampo : 1945 Chart #: [id number] Sex: M This patient was personally seen for a basic visit as part of routine weekly dialysis care. A reviewof the dialysis treatment, blood pressure, estimated dry weight and recent lab values was made. These were discussed with the patient and staff as necessary. GEOPHYSICAL LABORATORY SUPERVISOR: Ernie Pompa MD LOCATION: [phone] SCHEDULE: M-W-F 2nd Shift ACCESS: EDW: kg. DIALYZER: HD DURATION: NEEDLE SIZE: ANTICOAG: BATH: QB: ml/min QD: ml/min Subjective Tolerating dialysis well. 10/13: Had GI bleeding on Monday, went to ER after dialysis, [facility], had 3u blood, EGDwithout obvious source, [...] and do periodic extra UF treatments at [facility] rather than risk more hypotension post-tx with use of midodrine and additional UF during treatments. He has fistulagram last week, went well and access working well since. 08/11: Continues to have problems with fluid gains. we have spent considerable time discussing this, he is trying to work on this but can't seem to avoid large gains. Will go to [facility] for UF tomorrow, needs extra treatments every 2 weeks it looks like to maintain EDW. He does get SOB when >5K over dry weight in particular. 07/21/21: Continues to struggle with fluid gains, extra UF run scheduled tomorrow at [facility]. He does feel more SOB when fluid overloaded. No new symptoms otherwise, he is enjoying the nicer weather which allows him to do more activity and not sit at home and drink fluids which he thinks will help with IDWG's. 07/14/21: Continues to have high gains, unfortunately [facility] without staff to open tomorrow for extra [...] had steroid injections in knees yesterday at [facility]. To do PT as well. He pulled muscle in his lower arm on L side last week getting into car, hurt a lot but is improving. Fluid gains continue to be high, [facility] not open on this week, says he will do his best withlimiting salt/fluid. HE does feel SOB with exertion with extra fluid on, no orthopnea. 05/26/21: Has SOB when >5 Kg over dry weight, extra run last week at [facility] helped. Trying his best with fluid restriction. [...] extra run and we discussed going to [facility] tomorrow for UF only run and he [...] again today, may need extra run at [facility] if can't get down over next week. 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 06/10: Doing well overall, no new complaints, [...] Went to Urgent care -> ER in [place] yesterday,CT with R hydro but no obstructive [...] He had infiltration last week, dialyzed at [facility] on Sat and went well, [...] virtually with video during the COVID-19 pandemic. Sahun is doing well. He has same chronic [...] (08/20/21) Vascular Access Assessment: Type of access: [id number] Surgeon - Lary GARDNER 08/2021: fistulagram at [facility] with angioplasty of stenosis completed Impression and [...] Name: Shaun Ocampo : 1945 Chart #: [id number] Sex: M Patient has transitioned out of the following type of facility within the past 30 days: Discharging Facility: [facility] Patient caregiver is present? If yes, [...]
--- OUTSIDE RECORDS SUMMARY | 2021-11-04 08:36 | XMS_ITS | Encounter Summary ---
:1945 Author Organization [facility] Address [address] [place] [address] Care Team Providers Name Role Phone Unavailable Primary Care Provider Unavailable Encounter Details Date Type Department Care Team Description 09/01/2021 Orders Only [facility] O f Ernie Guzmán MD [address] [place] [address] [place], [place] [phone] (Wo rk) Social History Tobacco Use [...] 09/03/2021 Unless otherwise specified, test(s) performed at: [facility], [address] [place] [address] STEVEDORE HOLD: Alec Payan M.D. For any questions, please call customer service at FREQUENCY:OTHER Resulting Agency Comment Specimen source: Serum Ernie Pompa MD LAB BLOOD ORDERABLES Performing Organization Address City/[facility] Phon e Number APS SPECTRA [facility] [...] 09/02/2021 Unless otherwise specified, test(s) performed at: [facility], [address] [place] [address] STEVEDORE HOLD: Alec Payan M.D. For any questions, please call customer service at FREQUENCY:OTHER Resulting Agency Comment Specimen source: Blood Ernie Pompa MD LAB BLOOD ORDERABLES Performing Organization Address City/[facility] Phon e Number APS SPECTRA [facility] documented in this encounter Visit Diagnoses Not on filedocumented in this encounter
--- OUTSIDE RECORDS SUMMARY | 2021-11-04 08:36 | XMS_ITS | Encounter Summary ---
:1945 Author Organization [facility] Address [address] [place] [address] Care Team Providers Name Role Phone Unavailable Primary Care Provider Unavailable Encounter Details Date Type Department Care Team Description 06/09/2021 Treatment [facility] Ernie Guzmán MD [address] [place] [address] [place], [place] [phone] (Wo rk) Social History Tobacco Use Types Packs/Day Years Used Date Smoking Tobacco: Unknown Comments: Smoking History Info:Patient n ot screened Sex Assigned at Date Recorded Not on file documented as of this encounter Miscellaneous Notes Dialysis Note - Ernie Pompa MD - 06/09/2021 10:34 AM CDT Date: Jun 09, 2021 Patient Name: Shaun Ocampo : 1945 Chart #: [id number] Sex: M This patient was personally seen [...] AM ) BP (sit): 115/55 AP(-) / MEDICAL PHYSICS TEACHER: 161/150 Pulse: 67 Chairside data as of [...] mcg IVP Every 2 weeks 06/09/2021 06/08/2022 TAILER OFF: Ernie Pompa MD LOCATION: [phone] SCHEDULE: -- 2nd Shift ACCESS: EDW: kg. [...] improving. Fluid gains continue to be high, [facility] not open on this week, says he will do his best withlimiting salt/fluid. HE does feel SOB with exertion with extra fluid on, no orthopnea. 05/26/21: Has SOB when >5 Kg over dry weight, extra run last week at [facility] helped. Trying his best with fluid restriction. [...] extra run and we discussed going to [facility] tomorrow for UF only run and he [...] again today, may need extra run at [facility] if can't get down over next week. 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 06/10: Doing well overall, no new complaints, [...] Went to Urgent care -> ER in [place] yesterday,CT with R hydro but no obstructive [...] He had infiltration last week, dialyzed at [facility] on Sat and went [...] (05/05/21) Vascular Access Assessment: Type of access: [id number] Surgeon - Lary GARDNER Access working well [...]
--- OUTSIDE RECORDS SUMMARY | 2021-11-04 08:36 | XMS_ITS | Encounter Summary ---
:1945 Author Organization [facility] Address [address] [place] [address] Care Team Providers Name Role Phone Unavailable Primary Care Provider Unavailable Encounter Details Date Type Department Care Team Description 06/23/2021 Orders Only [facility] Ernie Guzmán MD [phone] [place] [address] [place], [place] [phone] (Wo rk) Social History Tobacco Use [...] Provider LAB BLOOD ORDERABLES Performing Organization Address City/[facility]/ZIP Code Phon e Number KAMERON (ABNORMAL) HEMATOLOGY [...] 06/28/2021 Unless otherwise specified, test(s) performed at: [facility], [address] [place], [place] [id number] RECRUITING COORDINATOR: Alec Payan M.D. For any questions, please call customer service at FREQUENCY:MONTHLY Resulting Agency Comment Specimen source: Blood Ernie Pompa MD LAB BLOOD ORDERABLES Performing Organization Address City/[facility]/ZIP Code Phon e Number APS SPECTRA [facility] HD KINETICS (06/23/2021) P athologist Signature % Urea 71 65 - 80 % APS SPECTRA Reduction [facility] Specimen (Source) Anatomical Collection Method Collection Time Re ceived Time Location / / Volume Laterality 06/23/2021 06/28/2021 12:3 1 PM CDT Resulting Agency Comment Specimen source: Plasma Ernie Pompa MD LAB BLOOD ORDERABLES Performing Organization Address City/[facility]/ZIP Code Phon e Number APS SPECTRA [facility] POST CHEMISTRY (06/23/2021) P athologist Signature BUN Post 19 6 - 19 APS SPECTRA Dialysis mg/dL [facility] Specimen (Source) Anatomical Collection Method Collection Time Re ceived Time Location / / Volume Laterality 06/23/2021 06/28/2021 12:3 1 PM CDT Narrative APS SPECTRA [facility] - 06/28/2021 Unless otherwise specified, test(s) performed at: [facility], [address] [place] [address] RECRUITING COORDINATOR: Alec Payan, M.D. For any questions, please [...] 06/28/2021 Unless otherwise specified, test(s) performed at: [facility], [address] [place] [address] RECRUITING COORDINATOR: Alec Payan M.D. For any questions, please call customer service at FREQUENCY:MONTHLY Resulting Agency Comment Specimen source: Serum Ernie Pompa MD LAB BLOOD ORDERABLES Performing Organization Address City/[facility] Phon e Number APS SPECTRA [facility] (ABNORMAL) Spectrae Chemistry (06/23/2021) P athologist Signature PTH 1,243 (H) 16 - 80 APS SPECTRA pg/mL [facility] Specimen (Source) Anatomical Collection Method Collection Time Re ceived Time Location / / Volume Laterality 06/23/2021 06/28/2021 10:1 5 AM CDT Narrative APS SPECTRA [facility] - 06/28/2021 Unless otherwise specified, test(s) performed at: [facility], [address] [place] [address] RECRUITING COORDINATOR: Alec Payan M.D. For any questions, please call customer service at FREQUENCY:MONTHLY Resulting Agency Comment Specimen source: Plasma Ernie Pompa MD LAB BLOOD ORDERABLES Performing Organization Address City/[facility] Code Phon e Number APS SPECTRA [facility] documented in this encounter Visit Diagnoses Not on filedocumented in this encounter
--- OUTSIDE RECORDS SUMMARY | 2021-11-04 08:36 | XMS_ITS | Encounter Summary ---
:1945 Author Organization [facility] Address [address] [place] [address] Care Team Providers Name Role Phone Unavailable Primary Care Provider Unavailable Encounter Details Date Type Department Care Team Description 10/06/2021 Orders Only [facility] f Ernie Guzmán MD [phone] [place] [address] [place], [place] [phone] (Wo rk) Social History Tobacco Use Types Packs/Day Years Used Date Smoking Tobacco: Unknown Comments: Smoking History Info:Patient n ot screened Sex Assigned at Date Recorded Not on file documented as of this encounter Plan of Treatment Not on filedocumented as of this encounter Procedures Procedure Name Priority Date/Time Associated Diagnosis Comme nts HEMATOLOGY Routine 10/06/2021 Results for thi s procedure are in the resu lts section. documented in this encounter Results (ABNORMAL) HEMATOLOGY (10/06/2021) Analysis Performed At Patho logist Time Signature Hemoglobin 9.3 (L) 14.0 - APS SPECTRA 18.0 g/dL [facility] Hemoglobin x 3 27.9 (L) 42.0 - APS SPECTRA 54.0 % [facility] Specimen (Source) Anatomical Collection Method Collection Time Re ceived Time Location / / Volume Laterality 10/06/2021 10/07/2021 1:03 PM CDT Narrative APS SPECTRA [facility] - 10/07/2021 Unless otherwise specified, test(s) performed at: [facility], [address] [place] [address], [place] [address] [place] SEWER: Alhaji Noguera M.D., Ph.D For any questions, please call customer service at FREQUENCY:OTHER Resulting Agency Comment Specimen source: Blood Ernie Pompa MD LAB BLOOD ORDERABLES Performing Organization Address City/State/ZIP Code Phon e Number APS SPECTRA [facility] documented in this encounter Visit Diagnoses Not on filedocumented in this encounter
--- OUTSIDE RECORDS SUMMARY | 2021-11-04 08:36 | XMS_ITS | Encounter Summary ---
:1945 Author Organization [facility] Address [address] [place] [address] Care Team Providers Name Role Phone Unavailable Primary Care Provider Unavailable Encounter Details Date Type Department Care Team Description 09/08/2021 Orders Only [facility] f Ernie Guzmán MD [phone] [place] [address] [place], [place] [phone] (Wo rk) Social History Tobacco Use [...] 09/09/2021 Unless otherwise specified, test(s) performed at: [facility], [address] [place] [address] TELETYPE MECHANIC: Alec Payan M.D. For any questions, please call customer service at FREQUENCY:OTHER Resulting Agency Comment Specimen source: Blood Ernie Pompa MD LAB BLOOD ORDERABLES Performing Organization Address City/State/ZIP Code Phon e Number APS SPECTRA [facility] documented in this encounter Visit Diagnoses Not on filedocumented in this encounter
--- OUTSIDE RECORDS SUMMARY | 2021-11-04 08:37 | XMS_ITS | Encounter Summary ---
:1945 Author Organization [facility] Address [address] [place] [address] Care Team Providers Name Role Phone Unavailable Primary Care Provider Unavailable Encounter Details Date Type Department Care Team Description 04/07/2021 Orders Only [facility] f Ernie Guzmán MD [phone] [place] [address] [place], [place] [phone] (Wo rk) Social History Tobacco Use [...] Volume Laterality 04/07/2021 04/09/2021 11:4 3 AM MANAGER COPY Narrative APS SPECTRA [facility] - 04/09/2021 Unless otherwise specified, test(s) performed at: [facility], [address] [place] [address] NEWS VIDEOGRAPHER: Alec Payan M.D. For any questions, please call customer service at FREQUENCY:OTHER Resulting Agency Comment Specimen source: Blood Ernie Pmopa MD LAB BLOOD ORDERABLES Performing Organization Address City/State/ZIP Code Phon e Number APS SPECTRA [facility] documented in this encounter Visit Diagnoses Not on filedocumented in this encounter
--- OUTSIDE RECORDS SUMMARY | 2021-11-04 08:37 | XMS_ITS | Encounter Summary ---
:1945 Author Organization [facility] Address [address] [place] [address] Care Team Providers Name Role Phone Unavailable Primary Care Provider Unavailable Encounter Details Date Type Department Care Team Description 02/03/2021 Orders Only [facility] f Ernie Guzmán MD [address] [place] [address] [place], [place] [phone] (Wo rk) Social History Tobacco Use [...] Volume Laterality 02/03/2021 02/04/2021 11:2 7 AM BRAKE REPAIR SUPERVISOR Narrative APS SPECTRA [facility] - 02/04/2021 Unless otherwise specified, test(s) performed at: [facility], [address] [place] [address] ADVANCED ANALYTICS ASSOCIATE: Alec Payan M.D. For any questions, please call customer service at FREQUENCY:OTHER Resulting Agency Comment Specimen source: Blood Ernie Pompa MD LAB BLOOD ORDERABLES Performing Organization Address City/State/ZIP Code Phon e Number APS SPECTRA [facility] documented in this encounter Visit Diagnoses Not on filedocumented in this encounter
--- OUTSIDE RECORDS SUMMARY | 2021-11-04 08:37 | XMS_ITS | Encounter Summary ---
:1945 Author Organization [facility] Address [address] [place] [address] Care Team Providers Name Role Phone Unavailable Primary Care Provider Unavailable Encounter Details Date Type Department Care Team Description 05/19/2021 Orders Only [facility] f Ernie Guzmán MD [address] [place] [address] [place], [place] [phone] (Wo rk) Social History Tobacco Use [...] Provider LAB BLOOD ORDERABLES Performing Organization Address [facility] Phon e Number KAMERON IMMUNO CHEMISTRY (05/19/2021) P athologist Signature Hep B Surface Negative Negative APS SPECTRA Ag [facility] Specimen (Source) Anatomical Collection Method Collection Time Re ceived Time Location / / Volume Laterality 05/19/2021 05/20/2021 3:10 PM SUPERANNUATION CLERK Narrative APS SPECTRA [facility] - 05/20/2021 Unless otherwise specified, test(s) performed at: [facility], [address] [place], [place] [address] DIESEL TECHNICIAN: Alec Payan M.D. For any questions, please call customer service at FREQUENCY:MONTHLY Resulting Agency Comment Specimen source: Serum Ernie Pompa MD LAB BLOOD ORDERABLES Performing Organization Address [facility] Phon e Number APS SPECTRA [facility] HD KINETICS (05/19/2021) P athologist Signature % Urea 69 65 - 80 % APS SPECTRA Reduction [facility] Specimen (Source) Anatomical Collection Method Collection Time Re ceived Time Location / / Volume Laterality 05/19/2021 05/20/2021 3:12 PM SUPERANNUATION CLERK Narrative APS SPECTRA [facility] - 05/20/2021 Unless otherwise specified, test(s) performed at: [facility], [address] [place] [address] DIESEL TECHNICIAN: Alec Payan M.D. For any questions, please call customer service at FREQUENCY:MONTHLY Resulting Agency Comment Specimen source: Serum Ernie Pompa MD LAB BLOOD ORDERABLES Performing Organization Address [facility] Phon e Number APS SPECTRA [...] / Volume Laterality 05/19/2021 05/20/2021 3:10 PM SUPERANNUATION CLERK Narrative APS SPECTRA [facility] - 05/20/2021 Unless otherwise specified, test(s) performed at: [facility], [address] [place] [address] DIESEL TECHNICIAN: Alec Payan M.D. For any questions, [...] / Volume Laterality 05/19/2021 05/20/2021 2:08 PM SUPERANNUATION CLERK Narrative APS SPECTRA [facility] - 05/20/2021 Unless otherwise specified, test(s) performed at: [facility], [address] [place] [address] DIESEL TECHNICIAN: Alec Payan M.D. For any questions, [...] Volume Laterality 05/19/2021 05/20/2021 12:5 8 PM SUPERANNUATION CLERK Narrative APS SPECTRA [facility] - 05/20/2021 Unless otherwise specified, test(s) performed at: [facility], [address] [place] [address] DIESEL TECHNICIAN: Alec Payan M.D. For any questions, please call customer service at FREQUENCY:MONTHLY Resulting Agency Comment Specimen source: Blood Ernie Pompa MD LAB BLOOD ORDERABLES Performing Organization Address City/State/ZIP Code Phon e Number APS SPECTRA [facility] documented in this encounter Visit Diagnoses Not on filedocumented in this encounter
--- OUTSIDE RECORDS SUMMARY | 2021-11-04 08:37 | XMS_ITS | Encounter Summary ---
:1945 Author Organization [facility] Address [address] [place] [address] Care Team Providers Name Role Phone Unavailable Primary Care Provider Unavailable Encounter Details Date Type Department Care Team Description 03/03/2021 Orders Only [facility] f Ernie Guzmán MD [address] [place] [address] [place], [place] [phone] (Wo rk) Social History Tobacco Use Types Packs/Day Years Used Date Smoking Tobacco: Unknown Comments: Smoking History Info:Patient n ot screened Sex Assigned at Date Recorded Not on file documented as of this encounter Plan of Treatment Not on filedocumented as of this encounter Procedures Procedure Name Priority Date/Time Associated Diagnosis Comme nts HEMATOLOGY Routine 03/03/2021 Results for thi s procedure are in the resu lts section. CHEMISTRY Routine 03/03/2021 Results for thi s procedure are in the resu lts section. documented in this encounter Results (ABNORMAL) Spectrae Chemistry (03/03/2021) P athologist Signature Calcium 10.7 (H) 8.4 - 10.2 APS SPECTRA mg/dL [facility] Comment: Custom Exception Specimen (Source) Anatomical Collection Method Collection Time Re ceived Time Location / / Volume Laterality 03/03/2021 03/04/2021 2:44 PM OCCUPATIONAL THERAPIST'S ASSISTANT Narrative APS SPECTRA [facility] - 03/05/2021 Unless otherwise specified, test(s) performed at: [facility], [address] [place] [address] TABLE GAMES DEALER: Alec Payan M.D. For any questions, please call customer service at FREQUENCY:OTHER Resulting Agency Comment Specimen source: Serum Ernie Leither MD LAB BLOOD ORDERABLES Performing Organization Address City/[facility]/ZIP Code Phon e Number APS SPECTRA [facility] (ABNORMAL) HEMATOLOGY (03/03/2021) Analysis Performed At Patho logist Time Signature Hemoglobin 10.2 (L) 14.0 - APS SPECTRA 18.0 g/dL [facility] Hemoglobin x 3 30.6 (L) 42.0 - APS SPECTRA 54.0 % [facility] Specimen (Source) Anatomical Collection Method Collection Time Re ceived Time Location / / Volume Laterality 03/03/2021 03/04/2021 1:44 PM OCCUPATIONAL THERAPIST'S ASSISTANT Narrative APS SPECTRA [facility] - 03/04/2021 Unless otherwise specified, test(s) performed at: [facility], [address] [place] [address] TABLE GAMES DEALER: Alec Payan M.D. For any questions, please call customer service at FREQUENCY:OTHER Resulting Agency Comment Specimen source: Blood Ernie Pompa MD LAB BLOOD ORDERABLES Performing Organization Address City/[facility] Phon e Number APS SPECTRA [facility] documented in this encounter Visit Diagnoses Not on filedocumented in this encounter
--- OUTSIDE RECORDS SUMMARY | 2021-11-04 08:37 | XMS_ITS | Encounter Summary ---
:1945 Author Organization [facility] Address [address] [place] [address] Care Team Providers Name Role Phone Unavailable Primary Care Provider Unavailable Encounter Details Date Type Department Care Team Description 05/05/2021 Treatment [facility] O f Ernie Guzmán MD [address] [place] [address] [place], [place] [phone] (Wo rk) Social History Tobacco Use Types Packs/Day Years Used Date Smoking Tobacco: Unknown Comments: Smoking History Info:Patient n ot screened Sex Assigned at Date Recorded Not on file documented as of this encounter Miscellaneous Notes Dialysis Note - Ernie Pompa MD - 05/05/2021 10:18 AM CST Date: May 05, 2021 Patient Name: Shaun Ocampo : 1945 Chart #: [id number] Sex: M This patient was personally seen for a basic visit as part of routine weekly dialysis care. A reviewof the dialysis treatment, blood pressure, estimated dry weight and recent lab values was made. These were discussed with the patient and staff as necessary. Treatment Data for 05/05/2021 started at:8:09 AM Dialyzer: 180NRe Optiflux Na: 138 mEq/L Bicarb: 32 mEq/L Dialysate: 2.0 K, 2.25 Ca, 1.0 Mg, 100 Dextrose (G2231) Dialysate/Machine Temp (prescribed): 37 C Dialysate/Machine Temp (actual): 37 C BFR (prescribed): 400 BFR (actual): 400 Prescribed time: 04:00 EDW: 109 kg Access Type: Active (In Use):AVFistula-Standard/Left Upper Arm Pre Dialysis Vitals (for 05/05/2021 7:53 AM ) Pre BP (sit): 116/51 Pre Wt: 114.9 kg Temp: 98.4 F Post Dialysis Vitals (for 05/03/2021 12:39 PM ) Post BP (sit): 112/52 Post Wt: 111.6 kg Current Dialysis Vitals (for 05/05/2021 10:00 AM ) BP (sit): 110/50 AP(-) / ION IMPLANT MACHINE OPERATOR: 174/144 Pulse: 73 Chairside data as of 05/05/2021 10:00 AM Last 3 Treatments 05/03/2021 04/30/2021 04/28/2021 EDW (kg) 109 109 109 Weight Pre (kg) 115.1 113.9 115.1 Weight Post (kg) 111.6 109.8 110.5 Dialytic Weight Loss (kg) -3.5 -4.1 -4.6 EDW Deviation (kg) 2.6 0.8 1.5 BP Sit Pre 120/59 116/30 90/42 BP Sit Post 112/52 120/51 112/48 UF Rate (mL/kg/hr) 7 9 9 Prescribed BFR 400 400 400 Average Delivered BFR 410 410 410 Prescribed Treatment Time 04:00 04:00 04:00 Actual Treatment Time 04:25 04:00 04:31 Last 3 Values 04/23/2021 04/02/2021 02/05/2021 Access Flow 1249 [id number] 1384 Treatment Medication Orders Medication Sig Start Date End Date Etelcalcetide (Parsabiv) 5 mg IVP 3X Week Post Dialysis 04/28/2021 04/27/2022 Heparin Sodium (Porcine) 1,000 Units/mL Systemic 2000 units IVP Every Treatment 03/29/2021 03/28/2022 Heparin Sodium (Porcine) 1,000 Units/mL Systemic 1000 units IVP Every Treatment 03/29/2021 03/28/2022 Iron Sucrose (Venofer) 50 mg IVP 1X Week 04/12/2021 04/11/2022 Mircera 75 mcg IVP Every 2 weeks 04/28/2021 04/27/2022 BUSINESS LAWYER: Ernie Pompa MD LOCATION: [phone] SCHEDULE: M-W-F 2nd Shift ACCESS: EDW: kg. DIALYZER: HD DURATION: NEEDLE SIZE: ANTICOAG: BATH: QB: ml/min QD: ml/min Subjective Tolerating dialysis well. 05/05/21: He is tolerating Parsabiv, Ca in [...] extra run and we discussed going to [place] tomorrow for UF only run and he [...] again today, may need extra run at [place] if can't get down over next week. 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 06/10: Doing well overall, no new complaints, [...] Went to Urgent care -> ER in [place] yesterday,CT with R hydro but no obstructive [...] He had infiltration last week, dialyzed at [facility] on Sat and went well, access [...] foot ulcer E13.621 L97.501 Exam Respiratory - nl effort Cardiovascular Regular rate. Regular rhythm. [...] and no changes were made. BUN mg/dL 61 (04/21/21) 63 (03/24/21) 46 (02/17/21) 51 (01/20/21) 44 (12/23/20) UREA NITROGEN (MG/DL) IN SER/PLAS - POST DIALYSIS mg/dL 17 (04/21/21) 16 (03/24/21) 13 (02/17/21) 11 (01/20/21) 11 (12/23/20) URR % 72 (04/21/21) 75 (03/24/21) 72 (02/17/21) 78 (01/20/21) 75 (12/23/20) spKt/V Gotch 1.6 (04/21/21) 1.73 (03/24/21) 1.56 (02/17/21) 1.88 (01/20/21) 1.72 (12/23/20) eKdrt/V 1.39 (04/21/21) 1.5 (03/24/21) 1.36 (02/17/21) 1.62 (01/20/21) 1.49 (12/23/20) spKt/V (Daugirdas II) 1.5300 (04/21/21) 1.6300 (03/24/21) 1.4900 (02/17/21) 1.8000 (01/20/21) 1.6600 (12/23/20) HEMOGLOBIN (G/DL) IN BLOOD g/dL 10.4 (04/28/21) 10.8 (04/21/21) 11.4 (04/14/21) 10.8 (04/07/21) 11.0 (03/31/21) PLATELETS 1000/mcL 155 (04/21/21) 135 (03/24/21) 190 (02/17/21) 186 (01/20/21) 168 (12/23/20) IRON SATURATION % 27 (04/21/21) 28 (03/24/21) 20 (02/17/21) 24 (01/20/21) 25 (12/23/20) FERRITIN ng/mL 857 (03/24/21) 837 (02/24/21) 925 (01/27/21) 837 (12/23/20) 1317 (09/23/20) ALBUMIN (G/DL) g/dL 4.0 (04/21/21) 3.9 (03/24/21) 3.7 (02/17/21) Sodium mEq/L 136 (04/21/21) 135 (03/24/21) 136 (02/17/21) POTASSIUM (MMOL/L) IN SER/PLAS mEq/L 5.4 (04/21/21) 5.7 (03/24/21) 4.8 (02/17/21) BICARBONATE (CO2) mEq/L 20 (04/21/21) 23 (03/24/21) 26 (02/17/21) 25 OH VITAMIN D ng/mL 38.3 (03/24/21) 37.9 (09/23/20) 37.9 (03/25/20) BUN/CREATININE (MASS RATIO) IN SER/PLAS 8.8 (04/21/21) 8.4 (03/24/21) 6.5 (02/17/21) Calcium mg/dL 9.6 (04/21/21) 9.7 (03/31/21) 10.6 (03/24/21) Calcium Phos Product 45 (04/21/21) 58 (03/24/21) 58 (02/17/21) CALCIUM (MG/DL) CORRECTED FOR ALBUMIN IN SER/PLAS mg/dL 9.6 (04/21/21) 10.7 (03/24/21) 10.6 (02/17/21) PHOSPHATE (MG/DL) IN SER/PLAS mg/dL 4.7 (04/21/21) 5.5 (03/24/21) 5.6 (02/17/21) IPTH pg/mL 1441 (04/21/21) 1309 (03/31/21) 977 (03/24/21) Vascular Access Assessment: Type of access: [id number] Surgeon - Lary GARDNER Access working well Impression and Plan Stable dialysis overall, no changes to prescription made Parsabiv to be titrated given PTH still elevated and phos controlled, Ca is now in range Ernie Pompa MD [ Signed And locked electronically On 05/05/2021 at 10:19:44 AM ] Transcribed: Ernie Pompa ( 05/05/2021 ) documented in this encounter Plan of Treatment Not on filedocumented as of this encounter Visit Diagnoses Not on filedocumented in this encounter
--- OUTSIDE RECORDS SUMMARY | 2021-11-04 08:37 | XMS_ITS | Encounter Summary ---
:1945 Author Organization [facility] Address [address] [place] [address] Care Team Providers Name Role Phone Unavailable Primary Care Provider Unavailable Encounter Details Date Type Department Care Team Description 05/26/2021 Treatment [facility] f Ernie Guzmán MD [address] [place] [address] [place], [place] [phone] [phone] (Wo rk) Social History Tobacco Use Types Packs/Day Years Used Date Smoking Tobacco: Unknown Comments: Smoking History Info:Patient n ot screened Sex Assigned at Date Recorded Not on file documented as of this encounter Miscellaneous Notes Dialysis Note - Ernie Pompa MD - 05/26/2021 10:14 AM CST Date: May 26, 2021 Patient Name: Shaun Ocampo : 1945 Chart #: [id number] Sex: M This patient was personally seen [...] AM ) BP (sit): 117/59 AP(-) / CURTAIN ROLLER ASSEMBLER: 176/154 Pulse: 78 Chairside data as of [...] mcg IVP Every 2 weeks 05/26/2021 05/25/2022 MANAGER POKER: Ernie Pompa MD LOCATION: [facility] [phone] SCHEDULE: -- 2nd Shift EDW: kg. DIALYZER: HD DURATION: NEEDLE SIZE: ANTICOAG: BATH: QB: ml/min QD: ml/min Subjective Tolerating dialysis well. 05/26/21: Has SOB when >5 Kg over dry weight, extra run last week at [facility] helped. Trying his best with fluid restriction. [...] well. He had extra run prior to [facility] and ran [facility] that week [...] extra run and we discussed going to [facility] tomorrow for UF only run and he [...] again today, may need extra run at [facility] if can't get down over next week. [...] for ureteral ?tumor early next month in [place]. 06/10: Doing well overall, no new complaints, [...] Went to Urgent care -> ER in [place] yesterday,CT with R hydro but no obstructive [...] He had infiltration last week, dialyzed at [facility] on Sat and went well, access [...] prescription. Vascular Access Assessment Type of access: [id number]/2019 Surgeon - Lary KUMARW Access working well [...] at goal. Intact PTH is above goal. Jboss Architect will adjust binders and vitamin D per [...] as tolerated, may need extra run at [facility] again if can't achieve dry weight Continue [...]
--- OUTSIDE RECORDS SUMMARY | 2021-11-04 08:37 | XMS_ITS | Encounter Summary ---
:1945 Author Organization [facility] Address [address] [place] [address] Care Team Providers Name Role Phone Unavailable Primary Care Provider Unavailable Encounter Details Date Type Department Care Team Description 05/17/2021 Orders [facility] f Ernie Guzmán MD [address] [place] [address] [place], [place] [phone] (Wo rk) Social History Tobacco Use [...] / Volume Laterality 05/17/2021 05/18/2021 1:48 PM FACTORY EXPERT Narrative APS SPECTRA [facility] - 05/18/2021 Unless otherwise specified, test(s) performed at: [facility], [address] [place] [address] IRRIGATIONIST DESIGNER: Alec Payan M.D. For any questions, please [...] Volume Laterality 05/17/2021 05/18/2021 11:1 2 AM FACTORY EXPERT Narrative [facility]PS SPECTRA [facility] - 05/18/2021 Unless otherwise specified, test(s) performed at: [facility], [address] [place] [address] IRRIGATIONIST DESIGNER: Alec Payan M.D. For any questions, please call customer service at FREQUENCY:OTHER Resulting Agency Comment Specimen source: Serum Ernie Pompa MD LAB BLOOD ORDERABLES Performing Organization Address City/[facility]/ZIP Code Phon e Number [facility]PS SPECTRA [facility] documented in this encounter Visit Diagnoses Not on filedocumented in this encounter
--- OUTSIDE RECORDS SUMMARY | 2021-11-04 08:37 | XMS_ITS | Encounter Summary ---
:1945 Author Organization [facility] Address [address] [place] [address] Care Team Providers Name Role Phone Unavailable Primary Care Provider Unavailable Encounter Details Date Type Department Care Team Description 03/31/2021 Orders [facility] O f Ernie Guzmán MD [address] [place] [address] [place], [place] [phone] (Wo rk) Social History Tobacco Use [...] Volume Laterality 03/31/2021 04/01/2021 10:3 5 PM RESIDENTIAL ADVISOR Narrative [facility]PS SPECTRA [facility] - 04/02/2021 Unless otherwise specified, test(s) performed at: [facility], [address] [place] [address] WASTE EXAMINER: Alec Payan M.D. For any questions, please call customer service at FREQUENCY:OTHER Resulting Agency Comment Specimen source: Serum Ernie Pompa MD LAB BLOOD ORDERABLES Performing Organization Address City/[facility]/ZIP Code Phon e Number APS SPECTRA [facility] (ABNORMAL) Spectrae Chemistry (03/31/2021) P athologist Signature PTH 1,309 (H) 16 - 80 APS SPECTRA pg/mL [facility] Specimen (Source) Anatomical Collection Method Collection Time Re ceived Time Location / / Volume Laterality 03/31/2021 04/01/2021 4:18 PM RESIDENTIAL ADVISOR Narrative [facility]PS S[facility]RA [facility] - 04/02/2021 Unless otherwise specified, test(s) performed at: [facility], [address] [place], [place] [id number] WASTE EXAMINER: Alec Payan M.D. For any questions, please call customer service at FREQUENCY:OTHER Resulting Agency Comment Specimen source: Plasma Ernie Pompa MD LAB BLOOD ORDERABLES Performing Organization Address [facility] Phon e Number APS SPECTRA [facility] (ABNORMAL) HEMATOLOGY (03/31/2021) Analysis Performed At Patho logist Time Signature Hemoglobin 11.0 (L) 14.0 - APS SPECTRA 18.0 g/dL [facility] Hemoglobin x 3 33.0 (L) 42.0 - APS SPECTRA 54.0 % [facility] Specimen (Source) Anatomical Collection Method Collection Time Re ceived Time Location / / Volume Laterality 03/31/2021 04/01/2021 3:40 PM RESIDENTIAL ADVISOR Narrative APS SPECTRA [facility] - 04/02/2021 Unless otherwise specified, test(s) performed at: [facility], [address] [place] [address] WASTE EXAMINER: Alec Payan M.D. For any questions, please call customer service at FREQUENCY:OTHER Resulting Agency Comment Specimen source: Blood Ernie Pompa MD LAB BLOOD ORDERABLES Performing Organization Address City/[facility] Phon e Number APS SPECTRA [facility] documented in this encounter Visit Diagnoses Not on filedocumented in this encounter
--- OUTSIDE RECORDS SUMMARY | 2021-11-04 08:37 | XMS_ITS | Encounter Summary ---
:1945 Author Organization [facility] Address [address] [place] [address] Care Team Providers Name Role Phone Unavailable Primary Care Provider Unavailable Encounter Details Date Type Department Care Team Description 01/13/2021 Orders Only [facility] f Ernie Guzmán MD [phone] [place] [address] [place], [place] [phone] (Wo rk) Social History Tobacco Use [...] 01/14/2021 Unless otherwise specified, test(s) performed at: [facility], [address] [place] [address] CHIEF MECHANICAL OFFICER: Alec Payan M.D. For any questions, please call customer service at FREQUENCY:OTHER Resulting Agency Comment Specimen source: Blood Ernie Pompa MD LAB BLOOD ORDERABLES Performing Organization Address City/State/ZIP Code Phon e Number APS SPECTRA [facility] documented in this encounter Visit Diagnoses Not on filedocumented in this encounter
--- OUTSIDE RECORDS SUMMARY | 2021-11-04 08:37 | XMS_ITS | Encounter Summary ---
:1945 Author Organization [facility] Address [address] [place] [address] Care Team Providers Name Role Phone Unavailable Primary Care Provider Unavailable Encounter Details Date Type Department Care Team Description 02/03/2021 Treatment [facility] O Ernie Gómez MD [address] [place] [address] [place], [place] [phone] (Wo rk) Social History Tobacco Use Types Packs/Day Years Used Date Smoking Tobacco: Unknown Comments: Smoking History Info:Patient n ot screened Sex Assigned at Date Recorded Not on file documented as of this encounter Miscellaneous Notes Dialysis Note - Ernie Pompa MD - 02/03/2021 11:33 AM CST Date: Feb 03, 2021 Patient Name: Shaun Ocampo : 1945 Chart #: [id number] Sex: M This patient was personally seen [...] 2.0 mcg ORAL Every Treatment 12/30/2020 12/29/2021 GLASS BLOWER HELPER: Ernie Pompa MD LOCATION: [facility] [phone] SCHEDULE: M-W- 2nd Shift ACCESS: EDW: kg. [...] for ureteral ?tumor early next month in [place]. 06/10: Doing well overall, no new complaints, [...] Went to Urgent care -> ER in [place] yesterday,CT with R hydro but no obstructive [...] had infiltration last week, dialyzed at [facility] on Sat and went well, access [...] (11/18/20) Vascular Access Assessment: Type of access: [id number] Surgeon - Lary GARDNER Access working well [...]
--- OUTSIDE RECORDS SUMMARY | 2021-11-04 08:37 | XMS_ITS | Encounter Summary ---
:1945 Author Organization [facility] Address [address] [place] [address] Care Team Providers Name Role Phone Unavailable Primary Care Provider Unavailable Encounter Details Date Type Department Care Team Description 01/06/2021 Orders Only [facility] O f Ernie Guzmán MD [address] [place] [address] [place], [place] [phone] (Wo rk) Social History Tobacco Use [...] 01/07/2021 Unless otherwise specified, test(s) performed at: [facility], [address] [place] [address] DEPUTY CLERK: Alec Payan M.D. For any questions, please call customer service at FREQUENCY:OTHER Resulting Agency Comment Specimen source: Blood Ernie Pompa MD LAB BLOOD ORDERABLES Performing Organization Address City/State/ZIP Code Phon e Number APS SPECTRA [facility] documented in this encounter Visit Diagnoses Not on filedocumented in this encounter
--- OUTSIDE RECORDS SUMMARY | 2021-11-04 08:37 | XMS_ITS | Encounter Summary ---
:1945 Author Organization [facility] Address [address] [place] [address] Care Team Providers Name Role Phone Unavailable Primary Care Provider Unavailable Encounter Details Date Type Department Care Team Description 04/21/2021 Orders Only [facility] O f Ernie Guzmán MD [address] [place] [address] [place], [place] [phone] (Wo rk) Social History Tobacco Use [...] Received Time / Laterality Volume 04/21/2021 04/21/2021 Kmaeron Ordering Provider LAB BLOOD ORDERABLES Performing Organization Address City/[facility] [address] [facility]/ZIP Code Phon e Number KAMERON (ABNORMAL) Spectrae Chemistry (04/21/2021) athologist Signature PTH 1,441 (H) 16 - 80 APS SPECTRA pg/mL [facility] Specimen (Source) Anatomical Collection Method Collection Time Re ceived Time Location / / Volume Laterality 04/21/2021 04/22/2021 1:39 PM LENS SHAPER GRINDER Narrative APS SPECTRA [facility] - 04/23/2021 Unless otherwise specified, test(s) performed at: [facility], [address] [place], [place] [id number] COMMUNICATIONS CONTROLLER: Alec Payan M.D. For any questions, please call customer service at FREQUENCY:MONTHLY Resulting Agency Comment Specimen source: Plasma Ernie Pompa MD LAB BLOOD ORDERABLES Performing Organization Address [facility] Phon e Number APS SPECTRA [facility] IMMUNO CHEMISTRY (04/21/2021) athologist [facility] Hep B Surface Negative Negative APS SPECTRA Ag [facility] Specimen (Source) Anatomical Collection Method Collection Time Re ceived Time Location / / Volume Laterality 04/21/2021 04/22/2021 3:00 PM LENS SHAPER GRINDER Narrative APS SPECTRA [facility] - 04/22/2021 Unless otherwise specified, test(s) performed at: [facility], [address] [place] [address] COMMUNICATIONS CONTROLLER: Alec Payan M.D. For any questions, please call customer service at FREQUENCY:MONTHLY Resulting Agency Comment Specimen source: Serum Ernie Pompa MD LAB BLOOD ORDERABLES Performing Organization Address City/[facility] [address] [facility]/ZIP [facility] Phon e Number APS SPECTRA [facility] HD KINETICS (04/21/2021) athologist Signature % Urea 72 65 - 80 % APS SPECTRA Reduction [facility] Specimen (Source) Anatomical Collection Method Collection Time Re ceived Time Location / / Volume Laterality 04/21/2021 04/22/2021 5:02 PM LENS SHAPER GRINDER Resulting Agency Comment Specimen source: Plasma Ernie Pompa MD LAB BLOOD ORDERABLES Performing Organization Address City/State/ZIP Code Phon e Number [facility]PS SPECTRA [facility] POST CHEMISTRY (04/21/2021) P athologist Signature BUN Post 17 6 - 19 APS SPECTRA Dialysis mg/dL [facility] Specimen (Source) Anatomical Collection Method Collection Time Re ceived Time Location / / Volume Laterality 04/21/2021 04/22/2021 5:01 PM LENS SHAPER GRINDER Narrative APS SPECTRA [facility] - 04/22/2021 Unless otherwise specified, test(s) performed at: [facility], [address] [place] [address] COMMUNICATIONS CONTROLLER: Alec Payan M.D. For any questions, [...] / Volume Laterality 04/21/2021 04/22/2021 3:00 PM LENS SHAPER GRINDER Narrative APS SPECTRA [facility] - 04/22/2021 Unless otherwise specified, test(s) performed at: [facility], [address] [place] [address] COMMUNICATIONS CONTROLLER: Alec Payan M.D. For any questions, [...] / Volume Laterality 04/21/2021 04/22/2021 1:17 PM LENS SHAPER GRINDER Narrative APS SPECTRA [facility] - 04/22/2021 Unless otherwise specified, test(s) performed at: [facility], [address] [place] [address] COMMUNICATIONS CONTROLLER: Alec Payan M.D. For any questions, please call customer service at FREQUENCY:MONTHLY Resulting Agency Comment Specimen source: Blood Ernie Pompa MD LAB BLOOD ORDERABLES Performing Organization Address City/State/ZIP Code Phon e Number APS SPECTRA [facility] documented in this encounter Visit Diagnoses Not on filedocumented in this encounter
--- OUTSIDE RECORDS SUMMARY | 2021-11-04 08:37 | XMS_ITS | Encounter Summary ---
:1945 Author Organization [facility] Address [address] [place] [address] Care Team Providers Name Role Phone Unavailable Primary Care Provider Unavailable Encounter Details Date Type Department Care Team Description 03/03/2021 Treatment [facility] O Ernie Gómez MD [address] [place] [address] [place], [place] [phone] (Wo rk) Social History Tobacco Use Types Packs/Day Years Used Date Smoking Tobacco: Unknown Comments: Smoking History Info:Patient n ot screened Sex Assigned at Date Recorded Not on file documented as of this encounter Miscellaneous Notes Dialysis Note - Ernie Pompa MD - 03/03/2021 9:56 AM CST Date: Mar 03, 2021 Patient Name: Shaun Ocampo : 1945 Chart #: [id number] Sex: M This patient was personally seen [...] AM ) BP (sit): 124/50 AP(-) / DOLL EYE SETTER: 188/160 Pulse: 72 Chairside data as of [...] 11/20/2020 Access Flow 1384 > 2000 1432 CANDLEMAKER: Ernie Pompa MD LOCATION: [place] [phone] SCHEDULE: -- 2nd Shift EDW: kg. DIALYZER: [...] again today, may need extra run at [place] if can't get down over next week. [...] for ureteral ?tumor early next month in [place]. 06/10: Doing well overall, no new complaints, [...] Went to Urgent care -> ER in [place] yesterday,CT with R hydro but no obstructive [...] feels quite well, was out on [place] yesterday in the nice weather and has [...] He had infiltration last week, dialyzed at [facility] on Sat and went well, access ok [...] prescription. Vascular Access Assessment Type of access: [id number]/2019 Surgeon - Lary KUMARW Access working well [...] above goal. Intact PTH is at goal. Manager Welding will adjust binders and vitamin D per [...]
--- OUTSIDE RECORDS SUMMARY | 2021-11-04 08:37 | XMS_ITS | Encounter Summary ---
:1945 Author Organization [facility] Address [address] [place] [address] Care Team Providers Name Role Phone Unavailable Primary Care Provider Unavailable Encounter Details Date Type Department Care Team Description 03/24/2021 Orders Only [facility] O f Ernie Guzmán MD [address] [place] [address] [place], [place] [phone] (Wo rk) Social History Tobacco Use [...] and its performa nce characteristics determined by [email or web address]. It has not been cleared or approved by the FDA. The laboratory is regulated under CLIA a s qualified to perform high complexity testing. This test is used fo r clinical purposes. It should not be regarded as investigational or fo r research. Specimen (Source) Anatomical Collection Method Collection Time Re ceived Time Location / / Volume Laterality 03/24/2021 03/26/2021 11:3 3 AM WATER TESTER Narrative APS SPECTRA [facility] - 03/29/2021 Unless otherwise specified, test(s) performed at: [email or web address], [address] [place] [address] INDUSTRIAL PHARMACIST: Alec Payan M.D. For any questions, please [...] above test result was obtained using Siemens MobileSpacesaur XP chemiluminescent method. Results obtaine d with different assay methods or kits cannot be used interchangeably. Specimen (Source) Anatomical Collection Method Collection Time Re ceived Time Location / / Volume Laterality 03/24/2021 03/26/2021 12:2 9 PM WATER TESTER Resulting Agency Comment Specimen source: Serum Ernie Pompa MD LAB BLOOD ORDERABLES Performing Organization Address [facility] Code Phon e Number APS SPECTRA [...] Provider LAB BLOOD ORDERABLES Performing Organization Address [facility] Phon e Number KAMERON SPECIAL CHEMISTRY (03/24/2021) P athologist Signature Vitamin D, 38.3 30.0 - APS SPECTRA 25-OH, Total 100.0 [facility] ng/mL Comment: Vitamin D Status Classification: Deficiency ? <10.0 ng/mL Insufficiency ?10.0-30.0 ng/mL Sufficiency ?30.0-100.0 ng/mL Toxicity ? >100.0 ng/mL Specimen (Source) Anatomical Collection Method Collection Time Re ceived Time Location / / Volume Laterality 03/24/2021 03/26/2021 12:2 9 PM WATER TESTER Narrative APS SPECTRA [facility] - 03/27/2021 Unless otherwise specified, test(s) performed at: [email or web address], [address] [place] [address] INDUSTRIAL PHARMACIST: Alec Payan M.D. For any questions, please call customer service at FREQUENCY:MONTHLY Resulting Agency Comment Specimen source: Serum Ernie Pompa MD LAB BLOOD BANK TEST ORDERABL ES Performing Organization Address City/[facility] Phon e Number APS SPECTRA [facility] (ABNORMAL) Spectrae Chemistry (03/24/2021) P athologist Signature PTH 977 (H) 16 - 80 APS SPECTRA pg/mL [facility] Specimen (Source) Anatomical Collection Method Collection Time Re ceived Time Location / / Volume Laterality 03/24/2021 03/26/2021 11:4 0 AM WATER TESTER Narrative APS SPECTRA [facility] - 03/26/2021 Unless otherwise specified, test(s) performed at: [email or web address], [address] [place] [address] INDUSTRIAL PHARMACIST: Alec Payan M.D. For any questions, please call customer service at FREQUENCY:MONTHLY Resulting Agency Comment Specimen source: Plasma Ernie Pompa MD LAB BLOOD ORDERABLES Performing Organization Address [facility] Phon e Number APS SPECTRA [facility] HD KINETICS (03/24/2021) P athologist Signature % Urea 75 65 - 80 % APS SPECTRA Reduction [facility] Specimen (Source) Anatomical Collection Method Collection Time Re ceived Time Location / / Volume Laterality 03/24/2021 03/26/2021 2:17 PM WATER TESTER Resulting Agency Comment Specimen source: Plasma Ernie Pompa MD LAB BLOOD ORDERABLES Performing Organization Address [facility] Code Phon e Number APS SPECTRA [facility] POST CHEMISTRY (03/24/2021) P athologist Signature BUN Post 16 6 - 19 APS SPECTRA Dialysis mg/dL [facility] Specimen (Source) Anatomical Collection Method Collection Time Re ceived Time Location / / Volume Laterality 03/24/2021 03/26/2021 2:15 PM WATER TESTER Narrative APS SPECTRA [facility] - 03/26/2021 Unless otherwise specified, test(s) performed at: [email or web address], [address] [place] [address] INDUSTRIAL PHARMACIST: Alec Payan M.D. For any questions, please call customer service at FREQUENCY:MONTHLY Resulting Agency Comment Specimen source: Plasma Ernie Pompa MD LAB BLOOD ORDERABLES Performing Organization Address [facility] Phon e Number APS SPECTRA [facility] (ABNORMAL) Spectrae Chemistry (03/24/2021) [facility] gist Method Time Signature BUN 63 (H) [...] Volume Laterality 03/24/2021 03/26/2021 12:2 9 PM WATER TESTER Narrative APS SPECTRA [facility] - 03/28/2021 Unless otherwise specified, test(s) performed at: [email or web address], [address] [place] [address] INDUSTRIAL PHARMACIST: Alec Payan M.D. For any questions, please call customer service at FREQUENCY:MONTHLY Resulting Agency Comment Specimen source: Serum Ernie Pompa MD LAB BLOOD ORDERABLES Performing Organization Address City/State/[facility] Code Phon e Number APS SPECTRA [...] Volume Laterality 03/24/2021 03/26/2021 11:5 3 AM WATER TESTER Narrative APS SPECTRA [facility] - 03/26/2021 Unless otherwise specified, test(s) performed at: [email or web address], [address] [place] [address] INDUSTRIAL PHARMACIST: Alec Payan M.D. For any questions, please call customer service at FREQUENCY:MONTHLY Resulting Agency Comment Specimen source: Blood Ernie Pompa MD LAB BLOOD ORDERABLES Performing Organization Address City/[facility]/ZIP [facility] Phon e Number APS SPECTRA [facility] documented in this encounter Visit Diagnoses Not on filedocumented in this encounter
--- OUTSIDE RECORDS SUMMARY | 2021-11-04 08:37 | XMS_ITS | Encounter Summary ---
:1945 Author Organization [facility] Address [address] [place] [address] Care Team Providers Name Role Phone Unavailable Primary Care Provider Unavailable Encounter Details Date Type Department Care Team Description 05/05/2021 Orders Only [facility] f Ernie Guzmán MD [phone] [place] [address] [place], [place] [phone] (Wo rk) Social History Tobacco Use [...] / Volume Laterality 05/05/2021 05/06/2021 8:46 PM SUSTAINABILITY PROJECT MANAGER Narrative APS SPECTRA [facility] - 05/07/2021 Unless otherwise specified, test(s) performed at: [facility], [address] [place] [address] MICROBIOLOGY TECHNOLOGIST: Alec Payan M.D. For any questions, please call customer service at FREQUENCY:OTHER Resulting Agency Comment Specimen source: Serum Ernie Pompa MD LAB BLOOD ORDERABLES Performing Organization Address City/[facility]/ZIP Code Phon e Number [facility] (ABNORMAL) HEMATOLOGY (05/05/2021) Analysis Performed At Patho logist Time Signature Hemoglobin 10.3 (L) 14.0 - APS SPECTRA 18.0 g/dL [facility] Hemoglobin x 3 30.9 (L) 42.0 - [facility]PS [facility]RA 54.0 % [facility] Specimen (Source) Anatomical Collection Method Collection Time Re ceived Time Location / / Volume Laterality 05/05/2021 05/06/2021 5:29 PM SUSTAINABILITY PROJECT MANAGER Narrative [facility] - 05/06/2021 Unless otherwise specified, test(s) performed at: [facility], [address] [place], [place] [id number] MICROBIOLOGY TECHNOLOGIST: Alec Payan M.D. For any questions, please call customer service at FREQUENCY:OTHER Resulting Agency Comment Specimen source: Blood Ernie Pompa MD LAB BLOOD ORDERABLES Performing Organization Address [facility] Phon e Number APS SPECTRA [facility] (ABNORMAL) Spectrae Chemistry (05/05/2021) P athologist Signature PTH 1,457 (H) 16 - 80 APS SPECTRA pg/mL [facility] Specimen (Source) Anatomical Collection Method Collection Time Re ceived Time Location / / Volume Laterality 05/05/2021 05/06/2021 5:24 PM SUSTAINABILITY PROJECT MANAGER Narrative [facility]PS S[facility]RA [facility] - 05/06/2021 Unless otherwise specified, test(s) performed at: [facility], [address] [place] [address] MICROBIOLOGY TECHNOLOGIST: Alec Payan M.D. For any questions, please call customer service at FREQUENCY:OTHER Resulting Agency Comment Specimen source: Plasma Ernie Pompa MD LAB BLOOD ORDERABLES Performing Organization Address City/[facility] Phon e Number [facility] SPECTRA [facility] documented in this encounter Visit Diagnoses Not on filedocumented in this encounter
--- OUTSIDE RECORDS SUMMARY | 2021-11-04 08:37 | XMS_ITS | Encounter Summary ---
:1945 Author Organization [facility] Address [address] [place] [address] Care Team Providers Name Role Phone Unavailable Primary Care Provider Unavailable Encounter Details Date Type Department Care Team Description 01/20/2021 Treatment [facility] O Ernie Gómez MD [address] [place] [address] [place], [place] [phone] [phone] (Wo rk) Social History Tobacco Use Types Packs/Day Years Used Date Smoking Tobacco: Unknown Comments: Smoking History Info:Patient n ot screened Sex Assigned at Date Recorded Not on file documented as of this encounter Miscellaneous Notes Dialysis Note - Ernie Pompa MD - 01/20/2021 9:46 AM CDT Date: Jan 20, 2021 Patient Name: Shaun Ocampo : 1945 Chart #: [id number] Sex: M This patient was personally seen [...] Sucrose (Venofer) 50 mg IVP 1X Week 01/11/2021 01/10/2022 Mircera 75 mcg IVP Every 2 weeks 01/13/2021 01/12/2022 Vitamin D (Calcitriol) Oral 2.0 mcg ORAL Every Treatment 12/30/2020 12/29/2021 RETAIL PHARMACY MERCHANDISER: Ernie Pompa MD LOCATION: [place] [phone] SCHEDULE: -- 2nd Shift EDW: kg. DIALYZER: HD DURATION: NEEDLE SIZE: ANTICOAG: BATH: QB: ml/min QD: ml/min Subjective Tolerating dialysis well. 01/20/21: He has no new symptoms. 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 06/10: Doing well overall, no new complaints, [...] Went to Urgent care -> ER in [place] yesterday,CT with R hydro but no obstructive [...] He had infiltration last week, dialyzed at [facility] on Sat and went well, [...] there was ulceration that is now healed. R 2nd toe on top there is small blisterwithout erythema and no open areas Medication List Medication Sig Start Date albuterol [...] prescription. Vascular Access Assessment Type of access: Eoeolly90/2019 Surgeon Annita KUMARW Access working well Anemia Assessment HEMOGLOBIN (G/DL) IN BLOOD g/dL 9.2 (01/13/21) 8.7 (01/06/21) 9.0 (12/30/20) 9.1 (12/23/20) 9.4 (12/16/20) PLATELETS 1000/mcL 168 (12/23/20) 145 (11/18/20) 180 (10/21/20) 180 (09/23/20) 147 (08/19/20) IRON SATURATION % 25 (12/23/20) 28 (11/18/20) 21 (10/21/20) 20 (09/23/20) 36 (08/19/20) FERRITIN ng/mL 837 (12/23/20) 1317 (09/23/20) 951 (06/24/20) 1040 (03/25/20) 912 (01/29/20) Hemoglobin is below goal. Iron Saturation is at goal. Ferritin is at goal. Will adjust NATALEE and intravenous iron per protocol. Hgb improving, repeat today Nutritional and Metabolic Assessment ALBUMIN (G/DL) g/dL [...] at goal. Intact PTH is at goal. Box Annealer will adjust binders and vitamin D per protocol and continue to provide dietary education. Cardiovascular Assessment Blood pressures reviewed and are acceptable. Intradialytic weight gains are too high. Estimated dry weight is appropriate. Discussed fluid restriction multiple times, improved but still high at times. Reaching EDW by end ofweek typically. Transplant Status: Patient is not a candidate. Weight, co-morbidities, age Resuscitation Status Stable dialysis No changes to prescription Monitor blister on toe closely and he will avoid any pressure on this area and assess it daily Monthly labs today Ernie Pompa MD [ Signed And locked electronically On 01/20/2021 at 09:48:18 AM ] Transcribed: Ernie Pompa ( 01/20/2021 ) documented in this encounter Plan of Treatment Not on filedocumented as of this encounter Visit Diagnoses Not on filedocumented in this encounter
--- OUTSIDE RECORDS SUMMARY | 2021-11-04 08:37 | XMS_ITS | Encounter Summary ---
:1945 Author Organization [facility] Address [address] [place] [address] Pkw[address] [place] [address] Care Team Providers Name Role Phone Unavailable Primary Care Provider Unavailable Encounter Details Date Type Department Care Team Description 05/21/2021 Orders Only [facility] O f Ernei Guzmán MD [phone] [place] [address] [place], [place] [phone] (Wo rk) Social History Tobacco Use [...] II) eKt/V 1.33 KAMERON ([place]) PCR 64.28 KAEMRON nPCR_HD 0.94 KAMERON eKt/V Gotch 1.41 KAMERON [...] / Volume Laterality 05/21/2021 05/22/2021 1:14 PM SOLVENT PROCESS EXTRACTOR OPERATOR Resulting Agency Comment Specimen source: Serum Ernie Pompa MD LAB BLOOD ORDERABLES Performing Organization Address City/State/ZIP Code Phon e Number [facility]PS SPECTRA [facility] POST CHEMISTRY (05/21/2021) athologist Signature BUN Post 12 6 - 19 APS SPECTRA Dialysis mg/dL [facility] Specimen (Source) Anatomical Collection Method Collection Time Re ceived Time Location / / Volume Laterality 05/21/2021 05/22/2021 11:5 6 AM SOLVENT PROCESS EXTRACTOR OPERATOR Narrative APS SPECTRA [facility] - 05/22/2021 Unless otherwise specified, test(s) performed at: [facility], [address] [place] [address] AXLE TURNER: Alec Payan M.D. For any questions, please [...] / Volume Laterality 05/21/2021 05/22/2021 1:14 PM SOLVENT PROCESS EXTRACTOR OPERATOR Narrative APS SPECTRA [facility] - 05/22/2021 Unless otherwise specified, test(s) performed at: [facility], [address] [place] [address] AXLE TURNER: Alec Payan M.D. For any questions, please call customer service at FREQUENCY:OTHER Resulting Agency Comment Specimen source: Serum Ernie Pompa MD LAB BLOOD ORDERABLES Performing Organization Address City/State/ZIP Code Phon e Number [facility]PS SPECTRA [facility] documented in this encounter Visit Diagnoses Not on filedocumented in this encounter
--- OUTSIDE RECORDS SUMMARY | 2021-11-04 08:37 | XMS_ITS | Encounter Summary ---
:1945 Author Organization [facility] Address [address] [place] [address] Care Team Providers Name Role Phone Unavailable Primary Care Provider Unavailable Encounter Details Date Type Department Care Team Description 02/17/2021 Orders Only [facility] O f Ernie Guzmán MD [address] [place] [address] [place], [place] [phone] (Wo rk) Social History Tobacco Use [...] / Volume Laterality 02/17/2021 02/18/2021 4:14 PM WHARF WORKER Resulting Agency Comment Specimen source: Serum Ernie Pompa MD LAB BLOOD ORDERABLES Performing Organization Address City/[facility]/ZIP Code Phon e Number APS SPECTRA [facility] POST CHEMISTRY (02/17/2021) P athologist Signature BUN Post 13 6 - 19 APS SPECTRA Dialysis mg/dL [facility] Specimen (Source) Anatomical Collection Method Collection Time Re ceived Time Location / / Volume Laterality 02/17/2021 02/18/2021 4:00 PM WHARF WORKER Narrative APS SPECTRA [facility] - 02/19/2021 Unless otherwise specified, test(s) performed at: [facility], [address] [place] [address] SEAL DELIVERY VEHICLE TEAM TECHNICIAN: Alec Payan M.D. For any questions, please call customer service at FREQUENCY:MONTHLY Resulting Agency Comment Specimen source: Plasma Ernie Pompa MD LAB BLOOD ORDERABLES Performing Organization Address City/[facility] Code Phon e Number [facility]PS SPECTRA [facility] IMMUNO CHEMISTRY (02/17/2021) P athologist Signature Hep B Surface Negative Negative APS SPECTRA Ag [facility] Specimen (Source) Anatomical Collection Method Collection Time Re ceived Time Location / / Volume Laterality 02/17/2021 02/18/2021 4:08 PM WHARF WORKER Narrative APS SPECTRA [facility] - 02/18/2021 Unless otherwise specified, test(s) performed at: [facility], [address] [place] [address] SEAL DELIVERY VEHICLE TEAM TECHNICIAN: Alec Pyaan M.D. For any questions, please call customer service at FREQUENCY:MONTHLY Resulting Agency Comment Specimen source: Serum Ernie Pompa MD LAB BLOOD ORDERABLES Performing Organization Address City/State/ZIP Code Phon e Number APS SPECTRA [facility] (ABNORMAL) Spectrae Chemistry (02/17/2021) [facility] Method Time Signature BUN 46 (H) [...] / Volume Laterality 02/17/2021 02/18/2021 4:08 PM WHARF WORKER Narrative APS SPECTRA [facility] - 02/18/2021 Unless otherwise specified, test(s) performed at: [facility], [address] [place] [address] SEAL DELIVERY VEHICLE TEAM TECHNICIAN: Alec Payan M.D. For any questions, please call customer service at FREQUENCY:MONTHLY Resulting Agency Comment Specimen source: Serum Enrie Pompa MD LAB BLOOD ORDERABLES Performing Organization Address City/[facility] Code Phon e Number APS SPECTRA [...] / Volume Laterality 02/17/2021 02/18/2021 9:53 AM WHARF WORKER Narrative APS SPECTRA [facility] - 02/18/2021 Unless otherwise specified, test(s) performed at: [facility], [address] [place] [address] SEAL DELIVERY VEHICLE TEAM TECHNICIAN: Alec Payan M.D. For any questions, please call customer service at FREQUENCY:MONTHLY Resulting Agency Comment Specimen source: Blood Ernie Pompa MD LAB BLOOD ORDERABLES Performing Organization Address City/[facility]/ZIP [facility] Phon e Number APS SPECTRA [facility] (ABNORMAL) Spectrae Chemistry (02/17/2021) P athologist Signature PTH 546 (H) 16 - 80 APS SPECTRA pg/mL [facility] Specimen (Source) Anatomical Collection Method Collection Time Re ceived Time Location / / Volume Laterality 02/17/2021 02/18/2021 10:3 2 AM WHARF WORKER Narrative APS SPECTRA [facility] - 02/18/2021 Unless otherwise specified, test(s) performed at: [facility], [address] [place] [address] SEAL DELIVERY VEHICLE TEAM TECHNICIAN: Alec Payan M.D. For any questions, please call customer service at FREQUENCY:MONTHLY Resulting Agency Comment Specimen source: Plasma Ernie Pompa MD LAB BLOOD ORDERABLES Performing Organization Address City/State/ZIP Code Phon e Number [facility]PS SPECTRA [facility] documented in this encounter Visit Diagnoses Not on filedocumented in this encounter
--- OUTSIDE RECORDS SUMMARY | 2021-11-04 08:37 | XMS_ITS | Encounter Summary ---
:1945 Author Organization [facility] Address [address] [place] [address] Care Team Providers Name Role Phone Unavailable Primary Care Provider Unavailable Encounter Details Date Type Department Care Team Description 05/12/2021 Orders Only [facility] O f Ernie Guzmán MD [address] [place] [address] [place], [place] [phone] (Wo rk) Social History Tobacco Use [...] / Volume Laterality 05/12/2021 05/13/2021 1:22 PM SOLVENT RECOVERER Narrative APS SPECTRA [facility] - 05/13/2021 Unless otherwise specified, test(s) performed at: [facility], [address] [place] [address] MOVIE WRITER: Alec Payan M.D. For any questions, please call customer service at FREQUENCY:OTHER Resulting Agency Comment Specimen source: Blood Ernie Pompa MD LAB BLOOD ORDERABLES Performing Organization Address City/State/ZIP Code Phon e Number APS SPECTRA [facility] documented in this encounter Visit Diagnoses Not on filedocumented in this encounter
--- OUTSIDE RECORDS SUMMARY | 2021-11-04 08:37 | XMS_ITS | Encounter Summary ---
:1945 Author Organization [facility] Address [address] [place] [address] Care Team Providers Name Role Phone Unavailable Primary Care Provider Unavailable Encounter Details Date Type Department Care Team Description 03/10/2021 Treatment [facility] O Ernie Gómez MD [address] [place] [address] [place], [place] [phone] (Wo rk) Social History Tobacco Use Types Packs/Day Years Used Date Smoking Tobacco: Unknown Comments: Smoking History Info:Patient n ot screened Sex Assigned at Date Recorded Not on file documented as of this encounter Miscellaneous Notes Dialysis Note - Ernie Pompa MD - 03/10/2021 9:40 AM CST Date: Mar 10, 2021 Patient Name: Shaun Ocampo : 1945 Chart #: [id number] Sex: M This patient was personally seen [...] AM ) BP (sit): 116/55 AP(-) / INSURANCE AGENCY OWNER: 171/146 Pulse: 70 Chairside data as of [...] 0.25 mcg ORAL Every Treatment 03/08/2021 03/07/2022 AUTOCAD TECHNICIAN: Ernie Pompa MD LOCATION: [phone] SCHEDULE: -W-F 2nd Shift ACCESS: EDW: kg. DIALYZER: HD DURATION: NEEDLE SIZE: ANTICOAG: BATH: QB: ml/min QD: ml/min Subjective Tolerating dialysis well. 03/10/21: He has been marching in place and increasing duration to try and gain endurance, feels this is helping. Fluid gains continue to be high, no chance of reaching EDW this week without an extra run and we discussed going to [place] tomorrow for UF only run and he [...] again today, may need extra run at [place] if can't get down over next week. 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 06/10: Doing well overall, no new complaints, [...] Went to Urgent care -> ER in [place] yesterday,CT with R hydro but no obstructive [...] He had infiltration last week, dialyzed at [facility] on Sat and went well, [...] (12/23/20) Vascular Access Assessment: Type of access: [id number]/[email or web address] Surgeon - Lary GARDNER Access working well [...]
--- OUTSIDE RECORDS SUMMARY | 2021-11-04 08:37 | XMS_ITS | Encounter Summary ---
:1945 Author Organization [facility] Address [address] [place] [address] Care Team Providers Name Role Phone Unavailable Primary Care Provider Unavailable Encounter Details Date Type Department Care Team Description 12/30/2020 Orders Only [facility] O f Ernie Guzmán MD [address] [place] [address] [place], [place] [phone] (Wo rk) Social History Tobacco Use [...] 12/31/2020 Unless otherwise specified, test(s) performed at: [facility], [address] [place] [address] HOSPICE/HOME HEALTH AIDE: Alec Payan M.D. For any questions, please call customer service at FREQUENCY:OTHER Resulting Agency Comment Specimen source: Blood Ernie Pompa MD LAB BLOOD ORDERABLES Performing Organization Address City/State/ZIP Code Phon e Number [facility]PS SPECTRA [facility] documented in this encounter Visit Diagnoses Not on filedocumented in this encounter
--- OUTSIDE RECORDS SUMMARY | 2021-11-04 08:37 | XMS_ITS | Encounter Summary ---
:1945 Author Organization [facility] Address [address] [place] [address] Care Team Providers Name Role Phone Unavailable Primary Care Provider Unavailable Encounter Details Date Type Department Care Team Description 01/27/2021 Orders Only [facility] O f Ernie Guzmán MD [address] [place] [address] [place], [place] [phone] (Wo rk) Social History Tobacco Use [...] Volume Laterality 01/27/2021 01/28/2021 10:1 8 PM ENTRY LEVEL PARALEGAL Narrative APS SPECTRA [facility] - 01/29/2021 Unless otherwise specified, test(s) performed at: [facility], [address] [place] [address] RETAIL DEPARTMENT MANAGER: Alec Payan M.D. For any questions, [...] Volume Laterality 01/27/2021 01/28/2021 10:4 1 PM ENTRY LEVEL PARALEGAL Narrative APS SPECTRA [facility] - 01/29/2021 Unless otherwise specified, test(s) performed at: [facility], [address] [place] [address] RETAIL DEPARTMENT MANAGER: Alec Payan M.D. For any questions, please call customer service at FREQUENCY:OTHER Resulting Agency Comment Specimen source: Serum Ernie Pompa MD LAB BLOOD ORDERABLES Performing Organization Address City/State/ZIP Code Phon e Number APS SPECTRA [facility] documented in this encounter Visit Diagnoses Not on filedocumented in this encounter
--- OUTSIDE RECORDS SUMMARY | 2021-11-04 08:37 | XMS_ITS | Encounter Summary ---
:1945 Author Organization [facility] Address [address] [place] [address] Care Team Providers Name Role Phone Unavailable Primary Care Provider Unavailable Encounter Details Date Type Department Care Team Description 04/14/2021 Orders Only [facility] O f Ernie Guzmán MD [address] [place] [address] [place], [place] [phone] (Wo rk) Social History Tobacco Use [...] Volume Laterality 04/14/2021 04/15/2021 10:0 0 AM SITE OPERATIONS MANAGER Narrative APS SPECTRA [facility] - 04/15/2021 Unless otherwise specified, test(s) performed at: [facility], [address] [place] [address] BENDING MACHINE OPERATOR: Alec Payan M.D. For any questions, please call customer service at FREQUENCY:OTHER Resulting Agency Comment Specimen source: Blood Ernie Pompa MD LAB BLOOD ORDERABLES Performing Organization Address City/State/ZIP Code Phon e Number APS SPECTRA [facility] documented in this encounter Visit Diagnoses Not on filedocumented in this encounter
--- OUTSIDE RECORDS SUMMARY | 2021-11-04 08:37 | XMS_ITS | Encounter Summary ---
:1945 Author Organization [facility] Address [address] [place] [address] Care Team Providers Name Role Phone Unavailable Primary Care Provider Unavailable Encounter Details Date Type Department Care Team Description 04/21/2021 Treatment [facility] f Ernie Guzmán MD [address] [place] [address] [place], [place] [phone] [phone] (Wo rk) Social History Tobacco Use Types Packs/Day Years Used Date Smoking Tobacco: Unknown Comments: Smoking History Info:Patient n ot screened Sex Assigned at Date Recorded Not on file documented as of this encounter Miscellaneous Notes Dialysis Note - Ernie Pompa MD - 04/21/2021 8:58 AM CST Date: Apr 21, 2021 Patient Name: Shaun Ocampo : 1945 Chart #: [id number] Sex: M This patient was personally seen [...] AM ) BP (sit): 113/62 AP(-) / LINEMARKER: 176/155 Pulse: 78 Chairside data as of [...] 50 mg IVP 1X Week 04/12/2021 04/11/2022 DIE MOUNTER: Ernie Pompa MD LOCATION: [phone] SCHEDULE: M-W-F 2nd Shift EDW: kg. DIALYZER: [...] extra run and we discussed going to [place] tomorrow for UF only run and he [...] again today, may need extra run at [place] if can't get down over next week. 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 06/10: Doing well overall, no new complaints, [...] Went to Urgent care -> ER in [place] yesterday,CT with R hydro but no obstructive [...] He had infiltration last week, dialyzed at [facility] on Sat and went well, [...] prescription. Vascular Access Assessment Type of access: [id number] Surgeon - Lary GARDNER Access working well [...] at goal. Intact PTH is above goal. Spinning Room Worker will adjust binders and vitamin D [...] On 04/21/2021 at 09:01:21 AM ] Transcribed: Ernie Pompa ( 04/21/2021 ) documented in this encounter Plan of Treatment Not on filedocumented as of this encounter Visit Diagnoses Not on filedocumented in this encounter
--- OUTSIDE RECORDS SUMMARY | 2021-11-04 08:37 | XMS_ITS | Encounter Summary ---
:1945 Author Organization [facility] Address [address] [place] [address] Care Team Providers Name Role Phone Unavailable Primary Care Provider Unavailable Encounter Details Date Type Department Care Team Description 04/28/2021 Orders Only [facility] O f Ernie Guzmán MD [address] [place] [address] [place], [place] [phone] (Wo rk) Social History Tobacco Use [...] Volume Laterality 04/28/2021 04/29/2021 12:1 6 PM ENTERPRISE APPLICATION DEVELOPER Narrative APS SPECTRA [facility] - 04/29/2021 Unless otherwise specified, test(s) performed at: [facility], [address] [place] [address] YEAST WASHER: Alec Payan M.D. For any questions, please call customer service at FREQUENCY:OTHER Resulting Agency Comment Specimen source: Blood Ernie Pompa MD LAB BLOOD ORDERABLES Performing Organization Address City/State/ZIP Code Phon e Number APS SPECTRA [facility] documented in this encounter Visit Diagnoses Not on filedocumented in this encounter
--- OUTSIDE RECORDS SUMMARY | 2021-11-04 08:37 | XMS_ITS | Encounter Summary ---
:1945 Author Organization [facility] Address [address] [place] [address] Care Team Providers Name Role Phone Unavailable Primary Care Provider Unavailable Encounter Details Date Type Department Care Team Description 01/13/2021 Treatment [facility] O Ernie Gómez MD [address] [place] [address] [place], [place] [phone] [phone] (Wo rk) Social History Tobacco Use Types Packs/Day Years Used Date Smoking Tobacco: Unknown Comments: Smoking History Info:Patient n ot screened Sex Assigned at Date Recorded Not on file documented as of this encounter Miscellaneous Notes Dialysis Note - Ernie Pompa MD - 01/13/2021 11:13 AM CDT Date: Jan 13, 2021 Patient Name: Shaun Ocampo : 1945 Chart #: [id number] Sex: M This patient was personally seen for a basic visit as part of routine weekly dialysis care. A reviewof the dialysis treatment, blood pressure, estimated dry weight and recent lab values was made. These were discussed with the patient and staff as necessary. Treatment Data for 01/13/2021 started at:9:06 AM Dialyzer: 180NRe Optiflux Na: 138 mEq/L Bicarb: 32 mEq/L Dialysate: 2.0 K, 2.25 Ca, 1.0 Mg, 100 Dextrose (G2231) Dialysate/Machine Temp (prescribed): 37 C Dialysate/Machine Temp (actual): 36.5 C BFR (prescribed): 450 BFR (actual): n/a Prescribed time: 04:00 EDW: 109 kg Access Type: Active (In Use):AVFistula-Standard/Left Upper Arm Pre Dialysis Vitals (for 01/13/2021 8:55 AM ) Pre BP (sit): 165/66 Pre Wt: 114 kg Temp: 96.7 F Post Dialysis Vitals (for 01/11/2021 1:04 PM ) Post BP (sit): 138/66 Post Wt: 110.9 kg Current Dialysis Vitals (for 01/13/2021 10:03 AM ) BP (sit): 122/55 AP(-) / ROAD CROSSING GUARD: n/a Pulse: 70 Chairside data as of 01/13/2021 10:03 AM Last 3 Treatments 01/11/2021 01/08/2021 01/06/2021 EDW (kg) 109 109 109 Weight Pre (kg) 115 114.5 114.5 Weight Post (kg) 110.9 110.3 110.7 Dialytic Weight Loss (kg) -4.1 -4.2 -3.8 EDW Deviation (kg) 1.9 1.3 1.7 BP Sit Pre 162/65 119/58 131/58 BP Sit Post 138/66 132/58 124/63 UF Rate (mL/kg/hr) 9 10 9 Prescribed BFR 450 450 450 Average Delivered BFR 440 490 450 Prescribed Treatment Time 04:00 04:00 04:00 Actual Treatment Time 04:04 04:03 04:03 Last 3 Values 01/01/2021 11/20/2020 11/06/2020 Access Flow > 2000 1432 > 2000 Treatment Medication Orders Medication Sig [...] 2.0 mcg ORAL Every Treatment 12/30/2020 12/29/2021 RENAL SOCIAL WORKER: Ernie Pompa MD LOCATION: [facility] [phone] SCHEDULE: -- 2nd Shift ACCESS: EDW: kg. DIALYZER: HD DURATION: NEEDLE SIZE: ANTICOAG: BATH: QB: ml/min QD: ml/min Subjective Tolerating dialysis well. 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 06/10: Doing well overall, no new complaints, [...] Went to Urgent care -> ER in [place] yesterday,CT with R hydro but no obstructive [...] Regular rhythm. Edema - 1+ leg edema. \ Access - AVF intact with needles in [...] no changes were made. BUN mg/dL 44 (12/23/20) 51 (11/18/20) 45 [...] (11/18/20) 1.6800 (10/21/20) 1.7900 (09/30/20) 1.7800 (08/19/20) HEMOGLOBIN (G/DL) IN BLOOD g/dL 8.7 (01/06/21) 9.0 (12/30/20) 9.1 (12/23/20) 9.4 (12/16/20) 9.5 (12/09/20) PLATELETS 1000/mcL 168 (12/23/20) 145 (11/18/20) 180 (10/21/20) 180 (09/23/20) 147 (08/19/20) IRON SATURATION % 25 (12/23/20) 28 (11/18/20) 21 (10/21/20) 20 (09/23/20) 36 (08/19/20) FERRITIN ng/mL 837 (12/23/20) 1317 (09/23/20) 951 (06/24/20) 1040 (03/25/20) 912 (01/29/20) ALBUMIN (G/DL) g/dL 3.5 (12/23/20) 3.6 (11/18/20) 3.9 (10/21/20) Sodium mEq/L 136 (12/23/20) 137 (11/18/20) 135 (10/21/20) POTASSIUM (MMOL/L) IN SER/PLAS mEq/L 4.6 (12/23/20) 5.3 (11/18/20) 5.8 (10/21/20) BICARBONATE (CO2) mEq/L 21 (12/23/20) 24 (11/18/20) 23 (10/21/20) 25 OH VITAMIN D ng/mL 37.9 (09/23/20) 37.9 (03/25/20) 62.4 (09/18/19) BUN/CREATININE (MASS RATIO) IN SER/PLAS 6.7 (12/23/20) 7.2 (11/18/20) 6.5 (10/21/20) Calcium mg/dL 9.4 (12/23/20) 9.0 (11/18/20) 9.3 (10/21/20) Calcium Phos Product 38 (12/23/20) 53 (11/18/20) 54 (10/21/20) CALCIUM (MG/DL) CORRECTED FOR ALBUMIN IN SER/PLAS mg/dL 9.8 (12/23/20) 9.3 (11/18/20) 9.4 (10/21/20) PHOSPHATE (MG/DL) IN SER/PLAS mg/dL 4.0 (12/23/20) 5.9 (11/18/20) 5.8 (10/21/20) IPTH pg/mL 493 (12/23/20) 969 (11/18/20) 785 (10/21/20) Vascular Access Assessment: Type of access: [id number] Surgeon - Lary GARDNER Access working well Impression and Plan Continue HD without change in prescription Ernie Pompa MD [ Signed And locked electronically On 01/13/2021 at 11:14:28 AM ] Transcribed: Ernie Pompa ( 01/13/2021 ) documented in this encounter Plan of Treatment Not on filedocumented as of this encounter Visit Diagnoses Not on filedocumented in this encounter
--- OUTSIDE RECORDS SUMMARY | 2021-11-04 08:37 | XMS_ITS | Encounter Summary ---
:1945 Author Organization [facility] Address [address] [place] [address] Care Team Providers Name Role Phone Unavailable Primary Care Provider Unavailable Encounter Details Date Type Department Care Team Description 03/24/2021 Treatment [facility] f Ernie Guzmán MD [address] [place] [address] [place], [place] [phone] (Wo rk) Social History Tobacco Use Types Packs/Day Years Used Date Smoking Tobacco: Unknown Comments: Smoking History Info:Patient n ot screened Sex Assigned at Date Recorded Not on file documented as of this encounter Miscellaneous Notes Dialysis Note - Ernie Pompa MD - 03/24/2021 9:04 AM CST Date: Mar 24, 2021 Patient Name: Shaun Ocampo : 1945 Chart #: [id number] Sex: M This patient was personally seen [...] AM ) BP (sit): 114/54 AP(-) / MICROBIOLOGICAL LABORATORY TECHNICIAN: 170/152 Pulse: 69 Chairside data as of [...] 0.25 mcg ORAL Every Treatment 03/08/2021 03/07/2022 GREEN END WORKER: Ernie Pompa MD LOCATION: [phone] SCHEDULE: M-W-F 2nd Shift EDW: kg. DIALYZER: [...] extra run and we discussed going to [place] tomorrow for UF only run and he [...] again today, may need extra run at [place] if can't get down over next week. 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 06/10: Doing well overall, no new complaints, [...] Went to Urgent care -> ER in [place] yesterday,CT with R hydro but no obstructive [...] He had infiltration last week, dialyzed at [facility] on Sat and went well, access ok [...] prescription. Vascular Access Assessment Type of access: [id number]/2019 Surgeon Annita GARDNER Access working well Anemia [...] above goal. Intact PTH is at goal. Windmill Technician will adjust binders and vitamin D per [...]
--- OUTSIDE RECORDS SUMMARY | 2021-11-04 08:37 | XMS_ITS | Encounter Summary ---
:1945 Author Organization [facility] Address [address] [place] [address] Care Team Providers Name Role Phone Unavailable Primary Care Provider Unavailable Encounter Details Date Type Department Care Team Description 03/10/2021 Orders Only [facility] O f Ernie Guzmán MD [address] [place] [address] [place], [place] [phone] (Wo rk) Social History Tobacco Use [...] Volume Laterality 03/10/2021 03/11/2021 10:5 0 AM CATERING DIRECTOR Narrative [facility] - 03/11/2021 Unless otherwise specified, test(s) performed at: [facility], [address] [place] [address] SUPERVISOR PRINT LINE: Alec Payan M.D. For any questions, please call customer service at FREQUENCY:OTHER Resulting Agency Comment Specimen source: Blood Ernie Pompa MD LAB BLOOD ORDERABLES Performing Organization Address City/State/ZIP Code Phon e Number [facility] documented in this encounter Visit Diagnoses Not on filedocumented in this encounter
--- OUTSIDE RECORDS SUMMARY | 2021-11-04 08:37 | XMS_ITS | Encounter Summary ---
:1945 Author Organization [facility] Address [address] [place] [address] Care Team Providers Name Role Phone Unavailable Primary Care Provider Unavailable Encounter Details Date Type Department Care Team Description 01/20/2021 Orders Only [facility] O f Ernie Guzmán MD [address] [place] [address] [place], [place] [phone] (Wo rk) Social History Tobacco Use [...] 01/22/2021 Unless otherwise specified, test(s) performed at: [facility], [address] [place] [address] HOSPICE FELLOW: Alec Payan M.D. For any questions, please [...] 01/22/2021 Unless otherwise specified, test(s) performed at: [facility], [address] [place] [address] HOSPICE FELLOW: Alec Payan M.D. For any questions, please call customer service at FREQUENCY:MONTHLY Resulting Agency Comment Specimen source: Serum Ernie Pompa MD LAB BLOOD ORDERABLES Performing Organization Address City/[facility] Phon e Number [facility] IMMUNO CHEMISTRY (01/20/2021) P athologist Signature Hep B Surface Negative Negative [facility] Ag [facility] Specimen (Source) Anatomical Collection Method Collection Time Re ceived Time Location / / Volume Laterality 01/20/2021 01/21/2021 8:41 PM CDT Narrative [facility] - 01/21/2021 Unless otherwise specified, test(s) performed at: [facility], [address] [place] [address] HOSPICE FELLOW: Alec Payan M.D. For any questions, please call customer service at FREQUENCY:MONTHLY Resulting Agency Comment Specimen source: Serum Ernie Pompa MD LAB BLOOD ORDERABLES Performing Organization Address City/[facility] Phon e Number [facility] POST CHEMISTRY (01/20/2021) P athologist Signature BUN Post 11 6 - 19 [facility] Dialysis mg/dL [facility] Specimen (Source) Anatomical Collection Method Collection Time Re ceived Time Location / / Volume Laterality 01/20/2021 01/21/2021 10:5 1 AM CDT Narrative [facility] - 01/21/2021 Unless otherwise specified, test(s) performed at: [facility], [address] [place] [address] HOSPICE FELLOW: Alec Payan M.D. For any questions, please [...] 01/21/2021 Unless otherwise specified, test(s) performed at: [facility], [address] [place] [address] HOSPICE FELLOW: Alec Payan M.D. For any questions, please [...] 01/21/2021 Unless otherwise specified, test(s) performed at: [facility], [address] [place] [address] HOSPICE FELLOW: Alec Payan M.D. For any questions, please call customer service at FREQUENCY:MONTHLY Resulting Agency Comment Specimen source: Plasma Ernie Pompa MD LAB BLOOD ORDERABLES Performing Organization Address City/State/ZIP Code Phon e Number [facility] documented in this encounter Visit Diagnoses Not on filedocumented in this encounter
--- OUTSIDE RECORDS SUMMARY | 2021-11-04 08:37 | XMS_ITS | Encounter Summary ---
:1945 Author Organization [facility] Address [address] [place] [address] Care Team Providers Name Role Phone Unavailable Primary Care Provider Unavailable Encounter Details Date Type Department Care Team Description 04/14/2021 Treatment [facility] f Ernie Guzmán MD [address] [place] [address] [place], [place] [phone] [phone] (Wo rk) Social History Tobacco Use Types Packs/Day Years Used Date Smoking Tobacco: Unknown Comments: Smoking History Info:Patient n ot screened Sex Assigned at Date Recorded Not on file documented as of this encounter Miscellaneous Notes Dialysis Note - Ernie Pompa MD - 04/14/2021 10:26 AM CST Date: Apr 14, 2021 Patient Name: Shaun Ocampo : 1945 Chart #: [id number] Sex: M This patient was personally seen for a basic visit as part of routine weekly dialysis care. A reviewof the dialysis treatment, blood pressure, estimated dry weight and recent lab values was made. These were discussed with the patient and staff as necessary. Treatment Data for 04/14/2021 started at:7:51 AM Dialyzer: 180NRe Optiflux Na: 138 mEq/L Bicarb: 30 mEq/L Dialysate: 2.0 K, 2.25 Ca, 1.0 Mg, 100 Dextrose (G2231) Dialysate/Machine Temp (prescribed): 37 C Dialysate/Machine Temp (actual): 36.9 C BFR (prescribed): 400 BFR (actual): 400 Prescribed time: 04:00 EDW: 109 kg Access Type: Active (In Use):AVFistula-Standard/Left Upper Arm Pre Dialysis Vitals (for 04/14/2021 7:45 AM ) Pre BP (sit): 116/60 Pre Wt: 112.4 kg Temp: 98.4 F Post Dialysis Vitals (for 04/12/2021 12:07 PM ) Post BP (sit): 103/45 Post Wt: 109.6 kg Current Dialysis Vitals (for 04/14/2021 10:01 AM ) BP (sit): 110/48 AP(-) / [facility] MAGISTRATE: 166/145 Pulse: 77 Chairside data as of 04/14/2021 10:01 AM Last 3 Treatments 04/12/2021 04/09/2021 04/07/2021 EDW (kg) 109 109 109 Weight Pre (kg) 113.7 112.9 113.5 Weight Post (kg) 109.6 109.4 109.5 Dialytic Weight Loss (kg) -4.1 -3.5 -4 EDW Deviation (kg) 0.6 0.4 0.5 BP Sit Pre 123/51 127/59 137/62 BP Sit Post 103/45 106/41 126/58 UF Rate (mL/kg/hr) 9 8 9 Prescribed BFR 400 400 400 Average Delivered BFR 410 410 410 Prescribed Treatment Time 04:00 04:00 04:00 Actual Treatment Time 04:00 04:00 04:00 Last 3 Values 04/02/2021 02/05/2021 01/01/2021 Access [...] mg IVP 1X Week 04/12/2021 04/11/2022 Mircera 100 mcg IVP Every 2 weeks 04/07/2021 04/06/2022 ENGRAVER LETTER: Ernie Pompa MD LOCATION: [phone] SCHEDULE: M-W- 2nd Shift ACCESS: EDW: kg. DIALYZER: HD DURATION: NEEDLE SIZE: ANTICOAG: BATH: QB: ml/min QD: ml/min Subjective Tolerating dialysis well. 04/14/21: Tolerating parsabiv, Ca under 10 now, [...] extra run and we discussed going to [place] tomorrow for UF only run and he [...] again today, may need extra run at [place] if can't get down over next week. 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 06/10: Doing well overall, no new complaints, [...] Went to Urgent care -> ER in [place] yesterday,CT with R hydro but no obstructive [...] had infiltration last week, dialyzed at [facility] on Sat and went well, access ok [...] and no changes were made. BUN mg/dL 63 (03/24/21) 46 (02/17/21) 51 [...] (02/17/21) 1.8000 (01/20/21) 1.6600 (12/23/20) 1.8400 (11/18/20) HEMOGLOBIN (G/DL) IN BLOOD g/dL 10.8 (04/07/21) 11.0 (03/31/21) 11.3 (03/24/21) 11.4 (03/17/21) 10.8 (03/10/21) PLATELETS 1000/mcL 135 (03/24/21) 190 (02/17/21) 186 (01/20/21) 168 (12/23/20) 145 (11/18/20) IRON SATURATION % 28 (03/24/21) 20 (02/17/21) 24 (01/20/21) 25 (12/23/20) 28 (11/18/20) FERRITIN ng/mL 857 (03/24/21) 837 (02/24/21) 925 (01/27/21) 837 (12/23/20) 1317 (09/23/20) ALBUMIN (G/DL) g/dL 3.9 (03/24/21) 3.7 (02/17/21) 3.8 (01/20/21) Sodium mEq/L 135 (03/24/21) 136 (02/17/21) 136 (01/20/21) POTASSIUM (MMOL/L) IN SER/PLAS mEq/L 5.7 (03/24/21) 4.8 (02/17/21) 5.5 (01/20/21) BICARBONATE (CO2) mEq/L 23 (03/24/21) 26 (02/17/21) 22 (01/20/21) 25 OH VITAMIN D ng/mL 38.3 (03/24/21) 37.9 (09/23/20) 37.9 (03/25/20) BUN/CREATININE (MASS RATIO) IN SER/PLAS 8.4 (03/24/21) 6.5 (02/17/21) 7.6 (01/20/21) Calcium mg/dL 9.7 (03/31/21) 10.6 (03/24/21) 10.7 (03/03/21) Calcium Phos Product 58 (03/24/21) 58 (02/17/21) 53 (01/20/21) CALCIUM (MG/DL) CORRECTED FOR ALBUMIN IN SER/PLAS mg/dL 10.7 (03/24/21) 10.6 (02/17/21) 10.1 (01/20/21) PHOSPHATE (MG/DL) IN SER/PLAS mg/dL 5.5 (03/24/21) 5.6 (02/17/21) 5.4 (01/20/21) IPTH pg/mL 1309 (03/31/21) 977 (03/24/21) 546 (02/17/21) Vascular Access Assessment: Type of access: [id number] Surgeon - Lary GARDNER Access working well Impression and Plan Stable dialysis overall, no changes to prescription made Parsabiv started, tolerating so far, Ca improved Ernie Pompa MD [ Signed And locked electronically On 04/14/2021 at 10:27:04 AM ] Transcribed: Ernie Pompa ( 04/14/2021 ) documented in this encounter Plan of Treatment Not on filedocumented as of this encounter Visit Diagnoses Not on filedocumented in this encounter
--- OUTSIDE RECORDS SUMMARY | 2021-11-04 08:37 | XMS_ITS | Encounter Summary ---
:1945 Author Organization [facility] Address [address] [place] [address] Care Team Providers Name Role Phone Unavailable Primary Care Provider Unavailable Encounter Details Date Type Department Care Team Description 02/24/2021 Orders Only [facility] O f Ernie Guzmán MD [address] [place] [address] [place], [place] [phone] (Wo rk) Social History Tobacco Use [...] / Volume Laterality 02/24/2021 02/25/2021 6:54 PM ACUPRESSURIST Narrative [facility] - 02/26/2021 Unless otherwise specified, test(s) performed at: [facility], [address] [place] [address] ORTHOPEDIC TECHNICIAN: Alec Payan M.D. For any questions, please call customer service at FREQUENCY:OTHER Resulting Agency Comment Specimen source: Serum Ernie Pompa MD LAB BLOOD ORDERABLES Performing Organization Address City/[facility]/ZIP Code Phon e Number [facility] (ABNORMAL) HEMATOLOGY (02/24/2021) Analysis Performed At Patho logist Time Signature Hemoglobin 10.2 (L) 14.0 - [facility] 18.0 g/dL [facility] Hemoglobin x 3 30.6 (L) 42.0 - [facility] 54.0 % [facility] Specimen (Source) Anatomical Collection Method Collection Time Re ceived Time Location / / Volume Laterality 02/24/2021 02/25/2021 10:2 3 AM ACUPRESSURIST Narrative [facility] - 02/25/2021 Unless otherwise specified, test(s) performed at: [facility], [address] [place] [address] ORTHOPEDIC TECHNICIAN: Alec Payan M.D. For any questions, please call customer service at FREQUENCY:OTHER Resulting Agency Comment Specimen source: Blood Ernie Pompa MD LAB BLOOD ORDERABLES Performing Organization Address City[facility] Phon e Number [facility] documented in this encounter Visit Diagnoses Not on filedocumented in this encounter
--- OUTSIDE RECORDS SUMMARY | 2021-11-04 08:37 | XMS_ITS | Encounter Summary ---
:1945 Author Organization [facility] Address [address] [place] [address] Care Team Providers Name Role Phone Unavailable Primary Care Provider Unavailable Encounter Details Date Type Department Care Team Description 03/17/2021 Orders Only [facility] O f Ernie Guzmán MD [address] [place] [address] [place], [place] [phone] (Wo rk) Social History Tobacco Use Types Packs/Day Years Used Date Smoking Tobacco: Unknown Comments: Smoking History Info:Patient n ot screened Sex Assigned at Date Recorded Not on file documented as of this encounter Plan of Treatment Not on filedocumented as of this encounter Procedures Procedure Name Priority Date/Time Associated Diagnosis Comme nts HEMATOLOGY Routine 03/17/2021 Results for thi s procedure are in the resu lts section. documented in this encounter Results (ABNORMAL) HEMATOLOGY (03/17/2021) Analysis Performed At Patho logist Time Signature Hemoglobin 11.4 (L) 14.0 - [facility] 18.0 g/dL [facility] Hemoglobin x 3 34.2 (L) 42.0 - [facility] 54.0 % [facility] Specimen (Source) Anatomical Collection Method Collection Time Re ceived Time Location / / Volume Laterality 03/17/2021 03/18/2021 9:32 AM PRECISION JIG GRINDER Narrative [facility] - 03/18/2021 Unless otherwise specified, test(s) performed at: [facility], [address] [place] [address] CROSS CUT SAW OPERATOR: Alec Payan M.D. For any questions, please call customer service at FREQUENCY:OTHER Resulting Agency Comment Specimen source: Blood Ernie Pompa MD LAB BLOOD ORDERABLES Performing Organization Address City/State/ZIP Code Phon e Number [facility] documented in this encounter Visit Diagnoses Not on filedocumented in this encounter
--- OUTSIDE RECORDS SUMMARY | 2021-11-04 08:37 | XMS_ITS | Encounter Summary ---
:1945 Author Organization [facility] Address [address] [place] [address] Care Team Providers Name Role Phone Unavailable Primary Care Provider Unavailable Encounter Details Date Type Department Care Team Description 02/10/2021 Orders Only [facility] O f Ernie Guzmán MD [address] [place] [address] [place], [place] [phone] (Wo rk) Social History Tobacco Use Types Packs/Day Years Used Date Smoking Tobacco: Unknown Comments: Smoking History Info:Patient n ot screened Sex Assigned at Date Recorded Not on file documented as of this encounter Plan of Treatment Not on filedocumented as of this encounter Procedures Procedure Name Priority Date/Time Associated Diagnosis Comme nts HEMATOLOGY Routine 02/10/2021 Results for thi s procedure are in the resu lts section. documented in this encounter Results (ABNORMAL) HEMATOLOGY (02/10/2021) Analysis Performed At Patho logist Time Signature Hemoglobin 9.8 (L) 14.0 - [facility] 18.0 g/dL [facility] Hemoglobin x 3 29.4 (L) 42.0 - [facility] 54.0 % [facility] Specimen (Source) Anatomical Collection Method Collection Time Re ceived Time Location / / Volume Laterality 02/10/2021 02/12/2021 2:38 PM LSAT INSTRUCTOR Narrative [facility] - 02/12/2021 Unless otherwise specified, test(s) performed at: [facility], [address] [place] [address] ACCOUNTING SUPPORT SPECIALIST: Alec Payan M.D. For any questions, please call customer service at FREQUENCY:OTHER Resulting Agency Comment Specimen source: Blood Ernie Pompa MD LAB BLOOD ORDERABLES Performing Organization Address City/State/ZIP Code Phon e Number [facility] documented in this encounter Visit Diagnoses Not on filedocumented in this encounter
--- OUTSIDE RECORDS SUMMARY | 2021-11-04 08:38 | XMS_ITS | Encounter Summary ---
:1945 Author Organization [facility] Address [address] [place] [address] Care Team Providers Name Role Phone Unavailable Primary Care Provider Unavailable Encounter Details Date Type Department Care Team Description 10/21/2020 Orders Only [facility] O f Ernie Guzmán MD [address] [place] [address] [place], [place] [phone] (Wo rk) Social History Tobacco Use [...] Received Time / Laterality Volume 10/21/2020 10/21/2020 Kameron Ordering Provider LAB BLOOD ORDERABLES Performing Organization Address City/[facility]/ZIP Code Phon e Number KAMERON IMMUNO CHEMISTRY (10/21/2020) athologist Signature Hep B Surface Negative Negative APS SPECTRA Ag [facility] Specimen (Source) Anatomical Collection Method Collection Time Re ceived Time Location / / Volume Laterality 10/21/2020 10/22/2020 9:40 PM CDT Narrative APS SPECTRA [facility] - 10/23/2020 Unless otherwise specified, test(s) performed at: [facility], [address] [place], [place] [id number] SOLUTION PROFESSIONAL: Alec Payan M.D. For any questions, please call customer service at FREQUENCY:MONTHLY Resulting Agency Comment Specimen source: Serum Ernie Pompa MD LAB BLOOD ORDERABLES Performing Organization Address [facility] Phon e Number APS SPECTRA [facility] (ABNORMAL) Spectrae Chemistry (10/21/2020) athologist [facility] PTH 785 (H) 16 - 80 APS SPECTRA pg/mL [facility] Specimen (Source) Anatomical Collection Method Collection Time Re ceived Time Location / / Volume Laterality 10/21/2020 10/22/2020 8:05 PM CDT Narrative APS SPECTRA [facility] - 10/23/2020 Unless otherwise specified, test(s) performed at: [facility], [address] [place] [address] SOLUTION PROFESSIONAL: Alec Payan M.D. For any questions, please call customer service at FREQUENCY:MONTHLY Resulting Agency Comment Specimen source: Plasma Ernie Pompa MD LAB BLOOD ORDERABLES Performing Organization Address City/[facility] Phon e Number APS SPECTRA [facility] HD KINETICS (10/21/2020) athologist Signature % Urea 76 65 - 80 % APS SPECTRA Reduction [facility] Specimen (Source) Anatomical Collection Method Collection Time Re ceived Time Location / / Volume Laterality 10/21/2020 10/22/2020 9:40 PM CDT Narrative APS SPECTRA [facility] - 10/23/2020 Unless otherwise specified, test(s) performed at: [facility], [address] [place] [address] SOLUTION PROFESSIONAL: Alec Payan M.D. For any questions, please call customer service at FREQUENCY:MONTHLY Resulting Agency Comment Specimen source: Serum Ernie Pompa MD LAB BLOOD ORDERABLES Performing Organization Address City/State/ZIP Code Phon e Number APS SPECTRA [facility] (ABNORMAL) Spectrae Chemistry (10/21/2020) [facility] gist Method Time Signature BUN 45 (H) [...] 10/23/2020 Unless otherwise specified, test(s) performed at: [facility], [address] [place] [address] SOLUTION PROFESSIONAL: Alec Payan M.D. For any questions, please [...] 10/23/2020 Unless otherwise specified, test(s) performed at: [facility], [address] [place] [address] SOLUTION PROFESSIONAL: Alec Payan M.D. For any questions, please [...] 10/22/2020 Unless otherwise specified, test(s) performed at: [facility], [address] [place] [address] SOLUTION PROFESSIONAL: Alec Payan M.D. For any questions, please call customer service at FREQUENCY:MONTHLY Resulting Agency Comment Specimen source: Plasma Ernie Pompa MD LAB BLOOD ORDERABLES Performing Organization Address City/State/[facility] Code Phon e Number APS SPECTRA [facility] documented in this encounter Visit Diagnoses Not on filedocumented in this encounter
--- OUTSIDE RECORDS SUMMARY | 2021-11-04 08:38 | XMS_ITS | Encounter Summary ---
:1945 Author Organization [facility] Address [address] [place] [address] Care Team Providers Name Role Phone Unavailable Primary Care Provider Unavailable Encounter Details Date Type Department Care Team Description 12/09/2020 Treatment [facility] f Ernie Guzmán MD [address] [place] [address] [place], [place] [phone] [phone] (Wo rk) Social History Tobacco Use Types Packs/Day Years Used Date Smoking Tobacco: Unknown Comments: Smoking History Info:Patient n ot screened Sex Assigned at Date Recorded Not on file documented as of this encounter Miscellaneous Notes Dialysis Note - Ernie Pompa MD - 12/09/2020 10:05 AM CDT Date: Dec 09, 2020 Patient Name: Shaun Ocampo : 1945 Chart #: [id number] Sex: M This patient was personally seen [...] AM ) BP (sit): 134/63 AP(-) / VENDING MACHINE FILLER: 227/186 Pulse: 69 Chairside data as of [...] 09/18/2020 Access Flow [id number] > 2000 1138 DIRECTOR OF ANALYTICAL DEVELOPMENT: Ernie Pompa MD LOCATION: [place] [phone] SCHEDULE: -- 2nd Shift ACCESS: EDW: kg. 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 06/10: Doing well overall, no new complaints, [...] Went to Urgent care -> ER in [place] yesterday,CT with R hydro but no obstructive [...] He had infiltration last week, dialyzed at [facility] on Sat and went [...] (09/23/20) Vascular Access Assessment: Type of access: [id number]/2019 Surgeon - Lary GARDNER Access working well [...]
--- OUTSIDE RECORDS SUMMARY | 2021-11-04 08:38 | XMS_ITS | Encounter Summary ---
:1945 Author Organization [facility] Address [address] [place] [address] Care Team Providers Name Role Phone Unavailable Primary Care Provider Unavailable Encounter Details Date Type Department Care Team Description 08/19/2020 Orders Only [facility] O f Ernie Guzmán MD [address] [place] [address] [place], [place] [phone] (Wo rk) Social History Tobacco Use [...] MD LAB BLOOD ORDERABLES Performing Organization Address City/[facility]/ZIP Code Phon e Number APS SPECTRA [facility] POST CHEMISTRY (08/19/2020) athologist Signature BUN Post 11 6 - 19 APS SPECTRA Dialysis mg/dL [facility] Specimen (Source) Anatomical Collection Method Collection Time Re ceived Time Location / / Volume Laterality 08/19/2020 08/21/2020 12:3 5 PM CDT Narrative APS SPECTRA [facility] - 08/22/2020 Unless otherwise specified, test(s) performed at: [facility], [address] [place] [address] CLUTCH ASSEMBLER: Alec Payan M.D. For any questions, please call customer service at FREQUENCY:MONTHLY Resulting Agency Comment Specimen source: Plasma Ernie Pompa MD LAB BLOOD ORDERABLES Performing Organization Address City/[facility]/ZIP Code Phon e Number APS SPECTRA [facility] (ABNORMAL) Spectrae Chemistry (08/19/2020) [facility] Method Time Signature BUN [...] 08/22/2020 Unless otherwise specified, test(s) performed at: [facility], [address] [place] [address] CLUTCH ASSEMBLER: Alec Payan M.D. For any questions, [...] 08/21/2020 Unless otherwise specified, test(s) performed at: [facility], [address] [place] [address] CLUTCH ASSEMBLER: Alec Payan M.D. For any questions, please call customer service at FREQUENCY:MONTHLY Resulting Agency Comment Specimen source: Plasma Ernie Pompa MD LAB BLOOD ORDERABLES Performing Organization Address City/[facility] Phon e Number APS SPECTRA [...] 08/21/2020 Unless otherwise specified, test(s) performed at: [facility], [address] [place] [address] CLUTCH ASSEMBLER: Alec Payan M.D. For any questions, please call customer service at FREQUENCY:MONTHLY Resulting Agency Comment Specimen source: Serum Ernie Pompa MD LAB BLOOD ORDERABLES Performing Organization Address [facility] Phon e Number APS SPECTRA [...] 08/21/2020 Unless otherwise specified, test(s) performed at: [facility], [address] [place] [address] CLUTCH ASSEMBLER: Alec Payan M.D. For any questions, please call customer service at FREQUENCY:MONTHLY Resulting Agency Comment Specimen source: Blood Ernie Pompa MD LAB BLOOD ORDERABLES Performing Organization Address City/State/ZIP Code Phon e Number APS SPECTRA [facility] documented in this encounter Visit Diagnoses Not on filedocumented in this encounter
--- OUTSIDE RECORDS SUMMARY | 2021-11-04 08:38 | XMS_ITS | Encounter Summary ---
:1945 Author Organization [facility] Address [address] [place] [address] Care Team Providers Name Role Phone Unavailable Primary Care Provider Unavailable Encounter Details Date Type Department Care Team Description 12/02/2020 Orders Only [facility] O f Ernie Guzmán MD [phone] [place] [address] [place], [place] [phone] (Wo rk) Social History Tobacco Use [...] 12/03/2020 Unless otherwise specified, test(s) performed at: [facility], [address] [place] [address] [place] PATROL LIEUTENANT: Alec Payan M.D. For any questions, please call customer service at FREQUENCY:OTHER Resulting Agency Comment Specimen source: Blood Ernie Pompa MD LAB BLOOD ORDERABLES Performing Organization Address City/State/ZIP Code Phon e Number APS SPECTRA [facility] documented in this encounter Visit Diagnoses Not on filedocumented in this encounter
--- OUTSIDE RECORDS SUMMARY | 2021-11-04 08:38 | XMS_ITS | Encounter Summary ---
:1945 Author Organization [facility] Address [address] [place] [address] Care Team Providers Name Role Phone Unavailable Primary Care Provider Unavailable Encounter Details Date Type Department Care Team Description 09/09/2020 Treatment [facility] O f Ernie Guzmán MD [address] [place] [address] [place], [place] [phone] [phone] (Wo rk) Social History Tobacco Use Types Packs/Day Years Used Date Smoking Tobacco: Unknown Comments: Smoking History Info:Patient n ot screened Sex Assigned at Date Recorded Not on file documented as of this encounter Miscellaneous Notes Dialysis Note - Ernie Pompa MD - 09/09/2020 10:22 AM CDT Date: Sep 09, 2020 Patient Name: Shaun Ocampo : 1945 Chart #: [id number] Sex: M This patient was personally seen [...] AM ) BP (sit): 116/58 AP(-) / SWITCHBOARD WIRER: 242/201 Pulse: 71 Chairside data as of [...] 06/26/2020 Access Flow [id number] > 2000 ALLEY WORKER: Ernie Pompa MD LOCATION: [place] [phone] SCHEDULE: -- 2nd Shift ACCESS: EDW: kg. 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 06/10: Doing well overall, no new complaints, [...] Went to Urgent care -> ER in [place] yesterday,CT with R hydro but no obstructive [...] He had infiltration last week, dialyzed at [facility] on Sat and went well, access [...] (06/24/20) Vascular Access Assessment: Type of access: [id number]/2019 Surgeon - Lary GARDNER Access working well [...]
--- OUTSIDE RECORDS SUMMARY | 2021-11-04 08:38 | XMS_ITS | Encounter Summary ---
:1945 Author Organization [facility] Address [address] [place] [address] Care Team Providers Name Role Phone Unavailable Primary Care Provider Unavailable Encounter Details Date Type Department Care Team Description 11/18/2020 Treatment [facility] O Ernie Gómez MD [address] [place] [address] [place], [place] [address] [phone] (Wo rk) Social History Tobacco Use Types Packs/Day Years Used Date Smoking Tobacco: Unknown Comments: Smoking History Info:Patient n ot screened Sex Assigned at Date Recorded Not on file documented as of this encounter Miscellaneous Notes Dialysis Note - Ernie Pompa MD - 11/18/2020 9:48 AM CDT Date: Nov 18, 2020 Patient Name: Shaun Ocampo : 1945 Chart #: [id number] Sex: M This patient was personally seen [...] 1.5 mcg ORAL Every Treatment 11/02/2020 11/01/2021 DIVISION SERVICE MANAGER: Ernie Pompa MD LOCATION: [phone] SCHEDULE: -- 2nd Shift EDW: kg. 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 06/10: Doing well overall, no new complaints, [...] Went to Urgent care -> ER in [place] yesterday,CT with R hydro but no obstructive [...] He had infiltration last week, dialyzed at [facility] on Sat and went well, access ok [...] prescription. Vascular Access Assessment Type of access: [id number]/2019 Surgeon Anniat KUMARW Access working well Anemia Assessment HEMOGLOBIN [...] above goal. Intact PTH is above goal. Pantry Attendant will adjust binders and vitamin D per [...]
--- OUTSIDE RECORDS SUMMARY | 2021-11-04 08:38 | XMS_ITS | Encounter Summary ---
:1945 Author Organization [facility] Address [address] [place] [address] Care Team Providers Name Role Phone Unavailable Primary Care Provider Unavailable Encounter Details Date Type Department Care Team Description 11/11/2020 Orders Only [facility] O f Ernie Guzmán MD [address] [place] [address] [place], [place] [phone] (Wo rk) Social History Tobacco Use [...] 11/12/2020 Unless otherwise specified, test(s) performed at: [facility], [address] [place] [address] MANAGER MONEY: Alec Payan M.D. For any questions, please call customer service at FREQUENCY:OTHER Resulting Agency Comment Specimen source: Blood Ernie Popma MD LAB BLOOD ORDERABLES Performing Organization Address City/State/ZIP Code Phon e Number APS SPECTRA [facility] documented in this encounter Visit Diagnoses Not on filedocumented in this encounter
--- OUTSIDE RECORDS SUMMARY | 2021-11-04 08:38 | XMS_ITS | Encounter Summary ---
:1945 Author Organization [facility] Address [address] [place] [address] Care Team Providers Name Role Phone Unavailable Primary Care Provider Unavailable Encounter Details Date Type Department Care Team Description 09/09/2020 Orders Only [facility] O f Ernie Guzmán MD [address] [place] [address] [place], [place] [phone] (Wo rk) Social History Tobacco Use [...] 09/11/2020 Unless otherwise specified, test(s) performed at: [facility], [address] [place] [address] CHAIN FORMING MACHINE OPERATOR: Alec Payan M.D. For any questions, please call customer service at FREQUENCY:OTHER Resulting Agency Comment Specimen source: Blood Ernie Pompa MD LAB BLOOD ORDERABLES Performing Organization Address City/State/ZIP Code Phon e Number APS SPECTRA [facility] documented in this encounter Visit Diagnoses Not on filedocumented in this encounter
--- OUTSIDE RECORDS SUMMARY | 2021-11-04 08:38 | XMS_ITS | Encounter Summary ---
:1945 Author Organization [facility] Address [address] [place] [address] Care Team Providers Name Role Phone Unavailable Primary Care Provider Unavailable Encounter Details Date Type Department Care Team Description 12/09/2020 Orders Only [facility] O f Ernie Guzmán MD [address] [place] [address] [place], [place] [phone] (Wo rk) Social History Tobacco Use Types Packs/Day Years Used Date Smoking Tobacco: Unknown Comments: Smoking History Info:Patient n ot screened Sex Assigned at Date Recorded Not on file documented as of this encounter Plan of Treatment Not on filedocumented as of this encounter Procedures Procedure Name Priority Date/Time Associated Diagnosis Comme nts HEMATOLOGY Routine 12/09/2020 Results for thi s procedure are in the resu lts section. documented in this encounter Results (ABNORMAL) HEMATOLOGY (12/09/2020) Analysis Performed At Patho logist Time Signature Hemoglobin 9.5 (L) 14.0 - APS SPECTRA 18.0 g/dL [facility] Hemoglobin x 3 28.5 (L) 42.0 - APS SPECTRA 54.0 % [facility] Specimen (Source) Anatomical Collection Method Collection Time Re ceived Time Location / / Volume Laterality 12/09/2020 12/10/2020 10:0 5 AM CDT Narrative APS SPECTRA [facility] - 12/10/2020 Unless otherwise specified, test(s) performed at: [facility], [address] [place] [address] FURNACE OPERATOR AND TENDER: Alec Payan M.D. For any questions, please call customer service at FREQUENCY:OTHER Resulting Agency Comment Specimen source: Blood Ernie Pompa MD LAB BLOOD ORDERABLES Performing Organization Address City/State/ZIP Code Phon e Number APS SPECTRA [facility] documented in this encounter Visit Diagnoses Not on filedocumented in this encounter
--- OUTSIDE RECORDS SUMMARY | 2021-11-04 08:38 | XMS_ITS | Encounter Summary ---
:1945 Author Organization [facility] Address [address] [place] [address] Care Team Providers Name Role Phone Unavailable Primary Care Provider Unavailable Encounter Details Date Type Department Care Team Description 09/23/2020 Orders Only [facility] O f Ernie Guzmán MD [address] [place] [address] [place], [place] [phone] (Wo rk) Social History Tobacco Use [...] 09/24/2020 Unless otherwise specified, test(s) performed at: [facility], [address] [place] [address] INDUSTRIAL MAINTENANCE TECH: Alec Payan M.D. For any questions, please call customer service at FREQUENCY:MONTHLY Resulting Agency Comment Specimen source: Plasma Ernie Pompa MD LAB BLOOD ORDERABLES Performing Organization Address City/[facility]/ZIP Code Phon e Number APS SPECTRA [...] 09/24/2020 Unless otherwise specified, test(s) performed at: [facility], [address] [place] [address] INDUSTRIAL MAINTENANCE TECH: Alec Payan M.D. For any questions, please call customer service at FREQUENCY:MONTHLY Resulting Agency Comment Specimen source: Blood Ernie Pompa MD LAB BLOOD ORDERABLES Performing Organization Address City/[facility] Phon e Number APS SPECTRA [facility] [...] BANK TEST ORDERABL ES Performing Organization Address City/[facility]/ZIP Code Phon e Number APS SPECTRA [...] 09/24/2020 Unless otherwise specified, test(s) performed at: [facility], [address] [place] [address] INDUSTRIAL MAINTENANCE TECH: Alec Payan M.D. For any questions, please call customer service at FREQUENCY:MONTHLY Resulting Agency Comment Specimen source: Serum Ernie Pompa MD LAB BLOOD ORDERABLES Performing Organization Address City/State/ZIP Code Phon e Number APS SPECTRA [facility] documented in this encounter Visit Diagnoses Not on filedocumented in this encounter
--- OUTSIDE RECORDS SUMMARY | 2021-11-04 08:38 | XMS_ITS | Encounter Summary ---
:1945 Author Organization [facility] Address [address] [place] [address] Care Team Providers Name Role Phone Unavailable Primary Care Provider Unavailable Encounter Details Date Type Department Care Team Description 12/23/2020 Orders Only [facility] O f Ernie Guzmán MD [address] [place] [address] [place], [place] [phone] (Wo rk) Social History Tobacco Use [...] ([place]) nPCR_HD 0.92 KAMERON spKt/V Gotch 1.72 KAMERON eNPCR 0.82 KAMERON PCR 60.88 KAMERON eKt/V Gotch 1.49 KAMERON eKdrt/V 1.49 KAMERON Specimen (Source) Anatomical Location Collection Method / Collectio n Time Received Time / Laterality Volume 12/23/2020 12/23/2020 Kameron Ordering Provider LAB BLOOD ORDERABLES Performing Organization Address City/[facility]/ZIP Code Phon e Number KAMERON HD KINETICS (12/23/2020) P athologist Signature % Urea 75 65 - 80 % APS SPECTRA Reduction [facility] Specimen (Source) Anatomical Collection Method Collection Time Re ceived Time Location / / Volume Laterality 12/23/2020 12/24/2020 8:52 PM CDT Narrative APS SPECTRA [facility] - 12/25/2020 Unless otherwise specified, test(s) performed at: [facility], [address] [place], [place] [id number] BOX SPRING FRAME BUILDER: Alec Payan M.D. For any questions, please call customer service at FREQUENCY:MONTHLY Resulting Agency Comment Specimen source: Serum Ernie Pompa MD LAB BLOOD ORDERABLES Performing Organization Address [facility] Phon e Number APS SPECTRA [facility] IMMUNO CHEMISTRY (12/23/2020) P athologist Signature Hep B Surface Negative Negative APS SPECTRA Ag [facility] Specimen (Source) Anatomical Collection Method Collection Time Re ceived Time Location / / Volume Laterality 12/23/2020 12/24/2020 8:51 PM CDT Narrative APS SPECTRA [facility] - 12/25/2020 Unless otherwise specified, test(s) performed at: [facility], [address] [place] [address] BOX SPRING FRAME BUILDER: Alec Payan M.D. For any questions, please call customer service at FREQUENCY:MONTHLY Resulting Agency Comment Specimen source: Serum Ernie Pompa MD LAB BLOOD ORDERABLES Performing Organization Address City/[facility] Code Phon e Number APS [...] 12/25/2020 Unless otherwise specified, test(s) performed at: [facility], [address] [place] [address] BOX SPRING FRAME BUILDER: Alec Payan M.D. For any questions, please [...] 12/25/2020 Unless otherwise specified, test(s) performed at: [facility], [address] [place] [address] BOX SPRING FRAME BUILDER: Alec Payan M.D. For any questions, please call customer service at FREQUENCY:MONTHLY Resulting Agency Comment Specimen source: Plasma Ernie Pompa MD LAB BLOOD ORDERABLES Performing Organization Address City/[facility] Phon e Number APS SPECTRA [facility] POST CHEMISTRY (12/23/2020) P athologist Signature BUN Post 11 6 - 19 APS SPECTRA Dialysis mg/dL [facility] Specimen (Source) Anatomical Collection Method Collection Time Re ceived Time Location / / Volume Laterality 12/23/2020 12/24/2020 3:54 PM CDT Narrative APS SPECTRA [facility] - 12/24/2020 Unless otherwise specified, test(s) performed at: [facility], [address] [place] [address] BOX SPRING FRAME BUILDER: Alec Payan M.D. For any questions, please [...] 12/24/2020 Unless otherwise specified, test(s) performed at: [facility], [address] [place] [address] BOX SPRING FRAME BUILDER: Alec Payan M.D. For any questions, please call customer service at FREQUENCY:MONTHLY Resulting Agency Comment Specimen source: Blood Ernie Pompa MD LAB BLOOD ORDERABLES Performing Organization Address City/State/ZIP Code Phon e Number APS SPECTRA [facility] documented in this encounter Visit Diagnoses Not on filedocumented in this encounter
--- OUTSIDE RECORDS SUMMARY | 2021-11-04 08:38 | XMS_ITS | Encounter Summary ---
:1945 Author Organization [facility] Address [address] [place] [address] Care Team Providers Name Role Phone Unavailable Primary Care Provider Unavailable Encounter Details Date Type Department Care Team Description 2020 Orders Only [facility] f Ernie Guzmán MD [phone] [place] [address] [place], [place] [phone] (Wo rk) Social History Tobacco Use [...] 08/06/2020 Unless otherwise specified, test(s) performed at: [facility], [address] [place] [address] STATION INSTALLER AND REPAIRER: Alec Payan M.D. For any questions, please call customer service at FREQUENCY:OTHER Resulting Agency Comment Specimen source: Blood Ernie Pompa MD LAB BLOOD ORDERABLES Performing Organization Address City/State/ZIP Code Phon e Number [facility] documented in this encounter Visit Diagnoses Not on filedocumented in this encounter
--- OUTSIDE RECORDS SUMMARY | 2021-11-04 08:38 | XMS_ITS | Encounter Summary ---
:1945 Author Organization [facility] Address [address] [place] [address] Care Team Providers Name Role Phone Unavailable Primary Care Provider Unavailable Encounter Details Date Type Department Care Team Description 11/25/2020 Orders [facility] O f Ernie Guzmán MD [phone] [place] [address] [place], [place] [phone] (Wo rk) Social History Tobacco Use [...] 11/26/2020 Unless otherwise specified, test(s) performed at: [facility], [address] [place] [address] UTILITY WORKER DRIVER: Alec Payan M.D. For any questions, please call customer service at FREQUENCY:OTHER Resulting Agency Comment Specimen source: Blood Ernie Pompa MD LAB BLOOD ORDERABLES Performing Organization Address City/State/ZIP Code Phon e Number [facility] documented in this encounter Visit Diagnoses Not on filedocumented in this encounter
--- OUTSIDE RECORDS SUMMARY | 2021-11-04 08:38 | XMS_ITS | Encounter Summary ---
:1945 Author Organization [facility] Address [address] [place] [address] Care Team Providers Name Role Phone Unavailable Primary Care Provider Unavailable Encounter Details Date Type Department Care Team Description 10/28/2020 Orders [facility] O f Ernie Guzmán MD [phone] [place] [address] [place], [place] [phone] (Wo rk) Social History Tobacco Use [...] 10/29/2020 Unless otherwise specified, test(s) performed at: [facility], [address] [place] [address] CARPENTER MATE: Alec Payan M.D. For any questions, please call customer service at FREQUENCY:OTHER Resulting Agency Comment Specimen source: Blood Ernie Pompa MD LAB BLOOD ORDERABLES Performing Organization Address City/State/ZIP Code Phon e Number [facility] documented in this encounter Visit Diagnoses Not on filedocumented in this encounter
--- OUTSIDE RECORDS SUMMARY | 2021-11-04 08:38 | XMS_ITS | Encounter Summary ---
:1945 Author Organization [facility] Address [address] [place] [address] Care Team Providers Name Role Phone Unavailable Primary Care Provider Unavailable Encounter Details Date Type Department Care Team Description 10/07/2020 Treatment [facility] f Ernie Guzmán MD [address] [place] [address] [place], [place] [phone] (Wo rk) Social History Tobacco Use Types Packs/Day Years Used Date Smoking Tobacco: Unknown Comments: Smoking History Info:Patient n ot screened Sex Assigned at Date Recorded Not on file documented as of this encounter Miscellaneous Notes Dialysis Note - Ernie Pompa MD - 10/07/2020 10:59 AM CDT Date: Oct 07, 2020 Patient Name: Shaun Ocampo : 1945 Chart #: [id number] Sex: M This patient was personally seen [...] AM ) BP (sit): 125/63 AP(-) / SOUP PERSON: 232/178 Pulse: 70 Chairside data as of [...] Every 2 weeks During Dialysis 09/30/2020 09/29/2021 PUMP HOUSE OPERATOR: Ernie Pompa MD LOCATION: [facility] [phone] SCHEDULE: M-W- 2nd Shift ACCESS: EDW: kg. 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 06/10: Doing well overall, no new complaints, [...] Went to Urgent care -> ER in [place] yesterday,CT with R hydro but no obstructive [...] had infiltration last week, dialyzed at [facility] on Sat and went well, access [...] (07/22/20) Vascular Access Assessment: Type of access: [id number]/2019 Surgeon - Lary KUMARW Access working well [...]
--- OUTSIDE RECORDS SUMMARY | 2021-11-04 08:38 | XMS_ITS | Encounter Summary ---
:1945 Author Organization [facility] Address [address] [place] [address] Care Team Providers Name Role Phone Unavailable Primary Care Provider Unavailable Encounter Details Date Type Department Care Team Description 09/02/2020 Orders [facility] O f Ernie Guzmán MD [phone] [place] [address] [place], [place] [phone] (Wo rk) Social History Tobacco Use [...] 09/03/2020 Unless otherwise specified, test(s) performed at: [facility], [address] [place] [address] DRAPERY SUPERVISOR: Alec Payan M.D. For any questions, please call customer service at FREQUENCY:OTHER Resulting Agency Comment Specimen source: Blood Ernie Pompa MD LAB BLOOD ORDERABLES Performing Organization Address City/State/ZIP Code Phon e Number [facility] documented in this encounter Visit Diagnoses Not on filedocumented in this encounter
--- OUTSIDE RECORDS SUMMARY | 2021-11-04 08:38 | XMS_ITS | Encounter Summary ---
:1945 Author Organization [facility] Address [address] [place] [address] Care Team Providers Name Role Phone Unavailable Primary Care Provider Unavailable Encounter Details Date Type Department Care Team Description 07/29/2020 Orders [facility] O f Ernie Guzmán MD [phone] [place] [address] [place], [place] [phone] (Wo rk) Social History Tobacco Use [...] 07/30/2020 Unless otherwise specified, test(s) performed at: [facility], [address] [place] [address] MILK SAMPLER: Alec Payan M.D. For any questions, please call customer service at FREQUENCY:OTHER Resulting Agency Comment Specimen source: Blood Ernie Pompa MD LAB BLOOD ORDERABLES Performing Organization Address City/State/ZIP Code Phon e Number [facility] documented in this encounter Visit Diagnoses Not on filedocumented in this encounter
--- OUTSIDE RECORDS SUMMARY | 2021-11-04 08:38 | XMS_ITS | Encounter Summary ---
:1945 Author Organization [facility] Address [address] [place] [address] Care Team Providers Name Role Phone Unavailable Primary Care Provider Unavailable Encounter Details Date Type Department Care Team Description 09/30/2020 Orders [facility] O f Ernie Guzmán MD [phone] [place] [address] [place], [place] [phone] (Wo rk) Social History Tobacco Use [...] Provider LAB BLOOD ORDERABLES Performing Organization Address [facility] Code Phon e Number KAMERON (ABNORMAL) HEMATOLOGY [...] 10/02/2020 Unless otherwise specified, test(s) performed at: [facility], [address] [place], [place] [address] VISITOR INFORMATION ASSISTANT: Alce Payan M.D. For any questions, please call customer service at FREQUENCY:OTHER Resulting Agency Comment Specimen source: Blood Ernie Pompa MD LAB BLOOD ORDERABLES Performing Organization Address [facility] Phon e Number [facility] HD KINETICS (09/30/2020) P athologist Signature % Urea 77 65 - 80 % [facility] Reduction [facility] Specimen (Source) Anatomical Collection Method Collection Time Re ceived Time Location / / Volume Laterality 09/30/2020 10/01/2020 5:40 PM CDT Narrative [facility] - 10/01/2020 Unless otherwise specified, test(s) performed at: [facility], [address] [place] [address] VISITOR INFORMATION ASSISTANT: Alec Payan M.D. For any questions, please call customer service at FREQUENCY:OTHER Resulting Agency Comment Specimen source: Serum Ernie Pompa MD LAB BLOOD ORDERABLES Performing Organization Address [facility] Phon e Number APS SPECTRA [facility] (ABNORMAL) Spectrae Chemistry (09/30/2020) P athologist Signature BUN 44 (H) 6 - 19 [facility] mg/dL [facility] Specimen (Source) Anatomical Collection Method Collection Time Re ceived Time Location / / Volume Laterality 09/30/2020 10/01/2020 5:39 PM CDT Narrative [facility] - 10/01/2020 Unless otherwise specified, test(s) performed at: [facility], [address] [place] [address] VISITOR INFORMATION ASSISTANT: Alec Payan M.D. For any questions, please call customer service at FREQUENCY:OTHER Resulting Agency Comment Specimen source: Serum Ernie Pompa MD LAB BLOOD ORDERABLES Performing Organization Address City/[facility]/ZIP [facility] Phon e Number [facility] POST CHEMISTRY (09/30/2020) P athologist Signature BUN Post 10 6 - 19 APS SPECTRA Dialysis mg/dL [facility] Specimen (Source) Anatomical Collection Method Collection Time Re ceived Time Location / / Volume Laterality 09/30/2020 10/01/2020 12:4 3 PM CDT Narrative [facility] - 10/01/2020 Unless otherwise specified, test(s) performed at: [facility], [address] [place] [address] VISITOR INFORMATION ASSISTANT: Alec Payan M.D. For any questions, please call customer service at FREQUENCY:OTHER Resulting Agency Comment Specimen source: Plasma Ernie Pompa MD LAB BLOOD ORDERABLES Performing Organization Address City/[facility]/ZIP [facility] Phon e Number [facility] documented in this encounter Visit Diagnoses Not on filedocumented in this encounter
--- OUTSIDE RECORDS SUMMARY | 2021-11-04 08:38 | XMS_ITS | Encounter Summary ---
:1945 Author Organization [facility] Address [address] [place] [address] Care Team Providers Name Role Phone Unavailable Primary Care Provider Unavailable Encounter Details Date Type Department Care Team Description 2020 Treatment [facility] f Ernie Guzmán MD [address] [place] [address] [place], [place] [phone] (Wo rk) Social History Tobacco Use Types Packs/Day Years Used Date Smoking Tobacco: Unknown Comments: Smoking History Info:Patient n ot screened Sex Assigned at Date Recorded Not on file documented as of this encounter Miscellaneous Notes Dialysis Note - Ernie Pompa MD - 2020 10:59 AM CDT Date: 2020 Patient Name: Shaun Ocampo : 1945 Chart #: [id number] Sex: M This patient was personally seen for a basic visit as part of routine weekly dialysis care. A reviewof the dialysis treatment, blood pressure, estimated dry weight and recent lab values was made. These were discussed with the patient and staff as necessary. BEAUTY THERAPIST: Ernie Pompa MD LOCATION: [phone] SCHEDULE: M-W-F 2nd Shift ACCESS: EDW: kg. [...] for ureteral ?tumor early next month in [place]. 06/10: Doing well overall, no new complaints, [...] Went to Urgent care -> ER in [place] yesterday,CT with R hydro but no obstructive [...] had infiltration last week, dialyzed at [facility] on Sat and went well, access ok [...] (05/20/20) Vascular Access Assessment: Type of access: [email or web address]/2019 Surgeon - Lary GARDNER Access working well Impression and Plan No changes in prescription Discussed fluid gains, possible need for increased time on HD but he really wants to avoid more [id number]. Discussed possible need for extra treatments occasionally [...]
--- OUTSIDE RECORDS SUMMARY | 2021-11-04 08:38 | XMS_ITS | Encounter Summary ---
:1945 Author Organization [facility] Address [address] [place] [address] Care Team Providers Name Role Phone Unavailable Primary Care Provider Unavailable Encounter Details Date Type Department Care Team Description 09/25/2020 Orders Only [facility] O f Ernie Guzmán MD [address] [place] [address] [place], [place] [phone] (Wo rk) Social History Tobacco Use [...] 09/26/2020 Unless otherwise specified, test(s) performed at: [facility], [address] [place] [address] PACKING CLERK: Alec Payan M.D. For any questions, please call customer service at FREQUENCY:OTHER Resulting Agency Comment Specimen source: Serum Ernie Pompa MD LAB BLOOD ORDERABLES Performing Organization Address City/State/ZIP Code Phon e Number [facility]PS [facility] documented in this encounter Visit Diagnoses Not on filedocumented in this encounter
--- OUTSIDE RECORDS SUMMARY | 2021-11-04 08:38 | XMS_ITS | Encounter Summary ---
:1945 Author Organization [facility] Address [address] [place] [address] Care Team Providers Name Role Phone Unavailable Primary Care Provider Unavailable Encounter Details Date Type Department Care Team Description 08/19/2020 Treatment [facility] f Ernie Guzmán MD [address] [place] [address] [place], [place] [phone] (Wo rk) Social History Tobacco Use Types Packs/Day Years Used Date Smoking Tobacco: Unknown Comments: Smoking History Info:Patient n ot screened Sex Assigned at Date Recorded Not on file documented as of this encounter Miscellaneous Notes Dialysis Note - Ernie Pompa MD - 08/19/2020 12:37 PM CDT Date: Aug 19, 2020 Patient Name: Shaun Ocampo : 1945 Chart #: [id number] Sex: M This patient was personally seen for a complete visit as part of routine monthly dialysis care. A review of the dialysis treatment, blood pressure, estimated dry weight and recent lab values was made. These were discussed with the patient and staff as necessary. Treatment Data for 08/19/2020 started at:9:07 AM Dialyzer: 180NRe Optiflux Na: 138 mEq/L Bicarb: 30 mEq/L Dialysate: 3.0 K, 2.25 Ca, 1.0 Mg, 100 Dextrose (G3231) Dialysate/Machine Temp (prescribed): 37 C Dialysate/Machine Temp (actual): 37 C BFR (prescribed): 500 BFR (actual): 500 Prescribed time: 04:00 EDW: 108 kg Access Type: Active (In Use):AVFistula-Standard/Left Upper Arm Pre Dialysis Vitals (for 08/19/2020 8:59 AM ) Pre BP (sit): 126/57 Pre Wt: 115.1 kg Temp: 98.4 F Post Dialysis Vitals (for 08/17/2020 1:05 PM ) Post BP (sit): 145/69 Post Wt: 111.1 kg Current Dialysis Vitals (for 08/19/2020 12:32 PM ) BP (sit): 110/40 AP(-) / ADDRESSOGRAPH OPERATOR: 250/194 Pulse: 67 Chairside data as of 08/19/2020 12:32 PM Last 3 Treatments 08/17/2020 08/14/2020 08/12/2020 EDW (kg) 108 108 108 Weight Pre (kg) 115.3 114.4 115.1 Weight Post (kg) 111.1 110.2 110.5 Dialytic Weight Loss (kg) -4.2 -4.2 -4.6 EDW Deviation (kg) 3.1 2.2 2.5 BP Sit Pre 139/55 142/62 132/71 BP Sit Post 145/69 130/66 142/68 UF Rate (mL/kg/hr) 10 10 11 Prescribed BFR 500 500 500 Average Delivered BFR 500 500 500 Prescribed Treatment Time 04:00 04:00 04:00 Actual Treatment Time 04:04 04:01 04:00 Last 3 Values 07/24/2020 06/26/2020 05/29/2020 Access Flow 1359 > 2000 > 2000 Treatment Medication Orders [...] 1X Week During Dialysis 08/10/2020 08/09/2021 Mircera 75 mcg IVP Every 4 weeks During Dialysis 08/19/2020 08/18/2021 PAD TUFTER: Ernie Pompa MD LOCATION: [phone] SCHEDULE: M-W- 2nd Shift EDW: kg. DIALYZER: HD DURATION: NEEDLE SIZE: ANTICOAG: BATH: QB: ml/min QD: ml/min Subjective Tolerating dialysis well. 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 06/10: Doing well overall, no new [...] Went to Urgent care -> ER in [place] yesterday,CT with R hydro but no obstructive [...] last week, dialyzed at [facility] on Sat and went well, access [...] Treatment and Adequacy Assessment BUN mg/dL 58 (07/22/20) 58 (06/24/20) 56 [...] (06/24/20) 1.8400 (05/20/20) 1.8600 (04/22/20) 1.9100 (03/25/20) Dialysis is adequate. Achieves prescribed time - Yes Achieves prescribed frequency - Yes Continue current prescription. Vascular Access Assessment Type of access: [id number]/2019 Surgeon - Lary GARDNER Access working well Anemia Assessment HEMOGLOBIN (G/DL) IN BLOOD g/dL 9.1 (08/12/20) 9.9 (08/05/20) 10.7 (07/29/20) 11.0 (07/22/20) 10.2 (07/15/20) PLATELETS 1000/mcL 152 (07/22/20) 153 (06/24/20) 196 (05/20/20) 192 (04/22/20) 169 (03/25/20) IRON SATURATION % 26 (07/22/20) 32 (06/24/20) 33 (05/20/20) 32 (04/22/20) 31 (03/25/20) FERRITIN ng/mL 951 (06/24/20) 1040 (03/25/20) 912 (01/29/20) 732 (12/25/19) 844 (09/18/19) Hemoglobin is below goal. Iron Saturation is at goal. Ferritin is at goal. Will adjust NATALEE and intravenous iron per protocol. Nutritional and Metabolic Assessment ALBUMIN (G/DL) g/dL 4.0 (07/22/20) 3.8 (06/24/20) 3.8 (05/20/20) 3.9 (04/22/20) 3.9 (03/25/20) Sodium mEq/L 137 (07/22/20) 137 (06/24/20) 134 (05/20/20) 137 (04/22/20) 135 (03/25/20) POTASSIUM (MMOL/L) IN SER/PLAS mEq/L 4.2 (07/22/20) 4.5 (06/24/20) 5.1 (05/20/20) 4.2 (04/22/20) 4.8 (03/25/20) BICARBONATE (CO2) mEq/L 25 (07/22/20) 24 (06/24/20) 24 (05/20/20) 24 (04/22/20) 24 (03/25/20) 25 OH VITAMIN D ng/mL 37.9 (03/25/20) 62.4 (09/18/19) Albumin is at goal. Encourage high-biological value protein intake. Potassium is at goal. Bicarbonate is at goal. Continue same bicarbonate in dialysate. Bone and Mineral Metabolism Assessment Calcium mg/dL 8.9 (07/22/20) 8.8 (06/24/20) 9.5 (05/20/20) 9.3 (04/22/20) 9.9 (03/25/20) CALCIUM (MG/DL) CORRECTED FOR ALBUMIN IN SER/PLAS mg/dL 8.9 (07/22/20) 9.0 (06/24/20) 9.7 (05/20/20) 9.4 (04/22/20) 10.0 (03/25/20) PHOSPHATE (MG/DL) IN SER/PLAS mg/dL 6.2 (07/22/20) 5.5 (06/24/20) 6.2 (05/20/20) 5.7 (04/22/20) 5.9 (03/25/20) CALCIUM PHOSPHORUS PRODUCT, COR 55 (07/22/20) 50 (06/24/20) 60 (05/20/20) 54 (04/22/20) 59 (03/25/20) IPTH pg/mL 1020 (07/22/20) 807 (06/24/20) 952 (05/20/20) 1004 (04/22/20) 828 (03/25/20) Corrected Calcium is at goal. Phosphorous is above goal. Intact PTH is above goal. Supervisor Rolling Room will adjust binders and vitamin D per protocol and continue to provide dietary education. repeat labs after binder and increase in calcitriol last month Cardiovascular Assessment Blood pressures reviewed and are [...] prescription Discussed weight gains again, may need extra run to get to EDW. He is very resistant to increasing time. Ernie Pompa MD [ Signed And locked electronically On 08/19/2020 at 12:39:08 PM ] Transcribed: Ernie Pompa ( 08/19/2020 ) documented in this encounter Plan of Treatment Not on filedocumented as of this encounter Visit Diagnoses Not on filedocumented in this encounter
--- OUTSIDE RECORDS SUMMARY | 2021-11-04 08:38 | XMS_ITS | Encounter Summary ---
:1945 Author Organization [facility] Address [address] [place] [address] Care Team Providers Name Role Phone Unavailable Primary Care Provider Unavailable Encounter Details Date Type Department Care Team Description 10/21/2020 Treatment [facility] O Ernie Gómez MD [address] [place] [address] [place], [place] [phone] (Wo rk) Social History Tobacco Use Types Packs/Day Years Used Date Smoking Tobacco: Unknown Comments: Smoking History Info:Patient n ot screened Sex Assigned at Date Recorded Not on file documented as of this encounter Miscellaneous Notes Dialysis Note - Ernie Pompa MD - 10/21/2020 12:00 PM CDT Date: Oct 21, 2020 Patient Name: Shaun Ocampo : 1945 Chart #: [id number] Sex: M This patient was personally seen [...] Every 2 weeks During Dialysis 09/30/2020 09/29/2021 MOLDER WAX BALL: Ernie Pompa MD LOCATION: [phone] SCHEDULE: -W- 2nd Shift EDW: kg. DIALYZER: HD DURATION: NEEDLE SIZE: ANTICOAG: BATH: QB: ml/min QD: ml/min Subjective Tolerating dialysis well. 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 06/10: Doing well overall, no new complaints, [...] Went to Urgent care -> ER in [place] yesterday,CT with R hydro but no obstructive [...] He had infiltration last week, dialyzed at [facility] on Sat and went well, access [...] Treatment and Adequacy Assessment BUN mg/dL 44 (09/30/20) 52 (09/25/20) 50 [...] (08/19/20) 1.8700 (07/22/20) 1.7800 (06/24/20) 1.8400 (05/20/20) Dialysis is adequate. Achieves prescribed time - Yes Achieves prescribed frequency - Yes Continue current prescription. Vascular Access Assessment Type of access: [id number]/2019 Surgeon - Lary KUMARW Access working well Anemia Assessment HEMOGLOBIN (G/DL) IN BLOOD g/dL 10.6 (10/14/20) 10.4 (10/07/20) 10.3 (09/30/20) 9.8 (09/23/20) 9.6 (09/16/20) PLATELETS 1000/mcL 180 (09/23/20) 147 (08/19/20) 152 [...] and Metabolic Assessment ALBUMIN (G/DL) g/dL 3.7 (09/23/20) 3.9 (08/19/20) 4.0 (07/22/20) 3.8 (06/24/20) 3.8 (05/20/20) Sodium mEq/L 134 (09/23/20) 138 (08/19/20) 137 (07/22/20) 137 (06/24/20) 134 (05/20/20) POTASSIUM (MMOL/L) IN SER/PLAS mEq/L 4.8 (09/23/20) 5.5 (08/19/20) 4.2 (07/22/20) 4.5 (06/24/20) 5.1 (05/20/20) BICARBONATE (CO2) mEq/L 23 (09/23/20) 23 (08/19/20) 25 (07/22/20) 24 (06/24/20) 24 (05/20/20) 25 OH VITAMIN D ng/mL 37.9 (09/23/20) 37.9 (03/25/20) Albumin is below goal. Encourage high-biological value protein intake. Potassium is at goal. Bicarbonate is at goal. Continue same bicarbonate in dialysate. Bone and Mineral Metabolism Assessment Calcium mg/dL 9.0 (09/23/20) 9.5 (08/19/20) 8.9 (07/22/20) 8.8 (06/24/20) 9.5 (05/20/20) CALCIUM (MG/DL) CORRECTED FOR ALBUMIN IN SER/PLAS mg/dL 9.2 (09/23/20) 9.6 (08/19/20) 8.9 (07/22/20) 9.0 (06/24/20) 9.7 (05/20/20) PHOSPHATE (MG/DL) IN SER/PLAS mg/dL 5.5 (09/23/20) 5.1 (08/19/20) 6.2 (07/22/20) 5.5 (06/24/20) 6.2 (05/20/20) CALCIUM PHOSPHORUS PRODUCT, COR 51 (09/23/20) 49 (08/19/20) 55 (07/22/20) 50 (06/24/20) 60 (05/20/20) IPTH pg/mL 835 (09/23/20) 696 (08/19/20) 1020 (07/22/20) 807 (06/24/20) 952 (05/20/20) Corrected Calcium is at goal. Phosphorous is at goal. Intact PTH is above goal. Mortgage Sales Manager will adjust binders and vitamin D per protocol and continue to provide dietary education. Cardiovascular Assessment Blood pressures reviewed and are acceptable. Intradialytic weight gains are too high. Estimated dry weight is appropriate. Discussed fluid restriction multiple times but unable to make progress in high fluid gains. Transplant Status: Patient is not a candidate. Weight, co-morbidities, age Resuscitation Status Stable dialysis Fluid gains high but hard to reduce further and he declines extra treatments of longer time on dialysis. However, never hospitalized since starting dialysis and no sx of fluid overload and he generallygets back to EDW with time or very close by end of week so will monitor closely without changes at this time Enrie Pompa MD [ Signed And locked electronically On 10/21/2020 at 12:02:45 PM ] Transcribed: Ernie Pompa ( 10/21/2020 ) documented in this encounter Plan of Treatment Not on filedocumented as of this encounter Visit Diagnoses Not on filedocumented in this encounter
--- OUTSIDE RECORDS SUMMARY | 2021-11-04 08:38 | XMS_ITS | Encounter Summary ---
:1945 Author Organization [facility] Address [address] [place] [address] Care Team Providers Name Role Phone Unavailable Primary Care Provider Unavailable Encounter Details Date Type Department Care Team Description 11/11/2020 Treatment [facility] f Ernie Guzmán MD [address] [place] [address] [place], [place] [phone] (Wo rk) Social History Tobacco Use Types Packs/Day Years Used Date Smoking Tobacco: Unknown Comments: Smoking History Info:Patient n ot screened Sex Assigned at Date Recorded Not on file documented as of this encounter Miscellaneous Notes Dialysis Note - Ernie Pompa MD - 11/11/2020 9:40 AM CDT Date: Nov 11, 2020 Patient Name: Shaun Ocampo : 1945 Chart #: [id number] Sex: M This patient was personally seen for a basic visit as part of routine weekly dialysis care. A reviewof the dialysis treatment, blood pressure, estimated dry weight and recent lab values was made. These were discussed with the patient and staff as necessary. Treatment Data for 11/11/2020 started at:8:55 AM Dialyzer: 180NRe Optiflux Na: 138 mEq/L Bicarb: 30 mEq/L Dialysate: 2.0 K, 2.25 Ca, 1.0 Mg, 100 Dextrose (G2231) Dialysate/Machine Temp (prescribed): 37 C Dialysate/Machine Temp (actual): 37 C BFR (prescribed): 450 BFR (actual): 450 Prescribed time: 04:00 EDW: 108 kg Access Type: Active (In Use):AVFistula-Standard/Left Upper Arm Pre Dialysis Vitals (for 11/11/2020 8:50 AM ) Pre BP (sit): 166/77 Pre Wt: 114.7 kg Temp: 98.6 F Post Dialysis Vitals (for 11/09/2020 1:04 PM ) Post BP (sit): 124/58 Post Wt: 110.1 kg Current Dialysis Vitals (for 11/11/2020 9:32 AM ) BP (sit): 128/53 AP(-) / AUTOMATIC LATHE TENDER: 223/184 Pulse: 75 Chairside data as of 11/11/2020 9:32 AM Last 3 Treatments 11/09/2020 11/06/2020 11/04/2020 EDW (kg) 108 108 108 Weight Pre (kg) 114.6 113.7 114.8 Weight Post (kg) 110.1 109.4 109.8 Dialytic Weight Loss (kg) -4.5 -4.3 -5 EDW Deviation (kg) 2.1 1.4 1.8 BP Sit Pre 156/65 141/78 131/64 BP Sit Post 124/58 118/50 100/52 UF Rate (mL/kg/hr) 10 10 11 Prescribed BFR 450 450 450 Average Delivered BFR 450 480 450 Prescribed Treatment Time 04:00 04:00 04:00 Actual Treatment Time 04:01 04:01 04:03 Last 3 Values 11/06/2020 09/18/2020 08/21/2020 Access Flow > 2000 1138 1772 FIRE HAZARD INSPECTOR: Ernie Pompa MD LOCATION: [place] [phone] SCHEDULE: -W- 2nd Shift ACCESS: EDW: kg. DIALYZER: HD DURATION: NEEDLE SIZE: ANTICOAG: BATH: QB: ml/min QD: ml/min Subjective Tolerating dialysis well. 11/11/20: COntinues to have high fluid gains [...] ureteral ?tumor early next month in [place]. 06/10: Doing well overall, no new complaints, [...] Went to Urgent care -> ER in [place] yesterday,CT with R hydro but no obstructive [...] He had infiltration last week, dialyzed at [facility] on Sat and went well, [...] toe there is ulceration over prior callous area without erythema or drainage and large amount of surrounding callous tissue Medication List Medication Sig Start Date albuterol [...] and no changes were made. BUN mg/dL 45 (10/21/20) 44 (09/30/20) 52 [...] (09/30/20) 1.7800 (08/19/20) 1.8700 (07/22/20) 1.7800 (06/24/20) HEMOGLOBIN (G/DL) IN BLOOD g/dL 10.2 (11/04/20) 10.5 (10/28/20) 11.3 (10/21/20) 10.6 (10/14/20) 10.4 (10/07/20) PLATELETS 1000/mcL 180 (10/21/20) 180 (09/23/20) 147 (08/19/20) 152 (07/22/20) 153 (06/24/20) IRON SATURATION % 21 (10/21/20) 20 (09/23/20) 36 (08/19/20) 26 (07/22/20) 32 (06/24/20) FERRITIN ng/mL 1317 (09/23/20) 951 (06/24/20) 1040 (03/25/20) 912 (01/29/20) 732 (12/25/19) ALBUMIN (G/DL) g/dL 3.9 (10/21/20) 3.7 (09/23/20) 3.9 (08/19/20) Sodium mEq/L 135 (10/21/20) 134 (09/23/20) 138 (08/19/20) POTASSIUM (MMOL/L) IN SER/PLAS mEq/L 5.8 (10/21/20) 4.8 (09/23/20) 5.5 (08/19/20) BICARBONATE (CO2) mEq/L 23 (10/21/20) 23 (09/23/20) 23 (08/19/20) 25 OH VITAMIN D ng/mL 37.9 (09/23/20) 37.9 (03/25/20) 62.4 (09/18/19) BUN/CREATININE (MASS RATIO) IN SER/PLAS 6.5 (10/21/20) 7.7 (09/23/20) 8.6 (08/19/20) Calcium mg/dL 9.3 (10/21/20) 9.0 (09/23/20) 9.5 (08/19/20) Calcium Phos Product 54 (10/21/20) 50 (09/23/20) 48 (08/19/20) CALCIUM (MG/DL) CORRECTED FOR ALBUMIN IN SER/PLAS mg/dL 9.4 (10/21/20) 9.2 (09/23/20) 9.6 (08/19/20) PHOSPHATE (MG/DL) IN SER/PLAS mg/dL 5.8 (10/21/20) 5.5 (09/23/20) 5.1 (08/19/20) IPTH pg/mL 785 (10/21/20) 835 (09/23/20) 696 (08/19/20) Vascular Access Assessment: Type of access: [id number] Surgeon - Lary GARDNER Access working well Impression and Plan Continue HD without change in prescription Continue to work on limiting fluid gains, may need extra time on dialysis occasionally or extra treatment to get to dry weight Refer to podiatry Ernie Pompa MD [ Signed And locked electronically On 11/11/2020 at 09:42:47 AM ] Transcribed: Ernie Pompa ( 11/11/2020 ) documented in this encounter Plan of Treatment Not on filedocumented as of this encounter Visit Diagnoses Not on filedocumented in this encounter
--- OUTSIDE RECORDS SUMMARY | 2021-11-04 08:38 | XMS_ITS | Encounter Summary ---
:1945 Author Organization [facility] Address [address] [place] [address] Care Team Providers Name Role Phone Unavailable Primary Care Provider Unavailable Encounter Details Date Type Department Care Team Description 12/16/2020 Orders Only [facility] f Ernie Guzmán MD [address] [place] [address] [place], [place] [phone] (Wo rk) Social History Tobacco Use [...] 12/17/2020 Unless otherwise specified, test(s) performed at: [facility], [address] [place] [address] PROFESSOR OF EXERCISE SCIENCE: Alec Payan M.D. For any questions, please call customer service at FREQUENCY:OTHER Resulting Agency Comment Specimen source: Blood Ernie Pompa MD LAB BLOOD ORDERABLES Performing Organization Address City/State/ZIP Code Phon e Number [facility] documented in this encounter Visit Diagnoses Not on filedocumented in this encounter
--- OUTSIDE RECORDS SUMMARY | 2021-11-04 08:38 | XMS_ITS | Encounter Summary ---
:1945 Author Organization [facility] Address [address] [place] [address] Care Team Providers Name Role Phone Unavailable Primary Care Provider Unavailable Encounter Details Date Type Department Care Team Description 11/18/2020 Orders Only [facility] f Ernie Guzmán MD [address] [place] [address] [place], [place] [phone] (Wo rk) Social History Tobacco Use [...] ORDERABLES Performing Organization Address City/[facility]/ZIP Code Phon e Number [facility] POST CHEMISTRY (11/18/2020) athologist Signature BUN Post 11 6 - 19 [facility] Dialysis mg/dL [facility] Specimen (Source) Anatomical Collection Method Collection Time Re ceived Time Location / / Volume Laterality 11/18/2020 11/19/2020 6:04 PM CDT Narrative [facility] - 11/19/2020 Unless otherwise specified, test(s) performed at: [facility], [address] [place] [address] IT SECURITY MANAGER: Alec Payan M.D. For any questions, please call customer service at FREQUENCY:MONTHLY Resulting Agency Comment Specimen source: Plasma Ernie Pompa MD LAB BLOOD ORDERABLES Performing Organization Address City/[facility] Code Phon e Number [facility] IMMUNO CHEMISTRY (11/18/2020) P athologist Signature Hep B Surface Negative Negative [facility] Ag [facility] Specimen (Source) Anatomical Collection Method Collection Time Re ceived Time Location / / Volume Laterality 11/18/2020 11/19/2020 3:22 PM CDT Narrative [facility] - 11/19/2020 Unless otherwise specified, test(s) performed at: [facility], [address] [place] [address] IT SECURITY MANAGER: Alec Payan M.D. For any questions, [...] 11/19/2020 Unless otherwise specified, test(s) performed at: [facility], [address] [place] [address] IT SECURITY MANAGER: Alec Payan M.D. For any questions, please call customer service at FREQUENCY:MONTHLY Resulting Agency Comment Specimen source: Blood Ernie Pompa MD LAB BLOOD ORDERABLES Performing Organization Address City/State/[facility] Code Phon e Number [facility] SPECTRA [facility] (ABNORMAL) Spectrae Chemistry (11/18/2020) P athologist Signature PTH 969 (H) 16 - 80 [facility] pg/mL [facility] Specimen (Source) Anatomical Collection Method Collection Time Re ceived Time Location / / Volume Laterality 11/18/2020 11/19/2020 5:01 PM CDT Narrative [facility]PS [facility] - 11/19/2020 Unless otherwise specified, test(s) performed at: [facility], [address] [place] [address] IT SECURITY MANAGER: Alec Payan M.D. For any questions, please call customer service at FREQUENCY:MONTHLY Resulting Agency Comment Specimen source: Plasma Ernie Pompa MD LAB BLOOD ORDERABLES Performing Organization Address City/State/ZIP Code Phon e Number [facility]PS S[facility]RA [facility] (ABNORMAL) Spectrae Chemistry (11/18/2020) [employer] gist Method Time Signature BUN 51 (H) [...] 11/19/2020 Unless otherwise specified, test(s) performed at: [facility], [address] [place] [address] IT SECURITY MANAGER: Alec Payan M.D. For any questions, please call customer service at FREQUENCY:MONTHLY Resulting Agency Comment Specimen source: Serum Ernie Pompa MD LAB BLOOD ORDERABLES Performing Organization Address City/State/ZIP Code Phon e Number [facility] documented in this encounter Visit Diagnoses Not on filedocumented in this encounter
--- OUTSIDE RECORDS SUMMARY | 2021-11-04 08:38 | XMS_ITS | Encounter Summary ---
:1945 Author Organization [facility] Address [address] [place] [address] Care Team Providers Name Role Phone Unavailable Primary Care Provider Unavailable Encounter Details Date Type Department Care Team Description 12/30/2020 Treatment [facility] Ernie Gómez MD [address] [place] [address] [place], [place] [phone] [phone] (Wo rk) Social History Tobacco Use Types Packs/Day Years Used Date Smoking Tobacco: Unknown Comments: Smoking History Info:Patient n ot screened Sex Assigned at Date Recorded Not on file documented as of this encounter Miscellaneous Notes Dialysis Note - Ernie Pompa MD - 12/30/2020 11:49 AM CDT Date: Dec 30, 2020 Patient Name: Shaun Ocampo : 1945 Chart #: [id number] Sex: M This patient was personally seen [...] AM ) BP (sit): 117/57 AP(-) / LIFE SUPPORT TECHNICIAN: 240/207 Pulse: 75 Chairside data as [...] 2.0 mcg ORAL Every Treatment 12/30/2020 12/29/2021 GLASSBLOWER: Ernie Pompa MD LOCATION: [facility] [phone] SCHEDULE: -- 2nd Shift EDW: kg. 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 06/10: Doing well overall, no new complaints, [...] Went to Urgent care -> ER in [place] yesterday,CT with R hydro but no obstructive [...] He had infiltration last week, dialyzed at [facility] on Sat and went well, access ok [...] prescription. Vascular Access Assessment Type of access: [id number]/[email or web address] Surgeon Annita GARDNER Access working well Anemia [...] at goal. Intact PTH is at goal. Siding Applicator will adjust binders and vitamin D per [...]
--- OUTSIDE RECORDS SUMMARY | 2021-11-04 08:38 | XMS_ITS | Encounter Summary ---
:1945 Author Organization [facility] Address [address] [place] [address] Care Team Providers Name Role Phone Unavailable Primary Care Provider Unavailable Encounter Details Date Type Department Care Team Description 07/22/2020 Orders Only [facility] f Ernie Guzmán MD [address] [place] [address] [place], [place] [phone] (Wo rk) Social History Tobacco Use [...] 07/24/2020 Unless otherwise specified, test(s) performed at: [facility], [address] [place] [address] FASHION STYLING INTERN: Alec Payan M.D. For any questions, please call customer service at FREQUENCY:MONTHLY Resulting Agency Comment Specimen source: Plasma Ernie Pompa MD LAB BLOOD ORDERABLES Performing Organization Address City/[facility] Phon e Number [facility]PS SPECTRA [facility] IMMUNO CHEMISTRY (07/22/2020) P athologist Signature Hep B Surface Negative Negative [facility]PS SPECT[facility] Ag [facility] Specimen (Source) Anatomical Collection Method Collection Time Re ceived Time Location / / Volume Laterality 07/22/2020 07/23/2020 4:57 PM CDT Narrative [facility]PS S[facility] - 07/23/2020 Unless otherwise specified, test(s) performed at: [facility], [address] [place] [address] FASHION STYLING INTERN: Alec Payan M.D. For any questions, please call customer service at FREQUENCY:MONTHLY Resulting Agency Comment Specimen source: Serum Ernie Pompa MD LAB BLOOD ORDERABLES Performing Organization Address City/State/ZIP Code Phon e Number [facility]PS SPECTRA [facility] (ABNORMAL) Spectrae Chemistry (07/22/2020) [facility] Method Time Signature BUN 58 (H) 6 [...] 07/23/2020 Unless otherwise specified, test(s) performed at: [facility], [address] [place], [place] [id number] FASHION STYLING INTERN: Alec Payan M.D. For any questions, please call customer service at FREQUENCY:MONTHLY Resulting Agency Comment Specimen source: Serum Ernie Pompa MD LAB BLOOD ORDERABLES Performing Organization Address City/[facility] Phon e Number APS SPECTRA [facility] [...] Organization Address City/[facility] Code Phon e Number [...] 07/23/2020 Unless otherwise specified, test(s) performed at: [facility], [address] [place] [address] FASHION STYLING INTERN: Alec Payan M.D. For any questions, please call customer service at FREQUENCY:MONTHLY Resulting Agency Comment Specimen source: Blood Ernie Pompa MD LAB BLOOD ORDERABLES Performing Organization Address City/State/ZIP Code Phon e Number [facility] documented in this encounter Visit Diagnoses Not on filedocumented in this encounter
--- OUTSIDE RECORDS SUMMARY | 2021-11-04 08:38 | XMS_ITS | Encounter Summary ---
:1945 Author Organization [facility] Address [address] [place] [address] Care Team Providers Name Role Phone Unavailable Primary Care Provider Unavailable Encounter Details Date Type Department Care Team Description 09/16/2020 Orders Only [facility] O f Ernie Guzmán MD [address] [place] [address] [place], [place] [phone] (Wo rk) Social History Tobacco Use Types Packs/Day Years Used Date Smoking Tobacco: Unknown Comments: Smoking History Info:Patient n ot screened Sex Assigned at Date Recorded Not on file documented as of this encounter Plan of Treatment Not on filedocumented as of this encounter Procedures Procedure Name Priority Date/Time Associated Diagnosis Comme nts HEMATOLOGY Routine 09/16/2020 Results for thi s procedure are in the resu lts section. documented in this encounter Results (ABNORMAL) HEMATOLOGY (09/16/2020) Analysis Performed At Patho logist Time Signature Hemoglobin 9.6 (L) 14.0 - [facility]PS [facility] 18.0 g/dL [facility] Hemoglobin x 3 28.8 (L) 42.0 - [facility] 54.0 % [facility] Specimen (Source) Anatomical Collection Method Collection Time Re ceived Time Location / / Volume Laterality 09/16/2020 09/17/2020 10:3 1 AM CDT Narrative [facility]PS [facility]PECTRA [facility] - 09/17/2020 Unless otherwise specified, test(s) performed at: [facility], [address] [place] [address] TRIM OPERATOR: Alec Payan M.D. For any questions, please call customer service at FREQUENCY:OTHER Resulting Agency Comment Specimen source: Blood Ernie Pompa MD LAB BLOOD ORDERABLES Performing Organization Address City/State/ZIP Code Phon e Number [facility] documented in this encounter Visit Diagnoses Not on filedocumented in this encounter
--- OUTSIDE RECORDS SUMMARY | 2021-11-04 08:38 | XMS_ITS | Encounter Summary ---
:1945 Author Organization [facility] Address [address] [place] [address] Care Team Providers Name Role Phone Unavailable Primary Care Provider Unavailable Encounter Details Date Type Department Care Team Description 09/23/2020 Treatment [facility] f Ernie Guzmán MD [address] [place] [address] [place], [place] [phone] (Wo rk) Social History Tobacco Use Types Packs/Day Years Used Date Smoking Tobacco: Unknown Comments: Smoking History Info:Patient n ot screened Sex Assigned at Date Recorded Not on file documented as of this encounter Miscellaneous Notes Dialysis Note - Ernie Pompa MD - 09/23/2020 10:44 AM CDT Date: Sep 23, 2020 Patient Name: Shaun Ocampo : 1945 Chart #: [id number] Sex: M This patient was personally seen [...] AM ) BP (sit): 103/52 AP(-) / ROLL CARRIER: 235/188 Pulse: 72 Chairside data as of [...] Every 2 weeks During Dialysis 09/16/2020 09/15/2021 IT ARCHITECTURE CONSULTANT: Ernie Pompa MD LOCATION: [phone] SCHEDULE: Aravind-- 2nd Shift EDW: kg. DIALYZER: [...] for ureteral ?tumor early next month in [place]. 06/10: Doing well overall, no new complaints, [...] Went to Urgent care -> ER in [place] yesterday,CT with R hydro but no obstructive [...] prescription. Vascular Access Assessment Type of access: [id number]/2019 Surgeon - Lary GARDNER Access working well [...] at goal. Intact PTH is above goal. Public Safety Teacher will adjust binders and vitamin D per [...]
--- OUTSIDE RECORDS SUMMARY | 2021-11-04 08:38 | XMS_ITS | Encounter Summary ---
:1945 Author Organization [facility] Address [address] [place] [address] Care Team Providers Name Role Phone Unavailable Primary Care Provider Unavailable Encounter Details Date Type Department Care Team Description 10/07/2020 Orders Only [facility] O f Ernie Guzmán MD [address] [place] [address] [place], [place] [phone] (Wo rk) Social History Tobacco Use [...] 10/09/2020 Unless otherwise specified, test(s) performed at: [facility], [address] [place] [address] SOFTWARE DESIGNER: Alec Payan M.D. For any questions, please call customer service at FREQUENCY:OTHER Resulting Agency Comment Specimen source: Blood Ernie Pompa MD LAB BLOOD ORDERABLES Performing Organization Address City/State/ZIP Code Phon e Number [facility] S[facility]RA [facility] documented in this encounter Visit Diagnoses Not on filedocumented in this encounter
--- OUTSIDE RECORDS SUMMARY | 2021-11-04 08:38 | XMS_ITS | Encounter Summary ---
:1945 Author Organization [facility] Address [address] [place] [address] Care Team Providers Name Role Phone Unavailable Primary Care Provider Unavailable Encounter Details Date Type Department Care Team Description 08/26/2020 Orders Only [facility] f Ernie Guzmán MD [address] [place] [address] [place], [place] [phone] (Wo rk) Social History Tobacco Use [...] 08/27/2020 Unless otherwise specified, test(s) performed at: [facility], [address] [place] [address] GASOLINE TRUCK CRANE OPERATOR: Alec Payan M.D. For any questions, please call customer service at FREQUENCY:OTHER Resulting Agency Comment Specimen source: Blood Ernie Pompa MD LAB BLOOD ORDERABLES Performing Organization Address City/State/ZIP Code Phon e Number [facility]PS SPECTRA [facility] documented in this encounter Visit Diagnoses Not on filedocumented in this encounter
--- OUTSIDE RECORDS SUMMARY | 2021-11-04 08:38 | XMS_ITS | Encounter Summary ---
:1945 Author Organization [facility] Address [address] [place] [address] Care Team Providers Name Role Phone Unavailable Primary Care Provider Unavailable Encounter Details Date Type Department Care Team Description 10/14/2020 Orders [facility] f Ernie Guzmán MD [address] [place] [address] [place], [place] [phone] (Wo rk) Social History Tobacco Use [...] 10/15/2020 Unless otherwise specified, test(s) performed at: [facility], [address] [place] [address] BUTTON RECLAIMER: Alec Payan M.D. For any questions, please call customer service at FREQUENCY:OTHER Resulting Agency Comment Specimen source: Blood Ernie Pompa MD LAB BLOOD ORDERABLES Performing Organization Address City/State/ZIP Code Phon e Number [facility]PS SPECTRA [facility] documented in this encounter Visit Diagnoses Not on filedocumented in this encounter
--- OUTSIDE RECORDS SUMMARY | 2021-11-04 08:38 | XMS_ITS | Encounter Summary ---
:1945 Author Organization [facility] Address [address] [place] [address] Care Team Providers Name Role Phone Unavailable Primary Care Provider Unavailable Encounter Details Date Type Department Care Team Description 11/04/2020 Orders Only [facility] O f Ernie Guzmán MD [address] [place] [address] [place], [place] [phone] (Wo rk) Social History Tobacco Use [...] 11/05/2020 Unless otherwise specified, test(s) performed at: [facility], [address] [place] [address] MANAGER OF TRANSPORTATION: Alec Payan M.D. For any questions, please call customer service at FREQUENCY:OTHER Resulting Agency Comment Specimen source: Blood Ernie Pompa MD LAB BLOOD ORDERABLES Performing Organization Address City/State/ZIP Code Phon e Number [facility]PS SPECTRA [facility] documented in this encounter Visit Diagnoses Not on filedocumented in this encounter
--- OUTSIDE RECORDS SUMMARY | 2021-11-04 08:39 | XMS_ITS | Encounter Summary ---
:1945 Author Organization [facility] Address [address] [place] [address] Care Team Providers Name Role Phone Unavailable Primary Care Provider Unavailable Encounter Details Date Type Department Care Team Description 07/01/2020 Treatment [facility] f Ernie Guzmán MD [address] [place] [address] [place], [place] [phone] (Wo rk) Social History Tobacco Use Types Packs/Day Years Used Date Smoking Tobacco: Unknown Comments: Smoking History Info:Patient n ot screened Sex Assigned at Date Recorded Not on file documented as of this encounter Miscellaneous Notes Dialysis Note - Ernie Pompa MD - 07/01/2020 11:18 AM CDT Date: Jul 01, 2020 Patient Name: Shaun Ocampo : 1945 Chart #: [id number] Sex: M This patient was personally seen [...] AM ) BP (sit): 115/74 AP(-) / LINUX CONSULTANT: 251/198 Pulse: 66 Chairside data as of [...] Every 2 weeks During Dialysis 06/24/2020 06/23/2021 IT APPLICATION ADMINISTRATOR: Ernie Pompa MD LOCATION: [phone] SCHEDULE: M-W-F 2nd Shift EDW: kg. DIALYZER: HD DURATION: NEEDLE SIZE: ANTICOAG: BATH: QB: ml/min QD: ml/min Subjective Tolerating dialysis well. 07/01: Doing well, feels great. Big problem is fluid gains, discussed in great detail again today. 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 06/10: Doing well overall, no new complaints, [...] Went to Urgent care -> ER in [place] yesterday,CT with R hydro but no obstructive [...] had infiltration last week, dialyzed at [facility] on Sat and went well, [...] prescription. Vascular Access Assessment Type of access: [id number]/2019 Surgeon - Lary KUMARW Access working well [...] at goal. Intact PTH is above goal. Lyft Driver will adjust binders and vitamin D per [...] on dialysis. Schedule UF run extra at [place] when available. Hold Hep day before and [...]
--- OUTSIDE RECORDS SUMMARY | 2021-11-04 08:39 | XMS_ITS | Encounter Summary ---
:1945 Author Organization [facility] Address [address] [place] [address] Care Team Providers Name Role Phone Unavailable Primary Care Provider Unavailable Encounter Details Date Type Department Care Team Description 05/27/2020 Orders [facility] O f Ernie Guzmán MD [address] [place] [address] [place], [place] [phone] (Wo rk) Social History Tobacco Use Types Packs/Day Years Used Date Smoking Tobacco: Unknown Comments: Smoking History Info:Patient n ot screened Sex Assigned at Date Recorded Not on file documented as of this encounter Plan of Treatment Not on filedocumented as of this encounter Procedures Procedure Name Priority Date/Time Associated Diagnosis Comme nts HEMATOLOGY Routine 05/27/2020 Results for thi s procedure are in the resu lts section. documented in this encounter Results (ABNORMAL) HEMATOLOGY (05/27/2020) Analysis Performed At Patho logist Time Signature Hemoglobin 10.0 (L) 14.0 - [facility] 18.0 g/dL [facility] Hemoglobin x 3 30.0 (L) 42.0 - [facility] 54.0 % [facility] Specimen (Source) Anatomical Collection Method Collection Time Re ceived Time Location / / Volume Laterality 05/27/2020 05/28/2020 6:29 PM DATA CONVERSION OPERATOR Narrative [facility] - 05/28/2020 Unless otherwise specified, test(s) performed at: [facility], [address] [place] [address] [employer] TEACHER: Alec Payan M.D. For any questions, please call customer service at FREQUENCY:OTHER Resulting Agency Comment Specimen source: Blood Ernie Pompa MD LAB BLOOD ORDERABLES Performing Organization Address City/State/ZIP Code Phon e Number [facility] documented in this encounter Visit Diagnoses Not on filedocumented in this encounter
--- OUTSIDE RECORDS SUMMARY | 2021-11-04 08:39 | XMS_ITS | Encounter Summary ---
:1945 Author Organization [facility] Address [address] [place] [address] Care Team Providers Name Role Phone Unavailable Primary Care Provider Unavailable Encounter Details Date Type Department Care Team Description 06/03/2020 Orders [facility] O f Ernie Guzmán MD [phone] [place] [address] [place], [place] [phone] (Wo rk) Social History Tobacco Use [...] 06/04/2020 Unless otherwise specified, test(s) performed at: [facility], [address] [place] [address] RESEARCHER: Alec Payan M.D. For any questions, please call customer service at FREQUENCY:OTHER Resulting Agency Comment Specimen source: Blood Ernie Pompa MD LAB BLOOD ORDERABLES Performing Organization Address City/State/ZIP Code Phon e Number [facility] documented in this encounter Visit Diagnoses Not on filedocumented in this encounter
--- OUTSIDE RECORDS SUMMARY | 2021-11-04 08:39 | XMS_ITS | Encounter Summary ---
:1945 Author Organization [facility] Address [address] [place] [address] Care Team Providers Name Role Phone Unavailable Primary Care Provider Unavailable Encounter Details Date Type Department Care Team Description 05/06/2020 Treatment [facility] f Ernie Guzmán MD [address] [place] [address] [place], [place] [phone] [phone] (Wo rk) Social History Tobacco Use Types Packs/Day Years Used Date Smoking Tobacco: Unknown Comments: Smoking History Info:Patient n ot screened Sex Assigned at Date Recorded Not on file documented as of this encounter Miscellaneous Notes Dialysis Note - Ernie Pompa MD - 05/06/2020 11:40 AM CST Date: May 06, 2020 Patient Name: Shaun Ocampo : 1945 Chart #: [id number] Sex: M This patient was personally seen [...] AM ) BP (sit): 108/52 AP(-) / BATCHER OPERATOR: 261/214 Pulse: 89 Chairside data as of [...] Every 4 weeks During Dialysis 04/15/2020 04/14/2021 EXPERIENCE DESIGNER: Ernie Pompa MD LOCATION: [phone] SCHEDULE: 2nd Shift ACCESS: EDW: kg. DIALYZER: HD DURATION: NEEDLE SIZE: ANTICOAG: BATH: QB: ml/min QD: ml/min Subjective Tolerating dialysis well. Reports no trouble with access. 05/06: HD going well outside high fluid gains that continue. However, acute abd/groin pain on Monday and came off early. Had gross hematuria Monday. Went to Urgent care -> ER in [place] yesterday,CT with R hydro but no obstructive [...] He had infiltration last week, dialyzed at [facility] on Sat and went well, access ok [...] (12/25/19) Vascular Access Assessment: Type of access: [id number]/2019 Surgeon - Lary GARDNER Access working well Impression and Plan No changes, stable dialysis He will monitor sx and ensure gross hematuria resolves and pain resolving over next 48hrs [facility], get him in for visit, [...]
--- OUTSIDE RECORDS SUMMARY | 2021-11-04 08:39 | XMS_ITS | Encounter Summary ---
:1945 Author Organization [facility] Address [address] [place] [address] Care Team Providers Name Role Phone Unavailable Primary Care Provider Unavailable Encounter Details Date Type Department Care Team Description 06/24/2020 Orders [facility] O f Ernie Guzmán MD [address] [place] [address] [place], [place] [phone] (Wo rk) Social History Tobacco Use [...] Results (06/24/2020) P athologist Signature spKt/V 1.78 KAMERON (Daugirdas II) eKt/V 1.55 KAMERON (Tattersall) nPCR_HD [...] 06/26/2020 Unless otherwise specified, test(s) performed at: [facility], [address] [place] [address] BOW MAKING MACHINE OPERATOR: Alec Payan M.D. For any questions, please call customer service at FREQUENCY:MONTHLY Resulting Agency Comment Specimen source: Plasma Ernie Pompa MD LAB BLOOD ORDERABLES Performing Organization Address City/[facility]/ZIP [facility] Phon e Number [facility] HD [...] 06/25/2020 Unless otherwise specified, test(s) performed at: [facility], [address] [place], [place] [id number] BOW MAKING MACHINE OPERATOR: Alec Payan M.D. For any questions, please call customer service at FREQUENCY:MONTHLY Resulting Agency Comment Specimen source: Plasma Ernie Pompa MD LAB BLOOD ORDERABLES Performing Organization Address City/[facility] Phon e Number APS SPECTRA [...] 06/26/2020 Unless otherwise specified, test(s) performed at: [facility], [address] [place] [address] BOW MAKING MACHINE OPERATOR: Alec Payan M.D. For any questions, please call customer service at FREQUENCY:MONTHLY Resulting Agency Comment Specimen source: Blood Ernie Pompa MD LAB BLOOD ORDERABLES Performing Organization Address City/[facility] Phon e Number APS SPECTRA [...] [facility] (ABNORMAL) Spectrae Chemistry (06/24/2020) [facility] Method Time Signature Ferritin 951 (H) [...] 06/25/2020 Unless otherwise specified, test(s) performed at: [facility], [address] [place] [address] BOW MAKING MACHINE OPERATOR: Alec Payan M.D. For any questions, please call customer service at FREQUENCY:MONTHLY Resulting Agency Comment Specimen source: Serum Ernie Pompa MD LAB BLOOD ORDERABLES Performing Organization Address City/State/ZIP Code Phon e Number [facility] documented in this encounter Visit Diagnoses Not on filedocumented in this encounter
--- OUTSIDE RECORDS SUMMARY | 2021-11-04 08:39 | XMS_ITS | Encounter Summary ---
:1945 Author Organization [facility] Address [address] [place] [address] Care Team Providers Name Role Phone Unavailable Primary Care Provider Unavailable Encounter Details Date Type Department Care Team Description 05/27/2020 Treatment [facility] O Ernie Gómez MD [address] [place] [address] [place], [place] [phone] (Wo rk) Social History Tobacco Use Types Packs/Day Years Used Date Smoking Tobacco: Unknown Comments: Smoking History Info:Patient n ot screened Sex Assigned at Date Recorded Not on file documented as of this encounter Miscellaneous Notes Dialysis Note - Ernie Pompa MD - 05/27/2020 12:29 PM CST Date: May 27, 2020 Patient Name: Shaun Ocampo : 1945 Chart #: [id number] Sex: M This patient was personally seen [...] AM ) BP (sit): 122/55 AP(-) / ROSE GRADER: 234/221 Pulse: 72 Chairside data as of [...] Every 4 weeks During Dialysis 04/15/2020 04/14/2021 ACID SPLICER: Ernie Pompa MD LOCATION: [phone] SCHEDULE: M-W-F 2nd Shift EDW: kg. DIALYZER: [...] Went to Urgent care -> ER in [place] yesterday,CT with R hydro but no obstructive [...] prescription. Vascular Access Assessment Type of access: [id number]/2019 Surgeon - Lary GARDNER Access working well [...] above goal. Intact PTH is above goal. Hot End Operator will adjust binders and vitamin D [...]
--- OUTSIDE RECORDS SUMMARY | 2021-11-04 08:39 | XMS_ITS | Encounter Summary ---
:1945 Author Organization [facility] Address [address] [place] [address] Care Team Providers Name Role Phone Unavailable Primary Care Provider Unavailable Encounter Details Date Type Department Care Team Description 07/15/2020 Orders Only [facility] O f Ernie Guzmán MD [address] [place] [address] [place], [place] [phone] (Wo rk) Social History Tobacco Use Types Packs/Day Years Used Date Smoking Tobacco: Unknown Comments: Smoking History Info:Patient n ot screened Sex Assigned at Date Recorded Not on file documented as of this encounter Plan of Treatment Not on filedocumented as of this encounter Procedures Procedure Name Priority Date/Time Associated Diagnosis Comme nts HEMATOLOGY Routine 07/15/2020 Results for thi s procedure are in the resu lts section. documented in this encounter Results (ABNORMAL) HEMATOLOGY (07/15/2020) Analysis Performed At Patho logist Time Signature Hemoglobin 10.2 (L) 14.0 - [facility] 18.0 g/dL [facility] Hemoglobin x 3 30.6 (L) 42.0 - [facility] 54.0 % [facility] Specimen (Source) Anatomical Collection Method Collection Time Re ceived Time Location / / Volume Laterality 07/15/2020 07/16/2020 11:3 6 AM CDT Narrative [facility] - 07/16/2020 Unless otherwise specified, test(s) performed at: [facility], [address] [place] [address] STORE CUSTODIAN: Alec Payan M.D. For any questions, please call customer service at FREQUENCY:OTHER Resulting Agency Comment Specimen source: Blood Ernie Pompa MD LAB BLOOD ORDERABLES Performing Organization Address City/State/ZIP Code Phon e Number [facility] documented in this encounter Visit Diagnoses Not on filedocumented in this encounter
--- OUTSIDE RECORDS SUMMARY | 2021-11-04 08:39 | XMS_ITS | Encounter Summary ---
:1945 Author Organization [facility] Address [address] [place] [address] Care Team Providers Name Role Phone Unavailable Primary Care Provider Unavailable Encounter Details Date Type Department Care Team Description 05/20/2020 Orders [facility] O f Ernie Guzmán MD [address] [place] [address] [place], [place] [phone] (Wo rk) Social History Tobacco Use [...] Volume Laterality 05/20/2020 05/21/2020 10:4 9 PM CAR BRACER Resulting Agency Comment Specimen source: Plasma Ernie Pompa MD LAB BLOOD ORDERABLES Performing Organization Address City/[facility]/ZIP Code Phon e Number [facility] POST CHEMISTRY (05/20/2020) athologist Signature BUN Post 12 6 - 19 [facility] Dialysis mg/dL [facility] Specimen (Source) Anatomical Collection Method Collection Time Re ceived Time Location / / Volume Laterality 05/20/2020 05/21/2020 10:4 8 PM CAR BRACER Narrative [facility] - 05/22/2020 Unless otherwise specified, test(s) performed at: [facility], [address] [place] [address] RADIATION ONCOLOGIST: Alec Payan M.D. For any questions, please [...] / Volume Laterality 05/20/2020 05/21/2020 6:17 PM CAR BRACER Narrative [facility] - 05/22/2020 Unless otherwise specified, test(s) performed at: [facility], [address] [place] [address] RADIATION ONCOLOGIST: Alec Payan M.D. For any questions, please [...] / Volume Laterality 05/20/2020 05/21/2020 4:04 PM CAR BRACER Narrative [facility] - 05/22/2020 Unless otherwise specified, test(s) performed at: [place] [address] RADIATION ONCOLOGIST: Alec Payan M.D. For any questions, please [...] / Volume Laterality 05/20/2020 05/21/2020 4:04 PM CAR BRACER Narrative [facility] - 05/22/2020 Unless otherwise specified, test(s) performed at: [facility], [address] [place] [address] RADIATION ONCOLOGIST: Alec Payan M.D. For any questions, please call customer service at FREQUENCY:MONTHLY Resulting Agency Comment Specimen source: Blood Ernie Pompa MD LAB BLOOD ORDERABLES Performing Organization Address City/State/ZIP Code Phon e Number [facility]PS [facility] (ABNORMAL) Spectrae Chemistry (05/20/2020) [facility] gist Method Time Signature BUN 56 [...] / Volume Laterality 05/20/2020 05/21/2020 6:17 PM CAR BRACER Narrative [facility] - 05/21/2020 Unless otherwise specified, test(s) performed at: [facility], [address] [place] [address] RADIATION ONCOLOGIST: Alec Payan M.D. For any questions, please call customer service at FREQUENCY:MONTHLY Resulting Agency Comment Specimen source: Serum Ernie Pompa MD LAB BLOOD ORDERABLES Performing Organization Address City/State/ZIP Code Phon e Number [facility] documented in this encounter Visit Diagnoses Not on filedocumented in this encounter
--- OUTSIDE RECORDS SUMMARY | 2021-11-04 08:39 | XMS_ITS | Encounter Summary ---
:1945 Author Organization [facility] Address [address] [place] [address] Care Team Providers Name Role Phone Unavailable Primary Care Provider Unavailable Encounter Details Date Type Department Care Team Description 04/29/2020 Orders Only [facility] O f Ernie Guzmán MD [address] [place] [address] [place], [place] [phone] (Wo rk) Social History Tobacco Use [...] / Volume Laterality 04/29/2020 05/01/2020 2:20 PM ROCK CLIMBING TEAM MEMBER Narrative [facility] - 05/01/2020 Unless otherwise specified, test(s) performed at: [facility], [address] [place] [address] AUTOMOBILES SALESPERSON: Alec Payan M.D. For any questions, please call customer service at FREQUENCY:OTHER Resulting Agency Comment Specimen source: Blood Ernie Pompa MD LAB BLOOD ORDERABLES Performing Organization Address City/State/ZIP Code Phon e Number [facility] documented in this encounter Visit Diagnoses Not on filedocumented in this encounter
--- OUTSIDE RECORDS SUMMARY | 2021-11-04 08:39 | XMS_ITS | Encounter Summary ---
:1945 Author Organization [facility] Address [address] [place] [address] Care Team Providers Name Role Phone Unavailable Primary Care Provider Unavailable Encounter Details Date Type Department Care Team Description 07/22/2020 Treatment [facility] f Ernie Guzmán MD [address] [place] [address] [place], [place] [phone] [phone] (Wo rk) Social History Tobacco Use Types Packs/Day Years Used Date Smoking Tobacco: Unknown Comments: Smoking History Info:Patient n ot screened Sex Assigned at Date Recorded Not on file documented as of this encounter Miscellaneous Notes Dialysis Note - Ernie Pompa MD - 07/22/2020 10:25 AM CDT Date: July 22, 2020 Patient Name: Shaun Ocampo : 1945 Chart #: [id number] Sex: M This patient was personally seen [...] AM ) BP (sit): 139/55 AP(-) / RESIDENT SERVICES MANAGER: 262/224 Pulse: 69 Chairside data as of [...] Every 4 weeks During Dialysis 07/08/2020 07/07/2021 FARM OPERATOR: Ernie Pompa MD LOCATION: [phone] SCHEDULE: M-W-F 2nd Shift EDW: kg. 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 06/10: Doing well overall, no new complaints, [...] Went to Urgent care -> ER in [place] yesterday,CT with R hydro but no obstructive [...] He had infiltration last week, dialyzed at [facility] on Sat and went well, access ok [...] prescription. Vascular Access Assessment Type of access: [id number]/2019 Surgeon - Lary KUMARW Access working well [...] at goal. Intact PTH is above goal. Filler Spreader will adjust binders and vitamin D per [...]
--- OUTSIDE RECORDS SUMMARY | 2021-11-04 08:39 | XMS_ITS | Encounter Summary ---
:1945 Author Organization [facility] Address [address] [place] [address] Care Team Providers Name Role Phone Unavailable Primary Care Provider Unavailable Encounter Details Date Type Department Care Team Description 07/08/2020 Orders [facility] O f Ernie Guzmán MD [address] [place] [address] [place], [place] [phone] (Wo rk) Social History Tobacco Use [...] 07/09/2020 Unless otherwise specified, test(s) performed at: [facility], [address] [place] [address] SAFETY INTERN: Alec Payan M.D. For any questions, please call customer service at FREQUENCY:OTHER Resulting Agency Comment Specimen source: Blood Ernie Pompa MD LAB BLOOD ORDERABLES Performing Organization Address City/State/ZIP Code Phon e Number [facility] documented in this encounter Visit Diagnoses Not on filedocumented in this encounter
--- OUTSIDE RECORDS SUMMARY | 2021-11-04 08:39 | XMS_ITS | Encounter Summary ---
:1945 Author Organization [facility] Address [address] [place] [address] Care Team Providers Name Role Phone Unavailable Primary Care Provider Unavailable Encounter Details Date Type Department Care Team Description 05/13/2020 Orders [facility] O f Ernie Guzmán MD [address] [place] [address] [place], [place] [phone] (Wo rk) Social History Tobacco Use [...] / Volume Laterality 05/13/2020 05/14/2020 3:41 PM ELECTRICAL CONTROLS TECHNICIAN Narrative [facility]PS [facility] - 05/14/2020 Unless otherwise specified, test(s) performed at: [facility], [address] [place] [address] ASSOCIATE PROFESSOR OF ANTHROPOLOGY: Alec Payan M.D. For any questions, please call customer service at FREQUENCY:OTHER Resulting Agency Comment Specimen source: Blood Ernie Pompa MD LAB BLOOD ORDERABLES Performing Organization Address City/State/ZIP Code Phon e Number [facility] documented in this encounter Visit Diagnoses Not on filedocumented in this encounter
--- OUTSIDE RECORDS SUMMARY | 2021-11-04 08:39 | XMS_ITS | Encounter Summary ---
:1945 Author Organization [facility] Address [address] [place] [address] Care Team Providers Name Role Phone Unavailable Primary Care Provider Unavailable Encounter Details Date Type Department Care Team Description 07/08/2020 Treatment [facility] O Ernie Gómez MD [address] [place] [address] [place], [place] [phone] [phone] (Wo rk) Social History Tobacco Use Types Packs/Day Years Used Date Smoking Tobacco: Unknown Comments: Smoking History Info:Patient n ot screened Sex Assigned at Date Recorded Not on file documented as of this encounter Miscellaneous Notes Dialysis Note - Ernie Pompa MD - 07/08/2020 9:33 AM CDT Date: Jul 08, 2020 Patient Name: Shaun Ocampo : 1945 Chart #: [id number] Sex: M This patient was personally seen [...] Flow > 1999 > 1999 > 1999 FIELD SALES CONSULTANT: Ernie Pompa MD LOCATION: [place] [phone] SCHEDULE: 2nd Shift ACCESS: EDW: kg. 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 06/10: Doing well overall, no new complaints, [...] Went to Urgent care -> ER in [place] yesterday,CT with R hydro but no obstructive [...] (04/22/20) Vascular Access Assessment: Type of access: [id number]/2019 Surgeon - Lary GARDNER Access working well [...]
--- OUTSIDE RECORDS SUMMARY | 2021-11-04 08:39 | XMS_ITS | Encounter Summary ---
:1945 Author Organization [facility] Address [address] [place] [address] Care Team Providers Name Role Phone Unavailable Primary Care Provider Unavailable Encounter Details Date Type Department Care Team Description 06/10/2020 Treatment [facility] Ernie Gómez MD [address] [place] [address] [place], [place] [phone] (Wo rk) Social History Tobacco Use Types Packs/Day Years Used Date Smoking Tobacco: Unknown Comments: Smoking History Info:Patient n ot screened Sex Assigned at Date Recorded Not on file documented as of this encounter Miscellaneous Notes Dialysis Note - Ernie Pompa MD - 06/10/2020 11:04 AM CDT Date: Jun 10, 2020 Patient Name: Shaun Ocampo : 1945 Chart #: [id number] Sex: M This patient was personally seen [...] AM ) BP (sit): 120/54 AP(-) / ONION TIER: 219/180 Pulse: 69 Chairside data as of [...] Every 4 weeks During Dialysis 04/15/2020 04/14/2021 ALARM FIELD TECHNICIAN: Ernie Pompa MD LOCATION: [phone] SCHEDULE: M-W-F 2nd Shift ACCESS: EDW: kg. [...] Went to Urgent care -> ER in [place] yesterday,CT with R hydro but no obstructive [...] He had infiltration last week, dialyzed at [facility] on Sat and went well, access [...] (03/25/20) Vascular Access Assessment: Type of access: Pphzyxn92/2019 Surgeon - Lary GARDNER Access working well [...]
--- OUTSIDE RECORDS SUMMARY | 2021-11-04 08:39 | XMS_ITS | Encounter Summary ---
:1945 Author Organization [facility] Address [address] [place] [address] Care Team Providers Name Role Phone Unavailable Primary Care Provider Unavailable Encounter Details Date Type Department Care Team Description 07/01/2020 Orders Only [facility] f Ernie Guzmán MD [phone] [place] [address] [place], [place] [phone] (Wo rk) Social History Tobacco Use Types Packs/Day Years Used Date Smoking Tobacco: Unknown Comments: Smoking History Info:Patient n ot screened Sex Assigned at Date Recorded Not on file documented as of this encounter Plan of Treatment Not on filedocumented as of this encounter Procedures Procedure Name Priority Date/Time Associated Diagnosis Comme nts HEMATOLOGY Routine 07/01/2020 Results for thi s procedure are in the resu lts section. documented in this encounter Results (ABNORMAL) HEMATOLOGY (07/01/2020) Analysis Performed At Patho logist Time Signature Hemoglobin 9.6 (L) 14.0 - [facility] 18.0 g/dL [facility] Hemoglobin x 3 28.8 (L) 42.0 - [facility] 54.0 % [facility] Specimen (Source) Anatomical Collection Method Collection Time Re ceived Time Location / / Volume Laterality 07/01/2020 07/02/2020 7:17 PM CDT Narrative [facility] - 07/03/2020 Unless otherwise specified, test(s) performed at: [facility], [address] [place] [address] MOLD MAKING PLASTICS SHEETS SUPERVISOR: Alec Payan M.D. For any questions, please call customer service at FREQUENCY:OTHER Resulting Agency Comment Specimen source: Blood Ernie Pompa MD LAB BLOOD ORDERABLES Performing Organization Address City/State/ZIP Code Phon e Number [facility] documented in this encounter Visit Diagnoses Not on filedocumented in this encounter
--- OUTSIDE RECORDS SUMMARY | 2021-11-04 08:39 | XMS_ITS | Encounter Summary ---
:1945 Author Organization [facility] Address [address] [place] [address] Care Team Providers Name Role Phone Unavailable Primary Care Provider Unavailable Encounter Details Date Type Department Care Team Description 05/06/2020 Orders [facility] f Ernie Guzmán MD [address] [place] [address] [place], [place] [phone] (Wo rk) Social History Tobacco Use [...] / Volume Laterality 05/06/2020 05/07/2020 2:32 PM CREDIT REPORT CHECKER Narrative [facility] - 05/07/2020 Unless otherwise specified, test(s) performed at: [facility], [address] [place] [address] CARD FILER: Alec Payan M.D. For any questions, please call customer service at FREQUENCY:OTHER Resulting Agency Comment Specimen source: Blood Ernie Pompa MD LAB BLOOD ORDERABLES Performing Organization Address City/State/ZIP Code Phon e Number [facility] documented in this encounter Visit Diagnoses Not on filedocumented in this encounter
--- OUTSIDE RECORDS SUMMARY | 2021-11-04 08:39 | XMS_ITS | Encounter Summary ---
:1945 Author Organization [facility] Address [address] [place] [address] Care Team Providers Name Role Phone Unavailable Primary Care Provider Unavailable Encounter Details Date Type Department Care Team Description 06/10/2020 Orders [facility] f Ernie Guzmán MD [address] [place] [address] [place], [place] [phone] (Wo rk) Social History Tobacco Use [...] 06/11/2020 Unless otherwise specified, test(s) performed at: [facility], [address] [place] [address] WHOLESALE AGRONOMIST: Alec Payan M.D. For any questions, please call customer service at FREQUENCY:OTHER Resulting Agency Comment Specimen source: Blood Ernie Pompa MD LAB BLOOD ORDERABLES Performing Organization Address City/State/ZIP Code Phon e Number [facility] documented in this encounter Visit Diagnoses Not on filedocumented in this encounter
--- OUTSIDE RECORDS SUMMARY | 2021-11-04 08:40 | XMS_ITS | Encounter Summary ---
:1945 Author Organization [facility] Address [address] [place] [address] Care Team Providers Name Role Phone Unavailable Primary Care Provider Unavailable Encounter Details Date Type Department Care Team Description 04/08/2020 Treatment [facility] f Ernie Guzmán MD [address] [place] [address] [place], [place] [phone] (Wo rk) Social History Tobacco Use Types Packs/Day Years Used Date Smoking Tobacco: Unknown Comments: Smoking History Info:Patient n ot screened Sex Assigned at Date Recorded Not on file documented as of this encounter Miscellaneous Notes Dialysis Note - Ernie Pompa MD - 04/08/2020 12:32 PM CST Date: Apr 08, 2020 Patient Name: Shaun Ocampo : 1945 Chart #: [id number] Sex: M This patient was personally seen [...] PM ) BP (sit): 101/53 AP(-) / HEAT AND FROST INSULATOR HELPER: 255/193 Pulse: 70 Chairside data as of [...] Every 4 weeks During Dialysis 03/18/2020 03/17/2021 WOODS MANAGER: Ernie Pompa MD LOCATION: [phone] SCHEDULE: M-W- 2nd Shift ACCESS: EDW: kg. [...] He had infiltration last week, dialyzed at [facility] on Sat and went well, access [...] (09/18/19) Vascular Access Assessment: Type of access: Akhjuse56/2019 Surgeon - Lary GARDNER Access working well [...]
--- OUTSIDE RECORDS SUMMARY | 2021-11-04 08:40 | XMS_ITS | Encounter Summary ---
:1945 Author Organization [facility] Address [address] [place] [address] Care Team Providers Name Role Phone Unavailable Primary Care Provider Unavailable Encounter Details Date Type Department Care Team Description 04/08/2020 Orders Only [facility] f Ernie Guzmán MD [phone] [place] [address] [place], [place] [phone] (Wo rk) Social History Tobacco Use Types Packs/Day Years Used Date Smoking Tobacco: Unknown Comments: Smoking History Info:Patient n ot screened Sex Assigned at Date Recorded Not on file documented as of this encounter Plan of Treatment Not on filedocumented as of this encounter Procedures Procedure Name Priority Date/Time Associated Diagnosis Comme nts HEMATOLOGY Routine 04/08/2020 Results for thi s procedure are in the resu lts section. documented in this encounter Results (ABNORMAL) HEMATOLOGY (04/08/2020) Analysis Performed At Patho logist Time Signature Hemoglobin 9.8 (L) 14.0 - [facility] 18.0 g/dL [facility] Hemoglobin x 3 29.4 (L) 42.0 - [facility] 54.0 % [facility] Specimen (Source) Anatomical Collection Method Collection Time Re ceived Time Location / / Volume Laterality 04/08/2020 04/09/2020 2:20 PM BILLIARD PLAYER Narrative [facility] - 04/09/2020 Unless otherwise specified, test(s) performed at: [facility], [address] [place] [address] CRACKING UNIT OPERATOR: Alec Payan M.D. For any questions, please call customer service at FREQUENCY:OTHER Resulting Agency Comment Specimen source: Blood Ernie Pompa MD LAB BLOOD ORDERABLES Performing Organization Address City/State/ZIP Code Phon e Number [facility] documented in this encounter Visit Diagnoses Not on filedocumented in this encounter
--- OUTSIDE RECORDS SUMMARY | 2021-11-04 08:40 | XMS_ITS | Encounter Summary ---
:1945 Author Organization [facility] Address [address] [place] [address] Care Team Providers Name Role Phone Unavailable Primary Care Provider Unavailable Encounter Details Date Type Department Care Team Description 03/16/2020 Orders [facility] f Ernie Guzmán MD [phone] [place] [address] [place], [place] [phone] (Wo rk) Social History Tobacco Use [...] Volume Laterality 03/16/2020 03/17/2020 12:0 2 PM INSECTICIDE SUPERVISOR Narrative [facility] - 03/17/2020 Unless otherwise specified, test(s) performed at: [facility], [address] [place] [address] ASSISTANT SERVICE MANAGER: Alec Payan M.D. For any questions, please call customer service at FREQUENCY:OTHER Resulting Agency Comment Specimen source: Blood Ernie Pompa MD LAB BLOOD ORDERABLES Performing Organization Address City/State/ZIP Code Phon e Number [facility] documented in this encounter Visit Diagnoses Not on filedocumented in this encounter
--- OUTSIDE RECORDS SUMMARY | 2021-11-04 08:40 | XMS_ITS | Encounter Summary ---
:1945 Author Organization [facility] Address [address] [place] [address] Care Team Providers Name Role Phone Unavailable Primary Care Provider Unavailable Encounter Details Date Type Department Care Team Description 03/09/2020 Orders Only [facility] f Ernie Guzmán MD [address] [place] [address] [place], [place] [phone] (Wo rk) Social History Tobacco Use [...] athologist Signature Hepatitis B <10 mIU/mL [facility]PS [facility] Surface Ab [facility] Comment: Reference Range: <10 mIU/mL ? Non-Immune >=10 mIU/mL ?Immune The magnitude of the measured result abo ve 10 mIU/mL is not indicative of the total amount of antibody present. Custom Exception Specimen (Source) Anatomical Collection Method Collection Time Re ceived Time Location / / Volume Laterality 03/09/2020 03/10/2020 2:47 PM TWINE WINDER Narrative [facility] - 03/10/2020 Unless otherwise specified, test(s) performed at: [facility], [address] [place] [address] BOILER PLANT OPERATOR: Alec Payan M.D. For any questions, [...] Volume Laterality 03/09/2020 03/10/2020 12:1 4 PM TWINE WINDER Narrative [facility] - 03/10/2020 Unless otherwise specified, test(s) performed at: [facility], [address] [place] [address] BOILER PLANT OPERATOR: Alec Payan M.D. For any questions, please call customer service at FREQUENCY:OTHER Resulting Agency Comment Specimen source: Blood Ernie Pompa MD LAB BLOOD ORDERABLES Performing Organization Address City/State/ZIP Code Phon e Number [facility] documented in this encounter Visit Diagnoses Not on filedocumented in this encounter
--- OUTSIDE RECORDS SUMMARY | 2021-11-04 08:40 | XMS_ITS | Encounter Summary ---
:1945 Author Organization [facility] Address [address] [place] [address] Care Team Providers Name Role Phone Unavailable Primary Care Provider Unavailable Encounter Details Date Type Department Care Team Description 01/01/2020 Orders [facility] f Ernie Guzmán MD [address] [place] [address] [place], [place] [phone] (Wo rk) Social History Tobacco Use [...] Provider LAB BLOOD ORDERABLES Performing Organization Address City/[facility]/ZIP Code Phon e Number [facility] (01/01/2020) P athologist Signature % Urea 77 65 - 80 % [facility] Reduction [facility] Specimen (Source) Anatomical Collection Method Collection Time Re ceived Time Location / / Volume Laterality 01/01/2020 01/02/2020 6:37 PM CDT Narrative [facility] - 01/02/2020 Unless otherwise specified, test(s) performed at: [facility], [address] [place] [address] ACUTE CARE PHYSICAL THERAPIST: Alec Payan M.D. For any questions, please call customer service at FREQUENCY:OTHER Resulting Agency Comment Specimen source: Serum Ernie Pompa MD LAB BLOOD ORDERABLES Performing Organization Address [facility] Phon e Number [facility]PS S[facility]RA [facility] (ABNORMAL) Spectrae Chemistry (01/01/2020) P athologist Signature BUN 53 (H) 6 - 19 [facility] mg/dL [facility] Specimen (Source) Anatomical Collection Method Collection Time Re ceived Time Location / / Volume Laterality 01/01/2020 01/02/2020 6:36 PM CDT Narrative [facility] - 01/02/2020 Unless otherwise specified, test(s) performed at: [facility], [address] [place], [place] [id number] ACUTE CARE PHYSICAL THERAPIST: Alec Payan M.D. For any questions, please call customer service at FREQUENCY:OTHER Resulting Agency Comment Specimen source: Serum Ernie Pompa MD LAB BLOOD ORDERABLES Performing Organization Address City/[facility] Phon e Number APS [...] 01/02/2020 Unless otherwise specified, test(s) performed at: [facility], [address] [place] [address] ACUTE CARE PHYSICAL THERAPIST: Alec Payan M.D. For any questions, please call customer service at FREQUENCY:OTHER Resulting Agency Comment Specimen source: Blood Ernie Pompa MD LAB BLOOD ORDERABLES Performing Organization Address City/State/[facility] Code Phon e Number [facility] POST CHEMISTRY (01/01/2020) P athologist Signature BUN Post 12 6 - 19 APS [facility]RA Dialysis mg/dL [facility] Specimen (Source) Anatomical Collection Method Collection Time Re ceived Time Location / / Volume Laterality 01/01/2020 01/02/2020 2:30 PM CDT Narrative [facility] - 01/02/2020 Unless otherwise specified, test(s) performed at: [facility], [address] [place] [address] ACUTE CARE PHYSICAL THERAPIST: Alec Payan M.D. For any questions, please call customer service at FREQUENCY:OTHER Resulting Agency Comment Specimen source: Plasma Ernie Pompa MD LAB BLOOD ORDERABLES Performing Organization Address City/State/[facility] Code Phon e Number [facility] documented in this encounter Visit Diagnoses Not on filedocumented in this encounter
--- OUTSIDE RECORDS SUMMARY | 2021-11-04 08:40 | XMS_ITS | Encounter Summary ---
:1945 Author Organization [facility] Address [address] [place] [address] Care Team Providers Name Role Phone Unavailable Primary Care Provider Unavailable Encounter Details Date Type Department Care Team Description 01/15/2020 Orders [facility] O f Ernie Guzmán MD [address] [place] [address] [place], [place] [phone] (Wo rk) Social History Tobacco Use [...] 01/16/2020 Unless otherwise specified, test(s) performed at: [facility], [address] [place] [address] SOUND ENGINEER: Alec Payan M.D. For any questions, please call customer service at FREQUENCY:OTHER Resulting Agency Comment Specimen source: Blood Ernie Pompa MD LAB BLOOD ORDERABLES Performing Organization Address City/State/ZIP Code Phon e Number [facility] documented in this encounter Visit Diagnoses Not on filedocumented in this encounter
--- OUTSIDE RECORDS SUMMARY | 2021-11-04 08:40 | XMS_ITS | Encounter Summary ---
:1945 Author Organization [facility] Address [address] [place] [address] Care Team Providers Name Role Phone Unavailable Primary Care Provider Unavailable Encounter Details Date Type Department Care Team Description 12/04/2019 Treatment [facility] O Ernie Gómez MD [address] [place] [address] [place], [place] [phone] [phone] (Wo rk) Social History Tobacco Use Types Packs/Day Years Used Date Smoking Tobacco: Unknown Comments: Smoking History Info:Patient n ot screened Sex Assigned at Date Recorded Not on file documented as of this encounter Miscellaneous Notes Dialysis Note - Ernie Pompa MD - 12/04/2019 12:16 PM CDT Date: Dec 04, 2019 Patient Name: Shaun Ocampo : 1945 Chart #: [id number] Sex: M This patient was personally seen for a basic visit as part of routine weekly dialysis care. A reviewof the dialysis treatment, blood pressure, estimated dry weight and recent lab values was made. These were discussed with the patient and staff as necessary. Treatment Medication Orders Medication Sig Start Date End Date Flu Vaccine - Fluarix Quadrivalent 0.5 mL IM Once During Dialysis 12/04/2019 12/04/2019 Heparin Sodium (Porcine) 1,000 Units/mL Systemic 2000 units IVP Every Treatment 05/01/2019 04/29/2020 Heparin Sodium (Porcine) 1,000 Units/mL Systemic 1000 units IVP Every Treatment 05/01/2019 04/29/2020 Iron Sucrose (Venofer) 50 mg IVP 1X Week During Dialysis 10/28/2019 10/19/2020 Mircera 50 mcg IVP Every 2 weeks During Dialysis 11/27/2019 11/25/2020 TAR HEEL: Ernie Pompa MD LOCATION: [phone] SCHEDULE: -- 2nd Shift ACCESS: EDW: kg. DIALYZER: HD DURATION: NEEDLE SIZE: ANTICOAG: BATH: QB: ml/min QD: ml/min Subjective Tolerating dialysis well. 12/03: Feeling well and has no complaints [...] He had infiltration last week, dialyzed at [facility] on Sat and went well, access [...] virtually with video during the COVID-19 pandemic. Dunn is doing well. He has [...] No murmur heard. Edema - Trace edema. with chronic venous stasis changes Access [...] no changes were made. BUN mg/dL 51 (11/20/19) 54 (10/28/19) 47 [...] (10/28/19) 1.7600 (09/18/19) 1.6000 (08/21/19) 1.3500 (07/24/19) HEMOGLOBIN (G/DL) IN BLOOD g/dL 10.9 (11/27/19) 11.1 (11/20/19) 10.1 (11/13/19) 10.5 (11/06/19) 10.3 (11/04/19) PLATELETS 1000/mcL 194 (11/20/19) 174 (10/23/19) 200 (09/18/19) 208 (08/21/19) 218 (07/24/19) IRON SATURATION % 42 (11/20/19) 40 (10/23/19) 34 (09/18/19) 24 (08/21/19) 20 (07/24/19) FERRITIN ng/mL 844 (09/18/19) 200 (07/29/19) 134 (06/19/19) 252 (05/29/19) 105 (05/01/19) ALBUMIN (G/DL) g/dL 3.8 (11/20/19) 3.8 (10/23/19) 3.8 (09/18/19) Sodium mEq/L 138 (11/20/19) 137 (10/23/19) 136 (09/18/19) POTASSIUM (MMOL/L) IN SER/PLAS mEq/L 4.3 (11/20/19) 4.0 (10/23/19) 4.5 (09/18/19) BICARBONATE (CO2) mEq/L 22 (11/20/19) 21 (10/23/19) 23 (09/18/19) 25 OH VITAMIN D ng/mL 62.4 (09/18/19) 44.4 (05/01/19) BUN/CREATININE (MASS RATIO) IN SER/PLAS 11.1 (11/20/19) 10.8 (10/23/19) 10.4 (09/18/19) Calcium mg/dL 10.2 (11/20/19) 9.9 (11/13/19) 10.2 (10/23/19) Calcium Phos Product 49 (11/20/19) 58 (10/23/19) 38 (09/18/19) CALCIUM (MG/DL) CORRECTED FOR ALBUMIN IN SER/PLAS mg/dL 10.4 (11/20/19) 10.4 (10/23/19) 10.5 (09/18/19) PHOSPHATE (MG/DL) IN SER/PLAS mg/dL 4.8 (11/20/19) 5.7 (10/23/19) 3.7 (09/18/19) IPTH pg/mL 167 (09/18/19) 164 (07/24/19) 199 (06/19/19) Vascular Access Assessment: Type of access: Oemphsn30/2019 Surgeon - Lary KUMARW Access working well Impression and Plan Discussed lowering fluid gains in more detail today Challenge EDW further if fluid gains lower after education on this Monitor Ca, still just barely above 10 despite stopping all Ca and Vit D. Ernie Pompa MD [ Signed And locked electronically On 12/04/2019 at 12:18:45 PM ] Transcribed: Ernie Pompa ( 12/04/2019 ) documented in this encounter Plan of Treatment Not on filedocumented as of this encounter Visit Diagnoses Not on filedocumented in this encounter
--- OUTSIDE RECORDS SUMMARY | 2021-11-04 08:40 | XMS_ITS | Encounter Summary ---
:1945 Author Organization [facility] Address [address] [place] [address] Care Team Providers Name Role Phone Unavailable Primary Care Provider Unavailable Encounter Details Date Type Department Care Team Description 12/11/2019 Orders Only [facility] O f Ernie Guzmán MD [address] [place] [address] [place], [place] [phone] (Wo rk) Social History Tobacco Use [...] 12/12/2019 Unless otherwise specified, test(s) performed at: [facility], [address] [place] [address] CARTON MACHINE OPERATOR: Alec Payan M.D. For any questions, please call customer service at FREQUENCY:OTHER Resulting Agency Comment Specimen source: Blood Ernie Pompa MD LAB BLOOD ORDERABLES Performing Organization Address City/State/ZIP Code Phon e Number [facility] documented in this encounter Visit Diagnoses Not on filedocumented in this encounter
--- OUTSIDE RECORDS SUMMARY | 2021-11-04 08:40 | XMS_ITS | Encounter Summary ---
:1945 Author Organization [facility] Address [address] [place] [address] Care Team Providers Name Role Phone Unavailable Primary Care Provider Unavailable Encounter Details Date Type Department Care Team Description 04/01/2020 Orders Only [facility] O f Ernie Guzmán MD [address] [place] [address] [place], [place] [phone] (Wo rk) Social History Tobacco Use [...] / Volume Laterality 04/01/2020 04/02/2020 2:28 PM TERRITORY SUPERVISOR Narrative [facility]PS SPECTRA [facility] - 04/02/2020 Unless otherwise specified, test(s) performed at: [facility], [address] [place] [address] LICENSING SERVICES CLERK: Alec Payan M.D. For any questions, please call customer service at FREQUENCY:OTHER Resulting Agency Comment Specimen source: Blood Ernie Pompa MD LAB BLOOD ORDERABLES Performing Organization Address City/State/ZIP Code Phon e Number [facility] documented in this encounter Visit Diagnoses Not on filedocumented in this encounter
--- OUTSIDE RECORDS SUMMARY | 2021-11-04 08:40 | XMS_ITS | Encounter Summary ---
:1945 Author Organization [facility] Address [address] [place] [address] Care Team Providers Name Role Phone Unavailable Primary Care Provider Unavailable Encounter Details Date Type Department Care Team Description 12/18/2019 Orders [facility] O f Ernie Guzmán MD [address] [place] [address] [place], [place] [phone] (Wo rk) Social History Tobacco Use [...] 12/19/2019 Unless otherwise specified, test(s) performed at: [facility], [address] [place] [address] TABLE CUT OFF SAW OPERATOR: Alec Payan M.D. For any questions, please call customer service at FREQUENCY:OTHER Resulting Agency Comment Specimen source: Blood Ernie Pompa MD LAB BLOOD ORDERABLES Performing Organization Address City/State/ZIP Code Phon e Number [facility] documented in this encounter Visit Diagnoses Not on filedocumented in this encounter
--- OUTSIDE RECORDS SUMMARY | 2021-11-04 08:40 | XMS_ITS | Encounter Summary ---
:1945 Author Organization [facility] Address [address] [place] [address] Care Team Providers Name Role Phone Unavailable Primary Care Provider Unavailable Encounter Details Date Type Department Care Team Description 02/19/2020 Orders Only [facility] f Ernie Guzmán MD [address] [place] [address] [place], [place] [phone] (Wo rk) Social History Tobacco Use [...] / Volume Laterality 02/19/2020 02/20/2020 6:44 PM ALL SOURCE COLLECTION MANAGER Resulting Agency Comment Specimen source: Plasma Ernie Pompa MD LAB BLOOD ORDERABLES Performing Organization Address City/State/ZIP Code Phon e Number [facility] POST [facility]MISTRY (02/19/2020) P athologist Signature BUN Post 13 6 - 19 [facility] Dialysis mg/dL [facility] Specimen (Source) Anatomical Collection Method Collection Time Re ceived Time Location / / Volume Laterality 02/19/2020 02/20/2020 6:39 PM ALL SOURCE COLLECTION MANAGER Narrative [facility] - 02/21/2020 Unless otherwise specified, test(s) performed at: [facility], [address] [place] [address] PRINTER TECHNICIAN: Alec Payan M.D. For any questions, please call customer service at FREQUENCY:MONTHLY Resulting Agency Comment Specimen source: Plasma Ernie Pompa MD LAB BLOOD ORDERABLES Performing Organization Address City/[facility]/ZIP Code Phon e Number [facility] [...] Volume Laterality 02/19/2020 02/20/2020 10:1 5 AM ALL SOURCE COLLECTION MANAGER Narrative [facility] - 02/20/2020 Unless otherwise specified, test(s) performed at: [facility], [address] [place], [place] [id number] PRINTER TECHNICIAN: Alec Payna M.D. For any questions, please call customer [...] Volume Laterality 02/19/2020 02/20/2020 10:4 6 AM ALL SOURCE COLLECTION MANAGER Resulting Agency Comment Specimen source: Serum Ernie [...] Volume Laterality 02/19/2020 02/20/2020 10:4 6 AM ALL SOURCE COLLECTION MANAGER Narrative [facility] - 02/20/2020 Unless otherwise specified, test(s) performed at: [facility], [address] [place] [address] PRINTER TECHNICIAN: Alec Payan M.D. For any questions, please call customer service at FREQUENCY:MONTHLY Resulting Agency Comment Specimen source: Serum Ernie Pompa MD LAB BLOOD ORDERABLES Performing Organization Address City/State/ZIP Code Phon e Number [facility] documented in this encounter Visit Diagnoses Not on filedocumented in this encounter
--- OUTSIDE RECORDS SUMMARY | 2021-11-04 08:40 | XMS_ITS | Encounter Summary ---
:1945 Author Organization [facility] Address [address] [place] [address] Care Team Providers Name Role Phone Unavailable Primary Care Provider Unavailable Encounter Details Date Type Department Care Team Description 03/04/2020 Treatment [facility] Ernie Gómez MD [address] [place] [address] [place], [place] [phone] (Wo rk) Social History Tobacco Use Types Packs/Day Years Used Date Smoking Tobacco: Unknown Comments: Smoking History Info:Patient n ot screened Sex Assigned at Date Recorded Not on file documented as of this encounter Miscellaneous Notes Dialysis Note - Ernie Pompa MD - 03/04/2020 9:33 AM CST Date: Mar 04, 2020 Patient Name: Shaun Ocampo : 1945 Chart #: [id number] Sex: M This patient was personally seen [...] AM ) BP (sit): 95/48 AP(-) / INFORMATION TECHNOLOGY PROFESSOR: 248/204 Pulse: 71 Chairside data as of [...] Every 4 weeks During Dialysis 02/12/2020 02/10/2021 TILESETTER: Ernie Pompa MD LOCATION: [facility] [phone] SCHEDULE: M-W- 2nd Shift ACCESS: EDW: kg. [...] He had infiltration last week, dialyzed at [facility] on Sat and went well, access [...] (07/24/19) Vascular Access Assessment: Type of access: [id number]/2019 Surgeon - Lary GARDNER Access working well [...]
--- OUTSIDE RECORDS SUMMARY | 2021-11-04 08:40 | XMS_ITS | Encounter Summary ---
:1945 Author Organization [facility] Address [address] [place] [address] Care Team Providers Name Role Phone Unavailable Primary Care Provider Unavailable Encounter Details Date Type Department Care Team Description 01/29/2020 Orders Only [facility] f Ernie Guzmán MD [address] [place] [address] [place], [place] [phone] (Wo rk) Social History Tobacco Use [...] / Volume Laterality 01/29/2020 01/30/2020 5:28 PM CRYPTOLOGIST Narrative [facility] - 01/30/2020 Unless otherwise specified, test(s) performed at: [facility], [address] [place] [address] PARTS REMOVER: Alec Payan M.D. For any questions, please [...] / Volume Laterality 01/29/2020 01/30/2020 1:32 PM CRYPTOLOGIST Narrative [facility] - 01/30/2020 Unless otherwise specified, test(s) performed at: [facility], [address] [place] [address] PARTS REMOVER: Alec Payan M.D. For any questions, please call customer service at FREQUENCY:OTHER Resulting Agency Comment Specimen source: Blood Ernie Pompa MD LAB BLOOD ORDERABLES Performing Organization Address City/State/ZIP Code Phon e Number [facility] documented in this encounter Visit Diagnoses Not on filedocumented in this encounter
--- OUTSIDE RECORDS SUMMARY | 2021-11-04 08:40 | XMS_ITS | Encounter Summary ---
:1945 Author Organization [facility] Address [address] [place] [address] Care Team Providers Name Role Phone Unavailable Primary Care Provider Unavailable Encounter Details Date Type Department Care Team Description 11/27/2019 Orders Only [facility] f Ernie Guzmán MD [address] [place] [address] [place], [place] [phone] (Wo rk) Social History Tobacco Use [...] in this encounter Results (ABNORMAL) HEMATOLOGY (11/27/2019) [facility] gist Method Time Signature Neutrophils 77.3 [...] 11/29/2019 Unless otherwise specified, test(s) performed at: [facility], [address] [place] [address] FRONT SERVICES AGENT: Alec Payan M.D. For any questions, please call customer service at FREQUENCY:OTHER Resulting Agency Comment Specimen source: Blood Ernie Pompa MD LAB BLOOD ORDERABLES Performing Organization Address City/State/ZIP Code Phon e Number [facility] documented in this encounter Visit Diagnoses Not on filedocumented in this encounter
--- OUTSIDE RECORDS SUMMARY | 2021-11-04 08:40 | XMS_ITS | Encounter Summary ---
:1945 Author Organization [facility] Address [address] [place] [address] Care Team Providers Name Role Phone Unavailable Primary Care Provider Unavailable Encounter Details Date Type Department Care Team Description 03/25/2020 Treatment [facility] f Ernie Guzmán MD [address] [place] [address] [place], [place] [phone] (Wo rk) Social History Tobacco Use Types Packs/Day Years Used Date Smoking Tobacco: Unknown Comments: Smoking History Info:Patient n ot screened Sex Assigned at Date Recorded Not on file documented as of this encounter Miscellaneous Notes Dialysis Note - Ernie Pompa MD - 03/25/2020 10:39 AM CST Date: Mar 25, 2020 Patient Name: Shaun Ocampo : 1945 Chart #: [id number] Sex: M This patient was personally seen [...] AM ) BP (sit): 115/62 AP(-) / MANAGER CARDIOLOGY: 248/203 Pulse: 72 Chairside data as of [...] Every 4 weeks During Dialysis 03/18/2020 03/17/2021 FINANCIAL SERVICES AUDITOR: Ernie Pompa MD LOCATION: [phone] SCHEDULE: M-W-F 2nd Shift EDW: kg. DIALYZER: [...] prescription. Vascular Access Assessment Type of access: Vlaegoc56/2019 Surgeon - Lary KUMARW Access working well [...] above goal. Intact PTH is at goal. Mass Spec will adjust binders and vitamin D per [...]
--- OUTSIDE RECORDS SUMMARY | 2021-11-04 08:40 | XMS_ITS | Encounter Summary ---
:1945 Author Organization [facility] Address [address] [place] [address] Care Team Providers Name Role Phone Unavailable Primary Care Provider Unavailable Encounter Details Date Type Department Care Team Description 01/08/2020 Treatment [facility] Ernie Gómez MD [address] [place] [address] [place], [place] [phone] (Wo rk) Social History Tobacco Use Types Packs/Day Years Used Date Smoking Tobacco: Unknown Comments: Smoking History Info:Patient n ot screened Sex Assigned at Date Recorded Not on file documented as of this encounter Miscellaneous Notes Dialysis Note - Ernie Pompa MD - 01/08/2020 12:11 PM CDT Date: Jan 08, 2020 Patient Name: Shaun Ocampo : 1945 Chart #: [id number] Sex: M This patient was personally seen [...] PM ) BP (sit): 118/58 AP(-) / UMBRELLA TIPPER HAND: 261/204 Pulse: 66 Chairside data as of [...] IVP 1X Week During Dialysis 10/28/2019 10/19/2020 CONTRACTS ATTORNEY: Ernie Pompa MD LOCATION: [phone] SCHEDULE: -W- 2nd Shift ACCESS: EDW: kg. [...] had infiltration last week, dialyzed at [facility] on Sat and went well, access [...] (07/24/19) Vascular Access Assessment: Type of access: [id number]/2019 Surgeon - Lary GARDNER Access working well Impression and Plan No changes, stable dialysis Ernie Pompa MD [ Signed And locked electronically On 01/08/2020 at 12:12:00 PM ] Transcribed: Ernie Pompa ( 01/08/2020 ) documented in this encounter Plan of Treatment Not on filedocumented as of this encounter Visit Diagnoses Not on filedocumented in this encounter
--- OUTSIDE RECORDS SUMMARY | 2021-11-04 08:40 | XMS_ITS | Encounter Summary ---
:1945 Author Organization [facility] Address [address] [place] [address] Care Team Providers Name Role Phone Unavailable Primary Care Provider Unavailable Encounter Details Date Type Department Care Team Description 02/05/2020 Orders Only [facility] f Ernie Guzmán MD [address] [place] [address] [place], [place] [phone] (Wo rk) Social History Tobacco Use [...] Volume Laterality 02/05/2020 02/06/2020 10:4 4 AM TECHNICAL SUPPORT INTERN Narrative [facility] - 02/06/2020 Unless otherwise specified, test(s) performed at: [facility], [address] [place] [address] VP SALES: Alec Payan M.D. For any questions, please call customer service at FREQUENCY:OTHER Resulting Agency Comment Specimen source: Blood Ernie Pompa MD LAB BLOOD ORDERABLES Performing Organization Address City/State/ZIP Code Phon e Number [facility] documented in this encounter Visit Diagnoses Not on filedocumented in this encounter
--- OUTSIDE RECORDS SUMMARY | 2021-11-04 08:40 | XMS_ITS | Encounter Summary ---
:1945 Author Organization [facility] Address [address] [place] [address] Care Team Providers Name Role Phone Unavailable Primary Care Provider Unavailable Encounter Details Date Type Department Care Team Description 12/25/2019 Treatment [facility] Ernie Gómez MD [address] [place] [address] [place], [place] [phone] (Wo rk) Social History Tobacco Use Types Packs/Day Years Used Date Smoking Tobacco: Unknown Comments: Smoking History Info:Patient n ot screened Sex Assigned at Date Recorded Not on file documented as of this encounter Miscellaneous Notes Dialysis Note - Ernie Pompa MD - 12/25/2019 11:33 AM CDT Date: Dec 25, 2019 Patient Name: Shaun Ocampo : 1945 Chart #: [id number] Sex: M This patient was personally seen [...] AM ) BP (sit): 118/50 AP(-) / DONOR RECRUITER: 258/222 Pulse: 64 Chairside data as of [...] Access Flow > 2000 > 2000 1011 DISPLAY CARVER: Ernie Pompa MD LOCATION: [place] [phone] SCHEDULE: M-W- 2nd Shift EDW: kg. DIALYZER: [...] He had infiltration last week, dialyzed at [facility] on Sat and went well, [...] prescription. Vascular Access Assessment Type of access: Vvbwnoc37/2019 Surgeon Annita KUMARW Access working well Anemia [...] above goal. Intact PTH is below goal. Blind Slat Stapling Machine Operator will adjust binders and vitamin D [...]
--- OUTSIDE RECORDS SUMMARY | 2021-11-04 08:40 | XMS_ITS | Encounter Summary ---
:1945 Author Organization [facility] Address [address] [place] [address] Care Team Providers Name Role Phone Unavailable Primary Care Provider Unavailable Encounter Details Date Type Department Care Team Description 04/22/2020 Treatment [facility] f Ernie Guzmán MD [address] [place] [address] [place], [place] [phone] (Wo rk) Social History Tobacco Use Types Packs/Day Years Used Date Smoking Tobacco: Unknown Comments: Smoking History Info:Patient n ot screened Sex Assigned at Date Recorded Not on file documented as of this encounter Miscellaneous Notes Dialysis Note - Ernie Pompa MD - 04/22/2020 11:52 AM CST Date: Apr 22, 2020 Patient Name: Shaun Ocampo : 1945 Chart #: [id number] Sex: M This patient was personally seen [...] AM ) BP (sit): 115/64 AP(-) / LOCOMOTIVE ENGINEER: 258/208 Pulse: 67 Chairside data as of [...] Every 4 weeks During Dialysis 04/15/2020 04/14/2021 FIELD PIPE LINES SUPERVISOR: Ernie Pompa MD LOCATION: [phone] SCHEDULE: M-W-F 2nd Shift EDW: kg. DIALYZER: [...] had infiltration last week, dialyzed at [facility] on Sat and went well, access [...] prescription. Vascular Access Assessment Type of access: [id number]/2019 Surgeon - Lary GARDNER Access working well [...] above goal. Intact PTH is above goal. Head Start Coordinator will adjust binders and vitamin D per [...]
--- OUTSIDE RECORDS SUMMARY | 2021-11-04 08:40 | XMS_ITS | Encounter Summary ---
:1945 Author Organization [facility] Address [address] [place] [address] [address] [place] [address] Care Team Providers Name Role Phone Unavailable Primary Care Provider Unavailable Encounter Details Date Type Department Care Team Description 02/26/2020 Orders Only [facility] O f Ernie Guzmán MD [address] [place] [address] [place], [place] [phone] (Wo rk) Social History Tobacco Use [...] / Volume Laterality 02/26/2020 02/27/2020 2:55 PM ACCOUNT MANAGER SALES REPRESENTATIVE Narrative [facility] - 02/27/2020 Unless otherwise specified, test(s) performed at: [facility], [address] [place] [address] SENIOR DIRECTOR CREATIVE SERVICES: Alec Payan M.D. For any questions, please call customer service at FREQUENCY:OTHER Resulting Agency Comment Specimen source: Blood Ernie Pompa MD LAB BLOOD ORDERABLES Performing Organization Address City/State/ZIP Code Phon e Number [facility] documented in this encounter Visit Diagnoses Not on filedocumented in this encounter
--- OUTSIDE RECORDS SUMMARY | 2021-11-04 08:40 | XMS_ITS | Encounter Summary ---
:1945 Author Organization [facility] Address [address] [place] [address] Care Team Providers Name Role Phone Unavailable Primary Care Provider Unavailable Encounter Details Date Type Department Care Team Description 01/22/2020 Treatment [facility] O Ernie Gómez MD [address] [place] [address] [place], [place] [phone] (Wo rk) Social History Tobacco Use Types Packs/Day Years Used Date Smoking Tobacco: Unknown Comments: Smoking History Info:Patient n ot screened Sex Assigned at Date Recorded Not on file documented as of this encounter Miscellaneous Notes Dialysis Note - Ernie Pomap MD - 01/22/2020 9:00 AM CST Date: Jan 22, 2020 Patient Name: Shaun Ocampo : 1945 Chart #: [id number] Sex: M This patient was personally seen for a complete visit as part of routine monthly dialysis care. A review of the dialysis treatment, blood pressure, estimated dry weight and recent lab values was made. These were discussed with the patient and staff as necessary. Treatment Data for 01/22/2020 started at:7:34 AM Dialyzer: 180NRe Optiflux Na: 138 mEq/L Bicarb: 26 mEq/L Dialysate: 2.0 K, 2.25 Ca, 1.0 Mg, 100 Dextrose (G2231) Dialysate/Machine Temp (prescribed): 37 C Dialysate/Machine Temp (actual): 37.1 C BFR (prescribed): 500 BFR (actual): n/a Prescribed time: 04:00 EDW: 105.7 kg Access Type: Active (In Use):AVFistula-Standard/Left Upper Arm Pre Dialysis Vitals (for 01/22/2020 7:28 AM ) Pre BP (sit): 139/68 Pre Wt: 110.3 kg Temp: 96.1 F Post Dialysis Vitals (for 01/20/2020 11:39 AM ) Post BP (sit): 102/50 Post Wt: 105.8 kg Current Dialysis Vitals (for 01/22/2020 8:33 AM ) BP (sit): 139/67 AP(-) / SOLUTION DEVELOPER: n/a Pulse: 72 Chairside data as of 01/22/2020 8:33 AM Last 3 Treatments 01/20/2020 01/17/2020 01/15/2020 EDW (kg) 105.7 105.7 105.7 Weight Pre (kg) 110.6 109.4 110.1 Weight Post (kg) 105.8 106.1 105.5 Dialytic Weight Loss (kg) -4.8 -3.3 -4.6 EDW Deviation (kg) 0.1 0.4 -0.2 BP Sit Pre 153/74 151/54 151/66 BP Sit Post 102/50 128/59 151/70 UF Rate (mL/kg/hr) 11 8 11 Prescribed BFR 500 500 500 Average Delivered BFR 500 460 460 Prescribed Treatment Time 04:00 04:00 04:00 Actual Treatment Time 04:05 04:02 04:04 Last 3 Values 12/20/2019 11/22/2019 10/25/2019 Access [...] Every 2 weeks During Dialysis 01/22/2020 01/20/2021 LEGAL DIRECTOR: Ernie Pompa MD LOCATION: [facility] [phone] SCHEDULE: M-W-F 2nd Shift EDW: kg. DIALYZER: HD DURATION: NEEDLE SIZE: ANTICOAG: BATH: QB: ml/min QD: ml/min Subjective Tolerating dialysis well. 01/21: Shaun feels quite well, was out [...] He had infiltration last week, dialyzed at [facility] on Sat and went well, access [...] made. Treatment and Adequacy Assessment BUN mg/dL 53 (01/01/20) 48 (12/25/19) 51 [...] (11/20/19) 1.7000 (10/28/19) 1.7600 (09/18/19) 1.6000 (08/21/19) Dialysis is adequate. Achieves prescribed time - Yes Achieves prescribed frequency - Yes Continue current prescription. Vascular Access Assessment Type of access: [id number]/2019 Surgeon - Lary KUMARW Access working well Anemia Assessment HEMOGLOBIN (G/DL) IN BLOOD g/dL 11.0 (01/15/20) 11.4 (01/08/20) 11.6 (01/01/20) 11.3 (12/25/19) 11.2 (12/18/19) PLATELETS 1000/mcL 157 (12/25/19) 194 (11/20/19) 174 (10/23/19) 200 (09/18/19) 208 (08/21/19) IRON SATURATION % 45 (12/25/19) 42 (11/20/19) 40 (10/23/19) 34 (09/18/19) 24 (08/21/19) FERRITIN ng/mL 732 (12/25/19) 844 (09/18/19) 200 (07/29/19) 134 (06/19/19) 252 (05/29/19) Hemoglobin is at goal. Iron Saturation is at goal. Ferritin is at goal. Will adjust NATALEE and intravenous iron per protocol. Nutritional and Metabolic Assessment ALBUMIN (G/DL) g/dL 3.8 (12/25/19) 3.8 (11/20/19) 3.8 (10/23/19) 3.8 (09/18/19) 3.2 (08/21/19) Sodium mEq/L 137 (12/25/19) 138 (11/20/19) 137 (10/23/19) 136 (09/18/19) 137 (08/21/19) POTASSIUM (MMOL/L) IN SER/PLAS mEq/L 4.8 (12/25/19) 4.3 (11/20/19) 4.0 (10/23/19) 4.5 (09/18/19) 3.8 (08/21/19) BICARBONATE (CO2) mEq/L 22 (12/25/19) 22 (11/20/19) 21 (10/23/19) 23 (09/18/19) 27 (08/21/19) 25 OH VITAMIN D ng/mL 62.4 (09/18/19) 44.4 (05/01/19) Albumin is below goal. Encourage high-biological value protein intake. Potassium is at goal. Bicarbonate is at goal. Continue same bicarbonate in dialysate. Bone and Mineral Metabolism Assessment Calcium mg/dL 10.0 (12/25/19) 10.0 (12/04/19) 10.2 (11/20/19) 9.9 (11/13/19) 10.2 (10/23/19) CALCIUM (MG/DL) CORRECTED FOR ALBUMIN IN SER/PLAS mg/dL 10.2 (12/25/19) 10.4 (11/20/19) 10.4 (10/23/19) 10.5 (09/18/19) 10.3 (08/21/19) PHOSPHATE (MG/DL) IN SER/PLAS mg/dL 6.1 (12/25/19) 4.8 (11/20/19) 5.7 (10/23/19) 3.7 (09/18/19) 3.5 (08/21/19) CALCIUM PHOSPHORUS PRODUCT, COR 62 (12/25/19) 50 (11/20/19) 59 (10/23/19) 39 (09/18/19) 36 (08/21/19) IPTH pg/mL 506 (12/25/19) 167 (09/18/19) 164 (07/24/19) 199 (06/19/19) 351 (05/01/19) Corrected Calcium is above goal. Phosphorous is above goal. Intact PTH is at goal. Ob Scrub Tech will adjust binders and vitamin D per [...] Tolerating dialysis well, no changes to prescription Monitor Ca as above, may need low dose sensipar but would like to get phos controlled again first Monthly labs today Ernie Pompa MD [ Signed And locked electronically On 01/22/2020 at 09:03:05 AM ] Transcribed: Ernie Pompa ( 01/22/2020 ) documented in this encounter Plan of Treatment Not on filedocumented as of this encounter Visit Diagnoses Not on filedocumented in this encounter
--- OUTSIDE RECORDS SUMMARY | 2021-11-04 08:40 | XMS_ITS | Encounter Summary ---
:1945 Author Organization [facility] Address [address] [place] [address] Care Team Providers Name Role Phone Unavailable Primary Care Provider Unavailable Encounter Details Date Type Department Care Team Description 04/22/2020 [facility] O f Ernie Guzmán MD [address] [place] [address] [place], [place] [phone] (Wo rk) Social History Tobacco Use [...] / Volume Laterality 04/22/2020 04/23/2020 7:44 PM RETAIL SUPERVISOR Narrative [facility] - 04/25/2020 Unless otherwise specified, test(s) performed at: [facility], [address] [place] [address] SWITCH TECHNICIAN: Alec Payan M.D. For any questions, [...] / Volume Laterality 04/22/2020 04/23/2020 3:15 PM RETAIL SUPERVISOR Narrative [facility] - 04/24/2020 Unless otherwise specified, test(s) performed at: [facility], [address] [place] [address] SWITCH TECHNICIAN: Alec Payan M.D. For any questions, please call customer service at FREQUENCY:MONTHLY Resulting Agency Comment Specimen source: Blood Ernie Pompa MD LAB BLOOD ORDERABLES Performing Organization Address City/[facility] Phon e Number [facility] HD KINETICS (04/22/2020) P athologist Signature % Urea 79 65 - 80 % [facility] Reduction [facility] Specimen (Source) Anatomical Collection Method Collection Time Re ceived Time Location / / Volume Laterality 04/22/2020 04/23/2020 7:45 PM RETAIL SUPERVISOR Narrative [facility] - 04/24/2020 Unless otherwise specified, test(s) performed at: [facility], [address] [place] [address] SWITCH TECHNICIAN: Alec Payan M.D. For any questions, please call customer service at FREQUENCY:MONTHLY Resulting Agency Comment Specimen source: Serum Ernie Pompa MD LAB BLOOD ORDERABLES Performing Organization Address City/[facility] Code Phon e Number [facility]PS SPECTRA [facility] [...] / Volume Laterality 04/22/2020 04/23/2020 7:44 PM RETAIL SUPERVISOR Narrative [facility] - 04/24/2020 Unless otherwise specified, test(s) performed at: [facility], [address] [place] [address] SWITCH TECHNICIAN: Alec Payan M.D. For any questions, [...] / Volume Laterality 04/22/2020 04/23/2020 3:15 PM RETAIL SUPERVISOR Narrative [facility] - 04/24/2020 Unless otherwise specified, test(s) performed at: [facility], [address] [place] [address] SWITCH TECHNICIAN: Alec Payan M.D. For any questions, please call customer service at FREQUENCY:MONTHLY Resulting Agency Comment Specimen source: Plasma Ernie oPmpa MD LAB BLOOD ORDERABLES Performing Organization Address City/State/ZIP Code Phon e Number [facility] POST CHEMISTRY (04/22/2020) P athologist Signature BUN Post 13 6 - 19 [facility] Dialysis mg/dL [facility] Specimen (Source) Anatomical Collection Method Collection Time Re ceived Time Location / / Volume Laterality 04/22/2020 04/23/2020 2:14 PM RETAIL SUPERVISOR Narrative [facility] - 04/23/2020 Unless otherwise specified, test(s) performed at: [facility], [address] [place] [address] SWITCH TECHNICIAN: Alec Payan M.D. For any questions, please call customer service at FREQUENCY:MONTHLY Resulting Agency Comment Specimen source: Plasma Ernie Pompa MD LAB BLOOD ORDERABLES Performing Organization Address City/State/ZIP Code Phon e Number [facility] documented in this encounter Visit Diagnoses Not on filedocumented in this encounter
--- OUTSIDE RECORDS SUMMARY | 2021-11-04 08:40 | XMS_ITS | Encounter Summary ---
:1945 Author Organization [facility] Address [address] [place] [address] Care Team Providers Name Role Phone Unavailable Primary Care Provider Unavailable Encounter Details Date Type Department Care Team Description 12/04/2019 [facility] Only [facility] O f Ernie Guzmán MD [address] [place] [address] [place], [place] [phone] (Wo rk) Social History Tobacco Use [...] 12/05/2019 Unless otherwise specified, test(s) performed at: [facility], [address] [place] [address] CRYSTAL CALIBRATOR: Alec Payan M.D. For any questions, please [...] 12/05/2019 Unless otherwise specified, test(s) performed at: [facility], [address] [place] [address] CRYSTAL CALIBRATOR: Alec Payan M.D. For any questions, please call customer service at FREQUENCY:OTHER Resulting Agency Comment Specimen source: Blood Ernie Pompa MD LAB BLOOD ORDERABLES Performing Organization Address City/[facility] Code Phon e Number [facility]PS SPECTRA [facility] documented in this encounter Visit Diagnoses Not on filedocumented in this encounter
--- OUTSIDE RECORDS SUMMARY | 2021-11-04 08:40 | XMS_ITS | Encounter Summary ---
:1945 Author Organization [facility] Address [address] [place] [address] Care Team Providers Name Role Phone Unavailable Primary Care Provider Unavailable Encounter Details Date Type Department Care Team Description 01/22/2020 [facility] Only [facility] O f Ernie Guzmán MD [address] [place] [address] [place], [place] [phone] (Wo rk) Social History Tobacco Use [...] / Volume Laterality 01/22/2020 01/23/2020 8:20 PM ZIGZAG STITCHER Narrative APS SPECTRA [facility] - 01/24/2020 Unless otherwise specified, test(s) performed at: [facility], [address] [place], [place] [id number] SPANISH LANGUAGE LECTURER: Alec Payan M.D. For any questions, please [...] / Volume Laterality 01/22/2020 01/23/2020 8:13 PM ZIGZAG STITCHER Narrative [facility]PS S[facility]RA [facility] - 01/24/2020 Unless otherwise specified, test(s) performed at: [facility], [address] [place] [address] SPANISH LANGUAGE LECTURER: Alec Payan M.D. For any questions, please call customer service at FREQUENCY:MONTHLY Resulting Agency Comment Specimen source: Serum Ernie Pompa MD LAB BLOOD ORDERABLES Performing Organization Address City/[facility] Phon e Number [facility]PS SPECTRA [facility] HD KINETICS (01/22/2020) P athologist Signature % Urea 77 65 - 80 % APS SPECTRA Reduction [facility] Specimen (Source) Anatomical Collection Method Collection Time Re ceived Time Location / / Volume Laterality 01/22/2020 01/23/2020 8:14 PM ZIGZAG STITCHER Narrative [facility]PS S[facility]RA [facility] - 01/24/2020 Unless otherwise specified, test(s) performed at: [facility], [address] [place] [address] SPANISH LANGUAGE LECTURER: lAec Payan M.D. For any questions, please [...] / Volume Laterality 01/22/2020 01/23/2020 8:13 PM ZIGZAG STITCHER Narrative [facility]PS SPECTRA [facility] - 01/24/2020 Unless otherwise specified, test(s) performed at: [facility], [address] [place] [address] SPANISH LANGUAGE LECTURER: Alec Payan M.D. For any questions, please call customer service at FREQUENCY:MONTHLY Resulting Agency Comment Specimen source: Serum Ernie Pompa MD LAB BLOOD ORDERABLES Performing Organization Address City/[facility] Phon e Number [facility]PS S[facility]RA [facility] POST CHEMISTRY (01/22/2020) P athologist Signature BUN Post 16 6 - 19 APS SPECTRA Dialysis mg/dL [facility] Specimen (Source) Anatomical Collection Method Collection Time Re ceived Time Location / / Volume Laterality 01/22/2020 01/23/2020 1:17 PM ZIGZAG STITCHER Narrative [facility]PS [facility]RA [facility] - 01/23/2020 Unless otherwise specified, test(s) performed at: [facility], [address] [place] [address] SPANISH LANGUAGE LECTURER: Alec Payan M.D. For any questions, please call customer service at FREQUENCY:MONTHLY Resulting Agency Comment Specimen source: Plasma Ernie Pompa MD LAB BLOOD ORDERABLES Performing Organization Address City/[facility] Phon e Number APS SPECTRA [facility] documented in this encounter Visit Diagnoses Not on filedocumented in this encounter
--- OUTSIDE RECORDS SUMMARY | 2021-11-04 08:40 | XMS_ITS | Encounter Summary ---
:1945 Author Organization [facility] Address [address] [place] [address] Care Team Providers Name Role Phone Unavailable Primary Care Provider Unavailable Encounter Details Date Type Department Care Team Description 04/15/2020 Orders Only [facility] O f Ernie Guzmán MD [address] [place] [address] [place], [place] [phone] (Wo rk) Social History Tobacco Use [...] / Volume Laterality 04/15/2020 04/16/2020 9:36 AM BROACH GRINDER Narrative [facility]RA [facility] - 04/16/2020 Unless otherwise specified, test(s) performed at: [facility], [address] [place] [address] DESIGN PRINTING MACHINE SET UP OPERATOR: Alec Payan M.D. For any questions, please call customer service at FREQUENCY:OTHER Resulting Agency Comment Specimen source: Blood Ernie Pompa MD LAB BLOOD ORDERABLES Performing Organization Address City/State/ZIP Code Phon e Number [facility] documented in this encounter Visit Diagnoses Not on filedocumented in this encounter
--- OUTSIDE RECORDS SUMMARY | 2021-11-04 08:40 | XMS_ITS | Encounter Summary ---
:1945 Author Organization [facility] Address [address] [place] [address] Care Team Providers Name Role Phone Unavailable Primary Care Provider Unavailable Encounter Details Date Type Department Care Team Description 12/25/2019 Orders Only [facility] O f Ernie Guzmán MD [address] [place] [address] [place], [place] [phone] (Wo rk) Social History Tobacco Use [...] 12/27/2019 Unless otherwise specified, test(s) performed at: [facility], [address] [place] [address] SCRIBING MACHINE OPERATOR: Alec Payan M.D. For any questions, please call customer service at FREQUENCY:MONTHLY Resulting Agency Comment Specimen source: Plasma Ernie Pompa MD LAB BLOOD ORDERABLES Performing Organization Address City/[facility] Phon e Number [facility]PS [facility]RA [facility] IMMUNO CHEMISTRY (12/25/2019) P athologist Signature Hep B Surface Negative Negative APS SPECTRA Ag [facility] Specimen (Source) Anatomical Collection Method Collection Time Re ceived Time Location / / Volume Laterality 12/25/2019 12/26/2019 5:50 PM CDT Narrative [facility]PS [facility]RA [facility] - 12/27/2019 Unless otherwise specified, test(s) performed at: [facility], [address] [place] [address] SCRIBING MACHINE OPERATOR: Alec Payan M.D. For any questions, please call customer service at FREQUENCY:MONTHLY Resulting Agency Comment Specimen source: Serum Ernie Pompa MD LAB BLOOD ORDERABLES Performing Organization Address [facility] Phon e Number APS [...] 12/27/2019 Unless otherwise specified, test(s) performed at: [facility], [address] [place] [address] SCRIBING MACHINE OPERATOR: Alec Payan M.D. For any questions, please call customer service at FREQUENCY:MONTHLY Resulting Agency Comment Specimen source: Plasma Ernie Pompa MD LAB BLOOD ORDERABLES Performing Organization Address City/[facility] Phon e Number APS [...] 12/27/2019 Unless otherwise specified, test(s) performed at: [facility], [address] [place] [address] SCRIBING MACHINE OPERATOR: Alec Payan M.D. For any [...] 12/27/2019 Unless otherwise specified, test(s) performed at: [facility], [address] [place] [address] SCRIBING MACHINE OPERATOR: Alec Payan M.D. For any questions, please call customer service at FREQUENCY:MONTHLY Resulting Agency Comment Specimen source: Blood Ernie Pompa MD LAB BLOOD ORDERABLES Performing Organization Address City/[facility]/ZIP Code Phon e Number [facility]PS SPECTRA [facility] documented in this encounter Visit Diagnoses Not on filedocumented in this encounter
--- OUTSIDE RECORDS SUMMARY | 2021-11-04 08:40 | XMS_ITS | Encounter Summary ---
:1945 Author Organization [facility] Address [address] [place] [address] Care Team Providers Name Role Phone Unavailable Primary Care Provider Unavailable Encounter Details Date Type Department Care Team Description 02/19/2020 Treatment [facility] O Ernie Gómez MD [address] [place] [address] [place], [place] [address] [phone] (Wo rk) Social History Tobacco Use Types Packs/Day Years Used Date Smoking Tobacco: Unknown Comments: Smoking History Info:Patient n ot screened Sex Assigned at Date Recorded Not on file documented as of this encounter Miscellaneous Notes Dialysis Note - Ernie Pompa MD - 02/19/2020 10:37 AM CST Date: Feb 19, 2020 Patient Name: Shaun Ocampo : 1945 Chart #: [id number] Sex: M This patient was personally seen [...] AM ) BP (sit): 104/47 AP(-) / NURSE CHARGE RN: 260/215 Pulse: 84 Chairside data as of [...] Every 4 weeks During Dialysis 02/12/2020 02/10/2021 TAILINGS MAN: rEnie Pompa MD LOCATION: [facility] [phone] SCHEDULE: M-W-F 2nd Shift EDW: kg. DIALYZER: [...] He had infiltration last week, dialyzed at [facility] on Sat and went well, access [...] prescription. Vascular Access Assessment Type of access: [id number] Surgeon Annita KUMARW Access working well Anemia [...] above goal. Intact PTH is at goal. Tieing Machine Operator will adjust binders and vitamin [...]
--- OUTSIDE RECORDS SUMMARY | 2021-11-04 08:40 | XMS_ITS | Encounter Summary ---
:1945 Author Organization [facility] Address [address] [place] [address] Care Team Providers Name Role Phone Unavailable Primary Care Provider Unavailable Encounter Details Date Type Department Care Team Description 03/25/2020 Orders Only [facility] O f Ernie Guzmán MD [address] [place] [address] [place], [place] [phone] (Wo rk) Social History Tobacco Use [...] Volume Laterality 03/25/2020 03/27/2020 11:1 6 AM HOME HEALTH CARE PROVIDER Narrative APS SPECTRA [facility] - 03/30/2020 Unless otherwise specified, test(s) performed at: [facility], [address] [place] [address] CLAIMS ADJUSTOR: Alec Payan M.D. For any questions, please [...] and its performa nce characteristics determined by [facility]. It has not been cleared or approved by the FDA. The laboratory is regulated under CLIA a s qualified to perform high complexity testing. This test is used fo r clinical purposes. It should not be regarded as investigational or fo r research. Specimen (Source) Anatomical Collection Method Collection Time Re ceived Time Location / / Volume Laterality 03/25/2020 03/26/2020 6:29 PM HOME HEALTH CARE PROVIDER Narrative APS SPECTRA [facility] - 03/28/2020 Unless otherwise specified, test(s) performed at: [facility], [address] [place], [place] [id number] CLAIMS ADJUSTOR: Alec Payan M.D. For any questions, please call customer service at FREQUENCY:MONTHLY Resulting Agency Comment Specimen source: Serum Ernie Pompa MD LAB BLOOD ORDERABLES Performing Organization Address City/[facility]/ZIP Code Phon e Number APS SPECTRA [facility] IMMUNO CHEMISTRY (03/25/2020) P athologist Signature Hep B Surface Negative Negative APS SPECTRA Ag [facility] Specimen (Source) Anatomical Collection Method Collection Time Re ceived Time Location / / Volume Laterality 03/25/2020 03/27/2020 11:1 6 AM HOME HEALTH CARE PROVIDER Resulting Agency Comment Specimen source: Serum Ernie Leimario CAMPBELL LAB BLOOD ORDERABLES Performing Organization Address City/[facility]/ZIP Code Phon e Number APS SPECTRA [facility] HD KINETICS (03/25/2020) P athologist Signature % Urea 79 65 - 80 % APS SPECTRA Reduction [facility] Specimen (Source) Anatomical Collection Method Collection Time Re ceived Time Location / / Volume Laterality 03/25/2020 03/27/2020 11:1 7 AM HOME HEALTH CARE PROVIDER Resulting Agency Comment Specimen source: Serum Ernie Leimario CAMPBELL LAB BLOOD ORDERABLES Performing Organization Address City/[facility]/ZIP Code Phon e Number APS SPECTRA [facility] POST CHEMISTRY (03/25/2020) P athologist Signature BUN Post 12 6 - 19 APS SPECTRA Dialysis mg/dL [facility] Specimen (Source) Anatomical Collection Method Collection Time Re ceived Time Location / / Volume Laterality 03/25/2020 03/27/2020 10:5 5 AM HOME HEALTH CARE PROVIDER Narrative APS SPECTRA [facility] - 03/27/2020 Unless otherwise specified, test(s) performed at: [facility], [address] [place] [address] CLAIMS ADJUSTOR: Alec Payan M.D. For any questions, please call customer service at FREQUENCY:MONTHLY Resulting Agency Comment Specimen source: Plasma Ernie Pompa MD LAB BLOOD ORDERABLES Performing Organization Address City/State/ZIP Code Phon e Number APS SPECTRA [facility] (ABNORMAL) Spectrae Chemistry (03/25/2020) [facility] Method Time Signature BUN 58 (H) [...] Volume Laterality 03/25/2020 03/27/2020 11:1 6 AM HOME HEALTH CARE PROVIDER Narrative APS SPECTRA [facility] - 03/28/2020 Unless otherwise specified, test(s) performed at: [facility], [address] [place] [address] CLAIMS ADJUSTOR: Alec Payan M.D. For any questions, please call customer service at FREQUENCY:MONTHLY Resulting Agency Comment Specimen source: Serum Ernie Pompa MD LAB BLOOD ORDERABLES Performing Organization Address City/[facility] Phon e Number APS SPECTRA [facility] (ABNORMAL) Spectrae Chemistry (03/25/2020) P athologist Signature PTH 828 (H) 16 - 80 APS SPECTRA pg/mL [facility] Specimen (Source) Anatomical Collection Method Collection Time Re ceived Time Location / / Volume Laterality 03/25/2020 03/26/2020 5:05 PM HOME HEALTH CARE PROVIDER Narrative APS SPECTRA [facility] - 03/27/2020 Unless otherwise specified, test(s) performed at: [facility], [address] [place] [address] CLAIMS ADJUSTOR: Alec Payan M.D. For any questions, please call customer service at FREQUENCY:MONTHLY Resulting Agency Comment Specimen source: Plasma Ernie Pompa MD LAB BLOOD ORDERABLES Performing Organization Address City/[facility] Phon e Number APS SPECTRA [facility] (ABNORMAL) [...] / Volume Laterality 03/25/2020 03/26/2020 5:05 PM HOME HEALTH CARE PROVIDER Narrative APS SPECTRA [facility] - 03/26/2020 Unless otherwise specified, test(s) performed at: [facility], [address] [place] [address] CLAIMS ADJUSTOR: Alec Payan M.D. For any questions, please call customer service at FREQUENCY:MONTHLY Resulting Agency Comment Specimen source: Blood Ernie Pompa MD LAB BLOOD ORDERABLES Performing Organization Address City/State/ZIP Code Phon e Number APS SPECTRA [facility] documented in this encounter Visit Diagnoses Not on filedocumented in this encounter
--- OUTSIDE RECORDS SUMMARY | 2021-11-04 08:40 | XMS_ITS | Encounter Summary ---
:1945 Author Organization [facility] Address [address] [place] [address] Care Team Providers Name Role Phone Unavailable Primary Care Provider Unavailable Encounter Details Date Type Department Care Team Description 01/08/2020 Orders Only [facility] O f Ernie Guzmán MD [address] [place] [address] [place], [place] [phone] (Wo rk) Social History Tobacco Use [...] 01/09/2020 Unless otherwise specified, test(s) performed at: [facility], [address] [place] [address] ESTATE PLANNER: Alec Payan M.D. For any questions, please call customer service at FREQUENCY:OTHER Resulting Agency Comment Specimen source: Blood Ernie Pompa MD LAB BLOOD ORDERABLES Performing Organization Address City/State/ZIP Code Phon e Number APS SPECTRA [facility] documented in this encounter Visit Diagnoses Not on filedocumented in this encounter
--- OUTSIDE RECORDS SUMMARY | 2021-11-04 08:40 | XMS_ITS | Encounter Summary ---
:1945 Author Organization [facility] Address [address] [place] [address] Care Team Providers Name Role Phone Unavailable Primary Care Provider Unavailable Encounter Details Date Type Department Care Team Description 01/29/2020 Treatment [facility] O Ernie Gómez MD [address] [place] [address] [place], [place] [phone] (Wo rk) Social History Tobacco Use Types Packs/Day Years Used Date Smoking Tobacco: Unknown Comments: Smoking History Info:Patient n ot screened Sex Assigned at Date Recorded Not on file documented as of this encounter Miscellaneous Notes Dialysis Note - Ernie Pompa MD - 01/29/2020 9:56 AM CST Date: Jan 29, 2020 Patient Name: Shaun Ocampo : 1945 Chart #: [id number] Sex: M This patient was personally seen [...] AM ) BP (sit): 133/53 AP(-) / STATE EDITOR: 267/328 Pulse: 71 Chairside data as of [...] Every 2 weeks During Dialysis 01/22/2020 01/20/2021 INVENTORY ANALYST: Ernie Pompa MD LOCATION: [facility] [phone] SCHEDULE: M-W-F 2nd Shift ACCESS: EDW: kg. [...] without any issues and no cramping. 12/24: Shanu feels excellent and has no complaints. BP [...] He had infiltration last week, dialyzed at [facility] on Sat and went well, [...] (07/24/19) Vascular Access Assessment: Type of access: [id number] Surgeon - Lary GARDNER Access working well [...]
--- OUTSIDE RECORDS SUMMARY | 2021-11-04 08:40 | XMS_ITS | Encounter Summary ---
:1945 Author Organization [facility] Address [address] [place] [address] Care Team Providers Name Role Phone Unavailable Primary Care Provider Unavailable Encounter Details Date Type Department Care Team Description 02/12/2020 Orders Only [facility] O f Ernie Guzmán MD [address] [place] [address] [place], [place] [phone] (Wo rk) Social History Tobacco Use [...] Volume Laterality 02/12/2020 02/14/2020 12:5 9 PM PUBLIC SERVICE REPRESENTATIVE Narrative APS SPECTRA [facility] - 02/14/2020 Unless otherwise specified, test(s) performed at: [facility], [address] [place] [address] GROUND HAND: Alec Payan M.D. For any questions, please call customer service at FREQUENCY:OTHER Resulting Agency Comment Specimen source: Blood Ernie Pompa MD LAB BLOOD ORDERABLES Performing Organization Address City/State/ZIP Code Phon e Number APS SPECTRA [facility] documented in this encounter Visit Diagnoses Not on filedocumented in this encounter
--- OUTSIDE RECORDS SUMMARY | 2021-11-04 08:41 | XMS_ITS | Encounter Summary ---
:1945 Author Organization [facility] Address [address] [place] [address] Care Team Providers Name Role Phone Unavailable Primary Care Provider Unavailable Encounter Details Date Type Department Care Team Description 09/11/2019 Orders Only [facility] O f Ernie Guzmán MD [address] [place] [address] [place], [place] [phone] (Wo rk) Social History Tobacco Use [...] in this encounter Results (ABNORMAL) HEMATOLOGY (09/11/2019) [facility] gist Method Time Signature Neutrophils 73.8 [...] 09/13/2019 Unless otherwise specified, test(s) performed at: [facility], [address] [place] [address] TRUCK TERMINAL MANAGER: Alec Payan M.D. For any questions, please call customer service at FREQUENCY:OTHER Resulting Agency Comment Specimen source: Blood Ernie Pompa MD LAB BLOOD ORDERABLES Performing Organization Address City/State/ZIP Code Phon e Number APS SPECTRA [facility] documented in this encounter Visit Diagnoses Not on filedocumented in this encounter
--- OUTSIDE RECORDS SUMMARY | 2021-11-04 08:41 | XMS_ITS | Encounter Summary ---
:1945 Author Organization [facility] Address [address] [place] [address] Care Team Providers Name Role Phone Unavailable Primary Care Provider Unavailable Encounter Details Date Type Department Care Team Description 06/19/2019 Orders Only [facility] f Ernie Guzmán MD [phone] [place] [address] [place], [place] [phone] (Wo rk) Social History Tobacco Use [...] 06/21/2019 Unless otherwise specified, test(s) performed at: [facility], [address] [place] [address] CUSTOMER ACCOUNT REPRESENTATIVE: Alec Payan M.D. For [...] 06/21/2019 Unless otherwise specified, test(s) performed at: [facility], [address] [place] [address] CUSTOMER ACCOUNT REPRESENTATIVE: Alec Payan M.D. For any questions, please call customer service at FREQUENCY:MONTHLY Resulting Agency Comment Specimen source: Serum Ernie Pompa MD LAB BLOOD ORDERABLES Performing Organization Address [facility] Phon e Number APS SPECTRA [facility] (ABNORMAL) Spectrae Chemistry (06/19/2019) P athologist Signature PTH 199 (H) 16 - 80 APS SPECTRA pg/mL [facility] Specimen (Source) Anatomical Collection Method Collection Time Re ceived Time Location / / Volume Laterality 06/19/2019 06/20/2019 3:50 PM CDT Resulting Agency Comment Specimen source: Plasma Ernie Pompa MD LAB BLOOD ORDERABLES Performing Organization Address City/[facility] Code Phon e Number APS SPECTRA [...] 06/21/2019 Unless otherwise specified, test(s) performed at: [facility], [address] [place] [address] CUSTOMER ACCOUNT REPRESENTATIVE: Alec Payan M.D. For any questions, please call customer service at FREQUENCY:MONTHLY Resulting Agency Comment Specimen source: Blood Ernie Pompa MD LAB BLOOD ORDERABLES Performing Organization Address City/[facility] Phon e Number APS SPECTRA [facility] POST CHEMISTRY (06/19/2019) P athologist Signature BUN Post 13 6 - 19 APS SPECTRA Dialysis mg/dL [facility] Specimen (Source) Anatomical Collection Method Collection Time Re ceived Time Location / / Volume Laterality 06/19/2019 06/20/2019 5:07 PM CDT Narrative APS SPECTRA [facility] - 06/20/2019 Unless otherwise specified, test(s) performed at: [facility], [address] [place] [address] CUSTOMER ACCOUNT REPRESENTATIVE: Alec Payan M.D. For any questions, please call customer service at FREQUENCY:MONTHLY Resulting Agency Comment Specimen source: Plasma Ernie Pompa MD LAB BLOOD ORDERABLES Performing Organization Address City/[facility] Phon e Number APS SPECTRA [facility] documented in this encounter Visit Diagnoses Not on filedocumented in this encounter
--- OUTSIDE RECORDS SUMMARY | 2021-11-04 08:41 | XMS_ITS | Encounter Summary ---
:1945 Author Organization [facility] Address [address] [place] [address] Care Team Providers Name Role Phone Unavailable Primary Care Provider Unavailable Encounter Details Date Type Department Care Team Description 06/05/2019 Treatment [facility] f Ernie Guzmán MD [address] [place] [address] [place], [place] [phone] (Wo rk) Social History Tobacco Use Types Packs/Day Years Used Date Smoking Tobacco: Unknown Comments: Smoking History Info:Patient n ot screened Sex Assigned at Date Recorded Not on file documented as of this encounter Miscellaneous Notes Dialysis Note - Ernie Pompa MD - 06/05/2019 5:14 PM CDT Date: Jun 05, 2019 Patient Name: Shaun Ocampo : 1945 Chart #: [id number] Sex: M This patient was personally seen for a basic visit as part of routine weekly dialysis care. A reviewof the dialysis treatment, blood pressure, estimated dry weight and recent lab values was made. These were discussed with the patient and staff as necessary. PLASTERER TENDER: Ernie Pompa MD LOCATION: [phone] SCHEDULE: M-W-F 2nd Shift ACCESS: EDW: kg. [...] (05/01/19) Vascular Access Assessment: Type of access: [id number]/2019 Surgeon - Lary KUMARW Advanced needles to [...]
--- OUTSIDE RECORDS SUMMARY | 2021-11-04 08:41 | XMS_ITS | Encounter Summary ---
:1945 Author Organization [facility] Address [address] [place] [address] Care Team Providers Name Role Phone Unavailable Primary Care Provider Unavailable Encounter Details Date Type Department Care Team Description 10/09/2019 Treatment [facility] O Ernie Gómez MD [address] [place] [address] [place], [place] [phone] (Wo rk) Social History Tobacco Use Types Packs/Day Years Used Date Smoking Tobacco: Unknown Comments: Smoking History Info:Patient n ot screened Sex Assigned at Date Recorded Not on file documented as of this encounter Miscellaneous Notes Dialysis Note - Ernie Pompa MD - 10/09/2019 12:54 PM CDT Date: Oct 09, 2019 Patient Name: Shaun Ocampo : 1945 Chart #: [id number] Sex: M This patient was personally seen [...] PM ) BP (sit): 135/54 AP(-) / LIMO DRIVER: 204/180 Pulse: 65 Chairside data as of [...] 1000 units IVP Every Treatment 05/01/2019 04/29/2020 RESIDENT PROGRAM SPECIALIST: Ernie Pompa MD LOCATION: [phone] SCHEDULE: M-W- 2nd Shift ACCESS: EDW: kg. [...] He had infiltration last week, dialyzed at [facility] on Sat and went well, [...] (06/19/19) Vascular Access Assessment: Type of access: [id number]/2019 Surgeon - Lary GARDNER Access working well [...]
--- OUTSIDE RECORDS SUMMARY | 2021-11-04 08:41 | XMS_ITS | Encounter Summary ---
:1945 Author Organization [facility] Address [address] [place] [address] Care Team Providers Name Role Phone Unavailable Primary Care Provider Unavailable Encounter Details Date Type Department Care Team Description 11/06/2019 Treatment [facility] Ernie Gómez MD [address] [place] [address] [place], [place] [phone] (Wo rk) Social History Tobacco Use Types Packs/Day Years Used Date Smoking Tobacco: Unknown Comments: Smoking History Info:Patient n ot screened Sex Assigned at Date Recorded Not on file documented as of this encounter Miscellaneous Notes Dialysis Note - Ernie Pompa MD - 11/06/2019 12:22 PM CDT Date: Nov 06, 2019 Patient Name: Shaun Ocampo : 1945 Chart #: [id number] Sex: M This patient was personally seen [...] PM ) BP (sit): 139/63 AP(-) / DATA ARCHITECT: 235/181 Pulse: 64 Chairside data as of [...] IVP 1X Week During Dialysis 10/28/2019 10/19/2020 DUDE WRANGLER: Ernie Pompa MD LOCATION: [phone] SCHEDULE: M-W- 2nd Shift EDW: kg. DIALYZER: [...] had infiltration last week, dialyzed at [facility] on Sat and went well, access ok [...] prescription. Vascular Access Assessment Type of access: [id number]/2019 Surgeon - Lary KUMARW Access working well [...] above goal. Intact PTH is below goal. Carbonator will adjust binders and vitamin D per [...]
--- OUTSIDE RECORDS SUMMARY | 2021-11-04 08:41 | XMS_ITS | Encounter Summary ---
:1945 Author Organization [facility] Address [address] [place] [address] Care Team Providers Name Role Phone Unavailable Primary Care Provider Unavailable Encounter Details Date Type Department Care Team Description 10/23/2019 Orders Only [facility] f Ernie Gumzán MD [phone] [place] [address] [place], [place] [phone] (Wo rk) Social History Tobacco Use [...] 10/25/2019 Unless otherwise specified, test(s) performed at: [facility], [address] [place] [address] DEVELOPER SUPPORT ENGINEER: Alec Payan M.D. For any questions, please call customer service at FREQUENCY:MONTHLY Resulting Agency Comment Specimen source: Serum Ernie Pompa MD LAB BLOOD ORDERABLES Performing Organization Address City/State/ZIP Code Phon e Number APS SPECTRA [facility] (ABNORMAL) HEMATOLOGY (10/23/2019) [facility] gist Method Time Signature WBC 6.46 [...] 10/24/2019 Unless otherwise specified, test(s) performed at: [facility], [address] [place] [address] DEVELOPER SUPPORT ENGINEER: Alec Payan M.D. For any questions, please call customer service at FREQUENCY:MONTHLY Resulting Agency Comment Specimen source: Blood Ernie Pompa MD LAB BLOOD ORDERABLES Performing Organization Address City/State/ZIP Code Phon e Number APS SPECTRA [facility] documented in this encounter Visit Diagnoses Not on filedocumented in this encounter
--- OUTSIDE RECORDS SUMMARY | 2021-11-04 08:41 | XMS_ITS | Encounter Summary ---
:1945 Author Organization [facility] Address [address] [place] [address] Care Team Providers Name Role Phone Unavailable Primary Care Provider Unavailable Encounter Details Date Type Department Care Team Description 11/20/2019 Treatment [facility] Ernie Gómez MD [address] [place] [address] [place], [place] [phone] (Wo rk) Social History Tobacco Use Types Packs/Day Years Used Date Smoking Tobacco: Unknown Comments: Smoking History Info:Patient n ot screened Sex Assigned at Date Recorded Not on file documented as of this encounter Miscellaneous Notes Dialysis Note - Ernie Pompa MD - 11/20/2019 11:34 AM CDT Date: Nov 20, 2019 Patient Name: Shaun Ocampo : 1945 Chart #: [id number] Sex: M This patient was personally seen [...] AM ) BP (sit): 126/49 AP(-) / STOCK LETTERER: 230/186 Pulse: 64 Chairside data as of [...] 08/23/2019 Access Flow 1011 1591 > 2000 QUALIFICATION ENGINEER: Ernie Pmopa MD LOCATION: [place] [phone] SCHEDULE: -W- 2nd Shift EDW: kg. DIALYZER: [...] He had infiltration last week, dialyzed at [facility] on Sat and went well, access [...] prescription. Vascular Access Assessment Type of access: [id number]/2019 Surgeon - Lary GARDNER Access working well [...] above goal. Intact PTH is below goal. Dynamic Balancer Set Up Worker will adjust binders and vitamin D [...]
--- OUTSIDE RECORDS SUMMARY | 2021-11-04 08:41 | XMS_ITS | Encounter Summary ---
:1945 Author Organization [facility] Address [address] [place] [address] Care Team Providers Name Role Phone Unavailable Primary Care Provider Unavailable Encounter Details Date Type Department Care Team Description 09/25/2019 Treatment [facility] Ernie Gómez MD [address] [place] [address] [place], [place] [address] [phone] (Wo rk) Social History Tobacco Use Types Packs/Day Years Used Date Smoking Tobacco: Unknown Comments: Smoking History Info:Patient n ot screened Sex Assigned at Date Recorded Not on file documented as of this encounter Miscellaneous Notes Dialysis Note - Ernie Pompa MD - 09/25/2019 10:54 AM CDT Date: Sep 25, 2019 Patient Name: Shaun Ocampo : 1945 Chart #: [id number] Sex: M This patient was personally seen [...] AM ) BP (sit): 156/55 AP(-) / FUEL CELL TECHNICIAN: 212/172 Pulse: 63 Chairside data as of [...] 08/23/2019 08/02/2019 Access Flow > 2000 1510 QUICKBOOKS BOOKKEEPER: Ernie Pompa MD LOCATION: [place] [phone] SCHEDULE: -- 2nd Shift EDW: kg. DIALYZER: [...] prescription. Vascular Access Assessment Type of access: [id number]/2019 Surgeon Annita KUMARW Access working well Anemia [...] at goal. Intact PTH is below goal. Relief Operator will adjust binders and vitamin D [...]
--- OUTSIDE RECORDS SUMMARY | 2021-11-04 08:41 | XMS_ITS | Encounter Summary ---
:1945 Author Organization [facility] Address [address] [place] [address] Care Team Providers Name Role Phone Unavailable Primary Care Provider Unavailable Encounter Details Date Type Department Care Team Description 10/28/2019 Orders Only [facility] f Ernie Guzmán MD [address] [place] [address] [place], [place] [phone] (Wo rk) Social History Tobacco Use [...] MD LAB BLOOD ORDERABLES Performing Organization Address City/[facility] Phon e Number APS SPECTRA [facility] POST CHEMISTRY (10/28/2019) P athologist Signature BUN Post 13 6 - 19 APS SPECTRA Dialysis mg/dL [facility] Specimen (Source) Anatomical Collection Method Collection Time Re ceived Time Location / / Volume Laterality 10/28/2019 10/31/2019 3:11 PM CDT Narrative APS SPECTRA [facility] - 10/31/2019 Unless otherwise specified, test(s) performed at: [facility], [address] [place] [address] SUPERVISOR TELEPHONE ANSWERING SERVICE: Alec Payan M.D. For any questions, please call customer service at FREQUENCY:OTHER Resulting Agency Comment Specimen source: Plasma Ernie Pompa MD LAB BLOOD ORDERABLES Performing Organization Address [facility] Phon e Number APS SPECTRA [facility] (ABNORMAL) Spectrae Chemistry (10/28/2019) P athologist Signature BUN 54 (H) 6 - 19 APS SPECTRA mg/dL [facility] Specimen (Source) Anatomical Collection Method Collection Time Re ceived Time Location / / Volume Laterality 10/28/2019 10/29/2019 4:43 PM CDT Narrative APS SPECTRA [facility] - 10/29/2019 Unless otherwise specified, test(s) performed at: [facility], [address] [place] [address] SUPERVISOR TELEPHONE ANSWERING SERVICE: Alec Payan M.D. For any questions, please call customer service at FREQUENCY:OTHER Resulting Agency Comment Specimen source: Serum Ernie Pompa MD LAB BLOOD ORDERABLES Performing Organization Address [facility] Phon e Number APS SPECTRA [facility] documented in this encounter Visit Diagnoses Not on filedocumented in this encounter
--- OUTSIDE RECORDS SUMMARY | 2021-11-04 08:41 | XMS_ITS | Encounter Summary ---
:1945 Author Organization [facility] Address [address] [place] [address] Care Team Providers Name Role Phone Unavailable Primary Care Provider Unavailable Encounter Details Date Type Department Care Team Description 11/20/2019 Orders Only [facility] f Ernie Guzmán MD [address] [place] [address] [place], [place] [phone] (Wo rk) Social History Tobacco Use [...] MD LAB BLOOD ORDERABLES Performing Organization Address City/[facility]/ZIP Code Phon e Number APS SPECTRA [facility] POST CHEMISTRY (11/20/2019) athologist Signature BUN Post 12 6 - 19 APS SPECTRA Dialysis mg/dL [facility] Specimen (Source) Anatomical Collection Method Collection Time Re ceived Time Location / / Volume Laterality 11/20/2019 11/21/2019 1:14 PM CDT Narrative APS SPECTRA [facility] - 11/21/2019 Unless otherwise specified, test(s) performed at: [facility], [address] [place] [address] PERFORMANCE IMPROVEMENT SPECIALIST: Alec Payan M.D. For any questions, please call customer service at FREQUENCY:MONTHLY Resulting Agency Comment Specimen source: Plasma Ernie Pompa MD LAB BLOOD ORDERABLES Performing Organization Address City/[facility]/ZIP Code Phon e Number APS [...] APS SPECTRA [facility] (ABNORMAL) Spectrae Chemistry (11/20/2019) [facility] Method Time Signature BUN 51 (H) [...] 11/21/2019 Unless otherwise specified, test(s) performed at: [facility], [address] [place] [address] PERFORMANCE IMPROVEMENT SPECIALIST: Alec Payan M.D. For any questions, please call customer service at FREQUENCY:MONTHLY Resulting Agency Comment Specimen source: Serum Ernie Pompa MD LAB BLOOD ORDERABLES Performing Organization Address City/State/ZIP Code Phon e Number APS SPECTRA [facility] (ABNORMAL) HEMATOLOGY (11/20/2019) [facility] gist Method Time Signature WBC 6.23 4.80 [...] 11/21/2019 Unless otherwise specified, test(s) performed at: [facility], [address] [place] [address] PERFORMANCE IMPROVEMENT SPECIALIST: Alec Payan M.D. For any questions, please call customer service at FREQUENCY:MONTHLY Resulting Agency Comment Specimen source: Blood Ernie Pompa MD LAB BLOOD ORDERABLES Performing Organization Address City/State/ZIP Code Phon e Number APS SPECTRA [facility] documented in this encounter Visit Diagnoses Not on filedocumented in this encounter
--- OUTSIDE RECORDS SUMMARY | 2021-11-04 08:41 | XMS_ITS | Encounter Summary ---
:1945 Author Organization [facility] Address [address] [place] [address] Care Team Providers Name Role Phone Unavailable Primary Care Provider Unavailable Encounter Details Date Type Department Care Team Description 08/14/2019 Orders Only [facility] O f Ernie Guzmán MD [address] [place] [address] [place], [place] [phone] (Wo rk) Social History Tobacco Use [...] 08/16/2019 Unless otherwise specified, test(s) performed at: [facility], [address] [place] [address] RESPIRATORY CARE PROGRAM DIRECTOR: Alec Payan M.D. For any questions, please call customer service at FREQUENCY:OTHER Resulting Agency Comment Specimen source: Blood Ernie Pompa MD LAB BLOOD ORDERABLES Performing Organization Address City/State/ZIP Code Phon e Number APS SPECTRA [facility] documented in this encounter Visit Diagnoses Not on filedocumented in this encounter
--- OUTSIDE RECORDS SUMMARY | 2021-11-04 08:41 | XMS_ITS | Encounter Summary ---
:1945 Author Organization [facility] Address [address] [place] [address] Care Team Providers Name Role Phone Unavailable Primary Care Provider Unavailable Encounter Details Date Type Department Care Team Description 08/07/2019 Treatment [facility] f Ernie Guzmán MD [address] [place] [address] [place], [place] [phone] [phone] (Wo rk) Social History Tobacco Use Types Packs/Day Years Used Date Smoking Tobacco: Unknown Comments: Smoking History Info:Patient n ot screened Sex Assigned at Date Recorded Not on file documented as of this encounter Miscellaneous Notes Dialysis Note - Ernie Pompa MD - 08/07/2019 5:40 PM CDT Date: August 07, 2019 Patient Name: Shaun Ocampo : 1945 Chart #: [id number] Sex: M This patient was personally seen for a complete visit as part of routine monthly dialysis care. A review of the dialysis treatment, blood pressure, estimated dry weight and recent lab values was made. These were discussed with the patient and staff as necessary. PRODUCTION COST ESTIMATOR: Ernie Pompa MD LOCATION: [phone] SCHEDULE: M-W-F 2nd Shift EDW: kg. DIALYZER: HD DURATION: NEEDLE SIZE: ANTICOAG: BATH: QB: ml/min QD: ml/min Subjective Tolerating dialysis well. 08/06: patient seen in person today. He [...] - 1+ leg edema. improving but still significant, chronic stasis changes Access - AVF intact [...] mouth three times a week. MON- MON- FRI only Discontinue at home dose when supply [...] Treatment and Adequacy Assessment BUN mg/dL 29 (07/24/19) 35 (07/03/19) 35 (06/19/19) 28 (05/29/19) 30 (05/22/19) UREA NITROGEN (MG/DL) IN SER/PLAS - POST DIALYSIS mg/dL 9 (07/24/19) 10 (07/03/19) 13 (06/19/19) 10 (05/29/19) 13 (05/22/19) URR % 69 (07/24/19) 71 (07/03/19) 63 (06/19/19) 64 (05/29/19) 57 (05/22/19) spKt/V Gotch 1.37 (07/24/19) 1.48 (07/03/19) 1.16 (06/19/19) 1.22 (05/29/19) .97 (05/22/19) eKdrt/V 1.2 (07/24/19) 1.29 (07/03/19) 1.02 (06/19/19) 1.07 (05/29/19) .86 (05/22/19) spKt/V (Daugirdas II) 1.3500 (07/24/19) 1.4400 (07/03/19) 1.1400 (06/19/19) 1.1900 (05/29/19) 0.9500 (05/22/19) Dialysis is not adequate. Achieves prescribed time - Yes Achieves prescribed frequency - Yes Advance needles now to 14g and increase BFR 550 to try and improve adequacy Vascular Access Assessment Type of access: [id number]/2019 Surgeon - Lary GARDNER Access working well Anemia Assessment HEMOGLOBIN (G/DL) IN BLOOD g/dL 12.0 (07/31/19) 11.1 (07/24/19) 11.3 (07/17/19) 10.9 (07/10/19) 11.0 (07/03/19) PLATELETS 1000/mcL 218 (07/24/19) 218 (06/19/19) 223 (05/22/19) 104 (05/01/19) IRON SATURATION % 20 (07/24/19) 19 (06/19/19) 21 (05/22/19) 10 (05/01/19) FERRITIN ng/mL 200 (07/29/19) 134 (06/19/19) 252 (05/29/19) 105 (05/01/19) Hemoglobin is above goal. Iron Saturation is below goal. Ferritin is below goal. Will adjust NATALEE and intravenous iron per protocol. No NATALEE Nutritional and Metabolic Assessment ALBUMIN (G/DL) g/dL 3.2 (07/24/19) 3.4 (06/19/19) 3.3 (05/22/19) 3.4 (05/01/19) Sodium mEq/L 137 (07/24/19) 137 (06/19/19) 139 (05/22/19) 139 (05/01/19) POTASSIUM (MMOL/L) IN SER/PLAS mEq/L 4.8 (07/24/19) 4.4 (06/19/19) 3.8 (05/22/19) 4.5 (05/01/19) BICARBONATE (CO2) mEq/L 24 (07/24/19) 22 (06/19/19) 26 (05/22/19) 26 (05/01/19) 25 OH VITAMIN D ng/mL 44.4 (05/01/19) Albumin is below goal. Encourage high-biological value protein intake. Potassium is at goal. Bicarbonate is at goal. Continue same bicarbonate in dialysate. Bone and Mineral Metabolism Assessment Calcium mg/dL 10.0 (07/24/19) 9.9 (06/19/19) 9.9 (05/22/19) 9.5 (05/01/19) CALCIUM (MG/DL) CORRECTED FOR ALBUMIN IN SER/PLAS mg/dL 10.6 (07/24/19) 10.4 (06/19/19) 10.5 (05/22/19) 10.0 (05/01/19) PHOSPHATE (MG/DL) IN SER/PLAS mg/dL 3.5 (07/24/19) 3.9 (06/19/19) 3.4 (05/22/19) 4.4 (05/01/19) CALCIUM PHOSPHORUS PRODUCT, COR 37 (07/24/19) 41 (06/19/19) 36 (05/22/19) 44 (05/01/19) IPTH pg/mL 164 (07/24/19) 199 (06/19/19) 351 (05/01/19) Corrected Calcium is above goal. Phosphorous is at goal. Intact PTH is below goal. Senior Advisor will adjust binders and vitamin D per protocol and continue to provide dietary education. Decrease calcitriol, monitor Cardiovascular Assessment Blood pressures reviewed and are acceptable. Intradialytic weight gains are appropriate. Estimated dry weight is too high, will decrease. Decrease EDW today by 1 Kg and challenge every treatment Transplant Status: Patient is not a candidate. Weight, co-morbidities Resuscitation Status Tolerating dialysis well As above, advancing needles to 14g Continue to challenge EDW, still has edema Ernie Pompa MD [ Signed And locked electronically On 08/07/2019 at 05:44:39 PM ] Transcribed: Ernie Pompa ( 08/07/2019 ) documented in this encounter Plan of Treatment Not on filedocumented as of this encounter Visit Diagnoses Not on filedocumented in this encounter
--- OUTSIDE RECORDS SUMMARY | 2021-11-04 08:41 | XMS_ITS | Encounter Summary ---
:1945 Author Organization [facility] Address [address] [place] [address] Care Team Providers Name Role Phone Unavailable Primary Care Provider Unavailable Encounter Details Date Type Department Care Team Description 09/18/2019 Orders Only [facility] O f Ernie Guzmán MD [address] [place] [address] [place], [place] [phone] (Wo rk) Social History Tobacco Use [...] 09/20/2019 Unless otherwise specified, test(s) performed at: [facility], [address] [place] [address] SCRIPT SUPERVISOR: Alec Payan M.D. For any questions, please call customer service at FREQUENCY:MONTHLY Resulting Agency Comment Specimen source: Plasma Ernie Pompa MD LAB BLOOD ORDERABLES Performing Organization Address City/[facility]/ZIP Code Phon e Number APS [...] 09/19/2019 Unless otherwise specified, test(s) performed at: [facility], [address] [place], [place] [id number] SCRIPT SUPERVISOR: Alec Payan M.D. For any questions, please call customer service at FREQUENCY:MONTHLY Resulting Agency Comment Specimen source: Plasma Ernie Pompa MD LAB BLOOD ORDERABLES Performing Organization Address City/[facility]/ZIP Code Phon e Number [facility] IMMUNO CHEMISTRY (09/18/2019) athologist Signature Hep B Surface Negative Negative [facility] Ag [facility] Specimen (Source) Anatomical Collection Method Collection Time Re ceived Time Location / / Volume Laterality 09/18/2019 09/19/2019 2:37 PM CDT Resulting Agency Comment Specimen source: Serum Ernie Pompa MD LAB BLOOD ORDERABLES Performing Organization Address [facility] Code Phon e Number [facility]PS SPECTRA [facility] [...] BANK TEST ORDERABL ES Performing Organization Address City/[facility]/ZIP Code Phon e Number APS [...] 09/19/2019 Unless otherwise specified, test(s) performed at: [facility], [address] [place] [address] SCRIPT SUPERVISOR: Alec Payan M.D. For any questions, please call customer service at FREQUENCY:MONTHLY Resulting Agency Comment Specimen source: Serum Ernie Pompa MD LAB BLOOD ORDERABLES Performing Organization Address City/State/ZIP Code Phon e Number [facility]RA [facility] (ABNORMAL) HEMATOLOGY (09/18/2019) [facility] gist Method Time Signature WBC 5.19 4.80 [...] 09/19/2019 Unless otherwise specified, test(s) performed at: [facility], [address] [place] [address] SCRIPT SUPERVISOR: Alec Payan M.D. For any questions, please call customer service at FREQUENCY:MONTHLY Resulting Agency Comment Specimen source: Blood Ernie Pompa MD LAB BLOOD ORDERABLES Performing Organization Address City/State/ZIP Code Phon e Number [facility] documented in this encounter Visit Diagnoses Not on filedocumented in this encounter
--- OUTSIDE RECORDS SUMMARY | 2021-11-04 08:41 | XMS_ITS | Encounter Summary ---
:1945 Author Organization [facility] Address [address] [place] [address] Care Team Providers Name Role Phone Unavailable Primary Care Provider Unavailable Encounter Details Date Type Department Care Team Description 08/07/2019 Orders Only [facility] O f Ernie Guzmán MD [address] [place] [address] [place], [place] [phone] (Wo rk) Social History Tobacco Use [...] 08/08/2019 Unless otherwise specified, test(s) performed at: [facility], [address] [place] [address] INDUSTRIAL ORGANIZATION MANAGER: Alec Payan M.D. For any questions, please call customer service at FREQUENCY:OTHER Resulting Agency Comment Specimen source: Blood Ernie Pompa MD LAB BLOOD ORDERABLES Performing Organization Address City/State/ZIP Code Phon e Number [facility] documented in this encounter Visit Diagnoses Not on filedocumented in this encounter
--- OUTSIDE RECORDS SUMMARY | 2021-11-04 08:41 | XMS_ITS | Encounter Summary ---
:1945 Author Organization [facility] Address [address] [place] [address] Care Team Providers Name Role Phone Unavailable Primary Care Provider Unavailable Encounter Details Date Type Department Care Team Description 09/25/2019 Orders [facility] O f Ernie Guzmán MD [phone] [place] [address] [place], [place] [phone] (Wo rk) Social History Tobacco Use Types Packs/Day Years Used Date Smoking Tobacco: Unknown Comments: Smoking History Info:Patient n ot screened Sex Assigned at Date Recorded Not on file documented as of this encounter Plan of Treatment Not on filedocumented as of this encounter Procedures Procedure Name Priority Date/Time Associated Diagnosis Comme nts HEMATOLOGY Routine 09/25/2019 Results for thi s procedure are in the resu lts section. documented in this encounter Results (ABNORMAL) HEMATOLOGY (09/25/2019) [facility] gist Method Time Signature Neutrophils 74.2 40.0 - [facility]PS [facility]RA 75.0 % [facility] Lymphocytes 12.0 (L) 19.0 - [facility] Relative 48.0 % [facility] Monocytes 9.3 3.0 - 10.0 APS SPECT[facility] % [facility] Eosinophils 1.7 0.0 - 7.0 [facility] Relative % [facility] Basophils 0.3 0.0 - 1.5 [facility] Relative % [facility] YASMIN 2.5 0.0 - 4.0 APS SPECTRA % [facility] Hemoglobin 12.2 (L) 14.0 - [facility] 18.0 g/dL [facility] Hemoglobin x 3 36.6 (L) 42.0 - [facility]PS [facility]RA 54.0 % [facility] Specimen (Source) Anatomical Collection Method Collection Time Re ceived Time Location / / Volume Laterality 09/25/2019 09/26/2019 11:0 3 AM CDT Narrative [facility]RA [facility] - 09/26/2019 Unless otherwise specified, test(s) performed at: [facility], [address] [place], [place] [id number] NETWORK SYSTEMS ANALYST: Alec Payan M.D. For any questions, please call customer service at FREQUENCY:OTHER Resulting Agency Comment Specimen source: Blood Ernie Pompa MD LAB BLOOD ORDERABLES Performing Organization Address City/State/ZIP Code Phon e Number [facility]PS [facility]PECTRA [facility] documented in this encounter Visit Diagnoses Not on filedocumented in this encounter
--- OUTSIDE RECORDS SUMMARY | 2021-11-04 08:41 | XMS_ITS | Encounter Summary ---
:1945 Author Organization [facility] Address [address] [place] [address] Care Team Providers Name Role Phone Unavailable Primary Care Provider Unavailable Encounter Details Date Type Department Care Team Description 07/31/2019 Orders Only [facility] O f Ernie Guzmán MD [address] [place] [address] [place], [place] [phone] (Wo rk) Social History Tobacco Use [...] 08/01/2019 Unless otherwise specified, test(s) performed at: [facility], [address] [place] [address] MOLD SPRAYER: Alec Payan M.D. For any questions, please call customer service at FREQUENCY:OTHER Resulting Agency Comment Specimen source: Blood Ernie Pompa MD LAB BLOOD ORDERABLES Performing Organization Address City/State/ZIP Code Phon e Number [facility]PS SPECTRA [facility] documented in this encounter Visit Diagnoses Not on filedocumented in this encounter
--- OUTSIDE RECORDS SUMMARY | 2021-11-04 08:41 | XMS_ITS | Encounter Summary ---
:1945 Author Organization [facility] Address [address] [place] [address] Care Team Providers Name Role Phone Unavailable Primary Care Provider Unavailable Encounter Details Date Type Department Care Team Description 06/26/2019 Treatment [facility] f Ernie Guzmán MD [address] [place] [address] [place], [place] [address] [phone] (Wo rk) Social History Tobacco Use Types Packs/Day Years Used Date Smoking Tobacco: Unknown Comments: Smoking History Info:Patient n ot screened Sex Assigned at Date Recorded Not on file documented as of this encounter Miscellaneous Notes Dialysis Note - Ernie Pompa MD - 06/26/2019 12:47 PM CDT Date: Jun 26, 2019 Patient Name: Shaun Ocampo : 1945 Chart #: [id number] Sex: M This patient was personally seen [...] PM ) BP (sit): 146/80 AP(-) / MOISTURE TESTER: 248/209 Pulse: 79 Chairside data as of [...] 4:0 Actual Treatment Time 04:03 04:02 04:01 STONE SPLITTER: Ernie Pompa MD LOCATION: [place] [phone] SCHEDULE: -W- 2nd Shift EDW: kg. DIALYZER: [...] this. Vascular Access Assessment Type of access: [id number]/2019 Surgeon - Lary GARDNER Advanced needles to [...] at goal. Intact PTH is at goal. Mechanical Operator will adjust binders and vitamin D [...]
--- OUTSIDE RECORDS SUMMARY | 2021-11-04 08:41 | XMS_ITS | Encounter Summary ---
:1945 Author Organization [facility] Address [address] [place] [address] Care Team Providers Name Role Phone Unavailable Primary Care Provider Unavailable Encounter Details Date Type Department Care Team Description 10/16/2019 Orders [facility] O f Ernie Guzmán MD [address] [place] [address] [place], [place] [phone] (Wo rk) Social History Tobacco Use [...] in this encounter Results (ABNORMAL) HEMATOLOGY (10/16/2019) [facility] gist Method Time Signature Neutrophils 74.6 [...] 10/17/2019 Unless otherwise specified, test(s) performed at: [facility], [address] [place] [address] SLOT OPERATIONS DIRECTOR: Alec Payan M.D. For any questions, please call customer service at FREQUENCY:OTHER Resulting Agency Comment Specimen source: Blood Ernie Pompa MD LAB BLOOD ORDERABLES Performing Organization Address City/State/ZIP Code Phon e Number [facility]PS SPECTRA [facility] documented in this encounter Visit Diagnoses Not on filedocumented in this encounter
--- OUTSIDE RECORDS SUMMARY | 2021-11-04 08:41 | XMS_ITS | Encounter Summary ---
:1945 Author Organization [facility] Address [address] [place] [address] Care Team Providers Name Role Phone Unavailable Primary Care Provider Unavailable Encounter Details Date Type Department Care Team Description 06/26/2019 Orders Only [facility] O f Ernie Guzmán MD [address] [place] [address] [place], [place] [phone] (Wo rk) Social History Tobacco Use Types Packs/Day Years Used Date Smoking Tobacco: Unknown Comments: Smoking History Info:Patient n ot screened Sex Assigned at Date Recorded Not on file documented as of this encounter Plan of Treatment Not on filedocumented as of this encounter Procedures Procedure Name Priority Date/Time Associated Diagnosis Comme nts HEMATOLOGY Routine 06/26/2019 Results for thi s procedure are in the resu lts section. documented in this encounter Results (ABNORMAL) HEMATOLOGY (06/26/2019) Analysis Performed At [facility] logist Time Signature Hemoglobin 10.4 (L) 14.0 - [facility]RA 18.0 g/dL [facility] Hemoglobin x 3 31.2 (L) 42.0 - [facility] 54.0 % [facility] Specimen (Source) Anatomical Collection Method Collection Time Re ceived Time Location / / Volume Laterality 06/26/2019 06/27/2019 11:1 2 AM CDT Narrative [facility]PS SPECTRA [facility] - 06/27/2019 Unless otherwise specified, test(s) performed at: [facility], [address] [place] [address] COLLECTIONS ASSISTANT: Alec Payan M.D. For any questions, please call customer service at FREQUENCY:OTHER Resulting Agency Comment Specimen source: Blood Ernie Pompa MD LAB BLOOD ORDERABLES Performing Organization Address City/State/ZIP Code Phon e Number [facility]RA [facility] documented in this encounter Visit Diagnoses Not on filedocumented in this encounter
--- OUTSIDE RECORDS SUMMARY | 2021-11-04 08:41 | XMS_ITS | Encounter Summary ---
:1945 Author Organization [facility] Address [address] [place] [address] Care Team Providers Name Role Phone Unavailable Primary Care Provider Unavailable Encounter Details Date Type Department Care Team Description 11/13/2019 Orders [facility] O f Ernie Guzmán MD [address] [place] [address] [place], [place] [phone] (Wo rk) Social History Tobacco Use [...] 11/14/2019 Unless otherwise specified, test(s) performed at: [facility], [address] [place] [address] HOT WORT SETTLER: Alec Payan M.D. For any questions, please [...] 11/14/2019 Unless otherwise specified, test(s) performed at: [facility], [address] [place] [address] HOT WORT SETTLER: Alec Payan M.D. For any questions, please call customer service at FREQUENCY:OTHER Resulting Agency Comment Specimen source: Blood Ernie Pompa MD LAB BLOOD ORDERABLES Performing Organization Address City/[facility] Phon e Number APS SPECTRA [facility] documented in this encounter Visit Diagnoses Not on filedocumented in this encounter
--- OUTSIDE RECORDS SUMMARY | 2021-11-04 08:41 | XMS_ITS | Encounter Summary ---
:1945 Author Organization [facility] Address [address] [place] [address] Care Team Providers Name Role Phone Unavailable Primary Care Provider Unavailable Encounter Details Date Type Department Care Team Description 06/12/2019 Orders Only [facility] O f Ernie Guzmán MD [address] [place] [address] [place], [place] [phone] (Wo rk) Social History Tobacco Use [...] 06/13/2019 Unless otherwise specified, test(s) performed at: [facility], [address] [place] [address] CERTIFIED ADAPTED PHYSICAL EDUCATOR: Tawanna green M.D. For any questions, please call customer service at FREQUENCY:OTHER Resulting Agency Comment Specimen source: Blood Ernie Pompa MD LAB BLOOD ORDERABLES Performing Organization Address City/State/ZIP Code Phon e Number [facility]PS SPECTRA [facility] documented in this encounter Visit Diagnoses Not on filedocumented in this encounter
--- OUTSIDE RECORDS SUMMARY | 2021-11-04 08:41 | XMS_ITS | Encounter Summary ---
:1945 Author Organization [facility] Address [address] [place] [address] Care Team Providers Name Role Phone Unavailable Primary Care Provider Unavailable Encounter Details Date Type Department Care Team Description 11/04/2019 Orders Only [facility] O f Ernie Guzmán MD [address] [place] [address] [place], [place] [phone] (Wo rk) Social History Tobacco Use [...] in this encounter Results (ABNORMAL) HEMATOLOGY (11/04/2019) [facility] gist Method Time Signature Neutrophils 77.4 [...] 11/05/2019 Unless otherwise specified, test(s) performed at: [facility], [address] [place] [address] CUSTOMER EQUIPMENT ENGINEER: Alec Payan M.D. For any questions, please call customer service at FREQUENCY:OTHER Resulting Agency Comment Specimen source: Blood Ernie Pompa MD LAB BLOOD ORDERABLES Performing Organization Address City/State/ZIP Code Phon e Number [facility]PS SPECTRA [facility] documented in this encounter Visit Diagnoses Not on filedocumented in this encounter
--- OUTSIDE RECORDS SUMMARY | 2021-11-04 08:41 | XMS_ITS | Encounter Summary ---
:1945 Author Organization [facility] Address [address] [place] [address] Care Team Providers Name Role Phone Unavailable Primary Care Provider Unavailable Encounter Details Date Type Department Care Team Description 09/11/2019 Treatment [facility] O Ernie Gómez MD [address] [place] [address] [place], [place] [phone] (Wo rk) Social History Tobacco Use Types Packs/Day Years Used Date Smoking Tobacco: Unknown Comments: Smoking History Info:Patient n ot screened Sex Assigned at Date Recorded Not on file documented as of this encounter Miscellaneous Notes Dialysis Note - Ernie Pompa MD - 09/11/2019 12:23 PM CDT Date: Sep 11, 2019 Patient Name: Shaun Ocampo : 1945 Chart #: [id number] Sex: M This patient was personally seen for a basic visit as part of routine weekly dialysis care. A reviewof the dialysis treatment, blood pressure, estimated dry weight and recent lab values was made. These were discussed with the patient and staff as necessary. Treatment Data for 09/11/2019 started at:11:01 AM Dialyzer: 180NRe Optiflux Na: 138 mEq/L Bicarb: 26 mEq/L Dialysate: 3.0 K, 2.25 Ca, 1.0 Mg, 100 Dextrose (G3231) Dialysate/Machine Temp (prescribed): 37 C Dialysate/Machine Temp (actual): 36.9 C BFR (prescribed): 550 BFR (actual): 550 Prescribed time: 4:0 EDW: 114.2 kg Access Type: Active (In Use):AVFistula-Standard/Left Upper Arm Pre Dialysis Vitals (for 09/11/2019 11:01 AM ) Pre BP (sit): 154/68 Pre Wt: 116.1 kg Temp: 97.9 F Post Dialysis Vitals (for 09/09/2019 2:50 PM ) Post BP (sit): 152/73 Post Wt: 113.8 kg Current Dialysis Vitals (for 09/11/2019 12:08 PM ) BP (sit): 149/59 AP(-) / MEDICAL RECORDS ASSISTANT: 209/174 Pulse: 66 Chairside data as of 09/11/2019 12:08 PM Last 3 Treatments 09/09/2019 09/06/2019 09/04/2019 EDW (kg) 114.2 115.2 116 Weight Pre (kg) 117.8 117.9 119.1 Weight Post (kg) 113.8 114.2 115.2 Dialytic Weight Loss (kg) -4 -3.7 -3.9 EDW Deviation (kg) -0.4 -1.0 -0.8 BP Sit Pre 187/71 165/72 159/77 BP Sit Post 152/73 137/72 154/63 UF Rate (mL/kg/hr) 9 8 8 Prescribed BFR 550 550 550 Average Delivered BFR 550 550 500 Prescribed Treatment Time 4:0 4:0 4:0 Actual Treatment Time 04:01 04:03 04:03 Last 2 Values 08/23/2019 08/02/2019 Access Flow > 2000 1510 YOGA TEACHER: Ernie Pompa MD LOCATION: [place] [phone] SCHEDULE: -- 2nd Shift ACCESS: EDW: kg. DIALYZER: HD DURATION: NEEDLE SIZE: ANTICOAG: BATH: QB: ml/min QD: ml/min Subjective Tolerating dialysis well. 09/10: He has lost over 50 lbs [...] 1+ leg edema. with chronic venous stasis changes, improving edema Access - AVF intact with needles in [...] and no changes were made. BUN mg/dL 40 (08/21/19) 29 (07/24/19) 35 [...] (07/24/19) 1.4400 (07/03/19) 1.1400 (06/19/19) 1.1900 (05/29/19) HEMOGLOBIN (G/DL) IN BLOOD g/dL 11.1 (09/04/19) 11.3 (08/28/19) 11.3 (08/21/19) 12.0 (08/14/19) 12.0 (08/07/19) PLATELETS 1000/mcL 208 (08/21/19) 218 (07/24/19) 218 (06/19/19) 223 (05/22/19) 104 (05/01/19) IRON SATURATION % 24 (08/21/19) 20 (07/24/19) 19 (06/19/19) 21 (05/22/19) 10 (05/01/19) FERRITIN ng/mL 200 (07/29/19) 134 (06/19/19) 252 (05/29/19) 105 (05/01/19) ALBUMIN (G/DL) g/dL 3.2 (08/21/19) 3.2 (07/24/19) 3.4 (06/19/19) Sodium mEq/L 137 (08/21/19) 137 (07/24/19) 137 (06/19/19) POTASSIUM (MMOL/L) IN SER/PLAS mEq/L 3.8 (08/21/19) 4.8 (07/24/19) 4.4 (06/19/19) BICARBONATE (CO2) mEq/L 27 (08/21/19) 24 (07/24/19) 22 (06/19/19) 25 OH VITAMIN D ng/mL 44.4 (05/01/19) BUN/CREATININE (MASS RATIO) IN SER/PLAS 12.1 (08/21/19) 9.4 (07/24/19) 11.3 (06/19/19) Calcium mg/dL 9.7 (08/21/19) 10.0 (07/24/19) 9.9 (06/19/19) Calcium Phos Product 34 (08/21/19) 35 (07/24/19) 39 (06/19/19) CALCIUM (MG/DL) CORRECTED FOR ALBUMIN IN SER/PLAS mg/dL 10.3 (08/21/19) 10.6 (07/24/19) 10.4 (06/19/19) PHOSPHATE (MG/DL) IN SER/PLAS mg/dL 3.5 (08/21/19) 3.5 (07/24/19) 3.9 (06/19/19) IPTH pg/mL 164 (07/24/19) 199 (06/19/19) 351 (05/01/19) Vascular Access Assessment: Type of access: [id number]/[email or web address] Surgeon - Lary GARDNER Access working well Impression and Plan Continue to challenge EDW, but now by 1 Kg per week instead of 1 Kg per treatment as getting closer to dry weight by exam He is now adequate with 14g needles, no change to prescription Ernie Pompa MD [ Signed And locked electronically On 09/11/2019 at 12:25:30 PM ] Transcribed: Ernie Pompa ( 09/11/2019 ) documented in this encounter Plan of Treatment Not on filedocumented as of this encounter Visit Diagnoses Not on filedocumented in this encounter
--- OUTSIDE RECORDS SUMMARY | 2021-11-04 08:41 | XMS_ITS | Encounter Summary ---
:1945 Author Organization [facility] Address [address] [place] [address] Care Team Providers Name Role Phone Unavailable Primary Care Provider Unavailable Encounter Details Date Type Department Care Team Description 07/10/2019 Treatment [facility] O Ernie Gómez MD [address] [place] [address] [place], [place] [phone] [phone] (Wo rk) Social History Tobacco Use Types Packs/Day Years Used Date Smoking Tobacco: Unknown Comments: Smoking History Info:Patient n ot screened Sex Assigned at Date Recorded Not on file documented as of this encounter Miscellaneous Notes Dialysis Note - Ernie Pompa MD - 07/10/2019 11:42 AM CDT Date: Jul 10, 2019 Patient Name: Shaun Ocampo : 1945 Chart #: [id number] Sex: M This patient was personally seen [...] AM ) BP (sit): 136/58 AP(-) / THRESHING DEPARTMENT SUPERVISOR: n/a Pulse: 76 Chairside data as of [...] 4:0 Actual Treatment Time 04:04 04:02 04:04 SALES OPERATIONS LEAD: Ernie Pompa MD LOCATION: [place] [phone] SCHEDULE: M-W- 2nd Shift ACCESS: EDW: kg. [...] (05/01/19) Vascular Access Assessment: Type of access: [id number]/2019 Surgeon - Lary GARDNER Advanced needles to [...]
--- OUTSIDE RECORDS SUMMARY | 2021-11-04 08:41 | XMS_ITS | Encounter Summary ---
:1945 Author Organization [facility] Address [address] [place] [address] Care Team Providers Name Role Phone Unavailable Primary Care Provider Unavailable Encounter Details Date Type Department Care Team Description 07/29/2019 Orders Only [facility] O f Ernie Guzmán MD [address] [place] [address] [place], [place] [phone] (Wo rk) Social History Tobacco Use [...] 07/30/2019 Unless otherwise specified, test(s) performed at: [facility], [address] [place] [address] HADOOP DEVELOPER: Alec Payan M.D. For any questions, please call customer service at FREQUENCY:OTHER Resulting Agency Comment Specimen source: Serum Ernie Pompa MD LAB BLOOD ORDERABLES Performing Organization Address City/State/ZIP Code Phon e Number [facility] documented in this encounter Visit Diagnoses Not on filedocumented in this encounter
--- OUTSIDE RECORDS SUMMARY | 2021-11-04 08:41 | XMS_ITS | Encounter Summary ---
:1945 Author Organization [facility] Address [address] [place] [address] Care Team Providers Name Role Phone Unavailable Primary Care Provider Unavailable Encounter Details Date Type Department Care Team Description 08/28/2019 Orders [facility] O f Ernie Guzmán MD [address] [place] [address] [place], [place] [phone] (Wo rk) Social History Tobacco Use [...] 08/29/2019 Unless otherwise specified, test(s) performed at: [facility], [address] [place] [address] SAP BASIS ARCHITECT: Alec Payan M.D. For any questions, please call customer service at FREQUENCY:OTHER Resulting Agency Comment Specimen source: Blood Ernie Pompa MD LAB BLOOD ORDERABLES Performing Organization Address City/State/ZIP Code Phon e Number [facility]PS SPECTRA [facility] documented in this encounter Visit Diagnoses Not on filedocumented in this encounter
--- OUTSIDE RECORDS SUMMARY | 2021-11-04 08:41 | XMS_ITS | Encounter Summary ---
:1945 Author Organization [facility] Address [address] [place] [address] Care Team Providers Name Role Phone Unavailable Primary Care Provider Unavailable Encounter Details Date Type Department Care Team Description 11/06/2019 [facility] Only [facility] O f Ernie Guzmán MD [phone] [place] [address] [place], [place] [phone] (Wo rk) Social History Tobacco Use Types Packs/Day Years Used Date Smoking Tobacco: Unknown Comments: Smoking History Info:Patient n ot screened Sex Assigned at Date Recorded Not on file documented as of this encounter Plan of Treatment Not on filedocumented as of this encounter Procedures Procedure Name Priority Date/Time Associated Diagnosis Comme nts HEMATOLOGY Routine 11/06/2019 Results for thi s procedure are in the resu lts section. documented in this encounter Results (ABNORMAL) HEMATOLOGY (11/06/2019) [facility] gist Method Time Signature Neutrophils 75.2 (H) 40.0 - APS SPECTRA 75.0 % [facility] Lymphocytes 10.8 (L) 19.0 - APS [facility] Relative 48.0 % [facility] Monocytes 9.7 3.0 - 10.0 APS SPECTRA % [facility] Eosinophils 1.6 0.0 - 7.0 APS SPECTRA Relative % [facility] Basophils 0.5 0.0 - 1.5 APS [facility] Relative % [facility] YASMIN 2.2 0.0 - 4.0 APS SPECTRA % [facility] Hemoglobin 10.5 (L) 14.0 - APS [facility]RA 18.0 g/dL [facility] Hemoglobin x 3 31.5 (L) 42.0 - APS SPECTRA 54.0 % [facility] Specimen (Source) Anatomical Collection Method Collection Time Re ceived Time Location / / Volume Laterality 11/06/2019 11/07/2019 4:36 PM CDT Narrative APS SPECTRA [facility] - 11/07/2019 Unless otherwise specified, test(s) performed at: [facility], [address] [place] [address] RN PROGRESSIVE CARE UNIT: Alec Payan M.D. For any questions, please call customer service at FREQUENCY:OTHER Resulting Agency Comment Specimen source: Blood Ernie Pompa MD LAB BLOOD ORDERABLES Performing Organization Address City/State/ZIP Code Phon e Number APS SPECTRA [facility] documented in this encounter Visit Diagnoses Not on filedocumented in this encounter
--- OUTSIDE RECORDS SUMMARY | 2021-11-04 08:41 | XMS_ITS | Encounter Summary ---
:1945 Author Organization [facility] Address [address] [place] [address] Care Team Providers Name Role Phone Unavailable Primary Care Provider Unavailable Encounter Details Date Type Department Care Team Description 07/24/2019 [facility] O f Ernie Guzmán MD [phone] [place] [address] [place], [place] [phone] (Wo rk) Social History Tobacco Use [...] Provider LAB BLOOD ORDERABLES Performing Organization Address [facility] Phon e Number KAMERON (ABNORMAL) Spectrae Chemistry (07/24/2019) P athologist Signature PTH 164 (H) 16 - 80 APS [facility]PECTRA pg/mL [facility] Specimen (Source) Anatomical Collection Method Collection Time Re ceived Time Location / / Volume Laterality 07/24/2019 07/25/2019 6:44 PM CDT Narrative APS SPECTRA [facility] - 07/26/2019 Unless otherwise specified, test(s) performed at: [facility], [address] [place] [address] WATCH LEADER: Alec Payan M.D. For any questions, please call customer service at FREQUENCY:MONTHLY Resulting Agency Comment Specimen source: Plasma Ernie Pompa MD LAB BLOOD ORDERABLES Performing Organization Address [facility] Phon e Number APS SPECTRA [facility] HD KINETICS (07/24/2019) P athologist Signature % Urea 69 65 - 80 % [facility]PS [facility]PECTRA Reduction [facility] Specimen (Source) Anatomical Collection Method Collection Time Re ceived Time Location / / Volume Laterality 07/24/2019 07/25/2019 7:05 PM CDT Narrative APS SPECTRA [facility] - 07/26/2019 Unless otherwise specified, test(s) performed at: [facility], [address] [place] [address] WATCH LEADER: Alec Payan M.D. For any questions, please call customer service at FREQUENCY:MONTHLY Resulting Agency Comment Specimen source: Plasma Ernie Pompa MD LAB BLOOD ORDERABLES Performing Organization Address [facility] Phon e Number APS [...] 07/26/2019 Unless otherwise specified, test(s) performed at: [facility], [address] [place] [address] WATCH LEADER: Alec Payan M.D. For any questions, please [...] 07/25/2019 Unless otherwise specified, test(s) performed at: [facility], [address] [place], [place] [id number] WATCH LEADER: Alec Payan M.D. For any questions, please call customer service at FREQUENCY:MONTHLY Resulting Agency Comment Specimen source: Plasma Ernie Pompa MD LAB BLOOD ORDERABLES Performing Organization Address City/[facility] Phon e Number APS [...] 07/25/2019 Unless otherwise specified, test(s) performed at: [facility], [address] [place], [place] [id number] WATCH LEADER: Alec Payan M.D. For any questions, please call customer service at FREQUENCY:MONTHLY Resulting Agency Comment Specimen source: Blood Ernie Pompa MD LAB BLOOD ORDERABLES Performing Organization Address City/State/ZIP Code Phon e Number APS SPECTRA [facility] documented in this encounter Visit Diagnoses Not on filedocumented in this encounter
--- OUTSIDE RECORDS SUMMARY | 2021-11-04 08:41 | XMS_ITS | Encounter Summary ---
:1945 Author Organization [facility] Address [address] [place] [address] Care Team Providers Name Role Phone Unavailable Primary Care Provider Unavailable Encounter Details Date Type Department Care Team Description 07/17/2019 [facility] Only [facility] O f Ernie Guzmán MD [phone] [place] [address] [place], [place] [phone] (Wo rk) Social History Tobacco Use [...] 07/18/2019 Unless otherwise specified, test(s) performed at: [facility], [address] [place] [address] FORMAL SERVICE WAITER: Alec Payan M.D. For any questions, please call customer service at FREQUENCY:OTHER Resulting Agency Comment Specimen source: Blood Ernie Pompa MD LAB BLOOD ORDERABLES Performing Organization Address City/State/ZIP Code Phon e Number APS SPECTRA [facility] documented in this encounter Visit Diagnoses Not on filedocumented in this encounter
--- OUTSIDE RECORDS SUMMARY | 2021-11-04 08:41 | XMS_ITS | Encounter Summary ---
:1945 Author Organization [facility] Address [address] [place] [address] Care Team Providers Name Role Phone Unavailable Primary Care Provider Unavailable Encounter Details Date Type Department Care Team Description 10/09/2019 [facility] Only [facility] O f Ernie Guzmán MD [phone] [place] [address] [place], [place] [phone] (Wo rk) Social History Tobacco Use Types Packs/Day Years Used Date Smoking Tobacco: Unknown Comments: Smoking History Info:Patient n ot screened Sex Assigned at Date Recorded Not on file documented as of this encounter Plan of Treatment Not on filedocumented as of this encounter Procedures Procedure Name Priority Date/Time Associated Diagnosis Comme nts HEMATOLOGY Routine 10/09/2019 Results for thi s procedure are in the resu lts section. CHEMISTRY Routine 10/09/2019 Results for thi s procedure are in the resu lts section. documented in this encounter Results Spectrae Chemistry (10/09/2019) P athologist Signature Calcium 9.7 8.4 - 10.2 APS SPECTRA mg/dL [facility] Specimen (Source) Anatomical Collection Method Collection Time Re ceived Time Location / / Volume Laterality 10/09/2019 10/10/2019 12:5 0 PM CDT Narrative APS SPECTRA [facility] - 10/10/2019 Unless otherwise specified, test(s) performed at: [facility], [address] [place] [address] CORK MIXER: Alec Payan M.D. For any questions, please call customer service at FREQUENCY:OTHER Resulting Agency Comment Specimen source: Serum Ernie Pompa MD LAB BLOOD ORDERABLES Performing Organization Address City/State/[facility] Code Phon e Number APS SPECTRA [facility] (ABNORMAL) HEMATOLOGY (10/09/2019) Patholo gist Method Time Signature Neutrophils 76.1 (H) 40.0 - APS SPECTRA 75.0 % [facility] Lymphocytes 10.8 (L) 19.0 - [facility] Relative 48.0 % [facility] Monocytes 8.4 3.0 - 10.0 APS SPECTRA % [facility] Eosinophils 1.5 0.0 - 7.0 APS [facility] Relative % [facility] Basophils 0.5 0.0 - 1.5 [facility] Relative % [facility] YASMIN 2.7 0.0 - 4.0 APS SPECTRA % [facility] Hemoglobin 11.2 (L) 14.0 - APS SPECTRA 18.0 g/dL [facility] Hemoglobin x 3 33.6 (L) 42.0 - APS SPECTRA 54.0 % [facility] Specimen (Source) Anatomical Collection Method Collection Time Re ceived Time Location / / Volume Laterality 10/09/2019 10/10/2019 9:02 AM CDT Narrative APS SPECTRA [facility] - 10/10/2019 Unless otherwise specified, test(s) performed at: [facility], [address] [place] [address] CORK MIXER: Alec Payan M.D. For any questions, please call customer service at FREQUENCY:OTHER Resulting Agency Comment Specimen source: Blood Ernie Pompa MD LAB BLOOD ORDERABLES Performing Organization Address City/[facility] Code Phon e Number APS SPECTRA [facility] documented in this encounter Visit Diagnoses Not on filedocumented in this encounter
--- OUTSIDE RECORDS SUMMARY | 2021-11-04 08:41 | XMS_ITS | Encounter Summary ---
:1945 Author Organization [facility] Address [address] [place] [address] Care Team Providers Name Role Phone Unavailable Primary Care Provider Unavailable Encounter Details Date Type Department Care Team Description 08/21/2019 Orders Only [facility] O f Ernie Guzmán MD [address] [place] [address] [place], [place] [phone] (Wo rk) Social History Tobacco Use Types Packs/Day Years Used Date Smoking Tobacco: Unknown Comments: Smoking History Info:Patient n ot screened Sex Assigned at Date Recorded Not on file documented as of this encounter Plan of Treatment Not on filedocumented as of this encounter Procedures Procedure Name Priority Date/Time Associated Diagnosis Comme nts HD KINETICS Routine 08/21/2019 Results for thi s procedure are i n the results section . POST CHEMISTRY Routine 08/21/2019 Results for t his procedure are i n the results section . IMMUNO CHEMISTRY Routine 08/21/2019 Results for this procedure are i n the results section . HEMATOLOGY Routine 08/21/2019 Results for thi s procedure are i n the results section . CHEMISTRY Routine 08/21/2019 Results for thi s procedure are i n the results section . SPECTRA KAMERON LAB RESULTS Routine 08/21/2019 Resul ts for this procedure are i n the results section . documented in this encounter Results Spectra KAMERON Lab Results (08/21/2019) P athologist Signature spKt/V 1.60 KAMERON (Daugirdas II) nPCR_HD 0.77 KAMERON eKt/V 1.40 KAMERON ([place]) eNPCR 0.73 KAMERON eKt/V Gotch 1.42 KAMERON eKdrt/V 1.42 KAMERON spKt/V Gotch 1.63 KAMERON PCR 68.86 KAMERON Specimen (Source) Anatomical Location Collection Method / Collectio n Time Received Time / Laterality Volume 08/21/2019 08/21/2019 K[facility]on Ordering Provider LAB BLOOD ORDERABLES Performing Organization Address City/State/ZIP Code Phon e Number KAMERON IMMUNO CHEMISTRY (08/21/2019) P athologist Signature Hep B Surface Negative Negative APS SPECTRA Ag [facility] Specimen (Source) Anatomical Collection Method Collection Time Re ceived Time Location / / Volume Laterality 08/21/2019 08/22/2019 8:20 PM CDT Narrative APS SPECTRA [facility] - 08/23/2019 Unless otherwise specified, test(s) performed at: [facility], [address] [place], [place] [id number] EXPANDED FUNCTION DENTAL ASSISTANT: Alec Payan M.D. For any questions, please call customer service at FREQUENCY:MONTHLY Resulting Agency Comment Specimen source: Serum Ernie Pompa MD LAB BLOOD ORDERABLES Performing Organization Address City/[facility]/ZIP Code Phon e Number APS SPECTRA [facility] HD KINETICS (08/21/2019) P athologist Signature % Urea 75 65 - 80 % APS SPECTRA Reduction [facility] Specimen (Source) Anatomical Collection Method Collection Time Re ceived Time Location / / Volume Laterality 08/21/2019 08/22/2019 9:07 PM CDT Resulting Agency Comment Specimen source: Plasma Ernie Pompa MD LAB BLOOD ORDERABLES Performing Organization Address City/[facility]/ZIP Code Phon e Number APS SPECTRA [facility] POST CHEMISTRY (08/21/2019) P athologist Signature BUN Post 10 6 - 19 APS SPECTRA Dialysis mg/dL [facility] Specimen (Source) Anatomical Collection Method Collection Time Re ceived Time Location / / Volume Laterality 08/21/2019 08/22/2019 9:06 PM CDT Narrative APS SPECTRA [facility] - 08/23/2019 Unless otherwise specified, test(s) performed at: [facility], [address] [place] [address] EXPANDED FUNCTION DENTAL ASSISTANT: Alec Payan M.D. For any questions, please call customer service at FREQUENCY:MONTHLY Resulting Agency Comment Specimen source: Plasma Ernie Pompa MD LAB BLOOD ORDERABLES Performing Organization Address City/State/ZIP Code Phon e Number APS SPECTRA [facility] (ABNORMAL) Spectrae Chemistry (08/21/2019) [facility] Method Time Signature BUN 40 (H) 6 - 19 APS SPECTRA mg/dL [facility] Creatinine 3.31 (H) 0.60 - APS SPECTRA 1.30 mg/dL [facility] BUN/Creatinine 12.1 10.0 - APS [facility]PECTRA Ratio 20.0 [facility] Sodium 137 136 - 145 APS SPECTRA mEq/L [facility] Potassium 3.8 3.5 - 5.1 APS [facility]PECTRA mEq/L [facility] Chloride 100 96 - 108 APS SPECTRA mEq/L [facility] Bicarbonate 27 22 - 29 APS SPECTRA (CO2) mEq/L [facility] Calcium 9.7 8.4 - 10.2 APS [facility]PECTRA mg/dL [facility] Corrected 10.3 (H) 8.4 - 10.2 APS SPECTRA Calcium [...] 1.0 - 2.0 [facility]PS SPECTRA [facility] Iron 54 45 - 160 mcg/dL APS SPECTRA [place] [facility] UIBC 171 155 - 355 mcg/dL APS SPECTRA K [facility] TIBC 225 185 - 515 mcg/dL APS SPECTRA K [facility] Iron Saturation (TSat) 24 20 - 55 % APS SPE CTRA [facility] Specimen (Source) Anatomical Collection Method Collection Time Re ceived Time Location / / Volume Laterality 08/21/2019 08/22/2019 8:20 PM CDT Narrative APS SPECTRA [facility] - 08/23/2019 Unless otherwise specified, test(s) performed at: [facility], [address] [place] [address] EXPANDED FUNCTION DENTAL ASSISTANT: Alec Payan M.D. For any questions, please call customer service at FREQUENCY:MONTHLY Resulting Agency Comment Specimen source: Serum Ernie Pompa MD LAB BLOOD ORDERABLES Performing Organization Address City/State/ZIP Code Phon e Number APS SPECTRA [facility] (ABNORMAL) HEMATOLOGY (08/21/2019) Analysis Performed At Patho logist Time Signature WBC 5.96 4.80 - APS SPECTRA 10.80 [facility] 1000/mcL RBC 3.84 (L) 4.70 - APS SPECTRA 6.10 [facility] mill/mcL Hemoglobin 11.3 (L) 14.0 - APS SPECTRA 18.0 g/dL [facility] Hemoglobin x 3 33.9 (L) 42.0 - APS SPECTRA 54.0 % [facility] Hematocrit 36.4 (L) 42.0 - APS SPECTRA 52.0 % [facility] MCV 95 80 - 100 APS SPECTRA fl [facility] MCH 29.4 27.0 - APS SPECTRA 31.0 pg [facility] MCHC 31.0 30.0 - APS SPECTRA 36.0 g/dL [facility] RDW 16.0 (H) 11.5 - APS SPECTRA 14.5 % [facility] Platelets 208 130 - 400 APS SPECTRA 1000/mcL [facility] Specimen (Source) Anatomical Collection Method Collection Time Re ceived Time Location / / Volume Laterality 08/21/2019 08/22/2019 4:50 PM CDT Narrative APS SPECTRA [facility] - 08/22/2019 Unless otherwise specified, test(s) performed at: [facility], [address] [place] [address] EXPANDED FUNCTION DENTAL ASSISTANT: Alec Payan M.D. For any questions, please call customer service at FREQUENCY:MONTHLY Resulting Agency Comment Specimen source: Blood Ernie Pompa MD LAB BLOOD ORDERABLES Performing Organization Address City/State/ZIP Code Phon e Number APS SPECTRA [facility] documented in this encounter Visit Diagnoses Not on filedocumented in this encounter
--- OUTSIDE RECORDS SUMMARY | 2021-11-04 08:41 | XMS_ITS | Encounter Summary ---
:1945 Author Organization [facility] Address [address] [place] [address] Care Team Providers Name Role Phone Unavailable Primary Care Provider Unavailable Encounter Details Date Type Department Care Team Description 07/10/2019 Orders Only [facility] O f Ernie Guzmán MD [phone] [place] [address] [place], [place] [phone] (Wo rk) Social History Tobacco Use Types Packs/Day Years Used Date Smoking Tobacco: Unknown Comments: Smoking History Info:Patient n ot screened Sex Assigned at Date Recorded Not on file documented as of this encounter Plan of Treatment Not on filedocumented as of this encounter Procedures Procedure Name Priority Date/Time Associated Diagnosis Comme nts HEMATOLOGY Routine 07/10/2019 Results for thi s procedure are in the resu lts section. documented in this encounter Results (ABNORMAL) HEMATOLOGY (07/10/2019) Analysis Performed At Patho logist Time Signature Hemoglobin 10.9 (L) 14.0 - APS SPECTRA 18.0 g/dL [facility] Hemoglobin x 3 32.7 (L) 42.0 - APS SPECTRA 54.0 % [facility] Specimen (Source) Anatomical Collection Method Collection Time Re ceived Time Location / / Volume Laterality 07/10/2019 07/11/2019 2:39 PM CDT Narrative APS SPECTRA [facility] - 07/11/2019 Unless otherwise specified, test(s) performed at: [facility], [address] [place] [address] MEDICAL RESEARCHER: Alec Payan M.D. For any questions, please call customer service at FREQUENCY:OTHER Resulting Agency Comment Specimen source: Blood Ernie Pompa MD LAB BLOOD ORDERABLES Performing Organization Address City/State/ZIP Code Phon e Number APS SPECTRA [facility] documented in this encounter Visit Diagnoses Not on filedocumented in this encounter
--- OUTSIDE RECORDS SUMMARY | 2021-11-04 08:41 | XMS_ITS | Encounter Summary ---
:1945 Author Organization [facility] Address [address] [place] [address] Care Team Providers Name Role Phone Unavailable Primary Care Provider Unavailable Encounter Details Date Type Department Care Team Description 10/02/2019 Orders Only [facility] O f Ernie Guzmán MD [address] [place] [address] [place], [place] [phone] (Wo rk) Social History Tobacco Use [...] in this encounter Results (ABNORMAL) HEMATOLOGY (10/02/2019) [facility] gist Method Time Signature Neutrophils 74.2 [...] 10/03/2019 Unless otherwise specified, test(s) performed at: [facility], [address] [place] [address] ALCOHOLISM WORKER: Alec Payan M.D. For any questions, please call customer service at FREQUENCY:OTHER Resulting Agency Comment Specimen source: Blood Ernie Pompa MD LAB BLOOD ORDERABLES Performing Organization Address City/State/ZIP Code Phon e Number APS SPECTRA [facility] documented in this encounter Visit Diagnoses Not on filedocumented in this encounter
--- OUTSIDE RECORDS SUMMARY | 2021-11-04 08:41 | XMS_ITS | Encounter Summary ---
:1945 Author Organization [facility] Address [address] [place] [address] Care Team Providers Name Role Phone Unavailable Primary Care Provider Unavailable Encounter Details Date Type Department Care Team Description 06/05/2019 Orders Only [facility] O f Ernie Guzmán MD [address] [place] [address] [place], [place] [phone] (Wo rk) Social History Tobacco Use Types Packs/Day Years Used Date Smoking Tobacco: Unknown Comments: Smoking History Info:Patient n ot screened Sex Assigned at Date Recorded Not on file documented as of this encounter Plan of Treatment Not on filedocumented as of this encounter Procedures Procedure Name Priority Date/Time Associated Diagnosis Comme nts HEMATOLOGY Routine 06/05/2019 Results for thi s procedure are in the resu lts section. documented in this encounter Results (ABNORMAL) HEMATOLOGY (06/05/2019) Analysis Performed At Patho logist Time Signature Hemoglobin 10.0 (L) 14.0 - APS SPECTRA 18.0 g/dL [facility] Hemoglobin x 3 30.0 (L) 42.0 - APS SPECTRA 54.0 % [facility] Specimen (Source) Anatomical Collection Method Collection Time Re ceived Time Location / / Volume Laterality 06/05/2019 06/06/2019 1:10 PM CDT Narrative APS SPECTRA [facility] - 06/06/2019 Unless otherwise specified, test(s) performed at: [facility], [address] [place] [address] CHANGE CONSULTANT: Tawanna green M.D. For any questions, please call customer service at FREQUENCY:OTHER Resulting Agency Comment Specimen source: Blood Ernie Pompa MD LAB BLOOD ORDERABLES Performing Organization Address City/State/ZIP Code Phon e Number APS SPECTRA [facility] documented in this encounter Visit Diagnoses Not on filedocumented in this encounter
--- OUTSIDE RECORDS SUMMARY | 2021-11-04 08:41 | XMS_ITS | Encounter Summary ---
:1945 Author Organization [facility] Address [address] [place] [address] Care Team Providers Name Role Phone Unavailable Primary Care Provider Unavailable Encounter Details Date Type Department Care Team Description 07/03/2019 Orders Only [facility] O f Ernie Guzmán MD [address] [place] [address] [place], [place] [phone] (Wo rk) Social History Tobacco Use [...] 0.67 KAMERON eKdrt/V 1.29 KAMERON eNPCR 0.63 KAMERON spKt/V Gotch 1.48 KAMERON PCR 60.71 KAMERON Specimen (Source) Anatomical Location Collection Method / Collectio n Time Received Time / Laterality Volume 07/03/2019 07/03/2019 Kameron Ordering Provider LAB BLOOD ORDERABLES Performing Organization Address [facility] Phon e Number KAMERON IMMUNO CHEMISTRY (07/03/2019) P athologist Signature Hep B Surface Negative Negative APS SPECTRA Ag [facility] Specimen (Source) Anatomical Collection Method Collection Time Re ceived Time Location / / Volume Laterality 07/03/2019 07/04/2019 8:19 PM CDT Narrative APS SPECTRA [facility] - 07/05/2019 Unless otherwise specified, test(s) performed at: [email or web address], [address] [place] [address] INFORMATICA DEVELOPER: Alec Payan M.D. For any questions, please call customer service at FREQUENCY:OTHER Resulting Agency Comment Specimen source: Serum Ernie Pompa MD LAB BLOOD ORDERABLES Performing Organization Address [facility] Phon e Number APS SPECTRA [facility] HD KINETICS (07/03/2019) P athologist Signature % Urea 71 65 - 80 % APS SPECTRA Reduction [facility] Specimen (Source) Anatomical Collection Method Collection Time Re ceived Time Location / / Volume Laterality 07/03/2019 07/04/2019 8:19 PM CDT Narrative APS SPECTRA [facility] - 07/05/2019 Unless otherwise specified, test(s) performed at: [email or web address], [address] [place] [address] INFORMATICA DEVELOPER: Alec Payan M.D. For any questions, please call customer service at FREQUENCY:OTHER Resulting Agency Comment Specimen source: Serum Ernie Pompa MD LAB BLOOD ORDERABLES Performing Organization Address City/[facility] Phon e Number APS SPECTRA [facility] (ABNORMAL) Spectrae Chemistry (07/03/2019) P athologist Signature BUN 35 (H) 6 - 19 APS SPECTRA mg/dL [facility] Specimen (Source) Anatomical Collection Method Collection Time Re ceived Time Location / / Volume Laterality 07/03/2019 07/04/2019 8:19 PM CDT Narrative APS SPECTRA [facility] - 07/05/2019 Unless otherwise specified, test(s) performed at: [email or web address], [address] [place] [address] INFORMATICA DEVELOPER: Alec Payan M.D. For any questions, please call customer service at FREQUENCY:OTHER Resulting Agency Comment Specimen source: Serum Ernie Pompa MD LAB BLOOD ORDERABLES Performing Organization Address City/[facility] Phon e Number APS SPECTRA [facility] POST CHEMISTRY (07/03/2019) P athologist Signature BUN Post 10 6 - 19 APS SPECTRA Dialysis mg/dL [facility] Specimen (Source) Anatomical Collection Method Collection Time Re ceived Time Location / / Volume Laterality 07/03/2019 07/04/2019 5:30 PM CDT Narrative APS SPECTRA [facility] - 07/04/2019 Unless otherwise specified, test(s) performed at: [email or web address], [address] [place] [address] INFORMATICA DEVELOPER: Alec Pyaan M.D. For any questions, please call customer service at FREQUENCY:OTHER Resulting Agency Comment Specimen source: Plasma Ernie Pompa MD LAB BLOOD ORDERABLES Performing Organization Address [facility] Phon e Number APS SPECTRA [facility] [...] 07/04/2019 Unless otherwise specified, test(s) performed at: [email or web address], [address] [place] [address] INFORMATICA DEVELOPER: Alec Payan M.D. For any questions, please call customer service at FREQUENCY:OTHER Resulting Agency Comment Specimen source: Blood Ernie Pompa MD LAB BLOOD ORDERABLES Performing Organization Address City/[facility] Phon e Number APS SPECTRA [facility] documented in this encounter Visit Diagnoses Not on filedocumented in this encounter
--- OUTSIDE RECORDS SUMMARY | 2021-11-04 08:42 | XMS_ITS | Encounter Summary ---
:1945 Author Organization [facility] Address [address] [place] [address] Care Team Providers Name Role Phone Unavailable Primary Care Provider Unavailable Encounter Details Date Type Department Care Team Description 05/22/2019 Orders Only [facility] O f Ernie Guzmán MD [phone] [place] [address] [place], [place] [phone] (Wo rk) Social History Tobacco Use [...] Volume Laterality 05/22/2019 05/23/2019 10:5 1 PM CHROMOSOMAL DISORDERS COUNSELOR Resulting Agency Comment Specimen source: Plasma Ernie Pompa MD LAB BLOOD ORDERABLES Performing Organization Address City/State/ZIP Code Phon e Number APS SPECTRA [facility] POST CHEMISTRY (05/22/2019) athologist Signature BUN Post 13 6 - 19 APS SPECTRA Dialysis mg/dL [facility] Specimen (Source) Anatomical Collection Method Collection Time Re ceived Time Location / / Volume Laterality 05/22/2019 05/23/2019 10:5 1 PM CHROMOSOMAL DISORDERS COUNSELOR Narrative APS SPECTRA [facility] - 05/24/2019 Unless otherwise specified, test(s) performed at: [facility], [address] [place] [address] TRACK SUPERINTENDENT: Tawanna green M.D. For any questions, please call customer service at FREQUENCY:MONTHLY Resulting Agency Comment Specimen source: Plasma Ernie Pompa MD LAB BLOOD ORDERABLES Performing Organization Address City/[facility]/ZIP Code Phon e Number APS SPECTRA [facility] (ABNORMAL) Spectrae Chemistry (05/22/2019) [facility] [place] [facility] Method Time Signature BUN 30 (H) [...] Volume Laterality 05/22/2019 05/23/2019 11:2 0 AM CHROMOSOMAL DISORDERS COUNSELOR Narrative APS SPECTRA [facility] - 05/23/2019 Unless otherwise specified, test(s) performed at: [facility], [address] [place] [address] TRACK SUPERINTENDENT: Tawanna green M.D. For any questions, please [...] Volume Laterality 05/22/2019 05/23/2019 12:4 6 PM CHROMOSOMAL DISORDERS COUNSELOR Narrative APS SPECTRA [facility] - 05/23/2019 Unless otherwise specified, test(s) performed at: [facility], [address] [place] [address] TRACK SUPERINTENDENT: Tawanna green M.D. For any questions, please call customer service at FREQUENCY:MONTHLY Resulting Agency Comment Specimen source: Blood Ernie Pompa MD LAB BLOOD ORDERABLES Performing Organization Address City/State/ZIP Code Phon e Number APS SPECTRA [facility] documented in this encounter Visit Diagnoses Not on filedocumented in this encounter
--- OUTSIDE RECORDS SUMMARY | 2021-11-04 08:42 | XMS_ITS | Encounter Summary ---
:1945 Author Organization [facility] Address [address] [place] [address] Care Team Providers Name Role Phone Unavailable Primary Care Provider Unavailable Encounter Details Date Type Department Care Team Description 05/15/2019 Treatment [facility] O Ernie Gómez MD [address] [place] [address] [place], [place] [address] [phone] (Wo rk) Social History Tobacco Use Types Packs/Day Years Used Date Smoking Tobacco: Unknown Comments: Smoking History Info:Patient n ot screened Sex Assigned at Date Recorded Not on file documented as of this encounter Miscellaneous Notes Dialysis Note - Ernie Pompa MD - 05/15/2019 12:58 PM CST Date: May 15, 2019 Patient Name: Shaun Ocampo : 1945 Chart #: [id number] Sex: M This patient was personally seen [...] AM ) BP (sit): 148/53 AP(-) / ADMINISTRATIVE OFFICE ASSISTANT: 216/194 Pulse: 62 Chairside data as of [...] 4:0 4:0 Actual Treatment Time 04:01 04:03 EDUCATIONAL ASSISTANT TEACHER: Ernie Pompa MD LOCATION: [phone] SCHEDULE: -- 2nd Shift EDW: kg. DIALYZER: [...] tablet Take 1 tablet once a day [place] Saline (sodium chloride) 0.65% drops calcitriol 0.25 [...] away) Vascular Access Assessment Type of access: Tavzonc37/2019 Lary GARDNER Anemia Assessment HEMOGLOBIN (G/DL) IN [...] at goal. Intact PTH is at goal. Lay Out Maker will adjust binders and vitamin D per protocol and continue to provide dietary education. Cardiovascular Assessment Blood pressures reviewed and are acceptable. Intradialytic weight gains are appropriate. Estimated dry weight is appropriate. Challenge EDW as BP tolerates Transplant Status: Patient is not a candidate. Weight, co-morbidities Resuscitation Status Tolerating initiation of dialysis well Challenge EDW slowly Stop oral iron, start IV iron Ernie Pompa MD [ Signed And locked electronically On 05/15/2019 at 01:01:17 PM ] Transcribed: Ernie Pompa ( 05/15/2019 ) Dialysis Note - Ernie Pompa MD - 05/15/2019 11:53 AM CST Date: May 15, 2019 Patient Name: Shaun Ocampo : 1945 Chart #: [id number] Sex: M Patient Type: ESRD Modality: Hemodialysis Geographical Historian: Ernie Pompa MD Location: [phone] Schedule: -W- 2nd Shift Initial Access Date [...]
--- OUTSIDE RECORDS SUMMARY | 2021-11-04 08:42 | XMS_ITS | Encounter Summary ---
:1945 Author Organization [facility] Address [address] [place] [address] Care Team Providers Name Role Phone Unavailable Primary Care Provider Unavailable Encounter Details Date Type Department Care Team Description 05/22/2019 Treatment [facility] O Ernie Gómez MD [address] [place] [address] [place], [place] [phone] (Wo rk) Social History Tobacco Use Types Packs/Day Years Used Date Smoking Tobacco: Unknown Comments: Smoking History Info:Patient n ot screened Sex Assigned at Date Recorded Not on file documented as of this encounter Miscellaneous Notes Dialysis Note - Ernie Pompa MD - 05/22/2019 12:28 PM CST Date: May 22, 2019 Patient Name: Shaun Ocampo : 1945 Chart #: [id number] Sex: M This patient was personally seen [...] AM ) BP (sit): n/a AP(-) / WATER PURIFIER OPERATOR: 231/165 Pulse: n/a Chairside data as of [...] 4:0 Actual Treatment Time 04:04 04:01 04:04 CATTLE PRODUCERS: Ernie Pompa MD LOCATION: [place] [phone] SCHEDULE: -- 2nd Shift EDW: kg. DIALYZER: [...] tablet Take 1 tablet once a day [place] Saline (sodium chloride) 0.65% drops calcitriol 0.25 [...] 800 Vascular Access Assessment Type of access: Dhatidt31/2019 Surgeon - Lary GARDNER Advancing needles to [...] at goal. Intact PTH is at goal. Slicing Machine Tender will adjust binders and vitamin D [...]
--- OUTSIDE RECORDS SUMMARY | 2021-11-04 08:42 | XMS_ITS | Continuity of Care Document ---
:1945 Author Organization [facility] Digestive [facility] Address [address] [address] [place] [address] Phone Care Team Providers Name Role Phone [...] rs Description For Visit Copied on Encounter [facility] [place] No Sep- Lizz CAMPBELL Digestive [facility] Information Joce. Health [place], Endoscopy [address] [address], [address], [address], [id number], [place], [place] [id number], tel:[phone] tel:[phone] Init Hosp-da [facility] No Sep- Lizz CAMPBELL Referr ing E&m Mod Digestive [place] Information 3 Joce. Provider : [facility] Hospital 2 [address] [facility] [place], [address], Street [address], [address] [place] [address], [place], [place], [place], [address], [id number], [place], [place] [id number], , [place], tel:+ [phone]. [phone] tel: tel:[phone] Subsqt [facility] Ramon No Desean MARTIN Referring Hosp-da E&m Digestive [facility] Information 4-200 Lisa. Provider: [facility], Hosp 9 [address] [facility] Jason C[place] [address], [address] NE, R, [address] [place] [address], [address], [place], [place], [address], [id number], [place], [place] [id number], [place], [place], [place]: [place]. [phone]. [phone] tel: tel: [phone] Init Inpt [facility] Ramon No No Referring Cons New/est Digestive [facility] Information 2200 Informat ion Provider: [facility], Hosp [address] [place] [address] Jason CAMPBELL [address], R, [address] [place] [address], [place], [address], [id number], [place], [place], tel: [phone] tel:[phone] MNGI Ramon No Nilton CAMPBELL Referring Dig[facility]ive [facility] 9-200 Zaida. 3001 P rovider: [facility], [address], Cash CAMPBELL [address], [address], P, [address] [place] [facility] s, [place], [place], Street [place] [id number], [id number], [address], [place] tel: tel:+ s, [place], [phone] . tel:[phone] Subsqt MNGI Ramon No Nesset STARCH AND PROSIZE MIXER Referring Hosp-da E&m Digestive [facility] Information 8-200 Ailyn. 30 01 Provider: [facility], Hosp [address] [place] [address] [place] [address], [address], R, [address] [place] [facility] [address] s, [place], [place], [address], [id number], [id number], [place] [facility]. s, [place], tel: tel:[phone]. [phone] tel:[phone] Init Inpt MNGI Ramon No Cash CAMPBELL Referring Cons New/est Digestive [facility] Information 7-200 Bryan. 3001 Provider: [facility], Hosp [address] [facility], Jason CAMPBELL [address], [address], [address], [address] [facility] [address], [place], [place], [address], [id number], [id number], [place] [facility]. s, [place], tel: tel:[phone]. [phone] tel:[phone] Family History Family Member Type Diagnosis Age At Onset No Information Payers Payer name Insurance type Covered republican ID Authorization(s ) [employer] Medicare Advantage [id number] Social History Type Description Quantity Date Captured [...]
--- OUTSIDE RECORDS SUMMARY | 2021-11-04 08:42 | XMS_ITS | Encounter Summary ---
:1945 Author Organization [facility] Address [address] [place] [address] Care Team Providers Name Role Phone Unavailable Primary Care Provider Unavailable Encounter Details Date Type Department Care Team Description 05/01/2019 Orders Only [facility] O f Ernie Guzmán MD [address] [place] [address] [place], [place] [phone] (Wo rk) Social History Tobacco Use [...] above test result was obtained using Siemens Barburritoaur XP chemiluminescent method. Results obtaine d with different assay methods or kits cannot be used interchangeably. Specimen (Source) Anatomical Collection Method Collection Time Re ceived Time Location / / Volume Laterality 05/01/2019 05/02/2019 3:03 PM COMMUNICATION CENTER OPERATOR Resulting Agency Comment Specimen source: Serum [...] / Volume Laterality 05/01/2019 05/02/2019 3:03 PM COMMUNICATION CENTER OPERATOR Narrative APS SPECTRA [facility] - 05/03/2019 Unless otherwise specified, test(s) performed at: [facility], [address] [place], [place] [id number] LEGAL PARAPROFESSIONAL: Tawanna green M.D. For any questions, please call customer service at FREQUENCY:MONTHLY Resulting Agency Comment Specimen source: Serum Ernie Pompa MD LAB BLOOD BANK TEST ORDERABL ES Performing Organization Address City/[facility] Phon e Number APS SPECTRA [facility] (ABNORMAL) Spectrae Chemistry (05/01/2019) P athologist Signature PTH 351 (H) 16 - 80 APS SPECTRA pg/mL [facility] Specimen (Source) Anatomical Collection Method Collection Time Re ceived Time Location / / Volume Laterality 05/01/2019 05/02/2019 8:20 PM COMMUNICATION CENTER OPERATOR Narrative APS SPECTRA [facility] - 05/03/2019 Unless otherwise specified, test(s) performed at: [facility], [address] [place], [place] [id number] LEGAL PARAPROFESSIONAL: Tawanna green M.D. For any questions, please call customer service at FREQUENCY:MONTHLY Resulting Agency Comment Specimen source: Plasma Ernie Pompa MD LAB BLOOD ORDERABLES Performing Organization Address City/State/[facility] Phon e Number [...] / Volume Laterality 05/01/2019 05/02/2019 8:20 PM COMMUNICATION CENTER OPERATOR Narrative APS SPECTRA [facility] - 05/03/2019 Unless otherwise specified, test(s) performed at: [facility], [address] [place] [address] LEGAL PARAPROFESSIONAL: Tawanna green M.D. For any questions, please call customer service at FREQUENCY:MONTHLY Resulting Agency Comment Specimen source: Blood Ernie Pompa MD LAB BLOOD ORDERABLES Performing Organization Address City/[facility] Phon e Number APS SPECTRA [facility] TRACE ELEMENTS (05/01/2019) P athologist Signature Aluminum <5 0 - 10 APS SPECTRA mcg/L [facility] Comment: This test was developed and its performa nce characteristics determined by [facility]. It has not been cleared or approved by the FDA. The laboratory is regulated under CLIA a s qualified to perform high complexity testing. This test is used fo r clinical purposes. It should not be regarded as investigational or fo r research. Specimen (Source) Anatomical Collection Method Collection Time Re ceived Time Location / / Volume Laterality 05/01/2019 05/02/2019 4:05 PM COMMUNICATION CENTER OPERATOR Narrative APS SPECTRA [facility] - 05/02/2019 Unless otherwise specified, test(s) performed at: [facility], [address] [place] [address] LEGAL PARAPROFESSIONAL: Tawanna green M.D. For any questions, please call customer service at FREQUENCY:MONTHLY Resulting Agency Comment Specimen source: Serum Ernie Pompa MD LAB BLOOD ORDERABLES Performing Organization Address City/[facility] Phon e Number APS SPECTRA [facility] (ABNORMAL) HD KINETICS (05/01/2019) P athologist Signature % Urea 96 (H) 65 - 80 % APS SPECTRA Reduction [facility] Specimen (Source) Anatomical Collection Method Collection Time Re ceived Time Location / / Volume Laterality 05/01/2019 05/02/2019 3:04 PM COMMUNICATION CENTER OPERATOR Narrative APS SPECTRA [facility] - 05/02/2019 Unless otherwise specified, test(s) performed at: [facility], [address] [place] [id number] LEGAL PARAPROFESSIONAL: Tawanna green M.D. For any questions, please call customer service at FREQUENCY:MONTHLY Resulting Agency Comment Specimen source: Serum Ernie Pompa MD LAB BLOOD ORDERABLES Performing Organization Address City/State/ZIP Code Phon e Number APS SPECTRA [facility] (ABNORMAL) Spectrae Chemistry (05/01/2019) [facility] gist Method Time Signature BUN 68 (H) [...] / Volume Laterality 05/01/2019 05/02/2019 3:03 PM COMMUNICATION CENTER OPERATOR Narrative APS SPECTRA [facility] - 05/03/2019 Unless otherwise specified, test(s) performed at: [facility], [address] [place] [address] LEGAL PARAPROFESSIONAL: Tawanna green M.D. For any questions, please call customer service at FREQUENCY:MONTHLY Resulting Agency Comment Specimen source: Serum Ernie Pompa MD LAB BLOOD ORDERABLES Performing Organization Address City/[facility]/ZIP Code Phon e Number APS SPECTRA [facility] (ABNORMAL) POST CHEMISTRY (05/01/2019) P athologist Signature BUN Post 3 (L) 6 - 19 APS SPECTRA Dialysis mg/dL [facility] Specimen (Source) Anatomical Collection Method Collection Time Re ceived Time Location / / Volume Laterality 05/01/2019 05/02/2019 12:5 1 PM COMMUNICATION CENTER OPERATOR Narrative APS SPECTRA [facility] - 05/02/2019 Unless otherwise specified, test(s) performed at: [facility], [address] [place] [address] LEGAL PARAPROFESSIONAL: Tawanna green M.D. For any questions, please call customer service at FREQUENCY:MONTHLY Resulting Agency Comment Specimen source: Plasma Ernie Pompa MD LAB BLOOD ORDERABLES Performing Organization Address City/State/ZIP [facility] Phon e Number APS SPECTRA [facility] documented in this encounter Visit Diagnoses Not on filedocumented in this encounter
--- OUTSIDE RECORDS SUMMARY | 2021-11-04 08:42 | XMS_ITS | Encounter Summary ---
:1945 Author Organization [facility] Address [address] [place] [address] Care Team Providers Name Role Phone Unavailable Primary Care Provider Unavailable Encounter Details Date Type Department Care Team Description 05/29/2019 Orders Only [facility] O f Ernie Guzmán MD [address] [place] [address] [place], [place] [phone] (Wo rk) Social History Tobacco Use [...] Provider LAB BLOOD ORDERABLES Performing Organization Address City/[facility]/[place]IP [facility] Phon e Number KAMERON (ABNORMAL) HD KINETICS (05/29/2019) P athologist Signature % Urea 64 (L) 65 - 80 % APS SPECTRA Reduction [facility] Specimen (Source) Anatomical Collection Method Collection Time Re ceived Time Location / / Volume Laterality 05/29/2019 05/30/2019 6:23 PM CDT Narrative APS SPECTRA [facility] - 05/30/2019 Unless otherwise specified, test(s) performed at: [facility], [address] [place] [address] TUBER MACHINE OPERATOR: Tawanna green M.D. For any questions, please call customer service at FREQUENCY:OTHER Resulting Agency Comment Specimen source: Serum Ernie Pompa MD LAB BLOOD ORDERABLES Performing Organization Address City/[facility] Phon e Number APS SPECTRA [facility] [...] 05/30/2019 Unless otherwise specified, test(s) performed at: [facility], [address] [place] [address] TUBER MACHINE OPERATOR: Tawanna green M.D. For any questions, please call customer service at FREQUENCY:OTHER Resulting Agency Comment Specimen source: Serum Ernie Pompa MD LAB BLOOD ORDERABLES Performing Organization Address City/[facility]/[place]IP [facility] [place] e Number APS SPECTRA [facility] POST CHEMISTRY (05/29/2019) P athologist Signature BUN Post 10 6 - 19 APS SPECTRA Dialysis mg/dL [facility] Specimen (Source) Anatomical Collection Method Collection Time Re ceived Time Location / / Volume Laterality 05/29/2019 05/30/2019 9:58 AM CDT Narrative APS SPECTRA [facility] - 05/30/2019 Unless otherwise specified, test(s) performed at: [facility], [address] [place], [place] [id number] TUBER MACHINE OPERATOR: Tawanna green M.D. For any questions, please call customer service at FREQUENCY:OTHER Resulting Agency Comment Specimen source: Plasma Ernie Pomap MD LAB BLOOD ORDERABLES Performing Organization Address City/[facility] Phon e Number APS SPECTRA [facility] [...] 05/30/2019 Unless otherwise specified, test(s) performed at: [facility], [address] [place], [place] [id number] TUBER MACHINE OPERATOR: Tawanna green M.D. For any questions, please call customer service at FREQUENCY:OTHER Resulting Agency Comment Specimen source: Blood Ernie Pompa MD LAB BLOOD ORDERABLES Performing Organization Address City/[facility] Phon e Number APS SPECTRA [facility] documented in this encounter Visit Diagnoses Not on filedocumented in this encounter
--- OUTSIDE RECORDS SUMMARY | 2021-11-04 08:42 | XMS_ITS | Encounter Summary ---
:1945 Author Organization [facility] Address [address] [place] [address] Care Team Providers Name Role Phone Unavailable Primary Care Provider Unavailable Encounter Details Date Type Department Care Team Description 05/10/2019 Orders Only [facility] Ernie Guzmán MD [phone] [place] [address] [place], [place] [phone] (Wo rk) Social History Tobacco Use [...] / Volume Laterality 05/10/2019 05/11/2019 9:28 AM MANAGEMENT CONSULTANT Narrative [facility] - 05/11/2019 Unless otherwise specified, test(s) performed at: [facility], [address] [place] [address] [employer] WORK[employer] [place]: Tawanna green M.D. For any questions, please call customer service at FREQUENCY:OTHER Resulting Agency Comment Specimen source: Blood Ernie Pompa MD LAB BLOOD ORDERABLES Performing Organization Address City/State/ZIP Code Phon e Number [facility] documented in this encounter Visit Diagnoses Not on filedocumented in this encounter
== END 2021-11-04 08:33 | disposition home or self-care (01) ==
LOC: WOUND 08:33
PROVIDERS: PCP Family Medicine; Visit Provider Nurse Practitioner Family
DX: E11.622 Type 2 diabetes mellitus with other skin ulcer (principal); L97.312 Non-pressure chronic ulcer of right ankle with fat layer exposed
CPT/HCPCS: 11042

== ENCOUNTER 2021-11-11 09:23 | Outpatient (CLI) | payer MEDICARE, SELFPAY ==
--- OUTSIDE RECORDS SUMMARY | 2021-11-11 09:33 | XMS_ITS | Encounter Summary ---
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
--- OUTSIDE RECORDS SUMMARY | 2021-11-11 09:33 | XMS_ITS | Clinical Summary ---
:1945 Author Organization [facility] Address [address] [place] [address] Care Team Providers Name Role Phone Liban [...] (LIPITOR) 20 MG mouth daily tablet fluticasone [place] 1 spray in 0 12/15/2020 Active (FLONASE) 50 MCG/ACT nostril daily nasal spray fluticasone-salmeter Inhale 2 puffs 0 07/04/2021 Active ol (ADVAIR HFA) into the lungs 2 115-21 MCG/ACT times daily inhaler metoprolol succinate Take 0.5 tablets 0 12/15/2020 Active ER (TOPROL XL) 25 MG by mouth daily 24 hr tablet sevelamer carbonate Take 1 tablet by 0 09/10/2021 Active (RENVELA) 800 MG mouth 3 times tablet daily (with meals) multivitamin RENAL Take 1 capsule by 0 12/15/2020 Active (MULTIVITAMIN RENAL) mouth 1 MG capsule lidocaine-prilocaine APPLY SMALL 0 08/13/2021 Active (EMLA) 2.5-2.5 % AMOUNT TO ACCESS external cream SITE (AVF) 1 TO 2 HOURS BEFORE DIALYSIS. COVER WITH OCCLUSIVE DRESSING (SARAN WRAP) pantoprazole Take 1 tablet (40 30 tablet 1 10/12/2021 Active (PROTONIX) 40 MG EC mg) by mouth tabletIndications: every morning UGI bleed (before breakfast) sucralfate Take 1 tablet (1 90 tablet 0 10/11/2021 11/10/2021 (CARAFATE) 1 GM g) by mouth 3 tabletIndications: times daily (with UGI bleed meals) for 30 days Active Problems Problem Noted Date CKD (chronic [...] counseling Liban Gruber 10/10[facility]20[facility]/10[facility]2021 Surgery Surgery Lizz, ESOPHAGOGASTROD UODENOSCOPY Joce Rene MD 10/08/2021 Hospital Med Surg [place], UGI bleed - Encounter Florentino Romo MD 10/11/2021 Fadi Viveros DO Amdahl, John, MD Matthews, Rhys Alvares MD 10/08/2021 Travel from Last 3 Months Social History Tobacco Use Types Packs/Day Years Used Date Never Smoker Dip, chew, snus or snuff Smokeless Tobacco: Former User Chew Q uit: 2000 Sex Assigned at Date Recorded Not on file Last Filed Vital Signs Vital Sign Reading [...] Diagnosis HEMODIALYSIS SINGLE TREATMENT Routine 10/11/2021 SETUP ([facility]) 4:33 PM CDT HEMODIALYSIS DIALYZER ([facility]) Routine 10/11/2021 2:28 PM CDT IP TERMINATION [...] B surface antigen (10/11/2021 7:46 AM CDT) [facility] Method Time Signature Hepatitis B Nonreactive Nonreactive [...] e Number [facility] CORE/PROT/ENDO [facility] [place], [place] [address] Core/Prot/Endo [address] [facility] [address], Room 3-580 (ABNORMAL) Basic metabolic panel (10/11/2021 6:36 AM CDT)Only the most recent of 3 resultswithin the time period is included. [facility] Method Time Signature Sodium 134 133 - [...] and gender (Brigette et al., NEJM, DOI: [id number]/[id number]) Specimen Anatomical Collection Method / Collection Time Recei annie Time (Source) Location / Volume Laterality Blood STRUCTURE OF RIGHT Venipuncture / 10/11/2021 6:36 07/2 07/2021 6:42 HAND / Unknown Unknown AM CDT AM CDT Dallin Farah DO LAB - BLOOD ORDERABLES Performing Organization Address City/State/ZIP Code [place] [address] Care Lab [address] Lab (1st floor, no room number) (ABNORMAL) CBC with platelets (10/11/2021 6:36 AM CDT)Only the most recent of3 resultswithin the time period is included. Patholo gist Method Time Signature WBC Count [...] Platelet Count 165 150 - 450 10/11/2021 LABORATORY 10e3/uL 6:47 AM CDT Specimen Anatomical Collection Method / Collection Time Recei annie Time (Source) Location / Volume Laterality Blood STRUCTURE OF RIGHT Venipuncture / 10/11/2021 6:36 07/2 07/2021 6:42 HAND / Unknown Unknown AM CDT AM CDT Dallin Farah DO LAB - BLOOD ORDERABLES Performing Organization Address City/State/ZIP [place] [address] Care Lab [address] Lab (1st floor, no room number) [...] AM CDT Rhys Duarte MD LAB - [facility] POCT Performing Organization Address City/State/ZIP Code Phon e Number [place] [address] Care Lab [address] Lab (1st floor, no room number) Surgical Pathology Exam (10/10/2021 8:58 AM CDT) Component Value Ref Test Analysis Performed Pathologis t Range Method Time At Signature Case Report Surgical Pathology Report ? Case: [id number] ? RH Authorizing Provider: ??Carb allo, Joce ? Collected: ? 10/10/2021 08:58 AM ? 2 8:22 AM LABORA TORY ? MD Edgard ? CDT Ordering Location: ? [facility] ?? Received: ?10/10/2021 09:42 AM ? [...] -Negative for dysplasia or malignancy Clinical Procedure: RH Information ESOPHAGOGASTRODUODENOSCOPY biopsies 2 8:22 AM LABORATORY Pre-op Diagnosis: Hematemesis [K92.0] CD T Post-op Diagnosis: K92.0 - Hematemesis [ICD-10-CM] Gross A(1). Small Intestine, Duodenum, Duodenal Bulb: RH Description The specimen is received in formalin, [...] was 2 8:22 AM LABORATORY completed at [facility] Laboratory Case Images 2 8:22 AM LABORATORY CDT Specimen (Source) Anatomical Collection Method Collection Time Re ceived Time Location / / Volume Laterality Biopsy DUODENAL 10/10/2021 8:58 10/10/2021 9 :42 STRUCTURE / AM CDT AM CDT Unknown Specimen from STOMACH STRUCTURE 10/10/2021 8:59 2021 9:42 unspecified body / Unknown AM CDT AM CDT site obtained by biopsy (specimen) Joce Zamudio MD LAB - [facility] Performing Organization Address City/State/ZIP Code [place] [address] Care Lab [address] Lab (1st floor, no room number) UPPER GI ENDOSCOPY (10/10/2021 8:18 AM CDT) Component Value Ref Test Analysis Performed At [facility] Range Method Time Signature Upper GI [facility] RADIOLOGY Endoscopy RESULTS Patient Name: Shaun Ocampo ? Procedure Date: 09/18 8:18 AM ? Account Num flako: [id number] Date of : 1945 ?Admit Type: Inp [...] Model ?# [id number], Endora # 205, SN #[id number] was ?introduced through the mouth, and advanced [...] Note Initiated On: 10/10/2021 8:18 AM MRN: ?[id number] Procedure Date: ? 10/10/2021 8:18:14 AM Total [...] results within the time period is included. athologist Signature Hemoglobin 9.2 (L) 13.3 - 17.7 10/10/2021 [facility] LABORATORY g/dL 2:39 AM CDT Specimen Anatomical Collection Method / Collection Time Recei annie Time (Source) Location / Volume Laterality Blood STRUCTURE OF RIGHT Venipuncture / 10/10/2021 2:15 07/2 06/2021 2:32 HAND / Unknown Unknown AM CDT AM CDT Christie Roldan MD LAB - BLOOD ORDERABLES Performing Organization Address City/[facility]/ZIP Code Ph[place] [address] Care Lab [address] [facility] Lab (1st floor, no room number) Transfuse [...] O Neg RH BLOOD BANK Unit Number [id number] RH BLOOD BANK Unit Status Transfused RH BLOOD BANK Blood Red Blood Cells RH BLOOD Component Type BANK Product Code [id number] RH BLOOD BANK CODING SYSTEM [id number] RH BLOOD BANK UNIT TYPE ISBT 9500 RH BLOOD BANK ISSUE DATE AND [id number] RH BLOOD TIME BANK Specimen (Source) Anatomical Collection Method Collection Time Re ceived Time Location / / Volume Laterality 10/09/2021 6:52 AM CDT Dallin Simons MD BLOOD BANK PRODUCT ORDERABLE S Performing Organization Address [facility]/ZIP Code Phon e Number RH BLOOD BANK [address] [place] [address] EKG 12-lead, tracing only (10/09/2021 12:52 AM CDT) Component Value Ref Range Test Analysis Performed Pathologis t Method Time At Signature Systolic Blood mmHg RADIOLOGY Pressure RESULTS Diastolic Blood mmHg RADIOLOGY Pressure RESULTS Ventricular Rate 70 BPM RADIOLOGY RESULTS Atrial Rate 39 BPM RADIOLOGY RESULTS TN Interval ms RADIOLOGY RESULTS QRS Duration 126 ms RADIOLOGY RESULTS QT 442 ms RADIOLOGY RESULTS QTc 477 ms RADIOLOGY RESULTS P [place] degrees RADIOLOGY RESULTS R AXIS 107 degrees RADIOLOGY RESULTS T [place] 33 degrees RADIOLOGY RESULTS Interpretation Atrial fibrillation RADIO LOGY ECG Right bundle branch block RESU LTS Abnormal ECG No previous ECGs available Confirmed by - [facility] Aravind, PHYSICIAN ([id number]), map editor ANDRÉS HATCH ([id number]) on 10/11/2021 6:42:29 AM Specimen Anatomical Collection Method Collection Time Receive d Time (Source) Location / / Volume Laterality 10/09/2021 12:52 10/11/2021 6:42 AM CDT AM CDT Layne Rossi PA-C ECG ORDERABLES Performing Organization Address City/[facility]/ZIP Code Phon e Number RADIOLOGY RESULTS Asymptomatic COVID-19 Virus (Coronavirus) by PCR Nasopharyngeal (10/08/2021 8:44 PM CDT) Analysis Performed At Patho logist Time Signature SARS CoV2 PCR Negative Negative 10/08/2021 RH LABORATORY 9:57 PM CDT Comment: NEGATIVE: SARS-CoV-2 (COVID-19) RNA not detected, presumed negative. Specimen Anatomical Location / Collection Method Collection Ruslan e Received Time (Source) Laterality / Volume Swab NASOPHARYNGEAL Non-blood 10/08/2021 8:44 10/08/2021 9:10 STRUCTURE / Unknown Collection / PM CDT PM CDT Unknown Narrative [facility] LABORATORY - 10/08/2021 9:57 PM CDT Testing was performed using the Xpert Xpress SARS-CoV-2 Assay on the [employer]. A dditional information about this [...] COVID-19. This test was validated by the [facility]. This laboratory is certified under the Clinical Laboratory Improvement Amendments of 1988 (CLIA-88) as qualified to perform high complexity laboratory testing. Florentino Ragsdale MD LAB - MICRO GENERAL ORDERABL ES Performing Organization Address City/State/[facility] [place] [address] Care Lab [address] Lab (1st floor, no room number) [...] LAB - BLOOD ORDERABLES Performing Organization Address City/[facility]/ZIP Code [place] [address] Care Lab [address] Lab (1st floor, no room number) [...] LAB - BLOOD ORDERABLES Performing Organization Address City/[facility]/ZIP Code [place] [address] Care Lab [address] Lab (1st floor, no room number) [...] LAB - BLOOD ORDERABLES Performing Organization Address City/[facility]/ZIP Code [place] [address] Care Lab [address] Lab (1st floor, no room number) Adult Type and Screen (10/08/2021 7:02 PM CDT) [facility] Udex Method Time Signature ABO/RH(D) O NEG 10/08/2021 RH BLOOD 6:39 PM CDT BANK Antibody Negative Negative 10/08/2021 RH BLOOD Screen 6:39 PM CDT BANK SPECIMEN [id number] 10/08/2021 RH BLOOD EXPIRATION 6:39 PM CDT BANK DATE Specimen Anatomical Collection Method / Collection Time Recei annie Time (Source) Location / Volume Laterality Blood STRUCTURE OF RIGHT Venipuncture / 10/08/2021 7:02 09/18 7:10 UPPER LIMB / Unknown PM CDT PM CDT Unknown Florentino Ragsdale MD LAB - BLOOD BANK TEST ORDER Performing Organization Address City/[facility]/ZIP Code Phon e Number RH BLOOD BANK [address] [place] [address] (ABNORMAL) Comprehensive metabolic panel (10/08/2021 7:02 PM CDT) [employer] Method Time Signature Sodium 136 133 - [...] equation which includ es age and gender (Medication Reconciliation Technician et al., NEJM, DOI: 10.1056/[id number]) Specimen Anatomical Collection Method / Collection Time Recei annie Time (Source) Location / Volume Laterality Blood STRUCTURE OF RIGHT Venipuncture / 10/08/2021 7:02 09/18 7:10 UPPER LIMB / Unknown PM CDT PM CDT Unknown Florentino Ragsdale MD LAB - BLOOD ORDERABLES Performing Organization Address City/State/ZIP Code [place] [address] Care Lab [address] Lab (1st floor, no room number) from Last 3 Months Insurance Payer Benefit Plan / Subscriber ID Effective Dates Phone Addre ss Type Group BCBS BCBS MEDICARE [id number] 2018-Presbritney [phone] [address] [address] Medicare ADVANTAGE t 0 [place] [address] Advance Directives For more information, please contact: [phone] Latest Code Status on File Code Status Date Activated Date Inactivated Comments Full Code 10/11/2021 10:33 AM Code status determined by: Discussion with patient/ legal de cision maker Full Code 10/09/2021 1:43 AM 10/11/2021 10:33 AM All basic a nd advanced life-sustaining interventions ar e performed as appropriate Code status determined by: Discussion with patient/ legal de cision maker Care Teams Radio News Writer Relationship Specialty Start Date End Date Liabn Leos PCP - General Family Medicine 10/08/21 [address] [place], [place] [phone] Ernie Pompa MD MD Nephrology 10/08/21 [address] [place] [address]
--- OUTSIDE RECORDS SUMMARY | 2021-11-11 09:33 | XMS_ITS | Encounter Summary ---
:1945 Author Organization [place] Address [facility] [place] [place] [address] Care Team Providers Name Role Phone Liban Leos Primary Care Provider Ernie Pompa MD Unavailable Reason for Referral Care Coordination (Routine: Next available opening) - Pending Review Specialty Diagnoses / Procedures Referred By Contact Refer red To Contact Diagnoses Other specified counseling Liban Leos [address] [place] [address] Referral ID Status Reason Start Date Expiration Date Visits V isits Requested Authorized [id number] Pending 10/12/2021 10/12/2022 1 1 Review Encounter Details Date Type Department Care Team Description 10/12/2021 Orders Only [facility] [address] Other specified Care Coordination [address] counseling [address] [place] [address] [place] [address] Social History Tobacco Use Types [...] Name Type Priority Associated Diagnoses Order S [facility] Referral Routine: Next Other specified Expected: Discharge - available opening counseling 10/12/2021 Referral to CC (Approximate) , Expires: 10/12/2022 documented as of this encounter Visit Diagnoses Diagnosis Other specified counseling documented in this encounter Care Teams Bias Cutting Machine Operator Vertical Relationship Specialty Start Date End Date Liban Leos PCP - General Family Medicine 10/08/21 [address] [place] [address] Ernie Pompa MD MD Nephrology 10/08/21 [address] [place] [address] documented as of this encounter
--- OUTSIDE RECORDS SUMMARY | 2021-11-11 09:33 | XMS_ITS | Encounter Summary ---
:1945 Author Organization [place] Address [facility] [place] [address] Care Team Providers Name Role Phone Liban Leos Primary Care Provider Ernie Pompa MD Unavailable Reason for Visit Reason Comments Hypotension Auth/Cert Specialty Diagnoses / Procedures Referred By Contact Refer red To Contact Med Surg Diagnoses UGI bleed UGI bleed 5 Medical Surgical [address] [place], [place] [address] Phone: Fax: Referral ID Status Reason Start Date Expiration Date Visits Requ ested Visits Authorized [id number] 1 1 Encounter Details Date Type Department Care Team Description 10/10/[address] [facility] Lizz, ESOPHAGOGA STRODUODENOSCOPY [place] [facility] Joce biopsies Services MD Edgard [address] [place] [address] [address] [place] [address] Surgery Details Date/Time Status Location [...] CDT Pulse 72 10/10/2021 7:20 AM per wireless telegrapher CDT Temperature 36.5 ??C (97.7 ??F) 10/09/2021 [...] 10/11/2021 10:42 AM CDT Hospitalist Discharge Summary [facility] Jonatan Mejia Date of : 1945 Age: [...] daily fluticasone (FLONASE) 50 MCG/ACT nasal spray Gridley 1 spray in nostril daily fluticasone-salmeterol (ADVAIR [...] ulcer and??morbid obesity??who??presents to the ED from [place] [facility] due to concerns of hematemesis and melanotic stool. He had just finished HD (took 1.2L) and presented to [place] ED due to concerns of dizziness and hematemesis. ?? Work up at [place] ED showed hgb of 7.5 and soft pressures in the 100's. CT abd pelvis showed normal distal esophagus, stomach and normal liver. No symptoms of obstruction or mass. There were moderate ascites in the dependent abdomen. He received NS bolus (500cc) and 1 unit(s) PRBC and transferred to [facility] ED. 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 He does also have a history of [...] discharge was: 35 Minutes Dallin Farah DO [facility] Hospitalist [place] [address] 10/11/2021 documented in this encounter Medications at Time of Discharge Medication Sig Dispensed Refills Start Date End Date allopurinol (ZYLOPRIM) Take 100 mg by mouth 0 100 MG tablet daily atorvastatin (LIPITOR) Take 20 mg by mouth 0 11/19 20 MG tablet daily fluticasone (FLONASE) 50 Gridley 1 spray in 0 12/15 MCG/ACT nasal [...] walker and gait belt, denies pain, GREY, K2yctacaxeoi on RA. VSS, continues to be anuric. [...] to treatment See Adult Hemodialysis flowsheet in [facility] for further details and post assessment. Machine water alarm in place and functioning. Transducer pods intact and checked every 15min. Pt returned via bed. Chlorine/Chloramine water system checked every 4 hours. Outpatient Dialysis at [facility] Post treatment report given to [...] as tolerate. No heparin. Plan discussed with molder inflated ball and patient at the bedside. Interval History: [...] medications, labs and imaging. Frederick Alcaraz MD [facility] Consult[facility] - Nephrology Office phone :[phone] Pager: [phone] Jovita Blackmon RN - 10/11/2021 7:05 AM [...] Farah DO - 10/10/2021 12:36 PM CDT [facility] Hospitalist Progress Note Name: Jonatan Mejia Provider: [...] morbid obesity??who presents to the ED from [place] [facility] due to concerns of hematemesis and melanotic stool. He had just finished HD (took 1.2L) and presented to [place] ED due to concerns of dizziness and hematemesis. ?? Work up at [place] ED showed hgb of 7.5 and soft pressures in the 100's. CT abd pelvis showed normal distal esophagus, stomach and normal liver. No symptoms of obstruction or mass. There were moderate ascites in the dependent abdomen. He received NS bolus (500cc) and 1 unit(s) PRBC and transferred to [facility] ED. Work up in our ED [...] past 24 hour(s)). Dallin Farah DO MPH [facility] [place]ist [place] [address] 10/10/2021 Terry Wolfe MD - 10/10/2021 9:14 [...] mcg/hr (10/09/21 1126) Current active medications and [employer]IL[employer] medications reviewed, see medication list for details. [...] results for input(s): MAG in the last 06916 hours. No results for input(s): PHOS in the last 67390 hours. Recent Labs Lab Test 10/10/21 0722 [...] Farah DO - 10/09/2021 10:04 AM CDT [facility] Hospitalist Progress Note Name: Jonatan Mejia Provider: [...] morbid obesity??who presents to the ED from [place] [facility] due to concerns of hematemesis and melanotic stool. He had just finished HD (took 1.2L) and presented to [place] ED due to concerns of dizziness and hematemesis. ?? Work up at [place] ED showed hgb of 7.5 and soft pressures in the 100's. CT abd pelvis showed normal distal esophagus, stomach and normal liver. No symptoms of obstruction or mass. There were moderate ascites in the dependent abdomen. He received NS bolus (500cc) and 1 unit(s) PRBC and transferred to [facility] ED. Work up in our ED [...] past 24 hour(s)). Dallin Farah DO MPH [facility] Hospitalist Clark Lentz [facility] [place] [address] 10/09/2021 documented in this encounter H&P Notes Layne Rossi PA-C - 10/08/2021 9:27 PM CDT [facility] Admission History and Physical Examination NAME: [...] morbid obesity??who presents to the ED from [place] [facility] due to concerns of hematemesis and melanotic stool. He had just finished HD (took 1.2L) and presented to [place] ED due to concerns of dizziness and hematemesis. Work up at [place] ED showed hgb of 7.5 and soft bps in the 100's. CT abd pelvis showed normal distal esophagus, stomach and normal liver. No sxs of obstruction or mass. There were moderate ascites in the dependent abd. He received NS bolus (500cc) and 1u PRBC and transferred to [facility] ED. Work up in our ED [...] morbid obesity??who presents to the ED from [place] [facility] due to concerns of hematemesis and melanotic stool. He had just finished HD (took 1.2L) and presented to [place] ED due to concerns of dizziness and hematemesis. Work up at [place] ED showed hgb of 7.5 and soft bps in the 100's. CT abd pelvis showed normal distal esophagus, stomach and normal liver. No sxs of obstruction or mass. There were moderate ascites in the dependent abd. He received NS bolus (500cc) and 1u PRBC and transferred to [facility] ED. Work up in our ED [...] 50 MCG/ACT nasal spray Yes Yes Sig: Gridley 1 spray in nostril daily fluticasone-salmeterol (ADVAIR [...] 16 AST -- 15 Layne Rossi PA-C [facility] Medicine October 08, 2021 Securely message with the [employer] Console (learn more here) Text page via [facility] Paging/Directory Associated attestation - Fadi Viveros [...] 11:33 AM CDTAssociated Order(s): GASTROENTEROLOGY IP CONSULT [facility] Gastroenterology Consultation Joce Zamudio MD Patient [...] He had an EGD June [address] [facility]. Preoperative indication was Brannon's surveillance. 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 Biopsies were negative for Brannon's but did show esophagitis. Stomach showed diffuse gastritis with old blood consistent with erosive gastritis. Moderate duodenitis was noted. This was confirmed on biopsy and suspected be due to nonsteroidals likely aspirin. He reports an EGD in the remote past at [facility] that showed ulcers. He has ascites [...] Medication Sig Last Dose Taking? Auth Provider Prison End Date allopurinol (ZYLOPRIM) 100 MG tablet [...] Yes fluticasone (FLONASE) 50 MCG/ACT nasal spray Gridley 1 spray in nostril daily 10/07/2021 at [...] 15 ALKPHOS 116 Joce Zamudio MD, FACG [facility] [phone] Terry Wolfe MD - 10/09/2021 10:29 AM CDT Consult Date: 10/09/2021 REQUESTING PHYSICIAN: Dallin Farah MD. E COMMERCE ARCHITECT: Dallas Wolfe MD. REASON FOR CONSULTATION: End-stage renal disease, on hemodialysis. HISTORY OF PRESENT ILLNESS: This is a 73-year-old with end-stage renal disease who dialyzes Monday, Monday, Monday. [place] house alone. He drives [...] lives alone in a farm house [place]. REVIEW OF SYSTEMS: He feels relatively well [...] ETREMT Name: JONATAN MEJIA. MRN: [id number] Account: [id number] : 1945 Consult Date: 10/09/2021 Document: [id number] Terry Wolfe MD - 10/09/2021 10:24 AM CDTAssociated Order(s): NEPHROLOGY IP CONSULT See dictation. Confirmation # [id number]. documented in this encounter ED Notes Essence Osuna RN - 10/09/2021 1:16 PM CDT Pt received one unit of RBC this morning, tolerated well, no transfusion reaction. Stepdaregina jin, aware of patient transfer [place] [facility]. Advanced to clear liquid diet, tolerating well. Pt will be NPO at midnight for EGD on 10/10. Kaylee Trejo RN - 10/08/2021 11:05 PM CDT [facility] ED Nurse Handoff Report Jonatan Mejia [...] X 1. Lift room needed:No. Bariatric: No Carton Stapler Needed: No Isolation: No. Infection: Not Applicable. [...] Brianna, , and informed her of admission [facility] boarding status. She will visit tomorrow and [...] - 10/08/2021 6:30 PM CDT sent from [facility]. Dialysis patient with hypotension today. Given 500ml and 1 unit PRBC at [facility]. Florentino Ragsdale MD - 10/08/2021 6:23 PM [...] Pharmacy-Admission Medication History - Lisbeth Doddn Angie, [facility] - 10/08/2021 10:14 PM CDT Admission medication history interview status for this patient is complete. See [facility] admission navigator for allergy information, prior to admission medications and immunization status. Medication history interview done, indicate source(s): Patient Medication history resources (including written lists, pill bottles, clinic record): Evelin Caamcho Pharmacy: [id number] - [place], [place] - [address] [facility] [phone] Changes made to [employer] medication list: Added: ALL Actions taken by pharmacist (provider contacted, etc):None Additional medication history information:None Medication reconciliation/reorder completed by provider prior to medication history? No Prior to Admission medications Medication Sig Last Dose Taking? Auth Provider Prison End Date allopurinol (ZYLOPRIM) 100 MG tablet [...] Yes fluticasone (FLONASE) 50 MCG/ACT nasal spray Gridley 1 spray in nostril daily 10/07/2021 at [...] Diagnosis HEMODIALYSIS SINGLE TREATMENT Routine 10/11/2021 SETUP ([facility]) 4:33 PM CDT HEMODIALYSIS DIALYZER ([facility]) Routine 10/11/2021 2:28 PM CDT [...] B surface antigen (10/11/2021 7:46 AM CDT) [employer] Method Time Signature Hepatitis B Nonreactive Nonreactive [...] e Number [facility] C[facility]/PROT/ENDO [facility] [place] [place] [address] Core/Prot/Endo [address] [facility] [address], Room 3-580 (ABNORMAL) CBC with platelets (10/11/2021 6:36 AM CDT) [employer] Method Time Signature WBC Count 7.1 4.0 [...] Address City/State/ZIP Code Phon [place] [address] Care Lab [address] Lab (1st floor, no room number) (ABNORMAL) Basic metabolic panel (10/11/2021 6:36 AM CDT) [facility] Method Time Signature Sodium 134 133 [...] and gender (Brigette et al., NEJM, DOI: 10.1056/[id number]) Specimen Anatomical Collection Method / Collection Time Recei annie Time (Source) Location / Volume Laterality Blood STRUCTURE OF RIGHT Venipuncture / 10/11/2021 6:36 07/2 07/2021 6:42 HAND / Unknown Unknown AM CDT AM CDT Dallin Farah DO LAB - BLOOD ORDERABLES Performing Organization Address City/State/ZIP Code Phon [place] [phone] Care Lab [address] Lab (1st floor, no room number) [...] BEAKER POCT Performing Organization Address [facility]/ZIP Code Phon e Number [place] [address] Care Lab [address] Lab (1st floor, no room number) Surgical Pathology Exam (10/10/2021 8:58 AM CDT) Component Value Ref Test Analysis Performed Pathologis t Range Method Time At Signature Case Report Surgical Pathology Report ? Case: [id number] ? Authorizing Provider: ??Carb allo, Joce ? Collected: ? 10/10/2021 08:58 AM ? 2 8:22 AM NAHID DE LEON ? MD Edgard ? CDT Ordering Location: ? [facility] ?? Received: ?10/10/2021 09:42 AM ? Main [...] was 2 8:22 AM [facility] Laboratory Case Images 2 [...] by biopsy (specimen) Joce OTERO - LINDSAY OCLEY Performing Organization Address City/State/ZIP Code [place] [address] Care Lab [address] [facility] Lab (1st floor, no room number) UPPER GI ENDOSCOPY (10/10/2021 8:18 AM CDT) Component Value Ref Test Analysis Performed At [facility] Range Method Time Signature Upper GI [facility] RADIOLOGY Endoscopy RESULTS Patient Name: Jonatan Mejia ? Procedure Date: 09/18 8:18 AM ? Account Num flako: [id number] Date of : 1945 ?Admit Type: Inp [...] Model ?# [id number], Endora # 205, SN #[id number] was ?introduced through the mouth, and advanced [...] Note Initiated On: 10/10/2021 8:18 AM MRN: ?[id number] Procedure Date: ? 10/10/2021 8:18:14 AM Total [...] CBC with platelets (10/10/2021 7:22 AM CDT) [facility] Method Time Signature WBC Count 7.2 [...] City/State/ZIP Code Phon [place] [phone] Care Lab [address] Lab (1st floor, no room number) (ABNORMAL) Basic metabolic panel (10/10/2021 7:22 AM CDT) [facility] Method Time Signature Sodium 132 (L) [...] and gender (Brigette et al., NEJM, DOI: 10.1056/[id number]) Specimen Anatomical Collection Method / Collection Time Recei annie Time (Source) Location / Volume Laterality Blood STRUCTURE OF RIGHT Venipuncture / 10/10/2021 7:22 /06/2021 7:31 UPPER LIMB / Unknown AM CDT AM CDT Unknown Dallin Farah DO LAB - BLOOD ORDERABLES Performing Organization Address City/State/ZIP Code [place] [phone] Care Lab [address] Lab (1st floor, no room number) [...] LAB - BLOOD ORDERABLES Performing Organization Address City/[facility]/[place] [address] Care Lab [address] Lab (1st floor, no room number) [...] BLOOD ORDERABLES Performing Organization Address [facility]/[place] [address] Care Lab [address] Lab (1st floor, no room number) [...] LAB - BLOOD ORDERABLES Performing Organization Address City/[facility]/[place] [address] Care Lab [address] Lab (1st floor, no room number) Transfuse red blood cells (unit) No special requirements (10/09/2021 11:51 AM CDT) Dallin Simons MD BLOOD TRANSFUSION ORDERABLES Transfuse red blood cells (unit), 1 Units No special requirements (10/09/2021 11:51 AM CDT) Dallin Simons MD BLOOD TRANSFUSION ORDERABLES (ABNORMAL) CBC with platelets (10/09/2021 9:12 AM CDT) [facility] gist Method Time Signature WBC Count [...] City/State/ZIP Code Phon e [place] [phone] Care Lab [address] Lab (1st floor, no room number) (ABNORMAL) Basic metabolic panel (10/09/2021 9:12 AM CDT) [facility] Method Time Signature Sodium 134 133 [...] and gender (Brigette et al., NEJ, DOI: 10.1056/[id number]) Specimen Anatomical Collection Method / Collection Time Recei annie Time (Source) Location / Volume Laterality Blood STRUCTURE OF RIGHT Venipuncture / 10/09/2021 9:12 /05/2021 9:34 HAND / Unknown Unknown AM CDT AM CDT Layne Rossi PA-C LAB - BLOOD ORDERABLES Performing Organization Address City/State/ZIP Code Phon [place] [address] Care Lab [address] Lab (1st floor, no room number) Prepare red blood cells (unit) (10/09/2021 6:52 AM CDT) [facility] Method Time Signature CROSSMATCH Compatible RH BLOOD BANK UNIT ABO/RH O Neg RH BLOOD BANK Unit Number [id number] RH BLOOD BANK Unit Status Transfused RH BLOOD BANK Blood Red Blood Cells RH BLOOD Component Type BANK Product Code [id number] RH BLOOD BANK CODING SYSTEM [id number] RH BLOOD BANK UNIT TYPE ISBT 9500 RH BLOOD BANK ISSUE DATE AND [id number] RH BLOOD TIME BANK Specimen (Source) Anatomical Collection Method Collection Time Re ceived Time Location / / Volume Laterality 10/09/2021 6:52 AM CDT Dallin Simons MD BLOOD BANK PRODUCT ORDERABLE S Performing Organization Address City/State/ZIP Code Phon e Number RH BLOOD BANK [address] [place] [address] Transfuse red blood cells (unit) No special [...] RESULTS Atrial Rate 39 BPM RADIOLOGY RESULTS RI Interval ms RADIOLOGY RESULTS QRS Duration 126 ms RADIOLOGY RESULTS QT 442 ms RADIOLOGY RESULTS QTc 477 ms RADIOLOGY RESULTS P [place] degrees RADIOLOGY RESULTS R AXIS 107 degrees RADIOLOGY RESULTS T [place] 33 degrees RADIOLOGY RESULTS Interpretation Atrial fibrillation RADIO LOGY ECG Right bundle branch block RESU LTS Abnormal ECG No previous ECGs available Confirmed by - [facility] [place] Aravind PHYSICIAN ([id number]), television news video editor ANDRÉS HATCH ([id number]) on 10/11/2021 6:42:29 AM Specimen Anatomical Collection Method Collection Time Receive d Time (Source) Location / / Volume Laterality 10/09/2021 12:52 10/11/2021 6:42 AM CDT AM CDT Layne Ray Rossi PA-C ECG ORDERABLES Performing Organization Address City/[facility]/ZIP Code Phon e Number RADIOLOGY RESULTS Prepare red blood cells (unit) (10/08/2021 11:46 PM CDT) Patholo gist Method Time Signature CROSSMATCH Compatible RH BLOOD BANK UNIT ABO/RH O Neg RH BLOOD BANK Unit Number [id number] RH BLOOD BANK Unit Status Transfused RH BLOOD BANK Blood Red Blood Cells RH BLOOD Component Type BANK Product Code [id number] RH BLOOD BANK CODING SYSTEM [id number] RH BLOOD BANK UNIT TYPE ISBT 9500 RH BLOOD BANK ISSUE DATE AND RH BLOOD TIME BANK Specimen (Source) Anatomical Collection Method Collection Time Re ceived Time Location / / Volume Laterality 10/08/2021 11:46 PM CDT Layne Rossi PA-C BLOOD BANK PRODUCT ORDERABLE S Performing Organization Address City/[facility]/ZIP Code Phon e Number RH BLOOD BANK [address] [place] [address] (ABNORMAL) Hemoglobin (10/08/2021 10:47 PM CDT) athologist [...] LAB - BLOOD ORDERABLES Performing Organization Address City/[facility]/ZIP Code [place] [address] Care Lab [address] [facility] Lab (1st floor, no room number) [...] LAB - BEAKER POCT Performing Organization Address City/[facility]/ZIP Code Phon e Number RH LABORATORY [facility] [place] [address] Care Lab [address] Lab (1st floor, no room number) [...] the Xpert Xpress SARS-CoV-2 Assay on the [employer]. A dditional information about this [...] COVID-19. This test was validated by the [facility]. This laboratory is certified under the Clinical Laboratory Improvement Amendments of 1988 (CLIA-88) as qualified to perform high complexity laboratory testing. Florentino Ragsdale MD LAB - MICRO GENERAL ORDERABL ES Performing Organization Address City/State/ZIP Code Phon [place] [address] Care Lab [address] Lab (1st floor, no room number) [...] Address City/State/ZIP Code [place] [phone] Care Lab [address] Lab (1st floor, no room number) [...] LAB - BLOOD ORDERABLES Performing Organization Address City/[facility]/ZIP Code [place] [phone] Care Lab [address] Lab (1st floor, no room number) [...] LAB - BLOOD ORDERABLES Performing Organization Address City/[facility]/ZIP Code Phon [place] [address] Care Lab [address] Lab (1st floor, no room number) Adult Type and Screen (10/08/2021 7:02 PM CDT) [facility] Method Time Signature ABO/RH(D) O NEG 10/08/2021 RH BLOOD 6:39 PM CDT BANK Antibody Negative Negative 10/08/2021 RH BLOOD Screen 6:39 PM CDT BANK SPECIMEN [id number] 10/08/2021 RH BLOOD EXPIRATION 6:39 PM CDT BANK DATE Specimen Anatomical Collection Method / Collection Time Recei annie Time (Source) Location / Volume Laterality Blood STRUCTURE OF RIGHT Venipuncture / 10/08/2021 7:02 09/18 7:10 UPPER LIMB / Unknown PM CDT PM CDT Unknown Florentino Ragsdale MD LAB - BLOOD BANK TEST ORDER Performing Organization Address [facility]/ZIP Code Phon e Number RH BLOOD BANK [address] [place] [address] (ABNORMAL) Comprehensive metabolic panel (10/08/2021 7:02 PM CDT) [employer] Method Time Signature Sodium 136 133 - [...] and gender (Brigette et al., NEJ, DOI: 10.1056/[id number]) Specimen Anatomical Collection Method / Collection Time Recei annie Time (Source) Location / Volume Laterality Blood STRUCTURE OF RIGHT Venipuncture / 10/08/2021 7:02 09/18 7:10 UPPER LIMB / Unknown PM CDT PM CDT Unknown Florentino Ragsdale MD LAB - BLOOD ORDERABLES Performing Organization Address City/State/ZIP Code [place] [address] Care Lab [address] Lab (1st floor, no room number) [...] [id number] documented in this encounter Care Teams Basket Hand Weaver Relationship Specialty Start Date End Date Liban Leos PCP - General Family Medicine 10/08/21 [address] [place] [address] Ernie Pompa MD MD Nephrology 10/08/21 [address] [place] [address] documented as of this encounter
--- OUTSIDE RECORDS SUMMARY | 2021-11-11 09:33 | XMS_ITS | Encounter Summary ---
:1945 Author Organization [facility] Address [address] [place] [address] Care Team Providers Name Role Phone Liban Leos Primary Care Provider Ernie Pompa MD Unavailable Reason for Visit Reason Comments Hypotension Auth/Cert Specialty Diagnoses / Procedures Referred By Contact Refer red To Contact Med Surg Diagnoses UGI bleed UGI bleed 5 Medical Surgical [address] [place], [place] [address] Phone: Fax: Referral ID Status Reason Start Date Expiration Date Visits Requ ested Visits Authorized [id number] 1 1 Encounter Details Date Type Department Care Team Description 10/08/2021 - Hospital Encounter [facility] Florentino Ragsdale MD [facility] [address] [place] [address] UGI bleed 10/11/2021 [place] [address] Medical Fadi Viveros, DO [address] [place] [address] Surgical Dallin Simons MD [facility] [address] [place] [address] [address] Burt MD [facility] [address] [place], [place] [id number] [place] [address] Social History Tobacco Use Types [...] 10/11/2021 10:42 AM CDT Hospitalist Discharge Summary [facility] Jonatan Mejia Date of : 1945 Age: [...] daily fluticasone (FLONASE) 50 MCG/ACT nasal spray Holiday 1 spray in nostril daily fluticasone-salmeterol (ADVAIR [...] ulcer and??morbid obesity??who??presents to the ED from [place] [facility] due to concerns of hematemesis and melanotic stool. He had just finished HD (took 1.2L) and presented to [place] [facility] due to concerns of dizziness and hematemesis. ?? Work up at [place] [facility] showed hgb of 7.5 and soft pressures in the 100's. CT abd pelvis showed normal distal esophagus, stomach and normal liver. No symptoms of obstruction or mass. There were moderate ascites in the dependent abdomen. He received NS bolus (500cc) and 1 unit(s) PRBC and transferred to [facility]. 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 He does also have a history [...] was: 35 Minutes Dallin Farah DO [facility] Hospitalist [address] [address] 10/11/2021 documented in this encounter Medications at Time of Discharge Medication Sig Dispensed Refills Start Date End Date allopurinol (ZYLOPRIM) Take 100 mg by mouth 0 100 MG tablet daily atorvastatin (LIPITOR) Take 20 mg by mouth 0 11/19 20 MG tablet daily fluticasone (FLONASE) 50 Holiday 1 spray in 0 12/15 MCG/ACT nasal [...] walker and gait belt, denies pain, GREY, [id number] on RA. VSS, continues to be anuric. [...] checked every [address] hours[address] Dialysis at [facility] Post treatment report given to [...] as tolerate. No heparin. Plan discussed with artist woodblock and patient at the bedside. Interval History: [...] medications, labs and imaging. Frederick Alcaraz MD [facility] - Nephrology Office phone :[phone] Pager: [phone] Jovita Blackmon RN - 10/11/2021 7:05 AM [...] Farah DO - 10/10/2021 12:36 PM CDT [facility] Hospitalist Progress Note Name: Jonatan Mejia Provider: [...] morbid obesity??who presents to the ED from [place] [facility] due to concerns of hematemesis and melanotic stool. He had just finished HD (took 1.2L) and presented to [place] [facility] due to concerns of dizziness and hematemesis. ?? Work up at [place] [facility] showed hgb of 7.5 and soft pressures in the 100's. CT abd pelvis showed normal distal esophagus, stomach and normal liver. No symptoms of obstruction or mass. There were moderate ascites in the dependent abdomen. He received NS bolus (500cc) and 1 unit(s) PRBC and transferred to [facility]. Work up in our ED reveals [...] past 24 hour(s)). Dallin Farah DO [facility] Hospitalist [address] [facility] [address] 10/10/2021 Terry Wolfe MD - 10/10/2021 9:14 [...] mcg/hr (10/09/21 1126) Current active medications and [employer] medications reviewed, see medication list for details. [...] results for input(s): MAG in the last 87192 hours. No results for input(s): PHOS in the last 81059 hours. Recent Labs Lab Test 10/10/21 0722 [...] Farah DO - 10/09/2021 10:04 AM CDT [facility] Hospitalist Progress Note Name: Jonatan Mejia Provider: [...] morbid obesity??who presents to the ED from [place] [facility] due to concerns of hematemesis and melanotic stool. He had just finished HD (took 1.2L) and presented to [place] [facility] due to concerns of dizziness and hematemesis. ?? Work up at [place] [facility] showed hgb of 7.5 and soft pressures in the 100's. CT abd pelvis showed normal distal esophagus, stomach and normal liver. No symptoms of obstruction or mass. There were moderate ascites in the dependent abdomen. He received NS bolus (500cc) and 1 unit(s) PRBC and transferred to [facility]. Work up in our ED reveals [...] past 24 hour(s)). Dallin Farah DO [facility] Hospitalist [address] [place] [address] 10/09/2021 documented in this encounter H&P Notes Layne Rossi PA-C - 10/08/2021 9:27 PM CDT [facility] Admission History and Physical Examination NAME: [...] morbid obesity??who presents to the ED from [place] [facility] due to concerns of hematemesis and melanotic stool. He had just finished HD (took 1.2L) and presented to [place] [facility] due to concerns of dizziness and hematemesis. Work up at [place] [facility] showed hgb of 7.5 and soft bps in the 100's. CT abd pelvis showed normal distal esophagus, stomach and normal liver. No sxs of obstruction or mass. There were moderate ascites in the dependent abd. He received NS bolus (500cc) and 1u PRBC and transferred to [facility]. Work up in our ED reveals [...] morbid obesity??who presents to the ED from [place] [facility] due to concerns of hematemesis and melanotic stool. He had just finished HD (took 1.2L) and presented to [place] [facility] due to concerns of dizziness and hematemesis. Work up at [place] [facility] showed hgb of 7.5 and soft bps in the 100's. CT abd pelvis showed normal distal esophagus, stomach and normal liver. No sxs of obstruction or mass. There were moderate ascites in the dependent abd. He received NS bolus (500cc) and 1u PRBC and transferred to [facility]. Work up in our ED reveals [...] 50 MCG/ACT nasal spray Yes Yes Sig: Holiday 1 spray in nostril daily fluticasone-salmeterol (ADVAIR [...] -- 16 AST -- 15 Layne MARTIN-C [facility] Medicine October 08, 2021 Securely message with the [employer] Console (learn more here) Text page via [employer] Paging/Directory Associated attestation - Fadi Viveros DO [...] 11:33 AM CDTAssociated Order(s): GASTROENTEROLOGY IP CONSULT [facility] Gastroenterology Consultation Joce Zamudio MD Patient [...] He had an EGD June 28 at [facility]. Preoperative indication was Brannon's surveillance. 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 Biopsies were negative for Brannon's but did show esophagitis. Stomach showed diffuse gastritis with old blood consistent with erosive gastritis. Moderate duodenitis was noted. This was confirmed on biopsy and suspected be due to nonsteroidals likely aspirin. He reports an EGD in the remote past at [facility] that showed ulcers. He has ascites on [...] Medication Sig Last Dose Taking? Auth Provider Contract Negotiation Manager End Date allopurinol (ZYLOPRIM) 100 MG tablet [...] Yes fluticasone (FLONASE) 50 MCG/ACT nasal spray Holiday 1 spray in nostril daily 10/07/2021 at [...] AST 15 ALKPHOS 116 Joce Zamudio MD, [facility] [phone] Terry Wolfe MD - 10/09/2021 10:29 AM CDT Consult Date: 10/09/2021 REQUESTING PHYSICIAN: Dallin Farah MD. LIBRARY INFORMATION TECHNICIAN: Dallas [place] MD. REASON FOR CONSULTATION: End-stage [...] lives alone [place]. REVIEW OF SYSTEMS: He feels relatively well [...] MD MT: ETREMT Name: JONATAN MEJIA. Account: [id number] : 1945 Consult Date: 10/09/2021 Document: [id number] Terry Wolfe MD - 10/09/2021 10:24 AM CDTAssociated Order(s): NEPHROLOGY IP CONSULT See dictation. Confirmation # [id number]. documented in this encounter ED Notes Essence Osuna RN - 10/09/2021 1:16 PM CDT Pt received one unit of RBC this morning, tolerated well, no transfusion reaction. Stepdaughter Melanie jin, aware of patient transfer to [facility]. Advanced to clear liquid diet, tolerating well. Pt will be NPO at midnight for EGD on 10/10. Kaylee Trejo RN - 10/08/2021 11:05 PM CDT [facility] ED Nurse Handoff Report Jonatan Mejia [...] X 1. Lift room needed:No. Bariatric: No Firestopper Installer Needed: No Isolation: No. Infection: Not Applicable. [...] Brianna, , and informed her of admission [facility] boarding status. She will visit tomorrow [...] - 10/08/2021 6:30 PM CDT sent from [facility]. Dialysis patient with hypotension today. Given 500ml and 1 unit PRBC at [facility]. Florentino Ragsdale MD - 10/08/2021 6:23 PM [...] RN Pharmacy-Admission Medication History - Erlin Dodd, [facility] - 10/08/2021 10:14 PM CDT Admission medication history interview status for this patient is complete. See [facility] admission navigator for allergy information, prior to admission medications and immunization status. Medication history interview done, indicate source(s): Patient Medication history resources (including written lists, pill bottles, clinic record): Janice Pillbox Pharmacy: [id number] - [place], [place] - [address] [facility] [phone] Changes made to [employer] medication list: Added: ALL Actions taken by pharmacist (provider contacted, etc):None Additional medication history information:None Medication reconciliation/reorder completed by provider prior to medication history? No Prior to Admission medications Medication Sig Last Dose Taking? Auth Provider Assisted End Date allopurinol (ZYLOPRIM) 100 MG tablet [...] Yes fluticasone (FLONASE) 50 MCG/ACT nasal spray Holiday 1 spray in nostril daily 10/07/2021 at [...] B surface antigen (10/11/2021 7:46 AM CDT) [facility] Method Time Signature Hepatitis B Nonreactive [...] e Number [facility]/PROT/ENDO [place] [address] Core/Prot/Endo [address] [facility] [address] Building, Room 3-580 (ABNORMAL) CBC with platelets (10/11/2021 6:36 AM CDT) [facility] Method Time Signature WBC Count 7.1 [...] Unknown Unknown AM CDT AM CDT Dallin aFrah DO LAB - BLOOD ORDERABLES Performing Organization Address City/State/ZIP Code Phon [place] [address] Care Lab [address] Lab (1st floor, no room number) (ABNORMAL) Basic metabolic panel (10/11/2021 6:36 AM CDT) [facility] Method Time Signature Sodium 134 133 [...] and gender (Brigette et al., NEJM, DOI: 10.1056/[id number]) Specimen Anatomical Collection Method / Collection Time Recei annie Time (Source) Location / Volume Laterality Blood STRUCTURE OF RIGHT Venipuncture / 10/11/2021 6:36 2 07/2021 6:42 HAND / Unknown Unknown AM CDT AM CDT Dallin Farah DO LAB - BLOOD ORDERABLES Performing Organization Address City/State/ZIP Code [place] [address] Care Lab [address] Lab (1st floor, no room number) [...] LAB - BEAKER POCT Performing Organization Address City/[facility]/ZIP Code Phon e Number [place] [address] Care Lab [address] Lab (1st floor, no room number) Surgical Pathology Exam (10/10/2021 8:58 AM CDT) Component Value Ref Test Analysis Performed Pathologis t Range Method Time At Signature Case Report Surgical Pathology Report ? Case: [id number] ? Authorizing Provider: ??Carb allo, Joce ? Collected: ? 10/10/2021 08:58 AM ? 2 8:22 AM LABORA TORY ? MD Edgard ? CDT [facility] Received: ?10/10/2021 09:42 AM ? Main [...] entirely submitted in 1 cassette. ([facility]) Microscopic Microscopic examination Description was performed. 2 8:22 AM LABORATORY CDT Special -Negative for H. Pylori orga nisms on immunohistochemical stains. All controls stain appropriately. RH Stains 2 8:22 AM LABORATORY CDT Performing The technical component Labs of this testing was 2 8:22 AM LABORATORY completed at [facility] Laboratory Case Images 2 8:22 [...] Address City/State/ZIP Code Ph[place] [address] Care Lab [address] [facility] Lab (1st floor, no room number) UPPER GI ENDOSCOPY (10/10/2021 8:18 AM CDT) Component Value Ref Test Analysis Performed At [facility] Range Method Time Signature [facility] RADIOLOGY Endoscopy RESULTS Patient Name: Jonatan Mejia ? Procedure Date: 09/18 8:18 AM ? Account Num flako: [id number] Date of : 1945 ?Admit Type: Inp [...] Model ?# [id number], Endora # 205, SN #[id number] was ?introduced through the mouth, and advanced [...] Note Initiated On: 10/10/2021 8:18 AM MRN: ?[id number] Procedure Date: ? 10/10/2021 8:18:14 AM Total [...] CBC with platelets (10/10/2021 7:22 AM CDT) [facility] Method Time Signature WBC Count 7.2 [...] City/State/ZIP Code Phon [place] [address] Care Lab [address] Lab (1st floor, no room number) (ABNORMAL) Basic metabolic panel (10/10/2021 7:22 AM CDT) [facility] Method Time Signature Sodium 132 (L) [...] and gender (Brigette et al., NEJM, DOI: 10.1056/[id number]) Specimen Anatomical Collection Method / Collection Time Recei annie Time (Source) Location / Volume Laterality Blood STRUCTURE OF RIGHT Venipuncture / 10/10/2021 7:22 07/2 06/2021 7:31 UPPER LIMB / Unknown AM CDT AM CDT Unknown Dallin Farah DO LAB - BLOOD ORDERABLES Performing Organization Address City/State/ZIP Code [place] [address] Care Lab [address] [...] LAB - BLOOD ORDERABLES Performing Organization Address City/[facility]/[place] [address] Care Lab [address] Lab (1st floor, no room number) [...] LAB - BLOOD ORDERABLES Performing Organization Address City/[facility]/[place] [address] Care Lab [address] Lab (1st floor, no room number) [...] LAB - BLOOD ORDERABLES Performing Organization Address City/[facility]/[place] [address] Care Lab [address] Lab (1st floor, no room number) Transfuse red blood cells (unit) No special requirements (10/09/2021 11:51 AM CDT) Dallin Simons MD BLOOD TRANSFUSION ORDERABLES Transfuse red blood cells (unit), 1 Units No special requirements (10/09/2021 11:51 AM CDT) Dallin Simons MD BLOOD TRANSFUSION ORDERABLES (ABNORMAL) CBC with platelets (10/09/2021 9:12 AM CDT) [facility] gist Method Time Signature WBC Count [...] City/State/ZIP Code Phon [place] [address] Care Lab [address] Lab (1st floor, no room number) (ABNORMAL) Basic metabolic panel (10/09/2021 9:12 AM CDT) [facility] Method Time Signature Sodium 134 133 [...] and gender (Brigette et al., NEJM, DOI: 10.1056/[id number]) Specimen Anatomical Collection Method / Collection Time Recei annie Time (Source) Location / Volume Laterality Blood STRUCTURE OF RIGHT Venipuncture / 10/09/2021 9:12 07/2 05/2021 9:34 HAND / Unknown Unknown AM CDT AM CDT Layne Rossi PA-C LAB - BLOOD ORDERABLES Performing Organization Address City/State/ZIP Code Phon [place] [address] Care Lab [address] Lab (1st floor, no room number) Prepare red blood cells (unit) (10/09/2021 6:52 AM CDT) [facility] Method Time Signature CROSSMATCH Compatible RH BLOOD BANK UNIT ABO/RH O Neg RH BLOOD BANK Unit Number [id number] RH BLOOD BANK Unit Status Transfused RH BLOOD BANK Blood Red Blood Cells RH BLOOD Component Type BANK Product Code [id number] RH BLOOD BANK CODING SYSTEM [id number] RH BLOOD BANK UNIT TYPE ISBT 9500 RH BLOOD BANK ISSUE DATE AND [id number] RH BLOOD TIME BANK Specimen (Source) Anatomical Collection Method Collection Time Re ceived Time Location / / Volume Laterality 10/09/2021 6:52 AM CDT Dallin Simons MD BLOOD BANK PRODUCT ORDERABLE S Performing Organization Address City/State/ZIP Code Phon e Number RH BLOOD BANK [address] [place] [address] Transfuse red blood cells (unit) No special [...] RESULTS Atrial Rate 39 BPM RADIOLOGY RESULTS [place] Interval ms RADIOLOGY RESULTS QRS Duration 126 ms RADIOLOGY RESULTS QT 442 ms RADIOLOGY RESULTS QTc 477 ms RADIOLOGY RESULTS P [place] degrees RADIOLOGY RESULTS R AXIS 107 degrees RADIOLOGY RESULTS T [place] 33 degrees RADIOLOGY RESULTS Interpretation Atrial fibrillation RADIO LOGY ECG Right bundle branch block RESU LTS Abnormal ECG No previous ECGs available Confirmed by - EMERGENCY [place] PHYSICIAN ([id number]), online editor ANDRÉS HATCH ([id number]) on 10/11/2021 6:42:29 AM Specimen Anatomical Collection Method Collection Time Receive d Time (Source) Location / / Volume Laterality 10/09/2021 12:52 10/11/2021 6:42 AM CDT AM CDT Layne Ray Rossi PA-C ECG ORDERABLES Performing Organization Address City/State/ZIP Code Phon e Number RADIOLOGY RESULTS Prepare red blood cells (unit) (10/08/2021 11:46 PM CDT) [facility] gist Method Time Signature CROSSMATCH Compatible RH BLOOD BANK UNIT ABO/RH O Neg RH BLOOD BANK Unit Number [id number] RH BLOOD BANK Unit Status Transfused RH BLOOD BANK Blood Red Blood Cells RH BLOOD Component Type BANK Product Code [id number] RH BLOOD BANK CODING SYSTEM [id number] RH BLOOD BANK UNIT TYPE ISBT 9500 RH BLOOD BANK ISSUE DATE AND [id number] RH BLOOD TIME BANK Specimen (Source) Anatomical Collection Method Collection Time Re ceived Time Location / / Volume Laterality 10/08/2021 11:46 PM CDT Layne Rossi PA-C BLOOD BANK PRODUCT ORDERABLE S Performing Organization Address City/State/ZIP Code Phon e Number RH BLOOD BANK [address] [place] [address] (ABNORMAL) Hemoglobin (10/08/2021 10:47 PM CDT) athologist [...] City/State/ZIP Code Phon [place] [address] Care Lab [address] [facility] Lab (1st floor, no room number) [...] LAB - BEAKER POCT Performing Organization Address City/[facility]/ZIP Code Phon e [place] [address] Care Lab [address] Lab (1st floor, no room number) [...] the Xpert Xpress SARS-CoV-2 Assay on the [employer]. A dditional information about this [...] COVID-19. This test was validated by the [facility]. This laboratory is certified under the Clinical Laboratory Improvement Amendments of 1988 (CLIA-88) as qualified to perform high complexity laboratory testing. Florentino Ragsdale MD LAB - MICRO GENERAL ORDERABL ES Performing Organization Address City/[facility]/ZIP Code Phon [place] [address] Care Lab [address] Lab (1st floor, no room number) [...] Address City/State/ZIP Code Ph[place] [address] Care Lab [address] Lab (1st floor, no room number) [...] Address City/State/ZIP Code [place] [address] Care Lab [address] Lab (1st floor, no room number) [...] City/State/ZIP Code Phon [place] [address] Care Lab [address] [facility] [employer] Lab (1st floor, no room number) Adult Type and Screen (10/08/2021 7:02 PM CDT) [facility] [employer] Method Time Signature ABO/RH(D) O NEG 10/08/2021 RH BLOOD 6:39 PM CDT BANK Antibody Negative Negative 10/08/2021 RH BLOOD Screen 6:39 PM CDT BANK SPECIMEN [id number] 10/08/2021 RH BLOOD EXPIRATION 6:39 PM CDT BANK DATE Specimen Anatomical Collection Method / Collection Time Recei annie Time (Source) Location / Volume Laterality Blood STRUCTURE OF RIGHT Venipuncture / 10/08/2021 7:02 09/18 7:10 UPPER LIMB / Unknown PM CDT PM CDT Unknown Florentino Ragsdale MD LAB - BLOOD BANK TEST ORDER Performing Organization Address [facility]/ZIP Code Phon e Number RH BLOOD BANK [address] [place] [address] (ABNORMAL) Comprehensive metabolic panel (10/08/2021 7:02 PM CDT) [facility] [employer] Method Time Signature Sodium 136 133 - [...] and gender (Brigette et al., NEJM, DOI: 10.1056/[id number]) Specimen Anatomical Collection Method / Collection Time Recei annie Time (Source) Location / Volume Laterality Blood STRUCTURE OF RIGHT Venipuncture / 10/08/2021 7:02 09/18 7:10 UPPER LIMB / Unknown PM CDT PM CDT Unknown Florentino Ragsdale MD LAB - BLOOD ORDERABLES Performing Organization Address City/State/ZIP Code Phon [place] [phone] Care Lab [address] [facility] Lab (1st floor, no room number) documented [...] (ROCEPHIN) 2 g vial to attach to [facility] Bag 8:34 PM CDT 2 g [...] MIN PRN, op ioid reversal, Starting on [place] 10/10/21 at 1011, Administer intravenous route when [...] MIN PRN, op ioid reversal, Starting on [place] 10/10/21 at 1011, Administer intravenous route when [...] 2 MIN PRN, opioid reversal, Starting on [place] 10/10/21 at 1011, Administer intramuscular if an [...] 0143 documented in this encounter Care Teams Wool Hat Forming Machine Tender Relationship Specialty Start Date End Date Liban Leos PCP - General Family Medicine 10/08/21 [address] [place] [address] Ernie Pompa MD MD Nephrology 10/08/21 [address] [place] [address] documented as of this encounter
--- OUTSIDE RECORDS SUMMARY | 2021-11-11 09:33 | XMS_ITS | Encounter Summary ---
:1945 Author Organization [place] Address [address] [place] [address] Care Team Providers Name Role Phone Unavailable Primary Care Provider Unavailable Encounter Details Date Type Department Care Team Description 04/03/2019 Records - [facility] GERIATRIC SERVICES [facility] [address] [place] [address] [place], [place] [phone] [id number] Social History Tobacco Use Types Packs/Day Years Used Date Never Assessed Sex Assigned at Date Recorded Not on file documented as of this encounter Plan of Treatment Not on filedocumented as of this encounter Procedures Procedure Name Priority Date/Time Associated Diagnosis Comme nts BASIC METABOLIC Routine 04/04/2019 6:30 AM Result s for this PANEL VIDEO SYSTEM REPAIRER procedure are i n the results section. CBC WITH PLATELETS Routine 04/04/2019 6:30 AM Res ults for this VIDEO SYSTEM REPAIRER procedure are i n the results section. documented in this encounter Results (ABNORMAL) CBC with platelets (04/04/2019 6:30 AM VIDEO SYSTEM REPAIRER) [facility] Method Time Signature WBC 7.7 4.0 - 11.0 04/04/2019 HEALTH thou/uL 9:51 AM [facility] RBC Count 2.58 (L) 4.40 - 04/04/2019 HEALTH 6.20 9:51 AM [facility] LABORATORY Hemoglobin 8.0 (L) 14.0 - 04/04/2019 HEALTH 18.0 g/dL 9:51 AM [facility] Hematocrit 26.3 (L) 40.0 - 04/04/2019 HEALTH 54.0 % 9:51 AM [facility] MCV 102 (H) 80 - 100 04/04/2019 HEALTH fL 9:51 AM [facility] MCH 31.0 27.0 - 04/04/2019 HEALTH 34.0 pg 9:51 AM [facility] MCHC 30.4 (L) 32.0 - 04/04/2019 HEALTH 36.0 g/dL 9:51 AM [facility] RDW 20.2 (H) 11.0 - 04/04/2019 HEALTH 14.5 % 9:51 AM [facility] Platelet Count 142 140 - 440 04/04/2019 HEALTH thou/uL 9:51 AM [facility] Mean Platelet 11.0 8.5 - 12.5 04/04/2019 HEALTH Volume fL 9:51 AM [facility] Specimen Anatomical Collection Method / Collection Time Recei annie Time (Source) Location / Volume Laterality Blood specimen STRUCTURE OF RIGHT Venipuncture / 04/04/2019 6:30 9:35 (specimen) UPPER LIMB / Unknown AM VIDEO SYSTEM REPAIRER AM VIDEO SYSTEM REPAIRER Unknown Alison Hollins LAB - BLOOD ORDERABLES Performing Organization Address City/State/ZIP Code Phon [place] [address] [address] [facility] LABORATORY (ABNORMAL) Basic metabolic panel (04/04/2019 6:30 AM VIDEO SYSTEM REPAIRER) [facility] gist Method Time Signature Sodium 140 136 - 145 04/04/2019 HEALTH mmol/L 11:11 AM [facility] Potassium 4.8 3.5 - 5.0 04/04/2019 HEALTH mmol/L 11:11 AM [facility] Chloride 104 98 - 107 04/04/2019 HEALTH mmol/L 11:11 AM [facility] Carbon Dioxide 23 22 - 31 04/04/2019 HEALTH (CO2) mmol/L 11:11 AM [facility] Anion Gap 13 5 - 18 04/04/2019 HEALTH mmol/L 11:11 AM [facility] Glucose 84 70 - 125 04/04/2019 HEALTH mg/dL 11:11 AM [facility] Calcium 10.2 8.5 - 10.5 04/04/2019 HEALTH mg/dL 11:11 AM [facility] Urea Nitrogen 92 (H) 8 - 28 04/04/2019 HEALTH mg/dL 11:11 AM [facility] Creatinine 3.32 (H) 0.70 - 04/04/2019 HEALTH 1.30 mg/dL 11:11 AM [facility] GFR Estimate If 22 (L) >60 04/04/2019 HEALTH Black mL/min/1.7 11:[address] LABORATORY GFR Estimate 18 (L) >60 04/04/2019 HEALTH mL/min/1.7 11:[address] LABORATORY Specimen Anatomical Collection Method / Collection Time Recei annie Time (Source) Location / Volume Laterality Blood specimen STRUCTURE OF RIGHT Venipuncture / 04/04/2019 6:30 9:35 (specimen) UPPER LIMB / Unknown AM VIDEO SYSTEM REPAIRER AM VIDEO SYSTEM REPAIRER Unknown Narrative O LABORATORY - 04/04/2019 11:11 AM VIDEO SYSTEM REPAIRER Fasting Glucose reference range is 70-99 mg/dL per [place] [employer] (ADA) maryan soriano Alison Hollins LAB - BLOOD ORDERABLES Performing Organization Address City/State/ZIP Code [place] [id number] [place] [address] LABORATORY O LABORATORY [address] [place] [address], [facility] documented in this encounter Visit Diagnoses Not on filedocumented in this encounter
--- OUTSIDE RECORDS SUMMARY | 2021-11-11 09:33 | XMS_ITS | Encounter Summary ---
:1945 Author Organization [place] Address [address] [place] [address] Care Team Providers Name Role Phone Unavailable Primary Care Provider Unavailable Encounter Details Date Type Department Care Team Description 03/31/2019 Records - [facility] GERIATRIC SERVICES Laboratory [facility] [address] [place] [phone] [place], [place] [phone] [address] Social History Tobacco Use Types Packs/Day Years Used Date Never Assessed Sex Assigned at Date Recorded Not on file documented as of this encounter Plan of Treatment Not on filedocumented as of this encounter Procedures Procedure Name Priority Date/Time Associated Diagnosis Comme nts BASIC METABOLIC Routine 04/01/2019 7:55 AM Result s for this PANEL [employer] NURSING DIRECTOR procedure are i n the results section. CBC WITH PLATELETS Routine 04/01/2019 7:55 AM Res ults for this [employer] NURSING DIRECTOR procedure are i n the results section. documented in this encounter Results (ABNORMAL) CBC with platelets (04/01/2019 7:55 AM [employer]UR[employer] DIRECTOR) [facility] Method Time Signature WBC 7.6 4.0 - 11.0 04/01/2019 HEALTH thou/uL 12:59 PM [facility] LABORAT[facility] RBC Count 2.48 (L) 4.40 - 04/01/2019 HEALTH 6.20 12:59 PM [facility] LABORATORY Hemoglobin 7.7 (L) 14.0 - 04/01/2019 HEALTH 18.0 g/dL 12:59 PM [facility] Hematocrit 25.1 (L) 40.0 - 04/01/2019 HEALTH 54.0 % 12:59 PM [facility] MCV 101 (H) 80 - 100 04/01/2019 HEALTH fL 12:59 PM [facility] MCH 31.0 27.0 - 04/01/2019 HEALTH 34.0 pg 12:59 PM [facility] MCHC 30.7 (L) 32.0 - 04/01/2019 HEALTH 36.0 g/dL 12:59 PM [facility] RDW 19.7 (H) 11.0 - 04/01/2019 HEALTH 14.5 % 12:59 PM [facility] Platelet Count 137 (L) 140 - 440 04/01/2019 HEALTH thou/uL 12:59 PM [facility] Mean Platelet 10.7 8.5 - 12.5 04/01/2019 HEALTH Volume fL 12:59 PM [facility] Specimen Anatomical Collection Method / Collection Time Recei annie Time (Source) Location / Volume Laterality Blood specimen STRUCTURE OF RIGHT Venipuncture / 04/01/2019 7:55 (specimen) UPPER LIMB / Unknown AM [employer] DIRECT[employer] 12:23 PM [employer] Unknown Alison Hollins LAB - BLOOD ORDERABLES Performing Organization Address City/State/ZIP Code Phon e [place] [address] [address] [facility] LABORATORY (ABNORMAL) Basic metabolic panel (04/01/2019 7:55 AM [employer]UR[employer] DIRECT[employer]) [facility] Method Time Signature Sodium 137 136 - 145 04/01/2019 HEALTH mmol/L 1:17 PM [facility] Potassium 4.7 3.5 - 5.0 04/01/2019 HEALTH mmol/L 1:17 PM [facility] Chloride 105 98 - 107 04/01/2019 HEALTH mmol/L 1:17 PM [facility]ORAT[facility] Carbon Dioxide 22 22 - 31 04/01/2019 HEALTH (CO2) mmol/L 1:17 PM [facility] Anion Gap 10 5 - 18 04/01/2019 HEALTH mmol/L 1:17 PM [facility] Glucose 83 70 - 125 04/01/2019 HEALTH mg/dL 1:17 PM [facility] Calcium 10.1 8.5 - 10.5 04/01/2019 HEALTH mg/dL 1:17 PM [facility] Urea Nitrogen 93 (H) 8 - 28 04/01/2019 HEALTH mg/dL 1:17 PM [facility] Creatinine 3.02 (H) 0.70 - 04/01/2019 HEALTH 1.30 mg/dL 1:17 PM [facility] GFR Estimate If 25 (L) >60 04/01/2019 HEALTH Black mL/min/1.7 1:[address] LAB[address] GFR Estimate 21 (L) >60 04/01/2019 HEALTH mL/min/1.7 1:[address] LAB[address] Specimen Anatomical Collection Method / Collection Time Recei annie Time (Source) Location / Volume Laterality Blood specimen STRUCTURE OF RIGHT Venipuncture / 04/01/2019 7:55 (specimen) UPPER LIMB / Unknown AM [employer] NURSING DIRECTOR 12:23 PM [employer] DIRECT[employer] Unknown Narrative [facility] - 04/01/2019 1:17 PM [employer] NUR[employer] DIRECT[employer] Fasting Glucose reference range is 70-99 mg/dL per [place] Diabetes Association (ADA) maryan marrero. Alison Hollins LAB - BLOOD ORDERABLES Performing Organization Address City/State/ZIP Code Ph[place] [id number] [place] [address] LABORATORY [facility] [address] [place] [address], [facility] documented in this encounter Visit Diagnoses Not on filedocumented in this encounter
--- OUTSIDE RECORDS SUMMARY | 2021-11-11 09:33 | XMS_ITS | Encounter Summary ---
:1945 Author Organization [place] Address [address] [place] [address] Care Team Providers Name Role Phone Liban Leos Primary Care Provider Ernie Pompa MD Unavailable Reason for Visit Auth/Cert Specialty Diagnoses / Procedures Referred By Contact Refer red To Contact Med Surg Diagnoses UGI bleed UGI bleed Rh 5 Medical Surgical [address] [place], [place] [address] Phone: Fax: Referral ID Status Reason Start Date Expiration Date Visits Requ ested Visits Authorized [id number] 1 1 Encounter Details Date Type Department Care Team Description 10/10/[address] [facility] Olvin Mosley [place] PeriOp Services MD [place] [address] [place], [place] ANESTHESIA [phone] [address] [facility] [address] [place], [place] [address] Anesthesia Record Procedure Summary Procedure Name Responsible Anesthesia Start Anesthesia Stop Anesthesiologist Time Time ESOPHAGOGASTRODUODENOSCOPY Herman Mosley 10/10/21 0842 09/18 07/09 0918 biopsies (N/A Mouth) MD [place] Events Date Time Event Comment 10/10/2021 0830 ELECTRICAL SYSTEMS DESIGN ENGINEER Ready for Procedure 0842 An Start 0842 Present 0845 AN REASSESS I attest that I have identified and re-evaluated the patient immediately before the induction of anesthesia and I am satisfied that t he anesthetic plan is suitable for the patient's condition and procedure. The f irst vital signs recorded are pre- inducti on. Yamilka Bear APRN ELECTRICAL SYSTEMS DESIGN ENGINEER 0845 An Start Data 0857 Present 0912 [...] 0918 documented in this encounter Care Teams Heavy Duty Press Operator Relationship Specialty Start Date End Date Liban Leos PCP - General Family Medicine 10/08/21 [address] [place] [address] Ernie Pompa MD MD Nephrology 10/08/21 [address] [place] [address] documented as of this encounter
--- OUTSIDE RECORDS SUMMARY | 2021-11-11 09:33 | XMS_ITS | Encounter Summary ---
:1945 Author Organization [place] Address [facility] [place] [address] Care Team Providers Name Role Phone Unavailable Primary Care Provider Unavailable Encounter Details Date Type Department Care Team Description 04/07/2019 Records - [facility] GERIATRIC SERVICES Laboratory OF [facility] [address] [place] [address] [place], [place] [phone] [id number] Social History Tobacco Use Types Packs/Day Years Used Date Never Assessed Sex Assigned at Date Recorded Not on file documented as of this encounter Plan of Treatment Not on filedocumented as of this encounter Procedures Procedure Name Priority Date/Time Associated Diagnosis Comme nts BASIC METABOLIC Routine 04/08/2019 7:45 AM Result s for this PANEL SUPERVISOR ADVERTISING DISPATCH CLERKS procedure are i n the results section. CBC WITH PLATELETS Routine 04/08/2019 7:45 AM Res ults for this SUPERVISOR ADVERTISING DISPATCH CLERKS procedure are i n the results section. documented in this encounter Results (ABNORMAL) Basic metabolic panel (04/08/2019 7:45 AM SUPERVISOR ADVERTISING DISPATCH CLERKS) [facility] Method Time Signature Sodium 137 136 - 145 04/08/2019 HEALTH mmol/L 10:[address] [facility] LABORATORY Potassium 5.2 (H) 3.5 - 5.0 04/08/2019 HEALTH mmol/L 10:[address] [facility] LAB[facility]ORY Chloride 102 98 - 107 04/08/2019 HEALTH mmol/L 10:[address] [facility] Carbon Dioxide 22 22 - 31 04/08/2019 HEALTH (CO2) mmol/L 10:[address] [facility] LAB[facility] Anion Gap 13 5 - 18 04/08/2019 HEALTH mmol/L 10:[address] [facility]ORY Glucose 209 (H) 70 - 125 04/08/2019 HEALTH mg/dL 10:[address] [facility]ORY Calcium 10.3 8.5 - 10.5 04/08/2019 HEALTH mg/dL 10:[address] [facility] Urea Nitrogen 101 (H) 8 - 28 04/08/2019 HEALTH mg/dL 10:[address] [facility]ORY Creatinine 3.66 (H) 0.70 - 04/08/2019 HEALTH 1.30 mg/dL 10:[address] [facility] LABORATORY GFR Estimate If 20 (L) >60 04/08/2019 HEALTH Black mL/min/1.7 10:[address] LABORATORY GFR Estimate 16 (L) >60 04/08/2019 HEALTH mL/min/1.7 10:[address] LABORATORY Specimen Anatomical Collection Method / Collection Time Recei annie Time (Source) Location / Volume Laterality Blood specimen STRUCTURE OF RIGHT Venipuncture / 04/08/2019 7:45 (specimen) UPPER LIMB / Unknown AM SUPERVISOR ADVERTISING DISPATCH CLERKS 10:22 AM SUPERVISOR ADVERTISING DISPATCH CLERKS Unknown Narrative [facility] LABORATORY - 04/08/2019 10:53 AM SUPERVISOR ADVERTISING DISPATCH CLERKS Fasting Glucose reference range is 70-99 mg/dL per [place] Diabetes Association (ADA) maryan marrero. Alison Hollins LAB - BLOOD ORDERABLES Performing Organization Address City/State/ZIP Code Phon e Number [facility] [place] [address] [id number] [place] [address] [place] [address], [facility] (ABNORMAL) CBC with platelets (04/08/2019 7:45 AM SUPERVISOR ADVERTISING DISPATCH CLERKS) [facility] gist Method Time Signature WBC 5.2 4.0 - 11.0 04/08/2019 M HEALTH thou/uL 10:32 AM [facility] RBC Count 2.52 (L) 4.40 - 04/08/2019 HEALTH 6.20 10:32 AM [facility] LABORATORY Hemoglobin 7.9 (L) 14.0 - 04/08/2019 HEALTH 18.0 g/dL 10:32 AM [facility] Hematocrit 25.2 (L) 40.0 - 04/08/2019 HEALTH 54.0 % 10:32 AM [facility] MCV 100 80 - 100 04/08/2019 HEALTH fL 10:32 AM [facility] MCH 31.3 27.0 - 04/08/2019 HEALTH 34.0 pg 10:32 AM [facility] MCHC 31.3 (L) 32.0 - 04/08/2019 HEALTH 36.0 g/dL 10:32 AM [facility] RDW 19.4 (H) 11.0 - 04/08/2019 HEALTH 14.5 % 10:32 AM [facility] Platelet Count 140 140 - 440 04/08/2019 HEALTH [facility]/uL 10:32 AM [facility] Mean Platelet 10.4 8.5 - 12.5 04/08/2019 HEALTH Volume fL 10:32 AM [facility] Specimen Anatomical Collection Method / Collection Time Recei annie Time (Source) Location / Volume Laterality Blood specimen STRUCTURE OF RIGHT Venipuncture / 04/08/2019 7:45 (specimen) UPPER LIMB / Unknown AM SUPERVISOR ADVERTISING DISPATCH CLERKS 10:22 AM SUPERVISOR ADVERTISING DISPATCH CLERKS Unknown Alison Hollins LAB - BLOOD ORDERABLES Performing Organization Address City/State/ZIP Code Phon e Number [place] [address] [facility] [address] [facility] documented in this encounter Visit Diagnoses Not on filedocumented in this encounter
--- OUTSIDE RECORDS SUMMARY | 2021-11-11 09:34 | XMS_ITS | Encounter Summary ---
:1945 Author Organization [facility] Address [address] [place] [address] Care Team Providers Name Role Phone Unavailable Primary Care Provider Unavailable Encounter Details Date Type Department Care Team Description 07/21/2021 Orders Only [facility] Ernie Guzmán MD [address] [place] [address] [place], [place] [phone] (Wo rk) Social History Tobacco Use [...] KAMERON eKdrt/V 1.24 KAMERON eKt/V Gotch 1.24 KAMERON spKt/V 1.37 KAMERON (Daugirdas II) spKt/V Gotch [...] 07/24/2021 Unless otherwise specified, test(s) performed at: [facility], [address] [place] [address] CHEMICAL ECONOMIST: Alec Payan M.D. For any questions, please [...] 07/24/2021 Unless otherwise specified, test(s) performed at: [facility], [address] [place] [address] CHEMICAL ECONOMIST: Alec Payan M.D. For any questions, please call customer service at FREQUENCY:MONTHLY Resulting Agency Comment Specimen source: Serum Ernie Pompa MD LAB BLOOD ORDERABLES Performing Organization Address City/[facility] Phon e Number [facility] POST CHEMISTRY (07/21/2021) P athologist Signature BUN Post 14 6 - 19 [facility] Dialysis mg/dL [facility] Specimen (Source) Anatomical Collection Method Collection Time Re ceived Time Location / / Volume Laterality 07/21/2021 07/23/2021 4:30 PM CDT Narrative [facility] - 07/24/2021 Unless otherwise specified, test(s) performed at: [facility], [address] [place] [address] CHEMICAL ECONOMIST: Alec Payan M.D. For any questions, please call customer service at FREQUENCY:MONTHLY Resulting Agency Comment Specimen source: Plasma Ernie Pompa MD LAB BLOOD ORDERABLES Performing Organization Address City/[facility] Phon e Number [facility] IMMUNO CHEMISTRY (07/21/2021) P athologist Signature Hep B Surface Negative Negative [facility] Ag [facility] Specimen (Source) Anatomical Collection Method Collection Time Re ceived Time Location / / Volume Laterality 07/21/2021 07/23/2021 12:4 6 PM CDT Narrative [facility] - 07/23/2021 Unless otherwise specified, test(s) performed at: [facility], [address] [place] [address] CHEMICAL ECONOMIST: Alec Payan M.D. For any questions, please [...] 07/23/2021 Unless otherwise specified, test(s) performed at: [facility], [address] [place] [address] CHEMICAL ECONOMIST: Alec Payan M.D. For any questions, please call customer service at FREQUENCY:MONTHLY Resulting Agency Comment Specimen source: Blood Ernie Pompa MD LAB BLOOD ORDERABLES Performing Organization Address City/State/ZIP Code Phon e Number [facility] documented in this encounter Visit Diagnoses Not on filedocumented in this encounter
--- OUTSIDE RECORDS SUMMARY | 2021-11-11 09:34 | XMS_ITS | Clinical Summary ---
:1945 Author Organization [facility] Address [address] [facility] [address] [place] [address] Phone Care Team Providers Name Role Phone Unavailable Primary Care Provider Unavailable Encounters Date Type Specialty Care Team Description 11/10/2021 Treatment Ernie Pompa MD 11/03/2021 Orders Only NephErnie Mcocy MD 10/27/2021 Orders Only NephErnie Mccoy MD 10/27/2021 [...] Mccoy MD 08/11/2021 Treatment Ernie Pompa MD from Last 3 Months Social History [...] Date/Time Associated Diagnosis Comme nts HEMATOLOGY Routine 11/03/2021 Results for thi s procedure are i n the results section . CHEMISTRY Routine 10/27/2021 Results for thi s [...] from Last 3 Months Results (ABNORMAL) HEMATOLOGY (11/03/2021)Only the most recent of13 resultswithin the time period is included. Analysis Performed At Patho logist Time Signature Hemoglobin 10.0 (L) 14.0 - [facility] 18.0 g/dL [facility] Hemoglobin x 3 30.0 (L) 42.0 - [facility] 54.0 % [facility] Specimen (Source) Anatomical Collection Method Collection Time Re ceived Time Location / / Volume Laterality 11/03/2021 11/04/2021 6:47 AM CDT Narrative [facility] - 11/04/2021 Unless otherwise specified, test(s) performed at: [facility], [address] [place] [address], [place] [address] LABORATORY AIDE: Alhaji Noguera M.D., Ph.D For any questions, please call customer service at FREQUENCY:OTHER Resulting Agency Comment Specimen source: Blood Ernie Pompa MD LAB BLOOD ORDERABLES Performing Organization Address City/State/ZIP Code Phon e Number [facility] (ABNORMAL) [facility] Chemistry (10/27/2021)Only the most recent of12 results within the time period is included. P athologist Signature PTH 203 (H) 16 - 80 [facility] pg/mL [facility] Specimen (Source) Anatomical Collection Method Collection Time Re ceived Time Location / / Volume Laterality 10/27/2021 10/28/2021 7:55 AM CDT Narrative [facility] - 10/28/2021 Unless otherwise specified, test(s) performed at: [facility], [address] [place] [address], [place] [address] LABORATORY AIDE: Alhaji Noguera M.D., Ph.D For any questions, please call customer service at FREQUENCY:OTHER Resulting Agency Comment Specimen source: Plasma Ernie Pompa MD LAB BLOOD ORDERABLES Performing Organization Address City/State/ZIP Code Phon e Number [facility] HD KINETICS (10/20/2021)Only the most recent of4 resultswithin the time period is included. P athologist Signature % Urea 71 65 [...] 10/21/2021 Unless otherwise specified, test(s) performed at: [facility], [employer] [place] [address] LABORATORY AIDE: Alhaji Noguera M.D., Ph.D For any questions, please call customer service at FREQUENCY:MONTHLY Resulting Agency Comment Specimen source: Plasma Ernie Pompa MD LAB BLOOD ORDERABLES Performing Organization Address City/State/[facility] Code Phon [...] 10/21/2021 Unless otherwise specified, test(s) performed at: [facility], [employer] [place] [address] LABORATORY AIDE: Alhaji Noguera M.D., Ph.D For any questions, please call customer service at FREQUENCY:MONTHLY Resulting Agency Comment Specimen source: Plasma Ernie Pompa MD LAB BLOOD ORDERABLES Performing Organization Address City/[facility]/ZIP Code Phon e Number [facility] [...] Provider LAB BLOOD ORDERABLES Performing Organization Address City/[facility]/ZIP Code Phon e Number KAMERON SPECIAL CHEMISTRY [...] BANK TEST ORDERABL ES Performing Organization Address City/[facility]/ZIP Code Phon e Number [facility] from Last 3 Months Insurance Payer Benefit Plan Subscriber ID Effective Dates Phone Address Type / Group [place] [id number] 2018-[place] [phone] [address] [address] MEDICARE ADV ([id number]) [address] [place] [id number]
--- OUTSIDE RECORDS SUMMARY | 2021-11-11 09:34 | XMS_ITS | Encounter Summary ---
:1945 Author Organization [facility] Address [address] [place] [address] Care Team Providers Name Role Phone Unavailable Primary Care Provider Unavailable Encounter Details Date Type Department Care Team Description 10/13/2021 Treatment [facility] f Ernie Guzmán MD [address] [place] [address] [place], [place] [phone] (Wo rk) Social History Tobacco Use Types Packs/Day Years Used Date Smoking Tobacco: Unknown Comments: Smoking History Info:Patient n ot screened Sex Assigned at Date Recorded Not on file documented as of this encounter Miscellaneous Notes Dialysis Note - Ernie Pompa MD - 10/13/2021 12:07 PM CDT Date: Oct 13, 2021 Patient Name: Shaun Ocampo : 1945 Chart #: [id number] Sex: M This patient was personally seen for a basic visit as part of routine weekly dialysis care. A reviewof the dialysis treatment, blood pressure, estimated dry weight and recent lab values was made. These were discussed with the patient and staff as necessary. ASSISTANT STATISTICIAN: Ernie Pompa MD LOCATION: [phone] SCHEDULE: M-W-F 2nd Shift ACCESS: EDW: kg. [...] and do periodic extra UF treatments at [facility] rather than risk more hypotension post-tx with use of midodrine and additional UF during treatments. He has fistulagram last week, went well and access working well since. 08/11: Continues to have problems with fluid gains. we have spent considerable time discussing this, he is trying to work on this but can't seem to avoid large gains. Will go to [facility] for UF tomorrow, needs extra treatments every 2 weeks it looks like to maintain EDW. He does get SOB when >5K over dry weight in particular. 07/21/21: Continues to struggle with fluid gains, extra UF run scheduled tomorrow at [facility]. He does feel more SOB when fluid overloaded. No new symptoms otherwise, he is enjoying the nicer weather which allows him to do more activity and not sit at home and drink fluids which he thinks will help with IDWG's. 07/14/21: Continues to have high gains, unfortunately [facility] without staff to open tomorrow for extra [...] had steroid injections in knees yesterday at [facility]. To do PT as well. He pulled muscle in his lower arm on L side last week getting into car, hurt a lot but is improving. Fluid gains continue to be high, [facility] not open on this week, says he will do his best withlimiting salt/fluid. HE does feel SOB with exertion with extra fluid on, no orthopnea. 05/26/21: Has SOB when >5 Kg over dry weight, extra run last week at [facility] helped. Trying his best with fluid restriction. [...] extra run and we discussed going to [facility] tomorrow for UF only run and he [...] again today, may need extra run at [facility] if can't get down over next week. 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 06/10: Doing well overall, no new complaints, [...] Went to Urgent care -> ER in [place] yesterday,CT with R hydro but no obstructive [...] He had infiltration last week, dialyzed at [facility] on Sat and went well, [...] (08/20/21) Vascular Access Assessment: Type of access: [id number]/2019 Surgeon - Lary GARDNER 08/2021: [place] [facility] [place] angioplasty of stenosis completed Impression and [...] Name: Shaun Ocampo : 1945 Chart #: [id number] Sex: M Patient has transitioned out of the following type of facility within the past 30 days: Discharging Facility: [facility] Patient caregiver is present? If yes, relationship [...]
--- OUTSIDE RECORDS SUMMARY | 2021-11-11 09:34 | XMS_ITS | Encounter Summary ---
:1945 Author Organization [facility] Address [address] [place] [address] Care Team Providers Name Role Phone Unavailable Primary Care Provider Unavailable Encounter Details Date Type Department Care Team Description 08/11/2021 Treatment [facility] f Ernie Guzmán MD [address] [place] [address] [place], [place] [phone] [phone] (Wo rk) Social History Tobacco Use Types Packs/Day Years Used Date Smoking Tobacco: Unknown Comments: Smoking History Info:Patient n ot screened Sex Assigned at Date Recorded Not on file documented as of this encounter Miscellaneous Notes Dialysis Note - Enrie Pompa MD - 08/11/2021 10:15 AM CDT Date: August 11, 2021 Patient Name: Shaun Ocampo : 1945 Chart #: [id number] Sex: M This patient was personally seen [...] AM ) BP (sit): 97/38 AP(-) / BUSINESS OPERATIONS SPECIALIST: 177/134 Pulse: 67 Chairside data as of [...] 50 mg IVP 1X Week 07/26/2021 07/25/2022 WOUND CARE TECHNICIAN: Ernie Pompa MD LOCATION: [phone] SCHEDULE: -- 2nd Shift ACCESS: EDW: kg. DIALYZER: HD DURATION: NEEDLE SIZE: ANTICOAG: BATH: QB: ml/min QD: ml/min Subjective Tolerating dialysis well. 08/11: Continues to have problems with fluid gains. we have spent considerable time discussing this, he is trying to work on this but can't seem to avoid large gains. Will go to [place] for UF tomorrow, needs extra treatments every 2 weeks it looks like to maintain EDW. He does get SOB when >5K over dry weight in particular. 07/21/21: Continues to struggle with fluid gains, extra UF run scheduled tomorrow at [facility]. He does feel more SOB when fluid overloaded. No new symptoms otherwise, he is enjoying the nicer weather which allows him to do more activity and not sit at home and drink fluids which he thinks will help with IDWG's. 07/14/21: Continues to have high gains, unfortunately [facility] without staff to open tomorrow for extra [...] improving. Fluid gains continue to be high, [facility] not open on this week, says he will do his best withlimiting salt/fluid. HE does feel SOB with exertion with extra fluid on, no orthopnea. 05/26/21: Has SOB when >5 Kg over dry weight, extra run last week at [facility] helped. Trying his best with fluid restriction. [...] extra run and we discussed going to [place] tomorrow for UF only run and he [...] again today, may need extra run at [facility] if can't get down over next week. 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 06/10: Doing well overall, no new complaints, [...] Went to Urgent care -> ER in [place] yesterday,CT with R hydro but no obstructive [...] virtually with video during the COVID- pandemic. Udnn is doing well. He has same chronic [...] (06/23/21) Vascular Access Assessment: Type of access: [id number]/2019 Surgeon - Lary GARDNER Access working well Impression and Plan Stable dialysis overall, no changes to prescription made Parsabiv to continue, calcitriol increase as able with Ca lower on this to get PTH to goal but is improving and phos is controlled Extra UF run tomorrow in [place], ongoing extra UF runs will likely be necessary with inability toget to EDW consistently Ernie Pompa MD [ Signed And locked electronically On 08/11/2021 at 10:17:39 AM ] Transcribed: Ernie Pompa ( 08/11/2021 ) documented in this encounter Plan of Treatment Not on filedocumented as of this encounter Visit Diagnoses Not on filedocumented in this encounter
--- OUTSIDE RECORDS SUMMARY | 2021-11-11 09:34 | XMS_ITS | Encounter Summary ---
:1945 Author Organization [facility] Address [address] [place] [address] Care Team Providers Name Role Phone Unavailable Primary Care Provider Unavailable Encounter Details Date Type Department Care Team Description 09/08/2021 Orders Only [facility] f Ernie Guzmán MD [phone] [place] [address] [place], [place] [phone] (Wo rk) Social History Tobacco Use [...] 09/09/2021 Unless otherwise specified, test(s) performed at: [facility] [employer] [facility], [address] [place] [address] CHUCKING LATHE OPERATOR: Alec Payan M.D. For any questions, please call customer service at FREQUENCY:OTHER Resulting Agency Comment Specimen source: Blood Ernie Pompa MD LAB BLOOD ORDERABLES Performing Organization Address City/State/ZIP Code Phon e Number APS SPECTRA [facility] documented in this encounter Visit Diagnoses Not on filedocumented in this encounter
--- OUTSIDE RECORDS SUMMARY | 2021-11-11 09:34 | XMS_ITS | Encounter Summary ---
:1945 Author Organization [facility] Address [address] [place] [address] Care Team Providers Name Role Phone Unavailable Primary Care Provider Unavailable Encounter Details Date Type Department Care Team Description 08/04/2021 Orders [facility] O f Ernie Guzmán MD [phone] [place] [address] [place], [place] [phone] (Wo rk) Social History Tobacco Use [...] 08/06/2021 Unless otherwise specified, test(s) performed at: [facility], [address] [place] [address] SMOKE CHASER: Alec Payan M.D. For any questions, please call customer service at FREQUENCY:OTHER Resulting Agency Comment Specimen source: Serum Ernie Pompa MD LAB BLOOD ORDERABLES Performing Organization Address City/[facility]/ZIP Code Phon e Number APS SPECTRA [facility] (ABNORMAL) Spectrae Chemistry (08/04/2021) P athologist Signature PTH 986 (H) 16 - 80 [facility]PS SPECTRA pg/mL [facility] Specimen (Source) Anatomical Collection Method Collection Time Re ceived Time Location / / Volume Laterality 08/04/2021 2021 4:27 PM CDT Narrative APS SPECTRA [facility] - 2021 Unless otherwise specified, test(s) performed at: [facility], [address] [place], [place] [id number] SMOKE CHASER: Alec Payan M.D. For any questions, please call customer service at FREQUENCY:OTHER Resulting Agency Comment Specimen source: Plasma Ernie Pompa MD LAB BLOOD ORDERABLES Performing Organization Address [facility] Phon e Number APS SPECTRA [facility] [...] 2021 Unless otherwise specified, test(s) performed at: [facility], [address] [place] [address] SMOKE CHASER: Alec Payan M.D. For any questions, please call customer service at FREQUENCY:OTHER Resulting Agency Comment Specimen source: Blood Ernie Pompa MD LAB BLOOD ORDERABLES Performing Organization Address City/[facility] Phon e Number APS SPECTRA [facility] documented in this encounter Visit Diagnoses Not on filedocumented in this encounter
--- OUTSIDE RECORDS SUMMARY | 2021-11-11 09:34 | XMS_ITS | Encounter Summary ---
:1945 Author Organization [facility] Address [address] [place] [address] Care Team Providers Name Role Phone Unavailable Primary Care Provider Unavailable Encounter Details Date Type Department Care Team Description 10/06/2021 Orders [facility] O f Ernie Guzmán MD [phone] [place] [address] [place], [place] [phone] (Wo rk) Social History Tobacco Use [...] 10/07/2021 Unless otherwise specified, test(s) performed at: [facility], [address] [place] [address], [place] [address] PACKER INSPECTOR: Alhaji Noguera M.D., Ph.D For any questions, please call customer service at FREQUENCY:OTHER Resulting Agency Comment Specimen source: Blood Ernie Pompa MD LAB BLOOD ORDERABLES Performing Organization Address City/State/ZIP Code Phon e Number APS SPECTRA [facility] documented in this encounter Visit Diagnoses Not on filedocumented in this encounter
--- OUTSIDE RECORDS SUMMARY | 2021-11-11 09:34 | XMS_ITS | Encounter Summary ---
:1945 Author Organization [facility] Address [address] [place] [address] Care Team Providers Name Role Phone Unavailable Primary Care Provider Unavailable Encounter Details Date Type Department Care Team Description 08/25/2021 Orders [facility] f Ernie Guzmán MD [phone] [place] [address] [place], [place] [phone] (Wo rk) Social History Tobacco Use [...] 08/27/2021 Unless otherwise specified, test(s) performed at: [facility], [address] [place] [address] DIRECTOR BUILDING: Alec Payan M.D. For any questions, please call customer service at FREQUENCY:OTHER Resulting Agency Comment Specimen source: Blood Ernie Pompa MD LAB BLOOD ORDERABLES Performing Organization Address City/State/ZIP Code Phon e Number APS SPECTRA [facility] documented in this encounter Visit Diagnoses Not on filedocumented in this encounter
--- OUTSIDE RECORDS SUMMARY | 2021-11-11 09:34 | XMS_ITS | Encounter Summary ---
:1945 Author Organization [facility] Address [address] [place] [address] Care Team Providers Name Role Phone Unavailable Primary Care Provider Unavailable Encounter Details Date Type Department Care Team Description 08/30/2021 Orders [facility] O f Ernie Guzmán MD [phone] [place] [address] [place], [place] [phone] (Wo rk) Social History Tobacco Use [...] 08/31/2021 Unless otherwise specified, test(s) performed at: [facility], [address] [place] [address] DIRECTOR OF PRODUCT DEVELOPMENT: Alec Payan M.D. For any questions, please call customer service at FREQUENCY:OTHER Resulting Agency Comment Specimen source: Serum Ernie Popma MD LAB BLOOD ORDERABLES Performing Organization Address City/[facility] Phon e Number APS SPECTRA [facility] (ABNORMAL) Spectrae Chemistry (08/30/2021) athologist Signature BUN 55 (H) 6 - 19 APS SPECTRA mg/dL [facility] Specimen (Source) Anatomical Collection Method Collection Time Re ceived Time Location / / Volume Laterality 08/30/2021 08/31/2021 5:11 PM CDT Narrative APS SPECTRA [facility] - 08/31/2021 Unless otherwise specified, test(s) performed at: [facility], [address] [place] [address] DIRECTOR OF PRODUCT DEVELOPMENT: Alec Payan M.D. For any questions, please call customer service at FREQUENCY:OTHER Resulting Agency Comment Specimen source: Serum Ernie Pompa MD LAB BLOOD ORDERABLES Performing Organization Address City/[facility] Phon e Number APS SPECTRA [facility] POST CHEMISTRY (08/30/2021) athologist Signature BUN Post 16 6 - 19 APS SPECTRA Dialysis mg/dL [facility] Specimen (Source) Anatomical Collection Method Collection Time Re ceived Time Location / / Volume Laterality 08/30/2021 08/31/2021 1:52 PM CDT Narrative APS SPECTRA [facility] - 08/31/2021 Unless otherwise specified, test(s) performed at: [facility], [address] [place] [address] DIRECTOR OF PRODUCT DEVELOPMENT: Alec Payan M.D. For any questions, please call customer service at FREQUENCY:OTHER Resulting Agency Comment Specimen source: Plasma Ernie Pompa MD LAB BLOOD ORDERABLES Performing Organization Address City/State/ZIP Code Phon e Number APS SPECTRA [facility] documented in this encounter Visit Diagnoses Not on filedocumented in this encounter
--- OUTSIDE RECORDS SUMMARY | 2021-11-11 09:34 | XMS_ITS | Encounter Summary ---
:1945 Author Organization [facility] Address [address] [place] [address] Care Team Providers Name Role Phone Unavailable Primary Care Provider Unavailable Encounter Details Date Type Department Care Team Description 08/18/2021 Orders [facility] f Ernie Guzmán MD [phone] [place] [address] [place], [place] [phone] (Wo rk) Social History Tobacco Use [...] Provider LAB BLOOD ORDERABLES Performing Organization Address City/[facility]/ZIP Code Phon e Number [facility] (08/18/2021) P athologist Signature % Urea 67 65 - 80 % APS SPECTRA Reduction [facility] Specimen (Source) Anatomical Collection Method Collection Time Re ceived Time Location / / Volume Laterality 08/18/2021 08/20/2021 12:5 8 AM CDT Resulting Agency Comment Specimen source: Plasma Ernie Pompa MD LAB BLOOD ORDERABLES Performing Organization Address [facility]/ZIP Code Phon e Number APS SPECTRA [facility] POST CHEMISTRY (08/18/2021) P athologist Signature BUN Post 17 6 - 19 APS SPECTRA Dialysis mg/dL [facility] Specimen (Source) Anatomical Collection Method Collection Time Re ceived Time Location / / Volume Laterality 08/18/2021 08/20/2021 12:5 8 AM CDT Narrative APS SPECTRA [facility] - 08/20/2021 Unless otherwise specified, test(s) performed at: [facility], [address] [place] [address] BUFFET RUNNER: Alec Payan M.D. For any questions, please call customer service at FREQUENCY:MONTHLY Resulting Agency Comment Specimen source: Plasma Ernie Pompa MD LAB BLOOD ORDERABLES Performing Organization Address City/[facility]/ZIP Code Phon e Number APS [...] 08/20/2021 Unless otherwise specified, test(s) performed at: [facility], [address] [place] [address] BUFFET RUNNER: Alec Payan M.D. For any questions, please call customer service at FREQUENCY:MONTHLY Resulting Agency Comment Specimen source: Blood Ernie Pompa MD LAB BLOOD ORDERABLES Performing Organization Address City/[facility] Phon e Number APS SPECTRA [facility] (ABNORMAL) Spectrae Chemistry (08/18/2021) P athologist Signature PTH 766 (H) 16 - 80 APS SPECTRA pg/mL [facility] Specimen (Source) Anatomical Collection Method Collection Time Re ceived Time Location / / Volume Laterality 08/18/2021 08/19/2021 8:21 PM CDT Narrative APS SPECTRA [facility] - 08/20/2021 Unless otherwise specified, test(s) performed at: [facility], [address] [place] [address] BUFFET RUNNER: Alec Payan M.D. For any questions, please call customer service at FREQUENCY:MONTHLY Resulting Agency Comment Specimen source: Plasma Ernie Pompa MD LAB BLOOD ORDERABLES Performing Organization Address City/[facility] Phon e Number [...] 08/20/2021 Unless otherwise specified, test(s) performed at: [facility], [address] [place] [address] BUFFET RUNNER: Alec Payan M.D. For any questions, please [...] 08/19/2021 Unless otherwise specified, test(s) performed at: [facility], [address] [place] [address] BUFFET RUNNER: Alec Payan M.D. For any questions, please call customer service at FREQUENCY:MONTHLY Resulting Agency Comment Specimen source: Serum Ernie Pompa MD LAB BLOOD ORDERABLES Performing Organization Address City/State/ZIP Code Phon e Number APS SPECTRA [facility] documented in this encounter Visit Diagnoses Not on filedocumented in this encounter
--- OUTSIDE RECORDS SUMMARY | 2021-11-11 09:34 | XMS_ITS | Encounter Summary ---
:1945 Author Organization [facility] Address [address] [place] [address] Care Team Providers Name Role Phone Unavailable Primary Care Provider Unavailable Encounter Details Date Type Department Care Team Description 10/27/2021 Treatment [facility] O f Ernie Guzmán MD [address] [place] [address] [place], [place] [phone] [phone] (Wo rk) Social History Tobacco Use Types Packs/Day Years Used Date Smoking Tobacco: Unknown Comments: Smoking History Info:Patient n ot screened Sex Assigned at Date Recorded Not on file documented as of this encounter Miscellaneous Notes Dialysis Note - Ernie Pompa MD - 10/27/2021 10:07 AM CDT Date: Oct 27, 2021 Patient Name: Shaun Ocampo : 1945 Chart #: [id number] Sex: M This patient was personally seen [...] AM ) BP (sit): 99/43 AP(-) / DIE MAKER ELECTRONIC: 176/154 Pulse: 62 Chairside data as of [...] Values 08/27/2021 05/28/2021 04/23/2021 Access Flow [id number] 110 1240 Treatment Medication Orders Medication Sig Start [...] mcg IVP Every 2 weeks 10/27/2021 10/26/2022 FOOT WORKER: Ernie Pompa MD LOCATION: [place] [phone] SCHEDULE: -W- 2nd Shift EDW: kg. DIALYZER: HD DURATION: NEEDLE SIZE: ANTICOAG: BATH: QB: ml/min QD: ml/min Subjective Tolerating dialysis well. 10/27/21: He is doing much better after extra UF run last week at [place]. BP adequate, challengingEDW today. His breathing is improved. Also went [facility] and they dressedwounds and he has follow-up and instructions for dressings and cares. He has no new symptoms and otherwise feels well. 10/13: Had GI bleeding on Monday, went to ER after dialysis, admitted at [facility], [place] had 3u blood, EGDwithout obvious source, ASA [...] and do periodic extra UF treatments at [place] rather than risk more hypotension post-tx with use of midodrine and additional UF during treatments. He has fistulagram last week, went well and access working well since. 08/11: Continues to have problems with fluid gains. we have spent considerable time discussing this, he is trying to work on this but can't seem to avoid large gains. Will go to [place] for UF tomorrow, needs extra treatments every 2 weeks it looks like to maintain EDW. He does get SOB when >5K over dry weight in particular. 07/21/21: Continues to struggle with fluid gains, extra UF run scheduled tomorrow at [place]. He does feel more SOB when fluid overloaded. No new symptoms otherwise, he is enjoying the nicer weather which allows him to do more activity and not sit at home and drink fluids which he thinks will help with IDWG's. 07/14/21: Continues to have high gains, unfortunately [place] without staff to open tomorrow for extra [...] improving. Fluid gains continue to be high, [place] not open on this week, says he will do his best withlimiting salt/fluid. HE does feel SOB with exertion with extra fluid on, no orthopnea. 05/26/21: Has SOB when >5 Kg over dry weight, extra run last week at [place] helped. Trying his best with fluid restriction. [...] extra run and we discussed going to [place] tomorrow for UF only run and he [...] again today, may need extra run at [place] if can't get down over next week. 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 06/10: Doing well overall, no new complaints, [...] to Urgent care -> ER in [place] yesterday,CT with R hydro but no obstructive [...] prescription. Vascular Access Assessment Type of access: [id number]/2019 Surgeon - Lary GARDNER 08/2021: fistulagram at [facility] with angioplasty of stenosis [...] below goal. Intact PTH is above goal. Senior Solutions Engineer will adjust binders and vitamin D per [...] high Extra UF run needed occasionally at [place] when they are open, did last week [...]
--- OUTSIDE RECORDS SUMMARY | 2021-11-11 09:34 | XMS_ITS | Encounter Summary ---
:1945 Author Organization [facility] Address [address] [place] [address] Care Team Providers Name Role Phone Unavailable Primary Care Provider Unavailable Encounter Details Date Type Department Care Team Description 08/11/2021 Orders Only [facility] O f Ernie Guzmán MD [phone] [place] [address] [place], [place] [phone] (Wo rk) Social History Tobacco Use [...] 08/12/2021 Unless otherwise specified, test(s) performed at: [facility], [address] [place] [address] OUTDOOR LANDSCAPE ARCHITECT: Alec Payan M.D. For any questions, please call customer service at FREQUENCY:OTHER Resulting Agency Comment Specimen source: Blood Ernie Pompa MD LAB BLOOD ORDERABLES Performing Organization Address City/State/ZIP Code Phon e Number APS SPECTRA [facility] documented in this encounter Visit Diagnoses Not on filedocumented in this encounter
--- OUTSIDE RECORDS SUMMARY | 2021-11-11 09:34 | XMS_ITS | Encounter Summary ---
:1945 Author Organization [facility] Address [address] [place] [address] Care Team Providers Name Role Phone Unavailable Primary Care Provider Unavailable Encounter Details Date Type Department Care Team Description 08/25/2021 Treatment [facility] f Ernie Guzmán MD [address] [place] [address] [place], [place] [phone] (Wo rk) Social History Tobacco Use Types Packs/Day Years Used Date Smoking Tobacco: Unknown Comments: Smoking History Info:Patient n ot screened Sex Assigned at Date Recorded Not on file documented as of this encounter Miscellaneous Notes Dialysis Note - Ernie Pompa MD - 08/25/2021 10:16 AM CDT Date: Aug 25, 2021 Patient Name: Shaun Ocampo : 1945 Chart #: [id number] Sex: M This patient was personally seen [...] AM ) BP (sit): 118/41 AP(-) / HEALTH CARE ANALYST: 171/153 Pulse: 69 Chairside data as of [...] mcg IVP Every 2 weeks 08/25/2021 08/24/2022 DERRICK BARGE OPERATOR: Ernie Pompa MD LOCATION: [phone] SCHEDULE: -- 2nd Shift EDW: kg. DIALYZER: [...] and do periodic extra UF treatments at [facility] rather than risk more hypotension post-tx with use of midodrine and additional UF during treatments. He has fistulagram last week, went well and access working well since. 08/11: Continues to have problems with fluid gains. we have spent considerable time discussing this, he is trying to work on this but can't seem to avoid large gains. Will go to [facility] for UF tomorrow, needs extra treatments every 2 weeks it looks like to maintain EDW. He does get SOB when >5K over dry weight in particular. 07/21/21: Continues to struggle with fluid gains, extra UF run scheduled tomorrow at [facility]. He does feel more SOB when fluid overloaded. No new symptoms otherwise, he is enjoying the nicer weather which allows him to do more activity and not sit at home and drink fluids which he thinks will help with IDWG's. 07/14/21: Continues to have high gains, unfortunately [facility] without staff to open tomorrow for extra [...] improving. Fluid gains continue to be high, [facility] not open on this week, says he will do his best withlimiting salt/fluid. HE does feel SOB with exertion with extra fluid on, no orthopnea. 05/26/21: Has SOB when >5 Kg over dry weight, extra run last week at [facility] helped. Trying his best with fluid restriction. [...] extra run and we discussed going to [facility] tomorrow for UF only run and he [...] again today, may need extra run at [facility] if can't get down over next week. 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 06/10: Doing well overall, no new complaints, [...] Went to Urgent care -> ER in [place] yesterday,CT with R hydro but no obstructive [...] prescription. Vascular Access Assessment Type of access: Njoawlz94/2019 Surgeon - Lary GARDNER 08/2021: fistulagram at [facility] with angioplasty of stenosis completed Anemia Assessment [...] at goal. Intact PTH is above goal. Orthopedic Radiologic Technologist will adjust binders and vitamin D per [...] maintain euvolemia, extra UF run planned at [facility] when they areopen either tomorrow or next week on Transplant Status: Patient is not a candidate. Weight, co-morbidities, age Resuscitation Status Stable dialysis, no changes to prescription Extra UF run at [facility] Continue work on lower IDWG's Titrate Vit D and Parabiv to achieve PTH <600 No irbesartan with hypotension Ernie Pompa MD [ Signed And locked electronically On 08/25/2021 at 10:22:00 AM ] Transcribed: Ernie Pompa ( 08/25/2021 ) documented in this encounter Plan of Treatment Not on filedocumented as of this encounter Visit Diagnoses Not on filedocumented in this encounter
--- OUTSIDE RECORDS SUMMARY | 2021-11-11 09:34 | XMS_ITS | Encounter Summary ---
:1945 Author Organization [facility] Address [address] [place] [address] Care Team Providers Name Role Phone Unavailable Primary Care Provider Unavailable Encounter Details Date Type Department Care Team Description 10/20/2021 Orders Only [facility] f Ernie Guzmán MD [address] [place] [address] [place], [place] [phone] (Wo rk) Social History Tobacco Use [...] BLOOD ORDERABLES Performing Organization Address City/[facility]/ZIP Code Phon e Number APS SPECTRA [facility] POST CHEMISTRY (10/20/2021) athologist Signature BUN Post 11 6 - 19 APS SPECTRA Dialysis mg/dL [facility] Specimen (Source) Anatomical Collection Method Collection Time Re ceived Time Location / / Volume Laterality 10/20/2021 10/21/2021 3:38 AM CDT Narrative APS SPECTRA [facility] - 10/21/2021 Unless otherwise specified, test(s) performed at: [facility], [address] [place] [address], [place] [address] TRANSFORMER MECHANIC: Alhaji Noguera M.D., Ph.D For any questions, please call customer service at FREQUENCY:MONTHLY Resulting Agency Comment Specimen source: Plasma Ernie Pompa MD LAB BLOOD ORDERABLES Performing Organization Address City/State/ZIP Code Phon e Number APS SPECTRA [facility] (ABNORMAL) Spectrae Chemistry (10/20/2021) [facility] gist Method Time Signature BUN 38 (H) [...] 10/21/2021 Unless otherwise specified, test(s) performed at: [facility], [address] [place] [address], [place] [address] TRANSFORMER MECHANIC: Alhaji Noguera M.D., Ph.D For any questions, [...] 10/21/2021 Unless otherwise specified, test(s) performed at: [facility], [address] [place] [address], [place] [address] TRANSFORMER MECHANIC: Alhaji Noguera M.D., Ph.D For any questions, please call customer service at FREQUENCY:MONTHLY Resulting Agency Comment Specimen source: Blood Ernie Pompa MD LAB BLOOD ORDERABLES Performing Organization Address [facility] Phon e Number APS SPECTRA [facility] IMMUNO CHEMISTRY (10/20/2021) P athologist Signature Hep B Surface Negative Negative APS SPECTRA Ag [facility] Specimen (Source) Anatomical Collection Method Collection Time Re ceived Time Location / / Volume Laterality 10/20/2021 10/21/2021 3:50 AM CDT Narrative APS SPECTRA [facility] - 10/21/2021 Unless otherwise specified, test(s) performed at: [facility], [address] [place] [address], [place] [address] TRANSFORMER MECHANIC: Alhaji Noguera M.D., Ph.D For any questions, please call customer service at FREQUENCY:MONTHLY Resulting Agency Comment Specimen source: Plasma Ernie Pompa MD LAB BLOOD ORDERABLES Performing Organization Address [facility]/ZIP Code Phon e Number APS SPECTRA [facility] documented in this encounter Visit Diagnoses Not on filedocumented in this encounter
--- OUTSIDE RECORDS SUMMARY | 2021-11-11 09:34 | XMS_ITS | Encounter Summary ---
:1945 Author Organization [facility] Address [address] [place] [address] Care Team Providers Name Role Phone Unavailable Primary Care Provider Unavailable Encounter Details Date Type Department Care Team Description 07/28/2021 Orders Only [facility] f Ernie Guzmán MD [phone] [place] [address] [place], [place] [phone] (Wo rk) Social History Tobacco Use [...] in this encounter Results (ABNORMAL) HEMATOLOGY (07/28/2021) [facility] gist Method Time Signature Hemoglobin 9.9 [...] 07/29/2021 Unless otherwise specified, test(s) performed at: [facility], [address] [place] [address] BOTTLE HOP: Alec Payan M.D. For any questions, please call customer service at FREQUENCY:OTHER Resulting Agency Comment Specimen source: Blood Ernie Pompa MD LAB BLOOD ORDERABLES Performing Organization Address City/State/ZIP Code Phon e Number APS SPECTRA [facility] documented in this encounter Visit Diagnoses Not on filedocumented in this encounter
--- OUTSIDE RECORDS SUMMARY | 2021-11-11 09:34 | XMS_ITS | Encounter Summary ---
:1945 Author Organization [facility] Address [address] [place] [address] Care Team Providers Name Role Phone Unavailable Primary Care Provider Unavailable Encounter Details Date Type Department Care Team Description 09/22/2021 Orders Only [facility] f Ernie Guzmán MD [phone] [place] [address] [place], [place] [phone] (Wo rk) Social History Tobacco Use [...] 09/24/2021 Unless otherwise specified, test(s) performed at: [facility], [address] [place] [address], [place] [address] SUPERVISOR CUSTOMER SERVICES: Alhaji Noguera M.D., Ph.D For any questions, please call customer service at FREQUENCY:MONTHLY Resulting Agency Comment Specimen source: Plasma Ernie Pompa MD LAB BLOOD ORDERABLES Performing Organization Address City/[facility]/ZIP Code Phon e Number APS [...] APS SPECTRA [facility] (ABNORMAL) Spectrae Chemistry (09/22/2021) [facility] gist Method Time Signature BUN 41 (H) [...] 09/24/2021 Unless otherwise specified, test(s) performed at: [facility], [address] [place] [address], [place] [address] SUPERVISOR CUSTOMER SERVICES: Alhaji Noguera M.D., Ph.D For any questions, please call customer service at FREQUENCY:MONTHLY Resulting Agency Comment Specimen source: Serum Ernie Pompa MD LAB BLOOD ORDERABLES Performing Organization Address [facility] Phon e Number APS SPECTRA [facility] POST CHEMISTRY (09/22/2021) P athologist Signature BUN Post 12 6 - 19 APS SPECTRA Dialysis mg/dL [facility] Specimen (Source) Anatomical Collection Method Collection Time Re ceived Time Location / / Volume Laterality 09/22/2021 09/24/2021 4:03 PM CDT Narrative APS SPECTRA [facility] - 09/24/2021 Unless otherwise specified, test(s) performed at: [facility], [address] [facility] [place] [address] SUPERVISOR CUSTOMER SERVICES: Alhaji Noguera M.D., Ph.D For any questions, please call customer service at FREQUENCY:MONTHLY Resulting Agency Comment Specimen source: Plasma Ernie Pompa MD LAB BLOOD ORDERABLES Performing Organization Address [facility] Phon e Number APS SPECTRA [facility] (ABNORMAL) [...] 09/24/2021 Unless otherwise specified, test(s) performed at: [facility], [address] [facility] [place] [address] SUPERVISOR CUSTOMER SERVICES: Alhaji Noguera M.D., Ph.D For any questions, [...] MD LAB BLOOD ORDERABLES Performing Organization Address City/[facility]/ZIP Code Phon e Number APS SPECTRA [facility] (ABNORMAL) Spectrae Chemistry (09/22/2021) P athologist Signature PTH 722 (H) 16 - 80 A[facility]PECTRA pg/mL [facility] Specimen (Source) Anatomical Collection Method Collection Time Re ceived Time Location / / Volume Laterality 09/22/2021 09/24/2021 2:25 PM CDT Narrative APS SPECTRA [facility] - 09/24/2021 Unless otherwise specified, test(s) performed at: [facility], [address] [facility] [place] [address] SUPERVISOR CUSTOMER SERVICES: Alhaji Noguera M.D., Ph.D For any questions, please call customer service at FREQUENCY:MONTHLY Resulting Agency Comment Specimen source: Plasma Ernie Pompa MD LAB BLOOD ORDERABLES Performing Organization Address City/[facility] Phon e Number APS SPECTRA [facility] documented in this encounter Visit Diagnoses Not on filedocumented in this encounter
--- OUTSIDE RECORDS SUMMARY | 2021-11-11 09:34 | XMS_ITS | Encounter Summary ---
:1945 Author Organization [facility] Address [address] [place] [address] Care Team Providers Name Role Phone Unavailable Primary Care Provider Unavailable Encounter Details Date Type Department Care Team Description 09/15/2021 Treatment [facility] f Ernie Guzmán MD [address] [place] [address] [place], [place] [phone] (Wo rk) Social History Tobacco Use Types Packs/Day Years Used Date Smoking Tobacco: Unknown Comments: Smoking History Info:Patient n ot screened Sex Assigned at Date Recorded Not on file documented as of this encounter Miscellaneous Notes Dialysis Note - Ernie Pompa MD - 09/15/2021 10:30 AM CDT Date: Sep 15, 2021 Patient Name: Shaun Ocampo : 1945 Chart #: [id number] Sex: M This patient was personally seen [...] AM ) BP (sit): 107/33 AP(-) / CRISIS INTERVENTION SPECIALIST: n/a Pulse: 65 Chairside data as of [...] 08/27/2021 05/28/2021 04/23/2021 Access Flow [id number] Treatment Medication Orders Medication Sig Start Date [...] mcg IVP Every 2 weeks 09/15/2021 09/14/2022 NASCAR PIT CREW PERSON: Ernie Pompa MD LOCATION: [phone] SCHEDULE: -- 2nd Shift ACCESS: EDW: kg. [...] and do periodic extra UF treatments at [facility] rather than risk more hypotension post-tx with use of midodrine and additional UF during treatments. He has fistulagram last week, went well and access working well since. 08/11: Continues to have problems with fluid gains. we have spent considerable time discussing this, he is trying to work on this but can't seem to avoid large gains. Will go to [facility] for UF tomorrow, needs extra treatments every 2 weeks it looks like to maintain EDW. He does get SOB when >5K over dry weight in particular. 07/21/21: Continues to struggle with fluid gains, extra UF run scheduled tomorrow at [facility]. He does feel more SOB when fluid overloaded. No new symptoms otherwise, he is enjoying the nicer weather which allows him to do more activity and not sit at home and drink fluids which he thinks will help with IDWG's. 07/14/21: Continues to have high gains, unfortunately [facility] without staff to open tomorrow for extra [...] improving. Fluid gains continue to be high, [facility] not open on this week, says he will do his best withlimiting salt/fluid. HE does feel SOB with exertion with extra fluid on, no orthopnea. 05/26/21: Has SOB when >5 Kg over dry weight, extra run last week at [facility] helped. Trying his best with fluid restriction. [...] extra run and we discussed going to [facility] tomorrow for UF only run and he [...] again today, may need extra run at [facility] if can't get down over next week. 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 06/10: Doing well overall, no new complaints, [...] Went to Urgent care -> ER in [place] yesterday,CT with R hydro but no obstructive [...] (08/18/21) Vascular Access Assessment: Type of access: Bbasqbo12/2019 Surgeon - Lary GARDNER 08/2021: fist[facility]agram at [facility] with angioplasty of stenosis completed Impression and Plan Stable dialysis overall, no changes to prescription made Continue to work on fluid gains, likely will need extra UF run every couple of weeks at [facility] I asked him to schedule follow-up with [...]
--- OUTSIDE RECORDS SUMMARY | 2021-11-11 09:34 | XMS_ITS | Encounter Summary ---
:1945 Author Organization [facility] Address [address] [place] [address] Care Team Providers Name Role Phone Unavailable Primary Care Provider Unavailable Encounter Details Date Type Department Care Team Description 10/13/2021 Orders [facility] O f Ernie Guzmán MD [phone] [place] [address] [place], [place] [phone] (Wo rk) Social History Tobacco Use [...] 10/14/2021 Unless otherwise specified, test(s) performed at: [facility], [address] [place] [address], [place] [address] DYE COLORIST FORMULATOR: Alhaji Noguera M.D., Ph.D For any questions, please call customer service at FREQUENCY:OTHER Resulting Agency Comment Specimen source: Blood Ernie Pompa MD LAB BLOOD ORDERABLES Performing Organization Address City/State/ZIP Code Phon e Number APS SPECTRA [facility] documented in this encounter Visit Diagnoses Not on filedocumented in this encounter
--- OUTSIDE RECORDS SUMMARY | 2021-11-11 09:34 | XMS_ITS | Encounter Summary ---
:1945 Author Organization [facility] Address [address] [place] [address] Care Team Providers Name Role Phone Unavailable Primary Care Provider Unavailable Encounter Details Date Type Department Care Team Description 10/27/2021 Orders Only [facility] O f Ernie Guzmán MD [address] [place] [address] [place], [place] [phone] (Wo rk) Social History Tobacco Use [...] 10/28/2021 Unless otherwise specified, test(s) performed at: [facility], [address] [place] [address], [place] [address] ELECTRICAL HIGH TENSION TESTER: Alhaji Noguera M.D., Ph.D For any questions, [...] 10/28/2021 Unless otherwise specified, test(s) performed at: [facility], [address] [place] [address] asotn HernandezSt[place] [address] ELECTRICAL HIGH TENSION TESTER: Alhaji Noguera M.D., Ph.D For any questions, please call customer service at FREQUENCY:OTHER Resulting Agency Comment Specimen source: Blood Ernie Pompa MD LAB BLOOD ORDERABLES Performing Organization Address City/[facility] Phon e Number APS SPECTRA [facility] documented in this encounter Visit Diagnoses Not on filedocumented in this encounter
--- OUTSIDE RECORDS SUMMARY | 2021-11-11 09:34 | XMS_ITS | Encounter Summary ---
:1945 Author Organization [facility] Address [address] [place] [address] Care Team Providers Name Role Phone Unavailable Primary Care Provider Unavailable Encounter Details Date Type Department Care Team Description 11/03/2021 Orders Only [facility] O f Ernie Guzmán MD [address] [place] [address] [place], [place] [phone] (Wo rk) Social History Tobacco Use Types Packs/Day Years Used Date Smoking Tobacco: Unknown Comments: Smoking History Info:Patient n ot screened Sex Assigned at Date Recorded Not on file documented as of this encounter Plan of Treatment Not on filedocumented as of this encounter Procedures Procedure Name Priority Date/Time Associated Diagnosis Comme nts HEMATOLOGY Routine 11/03/2021 Results for thi s procedure are in the resu lts section. documented in this encounter Results (ABNORMAL) HEMATOLOGY (11/03/2021) Analysis Performed At Patho logist Time Signature Hemoglobin 10.0 (L) 14.0 - APS SPECTRA 18.0 g/dL [facility] Hemoglobin x 3 30.0 (L) 42.0 - APS SPECTRA 54.0 % [facility] Specimen (Source) Anatomical Collection Method Collection Time Re ceived Time Location / / Volume Laterality 11/03/2021 11/04/2021 6:47 AM CDT Narrative APS SPECTRA [facility] - 11/04/2021 Unless otherwise specified, test(s) performed at: [facility], [address] [place] [address], [place] [address] PATIENT ACCOUNTS CLERK: Alhaji Noguera M.D., Ph.D For any questions, please call customer service at FREQUENCY:OTHER Resulting Agency Comment Specimen source: Blood Ernie Pompa MD LAB BLOOD ORDERABLES Performing Organization Address City/State/ZIP Code Phon e Number APS SPECTRA [facility] documented in this encounter Visit Diagnoses Not on filedocumented in this encounter
--- OUTSIDE RECORDS SUMMARY | 2021-11-11 09:34 | XMS_ITS | Encounter Summary ---
:1945 Author Organization [facility] Address [address] [place] [address] Care Team Providers Name Role Phone Unavailable Primary Care Provider Unavailable Encounter Details Date Type Department Care Team Description 09/29/2021 Orders [facility] O f Ernie Guzmán MD [address] [place] [address] [place], [place] [phone] (Wo rk) Social History Tobacco Use [...] 09/30/2021 Unless otherwise specified, test(s) performed at: [facility], [address] [place] [address], [place] [address] MERCHANT MILL UTILITY WORKER: Alhaji Noguera M.D., Ph.D For any questions, [...] 09/30/2021 Unless otherwise specified, test(s) performed at: [facility], [address] [place], [place] [address]francisca [place] [address] MERCHANT MILL UTILITY WORKER: Alhaji Noguera M.D., Ph.D For any questions, please call customer service at FREQUENCY:OTHER Resulting Agency Comment Specimen source: Blood Ernie Pompa MD LAB BLOOD ORDERABLES Performing Organization Address City/[facility] Code Phon e Number APS SPECTRA [facility] documented in this encounter Visit Diagnoses Not on filedocumented in this encounter
--- OUTSIDE RECORDS SUMMARY | 2021-11-11 09:34 | XMS_ITS | Encounter Summary ---
:1945 Author Organization [facility] Address [address] [place] [address] Care Team Providers Name Role Phone Unavailable Primary Care Provider Unavailable Encounter Details Date Type Department Care Team Description 11/10/2021 Treatment [facility] Ernie Guzmán MD [address] [place] [address] [place], [place] [phone] (Wo rk) Social History Tobacco Use Types Packs/Day Years Used Date Smoking Tobacco: Unknown Comments: Smoking History Info:Patient n ot screened Sex Assigned at Date Recorded Not on file documented as of this encounter Miscellaneous Notes Dialysis Note - Ernie Pompa MD - 11/10/2021 11:27 AM CDT Date: Nov 10, 2021 Patient Name: Shaun Ocampo : 1945 Chart #: [id number] Sex: M This patient was personally seen for a basic visit as part of routine weekly dialysis care. A reviewof the dialysis treatment, blood pressure, estimated dry weight and recent lab values was made. These were discussed with the patient and staff as necessary. Treatment Data for 11/10/2021 started at:6:46 AM Dialyzer: 180NRe Optiflux Na: 138 mEq/L Bicarb: 34 mEq/L Dialysate: 2.0 K, 2.5 Ca, 1.0 Mg, 100 Dextrose (G2251) Dialysate/Machine Temp (prescribed): 37 C Dialysate/Machine Temp (actual): 36.3 C BFR (prescribed): 400 BFR (actual): 400 Prescribed time: 04:00 EDW: 108.5 kg Access Type: Active (In Use):AVFistula-Standard/Left Upper Arm Pre Dialysis Vitals (for 11/10/2021 6:39 AM ) Pre BP (sit): 112/49 Pre Wt: 112 kg Temp: 97.7 F Post Dialysis Vitals (for 11/08/2021 10:51 AM ) Post BP (sit): 97/40 Post Wt: 109.2 kg Current Dialysis Vitals (for 11/10/2021 10:32 AM ) BP (sit): 111/39 AP(-) / DICE DEALER: 195/161 Pulse: 62 Chairside data as of 11/10/2021 10:32 AM Last 3 Treatments 11/08/2021 11/05/2021 11/03/2021 EDW (kg) 108.5 108.5 108.5 Weight Pre (kg) 113.3 111.7 111.9 Weight Post (kg) 109.2 109.5 108.3 Dialytic Weight Loss (kg) -4.1 -2.2 -3.6 EDW Deviation (kg) 0.7 1.0 -0.2 BP Sit Pre 116/55 96/46 91/36 BP Sit Post 97/40 105/46 109/41 UF Rate (mL/kg/hr) 10 5 8 Prescribed BFR 400 400 400 Average Delivered BFR 400 410 410 Prescribed Treatment Time 04:00 04:00 04:00 Actual Treatment Time 03:58 04:00 04:00 Last 3 Values 08/27/2021 05/28/2021 04/23/2021 Access Flow [id number] Treatment Medication Orders Medication Sig Start Date End Date Doxercalciferol (Hectorol) 5 mcg IVP Every Treatment 09/17/2021 09/16/2022 Etelcalcetide (Parsabiv) 7.5 mg IVP 3X Week Post Dialysis 11/01/2021 10/31/2022 Heparin Sodium (Porcine) 1,000 Units/mL Systemic 2000 units IVP Every Treatment 03/29/2021 03/28/2022 Heparin Sodium (Porcine) 1,000 Units/mL Systemic 1000 units IVP Every Treatment 03/29/2021 03/28/2022 Iron Sucrose (Venofer) 50 mg IVP 1X Week 10/25/2021 10/24/2022 Mircera 200 mcg IVP Every 2 weeks 10/27/2021 10/26/2022 HUMAN PERFORMANCE TECHNOLOGIST: Ernie Pompa MD LOCATION: [phone] SCHEDULE: -- 2nd Shift ACCESS: EDW: kg. DIALYZER: HD DURATION: NEEDLE SIZE: ANTICOAG: BATH: QB: ml/min QD: ml/min Subjective Tolerating dialysis well. 11/10: He's had more hypotension with dialysis, better this week and particularily today with IDWG <4L and getting to EDW today with no intra- dialytic weight gain. Has had some nausea recently, better last couple days. Otherwise feels well and no GI bleeding and having regular BM's now and Hgb up to10. 10/27/21: He is doing much better after extra UF run last week at [facility]. BP adequate, challengingEDW today. His breathing is improved. Also went to wound care clinic at [facility] and they dressedwounds and he has follow-up and instructions for dressings and cares. He has no new symptoms and otherwise feels well. 10/13: Had GI bleeding on Monday, went to ER after dialysis, admitted at [facility], had 3u blood, EGDwithout obvious source, [...] and do periodic extra UF treatments at [facility] rather than risk more hypotension post-tx with use of midodrine and additional UF during treatments. He has fistulagram last week, went well and access working well since. 08/11: Continues to have problems with fluid gains. we have spent considerable time discussing this, he is trying to work on this but can't seem to avoid large gains. Will go to [facility] for UF tomorrow, needs extra treatments every 2 weeks it looks like to maintain EDW. He does get SOB when >5K over dry weight in particular. 07/21/21: Continues to struggle with fluid gains, extra UF run scheduled tomorrow at [facility]. He does feel more SOB when fluid overloaded. No new symptoms otherwise, he is enjoying the nicer weather which allows him to do more activity and not sit at home and drink fluids which he thinks will help with IDWG's. 07/14/21: Continues to have high gains, unfortunately [facility] without staff to open tomorrow for extra [...] improving. Fluid gains continue to be high, [facility] not open on this week, says he will do his best withlimiting salt/fluid. HE does feel SOB with exertion with extra fluid on, no orthopnea. 05/26/21: Has SOB when >5 Kg over dry weight, extra run last week at [facility] helped. Trying his best with fluid restriction. [...] well. He had extra run prior to [facility] and ran WThF that week [...] extra run and we discussed going to [facility] tomorrow for UF only run and he [...] again today, may need extra run at [facility] if can't get down over next week. 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 06/10: Doing well overall, no new complaints, [...] Went to Urgent care -> ER in [place] yesterday,CT with R hydro but no obstructive [...] had infiltration last week, dialyzed at [facility] on Sat and went well, access [...] Regular rhythm. Edema - 1+ leg edema. wrapped now Access - AVF intact with needles in place, good t/b and no aneurysms LE wound wrapped but following at wound clinic and he says almost healed completely now Medication List Medication Sig Start Date albuterol [...] and no changes were made. BUN mg/dL 38 (10/20/21) 41 (09/22/21) 55 [...] (09/22/21) 1.4900 (08/30/21) 1.3400 (08/18/21) 1.3700 (07/21/21) HEMOGLOBIN (G/DL) IN BLOOD g/dL 10.0 (11/03/21) 9.3 (10/27/21) 9.9 (10/20/21) 9.8 (10/13/21) 9.3 (10/06/21) PLATELETS 1000/mcL 184 (10/20/21) 250 (09/22/21) 101 (08/18/21) 183 (07/21/21) 149 (05/19/21) IRON SATURATION % 32 (08/18/21) 36 (07/21/21) 31 (06/23/21) 38 (05/26/21) 35 (05/19/21) FERRITIN ng/mL 357 (09/22/21) 640 (06/23/21) 640 (05/21/21) 857 (03/24/21) 837 (02/24/21) ALBUMIN (G/DL) g/dL 3.8 (10/20/21) 3.7 (09/22/21) 3.6 (08/18/21) Sodium mEq/L 135 (10/20/21) 133 (09/22/21) 135 (08/18/21) POTASSIUM (MMOL/L) IN SER/PLAS mEq/L 5.0 (10/20/21) 5.7 (09/29/21) 6.3 (09/22/21) BICARBONATE (CO2) mEq/L 26 (10/20/21) 26 (09/22/21) 23 (08/18/21) 25 OH VITAMIN D ng/mL 56.0 (09/22/21) 38.3 (03/24/21) 37.9 (09/23/20) BUN/CREATININE (MASS RATIO) IN SER/PLAS 7.3 (10/20/21) 7.7 (09/22/21) 9.0 (08/18/21) CALCIUM mg/dL 9.5 (10/20/21) 9.2 (09/22/21) 8.9 (09/13/21) Calcium Phos Product 28 (10/20/21) 36 (09/22/21) 38 (08/18/21) CALCIUM (MG/DL) CORRECTED FOR ALBUMIN IN SER/PLAS mg/dL 9.7 (10/20/21) 9.4 (09/22/21) 9.0 (08/18/21) PHOSPHATE (MG/DL) IN SER/PLAS mg/dL 2.9 (10/20/21) 3.9 (09/22/21) 4.4 (08/18/21) IPTH pg/mL 203 (10/27/21) 722 (09/22/21) 851 (09/13/21) Vascular Access Assessment: Type of access: [id number] Surgeon - Lary KUMARW 08/2021: fistulagram at [facility] with angioplasty of stenosis completed Impression and Plan Stable dialysis Hgb improved BP better this week Will monitor to see if nausea resolves now May need midodrine in future if ongoing intra-dialytic hypotension but since Hgb back up to 10 it seems this is helping Ernie Pompa MD [ Signed And locked electronically On 11/10/2021 at 11:29:34 AM ] Transcribed: Ernie Pompa ( 11/10/2021 ) documented in this encounter Plan of Treatment Not on filedocumented as of this encounter Visit Diagnoses Not on filedocumented in this encounter
--- OUTSIDE RECORDS SUMMARY | 2021-11-11 09:34 | XMS_ITS | Encounter Summary ---
:1945 Author Organization [facility] Address [address] [place] [address] Care Team Providers Name Role Phone Unavailable Primary Care Provider Unavailable Encounter Details Date Type Department Care Team Description 09/01/2021 Orders Only [facility] f Ernie Guzmán MD [phone] [place] [address] [place], [place] [phone] (Wo rk) Social History Tobacco Use [...] 09/03/2021 Unless otherwise specified, test(s) performed at: [facility], [address] [place] [address] INTEGRATED CAMPAIGN MANAGER: Alec Payan M.D. For any questions, please call customer service at FREQUENCY:OTHER Resulting Agency Comment Specimen source: Serum Ernie Pompa MD LAB BLOOD ORDERABLES Performing Organization Address City/[facility] Phon e Number APS SPECTRA [...] 09/02/2021 Unless otherwise specified, test(s) performed at: [facility], [address] [place] [address] INTEGRATED CAMPAIGN MANAGER: Alec Payan M.D. For any questions, please call customer service at FREQUENCY:OTHER Resulting Agency Comment Specimen source: Blood Ernie Pompa MD LAB BLOOD ORDERABLES Performing Organization Address City/[facility] Phon e Number APS SPECTRA [facility] documented in this encounter Visit Diagnoses Not on filedocumented in this encounter
--- OUTSIDE RECORDS SUMMARY | 2021-11-11 09:34 | XMS_ITS | Encounter Summary ---
:1945 Author Organization [facility] Address [address] [place] [address] Care Team Providers Name Role Phone Unavailable Primary Care Provider Unavailable Encounter Details Date Type Department Care Team Description 08/20/2021 Orders Only [facility] O f Ernie Guzmán MD [phone] [place] [address] [place], [place] [phone] (Wo rk) Social History Tobacco Use [...] 08/21/2021 Unless otherwise specified, test(s) performed at: [facility], [address] [place] [address] LUMBER RACKER: Alec Payan M.D. For any questions, please call customer service at FREQUENCY:OTHER Resulting Agency Comment Specimen source: Plasma Ernie Pompa MD LAB BLOOD ORDERABLES Performing Organization Address City/State/ZIP Code Phon e Number APS SPECTRA [facility] documented in this encounter Visit Diagnoses Not on filedocumented in this encounter
--- OUTSIDE RECORDS SUMMARY | 2021-11-11 09:34 | XMS_ITS | Encounter Summary ---
:1945 Author Organization [facility] Address [address] [place] [address] Care Team Providers Name Role Phone Unavailable Primary Care Provider Unavailable Encounter Details Date Type Department Care Team Description 09/15/2021 Orders Only [facility] O f Ernie Guzmán MD [phone] [place] [address] [place], [place] [phone] (Wo rk) Social History Tobacco Use [...] 09/16/2021 Unless otherwise specified, test(s) performed at: [facility], [address] [place] [address] CONSULTING PROJECT DIRECTOR: Alec Payan M.D. For any questions, please call customer service at FREQUENCY:OTHER Resulting Agency Comment Specimen source: Blood Ernie Pompa MD LAB BLOOD ORDERABLES Performing Organization Address City/State/ZIP Code Phon e Number APS SPECTRA [facility] documented in this encounter Visit Diagnoses Not on filedocumented in this encounter
--- OUTSIDE RECORDS SUMMARY | 2021-11-11 09:34 | XMS_ITS ---
:1945 Author Organization [facility], NA DOCUMENT DISCLAIMER The information in the [facility] Continuity of Care Document represents a [...] Sign Value Date / Time Blood Pressure-sitting 100/40 mmHg November 10, 2021 0 6:46 AM Blood Pressure-standing 130/42 mmHg November 10, 2021 06:46 AM Heart Rate 63 beats per minute November 10, 2021 06:4 6 AM Respiratory Rate 16 breaths per minute November 10, 2021 06 :46 AM Temperature 97.8 deg. F November 10, 2021 06:4 6 AM Weight Vital Sign Value Date / Time Estimated Dry Weight 108.5 kg October 27, 2021 11: 59 PM Pre-Dialysis 112.00 kg November 10, 2021 06:4 6 AM Post-Dialysis 108.50 kg November 10, 2021 06:4 6 AM Other Other Value Date / Time Height 173 cm August 25, 2021 12:00 AM [facility] LAB RESULTS Hematology Result Type Result Value Relevant Reference Interpretation Date Range HGB 9.8 g/dL Males: 14.0 - 18.0 [...] mcg/dL - October 20 Platelets 184 1000/mcL 273-605 5758/mcL - October 20, 2021 Iron 46 mcg/dL [...] October g/dL Females: 12.0 - 16.0 g/dL HGB 10.0 g/dL Males: 14.0 - 18.0 Low October g/dL Females: 12.0 - 16.0 g/dL Hemoglobin x 3 30.0 % Male: 14.0 - 18.0 Low October 182021 g/dL; Female: 12.0-16.0 g/dL Metabolic/Renal Result Type Result Value Relevant [...] 1.29 No Reference range Normal Oct ust 03, 2022 provided Bone/Mineral Result Type Result Value Relevant [...] (mEq/L) 34 meq/L Dialysis Access Hemodialysis-AV Fistula-Rangel frazier, Left Upper Arm, Other/Unknown Arterial Needle Size [...] Co mpleted Vaccine, Dose 1 of 2 ZKIGYVC-Y-SJEWO, series October 30, 2019 40.0 mcg Intramuscul ar Completed 4 of 4 MWZVUQL-R-QRIIC, series July 03, 2019 40.0 mcg Intramuscula r Completed 3 of 4 OZIFCYA-V-HIUUS, series June 03, 2019 40.0 mcg Intramuscula r Completed 2 of 4 HZYAPAS-L-JHZXN, series May 03, 2019 40.0 mcg Intramusc ular Completed 1 of 4 TRANSPLANT WAITLIST STATUS No Information on Transplant Waitlist Status ADVANCE DIRECTIVES Directive Description Ordered By Effective Date Resuscitation status Full Code Ernie Pompa Mar 26 2 DIALYSIS TREATMENTS Conventional Hemodialysis Date Pre-Treatment Post-Treatment Duration BFR Dialysate Dialyzer Dialysis Meds Vitals Vitals (hr) (mL/min) Access Admin October Weight 111.70 Weight 109.50 04:00:00 410 2.0 K, 180nre Hemodial ysis-AV Fistula-Standard, Left Upper Arm, Other/Unknown Doxercalciferol (Hectorol); 5mcg,Intravenous - push 19, kg kg 2.5 Ca, Optiflux Etelcalce tide (Parsabiv); 7.5mg,Intravenous - push 2021 1.0 Mg, Heparin Sodi um (Porcine) 1,000 Units/mL Systemic; 1000units,Intravenous - push 100 Heparin Sodium (Porcine) 1,000 Units/mL Systemic; 2000units,Intravenous - push Dextrose (G2251) Blood Pressure-sitting 96/46 mmHg Blood Pressure-sitting 10 5/46 mmHg Blood Pressure-standing 94/47 mmHg Blood Pressure-standing 101/41 mmHg Heart Rate 75 beats per Heart Rate 68 beats per minute minute Respiratory Rate 16 breaths per Respiratory Rate 16 breaths per minute minute Temperature 96.3 deg. F Temperature 98.0 deg. F October Weight 113.30 Weight 109.20 03:58:00 400 2.0 K, 180nre Hemodial ysis-AV Fistula-Standard, Left Upper Arm, Other/Unknown Doxercalciferol (Hectorol); 5mcg,Intravenous - push 22, kg kg 2.5 Ca, Optiflux Heparin S odium (Porcine) 1,000 Units/mL Systemic; 1000units,Intravenous - push 2022 1.0 Mg, Heparin Sodi um (Porcine) 1,000 Units/mL Systemic; 2000units,Intravenous - push 100 Iron Sucrose ( Venofer); 50mg,Intravenous - push Dextrose (G2251) Blood Pressure-sitting 116/55 mmHg Blood Pressure-sitting 97 /40 mmHg Blood Pressure-standing 113/38 mmHg Blood Pressure-standing 102/46 mmHg Heart Rate 101 beats per Heart Rate 64 beats per minute minute Respiratory Rate 20 breaths per Respiratory Rate 18 breaths per minute minute Temperature 96.5 deg. F Temperature 97.8 deg. F October Weight 112.00 Weight 108.50 04:00:00 400 2.0 K, 180nre Hemodial ysis-AV Fistula-Standard, Left Upper Arm, Other/Unknown Doxercalciferol (Hectorol); 5mcg,Intravenous - push 24, kg kg 2.5 Ca, Optiflux Etelcalce tide (Parsabiv); 7.5mg,Intravenous - push 2022 1.0 Mg, Heparin Sodi um (Porcine) 1,000 Units/mL Systemic; 1000units,Intravenous - push 100 Heparin Sodium (Porcine) 1,000 Units/mL Systemic; 2000units,Intravenous - push Dextrose Mircera; 20 0mcg,Intravenous - push (G2251) Blood Pressure-sitting 112/49 mmHg Blood Pressure-sitting 10 0/40 mmHg Blood Pressure-standing 101/36 mmHg Blood Pressure-standing 130/42 mmHg Heart Rate 79 beats per Heart Rate 63 beats per minute minute Respiratory Rate 16 breaths per Respiratory Rate 16 breaths per minute minute Temperature 97.7 deg. F Temperature 97.8 deg. F
--- OUTSIDE RECORDS SUMMARY | 2021-11-11 09:34 | XMS_ITS | Encounter Summary ---
:1945 Author Organization [facility] Address [address] [place] [address] Care Team Providers Name Role Phone Unavailable Primary Care Provider Unavailable Encounter Details Date Type Department Care Team Description 09/29/2021 Treatment [facility] f Ernie Guzmán MD [address] [place] [address] [place], [place] [phone] (Wo rk) Social History Tobacco Use Types Packs/Day Years Used Date Smoking Tobacco: Unknown Comments: Smoking History Info:Patient n ot screened Sex Assigned at Date Recorded Not on file documented as of this encounter Miscellaneous Notes Dialysis Note - Ernie Pompa MD - 09/29/2021 10:30 AM CDT Date: Sep 29, 2021 Patient Name: Shaun Ocampo : 1945 Chart #: [id number] Sex: M This patient was personally seen [...] AM ) BP (sit): 109/45 AP(-) / DENTAL HYGIENE INSTRUCTOR: 168/138 Pulse: 57 Chairside data as of [...] 08/27/2021 05/28/2021 04/23/2021 Access Flow 794 [id number] 1244 Treatment Medication Orders Medication Sig Start Date [...] mcg IVP Every 2 weeks 09/29/2021 09/28/2022 DIMENSION STONE QUARRY SUPERVISOR: Ernie Pompa MD LOCATION: [phone] SCHEDULE: -- 2nd Shift EDW: kg. DIALYZER: [...] and do periodic extra UF treatments at [place] rather than risk more hypotension post-tx with use of midodrine and additional UF during treatments. He has fistulagram last week, went well and access working well since. 08/11: Continues to have problems with fluid gains. we have spent considerable time discussing this, he is trying to work on this but can't seem to avoid large gains. Will go to [place] for UF tomorrow, needs extra treatments every 2 weeks it looks like to maintain EDW. He does get SOB when >5K over dry weight in particular. 07/21/21: Continues to struggle with fluid gains, extra UF run scheduled tomorrow at [place]. He does feel more SOB when fluid overloaded. No new symptoms otherwise, he is enjoying the nicer weather which allows him to do more activity and not sit at home and drink fluids which he thinks will help with IDWG's. 07/14/21: Continues to have high gains, unfortunately [facility] without staff to open tomorrow for extra [...] improving. Fluid gains continue to be high, [place] not open on this week, says he will do his best withlimiting salt/fluid. HE does feel SOB with exertion with extra fluid on, no orthopnea. 05/26/21: Has SOB when >5 Kg over dry weight, extra run last week at [place] helped. Trying his best with fluid restriction. [...] extra run and we discussed going to [place] tomorrow for UF only run and he [...] again today, may need extra run at [place] if can't get down over next week. 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 06/10: Doing well overall, no new complaints, [...] Went to Urgent care -> ER in [place] yesterday,CT with R hydro but no obstructive [...] He had infiltration last week, dialyzed at [facility] on Sat and went well, access [...] prescription. Vascular Access Assessment Type of access: [id number] Surgeon - Lary GARDNER 08/2021: fistulagram at [facility] with angioplasty of [...] at goal. Intact PTH is above goal. Digital Art Director will adjust binders and vitamin D per [...] remain high Extra UF run tomorrow at [place] Transplant Status: Patient is not a candidate. Weight, co-morbidities, age Resuscitation Status Stable dialysis, no changes to prescription Extra UF run at [place] tomorrow Ongoing attempts at lower IDWG's Discussed [...]
--- OUTSIDE RECORDS SUMMARY | 2021-11-11 09:34 | XMS_ITS | Encounter Summary ---
:1945 Author Organization [facility] Address [address] [place] [address] Care Team Providers Name Role Phone Unavailable Primary Care Provider Unavailable Encounter Details Date Type Department Care Team Description 09/13/2021 Orders Only [facility] O f Ernie Guzmán MD [phone] [place] [address] [place], [place] [phone] (Wo rk) Social History Tobacco Use [...] 09/14/2021 Unless otherwise specified, test(s) performed at: [facility], [address] [place] [address] FLOOR SCRUBBER: Alec Payan M.D. For any questions, please [...] 09/14/2021 Unless otherwise specified, test(s) performed at: [facility], [address] [place] [address] FLOOR SCRUBBER: Alec Payan M.D. For any questions, please call customer service at FREQUENCY:OTHER Resulting Agency Comment Specimen source: Plasma Ernie Pompa MD LAB BLOOD ORDERABLES Performing Organization Address City/[facility]/ZIP Code Phon e Number APS SPECTRA [facility] documented in this encounter Visit Diagnoses Not on filedocumented in this encounter
--- OUTSIDE RECORDS SUMMARY | 2021-11-11 09:35 | XMS_ITS | Encounter Summary ---
:1945 Author Organization [facility] Address [address] [place] [address] Care Team Providers Name Role Phone Unavailable Primary Care Provider Unavailable Encounter Details Date Type Department Care Team Description 05/26/2021 Orders Only [facility] O f Ernie Guzmán MD [address] [place] [address] [place], [place] [phone] (Wo rk) Social History Tobacco Use [...] / Volume Laterality 05/26/2021 05/27/2021 6:19 PM SASH ASSEMBLER Narrative APS SPECTRA [facility] - 05/28/2021 Unless otherwise specified, test(s) performed at: [facility], [address] [place], [place] [id number] BRAND DEVELOPMENT MANAGER: Alec Payan M.D. For any questions, please call customer service at FREQUENCY:OTHER Resulting Agency Comment Specimen source: Serum Ernie Pompa MD LAB BLOOD ORDERABLES Performing Organization Address City/[facility]/ZIP Code Phon e Number APS SPECTRA [facility] (ABNORMAL) Spectrae Chemistry (05/26/2021) P athologist Signature PTH 1,356 (H) 16 - 80 APS SPECTRA pg/mL [facility] Specimen (Source) Anatomical Collection Method Collection Time Re ceived Time Location / / Volume Laterality 05/26/2021 05/27/2021 10:2 3 AM SASH ASSEMBLER Narrative APS SPECTRA [facility] - 05/27/2021 Unless otherwise specified, test(s) performed at: [facility], [address] [place], [place] [id number] BRAND DEVELOPMENT MANAGER: Alec Payan M.D. For any questions, please call customer service at FREQUENCY:OTHER Resulting Agency Comment Specimen source: Plasma Ernie Pompa MD LAB BLOOD ORDERABLES Performing Organization Address City/[facility] Code Phon e Number APS SPECTRA [...] Volume Laterality 05/26/2021 05/27/2021 10:1 9 AM SASH ASSEMBLER Narrative APS SPECTRA [facility] - 05/27/2021 Unless otherwise specified, test(s) performed at: [facility], [address] [place], [place] [id number] BRAND DEVELOPMENT MANAGER: Alec Payan M.D. For any questions, please call customer service at FREQUENCY:OTHER Resulting Agency Comment Specimen source: Blood Ernie Pompa MD LAB BLOOD ORDERABLES Performing Organization Address City/State/ZIP Code Phon e Number APS SPECTRA [facility] documented in this encounter Visit Diagnoses Not on filedocumented in this encounter
--- OUTSIDE RECORDS SUMMARY | 2021-11-11 09:35 | XMS_ITS | Encounter Summary ---
:1945 Author Organization [facility] Address [address] [place] [address] Care Team Providers Name Role Phone Unavailable Primary Care Provider Unavailable Encounter Details Date Type Department Care Team Description 07/21/2021 Treatment [facility] f Ernie Guzmán MD [address] [place] [address] [place], [place] [phone] (Wo rk) Social History Tobacco Use Types Packs/Day Years Used Date Smoking Tobacco: Unknown Comments: Smoking History Info:Patient n ot screened Sex Assigned at Date Recorded Not on file documented as of this encounter Miscellaneous Notes Dialysis Note - Ernie Pompa MD - 07/21/2021 9:02 AM CDT Date: July 21, 2021 Patient Name: Shaun Ocampo : 1945 Chart #: [id number] Sex: M This patient was personally seen [...] AM ) BP (sit): 112/56 AP(-) / MUTTON PUNCHER: 158/144 Pulse: 77 Chairside data as of [...] mcg IVP Every 2 weeks 07/21/2021 07/20/2022 BREAKFAST SERVER: Ernie Pompa MD LOCATION: [place] [phone] SCHEDULE: -W- 2nd Shift EDW: kg. DIALYZER: HD DURATION: NEEDLE SIZE: ANTICOAG: BATH: QB: ml/min QD: ml/min Subjective Tolerating dialysis well. 07/21/21: Continues to struggle with fluid gains, extra UF run scheduled tomorrow at [facility]. He does feel more SOB when fluid overloaded. No new symptoms otherwise, he is enjoying the nicer weather which allows him to do more activity and not sit at home and drink fluids which he thinks will help with IDWG's. 07/14/21: Continues to have high gains, unfortunately [facility] without staff to open tomorrow for extra [...] had steroid injections in knees yesterday at [facility]. To do PT as well. He pulled muscle in his lower arm on L side last week getting into car, hurt a lot but is improving. Fluid gains continue to be high, [facility] not open on this week, says he will do his best withlimiting salt/fluid. HE does feel SOB with exertion with extra fluid on, no orthopnea. 05/26/21: Has SOB when >5 Kg over dry weight, extra run last week at [facility] helped. Trying his best with fluid restriction. [...] extra run and we discussed going to [facility] tomorrow for UF only run and he [...] again today, may need extra run at [facility] if can't get down over next week. 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 06/10: Doing well overall, no new complaints, [...] Went to Urgent care -> ER in [place] yesterday,CT with R hydro but no obstructive [...] had infiltration last week, dialyzed at [facility] on Sat and went well, [...] prescription. Vascular Access Assessment Type of access: [id number]/[email or web address] Surgeon - Lary GARDNER Access working well [...] at goal. Intact PTH is above goal. Internet Developer will adjust binders and vitamin D per [...] euvolemia, extra UF run planned 07/22/21 at [facility] Transplant Status: Patient is not a candidate. Weight, co-morbidities, age Resuscitation Status Stable dialysis, no changes to prescription Extra UF run tomorrow at [facility] Continue work on lower IDWG's Monthly labs being drawn today Ernie Pompa MD [ Signed And locked electronically On 07/21/2021 at 09:05:19 AM ] Transcribed: Ernie Pompa ( 07/21/2021 ) documented in this encounter Plan of Treatment Not on filedocumented as of this encounter Visit Diagnoses Not on filedocumented in this encounter
--- OUTSIDE RECORDS SUMMARY | 2021-11-11 09:35 | XMS_ITS | Encounter Summary ---
:1945 Author Organization [facility] Address [address] [place] [address] Care Team Providers Name Role Phone Unavailable Primary Care Provider Unavailable Encounter Details Date Type Department Care Team Description 06/30/2021 Orders Only [facility] O f Ernie Guzmán MD [address] [place] [address] [place], [place] [phone] (Wo rk) Social History Tobacco Use [...] 07/01/2021 Unless otherwise specified, test(s) performed at: [facility], [address] [place] [address] SECTION CUTTER: Alec Payan M.D. For any questions, please call customer service at FREQUENCY:OTHER Resulting Agency Comment Specimen source: Blood Ernie Pompa MD LAB BLOOD ORDERABLES Performing Organization Address City/State/ZIP Code Phon e Number [facility] documented in this encounter Visit Diagnoses Not on filedocumented in this encounter
--- OUTSIDE RECORDS SUMMARY | 2021-11-11 09:35 | XMS_ITS | Encounter Summary ---
:1945 Author Organization [facility] Address [address] [place] [address] Care Team Providers Name Role Phone Unavailable Primary Care Provider Unavailable Encounter Details Date Type Department Care Team Description 04/14/2021 Orders Only [facility] O f Ernie Guzmán MD [phone] [place] [address] [place], [place] [phone] (Wo rk) Social History Tobacco Use [...] Volume Laterality 04/14/2021 04/15/2021 10:0 0 AM SOCIAL WORKER AIDE Narrative [facility] - 04/15/2021 Unless otherwise specified, test(s) performed at: [facility], [address] [place] [address] DAIRY POWDER MIXER OPERATOR: Alec Payan M.D. For any questions, please call customer service at FREQUENCY:OTHER Resulting Agency Comment Specimen source: Blood Ernie Pompa MD LAB BLOOD ORDERABLES Performing Organization Address City/State/ZIP Code Phon e Number [facility] documented in this encounter Visit Diagnoses Not on filedocumented in this encounter
--- OUTSIDE RECORDS SUMMARY | 2021-11-11 09:35 | XMS_ITS | Encounter Summary ---
:1945 Author Organization [facility] Address [address] [place] [address] Care Team Providers Name Role Phone Unavailable Primary Care Provider Unavailable Encounter Details Date Type Department Care Team Description 05/05/2021 Orders Only [facility] O f Ernie Guzmán MD [phone] [place] [address] [place], [place] [phone] (Wo rk) Social History Tobacco Use [...] / Volume Laterality 05/05/2021 05/06/2021 8:46 PM WIRELESS WATCHER Narrative [facility] - 05/07/2021 Unless otherwise specified, test(s) performed at: [facility], [address] [place] [address] PLASMA TABLE OPERATOR: Alec Payan M.D. For any questions, please call customer service at FREQUENCY:OTHER Resulting Agency Comment Specimen source: Serum Ernie Pompa MD LAB BLOOD ORDERABLES Performing Organization Address City/[facility]/ZIP Code Phon e Number [facility] (ABNORMAL) HEMATOLOGY (05/05/2021) Analysis Performed At Patho logist Time Signature Hemoglobin 10.3 (L) 14.0 - [facility] 18.0 g/dL [facility] Hemoglobin x 3 30.9 (L) 42.0 - [facility] 54.0 % [facility] Specimen (Source) Anatomical Collection Method Collection Time Re ceived Time Location / / Volume Laterality 05/05/2021 05/06/2021 5:29 PM WIRELESS WATCHER Narrative [facility] - 05/06/2021 Unless otherwise specified, test(s) performed at: [facility], [address] [place], [place] [id number] PLASMA TABLE OPERATOR: Alec Payan M.D. For any questions, please call customer service at FREQUENCY:OTHER Resulting Agency Comment Specimen source: Blood Ernie Pompa MD LAB BLOOD ORDERABLES Performing Organization Address [facility] Phon e Number [facility] (ABNORMAL) Spectrae Chemistry (05/05/2021) P athologist Signature PTH 1,457 (H) 16 - 80 [facility] pg/mL [facility] Specimen (Source) Anatomical Collection Method Collection Time Re ceived Time Location / / Volume Laterality 05/05/2021 05/06/2021 5:24 PM WIRELESS WATCHER Narrative [facility] - 05/06/2021 Unless otherwise specified, test(s) performed at: [facility], [address] [place] [address] PLASMA TABLE OPERATOR: Alec Payan M.D. For any questions, please call customer service at FREQUENCY:OTHER Resulting Agency Comment Specimen source: Plasma Ernie Pompa MD LAB BLOOD ORDERABLES Performing Organization Address City/[facility] Phon e Number [facility] documented in this encounter Visit Diagnoses Not on filedocumented in this encounter
--- OUTSIDE RECORDS SUMMARY | 2021-11-11 09:35 | XMS_ITS | Encounter Summary ---
:1945 Author Organization [facility] Address [address] [place] [address] Care Team Providers Name Role Phone Unavailable Primary Care Provider Unavailable Encounter Details Date Type Department Care Team Description 03/24/2021 Orders Only [facility] O f Ernie Guzmán MD [address] [place] [address] [place], [place] [phone] (Wo rk) Social History Tobacco Use [...] and its performa nce characteristics determined by [facility]. It has not been cleared or approved by the FDA. The laboratory is regulated under CLIA a s qualified to perform high complexity testing. This test is used fo r clinical purposes. It should not be regarded as investigational or fo r research. Specimen (Source) Anatomical Collection Method Collection Time Re ceived Time Location / / Volume Laterality 03/24/2021 03/26/2021 11:3 3 AM SALES PERSON Narrative [facility] - 03/29/2021 Unless otherwise specified, test(s) performed at: [facility], [address] [place] [address] EDUCATION TECHNICIAN: Alec Payan M.D. For any questions, [...] above test result was obtained using Siemens Pico-Tesla Magnetic Therapiesaur XP chemiluminescent method. Results obtaine d with different assay methods or kits cannot be used interchangeably. Specimen (Source) Anatomical Collection Method Collection Time Re ceived Time Location / / Volume Laterality 03/24/2021 03/26/2021 12:2 9 PM SALES PERSON Resulting Agency Comment Specimen source: Serum Ernie Pompa MD LAB BLOOD ORDERABLES Performing Organization Address [facility] Code Phon e Number [facility] [...] Provider LAB BLOOD ORDERABLES Performing Organization Address [facility] Phon e Number [facility] SPECIAL CHEMISTRY (03/24/2021) P athologist Signature Vitamin D, 38.3 30.0 - [facility] 25-OH, Total 100.0 [facility] ng/mL Comment: Vitamin D Status Classification: Deficiency ? <10.0 ng/mL Insufficiency ?10.0-30.0 ng/mL Sufficiency ?30.0-100.0 ng/mL Toxicity ? >100.0 ng/mL Specimen (Source) Anatomical Collection Method Collection Time Re ceived Time Location / / Volume Laterality 03/24/2021 03/26/2021 12:2 9 PM SALES PERSON Narrative [facility] - 03/27/2021 Unless otherwise specified, test(s) performed at: [facility], [address] [place] [address] EDUCATION TECHNICIAN: Alec Payan M.D. For any questions, please call customer service at FREQUENCY:MONTHLY Resulting Agency Comment Specimen source: Serum Ernie Pompa MD LAB BLOOD BANK TEST ORDERABL ES Performing Organization Address City/[facility] Phon e Number [facility] (ABNORMAL) Spectrae Chemistry (03/24/2021) P athologist Signature PTH 977 (H) 16 - 80 [facility] pg/mL [facility] Specimen (Source) Anatomical Collection Method Collection Time Re ceived Time Location / / Volume Laterality 03/24/2021 03/26/2021 11:4 0 AM SALES PERSON Narrative [facility] - 03/26/2021 Unless otherwise specified, test(s) performed at: [facility], [address] [place] [address] EDUCATION TECHNICIAN: Alec Payan M.D. For any questions, please call customer service at FREQUENCY:MONTHLY Resulting Agency Comment Specimen source: Plasma Ernie Pompa MD LAB BLOOD ORDERABLES Performing Organization Address [facility] Phon e Number [facility] HD KINETICS (03/24/2021) P athologist Signature % Urea 75 65 - 80 % [facility] Reduction [facility] Specimen (Source) Anatomical Collection Method Collection Time Re ceived Time Location / / Volume Laterality 03/24/2021 03/26/2021 2:17 PM SALES PERSON Resulting Agency Comment Specimen source: Plasma Ernie Pompa MD LAB BLOOD ORDERABLES Performing Organization Address [facility] Code Phon e Number [facility] POST CHEMISTRY (03/24/2021) P athologist Signature BUN Post 16 6 - 19 [facility] Dialysis mg/dL [facility] Specimen (Source) Anatomical Collection Method Collection Time Re ceived Time Location / / Volume Laterality 03/24/2021 03/26/2021 2:15 PM SALES PERSON Narrative [facility] - 03/26/2021 Unless otherwise specified, test(s) performed at: [facility], [address] [place] [address] EDUCATION TECHNICIAN: Alec Payan M.D. For any questions, please call customer service at FREQUENCY:MONTHLY Resulting Agency Comment Specimen source: Plasma Ernie Pompa MD LAB BLOOD ORDERABLES Performing Organization Address [facility] Phon e Number [facility] (ABNORMAL) Spectrae Chemistry (03/24/2021) [facility] gist Method Time Signature BUN 63 (H) [...] Volume Laterality 03/24/2021 03/26/2021 12:2 9 PM SALES PERSON Narrative [facility] - 03/28/2021 Unless otherwise specified, test(s) performed at: [facility], [address] [place] [address] EDUCATION TECHNICIAN: Alec Payan M.D. For any questions, please call customer service at FREQUENCY:MONTHLY Resulting Agency Comment Specimen source: Serum Ernie Pompa MD LAB BLOOD ORDERABLES Performing Organization Address City/State/[facility] Code Phon e Number [facility]PS S[facility]RA [...] Volume Laterality 03/24/2021 03/26/2021 11:5 3 AM SALES PERSON Narrative [facility] - 03/26/2021 Unless otherwise specified, test(s) performed at: [facility], [address] [place] [address] EDUCATION TECHNICIAN: Alec Payan M.D. For any questions, please call customer service at FREQUENCY:MONTHLY Resulting Agency Comment Specimen source: Blood Ernie Pompa MD LAB BLOOD ORDERABLES Performing Organization Address City/[facility]/ZIP [facility] Phon e Number [facility] documented in this encounter Visit Diagnoses Not on filedocumented in this encounter
--- OUTSIDE RECORDS SUMMARY | 2021-11-11 09:35 | XMS_ITS | Encounter Summary ---
:1945 Author Organization [facility] Address [address] [place] [address] Care Team Providers Name Role Phone Unavailable Primary Care Provider Unavailable Encounter Details Date Type Department Care Team Description 06/23/2021 Orders Only [facility] O f Ernie Guzmán MD [address] [place] [address] [place], [place] [phone] (Wo rk) Social History Tobacco Use [...] Provider LAB BLOOD ORDERABLES Performing Organization Address City/[facility]/ZIP Code Phon e Number [facility] (ABNORMAL) HEMATOLOGY [...] 06/28/2021 Unless otherwise specified, test(s) performed at: [facility], [address] [place], [place] [id number] HARNESS CLEANER: Alec Payan M.D. For any questions, please call customer service at FREQUENCY:MONTHLY Resulting Agency Comment Specimen source: Blood Ernie Pompa MD LAB BLOOD ORDERABLES Performing Organization Address City/[facility]/ZIP Code Phon e Number [facility] HD KINETICS (06/23/2021) P athologist Signature % Urea 71 65 - 80 % [facility] Reduction [facility] Specimen (Source) Anatomical Collection Method Collection Time Re ceived Time Location / / Volume Laterality 06/23/2021 06/28/2021 12:3 1 PM CDT Resulting Agency Comment Specimen source: Plasma Ernie Pompa MD LAB BLOOD ORDERABLES Performing Organization Address City/[facility]/ZIP Code Phon e Number [facility] POST CHEMISTRY (06/23/2021) P athologist Signature BUN Post 19 6 - 19 [facility] Dialysis mg/dL [facility] Specimen (Source) Anatomical Collection Method Collection Time Re ceived Time Location / / Volume Laterality 06/23/2021 06/28/2021 12:3 1 PM CDT Narrative [facility] - 06/28/2021 Unless otherwise specified, test(s) performed at: [facility], [address] [place] [address] HARNESS CLEANER: Alec Payan, M.D. For any questions, please [...] 06/28/2021 Unless otherwise specified, test(s) performed at: [facility], [address] [place] [address] HARNESS CLEANER: Alec Payan M.D. For any questions, please call customer service at FREQUENCY:MONTHLY Resulting Agency Comment Specimen source: Serum Ernie Pompa MD LAB BLOOD ORDERABLES Performing Organization Address City/[facility] Phon e Number [facility] (ABNORMAL) Spectrae Chemistry (06/23/2021) P athologist Signature PTH 1,243 (H) 16 - 80 [facility] pg/mL [facility] Specimen (Source) Anatomical Collection Method Collection Time Re ceived Time Location / / Volume Laterality 06/23/2021 06/28/2021 10:1 5 AM CDT Narrative [facility] - 06/28/2021 Unless otherwise specified, test(s) performed at: [facility], [address] [place] [address] HARNESS CLEANER: Alec Payan M.D. For any questions, please call customer service at FREQUENCY:MONTHLY Resulting Agency Comment Specimen source: Plasma Ernie Pompa MD LAB BLOOD ORDERABLES Performing Organization Address City/[facility] Code Phon e Number [facility] documented in this encounter Visit Diagnoses Not on filedocumented in this encounter
--- OUTSIDE RECORDS SUMMARY | 2021-11-11 09:35 | XMS_ITS | Encounter Summary ---
:1945 Author Organization [facility] Address [address] [place] [address] Care Team Providers Name Role Phone Unavailable Primary Care Provider Unavailable Encounter Details Date Type Department Care Team Description 03/17/2021 Orders Only [facility] O f Ernie Guzmán MD [address] [place] [address] [place], [place] [phone] (Wo rk) Social History Tobacco Use [...] / Volume Laterality 03/17/2021 03/18/2021 9:32 AM HOUSEHOLD APPLIANCES SERVICE TECHNICIAN Narrative [facility] - 03/18/2021 Unless otherwise specified, test(s) performed at: [facility], [address] [place] [address] STEAM SHOVEL OPERATOR: Alec Payan M.D. For any questions, please call customer service at FREQUENCY:OTHER Resulting Agency Comment Specimen source: Blood Ernie Pompa MD LAB BLOOD ORDERABLES Performing Organization Address City/State/ZIP Code Phon e Number [facility] documented in this encounter Visit Diagnoses Not on filedocumented in this encounter
--- OUTSIDE RECORDS SUMMARY | 2021-11-11 09:35 | XMS_ITS | Encounter Summary ---
:1945 Author Organization [facility] Address [address] [place] [address] [address] [place] [address] Care Team Providers Name Role Phone Unavailable Primary Care Provider Unavailable Encounter Details Date Type Department Care Team Description 05/21/2021 Orders Only [facility] O f Ernie Guzmán MD [address] [place] [address] [place], [place] [phone] (Wo rk) Social History Tobacco Use [...] / Volume Laterality 05/21/2021 05/22/2021 1:14 PM CLIENT LEADER Resulting Agency Comment Specimen source: Serum Ernie Pompa MD LAB BLOOD ORDERABLES Performing Organization Address City/State/ZIP Code Phon e Number [facility] POST CHEMISTRY (05/21/2021) athologist Signature BUN Post 12 6 - 19 [facility] Dialysis mg/dL [facility] Specimen (Source) Anatomical Collection Method Collection Time Re ceived Time Location / / Volume Laterality 05/21/2021 05/22/2021 11:5 6 AM CLIENT LEADER Narrative [facility] - 05/22/2021 Unless otherwise specified, test(s) performed at: [facility], [address] [place] [address] CLERICAL ASSOCIATE: Alec Payan M.D. For any questions, please call customer service at FREQUENCY:OTHER Resulting Agency Comment Specimen source: Plasma Ernie Pompa MD LAB BLOOD ORDERABLES Performing Organization Address City/[facility]/ZIP Code Phon e Number [facility] (ABNORMAL) Spectrae Chemistry (05/21/2021) athologist Signature Ferritin 640 (H) 22 - 322 [facility] ng/mL [facility] BUN 43 (H) 6 - 19 [facility] mg/dL [facility] Specimen (Source) Anatomical Collection Method Collection Time Re ceived Time Location / / Volume Laterality 05/21/2021 05/22/2021 1:14 PM CLIENT LEADER Narrative [facility] - 05/22/2021 Unless otherwise specified, test(s) performed at: [facility], [address] [place] [address] CLERICAL ASSOCIATE: Alec Payan M.D. For any questions, please call customer service at FREQUENCY:OTHER Resulting Agency Comment Specimen source: Serum Ernie Pompa MD LAB BLOOD ORDERABLES Performing Organization Address City/State/ZIP Code Phon e Number [facility] documented in this encounter Visit Diagnoses Not on filedocumented in this encounter
--- OUTSIDE RECORDS SUMMARY | 2021-11-11 09:35 | XMS_ITS | Encounter Summary ---
:1945 Author Organization [facility] Address [address] [place] [address] Care Team Providers Name Role Phone Unavailable Primary Care Provider Unavailable Encounter Details Date Type Department Care Team Description 04/07/2021 [facility] Only [facility] O f Ernie Guzmán MD [address] [place] [address] [place], [place] [phone] (Wo rk) Social History Tobacco Use [...] Volume Laterality 04/07/2021 04/09/2021 11:4 3 AM STOCKHOLDER Narrative [facility] - 04/09/2021 Unless otherwise specified, test(s) performed at: [facility], [address] [place] [address] CLEANER WINDOW: Alec Payan M.D. For any questions, please call customer service at FREQUENCY:OTHER Resulting Agency Comment Specimen source: Blood Ernie Pompa MD LAB BLOOD ORDERABLES Performing Organization Address City/State/ZIP Code Phon e Number [facility] documented in this encounter Visit Diagnoses Not on filedocumented in this encounter
--- OUTSIDE RECORDS SUMMARY | 2021-11-11 09:35 | XMS_ITS | Encounter Summary ---
:1945 Author Organization [facility] Address [address] [place] [address] Care Team Providers Name Role Phone Unavailable Primary Care Provider Unavailable Encounter Details Date Type Department Care Team Description 03/03/2021 Treatment [facility] O Ernie Gómez MD [address] [place] [address] [place], [place] [phone] (Wo rk) Social History Tobacco Use Types Packs/Day Years Used Date Smoking Tobacco: Unknown Comments: Smoking History Info:Patient n ot screened Sex Assigned at Date Recorded Not on file documented as of this encounter Miscellaneous Notes Dialysis Note - Ernie Pompa MD - 03/03/2021 9:56 AM CST Date: Mar 03, 2021 Patient Name: Shaun Ocampo : 1945 Chart #: [id number] Sex: M This patient was personally seen [...] AM ) BP (sit): 124/50 AP(-) / AOC OPERATIONS INTELLIGENCE OFFICER: 188/160 Pulse: 72 Chairside data as of [...] 11/20/2020 Access Flow 1384 > 2000 1432 PLANNER INTERN: Ernie Pompa MD LOCATION: [place] [phone] SCHEDULE: -- 2nd Shift EDW: kg. DIALYZER: [...] again today, may need extra run at [facility] if can't get down over next week. 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 06/10: Doing well overall, no new complaints, [...] Went to Urgent care -> ER in [place] yesterday,CT with R hydro but no obstructive [...] He had infiltration last week, dialyzed at [facility] on Sat and went well, access [...] prescription. Vascular Access Assessment Type of access: [id number]/2019 Surgeon - Lary KUMARW Access working well [...] above goal. Intact PTH is at goal. Real Estate Financial Analyst will adjust binders and vitamin D per [...]
--- OUTSIDE RECORDS SUMMARY | 2021-11-11 09:35 | XMS_ITS | Encounter Summary ---
:1945 Author Organization [facility] Address [address] [place] [address] Care Team Providers Name Role Phone Unavailable Primary Care Provider Unavailable Encounter Details Date Type Department Care Team Description 06/02/2021 Orders Only [facility] O f Ernie Guzmán MD [phone] [place] [address] [place], [place] [phone] (Wo rk) Social History Tobacco Use [...] 06/03/2021 Unless otherwise specified, test(s) performed at: [facility], [address] [place] [address] DIRECT MARKETING SPECIALIST: Alec Payan M.D. For any questions, please call customer service at FREQUENCY:OTHER Resulting Agency Comment Specimen source: Blood Ernie Pompa MD LAB BLOOD ORDERABLES Performing Organization Address City/State/ZIP Code Phon e Number [facility]PS S[facility]RA [facility] documented in this encounter Visit Diagnoses Not on filedocumented in this encounter
--- OUTSIDE RECORDS SUMMARY | 2021-11-11 09:35 | XMS_ITS | Encounter Summary ---
:1945 Author Organization [facility] Address [address] [place] [address] Care Team Providers Name Role Phone Unavailable Primary Care Provider Unavailable Encounter Details Date Type Department Care Team Description 06/09/2021 Treatment [facility] f Ernie Guzmán MD [address] [place] [address] [place], [place] [phone] (Wo rk) Social History Tobacco Use Types Packs/Day Years Used Date Smoking Tobacco: Unknown Comments: Smoking History Info:Patient n ot screened Sex Assigned at Date Recorded Not on file documented as of this encounter Miscellaneous Notes Dialysis Note - Ernie Pompa MD - 06/09/2021 10:34 AM CDT Date: Jun 09, 2021 Patient Name: Shaun Ocampo : 1945 Chart #: [id number] Sex: M This patient was personally seen [...] AM ) BP (sit): 115/55 AP(-) / BOILER/CHILLER OPERATOR: 161/150 Pulse: 67 Chairside data as of [...] mcg IVP Every 2 weeks 06/09/2021 06/08/2022 RECORDER HELPER GRAVITY PROSPECTING: Ernie Pompa MD LOCATION: [phone] SCHEDULE: -- 2nd Shift ACCESS: EDW: kg. [...] improving. Fluid gains continue to be high, [facility] not open on this week, says he will do his best withlimiting salt/fluid. HE does feel SOB with exertion with extra fluid on, no orthopnea. 05/26/21: Has SOB when >5 Kg over dry weight, extra run last week at [facility] helped. Trying his best with fluid restriction. [...] extra run and we discussed going to [facility] tomorrow for UF only run and he [...] again today, may need extra run at [facility] if can't get down over next week. 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 06/10: Doing well overall, no new complaints, [...] Went to Urgent care -> ER in [place] yesterday,CT with R hydro but no obstructive [...] He had infiltration last week, dialyzed at [facility] on Sat and went well, [...] (05/05/21) Vascular Access Assessment: Type of access: [id number]/[email or web address] Surgeon - Lary GARDNER Access working well [...]
--- OUTSIDE RECORDS SUMMARY | 2021-11-11 09:35 | XMS_ITS | Encounter Summary ---
:1945 Author Organization [facility] Address [address] [place] [address] Care Team Providers Name Role Phone Unavailable Primary Care Provider Unavailable Encounter Details Date Type Department Care Team Description 05/26/2021 Treatment [facility] O f Ernie Guzmán MD [address] [place] [address] [place], [place] [phone] [phone] (Wo rk) Social History Tobacco Use Types Packs/Day Years Used Date Smoking Tobacco: Unknown Comments: Smoking History Info:Patient n ot screened Sex Assigned at Date Recorded Not on file documented as of this encounter Miscellaneous Notes Dialysis Note - Ernie Pompa MD - 05/26/2021 10:14 AM CST Date: May 26, 2021 Patient Name: Shaun Ocampo : 1945 Chart #: [id number] Sex: M This patient was personally seen [...] AM ) BP (sit): 117/59 AP(-) / SETUP TECHNICIAN: 176/154 Pulse: 78 Chairside data as of [...] mcg IVP Every 2 weeks 05/26/2021 05/25/2022 DROP FORGER HELPER: Ernie Pompa MD LOCATION: [facility] [phone] SCHEDULE: -- 2nd Shift EDW: kg. DIALYZER: HD DURATION: NEEDLE SIZE: ANTICOAG: BATH: QB: ml/min QD: ml/min Subjective Tolerating dialysis well. 05/26/21: Has SOB when >5 Kg over dry weight, extra run last week at [place] helped. Trying his best with fluid restriction. [...] well. He had extra run prior to [facility] and ran [facility] that week an got [...] extra run and we discussed going to [place] tomorrow for UF only run and he [...] again today, may need extra run at [place] if can't get down over next week. 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 06/10: Doing well overall, no new complaints, [...] Went to Urgent care -> ER in [place] yesterday,CT with R hydro but no obstructive [...] He had infiltration last week, dialyzed at [facility] on Sat and went well, access [...] yet and still with mild edema. 08/27: hSaun is doing really well, no symptoms with [...] prescription. Vascular Access Assessment Type of access: [id number]/2019 Surgeon - Lary KUMARW Access working well [...] at goal. Intact PTH is above goal. Athletic Field Custodian will adjust binders and vitamin D per [...] as tolerated, may need extra run at [place] again if can't achieve dry weight Continue [...]
--- OUTSIDE RECORDS SUMMARY | 2021-11-11 09:35 | XMS_ITS | Encounter Summary ---
:1945 Author Organization [facility] Address [address] [place] [address] Care Team Providers Name Role Phone Unavailable Primary Care Provider Unavailable Encounter Details Date Type Department Care Team Description 05/19/2021 Orders [facility] O f Ernie Guzmán MD [address] [place] [address] [place], [place] [phone] (Wo rk) Social History Tobacco Use [...] Provider LAB BLOOD ORDERABLES Performing Organization Address [facility] Phon e Number KAMERON IMMUNO CHEMISTRY (05/19/2021) P athologist Signature Hep B Surface Negative Negative APS SPECTRA Ag [facility] Specimen (Source) Anatomical Collection Method Collection Time Re ceived Time Location / / Volume Laterality 05/19/2021 05/20/2021 3:10 PM FLIGHT TEACHER Narrative [facility] - 05/20/2021 Unless otherwise specified, test(s) performed at: [facility], [address] [place], [place] [address] SUPPORT SERVICES MANAGER: Alec Payan M.D. For any questions, please call customer service at FREQUENCY:MONTHLY Resulting Agency Comment Specimen source: Serum Ernie Pompa MD LAB BLOOD ORDERABLES Performing Organization Address [facility] Phon e Number [facility]PS SPECTRA [facility] HD KINETICS (05/19/2021) P athologist Signature % Urea 69 65 - 80 % [facility] SPECT[facility] Reduction [facility] Specimen (Source) Anatomical Collection Method Collection Time Re ceived Time Location / / Volume Laterality 05/19/2021 05/20/2021 3:12 PM FLIGHT TEACHER Narrative [facility]PS SPECTRA [facility] - 05/20/2021 Unless otherwise specified, test(s) performed at: [facility], [address] [place] [address] SUPPORT SERVICES MANAGER: Alec Payan M.D. For any questions, please call customer service at FREQUENCY:MONTHLY Resulting Agency Comment Specimen source: Serum Ernie Pompa MD LAB BLOOD ORDERABLES Performing Organization Address [facility] Phon e Number APS SPECTRA [...] / Volume Laterality 05/19/2021 05/20/2021 3:10 PM FLIGHT TEACHER Narrative [facility]PS SPECTRA [facility] - 05/20/2021 Unless otherwise specified, test(s) performed at: [facility], [address] [place] [address] SUPPORT SERVICES MANAGER: Alec Payan M.D. For any questions, [...] / Volume Laterality 05/19/2021 05/20/2021 2:08 PM FLIGHT TEACHER Narrative APS SPECTRA [facility] - 05/20/2021 Unless otherwise specified, test(s) performed at: [facility], [address] [place] [address] SUPPORT SERVICES MANAGER: Alec Payan M.D. For any questions, [...] Volume Laterality 05/19/2021 05/20/2021 12:5 8 PM FLIGHT TEACHER Narrative [facility]PS SPECTRA [facility] - 05/20/2021 Unless otherwise specified, test(s) performed at: [facility], [address] [place] [address] SUPPORT SERVICES MANAGER: Alec Payan M.D. For any questions, please call customer service at FREQUENCY:MONTHLY Resulting Agency Comment Specimen source: Blood Ernie Pompa MD LAB BLOOD ORDERABLES Performing Organization Address City/State/ZIP Code Phon e Number [facility] S[facility]RA [facility] documented in this encounter Visit Diagnoses Not on filedocumented in this encounter
--- OUTSIDE RECORDS SUMMARY | 2021-11-11 09:35 | XMS_ITS | Encounter Summary ---
:1945 Author Organization [facility] Address [address] [place] [address] Care Team Providers Name Role Phone Unavailable Primary Care Provider Unavailable Encounter Details Date Type Department Care Team Description 03/31/2021 Orders [facility] O f Ernie Guzmán MD [address] [place] [address] [place], [place] [phone] (Wo rk) Social History Tobacco Use [...] Volume Laterality 03/31/2021 04/01/2021 10:3 5 PM TANK SHOP SUPERVISOR Narrative [facility]PS SPECTRA [facility] - 04/02/2021 Unless otherwise specified, test(s) performed at: [facility], [address] [place] [address] MAILROOM CLERK: Alec Payan M.D. For any questions, [...] / Volume Laterality 03/31/2021 04/01/2021 4:18 PM TANK SHOP SUPERVISOR Narrative APS SPECTRA [facility] - 04/02/2021 Unless otherwise specified, test(s) performed at: [facility], [address] [place], [place] [id number] MAILROOM CLERK: Alec Payan M.D. For any questions, please call customer service at FREQUENCY:OTHER Resulting Agency Comment Specimen source: Plasma Ernie Pompa MD LAB BLOOD ORDERABLES Performing Organization Address [facility] Phon e Number APS SPECTRA [facility] (ABNORMAL) HEMATOLOGY (03/31/2021) Analysis Performed At Patho logist Time Signature Hemoglobin 11.0 (L) 14.0 - [facility] SPECTRA 18.0 g/dL [facility] Hemoglobin x 3 33.0 (L) 42.0 - [facility]RA 54.0 % [facility] Specimen (Source) Anatomical Collection Method Collection Time Re ceived Time Location / / Volume Laterality 03/31/2021 04/01/2021 3:40 PM TANK SHOP SUPERVISOR Narrative APS SPECTRA [facility] - 04/02/2021 Unless otherwise specified, test(s) performed at: [facility], [address] [place] [address] MAILROOM CLERK: Alec Payan M.D. For any questions, please call customer service at FREQUENCY:OTHER Resulting Agency Comment Specimen source: Blood Ernie Pompa MD LAB BLOOD ORDERABLES Performing Organization Address City/[facility] Phon e Number APS SPECTRA [facility] documented in this encounter Visit Diagnoses Not on filedocumented in this encounter
--- OUTSIDE RECORDS SUMMARY | 2021-11-11 09:35 | XMS_ITS | Encounter Summary ---
:1945 Author Organization [facility] Address [address] [place] [address] Care Team Providers Name Role Phone Unavailable Primary Care Provider Unavailable Encounter Details Date Type Department Care Team Description 05/17/2021 Orders [facility] O f Ernie Guzmán MD [phone] [place] [address] [place], [place] [phone] (Wo rk) Social History Tobacco Use [...] / Volume Laterality 05/17/2021 05/18/2021 1:48 PM FLIGHT OPERATIONS COORDINATOR Narrative APS SPECTRA [facility] - 05/18/2021 Unless otherwise specified, test(s) performed at: [facility], [address] [place] [address] REPORTER: Alec Payan M.D. For any questions, please [...] Volume Laterality 05/17/2021 05/18/2021 11:1 2 AM FLIGHT OPERATIONS COORDINATOR Narrative APS SPECTRA [facility] - 05/18/2021 Unless otherwise specified, test(s) performed at: [facility], [address] [place] [address] REPORTER: Alec Payan M.D. For any questions, please call customer service at FREQUENCY:OTHER Resulting Agency Comment Specimen source: Serum Ernie Pompa MD LAB BLOOD ORDERABLES Performing Organization Address City/[facility]/ZIP Code Phon e Number [facility]PS SPECTRA [facility] documented in this encounter Visit Diagnoses Not on filedocumented in this encounter
--- OUTSIDE RECORDS SUMMARY | 2021-11-11 09:35 | XMS_ITS | Encounter Summary ---
:1945 Author Organization [facility] Address [address] [place] [address] Care Team Providers Name Role Phone Unavailable Primary Care Provider Unavailable Encounter Details Date Type Department Care Team Description 05/12/2021 Orders [facility] O f Ernie Guzmán MD [address] [place] [address] [place], [place] [phone] (Wo rk) Social History Tobacco Use [...] / Volume Laterality 05/12/2021 05/13/2021 1:22 PM CERTIFIED TUMOR REGISTRAR Narrative [facility]PS SPECTRA [facility] - 05/13/2021 Unless otherwise specified, test(s) performed at: [facility], [address] [place] [address] INBOUND CUSTOMER SERVICE REPRESENTATIVE: Alec Payan M.D. For any questions, please call customer service at FREQUENCY:OTHER Resulting Agency Comment Specimen source: Blood Ernie Pompa MD LAB BLOOD ORDERABLES Performing Organization Address City/State/ZIP Code Phon e Number [facility]PS SPECTRA [facility] documented in this encounter Visit Diagnoses Not on filedocumented in this encounter
--- OUTSIDE RECORDS SUMMARY | 2021-11-11 09:35 | XMS_ITS | Encounter Summary ---
:1945 Author Organization [facility] Address [address] [place] [address] Care Team Providers Name Role Phone Unavailable Primary Care Provider Unavailable Encounter Details Date Type Department Care Team Description 07/07/2021 Orders [facility] O f Ernie Guzmán MD [phone] [place] [address] [place], [place] [phone] (Wo rk) Social History Tobacco Use [...] 07/10/2021 Unless otherwise specified, test(s) performed at: [facility], [address] [place] [address] JEWEL SUPERVISOR: Alec Payan M.D. For any questions, [...] 07/10/2021 Unless otherwise specified, test(s) performed at: [facility], [address] [place], [place] [phone] JEWEL SUPERVISOR: Alec Payan M.D. For any questions, please call customer service at FREQUENCY:OTHER Resulting Agency Comment Specimen source: Plasma Ernie Pompa MD LAB BLOOD ORDERABLES Performing Organization Address [facility] Phon e Number APS SPECTRA [facility] (ABNORMAL) [...] 07/10/2021 Unless otherwise specified, test(s) performed at: [facility], [address] [place] [address] JEWEL SUPERVISOR: Alec Payan M.D. For any questions, please call customer service at FREQUENCY:OTHER Resulting Agency Comment Specimen source: Blood Ernie Pompa MD LAB BLOOD ORDERABLES Performing Organization Address City/[facility]/ZIP [facility] Phon e Number APS SPECTRA [facility] documented in this encounter Visit Diagnoses Not on filedocumented in this encounter
--- OUTSIDE RECORDS SUMMARY | 2021-11-11 09:35 | XMS_ITS | Encounter Summary ---
:1945 Author Organization [facility] Address [address] [place] [address] Care Team Providers Name Role Phone Unavailable Primary Care Provider Unavailable Encounter Details Date Type Department Care Team Description 03/24/2021 Treatment [facility] O f Ernie Guzmán MD [address] [place] [address] [place], [place] [phone] (Wo rk) Social History Tobacco Use Types Packs/Day Years Used Date Smoking Tobacco: Unknown Comments: Smoking History Info:Patient n ot screened Sex Assigned at Date Recorded Not on file documented as of this encounter Miscellaneous Notes Dialysis Note - Ernie Pompa MD - 03/24/2021 9:04 AM CST Date: Mar 24, 2021 Patient Name: Shaun Ocampo : 1945 Chart #: [id number] Sex: M This patient was personally seen [...] AM ) BP (sit): 114/54 AP(-) / FLOOR SWEEPER: 170/152 Pulse: 69 Chairside data as of [...] 0.25 mcg ORAL Every Treatment 03/08/2021 03/07/2022 LABORER STARCH FACTORY: Ernie Pompa MD LOCATION: [phone] SCHEDULE: M-W-F 2nd Shift EDW: kg. DIALYZER: [...] extra run and we discussed going to [place] tomorrow for UF only run and he [...] again today, may need extra run at [place] if can't get down over next week. 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 06/10: Doing well overall, no new complaints, [...] Went to Urgent care -> ER in [place] yesterday,CT with R hydro but no obstructive [...] He had infiltration last week, dialyzed at [facility] on Sat and went well, [...] prescription. Vascular Access Assessment Type of access: [id number]/2019 Surgeon Annita GARDNER Access working well Anemia [...] above goal. Intact PTH is at goal. Pharmaceutical Process Engineer will adjust binders and vitamin D [...]
--- OUTSIDE RECORDS SUMMARY | 2021-11-11 09:35 | XMS_ITS | Encounter Summary ---
:1945 Author Organization [facility] Address [address] [place] [address] Care Team Providers Name Role Phone Unavailable Primary Care Provider Unavailable Encounter Details Date Type Department Care Team Description 04/14/2021 Treatment [facility] O f Ernie Guzmán MD [address] [place] [address] [place], [place] [phone] [phone] (Wo rk) Social History Tobacco Use Types Packs/Day Years Used Date Smoking Tobacco: Unknown Comments: Smoking History Info:Patient n ot screened Sex Assigned at Date Recorded Not on file documented as of this encounter Miscellaneous Notes Dialysis Note - Ernie Pompa MD - 04/14/2021 10:26 AM CST Date: Apr 14, 2021 Patient Name: Shaun Ocampo : 1945 Chart #: [id number] Sex: M This patient was personally seen [...] AM ) BP (sit): 110/48 AP(-) / TABULATING MACHINE MECHANIC: 166/145 Pulse: 77 Chairside data as of [...] mcg IVP Every 2 weeks 04/07/2021 04/06/2022 PHYSICIAN ASST: Ernie Pompa MD LOCATION: [phone] SCHEDULE: M-W- 2nd Shift ACCESS: EDW: kg. [...] extra run and we discussed going to [place] tomorrow for UF only run and he [...] again today, may need extra run at [place] if can't get down over next week. 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 06/10: Doing well overall, no new complaints, [...] Went to Urgent care -> ER in [place] yesterday,CT with R hydro but no obstructive [...] He had infiltration last week, dialyzed at [facility] on Sat and went well, access ok [...] yet and still with mild edema. 08/27: Shanu is doing really well, no symptoms with [...] (02/17/21) Vascular Access Assessment: Type of access: [id number]/2019 Surgeon - Lary GARDNER Access working well [...]
--- OUTSIDE RECORDS SUMMARY | 2021-11-11 09:35 | XMS_ITS | Encounter Summary ---
:1945 Author Organization [facility] Address [address] [place] [address] Care Team Providers Name Role Phone Unavailable Primary Care Provider Unavailable Encounter Details Date Type Department Care Team Description 06/09/2021 Orders Only [facility] O f Ernie Guzmán MD [address] [place] [address] [place], [place] [phone] (Wo rk) Social History Tobacco Use [...] 06/10/2021 Unless otherwise specified, test(s) performed at: [facility], [address] [place] [address] HIDE CURER: Alec Payan M.D. For any questions, please call customer service at FREQUENCY:OTHER Resulting Agency Comment Specimen source: Blood Ernie Pompa MD LAB BLOOD ORDERABLES Performing Organization Address City/State/ZIP Code Phon e Number [facility]PS SPECTRA [facility] documented in this encounter Visit Diagnoses Not on filedocumented in this encounter
--- OUTSIDE RECORDS SUMMARY | 2021-11-11 09:35 | XMS_ITS | Encounter Summary ---
:1945 Author Organization [facility] Address [address] [place] [address] Care Team Providers Name Role Phone Unavailable Primary Care Provider Unavailable Encounter Details Date Type Department Care Team Description 06/16/2021 [facility] O f Ernie Guzmán MD [address] [place] [address] [place], [place] [phone] (Wo rk) Social History Tobacco Use [...] 06/17/2021 Unless otherwise specified, test(s) performed at: [facility] [address] [place] [address] GRINDER SET UP OPERATOR EXTERNAL: Alec Payan M.D. For any questions, please call customer service at FREQUENCY:OTHER Resulting Agency Comment Specimen source: Blood Ernie Pompa MD LAB BLOOD ORDERABLES Performing Organization Address City/State/ZIP Code Phon e Number [facility]PS SPECTRA [facility] documented in this encounter Visit Diagnoses Not on filedocumented in this encounter
--- OUTSIDE RECORDS SUMMARY | 2021-11-11 09:35 | XMS_ITS | Encounter Summary ---
:1945 Author Organization [facility] Address [address] [place] [address] Care Team Providers Name Role Phone Unavailable Primary Care Provider Unavailable Encounter Details Date Type Department Care Team Description 06/30/2021 Treatment [facility] f Ernie Guzmán MD [address] [place] [address] [place], [place] [phone] (Wo rk) Social History Tobacco Use Types Packs/Day Years Used Date Smoking Tobacco: Unknown Comments: Smoking History Info:Patient n ot screened Sex Assigned at Date Recorded Not on file documented as of this encounter Miscellaneous Notes Dialysis Note - Ernie Pompa MD - 06/30/2021 11:03 AM CDT Date: Jun 30, 2021 Patient Name: Shaun Ocampo : 1945 Chart #: [id number] Sex: M This patient was personally seen [...] AM ) BP (sit): 100/42 AP(-) / IT SERVICE CONTINUITY SUPERVISOR: 167/131 Pulse: 78 Chairside data as of [...] 05/28/2021 04/23/2021 04/02/2021 Access Flow [id number] Treatment Medication Orders Medication Sig Start Date [...] mcg IVP Every 4 weeks 06/23/2021 06/22/2022 BASIC COMBATANT SWIMMER: Ernie Pompa MD LOCATION: [phone] SCHEDULE: -- 2nd Shift EDW: kg. DIALYZER: [...] improving. Fluid gains continue to be high, [place] not open on this week, says he will do his best withlimiting salt/fluid. HE does feel SOB with exertion with extra fluid on, no orthopnea. 05/26/21: Has SOB when >5 Kg over dry weight, extra run last week at [place] helped. Trying his best with fluid restriction. [...] extra run and we discussed going to [place] tomorrow for UF only run and he [...] again today, may need extra run at [place] if can't get down over next week. 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 06/10: Doing well overall, no new complaints, [...] Went to Urgent care -> ER in [place] yesterday,CT with R hydro but no obstructive [...] dialyzed at [facility] on Sat and went well, access ok [...] prescription. Vascular Access Assessment Type of access: [id number]/2019 Surgeon Annita KUMARW Access working well Anemia [...] at goal. Intact PTH is above goal. Solderer will adjust binders and vitamin D per [...] to prescription Extra UF run tomorrow at [place] Continue work on lower IDWG's Ernie Pompa MD [ Signed And locked electronically On 06/30/2021 at 11:05:31 AM ] Transcribed: Ernie Pompa ( 06/30/2021 ) documented in this encounter Plan of Treatment Not on filedocumented as of this encounter Visit Diagnoses Not on filedocumented in this encounter
--- OUTSIDE RECORDS SUMMARY | 2021-11-11 09:35 | XMS_ITS | Encounter Summary ---
:1945 Author Organization [facility] Address [address] [place] [address] Care Team Providers Name Role Phone Unavailable Primary Care Provider Unavailable Encounter Details Date Type Department Care Team Description 03/03/2021 Orders [facility] f Ernie Guzmán MD [address] [place] [address] [place], [place] [phone] (Wo rk) Social History Tobacco Use [...] / Volume Laterality 03/03/2021 03/04/2021 2:44 PM STRATIGRAPHER Narrative [facility] - 03/05/2021 Unless otherwise specified, test(s) performed at: [facility], [address] [place] [address] INSTRUCTIONAL PARAPROFESSIONAL: Alec Payan M.D. For any questions, please call customer service at FREQUENCY:OTHER Resulting Agency Comment Specimen source: Serum Ernie Leither MD LAB BLOOD ORDERABLES Performing Organization Address City/[facility]/ZIP Code Phon e Number [facility] (ABNORMAL) HEMATOLOGY (03/03/2021) Analysis Performed At Patho logist Time Signature Hemoglobin 10.2 (L) 14.0 - [facility] 18.0 g/dL [facility] Hemoglobin x 3 30.6 (L) 42.0 - [facility] 54.0 % [facility] Specimen (Source) Anatomical Collection Method Collection Time Re ceived Time Location / / Volume Laterality 03/03/2021 03/04/2021 1:44 PM STRATIGRAPHER Narrative [facility] - 03/04/2021 Unless otherwise specified, test(s) performed at: [facility], [address] [place] [address] INSTRUCTIONAL PARAPROFESSIONAL: Alec Payan M.D. For any questions, please call customer service at FREQUENCY:OTHER Resulting Agency Comment Specimen source: Blood Ernie Pompa MD LAB BLOOD ORDERABLES Performing Organization Address City/[facility] Phon e Number [facility] documented in this encounter Visit Diagnoses Not on filedocumented in this encounter
--- OUTSIDE RECORDS SUMMARY | 2021-11-11 09:35 | XMS_ITS | Encounter Summary ---
:1945 Author Organization [facility] Address [address] [place] [address] Care Team Providers Name Role Phone Unavailable Primary Care Provider Unavailable Encounter Details Date Type Department Care Team Description 04/28/2021 [facility] f Ernie Guzmán MD [phone] [place] [address] [place], [place] [phone] (Wo rk) Social History Tobacco Use [...] Volume Laterality 04/28/2021 04/29/2021 12:1 6 PM CERTIFIED DIETARY MANAGER Narrative [facility] - 04/29/2021 Unless otherwise specified, test(s) performed at: [facility] [address] [place] [address] GROUNDWATER PROGRAMS DIRECTOR: Alec Payan M.D. For any questions, please call customer service at FREQUENCY:OTHER Resulting Agency Comment Specimen source: Blood Ernie Pompa MD LAB BLOOD ORDERABLES Performing Organization Address City/State/ZIP Code Phon e Number [facility] documented in this encounter Visit Diagnoses Not on filedocumented in this encounter
--- OUTSIDE RECORDS SUMMARY | 2021-11-11 09:35 | XMS_ITS | Encounter Summary ---
:1945 Author Organization [facility] Address [address] [place] [address] Care Team Providers Name Role Phone Unavailable Primary Care Provider Unavailable Encounter Details Date Type Department Care Team Description 04/21/2021 Orders [facility] f Ernie Guzmán MD [address] [place] [address] [place], [place] [phone] (Wo rk) Social History Tobacco Use [...] Provider LAB BLOOD ORDERABLES Performing Organization Address City/[facility]/ZIP Code Phon e Number [place] (ABNORMAL) Spectrae Chemistry (04/21/2021) athologist Signature PTH 1,441 (H) 16 - 80 [facility] pg/mL [facility] Specimen (Source) Anatomical Collection Method Collection Time Re ceived Time Location / / Volume Laterality 04/21/2021 04/22/2021 1:39 PM WATCH REPAIRER Narrative [facility] - 04/23/2021 Unless otherwise specified, test(s) performed at: [facility], [address] [place], [place] [address] LOAN COLLECTOR: Alec Payan M.D. For any questions, please call customer service at FREQUENCY:MONTHLY Resulting Agency Comment Specimen source: Plasma Ernie Pompa MD LAB BLOOD ORDERABLES Performing Organization Address [facility] Phon e Number [facility] IMMUNO CHEMISTRY (04/21/2021) athologist [facility] Hep B Surface Negative Negative [facility]PS SPECTRA Ag [facility] Specimen (Source) Anatomical Collection Method Collection Time Re ceived Time Location / / Volume Laterality 04/21/2021 04/22/2021 3:00 PM WATCH REPAIRER Narrative [facility] - 04/22/2021 Unless otherwise specified, test(s) performed at: [facility], [address] [place] [address] LOAN COLLECTOR: Alec Payan M.D. For any questions, please call customer service at FREQUENCY:MONTHLY Resulting Agency Comment Specimen source: Serum Ernie Pompa MD LAB BLOOD ORDERABLES Performing Organization Address City/[facility]/ZIP [facility] Phon e Number [facility] HD KINETICS (04/21/2021) athologist Signature % Urea 72 65 - 80 % [facility] Reduction [facility] Specimen (Source) Anatomical Collection Method Collection Time Re ceived Time Location / / Volume Laterality 04/21/2021 04/22/2021 5:02 PM WATCH REPAIRER Resulting Agency Comment Specimen source: Plasma Ernie Pompa MD LAB BLOOD ORDERABLES Performing Organization Address City/State/ZIP Code Phon e Number [facility] POST CHEMISTRY (04/21/2021) P athologist Signature BUN Post 17 6 - 19 [facility] Dialysis mg/dL [facility] Specimen (Source) Anatomical Collection Method Collection Time Re ceived Time Location / / Volume Laterality 04/21/2021 04/22/2021 5:01 PM WATCH REPAIRER Narrative [facility] - 04/22/2021 Unless otherwise specified, test(s) performed at: [facility], [address] [place] [address] LOAN COLLECTOR: Alec Payan M.D. For any questions, please [...] / Volume Laterality 04/21/2021 04/22/2021 3:00 PM WATCH REPAIRER Narrative [facility] - 04/22/2021 Unless otherwise specified, test(s) performed at: [facility], [address] [place] [address] LOAN COLLECTOR: Alec Payan M.D. For any questions, please [...] / Volume Laterality 04/21/2021 04/22/2021 1:17 PM WATCH REPAIRER Narrative [facility] - 04/22/2021 Unless otherwise specified, test(s) performed at: [facility], [address] [place] [address] LOAN COLLECTOR: Alec Payan M.D. For any questions, please call customer service at FREQUENCY:MONTHLY Resulting Agency Comment Specimen source: Blood Ernie Pompa MD LAB BLOOD ORDERABLES Performing Organization Address City/State/ZIP Code Phon e Number [facility] documented in this encounter Visit Diagnoses Not on filedocumented in this encounter
--- OUTSIDE RECORDS SUMMARY | 2021-11-11 09:35 | XMS_ITS | Encounter Summary ---
:1945 Author Organization [facility] Address [address] [place] [address] Care Team Providers Name Role Phone Unavailable Primary Care Provider Unavailable Encounter Details Date Type Department Care Team Description 05/05/2021 Treatment [facility] f Ernie Guzmán MD [address] [place] [address] [place], [place] [phone] [phone] (Wo rk) Social History Tobacco Use Types Packs/Day Years Used Date Smoking Tobacco: Unknown Comments: Smoking History Info:Patient n ot screened Sex Assigned at Date Recorded Not on file documented as of this encounter Miscellaneous Notes Dialysis Note - Ernie Pompa MD - 05/05/2021 10:18 AM CST Date: May 05, 2021 Patient Name: Shaun Ocampo : 1945 Chart #: [id number] Sex: M This patient was personally seen [...] AM ) BP (sit): 110/50 AP(-) / PREBOARDER: 174/144 Pulse: 73 Chairside data as of [...] mcg IVP Every 2 weeks 04/28/2021 04/27/2022 DOG CONTROL OFFICER: Ernie Pompa MD LOCATION: [phone] SCHEDULE: M-W-F 2nd Shift ACCESS: EDW: kg. [...] extra run and we discussed going to [place] tomorrow for UF only run and he [...] again today, may need extra run at [place] if can't get down over next week. 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 06/10: Doing well overall, no new complaints, [...] Went to Urgent care -> ER in [place] yesterday,CT with R hydro but no obstructive [...] He had infiltration last week, dialyzed at [facility] on Sat and went well, [...] (03/24/21) Vascular Access Assessment: Type of access: [id number]/2019 Surgeon - Lary GARDNER Access working well [...]
--- OUTSIDE RECORDS SUMMARY | 2021-11-11 09:35 | XMS_ITS | Encounter Summary ---
:1945 Author Organization [facility] Address [address] [place] [address] Care Team Providers Name Role Phone Unavailable Primary Care Provider Unavailable Encounter Details Date Type Department Care Team Description 07/14/2021 Treatment [facility] f Ernie Guzmán MD [address] [place] [address] [place], [place] [phone] [phone] (Wo rk) Social History Tobacco Use Types Packs/Day Years Used Date Smoking Tobacco: Unknown Comments: Smoking History Info:Patient n ot screened Sex Assigned at Date Recorded Not on file documented as of this encounter Miscellaneous Notes Dialysis Note - Ernie Pompa MD - 07/14/2021 9:22 AM CDT Date: Jul 14, 2021 Patient Name: Shaun Ocampo : 1945 Chart #: [id number] Sex: M This patient was personally seen [...] AM ) BP (sit): 99/43 AP(-) / CHOCOLATE REFINING ROLLER: 152/133 Pulse: 67 Chairside data as of [...] mcg IVP Every 4 weeks 06/23/2021 06/22/2022 VISION CARE ASSOCIATE: Ernie Pompa MD LOCATION: [place] [phone] SCHEDULE: -- 2nd Shift ACCESS: EDW: kg. DIALYZER: HD DURATION: NEEDLE SIZE: ANTICOAG: BATH: QB: ml/min QD: ml/min Subjective Tolerating dialysis well. 07/14/21: Continues to have high gains, unfortunately [place] without staff to open tomorrow for extra [...] had steroid injections in knees yesterday at [facility]. To do PT as well. He pulled muscle in his lower arm on L side last week getting into car, hurt a lot but is improving. Fluid gains continue to be high, [place] not open on this week, says he will do his best withlimiting salt/fluid. HE does feel SOB with exertion with extra fluid on, no orthopnea. 05/26/21: Has SOB when >5 Kg over dry weight, extra run last week at [place] helped. Trying his best with fluid restriction. [...] extra run and we discussed going to [place] tomorrow for UF only run and he [...] again today, may need extra run at [place] if can't get down over next week. 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 06/10: Doing well overall, no new complaints, [...] Went to Urgent care -> ER in [place] yesterday,CT with R hydro but no obstructive [...] (05/26/21) Vascular Access Assessment: Type of access: [id number]/2019 Surgeon - Lary GARDNER Access working well [...] to go further to get this as [place] not open but he doesn't feel he can drive that far Ernie Pompa MD [ Signed And locked electronically On 07/14/2021 at 09:24:45 AM ] Transcribed: Ernie Pompa ( 07/14/2021 ) documented in this encounter Plan of Treatment Not on filedocumented as of this encounter Visit Diagnoses Not on filedocumented in this encounter
--- OUTSIDE RECORDS SUMMARY | 2021-11-11 09:35 | XMS_ITS | Encounter Summary ---
:1945 Author Organization [facility] Address [address] [place] [address] Care Team Providers Name Role Phone Unavailable Primary Care Provider Unavailable Encounter Details Date Type Department Care Team Description 04/21/2021 Treatment [facility] f Ernie Guzmán MD [address] [place] [address] [place], [place] [phone] (Wo rk) Social History Tobacco Use Types Packs/Day Years Used Date Smoking Tobacco: Unknown Comments: Smoking History Info:Patient n ot screened Sex Assigned at Date Recorded Not on file documented as of this encounter Miscellaneous Notes Dialysis Note - Ernie Pompa MD - 04/21/2021 8:58 AM CST Date: Apr 21, 2021 Patient Name: Shaun Ocampo : 1945 Chart #: [id number] Sex: M This patient was personally seen [...] AM ) BP (sit): 113/62 AP(-) / GLOBAL MARKETING OPERATIONS MANAGER: 176/155 Pulse: 78 Chairside data as of [...] 50 mg IVP 1X Week 04/12/2021 04/11/2022 SHIRT IRONER SUPERVISOR: Ernie Pompa MD LOCATION: [phone] SCHEDULE: M-W-F 2nd Shift EDW: kg. DIALYZER: [...] extra run and we discussed going to [place] tomorrow for UF only run and he [...] again today, may need extra run at [place] if can't get down over next week. 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 06/10: Doing well overall, no new complaints, [...] Went to Urgent care -> ER in [place] yesterday,CT with R hydro but no obstructive [...] prescription. Vascular Access Assessment Type of access: [id number]/2019 Surgeon - Lary GARDNER Access working well [...] at goal. Intact PTH is above goal. Steel Post Installer will adjust binders and vitamin D per [...]
--- OUTSIDE RECORDS SUMMARY | 2021-11-11 09:35 | XMS_ITS | Encounter Summary ---
:1945 Author Organization [facility] Address [address] [place] [address] Care Team Providers Name Role Phone Unavailable Primary Care Provider Unavailable Encounter Details Date Type Department Care Team Description 03/10/2021 Treatment [facility] O Ernie Gómez MD [address] [place] [address] [place], [place] [phone] [phone] (Wo rk) Social History Tobacco Use Types Packs/Day Years Used Date Smoking Tobacco: Unknown Comments: Smoking History Info:Patient n ot screened Sex Assigned at Date Recorded Not on file documented as of this encounter Miscellaneous Notes Dialysis Note - Ernie Pompa MD - 03/10/2021 9:40 AM CST Date: Mar 10, 2021 Patient Name: Shaun Ocampo : 1945 Chart #: [id number] Sex: M This patient was personally seen [...] AM ) BP (sit): 116/55 AP(-) / WATCH REPAIRER: 171/146 Pulse: 70 Chairside data as of [...] 0.25 mcg ORAL Every Treatment 03/08/2021 03/07/2022 CONSTRUCTION CHECKER: Ernie Pompa MD LOCATION: [phone] SCHEDULE: -W-F 2nd Shift ACCESS: EDW: kg. DIALYZER: HD DURATION: NEEDLE SIZE: ANTICOAG: BATH: QB: ml/min QD: ml/min Subjective Tolerating dialysis well. 03/10/21: He has been marching in place and increasing duration to try and gain endurance, feels this is helping. Fluid gains continue to be high, no chance of reaching EDW this week without an extra run and we discussed going to [place] tomorrow for UF only run and he [...] again today, may need extra run at [place] if can't get down over next week. 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 06/10: Doing well overall, no new [...] Went to Urgent care -> ER in [place] yesterday,CT with R hydro but no obstructive [...] (12/23/20) Vascular Access Assessment: Type of access: [id number]/2019 Surgeon - Lary GARDNER Access working well [...]
--- OUTSIDE RECORDS SUMMARY | 2021-11-11 09:35 | XMS_ITS | Encounter Summary ---
:1945 Author Organization [facility] Address [address] [place] [address] Care Team Providers Name Role Phone Unavailable Primary Care Provider Unavailable Encounter Details Date Type Department Care Team Description 02/24/2021 Orders [facility] O f Ernie Guzmán MD [address] [place] [address] [place], [place] [phone] (Wo rk) Social History Tobacco Use [...] / Volume Laterality 02/24/2021 02/25/2021 6:54 PM METAL FRAMER Narrative [facility] - 02/26/2021 Unless otherwise specified, test(s) performed at: [facility], [address] [place] [address] INDUSTRIAL EQUIPMENT MECHANIC: Alec Payan M.D. For any questions, please call customer service at FREQUENCY:OTHER Resulting Agency Comment Specimen source: Serum Ernie Pompa MD LAB BLOOD ORDERABLES Performing Organization Address City/[facility]/ZIP Code Phon e Number [facility] (ABNORMAL) HEMATOLOGY (02/24/2021) Analysis Performed At Patho logist Time Signature Hemoglobin 10.2 (L) 14.0 - [facility] 18.0 g/dL [facility] Hemoglobin x 3 30.6 (L) 42.0 - [facility] 54.0 % [facility] Specimen (Source) Anatomical Collection Method Collection Time Re ceived Time Location / / Volume Laterality 02/24/2021 02/25/2021 10:2 3 AM METAL FRAMER Narrative [facility] - 02/25/2021 Unless otherwise specified, test(s) performed at: [facility], [address] [place] [address] INDUSTRIAL EQUIPMENT MECHANIC: Alec Payan M.D. For any questions, please call customer service at FREQUENCY:OTHER Resulting Agency Comment Specimen source: Blood Ernie Pompa MD LAB BLOOD ORDERABLES Performing Organization Address City/[facility] Phon e Number [facility] documented in this encounter Visit Diagnoses Not on filedocumented in this encounter
--- OUTSIDE RECORDS SUMMARY | 2021-11-11 09:35 | XMS_ITS | Encounter Summary ---
:1945 Author Organization [facility] Address [address] [place] [address] Care Team Providers Name Role Phone Unavailable Primary Care Provider Unavailable Encounter Details Date Type Department Care Team Description 03/10/2021 Orders [facility] O f Ernie Guzmán MD [address] [place] [address] [place], [place] [phone] (Wo rk) Social History Tobacco Use [...] Volume Laterality 03/10/2021 03/11/2021 10:5 0 AM ELEMENTARY SCIENCE TEACHER Narrative [facility] - 03/11/2021 Unless otherwise specified, test(s) performed at: [facility], [address] [place] [address] OIL TESTER: Alec Payan M.D. For any questions, please call customer service at FREQUENCY:OTHER Resulting Agency Comment Specimen source: Blood Ernie Pompa MD LAB BLOOD ORDERABLES Performing Organization Address City/State/ZIP Code Phon e Number [facility] documented in this encounter Visit Diagnoses Not on filedocumented in this encounter
--- OUTSIDE RECORDS SUMMARY | 2021-11-11 09:35 | XMS_ITS | Encounter Summary ---
:1945 Author Organization [facility] Address [address] [place] [address] Care Team Providers Name Role Phone Unavailable Primary Care Provider Unavailable Encounter Details Date Type Department Care Team Description 07/14/2021 [facility] O f Ernie Guzmán MD [address] [place] [address] [place], [place] [phone] (Wo rk) Social History Tobacco Use [...] 07/15/2021 Unless otherwise specified, test(s) performed at: [facility], [address] [place] [address] TRANSPORTATION AID: Alec Payan M.D. For any questions, please call customer service at FREQUENCY:OTHER Resulting Agency Comment Specimen source: Blood Ernie Pompa MD LAB BLOOD ORDERABLES Performing Organization Address City/State/ZIP Code Phon e Number [facility] documented in this encounter Visit Diagnoses Not on filedocumented in this encounter
--- OUTSIDE RECORDS SUMMARY | 2021-11-11 09:36 | XMS_ITS | Encounter Summary ---
:1945 Author Organization [facility] Address [address] [place] [address] Care Team Providers Name Role Phone Unavailable Primary Care Provider Unavailable Encounter Details Date Type Department Care Team Description 11/11/2020 Orders [facility] O f Ernie Guzmán MD [address] [place] [address] [place], [place] [phone] (Wo rk) Social History Tobacco Use [...] 11/12/2020 Unless otherwise specified, test(s) performed at: [facility], [address] [place] [address] PRODUCTION BORING MACHINE OPERATOR: Alec Payan M.D. For any questions, please call customer service at FREQUENCY:OTHER Resulting Agency Comment Specimen source: Blood Ernie Pompa MD LAB BLOOD ORDERABLES Performing Organization Address City/State/ZIP Code Phon e Number [facility] documented in this encounter Visit Diagnoses Not on filedocumented in this encounter
--- OUTSIDE RECORDS SUMMARY | 2021-11-11 09:36 | XMS_ITS | Encounter Summary ---
:1945 Author Organization [facility] Address [address] [place] [address] Care Team Providers Name Role Phone Unavailable Primary Care Provider Unavailable Encounter Details Date Type Department Care Team Description 12/09/2020 Orders Only [facility] O f Ernie Guzmán MD [phone] [place] [address] [place], [place] [phone] (Wo rk) Social History Tobacco Use [...] 12/10/2020 Unless otherwise specified, test(s) performed at: [facility], [address] [place] [address] STEAM PRESSURE CHAMBER OPERATOR: Alec Payan M.D. For any questions, please call customer service at FREQUENCY:OTHER Resulting Agency Comment Specimen source: Blood Ernie Pompa MD LAB BLOOD ORDERABLES Performing Organization Address City/State/ZIP Code Phon e Number APS SPECTRA [facility] documented in this encounter Visit Diagnoses Not on filedocumented in this encounter
--- OUTSIDE RECORDS SUMMARY | 2021-11-11 09:36 | XMS_ITS | Encounter Summary ---
:1945 Author Organization [facility] Address [address] [place] [address] Care Team Providers Name Role Phone Unavailable Primary Care Provider Unavailable Encounter Details Date Type Department Care Team Description 11/11/2020 Treatment [facility] f Ernie Guzmán MD [address] [place] [address] [place], [place] [address] [phone] (Wo rk) Social History Tobacco Use Types Packs/Day Years Used Date Smoking Tobacco: Unknown Comments: Smoking History Info:Patient n ot screened Sex Assigned at Date Recorded Not on file documented as of this encounter Miscellaneous Notes Dialysis Note - Ernie Pompa MD - 11/11/2020 9:40 AM CDT Date: Nov 11, 2020 Patient Name: Shaun Ocampo : 1945 Chart #: [id number] Sex: M This patient was personally seen [...] AM ) BP (sit): 128/53 AP(-) / FISH HOUSE WORKER: 223/184 Pulse: 75 Chairside data as of [...] 08/21/2020 Access Flow > 2000 [id number] BUSINESS INVESTOR: Ernie Pompa MD LOCATION: [place] [phone] SCHEDULE: -W- 2nd Shift ACCESS: EDW: kg. 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 06/10: Doing well overall, no new complaints, [...] Went to Urgent care -> ER in [place] yesterday,CT with R hydro but no obstructive [...] (08/19/20) Vascular Access Assessment: Type of access: [id number] Surgeon - Lary GARDNER Access working well [...]
--- OUTSIDE RECORDS SUMMARY | 2021-11-11 09:36 | XMS_ITS | Encounter Summary ---
:1945 Author Organization [facility] Address [address] [place] [address] Care Team Providers Name Role Phone Unavailable Primary Care Provider Unavailable Encounter Details Date Type Department Care Team Description 09/16/2020 Orders Only [facility] O f Ernie Guzmán MD [phone] [place] [address] [place], [place] [phone] (Wo rk) Social History Tobacco Use [...] 09/17/2020 Unless otherwise specified, test(s) performed at: [facility], [address] [place] [address] MULTIMEDIA SERVICES MANAGER: Alec Payan M.D. For any questions, please call customer service at FREQUENCY:OTHER Resulting Agency Comment Specimen source: Blood Ernie Pompa MD LAB BLOOD ORDERABLES Performing Organization Address City/State/ZIP Code Phon e Number APS SPECTRA [facility] documented in this encounter Visit Diagnoses Not on filedocumented in this encounter
--- OUTSIDE RECORDS SUMMARY | 2021-11-11 09:36 | XMS_ITS | Encounter Summary ---
:1945 Author Organization [facility] Address [address] [place] [address] Care Team Providers Name Role Phone Unavailable Primary Care Provider Unavailable Encounter Details Date Type Department Care Team Description 02/17/2021 Orders Only [facility] O f Ernie Guzmán MD [address] [place] [address] [place], [place] [phone] (Wo rk) Social History Tobacco Use [...] / Volume Laterality 02/17/2021 02/18/2021 4:14 PM CHIEF MECHANICAL OFFICER Resulting Agency Comment Specimen source: Serum Ernie Pompa MD LAB BLOOD ORDERABLES Performing Organization Address City/[facility]/ZIP Code Phon e Number APS SPECTRA [facility] POST CHEMISTRY (02/17/2021) P athologist Signature BUN Post 13 6 - 19 APS SPECTRA Dialysis mg/dL [facility] Specimen (Source) Anatomical Collection Method Collection Time Re ceived Time Location / / Volume Laterality 02/17/2021 02/18/2021 4:00 PM CHIEF MECHANICAL OFFICER Narrative APS SPECTRA [facility] - 02/19/2021 Unless otherwise specified, test(s) performed at: [facility], [address] [place] [address] RESERVATIONS CLERK: Alec Payan M.D. For any questions, please call customer service at FREQUENCY:MONTHLY Resulting Agency Comment Specimen source: Plasma Ernie Pompa MD LAB BLOOD ORDERABLES Performing Organization Address City/[facility] Code Phon e Number APS SPECTRA [facility] IMMUNO CHEMISTRY (02/17/2021) P athologist Signature Hep B Surface Negative Negative APS SPECTRA Ag [facility] Specimen (Source) Anatomical Collection Method Collection Time Re ceived Time Location / / Volume Laterality 02/17/2021 02/18/2021 4:08 PM CHIEF MECHANICAL OFFICER Narrative APS SPECTRA [facility] - 02/18/2021 Unless otherwise specified, test(s) performed at: [facility], [address] [place] [address] RESERVATIONS CLERK: Alec Payan M.D. For any questions, please call customer service at FREQUENCY:MONTHLY Resulting Agency Comment Specimen source: Serum Ernie Pompa MD LAB BLOOD ORDERABLES Performing Organization Address City/State/ZIP Code Phon e Number APS SPECTRA [facility] (ABNORMAL) Spectrae Chemistry (02/17/2021) [facility] Method Time Signature BUN 46 (H) [...] / Volume Laterality 02/17/2021 02/18/2021 4:08 PM CHIEF MECHANICAL OFFICER Narrative APS SPECTRA [facility] - 02/18/2021 Unless otherwise specified, test(s) performed at: [facility], [address] [place] [address] RESERVATIONS CLERK: Alec Payan M.D. For any questions, please call customer service at FREQUENCY:MONTHLY Resulting Agency Comment Specimen source: Serum Ernie Pmopa MD LAB BLOOD ORDERABLES Performing Organization Address City/[facility] Code Phon e Number APS SPECTRA [...] / Volume Laterality 02/17/2021 02/18/2021 9:53 AM CHIEF MECHANICAL OFFICER Narrative APS SPECTRA [facility] - 02/18/2021 Unless otherwise specified, test(s) performed at: [facility], [address] [place] [address] RESERVATIONS CLERK: Alec Payan M.D. For any questions, please call customer service at FREQUENCY:MONTHLY Resulting Agency Comment Specimen source: Blood Ernie Pompa MD LAB BLOOD ORDERABLES Performing Organization Address City/[facility]/ZIP [facility] Phon e Number APS SPECTRA [facility] (ABNORMAL) Spectrae Chemistry (02/17/2021) P athologist Signature PTH 546 (H) 16 - 80 APS SPECTRA pg/mL [facility] Specimen (Source) Anatomical Collection Method Collection Time Re ceived Time Location / / Volume Laterality 02/17/2021 02/18/2021 10:3 2 AM CHIEF MECHANICAL OFFICER Narrative APS SPECTRA [facility] - 02/18/2021 Unless otherwise specified, test(s) performed at: [facility], [address] [place] [address] RESERVATIONS CLERK: Alec Payan M.D. For any questions, please call customer service at FREQUENCY:MONTHLY Resulting Agency Comment Specimen source: Plasma Ernie Pompa MD LAB BLOOD ORDERABLES Performing Organization Address City/State/ZIP Code Phon e Number APS SPECTRA [facility] documented in this encounter Visit Diagnoses Not on filedocumented in this encounter
--- OUTSIDE RECORDS SUMMARY | 2021-11-11 09:36 | XMS_ITS | Encounter Summary ---
:1945 Author Organization [facility] Address [address] [place] [address] Care Team Providers Name Role Phone Unavailable Primary Care Provider Unavailable Encounter Details Date Type Department Care Team Description 11/18/2020 Orders Only [facility] O f Ernie Guzmán MD [address] [place] [address] [place], [place] [phone] (Wo rk) Social History Tobacco Use [...] 11/19/2020 Unless otherwise specified, test(s) performed at: [facility], [address] [place] [address] NURSES MEDICAL ASSISTANTS PHLEBOTOMISTS: Alec Payan M.D. For any questions, please call customer service at FREQUENCY:MONTHLY Resulting Agency Comment Specimen source: Plasma Ernie Pompa MD LAB BLOOD ORDERABLES Performing Organization Address City/[facility] Code Phon e Number APS SPECTRA [facility] IMMUNO CHEMISTRY (11/18/2020) P athologist Signature Hep B Surface Negative Negative APS SPECTRA Ag [facility] Specimen (Source) Anatomical Collection Method Collection Time Re ceived Time Location / / Volume Laterality 11/18/2020 11/19/2020 3:22 PM CDT Narrative APS SPECTRA [facility] - 11/19/2020 Unless otherwise specified, test(s) performed at: [facility], [address] [place] [address] NURSES MEDICAL ASSISTANTS PHLEBOTOMISTS: Alec Payan M.D. For any questions, please [...] 11/19/2020 Unless otherwise specified, test(s) performed at: [facility], [address] [place] [address] NURSES MEDICAL ASSISTANTS PHLEBOTOMISTS: Alec Payan M.D. For any questions, please call customer service at FREQUENCY:MONTHLY Resulting Agency Comment Specimen source: Blood Ernie Pompa MD LAB BLOOD ORDERABLES Performing Organization Address City/State/[facility] Code Phon e Number APS SPECTRA [facility] (ABNORMAL) Spectrae Chemistry (11/18/2020) P athologist Signature PTH 969 (H) 16 - 80 APS SPECTRA pg/mL [facility] Specimen (Source) Anatomical Collection Method Collection Time Re ceived Time Location / / Volume Laterality 11/18/2020 11/19/2020 5:01 PM CDT Narrative APS SPECTRA [facility] - 11/19/2020 Unless otherwise specified, test(s) performed at: [facility], [address] [place] [address] NURSES MEDICAL ASSISTANTS PHLEBOTOMISTS: Alec Payan M.D. For any questions, please call customer service at FREQUENCY:MONTHLY Resulting Agency Comment Specimen source: Plasma Ernie Pompa MD LAB BLOOD ORDERABLES Performing Organization Address City/State/ZIP Code Phon e Number APS SPECTRA [facility] (ABNORMAL) Spectrae Chemistry (11/18/2020) [employer] gist Method Time Signature BUN 51 (H) [...] 11/19/2020 Unless otherwise specified, test(s) performed at: [facility], [address] [place] [address] NURSES MEDICAL ASSISTANTS PHLEBOTOMISTS: Alec Payan M.D. For any questions, please call customer service at FREQUENCY:MONTHLY Resulting Agency Comment Specimen source: Serum Ernie Pompa MD LAB BLOOD ORDERABLES Performing Organization Address City/State/ZIP Code Phon e Number APS SPECTRA [facility] documented in this encounter Visit Diagnoses Not on filedocumented in this encounter
--- OUTSIDE RECORDS SUMMARY | 2021-11-11 09:36 | XMS_ITS | Encounter Summary ---
:1945 Author Organization [facility] Address [address] [place] [address] Care Team Providers Name Role Phone Unavailable Primary Care Provider Unavailable Encounter Details Date Type Department Care Team Description 10/28/2020 Orders Only [facility] O f Ernie Guzmán MD [address] [place] [address] [place], [place] [phone] (Wo rk) Social History Tobacco Use [...] 10/29/2020 Unless otherwise specified, test(s) performed at: [facility], [address] [place] [address] MULTIMEDIA TECHNICIAN: Alec Payan M.D. For any questions, please call customer service at FREQUENCY:OTHER Resulting Agency Comment Specimen source: Blood Ernie Pompa MD LAB BLOOD ORDERABLES Performing Organization Address City/State/ZIP Code Phon e Number APS SPECTRA [facility] documented in this encounter Visit Diagnoses Not on filedocumented in this encounter
--- OUTSIDE RECORDS SUMMARY | 2021-11-11 09:36 | XMS_ITS | Encounter Summary ---
:1945 Author Organization [facility] Address [address] [place] [address] Care Team Providers Name Role Phone Unavailable Primary Care Provider Unavailable Encounter Details Date Type Department Care Team Description 11/04/2020 Orders Only [facility] O f Ernie Guzmán MD [address] [place] [address] [place], [place] [phone] (Wo rk) Social History Tobacco Use [...] 11/05/2020 Unless otherwise specified, test(s) performed at: [facility], [address] [place] [address] AUTOMOBILE AND PROPERTY UNDERWRITER: Alec Payan M.D. For any questions, please call customer service at FREQUENCY:OTHER Resulting Agency Comment Specimen source: Blood Ernie Pompa MD LAB BLOOD ORDERABLES Performing Organization Address City/State/ZIP Code Phon e Number APS SPECTRA [facility] documented in this encounter Visit Diagnoses Not on filedocumented in this encounter
--- OUTSIDE RECORDS SUMMARY | 2021-11-11 09:36 | XMS_ITS | Encounter Summary ---
:1945 Author Organization [facility] Address [address] [place] [address] Care Team Providers Name Role Phone Unavailable Primary Care Provider Unavailable Encounter Details Date Type Department Care Team Description 02/03/2021 Orders Only [facility] O f Ernie Guzmán MD [address] [place] [address] [place], [place] [phone] (Wo rk) Social History Tobacco Use [...] Volume Laterality 02/03/2021 02/04/2021 11:2 7 AM ESCORT VEHICLE DRIVER Narrative APS SPECTRA [facility] - 02/04/2021 Unless otherwise specified, test(s) performed at: [facility], [address] [place] [address] HAND OR MACHINE PASTER: Alec Payan M.D. For any questions, please call customer service at FREQUENCY:OTHER Resulting Agency Comment Specimen source: Blood Ernie Pompa MD LAB BLOOD ORDERABLES Performing Organization Address City/State/ZIP Code Phon e Number APS SPECTRA [facility] documented in this encounter Visit Diagnoses Not on filedocumented in this encounter
--- OUTSIDE RECORDS SUMMARY | 2021-11-11 09:36 | XMS_ITS | Encounter Summary ---
:1945 Author Organization [facility] Address [address] [place] [address] Care Team Providers Name Role Phone Unavailable Primary Care Provider Unavailable Encounter Details Date Type Department Care Team Description 09/30/2020 Orders Only [facility] O f Ernie Guzmán MD [address] [place] [address] [place], [place] [phone] (Wo rk) Social History Tobacco Use [...] Provider LAB BLOOD ORDERABLES Performing Organization Address [facility] Code Phon e Number KAMERON (ABNORMAL) [...] 10/02/2020 Unless otherwise specified, test(s) performed at: [email or web address], [address] [place], [place] [address] SEAT TRIMMER: Alec Payan M.D. For any questions, please call customer service at FREQUENCY:OTHER Resulting Agency Comment Specimen source: Blood Ernie Pompa MD LAB BLOOD ORDERABLES Performing Organization Address [facility] Phon e Number APS SPECTRA [facility] HD KINETICS (09/30/2020) P athologist Signature % Urea 77 65 - 80 % APS SPECTRA Reduction [facility] Specimen (Source) Anatomical Collection Method Collection Time Re ceived Time Location / / Volume Laterality 09/30/2020 10/01/2020 5:40 PM CDT Narrative APS SPECTRA [facility] - 10/01/2020 Unless otherwise specified, test(s) performed at: [email or web address], [address] [place] [address] SEAT TRIMMER: Alec Payan M.D. For any questions, please call customer service at FREQUENCY:OTHER Resulting Agency Comment Specimen source: Serum Ernie Pompa MD LAB BLOOD ORDERABLES Performing Organization Address [facility] Phon e Number APS SPECTRA [facility] (ABNORMAL) Spectrae Chemistry (09/30/2020) P athologist Signature BUN 44 (H) 6 - 19 APS SPECTRA mg/dL [facility] Specimen (Source) Anatomical Collection Method Collection Time Re ceived Time Location / / Volume Laterality 09/30/2020 10/01/2020 5:39 PM CDT Narrative APS SPECTRA [facility] - 10/01/2020 Unless otherwise specified, test(s) performed at: [email or web address], [address] [place] [address] SEAT TRIMMER: Alec Payan M.D. For any questions, please call customer service at FREQUENCY:OTHER Resulting Agency Comment Specimen source: Serum Ernie Pompa MD LAB BLOOD ORDERABLES Performing Organization Address City/[facility]/ZIP [facility] Phon e Number APS SPECTRA [facility] POST CHEMISTRY (09/30/2020) P athologist Signature BUN Post 10 6 - 19 APS SPECTRA Dialysis mg/dL [facility] Specimen (Source) Anatomical Collection Method Collection Time Re ceived Time Location / / Volume Laterality 09/30/2020 10/01/2020 12:4 3 PM CDT Narrative APS SPECTRA [facility] - 10/01/2020 Unless otherwise specified, test(s) performed at: [email or web address], [address] [place] [address] SEAT TRIMMER: Alec Payan M.D. For any questions, please call customer service at FREQUENCY:OTHER Resulting Agency Comment Specimen source: Plasma Ernie Pompa MD LAB BLOOD ORDERABLES Performing Organization Address City/[facility]/ZIP [facility] Phon e Number APS SPECTRA [facility] documented in this encounter Visit Diagnoses Not on filedocumented in this encounter
--- OUTSIDE RECORDS SUMMARY | 2021-11-11 09:36 | XMS_ITS | Encounter Summary ---
:1945 Author Organization [facility] Address [address] [place] [address] Care Team Providers Name Role Phone Unavailable Primary Care Provider Unavailable Encounter Details Date Type Department Care Team Description 01/06/2021 Orders Only [facility] O f Ernie Guzmán MD [address] [place] [address] [place], [place] [phone] (Wo rk) Social History Tobacco Use [...] 01/07/2021 Unless otherwise specified, test(s) performed at: [email or web address], [address] [place] [address] RESTAURANT LEAD: Alec Payan M.D. For any questions, please call customer service at FREQUENCY:OTHER Resulting Agency Comment Specimen source: Blood Ernie Pompa MD LAB BLOOD ORDERABLES Performing Organization Address City/State/ZIP Code Phon e Number APS SPECTRA [facility] documented in this encounter Visit Diagnoses Not on filedocumented in this encounter
--- OUTSIDE RECORDS SUMMARY | 2021-11-11 09:36 | XMS_ITS | Encounter Summary ---
:1945 Author Organization [facility] Address [address] [place] [address] Care Team Providers Name Role Phone Unavailable Primary Care Provider Unavailable Encounter Details Date Type Department Care Team Description 09/23/2020 Treatment [facility] f Ernie Guzmán MD [address] [place] [address] [place], [place] [address] [phone] (Wo rk) Social History Tobacco Use Types Packs/Day Years Used Date Smoking Tobacco: Unknown Comments: Smoking History Info:Patient n ot screened Sex Assigned at Date Recorded Not on file documented as of this encounter Miscellaneous Notes Dialysis Note - Ernie Pompa MD - 09/23/2020 10:44 AM CDT Date: Sep 23, 2020 Patient Name: Shaun Ocampo : 1945 Chart #: [id number] Sex: M This patient was personally seen [...] AM ) BP (sit): 103/52 AP(-) / AIR BRAKE OPERATOR: 235/188 Pulse: 72 Chairside data as of [...] Every 2 weeks During Dialysis 09/16/2020 09/15/2021 REGISTERED RESPIRATORY TECHNICIAN: Ernie Pompa MD LOCATION: [phone] SCHEDULE: Aravind-- 2nd Shift EDW: kg. 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 06/10: Doing well overall, no new complaints, [...] Went to Urgent care -> ER in [place] yesterday,CT with R hydro but no [...] He had infiltration last week, dialyzed at [facility] on Sat and went well, [...] prescription. Vascular Access Assessment Type of access: [id number] Surgeon - Lary GARDNER Access working well [...] at goal. Intact PTH is above goal. Application Development Project Manager will adjust binders and vitamin D [...]
--- OUTSIDE RECORDS SUMMARY | 2021-11-11 09:36 | XMS_ITS | Encounter Summary ---
:1945 Author Organization [facility] Address [address] [place] [address] Care Team Providers Name Role Phone Unavailable Primary Care Provider Unavailable Encounter Details Date Type Department Care Team Description 12/30/2020 Orders Only [facility] O f Ernie Guzmán MD [address] [place] [address] [place], [place] [phone] (Wo rk) Social History Tobacco Use [...] 12/31/2020 Unless otherwise specified, test(s) performed at: [facility], [address] [place] [address] RADIO STATION MANAGER: Alec Payan M.D. For any questions, please call customer service at FREQUENCY:OTHER Resulting Agency Comment Specimen source: Blood Ernie Pompa MD LAB BLOOD ORDERABLES Performing Organization Address City/State/ZIP Code Phon e Number APS SPECTRA [facility] documented in this encounter Visit Diagnoses Not on filedocumented in this encounter
--- OUTSIDE RECORDS SUMMARY | 2021-11-11 09:36 | XMS_ITS | Encounter Summary ---
:1945 Author Organization [facility] Address [address] [place] [address] Care Team Providers Name Role Phone Unavailable Primary Care Provider Unavailable Encounter Details Date Type Department Care Team Description 11/18/2020 Treatment [facility] O Ernie Gómez MD [address] [place] [address] [place], [place] [address] [phone] (Wo rk) Social History Tobacco Use Types Packs/Day Years Used Date Smoking Tobacco: Unknown Comments: Smoking History Info:Patient n ot screened Sex Assigned at Date Recorded Not on file documented as of this encounter Miscellaneous Notes Dialysis Note - Ernie Pompa MD - 11/18/2020 9:48 AM CDT Date: Nov 18, 2020 Patient Name: Shaun Ocampo : 1945 Chart #: [id number] Sex: M This patient was personally seen [...] 1.5 mcg ORAL Every Treatment 11/02/2020 11/01/2021 PILLOW FILLER: Ernie Pompa MD LOCATION: [phone] SCHEDULE: -- 2nd Shift EDW: kg. 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 06/10: Doing well overall, no new complaints, [...] Went to Urgent care -> ER in [place] yesterday,CT with R hydro but no obstructive [...] He had infiltration last week, dialyzed at [facility] on Sat and went well, access [...] prescription. Vascular Access Assessment Type of access: [id number] Surgeon Annita KUMARW Access working well Anemia [...] above goal. Intact PTH is above goal. Exterior Work Helper will adjust binders and vitamin D [...]
--- OUTSIDE RECORDS SUMMARY | 2021-11-11 09:36 | XMS_ITS | Encounter Summary ---
:1945 Author Organization [facility] Address [address] [place] [address] Care Team Providers Name Role Phone Unavailable Primary Care Provider Unavailable Encounter Details Date Type Department Care Team Description 10/21/2020 Treatment [facility] Ernie Gómez MD [address] [place] [address] [place], [place] [phone] [phone] (Wo rk) Social History Tobacco Use Types Packs/Day Years Used Date Smoking Tobacco: Unknown Comments: Smoking History Info:Patient n ot screened Sex Assigned at Date Recorded Not on file documented as of this encounter Miscellaneous Notes Dialysis Note - Ernie Pompa MD - 10/21/2020 12:00 PM CDT Date: Oct 21, 2020 Patient Name: Shaun Ocampo : 1945 Chart #: [id number] Sex: M This patient was personally seen [...] Every 2 weeks During Dialysis 09/30/2020 09/29/2021 TRANSPORT SPECIALIST: Ernie Pompa MD LOCATION: [phone] SCHEDULE: -W- 2nd Shift EDW: kg. 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 06/10: Doing well overall, no new complaints, [...] Went to Urgent care -> ER in [place] yesterday,CT with R hydro but no obstructive [...] had infiltration last week, dialyzed at [facility] on Sat and went [...] prescription. Vascular Access Assessment Type of access: [id number]/2019 Surgeon - Lary KUMARW Access working well [...] at goal. Intact PTH is above goal. Dynamometer Tester Engine will adjust binders and vitamin D per [...] monitor closely without changes at this time Ernie Pompa MD [ Signed And locked electronically On 10/21/2020 at 12:02:45 PM ] Transcribed: Ernie Pompa ( 10/21/2020 ) documented in this encounter Plan of Treatment Not on filedocumented as of this encounter Visit Diagnoses Not on filedocumented in this encounter
--- OUTSIDE RECORDS SUMMARY | 2021-11-11 09:36 | XMS_ITS | Encounter Summary ---
:1945 Author Organization [facility] Address [address] [place] [address] Care Team Providers Name Role Phone Unavailable Primary Care Provider Unavailable Encounter Details Date Type Department Care Team Description 10/14/2020 Orders Only [facility] f Ernie Guzmán MD [phone] [place] [address] [place], [place] [phone] (Wo rk) Social History Tobacco Use [...] 10/15/2020 Unless otherwise specified, test(s) performed at: [facility], [address] [place] [address] PRESIDENT EDUCATIONAL INSTITUTION: Alec Payan M.D. For any questions, please call customer service at FREQUENCY:OTHER Resulting Agency Comment Specimen source: Blood Ernie Pompa MD LAB BLOOD ORDERABLES Performing Organization Address City/State/ZIP Code Phon e Number [facility] documented in this encounter Visit Diagnoses Not on filedocumented in this encounter
--- OUTSIDE RECORDS SUMMARY | 2021-11-11 09:36 | XMS_ITS | Encounter Summary ---
:1945 Author Organization [facility] Address [address] [place] [address] Care Team Providers Name Role Phone Unavailable Primary Care Provider Unavailable Encounter Details Date Type Department Care Team Description 12/30/2020 Treatment [facility] O Ernie Gómez MD [address] [place] [address] [place], [place] [phone] (Wo rk) Social History Tobacco Use Types Packs/Day Years Used Date Smoking Tobacco: Unknown Comments: Smoking History Info:Patient n ot screened Sex Assigned at Date Recorded Not on file documented as of this encounter Miscellaneous Notes Dialysis Note - Ernie Pompa MD - 12/30/2020 11:49 AM CDT Date: Dec 30, 2020 Patient Name: Shaun Ocampo : 1945 Chart #: [id number] Sex: M This patient was personally seen [...] AM ) BP (sit): 117/57 AP(-) / TRIM ATTACHER: 240/207 Pulse: 75 Chairside data as of [...] 2.0 mcg ORAL Every Treatment 12/30/2020 12/29/2021 DELIVERY AIDE: Ernie Pompa MD LOCATION: [facility] [phone] SCHEDULE: -- 2nd Shift EDW: kg. 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 06/10: Doing well overall, no new complaints, [...] Went to Urgent care -> ER in [place] yesterday,CT with R hydro but no obstructive [...] infiltration last week, dialyzed at [facility] on Sat and went well, [...] prescription. Vascular Access Assessment Type of access: [id number]/2019 Surgeon Annita GARDNER Access working well Anemia [...] at goal. Intact PTH is at goal. Medical Numerical Control Operator will adjust binders and vitamin D [...]
--- OUTSIDE RECORDS SUMMARY | 2021-11-11 09:36 | XMS_ITS | Encounter Summary ---
:1945 Author Organization [facility] Address [address] [place] [address] Care Team Providers Name Role Phone Unavailable Primary Care Provider Unavailable Encounter Details Date Type Department Care Team Description 02/03/2021 Treatment [facility] Ernie Gómez MD [address] [place] [address] [place], [place] [phone] (Wo rk) Social History Tobacco Use Types Packs/Day Years Used Date Smoking Tobacco: Unknown Comments: Smoking History Info:Patient n ot screened Sex Assigned at Date Recorded Not on file documented as of this encounter Miscellaneous Notes Dialysis Note - Ernie Pompa MD - 02/03/2021 11:33 AM CST Date: Feb 03, 2021 Patient Name: Shaun Ocampo : 1945 Chart #: [id number] Sex: M This patient was personally seen [...] 2.0 mcg ORAL Every Treatment 12/30/2020 12/29/2021 WASTE MANAGEMENT SPECIALIST: Ernie Pompa MD LOCATION: [facility] [phone] SCHEDULE: M-W- 2nd Shift ACCESS: EDW: kg. [...] for ureteral ?tumor early next month in [place]. 06/10: Doing well overall, no new complaints, [...] Went to Urgent care -> ER in [place] yesterday,CT with R hydro but no obstructive [...] (11/18/20) Vascular Access Assessment: Type of access: [id number]/2019 Surgeon - Lary GARDNER Access working well [...]
--- OUTSIDE RECORDS SUMMARY | 2021-11-11 09:36 | XMS_ITS | Encounter Summary ---
:1945 Author Organization [facility] Address [address] [place] [address] Care Team Providers Name Role Phone Unavailable Primary Care Provider Unavailable Encounter Details Date Type Department Care Team Description 01/27/2021 Orders [facility] f Ernie Guzmán MD [phone] [place] [address] [place], [place] [phone] (Wo rk) Social History Tobacco Use [...] Volume Laterality 01/27/2021 01/28/2021 10:1 8 PM RETAIL SALES VITAMIN CONSULTANT Narrative [facility] - 01/29/2021 Unless otherwise specified, test(s) performed at: [facility], [address] [place] [address] METALLURGICAL INSPECTOR: Alec Payan M.D. For any questions, please [...] Volume Laterality 01/27/2021 01/28/2021 10:4 1 PM RETAIL SALES VITAMIN CONSULTANT Narrative [facility] - 01/29/2021 Unless otherwise specified, test(s) performed at: [facility], [address] [place] [address] METALLURGICAL INSPECTOR: Alec Payan M.D. For any questions, please call customer service at FREQUENCY:OTHER Resulting Agency Comment Specimen source: Serum Ernei Pompa MD LAB BLOOD ORDERABLES Performing Organization Address City/State/ZIP Code Phon e Number [facility] documented in this encounter Visit Diagnoses Not on filedocumented in this encounter
--- OUTSIDE RECORDS SUMMARY | 2021-11-11 09:36 | XMS_ITS | Encounter Summary ---
:1945 Author Organization [facility] Address [address] [place] [address] Care Team Providers Name Role Phone Unavailable Primary Care Provider Unavailable Encounter Details Date Type Department Care Team Description 09/23/2020 Orders [facility] O f Ernie Guzmán MD [address] [place] [address] [place], [place] [phone] (Wo rk) Social History Tobacco Use [...] 09/24/2020 Unless otherwise specified, test(s) performed at: [facility], [address] [place] [address] COST CONTROL SUPERVISOR: Alec Payan M.D. For any questions, please call customer service at FREQUENCY:MONTHLY Resulting Agency Comment Specimen source: Plasma Ernie Pompa MD LAB BLOOD ORDERABLES Performing Organization Address City/[facility]/ZIP Code Phon e Number [facility] [...] 09/24/2020 Unless otherwise specified, test(s) performed at: [facility], [address] [place] [address] COST CONTROL SUPERVISOR: Alec Payan M.D. For any questions, please call customer service at FREQUENCY:MONTHLY Resulting Agency Comment Specimen source: Blood Ernie Pompa MD LAB BLOOD ORDERABLES Performing Organization Address City/[facility] Phon e Number [facility] IMMUNO [...] BANK TEST ORDERABL ES Performing Organization Address City/[facility]/ZIP Code Phon e Number [facility] [...] 09/24/2020 Unless otherwise specified, test(s) performed at: [facility], [address] [place] [address] COST CONTROL SUPERVISOR: Alec Payan M.D. For any questions, please call customer service at FREQUENCY:MONTHLY Resulting Agency Comment Specimen source: Serum Ernie Pompa MD LAB BLOOD ORDERABLES Performing Organization Address City/State/ZIP Code Phon e Number [facility] documented in this encounter Visit Diagnoses Not on filedocumented in this encounter
--- OUTSIDE RECORDS SUMMARY | 2021-11-11 09:36 | XMS_ITS | Encounter Summary ---
:1945 Author Organization [facility] Address [address] [place] [address] Care Team Providers Name Role Phone Unavailable Primary Care Provider Unavailable Encounter Details Date Type Department Care Team Description 10/07/2020 Treatment [facility] f Ernie Guzmán MD [address] [place] [address] [place], [place] [phone] [phone] (Wo rk) Social History Tobacco Use Types Packs/Day Years Used Date Smoking Tobacco: Unknown Comments: Smoking History Info:Patient n ot screened Sex Assigned at Date Recorded Not on file documented as of this encounter Miscellaneous Notes Dialysis Note - Ernie Pompa MD - 10/07/2020 10:59 AM CDT Date: Oct 07, 2020 Patient Name: Shaun Ocampo : 1945 Chart #: [id number] Sex: M This patient was personally seen [...] AM ) BP (sit): 125/63 AP(-) / FORMULATOR: 232/178 Pulse: 70 Chairside data as of [...] Every 2 weeks During Dialysis 09/30/2020 09/29/2021 HEADLINE WRITER: Ernie Pompa MD LOCATION: [facility] [phone] SCHEDULE: M-W- 2nd Shift ACCESS: EDW: kg. [...] for ureteral ?tumor early next month in [place]. 06/10: Doing well overall, no new complaints, [...] Went to Urgent care -> ER in [place] yesterday,CT with R hydro but no obstructive [...] (07/22/20) Vascular Access Assessment: Type of access: [id number]/2019 Surgeon - Lary KUMARW Access working well [...]
--- OUTSIDE RECORDS SUMMARY | 2021-11-11 09:36 | XMS_ITS | Encounter Summary ---
:1945 Author Organization [facility] Address [address] [place] [address] Care Team Providers Name Role Phone Unavailable Primary Care Provider Unavailable Encounter Details Date Type Department Care Team Description 10/21/2020 Orders Only [facility] O f Ernie Guzmán MD [address] [place] [address] [place], [place] [phone] (Wo rk) Social History Tobacco Use [...] Provider LAB BLOOD ORDERABLES Performing Organization Address City/[facility]/ZIP Code Phon e Number KAMERON IMMUNO CHEMISTRY (10/21/2020) athologist Signature Hep B Surface Negative Negative [facility] Ag [facility] Specimen (Source) Anatomical Collection Method Collection Time Re ceived Time Location / / Volume Laterality 10/21/2020 10/22/2020 9:40 PM CDT Narrative [facility] - 10/23/2020 Unless otherwise specified, test(s) performed at: [facility], [address] [place], [place] [id number] GAMING ASSOCIATE: Alec Payan M.D. For any questions, please call customer service at FREQUENCY:MONTHLY Resulting Agency Comment Specimen source: Serum Ernie Pompa MD LAB BLOOD ORDERABLES Performing Organization Address [facility] Phon e Number [facility] S[facility]RA [facility] (ABNORMAL) Spectrae Chemistry (10/21/2020) athologist [facility] PTH 785 (H) 16 - 80 [facility] pg/mL [facility] Specimen (Source) Anatomical Collection Method Collection Time Re ceived Time Location / / Volume Laterality 10/21/2020 10/22/2020 8:05 PM CDT Narrative [facility] - 10/23/2020 Unless otherwise specified, test(s) performed at: [facility], [address] [place] [address] GAMING ASSOCIATE: Alec Payan M.D. For any questions, please call customer service at FREQUENCY:MONTHLY Resulting Agency Comment Specimen source: Plasma Ernie Pompa MD LAB BLOOD ORDERABLES Performing Organization Address City/[facility] Phon e Number [facility] HD KINETICS (10/21/2020) athologist Signature % Urea 76 65 - 80 % [facility] Reduction [facility] Specimen (Source) Anatomical Collection Method Collection Time Re ceived Time Location / / Volume Laterality 10/21/2020 10/22/2020 9:40 PM CDT Narrative [facility] - 10/23/2020 Unless otherwise specified, test(s) performed at: [facility], [address] [place] [address] GAMING ASSOCIATE: Alec Payan M.D. For any questions, please call customer service at FREQUENCY:MONTHLY Resulting Agency Comment Specimen source: Serum Ernie Pompa MD LAB BLOOD ORDERABLES Performing Organization Address City/State/ZIP Code Phon e Number [facility] (ABNORMAL) Spectrae Chemistry (10/21/2020) [facility] gist Method Time Signature BUN 45 [...] 10/23/2020 Unless otherwise specified, test(s) performed at: [facility], [address] [place] [address] GAMING ASSOCIATE: Alec Payan M.D. For any questions, [...] 10/23/2020 Unless otherwise specified, test(s) performed at: [facility], [address] [place] [address] GAMING ASSOCIATE: Alec Payan M.D. For any questions, [...] 10/22/2020 Unless otherwise specified, test(s) performed at: [facility], [address] [place] [address] GAMING ASSOCIATE: Alec Payan M.D. For any questions, please call customer service at FREQUENCY:MONTHLY Resulting Agency Comment Specimen source: Plasma Ernie Pompa MD LAB BLOOD ORDERABLES Performing Organization Address City/State/[facility] Code Phon e Number [facility] documented in this encounter Visit Diagnoses Not on filedocumented in this encounter
--- OUTSIDE RECORDS SUMMARY | 2021-11-11 09:36 | XMS_ITS | Encounter Summary ---
:1945 Author Organization [facility] Address [address] [place] [address] Care Team Providers Name Role Phone Unavailable Primary Care Provider Unavailable Encounter Details Date Type Department Care Team Description 12/16/2020 Orders Only [facility] O f Ernie Guzmán MD [address] [place] [address] [place], [place] [phone] (Wo rk) Social History Tobacco Use [...] 12/17/2020 Unless otherwise specified, test(s) performed at: [facility], [address] [place] [address] CUSTOMER FIELD REPRESENTATIVE: Alec Payan M.D. For any questions, please call customer service at FREQUENCY:OTHER Resulting Agency Comment Specimen source: Blood Ernie Pompa MD LAB BLOOD ORDERABLES Performing Organization Address City/State/ZIP Code Phon e Number [facility] documented in this encounter Visit Diagnoses Not on filedocumented in this encounter
--- OUTSIDE RECORDS SUMMARY | 2021-11-11 09:36 | XMS_ITS | Encounter Summary ---
:1945 Author Organization [facility] Address [address] [place] [address] Care Team Providers Name Role Phone Unavailable Primary Care Provider Unavailable Encounter Details Date Type Department Care Team Description 01/20/2021 Orders Only [facility] O f Ernie Guzmán MD [address] [place] [address] [place], [place] [phone] (Wo rk) Social History Tobacco Use [...] 01/22/2021 Unless otherwise specified, test(s) performed at: [facility], [address] [place] [address] DIRECTOR ONCOLOGY: Alec Payan M.D. For any questions, please [...] 01/22/2021 Unless otherwise specified, test(s) performed at: [facility], [address] [place] [address] DIRECTOR ONCOLOGY: Alec Payan M.D. For any questions, please call customer service at FREQUENCY:MONTHLY Resulting Agency Comment Specimen source: Serum Ernie Pompa MD LAB BLOOD ORDERABLES Performing Organization Address City/[facility] Phon e Number [facility] IMMUNO CHEMISTRY (01/20/2021) P athologist Signature Hep B Surface Negative Negative [facility] Ag [facility] Specimen (Source) Anatomical Collection Method Collection Time Re ceived Time Location / / Volume Laterality 01/20/2021 01/21/2021 8:41 PM CDT Narrative [facility] - 01/21/2021 Unless otherwise specified, test(s) performed at: [facility], [address] [place] [address] DIRECTOR ONCOLOGY: Alec Payan M.D. For any questions, please call customer service at FREQUENCY:MONTHLY Resulting Agency Comment Specimen source: Serum Ernie Pompa MD LAB BLOOD ORDERABLES Performing Organization Address City/[facility] Phon e Number [facility] POST CHEMISTRY (01/20/2021) P athologist Signature BUN Post 11 6 - 19 APS [facility]RA Dialysis mg/dL [facility] Specimen (Source) Anatomical Collection Method Collection Time Re ceived Time Location / / Volume Laterality 01/20/2021 01/21/2021 10:5 1 AM CDT Narrative [facility] - 01/21/2021 Unless otherwise specified, test(s) performed at: [facility], [address] [place] [address] DIRECTOR ONCOLOGY: Alec Payan M.D. For any questions, please [...] 01/21/2021 Unless otherwise specified, test(s) performed at: [facility], [address] [place] [address] DIRECTOR ONCOLOGY: Alec Payan M.D. For any questions, please [...] 01/21/2021 Unless otherwise specified, test(s) performed at: [facility], [address] [place] [address] DIRECTOR ONCOLOGY: Alec Payan M.D. For any questions, please call customer service at FREQUENCY:MONTHLY Resulting Agency Comment Specimen source: Plasma Ernie Pompa MD LAB BLOOD ORDERABLES Performing Organization Address City/State/ZIP Code Phon e Number [facility] documented in this encounter Visit Diagnoses Not on filedocumented in this encounter
--- OUTSIDE RECORDS SUMMARY | 2021-11-11 09:36 | XMS_ITS | Encounter Summary ---
:1945 Author Organization [facility] Address [address] [place] [address] Care Team Providers Name Role Phone Unavailable Primary Care Provider Unavailable Encounter Details Date Type Department Care Team Description 01/20/2021 Treatment [facility] O Ernie Gómez MD [address] [place] [address] [place], [place] [phone] (Wo rk) Social History Tobacco Use Types Packs/Day Years Used Date Smoking Tobacco: Unknown Comments: Smoking History Info:Patient n ot screened Sex Assigned at Date Recorded Not on file documented as of this encounter Miscellaneous Notes Dialysis Note - Ernie Pompa MD - 01/20/2021 9:46 AM CDT Date: Jan 20, 2021 Patient Name: Shaun Ocampo : 1945 Chart #: [id number] Sex: M This patient was personally seen [...] 2.0 mcg ORAL Every Treatment 12/30/2020 12/29/2021 GEOMAGNETIST: Ernie Pompa MD LOCATION: [place] [phone] SCHEDULE: -- 2nd Shift EDW: kg. DIALYZER: [...] for ureteral ?tumor early next month in [place]. 06/10: Doing well overall, no new complaints, [...] to Urgent care -> ER in [place] yesterday,CT with R hydro but no obstructive [...] He had infiltration last week, dialyzed at [facility] on Sat and went well, [...] prescription. Vascular Access Assessment Type of access: [id number]/2019 Surgeon Annita KUMARW Access working well Anemia [...] at goal. Intact PTH is at goal. Therapy Site Coordinator will adjust binders and vitamin D [...]
--- OUTSIDE RECORDS SUMMARY | 2021-11-11 09:36 | XMS_ITS | Encounter Summary ---
:1945 Author Organization [facility] Address [address] [place] [address] Care Team Providers Name Role Phone Unavailable Primary Care Provider Unavailable Encounter Details Date Type Department Care Team Description 12/23/2020 [facility] O f Ernie Guzmán MD [address] [place] [address] [place], [place] [phone] (Wo rk) Social History Tobacco Use [...] Provider LAB BLOOD ORDERABLES Performing Organization Address City/[facility]/ZIP Code Phon e Number [facility] (12/23/2020) P athologist Signature % Urea 75 65 - 80 % APS SPECTRA Reduction [facility] Specimen (Source) Anatomical Collection Method Collection Time Re ceived Time Location / / Volume Laterality 12/23/2020 12/24/2020 8:52 PM CDT Narrative APS SPECTRA [facility] - 12/25/2020 Unless otherwise specified, test(s) performed at: [facility], [address] [place], [place] [id number] EMERGENCY DETAIL DRIVER: Alec Payan M.D. For any questions, please call customer service at FREQUENCY:MONTHLY Resulting Agency Comment Specimen source: Serum Ernie Pompa MD LAB BLOOD ORDERABLES Performing Organization Address [facility] Phon e Number APS SPECTRA [facility] IMMUNO CHEMISTRY (12/23/2020) P athologist Signature Hep B Surface Negative Negative APS SPECTRA Ag [facility] Specimen (Source) Anatomical Collection Method Collection Time Re ceived Time Location / / Volume Laterality 12/23/2020 12/24/2020 8:51 PM CDT Narrative APS SPECTRA [facility] - 12/25/2020 Unless otherwise specified, test(s) performed at: [facility], [address] [place] [address] EMERGENCY DETAIL DRIVER: Alec Payan M.D. For any questions, please call customer service at FREQUENCY:MONTHLY Resulting Agency Comment Specimen source: Serum Ernie Pompa MD LAB BLOOD ORDERABLES Performing Organization Address City/[facility] Code Phon e Number APS [...] 12/25/2020 Unless otherwise specified, test(s) performed at: [facility], [address] [place] [address] EMERGENCY DETAIL DRIVER: Alec Payan M.D. For any questions, [...] 12/25/2020 Unless otherwise specified, test(s) performed at: [facility], [address] [place] [address] EMERGENCY DETAIL DRIVER: Alec Payan M.D. For any questions, please call customer service at FREQUENCY:MONTHLY Resulting Agency Comment Specimen source: Plasma Ernie Pompa MD LAB BLOOD ORDERABLES Performing Organization Address City/[facility] Phon e Number APS SPECTRA [facility] POST CHEMISTRY (12/23/2020) P athologist Signature BUN Post 11 6 - 19 APS SPECTRA Dialysis mg/dL [facility] Specimen (Source) Anatomical Collection Method Collection Time Re ceived Time Location / / Volume Laterality 12/23/2020 12/24/2020 3:54 PM CDT Narrative APS SPECTRA [facility] - 12/24/2020 Unless otherwise specified, test(s) performed at: [facility], [address] [place] [address] EMERGENCY DETAIL DRIVER: Alec Payan M.D. For any questions, please call customer service at FREQUENCY:MONTHLY Resulting Agency Comment Specimen source: Plasma Ernie Pompa MD LAB BLOOD ORDERABLES Performing Organization Address City/[facility]/ZIP Code Phon e Number APS SPECTRA [...] 12/24/2020 Unless otherwise specified, test(s) performed at: [facility], [address] [place] [address] EMERGENCY DETAIL DRIVER: Alec Payan M.D. For any questions, please call customer service at FREQUENCY:MONTHLY Resulting Agency Comment Specimen source: Blood Ernie Pompa MD LAB BLOOD ORDERABLES Performing Organization Address City/State/ZIP Code Phon e Number APS SPECTRA [facility] documented in this encounter Visit Diagnoses Not on filedocumented in this encounter
--- OUTSIDE RECORDS SUMMARY | 2021-11-11 09:36 | XMS_ITS | Encounter Summary ---
:1945 Author Organization [facility] Address [address] [place] [address] Care Team Providers Name Role Phone Unavailable Primary Care Provider Unavailable Encounter Details Date Type Department Care Team Description 12/09/2020 Treatment [facility] f Ernie Guzmán MD [address] [place] [address] [place], [place] [address] [phone] (Wo rk) Social History Tobacco Use Types Packs/Day Years Used Date Smoking Tobacco: Unknown Comments: Smoking History Info:Patient n ot screened Sex Assigned at Date Recorded Not on file documented as of this encounter Miscellaneous Notes Dialysis Note - Ernie Pompa MD - 12/09/2020 10:05 AM CDT Date: Dec 09, 2020 Patient Name: Shaun Ocampo : 1945 Chart #: [id number] Sex: M This patient was personally seen [...] AM ) BP (sit): 134/63 AP(-) / CYBER DEFENSE FORENSICS ANALYST: 227/186 Pulse: 69 Chairside data as of [...] 09/18/2020 Access Flow 1432 > 2000 1138 FISCAL OFFICER: Ernie Pompa MD LOCATION: [place] [phone] SCHEDULE: -- 2nd Shift ACCESS: EDW: kg. [...] for ureteral ?tumor early next month in [place]. 06/10: Doing well overall, no new complaints, [...] Went to Urgent care -> ER in [place] yesterday,CT with R hydro but no obstructive [...] (09/23/20) Vascular Access Assessment: Type of access: [id number]/[email or web address] Surgeon - Lary GARDNER Access working well [...]
--- OUTSIDE RECORDS SUMMARY | 2021-11-11 09:36 | XMS_ITS | Encounter Summary ---
:1945 Author Organization [facility] Address [address] [place] [address] Care Team Providers Name Role Phone Unavailable Primary Care Provider Unavailable Encounter Details Date Type Department Care Team Description 12/02/2020 [facility] f Ernie Guzmán MD [address] [place] [address] [place], [place] [phone] (Wo rk) Social History Tobacco Use [...] 12/03/2020 Unless otherwise specified, test(s) performed at: [facility], [address] [place] [address] DIRECTOR OF INDIVIDUAL GIVING: Alec Payan M.D. For any questions, please call customer service at FREQUENCY:OTHER Resulting Agency Comment Specimen source: Blood Ernie Pompa MD LAB BLOOD ORDERABLES Performing Organization Address City/State/ZIP Code Phon e Number APS SPECTRA [facility] documented in this encounter Visit Diagnoses Not on filedocumented in this encounter
--- OUTSIDE RECORDS SUMMARY | 2021-11-11 09:36 | XMS_ITS | Encounter Summary ---
:1945 Author Organization [facility] Address [address] [place] [address] Care Team Providers Name Role Phone Unavailable Primary Care Provider Unavailable Encounter Details Date Type Department Care Team Description 09/25/2020 [facility] O f Ernie Guzmán MD [address] [place] [address] [place], [place] [phone] (Wo rk) Social History Tobacco Use [...] 09/26/2020 Unless otherwise specified, test(s) performed at: [facility], [address] [place] [address] FLOORS BUFFER: Alec Payan M.D. For any questions, please call customer service at FREQUENCY:OTHER Resulting Agency Comment Specimen source: Serum Ernie Pompa MD LAB BLOOD ORDERABLES Performing Organization Address City/State/ZIP Code Phon e Number APS SPECTRA [facility] documented in this encounter Visit Diagnoses Not on filedocumented in this encounter
--- OUTSIDE RECORDS SUMMARY | 2021-11-11 09:36 | XMS_ITS | Encounter Summary ---
:1945 Author Organization [facility] Address [address] [place] [address] Care Team Providers Name Role Phone Unavailable Primary Care Provider Unavailable Encounter Details Date Type Department Care Team Description 02/10/2021 Orders [facility] O f Ernie Guzmán MD [address] [place] [address] [place], [place] [phone] (Wo rk) Social History Tobacco Use [...] / Volume Laterality 02/10/2021 02/12/2021 2:38 PM CHAIN MAKER Narrative APS SPECTRA [facility] - 02/12/2021 Unless otherwise specified, test(s) performed at: [facility], [address] [place] [address] PERSONAL LINES INSURANCE AGENT: Alec Payan M.D. For any questions, please call customer service at FREQUENCY:OTHER Resulting Agency Comment Specimen source: Blood Ernie Pompa MD LAB BLOOD ORDERABLES Performing Organization Address City/State/ZIP Code Phon e Number APS SPECTRA [facility] documented in this encounter Visit Diagnoses Not on filedocumented in this encounter
--- OUTSIDE RECORDS SUMMARY | 2021-11-11 09:36 | XMS_ITS | Encounter Summary ---
:1945 Author Organization [facility] Address [address] [place] [address] Care Team Providers Name Role Phone Unavailable Primary Care Provider Unavailable Encounter Details Date Type Department Care Team Description 11/25/2020 Orders [facility] O f Ernie Guzmán MD [address] [place] [address] [place], [place] [phone] (Wo rk) Social History Tobacco Use [...] 11/26/2020 Unless otherwise specified, test(s) performed at: [facility], [address] [place] [address] SENIOR HARDWARE ENGINEER: Alec Payan M.D. For any questions, please call customer service at FREQUENCY:OTHER Resulting Agency Comment Specimen source: Blood Ernie Pompa MD LAB BLOOD ORDERABLES Performing Organization Address City/State/ZIP Code Phon e Number APS SPECTRA [facility] documented in this encounter Visit Diagnoses Not on filedocumented in this encounter
--- OUTSIDE RECORDS SUMMARY | 2021-11-11 09:36 | XMS_ITS | Encounter Summary ---
:1945 Author Organization [facility] Address [address] [place] [address] Care Team Providers Name Role Phone Unavailable Primary Care Provider Unavailable Encounter Details Date Type Department Care Team Description 10/07/2020 [facility] O f Ernie Guzmán MD [address] [place] [address] [place], [place] [phone] (Wo rk) Social History Tobacco Use [...] 10/09/2020 Unless otherwise specified, test(s) performed at: [facility], [address] [place] [address] SANITATION LEAD: Alec Payan M.D. For any questions, please call customer service at FREQUENCY:OTHER Resulting Agency Comment Specimen source: Blood Ernie Pompa MD LAB BLOOD ORDERABLES Performing Organization Address City/State/ZIP Code Phon e Number APS SPECTRA [facility] documented in this encounter Visit Diagnoses Not on filedocumented in this encounter
--- OUTSIDE RECORDS SUMMARY | 2021-11-11 09:36 | XMS_ITS | Encounter Summary ---
:1945 Author Organization [facility] Address [address] [place] [address] Care Team Providers Name Role Phone Unavailable Primary Care Provider Unavailable Encounter Details Date Type Department Care Team Description 01/13/2021 Orders [facility] O f Ernie Guzmán MD [address] [place] [address] [place], [place] [phone] (Wo rk) Social History Tobacco Use [...] 01/14/2021 Unless otherwise specified, test(s) performed at: [facility], [address] [place] [address] OIL HEATER INSTALLER: Alec Payan M.D. For any questions, please call customer service at FREQUENCY:OTHER Resulting Agency Comment Specimen source: Blood Ernie Pompa MD LAB BLOOD ORDERABLES Performing Organization Address City/State/ZIP Code Phon e Number APS SPECTRA [facility] documented in this encounter Visit Diagnoses Not on filedocumented in this encounter
--- OUTSIDE RECORDS SUMMARY | 2021-11-11 09:36 | XMS_ITS | Encounter Summary ---
:1945 Author Organization [facility] Address [address] [place] [address] Care Team Providers Name Role Phone Unavailable Primary Care Provider Unavailable Encounter Details Date Type Department Care Team Description 09/09/2020 Orders [facility] O f Ernie Guzmán MD [address] [place] [address] [place], [place] [phone] (Wo rk) Social History Tobacco Use [...] 09/11/2020 Unless otherwise specified, test(s) performed at: [facility], [address] [place] [address] FILM READER: Alec Payan M.D. For any questions, please call customer service at FREQUENCY:OTHER Resulting Agency Comment Specimen source: Blood Ernie Pompa MD LAB BLOOD ORDERABLES Performing Organization Address City/State/ZIP Code Phon e Number APS SPECTRA [facility] documented in this encounter Visit Diagnoses Not on filedocumented in this encounter
--- OUTSIDE RECORDS SUMMARY | 2021-11-11 09:36 | XMS_ITS | Encounter Summary ---
:1945 Author Organization [facility] Address [address] [place] [address] Care Team Providers Name Role Phone Unavailable Primary Care Provider Unavailable Encounter Details Date Type Department Care Team Description 01/13/2021 Treatment [facility] O Ernie Gómez MD [address] [place] [address] [place], [place] [address] [phone] (Wo rk) Social History Tobacco Use Types Packs/Day Years Used Date Smoking Tobacco: Unknown Comments: Smoking History Info:Patient n ot screened Sex Assigned at Date Recorded Not on file documented as of this encounter Miscellaneous Notes Dialysis Note - Ernie Pompa MD - 01/13/2021 11:13 AM CDT Date: Jan 13, 2021 Patient Name: Shaun Ocampo : 1945 Chart #: [id number] Sex: M This patient was personally seen [...] AM ) BP (sit): 122/55 AP(-) / MEAT LOINER: n/a Pulse: 70 Chairside data as of [...] 2.0 mcg ORAL Every Treatment 12/30/2020 12/29/2021 CITY MAINTENANCE MANAGER: Ernie Pompa MD LOCATION: [facility] [phone] SCHEDULE: -- 2nd Shift ACCESS: EDW: kg. [...] for ureteral ?tumor early next month in [place]. 06/10: Doing well overall, no new complaints, [...] Went to Urgent care -> ER in [place] yesterday,CT with R hydro but no obstructive [...] He had infiltration last week, dialyzed at [facility] on Sat and went well, [...] (10/21/20) Vascular Access Assessment: Type of access: [id number]/[email or web address] Surgeon - Lary GARDNER Access working well [...]
--- OUTSIDE RECORDS SUMMARY | 2021-11-11 09:37 | XMS_ITS | Encounter Summary ---
:1945 Author Organization [facility] Address [address] [place] [address] Care Team Providers Name Role Phone Unavailable Primary Care Provider Unavailable Encounter Details Date Type Department Care Team Description 08/26/2020 Orders [facility] O f Ernie Guzmán MD [address] [place] [address] [place], [place] [phone] (Wo rk) Social History Tobacco Use [...] 08/27/2020 Unless otherwise specified, test(s) performed at: [facility], [address] [place] [address] INFORMATION SECURITY MANAGER: Alec Payan M.D. For any questions, please call customer service at FREQUENCY:OTHER Resulting Agency Comment Specimen source: Blood Ernie Pompa MD LAB BLOOD ORDERABLES Performing Organization Address City/State/ZIP Code Phon e Number APS SPECTRA [facility] documented in this encounter Visit Diagnoses Not on filedocumented in this encounter
--- OUTSIDE RECORDS SUMMARY | 2021-11-11 09:37 | XMS_ITS | Encounter Summary ---
:1945 Author Organization [facility] Address [address] [place] [address] Care Team Providers Name Role Phone Unavailable Primary Care Provider Unavailable Encounter Details Date Type Department Care Team Description 09/02/2020 Orders [facility] O f Ernie Guzmán MD [address] [place] [address] [place], [place] [phone] (Wo rk) Social History Tobacco Use [...] 09/03/2020 Unless otherwise specified, test(s) performed at: [facility], [address] [place] [address] INSPECTOR BALANCE BRIDGE: Alec Payan M.D. For any questions, please call customer service at FREQUENCY:OTHER Resulting Agency Comment Specimen source: Blood Ernie Pompa MD LAB BLOOD ORDERABLES Performing Organization Address City/State/ZIP Code Phon e Number APS SPECTRA [facility] documented in this encounter Visit Diagnoses Not on filedocumented in this encounter
--- OUTSIDE RECORDS SUMMARY | 2021-11-11 09:37 | XMS_ITS | Encounter Summary ---
:1945 Author Organization [facility] Address [address] [place] [address] Care Team Providers Name Role Phone Unavailable Primary Care Provider Unavailable Encounter Details Date Type Department Care Team Description 08/12/2020 Orders [facility] O f Ernie Guzmán MD [address] [place] [address] [place], [place] [phone] (Wo rk) Social History Tobacco Use [...] 08/13/2020 Unless otherwise specified, test(s) performed at: [facility], [address] [place] [address] PHARMACY GRAD INTERN: Alec Payan M.D. For any questions, please call customer service at FREQUENCY:OTHER Resulting Agency Comment Specimen source: Blood Ernie Pompa MD LAB BLOOD ORDERABLES Performing Organization Address City/State/ZIP Code Phon e Number APS SPECTRA [facility] documented in this encounter Visit Diagnoses Not on filedocumented in this encounter
--- OUTSIDE RECORDS SUMMARY | 2021-11-11 09:37 | XMS_ITS | Encounter Summary ---
:1945 Author Organization [facility] Address [address] [place] [address] Care Team Providers Name Role Phone Unavailable Primary Care Provider Unavailable Encounter Details Date Type Department Care Team Description 09/09/2020 Treatment [facility] f Ernie Guzmán MD [address] [place] [address] [place], [place] [address] [phone] (Wo rk) Social History Tobacco Use Types Packs/Day Years Used Date Smoking Tobacco: Unknown Comments: Smoking History Info:Patient n ot screened Sex Assigned at Date Recorded Not on file documented as of this encounter Miscellaneous Notes Dialysis Note - Ernie Pompa MD - 09/09/2020 10:22 AM CDT Date: Sep 09, 2020 Patient Name: Shaun Ocampo : 1945 Chart #: [id number] Sex: M This patient was personally seen [...] AM ) BP (sit): 116/58 AP(-) / SOLE SCRAPER: 242/201 Pulse: 71 Chairside data as of [...] Access Flow [id number] > 2000 AIR CONTROL/ANTI AIR WARFARE OFFICER: Ernie Pompa MD LOCATION: [place] [phone] SCHEDULE: -- 2nd Shift ACCESS: EDW: kg. [...] for ureteral ?tumor early next month in [place]. 06/10: Doing well overall, no new complaints, [...] Went to Urgent care -> ER in [place] yesterday,CT with R hydro but no obstructive [...] He had infiltration last week, dialyzed at [facility] on Sat and went well, access [...] (06/24/20) Vascular Access Assessment: Type of access: [email or web address] Surgeon - Lary GARDNER Access working well [...]
--- OUTSIDE RECORDS SUMMARY | 2021-11-11 09:37 | XMS_ITS | Encounter Summary ---
:1945 Author Organization [facility] Address [address] [place] [address] Care Team Providers Name Role Phone Unavailable Primary Care Provider Unavailable Encounter Details Date Type Department Care Team Description 07/22/2020 Orders Only [facility] O f Ernie Guzmán MD [address] [place] [address] [place], [place] [phone] (Wo rk) Social History Tobacco Use [...] MD LAB BLOOD ORDERABLES Performing Organization Address City/[facility]/ZIP Code Phon e Number APS SPECTRA [facility] POST CHEMISTRY (07/22/2020) athologist Signature BUN Post 12 6 - 19 APS SPECTRA Dialysis mg/dL [facility] Specimen (Source) Anatomical Collection Method Collection Time Re ceived Time Location / / Volume Laterality 07/22/2020 07/23/2020 7:39 PM CDT Narrative APS SPECTRA [facility] - 07/24/2020 Unless otherwise specified, test(s) performed at: [facility], [address] [place] [address] PURSE SEINING HAND: Alec Payan M.D. For any questions, please call customer service at FREQUENCY:MONTHLY Resulting Agency Comment Specimen source: Plasma Ernie Pompa MD LAB BLOOD ORDERABLES Performing Organization Address City/[facility] Phon e Number APS SPECTRA [facility] IMMUNO CHEMISTRY (07/22/2020) P athologist Signature Hep B Surface Negative Negative APS SPECTRA Ag [facility] Specimen (Source) Anatomical Collection Method Collection Time Re ceived Time Location / / Volume Laterality 07/22/2020 07/23/2020 4:57 PM CDT Narrative APS SPECTRA [facility] - 07/23/2020 Unless otherwise specified, test(s) performed at: [facility], [address] [place] [address] PURSE SEINING HAND: Alec Payan M.D. For any questions, please call customer service at FREQUENCY:MONTHLY Resulting Agency Comment Specimen source: Serum Ernie Pompa MD LAB BLOOD ORDERABLES Performing Organization Address City/State/ZIP Code Phon e Number APS SPECTRA [facility] (ABNORMAL) Spectrae Chemistry (07/22/2020) [facility] Method Time Signature BUN 58 (H) [...] 07/23/2020 Unless otherwise specified, test(s) performed at: [facility], [address] [place], [place] [address] PURSE SEINING HAND: Alec Payan M.D. For any questions, please call customer service at FREQUENCY:MONTHLY Resulting Agency Comment Specimen source: Serum Ernie Pompa MD LAB BLOOD ORDERABLES Performing Organization Address City/[facility] Phon e Number APS SPECTRA [facility] (ABNORMAL) Spectrae Chemistry (07/22/2020) P athologist Signature PTH 1,020 (H) 16 - 80 APS SPECTRA pg/mL [facility] Specimen (Source) Anatomical Collection Method Collection Time Re ceived Time Location / / Volume Laterality 07/22/2020 07/23/2020 3:10 PM CDT Resulting Agency Comment Specimen source: Plasma Ernie Pompa MD LAB BLOOD ORDERABLES Performing Organization Address City/[facility] Code Phon [...] 07/23/2020 Unless otherwise specified, test(s) performed at: [facility], [address] [place] [address] PURSE SEINING HAND: Aelc Payan M.D. For any questions, please call customer service at FREQUENCY:MONTHLY Resulting Agency Comment Specimen source: Blood Ernie Pompa MD LAB BLOOD ORDERABLES Performing Organization Address City/State/ZIP Code Phon e Number APS SPECTRA [facility] documented in this encounter Visit Diagnoses Not on filedocumented in this encounter
--- OUTSIDE RECORDS SUMMARY | 2021-11-11 09:37 | XMS_ITS | Encounter Summary ---
:1945 Author Organization [facility] Address [address] [place] [address] Care Team Providers Name Role Phone Unavailable Primary Care Provider Unavailable Encounter Details Date Type Department Care Team Description 06/17/2020 Orders [facility] f Ernie Guzmán MD [address] [place] [address] [place], [place] [phone] (Wo rk) Social History Tobacco Use Types Packs/Day Years Used Date Smoking Tobacco: Unknown Comments: Smoking History Info:Patient n ot screened Sex Assigned at Date Recorded Not on file documented as of this encounter Plan of Treatment Not on filedocumented as of this encounter Procedures Procedure Name Priority Date/Time Associated Diagnosis Comme nts HEMATOLOGY Routine 06/17/2020 Results for thi s procedure are in the resu lts section. documented in this encounter Results (ABNORMAL) HEMATOLOGY (06/17/2020) Analysis Performed At Patho logist Time Signature Hemoglobin 9.9 (L) 14.0 - [facility] 18.0 g/dL [facility] Hemoglobin x 3 29.7 (L) 42.0 - [facility] 54.0 % [facility] Specimen (Source) Anatomical Collection Method Collection Time Re ceived Time Location / / Volume Laterality 06/17/2020 06/18/2020 11:0 9 AM CDT Narrative [facility] - 06/18/2020 Unless otherwise specified, test(s) performed at: [facility] [address] [place] [address] MACHINE STRIPPER: Alec Payan M.D. For any questions, please call customer service at FREQUENCY:OTHER Resulting Agency Comment Specimen source: Blood Ernie Pompa MD LAB BLOOD ORDERABLES Performing Organization Address City/State/ZIP Code Phon e Number [facility] documented in this encounter Visit Diagnoses Not on filedocumented in this encounter
--- OUTSIDE RECORDS SUMMARY | 2021-11-11 09:37 | XMS_ITS | Encounter Summary ---
:1945 Author Organization [facility] Address [address] [place] [address] Care Team Providers Name Role Phone Unavailable Primary Care Provider Unavailable Encounter Details Date Type Department Care Team Description 2020 [facility] O f Ernie Guzmán MD [phone] [place] [address] [place], [place] [phone] (Wo rk) Social History Tobacco Use [...] 08/06/2020 Unless otherwise specified, test(s) performed at: [facility], [address] [place] [address] TIRE MANAGER: Alec Payan M.D. For any questions, please call customer service at FREQUENCY:OTHER Resulting Agency Comment Specimen source: Blood Ernie Pompa MD LAB BLOOD ORDERABLES Performing Organization Address City/State/ZIP Code Phon e Number [facility] documented in this encounter Visit Diagnoses Not on filedocumented in this encounter
--- OUTSIDE RECORDS SUMMARY | 2021-11-11 09:37 | XMS_ITS | Encounter Summary ---
:1945 Author Organization [facility] Address [address] [place] [address] Care Team Providers Name Role Phone Unavailable Primary Care Provider Unavailable Encounter Details Date Type Department Care Team Description 07/08/2020 Treatment [facility] O Ernie Gómez MD [address] [place] [address] [place], [place] [address] [phone] (Wo rk) Social History Tobacco Use Types Packs/Day Years Used Date Smoking Tobacco: Unknown Comments: Smoking History Info:Patient n ot screened Sex Assigned at Date Recorded Not on file documented as of this encounter Miscellaneous Notes Dialysis Note - Ernie Pompa MD - 07/08/2020 9:33 AM CDT Date: Jul 08, 2020 Patient Name: Shaun Ocampo : 1945 Chart #: [id number] Sex: M This patient was personally seen [...] Flow > 1999 > 1999 > 1999 MARINE PLUMBER: Ernie Pompa MD LOCATION: [place] [phone] SCHEDULE: 2nd Shift ACCESS: EDW: kg. DIALYZER: [...] for ureteral ?tumor early next month in [place]. 06/10: Doing well overall, no new complaints, [...] Went to Urgent care -> ER in [place] yesterday,CT with R hydro but no obstructive [...] He had infiltration last week, dialyzed at [facility] on Sat and went well, access [...] (04/22/20) Vascular Access Assessment: Type of access: [id number]/2019 Surgeon - Lary GARDNER Access working well [...]
--- OUTSIDE RECORDS SUMMARY | 2021-11-11 09:37 | XMS_ITS | Encounter Summary ---
:1945 Author Organization [facility] Address [address] [place] [address] Care Team Providers Name Role Phone Unavailable Primary Care Provider Unavailable Encounter Details Date Type Department Care Team Description 07/29/2020 [facility] f Ernie Guzmán MD [phone] [place] [address] [place], [place] [phone] (Wo rk) Social History Tobacco Use [...] 07/30/2020 Unless otherwise specified, test(s) performed at: [facility], [address] [place] [address] FLIGHT OPERATION COORDINATOR: Alec Payan M.D. For any questions, please call customer service at FREQUENCY:OTHER Resulting Agency Comment Specimen source: Blood Ernie Pompa MD LAB BLOOD ORDERABLES Performing Organization Address City/State/ZIP Code Phon e Number [facility] documented in this encounter Visit Diagnoses Not on filedocumented in this encounter
--- OUTSIDE RECORDS SUMMARY | 2021-11-11 09:37 | XMS_ITS | Encounter Summary ---
:1945 Author Organization [facility] Address [address] [place] [address] Care Team Providers Name Role Phone Unavailable Primary Care Provider Unavailable Encounter Details Date Type Department Care Team Description 07/08/2020 [facility] f Ernie Guzmán MD [phone] [place] [address] [place], [place] [phone] (Wo rk) Social History Tobacco Use [...] 07/09/2020 Unless otherwise specified, test(s) performed at: [facility], [address] [place] [address] PROFESSOR OF EXERCISE SCIENCE: Alec Payan M.D. For any questions, please call customer service at FREQUENCY:OTHER Resulting Agency Comment Specimen source: Blood Ernie Pompa MD LAB BLOOD ORDERABLES Performing Organization Address City/State/ZIP Code Phon e Number [facility] documented in this encounter Visit Diagnoses Not on filedocumented in this encounter
--- OUTSIDE RECORDS SUMMARY | 2021-11-11 09:37 | XMS_ITS | Encounter Summary ---
:1945 Author Organization [facility] Address [address] [place] [address] Care Team Providers Name Role Phone Unavailable Primary Care Provider Unavailable Encounter Details Date Type Department Care Team Description 2020 Treatment [facility] f Ernie Guzmán MD [address] [place] [address] [place], [place] [phone] (Wo rk) Social History Tobacco Use Types Packs/Day Years Used Date Smoking Tobacco: Unknown Comments: Smoking History Info:Patient n ot screened Sex Assigned at Date Recorded Not on file documented as of this encounter Miscellaneous Notes Dialysis Note - Ernie Pompa MD - 2020 10:59 AM CDT Date: 2020 Patient Name: Shaun Ocampo : 1945 Chart #: [id number] Sex: M This patient was personally seen for a basic visit as part of routine weekly dialysis care. A reviewof the dialysis treatment, blood pressure, estimated dry weight and recent lab values was made. These were discussed with the patient and staff as necessary. RECORD TABULATING CLERK: Ernie Pompa MD LOCATION: [phone] SCHEDULE: M-W-F 2nd Shift ACCESS: EDW: kg. [...] for ureteral ?tumor early next month in [place]. 06/10: Doing well overall, no new complaints, [...] Went to Urgent care -> ER in [place] yesterday,CT with R hydro but no obstructive [...] (05/20/20) Vascular Access Assessment: Type of access: [id number]/2019 Surgeon - Lary GARDNER Access working well Impression and Plan No changes in prescription Discussed fluid gains, possible need for increased time on HD but he really wants to avoid more [id number]. Discussed possible need for extra treatments occasionally [...]
--- OUTSIDE RECORDS SUMMARY | 2021-11-11 09:37 | XMS_ITS | Encounter Summary ---
:1945 Author Organization [facility] Address [address] [place] [address] Care Team Providers Name Role Phone Unavailable Primary Care Provider Unavailable Encounter Details Date Type Department Care Team Description 07/01/2020 [facility] f Ernie Guzmán MD [phone] [place] [address] [place], [place] [phone] (Wo rk) Social History Tobacco Use [...] 07/03/2020 Unless otherwise specified, test(s) performed at: [facility], [address] [place] [address] CW OPERATOR: Alec Payan M.D. For any questions, please call customer service at FREQUENCY:OTHER Resulting Agency Comment Specimen source: Blood Ernie Pompa MD LAB BLOOD ORDERABLES Performing Organization Address City/State/ZIP Code Phon e Number [facility] documented in this encounter Visit Diagnoses Not on filedocumented in this encounter
--- OUTSIDE RECORDS SUMMARY | 2021-11-11 09:37 | XMS_ITS | Encounter Summary ---
:1945 Author Organization [facility] Address [address] [place] [address] Care Team Providers Name Role Phone Unavailable Primary Care Provider Unavailable Encounter Details Date Type Department Care Team Description 07/22/2020 Treatment [facility] f Ernie Guzmán MD [address] [place] [address] [place], [place] [address] [phone] (Wo rk) Social History Tobacco Use Types Packs/Day Years Used Date Smoking Tobacco: Unknown Comments: Smoking History Info:Patient n ot screened Sex Assigned at Date Recorded Not on file documented as of this encounter Miscellaneous Notes Dialysis Note - Ernie Pompa MD - 07/22/2020 10:25 AM CDT Date: July 22, 2020 Patient Name: Shaun Ocampo : 1945 Chart #: [id number] Sex: M This patient was personally seen [...] AM ) BP (sit): 139/55 AP(-) / LANGUAGE ARTS TEACHER: 262/224 Pulse: 69 Chairside data as of [...] Every 4 weeks During Dialysis 07/08/2020 07/07/2021 TRUCK CHAUFFEUR: Ernie Pompa MD LOCATION: [phone] SCHEDULE: M-W-F 2nd Shift EDW: kg. DIALYZER: [...] for ureteral ?tumor early next month in [place]. 06/10: Doing well overall, no new complaints, [...] Went to Urgent care -> ER in [place] yesterday,CT with R hydro but no obstructive [...] He had infiltration last week, dialyzed at [facility] on Sat and went well, access [...] prescription. Vascular Access Assessment Type of access: [id number]/2019 Surgeon - Lary KUMARW Access working well [...] at goal. Intact PTH is above goal. Converting Operator will adjust binders and vitamin D [...]
--- OUTSIDE RECORDS SUMMARY | 2021-11-11 09:37 | XMS_ITS | Encounter Summary ---
:1945 Author Organization [facility] Address [address] [place] [address] Care Team Providers Name Role Phone Unavailable Primary Care Provider Unavailable Encounter Details Date Type Department Care Team Description 08/19/2020 Treatment [facility] f Ernie Guzmán MD [address] [place] [address] [place], [place] [address] [phone] (Wo rk) Social History Tobacco Use Types Packs/Day Years Used Date Smoking Tobacco: Unknown Comments: Smoking History Info:Patient n ot screened Sex Assigned at Date Recorded Not on file documented as of this encounter Miscellaneous Notes Dialysis Note - Ernie Pompa MD - 08/19/2020 12:37 PM CDT Date: Aug 19, 2020 Patient Name: Shaun Ocampo : 1945 Chart #: [id number] Sex: M This patient was personally seen [...] PM ) BP (sit): 110/40 AP(-) / DRY LUMBER GRADER: 250/194 Pulse: 67 Chairside data as of [...] Every 4 weeks During Dialysis 08/19/2020 08/18/2021 ADVERTISING MATERIAL DISTRIBUTOR: Ernie Pompa MD LOCATION: [phone] SCHEDULE: M-W- 2nd Shift EDW: kg. DIALYZER: [...] for ureteral ?tumor early next month in [place]. 06/10: Doing well overall, no new complaints, [...] Went to Urgent care -> ER in [place] yesterday,CT with R hydro but no obstructive [...] prescription. Vascular Access Assessment Type of access: Tevyntm40/2019 Surgeon - Lary GARDNER Access working well [...] above goal. Intact PTH is above goal. Shake Table Operator will adjust binders and vitamin D [...]
--- OUTSIDE RECORDS SUMMARY | 2021-11-11 09:37 | XMS_ITS | Encounter Summary ---
:1945 Author Organization [facility] Address [address] [place] [address] Care Team Providers Name Role Phone Unavailable Primary Care Provider Unavailable Encounter Details Date Type Department Care Team Description 08/19/2020 Orders Only [facility] O f Ernie Guzmán MD [phone] [place] [address] [place], [place] [phone] (Wo rk) Social History Tobacco Use [...] MD LAB BLOOD ORDERABLES Performing Organization Address City/[facility]/ZIP Code Phon e Number [facility] POST CHEMISTRY (08/19/2020) athologist Signature BUN Post 11 6 - 19 [facility] Dialysis mg/dL [facility] Specimen (Source) Anatomical Collection Method Collection Time Re ceived Time Location / / Volume Laterality 08/19/2020 08/21/2020 12:3 5 PM CDT Narrative [facility] - 08/22/2020 Unless otherwise specified, test(s) performed at: [facility], [address] [place] [address] TENANT COORDINATOR: Alec Payan M.D. For any questions, please call customer service at FREQUENCY:MONTHLY Resulting Agency Comment Specimen source: Plasma Ernie Pompa MD LAB BLOOD ORDERABLES Performing Organization Address City/[facility]/ZIP Code Phon e Number [facility] (ABNORMAL) Spectrae Chemistry (08/19/2020) [facility] Time Signature BUN 49 (H) [...] 08/22/2020 Unless otherwise specified, test(s) performed at: [facility], [address] [place] [address] TENANT COORDINATOR: Alec Payan M.D. For any questions, [...] 08/21/2020 Unless otherwise specified, test(s) performed at: [facility], [address] [place] [address] TENANT COORDINATOR: Alec Payan M.D. For any questions, please call customer service at FREQUENCY:MONTHLY Resulting Agency Comment Specimen source: Plasma Ernie Pompa MD LAB BLOOD ORDERABLES Performing Organization Address City/[facility] Phon e Number APS SPECTRA [...] 08/21/2020 Unless otherwise specified, test(s) performed at: [facility], [address] [place] [address] TENANT COORDINATOR: Alec Payan M.D. For any questions, please call customer service at FREQUENCY:MONTHLY Resulting Agency Comment Specimen source: Serum Ernie Pompa MD LAB BLOOD ORDERABLES Performing Organization Address [facility] Phon e Number APS SPECTRA [...] 08/21/2020 Unless otherwise specified, test(s) performed at: [facility], [address] [place] [address] TENANT COORDINATOR: Alec Payan M.D. For any questions, please call customer service at FREQUENCY:MONTHLY Resulting Agency Comment Specimen source: Blood Ernie Pompa MD LAB BLOOD ORDERABLES Performing Organization Address City/State/ZIP Code Phon e Number [facility] documented in this encounter Visit Diagnoses Not on filedocumented in this encounter
--- OUTSIDE RECORDS SUMMARY | 2021-11-11 09:37 | XMS_ITS | Encounter Summary ---
:1945 Author Organization [facility] Address [address] [place] [address] Care Team Providers Name Role Phone Unavailable Primary Care Provider Unavailable Encounter Details Date Type Department Care Team Description 06/24/2020 Orders [facility] O f Ernie Guzmán MD [address] [place] [address] [place], [place] [phone] (Wo rk) Social History Tobacco Use [...] 06/26/2020 Unless otherwise specified, test(s) performed at: [email or web address], [address] [place] [address] DIETICIAN: Alec Payan M.D. For any questions, please call customer service at FREQUENCY:MONTHLY Resulting Agency Comment Specimen source: Plasma Ernie Pompa MD LAB BLOOD ORDERABLES Performing Organization Address City/[facility]/ZIP [facility] Phon e Number APS [...] 06/25/2020 Unless otherwise specified, test(s) performed at: [facility], [address] [place], [place] [id number] DIETICIAN: Alec Payan M.D. For any questions, please call customer service at FREQUENCY:MONTHLY Resulting Agency Comment Specimen source: Plasma Ernie Pompa MD LAB BLOOD ORDERABLES Performing Organization Address City/[facility] Phon e Number APS SPECTRA [...] 06/26/2020 Unless otherwise specified, test(s) performed at: [facility], [address] [place] [address] DIETICIAN: Alec Payan M.D. For any questions, please call customer service at FREQUENCY:MONTHLY Resulting Agency Comment Specimen source: Blood Ernie Pompa MD LAB BLOOD ORDERABLES Performing Organization Address City/[facility] Phon e Number [facility]PS S[facility]RA [facility] IMMUNO [...] [facility] (ABNORMAL) Spectrae Chemistry (06/24/2020) [facility] Method Time Signature Ferritin 951 (H) 22 [...] 06/25/2020 Unless otherwise specified, test(s) performed at: [email or web address], [address] [place] [address] DIETICIAN: Alec Payan M.D. For any questions, please call customer service at FREQUENCY:MONTHLY Resulting Agency Comment Specimen source: Serum Ernie Pompa MD LAB BLOOD ORDERABLES Performing Organization Address City/State/ZIP Code Phon e Number [facility] documented in this encounter Visit Diagnoses Not on filedocumented in this encounter
--- OUTSIDE RECORDS SUMMARY | 2021-11-11 09:37 | XMS_ITS | Encounter Summary ---
:1945 Author Organization [facility] Address [address] [place] [address] Care Team Providers Name Role Phone Unavailable Primary Care Provider Unavailable Encounter Details Date Type Department Care Team Description 07/15/2020 Orders [facility] O f Ernie Guzmán MD [address] [place] [address] [place], [place] [phone] (Wo rk) Social History Tobacco Use [...] 07/16/2020 Unless otherwise specified, test(s) performed at: [facility], [address] [place] [address] BUILDING AND GROUNDS SUPERVISOR: Alec Payan M.D. For any questions, please call customer service at FREQUENCY:OTHER Resulting Agency Comment Specimen source: Blood Ernie Pompa MD LAB BLOOD ORDERABLES Performing Organization Address City/State/ZIP Code Phon e Number [facility] documented in this encounter Visit Diagnoses Not on filedocumented in this encounter
--- OUTSIDE RECORDS SUMMARY | 2021-11-11 09:37 | XMS_ITS | Encounter Summary ---
:1945 Author Organization [facility] Address [address] [place] [address] Care Team Providers Name Role Phone Unavailable Primary Care Provider Unavailable Encounter Details Date Type Department Care Team Description 07/01/2020 Treatment [facility] f Ernie Guzmán MD [address] [place] [address] [place], [place] [address] [phone] (Wo rk) Social History Tobacco Use Types Packs/Day Years Used Date Smoking Tobacco: Unknown Comments: Smoking History Info:Patient n ot screened Sex Assigned at Date Recorded Not on file documented as of this encounter Miscellaneous Notes Dialysis Note - Ernie Pompa MD - 07/01/2020 11:18 AM CDT Date: Jul 01, 2020 Patient Name: Shaun Ocampo : 1945 Chart #: [id number] Sex: M This patient was personally seen [...] AM ) BP (sit): 115/74 AP(-) / FEED CRUSHER OPERATOR: 251/198 Pulse: 66 Chairside data as of [...] Every 2 weeks During Dialysis 06/24/2020 06/23/2021 PELT DROPPER: Ernie Pompa MD LOCATION: [phone] SCHEDULE: M-W-F 2nd Shift EDW: kg. DIALYZER: HD DURATION: NEEDLE SIZE: ANTICOAG: BATH: QB: ml/min QD: ml/min Subjective Tolerating dialysis well. 07/01: Doing well, feels great. Big problem is fluid gains, discussed in great detail again today. Having procedure for ureteral ?tumor early next month in [place]. 06/10: Doing well overall, no new complaints, [...] Went to Urgent care -> ER in [place] yesterday,CT with R hydro but no obstructive [...] prescription. Vascular Access Assessment Type of access: Sphprjt13/2019 Surgeon - Lary KUMARW Access working well [...] at goal. Intact PTH is above goal. Premium Note Interest Calculator Clerk will adjust binders and vitamin D per [...] on dialysis. Schedule UF run extra at [place] when available. Hold Hep day before and [...]
--- OUTSIDE RECORDS SUMMARY | 2021-11-11 09:38 | XMS_ITS | Encounter Summary ---
:1945 Author Organization [facility] Address [address] [place] [address] Care Team Providers Name Role Phone Unavailable Primary Care Provider Unavailable Encounter Details Date Type Department Care Team Description 03/04/2020 Treatment [facility] O Ernie Gómez MD [address] [place] [address] [place], [place] [phone] [phone] (Wo rk) Social History Tobacco Use Types Packs/Day Years Used Date Smoking Tobacco: Unknown Comments: Smoking History Info:Patient n ot screened Sex Assigned at Date Recorded Not on file documented as of this encounter Miscellaneous Notes Dialysis Note - Ernie Pompa MD - 03/04/2020 9:33 AM CST Date: Mar 04, 2020 Patient Name: Shaun Ocampo : 1945 Chart #: [id number] Sex: M This patient was personally seen [...] AM ) BP (sit): 95/48 AP(-) / BRAZE OPERATOR: 248/204 Pulse: 71 Chairside data as [...] Every 4 weeks During Dialysis 02/12/2020 02/10/2021 PANEL INSTRUMENT REPAIRER: Ernie Pompa MD LOCATION: [facility] [phone] SCHEDULE: M-W- 2nd Shift ACCESS: EDW: kg. [...] (07/24/19) Vascular Access Assessment: Type of access: Vcakgtj66/2019 Surgeon - Lary GARDNER Access working well [...]
--- OUTSIDE RECORDS SUMMARY | 2021-11-11 09:38 | XMS_ITS | Encounter Summary ---
:1945 Author Organization [facility] Address [address] [place] [address] Care Team Providers Name Role Phone Unavailable Primary Care Provider Unavailable Encounter Details Date Type Department Care Team Description 01/15/2020 Orders Only [facility] O f Ernie Guzmán MD [address] [place] [address] [place], [place] [phone] (Wo rk) Social History Tobacco Use [...] 01/16/2020 Unless otherwise specified, test(s) performed at: [facility], [address] [place] [address] DRUG SAFETY DATA MANAGEMENT SPECIALIST: Alec Payan M.D. For any questions, please call customer service at FREQUENCY:OTHER Resulting Agency Comment Specimen source: Blood Ernie Pompa MD LAB BLOOD ORDERABLES Performing Organization Address City/State/ZIP Code Phon e Number [facility] S[facility]RA [facility] documented in this encounter Visit Diagnoses Not on filedocumented in this encounter
--- OUTSIDE RECORDS SUMMARY | 2021-11-11 09:38 | XMS_ITS | Encounter Summary ---
:1945 Author Organization [facility] Address [address] [place] [address] Care Team Providers Name Role Phone Unavailable Primary Care Provider Unavailable Encounter Details Date Type Department Care Team Description 04/08/2020 [facility] O f Ernie Guzmán MD [address] [place] [address] [place], [place] [phone] (Wo rk) Social History Tobacco Use [...] / Volume Laterality 04/08/2020 04/09/2020 2:20 PM CLERICAL CAR CHECKER Narrative [facility] - 04/09/2020 Unless otherwise specified, test(s) performed at: [facility], [address] [place] [address] SUSTAINABLE COMMUNITIES DESIGNER: Alec Payan M.D. For any questions, please call customer service at FREQUENCY:OTHER Resulting Agency Comment Specimen source: Blood Ernie Pompa MD LAB BLOOD ORDERABLES Performing Organization Address City/State/ZIP Code Phon e Number [facility] documented in this encounter Visit Diagnoses Not on filedocumented in this encounter
--- OUTSIDE RECORDS SUMMARY | 2021-11-11 09:38 | XMS_ITS | Encounter Summary ---
:1945 Author Organization [facility] Address [address] [place] [address] Care Team Providers Name Role Phone Unavailable Primary Care Provider Unavailable Encounter Details Date Type Department Care Team Description 01/08/2020 [facility] O f Ernie Guzmán MD [address] [place] [address] [place], [place] [phone] (Wo rk) Social History Tobacco Use [...] 01/09/2020 Unless otherwise specified, test(s) performed at: [facility], [address] [place] [address] NET DEVELOPER WITH WCF: Alec Payan M.D. For any questions, please call customer service at FREQUENCY:OTHER Resulting Agency Comment Specimen source: Blood Ernie Pompa MD LAB BLOOD ORDERABLES Performing Organization Address City/State/ZIP Code Phon e Number [facility] documented in this encounter Visit Diagnoses Not on filedocumented in this encounter
--- OUTSIDE RECORDS SUMMARY | 2021-11-11 09:38 | XMS_ITS | Encounter Summary ---
:1945 Author Organization [facility] Address [address] [place] [address] Care Team Providers Name Role Phone Unavailable Primary Care Provider Unavailable Encounter Details Date Type Department Care Team Description 03/25/2020 Treatment [facility] f Ernie Guzmán MD [address] [place] [address] [place], [place] [phone] [phone] (Wo rk) Social History Tobacco Use Types Packs/Day Years Used Date Smoking Tobacco: Unknown Comments: Smoking History Info:Patient n ot screened Sex Assigned at Date Recorded Not on file documented as of this encounter Miscellaneous Notes Dialysis Note - Ernie Pompa MD - 03/25/2020 10:39 AM CST Date: Mar 25, 2020 Patient Name: Shaun Ocampo : 1945 Chart #: [id number] Sex: M This patient was personally seen [...] AM ) BP (sit): 115/62 AP(-) / ANIMATION PRODUCER: 248/203 Pulse: 72 Chairside data as of [...] Every 4 weeks During Dialysis 03/18/2020 03/17/2021 TAX SERVICES PROFESSIONAL: Ernie Pompa MD LOCATION: [phone] SCHEDULE: M-W-F 2nd Shift EDW: kg. DIALYZER: [...] prescription. Vascular Access Assessment Type of access: Hawzonl83/2019 Surgeon - Lary KUMARW Access working well [...] above goal. Intact PTH is at goal. Film Or Tape Librarian will adjust binders and vitamin D per [...]
--- OUTSIDE RECORDS SUMMARY | 2021-11-11 09:38 | XMS_ITS | Encounter Summary ---
:1945 Author Organization [facility] Address [address] [place] [address] Pkw[address] [place] [address] Care Team Providers Name Role Phone Unavailable Primary Care Provider Unavailable Encounter Details Date Type Department Care Team Description 03/04/2020 Orders [facility] O f Ernie Guzmán MD [address] [place] [address] [place], [place] [phone] (Wo rk) Social History Tobacco Use Types Packs/Day Years Used Date Smoking Tobacco: Unknown Comments: Smoking History Info:Patient n ot screened Sex Assigned at Date Recorded Not on file documented as of this encounter Plan of Treatment Not on filedocumented as of this encounter Procedures Procedure Name Priority Date/Time Associated Diagnosis Comme nts HEMATOLOGY Routine 03/04/2020 Results for thi s procedure are in the resu lts section. documented in this encounter Results (ABNORMAL) HEMATOLOGY (03/04/2020) Analysis Performed At Patho logist Time Signature Hemoglobin 11.4 (L) 14.0 - [facility] 18.0 g/dL [facility] Hemoglobin x 3 34.2 (L) 42.0 - [facility] 54.0 % [facility] Specimen (Source) Anatomical Collection Method Collection Time Re ceived Time Location / / Volume Laterality 03/04/2020 03/06/2020 1:44 PM COLORS CUSTODIAN Narrative [facility] - 03/06/2020 Unless otherwise specified, test(s) performed at: [facility], [address] [place] [address] SUPERVISOR CARTOGRAPHY: Alec Payan M.D. For any questions, please call customer service at FREQUENCY:OTHER Resulting Agency Comment Specimen source: Blood Ernie Pompa MD LAB BLOOD ORDERABLES Performing Organization Address City/State/ZIP Code Phon e Number [facility] documented in this encounter Visit Diagnoses Not on filedocumented in this encounter
--- OUTSIDE RECORDS SUMMARY | 2021-11-11 09:38 | XMS_ITS | Encounter Summary ---
:1945 Author Organization [facility] Address [address] [place] [address] Care Team Providers Name Role Phone Unavailable Primary Care Provider Unavailable Encounter Details Date Type Department Care Team Description 01/01/2020 Orders [facility] O f Ernie Guzmán MD [address] [place] [address] [place], [place] [phone] (Wo rk) Social History Tobacco Use [...] Provider LAB BLOOD ORDERABLES Performing Organization Address City/[facility]/ZIP Code Phon e Number [facility] (01/01/2020) P athologist Signature % Urea 77 65 - 80 % [facility] Reduction [facility] Specimen (Source) Anatomical Collection Method Collection Time Re ceived Time Location / / Volume Laterality 01/01/2020 01/02/2020 6:37 PM CDT Narrative [facility] - 01/02/2020 Unless otherwise specified, test(s) performed at: [facility], [address] [place] [address] GIS SOFTWARE ENGINEER: Alec Payan M.D. For any questions, please call customer service at FREQUENCY:OTHER Resulting Agency Comment Specimen source: Serum Ernie Pompa MD LAB BLOOD ORDERABLES Performing Organization Address [facility] Phon e Number [facility] (ABNORMAL) Spectrae Chemistry (01/01/2020) P athologist Signature BUN 53 (H) 6 - 19 [facility] mg/dL [facility] Specimen (Source) Anatomical Collection Method Collection Time Re ceived Time Location / / Volume Laterality 01/01/2020 01/02/2020 6:36 PM CDT Narrative [facility] - 01/02/2020 Unless otherwise specified, test(s) performed at: [facility], [address] [place], [place] [id number] GIS SOFTWARE ENGINEER: Alec Payan M.D. For any questions, please call customer service at FREQUENCY:OTHER Resulting Agency Comment Specimen source: Serum Ernie Pompa MD LAB BLOOD ORDERABLES Performing Organization Address City/[facility] Phon e Number [facility] (ABNORMAL) [...] 01/02/2020 Unless otherwise specified, test(s) performed at: [facility], [address] [place] [address] GIS SOFTWARE ENGINEER: Alec Payan M.D. For any questions, please call customer service at FREQUENCY:OTHER Resulting Agency Comment Specimen source: Blood Ernie Pompa MD LAB BLOOD ORDERABLES Performing Organization Address City/State/[facility] Code Phon e Number [facility] POST CHEMISTRY (01/01/2020) P athologist Signature BUN Post 12 6 - 19 [facility] Dialysis mg/dL [facility] Specimen (Source) Anatomical Collection Method Collection Time Re ceived Time Location / / Volume Laterality 01/01/2020 01/02/2020 2:30 PM CDT Narrative [facility] - 01/02/2020 Unless otherwise specified, test(s) performed at: [facility], [address] [place] [address] GIS SOFTWARE ENGINEER: Alec Payan M.D. For any questions, please call customer service at FREQUENCY:OTHER Resulting Agency Comment Specimen source: Plasma Ernie Pompa MD LAB BLOOD ORDERABLES Performing Organization Address City/State/[facility] Code Phon e Number [facility] documented in this encounter Visit Diagnoses Not on filedocumented in this encounter
--- OUTSIDE RECORDS SUMMARY | 2021-11-11 09:38 | XMS_ITS | Encounter Summary ---
:1945 Author Organization [facility] Address [address] [place] [address] Care Team Providers Name Role Phone Unavailable Primary Care Provider Unavailable Encounter Details Date Type Department Care Team Description 01/22/2020 Orders Only [facility] O f Ernie Guzmán MD [address] [place] [address] [place], [place] [phone] (Wo rk) Social History Tobacco Use [...] / Volume Laterality 01/22/2020 01/23/2020 8:20 PM TECHNICAL SERVICES LIBRARIAN Narrative [facility] - 01/24/2020 Unless otherwise specified, test(s) performed at: [facility], [address] [place], [place] [id number] QUALITY CONTROL TECHNICIAN: Alec Payan M.D. For any questions, [...] / Volume Laterality 01/22/2020 01/23/2020 8:13 PM TECHNICAL SERVICES LIBRARIAN Narrative [facility] - 01/24/2020 Unless otherwise specified, test(s) performed at: [facility], [address] [place] [address] QUALITY CONTROL TECHNICIAN: Alec Payan M.D. For any questions, please call customer service at FREQUENCY:MONTHLY Resulting Agency Comment Specimen source: Serum Ernie Pompa MD LAB BLOOD ORDERABLES Performing Organization Address City/[facility] Phon e Number [facility] HD KINETICS (01/22/2020) P athologist Signature % Urea 77 65 - 80 % [facility] Reduction [facility] Specimen (Source) Anatomical Collection Method Collection Time Re ceived Time Location / / Volume Laterality 01/22/2020 01/23/2020 8:14 PM TECHNICAL SERVICES LIBRARIAN Narrative [facility] - 01/24/2020 Unless otherwise specified, test(s) performed at: [facility], [address] [place] [address] QUALITY CONTROL TECHNICIAN: Alec Payan M.D. For any questions, [...] / Volume Laterality 01/22/2020 01/23/2020 8:13 PM TECHNICAL SERVICES LIBRARIAN Narrative [facility] - 01/24/2020 Unless otherwise specified, test(s) performed at: [facility], [address] [place] [address] QUALITY CONTROL TECHNICIAN: Alec Payan M.D. For any questions, please call customer service at FREQUENCY:MONTHLY Resulting Agency Comment Specimen source: Serum Ernie Pompa MD LAB BLOOD ORDERABLES Performing Organization Address City/[facility] Phon e Number [facility] POST CHEMISTRY (01/22/2020) P athologist Signature BUN Post 16 6 - 19 [facility] Dialysis mg/dL [facility] Specimen (Source) Anatomical Collection Method Collection Time Re ceived Time Location / / Volume Laterality 01/22/2020 01/23/2020 1:17 PM TECHNICAL SERVICES LIBRARIAN Narrative [facility] - 01/23/2020 Unless otherwise specified, test(s) performed at: [facility], [address] [place] [address] QUALITY CONTROL TECHNICIAN: Alec Payan M.D. For any questions, please call customer service at FREQUENCY:MONTHLY Resulting Agency Comment Specimen source: Plasma Ernie Pompa MD LAB BLOOD ORDERABLES Performing Organization Address City/[facility] Phon e Number [facility] documented in this encounter Visit Diagnoses Not on filedocumented in this encounter
--- OUTSIDE RECORDS SUMMARY | 2021-11-11 09:38 | XMS_ITS | Encounter Summary ---
:1945 Author Organization [facility] Address [address] [place] [address] Care Team Providers Name Role Phone Unavailable Primary Care Provider Unavailable Encounter Details Date Type Department Care Team Description 02/12/2020 Orders Only [facility] O f Ernie Guzmán MD [address] [place] [address] [place], [place] [phone] (Wo rk) Social History Tobacco Use [...] Volume Laterality 02/12/2020 02/14/2020 12:5 9 PM VEGETABLE FARM WORKER Narrative [facility] - 02/14/2020 Unless otherwise specified, test(s) performed at: [facility], [address] [place] [address] STEAMER OPERATOR: Alec Payan M.D. For any questions, please call customer service at FREQUENCY:OTHER Resulting Agency Comment Specimen source: Blood Ernie Pompa MD LAB BLOOD ORDERABLES Performing Organization Address City/State/ZIP Code Phon e Number [facility] documented in this encounter Visit Diagnoses Not on filedocumented in this encounter
--- OUTSIDE RECORDS SUMMARY | 2021-11-11 09:38 | XMS_ITS | Encounter Summary ---
:1945 Author Organization [facility] Address [address] [place] [address] [address]kw[address] [place] [address] Care Team Providers Name Role Phone Unavailable Primary Care Provider Unavailable Encounter Details Date Type Department Care Team Description 02/26/2020 Orders Only [facility] O f Ernie Guzmán MD [address] [place] [address] [place], [place] [phone] (Wo rk) Social History Tobacco Use [...] / Volume Laterality 02/26/2020 02/27/2020 2:55 PM CAPITAL CAMPAIGN FUNDRAISER Narrative [facility] - 02/27/2020 Unless otherwise specified, test(s) performed at: [facility], [address] [place] [address] DOUGH CUTTER: Alec Payan M.D. For any questions, please call customer service at FREQUENCY:OTHER Resulting Agency Comment Specimen source: Blood Ernie Pompa MD LAB BLOOD ORDERABLES Performing Organization Address City/State/ZIP Code Phon e Number [facility] documented in this encounter Visit Diagnoses Not on filedocumented in this encounter
--- OUTSIDE RECORDS SUMMARY | 2021-11-11 09:38 | XMS_ITS | Encounter Summary ---
:1945 Author Organization [facility] Address [address] [place] [address] Care Team Providers Name Role Phone Unavailable Primary Care Provider Unavailable Encounter Details Date Type Department Care Team Description 05/06/2020 Orders Only [facility] O f Ernie Guzmán MD [address] [place] [address] [place], [place] [phone] (Wo rk) Social History Tobacco Use [...] / Volume Laterality 05/06/2020 05/07/2020 2:32 PM PAINT LINE PRODUCTION SUPERVISOR Narrative [facility] - 05/07/2020 Unless otherwise specified, test(s) performed at: [facility], [address] [place] [address] RUNNER WORKER: Alec Payan M.D. For any questions, please call customer service at FREQUENCY:OTHER Resulting Agency Comment Specimen source: Blood Ernie Pompa MD LAB BLOOD ORDERABLES Performing Organization Address City/State/ZIP Code Phon e Number [facility] documented in this encounter Visit Diagnoses Not on filedocumented in this encounter
--- OUTSIDE RECORDS SUMMARY | 2021-11-11 09:38 | XMS_ITS | Encounter Summary ---
:1945 Author Organization [facility] Address [address] [place] [address] Care Team Providers Name Role Phone Unavailable Primary Care Provider Unavailable Encounter Details Date Type Department Care Team Description 04/22/2020 Treatment [facility] O f Ernie Guzmán MD [address] [place] [address] [place], [place] [address] [phone] (Wo rk) Social History Tobacco Use Types Packs/Day Years Used Date Smoking Tobacco: Unknown Comments: Smoking History Info:Patient n ot screened Sex Assigned at Date Recorded Not on file documented as of this encounter Miscellaneous Notes Dialysis Note - Ernie Pompa MD - 04/22/2020 11:52 AM CST Date: Apr 22, 2020 Patient Name: Shaun Ocampo : 1945 Chart #: [id number] Sex: M This patient was personally seen [...] AM ) BP (sit): 115/64 AP(-) / FORENSICS ANALYST: 258/208 Pulse: 67 Chairside data as of [...] Every 4 weeks During Dialysis 04/15/2020 04/14/2021 CAMP GUARD: Ernie Pompa MD LOCATION: [phone] SCHEDULE: M-W-F 2nd Shift EDW: kg. DIALYZER: [...] prescription. Vascular Access Assessment Type of access: [id number]/2019 Surgeon - Lary GARDNER Access working well [...] above goal. Intact PTH is above goal. Nuclear Physicist will adjust binders and vitamin D per [...]
--- OUTSIDE RECORDS SUMMARY | 2021-11-11 09:38 | XMS_ITS | Encounter Summary ---
:1945 Author Organization [facility] Address [address] [place] [address] Care Team Providers Name Role Phone Unavailable Primary Care Provider Unavailable Encounter Details Date Type Department Care Team Description 06/10/2020 Treatment [facility] O Ernie Gómez MD [address] [place] [address] [place], [place] [address] [phone] (Wo rk) Social History Tobacco Use Types Packs/Day Years Used Date Smoking Tobacco: Unknown Comments: Smoking History Info:Patient n ot screened Sex Assigned at Date Recorded Not on file documented as of this encounter Miscellaneous Notes Dialysis Note - Ernie Pompa MD - 06/10/2020 11:04 AM CDT Date: Jun 10, 2020 Patient Name: Shaun Ocampo : 1945 Chart #: [id number] Sex: M This patient was personally seen [...] AM ) BP (sit): 120/54 AP(-) / COMMUNICATIONS DIRECTOR: 219/180 Pulse: 69 Chairside data as of [...] Every 4 weeks During Dialysis 04/15/2020 04/14/2021 TANK TRUCK ENGINE MECHANIC: Ernie Pompa MD LOCATION: [phone] SCHEDULE: M-W-F 2nd Shift ACCESS: EDW: kg. [...] Went to Urgent care -> ER in [place] yesterday,CT with R hydro but no obstructive [...] He had infiltration last week, dialyzed at [facility] on Sat and went well, access [...] (03/25/20) Vascular Access Assessment: Type of access: [id number]/2019 Surgeon - Lary GARDNER Access working well [...]
--- OUTSIDE RECORDS SUMMARY | 2021-11-11 09:38 | XMS_ITS | Encounter Summary ---
:1945 Author Organization [facility] Address [address] [place] [address] Care Team Providers Name Role Phone Unavailable Primary Care Provider Unavailable Encounter Details Date Type Department Care Team Description 05/27/2020 Treatment [facility] O Ernie Gómez MD [address] [place] [address] [place], [place] [phone] (Wo rk) Social History Tobacco Use Types Packs/Day Years Used Date Smoking Tobacco: Unknown Comments: Smoking History Info:Patient n ot screened Sex Assigned at Date Recorded Not on file documented as of this encounter Miscellaneous Notes Dialysis Note - Ernie Pompa MD - 05/27/2020 12:29 PM CST Date: May 27, 2020 Patient Name: Shaun Ocampo : 1945 Chart #: [id number] Sex: M This patient was personally seen [...] AM ) BP (sit): 122/55 AP(-) / VEHICLE DELIVERY WORKER: 234/221 Pulse: 72 Chairside data as of [...] Every 4 weeks During Dialysis 04/15/2020 04/14/2021 PLYWOOD PATCHER: Ernie Pompa MD LOCATION: [phone] SCHEDULE: M-W-F 2nd Shift EDW: kg. DIALYZER: [...] Went to Urgent care -> ER in [place] yesterday,CT with R hydro but no obstructive [...] He had infiltration last week, dialyzed at [facility] on Sat and went well, [...] prescription. Vascular Access Assessment Type of access: [id number]/2019 Surgeon - Lary GARDNER Access working well [...] above goal. Intact PTH is above goal. Film Booker will adjust binders and vitamin D per [...]
--- OUTSIDE RECORDS SUMMARY | 2021-11-11 09:38 | XMS_ITS | Encounter Summary ---
:1945 Author Organization [facility] Address [address] [place] [address] [place] [address] Care Team Providers Name Role Phone Unavailable Primary Care Provider Unavailable Encounter Details Date Type Department Care Team Description 06/03/2020 Orders Only [facility] O f Ernie Guzmán MD [address] [place] [address] [place], [place] [phone] (Wo rk) Social History Tobacco Use [...] 06/04/2020 Unless otherwise specified, test(s) performed at: [facility], [address] [place] [address] FOOD AND BEVERAGE OPERATIONS MANAGER: Alec Payan M.D. For any questions, please call customer service at FREQUENCY:OTHER Resulting Agency Comment Specimen source: Blood Ernie Pompa MD LAB BLOOD ORDERABLES Performing Organization Address City/State/ZIP Code Phon e Number [facility] documented in this encounter Visit Diagnoses Not on filedocumented in this encounter
--- OUTSIDE RECORDS SUMMARY | 2021-11-11 09:38 | XMS_ITS | Encounter Summary ---
:1945 Author Organization [facility] Address [address] [place] [address] Care Team Providers Name Role Phone Unavailable Primary Care Provider Unavailable Encounter Details Date Type Department Care Team Description 02/19/2020 Treatment [facility] O Ernie Gómez MD [address] [place] [address] [place], [place] [address] [phone] (Wo rk) Social History Tobacco Use Types Packs/Day Years Used Date Smoking Tobacco: Unknown Comments: Smoking History Info:Patient n ot screened Sex Assigned at Date Recorded Not on file documented as of this encounter Miscellaneous Notes Dialysis Note - Ernie Pompa MD - 02/19/2020 10:37 AM CST Date: Feb 19, 2020 Patient Name: Shaun Ocampo : 1945 Chart #: [id number] Sex: M This patient was personally seen [...] AM ) BP (sit): 104/47 AP(-) / DESIGN SPECIALIST: 260/215 Pulse: 84 Chairside data as of [...] Every 4 weeks During Dialysis 02/12/2020 02/10/2021 STUDENT DEVELOPMENT DEAN: Ernie Pompa MD LOCATION: [facility] [phone] SCHEDULE: M-W-F 2nd Shift EDW: kg. DIALYZER: [...] had infiltration last week, dialyzed at [facility] on Sat and went well, [...] prescription. Vascular Access Assessment Type of access: [email or web address]/2019 Surgeon Annita KUMARW Access working well Anemia [...] above goal. Intact PTH is at goal. Ecdis N Navigation Operator will adjust binders and vitamin D [...]
--- OUTSIDE RECORDS SUMMARY | 2021-11-11 09:38 | XMS_ITS | Encounter Summary ---
:1945 Author Organization [facility] Address [address] [place] [address] Care Team Providers Name Role Phone Unavailable Primary Care Provider Unavailable Encounter Details Date Type Department Care Team Description 01/29/2020 [facility] O f Ernie Guzmán MD [address] [place] [address] [place], [place] [phone] (Wo rk) Social History Tobacco Use [...] / Volume Laterality 01/29/2020 01/30/2020 5:28 PM TRANSFORMATION CONSULTANT Narrative [facility] - 01/30/2020 Unless otherwise specified, test(s) performed at: [facility], [address] [place] [address] PUTAWAY DRIVER: Alec Payan M.D. For any questions, [...] / Volume Laterality 01/29/2020 01/30/2020 1:32 PM TRANSFORMATION CONSULTANT Narrative [facility] - 01/30/2020 Unless otherwise specified, test(s) performed at: [facility], [address] [place] [address] PUTAWAY DRIVER: Alec Payan M.D. For any questions, please call customer service at FREQUENCY:OTHER Resulting Agency Comment Specimen source: Blood Ernie Pompa MD LAB BLOOD ORDERABLES Performing Organization Address City/State/ZIP Code Phon e Number [facility] documented in this encounter Visit Diagnoses Not on filedocumented in this encounter
--- OUTSIDE RECORDS SUMMARY | 2021-11-11 09:38 | XMS_ITS | Encounter Summary ---
:1945 Author Organization [facility] Address [address] [place] [address] Care Team Providers Name Role Phone Unavailable Primary Care Provider Unavailable Encounter Details Date Type Department Care Team Description 02/05/2020 [facility] O f Ernie Guzmán MD [address] [place] [address] [place], [place] [phone] (Wo rk) Social History Tobacco Use [...] Volume Laterality 02/05/2020 02/06/2020 10:4 4 AM DISABILITIES CAREGIVER Narrative [facility] - 02/06/2020 Unless otherwise specified, test(s) performed at: [facility], [address] [place] [address] MANAGER PLAY: Alec Payan M.D. For any questions, please call customer service at FREQUENCY:OTHER Resulting Agency Comment Specimen source: Blood Ernie Pompa MD LAB BLOOD ORDERABLES Performing Organization Address City/State/ZIP Code Phon e Number [facility] documented in this encounter Visit Diagnoses Not on filedocumented in this encounter
--- OUTSIDE RECORDS SUMMARY | 2021-11-11 09:38 | XMS_ITS | Encounter Summary ---
:1945 Author Organization [facility] Address [address] [place] [address] Care Team Providers Name Role Phone Unavailable Primary Care Provider Unavailable Encounter Details Date Type Department Care Team Description 04/01/2020 [facility] O f Ernie Guzmán MD [address] [place] [address] [place], [place] [phone] (Wo rk) Social History Tobacco Use [...] / Volume Laterality 04/01/2020 04/02/2020 2:28 PM CARCASS SPLITTER Narrative [facility] - 04/02/2020 Unless otherwise specified, test(s) performed at: [facility], [address] [place] [address] FBI SHARPSHOOTER: Alec Payan M.D. For any questions, please call customer service at FREQUENCY:OTHER Resulting Agency Comment Specimen source: Blood Ernie Pompa MD LAB BLOOD ORDERABLES Performing Organization Address City/State/ZIP Code Phon e Number [facility] documented in this encounter Visit Diagnoses Not on filedocumented in this encounter
--- OUTSIDE RECORDS SUMMARY | 2021-11-11 09:38 | XMS_ITS | Encounter Summary ---
:1945 Author Organization [facility] Address [address] [place] [address] Care Team Providers Name Role Phone Unavailable Primary Care Provider Unavailable Encounter Details Date Type Department Care Team Description 04/15/2020 [facility] O f Ernie Guzmán MD [address] [place] [address] [place], [place] [phone] (Wo rk) Social History Tobacco Use [...] / Volume Laterality 04/15/2020 04/16/2020 9:36 AM CALL CENTER TEAM LEADER Narrative [facility] - 04/16/2020 Unless otherwise specified, test(s) performed at: [facility], [address] [place] [address] BABCOCK TESTER: Alec Payan M.D. For any questions, please call customer service at FREQUENCY:OTHER Resulting Agency Comment Specimen source: Blood Ernie Pompa MD LAB BLOOD ORDERABLES Performing Organization Address City/State/ZIP Code Phon e Number [facility] documented in this encounter Visit Diagnoses Not on filedocumented in this encounter
--- OUTSIDE RECORDS SUMMARY | 2021-11-11 09:38 | XMS_ITS | Encounter Summary ---
:1945 Author Organization [facility] Address [address] [place] [address] Care Team Providers Name Role Phone Unavailable Primary Care Provider Unavailable Encounter Details Date Type Department Care Team Description 05/20/2020 [facility] O f Ernie Guzmán MD [address] [place] [address] [place], [place] [phone] (Wo rk) Social History Tobacco Use [...] . documented in this encounter Results [facility] Lab Results (05/20/2020) P athologist Signature spKt/V [...] Volume Laterality 05/20/2020 05/21/2020 10:4 9 PM CLAIM APPROVER Resulting Agency Comment Specimen source: Plasma Ernie Pompa MD LAB BLOOD ORDERABLES Performing Organization Address City/[facility]/ZIP Code Phon e Number [facility] POST CHEMISTRY (05/20/2020) athologist Signature BUN Post 12 6 - 19 [facility] Dialysis mg/dL [facility] Specimen (Source) Anatomical Collection Method Collection Time Re ceived Time Location / / Volume Laterality 05/20/2020 05/21/2020 10:4 8 PM CLAIM APPROVER Narrative [facility] - 05/22/2020 Unless otherwise specified, test(s) performed at: [facility], [address] [place] [address] WELFARE SERVICE AIDE: Alec Payan M.D. For any questions, [...] / Volume Laterality 05/20/2020 05/21/2020 6:17 PM CLAIM APPROVER Narrative [facility] - 05/22/2020 Unless otherwise specified, test(s) performed at: [facility], [address] [place] [address] WELFARE SERVICE AIDE: Alec Payan M.D. For any questions, [...] / Volume Laterality 05/20/2020 05/21/2020 4:04 PM CLAIM APPROVER Narrative [facility] - 05/22/2020 Unless otherwise specified, test(s) performed at: [place] [address] WELFARE SERVICE AIDE: Alec Payan M.D. For any questions, [...] / Volume Laterality 05/20/2020 05/21/2020 4:04 PM CLAIM APPROVER Narrative [facility] - 05/22/2020 Unless otherwise specified, test(s) performed at: [facility], [address] [place] [address] WELFARE SERVICE AIDE: Alec Payan M.D. For any questions, please call customer service at FREQUENCY:MONTHLY Resulting Agency Comment Specimen source: Blood Ernie Pompa MD LAB BLOOD ORDERABLES Performing Organization Address City/State/ZIP Code Phon e Number [facility] (ABNORMAL) [facility] Chemistry (05/20/2020) [facility] gist Method Time Signature BUN 56 [...] / Volume Laterality 05/20/2020 05/21/2020 6:17 PM CLAIM APPROVER Narrative [facility] - 05/21/2020 Unless otherwise specified, test(s) performed at: [facility], [address] [place] [address] WELFARE SERVICE AIDE: Alec Payan M.D. For any questions, please call customer service at FREQUENCY:MONTHLY Resulting Agency Comment Specimen source: Serum rEnie Pompa MD LAB BLOOD ORDERABLES Performing Organization Address City/State/ZIP Code Phon e Number [facility] documented in this encounter Visit Diagnoses Not on filedocumented in this encounter
--- OUTSIDE RECORDS SUMMARY | 2021-11-11 09:38 | XMS_ITS | Encounter Summary ---
:1945 Author Organization [facility] Address [address] [place] [address] Care Team Providers Name Role Phone Unavailable Primary Care Provider Unavailable Encounter Details Date Type Department Care Team Description 04/29/2020 [facility] O f Ernie Guzmán MD [address] [place] [address] [place], [place] [phone] (Wo rk) Social History Tobacco Use [...] / Volume Laterality 04/29/2020 05/01/2020 2:20 PM BOBBIN DISKER Narrative [facility] - 05/01/2020 Unless otherwise specified, test(s) performed at: [facility], [address] [place] [address] CERAMIC TILE SETTER: Alec Payan M.D. For any questions, please call customer service at FREQUENCY:OTHER Resulting Agency Comment Specimen source: Blood Ernie Pompa MD LAB BLOOD ORDERABLES Performing Organization Address City/State/ZIP Code Phon e Number [facility] documented in this encounter Visit Diagnoses Not on filedocumented in this encounter
--- OUTSIDE RECORDS SUMMARY | 2021-11-11 09:38 | XMS_ITS | Encounter Summary ---
:1945 Author Organization [facility] Address [address] [place] [address] Care Team Providers Name Role Phone Unavailable Primary Care Provider Unavailable Encounter Details Date Type Department Care Team Description 05/06/2020 Treatment [facility] f Ernie Guzmán MD [address] [place] [address] [place], [place] [phone] [phone] (Wo rk) Social History Tobacco Use Types Packs/Day Years Used Date Smoking Tobacco: Unknown Comments: Smoking History Info:Patient n ot screened Sex Assigned at Date Recorded Not on file documented as of this encounter Miscellaneous Notes Dialysis Note - Ernie Pompa MD - 05/06/2020 11:40 AM CST Date: May 06, 2020 Patient Name: Shaun Ocampo : 1945 Chart #: [id number] Sex: M This patient was personally seen [...] AM ) BP (sit): 108/52 AP(-) / CONCRETE ENGINEERING TECHNICIAN: 261/214 Pulse: 89 Chairside data as of [...] Every 4 weeks During Dialysis 04/15/2020 04/14/2021 LABORER STORES: Ernie Pompa MD LOCATION: [phone] SCHEDULE: 2nd Shift ACCESS: EDW: kg. DIALYZER: HD DURATION: NEEDLE SIZE: ANTICOAG: BATH: QB: ml/min QD: ml/min Subjective Tolerating dialysis well. Reports no trouble with access. 05/06: HD going well outside high fluid gains that continue. However, acute abd/groin pain on Monday and came off early. Had gross hematuria Monday. Went to Urgent care -> ER in [place] yesterday,CT with R hydro but no obstructive [...] He had infiltration last week, dialyzed at [facility] on Sat and went well, access ok [...] (12/25/19) Vascular Access Assessment: Type of access: Esjxery27/2019 Surgeon - Lary GARDNER Access working well Impression and Plan No changes, stable dialysis He will monitor sx and ensure gross hematuria resolves and pain resolving over next 48hrs [facility] [...]
--- OUTSIDE RECORDS SUMMARY | 2021-11-11 09:38 | XMS_ITS | Encounter Summary ---
:1945 Author Organization [facility] Address [address] [place] [address] Care Team Providers Name Role Phone Unavailable Primary Care Provider Unavailable Encounter Details Date Type Department Care Team Description 04/08/2020 Treatment [facility] O f Ernie Guzmán MD [address] [place] [address] [place], [place] [address] [phone] (Wo rk) Social History Tobacco Use Types Packs/Day Years Used Date Smoking Tobacco: Unknown Comments: Smoking History Info:Patient n ot screened Sex Assigned at Date Recorded Not on file documented as of this encounter Miscellaneous Notes Dialysis Note - Ernie Pompa MD - 04/08/2020 12:32 PM CST Date: Apr 08, 2020 Patient Name: Shaun Ocampo : 1945 Chart #: [id number] Sex: M This patient was personally seen [...] PM ) BP (sit): 101/53 AP(-) / ORTHOPEDIC TECH: 255/193 Pulse: 70 Chairside data as of [...] Every 4 weeks During Dialysis 03/18/2020 03/17/2021 REPRODUCTIVE ENDOCRINOLOGIST: Ernie Pompa MD LOCATION: [phone] SCHEDULE: M-W- 2nd Shift ACCESS: EDW: kg. [...] (09/18/19) Vascular Access Assessment: Type of access: Sbsidwx28/2019 Surgeon - Lary GARDNER Access working well [...]
--- OUTSIDE RECORDS SUMMARY | 2021-11-11 09:38 | XMS_ITS | Encounter Summary ---
:1945 Author Organization [facility] Address [address] [place] [address] Care Team Providers Name Role Phone Unavailable Primary Care Provider Unavailable Encounter Details Date Type Department Care Team Description 03/16/2020 Orders Only [facility] O f Ernie Guzmán MD [address] [place] [address] [place], [place] [phone] (Wo rk) Social History Tobacco Use [...] Volume Laterality 03/16/2020 03/17/2020 12:0 2 PM MANAGER PRODUCT MANAGEMENT Narrative [facility] - 03/17/2020 Unless otherwise specified, test(s) performed at: [facility], [address] [place] [address] ENVIRONMENTAL DESIGNER: Alec Payan M.D. For any questions, please call customer service at FREQUENCY:OTHER Resulting Agency Comment Specimen source: Blood Ernie Pompa MD LAB BLOOD ORDERABLES Performing Organization Address City/State/ZIP Code Phon e Number [facility] documented in this encounter Visit Diagnoses Not on filedocumented in this encounter
--- OUTSIDE RECORDS SUMMARY | 2021-11-11 09:38 | XMS_ITS | Encounter Summary ---
:1945 Author Organization [facility] Address [address] [place] [address] Care Team Providers Name Role Phone Unavailable Primary Care Provider Unavailable Encounter Details Date Type Department Care Team Description 02/19/2020 Orders Only [facility] O f Ernie Guzmán MD [address] [place] [address] [place], [place] [phone] (Wo rk) Social History Tobacco Use [...] II) PCR 75.43 [facility] eKt/V Gotch 1.60 [facility] eKdrt/V 1.60 [facility] eNPCR 1.05 [facility] eKt/V [...] / Volume Laterality 02/19/2020 02/20/2020 6:44 PM MEDICAL LABORATORY TECHNICIANS Resulting Agency Comment Specimen source: Plasma Ernie Pompa MD LAB BLOOD ORDERABLES Performing Organization Address City/State/ZIP Code Phon e Number [facility] POST CHEMISTRY (02/19/2020) P athologist Signature BUN Post 13 6 - 19 [facility] Dialysis mg/dL [facility] Specimen (Source) Anatomical Collection Method Collection Time Re ceived Time Location / / Volume Laterality 02/19/2020 02/20/2020 6:39 PM MEDICAL LABORATORY TECHNICIANS Narrative [facility] - 02/21/2020 Unless otherwise specified, test(s) performed at: [facility], [address] [place] [address] HYDROELECTRIC OPERATOR: Alec Payan M.D. For any questions, [...] Volume Laterality 02/19/2020 02/20/2020 10:1 5 AM MEDICAL LABORATORY TECHNICIANS Narrative [facility] - 02/20/2020 Unless otherwise specified, test(s) performed at: [facility], [address] [place], [place] [id number] HYDROELECTRIC OPERATOR: Alec Payan M.D. For any questions, [...] Volume Laterality 02/19/2020 02/20/2020 10:4 6 AM MEDICAL LABORATORY TECHNICIANS Resulting Agency Comment Specimen source: Serum Ernie [...] Volume Laterality 02/19/2020 02/20/2020 10:4 6 AM MEDICAL LABORATORY TECHNICIANS Narrative [facility] - 02/20/2020 Unless otherwise specified, test(s) performed at: [facility], [address] [place] [address] HYDROELECTRIC OPERATOR: Alec Payan M.D. For any questions, please call customer service at FREQUENCY:MONTHLY Resulting Agency Comment Specimen source: Serum Ernie Pompa MD LAB BLOOD ORDERABLES Performing Organization Address City/State/ZIP Code Phon e Number [facility] documented in this encounter Visit Diagnoses Not on filedocumented in this encounter
--- OUTSIDE RECORDS SUMMARY | 2021-11-11 09:38 | XMS_ITS | Encounter Summary ---
:1945 Author Organization [facility] Address [address] [place] [address] Care Team Providers Name Role Phone Unavailable Primary Care Provider Unavailable Encounter Details Date Type Department Care Team Description 04/22/2020 Orders [facility] O f Ernie Guzmán MD [address] [place] [address] [place], [place] [phone] (Wo rk) Social History Tobacco Use [...] / Volume Laterality 04/22/2020 04/23/2020 7:44 PM PHARMACEUTICAL SALESPERSON Narrative [facility] - 04/25/2020 Unless otherwise specified, test(s) performed at: [facility], [address] [place] [address] LOADING AND UNLOADING SUPERVISOR: Alec Payan M.D. For any questions, [...] / Volume Laterality 04/22/2020 04/23/2020 3:15 PM PHARMACEUTICAL SALESPERSON Narrative [facility] - 04/24/2020 Unless otherwise specified, test(s) performed at: [facility], [address] [place] [address] LOADING AND UNLOADING SUPERVISOR: Alec Payan M.D. For any questions, please call customer service at FREQUENCY:MONTHLY Resulting Agency Comment Specimen source: Blood Ernie Pompa MD LAB BLOOD ORDERABLES Performing Organization Address City/[facility] Phon e Number [facility] HD KINETICS (04/22/2020) P athologist Signature % Urea 79 65 - 80 % [facility] Reduction [facility] Specimen (Source) Anatomical Collection Method Collection Time Re ceived Time Location / / Volume Laterality 04/22/2020 04/23/2020 7:45 PM PHARMACEUTICAL SALESPERSON Narrative [facility] - 04/24/2020 Unless otherwise specified, test(s) performed at: [facility], [address] [place] [address] LOADING AND UNLOADING SUPERVISOR: Alec Payan M.D. For any questions, please call customer service at FREQUENCY:MONTHLY Resulting Agency Comment Specimen source: Serum Ernie Pompa MD LAB BLOOD ORDERABLES Performing Organization Address City/[facility] Code [...] / Volume Laterality 04/22/2020 04/23/2020 7:44 PM PHARMACEUTICAL SALESPERSON Narrative [facility] - 04/24/2020 Unless otherwise specified, test(s) performed at: [facility], [address] [place] [address] LOADING AND UNLOADING SUPERVISOR: Alec Payan M.D. For any questions, [...] / Volume Laterality 04/22/2020 04/23/2020 3:15 PM PHARMACEUTICAL SALESPERSON Narrative [facility] - 04/24/2020 Unless otherwise specified, test(s) performed at: [facility], [address] [place] [address] LOADING AND UNLOADING SUPERVISOR: Alec Payan M.D. For any questions, [...] / Volume Laterality 04/22/2020 04/23/2020 2:14 PM PHARMACEUTICAL SALESPERSON Narrative [facility] - 04/23/2020 Unless otherwise specified, test(s) performed at: [facility], [address] [place] [address] LOADING AND UNLOADING SUPERVISOR: Alec Payan M.D. For any questions, please call customer service at FREQUENCY:MONTHLY Resulting Agency Comment Specimen source: Plasma Ernie Pompa MD LAB BLOOD ORDERABLES Performing Organization Address City/State/ZIP Code Phon e Number [facility] documented in this encounter Visit Diagnoses Not on filedocumented in this encounter
--- OUTSIDE RECORDS SUMMARY | 2021-11-11 09:38 | XMS_ITS | Encounter Summary ---
:1945 Author Organization [facility] Address [address] [place] [address] Care Team Providers Name Role Phone Unavailable Primary Care Provider Unavailable Encounter Details Date Type Department Care Team Description 03/25/2020 Orders Only [facility] O f Ernie Guzmán MD [address] [place] [address] [place], [place] [phone] (Wo rk) Social History Tobacco Use [...] Volume Laterality 03/25/2020 03/27/2020 11:1 6 AM INSURANCE CLAIMS ANALYST Narrative [facility] - 03/30/2020 Unless otherwise specified, test(s) performed at: [facility], [address] [place] [address] MISSIONARY COORDINATOR: Alec Payan M.D. For any questions, [...] and its performa nce characteristics determined by [facility]. It has not been cleared or approved by the FDA. The laboratory is regulated under CLIA a s qualified to perform high complexity testing. This test is used fo r clinical purposes. It should not be regarded as investigational or fo r research. Specimen (Source) Anatomical Collection Method Collection Time Re ceived Time Location / / Volume Laterality 03/25/2020 03/26/2020 6:29 PM INSURANCE CLAIMS ANALYST Narrative [facility] - 03/28/2020 Unless otherwise specified, test(s) performed at: [facility], [address] [place], [place] [id number] MISSIONARY COORDINATOR: Alec Payan M.D. For any questions, please call customer service at FREQUENCY:MONTHLY Resulting Agency Comment Specimen source: Serum Ernie Pompa MD LAB BLOOD ORDERABLES Performing Organization Address City/[facility]/ZIP Code Phon e Number [facility] IMMUNO CHEMISTRY (03/25/2020) P athologist Signature Hep B Surface Negative Negative [facility] Ag [facility] Specimen (Source) Anatomical Collection Method Collection Time Re ceived Time Location / / Volume Laterality 03/25/2020 03/27/2020 11:1 6 AM INSURANCE CLAIMS ANALYST Resulting Agency Comment Specimen source: Serum Ernie Leimario CAMPBELL LAB BLOOD ORDERABLES Performing Organization Address City/[facility]/ZIP Code Phon e Number [facility] HD KINETICS (03/25/2020) P athologist Signature % Urea 79 65 - 80 % [facility] Reduction [facility] Specimen (Source) Anatomical Collection Method Collection Time Re ceived Time Location / / Volume Laterality 03/25/2020 03/27/2020 11:1 7 AM INSURANCE CLAIMS ANALYST Resulting Agency Comment Specimen source: Serum Ernie Leimario CAMPBELL LAB BLOOD ORDERABLES Performing Organization Address City/[facility]/ZIP Code Phon e Number [facility] POST CHEMISTRY (03/25/2020) P athologist Signature BUN Post 12 6 - 19 APS SPECTRA Dialysis mg/dL [facility] Specimen (Source) Anatomical Collection Method Collection Time Re ceived Time Location / / Volume Laterality 03/25/2020 03/27/2020 10:5 5 AM INSURANCE CLAIMS ANALYST Narrative [facility] - 03/27/2020 Unless otherwise specified, test(s) performed at: [facility], [address] [place] [address] MISSIONARY COORDINATOR: Alec Payan M.D. For any questions, please call customer service at FREQUENCY:MONTHLY Resulting Agency Comment Specimen source: Plasma Ernie Pompa MD LAB BLOOD ORDERABLES Performing Organization Address City/State/ZIP Code Phon e Number [facility] (ABNORMAL) Spectrae Chemistry (03/25/2020) [facility] Method Time Signature BUN 58 (H) [...] Volume Laterality 03/25/2020 03/27/2020 11:1 6 AM INSURANCE CLAIMS ANALYST Narrative [facility] - 03/28/2020 Unless otherwise specified, test(s) performed at: [facility], [address] [place] [address] MISSIONARY COORDINATOR: Alec Payan M.D. For any questions, please call customer service at FREQUENCY:MONTHLY Resulting Agency Comment Specimen source: Serum Ernie Pompa MD LAB BLOOD ORDERABLES Performing Organization Address City/[facility] Phon e Number [facility]RA [facility] (ABNORMAL) Spectrae Chemistry (03/25/2020) P athologist Signature PTH 828 (H) 16 - 80 A[facility]RA pg/mL [facility] Specimen (Source) Anatomical Collection Method Collection Time Re ceived Time Location / / Volume Laterality 03/25/2020 03/26/2020 5:05 PM INSURANCE CLAIMS ANALYST Narrative [facility] - 03/27/2020 Unless otherwise specified, test(s) performed at: [facility], [address] [place] [address] MISSIONARY COORDINATOR: Alec Payan M.D. For any questions, please call customer service at FREQUENCY:MONTHLY Resulting Agency Comment Specimen source: Plasma Ernie Pompa MD LAB BLOOD ORDERABLES Performing Organization Address City/[facility] Phon e Number APS [...] / Volume Laterality 03/25/2020 03/26/2020 5:05 PM INSURANCE CLAIMS ANALYST Narrative [facility] - 03/26/2020 Unless otherwise specified, test(s) performed at: [facility], [address] [place] [address] MISSIONARY COORDINATOR: Alec Payan M.D. For any questions, please call customer service at FREQUENCY:MONTHLY Resulting Agency Comment Specimen source: Blood Ernie Pompa MD LAB BLOOD ORDERABLES Performing Organization Address City/State/ZIP Code Phon e Number [facility] documented in this encounter Visit Diagnoses Not on filedocumented in this encounter
--- OUTSIDE RECORDS SUMMARY | 2021-11-11 09:38 | XMS_ITS | Encounter Summary ---
:1945 Author Organization [facility] Address [address] [place] [address] Care Team Providers Name Role Phone Unavailable Primary Care Provider Unavailable Encounter Details Date Type Department Care Team Description 01/29/2020 Treatment [facility] Ernie Gómez MD [address] [place] [address] [place], [place] [phone] [phone] (Wo rk) Social History Tobacco Use Types Packs/Day Years Used Date Smoking Tobacco: Unknown Comments: Smoking History Info:Patient n ot screened Sex Assigned at Date Recorded Not on file documented as of this encounter Miscellaneous Notes Dialysis Note - Ernie Pompa MD - 01/29/2020 9:56 AM CST Date: Jan 29, 2020 Patient Name: Shaun Ocampo : 1945 Chart #: [id number] Sex: M This patient was personally seen [...] AM ) BP (sit): 133/53 AP(-) / MILK BOTTLER: 267/328 Pulse: 71 Chairside data as of [...] Every 2 weeks During Dialysis 01/22/2020 01/20/2021 MORTGAGE LOAN COMPUTATION CLERK: Ernie Pompa MD LOCATION: [facility] [phone] SCHEDULE: M-W-F 2nd Shift ACCESS: EDW: kg. [...] (07/24/19) Vascular Access Assessment: Type of access: [id number]/2019 Surgeon - Lary GARDNER Access working well [...]
--- OUTSIDE RECORDS SUMMARY | 2021-11-11 09:38 | XMS_ITS | Encounter Summary ---
:1945 Author Organization [facility] Address [address] [place] [address] Care Team Providers Name Role Phone Unavailable Primary Care Provider Unavailable Encounter Details Date Type Department Care Team Description 06/10/2020 Orders Only [facility] O f Ernie Guzmán MD [address] [place] [address] [place], [place] [phone] (Wo rk) Social History Tobacco Use [...] 06/11/2020 Unless otherwise specified, test(s) performed at: [facility] [address] [place] [address] PALLIATIVE CARE NURSE: Alec Payan M.D. For any questions, please call customer service at FREQUENCY:OTHER Resulting Agency Comment Specimen source: Blood Ernie Pompa MD LAB BLOOD ORDERABLES Performing Organization Address City/State/ZIP Code Phon e Number [facility] documented in this encounter Visit Diagnoses Not on filedocumented in this encounter
--- OUTSIDE RECORDS SUMMARY | 2021-11-11 09:38 | XMS_ITS | Encounter Summary ---
:1945 Author Organization [facility] Address [address] [place] [address] Care Team Providers Name Role Phone Unavailable Primary Care Provider Unavailable Encounter Details Date Type Department Care Team Description 01/22/2020 Treatment [facility] Ernie Gómez MD [address] [place] [address] [place], [place] [phone] [phone] (Wo rk) Social History Tobacco Use Types Packs/Day Years Used Date Smoking Tobacco: Unknown Comments: Smoking History Info:Patient n ot screened Sex Assigned at Date Recorded Not on file documented as of this encounter Miscellaneous Notes Dialysis Note - Ernie Pompa MD - 01/22/2020 9:00 AM CST Date: Jan 22, 2020 Patient Name: Shaun Ocampo : 1945 Chart #: [id number] Sex: M This patient was personally seen [...] AM ) BP (sit): 139/67 AP(-) / ULTRASOUND SPECIALIST: n/a Pulse: 72 Chairside data as of [...] Every 2 weeks During Dialysis 01/22/2020 01/20/2021 MAILS SUPERVISOR: Ernie Pompa MD LOCATION: [facility] [phone] SCHEDULE: M-W-F 2nd Shift EDW: kg. DIALYZER: [...] He had infiltration last week, dialyzed at [facility] on Sat and went well, access [...] prescription. Vascular Access Assessment Type of access: [email or web address]/2019 Surgeon - Lary KUMARW Access working well [...] above goal. Intact PTH is at goal. Supervisor Title will adjust binders and vitamin D per [...]
--- OUTSIDE RECORDS SUMMARY | 2021-11-11 09:38 | XMS_ITS | Encounter Summary ---
:1945 Author Organization [facility] Address [address] [place] [address] Care Team Providers Name Role Phone Unavailable Primary Care Provider Unavailable Encounter Details Date Type Department Care Team Description 03/09/2020 Orders Only [facility] O f Ernie Guzmán MD [address] [place] [address] [place], [place] [phone] (Wo rk) Social History Tobacco Use [...] athologist Signature Hepatitis B <10 mIU/mL [facility]PS [place] Surface Ab [facility] Comment: Reference Range: <10 mIU/mL ? Non-Immune >=10 mIU/mL ?Immune The magnitude of the measured result abo ve 10 mIU/mL is not indicative of the total amount of antibody present. Custom Exception Specimen (Source) Anatomical Collection Method Collection Time Re ceived Time Location / / Volume Laterality 03/09/2020 03/10/2020 2:47 PM MANAGER SPECIALTY Narrative [facility] - 03/10/2020 Unless otherwise specified, test(s) performed at: [facility], [address] [place] [address] CLIENT BUSINESS MANAGER: Alec Payan M.D. For any questions, please call customer service at FREQUENCY:OTHER Resulting Agency Comment Specimen source: Serum Ernie Pompa MD LAB BLOOD ORDERABLES Performing Organization Address City/[facility]/ZIP Code Phon e Number [facility] (ABNORMAL) HEMATOLOGY (03/09/2020) Analysis Performed At Patho logist Time Signature Hemoglobin 10.6 (L) 14.0 - APS SPECTRA 18.0 g/dL [facility] Hemoglobin x 3 31.8 (L) 42.0 - APS SPECTRA 54.0 % [facility] Specimen (Source) Anatomical Collection Method Collection Time Re ceived Time Location / / Volume Laterality 03/09/2020 03/10/2020 12:1 4 PM MANAGER SPECIALTY Narrative [facility] - 03/10/2020 Unless otherwise specified, test(s) performed at: [facility], [address] [place] [address] CLIENT BUSINESS MANAGER: Alec Payan M.D. For any questions, please call customer service at FREQUENCY:OTHER Resulting Agency Comment Specimen source: Blood Ernie Pompa MD LAB BLOOD ORDERABLES Performing Organization Address City/State/ZIP Code Phon e Number [facility] documented in this encounter Visit Diagnoses Not on filedocumented in this encounter
--- OUTSIDE RECORDS SUMMARY | 2021-11-11 09:38 | XMS_ITS | Encounter Summary ---
:1945 Author Organization [facility] Address [address] [place] [address] Care Team Providers Name Role Phone Unavailable Primary Care Provider Unavailable Encounter Details Date Type Department Care Team Description 05/13/2020 Orders [facility] O f Ernie Guzmán MD [address] [place] [address] [place], [place] [phone] (Wo rk) Social History Tobacco Use [...] / Volume Laterality 05/13/2020 05/14/2020 3:41 PM CUT AND PRINT MACHINE OPERATOR Narrative [facility] - 05/14/2020 Unless otherwise specified, test(s) performed at: [facility], [address] [place] [address] CRIME SCENE ANALYST: Alec Payan M.D. For any questions, please call customer service at FREQUENCY:OTHER Resulting Agency Comment Specimen source: Blood Ernie Pompa MD LAB BLOOD ORDERABLES Performing Organization Address City/State/ZIP Code Phon e Number [facility] documented in this encounter Visit Diagnoses Not on filedocumented in this encounter
--- OUTSIDE RECORDS SUMMARY | 2021-11-11 09:38 | XMS_ITS | Encounter Summary ---
:1945 Author Organization [facility] Address [address] [place] [address] Care Team Providers Name Role Phone Unavailable Primary Care Provider Unavailable Encounter Details Date Type Department Care Team Description 05/27/2020 Orders Only [facility] O f Ernie Guzmán MD [address] [place] [address] [place], [place] [phone] (Wo rk) Social History Tobacco Use [...] / Volume Laterality 05/27/2020 05/28/2020 6:29 PM GRINDER SET UP OPERATOR INTERNAL Narrative [facility] - 05/28/2020 Unless otherwise specified, test(s) performed at: [facility], [address] [place] [address] SCHOOL AGE PROGRAM TEACHER: Alec Payan M.D. For any questions, please call customer service at FREQUENCY:OTHER Resulting Agency Comment Specimen source: Blood Ernie Pompa MD LAB BLOOD ORDERABLES Performing Organization Address City/State/ZIP Code Phon e Number [facility] documented in this encounter Visit Diagnoses Not on filedocumented in this encounter
--- OUTSIDE RECORDS SUMMARY | 2021-11-11 09:38 | XMS_ITS | Encounter Summary ---
:1945 Author Organization [facility] Address [address] [place] [address] Care Team Providers Name Role Phone Unavailable Primary Care Provider Unavailable Encounter Details Date Type Department Care Team Description 01/08/2020 Treatment [facility] Ernie Gómez MD [address] [place] [address] [place], [place] [phone] (Wo rk) Social History Tobacco Use Types Packs/Day Years Used Date Smoking Tobacco: Unknown Comments: Smoking History Info:Patient n ot screened Sex Assigned at Date Recorded Not on file documented as of this encounter Miscellaneous Notes Dialysis Note - Ernie Pompa MD - 01/08/2020 12:11 PM CDT Date: Jan 08, 2020 Patient Name: Shaun Ocampo : 1945 Chart #: [id number] Sex: M This patient was personally seen [...] PM ) BP (sit): 118/58 AP(-) / ENTERTAINMENT REPORTER: 261/204 Pulse: 66 Chairside data as of [...] IVP 1X Week During Dialysis 10/28/2019 10/19/2020 HVAC ENGINEER: Ernie Pompa MD LOCATION: [phone] SCHEDULE: -W- 2nd Shift ACCESS: EDW: kg. [...] had infiltration last week, dialyzed at [facility] on Sat and went well, access [...] (07/24/19) Vascular Access Assessment: Type of access: [id number]/2019 Surgeon - Lary GARDNER Access working well Impression and Plan No changes, stable dialysis Ernie Pompa MD [ Signed And locked electronically On 01/08/2020 at 12:12:00 PM ] Transcribed: Ernie Pompa ( 01/08/2020 ) documented in this encounter Plan of Treatment Not on filedocumented as of this encounter Visit Diagnoses Not on filedocumented in this encounter
--- OUTSIDE RECORDS SUMMARY | 2021-11-11 09:39 | XMS_ITS | Encounter Summary ---
:1945 Author Organization [facility] Address [address] [place] [address] Care Team Providers Name Role Phone Unavailable Primary Care Provider Unavailable Encounter Details Date Type Department Care Team Description 12/25/2019 Orders Only [facility] O f Ernie Guzmán MD [address] [place] [address] [place], [place] [phone] (Wo rk) Social History Tobacco Use [...] 12/27/2019 Unless otherwise specified, test(s) performed at: [facility], [address] [place] [address] BEE FARMER: Alec Payan M.D. For any questions, please call customer service at FREQUENCY:MONTHLY Resulting Agency Comment Specimen source: Plasma Ernie Pompa MD LAB BLOOD ORDERABLES Performing Organization Address City/[facility] Phon e Number [facility]PS S[facility]RA [facility] IMMUNO CHEMISTRY (12/25/2019) P athologist Signature Hep B Surface Negative Negative [facility]PS SPECTRA Ag [facility] Specimen (Source) Anatomical Collection Method Collection Time Re ceived Time Location / / Volume Laterality 12/25/2019 12/26/2019 5:50 PM CDT Narrative [facility] - 12/27/2019 Unless otherwise specified, test(s) performed at: [facility], [address] [place] [address] BEE FARMER: Alec Payan M.D. For any questions, please call customer service at FREQUENCY:MONTHLY Resulting Agency Comment Specimen source: Serum Ernie Pompa MD LAB BLOOD ORDERABLES Performing Organization Address [facility] Phon e Number [facility]PS S[facility]RA [facility] (ABNORMAL) POST CHEMISTRY (12/25/2019) P athologist Signature BUN Post <2 (L) 6 - 19 APS SPECTRA Dialysis mg/dL [facility] Comment: Verified by repeat analysis. Specimen (Source) Anatomical Collection Method Collection Time Re ceived Time Location / / Volume Laterality 12/25/2019 12/26/2019 7:48 PM CDT Narrative [facility] - 12/27/2019 Unless otherwise specified, test(s) performed at: [facility], [address] [place] [address] BEE FARMER: Alec Payan M.D. For any questions, please call customer service at FREQUENCY:MONTHLY Resulting Agency Comment Specimen source: Plasma Ernie Pompa MD LAB BLOOD ORDERABLES Performing Organization Address City/[facility] Phon e Number APS SPECTRA [facility] [...] 12/27/2019 Unless otherwise specified, test(s) performed at: [facility], [address] [place] [address] BEE FARMER: Alec Payan M.D. For any questions, please [...] 12/27/2019 Unless otherwise specified, test(s) performed at: [facility], [address] [place] [address] BEE FARMER: Alec Payan M.D. For any questions, please call customer service at FREQUENCY:MONTHLY Resulting Agency Comment Specimen source: Blood Ernie Pompa MD LAB BLOOD ORDERABLES Performing Organization Address City/[facility]/ZIP Code Phon e Number [facility] documented in this encounter Visit Diagnoses Not on filedocumented in this encounter
--- OUTSIDE RECORDS SUMMARY | 2021-11-11 09:39 | XMS_ITS | Encounter Summary ---
:1945 Author Organization [facility] Address [address] [place] [address] Care Team Providers Name Role Phone Unavailable Primary Care Provider Unavailable Encounter Details Date Type Department Care Team Description 11/06/2019 Orders Only [facility] O f Ernie Guzmán MD [address] [place] [address] [place], [place] [phone] (Wo rk) Social History Tobacco Use [...] in this encounter Results (ABNORMAL) HEMATOLOGY (11/06/2019) [facility] gist Method Time Signature Neutrophils 75.2 [...] 11/07/2019 Unless otherwise specified, test(s) performed at: [facility], [address] [place] [address] POLL WATCHER: Alec Payan M.D. For any questions, please call customer service at FREQUENCY:OTHER Resulting Agency Comment Specimen source: Blood Ernie Pompa MD LAB BLOOD ORDERABLES Performing Organization Address City/State/ZIP Code Phon e Number [facility]RA [facility] documented in this encounter Visit Diagnoses Not on filedocumented in this encounter
--- OUTSIDE RECORDS SUMMARY | 2021-11-11 09:39 | XMS_ITS | Encounter Summary ---
:1945 Author Organization [facility] Address [address] [place] [address] Care Team Providers Name Role Phone Unavailable Primary Care Provider Unavailable Encounter Details Date Type Department Care Team Description 09/25/2019 Orders [facility] O f Ernie Guzmán MD [address] [place] [address] [place], [place] [phone] (Wo rk) Social History Tobacco Use [...] in this encounter Results (ABNORMAL) HEMATOLOGY (09/25/2019) [facility] gist Method Time Signature Neutrophils 74.2 [...] 09/26/2019 Unless otherwise specified, test(s) performed at: [facility], [address] [place], [place] [id number] BOBBIN HANDLER: Alec Payan M.D. For any questions, please call customer service at FREQUENCY:OTHER Resulting Agency Comment Specimen source: Blood Ernie Pompa MD LAB BLOOD ORDERABLES Performing Organization Address City/State/ZIP Code Phon e Number [facility]RA [facility] documented in this encounter Visit Diagnoses Not on filedocumented in this encounter
--- OUTSIDE RECORDS SUMMARY | 2021-11-11 09:39 | XMS_ITS | Encounter Summary ---
:1945 Author Organization [facility] Address [address] [place] [address] Care Team Providers Name Role Phone Unavailable Primary Care Provider Unavailable Encounter Details Date Type Department Care Team Description 10/09/2019 Treatment [facility] Ernie Gómez MD [address] [place] [address] [place], [place] [phone] [phone] (Wo rk) Social History Tobacco Use Types Packs/Day Years Used Date Smoking Tobacco: Unknown Comments: Smoking History Info:Patient n ot screened Sex Assigned at Date Recorded Not on file documented as of this encounter Miscellaneous Notes Dialysis Note - Ernie Pompa MD - 10/09/2019 12:54 PM CDT Date: Oct 09, 2019 Patient Name: Shaun Ocampo : 1945 Chart #: [id number] Sex: M This patient was personally seen [...] PM ) BP (sit): 135/54 AP(-) / SENIOR STOCK PLAN ADMINISTRATOR: 204/180 Pulse: 65 Chairside data as of [...] 1000 units IVP Every Treatment 05/01/2019 04/29/2020 TECHNICAL SERVICE REPRESENTATIVE: Ernie Pompa MD LOCATION: [phone] SCHEDULE: M-W- 2nd Shift ACCESS: EDW: kg. [...] had infiltration last week, dialyzed at [facility] on Sat and went well, [...] (06/19/19) Vascular Access Assessment: Type of access: [id number]/2019 Surgeon - Lary GARDNER Access working well [...]
--- OUTSIDE RECORDS SUMMARY | 2021-11-11 09:39 | XMS_ITS | Encounter Summary ---
:1945 Author Organization [facility] Address [address] [place] [address] Care Team Providers Name Role Phone Unavailable Primary Care Provider Unavailable Encounter Details Date Type Department Care Team Description 10/23/2019 [facility] O f Ernie Guzmán MD [phone] [place] [address] [place], [place] [phone] (Wo rk) Social History Tobacco Use [...] 10/25/2019 Unless otherwise specified, test(s) performed at: [facility], [address] [place] [address] GEODETIC ENGINEER: Alec Payan M.D. For any questions, please call customer service at FREQUENCY:MONTHLY Resulting Agency Comment Specimen source: Serum Ernie Pompa MD LAB BLOOD ORDERABLES Performing Organization Address City/State/ZIP Code Phon e Number APS SPECTRA [facility] (ABNORMAL) HEMATOLOGY (10/23/2019) [facility] gist Method Time Signature WBC 6.46 4.80 [...] 10/24/2019 Unless otherwise specified, test(s) performed at: [facility], [address] [place] [address] GEODETIC ENGINEER: Alec Payan M.D. For any questions, please call customer service at FREQUENCY:MONTHLY Resulting Agency Comment Specimen source: Blood Ernie Pompa MD LAB BLOOD ORDERABLES Performing Organization Address City/State/ZIP Code Phon e Number APS SPECTRA [facility] documented in this encounter Visit Diagnoses Not on filedocumented in this encounter
--- OUTSIDE RECORDS SUMMARY | 2021-11-11 09:39 | XMS_ITS | Encounter Summary ---
:1945 Author Organization [facility] Address [address] [place] [address] Care Team Providers Name Role Phone Unavailable Primary Care Provider Unavailable Encounter Details Date Type Department Care Team Description 11/20/2019 [facility] O f Ernie Guzmán MD [address] [place] [address] [place], [place] [phone] (Wo rk) Social History Tobacco Use [...] City/[facility]/ZIP Code Phon e Number APS SPECTRA [facility] [place] CHEMISTRY (11/20/2019) athologist Signature BUN [place] 12 6 - 19 APS SPECTRA Dialysis mg/dL [facility] Specimen (Source) Anatomical Collection Method Collection Time Re ceived Time Location / / Volume Laterality 11/20/2019 11/21/2019 1:14 PM CDT Narrative APS SPECTRA [facility] - 11/21/2019 Unless otherwise specified, test(s) performed at: [facility], [address] [place] [address] GEOSPATIAL SPECIALIST: Alec Payan M.D. For any questions, please call customer service at FREQUENCY:MONTHLY Resulting Agency Comment Specimen source: Plasma Ernie Pompa MD LAB BLOOD ORDERABLES Performing Organization Address City/[facility]/ZIP Code Phon e Number APS SPECTRA [...] APS SPECTRA [facility] (ABNORMAL) Spectrae Chemistry [facility]/20/2019[facility] Signature BUN 51 (H) [...] 11/21/2019 Unless otherwise specified, test(s) performed at: [facility], [address] [place] [address] GEOSPATIAL SPECIALIST: Alec Payan M.D. For any questions, please call customer service at FREQUENCY:MONTHLY Resulting Agency Comment Specimen source: Serum Ernie Pompa MD LAB BLOOD ORDERABLES Performing Organization Address City/State/ZIP Code Phon e Number APS SPECTRA [facility] (ABNORMAL) HEMATOLOGY (11/20/2019) [facility] gist Method Time Signature WBC 6.23 [...] 11/21/2019 Unless otherwise specified, test(s) performed at: [facility], [address] [place] [address] GEOSPATIAL SPECIALIST: Alec Payan M.D. For any questions, please call customer service at FREQUENCY:MONTHLY Resulting Agency Comment Specimen source: Blood Ernie Pompa MD LAB BLOOD ORDERABLES Performing Organization Address City/State/ZIP Code Phon e Number APS SPECTRA [facility] documented in this encounter Visit Diagnoses Not on filedocumented in this encounter
--- OUTSIDE RECORDS SUMMARY | 2021-11-11 09:39 | XMS_ITS | Encounter Summary ---
:1945 Author Organization [facility] Address [address] [place] [address] Care Team Providers Name Role Phone Unavailable Primary Care Provider Unavailable Encounter Details Date Type Department Care Team Description 11/27/2019 Orders Only [facility] O f Ernie Guzmán MD [address] [place] [address] [place], [place] [phone] (Wo rk) Social History Tobacco Use [...] in this encounter Results (ABNORMAL) HEMATOLOGY (11/27/2019) [facility] gist Method Time Signature Neutrophils 77.3 [...] 11/29/2019 Unless otherwise specified, test(s) performed at: [facility], [address] [place] [address] FREIGHT TRAFFIC CONSULTANT: Alec Payan M.D. For any questions, please call customer service at FREQUENCY:OTHER Resulting Agency Comment Specimen source: Blood Ernie Pompa MD LAB BLOOD ORDERABLES Performing Organization Address City/State/ZIP Code Phon e Number APS SPECTRA [facility] documented in this encounter Visit Diagnoses Not on filedocumented in this encounter
--- OUTSIDE RECORDS SUMMARY | 2021-11-11 09:39 | XMS_ITS | Encounter Summary ---
:1945 Author Organization [facility] Address [address] [place] [address] Care Team Providers Name Role Phone Unavailable Primary Care Provider Unavailable Encounter Details Date Type Department Care Team Description 10/09/2019 Orders [facility] O f Ernie Guzmán MD [phone] [place] [address] [place], [place] [phone] (Wo rk) Social History Tobacco Use [...] 10/10/2019 Unless otherwise specified, test(s) performed at: [facility], [address] [place] [address] [address] SIGN INSTALLER: Alec Payan M.D. For any questions, [...] 10/10/2019 Unless otherwise specified, test(s) performed at: [facility], [address] [place] [address] SIGN INSTALLER: Alec Payan M.D. For any questions, please call customer service at FREQUENCY:OTHER Resulting Agency Comment Specimen source: Blood Ernie Pompa MD LAB BLOOD ORDERABLES Performing Organization Address City/[facility] Code Phon e Number APS SPECTRA [facility] documented in this encounter Visit Diagnoses Not on filedocumented in this encounter
--- OUTSIDE RECORDS SUMMARY | 2021-11-11 09:39 | XMS_ITS | Encounter Summary ---
:1945 Author Organization [facility] Address [address] [place] [address] Care Team Providers Name Role Phone Unavailable Primary Care Provider Unavailable Encounter Details Date Type Department Care Team Description 12/18/2019 Orders [facility] O f Ernie Guzmán MD [address] [place] [address] [place], [place] [phone] (Wo rk) Social History Tobacco Use [...] 12/19/2019 Unless otherwise specified, test(s) performed at: [facility], [address] [place] [address] CAMPGROUND CLEANING ATTENDANT: Alec Payan M.D. For any questions, please call customer service at FREQUENCY:OTHER Resulting Agency Comment Specimen source: Blood Ernie Pompa MD LAB BLOOD ORDERABLES Performing Organization Address City/State/ZIP Code Phon e Number APS SPECTRA [facility] documented in this encounter Visit Diagnoses Not on filedocumented in this encounter
--- OUTSIDE RECORDS SUMMARY | 2021-11-11 09:39 | XMS_ITS | Encounter Summary ---
:1945 Author Organization [facility] Address [address] [place] [address] Care Team Providers Name Role Phone Unavailable Primary Care Provider Unavailable Encounter Details Date Type Department Care Team Description 10/02/2019 [facility] O f Ernie Guzmán MD [address] [place] [address] [place], [place] [phone] (Wo rk) Social History Tobacco Use [...] in this encounter Results (ABNORMAL) HEMATOLOGY (10/02/2019) [facility] gist Method Time Signature Neutrophils 74.2 [...] 10/03/2019 Unless otherwise specified, test(s) performed at: [facility], [address] [place] [address] DIRECTOR RELIGIOUS EDUCATION: Alec Payan M.D. For any questions, please call customer service at FREQUENCY:OTHER Resulting Agency Comment Specimen source: Blood Ernie Pompa MD LAB BLOOD ORDERABLES Performing Organization Address City/State/ZIP Code Phon e Number APS SPECTRA [facility] documented in this encounter Visit Diagnoses Not on filedocumented in this encounter
--- OUTSIDE RECORDS SUMMARY | 2021-11-11 09:39 | XMS_ITS | Encounter Summary ---
:1945 Author Organization [facility] Address [address] [place] [address] Care Team Providers Name Role Phone Unavailable Primary Care Provider Unavailable Encounter Details Date Type Department Care Team Description 12/04/2019 Treatment [facility] O Ernie Gómez MD [address] [place] [address] [place], [place] [phone] [phone] (Wo rk) Social History Tobacco Use Types Packs/Day Years Used Date Smoking Tobacco: Unknown Comments: Smoking History Info:Patient n ot screened Sex Assigned at Date Recorded Not on file documented as of this encounter Miscellaneous Notes Dialysis Note - Ernie Pompa MD - 12/04/2019 12:16 PM CDT Date: Dec 04, 2019 Patient Name: Shaun Ocampo : 1945 Chart #: [id number] Sex: M This patient was personally seen [...] Every 2 weeks During Dialysis 11/27/2019 11/25/2020 [employer] POLICE OFFICER: Ernie Pompa MD LOCATION: [phone] SCHEDULE: -- 2nd Shift ACCESS: EDW: kg. [...] He had infiltration last week, dialyzed at [facility] on Sat and went well, [...] (06/19/19) Vascular Access Assessment: Type of access: [id number]/2019 Surgeon - Lary KUMARW Access working well [...]
--- OUTSIDE RECORDS SUMMARY | 2021-11-11 09:39 | XMS_ITS | Encounter Summary ---
:1945 Author Organization [facility] Address [address] [place] [address] Care Team Providers Name Role Phone Unavailable Primary Care Provider Unavailable Encounter Details Date Type Department Care Team Description 11/04/2019 Orders Only [facility] O f Ernie Guzmán MD [address] [place] [address] [place], [place] [phone] (Wo rk) Social History Tobacco Use [...] in this encounter Results (ABNORMAL) HEMATOLOGY (11/04/2019) [facility] gist Method Time Signature Neutrophils 77.4 [...] 11/05/2019 Unless otherwise specified, test(s) performed at: [facility], [address] [place] [address] REGISTERED PHARMACY TECHNICIAN: Alec Payan M.D. For any questions, please call customer service at FREQUENCY:OTHER Resulting Agency Comment Specimen source: Blood Ernie Pompa MD LAB BLOOD ORDERABLES Performing Organization Address City/State/ZIP Code Phon e Number APS SPECTRA [facility] documented in this encounter Visit Diagnoses Not on filedocumented in this encounter
--- OUTSIDE RECORDS SUMMARY | 2021-11-11 09:39 | XMS_ITS | Encounter Summary ---
:1945 Author Organization [facility] Address [address] [place] [address] Care Team Providers Name Role Phone Unavailable Primary Care Provider Unavailable Encounter Details Date Type Department Care Team Description 09/25/2019 Treatment [facility] O Ernie Gómez MD [address] [place] [address] [place], [place] [phone] [phone] (Wo rk) Social History Tobacco Use Types Packs/Day Years Used Date Smoking Tobacco: Unknown Comments: Smoking History Info:Patient n ot screened Sex Assigned at Date Recorded Not on file documented as of this encounter Miscellaneous Notes Dialysis Note - Ernie Pompa MD - 09/25/2019 10:54 AM CDT Date: Sep 25, 2019 Patient Name: Shaun Ocampo : 1945 Chart #: [id number] Sex: M This patient was personally seen [...] AM ) BP (sit): 156/55 AP(-) / OPERATIONS ARCHITECT: 212/172 Pulse: 63 Chairside data as of [...] 08/23/2019 08/02/2019 Access Flow > 2000 1510 PARTY PLAN SALES HOST/HOSTESS: Ernie Pompa MD LOCATION: [place] [phone] SCHEDULE: -- 2nd Shift EDW: kg. DIALYZER: HD DURATION: NEEDLE SIZE: ANTICOAG: BATH: QB: ml/min QD: ml/min Subjective Tolerating dialysis well. 09/24: He had infiltration last week, dialyzed at [facility] on Sat and went well, access [...] prescription. Vascular Access Assessment Type of access: [id number]/2019 Surgeon Annita KUMARW Access working well Anemia [...] at goal. Intact PTH is below goal. Exhibit Carpenter will adjust binders and vitamin D per [...]
--- OUTSIDE RECORDS SUMMARY | 2021-11-11 09:39 | XMS_ITS | Encounter Summary ---
:1945 Author Organization [facility] Address [address] [place] [address] Care Team Providers Name Role Phone Unavailable Primary Care Provider Unavailable Encounter Details Date Type Department Care Team Description 10/28/2019 Orders Only [facility] O f Ernie Guzmán MD [address] [place] [address] [place], [place] [phone] (Wo rk) Social History Tobacco Use [...] LAB BLOOD ORDERABLES Performing Organization Address City/[facility] Phon e Number APS SPECTRA [facility] [place] CHEMISTRY (10/28/2019) P athologist Signature BUN [place] 13 6 - 19 APS SPECTRA Dialysis mg/dL [facility] Specimen (Source) Anatomical Collection Method Collection Time Re ceived Time Location / / Volume Laterality 10/28/2019 10/31/2019 3:11 PM CDT Narrative APS SPECTRA [facility] - 10/31/2019 Unless otherwise specified, test(s) performed at: [facility], [address] [place] [address] LIBRARY ATTENDANT: Alec Payan M.D. For any questions, please call customer service at FREQUENCY:OTHER Resulting Agency Comment Specimen source: Plasma Ernie Pompa MD LAB BLOOD ORDERABLES Performing Organization Address [facility] Phon e Number APS SPECTRA [facility] (ABNORMAL) Spectrae Chemistry (10/28/2019) P athologist Signature BUN 54 (H) 6 - 19 APS SPECTRA mg/dL [facility] Specimen (Source) Anatomical Collection Method Collection Time Re ceived Time Location / / Volume Laterality 10/28/2019 10/29/2019 4:43 PM CDT Narrative APS SPECTRA [facility] - 10/29/2019 Unless otherwise specified, test(s) performed at: [facility], [address] [place] [address] LIBRARY ATTENDANT: Alec Payan M.D. For any questions, please call customer service at FREQUENCY:OTHER Resulting Agency Comment Specimen source: Serum Ernie Pompa MD LAB BLOOD ORDERABLES Performing Organization Address [facility] Phon e Number APS SPECTRA [facility] documented in this encounter Visit Diagnoses Not on filedocumented in this encounter
--- OUTSIDE RECORDS SUMMARY | 2021-11-11 09:39 | XMS_ITS | Encounter Summary ---
:1945 Author Organization [facility] Address [address] [place] [address] Care Team Providers Name Role Phone Unavailable Primary Care Provider Unavailable Encounter Details Date Type Department Care Team Description 11/13/2019 Orders [facility] O f Ernie Guzmán MD [address] [place] [address] [place], [place] [phone] (Wo rk) Social History Tobacco Use [...] 11/14/2019 Unless otherwise specified, test(s) performed at: [facility], [address] [place] [address] GREASE AND TALLOW PUMPER: Alec Payan M.D. For any questions, please [...] 11/14/2019 Unless otherwise specified, test(s) performed at: [facility], [address] [place] [address] GREASE AND TALLOW PUMPER: Alec Payan M.D. For any questions, please call customer service at FREQUENCY:OTHER Resulting Agency Comment Specimen source: Blood Ernie Pompa MD LAB BLOOD ORDERABLES Performing Organization Address City/[facility] Phon e Number APS SPECTRA [facility] documented in this encounter Visit Diagnoses Not on filedocumented in this encounter
--- OUTSIDE RECORDS SUMMARY | 2021-11-11 09:39 | XMS_ITS | Encounter Summary ---
:1945 Author Organization [facility] Address [address] [place] [address] Care Team Providers Name Role Phone Unavailable Primary Care Provider Unavailable Encounter Details Date Type Department Care Team Description 10/16/2019 Orders [facility] O f Ernie Guzmán MD [address] [place] [address] [place], [place] [phone] (Wo rk) Social History Tobacco Use [...] in this encounter Results (ABNORMAL) HEMATOLOGY (10/16/2019) [facility] gist Method Time Signature Neutrophils 74.6 40.0 [...] 10/17/2019 Unless otherwise specified, test(s) performed at: [facility], [address] [place] [address] ASSESSMENT MANAGER: Alec Payan M.D. For any questions, please call customer service at FREQUENCY:OTHER Resulting Agency Comment Specimen source: Blood Ernie oPmpa MD LAB BLOOD ORDERABLES Performing Organization Address City/State/ZIP Code Phon e Number APS SPECTRA [facility] documented in this encounter Visit Diagnoses Not on filedocumented in this encounter
--- OUTSIDE RECORDS SUMMARY | 2021-11-11 09:39 | XMS_ITS | Encounter Summary ---
:1945 Author Organization [facility] Address [address] [place] [address] Care Team Providers Name Role Phone Unavailable Primary Care Provider Unavailable Encounter Details Date Type Department Care Team Description 12/04/2019 Orders Only [facility] O f Ernie Guzmán MD [address] [place] [address] [place], [place] [phone] (Wo rk) Social History Tobacco Use [...] 12/05/2019 Unless otherwise specified, test(s) performed at: [facility], [address] [place] [address] EDGERMAN: Alec Payan M.D. For any questions, please [...] 12/05/2019 Unless otherwise specified, test(s) performed at: [facility], [address] [place] [address] EDGERMAN: Alec Payan M.D. For any questions, please call customer service at FREQUENCY:OTHER Resulting Agency Comment Specimen source: Blood Ernie Pompa MD LAB BLOOD ORDERABLES Performing Organization Address City/[facility] Code Phon e Number APS SPECTRA [facility] documented in this encounter Visit Diagnoses Not on filedocumented in this encounter
--- OUTSIDE RECORDS SUMMARY | 2021-11-11 09:39 | XMS_ITS | Encounter Summary ---
:1945 Author Organization [facility] Address [address] [place] [address] [place] [address] Care Team Providers Name Role Phone Unavailable Primary Care Provider Unavailable Encounter Details Date Type Department Care Team Description 11/20/2019 Treatment [facility] O Ernie Gómez MD [address] [place] [address] [place], [place] [phone] [phone] (Wo rk) Social History Tobacco Use Types Packs/Day Years Used Date Smoking Tobacco: Unknown Comments: Smoking History Info:Patient n ot screened Sex Assigned at Date Recorded Not on file documented as of this encounter Miscellaneous Notes Dialysis Note - Ernie Pompa MD - 11/20/2019 11:34 AM CDT Date: Nov 20, 2019 Patient Name: Shaun Ocampo : 1945 Chart #: [id number] Sex: M This patient was personally seen [...] AM ) BP (sit): 126/49 AP(-) / EMS COORDINATOR: 230/186 Pulse: 64 Chairside data as of [...] 08/23/2019 Access Flow 1011 1591 > 2000 DIRECTOR MARKETING ANALYTICS: Ernie Pompa MD LOCATION: [place] [phone] SCHEDULE: -W- 2nd Shift EDW: kg. DIALYZER: [...] He had infiltration last week, dialyzed at [facility] on Sat and went well, access [...] prescription. Vascular Access Assessment Type of access: [id number]/2019 Surgeon - Lary GARDNER Access working well [...] above goal. Intact PTH is below goal. Specialty Molder will adjust binders and vitamin D per [...]
--- OUTSIDE RECORDS SUMMARY | 2021-11-11 09:39 | XMS_ITS | Encounter Summary ---
:1945 Author Organization [facility] Address [address] [place] [address] Care Team Providers Name Role Phone Unavailable Primary Care Provider Unavailable Encounter Details Date Type Department Care Team Description 12/25/2019 Treatment [facility] O Ernie Gómez MD [address] [place] [address] [place], [place] [address] [phone] (Wo rk) Social History Tobacco Use Types Packs/Day Years Used Date Smoking Tobacco: Unknown Comments: Smoking History Info:Patient n ot screened Sex Assigned at Date Recorded Not on file documented as of this encounter Miscellaneous Notes Dialysis Note - Ernie Pompa MD - 12/25/2019 11:33 AM CDT Date: Dec 25, 2019 Patient Name: Shaun Ocampo : 1945 Chart #: [id number] Sex: M This patient was personally seen [...] AM ) BP (sit): 118/50 AP(-) / BAND TACKER: 258/222 Pulse: 64 Chairside data as of [...] Access Flow > 2000 > 2000 1011 MAIL PROCESSING EQUIPMENT MECHANIC: Ernie Pompa MD LOCATION: [place] [phone] SCHEDULE: M-W- 2nd Shift EDW: kg. DIALYZER: [...] He had infiltration last week, dialyzed at [facility] on Sat and went well, access [...] prescription. Vascular Access Assessment Type of access: [id number]/2019 Surgeon Annita KUMARW Access working well Anemia [...] above goal. Intact PTH is below goal. Finance Broker will adjust binders and vitamin D per [...]
--- OUTSIDE RECORDS SUMMARY | 2021-11-11 09:39 | XMS_ITS | Encounter Summary ---
:1945 Author Organization [facility] Address [address] [place] [address] Care Team Providers Name Role Phone Unavailable Primary Care Provider Unavailable Encounter Details Date Type Department Care Team Description 11/06/2019 Treatment [facility] O Ernie Gómez MD [address] [place] [address] [place], [place] [phone] [phone] (Wo rk) Social History Tobacco Use Types Packs/Day Years Used Date Smoking Tobacco: Unknown Comments: Smoking History Info:Patient n ot screened Sex Assigned at Date Recorded Not on file documented as of this encounter Miscellaneous Notes Dialysis Note - Ernie Pompa MD - 11/06/2019 12:22 PM CDT Date: Nov 06, 2019 Patient Name: Shaun Ocampo : 1945 Chart #: [id number] Sex: M This patient was personally seen [...] PM ) BP (sit): 139/63 AP(-) / PAPER MILL MANAGER: 235/181 Pulse: 64 Chairside data as of [...] IVP 1X Week During Dialysis 10/28/2019 10/19/2020 SALES SUPPORT REP: Ernie Pompa MD LOCATION: [phone] SCHEDULE: M-W- 2nd Shift EDW: kg. DIALYZER: [...] had infiltration last week, dialyzed at [facility] on Sat and went well, [...] prescription. Vascular Access Assessment Type of access: [id number]/2019 Surgeon - Lary KUMARW Access working well [...] above goal. Intact PTH is below goal. Executive Officer Special Warfare Team will adjust binders and vitamin D per [...]
--- OUTSIDE RECORDS SUMMARY | 2021-11-11 09:39 | XMS_ITS | Encounter Summary ---
:1945 Author Organization [facility] Address [address] [place] [address] Care Team Providers Name Role Phone Unavailable Primary Care Provider Unavailable Encounter Details Date Type Department Care Team Description 12/11/2019 Orders Only [facility] O f Ernie Guzmán MD [address] [place] [address] [place], [place] [phone] (Wo rk) Social History Tobacco Use [...] 12/12/2019 Unless otherwise specified, test(s) performed at: [facility], [address] [place] [address] FREIGHT AND PASSENGER AGENT: Alec Payan M.D. For any questions, please call customer service at FREQUENCY:OTHER Resulting Agency Comment Specimen source: Blood Ernie Pompa MD LAB BLOOD ORDERABLES Performing Organization Address City/State/ZIP Code Phon e Number [facility] documented in this encounter Visit Diagnoses Not on filedocumented in this encounter
--- OUTSIDE RECORDS SUMMARY | 2021-11-11 09:40 | XMS_ITS | Encounter Summary ---
:1945 Author Organization [facility] Address [address] [place] [address] Care Team Providers Name Role Phone Unavailable Primary Care Provider Unavailable Encounter Details Date Type Department Care Team Description 07/10/2019 [facility] O f Ernie Guzmán MD [address] [place] [address] [place], [place] [phone] (Wo rk) Social History Tobacco Use [...] 07/11/2019 Unless otherwise specified, test(s) performed at: [facility], [address] [place] [address] REGISTERED NURSES: Alec Payan M.D. For any questions, please call customer service at FREQUENCY:OTHER Resulting Agency Comment Specimen source: Blood Ernie Pompa MD LAB BLOOD ORDERABLES Performing Organization Address City/State/ZIP Code Phon e Number [facility] documented in this encounter Visit Diagnoses Not on filedocumented in this encounter
--- OUTSIDE RECORDS SUMMARY | 2021-11-11 09:40 | XMS_ITS | Encounter Summary ---
:1945 Author Organization [facility] Address [address] [place] [address] Care Team Providers Name Role Phone Unavailable Primary Care Provider Unavailable Encounter Details Date Type Department Care Team Description 07/31/2019 [facility] O f Ernie Guzmán MD [address] [place] [address] [place], [place] [phone] (Wo rk) Social History Tobacco Use [...] 08/01/2019 Unless otherwise specified, test(s) performed at: [facility], [address] [place] [address] HAND BUFFING WHEEL FORMER: Alec Payan M.D. For any questions, please call customer service at FREQUENCY:OTHER Resulting Agency Comment Specimen source: Blood Ernie Pompa MD LAB BLOOD ORDERABLES Performing Organization Address City/State/ZIP Code Phon e Number [facility] documented in this encounter Visit Diagnoses Not on filedocumented in this encounter
--- OUTSIDE RECORDS SUMMARY | 2021-11-11 09:40 | XMS_ITS | Encounter Summary ---
:1945 Author Organization [facility] Address [address] [place] [address] Care Team Providers Name Role Phone Unavailable Primary Care Provider Unavailable Encounter Details Date Type Department Care Team Description 07/17/2019 [facility] O f Ernie Guzmán MD [address] [place] [address] [place], [place] [phone] (Wo rk) Social History Tobacco Use [...] 07/18/2019 Unless otherwise specified, test(s) performed at: [facility], [address] [place] [address] SWING SAW OPERATOR: Alec Payan M.D. For any questions, please call customer service at FREQUENCY:OTHER Resulting Agency Comment Specimen source: Blood Ernie Pompa MD LAB BLOOD ORDERABLES Performing Organization Address City/State/ZIP Code Phon e Number [facility] documented in this encounter Visit Diagnoses Not on filedocumented in this encounter
--- OUTSIDE RECORDS SUMMARY | 2021-11-11 09:40 | XMS_ITS | Encounter Summary ---
:1945 Author Organization [facility] Address [address] [place] [address] Care Team Providers Name Role Phone Unavailable Primary Care Provider Unavailable Encounter Details Date Type Department Care Team Description 08/07/2019 Treatment [facility] O f Ernie Guzmán MD [address] [place] [address] [place], [place] [phone] (Wo rk) Social History Tobacco Use Types Packs/Day Years Used Date Smoking Tobacco: Unknown Comments: Smoking History Info:Patient n ot screened Sex Assigned at Date Recorded Not on file documented as of this encounter Miscellaneous Notes Dialysis Note - Ernie Pompa MD - 08/07/2019 5:40 PM CDT Date: August 07, 2019 Patient Name: Shaun Ocampo : 1945 Chart #: [id number] Sex: M This patient was personally seen for a complete visit as part of routine monthly dialysis care. A review of the dialysis treatment, blood pressure, estimated dry weight and recent lab values was made. These were discussed with the patient and staff as necessary. CONCRETE BUSTER OPERATOR: Ernie Pompa MD LOCATION: [phone] SCHEDULE: M-W-F 2nd Shift EDW: kg. DIALYZER: [...] adequacy Vascular Access Assessment Type of access: Uiociun51/2019 Surgeon - Lary GARDNER Access working well [...] at goal. Intact PTH is below goal. Glass Belt Sander will adjust binders and vitamin D per [...]
--- OUTSIDE RECORDS SUMMARY | 2021-11-11 09:40 | XMS_ITS | Encounter Summary ---
:1945 Author Organization [facility] Address [address] [place] [address] Care Team Providers Name Role Phone Unavailable Primary Care Provider Unavailable Encounter Details Date Type Department Care Team Description 07/29/2019 Orders [facility] O f Ernie Guzmná MD [address] [place] [address] [place], [place] [phone] (Wo rk) Social History Tobacco Use [...] 07/30/2019 Unless otherwise specified, test(s) performed at: [facility], [address] [place] [address] INTERNAL COMBUSTION ENGINE SUBASSEMBLER: Alec Payan M.D. For any questions, please call customer service at FREQUENCY:OTHER Resulting Agency Comment Specimen source: Serum Ernie Pompa MD LAB BLOOD ORDERABLES Performing Organization Address City/State/ZIP Code Phon e Number [facility] documented in this encounter Visit Diagnoses Not on filedocumented in this encounter
--- OUTSIDE RECORDS SUMMARY | 2021-11-11 09:40 | XMS_ITS | Encounter Summary ---
:1945 Author Organization [facility] Address [address] [place] [address] Care Team Providers Name Role Phone Unavailable Primary Care Provider Unavailable Encounter Details Date Type Department Care Team Description 09/18/2019 Orders [facility] O f Ernie Guzmán MD [phone] [place] [address] [place], [place] [phone] (Wo rk) Social History Tobacco Use [...] 09/20/2019 Unless otherwise specified, test(s) performed at: [facility], [address] [place] [address] COLORIST DYER: Alec Payan M.D. For any questions, please call customer service at FREQUENCY:MONTHLY Resulting Agency Comment Specimen source: Plasma Ernie Pompa MD LAB BLOOD ORDERABLES Performing Organization Address City/[facility]/ZIP Code Phon e Number APS [...] 09/19/2019 Unless otherwise specified, test(s) performed at: [facility], [address] [employer], [place] [id number] COLORIST DYER: Alec Payan M.D. For any questions, please call customer service at FREQUENCY:MONTHLY Resulting Agency Comment Specimen source: Plasma Ernie Pompa MD LAB BLOOD ORDERABLES Performing Organization Address City/[facility]/ZIP Code Phon e Number [facility] IMMUNO CHEMISTRY (09/18/2019) athologist Signature Hep B Surface Negative Negative APS SPECTRA Ag [facility] Specimen (Source) Anatomical Collection Method Collection Time Re ceived Time Location / / Volume Laterality 09/18/2019 09/19/2019 2:37 PM CDT Resulting Agency Comment Specimen source: Serum Ernie Pompa MD LAB BLOOD ORDERABLES Performing Organization Address [facility] Code Phon e Number APS [...] BANK TEST ORDERABL ES Performing Organization Address City/[facility]/ZIP Code Phon e Number APS [...] 09/19/2019 Unless otherwise specified, test(s) performed at: [facility], [address] [place] [address] COLORIST DYER: Alec Payan M.D. For any questions, please call customer service at FREQUENCY:MONTHLY Resulting Agency Comment Specimen source: Serum Ernie Pompa MD LAB BLOOD ORDERABLES Performing Organization Address City/State/ZIP Code Phon e Number [facility] (ABNORMAL) HEMATOLOGY (09/18/2019) [facility] gist Method Time Signature WBC 5.19 [...] 09/19/2019 Unless otherwise specified, test(s) performed at: [facility], [address] [place] [address] COLORIST DYER: Alec Payan M.D. For any questions, please call customer service at FREQUENCY:MONTHLY Resulting Agency Comment Specimen source: Blood Ernie Pompa MD LAB BLOOD ORDERABLES Performing Organization Address City/State/ZIP Code Phon e Number [facility] documented in this encounter Visit Diagnoses Not on filedocumented in this encounter
--- OUTSIDE RECORDS SUMMARY | 2021-11-11 09:40 | XMS_ITS | Encounter Summary ---
:1945 Author Organization [facility] Address [address] [place] [address] Care Team Providers Name Role Phone Unavailable Primary Care Provider Unavailable Encounter Details Date Type Department Care Team Description 05/01/2019 Orders Only [facility] O f Ernie Guzmán MD [address] [place] [address] [place], [place] [phone] (Wo rk) Social History Tobacco Use [...] above test result was obtained using Siemens Preventiceaur XP chemiluminescent method. Results obtaine d with different assay methods or kits cannot be used interchangeably. Specimen (Source) Anatomical Collection Method Collection Time Re ceived Time Location / / Volume Laterality 05/01/2019 05/02/2019 3:03 PM MANAGER INTRANET Resulting Agency Comment Specimen source: Serum Ernie [...] / Volume Laterality 05/01/2019 05/02/2019 3:03 PM MANAGER INTRANET Narrative [facility] - 05/03/2019 Unless otherwise specified, test(s) performed at: [facility] [address] [place], [place] [id number] WATER FITNESS INSTRUCTOR: Tawanna green M.D. For any questions, please call customer service at FREQUENCY:MONTHLY Resulting Agency Comment Specimen source: Serum Ernie Pompa MD LAB BLOOD BANK TEST ORDERABL ES Performing Organization Address City/[facility] Phon e Number APS SPECTRA [facility] (ABNORMAL) [facility]rae Chemistry (05/01/2019) P athologist Signature PTH 351 (H) 16 - 80 APS SPECTRA pg/mL [facility] Specimen (Source) Anatomical Collection Method Collection Time Re ceived Time Location / / Volume Laterality 05/01/2019 05/02/2019 8:20 PM MANAGER INTRANET Narrative [facility]PS S[facility]RA [facility] - 05/03/2019 Unless otherwise specified, test(s) performed at: [facility] [address] [place], [place] [id number] WATER FITNESS INSTRUCTOR: Tawanna green M.D. For any questions, please call customer service at FREQUENCY:MONTHLY Resulting Agency Comment Specimen source: Plasma Ernie Pompa MD LAB BLOOD ORDERABLES Performing Organization Address City/State/[facility] Phon e Number APS SPECTRA [...] / Volume Laterality 05/01/2019 05/02/2019 8:20 PM MANAGER INTRANET Narrative [facility]RA [facility] - 05/03/2019 Unless otherwise specified, test(s) performed at: [facility] [address] [place] [address] WATER FITNESS INSTRUCTOR: Tawanna green M.D. For any questions, please call customer service at FREQUENCY:MONTHLY Resulting Agency Comment Specimen source: Blood Ernie Pompa MD LAB BLOOD ORDERABLES Performing Organization Address City/[facility] Phon e Number [facility] TRACE ELEMENTS (05/01/2019) P athologist Signature Aluminum <5 0 - 10 APS SPECTRA mcg/L [facility] Comment: This test was developed and its performa nce characteristics determined by [facility] It has not been cleared or approved by the FDA. The laboratory is regulated under CLIA a s qualified to perform high complexity testing. This test is used fo r clinical purposes. It should not be regarded as investigational or fo r research. Specimen (Source) Anatomical Collection Method Collection Time Re ceived Time Location / / Volume Laterality 05/01/2019 05/02/2019 4:05 PM MANAGER INTRANET Narrative [facility]PS SPECTRA [facility] - 05/02/2019 Unless otherwise specified, test(s) performed at: [facility] [address] [place] [address] WATER FITNESS INSTRUCTOR: Tawanna green M.D. For any questions, please call customer service at FREQUENCY:MONTHLY Resulting Agency Comment Specimen source: Serum Ernie Pompa MD LAB BLOOD ORDERABLES Performing Organization Address City/[facility] Phon e Number [facility]PS SPECTRA [facility] (ABNORMAL) HD KINETICS (05/01/2019) P athologist Signature % Urea 96 (H) 65 - 80 % APS SPECTRA Reduction [facility] Specimen (Source) Anatomical Collection Method Collection Time Re ceived Time Location / / Volume Laterality 05/01/2019 05/02/2019 3:04 PM MANAGER INTRANET Narrative [facility]PS S[facility]RA [facility] - 05/02/2019 Unless otherwise specified, test(s) performed at: [facility] [address] [phone] WATER FITNESS INSTRUCTOR: Tawanna green M.D. For any questions, please call customer service at FREQUENCY:MONTHLY Resulting Agency Comment Specimen source: Serum Ernie Pompa MD LAB BLOOD ORDERABLES Performing Organization Address City/State/ZIP Code Phon e Number [facility]PS SPECTRA [facility] (ABNORMAL) Spectrae Chemistry (05/01/2019) [facility] gist Method Time Signature BUN 68 (H) [...] / Volume Laterality 05/01/2019 05/02/2019 3:03 PM MANAGER INTRANET Narrative APS SPECTRA [facility] - 05/03/2019 Unless otherwise specified, test(s) performed at: [facility] [address] [place] [address] WATER FITNESS INSTRUCTOR: Tawanna green M.D. For any questions, please call customer service at FREQUENCY:MONTHLY Resulting Agency Comment Specimen source: Serum Ernie Pompa MD LAB BLOOD ORDERABLES Performing Organization Address City/[facility]/ZIP Code Phon e Number APS SPECTRA [facility] (ABNORMAL) POST CHEMISTRY (05/01/2019) P athologist Signature BUN Post 3 (L) 6 - 19 APS SPECTRA Dialysis mg/dL [facility] Specimen (Source) Anatomical Collection Method Collection Time Re ceived Time Location / / Volume Laterality 05/01/2019 05/02/2019 12:5 1 PM MANAGER INTRANET Narrative APS SPECTRA [facility] - 05/02/2019 Unless otherwise specified, test(s) performed at: [facility] [address] [place] [address] WATER FITNESS INSTRUCTOR: Tawanna green M.D. For any questions, please call customer service at FREQUENCY:MONTHLY Resulting Agency Comment Specimen source: Plasma Ernie Pompa MD LAB BLOOD ORDERABLES Performing Organization Address City/State/ZIP [facility] Phon e Number APS SPECTRA [facility] documented in this encounter Visit Diagnoses Not on filedocumented in this encounter
--- OUTSIDE RECORDS SUMMARY | 2021-11-11 09:40 | XMS_ITS | Encounter Summary ---
:1945 Author Organization [facility] Address [address] [place] [address] Care Team Providers Name Role Phone Unavailable Primary Care Provider Unavailable Encounter Details Date Type Department Care Team Description 08/28/2019 Orders Only [facility] O f Ernie Guzmán MD [address] [place] [address] [phone] (Wo rk) Social History Tobacco Use [...] 08/29/2019 Unless otherwise specified, test(s) performed at: [facility], [address] [place] [address] DRIVING TEACHER: Alec Payan M.D. For any questions, please call customer service at FREQUENCY:OTHER Resulting Agency Comment Specimen source: Blood Ernie Pompa MD LAB BLOOD ORDERABLES Performing Organization Address City/State/ZIP Code Phon e Number [facility]PS SPECTRA [facility] documented in this encounter Visit Diagnoses Not on filedocumented in this encounter
--- OUTSIDE RECORDS SUMMARY | 2021-11-11 09:40 | XMS_ITS | Encounter Summary ---
:1945 Author Organization [facility] Address [address] [place] [address] Care Team Providers Name Role Phone Unavailable Primary Care Provider Unavailable Encounter Details Date Type Department Care Team Description 05/10/2019 Orders Only [facility] O f Ernie Guzmán MD [address] [place] [address] [place], [place] [phone] (Wo rk) Social History Tobacco Use [...] / Volume Laterality 05/10/2019 05/11/2019 9:28 AM MOLD CLOSER HELPER Narrative [facility]PS SPECTRA [facility] - 05/11/2019 Unless otherwise specified, test(s) performed at: [facility], [address] [place] [address] COOK HOUSE SUPERVISOR: Tawanna green M.D. For any questions, please call customer service at FREQUENCY:OTHER Resulting Agency Comment Specimen source: Blood Ernie Pompa MD LAB BLOOD ORDERABLES Performing Organization Address City/State/ZIP Code Phon e Number [facility]PS SPECTRA [facility] documented in this encounter Visit Diagnoses Not on filedocumented in this encounter
--- OUTSIDE RECORDS SUMMARY | 2021-11-11 09:40 | XMS_ITS | Encounter Summary ---
:1945 Author Organization [facility] Address [address] [place] [address] Care Team Providers Name Role Phone Unavailable Primary Care Provider Unavailable Encounter Details Date Type Department Care Team Description 08/21/2019 Orders [facility] O f Ernie Guzmán MD [address] [place] [address] [place], [place] [phone] (Wo rk) Social History Tobacco Use [...] . documented in this encounter Results [facility] Lab Results (08/21/2019) P athologist Signature spKt/V [...] 08/23/2019 Unless otherwise specified, test(s) performed at: [facility], [address] [place], [place] [phone] SOLAR SALES: Alec Payan M.D. For any questions, please call customer service at FREQUENCY:MONTHLY Resulting Agency Comment Specimen source: Serum Ernie Pompa MD LAB BLOOD ORDERABLES Performing Organization Address City/[facility] [address]/ZIP Code Phon e Number APS SPECTRA [...] [address]/ZIP Code Phon e Number [facility]PS SPECTRA [facility] POST CHEMISTRY (08/21/2019) P athologist Signature BUN Post 10 6 - 19 APS SPECTRA Dialysis mg/dL [facility] Specimen (Source) Anatomical Collection Method Collection Time Re ceived Time Location / / Volume Laterality 08/21/2019 08/22/2019 9:06 PM CDT Narrative APS SPECTRA [facility] - 08/23/2019 Unless otherwise specified, test(s) performed at: [facility], [address] [place] [address] SOLAR SALES: Alec Payan M.D. For any questions, please call customer service at FREQUENCY:MONTHLY Resulting Agency Comment Specimen source: Plasma Ernie Pompa MD LAB BLOOD ORDERABLES Performing Organization Address City/State/ZIP Code Phon e Number APS SPECTRA [facility] (ABNORMAL) Spectrae Chemistry (08/21/2019) [facility] Method Time Signature BUN 40 (H) 6 [...] 08/23/2019 Unless otherwise specified, test(s) performed at: [facility], [address] [place] [address] SOLAR SALES: Alec Payan M.D. For any questions, [...] 08/22/2019 Unless otherwise specified, test(s) performed at: [facility], [address] [place] [address] SOLAR SALES: Alec Payan M.D. For any questions, please call customer service at FREQUENCY:MONTHLY Resulting Agency Comment Specimen source: Blood Ernie Pompa MD LAB BLOOD ORDERABLES Performing Organization Address City/State/ZIP Code Phon e Number [facility]PS SPECTRA [facility] documented in this encounter Visit Diagnoses Not on filedocumented in this encounter
--- OUTSIDE RECORDS SUMMARY | 2021-11-11 09:40 | XMS_ITS | Encounter Summary ---
:1945 Author Organization [facility] Address [address] [place] [address] Care Team Providers Name Role Phone Unavailable Primary Care Provider Unavailable Encounter Details Date Type Department Care Team Description 09/04/2019 Orders Only [facility] O f Ernie Guzmán MD [address] [place] [address] [place], [place] [phone] (Wo rk) Social History Tobacco Use [...] 09/05/2019 Unless otherwise specified, test(s) performed at: [facility], [address] [place] [address] BUNDLER SEASONAL [place]: Alec Payan M.D. For any questions, please call customer service at FREQUENCY:OTHER Resulting Agency Comment Specimen source: Blood Ernie Pompa MD LAB BLOOD ORDERABLES Performing Organization Address City/State/ZIP Code Phon e Number [facility]PS SPECTRA [facility] documented in this encounter Visit Diagnoses Not on filedocumented in this encounter
--- OUTSIDE RECORDS SUMMARY | 2021-11-11 09:40 | XMS_ITS | Encounter Summary ---
:1945 Author Organization [facility] Address [address] [place] [address] Care Team Providers Name Role Phone Unavailable Primary Care Provider Unavailable Encounter Details Date Type Department Care Team Description 07/03/2019 Orders Only [facility] O f Ernie Guzmán MD [address] [place] [address] [place], [place] [phone] (Wo rk) Social History Tobacco Use [...] Performing Organization Address [facility] Phon e Number K[facility] IMMUNO CHEMISTRY (07/03/2019) P athologist Signature Hep B Surface Negative Negative APS SPECTRA Ag [facility] Specimen (Source) Anatomical Collection Method Collection Time Re ceived Time Location / / Volume Laterality 07/03/2019 07/04/2019 8:19 PM CDT Narrative APS SPECTRA [facility] - 07/05/2019 Unless otherwise specified, test(s) performed at: [facility], [address] [place] [address] CALL OR CONTACT CENTRE COACH: Alec Payan M.D. For any questions, please call customer service at FREQUENCY:OTHER Resulting Agency Comment Specimen source: Serum Ernie Pompa MD LAB BLOOD ORDERABLES Performing Organization Address [facility] Phon e Number APS SPECTRA [facility] HD KINETICS (07/03/2019) P athologist Signature % Urea 71 65 - 80 % APS SPECTRA Reduction [facility] Specimen (Source) Anatomical Collection Method Collection Time Re ceived Time Location / / Volume Laterality 07/03/2019 07/04/2019 8:19 PM CDT Narrative APS SPECTRA [facility] - 07/05/2019 Unless otherwise specified, test(s) performed at: [facility], [address] [place] [address] CALL OR CONTACT CENTRE COACH: Alec Payan M.D. For any questions, please call customer service at FREQUENCY:OTHER Resulting Agency Comment Specimen source: Serum Ernie Pompa MD LAB BLOOD ORDERABLES Performing Organization Address City/[facility] Phon e Number APS SPECTRA [facility] (ABNORMAL) Spectrae Chemistry (07/03/2019) P athologist Signature BUN 35 (H) 6 - 19 APS SPECTRA mg/dL [facility] Specimen (Source) Anatomical Collection Method Collection Time Re ceived Time Location / / Volume Laterality 07/03/2019 07/04/2019 8:19 PM CDT Narrative APS SPECTRA [facility] - 07/05/2019 Unless otherwise specified, test(s) performed at: [facility], [address] [place] [address] CALL OR CONTACT CENTRE COACH: Alec Payan M.D. For any questions, please call customer service at FREQUENCY:OTHER Resulting Agency Comment Specimen source: Serum Ernie Pompa MD LAB BLOOD ORDERABLES Performing Organization Address City/[facility] Phon e Number APS SPECTRA [facility] POST CHEMISTRY (07/03/2019) P athologist Signature BUN Post 10 6 - 19 APS SPECTRA Dialysis mg/dL [facility] Specimen (Source) Anatomical Collection Method Collection Time Re ceived Time Location / / Volume Laterality 07/03/2019 07/04/2019 5:30 PM CDT Narrative APS SPECTRA [facility] - 07/04/2019 Unless otherwise specified, test(s) performed at: [facility], [address] [place] [address] CALL OR CONTACT CENTRE COACH: Alec Payan M.D. For any questions, please call customer service at FREQUENCY:OTHER Resulting Agency Comment Specimen source: Plasma Ernie Pompa MD LAB BLOOD ORDERABLES Performing Organization Address [facility] Phon e Number APS [...] 07/04/2019 Unless otherwise specified, test(s) performed at: [facility], [address] [place] [address] CALL OR CONTACT CENTRE COACH: Alec Payan M.D. For any questions, please call customer service at FREQUENCY:OTHER Resulting Agency Comment Specimen source: Blood Ernie Pompa MD LAB BLOOD ORDERABLES Performing Organization Address City/[facility] Phon e Number APS SPECTRA [facility] documented in this encounter Visit Diagnoses Not on filedocumented in this encounter
--- OUTSIDE RECORDS SUMMARY | 2021-11-11 09:40 | XMS_ITS | Encounter Summary ---
:1945 Author Organization [facility] Address [address] [place] [address] Care Team Providers Name Role Phone Unavailable Primary Care Provider Unavailable Encounter Details Date Type Department Care Team Description 06/26/2019 Orders Only [facility] O f Ernie Guzmán MD [address] [place] [address] [place], [place] [phone] (Wo rk) Social History Tobacco Use [...] 06/27/2019 Unless otherwise specified, test(s) performed at: [facility], [address] [place] [address] PHOTOGRAMMETRIC ENGINEER: Alec Payan M.D. For any questions, please call customer service at FREQUENCY:OTHER Resulting Agency Comment Specimen source: Blood Ernie Pompa MD LAB BLOOD ORDERABLES Performing Organization Address City/State/ZIP Code Phon e Number APS SPECTRA [facility] documented in this encounter Visit Diagnoses Not on filedocumented in this encounter
--- OUTSIDE RECORDS SUMMARY | 2021-11-11 09:40 | XMS_ITS | Encounter Summary ---
:1945 Author Organization [facility] Address [address] [place] [address] Care Team Providers Name Role Phone Unavailable Primary Care Provider Unavailable Encounter Details Date Type Department Care Team Description 06/12/2019 Orders Only [facility] O f Ernie Guzmán MD [phone] [place] [address] [place], [place] [phone] (Wo rk) Social History Tobacco Use [...] 06/13/2019 Unless otherwise specified, test(s) performed at: [facility], [address] [place] [address] SPINDLE PLUMBER: Tawanna green M.D. For any questions, please call customer service at FREQUENCY:OTHER Resulting Agency Comment Specimen source: Blood Ernie Pompa MD LAB BLOOD ORDERABLES Performing Organization Address City/State/ZIP Code Phon e Number APS SPECTRA [facility] documented in this encounter Visit Diagnoses Not on filedocumented in this encounter
--- OUTSIDE RECORDS SUMMARY | 2021-11-11 09:40 | XMS_ITS | Encounter Summary ---
:1945 Author Organization [facility] Address [address] [place] [address] Care Team Providers Name Role Phone Unavailable Primary Care Provider Unavailable Encounter Details Date Type Department Care Team Description 07/10/2019 Treatment [facility] O Ernie Gómez MD [address] [place] [address] [place], [place] [phone] [phone] (Wo rk) Social History Tobacco Use Types Packs/Day Years Used Date Smoking Tobacco: Unknown Comments: Smoking History Info:Patient n ot screened Sex Assigned at Date Recorded Not on file documented as of this encounter Miscellaneous Notes Dialysis Note - Ernie Pompa MD - 07/10/2019 11:42 AM CDT Date: Jul 10, 2019 Patient Name: Shaun Ocampo : 1945 Chart #: [id number] Sex: M This patient was personally seen [...] AM ) BP (sit): 136/58 AP(-) / NURSERY TEACHER: n/a Pulse: 76 Chairside data as of [...] 4:0 Actual Treatment Time 04:04 04:02 04:04 CABLE SPLICER HELPER: Ernie Pompa MD LOCATION: [place] [phone] SCHEDULE: M-W- 2nd Shift ACCESS: EDW: kg. [...] (05/01/19) Vascular Access Assessment: Type of access: Llntdas03/2019 Surgeon - Lary GARDNER Advanced needles to [...]
--- OUTSIDE RECORDS SUMMARY | 2021-11-11 09:40 | XMS_ITS | Encounter Summary ---
:1945 Author Organization [facility] Address [address] [place] [address] Care Team Providers Name Role Phone Unavailable Primary Care Provider Unavailable Encounter Details Date Type Department Care Team Description 08/28/2019 Treatment [facility] O Ernie Gómez MD [address] [place] [address] [place], [place] [address] [phone] (Wo rk) Social History Tobacco Use Types Packs/Day Years Used Date Smoking Tobacco: Unknown Comments: Smoking History Info:Patient n ot screened Sex Assigned at Date Recorded Not on file documented as of this encounter Miscellaneous Notes Dialysis Note - Ernie Pompa MD - 08/28/2019 12:51 PM CDT Date: Aug 28, 2019 Patient Name: Shaun Ocampo : 1945 Chart #: [id number] Sex: M This patient was personally seen [...] PM ) BP (sit): 147/58 AP(-) / TICKET PULLER: 198/168 Pulse: 65 Chairside data as of [...] IVP Every Treatment During Dialysis 08/26/2019 09/16/2019 INVENTORY ASSOCIATE: Ernie Pompa MD LOCATION: [phone] SCHEDULE: -- 2nd Shift EDW: kg. DIALYZER: [...] prescription. Vascular Access Assessment Type of access: Gxqybeg89/2019 Surgeon - Lary GARDNER Access working well [...] at goal. Intact PTH is below goal. Parking Line Painter will adjust binders and vitamin D per [...]
--- OUTSIDE RECORDS SUMMARY | 2021-11-11 09:40 | XMS_ITS | Encounter Summary ---
:1945 Author Organization [facility] Address [address] [place] [address] Care Team Providers Name Role Phone Unavailable Primary Care Provider Unavailable Encounter Details Date Type Department Care Team Description 08/07/2019 Orders Only [facility] O f Ernie Guzmán MD [phone] [place] [address] [place], [place] [phone] (Wo rk) Social History Tobacco Use [...] 08/08/2019 Unless otherwise specified, test(s) performed at: [facility], [address] [place] [address] HIGH DENSITY TALC COATER OPERATOR: Alec Payan M.D. For any questions, please call customer service at FREQUENCY:OTHER Resulting Agency Comment Specimen source: Blood Ernie Pompa MD LAB BLOOD ORDERABLES Performing Organization Address City/State/ZIP Code Phon e Number APS SPECTRA [facility] documented in this encounter Visit Diagnoses Not on filedocumented in this encounter
--- OUTSIDE RECORDS SUMMARY | 2021-11-11 09:40 | XMS_ITS | Encounter Summary ---
:1945 Author Organization [facility] Address [address] [place] [address] Care Team Providers Name Role Phone Unavailable Primary Care Provider Unavailable Encounter Details Date Type Department Care Team Description 05/15/2019 Orders Only [facility] O f Ernie Guzmán MD [address] [place] [address] [place], [place] [phone] (Wo rk) Social History Tobacco Use Types Packs/Day Years Used Date Smoking Tobacco: Unknown Comments: Smoking History Info:Patient n ot screened Sex Assigned at Date Recorded Not on file documented as of this encounter Plan of Treatment Not on filedocumented as of this encounter Procedures Procedure Name Priority Date/Time Associated Comments Diagnosis POST CHEMISTRY Routine 05/15/2019 2:24 PM Results for this GORE SEAMER procedure are i n the results section. HD KINETICS Routine 05/15/2019 10:08 AM Results for this GORE SEAMER procedure are i n the results section. HEMATOLOGY Routine 05/15/2019 10:08 AM Results for this GORE SEAMER procedure are i n the results section. CHEMISTRY Routine 05/15/2019 10:08 AM Results for this GORE SEAMER procedure are i n the results section. SPECTRA [facility] Routine 05/15/2019 Results for t his RESULTS procedure are i n the results section. documented in this encounter Results POST CHEMISTRY (05/15/2019 2:24 PM GORE SEAMER) P athologist Signature BUN Post APS SPECTRA Dialysis mg/dL [facility] Specimen Anatomical Collection Method Collection Time Receive d Time (Source) Location / / Volume Laterality 05/15/2019 2:24 PM 0 9:40 GORE SEAMER AM GORE SEAMER Narrative APS SPECTRA [facility] - 05/15/2019 2:[address] Unless otherwise specified, test(s) performed at: [facility], [address] [place] [address] GENERAL OPERATIONS AGENT: Tawanna green M.D. For any questions, please call customer service at FREQUENCY:OTHER Resulting Agency Comment Specimen source: Plasma Ernie Pompa MD LAB BLOOD ORDERABLES Performing Organization Address [facility] Phon e Number APS SPECTRA [facility] (ABNORMAL) HD KINETICS (05/15/2019 10:08 AM GORE SEAMER) P athologist Signature % Urea 62 (L) 65 - 80 % APS SPECTRA Reduction [facility] Specimen Anatomical Collection Method Collection Time Receive d Time (Source) Location / / Volume Laterality 05/15/2019 10:08 05/16/2019 AM GORE SEAMER 10:07 AM GORE SEAMER Narrative APS SPECTRA [facility] - 05/15/2019 10:08 AM GORE SEAMER Unless otherwise specified, test(s) performed at: [facility], [address] [place], [place] [id number] GENERAL OPERATIONS AGENT: Tawanna green M.D. For any questions, please call customer service at FREQUENCY:OTHER Resulting Agency Comment Specimen source: Serum Ernie Pompa MD LAB BLOOD ORDERABLES Performing Organization Address [facility] Phon e Number APS SPECTRA [facility] (ABNORMAL) Spectrae Chemistry (05/15/2019 10:08 AM GORE SEAMER) P athologist Signature BUN 29 (H) 6 - 19 APS SPECTRA mg/dL [facility] Specimen Anatomical Collection Method Collection Time Receive d Time (Source) Location / / Volume Laterality 05/15/2019 10:08 05/16/2019 AM GORE SEAMER 10:07 AM GORE SEAMER Narrative APS SPECTRA [facility] - 05/15/2019 10:08 AM GORE SEAMER Unless otherwise specified, test(s) performed at: [facility], [address] [place], [place] [id number] GENERAL OPERATIONS AGENT: Tawanna green M.D. For any questions, please call customer service at FREQUENCY:OTHER Resulting Agency Comment Specimen source: Serum Ernie Pompa MD LAB BLOOD ORDERABLES Performing Organization Address City/[facility] Phon e Number APS SPECTRA [facility] (ABNORMAL) HEMATOLOGY (05/15/2019 10:08 AM GORE SEAMER) Analysis Performed At Patho logist Time Signature Hemoglobin 8.2 (L) 14.0 - APS SPECTRA 18.0 g/dL [facility] Hemoglobin x 3 24.6 (L) 42.0 - APS SPECTRA 54.0 % [facility] Specimen Anatomical Collection Method Collection Time Receive d Time (Source) Location / / Volume Laterality 05/15/2019 10:08 05/16/2019 AM GORE SEAMER 10:48 AM GORE SEAMER Narrative APS SPECTRA [facility] - 05/15/2019 10:08 AM GORE SEAMER Unless otherwise specified, test(s) performed at: [facility], [address] [place] [address] GENERAL OPERATIONS AGENT: Tawanna green M.D. For any questions, please call customer service at FREQUENCY:OTHER Resulting Agency Comment Specimen source: Blood Ernie Pompa MD LAB BLOOD ORDERABLES Performing Organization Address City/[facility] Phon e Number APS SPECTRA [facility] Spectra [facility] Lab Results (05/15/2019) P athologist Signature nPCR_HD 0.50 K[facility] eKdrt/V 0.95 KAMERON eKt/V Gotch 0.95 KAMERON spKt/V 1.07 KAMERON (Daugirdas II) spKt/V Gotch 1.08 KAMERON eKt/V 0.94 [facility] ([place]) eNPCR 0.48 [facility] PCR 42.37 [facility] Specimen (Source) Anatomical Location Collection Method / Collectio n Time Received Time / Laterality Volume 05/15/2019 05/15/2019 K[facility]on Ordering Provider LAB BLOOD ORDERABLES Performing Organization Address City/State/ZIP Code Phon e Number K[facility]ON documented in this encounter Visit Diagnoses Not on filedocumented in this encounter
--- OUTSIDE RECORDS SUMMARY | 2021-11-11 09:40 | XMS_ITS | Encounter Summary ---
:1945 Author Organization [facility] Address [address] [place] [address] Care Team Providers Name Role Phone Unavailable Primary Care Provider Unavailable Encounter Details Date Type Department Care Team Description 06/26/2019 Treatment [facility] O f Ernie Guzmán MD [address] [place] [address] [place], [place] [address] [phone] (Wo rk) Social History Tobacco Use Types Packs/Day Years Used Date Smoking Tobacco: Unknown Comments: Smoking History Info:Patient n ot screened Sex Assigned at Date Recorded Not on file documented as of this encounter Miscellaneous Notes Dialysis Note - Ernie Pompa MD - 06/26/2019 12:47 PM CDT Date: Jun 26, 2019 Patient Name: Shaun Ocampo : 1945 Chart #: [id number] Sex: M This patient was personally seen [...] PM ) BP (sit): 146/80 AP(-) / FILM HISTORIAN: 248/209 Pulse: 79 Chairside data as of [...] 4:0 Actual Treatment Time 04:03 04:02 04:01 UPKEEP MECHANIC: Ernie Pompa MD LOCATION: [place] [phone] SCHEDULE: -W- 2nd Shift EDW: kg. DIALYZER: [...] this. Vascular Access Assessment Type of access: Qnehaba39/2019 Surgeon - Lary GARDNER Advanced needles to [...] at goal. Intact PTH is at goal. Credit Cashier will adjust binders and vitamin D per [...]
--- OUTSIDE RECORDS SUMMARY | 2021-11-11 09:40 | XMS_ITS | Encounter Summary ---
:1945 Author Organization [facility] Address [address] [place] [address] Care Team Providers Name Role Phone Unavailable Primary Care Provider Unavailable Encounter Details Date Type Department Care Team Description 06/19/2019 Orders Only [facility] O f Ernie Guzmán MD [address] [place] [address] [place], [place] [phone] (Wo rk) Social History Tobacco Use [...] 06/21/2019 Unless otherwise specified, test(s) performed at: [facility], [address] [place] [address] DIRECTIONAL DRILL OPERATOR: Alec Payan M.D. For any questions, [...] 06/21/2019 Unless otherwise specified, test(s) performed at: [facility], [address] [place] [address] DIRECTIONAL DRILL OPERATOR: Alec Payan M.D. For any questions, please call customer service at FREQUENCY:MONTHLY Resulting Agency Comment Specimen source: Serum Ernie Pompa MD LAB BLOOD ORDERABLES Performing Organization Address [facility] Phon e Number APS SPECTRA [facility] (ABNORMAL) Spectrae Chemistry (06/19/2019) P athologist Signature PTH 199 (H) 16 - 80 APS SPECTRA pg/mL [facility] Specimen (Source) Anatomical Collection Method Collection Time Re ceived Time Location / / Volume Laterality 06/19/2019 06/20/2019 3:50 PM CDT Resulting Agency Comment Specimen source: Plasma Ernie Pompa MD LAB BLOOD ORDERABLES Performing Organization Address City/[facility] Code Phon e Number APS [...] 06/21/2019 Unless otherwise specified, test(s) performed at: [facility], [address] [place] [address] DIRECTIONAL DRILL OPERATOR: Alec Payan M.D. For any questions, please call customer service at FREQUENCY:MONTHLY Resulting Agency Comment Specimen source: Blood Ernie Pompa MD LAB BLOOD ORDERABLES Performing Organization Address City/[facility] Phon e Number APS SPECTRA [facility] POST CHEMISTRY (06/19/2019) P athologist Signature BUN Post 13 6 - 19 APS SPECTRA Dialysis mg/dL [facility] Specimen (Source) Anatomical Collection Method Collection Time Re ceived Time Location / / Volume Laterality 06/19/2019 06/20/2019 5:07 PM CDT Narrative APS SPECTRA [facility] - 06/20/2019 Unless otherwise specified, test(s) performed at: [facility], [address] [place] [address] DIRECTIONAL DRILL OPERATOR: Alec Payan M.D. For any questions, please call customer service at FREQUENCY:MONTHLY Resulting Agency Comment Specimen source: Plasma Ernie Pompa MD LAB BLOOD ORDERABLES Performing Organization Address City/[facility] Phon e Number APS SPECTRA [facility] documented in this encounter Visit Diagnoses Not on filedocumented in this encounter
--- OUTSIDE RECORDS SUMMARY | 2021-11-11 09:40 | XMS_ITS | Encounter Summary ---
:1945 Author Organization [facility] Address [address] [place] [address] Care Team Providers Name Role Phone Unavailable Primary Care Provider Unavailable Encounter Details Date Type Department Care Team Description 05/22/2019 Treatment [facility] O Ernie Gómez MD [address] [place] [address] [place], [place] [phone] (Wo rk) Social History Tobacco Use Types Packs/Day Years Used Date Smoking Tobacco: Unknown Comments: Smoking History Info:Patient n ot screened Sex Assigned at Date Recorded Not on file documented as of this encounter Miscellaneous Notes Dialysis Note - Ernie Pompa MD - 05/22/2019 12:28 PM CST Date: May 22, 2019 Patient Name: Shaun Ocampo : 1945 Chart #: [id number] Sex: M This patient was personally seen [...] AM ) BP (sit): n/a AP(-) / CLEANER FURNITURE: 231/165 Pulse: n/a Chairside data as of [...] 4:0 Actual Treatment Time 04:04 04:01 04:04 IT BUSINESS SYSTEMS ANALYST: Ernie Pompa MD LOCATION: [place] [phone] SCHEDULE: -- 2nd Shift EDW: kg. DIALYZER: [...] tablet Take 1 tablet once a day [place] Saline (sodium chloride) 0.65% drops calcitriol 0.25 [...] 800 Vascular Access Assessment Type of access: Tecgwyk77/2019 Surgeon - Lary GARDNER Advancing needles to [...] at goal. Intact PTH is at goal. Biofuels Production Associate will adjust binders and vitamin D [...]
--- OUTSIDE RECORDS SUMMARY | 2021-11-11 09:40 | XMS_ITS | Encounter Summary ---
:1945 Author Organization [facility] Address [address] [place] [address] Care Team Providers Name Role Phone Unavailable Primary Care Provider Unavailable Encounter Details Date Type Department Care Team Description 06/05/2019 Orders Only [facility] O f Ernie Guzmán MD [address] [place] [address] [place], [place] [phone] (Wo rk) Social History Tobacco Use [...] 06/06/2019 Unless otherwise specified, test(s) performed at: [facility], [address] [place] [address] ANESTHESIA RESIDENT: Tawanna green M.D. For any questions, please call customer service at FREQUENCY:OTHER Resulting Agency Comment Specimen source: Blood Ernie Pompa MD LAB BLOOD ORDERABLES Performing Organization Address City/State/ZIP Code Phon e Number APS SPECTRA [facility] documented in this encounter Visit Diagnoses Not on filedocumented in this encounter
--- OUTSIDE RECORDS SUMMARY | 2021-11-11 09:40 | XMS_ITS | Encounter Summary ---
:1945 Author Organization [facility] Address [address] [place] [address] Care Team Providers Name Role Phone Unavailable Primary Care Provider Unavailable Encounter Details Date Type Department Care Team Description 05/15/2019 Treatment [facility] Ernie Gómez MD [address] [place] [address] [place], [place] [address] [phone] (Wo rk) Social History Tobacco Use Types Packs/Day Years Used Date Smoking Tobacco: Unknown Comments: Smoking History Info:Patient n ot screened Sex Assigned at Date Recorded Not on file documented as of this encounter Miscellaneous Notes Dialysis Note - Ernie Pompa MD - 05/15/2019 12:58 PM CST Date: May 15, 2019 Patient Name: Shaun Ocampo : 1945 Chart #: [id number] Sex: M This patient was personally seen [...] AM ) BP (sit): 148/53 AP(-) / GLASS ROBOT OPERATOR: 216/194 Pulse: 62 Chairside data as of [...] 4:0 4:0 Actual Treatment Time 04:01 04:03 TRESTLE MECHANIC: Ernie Pompa MD LOCATION: [phone] SCHEDULE: -- 2nd Shift EDW: kg. DIALYZER: [...] tablet Take 1 tablet once a day [place] Saline (sodium chloride) 0.65% drops calcitriol 0.25 [...] away) Vascular Access Assessment Type of access: Ehzskci07/2019 Lary GARDNER Anemia Assessment HEMOGLOBIN (G/DL) IN [...] at goal. Intact PTH is at goal. Lead Machinist will adjust binders and vitamin D per [...] Name: Shaun Ocampo : 1945 Chart #: [id number] Sex: M Patient Type: ESRD Modality: Hemodialysis Inside Sales Person: Ernie Pompa MD Location: [phone] Schedule: -W- 2nd Shift Initial Access Date [...]
--- OUTSIDE RECORDS SUMMARY | 2021-11-11 09:40 | XMS_ITS | Encounter Summary ---
:1945 Author Organization [facility] Address [address] [place] [address] Care Team Providers Name Role Phone Unavailable Primary Care Provider Unavailable Encounter Details Date Type Department Care Team Description 05/29/2019 Orders Only [facility] f Ernie Guzmán MD [phone] [place] [address] [place], [place] [phone] (Wo rk) Social History Tobacco Use [...] Provider LAB BLOOD ORDERABLES Performing Organization Address City/[facility]/ZIP [facility] Phon e Number KAMERON (ABNORMAL) HD KINETICS (05/29/2019) P athologist Signature % Urea 64 (L) 65 - 80 % APS SPECTRA Reduction [facility] Specimen (Source) Anatomical Collection Method Collection Time Re ceived Time Location / / Volume Laterality 05/29/2019 05/30/2019 6:23 PM CDT Narrative APS SPECTRA [facility] - 05/30/2019 Unless otherwise specified, test(s) performed at: [facility], [address] [place] [address] BARREL REAMER: Tawanna green M.D. For any questions, please call customer service at FREQUENCY:OTHER Resulting Agency Comment Specimen source: Serum Ernie Pompa MD LAB BLOOD ORDERABLES Performing Organization Address City/[facility] Phon e Number APS SPECTRA [facility] (ABNORMAL) Spectrae Chemistry (05/29/2019) athologist Signature BUN 28 (H) 6 - 19 APS SPECTRA mg/dL [facility] Ferritin 252 22 - 322 APS SPECTRA ng/mL [facility] Specimen (Source) Anatomical Collection Method Collection Time Re ceived Time Location / / Volume Laterality 05/29/2019 05/30/2019 6:22 PM CDT Narrative APS SPECTRA [facility] - 05/30/2019 Unless otherwise specified, test(s) performed at: [facility], [address] [place] [address] BARREL REAMER: Tawanna green M.D. For any questions, please call customer service at FREQUENCY:OTHER Resulting Agency Comment Specimen source: Serum Ernie Pompa MD LAB BLOOD ORDERABLES Performing Organization Address City/[facility]/ZIP [facility] Phon e Number APS SPECTRA [facility] POST CHEMISTRY (05/29/2019) P athologist Signature BUN Post 10 6 - 19 APS SPECTRA Dialysis mg/dL [facility] Specimen (Source) Anatomical Collection Method Collection Time Re ceived Time Location / / Volume Laterality 05/29/2019 05/30/2019 9:58 AM CDT Narrative APS SPECTRA [facility] - 05/30/2019 Unless otherwise specified, test(s) performed at: [facility], [address] [place], [place] [id number] BARREL REAMER: Tawanna green M.D. For any questions, please call customer service at FREQUENCY:OTHER Resulting Agency Comment Specimen source: Plasma Ernie Pompa MD LAB BLOOD ORDERABLES Performing Organization Address City/[facility] Phon e Number APS SPECTRA [facility] (ABNORMAL) [...] 05/30/2019 Unless otherwise specified, test(s) performed at: [facility], [address] [place], [place] [id number] BARREL REAMER: Tawanna green M.D. For any questions, please call customer service at FREQUENCY:OTHER Resulting Agency Comment Specimen source: Blood Ernie Pompa MD LAB BLOOD ORDERABLES Performing Organization Address City/[facility] Phon e Number APS SPECTRA [facility] documented in this encounter Visit Diagnoses Not on filedocumented in this encounter
--- OUTSIDE RECORDS SUMMARY | 2021-11-11 09:40 | XMS_ITS | Encounter Summary ---
:1945 Author Organization [facility] Address [address] [place] [address] Care Team Providers Name Role Phone Unavailable Primary Care Provider Unavailable Encounter Details Date Type Department Care Team Description 09/11/2019 Treatment [facility] Ernie Gómez MD [address] [place] [address] [place], [place] [address] [phone] (Wo rk) Social History Tobacco Use Types Packs/Day Years Used Date Smoking Tobacco: Unknown Comments: Smoking History Info:Patient n ot screened Sex Assigned at Date Recorded Not on file documented as of this encounter Miscellaneous Notes Dialysis Note - Ernie Pompa MD - 09/11/2019 12:23 PM CDT Date: Sep 11, 2019 Patient Name: Shaun Ocampo : 1945 Chart #: [id number] Sex: M This patient was personally seen [...] PM ) BP (sit): 149/59 AP(-) / CROSS ROLLER: 209/174 Pulse: 66 Chairside data as of [...] 08/23/2019 08/02/2019 Access Flow > 2000 1510 BROTH SETTER: Ernie Pompa MD LOCATION: [place] [phone] SCHEDULE: -- 2nd Shift ACCESS: EDW: kg. [...] (05/01/19) Vascular Access Assessment: Type of access: Gckxibx81/2019 Surgeon - Lary GARDNER Access working well [...]
--- OUTSIDE RECORDS SUMMARY | 2021-11-11 09:40 | XMS_ITS | Encounter Summary ---
:1945 Author Organization [facility] Address [address] [place] [address] Care Team Providers Name Role Phone Unavailable Primary Care Provider Unavailable Encounter Details Date Type Department Care Team Description 06/05/2019 Treatment [facility] f Ernie Guzmán MD [address] [place] [address] [place], [place] [phone] (Wo rk) Social History Tobacco Use Types Packs/Day Years Used Date Smoking Tobacco: Unknown Comments: Smoking History Info:Patient n ot screened Sex Assigned at Date Recorded Not on file documented as of this encounter Miscellaneous Notes Dialysis Note - Ernie Pompa MD - 06/05/2019 5:14 PM CDT Date: Jun 05, 2019 Patient Name: Shaun Ocampo : 1945 Chart #: [id number] Sex: M This patient was personally seen for a basic visit as part of routine weekly dialysis care. A reviewof the dialysis treatment, blood pressure, estimated dry weight and recent lab values was made. These were discussed with the patient and staff as necessary. PUBLIC HEALTH TRAINING ASSISTANT: Ernie Pmopa MD LOCATION: [phone] SCHEDULE: M-W-F 2nd Shift ACCESS: EDW: kg. [...] (05/01/19) Vascular Access Assessment: Type of access: Sjwyogn62/2019 Surgeon - Lary KUMARW Advanced needles to [...]
--- OUTSIDE RECORDS SUMMARY | 2021-11-11 09:40 | XMS_ITS | Encounter Summary ---
:1945 Author Organization [facility] Address [address] [place] [address] Care Team Providers Name Role Phone Unavailable Primary Care Provider Unavailable Encounter Details Date Type Department Care Team Description 08/14/2019 Orders Only [facility] f Ernie Guzmán MD [phone] [place] [address] [place], [place] [phone] (Wo rk) Social History Tobacco Use [...] 08/16/2019 Unless otherwise specified, test(s) performed at: [facility], [address] [place] [address] IT ANALYST: Alec Payan M.D. For any questions, please call customer service at FREQUENCY:OTHER Resulting Agency Comment Specimen source: Blood Ernie Pompa MD LAB BLOOD ORDERABLES Performing Organization Address City/State/ZIP Code Phon e Number APS SPECTRA [facility] documented in this encounter Visit Diagnoses Not on filedocumented in this encounter
--- OUTSIDE RECORDS SUMMARY | 2021-11-11 09:40 | XMS_ITS | Continuity of Care Document ---
:1945 Author Organization [facility] Digestive [facility] Address [address] [address] [place] [address] Phone Care Team Providers Name Role Phone [...] rs Description For Visit Copied on Encounter [facility] No Sep- Lizz CAMPBELL Digestive [facility] Information Joce. Health [place], Endoscopy [address] [address], [address], [address], [id number], [place], [place] [id number], tel:[phone] tel:[phone] Init Hosp-da [facility] No Sep- Lizz CAMPBELL Referr ing E&m Mod Digestive [place] Information 3 Joce. Provider : [facility], Hospital 2 [address] [facility] [place], [address], [address], [address] [place] [address], [place], [place], [place], [address], [id number], [place], [place] [id number], , [place], tel:+ [phone]. [phone] tel: tel:[phone] Subsqt [facility] Ramon No Desean MARTIN Referring Hosp-da E&m Digestive [facility] Information 4-200 Lisa. Provider: [facility], Hosp [address] [facility] Jason [place] [address], [address] NE, R, [address] [place] [address], [place], [place], [address], [id number], [place], [place] [id number], [place], [place], [place]: [place]. [phone]. [phone] tel: tel: [phone] Init Inpt [facility] Ramon No No Referring Cons New/est Digestive [facility] Information 2200 Informat ion Provider: [facility], Hosp [address] [place] [address] Jason [place] [address], R, [address] [place] [address], [place], [address], [id number], [place], [place], tel: [phone] tel:[phone] MNGI Ramon No Nilton CAMPBELL Referring Digestive [facility] 9-200 Zaida. 3001 P rovider: [facility], [address], Cash CAMPBELL [address], [address], P, [address] [place] [facility] s, [place], [place], Street [place] [id number], [id number], [address], [place]. [place] tel: tel:+ s, [place], [phone] . tel:[phone] Subsqt M[facility] Ramon No Nesset MANAGER ASSURANCE Referring Hosp-da E&m Digestive [facility] Information 8-200 Ailyn. 30 01 Provider: [facility], Hosp [address] [place] [address] [place] [address], [address], R, [address] [place] [facility] [address] s, [place], [place], [address], [id number], [id number], [place] [facility]. s, [place], tel: tel:[phone]. [phone] tel:[phone] Init Inpt MNGI Ramon No Cash CAMPBELL Referring Cons New/est Digestive [facility] Information 7-200 Bryan. 3001 Provider: [facility], Hosp 9 [facility], Jason CAMPBELL [address], [address], R, [address] [facility] [address], [place], [place], [address], [id number], [id number], [place] [facility]. s, [place], tel: tel:[phone]. [phone] tel:[phone] Family History Family Member Type Diagnosis Age At Onset No Information Payers Payer name Insurance type Covered constitution party ID Authorization(s ) [employer] Medicare Advantage [id number] Social History Type Description Quantity Date Captured [...]
--- OUTSIDE RECORDS SUMMARY | 2021-11-11 09:40 | XMS_ITS | Encounter Summary ---
:1945 Author Organization [facility] Address [address] [place] [address] Care Team Providers Name Role Phone Unavailable Primary Care Provider Unavailable Encounter Details Date Type Department Care Team Description 07/24/2019 Orders Only [facility] O f Ernie Guzmán MD [phone] [place] [address] [place], [place] [phone] (Wo rk) Social History Tobacco Use [...] Provider LAB BLOOD ORDERABLES Performing Organization Address [facility] Phon e Number KAMERON (ABNORMAL) Spectrae Chemistry (07/24/2019) P athologist Signature PTH 164 (H) 16 - 80 APS SPECTRA pg/mL [facility] Specimen (Source) Anatomical Collection Method Collection Time Re ceived Time Location / / Volume Laterality 07/24/2019 07/25/2019 6:44 PM CDT Narrative APS SPECTRA [facility] - 07/26/2019 Unless otherwise specified, test(s) performed at: [facility], [address] [place] [address] INDUSTRIAL RELATIONS MANAGER: Alec Payan M.D. For any questions, please call customer service at FREQUENCY:MONTHLY Resulting Agency Comment Specimen source: Plasma Ernie Pompa MD LAB BLOOD ORDERABLES Performing Organization Address [facility] Phon e Number APS SPECTRA [facility] HD KINETICS (07/24/2019) P athologist Signature % Urea 69 65 - 80 % APS SPECTRA Reduction [facility] Specimen (Source) Anatomical Collection Method Collection Time Re ceived Time Location / / Volume Laterality 07/24/2019 07/25/2019 7:05 PM CDT Narrative APS SPECTRA [facility] - 07/26/2019 Unless otherwise specified, test(s) performed at: [facility], [address] [place] [address] INDUSTRIAL RELATIONS MANAGER: Alec Payan M.D. For any questions, please call customer service at FREQUENCY:MONTHLY Resulting Agency Comment Specimen source: Plasma Ernie Pompa MD LAB BLOOD ORDERABLES Performing Organization Address [facility] Phon e Number APS SPECTRA [facility] [...] 07/26/2019 Unless otherwise specified, test(s) performed at: [facility], [address] [place] [address] INDUSTRIAL RELATIONS MANAGER: Alec Payan M.D. For any questions, [...] 07/25/2019 Unless otherwise specified, test(s) performed at: [facility], [address] [place], [place] [phone] INDUSTRIAL RELATIONS MANAGER: Alec Payan M.D. For any questions, please call customer service at FREQUENCY:MONTHLY Resulting Agency Comment Specimen source: Plasma Ernie Pompa MD LAB BLOOD ORDERABLES Performing Organization Address City/[facility] Phon e Number APS SPECTRA [facility] [...] 07/25/2019 Unless otherwise specified, test(s) performed at: [facility], [address] [place], [place] [phone] INDUSTRIAL RELATIONS MANAGER: Alec Payan M.D. For any questions, please call customer service at FREQUENCY:MONTHLY Resulting Agency Comment Specimen source: Blood Ernie Pompa MD LAB BLOOD ORDERABLES Performing Organization Address City/State/ZIP Code Phon e Number APS SPECTRA [facility] documented in this encounter Visit Diagnoses Not on filedocumented in this encounter
--- OUTSIDE RECORDS SUMMARY | 2021-11-11 09:40 | XMS_ITS | Encounter Summary ---
:1945 Author Organization [facility] Address [address] [place] [address] Care Team Providers Name Role Phone Unavailable Primary Care Provider Unavailable Encounter Details Date Type Department Care Team Description 05/22/2019 Orders Only [facility] O f Ernie Guzmán MD [address] [place] [address] [place], [place] [phone] (Wo rk) Social History Tobacco Use [...] Volume Laterality 05/22/2019 05/23/2019 10:5 1 PM FIELD SERVICE COORDINATOR Resulting Agency Comment Specimen source: Plasma Ernie Pompa MD LAB BLOOD ORDERABLES Performing Organization Address City/State/ZIP Code Phon e Number APS SPECTRA [facility] POST CHEMISTRY (05/22/2019) athologist Signature BUN Post 13 6 - 19 APS SPECTRA Dialysis mg/dL [facility] Specimen (Source) Anatomical Collection Method Collection Time Re ceived Time Location / / Volume Laterality 05/22/2019 05/23/2019 10:5 1 PM FIELD SERVICE COORDINATOR Narrative APS SPECTRA [facility] - 05/24/2019 Unless otherwise specified, test(s) performed at: [facility], [address] [place] [address] PRODUCTION MANAGER: Tawanna green M.D. For any questions, please call customer service at FREQUENCY:MONTHLY Resulting Agency Comment Specimen source: Plasma Ernie Pompa MD LAB BLOOD ORDERABLES Performing Organization Address City/[facility] [address]/ZIP Code Phon e Number APS SPECTRA [facility] (ABNORMAL) Spectrae Chemistry (05/22/2019) [facility] Method Time Signature BUN 30 [...] Volume Laterality 05/22/2019 05/23/2019 11:2 0 AM FIELD SERVICE COORDINATOR Narrative APS SPECTRA [facility] - 05/23/2019 Unless otherwise specified, test(s) performed at: [facility], [address] [place] [address] PRODUCTION MANAGER: Tawanna green M.D. For any questions, please [...] Volume Laterality 05/22/2019 05/23/2019 12:4 6 PM FIELD SERVICE COORDINATOR Narrative APS SPECTRA [facility] - 05/23/2019 Unless otherwise specified, test(s) performed at: [facility], [address] [place] [address] PRODUCTION MANAGER: Tawanna green M.D. For any questions, please call customer service at FREQUENCY:MONTHLY Resulting Agency Comment Specimen source: Blood Ernie Pompa MD LAB BLOOD ORDERABLES Performing Organization Address City/State/ZIP Code Phon e Number APS SPECTRA [facility] documented in this encounter Visit Diagnoses Not on filedocumented in this encounter
--- OUTSIDE RECORDS SUMMARY | 2021-11-11 09:40 | XMS_ITS | Encounter Summary ---
:1945 Author Organization [facility] Address [address] [place] [address] Care Team Providers Name Role Phone Unavailable Primary Care Provider Unavailable Encounter Details Date Type Department Care Team Description 09/11/2019 Orders Only [facility] O f Ernie Guzmán MD [address] [place] [address] [place], [place] [phone] (Wo rk) Social History Tobacco Use [...] in this encounter Results (ABNORMAL) HEMATOLOGY (09/11/2019) [facility] gist Method Time Signature Neutrophils 73.8 40.0 [...] 09/13/2019 Unless otherwise specified, test(s) performed at: [facility], [address] [place] [address] BOND TRADER: Alec Payan M.D. For any questions, please call customer service at FREQUENCY:OTHER Resulting Agency Comment Specimen source: Blood Ernie Pompa MD LAB BLOOD ORDERABLES Performing Organization Address City/State/ZIP Code Phon e Number APS SPECTRA [facility] documented in this encounter Visit Diagnoses Not on filedocumented in this encounter
--- NOTE | 2021-11-11 09:45 | CRLHL7_ITS ---
For Patients: As a result of the Century Cures Act, medical imaging exams and procedure reports are released immediately into your electronic medical record. You may view this report before your referring provider. If you have questions, please contact your health care provider. DUPLEX ARTERIAL ULTRASOUND BILATERAL LOWER EXTREMITIES, 11/11/2021 CLINICAL HISTORY: Peripheral arterial disease, nonhealing ulcers, noncompressible ABIs. COMPARISON: None. TECHNIQUE: The bilateral lower extremity arteries were examined per exam specific protocol with talbot-scale ultrasound, color-flow and Doppler spectral analysis. Peak systolic velocities (PSV), Doppler waveform quality and velocity ratios, if applicable, were documented at sites per exam specific protocol. FINDINGS: RIGHT: PSV (cm/sec). Waveform (T-Tri, B-Bi, M-Burke). ICT HELP DESK TECHNICIAN: 103. T. DFA: 72. T. FA PRX: 112. T. FA MID: 92. T. FA DISTAL: 83. T. POP A: 112. T. NAVA A: 95. T. FLASK FITTER: 30. B. CHRISTEN: 75. T. DPA: 122. B. LEFT: PSV (cm/sec). Waveform (T-Tri, B-Bi, M-Burke). ICT HELP DESK TECHNICIAN: 98. T. DFA: 55. T. FA PRX: 94. T. FA MID: 102. T. FA DISTAL: 112. T. POP A: 107. T. NAVA A: 185. B. FLASK FITTER: 59. B. CHRISTEN: 74. B. DPA: 72. B. Multiphasic waveforms are seen through the bilateral lower extremity arterial system. No evidence of hemodynamically-significant stenoses or occlusions. IMPRESSION: Multiphasic waveforms throughout the bilateral lower extremity arterial system. No evidence of hemodynamically-significant stenoses or occlusions. JESUS ROSARIO M.D. Vascular and Interventional Radiology [email or web address] Transcribed: 2:[address]/Dictated by: Jesus Rosario MD @ 11/11/2021 1:07:00 PM (Electronically Signed)
== END 2021-11-11 09:24 | disposition home or self-care (01) ==
LOC: US 09:24
PROVIDERS: PCP Family Medicine; Visit Provider Nurse Practitioner Family
DX: L97.529 Non-pressure chronic ulcer of other part of left foot with unspecified severity (principal)
CPT/HCPCS: 11042; 93926

== ENCOUNTER 2021-11-18 12:31 | Outpatient (CLI) | payer MEDICARE, SELFPAY ==
--- OUTSIDE RECORDS SUMMARY | 2021-11-18 12:33 | XMS_ITS | Clinical Summary ---
:1945 Author Organization [facility] Address [address] [place] [address] Care Team Providers Name Role Phone Liban [...] (LIPITOR) 20 MG mouth daily tablet fluticasone [place] 1 spray in 0 12/15/2020 Active (FLONASE) [...] counseling Liban Gruber 10/10/2021 [facility] 10/10/2021 Surgery Surgery [...] Diagnosis HEMODIALYSIS SINGLE TREATMENT Routine 10/11/2021 SETUP ([facility]) 4:33 PM CDT HEMODIALYSIS DIALYZER ([facility]) Routine [...] B surface antigen (10/11/2021 7:46 AM CDT) [facility] Method Time Signature Hepatitis B Nonreactive [...] e Number [facility] CORE/PROT/ENDO [facility] [place] [address] Core/Prot/Endo [address] [facility] [address] Building, Room 3-580 (ABNORMAL) Basic metabolic panel (10/11/2021 6:36 AM CDT)Only the most recent of 3 resultswithin the time period is included. [facility] Method Time Signature Sodium 134 133 [...] and gender (Brigette et al., NEJM, DOI: 10.1056/[id number]) Specimen Anatomical Collection Method / Collection Time Recei annie Time (Source) Location / Volume Laterality Blood STRUCTURE OF RIGHT Venipuncture / 10/11/2021 6:36 07/2 07/2021 6:42 HAND / Unknown Unknown AM CDT AM CDT Dallin Farah DO LAB - BLOOD ORDERABLES Performing Organization Address City/State/ZIP Code [place] [address] Care [address] Lab (1st floor, no room number) [...] Address City/State/ZIP Code [place] [address] Care Lab [address] Lab (1st floor, no room number) [...] AM CDT Rhys Duarte MD LAB - [facility] POCT Performing Organization Address City/State/ZIP Code Phon e Number [place] [address] Care Lab [address] Lab (1st floor, no room number) Surgical Pathology Exam (10/10/2021 8:58 AM CDT) Component Value Ref Test Analysis Performed Pathologis t Range Method Time At Signature Case Report Surgical Pathology Report ? Case: [id number] ? RH Authorizing Provider: ??Carb allo, Joce ? Collected: ? 10/10/2021 08:58 AM ? 2 8:22 AM LABORA TORY ? MD Edgard ? CDT Ordering Location: ? [facility] ?? Received: ?10/10/2021 09:42 AM ? [...] was 2 8:22 AM LABORATORY completed at [facility] Case Images 2 8:22 AM [...] Address City/State/ZIP Code [place] [address] Care Lab [address] Lab (1st floor, no room number) UPPER GI ENDOSCOPY (10/10/2021 8:18 AM CDT) Component Value Ref Test Analysis Performed At [facility] Range Method Time Signature Upper GI [facility] RADIOLOGY Endoscopy RESULTS Patient Name: Shaun Ocampo ? Procedure Date: 09/18 8:18 AM ? Account Num flako: [id number] Date of : 1945 ?Admit Type: Inp [...] Model ?# [id number], Endora # 205, SN #[id number] was ?introduced through the mouth, and advanced [...] Note Initiated On: 10/10/2021 8:18 AM MRN: ?[id number] Procedure Date: ? 10/10/2021 8:18:14 AM Total [...] LAB - BLOOD ORDERABLES Performing Organization Address City/[facility]/ZIP Code Phon [place] [address] Care Lab [address] [facility] Lab (1st floor, no room number) Transfuse [...] O Neg RH BLOOD BANK Unit Number [id number] RH BLOOD BANK Unit Status Transfused RH BLOOD BANK Blood Red Blood Cells RH BLOOD Component Type BANK Product Code [id number] RH BLOOD BANK CODING SYSTEM [id number] RH BLOOD BANK UNIT TYPE ISBT 9500 RH BLOOD BANK ISSUE DATE AND [id number] RH BLOOD TIME BANK Specimen (Source) Anatomical Collection Method Collection Time Re ceived Time Location / / Volume Laterality 10/09/2021 6:52 AM CDT Dallin Simons MD BLOOD BANK PRODUCT ORDERABLE S Performing Organization Address [facility]/ZIP Code Phon e Number RH BLOOD BANK [address] [place] [address] EKG 12-lead, tracing only (10/09/2021 12:52 AM CDT) Component Value Ref Range Test Analysis Performed Pathologis t Method Time At Signature Systolic Blood mmHg RADIOLOGY Pressure RESULTS Diastolic Blood mmHg RADIOLOGY Pressure RESULTS Ventricular Rate 70 BPM RADIOLOGY RESULTS Atrial Rate 39 BPM RADIOLOGY RESULTS WI Interval ms RADIOLOGY RESULTS QRS Duration 126 ms RADIOLOGY RESULTS QT 442 ms RADIOLOGY RESULTS QTc 477 ms RADIOLOGY RESULTS P [place] degrees RADIOLOGY RESULTS R AXIS 107 degrees RADIOLOGY RESULTS T [place] 33 degrees RADIOLOGY RESULTS Interpretation Atrial fibrillation RADIO LOGY ECG Right bundle branch block RESU LTS Abnormal ECG No previous ECGs available Confirmed by - EMERGENCY [place] Aravind, PHYSICIAN ([id number]), production editor ANDRÉS HATCH ([id number]) on 10/11/2021 6:42:29 AM Specimen Anatomical Collection Method Collection Time Receive d Time (Source) Location / / Volume Laterality 10/09/2021 12:52 10/11/2021 6:42 AM CDT AM CDT Layne oRssi PA-C ECG ORDERABLES Performing Organization Address City/[facility]/ZIP Code Phon e Number RADIOLOGY RESULTS Asymptomatic [...] the Xpert Xpress SARS-CoV-2 Assay on the [employer]. A dditional information about this [...] COVID-19. This test was validated by the [facility]. This laboratory is certified under the Clinical Laboratory Improvement Amendments of 1988 (CLIA-88) as qualified to perform high complexity laboratory testing. Florentino Ragsdale MD LAB - MICRO GENERAL ORDERABL ES Performing Organization Address City/State/[facility] [place] [address] Care Lab [address] Lab (1st floor, no room number) [...] LAB - BLOOD ORDERABLES Performing Organization Address City/[facility]/ZIP Code [place] [address] Care Lab [address] Lab (1st floor, no room number) [...] LAB - BLOOD ORDERABLES Performing Organization Address City/[facility]/ZIP Code [place] [address] Care Lab [address] Lab (1st floor, no room number) [...] LAB - BLOOD ORDERABLES Performing Organization Address City/[facility]/ZIP Code Phon [place] [address] Care Lab [address] Lab (1st floor, no room number) Adult Type and Screen (10/08/2021 7:02 PM CDT) [facility]ine Method Time Signature ABO/RH(D) O NEG 10/08/2021 RH BLOOD 6:39 PM CDT BANK Antibody Negative Negative 10/08/2021 RH BLOOD Screen 6:39 PM CDT BANK SPECIMEN [id number] 10/08/2021 RH BLOOD EXPIRATION 6:39 PM CDT BANK DATE Specimen Anatomical Collection Method / Collection Time Recei annie Time (Source) Location / Volume Laterality Blood STRUCTURE OF RIGHT Venipuncture / 10/08/2021 7:02 09/18 7:10 UPPER LIMB / Unknown PM CDT PM CDT Unknown Florentino Ragsdale MD LAB - BLOOD BANK TEST ORDER Performing Organization Address City/[facility]/ZIP Code Phon e Number RH BLOOD BANK [address] [place] [address] (ABNORMAL) Comprehensive metabolic panel (10/08/2021 7:02 PM CDT) LP Amina Method Time Signature Sodium 136 133 - [...] equation which includ es age and gender (Fourdrinier Machine Tender et al., NEJM, DOI: [id number]) Specimen Anatomical Collection Method / Collection Time Recei annie Time (Source) Location / Volume Laterality Blood STRUCTURE OF RIGHT Venipuncture / 10/08/2021 7:02 09/18 7:10 UPPER LIMB / Unknown PM CDT PM CDT Unknown Florentino Ragsdale MD LAB - BLOOD ORDERABLES Performing Organization Address City/State/ZIP Code [place] [address] Care Lab [address] Lab (1st floor, no room number) from Last 3 Months Insurance Payer Benefit Plan / Subscriber ID Effective Dates Phone Addre ss Type Group BCBS BCBS MEDICARE [id number] 2018-[place] [phone] [address] [address] Medicare [place]VANTAGE [place] 0 [place] [address] Advance Directives For more information, please contact: [phone] Latest Code Status on File Code Status Date Activated Date Inactivated Comments Full Code 10/11/2021 10:33 AM Code status determined by: Discussion with patient/ legal de cision maker Full Code 10/09/2021 1:43 AM 10/11/2021 10:33 AM All basic a nd advanced life-sustaining interventions ar e performed as appropriate Code status determined by: Discussion with patient/ legal de cision maker Care Teams Resource Conservationist Relationship Specialty Start Date End Date Liban Leos PCP - General Family Medicine 10/08/21 [address] [place], [place] [id number] Ernie Pompa MD MD Nephrology 10/08/21 [address] [place] [address]
--- OUTSIDE RECORDS SUMMARY | 2021-11-18 12:33 | XMS_ITS ---
:[address] [facility], NA DOCUMENT DISCLAIMER The information in the [facility] Continuity of Care Document represents a summary of certain health and medical information. It may not contain the complete medical history for the patient and should be independently verified. The represented time in the document is Eastern Time. PROBLEMS Problem Code Status Onset Date Gastrointestinal hemorrhage, unspecified K92.2 Activ e November 15, 2021 Encounter for immunization Z23 Active Mar [...] ctive (Parsabiv) Dialysis, 3X - push 2021 142022 Week Heparin Sodium Intermittent 1000 Intravenous March [...] 2021 Etelcalcetide Post 10 mg Intravenous September 27, September 26, D iscontinued (Parsabiv) Dialysis, 3X - push 2021 2022 Week Heparin Sodium Bolus, Once, 1999 Intravenous October Discontinued (Porcine) 1,000 Total units - push 2021 Units/mL Systemic treatment minutes 240 Home Medications Medication Instructions Dosage Route Start Date End Date Statu s albuterol sulfate Inhale as 3 ml INHALATION April Active 2.5 mg/3 mL (0.083 directed three 2019 %) times a day as needed allopurinol 100 Take by mouth 1 tablet ORAL April Active mg once a day as 2019 directed atorvastatin 20 Take once a 1 tablet ORAL April Active mg day 2019 cholecalciferol Take by mouth 1 tablet ORAL April Active (vitamin D3) 50 once a day 2019 mcg (2,000 unit) ferrous sulfate Take by mouth 1 mg ORAL April Active 325 mg (65 mg once a day 2019 iron) ipratropium-albut Inhale as 3 ml INHALATION April Active franco 0.5 mg-3 directed every 2019 mg(2.5 mg base)/3 six hours as mL needed lidocaine-priloca TOPICAL August 13, Active ine 2.5-2.5% 2021 metoprolol Take by mouth 1/2 ORAL June 04 ctive succinate 25 mg once a day tablet 2019 Protonix 40 mg Take by mouth 1 tablet ORAL October Active every morning 2021 one hour before meals Renvela 800 mg Take by mouth 1 tablet ORAL October Active once a day 2021 with meals Triphrocaps 1 mg Take by mouth 1 ORAL June 23, Active once a day capsule 2019 Aspir-81 81 mg Take by mouth 1 tablet by mouth October Discontinued once a day as 2021 directed VITAL SIGNS Post-Treatment Vital Signs Vital Sign Value Date / Time Blood Pressure-sitting 94/39 mmHg November 17, 2021 0 6:46 AM Blood Pressure-standing 118/59 mmHg November 17, 2021 06:46 AM Heart Rate 65 beats per minute November 17, 2021 06:4 6 AM Respiratory Rate 16 breaths per minute November 17, 2021 06 :46 AM Temperature 98.0 deg. F November 17, 2021 06:4 6 AM Weight Vital Sign Value Date / Time Estimated Dry Weight 108.5 kg October 27, 2021 11: 59 PM Pre-Dialysis 110.90 kg November 17, 2021 06:4 6 AM Post-Dialysis 107.70 kg November 17, 2021 06:4 6 AM Other Other Value Date / Time Height 173 cm August 25, 2021 12:00 AM [facility] LAB RESULTS Hematology Result Type Result Value Relevant Reference Interpretation Date Range HGB 9.9 g/dL Males: 14.0 - 18.0 [...] mcg/dL - October 20 Platelets 184 1000/mcL 271-004 7181/mcL - October 20, 2021 Iron 46 mcg/dL Females: 30-160 - October 20, 2 022 mcg/dL Males: 45-160 mcg/dL RDW 17.5 [...] October 182021 g/dL; Female: 12.0-16.0 g/dL HGB 9.6 g/dL Males: 14.0 - 18.0 Low October g/dL Females: 12.0 - 16.0 g/dL Hemoglobin x 3 28.8 % Male: 14.0 - 18.0 Low October 192021 g/dL; Female: 12.0-16.0 g/dL HGB 10.2 g/dL Males: 14.0 - 18.0 Low October g/dL Females: 12.0 - 16.0 g/dL Hemoglobin x 3 30.6 % Male: 14.0 - 18.0 Low October 202021 g/dL; Female: 12.0-16.0 g/dL Metabolic/Renal Result Type [...] 20, 2021 BUN/Creat Ratio 7.3 10-20 Low Sharon 03, 2 022 Creatinine, Serum 5.24 mg/dL 0.6-1.3 mg/dL High October BUN 38 mg/dL 6-19 mg/dl High October 20, 2021 HD Adequacy Result Type Result Value Relevant Reference Interpretation Date Range spKt/V (Daugirdas 1.48 No Reference range Normal Oct st 2021 II) provided eKt/V ([place]) 1.29 [...] core Ab Negative Negative - March 24 22 Total (anti-HBc) Hep B Surface Ag Negative [...] Co mpleted Vaccine, Dose 1 of 2 SSYFAVD-N-GTKFP, series October 30, 2019 40.0 mcg Intramuscul ar Completed 4 of 4 YVFLUEN-K-NPXIK, series July 03, 2019 40.0 mcg Intramuscula r Completed 3 of 4 TWDKOPU-H-SNZGL, series June 03, 2019 40.0 mcg Intramuscula r Completed 2 of 4 WEDPKYX-N-LQXGU, series May 03, 2019 40.0 mcg Intramusc ular Completed 1 of 4 TRANSPLANT WAITLIST STATUS No Information on Transplant Waitlist Status ADVANCE DIRECTIVES Directive Description Ordered By Effective Date Resuscitation status Full Code Ernie Aletha Mar 26 2 DIALYSIS TREATMENTS Conventional Hemodialysis Date Pre-Treatment Post-Treatment Duration BFR Dialysate Dialyzer Dialysis Meds Vitals Vitals (hr) (mL/min) Access Admin October Weight 111.00 Weight 108.00 04:00:00 400 2.0 K, 180nre Hemodial ysis-AV Fistula-Standard, Left Upper Arm, Other/Unknown Doxercalciferol (Hectorol); 5mcg,Intravenous - push 26, kg kg 2.5 Ca, Optiflux Heparin S odium (Porcine) 1,000 Units/mL Systemic; 2000units,Intravenous - push 2021 1.0 Mg, Heparin Sodi um (Porcine) 1,000 Units/mL Systemic; 1000units,Intravenous - push 100 Dextrose (G2251) Blood Pressure-sitting 91/43 mmHg Blood Pressure-sitting 10 5/44 mmHg Blood Pressure-standing 102/53 mmHg Blood Pressure-standing 122/54 mmHg Heart Rate 78 beats per Heart Rate 61 beats per minute minute Respiratory Rate 16 breaths per Respiratory Rate 16 breaths per minute minute Temperature 97.7 deg. F Temperature 98.0 deg. F October Weight 111.50 Weight 108.20 04:00:00 400 2.0 K, 180nre Hemodial ysis-AV Fistula-Standard, Left Upper Arm, Other/Unknown Doxercalciferol (Hectorol); 5mcg,Intravenous - push 29, kg kg 2.5 Ca, Optiflux Etelcalce tide (Parsabiv); 7.5mg,Intravenous - push 2 1.0 Mg, Heparin Sodi um (Porcine) 1,000 Units/mL Systemic; 2000units,Intravenous - push 100 Heparin Sodium (Porcine) 1,000 Units/mL Systemic; 1000units,Intravenous - push Dextrose Iron Sucros e (Venofer); 50mg,Intravenous - push (G2251) Blood Pressure-sitting 103/39 mmHg Blood Pressure-sitting 10 4/49 mmHg Blood Pressure-standing 100/41 mmHg Blood Pressure-standing 121/51 mmHg Heart Rate 92 beats per Heart Rate 61 beats per minute minute Respiratory Rate 16 breaths per Respiratory Rate 16 breaths per minute minute Temperature 97.9 deg. F Temperature 98.0 deg. F October Weight 110.90 Weight 107.70 04:01:00 400 2.0 K, 180nre Hemodial ysis-AV Fistula-Standard, Left Upper Arm, Other/Unknown Doxercalciferol (Hectorol); 5mcg,Intravenous - push 31, kg kg 2.5 Ca, Optiflux Etelcalce tide (Parsabiv); 7.5mg,Intravenous - push 2 1.0 Mg, Heparin Sodi um (Porcine) 1,000 Units/mL Systemic; 2000units,Intravenous - push 100 Heparin Sodium (Porcine) 1,000 Units/mL Systemic; 1000units,Intravenous - push Dextrose (G2251) Blood Pressure-sitting 121/56 mmHg Blood Pressure-sitting 94 /39 mmHg Blood Pressure-standing 94/38 mmHg Blood Pressure-standing 118/59 mmHg Heart Rate 82 beats per Heart Rate 65 beats per minute minute Respiratory Rate 16 breaths per Respiratory Rate 16 breaths per minute minute Temperature 97.5 deg. F Temperature 98.0 deg. F
--- OUTSIDE RECORDS SUMMARY | 2021-11-18 12:33 | XMS_ITS | Encounter Summary ---
:1945 Author Organization [place] Address [facility] [place] [address] Care Team Providers Name Role Phone Liban Leos Primary Care Provider Ernie Pompa MD Unavailable Reason for Referral Care Coordination (Routine: Next available opening) - Pending Review Specialty Diagnoses / Procedures Referred By Contact Refer red To Contact Diagnoses Other specified counseling Liban Leos [address] [place] [address] Referral ID Status Reason Start Date Expiration Date Visits V isits Requested Authorized [id number] Pending 10/12/2021 10/12/2022 1 1 Review Encounter Details Date Type Department Care Team Description 10/12/2021 Orders Only [facility] [address] Other specified Care Coordination [address] counseling [address] [place] [id number] [place] [address] Social History Tobacco Use Types [...] Name Type Priority Associated Diagnoses Order S [facility] Referral Routine: Next Other specified Expected: Discharge - available opening counseling 10/12/2021 Referral to CC (Approximate) , Expires: 10/12/2022 documented as of this encounter Visit Diagnoses Diagnosis Other specified counseling documented in this encounter Care Teams Court Bailiff Relationship Specialty Start Date End Date Liban Leos PCP - General Family Medicine 10/08/21 [address] [place] [address] Ernie Pompa MD MD Nephrology 10/08/21 [address] [place] [address] documented as of this encounter
--- OUTSIDE RECORDS SUMMARY | 2021-11-18 12:34 | XMS_ITS | Encounter Summary ---
:1945 Author Organization [facility] Address [address] [place] [address] Care Team Providers Name Role Phone Liban Leos Primary Care Provider Ernie Pompa MD Unavailable Reason for Visit Reason Comments Hypotension Auth/Cert Specialty Diagnoses / Procedures Referred By Contact Refer red To Contact Med Surg Diagnoses UGI bleed UGI bleed 5 Medical Surgical [address] [place], [place] [address] Phone: Fax: Referral ID Status Reason Start Date Expiration Date Visits Requ ested Visits Authorized [id number] 1 1 Encounter Details Date Type Department Care Team Description 10/08/2021 - Hospital [facility]counter [facility] Florentino Ragsdale MD [facility] [address] [place] [address] UGI bleed 10/11/2021 [place] [address] Medical Fadi Viveros, DO [address] [place] [address] Surgical Dallin Simons MD [facility] [address] [place] [address] [address] Burt MD [facility] [address] [place], [place] [id number] [place] [address] Social History Tobacco Use Types [...] 10/11/2021 10:42 AM CDT Hospitalist Discharge Summary [facility] Jonatan Mejia Date of : 1945 Age: [...] daily fluticasone (FLONASE) 50 MCG/ACT nasal spray [place] 1 spray in nostril daily fluticasone-salmeterol (ADVAIR [...] ulcer and??morbid obesity??who??presents to the ED from [place] [facility] due to concerns of hematemesis and melanotic stool. He had just finished HD (took 1.2L) and presented to [place] ED due to concerns of dizziness and hematemesis. ?? Work up at [place] ED showed hgb of 7.5 and soft pressures in the 100's. CT abd pelvis showed normal distal esophagus, stomach and normal liver. No symptoms of obstruction or mass. There were moderate ascites in the dependent abdomen. He received NS bolus (500cc) and 1 unit(s) PRBC and transferred to [facility] ED. Work up in our ED reveals [...] is something he should revisit with his surveillance monitor. He does also have a history of [...] was: 35 Minutes Dallin Farah DO MPH [facility] Hospitalist [facility] [place] [address] 10/11/2021 documented in this encounter Medications at Time of Discharge Medication Sig Dispensed Refills Start Date End Date allopurinol (ZYLOPRIM) Take 100 mg by mouth 0 100 MG tablet daily atorvastatin (LIPITOR) Take 20 mg by mouth 0 11/19 20 MG tablet daily fluticasone (FLONASE) 50 [place] 1 spray in 0 12/15 MCG/ACT nasal [...] walker and gait belt, denies pain, GREY, [id number] on RA. VSS, continues to be anuric. [...] checked every 4 hours. Outpatient Dialysis at [facility] Post treatment report given to [...] as tolerate. No heparin. Plan discussed with parachute accessories attacher and patient at the bedside. Interval History: [...] medications, labs and imaging. Frederick Alcaraz MD [facility] Consultants - Nephrology Office phone :[phone] Pager: [phone] Jovita Blackmon RN - 10/11/2021 7:05 AM [...] Farah DO - 10/10/2021 12:36 PM CDT [facility] Hospitalist Progress Note Name: Jonatan Mejia Provider: [...] morbid obesity??who presents to the ED from [place] [facility] due to concerns of hematemesis and melanotic stool. He had just finished HD (took 1.2L) and presented to [place] ED due to concerns of dizziness and hematemesis. ?? Work up at [place] ED showed hgb of 7.5 and soft pressures in the 100's. CT abd pelvis showed normal distal esophagus, stomach and normal liver. No symptoms of obstruction or mass. There were moderate ascites in the dependent abdomen. He received NS bolus (500cc) and 1 unit(s) PRBC and transferred to [facility] ED. Work up in our ED reveals [...] past 24 hour(s)). Dallin Farah DO MPH [facility] Hospitalist [facility] [place] [address] 10/10/2021 Terry Wolfe MD - 10/10/2021 9:14 [...] mcg/hr (10/09/21 1126) Current active medications and HEALTH CLAIMS EXAMINER medications reviewed, see medication list for details. [...] results for input(s): MAG in the last 35010 hours. No results for input(s): PHOS in the last 30919 hours. Recent Labs Lab Test 10/10/21 0722 [...] Farah DO - 10/09/2021 10:04 AM CDT [facility] Hospitalist Progress Note Name: Jonatan Mejia Provider: [...] morbid obesity??who presents to the ED from [place] [facility] due to concerns of hematemesis and melanotic stool. He had just finished HD (took 1.2L) and presented to [place] ED due to concerns of dizziness and hematemesis. ?? Work up at [place] ED showed hgb of 7.5 and soft pressures in the 100's. CT abd pelvis showed normal distal esophagus, stomach and normal liver. No symptoms of obstruction or mass. There were moderate ascites in the dependent abdomen. He received NS bolus (500cc) and 1 unit(s) PRBC and transferred to [facility] ED. Work up in our ED reveals [...] past 24 hour(s)). Dallin Farah DO MPH [facility] Hospitalist [facility] [place] [address] 10/09/2021 documented in this encounter H&P Notes Layne Rossi PA-C - 10/08/2021 9:27 PM CDT [facility] Admission History and Physical Examination NAME: [...] morbid obesity??who presents to the ED from [place] [facility] due to concerns of hematemesis and melanotic stool. He had just finished HD (took 1.2L) and presented to [place] ED due to concerns of dizziness and hematemesis. Work up at [place] ED showed hgb of 7.5 and soft bps in the 100's. CT abd pelvis showed normal distal esophagus, stomach and normal liver. No sxs of obstruction or mass. There were moderate ascites in the dependent abd. He received NS bolus (500cc) and 1u PRBC and transferred to [facility] ED. Work up in our ED reveals [...] morbid obesity??who presents to the ED from [place] [facility] due to concerns of hematemesis and melanotic stool. He had just finished HD (took 1.2L) and presented to [place] ED due to concerns of dizziness and hematemesis. Work up at [place] ED showed hgb of 7.5 and soft bps in the 100's. CT abd pelvis showed normal distal esophagus, stomach and normal liver. No sxs of obstruction or mass. There were moderate ascites in the dependent abd. He received NS bolus (500cc) and 1u PRBC and transferred to [facility] ED. Work up in our ED reveals [...] 50 MCG/ACT nasal spray Yes Yes Sig: [place] 1 spray in nostril daily fluticasone-salmeterol (ADVAIR [...] -- 16 AST -- 15 Layne MARTIN-C [facility] Medicine October 08, 2021 Securely message with the PO-MO Console (learn more here) Text page via [employer] Paging/Directory Associated attestation - Fadi Viveros DO [...] 11:33 AM CDTAssociated Order(s): GASTROENTEROLOGY IP CONSULT [facility] Gastroenterology Consultation Joce Zamudio MD Patient [...] He had an EGD June 28 at [facility]. Preoperative indication was Brannon's surveillance. 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 Biopsies were negative for Brannon's but did show esophagitis. Stomach showed diffuse gastritis with old blood consistent with erosive gastritis. Moderate duodenitis was noted. This was confirmed on biopsy and suspected be due to nonsteroidals likely aspirin. He reports an EGD in the remote past at [facility] that showed ulcers. He has ascites [...] Medication Sig Last Dose Taking? Auth Provider Roof Bolting Coal Miner End Date allopurinol (ZYLOPRIM) 100 MG tablet [...] Yes fluticasone (FLONASE) 50 MCG/ACT nasal spray [place] 1 spray in nostril daily 10/07/2021 at [...] screen orders. ??? Lisinopril Cough Social History: oJnatan Mejia Family History: No primary relatives with [...] AST 15 ALKPHOS 116 Joce Zamudio MD, [facility] [phone] Terry Wolfe MD - 10/09/2021 10:29 AM CDT Consult Date: 10/09/2021 REQUESTING PHYSICIAN: Dallin Farah MD. ROLL UP GUIDER OPERATOR: Dallas Wolfe MD. REASON FOR CONSULTATION: End-stage [...] lives alone [place]. REVIEW OF SYSTEMS: He feels relatively well [...] MD MT: ETREMT Name: JONATAN MEJIA. Account: [id number] : 1945 Consult Date: 10/09/2021 Document: [id number] Terry Wolfe MD - 10/09/2021 10:24 AM CDTAssociated Order(s): NEPHROLOGY IP CONSULT See dictation. Confirmation # [id number]. documented in this encounter ED Notes Essence Osuna RN - 10/09/2021 1:16 PM CDT Pt received one unit of RBC this morning, tolerated well, no transfusion reaction. Stepdaughter Melanie jin, aware of patient transfer [place] [facility] Advanced to clear liquid diet, tolerating well. Pt will be NPO at midnight for EGD on 10/10. Kaylee Trejo RN - 10/08/2021 11:05 PM CDT [facility] ED Nurse Handoff Report Jonatan Mejia [...] X 1. Lift room needed:No. Bariatric: No Executive Sales Assistant Needed: No Isolation: No. Infection: Not Applicable. [...] Brianna, , and informed her of [facility]. She will visit tomorrow [...] - 10/08/2021 6:30 PM CDT sent from [place] ER. Dialysis patient with hypotension today. Given 500ml and 1 unit PRBC at [place]. Florentino Ragsdale MD - 10/08/2021 6:23 PM [...] pain management Plan of Care - Kaylee Terjo RN - 10/10/2021 2:50 PM CDT Goal [...] RN Pharmacy-Admission Medication History - Erlin Dodd, [facility] - 10/08/2021 10:14 PM CDT Admission medication history interview status for this patient is complete. See [facility] admission navigator for allergy information, prior to admission medications and immunization status. Medication history interview done, indicate source(s): Patient Medication history resources (including written lists, pill bottles, clinic record): Janice Pillbox Pharmacy: [id number] - [place], [place] - [address] [facility] [phone] Changes made to HEALTH CLAIMS EXAMINER medication list: Added: ALL Actions taken by pharmacist (provider contacted, etc):None Additional medication history information:None Medication reconciliation/reorder completed by provider prior to medication history? No Prior to Admission medications Medication Sig Last Dose Taking? Auth Provider Correction End Date allopurinol (ZYLOPRIM) 100 MG tablet [...] Yes fluticasone (FLONASE) 50 MCG/ACT nasal spray [place] 1 spray in nostril daily 10/07/2021 at [...] Diagnosis HEMODIALYSIS SINGLE TREATMENT Routine 10/11/2021 SETUP ([facility]) 4:33 PM CDT HEMODIALYSIS DIALYZER ([facility]) Routine 10/11/2021 2:28 PM CDT IP [...] Specialty [place], [place] [address] Core/Prot/Endo [address] [facility] [address], Room 3-580 (ABNORMAL) CBC with platelets (10/11/2021 6:36 AM CDT) [facility] [...] City/State/ZIP Code [place] [address] Care Lab [address] Lab (1st floor, no room number) (ABNORMAL) Basic metabolic panel (10/11/2021 6:36 AM CDT) [facility] [...] and gender (Brigette et al., NEJM, DOI: 10.1056/[id number]) Specimen Anatomical Collection Method / Collection Time Recei annie Time (Source) Location / Volume Laterality Blood STRUCTURE OF RIGHT Venipuncture / 10/11/2021 6:36 2 07/2021 6:42 HAND / Unknown Unknown AM CDT AM CDT Dallin Farah DO LAB - BLOOD ORDERABLES Performing Organization Address City/State/ZIP Code [place] [address] Care Lab [address] Lab (1st floor, no room number) [...] LAB - BEAKER POCT Performing Organization Address City/[facility]/ZIP Code Phon [place] [address] Care Lab [address] Lab (1st floor, no room number) Surgical Pathology Exam (10/10/2021 8:58 AM CDT) Component Value Ref Test Analysis Performed Pathologis t Range Method Time At Signature Case Report Surgical Pathology Report ? Case: [id number] ? Authorizing Provider: ??Carb allo, Joce ? Collected: ? 10/10/2021 08:58 AM ? 2 8:22 AM LABORA TORY ? MD Edgard ? CDT [facility] Received: ?10/10/2021 09:42 AM [...] entirely submitted in 1 cassette. ([facility]) Microscopic Microscopic examination Description was performed. 2 8:22 AM LABORATORY CDT Special -Negative for H. Pylori orga nisms on immunohistochemical stains. All controls stain appropriately. RH Stains 2 8:22 AM LABORATORY CDT Performing The technical component Labs of this testing was 2 8:22 AM LABORATORY completed at [facility] Laboratory Case Images 2 8:22 [...] Address City/State/ZIP [place] [address] Care Lab [address] [facility] Lab (1st floor, no room number) UPPER GI ENDOSCOPY (10/10/2021 8:18 AM CDT) Component Value Ref Test Analysis Performed At [facility] Range Method Time Signature [facility] RADIOLOGY Endoscopy RESULTS Patient Name: Jonatan Mejia ? Procedure Date: 09/18 8:18 AM ? Account Num flako: [id number] Date of : 1945 ?Admit Type: Inp [...] Model ?# GIF-H190, Endora # 205, SN #[id number] was ?introduced through the mouth, and advanced [...] Note Initiated On: 10/10/2021 8:18 AM MRN: ?[id number] Procedure Date: ? 10/10/2021 8:18:14 AM Total [...] CBC with platelets (10/10/2021 7:22 AM CDT) [facility] Method Time Signature WBC Count 7.2 4.0 [...] City/State/ZIP Code [place] [address] Care Lab [address] Lab (1st floor, no room number) (ABNORMAL) Basic metabolic panel (10/10/2021 7:22 AM CDT) [facility] Method Time Signature Sodium 132 (L) 133 [...] and gender (Brigette et al., NEJM, DOI: 10.1056/[id number]) Specimen Anatomical Collection Method / Collection Time Recei annie Time (Source) Location / Volume Laterality Blood STRUCTURE OF RIGHT Venipuncture / 10/10/2021 7:22 07/2 06/2021 7:31 UPPER LIMB / Unknown AM CDT AM CDT Unknown Dallin Farah DO LAB - BLOOD ORDERABLES Performing Organization Address City/State/ZIP [place] [address] Care Lab [address] [...] LAB - BLOOD ORDERABLES Performing Organization Address City/[facility]/[place] [address] Care Lab [address] Lab (1st floor, no room number) [...] LAB - BLOOD ORDERABLES Performing Organization Address City/[facility]/[place] [address] Care Lab [address] Lab (1st floor, no room number) [...] LAB - BLOOD ORDERABLES Performing Organization Address City/[facility]/[place] [address] Care Lab [address] Lab (1st floor, no room number) Transfuse red blood cells (unit) No special requirements (10/09/2021 11:51 AM CDT) Dallin Simons MD BLOOD TRANSFUSION ORDERABLES Transfuse red blood cells (unit), 1 Units No special requirements (10/09/2021 11:51 AM CDT) Dallin Simons MD BLOOD TRANSFUSION ORDERABLES (ABNORMAL) CBC with platelets (10/09/2021 9:12 AM CDT) [facility] gist Method Time Signature WBC Count [...] City/State/ZIP Code [place] [address] Care Lab [address] Lab (1st floor, no room number) (ABNORMAL) Basic metabolic panel (10/09/2021 9:12 AM CDT) [facility] [...] and gender (Brigette et al., NEJM, DOI: 10.1056/[id number]) Specimen Anatomical Collection Method / Collection Time Recei annie Time (Source) Location / Volume Laterality Blood STRUCTURE OF RIGHT Venipuncture / 10/09/2021 9:12 07/2 05/2021 9:34 HAND / Unknown Unknown AM CDT AM CDT Layne Rossi PA-C LAB - BLOOD ORDERABLES Performing Organization Address City/State/ZIP Code [place] [address] Care Lab [address] Lab (1st floor, no room number) Prepare red blood cells (unit) (10/09/2021 6:52 AM CDT) [facility] Method Time Signature CROSSMATCH Compatible RH BLOOD BANK UNIT ABO/RH O Neg RH BLOOD BANK Unit Number [id number] RH BLOOD BANK Unit Status Transfused RH BLOOD BANK Blood Red Blood Cells RH BLOOD Component Type BANK Product Code [id number] RH BLOOD BANK CODING SYSTEM [id number] RH BLOOD BANK UNIT TYPE ISBT 9500 RH BLOOD BANK ISSUE DATE AND [id number] RH BLOOD TIME BANK Specimen (Source) Anatomical Collection Method Collection Time Re ceived Time Location / / Volume Laterality 10/09/2021 6:52 AM CDT Dallin Simons MD BLOOD BANK PRODUCT ORDERABLE S Performing Organization Address City/State/ZIP Code Phon e Number RH BLOOD BANK [address] [place] [address] Transfuse red blood cells (unit) No special [...] RESULTS Atrial Rate 39 BPM RADIOLOGY RESULTS LA Interval ms RADIOLOGY RESULTS QRS Duration 126 ms RADIOLOGY RESULTS QT 442 ms RADIOLOGY RESULTS QTc 477 ms RADIOLOGY RESULTS P [place] degrees RADIOLOGY RESULTS R AXIS 107 degrees RADIOLOGY RESULTS T [place] 33 degrees RADIOLOGY RESULTS Interpretation Atrial fibrillation RADIO LOGY ECG Right bundle branch block RESU LTS Abnormal ECG No previous ECGs available Confirmed by - EMERGENCY [place] PHYSICIAN ([id number]), city editor ANDRÉS HATCH ([id number]) on 10/11/2021 6:42:29 AM Specimen Anatomical Collection Method Collection Time Receive d Time (Source) Location / / Volume Laterality 10/09/2021 12:52 10/11/2021 6:42 AM CDT AM CDT Layne Ray Rossi PA-C ECG ORDERABLES Performing Organization Address City/State/ZIP Code Phon e Number RADIOLOGY RESULTS Prepare red blood cells (unit) (10/08/2021 11:46 PM CDT) [facility] gist Method Time Signature CROSSMATCH Compatible RH BLOOD BANK UNIT ABO/RH O Neg RH BLOOD BANK Unit Number [id number] RH BLOOD BANK Unit Status Transfused RH BLOOD BANK Blood Red Blood Cells RH BLOOD Component Type BANK Product Code [id number] RH BLOOD BANK CODING SYSTEM [id number] RH BLOOD BANK UNIT TYPE ISBT 9500 RH BLOOD BANK ISSUE DATE AND [id number] RH BLOOD TIME BANK Specimen (Source) Anatomical Collection Method Collection Time Re ceived Time Location / / Volume Laterality 10/08/2021 11:46 PM CDT Layne Rossi PA-C BLOOD BANK PRODUCT ORDERABLE S Performing Organization Address City/State/ZIP Code Phon e Number RH BLOOD BANK [address] [place] [address] (ABNORMAL) Hemoglobin (10/08/2021 10:47 PM CDT) athologist [...] City/State/ZIP Code [place] [address] Care Lab [address] [facility] Lab (1st floor, no room number) (ABNORMAL) [...] LAB - BEAKER POCT Performing Organization Address City/[facility]/ZIP Code [place] [address] Care Lab [address] Lab (1st floor, no room number) [...] the Xpert Xpress SARS-CoV-2 Assay on the [employer]. A dditional information about this [...] COVID-19. This test was validated by the [facility]. This laboratory is certified under the Clinical Laboratory Improvement Amendments of 1988 (CLIA-88) as qualified to perform high complexity laboratory testing. Florentino Ragsdale MD LAB - MICRO GENERAL ORDERABL ES Performing Organization Address City/[facility]/ZIP [place] [address] Care Lab [address] Lab (1st floor, no room number) [...] Address City/State/ZIP [place] [address] Care Lab [address] Lab (1st floor, no room number) [...] Address City/State/ZIP [place] [address] Care Lab [address] Lab (1st floor, no room number) [...] City/State/ZIP Code [place] [address] Care Lab [address] [employer] Lab (1st floor, no room number) Adult Type and Screen (10/08/2021 7:02 PM CDT) [facility] Mpayy Method Time Signature ABO/RH(D) O NEG 10/08/2021 RH BLOOD 6:39 PM CDT BANK Antibody Negative Negative 10/08/2021 RH BLOOD Screen 6:39 PM CDT BANK SPECIMEN [id number] 10/08/2021 RH BLOOD EXPIRATION 6:39 PM CDT BANK DATE Specimen Anatomical Collection Method / Collection Time Recei annie Time (Source) Location / Volume Laterality Blood STRUCTURE OF RIGHT Venipuncture / 10/08/2021 7:02 09/18 7:10 UPPER LIMB / Unknown PM CDT PM CDT Unknown Florentino Ragsdale MD LAB - BLOOD BANK TEST ORDER Performing Organization Address [facility]/ZIP Code Phon e Number RH BLOOD BANK [address] [place] [address] (ABNORMAL) Comprehensive metabolic panel (10/08/2021 7:02 PM CDT) [facility] Mpayy Method Time Signature Sodium 136 133 - [...] and gender (Brigette et al., NEJM, DOI: 10.1056/[id number]) Specimen Anatomical Collection Method / Collection Time Recei annie Time (Source) Location / Volume Laterality Blood STRUCTURE OF RIGHT Venipuncture / 10/08/2021 7:02 09/18 7:10 UPPER LIMB / Unknown PM CDT PM CDT Unknown Florentino Ragsdale MD LAB - BLOOD ORDERABLES Performing Organization Address City/State/ZIP [place] [phone] Care Lab [address] [facility] Lab (1st floor, no room number) [...] (ROCEPHIN) 2 g vial to attach to [facility] Bag 8:34 PM CDT 2 g [...] MIN PRN, op ioid reversal, Starting on [place] 10/10/21 at 1011, Administer intravenous route when [...] Essence Osuna, OVI)1126 (Rate/Dose Verify - Provider: Essnece Osuna, OVI) 0715 (Paused - Provider: Kaylee [...] MIN PRN, op ioid reversal, Starting on [place] 10/10/21 at 1011, Administer intravenous route when [...] 2 MIN PRN, opioid reversal, Starting on [place] 10/10/21 at 1011, Administer intramuscular if an [...] 0143 documented in this encounter Care Teams Php Software Engineer Relationship Specialty Start Date End Date Liban Leos PCP - General Family Medicine 10/08/21 [address] [place] [address] Ernie Pompa MD MD Nephrology 10/08/21 [address] [place] [address] documented as of this encounter
--- OUTSIDE RECORDS SUMMARY | 2021-11-18 12:34 | XMS_ITS | Encounter Summary ---
:1945 Author Organization [facility] Address [facility] [place] [address] Care Team Providers Name Role Phone Unavailable Primary Care Provider Unavailable Encounter Details Date Type Department Care Team Description 04/07/2019 Records - [facility] [address] [place] [phone] [place]ASAN [place], [place] [phone] [id number] Social History Tobacco Use Types Packs/Day Years Used Date Never Assessed Sex Assigned at Date Recorded Not on file documented as of this encounter Plan of Treatment Not on filedocumented as of this encounter Procedures Procedure Name Priority Date/Time Associated Diagnosis Comme nts BASIC METABOLIC Routine 04/08/2019 7:45 AM Result s for this PANEL LINOTYPER procedure are i n the results section. CBC WITH PLATELETS Routine 04/08/2019 7:45 AM Res ults for this LINOTYPER procedure are i n the results section. documented in this encounter Results (ABNORMAL) Basic metabolic panel (04/08/2019 7:45 AM LINOTYPER) [facility] Method Time Signature Sodium 137 136 [...] >60 04/08/2019 HEALTH Black mL/min/1.7 10:[address] LABORATORY GFR Estimate 16 (L) >60 04/08/2019 HEALTH mL/min/1.7 10:[address] LABORATORY Specimen Anatomical Collection Method / Collection Time Recei annie Time (Source) Location / Volume Laterality Blood specimen STRUCTURE OF RIGHT Venipuncture / 04/08/2019 7:45 (specimen) UPPER LIMB / Unknown AM LINOTYPER 10:22 AM LINOTYPER Unknown Narrative [facility] - 04/08/2019 10:53 AM LINOTYPER Fasting Glucose reference range is 70-99 mg/dL per [employer] (ADA) maryan marrero. Alison Hollins LAB - BLOOD ORDERABLES Performing Organization Address City/State/ZIP Code Phon e Number [facility] [place] [id number] [place] [address] [place] [address], [facility] (ABNORMAL) CBC with platelets (04/08/2019 7:45 AM LINOTYPER) [facility] gist Method Time Signature WBC 5.2 4.0 - 11.0 04/08/2019 M [facility] thou/uL 10:32 AM [facility] RBC Count 2.52 (L) 4.40 - 04/08/2019 HEALTH 6.20 10:32 AM [facility] LAB[facility]AT[facility] Hemoglobin 7.9 (L) 14.0 - 04/08/2019 HEALTH 18.0 g/dL 10:32 AM [facility] Hematocrit 25.2 (L) 40.0 - 04/08/2019 HEALTH 54.0 % 10:32 AM [facility] MCV 100 80 - 100 04/08/2019 HEALTH fL 10:32 AM [facility] MCH 31.3 27.0 - 04/08/2019 HEALTH 34.0 pg 10:32 AM [facility] MCHC 31.3 (L) 32.0 - 04/08/2019 HEALTH 36.0 g/dL 10:32 AM [facility] RDW 19.4 (H) 11.0 - 04/08/2019 HEALTH 14.5 % 10:32 AM [facility] Platelet Count 140 140 - 440 04/08/2019 HEALTH [facility]/uL 10:32 AM [facility] Mean Platelet 10.4 8.5 - 12.5 04/08/2019 HEALTH Volume fL 10:32 AM [facility] Specimen Anatomical Collection Method / Collection Time Recei annie Time (Source) Location / Volume Laterality Blood specimen STRUCTURE OF RIGHT Venipuncture / 04/08/2019 7:45 (specimen) UPPER LIMB / Unknown AM LINOTYPER 10:22 AM LINOTYPER Unknown Alison Hollins LAB - BLOOD ORDERABLES Performing Organization Address City/State/ZIP Code Phon e [place] [address] [facility] [address] [facility] documented in this encounter Visit Diagnoses Not on filedocumented in this encounter
--- OUTSIDE RECORDS SUMMARY | 2021-11-18 12:34 | XMS_ITS | Clinical Summary ---
:1945 Author Organization [facility] Address [address] [place] [address] Phone Care Team Providers Name Role Phone Unavailable Primary Care Provider Unavailable Encounters Date Type Specialty Care Team Description 11/17/2021 Orders Only NephErnie Mccoy MD 11/10/2021 Orders Only NephErnie Mccoy MD 11/10/2021 Treatment Ernie Pompa MD 11/03/2021 Orders Only NephErnie Mccoy MD 10/27/2021 Orders Only NephErnie Mccoy MD 10/27/2021 Treatment Ernie Pompa MD 10/20/2021 Orders Only NephErnie Mccoy MD 10/13/2021 Orders Only NephErnie Mccoy MD 10/13/2021 Treatment Ernie Pompa MD 10/06/2021 Orders Only NephErnie Mccoy MD 09/29/2021 Orders Only NephErnie Mccoy MD 09/29/2021 Treatment Erine Pompa MD 09/22/2021 Orders Only NephErnie Mccoy [...] MD 08/18/2021 Orders Only NephErnie Mccoy MD from Last [...] Date/Time Associated Diagnosis Comme nts HEMATOLOGY Routine 11/17/2021 Results for thi s procedure are i n the results section . HEMATOLOGY Routine 11/10/2021 Results for thi s procedure are i n the results section . HEMATOLOGY Routine 11/03/2021 Results for thi s [...] from Last 3 Months Results (ABNORMAL) HEMATOLOGY (11/17/2021)Only the most recent of14 resultswithin the time period is included. Analysis Performed At Patho logist Time Signature Hemoglobin 10.2 (L) 14.0 - [facility] 18.0 g/dL [facility] Hemoglobin x 3 30.6 (L) 42.0 - [facility] 54.0 % [facility] Specimen (Source) Anatomical Collection Method Collection Time Re ceived Time Location / / Volume Laterality 11/17/2021 11/18/2021 3:51 AM CDT Narrative [facility] - 11/18/2021 Unless otherwise specified, test(s) performed at: [facility], [facility] [employer] [place] [address] DOUBLE END SEWER: Alhaji Noguera M.D., Ph.D For any [...] 10/28/2021 Unless otherwise specified, test(s) performed at: [facility], [facility] [place] [address] DOUBLE END SEWER: Alhaji Noguera M.D., Ph.D For any [...] 10/21/2021 Unless otherwise specified, test(s) performed at: [facility], [address] [place] [address] [place] [address] DOUBLE END SEWER: lAhaji Noguera M.D., Ph.D For any questions, please call customer service at FREQUENCY:MONTHLY Resulting Agency Comment Specimen source: Plasma Ernie Pompa MD LAB BLOOD ORDERABLES Performing Organization Address City/State/ZIP Code Phon e Number [facility] IMMUNO CHEMISTRY (10/20/2021)Only the most recent of3 resultswithin the time period is included. P athologist Signature Hep B Surface Negative Negative [facility] Ag [facility] Specimen (Source) Anatomical Collection Method Collection Time Re ceived Time Location / / Volume Laterality 10/20/2021 10/21/2021 3:50 AM CDT Narrative [facility] - 10/21/2021 Unless otherwise specified, test(s) performed at: [facility], [address] [facility] [place] [address] DOUBLE END SEWER: Alhaji Noguera M.D., Ph.D For any questions, please call customer service at FREQUENCY:MONTHLY Resulting Agency Comment Specimen source: Plasma Ernie Pompa MD LAB BLOOD ORDERABLES Performing Organization Address City/State/ZIP Code Phon e Number [facility]ra [facility] Lab Results (10/20/2021)Only the most recent of4 resultswithin the time period is included. athologist Signature eNPCR 0.70 [facility] spKt/V Gotch [...] [facility]/ZIP Code Phon e Number [facility] SPECIAL CHEMISTRY [...] ES Performing Organization Address City/[facility]/ZIP Code Phon e Number [facility] from Last 3 Months Insurance Payer Benefit Plan Subscriber ID Effective Dates Phone Address Type / Group [place] [id number] 2018-Sameer [phone] [address] [address] MEDICARE ADV ([id number]) t [address] [phone] ([place]) [place] [address]
--- OUTSIDE RECORDS SUMMARY | 2021-11-18 12:34 | XMS_ITS | Encounter Summary ---
:1945 Author Organization [place] Address [address] [place] [address] Care Team Providers Name Role Phone Liban [...] on filedocumented in this encounter Care Teams Method Consultant Relationship Specialty Start Date End Date Liban Leos PCP - General Family Medicine 10/08/21 [address] [place], [place] [phone] Ernie Pompa MD MD Nephrology 10/08/21 [address] [place] [address] documented as of this encounter
--- OUTSIDE RECORDS SUMMARY | 2021-11-18 12:34 | XMS_ITS | Encounter Summary ---
:1945 Author Organization [facility] Address [address] [place] [address] Care Team Providers Name Role Phone Unavailable Primary Care Provider Unavailable Encounter Details Date Type Department Care Team Description 10/27/2021 Orders Only [facility] Ernie Guzmán MD [phone] [place] [address] [place], [place] [phone] (Wo rk) Social History Tobacco Use [...] 10/28/2021 Unless otherwise specified, test(s) performed at: [facility], [address] [place] [address], [place] [address] AUCTIONEER AUTOMOBILE: Alhaji Noguera M.D., Ph.D For any questions, [...] 10/28/2021 Unless otherwise specified, test(s) performed at: [facility], [address] [place] [address] [place] [address] AUCTIONEER AUTOMOBILE: Alhaji Noguera M.D., Ph.D For any questions, please call customer service at FREQUENCY:OTHER Resulting Agency Comment Specimen source: Blood Ernie Pompa MD LAB BLOOD ORDERABLES Performing Organization Address City/[facility] Phon e Number [facility] documented in this encounter Visit Diagnoses Not on filedocumented in this encounter
--- OUTSIDE RECORDS SUMMARY | 2021-11-18 12:34 | XMS_ITS | Encounter Summary ---
:1945 Author Organization [facility] Address [address] [place] [address] Care Team Providers Name Role Phone Unavailable Primary Care Provider Unavailable Encounter Details Date Type Department Care Team Description 11/03/2021 Orders Only [facility] Ernie Guzmán MD [phone] [place] [address] [place], [place] [phone] (Wo rk) Social History Tobacco Use [...] 11/04/2021 Unless otherwise specified, test(s) performed at: [facility], [address] [place] [address], [place] [address] MANAGER FLIGHT: Alhaji Noguera M.D., Ph.D For any questions, please call customer service at FREQUENCY:OTHER Resulting Agency Comment Specimen source: Blood Ernie Pompa MD LAB BLOOD ORDERABLES Performing Organization Address City/State/ZIP Code Phon e Number [facility] documented in this encounter Visit Diagnoses Not on filedocumented in this encounter
--- OUTSIDE RECORDS SUMMARY | 2021-11-18 12:34 | XMS_ITS | Encounter Summary ---
:1945 Author Organization [facility] Address [address] [place] [address] Care Team Providers Name Role Phone Unavailable Primary Care Provider Unavailable Encounter Details Date Type Department Care Team Description 11/10/2021 Orders Only [facility] Ernie Guzmán MD [address] [place] [address] [place], [place] [phone] (Wo rk) Social History Tobacco Use Types Packs/Day Years Used Date Smoking Tobacco: Unknown Comments: Smoking History Info:Patient n ot screened Sex Assigned at Date Recorded Not on file documented as of this encounter Plan of Treatment Not on filedocumented as of this encounter Procedures Procedure Name Priority Date/Time Associated Diagnosis Comme nts HEMATOLOGY Routine 11/10/2021 Results for thi s procedure are in the resu lts section. documented in this encounter Results (ABNORMAL) HEMATOLOGY (11/10/2021) Analysis Performed At Patho logist Time Signature Hemoglobin 9.6 (L) 14.0 - [facility] 18.0 g/dL [facility] Hemoglobin x 3 28.8 (L) 42.0 - [facility] 54.0 % [facility] Specimen (Source) Anatomical Collection Method Collection Time Re ceived Time Location / / Volume Laterality 11/10/2021 11/11/2021 10:3 6 AM CDT Narrative [facility] - 11/11/2021 Unless otherwise specified, test(s) performed at: [facility], [address] [place] [address], [place] [address] PAPER CUP MACHINE OPERATOR: Alhaji Noguera M.D., Ph.D For any questions, please call customer service at FREQUENCY:OTHER Resulting Agency Comment Specimen source: Blood Ernie Pompa MD LAB BLOOD ORDERABLES Performing Organization Address City/State/ZIP Code Phon e Number [facility] documented in this encounter Visit Diagnoses Not on filedocumented in this encounter
--- OUTSIDE RECORDS SUMMARY | 2021-11-18 12:34 | XMS_ITS | Encounter Summary ---
:1945 Author Organization [facility] Address [address] [place] [address] Care Team Providers Name Role Phone Liban Leos Primary Care Provider Ernie Pompa MD Unavailable Reason for Visit Auth/Cert Specialty Diagnoses / Procedures Referred By Contact Refer red To Contact Med Surg Diagnoses UGI bleed UGI bleed Rh 5 [facility] [address] [place], [place] [address] Phone: Fax: Referral ID Status Reason Start Date Expiration Date Visits Requ ested Visits Authorized [id number] 1 1 Encounter Details Date Type Department Care Team Description 10/10/2021 Anesthesia Event [facility] Olvin Mosley [facility] MD [place] [address] [place], [place] ANESTHESIA [phone] [address] [address] [place], [place] [address] Anesthesia Record Procedure Summary Procedure Name Responsible Anesthesia Start Anesthesia Stop Anesthesiologist Time Time ESOPHAGOGASTRODUODENOSCOPY Herman Mosley 10/10/21 0842 09/18 07/09 0918 biopsies (N/A Mouth) MD [place] Events Date Time Event Comment 10/10/2021 0830 DEPARTMENT OF NATURAL RESOURCES OFFICER Ready for Procedure 0842 An Start 0842 Present 0845 AN REASSESS I attest that I have identified and re-evaluated the patient immediately before the induction of anesthesia and I am satisfied that t he anesthetic plan is suitable for the patient's condition and procedure. The f irst vital signs recorded are pre- inducti on. Yamilka Bear APRN DEPARTMENT OF NATURAL RESOURCES OFFICER 0845 An Start Data 0857 Present 0912 [...] 0918 documented in this encounter Care Teams Multimedia Production Assistant Relationship Specialty Start Date End Date Liban Leos PCP - General Family Medicine 10/08/21 [address] [place] [address] Ernie Pompa MD MD Nephrology 10/08/21 [address] [place] [address] documented as of this encounter
--- OUTSIDE RECORDS SUMMARY | 2021-11-18 12:34 | XMS_ITS | Encounter Summary ---
:1945 Author Organization [facility] Address [address] [place] [address] Care Team Providers Name Role Phone Unavailable Primary Care Provider Unavailable Encounter Details Date Type Department Care Team Description 11/10/2021 Treatment [facility] Ernie Guzmán MD [address] [place] [address] [place], [place] [phone] (Wo rk) Social History Tobacco Use Types Packs/Day Years Used Date Smoking Tobacco: Unknown Comments: Smoking History Info:Patient n ot screened Sex Assigned at Date Recorded Not on file documented as of this encounter Miscellaneous Notes Dialysis Note - Ernie Pompa MD - 11/10/2021 11:27 AM CDT Date: Nov 10, 2021 Patient Name: Shaun Ocampo : 1945 Chart #: [id number] Sex: M This patient was personally seen [...] AM ) BP (sit): 111/39 AP(-) / EDUCATION DEAN: 195/161 Pulse: 62 Chairside data as of [...] Values 08/27/2021 05/28/2021 04/23/2021 Access Flow [id number] Treatment Medication Orders Medication Sig Start Date [...] mcg IVP Every 2 weeks 10/27/2021 10/26/2022 GUILLOTINE TRIMMER: Ernie Pompa MD LOCATION: [phone] SCHEDULE: -- 2nd Shift ACCESS: EDW: kg. [...] after extra UF run last week at [facility]. BP adequate, challengingEDW today. His breathing is improved. Also went to wound care clinic at [facility] and they dressedwounds and he has follow-up and instructions for dressings and cares. He has no new symptoms and otherwise feels well. 10/13: Had GI bleeding on Monday, went to ER after dialysis, admitted at [facility], had 3u blood, EGDwithout obvious source, [...] and do periodic extra UF treatments at [facility] rather than risk more hypotension post-tx with use of midodrine and additional UF during treatments. He has fistulagram last week, went well and access working well since. 08/11: Continues to have problems with fluid gains. we have spent considerable time discussing this, he is trying to work on this but can't seem to avoid large gains. Will go to [facility] for UF tomorrow, needs extra treatments every 2 weeks it looks like to maintain EDW. He does get SOB when >5K over dry weight in particular. 07/21/21: Continues to struggle with fluid gains, extra UF run scheduled tomorrow at [facility]. He does feel more SOB when fluid overloaded. No new symptoms otherwise, he is enjoying the nicer weather which allows him to do more activity and not sit at home and drink fluids which he thinks will help with IDWG's. 07/14/21: Continues to have high gains, unfortunately [facility] without staff to open tomorrow for extra [...] improving. Fluid gains continue to be high, [facility] not open on this week, says he will do his best withlimiting salt/fluid. HE does feel SOB with exertion with extra fluid on, no orthopnea. 05/26/21: Has SOB when >5 Kg over dry weight, extra run last week at [facility] helped. Trying his best with fluid restriction. [...] He had extra run prior to [facility] and ran WThF that week an got [...] extra run and we discussed going to [facility] tomorrow for UF only run and he [...] again today, may need extra run at [facility] if can't get down over next week. 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 06/10: Doing well overall, no new complaints, [...] Went to Urgent care -> ER in [place] yesterday,CT with R hydro but no obstructive [...] He had infiltration last week, dialyzed at [facility] on Sat and went well, access [...] (09/13/21) Vascular Access Assessment: Type of access: [email or web address] Surgeon - Lary KUMARW 08/2021: fistulagram at [facility] with angioplasty of stenosis completed Impression and [...]
--- OUTSIDE RECORDS SUMMARY | 2021-11-18 12:34 | XMS_ITS | Encounter Summary ---
:1945 Author Organization [place] Address [facility] [place] [address] Care Team Providers Name Role Phone Liban Leos Primary Care Provider Ernie Pompa MD Unavailable Reason for Visit Reason Comments Hypotension Auth/Cert Specialty Diagnoses / Procedures Referred By Contact Refer red To Contact Med Surg Diagnoses UGI bleed UGI bleed 5 Medical Surgical [address] [place], [place] [address] Phone: Fax: Referral ID Status Reason Start Date Expiration Date Visits Requ ested Visits Authorized [id number] 1 1 Encounter Details Date Type Department Care Team Description 10/10/2021 Surgery [facility] Lizz, ESOPHAGOGA STRODUODENOSCOPY [facility] [facility] Joce biopsies Services MD Ed[place] [address] [place] [address] [address] [place] [address] Surgery Details Date/Time Status Location [...] CDT Pulse 72 10/10/2021 7:20 AM per receptionist/telephone operator CDT Temperature 36.5 ??C (97.7 ??F) 10/09/2021 [...] 10/11/2021 10:42 AM CDT Hospitalist Discharge Summary [facility] Jonatan Mejia Date of : 1945 [...] daily fluticasone (FLONASE) 50 MCG/ACT nasal spray [place] 1 spray in nostril daily fluticasone-salmeterol (ADVAIR [...] ulcer and??morbid obesity??who??presents to the ED from [place] [facility] due to concerns of hematemesis and melanotic stool. He had just finished HD (took 1.2L) and presented to [place] [facility] due to concerns of dizziness and hematemesis. ?? Work up at [place] [facility] showed hgb of 7.5 and soft pressures in the 100's. CT abd pelvis showed normal distal esophagus, stomach and normal liver. No symptoms of obstruction or mass. There were moderate ascites in the dependent abdomen. He received NS bolus (500cc) and 1 unit(s) PRBC and transferred to [facility] ED. Work up in our ED [...] is something he should revisit with his mental health case manager. He does also have a history of [...] discharge was: 35 Minutes Dallin Farah DO [facility] Hospitalist [place] [address] 10/11/2021 documented in this encounter Medications at Time of Discharge Medication Sig Dispensed Refills Start Date End Date allopurinol (ZYLOPRIM) Take 100 mg by mouth 0 100 MG tablet daily atorvastatin (LIPITOR) Take 20 mg by mouth 0 11/19 20 MG tablet daily fluticasone (FLONASE) 50 [place] 1 spray in 0 12/15 MCG/ACT nasal [...] walker and gait belt, denies pain, GREY, [id number] on RA. VSS, continues to be anuric. [...] to treatment See Adult Hemodialysis flowsheet in [facility] for further details and post assessment. Machine water alarm in place and functioning. Transducer pods intact and checked every 15min. Pt returned via bed. Chlorine/Chloramine water system checked every 4 hours. Outpatient Dialysis at [facility] Post treatment report given to Delilah Goldstein [...] as tolerate. No heparin. Plan discussed with changeover operator and patient at the bedside. Interval History: [...] medications, labs and imaging. Frederick Alcaraz MD [facility] - Nephrology Office phone :[phone] Pager: [phone] Jovita Blackmon RN - 10/11/2021 7:05 AM [...] Farah DO - 10/10/2021 12:36 PM CDT [facility] Hospitalist Progress Note Name: Jonatan Mejia [...] morbid obesity??who presents to the ED from [place] [facility] due to concerns of hematemesis and melanotic stool. He had just finished HD (took 1.2L) and presented to [place] [facility] due to concerns of dizziness and hematemesis. ?? Work up at [place] ED showed hgb of 7.5 and soft pressures in the 100's. CT abd pelvis showed normal distal esophagus, stomach and normal liver. No symptoms of obstruction or mass. There were moderate ascites in the dependent abdomen. He received NS bolus (500cc) and 1 unit(s) PRBC and transferred to [facility] ED. Work up in our ED [...] 24 hour(s)). Dallin Farah DO [facility] [place] [address] 10/10/2021 Terry Wolfe MD - 10/10/2021 9:14 [...] mcg/hr (10/09/21 1126) Current active medications and DEPUTY PROGRAM MANAGER medications reviewed, see medication list for details. [...] results for input(s): MAG in the last 85084 hours. No results for input(s): PHOS in the last 63759 hours. Recent Labs Lab Test 10/10/21 0722 [...] Farah DO - 10/09/2021 10:04 AM CDT [facility] Hospitalist Progress Note Name: Jonatan Mejia [...] morbid obesity??who presents to the ED from [place] [facility] due to concerns of hematemesis and melanotic stool. He had just finished HD (took 1.2L) and presented to [place] [facility] due to concerns of dizziness and hematemesis. ?? Work up at [place] [facility] showed hgb of 7.5 and soft pressures in the 100's. CT abd pelvis showed normal distal esophagus, stomach and normal liver. No symptoms of obstruction or mass. There were moderate ascites in the dependent abdomen. He received NS bolus (500cc) and 1 unit(s) PRBC and transferred to [facility] ED. Work up in our ED [...] 24 hour(s)). Dallin Farah DO [facility] Hospitalist Clark Lentz [facility] [place] [address] 10/09/2021 documented in this encounter H&P Notes Layne Rossi PA-C - 10/08/2021 9:27 PM CDT [facility] Admission History and Physical Examination [...] morbid obesity??who presents to the ED from [place] [facility] due to concerns of hematemesis and melanotic stool. He had just finished HD (took 1.2L) and presented to [place] [facility] due to concerns of dizziness and hematemesis. Work up at [place] [facility] showed hgb of 7.5 and soft bps in the 100's. CT abd pelvis showed normal distal esophagus, stomach and normal liver. No sxs of obstruction or mass. There were moderate ascites in the dependent abd. He received NS bolus (500cc) and 1u PRBC and transferred to [facility] ED. Work up in our ED [...] morbid obesity??who presents to the ED from [place] [facility] due to concerns of hematemesis and melanotic stool. He had just finished HD (took 1.2L) and presented to [place] [facility] due to concerns of dizziness and hematemesis. Work up at [place] [facility] showed hgb of 7.5 and soft bps in the 100's. CT abd pelvis showed normal distal esophagus, stomach and normal liver. No sxs of obstruction or mass. There were moderate ascites in the dependent abd. He received NS bolus (500cc) and 1u PRBC and transferred to [facility] ED. Work up in our ED [...] 50 MCG/ACT nasal spray Yes Yes Sig: [place] 1 spray in nostril daily fluticasone-salmeterol (ADVAIR [...] 16 AST -- 15 Layne Rossi PA-C [facility] Medicine October 08, 2021 Securely message with the Piccs[employer] Console (learn more here) Text page via [facility] Paging/Directory Associated attestation - Fadi Viveros DO [...] 11:33 AM CDTAssociated Order(s): GASTROENTEROLOGY IP CONSULT [facility] Gastroenterology Consultation Joce Zamudio MD [...] He had an EGD June 28 at [facility]. Preoperative indication was Brannon's surveillance. 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 Biopsies were negative for Brannon's but did show esophagitis. Stomach showed diffuse gastritis with old blood consistent with erosive gastritis. Moderate duodenitis was noted. This was confirmed on biopsy and suspected be due to nonsteroidals likely aspirin. He reports an EGD in the remote past at [facility] that showed ulcers. He has ascites [...] Yes fluticasone (FLONASE) 50 MCG/ACT nasal spray [place] 1 spray in nostril daily 10/07/2021 at [...] 15 ALKPHOS 116 Joce Zamudio MD, FACG [facility] [phone] Terry Wolfe MD - 10/09/2021 10:29 AM CDT Consult Date: 10/09/2021 REQUESTING PHYSICIAN: Dallin Farah MD. MCAT TUTOR: Dallas Wolfe MD. REASON FOR CONSULTATION: End-stage renal disease, on hemodialysis. HISTORY OF PRESENT ILLNESS: This is a 73-year-old with end-stage renal disease who dialyzes Monday, Monday, Monday. [place]. He drives [...] lives alone in a [place]. REVIEW OF SYSTEMS: He feels relatively [...] ETREMT Name: JONATAN MEJIA. MRN: [id number] Account: [id number] : 1945 Consult Date: 10/09/2021 Document: [id number] Terry Wofle MD - 10/09/2021 10:24 AM CDTAssociated Order(s): NEPHROLOGY IP CONSULT See dictation. Confirmation # [id number]. documented in this encounter ED Notes Essence Osuna RN - 10/09/2021 1:16 PM CDT Pt received one unit of RBC this morning, tolerated well, no transfusion reaction. Stepdaregina jin, aware of patient transfer to [facility]. Advanced to clear liquid diet, tolerating well. Pt will be NPO at midnight for EGD on 10/10. Kaylee Trejo RN - 10/08/2021 11:05 PM CDT [facility] ED Nurse Handoff Report Jonatan [...] X 1. Lift room needed:No. Bariatric: No Dairy Equipment Mechanic Needed: No Isolation: No. Infection: Not Applicable. [...] Brianna, , and informed her of admission [facility] boarding status. She will visit tomorrow [...] - 10/08/2021 6:30 PM CDT sent from [place] [facility]. Dialysis patient with hypotension today. Given 500ml and 1 unit PRBC at [place]. Florentino Ragsdale MD - 10/08/2021 6:23 PM [...] Pharmacy-Admission Medication History - Lisbeth Doddn Angie, [facility] - 10/08/2021 10:14 PM CDT Admission medication history interview status for this patient is complete. See [facility] admission navigator for allergy information, prior to admission medications and immunization status. Medication history interview done, indicate source(s): Patient Medication history resources (including written lists, pill bottles, clinic record): Evelin Camacho Pharmacy: [id number] - [place], [place] - [address] [phone] Changes made to DEPUTY PROGRAM MANAGER medication list: Added: ALL Actions taken by [...] Yes fluticasone (FLONASE) 50 MCG/ACT nasal spray [place] 1 spray in nostril daily 10/07/2021 at [...] Diagnosis HEMODIALYSIS SINGLE TREATMENT Routine 10/11/2021 SETUP ([facility]) 4:33 PM CDT HEMODIALYSIS DIALYZER ([facility]) Routine 10/11/2021 2:28 PM CDT IP [...] B surface antigen (10/11/2021 7:46 AM CDT) [facility] Method Time Signature Hepatitis B Nonreactive Nonreactive [...] e Number [facility]/PROT/ENDO [facility] [place] [address] Core/Prot/Endo [address] [facility] [address], Room 3-580 (ABNORMAL) CBC with platelets (10/11/2021 6:36 AM CDT) [facility] Method Time Signature WBC Count 7.1 4.0 [...] Address City/State/ZIP Code [place] [address] Care Lab [address] Lab (1st floor, no room number) (ABNORMAL) Basic metabolic panel (10/11/2021 6:36 AM CDT) [facility] Method Time [...] and gender (Brigette et al., NEJM, DOI: 10.1056/[id number]) Specimen Anatomical Collection Method / Collection Time Recei annie Time (Source) Location / Volume Laterality Blood STRUCTURE OF RIGHT Venipuncture / 10/11/2021 6:36 07/2 07/2021 6:42 HAND / Unknown Unknown AM CDT AM CDT Dallin Farah DO LAB - BLOOD ORDERABLES Performing Organization Address City/State/ZIP Code Ph[place] [phone] Care Lab [address] Lab (1st floor, no room number) [...] BEAKER POCT Performing Organization Address [facility]/ZIP Code Phon e Number [place] [address] Care Lab [address] Lab (1st floor, no room number) Surgical Pathology Exam (10/10/2021 8:58 AM CDT) Component Value Ref Test Analysis Performed Pathologis t Range Method Time At Signature Case Report Surgical Pathology Report ? Case: [id number] ? Authorizing Provider: ??Carb allo, Joce ? Collected: ? 10/10/2021 08:58 AM ? 2 8:22 AM NAHID DE LEON ? MD Edgard ? CDT Ordering Location: ? [facility] ?? Received: ?10/10/2021 09:42 AM ? [...] was 2 8:22 AM [facility] Case Images 2 [...] Address City/State/ZIP Code [place] [address] Care Lab [address] [facility] Lab (1st floor, no room number) UPPER GI ENDOSCOPY (10/10/2021 8:18 AM CDT) Component Value Ref Test Analysis Performed At [facility] Range Method Time Signature Upper GI [facility] RADIOLOGY Endoscopy RESULTS Patient Name: Jonatan Mejia ? Procedure Date: 09/18 8:18 AM ? Account Num flako: [id number] Date of : 1945 ?Admit Type: Inp [...] Model ?# [id number], Endora # 205, SN #[id number] was ?introduced through the mouth, and advanced [...] Note Initiated On: 10/10/2021 8:18 AM MRN: ?[id number] Procedure Date: ? 10/10/2021 8:18:14 AM Total [...] CBC with platelets (10/10/2021 7:22 AM CDT) [facility] Method Time Signature WBC Count 7.2 [...] City/State/ZIP Code Ph[place] [phone] Care Lab [address] Lab (1st floor, no room number) (ABNORMAL) Basic metabolic panel (10/10/2021 7:22 AM CDT) [facility] Method Time Signature Sodium 132 (L) [...] and gender (Brigette et al., NEJM, DOI: 10.1056/[id number]) Specimen Anatomical Collection Method / Collection Time Recei annie Time (Source) Location / Volume Laterality Blood STRUCTURE OF RIGHT Venipuncture / 10/10/2021 7:22 /06/2021 7:31 UPPER LIMB / Unknown AM CDT AM CDT Unknown Dallin Farah DO LAB - BLOOD ORDERABLES Performing Organization Address City/State/ZIP Code [place] [phone] Care Lab [address] Lab (1st floor, no room number) [...] [facility]/[place] [address] Care Lab [address] Lab (1st floor, no room number) [...] ORDERABLES Performing Organization Address [facility]/[place] [address] Care Lab [address] Lab (1st floor, no room number) [...] [facility]/[place] [address] Care Lab [address] Lab (1st floor, no room number) Transfuse red blood cells (unit) No special requirements (10/09/2021 11:51 AM CDT) Dallin Simons MD BLOOD TRANSFUSION ORDERABLES Transfuse red blood cells (unit), 1 Units No special requirements (10/09/2021 11:51 AM CDT) Dallin Simons MD BLOOD TRANSFUSION ORDERABLES (ABNORMAL) CBC with platelets (10/09/2021 9:12 AM CDT) [facility] gist Method Time Signature WBC Count [...] City/State/ZIP Code [place] [phone] Care Lab [address] Lab (1st floor, no room number) (ABNORMAL) Basic metabolic panel (10/09/2021 9:12 AM CDT) [facility] Method Time [...] and gender (Brigette et al., NEJ, DOI: 10.1056/[id number]) Specimen Anatomical Collection Method / Collection Time Recei annie Time (Source) Location / Volume Laterality Blood STRUCTURE OF RIGHT Venipuncture / 10/09/2021 9:12 /05/2021 9:34 HAND / Unknown Unknown AM CDT AM CDT Layne Rossi PA-C LAB - BLOOD ORDERABLES Performing Organization Address City/State/ZIP Code [place] [address] Care Lab [address] Lab (1st floor, no room number) Prepare red blood cells (unit) (10/09/2021 6:52 AM CDT) [facility] Method Time Signature CROSSMATCH Compatible RH BLOOD BANK UNIT ABO/RH O Neg RH BLOOD BANK Unit Number [id number] RH BLOOD BANK Unit Status Transfused RH BLOOD BANK Blood Red Blood Cells RH BLOOD Component Type BANK Product Code [id number] RH BLOOD BANK CODING SYSTEM [id number] RH BLOOD BANK UNIT TYPE ISBT 9500 RH BLOOD BANK ISSUE DATE AND [id number] RH BLOOD TIME BANK Specimen (Source) Anatomical Collection Method Collection Time Re ceived Time Location / / Volume Laterality 10/09/2021 6:52 AM CDT Dallin Simons MD BLOOD BANK PRODUCT ORDERABLE S Performing Organization Address City/State/ZIP Code Phon e Number RH BLOOD BANK [address] [place] [address] Transfuse red blood cells (unit) No special [...] RESULTS Atrial Rate 39 BPM RADIOLOGY RESULTS MS Interval ms RADIOLOGY RESULTS QRS Duration 126 ms RADIOLOGY RESULTS QT 442 ms RADIOLOGY RESULTS QTc 477 ms RADIOLOGY RESULTS P [place] degrees RADIOLOGY RESULTS R AXIS 107 degrees RADIOLOGY RESULTS T [place] 33 degrees RADIOLOGY RESULTS Interpretation Atrial fibrillation RADIO LOGY ECG Right bundle branch block RESU LTS Abnormal ECG No previous ECGs available Confirmed by - [facility] [place] Aravind PHYSICIAN ([id number]), news videotape editor ANDRÉS HATCH ([id number]) on 10/11/2021 6:42:29 AM Specimen Anatomical Collection Method Collection Time Receive d Time (Source) Location / / Volume Laterality 10/09/2021 12:52 10/11/2021 6:42 AM CDT AM CDT Layne Ray Rossi PA-C ECG ORDERABLES Performing Organization Address City/[facility]/ZIP Code Phon e Number RADIOLOGY RESULTS Prepare red blood cells (unit) (10/08/2021 11:46 PM CDT) Patholo gist Method Time Signature CROSSMATCH Compatible RH BLOOD BANK UNIT ABO/RH O Neg RH BLOOD BANK Unit Number [id number] RH BLOOD BANK Unit Status Transfused RH BLOOD BANK Blood Red Blood Cells RH BLOOD Component Type BANK Product Code [id number] RH BLOOD BANK CODING SYSTEM [id number] RH BLOOD BANK UNIT TYPE ISBT 9500 RH BLOOD BANK ISSUE DATE AND RH BLOOD TIME BANK Specimen (Source) Anatomical Collection Method Collection Time Re ceived Time Location / / Volume Laterality 10/08/2021 11:46 PM CDT Layne Rossi PA-C BLOOD BANK PRODUCT ORDERABLE S Performing Organization Address City/[facility]/ZIP Code Phon e Number RH BLOOD BANK [address] [place] [address] (ABNORMAL) Hemoglobin (10/08/2021 10:47 PM CDT) athologist [...] Medical Center/ZIP Code [place] [address] Care Lab [address] [facility] Lab (1st floor, no room number) (ABNORMAL) [...] LAB - BEAKER POCT Performing Organization Address City/[facility]/ZIP Code Phon e Number RH LABORATORY [facility] [place] [address] Care Lab [address] Lab (1st floor, no room number) [...] the Xpert Xpress SARS-CoV-2 Assay on the [employer]. A dditional information about this [...] COVID-19. This test was validated by the [facility]. This laboratory is certified under the Clinical Laboratory Improvement Amendments of 1988 (CLIA-88) as qualified to perform high complexity laboratory testing. Florentino Ragsdale MD LAB - MICRO GENERAL ORDERABL ES Performing Organization Address City/State/ZIP Code [place] [address] Care Lab [address] Lab (1st floor, no room number) [...] Address City/State/ZIP Code [place] [phone] Care Lab [address] Lab (1st floor, no room number) [...] Medical Center/ZIP Code [place] [phone] Care Lab [address] Lab (1st floor, no room number) [...] Center/ZIP Code [place] [address] Care Lab [address] Lab (1st floor, no room number) Adult Type and Screen (10/08/2021 7:02 PM CDT) [facility] Signature ABO/RH(D) O NEG 10/08/2021 RH BLOOD 6:39 PM CDT BANK Antibody Negative Negative 10/08/2021 RH BLOOD Screen 6:39 PM CDT BANK SPECIMEN [id number] 10/08/2021 RH BLOOD EXPIRATION 6:39 PM CDT BANK DATE Specimen Anatomical Collection Method / Collection Time Recei annie Time (Source) Location / Volume Laterality Blood STRUCTURE OF RIGHT Venipuncture / 10/08/2021 7:02 09/18 7:10 UPPER LIMB / Unknown PM CDT PM CDT Unknown Florentino Ragsdale MD LAB - BLOOD BANK TEST ORDER Performing Organization Address [facility]/ZIP Code Phon e Number RH BLOOD BANK [email or web address] [address] (ABNORMAL) Comprehensive metabolic panel (10/08/2021 7:02 PM CDT) [facility] Method Time Signature Sodium 136 133 - [...] and gender (Brigette et al., NEJ, DOI: 10.1056/[id number]) Specimen Anatomical Collection Method / Collection Time Recei annie Time (Source) Location / Volume Laterality Blood STRUCTURE OF RIGHT Venipuncture / 10/08/2021 7:02 09/18 7:10 UPPER LIMB / Unknown PM CDT PM CDT Unknown Florentino Ragsdale MD LAB - BLOOD ORDERABLES Performing Organization Address City/State/ZIP Code [place] [address] Care Lab [address] Lab (1st floor, no room number) [...] than 92% and or/end-tidal CO2 is greater atsh n 50. ~ the patient is receiving [...] 0143 documented in this encounter Care Teams Bicycle Subassembler Relationship Specialty Start Date End Date Liban Leos PCP - General Family Medicine 10/08/21 [address] [place] [address] Ernie Pompa MD MD Nephrology 10/08/21 [address] [place] [address] documented as of this encounter
--- OUTSIDE RECORDS SUMMARY | 2021-11-18 12:34 | XMS_ITS | Encounter Summary ---
:1945 Author Organization [place] Address [address] [place] [address] Care Team Providers Name Role Phone Unavailable Primary Care Provider Unavailable Encounter Details Date Type Department Care Team Description 04/03/2019 Records - [facility] GERIATRIC SERVICES [facility] [address] [place] [address] [place] [phone] Social History Tobacco Use Types Packs/Day Years Used Date Never Assessed Sex Assigned at Date Recorded Not on file documented as of this encounter Plan of Treatment Not on filedocumented as of this encounter Procedures Procedure Name Priority Date/Time Associated Diagnosis Comme nts BASIC METABOLIC Routine 04/04/2019 6:30 AM Result s for this PANEL FIXED WING AIRCRAFT CREW CHIEF procedure are i n the results section. CBC WITH PLATELETS Routine 04/04/2019 6:30 AM Res ults for this FIXED WING AIRCRAFT CREW CHIEF procedure are i n the results section. documented in this encounter Results (ABNORMAL) CBC with platelets (04/04/2019 6:30 AM FIXED WING AIRCRAFT CREW CHIEF) [facility] Method Time Signature WBC 7.7 4.0 - 11.0 04/04/2019 HEALTH thou/uL 9:51 AM [facility] RBC Count 2.58 (L) 4.40 - 04/04/2019 HEALTH 6.20 9:51 AM [facility] LABORATORY Hemoglobin 8.0 (L) 14.0 - 04/04/2019 HEALTH 18.0 g/dL 9:51 AM [facility] Hematocrit 26.3 (L) 40.0 - 04/04/2019 HEALTH 54.0 % 9:51 AM [facility] MCV 102 (H) 80 - 100 04/04/2019 HEALTH fL 9:51 AM [facility] MCH 31.0 27.0 - 04/04/2019 HEALTH 34.0 pg 9:51 AM [facility] MCHC 30.4 (L) 32.0 - 04/04/2019 HEALTH 36.0 g/dL 9:51 AM [facility] RDW 20.2 (H) 11.0 - 04/04/2019 HEALTH 14.5 % 9:51 AM [facility] Platelet Count 142 140 - 440 04/04/2019 HEALTH thou/uL 9:51 AM [facility] Mean Platelet 11.0 8.5 - 12.5 04/04/2019 HEALTH Volume fL 9:51 AM [facility] Specimen Anatomical Collection Method / Collection Time Recei annie Time (Source) Location / Volume Laterality Blood specimen STRUCTURE OF RIGHT Venipuncture / 04/04/2019 6:30 9:35 (specimen) UPPER LIMB / Unknown AM FIXED WING AIRCRAFT CREW CHIEF AM FIXED WING AIRCRAFT CREW CHIEF Unknown Alison Hollins LAB - BLOOD ORDERABLES Performing Organization Address City/State/ZIP Code Phon e [place] [address] [address] [facility] (ABNORMAL) Basic metabolic panel (04/04/2019 6:30 AM FIXED WING AIRCRAFT CREW CHIEF) [facility] gist Method Time Signature Sodium 140 136 - 145 04/04/2019 HEALTH mmol/L 11:11 AM [facility] Potassium 4.8 3.5 - 5.0 04/04/2019 HEALTH mmol/L 11:11 AM [facility] Chloride 104 98 - 107 04/04/2019 HEALTH mmol/L 11:11 AM [facility] Carbon Dioxide 23 22 - 31 04/04/2019 HEALTH (CO2) mmol/L 11:11 AM [facility] Anion Gap 13 5 - 18 04/04/2019 HEALTH mmol/L 11:11 AM [facility] Glucose 84 70 - 125 04/04/2019 HEALTH mg/dL 11:11 AM [facility] Calcium 10.2 8.5 - 10.5 04/04/2019 HEALTH mg/dL 11:11 AM [facility] Urea Nitrogen 92 (H) 8 - 28 04/04/2019 HEALTH mg/dL 11:11 AM [facility] Creatinine 3.32 (H) 0.70 - 04/04/2019 HEALTH 1.30 mg/dL 11:11 AM [facility] GFR Estimate If 22 (L) >60 04/04/2019 HEALTH Black mL/min/1.7 11:[address] LABORATORY GFR Estimate 18 (L) >60 04/04/2019 HEALTH mL/min/1.7 11:11 AM [address] LABORATORY Specimen Anatomical Collection Method / Collection Time Recei annie Time (Source) Location / Volume Laterality Blood specimen STRUCTURE OF RIGHT Venipuncture / 04/04/2019 6:30 9:35 (specimen) UPPER LIMB / Unknown AM FIXED WING AIRCRAFT CREW CHIEF AM FIXED WING AIRCRAFT CREW CHIEF Unknown Narrative O LABORATORY - 04/04/2019 11:11 AM FIXED WING AIRCRA[employer] CREW CHIEF Fasting Glucose reference range is 70-99 mg/dL per [place] [employer] (ADA) maryan soriano Alison Hollins LAB - BLOOD ORDERABLES Performing Organization Address City/State/ZIP Code [place] [id number] [place] [address] LABORATORY [facility] [address] [place] [address], [facility] documented in this encounter Visit Diagnoses Not on filedocumented in this encounter
--- OUTSIDE RECORDS SUMMARY | 2021-11-18 12:34 | XMS_ITS | Encounter Summary ---
:1945 Author Organization [facility] Address [address] [place] [address] Care Team Providers Name Role Phone Unavailable Primary Care Provider Unavailable Encounter Details Date Type Department Care Team Description 11/17/2021 Orders Only [facility] f Ernie Guzmán MD [phone] [place] [address] [place], [place] [phone] (Wo rk) Social History Tobacco Use Types Packs/Day Years Used Date Smoking Tobacco: Unknown Comments: Smoking History Info:Patient n ot screened Sex Assigned at Date Recorded Not on file documented as of this encounter Plan of Treatment Not on filedocumented as of this encounter Procedures Procedure Name Priority Date/Time Associated Diagnosis Comme nts HEMATOLOGY Routine 11/17/2021 Results for thi s procedure are in the resu lts section. documented in this encounter Results (ABNORMAL) HEMATOLOGY (11/17/2021) Analysis Performed At Patho logist Time Signature Hemoglobin 10.2 (L) 14.0 - [facility] 18.0 g/dL [facility] Hemoglobin x 3 30.6 (L) 42.0 - [facility] 54.0 % [facility] Specimen (Source) Anatomical Collection Method Collection Time Re ceived Time Location / / Volume Laterality 11/17/2021 11/18/2021 3:51 AM CDT Narrative [facility] - 11/18/2021 Unless otherwise specified, test(s) performed at: [facility], [address] [place] [address], [place] [address] TECHNICAL SALES SUPPORT MANAGER: Alhaji Noguera M.D., Ph.D For any questions, please call customer service at FREQUENCY:OTHER Resulting Agency Comment Specimen source: Blood Ernie Pompa MD LAB BLOOD ORDERABLES Performing Organization Address City/State/ZIP Code Phon e Number [facility] documented in this encounter Visit Diagnoses Not on filedocumented in this encounter
--- OUTSIDE RECORDS SUMMARY | 2021-11-18 12:34 | XMS_ITS | Encounter Summary ---
:1945 Author Organization [place] Address [address] [place] [address] Care Team Providers Name Role Phone Unavailable Primary Care Provider Unavailable Encounter Details Date Type Department Care Team Description 03/31/2019 Records - [facility] GERIATRIC SERVICES [facility] [address] [place] [address] [place], [place] [phone] Social History Tobacco Use Types Packs/Day Years Used Date Never Assessed Sex Assigned at Date Recorded Not on file documented as of this encounter Plan of Treatment Not on filedocumented as of this encounter Procedures Procedure Name Priority Date/Time Associated Diagnosis Comme nts BASIC METABOLIC Routine 04/01/2019 7:55 AM Result s for this PANEL CASE FILLER procedure are i n the results section. CBC WITH PLATELETS Routine 04/01/2019 7:55 AM Res ults for this CASE FILLER procedure are i n the results section. documented in this encounter Results (ABNORMAL) CBC with platelets (04/01/2019 7:55 AM CASE FILLER) [facility] Method Time Signature WBC 7.6 4.0 - 11.0 04/01/2019 HEALTH thou/uL 12:59 PM [facility] RBC Count 2.48 (L) 4.40 - 04/01/2019 HEALTH 6.20 12:59 PM [facility] LABORATORY Hemoglobin 7.7 (L) 14.0 - 04/01/2019 HEALTH 18.0 g/dL 12:59 PM [facility] Hematocrit 25.1 (L) 40.0 - 04/01/2019 HEALTH 54.0 % 12:59 PM [facility] MCV 101 (H) 80 - 100 04/01/2019 HEALTH fL 12:59 PM [facility] MCH 31.0 27.0 - 04/01/2019 HEALTH 34.0 pg 12:59 PM [facility] MCHC 30.7 (L) 32.0 - 04/01/2019 HEALTH 36.0 g/dL 12:59 PM [facility] RDW 19.7 (H) 11.0 - 04/01/2019 HEALTH 14.5 % 12:59 PM [facility] Platelet Count 137 (L) 140 - 440 04/01/2019 HEALTH thou/uL 12:59 PM [facility] Mean Platelet 10.7 8.5 - 12.5 04/01/2019 HEALTH Volume fL 12:59 PM [facility] Specimen Anatomical Collection Method / Collection Time Recei annie Time (Source) Location / Volume Laterality Blood specimen STRUCTURE OF RIGHT Venipuncture / 04/01/2019 7:55 (specimen) UPPER LIMB / Unknown AM CASE FILLER 12:23 PM CASE FILLER Unknown Alison Hollins LAB - BLOOD ORDERABLES Performing Organization Address City/State/ZIP Code Phon e [place] [address] [address] [facility]ORY (ABNORMAL) Basic metabolic panel (04/01/2019 7:55 AM CASE FILLER) [facility] Method Time Signature Sodium 137 136 - 145 04/01/2019 HEALTH mmol/L 1:17 PM [facility] Potassium 4.7 3.5 - 5.0 04/01/2019 HEALTH mmol/L 1:17 PM [facility] Chloride 105 98 - 107 04/01/2019 HEALTH mmol/L 1:17 PM [facility] Carbon Dioxide 22 22 - 31 04/01/2019 HEALTH (CO2) mmol/L 1:17 PM [facility] Anion Gap 10 5 - 18 04/01/2019 HEALTH mmol/L 1:17 PM [facility] Glucose 83 70 - 125 04/01/2019 HEALTH mg/dL 1:17 PM [facility] Calcium 10.1 8.5 - 10.5 04/01/2019 HEALTH mg/dL 1:17 PM [facility] Urea Nitrogen 93 (H) 8 - 28 04/01/2019 HEALTH mg/dL 1:17 PM [facility] Creatinine 3.02 (H) 0.70 - 04/01/2019 HEALTH 1.30 mg/dL 1:17 PM [facility] GFR Estimate If 25 (L) >60 04/01/2019 HEALTH Black mL/min/1.7 1:[address] LAB[address] GFR Estimate 21 (L) >60 04/01/2019 HEALTH mL/min/1.7 1:17 [address] LAB[facility] Specimen Anatomical Collection Method / Collection Time Recei annie Time (Source) Location / Volume Laterality Blood specimen STRUCTURE OF RIGHT Venipuncture / 04/01/2019 7:55 (specimen) UPPER LIMB / Unknown AM CASE FILLER 12:23 PM CASE FILLER Unknown Narrative [facility] - 04/01/2019 1:17 PM CASE FILLER Fasting Glucose reference range is 70-99 mg/dL per [place] [employer] (ADA) maryan marrero. Alison Hollins LAB - BLOOD ORDERABLES Performing Organization Address City/State/ZIP Code [place] [id number] [place] [address] LABORATORY [facility] [address] [place] [address], [facility] documented in this encounter Visit Diagnoses Not on filedocumented in this encounter
--- OUTSIDE RECORDS SUMMARY | 2021-11-18 12:35 | XMS_ITS | Encounter Summary ---
:1945 Author Organization [facility] Address [address] [place] [address] Care Team Providers Name Role Phone Unavailable Primary Care Provider Unavailable Encounter Details Date Type Department Care Team Description 07/21/2021 Treatment [facility] f Ernie Guzmán MD [address] [place] [address] [place], [place] [phone] [phone] (Wo rk) Social History Tobacco Use Types Packs/Day Years Used Date Smoking Tobacco: Unknown Comments: Smoking History Info:Patient n ot screened Sex Assigned at Date Recorded Not on file documented as of this encounter Miscellaneous Notes Dialysis Note - Ernie Pompa MD - 07/21/2021 9:02 AM CDT Date: July 21, 2021 Patient Name: Shaun Ocampo : 1945 Chart #: [id number] Sex: M This patient was personally seen [...] AM ) BP (sit): 112/56 AP(-) / STORAGE BATTERY INSPECTOR AND TESTER: 158/144 Pulse: 77 Chairside data as of [...] mcg IVP Every 2 weeks 07/21/2021 07/20/2022 APPEALS REFEREE: Ernie Pompa MD LOCATION: [place] [phone] SCHEDULE: -W- 2nd Shift EDW: kg. DIALYZER: HD DURATION: NEEDLE SIZE: ANTICOAG: BATH: QB: ml/min QD: ml/min Subjective Tolerating dialysis well. 07/21/21: Continues to struggle with fluid gains, extra UF run scheduled tomorrow at [facility]. He does feel more SOB when fluid overloaded. No new symptoms otherwise, he is enjoying the nicer weather which allows him to do more activity and not sit at home and drink fluids which he thinks will help with IDWG's. 07/14/21: Continues to have high gains, unfortunately [facility] without staff to open tomorrow for extra [...] improving. Fluid gains continue to be high, [facility] not open on this week, says he will do his best withlimiting salt/fluid. HE does feel SOB with exertion with extra fluid on, no orthopnea. 05/26/21: Has SOB when >5 Kg over dry weight, extra run last week at [facility] helped. Trying his best with fluid restriction. [...] extra run and we discussed going to [facility] tomorrow for UF only run and he [...] again today, may need extra run at [facility] if can't get down over next week. 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 06/10: Doing well overall, no new complaints, [...] Went to Urgent care -> ER in [place] yesterday,CT with R hydro but no [...] He had infiltration last week, dialyzed at [facility] on Sat and went well, access [...] prescription. Vascular Access Assessment Type of access: [id number] Surgeon - Lary GARDNER Access working well [...] at goal. Intact PTH is above goal. Blanching Machine Operator will adjust binders and vitamin [...] euvolemia, extra UF run planned 07/22/21 at [facility] Transplant Status: Patient is not a candidate. Weight, co-morbidities, age Resuscitation Status Stable dialysis, no changes to prescription Extra UF run tomorrow at [facility] Continue work on lower IDWG's Monthly labs being drawn today Ernie Pompa MD [ Signed And locked electronically On 07/21/2021 at 09:05:19 AM ] Transcribed: Ernie Pompa ( 07/21/2021 ) documented in this encounter Plan of Treatment Not on filedocumented as of this encounter Visit Diagnoses Not on filedocumented in this encounter
--- OUTSIDE RECORDS SUMMARY | 2021-11-18 12:35 | XMS_ITS | Encounter Summary ---
:1945 Author Organization [facility] Address [address] [place] [address] Care Team Providers Name Role Phone Unavailable Primary Care Provider Unavailable Encounter Details Date Type Department Care Team Description 07/07/2021 Orders Only [facility] O f Ernie Guzmán MD [address] [place] [address] [place], [place] [phone] (Wo rk) Social History Tobacco Use [...] 07/10/2021 Unless otherwise specified, test(s) performed at: [facility], [address] [place] [address] CERAMIC DESIGN ENGINEER: Alec Payan M.D. For any questions, [...] 07/10/2021 Unless otherwise specified, test(s) performed at: [facility], [address] [place], [place] [id number] CERAMIC DESIGN ENGINEER: Alec Payan M.D. For any questions, please call customer service at FREQUENCY:OTHER Resulting Agency Comment Specimen source: Plasma Ernie Pompa MD LAB BLOOD ORDERABLES Performing Organization Address [facility] Phon e Number [facility] [...] 07/10/2021 Unless otherwise specified, test(s) performed at: [facility], [address] [place] [address] CERAMIC DESIGN ENGINEER: Alec Payan M.D. For any questions, please call customer service at FREQUENCY:OTHER Resulting Agency Comment Specimen source: Blood Ernie Pompa MD LAB BLOOD ORDERABLES Performing Organization Address City/[facility]/ZIP [facility] Phon e Number [facility] documented in this encounter Visit Diagnoses Not on filedocumented in this encounter
--- OUTSIDE RECORDS SUMMARY | 2021-11-18 12:35 | XMS_ITS | Encounter Summary ---
:1945 Author Organization [facility] Address [address] [place] [address] Care Team Providers Name Role Phone Unavailable Primary Care Provider Unavailable Encounter Details Date Type Department Care Team Description 09/29/2021 Orders Only [facility] O f Ernie Guzmán MD [address] [place] [address] [place], [place] [phone] (Wo rk) Social History Tobacco Use [...] 09/30/2021 Unless otherwise specified, test(s) performed at: [facility], [address] [place] [address], [place] [address] DAIRY HELPER: Alhaji Noguera M.D., Ph.D For any questions, [...] 09/30/2021 Unless otherwise specified, test(s) performed at: [facility], [address] [place], [place] [address]fr[facility] [place] [address] DAIRY HELPER: Alhaji Noguera M.D., Ph.D For any questions, please call customer service at FREQUENCY:OTHER Resulting Agency Comment Specimen source: Blood Ernie Pompa MD LAB BLOOD ORDERABLES Performing Organization Address City/[facility] Code Phon e Number [facility] documented in this encounter Visit Diagnoses Not on filedocumented in this encounter
--- OUTSIDE RECORDS SUMMARY | 2021-11-18 12:35 | XMS_ITS | Encounter Summary ---
:1945 Author Organization [facility] Address [address] [place] [address] Care Team Providers Name Role Phone Unavailable Primary Care Provider Unavailable Encounter Details Date Type Department Care Team Description 07/14/2021 Treatment [facility] O f Ernie Guzmán MD [address] [place] [address] [place], [place] [phone] [phone] (Wo rk) Social History Tobacco Use Types Packs/Day Years Used Date Smoking Tobacco: Unknown Comments: Smoking History Info:Patient n ot screened Sex Assigned at Date Recorded Not on file documented as of this encounter Miscellaneous Notes Dialysis Note - Ernie Pompa MD - 07/14/2021 9:22 AM CDT Date: Jul 14, 2021 Patient Name: Shaun Ocampo : 1945 Chart #: [id number] Sex: M This patient was personally seen [...] AM ) BP (sit): 99/43 AP(-) / CIRCULAR SAW EDGE FUSER: 152/133 Pulse: 67 Chairside data as of [...] mcg IVP Every 4 weeks 06/23/2021 06/22/2022 DATA CONVERSION ANALYST: Ernie Pompa MD LOCATION: [place] [phone] SCHEDULE: -- 2nd Shift ACCESS: EDW: kg. DIALYZER: HD DURATION: NEEDLE SIZE: ANTICOAG: BATH: QB: ml/min QD: ml/min Subjective Tolerating dialysis well. 07/14/21: Continues to have high gains, unfortunately [facility] without staff to open tomorrow for extra [...] had steroid injections in knees yesterday at [facility]. To do PT as well. He pulled muscle in his lower arm on L side last week getting into car, hurt a lot but is improving. Fluid gains continue to be high, [facility] not open on this week, says he will do his best withlimiting salt/fluid. HE does feel SOB with exertion with extra fluid on, no orthopnea. 05/26/21: Has SOB when >5 Kg over dry weight, extra run last week at [facility] helped. Trying his best with fluid restriction. [...] extra run and we discussed going to [facility] tomorrow for UF only run and he [...] again today, may need extra run at [facility] if can't get down over next week. 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 06/10: Doing well overall, no new complaints, [...] Went to Urgent care -> [place] in [place] yesterday,CT with R hydro but no obstructive [...] (05/26/21) Vascular Access Assessment: Type of access: [id number] Surgeon - Lary GARDNER Access working well [...] to go further to get this as [facility] not open but he doesn't feel he can drive that far Ernie Pompa MD [ Signed And locked electronically On 07/14/2021 at 09:24:45 AM ] Transcribed: Ernie Pompa ( 07/14/2021 ) documented in this encounter Plan of Treatment Not on filedocumented as of this encounter Visit Diagnoses Not on filedocumented in this encounter
--- OUTSIDE RECORDS SUMMARY | 2021-11-18 12:35 | XMS_ITS | Encounter Summary ---
:1945 Author Organization [facility] Address [address] [place] [address] Care Team Providers Name Role Phone Unavailable Primary Care Provider Unavailable Encounter Details Date Type Department Care Team Description 06/16/2021 Orders Only [facility] O f Ernie Guzmán MD [address] [place] [address] [place], [place] [phone] (Wo rk) Social History Tobacco Use [...] 06/17/2021 Unless otherwise specified, test(s) performed at: [facility], [address] [place] [address] BANDER AND CELLOPHANER HELPER MACHINE: Alec Payan M.D. For any questions, please call customer service at FREQUENCY:OTHER Resulting Agency Comment Specimen source: Blood Ernie Pompa MD LAB BLOOD ORDERABLES Performing Organization Address City/State/ZIP Code Phon e Number [facility] documented in this encounter Visit Diagnoses Not on filedocumented in this encounter
--- OUTSIDE RECORDS SUMMARY | 2021-11-18 12:35 | XMS_ITS | Encounter Summary ---
:1945 Author Organization [facility] Address [address] [place] [address] Care Team Providers Name Role Phone Unavailable Primary Care Provider Unavailable Encounter Details Date Type Department Care Team Description 08/25/2021 Treatment [facility] f Ernie Guzmán MD [address] [place] [address] [place], [place] [address] [phone] (Wo rk) Social History Tobacco Use Types Packs/Day Years Used Date Smoking Tobacco: Unknown Comments: Smoking History Info:Patient n ot screened Sex Assigned at Date Recorded Not on file documented as of this encounter Miscellaneous Notes Dialysis Note - Ernie Pompa MD - 08/25/2021 10:16 AM CDT Date: Aug 25, 2021 Patient Name: Shaun Ocampo : 1945 Chart #: [id number] Sex: M This patient was personally seen [...] AM ) BP (sit): 118/41 AP(-) / POST HOLE DIGGING MACHINE OPERATOR: 171/153 Pulse: 69 Chairside data as of [...] mcg IVP Every 2 weeks 08/25/2021 08/24/2022 RECONCILIATION MACHINE OPERATOR: Ernie Pompa MD LOCATION: [phone] SCHEDULE: -- 2nd Shift EDW: kg. DIALYZER: [...] and do periodic extra UF treatments at [place] rather than risk more hypotension post-tx with use of midodrine and additional UF during treatments. He has fistulagram last week, went well and access working well since. 08/11: Continues to have problems with fluid gains. we have spent considerable time discussing this, he is trying to work on this but can't seem to avoid large gains. Will go to [place] for UF tomorrow, needs extra treatments every 2 weeks it looks like to maintain EDW. He does get SOB when >5K over dry weight in particular. 07/21/21: Continues to struggle with fluid gains, extra UF run scheduled tomorrow at [place]. He does feel more SOB when fluid overloaded. No new symptoms otherwise, he is enjoying the nicer weather which allows him to do more activity and not sit at home and drink fluids which he thinks will help with IDWG's. 07/14/21: Continues to have high gains, unfortunately [place] without staff to open tomorrow for extra [...] had steroid injections in knees yesterday at [facility]. To do PT as well. He pulled muscle in his lower arm on L side last week getting into car, hurt a lot but is improving. Fluid gains continue to be high, [place] not open on this week, says he will do his best withlimiting salt/fluid. HE does feel SOB with exertion with extra fluid on, no orthopnea. 05/26/21: Has SOB when >5 Kg over dry weight, extra run last week at [place] helped. Trying his best with fluid restriction. [...] extra run and we discussed going to [place] tomorrow for UF only run and he [...] again today, may need extra run at [place] if can't get down over next week. 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 06/10: Doing well overall, no new complaints, [...] Went to Urgent care -> ER in [place] yesterday,CT with R hydro but no obstructive [...] prescription. Vascular Access Assessment Type of access: [id number]/2019 Surgeon - Lary GARDNER 08/2021: fistulagram at [...] at goal. Intact PTH is above goal. Power Crane Operator will adjust binders and vitamin D [...] maintain euvolemia, extra UF run planned at [place] when they areopen either tomorrow or next week on Transplant Status: Patient is not a candidate. Weight, co-morbidities, age Resuscitation Status Stable dialysis, no changes to prescription Extra UF run at [place] Continue work on lower IDWG's Titrate Vit [...]
--- OUTSIDE RECORDS SUMMARY | 2021-11-18 12:35 | XMS_ITS | Encounter Summary ---
:1945 Author Organization [facility] Address [address] [place] [address] Care Team Providers Name Role Phone Unavailable Primary Care Provider Unavailable Encounter Details Date Type Department Care Team Description 06/30/2021 Treatment [facility] f Ernie Guzmán MD [address] [place] [address] [place], [place] [phone] (Wo rk) Social History Tobacco Use Types Packs/Day Years Used Date Smoking Tobacco: Unknown Comments: Smoking History Info:Patient n ot screened Sex Assigned at Date Recorded Not on file documented as of this encounter Miscellaneous Notes Dialysis Note - Ernie Pompa MD - 06/30/2021 11:03 AM CDT Date: Jun 30, 2021 Patient Name: Shaun Ocampo : 1945 Chart #: [id number] Sex: M This patient was personally seen [...] AM ) BP (sit): 100/42 AP(-) / CLINICAL LAW PROFESSOR: 167/131 Pulse: 78 Chairside data as of [...] 05/28/2021 04/23/2021 04/02/2021 Access Flow [id number] Treatment Medication Orders Medication Sig Start Date [...] mcg IVP Every 4 weeks 06/23/2021 06/22/2022 COMMERCIAL LENDER: Ernie Pompa MD LOCATION: [phone] SCHEDULE: -- 2nd Shift EDW: kg. DIALYZER: [...] had steroid injections in knees yesterday at [facility]. To do PT as well. He pulled muscle in his lower arm on L side last week getting into car, hurt a lot but is improving. Fluid gains continue to be high, [place] not open on this week, says he will do his best withlimiting salt/fluid. HE does feel SOB with exertion with extra fluid on, no orthopnea. 05/26/21: Has SOB when >5 Kg over dry weight, extra run last week at [place] helped. Trying his best with fluid restriction. [...] run and we discussed going to [place] tomorrow for UF only run and he [...] today, may need extra run at [place] if can't get down over next week. 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 06/10: Doing well overall, no new complaints, [...] Went to Urgent care -> ER in [place] yesterday,CT with R hydro but no obstructive [...] prescription. Vascular Access Assessment Type of access: [id number]/2019 Surgeon Annita KUMARW Access working well Anemia [...] at goal. Intact PTH is above goal. Aids Counselor will adjust binders and vitamin D per [...] to prescription Extra UF run tomorrow at [place] Continue work on lower IDWG's Ernie Pompa MD [ Signed And locked electronically On 06/30/2021 at 11:05:31 AM ] Transcribed: Ernie Pompa ( 06/30/2021 ) documented in this encounter Plan of Treatment Not on filedocumented as of this encounter Visit Diagnoses Not on filedocumented in this encounter
--- OUTSIDE RECORDS SUMMARY | 2021-11-18 12:35 | XMS_ITS | Encounter Summary ---
:1945 Author Organization [facility] Address [address] [place] [address] Care Team Providers Name Role Phone Unavailable Primary Care Provider Unavailable Encounter Details Date Type Department Care Team Description 09/15/2021 Treatment [facility] f Ernie Guzmán MD [address] [place] [address] [place], [place] [phone] (Wo rk) Social History Tobacco Use Types Packs/Day Years Used Date Smoking Tobacco: Unknown Comments: Smoking History Info:Patient n ot screened Sex Assigned at Date Recorded Not on file documented as of this encounter Miscellaneous Notes Dialysis Note - Ernie Pompa MD - 09/15/2021 10:30 AM CDT Date: Sep 15, 2021 Patient Name: Shaun Ocampo : 1945 Chart #: [id number] Sex: M This patient was personally seen [...] AM ) BP (sit): 107/33 AP(-) / WAGON WINDER: n/a Pulse: 65 Chairside data as of [...] mcg IVP Every 2 weeks 09/15/2021 09/14/2022 SURVEY METHODOLOGIST: Ernie Pompa MD LOCATION: [phone] SCHEDULE: -- 2nd Shift ACCESS: EDW: kg. [...] and do periodic extra UF treatments at [place] rather than risk more hypotension post-tx with use of midodrine and additional UF during treatments. He has fistulagram last week, went well and access working well since. 08/11: Continues to have problems with fluid gains. we have spent considerable time discussing this, he is trying to work on this but can't seem to avoid large gains. Will go to [place] for UF tomorrow, needs extra treatments every 2 weeks it looks like to maintain EDW. He does get SOB when >5K over dry weight in particular. 07/21/21: Continues to struggle with fluid gains, extra UF run scheduled tomorrow at [place]. He does feel more SOB when fluid overloaded. No new symptoms otherwise, he is enjoying the nicer weather which allows him to do more activity and not sit at home and drink fluids which he thinks will help with IDWG's. 07/14/21: Continues to have high gains, unfortunately [place] without staff to open tomorrow for extra [...] improving. Fluid gains continue to be high, [place] not open on this week, says he will do his best withlimiting salt/fluid. HE does feel SOB with exertion with extra fluid on, no orthopnea. 05/26/21: Has SOB when >5 Kg over dry weight, extra run last week at [place] helped. Trying his best with fluid restriction. [...] extra run and we discussed going to [place] tomorrow for UF only run and he [...] again today, may need extra run at [place] if can't get down over next week. 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 06/10: Doing well overall, no new complaints, [...] Went to Urgent care -> ER in [place] yesterday,CT with R hydro but no obstructive [...] (08/18/21) Vascular Access Assessment: Type of access: [id number]/2019 Surgeon - Lary GARDNER 08/2021: [place] [facility] [place] completed Impression and Plan Stable dialysis overall, no changes to prescription made Continue to work on fluid gains, likely will need extra UF run every couple of weeks at [place] I asked him to schedule follow-up with [...]
--- OUTSIDE RECORDS SUMMARY | 2021-11-18 12:35 | XMS_ITS | Encounter Summary ---
:1945 Author Organization [facility] Address [address] [place] [address] Care Team Providers Name Role Phone Unavailable Primary Care Provider Unavailable Encounter Details Date Type Department Care Team Description 08/25/2021 Orders Only [facility] f Ernie Guzmán MD [address] [place] [address] [place], [place] [phone] (Wo rk) Social History Tobacco Use [...] 08/27/2021 Unless otherwise specified, test(s) performed at: [facility], [address] [place] [address] LOADER TECHNICIAN: Alec Payan M.D. For any questions, please call customer service at FREQUENCY:OTHER Resulting Agency Comment Specimen source: Blood Ernie oPmpa MD LAB BLOOD ORDERABLES Performing Organization Address City/State/ZIP Code Phon e Number APS SPECTRA [facility] documented in this encounter Visit Diagnoses Not on filedocumented in this encounter
--- OUTSIDE RECORDS SUMMARY | 2021-11-18 12:35 | XMS_ITS | Encounter Summary ---
:1945 Author Organization [facility] Address [address] [place] [address] Care Team Providers Name Role Phone Unavailable Primary Care Provider Unavailable Encounter Details Date Type Department Care Team Description 07/21/2021 Orders [facility] f Ernie Guzmán MD [address] [place] [address] [place], [place] [phone] (Wo rk) Social History Tobacco Use [...] 07/24/2021 Unless otherwise specified, test(s) performed at: [facility], [address] [place] [address] CHIEF ENGINEERING DIVISION: Alec Payan M.D. For any questions, please [...] 07/24/2021 Unless otherwise specified, test(s) performed at: [facility], [address] [place] [address] CHIEF ENGINEERING DIVISION: Alec Payan M.D. For any questions, please call customer service at FREQUENCY:MONTHLY Resulting Agency Comment Specimen source: Serum Ernie Pompa MD LAB BLOOD ORDERABLES Performing Organization Address City/[facility] Phon e Number [facility]PS SPECTRA [facility] POST CHEMISTRY (07/21/2021) P athologist Signature BUN Post 14 6 - 19 APS SPECTRA Dialysis mg/dL [facility] Specimen (Source) Anatomical Collection Method Collection Time Re ceived Time Location / / Volume Laterality 07/21/2021 07/23/2021 4:30 PM CDT Narrative APS SPECTRA [facility] - 07/24/2021 Unless otherwise specified, test(s) performed at: [facility], [address] [place] [address] CHIEF ENGINEERING DIVISION: Alec Payan M.D. For any questions, please call customer service at FREQUENCY:MONTHLY Resulting Agency Comment Specimen source: Plasma Ernie Pompa MD LAB BLOOD ORDERABLES Performing Organization Address City/[facility] Phon e Number APS SPECTRA [facility] IMMUNO CHEMISTRY (07/21/2021) P athologist Signature Hep B Surface Negative Negative APS SPECTRA Ag [facility] Specimen (Source) Anatomical Collection Method Collection Time Re ceived Time Location / / Volume Laterality 07/21/2021 07/23/2021 12:4 6 PM CDT Narrative APS SPECTRA [facility] - 07/23/2021 Unless otherwise specified, test(s) performed at: [facility], [address] [place] [address] CHIEF ENGINEERING DIVISION: Alec Payan M.D. For any questions, please [...] 07/23/2021 Unless otherwise specified, test(s) performed at: [facility], [address] [place] [address] CHIEF ENGINEERING DIVISION: Alec Payan M.D. For any questions, please call customer service at FREQUENCY:MONTHLY Resulting Agency Comment Specimen source: Blood Ernie Pompa MD LAB BLOOD ORDERABLES Performing Organization Address City/State/ZIP Code Phon e Number [facility]PS SPECTRA [facility] documented in this encounter Visit Diagnoses Not on filedocumented in this encounter
--- OUTSIDE RECORDS SUMMARY | 2021-11-18 12:35 | XMS_ITS | Encounter Summary ---
:1945 Author Organization [facility] Address [address] [place] [address] Care Team Providers Name Role Phone Unavailable Primary Care Provider Unavailable Encounter Details Date Type Department Care Team Description 10/20/2021 Orders Only [facility] f Ernie Guzmán MD [address] [place] [address] [place], [place] [phone] (Wo rk) Social History Tobacco Use [...] LAB BLOOD ORDERABLES Performing Organization Address City/[facility]/ZIP Code Phon e Number APS SPECTRA [facility] POST CHEMISTRY (10/20/2021) athologist Signature BUN Post 11 6 - 19 APS SPECTRA Dialysis mg/dL [facility] Specimen (Source) Anatomical Collection Method Collection Time Re ceived Time Location / / Volume Laterality 10/20/2021 10/21/2021 3:38 AM CDT Narrative APS SPECTRA [facility] - 10/21/2021 Unless otherwise specified, test(s) performed at: [facility], [address] [place] [address], [place] [address] TIRE SERVICE SUPERVISOR: Alhaji Noguera M.D., Ph.D For any questions, please call customer service at FREQUENCY:MONTHLY Resulting Agency Comment Specimen source: Plasma Ernie Pompa MD LAB BLOOD ORDERABLES Performing Organization Address City/State/ZIP Code Phon e Number APS SPECTRA [facility] (ABNORMAL) Spectrae Chemistry (10/20/2021) [facility] gist Method Time Signature [...] 10/21/2021 Unless otherwise specified, test(s) performed at: [facility], [address] [place] [address], [place] [address] TIRE SERVICE SUPERVISOR: Alhaji Noguera M.D., Ph.D For any questions, [...] 10/21/2021 Unless otherwise specified, test(s) performed at: [facility], [address] [place] [address], [place] [address] TIRE SERVICE SUPERVISOR: Alhaji Noguera M.D., Ph.D For any questions, please call customer service at FREQUENCY:MONTHLY Resulting Agency Comment Specimen source: Blood Ernie Pompa MD LAB BLOOD ORDERABLES Performing Organization Address [facility] Phon e Number APS SPECTRA [facility] IMMUNO CHEMISTRY (10/20/2021) P athologist Signature Hep B Surface Negative Negative APS SPECTRA Ag [facility] Specimen (Source) Anatomical Collection Method Collection Time Re ceived Time Location / / Volume Laterality 10/20/2021 10/21/2021 3:50 AM CDT Narrative APS SPECTRA [facility] - 10/21/2021 Unless otherwise specified, test(s) performed at: [facility], [address] [place] [address], [place] [address] TIRE SERVICE SUPERVISOR: Alhaji Noguera M.D., Ph.D For any questions, please call customer service at FREQUENCY:MONTHLY Resulting Agency Comment Specimen source: Plasma Ernie Pompa MD LAB BLOOD ORDERABLES Performing Organization Address [facility]/ZIP Code Phon e Number APS SPECTRA [facility] documented in this encounter Visit Diagnoses Not on filedocumented in this encounter
--- OUTSIDE RECORDS SUMMARY | 2021-11-18 12:35 | XMS_ITS | Encounter Summary ---
:1945 Author Organization [facility] Address [address] [place] [address] Care Team Providers Name Role Phone Unavailable Primary Care Provider Unavailable Encounter Details Date Type Department Care Team Description 09/29/2021 Treatment [facility] f Ernie Guzmán MD [address] [place] [address] [place], [place] [phone] (Wo rk) Social History Tobacco Use Types Packs/Day Years Used Date Smoking Tobacco: Unknown Comments: Smoking History Info:Patient n ot screened Sex Assigned at Date Recorded Not on file documented as of this encounter Miscellaneous Notes Dialysis Note - Ernie Pompa MD - 09/29/2021 10:30 AM CDT Date: Sep 29, 2021 Patient Name: Shaun Ocampo : 1945 Chart #: [id number] Sex: M This patient was personally seen [...] AM ) BP (sit): 109/45 AP(-) / DIRECTOR OF PLANT OPERATIONS: 168/138 Pulse: 57 Chairside data as of [...] mcg IVP Every 2 weeks 09/29/2021 09/28/2022 HOTEL OR MOTEL ROOM SERVICE SUPERVISOR: Ernie Pompa MD LOCATION: [phone] SCHEDULE: -- 2nd Shift EDW: kg. DIALYZER: [...] and do periodic extra UF treatments at [place] rather than risk more hypotension post-tx with use of midodrine and additional UF during treatments. He has fistulagram last week, went well and access working well since. 08/11: Continues to have problems with fluid gains. we have spent considerable time discussing this, he is trying to work on this but can't seem to avoid large gains. Will go to [place] for UF tomorrow, needs extra treatments every 2 weeks it looks like to maintain EDW. He does get SOB when >5K over dry weight in particular. 07/21/21: Continues to struggle with fluid gains, extra UF run scheduled tomorrow at [place]. He does feel more SOB when fluid overloaded. No new symptoms otherwise, he is enjoying the nicer weather which allows him to do more activity and not sit at home and drink fluids which he thinks will help with IDWG's. 07/14/21: Continues to have high gains, unfortunately [place] without staff to open tomorrow for extra [...] improving. Fluid gains continue to be high, [place] not open on this week, says he will do his best withlimiting salt/fluid. HE does feel SOB with exertion with extra fluid on, no orthopnea. 05/26/21: Has SOB when >5 Kg over dry weight, extra run last week at [place] helped. Trying his best with fluid restriction. [...] extra run and we discussed going to [place] tomorrow for UF only run and he [...] again today, may need extra run at [place] if can't get down over next week. 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 06/10: Doing well overall, no new complaints, [...] Went to Urgent care -> ER in [place] yesterday,CT with R hydro but no obstructive [...] prescription. Vascular Access Assessment Type of access: [id number]/2019 Surgeon - Lary GARDNER 08/2021: [place] [facility] [place] completed Anemia Assessment [...] at goal. Intact PTH is above goal. Quality Assurance Calibrator will adjust binders and vitamin D per [...] remain high Extra UF run tomorrow at [place] Transplant Status: Patient is not a candidate. Weight, co-morbidities, age Resuscitation Status Stable dialysis, no changes to prescription Extra UF run at [place] tomorrow Ongoing attempts at lower IDWG's Discussed [...]
--- OUTSIDE RECORDS SUMMARY | 2021-11-18 12:35 | XMS_ITS | Encounter Summary ---
:1945 Author Organization [facility] Address [address] [place] [address] Care Team Providers Name Role Phone Unavailable Primary Care Provider Unavailable Encounter Details Date Type Department Care Team Description 09/13/2021 Orders [facility] O f Ernie Guzmán MD [address] [place] [address] [place], [place] [phone] (Wo rk) Social History Tobacco Use [...] 09/14/2021 Unless otherwise specified, test(s) performed at: [facility], [address] [place] [address] FLEECER: Alec Payan M.D. For any questions, please [...] 09/14/2021 Unless otherwise specified, test(s) performed at: [facility], [address] [place] [address] FLEECER: Alec Payan M.D. For any questions, please call customer service at FREQUENCY:OTHER Resulting Agency Comment Specimen source: Plasma Ernie Pompa MD LAB BLOOD ORDERABLES Performing Organization Address City/[facility]/ZIP Code Phon e Number APS SPECTRA [facility] documented in this encounter Visit Diagnoses Not on filedocumented in this encounter
--- OUTSIDE RECORDS SUMMARY | 2021-11-18 12:35 | XMS_ITS | Encounter Summary ---
:1945 Author Organization [facility] Address [address] [place] [address] Care Team Providers Name Role Phone Unavailable Primary Care Provider Unavailable Encounter Details Date Type Department Care Team Description 09/15/2021 Orders [facility] O f Ernie Guzmán MD [phone] [place] [address] [place], [place] [phone] (Wo rk) Social History Tobacco Use [...] 09/16/2021 Unless otherwise specified, test(s) performed at: [facility], [address] [place] [address] TANK CLEANING SUPERVISOR: Alec Payan M.D. For any questions, please call customer service at FREQUENCY:OTHER Resulting Agency Comment Specimen source: Blood Ernie Pompa MD LAB BLOOD ORDERABLES Performing Organization Address City/State/ZIP Code Phon e Number APS SPECTRA [facility] documented in this encounter Visit Diagnoses Not on filedocumented in this encounter
--- OUTSIDE RECORDS SUMMARY | 2021-11-18 12:35 | XMS_ITS | Encounter Summary ---
:1945 Author Organization [facility] Address [address] [place] [address] Care Team Providers Name Role Phone Unavailable Primary Care Provider Unavailable Encounter Details Date Type Department Care Team Description 09/08/2021 Orders [facility] O f Ernie Guzmán MD [address] [place] [address] [place], [place] [phone] (Wo rk) Social History Tobacco Use [...] 09/09/2021 Unless otherwise specified, test(s) performed at: [facility], [address] [place] [address] SLAT BASKET MAKER HELPER MACHINE: Alec Payan M.D. For any questions, please call customer service at FREQUENCY:OTHER Resulting Agency Comment Specimen source: Blood Ernie Pompa MD LAB BLOOD ORDERABLES Performing Organization Address City/State/ZIP Code Phon e Number APS SPECTRA [facility] documented in this encounter Visit Diagnoses Not on filedocumented in this encounter
--- OUTSIDE RECORDS SUMMARY | 2021-11-18 12:35 | XMS_ITS | Encounter Summary ---
:1945 Author Organization [facility] Address [address] [place] [address] Care Team Providers Name Role Phone Unavailable Primary Care Provider Unavailable Encounter Details Date Type Department Care Team Description 10/06/2021 [facility] O f Ernie Guzmán MD [phone] [place] [address] [place], [place] [phone] (Wo rk) Social History Tobacco Use [...] 10/07/2021 Unless otherwise specified, test(s) performed at: [facility], [address] [place] [address], [place] [address] UNDERWRITING SALES REPRESENTATIVE: Alhaji Noguera M.D., Ph.D For any questions, please call customer service at FREQUENCY:OTHER Resulting Agency Comment Specimen source: Blood Ernie Pompa MD LAB BLOOD ORDERABLES Performing Organization Address City/State/ZIP Code Phon e Number [facility]PS SPECTRA [facility] documented in this encounter Visit Diagnoses Not on filedocumented in this encounter
--- OUTSIDE RECORDS SUMMARY | 2021-11-18 12:35 | XMS_ITS | Encounter Summary ---
:1945 Author Organization [facility] Address [address] [place] [address] Care Team Providers Name Role Phone Unavailable Primary Care Provider Unavailable Encounter Details Date Type Department Care Team Description 08/04/2021 [facility] O f Ernie Guzmán MD [phone] [place] [address] [place], [place] [phone] (Wo rk) Social History Tobacco Use [...] 08/06/2021 Unless otherwise specified, test(s) performed at: [facility], [address] [place] [address] WOOD AND HARDWARE OUTFITTER: Alec Payan M.D. For any questions, please [...] 2021 Unless otherwise specified, test(s) performed at: [facility], [address] [place], [place] [id number] WOOD AND HARDWARE OUTFITTER: Alec Payan M.D. For any questions, please call customer service at FREQUENCY:OTHER Resulting Agency Comment Specimen source: Plasma Ernie Pompa MD LAB BLOOD ORDERABLES Performing Organization Address [facility] [...] 2021 Unless otherwise specified, test(s) performed at: [facility], [address] [place] [address] WOOD AND HARDWARE OUTFITTER: Alec Payan M.D. For any questions, please call customer service at FREQUENCY:OTHER Resulting Agency Comment Specimen source: Blood Ernie Pompa MD LAB BLOOD ORDERABLES Performing Organization Address City/[facility] Phon e Number [facility]PS SPECTRA [facility] documented in this encounter Visit Diagnoses Not on filedocumented in this encounter
--- OUTSIDE RECORDS SUMMARY | 2021-11-18 12:35 | XMS_ITS | Encounter Summary ---
:1945 Author Organization [facility] Address [address] [place] [address] Care Team Providers Name Role Phone Unavailable Primary Care Provider Unavailable Encounter Details Date Type Department Care Team Description 10/13/2021 Treatment [facility] f Ernie Guzmán MD [address] [place] [address] [place], [place] [phone] (Wo rk) Social History Tobacco Use Types Packs/Day Years Used Date Smoking Tobacco: Unknown Comments: Smoking History Info:Patient n ot screened Sex Assigned at Date Recorded Not on file documented as of this encounter Miscellaneous Notes Dialysis Note - Ernie Pompa MD - 10/13/2021 12:07 PM CDT Date: Oct 13, 2021 Patient Name: Shaun Ocampo : 1945 Chart #: [id number] Sex: M This patient was personally seen for a basic visit as part of routine weekly dialysis care. A reviewof the dialysis treatment, blood pressure, estimated dry weight and recent lab values was made. These were discussed with the patient and staff as necessary. UPHOLSTERY SEWER: Ernie Pompa MD LOCATION: [phone] SCHEDULE: M-W-F 2nd Shift ACCESS: EDW: kg. DIALYZER: HD DURATION: NEEDLE SIZE: ANTICOAG: BATH: QB: ml/min QD: ml/min Subjective Tolerating dialysis well. 10/13: Had GI bleeding on Monday, went to ER after dialysis, admitted at [facility], had 3u blood, EGDwithout obvious [...] and do periodic extra UF treatments at [facility] rather than risk more hypotension post-tx with use of midodrine and additional UF during treatments. He has fistulagram last week, went well and access working well since. 08/11: Continues to have problems with fluid gains. we have spent considerable time discussing this, he is trying to work on this but can't seem to avoid large gains. Will go to [place] for UF tomorrow, needs extra treatments every 2 weeks it looks like to maintain EDW. He does get SOB when >5K over dry weight in particular. 07/21/21: Continues to struggle with fluid gains, extra UF run scheduled tomorrow at [place]. He does feel more SOB when fluid overloaded. No new symptoms otherwise, he is enjoying the nicer weather which allows him to do more activity and not sit at home and drink fluids which he thinks will help with IDWG's. 07/14/21: Continues to have high gains, unfortunately [facility] without staff to open tomorrow for extra [...] improving. Fluid gains continue to be high, [facility] not open on this week, says he will do his best withlimiting salt/fluid. HE does feel SOB with exertion with extra fluid on, no orthopnea. 05/26/21: Has SOB when >5 Kg over dry weight, extra run last week at [facility] helped. Trying his best with fluid restriction. [...] extra run and we discussed going to [facility] tomorrow for UF only run and he [...] again today, may need extra run at [facility] if can't get down over next week. 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 06/10: Doing well overall, no new complaints, [...] Went to Urgent care -> ER in [place] yesterday,CT with R hydro but no obstructive [...] had infiltration last week, dialyzed at [facility] on Sat and went well, access [...] (08/20/21) Vascular Access Assessment: Type of access: [id number] Surgeon - Lary GARDNER 08/2021: fistulagram at [facility] with angioplasty of stenosis completed Impression and [...] Name: Shaun Ocampo : 1945 Chart #: [id number] Sex: M Patient has transitioned out of the following type of facility within the past 30 days: Discharging Facility: [facility] Patient caregiver is present? If yes, [...]
--- OUTSIDE RECORDS SUMMARY | 2021-11-18 12:35 | XMS_ITS | Encounter Summary ---
:1945 Author Organization [facility] Address [address] [place] [address] Care Team Providers Name Role Phone Unavailable Primary Care Provider Unavailable Encounter Details Date Type Department Care Team Description 10/27/2021 Treatment [facility] O f Ernie Guzmán MD [address] [place] [address] [place], [place] [phone] (Wo rk) Social History Tobacco Use Types Packs/Day Years Used Date Smoking Tobacco: Unknown Comments: Smoking History Info:Patient n ot screened Sex Assigned at Date Recorded Not on file documented as of this encounter Miscellaneous Notes Dialysis Note - Ernie Pompa MD - 10/27/2021 10:07 AM CDT Date: Oct 27, 2021 Patient Name: Shaun Ocampo : 1945 Chart #: [id number] Sex: M This patient was personally seen [...] AM ) BP (sit): 99/43 AP(-) / GAS OR WATER METER INSTALLER: 176/154 Pulse: 62 Chairside data as of [...] 08/27/2021 05/28/2021 04/23/2021 Access Flow [id number] Treatment Medication Orders Medication Sig Start [...] mcg IVP Every 2 weeks 10/27/2021 10/26/2022 MUNICIPAL ENGINEER: Ernie Pompa MD LOCATION: [place] [phone] SCHEDULE: -W- 2nd Shift EDW: kg. DIALYZER: HD DURATION: NEEDLE SIZE: ANTICOAG: BATH: QB: ml/min QD: ml/min Subjective Tolerating dialysis well. 10/27/21: He is doing much better after extra UF run last week at [place]. BP adequate, challengingEDW today. His breathing is improved. Also went to wound care clinic at [facility] and they dressedwounds and he has follow-up and instructions for dressings and cares. He has no new symptoms and otherwise feels well. 10/13: Had GI bleeding on Monday, went to ER after dialysis, admitted at [facility], had 3u blood, EGDwithout obvious source, ASA [...] and do periodic extra UF treatments at [place] rather than risk more hypotension post-tx with use of midodrine and additional UF during treatments. He has fistulagram last week, went well and access working well since. 08/11: Continues to have problems with fluid gains. we have spent considerable time discussing this, he is trying to work on this but can't seem to avoid large gains. Will go to [place] for UF tomorrow, needs extra treatments every 2 weeks it looks like to maintain EDW. He does get SOB when >5K over dry weight in particular. 07/21/21: Continues to struggle with fluid gains, extra UF run scheduled tomorrow at [place]. He does feel more SOB when fluid overloaded. No new symptoms otherwise, he is enjoying the nicer weather which allows him to do more activity and not sit at home and drink fluids which he thinks will help with IDWG's. 07/14/21: Continues to have high gains, unfortunately [place] without staff to open tomorrow for extra [...] had steroid injections in knees yesterday at [facility]. To do PT as well. He pulled muscle in his lower arm on L side last week getting into car, hurt a lot but is improving. Fluid gains continue to be high, [place] not open on this week, says he will do his best withlimiting salt/fluid. HE does feel SOB with exertion with extra fluid on, no orthopnea. 05/26/21: Has SOB when >5 Kg over dry weight, extra run last week at [place] helped. Trying his best with fluid restriction. [...] extra run and we discussed going to [place] tomorrow for UF only run and he [...] again today, may need extra run at [place] if can't get down over next week. 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 06/10: Doing well overall, no new complaints, [...] Went to Urgent care -> ER in [place] yesterday,CT with R hydro but no obstructive [...] prescription. Vascular Access Assessment Type of access: [id number]/[email or web address] Surgeon - Lary GARDNER 08/2021: fistulagram at [facility] with angioplasty of stenosis completed Anemia Assessment [...] below goal. Intact PTH is above goal. Dewer will adjust binders and vitamin D per [...] high Extra UF run needed occasionally at [place] when they are open, did last week [...]
--- OUTSIDE RECORDS SUMMARY | 2021-11-18 12:35 | XMS_ITS | Encounter Summary ---
:1945 Author Organization [facility] Address [address] [place] [address] Care Team Providers Name Role Phone Unavailable Primary Care Provider Unavailable Encounter Details Date Type Department Care Team Description 08/20/2021 Orders Only [facility] O f Ernie Guzmán MD [address] [place] [address] [place], [place] [phone] (Wo rk) Social History Tobacco Use [...] 08/21/2021 Unless otherwise specified, test(s) performed at: [facility], [address] [place] [address] POOL HALL INSPECTOR: Alec Payan M.D. For any questions, please call customer service at FREQUENCY:OTHER Resulting Agency Comment Specimen source: Plasma Ernie Pompa MD LAB BLOOD ORDERABLES Performing Organization Address City/State/ZIP Code Phon e Number APS SPECTRA [facility] documented in this encounter Visit Diagnoses Not on filedocumented in this encounter
--- OUTSIDE RECORDS SUMMARY | 2021-11-18 12:35 | XMS_ITS | Encounter Summary ---
:1945 Author Organization [facility] Address [address] [place] [address] Care Team Providers Name Role Phone Unavailable Primary Care Provider Unavailable Encounter Details Date Type Department Care Team Description 09/01/2021 Orders [facility] O f Ernie Guzmán MD [address] [place] [address] [place], [place] [phone] (Wo rk) Social History Tobacco Use [...] 09/03/2021 Unless otherwise specified, test(s) performed at: [facility], [address] [place] [address] DIRECTOR PLANS: Alec Payan M.D. For any questions, please call customer service at FREQUENCY:OTHER Resulting Agency Comment Specimen source: Serum Ernie Pompa MD LAB BLOOD ORDERABLES Performing Organization Address City/[facility] Phon e Number APS SPECTRA [facility] [...] 09/02/2021 Unless otherwise specified, test(s) performed at: [facility], [address] [place] [address] DIRECTOR PLANS: Alec Payan M.D. For any questions, please call customer service at FREQUENCY:OTHER Resulting Agency Comment Specimen source: Blood Ernie Pompa MD LAB BLOOD ORDERABLES Performing Organization Address City/[facility] Phon e Number APS SPECTRA [facility] documented in this encounter Visit Diagnoses Not on filedocumented in this encounter
--- OUTSIDE RECORDS SUMMARY | 2021-11-18 12:35 | XMS_ITS | Encounter Summary ---
:1945 Author Organization [facility] Address [address] [place] [address] Care Team Providers Name Role Phone Unavailable Primary Care Provider Unavailable Encounter Details Date Type Department Care Team Description 07/14/2021 Orders [facility] O f Ernie Guzmán MD [address] [place] [address] [place], [place] [phone] (Wo rk) Social History Tobacco Use [...] 07/15/2021 Unless otherwise specified, test(s) performed at: [facility] [employer] [address] [place] [address] CYBER ANALYST: Alec Payan M.D. For any questions, please call customer service at FREQUENCY:OTHER Resulting Agency Comment Specimen source: Blood Ernie Pompa MD LAB BLOOD ORDERABLES Performing Organization Address City/State/ZIP Code Phon e Number [facility]PS SPECTRA [facility] documented in this encounter Visit Diagnoses Not on filedocumented in this encounter
--- OUTSIDE RECORDS SUMMARY | 2021-11-18 12:35 | XMS_ITS | Encounter Summary ---
:1945 Author Organization [facility] Address [address] [place] [address] Care Team Providers Name Role Phone Unavailable Primary Care Provider Unavailable Encounter Details Date Type Department Care Team Description 08/11/2021 Orders [facility] O f Ernie Guzmán MD [address] [place] [address] [place], [place] [phone] (Wo rk) Social History Tobacco Use [...] 08/12/2021 Unless otherwise specified, test(s) performed at: [facility], [address] [place] [address] WINDOWS CONSULTANT: Alec Payan M.D. For any questions, please call customer service at FREQUENCY:OTHER Resulting Agency Comment Specimen source: Blood Ernie Pompa MD LAB BLOOD ORDERABLES Performing Organization Address City/State/ZIP Code Phon e Number APS SPECTRA [facility] documented in this encounter Visit Diagnoses Not on filedocumented in this encounter
--- OUTSIDE RECORDS SUMMARY | 2021-11-18 12:35 | XMS_ITS | Encounter Summary ---
:1945 Author Organization [facility] Address [address] [place] [address] Care Team Providers Name Role Phone Unavailable Primary Care Provider Unavailable Encounter Details Date Type Department Care Team Description 06/30/2021 Orders Only [facility] O f Ernie Guzmán MD [address] [place] [address] [place], [place] [phone] (Wo rk) Social History Tobacco Use [...] 07/01/2021 Unless otherwise specified, test(s) performed at: [facility], [address] [place] [address] FIELD OPERATIONS COORDINATOR: Alec Payan M.D. For any questions, please call customer service at FREQUENCY:OTHER Resulting Agency Comment Specimen source: Blood Ernie Pompa MD LAB BLOOD ORDERABLES Performing Organization Address City/State/ZIP Code Phon e Number APS SPECTRA [facility] documented in this encounter Visit Diagnoses Not on filedocumented in this encounter
--- OUTSIDE RECORDS SUMMARY | 2021-11-18 12:35 | XMS_ITS | Encounter Summary ---
:1945 Author Organization [facility] Address [address] [place] [address] Care Team Providers Name Role Phone Unavailable Primary Care Provider Unavailable Encounter Details Date Type Department Care Team Description 08/18/2021 Orders [facility] O f Ernie Guzmán MD [address] [place] [address] [place], [place] [phone] (Wo rk) Social History Tobacco Use [...] Provider LAB BLOOD ORDERABLES Performing Organization Address City/[facility]/ZIP Code Phon e Number [facility] (08/18/2021) P athologist Signature % Urea 67 65 - 80 % APS SPECTRA Reduction [facility] Specimen (Source) Anatomical Collection Method Collection Time Re ceived Time Location / / Volume Laterality 08/18/2021 08/20/2021 12:5 8 AM CDT Resulting Agency Comment Specimen source: Plasma Ernie Pompa MD LAB BLOOD ORDERABLES Performing Organization Address [place]/[facility]/ZIP Code Phon e Number APS SPECTRA [facility] POST CHEMISTRY (08/18/2021) P athologist Signature BUN Post 17 6 - 19 APS SPECTRA Dialysis mg/dL [facility] Specimen (Source) Anatomical Collection Method Collection Time Re ceived Time Location / / Volume Laterality 08/18/2021 08/20/2021 12:5 8 AM CDT Narrative APS SPECTRA [facility] - 08/20/2021 Unless otherwise specified, test(s) performed at: [facility], [address] [place] [address] TANK CLEANING SUPERVISOR: Alec Payan M.D. For any questions, please call customer service at FREQUENCY:MONTHLY Resulting Agency Comment Specimen source: Plasma Ernie Pompa MD LAB BLOOD ORDERABLES Performing Organization Address City/[facility]/ZIP Code Phon e Number APS SPECTRA [...] 08/20/2021 Unless otherwise specified, test(s) performed at: [facility], [address] [place] [address] TANK CLEANING SUPERVISOR: Alec Payan M.D. For any questions, please call customer service at FREQUENCY:MONTHLY Resulting Agency Comment Specimen source: Blood Ernie Pompa MD LAB BLOOD ORDERABLES Performing Organization Address City/[facility] Phon e Number APS SPECTRA [facility] (ABNORMAL) Spectrae Chemistry (08/18/2021) P athologist Signature PTH 766 (H) 16 - 80 APS SPECTRA pg/mL [facility] Specimen (Source) Anatomical Collection Method Collection Time Re ceived Time Location / / Volume Laterality 08/18/2021 08/19/2021 8:21 PM CDT Narrative APS SPECTRA [facility] - 08/20/2021 Unless otherwise specified, test(s) performed at: [facility], [address] [place] [address] TANK CLEANING SUPERVISOR: Alec Payan M.D. For any questions, please call customer service at FREQUENCY:MONTHLY Resulting Agency Comment Specimen source: Plasma Ernie Pompa MD LAB BLOOD ORDERABLES Performing Organization Address City/[facility] Phon e Number APS SPECTRA [...] 08/20/2021 Unless otherwise specified, test(s) performed at: [facility], [address] [place] [address] TANK CLEANING SUPERVISOR: Alec Payan M.D. For [...] 08/19/2021 Unless otherwise specified, test(s) performed at: [facility], [address] [place] [address] TANK CLEANING SUPERVISOR: Alec Payan M.D. For any questions, please call customer service at FREQUENCY:MONTHLY Resulting Agency Comment Specimen source: Serum Ernie Pompa MD LAB BLOOD ORDERABLES Performing Organization Address City/State/ZIP Code Phon e Number [facility]PS SPECTRA [facility] documented in this encounter Visit Diagnoses Not on filedocumented in this encounter
--- OUTSIDE RECORDS SUMMARY | 2021-11-18 12:35 | XMS_ITS | Encounter Summary ---
:1945 Author Organization [facility] Address [address] [place] [address] Care Team Providers Name Role Phone Unavailable Primary Care Provider Unavailable Encounter Details Date Type Department Care Team Description 07/28/2021 Orders Only [facility] O f Ernie Guzmán MD [address] [place] [address] [place], [place] [phone] (Wo rk) Social History Tobacco Use [...] in this encounter Results (ABNORMAL) HEMATOLOGY (07/28/2021) [facility] gist Method Time Signature Hemoglobin 9.9 [...] 07/29/2021 Unless otherwise specified, test(s) performed at: [facility], [address] [place] [address] CREDIT ASSISTANT: Alec Payan M.D. For any questions, please call customer service at FREQUENCY:OTHER Resulting Agency Comment Specimen source: Blood Ernie Pompa MD LAB BLOOD ORDERABLES Performing Organization Address City/State/ZIP Code Phon e Number APS SPECTRA [facility] documented in this encounter Visit Diagnoses Not on filedocumented in this encounter
--- OUTSIDE RECORDS SUMMARY | 2021-11-18 12:35 | XMS_ITS | Encounter Summary ---
:1945 Author Organization [facility] Address [address] [place] [address] Care Team Providers Name Role Phone Unavailable Primary Care Provider Unavailable Encounter Details Date Type Department Care Team Description 08/30/2021 Orders Only [facility] O f Ernie Guzmán MD [address] [place] [address] [place], [place] [phone] (Wo rk) Social History Tobacco Use [...] 08/31/2021 Unless otherwise specified, test(s) performed at: [employer] [facility] [facility] [employer] [facility], [address] [place] [address] BRICKMASON APPRENTICE: Alec Payan M.D. For any questions, please call customer service at FREQUENCY:OTHER Resulting Agency Comment Specimen source: Serum Ernie Pompa MD LAB BLOOD ORDERABLES Performing Organization Address City/[facility] Phon e Number APS SPECTRA [facility] (ABNORMAL) Spectrae Chemistry (08/30/2021) athologist Signature BUN 55 (H) 6 - 19 [facility]PS SPECTRA mg/dL [facility] Specimen (Source) Anatomical Collection Method Collection Time Re ceived Time Location / / Volume Laterality 08/30/2021 08/31/2021 5:11 PM CDT Narrative APS SPECTRA [facility] - 08/31/2021 Unless otherwise specified, test(s) performed at: [employer] [facility], [address] [place] [address] BRICKMASON APPRENTICE: Alec Payan M.D. For any questions, please call customer service at FREQUENCY:OTHER Resulting Agency Comment Specimen source: Serum Ernie Pompa MD LAB BLOOD ORDERABLES Performing Organization Address City/[facility] Phon e Number [facility]PS SPECTRA [facility] POST CHEMISTRY (08/30/2021) athologist Signature BUN Post 16 6 - 19 APS SPECTRA Dialysis mg/dL [facility] Specimen (Source) Anatomical Collection Method Collection Time Re ceived Time Location / / Volume Laterality 08/30/2021 08/31/2021 1:52 PM CDT Narrative APS SPECTRA [facility] - 08/31/2021 Unless otherwise specified, test(s) performed at: [employer], [address] [place] [address] BRICKMASON APPRENTICE: Alec Payan M.D. For any questions, please call customer service at FREQUENCY:OTHER Resulting Agency Comment Specimen source: Plasma Ernie Pompa MD LAB BLOOD ORDERABLES Performing Organization Address City/State/ZIP Code Phon e Number [facility]PS SPECTRA [facility] documented in this encounter Visit Diagnoses Not on filedocumented in this encounter
--- OUTSIDE RECORDS SUMMARY | 2021-11-18 12:35 | XMS_ITS | Encounter Summary ---
:1945 Author Organization [facility] Address [address] [place] [address] Care Team Providers Name Role Phone Unavailable Primary Care Provider Unavailable Encounter Details Date Type Department Care Team Description 08/11/2021 Treatment [facility] f Ernie Guzmán MD [address] [place] [address] [place], [place] [phone] (Wo rk) Social History Tobacco Use Types Packs/Day Years Used Date Smoking Tobacco: Unknown Comments: Smoking History Info:Patient n ot screened Sex Assigned at Date Recorded Not on file documented as of this encounter Miscellaneous Notes Dialysis Note - Ernie Pompa MD - 08/11/2021 10:15 AM CDT Date: August 11, 2021 Patient Name: Shaun Ocampo : 1945 Chart #: [id number] Sex: M This patient was personally seen [...] AM ) BP (sit): 97/38 AP(-) / SUMMER LAW ASSOCIATE: 177/134 Pulse: 67 Chairside data as of [...] 50 mg IVP 1X Week 07/26/2021 07/25/2022 APICULTURIST: Ernie Pompa MD LOCATION: [phone] SCHEDULE: -- 2nd Shift ACCESS: EDW: kg. DIALYZER: HD DURATION: NEEDLE SIZE: ANTICOAG: BATH: QB: ml/min QD: ml/min Subjective Tolerating dialysis well. 08/11: Continues to have problems with fluid gains. we have spent considerable time discussing this, he is trying to work on this but can't seem to avoid large gains. Will go to [facility] for UF tomorrow, needs extra treatments every 2 weeks it looks like to maintain EDW. He does get SOB when >5K over dry weight in particular. 07/21/21: Continues to struggle with fluid gains, extra UF run scheduled tomorrow at [facility]. He does feel more SOB when fluid overloaded. No new symptoms otherwise, he is enjoying the nicer weather which allows him to do more activity and not sit at home and drink fluids which he thinks will help with IDWG's. 07/14/21: Continues to have high gains, unfortunately [facility] without staff to open tomorrow for extra [...] improving. Fluid gains continue to be high, [facility] not open on this week, says he will do his best withlimiting salt/fluid. HE does feel SOB with exertion with extra fluid on, no orthopnea. 05/26/21: Has SOB when >5 Kg over dry weight, extra run last week at [facility] helped. Trying his best with fluid restriction. [...] extra run and we discussed going to [facility] tomorrow for UF only run and he [...] again today, may need extra run at [facility] if can't get down over next week. 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 06/10: Doing well overall, no new complaints, [...] Went to Urgent care -> ER in [place] yesterday,CT with R hydro but no obstructive [...] (06/23/21) Vascular Access Assessment: Type of access: [id number]/2019 Surgeon - Lary GARDNER Access working well Impression and Plan Stable dialysis overall, no changes to prescription made Parsabiv to continue, calcitriol increase as able with Ca lower on this to get PTH to goal but is improving and phos is controlled Extra UF run tomorrow in [facility], ongoing extra UF runs will likely be necessary with inability toget to EDW consistently Ernie Pompa MD [ Signed And locked electronically On 08/11/2021 at 10:17:39 AM ] Transcribed: Ernie Pompa ( 08/11/2021 ) documented in this encounter Plan of Treatment Not on filedocumented as of this encounter Visit Diagnoses Not on filedocumented in this encounter
--- OUTSIDE RECORDS SUMMARY | 2021-11-18 12:35 | XMS_ITS | Encounter Summary ---
:1945 Author Organization [facility] Address [address] [place] [address] Care Team Providers Name Role Phone Unavailable Primary Care Provider Unavailable Encounter Details Date Type Department Care Team Description 10/13/2021 Orders [facility] f Ernie Guzmán MD [phone] [place] [address] [place], [place] [phone] (Wo rk) Social History Tobacco Use [...] 10/14/2021 Unless otherwise specified, test(s) performed at: [facility], [address] [place] [address], [place] [address] ENVIRONMENTAL HEALTH OFFICER: Alhaji Noguera M.D., Ph.D For any questions, please call customer service at FREQUENCY:OTHER Resulting Agency Comment Specimen source: Blood Ernie Pompa MD LAB BLOOD ORDERABLES Performing Organization Address City/State/ZIP Code Phon e Number [facility] documented in this encounter Visit Diagnoses Not on filedocumented in this encounter
--- OUTSIDE RECORDS SUMMARY | 2021-11-18 12:35 | XMS_ITS | Encounter Summary ---
:1945 Author Organization [facility] Address [address] [place] [address] Care Team Providers Name Role Phone Unavailable Primary Care Provider Unavailable Encounter Details Date Type Department Care Team Description 09/22/2021 Orders [facility] f Ernie Guzmán MD [phone] [place] [address] [place], [place] [phone] (Wo rk) Social History Tobacco Use [...] 09/24/2021 Unless otherwise specified, test(s) performed at: [facility], [address] [place] [address], [place] [address] HOURLY SHIFT MANAGER: Alhaji Noguera M.D., Ph.D For any [...] [facility] (ABNORMAL) Spectrae Chemistry (09/22/2021) [facility] gist Method Time Signature BUN 41 (H) [...] 09/24/2021 Unless otherwise specified, test(s) performed at: [facility], [address] [place] [address], [place] [address] HOURLY SHIFT MANAGER: Alhaji Noguera M.D., Ph.D For any questions, please call customer service at FREQUENCY:MONTHLY Resulting Agency Comment Specimen source: Serum Ernie Pompa MD LAB BLOOD ORDERABLES Performing Organization Address [facility] Phon e Number [facility] POST CHEMISTRY (09/22/2021) P athologist Signature BUN Post 12 6 - 19 [facility] Dialysis mg/dL [facility] Specimen (Source) Anatomical Collection Method Collection Time Re ceived Time Location / / Volume Laterality 09/22/2021 09/24/2021 4:03 PM CDT Narrative [facility] - 09/24/2021 Unless otherwise specified, test(s) performed at: [facility], [address] [place] [address] HOURLY SHIFT MANAGER: Alhaji Noguera M.D., Ph.D For any questions, please call customer service at FREQUENCY:MONTHLY Resulting Agency Comment Specimen source: Plasma Ernie Pompa MD LAB BLOOD ORDERABLES Performing Organization Address [facility] Phon e Number APS [...] 09/24/2021 Unless otherwise specified, test(s) performed at: [facility], [address] [place] [address] HOURLY SHIFT MANAGER: Alhaji Noguera M.D., Ph.D For any [...] 09/24/2021 Unless otherwise specified, test(s) performed at: [facility], [address] [facility] [place] [address] HOURLY SHIFT MANAGER: Alhaji Noguera M.D., Ph.D For any questions, please call customer service at FREQUENCY:MONTHLY Resulting Agency Comment Specimen source: Plasma Ernie Pompa MD LAB BLOOD ORDERABLES Performing Organization Address City/[facility] Phon e Number [facility] documented in this encounter Visit Diagnoses Not on filedocumented in this encounter
--- OUTSIDE RECORDS SUMMARY | 2021-11-18 12:35 | XMS_ITS | Encounter Summary ---
:1945 Author Organization [facility] Address [address] [place] [address] Care Team Providers Name Role Phone Unavailable Primary Care Provider Unavailable Encounter Details Date Type Department Care Team Description 06/23/2021 Orders [facility] f Ernie Guzmán MD [phone] [place] [address] [place], [place] [phone] (Wo rk) Social History Tobacco Use [...] Provider LAB BLOOD ORDERABLES Performing Organization Address City/[facility]/ZIP Code Phon e Number K[place]ERON (ABNORMAL) HEMATOLOGY [...] 06/28/2021 Unless otherwise specified, test(s) performed at: [facility], [address] [place], [place] [id number] BOX CAR WASHER: Alec Payan M.D. For any questions, please call customer service at FREQUENCY:MONTHLY Resulting Agency Comment Specimen source: Blood Ernie Pompa MD LAB BLOOD ORDERABLES Performing Organization Address City/[facility]/ZIP Code Phon e Number [facility]PS SPECTRA [facility] [...] Organization Address City/[facility]/ZIP Code Phon e Number [facility] POST CHEMISTRY (06/23/2021) P athologist Signature BUN Post 19 6 - 19 [facility] Dialysis mg/dL [facility] Specimen (Source) Anatomical Collection Method Collection Time Re ceived Time Location / / Volume Laterality 06/23/2021 06/28/2021 12:3 1 PM CDT Narrative [facility] - 06/28/2021 Unless otherwise specified, test(s) performed at: [facility], [address] [place] [address] BOX CAR WASHER: Alec Payan, M.D. For any questions, please [...] 06/28/2021 Unless otherwise specified, test(s) performed at: [facility], [address] [place] [address] BOX CAR WASHER: Alec Payan M.D. For any questions, please call customer service at FREQUENCY:MONTHLY Resulting Agency Comment Specimen source: Serum Ernie Pompa MD LAB BLOOD ORDERABLES Performing Organization Address City/[facility] Phon e Number [facility]PS S[facility]RA [facility] (ABNORMAL) Spectrae Chemistry (06/23/2021) P athologist Signature PTH 1,243 (H) 16 - 80 [facility] pg/mL [facility] Specimen (Source) Anatomical Collection Method Collection Time Re ceived Time Location / / Volume Laterality 06/23/2021 06/28/2021 10:1 5 AM CDT Narrative [facility] - 06/28/2021 Unless otherwise specified, test(s) performed at: [facility], [address] [place] [address] BOX CAR WASHER: Alec Payan M.D. For any questions, please call customer service at FREQUENCY:MONTHLY Resulting Agency Comment Specimen source: Plasma Ernie Pompa MD LAB BLOOD ORDERABLES Performing Organization Address City/[facility] Code Phon e Number [facility] documented in this encounter Visit Diagnoses Not on filedocumented in this encounter
--- OUTSIDE RECORDS SUMMARY | 2021-11-18 12:36 | XMS_ITS | Encounter Summary ---
:1945 Author Organization [facility] Address [address] [place] [address] Care Team Providers Name Role Phone Unavailable Primary Care Provider Unavailable Encounter Details Date Type Department Care Team Description 02/03/2021 Orders [facility] O f Ernie Guzmán MD [phone] [place] [address] [place], [place] [phone] (Wo rk) Social History Tobacco Use [...] Volume Laterality 02/03/2021 02/04/2021 11:2 7 AM LOGISTICS PLANNING MANAGER Narrative [facility] - 02/04/2021 Unless otherwise specified, test(s) performed at: [facility], [address] [place] [address] ZOO KEEPER: Alec Payan M.D. For any questions, please call customer service at FREQUENCY:OTHER Resulting Agency Comment Specimen source: Blood Ernie Pompa MD LAB BLOOD ORDERABLES Performing Organization Address City/State/ZIP Code Phon e Number [facility] documented in this encounter Visit Diagnoses Not on filedocumented in this encounter
--- OUTSIDE RECORDS SUMMARY | 2021-11-18 12:36 | XMS_ITS | Encounter Summary ---
:1945 Author Organization [facility] Address [address] [place] [address] Care Team Providers Name Role Phone Unavailable Primary Care Provider Unavailable Encounter Details Date Type Department Care Team Description 02/24/2021 Orders [facility] f Ernie Guzmán MD [phone] [place] [address] [place], [place] [phone] (Wo rk) Social History Tobacco Use [...] / Volume Laterality 02/24/2021 02/25/2021 6:54 PM DIRECTOR OF CASINO Narrative [facility] - 02/26/2021 Unless otherwise specified, test(s) performed at: [facility], [address] [place] [address] MACHINE TACK PULLER: Alec Payan M.D. For any questions, please [...] Volume Laterality 02/24/2021 02/25/2021 10:2 3 AM DIRECTOR OF CASINO Narrative [facility] - 02/25/2021 Unless otherwise specified, test(s) performed at: [facility], [address] [place] [address] MACHINE TACK PULLER: Alec Payan M.D. For any questions, please call customer service at FREQUENCY:OTHER Resulting Agency Comment Specimen source: Blood Ernie Pompa MD LAB BLOOD ORDERABLES Performing Organization Address City/[facility] Phon e Number [facility]RA [facility] documented in this encounter Visit Diagnoses Not on filedocumented in this encounter
--- OUTSIDE RECORDS SUMMARY | 2021-11-18 12:36 | XMS_ITS | Encounter Summary ---
:1945 Author Organization [facility] Address [address] [place] [address] Care Team Providers Name Role Phone Unavailable Primary Care Provider Unavailable Encounter Details Date Type Department Care Team Description 03/03/2021 Treatment [facility] O Ernie Gómez MD [address] [place] [address] [place], [place] [phone] [phone] (Wo rk) Social History Tobacco Use Types Packs/Day Years Used Date Smoking Tobacco: Unknown Comments: Smoking History Info:Patient n ot screened Sex Assigned at Date Recorded Not on file documented as of this encounter Miscellaneous Notes Dialysis Note - Ernie Pompa MD - 03/03/2021 9:56 AM CST Date: Mar 03, 2021 Patient Name: Shaun Ocampo : 1945 Chart #: [id number] Sex: M This patient was personally seen [...] AM ) BP (sit): 124/50 AP(-) / CHIEF NURSE EXECUTIVE: 188/160 Pulse: 72 Chairside data as of [...] 11/20/2020 Access Flow 1384 > 2000 1432 YIELD IMPROVEMENT ENGINEER: Ernie Pompa MD LOCATION: [place] [phone] SCHEDULE: -- 2nd Shift EDW: kg. DIALYZER: [...] again today, may need extra run at [place] if can't get down over next week. 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 06/10: Doing well overall, no new complaints, [...] lesion and I will discuss with Dr. Hernadnez of Urology next steps (repeat cysto with [...] Went to Urgent care -> ER in [place] yesterday,CT with R hydro but no obstructive [...] had infiltration last week, dialyzed at [facility] on Sat and went well, [...] prescription. Vascular Access Assessment Type of access: [id number]/2019 Surgeon - Lary KUMARW Access working well [...] above goal. Intact PTH is at goal. Contact Representative will adjust binders and vitamin D per [...]
--- OUTSIDE RECORDS SUMMARY | 2021-11-18 12:36 | XMS_ITS | Encounter Summary ---
:1945 Author Organization [facility] Address [address] [place] [address] Care Team Providers Name Role Phone Unavailable Primary Care Provider Unavailable Encounter Details Date Type Department Care Team Description 04/21/2021 Treatment [facility] f Ernie Gumzán MD [address] [place] [address] [place], [place] [phone] (Wo rk) Social History Tobacco Use Types Packs/Day Years Used Date Smoking Tobacco: Unknown Comments: Smoking History Info:Patient n ot screened Sex Assigned at Date Recorded Not on file documented as of this encounter Miscellaneous Notes Dialysis Note - Ernie Pompa MD - 04/21/2021 8:58 AM CST Date: Apr 21, 2021 Patient Name: Shaun Ocampo : 1945 Chart #: [id number] Sex: M This patient was personally seen [...] AM ) BP (sit): 113/62 AP(-) / FORMING FIXER: 176/155 Pulse: 78 Chairside data as of [...] 50 mg IVP 1X Week 04/12/2021 04/11/2022 PROJECT GEOLOGIST: Ernie Pompa MD LOCATION: [phone] SCHEDULE: M-W-F 2nd Shift EDW: kg. DIALYZER: [...] extra run and we discussed going to [place] tomorrow for UF only run and he [...] again today, may need extra run at [place] if can't get down over next week. 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 06/10: Doing well overall, no new complaints, [...] prescription. Vascular Access Assessment Type of access: [id number]/2019 Surgeon - Lary GARDNER Access working well [...] at goal. Intact PTH is above goal. Hospital Fellow will adjust binders and vitamin D per [...]
--- OUTSIDE RECORDS SUMMARY | 2021-11-18 12:36 | XMS_ITS | Encounter Summary ---
:1945 Author Organization [facility] Address [address] [place] [address] Care Team Providers Name Role Phone Unavailable Primary Care Provider Unavailable Encounter Details Date Type Department Care Team Description 04/14/2021 Treatment [facility] f Ernie Guzmán MD [address] [place] [address] [place], [place] [phone] (Wo rk) Social History Tobacco Use Types Packs/Day Years Used Date Smoking Tobacco: Unknown Comments: Smoking History Info:Patient n ot screened Sex Assigned at Date Recorded Not on file documented as of this encounter Miscellaneous Notes Dialysis Note - Ernie Pompa MD - 04/14/2021 10:26 AM CST Date: Apr 14, 2021 Patient Name: Shaun Ocampo : 1945 Chart #: [id number] Sex: M This patient was personally seen [...] AM ) BP (sit): 110/48 AP(-) / IT SUPPORT CONSULTANT: 166/145 Pulse: 77 Chairside data as of [...] mcg IVP Every 2 weeks 04/07/2021 04/06/2022 WIRE STOCKKEEPER: Ernie Pompa MD LOCATION: [phone] SCHEDULE: M-W- 2nd Shift ACCESS: EDW: kg. [...] extra run and we discussed going to [place] tomorrow for UF only run and he [...] again today, may need extra run at [place] if can't get down over next week. 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 06/10: Doing well overall, no new complaints, [...] to Urgent care -> ER in [place] yesterday,CT with R hydro but no obstructive [...] He had infiltration last week, dialyzed at [facility] on Sat and went well, access [...] (02/17/21) Vascular Access Assessment: Type of access: [id number]/2019 Surgeon - Lary GARDNER Access working well [...]
--- OUTSIDE RECORDS SUMMARY | 2021-11-18 12:36 | XMS_ITS | Encounter Summary ---
:1945 Author Organization [facility] Address [address] [place] [address] Care Team Providers Name Role Phone Unavailable Primary Care Provider Unavailable Encounter Details Date Type Department Care Team Description 06/09/2021 Treatment [facility] O f Ernie Guzmán MD [address] [place] [address] [place], [place] [phone] (Wo rk) Social History Tobacco Use Types Packs/Day Years Used Date Smoking Tobacco: Unknown Comments: Smoking History Info:Patient n ot screened Sex Assigned at Date Recorded Not on file documented as of this encounter Miscellaneous Notes Dialysis Note - Ernie Pompa MD - 06/09/2021 10:34 AM CDT Date: Jun 09, 2021 Patient Name: Shaun Ocampo : 1945 Chart #: [id number] Sex: M This patient was personally seen [...] AM ) BP (sit): 115/55 AP(-) / BARTENDER HELPER: 161/150 Pulse: 67 Chairside data as of [...] mcg IVP Every 2 weeks 06/09/2021 06/08/2022 MOLDER FEEDER: Ernie Pompa MD LOCATION: [phone] SCHEDULE: -- 2nd Shift ACCESS: EDW: kg. DIALYZER: HD DURATION: NEEDLE SIZE: ANTICOAG: BATH: QB: ml/min QD: ml/min Subjective Tolerating dialysis well. 06/09/21: Feels better today, had steroid injections in knees yesterday at [facility]. To do PT as well. He pulled muscle in his lower arm on L side last week getting into car, hurt a lot but is improving. Fluid gains continue to be high, [facility] not open on this week, says he will do his best withlimiting salt/fluid. HE does feel SOB with exertion with extra fluid on, no orthopnea. 05/26/21: Has SOB when >5 Kg over dry weight, extra run last week at [facility] helped. Trying his best with fluid restriction. [...] extra run and we discussed going to [facility] tomorrow for UF only run and he [...] again today, may need extra run at [facility] if can't get down over next week. 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 06/10: Doing well overall, no new complaints, [...] Went to Urgent care -> ER in [place] yesterday,CT with R hydro but no obstructive [...] (05/05/21) Vascular Access Assessment: Type of access: [id number]/2019 Surgeon - Lary GARDNER Access working well [...]
--- OUTSIDE RECORDS SUMMARY | 2021-11-18 12:36 | XMS_ITS | Encounter Summary ---
:1945 Author Organization [facility] Address [address] [place] [address] Care Team Providers Name Role Phone Unavailable Primary Care Provider Unavailable Encounter Details Date Type Department Care Team Description 04/28/2021 Orders [facility] O f Ernie Guzmán MD [address] [place] [address] [place], [place] [phone] (Wo rk) Social History Tobacco Use [...] Volume Laterality 04/28/2021 04/29/2021 12:1 6 PM STEAM PLANT OPERATOR Narrative [facility] - 04/29/2021 Unless otherwise specified, test(s) performed at: [facility], [address] [place] [address] EDGE SETTER: Alec Payan M.D. For any questions, please call customer service at FREQUENCY:OTHER Resulting Agency Comment Specimen source: Blood Ernie Pompa MD LAB BLOOD ORDERABLES Performing Organization Address City/State/ZIP Code Phon e Number [facility]PS [facility]RA [facility] documented in this encounter Visit Diagnoses Not on filedocumented in this encounter
--- OUTSIDE RECORDS SUMMARY | 2021-11-18 12:36 | XMS_ITS | Encounter Summary ---
:1945 Author Organization [facility] Address [address] [place] [address] Care Team Providers Name Role Phone Unavailable Primary Care Provider Unavailable Encounter Details Date Type Department Care Team Description 05/05/2021 Treatment [facility] f Ernie Guzmán MD [address] [place] [address] [place], [place] [phone] [phone] (Wo rk) Social History Tobacco Use Types Packs/Day Years Used Date Smoking Tobacco: Unknown Comments: Smoking History Info:Patient n ot screened Sex Assigned at Date Recorded Not on file documented as of this encounter Miscellaneous Notes Dialysis Note - Ernie Pompa MD - 05/05/2021 10:18 AM CST Date: May 05, 2021 Patient Name: Shaun Ocampo : 1945 Chart #: [id number] Sex: M This patient was personally seen [...] AM ) BP (sit): 110/50 AP(-) / CIGARETTE MACHINE FILLER: 174/144 Pulse: 73 Chairside data as of [...] mcg IVP Every 2 weeks 04/28/2021 04/27/2022 ENVIRONMENTAL SERVICES LEAD: Ernie Pompa MD LOCATION: [phone] SCHEDULE: M-W-F 2nd Shift ACCESS: EDW: kg. 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 06/10: Doing well overall, no new complaints, [...] Went to Urgent care -> ER in [place] yesterday,CT with R hydro but no obstructive [...] (03/24/21) Vascular Access Assessment: Type of access: [id number]/2019 Surgeon - Lary GARDNER Access working well [...]
--- OUTSIDE RECORDS SUMMARY | 2021-11-18 12:36 | XMS_ITS | Encounter Summary ---
:1945 Author Organization [facility] Address [address] [place] [address] Care Team Providers Name Role Phone Unavailable Primary Care Provider Unavailable Encounter Details Date Type Department Care Team Description 03/03/2021 [facility] Only [facility] O f Ernie Guzmán MD [address] [place] [address] [place], [place] [phone] (Wo rk) Social History Tobacco Use [...] / Volume Laterality 03/03/2021 03/04/2021 2:44 PM REGISTERED HEALTH NURSE Narrative APS SPECTRA [facility] - 03/05/2021 Unless otherwise specified, test(s) performed at: [facility], [address] [place] [address] RETAIL TRAINING MANAGER: Alec Payan M.D. For any questions, please call customer service at FREQUENCY:OTHER Resulting Agency Comment Specimen source: Serum Ernie Leither MD LAB BLOOD ORDERABLES Performing Organization Address City/[facility]/ZIP Code Phon e Number [facility]PS S[facility]RA [facility] (ABNORMAL) HEMATOLOGY (03/03/2021) Analysis Performed At Patho logist Time Signature Hemoglobin 10.2 (L) 14.0 - [facility]PS [facility]PECTRA 18.0 g/dL [facility] Hemoglobin x 3 30.6 (L) 42.0 - APS SPECTRA 54.0 % [facility] Specimen (Source) Anatomical Collection Method Collection Time Re ceived Time Location / / Volume Laterality 03/03/2021 03/04/2021 1:44 PM REGISTERED HEALTH NURSE Narrative [facility] - 03/04/2021 Unless otherwise specified, test(s) performed at: [facility], [address] [place] [address] RETAIL TRAINING MANAGER: Alec Payan M.D. For any questions, please call customer service at FREQUENCY:OTHER Resulting Agency Comment Specimen source: Blood Ernie Pompa MD LAB BLOOD ORDERABLES Performing Organization Address City/[facility] Phon e Number [facility] S[facility]RA [facility] documented in this encounter Visit Diagnoses Not on filedocumented in this encounter
--- OUTSIDE RECORDS SUMMARY | 2021-11-18 12:36 | XMS_ITS | Encounter Summary ---
:1945 Author Organization [facility] Address [address] [place] [address] Care Team Providers Name Role Phone Unavailable Primary Care Provider Unavailable Encounter Details Date Type Department Care Team Description 01/27/2021 [facility] O f Ernie Guzmán MD [phone] [place] [address] [place], [place] [phone] (Wo rk) Social History Tobacco Use [...] Volume Laterality 01/27/2021 01/28/2021 10:1 8 PM ESTATE TAX EXAMINER Narrative [facility] - 01/29/2021 Unless otherwise specified, test(s) performed at: [facility], [address] [place] [address] ULTRASOUND TECHNOLOGIST SONOGRAPHER: Alec Payan M.D. For any questions, please [...] Volume Laterality 01/27/2021 01/28/2021 10:4 1 PM ESTATE TAX EXAMINER Narrative [facility]PS [facility]RA [facility] - 01/29/2021 Unless otherwise specified, test(s) performed at: [facility], [address] [place] [address] ULTRASOUND TECHNOLOGIST SONOGRAPHER: Alec Payan M.D. For any questions, please call customer service at FREQUENCY:OTHER Resulting Agency Comment Specimen source: Serum Ernie Pompa MD LAB BLOOD ORDERABLES Performing Organization Address City/State/ZIP Code Phon e Number [facility] documented in this encounter Visit Diagnoses Not on filedocumented in this encounter
--- OUTSIDE RECORDS SUMMARY | 2021-11-18 12:36 | XMS_ITS | Encounter Summary ---
:1945 Author Organization [facility] Address [address] [place] [address] Care Team Providers Name Role Phone Unavailable Primary Care Provider Unavailable Encounter Details Date Type Department Care Team Description 05/17/2021 [facility] Only [facility] O f Ernie Guzmán MD [address] [place] [address] [place], [place] [phone] (Wo rk) Social History Tobacco Use [...] / Volume Laterality 05/17/2021 05/18/2021 1:48 PM SALES SECRETARY Narrative APS S[facility]RA [facility] - 05/18/2021 Unless otherwise specified, test(s) performed at: [facility], [address] [place] [address] PRECINCT I POLICE SERGEANT: Alec Payan M.D. For any questions, please [...] Volume Laterality 05/17/2021 05/18/2021 11:1 2 AM SALES SECRETARY Narrative [facility]PS SPECTRA [facility] - 05/18/2021 Unless otherwise specified, test(s) performed at: [facility], [address] [place] [address] PRECINCT I POLICE SERGEANT: Alec Payan M.D. For any questions, please call customer service at FREQUENCY:OTHER Resulting Agency Comment Specimen source: Serum Ernie Pompa MD LAB BLOOD ORDERABLES Performing Organization Address City/[facility]/ZIP Code Phon e Number [facility]PS SPECTRA [facility] documented in this encounter Visit Diagnoses Not on filedocumented in this encounter
--- OUTSIDE RECORDS SUMMARY | 2021-11-18 12:36 | XMS_ITS | Encounter Summary ---
:1945 Author Organization [facility] Address [address] [place] [address] [place] [address] Care Team Providers Name Role Phone Unavailable Primary Care Provider Unavailable Encounter Details Date Type Department Care Team Description 06/02/2021 [facility] Only [facility] O f Ernie Guzmán MD [address] [place] [address] [place], [place] [phone] (Wo rk) Social History Tobacco Use [...] 06/03/2021 Unless otherwise specified, test(s) performed at: [facility], [address] [place] [address] WELLNESS CONSULTANT: Alec Payan M.D. For any questions, please call customer service at FREQUENCY:OTHER Resulting Agency Comment Specimen source: Blood Ernie Pompa MD LAB BLOOD ORDERABLES Performing Organization Address City/State/ZIP Code Phon e Number [facility]PECTRA [facility] documented in this encounter Visit Diagnoses Not on filedocumented in this encounter
--- OUTSIDE RECORDS SUMMARY | 2021-11-18 12:36 | XMS_ITS | Encounter Summary ---
:1945 Author Organization [facility] Address [address] [place] [address] Care Team Providers Name Role Phone Unavailable Primary Care Provider Unavailable Encounter Details Date Type Department Care Team Description 04/07/2021 [facility] Only [facility] O f Ernie Guzmán MD [address] [place] [address] [place], [place] [phone] (Wo rk) Social History Tobacco Use [...] Volume Laterality 04/07/2021 04/09/2021 11:4 3 AM MASONRY INSTRUCTOR Narrative APS SPECTRA [facility] - 04/09/2021 Unless otherwise specified, test(s) performed at: [facility], [address] [place] [address] AUDIT TECH: Alec Payan M.D. For any questions, please call customer service at FREQUENCY:OTHER Resulting Agency Comment Specimen source: Blood Ernie Pompa MD LAB BLOOD ORDERABLES Performing Organization Address City/State/ZIP Code Phon e Number [facility]RA [facility] documented in this encounter Visit Diagnoses Not on filedocumented in this encounter
--- OUTSIDE RECORDS SUMMARY | 2021-11-18 12:36 | XMS_ITS | Encounter Summary ---
:1945 Author Organization [facility] Address [address] [place] [address] Care Team Providers Name Role Phone Unavailable Primary Care Provider Unavailable Encounter Details Date Type Department Care Team Description 02/03/2021 Treatment [facility] O Ernie Gómez MD [address] [place] [address] [place], [place] [phone] (Wo rk) Social History Tobacco Use Types Packs/Day Years Used Date Smoking Tobacco: Unknown Comments: Smoking History Info:Patient n ot screened Sex Assigned at Date Recorded Not on file documented as of this encounter Miscellaneous Notes Dialysis Note - Ernie Pompa MD - 02/03/2021 11:33 AM CST Date: Feb 03, 2021 Patient Name: Shaun Ocampo : 1945 Chart #: [id number] Sex: M This patient was personally seen [...] 2.0 mcg ORAL Every Treatment 12/30/2020 12/29/2021 RAPIER INSERTION LOOM FIXER: Ernie Pmopa MD LOCATION: [facility] [phone] SCHEDULE: M-W- 2nd Shift ACCESS: EDW: kg. 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 06/10: Doing well overall, no new complaints, [...] Went to Urgent care -> ER in [place] yesterday,CT with R hydro but no obstructive [...] without any issues and no cramping. 12/24: Shuan feels excellent and has no complaints. BP [...] (11/18/20) Vascular Access Assessment: Type of access: [id number] Surgeon - Lary GARDNER Access working well [...]
--- OUTSIDE RECORDS SUMMARY | 2021-11-18 12:36 | XMS_ITS | Encounter Summary ---
:1945 Author Organization [facility] Address [address] [place] [address] Care Team Providers Name Role Phone Unavailable Primary Care Provider Unavailable Encounter Details Date Type Department Care Team Description 04/21/2021 Orders Only [facility] O f Ernie Guzmán MD [phone] [place] [address] [place], [place] [phone] (Wo rk) Social History Tobacco Use [...] [facility]/ZIP Code Phon e Number KAMERON (ABNORMAL) Spectrae Chemistry (04/21/2021) athologist Signature PTH 1,441 (H) 16 - 80 APS SPECTRA pg/mL [facility] Specimen (Source) Anatomical Collection Method Collection Time Re ceived Time Location / / Volume Laterality 04/21/2021 04/22/2021 1:39 PM SPAR CAP BEVELER Narrative APS SPECTRA [facility] - 04/23/2021 Unless otherwise specified, test(s) performed at: [facility], [address] [place], [place] [id number] FLIGHT INSPECTOR: Alec Payan M.D. For any questions, please call customer service at FREQUENCY:MONTHLY Resulting Agency Comment Specimen source: Plasma Ernie Pompa MD LAB BLOOD ORDERABLES Performing Organization Address [facility] Phon e Number APS SPECTRA [facility] IMMUNO CHEMISTRY (04/21/2021) athologist [facility] Hep B Surface Negative Negative APS SPECTRA Ag [facility] Specimen (Source) Anatomical Collection Method Collection Time Re ceived Time Location / / Volume Laterality 04/21/2021 04/22/2021 3:00 PM SPAR CAP BEVELER Narrative APS SPECTRA [facility] - 04/22/2021 Unless otherwise specified, test(s) performed at: [facility], [address] [place] [address] FLIGHT INSPECTOR: Alec Payan M.D. For any questions, please call customer service at FREQUENCY:MONTHLY Resulting Agency Comment Specimen source: Serum Ernie Pompa MD LAB BLOOD ORDERABLES Performing Organization Address City/[facility]/ZIP [facility] Phon e Number [facility]PS SPECTRA [facility] HD KINETICS (04/21/2021) athologist Signature % Urea 72 65 - 80 % APS SPECTRA Reduction [facility] Specimen (Source) Anatomical Collection Method Collection Time Re ceived Time Location / / Volume Laterality 04/21/2021 04/22/2021 5:02 PM SPAR CAP BEVELER Resulting Agency Comment Specimen source: Plasma Ernie Pompa MD LAB BLOOD ORDERABLES Performing Organization Address City/State/ZIP Code Phon e Number [facility]PS [facility]RA [facility] POST CHEMISTRY (04/21/2021) P athologist Signature BUN Post 17 6 - 19 APS SPECTRA Dialysis mg/dL [facility] Specimen (Source) Anatomical Collection Method Collection Time Re ceived Time Location / / Volume Laterality 04/21/2021 04/22/2021 5:01 PM SPAR CAP BEVELER Narrative APS SPECTRA [facility] - 04/22/2021 Unless otherwise specified, test(s) performed at: [facility], [address] [place] [address] FLIGHT INSPECTOR: Alec Payan M.D. For any questions, [...] / Volume Laterality 04/21/2021 04/22/2021 3:00 PM SPAR CAP BEVELER Narrative APS SPECTRA [facility] - 04/22/2021 Unless otherwise specified, test(s) performed at: [facility], [address] [place] [address] FLIGHT INSPECTOR: Alec Payan M.D. For any questions, [...] / Volume Laterality 04/21/2021 04/22/2021 1:17 PM SPAR CAP BEVELER Narrative APS SPECTRA [facility] - 04/22/2021 Unless otherwise specified, test(s) performed at: [facility], [address] [place] [address] FLIGHT INSPECTOR: Alec Payan M.D. For any questions, please call customer service at FREQUENCY:MONTHLY Resulting Agency Comment Specimen source: Blood Ernie Pompa MD LAB BLOOD ORDERABLES Performing Organization Address City/State/ZIP Code Phon e Number [facility]PS [facility]RA [facility] documented in this encounter Visit Diagnoses Not on filedocumented in this encounter
--- OUTSIDE RECORDS SUMMARY | 2021-11-18 12:36 | XMS_ITS | Encounter Summary ---
:1945 Author Organization [facility] Address [address] [place] [address] Care Team Providers Name Role Phone Unavailable Primary Care Provider Unavailable Encounter Details Date Type Department Care Team Description 05/05/2021 [facility] Only [facility] O f Ernie Guzmán MD [address] [place] [address] [place], [place] [phone] (Wo rk) Social History Tobacco Use [...] / Volume Laterality 05/05/2021 05/06/2021 8:46 PM GILL NET STRINGER Narrative APS SPECTRA [facility] - 05/07/2021 Unless otherwise specified, test(s) performed at: [facility], [address] [place] [address] WASTEWATER TREATMENT PLANT SUPERVISOR: Alec Payan M.D. For any questions, please call customer service at FREQUENCY:OTHER Resulting Agency Comment Specimen source: Serum Ernie Pompa MD LAB BLOOD ORDERABLES Performing Organization Address City/[facility]/ZIP Code Phon e Number APS SPECTRA [facility] (ABNORMAL) HEMATOLOGY (05/05/2021) Analysis Performed At Patho logist Time Signature Hemoglobin 10.3 (L) 14.0 - APS SPECTRA 18.0 g/dL [facility] Hemoglobin x 3 30.9 (L) 42.0 - APS SPECTRA 54.0 % [facility] Specimen (Source) Anatomical Collection Method Collection Time Re ceived Time Location / / Volume Laterality 05/05/2021 05/06/2021 5:29 PM GILL NET STRINGER Narrative APS SPECTRA [facility] - 05/06/2021 Unless otherwise specified, test(s) performed at: [facility], [address] [place], [place] [id number] WASTEWATER TREATMENT PLANT SUPERVISOR: Alec Payan M.D. For any questions, please call customer service at FREQUENCY:OTHER Resulting Agency Comment Specimen source: Blood Ernie Pompa MD LAB BLOOD ORDERABLES Performing Organization Address [facility] Phon e Number APS SPECTRA [facility] (ABNORMAL) Spectrae Chemistry (05/05/2021) P athologist Signature PTH 1,457 (H) 16 - 80 APS SPECTRA pg/mL [facility] Specimen (Source) Anatomical Collection Method Collection Time Re ceived Time Location / / Volume Laterality 05/05/2021 05/06/2021 5:24 PM GILL NET STRINGER Narrative APS SPECTRA [facility] - 05/06/2021 Unless otherwise specified, test(s) performed at: [facility] [employer], [address] [place] [address] WASTEWATER TREATMENT PLANT SUPERVISOR: Alec Payan M.D. For any questions, please call customer service at FREQUENCY:OTHER Resulting Agency Comment Specimen source: Plasma Ernie Pompa MD LAB BLOOD ORDERABLES Performing Organization Address City/[facility] Phon e Number APS SPECTRA [facility] documented in this encounter Visit Diagnoses Not on filedocumented in this encounter
--- OUTSIDE RECORDS SUMMARY | 2021-11-18 12:36 | XMS_ITS | Encounter Summary ---
:1945 Author Organization [facility] Address [address] [place] [address] Care Team Providers Name Role Phone Unavailable Primary Care Provider Unavailable Encounter Details Date Type Department Care Team Description 05/19/2021 Orders Only [facility] O f Ernie Guzmán MD [address] [place] [address] [place], [place] [phone] (Wo rk) Social History Tobacco Use [...] Provider LAB BLOOD ORDERABLES Performing Organization Address [facility] Phon e Number KAMERON IMMUNO CHEMISTRY (05/19/2021) P athologist Signature Hep B Surface Negative Negative APS SPECTRA Ag [facility] Specimen (Source) Anatomical Collection Method Collection Time Re ceived Time Location / / Volume Laterality 05/19/2021 05/20/2021 3:10 PM SECONDARY SCHOOL TEACHER Narrative APS SPECTRA [facility] - 05/20/2021 Unless otherwise specified, test(s) performed at: [facility], [address] [place], [place] [id number] TRAFFIC SAFETY ADMINISTRATOR: Alec Payan M.D. For any questions, please call customer service at FREQUENCY:MONTHLY Resulting Agency Comment Specimen source: Serum Ernie Pompa MD LAB BLOOD ORDERABLES Performing Organization Address [facility] Phon e Number APS SPECTRA [facility] HD KINETICS (05/19/2021) P athologist Signature % Urea 69 65 - 80 % APS SPECTRA Reduction [facility] Specimen (Source) Anatomical Collection Method Collection Time Re ceived Time Location / / Volume Laterality 05/19/2021 05/20/2021 3:12 PM SECONDARY SCHOOL TEACHER Narrative APS SPECTRA [facility] - 05/20/2021 Unless otherwise specified, test(s) performed at: [facility], [address] [place] [address] TRAFFIC SAFETY ADMINISTRATOR: Alec Payan M.D. For any questions, please call customer service at FREQUENCY:MONTHLY Resulting Agency Comment Specimen source: Serum Ernie Pompa MD LAB BLOOD ORDERABLES Performing Organization Address [facility] Phon e Number APS SPECTRA [facility] [...] / Volume Laterality 05/19/2021 05/20/2021 3:10 PM SECONDARY SCHOOL TEACHER Narrative APS SPECTRA [facility] - 05/20/2021 Unless otherwise specified, test(s) performed at: [facility], [address] [place] [address] TRAFFIC SAFETY ADMINISTRATOR: Alec Payan M.D. For any questions, please [...] / Volume Laterality 05/19/2021 05/20/2021 2:08 PM SECONDARY SCHOOL TEACHER Narrative APS SPECTRA [facility] - 05/20/2021 Unless otherwise specified, test(s) performed at: [facility], [address] [place] [address] TRAFFIC SAFETY ADMINISTRATOR: Alec Payan M.D. For any questions, please [...] Volume Laterality 05/19/2021 05/20/2021 12:5 8 PM SECONDARY SCHOOL TEACHER Narrative APS SPECTRA [facility] - 05/20/2021 Unless otherwise specified, test(s) performed at: [facility], [address] [place] [address] TRAFFIC SAFETY ADMINISTRATOR: Alec Payan M.D. For any questions, please call customer service at FREQUENCY:MONTHLY Resulting Agency Comment Specimen source: Blood Ernie Pompa MD LAB BLOOD ORDERABLES Performing Organization Address City/State/ZIP Code Phon e Number APS SPECTRA [facility] documented in this encounter Visit Diagnoses Not on filedocumented in this encounter
--- OUTSIDE RECORDS SUMMARY | 2021-11-18 12:36 | XMS_ITS | Encounter Summary ---
:1945 Author Organization [facility] Address [address] [place] [address] Care Team Providers Name Role Phone Unavailable Primary Care Provider Unavailable Encounter Details Date Type Department Care Team Description 02/10/2021 Orders Only [facility] O f Ernie Guzmán MD [address] [place] [address] [place], [place] [phone] (Wo rk) Social History Tobacco Use [...] / Volume Laterality 02/10/2021 02/12/2021 2:38 PM PEST CONTROL CHEMICAL TECHNICIAN Narrative APS SPECTRA [facility] - 02/12/2021 Unless otherwise specified, test(s) performed at: [facility], [address] [place] [address] CHIEF MEDICAL OFFICER: Alec Payan M.D. For any questions, please call customer service at FREQUENCY:OTHER Resulting Agency Comment Specimen source: Blood Ernie Pompa MD LAB BLOOD ORDERABLES Performing Organization Address City/State/ZIP Code Phon e Number APS SPECTRA [facility] documented in this encounter Visit Diagnoses Not on filedocumented in this encounter
--- OUTSIDE RECORDS SUMMARY | 2021-11-18 12:36 | XMS_ITS | Encounter Summary ---
:1945 Author Organization [facility] Address [address] [place] [address] [address] [place] [address] Care Team Providers Name Role Phone Unavailable Primary Care Provider Unavailable Encounter Details Date Type Department Care Team Description 05/21/2021 Orders Only [facility] O f Ernie Guzmán MD [address] [place] [address] [place], [place] [phone] (Wo rk) Social History Tobacco Use [...] / Volume Laterality 05/21/2021 05/22/2021 1:14 PM GENERAL ASSEMBLER INSTALLER Resulting Agency Comment Specimen source: Serum Ernie Pompa MD LAB BLOOD ORDERABLES Performing Organization Address City/State/ZIP Code Phon e Number APS SPECTRA [facility] POST CHEMISTRY (05/21/2021) athologist Signature BUN Post 12 6 - 19 APS SPECTRA Dialysis mg/dL [facility] Specimen (Source) Anatomical Collection Method Collection Time Re ceived Time Location / / Volume Laterality 05/21/2021 05/22/2021 11:5 6 AM GENERAL ASSEMBLER INSTALLER Narrative APS SPECTRA [facility] - 05/22/2021 Unless otherwise specified, test(s) performed at: [facility], [address] [place] [address] ELECTRONIC ORGAN TECHNICIAN: Alec Payan M.D. For any questions, please call customer service at FREQUENCY:OTHER Resulting Agency Comment Specimen source: Plasma Ernie Pompa MD LAB BLOOD ORDERABLES Performing Organization Address City/[facility]/ZIP Code Phon e Number APS SPECTRA [facility] (ABNORMAL) Spectrae Chemistry (05/21/2021) athologist Signature Ferritin 640 (H) 22 - 322 APS SPECTRA ng/mL [facility] BUN 43 (H) 6 - 19 APS SPECTRA mg/dL [facility] Specimen (Source) Anatomical Collection Method Collection Time Re ceived Time Location / / Volume Laterality 05/21/2021 05/22/2021 1:14 PM GENERAL ASSEMBLER INSTALLER Narrative APS SPECTRA [facility] - 05/22/2021 Unless otherwise specified, test(s) performed at: [facility], [address] [place] [address] ELECTRONIC ORGAN TECHNICIAN: Alec Payan M.D. For any questions, please call customer service at FREQUENCY:OTHER Resulting Agency Comment Specimen source: Serum Ernie Pompa MD LAB BLOOD ORDERABLES Performing Organization Address City/State/ZIP Code Phon e Number APS SPECTRA [facility] documented in this encounter Visit Diagnoses Not on filedocumented in this encounter
--- OUTSIDE RECORDS SUMMARY | 2021-11-18 12:36 | XMS_ITS | Encounter Summary ---
:1945 Author Organization [facility] Address [address] [place] [address] Care Team Providers Name Role Phone Unavailable Primary Care Provider Unavailable Encounter Details Date Type Department Care Team Description 06/09/2021 Orders Only [facility] O f Ernie Guzmán MD [address] [place] [address] [place], [place] [phone] (Wo rk) Social History Tobacco Use [...] 06/10/2021 Unless otherwise specified, test(s) performed at: [facility], [address] [place] [address] LEACH RUNNER: Alec Payan M.D. For any questions, please call customer service at FREQUENCY:OTHER Resulting Agency Comment Specimen source: Blood Ernie Pompa MD LAB BLOOD ORDERABLES Performing Organization Address City/State/ZIP Code Phon e Number APS SPECTRA [facility] documented in this encounter Visit Diagnoses Not on filedocumented in this encounter
--- OUTSIDE RECORDS SUMMARY | 2021-11-18 12:36 | XMS_ITS | Encounter Summary ---
:1945 Author Organization [facility] Address [address] [place] [address] Care Team Providers Name Role Phone Unavailable Primary Care Provider Unavailable Encounter Details Date Type Department Care Team Description 03/24/2021 Treatment [facility] f Ernie Guzmán MD [address] [place] [address] [place], [place] [phone] [phone] (Wo rk) Social History Tobacco Use Types Packs/Day Years Used Date Smoking Tobacco: Unknown Comments: Smoking History Info:Patient n ot screened Sex Assigned at Date Recorded Not on file documented as of this encounter Miscellaneous Notes Dialysis Note - Ernie Pompa MD - 03/24/2021 9:04 AM CST Date: Mar 24, 2021 Patient Name: Shaun Ocampo : 1945 Chart #: [id number] Sex: M This patient was personally seen [...] AM ) BP (sit): 114/54 AP(-) / MACHINE ROOM OPERATOR: 170/152 Pulse: 69 Chairside data as of [...] 0.25 mcg ORAL Every Treatment 03/08/2021 03/07/2022 LIFE SCIENCE TECHNICAL OFFICER: Ernie Pompa MD LOCATION: [phone] SCHEDULE: M-W-F 2nd Shift EDW: kg. DIALYZER: HD DURATION: NEEDLE SIZE: ANTICOAG: BATH: QB: ml/min QD: ml/min Subjective Tolerating dialysis well. 03/24/21: Shuan feels well. He had extra run prior [...] extra run and we discussed going to [place] tomorrow for UF only run and he [...] again today, may need extra run at [place] if can't get down over next week. 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 06/10: Doing well overall, no new complaints, [...] Went to Urgent care -> ER in [place] yesterday,CT with R hydro but no obstructive [...] prescription. Vascular Access Assessment Type of access: [email or web address] Surgeon Annita GARDNER Access working well Anemia [...] above goal. Intact PTH is at goal. Resp Ther will adjust binders and vitamin D per [...]
--- OUTSIDE RECORDS SUMMARY | 2021-11-18 12:36 | XMS_ITS | Encounter Summary ---
:1945 Author Organization [facility] Address [address] [place] [address] Care Team Providers Name Role Phone Unavailable Primary Care Provider Unavailable Encounter Details Date Type Department Care Team Description 03/24/2021 Orders Only [facility] O f Ernie Guzmán MD [phone] [place] [address] [place], [place] [phone] (Wo rk) Social History Tobacco Use [...] and its performa nce characteristics determined by [email or web address]. It has not been cleared or approved by the FDA. The laboratory is regulated under CLIA a s qualified to perform high complexity testing. This test is used fo r clinical purposes. It should not be regarded as investigational or fo r research. Specimen (Source) Anatomical Collection Method Collection Time Re ceived Time Location / / Volume Laterality 03/24/2021 03/26/2021 11:3 3 AM HOME SUPERVISOR Narrative APS SPECTRA [facility] - 03/29/2021 Unless otherwise specified, test(s) performed at: [facility], [address] [place] [address] COUNTER SUPPLY WORKER: Alec Payan M.D. For any questions, [...] above test result was obtained using [employer] Owned itaur XP chemiluminescent method. Results obtaine d with different assay methods or kits cannot be used interchangeably. Specimen (Source) Anatomical Collection Method Collection Time Re ceived Time Location / / Volume Laterality 03/24/2021 03/26/2021 12:2 9 PM HOME SUPERVISOR Resulting Agency Comment Specimen source: Serum Ernie Pompa MD LAB BLOOD ORDERABLES Performing Organization Address [facility] Code [...] LAB BLOOD ORDERABLES Performing Organization Address [facility] Phon e Number [facility] SPECIAL CHEMISTRY (03/24/2021) P athologist Signature Vitamin D, 38.3 30.0 - APS SPECTRA 25-OH, Total 100.0 [facility] ng/mL Comment: Vitamin D Status Classification: Deficiency ? <10.0 ng/mL Insufficiency ?10.0-30.0 ng/mL Sufficiency ?30.0-100.0 ng/mL Toxicity ? >100.0 ng/mL Specimen (Source) Anatomical Collection Method Collection Time Re ceived Time Location / / Volume Laterality 03/24/2021 03/26/2021 12:2 9 PM HOME SUPERVISOR Narrative [facility]PS [facility] - 03/27/2021 Unless otherwise specified, test(s) performed at: [facility], [address] [place] [address] COUNTER SUPPLY WORKER: Alec Payan M.D. For any questions, please call customer service at FREQUENCY:MONTHLY Resulting Agency Comment Specimen source: Serum Ernie Pompa MD LAB BLOOD BANK TEST ORDERABL ES Performing Organization Address City/[facility] Phon e Number APS SPECTRA [facility] (ABNORMAL) Spectrae Chemistry (03/24/2021) P athologist Signature PTH 977 (H) 16 - 80 APS [facility]PECTRA pg/mL [facility] Specimen (Source) Anatomical Collection Method Collection Time Re ceived Time Location / / Volume Laterality 03/24/2021 03/26/2021 11:4 0 AM HOME SUPERVISOR Narrative [facility]PS SPECTRA [facility] - 03/26/2021 Unless otherwise specified, test(s) performed at: [facility], [address] [place] [address] COUNTER SUPPLY WORKER: Alec Payan M.D. For any questions, please call customer service at FREQUENCY:MONTHLY Resulting Agency Comment Specimen source: Plasma Ernie Pompa MD LAB BLOOD ORDERABLES Performing Organization Address [facility] Phon e Number [facility] HD KINETICS (03/24/2021) P athologist Signature % Urea 75 65 - 80 % APS SPECTRA Reduction [facility] Specimen (Source) Anatomical Collection Method Collection Time Re ceived Time Location / / Volume Laterality 03/24/2021 03/26/2021 2:17 PM HOME SUPERVISOR Resulting Agency Comment Specimen source: Plasma Ernie Pompa MD LAB BLOOD ORDERABLES Performing Organization Address [facility] Code Phon e Number [facility]PS S[facility]RA [facility] POST CHEMISTRY (03/24/2021) P athologist Signature BUN Post 16 6 - 19 APS SPECTRA Dialysis mg/dL [facility] Specimen (Source) Anatomical Collection Method Collection Time Re ceived Time Location / / Volume Laterality 03/24/2021 03/26/2021 2:15 PM HOME SUPERVISOR Narrative APS SPECTRA [facility] - 03/26/2021 Unless otherwise specified, test(s) performed at: [facility], [address] [place] [address] COUNTER SUPPLY WORKER: Alec Payan M.D. For any questions, please call customer service at FREQUENCY:MONTHLY Resulting Agency Comment Specimen source: Plasma Ernie Pompa MD LAB BLOOD ORDERABLES Performing Organization Address [facility] Phon e Number APS SPECTRA [facility] (ABNORMAL) Spectrae Chemistry (03/24/2021) [facility] gist Method Time Signature BUN 63 (H) [...] Volume Laterality 03/24/2021 03/26/2021 12:2 9 PM HOME SUPERVISOR Narrative APS SPECTRA [facility] - 03/28/2021 Unless otherwise specified, test(s) performed at: [facility], [address] [place] [address] COUNTER SUPPLY WORKER: Alec Payan M.D. For any questions, [...] Volume Laterality 03/24/2021 03/26/2021 11:5 3 AM HOME SUPERVISOR Narrative APS SPECTRA [facility] - 03/26/2021 Unless otherwise specified, test(s) performed at: [facility], [address] [place] [address] COUNTER SUPPLY WORKER: Alec Payan M.D. For any questions, please call customer service at FREQUENCY:MONTHLY Resulting Agency Comment Specimen source: Blood Ernie Pompa MD LAB BLOOD ORDERABLES Performing Organization Address City/[facility]/ZIP [facility] Phon e Number [facility]PS SPECTRA [facility] documented in this encounter Visit Diagnoses Not on filedocumented in this encounter
--- OUTSIDE RECORDS SUMMARY | 2021-11-18 12:36 | XMS_ITS | Encounter Summary ---
:1945 Author Organization [facility] Address [address] [place] [address] Care Team Providers Name Role Phone Unavailable Primary Care Provider Unavailable Encounter Details Date Type Department Care Team Description 04/14/2021 Orders Only [facility] f Ernie Guzmán MD [phone] [place] [address] [place], [place] [phone] (Wo rk) Social History Tobacco Use [...] Volume Laterality 04/14/2021 04/15/2021 10:0 0 AM PAIN MANAGEMENT NURSE Narrative APS SPECTRA [facility] - 04/15/2021 Unless otherwise specified, test(s) performed at: [facility], [address] [place] [address] RIVETER AUTOMOBILE BRAKES: Alec Payan M.D. For any questions, please call customer service at FREQUENCY:OTHER Resulting Agency Comment Specimen source: Blood Ernie Pompa MD LAB BLOOD ORDERABLES Performing Organization Address City/State/ZIP Code Phon e Number [facility]PS SPECTRA [facility] documented in this encounter Visit Diagnoses Not on filedocumented in this encounter
--- OUTSIDE RECORDS SUMMARY | 2021-11-18 12:36 | XMS_ITS | Encounter Summary ---
:1945 Author Organization [facility] Address [address] [place] [address] Care Team Providers Name Role Phone Unavailable Primary Care Provider Unavailable Encounter Details Date Type Department Care Team Description 03/17/2021 Orders Only [facility] f Ernie Guzmán MD [phone] [place] [address] [place], [place] [phone] (Wo rk) Social History Tobacco Use [...] / Volume Laterality 03/17/2021 03/18/2021 9:32 AM HEADLINER INSTALLER Narrative APS SPECTRA [facility] - 03/18/2021 Unless otherwise specified, test(s) performed at: [facility], [address] [place] [address] FAST FOOD SERVER: Alec Payan M.D. For any questions, please call customer service at FREQUENCY:OTHER Resulting Agency Comment Specimen source: Blood Ernie Pompa MD LAB BLOOD ORDERABLES Performing Organization Address City/State/ZIP Code Phon e Number [facility]PS SPECTRA [facility] documented in this encounter Visit Diagnoses Not on filedocumented in this encounter
--- OUTSIDE RECORDS SUMMARY | 2021-11-18 12:36 | XMS_ITS | Encounter Summary ---
:1945 Author Organization [facility] Address [address] [place] [address] Care Team Providers Name Role Phone Unavailable Primary Care Provider Unavailable Encounter Details Date Type Department Care Team Description 03/10/2021 Treatment [facility] O Ernie Gómez MD [address] [place] [address] [place], [place] [phone] [phone] (Wo rk) Social History Tobacco Use Types Packs/Day Years Used Date Smoking Tobacco: Unknown Comments: Smoking History Info:Patient n ot screened Sex Assigned at Date Recorded Not on file documented as of this encounter Miscellaneous Notes Dialysis Note - Ernie Pompa MD - 03/10/2021 9:40 AM CST Date: Mar 10, 2021 Patient Name: Shaun Ocampo : 1945 Chart #: [id number] Sex: M This patient was personally seen [...] AM ) BP (sit): 116/55 AP(-) / WARE TESTER: 171/146 Pulse: 70 Chairside data as of [...] 0.25 mcg ORAL Every Treatment 03/08/2021 03/07/2022 GENERAL CLEANER: Ernie Pompa MD LOCATION: [phone] SCHEDULE: -W-F 2nd Shift ACCESS: EDW: kg. DIALYZER: HD DURATION: NEEDLE SIZE: ANTICOAG: BATH: QB: ml/min QD: ml/min Subjective Tolerating dialysis well. 03/10/21: He has been marching in place and increasing duration to try and gain endurance, feels this is helping. Fluid gains continue to be high, no chance of reaching EDW this week without an extra run and we discussed going to [place] tomorrow for UF only run and he [...] again today, may need extra run at [place] if can't get down over next week. 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 06/10: Doing well overall, no new complaints, [...] Went to Urgent care -> ER in [place] yesterday,CT with R hydro but no obstructive [...] (12/23/20) Vascular Access Assessment: Type of access: [id number] Surgeon - Lary GARDNER Access working well [...]
--- OUTSIDE RECORDS SUMMARY | 2021-11-18 12:36 | XMS_ITS | Encounter Summary ---
:1945 Author Organization [facility] Address [address] [place] [address] Care Team Providers Name Role Phone Unavailable Primary Care Provider Unavailable Encounter Details Date Type Department Care Team Description 03/31/2021 Orders Only [facility] O f Ernie Guzmán MD [address] [place] [address] [place], [place] [phone] (Wo rk) Social History Tobacco Use [...] Volume Laterality 03/31/2021 04/01/2021 10:3 5 PM RN PERIOPERATIVE Narrative APS SPECTRA [facility] - 04/02/2021 Unless otherwise specified, test(s) performed at: [facility], [address] [place] [address] DUE DILIGENCE COORDINATOR: Alec Payan M.D. For any questions, please call customer service at FREQUENCY:OTHER Resulting Agency Comment Specimen source: Serum Ernie Pompa MD LAB BLOOD ORDERABLES Performing Organization Address City/[facility]/ZIP Code Phon e Number APS SPECTRA [facility] (ABNORMAL) Spectrae Chemistry (03/31/2021) P athologist Signature PTH 1,309 (H) 16 - 80 APS SPECTRA pg/mL [facility] Specimen (Source) Anatomical Collection Method Collection Time Re ceived Time Location / / Volume Laterality 03/31/2021 04/01/2021 4:18 PM RN PERIOPERATIVE Narrative APS SPECTRA [facility] - 04/02/2021 Unless otherwise specified, test(s) performed at: [facility], [address] [place], [place] [id number] DUE DILIGENCE COORDINATOR: Alec Payan M.D. For any questions, please call customer service at FREQUENCY:OTHER Resulting Agency Comment Specimen source: Plasma Ernie Pompa MD LAB BLOOD ORDERABLES Performing Organization Address [facility] Phon e Number APS SPECTRA [facility] (ABNORMAL) HEMATOLOGY (03/31/2021) Analysis Performed At Patho logist Time Signature Hemoglobin 11.0 (L) 14.0 - APS SPECTRA 18.0 g/dL [facility] Hemoglobin x 3 33.0 (L) 42.0 - APS SPECTRA 54.0 % [facility] Specimen (Source) Anatomical Collection Method Collection Time Re ceived Time Location / / Volume Laterality 03/31/2021 04/01/2021 3:40 PM RN PERIOPERATIVE Narrative APS SPECTRA [facility] - 04/02/2021 Unless otherwise specified, test(s) performed at: [facility], [address] [place] [address] DUE DILIGENCE COORDINATOR: Alec Payan M.D. For any questions, please call customer service at FREQUENCY:OTHER Resulting Agency Comment Specimen source: Blood Ernie Pompa MD LAB BLOOD ORDERABLES Performing Organization Address City/[facility] Phon e Number APS SPECTRA [facility] documented in this encounter Visit Diagnoses Not on filedocumented in this encounter
--- OUTSIDE RECORDS SUMMARY | 2021-11-18 12:36 | XMS_ITS | Encounter Summary ---
:1945 Author Organization [facility] Address [address] [place] [address] Care Team Providers Name Role Phone Unavailable Primary Care Provider Unavailable Encounter Details Date Type Department Care Team Description 05/26/2021 Treatment [facility] O f Ernie Guzmán MD [address] [place] [address] [place], [place] [phone] [phone] (Wo rk) Social History Tobacco Use Types Packs/Day Years Used Date Smoking Tobacco: Unknown Comments: Smoking History Info:Patient n ot screened Sex Assigned at Date Recorded Not on file documented as of this encounter Miscellaneous Notes Dialysis Note - Ernie Pompa MD - 05/26/2021 10:14 AM CST Date: May 26, 2021 Patient Name: Shaun Ocampo : 1945 Chart #: [id number] Sex: M This patient was personally seen [...] AM ) BP (sit): 117/59 AP(-) / DESK MANAGER: 176/154 Pulse: 78 Chairside data as of [...] mcg IVP Every 2 weeks 05/26/2021 05/25/2022 DRAIN LAYER: Ernie Pompa MD LOCATION: [facility] [phone] SCHEDULE: -- 2nd Shift EDW: kg. DIALYZER: HD DURATION: NEEDLE SIZE: ANTICOAG: BATH: QB: ml/min QD: ml/min Subjective Tolerating dialysis well. 05/26/21: Has SOB when >5 Kg over dry weight, extra run last week at [place] helped. Trying his best with fluid restriction. [...] well. He had extra run [facility] and ran [facility] that week an got [...] extra run and we discussed going to [place] tomorrow for UF only run and he [...] again today, may need extra run at [place] if can't get down over next week. [...] for ureteral ?tumor early next month in [place]. 06/10: Doing well overall, no new complaints, [...] Went to Urgent care -> ER in [place] yesterday,CT with R hydro but no obstructive [...] He had infiltration last week, dialyzed at [facility] on Sat and went well, access ok [...] prescription. Vascular Access Assessment Type of access: [id number]/2019 Surgeon - Lary KUMARW Access working well [...] at goal. Intact PTH is above goal. Reel And Rewinder Operator will adjust binders and vitamin D [...] as tolerated, may need extra run at [place] again if can't achieve dry weight Continue [...]
--- OUTSIDE RECORDS SUMMARY | 2021-11-18 12:36 | XMS_ITS | Encounter Summary ---
:1945 Author Organization [facility] Address [address] [place] [address] Care Team Providers Name Role Phone Unavailable Primary Care Provider Unavailable Encounter Details Date Type Department Care Team Description 02/17/2021 Orders Only [facility] O f Ernie Guzmán MD [address] [place] [address] [place], [place] [phone] (Wo rk) Social History Tobacco Use [...] / Volume Laterality 02/17/2021 02/18/2021 4:14 PM CUSTODIAL LABORER Resulting Agency Comment Specimen source: Serum Ernie Pompa MD LAB BLOOD ORDERABLES Performing Organization Address City/[facility]/ZIP Code Phon e Number APS SPECTRA [facility] POST CHEMISTRY (02/17/2021) P athologist Signature BUN Post 13 6 - 19 APS SPECTRA Dialysis mg/dL [facility] Specimen (Source) Anatomical Collection Method Collection Time Re ceived Time Location / / Volume Laterality 02/17/2021 02/18/2021 4:00 PM CUSTODIAL LABORER Narrative APS SPECTRA [facility] - 02/19/2021 Unless otherwise specified, test(s) performed at: [facility], [address] [place] [address] LENS MOLD SETTER: Alec Payan M.D. For any questions, please call customer service at FREQUENCY:MONTHLY Resulting Agency Comment Specimen source: Plasma Ernie Pompa MD LAB BLOOD ORDERABLES Performing Organization Address City/[facility] Code Phon e Number APS SPECTRA [facility] IMMUNO CHEMISTRY (02/17/2021) P athologist Signature Hep B Surface Negative Negative APS SPECTRA Ag [facility] Specimen (Source) Anatomical Collection Method Collection Time Re ceived Time Location / / Volume Laterality 02/17/2021 02/18/2021 4:08 PM CUSTODIAL LABORER Narrative APS SPECTRA [facility] - 02/18/2021 Unless otherwise specified, test(s) performed at: [facility], [address] [place] [address] LENS MOLD SETTER: Alec Payan M.D. For any questions, please call customer service at FREQUENCY:MONTHLY Resulting Agency Comment Specimen source: Serum Ernie Pompa MD LAB BLOOD ORDERABLES Performing Organization Address City/State/ZIP Code Phon e Number APS SPECTRA [facility] (ABNORMAL) Spectrae Chemistry (02/17/2021) [facility] Method Time Signature BUN 46 (H) [...] / Volume Laterality 02/17/2021 02/18/2021 4:08 PM CUSTODIAL LABORER Narrative APS SPECTRA [facility] - 02/18/2021 Unless otherwise specified, test(s) performed at: [facility], [address] [place] [address] LENS MOLD SETTER: Alec Payan M.D. For any questions, please call customer service at FREQUENCY:MONTHLY Resulting Agency Comment Specimen source: Serum Ernie Pompa MD LAB BLOOD ORDERABLES Performing Organization Address City/[facility] Code Phon e Number APS [...] / Volume Laterality 02/17/2021 02/18/2021 9:53 AM CUSTODIAL LABORER Narrative APS SPECTRA [facility] - 02/18/2021 Unless otherwise specified, test(s) performed at: [facility], [address] [place] [address] LENS MOLD SETTER: Alec Payan M.D. For any questions, please call customer service at FREQUENCY:MONTHLY Resulting Agency Comment Specimen source: Blood Ernie Pompa MD LAB BLOOD ORDERABLES Performing Organization Address City/[facility]/ZIP [facility] Phon e Number APS SPECTRA [facility] (ABNORMAL) Spectrae Chemistry (02/17/2021) P athologist Signature PTH 546 (H) 16 - 80 APS SPECTRA pg/mL [facility] Specimen (Source) Anatomical Collection Method Collection Time Re ceived Time Location / / Volume Laterality 02/17/2021 02/18/2021 10:3 2 AM CUSTODIAL LABORER Narrative APS SPECTRA [facility] - 02/18/2021 Unless otherwise specified, test(s) performed at: [facility], [address] [place] [address] LENS MOLD SETTER: Alec Payan M.D. For any questions, please call customer service at FREQUENCY:MONTHLY Resulting Agency Comment Specimen source: Plasma Ernie Pompa MD LAB BLOOD ORDERABLES Performing Organization Address City/State/ZIP Code Phon e Number APS SPECTRA [facility] documented in this encounter Visit Diagnoses Not on filedocumented in this encounter
--- OUTSIDE RECORDS SUMMARY | 2021-11-18 12:36 | XMS_ITS | Encounter Summary ---
:1945 Author Organization [facility] Address [address] [place] [address] Care Team Providers Name Role Phone Unavailable Primary Care Provider Unavailable Encounter Details Date Type Department Care Team Description 03/10/2021 Orders Only [facility] O f Ernie Guzmán MD [phone] [place] [address] [place], [place] [phone] (Wo rk) Social History Tobacco Use [...] Volume Laterality 03/10/2021 03/11/2021 10:5 0 AM RN STARS Narrative APS SPECTRA [facility] - 03/11/2021 Unless otherwise specified, test(s) performed at: [facility], [address] [place] [address] DELIVERY DRIVER ASSISTANT: Alec Payan M.D. For any questions, please call customer service at FREQUENCY:OTHER Resulting Agency Comment Specimen source: Blood Ernie Pompa MD LAB BLOOD ORDERABLES Performing Organization Address City/State/ZIP Code Phon e Number APS SPECTRA [facility] documented in this encounter Visit Diagnoses Not on filedocumented in this encounter
--- OUTSIDE RECORDS SUMMARY | 2021-11-18 12:36 | XMS_ITS | Encounter Summary ---
:1945 Author Organization [facility] Address [address] [place] [address] Care Team Providers Name Role Phone Unavailable Primary Care Provider Unavailable Encounter Details Date Type Department Care Team Description 01/20/2021 Orders Only [facility] O f Ernie Guzmán MD [address] [place] [address] [place], [place] [phone] (Wo rk) Social History Tobacco Use [...] 01/22/2021 Unless otherwise specified, test(s) performed at: [facility], [address] [place] [address] DECK MECHANIC: Alec Payan M.D. For any questions, [...] 01/22/2021 Unless otherwise specified, test(s) performed at: [facility], [address] [place] [address] DECK MECHANIC: Alec Payan M.D. For any questions, please call customer service at FREQUENCY:MONTHLY Resulting Agency Comment Specimen source: Serum Ernie Pompa MD LAB BLOOD ORDERABLES Performing Organization Address City/[facility] Phon e Number APS S[facility]RA [facility] IMMUNO CHEMISTRY (01/20/2021) P athologist Signature Hep B Surface Negative Negative APS SPECTRA Ag [facility] Specimen (Source) Anatomical Collection Method Collection Time Re ceived Time Location / / Volume Laterality 01/20/2021 01/21/2021 8:41 PM CDT Narrative [facility] - 01/21/2021 Unless otherwise specified, test(s) performed at: [facility], [address] [place] [address] DECK MECHANIC: Alec Payan M.D. For any questions, please call customer service at FREQUENCY:MONTHLY Resulting Agency Comment Specimen source: Serum Ernie Pompa MD LAB BLOOD ORDERABLES Performing Organization Address City/[facility] Phon e Number [facility]PS [facility] POST CHEMISTRY (01/20/2021) P athologist Signature BUN Post 11 6 - 19 [facility] Dialysis mg/dL [facility] Specimen (Source) Anatomical Collection Method Collection Time Re ceived Time Location / / Volume Laterality 01/20/2021 01/21/2021 10:5 1 AM CDT Narrative [facility] - 01/21/2021 Unless otherwise specified, test(s) performed at: [facility], [address] [place] [address] DECK MECHANIC: Alec Payan M.D. For any questions, [...] 01/21/2021 Unless otherwise specified, test(s) performed at: [facility], [address] [place] [address] DECK MECHANIC: Alec Payan M.D. For any questions, [...] 01/21/2021 Unless otherwise specified, test(s) performed at: [facility], [address] [place] [address] DECK MECHANIC: Alec Payan M.D. For any questions, please call customer service at FREQUENCY:MONTHLY Resulting Agency Comment Specimen source: Plasma Ernie Pompa MD LAB BLOOD ORDERABLES Performing Organization Address City/State/ZIP Code Phon e Number [facility]PS S[facility] documented in this encounter Visit Diagnoses Not on filedocumented in this encounter
--- OUTSIDE RECORDS SUMMARY | 2021-11-18 12:36 | XMS_ITS | Encounter Summary ---
:1945 Author Organization [facility] Address [address] [place] [address] Care Team Providers Name Role Phone Unavailable Primary Care Provider Unavailable Encounter Details Date Type Department Care Team Description 05/26/2021 Orders Only [facility] O f Ernie Guzmán MD [address] [place] [address] [place], [place] [phone] (Wo rk) Social History Tobacco Use [...] / Volume Laterality 05/26/2021 05/27/2021 6:19 PM OUTSIDE PLANT CABLE ENGINEER Narrative [facility] - 05/28/2021 Unless otherwise specified, test(s) performed at: [facility], [address] [place], [place] [id number] PLACEMENT SECRETARY: Alec Payan M.D. For any questions, please call customer service at FREQUENCY:OTHER Resulting Agency Comment Specimen source: Serum Ernie Pompa MD LAB BLOOD ORDERABLES Performing Organization Address City/[facility]/ZIP Code Phon e Number APS SPECTRA [facility] (ABNORMAL) Spectrae Chemistry (05/26/2021) P athologist Signature PTH 1,356 (H) 16 - 80 A[facility]RA pg/mL [facility] Specimen (Source) Anatomical Collection Method Collection Time Re ceived Time Location / / Volume Laterality 05/26/2021 05/27/2021 10:2 3 AM OUTSIDE PLANT CABLE ENGINEER Narrative [facility] - 05/27/2021 Unless otherwise specified, test(s) performed at: [facility], [address] [place], [place] [id number] PLACEMENT SECRETARY: Alec Payan M.D. For any questions, please call customer service at FREQUENCY:OTHER Resulting Agency Comment Specimen source: Plasma Ernie Pompa MD LAB BLOOD ORDERABLES Performing Organization Address City/[facility] Code Phon [...] Volume Laterality 05/26/2021 05/27/2021 10:1 9 AM OUTSIDE PLANT CABLE ENGINEER Narrative [facility]PS S[facility]RA [facility] - 05/27/2021 Unless otherwise specified, test(s) performed at: [facility], [address] [place], [place] [phone] PLACEMENT SECRETARY: Alec Payan M.D. For any questions, please call customer service at FREQUENCY:OTHER Resulting Agency Comment Specimen source: Blood Ernie Pompa MD LAB BLOOD ORDERABLES Performing Organization Address City/State/ZIP Code Phon e Number [facility]PS S[facility]RA [facility] documented in this encounter Visit Diagnoses Not on filedocumented in this encounter
--- OUTSIDE RECORDS SUMMARY | 2021-11-18 12:36 | XMS_ITS | Encounter Summary ---
:1945 Author Organization [facility] Address [address] [place] [address] Care Team Providers Name Role Phone Unavailable Primary Care Provider Unavailable Encounter Details Date Type Department Care Team Description 05/12/2021 Orders Only [facility] O f Ernie Guzmán MD [address] [place] [address] [place], [place] [phone] (Wo rk) Social History Tobacco Use [...] / Volume Laterality 05/12/2021 05/13/2021 1:22 PM SECRETARIAL STENOGRAPHER Narrative [facility]PS [facility]RA [facility] - 05/13/2021 Unless otherwise specified, test(s) performed at: [facility], [address] [place] [address] BUSINESS LAW TEACHER: Alec Payan M.D. For any questions, please call customer service at FREQUENCY:OTHER Resulting Agency Comment Specimen source: Blood Ernie Pompa MD LAB BLOOD ORDERABLES Performing Organization Address City/State/ZIP Code Phon e Number [facility]PS SPECTRA [facility] documented in this encounter Visit Diagnoses Not on filedocumented in this encounter
--- OUTSIDE RECORDS SUMMARY | 2021-11-18 12:37 | XMS_ITS | Encounter Summary ---
:1945 Author Organization [facility] Address [address] [place] [address] Care Team Providers Name Role Phone Unavailable Primary Care Provider Unavailable Encounter Details Date Type Department Care Team Description 09/23/2020 Treatment [facility] f Ernie Guzmán MD [address] [place] [address] [place], [place] [id number] [phone] (Wo rk) Social History Tobacco Use Types Packs/Day Years Used Date Smoking Tobacco: Unknown Comments: Smoking History Info:Patient n ot screened Sex Assigned at Date Recorded Not on file documented as of this encounter Miscellaneous Notes Dialysis Note - Ernie Pmopa MD - 09/23/2020 10:44 AM CDT Date: Sep 23, 2020 Patient Name: Shaun Ocampo : 1945 Chart #: [id number] Sex: M This patient was personally seen [...] AM ) BP (sit): 103/52 AP(-) / DIGITAL PRODUCTION ARTIST: 235/188 Pulse: 72 Chairside data as of [...] Every 2 weeks During Dialysis 09/16/2020 09/15/2021 WREATH AND GARLAND MAKER HAND: Ernie Pompa MD LOCATION: [phone] SCHEDULE: Aravind-- 2nd Shift EDW: kg. DIALYZER: [...] for ureteral ?tumor early next month in [place]. 06/10: Doing well overall, no new complaints, [...] Went to Urgent care -> ER in [place] yesterday,CT with R hydro but no obstructive [...] prescription. Vascular Access Assessment Type of access: [id number]/2019 Surgeon - Lary GARDNER Access working well [...] at goal. Intact PTH is above goal. Stitch Cleaner will adjust binders and vitamin D [...]
--- OUTSIDE RECORDS SUMMARY | 2021-11-18 12:37 | XMS_ITS | Encounter Summary ---
:1945 Author Organization [facility] Address [address] [place] [address] Care Team Providers Name Role Phone Unavailable Primary Care Provider Unavailable Encounter Details Date Type Department Care Team Description 12/30/2020 Orders Only [facility] O f Ernie Guzmán MD [phone] [place] [address] [place], [place] [phone] (Wo rk) Social History Tobacco Use [...] 12/31/2020 Unless otherwise specified, test(s) performed at: [facility], [address] [place] [address] FOURDRINIER MACHINE TENDER: Alec Payan M.D. For any questions, please call customer service at FREQUENCY:OTHER Resulting Agency Comment Specimen source: Blood Ernie Pompa MD LAB BLOOD ORDERABLES Performing Organization Address City/State/ZIP Code Phon e Number [facility]PS SPECTRA [facility] documented in this encounter Visit Diagnoses Not on filedocumented in this encounter
--- OUTSIDE RECORDS SUMMARY | 2021-11-18 12:37 | XMS_ITS | Encounter Summary ---
:1945 Author Organization [facility] Address [address] [place] [address] Care Team Providers Name Role Phone Unavailable Primary Care Provider Unavailable Encounter Details Date Type Department Care Team Description 09/23/2020 Orders Only [facility] O f Ernie Guzmán MD [address] [place] [address] [place], [place] [phone] (Wo rk) Social History Tobacco Use [...] 09/24/2020 Unless otherwise specified, test(s) performed at: [facility], [address] [place] [address] ASSISTANT MANAGER: Alec Payan M.D. For any questions, please call customer service at FREQUENCY:MONTHLY Resulting Agency Comment Specimen source: Plasma Ernie Pompa MD LAB BLOOD ORDERABLES Performing Organization Address City/[facility]/ZIP Code Phon e Number APS [...] 09/24/2020 Unless otherwise specified, test(s) performed at: [facility], [address] [place] [address] ASSISTANT MANAGER: Alec Payan M.D. For any questions, please call customer service at FREQUENCY:MONTHLY Resulting Agency Comment Specimen source: Blood Ernie Pompa MD LAB BLOOD ORDERABLES Performing Organization Address City/[facility] Phon e Number APS SPECTRA [facility] IMMUNO [...] BANK TEST ORDERABL ES Performing Organization Address City/[facility]/ZIP Code Phon e Number APS [...] 09/24/2020 Unless otherwise specified, test(s) performed at: [facility], [address] [place] [address] ASSISTANT MANAGER: Alec Payan M.D. For any questions, please call customer service at FREQUENCY:MONTHLY Resulting Agency Comment Specimen source: Serum Ernie Pompa MD LAB BLOOD ORDERABLES Performing Organization Address City/State/ZIP Code Phon e Number [facility]PS SPECTRA [facility] documented in this encounter Visit Diagnoses Not on filedocumented in this encounter
--- OUTSIDE RECORDS SUMMARY | 2021-11-18 12:37 | XMS_ITS | Encounter Summary ---
:1945 Author Organization [facility] Address [address] [place] [address] Care Team Providers Name Role Phone Unavailable Primary Care Provider Unavailable Encounter Details Date Type Department Care Team Description 11/11/2020 Treatment [facility] O f Ernie Guzmán MD [address] [place] [address] [place], [place] [address] [phone] (Wo rk) Social History Tobacco Use Types Packs/Day Years Used Date Smoking Tobacco: Unknown Comments: Smoking History Info:Patient n ot screened Sex Assigned at Date Recorded Not on file documented as of this encounter Miscellaneous Notes Dialysis Note - Ernie Pompa MD - 11/11/2020 9:40 AM CDT Date: Nov 11, 2020 Patient Name: Shaun Ocampo : 1945 Chart #: [id number] Sex: M This patient was personally seen [...] AM ) BP (sit): 128/53 AP(-) / PLANNING SUPERVISOR: 223/184 Pulse: 75 Chairside data as of [...] 08/21/2020 Access Flow > 2000 1138 1772 MANAGER OF TAX: Ernie Pompa MD LOCATION: [place] [phone] SCHEDULE: -W- 2nd Shift ACCESS: EDW: kg. [...] for ureteral ?tumor early next month in [place]. 06/10: Doing well overall, no new complaints, [...] Went to Urgent care -> ER in [place] yesterday,CT with R hydro but no obstructive [...] He had infiltration last week, dialyzed at [facility] on Sat and went well, access ok [...] (08/19/20) Vascular Access Assessment: Type of access: [id number]/2019 Surgeon - Lary GARDNER Access working well [...]
--- OUTSIDE RECORDS SUMMARY | 2021-11-18 12:37 | XMS_ITS | Encounter Summary ---
:1945 Author Organization [facility] Address [address] [place] [address] Care Team Providers Name Role Phone Unavailable Primary Care Provider Unavailable Encounter Details Date Type Department Care Team Description 12/09/2020 Orders Only [facility] O f Ernie Guzmán MD [address] [place] [address] [place], [place] [phone] (Wo rk) Social History Tobacco Use [...] 12/10/2020 Unless otherwise specified, test(s) performed at: [facility]), [address] [place] [address] CASH ACCOUNTANT: Alec Payan M.D. For any questions, please call customer service at FREQUENCY:OTHER Resulting Agency Comment Specimen source: Blood Ernie Pompa MD LAB BLOOD ORDERABLES Performing Organization Address City/State/ZIP Code Phon e Number [facility]PS SPECTRA [facility] documented in this encounter Visit Diagnoses Not on filedocumented in this encounter
--- OUTSIDE RECORDS SUMMARY | 2021-11-18 12:37 | XMS_ITS | Encounter Summary ---
:1945 Author Organization [facility] Address [address] [place] [address] Care Team Providers Name Role Phone Unavailable Primary Care Provider Unavailable Encounter Details Date Type Department Care Team Description 11/18/2020 Orders Only [facility] O f Ernie Guzmán MD [address] [place] [address] [place], [place] [phone] (Wo rk) Social History Tobacco Use [...] MD LAB BLOOD ORDERABLES Performing Organization Address City/[facility]/ZIP Code Phon e Number APS SPECTRA [facility] POST CHEMISTRY (11/18/2020) athologist Signature BUN Post 11 6 - 19 APS SPECTRA Dialysis mg/dL [facility] Specimen (Source) Anatomical Collection Method Collection Time Re ceived Time Location / / Volume Laterality 11/18/2020 11/19/2020 6:04 PM CDT Narrative APS SPECTRA [facility] - 11/19/2020 Unless otherwise specified, test(s) performed at: [facility], [address] [place] [address] ROVING DEPARTMENT END FINDER: Alec Payan M.D. For any questions, please call customer service at FREQUENCY:MONTHLY Resulting Agency Comment Specimen source: Plasma Ernie Pompa MD LAB BLOOD ORDERABLES Performing Organization Address City/[facility] Code Phon e Number APS SPECTRA [facility] IMMUNO CHEMISTRY (11/18/2020) P athologist Signature Hep B Surface Negative Negative APS SPECTRA Ag [facility] Specimen (Source) Anatomical Collection Method Collection Time Re ceived Time Location / / Volume Laterality 11/18/2020 11/19/2020 3:22 PM CDT Narrative APS SPECTRA [facility] - 11/19/2020 Unless otherwise specified, test(s) performed at: [facility], [address] [place] [address] ROVING DEPARTMENT END FINDER: Alec Payan M.D. For any questions, please [...] 11/19/2020 Unless otherwise specified, test(s) performed at: [facility], [address] [place] [address] ROVING DEPARTMENT END FINDER: Alec Payan M.D. For any questions, please call customer service at FREQUENCY:MONTHLY Resulting Agency Comment Specimen source: Blood Ernie Pompa MD LAB BLOOD ORDERABLES Performing Organization Address City/State/[facility] Code Phon e Number APS SPECTRA [facility] (ABNORMAL) Spectrae Chemistry (11/18/2020) P athologist Signature PTH 969 (H) 16 - 80 [facility]PS [facility]RA pg/mL [facility] Specimen (Source) Anatomical Collection Method Collection Time Re ceived Time Location / / Volume Laterality 11/18/2020 11/19/2020 5:01 PM CDT Narrative APS SPECTRA [facility] - 11/19/2020 Unless otherwise specified, test(s) performed at: [facility], [address] [place] [address] ROVING DEPARTMENT END FINDER: Alec Payan M.D. For any questions, please call customer service at FREQUENCY:MONTHLY Resulting Agency Comment Specimen source: Plasma Ernie Pompa MD LAB BLOOD ORDERABLES Performing Organization Address City/State/ZIP Code Phon e Number APS SPECTRA [facility] (ABNORMAL) Spectrae Chemistry (11/18/2020) ascentify gist Method Time Signature BUN 51 (H) [...] 11/19/2020 Unless otherwise specified, test(s) performed at: [facility], [address] [place] [address] ROVING DEPARTMENT END FINDER: Alec Payan M.D. For any questions, please call customer service at FREQUENCY:MONTHLY Resulting Agency Comment Specimen source: Serum Ernie Pompa MD LAB BLOOD ORDERABLES Performing Organization Address City/State/ZIP Code Phon e Number [facility]PS SPECTRA [facility] documented in this encounter Visit Diagnoses Not on filedocumented in this encounter
--- OUTSIDE RECORDS SUMMARY | 2021-11-18 12:37 | XMS_ITS | Encounter Summary ---
:1945 Author Organization [facility] Address [address] [place] [address] Care Team Providers Name Role Phone Unavailable Primary Care Provider Unavailable Encounter Details Date Type Department Care Team Description 01/13/2021 Treatment [facility] O Ernie Gómez MD [address] [place] [address] [place], [place] [phone] (Wo rk) Social History Tobacco Use Types Packs/Day Years Used Date Smoking Tobacco: Unknown Comments: Smoking History Info:Patient n ot screened Sex Assigned at Date Recorded Not on file documented as of this encounter Miscellaneous Notes Dialysis Note - Ernie Pompa MD - 01/13/2021 11:13 AM CDT Date: Jan 13, 2021 Patient Name: Shaun Ocampo : 1945 Chart #: [id number] Sex: M This patient was personally seen [...] AM ) BP (sit): 122/55 AP(-) / SERVICE ADMINISTRATOR: n/a Pulse: 70 Chairside data as of [...] 2.0 mcg ORAL Every Treatment 12/30/2020 12/29/2021 LONG GOODS DRIER: Ernie Pompa MD LOCATION: [facility] [phone] SCHEDULE: -- 2nd Shift ACCESS: EDW: kg. 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 06/10: Doing well overall, no new complaints, [...] Went to Urgent care -> ER in [place] yesterday,CT with R hydro but no obstructive [...] He had infiltration last week, dialyzed at [facility] on Sat and went well, [...] (10/21/20) Vascular Access Assessment: Type of access: [id number]/[email or web address] Surgeon - Lary GARDNER Access working well [...]
--- OUTSIDE RECORDS SUMMARY | 2021-11-18 12:37 | XMS_ITS | Encounter Summary ---
:1945 Author Organization [facility] Address [address] [place] [address] Care Team Providers Name Role Phone Unavailable Primary Care Provider Unavailable Encounter Details Date Type Department Care Team Description 11/18/2020 Treatment [facility] O Ernie Gómez MD [address] [place] [address] [place], [place] [phone] (Wo rk) Social History Tobacco Use Types Packs/Day Years Used Date Smoking Tobacco: Unknown Comments: Smoking History Info:Patient n ot screened Sex Assigned at Date Recorded Not on file documented as of this encounter Miscellaneous Notes Dialysis Note - Ernie Pompa MD - 11/18/2020 9:48 AM CDT Date: Nov 18, 2020 Patient Name: Shaun Ocampo : 1945 Chart #: [id number] Sex: M This patient was personally seen [...] 1.5 mcg ORAL Every Treatment 11/02/2020 11/01/2021 SEWING SUPERVISOR: Ernie Pompa MD LOCATION: [phone] SCHEDULE: -- 2nd Shift EDW: kg. DIALYZER: [...] for ureteral ?tumor early next month in [place]. 06/10: Doing well overall, no new complaints, [...] Went to Urgent care -> ER in [place] yesterday,CT with R hydro but no obstructive [...] prescription. Vascular Access Assessment Type of access: [id number]/2019 Surgeon Annita KUMARW Access working well Anemia [...] goal. Intact PTH is above goal. Head End Desizing Machine Operator will adjust binders and vitamin [...]
--- OUTSIDE RECORDS SUMMARY | 2021-11-18 12:37 | XMS_ITS | Encounter Summary ---
:1945 Author Organization [facility] Address [address] [place] [address] Care Team Providers Name Role Phone Unavailable Primary Care Provider Unavailable Encounter Details Date Type Department Care Team Description 12/09/2020 Treatment [facility] O f Ernie Guzmán MD [address] [place] [address] [place], [place] [phone] (Wo rk) Social History Tobacco Use Types Packs/Day Years Used Date Smoking Tobacco: Unknown Comments: Smoking History Info:Patient n ot screened Sex Assigned at Date Recorded Not on file documented as of this encounter Miscellaneous Notes Dialysis Note - Ernie Pompa MD - 12/09/2020 10:05 AM CDT Date: Dec 09, 2020 Patient Name: Shaun Ocampo : 1945 Chart #: [id number] Sex: M This patient was personally seen [...] AM ) BP (sit): 134/63 AP(-) / EQUIPMENT LEAD: 227/186 Pulse: 69 Chairside data as of [...] 09/18/2020 Access Flow 1432 > 2000 1138 INSPECTOR FILTERS: Ernie Pompa MD LOCATION: [place] [phone] SCHEDULE: -- 2nd Shift ACCESS: EDW: kg. [...] for ureteral ?tumor early next month in [place]. 06/10: Doing well overall, no new complaints, [...] Went to Urgent care -> ER in [place] yesterday,CT with R hydro but no [...] He had infiltration last week, dialyzed at [facility] on Sat and went well, access [...] (09/23/20) Vascular Access Assessment: Type of access: [id number]/2019 Surgeon - Lary GARDNER Access working well [...]
--- OUTSIDE RECORDS SUMMARY | 2021-11-18 12:37 | XMS_ITS | Encounter Summary ---
:1945 Author Organization [facility] Address [address] [place] [address] Care Team Providers Name Role Phone Unavailable Primary Care Provider Unavailable Encounter Details Date Type Department Care Team Description 10/14/2020 Orders Only [facility] O f Ernie Guzmán MD [address] [place] [address] [place], [place] [phone] (Wo rk) Social History Tobacco Use [...] 10/15/2020 Unless otherwise specified, test(s) performed at: [facility], [address] [place] [address] RV REPAIR TECHNICIAN: Alec Payan M.D. For any questions, please call customer service at FREQUENCY:OTHER Resulting Agency Comment Specimen source: Blood Ernie Pompa MD LAB BLOOD ORDERABLES Performing Organization Address City/State/ZIP Code Phon e Number APS SPECTRA [facility] documented in this encounter Visit Diagnoses Not on filedocumented in this encounter
--- OUTSIDE RECORDS SUMMARY | 2021-11-18 12:37 | XMS_ITS | Encounter Summary ---
:1945 Author Organization [facility] Address [address] [place] [address] Care Team Providers Name Role Phone Unavailable Primary Care Provider Unavailable Encounter Details Date Type Department Care Team Description 11/04/2020 [facility] f Ernie Guzmán MD [address] [place] [address] [place], [place] [phone] (Wo rk) Social History Tobacco Use [...] 11/05/2020 Unless otherwise specified, test(s) performed at: [facility], [address] [place] [address] PIT RECORDER: Alec Payan M.D. For any questions, please call customer service at FREQUENCY:OTHER Resulting Agency Comment Specimen source: Blood Ernie Pompa MD LAB BLOOD ORDERABLES Performing Organization Address City/State/ZIP Code Phon e Number [facility] documented in this encounter Visit Diagnoses Not on filedocumented in this encounter
--- OUTSIDE RECORDS SUMMARY | 2021-11-18 12:37 | XMS_ITS | Encounter Summary ---
:1945 Author Organization [facility] Address [address] [place] [address] Care Team Providers Name Role Phone Unavailable Primary Care Provider Unavailable Encounter Details Date Type Department Care Team Description 09/16/2020 [facility] f Ernie Guzmán MD [address] [place] [address] [place], [place] [phone] (Wo rk) Social History Tobacco Use [...] 09/17/2020 Unless otherwise specified, test(s) performed at: [facility], [address] [place] [address] CONTROLS ENGINEER: Alec Payan M.D. For any questions, please call customer service at FREQUENCY:OTHER Resulting Agency Comment Specimen source: Blood Ernie Pompa MD LAB BLOOD ORDERABLES Performing Organization Address City/State/ZIP Code Phon e Number [facility] documented in this encounter Visit Diagnoses Not on filedocumented in this encounter
--- OUTSIDE RECORDS SUMMARY | 2021-11-18 12:37 | XMS_ITS | Encounter Summary ---
:1945 Author Organization [facility] Address [address] [place] [address] Care Team Providers Name Role Phone Unavailable Primary Care Provider Unavailable Encounter Details Date Type Department Care Team Description 10/28/2020 [facility] f Ernie Guzmán MD [address] [place] [address] [place], [place] [phone] (Wo rk) Social History Tobacco Use [...] 10/29/2020 Unless otherwise specified, test(s) performed at: [facility], [address] [place] [address] CERTIFIED PHARMACY TECH: Alec Payan M.D. For any questions, please call customer service at FREQUENCY:OTHER Resulting Agency Comment Specimen source: Blood Ernie Pompa MD LAB BLOOD ORDERABLES Performing Organization Address City/State/ZIP Code Phon e Number [facility] documented in this encounter Visit Diagnoses Not on filedocumented in this encounter
--- OUTSIDE RECORDS SUMMARY | 2021-11-18 12:37 | XMS_ITS | Encounter Summary ---
:1945 Author Organization [facility] Address [address] [place] [address] Care Team Providers Name Role Phone Unavailable Primary Care Provider Unavailable Encounter Details Date Type Department Care Team Description 01/06/2021 [facility] O f Ernie Guzmán MD [address] [place] [address] [place], [place] [phone] (Wo rk) Social History Tobacco Use [...] 01/07/2021 Unless otherwise specified, test(s) performed at: [facility], [address] [place] [address] COFFEE SHOP ATTENDANT: Alec Payan M.D. For any questions, please call customer service at FREQUENCY:OTHER Resulting Agency Comment Specimen source: Blood Ernie Pompa MD LAB BLOOD ORDERABLES Performing Organization Address City/State/ZIP Code Phon e Number [facility] documented in this encounter Visit Diagnoses Not on filedocumented in this encounter
--- OUTSIDE RECORDS SUMMARY | 2021-11-18 12:37 | XMS_ITS | Encounter Summary ---
:1945 Author Organization [facility] Address [address] [place] [address] Care Team Providers Name Role Phone Unavailable Primary Care Provider Unavailable Encounter Details Date Type Department Care Team Description 10/07/2020 [facility] f Ernie Guzmán MD [address] [place] [address] [place], [place] [phone] (Wo rk) Social History Tobacco Use [...] 10/09/2020 Unless otherwise specified, test(s) performed at: [email or web address], [address] [place] [address] LETTERER: Alec Payan M.D. For any questions, please call customer service at FREQUENCY:OTHER Resulting Agency Comment Specimen source: Blood Ernie Pompa MD LAB BLOOD ORDERABLES Performing Organization Address City/State/ZIP Code Phon e Number [facility] documented in this encounter Visit Diagnoses Not on filedocumented in this encounter
--- OUTSIDE RECORDS SUMMARY | 2021-11-18 12:37 | XMS_ITS | Encounter Summary ---
:1945 Author Organization [facility] Address [address] [place] [address] Care Team Providers Name Role Phone Unavailable Primary Care Provider Unavailable Encounter Details Date Type Department Care Team Description 12/30/2020 Treatment [facility] O Ernie Gómez MD [address] [place] [address] [place], [place] [phone] [phone] (Wo rk) Social History Tobacco Use Types Packs/Day Years Used Date Smoking Tobacco: Unknown Comments: Smoking History Info:Patient n ot screened Sex Assigned at Date Recorded Not on file documented as of this encounter Miscellaneous Notes Dialysis Note - Ernie Pompa MD - 12/30/2020 11:49 AM CDT Date: Dec 30, 2020 Patient Name: Shaun Ocampo : 1945 Chart #: [id number] Sex: M This patient was personally seen [...] AM ) BP (sit): 117/57 AP(-) / COMPOUNDER STERILE PRODUCTS: 240/207 Pulse: 75 Chairside data as of [...] 2.0 mcg ORAL Every Treatment 12/30/2020 12/29/2021 REHABILITATION SERVICES COORDINATOR: Ernie Pompa MD LOCATION: [facility] [phone] SCHEDULE: -- 2nd Shift EDW: kg. DIALYZER: [...] for ureteral ?tumor early next month in [place]. 06/10: Doing well overall, no new complaints, [...] Went to Urgent care -> ER in [place] yesterday,CT with R hydro but no obstructive [...] prescription. Vascular Access Assessment Type of access: [id number]/2019 Surgeon Annita GARDNER Access working well Anemia [...] at goal. Intact PTH is at goal. Convention Manager will adjust binders and vitamin D [...]
--- OUTSIDE RECORDS SUMMARY | 2021-11-18 12:37 | XMS_ITS | Encounter Summary ---
:1945 Author Organization [facility] Address [address] [place] [address] Care Team Providers Name Role Phone Unavailable Primary Care Provider Unavailable Encounter Details Date Type Department Care Team Description 10/07/2020 Treatment [facility] f Ernie Guzmán MD [address] [place] [address] [place], [place] [address] [phone] (Wo rk) Social History Tobacco Use Types Packs/Day Years Used Date Smoking Tobacco: Unknown Comments: Smoking History Info:Patient n ot screened Sex Assigned at Date Recorded Not on file documented as of this encounter Miscellaneous Notes Dialysis Note - Ernie Pompa MD - 10/07/2020 10:59 AM CDT Date: Oct 07, 2020 Patient Name: Shaun Ocampo : 1945 Chart #: [id number] Sex: M This patient was personally seen [...] AM ) BP (sit): 125/63 AP(-) / LIBRARY CLERICAL ASSISTANT: 232/178 Pulse: 70 Chairside data as of [...] Every 2 weeks During Dialysis 09/30/2020 09/29/2021 MACHINE SHOP LEAD MAN: Ernie Pompa MD LOCATION: [facility] [phone] SCHEDULE: M-W- 2nd Shift ACCESS: EDW: kg. [...] for ureteral ?tumor early next month in [place]. 06/10: Doing well overall, no new complaints, [...] Went to Urgent care -> ER in [place] yesterday,CT with R hydro but no obstructive [...] had infiltration last week, dialyzed at [facility] on Sat and went well, access [...] (07/22/20) Vascular Access Assessment: Type of access: [id number]/2019 Surgeon - Lary KUMARW Access working well [...]
--- OUTSIDE RECORDS SUMMARY | 2021-11-18 12:37 | XMS_ITS | Encounter Summary ---
:1945 Author Organization [facility] Address [address] [place] [address] Care Team Providers Name Role Phone Unavailable Primary Care Provider Unavailable Encounter Details Date Type Department Care Team Description 12/23/2020 [facility] O f Ernie Guzmán MD [address] [place] [address] [place], [place] [phone] (Wo rk) Social History Tobacco Use [...] Provider LAB BLOOD ORDERABLES Performing Organization Address City/[facility]/ZIP Code Phon e Number [facility] (12/23/2020) P athologist Signature % Urea 75 65 - 80 % [facility] Reduction [facility] Specimen (Source) Anatomical Collection Method Collection Time Re ceived Time Location / / Volume Laterality 12/23/2020 12/24/2020 8:52 PM CDT Narrative [facility] - 12/25/2020 Unless otherwise specified, test(s) performed at: [facility], [address] [place], [place] [id number] TOXICOLOGY SUPERVISOR: Alec Payan M.D. For any questions, please call customer service at FREQUENCY:MONTHLY Resulting Agency Comment Specimen source: Serum Ernie Pompa MD LAB BLOOD ORDERABLES Performing Organization Address [facility] Phon e Number [facility] IMMUNO CHEMISTRY (12/23/2020) P athologist Signature Hep B Surface Negative Negative [facility] Ag [facility] Specimen (Source) Anatomical Collection Method Collection Time Re ceived Time Location / / Volume Laterality 12/23/2020 12/24/2020 8:51 PM CDT Narrative [facility] - 12/25/2020 Unless otherwise specified, test(s) performed at: [facility], [address] [place] [address] TOXICOLOGY SUPERVISOR: Alec Payan M.D. For any questions, please call customer service at FREQUENCY:MONTHLY Resulting Agency Comment Specimen source: Serum Ernie Pompa MD LAB BLOOD ORDERABLES Performing Organization Address City/[facility] Code Phon e Number APS [...] 12/25/2020 Unless otherwise specified, test(s) performed at: [facility], [address] [place] [address] TOXICOLOGY SUPERVISOR: Alec Payan M.D. For any questions, [...] 12/25/2020 Unless otherwise specified, test(s) performed at: [facility], [address] [place] [address] TOXICOLOGY SUPERVISOR: Alec Payan M.D. For any questions, please call customer service at FREQUENCY:MONTHLY Resulting Agency Comment Specimen source: Plasma Ernie Pompa MD LAB BLOOD ORDERABLES Performing Organization Address City/[facility] Phon e Number [facility] POST CHEMISTRY (12/23/2020) P athologist Signature BUN Post 11 6 - 19 [facility] SPECTRA Dialysis mg/dL [facility] Specimen (Source) Anatomical Collection Method Collection Time Re ceived Time Location / / Volume Laterality 12/23/2020 12/24/2020 3:54 PM CDT Narrative [facility] - 12/24/2020 Unless otherwise specified, test(s) performed at: [facility], [address] [place] [address] TOXICOLOGY SUPERVISOR: Alec Payan M.D. For any questions, please call customer service at FREQUENCY:MONTHLY Resulting Agency Comment Specimen source: Plasma Ernie Pompa MD LAB BLOOD ORDERABLES Performing Organization Address City/[facility]/ZIP Code Phon e Number APS [...] 12/24/2020 Unless otherwise specified, test(s) performed at: [facility], [address] [place] [address] TOXICOLOGY SUPERVISOR: Alec Payan M.D. For any questions, please call customer service at FREQUENCY:MONTHLY Resulting Agency Comment Specimen source: Blood Ernie Pompa MD LAB BLOOD ORDERABLES Performing Organization Address City/State/ZIP Code Phon e Number [facility] documented in this encounter Visit Diagnoses Not on filedocumented in this encounter
--- OUTSIDE RECORDS SUMMARY | 2021-11-18 12:37 | XMS_ITS | Encounter Summary ---
:1945 Author Organization [facility] Address [address] [place] [address] Care Team Providers Name Role Phone Unavailable Primary Care Provider Unavailable Encounter Details Date Type Department Care Team Description 01/20/2021 Treatment [facility] O Ernie Gómez MD [address] [place] [address] [place], [place] [address] [phone] (Wo rk) Social History Tobacco Use Types Packs/Day Years Used Date Smoking Tobacco: Unknown Comments: Smoking History Info:Patient n ot screened Sex Assigned at Date Recorded Not on file documented as of this encounter Miscellaneous Notes Dialysis Note - Ernie Pompa MD - 01/20/2021 9:46 AM CDT Date: Jan 20, 2021 Patient Name: Shaun Ocampo : 1945 Chart #: [id number] Sex: M This patient was personally seen [...] 2.0 mcg ORAL Every Treatment 12/30/2020 12/29/2021 BODY LINER: Ernie Pompa MD LOCATION: [place] [phone] SCHEDULE: -- 2nd Shift EDW: kg. DIALYZER: [...] for ureteral ?tumor early next month in [place]. 06/10: Doing well overall, no new complaints, [...] Went to Urgent care -> ER in [place] yesterday,CT with R hydro but no obstructive [...] He had infiltration last week, dialyzed at [facility] on Sat and went well, [...] prescription. Vascular Access Assessment Type of access: [id number]/2019 Surgeon Annita KUMARW Access working well Anemia [...] at goal. Intact PTH is at goal. Bench Press Operator will adjust binders and vitamin D [...]
--- OUTSIDE RECORDS SUMMARY | 2021-11-18 12:37 | XMS_ITS | Encounter Summary ---
:1945 Author Organization [facility] Address [address] [place] [address] Care Team Providers Name Role Phone Unavailable Primary Care Provider Unavailable Encounter Details Date Type Department Care Team Description 12/16/2020 Orders Only [facility] O f Ernie Guzmán MD [address] [place] [address] [place], [place] [phone] (Wo rk) Social History Tobacco Use [...] 12/17/2020 Unless otherwise specified, test(s) performed at: [facility], [address] [place] [address] SCHOOL ATHLETIC DIRECTOR: Alec Payan M.D. For any questions, please call customer service at FREQUENCY:OTHER Resulting Agency Comment Specimen source: Blood Ernie Pompa MD LAB BLOOD ORDERABLES Performing Organization Address City/State/ZIP Code Phon e Number [facility] documented in this encounter Visit Diagnoses Not on filedocumented in this encounter
--- OUTSIDE RECORDS SUMMARY | 2021-11-18 12:37 | XMS_ITS | Encounter Summary ---
:1945 Author Organization [facility] Address [address] [place] [address] Care Team Providers Name Role Phone Unavailable Primary Care Provider Unavailable Encounter Details Date Type Department Care Team Description 10/21/2020 Treatment [facility] O Ernie Gómez MD [address] [place] [address] [place], [place] [address] [phone] (Wo rk) Social History Tobacco Use Types Packs/Day Years Used Date Smoking Tobacco: Unknown Comments: Smoking History Info:Patient n ot screened Sex Assigned at Date Recorded Not on file documented as of this encounter Miscellaneous Notes Dialysis Note - Ernie Pompa MD - 10/21/2020 12:00 PM CDT Date: Oct 21, 2020 Patient Name: Shaun Ocampo : 1945 Chart #: [id number] Sex: M This patient was personally seen [...] Every 2 weeks During Dialysis 09/30/2020 09/29/2021 HEALTH CARE ATTORNEY: Ernie Pompa MD [phone] SCHEDULE: -W- 2nd Shift EDW: kg. 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 06/10: Doing well overall, no new complaints, [...] Went to Urgent care -> ER in [place] yesterday,CT with R hydro but no obstructive [...] prescription. Vascular Access Assessment Type of access: [id number]/2019 Surgeon - Lary KUMARW Access working well [...] at goal. Intact PTH is above goal. Fit Model will adjust binders and vitamin D per [...]
--- OUTSIDE RECORDS SUMMARY | 2021-11-18 12:37 | XMS_ITS | Encounter Summary ---
:1945 Author Organization [facility] Address [address] [place] [address] Care Team Providers Name Role Phone Unavailable Primary Care Provider Unavailable Encounter Details Date Type Department Care Team Description 11/11/2020 Orders [facility] O f Ernie Guzmán MD [address] [place] [address] [place], [place] [phone] (Wo rk) Social History Tobacco Use [...] 11/12/2020 Unless otherwise specified, test(s) performed at: [facility], [address] [place] [address] VOTING MACHINE MECHANIC: Alec Payan M.D. For any questions, please call customer service at FREQUENCY:OTHER Resulting Agency Comment Specimen source: Blood Ernie Pompa MD LAB BLOOD ORDERABLES Performing Organization Address City/State/ZIP Code Phon e Number [facility] documented in this encounter Visit Diagnoses Not on filedocumented in this encounter
--- OUTSIDE RECORDS SUMMARY | 2021-11-18 12:37 | XMS_ITS | Encounter Summary ---
:1945 Author Organization [facility] Address [address] [place] [address] Care Team Providers Name Role Phone Unavailable Primary Care Provider Unavailable Encounter Details Date Type Department Care Team Description 09/25/2020 Orders [facility] O f Ernie Guzmán MD [address] [place] [address] [place], [place] [phone] (Wo rk) Social History Tobacco Use [...] 09/26/2020 Unless otherwise specified, test(s) performed at: [facility], [address] [place] [address] PROCESS SAFETY ENGINEERING TECHNOLOGIST: Alec Payan M.D. For any questions, please call customer service at FREQUENCY:OTHER Resulting Agency Comment Specimen source: Serum Ernie Pompa MD LAB BLOOD ORDERABLES Performing Organization Address City/State/ZIP Code Phon e Number [facility] documented in this encounter Visit Diagnoses Not on filedocumented in this encounter
--- OUTSIDE RECORDS SUMMARY | 2021-11-18 12:37 | XMS_ITS | Encounter Summary ---
:1945 Author Organization [facility] Address [address] [place] [address] Care Team Providers Name Role Phone Unavailable Primary Care Provider Unavailable Encounter Details Date Type Department Care Team Description 01/13/2021 Orders [facility] O f Ernie Guzmán MD [address] [place] [address] [place], [place] [phone] (Wo rk) Social History Tobacco Use [...] 01/14/2021 Unless otherwise specified, test(s) performed at: [facility], [address] [place] [address] OPTOMETRIC AIDE: Alec Payan M.D. For any questions, please call customer service at FREQUENCY:OTHER Resulting Agency Comment Specimen source: Blood Ernie Pompa MD LAB BLOOD ORDERABLES Performing Organization Address City/State/ZIP Code Phon e Number [facility] documented in this encounter Visit Diagnoses Not on filedocumented in this encounter
--- OUTSIDE RECORDS SUMMARY | 2021-11-18 12:37 | XMS_ITS | Encounter Summary ---
:1945 Author Organization [facility] Address [address] [place] [address] Care Team Providers Name Role Phone Unavailable Primary Care Provider Unavailable Encounter Details Date Type Department Care Team Description 11/25/2020 Orders [facility] O f Ernie Guzmán MD [address] [place] [address] [place], [place] [phone] (Wo rk) Social History Tobacco Use [...] 11/26/2020 Unless otherwise specified, test(s) performed at: [facility], [address] [place] [address] NEUROLOGY PROFESSOR: Alec Payan M.D. For any questions, please call customer service at FREQUENCY:OTHER Resulting Agency Comment Specimen source: Blood Ernie Pompa MD LAB BLOOD ORDERABLES Performing Organization Address City/State/ZIP Code Phon e Number [facility] documented in this encounter Visit Diagnoses Not on filedocumented in this encounter
--- OUTSIDE RECORDS SUMMARY | 2021-11-18 12:37 | XMS_ITS | Encounter Summary ---
:1945 Author Organization [facility] Address [address] [place] [address] Care Team Providers Name Role Phone Unavailable Primary Care Provider Unavailable Encounter Details Date Type Department Care Team Description 12/02/2020 Orders [facility] O f Ernie Guzmán MD [address] [place] [address] [place], [place] [phone] (Wo rk) Social History Tobacco Use [...] 12/03/2020 Unless otherwise specified, test(s) performed at: [email or web address], [address] [place] [address] RADIO TESTER: Alec Payan M.D. For any questions, please call customer service at FREQUENCY:OTHER Resulting Agency Comment Specimen source: Blood Ernie Pompa MD LAB BLOOD ORDERABLES Performing Organization Address City/State/ZIP Code Phon e Number [facility] documented in this encounter Visit Diagnoses Not on filedocumented in this encounter
--- OUTSIDE RECORDS SUMMARY | 2021-11-18 12:37 | XMS_ITS | Encounter Summary ---
:1945 Author Organization [facility] Address [address] [place] [address] Care Team Providers Name Role Phone Unavailable Primary Care Provider Unavailable Encounter Details Date Type Department Care Team Description 09/30/2020 [facility] O f Ernie Guzmán MD [address] [place] [address] [place], [place] [phone] (Wo rk) Social History Tobacco Use [...] Provider LAB BLOOD ORDERABLES Performing Organization Address [facility] Code Phon e Number KAMERON (ABNORMAL) [...] 10/02/2020 Unless otherwise specified, test(s) performed at: [facility], [address] [place], [place] [address] FOREST FIRE CONTROL OFFICER: Alec Payan M.D. For any questions, please call customer service at FREQUENCY:OTHER Resulting Agency Comment Specimen source: Blood Ernie Pompa MD LAB BLOOD ORDERABLES Performing Organization Address [facility] Phon e Number APS SPECTRA [facility] HD KINETICS (09/30/2020) P athologist Signature % Urea 77 65 - 80 % APS SPECTRA Reduction [facility] Specimen (Source) Anatomical Collection Method Collection Time Re ceived Time Location / / Volume Laterality 09/30/2020 10/01/2020 5:40 PM CDT Narrative APS SPECTRA [facility] - 10/01/2020 Unless otherwise specified, test(s) performed at: [facility], [address] [place] [address] FOREST FIRE CONTROL OFFICER: Alec Payan M.D. For any questions, please call customer service at FREQUENCY:OTHER Resulting Agency Comment Specimen source: Serum Ernie Pompa MD LAB BLOOD ORDERABLES Performing Organization Address [facility] Phon e Number APS SPECTRA [facility] (ABNORMAL) Spectrae Chemistry (09/30/2020) P athologist Signature BUN 44 (H) 6 - 19 APS SPECTRA mg/dL [facility] Specimen (Source) Anatomical Collection Method Collection Time Re ceived Time Location / / Volume Laterality 09/30/2020 10/01/2020 5:39 PM CDT Narrative APS SPECTRA [facility] - 10/01/2020 Unless otherwise specified, test(s) performed at: [facility], [address] [place] [address] FOREST FIRE CONTROL OFFICER: Alec Payan M.D. For any questions, please call customer service at FREQUENCY:OTHER Resulting Agency Comment Specimen source: Serum Ernie Pompa MD LAB BLOOD ORDERABLES Performing Organization Address City/[facility]/ZIP [facility] Phon e Number APS SPECTRA [facility] POST CHEMISTRY (09/30/2020) P athologist Signature BUN Post 10 6 - 19 APS SPECTRA Dialysis mg/dL [facility] Specimen (Source) Anatomical Collection Method Collection Time Re ceived Time Location / / Volume Laterality 09/30/2020 10/01/2020 12:4 3 PM CDT Narrative APS SPECTRA [facility] - 10/01/2020 Unless otherwise specified, test(s) performed at: [facility], [address] [place] [address] FOREST FIRE CONTROL OFFICER: Alec Payan M.D. For any questions, please call customer service at FREQUENCY:OTHER Resulting Agency Comment Specimen source: Plasma Ernie Pompa MD LAB BLOOD ORDERABLES Performing Organization Address City/[facility]/ZIP [facility] Phon e Number APS SPECTRA [facility] documented in this encounter Visit Diagnoses Not on filedocumented in this encounter
--- OUTSIDE RECORDS SUMMARY | 2021-11-18 12:37 | XMS_ITS | Encounter Summary ---
:1945 Author Organization [facility] Address [address] [place] [address] Care Team Providers Name Role Phone Unavailable Primary Care Provider Unavailable Encounter Details Date Type Department Care Team Description 10/21/2020 [facility] O f Ernie Guzmán MD [address] [place] [address] [place], [place] [phone] (Wo rk) Social History Tobacco Use [...] Provider LAB BLOOD ORDERABLES Performing Organization Address City/[facility]/ZIP Code Phon e Number KAMERON IMMUNO CHEMISTRY (10/21/2020) athologist Signature Hep B Surface Negative Negative APS SPECTRA Ag [facility] Specimen (Source) Anatomical Collection Method Collection Time Re ceived Time Location / / Volume Laterality 10/21/2020 10/22/2020 9:40 PM CDT Narrative APS SPECTRA [facility] - 10/23/2020 Unless otherwise specified, test(s) performed at: [facility], [address] [place], [place] [id number] PRODUCTION RECORDER: Alec Payan M.D. For any questions, please call customer service at FREQUENCY:MONTHLY Resulting Agency Comment Specimen source: Serum Ernie Pompa MD LAB BLOOD ORDERABLES Performing Organization Address [facility] Phon e Number APS SPECTRA [facility] (ABNORMAL) Spectrae Chemistry (10/21/2020) athologist [facility] PTH 785 (H) 16 - 80 APS SPECTRA pg/mL [facility] Specimen (Source) Anatomical Collection Method Collection Time Re ceived Time Location / / Volume Laterality 10/21/2020 10/22/2020 8:05 PM CDT Narrative APS SPECTRA [facility] - 10/23/2020 Unless otherwise specified, test(s) performed at: [facility], [address] [place] [address] PRODUCTION RECORDER: Alec Payan M.D. For any questions, please call customer service at FREQUENCY:MONTHLY Resulting Agency Comment Specimen source: Plasma Ernie Pompa MD LAB BLOOD ORDERABLES Performing Organization Address City/[facility] Phon e Number APS SPECTRA [facility] HD KINETICS (10/21/2020) athologist Signature % Urea 76 65 - 80 % APS SPECTRA Reduction [facility] Specimen (Source) Anatomical Collection Method Collection Time Re ceived Time Location / / Volume Laterality 10/21/2020 10/22/2020 9:40 PM CDT Narrative APS SPECTRA [facility] - 10/23/2020 Unless otherwise specified, test(s) performed at: [facility], [address] [place] [address] PRODUCTION RECORDER: Alec Payan M.D. For any questions, please call customer service at FREQUENCY:MONTHLY Resulting Agency Comment Specimen source: Serum Ernie Pompa MD LAB BLOOD ORDERABLES Performing Organization Address City/State/ZIP Code Phon e Number APS SPECTRA [facility] (ABNORMAL) Spectrae Chemistry (10/21/2020) [facility] gist Method Time Signature BUN 45 [...] 10/23/2020 Unless otherwise specified, test(s) performed at: [facility], [address] [place] [address] PRODUCTION RECORDER: Alec Payan M.D. For any questions, [...] 10/23/2020 Unless otherwise specified, test(s) performed at: [facility], [address] [place] [address] PRODUCTION RECORDER: Alec Payan M.D. For any questions, [...] 10/22/2020 Unless otherwise specified, test(s) performed at: [facility], [address] [place] [address] PRODUCTION RECORDER: Alec Payan M.D. For any questions, please call customer service at FREQUENCY:MONTHLY Resulting Agency Comment Specimen source: Plasma Ernie Pompa MD LAB BLOOD ORDERABLES Performing Organization Address City/State/[facility] Code Phon e Number APS SPECTRA [facility] documented in this encounter Visit Diagnoses Not on filedocumented in this encounter
--- OUTSIDE RECORDS SUMMARY | 2021-11-18 12:38 | XMS_ITS | Encounter Summary ---
:1945 Author Organization [facility] Address [address] [place] [address] Care Team Providers Name Role Phone Unavailable Primary Care Provider Unavailable Encounter Details Date Type Department Care Team Description 08/19/2020 Treatment [facility] f Ernie Guzmán MD [address] [place] [address] [place], [place] [phone] (Wo rk) Social History Tobacco Use Types Packs/Day Years Used Date Smoking Tobacco: Unknown Comments: Smoking History Info:Patient n ot screened Sex Assigned at Date Recorded Not on file documented as of this encounter Miscellaneous Notes Dialysis Note - Ernie Pompa MD - 08/19/2020 12:37 PM CDT Date: Aug 19, 2020 Patient Name: Shaun Ocampo : 1945 Chart #: [id number] Sex: M This patient was personally seen [...] PM ) BP (sit): 110/40 AP(-) / ASSURANCE ASSOCIATE: 250/194 Pulse: 67 Chairside data as of [...] Every 4 weeks During Dialysis 08/19/2020 08/18/2021 FORENSIC PHOTOGRAPHER: Ernie Pompa MD LOCATION: [phone] SCHEDULE: M-W- 2nd Shift EDW: kg. 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 06/10: Doing well overall, no new complaints, [...] prescription. Vascular Access Assessment Type of access: [id number]/2019 Surgeon - Lary GARDNER Access working well [...] above goal. Intact PTH is above goal. Laboratory Coordinator will adjust binders and vitamin D [...]
--- OUTSIDE RECORDS SUMMARY | 2021-11-18 12:38 | XMS_ITS | Encounter Summary ---
:1945 Author Organization [facility] Address [address] [place] [address] Care Team Providers Name Role Phone Unavailable Primary Care Provider Unavailable Encounter Details Date Type Department Care Team Description 07/08/2020 [facility] O f Ernie Guzmán MD [phone] [place] [address] [place], [place] [phone] (Wo rk) Social History Tobacco Use [...] 07/09/2020 Unless otherwise specified, test(s) performed at: [facility] [address] [place] [address] OIL WELL SERVICE OPERATOR: Alec Payan M.D. For any questions, please call customer service at FREQUENCY:OTHER Resulting Agency Comment Specimen source: Blood Ernie Pompa MD LAB BLOOD ORDERABLES Performing Organization Address City/State/ZIP Code Phon e Number APS SPECTRA [facility] documented in this encounter Visit Diagnoses Not on filedocumented in this encounter
--- OUTSIDE RECORDS SUMMARY | 2021-11-18 12:38 | XMS_ITS | Encounter Summary ---
:1945 Author Organization [facility] Address [address] [place] [address] Care Team Providers Name Role Phone Unavailable Primary Care Provider Unavailable Encounter Details Date Type Department Care Team Description 06/10/2020 Treatment [facility] O Ernie Gómez MD [address] [place] [address] [place], [place] [phone] [phone] (Wo rk) Social History Tobacco Use Types Packs/Day Years Used Date Smoking Tobacco: Unknown Comments: Smoking History Info:Patient n ot screened Sex Assigned at Date Recorded Not on file documented as of this encounter Miscellaneous Notes Dialysis Note - Ernie Pompa MD - 06/10/2020 11:04 AM CDT Date: Jun 10, 2020 Patient Name: Shaun Ocampo : 1945 Chart #: [id number] Sex: M This patient was personally seen [...] AM ) BP (sit): 120/54 AP(-) / PORTAL ARCHITECT: 219/180 Pulse: 69 Chairside data as of [...] Every 4 weeks During Dialysis 04/15/2020 04/14/2021 MACHINE GUN MECHANIC: Ernie Pompa MD LOCATION: [phone] SCHEDULE: M-W-F 2nd Shift ACCESS: EDW: kg. [...] He had infiltration last week, dialyzed at [facility] on Sat and went well, access [...] (03/25/20) Vascular Access Assessment: Type of access: [id number] Surgeon - Lary GARDNER Access working well [...]
--- OUTSIDE RECORDS SUMMARY | 2021-11-18 12:38 | XMS_ITS | Encounter Summary ---
:1945 Author Organization [facility] Address [address] [place] [address] Care Team Providers Name Role Phone Unavailable Primary Care Provider Unavailable Encounter Details Date Type Department Care Team Description 06/10/2020 Orders Only [facility] O f Ernie Guzmán MD [address] [place] [address] [place], [place] [phone] (Wo rk) Social History Tobacco Use [...] 06/11/2020 Unless otherwise specified, test(s) performed at: [facility], [address] [place] [address] SENIOR PROGRAM MANAGER: Alec Payan M.D. For any questions, please call customer service at FREQUENCY:OTHER Resulting Agency Comment Specimen source: Blood Ernie Pompa MD LAB BLOOD ORDERABLES Performing Organization Address City/State/ZIP Code Phon e Number APS SPECTRA [facility] documented in this encounter Visit Diagnoses Not on filedocumented in this encounter
--- OUTSIDE RECORDS SUMMARY | 2021-11-18 12:38 | XMS_ITS | Encounter Summary ---
:1945 Author Organization [facility] Address [address] [place] [address] Care Team Providers Name Role Phone Unavailable Primary Care Provider Unavailable Encounter Details Date Type Department Care Team Description 2020 [facility] O f Ernie Guzmán MD [address] [place] [address] [place], [place] [phone] (Wo rk) Social History Tobacco Use [...] 08/06/2020 Unless otherwise specified, test(s) performed at: [facility], [address] [place] [address] EVP CHIEF EXPLORATION OFFICER: Alec Payan M.D. For any questions, please call customer service at FREQUENCY:OTHER Resulting Agency Comment Specimen source: Blood Ernie Pompa MD LAB BLOOD ORDERABLES Performing Organization Address City/State/ZIP Code Phon e Number APS SPECTRA [facility] documented in this encounter Visit Diagnoses Not on filedocumented in this encounter
--- OUTSIDE RECORDS SUMMARY | 2021-11-18 12:38 | XMS_ITS | Encounter Summary ---
:1945 Author Organization [facility] Address [address] [place] [address] Care Team Providers Name Role Phone Unavailable Primary Care Provider Unavailable Encounter Details Date Type Department Care Team Description 06/17/2020 [facility] O f Ernie Guzmán MD [address] [place] [address] [place], [place] [phone] (Wo rk) Social History Tobacco Use [...] 06/18/2020 Unless otherwise specified, test(s) performed at: [facility], [address] [place] [address] SPECIAL DAY CLASS TEACHER: Alec Payan M.D. For any questions, please call customer service at FREQUENCY:OTHER Resulting Agency Comment Specimen source: Blood Ernie Pompa MD LAB BLOOD ORDERABLES Performing Organization Address City/State/ZIP Code Phon e Number APS SPECTRA [facility] documented in this encounter Visit Diagnoses Not on filedocumented in this encounter
--- OUTSIDE RECORDS SUMMARY | 2021-11-18 12:38 | XMS_ITS | Encounter Summary ---
:1945 Author Organization [facility] Address [address] [place] [address] Care Team Providers Name Role Phone Unavailable Primary Care Provider Unavailable Encounter Details Date Type Department Care Team Description 07/15/2020 Orders [facility] O f Ernie Guzmán MD [address] [place] [address] [place], [place] [phone] (Wo rk) Social History Tobacco Use [...] 07/16/2020 Unless otherwise specified, test(s) performed at: [facility], [address] [place] [address] DIMENSION STONE QUARRY SUPERVISOR: Alec Payan M.D. For any questions, please call customer service at FREQUENCY:OTHER Resulting Agency Comment Specimen source: Blood Ernie Pompa MD LAB BLOOD ORDERABLES Performing Organization Address City/State/ZIP Code Phon e Number APS SPECTRA [facility] documented in this encounter Visit Diagnoses Not on filedocumented in this encounter
--- OUTSIDE RECORDS SUMMARY | 2021-11-18 12:38 | XMS_ITS | Encounter Summary ---
:1945 Author Organization [facility] Address [address] [place] [address] Care Team Providers Name Role Phone Unavailable Primary Care Provider Unavailable Encounter Details Date Type Department Care Team Description 09/02/2020 [facility] O f Ernie Guzmán MD [address] [place] [address] [place], [place] [phone] (Wo rk) Social History Tobacco Use [...] 09/03/2020 Unless otherwise specified, test(s) performed at: [facility], [address] [place] [address] PIGS FEET FINISHER: Alec Payan M.D. For any questions, please call customer service at FREQUENCY:OTHER Resulting Agency Comment Specimen source: Blood Ernie Pompa MD LAB BLOOD ORDERABLES Performing Organization Address City/State/ZIP Code Phon e Number APS SPECTRA [facility] documented in this encounter Visit Diagnoses Not on filedocumented in this encounter
--- OUTSIDE RECORDS SUMMARY | 2021-11-18 12:38 | XMS_ITS | Encounter Summary ---
:1945 Author Organization [facility] Address [address] [place] [address] Care Team Providers Name Role Phone Unavailable Primary Care Provider Unavailable Encounter Details Date Type Department Care Team Description 07/22/2020 Orders [facility] O f Ernie Guzmán MD [address] [place] [address] [place], [place] [phone] (Wo rk) Social History Tobacco Use [...] 07/24/2020 Unless otherwise specified, test(s) performed at: [facility], [address] [place] [address] GENERATOR OPERATOR: Alec Paayn M.D. For any questions, please call customer service at FREQUENCY:MONTHLY Resulting Agency Comment Specimen source: Plasma Ernie Pompa MD LAB BLOOD ORDERABLES Performing Organization Address City/[facility] Phon e Number APS SPECTRA [facility] IMMUNO CHEMISTRY (07/22/2020) P athologist Signature Hep B Surface Negative Negative APS SPECTRA Ag [facility] Specimen (Source) Anatomical Collection Method Collection Time Re ceived Time Location / / Volume Laterality 07/22/2020 07/23/2020 4:57 PM CDT Narrative APS SPECTRA [facility] - 07/23/2020 Unless otherwise specified, test(s) performed at: [facility], [address] [place] [address] GENERATOR OPERATOR: Alec Payan M.D. For any questions, please call customer service at FREQUENCY:MONTHLY Resulting Agency Comment Specimen source: Serum Ernie Pompa MD LAB BLOOD ORDERABLES Performing Organization Address City/State/ZIP Code Phon e Number APS SPECTRA [facility] (ABNORMAL) Spectrae Chemistry (07/22/2020) [facility] Method Time Signature BUN 58 (H) [...] 07/23/2020 Unless otherwise specified, test(s) performed at: [facility], [address] [place], [place] [id number] GENERATOR OPERATOR: Alec Payan M.D. For any questions, please call customer service at FREQUENCY:MONTHLY Resulting Agency Comment Specimen source: Serum Ernie Pompa MD LAB BLOOD ORDERABLES Performing Organization Address City/[facility] Phon e Number APS SPECTRA [facility] (ABNORMAL) Spectrae Chemistry (07/22/2020) P athologist Signature PTH 1,020 (H) 16 - 80 APS SPECTRA pg/mL [facility] Specimen (Source) Anatomical Collection Method Collection Time Re ceived Time Location / / Volume Laterality 07/22/2020 07/23/2020 3:10 PM CDT Resulting Agency Comment Specimen source: Plasma Ernie Pompa MD LAB BLOOD ORDERABLES Performing Organization Address City/[facility] Code Phon [...] 07/23/2020 Unless otherwise specified, test(s) performed at: [facility], [address] [place] [address] GENERATOR OPERATOR: Alec Payan M.D. For any questions, please call customer service at FREQUENCY:MONTHLY Resulting Agency Comment Specimen source: Blood Ernie Pompa MD LAB BLOOD ORDERABLES Performing Organization Address City/State/ZIP Code Phon e Number APS SPECTRA [facility] documented in this encounter Visit Diagnoses Not on filedocumented in this encounter
--- OUTSIDE RECORDS SUMMARY | 2021-11-18 12:38 | XMS_ITS | Encounter Summary ---
:1945 Author Organization [facility] Address [address] [place] [address] Care Team Providers Name Role Phone Unavailable Primary Care Provider Unavailable Encounter Details Date Type Department Care Team Description 07/29/2020 Orders [facility] O f Ernie Guzmán MD [address] [place] [address] [place], [place] [phone] (Wo rk) Social History Tobacco Use [...] 07/30/2020 Unless otherwise specified, test(s) performed at: [facility], [address] [place] [address] CIRCULATION MANAGER: Alec Payan M.D. For any questions, please call customer service at FREQUENCY:OTHER Resulting Agency Comment Specimen source: Blood Ernie Pompa MD LAB BLOOD ORDERABLES Performing Organization Address City/State/ZIP Code Phon e Number APS SPECTRA [facility] documented in this encounter Visit Diagnoses Not on filedocumented in this encounter
--- OUTSIDE RECORDS SUMMARY | 2021-11-18 12:38 | XMS_ITS | Encounter Summary ---
:1945 Author Organization [facility] Address [address] [place] [address] Care Team Providers Name Role Phone Unavailable Primary Care Provider Unavailable Encounter Details Date Type Department Care Team Description 06/24/2020 Orders [facility] O f Ernie Guzmán MD [address] [place] [address] [place], [place] [phone] (Wo rk) Social History Tobacco Use [...] 06/26/2020 Unless otherwise specified, test(s) performed at: [facility], [address] [place] [address] BOBJ DEVELOPER: Alec Payan M.D. For any questions, please call customer service at FREQUENCY:MONTHLY Resulting Agency Comment Specimen source: Plasma Ernie Pompa MD LAB BLOOD ORDERABLES Performing Organization Address City/[facility]/ZIP [facility] [...] 06/25/2020 Unless otherwise specified, test(s) performed at: [facility], [address] [place], [place] [id number] BOBJ DEVELOPER: Alec Payan M.D. For any questions, please call customer service at FREQUENCY:MONTHLY Resulting Agency Comment Specimen source: Plasma Ernie Pompa MD LAB BLOOD ORDERABLES Performing Organization Address City/[facility] Phon e Number APS SPECTRA [...] 06/26/2020 Unless otherwise specified, test(s) performed at: [facility], [address] [place] [address] BOBJ DEVELOPER: Alec Payan M.D. For any questions, please call customer service at FREQUENCY:MONTHLY Resulting Agency Comment Specimen source: Blood Ernie Pompa MD LAB BLOOD ORDERABLES Performing Organization Address City/[facility] Phon e Number APS SPECTRA [...] APS SPECTRA [facility] (ABNORMAL) Spectrae Chemistry (06/24/2020) [facility] Method Time Signature Ferritin 951 (H) 22 [...] 06/25/2020 Unless otherwise specified, test(s) performed at: [facility], [address] [place] [address] BOBJ DEVELOPER: Alec Payan M.D. For any questions, please call customer service at FREQUENCY:MONTHLY Resulting Agency Comment Specimen source: Serum Ernie Pompa MD LAB BLOOD ORDERABLES Performing Organization Address City/State/ZIP Code Phon e Number APS SPECTRA [facility] documented in this encounter Visit Diagnoses Not on filedocumented in this encounter
--- OUTSIDE RECORDS SUMMARY | 2021-11-18 12:38 | XMS_ITS | Encounter Summary ---
:1945 Author Organization [facility] Address [address] [place] [address] Care Team Providers Name Role Phone Unavailable Primary Care Provider Unavailable Encounter Details Date Type Department Care Team Description 08/12/2020 [facility] O f Ernie Guzmán MD [address] [place] [address] [place], [place] [phone] (Wo rk) Social History Tobacco Use [...] 08/13/2020 Unless otherwise specified, test(s) performed at: [facility], [address] [place] [address] ASSISTANT FINANCIAL ACCOUNTANT: Alec Payan M.D. For any questions, please call customer service at FREQUENCY:OTHER Resulting Agency Comment Specimen source: Blood Ernie Pompa MD LAB BLOOD ORDERABLES Performing Organization Address City/State/ZIP Code Phon e Number [facility] documented in this encounter Visit Diagnoses Not on filedocumented in this encounter
--- OUTSIDE RECORDS SUMMARY | 2021-11-18 12:38 | XMS_ITS | Encounter Summary ---
:1945 Author Organization [facility] Address [address] [place] [address] Care Team Providers Name Role Phone Unavailable Primary Care Provider Unavailable Encounter Details Date Type Department Care Team Description 07/01/2020 [facility] O f Ernie Guzmán MD [address] [place] [address] [place], [place] [phone] (Wo rk) Social History Tobacco Use [...] 07/03/2020 Unless otherwise specified, test(s) performed at: [facility], [address] [place] [address] DECORATOR HAND: Alec Payan M.D. For any questions, please call customer service at FREQUENCY:OTHER Resulting Agency Comment Specimen source: Blood Ernie Pompa MD LAB BLOOD ORDERABLES Performing Organization Address City/State/ZIP Code Phon e Number [facility] documented in this encounter Visit Diagnoses Not on filedocumented in this encounter
--- OUTSIDE RECORDS SUMMARY | 2021-11-18 12:38 | XMS_ITS | Encounter Summary ---
:1945 Author Organization [facility] Address [address] [place] [address] Care Team Providers Name Role Phone Unavailable Primary Care Provider Unavailable Encounter Details Date Type Department Care Team Description 05/20/2020 [facility] O f Ernie Guzmán MD [phone] [place] [address] [place], [place] [phone] (Wo rk) Social History Tobacco Use [...] Volume Laterality 05/20/2020 05/21/2020 10:4 9 PM INTERNATIONAL EXCHANGE COORDINATOR Resulting Agency Comment Specimen source: Plasma [...] Volume Laterality 05/20/2020 05/21/2020 10:4 8 PM INTERNATIONAL EXCHANGE COORDINATOR Narrative [facility] - 05/22/2020 Unless otherwise specified, test(s) performed at: [facility], [address] [place] [address] OUTCOME ANALYST: Alec Payan M.D. For any questions, [...] / Volume Laterality 05/20/2020 05/21/2020 6:17 PM INTERNATIONAL EXCHANGE COORDINATOR Narrative [facility] - 05/22/2020 Unless otherwise specified, test(s) performed at: [facility], [address] [place] [address] OUTCOME ANALYST: Alec Payan M.D. For any questions, [...] / Volume Laterality 05/20/2020 05/21/2020 4:04 PM INTERNATIONAL EXCHANGE COORDINATOR Narrative [facility] - 05/22/2020 Unless otherwise specified, test(s) performed at: [place] [address] OUTCOME ANALYST: Alec Payan M.D. For any questions, [...] / Volume Laterality 05/20/2020 05/21/2020 4:04 PM INTERNATIONAL EXCHANGE COORDINATOR Narrative [facility] - 05/22/2020 Unless otherwise specified, test(s) performed at: [facility], [address] [place] [address] OUTCOME ANALYST: Alec Payan M.D. For any questions, please call customer service at FREQUENCY:MONTHLY Resulting Agency Comment Specimen source: Blood Ernie Pompa MD LAB BLOOD ORDERABLES Performing Organization Address City/State/ZIP Code Phon e Number [facility] (ABNORMAL) [facility]rae Chemistry (05/20/2020) [facility] gist Method Time Signature BUN 56 (H) [...] / Volume Laterality 05/20/2020 05/21/2020 6:17 PM INTERNATIONAL EXCHANGE COORDINATOR Narrative [facility] - 05/21/2020 Unless otherwise specified, test(s) performed at: [facility], [address] [place] [address] OUTCOME ANALYST: Alec Payan M.D. For any questions, please call customer service at FREQUENCY:MONTHLY Resulting Agency Comment Specimen source: Serum Ernie Pompa MD LAB BLOOD ORDERABLES Performing Organization Address City/State/ZIP Code Phon e Number [facility] documented in this encounter Visit Diagnoses Not on filedocumented in this encounter
--- OUTSIDE RECORDS SUMMARY | 2021-11-18 12:38 | XMS_ITS | Encounter Summary ---
:1945 Author Organization [facility] Address [address] [place] [address] Care Team Providers Name Role Phone Unavailable Primary Care Provider Unavailable Encounter Details Date Type Department Care Team Description 06/03/2020 [facility] O f Ernie Guzmán MD [address] [place] [address] [place], [place] [phone] (Wo rk) Social History Tobacco Use [...] 06/04/2020 Unless otherwise specified, test(s) performed at: [facility], [address] [place] [address] SUGAR CANE GROWER: Alec Payan M.D. For any questions, please call customer service at FREQUENCY:OTHER Resulting Agency Comment Specimen source: Blood Ernie Pompa MD LAB BLOOD ORDERABLES Performing Organization Address City/State/ZIP Code Phon e Number [facility] documented in this encounter Visit Diagnoses Not on filedocumented in this encounter
--- OUTSIDE RECORDS SUMMARY | 2021-11-18 12:38 | XMS_ITS | Encounter Summary ---
:1945 Author Organization [facility] Address [address] [place] [address] Care Team Providers Name Role Phone Unavailable Primary Care Provider Unavailable Encounter Details Date Type Department Care Team Description 08/26/2020 [facility] O f Ernie Guzmán MD [address] [place] [address] [place], [place] [phone] (Wo rk) Social History Tobacco Use [...] 08/27/2020 Unless otherwise specified, test(s) performed at: [facility], [address] [place] [address] PASTEURISER OPERATOR: Alec Payan M.D. For any questions, please call customer service at FREQUENCY:OTHER Resulting Agency Comment Specimen source: Blood Ernie Pompa MD LAB BLOOD ORDERABLES Performing Organization Address City/State/ZIP Code Phon e Number [facility] documented in this encounter Visit Diagnoses Not on filedocumented in this encounter
--- OUTSIDE RECORDS SUMMARY | 2021-11-18 12:38 | XMS_ITS | Encounter Summary ---
:1945 Author Organization [facility] Address [address] [place] [address] Care Team Providers Name Role Phone Unavailable Primary Care Provider Unavailable Encounter Details Date Type Department Care Team Description 09/09/2020 [facility] O f Ernie Guzmán MD [address] [place] [address] [place], [place] [phone] (Wo rk) Social History Tobacco Use [...] 09/11/2020 Unless otherwise specified, test(s) performed at: [facility], [address] [place] [address] DIRECTOR OF PRODUCT MARKETING: Alec Payan M.D. For any questions, please call customer service at FREQUENCY:OTHER Resulting Agency Comment Specimen source: Blood Ernie Pompa MD LAB BLOOD ORDERABLES Performing Organization Address City/State/ZIP Code Phon e Number [facility] documented in this encounter Visit Diagnoses Not on filedocumented in this encounter
--- OUTSIDE RECORDS SUMMARY | 2021-11-18 12:38 | XMS_ITS | Encounter Summary ---
:1945 Author Organization [facility] Address [address] [place] [address] Care Team Providers Name Role Phone Unavailable Primary Care Provider Unavailable Encounter Details Date Type Department Care Team Description 05/27/2020 [facility] O f Ernie Guzmán MD [address] [place] [address] [place], [place] [phone] (Wo rk) Social History Tobacco Use [...] / Volume Laterality 05/27/2020 05/28/2020 6:29 PM SLIDE FORMING MACHINE TENDER Narrative [facility] - 05/28/2020 Unless otherwise specified, test(s) performed at: [facility], [address] [place] [address] LDR RN: Alec Payan M.D. For any questions, please call customer service at FREQUENCY:OTHER Resulting Agency Comment Specimen source: Blood Ernie Pompa MD LAB BLOOD ORDERABLES Performing Organization Address City/State/ZIP Code Phon e Number [facility] documented in this encounter Visit Diagnoses Not on filedocumented in this encounter
--- OUTSIDE RECORDS SUMMARY | 2021-11-18 12:38 | XMS_ITS | Encounter Summary ---
:1945 Author Organization [facility] Address [address] [place] [address] Care Team Providers Name Role Phone Unavailable Primary Care Provider Unavailable Encounter Details Date Type Department Care Team Description 07/01/2020 Treatment [facility] O f Ernie Guzmán MD [address] [place] [address] [place], [place] [phone] (Wo rk) Social History Tobacco Use Types Packs/Day Years Used Date Smoking Tobacco: Unknown Comments: Smoking History Info:Patient n ot screened Sex Assigned at Date Recorded Not on file documented as of this encounter Miscellaneous Notes Dialysis Note - Ernie Pompa MD - 07/01/2020 11:18 AM CDT Date: Jul 01, 2020 Patient Name: Shaun Ocampo : 1945 Chart #: [id number] Sex: M This patient was personally seen [...] AM ) BP (sit): 115/74 AP(-) / INKING MACHINE TENDER: 251/198 Pulse: 66 Chairside data as of [...] Every 2 weeks During Dialysis 06/24/2020 06/23/2021 DIRECTOR COMMERCIAL SALES: Ernie Pompa MD LOCATION: [phone] SCHEDULE: M-W-F 2nd Shift EDW: kg. DIALYZER: HD DURATION: NEEDLE SIZE: ANTICOAG: BATH: QB: ml/min QD: ml/min Subjective Tolerating dialysis well. 07/01: Doing well, feels great. Big problem is fluid gains, discussed in great detail again today. 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 06/10: Doing well overall, no new complaints, [...] Went to Urgent care -> ER in [place] yesterday,CT with R hydro but no obstructive [...] prescription. Vascular Access Assessment Type of access: [id number]/2019 Surgeon - Lary KUMARW Access working well [...] at goal. Intact PTH is above goal. Hoe Runner will adjust binders and vitamin D per [...] on dialysis. Schedule UF run extra at [place] when available. Hold Hep day before and [...]
--- OUTSIDE RECORDS SUMMARY | 2021-11-18 12:38 | XMS_ITS | Encounter Summary ---
:1945 Author Organization [facility] Address [address] [place] [address] Care Team Providers Name Role Phone Unavailable Primary Care Provider Unavailable Encounter Details Date Type Department Care Team Description 08/19/2020 [facility] O f Ernie Guzmán MD [address] [place] [address] [place], [place] [phone] (Wo rk) Social History Tobacco Use [...] Performing Organization Address City/[facility]/ZIP Code Phon e Number [facility] POST CHEMISTRY (08/19/2020) athologist Signature BUN Post 11 6 - 19 APS SPECT[facility] Dialysis mg/dL [facility] Specimen (Source) Anatomical Collection Method Collection Time Re ceived Time Location / / Volume Laterality 08/19/2020 08/21/2020 12:3 5 PM CDT Narrative [facility] - 08/22/2020 Unless otherwise specified, test(s) performed at: [facility], [address] [place] [address] HYDROELECTRIC PLANT MAINTAINER: Alec Payan M.D. For any questions, please call customer service at FREQUENCY:MONTHLY Resulting Agency Comment Specimen source: Plasma Ernie Pompa MD LAB BLOOD ORDERABLES Performing Organization Address City/[facility]/ZIP Code Phon e Number [facility] (ABNORMAL) [facility] Chemistry (08/19/2020) [facility] Method Time Signature BUN 49 [...] 08/22/2020 Unless otherwise specified, test(s) performed at: [facility], [address] [place] [address] HYDROELECTRIC PLANT MAINTAINER: Alec Payan M.D. For any questions, [...] 08/21/2020 Unless otherwise specified, test(s) performed at: [facility], [address] [place] [address] HYDROELECTRIC PLANT MAINTAINER: Alec Payan M.D. For any questions, please call customer service at FREQUENCY:MONTHLY Resulting Agency Comment Specimen source: Plasma Ernie Pompa MD LAB BLOOD ORDERABLES Performing Organization Address City/[facility] Phon e Number APS SPECTRA [...] 08/21/2020 Unless otherwise specified, test(s) performed at: [facility], [address] [place] [address] HYDROELECTRIC PLANT MAINTAINER: Alec Payan M.D. For any questions, please call customer service at FREQUENCY:MONTHLY Resulting Agency Comment Specimen source: Serum Ernie Pompa MD LAB BLOOD ORDERABLES Performing Organization Address [facility] Phon e Number APS SPECTRA [...] 08/21/2020 Unless otherwise specified, test(s) performed at: [facility], [address] [place] [address] HYDROELECTRIC PLANT MAINTAINER: Alec Payan M.D. For any questions, please call customer service at FREQUENCY:MONTHLY Resulting Agency Comment Specimen source: Blood Ernie Pompa MD LAB BLOOD ORDERABLES Performing Organization Address City/State/ZIP Code Phon e Number [facility] documented in this encounter Visit Diagnoses Not on filedocumented in this encounter
--- OUTSIDE RECORDS SUMMARY | 2021-11-18 12:38 | XMS_ITS | Encounter Summary ---
:1945 Author Organization [facility] Address [address] [place] [address] Care Team Providers Name Role Phone Unavailable Primary Care Provider Unavailable Encounter Details Date Type Department Care Team Description 07/22/2020 Treatment [facility] O f Ernie Gzumán MD [address] [place] [address] [place], [place] [phone] (Wo rk) Social History Tobacco Use Types Packs/Day Years Used Date Smoking Tobacco: Unknown Comments: Smoking History Info:Patient n ot screened Sex Assigned at Date Recorded Not on file documented as of this encounter Miscellaneous Notes Dialysis Note - Ernie Pompa MD - 07/22/2020 10:25 AM CDT Date: July 22, 2020 Patient Name: Shaun Ocampo : 1945 Chart #: [id number] Sex: M This patient was personally seen [...] AM ) BP (sit): 139/55 AP(-) / CHIEF MERCHANDISING OFFICER: 262/224 Pulse: 69 Chairside data as of [...] Every 4 weeks During Dialysis 07/08/2020 07/07/2021 AESTHETICIAN: Ernie Pompa MD LOCATION: [phone] SCHEDULE: M-W-F 2nd Shift EDW: kg. DIALYZER: [...] for ureteral ?tumor early next month in [place]. 06/10: Doing well overall, no new complaints, [...] Went to Urgent care -> ER in [place] yesterday,CT with R hydro but no obstructive [...] feels quite well, was out on 4 hoguh yesterday in the nice weather and has [...] prescription. Vascular Access Assessment Type of access: [id number]/2019 Surgeon - Lary KUMARW Access working well [...] at goal. Intact PTH is above goal. Boiler Coverer Helper will adjust binders and vitamin D [...]
--- OUTSIDE RECORDS SUMMARY | 2021-11-18 12:38 | XMS_ITS | Encounter Summary ---
:1945 Author Organization [facility] Address [address] [place] [address] Care Team Providers Name Role Phone Unavailable Primary Care Provider Unavailable Encounter Details Date Type Department Care Team Description 07/08/2020 Treatment [facility] O Ernie Gómez MD [address] [place] [address] [place], [place] [phone] [phone] (Wo rk) Social History Tobacco Use Types Packs/Day Years Used Date Smoking Tobacco: Unknown Comments: Smoking History Info:Patient n ot screened Sex Assigned at Date Recorded Not on file documented as of this encounter Miscellaneous Notes Dialysis Note - Ernie Pompa MD - 07/08/2020 9:33 AM CDT Date: Jul 08, 2020 Patient Name: Shaun Ocampo : 1945 Chart #: [id number] Sex: M This patient was personally seen [...] Flow > 1999 > 1999 > 1999 PIECE WORK CHECKER: Ernie Pompa MD LOCATION: [place] [phone] SCHEDULE: 2nd Shift ACCESS: EDW: kg. DIALYZER: [...] for ureteral ?tumor early next month in [place]. 06/10: Doing well overall, no new complaints, [...] Went to Urgent care -> ER in [place] yesterday,CT with R hydro but no obstructive [...] He had infiltration last week, dialyzed at [facility] on Sat and went well, access [...] (04/22/20) Vascular Access Assessment: Type of access: [email or web address]/2019 Surgeon - Lary GARDNER Access working well [...]
--- OUTSIDE RECORDS SUMMARY | 2021-11-18 12:38 | XMS_ITS | Encounter Summary ---
:1945 Author Organization [facility] Address [address] [place] [address] Care Team Providers Name Role Phone Unavailable Primary Care Provider Unavailable Encounter Details Date Type Department Care Team Description 09/09/2020 Treatment [facility] O f Ernie Guzmán MD [address] [place] [address] [place], [place] [address] [phone] (Wo rk) Social History Tobacco Use Types Packs/Day Years Used Date Smoking Tobacco: Unknown Comments: Smoking History Info:Patient n ot screened Sex Assigned at Date Recorded Not on file documented as of this encounter Miscellaneous Notes Dialysis Note - Ernie Pompa MD - 09/09/2020 10:22 AM CDT Date: Sep 09, 2020 Patient Name: Shaun Ocampo : 1945 Chart #: [id number] Sex: M This patient was personally seen [...] AM ) BP (sit): 116/58 AP(-) / STUNT DOUBLE: 242/201 Pulse: 71 Chairside data as of [...] 06/26/2020 Access Flow 1772 1359 > 2000 FOOD SAFETY COORDINATOR: Ernie Pompa MD LOCATION: [place] [phone] SCHEDULE: -- 2nd Shift ACCESS: EDW: kg. [...] for ureteral ?tumor early next month in [place]. 06/10: Doing well overall, no new complaints, [...] Went to Urgent care -> ER in [place] yesterday,CT with R hydro but no obstructive [...] He had infiltration last week, dialyzed at [facility] on Sat and went well, access [...] (06/24/20) Vascular Access Assessment: Type of access: [email or web address]/2019 Surgeon - Lary GARDNER Access working well [...]
--- OUTSIDE RECORDS SUMMARY | 2021-11-18 12:38 | XMS_ITS | Encounter Summary ---
:1945 Author Organization [facility] Address [address] [place] [address] Care Team Providers Name Role Phone Unavailable Primary Care Provider Unavailable Encounter Details Date Type Department Care Team Description 05/27/2020 Treatment [facility] O Ernie Gómez MD [address] [place] [address] [place], [place] [phone] [phone] (Wo rk) Social History Tobacco Use Types Packs/Day Years Used Date Smoking Tobacco: Unknown Comments: Smoking History Info:Patient n ot screened Sex Assigned at Date Recorded Not on file documented as of this encounter Miscellaneous Notes Dialysis Note - Ernie Pompa MD - 05/27/2020 12:29 PM CST Date: May 27, 2020 Patient Name: Shaun Ocampo : 1945 Chart #: [id number] Sex: M This patient was personally seen [...] AM ) BP (sit): 122/55 AP(-) / FISH WORM GROWER: 234/221 Pulse: 72 Chairside data as of [...] 4 weeks During Dialysis 04/15/2020 04/14/2021 MACHINE BUFFER: Ernie Pompa MD LOCATION: [phone] SCHEDULE: M-W-F 2nd Shift EDW: kg. DIALYZER: [...] Went to Urgent care -> ER in [place] yesterday,CT with R hydro but no obstructive [...] prescription. Vascular Access Assessment Type of access: [id number]/2019 Surgeon - Lary GARDNER Access working well [...] above goal. Intact PTH is above goal. Chips Screen Tender will adjust binders and vitamin D [...]
--- OUTSIDE RECORDS SUMMARY | 2021-11-18 12:38 | XMS_ITS | Encounter Summary ---
:1945 Author Organization [facility] Address [address] [place] [address] Care Team Providers Name Role Phone Unavailable Primary Care Provider Unavailable Encounter Details Date Type Department Care Team Description 2020 Treatment [facility] O f Ernie uGzmán MD [address] [place] [address] [place], [place] [phone] (Wo rk) Social History Tobacco Use Types Packs/Day Years Used Date Smoking Tobacco: Unknown Comments: Smoking History Info:Patient n ot screened Sex Assigned at Date Recorded Not on file documented as of this encounter Miscellaneous Notes Dialysis Note - Ernie Pompa MD - 2020 10:59 AM CDT Date: 2020 Patient Name: Shaun Ocampo : 1945 Chart #: [id number] Sex: M This patient was personally seen for a basic visit as part of routine weekly dialysis care. A reviewof the dialysis treatment, blood pressure, estimated dry weight and recent lab values was made. These were discussed with the patient and staff as necessary. CLOTH MEASURER MACHINE: Ernie Pompa MD LOCATION: [phone] SCHEDULE: M-W-F 2nd Shift ACCESS: EDW: kg. [...] for ureteral ?tumor early next month in [place]. 06/10: Doing well overall, no new complaints, [...] Went to Urgent care -> ER in [place] yesterday,CT with R hydro but no obstructive [...] He had infiltration last week, dialyzed at [facility] on Sat and went well, [...] (05/20/20) Vascular Access Assessment: Type of access: [id number]/2019 Surgeon - Lary GARDNER Access working well Impression and Plan No changes in prescription Discussed fluid gains, possible need for increased time on HD but he really wants to avoid more [id number]. Discussed possible need for extra treatments occasionally [...]
--- OUTSIDE RECORDS SUMMARY | 2021-11-18 12:39 | XMS_ITS | Encounter Summary ---
:1945 Author Organization [facility] Address [address] [place] [address] Care Team Providers Name Role Phone Unavailable Primary Care Provider Unavailable Encounter Details Date Type Department Care Team Description 01/08/2020 Orders [facility] O f Ernie Guzmán MD [address] [place] [address] [place], [place] [phone] (Wo rk) Social History Tobacco Use [...] 01/09/2020 Unless otherwise specified, test(s) performed at: [facility], [address] [place] [address] RADIOLOGIC ELECTRONIC SPECIALIST: Alec Payan M.D. For any questions, please call customer service at FREQUENCY:OTHER Resulting Agency Comment Specimen source: Blood Ernie Pompa MD LAB BLOOD ORDERABLES Performing Organization Address City/State/ZIP Code Phon e Number [facility] documented in this encounter Visit Diagnoses Not on filedocumented in this encounter
--- OUTSIDE RECORDS SUMMARY | 2021-11-18 12:39 | XMS_ITS | Encounter Summary ---
:1945 Author Organization [facility] Address [address] [place] [address] Care Team Providers Name Role Phone Unavailable Primary Care Provider Unavailable Encounter Details Date Type Department Care Team Description 04/29/2020 Orders Only [facility] O f Ernie Guzmán MD [address] [place] [address] [place], [place] [phone] (Wo rk) Social History Tobacco Use [...] / Volume Laterality 04/29/2020 05/01/2020 2:20 PM DIRECTOR ELECTRICAL ENGINEERING Narrative [facility] - 05/01/2020 Unless otherwise specified, test(s) performed at: [facility], [address] [place] [address] MARKETING BUSINESS ANALYST: Alec Payan M.D. For any questions, please call customer service at FREQUENCY:OTHER Resulting Agency Comment Specimen source: Blood Ernie Pompa MD LAB BLOOD ORDERABLES Performing Organization Address City/State/ZIP Code Phon e Number [facility] documented in this encounter Visit Diagnoses Not on filedocumented in this encounter
--- OUTSIDE RECORDS SUMMARY | 2021-11-18 12:39 | XMS_ITS | Encounter Summary ---
:1945 Author Organization [facility] Address [address] [place] [address] Care Team Providers Name Role Phone Unavailable Primary Care Provider Unavailable Encounter Details Date Type Department Care Team Description 01/29/2020 Treatment [facility] O Ernie Gómez MD [address] [place] [address] [place], [place] [phone] [phone] (Wo rk) Social History Tobacco Use Types Packs/Day Years Used Date Smoking Tobacco: Unknown Comments: Smoking History Info:Patient n ot screened Sex Assigned at Date Recorded Not on file documented as of this encounter Miscellaneous Notes Dialysis Note - Ernie Pompa MD - 01/29/2020 9:56 AM CST Date: Jan 29, 2020 Patient Name: Shaun Ocampo : 1945 Chart #: [id number] Sex: M This patient was personally seen [...] AM ) BP (sit): 133/53 AP(-) / LIQUOR INSPECTOR: 267/328 Pulse: 71 Chairside data as of [...] Every 2 weeks During Dialysis 01/22/2020 01/20/2021 WILDLIFE AND GAME PROTECTOR: Ernie Pompa MD LOCATION: [facility] [phone] SCHEDULE: M-W-F 2nd Shift ACCESS: EDW: kg. [...] (07/24/19) Vascular Access Assessment: Type of access: [id number]/2019 Surgeon - Lary GARDNER Access working well [...]
--- OUTSIDE RECORDS SUMMARY | 2021-11-18 12:39 | XMS_ITS | Encounter Summary ---
:1945 Author Organization [facility] Address [address] [place] [address] Care Team Providers Name Role Phone Unavailable Primary Care Provider Unavailable Encounter Details Date Type Department Care Team Description 03/04/2020 Treatment [facility] O Ernie Gómez MD [address] [place] [address] [place], [place] [phone] [phone] (Wo rk) Social History Tobacco Use Types Packs/Day Years Used Date Smoking Tobacco: Unknown Comments: Smoking History Info:Patient n ot screened Sex Assigned at Date Recorded Not on file documented as of this encounter Miscellaneous Notes Dialysis Note - Ernie Pompa MD - 03/04/2020 9:33 AM CST Date: Mar 04, 2020 Patient Name: Shaun Ocampo : 1945 Chart #: [id number] Sex: M This patient was personally seen [...] AM ) BP (sit): 95/48 AP(-) / LUBE TECHNICIAN: 248/204 Pulse: 71 Chairside data as of [...] Every 4 weeks During Dialysis 02/12/2020 02/10/2021 CONSTRUCTION FOREMAN: Ernie Pompa MD LOCATION: [facility] [phone] SCHEDULE: M-W- 2nd Shift ACCESS: EDW: kg. [...] (07/24/19) Vascular Access Assessment: Type of access: [id number]/2019 Surgeon - Lary GARDNER Access working well [...]
--- OUTSIDE RECORDS SUMMARY | 2021-11-18 12:39 | XMS_ITS | Encounter Summary ---
:1945 Author Organization [facility] Address [address] [place] [address] [address]kw[address] [place] [address] Care Team Providers Name Role Phone Unavailable Primary Care Provider Unavailable Encounter Details Date Type Department Care Team Description 02/26/2020 Orders Only [facility] O f Ernie Guzmán MD [address] [place] [address] [place], [place] [phone] (Wo rk) Social History Tobacco Use [...] / Volume Laterality 02/26/2020 02/27/2020 2:55 PM COAT AGENT Narrative [facility] - 02/27/2020 Unless otherwise specified, test(s) performed at: [facility], [address] [place] [address] CASTING MACHINE SERVICE OPERATOR: Alec Payan M.D. For any questions, please call customer service at FREQUENCY:OTHER Resulting Agency Comment Specimen source: Blood Ernie Pompa MD LAB BLOOD ORDERABLES Performing Organization Address City/State/ZIP Code Phon e Number [facility] documented in this encounter Visit Diagnoses Not on filedocumented in this encounter
--- OUTSIDE RECORDS SUMMARY | 2021-11-18 12:39 | XMS_ITS | Encounter Summary ---
:1945 Author Organization [facility] Address [address] [place] [address] Care Team Providers Name Role Phone Unavailable Primary Care Provider Unavailable Encounter Details Date Type Department Care Team Description 04/01/2020 Orders Only [facility] O f Ernie Guzmán MD [address] [place] [address] [place], [place] [phone] (Wo rk) Social History Tobacco Use [...] / Volume Laterality 04/01/2020 04/02/2020 2:28 PM NEW CAR SALESPERSON Narrative [facility] - 04/02/2020 Unless otherwise specified, test(s) performed at: [facility], [address] [place] [address] CRISIS INTERVENTION SPECIALIST: Alec Payan M.D. For any questions, please call customer service at FREQUENCY:OTHER Resulting Agency Comment Specimen source: Blood Ernie Pompa MD LAB BLOOD ORDERABLES Performing Organization Address City/State/ZIP Code Phon e Number [facility] documented in this encounter Visit Diagnoses Not on filedocumented in this encounter
--- OUTSIDE RECORDS SUMMARY | 2021-11-18 12:39 | XMS_ITS | Encounter Summary ---
:1945 Author Organization [facility] Address [address] [place] [address] Care Team Providers Name Role Phone Unavailable Primary Care Provider Unavailable Encounter Details Date Type Department Care Team Description 04/08/2020 Orders [facility] O f Ernie Guzmán MD [address] [place] [address] [place], [place] [phone] (Wo rk) Social History Tobacco Use [...] / Volume Laterality 04/08/2020 04/09/2020 2:20 PM QUALITY REVIEW TRAINER Narrative [facility] - 04/09/2020 Unless otherwise specified, test(s) performed at: [facility], [address] [place] [address] APARTMENT GROUNDSKEEPER: Alec Payan M.D. For any questions, please call customer service at FREQUENCY:OTHER Resulting Agency Comment Specimen source: Blood Ernie Pompa MD LAB BLOOD ORDERABLES Performing Organization Address City/State/ZIP Code Phon e Number [facility] documented in this encounter Visit Diagnoses Not on filedocumented in this encounter
--- OUTSIDE RECORDS SUMMARY | 2021-11-18 12:39 | XMS_ITS | Encounter Summary ---
:1945 Author Organization [facility] Address [address] [place] [address] Care Team Providers Name Role Phone Unavailable Primary Care Provider Unavailable Encounter Details Date Type Department Care Team Description 02/19/2020 Orders [facility] O f Ernie Guzmán MD [address] [place] [address] [place], [place] [phone] (Wo rk) Social History Tobacco Use [...] / Volume Laterality 02/19/2020 02/20/2020 6:44 PM LABORER TURKEY FARM Resulting Agency Comment Specimen source: Plasma Ernie Pompa MD LAB BLOOD ORDERABLES Performing Organization Address City/State/ZIP Code Phon e Number [facility] POST CHEMISTRY (02/19/2020) P athologist Signature BUN Post 13 6 - 19 [facility] Dialysis mg/dL [facility] Specimen (Source) Anatomical Collection Method Collection Time Re ceived Time Location / / Volume Laterality 02/19/2020 02/20/2020 6:39 PM LABORER [employer]URKEY [employer]ARM Narrative [facility] - 02/21/2020 Unless otherwise specified, test(s) performed at: [facility], [address] [place] [address] ADVERTISING SUPERVISOR: Alec Payan M.D. For any questions, please call customer service at FREQUENCY:MONTHLY Resulting Agency Comment Specimen source: Plasma Ernie Pompa MD LAB BLOOD ORDERABLES Performing Organization Address City/[facility] [place]/ZIP Code Phon e Number APS SPECTRA [...] Volume Laterality 02/19/2020 02/20/2020 10:1 5 AM LABORER TURKEY [employer]ARM Narrative [facility] - 02/20/2020 Unless otherwise specified, test(s) performed at: [facility], [address] [place], [place] [id number] ADVERTISING SUPERVISOR: Alec Payan M.D. For any questions, [...] Volume Laterality 02/19/2020 02/20/2020 10:4 6 AM LABORER [employer] Resulting Agency Comment Specimen source: Serum [...] Volume Laterality 02/19/2020 02/20/2020 10:4 6 AM LABORER [employer]UR[employer]ARM Narrative [facility] - 02/20/2020 Unless otherwise specified, test(s) performed at: [facility], [address] [place] [address] ADVERTISING SUPERVISOR: Alec Payan M.D. For any questions, please call customer service at FREQUENCY:MONTHLY Resulting Agency Comment Specimen source: Serum Ernie Pompa MD LAB BLOOD ORDERABLES Performing Organization Address City/State/ZIP Code Phon e Number [facility] documented in this encounter Visit Diagnoses Not on filedocumented in this encounter
--- OUTSIDE RECORDS SUMMARY | 2021-11-18 12:39 | XMS_ITS | Encounter Summary ---
:1945 Author Organization [facility] Address [address] [place] [address] Care Team Providers Name Role Phone Unavailable Primary Care Provider Unavailable Encounter Details Date Type Department Care Team Description 01/01/2020 Orders [facility] O f Ernie Guzmán MD [address] [place] [address] [place], [place] [phone] (Wo rk) Social History Tobacco Use [...] Of [place]/ZIP Code Phon e Number [facility] (01/01/2020) P athologist Signature % Urea 77 65 - 80 % [facility] Reduction [facility] Specimen (Source) Anatomical Collection Method Collection Time Re ceived Time Location / / Volume Laterality 01/01/2020 01/02/2020 6:37 PM CDT Narrative [facility] - 01/02/2020 Unless otherwise specified, test(s) performed at: [facility], [address] [place] [address] PHYSICAL SCIENCE TEACHER: Alec Payan M.D. For any questions, please call customer service at FREQUENCY:OTHER Resulting Agency Comment Specimen source: Serum Ernie Pompa MD LAB BLOOD ORDERABLES Performing Organization Address [facility] Phon e Number [facility] (ABNORMAL) Spectrae Chemistry (01/01/2020) P athologist Signature BUN 53 (H) 6 - 19 [facility] mg/dL [facility] Specimen (Source) Anatomical Collection Method Collection Time Re ceived Time Location / / Volume Laterality 01/01/2020 01/02/2020 6:36 PM CDT Narrative [facility] - 01/02/2020 Unless otherwise specified, test(s) performed at: [facility], [address] [place], [place] [id number] PHYSICAL SCIENCE TEACHER: Alec Payan M.D. For any questions, please call customer service at FREQUENCY:OTHER Resulting Agency Comment Specimen source: Serum Ernie Pompa MD LAB BLOOD ORDERABLES Performing Organization Address City/[facility] Phon e Number APS [...] 01/02/2020 Unless otherwise specified, test(s) performed at: [facility], [address] [place] [address] PHYSICAL SCIENCE TEACHER: Alec Payan M.D. For any questions, please call customer service at FREQUENCY:OTHER Resulting Agency Comment Specimen source: Blood Ernie Pompa MD LAB BLOOD ORDERABLES Performing Organization Address City/State/[facility] Code Phon e Number [facility] POST CHEMISTRY (01/01/2020) P athologist Signature BUN Post 12 6 - 19 [facility] Dialysis mg/dL [facility] Specimen (Source) Anatomical Collection Method Collection Time Re ceived Time Location / / Volume Laterality 01/01/2020 01/02/2020 2:30 PM CDT Narrative [facility] - 01/02/2020 Unless otherwise specified, test(s) performed at: [facility], [address] [place] [address] PHYSICAL SCIENCE TEACHER: Alec Payan M.D. For any questions, please call customer service at FREQUENCY:OTHER Resulting Agency Comment Specimen source: Plasma Ernie Pompa MD LAB BLOOD ORDERABLES Performing Organization Address City/State/[facility] Code Phon e Number [facility] documented in this encounter Visit Diagnoses Not on filedocumented in this encounter
--- OUTSIDE RECORDS SUMMARY | 2021-11-18 12:39 | XMS_ITS | Encounter Summary ---
:1945 Author Organization [facility] Address [address] [place] [address] Care Team Providers Name Role Phone Unavailable Primary Care Provider Unavailable Encounter Details Date Type Department Care Team Description 02/19/2020 Treatment [facility] O Ernie Gómez MD [address] [place] [address] [place], [place] [phone] [phone] (Wo rk) Social History Tobacco Use Types Packs/Day Years Used Date Smoking Tobacco: Unknown Comments: Smoking History Info:Patient n ot screened Sex Assigned at Date Recorded Not on file documented as of this encounter Miscellaneous Notes Dialysis Note - Ernie Pompa MD - 02/19/2020 10:37 AM CST Date: Feb 19, 2020 Patient Name: Shaun Ocampo : 1945 Chart #: [id number] Sex: M This patient was personally seen [...] AM ) BP (sit): 104/47 AP(-) / SENIOR COMMERCIAL LOAN OFFICER: 260/215 Pulse: 84 Chairside data as of [...] Every 4 weeks During Dialysis 02/12/2020 02/10/2021 ROOFER: Ernie Pompa MD LOCATION: [facility] [phone] SCHEDULE: M-W-F 2nd Shift EDW: kg. DIALYZER: [...] prescription. Vascular Access Assessment Type of access: [id number]/2019 Surgeon Annita KUMARW Access working well Anemia [...] above goal. Intact PTH is at goal. Cashier Credit will adjust binders and vitamin D per [...]
--- OUTSIDE RECORDS SUMMARY | 2021-11-18 12:39 | XMS_ITS | Encounter Summary ---
:1945 Author Organization [facility] Address [address] [place] [address] Care Team Providers Name Role Phone Unavailable Primary Care Provider Unavailable Encounter Details Date Type Department Care Team Description 01/22/2020 Treatment [facility] O Ernie Gómez MD [address] [place] [address] [place], [place] [phone] (Wo rk) Social History Tobacco Use Types Packs/Day Years Used Date Smoking Tobacco: Unknown Comments: Smoking History Info:Patient n ot screened Sex Assigned at Date Recorded Not on file documented as of this encounter Miscellaneous Notes Dialysis Note - Ernie Pompa MD - 01/22/2020 9:00 AM CST Date: Jan 22, 2020 Patient Name: Shaun Ocampo : 1945 Chart #: [id number] Sex: M This patient was personally seen [...] AM ) BP (sit): 139/67 AP(-) / CRYPTOLOGIST: n/a Pulse: 72 Chairside data as of [...] Every 2 weeks During Dialysis 01/22/2020 01/20/2021 PUBLIC RECORDS RESEARCHER: Ernie Pompa MD LOCATION: [facility] [phone] SCHEDULE: M-W-F 2nd Shift EDW: kg. DIALYZER: [...] prescription. Vascular Access Assessment Type of access: [id number]/2019 Surgeon - Lary KUMARW Access working well [...] above goal. Intact PTH is at goal. Geodesist will adjust binders and vitamin D per [...]
--- OUTSIDE RECORDS SUMMARY | 2021-11-18 12:39 | XMS_ITS | Encounter Summary ---
:1945 Author Organization [facility] Address [address] [place] [address] Care Team Providers Name Role Phone Unavailable Primary Care Provider Unavailable Encounter Details Date Type Department Care Team Description 01/08/2020 Treatment [facility] O Ernie Gómez MD [address] [place] [address] [place], [place] [phone] (Wo rk) Social History Tobacco Use Types Packs/Day Years Used Date Smoking Tobacco: Unknown Comments: Smoking History Info:Patient n ot screened Sex Assigned at Date Recorded Not on file documented as of this encounter Miscellaneous Notes Dialysis Note - Ernie Pompa MD - 01/08/2020 12:11 PM CDT Date: Jan 08, 2020 Patient Name: Shaun Ocampo : 1945 Chart #: [id number] Sex: M This patient was personally seen [...] PM ) BP (sit): 118/58 AP(-) / ROLL BUCKER: 261/204 Pulse: 66 Chairside data as of [...] IVP 1X Week During Dialysis 10/28/2019 10/19/2020 FILTER TIP CATCHER: Ernie Pompa MD LOCATION: [phone] SCHEDULE: -W- 2nd Shift ACCESS: EDW: kg. [...] He had infiltration last week, dialyzed at [facility] on Sat and went well, access ok [...] (07/24/19) Vascular Access Assessment: Type of access: [id number]/2019 Surgeon - Lary GARDNER Access working well Impression and Plan No changes, stable dialysis Ernie Pompa MD [ Signed And locked electronically On 01/08/2020 at 12:12:00 PM ] Transcribed: Ernie Pompa ( 01/08/2020 ) documented in this encounter Plan of Treatment Not on filedocumented as of this encounter Visit Diagnoses Not on filedocumented in this encounter
--- OUTSIDE RECORDS SUMMARY | 2021-11-18 12:39 | XMS_ITS | Encounter Summary ---
:1945 Author Organization [facility] Address [address] [place] [address] Care Team Providers Name Role Phone Unavailable Primary Care Provider Unavailable Encounter Details Date Type Department Care Team Description 05/06/2020 Orders Only [facility] O f Ernie Guzmán MD [address] [place] [address] [place], [place] [phone] (Wo rk) Social History Tobacco Use [...] / Volume Laterality 05/06/2020 05/07/2020 2:32 PM OCCUPATIONAL MEDICINE OFFICER Narrative [facility] - 05/07/2020 Unless otherwise specified, test(s) performed at: [facility], [address] [place] [address] EVALUATION ADVISOR: Alec Payan M.D. For any questions, please call customer service at FREQUENCY:OTHER Resulting Agency Comment Specimen source: Blood Ernie Pompa MD LAB BLOOD ORDERABLES Performing Organization Address City/State/ZIP Code Phon e Number [facility] documented in this encounter Visit Diagnoses Not on filedocumented in this encounter
--- OUTSIDE RECORDS SUMMARY | 2021-11-18 12:39 | XMS_ITS | Encounter Summary ---
:1945 Author Organization [facility] Address [address] [place] [address] Care Team Providers Name Role Phone Unavailable Primary Care Provider Unavailable Encounter Details Date Type Department Care Team Description 05/13/2020 Orders Only [facility] O f Ernie Guzmán MD [address] [place] [address] [place], [place] [phone] (Wo rk) Social History Tobacco Use [...] / Volume Laterality 05/13/2020 05/14/2020 3:41 PM CUSTOMER SERVICE SALES CONSULTANT Narrative [facility] - 05/14/2020 Unless otherwise specified, test(s) performed at: [facility], [address] [place] [address] PULP GRINDER: Alec Payan M.D. For any questions, please call customer service at FREQUENCY:OTHER Resulting Agency Comment Specimen source: Blood Ernie Pompa MD LAB BLOOD ORDERABLES Performing Organization Address City/State/ZIP Code Phon e Number [facility] documented in this encounter Visit Diagnoses Not on filedocumented in this encounter
--- OUTSIDE RECORDS SUMMARY | 2021-11-18 12:39 | XMS_ITS | Encounter Summary ---
:1945 Author Organization [facility] Address [address] [place] [address] Care Team Providers Name Role Phone Unavailable Primary Care Provider Unavailable Encounter Details Date Type Department Care Team Description 02/05/2020 Orders [facility] O f Ernie Guzmán MD [address] [place] [address] [place], [place] [phone] (Wo rk) Social History Tobacco Use [...] Volume Laterality 02/05/2020 02/06/2020 10:4 4 AM EDUCATION REVIEWER Narrative [facility] - 02/06/2020 Unless otherwise specified, test(s) performed at: [facility], [address] [place] [id number] IV RN: Alec Payan M.D. For any questions, please call customer service at FREQUENCY:OTHER Resulting Agency Comment Specimen source: Blood Ernie Pompa MD LAB BLOOD ORDERABLES Performing Organization Address City/State/ZIP Code Phon e Number [facility] documented in this encounter Visit Diagnoses Not on filedocumented in this encounter
--- OUTSIDE RECORDS SUMMARY | 2021-11-18 12:39 | XMS_ITS | Encounter Summary ---
:1945 Author Organization [facility] Address [address] [place] [address] Care Team Providers Name Role Phone Unavailable Primary Care Provider Unavailable Encounter Details Date Type Department Care Team Description 03/16/2020 Orders [facility] O f Ernie Guzmán MD [address] [place] [address] [place], [place] [phone] (Wo rk) Social History Tobacco Use [...] Volume Laterality 03/16/2020 03/17/2020 12:0 2 PM BASIN CLEANER Narrative [facility] - 03/17/2020 Unless otherwise specified, test(s) performed at: [facility], [address] [place] [address] NUT FEEDER: Alec Payan M.D. For any questions, please call customer service at FREQUENCY:OTHER Resulting Agency Comment Specimen source: Blood Ernie Pompa MD LAB BLOOD ORDERABLES Performing Organization Address City/State/ZIP Code Phon e Number [facility] documented in this encounter Visit Diagnoses Not on filedocumented in this encounter
--- OUTSIDE RECORDS SUMMARY | 2021-11-18 12:39 | XMS_ITS | Encounter Summary ---
:1945 Author Organization [facility] Address [address] [place] [address] Care Team Providers Name Role Phone Unavailable Primary Care Provider Unavailable Encounter Details Date Type Department Care Team Description 12/25/2019 Treatment [facility] O Ernie Gómez MD [address] [place] [address] [place], [place] [phone] (Wo rk) Social History Tobacco Use Types Packs/Day Years Used Date Smoking Tobacco: Unknown Comments: Smoking History Info:Patient n ot screened Sex Assigned at Date Recorded Not on file documented as of this encounter Miscellaneous Notes Dialysis Note - Ernie Pompa MD - 12/25/2019 11:33 AM CDT Date: Dec 25, 2019 Patient Name: Shaun Ocampo : 1945 Chart #: [id number] Sex: M This patient was personally seen [...] AM ) BP (sit): 118/50 AP(-) / APPLICATIONS CHEMIST: 258/222 Pulse: 64 Chairside data as of [...] Access Flow > 2000 > 2000 1011 PRODUCT SAFETY ADMINISTRATOR: Ernie Pompa MD LOCATION: [place] [phone] SCHEDULE: M-W- 2nd Shift EDW: kg. DIALYZER: [...] prescription. Vascular Access Assessment Type of access: [id number]/2019 Surgeon Annita KUMARW Access working well Anemia [...] above goal. Intact PTH is below goal. Cracker Sprayer will adjust binders and vitamin D per [...]
--- OUTSIDE RECORDS SUMMARY | 2021-11-18 12:39 | XMS_ITS | Encounter Summary ---
:1945 Author Organization [facility] Address [address] [place] [address] Care Team Providers Name Role Phone Unavailable Primary Care Provider Unavailable Encounter Details Date Type Department Care Team Description 11/27/2019 [facility] O f Ernie Guzmán MD [address] [place] [address] [place], [place] [phone] (Wo rk) Social History Tobacco Use [...] in this encounter Results (ABNORMAL) HEMATOLOGY (11/27/2019) [facility] gist Method Time Signature Neutrophils 77.3 (H) [...] 11/29/2019 Unless otherwise specified, test(s) performed at: [facility], [address] [place] [address] POLICE SERGEANT: Alec Payan M.D. For any questions, please call customer service at FREQUENCY:OTHER Resulting Agency Comment Specimen source: Blood Ernie Pompa MD LAB BLOOD ORDERABLES Performing Organization Address City/State/ZIP Code Phon e Number [facility] documented in this encounter Visit Diagnoses Not on filedocumented in this encounter
--- OUTSIDE RECORDS SUMMARY | 2021-11-18 12:39 | XMS_ITS | Encounter Summary ---
:1945 Author Organization [facility] Address [address] [place] [address] Care Team Providers Name Role Phone Unavailable Primary Care Provider Unavailable Encounter Details Date Type Department Care Team Description 02/12/2020 [facility] O f Ernie Guzmán MD [address] [place] [address] [place], [place] [phone] (Wo rk) Social History Tobacco Use [...] Volume Laterality 02/12/2020 02/14/2020 12:5 9 PM SENIOR DIRECTOR Narrative [facility] - 02/14/2020 Unless otherwise specified, test(s) performed at: [facility], [address] [place] [address] MEDIA SALES CONSULTANT: Alec Payan M.D. For any questions, please call customer service at FREQUENCY:OTHER Resulting Agency Comment Specimen source: Blood Ernie Pompa MD LAB BLOOD ORDERABLES Performing Organization Address City/State/ZIP Code Phon e Number [facility] documented in this encounter Visit Diagnoses Not on filedocumented in this encounter
--- OUTSIDE RECORDS SUMMARY | 2021-11-18 12:39 | XMS_ITS | Encounter Summary ---
:1945 Author Organization [facility] Address [address] [place] [address] Care Team Providers Name Role Phone Unavailable Primary Care Provider Unavailable Encounter Details Date Type Department Care Team Description 12/04/2019 Treatment [facility] O Ernie Gómez MD [address] [place] [address] [place], [place] [phone] [phone] (Wo rk) Social History Tobacco Use Types Packs/Day Years Used Date Smoking Tobacco: Unknown Comments: Smoking History Info:Patient n ot screened Sex Assigned at Date Recorded Not on file documented as of this encounter Miscellaneous Notes Dialysis Note - Ernie Pompa MD - 12/04/2019 12:16 PM CDT Date: Dec 04, 2019 Patient Name: Shaun Ocampo : 1945 Chart #: [id number] Sex: M This patient was personally seen [...] Every 2 weeks During Dialysis 11/27/2019 11/25/2020 DRUM PULLER: Ernie Pompa MD LOCATION: [phone] SCHEDULE: -- 2nd Shift ACCESS: EDW: kg. [...] He had infiltration last week, dialyzed at [facility] on Sat and went well, access [...] (06/19/19) Vascular Access Assessment: Type of access: Bcrzbzj06/2019 Surgeon - Lary KUMARW Access working well [...]
--- OUTSIDE RECORDS SUMMARY | 2021-11-18 12:39 | XMS_ITS | Encounter Summary ---
:1945 Author Organization [facility] Address [address] [place] [address] Care Team Providers Name Role Phone Unavailable Primary Care Provider Unavailable Encounter Details Date Type Department Care Team Description 01/29/2020 [facility] O f Ernie Guzmán MD [phone] [place] [address] [place], [place] [phone] (Wo rk) Social History Tobacco Use [...] / Volume Laterality 01/29/2020 01/30/2020 5:28 PM ACCOUNTING INTERN Narrative [facility] - 01/30/2020 Unless otherwise specified, test(s) performed at: [facility], [address] [place] [address] YIELD IMPROVEMENT ENGINEER: Alec Payan M.D. For any questions, [...] / Volume Laterality 01/29/2020 01/30/2020 1:32 PM ACCOUNTING INTERN Narrative [facility] - 01/30/2020 Unless otherwise specified, test(s) performed at: [facility], [address] [place] [address] YIELD IMPROVEMENT ENGINEER: Alec Payan M.D. For any questions, please call customer service at FREQUENCY:OTHER Resulting Agency Comment Specimen source: Blood Ernie Pompa MD LAB BLOOD ORDERABLES Performing Organization Address City/State/ZIP Code Phon e Number [facility] documented in this encounter Visit Diagnoses Not on filedocumented in this encounter
--- OUTSIDE RECORDS SUMMARY | 2021-11-18 12:39 | XMS_ITS | Encounter Summary ---
:1945 Author Organization [facility] Address [address] [place] [address] Care Team Providers Name Role Phone Unavailable Primary Care Provider Unavailable Encounter Details Date Type Department Care Team Description 12/25/2019 Orders [facility] O f Ernie Guzmán MD [address] [place] [address] [place], [place] [phone] (Wo rk) Social History Tobacco Use [...] 12/27/2019 Unless otherwise specified, test(s) performed at: [facility], [address] [place] [address] CAR WIPER: Alec Payan M.D. For any questions, please call customer service at FREQUENCY:MONTHLY Resulting Agency Comment Specimen source: Plasma Ernie Pompa MD LAB BLOOD ORDERABLES Performing Organization Address City/[facility] Phon e Number [facility] IMMUNO CHEMISTRY (12/25/2019) P athologist Signature Hep B Surface Negative Negative [facility] Ag [facility] Specimen (Source) Anatomical Collection Method Collection Time Re ceived Time Location / / Volume Laterality 12/25/2019 12/26/2019 5:50 PM CDT Narrative [facility] - 12/27/2019 Unless otherwise specified, test(s) performed at: [facility], [address] [place] [address] CAR WIPER: Alec Payan M.D. For any questions, please call customer service at FREQUENCY:MONTHLY Resulting Agency Comment Specimen source: Serum Ernie Pompa MD LAB BLOOD ORDERABLES Performing Organization Address [facility] Phon e [...] 12/27/2019 Unless otherwise specified, test(s) performed at: [facility], [address] [place] [address] CAR WIPER: Alec Payan M.D. For any questions, please call customer service at FREQUENCY:MONTHLY Resulting Agency Comment Specimen source: Plasma Ernie Pompa MD LAB BLOOD ORDERABLES Performing Organization Address City/[facility] Phon e [...] 12/27/2019 Unless otherwise specified, test(s) performed at: [facility], [address] [place] [address] CAR WIPER: Alec Payan M.D. For any questions, please [...] 12/27/2019 Unless otherwise specified, test(s) performed at: [facility], [address] [place] [address] CAR WIPER: Alec Payan M.D. For any questions, please call customer service at FREQUENCY:MONTHLY Resulting Agency Comment Specimen source: Blood Ernie Pompa MD LAB BLOOD ORDERABLES Performing Organization Address City/[facility]/ZIP Code Phon e Number [facility] documented in this encounter Visit Diagnoses Not on filedocumented in this encounter
--- OUTSIDE RECORDS SUMMARY | 2021-11-18 12:39 | XMS_ITS | Encounter Summary ---
:1945 Author Organization [facility] Address [address] [place] [address] Care Team Providers Name Role Phone Unavailable Primary Care Provider Unavailable Encounter Details Date Type Department Care Team Description 01/22/2020 [facility] O f Ernie Guzmán MD [address] [place] [address] [place], [place] [phone] (Wo rk) Social History Tobacco Use [...] / Volume Laterality 01/22/2020 01/23/2020 8:20 PM SMALL KICK PRESS OPERATOR Narrative [facility] - 01/24/2020 Unless otherwise specified, test(s) performed at: [facility], [address] [place], [place] [id number] SUPERVISOR OF INSTRUCTION: Alec Payan M.D. For any questions, please [...] / Volume Laterality 01/22/2020 01/23/2020 8:13 PM SMALL KICK PRESS OPERATOR Narrative [facility] - 01/24/2020 Unless otherwise specified, test(s) performed at: [facility], [address] [place] [address] SUPERVISOR OF INSTRUCTION: Alec Payan M.D. For any questions, please call customer service at FREQUENCY:MONTHLY Resulting Agency Comment Specimen source: Serum Ernie Pompa MD LAB BLOOD ORDERABLES Performing Organization Address City/[facility] Phon e Number [facility] HD KINETICS (01/22/2020) P athologist Signature % Urea 77 65 - 80 % [facility] Reduction [facility] Specimen (Source) Anatomical Collection Method Collection Time Re ceived Time Location / / Volume Laterality 01/22/2020 01/23/2020 8:14 PM SMALL KICK PRESS OPERATOR Narrative [facility] - 01/24/2020 Unless otherwise specified, test(s) performed at: [facility], [address] [place] [address] SUPERVISOR OF INSTRUCTION: Alec Payan M.D. For any questions, please [...] / Volume Laterality 01/22/2020 01/23/2020 8:13 PM SMALL KICK PRESS OPERATOR Narrative [facility] - 01/24/2020 Unless otherwise specified, test(s) performed at: [facility], [address] [place] [address] SUPERVISOR OF INSTRUCTION: Alec Payan M.D. For any questions, please call customer service at FREQUENCY:MONTHLY Resulting Agency Comment Specimen source: Serum Ernie Pompa MD LAB BLOOD ORDERABLES Performing Organization Address City/[facility] Phon e Number [facility] POST CHEMISTRY (01/22/2020) P athologist Signature BUN Post 16 6 - 19 [facility] Dialysis mg/dL [facility] Specimen (Source) Anatomical Collection Method Collection Time Re ceived Time Location / / Volume Laterality 01/22/2020 01/23/2020 1:17 PM SMALL KICK PRESS OPERATOR Narrative [facility] - 01/23/2020 Unless otherwise specified, test(s) performed at: [facility], [address] [place] [address] SUPERVISOR OF INSTRUCTION: Alec Payan M.D. For any questions, please call customer service at FREQUENCY:MONTHLY Resulting Agency Comment Specimen source: Plasma Ernie Pompa MD LAB BLOOD ORDERABLES Performing Organization Address City/[facility] Phon e Number [facility] documented in this encounter Visit Diagnoses Not on filedocumented in this encounter
--- OUTSIDE RECORDS SUMMARY | 2021-11-18 12:39 | XMS_ITS | Encounter Summary ---
:1945 Author Organization [facility] Address [address] [place] [address] Care Team Providers Name Role Phone Unavailable Primary Care Provider Unavailable Encounter Details Date Type Department Care Team Description 04/22/2020 Treatment [facility] O f Ernie Guzmán MD [address] [place] [address] [place], [place] [address] [phone] (Wo rk) Social History Tobacco Use Types Packs/Day Years Used Date Smoking Tobacco: Unknown Comments: Smoking History Info:Patient n ot screened Sex Assigned at Date Recorded Not on file documented as of this encounter Miscellaneous Notes Dialysis Note - Ernie Pompa MD - 04/22/2020 11:52 AM CST Date: Apr 22, 2020 Patient Name: Shaun Ocampo : 1945 Chart #: [id number] Sex: M This patient was personally seen [...] AM ) BP (sit): 115/64 AP(-) / VENTURE CAPITAL ANALYST: 258/208 Pulse: 67 Chairside data as [...] Every 4 weeks During Dialysis 04/15/2020 04/14/2021 NETWORK PRICING CONSULTANT: Ernie Pompa MD LOCATION: [phone] SCHEDULE: M-W-F 2nd Shift EDW: kg. DIALYZER: [...] He had infiltration last week, dialyzed at [facility] on Sat and went well, [...] prescription. Vascular Access Assessment Type of access: Kirbzns06/2019 Surgeon - Lary GARDNER Access working well [...] above goal. Intact PTH is above goal. Finance Business Manager will adjust binders and vitamin D [...] 04/22/2020 at 11:53:25 AM ] Transcribed: Ernie Pomap ( 04/22/2020 ) documented in this encounter Plan of Treatment Not on filedocumented as of this encounter Visit Diagnoses Not on filedocumented in this encounter
--- OUTSIDE RECORDS SUMMARY | 2021-11-18 12:39 | XMS_ITS | Encounter Summary ---
:1945 Author Organization [facility] Address [address] [place] [address] Care Team Providers Name Role Phone Unavailable Primary Care Provider Unavailable Encounter Details Date Type Department Care Team Description 03/09/2020 [facility] Only [facility] O f Ernie Guzmán MD [address] [place] [address] [place], [place] [phone] (Wo rk) Social History Tobacco Use [...] athologist Signature Hepatitis B <10 mIU/mL [facility] Surface Ab [facility] Comment: Reference Range: <10 mIU/mL ? Non-Immune >=10 mIU/mL ?Immune The magnitude of the measured result abo ve 10 mIU/mL is not indicative of the total amount of antibody present. Custom Exception Specimen (Source) Anatomical Collection Method Collection Time Re ceived Time Location / / Volume Laterality 03/09/2020 03/10/2020 2:47 PM MINING HELPER Narrative [facility] - 03/10/2020 Unless otherwise specified, test(s) performed at: [facility], [address] [place] [address] [place] STEWARD: Alec Payan M.D. For any questions, please [...] Volume Laterality 03/09/2020 03/10/2020 12:1 4 PM MINING HELPER Narrative [facility] - 03/10/2020 Unless otherwise specified, test(s) performed at: [facility], [address] [place] [address] [place] STEWARD: Alec Payan M.D. For any questions, please call customer service at FREQUENCY:OTHER Resulting Agency Comment Specimen source: Blood Ernie Pompa MD LAB BLOOD ORDERABLES Performing Organization Address City/State/ZIP Code Phon e Number [facility] documented in this encounter Visit Diagnoses Not on filedocumented in this encounter
--- OUTSIDE RECORDS SUMMARY | 2021-11-18 12:39 | XMS_ITS | Encounter Summary ---
:1945 Author Organization [facility] Address [address] [place] [address] Care Team Providers Name Role Phone Unavailable Primary Care Provider Unavailable Encounter Details Date Type Department Care Team Description 12/18/2019 Orders Only [facility] O f Ernie Guzmán MD [address] [place] [address] [place], [place] [phone] (Wo rk) Social History Tobacco Use [...] 12/19/2019 Unless otherwise specified, test(s) performed at: [facility], [address] [place] [address] DIRECTOR OF COLLECTIONS AND ARCHIVES: Alec Payan M.D. For any questions, please call customer service at FREQUENCY:OTHER Resulting Agency Comment Specimen source: Blood Ernie Pompa MD LAB BLOOD ORDERABLES Performing Organization Address City/State/ZIP Code Phon e Number [facility] documented in this encounter Visit Diagnoses Not on filedocumented in this encounter
--- OUTSIDE RECORDS SUMMARY | 2021-11-18 12:39 | XMS_ITS | Encounter Summary ---
:1945 Author Organization [facility] Address [address] [place] [address] [address] [place] [address] Care Team Providers Name Role Phone Unavailable Primary Care Provider Unavailable Encounter Details Date Type Department Care Team Description 03/04/2020 Orders [facility] O f Ernie Guzmán MD [address] [place] [address] [place], [place] [phone] (Wo rk) Social History Tobacco Use [...] / Volume Laterality 03/04/2020 03/06/2020 1:44 PM BUILDING INSPECTOR Narrative [facility] - 03/06/2020 Unless otherwise specified, test(s) performed at: [facility], [address] [place] [address] PAYROLL LEAD: Alec Payan M.D. For any questions, please call customer service at FREQUENCY:OTHER Resulting Agency Comment Specimen source: Blood Ernie Pompa MD LAB BLOOD ORDERABLES Performing Organization Address City/State/ZIP Code Phon e Number [facility] documented in this encounter Visit Diagnoses Not on filedocumented in this encounter
--- OUTSIDE RECORDS SUMMARY | 2021-11-18 12:39 | XMS_ITS | Encounter Summary ---
:1945 Author Organization [facility] Address [address] [place] [address] Care Team Providers Name Role Phone Unavailable Primary Care Provider Unavailable Encounter Details Date Type Department Care Team Description 12/04/2019 Orders [facility] O f Ernie Guzmán MD [address] [place] [address] [place], [place] [phone] (Wo rk) Social History Tobacco Use [...] 12/05/2019 Unless otherwise specified, test(s) performed at: [email or web address], [address] [place] [address] MELTER SUPERVISOR OXYGEN FURNACE: Alec Payan M.D. For any questions, please [...] 12/05/2019 Unless otherwise specified, test(s) performed at: [email or web address], [address] [place] [address] MELTER SUPERVISOR OXYGEN FURNACE: Alec Payan M.D. For any questions, please call customer service at FREQUENCY:OTHER Resulting Agency Comment Specimen source: Blood Ernie Pompa MD LAB BLOOD ORDERABLES Performing Organization Address City/[facility] Code Phon e Number [facility] documented in this encounter Visit Diagnoses Not on filedocumented in this encounter
--- OUTSIDE RECORDS SUMMARY | 2021-11-18 12:39 | XMS_ITS | Encounter Summary ---
:1945 Author Organization [facility] Address [address] [place] [address] Care Team Providers Name Role Phone Unavailable Primary Care Provider Unavailable Encounter Details Date Type Department Care Team Description 01/15/2020 Orders [facility] O f Ernie Guzmán MD [address] [place] [address] [place], [place] [phone] (Wo rk) Social History Tobacco Use [...] 01/16/2020 Unless otherwise specified, test(s) performed at: [facility], [address] [place] [address] BINGO CLERK: Alec Payan M.D. For any questions, please call customer service at FREQUENCY:OTHER Resulting Agency Comment Specimen source: Blood Ernie Pompa MD LAB BLOOD ORDERABLES Performing Organization Address City/State/ZIP Code Phon e Number [facility] documented in this encounter Visit Diagnoses Not on filedocumented in this encounter
--- OUTSIDE RECORDS SUMMARY | 2021-11-18 12:39 | XMS_ITS | Encounter Summary ---
:1945 Author Organization [facility] Address [address] [place] [address] Care Team Providers Name Role Phone Unavailable Primary Care Provider Unavailable Encounter Details Date Type Department Care Team Description 04/08/2020 Treatment [facility] f Ernie Guzmán MD [address] [place] [address] [place], [place] [address] [phone] (Wo rk) Social History Tobacco Use Types Packs/Day Years Used Date Smoking Tobacco: Unknown Comments: Smoking History Info:Patient n ot screened Sex Assigned at Date Recorded Not on file documented as of this encounter Miscellaneous Notes Dialysis Note - Ernie Pompa MD - 04/08/2020 12:32 PM CST Date: Apr 08, 2020 Patient Name: Shaun Ocampo : 1945 Chart #: [id number] Sex: M This patient was personally seen [...] PM ) BP (sit): 101/53 AP(-) / CUSTOMER ACCOUNT TECHNICIAN: 255/193 Pulse: 70 Chairside data as of [...] Every 4 weeks During Dialysis 03/18/2020 03/17/2021 TOBACCO FEEDER CATCHER: Ernie Pompa MD LOCATION: [phone] SCHEDULE: M-W- 2nd Shift ACCESS: EDW: kg. [...] had infiltration last week, dialyzed at [facility] on Sat and went well, access [...] (09/18/19) Vascular Access Assessment: Type of access: [id number]/2019 Surgeon - Lary GARDNER Access working well [...]
--- OUTSIDE RECORDS SUMMARY | 2021-11-18 12:39 | XMS_ITS | Encounter Summary ---
:1945 Author Organization [facility] Address [address] [place] [address] Care Team Providers Name Role Phone Unavailable Primary Care Provider Unavailable Encounter Details Date Type Department Care Team Description 12/11/2019 Orders Only [facility] O f Ernie Guzmán MD [address] [place] [address] [place], [place] [phone] (Wo rk) Social History Tobacco Use [...] 12/12/2019 Unless otherwise specified, test(s) performed at: [facility], [address] [place] [address] RAW SHELLFISH PREPARER: Alec Payan M.D. For any questions, please call customer service at FREQUENCY:OTHER Resulting Agency Comment Specimen source: Blood Ernie Pompa MD LAB BLOOD ORDERABLES Performing Organization Address City/State/ZIP Code Phon e Number [facility] documented in this encounter Visit Diagnoses Not on filedocumented in this encounter
--- OUTSIDE RECORDS SUMMARY | 2021-11-18 12:39 | XMS_ITS | Encounter Summary ---
:1945 Author Organization [facility] Address [address] [place] [address] Care Team Providers Name Role Phone Unavailable Primary Care Provider Unavailable Encounter Details Date Type Department Care Team Description 04/22/2020 Orders Only [facility] f Ernie Guzmán MD [address] [place] [address] [place], [place] [phone] (Wo rk) Social History Tobacco Use [...] / Volume Laterality 04/22/2020 04/23/2020 7:44 PM SALES PLANNING COORDINATOR Narrative [facility] - 04/25/2020 Unless otherwise specified, test(s) performed at: [facility], [address] [place] [address] FARMWORKER POULTRY: Alec Payan M.D. For any questions, please [...] / Volume Laterality 04/22/2020 04/23/2020 3:15 PM SALES PLANNING COORDINATOR Narrative [facility] - 04/24/2020 Unless otherwise specified, test(s) performed at: [facility], [address] [place] [address] FARMWORKER POULTRY: Alec Payan M.D. For any questions, please call customer service at FREQUENCY:MONTHLY Resulting Agency Comment Specimen source: Blood Ernie Pompa MD LAB BLOOD ORDERABLES Performing Organization Address City/[facility] Phon e Number [facility] HD KINETICS (04/22/2020) P athologist Signature % Urea 79 65 - 80 % [facility] Reduction [facility] Specimen (Source) Anatomical Collection Method Collection Time Re ceived Time Location / / Volume Laterality 04/22/2020 04/23/2020 7:45 PM SALES PLANNING COORDINATOR Narrative [facility] - 04/24/2020 Unless otherwise specified, test(s) performed at: [facility], [address] [place] [address] FARMWORKER POULTRY: Alec Payan M.D. For any questions, please call customer service at FREQUENCY:MONTHLY Resulting Agency Comment Specimen source: Serum Ernie Pompa MD LAB BLOOD ORDERABLES Performing Organization Address City/[facility] Code Phon e Number [...] / Volume Laterality 04/22/2020 04/23/2020 7:44 PM SALES PLANNING COORDINATOR Narrative [facility] - 04/24/2020 Unless otherwise specified, test(s) performed at: [facility], [address] [place] [address] FARMWORKER POULTRY: Alec Payan M.D. For any questions, please [...] / Volume Laterality 04/22/2020 04/23/2020 3:15 PM SALES PLANNING COORDINATOR Narrative [facility] - 04/24/2020 Unless otherwise specified, test(s) performed at: [facility], [address] [place] [address] FARMWORKER POULTRY: Alec Payan M.D. For any questions, please [...] / Volume Laterality 04/22/2020 04/23/2020 2:14 PM SALES PLANNING COORDINATOR Narrative [facility] - 04/23/2020 Unless otherwise specified, test(s) performed at: [facility], [address] [place] [address] FARMWORKER POULTRY: Alec Payan M.D. For any questions, please call customer service at FREQUENCY:MONTHLY Resulting Agency Comment Specimen source: Plasma Ernie Pompa MD LAB BLOOD ORDERABLES Performing Organization Address City/State/ZIP Code Phon e Number [facility] documented in this encounter Visit Diagnoses Not on filedocumented in this encounter
--- OUTSIDE RECORDS SUMMARY | 2021-11-18 12:39 | XMS_ITS | Encounter Summary ---
:1945 Author Organization [facility] Address [address] [place] [address] Care Team Providers Name Role Phone Unavailable Primary Care Provider Unavailable Encounter Details Date Type Department Care Team Description 03/25/2020 Treatment [facility] O f rEnie Guzmán MD [address] [place] [address] [place], [place] [phone] [phone] (Wo rk) Social History Tobacco Use Types Packs/Day Years Used Date Smoking Tobacco: Unknown Comments: Smoking History Info:Patient n ot screened Sex Assigned at Date Recorded Not on file documented as of this encounter Miscellaneous Notes Dialysis Note - Ernie Pompa MD - 03/25/2020 10:39 AM CST Date: Mar 25, 2020 Patient Name: Shaun Ocampo : 1945 Chart #: [id number] Sex: M This patient was personally seen [...] AM ) BP (sit): 115/62 AP(-) / PRODUCTION MACHINE SHOP SUPERVISOR: 248/203 Pulse: 72 Chairside data as of [...] Every 4 weeks During Dialysis 03/18/2020 03/17/2021 CASH REGISTER OPERATOR: Ernie Pompa MD LOCATION: [phone] SCHEDULE: M-W-F 2nd Shift EDW: kg. DIALYZER: [...] prescription. Vascular Access Assessment Type of access: [id number]/2019 Surgeon - Lary KUMARW Access working well [...] above goal. Intact PTH is at goal. Lease Broker will adjust binders and vitamin D [...]
--- OUTSIDE RECORDS SUMMARY | 2021-11-18 12:39 | XMS_ITS | Encounter Summary ---
:1945 Author Organization [facility] Address [address] [place] [address] Care Team Providers Name Role Phone Unavailable Primary Care Provider Unavailable Encounter Details Date Type Department Care Team Description 04/15/2020 Orders Only [facility] O f Ernie Guzmán MD [phone] [place] [address] [place], [place] [phone] (Wo rk) Social History Tobacco Use [...] / Volume Laterality 04/15/2020 04/16/2020 9:36 AM COLLEGE OF EDUCATION DEAN Narrative [facility] - 04/16/2020 Unless otherwise specified, test(s) performed at: [facility], [address] [place] [address] TWISTER DOFFER: Alec Payan M.D. For any questions, please call customer service at FREQUENCY:OTHER Resulting Agency Comment Specimen source: Blood Ernie Pompa MD LAB BLOOD ORDERABLES Performing Organization Address City/State/ZIP Code Phon e Number [facility] documented in this encounter Visit Diagnoses Not on filedocumented in this encounter
--- OUTSIDE RECORDS SUMMARY | 2021-11-18 12:39 | XMS_ITS | Encounter Summary ---
:1945 Author Organization [facility] Address [address] [place] [address] Care Team Providers Name Role Phone Unavailable Primary Care Provider Unavailable Encounter Details Date Type Department Care Team Description 05/06/2020 Treatment [facility] f Ernie Guzmán MD [address] [place] [address] [place], [place] [phone] [phone] (Wo rk) Social History Tobacco Use Types Packs/Day Years Used Date Smoking Tobacco: Unknown Comments: Smoking History Info:Patient n ot screened Sex Assigned at Date Recorded Not on file documented as of this encounter Miscellaneous Notes Dialysis Note - Ernie Pompa MD - 05/06/2020 11:40 AM CST Date: May 06, 2020 Patient Name: Shaun Ocampo : 1945 Chart #: [id number] Sex: M This patient was personally seen [...] AM ) BP (sit): 108/52 AP(-) / CERTIFIED MASSAGE THERAPIST: 261/214 Pulse: 89 Chairside data as of [...] Every 4 weeks During Dialysis 04/15/2020 04/14/2021 DETHISTLER OPERATOR: Ernie Pompa MD LOCATION: [phone] SCHEDULE: 2nd Shift ACCESS: EDW: kg. DIALYZER: HD DURATION: NEEDLE SIZE: ANTICOAG: BATH: QB: ml/min QD: ml/min Subjective Tolerating dialysis well. Reports no trouble with access. 05/06: HD going well outside high fluid gains that continue. However, acute abd/groin pain on Monday and came off early. Had gross hematuria Monday. Went to Urgent care -> ER in [place] yesterday,CT with R hydro but no obstructive [...] He had infiltration last week, dialyzed at [facility] on Sat and went well, access [...] (12/25/19) Vascular Access Assessment: Type of access: [id number]/2019 Surgeon - Lary GARDNER Access working well Impression and Plan No changes, stable dialysis He will monitor sx and ensure gross hematuria resolves and pain resolving over next 48hrs [facility] get him in for [...]
--- OUTSIDE RECORDS SUMMARY | 2021-11-18 12:39 | XMS_ITS | Encounter Summary ---
:1945 Author Organization [facility] Address [address] [place] [address] Care Team Providers Name Role Phone Unavailable Primary Care Provider Unavailable Encounter Details Date Type Department Care Team Description 03/25/2020 Orders [facility] O f Ernie Guzmán MD [address] [place] [address] [place], [place] [phone] (Wo rk) Social History Tobacco Use [...] i n the results section . [facility] LAB RESULTS Routine 03/25/2020 Resul ts for [...] Volume Laterality 03/25/2020 03/27/2020 11:1 6 AM SHODDY MILL WORKER Narrative [facility] - 03/30/2020 Unless otherwise specified, test(s) performed at: [facility], [address] [place] [address] FIBRE OPTIC CABLE SPLICER: Alec Payan M.D. For any questions, please [...] and its performa nce characteristics determined by [facility]. It has not been cleared or approved by the FDA. The laboratory is regulated under CLIA a s qualified to perform high complexity testing. This test is used fo r clinical purposes. It should not be regarded as investigational or fo r research. Specimen (Source) Anatomical Collection Method Collection Time Re ceived Time Location / / Volume Laterality 03/25/2020 03/26/2020 6:29 PM SHODDY MILL WORKER Narrative [facility] - 03/28/2020 Unless otherwise specified, test(s) performed at: [facility], [address] [place] [id number] FIBRE OPTIC CABLE SPLICER: Alec Payan M.D. For any questions, please [...] Volume Laterality 03/25/2020 03/27/2020 11:1 6 AM SHODDY MILL WORKER Resulting Agency Comment Specimen source: Serum Ernie Leimario CAMPBELL LAB BLOOD ORDERABLES Performing Organization Address City/[facility]/ZIP Code Phon e Number [facility] HD KINETICS (03/25/2020) P athologist Signature % Urea 79 65 - 80 % [facility] Reduction [facility] Specimen (Source) Anatomical Collection Method Collection Time Re ceived Time Location / / Volume Laterality 03/25/2020 03/27/2020 11:1 7 AM SHODDY MILL WORKER Resulting Agency Comment Specimen source: Serum Ernie Leimario CAMP[facility] LAB BLOOD ORDERABLES Performing Organization Address City/[facility]/ZIP Code Phon e Number [facility] POST CHEMISTRY (03/25/2020) P athologist Signature BUN Post 12 6 - 19 APS [facility] Dialysis mg/dL [facility] Specimen (Source) Anatomical Collection Method Collection Time Re ceived Time Location / / Volume Laterality 03/25/2020 03/27/2020 10:5 5 AM SHODDY MILL WORKER Narrative [facility] - 03/27/2020 Unless otherwise specified, test(s) performed at: [facility], [address] [place] [address] FIBRE OPTIC CABLE SPLICER: Alec Payan M.D. For any questions, please call customer service at FREQUENCY:MONTHLY Resulting Agency Comment Specimen source: Plasma Ernie Pompa MD LAB BLOOD ORDERABLES Performing Organization Address City/State/ZIP Code Phon e Number [facility] (ABNORMAL) Spectrae Chemistry (03/25/2020) [facility] Method Time Signature BUN 58 (H) [...] Volume Laterality 03/25/2020 03/27/2020 11:1 6 AM SHODDY MILL WORKER Narrative [facility] - 03/28/2020 Unless otherwise specified, test(s) performed at: [facility], [address] [place] [address] FIBRE OPTIC CABLE SPLICER: Alec Payan M.D. For any questions, please call customer service at FREQUENCY:MONTHLY Resulting Agency Comment Specimen source: Serum Ernie Pompa MD LAB BLOOD ORDERABLES Performing Organization Address City/[facility] Phon e Number [facility] (ABNORMAL) Spectrae Chemistry (03/25/2020) P athologist Signature PTH 828 (H) 16 - 80 APS [facility]RA pg/mL [facility] Specimen (Source) Anatomical Collection Method Collection Time Re ceived Time Location / / Volume Laterality 03/25/2020 03/26/2020 5:05 PM SHODDY MILL WORKER Narrative [facility] - 03/27/2020 Unless otherwise specified, test(s) performed at: [facility], [address] [place] [address] FIBRE OPTIC CABLE SPLICER: Alec Payan M.D. For any questions, please call customer service at FREQUENCY:MONTHLY Resulting Agency Comment Specimen source: Plasma Ernie Pompa MD LAB BLOOD ORDERABLES Performing Organization Address City/[facility] Phon e Number APS [...] / Volume Laterality 03/25/2020 03/26/2020 5:05 PM SHODDY MILL WORKER Narrative [facility] - 03/26/2020 Unless otherwise specified, test(s) performed at: [facility], [address] [place] [address] FIBRE OPTIC CABLE SPLICER: Alec Payan M.D. For any questions, please call customer service at FREQUENCY:MONTHLY Resulting Agency Comment Specimen source: Blood Ernie Pompa MD LAB BLOOD ORDERABLES Performing Organization Address City/State/ZIP Code Phon e Number [facility] documented in this encounter Visit Diagnoses Not on filedocumented in this encounter
--- OUTSIDE RECORDS SUMMARY | 2021-11-18 12:40 | XMS_ITS | Encounter Summary ---
:1945 Author Organization [facility] Address [address] [place] [address] Care Team Providers Name Role Phone Unavailable Primary Care Provider Unavailable Encounter Details Date Type Department Care Team Description 11/06/2019 Treatment [facility] O Ernie Gómez MD [address] [place] [address] [place], [place] [phone] [phone] (Wo rk) Social History Tobacco Use Types Packs/Day Years Used Date Smoking Tobacco: Unknown Comments: Smoking History Info:Patient n ot screened Sex Assigned at Date Recorded Not on file documented as of this encounter Miscellaneous Notes Dialysis Note - Ernie Pompa MD - 11/06/2019 12:22 PM CDT Date: Nov 06, 2019 Patient Name: Shaun Ocampo : 1945 Chart #: [id number] Sex: M This patient was personally seen [...] PM ) BP (sit): 139/63 AP(-) / SUBSTANCE ABUSE COUNSELOR: 235/181 Pulse: 64 Chairside data as of [...] IVP 1X Week During Dialysis 10/28/2019 10/19/2020 RUBBER WASHER: Ernie Pompa MD LOCATION: [phone] SCHEDULE: M-W- 2nd Shift EDW: kg. DIALYZER: [...] had infiltration last week, dialyzed at [facility] on Sat and went well, [...] prescription. Vascular Access Assessment Type of access: [id number]/2019 Surgeon - Lary KUMARW Access working well [...] above goal. Intact PTH is below goal. Document Manager will adjust binders and vitamin D [...]
--- OUTSIDE RECORDS SUMMARY | 2021-11-18 12:40 | XMS_ITS | Encounter Summary ---
:1945 Author Organization [facility] Address [address] [place] [address] Care Team Providers Name Role Phone Unavailable Primary Care Provider Unavailable Encounter Details Date Type Department Care Team Description 09/25/2019 Treatment [facility] O Ernie Gómez MD [address] [place] [address] [place], [place] [phone] [phone] (Wo rk) Social History Tobacco Use Types Packs/Day Years Used Date Smoking Tobacco: Unknown Comments: Smoking History Info:Patient n ot screened Sex Assigned at Date Recorded Not on file documented as of this encounter Miscellaneous Notes Dialysis Note - Ernie Pompa MD - 09/25/2019 10:54 AM CDT Date: Sep 25, 2019 Patient Name: Shuan Ocampo : 1945 Chart #: [id number] Sex: M This patient was personally seen [...] AM ) BP (sit): 156/55 AP(-) / IS TECHNICIAN: 212/172 Pulse: 63 Chairside data as [...] 08/23/2019 08/02/2019 Access Flow > 2000 1510 ART HISTORY INSTRUCTOR: Ernie Pompa MD LOCATION: [place] [phone] SCHEDULE: -- 2nd Shift EDW: kg. DIALYZER: [...] prescription. Vascular Access Assessment Type of access: [id number]/2019 Surgeon Annita KUMARW Access working well Anemia [...] at goal. Intact PTH is below goal. Production Control Planner will adjust binders and vitamin D per [...]
--- OUTSIDE RECORDS SUMMARY | 2021-11-18 12:40 | XMS_ITS | Encounter Summary ---
:1945 Author Organization [facility] Address [address] [place] [address] Care Team Providers Name Role Phone Unavailable Primary Care Provider Unavailable Encounter Details Date Type Department Care Team Description 09/18/2019 Orders [facility] O f Ernie Guzmán MD [address] [place] [address] [place], [place] [phone] (Wo rk) Social History Tobacco Use [...] 09/20/2019 Unless otherwise specified, test(s) performed at: [facility], [address] [place] [address] FOREST EXAMINER: Alec Payan M.D. For any questions, please call customer service at FREQUENCY:MONTHLY Resulting Agency Comment Specimen source: Plasma Ernie Pompa MD LAB BLOOD ORDERABLES Performing Organization Address City/[facility]/ZIP Code Phon e Number APS SPECTRA [...] 09/19/2019 Unless otherwise specified, test(s) performed at: [facility], [address] [place], [place] [id number] FOREST EXAMINER: Alec Payan M.D. For any questions, please call customer service at FREQUENCY:MONTHLY Resulting Agency Comment Specimen source: Plasma Ernie Pompa MD LAB BLOOD ORDERABLES Performing Organization Address City/[facility]/ZIP Code Phon e Number [facility] IMMUNO CHEMISTRY (09/18/2019) athologist Signature Hep B Surface Negative Negative APS SPECTRA Ag [facility] Specimen (Source) Anatomical Collection Method Collection Time Re ceived Time Location / / Volume Laterality 09/18/2019 09/19/2019 2:37 PM CDT Resulting Agency Comment Specimen source: Serum Ernie Pompa MD LAB BLOOD ORDERABLES Performing Organization Address [facility] Code Phon e Number [...] TEST ORDERABL ES Performing Organization Address City/[facility]/ZIP Code Phon e Number APS SPECTRA [...] 09/19/2019 Unless otherwise specified, test(s) performed at: [facility], [address] [place] [address] FOREST EXAMINER: Alec Payan M.D. For any questions, please call customer service at FREQUENCY:MONTHLY Resulting Agency Comment Specimen source: Serum Ernie Pompa MD LAB BLOOD ORDERABLES Performing Organization Address City/State/ZIP Code Phon e Number [facility] (ABNORMAL) HEMATOLOGY (09/18/2019) [facility] gist Method Time Signature WBC 5.19 [...] 09/19/2019 Unless otherwise specified, test(s) performed at: [facility], [address] [place] [address] FOREST EXAMINER: Alec Payan M.D. For any questions, please call customer service at FREQUENCY:MONTHLY Resulting Agency Comment Specimen source: Blood Ernie Pompa MD LAB BLOOD ORDERABLES Performing Organization Address City/State/ZIP Code Phon e Number [facility] documented in this encounter Visit Diagnoses Not on filedocumented in this encounter
--- OUTSIDE RECORDS SUMMARY | 2021-11-18 12:40 | XMS_ITS | Encounter Summary ---
:1945 Author Organization [facility] Address [address] [place] [address] Care Team Providers Name Role Phone Unavailable Primary Care Provider Unavailable Encounter Details Date Type Department Care Team Description 10/09/2019 Treatment [facility] O Ernie Gómez MD [address] [place] [address] [place], [place] [phone] [phone] (Wo rk) Social History Tobacco Use Types Packs/Day Years Used Date Smoking Tobacco: Unknown Comments: Smoking History Info:Patient n ot screened Sex Assigned at Date Recorded Not on file documented as of this encounter Miscellaneous Notes Dialysis Note - Ernie Pompa MD - 10/09/2019 12:54 PM CDT Date: Oct 09, 2019 Patient Name: Shaun Ocampo : 1945 Chart #: [id number] Sex: M This patient was personally seen [...] PM ) BP (sit): 135/54 AP(-) / TERRAZZO TILE MAKER: 204/180 Pulse: 65 Chairside data as of [...] 1000 units IVP Every Treatment 05/01/2019 04/29/2020 SPOOL CARRIER: Ernie Pompa MD LOCATION: [phone] SCHEDULE: M-W- 2nd Shift ACCESS: EDW: kg. [...] He had infiltration last week, dialyzed at [facility] on Sat and went well, access ok [...] (06/19/19) Vascular Access Assessment: Type of access: [id number]/2019 Surgeon - Lary GARDNER Access working well [...]
--- OUTSIDE RECORDS SUMMARY | 2021-11-18 12:40 | XMS_ITS | Encounter Summary ---
:1945 Author Organization [facility] Address [address] [place] [address] Care Team Providers Name Role Phone Unavailable Primary Care Provider Unavailable Encounter Details Date Type Department Care Team Description 10/09/2019 Orders [facility] O f Ernie Guzmán MD [address] [place] [address] [place], [place] [phone] (Wo rk) Social History Tobacco Use [...] 10/10/2019 Unless otherwise specified, test(s) performed at: [facility], [address] [place] [address] KNOT TYING OPERATOR: Alec Payan M.D. For any questions, please call customer service at FREQUENCY:OTHER Resulting Agency Comment Specimen source: Serum Ernie Pompa MD LAB BLOOD ORDERABLES Performing Organization Address City/State/[facility] Code Phon e Number APS [...] 10/10/2019 Unless otherwise specified, test(s) performed at: [facility], [address] [place] [address] KNOT TYING OPERATOR: Alec Payan M.D. For any questions, please call customer service at FREQUENCY:OTHER Resulting Agency Comment Specimen source: Blood Ernie Pompa MD LAB BLOOD ORDERABLES Performing Organization Address City/[facility] Code Phon e Number [facility]RA [facility] documented in this encounter Visit Diagnoses Not on filedocumented in this encounter
--- OUTSIDE RECORDS SUMMARY | 2021-11-18 12:40 | XMS_ITS | Encounter Summary ---
:1945 Author Organization [facility] Address [address] [place] [address] Care Team Providers Name Role Phone Unavailable Primary Care Provider Unavailable Encounter Details Date Type Department Care Team Description 11/13/2019 Orders [facility] O f Ernie Guzmán MD [address] [place] [address] [place], [place] [phone] (Wo rk) Social History Tobacco Use [...] 11/14/2019 Unless otherwise specified, test(s) performed at: [facility], [address] [place] [address] CHEMICAL RECLAMATION EQUIPMENT OPERATOR: Alec Payan M.D. For any questions, [...] 11/14/2019 Unless otherwise specified, test(s) performed at: [facility], [address] [place] [address] CHEMICAL RECLAMATION EQUIPMENT OPERATOR: Alec Payan M.D. For any questions, please call customer service at FREQUENCY:OTHER Resulting Agency Comment Specimen source: Blood Ernie Pompa MD LAB BLOOD ORDERABLES Performing Organization Address City/[facility] Phon e Number APS SPECTRA [facility] documented in this encounter Visit Diagnoses Not on filedocumented in this encounter
--- OUTSIDE RECORDS SUMMARY | 2021-11-18 12:40 | XMS_ITS | Encounter Summary ---
:1945 Author Organization [facility] Address [address] [place] [address] Care Team Providers Name Role Phone Unavailable Primary Care Provider Unavailable Encounter Details Date Type Department Care Team Description 10/16/2019 Orders Only [facility] O f Ernie Guzmán MD [phone] [place] [address] [place], [place] [phone] (Wo rk) Social History Tobacco Use [...] in this encounter Results (ABNORMAL) HEMATOLOGY (10/16/2019) [facility] gist Method Time Signature Neutrophils 74.6 [...] 10/17/2019 Unless otherwise specified, test(s) performed at: [facility], [address] [place] [address] OVERHEAD WORKER: Alec Payan M.D. For any questions, please call customer service at FREQUENCY:OTHER Resulting Agency Comment Specimen source: Blood Ernie Pompa MD LAB BLOOD ORDERABLES Performing Organization Address City/State/ZIP Code Phon e Number [facility] documented in this encounter Visit Diagnoses Not on filedocumented in this encounter
--- OUTSIDE RECORDS SUMMARY | 2021-11-18 12:40 | XMS_ITS | Encounter Summary ---
:1945 Author Organization [facility] Address [address] [place] [address] Care Team Providers Name Role Phone Unavailable Primary Care Provider Unavailable Encounter Details Date Type Department Care Team Description 11/20/2019 [facility] O f Ernie Guzmán MD [phone] [place] [address] [place], [place] [phone] (Wo rk) Social History Tobacco Use [...] 11/21/2019 Unless otherwise specified, test(s) performed at: [facility], [address] [place] [address] DEVICE REPAIR TECHNICIAN: Alec Payan M.D. For any [...] [facility] (ABNORMAL) [facility] Chemistry (11/20/2019) [facility] Method Time Signature BUN 51 (H) [...] 11/21/2019 Unless otherwise specified, test(s) performed at: [facility], [address] [place] [address] DEVICE REPAIR TECHNICIAN: Alec Payan M.D. For any questions, please call customer service at FREQUENCY:MONTHLY Resulting Agency Comment Specimen source: Serum Ernie Pompa MD LAB BLOOD ORDERABLES Performing Organization Address City/State/ZIP Code Phon e Number [facility] (ABNORMAL) HEMATOLOGY (11/20/2019) [facility] gist Method Time Signature WBC 6.23 [...] 11/21/2019 Unless otherwise specified, test(s) performed at: [facility], [address] [place] [address] DEVICE REPAIR TECHNICIAN: Alec Payan M.D. For any questions, please call customer service at FREQUENCY:MONTHLY Resulting Agency Comment Specimen source: Blood Ernie Pompa MD LAB BLOOD ORDERABLES Performing Organization Address City/State/ZIP Code Phon e Number [facility] documented in this encounter Visit Diagnoses Not on filedocumented in this encounter
--- OUTSIDE RECORDS SUMMARY | 2021-11-18 12:40 | XMS_ITS | Encounter Summary ---
:1945 Author Organization [facility] Address [address] [place] [address] Care Team Providers Name Role Phone Unavailable Primary Care Provider Unavailable Encounter Details Date Type Department Care Team Description 09/25/2019 [facility] O f Ernie Guzmán MD [phone] [place] [address] [place], [place] [phone] (Wo rk) Social History Tobacco Use [...] in this encounter Results (ABNORMAL) HEMATOLOGY (09/25/2019) [facility] gist Method Time Signature Neutrophils 74.2 [...] 09/26/2019 Unless otherwise specified, test(s) performed at: [facility], [address] [place], [place] [id number] RISK CONTROL ANALYST: Alec Payan M.D. For any questions, please call customer service at FREQUENCY:OTHER Resulting Agency Comment Specimen source: Blood Ernie Pompa MD LAB BLOOD ORDERABLES Performing Organization Address City/State/ZIP Code Phon e Number [facility] documented in this encounter Visit Diagnoses Not on filedocumented in this encounter
--- OUTSIDE RECORDS SUMMARY | 2021-11-18 12:40 | XMS_ITS | Encounter Summary ---
:1945 Author Organization [facility] Address [address] [place] [address] Care Team Providers Name Role Phone Unavailable Primary Care Provider Unavailable Encounter Details Date Type Department Care Team Description 10/28/2019 [facility] O f Ernie Guzmán MD [address] [place] [address] [place], [place] [phone] (Wo rk) Social History Tobacco Use [...] i n the results section . [facility] LAB RESULTS Routine 10/28/2019 Resul ts for [...] LAB BLOOD ORDERABLES Performing Organization Address City/[facility] Phon e Number [facility] POST CHEMISTRY (10/28/2019) P athologist Signature BUN Post 13 6 - 19 [facility] Dialysis mg/dL [facility] Specimen (Source) Anatomical Collection Method Collection Time Re ceived Time Location / / Volume Laterality 10/28/2019 10/31/2019 3:11 PM CDT Narrative [facility] - 10/31/2019 Unless otherwise specified, test(s) performed at: [facility], [address] [place] [address] BUILDING CONSTRUCTION IRONWORKER: Alec Payan M.D. For any questions, please call customer service at FREQUENCY:OTHER Resulting Agency Comment Specimen source: Plasma Ernie Pompa MD LAB BLOOD ORDERABLES Performing Organization Address [facility] Phon e Number [facility] (ABNORMAL) [facility] Chemistry (10/28/2019) P athologist Signature BUN 54 (H) 6 - 19 [facility] mg/dL [facility] Specimen (Source) Anatomical Collection Method Collection Time Re ceived Time Location / / Volume Laterality 10/28/2019 10/29/2019 4:43 PM CDT Narrative [facility] - 10/29/2019 Unless otherwise specified, test(s) performed at: [facility], [address] [place] [address] BUILDING CONSTRUCTION IRONWORKER: Alec Payan M.D. For any questions, please call customer service at FREQUENCY:OTHER Resulting Agency Comment Specimen source: Serum Ernie Pompa MD LAB BLOOD ORDERABLES Performing Organization Address [facility] Phon e Number [facility] documented in this encounter Visit Diagnoses Not on filedocumented in this encounter
--- OUTSIDE RECORDS SUMMARY | 2021-11-18 12:40 | XMS_ITS | Encounter Summary ---
:1945 Author Organization [facility] Address [address] [place] [address] Care Team Providers Name Role Phone Unavailable Primary Care Provider Unavailable Encounter Details Date Type Department Care Team Description 10/23/2019 [facility] O f Ernie Guzmán MD [phone] [place] [address] [place], [place] [phone] (Wo rk) Social History Tobacco Use [...] 10/25/2019 Unless otherwise specified, test(s) performed at: [facility], [address] [place] [address] DOOR PATCHER: Alec Payan M.D. For any questions, please call customer service at FREQUENCY:MONTHLY Resulting Agency Comment Specimen source: Serum Ernie Popma MD LAB BLOOD ORDERABLES Performing Organization Address City/State/ZIP Code Phon e Number [facility] (ABNORMAL) HEMATOLOGY (10/23/2019) [facility] gist Method Time Signature WBC 6.46 [...] 10/24/2019 Unless otherwise specified, test(s) performed at: [facility], [address] [place] [address] DOOR PATCHER: Alec Payan M.D. For any questions, please call customer service at FREQUENCY:MONTHLY Resulting Agency Comment Specimen source: Blood Ernie Pompa MD LAB BLOOD ORDERABLES Performing Organization Address City/State/ZIP Code Phon e Number [facility] documented in this encounter Visit Diagnoses Not on filedocumented in this encounter
--- OUTSIDE RECORDS SUMMARY | 2021-11-18 12:40 | XMS_ITS | Encounter Summary ---
:1945 Author Organization [facility] Address [address] [place] [address] Care Team Providers Name Role Phone Unavailable Primary Care Provider Unavailable Encounter Details Date Type Department Care Team Description 11/20/2019 Treatment [facility] O Ernie Gómez MD [address] [place] [address] [place], [place] [address] [phone] (Wo rk) Social History Tobacco Use Types Packs/Day Years Used Date Smoking Tobacco: Unknown Comments: Smoking History Info:Patient n ot screened Sex Assigned at Date Recorded Not on file documented as of this encounter Miscellaneous Notes Dialysis Note - Ernie Pompa MD - 11/20/2019 11:34 AM CDT Date: Nov 20, 2019 Patient Name: Shaun Ocampo : 1945 Chart #: [id number] Sex: M This patient was personally seen [...] AM ) BP (sit): 126/49 AP(-) / LUNG GUN OPERATOR: 230/186 Pulse: 64 Chairside data as of [...] 08/23/2019 Access Flow [id number] > 2000 AIR HOSE COUPLER: Ernie Pompa MD LOCATION: [place] [phone] SCHEDULE: -W- 2nd Shift EDW: kg. DIALYZER: [...] prescription. Vascular Access Assessment Type of access: [id number]/2019 Surgeon - Lary GARDNER Access working well [...] above goal. Intact PTH is below goal. Master Cosmetologist will adjust binders and vitamin D per [...]
--- OUTSIDE RECORDS SUMMARY | 2021-11-18 12:40 | XMS_ITS | Encounter Summary ---
:1945 Author Organization [facility] Address [address] [place] [address] Care Team Providers Name Role Phone Unavailable Primary Care Provider Unavailable Encounter Details Date Type Department Care Team Description 11/04/2019 [facility] Only [facility] O f Ernie Guzmán MD [address] [place] [address] [place], [place] [phone] (Wo rk) Social History Tobacco Use [...] in this encounter Results (ABNORMAL) HEMATOLOGY (11/04/2019) [facility] gist Method Time Signature Neutrophils 77.4 [...] 11/05/2019 Unless otherwise specified, test(s) performed at: [email or web address], [address] [place] [address] RIGGING MAN: Alec Payan M.D. For any questions, please call customer service at FREQUENCY:OTHER Resulting Agency Comment Specimen source: Blood Ernie Pompa MD LAB BLOOD ORDERABLES Performing Organization Address City/State/ZIP Code Phon e Number [facility] documented in this encounter Visit Diagnoses Not on filedocumented in this encounter
--- OUTSIDE RECORDS SUMMARY | 2021-11-18 12:40 | XMS_ITS | Encounter Summary ---
:1945 Author Organization [facility] Address [address] [place] [address] Care Team Providers Name Role Phone Unavailable Primary Care Provider Unavailable Encounter Details Date Type Department Care Team Description 11/06/2019 [facility] Only [facility] O f Ernie Guzmán MD [address] [place] [address] [place], [place] [phone] (Wo rk) Social History Tobacco Use [...] this encounter Results (ABNORMAL) HEMATOLOGY (11/06/2019) [facility] gist Method Time Signature Neutrophils 75.2 [...] 11/07/2019 Unless otherwise specified, test(s) performed at: [facility], [address] [place] [address] ADMINISTRATION PROFESSIONAL: Alec Payan M.D. For any questions, please call customer service at FREQUENCY:OTHER Resulting Agency Comment Specimen source: Blood Ernie Pompa MD LAB BLOOD ORDERABLES Performing Organization Address City/State/ZIP Code Phon e Number [facility] documented in this encounter Visit Diagnoses Not on filedocumented in this encounter
--- OUTSIDE RECORDS SUMMARY | 2021-11-18 12:40 | XMS_ITS | Encounter Summary ---
:1945 Author Organization [facility] Address [address] [place] [address] Care Team Providers Name Role Phone Unavailable Primary Care Provider Unavailable Encounter Details Date Type Department Care Team Description 09/11/2019 Orders [facility] O f Ernie Guzmán MD [address] [place] [address] [place], [place] [phone] (Wo rk) Social History Tobacco Use [...] in this encounter Results (ABNORMAL) HEMATOLOGY (09/11/2019) [facility] gist Method Time Signature Neutrophils [...] 09/13/2019 Unless otherwise specified, test(s) performed at: [facility], [address] [place] [address] REHABILITATION CLERK: Alec Payan M.D. For any questions, please call customer service at FREQUENCY:OTHER Resulting Agency Comment Specimen source: Blood Ernie Pompa MD LAB BLOOD ORDERABLES Performing Organization Address City/State/ZIP Code Phon e Number [facility] documented in this encounter Visit Diagnoses Not on filedocumented in this encounter
--- OUTSIDE RECORDS SUMMARY | 2021-11-18 12:40 | XMS_ITS | Encounter Summary ---
:1945 Author Organization [facility] Address [address] [place] [address] Care Team Providers Name Role Phone Unavailable Primary Care Provider Unavailable Encounter Details Date Type Department Care Team Description 10/02/2019 Orders [facility] O f Ernie Guzmán MD [address] [place] [address] [place], [place] [phone] (Wo rk) Social History Tobacco Use [...] in this encounter Results (ABNORMAL) HEMATOLOGY (10/02/2019) [facility] gist Method Time Signature Neutrophils 74.2 [...] 10/03/2019 Unless otherwise specified, test(s) performed at: [facility], [address] [place] [address] UNIT ASSISTANT: Alec Payan M.D. For any questions, please call customer service at FREQUENCY:OTHER Resulting Agency Comment Specimen source: Blood Ernie Pompa MD LAB BLOOD ORDERABLES Performing Organization Address City/State/ZIP Code Phon e Number [facility] documented in this encounter Visit Diagnoses Not on filedocumented in this encounter
--- OUTSIDE RECORDS SUMMARY | 2021-11-18 12:41 | XMS_ITS | Encounter Summary ---
:1945 Author Organization [facility] Address [address] [place] [address] Care Team Providers Name Role Phone Unavailable Primary Care Provider Unavailable Encounter Details Date Type Department Care Team Description 07/17/2019 Orders Only [facility] O f Ernie Guzmán MD [address] [place] [address] [place], [place] [phone] (Wo rk) Social History Tobacco Use [...] 07/18/2019 Unless otherwise specified, test(s) performed at: [facility], [address] [place] [address] [employer]STR[employer]IAN RULES FOOTBALLER: Alec Payan M.D. For any questions, please call customer service at FREQUENCY:OTHER Resulting Agency Comment Specimen source: Blood Ernie Pompa MD LAB BLOOD ORDERABLES Performing Organization Address City/State/ZIP Code Phon e Number [facility] documented in this encounter Visit Diagnoses Not on filedocumented in this encounter
--- OUTSIDE RECORDS SUMMARY | 2021-11-18 12:41 | XMS_ITS | Encounter Summary ---
:1945 Author Organization [facility] Address [address] [place] [address] Care Team Providers Name Role Phone Unavailable Primary Care Provider Unavailable Encounter Details Date Type Department Care Team Description 06/05/2019 Treatment [facility] O f Ernie Guzmán MD [address] [place] [address] [place], [place] [phone] (Wo rk) Social History Tobacco Use Types Packs/Day Years Used Date Smoking Tobacco: Unknown Comments: Smoking History Info:Patient n ot screened Sex Assigned at Date Recorded Not on file documented as of this encounter Miscellaneous Notes Dialysis Note - Ernie Pompa MD - 06/05/2019 5:14 PM CDT Date: Jun 05, 2019 Patient Name: Shaun Ocampo : 1945 Chart #: [id number] Sex: M This patient was personally seen for a basic visit as part of routine weekly dialysis care. A reviewof the dialysis treatment, blood pressure, estimated dry weight and recent lab values was made. These were discussed with the patient and staff as necessary. ACCOUNTING MACHINE MECHANIC: Ernie Pompa MD LOCATION: [phone] SCHEDULE: M-W-F 2nd Shift ACCESS: EDW: kg. [...] (05/01/19) Vascular Access Assessment: Type of access: [id number] Surgeon - Lary KUMARW Advanced needles to [...]
--- OUTSIDE RECORDS SUMMARY | 2021-11-18 12:41 | XMS_ITS | Clinical Summary ---
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 Blood products may be delayed. Draw p atient 24 hours prior to transfusion. Dr espinoza one red top and two purple top tube s for all type and sc reen orders. Homeopathic Products Runny Nose 08/13/2008 Lisinopril Cough 06/07/2006 Medications Medication Sig Dispensed Refills Start Date End Date Status aspirin (ASPIRIN EC) Take 81 mg by 0 Active 81 mg enteric coated mouth once daily tablet with a meal. oxygen-air delivery Oxygen for home 1 Device 0 03/12/2019 Active systems (HOME use. Liters per OXYGEN)Indications: minute: 1-2 per Pulmonary HTN (HC) nasal cannula Continuous with portability. Length of need: 3 Months. durable medical Farrow wraps, 1 Each 0 06/17/2019 Active equipment right leg (DME)Indications: [id number],circumf Lymphedema diqjph85ii, left leg djsasw80mqzmhinpnz zqlal26fk diagnosislymphedem aI89.0 MICROLET TEST DAILY 100 Each 3 07/25/2019 Active LANCETIndications: Type 2 diabetes mellitus with stage 5 chronic kidney disease not on chronic dialysis, without long-term current use of insulin (HC) lidocaine-prilocaine APPLY SMALL AMOUNT 0 03/30/2020 Active (EMLA) 2.5-2.5 % TO ACCESS SITE cream (AVF) 1 TO 2 HOURS BEFORE DIALYSIS. COVER WITH OCCLUSIVE DRESSING (SARAN WRAP) sevelamer carbonate Uses at dialysis 0 04/29/2020 Active (RENVELA) 800 mg tab tablet medication order Calcitriol Mon, 0 Active composer Mon, and Fridays on dialysis days amoxicillin (AMOXIL) 4 capsules oral 4 Capsule 3 07/23/2020 Active 500 mg one hour before capsuleIndications: procedure. Need for SBE (subacute bacterial endocarditis) prophylaxis metoprolol succinate Take 0.5 Tablets 45 tablet. 3 12/15/2020 Active (TOPROL XL) 25 mg (12.5 mg) by mouth Sustained-Release once daily. tabletIndications: Essential hypertension atorvastatin Take 1 Tablet (20 90 Tablet 3 12/15/2020 Active (LIPITOR) 20 mg mg) by mouth once tabletIndications: daily. Diabetes mellitus with neurological manifestations, uncontrolled allopurinoL Take 1 Tablet (100 90 Tablet 3 12/15/2020 Active (ZYLOPRIM) 100 mg mg) by mouth once tabletIndications: daily. Essential hypertension b complex-vitamin Take 1 Capsule by 90 Capsule 3 12/15/2020 Active c-folic acid 1 mg mouth once daily. (Triphrocaps) 1 mg capsuleIndications: Stage 4 chronic kidney disease (HC) fluticasone (50 mcg Inhale 1 [place] to 16 g 12 12/15/2020 Active per actuation) nasal both nostrils once solution daily. (FLONASE)Indications: Allergic rhinitis due to pollen, unspecified seasonality Contour Next Test TEST ONCE DAILY 100 Each 04/03/2021 Active Strips stripIndications: Type 2 diabetes mellitus with stage 5 chronic kidney disease not on chronic dialysis, without long-term current use of insulin (HC) albuterol-ipratropium Inhale 3 mL via a 180 mL 07/04/2021 Active (DUONEB) (2.5-0.5 mg) nebulizer every 6 in 3 mL NEBULIZATION hours if needed solutionIndications: for Shortness of Bronchospasm Breath 1st choice. fluticasone Inhale 2 Puffs by 36 g 07/04/2021 Active propion-salmeteroL mouth every 12 (ADVAIR) 115-21 hours. mcg/actuation inhalerIndications: Bronchospasm pantoprazole Take 1 Tablet (40 90 Tablet 3 10/15/2021 Active (PROTONIX) 40 mg mg) by mouth once delayed-release daily before a tabletIndications: meal. Chronic GERD Active Problems Problem Noted Date Depression, recurrent 10/15/2021 Primary osteoarthritis of knees, bilateral 06/09/2021 Overview: May 2021: bilateral cortisone knee inj ections by Dr. Lara. 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 No Coumadin needed for tissue AVR, js mmend Aspirin 325mg daily X1 month, then 81 mg daily indefinitely. Coronary atherosclerosis of unspecified type of vessel , augustine or graft 04/04/2007 Overview: Angiogram/PCI 04/04/07: LAD: 70% stenosis mid, 90% distal. LCx: mild luminal irregularities. RCA: dominant, mild luminal irregularities. EF 60%. LV Pressure = 168/24. RA=12; RV=40/15; PW=16; PA=32/17, me an 22. PCI: TAXUS Stent to Mid LAD, PTCA /BMS to Distal LAD. Unspecified essential hypertension 06/07/2006 Other and unspecified hyperlipidemia 06/07/2006 ESOPHAGEAL REFLUX/BARRETTS ESOPHAGUS 06/07/2006 NEUROPATHY IN OTHER DISEASE/DIABETES 06/07/2006 DM Neuro Manif Type II 02/18/2002 Osteoarthrosis, unspecified whether generalized or loc alized, unspecified site CKD (chronic kidney disease) stage 5, GFR less than 15 ml/min Heart failure with preserved ejection fraction Overview: ef 67% 02/2019 Resolved Problems Problem Noted Date Resolved Date COPD exacerbation 12/15/2020 05/18/2021 Acute renal failure superimposed on stage 5 chronic kidney 0 04/25/2019 07/17/2020 disease, not on chronic dialysis Hypoglycemia 04/25/2019 07/17/2020 Hyperkalemia 04/17/2019 07/17/2020 Skin ulcer of toe, limited to breakdown of skin 03/28/2019 07/17/2020 Encounter for fitting and adjustment of extracorporeal 03/2807/17/2020 dialysis catheter PMR (polymyalgia rheumatica) 03/28/2019 07/17/2020 Venous stasis ulcer of right ankle limited to breakdown of 0 03/28/2019 07/17/2020 skin with varicose veins GAVI (acute kidney injury) 03/05/2019 04/17/2019 Brannon's esophagus 10/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 Tachycardia 10/06/2008 07/17/2020 Atrial flutter 10/06/2008 12/15/2020 Overview: - New onset 09/25, s/p DCCV 10/07/08. Acute renal insufficiency 10/06/2008 04/17/2019 Hyponatremia 09/16/2008 04/17/2019 Postoperative Sternal Wound Infection 09/16/2008 Morbid obesity 09/03/2008 05/18/2021 Iron deficiency anemia, unspecified 08/13/200806/20 Overview: Admitted to [facility] 08/12/08 with Hgb 5.6, ferritin 5. Negative colonoscopy. 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 Reportedly negative outpatient capsule study. Chest pain, unspecified 07/17/2020 AORTIC VALVE DISORDER: Moderate to severe 07/17/2020 Overview: -Echo 03/29/07: Mild concentric LVH with normal wall motion. EF 55-60%. Marked KIERAN. Mod . CLAUS 1.3 cm sq. Mean gradient 24 mmHg. Mild TN, TI. Mild pulmonary hypertension. RVSP 39 mmHg +RAP. -S/P AVR 09/03/2008 Acute CHF 07/26/2010 Overview: -Mar 2007 admission to [facility] al End stage renal disease 07/17/2020 Mitral stenosis 07/17/2020 Overview: Moderate to severe by echo 02/2019 Encounters Date Type Specialty Care Team Description 10/15/2021 Office Visit Liban Leos, Matt londono F/U ([place] MD Kee, 10/09/19 22 - 10/11/2021, mala jung ) 10/15/2021 Travel 10/08/2021 Orders Only Scanner <No scans attac hed> from Last 3 Months Immunizations Name Administration Dates Next Due AMB INFLUENZA IIV3 (AGE 65+ YRS) PF 12/28/2018 (Flu Clinic Only) COVID-19 vaccine (Moderna 05/11/2020, 04/17/2020 100mcg/0.5mL) PF, MDV COVID-19 vaccine (Rebtel-Motosmarty 10/15/2021 30mcg/0.3mL) 12YO+ THOMAS-SUCROSE PF, MDV Influenza, High-dose Inactivated 12/09/2015, 03/12/2015, Influenza, IIV3 (Age 6-35 mos) 02/01/2011 Influenza, IIV3 (Age >=3 years) 04/19/2013, 04/03/2012, 01/18, 12/21/2009, 12/30/2008 Influenza, IIV4 12/04/2019 Influenza, Inactivated IIV3 (Age 65+ 01/04/2018, 01/11/2017 Years) Preserv Free Pneumococcal Poly,23-Valent 12/09/2015, 10/07/2008 (Pneumovax) Pneumococcal conj 13-Valent (Prevnar 08/21/2014 13) Td (Age >=7 Years) 03/20/1997 Tdap 08/29/2008 Family History Medical History Relation Name Comments Hypertension Father Diabetes Maternal Grandmother Heart Disease Mother Diabetes Paternal Grandmother Anesthesia Malignant Hyperthermia No Family History Cancer-colon No Family History Cancer-prostate No Family History Relation Name Status Comments Father Maternal Grandmother Mother Paternal Grandmother Social History Tobacco Use Types Packs/Day Years Used Date Never Smoker 10 Smokeless Tobacco: Former User Chew Q uit: 04/02/1992 Tobacco Cessation: Counseling Given: Yes Comments: only chewed for 2 yrs Alcohol Use Standard Drinks/Week Comments No 0 (1 standard drink = 0.6 oz pure alcoho l) Sex Assigned at Date Recorded Not on file Obstetrics History Last Filed Vital Signs Vital Sign Reading Time Taken Comments Blood Pressure 90/38 10/15/2021 1:26 PM CDT Pulse 55 10/15/2021 1:26 PM CDT Temperature 36.6 ??C (97.9 ??F) 07/21/2020 6:00 PM CDT Respiratory Rate 16 07/21/2020 6:30 PM CDT Oxygen Saturation 97% 10/15/2021 1:26 PM CDT Inhaled Oxygen Concentration - - Weight 112.5 kg (248 lb 0.3 oz) 10/15/2021 1:26 PM CDT Height 171.7 cm (5' 7.6) 12/15/2020 8:05 AM CDT Body Mass Index 38.16 12/15/2020 8:05 AM CDT Plan of Treatment Upcoming Encounters Date Type Specialty Care Team Description 11/30/2021 Orders Only Lab, [place] 12/02/2021 Office Visit Liban Leos MD [address] [place] [address] (Wo rk) Health Maintenance Due Date Last Done Comments Hepatitis C screening for age 0508/05/1963 18-79 Zoster (shingles) series for age 0508/05/1965 50+ (1 of 2) Colonoscopy through age 75 08/18/2018 08/18/2008 Tetanus booster 08/29/2018 08/29/2008, 03/20/1997 Influenza for age 65+ 11/18/2021 12/04/2019, 12/28/2018, 01/04/2018, Additional history exists BMI (ht and wt on same day) for 12/15/2021 12/15/2020, 11/19, age 18+ 05/03/2019, Additional history exists Medicare Wellness for age 65+ 12/15/2021 12/15/2020, 2011 Depression screening for age 12+ 12/16/2021 12/16/2020, , 12/18/2019, Additional history exists COVID-19 vaccine series (4 - 02/15/2022 10/15/2021, 021, Booster for Moderna series) 04/17/2020 Lipids for age 45-75 12/08/2025 12/08/2020, 12/17/2019, 02/22/2018, Additional history exists Tdap Completed 08/29/2008 Pneumococcal series for age 65+ Completed 12/09/2015, 06/2014, 10/07/2008 Medical Devices Implanted Type Area Cook Mess Device Shelf Model / Identifier Expiration Serial / Date Lot Anw Hh [id number] Cv Implants N/A: Trinidad 07/13/2010 30 [id number] / Implanted: Qty: 1 on 09/03/2008 at [facility] Aortic [employer]iences [id number] / Explanted: at [facility] (Quantity not on file) Valve Jaclyn Procedures Procedure Name Priority Date/Time Associated Diagnosis Comme nts SCAN-CT INTERPRETATION 10/08/2021 12:00 AM CDT from Last 3 Months Results SCAN-CT INTERPRETATION (10/08/2021 12:00 AM CDT) Narrative This result has an attachment that is no t available. Scanner OTHER from Last 3 Months Insurance Payer Benefit Plan / Subscriber ID Effective Dates Phone Addre ss Type Group MEDICARE PART B MEDICARE PART B [id number] 2011-Sameer ATTN: CLAIMS - HB USE ONLY HB ONLY t [address] [place] [address] BLUE CROSS MR BLUE CROSS [id number] 2018-Sameer [address] [place] [id number] Advance Directives Latest Code Status on File Code Status Date Activated Date Inactivated Comments Full Code 07/21/2020 9:53 AM 07/21/2020 9:23 PM Code Status Discussion: Not Discussed Full Code 04/25/2019 10:38 PM 04/29/2019 6:50 PM Full Code 03/05/2019 4:04 PM 03/12/2019 4:23 PM Code Status Discussion: Discussed Full Code 10/06/2008 1:41 AM 10/20/2008 1:45 PM Full Code 09/14/2008 9:20 PM 09/19/2008 4:57 PM Care Teams Typing Secretary Relationship Specialty Start Date End Date Liban Leos MD PCP - General Family Practice 07/17/20 [facility] [address]
--- OUTSIDE RECORDS SUMMARY | 2021-11-18 12:41 | XMS_ITS | Encounter Summary ---
:1945 Author Organization [facility] Address [address] [place] [address] Care Team Providers Name Role Phone Unavailable Primary Care Provider Unavailable Encounter Details Date Type Department Care Team Description 06/26/2019 Treatment [facility] Ernie Guzmán MD [address] [place] [address] [place], [place] [phone] (Wo rk) Social History Tobacco Use Types Packs/Day Years Used Date Smoking Tobacco: Unknown Comments: Smoking History Info:Patient n ot screened Sex Assigned at Date Recorded Not on file documented as of this encounter Miscellaneous Notes Dialysis Note - Ernie Pompa MD - 06/26/2019 12:47 PM CDT Date: Jun 26, 2019 Patient Name: Shaun Ocampo : 1945 Chart #: [id number] Sex: M This patient was personally seen [...] PM ) BP (sit): 146/80 AP(-) / PROFESSOR OF EXERCISE SCIENCE: 248/209 Pulse: 79 Chairside data as of [...] 4:0 Actual Treatment Time 04:03 04:02 04:01 CORE STACKER: Ernie Pompa MD LOCATION: [place] [phone] SCHEDULE: -W- 2nd Shift EDW: kg. DIALYZER: [...] this. Vascular Access Assessment Type of access: Jvmpimt34/2019 Surgeon - Lary GARDNER Advanced needles to [...] at goal. Intact PTH is at goal. Land Manager will adjust binders and vitamin D [...]
--- OUTSIDE RECORDS SUMMARY | 2021-11-18 12:41 | XMS_ITS | Encounter Summary ---
:1945 Author Organization [facility] Address [address] [place] [address] Care Team Providers Name Role Phone Unavailable Primary Care Provider Unavailable Encounter Details Date Type Department Care Team Description 05/10/2019 Orders Only [facility] Ernei Guzmán MD [phone] [place] [address] [place], [place] [phone] (Wo rk) Social History Tobacco Use [...] / Volume Laterality 05/10/2019 05/11/2019 9:28 AM ENGINEERING OPERATIONS LEADER Narrative [facility] - 05/11/2019 Unless otherwise specified, test(s) performed at: [facility], [address] [place] [address] TERMINAL SUPERVISOR: Tawanna green M.D. For any questions, please call customer service at FREQUENCY:OTHER Resulting Agency Comment Specimen source: Blood Ernie Pompa MD LAB BLOOD ORDERABLES Performing Organization Address City/State/ZIP Code Phon e Number [facility] documented in this encounter Visit Diagnoses Not on filedocumented in this encounter
--- OUTSIDE RECORDS SUMMARY | 2021-11-18 12:41 | XMS_ITS | Encounter Summary ---
:1945 Author Organization [facility] Address [address] [place] [address] Care Team Providers Name Role Phone Unavailable Primary Care Provider Unavailable Encounter Details Date Type Department Care Team Description 06/19/2019 Orders Only [facility] Ernie Guzmán MD [address] [place] [address] [place], [place] [phone] (Wo rk) Social History Tobacco Use [...] 06/21/2019 Unless otherwise specified, test(s) performed at: [facility], [address] [place] [address] FOREST MANAGER: Alec Payan M.D. For any questions, [...] 06/21/2019 Unless otherwise specified, test(s) performed at: [facility], [address] [place] [address] FOREST MANAGER: Alec Payan M.D. For any questions, please call customer service at FREQUENCY:MONTHLY Resulting Agency Comment Specimen source: Serum Ernie Pompa MD LAB BLOOD ORDERABLES Performing Organization Address [facility] Phon e Number [facility] (ABNORMAL) Spectrae Chemistry (06/19/2019) P athologist Signature PTH 199 (H) 16 - 80 [facility] pg/mL [facility] Specimen (Source) Anatomical Collection Method Collection Time Re ceived Time Location / / Volume Laterality 06/19/2019 06/20/2019 3:50 PM CDT Resulting Agency Comment Specimen source: Plasma Ernie Pomap MD LAB BLOOD ORDERABLES Performing Organization Address City/[facility] Code Phon e Number [...] 06/21/2019 Unless otherwise specified, test(s) performed at: [facility], [address] [place] [address] FOREST MANAGER: Alec Payan M.D. For any questions, please call customer service at FREQUENCY:MONTHLY Resulting Agency Comment Specimen source: Blood Ernie Pompa MD LAB BLOOD ORDERABLES Performing Organization Address City/[facility] Phon e Number [facility] POST CHEMISTRY (06/19/2019) P athologist Signature BUN Post 13 6 - 19 [facility]PS [facility] Dialysis mg/dL [facility] Specimen (Source) Anatomical Collection Method Collection Time Re ceived Time Location / / Volume Laterality 06/19/2019 06/20/2019 5:07 PM CDT Narrative [facility] - 06/20/2019 Unless otherwise specified, test(s) performed at: [facility], [address] [place] [address] FOREST MANAGER: Alec Payan M.D. For any questions, please call customer service at FREQUENCY:MONTHLY Resulting Agency Comment Specimen source: Plasma Ernie Pompa MD LAB BLOOD ORDERABLES Performing Organization Address City/[facility] Phon e Number [facility] documented in this encounter Visit Diagnoses Not on filedocumented in this encounter
--- OUTSIDE RECORDS SUMMARY | 2021-11-18 12:41 | XMS_ITS | Encounter Summary ---
:1945 Author Organization [facility] Address [address] [place] [address] Care Team Providers Name Role Phone Unavailable Primary Care Provider Unavailable Encounter Details Date Type Department Care Team Description 06/05/2019 Orders Only [facility] f Ernie Guzmán MD [address] [place] [address] [place], [place] [phone] (Wo rk) Social History Tobacco Use [...] 06/06/2019 Unless otherwise specified, test(s) performed at: [facility], [address] [place] [address] PRODUCT MANAGEMENT MANAGER: Tawanna green M.D. For any questions, please call customer service at FREQUENCY:OTHER Resulting Agency Comment Specimen source: Blood Ernie Pompa MD LAB BLOOD ORDERABLES Performing Organization Address City/State/ZIP Code Phon e Number [facility] documented in this encounter Visit Diagnoses Not on filedocumented in this encounter
--- OUTSIDE RECORDS SUMMARY | 2021-11-18 12:41 | XMS_ITS | Continuity of Care Document ---
:1945 Author Organization [facility] Digestive [facility] Address [address] [address] [place] [address] Phone Care Team Providers Name Role Phone [...] rs Description For Visit Copied on Encounter [facility] [place] No Sep- Lizz CAMPBELL Digestive [facility] Information Joce. Health [place], Endoscopy [address] [address], [address], [address], [id number], [place], [place] [id number], tel:[phone] tel:[phone] Init Hosp-da [facility] No Sep- Lizz CAMPBELL Referr ing E&m Mod [facility] [place] Information 3 Joce. Provider : [facility], Hospital 2 [address] [facility] [facility] [place], [address], [address], [address] [place] [address], [place], [place], [place], [address], [id number], [place], [place] [id number], , [place], tel:+ [phone]. [phone] tel: tel:[phone] Subsqt [facility] Ramon No Desean MARTIN Referring Hosp-da E&m Digestive [facility] Information 4-200 Lisa. Provider: [facility], Hosp 9 [address] [facility] Jason [place] [address], [address], R, [address] [place] [address], [place], [place], [address], [id number], [place], [place] [id number], [place], [place], tel: [place]. [phone] tel: tel: [phone] Init Inpt [facility] Ramon No No Referring Cons New/est Digestive [facility] Information 2200 Informat ion Provider: [facility], Hosp [address] [place] [address] Jason [place] [address], R, [address] [place] [address], [place], [address], [id number], [place], [place], tel: [phone] tel:[phone] M[facility] Ramon No Nilton CAMPBELL Referring [facility] 9-200 [address]. 3001 P rovider: [facility], [address], Cash CAMPBELL [address], [address], [address], [address] [place] [facility] s, [place], [place], [place] [id number], [id number], [address], [place] tel: tel:+ s, [phone], [phone] . tel:[phone] Subsqt MNGI Ramon No Nesset FOOD SERVICE LEAD Referring Hosp-da E&m Digestive [facility] Information 8-200 Ailyn. 30 01 Provider: [facility], Hosp [address] [place] [address] [place] [address], [address], [address], [address] [place] [facility] [address], [place], [place], [address], [id number], [id number], [place] [facility]. s, [place], tel: tel:[phone]. [phone] tel:[phone] Init Inpt [facility]I Ramon No Cash CAMPBELL Referring Cons New/est Digestive [facility] Information 7-200 [address]. 3001 Provider: [facility], Hosp [address] [facility], Jason [place] [address], [address], [address], [address] [facility] [address], [place], [place], [address], [id number], [id number], [place] [facility]. s, [place], tel: tel:[phone] tel:[phone] Family History Family Member Type Diagnosis Age At Onset No Information Payers Payer name Insurance type Covered green party ID Authorization(s ) Blue Cross Medicare Advantage [id number] Social History Type Description Quantity Date Captured [...]
--- OUTSIDE RECORDS SUMMARY | 2021-11-18 12:41 | XMS_ITS | Encounter Summary ---
:1945 Author Organization [facility] Address [address] [place] [address] Care Team Providers Name Role Phone Unavailable Primary Care Provider Unavailable Encounter Details Date Type Department Care Team Description 06/12/2019 Orders Only [facility] f Ernie Guzmán MD [address] [place] [address] [place], [place] [phone] (Wo rk) Social History Tobacco Use [...] 06/13/2019 Unless otherwise specified, test(s) performed at: [facility], [address] [place] [address] CONSUMER SCIENCE TEACHER: Tawanna green M.D. For any questions, please call customer service at FREQUENCY:OTHER Resulting Agency Comment Specimen source: Blood Ernie Pompa MD LAB BLOOD ORDERABLES Performing Organization Address City/State/ZIP Code Phon e Number [facility] documented in this encounter Visit Diagnoses Not on filedocumented in this encounter
--- OUTSIDE RECORDS SUMMARY | 2021-11-18 12:41 | XMS_ITS | Encounter Summary ---
:1945 Author Organization [facility] Address [address] [place] [address] Care Team Providers Name Role Phone Unavailable Primary Care Provider Unavailable Encounter Details Date Type Department Care Team Description 07/24/2019 Orders Only [facility] f Ernie Guzmán MD [address] [place] [address] [place], [place] [phone] (Wo rk) Social History Tobacco Use [...] Provider LAB BLOOD ORDERABLES Performing Organization Address [facility] Phon e Number KAMERON (ABNORMAL) Spectrae Chemistry (07/24/2019) P athologist Signature PTH 164 (H) 16 - 80 APS SPECTRA pg/mL [facility] Specimen (Source) Anatomical Collection Method Collection Time Re ceived Time Location / / Volume Laterality 07/24/2019 07/25/2019 6:44 PM CDT Narrative APS SPECTRA [facility] - 07/26/2019 Unless otherwise specified, test(s) performed at: [facility], [address] [place] [address] COTA: Alec Payan M.D. For any questions, please call customer service at FREQUENCY:MONTHLY Resulting Agency Comment Specimen source: Plasma Ernie Pompa MD LAB BLOOD ORDERABLES Performing Organization Address [facility] Phon e Number APS SPECTRA [facility] HD KINETICS (07/24/2019) P athologist Signature % Urea 69 65 - 80 % APS SPECTRA Reduction [facility] Specimen (Source) Anatomical Collection Method Collection Time Re ceived Time Location / / Volume Laterality 07/24/2019 07/25/2019 7:05 PM CDT Narrative APS SPECTRA [facility] - 07/26/2019 Unless otherwise specified, test(s) performed at: [facility], [address] [place] [address] COTA: Alec Payan M.D. For any questions, please call customer service at FREQUENCY:MONTHLY Resulting Agency Comment Specimen source: Plasma Ernie Pompa MD LAB BLOOD ORDERABLES Performing Organization Address [facility] Phon e Number APS [...] 07/26/2019 Unless otherwise specified, test(s) performed at: [facility], [address] [place] [address] COTA: Alec Payan M.D. For any questions, please [...] 07/25/2019 Unless otherwise specified, test(s) performed at: [facility], [address] [place], [place] [phone] COTA: Alec Payan M.D. For any questions, please call customer service at FREQUENCY:MONTHLY Resulting Agency Comment Specimen source: Plasma Ernie Pompa MD LAB BLOOD ORDERABLES Performing Organization Address City/[facility] Phon e Number APS [...] 07/25/2019 Unless otherwise specified, test(s) performed at: [facility], [address] [place], [place] [phone] COTA: Alec Payan M.D. For any questions, please call customer service at FREQUENCY:MONTHLY Resulting Agency Comment Specimen source: Blood Ernie Pompa MD LAB BLOOD ORDERABLES Performing Organization Address City/State/ZIP Code Phon e Number APS SPECTRA [facility] documented in this encounter Visit Diagnoses Not on filedocumented in this encounter
--- OUTSIDE RECORDS SUMMARY | 2021-11-18 12:41 | XMS_ITS | Encounter Summary ---
:1945 Author Organization [facility] Address [address] [place] [address] Care Team Providers Name Role Phone Unavailable Primary Care Provider Unavailable Encounter Details Date Type Department Care Team Description 07/10/2019 Treatment [facility] O Ernie Gómez MD [address] [place] [address] [place], [place] [phone] (Wo rk) Social History Tobacco Use Types Packs/Day Years Used Date Smoking Tobacco: Unknown Comments: Smoking History Info:Patient n ot screened Sex Assigned at Date Recorded Not on file documented as of this encounter Miscellaneous Notes Dialysis Note - Ernie Pompa MD - 07/10/2019 11:42 AM CDT Date: Jul 10, 2019 Patient Name: Shaun Ocampo : 1945 Chart #: [id number] Sex: M This patient was personally seen [...] AM ) BP (sit): 136/58 AP(-) / LYRIC WRITER: n/a Pulse: 76 Chairside data as of [...] 4:0 Actual Treatment Time 04:04 04:02 04:04 SPARK PLUG TESTER: Ernie Pompa MD LOCATION: [place] [phone] SCHEDULE: M-W- 2nd Shift ACCESS: EDW: kg. [...] (05/01/19) Vascular Access Assessment: Type of access: [id number]/2019 Surgeon - Lary GARDNER Advanced needles to [...]
--- OUTSIDE RECORDS SUMMARY | 2021-11-18 12:41 | XMS_ITS | Encounter Summary ---
:1945 Author Organization [facility] Address [address] [place] [address] Care Team Providers Name Role Phone Unavailable Primary Care Provider Unavailable Encounter Details Date Type Department Care Team Description 05/15/2019 Orders Only [facility] O f Ernie Guzmán MD [address] [place] [address] [place], [place] [phone] (Wo rk) Social History Tobacco Use Types Packs/Day Years Used Date Smoking Tobacco: Unknown Comments: Smoking History Info:Patient n ot screened Sex Assigned at Date Recorded Not on file documented as of this encounter Plan of Treatment Not on filedocumented as of this encounter Procedures Procedure Name Priority Date/Time Associated Comments Diagnosis POST CHEMISTRY Routine 05/15/2019 2:24 PM Results for this ROOFING TILE SORTER procedure are i n the results section. HD KINETICS Routine 05/15/2019 10:08 AM Results for this ROOFING TILE SORTER procedure are i n the results section. HEMATOLOGY Routine 05/15/2019 10:08 AM Results for this ROOFING TILE SORTER procedure are i n the results section. CHEMISTRY Routine 05/15/2019 10:08 AM Results for this ROOFING TILE SORTER procedure are i n the results section. SPECTRA KAMERON LAB Routine 05/15/2019 Results for t his RESULTS procedure are i n the results section. documented in this encounter Results POST CHEMISTRY (05/15/2019 2:24 PM ROOFING TILE SORTER) P athologist Signature BUN Post APS SPECTRA Dialysis mg/dL [facility] Specimen Anatomical Collection Method Collection Time Receive d Time (Source) Location / / Volume Laterality 05/15/2019 2:24 PM 0 9:40 ROOFING TILE SORTER AM ROOFING TILE SORTER Narrative APS SPECTRA [facility] - 05/15/2019 2:[address] Unless otherwise specified, test(s) performed at: [facility], [address] [place] [address] ORGAN TUNER ELECTRONIC: Tawanna green M.D. For any questions, please call customer service at FREQUENCY:OTHER Resulting Agency Comment Specimen source: Plasma Ernie Pompa MD LAB BLOOD ORDERABLES Performing Organization Address [facility] Phon e Number APS SPECTRA [facility] (ABNORMAL) HD KINETICS (05/15/2019 10:08 AM ROOFING TILE SORTER) P athologist Signature % Urea 62 (L) 65 - 80 % APS SPECTRA Reduction [facility] Specimen Anatomical Collection Method Collection Time Receive d Time (Source) Location / / Volume Laterality 05/15/2019 10:08 05/16/2019 AM ROOFING TILE SORTER 10:07 AM ROOFING TILE SORTER Narrative APS SPECTRA [facility] - 05/15/2019 10:08 AM ROOFING TILE SORTER Unless otherwise specified, test(s) performed at: [facility], [address] [place], [place] [id number] ORGAN TUNER ELECTRONIC: Tawanna green M.D. For any questions, please call customer service at FREQUENCY:OTHER Resulting Agency Comment Specimen source: Serum Ernie Pompa MD LAB BLOOD ORDERABLES Performing Organization Address [facility] Phon e Number APS SPECTRA [facility] (ABNORMAL) Spectrae Chemistry (05/15/2019 10:08 AM ROOFING TILE SORTER) P athologist Signature BUN 29 (H) 6 - 19 APS SPECTRA mg/dL [facility] Specimen Anatomical Collection Method Collection Time Receive d Time (Source) Location / / Volume Laterality 05/15/2019 10:08 05/16/2019 AM ROOFING TILE SORTER 10:07 AM ROOFING TILE SORTER Narrative APS SPECTRA [facility] - 05/15/2019 10:08 AM ROOFING TILE SORTER Unless otherwise specified, test(s) performed at: [facility], [address] [place], [place] [id number] ORGAN TUNER ELECTRONIC: Tawanna green M.D. For any questions, please call customer service at FREQUENCY:OTHER Resulting Agency Comment Specimen source: Serum Ernie Pompa MD LAB BLOOD ORDERABLES Performing Organization Address City/[facility] Phon e Number APS SPECTRA [facility] (ABNORMAL) HEMATOLOGY (05/15/2019 10:08 AM ROOFING TILE SORTER) Analysis Performed At Patho logist Time Signature Hemoglobin 8.2 (L) 14.0 - APS SPECTRA 18.0 g/dL [facility] Hemoglobin x 3 24.6 (L) 42.0 - APS SPECTRA 54.0 % [facility] Specimen Anatomical Collection Method Collection Time Receive d Time (Source) Location / / Volume Laterality 05/15/2019 10:08 05/16/2019 AM ROOFING TILE SORTER 10:48 AM ROOFING TILE SORTER Narrative APS SPECTRA [facility] - 05/15/2019 10:08 AM ROOFING TILE SORTER Unless otherwise specified, test(s) performed at: [facility], [address] [place] [address] ORGAN TUNER ELECTRONIC: Tawanna green M.D. For any questions, please call customer service at FREQUENCY:OTHER Resulting Agency Comment Specimen source: Blood Ernie Pompa MD LAB BLOOD ORDERABLES Performing Organization Address City/[facility] Phon e Number APS SPECTRA [facility] Spectra [...]
--- OUTSIDE RECORDS SUMMARY | 2021-11-18 12:41 | XMS_ITS | Encounter Summary ---
:1945 Author Organization [facility] Address [address] [place] [address] Care Team Providers Name Role Phone Unavailable Primary Care Provider Unavailable Encounter Details Date Type Department Care Team Description 05/01/2019 Orders Only [facility] O f Ernie Guzmán MD [address] [place] [address] [place], [place] [phone] (Wo rk) Social History Tobacco Use [...] above test result was obtained using Siemens CitySourcedaur XP chemiluminescent method. Results obtaine d with different assay methods or kits cannot be used interchangeably. Specimen (Source) Anatomical Collection Method Collection Time Re ceived Time Location / / Volume Laterality 05/01/2019 05/02/2019 3:03 PM DIGITAL ADVERTISING SPECIALIST Resulting Agency Comment Specimen source: Serum Ernie [...] / Volume Laterality 05/01/2019 05/02/2019 3:03 PM DIGITAL ADVERTISING SPECIALIST Narrative APS SPECTRA [facility] - 05/03/2019 Unless otherwise specified, test(s) performed at: [facility], [address] [place], [place] [phone] ELECTRONEURODIAGNOSTIC TECHNOLOGIST: Tawanna green M.D. For any questions, please call customer service at FREQUENCY:MONTHLY Resulting Agency Comment Specimen source: Serum Ernie Pompa MD LAB BLOOD BANK TEST ORDERABL ES Performing Organization Address City/[facility] Phon e Number APS SPECTRA [facility] (ABNORMAL) Spectrae Chemistry (05/01/2019) P athologist Signature PTH 351 (H) 16 - 80 APS SPECTRA pg/mL [facility] Specimen (Source) Anatomical Collection Method Collection Time Re ceived Time Location / / Volume Laterality 05/01/2019 05/02/2019 8:20 PM DIGITAL ADVERTISING SPECIALIST Narrative APS SPECTRA [facility] - 05/03/2019 Unless otherwise specified, test(s) performed at: [facility], [address] [place], [place] [id number] ELECTRONEURODIAGNOSTIC TECHNOLOGIST: Tawanna green M.D. For any questions, please call customer service at FREQUENCY:MONTHLY Resulting Agency Comment Specimen source: Plasma Ernie Pompa MD LAB BLOOD ORDERABLES Performing Organization Address City/State/[facility] Phon e Number APS SPECTRA [...] / Volume Laterality 05/01/2019 05/02/2019 8:20 PM DIGITAL ADVERTISING SPECIALIST Narrative APS SPECTRA [facility] - 05/03/2019 Unless otherwise specified, test(s) performed at: [facility], [address] [place] [address] ELECTRONEURODIAGNOSTIC TECHNOLOGIST: Tawanna green M.D. For any questions, please call customer service at FREQUENCY:MONTHLY Resulting Agency Comment Specimen source: Blood Ernie Pompa MD LAB BLOOD ORDERABLES Performing Organization Address City/[facility] Phon e Number APS SPECTRA [facility] TRACE ELEMENTS (05/01/2019) P athologist Signature Aluminum <5 0 - 10 APS SPECTRA mcg/L [facility] Comment: This test was developed and its performa nce characteristics determined by [facility]. It has not been cleared or approved by the FDA. The laboratory is regulated under CLIA a s qualified to perform high complexity testing. This test is used fo r clinical purposes. It should not be regarded as investigational or fo r research. Specimen (Source) Anatomical Collection Method Collection Time Re ceived Time Location / / Volume Laterality 05/01/2019 05/02/2019 4:05 PM DIGITAL ADVERTISING SPECIALIST Narrative APS SPECTRA [facility] - 05/02/2019 Unless otherwise specified, test(s) performed at: [facility], [address] [place] [address] ELECTRONEURODIAGNOSTIC TECHNOLOGIST: Tawanna green M.D. For any questions, please call customer service at FREQUENCY:MONTHLY Resulting Agency Comment Specimen source: Serum Ernie Pompa MD LAB BLOOD ORDERABLES Performing Organization Address City/[facility] Phon e Number APS SPECTRA [facility] (ABNORMAL) HD KINETICS (05/01/2019) P athologist Signature % Urea 96 (H) 65 - 80 % APS SPECTRA Reduction [facility] Specimen (Source) Anatomical Collection Method Collection Time Re ceived Time Location / / Volume Laterality 05/01/2019 05/02/2019 3:04 PM DIGITAL ADVERTISING SPECIALIST Narrative APS SPECTRA [facility] - 05/02/2019 Unless otherwise specified, test(s) performed at: [facility], [address] [place] [id number] ELECTRONEURODIAGNOSTIC TECHNOLOGIST: Tawanna green M.D. For any questions, please call customer service at FREQUENCY:MONTHLY Resulting Agency Comment Specimen source: Serum Ernie Pompa MD LAB BLOOD ORDERABLES Performing Organization Address City/State/ZIP Code Phon e Number APS SPECTRA [facility] (ABNORMAL) Spectrae Chemistry (05/01/2019) [facility] gist Method Time Signature BUN 68 (H) [...] / Volume Laterality 05/01/2019 05/02/2019 3:03 PM DIGITAL ADVERTISING SPECIALIST Narrative APS SPECTRA [facility] - 05/03/2019 Unless otherwise specified, test(s) performed at: [facility], [address] [place] [address] ELECTRONEURODIAGNOSTIC TECHNOLOGIST: Tawanna green M.D. For any questions, please [...] Volume Laterality 05/01/2019 05/02/2019 12:5 1 PM DIGITAL ADVERTISING SPECIALIST Narrative APS SPECTRA [facility] - 05/02/2019 Unless otherwise specified, test(s) performed at: [facility], [address] [place] [address] ELECTRONEURODIAGNOSTIC TECHNOLOGIST: Tawanna green M.D. For any questions, please call customer service at FREQUENCY:MONTHLY Resulting Agency Comment Specimen source: Plasma Ernie Pompa MD LAB BLOOD ORDERABLES Performing Organization Address City/State/ZIP [facility] Phon e Number APS SPECTRA [facility] documented in this encounter Visit Diagnoses Not on filedocumented in this encounter
--- OUTSIDE RECORDS SUMMARY | 2021-11-18 12:41 | XMS_ITS | Encounter Summary ---
:1945 Author Organization [facility] Address [address] [place] [address] Care Team Providers Name Role Phone Unavailable Primary Care Provider Unavailable Encounter Details Date Type Department Care Team Description 08/07/2019 Orders Only [facility] O f Ernie Guzmán MD [address] [place] [address] [place], [place] [phone] (Wo rk) Social History Tobacco Use [...] 08/08/2019 Unless otherwise specified, test(s) performed at: [facility], [address] [place] [address] FOURDRINIER MACHINE TENDER: Alec Payan M.D. For any questions, please call customer service at FREQUENCY:OTHER Resulting Agency Comment Specimen source: Blood Ernie Pompa MD LAB BLOOD ORDERABLES Performing Organization Address City/State/ZIP Code Phon e Number APS SPECTRA [facility] documented in this encounter Visit Diagnoses Not on filedocumented in this encounter
--- OUTSIDE RECORDS SUMMARY | 2021-11-18 12:41 | XMS_ITS | Encounter Summary ---
:1945 Author Organization [facility] Address [address] [place] [address] Care Team Providers Name Role Phone Unavailable Primary Care Provider Unavailable Encounter Details Date Type Department Care Team Description 08/07/2019 Treatment [facility] f Ernie Guzmán MD [address] [place] [address] [place], [place] [phone] (Wo rk) Social History Tobacco Use Types Packs/Day Years Used Date Smoking Tobacco: Unknown Comments: Smoking History Info:Patient n ot screened Sex Assigned at Date Recorded Not on file documented as of this encounter Miscellaneous Notes Dialysis Note - Ernie Pompa MD - 08/07/2019 5:40 PM CDT Date: August 07, 2019 Patient Name: Shaun Ocampo : 1945 Chart #: [id number] Sex: M This patient was personally seen for a complete visit as part of routine monthly dialysis care. A review of the dialysis treatment, blood pressure, estimated dry weight and recent lab values was made. These were discussed with the patient and staff as necessary. BUFFER INFLATED PAD: Ernie Pompa MD LOCATION: [phone] SCHEDULE: M-W-F 2nd Shift EDW: kg. DIALYZER: [...] adequacy Vascular Access Assessment Type of access: [id number]/2019 Surgeon - Lary GARDNER Access working well [...] at goal. Intact PTH is below goal. Shake Sawyer will adjust binders and vitamin D per [...]
--- OUTSIDE RECORDS SUMMARY | 2021-11-18 12:41 | XMS_ITS | Encounter Summary ---
:1945 Author Organization [facility] Address [address] [place] [address] Care Team Providers Name Role Phone Unavailable Primary Care Provider Unavailable Encounter Details Date Type Department Care Team Description 05/29/2019 Orders Only [facility] O f Ernie Guzmán MD [address] [place] [address] [place], [place] [phone] (Wo rk) Social History Tobacco Use [...] Provider LAB BLOOD ORDERABLES Performing Organization Address City/[facility]/ZIP [facility] Phon e Number KAMERON (ABNORMAL) HD KINETICS (05/29/2019) P athologist Signature % Urea 64 (L) 65 - 80 % APS SPECTRA Reduction [facility] Specimen (Source) Anatomical Collection Method Collection Time Re ceived Time Location / / Volume Laterality 05/29/2019 05/30/2019 6:23 PM CDT Narrative APS SPECTRA [facility] - 05/30/2019 Unless otherwise specified, test(s) performed at: [facility], [address] [place] [address] FUR VAULT ATTENDANT: Tawanna green M.D. For any questions, please call customer service at FREQUENCY:OTHER Resulting Agency Comment Specimen source: Serum Ernie Pompa MD LAB BLOOD ORDERABLES Performing Organization Address City/[facility] Phon e Number APS SPECTRA [facility] [...] 05/30/2019 Unless otherwise specified, test(s) performed at: [facility], [address] [place] [address] FUR VAULT ATTENDANT: Tawanna green M.D. For any questions, please call customer service at FREQUENCY:OTHER Resulting Agency Comment Specimen source: Serum Ernie Pompa MD LAB BLOOD ORDERABLES Performing Organization Address City/[facility]/ZIP [facility] Phon e Number APS SPECTRA [facility] POST CHEMISTRY (05/29/2019) P athologist Signature BUN Post 10 6 - 19 APS SPECTRA Dialysis mg/dL [facility] Specimen (Source) Anatomical Collection Method Collection Time Re ceived Time Location / / Volume Laterality 05/29/2019 05/30/2019 9:58 AM CDT Narrative APS SPECTRA [facility] - 05/30/2019 Unless otherwise specified, test(s) performed at: [facility], [address] [place], [place] [id number] FUR VAULT ATTENDANT: Tawanna green M.D. For any questions, please call customer service at FREQUENCY:OTHER Resulting Agency Comment Specimen source: Plasma Ernie Pompa MD LAB BLOOD ORDERABLES Performing Organization Address City/[facility] Phon e Number APS SPECTRA [facility] [...] 05/30/2019 Unless otherwise specified, test(s) performed at: [facility], [address] [place], [place] [id number] FUR VAULT ATTENDANT: Tawanna green M.D. For any questions, please call customer service at FREQUENCY:OTHER Resulting Agency Comment Specimen source: Blood Ernie Pompa MD LAB BLOOD ORDERABLES Performing Organization Address City/[facility] Phon e Number APS SPECTRA [facility] documented in this encounter Visit Diagnoses Not on filedocumented in this encounter
--- OUTSIDE RECORDS SUMMARY | 2021-11-18 12:41 | XMS_ITS | Encounter Summary ---
:1945 Author Organization [facility] Address [address] [place] [address] Care Team Providers Name Role Phone Unavailable Primary Care Provider Unavailable Encounter Details Date Type Department Care Team Description 08/28/2019 Treatment [facility] O Ernie Gómez MD [address] [place] [address] [place], [place] [phone] [phone] (Wo rk) Social History Tobacco Use Types Packs/Day Years Used Date Smoking Tobacco: Unknown Comments: Smoking History Info:Patient n ot screened Sex Assigned at Date Recorded Not on file documented as of this encounter Miscellaneous Notes Dialysis Note - Ernie Pompa MD - 08/28/2019 12:51 PM CDT Date: Aug 28, 2019 Patient Name: Shaun Ocampo : 1945 Chart #: [id number] Sex: M This patient was personally seen [...] PM ) BP (sit): 147/58 AP(-) / ICING COATER: 198/168 Pulse: 65 Chairside data as of [...] IVP Every Treatment During Dialysis 08/26/2019 09/16/2019 BALLING HEAD TENDER: Ernie Pompa MD LOCATION: [phone] SCHEDULE: -- 2nd Shift EDW: kg. DIALYZER: [...] prescription. Vascular Access Assessment Type of access: [id number]/2019 Surgeon - Lary GARDNER Access working well [...] at goal. Intact PTH is below goal. Extrusion Press Operator will adjust binders and vitamin [...]
--- OUTSIDE RECORDS SUMMARY | 2021-11-18 12:41 | XMS_ITS | Encounter Summary ---
:1945 Author Organization [facility] Address [address] [place] [address] Care Team Providers Name Role Phone Unavailable Primary Care Provider Unavailable Encounter Details Date Type Department Care Team Description 07/29/2019 Orders Only [facility] O f Ernie Guzmán MD [address] [place] [address] [place], [place] [phone] (Wo rk) Social History Tobacco Use [...] 07/30/2019 Unless otherwise specified, test(s) performed at: [facility], [address] [place] [address] AUTOCAD OPERATOR: Alec Payan M.D. For any questions, please call customer service at FREQUENCY:OTHER Resulting Agency Comment Specimen source: Serum Ernie Pompa MD LAB BLOOD ORDERABLES Performing Organization Address City/State/ZIP Code Phon e Number APS SPECTRA [facility] documented in this encounter Visit Diagnoses Not on filedocumented in this encounter
--- OUTSIDE RECORDS SUMMARY | 2021-11-18 12:41 | XMS_ITS | Encounter Summary ---
:1945 Author Organization [facility] Address [address] [place] [address] Care Team Providers Name Role Phone Unavailable Primary Care Provider Unavailable Encounter Details Date Type Department Care Team Description 07/10/2019 Orders Only [facility] O f Ernie Guzmán MD [address] [place] [address] [place], [place] [phone] (Wo rk) Social History Tobacco Use [...] 07/11/2019 Unless otherwise specified, test(s) performed at: [facility], [address] [place] [address] SECURITY DISPATCHER: Alec Payan M.D. For any questions, please call customer service at FREQUENCY:OTHER Resulting Agency Comment Specimen source: Blood Ernie Pompa MD LAB BLOOD ORDERABLES Performing Organization Address City/State/ZIP Code Phon e Number [facility] documented in this encounter Visit Diagnoses Not on filedocumented in this encounter
--- OUTSIDE RECORDS SUMMARY | 2021-11-18 12:41 | XMS_ITS | Encounter Summary ---
:1945 Author Organization [facility] Address [address] [place] [address] Care Team Providers Name Role Phone Unavailable Primary Care Provider Unavailable Encounter Details Date Type Department Care Team Description 05/15/2019 Treatment [facility] O Ernie Gómez MD [address] [place] [address] [place], [place] [phone] (Wo rk) Social History Tobacco Use Types Packs/Day Years Used Date Smoking Tobacco: Unknown Comments: Smoking History Info:Patient n ot screened Sex Assigned at Date Recorded Not on file documented as of this encounter Miscellaneous Notes Dialysis Note - Ernie Pompa MD - 05/15/2019 12:58 PM CST Date: May 15, 2019 Patient Name: Shaun Ocampo : 1945 Chart #: [id number] Sex: M This patient was personally seen [...] AM ) BP (sit): 148/53 AP(-) / REGISTRAR MUSEUM: 216/194 Pulse: 62 Chairside data as of [...] 4:0 4:0 Actual Treatment Time 04:01 04:03 CLAIMS COORDINATOR: Ernie Pompa MD LOCATION: [phone] SCHEDULE: -- 2nd Shift EDW: kg. DIALYZER: [...] tablet Take 1 tablet once a day [place] Saline (sodium chloride) 0.65% drops calcitriol 0.25 [...] away) Vascular Access Assessment Type of access: Dyflmfv86/2019 Lary GARDNER Anemia Assessment HEMOGLOBIN (G/DL) IN [...] at goal. Intact PTH is at goal. Tankroom Worker will adjust binders and vitamin D [...] Name: Shaun Ocampo : 1945 Chart #: [id number] Sex: M Patient Type: ESRD Modality: Hemodialysis Publisher Assistant: Ernie Pompa MD Location: [phone] Schedule: -W- 2nd Shift Initial Access Date [...]
--- OUTSIDE RECORDS SUMMARY | 2021-11-18 12:41 | XMS_ITS | Encounter Summary ---
:1945 Author Organization [facility] Address [address] [place] [address] Care Team Providers Name Role Phone Unavailable Primary Care Provider Unavailable Encounter Details Date Type Department Care Team Description 06/26/2019 [facility] O f Ernie Guzmán MD [address] [place] [address] [place], [place] [phone] (Wo rk) Social History Tobacco Use [...] 06/27/2019 Unless otherwise specified, test(s) performed at: [facility], [address] [place] [address] EYE CLINIC MANAGER: Alec Payan M.D. For any questions, please call customer service at FREQUENCY:OTHER Resulting Agency Comment Specimen source: Blood Ernie Pompa MD LAB BLOOD ORDERABLES Performing Organization Address City/State/ZIP Code Phon e Number [facility] documented in this encounter Visit Diagnoses Not on filedocumented in this encounter
--- OUTSIDE RECORDS SUMMARY | 2021-11-18 12:41 | XMS_ITS | Encounter Summary ---
:1945 Author Organization [facility] Address [address] [place] [address] Care Team Providers Name Role Phone Unavailable Primary Care Provider Unavailable Encounter Details Date Type Department Care Team Description 07/03/2019 Orders Only [facility] O f Ernie Guzmán MD [address] [place] [address] [place], [place] [phone] (Wo rk) Social History Tobacco Use [...] Provider LAB BLOOD ORDERABLES Performing Organization Address [facility] Phon e Number KAMERON IMMUNO CHEMISTRY (07/03/2019) P athologist Signature Hep B Surface Negative Negative [facility]PS SPECT[facility] Ag [facility] Specimen (Source) Anatomical Collection Method Collection Time Re ceived Time Location / / Volume Laterality 07/03/2019 07/04/2019 8:19 PM CDT Narrative [facility] - 07/05/2019 Unless otherwise specified, test(s) performed at: [facility], [address] [place] [address] SHEETFED PRESS OPERATOR: Alec Payan M.D. For any questions, please call customer service at FREQUENCY:OTHER Resulting Agency Comment Specimen source: Serum Ernie Pompa MD LAB BLOOD ORDERABLES Performing Organization Address [facility] Phon e Number [facility] SPECT[facility] HD KINETICS (07/03/2019) P athologist Signature % Urea 71 65 - 80 % APS SPECT[facility] Reduction [facility] Specimen (Source) Anatomical Collection Method Collection Time Re ceived Time Location / / Volume Laterality 07/03/2019 07/04/2019 8:19 PM CDT Narrative [facility]PS [facility]PECTRA [facility] - 07/05/2019 Unless otherwise specified, test(s) performed at: [facility], [address] [place] [address] SHEETFED PRESS OPERATOR: Alec Payan M.D. For any questions, please call customer service at FREQUENCY:OTHER Resulting Agency Comment Specimen source: Serum Ernie Pompa MD LAB BLOOD ORDERABLES Performing Organization Address City/[facility] Phon e Number APS SPECTRA [facility] (ABNORMAL) Spectrae Chemistry (07/03/2019) P athologist Signature BUN 35 (H) 6 - 19 APS SPECTRA mg/dL [facility] Specimen (Source) Anatomical Collection Method Collection Time Re ceived Time Location / / Volume Laterality 07/03/2019 07/04/2019 8:19 PM CDT Narrative [facility]PS SPECTRA [facility] - 07/05/2019 Unless otherwise specified, test(s) performed at: [facility], [address] [place] [address] SHEETFED PRESS OPERATOR: Alec Payan M.D. For any questions, please call customer service at FREQUENCY:OTHER Resulting Agency Comment Specimen source: Serum Ernie Pompa MD LAB BLOOD ORDERABLES Performing Organization Address City/[facility] Phon e Number [facility]PS SPECTRA [facility] POST CHEMISTRY (07/03/2019) P athologist Signature BUN Post 10 6 - 19 APS SPECTRA Dialysis mg/dL [facility] Specimen (Source) Anatomical Collection Method Collection Time Re ceived Time Location / / Volume Laterality 07/03/2019 07/04/2019 5:30 PM CDT Narrative [facility]PS SPECTRA [facility] - 07/04/2019 Unless otherwise specified, test(s) performed at: [facility], [address] [place] [address] SHEETFED PRESS OPERATOR: Alec Payan M.D. For any questions, please call customer service at FREQUENCY:OTHER Resulting Agency Comment Specimen source: Plasma Ernie Pompa MD LAB BLOOD ORDERABLES Performing Organization Address [facility] Phon e Number APS SPECTRA [...] 07/04/2019 Unless otherwise specified, test(s) performed at: [facility], [address] [place] [address] SHEETFED PRESS OPERATOR: Alec Payan M.D. For any questions, please call customer service at FREQUENCY:OTHER Resulting Agency Comment Specimen source: Blood Ernie Pompa MD LAB BLOOD ORDERABLES Performing Organization Address City/[facility] Phon e Number [facility]PS SPECTRA [facility] documented in this encounter Visit Diagnoses Not on filedocumented in this encounter
--- OUTSIDE RECORDS SUMMARY | 2021-11-18 12:41 | XMS_ITS | Encounter Summary ---
:1945 Author Organization [facility] Address [address] [place] [address] Care Team Providers Name Role Phone Unavailable Primary Care Provider Unavailable Encounter Details Date Type Department Care Team Description 05/22/2019 Treatment [facility] Ernie Gómez MD [address] [place] [address] [place], [place] [phone] [phone] (Wo rk) Social History Tobacco Use Types Packs/Day Years Used Date Smoking Tobacco: Unknown Comments: Smoking History Info:Patient n ot screened Sex Assigned at Date Recorded Not on file documented as of this encounter Miscellaneous Notes Dialysis Note - Ernie Pompa MD - 05/22/2019 12:28 PM CST Date: May 22, 2019 Patient Name: Shaun Ocampo : 1945 Chart #: [id number] Sex: M This patient was personally seen [...] AM ) BP (sit): n/a AP(-) / CRYPTOGRAPHY TEACHER: 231/165 Pulse: n/a Chairside data as of [...] 4:0 Actual Treatment Time 04:04 04:01 04:04 HAMPER MAKER MACHINE: Ernie Pompa MD LOCATION: [place] [phone] SCHEDULE: -- 2nd Shift EDW: kg. DIALYZER: [...] tablet Take 1 tablet once a day [place] Saline (sodium chloride) 0.65% drops calcitriol 0.25 [...] 800 Vascular Access Assessment Type of access: [id number]/2019 Surgeon - Lary GARDNER Advancing needles to [...] at goal. Intact PTH is at goal. World Language Teacher will adjust binders and vitamin D [...]
--- OUTSIDE RECORDS SUMMARY | 2021-11-18 12:41 | XMS_ITS | Encounter Summary ---
:1945 Author Organization [facility] Address [address] [place] [address] Care Team Providers Name Role Phone Unavailable Primary Care Provider Unavailable Encounter Details Date Type Department Care Team Description 09/04/2019 Orders Only [facility] O f Ernie Guzmán MD [address] [place] [address] [place], [place] [phone] (Wo rk) Social History Tobacco Use [...] 09/05/2019 Unless otherwise specified, test(s) performed at: [facility], [address] [place] [address] ACID CORRECTION HAND: Alec Payan M.D. For any questions, please call customer service at FREQUENCY:OTHER Resulting Agency Comment Specimen source: Blood Ernie Pompa MD LAB BLOOD ORDERABLES Performing Organization Address City/State/ZIP Code Phon e Number [facility]PS SPECTRA [facility] documented in this encounter Visit Diagnoses Not on filedocumented in this encounter
--- OUTSIDE RECORDS SUMMARY | 2021-11-18 12:41 | XMS_ITS | Encounter Summary ---
:1945 Author Organization [facility] Address [address] [place] [address] Care Team Providers Name Role Phone Unavailable Primary Care Provider Unavailable Encounter Details Date Type Department Care Team Description 07/31/2019 Orders [facility] O f Ernie Guzmán MD [address] [place] [address] [place], [place] [phone] (Wo rk) Social History Tobacco Use [...] 08/01/2019 Unless otherwise specified, test(s) performed at: [facility], [address] [place] [address] IVORY CARVER: Alec Payan M.D. For any questions, please call customer service at FREQUENCY:OTHER Resulting Agency Comment Specimen source: Blood Ernie Pompa MD LAB BLOOD ORDERABLES Performing Organization Address City/State/ZIP Code Phon e Number [facility]PS SPECTRA [facility] documented in this encounter Visit Diagnoses Not on filedocumented in this encounter
--- OUTSIDE RECORDS SUMMARY | 2021-11-18 12:41 | XMS_ITS | Encounter Summary ---
:1945 Author Organization [facility] Address [address] [place] [address] Care Team Providers Name Role Phone Unavailable Primary Care Provider Unavailable Encounter Details Date Type Department Care Team Description 09/11/2019 Treatment [facility] O Ernie Gómez MD [address] [place] [address] [place], [place] [phone] (Wo rk) Social History Tobacco Use Types Packs/Day Years Used Date Smoking Tobacco: Unknown Comments: Smoking History Info:Patient n ot screened Sex Assigned at Date Recorded Not on file documented as of this encounter Miscellaneous Notes Dialysis Note - Ernie Pompa MD - 09/11/2019 12:23 PM CDT Date: Sep 11, 2019 Patient Name: Shaun Ocampo : 1945 Chart #: [id number] Sex: M This patient was personally seen [...] PM ) BP (sit): 149/59 AP(-) / FELT CHECKER: 209/174 Pulse: 66 Chairside data as of [...] 08/23/2019 08/02/2019 Access Flow > 2000 1510 MOTION PICTURE PROJECTIONIST: Ernie Pompa MD LOCATION: [place] [phone] SCHEDULE: -- 2nd Shift ACCESS: EDW: kg. [...] (05/01/19) Vascular Access Assessment: Type of access: [id number]/2019 Surgeon - Lary GARDNER Access working well [...]
--- OUTSIDE RECORDS SUMMARY | 2021-11-18 12:41 | XMS_ITS | Encounter Summary ---
:1945 Author Organization [facility] Address [address] [place] [address] Care Team Providers Name Role Phone Unavailable Primary Care Provider Unavailable Encounter Details Date Type Department Care Team Description 05/22/2019 Orders Only [facility] O f Ernie Guzmán MD [address] [place] [address] [place], [place] [phone] (Wo rk) Social History Tobacco Use [...] Volume Laterality 05/22/2019 05/23/2019 10:5 1 PM FLIGHT NURSE Resulting Agency Comment Specimen source: Plasma Ernie Pompa MD LAB BLOOD ORDERABLES Performing Organization Address City/State/ZIP Code Phon e Number [facility]PS SPECTRA [facility] POST CHEMISTRY (05/22/2019) athologist Signature BUN Post 13 6 - 19 APS SPECTRA Dialysis mg/dL [facility] Specimen (Source) Anatomical Collection Method Collection Time Re ceived Time Location / / Volume Laterality 05/22/2019 05/23/2019 10:5 1 PM FLIGHT NURSE Narrative [facility]PS SPECTRA [facility] - 05/24/2019 Unless otherwise specified, test(s) performed at: [facility], [address] [place] [address] DIETARY WORKER: Tawanna green M.D. For any questions, please call customer service at FREQUENCY:MONTHLY Resulting Agency Comment Specimen source: Plasma Ernie Pompa MD LAB BLOOD ORDERABLES Performing Organization Address City/[facility]/ZIP Code Phon e Number APS SPECTRA [facility] (ABNORMAL) Spectrae Chemistry (05/22/2019) [facility] Method Time Signature BUN 30 (H) [...] Volume Laterality 05/22/2019 05/23/2019 11:2 0 AM FLIGHT NURSE Narrative APS SPECTRA [facility] - 05/23/2019 Unless otherwise specified, test(s) performed at: [facility], [address] [place] [address] DIETARY WORKER: Tawanna green M.D. For any questions, please [...] Volume Laterality 05/22/2019 05/23/2019 12:4 6 PM FLIGHT NURSE Narrative APS SPECTRA [facility] - 05/23/2019 Unless otherwise specified, test(s) performed at: [facility], [address] [place] [address] DIETARY WORKER: Tawanna green M.D. For any questions, please call customer service at FREQUENCY:MONTHLY Resulting Agency Comment Specimen source: Blood Ernie Pompa MD LAB BLOOD ORDERABLES Performing Organization Address City/State/ZIP Code Phon e Number [facility]PS SPECTRA [facility] documented in this encounter Visit Diagnoses Not on filedocumented in this encounter
--- OUTSIDE RECORDS SUMMARY | 2021-11-18 12:41 | XMS_ITS | Encounter Summary ---
:1945 Author Organization [facility] Address [address] [place] [address] Care Team Providers Name Role Phone Unavailable Primary Care Provider Unavailable Encounter Details Date Type Department Care Team Description 08/14/2019 Orders Only [facility] O f Ernie Guzmán MD [address] [place] [address] [place], [place] [phone] (Wo rk) Social History Tobacco Use [...] 08/16/2019 Unless otherwise specified, test(s) performed at: [facility], [address] [place] [address] DIRECTOR OF STRATEGIC SALES: Alec Payan M.D. For any questions, please call customer service at FREQUENCY:OTHER Resulting Agency Comment Specimen source: Blood Ernie Pompa MD LAB BLOOD ORDERABLES Performing Organization Address City/State/ZIP Code Phon e Number APS SPECTRA [facility] documented in this encounter Visit Diagnoses Not on filedocumented in this encounter
--- OUTSIDE RECORDS SUMMARY | 2021-11-18 12:41 | XMS_ITS | Encounter Summary ---
:1945 Author Organization [facility] Address [address] [place] [address] Care Team Providers Name Role Phone Unavailable Primary Care Provider Unavailable Encounter Details Date Type Department Care Team Description 08/28/2019 Orders [facility] O f Ernie Guzmán MD [address] [place] [address] [place], [place] [phone] (Wo rk) Social History Tobacco Use [...] 08/29/2019 Unless otherwise specified, test(s) performed at: [facility], [address] [place] [address] STEAM TABLE ASSOCIATE: Alec Payan M.D. For any questions, please call customer service at FREQUENCY:OTHER Resulting Agency Comment Specimen source: Blood Ernie Pompa MD LAB BLOOD ORDERABLES Performing Organization Address City/State/ZIP Code Phon e Number [facility]PS SPECTRA [facility] documented in this encounter Visit Diagnoses Not on filedocumented in this encounter
--- OUTSIDE RECORDS SUMMARY | 2021-11-18 12:41 | XMS_ITS | Encounter Summary ---
:1945 Author Organization [facility] Address [address] [place] [address] Care Team Providers Name Role Phone Unavailable Primary Care Provider Unavailable Encounter Details Date Type Department Care Team Description 08/21/2019 Orders Only [facility] O f Ernie Guzmán MD [address] [place] [address] [place], [place] [phone] (Wo rk) Social History Tobacco Use [...] 08/23/2019 Unless otherwise specified, test(s) performed at: [facility], [address] [place], [place] [id number] JAVA LEAD ENGINEER: Alec Payan M.D. For any questions, [...] 08/23/2019 Unless otherwise specified, test(s) performed at: [facility], [address] [place] [address] JAVA LEAD ENGINEER: Alec Payan M.D. For any questions, please call customer service at FREQUENCY:MONTHLY Resulting Agency Comment Specimen source: Plasma Ernie Pompa MD LAB BLOOD ORDERABLES Performing Organization Address City/State/ZIP Code Phon e Number [facility]PS SPECTRA [facility] (ABNORMAL) Spectrae Chemistry (08/21/2019) [facility] Method Time Signature BUN 40 (H) 6 [...] 08/23/2019 Unless otherwise specified, test(s) performed at: [facility], [address] [place] [address] JAVA LEAD ENGINEER: Alec Payan M.D. For any questions, [...] 08/22/2019 Unless otherwise specified, test(s) performed at: [facility], [address] [place] [address] JAVA LEAD ENGINEER: Alec Payan M.D. For any questions, please call customer service at FREQUENCY:MONTHLY Resulting Agency Comment Specimen source: Blood Ernie Pompa MD LAB BLOOD ORDERABLES Performing Organization Address City/State/ZIP Code Phon e Number [facility]PS SPECTRA [facility] documented in this encounter Visit Diagnoses Not on filedocumented in this encounter
== END 2021-11-18 12:32 | disposition home or self-care (01) ==
LOC: WOUND 12:31
PROVIDERS: PCP Family Medicine; Visit Provider Nurse Practitioner Family
DX: E11.622 Type 2 diabetes mellitus with other skin ulcer (principal); L97.312 Non-pressure chronic ulcer of right ankle with fat layer exposed
CPT/HCPCS: 11042

== ENCOUNTER 2021-11-25 10:46 | Outpatient (CLI) | payer MEDICARE, SELFPAY ==
--- OUTSIDE RECORDS SUMMARY | 2021-11-25 10:52 | XMS_ITS | Encounter Summary ---
:1945 Author Organization [facility] Address [address] [place] [address] Care Team Providers Name Role Phone Liban Leos Primary Care Provider Ernie Pompa MD Unavailable Reason for Visit Reason Comments Hypotension Auth/Cert Specialty Diagnoses / Procedures Referred By Contact Refer red To Contact Med Surg Diagnoses UGI bleed UGI bleed 5 Medical Surgical [address] [place], [place] [address] Phone: Fax: Referral ID Status Reason Start Date Expiration Date Visits Requ ested Visits Authorized [id number] 1 1 Encounter Details Date Type Department Care Team Description 10/08/2021 - Hospital Encounter [facility] Florentino Ragsdale MD [facility] [address] [place] [address] UGI bleed 10/11/2021 [place] [address] Medical Fadi Viveros, DO [address] [place] [address] Surgical Dlalin Simons MD [facility] [address] [place] [address] [address] Rh[address] Burt MD [facility] [address] [place], [place] [id number] [place] [address] Social History Tobacco Use Types [...] 10/11/2021 10:42 AM CDT Hospitalist Discharge Summary [facility] Jonatan Mejia Date of : [...] daily fluticasone (FLONASE) 50 MCG/ACT nasal spray [place] 1 spray in nostril daily fluticasone-salmeterol (ADVAIR [...] ulcer and??morbid obesity??who??presents to the ED from [facility] due to concerns of hematemesis and melanotic stool. He had just finished HD (took 1.2L) and presented to [facility] due to concerns of dizziness and hematemesis. ?? Work up at [facility] showed hgb of 7.5 and soft pressures in the 100's. CT abd pelvis showed normal distal esophagus, stomach and normal liver. No symptoms of obstruction or mass. There were moderate ascites in the dependent abdomen. He received NS bolus (500cc) and 1 unit(s) PRBC and transferred to [facility] ED. 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 He does also have a history of [...] was: 35 Minutes Dallin Farah DO MPH [facility] Hospitalist Clark Lentz [facility] [place] [address] 10/11/2021 documented in this encounter Medications at Time of Discharge Medication Sig Dispensed Refills Start Date End Date allopurinol (ZYLOPRIM) Take 100 mg by mouth 0 100 MG tablet daily atorvastatin (LIPITOR) Take 20 mg by mouth 0 11/19 20 MG tablet daily fluticasone (FLONASE) 50 [place] 1 spray in 0 12/15 MCG/ACT nasal [...] walker and gait belt, denies pain, GREY, [id number] on RA. VSS, continues to be anuric. [...] as tolerate. No heparin. Plan discussed with marine biologist and patient at the bedside. Interval History: [...] medications, labs and imaging. Frederick Alcaraz MD [facility] - Nephrology Office phone :[phone] Pager: [phone] Jovita Blackmon RN - 10/11/2021 7:05 AM [...] Farah DO - 10/10/2021 12:[address] [facility] Hospitalist Progress Note Name: Jonatan [...] morbid obesity??who presents to the ED from [facility] due to concerns of hematemesis and melanotic stool. He had just finished HD (took 1.2L) and presented to [facility] due to concerns of dizziness and hematemesis. ?? Work up at [facility] showed hgb of 7.5 and soft pressures in the 100's. CT abd pelvis showed normal distal esophagus, stomach and normal liver. No symptoms of obstruction or mass. There were moderate ascites in the dependent abdomen. He received NS bolus (500cc) and 1 unit(s) PRBC and transferred to [facility] ED. Work up in our ED reveals [...] past 24 hour(s)). Dallin Farah DO MPH [facility] Hospitalist Clark Lentz [facility] [place] [address] 10/10/2021 Terry Wolfe MD - 10/10/2021 9:14 [...] mcg/hr (10/09/21 1126) Current active medications and TRAFFIC OR SYSTEM DISPATCHER medications reviewed, see medication list for details. [...] results for input(s): MAG in the last 84153 hours. No results for input(s): PHOS in the last 15039 hours. Recent Labs Lab Test 10/10/21 0722 [...] Farah DO - 10/09/2021 10:[address] [facility] Hospitalist Progress Note Name: Jonatan [...] morbid obesity??who presents to the ED from [facility] due to concerns of hematemesis and melanotic stool. He had just finished HD (took 1.2L) and presented to [facility] due to concerns of dizziness and hematemesis. ?? Work up at [facility] showed hgb of 7.5 and soft pressures in the 100's. CT abd pelvis showed normal distal esophagus, stomach and normal liver. No symptoms of obstruction or mass. There were moderate ascites in the dependent abdomen. He received NS bolus (500cc) and 1 unit(s) PRBC and transferred to [facility] ED. Work up in our ED reveals [...] past 24 hour(s)). Dallin Farah DO MPH [facility] Hospitalist Clark Lentz [facility] [place] [address] 10/09/2021 documented in this encounter H&P Notes Layne Rossi PA-C - 10/08/2021 9:27 PM CDT [facility] Admission History and Physical Examination NAME: Jonatan [...] morbid obesity??who presents to the ED from [facility] due to concerns of hematemesis and melanotic stool. He had just finished HD (took 1.2L) and presented to [facility] due to concerns of dizziness and hematemesis. Work up at [facility] showed hgb of 7.5 and soft bps in the 100's. CT abd pelvis showed normal distal esophagus, stomach and normal liver. No sxs of obstruction or mass. There were moderate ascites in the dependent abd. He received NS bolus (500cc) and 1u PRBC and transferred to [facility] ED. Work up in our ED reveals [...] morbid obesity??who presents to the ED from [facility] due to concerns of hematemesis and melanotic stool. He had just finished HD (took 1.2L) and presented to [facility] due to concerns of dizziness and hematemesis. Work up at [facility] showed hgb of 7.5 and soft bps in the 100's. CT abd pelvis showed normal distal esophagus, stomach and normal liver. No sxs of obstruction or mass. There were moderate ascites in the dependent abd. He received NS bolus (500cc) and 1u PRBC and transferred to [facility] ED. Work up in our ED reveals [...] 50 MCG/ACT nasal spray Yes Yes Sig: [place] 1 spray in nostril daily fluticasone-salmeterol (ADVAIR [...] -- 16 AST -- 15 Layne MARTIN-C [facility] Medicine October 08, 2021 Securely message with the [employer] Credito Console (learn more here) Text page via [employer] Paging/Directory Associated attestation - Fadi Viveros DO [...] 11:33 AM CDTAssociated Order(s): GASTROENTEROLOGY IP CONSULT [facility] Gastroenterology Consultation Joce Zamudio MD Patient Name: [...] He had an EGD June 28 at [facility]. Preoperative indication was Brannon's surveillance. 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 Biopsies were negative for Brannon's but did show esophagitis. Stomach showed diffuse gastritis with old blood consistent with erosive gastritis. Moderate duodenitis was noted. This was confirmed on biopsy and suspected be due to nonsteroidals likely aspirin. He reports an EGD in the remote past at [facility] that showed ulcers. He has ascites on [...] Medication Sig Last Dose Taking? Auth Provider Lead Fire Protection Engineer End Date allopurinol (ZYLOPRIM) 100 MG tablet [...] Yes fluticasone (FLONASE) 50 MCG/ACT nasal spray [place] 1 spray in nostril daily 10/07/2021 at [...] AST 15 ALKPHOS 116 Joce Zamudio MD, [facility] [phone] Terry Wolfe MD - 10/09/2021 10:29 AM CDT Consult Date: 10/09/2021 REQUESTING PHYSICIAN: Dallin Farah MD. FINANCIAL SERVICE REP: Dallas Wolfe MD. REASON FOR CONSULTATION: End-stage [...] [place]. REVIEW OF SYSTEMS: He feels relatively well [...] MD MT: ETREMT Name: JONATAN MEJIA. Account: [id number] : 1945 Consult Date: 10/09/2021 Document: [id number] Terry Wolfe MD - 10/09/2021 10:24 AM CDTAssociated Order(s): NEPHROLOGY IP CONSULT See dictation. Confirmation # [id number]. documented in this encounter ED Notes Essence Osuna RN - 10/09/2021 1:16 PM CDT Pt received one unit of RBC this morning, tolerated well, no transfusion reaction. Stepdaughter Melaine jin, aware of patient transfer to [facility]. Advanced to clear liquid diet, tolerating well. Pt will be NPO at midnight for EGD on 10/10. Kaylee Trejo RN - 10/08/2021 11:05 PM CDT [facility] ED Nurse Handoff Report Jonatan Mejia is [...] X 1. Lift room needed:No. Bariatric: No Wheel Press Operator Needed: No Isolation: No. Infection: Not Applicable. [...] Brianna, , and informed her of admission [facility] boarding status. She will visit tomorrow and [...] - 10/08/2021 6:30 PM CDT sent from [place] ER. Dialysis patient with hypotension today. Given 500ml and 1 unit PRBC at [place]. Florentino Ragsdale MD - 10/08/2021 6:23 PM [...] Pharmacy-Admission Medication History - Erlin Dodd, [facility] - 10/08/2021 10:14 PM CDT Admission medication history interview status for this patient is complete. See [facility] admission navigator for allergy information, prior to admission medications and immunization status. Medication history interview done, indicate source(s): Patient Medication history resources (including written lists, pill bottles, clinic record): Janice [facility] Pharmacy: [id number] - [place], [place] - [address] [facility] [phone] Changes made to TRAFFIC OR SYSTEM DISPATCHER medication list: Added: ALL Actions taken by pharmacist (provider contacted, etc):None Additional medication history information:None Medication reconciliation/reorder completed by provider prior to medication history? No Prior to Admission medications Medication Sig Last Dose Taking? Auth Provider Shelter End Date allopurinol (ZYLOPRIM) 100 MG tablet [...] Yes fluticasone (FLONASE) 50 MCG/ACT nasal spray [place] 1 spray in nostril daily 10/07/2021 at [...] Diagnosis HEMODIALYSIS SINGLE TREATMENT Routine 10/11/2021 SETUP ([facility]) 4:33 PM CDT HEMODIALYSIS DIALYZER ([facility]) Routine 10/11/2021 2:28 PM CDT IP [...] surface antigen (10/11/2021 7:46 AM CDT) [facility] Method Time Signature Hepatitis B Nonreactive Nonreactive [...] e Number [facility] C[facility]/PROT/ENDO [facility] [place] [address] Core/Prot/Endo [address] [facility] [address] Building, Room 3-580 (ABNORMAL) CBC with platelets (10/11/2021 6:36 AM CDT) [facility] Method Time Signature WBC Count 7.1 4.0 [...] City/State/ZIP Code [place] [address] Care Lab [address] Lab (1st floor, no room number) (ABNORMAL) Basic metabolic panel (10/11/2021 6:36 AM CDT) [facility] Method Time Signature Sodium 134 [...] and gender (Brigette et al., NEJM, DOI: 10.1056/[id number]) Specimen Anatomical Collection Method / Collection Time Recei annie Time (Source) Location / Volume Laterality Blood STRUCTURE OF RIGHT Venipuncture / 10/11/2021 6:36 2 07/2021 6:42 HAND / Unknown Unknown AM CDT AM CDT Dallin Farah DO LAB - BLOOD ORDERABLES Performing Organization Address City/State/ZIP Code [place] [address] Care Lab [address] Lab (1st floor, no room number) [...] - BEAKER POCT Performing Organization Address City/[facility]/ZIP Code Phon e [place] [address] Care Lab [address] Lab (1st floor, no room number) Surgical Pathology Exam (10/10/2021 8:58 AM CDT) Component Value Ref Test Analysis Performed Pathologis t Range Method Time At Signature Case Report Surgical Pathology Report ? Case: [id number] ? Authorizing Provider: ??Carb allo, Joce ? Collected: ? 10/10/2021 08:58 AM ? 2 8:22 AM LABORA TORY ? MD Edgard ? CDT [facility] Received: ?10/10/2021 09:42 AM ? [...] entirely submitted in 1 cassette. (MARIO Saldaña [facility]) Microscopic Microscopic examination Description was [...] Address City/State/ZIP Code [place] [address] Care Lab [address] [facility] Lab (1st floor, no room number) UPPER GI ENDOSCOPY (10/10/2021 8:18 AM CDT) Component Value Ref Test Analysis Performed At [facility] Range Method Time Signature Upper [facility] RADIOLOGY Endoscopy RESULTS Patient Name: Jonatan Mejia ? Procedure Date: 09/18 8:18 AM ? Account Num flako: [id number] Date of : 1945 ?Admit Type: Inp [...] Model ?# GIF-H190, Endora # 205, SN #[id number] was ?introduced through the mouth, and advanced [...] Note Initiated On: 10/10/2021 8:18 AM MRN: ?[id number] Procedure Date: ? 10/10/2021 8:18:14 AM Total [...] with platelets (10/10/2021 7:22 AM CDT) [facility] Method Time Signature WBC Count [...] City/State/ZIP Code [place] [address] Care Lab [address] Lab (1st floor, no room number) (ABNORMAL) Basic metabolic panel (10/10/2021 7:22 AM CDT) [facility] Method Time Signature Sodium 132 [...] and gender (Brigette et al., NEJM, DOI: 10.1056/[id number]) Specimen Anatomical Collection Method / Collection Time Recei annie Time (Source) Location / Volume Laterality Blood STRUCTURE OF RIGHT Venipuncture / 10/10/2021 7:22 07/2 06/2021 7:31 UPPER LIMB / Unknown AM CDT AM CDT Unknown Dallin Farah DO LAB - BLOOD ORDERABLES Performing Organization Address City/State/ZIP [place] [address] Care Lab [address] [...] - BLOOD ORDERABLES Performing Organization Address City/[facility]/ZIP Code [place] [address] Care Lab [address] Lab (1st floor, no room number) [...] - BLOOD ORDERABLES Performing Organization Address City/[facility]/ZIP [place] [address] Care Lab [address] Lab (1st floor, no room number) [...] - BLOOD ORDERABLES Performing Organization Address City/[facility]/ZIP [place] [address] Care Lab [address] Lab (1st floor, no room number) Transfuse red blood cells (unit) No special requirements (10/09/2021 11:51 AM CDT) Dallin Simons MD BLOOD TRANSFUSION ORDERABLES Transfuse red blood cells (unit), 1 Units No special requirements (10/09/2021 11:51 AM CDT) Dallin Simons MD BLOOD TRANSFUSION ORDERABLES (ABNORMAL) CBC with platelets (10/09/2021 9:12 AM CDT) [facility] gist Method Time [...] City/State/ZIP Code [place] [address] Care Lab [address] Lab (1st floor, no room number) (ABNORMAL) Basic metabolic panel (10/09/2021 9:12 AM CDT) [facility] Method Time Signature Sodium 134 [...] and gender (Brigette et al., NEJM, DOI: 10.1056/[id number]) Specimen Anatomical Collection Method / Collection Time Recei annie Time (Source) Location / Volume Laterality Blood STRUCTURE OF RIGHT Venipuncture / 10/09/2021 9:12 07/2 05/2021 9:34 HAND / Unknown Unknown AM CDT AM CDT Layne Rossi PA-C LAB - BLOOD ORDERABLES Performing Organization Address City/State/ZIP Code [place] [address] Care Lab [address] Lab (1st floor, no room number) Prepare red blood cells (unit) (10/09/2021 6:52 AM CDT) [facility] Method Time Signature CROSSMATCH Compatible RH BLOOD BANK UNIT ABO/RH O Neg RH BLOOD BANK Unit Number [id number] RH BLOOD BANK Unit Status Transfused RH BLOOD BANK Blood Red Blood Cells RH BLOOD Component Type BANK Product Code [id number] RH BLOOD BANK CODING SYSTEM [id number] RH BLOOD BANK UNIT TYPE ISBT 9500 RH BLOOD BANK ISSUE DATE AND [id number] RH BLOOD TIME BANK Specimen (Source) Anatomical Collection Method Collection Time Re ceived Time Location / / Volume Laterality 10/09/2021 6:52 AM CDT Dallin Simons MD BLOOD BANK PRODUCT ORDERABLE S Performing Organization Address City/State/ZIP Code Phon e Number RH BLOOD BANK [address] [place] [address] Transfuse red blood cells (unit) No special [...] RESULTS Atrial Rate 39 BPM RADIOLOGY RESULTS AL Interval ms RADIOLOGY RESULTS QRS Duration 126 ms RADIOLOGY RESULTS QT 442 ms RADIOLOGY RESULTS QTc 477 ms RADIOLOGY RESULTS P [place] degrees RADIOLOGY RESULTS R AXIS 107 degrees RADIOLOGY RESULTS T [place] 33 degrees RADIOLOGY RESULTS Interpretation Atrial fibrillation RADIO LOGY ECG Right bundle branch block RESU LTS Abnormal ECG No previous ECGs available Confirmed by - EMERGENCY [place] PHYSICIAN ([id number]), commercial production editor ANDRÉS HATCH ([id number]) on 10/11/2021 6:42:29 AM Specimen Anatomical Collection Method Collection Time Receive d Time (Source) Location / / Volume Laterality 10/09/2021 12:52 10/11/2021 6:42 AM CDT AM CDT Layne Ray Rossi PA-C ECG ORDERABLES Performing Organization Address City/State/ZIP Code Phon e Number RADIOLOGY RESULTS Prepare red blood cells (unit) (10/08/2021 11:46 PM CDT) [facility] gist Method Time Signature CROSSMATCH Compatible RH BLOOD BANK UNIT ABO/RH O Neg RH BLOOD BANK Unit Number [id number] RH BLOOD BANK Unit Status Transfused RH BLOOD BANK Blood Red Blood Cells RH BLOOD Component Type BANK Product Code [id number] RH BLOOD BANK CODING SYSTEM [id number] RH BLOOD BANK UNIT TYPE ISBT 9500 RH BLOOD BANK ISSUE DATE AND [id number] RH BLOOD TIME BANK Specimen (Source) Anatomical Collection Method Collection Time Re ceived Time Location / / Volume Laterality 10/08/2021 11:46 PM CDT Layne Rossi PA-C BLOOD BANK PRODUCT ORDERABLE S Performing Organization Address City/State/ZIP Code Phon e Number RH BLOOD BANK [address] [place] [address] (ABNORMAL) Hemoglobin (10/08/2021 10:47 PM CDT) athologist [...] City/State/ZIP Code [place] [address] Care Lab [address] [facility] Lab (1st floor, no room number) [...] - BEAKER POCT Performing Organization Address City/[facility]/ZIP Code Phon [place] [address] Care Lab [address] Lab (1st floor, no room number) [...] the Xpert Xpress SARS-CoV-2 Assay on the [employer]. A dditional information about this [...] COVID-19. This test was validated by the [facility]. This laboratory is certified under the Clinical Laboratory Improvement Amendments of 1988 (CLIA-88) as qualified to perform high complexity laboratory testing. Florentino Ragsdale MD LAB - MICRO GENERAL ORDERABL ES Performing Organization Address City/[facility]/ZIP [place] [address] Care Lab [address] Lab (1st floor, no room number) [...] Address City/State/ZIP [place] [address] Care Lab [address] Lab (1st floor, no room number) [...] Address City/State/ZIP [place] [address] Care Lab [address] Lab (1st floor, no room number) [...] City/State/ZIP Code [place] [address] Care Lab [address] [facility] Lab (1st floor, no room number) Adult Type and Screen (10/08/2021 7:02 PM CDT) [facility] RE2 Method Time Signature ABO/RH(D) O NEG 10/08/2021 RH BLOOD 6:39 PM CDT BANK Antibody Negative Negative 10/08/2021 RH BLOOD Screen 6:39 PM CDT BANK SPECIMEN [id number] 10/08/2021 RH BLOOD EXPIRATION 6:39 PM CDT BANK DATE Specimen Anatomical Collection Method / Collection Time Recei annie Time (Source) Location / Volume Laterality Blood STRUCTURE OF RIGHT Venipuncture / 10/08/2021 7:02 09/18 7:10 UPPER LIMB / Unknown PM CDT PM CDT Unknown Florentino Ragsdale MD LAB - BLOOD BANK TEST ORDER Performing Organization Address [facility]/ZIP Code Phon e Number RH BLOOD BANK [address] [place] [address] (ABNORMAL) Comprehensive metabolic panel (10/08/2021 7:02 PM CDT) [facility] RE2 Method Time Signature Sodium 136 133 - [...] and gender (Brigette et al., NEJM, DOI: 10.1056/[id number]) Specimen Anatomical Collection Method / Collection Time Recei annie Time (Source) Location / Volume Laterality Blood STRUCTURE OF RIGHT Venipuncture / 10/08/2021 7:02 09/18 7:10 UPPER LIMB / Unknown PM CDT PM CDT Unknown Florentino Ragsdale MD LAB - BLOOD ORDERABLES Performing Organization Address City/State/ZIP Code [place] [address] Care Lab [address] [facility] Lab (1st floor, no room number) [...] (ROCEPHIN) 2 g vial to attach to [facility] Bag 8:34 PM CDT 2 g [...] MIN PRN, op ioid reversal, Starting on [place] 10/10/21 at 1011, Administer intravenous route when [...] Orders Generic Provider)1208 (Given - Provider: Kaylee rTejo, OVI) 0816 (Given - Provider: Melanie Rodriguez, [...] Trejo RN) 0815 (Given - Provider: Melanie Rodriugez RN) 1 capsule, Oral, DAILY, First dose [...] Provider: Melanie Rodriguez, OVI)1838 (Given - Provider: Aarcelis Goldstein, OVI) 1 g, Oral, 3 TIMES [...] MIN PRN, op ioid reversal, Starting on [place] 10/10/21 at 1011, Administer intravenous route when [...] 2 MIN PRN, opioid reversal, Starting on [place] 10/10/21 at 1011, Administer intramuscular if an [...] 0143 documented in this encounter Care Teams Evp Marketing Relationship Specialty Start Date End Date Liban Leos PCP - General Family Medicine 10/08/21 [address] [place] [address] Ernie Pompa MD MD Nephrology 10/08/21 [address] [place] [address] documented as of this encounter
--- OUTSIDE RECORDS SUMMARY | 2021-11-25 10:52 | XMS_ITS | Encounter Summary ---
:1945 Author Organization [facility] Address [address] [place] [address] Care Team Providers Name Role Phone Liban [...] on filedocumented in this encounter Care Teams Needle Punch Machine Operator Helper Relationship Specialty Start Date End Date Liban Leos PCP - General Family Medicine 10/08/21 [address] [place], [place] [phone] Ernie Pompa MD MD Nephrology 10/08/21 [address] [place] [address] documented as of this encounter
--- OUTSIDE RECORDS SUMMARY | 2021-11-25 10:52 | XMS_ITS | Encounter Summary ---
:1945 Author Organization [place] Address [facility] [place] [address] Care Team Providers Name Role Phone Unavailable Primary Care Provider Unavailable Encounter Details Date Type Department Care Team Description 04/07/2019 Records - [facility] GERIATRIC SERVICES [facility] [address] [place] [id number] [place] [phone] [id number] Social History Tobacco Use Types Packs/Day Years Used Date Never Assessed Sex Assigned at Date Recorded Not on file documented as of this encounter Plan of Treatment Not on filedocumented as of this encounter Procedures Procedure Name Priority Date/Time Associated Diagnosis Comme nts BASIC METABOLIC Routine 04/08/2019 7:45 AM Result s for this PANEL [facility] [employer] [facility] procedure are i n the results section. CBC WITH PLATELETS Routine 04/08/2019 7:45 AM Res ults for this [employer] [employer] [facility] procedure are i n the results section. documented in this encounter Results (ABNORMAL) Basic metabolic panel (04/08/2019 7:45 AM [facility]) [facility] Method Time Signature Sodium 137 136 - 145 04/08/2019 [facility]ALTH mmol/L 10:53 AM LABORATORY Potassium 5.2 (H) 3.5 - 5.0 04/08/2019 [facility] mmol/L 10:53 AM LABORATORY Chloride 102 98 - 107 04/08/2019 [facility] mmol/L 10:53 AM LABORATORY Carbon Dioxide 22 22 - 31 04/08/2019 [facility] (CO2) mmol/L 10:53 AM LABORATORY Anion Gap 13 5 - 18 04/08/2019 [facility] mmol/L 10:53 AM LABORATORY Glucose 209 (H) 70 - 125 04/08/2019 [facility] mg/dL 10:53 AM LABORATORY Calcium 10.3 8.5 - 10.5 04/08/2019 [facility] mg/dL 10:53 AM LABORATORY Urea Nitrogen 101 (H) 8 - 28 04/08/2019 [facility] mg/dL 10:53 AM LABORATORY Creatinine 3.66 (H) 0.70 - 04/08/2019 [facility] 1.30 mg/dL 10:53 AM LABORATORY GFR Estimate If 20 (L) >60 04/08/2019 HEALTH Black mL/min/1.7 10:[address] LABORATORY GFR Estimate 16 (L) >60 04/08/2019 [facility] mL/min/1.7 10:[address] LABORATORY Specimen Anatomical Collection Method / Collection Time Recei annie Time (Source) Location / Volume Laterality Blood specimen STRUCTURE OF RIGHT Venipuncture / 04/08/2019 7:45 (specimen) UPPER LIMB / Unknown AM [facility] [employer] 10:22 AM [facility] Unknown Narrative [facility] - 04/08/2019 10:53 AM [facility] [employer] Fasting Glucose reference range is 70-99 mg/dL per [employer] (ADA) maryan marrero. [facility] - BLOOD ORDERABLES Performing Organization Address City/State/ZIP Code Phon e Number [facility] [place] [id number] [place] [address] [place] [id number], RUST (ABNORMAL) CBC with platelets (04/08/2019 7:45 AM [facility] [employer] [facility]) [facility] gist Method Time Signature WBC 5.2 4.0 - 11.0 04/08/2019 [facility] thou/uL 10:32 AM [facility] RBC Count 2.52 (L) 4.40 - 04/08/2019 [facility] 6.20 10:32 AM [facility] Hemoglobin 7.9 (L) 14.0 - 04/08/2019 [facility] 18.0 g/dL 10:32 AM [facility] Hematocrit 25.2 (L) 40.0 - 04/08/2019 [facility] 54.0 % 10:32 AM [facility] MCV 100 80 - 100 04/08/2019 [facility] fL 10:32 AM [facility] MCH 31.3 27.0 - 04/08/2019 [facility] 34.0 pg 10:32 AM [facility] MCHC 31.3 (L) 32.0 - 04/08/2019 [facility] 36.0 g/dL 10:32 AM [facility] RDW 19.4 (H) 11.0 - 04/08/2019 [facility] 14.5 % 10:32 AM [facility] Platelet Count 140 140 - 440 04/08/2019 [facility]ALTH [facility]/uL 10:32 AM [facility] Mean Platelet 10.4 8.5 - 12.5 04/08/2019 [facility] Volume fL 10:32 AM [facility] Specimen Anatomical Collection Method / Collection Time Recei annie Time (Source) Location / Volume Laterality Blood specimen STRUCTURE OF RIGHT Venipuncture / 04/08/2019 7:45 (specimen) UPPER LIMB / Unknown AM [facility] [facility] 10:22 AM [facility] Unknown [facility] - BLOOD ORDERABLES Performing Organization Address City/State/ZIP Code Phon e Number [facility] [address] [facility] [address] [facility] documented in this encounter Visit Diagnoses Not on filedocumented in this encounter
--- OUTSIDE RECORDS SUMMARY | 2021-11-25 10:52 | XMS_ITS ---
:1945 Author Organization [facility], NA DOCUMENT DISCLAIMER The information in the [facility] Continuity of Care Document represents a summary [...] SOCIAL HISTORY Tobacco Use Status Tobacco Type Former smoker Cigarettes Caregiver Characteristics No Information Available Characteristics of [...] 1,000 mid run, Every units - push 2021 Units/mL Systemic Treatment, Total treatment minutes 240 Heparin Sodium Bolus, Every 2000 Intravenous March Active (Porcine) 1,000 Treatment, units - push 2021 Units/mL Systemic Total treatment minutes 240 Iron Sucrose 1X Week 50 mg Intravenous October Ac tive (Venofer) - push 2021 Mircera Every 2 weeks 200 mcg Intravenous October A ctive - push 2021 Etelcalcetide Post 10 mg Intravenous September 27September 10, D iscontinued (Parsabiv) Dialysis, 3X - push 2021 2022 Week Home Medications Medication Instructions Dosage Route Start [...] June 23, Active once a day 2019 Aspir-81 81 mg Take by mouth 1 tablet by mouth October Discontinued once a day as 2021 directed VITAL SIGNS Post-Treatment Vital Signs Vital Sign Value Date / Time Blood Pressure-sitting 92/40 mmHg November 24 06:55 AM Blood Pressure-standing 122/54 mmHg November 24 06:55 AM Heart Rate 64 beats per minute November 24, 2021 0 6:55 AM Respiratory Rate 18 breaths per minute November 24, 2021 06:55 AM Temperature 97.8 deg. F November 24, 2021 0 6:55 AM Weight Vital Sign Value Date / Time Estimated Dry Weight 108 kg November 19, 2021 11:59 PM Pre-Dialysis 112.10 kg November 24, 2021 0 6:55 AM Post-Dialysis 108.00 kg November 24, 2021 0 6:55 AM Other Other Value Date / Time Height 173 cm August 25, 2021 12:00 AM [facility] RESULTS Hematology Result Type Result Value Relevant Reference Interpretation Date Range Hemoglobin x 3 27.9 % Male: 14.0 [...] Low October 202021 g/dL; Female: 12.0-16.0 g/dL Bone/Mineral Result Type Result Value Relevant Reference Interpretation Date Range PTH-Intact, Plasma 203 pg/mL 16 to 80 pg/mL High October 27, 2021 Infectious Diseases Result Type Result Value Relevant Reference Interpretation Date Range Hep B Surface Ab 993 mIU/mL < 10 mIU/mL, Non- - Januar y 2021 (anti-HBs) Immune Hep B core Ab Negative Negative - March 24 Total (anti-HBc) Hep B Surface Ag Negative Negative - October 20, 2021 (HBsAg) DIALYSIS PRESCRIPTION Conventional Hemodialysis Data Element Value Order Date/Time November 19, 2021 Frequency 3X Week Treatment Days MonWedFri Dialyzer [id number] Optiflux Treatment Time (Total Minutes) 240 min Blood Flow Rate (mL/min) 400 mL/min Dialysate Flow Rate Manual 800 Estimated Dry Weight 108 kg Dialysate Concentrate 2.0 K, 2.5 Ca, [...] Co mpleted Vaccine, Dose 1 of 2 [id number], series October 30, 2019 40.0 mcg Intramuscul ar Completed 4 of 4 [id number]-B-[id number], series July 03, 2019 40.0 mcg Intramuscula r Completed 3 of 4 [id number]-N-[id number], series June 03, 2019 40.0 mcg Intramuscula r Completed 2 of 4 TLGZURI-P-RDPEV, series May 03, 2019 40.0 mcg Intramusc ular Completed 1 of 4 TRANSPLANT WAITLIST STATUS No Information on Transplant Waitlist Status ADVANCE DIRECTIVES Directive Description Ordered By Effective Date Resuscitation status Full Code Ernie Pompa Mar 26 2 DIALYSIS TREATMENTS Conventional Hemodialysis Date Pre-Treatment Post-Treatment Duration BFR Dialysate Dialyzer Dialysis Meds Vitals Vitals (hr) (mL/min) Access Admin November Weight 110.80 Weight 108.00 04:00:00 440 2.0 K, 180nre Hemod ialysis-AV Fistula-Standard, Left Upper Arm, Other/Unknown Doxercalciferol (Hectorol); 5mcg,Intravenous - push 2021 kg kg 2.5 Ca, Optiflux Etelca lcetide (Parsabiv); 7.5mg,Intravenous - push 1.0 Mg, Heparin Sodi um (Porcine) 1,000 Units/mL Systemic; 1000units,Intravenous - push 100 Heparin Sodium (Porcine) 1,000 Units/mL Systemic; 2000units,Intravenous - push Dextrose (G2251) Blood Pressure-sitting 90/44 mmHg Blood Pressure-sitting 10 3/42 mmHg Blood Pressure-standing 92/45 mmHg Blood Pressure-standing 112/53 mmHg Heart Rate 81 beats per Heart Rate 65 beats per minute minute Respiratory Rate 16 breaths per Respiratory Rate 16 breaths per minute minute Temperature 98.2 deg. F Temperature 98.0 deg. F November Weight 112.00 Weight 109.50 04:00:00 400 2.0 K, 180nre Hemod ialysis-AV Fistula-Standard, Left Upper Arm, Other/Unknown Doxercalciferol (Hectorol); 5mcg,Intravenous - push 2021 kg kg 2.5 Ca, Optiflux Etelca lcetide (Parsabiv); 7.5mg,Intravenous - push 1.0 Mg, Heparin Sodi um (Porcine) 1,000 Units/mL Systemic; 2000units,Intravenous - push 100 Heparin Sodium (Porcine) 1,000 Units/mL Systemic; 1000units,Intravenous - push Dextrose Iron Sucros e (Venofer); 50mg,Intravenous - push (G2251) Blood Pressure-sitting 107/48 mmHg Blood Pressure-sitting 10 1/47 mmHg Blood Pressure-standing 99/49 mmHg Blood Pressure-standing 126/47 mmHg Heart Rate 80 beats per Heart Rate 65 beats per minute minute Respiratory Rate 20 breaths per Respiratory Rate 18 breaths per minute minute Temperature 97.7 deg. F Temperature 97.8 deg. F November Weight 112.10 Weight 108.00 04:00:00 400 2.0 K, 180nre Hemod ialysis-AV Fistula-Standard, Left Upper Arm, Other/Unknown Doxercalciferol (Hectorol); 5mcg,Intravenous - push 2021 kg kg 2.5 Ca, Optiflux Etelca lcetide (Parsabiv); 7.5mg,Intravenous - push 1.0 Mg, Heparin Sodi um (Porcine) 1,000 Units/mL Systemic; 1000units,Intravenous - push 100 Heparin Sodium (Porcine) 1,000 Units/mL Systemic; 2000units,Intravenous - push Dextrose Mircera; 20 0mcg,Intravenous - push (G2251) Blood Pressure-sitting 110/47 mmHg Blood Pressure-sitting 92 /40 mmHg Blood Pressure-standing 104/56 mmHg Blood Pressure-standing 122/54 mmHg Heart Rate 85 beats per Heart Rate 64 beats per minute minute Respiratory Rate 20 breaths per Respiratory Rate 18 breaths per minute minute Temperature 98.1 deg. F Temperature 97.8 deg. F
--- OUTSIDE RECORDS SUMMARY | 2021-11-25 10:52 | XMS_ITS | Encounter Summary ---
:1945 Author Organization [place] Address [facility] [place] [address] Care Team Providers Name Role Phone Liban Leos Primary Care Provider Ernie Pompa MD Unavailable Reason for Visit Reason Comments Hypotension Auth/Cert Specialty Diagnoses / Procedures Referred By Contact Refer red To Contact Med Surg Diagnoses UGI bleed UGI bleed 5 Medical Surgical [address] [place], [place] [address] Phone: Fax: Referral ID Status Reason Start Date Expiration Date Visits Requ ested Visits Authorized [id number] 1 1 Encounter Details Date Type Department Care Team Description 10/10/2021 Surgery [facility] Lizz, ESOPHAGOGA STRODUODENOSCOPY [place] PeriOp Joce biopsies Services MD [place] [address] [place] [address] [address] [place] [address] Surgery Details Date/Time Status Location [...] Pulse 72 10/10/2021 7:20 AM per telephone services sales representative CDT Temperature 36.5 ??C (97.7 ??F) 10/09/2021 [...] 10/11/2021 10:42 AM CDT Hospitalist Discharge Summary [facility] Jonatan Mejia Date of : 1945 [...] daily fluticasone (FLONASE) 50 MCG/ACT nasal spray [place] 1 spray in nostril daily fluticasone-salmeterol (ADVAIR [...] ulcer and??morbid obesity??who??presents to the ED from [facility] due to concerns of hematemesis and melanotic stool. He had just finished HD (took 1.2L) and presented to [facility] due to concerns of dizziness and hematemesis. ?? Work up at [facility] showed hgb of 7.5 and soft pressures in the 100's. CT abd pelvis showed normal distal esophagus, stomach and normal liver. No symptoms of obstruction or mass. There were moderate ascites in the dependent abdomen. He received NS bolus (500cc) and 1 unit(s) PRBC and transferred to [facility] ED. Work up in our ED [...] is something he should revisit with his event coordinator. He does also have a history of [...] discharge was: 35 Minutes Dallin Farah DO [facility] Hospitalist [place] [address] 10/11/2021 documented in this encounter Medications at Time of Discharge Medication Sig Dispensed Refills Start Date End Date allopurinol (ZYLOPRIM) Take 100 mg by mouth 0 100 MG tablet daily atorvastatin (LIPITOR) Take 20 mg by mouth 0 11/19 20 MG tablet daily fluticasone (FLONASE) 50 [place] 1 spray in 0 12/15 MCG/ACT nasal [...] walker and gait belt, denies pain, GREY, H5iqnocdanau on RA. VSS, continues to be anuric. [...] to treatment See Adult Hemodialysis flowsheet in [facility] for further details and post assessment. Machine water alarm in place and functioning. Transducer pods intact and checked every 15min. Pt returned via bed. Chlorine/Chloramine water system checked every 4 hours. Outpatient Dialysis at [facility] treatment report given to Delilah Goldstein [...] as tolerate. No heparin. Plan discussed with adjunct professor of law and patient at the bedside. Interval History: [...] medications, labs and imaging. Frederick Alcaraz MD [facility] - Nephrology Office phone :[phone] Pager: [phone] Jovita Blackmon RN - 10/11/2021 7:05 AM [...] Farah DO - 10/10/2021 12:36 PM CDT [facility] Hospitalist Progress Note Name: Jonatan Mejia [...] morbid obesity??who presents to the ED from [facility] due to concerns of hematemesis and melanotic stool. He had just finished HD (took 1.2L) and presented to [facility] due to concerns of dizziness and hematemesis. ?? Work up at [facility] showed hgb of 7.5 and soft pressures in the 100's. CT abd pelvis showed normal distal esophagus, stomach and normal liver. No symptoms of obstruction or mass. There were moderate ascites in the dependent abdomen. He received NS bolus (500cc) and 1 unit(s) PRBC and transferred to [facility] ED. Work up in our ED [...] past 24 hour(s)). Dallin Farah DO [facility] [place]ist [place] [address] 10/10/2021 Terry Wolfe MD - 10/10/2021 9:14 [...] mcg/hr (10/09/21 1126) Current active medications and ADDICTIONS COUNSELOR medications reviewed, see medication list for details. [...] results for input(s): MAG in the last 89338 hours. No results for input(s): PHOS in the last 13672 hours. Recent Labs Lab Test 10/10/21 0722 [...] Farah DO - 10/09/2021 10:04 AM CDT [facility] Hospitalist Progress Note Name: Jonatan Mejia [...] morbid obesity??who presents to the ED from [facility] due to concerns of hematemesis and melanotic stool. He had just finished HD (took 1.2L) and presented to [facility] due to concerns of dizziness and hematemesis. ?? Work up at [facility] showed hgb of 7.5 and soft pressures in the 100's. CT abd pelvis showed normal distal esophagus, stomach and normal liver. No symptoms of obstruction or mass. There were moderate ascites in the dependent abdomen. He received NS bolus (500cc) and 1 unit(s) PRBC and transferred to [facility] ED. Work up in our ED [...] past 24 hour(s)). Dallin Farah DO [facility] Hospitalist Clark Lentz [facility] [place] [address] 10/09/2021 documented in this encounter H&P Notes Layne Rossi PA-C - 10/08/2021 9:27 PM CDT [facility] Admission History and Physical Examination NAME: [...] morbid obesity??who presents to the ED from [facility] due to concerns of hematemesis and melanotic stool. He had just finished HD (took 1.2L) and presented to [facility] due to concerns of dizziness and hematemesis. Work up at [facility] showed hgb of 7.5 and soft bps in the 100's. CT abd pelvis showed normal distal esophagus, stomach and normal liver. No sxs of obstruction or mass. There were moderate ascites in the dependent abd. He received NS bolus (500cc) and 1u PRBC and transferred to [facility] ED. Work up in our ED [...] morbid obesity??who presents to the ED from [facility] due to concerns of hematemesis and melanotic stool. He had just finished HD (took 1.2L) and presented to [facility] due to concerns of dizziness and hematemesis. Work up at [facility] showed hgb of 7.5 and soft bps in the 100's. CT abd pelvis showed normal distal esophagus, stomach and normal liver. No sxs of obstruction or mass. There were moderate ascites in the dependent abd. He received NS bolus (500cc) and 1u PRBC and transferred to [facility] ED. Work up in our ED [...] 50 MCG/ACT nasal spray Yes Yes Sig: [place] 1 spray in nostril daily fluticasone-salmeterol (ADVAIR [...] 16 AST -- 15 Layne Rossi PA-C [facility] Medicine October 08, 2021 Securely message with the [employer] Console (learn more here) Text page via [facility] Paging/Directory Associated attestation - Fadi Viveros [...] 11:33 AM CDTAssociated Order(s): GASTROENTEROLOGY IP CONSULT [facility] Gastroenterology Consultation Joce Zamudio MD Patient [...] upper GI bleeding. History of Present Illness: Jonaatn Mejia is a 76 year old male [...] Medication Sig Last Dose Taking? Auth Provider [facility] End Date allopurinol (ZYLOPRIM) 100 MG tablet [...] Yes fluticasone (FLONASE) 50 MCG/ACT nasal spray [place] 1 spray in nostril daily 10/07/2021 at [...] 15 ALKPHOS 116 Joce Zamudio MD, F[facility] [phone] Terry Wolfe MD - 10/09/2021 10:29 AM CDT Consult Date: 10/09/2021 REQUESTING PHYSICIAN: Dallin Farah MD. FISH ROE TECHNICIAN: Dallas Wolfe MD. REASON FOR CONSULTATION: End-stage renal disease, on hemodialysis. HISTORY OF PRESENT ILLNESS: This is a 73-year-old with end-stage renal disease who dialyzes Monday, Monday, Monday. [place] house alone. He drives [...] lives alone in a [place]. REVIEW OF SYSTEMS: He feels relatively well [...] ETREMT Name: JONATAN MEJIA. MRN: [id number] Account: [id number] : 1945 Consult Date: 10/09/2021 Document: [id number] Terry Wolfe MD - 10/09/2021 10:24 AM CDTAssociated Order(s): NEPHROLOGY IP CONSULT See dictation. Confirmation # [id number]. documented in this encounter ED Notes Essence Osuna RN - 10/09/2021 1:16 PM CDT Pt received one unit of RBC this morning, tolerated well, no transfusion reaction. Stepdaregina jin, aware of patient transfer to [facility]. Advanced to clear liquid diet, tolerating well. Pt will be NPO at midnight for EGD on 10/10. Kaylee Trejo RN - 10/08/2021 11:05 PM CDT [facility] ED Nurse Handoff Report Jonatan Mejia [...] X 1. Lift room needed:No. Bariatric: No Special Education Secretary Needed: No Isolation: No. Infection: Not Applicable. [...] Brianna, , and informed her of admission [facility] boarding status. She will visit [...] - 10/08/2021 6:30 PM CDT sent from [facility]. Dialysis patient with hypotension today. Given 500ml and 1 unit PRBC at [facility]. Florentino Ragsdale MD - 10/08/2021 6:23 PM [...] Pharmacy-Admission Medication History - Lisbeth Doddn Angie, [facility] - 10/08/2021 10:14 PM CDT Admission medication history interview status for this patient is complete. See [facility] admission navigator for allergy information, prior to admission medications and immunization status. Medication history interview done, indicate source(s): Patient Medication history resources (including written lists, pill bottles, clinic record): Evelin Camacho Pharmacy: [id number] - [place], [place] - [address] [facility] [phone] Changes made to ADDICTIONS COUNSELOR medication list: Added: ALL Actions taken by pharmacist (provider contacted, etc):None Additional medication history information:None Medication reconciliation/reorder completed by provider prior to medication history? No Prior to Admission medications Medication Sig Last Dose Taking? Auth Provider [facility] End Date allopurinol (ZYLOPRIM) 100 MG tablet [...] Yes fluticasone (FLONASE) 50 MCG/ACT nasal spray [place] 1 spray in nostril daily 10/07/2021 at [...] Diagnosis HEMODIALYSIS SINGLE TREATMENT Routine 10/11/2021 SETUP ([facility]) 4:33 PM CDT HEMODIALYSIS DIALYZER ([facility]) Routine 10/11/2021 2:28 PM CDT IP TERMINATION [...] B surface antigen (10/11/2021 7:46 AM CDT) muzu tv Method Time Signature Hepatitis B Nonreactive Nonreactive [...] e Number [facility]/PROT/ENDO [facility] [place] [address] Core/Prot/Endo [address] [facility] [address], Room 3-580 (ABNORMAL) CBC with platelets (10/11/2021 6:36 AM CDT) muzu tv Method Time Signature WBC Count 7.1 4.0 [...] Address City/State/ZIP Code Phon [place] [address] Care Lab [address] Lab (1st floor, no room number) (ABNORMAL) Basic metabolic panel (10/11/2021 6:36 AM CDT) [facility] Method Time Signature Sodium 134 133 [...] and gender (Brigette et al., NEJM, DOI: 10.1056/[id number]) Specimen Anatomical Collection Method / Collection Time Recei annie Time (Source) Location / Volume Laterality Blood STRUCTURE OF RIGHT Venipuncture / 10/11/2021 6:36 07/2 07/2021 6:42 HAND / Unknown Unknown AM CDT AM CDT Dallin Farah DO LAB - BLOOD ORDERABLES Performing Organization Address City/State/ZIP Code Phon e Number [place] [phone] Care Lab [address] Lab (1st floor, no room number) [...] LAB - BEAKER POCT Performing Organization Address [facility]/ZIP Code Phon e Number RH [place] [address] Care Lab [address] Lab (1st floor, no room number) Surgical Pathology Exam (10/10/2021 8:58 AM CDT) Component Value Ref Test Analysis Performed Pathologis t Range Method Time At Signature Case Report Surgical Pathology Report ? Case: [id number] ? Authorizing Provider: ??Carb allo, Joce ? Collected: ? 10/10/2021 08:58 AM ? 2 8:22 AM NAHID DE LEON ? MD [place] ? CDT Ordering Location: ? [facility] ?? Received: ?10/10/2021 09:42 AM ? Main [...] was 2 8:22 AM [facility] Case Images 2 [...] Address City/State/ZIP Code Phon [place] [address] Care Lab [address] [facility] Lab (1st floor, no room number) UPPER GI ENDOSCOPY (10/10/2021 8:18 AM CDT) Component Value Ref Test Analysis Performed At [facility] Range Method Time Signature Upper GI [facility] RADIOLOGY Endoscopy RESULTS Patient Name: Jonatan Mejia ? Procedure Date: 09/18 8:18 AM ? Account Num flako: [id number] Date of : 1945 ?Admit Type: Inp [...] Model ?# [id number]-H190, Endora # 205, SN #[id number] was ?introduced through the mouth, and advanced [...] Note Initiated On: 10/10/2021 8:18 AM MRN: ?[id number] Procedure Date: ? 10/10/2021 8:18:14 AM Total [...] CBC with platelets (10/10/2021 7:22 AM CDT) [facility] Method Time Signature WBC Count 7.2 [...] City/State/ZIP Code Phon e Number [place] [phone] Care Lab [address] Lab (1st floor, no room number) (ABNORMAL) Basic metabolic panel (10/10/2021 7:22 AM CDT) [facility] Method Time Signature Sodium 132 (L) [...] and gender (Brigette et al., NEJM, DOI: 10.1056/[id number]) Specimen Anatomical Collection Method / Collection Time Recei annie Time (Source) Location / Volume Laterality Blood STRUCTURE OF RIGHT Venipuncture / 10/10/2021 7:22 /06/2021 7:31 UPPER LIMB / Unknown AM CDT AM CDT Unknown Dallin Farah DO LAB - BLOOD ORDERABLES Performing Organization Address City/State/ZIP Code Phon [place] [phone] Care Lab [address] Lab (1st floor, no room number) [...] LAB - BLOOD ORDERABLES Performing Organization Address City/[facility]/[place] [address] Care Lab [address] Lab (1st floor, no room number) [...] LAB - BLOOD ORDERABLES Performing Organization Address [facility]/[place] [address] Care Lab [address] Lab (1st floor, no room number) [...] LAB - BLOOD ORDERABLES Performing Organization Address City/[facility]/[place] [address] Care Lab [address] Lab (1st floor, no room number) Transfuse red blood cells (unit) No special requirements (10/09/2021 11:51 AM CDT) Dallin Simons MD BLOOD TRANSFUSION ORDERABLES Transfuse red blood cells (unit), 1 Units No special requirements (10/09/2021 11:51 AM CDT) Dallin Simons MD BLOOD TRANSFUSION ORDERABLES (ABNORMAL) CBC with platelets (10/09/2021 9:12 AM CDT) [facility] gist Method Time Signature WBC Count [...] City/State/ZIP Code Phon e Number [place] [phone] Care Lab [address] Lab (1st floor, no room number) (ABNORMAL) Basic metabolic panel (10/09/2021 9:12 AM CDT) [facility] Method Time Signature Sodium 134 133 [...] and gender (Brigette et al., NEJ, DOI: 10.1056/[id number]) Specimen Anatomical Collection Method / Collection Time Recei annie Time (Source) Location / Volume Laterality Blood STRUCTURE OF RIGHT Venipuncture / 10/09/2021 9:12 /05/2021 9:34 HAND / Unknown Unknown AM CDT AM CDT Layne Rossi PA-C LAB - BLOOD ORDERABLES Performing Organization Address City/State/ZIP Code Phon e Number [place] [address] Care Lab [address] Lab (1st floor, no room number) Prepare red blood cells (unit) (10/09/2021 6:52 AM CDT) [facility] Method Time Signature CROSSMATCH Compatible RH BLOOD BANK UNIT ABO/RH O Neg RH BLOOD BANK Unit Number [id number] RH BLOOD BANK Unit Status Transfused RH BLOOD BANK Blood Red Blood Cells RH BLOOD Component Type BANK Product Code [id number] RH BLOOD BANK CODING SYSTEM [id number] RH BLOOD BANK UNIT TYPE ISBT 9500 RH BLOOD BANK ISSUE DATE AND [id number] RH BLOOD TIME BANK Specimen (Source) Anatomical Collection Method Collection Time Re ceived Time Location / / Volume Laterality 10/09/2021 6:52 AM CDT Dallin Simons MD BLOOD BANK PRODUCT ORDERABLE S Performing Organization Address City/State/ZIP Code Phon e Number RH BLOOD BANK [address] [place] [address] Transfuse red blood cells (unit) No special [...] RESULTS Atrial Rate 39 BPM RADIOLOGY RESULTS [place] Interval ms RADIOLOGY RESULTS QRS Duration 126 ms RADIOLOGY RESULTS QT 442 ms RADIOLOGY RESULTS QTc 477 ms RADIOLOGY RESULTS P [place] degrees RADIOLOGY RESULTS R AXIS 107 degrees RADIOLOGY RESULTS T [place] 33 degrees RADIOLOGY RESULTS Interpretation Atrial fibrillation RADIO [place]Y ECG Right bundle branch block RESU LTS Abnormal ECG No previous ECGs available Confirmed by - [facility] Aravind PHYSICIAN ([id number]), story editor ANDRÉS HATCH ([id number]) on 10/11/2021 6:42:29 AM Specimen Anatomical Collection Method Collection Time Receive d Time (Source) Location / / Volume Laterality 10/09/2021 12:52 10/11/2021 6:42 AM CDT AM CDT Layne Ray Rossi PA-C ECG ORDERABLES Performing Organization Address City/[facility]/ZIP Code Phon e Number RADIOLOGY RESULTS Prepare red blood cells (unit) (10/08/2021 11:46 PM CDT) Patholo gist Method Time Signature CROSSMATCH Compatible RH BLOOD BANK UNIT ABO/RH O Neg RH BLOOD BANK Unit Number [id number] RH BLOOD BANK Unit Status Transfused RH BLOOD BANK Blood Red Blood Cells RH BLOOD Component Type BANK Product Code [id number] RH BLOOD BANK CODING SYSTEM [id number] RH BLOOD BANK UNIT TYPE ISBT 9500 RH BLOOD BANK ISSUE DATE AND RH BLOOD TIME BANK Specimen (Source) Anatomical Collection Method Collection Time Re ceived Time Location / / Volume Laterality 10/08/2021 11:46 PM CDT Layne Rossi PA-C BLOOD BANK PRODUCT ORDERABLE S Performing Organization Address City/[facility]/ZIP Code Phon e Number RH BLOOD BANK [address] [place] [address] (ABNORMAL) Hemoglobin (10/08/2021 10:47 PM CDT) athologist [...] LAB - BLOOD ORDERABLES Performing Organization Address City/[facility]/ZIP Code Phon [place] [address] Care Lab [address] [facility] Lab (1st floor, no room number) [...] LAB - BEAKER POCT Performing Organization Address City/[facility]/ZIP Code Phon e Number RH [place]AT[place] [address] Care Lab [address] Lab (1st floor, no room number) [...] the Xpert Xpress SARS-CoV-2 Assay on the [employer]. A dditional information about this [...] COVID-19. This test was validated by the [facility]. This laboratory is certified under the Clinical Laboratory Improvement Amendments of 1988 (CLIA-88) as qualified to perform high complexity laboratory testing. Florentino Ragsdale MD LAB - MICRO GENERAL ORDERABL ES Performing Organization Address City/State/ZIP Code Phon e Number [place] [address] Care Lab [address] Lab (1st floor, no room number) [...] Address City/State/ZIP Code Phon [place] [phone] Care Lab [address] Lab (1st floor, no room number) [...] LAB - BLOOD ORDERABLES Performing Organization Address City/[facility]/ZIP Code Phon [place] [phone] Care Lab [address] Lab (1st floor, no room number) [...] LAB - BLOOD ORDERABLES Performing Organization Address City/[facility]/ZIP Code Phon e Number [place] [address] Care Lab [address] Lab (1st floor, no room number) Adult Type and Screen (10/08/2021 7:02 PM CDT) [facility] Signature ABO/RH(D) O NEG 10/08/2021 RH BLOOD 6:39 PM CDT BANK Antibody Negative Negative 10/08/2021 RH BLOOD Screen 6:39 PM CDT BANK SPECIMEN [id number] 10/08/2021 RH BLOOD EXPIRATION 6:39 PM CDT BANK DATE Specimen Anatomical Collection Method / Collection Time Recei annie Time (Source) Location / Volume Laterality Blood STRUCTURE OF RIGHT Venipuncture / 10/08/2021 7:02 09/18 7:10 UPPER LIMB / Unknown PM CDT PM CDT Unknown Florentino Ragsdale MD LAB - BLOOD BANK TEST ORDER Performing Organization Address [facility]/ZIP Code Phon e Number RH BLOOD BANK [address] [place] [address] [place] [address] (ABNORMAL) Comprehensive metabolic panel (10/08/2021 7:02 PM CDT) muzu tv Method Time Signature Sodium 136 133 - [...] and gender (Brigette et al., NEJ, DOI: 10.1056/[id number]) Specimen Anatomical Collection Method / Collection Time Recei annie Time (Source) Location / Volume Laterality Blood STRUCTURE OF RIGHT Venipuncture / 10/08/2021 7:02 09/18 7:10 UPPER LIMB / Unknown PM CDT PM CDT Unknown Florentino Ragsdale MD LAB - BLOOD ORDERABLES Performing Organization Address City/State/ZIP Code Phon [place] [address] Care Lab [address] Lab (1st floor, no room number) [...] 0143 documented in this encounter Care Teams Ladle Filler Relationship Specialty Start Date End Date Liban Leos PCP - General Family Medicine 10/08/21 [address] [place] [address] Ernie Pompa MD MD Nephrology 10/08/21 [address] [place] [address] documented as of this encounter
--- OUTSIDE RECORDS SUMMARY | 2021-11-25 10:52 | XMS_ITS | Encounter Summary ---
:1945 Author Organization [place] Address [address] [place] [address] Care Team Providers Name Role Phone Liban Leos Primary Care Provider Ernie Pompa MD Unavailable Reason for Visit Auth/Cert Specialty Diagnoses / Procedures Referred By Contact Refer red To Contact Med Surg Diagnoses UGI bleed UGI bleed Rh 5 Medical Surgical [address] [place], [place] [address] Phone: Fax: Referral ID Status Reason Start Date Expiration Date Visits Requ ested Visits Authorized [id number] 1 1 Encounter Details Date Type Department Care Team Description 10/10/2021 Anesthesia Event [facility] Olvin Mosley de witt PeriOp Services MD [place] [address] [place], [place] ANESTHESIA [address] [address] [facility] [address] [address] [place], [place] [address] Anesthesia Record Procedure Summary Procedure Name Responsible Anesthesia Start Anesthesia Stop Anesthesiologist Time Time ESOPHAGOGASTRODUODENOSCOPY Herman Mosley 10/10/21 0842 09/18 07/09 0918 biopsies (N/A Mouth) MD [place] Events Date Time Event Comment 10/10/2021 0830 TOOLROOM ATTENDANT Ready for Procedure 0842 An Start 0842 Present 0845 AN REASSESS I attest that I have identified and re-evaluated the patient immediately before the induction of anesthesia and I am satisfied that t he anesthetic plan is suitable for the patient's condition and procedure. The f irst vital signs recorded are pre- inducti on. Yamilka Bear APRN TOOLROOM ATTENDANT 0845 An Start Data 0857 Present 0912 [...] 10/09/21 1543 by Access exact date); 1543 Kalyee Trejo S, (unknown exact time); RN Left; Forearm Incision/Surgical Site 10/10/21; 0906; 10/10/21 0906 by Mouth; scope Esesnce Walton, RN insertion only Peripheral IV 10/08/21; 18 G; 10/08/21 0000 by 10/11/21 2102 b y Anterior, Right Kayla Thompson, OIV Inpatient, Nurse Peripheral IV 10/08/21; Right; 10/08/21 [...] 0918 documented in this encounter Care Teams Producer Assistant Relationship Specialty Start Date End Date Liban Leos PCP - General Family Medicine 10/08/21 [address] [place] [address] Ernie Pompa MD MD Nephrology 10/08/21 [address] [place] [address] documented as of this encounter
--- OUTSIDE RECORDS SUMMARY | 2021-11-25 10:52 | XMS_ITS | Encounter Summary ---
:1945 Author Organization [place] Address [facility] [place] [address] Care Team Providers Name Role Phone Liban Leos Primary Care Provider Ernie Pompa MD Unavailable Reason for Referral Care Coordination (Routine: Next available opening) - Pending Review Specialty Diagnoses / Procedures Referred By Contact Refer red To Contact Diagnoses Other specified counseling Liban Leos [address] [place] [address] Referral ID Status Reason Start Date Expiration Date Visits V isits Requested Authorized [id number] Pending 10/12/2021 10/12/2022 1 1 Review Encounter Details Date Type Department Care Team Description 10/12/2021 Orders Only [facility] [address] Le[address] rd L Other specified Care Coordination [address] counseling [address] [place] [address] [place] [address] Social History Tobacco Use Types [...] Type Priority Associated Diagnoses Order S [facility] Referral Routine: Next Other specified Expected: Discharge - available opening counseling 10/12/2021 Referral to CC (Approximate) , Expires: 10/12/2022 documented as of this encounter Visit Diagnoses Diagnosis Other specified counseling documented in this encounter Care Teams Cathode Ray Tube Assembler Relationship Specialty Start Date End Date Liban Leos PCP - General Family Medicine 10/08/21 [address] [place] [address] Ernie Pompa MD MD Nephrology 10/08/21 [address] [place] [address] documented as of this encounter
--- OUTSIDE RECORDS SUMMARY | 2021-11-25 10:52 | XMS_ITS | Clinical Summary ---
:1945 Author Organization [place] Address [address] [place] [address] Care Team Providers Name Role Phone Liban [...] (LIPITOR) 20 MG mouth daily tablet fluticasone [place] 1 spray in 0 12/15/2020 Active (FLONASE) [...] counseling Liban Gruber 10/10/2021 [facility] 10/10/2021 Surgery Surgery Lizz, [...] Diagnosis HEMODIALYSIS SINGLE TREATMENT Routine 10/11/2021 SETUP ([facility]) 4:33 PM CDT HEMODIALYSIS DIALYZER ([facility]) Routine [...] this procedure are in the results section. CT IMAGING - HIM SCAN 10/08/2021 3:55 PM CDT from Last 3 Months Results Hepatitis B surface antigen (10/11/2021 7:46 AM CDT) [facility] Method Time Signature Hepatitis B Nonreactive Nonreactive [...] e Number [facility] CORE/PROT/ENDO [facility] [place] [place] [address] Core/Prot/Endo [address] [facility] [address] Building, Room 3-580 (ABNORMAL) Basic metabolic panel (10/11/2021 6:36 AM CDT)Only the most recent of 3 resultswithin the time period is included. [facility] Method Time Signature Sodium 134 133 - [...] and gender (Brigette et al., NEJM, DOI: 10.1056/[id number]) Specimen Anatomical Collection Method / Collection Time Recei annie Time (Source) Location / Volume Laterality Blood STRUCTURE OF RIGHT Venipuncture / 10/11/2021 6:36 07/07/2021 6:42 HAND / Unknown Unknown AM CDT AM CDT Dallin Farah DO LAB - BLOOD ORDERABLES Performing Organization Address City/State/ZIP Code Phon [place] [phone] Care Lab [address] Lab (1st floor, no room number) [...] MCV 110 (H) 78 - 100 10/11/2021 LABORATORY fL 6:47 AM CDT MCH 33.0 26.5 - 10/11/2021 LABORATORY 33.0 pg 6:47 AM CDT MCHC 30.1 (L) 31.5 - 10/11/2021 LABORATORY 36.5 g/dL 6:47 AM CDT RDW 19.0 (H) 10.0 - 10/11/2021 LABORATORY 15.0 % 6:47 AM CDT Platelet [...] Address City/State/ZIP Code Phon [place] [address] Care Lab [address] Lab (1st floor, no room number) (ABNORMAL) Glucose by meter (10/10/2021 9:21 AM CDT)Only the most recent of2 resultswithin the time period is included. athologist Signature GLUCOSE BY 126 (H) 70 - 99 10/10/2021 RH LABORATORY METER POCT mg/dL 9:27 AM CDT POC Specimen (Source) Anatomical Collection Method Collection Time Re ceived Time Location / / Volume Laterality Blood, Capillary BLOOD SPECIMEN / 10/10/2021 9:21 07/2 06/2021 9:27 Unknown AM CDT AM CDT Rhys Duarte MD LAB - [facility] POCT Performing Organization Address City/State/ZIP Code Phon e Number RH [place] [address] Care Lab [address] Lab (1st floor, no room number) Surgical Pathology Exam (10/10/2021 8:58 AM CDT) Component Value Ref Test Analysis Performed Pathologis t Range Method Time At Signature Case Report Surgical Pathology Report ? Case: [id number] ? Authorizing Provider: ??Carb allo, Joce ? Collected: ? 10/10/2021 08:58 AM ? 2 8:22 AM LABORA TORY ? MD Edgard ? CDT Ordering Location: ? [facility] ?? Received: ?10/10/2021 09:42 AM ? Main OR ? Pathologist: ? Antony Cameron MD PhD ? Specimens: ?? A) - Small Int estine, Duodenum, Duodenal Bulb ? B) - Stom ach ? Final A(1). Duodenum, biopsy: Electronically Diagnosis -Small intestinal mucosa wit h [...] was 2 8:22 AM LABORATORY completed at [facility] Case Images 2 8:22 AM [...] Organization Address City/State/ZIP [place] [phone] Care Lab [address] Lab (1st floor, no room number) UPPER GI ENDOSCOPY (10/10/2021 8:18 AM CDT) Component Value Ref Test Analysis Performed At [facility] Range Method Time Signature Upper GI [facility] RADIOLOGY Endoscopy RESULTS Patient Name: Shaun Ocampo ? Procedure Date: 09/18 8:18 AM ? Account Num flako: [id number] Date of : 1945 ?Admit Type: Inp [...] Model ?# [id number]-H190, Endora # 205, SN #[id number] was ?introduced through the mouth, and advanced [...] Diet as tolerated. ?- Page out for [facility] al team. ?- Will follow. ? JOCE ZAMUDIO MD 10/10/2021 8:24:36 AM I was physically present for the entire viewing portion of t he exam. JOCE ZAMUDIO MD Number of Addenda: 0 Note Initiated On: 10/10/2021 8:18 AM MRN: ?[id number] Procedure Date: ? 10/10/2021 8:18:14 AM Total [...] STRUCTURE OF RIGHT Venipuncture / 10/10/2021 2:15 072 06/2021 2:32 HAND / Unknown Unknown AM CDT AM CDT Christie Roldan MD LAB - BLOOD ORDERABLES Performing Organization Address City/[facility]/ZIP Code Phon e Number [place] [address] Care Lab [address] [facility] Lab (1st floor, no room number) Transfuse red blood cells (unit) No special requirements (10/09/2021 11:51 AM CDT)Only the most recent of2 resultswithin the time period is included. Dallin Simons MD BLOOD TRANSFUSION ORDERABLES Prepare red blood cells (unit) (10/09/2021 6:52 AM CDT)Only the most recent of2 resultswithin the time period is included. [facility] Method Time Signature CROSSMATCH Compatible RH BLOOD BANK UNIT ABO/RH O Neg RH BLOOD BANK Unit Number [id number] RH BLOOD BANK Unit Status Transfused RH BLOOD BANK Blood Red Blood Cells RH BLOOD Component Type BANK Product Code [id number] RH BLOOD BANK CODING SYSTEM [id number] RH BLOOD BANK UNIT TYPE ISBT 9500 RH BLOOD BANK ISSUE DATE AND [id number] RH BLOOD TIME BANK Specimen (Source) Anatomical Collection Method Collection Time Re ceived Time Location / / Volume Laterality 10/09/2021 6:52 AM CDT Dallin Simons MD BLOOD BANK PRODUCT ORDERABLE S Performing Organization Address City/[facility]/ZIP Code Phon e Number RH BLOOD BANK [address] [place] [address] EKG 12-lead, tracing only (10/09/2021 12:52 AM CDT) Component Value Ref Range Test Analysis Performed Pathologis t Method Time At Signature Systolic Blood mmHg RADIOLOGY Pressure RESULTS Diastolic Blood mmHg RADIOLOGY Pressure RESULTS Ventricular Rate 70 BPM RADIOLOGY RESULTS Atrial Rate 39 BPM RADIOLOGY RESULTS IN Interval ms RADIOLOGY RESULTS QRS Duration 126 ms RADIOLOGY RESULTS QT 442 ms RADIOLOGY RESULTS QTc 477 ms RADIOLOGY RESULTS P [place] degrees RADIOLOGY RESULTS R AXIS 107 degrees RADIOLOGY RESULTS T [place] 33 degrees RADIOLOGY RESULTS Interpretation Atrial fibrillation RADIO LOGY ECG Right bundle branch block RESU LTS Abnormal ECG No previous ECGs available Confirmed by - [facility] [place], PHYSICIAN ([id number]), editor farm journal ANDRÉS HATCH ([id number]) on 10/11/2021 6:42:29 AM Specimen Anatomical Collection Method Collection Time Receive d Time (Source) Location / / Volume Laterality 10/09/2021 12:52 10/11/2021 6:42 AM CDT AM CDT Layne MARTIN-Josy ECG ORDERABLES Performing Organization Address City/State/ZIP Code [...] the Xpert Xpress SARS-CoV-2 Assay on the [employer]pert [employer]. A dditional information about this [...] COVID-19. This test was validated by the [facility]. This laboratory is certified under the Clinical Laboratory Improvement Amendments of 1988 (CLIA-88) as qualified to perform high complexity laboratory testing. Florentino Ragsdale MD LAB - MICRO GENERAL ORDERABL ES Performing Organization Address City/[facility]/ZIP Code Phon [place] [address] Care Lab [address] Lab (1st floor, no room number) (ABNORMAL) INR (10/08/2021 8:44 PM CDT) P athologist Signature INR 1.34 (H) 0.85 - 1.15 10/08/2021 RH LABORATORY 9:55 PM CDT Specimen Anatomical Collection Method / Collection Time Recei annie Time (Source) Location / Volume Laterality Blood STRUCTURE OF RIGHT Venipuncture / 10/08/2021 8:44 07/04/2021 9:41 UPPER LIMB / Unknown PM CDT PM CDT Unknown Florentino Ragsdale MD LAB - BLOOD ORDERABLES Performing Organization Address City/[facility]/ZIP Code Phon [place] [address] Care Lab [address] Lab (1st floor, no room number) [...] LAB - BLOOD ORDERABLES Performing Organization Address City/[facility]/ZIP Code Phon [place] [address] Care Lab [address] Lab (1st floor, no room number) [...] LAB - BLOOD ORDERABLES Performing Organization Address City/[facility]/ZIP Code Phon e Number [place] [address] Care Lab [address] Lab (1st floor, no room number) Adult Type and Screen (10/08/2021 7:02 PM CDT) [facility] Method Time Signature ABO/RH(D) O NEG 10/08/2021 RH BLOOD 6:39 PM CDT BANK Antibody Negative Negative 10/08/2021 RH BLOOD Screen 6:39 PM CDT BANK SPECIMEN [id number] 10/08/2021 RH BLOOD EXPIRATION 6:39 PM CDT [...] e Number RH BLOOD BANK [address] [place] [address] (ABNORMAL) Comprehensive metabolic panel (10/08/2021 7:02 PM CDT) [facility] Method Time Signature Sodium 136 133 - [...] and gender (Brigette et al., NEJM, DOI: 10.1056/[id number]) Specimen Anatomical Collection Method / Collection Time Recei annie Time (Source) Location / Volume Laterality Blood STRUCTURE OF RIGHT Venipuncture / 10/08/2021 7:02 09/18 7:10 UPPER LIMB / Unknown PM CDT PM CDT Unknown Florentino Ragsdale MD LAB - BLOOD ORDERABLES Performing Organization Address City/State/ZIP Code Phon e Number LABORATORY [facility] [place] [address] Care Lab [address] Lab (1st floor, no room number) CT IMAGING - HIM SCAN (10/08/2021 3:55 PM CDT) Specimen (Source) Anatomical Collection Method Collection Time Re ceived Time Location / / Volume Laterality 10/08/2021 3:55 PM CDT Narrative This result has an attachment that is no t available. Provider Outside IMG CT ORDERABLES from Last 3 Months Insurance Payer Benefit Plan / Subscriber ID Effective Dates Phone Addre ss Type Group BCBS BCBS MEDICARE [id number] 2018-Sameer [phone] [address] [address] Medicare ADVANTAGE t 0 [place] [address] Advance Directives For more information, please contact: [phone] Latest Code Status on File Code Status Date Activated Date Inactivated Comments Full Code 10/11/2021 10:33 AM Code status determined by: Discussion with patient/ legal de cision maker Full Code 10/09/2021 1:43 AM 10/11/2021 10:33 AM All basic a nd advanced life-sustaining interventions ar e performed as appropriate Code status determined by: Discussion with patient/ legal de cision maker Care Teams Telephone Answering Service Operator Relationship Specialty Start Date End Date Liban Leos PCP - General Family Medicine 10/08/21 [address] [place] [address] Ernie Pompa MD MD Nephrology 10/08/21 [address] [place] [address]
--- OUTSIDE RECORDS SUMMARY | 2021-11-25 10:53 | XMS_ITS | Encounter Summary ---
:1945 Author Organization [place] Address [address] [place] [address] Care Team Providers Name Role Phone Unavailable Primary Care Provider Unavailable Encounter Details Date Type Department Care Team Description 04/03/2019 Records - [facility] GERIATRIC SERVICES [facility] [address] [place] [address] [place], [place] [phone] [id number] Social History Tobacco Use Types Packs/Day Years Used Date Never Assessed Sex Assigned at Date Recorded Not on file documented as of this encounter Plan of Treatment Not on filedocumented as of this encounter Procedures Procedure Name Priority Date/Time Associated Diagnosis Comme nts BASIC METABOLIC Routine 04/04/2019 6:30 AM Result s for this PANEL IDENTIFICATION CLERK procedure are i n the results section. CBC WITH PLATELETS Routine 04/04/2019 6:30 AM Res ults for this IDENTIFICATION CLERK procedure are i n the results section. documented in this encounter Results (ABNORMAL) CBC with platelets (04/04/2019 6:30 AM IDENTIFICATION CLERK) [facility] Method Time Signature WBC 7.7 4.0 - 11.0 04/04/2019 HEALTH thou/uL 9:51 AM [facility]OR[facility] RBC Count 2.58 (L) 4.40 - 04/04/2019 HEALTH 6.20 9:51 AM [facility] LABORATORY Hemoglobin 8.0 (L) 14.0 - 04/04/2019 HEALTH 18.0 g/dL 9:51 AM [facility] Hematocrit 26.3 (L) 40.0 - 04/04/2019 HEALTH 54.0 % 9:51 AM [facility] MCV 102 (H) 80 - 100 04/04/2019 HEALTH fL 9:51 AM [facility] MCH 31.0 27.0 - 04/04/2019 HEALTH 34.0 pg 9:51 AM [facility] MCHC 30.4 (L) 32.0 - 04/04/2019 HEALTH 36.0 g/dL 9:51 AM [facility] RDW 20.2 (H) 11.0 - 04/04/2019 HEALTH 14.5 % 9:51 AM [facility] Platelet Count 142 140 - 440 04/04/2019 HEALTH thou/uL 9:51 AM [facility] Mean Platelet 11.0 8.5 - 12.5 04/04/2019 HEALTH Volume fL 9:51 AM [facility] Specimen Anatomical Collection Method / Collection Time Recei annie Time (Source) Location / Volume Laterality Blood specimen STRUCTURE OF RIGHT Venipuncture / 04/04/2019 6:30 9:35 (specimen) UPPER LIMB / Unknown AM IDENTIFICATION CLERK AM IDENTIFICATION CLERK Unknown Alison Hollins LAB - BLOOD ORDERABLES Performing Organization Address City/State/ZIP Code Phon e Number [facility] [address] [address] [facility] LABORATORY (ABNORMAL) Basic metabolic panel (04/04/2019 6:30 AM IDENTIFICATION CLERK) [facility] gist Method Time Signature Sodium 140 136 - 145 04/04/2019 HEALTH mmol/L 11:11 AM [facility] Potassium 4.8 3.5 - 5.0 04/04/2019 HEALTH mmol/L 11:11 AM [facility] Chloride 104 98 - 107 04/04/2019 HEALTH mmol/L 11:11 AM [facility] Carbon Dioxide 23 22 - 31 04/04/2019 HEALTH (CO2) mmol/L 11:11 AM [facility] Anion Gap 13 5 - 18 04/04/2019 HEALTH mmol/L 11:11 AM [facility] Glucose 84 70 - 125 04/04/2019 HEALTH mg/dL 11:11 AM [facility] Calcium 10.2 8.5 - 10.5 04/04/2019 HEALTH mg/dL 11:11 AM [facility] LABORATORY Urea Nitrogen 92 (H) 8 - 28 04/04/2019 HEALTH mg/dL 11:11 AM [facility] Creatinine 3.32 (H) 0.70 - 04/04/2019 HEALTH 1.30 mg/dL 11:11 AM [facility] GFR Estimate If 22 (L) >60 04/04/2019 HEALTH Black mL/min/1.7 11:[address] LABORATORY GFR Estimate 18 (L) >60 04/04/2019 HEALTH mL/min/1.7 11:11 [address] LAB[address]AT[address] Specimen Anatomical Collection Method / Collection Time Recei annie Time (Source) Location / Volume Laterality Blood specimen STRUCTURE OF RIGHT Venipuncture / 04/04/2019 6:30 9:35 (specimen) UPPER LIMB / Unknown AM IDENTIFICATION CLERK AM IDENTIFICATION CLERK Unknown Narrative O LABORATORY - 04/04/2019 11:11 AM IDENTIFICATION CLERK Fasting Glucose reference range is 70-99 mg/dL per [employer] (ADA) maryan soriano Alison Hollins LAB - BLOOD ORDERABLES Performing Organization Address City/State/ZIP Code Phon e Number [place] [id number] [place] [address] LABORATORY O LABORATORY [address] [place] [address], [facility] documented in this encounter Visit Diagnoses Not on filedocumented in this encounter
--- OUTSIDE RECORDS SUMMARY | 2021-11-25 10:53 | XMS_ITS | Encounter Summary ---
:1945 Author Organization [facility] Address [address] [place] [address] Care Team Providers Name Role Phone Unavailable Primary Care Provider Unavailable Encounter Details Date Type Department Care Team Description 11/03/2021 Orders Only [facility] f Ernie Guzmán MD [address] [place] [address] [place], [place] [phone] (Wo rk) Social History Tobacco Use [...] 11/04/2021 Unless otherwise specified, test(s) performed at: [facility], [address] [place] [address], [place] [address] REGIONAL BUSINESS DEVELOPMENT MANAGER: Alhaji Noguera M.D., Ph.D For any questions, please call customer service at FREQUENCY:OTHER Resulting Agency Comment Specimen source: Blood Ernie Pompa MD LAB BLOOD ORDERABLES Performing Organization Address City/State/ZIP Code Phon e Number [facility] documented in this encounter Visit Diagnoses Not on filedocumented in this encounter
--- OUTSIDE RECORDS SUMMARY | 2021-11-25 10:53 | XMS_ITS | Encounter Summary ---
:1945 Author Organization [facility] Address [address] [place] [address] Care Team Providers Name Role Phone Unavailable Primary Care Provider Unavailable Encounter Details Date Type Department Care Team Description 09/29/2021 Orders Only [facility] f Ernie Guzmán MD [address] [place] [address] [place], [place] [phone] (Wo rk) Social History Tobacco Use [...] 09/30/2021 Unless otherwise specified, test(s) performed at: [facility], [address] [place] [address], [place] [address] ANNUAL CAMPAIGN MANAGER: Alhaji Noguera M.D., Ph.D For any [...] 09/30/2021 Unless otherwise specified, test(s) performed at: [facility], [address] [place], [place] [address]francisca HernandezS[facility] [place] [address] ANNUAL CAMPAIGN MANAGER: Alhaji Noguera M.D., Ph.D For any questions, please call customer service at FREQUENCY:OTHER Resulting Agency Comment Specimen source: Blood Ernie Pompa MD LAB BLOOD ORDERABLES Performing Organization Address City/[facility] Code Phon e Number [facility] documented in this encounter Visit Diagnoses Not on filedocumented in this encounter
--- OUTSIDE RECORDS SUMMARY | 2021-11-25 10:53 | XMS_ITS | Encounter Summary ---
:1945 Author Organization [facility] Address [address] [place] [address] Care Team Providers Name Role Phone Unavailable Primary Care Provider Unavailable Encounter Details Date Type Department Care Team Description 09/15/2021 Treatment [facility] f Ernie Guzmán MD [address] [place] [address] [place], [place] [phone] (Wo rk) Social History Tobacco Use Types Packs/Day Years Used Date Smoking Tobacco: Unknown Comments: Smoking History Info:Patient n ot screened Sex Assigned at Date Recorded Not on file documented as of this encounter Miscellaneous Notes Dialysis Note - Ernie Pompa MD - 09/15/2021 10:30 AM CDT Date: Sep 15, 2021 Patient Name: Shaun Ocampo : 1945 Chart #: [id number] Sex: M This patient was personally seen [...] AM ) BP (sit): 107/33 AP(-) / BIOMASS BOILER OPERATOR: n/a Pulse: 65 Chairside data as [...] mcg IVP Every 2 weeks 09/15/2021 09/14/2022 BIOMEDICAL REPAIR TECHNICIAN: Ernie Pompa MD [address]: [phone] SCHEDULE: -- 2nd Shift ACCESS: EDW: kg. [...] and do periodic extra UF treatments at [place] [facility] rather than risk more hypotension post-tx with use of midodrine and additional UF during treatments. He has fistulagram last week, went well and access working well since. 08/11: Continues to have problems with fluid gains. we have spent considerable time discussing this, he is trying to work on this but can't seem to avoid large gains. Will go to [place] [facility] for UF tomorrow, needs extra treatments every 2 weeks it looks like to maintain EDW. He does get SOB when >5K over dry weight in particular. 07/21/21: Continues to struggle with fluid gains, extra UF run scheduled tomorrow at [place] [facility]. He does feel more SOB when fluid overloaded. No new symptoms otherwise, he is enjoying the nicer weather which allows him to do more activity and not sit at home and drink fluids which he thinks will help with IDWG's. 07/14/21: Continues to have high gains, unfortunately [facility] without staff to open tomorrow for extra [...] improving. Fluid gains continue to be high, [place] [facility] not open on this week, says he will do his best withlimiting salt/fluid. HE does feel SOB with exertion with extra fluid on, no orthopnea. 05/26/21: Has SOB when >5 Kg over dry weight, extra run last week at [place] [facility] helped. Trying his best with fluid restriction. [...] extra run and we discussed going to [place] [facility] tomorrow for UF only run and he [...] again today, may need extra run at [place] [facility] if can't get down over next week. 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 06/10: Doing well overall, no new complaints, [...] He had infiltration last week, dialyzed at [facility] on Sat and went well, access [...] (08/18/21) Vascular Access Assessment: Type of access: [id number] Surgeon - Lary GARDNER 08/2021: fistulagram at [facility] with angioplasty of stenosis completed Impression and Plan Stable dialysis overall, no changes to prescription made Continue to work on fluid gains, likely will need extra UF run every couple of weeks at [place] I asked him to schedule follow-up with [...]
--- OUTSIDE RECORDS SUMMARY | 2021-11-25 10:53 | XMS_ITS | Encounter Summary ---
:1945 Author Organization [facility] Address [address] [place] [address] Care Team Providers Name Role Phone Unavailable Primary Care Provider Unavailable Encounter Details Date Type Department Care Team Description 08/11/2021 Treatment [facility] Ernie Guzmán MD [address] [place] [address] [place], [place] [phone] (Wo rk) Social History Tobacco Use Types Packs/Day Years Used Date Smoking Tobacco: Unknown Comments: Smoking History Info:Patient n ot screened Sex Assigned at Date Recorded Not on file documented as of this encounter Miscellaneous Notes Dialysis Note - Ernie Pompa MD - 08/11/2021 10:15 AM CDT Date: August 11, 2021 Patient Name: Shaun Ocampo : 1945 Chart #: [id number] Sex: M This patient was personally seen [...] AM ) BP (sit): 97/38 AP(-) / JOURNEYMAN LEVEL ACOUSTIC ANALYST: 177/134 Pulse: 67 Chairside data as of [...] mg IVP 1X Week 07/26/2021 07/25/2022 DIRECTOR PRESALES: Ernie Pompa MD LOCATION: [phone] SCHEDULE: -- 2nd Shift ACCESS: EDW: kg. DIALYZER: HD DURATION: NEEDLE SIZE: ANTICOAG: BATH: QB: ml/min QD: ml/min Subjective Tolerating dialysis well. 08/11: Continues to have problems with fluid gains. we have spent considerable time discussing this, he is trying to work on this but can't seem to avoid large gains. Will go to [facility] for UF tomorrow, needs extra treatments every 2 weeks it looks like to maintain EDW. He does get SOB when >5K over dry weight in particular. 07/21/21: Continues to struggle with fluid gains, extra UF run scheduled tomorrow at [facility]. He does feel more SOB when fluid overloaded. No new symptoms otherwise, he is enjoying the nicer weather which allows him to do more activity and not sit at home and drink fluids which he thinks will help with IDWG's. 07/14/21: Continues to have high gains, unfortunately [facility] without staff to open tomorrow for extra [...] improving. Fluid gains continue to be high, [facility] not open on this week, says he will do his best withlimiting salt/fluid. HE does feel SOB with exertion with extra fluid on, no orthopnea. 05/26/21: Has SOB when >5 Kg over dry weight, extra run last week at [facility] helped. Trying his best with fluid restriction. [...] extra run and we discussed going to [facility] tomorrow for UF only run and he [...] again today, may need extra run at [facility] if can't get down over next week. 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 06/10: Doing well overall, no new complaints, [...] Went to Urgent care -> ER in [place] yesterday,CT with R hydro but no obstructive [...] He had infiltration last week, dialyzed at [facility] on Sat and went well, access [...] (06/23/21) Vascular Access Assessment: Type of access: [id number] Surgeon - Lary GARDNER Access working well Impression and Plan Stable dialysis overall, no changes to prescription made Parsabiv to continue, calcitriol increase as able with Ca lower on this to get PTH to goal but is improving and phos is controlled Extra UF run tomorrow in [place], ongoing extra UF runs will likely be necessary with inability toget to EDW consistently Ernie Pompa MD [ Signed And locked electronically On 08/11/2021 at 10:17:39 AM ] Transcribed: Ernie Pompa ( 08/11/2021 ) documented in this encounter Plan of Treatment Not on filedocumented as of this encounter Visit Diagnoses Not on filedocumented in this encounter
--- OUTSIDE RECORDS SUMMARY | 2021-11-25 10:53 | XMS_ITS | Encounter Summary ---
:1945 Author Organization [facility] Address [address] [place] [address] Care Team Providers Name Role Phone Unavailable Primary Care Provider Unavailable Encounter Details Date Type Department Care Team Description 11/17/2021 Orders Only [facility] f Ernie Guzmán MD [address] [place] [address] [place], [place] [phone] (Wo rk) Social History Tobacco Use [...] 11/18/2021 Unless otherwise specified, test(s) performed at: [facility], [address] [place] [address], [place] [address] HOSE HANDLER: Alhaji Noguera M.D., Ph.D For any questions, please call customer service at FREQUENCY:OTHER Resulting Agency Comment Specimen source: Blood Ernie Pompa MD LAB BLOOD ORDERABLES Performing Organization Address City/State/ZIP Code Phon e Number [facility] documented in this encounter Visit Diagnoses Not on filedocumented in this encounter
--- OUTSIDE RECORDS SUMMARY | 2021-11-25 10:53 | XMS_ITS | Encounter Summary ---
:1945 Author Organization [facility] Address [address] [place] [address] Care Team Providers Name Role Phone Unavailable Primary Care Provider Unavailable Encounter Details Date Type Department Care Team Description 10/13/2021 Treatment [facility] f Ernie Guzmán MD [address] [place] [address] [place], [place] [phone] (Wo rk) Social History Tobacco Use Types Packs/Day Years Used Date Smoking Tobacco: Unknown Comments: Smoking History Info:Patient n ot screened Sex Assigned at Date Recorded Not on file documented as of this encounter Miscellaneous Notes Dialysis Note - Ernie Pompa MD - 10/13/2021 12:07 PM CDT Date: Oct 13, 2021 Patient Name: Shaun Ocampo : 1945 Chart #: [id number] Sex: M This patient was personally seen for a basic visit as part of routine weekly dialysis care. A reviewof the dialysis treatment, blood pressure, estimated dry weight and recent lab values was made. These were discussed with the patient and staff as necessary. COTTON SEED CULLER: Ernie Pompa MD LOCATION: [phone] SCHEDULE: M-W-F 2nd Shift ACCESS: EDW: kg. DIALYZER: HD DURATION: NEEDLE SIZE: ANTICOAG: BATH: QB: ml/min QD: ml/min Subjective Tolerating dialysis well. 10/13: Had GI bleeding on Monday, went to ER after dialysis, admitted at [facility], had 3u blood, EGDwithout obvious [...] and do periodic extra UF treatments at [facility] rather than risk more hypotension post-tx with use of midodrine and additional UF during treatments. He has fistulagram last week, went well and access working well since. 08/11: Continues to have problems with fluid gains. we have spent considerable time discussing this, he is trying to work on this but can't seem to avoid large gains. Will go to [facility] for UF tomorrow, needs extra treatments every 2 weeks it looks like to maintain EDW. He does get SOB when >5K over dry weight in particular. 07/21/21: Continues to struggle with fluid gains, extra UF run scheduled tomorrow at [facility]. He does feel more SOB when fluid overloaded. No new symptoms otherwise, he is enjoying the nicer weather which allows him to do more activity and not sit at home and drink fluids which he thinks will help with IDWG's. 07/14/21: Continues to have high gains, unfortunately [facility] without staff to open tomorrow for extra [...] improving. Fluid gains continue to be high, [facility] not open on this week, says he will do his best withlimiting salt/fluid. HE does feel SOB with exertion with extra fluid on, no orthopnea. 05/26/21: Has SOB when >5 Kg over dry weight, extra run last week at [facility] helped. Trying his best with fluid restriction. [...] extra run and we discussed going to [facility] tomorrow for UF only run and he [...] again today, may need extra run at [facility] if can't get down over next week. 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 06/10: Doing well overall, no new complaints, [...] Went to Urgent care -> ER in [place] yesterday,CT with R hydro but no obstructive [...] (08/20/21) Vascular Access Assessment: Type of access: [id number]/2019 Surgeon - Lary GARDNER 08/2021: fistulagram at [facility] with angioplasty of stenosis completed Impression and [...] Name: Shaun Ocampo : 1945 Chart #: [id number] Sex: M Patient has transitioned out of the following type of facility within the past 30 days: Discharging Facility: [facility] Patient caregiver is present? If yes, [...]
--- OUTSIDE RECORDS SUMMARY | 2021-11-25 10:53 | XMS_ITS | Encounter Summary ---
:1945 Author Organization [facility] Address [address] [place] [address] Care Team Providers Name Role Phone Unavailable Primary Care Provider Unavailable Encounter Details Date Type Department Care Team Description 10/27/2021 Treatment [facility] f Ernie Guzmán MD [address] [place] [address] [place], [place] [phone] (Wo rk) Social History Tobacco Use Types Packs/Day Years Used Date Smoking Tobacco: Unknown Comments: Smoking History Info:Patient n ot screened Sex Assigned at Date Recorded Not on file documented as of this encounter Miscellaneous Notes Dialysis Note - Ernie Pompa MD - 10/27/2021 10:07 AM CDT Date: Oct 27, 2021 Patient Name: Shaun Ocampo : 1945 Chart #: [id number] Sex: M This patient was personally seen [...] AM ) BP (sit): 99/43 AP(-) / ELECTRICIAN WIRING: 176/154 Pulse: 62 Chairside data as of [...] Values 08/27/2021 05/28/2021 04/23/2021 Access Flow [id number] Treatment Medication Orders Medication Sig Start [...] mcg IVP Every 2 weeks 10/27/2021 10/26/2022 SHAREPOINT WEB DEVELOPER: Ernie Pompa MD LOCATION: [place] [phone] SCHEDULE: -W- 2nd Shift EDW: kg. DIALYZER: HD DURATION: NEEDLE SIZE: ANTICOAG: BATH: QB: ml/min QD: ml/min Subjective Tolerating dialysis well. 10/27/21: He is doing much better after extra UF run last week at [facility]. BP adequate, challengingEDW today. His breathing is improved. Also went to wound care clinic at [facility] and they dressedwounds and he has follow-up and instructions for dressings and cares. He has no new symptoms and otherwise feels well. 10/13: Had GI bleeding on Monday, went to ER after dialysis, admitted at [facility], had 3u blood, EGDwithout obvious source, ASA [...] and do periodic extra UF treatments at [facility] rather than risk more hypotension post-tx with use of midodrine and additional UF during treatments. He has fistulagram last week, went well and access working well since. 08/11: Continues to have problems with fluid gains. we have spent considerable time discussing this, he is trying to work on this but can't seem to avoid large gains. Will go to [facility] for UF tomorrow, needs extra treatments every 2 weeks it looks like to maintain EDW. He does get SOB when >5K over dry weight in particular. 07/21/21: Continues to struggle with fluid gains, extra UF run scheduled tomorrow at [facility]. He does feel more SOB when fluid overloaded. No new symptoms otherwise, he is enjoying the nicer weather which allows him to do more activity and not sit at home and drink fluids which he thinks will help with IDWG's. 07/14/21: Continues to have high gains, unfortunately [facility] without staff to open tomorrow for extra [...] improving. Fluid gains continue to be high, [facility] not open on this week, says he will do his best withlimiting salt/fluid. HE does feel SOB with exertion with extra fluid on, no orthopnea. 05/26/21: Has SOB when >5 Kg over dry weight, extra run last week at [facility] helped. Trying his best with fluid restriction. [...] extra run and we discussed going to [facility] tomorrow for UF only run and he [...] again today, may need extra run at [facility] if can't get down over next week. 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 06/10: Doing well overall, no new complaints, [...] Went to Urgent care -> ER in [place] yesterday,CT with R hydro but no obstructive [...] He had infiltration last week, dialyzed at [facility] on Sat and went [...] prescription. Vascular Access Assessment Type of access: [id number]/2019 Surgeon - Lary GARDNER 08/2021: fistulagram at [facility] with angioplasty of stenosis completed Anemia Assessment [...] below goal. Intact PTH is above goal. Nutritionist will adjust binders and vitamin D per [...] high Extra UF run needed occasionally at [facility] when they are open, did last week [...]
--- OUTSIDE RECORDS SUMMARY | 2021-11-25 10:53 | XMS_ITS | Encounter Summary ---
:1945 Author Organization [facility] Address [address] [place] [address] Care Team Providers Name Role Phone Unavailable Primary Care Provider Unavailable Encounter Details Date Type Department Care Team Description 10/13/2021 Orders [facility] f Ernie Guzmán MD [phone] [place] [address] [place], [place] [phone] (Wo rk) Social History Tobacco Use [...] 10/14/2021 Unless otherwise specified, test(s) performed at: [facility], [address] [place] [address], [place] [address] HEALTH INFORMATION PROVIDER: Alhaji Noguera M.D., Ph.D For any questions, please call customer service at FREQUENCY:OTHER Resulting Agency Comment Specimen source: Blood Ernie Pompa MD LAB BLOOD ORDERABLES Performing Organization Address City/State/ZIP Code Phon e Number [facility] documented in this encounter Visit Diagnoses Not on filedocumented in this encounter
--- OUTSIDE RECORDS SUMMARY | 2021-11-25 10:53 | XMS_ITS | Encounter Summary ---
:1945 Author Organization [facility] Address [address] [place] [address] Care Team Providers Name Role Phone Unavailable Primary Care Provider Unavailable Encounter Details Date Type Department Care Team Description 08/25/2021 Orders [facility] f Ernie Guzmán MD [phone] [place] [address] [place], [place] [phone] (Wo rk) Social History Tobacco Use [...] 08/27/2021 Unless otherwise specified, test(s) performed at: [facility], [address] [place] [address] INSURANCE OFFICE SUPERVISOR: Alec Payan M.D. For any questions, please call customer service at FREQUENCY:OTHER Resulting Agency Comment Specimen source: Blood Ernie Pompa MD LAB BLOOD ORDERABLES Performing Organization Address City/State/ZIP Code Phon e Number [facility] documented in this encounter Visit Diagnoses Not on filedocumented in this encounter
--- OUTSIDE RECORDS SUMMARY | 2021-11-25 10:53 | XMS_ITS | Encounter Summary ---
:1945 Author Organization [facility] Address [address] [place] [address] Care Team Providers Name Role Phone Unavailable Primary Care Provider Unavailable Encounter Details Date Type Department Care Team Description 08/11/2021 Orders [facility] f Ernie Guzmán MD [phone] [place] [address] [place], [place] [phone] (Wo rk) Social History Tobacco Use [...] 08/12/2021 Unless otherwise specified, test(s) performed at: [facility], [address] [place] [address] OPERATIONS ASSISTANT: Alec Payan M.D. For any questions, please call customer service at FREQUENCY:OTHER Resulting Agency Comment Specimen source: Blood Ernie Pompa MD LAB BLOOD ORDERABLES Performing Organization Address City/State/ZIP Code Phon e Number [facility] documented in this encounter Visit Diagnoses Not on filedocumented in this encounter
--- OUTSIDE RECORDS SUMMARY | 2021-11-25 10:53 | XMS_ITS | Encounter Summary ---
:1945 Author Organization [facility] Address [address] [place] [address] Care Team Providers Name Role Phone Unavailable Primary Care Provider Unavailable Encounter Details Date Type Department Care Team Description 09/08/2021 Orders [facility] f Ernie Guzmán MD [phone] [place] [address] [place], [place] [phone] (Wo rk) Social History Tobacco Use [...] 09/09/2021 Unless otherwise specified, test(s) performed at: [facility], [address] [place] [address] FOOD AND NUTRITION SERVICES SUPERVISOR: Alec Payan M.D. For any questions, please call customer service at FREQUENCY:OTHER Resulting Agency Comment Specimen source: Blood Ernie Pompa MD LAB BLOOD ORDERABLES Performing Organization Address City/State/ZIP Code Phon e Number [facility] documented in this encounter Visit Diagnoses Not on filedocumented in this encounter
--- OUTSIDE RECORDS SUMMARY | 2021-11-25 10:53 | XMS_ITS | Encounter Summary ---
:1945 Author Organization [facility] Address [address] [place] [address] Care Team Providers Name Role Phone Unavailable Primary Care Provider Unavailable Encounter Details Date Type Department Care Team Description 10/20/2021 Orders [facility] f Ernie Guzmán MD [phone] [place] [address] [place], [place] [phone] (Wo rk) Social History Tobacco Use [...] Organization Address City/State/ZIP Code Phon e Number [facility] (10/20/2021) P athologist Signature % Urea 71 65 - 80 % [facility] Reduction [facility] Specimen (Source) Anatomical Collection Method Collection Time Re ceived Time Location / / Volume Laterality 10/20/2021 10/21/2021 3:38 AM CDT Resulting Agency Comment Specimen source: Plasma Ernie Pompa MD LAB BLOOD ORDERABLES Performing Organization Address City/[facility]/ZIP Code Phon e Number [facility] POST CHEMISTRY (10/20/2021) athologist Signature BUN Post 11 6 - 19 [facility] Dialysis mg/dL [facility] Specimen (Source) Anatomical Collection Method Collection Time Re ceived Time Location / / Volume Laterality 10/20/2021 10/21/2021 3:38 AM CDT Narrative [facility] - 10/21/2021 Unless otherwise specified, test(s) performed at: [facility], [address] [place] [address], [place] [address] RENTAL CAR PORTER: Alhaji Noguera M.D., Ph.D For any questions, please call customer service at FREQUENCY:MONTHLY Resulting Agency Comment Specimen source: Plasma Ernie Pompa MD LAB BLOOD ORDERABLES Performing Organization Address City/State/ZIP Code Phon e Number [facility] (ABNORMAL) Spectrae Chemistry (10/20/2021) [facility] gist Method Time Signature BUN 38 [...] 10/21/2021 Unless otherwise specified, test(s) performed at: [facility], [address] [place] [address], [place] [address] RENTAL CAR PORTER: Alhaji Noguera M.D., Ph.D For any questions, [...] 10/21/2021 Unless otherwise specified, test(s) performed at: [facility], [address] [place] [address], [place] [address] RENTAL CAR PORTER: Alhaji Noguera M.D., Ph.D For any questions, please call customer service at FREQUENCY:MONTHLY Resulting Agency Comment Specimen source: Blood Ernie Pompa MD LAB BLOOD ORDERABLES Performing Organization Address [facility] Phon e Number [facility] IMMUNO CHEMISTRY (10/20/2021) P athologist Signature Hep B Surface Negative Negative [facility] SPECT[facility] Ag [facility] Specimen (Source) Anatomical Collection Method Collection Time Re ceived Time Location / / Volume Laterality 10/20/2021 10/21/2021 3:50 AM CDT Narrative [facility] - 10/21/2021 Unless otherwise specified, test(s) performed at: [facility], [address] [place] [address], [place] [address] RENTAL CAR PORTER: Alhaji Noguera M.D., Ph.D For any questions, please call customer service at FREQUENCY:MONTHLY Resulting Agency Comment Specimen source: Plasma Ernie Pompa MD LAB BLOOD ORDERABLES Performing Organization Address [facility]/ZIP Code Phon e Number [facility] documented in this encounter Visit Diagnoses Not on filedocumented in this encounter
--- OUTSIDE RECORDS SUMMARY | 2021-11-25 10:53 | XMS_ITS | Encounter Summary ---
:1945 Author Organization [facility] Address [address] [place] [address] Care Team Providers Name Role Phone Unavailable Primary Care Provider Unavailable Encounter Details Date Type Department Care Team Description 03/31/2019 Records - [facility] GERIATRIC SERVICES [facility] [address] [place] [address] [place], [place] [phone] Social History Tobacco Use Types Packs/Day Years Used Date Never Assessed Sex Assigned at Date Recorded Not on file documented as of this encounter Plan of Treatment Not on filedocumented as of this encounter Procedures Procedure Name Priority Date/Time Associated Diagnosis Comme nts BASIC METABOLIC Routine 04/01/2019 7:55 AM Result s for this PANEL PATTERNATOR procedure are i n the results section. CBC WITH PLATELETS Routine 04/01/2019 7:55 AM Res ults for this PATTERNATOR procedure are i n the results section. documented in this encounter Results (ABNORMAL) CBC with platelets (04/01/2019 7:55 AM PATTERNATOR) [facility] Method Time Signature WBC 7.6 4.0 - 11.0 04/01/2019 HEALTH thou/uL 12:[address] [facility] RBC Count 2.48 (L) 4.40 - 04/01/2019 HEALTH 6.20 12:59 PM [facility] LABORATORY Hemoglobin 7.7 (L) 14.0 [...] 7:55 (specimen) UPPER LIMB / Unknown AM PATTERNATOR 12:23 PM PATTERNATOR Unknown Alison Hollins LAB - BLOOD ORDERABLES Performing Organization Address City/State/ZIP Code Phon e Number [place] [address] [address] [facility] (ABNORMAL) Basic metabolic panel (04/01/2019 7:55 AM PATTERNATOR) [facility] Method Time Signature Sodium 137 136 - 145 04/01/2019 HEALTH mmol/L 1:[address] [facility] Potassium 4.7 3.5 - 5.0 04/01/2019 HEALTH mmol/L 1:[address] [facility] Chloride 105 98 - 107 04/01/2019 HEALTH mmol/L 1:17 PM [facility] Carbon Dioxide 22 22 - 31 04/01/2019 HEALTH (CO2) mmol/L 1:17 PM [facility] Anion Gap 10 5 - 18 04/01/2019 HEALTH mmol/L 1:[address] [facility] Glucose 83 70 - 125 04/01/2019 HEALTH mg/dL 1:[address] [facility] Calcium 10.1 8.5 - 10.5 04/01/2019 HEALTH mg/dL 1:17 PM [facility] Urea Nitrogen 93 (H) 8 - 28 04/01/2019 HEALTH mg/dL 1:[address] [facility] Creatinine 3.02 (H) 0.70 - 04/01/2019 HEALTH 1.30 mg/dL 1:[address] [facility] GFR Estimate If 25 (L) >60 04/01/2019 HEALTH Black mL/min/1.7 1:[address] GFR Estimate 21 (L) >60 04/01/2019 HEALTH mL/min/1.7 1:[address] LAB[address] Specimen Anatomical Collection Method / Collection Time Recei annie Time (Source) Location / Volume Laterality Blood specimen STRUCTURE OF RIGHT Venipuncture / 04/01/2019 7:55 (specimen) UPPER LIMB / Unknown AM PATTERNATOR 12:23 PM PATTERNATOR Unknown Narrative [facility] - 04/01/2019 1:17 PM PATTERNATOR Fasting Glucose reference range is 70-99 mg/dL per [place] [employer] (ADA) maryan marrero. Alison Hollins LAB - BLOOD ORDERABLES Performing Organization Address City/State/ZIP Code Phon e [place] [id number] [place] [address] LABORATORY [facility] LABOR[facility] [address] [place] [address], [facility] documented in this encounter Visit Diagnoses Not on filedocumented in this encounter
--- OUTSIDE RECORDS SUMMARY | 2021-11-25 10:53 | XMS_ITS | Encounter Summary ---
:1945 Author Organization [facility] Address [address] [place] [address] Care Team Providers Name Role Phone Unavailable Primary Care Provider Unavailable Encounter Details Date Type Department Care Team Description 09/22/2021 [facility] O f Ernie Guzmán MD [address] [place] [address] [place], [place] [phone] (Wo rk) Social History Tobacco Use [...] 09/24/2021 Unless otherwise specified, test(s) performed at: [email or web address], [address] [place] [address], [place] [address] HOME DEMONSTRATION AGENT: Alhaji Noguera M.D., Ph.D For any questions, [...] APS SPECTRA [facility] (ABNORMAL) Spectrae Chemistry (09/22/2021) [facility] gist Method Time Signature BUN [...] 09/24/2021 Unless otherwise specified, test(s) performed at: [email or web address], [address] [place] [address], [place] [address] HOME DEMONSTRATION AGENT: Alhaji Noguera M.D., Ph.D For any questions, please call customer service at FREQUENCY:MONTHLY Resulting Agency Comment Specimen source: Serum Ernie Pompa MD LAB BLOOD ORDERABLES Performing Organization Address [facility] Phon e Number APS SPECTRA [facility] POST CHEMISTRY (09/22/2021) P athologist Signature BUN Post 12 6 - 19 APS SPECTRA Dialysis mg/dL [facility] Specimen (Source) Anatomical Collection Method Collection Time Re ceived Time Location / / Volume Laterality 09/22/2021 09/24/2021 4:03 PM CDT Narrative APS SPECTRA [facility] - 09/24/2021 Unless otherwise specified, test(s) performed at: [email or web address], [address] [place] [address] HOME DEMONSTRATION AGENT: Alhaji Noguera M.D., Ph.D For any questions, please call customer service at FREQUENCY:MONTHLY Resulting Agency Comment Specimen source: Plasma Ernie Pompa MD LAB BLOOD ORDERABLES Performing Organization Address [facility] Phon e Number APS [...] 09/24/2021 Unless otherwise specified, test(s) performed at: [email or web address], [address] [place] [address] HOME DEMONSTRATION AGENT: Alhaji Noguera M.D., Ph.D For any questions, [...] 09/24/2021 Unless otherwise specified, test(s) performed at: [email or web address], [address] [facility] [place] [address] HOME DEMONSTRATION AGENT: Alhaji Noguera M.D., Ph.D For any questions, please call customer service at FREQUENCY:MONTHLY Resulting Agency Comment Specimen source: Plasma Ernie Pompa MD LAB BLOOD ORDERABLES Performing Organization Address City/[facility] Phon e Number APS SPECTRA [facility] documented in this encounter Visit Diagnoses Not on filedocumented in this encounter
--- OUTSIDE RECORDS SUMMARY | 2021-11-25 10:53 | XMS_ITS | Encounter Summary ---
:1945 Author Organization [facility] Address [address] [place] [address] Care Team Providers Name Role Phone Unavailable Primary Care Provider Unavailable Encounter Details Date Type Department Care Team Description 11/10/2021 Orders Only [facility] O f Ernie Guzmán MD [address] [place] [address] [place], [place] [phone] (Wo rk) Social History Tobacco Use [...] 11/11/2021 Unless otherwise specified, test(s) performed at: [facility], [address] [place] [address], [place] [address] HAND PLEATER: Alhaji Noguera M.D., Ph.D For any questions, please call customer service at FREQUENCY:OTHER Resulting Agency Comment Specimen source: Blood Ernie Pompa MD LAB BLOOD ORDERABLES Performing Organization Address City/State/ZIP Code Phon e Number APS SPECTRA [facility] documented in this encounter Visit Diagnoses Not on filedocumented in this encounter
--- OUTSIDE RECORDS SUMMARY | 2021-11-25 10:53 | XMS_ITS | Encounter Summary ---
:1945 Author Organization [facility] Address [address] [place] [address] Care Team Providers Name Role Phone Unavailable Primary Care Provider Unavailable Encounter Details Date Type Department Care Team Description 09/01/2021 Orders [facility] O f Ernie Guzmán MD [address] [place] [address] [place], [place] [phone] (Wo rk) Social History Tobacco Use [...] 09/03/2021 Unless otherwise specified, test(s) performed at: [facility], [address] [place] [address] SEED POTATO CUTTER: Alec Payan M.D. For any questions, please call customer service at FREQUENCY:OTHER Resulting Agency Comment Specimen source: Serum Ernie Pompa MD LAB BLOOD ORDERABLES Performing Organization Address City/[facility] Phon e Number APS SPECTRA [...] 09/02/2021 Unless otherwise specified, test(s) performed at: [facility], [address] [place] [address] SEED POTATO CUTTER: Alec Payan M.D. For any questions, please call customer service at FREQUENCY:OTHER Resulting Agency Comment Specimen source: Blood Ernie Pompa MD LAB BLOOD ORDERABLES Performing Organization Address City/[facility] Phon e Number APS SPECTRA [facility] documented in this encounter Visit Diagnoses Not on filedocumented in this encounter
--- OUTSIDE RECORDS SUMMARY | 2021-11-25 10:53 | XMS_ITS | Encounter Summary ---
:1945 Author Organization [facility] Address [address] [place] [address] Care Team Providers Name Role Phone Unavailable Primary Care Provider Unavailable Encounter Details Date Type Department Care Team Description 09/15/2021 Orders [facility] O f Ernie Guzmán MD [phone] [place] [address] [place], [place] [phone] (Wo rk) Social History Tobacco Use [...] 09/16/2021 Unless otherwise specified, test(s) performed at: [facility], [address] [place] [address] PHOTO EDITOR: Alec Payan M.D. For any questions, please call customer service at FREQUENCY:OTHER Resulting Agency Comment Specimen source: Blood Ernie Pompa MD LAB BLOOD ORDERABLES Performing Organization Address City/State/ZIP Code Phon e Number APS SPECTRA [facility] documented in this encounter Visit Diagnoses Not on filedocumented in this encounter
--- OUTSIDE RECORDS SUMMARY | 2021-11-25 10:53 | XMS_ITS | Encounter Summary ---
:1945 Author Organization [facility] Address [address] [place] [address] Care Team Providers Name Role Phone Unavailable Primary Care Provider Unavailable Encounter Details Date Type Department Care Team Description 08/30/2021 Orders Only [facility] O f Ernie Guzmán MD [address] [place] [address] [place], [place] [phone] (Wo rk) Social History Tobacco Use [...] 08/31/2021 Unless otherwise specified, test(s) performed at: [facility], [address] [place] [address] STEAMER BLOCKER: Alec Payan M.D. For any questions, please call customer service at FREQUENCY:OTHER Resulting Agency Comment Specimen source: Serum Ernie Pompa MD LAB BLOOD ORDERABLES Performing Organization Address City/[facility] Phon e Number APS SPECTRA [facility] (ABNORMAL) Spectrae Chemistry (08/30/2021) athologist Signature BUN 55 (H) 6 - 19 APS SPECTRA mg/dL [facility] Specimen (Source) Anatomical Collection Method Collection Time Re ceived Time Location / / Volume Laterality 08/30/2021 08/31/2021 5:11 PM CDT Narrative APS SPECTRA [facility] - 08/31/2021 Unless otherwise specified, test(s) performed at: [facility], [address] [place] [address] STEAMER BLOCKER: Alec Payan M.D. For any questions, please call customer service at FREQUENCY:OTHER Resulting Agency Comment Specimen source: Serum Ernie Pompa MD LAB BLOOD ORDERABLES Performing Organization Address City/[facility] Phon e Number APS SPECTRA [facility] POST CHEMISTRY (08/30/2021) athologist Signature BUN Post 16 6 - 19 APS SPECTRA Dialysis mg/dL [facility] Specimen (Source) Anatomical Collection Method Collection Time Re ceived Time Location / / Volume Laterality 08/30/2021 08/31/2021 1:52 PM CDT Narrative APS SPECTRA [facility] - 08/31/2021 Unless otherwise specified, test(s) performed at: [facility], [address] [place] [address] STEAMER BLOCKER: Alec Payan M.D. For any questions, please call customer service at FREQUENCY:OTHER Resulting Agency Comment Specimen source: Plasma Ernie Pompa MD LAB BLOOD ORDERABLES Performing Organization Address City/State/ZIP Code Phon e Number APS SPECTRA [facility] documented in this encounter Visit Diagnoses Not on filedocumented in this encounter
--- OUTSIDE RECORDS SUMMARY | 2021-11-25 10:53 | XMS_ITS | Clinical Summary ---
:1945 Author Organization [facility] Address [address] [facility] [facility] [address] [place] [address] Phone Care Team Providers Name Role Phone [...] Mccoy MD 08/25/2021 Treatment Ernie Pompa MD from Last 3 [...] Results (ABNORMAL) HEMATOLOGY (11/17/2021)Only the most recent of13 resultswithin the time [...] 11/18/2021 Unless otherwise specified, test(s) performed at: [facility], [address] [place] [address], [place] [address] VIDEO PHOTOGRAPHER: Alhaji Noguera M.D., Ph.D For any questions, please call customer service at FREQUENCY:OTHER Resulting Agency Comment Specimen source: Blood Ernie Pompa MD LAB BLOOD ORDERABLES Performing Organization Address City/[facility] Phon e Number APS SPECTRA [facility] (ABNORMAL) Spectrae Chemistry (10/27/2021)Only the most recent of9 resultswithin the time period is included. P athologist Signature PTH 203 (H) 16 - 80 APS SPECTRA pg/mL [facility] Specimen (Source) Anatomical Collection Method Collection Time Re ceived Time Location / / Volume Laterality 10/27/2021 10/28/2021 7:55 AM CDT Narrative APS SPECTRA [facility] - 10/28/2021 Unless otherwise specified, test(s) performed at: [facility], [address] [place] [address], [place] [address] VIDEO PHOTOGRAPHER: Alhaji Noguera M.D., Ph.D For any questions, please call customer service at FREQUENCY:OTHER Resulting Agency Comment Specimen source: Plasma Ernie Pompa MD LAB BLOOD ORDERABLES Performing Organization Address [facility] Phon e Number APS SPECTRA [facility] HD KINETICS (10/20/2021)Only the most recent of3 resultswithin the [...] Organization Address City/[facility] Code Phon e Number APS SPECTRA [facility] POST CHEMISTRY (10/20/2021)Only the most recent of3 resultswithin the time period is included. [facility] BUN Post 11 6 - 19 APS SPECTRA Dialysis mg/dL [facility] Specimen (Source) Anatomical Collection Method Collection Time Re ceived Time Location / / Volume Laterality 10/20/2021 10/21/2021 3:38 AM CDT Narrative APS SPECTRA [facility] - 10/21/2021 Unless otherwise specified, test(s) performed at: [facility], [address] [place] [address], [place] [address] VIDEO PHOTOGRAPHER: Alhaji Noguera M.D., Ph.D For any questions, please call customer service at FREQUENCY:MONTHLY Resulting Agency Comment Specimen source: Plasma Ernie Pompa MD LAB BLOOD ORDERABLES Performing Organization Address [facility] Phon e Number APS SPECTRA [facility] IMMUNO CHEMISTRY (10/20/2021)Only the most recent of2 resultswithin the time period is included. [facility] Hep B Surface Negative Negative APS SPECTRA Ag [facility] Specimen (Source) Anatomical Collection Method Collection Time Re ceived Time Location / / Volume Laterality 10/20/2021 10/21/2021 3:50 AM CDT Narrative APS SPECTRA [facility] - 10/21/2021 Unless otherwise specified, test(s) performed at: [facility], [address] [place] [address], [place] [address] VIDEO PHOTOGRAPHER: Alhaji Noguera M.D., Ph.D For any questions, please call customer service at FREQUENCY:MONTHLY Resulting Agency Comment Specimen source: Plasma Ernie Pompa MD LAB BLOOD ORDERABLES Performing Organization Address City/[facility] Phon e Number APS SPECTRA [facility] Spectra [facility] Lab Results (10/20/2021)Only the most recent of3 resultswithin the time period is included. [facility] eNPCR 0.70 [facility] spKt/V Gotch 1.55 [facility] PCR 57.66 [facility] eKt/V Gotch 1.35 [facility] eKdrt/V 1.35 [facility] nPCR_HD 0.75 [facility] eKt/V 1.29 [facility] ([place]) spKt/V 1.48 [facility] (Daugirdas II) Specimen (Source) Anatomical Location Collection Method / Collectio n Time Received Time / Laterality Volume 10/20/2021 10/20/2021 [facility] Ordering Provider LAB BLOOD ORDERABLES Performing Organization Address City/State/ZIP Code Phon e Number [facility] SPECIAL CHEMISTRY [...] Type / Group [place] [facility] [id number] 2018-Presen [phone] [address] [address] MEDICARE ADV ([id number]) t [address] [place] [address]
--- OUTSIDE RECORDS SUMMARY | 2021-11-25 10:53 | XMS_ITS | Encounter Summary ---
:1945 Author Organization [facility] Address [address] [place] [address] Care Team Providers Name Role Phone Unavailable Primary Care Provider Unavailable Encounter Details Date Type Department Care Team Description 10/27/2021 Orders Only [facility] O f Ernie Guzmán MD [address] [place] [address] [place], [place] [phone] (Wo rk) Social History Tobacco Use [...] 10/28/2021 Unless otherwise specified, test(s) performed at: [facility], [address] [place] [address], [place] [address] MARINE FISHERIES TECHNICIAN: Alhaji Noguera M.D., Ph.D For any questions, [...] 10/28/2021 Unless otherwise specified, test(s) performed at: [facility], [address] [place] [address] [facility] [place] [address] MARINE FISHERIES TECHNICIAN: Alhaji Noguera M.D., Ph.D For any questions, please call customer service at FREQUENCY:OTHER Resulting Agency Comment Specimen source: Blood Ernie Pompa MD LAB BLOOD ORDERABLES Performing Organization Address City/[facility] Phon e Number APS SPECTRA [facility] documented in this encounter Visit Diagnoses Not on filedocumented in this encounter
--- OUTSIDE RECORDS SUMMARY | 2021-11-25 10:53 | XMS_ITS | Encounter Summary ---
:1945 Author Organization [facility] Address [address] [place] [address] Care Team Providers Name Role Phone Unavailable Primary Care Provider Unavailable Encounter Details Date Type Department Care Team Description 10/06/2021 Orders Only [facility] O f Ernie Guzmán MD [address] [place] [address] [place], [place] [phone] (Wo rk) Social History Tobacco Use [...] 10/07/2021 Unless otherwise specified, test(s) performed at: [facility], [address] [place] [address], [place] [address] WAGE AND SALARY SPECIALIST: Alhaji Noguera M.D., Ph.D For any questions, please call customer service at FREQUENCY:OTHER Resulting Agency Comment Specimen source: Blood Ernie Pompa MD LAB BLOOD ORDERABLES Performing Organization Address City/State/ZIP Code Phon e Number APS SPECTRA [facility] documented in this encounter Visit Diagnoses Not on filedocumented in this encounter
--- OUTSIDE RECORDS SUMMARY | 2021-11-25 10:53 | XMS_ITS | Encounter Summary ---
:1945 Author Organization [facility] Address [address] [place] [address] Care Team Providers Name Role Phone Unavailable Primary Care Provider Unavailable Encounter Details Date Type Department Care Team Description 09/29/2021 Treatment [facility] O f Ernie Guzmán MD [address] [place] [address] [place], [place] [phone] [phone] (Wo rk) Social History Tobacco Use Types Packs/Day Years Used Date Smoking Tobacco: Unknown Comments: Smoking History Info:Patient n ot screened Sex Assigned at Date Recorded Not on file documented as of this encounter Miscellaneous Notes Dialysis Note - Ernie Pompa MD - 09/29/2021 10:30 AM CDT Date: Sep 29, 2021 Patient Name: Shaun Ocampo : 1945 Chart #: [id number] Sex: M This patient was personally seen [...] AM ) BP (sit): 109/45 AP(-) / OFFC SPEC: 168/138 Pulse: 57 Chairside data as of [...] 08/27/2021 05/28/2021 04/23/2021 Access Flow [id number] Treatment Medication Orders Medication Sig Start Date [...] mcg IVP Every 2 weeks 09/29/2021 09/28/2022 AIRPLANE COVER MAKER: Ernie Pompa MD LOCATION: [phone] SCHEDULE: -- 2nd Shift EDW: kg. DIALYZER: [...] and do periodic extra UF treatments at [facility] rather than risk more hypotension post-tx with use of midodrine and additional UF during treatments. He has fistulagram last week, went well and access working well since. 08/11: Continues to have problems with fluid gains. we have spent considerable time discussing this, he is trying to work on this but can't seem to avoid large gains. Will go to [facility] for UF tomorrow, needs extra treatments every 2 weeks it looks like to maintain EDW. He does get SOB when >5K over dry weight in particular. 07/21/21: Continues to struggle with fluid gains, extra UF run scheduled tomorrow at [facility]. He does feel more SOB when fluid overloaded. No new symptoms otherwise, he is enjoying the nicer weather which allows him to do more activity and not sit at home and drink fluids which he thinks will help with IDWG's. 07/14/21: Continues to have high gains, unfortunately [facility] without staff to open tomorrow for extra [...] Fluid gains continue to be high, [facility] not open on this week, says he will do his best withlimiting salt/fluid. HE does feel SOB with exertion with extra fluid on, no orthopnea. 05/26/21: Has SOB when >5 Kg over dry weight, extra run last week at [facility] helped. Trying his best with fluid restriction. [...] run and we discussed going to [facility] tomorrow for UF only run and he [...] today, may need extra run at [facility] if can't get down over next week. 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 06/10: Doing well overall, no new complaints, [...] Went to Urgent care -> ER in [place] yesterday,CT with R hydro but no [...] He had infiltration last week, dialyzed at [facility] on Sat and went [...] prescription. Vascular Access Assessment Type of access: [id number] Surgeon - Lary GARDNER 08/2021: fistulagram at [facility] with angioplasty of stenosis completed Anemia Assessment [...] at goal. Intact PTH is above goal. Medical Office Representative will adjust binders and vitamin D [...] remain high Extra UF run tomorrow at [facility] Transplant Status: Patient is not a candidate. Weight, co-morbidities, age Resuscitation Status Stable dialysis, no changes to prescription Extra UF run at [facility] tomorrow Ongoing attempts at lower IDWG's Discussed [...]
--- OUTSIDE RECORDS SUMMARY | 2021-11-25 10:53 | XMS_ITS | Encounter Summary ---
:1945 Author Organization [facility] Address [address] [place] [address] Care Team Providers Name Role Phone Unavailable Primary Care Provider Unavailable Encounter Details Date Type Department Care Team Description 07/28/2021 Orders Only [facility] O f Ernie Guzmán MD [address] [place] [address] [place], [place] [phone] (Wo rk) Social History Tobacco Use [...] in this encounter Results (ABNORMAL) HEMATOLOGY (07/28/2021) [facility] gist Method Time Signature Hemoglobin 9.9 [...] 07/29/2021 Unless otherwise specified, test(s) performed at: [facility], [address] [place] [address] LINOTYPE MACHINIST: Alec Payan M.D. For any questions, please call customer service at FREQUENCY:OTHER Resulting Agency Comment Specimen source: Blood Ernie Pompa MD LAB BLOOD ORDERABLES Performing Organization Address City/State/ZIP Code Phon e Number APS SPECTRA [facility] documented in this encounter Visit Diagnoses Not on filedocumented in this encounter
--- OUTSIDE RECORDS SUMMARY | 2021-11-25 10:53 | XMS_ITS | Encounter Summary ---
:1945 Author Organization [facility] Address [address] [place] [address] Care Team Providers Name Role Phone Unavailable Primary Care Provider Unavailable Encounter Details Date Type Department Care Team Description 11/10/2021 Treatment [facility] f Ernie Guzmán MD [address] [place] [address] [place], [place] [phone] (Wo rk) Social History Tobacco Use Types Packs/Day Years Used Date Smoking Tobacco: Unknown Comments: Smoking History Info:Patient n ot screened Sex Assigned at Date Recorded Not on file documented as of this encounter Miscellaneous Notes Dialysis Note - Ernie Pompa MD - 11/10/2021 11:27 AM CDT Date: Nov 10, 2021 Patient Name: Shaun Ocampo : 1945 Chart #: [id number] Sex: M This patient was personally seen [...] AM ) BP (sit): 111/39 AP(-) / PIN INSERTER REGULATOR: 195/161 Pulse: 62 Chairside data as of [...] Values 08/27/2021 05/28/2021 04/23/2021 Access Flow [id number] Treatment Medication Orders Medication Sig Start Date [...] mcg IVP Every 2 weeks 10/27/2021 10/26/2022 WORKER'S COMPENSATION CLAIMS EXAMINER: Ernie Pompa MD LOCATION: [phone] SCHEDULE: -- 2nd Shift ACCESS: EDW: kg. [...] after extra UF run last week at [facility]. BP adequate, challengingEDW today. His breathing is improved. Also went to wound care clinic at [facility] and they dressedwounds and he has follow-up [...] and do periodic extra UF treatments at [facility] rather than risk more hypotension post-tx with use of midodrine and additional UF during treatments. He has fistulagram last week, went well and access working well since. 08/11: Continues to have problems with fluid gains. we have spent considerable time discussing this, he is trying to work on this but can't seem to avoid large gains. Will go to [facility] for UF tomorrow, needs extra treatments every 2 weeks it looks like to maintain EDW. He does get SOB when >5K over dry weight in particular. 07/21/21: Continues to struggle with fluid gains, extra UF run scheduled tomorrow at [facility]. He does feel more SOB when fluid overloaded. No new symptoms otherwise, he is enjoying the nicer weather which allows him to do more activity and not sit at home and drink fluids which he thinks will help with IDWG's. 07/14/21: Continues to have high gains, unfortunately [facility] without staff to open tomorrow for extra [...] improving. Fluid gains continue to be high, [facility] not open on this week, says he will do his best withlimiting salt/fluid. HE does feel SOB with exertion with extra fluid on, no orthopnea. 05/26/21: Has SOB when >5 Kg over dry weight, extra run last week at [facility] helped. Trying his best with fluid restriction. [...] well. He had extra run prior to [facility] and ran W[facility] that week an [...] extra run and we discussed going to [facility] tomorrow for UF only run and he [...] again today, may need extra run at [facility] if can't get down over next week. 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
--- OUTSIDE RECORDS SUMMARY | 2021-11-25 10:53 | XMS_ITS | Encounter Summary ---
:1945 Author Organization [facility] Address [address] [place] [address] [place] [address] Care Team Providers Name Role Phone Unavailable Primary Care Provider Unavailable Encounter Details Date Type Department Care Team Description 08/04/2021 Orders Only [facility] f Ernie Guzmán MD [phone] [place] [address] [place], [place] [phone] (Wo rk) Social History Tobacco Use [...] 08/06/2021 Unless otherwise specified, test(s) performed at: [facility], [address] [place] [address] CLINICAL NEUROPSYCHOLOGIST: Alec Payan M.D. For any questions, please [...] 2021 Unless otherwise specified, test(s) performed at: [facility], [address] [place], [place] [id number] CLINICAL NEUROPSYCHOLOGIST: Alec Payan M.D. For any questions, please call customer service at FREQUENCY:OTHER Resulting Agency Comment Specimen source: Plasma Ernie Pompa MD LAB BLOOD ORDERABLES Performing Organization Address [facility] Phon e Number [...] 2021 Unless otherwise specified, test(s) performed at: [facility], [address] [place] [address] CLINICAL NEUROPSYCHOLOGIST: Alec Payan M.D. For any questions, please call customer service at FREQUENCY:OTHER Resulting Agency Comment Specimen source: Blood Ernie Pompa MD LAB BLOOD ORDERABLES Performing Organization Address City/[facility] Phon e Number APS SPECTRA [facility] documented in this encounter Visit Diagnoses Not on filedocumented in this encounter
--- OUTSIDE RECORDS SUMMARY | 2021-11-25 10:53 | XMS_ITS | Encounter Summary ---
:1945 Author Organization [facility] Address [address] [place] [address] Care Team Providers Name Role Phone Unavailable Primary Care Provider Unavailable Encounter Details Date Type Department Care Team Description 08/25/2021 Treatment [facility] f Ernie Guzmán MD [address] [place] [address] [place], [place] [phone] (Wo rk) Social History Tobacco Use Types Packs/Day Years Used Date Smoking Tobacco: Unknown Comments: Smoking History Info:Patient n ot screened Sex Assigned at Date Recorded Not on file documented as of this encounter Miscellaneous Notes Dialysis Note - Ernie Pompa MD - 08/25/2021 10:16 AM CDT Date: Aug 25, 2021 Patient Name: Shaun Ocampo : 1945 Chart #: [id number] Sex: M This patient was personally seen [...] AM ) BP (sit): 118/41 AP(-) / MEDICAL ACCOUNTS RECEIVABLE SPECIALIST: 171/153 Pulse: 69 Chairside data as of [...] mcg IVP Every 2 weeks 08/25/2021 08/24/2022 PROCESSING INSPECTOR: Ernie Pompa MD LOCATION: [phone] SCHEDULE: -- 2nd Shift EDW: kg. DIALYZER: [...] and do periodic extra UF treatments at [place] rather than risk more hypotension post-tx with use of midodrine and additional UF during treatments. He has fistulagram last week, went well and access working well since. 08/11: Continues to have problems with fluid gains. we have spent considerable time discussing this, he is trying to work on this but can't seem to avoid large gains. Will go to [place] for UF tomorrow, needs extra treatments every 2 weeks it looks like to maintain EDW. He does get SOB when >5K over dry weight in particular. 07/21/21: Continues to struggle with fluid gains, extra UF run scheduled tomorrow at [place]. He does feel more SOB when fluid overloaded. No new symptoms otherwise, he is enjoying the nicer weather which allows him to do more activity and not sit at home and drink fluids which he thinks will help with IDWG's. 07/14/21: Continues to have high gains, unfortunately [place] without staff to open tomorrow for extra [...] improving. Fluid gains continue to be high, [place] not open on this week, says he will do his best withlimiting salt/fluid. HE does feel SOB with exertion with extra fluid on, no orthopnea. 05/26/21: Has SOB when >5 Kg over dry weight, extra run last week at [place] helped. Trying his best with fluid restriction. [...] extra run and we discussed going to [place] tomorrow for UF only run and he [...] again today, may need extra run at [place] if can't get down over next week. 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 06/10: Doing well overall, no new complaints, [...] Went to Urgent care -> ER in [place] yesterday,CT with R hydro but no obstructive [...] prescription. Vascular Access Assessment Type of access: [id number]/2019 Surgeon - Lary GARDNER 08/2021: fistulagram at [facility] with angioplasty of stenosis completed Anemia Assessment [...] at goal. Intact PTH is above goal. Apartment Coordinator will adjust binders and vitamin D [...] maintain euvolemia, extra UF run planned at [place] when they areopen either tomorrow or next week on Transplant Status: Patient is not a candidate. Weight, co-morbidities, age Resuscitation Status Stable dialysis, no changes to prescription Extra UF run at [place] Continue work on lower IDWG's Titrate Vit [...]
--- OUTSIDE RECORDS SUMMARY | 2021-11-25 10:53 | XMS_ITS | Encounter Summary ---
:1945 Author Organization [facility] Address [address] [place] [address] Care Team Providers Name Role Phone Unavailable Primary Care Provider Unavailable Encounter Details Date Type Department Care Team Description 09/13/2021 Orders Only [facility] f Ernie Guzmán MD [phone] [place] [address] [place], [place] [phone] (Wo rk) Social History Tobacco Use [...] 09/14/2021 Unless otherwise specified, test(s) performed at: [facility], [address] [place] [address] CLIENT CARE REPRESENTATIVE: Alec Payan M.D. For any questions, [...] 09/14/2021 Unless otherwise specified, test(s) performed at: [facility], [address] [place] [address] CLIENT CARE REPRESENTATIVE: Alec Payan M.D. For any questions, please call customer service at FREQUENCY:OTHER Resulting Agency Comment Specimen source: Plasma Ernie Pompa MD LAB BLOOD ORDERABLES Performing Organization Address City/[facility]/ZIP Code Phon e Number APS SPECTRA [facility] documented in this encounter Visit Diagnoses Not on filedocumented in this encounter
--- OUTSIDE RECORDS SUMMARY | 2021-11-25 10:53 | XMS_ITS | Encounter Summary ---
:1945 Author Organization [facility] Address [address] [place] [address] Care Team Providers Name Role Phone Unavailable Primary Care Provider Unavailable Encounter Details Date Type Department Care Team Description 08/20/2021 Orders [facility] f Ernie Guzmán MD [phone] [place] [address] [place], [place] [phone] (Wo rk) Social History Tobacco Use [...] 08/21/2021 Unless otherwise specified, test(s) performed at: [facility], [address] [place] [address] SEMICONDUCTOR MANUFACTURING TECHNICIAN: Alec Payan M.D. For any questions, please call customer service at FREQUENCY:OTHER Resulting Agency Comment Specimen source: Plasma Ernie Pompa MD LAB BLOOD ORDERABLES Performing Organization Address City/State/ZIP Code Phon e Number APS SPECTRA [facility] documented in this encounter Visit Diagnoses Not on filedocumented in this encounter
--- OUTSIDE RECORDS SUMMARY | 2021-11-25 10:53 | XMS_ITS | Encounter Summary ---
:1945 Author Organization [facility] Address [address] [place] [address] Care Team Providers Name Role Phone Unavailable Primary Care Provider Unavailable Encounter Details Date Type Department Care Team Description 08/18/2021 Orders [facility] f Ernie Guzmán MD [address] [place] [address] [place], [place] [phone] (Wo rk) Social History Tobacco Use [...] Provider LAB BLOOD ORDERABLES Performing Organization Address City/[facility]/ZIP Code Phon e Number KAMERON HD KINETICS (08/18/2021) P athologist Signature % Urea 67 65 - 80 % APS SPECTRA Reduction [facility] Specimen (Source) Anatomical Collection Method Collection Time Re ceived Time Location / / Volume Laterality 08/18/2021 08/20/2021 12:5 8 AM CDT Resulting Agency Comment Specimen source: Plasma Ernie Pompa MD LAB BLOOD ORDERABLES Performing Organization Address [facility]/ZIP Code Phon e Number APS SPECTRA [facility] POST CHEMISTRY (08/18/2021) P athologist Signature BUN Post 17 6 - 19 APS SPECTRA Dialysis mg/dL [facility] Specimen (Source) Anatomical Collection Method Collection Time Re ceived Time Location / / Volume Laterality 08/18/2021 08/20/2021 12:5 8 AM CDT Narrative APS SPECTRA [facility] - 08/20/2021 Unless otherwise specified, test(s) performed at: [facility], [address] [place] [address] CAFE OPERATOR: Alec Payan M.D. For any questions, [...] 08/20/2021 Unless otherwise specified, test(s) performed at: [facility], [address] [place] [address] CAFE OPERATOR: Alec Payan M.D. For any questions, please call customer service at FREQUENCY:MONTHLY Resulting Agency Comment Specimen source: Blood Ernie Pompa MD LAB BLOOD ORDERABLES Performing Organization Address City/[facility] Phon e Number APS SPECTRA [facility] (ABNORMAL) Spectrae Chemistry (08/18/2021) P athologist Signature PTH 766 (H) 16 - 80 APS SPECTRA pg/mL [facility] Specimen (Source) Anatomical Collection Method Collection Time Re ceived Time Location / / Volume Laterality 08/18/2021 08/19/2021 8:21 PM CDT Narrative APS SPECTRA [facility] - 08/20/2021 Unless otherwise specified, test(s) performed at: [facility], [address] [place] [address] CAFE OPERATOR: Alec Payan M.D. For any questions, please call customer service at FREQUENCY:MONTHLY Resulting Agency Comment Specimen source: Plasma Ernie Pompa MD LAB BLOOD ORDERABLES Performing Organization Address City/[facility] Phon e Number APS SPECTRA [facility] [...] 08/20/2021 Unless otherwise specified, test(s) performed at: [facility], [address] [place] [address] CAFE OPERATOR: Alec Payan M.D. For any questions, please call customer service at FREQUENCY:MONTHLY Resulting Agency Comment Specimen source: Serum Ernie Pomap MD LAB BLOOD ORDERABLES Performing [...] 08/19/2021 Unless otherwise specified, test(s) performed at: [facility], [address] [place] [address] CAFE OPERATOR: Alec Payan M.D. For any questions, please call customer service at FREQUENCY:MONTHLY Resulting Agency Comment Specimen source: Serum Ernie Pompa MD LAB BLOOD ORDERABLES Performing Organization Address City/State/ZIP Code Phon e Number APS SPECTRA [facility] documented in this encounter Visit Diagnoses Not on filedocumented in this encounter
--- OUTSIDE RECORDS SUMMARY | 2021-11-25 10:54 | XMS_ITS | Encounter Summary ---
:1945 Author Organization [facility] Address [address] [place] [address] Care Team Providers Name Role Phone Unavailable Primary Care Provider Unavailable Encounter Details Date Type Department Care Team Description 05/17/2021 Orders [facility] O f Ernie Guzmán MD [address] [place] [address] [place], [place] [phone] (Wo rk) Social History Tobacco Use [...] / Volume Laterality 05/17/2021 05/18/2021 1:48 PM DIRECTOR NURSING SERVICE Narrative APS SPECTRA [facility] - 05/18/2021 Unless otherwise specified, test(s) performed at: [facility], [address] [place] [address] CONVEYOR FEEDER OFFBEARER: Alec Payan M.D. For any questions, please [...] Volume Laterality 05/17/2021 05/18/2021 11:1 2 AM DIRECTOR NURSING SERVICE Narrative APS SPECTRA [facility] - 05/18/2021 Unless otherwise specified, test(s) performed at: [facility], [address] [place] [address] CONVEYOR FEEDER OFFBEARER: Alec Payan M.D. For any questions, please call customer service at FREQUENCY:OTHER Resulting Agency Comment Specimen source: Serum Ernie Pompa MD LAB BLOOD ORDERABLES Performing Organization Address City/[facility]/ZIP Code Phon e Number APS SPECTRA [facility] documented in this encounter Visit Diagnoses Not on filedocumented in this encounter
--- OUTSIDE RECORDS SUMMARY | 2021-11-25 10:54 | XMS_ITS | Encounter Summary ---
:1945 Author Organization [facility] Address [address] [place] [address] Care Team Providers Name Role Phone Unavailable Primary Care Provider Unavailable Encounter Details Date Type Department Care Team Description 07/14/2021 Orders [facility] O f Ernie Guzmán MD [address] [place] [address] [place], [place] [phone] (Wo rk) Social History Tobacco Use [...] 07/15/2021 Unless otherwise specified, test(s) performed at: [facility], [address] [place] [address] VESSEL SCRAPPER: Alec Payan M.D. For any questions, please call customer service at FREQUENCY:OTHER Resulting Agency Comment Specimen source: Blood Ernie Pompa MD LAB BLOOD ORDERABLES Performing Organization Address City/State/ZIP Code Phon e Number APS SPECTRA [facility] documented in this encounter Visit Diagnoses Not on filedocumented in this encounter
--- OUTSIDE RECORDS SUMMARY | 2021-11-25 10:54 | XMS_ITS | Encounter Summary ---
:1945 Author Organization [facility] Address [address] [place] [address] Care Team Providers Name Role Phone Unavailable Primary Care Provider Unavailable Encounter Details Date Type Department Care Team Description 06/30/2021 Orders [facility] O f Ernie Guzmán MD [address] [place] [address] [place], [place] [phone] (Wo rk) Social History Tobacco Use [...] 07/01/2021 Unless otherwise specified, test(s) performed at: [facility], [address] [place] [address] SVP INNOVATION PARTNERSHIPS: Alec Payan M.D. For any questions, please call customer service at FREQUENCY:OTHER Resulting Agency Comment Specimen source: Blood Ernie Pompa MD LAB BLOOD ORDERABLES Performing Organization Address City/State/ZIP Code Phon e Number APS SPECTRA [facility] documented in this encounter Visit Diagnoses Not on filedocumented in this encounter
--- OUTSIDE RECORDS SUMMARY | 2021-11-25 10:54 | XMS_ITS | Encounter Summary ---
:1945 Author Organization [facility] Address [address] [place] [address] Care Team Providers Name Role Phone Unavailable Primary Care Provider Unavailable Encounter Details Date Type Department Care Team Description 05/19/2021 Orders [facility] O f Ernie Guzmán MD [address] [place] [address] [place], [place] [phone] (Wo rk) Social History Tobacco Use [...] BLOOD ORDERABLES Performing Organization Address [facility] Phon e Number KAMERON IMMUNO CHEMISTRY (05/19/2021) P athologist Signature Hep B Surface Negative Negative APS SPECTRA Ag [facility] Specimen (Source) Anatomical Collection Method Collection Time Re ceived Time Location / / Volume Laterality 05/19/2021 05/20/2021 3:10 PM CAUSE ANALYST Narrative APS SPECTRA [facility] - 05/20/2021 Unless otherwise specified, test(s) performed at: [facility], [address] [place], [place] [address] PORT CRANE OPERATOR: Alec Payan M.D. For any questions, please call customer service at FREQUENCY:MONTHLY Resulting Agency Comment Specimen source: Serum Ernie Pompa MD LAB BLOOD ORDERABLES Performing Organization Address [facility] Phon e Number APS SPECTRA [facility] HD KINETICS (05/19/2021) P athologist Signature % Urea 69 65 - 80 % APS SPECTRA Reduction [facility] Specimen (Source) Anatomical Collection Method Collection Time Re ceived Time Location / / Volume Laterality 05/19/2021 05/20/2021 3:12 PM CAUSE ANALYST Narrative APS SPECTRA [facility] - 05/20/2021 Unless otherwise specified, test(s) performed at: [facility], [address] [place] [address] PORT CRANE OPERATOR: Alec Payan M.D. For any questions, please call customer service at FREQUENCY:MONTHLY Resulting Agency Comment Specimen source: Serum Ernie Pompa MD LAB BLOOD ORDERABLES Performing Organization Address [facility] Phon e Number APS SPECTRA [...] / Volume Laterality 05/19/2021 05/20/2021 3:10 PM CAUSE ANALYST Narrative APS SPECTRA [facility] - 05/20/2021 Unless otherwise specified, test(s) performed at: [facility], [address] [place] [address] PORT CRANE OPERATOR: Alec Payan M.D. For any [...] / Volume Laterality 05/19/2021 05/20/2021 2:08 PM CAUSE ANALYST Narrative APS SPECTRA [facility] - 05/20/2021 Unless otherwise specified, test(s) performed at: [facility], [address] [place] [address] PORT CRANE OPERATOR: Alec Payan M.D. For any [...] Volume Laterality 05/19/2021 05/20/2021 12:5 8 PM CAUSE ANALYST Narrative APS SPECTRA [facility] - 05/20/2021 Unless otherwise specified, test(s) performed at: [facility], [address] [place] [address] [place] OPERATOR: Alec Payan M.D. For any questions, please call customer service at FREQUENCY:MONTHLY Resulting Agency Comment Specimen source: Blood Ernie Pompa MD LAB BLOOD ORDERABLES Performing Organization Address City/State/ZIP Code Phon e Number APS SPECTRA [facility] documented in this encounter Visit Diagnoses Not on filedocumented in this encounter
--- OUTSIDE RECORDS SUMMARY | 2021-11-25 10:54 | XMS_ITS | Encounter Summary ---
:1945 Author Organization [facility] Address [address] [place] [address] Care Team Providers Name Role Phone Unavailable Primary Care Provider Unavailable Encounter Details Date Type Department Care Team Description 06/30/2021 Treatment [facility] Ernie Guzmán MD [address] [place] [address] [place], [place] [phone] [phone] (Wo rk) Social History Tobacco Use Types Packs/Day Years Used Date Smoking Tobacco: Unknown Comments: Smoking History Info:Patient n ot screened Sex Assigned at Date Recorded Not on file documented as of this encounter Miscellaneous Notes Dialysis Note - Ernie Pompa MD - 06/30/2021 11:03 AM CDT Date: Jun 30, 2021 Patient Name: Shaun Ocampo : 1945 Chart #: [id number] Sex: M This patient was personally seen [...] AM ) BP (sit): 100/42 AP(-) / SPRAYER LEATHER: 167/131 Pulse: 78 Chairside data as of [...] 05/28/2021 04/23/2021 04/02/2021 Access Flow [id number] Treatment Medication Orders Medication Sig Start Date [...] mcg IVP Every 4 weeks 06/23/2021 06/22/2022 AIR EXPORT LOGISTICS MANAGER: Ernie Pompa MD LOCATION: [phone] SCHEDULE: -- 2nd Shift EDW: kg. DIALYZER: [...] improving. Fluid gains continue to be high, [place] not open on this week, says he will do his best withlimiting salt/fluid. HE does feel SOB with exertion with extra fluid on, no orthopnea. 05/26/21: Has SOB when >5 Kg over dry weight, extra run last week at [facility] helped. Trying his best with fluid restriction. [...] extra run and we discussed going to [facility] tomorrow for UF only run and he [...] again today, may need extra run at [facility] if can't get down over next week. 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 06/10: Doing well overall, no new complaints, [...] Went to Urgent care -> ER in [place] yesterday,CT with R hydro but no [...] had infiltration last week, dialyzed at [facility] on Sat and went well, access ok [...] prescription. Vascular Access Assessment Type of access: [id number]/[email or web address] Surgeon Annita KUMARW Access working well Anemia [...] at goal. Intact PTH is above goal. Straightening Press Operator Helper will adjust binders and vitamin D [...] to prescription Extra UF run tomorrow at [facility] Continue work on lower IDWG's Ernie Pompa MD [ Signed And locked electronically On 06/30/2021 at 11:05:31 AM ] Transcribed: Ernie Pompa ( 06/30/2021 ) documented in this encounter Plan of Treatment Not on filedocumented as of this encounter Visit Diagnoses Not on filedocumented in this encounter
--- OUTSIDE RECORDS SUMMARY | 2021-11-25 10:54 | XMS_ITS | Encounter Summary ---
:1945 Author Organization [facility] Address [address] [place] [address] Care Team Providers Name Role Phone Unavailable Primary Care Provider Unavailable Encounter Details Date Type Department Care Team Description 07/14/2021 Treatment [facility] Ernie Guzmán MD [address] [place] [address] [place], [place] [phone] (Wo rk) Social History Tobacco Use Types Packs/Day Years Used Date Smoking Tobacco: Unknown Comments: Smoking History Info:Patient n ot screened Sex Assigned at Date Recorded Not on file documented as of this encounter Miscellaneous Notes Dialysis Note - Ernie Pompa MD - 07/14/2021 9:22 AM CDT Date: Jul 14, 2021 Patient Name: Shaun Ocampo : 1945 Chart #: [id number] Sex: M This patient was personally seen [...] AM ) BP (sit): 99/43 AP(-) / PHYSICAL SECURITY MANAGER: 152/133 Pulse: 67 Chairside data as of [...] mcg IVP Every 4 weeks 06/23/2021 06/22/2022 INFORMATION ASSURANCE: Ernie Pompa MD LOCATION: [place] [phone] SCHEDULE: -- 2nd Shift ACCESS: EDW: kg. DIALYZER: HD DURATION: NEEDLE SIZE: ANTICOAG: BATH: QB: ml/min QD: ml/min Subjective Tolerating dialysis well. 07/14/21: Continues to have high gains, unfortunately [facility] without staff to open tomorrow for extra [...] improving. Fluid gains continue to be high, [facility] not open on this week, says he will do his best withlimiting salt/fluid. HE does feel SOB with exertion with extra fluid on, no orthopnea. 05/26/21: Has SOB when >5 Kg over dry weight, extra run last week at [place] helped. Trying his best with fluid restriction. [...] extra run and we discussed going to [facility] tomorrow for UF only run and he [...] again today, may need extra run at [facility] if can't get down over next week. 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 06/10: Doing well overall, no new complaints, [...] Went to Urgent care -> ER in [place] yesterday,CT with R hydro but no obstructive [...] had infiltration last week, dialyzed at [facility] on Sat and went well, access [...] (05/26/21) Vascular Access Assessment: Type of access: [id number]/2019 Surgeon - Lary GARDNER Access working well [...] to go further to get this as [facility] not open but he doesn't feel he can drive that far Ernie Pompa MD [ Signed And locked electronically On 07/14/2021 at 09:24:45 AM ] Transcribed: Ernie Pompa ( 07/14/2021 ) documented in this encounter Plan of Treatment Not on filedocumented as of this encounter Visit Diagnoses Not on filedocumented in this encounter
--- OUTSIDE RECORDS SUMMARY | 2021-11-25 10:54 | XMS_ITS | Encounter Summary ---
:1945 Author Organization [facility] Address [address] [place] [address] Care Team Providers Name Role Phone Unavailable Primary Care Provider Unavailable Encounter Details Date Type Department Care Team Description 06/02/2021 Orders Only [facility] f Ernie Guzmán MD [phone] [place] [address] [place], [place] [phone] (Wo rk) Social History Tobacco Use [...] 06/03/2021 Unless otherwise specified, test(s) performed at: [facility], [address] [place] [address] STRAW HAT PRESSER: Alec Payan M.D. For any questions, please call customer service at FREQUENCY:OTHER Resulting Agency Comment Specimen source: Blood Ernie Pompa MD LAB BLOOD ORDERABLES Performing Organization Address City/State/ZIP Code Phon e Number [facility] documented in this encounter Visit Diagnoses Not on filedocumented in this encounter
--- OUTSIDE RECORDS SUMMARY | 2021-11-25 10:54 | XMS_ITS | Encounter Summary ---
:1945 Author Organization [facility] Address [address] [place] [address] Care Team Providers Name Role Phone Unavailable Primary Care Provider Unavailable Encounter Details Date Type Department Care Team Description 06/16/2021 Orders Only [facility] f Ernie Guzmán MD [phone] [place] [address] [place], [place] [phone] (Wo rk) Social History Tobacco Use [...] 06/17/2021 Unless otherwise specified, test(s) performed at: [facility], [address] [place] [address] FUR PULLER: Alec Payan M.D. For any questions, please call customer service at FREQUENCY:OTHER Resulting Agency Comment Specimen source: Blood Ernie Pompa MD LAB BLOOD ORDERABLES Performing Organization Address City/State/ZIP Code Phon e Number [facility] documented in this encounter Visit Diagnoses Not on filedocumented in this encounter
--- OUTSIDE RECORDS SUMMARY | 2021-11-25 10:54 | XMS_ITS | Encounter Summary ---
:1945 Author Organization [facility] Address [address] [place] [address] Care Team Providers Name Role Phone Unavailable Primary Care Provider Unavailable Encounter Details Date Type Department Care Team Description 06/09/2021 Treatment [facility] f Ernie Guzmán MD [address] [place] [address] [place], [place] [phone] (Wo rk) Social History Tobacco Use Types Packs/Day Years Used Date Smoking Tobacco: Unknown Comments: Smoking History Info:Patient n ot screened Sex Assigned at Date Recorded Not on file documented as of this encounter Miscellaneous Notes Dialysis Note - Ernie Pompa MD - 06/09/2021 10:34 AM CDT Date: Jun 09, 2021 Patient Name: Shaun Ocampo : 1945 Chart #: [id number] Sex: M This patient was personally seen [...] AM ) BP (sit): 115/55 AP(-) / SQUEEGEE OPERATOR: 161/150 Pulse: 67 Chairside data as [...] mcg IVP Every 2 weeks 06/09/2021 06/08/2022 OXIDIZED FINISH PLATER: Ernie Pompa MD LOCATION: [phone] SCHEDULE: -- 2nd Shift ACCESS: EDW: kg. DIALYZER: HD DURATION: NEEDLE SIZE: ANTICOAG: BATH: QB: ml/min QD: ml/min Subjective Tolerating dialysis well. 06/09/21: Feels better today, had steroid injections in knees yesterday at [facility]. To do PT as well. He pulled muscle in his lower arm on L side last week getting into car, hurt a lot but is improving. Fluid gains continue to be high, [place] not open on this week, says he will do his best withlimiting salt/fluid. HE does feel SOB with exertion with extra fluid on, no orthopnea. 05/26/21: Has SOB when >5 Kg over dry weight, extra run last week at [facility] helped. Trying his best with fluid restriction. [...] extra run and we discussed going to [facility] tomorrow for UF only run and he [...] again today, may need extra run at [facility] if can't get down over next week. 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 06/10: Doing well overall, no new [...] Went to Urgent care -> ER in [place] yesterday,CT with R hydro but no obstructive [...] to take if still above goal. 01/21: hSaun feels quite well, was out on 4 [...] (05/05/21) Vascular Access Assessment: Type of access: [id number]/2019 Surgeon - Lary GARDNER Access working well [...]
--- OUTSIDE RECORDS SUMMARY | 2021-11-25 10:54 | XMS_ITS | Encounter Summary ---
:1945 Author Organization [facility] Address [address] [place] [address] [address]kw[address] [place] [address] Care Team Providers Name Role Phone Unavailable Primary Care Provider Unavailable Encounter Details Date Type Department Care Team Description 05/21/2021 Orders Only [facility] f Ernie Guzmán MD [address] [place] [address] [place], [place] [phone] (Wo rk) Social History Tobacco Use [...] / Volume Laterality 05/21/2021 05/22/2021 1:14 PM MEDICARE SPECIALIST Resulting Agency Comment Specimen source: Serum Ernie Pompa MD LAB BLOOD ORDERABLES Performing Organization Address City/State/ZIP Code Phon e Number [facility] POST CHEMISTRY (05/21/2021) athologist Signature BUN Post 12 6 - 19 [facility] Dialysis mg/dL [facility] Specimen (Source) Anatomical Collection Method Collection Time Re ceived Time Location / / Volume Laterality 05/21/2021 05/22/2021 11:5 6 AM MEDICARE SPECIALIST Narrative [facility] - 05/22/2021 Unless otherwise specified, test(s) performed at: [facility], [address] [place] [address] INTERNATIONAL STUDENT ADVISOR: Alec Payan M.D. For any questions, please call customer service at FREQUENCY:OTHER Resulting Agency Comment Specimen source: Plasma Ernie Pompa MD LAB BLOOD ORDERABLES Performing Organization Address City/[facility]/ZIP Code Phon e Number [facility]PS SPECT[facility] (ABNORMAL) Spectrae Chemistry (05/21/2021) athologist Signature Ferritin 640 (H) 22 - 322 [facility] ng/mL [facility] BUN 43 (H) 6 - 19 [facility] mg/dL [facility] Specimen (Source) Anatomical Collection Method Collection Time Re ceived Time Location / / Volume Laterality 05/21/2021 05/22/2021 1:14 PM MEDICARE SPECIALIST Narrative [facility] - 05/22/2021 Unless otherwise specified, test(s) performed at: [facility], [address] [place] [address] INTERNATIONAL STUDENT ADVISOR: Alec Payan M.D. For any questions, please call customer service at FREQUENCY:OTHER Resulting Agency Comment Specimen source: Serum Ernie Pompa MD LAB BLOOD ORDERABLES Performing Organization Address City/State/ZIP Code Phon e Number [facility] documented in this encounter Visit Diagnoses Not on filedocumented in this encounter
--- OUTSIDE RECORDS SUMMARY | 2021-11-25 10:54 | XMS_ITS | Encounter Summary ---
:1945 Author Organization [facility] Address [address] [place] [address] Care Team Providers Name Role Phone Unavailable Primary Care Provider Unavailable Encounter Details Date Type Department Care Team Description 06/23/2021 Orders Only [facility] O f Ernie Guzmán MD [phone] [place] [address] [place], [place] [phone] (Wo rk) Social History Tobacco Use [...] Provider LAB BLOOD ORDERABLES Performing Organization Address City/[facility]/ZIP Code Phon e Number [place] (ABNORMAL) HEMATOLOGY [...] 06/28/2021 Unless otherwise specified, test(s) performed at: [facility], [address] [place], [place] [id number] BRIDGE INSTRUCTOR: Alec Payan M.D. For any questions, please call customer service at FREQUENCY:MONTHLY Resulting Agency Comment Specimen source: Blood Ernie Pompa MD LAB BLOOD ORDERABLES Performing Organization Address City/[facility]/ZIP Code Phon e Number [facility] HD KINETICS (06/23/2021) P athologist Signature % Urea 71 65 - 80 % [facility] Reduction [facility] Specimen (Source) Anatomical Collection Method Collection Time Re ceived Time Location / / Volume Laterality 06/23/2021 06/28/2021 12:3 1 PM CDT Resulting Agency Comment Specimen source: Plasma Ernie Pompa MD LAB BLOOD ORDERABLES Performing Organization Address City/[facility]/ZIP Code Phon e Number [facility] POST CHEMISTRY (06/23/2021) P athologist Signature BUN Post 19 6 - 19 APS SPECTRA Dialysis mg/dL [facility] Specimen (Source) Anatomical Collection Method Collection Time Re ceived Time Location / / Volume Laterality 06/23/2021 06/28/2021 12:3 1 PM CDT Narrative [facility]PS S[facility] - 06/28/2021 Unless otherwise specified, test(s) performed at: [facility], [address] [place] [address] BRIDGE INSTRUCTOR: Alec Payan, M.D. For any questions, please [...] 06/28/2021 Unless otherwise specified, test(s) performed at: [facility], [address] [place] [address] BRIDGE INSTRUCTOR: Alec Payan M.D. For any questions, please call customer service at FREQUENCY:MONTHLY Resulting Agency Comment Specimen source: Serum Ernie Pompa MD LAB BLOOD ORDERABLES Performing Organization Address City/[facility] Phon e Number APS SPECTRA [facility] (ABNORMAL) Spectrae Chemistry (06/23/2021) P athologist Signature PTH 1,243 (H) 16 - 80 [facility]PS [facility] pg/mL [facility] Specimen (Source) Anatomical Collection Method Collection Time Re ceived Time Location / / Volume Laterality 06/23/2021 06/28/2021 10:1 5 AM CDT Narrative [facility]PS SPECTRA [facility] - 06/28/2021 Unless otherwise specified, test(s) performed at: [facility], [address] [place] [address] BRIDGE INSTRUCTOR: Alec Payan M.D. For any questions, please call customer service at FREQUENCY:MONTHLY Resulting Agency Comment Specimen source: Plasma Ernie Pompa MD LAB BLOOD ORDERABLES Performing Organization Address City/[facility] Code Phon e Number [facility]PS SPECTRA [facility] documented in this encounter Visit Diagnoses Not on filedocumented in this encounter
--- OUTSIDE RECORDS SUMMARY | 2021-11-25 10:54 | XMS_ITS | Encounter Summary ---
:1945 Author Organization [facility] Address [address] [place] [address] Care Team Providers Name Role Phone Unavailable Primary Care Provider Unavailable Encounter Details Date Type Department Care Team Description 05/26/2021 Orders Only [facility] O f Ernie Guzmán MD [address] [place] [address] [place], [place] [phone] (Wo rk) Social History Tobacco Use [...] / Volume Laterality 05/26/2021 05/27/2021 6:19 PM APARTMENT MAINTENANCE TECHNICIAN Narrative [facility] - 05/28/2021 Unless otherwise specified, test(s) performed at: [facility], [address] [place], [place] [id number] HOME HEALTH AIDE: Alec Payan M.D. For any questions, please call customer service at FREQUENCY:OTHER Resulting Agency Comment Specimen source: Serum Ernie Pompa MD LAB BLOOD ORDERABLES Performing Organization Address City/[facility]/ZIP Code Phon e Number APS SPECTRA [facility] (ABNORMAL) Spectrae Chemistry (05/26/2021) P athologist Signature PTH 1,356 (H) 16 - 80 [facility]PS [facility]PECTRA pg/mL [facility] Specimen (Source) Anatomical Collection Method Collection Time Re ceived Time Location / / Volume Laterality 05/26/2021 05/27/2021 10:2 3 AM APARTMENT MAINTENANCE TECHNICIAN Narrative [facility]PS SPECTRA [facility] - 05/27/2021 Unless otherwise specified, test(s) performed at: [facility], [address] [place], [place] [id number] HOME HEALTH AIDE: Alec Payan M.D. For any questions, please call customer service at FREQUENCY:OTHER Resulting Agency Comment Specimen source: Plasma Ernie Pompa MD LAB BLOOD ORDERABLES Performing Organization Address City/[facility] Code Phon e Number APS [...] Volume Laterality 05/26/2021 05/27/2021 10:1 9 AM APARTMENT MAINTENANCE TECHNICIAN Narrative [facility]PS SPECTRA [facility] - 05/27/2021 Unless otherwise specified, test(s) performed at: [facility], [address] [place], [place] [id number] HOME HEALTH AIDE: Alec Payan M.D. For any questions, please call customer service at FREQUENCY:OTHER Resulting Agency Comment Specimen source: Blood Ernie Pompa MD LAB BLOOD ORDERABLES Performing Organization Address City/State/ZIP Code Phon e Number [facility] S[facility] documented in this encounter Visit Diagnoses Not on filedocumented in this encounter
--- OUTSIDE RECORDS SUMMARY | 2021-11-25 10:54 | XMS_ITS | Encounter Summary ---
:1945 Author Organization [facility] Address [address] [place] [address] Care Team Providers Name Role Phone Unavailable Primary Care Provider Unavailable Encounter Details Date Type Department Care Team Description 07/07/2021 Orders Only [facility] O f Ernie Guzmán MD [address] [place] [address] [place], [place] [phone] (Wo rk) Social History Tobacco Use [...] 07/10/2021 Unless otherwise specified, test(s) performed at: [facility] [address] [place] [address] ALLIANCE MANAGER: Alec Payan M.D. For any questions, [...] 07/10/2021 Unless otherwise specified, test(s) performed at: [facility] [address] [place], [place] [id number] ALLIANCE MANAGER: Alec Payan M.D. For any questions, please call customer service at FREQUENCY:OTHER Resulting Agency Comment Specimen source: Plasma Ernie Pompa MD LAB BLOOD ORDERABLES Performing Organization Address [facility] Phon e Number APS SPECTRA [facility] (ABNORMAL) [...] 07/10/2021 Unless otherwise specified, test(s) performed at: [facility] [address] [place] [address] ALLIANCE MANAGER: Alec Payan M.D. For any questions, please call customer service at FREQUENCY:OTHER Resulting Agency Comment Specimen source: Blood Ernie Pompa MD LAB BLOOD ORDERABLES Performing Organization Address City/[facility]/ZIP [facility] Phon e Number [facility] SPECTRA [facility] documented in this encounter Visit Diagnoses Not on filedocumented in this encounter
--- OUTSIDE RECORDS SUMMARY | 2021-11-25 10:54 | XMS_ITS | Encounter Summary ---
:1945 Author Organization [facility] Address [address] [place] [address] Care Team Providers Name Role Phone Unavailable Primary Care Provider Unavailable Encounter Details Date Type Department Care Team Description 07/21/2021 Treatment [facility] f Ernie Guzmán MD [address] [place] [address] [place], [place] [phone] (Wo rk) Social History Tobacco Use Types Packs/Day Years Used Date Smoking Tobacco: Unknown Comments: Smoking History Info:Patient n ot screened Sex Assigned at Date Recorded Not on file documented as of this encounter Miscellaneous Notes Dialysis Note - Ernie Pompa MD - 07/21/2021 9:02 AM CDT Date: July 21, 2021 Patient Name: Shaun Ocampo : 1945 Chart #: [id number] Sex: M This patient was personally seen [...] AM ) BP (sit): 112/56 AP(-) / HEALTH EDUCATION TEACHER: 158/144 Pulse: 77 Chairside data as of [...] mcg IVP Every 2 weeks 07/21/2021 07/20/2022 SPOTLIGHT OPERATOR: Ernie Pompa MD LOCATION: [place] [phone] SCHEDULE: -W- 2nd Shift EDW: kg. DIALYZER: HD DURATION: NEEDLE SIZE: ANTICOAG: BATH: QB: ml/min QD: ml/min Subjective Tolerating dialysis well. 07/21/21: Continues to struggle with fluid gains, extra UF run scheduled tomorrow at [facility]. He does feel more SOB when fluid overloaded. No new symptoms otherwise, he is enjoying the nicer weather which allows him to do more activity and not sit at home and drink fluids which he thinks will help with IDWG's. 07/14/21: Continues to have high gains, unfortunately [facility] without staff to open tomorrow for extra [...] improving. Fluid gains continue to be high, [facility] not open on this week, says he will do his best withlimiting salt/fluid. HE does feel SOB with exertion with extra fluid on, no orthopnea. 05/26/21: Has SOB when >5 Kg over dry weight, extra run last week at [facility] helped. Trying his best with fluid restriction. [...] extra run and we discussed going to [facility] tomorrow for UF only run and he [...] again today, may need extra run at [facility] if can't get down over next week. 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 06/10: Doing well overall, no new complaints, [...] Went to Urgent care -> ER in [place] yesterday,CT with R hydro but no obstructive [...] prescription. Vascular Access Assessment Type of access: [id number]/[email or web address] Surgeon - Lary GARDNER Access working well [...] goal. Intact PTH is above goal. Machine Set Up Operator Paper Goods will adjust binders and vitamin D per [...] euvolemia, extra UF run planned 07/22/21 at [facility] Transplant Status: Patient is not a candidate. Weight, co-morbidities, age Resuscitation Status Stable dialysis, no changes to prescription Extra UF run tomorrow at [facility] Continue work on lower IDWG's Monthly labs being drawn today Ernie Pompa MD [ Signed And locked electronically On 07/21/2021 at 09:05:19 AM ] Transcribed: Ernie Pompa ( 07/21/2021 ) documented in this encounter Plan of Treatment Not on filedocumented as of this encounter Visit Diagnoses Not on filedocumented in this encounter
--- OUTSIDE RECORDS SUMMARY | 2021-11-25 10:54 | XMS_ITS | Encounter Summary ---
:1945 Author Organization [facility] Address [address] [place] [address] Care Team Providers Name Role Phone Unavailable Primary Care Provider Unavailable Encounter Details Date Type Department Care Team Description 06/09/2021 Orders Only [facility] O f Ernie Guzmán MD [address] [place] [address] [place], [place] [phone] (Wo rk) Social History Tobacco Use [...] 06/10/2021 Unless otherwise specified, test(s) performed at: [facility], [address] [place] [address] STAFF DESIGN ENGINEER: Alec Payan M.D. For any questions, please call customer service at FREQUENCY:OTHER Resulting Agency Comment Specimen source: Blood Ernie Pompa MD LAB BLOOD ORDERABLES Performing Organization Address City/State/ZIP Code Phon e Number [facility] documented in this encounter Visit Diagnoses Not on filedocumented in this encounter
--- OUTSIDE RECORDS SUMMARY | 2021-11-25 10:54 | XMS_ITS | Encounter Summary ---
:1945 Author Organization [facility] Address [address] [place] [address] Care Team Providers Name Role Phone Unavailable Primary Care Provider Unavailable Encounter Details Date Type Department Care Team Description 05/26/2021 Treatment [facility] f Ernie Guzmán MD [address] [place] [address] [place], [place] [phone] [phone] (Wo rk) Social History Tobacco Use Types Packs/Day Years Used Date Smoking Tobacco: Unknown Comments: Smoking History Info:Patient n ot screened Sex Assigned at Date Recorded Not on file documented as of this encounter Miscellaneous Notes Dialysis Note - Ernie Pompa MD - 05/26/2021 10:14 AM CST Date: May 26, 2021 Patient Name: Shaun Ocampo : 1945 Chart #: [id number] Sex: M This patient was personally seen [...] AM ) BP (sit): 117/59 AP(-) / DRY CANS BACK TENDER: 176/154 Pulse: 78 Chairside data as of [...] mcg IVP Every 2 weeks 05/26/2021 05/25/2022 CANAL BOAT OPERATOR: Ernie Pompa MD LOCATION: [facility] [phone] SCHEDULE: -- 2nd Shift EDW: kg. DIALYZER: HD DURATION: NEEDLE SIZE: ANTICOAG: BATH: QB: ml/min QD: ml/min Subjective Tolerating dialysis well. 05/26/21: Has SOB when >5 Kg over dry weight, extra run last week at [facility] helped. Trying his best with fluid restriction. [...] had extra run prior to [facility] and ran [facility] that week an got [...] extra run and we discussed going to [place] tomorrow for UF only run and he [...] again today, may need extra run at [facility] if can't get down over next week. 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 06/10: Doing well overall, no new complaints, [...] Went to Urgent care -> ER in [place] yesterday,CT with R hydro but no obstructive [...] prescription. Vascular Access Assessment Type of access: [id number]/2019 Surgeon - Lary KUMARW Access working well [...] at goal. Intact PTH is above goal. Axle And Frame Mechanic will adjust binders and vitamin D per [...] as tolerated, may need extra run at [facility] again if can't achieve dry weight Continue [...]
--- OUTSIDE RECORDS SUMMARY | 2021-11-25 10:54 | XMS_ITS | Encounter Summary ---
:1945 Author Organization [facility] Address [address] [place] [address] Care Team Providers Name Role Phone Unavailable Primary Care Provider Unavailable Encounter Details Date Type Department Care Team Description 07/21/2021 Orders Only [facility] f Ernie Guzmán MD [phone] [place] [address] [place], [place] [phone] (Wo rk) Social History Tobacco Use [...] 07/24/2021 Unless otherwise specified, test(s) performed at: [facility], [address] [place] [address] LEARNING TECHNOLOGIES SPECIALIST: Alec Payan M.D. For any questions, [...] 07/24/2021 Unless otherwise specified, test(s) performed at: [facility], [address] [place] [address] LEARNING TECHNOLOGIES SPECIALIST: Alec Payan M.D. For any questions, please call customer service at FREQUENCY:MONTHLY Resulting Agency Comment Specimen source: Serum Ernie Pompa MD LAB BLOOD ORDERABLES Performing Organization Address City/[facility] Phon e Number APS SPECTRA [facility] POST CHEMISTRY (07/21/2021) P athologist Signature BUN Post 14 6 - 19 APS S[facility]RA Dialysis mg/dL [facility] Specimen (Source) Anatomical Collection Method Collection Time Re ceived Time Location / / Volume Laterality 07/21/2021 07/23/2021 4:30 PM CDT Narrative [facility] - 07/24/2021 Unless otherwise specified, test(s) performed at: [facility], [address] [place] [address] LEARNING TECHNOLOGIES SPECIALIST: Alec Payan M.D. For any questions, please call customer service at FREQUENCY:MONTHLY Resulting Agency Comment Specimen source: Plasma Ernie Pompa MD LAB BLOOD ORDERABLES Performing Organization Address City/[facility] Phon e Number [facility]PS SPECT[facility] IMMUNO CHEMISTRY (07/21/2021) P athologist Signature Hep B Surface Negative Negative APS SPECTRA Ag [facility] Specimen (Source) Anatomical Collection Method Collection Time Re ceived Time Location / / Volume Laterality 07/21/2021 07/23/2021 12:4 6 PM CDT Narrative [facility] - 07/23/2021 Unless otherwise specified, test(s) performed at: [facility], [address] [place] [address] LEARNING TECHNOLOGIES SPECIALIST: Alec Payan M.D. For any questions, [...] 07/23/2021 Unless otherwise specified, test(s) performed at: [facility], [address] [place] [address] LEARNING TECHNOLOGIES SPECIALIST: Alec Payan M.D. For any questions, please call customer service at FREQUENCY:MONTHLY Resulting Agency Comment Specimen source: Blood Ernie Pompa MD LAB BLOOD ORDERABLES Performing Organization Address City/State/ZIP Code Phon e Number APS SPECTRA [facility] documented in this encounter Visit Diagnoses Not on filedocumented in this encounter
--- OUTSIDE RECORDS SUMMARY | 2021-11-25 10:55 | XMS_ITS | Encounter Summary ---
:1945 Author Organization [facility] Address [address] [place] [address] Care Team Providers Name Role Phone Unavailable Primary Care Provider Unavailable Encounter Details Date Type Department Care Team Description 12/09/2020 Orders [facility] f Ernie Guzmán MD [phone] [place] [address] [place], [place] [phone] (Wo rk) Social History Tobacco Use [...] 12/10/2020 Unless otherwise specified, test(s) performed at: [facility], [address] [place] [address] PROTOTYPE MACHINIST: Alec Payan M.D. For any questions, please call customer service at FREQUENCY:OTHER Resulting Agency Comment Specimen source: Blood Ernie Pompa MD LAB BLOOD ORDERABLES Performing Organization Address City/State/ZIP Code Phon e Number APS SPECTRA [facility] documented in this encounter Visit Diagnoses Not on filedocumented in this encounter
--- OUTSIDE RECORDS SUMMARY | 2021-11-25 10:55 | XMS_ITS | Encounter Summary ---
:1945 Author Organization [facility] Address [address] [place] [address] Care Team Providers Name Role Phone Unavailable Primary Care Provider Unavailable Encounter Details Date Type Department Care Team Description 01/06/2021 Orders [facility] f Ernie Guzmán MD [phone] [place] [address] [place], [place] [phone] (Wo rk) Social History Tobacco Use [...] 01/07/2021 Unless otherwise specified, test(s) performed at: [facility], [address] [place] [address] FRONT OFFICE SUPERVISOR: Alec Payan M.D. For any questions, please call customer service at FREQUENCY:OTHER Resulting Agency Comment Specimen source: Blood Ernie Pompa MD LAB BLOOD ORDERABLES Performing Organization Address City/State/ZIP Code Phon e Number APS SPECTRA [facility] documented in this encounter Visit Diagnoses Not on filedocumented in this encounter
--- OUTSIDE RECORDS SUMMARY | 2021-11-25 10:55 | XMS_ITS | Encounter Summary ---
:1945 Author Organization [facility] Address [address] [place] [address] Care Team Providers Name Role Phone Unavailable Primary Care Provider Unavailable Encounter Details Date Type Department Care Team Description 04/14/2021 Orders [facility] f Ernie Guzmán MD [phone] [place] [address] [place], [place] [phone] (Wo rk) Social History Tobacco Use [...] Volume Laterality 04/14/2021 04/15/2021 10:0 0 AM AUDITING CLERK Narrative [facility]PS SPECTRA [facility] - 04/15/2021 Unless otherwise specified, test(s) performed at: [facility], [address] [place] [address] AGITATOR OPERATOR: Alec Payan M.D. For any questions, please call customer service at FREQUENCY:OTHER Resulting Agency Comment Specimen source: Blood Ernie Pompa MD LAB BLOOD ORDERABLES Performing Organization Address City/State/ZIP Code Phon e Number APS SPECTRA [facility] documented in this encounter Visit Diagnoses Not on filedocumented in this encounter
--- OUTSIDE RECORDS SUMMARY | 2021-11-25 10:55 | XMS_ITS | Encounter Summary ---
:1945 Author Organization [facility] Address [address] [place] [address] Care Team Providers Name Role Phone Unavailable Primary Care Provider Unavailable Encounter Details Date Type Department Care Team Description 02/10/2021 Orders [facility] f Ernie Guzmán MD [address] [place] [address] [place], [place] [phone] (Wo rk) Social History Tobacco Use [...] / Volume Laterality 02/10/2021 02/12/2021 2:38 PM HEALTH PROGRAM SPECIALIST Narrative [facility]PS SPECTRA [facility] - 02/12/2021 Unless otherwise specified, test(s) performed at: [facility], [address] [place] [address] DENTAL LABORATORY TECHNICIAN: Alec Payan M.D. For any questions, please call customer service at FREQUENCY:OTHER Resulting Agency Comment Specimen source: Blood Ernie Pompa MD LAB BLOOD ORDERABLES Performing Organization Address City/State/ZIP Code Phon e Number APS SPECTRA [facility] documented in this encounter Visit Diagnoses Not on filedocumented in this encounter
--- OUTSIDE RECORDS SUMMARY | 2021-11-25 10:55 | XMS_ITS | Encounter Summary ---
:1945 Author Organization [facility] Address [address] [place] [address] Care Team Providers Name Role Phone Unavailable Primary Care Provider Unavailable Encounter Details Date Type Department Care Team Description 05/05/2021 Orders [facility] f Ernie Guzmán MD [address] [place] [address] [place], [place] [phone] (Wo rk) Social History Tobacco Use [...] / Volume Laterality 05/05/2021 05/06/2021 8:46 PM ZOO KEEPER Narrative [facility]PS SPECTRA [facility] - 05/07/2021 Unless otherwise specified, test(s) performed at: [facility], [address] [place] [address] COKE HANDLING SUPERVISOR: Alec Payan M.D. For any questions, [...] / Volume Laterality 05/05/2021 05/06/2021 5:29 PM ZOO KEEPER Narrative APS SPECTRA [facility] - 05/06/2021 Unless otherwise specified, test(s) performed at: [facility], [address] [place], [place] [id number] COKE HANDLING SUPERVISOR: Alec Payan M.D. For any questions, please call customer service at FREQUENCY:OTHER Resulting Agency Comment Specimen source: Blood Ernie Pompa MD LAB BLOOD ORDERABLES Performing Organization Address [facility] Phon e Number APS SPECTRA [facility] (ABNORMAL) Spectrae Chemistry (05/05/2021) P athologist Signature PTH 1,457 (H) 16 - 80 APS SPECTRA pg/mL [facility] Specimen (Source) Anatomical Collection Method Collection Time Re ceived Time Location / / Volume Laterality 05/05/2021 05/06/2021 5:24 PM ZOO KEEPER Narrative APS SPECTRA [facility] - 05/06/2021 Unless otherwise specified, test(s) performed at: [facility], [address] [place] [address] COKE HANDLING SUPERVISOR: Alec Payan M.D. For any questions, please call customer service at FREQUENCY:OTHER Resulting Agency Comment Specimen source: Plasma Ernie Pompa MD LAB BLOOD ORDERABLES Performing Organization Address City/[facility] Phon e Number APS SPECTRA [facility] documented in this encounter Visit Diagnoses Not on filedocumented in this encounter
--- OUTSIDE RECORDS SUMMARY | 2021-11-25 10:55 | XMS_ITS | Encounter Summary ---
:1945 Author Organization [facility] Address [address] [place] [address] Care Team Providers Name Role Phone Unavailable Primary Care Provider Unavailable Encounter Details Date Type Department Care Team Description 05/05/2021 Treatment [facility] f Ernie Guzmán MD [address] [place] [address] [place], [place] [phone] [phone] (Wo rk) Social History Tobacco Use Types Packs/Day Years Used Date Smoking Tobacco: Unknown Comments: Smoking History Info:Patient n ot screened Sex Assigned at Date Recorded Not on file documented as of this encounter Miscellaneous Notes Dialysis Note - Ernie Pompa MD - 05/05/2021 10:18 AM CST Date: May 05, 2021 Patient Name: Shaun Ocampo : 1945 Chart #: [id number] Sex: M This patient was personally seen [...] AM ) BP (sit): 110/50 AP(-) / STAFF GENETIC COUNSELOR: 174/144 Pulse: 73 Chairside data as of [...] mcg IVP Every 2 weeks 04/28/2021 04/27/2022 HAND STONER: Ernie Pompa MD LOCATION: [phone] SCHEDULE: M-W-F 2nd Shift ACCESS: EDW: kg. [...] extra run and we discussed going to [place] tomorrow for UF only run and he [...] again today, may need extra run at [place] if can't get down over next week. 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 06/10: Doing well overall, no new complaints, [...] Went to Urgent care -> ER in [place] yesterday,CT with R hydro but no obstructive [...] infiltration last week, dialyzed at [facility] on Sat and went well, access [...] (03/24/21) Vascular Access Assessment: Type of access: [id number]/2019 Surgeon - Lary GARDNER Access working well [...]
--- OUTSIDE RECORDS SUMMARY | 2021-11-25 10:55 | XMS_ITS | Encounter Summary ---
:1945 Author Organization [facility] Address [address] [place] [address] Care Team Providers Name Role Phone Unavailable Primary Care Provider Unavailable Encounter Details Date Type Department Care Team Description 02/03/2021 Treatment [facility] O Ernie Gómez MD [address] [place] [address] [place], [place] [phone] (Wo rk) Social History Tobacco Use Types Packs/Day Years Used Date Smoking Tobacco: Unknown Comments: Smoking History Info:Patient n ot screened Sex Assigned at Date Recorded Not on file documented as of this encounter Miscellaneous Notes Dialysis Note - Ernie Pompa MD - 02/03/2021 11:33 AM CST Date: Feb 03, 2021 Patient Name: Shaun Ocampo : 1945 Chart #: [id number] Sex: M This patient was personally seen [...] 2.0 mcg ORAL Every Treatment 12/30/2020 12/29/2021 FOOD OPERATIONS MANAGER: Ernie Popma MD LOCATION: [facility] [phone] SCHEDULE: M-W- 2nd Shift ACCESS: EDW: kg. 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 06/10: Doing well overall, no new complaints, [...] Went to Urgent care -> ER in [place] yesterday,CT with R hydro but no obstructive [...] (11/18/20) Vascular Access Assessment: Type of access: [id number]/2019 Surgeon - Lary GARDNER Access working well [...]
--- OUTSIDE RECORDS SUMMARY | 2021-11-25 10:55 | XMS_ITS | Encounter Summary ---
:1945 Author Organization [facility] Address [address] [place] [address] Care Team Providers Name Role Phone Unavailable Primary Care Provider Unavailable Encounter Details Date Type Department Care Team Description 12/16/2020 Orders [facility] O f Ernie Guzmán MD [address] [place] [address] [place], [place] [phone] (Wo rk) Social History Tobacco Use [...] 12/17/2020 Unless otherwise specified, test(s) performed at: [facility], [address] [place] [address] CHIEF WARDEN: Alec Payan M.D. For any questions, please call customer service at FREQUENCY:OTHER Resulting Agency Comment Specimen source: Blood Ernie Pompa MD LAB BLOOD ORDERABLES Performing Organization Address City/State/ZIP Code Phon e Number APS SPECTRA [facility] documented in this encounter Visit Diagnoses Not on filedocumented in this encounter
--- OUTSIDE RECORDS SUMMARY | 2021-11-25 10:55 | XMS_ITS | Encounter Summary ---
:1945 Author Organization [facility] Address [address] [place] [address] Care Team Providers Name Role Phone Unavailable Primary Care Provider Unavailable Encounter Details Date Type Department Care Team Description 02/03/2021 Orders [facility] O f Ernie Guzmán MD [address] [place] [address] [place], [place] [phone] (Wo rk) Social History Tobacco Use [...] Volume Laterality 02/03/2021 02/04/2021 11:2 7 AM SALES ENABLEMENT ANALYST Narrative APS SPECTRA [facility] - 02/04/2021 Unless otherwise specified, test(s) performed at: [facility], [address] [place] [address] PATHOLOGIST: Alec Payan M.D. For any questions, please call customer service at FREQUENCY:OTHER Resulting Agency Comment Specimen source: Blood Ernie Pompa MD LAB BLOOD ORDERABLES Performing Organization Address City/State/ZIP Code Phon e Number APS SPECTRA [facility] documented in this encounter Visit Diagnoses Not on filedocumented in this encounter
--- OUTSIDE RECORDS SUMMARY | 2021-11-25 10:55 | XMS_ITS | Encounter Summary ---
:1945 Author Organization [facility] Address [address] [place] [address] Care Team Providers Name Role Phone Unavailable Primary Care Provider Unavailable Encounter Details Date Type Department Care Team Description 03/03/2021 Treatment [facility] O Ernie Gómez MD [address] [place] [address] [place], [place] [phone] (Wo rk) Social History Tobacco Use Types Packs/Day Years Used Date Smoking Tobacco: Unknown Comments: Smoking History Info:Patient n ot screened Sex Assigned at Date Recorded Not on file documented as of this encounter Miscellaneous Notes Dialysis Note - Ernie Pompa MD - 03/03/2021 9:56 AM CST Date: Mar 03, 2021 Patient Name: Shaun Ocampo : 1945 Chart #: [id number] Sex: M This patient was personally seen [...] AM ) BP (sit): 124/50 AP(-) / CAREGIVER SERVICES HOME: 188/160 Pulse: 72 Chairside data as of [...] 11/20/2020 Access Flow 1384 > 2000 1432 LATIN DANCE INSTRUCTOR: Ernie Pompa MD LOCATION: [place] [phone] SCHEDULE: -- 2nd Shift EDW: kg. DIALYZER: [...] again today, may need extra run at [place] if can't get down over next week. 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 06/10: Doing well overall, no new complaints, [...] Went to Urgent care -> ER in [place] yesterday,CT with R hydro but no obstructive [...] prescription. Vascular Access Assessment Type of access: [id number]/2019 Surgeon - Lary KUMARW Access working well [...] above goal. Intact PTH is at goal. Steel Finisher will adjust binders and vitamin D per [...]
--- OUTSIDE RECORDS SUMMARY | 2021-11-25 10:55 | XMS_ITS | Encounter Summary ---
:1945 Author Organization [facility] Address [address] [place] [address] Care Team Providers Name Role Phone Unavailable Primary Care Provider Unavailable Encounter Details Date Type Department Care Team Description 03/24/2021 [facility] Only [facility] O f Ernie Guzmán MD [phone] [place] [address] [place], [place] [phone] (Wo rk) Social History Tobacco Use [...] and its performa nce characteristics determined by [facility]. It has not been cleared or approved by the FDA. The laboratory is regulated under CLIA a s qualified to perform high complexity testing. This test is used fo r clinical purposes. It should not be regarded as investigational or fo r research. Specimen (Source) Anatomical Collection Method Collection Time Re ceived Time Location / / Volume Laterality 03/24/2021 03/26/2021 11:3 3 AM DEPLOYMENT ENGINEER Narrative APS S[facility]RA [facility] - 03/29/2021 Unless otherwise specified, test(s) performed at: [facility], [address] [place] [address] ELECTRICAL ENGINEERING TECHNICIAN: Alec Payan M.D. For any questions, [...] above test result was obtained using Siemens Osfam Brewingaur XP chemiluminescent method. Results obtaine d with different assay methods or kits cannot be used interchangeably. Specimen (Source) Anatomical Collection Method Collection Time Re ceived Time Location / / Volume Laterality 03/24/2021 03/26/2021 12:2 9 PM DEPLOYMENT ENGINEER Resulting Agency Comment Specimen source: Serum Ernie Pompa MD LAB BLOOD ORDERABLES Performing Organization Address [facility] Code Phon e Number APS [...] BLOOD ORDERABLES Performing Organization Address [facility] Phon e Number [facility] SPECIAL CHEMISTRY (03/24/2021) P athologist Signature Vitamin D, 38.3 30.0 - [facility] 25-OH, Total 100.0 [facility] ng/mL Comment: Vitamin D Status Classification: Deficiency ? <10.0 ng/mL Insufficiency ?10.0-30.0 ng/mL Sufficiency ?30.0-100.0 ng/mL Toxicity ? >100.0 ng/mL Specimen (Source) Anatomical Collection Method Collection Time Re ceived Time Location / / Volume Laterality 03/24/2021 03/26/2021 12:2 9 PM DEPLOYMENT ENGINEER Narrative [facility] - 03/27/2021 Unless otherwise specified, test(s) performed at: [facility], [address] [place] [address] ELECTRICAL ENGINEERING TECHNICIAN: Alec Payan M.D. For any questions, please call customer service at FREQUENCY:MONTHLY Resulting Agency Comment Specimen source: Serum Ernie Pompa MD LAB BLOOD BANK TEST ORDERABL ES Performing Organization Address City/[facility] Phon e Number [facility]PS SPECTRA [facility] (ABNORMAL) Spectrae Chemistry (03/24/2021) P athologist Signature PTH 977 (H) 16 - 80 [facility]RA pg/mL [facility] Specimen (Source) Anatomical Collection Method Collection Time Re ceived Time Location / / Volume Laterality 03/24/2021 03/26/2021 11:4 0 AM DEPLOYMENT ENGINEER Narrative [facility] - 03/26/2021 Unless otherwise specified, test(s) performed at: [facility], [address] [place] [address] ELECTRICAL ENGINEERING TECHNICIAN: Alec Payan M.D. For any questions, please call customer service at FREQUENCY:MONTHLY Resulting Agency Comment Specimen source: Plasma Ernie Pompa MD LAB BLOOD ORDERABLES Performing Organization Address [facility] Phon e Number [facility] HD KINETICS (03/24/2021) P athologist Signature % Urea 75 65 - 80 % [facility]PS [facility] Reduction [facility] Specimen (Source) Anatomical Collection Method Collection Time Re ceived Time Location / / Volume Laterality 03/24/2021 03/26/2021 2:17 PM DEPLOYMENT ENGINEER Resulting Agency Comment Specimen source: Plasma Ernie Pompa MD LAB BLOOD ORDERABLES Performing Organization Address [facility] Code Phon e Number [facility] POST CHEMISTRY (03/24/2021) P athologist Signature BUN Post 16 6 - 19 APS SPECTRA Dialysis mg/dL [facility] Specimen (Source) Anatomical Collection Method Collection Time Re ceived Time Location / / Volume Laterality 03/24/2021 03/26/2021 2:15 PM DEPLOYMENT ENGINEER Narrative [facility] - 03/26/2021 Unless otherwise specified, test(s) performed at: [facility], [address] [place] [address] ELECTRICAL ENGINEERING TECHNICIAN: Alec Payan M.D. For any questions, please call customer service at FREQUENCY:MONTHLY Resulting Agency Comment Specimen source: Plasma Ernie Pompa MD LAB BLOOD ORDERABLES Performing Organization Address [facility] Phon e Number [facility]PS SPECTRA [facility] (ABNORMAL) Spectrae Chemistry (03/24/2021) [facility] gist Method Time Signature BUN 63 [...] Volume Laterality 03/24/2021 03/26/2021 12:2 9 PM DEPLOYMENT ENGINEER Narrative [facility]PS S[facility]RA [facility] - 03/28/2021 Unless otherwise specified, test(s) performed at: [facility], [address] [place] [address] ELECTRICAL ENGINEERING TECHNICIAN: Alec Payan M.D. For any questions, please call customer service at FREQUENCY:MONTHLY Resulting Agency Comment Specimen source: Serum Ernie Pompa MD LAB BLOOD ORDERABLES Performing Organization Address City/State/[facility] Code Phon e Number APS [...] Volume Laterality 03/24/2021 03/26/2021 11:5 3 AM DEPLOYMENT ENGINEER Narrative [facility]PS SPECTRA [facility] - 03/26/2021 Unless otherwise specified, test(s) performed at: [facility], [address] [place] [address] ELECTRICAL ENGINEERING TECHNICIAN: Alec Payan M.D. For any questions, please call customer service at FREQUENCY:MONTHLY Resulting Agency Comment Specimen source: Blood Ernie Pompa MD LAB BLOOD ORDERABLES Performing Organization Address City/[facility]/ZIP [facility] Phon e Number [facility]PS SPECTRA [facility] documented in this encounter Visit Diagnoses Not on filedocumented in this encounter
--- OUTSIDE RECORDS SUMMARY | 2021-11-25 10:55 | XMS_ITS | Encounter Summary ---
:1945 Author Organization [facility] Address [address] [place] [address] Care Team Providers Name Role Phone Unavailable Primary Care Provider Unavailable Encounter Details Date Type Department Care Team Description 12/23/2020 [facility] Only [facility] O f Ernie Guzmán MD [address] [place] [address] [place], [place] [phone] (Wo rk) Social History Tobacco Use [...] Provider LAB BLOOD ORDERABLES Performing Organization Address City/[facility]/ZIP Code Phon e Number [facility] HD KINETICS (12/23/2020) P athologist Signature % Urea 75 65 - 80 % APS SPECTRA Reduction [facility] Specimen (Source) Anatomical Collection Method Collection Time Re ceived Time Location / / Volume Laterality 12/23/2020 12/24/2020 8:52 PM CDT Narrative APS SPECTRA [facility] - 12/25/2020 Unless otherwise specified, test(s) performed at: [email or web address], [address] [place], [place] [id number] OIL WELL GUN PERFORATOR OPERATOR: Alec Pyaan M.D. For any questions, please call customer service at FREQUENCY:MONTHLY Resulting Agency Comment Specimen source: Serum Ernie Pompa MD LAB BLOOD ORDERABLES Performing Organization Address [facility] Phon e Number [facility]PS SPECTRA [facility] IMMUNO CHEMISTRY (12/23/2020) P athologist Signature Hep B Surface Negative Negative APS SPECTRA Ag [facility] Specimen (Source) Anatomical Collection Method Collection Time Re ceived Time Location / / Volume Laterality 12/23/2020 12/24/2020 8:51 PM CDT Narrative [facility]PS S[facility]RA [facility] - 12/25/2020 Unless otherwise specified, test(s) performed at: [email or web address], [address] [place] [address] OIL WELL GUN PERFORATOR OPERATOR: Alec Payan M.D. For any questions, please call customer service at FREQUENCY:MONTHLY Resulting Agency Comment Specimen source: Serum Ernie Pompa MD LAB BLOOD ORDERABLES Performing Organization Address City/[facility] Code Phon e Number APS SPECTRA [facility] [...] 12/25/2020 Unless otherwise specified, test(s) performed at: [email or web address], [address] [place] [address] OIL WELL GUN PERFORATOR OPERATOR: Alec Payan M.D. For any questions, [...] 12/25/2020 Unless otherwise specified, test(s) performed at: [email or web address], [address] [place] [address] OIL WELL GUN PERFORATOR OPERATOR: Alec Payan M.D. For any questions, please call customer service at FREQUENCY:MONTHLY Resulting Agency Comment Specimen source: Plasma Ernie Pompa MD LAB BLOOD ORDERABLES Performing Organization Address City/[facility] Phon e Number APS SPECTRA [facility] POST CHEMISTRY (12/23/2020) P athologist Signature BUN Post 11 6 - 19 APS [facility]PECTRA Dialysis mg/dL [facility] Specimen (Source) Anatomical Collection Method Collection Time Re ceived Time Location / / Volume Laterality 12/23/2020 12/24/2020 3:54 PM CDT Narrative APS SPECTRA [facility] - 12/24/2020 Unless otherwise specified, test(s) performed at: [email or web address], [address] [place] [address] OIL WELL GUN PERFORATOR OPERATOR: Alec Payan M.D. For any questions, please call customer service at FREQUENCY:MONTHLY Resulting Agency Comment Specimen source: Plasma Ernie Pompa MD LAB BLOOD ORDERABLES Performing Organization Address City/[facility]/ZIP Code Phon e Number APS SPECTRA [...] 12/24/2020 Unless otherwise specified, test(s) performed at: [email or web address], [address] [place] [address] OIL WELL GUN PERFORATOR OPERATOR: Alec Payan M.D. For any questions, please call customer service at FREQUENCY:MONTHLY Resulting Agency Comment Specimen source: Blood Ernie Pompa MD LAB BLOOD ORDERABLES Performing Organization Address City/State/ZIP Code Phon e Number [facility] S[facility]RA [facility] documented in this encounter Visit Diagnoses Not on filedocumented in this encounter
--- OUTSIDE RECORDS SUMMARY | 2021-11-25 10:55 | XMS_ITS | Encounter Summary ---
:1945 Author Organization [facility] Address [address] [place] [address] Care Team Providers Name Role Phone Unavailable Primary Care Provider Unavailable Encounter Details Date Type Department Care Team Description 01/13/2021 Treatment [facility] O Ernie Gómez MD [address] [place] [address] [place], [place] [phone] (Wo rk) Social History Tobacco Use Types Packs/Day Years Used Date Smoking Tobacco: Unknown Comments: Smoking History Info:Patient n ot screened Sex Assigned at Date Recorded Not on file documented as of this encounter Miscellaneous Notes Dialysis Note - Ernie Pompa MD - 01/13/2021 11:13 AM CDT Date: Jan 13, 2021 Patient Name: Shaun Ocampo : 1945 Chart #: [id number] Sex: M This patient was personally seen [...] AM ) BP (sit): 122/55 AP(-) / CURTAIN HEMMER AUTOMATIC: n/a Pulse: 70 Chairside data as of [...] 2.0 mcg ORAL Every Treatment 12/30/2020 12/29/2021 GROUND DEFENCE OFFICER: Ernie Pompa MD LOCATION: [facility] [phone] SCHEDULE: -- 2nd Shift ACCESS: EDW: kg. 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 06/10: Doing well overall, no new complaints, [...] Went to Urgent care -> ER in [place] yesterday,CT with R hydro but no obstructive [...] He had infiltration last week, dialyzed at [facility] on Sat and went well, [...] (10/21/20) Vascular Access Assessment: Type of access: [id number] Surgeon - Lary GARDNER Access working well [...]
--- OUTSIDE RECORDS SUMMARY | 2021-11-25 10:55 | XMS_ITS | Encounter Summary ---
:1945 Author Organization [facility] Address [address] [place] [address] Care Team Providers Name Role Phone Unavailable Primary Care Provider Unavailable Encounter Details Date Type Department Care Team Description 03/03/2021 Orders Only [facility] O f Ernie Guzmán MD [address] [place] [address] [place], [place] [phone] (Wo rk) Social History Tobacco Use [...] Volume Laterality 03/03/2021 03/04/2021 2:44 PM OCCUPATIONAL HEALTH AND SAFETY ADVISER Narrative APS SPECTRA [facility] - 03/05/2021 Unless otherwise specified, test(s) performed at: [facility], [address] [place] [address] HELPER/DRIVER: Alec Payan M.D. For any questions, please call customer service at FREQUENCY:OTHER Resulting Agency Comment Specimen source: Serum Ernie Leither MD LAB BLOOD ORDERABLES Performing Organization Address City/[facility]/ZIP Code Phon e Number [facility]PS SPECTRA [facility] (ABNORMAL) HEMATOLOGY (03/03/2021) Analysis Performed At Patho logist Time Signature Hemoglobin 10.2 (L) 14.0 - APS SPECTRA 18.0 g/dL [facility] Hemoglobin x 3 30.6 (L) 42.0 - APS SPECTRA 54.0 % [facility] Specimen (Source) Anatomical Collection Method Collection Time Re ceived Time Location / / Volume Laterality 03/03/2021 03/04/2021 1:44 PM OCCUPATIONAL HEALTH AND SAFETY ADVISER Narrative APS SPECTRA [facility] - 03/04/2021 Unless otherwise specified, test(s) performed at: [facility], [address] [place] [address] HELPER/DRIVER: Alec Payan M.D. For any questions, please call customer service at FREQUENCY:OTHER Resulting Agency Comment Specimen source: Blood Ernie Pompa MD LAB BLOOD ORDERABLES Performing Organization Address City/[facility] Phon e Number [facility]PS SPECTRA [facility] documented in this encounter Visit Diagnoses Not on filedocumented in this encounter
--- OUTSIDE RECORDS SUMMARY | 2021-11-25 10:55 | XMS_ITS | Encounter Summary ---
:1945 Author Organization [facility] Address [address] [place] [address] Care Team Providers Name Role Phone Unavailable Primary Care Provider Unavailable Encounter Details Date Type Department Care Team Description 01/27/2021 [facility] Only [facility] O f Ernie Guzmán MD [address] [place] [address] [place], [place] [phone] (Wo rk) Social History Tobacco Use [...] Volume Laterality 01/27/2021 01/28/2021 10:1 8 PM AIDS NURSE Narrative [facility]PS SPECTRA [facility] - 01/29/2021 Unless otherwise specified, test(s) performed at: [facility], [address] [place] [address] MACHINE BUFFER: Alec Payan M.D. For any questions, [...] Volume Laterality 01/27/2021 01/28/2021 10:4 1 PM AIDS NURSE Narrative APS SPECTRA [facility] - 01/29/2021 Unless otherwise specified, test(s) performed at: [facility], [address] [place] [address] MACHINE BUFFER: Alec Payan M.D. For any questions, please call customer service at FREQUENCY:OTHER Resulting Agency Comment Specimen source: Serum Ernie Pompa MD LAB BLOOD ORDERABLES Performing Organization Address City/State/ZIP Code Phon e Number [facility]PS SPECTRA [facility] documented in this encounter Visit Diagnoses Not on filedocumented in this encounter
--- OUTSIDE RECORDS SUMMARY | 2021-11-25 10:55 | XMS_ITS | Encounter Summary ---
:1945 Author Organization [facility] Address [address] [place] [address] Care Team Providers Name Role Phone Unavailable Primary Care Provider Unavailable Encounter Details Date Type Department Care Team Description 01/13/2021 [facility] Only [facility] O f Ernie Guzmán MD [address] [place] [address] [place], [place] [phone] (Wo rk) Social History Tobacco Use [...] 01/14/2021 Unless otherwise specified, test(s) performed at: [facility], [address] [place] [address] ALMOND BLANCHER OPERATOR: Alec Payan M.D. For any questions, please call customer service at FREQUENCY:OTHER Resulting Agency Comment Specimen source: Blood Ernie Pompa MD LAB BLOOD ORDERABLES Performing Organization Address City/State/ZIP Code Phon e Number [facility]PS SPECTRA [facility] documented in this encounter Visit Diagnoses Not on filedocumented in this encounter
--- OUTSIDE RECORDS SUMMARY | 2021-11-25 10:55 | XMS_ITS | Encounter Summary ---
:1945 Author Organization [facility] Address [address] [place] [address] Care Team Providers Name Role Phone Unavailable Primary Care Provider Unavailable Encounter Details Date Type Department Care Team Description 04/28/2021 Orders Only [facility] O f Ernie Guzmán MD [address] [place] [address] [place], [place] [phone] (Wo rk) Social History Tobacco Use [...] Volume Laterality 04/28/2021 04/29/2021 12:1 6 PM WAITER/WAITRESS FIRST CLASS Narrative APS SPECTRA [facility] - 04/29/2021 Unless otherwise specified, test(s) performed at: [facility], [address] [place] [address] LIQUOR MAKER: Alec Payan M.D. For any questions, please call customer service at FREQUENCY:OTHER Resulting Agency Comment Specimen source: Blood Ernie Pompa MD LAB BLOOD ORDERABLES Performing Organization Address City/State/ZIP Code Phon e Number [facility]PS SPECTRA [facility] documented in this encounter Visit Diagnoses Not on filedocumented in this encounter
--- OUTSIDE RECORDS SUMMARY | 2021-11-25 10:55 | XMS_ITS | Encounter Summary ---
:1945 Author Organization [facility] Address [address] [place] [address] Care Team Providers Name Role Phone Unavailable Primary Care Provider Unavailable Encounter Details Date Type Department Care Team Description 03/10/2021 Orders Only [facility] O f Ernie Guzmán MD [address] [place] [address] [place], [place] [phone] (Wo rk) Social History Tobacco Use [...] Volume Laterality 03/10/2021 03/11/2021 10:5 0 AM COSMETIC CHEMIST Narrative APS SPECTRA [facility] - 03/11/2021 Unless otherwise specified, test(s) performed at: [facility], [address] [place] [address] SHAREPOINT APPLICATION DEVELOPER: Alec Payan M.D. For any questions, please call customer service at FREQUENCY:OTHER Resulting Agency Comment Specimen source: Blood Ernie Pompa MD LAB BLOOD ORDERABLES Performing Organization Address City/State/ZIP Code Phon e Number [facility]PS SPECTRA [facility] documented in this encounter Visit Diagnoses Not on filedocumented in this encounter
--- OUTSIDE RECORDS SUMMARY | 2021-11-25 10:55 | XMS_ITS | Encounter Summary ---
:1945 Author Organization [facility] Address [address] [place] [address] Care Team Providers Name Role Phone Unavailable Primary Care Provider Unavailable Encounter Details Date Type Department Care Team Description 02/24/2021 Orders Only [facility] O f Ernie Guzmán MD [address] [place] [address] [place], [place] [phone] (Wo rk) Social History Tobacco Use [...] / Volume Laterality 02/24/2021 02/25/2021 6:54 PM ROLLING MACHINE OPERATOR AUTOMATIC Narrative APS SPECTRA [facility] - 02/26/2021 Unless otherwise specified, test(s) performed at: [facility], [address] [place] [address] DIGITAL MARKETING MANAGER: Alec Payan M.D. For any questions, please call customer service at FREQUENCY:OTHER Resulting Agency Comment Specimen source: Serum Ernie Pompa MD LAB BLOOD ORDERABLES Performing Organization Address City/[facility]/ZIP Code Phon e Number [facility]PS SPECTRA [facility] (ABNORMAL) HEMATOLOGY (02/24/2021) Analysis Performed At Patho logist Time Signature Hemoglobin 10.2 (L) 14.0 - APS SPECTRA 18.0 g/dL [facility] Hemoglobin x 3 30.6 (L) 42.0 - APS SPECTRA 54.0 % [facility] Specimen (Source) Anatomical Collection Method Collection Time Re ceived Time Location / / Volume Laterality 02/24/2021 02/25/2021 10:2 3 AM ROLLING MACHINE OPERATOR AUTOMATIC Narrative APS SPECTRA [facility] - 02/25/2021 Unless otherwise specified, test(s) performed at: [facility], [address] [place] [address] DIGITAL MARKETING MANAGER: Alec Payan M.D. For any questions, please call customer service at FREQUENCY:OTHER Resulting Agency Comment Specimen source: Blood Ernie Pompa MD LAB BLOOD ORDERABLES Performing Organization Address City/[facility] Phon e Number APS SPECTRA [facility] documented in this encounter Visit Diagnoses Not on filedocumented in this encounter
--- OUTSIDE RECORDS SUMMARY | 2021-11-25 10:55 | XMS_ITS | Encounter Summary ---
:1945 Author Organization [facility] Address [address] [place] [address] Care Team Providers Name Role Phone Unavailable Primary Care Provider Unavailable Encounter Details Date Type Department Care Team Description 03/31/2021 Orders Only [facility] O f Ernie Guzmán MD [address] [place] [address] [place], [place] [phone] (Wo rk) Social History Tobacco Use [...] Volume Laterality 03/31/2021 04/01/2021 10:3 5 PM ADOBE LAYER HELPER Narrative [facility]PS SPECTRA [facility] - 04/02/2021 Unless otherwise specified, test(s) performed at: [facility], [address] [place] [address] DRILLING CONTRACTOR: Alec Payan M.D. For any questions, please [...] / Volume Laterality 03/31/2021 04/01/2021 4:18 PM ADOBE LAYER HELPER Narrative APS SPECTRA [facility] - 04/02/2021 Unless otherwise specified, test(s) performed at: [facility], [address] [place], [place] [id number] DRILLING CONTRACTOR: Alec Payan M.D. For any questions, please call customer service at FREQUENCY:OTHER Resulting Agency Comment Specimen source: Plasma Ernie Pompa MD LAB BLOOD ORDERABLES Performing Organization Address [facility] Phon e Number APS SPECTRA [facility] (ABNORMAL) HEMATOLOGY (03/31/2021) Analysis Performed At Patho logist Time Signature Hemoglobin 11.0 (L) 14.0 - APS SPECTRA 18.0 g/dL [facility] Hemoglobin x 3 33.0 (L) 42.0 - APS SPECTRA 54.0 % [facility] Specimen (Source) Anatomical Collection Method Collection Time Re ceived Time Location / / Volume Laterality 03/31/2021 04/01/2021 3:40 PM ADOBE LAYER HELPER Narrative APS SPECTRA [facility] - 04/02/2021 Unless otherwise specified, test(s) performed at: [facility], [address] [place] [address] DRILLING CONTRACTOR: Alec Payan M.D. For any questions, please call customer service at FREQUENCY:OTHER Resulting Agency Comment Specimen source: Blood Ernie Pompa MD LAB BLOOD ORDERABLES Performing Organization Address City/[facility] Phon e Number APS SPECTRA [facility] documented in this encounter Visit Diagnoses Not on filedocumented in this encounter
--- OUTSIDE RECORDS SUMMARY | 2021-11-25 10:55 | XMS_ITS | Encounter Summary ---
:1945 Author Organization [facility] Address [address] [place] [address] Care Team Providers Name Role Phone Unavailable Primary Care Provider Unavailable Encounter Details Date Type Department Care Team Description 04/21/2021 Treatment [facility] f Ernie Guzmán MD [address] [place] [address] [place], [place] [phone] [phone] (Wo rk) Social History Tobacco Use Types Packs/Day Years Used Date Smoking Tobacco: Unknown Comments: Smoking History Info:Patient n ot screened Sex Assigned at Date Recorded Not on file documented as of this encounter Miscellaneous Notes Dialysis Note - Ernie Pompa MD - 04/21/2021 8:58 AM CST Date: Apr 21, 2021 Patient Name: Shaun Ocampo : 1945 Chart #: [id number] Sex: M This patient was personally seen [...] AM ) BP (sit): 113/62 AP(-) / CRAYON PAINTER: 176/155 Pulse: 78 Chairside data as of [...] 50 mg IVP 1X Week 04/12/2021 04/11/2022 CLIN ASST: Ernie Pompa MD LOCATION: [phone] SCHEDULE: M-W-F 2nd Shift EDW: kg. DIALYZER: [...] extra run and we discussed going to [place] tomorrow for UF only run and he [...] again today, may need extra run at [place] if can't get down over next week. 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 06/10: Doing well overall, no new complaints, [...] Went to Urgent care -> ER in [place] yesterday,CT with R hydro but no obstructive [...] prescription. Vascular Access Assessment Type of access: [id number]/2019 Surgeon - Lary GARDNER Access working well [...] at goal. Intact PTH is above goal. Briquette Maker will adjust binders and vitamin D [...]
--- OUTSIDE RECORDS SUMMARY | 2021-11-25 10:55 | XMS_ITS | Encounter Summary ---
:1945 Author Organization [facility] Address [address] [place] [address] Care Team Providers Name Role Phone Unavailable Primary Care Provider Unavailable Encounter Details Date Type Department Care Team Description 05/12/2021 Orders Only [facility] f Ernie Guzmán MD [address] [place] [address] [place], [place] [phone] (Wo rk) Social History Tobacco Use [...] / Volume Laterality 05/12/2021 05/13/2021 1:22 PM PLUMBER SUPERVISOR Narrative [facility] - 05/13/2021 Unless otherwise specified, test(s) performed at: [facility], [address] [place] [address] SERVICE CONTROL OPERATOR: Alec Payan M.D. For any questions, please call customer service at FREQUENCY:OTHER Resulting Agency Comment Specimen source: Blood Ernie Pompa MD LAB BLOOD ORDERABLES Performing Organization Address City/State/ZIP Code Phon e Number [facility] documented in this encounter Visit Diagnoses Not on filedocumented in this encounter
--- OUTSIDE RECORDS SUMMARY | 2021-11-25 10:55 | XMS_ITS | Encounter Summary ---
:1945 Author Organization [facility] Address [address] [place] [address] Care Team Providers Name Role Phone Unavailable Primary Care Provider Unavailable Encounter Details Date Type Department Care Team Description 04/21/2021 Orders [facility] f Ernie Guzmán MD [address] [place] [address] [place], [place] [phone] (Wo rk) Social History Tobacco Use [...] Provider LAB BLOOD ORDERABLES Performing Organization Address City/[facility]/ZIP Code Phon e Number KAMERON (ABNORMAL) Spectrae Chemistry (04/21/2021) athologist Signature PTH 1,441 (H) 16 - 80 [facility] pg/mL [facility] Specimen (Source) Anatomical Collection Method Collection Time Re ceived Time Location / / Volume Laterality 04/21/2021 04/22/2021 1:39 PM INVESTMENT ACCOUNTANT Narrative [facility] - 04/23/2021 Unless otherwise specified, test(s) performed at: [facility], [address] [place], [place] [id number] QUILL CLEANING MACHINE OPERATOR: Alec Payan M.D. For any questions, please call customer service at FREQUENCY:MONTHLY Resulting Agency Comment Specimen source: Plasma Ernie Pompa MD LAB BLOOD ORDERABLES Performing Organization Address [facility] Phon e Number [facility] IMMUNO CHEMISTRY (04/21/2021) athologist [facility] Hep B Surface Negative Negative [facility]PS [facility]PECT[facility] Ag [facility] Specimen (Source) Anatomical Collection Method Collection Time Re ceived Time Location / / Volume Laterality 04/21/2021 04/22/2021 3:00 PM INVESTMENT ACCOUNTANT Narrative [facility] - 04/22/2021 Unless otherwise specified, test(s) performed at: [facility], [address] [place] [address] QUILL CLEANING MACHINE OPERATOR: Alec Payan M.D. For any questions, please call customer service at FREQUENCY:MONTHLY Resulting Agency Comment Specimen source: Serum Ernie Pompa MD LAB BLOOD ORDERABLES Performing Organization Address City/[facility]/ZIP [facility] Phon e Number [facility] HD KINETICS (04/21/2021) athologist Signature % Urea 72 65 - 80 % [facility] Reduction [facility] Specimen (Source) Anatomical Collection Method Collection Time Re ceived Time Location / / Volume Laterality 04/21/2021 04/22/2021 5:02 PM INVESTMENT ACCOUNTANT Resulting Agency Comment Specimen source: Plasma Ernie Pompa MD LAB BLOOD ORDERABLES Performing Organization Address City/State/ZIP Code Phon e Number [facility] POST CHEMISTRY (04/21/2021) P athologist Signature BUN Post 17 6 - 19 [facility]RA Dialysis mg/dL [facility] Specimen (Source) Anatomical Collection Method Collection Time Re ceived Time Location / / Volume Laterality 04/21/2021 04/22/2021 5:01 PM INVESTMENT ACCOUNTANT Narrative [facility] - 04/22/2021 Unless otherwise specified, test(s) performed at: [facility], [address] [place] [address] QUILL CLEANING MACHINE OPERATOR: Alec Payan M.D. For any [...] / Volume Laterality 04/21/2021 04/22/2021 3:00 PM INVESTMENT ACCOUNTANT Narrative [facility] - 04/22/2021 Unless otherwise specified, test(s) performed at: [facility], [address] [place] [address] QUILL CLEANING MACHINE OPERATOR: Alec Payan M.D. For any [...] / Volume Laterality 04/21/2021 04/22/2021 1:17 PM INVESTMENT ACCOUNTANT Narrative [facility] - 04/22/2021 Unless otherwise specified, test(s) performed at: [facility], [address] [place] [address] QUILL CLEANING MACHINE OPERATOR: Alec Payan M.D. For any questions, please call customer service at FREQUENCY:MONTHLY Resulting Agency Comment Specimen source: Blood Ernie Pompa MD LAB BLOOD ORDERABLES Performing Organization Address City/State/ZIP Code Phon e Number [facility] documented in this encounter Visit Diagnoses Not on filedocumented in this encounter
--- OUTSIDE RECORDS SUMMARY | 2021-11-25 10:55 | XMS_ITS | Encounter Summary ---
:1945 Author Organization [facility] Address [address] [place] [address] Care Team Providers Name Role Phone Unavailable Primary Care Provider Unavailable Encounter Details Date Type Department Care Team Description 01/20/2021 Treatment [facility] O Ernie Gómez MD [address] [place] [address] [place], [place] [phone] [phone] (Wo rk) Social History Tobacco Use Types Packs/Day Years Used Date Smoking Tobacco: Unknown Comments: Smoking History Info:Patient n ot screened Sex Assigned at Date Recorded Not on file documented as of this encounter Miscellaneous Notes Dialysis Note - Ernie Pompa MD - 01/20/2021 9:46 AM CDT Date: Jan 20, 2021 Patient Name: Shaun Ocampo : 1945 Chart #: [id number] Sex: M This patient was personally seen [...] 2.0 mcg ORAL Every Treatment 12/30/2020 12/29/2021 DEMO COORDINATOR: Ernie Pompa MD LOCATION: [place] [phone] SCHEDULE: -- 2nd Shift EDW: kg. DIALYZER: [...] for ureteral ?tumor early next month in [place]. 06/10: Doing well overall, no new complaints, [...] Went to Urgent care -> ER in [place] yesterday,CT with R hydro but no obstructive [...] prescription. Vascular Access Assessment Type of access: [email or web address]/2019 Surgeon Annita KUMARW Access working well Anemia [...] at goal. Intact PTH is at goal. Bicycle Assembler will adjust binders and vitamin D per [...]
--- OUTSIDE RECORDS SUMMARY | 2021-11-25 10:55 | XMS_ITS | Encounter Summary ---
:1945 Author Organization [facility] Address [address] [place] [address] Care Team Providers Name Role Phone Unavailable Primary Care Provider Unavailable Encounter Details Date Type Department Care Team Description 04/07/2021 Orders Only [facility] f Ernie Guzmán MD [address] [place] [address] [place], [place] [phone] (Wo rk) Social History Tobacco Use [...] Volume Laterality 04/07/2021 04/09/2021 11:4 3 AM RENOVATOR MACHINE OPERATOR Narrative [facility] - 04/09/2021 Unless otherwise specified, test(s) performed at: [facility], [address] [place] [address] AUTOMATION CONTROL TECHNICIAN: Alec Payan M.D. For any questions, please call customer service at FREQUENCY:OTHER Resulting Agency Comment Specimen source: Blood Ernie Pompa MD LAB BLOOD ORDERABLES Performing Organization Address City/State/ZIP Code Phon e Number [facility] documented in this encounter Visit Diagnoses Not on filedocumented in this encounter
--- OUTSIDE RECORDS SUMMARY | 2021-11-25 10:55 | XMS_ITS | Encounter Summary ---
:1945 Author Organization [facility] Address [address] [place] [address] Care Team Providers Name Role Phone Unavailable Primary Care Provider Unavailable Encounter Details Date Type Department Care Team Description 03/24/2021 Treatment [facility] f Ernie Guzmán MD [address] [place] [address] [place], [place] [phone] [phone] (Wo rk) Social History Tobacco Use Types Packs/Day Years Used Date Smoking Tobacco: Unknown Comments: Smoking History Info:Patient n ot screened Sex Assigned at Date Recorded Not on file documented as of this encounter Miscellaneous Notes Dialysis Note - Ernie Pompa MD - 03/24/2021 9:04 AM CST Date: Mar 24, 2021 Patient Name: Shaun Ocampo : 1945 Chart #: [id number] Sex: M This patient was personally seen [...] AM ) BP (sit): 114/54 AP(-) / GETTER FILLER: 170/152 Pulse: 69 Chairside data as of [...] 0.25 mcg ORAL Every Treatment 03/08/2021 03/07/2022 BOWLING ALLEY REFINISHER: Ernie Pompa MD LOCATION: [phone] SCHEDULE: M-W-F 2nd Shift EDW: kg. DIALYZER: [...] extra run and we discussed going to [place] tomorrow for UF only run and [...] again today, may need extra run at [place] if can't get down over next [...] for ureteral ?tumor early next month in [place]. 06/10: Doing well overall, no new complaints, [...] to Urgent care -> ER in [place] yesterday,CT with R hydro but no obstructive [...] He had infiltration last week, dialyzed at [facility] on Sat and went well, access ok [...] prescription. Vascular Access Assessment Type of access: [id number]/2019 Surgeon Annita GARDNER Access working well Anemia [...] above goal. Intact PTH is at goal. Complaint Coordinator will adjust binders and vitamin D [...]
--- OUTSIDE RECORDS SUMMARY | 2021-11-25 10:55 | XMS_ITS | Encounter Summary ---
:1945 Author Organization [facility] Address [address] [place] [address] Care Team Providers Name Role Phone Unavailable Primary Care Provider Unavailable Encounter Details Date Type Department Care Team Description 04/14/2021 Treatment [facility] f Ernie Guzmán MD [address] [place] [address] [place], [place] [address] [phone] (Wo rk) Social History Tobacco Use Types Packs/Day Years Used Date Smoking Tobacco: Unknown Comments: Smoking History Info:Patient n ot screened Sex Assigned at Date Recorded Not on file documented as of this encounter Miscellaneous Notes Dialysis Note - Ernie Pompa MD - 04/14/2021 10:26 AM CST Date: Apr 14, 2021 Patient Name: Shaun Ocampo : 1945 Chart #: [id number] Sex: M This patient was personally seen [...] AM ) BP (sit): 110/48 AP(-) / WOODWORKING SHOP HAND: 166/145 Pulse: 77 Chairside data as of [...] mcg IVP Every 2 weeks 04/07/2021 04/06/2022 AUTOMATIC PINSETTER ADJUSTER: Ernie Pompa MD LOCATION: [phone] SCHEDULE: M-W- 2nd Shift ACCESS: EDW: kg. [...] extra run and we discussed going to [place] tomorrow for UF only run and he [...] again today, may need extra run at [place] if can't get down over next week. [...] for ureteral ?tumor early next month in [place]. 06/10: Doing well overall, no new complaints, [...] Went to Urgent care -> ER in [place] yesterday,CT with R hydro but no obstructive [...] He had infiltration last week, dialyzed at [facility] on Sat and went well, [...] (02/17/21) Vascular Access Assessment: Type of access: [id number]/2019 Surgeon - Lary GARDNER Access working well [...]
--- OUTSIDE RECORDS SUMMARY | 2021-11-25 10:55 | XMS_ITS | Encounter Summary ---
:1945 Author Organization [facility] Address [address] [place] [address] Care Team Providers Name Role Phone Unavailable Primary Care Provider Unavailable Encounter Details Date Type Department Care Team Description 01/20/2021 Orders Only [facility] O f Ernie Guzmán MD [address] [place] [address] [place], [place] [phone] (Wo rk) Social History Tobacco Use [...] 01/22/2021 Unless otherwise specified, test(s) performed at: [facility], [address] [place] [address] MACHINE BASTER: Alec Payan M.D. For any questions, please [...] 01/22/2021 Unless otherwise specified, test(s) performed at: [facility], [address] [place] [address] MACHINE BASTER: Alec Payan M.D. For any questions, please call customer service at FREQUENCY:MONTHLY Resulting Agency Comment Specimen source: Serum Ernie Pompa MD LAB BLOOD ORDERABLES Performing Organization Address City/[facility] Phon e Number [facility] IMMUNO CHEMISTRY (01/20/2021) P athologist Signature Hep B Surface Negative Negative [facility]PS SPECTRA Ag [facility] Specimen (Source) Anatomical Collection Method Collection Time Re ceived Time Location / / Volume Laterality 01/20/2021 01/21/2021 8:41 PM CDT Narrative [facility] - 01/21/2021 Unless otherwise specified, test(s) performed at: [facility], [address] [place] [address] MACHINE BASTER: Alec Payan M.D. For any questions, please call customer service at FREQUENCY:MONTHLY Resulting Agency Comment Specimen source: Serum Ernie Pompa MD LAB BLOOD ORDERABLES Performing Organization Address City/[facility] Phon e Number [facility] POST CHEMISTRY (01/20/2021) P athologist Signature BUN Post 11 6 - 19 APS [facility]RA Dialysis mg/dL [facility] Specimen (Source) Anatomical Collection Method Collection Time Re ceived Time Location / / Volume Laterality 01/20/2021 01/21/2021 10:5 1 AM CDT Narrative [facility] - 01/21/2021 Unless otherwise specified, test(s) performed at: [facility], [address] [place] [address] MACHINE BASTER: Alec Payan M.D. For any questions, please [...] 01/21/2021 Unless otherwise specified, test(s) performed at: [facility], [address] [place] [address] MACHINE BASTER: Alec Payan M.D. For any questions, please [...] 01/21/2021 Unless otherwise specified, test(s) performed at: [facility], [address] [place] [address] MACHINE BASTER: Alec Payan M.D. For any questions, please call customer service at FREQUENCY:MONTHLY Resulting Agency Comment Specimen source: Plasma Ernie Pompa MD LAB BLOOD ORDERABLES Performing Organization Address City/State/ZIP Code Phon e Number [facility] documented in this encounter Visit Diagnoses Not on filedocumented in this encounter
--- OUTSIDE RECORDS SUMMARY | 2021-11-25 10:55 | XMS_ITS | Encounter Summary ---
:1945 Author Organization [facility] Address [address] [place] [address] Care Team Providers Name Role Phone Unavailable Primary Care Provider Unavailable Encounter Details Date Type Department Care Team Description 03/17/2021 Orders Only [facility] O f Ernie Guzmán MD [address] [place] [address] [place], [place] [phone] (Wo rk) Social History Tobacco Use [...] / Volume Laterality 03/17/2021 03/18/2021 9:32 AM HYDRAULIC GOVERNOR ASSEMBLER Narrative [facility] - 03/18/2021 Unless otherwise specified, test(s) performed at: [facility], [address] [place] [address] COMPRESS ENGINEER: Alec Payan M.D. For any questions, please call customer service at FREQUENCY:OTHER Resulting Agency Comment Specimen source: Blood Ernie Pompa MD LAB BLOOD ORDERABLES Performing Organization Address City/State/ZIP Code Phon e Number [facility] documented in this encounter Visit Diagnoses Not on filedocumented in this encounter
--- OUTSIDE RECORDS SUMMARY | 2021-11-25 10:55 | XMS_ITS | Encounter Summary ---
:1945 Author Organization [facility] Address [address] [place] [address] Care Team Providers Name Role Phone Unavailable Primary Care Provider Unavailable Encounter Details Date Type Department Care Team Description 12/30/2020 Orders Only [facility] O f Ernie Guzmán MD [address] [place] [address] [place], [place] [phone] (Wo rk) Social History Tobacco Use [...] 12/31/2020 Unless otherwise specified, test(s) performed at: [facility], [address] [place] [address] STOCK OR DELIVERY CLERK: Alec Payan M.D. For any questions, please call customer service at FREQUENCY:OTHER Resulting Agency Comment Specimen source: Blood Ernie Pompa MD LAB BLOOD ORDERABLES Performing Organization Address City/State/ZIP Code Phon e Number [facility] documented in this encounter Visit Diagnoses Not on filedocumented in this encounter
--- OUTSIDE RECORDS SUMMARY | 2021-11-25 10:55 | XMS_ITS | Encounter Summary ---
:1945 Author Organization [facility] Address [address] [place] [address] Care Team Providers Name Role Phone Unavailable Primary Care Provider Unavailable Encounter Details Date Type Department Care Team Description 12/30/2020 Treatment [facility] O Ernie Gómez MD [address] [place] [address] [place], [place] [phone] [phone] (Wo rk) Social History Tobacco Use Types Packs/Day Years Used Date Smoking Tobacco: Unknown Comments: Smoking History Info:Patient n ot screened Sex Assigned at Date Recorded Not on file documented as of this encounter Miscellaneous Notes Dialysis Note - Ernie Pompa MD - 12/30/2020 11:49 AM CDT Date: Dec 30, 2020 Patient Name: Shaun Ocampo : 1945 Chart #: [id number] Sex: M This patient was personally seen [...] AM ) BP (sit): 117/57 AP(-) / UNIVERSITY CONTROLLER: 240/207 Pulse: 75 Chairside data as of [...] 2.0 mcg ORAL Every Treatment 12/30/2020 12/29/2021 SHANK CEMENTER HAND: Ernie Pompa MD LOCATION: [facility] [phone] SCHEDULE: -- 2nd Shift EDW: kg. DIALYZER: [...] for ureteral ?tumor early next month in [place]. 06/10: Doing well overall, no new complaints, [...] Went to Urgent care -> ER in [place] yesterday,CT with R hydro but no [...] prescription. Vascular Access Assessment Type of access: [id number]/2019 Surgeon Annita GARDNER Access working well Anemia [...] at goal. Intact PTH is at goal. Preschool Head Teacher will adjust binders and vitamin D [...]
--- OUTSIDE RECORDS SUMMARY | 2021-11-25 10:55 | XMS_ITS | Encounter Summary ---
:1945 Author Organization [facility] Address [address] [place] [address] Care Team Providers Name Role Phone Unavailable Primary Care Provider Unavailable Encounter Details Date Type Department Care Team Description 02/17/2021 Orders Only [facility] f Ernie Guzmán MD [address] [place] [address] [place], [place] [phone] (Wo rk) Social History Tobacco Use [...] / Volume Laterality 02/17/2021 02/18/2021 4:14 PM CLIENT TECHNOLOGIES ANALYST Resulting Agency Comment Specimen source: Serum Ernie Pompa MD LAB BLOOD ORDERABLES Performing Organization Address City/[facility]/ZIP Code Phon e Number APS SPECTRA [facility] POST CHEMISTRY (02/17/2021) P athologist Signature BUN Post 13 6 - 19 APS SPECTRA Dialysis mg/dL [facility] Specimen (Source) Anatomical Collection Method Collection Time Re ceived Time Location / / Volume Laterality 02/17/2021 02/18/2021 4:00 PM CLIENT TECHNOLOGIES ANALYST Narrative APS SPECTRA [facility] - 02/19/2021 Unless otherwise specified, test(s) performed at: [facility], [address] [place] [address] PARTS DESIGNER: Alec Payan M.D. For any questions, please call customer service at FREQUENCY:MONTHLY Resulting Agency Comment Specimen source: Plasma Ernie Pompa MD LAB BLOOD ORDERABLES Performing Organization Address City/[facility] Code Phon e Number APS SPECTRA [facility] IMMUNO CHEMISTRY (02/17/2021) P athologist Signature Hep B Surface Negative Negative APS SPECTRA Ag [facility] Specimen (Source) Anatomical Collection Method Collection Time Re ceived Time Location / / Volume Laterality 02/17/2021 02/18/2021 4:08 PM CLIENT TECHNOLOGIES ANALYST Narrative APS SPECTRA [facility] - 02/18/2021 Unless otherwise specified, test(s) performed at: [facility], [address] [place] [address] PARTS DESIGNER: Alec Payan M.D. For any questions, please call customer service at FREQUENCY:MONTHLY Resulting Agency Comment Specimen source: Serum Ernie Pompa MD LAB BLOOD ORDERABLES Performing Organization Address City/State/ZIP Code Phon e Number APS SPECTRA [facility] (ABNORMAL) Spectrae Chemistry (02/17/2021) [facility] Method Time Signature BUN 46 (H) [...] / Volume Laterality 02/17/2021 02/18/2021 4:08 PM CLIENT TECHNOLOGIES ANALYST Narrative APS SPECTRA [facility] - 02/18/2021 Unless otherwise specified, test(s) performed at: [facility], [address] [place] [address] PARTS DESIGNER: Alec Payan M.D. For any questions, please call customer service at FREQUENCY:MONTHLY Resulting Agency Comment Specimen source: Serum Ernie Pompa MD LAB BLOOD ORDERABLES Performing Organization Address City/[facility] Code Phon e Number APS [...] / Volume Laterality 02/17/2021 02/18/2021 9:53 AM CLIENT TECHNOLOGIES ANALYST Narrative APS SPECTRA [facility] - 02/18/2021 Unless otherwise specified, test(s) performed at: [facility], [address] [place] [address] PARTS DESIGNER: Alec Payan M.D. For any questions, please call customer service at FREQUENCY:MONTHLY Resulting Agency Comment Specimen source: Blood Ernie Pompa MD LAB BLOOD ORDERABLES Performing Organization Address City/[facility]/ZIP [place] Phon e Number APS SPECTRA [facility] (ABNORMAL) Spectrae Chemistry (02/17/2021) P athologist Signature PTH 546 (H) 16 - 80 APS SPECTRA pg/mL [facility] Specimen (Source) Anatomical Collection Method Collection Time Re ceived Time Location / / Volume Laterality 02/17/2021 02/18/2021 10:3 2 AM CLIENT TECHNOLOGIES ANALYST Narrative APS SPECTRA [facility] - 02/18/2021 Unless otherwise specified, test(s) performed at: [facility], [address] [place] [address] PARTS DESIGNER: Alec Payan M.D. For any questions, please call customer service at FREQUENCY:MONTHLY Resulting Agency Comment Specimen source: Plasma Ernie Pompa MD LAB BLOOD ORDERABLES Performing Organization Address City/State/ZIP Code Phon e Number APS SPECTRA [facility] documented in this encounter Visit Diagnoses Not on filedocumented in this encounter
--- OUTSIDE RECORDS SUMMARY | 2021-11-25 10:55 | XMS_ITS | Encounter Summary ---
:1945 Author Organization [facility] Address [address] [place] [address] Care Team Providers Name Role Phone Unavailable Primary Care Provider Unavailable Encounter Details Date Type Department Care Team Description 03/10/2021 Treatment [facility] O Ernie Gómez MD [address] [place] [address] [place], [place] [phone] [phone] (Wo rk) Social History Tobacco Use Types Packs/Day Years Used Date Smoking Tobacco: Unknown Comments: Smoking History Info:Patient n ot screened Sex Assigned at Date Recorded Not on file documented as of this encounter Miscellaneous Notes Dialysis Note - Ernie Pompa MD - 03/10/2021 9:40 AM CST Date: Mar 10, 2021 Patient Name: Shaun Ocampo : 1945 Chart #: [id number] Sex: M This patient was personally seen [...] AM ) BP (sit): 116/55 AP(-) / SUPERVISOR MAILS: 171/146 Pulse: 70 Chairside data as of [...] 0.25 mcg ORAL Every Treatment 03/08/2021 03/07/2022 ENGINEER BYPRODUCT: Ernie Pompa MD LOCATION: [phone] SCHEDULE: -W-F 2nd Shift ACCESS: EDW: kg. DIALYZER: HD DURATION: NEEDLE SIZE: ANTICOAG: BATH: QB: ml/min QD: ml/min Subjective Tolerating dialysis well. 03/10/21: He has been marching in place and increasing duration to try and gain endurance, feels this is helping. Fluid gains continue to be high, no chance of reaching EDW this week without an extra run and we discussed going to [facility] tomorrow for UF only run and he [...] again today, may need extra run at [facility] if can't get down over next week. 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 06/10: Doing well overall, no new complaints, [...] Went to Urgent care -> ER in [place] yesterday,CT with R hydro but no obstructive [...] (12/23/20) Vascular Access Assessment: Type of access: [id number]/2019 Surgeon - Lary GARDNER Access working well [...]
--- OUTSIDE RECORDS SUMMARY | 2021-11-25 10:55 | XMS_ITS | Encounter Summary ---
:1945 Author Organization [facility] Address [address] [place] [address] Care Team Providers Name Role Phone Unavailable Primary Care Provider Unavailable Encounter Details Date Type Department Care Team Description 12/09/2020 Treatment [facility] f Ernie Guzmán MD [address] [place] [address] [place], [place] [phone] (Wo rk) Social History Tobacco Use Types Packs/Day Years Used Date Smoking Tobacco: Unknown Comments: Smoking History Info:Patient n ot screened Sex Assigned at Date Recorded Not on file documented as of this encounter Miscellaneous Notes Dialysis Note - Ernie Pompa MD - 12/09/2020 10:05 AM CDT Date: Dec 09, 2020 Patient Name: Shaun Ocampo : 1945 Chart #: [id number] Sex: M This patient was personally seen [...] AM ) BP (sit): 134/63 AP(-) / RADIOLOGICAL METALLURGIST: 227/186 Pulse: 69 Chairside data as of [...] 09/18/2020 Access Flow 1432 > 2000 1138 LANDCARE OFFICER: Ernie Pompa MD LOCATION: [place] [phone] SCHEDULE: -- 2nd Shift ACCESS: EDW: kg. 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 06/10: Doing well overall, no new complaints, [...] Went to Urgent care -> ER in [place] yesterday,CT with R hydro but no obstructive [...] He had infiltration last week, dialyzed at [facility] on Sat and went well, [...] (09/23/20) Vascular Access Assessment: Type of access: [id number]/2019 Surgeon - Lary GARDNER Access working well [...]
--- OUTSIDE RECORDS SUMMARY | 2021-11-25 10:56 | XMS_ITS | Encounter Summary ---
:1945 Author Organization [facility] Address [address] [place] [address] Care Team Providers Name Role Phone Unavailable Primary Care Provider Unavailable Encounter Details Date Type Department Care Team Description 11/25/2020 Orders Only [facility] O f Ernie Guzmán MD [address] [place] [address] [place], [place] [phone] (Wo rk) Social History Tobacco Use [...] 11/26/2020 Unless otherwise specified, test(s) performed at: [facility], [address] [place] [address] POLITICAL THEORY PROFESSOR: Alec Payan M.D. For any questions, please call customer service at FREQUENCY:OTHER Resulting Agency Comment Specimen source: Blood Ernie Pompa MD LAB BLOOD ORDERABLES Performing Organization Address City/State/ZIP Code Phon e Number APS SPECTRA [facility] documented in this encounter Visit Diagnoses Not on filedocumented in this encounter
--- OUTSIDE RECORDS SUMMARY | 2021-11-25 10:56 | XMS_ITS | Encounter Summary ---
:1945 Author Organization [facility] Address [address] [place] [address] Care Team Providers Name Role Phone Unavailable Primary Care Provider Unavailable Encounter Details Date Type Department Care Team Description 10/07/2020 Orders [facility] O f Ernie Guzmán MD [address] [place] [address] [place], [place] [phone] (Wo rk) Social History Tobacco Use [...] 10/09/2020 Unless otherwise specified, test(s) performed at: [facility], [address] [place] [address] CASSANDRA CONSULTANT: Alec Payan M.D. For any questions, please call customer service at FREQUENCY:OTHER Resulting Agency Comment Specimen source: Blood Ernie Pompa MD LAB BLOOD ORDERABLES Performing Organization Address City/State/ZIP Code Phon e Number APS SPECTRA [facility] documented in this encounter Visit Diagnoses Not on filedocumented in this encounter
--- OUTSIDE RECORDS SUMMARY | 2021-11-25 10:56 | XMS_ITS | Encounter Summary ---
:1945 Author Organization [facility] Address [address] [place] [address] Care Team Providers Name Role Phone Unavailable Primary Care Provider Unavailable Encounter Details Date Type Department Care Team Description 10/14/2020 Orders [facility] O f Ernie Guzmán MD [address] [place] [address] [place], [place] [phone] (Wo rk) Social History Tobacco Use [...] 10/15/2020 Unless otherwise specified, test(s) performed at: [facility], [address] [place] [address] SCROLL SAW OPERATOR: Alec Payan M.D. For any questions, please call customer service at FREQUENCY:OTHER Resulting Agency Comment Specimen source: Blood Ernie Pompa MD LAB BLOOD ORDERABLES Performing Organization Address City/State/ZIP Code Phon e Number APS SPECTRA [facility] documented in this encounter Visit Diagnoses Not on filedocumented in this encounter
--- OUTSIDE RECORDS SUMMARY | 2021-11-25 10:56 | XMS_ITS | Encounter Summary ---
:1945 Author Organization [facility] Address [address] [place] [address] Care Team Providers Name Role Phone Unavailable Primary Care Provider Unavailable Encounter Details Date Type Department Care Team Description 11/18/2020 Treatment [facility] O Ernie Gómze MD [address] [place] [address] [place], [place] [phone] [phone] (Wo rk) Social History Tobacco Use Types Packs/Day Years Used Date Smoking Tobacco: Unknown Comments: Smoking History Info:Patient n ot screened Sex Assigned at Date Recorded Not on file documented as of this encounter Miscellaneous Notes Dialysis Note - Ernie Pompa MD - 11/18/2020 9:48 AM CDT Date: Nov 18, 2020 Patient Name: Shaun Ocampo : 1945 Chart #: [id number] Sex: M This patient was personally seen [...] 1.5 mcg ORAL Every Treatment 11/02/2020 11/01/2021 EMPLOYMENT LEGAL ASSISTANT: Ernie Pompa MD LOCATION: [phone] SCHEDULE: -- 2nd Shift EDW: kg. DIALYZER: [...] for ureteral ?tumor early next month in [place]. 06/10: Doing well overall, no new complaints, [...] Went to Urgent care -> ER in [place] yesterday,CT with R hydro but no obstructive [...] prescription. Vascular Access Assessment Type of access: [email or web address]/2019 Surgeon Annita KUMARW Access working well Anemia [...] above goal. Intact PTH is above goal. Technical Solution Architect will adjust binders and vitamin D [...]
--- OUTSIDE RECORDS SUMMARY | 2021-11-25 10:56 | XMS_ITS | Encounter Summary ---
:1945 Author Organization [facility] Address [address] [place] [address] Care Team Providers Name Role Phone Unavailable Primary Care Provider Unavailable Encounter Details Date Type Department Care Team Description 09/23/2020 Orders [facility] O f Ernie Guzmán MD [address] [place] [address] [place], [place] [phone] (Wo rk) Social History Tobacco Use [...] 09/24/2020 Unless otherwise specified, test(s) performed at: [facility], [address] [place] [address] TECHNICAL INTERNSHIP: Alec Payan M.D. For any questions, please call customer service at FREQUENCY:MONTHLY Resulting Agency Comment Specimen source: Plasma Ernie Pompa MD LAB BLOOD ORDERABLES Performing Organization Address City/[facility]/ZIP Code Phon e Number APS SPECTRA [...] 09/24/2020 Unless otherwise specified, test(s) performed at: [facility], [address] [place] [address] TECHNICAL INTERNSHIP: Alec Payan M.D. For any questions, please call customer service at FREQUENCY:MONTHLY Resulting Agency Comment Specimen source: Blood Ernie Pompa MD LAB BLOOD ORDERABLES Performing Organization Address City/[facility] Phon e Number APS SPECTRA [...] BANK TEST ORDERABL ES Performing Organization Address City/[facility]/ZIP Code Phon e Number APS SPECTRA [...] 09/24/2020 Unless otherwise specified, test(s) performed at: [facility], [address] [place] [address] TECHNICAL INTERNSHIP: Alec Payan M.D. For any questions, please call customer service at FREQUENCY:MONTHLY Resulting Agency Comment Specimen source: Serum Ernie Pompa MD LAB BLOOD ORDERABLES Performing Organization Address City/State/ZIP Code Phon e Number APS SPECTRA [facility] documented in this encounter Visit Diagnoses Not on filedocumented in this encounter
--- OUTSIDE RECORDS SUMMARY | 2021-11-25 10:56 | XMS_ITS | Encounter Summary ---
:1945 Author Organization [facility] Address [address] [place] [address] Care Team Providers Name Role Phone Unavailable Primary Care Provider Unavailable Encounter Details Date Type Department Care Team Description 11/04/2020 Orders [facility] O f Ernie Guzmán MD [address] [place] [address] [place], [place] [phone] (Wo rk) Social History Tobacco Use [...] 11/05/2020 Unless otherwise specified, test(s) performed at: [facility], [address] [place] [address] DIRECTOR AUTO: Alec Payan M.D. For any questions, please call customer service at FREQUENCY:OTHER Resulting Agency Comment Specimen source: Blood Ernie Pompa MD LAB BLOOD ORDERABLES Performing Organization Address City/State/ZIP Code Phon e Number APS SPECTRA [facility] documented in this encounter Visit Diagnoses Not on filedocumented in this encounter
--- OUTSIDE RECORDS SUMMARY | 2021-11-25 10:56 | XMS_ITS | Encounter Summary ---
:1945 Author Organization [facility] Address [address] [place] [address] Care Team Providers Name Role Phone Unavailable Primary Care Provider Unavailable Encounter Details Date Type Department Care Team Description 10/21/2020 Orders [facility] O f Ernie Guzmán MD [address] [place] [address] [place], [place] [phone] (Wo rk) Social History Tobacco Use [...] Organization Address City/[facility]/ZIP Code Phon e Number [place] IMMUNO CHEMISTRY (10/21/2020) athologist Signature Hep B Surface Negative Negative APS SPECTRA Ag [facility] Specimen (Source) Anatomical Collection Method Collection Time Re ceived Time Location / / Volume Laterality 10/21/2020 10/22/2020 9:40 PM CDT Narrative APS SPECTRA [facility] - 10/23/2020 Unless otherwise specified, test(s) performed at: [facility], [address] [place], [place] [id number] PAINTER BARREL: Alec Payan M.D. For any questions, please call customer service at FREQUENCY:MONTHLY Resulting Agency Comment Specimen source: Serum Ernie Pompa MD LAB BLOOD ORDERABLES Performing Organization Address [facility] Phon e Number APS SPECTRA [facility] (ABNORMAL) Spectrae Chemistry (10/21/2020) athologist [facility] PTH 785 (H) 16 - 80 APS SPECTRA pg/mL [facility] Specimen (Source) Anatomical Collection Method Collection Time Re ceived Time Location / / Volume Laterality 10/21/2020 10/22/2020 8:05 PM CDT Narrative APS SPECTRA [facility] - 10/23/2020 Unless otherwise specified, test(s) performed at: [facility], [address] [place] [address] PAINTER BARREL: Alec Payan M.D. For any questions, please call customer service at FREQUENCY:MONTHLY Resulting Agency Comment Specimen source: Plasma Ernie Pompa MD LAB BLOOD ORDERABLES Performing Organization Address City/[facility] Phon e Number APS SPECTRA [facility] HD KINETICS (10/21/2020) athologist Signature % Urea 76 65 - 80 % APS SPECTRA Reduction [facility] Specimen (Source) Anatomical Collection Method Collection Time Re ceived Time Location / / Volume Laterality 10/21/2020 10/22/2020 9:40 PM CDT Narrative APS SPECTRA [facility] - 10/23/2020 Unless otherwise specified, test(s) performed at: [facility], [address] [place] [address] PAINTER BARREL: Alec Pyaan M.D. For any questions, please call customer service at FREQUENCY:MONTHLY Resulting Agency Comment Specimen source: Serum Ernie Pompa MD LAB BLOOD ORDERABLES Performing Organization Address City/State/ZIP Code Phon e Number APS SPECTRA [facility] (ABNORMAL) Spectrae Chemistry (10/21/2020) [facility] gist Method Time Signature BUN 45 [...] 10/23/2020 Unless otherwise specified, test(s) performed at: [facility], [address] [place] [address] PAINTER BARREL: Alec Payan M.D. For any questions, please [...] 10/23/2020 Unless otherwise specified, test(s) performed at: [facility], [address] [place] [address] PAINTER BARREL: Alec Payan M.D. For any questions, please [...] 10/22/2020 Unless otherwise specified, test(s) performed at: [facility], [address] [place] [address] PAINTER BARREL: Alec Payan M.D. For any questions, please call customer service at FREQUENCY:MONTHLY Resulting Agency Comment Specimen source: Plasma Ernie Pompa MD LAB BLOOD ORDERABLES Performing Organization Address City/State/[facility] Code Phon e Number APS SPECTRA [facility] documented in this encounter Visit Diagnoses Not on filedocumented in this encounter
--- OUTSIDE RECORDS SUMMARY | 2021-11-25 10:56 | XMS_ITS | Encounter Summary ---
:1945 Author Organization [facility] Address [address] [place] [address] Care Team Providers Name Role Phone Unavailable Primary Care Provider Unavailable Encounter Details Date Type Department Care Team Description 10/21/2020 Treatment [facility] O Ernie Gómez MD [address] [place] [address] [place], [place] [phone] (Wo rk) Social History Tobacco Use Types Packs/Day Years Used Date Smoking Tobacco: Unknown Comments: Smoking History Info:Patient n ot screened Sex Assigned at Date Recorded Not on file documented as of this encounter Miscellaneous Notes Dialysis Note - Ernie Pompa MD - 10/21/2020 12:00 PM CDT Date: Oct 21, 2020 Patient Name: Shaun Ocampo : 1945 Chart #: [id number] Sex: M This patient was personally seen [...] Every 2 weeks During Dialysis 09/30/2020 09/29/2021 TYPESETTER PERFORATOR OPERATOR: Ernie Pompa MD LOCATION: [phone] SCHEDULE: -W- 2nd Shift EDW: kg. 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 06/10: Doing well overall, no new complaints, [...] Went to Urgent care -> ER in [place] yesterday,CT with R hydro but no obstructive [...] He had infiltration last week, dialyzed at [facility] on Sat and went well, access [...] prescription. Vascular Access Assessment Type of access: [id number]/2019 Surgeon - Lray KUMARW Access working well Anemia Assessment HEMOGLOBIN [...] at goal. Intact PTH is above goal. Gum Mixer will adjust binders and vitamin D per [...]
--- OUTSIDE RECORDS SUMMARY | 2021-11-25 10:56 | XMS_ITS | Encounter Summary ---
:1945 Author Organization [facility] Address [address] [place] [address] Care Team Providers Name Role Phone Unavailable Primary Care Provider Unavailable Encounter Details Date Type Department Care Team Description 12/02/2020 Orders Only [facility] O f Ernie Guzmán MD [address] [place] [address] [place], [place] [phone] (Wo rk) Social History Tobacco Use [...] 12/03/2020 Unless otherwise specified, test(s) performed at: [facility], [address] [place] [address] MILLER KILN DRIED SALT: Alec Payan M.D. For any questions, please call customer service at FREQUENCY:OTHER Resulting Agency Comment Specimen source: Blood Ernie Pompa MD LAB BLOOD ORDERABLES Performing Organization Address City/State/ZIP Code Phon e Number APS SPECTRA [facility] documented in this encounter Visit Diagnoses Not on filedocumented in this encounter
--- OUTSIDE RECORDS SUMMARY | 2021-11-25 10:56 | XMS_ITS | Encounter Summary ---
:1945 Author Organization [facility] Address [address] [place] [address] Care Team Providers Name Role Phone Unavailable Primary Care Provider Unavailable Encounter Details Date Type Department Care Team Description 10/07/2020 Treatment [facility] O f Ernie Guzmán MD [address] [place] [address] [place], [place] [phone] (Wo rk) Social History Tobacco Use Types Packs/Day Years Used Date Smoking Tobacco: Unknown Comments: Smoking History Info:Patient n ot screened Sex Assigned at Date Recorded Not on file documented as of this encounter Miscellaneous Notes Dialysis Note - Ernie Pompa MD - 10/07/2020 10:59 AM CDT Date: Oct 07, 2020 Patient Name: Shaun Ocamop : 1945 Chart #: [id number] Sex: M This patient was personally seen [...] AM ) BP (sit): 125/63 AP(-) / ROLLER COASTER DESIGNER: 232/178 Pulse: 70 Chairside data as of [...] Every 2 weeks During Dialysis 09/30/2020 09/29/2021 CLINICAL RESEARCH SPEC: Ernie Pompa MD LOCATION: [facility] [phone] SCHEDULE: M-W- 2nd Shift ACCESS: EDW: kg. [...] for ureteral ?tumor early next month in [place]. 06/10: Doing well overall, no new complaints, [...] Went to Urgent care -> ER in [place] yesterday,CT with R hydro but no obstructive [...] (07/22/20) Vascular Access Assessment: Type of access: Izsiuvk39/2019 Surgeon - Lary KUMARW Access working well [...]
--- OUTSIDE RECORDS SUMMARY | 2021-11-25 10:56 | XMS_ITS | Encounter Summary ---
:1945 Author Organization [facility] Address [address] [place] [address] Care Team Providers Name Role Phone Unavailable Primary Care Provider Unavailable Encounter Details Date Type Department Care Team Description 09/25/2020 Orders Only [facility] O f Ernie Guzmán MD [address] [place] [address] [place], [place] [phone] (Wo rk) Social History Tobacco Use [...] 09/26/2020 Unless otherwise specified, test(s) performed at: [facility], [address] [place] [address] LADLE HANDLER: Alec Payan M.D. For any questions, please call customer service at FREQUENCY:OTHER Resulting Agency Comment Specimen source: Serum Ernie Pompa MD LAB BLOOD ORDERABLES Performing Organization Address City/State/ZIP Code Phon e Number APS SPECTRA [facility] documented in this encounter Visit Diagnoses Not on filedocumented in this encounter
--- OUTSIDE RECORDS SUMMARY | 2021-11-25 10:56 | XMS_ITS | Encounter Summary ---
:1945 Author Organization [facility] Address [address] [place] [address] Care Team Providers Name Role Phone Unavailable Primary Care Provider Unavailable Encounter Details Date Type Department Care Team Description 09/30/2020 [facility] O f Ernie Guzmán MD [address] [place] [address] [place], [place] [phone] (Wo rk) Social History Tobacco Use [...] Provider LAB BLOOD ORDERABLES Performing Organization Address [facility] Code Phon e Number [place] (ABNORMAL) HEMATOLOGY [...] 10/02/2020 Unless otherwise specified, test(s) performed at: [facility], [address] [place], [place] [address] FIELD CROP FARM WORKER: Alec Payan M.D. For any questions, please call customer service at FREQUENCY:OTHER Resulting Agency Comment Specimen source: Blood Ernie Pompa MD LAB BLOOD ORDERABLES Performing Organization Address [facility] Phon e Number APS SPECTRA [facility] HD KINETICS (09/30/2020) P athologist Signature % Urea 77 65 - 80 % APS SPECTRA Reduction [facility] Specimen (Source) Anatomical Collection Method Collection Time Re ceived Time Location / / Volume Laterality 09/30/2020 10/01/2020 5:40 PM CDT Narrative [facility]PS SPECTRA [facility] - 10/01/2020 Unless otherwise specified, test(s) performed at: [facility], [address] [place] [address] FIELD CROP FARM WORKER: Alec Payan M.D. For any questions, please call customer service at FREQUENCY:OTHER Resulting Agency Comment Specimen source: Serum Ernie Pompa MD LAB BLOOD ORDERABLES Performing Organization Address [facility] Phon e Number APS SPECTRA [facility] (ABNORMAL) Spectrae Chemistry (09/30/2020) P athologist Signature BUN 44 (H) 6 - 19 APS SPECTRA mg/dL [facility] Specimen (Source) Anatomical Collection Method Collection Time Re ceived Time Location / / Volume Laterality 09/30/2020 10/01/2020 5:39 PM CDT Narrative APS SPECTRA [facility] - 10/01/2020 Unless otherwise specified, test(s) performed at: [facility], [address] [place] [address] FIELD CROP FARM WORKER: Alec Payan M.D. For any questions, please call customer service at FREQUENCY:OTHER Resulting Agency Comment Specimen source: Serum Ernie Pompa MD LAB BLOOD ORDERABLES Performing Organization Address City/[facility]/ZIP [facility] Phon e Number APS SPECTRA [facility] POST CHEMISTRY (09/30/2020) P athologist Signature BUN Post 10 6 - 19 APS SPECTRA Dialysis mg/dL [facility] Specimen (Source) Anatomical Collection Method Collection Time Re ceived Time Location / / Volume Laterality 09/30/2020 10/01/2020 12:4 3 PM CDT Narrative APS SPECTRA [facility] - 10/01/2020 Unless otherwise specified, test(s) performed at: [facility], [address] [place] [address] FIELD CROP FARM WORKER: Alec Payan M.D. For any questions, please call customer service at FREQUENCY:OTHER Resulting Agency Comment Specimen source: Plasma Ernie Pompa MD LAB BLOOD ORDERABLES Performing Organization Address City/[facility]/ZIP [facility] Phon e Number APS SPECTRA [facility] documented in this encounter Visit Diagnoses Not on filedocumented in this encounter
--- OUTSIDE RECORDS SUMMARY | 2021-11-25 10:56 | XMS_ITS | Encounter Summary ---
:1945 Author Organization [facility] Address [address] [place] [address] Care Team Providers Name Role Phone Unavailable Primary Care Provider Unavailable Encounter Details Date Type Department Care Team Description 09/23/2020 Treatment [facility] f Ernie Guzmán MD [address] [place] [address] [place], [place] [address] [phone] (Wo rk) Social History Tobacco Use Types Packs/Day Years Used Date Smoking Tobacco: Unknown Comments: Smoking History Info:Patient n ot screened Sex Assigned at Date Recorded Not on file documented as of this encounter Miscellaneous Notes Dialysis Note - Ernie Pompa MD - 09/23/2020 10:44 AM CDT Date: Sep 23, 2020 Patient Name: Shaun Ocampo : 1945 Chart #: [id number] Sex: M This patient was personally seen [...] AM ) BP (sit): 103/52 AP(-) / HEALTHCARE RECEPTIONIST: 235/188 Pulse: 72 Chairside data as of [...] Every 2 weeks During Dialysis 09/16/2020 09/15/2021 NURSE PRN: Ernie Pompa MD LOCATION: [phone] SCHEDULE: Aravind-- 2nd Shift EDW: kg. DIALYZER: [...] for ureteral ?tumor early next month in [place]. 06/10: Doing well overall, no new complaints, [...] Went to Urgent care -> ER in [place] yesterday,CT with R hydro but no obstructive [...] virtually with video during the COVID-19 pandemic. Shuan is doing well. He has same chronic [...] prescription. Vascular Access Assessment Type of access: [id number]/2019 Surgeon - Lary GARDNER Access working well [...] at goal. Intact PTH is above goal. Research And Evaluation Manager will adjust binders and vitamin D [...]
--- OUTSIDE RECORDS SUMMARY | 2021-11-25 10:56 | XMS_ITS | Encounter Summary ---
:1945 Author Organization [facility] Address [address] [place] [address] Care Team Providers Name Role Phone Unavailable Primary Care Provider Unavailable Encounter Details Date Type Department Care Team Description 11/18/2020 Orders Only [facility] O f Ernie Guzmán MD [address] [place] [address] [place], [place] [phone] (Wo rk) Social History Tobacco Use [...] 11/19/2020 Unless otherwise specified, test(s) performed at: [facility], [address] [place] [address] DATABASE ADMINISTRATION MANAGER: Alec Payan M.D. For any questions, please call customer service at FREQUENCY:MONTHLY Resulting Agency Comment Specimen source: Plasma Ernie Pompa MD LAB BLOOD ORDERABLES Performing Organization Address City/[facility] Code Phon e Number APS SPECTRA [facility] IMMUNO CHEMISTRY (11/18/2020) P athologist Signature Hep B Surface Negative Negative APS SPECTRA Ag [facility] Specimen (Source) Anatomical Collection Method Collection Time Re ceived Time Location / / Volume Laterality 11/18/2020 11/19/2020 3:22 PM CDT Narrative APS SPECTRA [facility] - 11/19/2020 Unless otherwise specified, test(s) performed at: [facility], [address] [place] [address] DATABASE ADMINISTRATION MANAGER: Alec Payan M.D. For any questions, [...] 11/19/2020 Unless otherwise specified, test(s) performed at: [facility], [address] [place] [address] DATABASE ADMINISTRATION MANAGER: Alec Payan M.D. For any questions, please call customer service at FREQUENCY:MONTHLY Resulting Agency Comment Specimen source: Blood Ernie Pompa MD LAB BLOOD ORDERABLES Performing Organization Address City/State/[facility] Code Phon e Number APS SPECTRA [facility] (ABNORMAL) Spectrae Chemistry (11/18/2020) P athologist Signature PTH 969 (H) 16 - 80 APS SPECTRA pg/mL [facility] Specimen (Source) Anatomical Collection Method Collection Time Re ceived Time Location / / Volume Laterality 11/18/2020 11/19/2020 5:01 PM CDT Narrative APS SPECTRA [facility] - 11/19/2020 Unless otherwise specified, test(s) performed at: [facility], [address] [place] [address] DATABASE ADMINISTRATION MANAGER: Alec Payan M.D. For any questions, please call customer service at FREQUENCY:MONTHLY Resulting Agency Comment Specimen source: Plasma Ernie Pompa MD LAB BLOOD ORDERABLES Performing Organization Address City/State/ZIP Code Phon e Number APS SPECTRA [facility] (ABNORMAL) Spectrae Chemistry (11/18/2020) [employer] gist Method Time Signature BUN 51 (H) [...] 11/19/2020 Unless otherwise specified, test(s) performed at: [facility], [address] [place] [address] DATABASE ADMINISTRATION MANAGER: Alec Payan M.D. For any questions, please call customer service at FREQUENCY:MONTHLY Resulting Agency Comment Specimen source: Serum Ernie Pompa MD LAB BLOOD ORDERABLES Performing Organization Address City/State/ZIP Code Phon e Number APS SPECTRA [facility] documented in this encounter Visit Diagnoses Not on filedocumented in this encounter
--- OUTSIDE RECORDS SUMMARY | 2021-11-25 10:56 | XMS_ITS | Encounter Summary ---
:1945 Author Organization [facility] Address [address] [place] [address] Care Team Providers Name Role Phone Unavailable Primary Care Provider Unavailable Encounter Details Date Type Department Care Team Description 11/11/2020 Orders Only [facility] O f Ernie Guzmán MD [address] [place] [address] [place], [place] [phone] (Wo rk) Social History Tobacco Use [...] 11/12/2020 Unless otherwise specified, test(s) performed at: [facility], [address] [place] [address] COMMUNITY HEALTH ADVISOR: Alec Payan M.D. For any questions, please call customer service at FREQUENCY:OTHER Resulting Agency Comment Specimen source: Blood Ernie Pompa MD LAB BLOOD ORDERABLES Performing Organization Address City/State/ZIP Code Phon e Number APS SPECTRA [facility] documented in this encounter Visit Diagnoses Not on filedocumented in this encounter
--- OUTSIDE RECORDS SUMMARY | 2021-11-25 10:56 | XMS_ITS | Encounter Summary ---
:1945 Author Organization [facility] Address [address] [place] [address] Care Team Providers Name Role Phone Unavailable Primary Care Provider Unavailable Encounter Details Date Type Department Care Team Description 11/11/2020 Treatment [facility] O f Ernie Guzmán MD [address] [place] [address] [place], [place] [address] [phone] (Wo rk) Social History Tobacco Use Types Packs/Day Years Used Date Smoking Tobacco: Unknown Comments: Smoking History Info:Patient n ot screened Sex Assigned at Date Recorded Not on file documented as of this encounter Miscellaneous Notes Dialysis Note - Ernie Pompa MD - 11/11/2020 9:40 AM CDT Date: Nov 11, 2020 Patient Name: Shaun Ocampo : 1945 Chart #: [id number] Sex: M This patient was personally seen [...] AM ) BP (sit): 128/53 AP(-) / SOLAR SALES ASSESSOR: 223/184 Pulse: 75 Chairside data as of [...] 08/21/2020 Access Flow > 2000 [id number] JEWEL HOLE GAUGER: Ernie Pompa MD LOCATION: [place] [phone] SCHEDULE: -W- 2nd Shift ACCESS: EDW: kg. 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 06/10: Doing well overall, no new complaints, [...] Went to Urgent care -> ER in [place] yesterday,CT with R hydro but no obstructive [...] (08/19/20) Vascular Access Assessment: Type of access: [id number]/2019 Surgeon - Lary GARDNER Access working well [...]
--- OUTSIDE RECORDS SUMMARY | 2021-11-25 10:56 | XMS_ITS | Encounter Summary ---
:1945 Author Organization [facility] Address [address] [place] [address] Care Team Providers Name Role Phone Unavailable Primary Care Provider Unavailable Encounter Details Date Type Department Care Team Description 10/28/2020 Orders Only [facility] O f Ernie Guzmán MD [phone] [place] [address] [place], [place] [phone] (Wo rk) Social History Tobacco Use [...] 10/29/2020 Unless otherwise specified, test(s) performed at: [facility], [address] [place] [address] BOOMBOAT OPERATOR: Alec Payan M.D. For any questions, please call customer service at FREQUENCY:OTHER Resulting Agency Comment Specimen source: Blood Ernie Pompa MD LAB BLOOD ORDERABLES Performing Organization Address City/State/ZIP Code Phon e Number APS SPECTRA [facility] documented in this encounter Visit Diagnoses Not on filedocumented in this encounter
--- OUTSIDE RECORDS SUMMARY | 2021-11-25 10:57 | XMS_ITS | Encounter Summary ---
:1945 Author Organization [facility] Address [address] [place] [address] Care Team Providers Name Role Phone Unavailable Primary Care Provider Unavailable Encounter Details Date Type Department Care Team Description 04/15/2020 Orders [facility] O f Ernie Guzmán MD [address] [place] [address] [place], [place] [phone] (Wo rk) Social History Tobacco Use [...] / Volume Laterality 04/15/2020 04/16/2020 9:36 AM DIRECTOR OF STUDENT FINANCIAL AID Narrative APS SPECTRA [facility] - 04/16/2020 Unless otherwise specified, test(s) performed at: [facility], [address] [place] [address] RATCHET SETTER: Alec Payan M.D. For any questions, please call customer service at FREQUENCY:OTHER Resulting Agency Comment Specimen source: Blood Ernie Pompa MD LAB BLOOD ORDERABLES Performing Organization Address City/State/ZIP Code Phon e Number APS SPECTRA [facility] documented in this encounter Visit Diagnoses Not on filedocumented in this encounter
--- OUTSIDE RECORDS SUMMARY | 2021-11-25 10:57 | XMS_ITS | Encounter Summary ---
:1945 Author Organization [facility] Address [address] [place] [address] Care Team Providers Name Role Phone Unavailable Primary Care Provider Unavailable Encounter Details Date Type Department Care Team Description 2020 Treatment [facility] O f Enrie Guzmán MD [address] [place] [address] [place], [place] [phone] (Wo rk) Social History Tobacco Use Types Packs/Day Years Used Date Smoking Tobacco: Unknown Comments: Smoking History Info:Patient n ot screened Sex Assigned at Date Recorded Not on file documented as of this encounter Miscellaneous Notes Dialysis Note - Ernie Pompa MD - 2020 10:59 AM CDT Date: 2020 Patient Name: Shaun Ocampo : 1945 Chart #: [id number] Sex: M This patient was personally seen for a basic visit as part of routine weekly dialysis care. A reviewof the dialysis treatment, blood pressure, estimated dry weight and recent lab values was made. These were discussed with the patient and staff as necessary. HEATING REPAIR TECHNICIAN: Ernie Pompa MD LOCATION: [phone] SCHEDULE: M-W-F 2nd Shift ACCESS: EDW: kg. 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 06/10: Doing well overall, no new [...] Went to Urgent care -> ER in [place] yesterday,CT with R hydro but no obstructive [...] (05/20/20) Vascular Access Assessment: Type of access: [id number]/2019 Surgeon - Lary GARDNER Access working well Impression and Plan No changes in prescription Discussed fluid gains, possible need for increased time on HD but he really wants to avoid more [id number]. Discussed possible need for extra treatments occasionally [...]
--- OUTSIDE RECORDS SUMMARY | 2021-11-25 10:57 | XMS_ITS | Encounter Summary ---
:1945 Author Organization [facility] Address [address] [place] [address] Care Team Providers Name Role Phone Unavailable Primary Care Provider Unavailable Encounter Details Date Type Department Care Team Description 05/13/2020 Orders Only [facility] O f Ernie Guzmán MD [address] [place] [address] [place], [place] [phone] (Wo rk) Social History Tobacco Use [...] / Volume Laterality 05/13/2020 05/14/2020 3:41 PM DATABASE MANAGER Narrative APS SPECTRA [facility] - 05/14/2020 Unless otherwise specified, test(s) performed at: [facility], [address] [place] [address] VENEER SUPERVISOR: Alec Payan M.D. For any questions, please call customer service at FREQUENCY:OTHER Resulting Agency Comment Specimen source: Blood Ernie Pompa MD LAB BLOOD ORDERABLES Performing Organization Address City/State/ZIP Code Phon e Number APS SPECTRA [facility] documented in this encounter Visit Diagnoses Not on filedocumented in this encounter
--- OUTSIDE RECORDS SUMMARY | 2021-11-25 10:57 | XMS_ITS | Encounter Summary ---
:1945 Author Organization [facility] Address [address] [place] [address] Care Team Providers Name Role Phone Unavailable Primary Care Provider Unavailable Encounter Details Date Type Department Care Team Description 07/01/2020 Treatment [facility] O f Ernie Guzmán MD [address] [place] [address] [place], [place] [phone] [phone] (Wo rk) Social History Tobacco Use Types Packs/Day Years Used Date Smoking Tobacco: Unknown Comments: Smoking History Info:Patient n ot screened Sex Assigned at Date Recorded Not on file documented as of this encounter Miscellaneous Notes Dialysis Note - Ernie Pompa MD - 07/01/2020 11:18 AM CDT Date: Jul 01, 2020 Patient Name: Sahun Ocampo : 1945 Chart #: [id number] Sex: M This patient was personally seen [...] AM ) BP (sit): 115/74 AP(-) / SOURCING MANAGER: 251/198 Pulse: 66 Chairside data as of [...] Every 2 weeks During Dialysis 06/24/2020 06/23/2021 POLICE CADET: Ernie Pompa MD LOCATION: [phone] SCHEDULE: M-W-F 2nd Shift EDW: kg. DIALYZER: HD DURATION: NEEDLE SIZE: ANTICOAG: BATH: QB: ml/min QD: ml/min Subjective Tolerating dialysis well. 07/01: Doing well, feels great. Big problem is fluid gains, discussed in great detail again today. Having procedure for ureteral ?tumor early next month in [place]. 06/10: Doing well overall, no new complaints, [...] Went to Urgent care -> ER in [place] yesterday,CT with R hydro but no obstructive [...] prescription. Vascular Access Assessment Type of access: [id number]/2019 Surgeon - Lary KUMARW Access working well [...] at goal. Intact PTH is above goal. Rolled Oats Mill Operator will adjust binders and vitamin D [...] on dialysis. Schedule UF run extra at [place] when available. Hold Hep day before and [...]
--- OUTSIDE RECORDS SUMMARY | 2021-11-25 10:57 | XMS_ITS | Encounter Summary ---
:1945 Author Organization [facility] Address [address] [place] [address] Care Team Providers Name Role Phone Unavailable Primary Care Provider Unavailable Encounter Details Date Type Department Care Team Description 09/09/2020 Orders [facility] O f Ernie Guzmán MD [address] [place] [address] [place], [place] [phone] (Wo rk) Social History Tobacco Use [...] 09/11/2020 Unless otherwise specified, test(s) performed at: [facility], [address] [place] [address] CARDROOM PLASTIC CARD GRADER: Alec Payan M.D. For any questions, please call customer service at FREQUENCY:OTHER Resulting Agency Comment Specimen source: Blood Ernie Pompa MD LAB BLOOD ORDERABLES Performing Organization Address City/State/ZIP Code Phon e Number APS SPECTRA [facility] documented in this encounter Visit Diagnoses Not on filedocumented in this encounter
--- OUTSIDE RECORDS SUMMARY | 2021-11-25 10:57 | XMS_ITS | Encounter Summary ---
:1945 Author Organization [facility] Address [address] [place] [address] Care Team Providers Name Role Phone Unavailable Primary Care Provider Unavailable Encounter Details Date Type Department Care Team Description 08/19/2020 Treatment [facility] O f Ernie Guzmán MD [address] [place] [address] [place], [place] [phone] (Wo rk) Social History Tobacco Use Types Packs/Day Years Used Date Smoking Tobacco: Unknown Comments: Smoking History Info:Patient n ot screened Sex Assigned at Date Recorded Not on file documented as of this encounter Miscellaneous Notes Dialysis Note - Ernie Pompa MD - 08/19/2020 12:37 PM CDT Date: Aug 19, 2020 Patient Name: Shaun Ocampo : 1945 Chart #: [id number] Sex: M This patient was personally seen [...] PM ) BP (sit): 110/40 AP(-) / WHITE SPOOLER: 250/194 Pulse: 67 Chairside data as of [...] Every 4 weeks During Dialysis 08/19/2020 08/18/2021 STATISTICAL METHODS TEACHER: Ernie Pompa MD LOCATION: [phone] SCHEDULE: M-W- 2nd Shift EDW: kg. DIALYZER: [...] for ureteral ?tumor early next month in [place]. 06/10: Doing well overall, no new complaints, [...] Went to Urgent care -> ER in [place] yesterday,CT with R hydro but no obstructive [...] He had infiltration last week, dialyzed at [facility] on Sat and went well, [...] prescription. Vascular Access Assessment Type of access: [id number]/2019 Surgeon - Lary GARDNER Access working well [...] above goal. Intact PTH is above goal. Inorganic Chemistry Professor will adjust binders and vitamin D per [...]
--- OUTSIDE RECORDS SUMMARY | 2021-11-25 10:57 | XMS_ITS | Encounter Summary ---
:1945 Author Organization [facility] Address [address] [place] [address] Care Team Providers Name Role Phone Unavailable Primary Care Provider Unavailable Encounter Details Date Type Department Care Team Description 06/10/2020 Orders Only [facility] O f Ernie Guzmán MD [address] [place] [address] [place], [place] [phone] (Wo rk) Social History Tobacco Use [...] 06/11/2020 Unless otherwise specified, test(s) performed at: [facility], [address] [place] [address] EXTRUSION DIE COORDINATOR: Alec Payan M.D. For any questions, please call customer service at FREQUENCY:OTHER Resulting Agency Comment Specimen source: Blood Ernie Pompa MD LAB BLOOD ORDERABLES Performing Organization Address City/State/ZIP Code Phon e Number APS SPECTRA [facility] documented in this encounter Visit Diagnoses Not on filedocumented in this encounter
--- OUTSIDE RECORDS SUMMARY | 2021-11-25 10:57 | XMS_ITS | Encounter Summary ---
:1945 Author Organization [facility] Address [address] [place] [address] Care Team Providers Name Role Phone Unavailable Primary Care Provider Unavailable Encounter Details Date Type Department Care Team Description 07/15/2020 Orders Only [facility] O f Ernie Guzmán MD [address] [place] [address] [place], [place] [phone] (Wo rk) Social History Tobacco Use [...] 07/16/2020 Unless otherwise specified, test(s) performed at: [facility], [address] [place] [address] PLASTIC EXTRUSION OPERATOR: Alec Payan M.D. For any questions, please call customer service at FREQUENCY:OTHER Resulting Agency Comment Specimen source: Blood Ernie Pompa MD LAB BLOOD ORDERABLES Performing Organization Address City/State/ZIP Code Phon e Number [facility] documented in this encounter Visit Diagnoses Not on filedocumented in this encounter
--- OUTSIDE RECORDS SUMMARY | 2021-11-25 10:57 | XMS_ITS | Encounter Summary ---
:1945 Author Organization [facility] Address [address] [place] [address] Care Team Providers Name Role Phone Unavailable Primary Care Provider Unavailable Encounter Details Date Type Department Care Team Description 04/01/2020 [facility] O f Ernie Guzmán MD [address] [place] [address] [place], [place] [phone] (Wo rk) Social History Tobacco Use [...] / Volume Laterality 04/01/2020 04/02/2020 2:28 PM MORTGAGE ACCOUNTING CLERK Narrative [facility] - 04/02/2020 Unless otherwise specified, test(s) performed at: [facility], [address] [place] [address] SENIOR WEB DEVELOPER: Alec Payan M.D. For any questions, please call customer service at FREQUENCY:OTHER Resulting Agency Comment Specimen source: Blood Ernie Pompa MD LAB BLOOD ORDERABLES Performing Organization Address City/State/ZIP Code Phon e Number [facility] documented in this encounter Visit Diagnoses Not on filedocumented in this encounter
--- OUTSIDE RECORDS SUMMARY | 2021-11-25 10:57 | XMS_ITS | Encounter Summary ---
:1945 Author Organization [facility] Address [address] [place] [address] Care Team Providers Name Role Phone Unavailable Primary Care Provider Unavailable Encounter Details Date Type Department Care Team Description 07/22/2020 [facility] O f Ernie Guzmán MD [address] [place] [address] [place], [place] [phone] (Wo rk) Social History Tobacco Use [...] 07/24/2020 Unless otherwise specified, test(s) performed at: [facility], [address] [place] [address] EXPERIMENTAL AIRCRAFT MECHANIC: Alec Payan M.D. For any questions, please call customer service at FREQUENCY:MONTHLY Resulting Agency Comment Specimen source: Plasma Ernie Pompa MD LAB BLOOD ORDERABLES Performing Organization Address City/[facility] Phon e Number [facility] IMMUNO CHEMISTRY (07/22/2020) P athologist Signature Hep B Surface Negative Negative [facility] Ag [facility] Specimen (Source) Anatomical Collection Method Collection Time Re ceived Time Location / / Volume Laterality 07/22/2020 07/23/2020 4:57 PM CDT Narrative [facility] - 07/23/2020 Unless otherwise specified, test(s) performed at: [facility], [address] [place] [address] EXPERIMENTAL AIRCRAFT MECHANIC: Alec Payan M.D. For any questions, please call customer service at FREQUENCY:MONTHLY Resulting Agency Comment Specimen source: Serum Ernie Pompa MD LAB BLOOD ORDERABLES Performing Organization Address City/State/ZIP Code Phon e Number [facility] (ABNORMAL) Spectrae Chemistry (07/22/2020) [facility] Method Time Signature BUN 58 [...] 07/23/2020 Unless otherwise specified, test(s) performed at: [facility], [address] [place], [place] [id number] EXPERIMENTAL AIRCRAFT MECHANIC: Alec Payan M.D. For any questions, please call customer service at FREQUENCY:MONTHLY Resulting Agency Comment Specimen source: Serum Ernie Pompa MD LAB BLOOD ORDERABLES Performing Organization Address City/[facility] Phon e Number [facility] (ABNORMAL) Spectrae Chemistry (07/22/2020) P athologist Signature PTH 1,020 (H) 16 - 80 [facility] pg/mL [facility] Specimen (Source) Anatomical Collection Method Collection Time Re ceived Time Location / / Volume Laterality 07/22/2020 07/23/2020 3:10 PM CDT Resulting Agency Comment Specimen source: Plasma Ernie Pompa MD LAB BLOOD ORDERABLES Performing Organization Address City/[facility] Code Phon e Number APS [...] 07/23/2020 Unless otherwise specified, test(s) performed at: [facility], [address] [place] [address] EXPERIMENTAL AIRCRAFT MECHANIC: Alec Payan M.D. For any questions, please call customer service at FREQUENCY:MONTHLY Resulting Agency Comment Specimen source: Blood Ernie Pompa MD LAB BLOOD ORDERABLES Performing Organization Address City/State/ZIP Code Phon e Number [facility] documented in this encounter Visit Diagnoses Not on filedocumented in this encounter
--- OUTSIDE RECORDS SUMMARY | 2021-11-25 10:57 | XMS_ITS | Encounter Summary ---
:1945 Author Organization [facility] Address [address] [place] [address] Care Team Providers Name Role Phone Unavailable Primary Care Provider Unavailable Encounter Details Date Type Department Care Team Description 05/27/2020 Treatment [facility] O Ernie Gómez MD [address] [place] [address] [place], [place] [phone] [phone] (Wo rk) Social History Tobacco Use Types Packs/Day Years Used Date Smoking Tobacco: Unknown Comments: Smoking History Info:Patient n ot screened Sex Assigned at Date Recorded Not on file documented as of this encounter Miscellaneous Notes Dialysis Note - Ernie Pompa MD - 05/27/2020 12:29 PM CST Date: May 27, 2020 Patient Name: Shaun Ocampo : 1945 Chart #: [id number] Sex: M This patient was personally seen [...] AM ) BP (sit): 122/55 AP(-) / UPKEEP MECHANIC: 234/221 Pulse: 72 Chairside data as of [...] Every 4 weeks During Dialysis 04/15/2020 04/14/2021 ENVIRONMENTAL SAMPLER: Ernie Pompa MD LOCATION: [phone] SCHEDULE: M-W-F 2nd Shift EDW: kg. DIALYZER: [...] Went to Urgent care -> ER in [place] yesterday,CT with R hydro but no obstructive [...] He had infiltration last week, dialyzed at [facility] on Sat and went well, [...] prescription. Vascular Access Assessment Type of access: [id number]/2019 Surgeon - Lary GARDNER Access working well [...] above goal. Intact PTH is above goal. Custom Ski Maker will adjust binders and vitamin D [...]
--- OUTSIDE RECORDS SUMMARY | 2021-11-25 10:57 | XMS_ITS | Encounter Summary ---
:1945 Author Organization [facility] Address [address] [place] [address] Care Team Providers Name Role Phone Unavailable Primary Care Provider Unavailable Encounter Details Date Type Department Care Team Description 05/27/2020 [facility] O f Ernie Guzmán MD [address] [place] [address] [address], [place] [phone] (Wo rk) Social History Tobacco Use [...] / Volume Laterality 05/27/2020 05/28/2020 6:29 PM WIRELESS CONSTRUCTION MANAGER Narrative [facility] - 05/28/2020 Unless otherwise specified, test(s) performed at: [facility], [address] [place] [address] CORRECTIONAL CLASSIFICATION COUNSELOR: Alec Payan M.D. For any questions, please call customer service at FREQUENCY:OTHER Resulting Agency Comment Specimen source: Blood Ernie Pompa MD LAB BLOOD ORDERABLES Performing Organization Address City/State/ZIP Code Phon e Number [facility] documented in this encounter Visit Diagnoses Not on filedocumented in this encounter
--- OUTSIDE RECORDS SUMMARY | 2021-11-25 10:57 | XMS_ITS | Encounter Summary ---
:1945 Author Organization [facility] Address [address] [place] [address] Care Team Providers Name Role Phone Unavailable Primary Care Provider Unavailable Encounter Details Date Type Department Care Team Description 04/22/2020 Treatment [facility] f Ernie Guzmán MD [address] [place] [address] [place], [place] [phone] [phone] (Wo rk) Social History Tobacco Use Types Packs/Day Years Used Date Smoking Tobacco: Unknown Comments: Smoking History Info:Patient n ot screened Sex Assigned at Date Recorded Not on file documented as of this encounter Miscellaneous Notes Dialysis Note - Ernie Pompa MD - 04/22/2020 11:52 AM CST Date: Apr 22, 2020 Patient Name: Shaun Ocampo : 1945 Chart #: [id number] Sex: M This patient was personally seen [...] AM ) BP (sit): 115/64 AP(-) / DISTILLERY MILLER: 258/208 Pulse: 67 Chairside data as of [...] Every 4 weeks During Dialysis 04/15/2020 04/14/2021 TANKER DRIVER: Ernie Pompa MD LOCATION: [phone] SCHEDULE: M-W-F 2nd Shift EDW: kg. DIALYZER: [...] prescription. Vascular Access Assessment Type of access: [id number]/2019 Surgeon - Lary GARDNER Access working well [...] above goal. Intact PTH is above goal. Agency Sales Representative will adjust binders and vitamin D [...]
--- OUTSIDE RECORDS SUMMARY | 2021-11-25 10:57 | XMS_ITS | Encounter Summary ---
:1945 Author Organization [facility] Address [address] [place] [address] Care Team Providers Name Role Phone Unavailable Primary Care Provider Unavailable Encounter Details Date Type Department Care Team Description 06/10/2020 Treatment [facility] O Ernie Gómez MD [address] [place] [address] [place], [place] [address] [phone] (Wo rk) Social History Tobacco Use Types Packs/Day Years Used Date Smoking Tobacco: Unknown Comments: Smoking History Info:Patient n ot screened Sex Assigned at Date Recorded Not on file documented as of this encounter Miscellaneous Notes Dialysis Note - Ernie Pompa MD - 06/10/2020 11:04 AM CDT Date: Jun 10, 2020 Patient Name: Shaun Ocampo : 1945 Chart #: [id number] Sex: M This patient was personally seen [...] AM ) BP (sit): 120/54 AP(-) / FINANCIAL SERVICES EDUCATION CONSULTANT: 219/180 Pulse: 69 Chairside data as of [...] Every 4 weeks During Dialysis 04/15/2020 04/14/2021 URBAN RENEWAL MANAGER: Ernie Pompa MD LOCATION: [phone] SCHEDULE: M-W-F 2nd Shift ACCESS: EDW: kg. [...] Went to Urgent care -> ER in [place] yesterday,CT with R hydro but no obstructive [...] He had infiltration last week, dialyzed at [facility] on Sat and went well, [...] (03/25/20) Vascular Access Assessment: Type of access: [id number]/2019 Surgeon - Lary GARDNER Access working well [...]
--- OUTSIDE RECORDS SUMMARY | 2021-11-25 10:57 | XMS_ITS | Encounter Summary ---
:1945 Author Organization [facility] Address [address] [place] [address] Care Team Providers Name Role Phone Unavailable Primary Care Provider Unavailable Encounter Details Date Type Department Care Team Description 04/29/2020 Orders [facility] O f Ernie Guzmán MD [address] [place] [address] [place], [place] [phone] (Wo rk) Social History Tobacco Use [...] / Volume Laterality 04/29/2020 05/01/2020 2:20 PM FLOOR SCRAPER Narrative [facility] - 05/01/2020 Unless otherwise specified, test(s) performed at: [facility], [address] [place] [address] SHIPFITTER HELPER: Alec Payan M.D. For any questions, please call customer service at FREQUENCY:OTHER Resulting Agency Comment Specimen source: Blood Ernie Pompa MD LAB BLOOD ORDERABLES Performing Organization Address City/State/ZIP Code Phon e Number [facility] documented in this encounter Visit Diagnoses Not on filedocumented in this encounter
--- OUTSIDE RECORDS SUMMARY | 2021-11-25 10:57 | XMS_ITS | Encounter Summary ---
:1945 Author Organization [facility] Address [address] [place] [address] Care Team Providers Name Role Phone Unavailable Primary Care Provider Unavailable Encounter Details Date Type Department Care Team Description 07/08/2020 [facility] O f Ernie Guzmán MD [address] [place] [address] [place], [place] [phone] (Wo rk) Social History Tobacco Use [...] 07/09/2020 Unless otherwise specified, test(s) performed at: [facility], [address] [place] [address] SENIOR MECHANICAL PROJECT MANAGER: Alec Payan M.D. For any questions, please call customer service at FREQUENCY:OTHER Resulting Agency Comment Specimen source: Blood Ernie Pompa MD LAB BLOOD ORDERABLES Performing Organization Address City/State/ZIP Code Phon e Number [facility] documented in this encounter Visit Diagnoses Not on filedocumented in this encounter
--- OUTSIDE RECORDS SUMMARY | 2021-11-25 10:57 | XMS_ITS | Encounter Summary ---
:1945 Author Organization [facility] Address [address] [place] [address] Care Team Providers Name Role Phone Unavailable Primary Care Provider Unavailable Encounter Details Date Type Department Care Team Description 06/17/2020 Orders [facility] O f Ernie Guzmán MD [address] [place] [address] [place], [place] [phone] (Wo rk) Social History Tobacco Use [...] 06/18/2020 Unless otherwise specified, test(s) performed at: [facility], [address] [place] [address] HAND FUNNEL COATER: Alec Payan M.D. For any questions, please call customer service at FREQUENCY:OTHER Resulting Agency Comment Specimen source: Blood Ernie Pompa MD LAB BLOOD ORDERABLES Performing Organization Address City/State/ZIP Code Phon e Number [facility] documented in this encounter Visit Diagnoses Not on filedocumented in this encounter
--- OUTSIDE RECORDS SUMMARY | 2021-11-25 10:57 | XMS_ITS | Encounter Summary ---
:1945 Author Organization [facility] Address [address] [place] [address] Care Team Providers Name Role Phone Unavailable Primary Care Provider Unavailable Encounter Details Date Type Department Care Team Description 04/22/2020 Orders [facility] O f Ernie Guzmán MD [address] [place] [address] [place], [place] [phone] (Wo rk) Social History Tobacco Use [...] / Volume Laterality 04/22/2020 04/23/2020 7:44 PM OVEN DRIER TENDER Narrative [facility] - 04/25/2020 Unless otherwise specified, test(s) performed at: [facility], [address] [place] [address] FOREST PATHOLOGIST: Alec Payan M.D. For any questions, [...] / Volume Laterality 04/22/2020 04/23/2020 3:15 PM OVEN DRIER TENDER Narrative [facility] - 04/24/2020 Unless otherwise specified, test(s) performed at: [facility], [address] [place] [address] FOREST PATHOLOGIST: Alec Payan M.D. For any questions, please call customer service at FREQUENCY:MONTHLY Resulting Agency Comment Specimen source: Blood Ernie Pompa MD LAB BLOOD ORDERABLES Performing Organization Address City/[facility] Phon e Number [facility] HD KINETICS (04/22/2020) P athologist Signature % Urea 79 65 - 80 % [facility] Reduction [facility] Specimen (Source) Anatomical Collection Method Collection Time Re ceived Time Location / / Volume Laterality 04/22/2020 04/23/2020 7:45 PM OVEN DRIER TENDER Narrative [facility] - 04/24/2020 Unless otherwise specified, test(s) performed at: [facility], [address] [place] [address] FOREST PATHOLOGIST: Alec Payan M.D. For any questions, please call customer service at FREQUENCY:MONTHLY Resulting Agency Comment Specimen source: Serum Ernie Pompa MD LAB BLOOD ORDERABLES Performing Organization Address City/[facility] Code Phon e Number [facility]PS S[facility]RA [facility] [...] / Volume Laterality 04/22/2020 04/23/2020 7:44 PM OVEN DRIER TENDER Narrative [facility] - 04/24/2020 Unless otherwise specified, test(s) performed at: [facility], [address] [place] [address] FOREST PATHOLOGIST: Alec Pyaan M.D. For any questions, please [...] / Volume Laterality 04/22/2020 04/23/2020 3:15 PM OVEN DRIER TENDER Narrative [facility] - 04/24/2020 Unless otherwise specified, test(s) performed at: [facility], [address] [place] [address] FOREST PATHOLOGIST: Alec Payan M.D. For any questions, [...] / Volume Laterality 04/22/2020 04/23/2020 2:14 PM OVEN DRIER TENDER Narrative [facility] - 04/23/2020 Unless otherwise specified, test(s) performed at: [facility], [address] [place] [address] FOREST PATHOLOGIST: Alec Payan M.D. For any questions, please call customer service at FREQUENCY:MONTHLY Resulting Agency Comment Specimen source: Plasma Ernie Pompa MD LAB BLOOD ORDERABLES Performing Organization Address City/State/ZIP Code Phon e Number [facility] documented in this encounter Visit Diagnoses Not on filedocumented in this encounter
--- OUTSIDE RECORDS SUMMARY | 2021-11-25 10:57 | XMS_ITS | Encounter Summary ---
:1945 Author Organization [facility] Address [address] [place] [address] Care Team Providers Name Role Phone Unavailable Primary Care Provider Unavailable Encounter Details Date Type Department Care Team Description 07/01/2020 Orders [facility] O f Ernie Guzmán MD [address] [place] [address] [place], [place] [phone] (Wo rk) Social History Tobacco Use [...] 07/03/2020 Unless otherwise specified, test(s) performed at: [facility], [address] [place] [address] NURSE'S AIDES TEACHER: Alec Payan M.D. For any questions, please call customer service at FREQUENCY:OTHER Resulting Agency Comment Specimen source: Blood Ernie Pompa MD LAB BLOOD ORDERABLES Performing Organization Address City/State/ZIP Code Phon e Number [facility] documented in this encounter Visit Diagnoses Not on filedocumented in this encounter
--- OUTSIDE RECORDS SUMMARY | 2021-11-25 10:57 | XMS_ITS | Encounter Summary ---
:1945 Author Organization [facility] Address [address] [place] [address] Care Team Providers Name Role Phone Unavailable Primary Care Provider Unavailable Encounter Details Date Type Department Care Team Description 05/06/2020 Treatment [facility] f Ernie Guzmán MD [address] [place] [address] [place], [place] [phone] [phone] (Wo rk) Social History Tobacco Use Types Packs/Day Years Used Date Smoking Tobacco: Unknown Comments: Smoking History Info:Patient n ot screened Sex Assigned at Date Recorded Not on file documented as of this encounter Miscellaneous Notes Dialysis Note - Ernie Pompa MD - 05/06/2020 11:40 AM CST Date: May 06, 2020 Patient Name: Shaun Ocampo : 1945 Chart #: [id number] Sex: M This patient was personally seen [...] AM ) BP (sit): 108/52 AP(-) / LEAD TEACHER: 261/214 Pulse: 89 Chairside data as of [...] Every 4 weeks During Dialysis 04/15/2020 04/14/2021 MANUFACTURING MAINTENANCE MECHANIC: Ernie Pompa MD LOCATION: [phone] SCHEDULE: 2nd Shift ACCESS: EDW: kg. DIALYZER: HD DURATION: NEEDLE SIZE: ANTICOAG: BATH: QB: ml/min QD: ml/min Subjective Tolerating dialysis well. Reports no trouble with access. 05/06: HD going well outside high fluid gains that continue. However, acute abd/groin pain on Monday and came off early. Had gross hematuria Monday. Went to Urgent care -> ER in [place] yesterday,CT with R hydro but no obstructive [...] (12/25/19) Vascular Access Assessment: Type of access: [id number]/2019 Surgeon - Lary GARDNER Access working well Impression and Plan No changes, stable dialysis He will monitor sx and ensure gross hematuria resolves and pain resolving over next 48hrs [facility], get him in [...]
--- OUTSIDE RECORDS SUMMARY | 2021-11-25 10:57 | XMS_ITS | Encounter Summary ---
:1945 Author Organization [facility] Address [address] [place] [address] Care Team Providers Name Role Phone Unavailable Primary Care Provider Unavailable Encounter Details Date Type Department Care Team Description 07/29/2020 Orders [facility] O f Ernie Guzmán MD [address] [place] [address] [place], [place] [phone] (Wo rk) Social History Tobacco Use [...] 07/30/2020 Unless otherwise specified, test(s) performed at: [facility], [address] [place] [address] GENERAL FARM HAND: Alec Payan M.D. For any questions, please call customer service at FREQUENCY:OTHER Resulting Agency Comment Specimen source: Blood Ernie Pompa MD LAB BLOOD ORDERABLES Performing Organization Address City/State/ZIP Code Phon e Number [facility] documented in this encounter Visit Diagnoses Not on filedocumented in this encounter
--- OUTSIDE RECORDS SUMMARY | 2021-11-25 10:57 | XMS_ITS | Encounter Summary ---
:1945 Author Organization [facility] Address [address] [place] [address] Care Team Providers Name Role Phone Unavailable Primary Care Provider Unavailable Encounter Details Date Type Department Care Team Description 08/19/2020 Orders Only [facility] O f Ernie Guzmán MD [address] [place] [address] [place], [place] [phone] (Wo rk) Social History Tobacco Use [...] 08/22/2020 Unless otherwise specified, test(s) performed at: [facility], [address] [place] [address] FAUCET POLISHER: Alec Payan M.D. For any questions, please call customer service at FREQUENCY:MONTHLY Resulting Agency Comment Specimen source: Plasma Ernie Pompa MD LAB BLOOD ORDERABLES Performing Organization Address City/[facility]/ZIP Code Phon e Number APS SPECTRA [facility] (ABNORMAL) Spectrae Chemistry (08/19/2020) [facility] Method Time Signature BUN 49 [...] 08/22/2020 Unless otherwise specified, test(s) performed at: [facility], [address] [place] [address] FAUCET POLISHER: Alec Payan M.D. For any questions, please [...] 08/21/2020 Unless otherwise specified, test(s) performed at: [facility], [address] [place] [address] FAUCET POLISHER: Alec Payan M.D. For any questions, please call customer service at FREQUENCY:MONTHLY Resulting Agency Comment Specimen source: Plasma Ernie Pompa MD LAB BLOOD ORDERABLES Performing Organization Address City/[facility] Phon e Number APS [...] 08/21/2020 Unless otherwise specified, test(s) performed at: [facility], [address] [place] [address] FAUCET POLISHER: Alec Payan M.D. For any questions, please call customer service at FREQUENCY:MONTHLY Resulting Agency Comment Specimen source: Serum Ernie Pompa MD LAB BLOOD ORDERABLES Performing Organization Address [facility] Phon e Number APS [...] 08/21/2020 Unless otherwise specified, test(s) performed at: [facility], [address] [place] [address] FAUCET POLISHER: Alec Payan M.D. For any questions, please call customer service at FREQUENCY:MONTHLY Resulting Agency Comment Specimen source: Blood Ernie Pompa MD LAB BLOOD ORDERABLES Performing Organization Address City/State/ZIP Code Phon e Number APS SPECTRA [facility] documented in this encounter Visit Diagnoses Not on filedocumented in this encounter
--- OUTSIDE RECORDS SUMMARY | 2021-11-25 10:57 | XMS_ITS | Encounter Summary ---
:1945 Author Organization [facility] Address [address] [place] [address] Care Team Providers Name Role Phone Unavailable Primary Care Provider Unavailable Encounter Details Date Type Department Care Team Description 09/09/2020 Treatment [facility] f Ernie Guzmán MD [address] [place] [address] [place], [place] [address] [phone] (Wo rk) Social History Tobacco Use Types Packs/Day Years Used Date Smoking Tobacco: Unknown Comments: Smoking History Info:Patient n ot screened Sex Assigned at Date Recorded Not on file documented as of this encounter Miscellaneous Notes Dialysis Note - Ernie Pompa MD - 09/09/2020 10:22 AM CDT Date: Sep 09, 2020 Patient Name: Shaun Ocampo : 1945 Chart #: [id number] Sex: M This patient was personally seen [...] AM ) BP (sit): 116/58 AP(-) / STEREOTYPER HELPER: 242/201 Pulse: 71 Chairside data as of [...] 06/26/2020 Access Flow 1772 1359 > 2000 PIG CASTER: Ernie Pompa MD LOCATION: [place] [phone] SCHEDULE: -- 2nd Shift ACCESS: EDW: kg. 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 06/10: Doing well overall, no new complaints, [...] Went to Urgent care -> ER in [place] yesterday,CT with R hydro but no obstructive [...] He had infiltration last week, dialyzed at [facility] on Sat and went [...] (06/24/20) Vascular Access Assessment: Type of access: [id number]/2019 Surgeon - Lary GARDNER Access working well [...]
--- OUTSIDE RECORDS SUMMARY | 2021-11-25 10:57 | XMS_ITS | Encounter Summary ---
:1945 Author Organization [facility] Address [address] [place] [address] Care Team Providers Name Role Phone Unavailable Primary Care Provider Unavailable Encounter Details Date Type Department Care Team Description 05/06/2020 Orders [facility] O f Ernie Guzmán MD [phone] [place] [address] [place], [place] [phone] (Wo rk) Social History Tobacco Use [...] / Volume Laterality 05/06/2020 05/07/2020 2:32 PM FRONT LINE SUPERVISOR Narrative APS SPECTRA [facility] - 05/07/2020 Unless otherwise specified, test(s) performed at: [facility], [address] [place] [address] PATTERN GRADER SUPERVISOR: Alec Payan M.D. For any questions, please call customer service at FREQUENCY:OTHER Resulting Agency Comment Specimen source: Blood Ernie Pompa MD LAB BLOOD ORDERABLES Performing Organization Address City/State/ZIP Code Phon e Number APS SPECTRA [facility] documented in this encounter Visit Diagnoses Not on filedocumented in this encounter
--- OUTSIDE RECORDS SUMMARY | 2021-11-25 10:57 | XMS_ITS | Encounter Summary ---
:1945 Author Organization [facility] Address [address] [place] [address] Care Team Providers Name Role Phone Unavailable Primary Care Provider Unavailable Encounter Details Date Type Department Care Team Description 07/08/2020 Treatment [facility] O Ernie Gómez MD [address] [place] [address] [place], [place] [address] [phone] (Wo rk) Social History Tobacco Use Types Packs/Day Years Used Date Smoking Tobacco: Unknown Comments: Smoking History Info:Patient n ot screened Sex Assigned at Date Recorded Not on file documented as of this encounter Miscellaneous Notes Dialysis Note - Ernie Pompa MD - 07/08/2020 9:33 AM CDT Date: Jul 08, 2020 Patient Name: Shaun Ocampo : 1945 Chart #: [id number] Sex: M This patient was personally seen [...] Flow > 1999 > 1999 > 1999 ADMINISTRATIVE LIBRARY ASSISTANT: Ernie Pompa MD LOCATION: [place] [phone] SCHEDULE: 2nd Shift ACCESS: EDW: kg. 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 06/10: Doing well overall, no new complaints, [...] Went to Urgent care -> ER in [place] yesterday,CT with R hydro but no obstructive [...] (04/22/20) Vascular Access Assessment: Type of access: [id number]/2019 Surgeon - Lary GARDNER Access working well [...]
--- OUTSIDE RECORDS SUMMARY | 2021-11-25 10:57 | XMS_ITS | Encounter Summary ---
:1945 Author Organization [facility] Address [address] [place] [address] Care Team Providers Name Role Phone Unavailable Primary Care Provider Unavailable Encounter Details Date Type Department Care Team Description 09/02/2020 [facility] O f Ernie Guzmán MD [address] [place] [address] [place], [place] [phone] (Wo rk) Social History Tobacco Use [...] 09/03/2020 Unless otherwise specified, test(s) performed at: [facility], [address] [place] [address] CONVENTION PLANNER: Alec Payan M.D. For any questions, please call customer service at FREQUENCY:OTHER Resulting Agency Comment Specimen source: Blood Ernie Pompa MD LAB BLOOD ORDERABLES Performing Organization Address City/State/ZIP Code Phon e Number APS SPECTRA [facility] documented in this encounter Visit Diagnoses Not on filedocumented in this encounter
--- OUTSIDE RECORDS SUMMARY | 2021-11-25 10:57 | XMS_ITS | Encounter Summary ---
:1945 Author Organization [facility] Address [address] [place] [address] Care Team Providers Name Role Phone Unavailable Primary Care Provider Unavailable Encounter Details Date Type Department Care Team Description 08/12/2020 [facility] O f Ernie Guzmán MD [address] [place] [address] [place], [place] [phone] (Wo rk) Social History Tobacco Use [...] 08/13/2020 Unless otherwise specified, test(s) performed at: [facility], [address] [place] [address] INVESTIGATIVE SHOPPER: Alec Payan M.D. For any questions, please call customer service at FREQUENCY:OTHER Resulting Agency Comment Specimen source: Blood Ernie Pompa MD LAB BLOOD ORDERABLES Performing Organization Address City/State/ZIP Code Phon e Number APS SPECTRA [facility] documented in this encounter Visit Diagnoses Not on filedocumented in this encounter
--- OUTSIDE RECORDS SUMMARY | 2021-11-25 10:57 | XMS_ITS | Encounter Summary ---
:1945 Author Organization [facility] Address [address] [place] [address] Care Team Providers Name Role Phone Unavailable Primary Care Provider Unavailable Encounter Details Date Type Department Care Team Description 06/03/2020 [facility] O f Ernie Guzmán MD [address] [place] [address] [place], [place] [phone] (Wo rk) Social History Tobacco Use [...] 06/04/2020 Unless otherwise specified, test(s) performed at: [facility], [address] [place] [address] APPLICATIONS SYSTEMS ENGINEER: Alec Payan M.D. For any questions, please call customer service at FREQUENCY:OTHER Resulting Agency Comment Specimen source: Blood Ernie Pompa MD LAB BLOOD ORDERABLES Performing Organization Address City/State/ZIP Code Phon e Number APS SPECTRA [facility] documented in this encounter Visit Diagnoses Not on filedocumented in this encounter
--- OUTSIDE RECORDS SUMMARY | 2021-11-25 10:57 | XMS_ITS | Encounter Summary ---
:1945 Author Organization [facility] Address [address] [place] [address] Care Team Providers Name Role Phone Unavailable Primary Care Provider Unavailable Encounter Details Date Type Department Care Team Description 05/20/2020 Orders [facility] O f Ernie Guzmán MD [address] [place] [address] [place], [place] [phone] (Wo rk) Social History Tobacco Use [...] Volume Laterality 05/20/2020 05/21/2020 10:4 9 PM TRANSFER CONTROLLER Resulting Agency Comment Specimen source: Plasma Ernie Pompa MD LAB BLOOD ORDERABLES Performing Organization Address City/[facility]/ZIP Code Phon e Number APS SPECTRA [facility] POST CHEMISTRY (05/20/2020) athologist Signature BUN Post 12 6 - 19 APS SPECTRA Dialysis mg/dL [facility] Specimen (Source) Anatomical Collection Method Collection Time Re ceived Time Location / / Volume Laterality 05/20/2020 05/21/2020 10:4 8 PM TRANSFER CONTROLLER Narrative APS SPECTRA [facility] - 05/22/2020 Unless otherwise specified, test(s) performed at: [facility], [address] [place] [address] SAMPLER RADIOACTIVE WASTE: Alec Payan M.D. For any questions, please call customer service at FREQUENCY:MONTHLY Resulting Agency Comment Specimen source: Plasma Ernie Pompa MD LAB BLOOD ORDERABLES Performing Organization Address City/[facility]/ZIP Code Phon e Number APS SPECTRA [facility] IMMUNO CHEMISTRY (05/20/2020) athologist Signature Hep B Surface Negative Negative APS SPECTRA Ag [facility] Specimen (Source) Anatomical Collection Method Collection Time Re ceived Time Location / / Volume Laterality 05/20/2020 05/21/2020 6:17 PM TRANSFER CONTROLLER Narrative APS SPECTRA [facility] - 05/22/2020 Unless otherwise specified, test(s) performed at: [facility], [address] [place] [address] SAMPLER RADIOACTIVE WASTE: Alec Payan M.D. For any questions, please [...] / Volume Laterality 05/20/2020 05/21/2020 4:04 PM TRANSFER CONTROLLER Narrative APS SPECTRA [facility] - 05/22/2020 Unless otherwise specified, test(s) performed at: [place] [address] SAMPLER RADIOACTIVE WASTE: Alec Payan M.D. For any questions, please [...] / Volume Laterality 05/20/2020 05/21/2020 4:04 PM TRANSFER CONTROLLER Narrative APS SPECTRA [facility] - 05/22/2020 Unless otherwise specified, test(s) performed at: [facility], [address] [place] [address] SAMPLER RADIOACTIVE WASTE: Alec Payan M.D. For any questions, please call customer service at FREQUENCY:MONTHLY Resulting Agency Comment Specimen source: Blood Ernie Pompa MD LAB BLOOD ORDERABLES Performing Organization Address City/State/ZIP Code Phon e Number APS SPECTRA [facility] (ABNORMAL) Spectrae Chemistry (05/20/2020) [facility] gist Method Time Signature BUN 56 [...] / Volume Laterality 05/20/2020 05/21/2020 6:17 PM TRANSFER CONTROLLER Narrative APS SPECTRA [facility] - 05/21/2020 Unless otherwise specified, test(s) performed at: [facility], [address] [place] [address] SAMPLER RADIOACTIVE WASTE: Alec Payan M.D. For any questions, please call customer service at FREQUENCY:MONTHLY Resulting Agency Comment Specimen source: Serum Ernie Pompa MD LAB BLOOD ORDERABLES Performing Organization Address City/State/ZIP Code Phon e Number APS SPECTRA [facility] documented in this encounter Visit Diagnoses Not on filedocumented in this encounter
--- OUTSIDE RECORDS SUMMARY | 2021-11-25 10:57 | XMS_ITS | Encounter Summary ---
:1945 Author Organization [facility] Address [address] [place] [address] Care Team Providers Name Role Phone Unavailable Primary Care Provider Unavailable Encounter Details Date Type Department Care Team Description 06/24/2020 Orders [facility] O f Ernie Guzmán MD [address] [place] [address] [place], [place] [phone] (Wo rk) Social History Tobacco Use [...] 06/26/2020 Unless otherwise specified, test(s) performed at: [facility], [address] [place] [address] HOTEL RESERVATION AGENT: Alec Payan M.D. For any questions, please call customer service at FREQUENCY:MONTHLY Resulting Agency Comment Specimen source: Plasma Ernie Pompa MD LAB BLOOD ORDERABLES Performing Organization Address City/[facility]/ZIP [facility] [place]on [...] 06/25/2020 Unless otherwise specified, test(s) performed at: [facility], [address] [place], [place] [id number] HOTEL RESERVATION AGENT: Alec Payan M.D. For any questions, please call customer service at FREQUENCY:MONTHLY Resulting Agency Comment Specimen source: Plasma Ernie Pompa MD LAB BLOOD ORDERABLES Performing Organization Address City/[facility] Phon e Number APS SPECTRA [...] 06/26/2020 Unless otherwise specified, test(s) performed at: [facility], [address] [place] [address] HOTEL RESERVATION AGENT: Alec Payan M.D. For any questions, please call customer service at FREQUENCY:MONTHLY Resulting Agency Comment Specimen source: Blood Ernie Pompa MD LAB BLOOD ORDERABLES Performing Organization Address City/[facility] Phon e Number APS SPECTRA [...] APS SPECTRA [facility] (ABNORMAL) Spectrae Chemistry (06/24/2020) [facility] Method Time Signature Ferritin 951 (H) [...] 06/25/2020 Unless otherwise specified, test(s) performed at: [facility], [address] [place] [address] HOTEL RESERVATION AGENT: Alec Payan M.D. For any questions, please call customer service at FREQUENCY:MONTHLY Resulting Agency Comment Specimen source: Serum Ernie Pompa MD LAB BLOOD ORDERABLES Performing Organization Address City/State/ZIP Code Phon e Number APS SPECTRA [facility] documented in this encounter Visit Diagnoses Not on filedocumented in this encounter
--- OUTSIDE RECORDS SUMMARY | 2021-11-25 10:57 | XMS_ITS | Encounter Summary ---
:1945 Author Organization [facility] Address [address] [place] [address] Care Team Providers Name Role Phone Unavailable Primary Care Provider Unavailable Encounter Details Date Type Department Care Team Description 08/26/2020 Orders [facility] O f Ernie Guzmán MD [address] [place] [address] [place], [place] [phone] (Wo rk) Social History Tobacco Use [...] 08/27/2020 Unless otherwise specified, test(s) performed at: [facility], [address] [place] [address] BALLPOINT PENS ASSEMBLER: Alec Payan M.D. For any questions, please call customer service at FREQUENCY:OTHER Resulting Agency Comment Specimen source: Blood Ernie Pompa MD LAB BLOOD ORDERABLES Performing Organization Address City/State/ZIP Code Phon e Number APS SPECTRA [facility] documented in this encounter Visit Diagnoses Not on filedocumented in this encounter
--- OUTSIDE RECORDS SUMMARY | 2021-11-25 10:57 | XMS_ITS | Encounter Summary ---
:1945 Author Organization [facility] Address [address] [place] [address] Care Team Providers Name Role Phone Unavailable Primary Care Provider Unavailable Encounter Details Date Type Department Care Team Description 04/08/2020 Treatment [facility] O f Ernie Guzmán MD [address] [place] [address] [place], [place] [address] [phone] (Wo rk) Social History Tobacco Use Types Packs/Day Years Used Date Smoking Tobacco: Unknown Comments: Smoking History Info:Patient n ot screened Sex Assigned at Date Recorded Not on file documented as of this encounter Miscellaneous Notes Dialysis Note - Ernie Pompa MD - 04/08/2020 12:32 PM CST Date: Apr 08, 2020 Patient Name: Shaun Ocampo : 1945 Chart #: [id number] Sex: M This patient was personally seen [...] PM ) BP (sit): 101/53 AP(-) / MATH INSTRUCTOR: 255/193 Pulse: 70 Chairside data as of [...] Every 4 weeks During Dialysis 03/18/2020 03/17/2021 GERIATRICIAN: Ernie Pompa MD LOCATION: [phone] SCHEDULE: M-W- 2nd Shift ACCESS: EDW: kg. [...] He had infiltration last week, dialyzed at [facility] on Sat and went well, [...] (09/18/19) Vascular Access Assessment: Type of access: [id number]/2019 Surgeon - Lary GARDNER Access working well [...]
--- OUTSIDE RECORDS SUMMARY | 2021-11-25 10:57 | XMS_ITS | Encounter Summary ---
:1945 Author Organization [facility] Address [address] [place] [address] Care Team Providers Name Role Phone Unavailable Primary Care Provider Unavailable Encounter Details Date Type Department Care Team Description 09/16/2020 Orders [facility] O f Ernie Guzmán MD [address] [place] [address] [place], [place] [phone] (Wo rk) Social History Tobacco Use [...] 09/17/2020 Unless otherwise specified, test(s) performed at: [facility], [address] [place] [address] SHEET METAL LAY OUT WORKER: Alec Payan M.D. For any questions, please call customer service at FREQUENCY:OTHER Resulting Agency Comment Specimen source: Blood Ernie Pompa MD LAB BLOOD ORDERABLES Performing Organization Address City/State/ZIP Code Phon e Number APS SPECTRA [facility] documented in this encounter Visit Diagnoses Not on filedocumented in this encounter
--- OUTSIDE RECORDS SUMMARY | 2021-11-25 10:57 | XMS_ITS | Encounter Summary ---
:1945 Author Organization [facility] Address [address] [place] [address] Care Team Providers Name Role Phone Unavailable Primary Care Provider Unavailable Encounter Details Date Type Department Care Team Description 07/22/2020 Treatment [facility] f Ernie Guzmán MD [address] [place] [address] [place], [place] [address] [phone] (Wo rk) Social History Tobacco Use Types Packs/Day Years Used Date Smoking Tobacco: Unknown Comments: Smoking History Info:Patient n ot screened Sex Assigned at Date Recorded Not on file documented as of this encounter Miscellaneous Notes Dialysis Note - Ernie Pompa MD - 07/22/2020 10:25 AM CDT Date: July 22, 2020 Patient Name: Shaun Ocampo : 1945 Chart #: [id number] Sex: M This patient was personally seen [...] AM ) BP (sit): 139/55 AP(-) / DATABASE ADMINISTRATION PROJECT MANAGER: 262/224 Pulse: 69 Chairside data as [...] Every 4 weeks During Dialysis 07/08/2020 07/07/2021 MANAGER OF MAINTENANCE: Ernie Pompa MD LOCATION: [phone] SCHEDULE: M-W-F 2nd Shift EDW: kg. 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 06/10: Doing well overall, no new complaints, [...] Went to Urgent care -> ER in [place] yesterday,CT with R hydro but no obstructive [...] He had infiltration last week, dialyzed at [facility] on Sat and went well, access [...] prescription. Vascular Access Assessment Type of access: [id number]/2019 Surgeon - Lary KUMARW Access working well [...] at goal. Intact PTH is above goal. Chainstitch Zipper Setter will adjust binders and vitamin D per [...]
--- OUTSIDE RECORDS SUMMARY | 2021-11-25 10:57 | XMS_ITS | Encounter Summary ---
:1945 Author Organization [facility] Address [address] [place] [address] Care Team Providers Name Role Phone Unavailable Primary Care Provider Unavailable Encounter Details Date Type Department Care Team Description 04/08/2020 Orders [facility] O f Ernie Guzmán MD [address] [place] [address] [place], [place] [phone] (Wo rk) Social History Tobacco Use [...] / Volume Laterality 04/08/2020 04/09/2020 2:20 PM PHARMACEUTICAL SCIENTIST Narrative APS SPECTRA [facility] - 04/09/2020 Unless otherwise specified, test(s) performed at: [facility], [address] [place] [address] SYSTEMS LEAD: Alec Payan M.D. For any questions, please call customer service at FREQUENCY:OTHER Resulting Agency Comment Specimen source: Blood Ernie Pompa MD LAB BLOOD ORDERABLES Performing Organization Address City/State/ZIP Code Phon e Number APS SPECTRA [facility] documented in this encounter Visit Diagnoses Not on filedocumented in this encounter
--- OUTSIDE RECORDS SUMMARY | 2021-11-25 10:57 | XMS_ITS | Encounter Summary ---
:1945 Author Organization [facility] Address [address] [place] [address] Care Team Providers Name Role Phone Unavailable Primary Care Provider Unavailable Encounter Details Date Type Department Care Team Description 2020 Orders [facility] O f Ernie Guzmán MD [address] [place] [address] [place], [place] [phone] (Wo rk) Social History Tobacco Use [...] 08/06/2020 Unless otherwise specified, test(s) performed at: [facility], [address] [place] [address] SHINGLE TRIMMER: Alec Payan M.D. For any questions, please call customer service at FREQUENCY:OTHER Resulting Agency Comment Specimen source: Blood Ernie Pompa MD LAB BLOOD ORDERABLES Performing Organization Address City/State/ZIP Code Phon e Number APS SPECTRA [facility] documented in this encounter Visit Diagnoses Not on filedocumented in this encounter
--- OUTSIDE RECORDS SUMMARY | 2021-11-25 10:58 | XMS_ITS | Encounter Summary ---
:1945 Author Organization [facility] Address [address] [place] [address] Care Team Providers Name Role Phone Unavailable Primary Care Provider Unavailable Encounter Details Date Type Department Care Team Description 03/16/2020 [facility] O f Ernie Guzmán MD [address] [place] [address] [place], [place] [phone] (Wo rk) Social History Tobacco Use [...] Volume Laterality 03/16/2020 03/17/2020 12:0 2 PM BUILDING CLEANING SUPERVISOR Narrative [facility] - 03/17/2020 Unless otherwise specified, test(s) performed at: [facility], [address] [place] [address] CART DRIVER: Alec Payan M.D. For any questions, please call customer service at FREQUENCY:OTHER Resulting Agency Comment Specimen source: Blood Ernie Pompa MD LAB BLOOD ORDERABLES Performing Organization Address City/State/ZIP Code Phon e Number [facility] documented in this encounter Visit Diagnoses Not on filedocumented in this encounter
--- OUTSIDE RECORDS SUMMARY | 2021-11-25 10:58 | XMS_ITS | Encounter Summary ---
:1945 Author Organization [facility] Address [address] [place] [address] Care Team Providers Name Role Phone Unavailable Primary Care Provider Unavailable Encounter Details Date Type Department Care Team Description 12/25/2019 Treatment [facility] O Ernie Gómez MD [address] [place] [address] [place], [place] [phone] (Wo rk) Social History Tobacco Use Types Packs/Day Years Used Date Smoking Tobacco: Unknown Comments: Smoking History Info:Patient n ot screened Sex Assigned at Date Recorded Not on file documented as of this encounter Miscellaneous Notes Dialysis Note - Ernie Pompa MD - 12/25/2019 11:33 AM CDT Date: Dec 25, 2019 Patient Name: Shaun Ocampo : 1945 Chart #: [id number] Sex: M This patient was personally seen [...] AM ) BP (sit): 118/50 AP(-) / SERVICES DELIVERY DRIVER: 258/222 Pulse: 64 Chairside data as of [...] Access Flow > 2000 > 2000 1011 MARKETING PROPOSAL COORDINATOR: Ernie Pompa MD LOCATION: [place] [phone] SCHEDULE: M-W- 2nd Shift EDW: kg. DIALYZER: [...] prescription. Vascular Access Assessment Type of access: Evxquhu67/2019 Surgeon Annita KUMARW Access working well Anemia [...] above goal. Intact PTH is below goal. Automotive Specialty Technician will adjust binders and vitamin D [...]
--- OUTSIDE RECORDS SUMMARY | 2021-11-25 10:58 | XMS_ITS | Encounter Summary ---
:1945 Author Organization [facility] Address [address] [place] [address] Care Team Providers Name Role Phone Unavailable Primary Care Provider Unavailable Encounter Details Date Type Department Care Team Description 01/29/2020 [facility] O f Ernie Guzmán MD [address] [place] [address] [place], [place] [phone] (Wo rk) Social History Tobacco Use [...] / Volume Laterality 01/29/2020 01/30/2020 5:28 PM SCREEN DOOR MAKER Narrative [facility] - 01/30/2020 Unless otherwise specified, test(s) performed at: [facility], [address] [place] [address] WILDLIFE POLICY PROFESSIONAL: Alec Payan M.D. For any questions, [...] / Volume Laterality 01/29/2020 01/30/2020 1:32 PM SCREEN DOOR MAKER Narrative [facility] - 01/30/2020 Unless otherwise specified, test(s) performed at: [facility], [address] [place] [address] WILDLIFE POLICY PROFESSIONAL: Alec Payan M.D. For any questions, please call customer service at FREQUENCY:OTHER Resulting Agency Comment Specimen source: Blood Ernie Pompa MD LAB BLOOD ORDERABLES Performing Organization Address City/State/ZIP Code Phon e Number [facility] documented in this encounter Visit Diagnoses Not on filedocumented in this encounter
--- OUTSIDE RECORDS SUMMARY | 2021-11-25 10:58 | XMS_ITS | Encounter Summary ---
:1945 Author Organization [facility] Address [address] [place] [address] Care Team Providers Name Role Phone Unavailable Primary Care Provider Unavailable Encounter Details Date Type Department Care Team Description 01/15/2020 [facility] O f Ernie Guzmán MD [address] [place] [address] [place], [place] [phone] (Wo rk) Social History Tobacco Use [...] 01/16/2020 Unless otherwise specified, test(s) performed at: [facility], [address] [place] [address] SUPERVISOR BINDERY: Alec Payan M.D. For any questions, please call customer service at FREQUENCY:OTHER Resulting Agency Comment Specimen source: Blood Ernie Pompa MD LAB BLOOD ORDERABLES Performing Organization Address City/State/ZIP Code Phon e Number [facility] documented in this encounter Visit Diagnoses Not on filedocumented in this encounter
--- OUTSIDE RECORDS SUMMARY | 2021-11-25 10:58 | XMS_ITS | Encounter Summary ---
:1945 Author Organization [facility] Address [address] [place] [address] Care Team Providers Name Role Phone Unavailable Primary Care Provider Unavailable Encounter Details Date Type Department Care Team Description 03/09/2020 [facility] O f Ernie Guzmán MD [address] [place] [address] [place], [place] [phone] (Wo rk) Social History Tobacco Use [...] athologist Signature Hepatitis B <10 mIU/mL [email or web address] Surface Ab [facility] Comment: Reference Range: <10 mIU/mL ? Non-Immune >=10 mIU/mL ?Immune The magnitude of the measured result abo ve 10 mIU/mL is not indicative of the total amount of antibody present. Custom Exception Specimen (Source) Anatomical Collection Method Collection Time Re ceived Time Location / / Volume Laterality 03/09/2020 03/10/2020 2:47 PM HAND BANDER Narrative [facility] - 03/10/2020 Unless otherwise specified, test(s) performed at: [facility], [address] [place] [address] SIMULATION SOFTWARE ENGINEER: Alec Payan M.D. For any [...] Volume Laterality 03/09/2020 03/10/2020 12:1 4 PM HAND BANDER Narrative [facility] - 03/10/2020 Unless otherwise specified, test(s) performed at: [facility], [address] [place] [address] SIMULATION SOFTWARE ENGINEER: Alec Payan M.D. For any questions, please call customer service at FREQUENCY:OTHER Resulting Agency Comment Specimen source: Blood Ernie Pompa MD LAB BLOOD ORDERABLES Performing Organization Address City/State/ZIP Code Phon e Number [facility] documented in this encounter Visit Diagnoses Not on filedocumented in this encounter
--- OUTSIDE RECORDS SUMMARY | 2021-11-25 10:58 | XMS_ITS | Encounter Summary ---
:1945 Author Organization [facility] Address [address] [place] [address] Care Team Providers Name Role Phone Unavailable Primary Care Provider Unavailable Encounter Details Date Type Department Care Team Description 12/11/2019 [facility] O f Ernie Guzmán MD [address] [place] [address] [place], [place] [phone] (Wo rk) Social History Tobacco Use [...] 12/12/2019 Unless otherwise specified, test(s) performed at: [facility], [address] [place] [address] STONE UNLOADER: Alec Payan M.D. For any questions, please call customer service at FREQUENCY:OTHER Resulting Agency Comment Specimen source: Blood Ernie Pompa MD LAB BLOOD ORDERABLES Performing Organization Address City/State/ZIP Code Phon e Number [facility] documented in this encounter Visit Diagnoses Not on filedocumented in this encounter
--- OUTSIDE RECORDS SUMMARY | 2021-11-25 10:58 | XMS_ITS | Encounter Summary ---
:1945 Author Organization [facility] Address [address] [place] [address] Care Team Providers Name Role Phone Unavailable Primary Care Provider Unavailable Encounter Details Date Type Department Care Team Description 11/20/2019 Treatment [facility] O Ernie Gómez MD [address] [place] [address] [place], [place] [address] [phone] (Wo rk) Social History Tobacco Use Types Packs/Day Years Used Date Smoking Tobacco: Unknown Comments: Smoking History Info:Patient n ot screened Sex Assigned at Date Recorded Not on file documented as of this encounter Miscellaneous Notes Dialysis Note - Ernie Pompa MD - 11/20/2019 11:34 AM CDT Date: Nov 20, 2019 Patient Name: Shaun Ocampo : 1945 Chart #: [id number] Sex: M This patient was personally seen [...] AM ) BP (sit): 126/49 AP(-) / LOW VOLTAGE TECHNICIAN: 230/186 Pulse: 64 Chairside data as of [...] 08/23/2019 Access Flow 1011 1591 > 2000 FINAL ASSEMBLY INSPECTOR: Ernie Pompa MD LOCATION: [place] [phone] SCHEDULE: -W- 2nd Shift EDW: kg. DIALYZER: [...] prescription. Vascular Access Assessment Type of access: [id number]/2019 Surgeon - Lary GARDNER Access working well [...] above goal. Intact PTH is below goal. Inspector Precision will adjust binders and vitamin D per [...]
--- OUTSIDE RECORDS SUMMARY | 2021-11-25 10:58 | XMS_ITS | Encounter Summary ---
:1945 Author Organization [facility] Address [address] [place] [address] Care Team Providers Name Role Phone Unavailable Primary Care Provider Unavailable Encounter Details Date Type Department Care Team Description 01/01/2020 [facility] Only [facility] O f Ernie Guzmán MD [address] [place] [address] [place], [place] [phone] (Wo rk) Social History Tobacco Use [...] Provider LAB BLOOD ORDERABLES Performing Organization Address City/[facility]/ZIP Code Phon e Number [facility] (01/01/2020) P athologist Signature % Urea 77 65 - 80 % APS S[facility]RA Reduction [facility] Specimen (Source) Anatomical Collection Method Collection Time Re ceived Time Location / / Volume Laterality 01/01/2020 01/02/2020 6:37 PM CDT Narrative [facility] - 01/02/2020 Unless otherwise specified, test(s) performed at: [facility], [address] [place] [address] FLIGHT OPERATIONS ENGINEER: Alec Payan M.D. For any questions, please call customer service at FREQUENCY:OTHER Resulting Agency Comment Specimen source: Serum Ernie Pompa MD LAB BLOOD ORDERABLES Performing Organization Address [facility] Phon e Number [facility]PS S[facility]RA [facility] (ABNORMAL) Spectrae Chemistry (01/01/2020) P athologist Signature BUN 53 (H) 6 - 19 APS S[facility]RA mg/dL [facility] Specimen (Source) Anatomical Collection Method Collection Time Re ceived Time Location / / Volume Laterality 01/01/2020 01/02/2020 6:36 PM CDT Narrative [facility] - 01/02/2020 Unless otherwise specified, test(s) performed at: [facility], [address] [place], [place] [id number] FLIGHT OPERATIONS ENGINEER: Alec Payan M.D. For any questions, please call customer service at FREQUENCY:OTHER Resulting Agency Comment Specimen source: Serum Ernie Pompa MD LAB BLOOD ORDERABLES Performing Organization Address City/[facility] Phon e Number [facility]PS SPECTRA [facility] (ABNORMAL) [...] 01/02/2020 Unless otherwise specified, test(s) performed at: [facility], [address] [place] [address] FLIGHT OPERATIONS ENGINEER: Alec Payan M.D. For any questions, please call customer service at FREQUENCY:OTHER Resulting Agency Comment Specimen source: Blood Ernie Pompa MD LAB BLOOD ORDERABLES Performing Organization Address City/State/[facility] Code Phon e Number [facility]PS [facility] POST CHEMISTRY (01/01/2020) P athologist Signature BUN Post 12 6 - 19 APS SPECTRA Dialysis mg/dL [facility] Specimen (Source) Anatomical Collection Method Collection Time Re ceived Time Location / / Volume Laterality 01/01/2020 01/02/2020 2:30 PM CDT Narrative [facility] - 01/02/2020 Unless otherwise specified, test(s) performed at: [facility], [address] [place] [address] FLIGHT OPERATIONS ENGINEER: Alec Payan M.D. For any questions, please call customer service at FREQUENCY:OTHER Resulting Agency Comment Specimen source: Plasma Ernie Pompa MD LAB BLOOD ORDERABLES Performing Organization Address City/State/[facility] Code Phon e Number [facility] documented in this encounter Visit Diagnoses Not on filedocumented in this encounter
--- OUTSIDE RECORDS SUMMARY | 2021-11-25 10:58 | XMS_ITS | Encounter Summary ---
:1945 Author Organization [facility] Address [address] [place] [address] Care Team Providers Name Role Phone Unavailable Primary Care Provider Unavailable Encounter Details Date Type Department Care Team Description 11/27/2019 Orders [facility] O f Ernie Guzmán MD [address] [place] [address] [place], [place] [phone] (Wo rk) Social History Tobacco Use [...] 11/29/2019 Unless otherwise specified, test(s) performed at: [facility], [address] [place] [address] DENIAL MANAGEMENT REPRESENTATIVE: Alec Payan M.D. For any questions, please call customer service at FREQUENCY:OTHER Resulting Agency Comment Specimen source: Blood Ernie Pompa MD LAB BLOOD ORDERABLES Performing Organization Address City/State/ZIP Code Phon e Number [facility] documented in this encounter Visit Diagnoses Not on filedocumented in this encounter
--- OUTSIDE RECORDS SUMMARY | 2021-11-25 10:58 | XMS_ITS | Encounter Summary ---
:1945 Author Organization [facility] Address [address] [place] [address] Care Team Providers Name Role Phone Unavailable Primary Care Provider Unavailable Encounter Details Date Type Department Care Team Description 12/04/2019 Treatment [facility] O Ernie Gómez MD [address] [place] [address] [place], [place] [address] [phone] (Wo rk) Social History Tobacco Use Types Packs/Day Years Used Date Smoking Tobacco: Unknown Comments: Smoking History Info:Patient n ot screened Sex Assigned at Date Recorded Not on file documented as of this encounter Miscellaneous Notes Dialysis Note - Ernie Pompa MD - 12/04/2019 12:16 PM CDT Date: Dec 04, 2019 Patient Name: Shaun Ocampo : 1945 Chart #: [id number] Sex: M This patient was personally seen [...] Every 2 weeks During Dialysis 11/27/2019 11/25/2020 SUPERVISOR HANGING AND TRIMMING: Ernie Pompa MD LOCATION: [phone] SCHEDULE: -- 2nd Shift ACCESS: EDW: kg. [...] (06/19/19) Vascular Access Assessment: Type of access: [id number]/2019 Surgeon - Lary KUMARW Access working well [...]
--- OUTSIDE RECORDS SUMMARY | 2021-11-25 10:58 | XMS_ITS | Encounter Summary ---
:1945 Author Organization [facility] Address [address] [place] [address] Care Team Providers Name Role Phone Unavailable Primary Care Provider Unavailable Encounter Details Date Type Department Care Team Description 01/22/2020 Orders Only [facility] O f Ernie Guzmán MD [address] [place] [address] [place], [place] [phone] (Wo rk) Social History Tobacco Use [...] / Volume Laterality 01/22/2020 01/23/2020 8:20 PM NURSING CARE PARTNER Narrative [facility] - 01/24/2020 Unless otherwise specified, test(s) performed at: [facility], [address] [place], [place] [id number] TRIBAL JUDGE: Alec Payan M.D. For any questions, please [...] / Volume Laterality 01/22/2020 01/23/2020 8:13 PM NURSING CARE PARTNER Narrative [facility] - 01/24/2020 Unless otherwise specified, test(s) performed at: [facility], [address] [place] [address] TRIBAL JUDGE: Alec Payan M.D. For any questions, please call customer service at FREQUENCY:MONTHLY Resulting Agency Comment Specimen source: Serum Ernie Pompa MD LAB BLOOD ORDERABLES Performing Organization Address City/[facility] Phon e Number [facility]PS SPECTRA [facility] HD KINETICS (01/22/2020) P athologist Signature % Urea 77 65 - 80 % [facility]PS [facility] Reduction [facility] Specimen (Source) Anatomical Collection Method Collection Time Re ceived Time Location / / Volume Laterality 01/22/2020 01/23/2020 8:14 PM NURSING CARE PARTNER Narrative [facility] - 01/24/2020 Unless otherwise specified, test(s) performed at: [facility], [address] [place] [address] TRIBAL JUDGE: Alec Payan M.D. For any questions, please [...] / Volume Laterality 01/22/2020 01/23/2020 8:13 PM NURSING CARE PARTNER Narrative [facility] - 01/24/2020 Unless otherwise specified, test(s) performed at: [facility], [address] [place] [address] TRIBAL JUDGE: Alec Payan M.D. For any questions, please call customer service at FREQUENCY:MONTHLY Resulting Agency Comment Specimen source: Serum Ernie Pompa MD LAB BLOOD ORDERABLES Performing Organization Address City/[facility] Phon e Number [facility] POST CHEMISTRY (01/22/2020) P athologist Signature BUN Post 16 6 - 19 APS SPECTRA Dialysis mg/dL [facility] Specimen (Source) Anatomical Collection Method Collection Time Re ceived Time Location / / Volume Laterality 01/22/2020 01/23/2020 1:17 PM NURSING CARE PARTNER Narrative [facility] - 01/23/2020 Unless otherwise specified, test(s) performed at: [facility], [address] [place] [address] TRIBAL JUDGE: Alec Payan M.D. For any questions, please call customer service at FREQUENCY:MONTHLY Resulting Agency Comment Specimen source: Plasma Ernie Pompa MD LAB BLOOD ORDERABLES Performing Organization Address City/[facility] Phon e Number [facility]RA [facility] documented in this encounter Visit Diagnoses Not on filedocumented in this encounter
--- OUTSIDE RECORDS SUMMARY | 2021-11-25 10:58 | XMS_ITS | Encounter Summary ---
:1945 Author Organization [facility] Address [address] [place] [address] Care Team Providers Name Role Phone Unavailable Primary Care Provider Unavailable Encounter Details Date Type Department Care Team Description 01/08/2020 [facility] O f Ernie Guzmán MD [address] [place] [address] [place], [place] [phone] (Wo rk) Social History Tobacco Use [...] 01/09/2020 Unless otherwise specified, test(s) performed at: [facility] [address] [place] [address] ONLINE COMMUNITY MANAGER: Alec Payan M.D. For any questions, please call customer service at FREQUENCY:OTHER Resulting Agency Comment Specimen source: Blood Ernie Pompa MD LAB BLOOD ORDERABLES Performing Organization Address City/State/ZIP Code Phon e Number [facility] documented in this encounter Visit Diagnoses Not on filedocumented in this encounter
--- OUTSIDE RECORDS SUMMARY | 2021-11-25 10:58 | XMS_ITS | Encounter Summary ---
:1945 Author Organization [facility] Address [address] [place] [address] Care Team Providers Name Role Phone Unavailable Primary Care Provider Unavailable Encounter Details Date Type Department Care Team Description 01/22/2020 Treatment [facility] O Ernie Gómez MD [address] [place] [address] [place], [place] [address] [phone] (Wo rk) Social History Tobacco Use Types Packs/Day Years Used Date Smoking Tobacco: Unknown Comments: Smoking History Info:Patient n ot screened Sex Assigned at Date Recorded Not on file documented as of this encounter Miscellaneous Notes Dialysis Note - Ernie Pompa MD - 01/22/2020 9:00 AM CST Date: Jan 22, 2020 Patient Name: Shaun Ocampo : 1945 Chart #: [id number] Sex: M This patient was personally seen [...] AM ) BP (sit): 139/67 AP(-) / BEFORE SCHOOL BABYSITTER: n/a Pulse: 72 Chairside data as of [...] Every 2 weeks During Dialysis 01/22/2020 01/20/2021 CIVIL ATTORNEY: Ernie Pompa MD LOCATION: [facility] [phone] SCHEDULE: M-W-F 2nd Shift EDW: kg. DIALYZER: [...] prescription. Vascular Access Assessment Type of access: [id number]/2019 Surgeon - Lary KUMARW Access working well [...] above goal. Intact PTH is at goal. Installer will adjust binders and vitamin D [...]
--- OUTSIDE RECORDS SUMMARY | 2021-11-25 10:58 | XMS_ITS | Encounter Summary ---
:1945 Author Organization [facility] Address [address] [place] [address] Care Team Providers Name Role Phone Unavailable Primary Care Provider Unavailable Encounter Details Date Type Department Care Team Description 12/18/2019 Orders [facility] O f Ernie Guzmán MD [address] [place] [address] [place], [place] [phone] (Wo rk) Social History Tobacco Use [...] 12/19/2019 Unless otherwise specified, test(s) performed at: [facility], [address] [place] [address] BEEF SPECIALIST: Alec Payan M.D. For any questions, please call customer service at FREQUENCY:OTHER Resulting Agency Comment Specimen source: Blood Ernie Pompa MD LAB BLOOD ORDERABLES Performing Organization Address City/State/ZIP Code Phon e Number [facility] documented in this encounter Visit Diagnoses Not on filedocumented in this encounter
--- OUTSIDE RECORDS SUMMARY | 2021-11-25 10:58 | XMS_ITS | Encounter Summary ---
:1945 Author Organization [facility] Address [address] [place] [address] Care Team Providers Name Role Phone Unavailable Primary Care Provider Unavailable Encounter Details Date Type Department Care Team Description 02/19/2020 Orders [facility] O f Ernie Guzmán MD [address] [place] [address] [place], [place] [phone] (Wo rk) Social History Tobacco Use [...] / Volume Laterality 02/19/2020 02/20/2020 6:44 PM LAP CHECKER Resulting Agency Comment Specimen source: Plasma Ernie Pompa MD LAB BLOOD ORDERABLES Performing Organization Address City/State/ZIP Code Phon e Number [facility]PS [facility] POST CHEMISTRY (02/19/2020) P athologist Signature BUN Post 13 6 - 19 [facility]PS [facility] Dialysis mg/dL [facility] Specimen (Source) Anatomical Collection Method Collection Time Re ceived Time Location / / Volume Laterality 02/19/2020 02/20/2020 6:39 PM LAP CHECKER Narrative [facility]PS [facility]RA [facility] - 02/21/2020 Unless otherwise specified, test(s) performed at: [facility], [address] [place] [address] CRUSHER SUPERVISOR: Alec Payan M.D. For any questions, [...] Volume Laterality 02/19/2020 02/20/2020 10:1 5 AM LAP CHECKER Narrative [facility]PS [facility]RA [facility] - 02/20/2020 Unless otherwise specified, test(s) performed at: [facility], [address] [place], [place] [id number] CRUSHER SUPERVISOR: Alec Payan M.D. For any questions, [...] Volume Laterality 02/19/2020 02/20/2020 10:4 6 AM LAP CHECKER Resulting Agency Comment Specimen source: Serum Ernie [...] Volume Laterality 02/19/2020 02/20/2020 10:4 6 AM LAP CHECKER Narrative [facility]PS [facility] - 02/20/2020 Unless otherwise specified, test(s) performed at: [facility], [address] [place] [address] CRUSHER SUPERVISOR: Alec Payan M.D. For any questions, please call customer service at FREQUENCY:MONTHLY Resulting Agency Comment Specimen source: Serum Ernie Pompa MD LAB BLOOD ORDERABLES Performing Organization Address City/State/ZIP Code Phon e Number [facility] documented in this encounter Visit Diagnoses Not on filedocumented in this encounter
--- OUTSIDE RECORDS SUMMARY | 2021-11-25 10:58 | XMS_ITS | Encounter Summary ---
:1945 Author Organization [facility] Address [address] [place] [address] Care Team Providers Name Role Phone Unavailable Primary Care Provider Unavailable Encounter Details Date Type Department Care Team Description 12/25/2019 Orders Only [facility] O f Ernie Guzmán MD [address] [place] [address] [place], [place] [phone] (Wo rk) Social History Tobacco Use [...] 12/27/2019 Unless otherwise specified, test(s) performed at: [facility], [address] [place] [address] EMISSIONS ENGINEER: Alec Payan M.D. For any questions, please call customer service at FREQUENCY:MONTHLY Resulting Agency Comment Specimen source: Plasma Ernie Pompa MD LAB BLOOD ORDERABLES Performing Organization Address City/[facility] Phon e Number APS SPECTRA [facility] IMMUNO CHEMISTRY (12/25/2019) P athologist Signature Hep B Surface Negative Negative APS SPECTRA Ag [facility] Specimen (Source) Anatomical Collection Method Collection Time Re ceived Time Location / / Volume Laterality 12/25/2019 12/26/2019 5:50 PM CDT Narrative APS SPECTRA [facility] - 12/27/2019 Unless otherwise specified, test(s) performed at: [facility], [address] [place] [address] EMISSIONS ENGINEER: Alec Payan M.D. For any questions, please call customer service at FREQUENCY:MONTHLY Resulting Agency Comment Specimen source: Serum Ernie Pompa MD LAB BLOOD ORDERABLES Performing Organization Address [facility] Phon e [...] 12/27/2019 Unless otherwise specified, test(s) performed at: [facility], [address] [place] [address] EMISSIONS ENGINEER: Alec Payan M.D. For any questions, please call customer service at FREQUENCY:MONTHLY Resulting Agency Comment Specimen source: Plasma Ernie Pompa MD LAB BLOOD ORDERABLES Performing Organization Address City/[facility] Phon e [...] 12/27/2019 Unless otherwise specified, test(s) performed at: [facility], [address] [place] [address] EMISSIONS ENGINEER: Alec Payan M.D. For any questions, [...] 12/27/2019 Unless otherwise specified, test(s) performed at: [facility], [address] [place] [address] EMISSIONS ENGINEER: Alec Payan M.D. For any questions, please call customer service at FREQUENCY:MONTHLY Resulting Agency Comment Specimen source: Blood Ernie Pompa MD LAB BLOOD ORDERABLES Performing Organization Address City/[facility]/ZIP Code Phon e Number APS SPECTRA [facility] documented in this encounter Visit Diagnoses Not on filedocumented in this encounter
--- OUTSIDE RECORDS SUMMARY | 2021-11-25 10:58 | XMS_ITS | Encounter Summary ---
:1945 Author Organization [facility] Address [address] [place] [address] Care Team Providers Name Role Phone Unavailable Primary Care Provider Unavailable Encounter Details Date Type Department Care Team Description 01/29/2020 Treatment [facility] O Ernie Gómez MD [address] [place] [address] [place], [place] [phone] [phone] (Wo rk) Social History Tobacco Use Types Packs/Day Years Used Date Smoking Tobacco: Unknown Comments: Smoking History Info:Patient n ot screened Sex Assigned at Date Recorded Not on file documented as of this encounter Miscellaneous Notes Dialysis Note - Ernie Pompa MD - 01/29/2020 9:56 AM CST Date: Jan 29, 2020 Patient Name: Shaun Ocampo : 1945 Chart #: [id number] Sex: M This patient was personally seen [...] AM ) BP (sit): 133/53 AP(-) / MARKETING COMMUNICATIONS COORDINATOR: 267/328 Pulse: 71 Chairside data as of [...] Every 2 weeks During Dialysis 01/22/2020 01/20/2021 MANAGEMENT ENGINEER: Ernie Pompa MD LOCATION: [facility] [phone] SCHEDULE: M-W-F 2nd Shift ACCESS: EDW: kg. [...] He had infiltration last week, dialyzed at [facility] on Sat and went well, [...] (07/24/19) Vascular Access Assessment: Type of access: [id number]/2019 Surgeon - Lary GARDNER Access working well Impression and Plan No changes, stable dialysis Discussed lowering phos in diet today and will use binder next month if not in control Ernie Popma MD [ Signed And locked electronically On 01/29/2020 at 09:57:54 AM ] Transcribed: Ernie Pompa ( 01/29/2020 ) documented in this encounter Plan of Treatment Not on filedocumented as of this encounter Visit Diagnoses Not on filedocumented in this encounter
--- OUTSIDE RECORDS SUMMARY | 2021-11-25 10:58 | XMS_ITS | Encounter Summary ---
:1945 Author Organization [facility] Address [address] [place] [address] Care Team Providers Name Role Phone Unavailable Primary Care Provider Unavailable Encounter Details Date Type Department Care Team Description 11/20/2019 Orders Only [facility] O f Ernie Guzmán MD [address] [place] [address] [place], [place] [phone] (Wo rk) Social History Tobacco Use [...] MD LAB BLOOD ORDERABLES Performing Organization Address City/[facility]/ZIP Code Phon e Number APS SPECTRA [facility] POST CHEMISTRY (11/20/2019) athologist Signature BUN Post 12 6 - 19 APS SPECTRA Dialysis mg/dL [facility] Specimen (Source) Anatomical Collection Method Collection Time Re ceived Time Location / / Volume Laterality 11/20/2019 11/21/2019 1:14 PM CDT Narrative APS SPECTRA [facility] - 11/21/2019 Unless otherwise specified, test(s) performed at: [facility], [address] [place] [address] HEALTH TECHNICIAN: Alec Payan M.D. For any questions, please call customer service at FREQUENCY:MONTHLY Resulting Agency Comment Specimen source: Plasma Ernie Pompa MD LAB BLOOD ORDERABLES Performing Organization Address City/[facility]/ZIP Code Phon e Number APS [...] APS SPECTRA [facility] (ABNORMAL) Spectrae Chemistry (11/20/2019[facility] Signature BUN 51 [...] 11/21/2019 Unless otherwise specified, test(s) performed at: [facility], [address] [place] [address] HEALTH TECHNICIAN: Alec Payan M.D. For any questions, please call customer service at FREQUENCY:MONTHLY Resulting Agency Comment Specimen source: Serum Ernie Pompa MD LAB BLOOD ORDERABLES Performing Organization Address City/State/ZIP Code Phon e Number APS SPECTRA [facility] (ABNORMAL) HEMATOLOGY (11/20/2019) [facility] gist Method Time Signature WBC 6.23 [...] 11/21/2019 Unless otherwise specified, test(s) performed at: [facility], [address] [place] [address] HEALTH TECHNICIAN: Alec Payan M.D. For any questions, please call customer service at FREQUENCY:MONTHLY Resulting Agency Comment Specimen source: Blood Ernie Pompa MD LAB BLOOD ORDERABLES Performing Organization Address City/State/ZIP Code Phon e Number APS SPECTRA [facility] documented in this encounter Visit Diagnoses Not on filedocumented in this encounter
--- OUTSIDE RECORDS SUMMARY | 2021-11-25 10:58 | XMS_ITS | Encounter Summary ---
:1945 Author Organization [facility] Address [address] [place] [address] [address] [place] [address] Care Team Providers Name Role Phone Unavailable Primary Care Provider Unavailable Encounter Details Date Type Department Care Team Description 03/04/2020 Orders Only [facility] O f Ernie Guzmán MD [phone] [place] [address] [place], [place] [phone] (Wo rk) Social History Tobacco Use [...] / Volume Laterality 03/04/2020 03/06/2020 1:44 PM CERTIFIED FIRST ASSISTANT Narrative APS SPECTRA [facility] - 03/06/2020 Unless otherwise specified, test(s) performed at: [facility], [address] [place] [address] SQL SERVER DBA DEVELOPER: Alec Payan M.D. For any questions, please call customer service at FREQUENCY:OTHER Resulting Agency Comment Specimen source: Blood Ernie Pompa MD LAB BLOOD ORDERABLES Performing Organization Address City/State/ZIP Code Phon e Number APS SPECTRA [facility] documented in this encounter Visit Diagnoses Not on filedocumented in this encounter
--- OUTSIDE RECORDS SUMMARY | 2021-11-25 10:58 | XMS_ITS | Encounter Summary ---
:1945 Author Organization [facility] Address [address] [place] [address] Care Team Providers Name Role Phone Unavailable Primary Care Provider Unavailable Encounter Details Date Type Department Care Team Description 02/19/2020 Treatment [facility] O Ernie Gómez MD [address] [place] [address] [place], [place] [phone] [address] [phone] (Wo rk) Social History Tobacco Use Types Packs/Day Years Used Date Smoking Tobacco: Unknown Comments: Smoking History Info:Patient n ot screened Sex Assigned at Date Recorded Not on file documented as of this encounter Miscellaneous Notes Dialysis Note - Ernie Pompa MD - 02/19/2020 10:37 AM CST Date: Feb 19, 2020 Patient Name: Shaun Ocampo : 1945 Chart #: [id number] Sex: M This patient was personally seen [...] AM ) BP (sit): 104/47 AP(-) / BREAKFAST HOST: 260/215 Pulse: 84 Chairside data as of [...] Every 4 weeks During Dialysis 02/12/2020 02/10/2021 MANAGER ENTERPRISE CONTENT MANAGEMENT: Ernie Pompa MD LOCATION: [facility] [phone] SCHEDULE: M-W-F 2nd Shift EDW: kg. DIALYZER: [...] prescription. Vascular Access Assessment Type of access: [id number]/2019 Surgeon Annita KUMARW Access working well Anemia [...] above goal. Intact PTH is at goal. Food Service will adjust binders and vitamin D per [...]
--- OUTSIDE RECORDS SUMMARY | 2021-11-25 10:58 | XMS_ITS | Encounter Summary ---
:1945 Author Organization [facility] Address [address] [place] [address] Care Team Providers Name Role Phone Unavailable Primary Care Provider Unavailable Encounter Details Date Type Department Care Team Description 03/25/2020 Orders Only [facility] O f Ernie Guzmán MD [address] [place] [address] [place], [place] [phone] (Wo rk) Social History Tobacco Use [...] Volume Laterality 03/25/2020 03/27/2020 11:1 6 AM GOLF CART REPAIRER Narrative APS SPECTRA [facility] - 03/30/2020 Unless otherwise specified, test(s) performed at: [facility], [address] [place] [address] SKI LIFT ATTENDANT: Alec Payan M.D. For any questions, [...] and its performa nce characteristics determined by [facility]. It has not been cleared or approved by the FDA. The laboratory is regulated under CLIA a s qualified to perform high complexity testing. This test is used fo r clinical purposes. It should not be regarded as investigational or fo r research. Specimen (Source) Anatomical Collection Method Collection Time Re ceived Time Location / / Volume Laterality 03/25/2020 03/26/2020 6:29 PM GOLF CART REPAIRER Narrative APS SPECTRA [facility] - 03/28/2020 Unless otherwise specified, test(s) performed at: [facility], [address] [place], [place] [id number] SKI LIFT ATTENDANT: Alec Payan M.D. For any questions, please call customer service at FREQUENCY:MONTHLY Resulting Agency Comment Specimen source: Serum Ernie Pompa MD LAB BLOOD ORDERABLES Performing Organization Address City/[facility]/ZIP Code Phon e Number APS SPECTRA [facility] IMMUNO CHEMISTRY (03/25/2020) P athologist Signature Hep B Surface Negative Negative APS SPECTRA Ag [facility] Specimen (Source) Anatomical Collection Method Collection Time Re ceived Time Location / / Volume Laterality 03/25/2020 03/27/2020 11:1 6 AM GOLF CART REPAIRER Resulting Agency Comment Specimen source: Serum Ernie Leimario CAMPBELL LAB BLOOD ORDERABLES Performing Organization Address City/[facility]/ZIP Code Phon e Number APS SPECTRA [facility] HD KINETICS (03/25/2020) P athologist Signature % Urea 79 65 - 80 % APS SPECTRA Reduction [facility] Specimen (Source) Anatomical Collection Method Collection Time Re ceived Time Location / / Volume Laterality 03/25/2020 03/27/2020 11:1 7 AM GOLF CART REPAIRER Resulting Agency Comment Specimen source: Serum Ernie Leimario CAMPBELL LAB BLOOD ORDERABLES Performing Organization Address City/[facility]/ZIP Code Phon e Number APS SPECTRA [facility] POST CHEMISTRY (03/25/2020) P athologist Signature BUN Post 12 6 - 19 APS SPECTRA Dialysis mg/dL [facility] Specimen (Source) Anatomical Collection Method Collection Time Re ceived Time Location / / Volume Laterality 03/25/2020 03/27/2020 10:5 5 AM GOLF CART REPAIRER Narrative APS SPECTRA [facility] - 03/27/2020 Unless otherwise specified, test(s) performed at: [facility], [address] [place] [address] SKI LIFT ATTENDANT: Alec Payan M.D. For any questions, please call customer service at FREQUENCY:MONTHLY Resulting Agency Comment Specimen source: Plasma Ernie Pompa MD LAB BLOOD ORDERABLES Performing Organization Address City/State/ZIP Code Phon e Number APS SPECTRA [facility] (ABNORMAL) Spectrae Chemistry (03/25/2020) [facility] Method Time Signature BUN 58 (H) [...] Volume Laterality 03/25/2020 03/27/2020 11:1 6 AM GOLF CART REPAIRER Narrative APS SPECTRA [facility] - 03/28/2020 Unless otherwise specified, test(s) performed at: [facility], [address] [place] [address] SKI LIFT ATTENDANT: Alec Payan M.D. For any questions, please call customer service at FREQUENCY:MONTHLY Resulting Agency Comment Specimen source: Serum Ernie Pompa MD LAB BLOOD ORDERABLES Performing Organization Address City/[facility] Phon e Number APS SPECTRA [facility] (ABNORMAL) Spectrae Chemistry (03/25/2020) P athologist Signature PTH 828 (H) 16 - 80 APS SPECTRA pg/mL [facility] Specimen (Source) Anatomical Collection Method Collection Time Re ceived Time Location / / Volume Laterality 03/25/2020 03/26/2020 5:05 PM GOLF CART REPAIRER Narrative APS SPECTRA [facility] - 03/27/2020 Unless otherwise specified, test(s) performed at: [facility], [address] [place] [address] SKI LIFT ATTENDANT: Alce Payan M.D. For any questions, please call customer service at FREQUENCY:MONTHLY Resulting Agency Comment Specimen source: Plasma Ernie Pompa MD LAB BLOOD ORDERABLES Performing Organization Address City/[facility] Phon e Number APS [...] / Volume Laterality 03/25/2020 03/26/2020 5:05 PM GOLF CART REPAIRER Narrative APS SPECTRA [facility] - 03/26/2020 Unless otherwise specified, test(s) performed at: [facility], [address] [place] [address] SKI LIFT ATTENDANT: Alec Payan M.D. For any questions, please call customer service at FREQUENCY:MONTHLY Resulting Agency Comment Specimen source: Blood Ernie Pompa MD LAB BLOOD ORDERABLES Performing Organization Address City/State/ZIP Code Phon e Number APS SPECTRA [facility] documented in this encounter Visit Diagnoses Not on filedocumented in this encounter
--- OUTSIDE RECORDS SUMMARY | 2021-11-25 10:58 | XMS_ITS | Encounter Summary ---
:1945 Author Organization [facility] Address [address] [place] [address] Care Team Providers Name Role Phone Unavailable Primary Care Provider Unavailable Encounter Details Date Type Department Care Team Description 02/05/2020 Orders Only [facility] O f Ernie Guzmán MD [address] [place] [address] [place], [place] [phone] (Wo rk) Social History Tobacco Use [...] Volume Laterality 02/05/2020 02/06/2020 10:4 4 AM DISTILLER Narrative APS SPECTRA [facility] - 02/06/2020 Unless otherwise specified, test(s) performed at: [facility], [address] [place] [address] BULB FARMWORKER: Alec Payan M.D. For any questions, please call customer service at FREQUENCY:OTHER Resulting Agency Comment Specimen source: Blood Ernie Pompa MD LAB BLOOD ORDERABLES Performing Organization Address City/State/ZIP Code Phon e Number APS SPECTRA [facility] documented in this encounter Visit Diagnoses Not on filedocumented in this encounter
--- OUTSIDE RECORDS SUMMARY | 2021-11-25 10:58 | XMS_ITS | Encounter Summary ---
:1945 Author Organization [facility] Address [address] [place] [address] [address] [place] [address] Care Team Providers Name Role Phone Unavailable Primary Care Provider Unavailable Encounter Details Date Type Department Care Team Description 02/26/2020 Orders Only [facility] O f Ernie Guzmán MD [address] [place] [address] [place], [place] [phone] (Wo rk) Social History Tobacco Use [...] / Volume Laterality 02/26/2020 02/27/2020 2:55 PM CROP SPECIALIST Narrative APS SPECTRA [facility] - 02/27/2020 Unless otherwise specified, test(s) performed at: [facility], [address] [place] [address] RESIST COATER DEVELOPER: Alec Payan M.D. For any questions, please call customer service at FREQUENCY:OTHER Resulting Agency Comment Specimen source: Blood Ernie Pompa MD LAB BLOOD ORDERABLES Performing Organization Address City/State/ZIP Code Phon e Number APS SPECTRA [facility] documented in this encounter Visit Diagnoses Not on filedocumented in this encounter
--- OUTSIDE RECORDS SUMMARY | 2021-11-25 10:58 | XMS_ITS | Encounter Summary ---
:1945 Author Organization [facility] Address [address] [place] [address] Care Team Providers Name Role Phone Unavailable Primary Care Provider Unavailable Encounter Details Date Type Department Care Team Description 11/13/2019 Orders [facility] O f Ernie Guzmán MD [address] [place] [address] [place], [place] [phone] (Wo rk) Social History Tobacco Use [...] 11/14/2019 Unless otherwise specified, test(s) performed at: [facility], [address] [place] [address] LAMPS TESTER AND INSPECTOR: Alec Payan M.D. For any questions, [...] 11/14/2019 Unless otherwise specified, test(s) performed at: [facility], [address] [place] [address] LAMPS TESTER AND INSPECTOR: Alec Payan M.D. For any questions, please call customer service at FREQUENCY:OTHER Resulting Agency Comment Specimen source: Blood Ernie Pompa MD LAB BLOOD ORDERABLES Performing Organization Address City/[facility] [place]/[facility] Phon e Number APS SPECTRA [facility] documented in this encounter Visit Diagnoses Not on filedocumented in this encounter
--- OUTSIDE RECORDS SUMMARY | 2021-11-25 10:58 | XMS_ITS | Encounter Summary ---
:1945 Author Organization [facility] Address [address] [place] [address] Care Team Providers Name Role Phone Unavailable Primary Care Provider Unavailable Encounter Details Date Type Department Care Team Description 02/12/2020 Orders Only [facility] O f Ernie Guzmán MD [address] [place] [address] [place], [place] [phone] (Wo rk) Social History Tobacco Use [...] Volume Laterality 02/12/2020 02/14/2020 12:5 9 PM FRONT END ENGINEER Narrative APS SPECTRA [facility] - 02/14/2020 Unless otherwise specified, test(s) performed at: [facility], [address] [place] [address] CDL TEAM TRUCK DRIVER: Alec Payan M.D. For any questions, please call customer service at FREQUENCY:OTHER Resulting Agency Comment Specimen source: Blood Ernie Pompa MD LAB BLOOD ORDERABLES Performing Organization Address City/State/ZIP Code Phon e Number APS SPECTRA [facility] documented in this encounter Visit Diagnoses Not on filedocumented in this encounter
--- OUTSIDE RECORDS SUMMARY | 2021-11-25 10:58 | XMS_ITS | Encounter Summary ---
:1945 Author Organization [facility] Address [address] [place] [address] Care Team Providers Name Role Phone Unavailable Primary Care Provider Unavailable Encounter Details Date Type Department Care Team Description 03/25/2020 Treatment [facility] O f Ernie Guzmán MD [address] [place] [address] [place], [place] [phone] (Wo rk) Social History Tobacco Use Types Packs/Day Years Used Date Smoking Tobacco: Unknown Comments: Smoking History Info:Patient n ot screened Sex Assigned at Date Recorded Not on file documented as of this encounter Miscellaneous Notes Dialysis Note - Ernie Pompa MD - 03/25/2020 10:39 AM CST Date: Mar 25, 2020 Patient Name: Shaun Ocampo : 1945 Chart #: [id number] Sex: M This patient was personally seen [...] AM ) BP (sit): 115/62 AP(-) / REGISTERED RADIOLOGIC TECHNOLOGIST: 248/203 Pulse: 72 Chairside data as of [...] Every 4 weeks During Dialysis 03/18/2020 03/17/2021 STATE FARM AGENT TEAM MEMBER: Ernie Pompa MD LOCATION: [phone] SCHEDULE: M-W-F 2nd Shift EDW: kg. DIALYZER: [...] prescription. Vascular Access Assessment Type of access: [id number]/2019 Surgeon - Lary KUMARW Access working well [...] above goal. Intact PTH is at goal. Photocopying Equipment Mechanic will adjust binders and vitamin D [...]
--- OUTSIDE RECORDS SUMMARY | 2021-11-25 10:58 | XMS_ITS | Encounter Summary ---
:1945 Author Organization [facility] Address [address] [place] [address] Care Team Providers Name Role Phone Unavailable Primary Care Provider Unavailable Encounter Details Date Type Department Care Team Description 11/06/2019 Treatment [facility] O Ernie Gómez MD [address] [place] [address] [place], [place] [phone] [phone] (Wo rk) Social History Tobacco Use Types Packs/Day Years Used Date Smoking Tobacco: Unknown Comments: Smoking History Info:Patient n ot screened Sex Assigned at Date Recorded Not on file documented as of this encounter Miscellaneous Notes Dialysis Note - Ernie Pompa MD - 11/06/2019 12:22 PM CDT Date: Nov 06, 2019 Patient Name: Shaun Ocampo : 1945 Chart #: [id number] Sex: M This patient was personally seen [...] PM ) BP (sit): 139/63 AP(-) / TELEGRAPH OPERATOR: 235/181 Pulse: 64 Chairside data as of [...] IVP 1X Week During Dialysis 10/28/2019 10/19/2020 LOCOMOTIVE BOILERMAKER: Ernie Pompa MD LOCATION: [phone] SCHEDULE: M-W- 2nd Shift EDW: kg. DIALYZER: [...] had infiltration last week, dialyzed at [facility] on Sat and went well, access ok [...] prescription. Vascular Access Assessment Type of access: [id number]/2019 Surgeon - Lary KUMARW Access working well [...] above goal. Intact PTH is below goal. Global Analytics Head will adjust binders and vitamin D per [...]
--- OUTSIDE RECORDS SUMMARY | 2021-11-25 10:58 | XMS_ITS | Encounter Summary ---
:1945 Author Organization [facility] Address [address] [place] [address] Care Team Providers Name Role Phone Unavailable Primary Care Provider Unavailable Encounter Details Date Type Department Care Team Description 12/04/2019 Orders Only [facility] f Ernie Guzmán MD [address] [place] [address] [place], [place] [phone] (Wo rk) Social History Tobacco Use [...] 12/05/2019 Unless otherwise specified, test(s) performed at: [facility], [address] [place] [address] LOCAL FLATBED DRIVER: Alec Payan M.D. For any questions, [...] 12/05/2019 Unless otherwise specified, test(s) performed at: [facility], [address] [place] [address] LOCAL FLATBED DRIVER: Alec Payan M.D. For any questions, please call customer service at FREQUENCY:OTHER Resulting Agency Comment Specimen source: Blood Ernie Pompa MD LAB BLOOD ORDERABLES Performing Organization Address City/[facility] Code Phon e Number APS SPECTRA [facility] documented in this encounter Visit Diagnoses Not on filedocumented in this encounter
--- OUTSIDE RECORDS SUMMARY | 2021-11-25 10:58 | XMS_ITS | Encounter Summary ---
:1945 Author Organization [facility] Address [address] [place] [address] Care Team Providers Name Role Phone Unavailable Primary Care Provider Unavailable Encounter Details Date Type Department Care Team Description 01/08/2020 Treatment [facility] O Ernie Gómez MD [address] [place] [address] [place], [place] [address] [phone] (Wo rk) Social History Tobacco Use Types Packs/Day Years Used Date Smoking Tobacco: Unknown Comments: Smoking History Info:Patient n ot screened Sex Assigned at Date Recorded Not on file documented as of this encounter Miscellaneous Notes Dialysis Note - Ernie Pompa MD - 01/08/2020 12:11 PM CDT Date: Jan 08, 2020 Patient Name: Shaun Ocampo : 1945 Chart #: [id number] Sex: M This patient was personally seen [...] PM ) BP (sit): 118/58 AP(-) / DIE OPERATOR: 261/204 Pulse: 66 Chairside data as of [...] IVP 1X Week During Dialysis 10/28/2019 10/19/2020 HOMEBOUND TEACHER: Ernie Pompa MD LOCATION: [phone] SCHEDULE: -W- 2nd Shift ACCESS: EDW: kg. [...] (07/24/19) Vascular Access Assessment: Type of access: Kbvapux44/2019 Surgeon - Lary GARDNER Access working well Impression and Plan No changes, stable dialysis Ernie Pompa MD [ Signed And locked electronically On 01/08/2020 at 12:12:00 PM ] Transcribed: Ernie Pompa ( 01/08/2020 ) documented in this encounter Plan of Treatment Not on filedocumented as of this encounter Visit Diagnoses Not on filedocumented in this encounter
--- OUTSIDE RECORDS SUMMARY | 2021-11-25 10:58 | XMS_ITS | Encounter Summary ---
:1945 Author Organization [facility] Address [address] [place] [address] Care Team Providers Name Role Phone Unavailable Primary Care Provider Unavailable Encounter Details Date Type Department Care Team Description 03/04/2020 Treatment [facility] O Ernie Gómez MD [address] [place] [address] [place], [place] [address] [phone] (Wo rk) Social History Tobacco Use Types Packs/Day Years Used Date Smoking Tobacco: Unknown Comments: Smoking History Info:Patient n ot screened Sex Assigned at Date Recorded Not on file documented as of this encounter Miscellaneous Notes Dialysis Note - Ernie Pompa MD - 03/04/2020 9:33 AM CST Date: Mar 04, 2020 Patient Name: Shaun Ocampo : 1945 Chart #: [id number] Sex: M This patient was personally seen [...] AM ) BP (sit): 95/48 AP(-) / CHARGE RN: 248/204 Pulse: 71 Chairside data as of [...] Every 4 weeks During Dialysis 02/12/2020 02/10/2021 VISITOR SERVICES TECHNICIAN: Ernie Pompa MD LOCATION: [facility] [phone] SCHEDULE: M-W- 2nd Shift ACCESS: EDW: kg. [...] (07/24/19) Vascular Access Assessment: Type of access: [id number]/2019 Surgeon - Lary GARDNER Access working well [...]
--- OUTSIDE RECORDS SUMMARY | 2021-11-25 10:58 | XMS_ITS | Encounter Summary ---
:1945 Author Organization [facility] Address [address] [place] [address] Care Team Providers Name Role Phone Unavailable Primary Care Provider Unavailable Encounter Details Date Type Department Care Team Description 11/06/2019 Orders Only [facility] f Ernie Guzmán MD [address] [place] [address] [place], [place] [phone] (Wo rk) Social History Tobacco Use [...] in this encounter Results (ABNORMAL) HEMATOLOGY (11/06/2019) [facility] gist Method Time Signature Neutrophils 75.2 [...] 11/07/2019 Unless otherwise specified, test(s) performed at: [facility], [address] [place] [address] GENERAL REPAIRER: Alec Payan M.D. For any questions, please call customer service at FREQUENCY:OTHER Resulting Agency Comment Specimen source: Blood Ernie Pompa MD LAB BLOOD ORDERABLES Performing Organization Address City/State/ZIP Code Phon e Number APS SPECTRA [facility] documented in this encounter Visit Diagnoses Not on filedocumented in this encounter
--- OUTSIDE RECORDS SUMMARY | 2021-11-25 10:59 | XMS_ITS | Encounter Summary ---
:1945 Author Organization [facility] Address [address] [place] [address] Care Team Providers Name Role Phone Unavailable Primary Care Provider Unavailable Encounter Details Date Type Department Care Team Description 08/28/2019 Orders Only [facility] O f Ernie Guzmán MD [address] [place] [address] [place], [place] [phone] (Wo rk) Social History Tobacco Use [...] 08/29/2019 Unless otherwise specified, test(s) performed at: [facility], [address] [place] [address] BUS AND TROLLEY INSPECTING DISPATCHER: Alec Payan M.D. For any questions, please call customer service at FREQUENCY:OTHER Resulting Agency Comment Specimen source: Blood Ernie Pompa MD LAB BLOOD ORDERABLES Performing Organization Address City/State/ZIP Code Phon e Number APS SPECTRA [facility] documented in this encounter Visit Diagnoses Not on filedocumented in this encounter
--- OUTSIDE RECORDS SUMMARY | 2021-11-25 10:59 | XMS_ITS | Encounter Summary ---
:1945 Author Organization [facility] Address [address] [place] [address] Care Team Providers Name Role Phone Unavailable Primary Care Provider Unavailable Encounter Details Date Type Department Care Team Description 08/28/2019 Treatment [facility] O Ernie Gómez MD [address] [place] [address] [place], [place] [phone] (Wo rk) Social History Tobacco Use Types Packs/Day Years Used Date Smoking Tobacco: Unknown Comments: Smoking History Info:Patient n ot screened Sex Assigned at Date Recorded Not on file documented as of this encounter Miscellaneous Notes Dialysis Note - Ernie Pompa MD - 08/28/2019 12:51 PM CDT Date: Aug 28, 2019 Patient Name: Shaun Ocampo : 1945 Chart #: [id number] Sex: M This patient was personally seen [...] PM ) BP (sit): 147/58 AP(-) / DIRECTOR INPATIENT HEADACHE PROGRAM: 198/168 Pulse: 65 Chairside data as of [...] IVP Every Treatment During Dialysis 08/26/2019 09/16/2019 SKIP LOADER: Ernie Pompa MD LOCATION: [phone] SCHEDULE: -- 2nd Shift EDW: kg. DIALYZER: [...] prescription. Vascular Access Assessment Type of access: Eknlbqf30/2019 Surgeon - Lary GARDNER Access working well [...] at goal. Intact PTH is below goal. Full Charge Bookkeeper will adjust binders and vitamin D per [...]
--- OUTSIDE RECORDS SUMMARY | 2021-11-25 10:59 | XMS_ITS | Encounter Summary ---
:1945 Author Organization [facility] Address [address] [place] [address] Care Team Providers Name Role Phone Unavailable Primary Care Provider Unavailable Encounter Details Date Type Department Care Team Description 08/21/2019 Orders Only [facility] f Ernie Guzmán MD [address] [place] [address] [place], [place] [phone] (Wo rk) Social History Tobacco Use [...] 08/23/2019 Unless otherwise specified, test(s) performed at: [facility], [address] [place], [place] [id number] CATTLE DRIVER: Alec Payan M.D. For any questions, [...] 08/23/2019 Unless otherwise specified, test(s) performed at: [facility], [address] [place] [address] CATTLE DRIVER: Alec Pyaan M.D. For any questions, please call customer service at FREQUENCY:MONTHLY Resulting Agency Comment Specimen source: Plasma Ernie Pompa MD LAB BLOOD ORDERABLES Performing Organization Address City/State/ZIP Code Phon e Number APS SPECTRA [facility] (ABNORMAL) Spectrae Chemistry (08/21/2019) [facility] Method Time Signature BUN 40 (H) 6 [...] 08/23/2019 Unless otherwise specified, test(s) performed at: [facility], [address] [place] [address] CATTLE DRIVER: Alec Payan M.D. For any questions, [...] 08/22/2019 Unless otherwise specified, test(s) performed at: [facility], [address] [place] [address] CATTLE DRIVER: Alec Payan M.D. For any questions, please call customer service at FREQUENCY:MONTHLY Resulting Agency Comment Specimen source: Blood Ernie Pompa MD LAB BLOOD ORDERABLES Performing Organization Address City/State/ZIP Code Phon e Number APS SPECTRA [facility] documented in this encounter Visit Diagnoses Not on filedocumented in this encounter
--- OUTSIDE RECORDS SUMMARY | 2021-11-25 10:59 | XMS_ITS | Encounter Summary ---
:1945 Author Organization [facility] Address [address] [place] [address] Care Team Providers Name Role Phone Unavailable Primary Care Provider Unavailable Encounter Details Date Type Department Care Team Description 08/14/2019 Orders [facility] O f Ernie Guzmán MD [address] [place] [address] [place], [place] [phone] (Wo rk) Social History Tobacco Use [...] 08/16/2019 Unless otherwise specified, test(s) performed at: [facility], [address] [place] [address] TIRE MOLDER: Alec Payan M.D. For any questions, please call customer service at FREQUENCY:OTHER Resulting Agency Comment Specimen source: Blood Ernie Pompa MD LAB BLOOD ORDERABLES Performing Organization Address City/State/ZIP Code Phon e Number APS SPECTRA [facility] documented in this encounter Visit Diagnoses Not on filedocumented in this encounter
--- OUTSIDE RECORDS SUMMARY | 2021-11-25 10:59 | XMS_ITS | Encounter Summary ---
:1945 Author Organization [facility] Address [address] [place] [address] Care Team Providers Name Role Phone Unavailable Primary Care Provider Unavailable Encounter Details Date Type Department Care Team Description 09/25/2019 Orders [facility] O f Ernie Guzmán MD [address] [place] [address] [place], [place] [phone] (Wo rk) Social History Tobacco Use [...] in this encounter Results (ABNORMAL) HEMATOLOGY (09/25/2019) [facility] gist Method Time Signature Neutrophils [...] 09/26/2019 Unless otherwise specified, test(s) performed at: [facility], [address] [place], [place] [id number] DIRECTIONAL DRILLER: Alec Payan M.D. For any questions, please call customer service at FREQUENCY:OTHER Resulting Agency Comment Specimen source: Blood Ernie Pompa MD LAB BLOOD ORDERABLES Performing Organization Address City/State/ZIP Code Phon e Number APS SPECTRA [facility] documented in this encounter Visit Diagnoses Not on filedocumented in this encounter
--- OUTSIDE RECORDS SUMMARY | 2021-11-25 10:59 | XMS_ITS | Encounter Summary ---
:1945 Author Organization [facility] Address [address] [place] [address] Care Team Providers Name Role Phone Unavailable Primary Care Provider Unavailable Encounter Details Date Type Department Care Team Description 09/11/2019 Orders [facility] O f Ernie Guzmán MD [address] [place] [address] [place], [place] [phone] (Wo rk) Social History Tobacco Use [...] in this encounter Results (ABNORMAL) HEMATOLOGY (09/11/2019) [facility] gist Method Time Signature Neutrophils 73.8 [...] 09/13/2019 Unless otherwise specified, test(s) performed at: [facility], [address] [place] [address] SEMICONDUCTOR MANUFACTURING TECHNICIAN: Alec Payan M.D. For any questions, please call customer service at FREQUENCY:OTHER Resulting Agency Comment Specimen source: Blood Ernie Pompa MD LAB BLOOD ORDERABLES Performing Organization Address City/State/ZIP Code Phon e Number APS SPECTRA [facility] documented in this encounter Visit Diagnoses Not on filedocumented in this encounter
--- OUTSIDE RECORDS SUMMARY | 2021-11-25 10:59 | XMS_ITS | Encounter Summary ---
:1945 Author Organization [facility] Address [address] [place] [address] Care Team Providers Name Role Phone Unavailable Primary Care Provider Unavailable Encounter Details Date Type Department Care Team Description 10/16/2019 Orders [facility] O f Ernie Guzmán MD [address] [place] [address] [place], [place] [phone] (Wo rk) Social History Tobacco Use [...] in this encounter Results (ABNORMAL) HEMATOLOGY (10/16/2019) [facility] gist Method Time Signature Neutrophils 74.6 [...] 10/17/2019 Unless otherwise specified, test(s) performed at: [facility], [address] [place] [address] ACCOUNT INSTALLATION SPECIALIST: Alec Payan M.D. For any questions, please call customer service at FREQUENCY:OTHER Resulting Agency Comment Specimen source: Blood Ernie Pompa MD LAB BLOOD ORDERABLES Performing Organization Address City/State/ZIP Code Phon e Number APS SPECTRA [facility] documented in this encounter Visit Diagnoses Not on filedocumented in this encounter
--- OUTSIDE RECORDS SUMMARY | 2021-11-25 10:59 | XMS_ITS | Encounter Summary ---
:1945 Author Organization [facility] Address [address] [place] [address] Care Team Providers Name Role Phone Unavailable Primary Care Provider Unavailable Encounter Details Date Type Department Care Team Description 11/04/2019 Orders [facility] O f Ernie Guzmán MD [address] [place] [address] [place], [place] [phone] (Wo rk) Social History Tobacco Use [...] in this encounter Results (ABNORMAL) HEMATOLOGY (11/04/2019) [facility] gist Method Time Signature Neutrophils 77.4 (H) [...] 11/05/2019 Unless otherwise specified, test(s) performed at: [facility], [address] [place] [address] RECONNAISSANCE MAN: Alec Payan M.D. For any questions, please call customer service at FREQUENCY:OTHER Resulting Agency Comment Specimen source: Blood Ernie Pompa MD LAB BLOOD ORDERABLES Performing Organization Address City/State/ZIP Code Phon e Number APS SPECTRA [facility] documented in this encounter Visit Diagnoses Not on filedocumented in this encounter
--- OUTSIDE RECORDS SUMMARY | 2021-11-25 10:59 | XMS_ITS | Encounter Summary ---
:1945 Author Organization [facility] Address [address] [place] [address] Care Team Providers Name Role Phone Unavailable Primary Care Provider Unavailable Encounter Details Date Type Department Care Team Description 08/07/2019 Orders [facility] O f Ernie Guzmán MD [address] [place] [address] [place], [place] [phone] (Wo rk) Social History Tobacco Use [...] 08/08/2019 Unless otherwise specified, test(s) performed at: [facility] [address] [place] [address] GRINDER OPERATOR AUTOMATIC: Alec Payan M.D. For any questions, please call customer service at FREQUENCY:OTHER Resulting Agency Comment Specimen source: Blood Ernie Pompa MD LAB BLOOD ORDERABLES Performing Organization Address City/State/ZIP Code Phon e Number APS SPECTRA [facility] documented in this encounter Visit Diagnoses Not on filedocumented in this encounter
--- OUTSIDE RECORDS SUMMARY | 2021-11-25 10:59 | XMS_ITS | Encounter Summary ---
:1945 Author Organization [facility] Address [address] [place] [address] Care Team Providers Name Role Phone Unavailable Primary Care Provider Unavailable Encounter Details Date Type Department Care Team Description 07/29/2019 Orders [facility] O f Ernie Guzmán MD [address] [place] [address] [place], [place] [phone] (Wo rk) Social History Tobacco Use [...] 07/30/2019 Unless otherwise specified, test(s) performed at: [facility], [address] [place] [address] FOSTER CARE SOCIAL WORKER: Alec Payan M.D. For any questions, please call customer service at FREQUENCY:OTHER Resulting Agency Comment Specimen source: Serum Ernie Pompa MD LAB BLOOD ORDERABLES Performing Organization Address City/State/ZIP Code Phon e Number APS SPECTRA [facility] documented in this encounter Visit Diagnoses Not on filedocumented in this encounter
--- OUTSIDE RECORDS SUMMARY | 2021-11-25 10:59 | XMS_ITS | Encounter Summary ---
:1945 Author Organization [facility] Address [address] [place] [address] Care Team Providers Name Role Phone Unavailable Primary Care Provider Unavailable Encounter Details Date Type Department Care Team Description 10/02/2019 Orders [facility] O f Ernie Guzmán MD [address] [place] [address] [place], [place] [phone] (Wo rk) Social History Tobacco Use [...] in this encounter Results (ABNORMAL) HEMATOLOGY (10/02/2019) [facility] gist Method Time Signature Neutrophils 74.2 [...] 10/03/2019 Unless otherwise specified, test(s) performed at: [facility], [address] [place] [address] POLICE GUARD: Alec Payan M.D. For any questions, please call customer service at FREQUENCY:OTHER Resulting Agency Comment Specimen source: Blood Ernie Pompa MD LAB BLOOD ORDERABLES Performing Organization Address City/State/ZIP Code Phon e Number APS SPECTRA [facility] documented in this encounter Visit Diagnoses Not on filedocumented in this encounter
--- OUTSIDE RECORDS SUMMARY | 2021-11-25 10:59 | XMS_ITS | Encounter Summary ---
:1945 Author Organization [facility] Address [address] [place] [address] Care Team Providers Name Role Phone Unavailable Primary Care Provider Unavailable Encounter Details Date Type Department Care Team Description 10/09/2019 Orders [facility] O f Ernie Guzmán MD [address] [place] [address] [place], [place] [phone] (Wo rk) Social History Tobacco Use [...] 10/10/2019 Unless otherwise specified, test(s) performed at: [facility], [address] [place] [address] BACK HANGER: Alec Payan M.D. For any questions, please call customer service at FREQUENCY:OTHER Resulting Agency Comment Specimen source: Serum Ernie Pompa MD LAB BLOOD ORDERABLES Performing Organization Address City/State/[facility] Code Phon e Number APS [...] 10/10/2019 Unless otherwise specified, test(s) performed at: [facility], [address] [place] [address] BACK HANGER: Alec Payan M.D. For any questions, please call customer service at FREQUENCY:OTHER Resulting Agency Comment Specimen source: Blood Ernie Pompa MD LAB BLOOD ORDERABLES Performing Organization Address City/[facility] Code Phon e Number APS SPECTRA [facility] documented in this encounter Visit Diagnoses Not on filedocumented in this encounter
--- OUTSIDE RECORDS SUMMARY | 2021-11-25 10:59 | XMS_ITS | Encounter Summary ---
:1945 Author Organization [facility] Address [address] [place] [address] Care Team Providers Name Role Phone Unavailable Primary Care Provider Unavailable Encounter Details Date Type Department Care Team Description 07/31/2019 Orders [facility] O f Ernie Guzmán MD [address] [place] [address] [place], [place] [phone] (Wo rk) Social History Tobacco Use [...] 08/01/2019 Unless otherwise specified, test(s) performed at: [facility], [address] [place] [address] CABLE TECHNICIAN: Alec Payan M.D. For any questions, please call customer service at FREQUENCY:OTHER Resulting Agency Comment Specimen source: Blood Ernie Pompa MD LAB BLOOD ORDERABLES Performing Organization Address City/State/ZIP Code Phon e Number APS SPECTRA [facility] documented in this encounter Visit Diagnoses Not on filedocumented in this encounter
--- OUTSIDE RECORDS SUMMARY | 2021-11-25 10:59 | XMS_ITS | Encounter Summary ---
:1945 Author Organization [facility] Address [address] [place] [address] Care Team Providers Name Role Phone Unavailable Primary Care Provider Unavailable Encounter Details Date Type Department Care Team Description 08/07/2019 Treatment [facility] f Ernie Guzmán MD [address] [place] [address] [place], [place] [phone] (Wo rk) Social History Tobacco Use Types Packs/Day Years Used Date Smoking Tobacco: Unknown Comments: Smoking History Info:Patient n ot screened Sex Assigned at Date Recorded Not on file documented as of this encounter Miscellaneous Notes Dialysis Note - Ernie Pompa MD - 08/07/2019 5:40 PM CDT Date: August 07, 2019 Patient Name: Shaun Ocampo : 1945 Chart #: [id number] Sex: M This patient was personally seen for a complete visit as part of routine monthly dialysis care. A review of the dialysis treatment, blood pressure, estimated dry weight and recent lab values was made. These were discussed with the patient and staff as necessary. INTERNET CAFE MANAGER: Ernie Pompa MD LOCATION: [phone] SCHEDULE: M-W-F 2nd Shift EDW: kg. DIALYZER: [...] adequacy Vascular Access Assessment Type of access: Eejodoz18/2019 Surgeon - Lary GARDNER Access working well [...] at goal. Intact PTH is below goal. Chainsaw Mechanic will adjust binders and vitamin D [...]
--- OUTSIDE RECORDS SUMMARY | 2021-11-25 10:59 | XMS_ITS | Encounter Summary ---
:1945 Author Organization [facility] Address [address] [place] [address] Care Team Providers Name Role Phone Unavailable Primary Care Provider Unavailable Encounter Details Date Type Department Care Team Description 10/28/2019 Orders Only [facility] O f Ernie Guzmán MD [address] [place] [address] [place], [place] [phone] (Wo rk) Social History Tobacco Use [...] BLOOD ORDERABLES Performing Organization Address City/[facility] Phon e Number APS SPECTRA [facility] POST CHEMISTRY (10/28/2019) P athologist Signature BUN Post 13 6 - 19 APS SPECTRA Dialysis mg/dL [facility] Specimen (Source) Anatomical Collection Method Collection Time Re ceived Time Location / / Volume Laterality 10/28/2019 10/31/2019 3:11 PM CDT Narrative APS SPECTRA [facility] - 10/31/2019 Unless otherwise specified, test(s) performed at: [facility], [address] [place] [address] MORTISING MACHINE OPERATOR: Alec Payan M.D. For any questions, please call customer service at FREQUENCY:OTHER Resulting Agency Comment Specimen source: Plasma Ernie Pompa MD LAB BLOOD ORDERABLES Performing Organization Address [facility] Phon e Number APS SPECTRA [facility] (ABNORMAL) Spectrae Chemistry (10/28/2019) P athologist Signature BUN 54 (H) 6 - 19 APS SPECTRA mg/dL [facility] Specimen (Source) Anatomical Collection Method Collection Time Re ceived Time Location / / Volume Laterality 10/28/2019 10/29/2019 4:43 PM CDT Narrative APS SPECTRA [facility] - 10/29/2019 Unless otherwise specified, test(s) performed at: [facility], [address] [place] [address] MORTISING MACHINE OPERATOR: Alec Payan M.D. For any questions, please call customer service at FREQUENCY:OTHER Resulting Agency Comment Specimen source: Serum Ernie Pompa MD LAB BLOOD ORDERABLES Performing Organization Address [facility] Phon e Number APS SPECTRA [facility] documented in this encounter Visit Diagnoses Not on filedocumented in this encounter
--- OUTSIDE RECORDS SUMMARY | 2021-11-25 10:59 | XMS_ITS | Encounter Summary ---
:1945 Author Organization [facility] Address [address] [place] [address] Care Team Providers Name Role Phone Unavailable Primary Care Provider Unavailable Encounter Details Date Type Department Care Team Description 09/18/2019 Orders Only [facility] O f Ernie Guzmán MD [phone] [place] [address] [place], [place] [phone] (Wo rk) Social History Tobacco Use [...] 09/20/2019 Unless otherwise specified, test(s) performed at: [email or web address], [address] [place] [address] EMBEDDED LINUX DEVELOPER: Alec Payan M.D. For any questions, [...] 09/19/2019 Unless otherwise specified, test(s) performed at: [email or web address], [address] [place], [place] [id number] EMBEDDED LINUX DEVELOPER: Alec Payan M.D. For any questions, [...] LAB BLOOD ORDERABLES Performing Organization Address [facility] Code Phon e Number APS SPECTRA [...] BANK TEST ORDERABL ES Performing Organization Address City/[facility]/ZIP Code [...] 09/19/2019 Unless otherwise specified, test(s) performed at: [email or web address], [address] [place] [address] EMBEDDED LINUX DEVELOPER: Alec Payan M.D. For any questions, please call customer service at FREQUENCY:MONTHLY Resulting Agency Comment Specimen source: Serum Ernie Pompa MD LAB BLOOD ORDERABLES Performing Organization Address City/State/ZIP Code Phon e Number APS SPECTRA [facility] (ABNORMAL) HEMATOLOGY (09/18/2019) [facility] gist Method Time Signature WBC 5.19 [...] 09/19/2019 Unless otherwise specified, test(s) performed at: [email or web address], [address] [place] [address] EMBEDDED LINUX DEVELOPER: Alec Payan M.D. For any questions, please call customer service at FREQUENCY:MONTHLY Resulting Agency Comment Specimen source: Blood Ernie Pompa MD LAB BLOOD ORDERABLES Performing Organization Address City/State/ZIP Code Phon e Number APS SPECTRA [facility] documented in this encounter Visit Diagnoses Not on filedocumented in this encounter
--- OUTSIDE RECORDS SUMMARY | 2021-11-25 10:59 | XMS_ITS | Encounter Summary ---
:1945 Author Organization [facility] Address [address] [place] [address] Care Team Providers Name Role Phone Unavailable Primary Care Provider Unavailable Encounter Details Date Type Department Care Team Description 09/25/2019 Treatment [facility] O Ernie Gómez MD [address] [place] [address] [place], [place] [phone] [phone] (Wo rk) Social History Tobacco Use Types Packs/Day Years Used Date Smoking Tobacco: Unknown Comments: Smoking History Info:Patient n ot screened Sex Assigned at Date Recorded Not on file documented as of this encounter Miscellaneous Notes Dialysis Note - Ernie Pompa MD - 09/25/2019 10:54 AM CDT Date: Sep 25, 2019 Patient Name: Shaun Ocampo : 1945 Chart #: [id number] Sex: M This patient was personally seen [...] AM ) BP (sit): 156/55 AP(-) / DRAW STRING KNOTTER: 212/172 Pulse: 63 Chairside data as of [...] 08/23/2019 08/02/2019 Access Flow > 2000 1510 EXECUTIVE SALES ASSISTANT: Ernie Pompa MD LOCATION: [place] [phone] SCHEDULE: -- 2nd Shift EDW: kg. DIALYZER: [...] prescription. Vascular Access Assessment Type of access: [id number]/2019 Surgeon Annita KUMARW Access working well Anemia [...] at goal. Intact PTH is below goal. Farm Machinery Erector will adjust binders and vitamin D per [...]
--- OUTSIDE RECORDS SUMMARY | 2021-11-25 10:59 | XMS_ITS | Encounter Summary ---
:1945 Author Organization [facility] Address [address] [place] [address] Care Team Providers Name Role Phone Unavailable Primary Care Provider Unavailable Encounter Details Date Type Department Care Team Description 09/04/2019 Orders Only [facility] O f Ernie Guzmán MD [address] [place] [address] [place], [place] [phone] (Wo rk) Social History Tobacco Use [...] 09/05/2019 Unless otherwise specified, test(s) performed at: [facility], [address] [place] [address] MESSENGER COPY: Alec Payan M.D. For any questions, please call customer service at FREQUENCY:OTHER Resulting Agency Comment Specimen source: Blood Ernie Pompa MD LAB BLOOD ORDERABLES Performing Organization Address City/State/ZIP Code Phon e Number APS SPECTRA [facility] documented in this encounter Visit Diagnoses Not on filedocumented in this encounter
--- OUTSIDE RECORDS SUMMARY | 2021-11-25 10:59 | XMS_ITS | Encounter Summary ---
:1945 Author Organization [facility] Address [address] [place] [address] Care Team Providers Name Role Phone Unavailable Primary Care Provider Unavailable Encounter Details Date Type Department Care Team Description 10/09/2019 Treatment [facility] O Ernie Gómez MD [address] [place] [address] [place], [place] [phone] [phone] (Wo rk) Social History Tobacco Use Types Packs/Day Years Used Date Smoking Tobacco: Unknown Comments: Smoking History Info:Patient n ot screened Sex Assigned at Date Recorded Not on file documented as of this encounter Miscellaneous Notes Dialysis Note - Ernie Pompa MD - 10/09/2019 12:54 PM CDT Date: Oct 09, 2019 Patient Name: Shaun Ocampo : 1945 Chart #: [id number] Sex: M This patient was personally seen [...] PM ) BP (sit): 135/54 AP(-) / ALCOHOL LAW ENFORCEMENT AGENT: 204/180 Pulse: 65 Chairside data as of [...] 1000 units IVP Every Treatment 05/01/2019 04/29/2020 JACQUARD FIXER: Ernie Pompa MD LOCATION: [phone] SCHEDULE: M-W- 2nd Shift ACCESS: EDW: kg. [...] He had infiltration last week, dialyzed at [facility] on Sat and went well, [...] (06/19/19) Vascular Access Assessment: Type of access: [id number]/2019 Surgeon - Lary GARDNER Access working well [...]
--- OUTSIDE RECORDS SUMMARY | 2021-11-25 10:59 | XMS_ITS | Encounter Summary ---
:1945 Author Organization [facility] Address [address] [place] [address] Care Team Providers Name Role Phone Unavailable Primary Care Provider Unavailable Encounter Details Date Type Department Care Team Description 10/23/2019 Orders Only [facility] O f Ernie Guzmán MD [phone] [place] [address] [place], [place] [phone] (Wo rk) Social History Tobacco Use [...] 10/25/2019 Unless otherwise specified, test(s) performed at: [facility], [address] [place] [address] FEED MILL MANAGER: Alec Payan M.D. For any questions, please call customer service at FREQUENCY:MONTHLY Resulting Agency Comment Specimen source: Serum Ernie Pompa MD LAB BLOOD ORDERABLES Performing Organization Address City/State/ZIP Code Phon e Number APS SPECTRA [facility] (ABNORMAL) HEMATOLOGY (10/23/2019) [facility] gist Method Time Signature WBC 6.46 [...] 10/24/2019 Unless otherwise specified, test(s) performed at: [facility], [address] [place] [address] FEED MILL MANAGER: Alec Payan M.D. For any questions, please call customer service at FREQUENCY:MONTHLY Resulting Agency Comment Specimen source: Blood Ernie Pompa MD LAB BLOOD ORDERABLES Performing Organization Address City/State/ZIP Code Phon e Number APS SPECTRA [facility] documented in this encounter Visit Diagnoses Not on filedocumented in this encounter
--- OUTSIDE RECORDS SUMMARY | 2021-11-25 10:59 | XMS_ITS | Encounter Summary ---
:1945 Author Organization [facility] Address [address] [place] [address] Care Team Providers Name Role Phone Unavailable Primary Care Provider Unavailable Encounter Details Date Type Department Care Team Description 09/11/2019 Treatment [facility] Ernie Gómez MD [address] [place] [address] [place], [place] [phone] (Wo rk) Social History Tobacco Use Types Packs/Day Years Used Date Smoking Tobacco: Unknown Comments: Smoking History Info:Patient n ot screened Sex Assigned at Date Recorded Not on file documented as of this encounter Miscellaneous Notes Dialysis Note - Ernie Pompa MD - 09/11/2019 12:23 PM CDT Date: Sep 11, 2019 Patient Name: Shaun Ocampo : 1945 Chart #: [id number] Sex: M This patient was personally seen [...] PM ) BP (sit): 149/59 AP(-) / MANAGER ARMY: 209/174 Pulse: 66 Chairside data as of [...] 08/23/2019 08/02/2019 Access Flow > 2000 1510 TERRAZZO MECHANIC: Ernie Pompa MD LOCATION: [place] [phone] SCHEDULE: -- 2nd Shift ACCESS: EDW: kg. [...] (05/01/19) Vascular Access Assessment: Type of access: [id number]/2019 Surgeon - Lary GARDNER Access working well [...]
--- OUTSIDE RECORDS SUMMARY | 2021-11-25 11:00 | XMS_ITS | Encounter Summary ---
:1945 Author Organization [facility] Address [address] [place] [address] Care Team Providers Name Role Phone Unavailable Primary Care Provider Unavailable Encounter Details Date Type Department Care Team Description 06/19/2019 Orders Only [facility] O f Ernie Guzmán MD [address] [place] [address] [place], [place] [phone] (Wo rk) Social History Tobacco Use [...] 06/21/2019 Unless otherwise specified, test(s) performed at: [facility], [address] [place] [address] AIR LIAISON AND SPECIAL STAFF: Alec Payan M.D. For any questions, please [...] 06/21/2019 Unless otherwise specified, test(s) performed at: [facility], [address] [place] [address] AIR LIAISON AND SPECIAL STAFF: Alec Payan M.D. For any questions, please call customer service at FREQUENCY:MONTHLY Resulting Agency Comment Specimen source: Serum Ernie Pompa MD LAB BLOOD ORDERABLES Performing Organization Address [facility] Phon e [...] ORDERABLES Performing Organization Address City/[facility] Code Phon [...] 06/21/2019 Unless otherwise specified, test(s) performed at: [facility], [address] [place] [address] AIR LIAISON AND SPECIAL STAFF: Alec Payan M.D. For any questions, please call customer service at FREQUENCY:MONTHLY Resulting Agency Comment Specimen source: Blood Ernie Pompa MD LAB BLOOD ORDERABLES Performing Organization Address City/[facility] Phon e Number APS SPECTRA [facility] POST CHEMISTRY (06/19/2019) P athologist Signature BUN Post 13 6 - 19 APS SPECTRA Dialysis mg/dL [facility] Specimen (Source) Anatomical Collection Method Collection Time Re ceived Time Location / / Volume Laterality 06/19/2019 06/20/2019 5:07 PM CDT Narrative APS SPECTRA [facility] - 06/20/2019 Unless otherwise specified, test(s) performed at: [facility], [address] [place] [address] AIR LIAISON AND SPECIAL STAFF: Alec Payan M.D. For any questions, please call customer service at FREQUENCY:MONTHLY Resulting Agency Comment Specimen source: Plasma Ernie Pompa MD LAB BLOOD ORDERABLES Performing Organization Address City/[facility] Phon e Number APS SPECTRA [facility] documented in this encounter Visit Diagnoses Not on filedocumented in this encounter
--- OUTSIDE RECORDS SUMMARY | 2021-11-25 11:00 | XMS_ITS | Encounter Summary ---
:1945 Author Organization [facility] Address [address] [place] [address] Care Team Providers Name Role Phone Unavailable Primary Care Provider Unavailable Encounter Details Date Type Department Care Team Description 06/05/2019 Orders Only [facility] O f Ernie Guzmán MD [address] [place] [address] [place], [place] [phone] (Wo rk) Social History Tobacco Use [...] 06/06/2019 Unless otherwise specified, test(s) performed at: [facility], [address] [place] [address] FISHER NET: Tawanna green M.D. For any questions, please call customer service at FREQUENCY:OTHER Resulting Agency Comment Specimen source: Blood Ernie Pompa MD LAB BLOOD ORDERABLES Performing Organization Address City/State/ZIP Code Phon e Number APS SPECTRA [facility] documented in this encounter Visit Diagnoses Not on filedocumented in this encounter
--- OUTSIDE RECORDS SUMMARY | 2021-11-25 11:00 | XMS_ITS | Encounter Summary ---
:1945 Author Organization [facility] Address [address] [place] [address] Care Team Providers Name Role Phone Unavailable Primary Care Provider Unavailable Encounter Details Date Type Department Care Team Description 06/26/2019 Orders Only [facility] O f Ernie Guzmán MD [address] [place] [address] [place], [place] [phone] (Wo rk) Social History Tobacco Use [...] 06/27/2019 Unless otherwise specified, test(s) performed at: [facility], [address] [place] [address] WOOD CHOPPER: Alec Payan M.D. For any questions, please call customer service at FREQUENCY:OTHER Resulting Agency Comment Specimen source: Blood Ernie Pompa MD LAB BLOOD ORDERABLES Performing Organization Address City/State/ZIP Code Phon e Number APS SPECTRA [facility] documented in this encounter Visit Diagnoses Not on filedocumented in this encounter
--- OUTSIDE RECORDS SUMMARY | 2021-11-25 11:00 | XMS_ITS | Encounter Summary ---
:1945 Author Organization [facility] Address [address] [place] [address] Care Team Providers Name Role Phone Unavailable Primary Care Provider Unavailable Encounter Details Date Type Department Care Team Description 05/15/2019 Orders Only [facility] O f Ernie Guzmán MD [address] [place] [address] [place], [place] [phone] (Wo rk) Social History Tobacco Use Types Packs/Day Years Used Date Smoking Tobacco: Unknown Comments: Smoking History Info:Patient n ot screened Sex Assigned at Date Recorded Not on file documented as of this encounter Plan of Treatment Not on filedocumented as of this encounter Procedures Procedure Name Priority Date/Time Associated Comments Diagnosis POST CHEMISTRY Routine 05/15/2019 2:24 PM Results for this COVERSTITCH MACHINE OPERATOR procedure are i n the results section. HD KINETICS Routine 05/15/2019 10:08 AM Results for this COVERSTITCH MACHINE OPERATOR procedure are i n the results section. HEMATOLOGY Routine 05/15/2019 10:08 AM Results for this COVERSTITCH MACHINE OPERATOR procedure are i n the results section. CHEMISTRY Routine 05/15/2019 10:08 AM Results for this COVERSTITCH MACHINE OPERATOR procedure are i n the results section. SPECTRA [facility] Routine 05/15/2019 Results for t his RESULTS procedure are i n the results section. documented in this encounter Results POST CHEMISTRY (05/15/2019 2:24 PM COVERSTITCH MACHINE OPERATOR) P athologist Signature BUN Post APS SPECTRA Dialysis mg/dL [facility] Specimen Anatomical Collection Method Collection Time Receive d Time (Source) Location / / Volume Laterality 05/15/2019 2:24 PM 0 9:40 COVERSTITCH MACHINE OPERATOR AM COVERSTITCH MACHINE OPERATOR Narrative APS SPECTRA [facility] - 05/15/2019 2:[address] Unless otherwise specified, test(s) performed at: [facility], [address] [place] [address] UPHOLSTERER ASSEMBLY LINE: Tawanna green M.D. For any questions, please call customer service at FREQUENCY:OTHER Resulting Agency Comment Specimen source: Plasma Ernie Pompa MD LAB BLOOD ORDERABLES Performing Organization Address [facility] Phon e Number APS SPECTRA [facility] (ABNORMAL) HD KINETICS (05/15/2019 10:08 AM COVERSTITCH MACHINE OPERATOR) P athologist Signature % Urea 62 (L) 65 - 80 % APS SPECTRA Reduction [facility] Specimen Anatomical Collection Method Collection Time Receive d Time (Source) Location / / Volume Laterality 05/15/2019 10:08 05/16/2019 AM COVERSTITCH MACHINE OPERATOR 10:07 AM COVERSTITCH MACHINE OPERATOR Narrative APS SPECTRA [facility] - 05/15/2019 10:08 AM COVERSTITCH MACHINE OPERATOR Unless otherwise specified, test(s) performed at: [facility], [address] [place], [place] [id number] UPHOLSTERER ASSEMBLY LINE: Tawanna green M.D. For any questions, please call customer service at FREQUENCY:OTHER Resulting Agency Comment Specimen source: Serum Ernie Pompa MD LAB BLOOD ORDERABLES Performing Organization Address [facility] Phon e Number APS SPECTRA [facility] (ABNORMAL) Spectrae Chemistry (05/15/2019 10:08 AM COVERSTITCH MACHINE OPERATOR) P athologist Signature BUN 29 (H) 6 - 19 APS SPECTRA mg/dL [facility] Specimen Anatomical Collection Method Collection Time Receive d Time (Source) Location / / Volume Laterality 05/15/2019 10:08 05/16/2019 AM COVERSTITCH MACHINE OPERATOR 10:07 AM COVERSTITCH MACHINE OPERATOR Narrative APS SPECTRA [facility] - 05/15/2019 10:08 AM COVERSTITCH MACHINE OPERATOR Unless otherwise specified, test(s) performed at: [facility], [address] [place], [place] [id number] UPHOLSTERER ASSEMBLY LINE: Tawanna green M.D. For any questions, please call customer service at FREQUENCY:OTHER Resulting Agency Comment Specimen source: Serum Ernie Pompa MD LAB BLOOD ORDERABLES Performing Organization Address City/[facility] Phon e Number APS SPECTRA [facility] (ABNORMAL) HEMATOLOGY (05/15/2019 10:08 AM COVERSTITCH MACHINE OPERATOR) Analysis Performed At Patho logist Time Signature Hemoglobin 8.2 (L) 14.0 - APS SPECTRA 18.0 g/dL [facility] Hemoglobin x 3 24.6 (L) 42.0 - APS SPECTRA 54.0 % [facility] Specimen Anatomical Collection Method Collection Time Receive d Time (Source) Location / / Volume Laterality 05/15/2019 10:08 05/16/2019 AM COVERSTITCH MACHINE OPERATOR 10:48 AM COVERSTITCH MACHINE OPERATOR Narrative APS SPECTRA [facility] - 05/15/2019 10:08 AM COVERSTITCH MACHINE OPERATOR Unless otherwise specified, test(s) performed at: [facility], [address] [place] [address] UPHOLSTERER ASSEMBLY LINE: Tawanna green M.D. For any questions, please call customer service at FREQUENCY:OTHER Resulting Agency Comment Specimen source: Blood Ernie Pompa MD LAB BLOOD ORDERABLES Performing Organization Address City/[facility] Phon e Number APS SPECTRA [...]
--- OUTSIDE RECORDS SUMMARY | 2021-11-25 11:00 | XMS_ITS | Encounter Summary ---
:1945 Author Organization [facility] Address [address] [place] [address] Care Team Providers Name Role Phone Unavailable Primary Care Provider Unavailable Encounter Details Date Type Department Care Team Description 07/17/2019 Orders Only [facility] O f Ernie Guzmán MD [address] [place] [address] [place], [place] [phone] (Wo rk) Social History Tobacco Use [...] 07/18/2019 Unless otherwise specified, test(s) performed at: [facility], [address] [place] [address] INSTRUCTOR PHYSICAL: Alec Payan M.D. For any questions, please call customer service at FREQUENCY:OTHER Resulting Agency Comment Specimen source: Blood Ernie Pompa MD LAB BLOOD ORDERABLES Performing Organization Address City/State/ZIP Code Phon e Number APS SPECTRA [facility] documented in this encounter Visit Diagnoses Not on filedocumented in this encounter
--- OUTSIDE RECORDS SUMMARY | 2021-11-25 11:00 | XMS_ITS | Encounter Summary ---
:1945 Author Organization [facility] Address [address] [place] [address] Care Team Providers Name Role Phone Unavailable Primary Care Provider Unavailable Encounter Details Date Type Department Care Team Description 07/03/2019 Orders Only [facility] O f Ernie Guzmán MD [address] [place] [address] [place], [place] [phone] (Wo rk) Social History Tobacco Use [...] Provider LAB BLOOD ORDERABLES Performing Organization Address [facility] Phon e Number KAMERON IMMUNO CHEMISTRY (07/03/2019) P athologist Signature Hep B Surface Negative Negative APS SPECTRA Ag [facility] Specimen (Source) Anatomical Collection Method Collection Time Re ceived Time Location / / Volume Laterality 07/03/2019 07/04/2019 8:19 PM CDT Narrative APS SPECTRA [facility] - 07/05/2019 Unless otherwise specified, test(s) performed at: [facility], [address] [place] [address] SEISMIC SURVEY ASSISTANT: Alec Payan M.D. For any questions, please call customer service at FREQUENCY:OTHER Resulting Agency Comment Specimen source: Serum Ernie [place] MD LAB BLOOD ORDERABLES Performing Organization Address [facility] Phon e Number APS SPECTRA [facility] HD KINETICS (07/03/2019) P athologist Signature % Urea 71 65 - 80 % APS SPECTRA Reduction [facility] Specimen (Source) Anatomical Collection Method Collection Time Re ceived Time Location / / Volume Laterality 07/03/2019 07/04/2019 8:19 PM CDT Narrative APS SPECTRA [facility] - 07/05/2019 Unless otherwise specified, test(s) performed at: [facility], [address] [place] [address] SEISMIC SURVEY ASSISTANT: Alec Payan M.D. For any questions, please call customer service at FREQUENCY:OTHER Resulting Agency Comment Specimen source: Serum Ernie [place] MD LAB BLOOD ORDERABLES Performing Organization Address City/[facility] Phon e Number APS SPECTRA [facility] (ABNORMAL) Spectrae Chemistry (07/03/2019) P athologist Signature BUN 35 (H) 6 - 19 APS SPECTRA mg/dL [facility] Specimen (Source) Anatomical Collection Method Collection Time Re ceived Time Location / / Volume Laterality 07/03/2019 07/04/2019 8:19 PM CDT Narrative APS SPECTRA [facility] - 07/05/2019 Unless otherwise specified, test(s) performed at: [facility], [address] [place] [address] SEISMIC SURVEY ASSISTANT: Alec Payan M.D. For any questions, please call customer service at FREQUENCY:OTHER Resulting Agency Comment Specimen source: Serum Ernie [place] MD LAB BLOOD ORDERABLES Performing Organization Address City/[facility] Phon e Number APS SPECTRA [facility] POST CHEMISTRY (07/03/2019) P athologist Signature BUN Post 10 6 - 19 APS SPECTRA Dialysis mg/dL [facility] Specimen (Source) Anatomical Collection Method Collection Time Re ceived Time Location / / Volume Laterality 07/03/2019 07/04/2019 5:30 PM CDT Narrative APS SPECTRA [facility] - 07/04/2019 Unless otherwise specified, test(s) performed at: [facility], [address] [place] [address] SEISMIC SURVEY ASSISTANT: Alec Payan M.D. For any questions, please call customer service at FREQUENCY:OTHER Resulting Agency Comment Specimen source: Plasma Ernie [place] MD LAB BLOOD ORDERABLES Performing Organization Address [facility] Phon e [...] 07/04/2019 Unless otherwise specified, test(s) performed at: [facility], [address] [place] [address] SEISMIC SURVEY ASSISTANT: Alec Payan M.D. For any questions, please call customer service at FREQUENCY:OTHER Resulting Agency Comment Specimen source: Blood Ernie [place] MD LAB BLOOD ORDERABLES Performing Organization Address City/[facility] Phon e Number APS SPECTRA [facility] documented in this encounter Visit Diagnoses Not on filedocumented in this encounter
--- OUTSIDE RECORDS SUMMARY | 2021-11-25 11:00 | XMS_ITS | Encounter Summary ---
:1945 Author Organization [facility] Address [address] [place] [address] Care Team Providers Name Role Phone Unavailable Primary Care Provider Unavailable Encounter Details Date Type Department Care Team Description 06/26/2019 Treatment [facility] f Ernie Guzmán MD [address] [place] [address] [place], [place] [phone] [phone] (Wo rk) Social History Tobacco Use Types Packs/Day Years Used Date Smoking Tobacco: Unknown Comments: Smoking History Info:Patient n ot screened Sex Assigned at Date Recorded Not on file documented as of this encounter Miscellaneous Notes Dialysis Note - Ernie [place]pa MD - 06/26/2019 12:47 PM CDT Date: Jun 26, 2019 Patient Name: Shaun Ocampo : 1945 Chart #: [id number] Sex: M This patient was personally seen [...] PM ) BP (sit): 146/80 AP(-) / ENVIRONMENTAL PROGRAMS MANAGER: 248/209 Pulse: 79 Chairside data as of [...] 4:0 Actual Treatment Time 04:03 04:02 04:01 LOCKSMITH HELPER: Ernie [place]pa MD LOCATION: [place] [phone] SCHEDULE: -W- 2nd Shift EDW: kg. DIALYZER: [...] this. Vascular Access Assessment Type of access: Ufzfwhx30/2019 Surgeon - Lary GARDNER Advanced needles to [...] at goal. Intact PTH is at goal. General Operations Manager will adjust binders and vitamin D [...] 06/26/2019 at 12:50:15 PM ] Transcribed: Ernie Pomap ( 06/26/2019 ) documented in this encounter Plan of Treatment Not on filedocumented as of this encounter Visit Diagnoses Not on filedocumented in this encounter
--- OUTSIDE RECORDS SUMMARY | 2021-11-25 11:00 | XMS_ITS | Encounter Summary ---
:1945 Author Organization [facility] Address [address] [place] [address] Care Team Providers Name Role Phone Unavailable Primary Care Provider Unavailable Encounter Details Date Type Department Care Team Description 06/12/2019 Orders Only [facility] O f Ernie Guzmán MD [address] [place] [address] [place], [place] [phone] (Wo rk) Social History Tobacco Use [...] 06/13/2019 Unless otherwise specified, test(s) performed at: [facility], [address] [place] [address] CRANE ENGINEER: Tawanna green M.D. For any questions, please call customer service at FREQUENCY:OTHER Resulting Agency Comment Specimen source: Blood Ernie [place] MD LAB BLOOD ORDERABLES Performing Organization Address City/State/ZIP Code Phon e Number APS SPECTRA [facility] documented in this encounter Visit Diagnoses Not on filedocumented in this encounter
--- OUTSIDE RECORDS SUMMARY | 2021-11-25 11:00 | XMS_ITS | Encounter Summary ---
:1945 Author Organization [facility] Address [address] [place] [address] Care Team Providers Name Role Phone Unavailable Primary Care Provider Unavailable Encounter Details Date Type Department Care Team Description 07/10/2019 Orders Only [facility] O f Ernie Guzmán MD [phone] [place] [address] [place], [place] [phone] (Wo rk) Social History Tobacco Use [...] 07/11/2019 Unless otherwise specified, test(s) performed at: [facility], [address] [place] [address] STOCK LETTERER: Alec Payan M.D. For any questions, please call customer service at FREQUENCY:OTHER Resulting Agency Comment Specimen source: Blood Ernie [place] MD LAB BLOOD ORDERABLES Performing Organization Address City/State/ZIP Code Phon e Number APS SPECTRA [facility] documented in this encounter Visit Diagnoses Not on filedocumented in this encounter
--- OUTSIDE RECORDS SUMMARY | 2021-11-25 11:00 | XMS_ITS | Encounter Summary ---
:1945 Author Organization [facility] Address [address] [place] [address] Care Team Providers Name Role Phone Unavailable Primary Care Provider Unavailable Encounter Details Date Type Department Care Team Description 07/10/2019 Treatment [facility] O Ernie Gómez MD [address] [place] [address] [place], [place] [phone] [phone] (Wo rk) Social History Tobacco Use Types Packs/Day Years Used Date Smoking Tobacco: Unknown Comments: Smoking History Info:Patient n ot screened Sex Assigned at Date Recorded Not on file documented as of this encounter Miscellaneous Notes Dialysis Note - Ernie [place]pa MD - 07/10/2019 11:42 AM CDT Date: Jul 10, 2019 Patient Name: Shaun Ocampo : 1945 Chart #: [id number] Sex: M This patient was personally seen [...] AM ) BP (sit): 136/58 AP(-) / BRUSHER MACHINE: n/a Pulse: 76 Chairside data as of [...] 4:0 Actual Treatment Time 04:04 04:02 04:04 MACHINE BOBBIN WINDER: Ernie [place]pa MD LOCATION: [place] [phone] SCHEDULE: M-W- 2nd Shift ACCESS: EDW: kg. [...] (05/01/19) Vascular Access Assessment: Type of access: [id number]/2019 Surgeon - Lary GARDNER Advanced needles to [...]
--- OUTSIDE RECORDS SUMMARY | 2021-11-25 11:00 | XMS_ITS | Encounter Summary ---
:1945 Author Organization [facility] Address [address] [place] [address] Care Team Providers Name Role Phone Unavailable Primary Care Provider Unavailable Encounter Details Date Type Department Care Team Description 07/24/2019 Orders Only [facility] O f Ernie Guzmán MD [address] [place] [address] [place], [place] [phone] (Wo rk) Social History Tobacco Use [...] LAB BLOOD ORDERABLES Performing Organization Address [facility] Phon e Number KAMERON (ABNORMAL) Spectrae Chemistry (07/24/2019) P athologist Signature PTH 164 (H) 16 - 80 APS SPECTRA pg/mL [facility] Specimen (Source) Anatomical Collection Method Collection Time Re ceived Time Location / / Volume Laterality 07/24/2019 07/25/2019 6:44 PM CDT Narrative APS SPECTRA [facility] - 07/26/2019 Unless otherwise specified, test(s) performed at: [facility], [address] [place] [address] ADMISSIONS CLINICIAN: Alec Payan M.D. For any questions, please call customer service at FREQUENCY:MONTHLY Resulting Agency Comment Specimen source: Plasma Ernie [place] MD LAB BLOOD ORDERABLES Performing Organization Address [facility] Phon e Number APS SPECTRA [facility] HD KINETICS (07/24/2019) P athologist Signature % Urea 69 65 - 80 % APS SPECTRA Reduction [facility] Specimen (Source) Anatomical Collection Method Collection Time Re ceived Time Location / / Volume Laterality 07/24/2019 07/25/2019 7:05 PM CDT Narrative APS SPECTRA [facility] - 07/26/2019 Unless otherwise specified, test(s) performed at: [facility], [address] [place] [address] ADMISSIONS CLINICIAN: Alec Payan M.D. For any questions, please call customer service at FREQUENCY:MONTHLY Resulting Agency Comment Specimen source: Plasma Ernie [place] MD LAB BLOOD ORDERABLES Performing Organization Address [facility] Phon e Number APS SPECTRA [facility] (ABNORMAL) [...] 07/26/2019 Unless otherwise specified, test(s) performed at: [facility], [address] [place] [address] ADMISSIONS CLINICIAN: lAec Payan M.D. For any questions, please [...] 07/25/2019 Unless otherwise specified, test(s) performed at: [facility], [address] [place], [place] [id number] ADMISSIONS CLINICIAN: Alec Payan M.D. For any questions, please call customer service at FREQUENCY:MONTHLY Resulting Agency Comment Specimen source: Plasma Ernie [place] MD LAB BLOOD ORDERABLES Performing Organization Address City/[facility] Phon e Number APS SPECTRA [facility] (ABNORMAL) [...] 07/25/2019 Unless otherwise specified, test(s) performed at: [facility], [address] [place], [place] [id number] ADMISSIONS CLINICIAN: Alec Payan M.D. For any questions, please call customer service at FREQUENCY:MONTHLY Resulting Agency Comment Specimen source: Blood Ernie [place] MD LAB BLOOD ORDERABLES Performing Organization Address City/State/ZIP Code Phon e Number APS SPECTRA [facility] documented in this encounter Visit Diagnoses Not on filedocumented in this encounter
--- OUTSIDE RECORDS SUMMARY | 2021-11-25 11:00 | XMS_ITS | Encounter Summary ---
:1945 Author Organization [facility] Address [address] [place] [address] Care Team Providers Name Role Phone Unavailable Primary Care Provider Unavailable Encounter Details Date Type Department Care Team Description 05/29/2019 Orders Only [facility] O f Ernie Guzmán MD [address] [place] [address] [place], [place] [phone] (Wo rk) Social History Tobacco Use [...] Provider LAB BLOOD ORDERABLES Performing Organization Address City/[facility]/ZIP [facility] Phon e Number KAMERON (ABNORMAL) HD KINETICS (05/29/2019) P athologist Signature % Urea 64 (L) 65 - 80 % APS SPECTRA Reduction [facility] Specimen (Source) Anatomical Collection Method Collection Time Re ceived Time Location / / Volume Laterality 05/29/2019 05/30/2019 6:23 PM CDT Narrative APS SPECTRA [facility] - 05/30/2019 Unless otherwise specified, test(s) performed at: [facility], [address] [place] [address] MESSAGE AND DELIVERY SERVICE PRICER: Tawanna green M.D. For any questions, please call customer service at FREQUENCY:OTHER Resulting Agency Comment Specimen source: Serum Ernie [place] MD LAB BLOOD ORDERABLES Performing Organization Address City/[facility] Phon e Number APS SPECTRA [...] 05/30/2019 Unless otherwise specified, test(s) performed at: [facility], [address] [place] [address] MESSAGE AND DELIVERY SERVICE PRICER: Tawanna green M.D. For any questions, please call customer service at FREQUENCY:OTHER Resulting Agency Comment Specimen source: Serum Ernie [place] MD LAB BLOOD ORDERABLES Performing Organization Address City/[facility]/ZIP [facility] Phon e Number APS SPECTRA [facility] POST CHEMISTRY (05/29/2019) P athologist Signature BUN Post 10 6 - 19 APS SPECTRA Dialysis mg/dL [facility] Specimen (Source) Anatomical Collection Method Collection Time Re ceived Time Location / / Volume Laterality 05/29/2019 05/30/2019 9:58 AM CDT Narrative APS SPECTRA [facility] - 05/30/2019 Unless otherwise specified, test(s) performed at: [facility], [address] [place], [place] [id number] MESSAGE AND DELIVERY SERVICE PRICER: Tawanna green M.D. For any questions, please call customer service at FREQUENCY:OTHER Resulting Agency Comment Specimen source: Plasma Ernei [place] MD LAB BLOOD ORDERABLES Performing Organization Address City/[facility] Phon e Number APS SPECTRA [...] 05/30/2019 Unless otherwise specified, test(s) performed at: [facility], [address] [place], [place] [id number] MESSAGE AND DELIVERY SERVICE PRICER: Tawanna green M.D. For any questions, please call customer service at FREQUENCY:OTHER Resulting Agency Comment Specimen source: Blood Ernie [place] MD LAB BLOOD ORDERABLES Performing Organization Address City/[facility] Phon e Number APS SPECTRA [facility] documented in this encounter Visit Diagnoses Not on filedocumented in this encounter
--- OUTSIDE RECORDS SUMMARY | 2021-11-25 11:00 | XMS_ITS | Encounter Summary ---
:1945 Author Organization [facility] Address [address] [place] [address] Care Team Providers Name Role Phone Unavailable Primary Care Provider Unavailable Encounter Details Date Type Department Care Team Description 05/15/2019 Treatment [facility] O Ernie Gómez MD [address] [place] [address] [place], [place] [phone] [phone] (Wo rk) Social History Tobacco Use Types Packs/Day Years Used Date Smoking Tobacco: Unknown Comments: Smoking History Info:Patient n ot screened Sex Assigned at Date Recorded Not on file documented as of this encounter Miscellaneous Notes Dialysis Note - Ernie [place] MD - 05/15/2019 12:58 PM CST Date: May 15, 2019 Patient Name: Shaun Ocampo : 1945 Chart #: [id number] Sex: M This patient was personally seen [...] AM ) BP (sit): 148/53 AP(-) / AUTOMATIC BUFFING WHEEL FORMER: 216/194 Pulse: 62 Chairside data as of [...] 4:0 4:0 Actual Treatment Time 04:01 04:03 [address] INSPECTOR: Ernie [place] MD LOCATION: [phone] SCHEDULE: -- 2nd Shift EDW: kg. DIALYZER: [...] tablet Take 1 tablet once a day [place] Saline (sodium chloride) 0.65% drops calcitriol 0.25 [...] away) Vascular Access Assessment Type of access: Flzpvzs79/2019 Lary GARDNER Anemia Assessment HEMOGLOBIN (G/DL) IN [...] at goal. Intact PTH is at goal. Drain Tile Press Operator will adjust binders and vitamin [...] Name: Shaun Ocampo : 1945 Chart #: [id number] Sex: M Patient Type: ESRD Modality: Hemodialysis Human Resources Office Assistant: Ernie [place] MD Location: [phone] Schedule: -W- 2nd Shift Initial Access Date [...]
--- OUTSIDE RECORDS SUMMARY | 2021-11-25 11:00 | XMS_ITS | Encounter Summary ---
:1945 Author Organization [facility] Address [address] [place] [address] Care Team Providers Name Role Phone Unavailable Primary Care Provider Unavailable Encounter Details Date Type Department Care Team Description 06/05/2019 Treatment [facility] f Ernie Guzmán MD [address] [place] [address] [place], [place] [phone] [phone] (Wo rk) Social History Tobacco Use Types Packs/Day Years Used Date Smoking Tobacco: Unknown Comments: Smoking History Info:Patient n ot screened Sex Assigned at Date Recorded Not on file documented as of this encounter Miscellaneous Notes Dialysis Note - Ernie [place] MD - 06/05/2019 5:14 PM CDT Date: Jun 05, 2019 Patient Name: Shaun Ocampo : 1945 Chart #: [id number] Sex: M This patient was personally seen for a basic visit as part of routine weekly dialysis care. A reviewof the dialysis treatment, blood pressure, estimated dry weight and recent lab values was made. These were discussed with the patient and staff as necessary. GRINDER DRESSER: Ernie [place] MD LOCATION: [phone] SCHEDULE: M-W-F 2nd Shift ACCESS: EDW: kg. [...] (05/01/19) Vascular Access Assessment: Type of access: [id number]/2019 Surgeon - Lary KUMARW Advanced needles to [...]
--- OUTSIDE RECORDS SUMMARY | 2021-11-25 11:00 | XMS_ITS | Encounter Summary ---
:1945 Author Organization [facility] Address [address] [place] [address] Care Team Providers Name Role Phone Unavailable Primary Care Provider Unavailable Encounter Details Date Type Department Care Team Description 05/22/2019 Treatment [facility] O Ernie Gómez MD [address] [place] [address] [place], [place] [phone] [phone] (Wo rk) Social History Tobacco Use Types Packs/Day Years Used Date Smoking Tobacco: Unknown Comments: Smoking History Info:Patient n ot screened Sex Assigned at Date Recorded Not on file documented as of this encounter Miscellaneous Notes Dialysis Note - Ernie [place] MD - 05/22/2019 12:28 PM CST Date: May 22, 2019 Patient Name: Shaun Ocampo : 1945 Chart #: [id number] Sex: M This patient was personally seen [...] AM ) BP (sit): n/a AP(-) / PRODUCTION WOOD CRAFTSMAN: 231/165 Pulse: n/a Chairside data as of [...] 4:0 Actual Treatment Time 04:04 04:01 04:04 DELIVERY ARCHITECT: Ernie [place] MD LOCATION: [place] [phone] SCHEDULE: -- 2nd Shift EDW: kg. DIALYZER: [...] tablet Take 1 tablet once a day [place] Saline (sodium chloride) 0.65% drops calcitriol 0.25 [...] 800 Vascular Access Assessment Type of access: Rdteiwb69/2019 Surgeon - Lary GARDNER Advancing needles to [...] at goal. Intact PTH is at goal. Oil And Gas Well Treatment Operator will adjust binders and vitamin D [...]
--- OUTSIDE RECORDS SUMMARY | 2021-11-25 11:00 | XMS_ITS | Encounter Summary ---
:1945 Author Organization [facility] Address [address] [place] [address] Care Team Providers Name Role Phone Unavailable Primary Care Provider Unavailable Encounter Details Date Type Department Care Team Description 05/22/2019 Orders Only [facility] O f Ernie Guzmán MD [address] [place] [address] [place], [place] [phone] (Wo rk) Social History Tobacco Use [...] Volume Laterality 05/22/2019 05/23/2019 10:[address] OILING TRUCK DRIVER Resulting Agency Comment Specimen source: Plasma Ernie [place] MD LAB BLOOD ORDERABLES Performing Organization Address City/State/ZIP Code Phon e Number APS SPECTRA [facility] POST CHEMISTRY (05/22/2019) athologist Signature BUN Post 13 6 - 19 APS SPECTRA Dialysis mg/dL [facility] Specimen (Source) Anatomical Collection Method Collection Time Re ceived Time Location / / Volume Laterality 05/22/2019 05/23/2019 10:[address] OILING TRUCK DRIVER Narrative APS SPECTRA [facility] - 05/24/2019 Unless otherwise specified, test(s) performed at: [facility], [address] [place] [address] INCIDENT RESPONSE CONSULTANT: Tawanna green M.D. For any questions, please call customer service at FREQUENCY:MONTHLY Resulting Agency Comment Specimen source: Plasma Ernie [place] MD LAB BLOOD ORDERABLES Performing Organization Address City/[facility]/ZIP Code Phon e Number APS SPECTRA [facility] (ABNORMAL) Spectrae Chemistry (05/22/2019) [facility] Method Time Signature BUN 30 (H) [...] Volume Laterality 05/22/2019 05/23/2019 11:[address] OILING TRUCK DRIVER Narrative APS SPECTRA [facility] - 05/23/2019 Unless otherwise specified, test(s) performed at: [facility], [address] [place] [address] INCIDENT RESPONSE CONSULTANT: Tawanna green M.D. For any questions, [...] Volume Laterality 05/22/2019 05/23/2019 12:[address] OILING TRUCK DRIVER Narrative APS SPECTRA [facility] - 05/23/2019 Unless otherwise specified, test(s) performed at: [facility], [address] [place] [address] INCIDENT RESPONSE CONSULTANT: Tawanna green M.D. For any questions, please call customer service at FREQUENCY:MONTHLY Resulting Agency Comment Specimen source: Blood Ernie [place] MD LAB BLOOD ORDERABLES Performing Organization Address City/State/ZIP Code Phon e Number APS SPECTRA [facility] documented in this encounter Visit Diagnoses Not on filedocumented in this encounter
--- OUTSIDE RECORDS SUMMARY | 2021-11-25 11:01 | XMS_ITS | Encounter Summary ---
:1945 Author Organization [facility] Address [address] [place] [address] Care Team Providers Name Role Phone Unavailable Primary Care Provider Unavailable Encounter Details Date Type Department Care Team Description 05/10/2019 Orders Only [facility] O f Ernie Guzmán MD [phone] [place] [id number] [place], [place] [phone] (Wo rk) Social History Tobacco Use [...] / Volume Laterality 05/10/2019 05/11/2019 9:28 AM DRUG ABUSE RESISTANCE EDUCATION OFFICER Narrative APS SPECTRA [facility] - 05/11/2019 Unless otherwise specified, test(s) performed at: [employer], [address] [place] [address] PACKAGING ENGINEER: Tawanna green M.D. For any questions, please call customer service at FREQUENCY:OTHER Resulting Agency Comment Specimen source: Blood Ernie Pompa MD LAB BLOOD ORDERABLES Performing Organization Address City/State/ZIP Code Phon e Number APS SPECTRA [facility] documented in this encounter Visit Diagnoses Not on filedocumented in this encounter
--- OUTSIDE RECORDS SUMMARY | 2021-11-25 11:01 | XMS_ITS | Continuity of Care Document ---
:1945 Author Organization [facility] Digestive [facility] Address [address] [address] [place] [address] Phone Care Team Providers Name Role Phone [...] rs Description For Visit Copied on Encounter [facility] No Sep- Lizz CAMPBELL Digestive [facility] Information Joce. Health [place], Endoscopy [address] [facility] [address], [address], [address], [id number], [place], [place] [id number], tel:[phone] tel:[phone] Init Hosp-da [facility] No Sep- Lizz CAMPBELL Referr ing E&m Mod Digestive [place] Information 3 Joce. Provider : [facility], Hospital 2 [address] [facility] [place], [address], [address] NE, [address] [place] [address], [place], [place], [place], [address], [id number], [place], [place] [id number], , [place], tel:+ [phone] tel: tel:[phone] Subsqt [facility] Ramon No Desean MARTIN Referring Hosp-da E&m Digestive [facility] Information 4-200 Lisa. Provider: [facility], Hosp 9 [address] [facility] Jason C[place] [address], [address] NE, R, [address] [place] [address], [address], [place], [place], [address], [id number], [place], [place] [id number], [place], [place], [place]: [place]. [phone] tel: tel: [phone] Init Inpt [facility]NGI Ramon No No Referring Cons New/est Digestive [facility] Information 2200 Informat ion Provider: [facility], Hosp [address] [place] [address] Jason CAMPBELL [address], R, [address] [place] [address], [place], [address], [id number], [place], [place], tel: [phone] tel:[phone] MNGI Ramon No Nilton CAMPBELL Referring Digestive [facility] 9-200 Zaida. 3001 P rovider: [facility], [address], Cash CAMPBELL [address], [address], P, [address] [place] [facility] [place], [place], [place], Street [place] [id number], [id number], [address], [place] tel: tel:+ s, [phone], [phone] . tel:[phone] Subsqt MNGI Ramon No Nesset INTERIM CONTROLLER Referring Hosp-da E&m Digestive [facility] Information 8-200 Ailyn. 30 01 Provider: [facility], Hosp [address] [place], [place] [address] [place] [address], [address], R, [address] [place] [facility] [address] s, [place], [place], [address], [id number], [id number], [place] [facility]. [place], [place], tel: tel:[phone]. [phone] tel:[phone] Init Inpt MNGI Ramon No Cash CAMPBELL Referring Cons New/est Digestive [facility] Information 7-200 Bryan. 3001 Provider: [facility], Hosp 9 [facility], Jason C[place] [address], [address], [address], [address] [facility], [place], [place], [address], [id number], [id number], [place] [facility]. [place], [place], tel: tel:[phone]. [phone] tel:[phone] Family History Family Member Type Diagnosis Age At Onset No Information Payers Payer name Insurance type Covered green party ID Authorization(s ) Blue [employer] Medicare Advantage [id number] Social History Type Description Quantity Date Captured [...]
--- OUTSIDE RECORDS SUMMARY | 2021-11-25 11:01 | XMS_ITS | Clinical Summary ---
:1945 Author Organization [facility] [place] [address] Care Team Providers Name Role Phone Liban Leos MD Primary Care Provider [phone] Allergies Active Allergy Reactions Severity Noted Date [...] 0 06/17/2019 Active equipment right leg (DME)Indications: obrhyp14og,circumf Lymphedema lzttyn27ue, left leg macjev10pzyzxdgpex gyzqa03th diagnosislymphedem aI89.0 MICROLET TEST DAILY 100 Each [...] disease (HC) fluticasone (50 mcg Inhale 1 [place] to 16 g 12 12/15/2020 Active per [...] atherosclerosis of unspecified type of vessel , gakona or graft 04/04/2007 Overview: Angiogram/PCI 04/04/07: LAD: [...] deficiency anemia, unspecified 08/13/200806/20 Overview: Admitted to [facility] 08/12/08 with Hgb 5.6, ferritin 5. Negative colonoscopy. 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 Reportedly negative outpatient capsule study. Chest pain, unspecified 07/17/2020 AORTIC VALVE DISORDER: Moderate to severe 07/17/2020 Overview: -Echo 03/29/07: Mild concentric LVH with normal wall motion. EF 55-60%. Marked KIERAN. Mod . CLAUS 1.3 cm sq. Mean gradient 24 mmHg. Mild IN, TI. Mild pulmonary hypertension. RVSP 39 mmHg +RAP. -S/P AVR 09/03/2008 Acute CHF 07/26/2010 Overview: -Mar [address] [facility] End stage renal disease 07/17/2020 Mitral stenosis 07/17/2020 Overview: Moderate to severe by echo 02/2019 Encounters Date Type Specialty Care Team Description 10/15/2021 Office Visit Liban Leos, Matt londono F/U (Browning MD Kee, 10/09/19 22 - 10/11/2021, mala jung ) 10/15/2021 Travel 10/08/2021 Orders Only Scanner <No scans attac hed> from Last 3 Months Immunizations Name Administration Dates Next Due AMB INFLUENZA IIV3 (AGE 65+ YRS) PF 12/28/2018 (Flu Clinic Only) COVID-19 vaccine (Moderna 05/11/2020, 04/17/2020 100mcg/0.5mL) PF, MDV COVID-19 vaccine (Circl-PlumWillow 10/15/2021 30mcg/0.3mL) 12YO+ THOMAS-SUCROSE PF, MDV Influenza, [...] Visit Liban Leos MD [address] [place] [address] (Wo rk) Health Maintenance Due [...] 06/2014, 10/07/2008 Medical Devices Implanted Type Area Fleet Manager/Dispatch Device Shelf Model / Identifier Expiration Serial / Date Lot Anw Hh [id number] Cv Implants N/A: Trinidad 07/13/2010 30 [id number] / Implanted: Qty: 1 on 09/03/2008 at [facility] Aortic [employer] [id number] / Explanted: at [facility] (Quantity not on file) Valve Jaclyn Procedures [...] Group MEDICARE PART B MEDICARE PART B [id number] 2011-Sameer ATTN: CLAIMS - HB USE ONLY HB ONLY t [address] [place] [address] BLUE CROSS MR BLUE CROSS [id number] 2018-Sameer [address] MEDIC[place] [id number] Advance Directives Latest Code Status on File [...] 9:20 PM 09/19/2008 4:57 PM Care Teams Ship Worker Relationship Specialty Start Date End Date Liban Leos MD PCP - General Family Practice 07/17/20 [facility] [place] [address]
--- OUTSIDE RECORDS SUMMARY | 2021-11-25 11:01 | XMS_ITS | Encounter Summary ---
:1945 Author Organization [facility] Address [address] [place] [address] Care Team Providers Name Role Phone Unavailable Primary Care Provider Unavailable Encounter Details Date Type Department Care Team Description 05/01/2019 Orders Only [facility] O f Ernie Guzmán MD [phone] [place] [address] [place], [place] [phone] (Wo rk) Social History Tobacco Use [...] above test result was obtained using Siemens KISSmetricsaur XP chemiluminescent method. Results obtaine d with different assay methods or kits cannot be used interchangeably. Specimen (Source) Anatomical Collection Method Collection Time Re ceived Time Location / / Volume Laterality 05/01/2019 05/02/2019 3:03 PM GEOSPATIAL INFORMATION TECHNOLOGIST Resulting Agency Comment Specimen source: Serum Ernie [...] / Volume Laterality 05/01/2019 05/02/2019 3:03 PM GEOSPATIAL INFORMATION TECHNOLOGIST Narrative APS SPECTRA [facility] - 05/03/2019 Unless otherwise specified, test(s) performed at: [employer], [address] [place], [place] [phone] MEDICAL LAB DIRECTOR: Tawanna green M.D. For any questions, please call customer service at FREQUENCY:MONTHLY Resulting Agency Comment Specimen source: Serum Ernie Pompa MD LAB BLOOD BANK TEST ORDERABL ES Performing Organization Address City/[facility] Phon e Number APS SPECTRA [facility] (ABNORMAL) Spectrae Chemistry (05/01/2019) P athologist Signature PTH 351 (H) 16 - 80 APS SPECTRA pg/mL [facility] Specimen (Source) Anatomical Collection Method Collection Time Re ceived Time Location / / Volume Laterality 05/01/2019 05/02/2019 8:20 PM GEOSPATIAL INFORMATION TECHNOLOGIST Narrative APS SPECTRA [facility] - 05/03/2019 Unless otherwise specified, test(s) performed at: [employer], [address] [place], [place] [phone] MEDICAL LAB DIRECTOR: Tawanna green M.D. For any questions, please call customer service at FREQUENCY:MONTHLY Resulting Agency Comment Specimen source: Plasma Ernie Pompa MD LAB BLOOD ORDERABLES Performing Organization Address City/State/[facility] Phon e Number APS SPECTRA [...] / Volume Laterality 05/01/2019 05/02/2019 8:20 PM GEOSPATIAL INFORMATION TECHNOLOGIST Narrative APS SPECTRA [facility] - 05/03/2019 Unless otherwise specified, test(s) performed at: [employer], [address] [place] [address] MEDICAL LAB DIRECTOR: Tawanna green M.D. For any questions, please call customer service at FREQUENCY:MONTHLY Resulting Agency Comment Specimen source: Blood Ernie Pompa MD LAB BLOOD ORDERABLES Performing Organization Address City/[facility] Phon e Number [facility]PS SPECTRA [facility] TRACE ELEMENTS (05/01/2019) P athologist Signature Aluminum <5 0 - 10 APS SPECTRA mcg/L [facility] Comment: This test was developed and its performa nce characteristics determined by [employer] [facility]. It has not been cleared or approved by the FDA. The laboratory is regulated under CLIA a s qualified to perform high complexity testing. This test is used fo r clinical purposes. It should not be regarded as investigational or fo r research. Specimen (Source) Anatomical Collection Method Collection Time Re ceived Time Location / / Volume Laterality 05/01/2019 05/02/2019 4:05 PM GEOSPATIAL INFORMATION TECHNOLOGIST Narrative APS SPECTRA [facility] - 05/02/2019 Unless otherwise specified, test(s) performed at: [employer] [facility], [address] [place] [address] MEDICAL LAB DIRECTOR: Tawanna green M.D. For any questions, please call customer service at FREQUENCY:MONTHLY Resulting Agency Comment Specimen source: Serum Ernie Pompa MD LAB BLOOD ORDERABLES Performing Organization Address City/[facility] Phon e Number APS SPECTRA [facility] (ABNORMAL) HD KINETICS (05/01/2019) P athologist Signature % Urea 96 (H) 65 - 80 % APS SPECTRA Reduction [facility] Specimen (Source) Anatomical Collection Method Collection Time Re ceived Time Location / / Volume Laterality 05/01/2019 05/02/2019 3:04 PM GEOSPATIAL INFORMATION TECHNOLOGIST Narrative APS SPECTRA [facility] - 05/02/2019 Unless otherwise specified, test(s) performed at: [employer], [address] [phone] MEDICAL LAB DIRECTOR: Tawanna green M.D. For any questions, please call customer service at FREQUENCY:MONTHLY Resulting Agency Comment Specimen source: Serum Ernie Pompa MD LAB BLOOD ORDERABLES Performing Organization Address City/State/ZIP Code Phon e Number APS SPECTRA [facility] (ABNORMAL) Spectrae Chemistry (05/01/2019) [facility] gist Method Time Signature BUN 68 [...] / Volume Laterality 05/01/2019 05/02/2019 3:03 PM GEOSPATIAL INFORMATION TECHNOLOGIST Narrative APS SPECTRA [facility] - 05/03/2019 Unless otherwise specified, test(s) performed at: [employer], [address] [place] [address] MEDICAL LAB DIRECTOR: Tawanna green M.D. For any questions, please [...] Volume Laterality 05/01/2019 05/02/2019 12:5 1 PM GEOSPATIAL INFORMATION TECHNOLOGIST Narrative APS SPECTRA [facility] - 05/02/2019 Unless otherwise specified, test(s) performed at: [employer], [address] [place] [address] MEDICAL LAB DIRECTOR: Tawanna green M.D. For any questions, please call customer service at FREQUENCY:MONTHLY Resulting Agency Comment Specimen source: Plasma Ernie Pompa MD LAB BLOOD ORDERABLES Performing Organization Address City/State/ZIP [facility] Phon e Number APS SPECTRA [facility] documented in this encounter Visit Diagnoses Not on filedocumented in this encounter
== END 2021-11-25 10:47 | disposition home or self-care (01) ==
LOC: WOUND 10:46
PROVIDERS: PCP Family Medicine; Visit Provider Nurse Practitioner Family
DX: E11.622 Type 2 diabetes mellitus with other skin ulcer (principal); L97.518 Non-pressure chronic ulcer of other part of right foot with other specified severity; L97.312 Non-pressure chronic ulcer of right ankle with fat layer exposed
CPT/HCPCS: 99212

== ENCOUNTER 2021-12-09 11:05 | Outpatient (CLI) | payer MEDICARE, SELFPAY | END 2021-12-09 11:06 | disposition home or self-care (01) | LOC: WOUND 11:05 | PROVIDERS: PCP Family Medicine; Visit Provider Nurse Practitioner Family | DX: E11.622 Type 2 diabetes mellitus with other skin ulcer (principal); L97.518 Non-pressure chronic ulcer of other part of right foot with other specified severity | CPT/HCPCS: 99212 ==

== ENCOUNTER 2021-12-22 09:24 | Emergency (ER) | payer MEDICARE, SELFPAY ==
[2021-12-22] VITALS (7 sets, daily range): BP systolic 89–99; BP diastolic 50–51; PULSE 77–99; RESP 18–22; TEMP 37.1; O2SAT 94–99; BMI 35.5
--- NOTE | 2021-12-22 10:51 | CRLHL7_ITS ---
For Patients: As a result of the Century Cures Act, medical imaging exams and procedure reports are released immediately into your electronic medical record. You may view this report before your referring provider. If you have questions, please contact your health care provider. INDICATION: Dialysis, shortness of breath, worsening edema. TECHNIQUE: Chest 1 views. COMPARISON: 04/25/2019. FINDINGS: Cardiovascular and mediastinum: Cardiomegaly. Atherosclerotic thoracic aorta. Aortic valve prosthesis. Lungs and pleural spaces: Increased prominence of the pulmonary vasculature bilaterally. No pleural effusion or pneumothorax. Unchanged calcific densities within the right upper lobe. There is pleural thickening along the right lung base. Bones and soft tissues: Median sternotomy wires. No acute findings.. IMPRESSION: Bilateral increased pulmonary vasculature prominence in the setting of cardiomegaly. Findings are consistent with heart failure/positive fluid balance. Right lung base pleural thickening, new compared to 04/25/2019. Dictated by Phillip Faust MD @ 12/22/2021 12:20:52 PM (Electronically Signed)
--- NOTE | 2021-12-22 10:55 | ED_ITS ---
HPI - General Adult General Time Seen by Provider: 10:56 Date Seen: 12/22/21 Chief complaint: Shortness of Breath/Dyspnea Stated complaint: Hard time breathing, fluid in lungs Time Seen by Provider: 12/22/21 10:36 Source: patient Mode of arrival: wheelchair History of Present Illness HPI narrative: Shaun is a 76 year old male past medical history includes end-stage renal disease on chronic dialysis, Monday, hypertension, heart failure presents emerged department with shortness of breath. Patient states he gets dialysis Monday, he went to dialysis this morning but did not complete the run due to worsening shortness of breath, denies any chest pain, he does have a chronic nonproductive cough, she has also had orthopnea worsening. No fevers or chills, no sick contacts, his symptoms have worsened over the last 2 days, denies any new weight gain, patient states he has not been making urine for the last 3 years, he used to be on diuretics, he does use nebulizers twice daily, he did do them yesterday with no improvement. Denies any nausea vomiting, no abdominal pain or chest pain, no recent falls, he has had increased weakness. He is not on home oxygen. Due to the worsening shortness of breath he presents emerged department. Related Data Home Medications Medication Instructions Recorded Confirmed allopurinol 100 mg tablet mg 12/22/21 ammonium lactate 12 % lotion topical 12/22/21 fluticasone propionate 115 inhalation 12/22/21 mcg-salmeterol 21 mcg/actuation HFA inhaler (Advair HFA) ipratropium 0.5 mg-albuterol 3 mg ml inhalation 12/22/21 (2.5 mg base)/3 mL nebulization soln metoprolol succinate 25 mg mg PO 12/22/21 tablet,extended release 24 hr pantoprazole 40 mg tablet,delayed mg PO 12/22/21 release sevelamer carbonate 800 mg tablet mg 12/22/21 Allergies Allergy/AdvReac Type Severity Reaction Status Date / Time lisinopril AdvReac Unknown Verified 10/08/21 14:10 Review of Systems Status of ROS: Reports: 10 or more systems reviewed and unremarkable except as noted in History and below PFSH PFSH Social History Smoking Status: Never smoker How often do you have a drink containing alcohol: never How often do you have six or more drinks on one occasion: Never AUDIT-C Alcohol total score: 0 Non-prescribed substance use: denies use Exam Narrative: Exam Narrative: General: Mild respiratory distress, sitting comfortably HEENT: Oropharynx clear and moist, pupils equal round reactive to light, extraocular muscles intact Neck: Full range of motion, no JVD, supple Heart: Normal sinus rhythm S1-S2 Lungs: Bilateral mid crackles, diminished breath sounds right base Abdomen: Obese, no fluid wave , soft bowel sounds present Muscle skeletal: Chronic +3 pitting edema lower extremities bilaterally, venous stasis changes. Neuro: Alert awake and oriented x3 Const: Vital Signs, click to edit/add: Vital Signs - 24 hr 12/22/21 09:43 Temperature 98.7 F Pulse Rate [Pulse Oximeter] 81 Respiratory Rate 22 Blood Pressure [Ri ght Upper Arm] 89/50 L Pulse Oximetry 95 Oxygen Delivery Me thod Room Air Course Course Hospital Course: 10:30 AM: AIDET performed. Vitals are stable, patient given supplemental oxygen, workup will include EKG, IV placed, will obtain a NT proBNP, CBC, COVID swab, CMP, and a XR chest portable one view, he will receive 1 DuoNeb, suspect worsening heart failure, patient would require dialysis, likely need transfer. Reevaluation(s) Reevaluation #1: Patient and daughter were updated on his imaging, lab and EKG results. EKG showed an atrial fibrillation with a nonspecific intraventricular conduction delay seen on previous, bpm 92, patient has a history of paroxysmal atrial fibrillation, after his GI bleed they took him off anticoagulation, imaging was consistent with worsening heart failure[place] [address], consistent with his ongoing heart failure, CBC showed no leukocytosis, hemoglobin stable at 10.8, COVID test was negative, metabolic panel was reassuring showing no hyperkalemia, creatinine mildly elevated at 3.9, sodium at 1:33, patient was able to maintain O2 sats greater than 90% after the above care given, will give additional 10 mg IV Decadron for his history of COPD, per dialysis staff patient was not off much from his dry weight and probably could wait till Monday, other options would be for him to be transferred to a place that allows dialysis, further discussion with daughter and patient wishes to be discharged, he will increase his nebulizers to 4 times daily, follow up as scheduled for dialysis on Monday, reasons return were given. Time: 13:38 Vital Signs Vital signs: Initial Vital Signs Temperature 98.7 F 12/22/21 09:43 Temperature Source Temporal Artery Scan 12/22/21 09:43 Pulse Rate 81 12/22/21 09:43 Respiratory Rate 22 12/22/21 09:43 Blood Pressure 89/50 L 12/22/21 09:43 Blood Pressure Mean 63 12/22/21 09:43 Blood Pressure Position Supine 12/22/21 09:43 Pulse Oximetry 95 12/22/21 09:43 Oxygen Delivery Method 12/22/21 09:43 Vital Signs Temperature 98.7 F 12/22/21 09:43 Pulse Rate 81 12/22/21 09:43 Respiratory Rate 22 12/22/21 09:43 Blood Pressure 89/50 L 12/22/21 09:43 Pulse Oximetry 95 12/22/21 09:43 Oxygen Delivery Method 12/22/21 09:43 Temperature 98.7 F 12/22/21 09:43 Pulse Rate 81 12/22/21 09:43 Respiratory Rate 22 12/22/21 09:43 Blood Pressure 89/50 L 12/22/21 09:43 Pulse Oximetry 95 12/22/21 09:43 Oxygen Delivery Method 12/22/21 09:43 Medical Decision Making Lab Data Labs: Lab Results 12/22/21 12/22/21 12/22/21 Range/Units 10:55 11:05 11:05 WBC 5.87 (4.50-11.00) K/uL RBC 3.45 L (4.30-5.90) m/uL Hgb 10.8 L (13.5-17.5) gm/dL Hct 34.2 L (37.0-53.0) % MCV 99 (80-100) fL MCH 31 (26-34) pg MCHC 32 (32-36) gm/dL RDW Coeff of Sridevi 16.8 H (11.5-15.5) % Plt Count 135 L (140-440) K/uL Neut % (Auto) 75.4 H (42.0-72.0) % Lymph % (Auto) 6.0 L (20-44) % Clay % (Auto) 17.2 H (0.0-11.0) % Eos % (Auto) 0.7 (0.0-7.0) % Baso % (Auto) 0.5 (0.0-3.0) % Neut # (Auto) 4.40 (1.7-7.0) K/uL Lymph # (Auto) 0.40 L (0.90-2.90) K/uL Clay # (Auto) 1.00 H (0.00-0.90) K/UL Eos # (Auto) 0.04 (0.00-0.50) K/uL Baso # (Auto) 0.03 (0.00-0.30) K/uL Abs Immat Gran (auto) 0.01 (0.00-0.30) K/uL Sodium 133 L (135-149) mmol/L Potassium 5.0 (3.6-5.1) mmol/L Chloride 95 L (96-114) mmol/L Carbon Dioxide 30 (20-32) mmol/L BUN 28 (7-30) mg/dL Creatinine 3.9 H (0.5-1.5) mg/dL Estimated Creat Clear 16.37 Estimated GFR 15 ml/min Glucose 118 H (60-115) mg/dL Calcium 9.6 (8.4-10.6) mg/dL Total Bilirubin 1.1 (0.1-1.5) mg/dL AST 33 (12-35) U/L ALT 15 (4-50) U/L Alkaline Phosphatase 133 (40-150) U/L NT-Pro-B Natriuret Pep [id number] H (0-450) PG/mL Total Protein 7.8 (6.0-8.3) g/dL Albumin 4.0 (3.3-5.0) g/dL SARS-CoV-2 (PCR) Negative SARS-CoV-2 (Negative) Discharge Plan Discharge Clinical Impression: Shortness of breath, Cough, Dialysis patient Patient Disposition: Home, Self-Care Condition: Improved Instructions: Dialysis Diet (DC), Shortness of Breath (ED) Additional Instructions: To increase DuoNebs to 4 times daily for cough and shortness of breath, follow- up with dialysis as scheduled on Monday, return if any worsening symptoms. Activity Level: Activity as Tolerated Prescriptions: No Action ipratropium-albuterol 0.5 mg-3 mg(2.5 mg base)/3 mL solution for nebulization INHALATION Label Comments: USE 3 ML VIA NEBULIZER EVERY 6 HOURS NEEDED FOR SHORTNESS OF BREATH ammonium lactate 12 % lotion TOPICAL Label Comments: APPLY TO LEGS AND FEET ONCE DAILY NEEDED allopurinol 100 mg tablet pantoprazole 40 mg tablet,delayed release (DR/EC) PO metoprolol succinate 25 mg tablet extended release 24 hr PO Advair HFA 115-21 mcg/actuation HFA aerosol inhaler INHALATION sevelamer carbonate 800 mg tablet Label Comments: TAKE 1 TABLET BY MOUTH THREE TIMES A DAY WITH MEALS Follow Up/Referrals: Liban Leos MD [Primary Care Provider] - Stand Alone Forms: [employer] Info Instructions
[2021-12-22 11:25] LABS: Basophils Absolute Auto 0.03 K/uL (0.00-0.30); Basophils Percent Auto 0.5 % (0.0-3.0); Eosinophils Absolute Auto 0.04 K/uL (0.00-0.50); Eosinophils Percent Auto 0.7 % (0.0-7.0); Hematocrit 34.2 % (37.0-53.0); Hemoglobin* 10.8 gm/dL (13.5-17.5); Immature Granulocytes Abs Auto 0.01 K/uL (0.00-0.30); Mean Corpuscular HGB Conc 32 gm/dL (32-36); Mean Corpuscular Hemoglobin 31 pg (26-34); Mean Corpuscular Volume 99 fL (80-100); Monocytes Percent Auto 17.2 % (0.0-11.0); Neutrophils Percent Auto 75.4 % (42.0-72.0); Platelet Count* 135 K/uL (140-440); RDW Coefficient of Variation % 16.8 % (11.5-15.5); Red Blood Count 3.45 m/uL (4.30-5.90); White Blood Count* 5.87 K/uL (4.50-11.00)
--- OUTSIDE RECORDS SUMMARY | 2021-12-22 11:25 | XMS_ITS ---
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 Active April 29, 2019 unspecified Secondary hyperparathyroidism, not E21.1 Active April 29, 2019 elsewhere classified Anemia in chronic kidney disease D63.1 Active April 29, 2019 Hypoglycemia, unspecified E16.2 Active 2019 Paroxysmal atrial fibrillation I48.0 Active April 29, 2019 End stage renal disease N18.6 Active ry 2019 ALLERGIES AND ADVERSE REACTIONS Substance Reaction Severity Status lisinopril cough Active SOCIAL HISTORY Tobacco Use Status Tobacco Type Former smoker Cigarettes Caregiver Characteristics Need Level ADL Type Relationship of senior caregiver Requires some assistance Shopping Laundry Housekeeping Michael garcia medical appointments Characteristics of Home environment Housing Status Patient Resides With Alone MEDICATIONS Prescribed Medications for Dialysis Treatments Medication Instructions Dosage Route Start Date End Date Statu s Doxercalciferol Every 5 mcg Intravenous September 17, [...] Iron Sucrose 1X Week 50 mg Intravenous November Active (Venofer) - push 2021 Mircera Every 2 weeks 200 mcg Intravenous October A ctive - push 2021 Iron Sucrose Every 100 mg Intravenous November Discontinued (Venofer) Treatment - push 2021 Iron Sucrose 1X Week 50 mg Intravenous October Di scontinued (Venofer) - push 2021 Home Medications Medication Instructions Dosage Route Start [...] six hours as needed lidocaine-prilocai TOPICAL August 13 Active ne 2.5-2.5% 2021 metoprolol Take by mouth 1/2 ORAL June 04, ctive succinate 25 mg once a day tablet 2019 Protonix 40 mg Take by mouth 1 tablet ORAL November 15, Active every morning 2021 one hour before meals Renvela 800 mg Take by mouth 1 tablet ORAL October 27, Active once a day with 2021 meals Triphrocaps 1 mg Take by mouth 1 capsule ORAL June 23, Active once a day 2019 VITAL SIGNS Post-Treatment Vital Signs Vital Sign Value Date / Time Blood Pressure-sitting 109/51 mmHg December 20, 2021 05:54 AM Blood Pressure-standing 110/47 mmHg December 20, 2021 05:54 AM Heart Rate 66 beats per minute December 20, 2021 05: 54 AM Respiratory Rate 16 breaths per minute December 20, 2021 0 5:54 AM Temperature 97.2 deg. F December 20, 2021 05: 54 AM Weight Vital Sign Value Date / Time Estimated Dry Weight 108 kg November 19, 2021 11:59 PM Pre-Dialysis 112.00 kg December 20, 2021 05: 54 AM Post-Dialysis 108.10 kg December 20, 2021 05: 54 AM Other Other Value Date / Time Height 173 cm August 25, 2021 12:00 AM [facility] LAB RESULTS Hematology Result Type Result Value Relevant Interpretation Date Reference Range TIBC 219 mcg/dL 185-515 mcg/dL - November 24, 2021 RDW 16.3 % No Reference High November 24, range provided 2021 Transferrin Sat. 21 % 20-55% - November, (Calc) 2021 Platelets 179 1000/mcL 658-938 7890/mcL - November WBC (No Diff) 5.16 1000/mcL 4.8-10.8 - November 24, thous/mcL 2021 RBC 3.05 mill/mcL Males: 4.70 - Low November 24, 6.10 mill/mcL 2021 Females: 4.20 - 5.40 mill/mcL HGB 10.3 g/dL Males: 14.0 - Low November 24, 18.0 g/dL 2021 Females: 12.0 - 16.0 g/dL Hemoglobin x 3 30.9 % Male: 14.0 - 18.0 Low Novembe 07, g/dL; Female: 2021 12.0-16.0 g/dL HCT 32.4 % Males: 42 - 52% Low November 24 , Females: 37 - 47% 2021 Iron 45 mcg/dL Females: 30-160 - November 24 , mcg/dL Males: 2021 45-160 mcg/dL MCH 33.8 pg 27 - 31 pg/cell High November UIBC (Calc) 174 mcg/dL 155-355 mcg/dL - November 24, 2021 MCHC 31.8 g/dL 30 - 36 g/dL - November 24, 2021 HGB 10.8 g/dL Males: 14.0 - Low November 14, 18.0 g/dL 2021 Females: 12.0 - 16.0 g/dL Hemoglobin x 3 32.4 % Male: 14.0 - 18.0 Low Septembe r 14, g/dL; Female: 2021 12.0-16.0 g/dL HGB 10.8 g/dL Males: 14.0 - Low December 08, 18.0 g/dL 2021 Females: 12.0 - 16.0 g/dL Hemoglobin x 3 32.4 % Male: 14.0 - 18.0 Low Septembe r 21, g/dL; Female: 2021 12.0-16.0 g/dL Hemoglobin x 3 33.0 % Male: 14.0 - 18.0 Low Septembe r 28, g/dL; Female: 2021 12.0-16.0 g/dL HGB 11.0 g/dL Males: 14.0 - Low December 15, 18.0 g/dL 2021 Females: 12.0 - 16.0 g/dL Metabolic/Renal Result Type Result Value Relevant Reference Interpretation Date Range URR, Calc 73 % 65 - 80% - November 24 BUN 48 mg/dL 6-19 mg/dl High November 24 Creatinine, Serum 5.30 mg/dL 0.6-1.3 mg/dL High November 24, 2021 BUN/Creat Ratio 9.1 10-20 Low November Sodium 137 mEq/L 136-145 mEq/L - November 24, 2021 Potassium 5.6 mEq/L 3.5-5.1 mEq/L High November 24, 2021 Chloride 100 mEq/L 96-108 mEq/L - November 24 Bicarbonate 28 mEq/L 22-29 mEq/L - November 24 BUN, Post 13 mg/dL 6-19 mg/dL - November 24 HD Adequacy Result Type Result Value Relevant Reference Interpretation Date Range eKt/V 1.36 No Reference range Normal November 24, 2021 (Tessie) provided spKt/V (Daugirdas 1.56 No Reference range Normal Nov II) provided Bone/Mineral Result Type Result Value Relevant Reference Interpretation Date Range PTH-Intact, Plasma 369 pg/mL 16 to 80 pg/mL High Septemb er 2021 Calcium, Total 9.4 mg/dL 8.4-10.2 mg/dL - November Phosphorus 4.2 mg/dL 2.6-4.5 mg/dL - November 24, 2021 Ca x P Product 39 < 55 - November 24, 2021 Corrected Ca x P 40 < 55 - November Product Liver/Nutrition Result Type Result Value Relevant Reference Interpretation Date Range Total Protein 6.8 g/dL 6.0-8.5 g/dL - November 24, 2021 Albumin (BCG) 3.7 g/dL 3.5-5.2 g/dL - November 24, 2021 Globulin (Calc) 3.1 g/dL 1.0 - 2.0 - November A/G Ratio 1.2 1.0-2.0 - November 24 022 Infectious Diseases Result Type Result Value Relevant Reference Interpretation Date Range Hep B Surface Ab 993 mIU/mL < 10 mIU/mL, Non- - Januar y 2021 (anti-HBs) Immune Hep B core Ab Negative Negative - March 24 Total (anti-HBc) Hep B Surface Ag Negative Negative - November (HBsAg) DIALYSIS PRESCRIPTION Conventional Hemodialysis Data Element [...] 2021 20.0 mcg Intramuscular Completed of 4 HEPLISAV-B, series 3 November 09, 2020 20.0 [...] Co mpleted Vaccine, Dose 1 of 2 HQIWNJT-T-CNNVH, October 30, 2019 40.0 mcg Intramuscular Com pleted series 4 of 4 GMVUQST-L-SWKTZ, July 03, 2019 40.0 mcg Intramuscular Comp leted series 3 of 4 UAXLBMW-D-AKBOK, June 03, 2019 40.0 mcg Intramuscular Comp leted series 2 of 4 TVDIQHF-Y-JBQVQ, May 03, 2019 40.0 mcg Intramuscular C ompleted series 1 of 4 TRANSPLANT WAITLIST STATUS No Information on Transplant Waitlist Status ADVANCE DIRECTIVES Directive Description Ordered By Effective Date Resuscitation status Full Code Ernie Pompa Mar 26 2 DIALYSIS TREATMENTS Conventional Hemodialysis Date Pre-Treatment Post-Treatment Duration BFR Dialysate Dialyzer Dialysis Meds Vitals Vitals (hr) (mL/min) Access Admin November Weight 110.60 Weight 107.50 04:00:00 400 2.0 K, 180nre Hemod ialysis-AV Fistula-Standard, Left Upper Arm, Other/Unknown Doxercalciferol (Hectorol); 5mcg,Intravenous - push 2021 kg kg 2.5 Ca, Optiflux Etelca lcetide (Parsabiv); 7.5mg,Intravenous - push 1.0 Mg, Heparin Sodi um (Porcine) 1,000 Units/mL Systemic; 1000units,Intravenous - push 100 Heparin Sodium (Porcine) 1,000 Units/mL Systemic; 2000units,Intravenous - push Dextrose (G2251) Blood Pressure-sitting 119/56 mmHg Blood Pressure-sitting 10 7/45 mmHg Blood Pressure-standing 107/50 mmHg Blood Pressure-standing 111/52 mmHg Heart Rate 88 beats per Heart Rate 58 beats per minute minute Respiratory Rate 20 breaths per Respiratory Rate 18 breaths per minute minute Temperature 96.0 deg. F Temperature 96.8 deg. F November Weight 111.30 Weight 107.10 04:00:00 450 2.0 K, 180nre Hemod ialysis-AV Fistula-Standard, Left Upper Arm, Other/Unknown Doxercalciferol (Hectorol); 5mcg,Intravenous - push 2021 kg kg 2.5 Ca, Optiflux Etelca lcetide (Parsabiv); 7.5mg,Intravenous - push 1.0 Mg, Heparin Sodi um (Porcine) 1,000 Units/mL Systemic; 2000units,Intravenous - push 100 Heparin Sodium (Porcine) 1,000 Units/mL Systemic; 1000units,Intravenous - push Dextrose (G2251) Blood Pressure-sitting 129/69 mmHg Blood Pressure-sitting 10 7/52 mmHg Blood Pressure-standing 115/56 mmHg Blood Pressure-standing 108/52 mmHg Heart Rate 84 beats per Heart Rate 64 beats per minute minute Respiratory Rate 18 breaths per Respiratory Rate 18 breaths per minute minute Temperature 97.0 deg. F Temperature 97.6 deg. F December Weight 112.00 Weight 108.10 04:02:00 420 2.0 K, 180nre Hemodia lysis-AV Fistula-Standard, Left Upper Arm, Other/Unknown Doxercalciferol (Hectorol); 5mcg,Intravenous - push 2021 kg kg 2.5 Ca, Optiflux Etelca lcetide (Parsabiv); 7.5mg,Intravenous - push 1.0 Mg, Heparin Sodi um (Porcine) 1,000 Units/mL Systemic; 1000units,Intravenous - push 100 Heparin Sodium (Porcine) 1,000 Units/mL Systemic; 2000units,Intravenous - push Dextrose Iron Sucros e (Venofer); 50mg,Intravenous - push (G2251) Blood Pressure-sitting 95/45 mmHg Blood Pressure-sitting 10 9/51 mmHg Blood Pressure-standing 108/54 mmHg Blood Pressure-standing 110/47 mmHg Heart Rate 74 beats per Heart Rate 66 beats per minute minute Respiratory Rate 22 breaths per Respiratory Rate 16 breaths per minute minute Temperature 98.1 deg. F Temperature 97.2 deg. F
--- OUTSIDE RECORDS SUMMARY | 2021-12-22 11:25 | XMS_ITS | Clinical Summary ---
:1945 Author Organization [place] Address [address] [place] [address] Care Team Providers Name Role Phone Liban [...] Refills Start Date End Date Status allopurinol (ZYLOPRIM) Take 100 mg by 0 12/15/2020 Active 100 MG tablet mouth daily atorvastatin (LIPITOR) Take 20 mg by 0 12/15/2020 Active 20 MG tablet mouth daily fluticasone (FLONASE) [place] 1 spray in 0 12/15/2020 Active 50 MCG/ACT nasal spray nostril daily fluticasone-salmeterol Inhale 2 puffs 0 07/04/2021 Active (ADVAIR HFA) 115-21 into the lungs 2 MCG/ACT inhaler times daily metoprolol succinate Take 0.5 tablets 0 12/15/2020 Active ER (TOPROL XL) 25 MG by mouth daily 24 hr tablet sevelamer carbonate Take 1 tablet by 0 09/10/2021 Active (RENVELA) 800 MG mouth 3 times tablet daily (with meals) multivitamin RENAL Take 1 capsule by 0 12/15/2020 Active (MULTIVITAMIN RENAL) 1 mouth MG capsule lidocaine-prilocaine APPLY SMALL AMOUNT 0 08/13/2021 Active (EMLA) 2.5-2.5 % TO ACCESS SITE external cream (AVF) 1 TO 2 HOURS BEFORE DIALYSIS. COVER WITH OCCLUSIVE DRESSING (SARAN WRAP) pantoprazole Take 1 tablet (40 30 tablet 1 10/12/2021 Active (PROTONIX) 40 MG EC mg) by mouth every tabletIndications: UGI morning (before bleed breakfast) Active Problems Problem Noted Date CKD (chronic [...] counseling Liban Gruber 10/10/2021 Anesthesia Event Surgery Schlimlissa, Herman Lazo MD 10/10/2021 Surgery Surgery Lizz, ESOPHAGOGASTROD UODENOSCOPY Joce Rene MD 10/08/2021 [facility] Med Surg [place], UGI bleed - Encounter Florentino Romo MD 10/11/2021 Faid Viveros, DO Simons, MD Gerald Zamarripa, Rhys Alvares MD 10/08/2021 [...] 1945 ANNUAL REVIEW OF HM ORDERS [address] COPD [address] PLAN [address] COLONOGRAPHY 1945 DIABETIC FOOT EXAM 1945 EYE EXAM 1946 FIT-DNA (Cologuard) 1945 FIT 1946 FLEX SIG 1945 LIPID 1945 MICROALBUMIN 1946 PARATHYROID 1946 PHOSPHORUS 1946 SPIROMETRY 1945 URINALYSIS 08/06/1947 COLONOSCOPY 1956 COLORECTAL CANCER SCREENING 1956 HEPATITIS C SCREENING 1964 ZOSTER IMMUNIZATION (1 of 1965 2) AORTIC ANEURYSM SCREENING 08/06/2011 (SYSTEM ASSIGNED) FALL RISK ASSESSMENT 08/06/2011 MEDICARE ANNUAL WELLNESS 08/06/2011 VISIT DTAP/TDAP/TD IMMUNIZATION 08/29/2018 08/29/2008, 03/20/1997 (2 - Td or Tdap) PHQ-2 (once per calendar 03/20/2021 year) COVID-19 Vaccine (4 - 03/26/2021 01/29/2021, 05/11/2020, Booster for Moderna series) 04/17/2020 [...] SINGLE TREATMENT Routine 10/11/2021 SETUP ([facility]) 4:33 PM CDT HEMODIALYSIS DIALYZER ([facility]) Routine 10/11/2021 2:28 PM CDT IP TERMINATION [...] B surface antigen (10/11/2021 7:46 AM CDT) [facility] gist Method Time Signature Hepatitis B Nonreactive Nonreactive [...] e Number [facility]/PROT/[place] [address] Core/Prot/Endo [address], Room 3-580 (ABNORMAL) Basic metabolic panel (10/11/2021 6:36 AM CDT)Only the most recent of 3 resultswithin the time period is included. [facility] gist Method Time Signature Sodium 134 133 - [...] and gender (Brigette et al., NEJ, DOI: 10.1056/ZXPZnp4576732) Specimen Anatomical Collection Method / Collection Time Recei annie Time (Source) Location / Volume Laterality Blood STRUCTURE OF RIGHT Venipuncture / 10/11/2021 6:36 07/2 07/2021 6:42 HAND / Unknown Unknown AM CDT AM CDT Dallin Farah DO LAB - BLOOD ORDERABLES Performing Organization Address City/State/ZIP Code [place] [address] Care Lab [address] Lab (1st floor, no room number) [...] Address City/State/ZIP [place] [address] Care Lab [address] Lab (1st floor, no room number) [...] AM CDT Rhys Duarte MD LAB - [facility] POCT Performing Organization Address City/State/ZIP Code Phon [place] [address] Care Lab [address] Lab (1st floor, no room number) Surgical Pathology Exam (10/10/2021 8:58 AM CDT) Component Value Ref Test Analysis Performed Pathologis t Range Method Time At Signature Case Report Surgical Pathology Report ? Case: [id number] ? Authorizing Provider: ??Carb allo, Joce ? Collected: ? 10/10/2021 08:58 AM ? 2 8:22 AM LABORA TORY ? MD Edgard ? CDT [facility]ing Location: [facility] ?? Received: ?10/10/2021 09:42 AM [...] on immunohistochemical stains. All controls stain appropriately. Stains 2 8:22 AM LABORATORY CDT Performing The technical component Labs of this testing was 2 8:22 AM LABORATORY completed at [facility] Laboratory Case Images 2 8:22 AM [...] Address City/State/ZIP Code [place] [address] [facility] [address] [facility], no room number[facility] UPPER GI ENDOSCOPY (10/10/2021 8:18 AM CDT) Component Value Ref Test Analysis Performed At [facility] gist Range Method Time Signature Upper GI [facility] RADIOLOGY Endoscopy RESULTS Patient Name: Shaun Ocampo ? Procedure Date: 09/18 8:18 AM ? Account Num flako: [id number] Date of : 1945 ?Admit Type: Inp [...] Model ?# [id number]-H190, Endora # 205, SN #[id number] was ?introduced through the mouth, and advanced [...] Diet as tolerated. ?- Page out for [facility] al team. ?- Will follow. ? JOCE ZAMUDIO MD 10/10/2021 8:24:36 AM I was physically present for the entire viewing portion of t he exam. JOCE ZAMUIDO MD Number of Addenda: 0 Note Initiated On: 10/10/2021 8:18 AM MRN: ?[id number] Procedure Date: ? 10/10/2021 8:18:14 AM Total [...] STRUCTURE OF RIGHT Venipuncture / 10/10/2021 2:15 09/18 2:32 HAND / Unknown Unknown AM CDT AM CDT Christie Roldan MD LAB - BLOOD ORDERABLES Performing Organization Address City/State/ZIP Code Ph[place] [phone] Care Lab [address] [facility] Lab (1st floor, no room number) Transfuse red blood cells (unit) No special requirements (10/09/2021 11:51 AM CDT)Only the most recent of2 resultswithin the time period is included. Dallin Simons MD BLOOD TRANSFUSION ORDERABLES Prepare red blood cells (unit) (10/09/2021 6:52 AM CDT)Only the most recent of2 resultswithin the time period is included. [facility] gist Method Time Signature CROSSMATCH Compatible RH BLOOD BANK UNIT ABO/RH O Neg RH BLOOD BANK Unit Number [id number] RH BLOOD BANK Unit Status Transfused RH BLOOD BANK Blood Red Blood Cells RH BLOOD Component Type BANK Product Code [id number] RH BLOOD BANK CODING SYSTEM [id number] RH BLOOD BANK UNIT TYPE ISBT 9500 RH BLOOD BANK ISSUE DATE AND [id number] RH BLOOD TIME BANK Specimen (Source) Anatomical Collection Method Collection Time Re ceived Time Location / / Volume Laterality 10/09/2021 6:52 AM CDT Dallin Simons MD BLOOD BANK PRODUCT ORDERABLE S Performing Organization Address City/[facility]/ZIP Code Phon e Number RH BLOOD BANK [address] [place] [address] EKG 12-lead, tracing only (10/09/2021 12:52 AM CDT) Component Value Ref Range Test Analysis Performed Patholog t Method Time At Signature Systolic Blood mmHg RADIOLOGY Pressure RESULTS Diastolic Blood mmHg RADIOLOGY Pressure RESULTS Ventricular Rate 70 BPM RADIOLOGY RESULTS Atrial Rate 39 BPM RADIOLOGY RESULTS WA Interval ms RADIOLOGY RESULTS QRS Duration 126 ms RADIOLOGY RESULTS QT 442 ms RADIOLOGY RESULTS QTc 477 ms RADIOLOGY RESULTS P [place] degrees RADIOLOGY RESULTS R AXIS 107 degrees RADIOLOGY RESULTS T [place] 33 degrees RADIOLOGY RESULTS Interpretation Atrial fibrillation RADIO LOGY ECG Right bundle branch block RESU LTS Abnormal ECG No previous ECGs available Confirmed by - [facility] Aravind, PHYSICIAN ([id number]), international editorial producer ANDRÉS HATCH ([id number]) on 10/11/2021 6:42:29 AM [...] the Xpert Xpress SARS-CoV-2 Assay on the [employer]. A dditional information about this [...] COVID-19. This test was validated by the [facility]. This laboratory is certified under the Clinical Laboratory Improvement Amendments of 1988 (CLIA-88) as qualified to perform high complexity laboratory testing. Florentino Ragsdale MD LAB - MICRO GENERAL ORDERABL ES Performing Organization Address City/State/ZIP Code [place] [address] Care Lab [address] Lab (1st floor, no room number) [...] Address City/State/ZIP Code [place] [address] Care Lab [address] Lab (1st floor, no room number) Extra Red Top Tube (10/08/2021 7:02 PM CDT) athologist [facility] Hold Specimen JIC 10/08/2021 RH LABORATORY 8:18 PM CDT Specimen Anatomical Collection Method / Collection Time Recei annie Time (Source) Location / Volume Laterality Blood STRUCTURE OF RIGHT Venipuncture / 10/08/2021 7:02 09/18 7:10 UPPER LIMB / Unknown PM CDT PM CDT Unknown Florentino Ragsdale MD LAB - BLOOD ORDERABLES Performing Organization Address City/[facility]/ZIP Code [place] [address] Care Lab [address] Lab (1st floor, no room number) [...] LAB - BLOOD ORDERABLES Performing Organization Address City/[facility]/ZIP Code Ph[place] [phone] Care Lab [address] Lab (1st floor, no room number) Adult Type and Screen (10/08/2021 7:02 PM CDT) [facility] Attendify Method Time Signature ABO/RH(D) O NEG 10/08/2021 RH BLOOD 6:39 PM CDT BANK Antibody Negative Negative 10/08/2021 RH BLOOD Screen 6:39 PM CDT BANK SPECIMEN [id number] 10/08/2021 RH BLOOD EXPIRATION 6:39 PM CDT BANK DATE Specimen Anatomical Collection Method / Collection Time Recei annie Time (Source) Location / Volume Laterality Blood STRUCTURE OF RIGHT Venipuncture / 10/08/2021 7:02 09/18 7:10 UPPER LIMB / Unknown PM CDT PM CDT Unknown Florentino Ragsdale MD LAB - BLOOD BANK TEST ORDER Performing Organization Address City/[facility]/ZIP Code Phon e Number RH BLOOD BANK [address] [place] [address] (ABNORMAL) Comprehensive metabolic panel (10/08/2021 7:02 PM CDT) [employer] Method Time Signature Sodium 136 133 - [...] Nitrogen 36 (H) 7 - 30 10/08/2021 RH LABORATORY mg/dL 7:39 PM CDT Creatinine 2.80 (H) 0.66 - 10/08/2021 RH LABORATORY 1.25 7:39 PM CDT mg/dL Calcium 8.8 8.5 - 10/08/2021 RH LABORATORY 10.1 7:39 PM CDT mg/dL Glucose 115 (H) 70 - 99 10/08/2021 RH LABORATORY mg/dL 7:39 PM CDT Alkaline 116 [...] and gender (Brigette et al., NEJ, DOI: 10.1056/[id number]) Specimen Anatomical Collection Method / Collection Time Recei annie Time (Source) Location / Volume Laterality Blood STRUCTURE OF RIGHT Venipuncture / 10/08/2021 7:02 /04/2021 7:10 UPPER LIMB / Unknown PM CDT PM CDT Unknown Florentino Ragsdale MD LAB - BLOOD ORDERABLES Performing Organization Address City/State/ZIP Code [place] [phone] Care Lab [address] Lab (1st floor, no room number) [...] Addre ss Type Group BCBS BCBS MEDICARE [id number] 2018-Sameer [phone] [address] [address] Medicare ADVANTAGE t [address] [place] [address] Advance Directives For more information, please contact: [phone] Latest Code Status on File Code Status Date Activated Date Inactivated Comments Full Code 10/11/2021 10:33 AM Code status determined by: Discussion with patient/ legal de cision maker Full Code 10/09/2021 1:43 AM 10/11/2021 10:33 AM All basic a nd advanced life-sustaining interventions ar e performed as appropriate Code status determined by: Discussion with patient/ legal de cision maker Care Teams [address] Magistrate Relationship Specialty Start Date End Date Liban Leos PCP - General Family Medicine 10/08/21 [address] [place] [address] Ernie Pompa MD MD Nephrology 10/08/21 [address] [place] [address]
--- OUTSIDE RECORDS SUMMARY | 2021-12-22 11:25 | XMS_ITS | Encounter Summary ---
:1945 Author Organization [place] Address [facility] [place] [address] Care Team Providers Name Role Phone Liban Leos Primary Care Provider Ernie Pompa MD Unavailable Reason for Referral Care Coordination (Routine: Next available opening) - Pending Review Specialty Diagnoses / Procedures Referred By Contact Refer red To Contact Diagnoses Other specified counseling Liban Leos [address] [place] [address] Referral ID Status Reason Start Date Expiration Date Visits V isits Requested Authorized [id number] Pending 10/12/2021 10/12/2022 1 1 Review Encounter Details Date Type Department Care Team Description 10/12/2021 Orders Only [facility] [address] Other specified Care Coordination [address] counseling [address] [place] [address] [place] [address] Social History Tobacco Use Types [...] Name Type Priority Associated Diagnoses Order S [facility] Referral Routine: Next Other specified Expected: Discharge - available opening counseling 10/12/2021 Referral to CC (Approximate) , Expires: 10/12/2022 documented as of this encounter Visit Diagnoses Diagnosis Other specified counseling documented in this encounter Care Teams Stonecutter Assistant Relationship Specialty Start Date End Date Liban Leos PCP - General Family Medicine 10/08/21 [address] [place] [address] Ernie Pompa MD MD Nephrology 10/08/21 [address] [place] [address] documented as of this encounter
--- OUTSIDE RECORDS SUMMARY | 2021-12-22 11:26 | XMS_ITS | Encounter Summary ---
:1945 Author Organization [facility] Address [address] [place] [address] Care Team Providers Name Role Phone Unavailable Primary Care Provider Unavailable Encounter Details Date Type Department Care Team Description 12/08/2021 Orders Only [facility] Ernie Guzmán MD [address] [place] [address] [place], [place] [phone] (Wo rk) Social History Tobacco Use Types Packs/Day Years Used Date Smoking Tobacco: Unknown Comments: Smoking History Info:Patient n ot screened Sex Assigned at Date Recorded Not on file documented as of this encounter Plan of Treatment Not on filedocumented as of this encounter Procedures Procedure Name Priority Date/Time Associated Diagnosis Comme nts HEMATOLOGY Routine 12/08/2021 Results for thi s procedure are in the resu lts section. documented in this encounter Results (ABNORMAL) HEMATOLOGY (12/08/2021) Analysis Performed At Patho logist Time Signature Hemoglobin 10.8 (L) 14.0 - [facility] 18.0 g/dL [facility] Hemoglobin x 3 32.4 (L) 42.0 - [facility] 54.0 % [facility] Specimen (Source) Anatomical Collection Method Collection Time Re ceived Time Location / / Volume Laterality 12/08/2021 12/09/2021 7:42 PM CDT Narrative [facility] - 12/09/2021 Unless otherwise specified, test(s) performed at: [facility], [address] [place] [address], [place] [address] CUTTING MACHINE OPERATOR: Alhaji Noguera M.D., Ph.D For any questions, please call customer service at FREQUENCY:OTHER Resulting Agency Comment Specimen source: Blood Ernie Pompa MD LAB BLOOD ORDERABLES Performing Organization Address City/State/ZIP Code Phon e Number [facility] documented in this encounter Visit Diagnoses Not on filedocumented in this encounter
--- OUTSIDE RECORDS SUMMARY | 2021-12-22 11:26 | XMS_ITS | Encounter Summary ---
:1945 Author Organization [facility] Address [address] [place] [address] Care Team Providers Name Role Phone Unavailable Primary Care Provider Unavailable Encounter Details Date Type Department Care Team Description 11/10/2021 Treatment [facility] Ernie Guzmán MD [address] [place] [address] [place], [place] [phone] (Wo rk) Social History Tobacco Use Types Packs/Day Years Used Date Smoking Tobacco: Unknown Comments: Smoking History Info:Patient n ot screened Sex Assigned at Date Recorded Not on file documented as of this encounter Miscellaneous Notes Dialysis Note - Ernie Pompa MD - 11/10/2021 11:27 AM CDT Date: Nov 10, 2021 Patient Name: Shaun Ocampo : 1945 Chart #: [id number] Sex: M This patient was personally seen [...] AM ) BP (sit): 111/39 AP(-) / HEAD NURSE: 195/161 Pulse: 62 Chairside data as of [...] 08/27/2021 05/28/2021 04/23/2021 Access Flow [id number] 0847 Treatment Medication Orders Medication Sig Start Date [...] mcg IVP Every 2 weeks 10/27/2021 10/26/2022 PROTEIN SPECIALIST: Ernie Pompa MD LOCATION: [phone] SCHEDULE: -- 2nd Shift ACCESS: EDW: kg. [...] after extra UF run last week at [facility]. BP adequate, challengingEDW today. His breathing is improved. Also went to wound care clinic at [facility] and they dressedwounds and he has follow-up and instructions for dressings and cares. He has no new symptoms and otherwise feels well. 10/13: Had GI bleeding on Monday, went to ER after dialysis, admitted at [facility], had 3u blood, EGDwithout obvious source, [...] and do periodic extra UF treatments at [facility] rather than risk more hypotension post-tx with use of midodrine and additional UF during treatments. He has fistulagram last week, went well and access working well since. 08/11: Continues to have problems with fluid gains. we have spent considerable time discussing this, he is trying to work on this but can't seem to avoid large gains. Will go to [facility] for UF tomorrow, needs extra treatments every 2 weeks it looks like to maintain EDW. He does get SOB when >5K over dry weight in particular. 07/21/21: Continues to struggle with fluid gains, extra UF run scheduled tomorrow at [facility]. He does feel more SOB when fluid overloaded. No new symptoms otherwise, he is enjoying the nicer weather which allows him to do more activity and not sit at home and drink fluids which he thinks will help with IDWG's. 07/14/21: Continues to have high gains, unfortunately [facility] without staff to open tomorrow for extra [...] improving. Fluid gains continue to be high, [facility] not open on this week, says he will do his best withlimiting salt/fluid. HE does feel SOB with exertion with extra fluid on, no orthopnea. 05/26/21: Has SOB when >5 Kg over dry weight, extra run last week at [facility] helped. Trying his best with fluid restriction. [...] well. He had extra run prior to [facility] and ran WThF that week an got [...] extra run and we discussed going to [facility] tomorrow for UF only run and he [...] again today, may need extra run at [facility] if can't get down over next week. 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 06/10: Doing well overall, no new complaints, [...] Went to Urgent care -> ER in [place] yesterday,CT with R hydro but no obstructive [...] (09/13/21) Vascular Access Assessment: Type of access: [id number]/[email or web address] Surgeon - Lary KUMARW 08/2021: [place] [facility] [place] of stenosis completed Impression and [...]
--- OUTSIDE RECORDS SUMMARY | 2021-12-22 11:26 | XMS_ITS | Encounter Summary ---
:1945 Author Organization [facility] Address [address] [place] [address] Care Team Providers Name Role Phone Unavailable Primary Care Provider Unavailable Encounter Details Date Type Department Care Team Description 12/01/2021 Treatment [facility] f Ernie Guzmán MD [address] [place] [address] [place], [place] [phone] (Wo rk) Social History Tobacco Use Types Packs/Day Years Used Date Smoking Tobacco: Unknown Comments: Smoking History Info:Patient n ot screened Sex Assigned at Date Recorded Not on file documented as of this encounter Miscellaneous Notes Dialysis Note - Ernie Pompa MD - 12/01/2021 10:28 AM CDT Date: Dec 01, 2021 Patient Name: Shaun Ocampo : 1945 Chart #: [id number] Sex: M This patient was personally seen for a complete visit as part of routine monthly dialysis care. A review of the dialysis treatment, blood pressure, estimated dry weight and recent lab values was made. These were discussed with the patient and staff as necessary. Treatment Data for 12/01/2021 started at:6:52 AM Dialyzer: 180NRe Optiflux Na: 138 mEq/L Bicarb: 34 mEq/L Dialysate: 2.0 K, 2.5 Ca, 1.0 Mg, 100 Dextrose (G2251) Dialysate/Machine Temp (prescribed): 37 C Dialysate/Machine Temp (actual): 36.5 C BFR (prescribed): 400 BFR (actual): 400 Prescribed time: 04:00 EDW: 108 kg Access Type: Active (In Use):AVFistula-Standard/Left Upper Arm Pre Dialysis Vitals (for 12/01/2021 6:37 AM ) Pre BP (sit): 96/49 Pre Wt: 111 kg Temp: 97.7 F Post Dialysis Vitals (for 11/29/2021 10:55 AM ) Post BP (sit): 108/35 Post Wt: 107.8 kg Current Dialysis Vitals (for 12/01/2021 10:02 AM ) BP (sit): n/a AP(-) / DELIVERY ANALYST: 225/160 Pulse: n/a Chairside data as of 12/01/2021 10:02 AM Last 3 Treatments 11/29/2021 11/26/2021 11/24/2021 EDW (kg) 108 108 108 Weight Pre (kg) 111.1 110.9 112.1 Weight Post (kg) 107.8 107.6 108 Dialytic Weight Loss (kg) -3.3 -3.3 -4.1 EDW Deviation (kg) -0.2 -0.4 0 BP Sit Pre 111/42 105/48 110/47 BP Sit Post 108/35 103/42 92/40 UF Rate (mL/kg/hr) 8 8 9 Prescribed BFR 400 400 400 Average Delivered BFR 400 400 400 Prescribed Treatment Time 04:00 04:00 04:00 Actual Treatment Time 04:00 04:00 04:00 Last 3 Values 08/27/2021 05/28/2021 04/23/2021 Access Flow [id number] 1249 IT TECHNICIAN: Ernie Pompa MD LOCATION: [place] [phone] SCHEDULE: -- 2nd Shift EDW: kg. DIALYZER: HD DURATION: NEEDLE SIZE: ANTICOAG: BATH: QB: ml/min QD: ml/min Subjective Tolerating dialysis well. 12/01: Shaun is doing well right now. Lesion on foot healed, edema less and this is helping his skin that is more healthy and less cracking, fluid gains have improved, wants to try lowering EDW by 0.5 kgtoday. Labs overall excellent. Only new complaint is 1-2 times per week the last few weeks he has had random light- headedness like his BP is low but occurs when he is just sitting and not exerting himself or standing and resolves on its own after about 30 seconds. 11/10: He's had more hypotension with dialysis, [...] after extra UF run last week at [facility]. BP adequate, challengingEDW today. His breathing is improved. Also went to [facility] care clinic at [facility] and they dressedwounds and he has follow-up and instructions for dressings and cares. He has no new symptoms and otherwise feels well. 10/13: Had GI bleeding on Monday, went to ER after dialysis, admitted at [facility], had 3u blood, EGDwithout obvious source, ASA [...] and do periodic extra UF treatments at [facility] rather than risk more hypotension post-tx with use of midodrine and additional UF during treatments. He has fistulagram last week, went well and access working well since. 08/11: Continues to have problems with fluid gains. we have spent considerable time discussing this, he is trying to work on this but can't seem to avoid large gains. Will go to [facility] for UF tomorrow, needs extra treatments every 2 weeks it looks like to maintain EDW. He does get SOB when >5K over dry weight in particular. 07/21/21: Continues to struggle with fluid gains, extra UF run scheduled tomorrow at [place]. He does feel more SOB when fluid overloaded. No new symptoms otherwise, he is enjoying the nicer weather which allows him to do more activity and not sit at home and drink fluids which he thinks will help with IDWG's. 07/14/21: Continues to have high gains, unfortunately [facility] without staff to open tomorrow for extra [...] had steroid injections in knees yesterday at PCP. To do PT as well. He pulled muscle in his lower arm on L side last week getting into car, hurt a lot but is improving. Fluid gains continue to be high, [facility] not open on this week, says he will do his best withlimiting salt/fluid. HE does feel SOB with exertion with extra fluid on, no orthopnea. 05/26/21: Has SOB when >5 Kg over dry weight, extra run last week at [facility] helped. Trying his best with fluid restriction. [...] extra run and we discussed going to [facility] tomorrow for UF only run and he [...] again today, may need extra run at [facility] if can't get down over next week. 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 06/10: Doing well overall, no new [...] Went to Urgent care -> ER in [place] yesterday,CT with R hydro but no obstructive [...] was done virtually with video during the ID- pandemic. Shaun is doing well. He has [...] No murmur heard. Edema - Trace edema. under wraps, better Access - AVF intact with needles in place, no aneurysms Lateral R ankle ulceration is healed Medication List Medication Sig Start Date [...] 1 tablet by mouth once a day with meals. with largest meal. Triphrocaps (b complex with c 20-folic acid) 1 mg capsule Take 1 capsule by mouth once a day Allergy List Allergen Reaction Reaction Severity Onset Date lisinopril Cough Medications reviewed and no changes were made. Treatment and Adequacy Assessment BUN mg/dL 48 (11/24/21) 38 (10/20/21) 41 (09/22/21) 55 (08/30/21) 52 (08/18/21) UREA NITROGEN (MG/DL) IN SER/PLAS - POST DIALYSIS mg/dL 13 (11/24/21) 11 (10/20/21) 12 (09/22/21) 16 (08/30/21) 17 (08/18/21) URR % 73 (11/24/21) 71 (10/20/21) 71 (09/22/21) 71 (08/30/21) 67 (08/18/21) spKt/V Gotch 1.64 (11/24/21) 1.55 (10/20/21) 1.53 (09/22/21) 1.39 (08/18/21) 1.42 (07/21/21) eKdrt/V 1.42 (11/24/21) 1.35 (10/20/21) 1.33 (09/22/21) 1.21 (08/18/21) 1.24 (07/21/21) spKt/V (Daugirdas II) 1.5600 (11/24/21) 1.4800 (10/20/21) 1.4700 (09/22/21) 1.4900 (08/30/21) 1.3400 (08/18/21) Dialysis is adequate. Achieves prescribed time - Yes Achieves prescribed frequency - Yes Continue current prescription. Vascular Access Assessment Type of access: [id number] Surgeon Annita GARDNER 08/2021: fistulagram at [facility] with angioplasty of stenosis completed Anemia Assessment HEMOGLOBIN (G/DL) IN BLOOD g/dL 10.3 (11/24/21) 10.2 (11/17/21) 9.6 (11/10/21) 10.0 (11/03/21) 9.3 (10/27/21) PLATELETS 1000/mcL 179 (11/24/21) 184 (10/20/21) 250 (09/22/21) 101 (08/18/21) 183 (07/21/21) IRON SATURATION % 32 (08/18/21) 36 (07/21/21) 31 (06/23/21) 38 (05/26/21) 35 (05/19/21) FERRITIN ng/mL 357 (09/22/21) 640 (06/23/21) 640 (05/21/21) 857 (03/24/21) 837 (02/24/21) Hemoglobin is at goal. Iron Saturation is at goal. Ferritin is below goal. Will adjust NATALEE and intravenous iron per protocol. Nutritional and Metabolic Assessment ALBUMIN (G/DL) g/dL 3.7 (11/24/21) 3.8 (10/20/21) 3.7 (09/22/21) 3.6 (08/18/21) 3.5 (07/21/21) Sodium mEq/L 137 (11/24/21) 135 (10/20/21) 133 (09/22/21) 135 (08/18/21) 138 (07/21/21) POTASSIUM (MMOL/L) IN SER/PLAS mEq/L 5.6 (11/24/21) 5.0 (10/20/21) 5.7 (09/29/21) 6.3 (09/22/21) 5.8 (08/18/21) BICARBONATE (CO2) mEq/L 28 (11/24/21) 26 (10/20/21) 26 (09/22/21) 23 (08/18/21) 25 (07/21/21) 25 OH VITAMIN D ng/mL 56.0 (09/22/21) 38.3 (03/24/21) Albumin is below goal. Encourage high-biological value protein intake. Potassium is at goal. Encourage low potassium diet. Bicarbonate is above goal. Increase bicarbonate in dialysate. Bone and Mineral Metabolism Assessment CALCIUM mg/dL 9.4 (11/24/21) 9.5 (10/20/21) 9.2 (09/22/21) 8.9 (09/13/21) 8.6 (09/01/21) CALCIUM (MG/DL) CORRECTED FOR ALBUMIN IN SER/PLAS mg/dL 9.6 (11/24/21) 9.7 (10/20/21) 9.4 (09/22/21) 9.0 (08/18/21) 9.0 (07/21/21) PHOSPHATE (MG/DL) IN SER/PLAS mg/dL 4.2 (11/24/21) 2.9 (10/20/21) 3.9 (09/22/21) 4.4 (08/18/21) 4.4 (07/21/21) CALCIUM PHOSPHORUS PRODUCT, COR 40 (11/24/21) 28 (10/20/21) 37 (09/22/21) 40 (08/18/21) 40 (07/21/21) IPTH pg/mL 369 (11/24/21) 203 (10/27/21) 722 (09/22/21) 851 (09/13/21) 810 (08/20/21) Corrected Calcium is at goal. Phosphorous is at goal. Intact PTH is at goal. Vamp Seamer will adjust binders and vitamin D per protocol and continue to provide dietary education. HE has severe nausea and vomiting with Sensipar, can not use anymore Continue [place] Cardiovascular Assessment Blood pressures reviewed and are acceptable. Intradialytic weight gains are appropriate. Estimated dry weight is too high, will decrease. Continue same cardiovascular medications. Fluid gains improved, edema improved Lower IDWG 0.5 kg today Transplant Status: Patient is not a candidate. Weight, co-morbidities, age Resuscitation Status Stable dialysis Lower EDW by 0.5 kg today, challenge if able Random episodes of light-headedness may be arrhythmia, he will discuss event monitor with PCP on Monday at his appt Ernie Pompa MD [ Signed And locked electronically On 12/01/2021 at 10:31:57 AM ] Transcribed: Ernie Pompa ( 12/01/2021 ) documented in this encounter Plan of Treatment Not on filedocumented as of this encounter Visit Diagnoses Not on filedocumented in this encounter
--- OUTSIDE RECORDS SUMMARY | 2021-12-22 11:26 | XMS_ITS | Encounter Summary ---
:1945 Author Organization [facility] Address [address] [place] [address] Care Team Providers Name Role Phone Liban Leos Primary Care Provider Ernie Pompa MD Unavailable Reason for Visit Auth/Cert Specialty Diagnoses / Procedures Referred By Contact Refer red To Contact Med Surg Diagnoses UGI bleed UGI bleed Rh 5 Medical Surgical [address] [place], [place] [address] Phone: Fax: Referral ID Status Reason Start Date Expiration Date Visits Requ ested Visits Authorized [id number] 1 1 Encounter Details Date Type Department Care Team Description 10/10/2021 Anesthesia Event [facility] Olvin Mosley mcneal PeriOp Services MD [place] [address] [place], [place] ANESTHESIA [address] [address] [facility] [phone] [place] [phone] Anesthesia Record Procedure Summary Procedure Name Responsible Anesthesia Start Anesthesia Stop Anesthesiologist Time Time ESOPHAGOGASTRODUODENOSCOPY Herman Mosley 10/10/21 0842 09/18 07/09 0918 biopsies (N/A Mouth) MD [place] Events Date Time Event Comment 10/10/2021 0830 WIND POWER PROJECT MANAGER Ready for Procedure 0842 An Start 0842 Present 0845 AN REASSESS I attest that I have identified and re-evaluated the patient immediately before the induction of anesthesia and I am satisfied that t he anesthetic plan is suitable for the patient's condition and procedure. The f irst vital signs recorded are pre- inducti on. Yamilka Bear APRN WIND POWER PROJECT MANAGER 0845 An Start Data 0857 Present 0912 [...] IV 10/08/21; Right; 10/08/21 0000 by 10/11/21 210 by Wrist Kayla Thompson, OVI Inpatient, Nurse Peripheral IV 10/09/21; 0851; 20 G; 10/09/21 0851 by 10/11/21 210 by BD; Anterior, Right; Essence Osuna, RN Inpatien t, Nurse Lower forearm; Tolerated well documented [...] vial CDT Intravenous, CONTINUOUS PRN, Starting on 10/10/21 at 0849, Anesthesia Intra-op sodium chloride 0.9% infusion New Bag 10/10/2021 8:42 AM CDT Intravenous, CONTINUOUS PRN, Anesthesia Intra-op, Starting on Mon10/10/21 at 0842, Until Mon10/10/21 at 0918 documented in this encounter Care Teams Grout Pump Operator Relationship Specialty Start Date End Date Liban Leos PCP - General Family Medicine 10/08/21 [address] [place] [address] Ernie Pompa MD MD Nephrology 10/08/21 [address] [place] [place] [address] documented as of this encounter
--- OUTSIDE RECORDS SUMMARY | 2021-12-22 11:26 | XMS_ITS | Encounter Summary ---
:1945 Author Organization [facility] Address [address] [place] [address] Care Team Providers Name Role Phone Unavailable Primary Care Provider Unavailable Encounter Details Date Type Department Care Team Description 03/31/2019 Records - [facility] GERIATRIC SERVICES [facility] [address] [place] [phone] [place] [phone] Social History Tobacco Use Types Packs/Day Years Used Date Never Assessed Sex Assigned at Date Recorded Not on file documented as of this encounter Plan of Treatment Not on filedocumented as of this encounter Procedures Procedure Name Priority Date/Time Associated Diagnosis Comme nts BASIC METABOLIC Routine 04/01/2019 7:55 AM Result s for this PANEL BACKING IN MACHINE TENDER procedure are i n the results section. CBC WITH PLATELETS Routine 04/01/2019 7:55 AM Res ults for this BACKING IN MACHINE TENDER procedure are i n the results section. documented in this encounter Results (ABNORMAL) CBC with platelets (04/01/2019 7:55 AM BACKING IN MACHINE TENDER) [facility] Method Time Signature WBC 7.6 4.0 - 11.0 04/01/2019 HEALTH thou/uL 12:59 PM [facility] RBC Count 2.48 (L) 4.40 - 04/01/2019 HEALTH 6.20 12:59 PM [facility] LABORATORY Hemoglobin 7.7 (L) 14.0 - 04/01/2019 HEALTH 18.0 g/dL 12:59 PM [facility] Hematocrit 25.1 (L) 40.0 - 04/01/2019 HEALTH 54.0 % 12:59 PM [facility] MCV 101 (H) 80 - 100 04/01/2019 HEALTH fL 12:59 PM [facility] MCH 31.0 27.0 - 04/01/2019 HEALTH 34.0 pg 12:59 PM [facility] MCHC 30.7 (L) 32.0 - 04/01/2019 HEALTH 36.0 g/dL 12:59 PM [facility] RDW 19.7 (H) 11.0 - 04/01/2019 HEALTH 14.5 % 12:59 PM [facility] Platelet Count 137 (L) 140 - 440 04/01/2019 HEALTH thou/uL 12:59 PM [facility] Mean Platelet 10.7 8.5 - 12.5 04/01/2019 HEALTH Volume fL 12:59 PM [facility] Specimen Anatomical Collection Method / Collection Time Recei annie Time (Source) Location / Volume Laterality Blood specimen STRUCTURE OF RIGHT Venipuncture / 04/01/2019 7:55 (specimen) UPPER LIMB / Unknown AM BACKING IN MACHINE TENDER 12:23 PM BACKING IN MACHINE TENDER Unknown Alison [facility]ins LAB - BLOOD ORDERABLES Performing Organization Address City/State/ZIP Code Phon e Number [place] [address] [address] [facility] (ABNORMAL) Basic metabolic panel (04/01/2019 7:55 AM BACKING IN MACHINE TENDER) [facility] Method Time Signature Sodium 137 136 - 145 04/01/2019 HEALTH mmol/L 1:17 PM [facility] Potassium 4.7 3.5 - 5.0 04/01/2019 HEALTH mmol/L 1:17 PM [facility] Chloride 105 98 - 107 04/01/2019 HEALTH mmol/L 1:17 PM [facility] Carbon Dioxide 22 22 - 31 04/01/2019 HEALTH (CO2) mmol/L 1:17 PM [facility] Anion Gap 10 5 - 18 04/01/2019 HEALTH mmol/L 1:17 PM [facility] Glucose 83 70 - 125 04/01/2019 HEALTH mg/dL 1:17 PM [facility] Calcium 10.1 8.5 - 10.5 04/01/2019 HEALTH mg/dL 1:17 PM [facility] Urea Nitrogen 93 (H) 8 - 28 04/01/2019 HEALTH mg/dL 1:17 PM [facility] Creatinine 3.02 (H) 0.70 - 04/01/2019 HEALTH 1.30 mg/dL 1:17 PM [facility] GFR Estimate If 25 (L) >60 04/01/2019 HEALTH Black mL/min/1.7 1:[address] GFR Estimate 21 (L) >60 04/01/2019 HEALTH mL/min/1.7 1:17 [address] [facility] Specimen Anatomical Collection Method / Collection Time Recei annie Time (Source) Location / Volume Laterality Blood specimen STRUCTURE OF RIGHT Venipuncture / 04/01/2019 7:55 (specimen) UPPER LIMB / Unknown AM BACKING IN MACHINE TENDER 12:23 PM BACKING IN MACHINE TENDER Unknown Narrative [facility] - 04/01/2019 1:17 PM BACKING IN MACHINE TENDER Fasting Glucose reference range is 70-99 mg/dL per [place] [employer] (ADA) maryan marrero. Alison Hollins LAB - BLOOD ORDERABLES Performing Organization Address City/State/ZIP Code Phon [place] [id number] [place] [address] LABORATORY [facility] [address] [place] [address], [facility] documented in this encounter Visit Diagnoses Not on filedocumented in this encounter
--- OUTSIDE RECORDS SUMMARY | 2021-12-22 11:26 | XMS_ITS | Encounter Summary ---
:1945 Author Organization [facility] Address [address] [place] [address] Care Team Providers Name Role Phone Unavailable Primary Care Provider Unavailable Encounter Details Date Type Department Care Team Description 10/27/2021 Orders Only [facility] f Ernie Guzmán MD [address] [place] [address] [place], [place] [phone] (Wo rk) Social History Tobacco Use [...] 10/28/2021 Unless otherwise specified, test(s) performed at: [facility], [address] [place] [address], [place] [address] MIX MAKER: Alhaji Noguera M.D., Ph.D For any questions, [...] 10/28/2021 Unless otherwise specified, test(s) performed at: [facility], [address] [place] [address] [facility] [place] [address] MIX MAKER: Alhaji Noguera M.D., Ph.D For any questions, please call customer service at FREQUENCY:OTHER Resulting Agency Comment Specimen source: Blood Ernie Pompa MD LAB BLOOD ORDERABLES Performing Organization Address City/[facility] Phon e Number [facility] documented in this encounter Visit Diagnoses Not on filedocumented in this encounter
--- OUTSIDE RECORDS SUMMARY | 2021-12-22 11:26 | XMS_ITS | Encounter Summary ---
:1945 Author Organization [place] Address [address] [place] [address] Care Team Providers Name Role Phone Unavailable Primary Care Provider Unavailable Encounter Details Date Type Department Care Team Description 04/03/2019 Records - [facility] GERIATRIC SERVICES Laboratory OF [facility] [address] [place] [phone] [place], [place] [phone] [id number] Social History Tobacco Use Types Packs/Day Years Used Date Never Assessed Sex Assigned at Date Recorded Not on file documented as of this encounter Plan of Treatment Not on filedocumented as of this encounter Procedures Procedure Name Priority Date/Time Associated Diagnosis Comme nts BASIC METABOLIC Routine 04/04/2019 6:30 AM Result s for this PANEL WEBBING SUPERVISOR procedure are i n the results section. CBC WITH PLATELETS Routine 04/04/2019 6:30 AM Res ults for this WEBBING SUPERVISOR procedure are i n the results section. documented in this encounter Results (ABNORMAL) CBC with platelets (04/04/2019 6:30 AM WEBBING SUPERVISOR) [facility] Method Time Signature WBC 7.7 4.0 - 11.0 04/04/2019 HEALTH thou/uL 9:51 AM [facility] RBC Count 2.58 (L) 4.40 - 04/04/2019 HEALTH 6.20 9:51 AM [facility]ORATORY Hemoglobin 8.0 (L) 14.0 - 04/04/2019 HEALTH 18.0 g/dL 9:51 AM [facility] Hematocrit 26.3 (L) 40.0 - 04/04/2019 HEALTH 54.0 % 9:51 AM [facility] MCV 102 (H) 80 - 100 04/04/2019 HEALTH fL 9:51 AM [facility] MCH 31.0 27.0 - 04/04/2019 HEALTH 34.0 pg 9:51 AM [facility] MCHC 30.4 (L) 32.0 - 04/04/2019 HEALTH 36.0 g/dL 9:51 AM [facility] RDW 20.2 (H) 11.0 - 04/04/2019 HEALTH 14.5 % 9:51 AM [facility] Platelet Count 142 140 - 440 04/04/2019 HEALTH thou/uL 9:51 AM [facility] Mean Platelet 11.0 8.5 - 12.5 04/04/2019 HEALTH Volume fL 9:51 AM [facility] Specimen Anatomical Collection Method / Collection Time Recei annie Time (Source) Location / Volume Laterality Blood specimen STRUCTURE OF RIGHT Venipuncture / 04/04/2019 6:30 9:35 (specimen) UPPER LIMB / Unknown AM WEBBING SUPERVISOR AM WEBBING SUPERVISOR Unknown Alison Hollins LAB - BLOOD ORDERABLES Performing Organization Address City/State/ZIP Code Phon e Number [place] [address] [phone] [address] [facility] (ABNORMAL) Basic metabolic panel (04/04/2019 6:30 AM WEBBING SUPERVISOR) [facility] gist Method Time Signature Sodium 140 136 - 145 04/04/2019 HEALTH mmol/L 11:11 AM [facility] Potassium 4.8 3.5 - 5.0 04/04/2019 HEALTH mmol/L 11:11 AM [facility] Chloride 104 98 - 107 04/04/2019 HEALTH mmol/L 11:11 AM [facility] Carbon Dioxide 23 22 - 31 04/04/2019 HEALTH (CO2) mmol/L 11:11 AM [facility] Anion Gap 13 5 - 18 04/04/2019 HEALTH mmol/L 11:11 AM [facility] Glucose 84 70 - 125 04/04/2019 HEALTH mg/dL 11:11 AM [facility] Calcium 10.2 8.5 - 10.5 04/04/2019 HEALTH mg/dL 11:11 AM [facility] Urea Nitrogen 92 (H) 8 - 28 04/04/2019 HEALTH mg/dL 11:11 AM [facility] Creatinine 3.32 (H) 0.70 - 04/04/2019 HEALTH 1.30 mg/dL 11:11 AM [facility] GFR Estimate If 22 (L) >60 04/04/2019 HEALTH Black mL/min/1.7 11:[address] LABORATORY GFR Estimate 18 (L) >60 04/04/2019 HEALTH mL/min/1.7 11:11 AM [address] LABORATORY Specimen Anatomical Collection Method / Collection Time Recei annie Time (Source) Location / Volume Laterality Blood specimen STRUCTURE OF RIGHT Venipuncture / 04/04/2019 6:30 9:35 (specimen) UPPER LIMB / Unknown AM WEBBING SUPERVISOR AM WEBBING SUPERVISOR Unknown Narrative O LABORATORY - 04/04/2019 11:11 AM WEBBING SUPERVISOR Fasting Glucose reference range is 70-99 mg/dL per [employer] (ADA) maryan soriano Alison Hollins LAB - BLOOD ORDERABLES Performing Organization Address City/State/ZIP Code Phon [place] [id number] [place] [address] LABORATORY [facility] [address] [place] [address], [facility] documented in this encounter Visit Diagnoses Not on filedocumented in this encounter
--- OUTSIDE RECORDS SUMMARY | 2021-12-22 11:26 | XMS_ITS | Clinical Summary ---
:1945 Author Organization [facility] Address [address] [facility] [[email or web address]] [address] [place] [address] Phone Care Team Providers Name Role Phone Unavailable Primary Care Provider Unavailable Encounters Date Type Specialty Care Team Description 12/15/2021 Orders Only NephErnie Mccoy MD 12/08/2021 Orders Only NephErnie Mccoy MD 12/08/2021 Treatment Ernie Pompa MD 12/01/2021 Orders Only NephErnie Mccoy MD 12/01/2021 Treatment Ernie Pompa MD 11/24/2021 Orders Only NephErnie Mccoy MD 11/17/2021 Orders Only NephErnie Mccoy MD 11/10/2021 Orders Only NephErnie Mccoy MD 11/10/2021 Treatment Ernie Pompa MD 11/03/2021 Orders Only NephErnie Mccoy MD 10/27/2021 Orders Only Ernie Parnell MD 10/27/2021 Treatment Ernie Pompa MD 10/20/2021 Orders Only NephErnie Mccoy MD 10/13/2021 Orders Only Ernie Parnell MD 10/13/2021 Treatment Ernie Pompa MD 10/06/2021 Orders Only NephErnie Mccoy MD 09/29/2021 Orders Only Ernie Parnell MD 09/29/2021 Treatment Ernie Pompa MD 09/22/2021 Orders Only NephErnie Mccoy MD from Last [...] Date/Time Associated Diagnosis Comme nts HEMATOLOGY Routine 12/15/2021 Results for thi s procedure are i n the results section . HEMATOLOGY Routine 12/08/2021 Results for thi s procedure are i n the results section . HEMATOLOGY Routine 12/01/2021 Results for thi s procedure are i n the results section . S[facility]RA [facility] LAB RESULTS Routine 11/24/2021 Resul ts for this procedure are i n the results section . HD KINETICS Routine 11/24/2021 Results for thi s procedure are i n the results section . POST CHEMISTRY Routine 11/24/2021 Results for t his procedure are i n the results section . CHEMISTRY Routine 11/24/2021 Results for thi s procedure are i n the results section . HEMATOLOGY Routine 11/24/2021 Results for thi s procedure are i n the results section . IMMUNO CHEMISTRY Routine 11/24/2021 Results for this procedure are i n the results section . CHEMISTRY Routine 11/24/2021 Results for thi s procedure are i n the results section . HEMATOLOGY Routine 11/17/2021 Results for thi s [...] from Last 3 Months Results (ABNORMAL) HEMATOLOGY (12/15/2021)Only the most recent of13 resultswithin the time period is included. Analysis Performed At Patho logist Time Signature Hemoglobin 11.0 (L) 14.0 - [facility]PS [facility]RA 18.0 g/dL [facility] Hemoglobin x 3 33.0 (L) 42.0 - [facility] 54.0 % [facility] Specimen (Source) Anatomical Collection Method Collection Time Re ceived Time Location / / Volume Laterality 12/15/2021 12/16/2021 8:02 AM CDT Narrative [facility]PS SPECTRA [facility] - 12/16/2021 Unless otherwise specified, test(s) performed at: [facility], [address] [place], [place] [address], [place] [address] ADJUNCT TRAINER: Alhaji Noguera M.D., Ph.D For any questions, please call customer service at FREQUENCY:OTHER Resulting Agency Comment Specimen source: Blood Ernie Pompa MD LAB BLOOD ORDERABLES Performing Organization Address City/[facility] Phon e Number APS SPECTRA [facility] HD KINETICS (11/24/2021)Only the most recent of3 resultswithin the time period is included. P athologist Signature % Urea 73 65 - 80 % [facility] Reduction [facility] Specimen (Source) Anatomical Collection Method Collection Time Re ceived Time Location / / Volume Laterality 11/24/2021 11/26/2021 7:00 AM CDT Resulting Agency Comment Specimen source: Plasma Ernie Pompa MD LAB BLOOD ORDERABLES Performing Organization Address City/[facility] Phon e Number APS SPECTRA [facility] POST CHEMISTRY (11/24/2021)Only the most recent of3 resultswithin the time period is included. P athologist Signature BUN Post 13 6 - 19 [facility] Dialysis mg/dL [facility] Specimen (Source) Anatomical Collection Method Collection Time Re ceived Time Location / / Volume Laterality 11/24/2021 11/26/2021 7:00 AM CDT Narrative APS SPECTRA [facility] - 11/26/2021 Unless otherwise specified, test(s) performed at: [facility], [address] [place] [address], [place] [address] ADJUNCT TRAINER: Alhaji Noguera M.D., Ph.D For any questions, please call customer service at FREQUENCY:MONTHLY Resulting Agency Comment Specimen source: Plasma Ernie Pompa MD LAB BLOOD ORDERABLES Performing Organization Address City/[facility] Phon e Number APS SPECTRA [facility] IMMUNO CHEMISTRY (11/24/2021)Only the most recent of3 resultswithin the time period is included. P athologist Signature Hep B Surface Negative Negative APS SPECTRA Ag [facility] Specimen (Source) Anatomical Collection Method Collection Time Re ceived Time Location / / Volume Laterality 11/24/2021 11/26/2021 6:09 AM CDT Resulting Agency Comment Specimen source: Plasma Ernie Pompa MD LAB BLOOD ORDERABLES Performing Organization Address City/State/ZIP Code Phon e Number APS SPECTRA [facility] (ABNORMAL) Spectrae Chemistry (11/24/2021)Only the most recent of7 resultswithin the time period is included. [facility] Method Time Signature BUN 48 (H) 6 - 19 APS [facility]RA mg/dL [facility] Creatinine 5.30 (H) 0.60 - [facility] 1.30 mg/dL [facility] BUN/Creatinine 9.1 (L) 10.0 - [facility] Ratio 20.0 [facility] Sodium 137 136 - 145 [facility] mEq/L [facility] Potassium 5.6 (H) 3.5 - 5.1 [facility] mEq/L [facility] Chloride 100 96 - 108 [facility] mEq/L [facility] Bicarbonate 28 20 - 31 APS SPECTRA (CO2) mEq/L [facility] Comment: Please note change in reference range. Calcium 9.4 8.7 - 10.4 mg/dL APS SPECTRA [facility] Comment: Please note change in reference range. Corrected Calcium 9.6 8.7 - 10.4 mg/dL APS S PECTRA [facility] Comment: Corrected Calcium is not equivalent to m easured Ionized Calcium. Phosphorus 4.2 2.6 - 4.5 mg/dL APS SPECTRA K [...] 1.0 - 2.0 APS SPECTRA [facility] Iron 45 45 - 160 mcg/dL APS SPECT[facility] [place] [facility] UIBC 174 155 - 355 mcg/dL APS SPECTRA K [facility] TIBC 219 185 - 515 mcg/dL APS SPECTRA K [facility] Iron Saturation (TSat) 21 20 - 55 % APS SPE CTRA [facility] Specimen (Source) Anatomical Collection Method Collection Time Re ceived Time Location / / Volume Laterality 11/24/2021 11/26/2021 5:57 AM CDT Narrative APS SPECTRA [facility] - 11/26/2021 Unless otherwise specified, test(s) performed at: [facility], [address] [place] [address] [place] [address] ADJUNCT TRAINER: Alhaji Noguera M.D., Ph.D For any questions, please call customer service at FREQUENCY:MONTHLY Resulting Agency Comment Specimen source: Serum Ernie Pompa MD LAB BLOOD ORDERABLES Performing Organization Address City/State/ZIP Code Phon e Number APS SPECTRA [facility] Spectra [facility] Lab Results (11/24/2021)Only the most recent of3 resultswithin the time period is included. P athologist Signature eNPCR 0.86 [facility] spKt/V 1.56 [facility] (Daugirdas II) spKt/V Gotch 1.64 [facility] PCR 68.60 [facility] nPCR_HD 0.92 [facility] eKt/V Gotch 1.42 [facility] eKt/V 1.36 [facility] ([place]) eKdrt/V 1.42 [facility] Specimen (Source) Anatomical Location Collection Method / Collectio n Time Received Time / Laterality Volume 11/24/2021 11/24/2021 [facility] Ordering Provider LAB BLOOD ORDERABLES Performing Organization Address [facility]/ZIP Code Phon e Number [facility] SPECIAL CHEMISTRY [...] / Group [place] M[place] [id number] 2018-Sameer [phone] [address] [address] MEDICARE ADV ([id number]) t [address] [place] [address]
--- OUTSIDE RECORDS SUMMARY | 2021-12-22 11:26 | XMS_ITS | Encounter Summary ---
:1945 Author Organization [facility] Address [address] [place] [address] Care Team Providers Name Role Phone Unavailable Primary Care Provider Unavailable Encounter Details Date Type Department Care Team Description 11/24/2021 Orders Only [facility] Ernie Guzmán MD [address] [place] [address] [place], [place] [phone] (Wo rk) Social History Tobacco Use Types Packs/Day Years Used Date Smoking Tobacco: Unknown Comments: Smoking History Info:Patient n ot screened Sex Assigned at Date Recorded Not on file documented as of this encounter Plan of Treatment Not on filedocumented as of this encounter Procedures Procedure Name Priority Date/Time Associated Diagnosis Comme nts HD KINETICS Routine 11/24/2021 Results for thi [...] this encounter Results Spectra [facility] Lab Results (11/24/2021) P athologist Signature eNPCR 0.86 [facility] spKt/V [...] Code Phon e Number [facility] HD KINETICS (11/24/2021) athologist Signature % Urea 73 65 - 80 % APS SPECTRA Reduction [facility] Specimen (Source) Anatomical Collection Method Collection Time Re ceived Time Location / / Volume Laterality 11/24/2021 11/26/2021 7:00 AM CDT Resulting Agency Comment Specimen source: Plasma Ernie Pompa MD LAB BLOOD ORDERABLES Performing Organization Address [facility] Phon e Number APS SPECTRA [facility] POST CHEMISTRY (11/24/2021) athologist Signature BUN Post 13 6 - 19 APS SPECTRA Dialysis mg/dL [facility] Specimen (Source) Anatomical Collection Method Collection Time Re ceived Time Location / / Volume Laterality 11/24/2021 11/26/2021 7:00 AM CDT Narrative APS SPECTRA [facility] - 11/26/2021 Unless otherwise specified, test(s) performed at: [facility], [address] [place] [address], [place] [address] DIRECTOR LAW ENFORCEMENT: Alhaji Noguera M.D., Ph.D For any questions, please call customer service at FREQUENCY:MONTHLY Resulting Agency Comment Specimen source: Plasma Ernie Pompa MD LAB BLOOD ORDERABLES Performing Organization Address City/[facility]/ZIP Code Phon e Number APS SPECTRA [facility] (ABNORMAL) Spectrae Chemistry (11/24/2021) [facility] Method Time Signature BUN 48 (H) [...] 11/26/2021 Unless otherwise specified, test(s) performed at: [facility], [address] [place] [address], [place] [address] DIRECTOR LAW ENFORCEMENT: Alhaji Noguera M.D., Ph.D For any questions, please call customer service at FREQUENCY:MONTHLY Resulting Agency Comment Specimen source: Serum Ernie Pompa MD LAB BLOOD ORDERABLES Performing Organization Address City/State/ZIP Code Phon e Number APS SPECTRA [facility] (ABNORMAL) HEMATOLOGY (11/24/2021) Analysis Performed At Patho logist Time Signature WBC 5.16 4.80 - APS [facility]PECTRA 10.80 [facility] 1000/mcL RBC 3.05 (L) 4.70 - APS [facility]PECTRA 6.10 [facility] mill/mcL Hemoglobin 10.3 (L) 14.0 - APS [facility] 18.0 g/dL [facility] Hemoglobin x 3 30.9 (L) 42.0 - [facility]PS [facility] 54.0 % [facility] Hematocrit 32.4 (L) 42.0 - APS [facility]PECTRA 52.0 % [facility] MCV 106 (H) 80 - 100 APS SPECTRA fl [facility] MCH 33.8 (H) 27.0 - APS [facility]PECTRA 31.0 pg [facility] MCHC 31.8 30.0 - APS [facility]PECTRA 36.0 g/dL [facility] RDW 16.3 (H) 11.5 - APS [facility]PECTRA 14.5 % [facility] Platelets 179 130 - 400 APS [facility]PECTRA 1000/mcL [facility] Specimen (Source) Anatomical Collection Method Collection Time Re ceived Time Location / / Volume Laterality 11/24/2021 11/26/2021 5:25 AM CDT Narrative APS SPECTRA [facility] - 11/26/2021 Unless otherwise specified, test(s) performed at: [facility], [address] [place] [address], [place] [address] DIRECTOR LAW ENFORCEMENT: Alhaji Noguera M.D., Ph.D For any questions, please call customer service at FREQUENCY:MONTHLY Resulting Agency Comment Specimen source: Blood Ernie Pompa MD LAB BLOOD ORDERABLES Performing Organization Address City/[facility] Code Phon e Number APS SPECTRA [facility] IMMUNO CHEMISTRY (11/24/2021) athologist Signature Hep B Surface Negative Negative APS SPECTRA Ag [facility] Specimen (Source) Anatomical Collection Method Collection Time Re ceived Time Location / / Volume Laterality 11/24/2021 11/26/2021 6:09 AM CDT Resulting Agency Comment Specimen source: Plasma Ernie Pompa MD LAB BLOOD ORDERABLES Performing Organization Address City/State/ZIP Code Phon e Number APS SPECTRA [facility] (ABNORMAL) Spectrae Chemistry (11/24/2021) P athologist Signature PTH 369 (H) 16 - 80 APS SPECTRA pg/mL [facility] Specimen (Source) Anatomical Collection Method Collection Time Re ceived Time Location / / Volume Laterality 11/24/2021 11/26/2021 6:09 AM CDT Narrative APS SPECTRA [facility] - 11/26/2021 Unless otherwise specified, test(s) performed at: [facility], [address] [place] [address] [place] [address] DIRECTOR LAW ENFORCEMENT: Alhaji Noguera M.D., Ph.D For any questions, please call customer service at FREQUENCY:MONTHLY Resulting Agency Comment Specimen source: Plasma Ernie Pompa MD LAB BLOOD ORDERABLES Performing Organization Address City/State/ZIP Code Phon e Number APS SPECTRA [facility] documented in this encounter Visit Diagnoses Not on filedocumented in this encounter
--- OUTSIDE RECORDS SUMMARY | 2021-12-22 11:26 | XMS_ITS | Encounter Summary ---
:1945 Author Organization [facility] Address [address] [place] [address] Care Team Providers Name Role Phone Unavailable Primary Care Provider Unavailable Encounter Details Date Type Department Care Team Description 12/15/2021 Orders Only [facility] Ernie Guzmán MD [address] [place] [address] [place], [place] [phone] (Wo rk) Social History Tobacco Use Types Packs/Day Years Used Date Smoking Tobacco: Unknown Comments: Smoking History Info:Patient n ot screened Sex Assigned at Date Recorded Not on file documented as of this encounter Plan of Treatment Not on filedocumented as of this encounter Procedures Procedure Name Priority Date/Time Associated Diagnosis Comme nts HEMATOLOGY Routine 12/15/2021 Results for thi s procedure are in the resu lts section. documented in this encounter Results (ABNORMAL) HEMATOLOGY (12/15/2021) Analysis Performed At Patho logist Time Signature Hemoglobin 11.0 (L) 14.0 - APS SPECTRA 18.0 g/dL [facility] Hemoglobin x 3 33.0 (L) 42.0 - APS SPECTRA 54.0 % [facility] Specimen (Source) Anatomical Collection Method Collection Time Re ceived Time Location / / Volume Laterality 12/15/2021 12/16/2021 8:02 AM CDT Narrative APS SPECTRA [facility] - 12/16/2021 Unless otherwise specified, test(s) performed at: [facility], [address] [place] [address], [place] [address] HEEL SEAT FLAP STAPLER: Alhaji Noguera M.D., Ph.D For any questions, please call customer service at FREQUENCY:OTHER Resulting Agency Comment Specimen source: Blood Ernie Pompa MD LAB BLOOD ORDERABLES Performing Organization Address City/State/ZIP Code Phon e Number APS SPECTRA [facility] documented in this encounter Visit Diagnoses Not on filedocumented in this encounter
--- OUTSIDE RECORDS SUMMARY | 2021-12-22 11:26 | XMS_ITS | Encounter Summary ---
:1945 Author Organization [facility] Address [address] [place] [address] Care Team Providers Name Role Phone Liban [...] on filedocumented in this encounter Care Teams Publications Editor Relationship Specialty Start Date End Date Liban Leos PCP - General Family Medicine 10/08/21 [address] [place], [place] [phone] Ernie Pompa MD MD Nephrology 10/08/21 [address] [place] [address] documented as of this encounter
--- OUTSIDE RECORDS SUMMARY | 2021-12-22 11:26 | XMS_ITS | Encounter Summary ---
:1945 Author Organization [place] Address [facility] [place] [address] Care Team Providers Name Role Phone Liban Leos Primary Care Provider Ernie Pompa MD Unavailable Reason for Visit Reason Comments Hypotension Auth/Cert Specialty Diagnoses / Procedures Referred By Contact Refer red To Contact Med Surg Diagnoses UGI bleed UGI bleed 5 Medical Surgical [address] [place], [place] [address] Phone: Fax: Referral ID Status Reason Start Date Expiration Date Visits Requ ested Visits Authorized [id number] 1 1 Encounter Details Date Type Department Care Team Description 10/10/2021 Surgery [facility] Lizz, ESOPHAGOGA STRODUODENOSCOPY [facility] Joce biopsies Services MD Edgard [address] [place] [address] [address] [phone] JULIO ESPANA [place], [place] [id number] Surgery Details Date/Time Status Location OR Service Patient Case Case Traum a Class Class Type Case? 10/10/21 8:25 Posted OR OR 02 Gastroenterology Inpatient AM Panel 1 Procedure LRB Anes Op Region Wound Class Commen ts ESOPHAGOGASTRODUODENOSCOPY biopsies N/A MAC Mouth II-Clean Contaminated Surgeon Surgeon Role Service Panel Joce [...] CDT Pulse 72 10/10/2021 7:20 AM per television repair teacher CDT Temperature 36.5 ??C (97.7 ??F) 10/09/2021 [...] 10/11/2021 10:42 AM CDT Hospitalist Discharge Summary [facility] Jonatan Mejia Date of : [...] daily fluticasone (FLONASE) 50 MCG/ACT nasal spray Animas 1 spray in nostril daily fluticasone-salmeterol (ADVAIR [...] ulcer and??morbid obesity??who??presents to the ED from [facility] due to concerns of hematemesis and melanotic stool. He had just finished HD (took 1.2L) and presented to [facility] due to concerns of dizziness and hematemesis. ?? Work up at [facility] showed hgb of 7.5 and soft pressures in the 100's. CT abd pelvis showed normal distal esophagus, stomach and normal liver. No symptoms of obstruction or mass. There were moderate ascites in the dependent abdomen. He received NS bolus (500cc) and 1 unit(s) PRBC and transferred to [facility]. 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 He does also have a history of [...] was: 35 Minutes Dallin Farah DO MPH [facility] Hospitalist Clark Lentz [facility] [place] [address] 10/11/2021 documented in this encounter Medications at Time of Discharge Medication Sig Dispensed Refills Start Date End Date allopurinol (ZYLOPRIM) Take 100 mg by mouth 0 100 MG tablet daily atorvastatin (LIPITOR) Take 20 mg by mouth 0 11/19 20 MG tablet daily fluticasone (FLONASE) 50 Animas 1 spray in 0 12/15 MCG/ACT nasal [...] walker and gait belt, denies pain, GREY, [id number] on RA. VSS, continues to be anuric. [...] to treatment See Adult Hemodialysis flowsheet in [facility] for further details and post assessment. Machine water alarm in place and functioning. Transducer pods intact and checked every 15min. Pt returned via bed. Chlorine/Chloramine water system checked every 4 hours. Outpatient Dialysis at [facility] Post treatment report given to Delilah Goldstein [...] as tolerate. No heparin. Plan discussed with belt knife feeder and patient at the bedside. Interval History: [...] Labs Lab 10/11/21 0636 10/10/21 0921 10/10/21 0710/09/21 0910/08/21 2100 10/08/21 1902 NA 134 -- 132* [...] medications, labs and imaging. Frederick Alcaraz MD [facility] - Nephrology Office phone :[phone] Pager: [phone] Jovita Blackmon RN - 10/11/2021 7:05 AM [...] Plan: Protonix PO , bleeding precaution. Dallin Fraah DO - 10/10/2021 12:36 PM CDT [facility] Hospitalist Progress Note Name: Jonatan [...] morbid obesity??who presents to the ED from [facility] due to concerns of hematemesis and melanotic stool. He had just finished HD (took 1.2L) and presented to [facility] due to concerns of dizziness and hematemesis. ?? Work up at [facility] showed hgb of 7.5 and soft pressures in the 100's. CT abd pelvis showed normal distal esophagus, stomach and normal liver. No symptoms of obstruction or mass. There were moderate ascites in the dependent abdomen. He received NS bolus (500cc) and 1 unit(s) PRBC and transferred to [facility]. Work up in our ED reveals [...] Laboratory: Recent Labs Lab 10/10/2172110/10/2121410/09/21220110/09/21 1348 10/09/21 0912 10/08/21 2247 10/08/21 190 WBC 7.2 -- -- -- 7.2 -- 7.1 HGB 9.7* 9.2* 10.3* < > 8.5* < > 8.1* HCT 31.5* -- -- -- 28.4* -- 26.1* MCV 109* -- -- -- 111* -- 110* PLT 173 -- -- -- 157 -- 161 < > = values in this interval not displayed. Recent Labs Lab 10/10/2192010/10/2172110/09/2191110/08/21209910/08/21 190 NA -- 132* 134 -- 136 POTASSIUM [...] this interval not displayed. Recent Labs Lab 10/10/2192010/10/2172110/09/2191110/08/21 2100 10/08/21 190 GLC 126* 117* 98 104* 115* Recent Labs Lab 10/10/2172110/10/2121410/09/212201 HGB 9.7* 9.2* 10.3* No results for input(s): CULT in the last 168 hours. Imaging: No results found for this or any previous visit (from the past 24 hour(s)). Dallin Farah DO MPH [facility] [place] [address] 10/10/2021 Terry Wolfe MD - 10/10/2021 9:14 [...] mcg/hr (10/09/21 1126) Current active medications and MUNICIPAL [employer] JUDGE medications reviewed, see medication list for details. [...] Labs Lab Test 10/10/21 0722 10/10/21 0215 10/09/21220110/09/21 1348 10/09/21 0912 10/08/21 2247 10/08/211901 WBC [...] results for input(s): MAG in the last 95533 hours. No results for input(s): PHOS in the last 13576 hours. Recent Labs Lab Test 10/10/21 0722 [...] Farah DO - 10/09/2021 10:04 AM CDT [facility] Hospitalist Progress Note Name: Jonatan [...] morbid obesity??who presents to the ED from [facility] due to concerns of hematemesis and melanotic stool. He had just finished HD (took 1.2L) and presented to [facility] due to concerns of dizziness and hematemesis. ?? Work up at [facility] showed hgb of 7.5 and soft pressures in the 100's. CT abd pelvis showed normal distal esophagus, stomach and normal liver. No symptoms of obstruction or mass. There were moderate ascites in the dependent abdomen. He received NS bolus (500cc) and 1 unit(s) PRBC and transferred to [facility]. Work up in our ED reveals [...] Q8H Data Laboratory: Recent Labs Lab 10/09/21 0910/08/21 2247 10/08/21 1902 WBC 7.2 -- 7.1 [...] Lab 10/09/21 0912 10/08/21 2100 10/08/21 190 GLC 98 104* 115* Recent Labs Lab 10/09/21 0912 10/08/21 2247 10/08/211901 HGB 8.5* 7.7* 8.1* No results for input(s): CULT in the last 168 hours. Imaging: No results found for this or any previous visit (from the past 24 hour(s)). Dallin Farah DO MPH [facility] Hospitalist Clark Lentz [facility] [place] [address] 10/09/2021 documented in this encounter H&P Notes Layne Rossi PA-C - 10/08/2021 9:27 PM CDT [facility] Admission History and Physical Examination NAME: [...] morbid obesity??who presents to the ED from [facility] due to concerns of hematemesis and melanotic stool. He had just finished HD (took 1.2L) and presented to [facility] due to concerns of dizziness and hematemesis. Work up at [facility] showed hgb of 7.5 and soft bps in the 100's. CT abd pelvis showed normal distal esophagus, stomach and normal liver. No sxs of obstruction or mass. There were moderate ascites in the dependent abd. He received NS bolus (500cc) and 1u PRBC and transferred to [facility]. Work up in our ED reveals [...] morbid obesity??who presents to the ED from [facility] [facility] due to concerns of hematemesis and melanotic stool. He had just finished HD (took 1.2L) and presented to [facility] due to concerns of dizziness and hematemesis. Work up at [facility] showed hgb of 7.5 and soft bps in the 100's. CT abd pelvis showed normal distal esophagus, stomach and normal liver. No sxs of obstruction or mass. There were moderate ascites in the dependent abd. He received NS bolus (500cc) and 1u PRBC and transferred to [facility]. Work up in our ED reveals [...] 50 MCG/ACT nasal spray Yes Yes Sig: Animas 1 spray in nostril daily fluticasone-salmeterol (ADVAIR [...] 16 AST -- 15 Layne Rossi PA-C [facility] Medicine October 08, 2021 Securely message with the [employer] Console (learn more here) Text page via [facility] Paging/Directory Associated attestation - Fadi Viveros DO - 10/09/2021 2:30 PM CDT Physician Attestation I, Fadi Viveros DO, have reviewed and discussed with the advanced practice provider their history, physical and plan for Dunn B Terrence. I did not participate in a shared visit by interviewing or examining the patient and this should be billed as an advanced practice provider only visit. Fadi Viveros DO Date of Service (when I saw the patient): I did not personally see this patient today. documented in this encounter Consult Notes Joce Zamudio MD - 10/09/2021 11:33 AM CDTAssociated Order(s): GASTROENTEROLOGY IP CONSULT [facility] Gastroenterology Consultation Joce Zamudio MD Patient [...] having then some abdominal pain withemesis of gurerero red emesis. He has had no significant ongoing bloody bowel movements. He has minimal epigastric pain. He was lightheaded at that time and he did have some pain at that time so he came to the emergency room. He has dialysis scheduled for next Monday and the renal consultation from thisadmission is reviewed and appreciated. He had an EGD June 28 at [facility]. Preoperative indication was Brannon's surveillance. 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 Biopsies were negative for Brannon's but did show esophagitis. Stomach showed diffuse gastritis with old blood consistent with erosive gastritis. Moderate duodenitis was noted. This was confirmed on biopsy and suspected be due to nonsteroidals likely aspirin. He reports an EGD in the remote past at [facility] that showed ulcers. He has ascites on [...] Medication Sig Last Dose Taking? Auth Provider Diesel Roller Operator End Date allopurinol (ZYLOPRIM) 100 MG tablet [...] Yes fluticasone (FLONASE) 50 MCG/ACT nasal spray Animas 1 spray in nostril daily 10/07/2021 at [...] reviewed. . Recent Labs Lab Test 10/09/21 0910/08/217 10/08/214 10/08/21190104/08/19 0745 WBC 7.2 -- -- 7.1 5.2 HGB 8.5* 7.7* -- 8.1* 7.9* MCV 111* -- -- 110* 100 PLT 157 -- -- 161 140 INR -- -- 1.34* -- -- Recent Labs Lab Test 10/09/21 0912 10/08/212 04/08/19 0745 NA 134 136 137 POTASSIUM 4.8 3.9 5.2* CHLORIDE 100 100 102 CO2 28 30 22 BUN 42* 36* 101* CR 3.52* 2.80* 3.66* ANIONGAP 6 6 13 Recent Labs Lab Test 10/08/211901 ALBUMIN 2.9* BILITOTAL 0.8 ALT 16 AST 15 ALKPHOS 116 Joce Zamudio MD, [facility] [phone] Terry Wolfe MD - 10/09/2021 10:29 AM CDT Consult Date: 10/09/2021 REQUESTING PHYSICIAN: Dallin Farah MD. CHANNEL PROCESS PLANT OPERATOR: Dallas Wolfe MD. REASON FOR CONSULTATION: [...] [place] alone [place]. REVIEW OF SYSTEMS: He feels relatively well [...] ETREMT Name: JONATAN MEJIA. MRN: [id number] Account: [id number] : 1945 Consult Date: 10/09/2021 Document: [id number] Terry Wolfe MD - 10/09/2021 10:24 AM CDTAssociated Order(s): NEPHROLOGY IP CONSULT See dictation. Confirmation # [id number]. documented in this encounter ED Notes Essence [...] Trejo RN - 10/08/2021 11:05 PM CDT [facility] ED Nurse Handoff Report Jonatan Mejia [...] X 1. Lift room needed:No. Bariatric: No Ad Clerk Needed: No Isolation: No. Infection: Not Applicable. [...] injection 4 mg (4 mg Intravenous Given 7/22/22 2117) lactated ringers BOLUS 250 mL (0 mLs [...] - 10/08/2021 6:30 PM CDT sent from [facility]. Dialysis patient with hypotension today. Given 500ml and 1 unit PRBC at [facility]. Florentino Ragsdale MD - 10/08/2021 6:23 PM [...] Kaylee Trejo RN Pharmacy-Admission Medication History - BernabesudhirfranciscaOwenErlin T, [facility] - 10/08/2021 10:14 PM CDT Admission medication history interview status for this patient is complete. See [facility] admission navigator for allergy information, prior to admission medications and immunization status. Medication history interview done, indicate source(s): Patient Medication history resources (including written lists, pill bottles, clinic record): Michael Camachobox Pharmacy: [id number] - [place], [place] - [address] [facility] [phone]GE medication list: Added: ALL Actions taken by [...] Yes fluticasone (FLONASE) 50 MCG/ACT nasal spray Animas 1 spray in nostril daily 10/07/2021 at [...] Diagnosis HEMODIALYSIS SINGLE TREATMENT Routine 10/11/2021 SETUP ([facility]) 4:33 PM CDT HEMODIALYSIS DIALYZER ([facility]) Routine 10/11/2021 2:28 PM CDT IP TERMINATION [...] B surface antigen (10/11/2021 7:46 AM CDT) [facility]Up Method Time Signature Hepatitis B Nonreactive Nonreactive [...] e Number [facility]/PROT/ENDO [facility] [place] [address] Core/Prot/Endo [address] [facility] [address], Room 3-580 (ABNORMAL) CBC with platelets (10/11/2021 6:36 AM CDT) [facility] Method Time Signature WBC Count 7.1 4.0 [...] STRUCTURE OF RIGHT Venipuncture / 10/11/2021 6:36 09/18 6:42 HAND / Unknown Unknown AM CDT AM CDT Dallin Farah DO LAB - BLOOD ORDERABLES Performing Organization Address City/State/ZIP Code Ph[place] [phone] Care Lab [address] Lab (1st floor, no room number) (ABNORMAL) Basic metabolic panel (10/11/2021 6:36 AM CDT) [facility] Method Time Signature Sodium 134 133 [...] and gender (Brigette et al., NEJM, DOI: 10.1056/YIUSoo7849439) Specimen Anatomical Collection Method / Collection Time Recei annie Time (Source) Location / Volume Laterality Blood STRUCTURE OF RIGHT Venipuncture / 10/11/2021 6:36 09/18 6:42 HAND / Unknown Unknown AM CDT AM CDT Dallin Farah DO LAB - BLOOD ORDERABLES Performing Organization Address City/State/ZIP Code Phon [place] [address] Care Lab [address] Lab (1st floor, no room number) (ABNORMAL) Glucose by meter (10/10/2021 9:21 AM CDT) P athologist Signature GLUCOSE BY 126 (H) 70 - 99 10/10/2021 LABORATORY METER POCT mg/dL 9:27 AM CDT POC Specimen (Source) Anatomical Collection Method Collection Time Re ceived Time Location / / Volume Laterality Blood, Capillary BLOOD SPECIMEN / 10/10/2021 9:21 0706/2021 9:27 Unknown AM CDT AM CDT Rhys Duarte MD LAB - BEAKER POCT Performing Organization Address [facility]/ZIP Code Phon e [place] [address] Care Lab [address] Lab (1st floor, no room number) Surgical Pathology Exam (10/10/2021 8:58 AM CDT) Component Value Ref Test Analysis Performed Pathologis t Range Method Time At Signature Case Report Surgical Pathology Report ? Case: [id number] ? Authorizing Provider: ??Carb allo, Joce ? Collected: ? 10/10/2021 08:58 AM ? 2 8:22 AM LABORA MOISES ? MD Edgard ? CDT [facility] Received: ?10/10/2021 09:42 AM ? [...] was 2 8:22 AM LABORATORY completed at [facility] Laboratory Case Images 2 [...] Address City/State/ZIP Code [place] [address] Care Lab [address] [facility] Lab (1st floor, no room number) UPPER GI ENDOSCOPY (10/10/2021 8:18 AM CDT) Component Value Ref Test Analysis Performed At [facility] Range Method Time Signature Upper GI [facility] RADIOLOGY Endoscopy RESULTS Patient Name: Jonatan Mejia ? Procedure Date: 09/18 8:18 AM ? Account Num flako: [id number] Date of : 1945 ?Admit Type: Inp [...] Model ?# [id number], Endora # 205, SN #[id number] was ?introduced through the mouth, and advanced [...] Note Initiated On: 10/10/2021 8:18 AM MRN: ?[id number] Procedure Date: ? 10/10/2021 8:18:14 AM Total [...] CBC with platelets (10/10/2021 7:22 AM CDT) [facility] Method Time Signature WBC Count 7.2 [...] City/State/ZIP Code Phon [place] [address] Care Lab [address] Lab (1st floor, no room number) (ABNORMAL) Basic metabolic panel (10/10/2021 7:22 AM CDT) [facility] Method Time Signature Sodium 132 (L) 133 - 144 10/10/2021 RH LABORATORY mmol/L 7:54 AM CDT Potassium 5.1 3.4 - 5.3 10/10/2021 RH LABORATORY mmol/L 7:54 AM CDT Chloride 100 94 - 109 10/10/2021 RH LABORATORY mmol/L 7:54 AM CDT Carbon Dioxide 25 20 - 32 10/10/2021 RH LABORATORY (CO2) mmol/L 7:54 AM CDT Anion [...] Glucose 117 (H) 70 - 99 10/10/2021 RH LABORATORY mg/dL 7:54 AM CDT GFR Estimate 13 (L) >60 10/10/2021 RH LABORATORY mL/min/1.7 7:54 AM CDT 3m2 Comment: Effective March 09, 2021 eGF Rcr in adults is calculated using the 2020 CKD-EPI creatinine equation which includ es age and gender (Brigette et al., NEJM, DOI: 10.1056/BRRNlt4751735) Specimen Anatomical Collection Method / Collection Time Recei annie Time (Source) Location / Volume Laterality Blood STRUCTURE OF RIGHT Venipuncture / 10/10/2021 7:22 07/2 06/2021 7:31 UPPER LIMB / Unknown AM CDT AM CDT Unknown Dallin Farah DO LAB - BLOOD ORDERABLES Performing Organization Address City/State/ZIP Code [place] [address] Care Lab [address] Lab (1st floor, no room number) [...] LAB - BLOOD ORDERABLES Performing Organization Address [facility]/ZIP [place] [address] Care Lab [address] Lab (1st floor, no room number) (ABNORMAL) Hemoglobin (10/09/2021 10:02 PM CDT) P athologist Signature Hemoglobin 10.3 (L) 13.3 - 17.7 10/09/2021 RH LABORATORY g/dL 10:45 PM CDT Specimen Anatomical Collection Method / Collection Time Recei annie Time (Source) Location / Volume Laterality Blood STRUCTURE OF RIGHT Venipuncture / 10/09/2021 10:02 [place] / Unknown PM CDT 10:16 PM CDT Unknown Dallin Farah DO LAB - BLOOD ORDERABLES Performing Organization Address City/[facility]/ZIP [place] [address] Care Lab [address] Lab (1st floor, no room number) [...] LAB - BLOOD ORDERABLES Performing Organization Address City/[facility]/ZIP [place] [address] Care Lab [address] Lab (1st floor, no room number) Transfuse red blood cells (unit) No special requirements (10/09/2021 11:51 AM CDT) Dallin Simons MD BLOOD TRANSFUSION ORDERABLES Transfuse red blood cells (unit), 1 Units No special requirements (10/09/2021 11:51 AM CDT) Dallin Simons MD BLOOD TRANSFUSION ORDERABLES (ABNORMAL) CBC with platelets (10/09/2021 9:12 AM CDT) [facility] gist Method Time Signature WBC [...] City/State/ZIP Code Phon [place] [phone] Care Lab [address] Lab (1st floor, no room number) (ABNORMAL) Basic metabolic panel (10/09/2021 9:12 AM CDT) [facility] Method Time Signature Sodium 134 133 [...] CDT Glucose 98 70 - 99 10/09/2021 LABORATORY mg/dL 9:56 AM CDT GFR Estimate 17 (L) >60 10/09/2021 RH LABORATORY mL/min/1.7 9:56 AM CDT 3m2 Comment: Effective March 09, 2021 eGF Rcr in adults is calculated using the 2020 CKD-EPI creatinine equation which includ es age and gender (Brigette et al., NEJ, DOI: 10.1056/HMRMmx4482370) Specimen Anatomical Collection Method / Collection Time Recei annie Time (Source) Location / Volume Laterality Blood STRUCTURE OF RIGHT Venipuncture / 10/09/2021 9:12 07/2 05/2021 9:34 HAND / Unknown Unknown AM CDT AM CDT Layne Rossi PA-C LAB - BLOOD ORDERABLES Performing Organization Address City/State/ZIP Code Phon [place] [address] Care Lab [address] Lab (1st floor, no room number) Prepare red blood cells (unit) (10/09/2021 6:52 AM CDT) [facility] Method Time Signature CROSSMATCH Compatible RH BLOOD BANK UNIT ABO/RH O Neg RH BLOOD BANK Unit Number [id number] RH BLOOD BANK Unit Status Transfused RH BLOOD BANK Blood Red Blood Cells RH BLOOD Component Type BANK Product Code [id number] RH BLOOD BANK CODING SYSTEM [id number] RH BLOOD BANK UNIT TYPE ISBT 9500 RH BLOOD BANK ISSUE DATE AND [id number] RH BLOOD TIME BANK Specimen (Source) Anatomical Collection Method Collection Time Re ceived Time Location / / Volume Laterality 10/09/2021 6:52 AM CDT Dallin Simons MD BLOOD BANK PRODUCT ORDERABLE S Performing Organization Address City/State/ZIP Code Phon e Number RH BLOOD BANK [address] [place] [address] Transfuse red blood cells (unit) No special [...] RESULTS QTc 477 ms RADIOLOGY RESULTS P [place] degrees RADIOLOGY RESULTS R AXIS 107 degrees RADIOLOGY RESULTS T [place] 33 degrees RADIOLOGY RESULTS Interpretation Atrial fibrillation RADIO LOGY ECG Right bundle branch block RESU LTS Abnormal ECG No previous ECGs available Confirmed by - EMERGENCY [place] PHYSICIAN ([id number]), greeting card editor ANDRÉS HATCH ([id number]) on 10/11/2021 6:42:29 AM Specimen Anatomical Collection Method Collection Time Receive d Time (Source) Location / / Volume Laterality 10/09/2021 12:52 10/11/2021 6:42 AM CDT AM CDT Layne Ray Rossi PA-C ECG ORDERABLES Performing Organization Address City/[facility]/ZIP Code Phon e Number RADIOLOGY RESULTS Prepare red blood cells (unit) (10/08/2021 11:46 PM CDT) Patholo gist Method Time Signature CROSSMATCH Compatible RH BLOOD BANK UNIT ABO/RH O Neg RH BLOOD BANK Unit Number [id number] RH BLOOD BANK Unit Status Transfused RH BLOOD BANK Blood Red Blood Cells RH BLOOD Component Type BANK Product Code [id number] RH BLOOD BANK CODING SYSTEM [id number] RH BLOOD BANK UNIT TYPE ISBT 9500 RH BLOOD BANK ISSUE DATE AND RH BLOOD TIME BANK Specimen (Source) Anatomical Collection Method Collection Time Re ceived Time Location / / Volume Laterality 10/08/2021 11:46 PM CDT Layne Rossi PA-C BLOOD BANK PRODUCT ORDERABLE S Performing Organization Address City/[facility]/ZIP Code Phon e Number RH BLOOD BANK [address] [place] [address] (ABNORMAL) Hemoglobin (10/08/2021 10:47 PM CDT) athologist [...] LAB - BLOOD ORDERABLES Performing Organization Address City/[facility]/ZIP Code Phon e [place] [address] Care Lab [address] [facility] Lab (1st floor, no room [...] LAB - BEAKER POCT Performing Organization Address City/State/ZIP Code Phon e Number [place] [address] Care Lab [address] Lab (1st floor, no room number) [...] the Xpert Xpress SARS-CoV-2 Assay on the locrert Instrument Systems. A dditional information about this [...] COVID-19. This test was validated by the [facility]. This laboratory is certified under the Clinical Laboratory Improvement Amendments of 1988 (CLIA-88) as qualified to perform high complexity laboratory testing. Florentino Ragsdale MD LAB - MICRO GENERAL ORDERABL ES Performing Organization Address City/State/ZIP Code [place] [address] Care Lab [address] Lab (1st floor, no room number) (ABNORMAL) INR (10/08/2021 8:44 PM CDT) P athologist Signature INR 1.34 (H) 0.85 - 1.15 10/08/2021 RH LABORATORY 9:55 PM CDT Specimen Anatomical Collection Method / Collection Time Recei annie Time (Source) Location / Volume Laterality Blood STRUCTURE OF RIGHT Venipuncture / 10/08/2021 8:44 /2 04/2021 9:41 UPPER LIMB / Unknown PM CDT PM CDT Unknown Florentino Ragsdale MD LAB - BLOOD ORDERABLES Performing Organization Address City/State/ZIP Code [place] [address] Care Lab [address] Lab (1st floor, no room number) Extra Red Top Tube (10/08/2021 7:02 PM CDT) athologist [facility] Hold Specimen JIC 10/08/2021 RH LABORATORY 8:18 PM CDT Specimen Anatomical Collection Method / Collection Time Recei annie Time (Source) Location / Volume Laterality Blood STRUCTURE OF RIGHT Venipuncture / 10/08/2021 7:02 09/18 7:10 UPPER LIMB / Unknown PM CDT PM CDT Unknown Florentino Ragsdale MD LAB - BLOOD ORDERABLES Performing Organization Address City/[facility]/ZIP Code Phon [place] [address] Care [address] Lab (1st floor, no room number) [...] Unknown PM CDT PM CDT Unknown Florentino Ragdsale MD LAB - BLOOD ORDERABLES Performing Organization Address City/[facility]/ZIP Code Phon [place] [address] Care Lab [address] Lab (1st floor, no room number) Adult Type and Screen (10/08/2021 7:02 PM CDT) [facility] LoopUp Method Time Signature ABO/RH(D) O NEG 10/08/2021 RH BLOOD 6:39 PM CDT BANK Antibody Negative Negative 10/08/2021 RH BLOOD Screen 6:39 PM CDT BANK SPECIMEN [id number] 10/08/2021 RH BLOOD EXPIRATION 6:39 PM CDT BANK DATE Specimen Anatomical Collection Method / Collection Time Recei annie Time (Source) Location / Volume Laterality Blood STRUCTURE OF RIGHT Venipuncture / 10/08/2021 7:02 09/18 7:10 UPPER LIMB / Unknown PM CDT PM CDT Unknown Florentino Ragsdale MD LAB - BLOOD BANK TEST ORDER Performing Organization Address City/[facility]/ZIP Code Phon e Number RH BLOOD BANK [address] [place] [address] (ABNORMAL) Comprehensive metabolic panel (10/08/2021 7:02 PM CDT) [facility] Method Time Signature Sodium 136 133 - [...] and gender (Brigette et al., NEJM, DOI: 10.1056/[id number]) Specimen Anatomical Collection Method / Collection Time Recei annie Time (Source) Location / Volume Laterality Blood STRUCTURE OF RIGHT Venipuncture / 10/08/2021 7:02 /04/2021 7:10 UPPER LIMB / Unknown PM CDT PM CDT Unknown Florentino Ragsdale MD LAB - BLOOD ORDERABLES Performing Organization Address City/State/ZIP Code [place] [address] Care Lab [address] Lab (1st floor, no room number) [...] 100 mg 0940 (Given - Provider: Essence Osuna, [...] 40 mg 1207 (Given - Provider: Kaylee Trejo, OVI) 0638 (Given - Provider: Jovita Blackmon, OVI) [...] Generic Provider) 0816 (Given - Provider: Melanie Rodriguez, OVI)1232 (Given - Provider: Melanie Rodriguez RN)1838 (Given - Provider: Aracelis Goldstein RN) 800 mg, Oral, 3 TIMES DAILY WITH [...] not available)1854 (Given - Provider: Aracelis Goldstein, RN) 0639 (Given - Provider: Jovita Blackmon, OVI)1233 (Given - Provider: Melanie Rodriguez, OVI)183 (Given - Provider: Aracelis Goldstein, OVI) 1 [...] Osuna RN) 0715 (Paused - Provider: Kaylee Trejo, OVI) [...] Osuna RN)1126 (Rate/Dose Verify - Provider: Essence Osuna, RN) 0350 (New Bag - Provider: Eugene Sherman, RN)0715 (Stopped - Provider: Kaylee Trejo, RN) 8 mg/hr (10 mL/hr), Intravenous, CONTINU OUS, Starting on 10/08/21 at 1940, Irritant. 1552 (New Bag - Provider: Fredy Brian, OVI) PRN Medication Order 10/09/2021 10/10/2021 10/11/2021 ipratropium [...] anesthesia at ARTERIAL fistula/graft site., Starting on Mon10/11/21 at 1428, For 1 dose, Give once, [...] 0143 documented in this encounter Care Teams Recruiting Team Lead Relationship Specialty Start Date End Date Liban Leos PCP - General Family Medicine 10/08/21 [address] [place] [address] Ernie Pompa MD MD Nephrology 10/08/21 [address] [place] [address] documented as of this encounter
--- OUTSIDE RECORDS SUMMARY | 2021-12-22 11:26 | XMS_ITS | Encounter Summary ---
:1945 Author Organization [facility] Address [address] [place] [address] Care Team Providers Name Role Phone Unavailable Primary Care Provider Unavailable Encounter Details Date Type Department Care Team Description 12/08/2021 Treatment [facility] Ernie Guzmán MD [address] [place] [address] [place], [place] [phone] (Wo rk) Social History Tobacco Use Types Packs/Day Years Used Date Smoking Tobacco: Unknown Comments: Smoking History Info:Patient n ot screened Sex Assigned at Date Recorded Not on file documented as of this encounter Miscellaneous Notes Dialysis Note - Ernie Pompa MD - 12/08/2021 10:43 AM CDT Date: Dec 08, 2021 Patient Name: Shaun Ocampo : 1945 Chart #: [id number] Sex: M This patient was personally seen for a basic visit as part of routine weekly dialysis care. A reviewof the dialysis treatment, blood pressure, estimated dry weight and recent lab values was made. These were discussed with the patient and staff as necessary. Treatment Data for 12/08/2021 started at:5:54 AM Dialyzer: 180NRe Optiflux Na: 138 mEq/L Bicarb: 34 mEq/L Dialysate: 2.0 K, 2.5 Ca, 1.0 Mg, 100 Dextrose (G2251) Dialysate/Machine Temp (prescribed): 37 C Dialysate/Machine Temp (actual): 37 C BFR (prescribed): 400 BFR (actual): 400 Prescribed time: 04:00 EDW: 108 kg Access Type: Active (In Use):AVFistula-Standard/Left Upper Arm Pre Dialysis Vitals (for 12/08/2021 5:47 AM ) Pre BP (sit): 91/46 Pre Wt: 110.5 kg Temp: 97.7 F Post Dialysis Vitals (for 12/06/2021 10:14 AM ) Post BP (sit): 117/38 Post Wt: 107.8 kg Current Dialysis Vitals (for 12/08/2021 9:30 AM ) BP (sit): 103/46 AP(-) / ANESTHESIOLOGIST/PHYSICIAN: 192/153 Pulse: 72 Chairside data as of 12/08/2021 9:30 AM Last 3 Treatments 12/06/2021 12/03/2021 12/01/2021 EDW (kg) 108 108 108 Weight Pre (kg) 111.6 110 111 Weight Post (kg) 107.8 107.2 107.4 Dialytic Weight Loss (kg) -3.8 -2.8 -3.6 EDW Deviation (kg) -0.2 -0.8 -0.6 BP Sit Pre 107/52 85/40 96/49 BP Sit Post 117/38 104/61 122/46 UF Rate (mL/kg/hr) 9 6 8 Prescribed BFR 400 400 400 Average Delivered BFR 400 410 390 Prescribed Treatment Time 04:00 04:00 04:00 Actual Treatment Time 03:43 04:01 04:00 Last 3 Values 08/27/2021 05/28/2021 04/23/2021 Access Flow 794 1101 1509 Treatment Medication Orders Medication Sig Start Date End Date Doxercalciferol (Hectorol) 5 mcg IVP Every Treatment 09/17/2021 09/16/2022 Etelcalcetide (Parsabiv) 7.5 mg IVP 3X Week Post Dialysis 11/01/2021 10/31/2022 Heparin Sodium (Porcine) 1,000 Units/mL Systemic 2000 units IVP Every Treatment 03/29/2021 03/28/2022 Heparin Sodium (Porcine) 1,000 Units/mL Systemic 1000 units IVP Every Treatment 03/29/2021 03/28/2022 Iron Sucrose (Venofer) 100 mg IVP Every Treatment 12/01/2021 12/10/2021 Mircera 200 mcg IVP Every 2 weeks 10/27/2021 10/26/2022 DONOR PROCESSOR: Ernie Pompa MD LOCATION: [phone] SCHEDULE: -- 2nd Shift ACCESS: EDW: kg. DIALYZER: HD DURATION: NEEDLE SIZE: ANTICOAG: BATH: QB: ml/min QD: ml/min Subjective Tolerating dialysis well. 12/08: Continues to do better with fluid gains, BP adequate, challenging EDW slowly. He feels well and has no new concerns. 12/01: Shaun is doing well right now. [...] after extra UF run last week at [facility]. BP adequate, challengingEDW today. His breathing is improved. Also went to wound care clinic at [facility] and they dressedwounds and he has follow-up and instructions for dressings and cares. He has no new symptoms and otherwise feels well. 10/13: Had GI bleeding on Monday, went to ER after dialysis, admitted at [facility], had 3u blood, EGDwithout obvious source, [...] and do periodic extra UF treatments at [facility] rather than risk more hypotension post-tx with use of midodrine and additional UF during treatments. He has fistulagram last week, went well and access working well since. 08/11: Continues to have problems with fluid gains. we have spent considerable time discussing this, he is trying to work on this but can't seem to avoid large gains. Will go to [facility] for UF tomorrow, needs extra treatments every 2 weeks it looks like to maintain EDW. He does get SOB when >5K over dry weight in particular. 07/21/21: Continues to struggle with fluid gains, extra UF run scheduled tomorrow at [facility]. He does feel more SOB when fluid overloaded. No new symptoms otherwise, he is enjoying the nicer weather which allows him to do more activity and not sit at home and drink fluids which he thinks will help with IDWG's. 07/14/21: Continues to have high gains, unfortunately [facility] without staff to open tomorrow for extra [...] improving. Fluid gains continue to be high, [facility] not open on this week, says he will do his best withlimiting salt/fluid. HE does feel SOB with exertion with extra fluid on, no orthopnea. 05/26/21: Has SOB when >5 Kg over dry weight, extra run last week at [facility] helped. Trying his best with fluid restriction. [...] extra run and we discussed going to [facility] tomorrow for UF only run and he [...] again today, may need extra run at [facility] if can't get down over next week. 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 06/10: Doing well overall, no new complaints, [...] Went to Urgent care -> ER in [place] yesterday,CT with R hydro but no obstructive [...] gastrointestinal bleeding 578.9 K92.89 Exam Respiratory - nl effort Cardiovascular Regular rate. Edema - Trace edema. wrapped now, improved edema Access - AVF intact with needles [...] 1/2 tablet by mouth once a day Protonix (pantoprazole) 40 mg tablet,delayed release (DR/EC) Take 1 tablet by mouth every morning one hour before meals Renvela (sevelamer carbonate) 800 mg tablet Take 1 tablet by mouth once a day with meals. with largest meal. Triphrocaps (b complex with c 20-folic acid) 1 mg capsule Take 1 capsule by mouth once a day Allergy List Allergen Reaction Reaction Severity Onset Date lisinopril Cough Medications reviewed and no changes were made. BUN mg/dL 48 (11/24/21) 38 (10/20/21) 41 (09/22/21) 55 (08/30/21) 52 (08/18/21) UREA NITROGEN (MG/DL) IN SER/PLAS - POST DIALYSIS mg/dL 13 (11/24/21) 11 (10/20/21) 12 (09/22/21) 16 (08/30/21) 17 (08/18/21) URR % 73 (9/7/22) 71 (10/20/21) 71 (09/22/21) 71 (08/30/21) 67 (08/18/21) spKt/V Gotch 1.64 (11/24/21) 1.55 (10/20/21) 1.53 (09/22/21) 1.39 (08/18/21) 1.42 (07/21/21) eKdrt/V 1.42 (11/24/21) 1.35 (10/20/21) 1.33 (09/22/21) 1.21 (08/18/21) 1.24 (07/21/21) spKt/V (Daugirdas II) 1.5600 (11/24/21) 1.4800 (10/20/21) 1.4700 (09/22/21) 1.4900 (08/30/21) 1.3400 (08/18/21) HEMOGLOBIN (G/DL) IN BLOOD g/dL 10.8 (12/01/21) 10.3 (11/24/21) 10.2 (11/17/21) 9.6 (11/10/21) 10.0 (11/03/21) PLATELETS 1000/mcL 179 (11/24/21) 184 (10/20/21) 250 (09/22/21) 101 (08/18/21) 183 (07/21/21) IRON SATURATION % 32 (08/18/21) 36 (07/21/21) 31 (06/23/21) 38 (05/26/21) 35 (05/19/21) FERRITIN ng/mL 357 (09/22/21) 640 (06/23/21) 640 (05/21/21) 857 (03/24/21) 837 (02/24/21) ALBUMIN (G/DL) g/dL 3.7 (11/24/21) 3.8 (10/20/21) 3.7 (09/22/21) Sodium mEq/L 137 (11/24/21) 135 (10/20/21) 133 (09/22/21) POTASSIUM (MMOL/L) IN SER/PLAS mEq/L 5.6 (11/24/21) 5.0 (10/20/21) 5.7 (09/29/21) BICARBONATE (CO2) mEq/L 28 (11/24/21) 26 (10/20/21) 26 (09/22/21) 25 OH VITAMIN D ng/mL 56.0 (09/22/21) 38.3 (03/24/21) 37.9 (09/23/20) BUN/CREATININE (MASS RATIO) IN SER/PLAS 9.1 (11/24/21) 7.3 (10/20/21) 7.7 (09/22/21) CALCIUM mg/dL 9.4 (11/24/21) 9.5 (10/20/21) 9.2 (09/22/21) Calcium Phos Product 39 (11/24/21) 28 (10/20/21) 36 (09/22/21) CALCIUM (MG/DL) CORRECTED FOR ALBUMIN IN SER/PLAS mg/dL 9.6 (11/24/21) 9.7 (10/20/21) 9.4 (09/22/21) PHOSPHATE (MG/DL) IN SER/PLAS mg/dL 4.2 (11/24/21) 2.9 (10/20/21) 3.9 (09/22/21) IPTH pg/mL 369 (11/24/21) 203 (10/27/21) 722 (09/22/21) Vascular Access Assessment: Type of access: [id number] Surgeon - Lary ANW 08/2021: [place] [facility] [place] of [place] completed Impression and Plan Stable dialysis Slowly challenging EDW Fluid gains improved Ernie Pompa MD [ Signed And locked electronically On 12/08/2021 at 10:44:28 AM ] Transcribed: Ernie Pompa ( 12/08/2021 ) documented in this encounter Plan of Treatment Not on filedocumented as of this encounter Visit Diagnoses Not on filedocumented in this encounter
--- OUTSIDE RECORDS SUMMARY | 2021-12-22 11:26 | XMS_ITS | Encounter Summary ---
:1945 Author Organization [place] Address [facility] [place] [address] Care Team Providers Name Role Phone Unavailable Primary Care Provider Unavailable Encounter Details Date Type Department Care Team Description 04/07/2019 Records - [facility] GERIATRIC SERVICES Laboratory OF [facility] [address] [place] [phone] [place] [phone] [id number] Social History Tobacco Use Types Packs/Day Years Used Date Never Assessed Sex Assigned at Date Recorded Not on file documented as of this encounter Plan of Treatment Not on filedocumented as of this encounter Procedures Procedure Name Priority Date/Time Associated Diagnosis Comme nts BASIC METABOLIC Routine 04/08/2019 7:45 AM Result s for this PANEL [facility]DEL procedure are i n the results section. CBC WITH PLATELETS Routine 04/08/2019 7:45 AM Res ults for this [facility]ISTS[facility]DEL procedure are i n the results section. documented in this encounter Results (ABNORMAL) Basic metabolic panel (04/08/2019 7:45 AM [facility]ISTS[facility] MODEL) [facility] Method Time Signature Sodium 137 136 - 145 04/08/2019 HEALTH mmol/L 10:[address] [facility]ORAT[facility] Potassium 5.2 (H) 3.5 - 5.0 04/08/2019 HEALTH mmol/L 10:[address] [facility] Chloride 102 98 - 107 04/08/2019 HEALTH mmol/L 10:[address] [facility] Carbon Dioxide 22 22 - 31 04/08/2019 HEALTH (CO2) mmol/L 10:[address] [facility] Anion Gap 13 5 - 18 04/08/2019 HEALTH mmol/L 10:[address] [facility] Glucose 209 (H) 70 - 125 04/08/2019 HEALTH mg/dL 10:[address] [facility] Calcium 10.3 8.5 - 10.5 04/08/2019 HEALTH mg/dL 10:[address] [facility] Urea Nitrogen 101 (H) 8 - 28 04/08/2019 HEALTH mg/dL 10:[address] [facility] Creatinine 3.66 (H) 0.70 - 04/08/2019 HEALTH 1.30 mg/dL 10:[address] [facility] GFR Estimate If 20 (L) >60 04/08/2019 HEALTH Black mL/min/1.7 10:[address] LABORATORY GFR Estimate 16 (L) >60 04/08/2019 HEALTH mL/min/1.7 10:[address] LABORATORY Specimen Anatomical Collection Method / Collection Time Recei annie Time (Source) Location / Volume Laterality Blood specimen STRUCTURE OF RIGHT Venipuncture / 04/08/2019 7:45 (specimen) UPPER LIMB / Unknown AM [facility] 10:22 AM [facility] Unknown Narrative [facility] - 04/08/2019 10:53 AM [facility] Fasting Glucose reference range is 70-99 mg/dL per [place] [employer] (ADA) maryan marrero. Alison Hollins LAB - BLOOD ORDERABLES Performing Organization Address City/State/ZIP Code Phon e Number [facility] [place] [id number] [place] [address] [place] [id number], [facility] (ABNORMAL) CBC with platelets (04/08/2019 7:45 AM [facility]ISTS[facility] MODEL) [facility] gist Method Time Signature WBC 5.2 4.0 - 11.0 04/08/2019 [facility] thou/uL 10:32 AM [facility] RBC Count 2.52 (L) 4.40 - 04/08/2019 HEALTH 6.20 10:32 AM [facility] LABORATORY Hemoglobin 7.9 (L) 14.0 - 04/08/2019 HEALTH 18.0 g/dL 10:32 AM [facility] Hematocrit 25.2 (L) 40.0 - 04/08/2019 HEALTH 54.0 % 10:32 AM [facility] MCV 100 80 - 100 04/08/2019 HEALTH fL 10:32 AM [facility] MCH 31.3 27.0 - 04/08/2019 HEALTH 34.0 pg 10:32 AM [facility] MCHC 31.3 (L) 32.0 - 04/08/2019 HEALTH 36.0 g/dL 10:32 AM [facility] RDW 19.4 (H) 11.0 - 04/08/2019 HEALTH 14.5 % 10:32 AM [facility] Platelet Count 140 140 - 440 04/08/2019 HEALTH [facility]/uL 10:32 AM [facility] Mean Platelet 10.4 8.5 - 12.5 04/08/2019 HEALTH Volume fL 10:32 AM [facility] Specimen Anatomical Collection Method / Collection Time Recei annie Time (Source) Location / Volume Laterality Blood specimen STRUCTURE OF RIGHT Venipuncture / 04/08/2019 7:45 (specimen) UPPER LIMB / Unknown AM [facility] 10:22 AM [facility] Unknown Alison Hollins LAB - BLOOD ORDERABLES Performing Organization Address City/State/ZIP Code Phon e Number [place] [address] [facility] [address] [facility] documented in this encounter Visit Diagnoses Not on filedocumented in this encounter
--- OUTSIDE RECORDS SUMMARY | 2021-12-22 11:26 | XMS_ITS | Encounter Summary ---
:1945 Author Organization [facility] Address [address] [place] [address] Care Team Providers Name Role Phone Unavailable Primary Care Provider Unavailable Encounter Details Date Type Department Care Team Description 11/03/2021 Orders Only [facility] Ernie Guzmán MD [address] [place] [address] [place], [place] [phone] (Wo rk) Social History Tobacco Use [...] 11/04/2021 Unless otherwise specified, test(s) performed at: [facility], [address] [place] [address], [place] [address] GAS REGULATOR REPAIRER: Alhaji Noguera M.D., Ph.D For any questions, please call customer service at FREQUENCY:OTHER Resulting Agency Comment Specimen source: Blood Ernie Pompa MD LAB BLOOD ORDERABLES Performing Organization Address City/State/ZIP Code Phon e Number [facility] documented in this encounter Visit Diagnoses Not on filedocumented in this encounter
--- OUTSIDE RECORDS SUMMARY | 2021-12-22 11:26 | XMS_ITS | Encounter Summary ---
:1945 Author Organization [facility] Address [address] [place] [address] Care Team Providers Name Role Phone Unavailable Primary Care Provider Unavailable Encounter Details Date Type Department Care Team Description 11/17/2021 Orders Only [facility] f Ernie Guzmán MD [address] [place] [address] [place], [place] [phone] (Wo rk) Social History Tobacco Use [...] 11/18/2021 Unless otherwise specified, test(s) performed at: [facility], [address] [place] [address], [place] [address] ANCHOR TACK PULLER: Alhaji Noguera M.D., Ph.D For any questions, please call customer service at FREQUENCY:OTHER Resulting Agency Comment Specimen source: Blood Ernie Pompa MD LAB BLOOD ORDERABLES Performing Organization Address City/State/ZIP Code Phon e Number [facility] documented in this encounter Visit Diagnoses Not on filedocumented in this encounter
--- OUTSIDE RECORDS SUMMARY | 2021-12-22 11:26 | XMS_ITS | Encounter Summary ---
:1945 Author Organization [facility] Address [address] [place] [address] Care Team Providers Name Role Phone Liban Leos Primary Care Provider Ernie Pompa MD Unavailable Reason for Visit Reason Comments Hypotension Auth/Cert Specialty Diagnoses / Procedures Referred By Contact Refer red To Contact Med Surg Diagnoses UGI bleed UGI bleed 5 Medical Surgical [address] [place], [place] [address] Phone: Fax: Referral ID Status Reason Start Date Expiration Date Visits Requ ested Visits Authorized [id number] 1 1 Encounter Details Date Type Department Care Team Description 10/08/2021 - Hospital Encounter [facility] Florentino Ragsdale MD [facility] [address] [place] [address] UGI bleed 10/11/2021 [place] [address] Medical Fadi Viveros, DO [address] [place] [address] Surgical Dallin Simons MD [facility] [address] [place] [address] [address] Burt MD [facility] [address] [place], [place] [id number] [place] [address] Social History Tobacco Use Types [...] daily fluticasone (FLONASE) 50 MCG/ACT nasal spray Iberia 1 spray in nostril daily fluticasone-salmeterol (ADVAIR [...] ulcer and??morbid obesity??who??presents to the ED from [facility] due to concerns of hematemesis and melanotic stool. He had just finished HD (took 1.2L) and presented to [facility] [facility] due to concerns of dizziness and hematemesis. ?? Work up at [place] [facility] showed hgb of 7.5 and soft pressures in the 100's. CT abd pelvis showed normal distal esophagus, stomach and normal liver. No symptoms of obstruction or mass. There were moderate ascites in the dependent abdomen. He received NS bolus (500cc) and 1 unit(s) PRBC and transferred to [facility] ED. Work up in our ED [...] is something he should revisit with his passenger representative. He does also have a history of [...] was: 35 Minutes Dallin Farah DO [facility] Hospitalist Clark Lentz [facility] [place] [address] 10/11/2021 documented in this encounter Medications at Time of Discharge Medication Sig Dispensed Refills Start Date End Date allopurinol (ZYLOPRIM) Take 100 mg by mouth 0 100 MG tablet daily atorvastatin (LIPITOR) Take 20 mg by mouth 0 11/19 20 MG tablet daily fluticasone (FLONASE) 50 Iberia 1 spray in 0 12/15 MCG/ACT nasal [...] walker and gait belt, denies pain, GREY, [id number] on RA. VSS, continues to be anuric. [...] checked every 4 hours. Outpatient Dialysis at [facility] Post treatment report given to Delilah [...] as tolerate. No heparin. Plan discussed with department mgr and patient at the bedside. Interval History: [...] and imaging. Frederick Alcaraz MD [facility] - Nephrology Office phone :[phone] Pager: [phone] Jovita Blackmon RN - 10/11/2021 7:05 AM [...] morbid obesity??who presents to the ED from [place] due to concerns of hematemesis and melanotic stool. He had just finished HD (took 1.2L) and presented to [facility] due to concerns of dizziness and hematemesis. ?? Work up at [place] [facility] showed hgb of 7.5 and soft pressures in the 100's. CT abd pelvis showed normal distal esophagus, stomach and normal liver. No symptoms of obstruction or mass. There were moderate ascites in the dependent abdomen. He received NS bolus (500cc) and 1 unit(s) PRBC and transferred to [facility] ED. Work up in our ED [...] past 24 hour(s)). Dallin Farah DO [facility] Hospitalist [address] [facility] [place] [address] 10/10/2021 Terry Wolfe MD - 10/10/2021 9:14 [...] mcg/hr (10/09/21 1126) Current active medications and JAVA PROJECT MANAGER medications reviewed, see medication list for [...] results for input(s): MAG in the last 93146 hours. No results for input(s): PHOS in the last 45324 hours. Recent Labs Lab Test 10/10/21 0722 [...] morbid obesity??who presents to the ED from [place] due to concerns of hematemesis and melanotic stool. He had just finished HD (took 1.2L) and presented to [facility] due to concerns of dizziness and hematemesis. ?? Work up at [facility] [facility] showed hgb of 7.5 and soft pressures in the 100's. CT abd pelvis showed normal distal esophagus, stomach and normal liver. No symptoms of obstruction or mass. There were moderate ascites in the dependent abdomen. He received NS bolus (500cc) and 1 unit(s) PRBC and transferred to [facility] ED. Work up in our ED [...] past 24 hour(s)). Dallin Farah DO [facility] Hospitalist [address]ent[address] [facility] [place] [place] [address] 10/09/2021 documented in this encounter H&P Notes Layne Rossi PA-C - 10/08/2021 9:27 PM CDT [facility] Admission History and Physical Examination NAME: [...] morbid obesity??who presents to the ED from [facility] due to concerns of hematemesis and melanotic stool. He had just finished HD (took 1.2L) and presented to [facility] [facility] due to concerns of dizziness and hematemesis. Work up at [place] ED showed hgb of 7.5 and soft bps in the 100's. CT abd pelvis showed normal distal esophagus, stomach and normal liver. No sxs of obstruction or mass. There were moderate ascites in the dependent abd. He received NS bolus (500cc) and 1u PRBC and transferred to [facility] ED. Work up in our ED [...] morbid obesity??who presents to the ED from [facility] due to concerns of hematemesis and melanotic stool. He had just finished HD (took 1.2L) and presented to [facility] due to concerns of dizziness and hematemesis. Work up at [facility] showed hgb of 7.5 and soft bps in the 100's. CT abd pelvis showed normal distal esophagus, stomach and normal liver. No sxs of obstruction or mass. There were moderate ascites in the dependent abd. He received NS bolus (500cc) and 1u PRBC and transferred to [facility] ED. Work up in our ED [...] 50 MCG/ACT nasal spray Yes Yes Sig: Iberia 1 spray in nostril daily fluticasone-salmeterol (ADVAIR [...] -- 16 AST -- [address] MARTIN-C [facility] Medicine October 08, 2021 Securely message with the [employer] Console (learn more here) Text page via [employer] Paging/Directory Associated attestation - Fadi Viveros DO [...] 11:33 AM CDTAssociated Order(s): GASTROENTEROLOGY IP CONSULT [facility] Gastroenterology Consultation Joce Zamudio MD Patient [...] He had an EGD June 28 at [facility]. Preoperative indication was Brannon's surveillance. 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 Biopsies were negative for Brannon's but did show esophagitis. Stomach showed diffuse gastritis with old blood consistent with erosive gastritis. Moderate duodenitis was noted. This was confirmed on biopsy and suspected be due to nonsteroidals likely aspirin. He reports an EGD in the remote past at [facility] that showed ulcers. He has ascites [...] Medication Sig Last Dose Taking? Auth Provider Tissue Packer End Date allopurinol (ZYLOPRIM) 100 MG tablet [...] Yes fluticasone (FLONASE) 50 MCG/ACT nasal spray [place]beria 1 spray in nostril daily 10/07/2021 at [...] AST 15 ALKPHOS 116 Joce Zamudio MD, [facility] [phone] Terry Wolfe MD - 10/09/2021 10:29 AM CDT Consult Date: 10/09/2021 REQUESTING PHYSICIAN: Dallin Farah MD. FENCE MACHINE OPERATOR: Dallas Wolfe MD. REASON FOR CONSULTATION: [...] lives alone [place] a [place]. REVIEW OF SYSTEMS: He feels relatively well [...] MD MT: ETREMT Name: JONATAN MEJIA. Account: [id number] : 1945 Consult Date: 10/09/2021 Document: [id number] Terry Wolfe MD - 10/09/2021 10:24 AM CDTAssociated Order(s): NEPHROLOGY IP CONSULT See dictation. Confirmation # [id number]. documented in this encounter ED Notes Essence Osuna RN - 10/09/2021 1:16 PM CDT Pt received one unit of RBC this morning, tolerated well, no transfusion reaction. Stepdaughter Melanie jin, aware of patient transfer to [facility]. Advanced to clear liquid diet, tolerating well. Pt will be NPO at midnight for EGD on 10/10. Kaylee Trejo RN - 10/08/2021 11:05 PM CDT [facility] ED Nurse Handoff Report Jonatan Mejia [...] X 1. Lift room needed:No. Bariatric: No Insole Beveler Needed: No Isolation: No. Infection: Not Applicable. [...] Brianna, , and informed her of admission [facility] boarding status. She will visit tomorrow [...] - 10/08/2021 6:30 PM CDT sent from [facility]. Dialysis patient with hypotension today. Given 500ml and 1 unit PRBC at [facility]. Florentino Ragsdale MD - 10/08/2021 6:23 PM [...] RN Pharmacy-Admission Medication History - Erlin Dodd, [facility] - 10/08/2021 10:14 PM CDT Admission medication history interview status for this patient is complete. See [facility] admission navigator for allergy information, prior to admission medications and immunization status. Medication history interview done, indicate source(s): Patient Medication history resources (including written lists, pill bottles, clinic record): Janice Pillbox Pharmacy: [facility] - [place], [place] - [id number] [facility] [phone] Changes made to JAVA PROJECT MANAGER medication list: Added: ALL Actions taken [...] Yes fluticasone (FLONASE) 50 MCG/ACT nasal spray Iberia 1 spray in nostril daily 10/07/2021 at [...] HEMODIALYSIS SINGLE TREATMENT Routine 10/11/2021 SETUP ([facility]) 4:33 PM CDT HEMODIALYSIS DIALYZER ([facility]) Routine 10/11/2021 2:28 PM CDT IP TERMINATION [...] e Number [facility] CORE/PROT/ENDO [facility] [place] [address] Core/Prot/Endo [address] [facility] [address] Building, Room 3-580 (ABNORMAL) CBC with platelets (10/11/2021 6:36 AM CDT) [facility] Method Time Signature WBC Count 7.1 4.0 [...] City/State/ZIP Code Phon [place] [address] Care Lab [address] Lab (1st floor, no room number) (ABNORMAL) Basic metabolic panel (10/11/2021 6:36 AM CDT) [facility] [...] and gender (Brigette et al., NEJM, DOI: 10.1056/[id number]) Specimen Anatomical Collection Method / Collection Time Recei annie Time (Source) Location / Volume Laterality Blood STRUCTURE OF RIGHT Venipuncture / 10/11/2021 6:36 2 07/2021 6:42 HAND / Unknown Unknown AM CDT AM CDT Dallin Farah DO LAB - BLOOD ORDERABLES Performing Organization Address City/State/ZIP Code [place] [address] Care Lab [address] Lab (1st floor, no room number) [...] LAB - BEAKER POCT Performing Organization Address City/[facility]/ZIP Code Phon e Number [place] [address] Care Lab [address] Lab (1st floor, no room number) Surgical Pathology Exam (10/10/2021 8:58 AM CDT) Component Value Ref Test Analysis Performed Pathologis t Range Method Time At Signature Case Report Surgical Pathology Report ? Case: [id number] ? Authorizing Provider: ??Carb allo, Joce ? Collected: ? 10/10/2021 08:58 AM ? 2 8:22 AM LABORA TORY ? MD Edgard ? CDT [facility] Received: ?10/10/2021 09:42 AM ? [...] entirely submitted in 1 cassette. ([facility]) Microscopic Microscopic examination Description was performed. [...] Address City/State/ZIP Code [place] [address] Care Lab [address] [facility] Lab (1st floor, no room number) UPPER GI ENDOSCOPY (10/10/2021 8:18 AM CDT) Component Value Ref Test Analysis Performed At [facility] Range Method Time Signature [facility] RADIOLOGY Endoscopy RESULTS Patient Name: Jonatan Mejia ? Procedure Date: 09/18 8:18 AM ? Account Num flako: [id number] Date of : 1945 ?Admit Type: Inp [...] Model ?# [id number], Endora # 205, SN #[id number] was ?introduced through the mouth, and advanced [...] Note Initiated On: 10/10/2021 8:18 AM MRN: ?[id number] Procedure Date: ? 10/10/2021 8:18:14 AM Total [...] CBC with platelets (10/10/2021 7:22 AM CDT) [facility] Method Time Signature WBC Count 7.2 4.0 [...] City/State/ZIP Code [place] [address] Care Lab [address] Lab (1st floor, no room number) (ABNORMAL) Basic metabolic panel (10/10/2021 7:22 AM CDT) [facility] Method Time Signature Sodium 132 (L) 133 [...] and gender (Brigette et al., NEJM, DOI: 10.1056/[id number]) Specimen Anatomical Collection Method / Collection Time Recei annie Time (Source) Location / Volume Laterality Blood STRUCTURE OF RIGHT Venipuncture / 10/10/2021 7:22 07/2 06/2021 7:31 UPPER LIMB / Unknown AM CDT AM CDT Unknown Dallin Farah DO LAB - BLOOD ORDERABLES Performing Organization Address City/State/ZIP Code [place] [address] Care Lab [address] [...] LAB - BLOOD ORDERABLES Performing Organization Address City/[facility]/ZIP [place] [address] Care Lab [address] Lab (1st floor, no room number) [...] LAB - BLOOD ORDERABLES Performing Organization Address City/[facility]/ZIP [place] [address] Care Lab [address] Lab (1st floor, no room number) [...] Organization Address City/State/Z[place] [address] Care Lab [address] Lab (1st floor, no room number) [...] City/State/ZIP Code [place] [address] Care Lab [address] Lab (1st floor, no room number) (ABNORMAL) Basic metabolic panel (10/09/2021 9:12 AM CDT) [facility] [...] CDT Creatinine 3.52 (H) 0.66 - 10/09/2021 LABORATORY 1.25 mg/dL 9:56 AM CDT Calcium [...] and gender (Brigette et al., NEJ, DOI: 10.1056/[id number]) Specimen Anatomical Collection Method / Collection Time Recei annie Time (Source) Location / Volume Laterality Blood STRUCTURE OF RIGHT Venipuncture / 10/09/2021 9:12 07/2 05/2021 9:34 HAND / Unknown Unknown AM CDT AM CDT Layne Rossi PA-C LAB - BLOOD ORDERABLES Performing Organization Address City/State/ZIP Code [place] [address] Care Lab [address] Lab (1st floor, no room number) Prepare red blood cells (unit) (10/09/2021 6:52 AM CDT) [facility] gist Method Time Signature CROSSMATCH Compatible RH BLOOD BANK UNIT ABO/RH O Neg RH BLOOD BANK Unit Number [id number] RH BLOOD BANK Unit Status Transfused RH BLOOD BANK Blood Red Blood Cells RH BLOOD Component Type BANK Product Code [id number] RH BLOOD BANK CODING SYSTEM [id number] RH BLOOD BANK UNIT TYPE ISBT 9500 RH BLOOD BANK ISSUE DATE AND [id number] RH BLOOD TIME BANK Specimen (Source) Anatomical Collection Method Collection Time Re ceived Time Location / / Volume Laterality 10/09/2021 6:52 AM CDT Dallin Simons MD BLOOD BANK PRODUCT ORDERABLE S Performing Organization Address City/State/ZIP Code Phon e Number RH BLOOD BANK [address] [place] [address] Transfuse red blood cells (unit) No special requirements (10/09/2021 2:38 AM CDT) Layne Ray Rossi PA-C BLOOD TRANSFUSION ORDERABLES Transfuse red blood cells (unit), 1 Units No special requirements (10/09/2021 2:38 AM CDT) Layne Ray Rossi PA-C BLOOD TRANSFUSION ORDERABLES EKG 12-lead, tracing only (10/09/2021 12:52 AM CDT) Component Value Ref Range Test Analysis [facility] Method Time At Signature Systolic Blood mmHg RADIOLOGY Pressure RESULTS Diastolic Blood mmHg RADIOLOGY Pressure RESULTS Ventricular Rate 70 BPM RADIOLOGY RESULTS Atrial Rate 39 BPM RADIOLOGY RESULTS MS Interval ms RADIOLOGY RESULTS QRS Duration 126 ms RADIOLOGY RESULTS QT 442 ms RADIOLOGY RESULTS QTc 477 ms RADIOLOGY RESULTS P [place] degrees RADIOLOGY RESULTS R AXIS 107 degrees RADIOLOGY RESULTS T [place] 33 degrees RADIOLOGY RESULTS Interpretation Atrial fibrillation [...] PA-C ECG ORDERABLES Performing Organization Address City/State/ZIP [facility] Phon e Number RADIOLOGY RESULTS Prepare red blood cells (unit) (10/08/2021 11:46 PM CDT) [facility] gist Method Time Signature CROSSMATCH Compatible RH BLOOD BANK UNIT ABO/RH O Neg RH BLOOD BANK Unit Number [id number] RH BLOOD BANK Unit Status Transfused RH BLOOD BANK Blood Red Blood Cells RH BLOOD Component Type BANK Product Code [id number] RH BLOOD BANK CODING SYSTEM [id number] RH BLOOD BANK UNIT TYPE ISBT 9500 RH BLOOD BANK ISSUE DATE AND [id number] RH BLOOD TIME BANK Specimen (Source) Anatomical Collection Method Collection Time Re ceived Time Location / / Volume Laterality 10/08/2021 11:46 PM CDT Layne Rossi PA-C BLOOD BANK PRODUCT ORDERABLE S Performing Organization Address City/State/ZIP Code Phon e Number RH BLOOD BANK [address] [place] [address] (ABNORMAL) Hemoglobin (10/08/2021 10:47 PM CDT) athologist [...] City/State/ZIP Code [place] [address] Care Lab [address] [facility] Lab (1st floor, no room number) [...] Address City/State/ZIP Code [place] [address] Care Lab [address] Lab (1st floor, no room number) [...] the Xpert Xpress SARS-CoV-2 Assay on the [employer]. A dditional information about this [...] COVID-19. This test was validated by the [facility]. This laboratory is certified under the Clinical Laboratory Improvement Amendments of 1988 (CLIA-88) as qualified to perform high complexity laboratory testing. Florentino Ragsdale MD LAB - MICRO GENERAL ORDERABL ES Performing Organization Address City/State/ZIP Code [place] [address] Care Lab [address] Lab (1st floor, no room number) [...] Address City/State/ZIP Code [place] [address] Care Lab [address] Lab (1st floor, no room number) [...] Address City/State/ZIP Code [place] [address] Care Lab [address] Lab (1st floor, no room number) [...] LAB - BLOOD ORDERABLES Performing Organization Address City/[facility]/ZIP Code Ph[place] [phone] Care Lab [address] Lab (1st floor, no room number) Adult Type and Screen (10/08/2021 7:02 PM CDT) [facility] [employer] Method Time Signature ABO/RH(D) O NEG 10/08/2021 RH BLOOD 6:39 PM CDT BANK Antibody Negative Negative 10/08/2021 RH BLOOD Screen 6:39 PM CDT BANK SPECIMEN [id number] 10/08/2021 RH BLOOD EXPIRATION 6:39 PM CDT BANK DATE Specimen Anatomical Collection Method / Collection Time Recei annie Time (Source) Location / Volume Laterality Blood STRUCTURE OF RIGHT Venipuncture / 10/08/2021 7:02 09/18 7:10 UPPER LIMB / Unknown PM CDT PM CDT Unknown Florentino Ragsdale MD LAB - BLOOD BANK TEST ORDER Performing Organization Address [facility]/ZIP Code Phon e Number RH BLOOD BANK [address] [place] [address] (ABNORMAL) Comprehensive metabolic panel (10/08/2021 7:02 PM CDT) [employer] Method Time Signature Sodium 136 133 - [...] CDT AST 15 0 - 45 10/08/2021 RH LABORATORY U/L 7:39 PM CDT ALT 16 0 - 70 10/08/2021 RH LABORATORY U/L 7:39 PM CDT Protein Total [...] and gender (Brigette et al., NEJM, DOI: 10.1056/[id number]) Specimen Anatomical Collection Method / Collection Time Recei annie Time (Source) Location / Volume Laterality Blood STRUCTURE OF RIGHT Venipuncture / 10/08/2021 7:02 09/18 7:10 UPPER LIMB / Unknown PM CDT PM CDT Unknown Florentino Ragsdale MD LAB - BLOOD ORDERABLES Performing Organization Address City/State/ZIP Code [place] [address] Care Lab [address] [facility] Lab (1st floor, no room number) documented [...] (ROCEPHIN) 2 g vial to attach to New Bag 8:34 PM CDT 2 g NS [...] MIN PRN, op ioid reversal, Starting on [place] 10/10/21 at 1011, Administer intravenous route when [...] 2 MIN PRN, opioid reversal, Starting on [place] 10/10/21 at 1011, Administer intramuscular if an [...] BOLUS (COMPLETED) 1529 (New Bag - Provider: Lolyl Xavier, RN) Hemodialysis Machine, 300 mL, ONCE, On M [...] 0816 (Given - Provider: Melanie Rodriguez RN) 20 mg, Oral, DAILY, First dose on [...] Medication not available)1854 (Given - Provider: Aracelis Goldstein RN) 0639 (Given - Provider: Jovita Blackmon, OVI)1233 (Given - Provider: Melanie Rodriguez RN)1838 (Given - Provider: Aracelis Goldstein RN) 1 g, Oral, 3 TIMES DAILY BEFORE [...] RN)0629 (New Bag - Provider: Calista Recio OVI)0900 (Rate/Dose Verify - Provider: Essence Osuna, RN)1126 [...] MIN PRN, op ioid reversal, Starting on [place] 10/10/21 at 1011, Administer intravenous route when [...] 2 MIN PRN, opioid reversal, Starting on [place] 10/10/21 at 1011, Administer intramuscular if an [...] 0143 documented in this encounter Care Teams Dial Screw Assembler Relationship Specialty Start Date End Date Liban Leos PCP - General Family Medicine 10/08/21 [address] [place] [address] Ernie Pompa MD MD Nephrology 10/08/21 [address] [place] [address] documented as of this encounter
--- OUTSIDE RECORDS SUMMARY | 2021-12-22 11:27 | XMS_ITS | Encounter Summary ---
:1945 Author Organization [facility] Address [address] [place] [address] Care Team Providers Name Role Phone Unavailable Primary Care Provider Unavailable Encounter Details Date Type Department Care Team Description 09/29/2021 Treatment [facility] f Ernie Guzmán MD [address] [place] [address] [place], [place] [phone] (Wo rk) Social History Tobacco Use Types Packs/Day Years Used Date Smoking Tobacco: Unknown Comments: Smoking History Info:Patient n ot screened Sex Assigned at Date Recorded Not on file documented as of this encounter Miscellaneous Notes Dialysis Note - Ernie Pompa MD - 09/29/2021 10:30 AM CDT Date: Sep 29, 2021 Patient Name: Shaun Ocampo : 1945 Chart #: [id number] Sex: M This patient was personally seen [...] AM ) BP (sit): 109/45 AP(-) / URGENT CARE PHYSICIAN ASSISTANT: 168/138 Pulse: 57 Chairside data as of [...] 08/27/2021 05/28/2021 04/23/2021 Access Flow [id number] 1242 Treatment Medication Orders Medication Sig Start Date [...] mcg IVP Every 2 weeks 09/29/2021 09/28/2022 CHARTER BOAT CAPTAIN: Ernie Pompa MD LOCATION: [phone] SCHEDULE: -- 2nd Shift EDW: kg. DIALYZER: [...] and do periodic extra UF treatments at [facility] rather than risk more hypotension post-tx with use of midodrine and additional UF during treatments. He has fistulagram last week, went well and access working well since. 08/11: Continues to have problems with fluid gains. we have spent considerable time discussing this, he is trying to work on this but can't seem to avoid large gains. Will go to [facility] for UF tomorrow, needs extra treatments every 2 weeks it looks like to maintain EDW. He does get SOB when >5K over dry weight in particular. 07/21/21: Continues to struggle with fluid gains, extra UF run scheduled tomorrow at [facility]. He does feel more SOB when fluid overloaded. No new symptoms otherwise, he is enjoying the nicer weather which allows him to do more activity and not sit at home and drink fluids which he thinks will help with IDWG's. 07/14/21: Continues to have high gains, unfortunately [facility] without staff to open tomorrow for extra [...] improving. Fluid gains continue to be high, [facility] not open on this week, says he will do his best withlimiting salt/fluid. HE does feel SOB with exertion with extra fluid on, no orthopnea. 05/26/21: Has SOB when >5 Kg over dry weight, extra run last week at [facility] helped. Trying his best with fluid restriction. [...] extra run and we discussed going to [facility] tomorrow for UF only run and he [...] again today, may need extra run at [facility] if can't get down over next week. 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 06/10: Doing well overall, no new complaints, [...] Went to Urgent care -> ER in [place] yesterday,CT with R hydro but no obstructive [...] He had infiltration last week, dialyzed at [facility] on Sat and went well, [...] prescription. Vascular Access Assessment Type of access: [id number]/2019 Surgeon - Lary GARDNER 08/2021: fistulagram at [facility] with angioplasty of stenosis completed Anemia Assessment [...] at goal. Intact PTH is above goal. Assistant Professor Nurse Education will adjust binders and vitamin D per [...] remain high Extra UF run tomorrow at [facility] Transplant Status: Patient is not a candidate. Weight, co-morbidities, age Resuscitation Status Stable dialysis, no changes to prescription Extra UF run at [facility] tomorrow Ongoing attempts at lower IDWG's Discussed [...]
--- OUTSIDE RECORDS SUMMARY | 2021-12-22 11:27 | XMS_ITS | Encounter Summary ---
:1945 Author Organization [facility] Address [address] [place] [address] Care Team Providers Name Role Phone Unavailable Primary Care Provider Unavailable Encounter Details Date Type Department Care Team Description 10/20/2021 Orders Only [facility] f Ernie Guzmán MD [phone] [place] [address] [place], [place] [phone] (Wo rk) Social History Tobacco Use [...] Performing Organization Address City/[facility]/ZIP Code Phon e Number APS SPECTRA [facility] POST CHEMISTRY (10/20/2021) athologist Signature BUN Post 11 6 - 19 APS SPECTRA Dialysis mg/dL [facility] Specimen (Source) Anatomical Collection Method Collection Time Re ceived Time Location / / Volume Laterality 10/20/2021 10/21/2021 3:38 AM CDT Narrative APS SPECTRA [facility] - 10/21/2021 Unless otherwise specified, test(s) performed at: [facility], [address] [place] [address], [place] [address] DUMBWAITER OPERATOR: Alhaji Noguera M.D., Ph.D For any questions, please call customer service at FREQUENCY:MONTHLY Resulting Agency Comment Specimen source: Plasma Ernie Pompa MD LAB BLOOD ORDERABLES Performing Organization Address City/State/ZIP Code Phon e Number APS SPECTRA [facility] (ABNORMAL) Spectrae Chemistry (10/20/2021) [facility] gist Method Time Signature BUN 38 [...] 10/21/2021 Unless otherwise specified, test(s) performed at: [facility], [address] [place] [address], [place] [address] DUMBWAITER OPERATOR: Alhaji Noguera M.D., Ph.D For any [...] 10/21/2021 Unless otherwise specified, test(s) performed at: [facility], [address] [place] [address], [place] [address] DUMBWAITER OPERATOR: Alhaji Noguera M.D., Ph.D For any questions, please call customer service at FREQUENCY:MONTHLY Resulting Agency Comment Specimen source: Blood Ernie Pompa MD LAB BLOOD ORDERABLES Performing Organization Address [facility] Phon e Number APS SPECTRA [facility] IMMUNO CHEMISTRY (10/20/2021) P athologist Signature Hep B Surface Negative Negative APS SPECTRA Ag [facility] Specimen (Source) Anatomical Collection Method Collection Time Re ceived Time Location / / Volume Laterality 10/20/2021 10/21/2021 3:50 AM CDT Narrative APS SPECTRA [facility] - 10/21/2021 Unless otherwise specified, test(s) performed at: [facility], [address] [place] [address], [place] [address] DUMBWAITER OPERATOR: Alhaji Noguera M.D., Ph.D For any questions, please call customer service at FREQUENCY:MONTHLY Resulting Agency Comment Specimen source: Plasma Ernie Pompa MD LAB BLOOD ORDERABLES Performing Organization Address [facility]/ZIP Code Phon e Number APS SPECTRA [facility] documented in this encounter Visit Diagnoses Not on filedocumented in this encounter
--- OUTSIDE RECORDS SUMMARY | 2021-12-22 11:27 | XMS_ITS | Encounter Summary ---
:1945 Author Organization [facility] Address [address] [place] [address] Care Team Providers Name Role Phone Unavailable Primary Care Provider Unavailable Encounter Details Date Type Department Care Team Description 09/22/2021 Orders Only [facility] f Ernie Guzmán MD [phone] [place] [address] [place], [place] [phone] (Wo rk) Social History Tobacco Use [...] 09/24/2021 Unless otherwise specified, test(s) performed at: [facility], [address] [place] [address], [place] [address] SUPERVISOR BOAT OUTFITTING: Alhaji Noguera M.D., Ph.D For any questions, please call customer service at FREQUENCY:MONTHLY Resulting Agency Comment Specimen source: Plasma Ernie Pompa MD LAB BLOOD ORDERABLES Performing Organization Address City/[facility]/ZIP Code Phon e Number APS SPECTRA [...] APS SPECTRA [facility] (ABNORMAL) Spectrae Chemistry (09/22/2021) [facility] gist Method Time Signature BUN 41 [...] 09/24/2021 Unless otherwise specified, test(s) performed at: [facility], [address] [place] [address], [place] [address] SUPERVISOR BOAT OUTFITTING: Alhaji Noguera M.D., Ph.D For any questions, please call customer service at FREQUENCY:MONTHLY Resulting Agency Comment Specimen source: Serum Ernie Pompa MD LAB BLOOD ORDERABLES Performing Organization Address [facility] Phon e Number APS SPECTRA [facility] POST CHEMISTRY (09/22/2021) P athologist Signature BUN Post 12 6 - 19 APS SPECTRA Dialysis mg/dL [facility] Specimen (Source) Anatomical Collection Method Collection Time Re ceived Time Location / / Volume Laterality 09/22/2021 09/24/2021 4:03 PM CDT Narrative APS SPECTRA [facility] - 09/24/2021 Unless otherwise specified, test(s) performed at: [facility], [address] [facility] [place] [place] [address] SUPERVISOR BOAT OUTFITTING: Alhaji Noguera M.D., Ph.D For any questions, please call customer service at FREQUENCY:MONTHLY Resulting Agency Comment Specimen source: Plasma Ernie Pompa MD LAB BLOOD ORDERABLES Performing Organization Address [facility] Phon e Number APS [...] 09/24/2021 Unless otherwise specified, test(s) performed at: [facility], [address] [facility] [place] [place] [address] SUPERVISOR BOAT OUTFITTING: Alhaji Noguera M.D., Ph.D For any questions, [...] City/[facility]/ZIP Code Phon e Number APS SPECTRA [facility] (ABNORMAL) Spectrae Chemistry (09/22/2021) P athologist Signature PTH 722 (H) 16 - 80 APS SPECTRA pg/mL [facility] Specimen (Source) Anatomical Collection Method Collection Time Re ceived Time Location / / Volume Laterality 09/22/2021 09/24/2021 2:25 PM CDT Narrative APS SPECTRA [facility] - 09/24/2021 Unless otherwise specified, test(s) performed at: [facility], [address] [facility] [place] [address] SUPERVISOR BOAT OUTFITTING: Alhaji Noguera M.D., Ph.D For any questions, please call customer service at FREQUENCY:MONTHLY Resulting Agency Comment Specimen source: Plasma Ernie Pompa MD LAB BLOOD ORDERABLES Performing Organization Address City/[facility] Phon e Number APS SPECTRA [facility] documented in this encounter Visit Diagnoses Not on filedocumented in this encounter
--- OUTSIDE RECORDS SUMMARY | 2021-12-22 11:27 | XMS_ITS | Encounter Summary ---
:1945 Author Organization [facility] Address [address] [place] [address] Care Team Providers Name Role Phone Unavailable Primary Care Provider Unavailable Encounter Details Date Type Department Care Team Description 09/29/2021 Orders Only [facility] f Ernie Guzmán MD [phone] [place] [address] [place], [place] [phone] (Wo rk) Social History Tobacco Use [...] 09/30/2021 Unless otherwise specified, test(s) performed at: [facility], [address] [place] [address], [place] [address] WAX PATTERN ASSEMBLER: Alhaji Noguera M.D., Ph.D For any questions, [...] 09/30/2021 Unless otherwise specified, test(s) performed at: [facility] [employer], [address] [place], [place] [address]fr[place]isca [place] [address] WAX PATTERN ASSEMBLER: Alhaji Noguera M.D., Ph.D For any questions, please call customer service at FREQUENCY:OTHER Resulting Agency Comment Specimen source: Blood Ernie Pompa MD LAB BLOOD ORDERABLES Performing Organization Address City/[facility] Code Phon e Number APS SPECTRA [facility] documented in this encounter Visit Diagnoses Not on filedocumented in this encounter
--- OUTSIDE RECORDS SUMMARY | 2021-12-22 11:27 | XMS_ITS | Encounter Summary ---
:1945 Author Organization [facility] Address [address] [place] [address] Care Team Providers Name Role Phone Unavailable Primary Care Provider Unavailable Encounter Details Date Type Department Care Team Description 08/11/2021 Treatment [facility] f Ernie Guzmán MD [address] [place] [address] [place], [place] [phone] (Wo rk) Social History Tobacco Use Types Packs/Day Years Used Date Smoking Tobacco: Unknown Comments: Smoking History Info:Patient n ot screened Sex Assigned at Date Recorded Not on file documented as of this encounter Miscellaneous Notes Dialysis Note - Ernie Pompa MD - 08/11/2021 10:15 AM CDT Date: August 11, 2021 Patient Name: Shaun Ocampo : 1945 Chart #: [id number] Sex: M This patient was personally seen [...] AM ) BP (sit): 97/38 AP(-) / SAP DATA ANALYST: 177/134 Pulse: 67 Chairside data as [...] 50 mg IVP 1X Week 07/26/2021 07/25/2022 MANAGER MANUFACTURING: Ernie Pompa MD LOCATION: [phone] SCHEDULE: -- 2nd Shift ACCESS: EDW: kg. DIALYZER: HD DURATION: NEEDLE SIZE: ANTICOAG: BATH: QB: ml/min QD: ml/min Subjective Tolerating dialysis well. 08/11: Continues to have problems with fluid gains. we have spent considerable time discussing this, he is trying to work on this but can't seem to avoid large gains. Will go to [place] for UF tomorrow, needs extra treatments every 2 weeks it looks like to maintain EDW. He does get SOB when >5K over dry weight in particular. 07/21/21: Continues to struggle with fluid gains, extra UF run scheduled tomorrow at [place]. He does feel more SOB when fluid overloaded. No new symptoms otherwise, he is enjoying the nicer weather which allows him to do more activity and not sit at home and drink fluids which he thinks will help with IDWG's. 07/14/21: Continues to have high gains, unfortunately [facility] without staff to open tomorrow for extra [...] improving. Fluid gains continue to be high, [facility] not open on this week, says he will do his best withlimiting salt/fluid. HE does feel SOB with exertion with extra fluid on, no orthopnea. 05/26/21: Has SOB when >5 Kg over dry weight, extra run last week at [place] helped. Trying his best with fluid restriction. [...] extra run and we discussed going to [place] tomorrow for UF only run and he [...] again today, may need extra run at [place] if can't get down over next week. [...] ureteral ?tumor early next month in [place]. 06/10: Doing well overall, no new complaints, [...] Went to Urgent care -> ER in [place] yesterday,CT with R hydro but no obstructive [...] He had infiltration last week, dialyzed at [facility] on Sat and went well, access [...] (06/23/21) Vascular Access Assessment: Type of access: [id number] Surgeon - Lary GARDNER Access working well Impression and Plan Stable dialysis overall, no changes to prescription made Parsabiv to continue, calcitriol increase as able with Ca lower on this to get PTH to goal but is improving and phos is controlled Extra UF run tomorrow in [place], ongoing extra UF runs will likely be necessary with inability toget to EDW consistently Ernie Pompa MD [ Signed And locked electronically On 08/11/2021 at 10:17:39 AM ] Transcribed: Ernie Pompa ( 08/11/2021 ) documented in this encounter Plan of Treatment Not on filedocumented as of this encounter Visit Diagnoses Not on filedocumented in this encounter
--- OUTSIDE RECORDS SUMMARY | 2021-12-22 11:27 | XMS_ITS | Encounter Summary ---
:1945 Author Organization [facility] Address [address] [place] [address] Care Team Providers Name Role Phone Unavailable Primary Care Provider Unavailable Encounter Details Date Type Department Care Team Description 10/27/2021 Treatment [facility] f Ernie Guzmán MD [address] [place] [address] [place], [place] [phone] (Wo rk) Social History Tobacco Use Types Packs/Day Years Used Date Smoking Tobacco: Unknown Comments: Smoking History Info:Patient n ot screened Sex Assigned at Date Recorded Not on file documented as of this encounter Miscellaneous Notes Dialysis Note - Ernie Pompa MD - 10/27/2021 10:07 AM CDT Date: Oct 27, 2021 Patient Name: Shaun Ocampo : 1945 Chart #: [id number] Sex: M This patient was personally seen [...] AM ) BP (sit): 99/43 AP(-) / TALKING BOOKS LIBRARY CLERK: 176/154 Pulse: 62 Chairside data as of [...] Values 08/27/2021 05/28/2021 04/23/2021 Access Flow [id number] 1240 Treatment Medication Orders Medication Sig Start [...] mcg IVP Every 2 weeks 10/27/2021 10/26/2022 HIGH SCHOOL COMBINATION TEACHER: Ernie Pompa MD LOCATION: [place] [phone] SCHEDULE: -W- 2nd Shift EDW: kg. DIALYZER: HD DURATION: NEEDLE SIZE: ANTICOAG: BATH: QB: ml/min QD: ml/min Subjective Tolerating dialysis well. 10/27/21: He is doing much better after extra UF run last week at [facility]. BP adequate, challengingEDW today. His breathing is improved. Also went to [facility] care clinic at [facility] and they dressedwounds and he has [...] and do periodic extra UF treatments at [facility] rather than risk more hypotension post-tx with use of midodrine and additional UF during treatments. He has fistulagram last week, went well and access working well since. 08/11: Continues to have problems with fluid gains. we have spent considerable time discussing this, he is trying to work on this but can't seem to avoid large gains. Will go to [place] for UF tomorrow, needs extra treatments every 2 weeks it looks like to maintain EDW. He does get SOB when >5K over dry weight in particular. 07/21/21: Continues to struggle with fluid gains, extra UF run scheduled tomorrow at [place]. He does feel more SOB when fluid overloaded. No new symptoms otherwise, he is enjoying the nicer weather which allows him to do more activity and not sit at home and drink fluids which he thinks will help with IDWG's. 07/14/21: Continues to have high gains, unfortunately [facility] without staff to open tomorrow for extra [...] improving. Fluid gains continue to be high, [facility] not open on this week, says he will do his best withlimiting salt/fluid. HE does feel SOB with exertion with extra fluid on, no orthopnea. 05/26/21: Has SOB when >5 Kg over dry weight, extra run last week at [facility] helped. Trying his best with fluid restriction. [...] extra run and we discussed going to [place] tomorrow for UF only run and he [...] again today, may need extra run at [place] if can't get down over next week. [...] for ureteral ?tumor early next month in [place]. 06/10: Doing well overall, no new complaints, [...] Went to Urgent care -> ER in [place] yesterday,CT with R hydro but no obstructive [...] He had infiltration last week, dialyzed at [facility] on Sat and went well, [...] prescription. Vascular Access Assessment Type of access: [id number]/2019 Surgeon - Lary GARDNER 08/2021: [facility]ulagram at [facility] with angioplasty of stenosis completed [...] below goal. Intact PTH is above goal. Battery Charger Tester will adjust binders and vitamin D per [...] high Extra UF run needed occasionally at [facility] when they are open, did last week [...]
--- OUTSIDE RECORDS SUMMARY | 2021-12-22 11:27 | XMS_ITS | Encounter Summary ---
:1945 Author Organization [facility] Address [address] [place] [address] Care Team Providers Name Role Phone Unavailable Primary Care Provider Unavailable Encounter Details Date Type Department Care Team Description 08/25/2021 Treatment [facility] f Ernie Guzmán MD [address] [place] [address] [place], [place] [phone] (Wo rk) Social History Tobacco Use Types Packs/Day Years Used Date Smoking Tobacco: Unknown Comments: Smoking History Info:Patient n ot screened Sex Assigned at Date Recorded Not on file documented as of this encounter Miscellaneous Notes Dialysis Note - Ernie Pompa MD - 08/25/2021 10:16 AM CDT Date: Aug 25, 2021 Patient Name: Shaun Ocampo : 1945 Chart #: [id number] Sex: M This patient was personally seen [...] AM ) BP (sit): 118/41 AP(-) / PRODUCT LINE MANAGER: 171/153 Pulse: 69 Chairside data as of [...] mcg IVP Every 2 weeks 08/25/2021 08/24/2022 SPEECH PROFESSOR: Ernie Pompa MD LOCATION: [phone] SCHEDULE: -- 2nd Shift EDW: kg. DIALYZER: [...] and do periodic extra UF treatments at [facility] rather than risk more hypotension post-tx with use of midodrine and additional UF during treatments. He has fistulagram last week, went well and access working well since. 08/11: Continues to have problems with fluid gains. we have spent considerable time discussing this, he is trying to work on this but can't seem to avoid large gains. Will go to [facility] for UF tomorrow, needs extra treatments every 2 weeks it looks like to maintain EDW. He does get SOB when >5K over dry weight in particular. 07/21/21: Continues to struggle with fluid gains, extra UF run scheduled tomorrow at [facility]. He does feel more SOB when fluid overloaded. No new symptoms otherwise, he is enjoying the nicer weather which allows him to do more activity and not sit at home and drink fluids which he thinks will help with IDWG's. 07/14/21: Continues to have high gains, unfortunately [facility] without staff to open tomorrow for extra [...] improving. Fluid gains continue to be high, [facility] not open on this week, says he will do his best withlimiting salt/fluid. HE does feel SOB with exertion with extra fluid on, no orthopnea. 05/26/21: Has SOB when >5 Kg over dry weight, extra run last week at [facility] helped. Trying his best with fluid restriction. [...] extra run and we discussed going to [facility] tomorrow for UF only run and he [...] again today, may need extra run at [facility] if can't get down over next week. [...] for ureteral ?tumor early next month in [place]. 06/10: Doing well overall, no new complaints, [...] Went to Urgent care -> ER in [place] yesterday,CT with R hydro but no obstructive [...] had infiltration last week, dialyzed at [facility] on Sat and went well, [...] prescription. Vascular Access Assessment Type of access: [id number]/2019 Surgeon - Lary GARDNER 08/2021: fistulagram at [facility] with angioplasty of stenosis completed [...] at goal. Intact PTH is above goal. Crematory Attendant will adjust binders and vitamin D [...] maintain euvolemia, extra UF run planned at [facility] when they areopen either tomorrow or next week on Transplant Status: Patient is not a candidate. Weight, co-morbidities, age Resuscitation Status Stable dialysis, no changes to prescription Extra UF run at [facility] Continue work on lower IDWG's Titrate Vit [...]
--- OUTSIDE RECORDS SUMMARY | 2021-12-22 11:27 | XMS_ITS | Encounter Summary ---
:1945 Author Organization [facility] Address [address] [place] [address] Care Team Providers Name Role Phone Unavailable Primary Care Provider Unavailable Encounter Details Date Type Department Care Team Description 06/30/2021 Orders Only [facility] O f Ernie Guzmán MD [phone] [place] [address] [place], [place] [phone] (Wo rk) Social History Tobacco Use [...] 07/01/2021 Unless otherwise specified, test(s) performed at: [facility], [address] [place] [address] DIRECTOR BIOMEDICAL ENGINEERING: Alec Payan M.D. For any questions, please call customer service at FREQUENCY:OTHER Resulting Agency Comment Specimen source: Blood Ernie Pompa MD LAB BLOOD ORDERABLES Performing Organization Address City/State/ZIP Code Phon e Number APS SPECTRA [facility] documented in this encounter Visit Diagnoses Not on filedocumented in this encounter
--- OUTSIDE RECORDS SUMMARY | 2021-12-22 11:27 | XMS_ITS | Encounter Summary ---
:1945 Author Organization [facility] Address [address] [place] [address] Care Team Providers Name Role Phone Unavailable Primary Care Provider Unavailable Encounter Details Date Type Department Care Team Description 06/23/2021 Orders Only [facility] f Ernie Guzmán MD [address] [place] [address] [place], [place] [phone] (Wo rk) Social History Tobacco Use [...] Provider LAB BLOOD ORDERABLES Performing Organization Address City/[facility]/ZIP Code Phon e Number KAMERON (ABNORMAL) [...] 06/28/2021 Unless otherwise specified, test(s) performed at: [facility], [address] [place], [place] [id number] SCOW DERRICK OPERATOR: Alec Payan M.D. For any questions, [...] 06/28/2021 Unless otherwise specified, test(s) performed at: [facility], [address] [place] [address] SCOW DERRICK OPERATOR: Alec Payan, M.D. For any questions, please [...] 06/28/2021 Unless otherwise specified, test(s) performed at: [facility], [address] [place] [address] SCOW DERRICK OPERATOR: Alec Payan M.D. For any questions, please call customer service at FREQUENCY:MONTHLY Resulting Agency Comment Specimen source: Serum Ernie Pompa MD LAB BLOOD ORDERABLES Performing Organization Address City/[facility] Phon e Number APS SPECTRA [facility] (ABNORMAL) Spectrae Chemistry (06/23/2021) P athologist Signature PTH 1,243 (H) 16 - 80 APS SPECTRA pg/mL [facility] Specimen (Source) Anatomical Collection Method Collection Time Re ceived Time Location / / Volume Laterality 06/23/2021 06/28/2021 10:1 5 AM CDT Narrative APS SPECTRA [facility] - 06/28/2021 Unless otherwise specified, test(s) performed at: [facility], [address] [place] [address] SCOW DERRICK OPERATOR: Alec Payan M.D. For any questions, please call customer service at FREQUENCY:MONTHLY Resulting Agency Comment Specimen source: Plasma Ernie Pompa MD LAB BLOOD ORDERABLES Performing Organization Address City/[facility] Code Phon e Number APS SPECTRA [facility] documented in this encounter Visit Diagnoses Not on filedocumented in this encounter
--- OUTSIDE RECORDS SUMMARY | 2021-12-22 11:27 | XMS_ITS | Encounter Summary ---
:1945 Author Organization [facility] Address [address] [place] [address] Care Team Providers Name Role Phone Unavailable Primary Care Provider Unavailable Encounter Details Date Type Department Care Team Description 09/15/2021 Treatment [facility] f Ernie Guzmán MD [address] [place] [address] [place], [place] [phone] [phone] (Wo rk) Social History Tobacco Use Types Packs/Day Years Used Date Smoking Tobacco: Unknown Comments: Smoking History Info:Patient n ot screened Sex Assigned at Date Recorded Not on file documented as of this encounter Miscellaneous Notes Dialysis Note - Ernie Pompa MD - 09/15/2021 10:30 AM CDT Date: Sep 15, 2021 Patient Name: Shaun Ocampo : 1945 Chart #: [id number] Sex: M This patient was personally seen [...] AM ) BP (sit): 107/33 AP(-) / SPORTS PHYSIOLOGIST: n/a Pulse: 65 Chairside data as of [...] mcg IVP Every 2 weeks 09/15/2021 09/14/2022 SWIMMING POOL SERVICE TECHNICIAN: Ernie Pompa MD LOCATION: [phone] SCHEDULE: -- 2nd Shift ACCESS: EDW: kg. [...] and do periodic extra UF treatments at [facility] rather than risk more hypotension post-tx with use of midodrine and additional UF during treatments. He has fistulagram last week, went well and access working well since. 08/11: Continues to have problems with fluid gains. we have spent considerable time discussing this, he is trying to work on this but can't seem to avoid large gains. Will go to [facility] for UF tomorrow, needs extra treatments every 2 weeks it looks like to maintain EDW. He does get SOB when >5K over dry weight in particular. 07/21/21: Continues to struggle with fluid gains, extra UF run scheduled tomorrow at [place]. He does feel more SOB when fluid overloaded. No new symptoms otherwise, he is enjoying the nicer weather which allows him to do more activity and not sit at home and drink fluids which he thinks will help with IDWG's. 07/14/21: Continues to have high gains, unfortunately [facility] without staff to open tomorrow for extra [...] improving. Fluid gains continue to be high, [facility] not open on this week, says he will do his best withlimiting salt/fluid. HE does feel SOB with exertion with extra fluid on, no orthopnea. 05/26/21: Has SOB when >5 Kg over dry weight, extra run last week at [facility] helped. Trying his best with fluid restriction. [...] extra run and we discussed going to [facility] tomorrow for UF only run and he [...] again today, may need extra run at [facility] if can't get down over next week. [...] for ureteral ?tumor early next month in [place]. 06/10: Doing well overall, no new complaints, [...] Went to Urgent care -> ER in [place] yesterday,CT with R hydro but no obstructive [...] He had infiltration last week, dialyzed at [facility] on Sat and went [...] (08/18/21) Vascular Access Assessment: Type of access: [id number] Surgeon - Lary GARDNER 08/2021: fistulagram at [facility] with angioplasty of stenosis completed Impression and Plan Stable dialysis overall, no changes to prescription made Continue to work on fluid gains, likely will need extra UF run every couple of weeks at [facility] I asked him to schedule follow-up with [...]
--- OUTSIDE RECORDS SUMMARY | 2021-12-22 11:27 | XMS_ITS | Encounter Summary ---
:1945 Author Organization [facility] Address [address] [place] [address] Care Team Providers Name Role Phone Unavailable Primary Care Provider Unavailable Encounter Details Date Type Department Care Team Description 10/06/2021 Orders [facility] O f Ernie Guzmán MD [phone] [place] [address] [place], [place] [phone] (Wo rk) Social History Tobacco Use [...] 10/07/2021 Unless otherwise specified, test(s) performed at: [facility], [address] [place] [address], [place] [address] CHANGE CONTROL MANAGER: Alhaji Noguera M.D., Ph.D For any questions, please call customer service at FREQUENCY:OTHER Resulting Agency Comment Specimen source: Blood Ernie Pompa MD LAB BLOOD ORDERABLES Performing Organization Address City/State/ZIP Code Phon e Number APS SPECTRA [facility] documented in this encounter Visit Diagnoses Not on filedocumented in this encounter
--- OUTSIDE RECORDS SUMMARY | 2021-12-22 11:27 | XMS_ITS | Encounter Summary ---
:1945 Author Organization [facility] Address [address] [place] [address] Care Team Providers Name Role Phone Unavailable Primary Care Provider Unavailable Encounter Details Date Type Department Care Team Description 08/11/2021 Orders Only [facility] f Ernie Guzmán MD [address] [place] [address] [place], [place] [phone] (Wo rk) Social History Tobacco Use [...] 08/12/2021 Unless otherwise specified, test(s) performed at: [facility], [address] [place] [address] GEODETIC ENGINEER: Alec Payan M.D. For any questions, please call customer service at FREQUENCY:OTHER Resulting Agency Comment Specimen source: Blood Ernie Pompa MD LAB BLOOD ORDERABLES Performing Organization Address City/State/ZIP Code Phon e Number APS SPECTRA [facility] documented in this encounter Visit Diagnoses Not on filedocumented in this encounter
--- OUTSIDE RECORDS SUMMARY | 2021-12-22 11:27 | XMS_ITS | Encounter Summary ---
:1945 Author Organization [facility] Address [address] [place] [address] Care Team Providers Name Role Phone Unavailable Primary Care Provider Unavailable Encounter Details Date Type Department Care Team Description 08/30/2021 Orders Only [facility] O f Ernie Guzmán MD [address] [place] [address] [place], [place] [phone] (Wo rk) Social History Tobacco Use [...] 08/31/2021 Unless otherwise specified, test(s) performed at: [facility], [address] [place] [address] BOTTLED BEVERAGE INSPECTOR: Alec Payan M.D. For any questions, please call customer service at FREQUENCY:OTHER Resulting Agency Comment Specimen source: Serum Ernie Pompa MD LAB BLOOD ORDERABLES Performing Organization Address City/[facility] Phon e Number APS SPECTRA [facility] (ABNORMAL) Spectrae Chemistry (08/30/2021) athologist Signature BUN 55 (H) 6 - 19 APS SPECTRA mg/dL [facility] Specimen (Source) Anatomical Collection Method Collection Time Re ceived Time Location / / Volume Laterality 08/30/2021 08/31/2021 5:11 PM CDT Narrative APS SPECTRA [facility] - 08/31/2021 Unless otherwise specified, test(s) performed at: [facility], [address] [place] [address] BOTTLED BEVERAGE INSPECTOR: Alec Payan M.D. For any questions, please call customer service at FREQUENCY:OTHER Resulting Agency Comment Specimen source: Serum Ernie Pompa MD LAB BLOOD ORDERABLES Performing Organization Address City/[facility] Phon e Number APS SPECTRA [facility] POST CHEMISTRY (08/30/2021) athologist Signature BUN Post 16 6 - 19 APS SPECTRA Dialysis mg/dL [facility] Specimen (Source) Anatomical Collection Method Collection Time Re ceived Time Location / / Volume Laterality 08/30/2021 08/31/2021 1:52 PM CDT Narrative APS SPECTRA [facility] - 08/31/2021 Unless otherwise specified, test(s) performed at: [facility], [address] [place] [address] BOTTLED BEVERAGE INSPECTOR: Alec Payan M.D. For any questions, please call customer service at FREQUENCY:OTHER Resulting Agency Comment Specimen source: Plasma Ernie Pompa MD LAB BLOOD ORDERABLES Performing Organization Address City/State/ZIP Code Phon e Number APS SPECTRA [facility] documented in this encounter Visit Diagnoses Not on filedocumented in this encounter
--- OUTSIDE RECORDS SUMMARY | 2021-12-22 11:27 | XMS_ITS | Encounter Summary ---
:1945 Author Organization [facility] Address [address] [place] [address] Care Team Providers Name Role Phone Unavailable Primary Care Provider Unavailable Encounter Details Date Type Department Care Team Description 07/28/2021 Orders Only [facility] O f Ernie Guzmán MD [phone] [place] [address] [place], [place] [phone] (Wo rk) Social History Tobacco Use [...] in this encounter Results (ABNORMAL) HEMATOLOGY (07/28/2021) [facility] gist Method Time Signature Hemoglobin 9.9 [...] 07/29/2021 Unless otherwise specified, test(s) performed at: [facility], [address] [place] [address] PUBLIC SAFETY TELECOMMUNICATOR: Alec Payan M.D. For any questions, please call customer service at FREQUENCY:OTHER Resulting Agency Comment Specimen source: Blood Ernie Pompa MD LAB BLOOD ORDERABLES Performing Organization Address City/State/ZIP Code Phon e Number APS SPECTRA [facility] documented in this encounter Visit Diagnoses Not on filedocumented in this encounter
--- OUTSIDE RECORDS SUMMARY | 2021-12-22 11:27 | XMS_ITS | Encounter Summary ---
:1945 Author Organization [facility] Address [address] [place] [address] Care Team Providers Name Role Phone Unavailable Primary Care Provider Unavailable Encounter Details Date Type Department Care Team Description 07/21/2021 Treatment [facility] f Ernie Guzmán MD [address] [place] [address] [place], [place] [phone] [phone] (Wo rk) Social History Tobacco Use Types Packs/Day Years Used Date Smoking Tobacco: Unknown Comments: Smoking History Info:Patient n ot screened Sex Assigned at Date Recorded Not on file documented as of this encounter Miscellaneous Notes Dialysis Note - Ernie Pompa MD - 07/21/2021 9:02 AM CDT Date: July 21, 2021 Patient Name: Shaun Ocampo : 1945 Chart #: [id number] Sex: M This patient was personally seen [...] AM ) BP (sit): 112/56 AP(-) / DIRECTOR FUNDRAISING: 158/144 Pulse: 77 Chairside data as of [...] mcg IVP Every 2 weeks 07/21/2021 07/20/2022 MEASURING MACHINE TENDER: Ernie Pompa MD LOCATION: [place] [phone] SCHEDULE: -W- 2nd Shift EDW: kg. DIALYZER: HD DURATION: NEEDLE SIZE: ANTICOAG: BATH: QB: ml/min QD: ml/min Subjective Tolerating dialysis well. 07/21/21: Continues to struggle with fluid gains, extra UF run scheduled tomorrow at [place]. He does feel more SOB when fluid overloaded. No new symptoms otherwise, he is enjoying the nicer weather which allows him to do more activity and not sit at home and drink fluids which he thinks will help with IDWG's. 07/14/21: Continues to have high gains, unfortunately [place] without staff to open tomorrow for extra [...] improving. Fluid gains continue to be high, [place] [facility] not open on this week, says he will do his best withlimiting salt/fluid. HE does feel SOB with exertion with extra fluid on, no orthopnea. 05/26/21: Has SOB when >5 Kg over dry weight, extra run last week at [place] helped. Trying his best with fluid restriction. [...] run and we discussed going to [place] tomorrow for UF only run and he [...] today, may need extra run at [place] if can't get down over next week. 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 06/10: Doing well overall, no new complaints, [...] Went to Urgent care -> ER in [place] yesterday,CT with R hydro but no obstructive [...] He had infiltration last week, dialyzed at [facility] on Sat and went well, access [...] prescription. Vascular Access Assessment Type of access: [id number]/2019 Surgeon - Lary GARDNER Access working well [...] at goal. Intact PTH is above goal. Skein Washer will adjust binders and vitamin D per [...] euvolemia, extra UF run planned 07/22/21 at [place] Transplant Status: Patient is not a candidate. Weight, co-morbidities, age Resuscitation Status Stable dialysis, no changes to prescription Extra UF run tomorrow at [place] Continue work on lower IDWG's Monthly labs being drawn today Ernie Pompa MD [ Signed And locked electronically On 07/21/2021 at 09:05:19 AM ] Transcribed: Ernie Pompa ( 07/21/2021 ) documented in this encounter Plan of Treatment Not on filedocumented as of this encounter Visit Diagnoses Not on filedocumented in this encounter
--- OUTSIDE RECORDS SUMMARY | 2021-12-22 11:27 | XMS_ITS | Encounter Summary ---
:1945 Author Organization [facility] Address [address] [place] [address] Care Team Providers Name Role Phone Unavailable Primary Care Provider Unavailable Encounter Details Date Type Department Care Team Description 10/13/2021 Treatment [facility] O f Ernie Guzmán MD [address] [place] [address] [place], [place] [address] [phone] (Wo rk) Social History Tobacco Use Types Packs/Day Years Used Date Smoking Tobacco: Unknown Comments: Smoking History Info:Patient n ot screened Sex Assigned at Date Recorded Not on file documented as of this encounter Miscellaneous Notes Dialysis Note - Ernie Pompa MD - 10/13/2021 12:07 PM CDT Date: Oct 13, 2021 Patient Name: Shaun Ocampo : 1945 Chart #: [id number] Sex: M This patient was personally seen for a basic visit as part of routine weekly dialysis care. A reviewof the dialysis treatment, blood pressure, estimated dry weight and recent lab values was made. These were discussed with the patient and staff as necessary. EDUCATIONAL INSTITUTION PRESIDENT: Ernie Pompa MD LOCATION: [phone] SCHEDULE: M-W-F 2nd Shift ACCESS: EDW: kg. DIALYZER: HD DURATION: NEEDLE SIZE: ANTICOAG: BATH: QB: ml/min QD: ml/min Subjective Tolerating dialysis well. 10/13: Had GI bleeding on Monday, went to ER after dialysis, admitted at [facility], had 3u blood, EGDwithout obvious source, ASA [...] and do periodic extra UF treatments at [place] rather than risk more hypotension post-tx with use of midodrine and additional UF during treatments. He has fistulagram last week, went well and access working well since. 08/11: Continues to have problems with fluid gains. we have spent considerable time discussing this, he is trying to work on this but can't seem to avoid large gains. Will go to [facility] for UF tomorrow, needs extra treatments every 2 weeks it looks like to maintain EDW. He does get SOB when >5K over dry weight in particular. 07/21/21: Continues to struggle with fluid gains, extra UF run scheduled tomorrow at [facility]. He does feel more SOB when fluid overloaded. No new symptoms otherwise, he is enjoying the nicer weather which allows him to do more activity and not sit at home and drink fluids which he thinks will help with IDWG's. 07/14/21: Continues to have high gains, unfortunately [facility] without staff to open tomorrow for extra [...] improving. Fluid gains continue to be high, [facility] not open on this week, says he will do his best withlimiting salt/fluid. HE does feel SOB with exertion with extra fluid on, no orthopnea. 05/26/21: Has SOB when >5 Kg over dry weight, extra run last week at [facility] helped. Trying his best with fluid restriction. [...] extra run and we discussed going to [facility] tomorrow for UF only run and he [...] again today, may need extra run at [facility] if can't get down over next week. 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 06/10: Doing well overall, no new complaints, [...] Went to Urgent care -> ER in [place] yesterday,CT with R hydro but no [...] infiltration last week, dialyzed at [facility] on Sat and went well, access [...] (08/20/21) Vascular Access Assessment: Type of access: [id number]/2019 Surgeon - Lary GARDNER 08/2021: fistulagram at [facility] with angioplasty of stenosis completed Impression and [...] Name: Shaun Ocampo : 1945 Chart #: [id number] Sex: M Patient has transitioned out of the following type of facility within the past 30 days: Discharging Facility: [facility] Patient caregiver is present? If yes, [...]
--- OUTSIDE RECORDS SUMMARY | 2021-12-22 11:27 | XMS_ITS | Encounter Summary ---
:1945 Author Organization [facility] Address [address] [place] [address] Care Team Providers Name Role Phone Unavailable Primary Care Provider Unavailable Encounter Details Date Type Department Care Team Description 07/14/2021 Orders Only [facility] O f Ernie Guzmán MD [address] [place] [address] [place], [place] [phone] (Wo rk) Social History Tobacco Use [...] 07/15/2021 Unless otherwise specified, test(s) performed at: [facility], [address] [place] [address] SYRUP BLENDER: Alec Payan M.D. For any questions, please call customer service at FREQUENCY:OTHER Resulting Agency Comment Specimen source: Blood Ernie Pompa MD LAB BLOOD ORDERABLES Performing Organization Address City/State/ZIP Code Phon e Number APS SPECTRA [facility] documented in this encounter Visit Diagnoses Not on filedocumented in this encounter
--- OUTSIDE RECORDS SUMMARY | 2021-12-22 11:27 | XMS_ITS | Encounter Summary ---
:1945 Author Organization [facility] Address [address] [place] [address] Care Team Providers Name Role Phone Unavailable Primary Care Provider Unavailable Encounter Details Date Type Department Care Team Description 08/20/2021 Orders [facility] O f Ernie Guzmán MD [address] [place] [address] [place], [place] [phone] (Wo rk) Social History Tobacco Use [...] 08/21/2021 Unless otherwise specified, test(s) performed at: [facility], [address] [place] [address] FORM SETTER SUPERVISOR: Alec Payan M.D. For any questions, please call customer service at FREQUENCY:OTHER Resulting Agency Comment Specimen source: Plasma Ernie Pompa MD LAB BLOOD ORDERABLES Performing Organization Address City/State/ZIP Code Phon e Number APS SPECTRA [facility] documented in this encounter Visit Diagnoses Not on filedocumented in this encounter
--- OUTSIDE RECORDS SUMMARY | 2021-12-22 11:27 | XMS_ITS | Encounter Summary ---
:1945 Author Organization [facility] Address [address] [place] [address] Care Team Providers Name Role Phone Unavailable Primary Care Provider Unavailable Encounter Details Date Type Department Care Team Description 06/16/2021 Orders Only [facility] O f Ernie Guzmán MD [address] [place] [address] [place], [place] [phone] (Wo rk) Social History Tobacco Use [...] 06/17/2021 Unless otherwise specified, test(s) performed at: [facility], [address] [place] [address] FABRICATION TECHNICIAN: Alec Payan M.D. For any questions, please call customer service at FREQUENCY:OTHER Resulting Agency Comment Specimen source: Blood Ernie Pompa MD LAB BLOOD ORDERABLES Performing Organization Address City/State/ZIP Code Phon e Number APS SPECTRA [facility] documented in this encounter Visit Diagnoses Not on filedocumented in this encounter
--- OUTSIDE RECORDS SUMMARY | 2021-12-22 11:27 | XMS_ITS | Encounter Summary ---
:1945 Author Organization [facility] Address [address] [place] [address] Care Team Providers Name Role Phone Unavailable Primary Care Provider Unavailable Encounter Details Date Type Department Care Team Description 07/14/2021 Treatment [facility] Ernie Guzmán MD [address] [place] [address] [place], [place] [phone] (Wo rk) Social History Tobacco Use Types Packs/Day Years Used Date Smoking Tobacco: Unknown Comments: Smoking History Info:Patient n ot screened Sex Assigned at Date Recorded Not on file documented as of this encounter Miscellaneous Notes Dialysis Note - Ernie Pompa MD - 07/14/2021 9:22 AM CDT Date: Jul 14, 2021 Patient Name: Shaun Ocampo : 1945 Chart #: [id number] Sex: M This patient was personally seen [...] AM ) BP (sit): 99/43 AP(-) / PRODUCTION SOLDERER: 152/133 Pulse: 67 Chairside data as of [...] mcg IVP Every 4 weeks 06/23/2021 06/22/2022 BOX TOE BUFFER: Ernie Pompa MD LOCATION: [place] [phone] SCHEDULE: -- 2nd Shift ACCESS: EDW: kg. DIALYZER: HD DURATION: NEEDLE SIZE: ANTICOAG: BATH: QB: ml/min QD: ml/min Subjective Tolerating dialysis well. 07/14/21: Continues to have high gains, unfortunately [place] without staff to open tomorrow for extra [...] improving. Fluid gains continue to be high, [place] not open on this week, says he will do his best withlimiting salt/fluid. HE does feel SOB with exertion with extra fluid on, no orthopnea. 05/26/21: Has SOB when >5 Kg over dry weight, extra run last week at [place] helped. Trying his best with fluid restriction. [...] extra run and we discussed going to [place] tomorrow for UF only run and he [...] again today, may need extra run at [place] if can't get down over next week. 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 06/10: Doing well overall, no new complaints, [...] Went to Urgent care -> ER in [place] yesterday,CT with R hydro but no [...] He had infiltration last week, dialyzed at [facility] on Sat and went well, [...] (05/26/21) Vascular Access Assessment: Type of access: [id number]/2019 Surgeon - Lary GARDNER Access working well [...] to go further to get this as [place] not open but he doesn't feel he can drive that far Ernie Pompa MD [ Signed And locked electronically On 07/14/2021 at 09:24:45 AM ] Transcribed: Ernie Pompa ( 07/14/2021 ) documented in this encounter Plan of Treatment Not on filedocumented as of this encounter Visit Diagnoses Not on filedocumented in this encounter
--- OUTSIDE RECORDS SUMMARY | 2021-12-22 11:27 | XMS_ITS | Encounter Summary ---
:1945 Author Organization [facility] Address [address] [place] [address] Care Team Providers Name Role Phone Unavailable Primary Care Provider Unavailable Encounter Details Date Type Department Care Team Description 08/04/2021 Orders Only [facility] f Ernie Guzmán MD [address] [place] [address] [place], [place] [phone] (Wo rk) Social History Tobacco Use [...] 08/06/2021 Unless otherwise specified, test(s) performed at: [facility], [address] [place] [address] PROFESSOR OF ENVIRONMENTAL STUDIES: Alec Payan M.D. For any questions, please call customer service at FREQUENCY:OTHER Resulting Agency Comment Specimen source: Serum Ernie Pompa MD LAB BLOOD ORDERABLES Performing Organization Address City/[facility]/ZIP Code Phon e Number APS SPECTRA [facility] (ABNORMAL) Spectrae Chemistry (08/04/2021) P athologist Signature PTH 986 (H) 16 - 80 APS SPECTRA pg/mL [facility] Specimen (Source) Anatomical Collection Method Collection Time Re ceived Time Location / / Volume Laterality 08/04/2021 2021 4:27 PM CDT Narrative APS SPECTRA [facility] - 2021 Unless otherwise specified, test(s) performed at: [facility], [address] [place], [place] [id number] PROFESSOR OF ENVIRONMENTAL STUDIES: Alec Payan M.D. For any questions, please call customer service at FREQUENCY:OTHER Resulting Agency Comment Specimen source: Plasma Ernie Pompa MD LAB BLOOD ORDERABLES Performing Organization Address [facility] Phon e Number APS SPECTRA [facility] (ABNORMAL) [...] 2021 Unless otherwise specified, test(s) performed at: [facility], [address] [place] [address] PROFESSOR OF ENVIRONMENTAL STUDIES: Alec Payan M.D. For any questions, please call customer service at FREQUENCY:OTHER Resulting Agency Comment Specimen source: Blood Ernie Pompa MD LAB BLOOD ORDERABLES Performing Organization Address City/[facility] Phon e Number APS SPECTRA [facility] documented in this encounter Visit Diagnoses Not on filedocumented in this encounter
--- OUTSIDE RECORDS SUMMARY | 2021-12-22 11:27 | XMS_ITS | Encounter Summary ---
:1945 Author Organization [facility] Address [address] [place] [address] Care Team Providers Name Role Phone Unavailable Primary Care Provider Unavailable Encounter Details Date Type Department Care Team Description 06/30/2021 Treatment [facility] f Ernie Guzmán MD [address] [place] [address] [place], [place] [phone] (Wo rk) Social History Tobacco Use Types Packs/Day Years Used Date Smoking Tobacco: Unknown Comments: Smoking History Info:Patient n ot screened Sex Assigned at Date Recorded Not on file documented as of this encounter Miscellaneous Notes Dialysis Note - Ernie Pompa MD - 06/30/2021 11:03 AM CDT Date: Jun 30, 2021 Patient Name: Shaun Ocampo : 1945 Chart #: [id number] Sex: M This patient was personally seen [...] AM ) BP (sit): 100/42 AP(-) / FISH BAILER: 167/131 Pulse: 78 Chairside data as of [...] 05/28/2021 04/23/2021 04/02/2021 Access Flow 1102 [id number] Treatment Medication Orders Medication Sig Start Date [...] mcg IVP Every 4 weeks 06/23/2021 06/22/2022 PLATEN GRINDER: Ernie Pompa MD LOCATION: [phone] SCHEDULE: -- 2nd Shift EDW: kg. DIALYZER: [...] improving. Fluid gains continue to be high, [place] not open on this week, says he will do his best withlimiting salt/fluid. HE does feel SOB with exertion with extra fluid on, no orthopnea. 05/26/21: Has SOB when >5 Kg over dry weight, extra run last week at [place] helped. Trying his best with fluid restriction. [...] extra run and we discussed going to [place] tomorrow for UF only run and he [...] again today, may need extra run at [place] if can't get down over next week. 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 06/10: Doing well overall, no new complaints, [...] Went to Urgent care -> ER in [place] yesterday,CT with R hydro but no obstructive [...] prescription. Vascular Access Assessment Type of access: [id number]/2019 Surgeon Annita KUMARW Access working well Anemia [...] at goal. Intact PTH is above goal. Snorkelling Instructor will adjust binders and vitamin D per [...] to prescription Extra UF run tomorrow at [place] Continue work on lower IDWG's Ernie Pompa MD [ Signed And locked electronically On 06/30/2021 at 11:05:31 AM ] Transcribed: Ernie Pompa ( 06/30/2021 ) documented in this encounter Plan of Treatment Not on filedocumented as of this encounter Visit Diagnoses Not on filedocumented in this encounter
--- OUTSIDE RECORDS SUMMARY | 2021-12-22 11:27 | XMS_ITS | Encounter Summary ---
:1945 Author Organization [facility] Address [address] [place] [address] Care Team Providers Name Role Phone Unavailable Primary Care Provider Unavailable Encounter Details Date Type Department Care Team Description 07/07/2021 Orders Only [facility] f Ernie Guzmán MD [address] [place] [address] [place], [place] [phone] (Wo rk) Social History Tobacco Use [...] 07/10/2021 Unless otherwise specified, test(s) performed at: [facility], [address] [place] [address] PRODUCT SUPPORT SPECIALIST: Alec Payan M.D. For any [...] 07/10/2021 Unless otherwise specified, test(s) performed at: [facility], [address] [place], [place] [id number] PRODUCT SUPPORT SPECIALIST: Alec Payan M.D. For any questions, please call customer service at FREQUENCY:OTHER Resulting Agency Comment Specimen source: Plasma Ernie Pompa MD LAB BLOOD ORDERABLES Performing Organization Address [facility] Phon e [...] 07/10/2021 Unless otherwise specified, test(s) performed at: [facility], [address] [place] [address] PRODUCT SUPPORT SPECIALIST: Alec Payan M.D. For any questions, please call customer service at FREQUENCY:OTHER Resulting Agency Comment Specimen source: Blood Ernie Pompa MD LAB BLOOD ORDERABLES Performing Organization Address City/[facility]/ZIP [facility] Phon e Number APS SPECTRA [facility] documented in this encounter Visit Diagnoses Not on filedocumented in this encounter
--- OUTSIDE RECORDS SUMMARY | 2021-12-22 11:27 | XMS_ITS | Encounter Summary ---
:1945 Author Organization [facility] Address [address] [place] [address] Care Team Providers Name Role Phone Unavailable Primary Care Provider Unavailable Encounter Details Date Type Department Care Team Description 10/13/2021 Orders Only [facility] f Ernie Guzmán MD [address] [place] [address] [place], [place] [phone] (Wo rk) Social History Tobacco Use [...] 10/14/2021 Unless otherwise specified, test(s) performed at: [facility], [address] [place] [address], [place] [address] FRYER LINE HELPER: Alhaji Noguera M.D., Ph.D For any questions, please call customer service at FREQUENCY:OTHER Resulting Agency Comment Specimen source: Blood Ernie Pompa MD LAB BLOOD ORDERABLES Performing Organization Address City/State/ZIP Code Phon e Number APS SPECTRA [facility] documented in this encounter Visit Diagnoses Not on filedocumented in this encounter
--- OUTSIDE RECORDS SUMMARY | 2021-12-22 11:27 | XMS_ITS | Encounter Summary ---
:1945 Author Organization [facility] Address [address] [place] [address] Care Team Providers Name Role Phone Unavailable Primary Care Provider Unavailable Encounter Details Date Type Department Care Team Description 08/25/2021 Orders [facility] f Ernie Guzmán MD [address] [place] [address] [place], [place] [phone] (Wo rk) Social History Tobacco Use [...] 08/27/2021 Unless otherwise specified, test(s) performed at: [facility], [address] [place] [address] ESL TEACHER: Alec Payan M.D. For any questions, please call customer service at FREQUENCY:OTHER Resulting Agency Comment Specimen source: Blood Ernie Pompa MD LAB BLOOD ORDERABLES Performing Organization Address City/State/ZIP Code Phon e Number APS SPECTRA [facility] documented in this encounter Visit Diagnoses Not on filedocumented in this encounter
--- OUTSIDE RECORDS SUMMARY | 2021-12-22 11:27 | XMS_ITS | Encounter Summary ---
:1945 Author Organization [facility] Address [address] [place] [address] Care Team Providers Name Role Phone Unavailable Primary Care Provider Unavailable Encounter Details Date Type Department Care Team Description 08/18/2021 Orders [facility] f Ernie Guzmán MD [address] [place] [address] [place], [place] [phone] (Wo rk) Social History Tobacco Use [...] Provider LAB BLOOD ORDERABLES Performing Organization Address City/[facility]/ZIP Code Phon e Number [facility] (08/18/2021) P athologist Signature % Urea 67 65 - 80 % APS SPECTRA Reduction [facility] Specimen (Source) Anatomical Collection Method Collection Time Re ceived Time Location / / Volume Laterality 08/18/2021 08/20/2021 12:5 8 AM CDT Resulting Agency Comment Specimen source: Plasma Ernie Pompa MD LAB BLOOD ORDERABLES Performing Organization Address [facility]/ZIP Code Phon e Number APS SPECTRA [facility] POST CHEMISTRY (08/18/2021) P athologist Signature BUN Post 17 6 - 19 APS SPECTRA Dialysis mg/dL [facility] Specimen (Source) Anatomical Collection Method Collection Time Re ceived Time Location / / Volume Laterality 08/18/2021 08/20/2021 12:5 8 AM CDT Narrative APS SPECTRA [facility] - 08/20/2021 Unless otherwise specified, test(s) performed at: [facility], [address] [place] [address] EMBEDDED SOFTWARE TEST ENGINEER: Alec Payan M.D. For any questions, please call customer service at FREQUENCY:MONTHLY Resulting Agency Comment Specimen source: Plasma Ernie Pompa MD LAB BLOOD ORDERABLES Performing Organization Address City/[facility]/ZIP Code Phon e Number APS [...] 08/20/2021 Unless otherwise specified, test(s) performed at: [facility], [address] [place] [address] EMBEDDED SOFTWARE TEST ENGINEER: Alec Payan M.D. For any questions, please call customer service at FREQUENCY:MONTHLY Resulting Agency Comment Specimen source: Blood Ernie Pompa MD LAB BLOOD ORDERABLES Performing Organization Address City/[facility] Phon e Number APS SPECTRA [facility] (ABNORMAL) Spectrae Chemistry (08/18/2021) P athologist Signature PTH 766 (H) 16 - 80 APS SPECTRA pg/mL [facility] Specimen (Source) Anatomical Collection Method Collection Time Re ceived Time Location / / Volume Laterality 08/18/2021 08/19/2021 8:21 PM CDT Narrative APS SPECTRA [facility] - 08/20/2021 Unless otherwise specified, test(s) performed at: [facility], [address] [place] [address] EMBEDDED SOFTWARE TEST ENGINEER: Alec Payan M.D. For any questions, please call customer service at FREQUENCY:MONTHLY Resulting Agency Comment Specimen source: Plasma Ernie Pompa MD LAB BLOOD ORDERABLES Performing Organization Address City/[facility] Phon e Number APS SPECTRA [...] 08/20/2021 Unless otherwise specified, test(s) performed at: [facility], [address] [place] [address] EMBEDDED SOFTWARE TEST ENGINEER: Alec Payan M.D. For any questions, [...] 08/19/2021 Unless otherwise specified, test(s) performed at: [facility], [address] [place] [address] EMBEDDED SOFTWARE TEST ENGINEER: Alec Payan M.D. For any questions, please call customer service at FREQUENCY:MONTHLY Resulting Agency Comment Specimen source: Serum Ernie Pompa MD LAB BLOOD ORDERABLES Performing Organization Address City/State/ZIP Code Phon e Number APS SPECTRA [facility] documented in this encounter Visit Diagnoses Not on filedocumented in this encounter
--- OUTSIDE RECORDS SUMMARY | 2021-12-22 11:27 | XMS_ITS | Encounter Summary ---
:1945 Author Organization [facility] Address [address] [place] [address] Care Team Providers Name Role Phone Unavailable Primary Care Provider Unavailable Encounter Details Date Type Department Care Team Description 07/21/2021 Orders Only [facility] f Ernie Guzmán MD [address] [place] [address] [place], [place] [phone] (Wo rk) Social History Tobacco Use [...] 07/24/2021 Unless otherwise specified, test(s) performed at: [facility], [address] [place] [address] MIDDLE SCHOOL SPORTS COACH: Alec Payan M.D. For any questions, [...] 07/24/2021 Unless otherwise specified, test(s) performed at: [facility], [address] [place] [address] MIDDLE SCHOOL SPORTS COACH: Alec Payan M.D. For any questions, please call customer service at FREQUENCY:MONTHLY Resulting Agency Comment Specimen source: Serum Ernie Pompa MD LAB BLOOD ORDERABLES Performing Organization Address City/[facility] Phon e Number APS SPECTRA [facility] POST CHEMISTRY (07/21/2021) P athologist Signature BUN Post 14 6 - 19 APS SPECTRA Dialysis mg/dL [facility] Specimen (Source) Anatomical Collection Method Collection Time Re ceived Time Location / / Volume Laterality 07/21/2021 07/23/2021 4:30 PM CDT Narrative APS SPECTRA [facility] - 07/24/2021 Unless otherwise specified, test(s) performed at: [facility], [address] [place] [address] MIDDLE SCHOOL SPORTS COACH: Alec Payan M.D. For any questions, please call customer service at FREQUENCY:MONTHLY Resulting Agency Comment Specimen source: Plasma Ernie Pompa MD LAB BLOOD ORDERABLES Performing Organization Address City/[facility] Phon e Number APS SPECTRA [facility] IMMUNO CHEMISTRY (07/21/2021) P athologist Signature Hep B Surface Negative Negative APS SPECTRA Ag [facility] Specimen (Source) Anatomical Collection Method Collection Time Re ceived Time Location / / Volume Laterality 07/21/2021 07/23/2021 12:4 6 PM CDT Narrative APS SPECTRA [facility] - 07/23/2021 Unless otherwise specified, test(s) performed at: [facility], [address] [place] [address] MIDDLE SCHOOL SPORTS COACH: Alec Payan M.D. For any questions, [...] 07/23/2021 Unless otherwise specified, test(s) performed at: [facility], [address] [place] [address] MIDDLE SCHOOL SPORTS COACH: Alec Payan M.D. For any questions, please call customer service at FREQUENCY:MONTHLY Resulting Agency Comment Specimen source: Blood Ernie Pompa MD LAB BLOOD ORDERABLES Performing Organization Address City/State/ZIP Code Phon e Number APS SPECTRA [facility] documented in this encounter Visit Diagnoses Not on filedocumented in this encounter
--- OUTSIDE RECORDS SUMMARY | 2021-12-22 11:27 | XMS_ITS | Encounter Summary ---
:1945 Author Organization [facility] Address [address] [place] [address] Care Team Providers Name Role Phone Unavailable Primary Care Provider Unavailable Encounter Details Date Type Department Care Team Description 09/13/2021 Orders [facility] f Ernie Guzmán MD [address] [place] [address] [place], [place] [phone] (Wo rk) Social History Tobacco Use [...] 09/14/2021 Unless otherwise specified, test(s) performed at: [facility], [address] [place] [address] SUPERVISOR SHEARING: Alec Payan M.D. For any questions, please [...] 09/14/2021 Unless otherwise specified, test(s) performed at: [facility], [address] [place] [address] SUPERVISOR SHEARING: Alec Payan M.D. For any questions, please call customer service at FREQUENCY:OTHER Resulting Agency Comment Specimen source: Plasma Ernie Pompa MD LAB BLOOD ORDERABLES Performing Organization Address City/[facility]/ZIP Code Phon e Number APS SPECTRA [facility] documented in this encounter Visit Diagnoses Not on filedocumented in this encounter
--- OUTSIDE RECORDS SUMMARY | 2021-12-22 11:27 | XMS_ITS | Encounter Summary ---
:1945 Author Organization [facility] Address [address] [place] [address] Care Team Providers Name Role Phone Unavailable Primary Care Provider Unavailable Encounter Details Date Type Department Care Team Description 09/01/2021 Orders [facility] O f Ernie Guzmán MD [address] [place] [address] [place], [place] [phone] (Wo rk) Social History Tobacco Use [...] 09/03/2021 Unless otherwise specified, test(s) performed at: [facility], [address] [place] [address] LUMBER PRESS OPERATOR: Alec Payan M.D. For any questions, please call customer service at FREQUENCY:OTHER Resulting Agency Comment Specimen source: Serum Ernie Pompa MD LAB BLOOD ORDERABLES Performing Organization Address City/[facility] Phon e [...] 09/02/2021 Unless otherwise specified, test(s) performed at: [facility], [address] [place] [address] LUMBER PRESS OPERATOR: Alec Payan M.D. For any questions, please call customer service at FREQUENCY:OTHER Resulting Agency Comment Specimen source: Blood Ernie Pompa MD LAB BLOOD ORDERABLES Performing Organization Address City/[facility] Phon e Number APS SPECTRA [facility] documented in this encounter Visit Diagnoses Not on filedocumented in this encounter
--- OUTSIDE RECORDS SUMMARY | 2021-12-22 11:27 | XMS_ITS | Encounter Summary ---
:1945 Author Organization [facility] Address [address] [place] [address] Care Team Providers Name Role Phone Unavailable Primary Care Provider Unavailable Encounter Details Date Type Department Care Team Description 09/08/2021 Orders Only [facility] O f Ernie Guzmán MD [address] [place] [address] [place], [place] [phone] (Wo rk) Social History Tobacco Use [...] 09/09/2021 Unless otherwise specified, test(s) performed at: [facility], [address] [place] [address] COTA: Alec Payan M.D. For any questions, please call customer service at FREQUENCY:OTHER Resulting Agency Comment Specimen source: Blood Ernie Pompa MD LAB BLOOD ORDERABLES Performing Organization Address City/State/ZIP Code Phon e Number APS SPECTRA [facility] documented in this encounter Visit Diagnoses Not on filedocumented in this encounter
[2021-12-22 11:28] LABS: Slide Review Reflex No
--- OUTSIDE RECORDS SUMMARY | 2021-12-22 11:28 | XMS_ITS | Encounter Summary ---
:1945 Author Organization [facility] Address [address] [place] [address] Care Team Providers Name Role Phone Unavailable Primary Care Provider Unavailable Encounter Details Date Type Department Care Team Description 04/21/2021 Treatment [facility] f Ernie Guzmán MD [address] [place] [address] [place], [place] [phone] (Wo rk) Social History Tobacco Use Types Packs/Day Years Used Date Smoking Tobacco: Unknown Comments: Smoking History Info:Patient n ot screened Sex Assigned at Date Recorded Not on file documented as of this encounter Miscellaneous Notes Dialysis Note - Ernie Pompa MD - 04/21/2021 8:58 AM CST Date: Apr 21, 2021 Patient Name: Shaun Ocampo : 1945 Chart #: [id number] Sex: M This patient was personally seen [...] AM ) BP (sit): 113/62 AP(-) / SOFTWARE DEVELOPMENT ENGINEER: 176/155 Pulse: 78 Chairside data as of [...] 50 mg IVP 1X Week 04/12/2021 04/11/2022 LIFE INSURANCE SALESPERSON: Ernie Pompa MD LOCATION: [phone] SCHEDULE: M-W-F 2nd Shift EDW: kg. DIALYZER: [...] extra run and we discussed going to [place] tomorrow for UF only run and he [...] again today, may need extra run at [place] if can't get down over next week. 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 06/10: Doing well overall, no new complaints, [...] Went to Urgent care -> ER in [place] yesterday,CT with R hydro but no obstructive [...] prescription. Vascular Access Assessment Type of access: [id number]/2019 Surgeon - Lary GARDNER Access working well [...] at goal. Intact PTH is above goal. Biodiesel Production Technician will adjust binders and vitamin D [...]
--- OUTSIDE RECORDS SUMMARY | 2021-12-22 11:28 | XMS_ITS | Encounter Summary ---
:1945 Author Organization [facility] Address [address] [place] [address] Care Team Providers Name Role Phone Unavailable Primary Care Provider Unavailable Encounter Details Date Type Department Care Team Description 02/10/2021 [facility] O f Ernie Guzmán MD [address] [place] [address] [place], [place] [phone] (Wo rk) Social History Tobacco Use [...] / Volume Laterality 02/10/2021 02/12/2021 2:38 PM SHEETMETAL PATTERNMAKER Narrative [facility] - 02/12/2021 Unless otherwise specified, test(s) performed at: [facility], [address] [place] [address] STOCK SELECTOR: Alec Payan M.D. For any questions, please call customer service at FREQUENCY:OTHER Resulting Agency Comment Specimen source: Blood Ernie Pompa MD LAB BLOOD ORDERABLES Performing Organization Address City/State/ZIP Code Phon e Number [facility] documented in this encounter Visit Diagnoses Not on filedocumented in this encounter
--- OUTSIDE RECORDS SUMMARY | 2021-12-22 11:28 | XMS_ITS | Encounter Summary ---
:1945 Author Organization [facility] Address [address] [place] [address] Care Team Providers Name Role Phone Unavailable Primary Care Provider Unavailable Encounter Details Date Type Department Care Team Description 01/27/2021 [facility] O f Ernie Guzmán MD [address] [place] [address] [place], [place] [phone] (Wo rk) Social History Tobacco Use [...] Volume Laterality 01/27/2021 01/28/2021 10:1 8 PM PROPERTY PORTFOLIO OFFICER Narrative [facility] - 01/29/2021 Unless otherwise specified, test(s) performed at: [facility], [address] [place] [address] COUNCILLOR ABORIGINAL LAND COUNCIL: Alec Payan M.D. For any questions, please [...] Volume Laterality 01/27/2021 01/28/2021 10:4 1 PM PROPERTY PORTFOLIO OFFICER Narrative [facility] - 01/29/2021 Unless otherwise specified, test(s) performed at: [facility], [address] [place] [address] COUNCILLOR ABORIGINAL LAND COUNCIL: Alec Payna M.D. For any questions, please call customer service at FREQUENCY:OTHER Resulting Agency Comment Specimen source: Serum Ernie Pompa MD LAB BLOOD ORDERABLES Performing Organization Address City/State/ZIP Code Phon e Number [facility] documented in this encounter Visit Diagnoses Not on filedocumented in this encounter
--- OUTSIDE RECORDS SUMMARY | 2021-12-22 11:28 | XMS_ITS | Encounter Summary ---
:1945 Author Organization [facility] Address [address] [place] [address] Care Team Providers Name Role Phone Unavailable Primary Care Provider Unavailable Encounter Details Date Type Department Care Team Description 06/09/2021 [facility] O f Ernie Guzmán MD [phone] [place] [address] [place], [place] [phone] (Wo rk) Social History Tobacco Use [...] 06/10/2021 Unless otherwise specified, test(s) performed at: [facility], [address] [place] [address] ADHESIVE BANDAGE MACHINE OPERATOR: Alec Payan M.D. For any questions, please call customer service at FREQUENCY:OTHER Resulting Agency Comment Specimen source: Blood Ernie Pompa MD LAB BLOOD ORDERABLES Performing Organization Address City/State/ZIP Code Phon e Number [facility] documented in this encounter Visit Diagnoses Not on filedocumented in this encounter
--- OUTSIDE RECORDS SUMMARY | 2021-12-22 11:28 | XMS_ITS | Encounter Summary ---
:1945 Author Organization [facility] Address [address] [place] [address] Care Team Providers Name Role Phone Unavailable Primary Care Provider Unavailable Encounter Details Date Type Department Care Team Description 06/09/2021 Treatment [facility] O f Ernie Guzmán MD [address] [place] [address] [place], [place] [phone] (Wo rk) Social History Tobacco Use Types Packs/Day Years Used Date Smoking Tobacco: Unknown Comments: Smoking History Info:Patient n ot screened Sex Assigned at Date Recorded Not on file documented as of this encounter Miscellaneous Notes Dialysis Note - Ernie Pompa MD - 06/09/2021 10:34 AM CDT Date: Jun 09, 2021 Patient Name: Shaun Ocampo : 1945 Chart #: [id number] Sex: M This patient was personally seen [...] AM ) BP (sit): 115/55 AP(-) / SONAR SUBSYSTEM EQUIPMENT OPERATOR: 161/150 Pulse: 67 Chairside data as [...] mcg IVP Every 2 weeks 06/09/2021 06/08/2022 ONLINE MARKETING ANALYST: Ernie Pompa MD LOCATION: [phone] SCHEDULE: -- 2nd Shift ACCESS: EDW: kg. DIALYZER: HD DURATION: NEEDLE SIZE: ANTICOAG: BATH: QB: ml/min QD: ml/min Subjective Tolerating dialysis well. 06/09/21: Feels better today, had steroid injections in knees yesterday at [facility]. To do PT as well. He pulled muscle in his lower arm on L side last week getting into car, hurt a lot but is improving. Fluid gains continue to be high, [place] not open on this week, says he will do his best withlimiting salt/fluid. HE does feel SOB with exertion with extra fluid on, no orthopnea. 05/26/21: Has SOB when >5 Kg over dry weight, extra run last week at [place] helped. Trying his best with fluid restriction. [...] extra run and we discussed going to [place] tomorrow for UF only run and he [...] again today, may need extra run at [place] if can't get down over next week. 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 06/10: Doing well overall, no new complaints, [...] Went to Urgent care -> ER in [place] yesterday,CT with R hydro but no obstructive [...] He had infiltration last week, dialyzed at [facility] on Sat and went well, access ok [...] (05/05/21) Vascular Access Assessment: Type of access: [id number] Surgeon - Lary GARDNER Access working well [...]
--- OUTSIDE RECORDS SUMMARY | 2021-12-22 11:28 | XMS_ITS | Encounter Summary ---
:1945 Author Organization [facility] Address [address] [place] [address] Care Team Providers Name Role Phone Unavailable Primary Care Provider Unavailable Encounter Details Date Type Department Care Team Description 03/17/2021 [facility] O f Ernie Guzmán MD [phone] [place] [address] [address] [place], [place] [phone] (Wo rk) Social History Tobacco Use [...] / Volume Laterality 03/17/2021 03/18/2021 9:32 AM MOLYBDENUM STEAMER OPERATOR Narrative [facility] - 03/18/2021 Unless otherwise specified, test(s) performed at: [facility], [address] [place] [address] CORRECTIONS SERGEANT: Alec Payan M.D. For any questions, please call customer service at FREQUENCY:OTHER Resulting Agency Comment Specimen source: Blood Ernie Pompa MD LAB BLOOD ORDERABLES Performing Organization Address City/State/ZIP Code Phon e Number [facility] documented in this encounter Visit Diagnoses Not on filedocumented in this encounter
--- OUTSIDE RECORDS SUMMARY | 2021-12-22 11:28 | XMS_ITS | Encounter Summary ---
:1945 Author Organization [facility] Address [address] [place] [address] [address]kw[address] [place] [address] Care Team Providers Name Role Phone Unavailable Primary Care Provider Unavailable Encounter Details Date Type Department Care Team Description 05/21/2021 [facility] O f Ernie Guzmán MD [address] [place] [address] [place], [place] [phone] (Wo rk) Social History Tobacco Use [...] / Volume Laterality 05/21/2021 05/22/2021 1:14 PM LIQUID NATURAL GAS PLANT OPERATOR Resulting Agency Comment Specimen source: Serum Ernie Pompa MD LAB BLOOD ORDERABLES Performing Organization Address City/State/ZIP Code Phon e Number [facility] POST CHEMISTRY (05/21/2021) athologist Signature BUN Post 12 6 - 19 APS [facility]RA Dialysis mg/dL [facility] Specimen (Source) Anatomical Collection Method Collection Time Re ceived Time Location / / Volume Laterality 05/21/2021 05/22/2021 11:5 6 AM LIQUID NATURAL GAS PLANT OPERATOR Narrative [facility] - 05/22/2021 Unless otherwise specified, test(s) performed at: [facility], [address] [place] [address] MENSWEAR SALESPERSON: Alec Payan M.D. For any questions, [...] / Volume Laterality 05/21/2021 05/22/2021 1:14 PM LIQUID NATURAL GAS PLANT OPERATOR Narrative [facility] - 05/22/2021 Unless otherwise specified, test(s) performed at: [facility], [address] [place] [address] MENSWEAR SALESPERSON: Alec Payan M.D. For any questions, please call customer service at FREQUENCY:OTHER Resulting Agency Comment Specimen source: Serum Ernie Pompa MD LAB BLOOD ORDERABLES Performing Organization Address City/State/ZIP Code Phon e Number [facility] documented in this encounter Visit Diagnoses Not on filedocumented in this encounter
--- OUTSIDE RECORDS SUMMARY | 2021-12-22 11:28 | XMS_ITS | Encounter Summary ---
:1945 Author Organization [facility] Address [address] [place] [address] Care Team Providers Name Role Phone Unavailable Primary Care Provider Unavailable Encounter Details Date Type Department Care Team Description 03/10/2021 Treatment [facility] O Ernie Gómez MD [address] [place] [address] [place], [place] [phone] [phone] (Wo rk) Social History Tobacco Use Types Packs/Day Years Used Date Smoking Tobacco: Unknown Comments: Smoking History Info:Patient n ot screened Sex Assigned at Date Recorded Not on file documented as of this encounter Miscellaneous Notes Dialysis Note - Ernie Pompa MD - 03/10/2021 9:40 AM CST Date: Mar 10, 2021 Patient Name: Shaun Ocampo : 1945 Chart #: [id number] Sex: M This patient was personally seen [...] AM ) BP (sit): 116/55 AP(-) / BOX CAR CHECKER: 171/146 Pulse: 70 Chairside data as of [...] 0.25 mcg ORAL Every Treatment 03/08/2021 03/07/2022 MIRROR FABRICATION SUPERVISOR: Ernie Pompa MD LOCATION: [phone] SCHEDULE: -W-F 2nd Shift ACCESS: EDW: kg. DIALYZER: HD DURATION: NEEDLE SIZE: ANTICOAG: BATH: QB: ml/min QD: ml/min Subjective Tolerating dialysis well. 03/10/21: He has been marching in place and increasing duration to try and gain endurance, feels this is helping. Fluid gains continue to be high, no chance of reaching EDW this week without an extra run and we discussed going to [place] tomorrow for UF only run and he [...] again today, may need extra run at [place] if can't get down over next week. [...] for ureteral ?tumor early next month in [place]. 06/10: Doing well overall, no new complaints, [...] Went to Urgent care -> ER in [place] yesterday,CT with R hydro but no obstructive [...] (12/23/20) Vascular Access Assessment: Type of access: [id number] Surgeon - Lary GARDNER Access working well [...]
--- OUTSIDE RECORDS SUMMARY | 2021-12-22 11:28 | XMS_ITS | Encounter Summary ---
:1945 Author Organization [facility] Address [address] [place] [address] Care Team Providers Name Role Phone Unavailable Primary Care Provider Unavailable Encounter Details Date Type Department Care Team Description 05/26/2021 Orders Only [facility] O f Ernie Guzmán MD [phone] [place] [address] [place], [place] [phone] (Wo rk) Social History Tobacco Use [...] / Volume Laterality 05/26/2021 05/27/2021 6:19 PM RIPSAWYER Narrative [facility] - 05/28/2021 Unless otherwise specified, test(s) performed at: [facility], [address] [place], [place] [id number] FLIGHT SERVICE AGENT: Alec Payan M.D. For any questions, [...] Volume Laterality 05/26/2021 05/27/2021 10:2 3 AM RIPSAWYER Narrative [facility] - 05/27/2021 Unless otherwise specified, test(s) performed at: [facility], [address] [place], [place] [id number] FLIGHT SERVICE AGENT: Alec Payan M.D. For any questions, please call customer service at FREQUENCY:OTHER Resulting Agency Comment Specimen source: Plasma Ernie Pompa MD LAB BLOOD ORDERABLES Performing Organization Address City/[facility] Code Phon [...] Volume Laterality 05/26/2021 05/27/2021 10:1 9 AM RIPSAWYER Narrative [facility] - 05/27/2021 Unless otherwise specified, test(s) performed at: [facility], [address] [place], [place] [id number] FLIGHT SERVICE AGENT: Alec Payan M.D. For any questions, please call customer service at FREQUENCY:OTHER Resulting Agency Comment Specimen source: Blood Ernie Pompa MD LAB BLOOD ORDERABLES Performing Organization Address City/State/ZIP Code Phon e Number [facility] documented in this encounter Visit Diagnoses Not on filedocumented in this encounter
--- OUTSIDE RECORDS SUMMARY | 2021-12-22 11:28 | XMS_ITS | Encounter Summary ---
:1945 Author Organization [facility] Address [address] [place] [address] Care Team Providers Name Role Phone Unavailable Primary Care Provider Unavailable Encounter Details Date Type Department Care Team Description 04/14/2021 Orders Only [facility] O f Ernie Guzmán MD [address] [place] [address] [place], [place] [phone] (Wo rk) Social History Tobacco Use [...] Volume Laterality 04/14/2021 04/15/2021 10:0 0 AM COMMERCIAL RELIEF DRIVER Narrative [facility] - 04/15/2021 Unless otherwise specified, test(s) performed at: [facility], [address] [place] [address] AIRPORT CONTROL OPERATOR: Alec Payan M.D. For any questions, please call customer service at FREQUENCY:OTHER Resulting Agency Comment Specimen source: Blood Ernei Pompa MD LAB BLOOD ORDERABLES Performing Organization Address City/State/ZIP Code Phon e Number [facility] documented in this encounter Visit Diagnoses Not on filedocumented in this encounter
--- OUTSIDE RECORDS SUMMARY | 2021-12-22 11:28 | XMS_ITS | Encounter Summary ---
:1945 Author Organization [facility] Address [address] [place] [address] Care Team Providers Name Role Phone Unavailable Primary Care Provider Unavailable Encounter Details Date Type Department Care Team Description 05/17/2021 Orders Only [facility] O f Ernie Guzmán MD [address] [place] [address] [place], [place] [phone] (Wo rk) Social History Tobacco Use [...] / Volume Laterality 05/17/2021 05/18/2021 1:48 PM CEO & BOARD DIRECTOR Narrative [facility] - 05/18/2021 Unless otherwise specified, test(s) performed at: [facility], [address] [place] [address] KETTLE TENDER: Alec Payan M.D. For any questions, [...] Volume Laterality 05/17/2021 05/18/2021 11:1 2 AM CEO & BOARD DIRECTOR Narrative [facility] - 05/18/2021 Unless otherwise specified, test(s) performed at: [facility], [address] [place] [address] KETTLE TENDER: Alec Payan M.D. For any questions, please call customer service at FREQUENCY:OTHER Resulting Agency Comment Specimen source: Serum Ernie Pompa MD LAB BLOOD ORDERABLES Performing Organization Address City/[facility]/ZIP Code Phon e Number [facility]PS [facility]RA [facility] documented in this encounter Visit Diagnoses Not on filedocumented in this encounter
--- OUTSIDE RECORDS SUMMARY | 2021-12-22 11:28 | XMS_ITS | Encounter Summary ---
:1945 Author Organization [facility] Address [address] [place] [address] Care Team Providers Name Role Phone Unavailable Primary Care Provider Unavailable Encounter Details Date Type Department Care Team Description 04/21/2021 Orders Only [facility] O f Ernie Guzmán MD [address] [place] [address] [place], [place] [phone] (Wo rk) Social History Tobacco Use [...] Provider LAB BLOOD ORDERABLES Performing Organization Address City/[facility]/ZIP Code Phon e Number [place] (ABNORMAL) Spectrae Chemistry (04/21/2021) athologist Signature PTH 1,441 (H) 16 - 80 [facility] pg/mL [facility] Specimen (Source) Anatomical Collection Method Collection Time Re ceived Time Location / / Volume Laterality 04/21/2021 04/22/2021 1:39 PM RN OPERATING ROOM Narrative [facility] - 04/23/2021 Unless otherwise specified, test(s) performed at: [facility], [address] [place], [place] [id number] RUBBER COMPOUNDER SUPERVISOR: Alec Payan M.D. For any questions, please call customer service at FREQUENCY:MONTHLY Resulting Agency Comment Specimen source: Plasma Ernie Pompa MD LAB BLOOD ORDERABLES Performing Organization Address [facility] Phon e Number [facility]PS SPECTRA [facility] IMMUNO CHEMISTRY (04/21/2021) athologist [facility] Hep B Surface Negative Negative APS SPECTRA Ag [facility] Specimen (Source) Anatomical Collection Method Collection Time Re ceived Time Location / / Volume Laterality 04/21/2021 04/22/2021 3:00 PM RN OPERATING ROOM Narrative [facility]PS [facility] - 04/22/2021 Unless otherwise specified, test(s) performed at: [facility], [address] [place] [address] RUBBER COMPOUNDER SUPERVISOR: Alec Payan M.D. For any questions, please call customer service at FREQUENCY:MONTHLY Resulting Agency Comment Specimen source: Serum Ernie Pompa MD LAB BLOOD ORDERABLES Performing Organization Address City/[facility]/ZIP [facility] Phon e Number [facility] HD KINETICS (04/21/2021) athologist Signature % Urea 72 65 - 80 % [facility] Reduction [facility] Specimen (Source) Anatomical Collection Method Collection Time Re ceived Time Location / / Volume Laterality 04/21/2021 04/22/2021 5:02 PM RN OPERATING ROOM Resulting Agency Comment Specimen source: Plasma Ernie Pompa MD LAB BLOOD ORDERABLES Performing Organization Address City/State/ZIP Code Phon e Number [facility] POST CHEMISTRY (04/21/2021) P athologist Signature BUN Post 17 6 - 19 [facility] Dialysis mg/dL [facility] Specimen (Source) Anatomical Collection Method Collection Time Re ceived Time Location / / Volume Laterality 04/21/2021 04/22/2021 5:01 PM RN OPERATING ROOM Narrative [facility] - 04/22/2021 Unless otherwise specified, test(s) performed at: [facility], [address] [place] [address] RUBBER COMPOUNDER SUPERVISOR: Alec Payan M.D. For any questions, [...] / Volume Laterality 04/21/2021 04/22/2021 3:00 PM RN OPERATING ROOM Narrative [facility]PS [facility]RA [facility] - 04/22/2021 Unless otherwise specified, test(s) performed at: [facility], [address] [place] [address] RUBBER COMPOUNDER SUPERVISOR: Alec Payan M.D. For any questions, [...] / Volume Laterality 04/21/2021 04/22/2021 1:17 PM RN OPERATING ROOM Narrative [facility] - 04/22/2021 Unless otherwise specified, test(s) performed at: [facility], [address] [place] [address] RUBBER COMPOUNDER SUPERVISOR: Alec Payan M.D. For any questions, please call customer service at FREQUENCY:MONTHLY Resulting Agency Comment Specimen source: Blood Ernie Pompa MD LAB BLOOD ORDERABLES Performing Organization Address City/State/ZIP Code Phon e Number [facility] documented in this encounter Visit Diagnoses Not on filedocumented in this encounter
--- OUTSIDE RECORDS SUMMARY | 2021-12-22 11:28 | XMS_ITS | Encounter Summary ---
:1945 Author Organization [facility] Address [address] [place] [address] Care Team Providers Name Role Phone Unavailable Primary Care Provider Unavailable Encounter Details Date Type Department Care Team Description 02/17/2021 Orders Only [facility] O f Ernie uGzmán MD [address] [place] [address] [place], [place] [phone] (Wo rk) Social History Tobacco Use [...] / Volume Laterality 02/17/2021 02/18/2021 4:14 PM GRADUATE STUDENT INSTRUCTOR Resulting Agency Comment Specimen source: Serum Ernie [...] / Volume Laterality 02/17/2021 02/18/2021 4:00 PM GRADUATE STUDENT INSTRUCTOR Narrative [facility] - 02/19/2021 Unless otherwise specified, test(s) performed at: [facility], [address] [place] [address] RN COMMUNITY: Alec Payan M.D. For any questions, please call customer service at FREQUENCY:MONTHLY Resulting Agency Comment Specimen source: Plasma Ernie Pompa MD LAB BLOOD ORDERABLES Performing Organization Address City/[facility] Code Phon e Number [facility]PS S[facility]RA [facility] IMMUNO CHEMISTRY (02/17/2021) P athologist Signature Hep B Surface Negative Negative APS SPECTRA Ag [facility] Specimen (Source) Anatomical Collection Method Collection Time Re ceived Time Location / / Volume Laterality 02/17/2021 02/18/2021 4:08 PM GRADUATE STUDENT INSTRUCTOR Narrative [facility] - 02/18/2021 Unless otherwise specified, test(s) performed at: [facility], [address] [place] [address] RN COMMUNITY: Alec Payan M.D. For any questions, please call customer service at FREQUENCY:MONTHLY Resulting Agency Comment Specimen source: Serum Ernie Pompa MD LAB BLOOD ORDERABLES Performing Organization Address City/State/ZIP Code Phon e Number [facility]PS SPECTRA [facility] (ABNORMAL) Spectrae Chemistry (02/17/2021) [facility] Method Time Signature BUN 46 (H) [...] / Volume Laterality 02/17/2021 02/18/2021 4:08 PM GRADUATE STUDENT INSTRUCTOR Narrative [facility]PS S[facility]RA [facility] - 02/18/2021 Unless otherwise specified, test(s) performed at: [facility], [address] [place] [address] RN COMMUNITY: Alec Payan M.D. For any questions, please call customer service at FREQUENCY:MONTHLY Resulting Agency Comment Specimen source: Serum Ernie Pompa MD LAB BLOOD ORDERABLES Performing Organization Address City/[facility] Code Phon [...] / Volume Laterality 02/17/2021 02/18/2021 9:53 AM GRADUATE STUDENT INSTRUCTOR Narrative [facility]RA [facility] - 02/18/2021 Unless otherwise specified, test(s) performed at: [facility], [address] [place] [address] RN COMMUNITY: Alec Payan M.D. For any questions, please call customer service at FREQUENCY:MONTHLY Resulting Agency Comment Specimen source: Blood Ernie Pompa MD LAB BLOOD ORDERABLES Performing Organization Address City/[facility]/ZIP [facility] Phon e Number APS SPECTRA [facility] (ABNORMAL) Spectrae Chemistry (02/17/2021) P athologist Signature PTH 546 (H) 16 - 80 [facility]PS [facility]PECTRA pg/mL [facility] Specimen (Source) Anatomical Collection Method Collection Time Re ceived Time Location / / Volume Laterality 02/17/2021 02/18/2021 10:3 2 AM GRADUATE STUDENT INSTRUCTOR Narrative [facility]PS [facility]RA [facility] - 02/18/2021 Unless otherwise specified, test(s) performed at: [facility], [address] [place] [address] RN COMMUNITY: Alec Payan M.D. For any questions, please call customer service at FREQUENCY:MONTHLY Resulting Agency Comment Specimen source: Plasma Ernie Pompa MD LAB BLOOD ORDERABLES Performing Organization Address City/State/ZIP Code Phon e Number [facility]PS SPECTRA [facility] documented in this encounter Visit Diagnoses Not on filedocumented in this encounter
--- OUTSIDE RECORDS SUMMARY | 2021-12-22 11:28 | XMS_ITS | Encounter Summary ---
:1945 Author Organization [facility] Address [address] [place] [address] Care Team Providers Name Role Phone Unavailable Primary Care Provider Unavailable Encounter Details Date Type Department Care Team Description 02/24/2021 [facility] Only [facility] f Ernie Guzmán MD [phone] [place] [address] [place], [place] [phone] (Wo rk) Social History Tobacco Use [...] / Volume Laterality 02/24/2021 02/25/2021 6:54 PM ACCOUNT LIAISON Narrative APS SPECTRA [facility] - 02/26/2021 Unless otherwise specified, test(s) performed at: [facility], [address] [place] [address] SNOW PLOW TRACTOR OPERATOR: Alec Payan M.D. For any questions, please call customer service at FREQUENCY:OTHER Resulting Agency Comment Specimen source: Serum Ernie Pompa MD LAB BLOOD ORDERABLES Performing Organization Address City/[facility]/ZIP Code Phon e Number [facility]PS SPECTRA [facility] (ABNORMAL) HEMATOLOGY (02/24/2021) Analysis Performed At Patho logist Time Signature Hemoglobin 10.2 (L) 14.0 - [facility]PS [facility] 18.0 g/dL [facility] Hemoglobin x 3 30.6 (L) 42.0 - [facility]RA 54.0 % [facility] Specimen (Source) Anatomical Collection Method Collection Time Re ceived Time Location / / Volume Laterality 02/24/2021 02/25/2021 10:2 3 AM ACCOUNT LIAISON Narrative [facility]PS S[facility]RA [facility] - 02/25/2021 Unless otherwise specified, test(s) performed at: [facility], [address] [place] [address] SNOW PLOW TRACTOR OPERATOR: Alec Payan M.D. For any questions, please call customer service at FREQUENCY:OTHER Resulting Agency Comment Specimen source: Blood Ernie Pompa MD LAB BLOOD ORDERABLES Performing Organization Address City/[facility] Phon e Number [facility]PS SPECTRA [facility] documented in this encounter Visit Diagnoses Not on filedocumented in this encounter
--- OUTSIDE RECORDS SUMMARY | 2021-12-22 11:28 | XMS_ITS | Encounter Summary ---
:1945 Author Organization [facility] Address [address] [place] [address] Care Team Providers Name Role Phone Unavailable Primary Care Provider Unavailable Encounter Details Date Type Department Care Team Description 05/12/2021 Orders Only [facility] O f Ernie Guzmán MD [phone] [place] [address] [place], [place] [phone] (Wo rk) Social History Tobacco Use [...] / Volume Laterality 05/12/2021 05/13/2021 1:22 PM HAIRSPRING I INSPECTOR Narrative [facility]PS SPECTRA [facility] - 05/13/2021 Unless otherwise specified, test(s) performed at: [facility], [address] [place] [address] HELP DESK INTERNSHIP: Alec Payan M.D. For any questions, please call customer service at FREQUENCY:OTHER Resulting Agency Comment Specimen source: Blood Ernie Pompa MD LAB BLOOD ORDERABLES Performing Organization Address City/State/ZIP Code Phon e Number [facility]PS SPECTRA [facility] documented in this encounter Visit Diagnoses Not on filedocumented in this encounter
--- OUTSIDE RECORDS SUMMARY | 2021-12-22 11:28 | XMS_ITS | Encounter Summary ---
:1945 Author Organization [facility] Address [address] [place] [address] Care Team Providers Name Role Phone Unavailable Primary Care Provider Unavailable Encounter Details Date Type Department Care Team Description 06/02/2021 [facility] Only [facility] O f Ernie Guzmán MD [phone] [place] [address] [place], [place] [phone] (Wo rk) Social History Tobacco Use [...] 06/03/2021 Unless otherwise specified, test(s) performed at: [facility], [address] [place] [address] BUS ESCORT: Alec Payan M.D. For any questions, please call customer service at FREQUENCY:OTHER Resulting Agency Comment Specimen source: Blood Ernie Pompa MD LAB BLOOD ORDERABLES Performing Organization Address City/State/ZIP Code Phon e Number [facility]PS SPECTRA [facility] documented in this encounter Visit Diagnoses Not on filedocumented in this encounter
--- OUTSIDE RECORDS SUMMARY | 2021-12-22 11:28 | XMS_ITS | Encounter Summary ---
:1945 Author Organization [facility] Address [address] [place] [address] Care Team Providers Name Role Phone Unavailable Primary Care Provider Unavailable Encounter Details Date Type Department Care Team Description 03/03/2021 Treatment [facility] O Ernie Gómez MD [address] [place] [address] [place], [place] [phone] [phone] (Wo rk) Social History Tobacco Use Types Packs/Day Years Used Date Smoking Tobacco: Unknown Comments: Smoking History Info:Patient n ot screened Sex Assigned at Date Recorded Not on file documented as of this encounter Miscellaneous Notes Dialysis Note - Ernie Pompa MD - 03/03/2021 9:56 AM CST Date: Mar 03, 2021 Patient Name: Shaun Ocampo : 1945 Chart #: [id number] Sex: M This patient was personally seen [...] AM ) BP (sit): 124/50 AP(-) / GAS FURNACE INSTALLER: 188/160 Pulse: 72 Chairside data as of [...] 11/20/2020 Access Flow 1384 > 2000 1432 WASTE/MATERIALS EXCHANGE SPECIALIST: Ernie Pompa MD LOCATION: [place] [phone] SCHEDULE: -- 2nd Shift EDW: kg. DIALYZER: [...] again today, may need extra run at Secretary if can't get down over next week. 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 06/10: Doing well overall, no new complaints, [...] Went to Urgent care -> ER in [place] yesterday,CT with R hydro but no obstructive [...] prescription. Vascular Access Assessment Type of access: [id number]/2019 Surgeon - Lary KUMARW Access working well [...] above goal. Intact PTH is at goal. Spinning Frame Cleaner will adjust binders and vitamin D [...]
--- OUTSIDE RECORDS SUMMARY | 2021-12-22 11:28 | XMS_ITS | Encounter Summary ---
:1945 Author Organization [facility] Address [address] [place] [address] Care Team Providers Name Role Phone Unavailable Primary Care Provider Unavailable Encounter Details Date Type Department Care Team Description 03/31/2021 Orders Only [facility] O f Ernie Guzmán MD [phone] [place] [address] [place], [place] [phone] (Wo rk) Social History Tobacco Use [...] Volume Laterality 03/31/2021 04/01/2021 10:3 5 PM SUPERVISOR CHLORINE LIQUEFACTION Narrative APS SPECTRA [facility] - 04/02/2021 Unless otherwise specified, test(s) performed at: [facility], [address] [place] [address] BOILER/CHILLER OPERATOR: Alec Payan M.D. For any questions, please call customer service at FREQUENCY:OTHER Resulting Agency Comment Specimen source: Serum Ernie Pompa MD LAB BLOOD ORDERABLES Performing Organization Address City/[facility]/ZIP Code Phon e Number APS SPECTRA [facility] (ABNORMAL) Spectrae Chemistry (03/31/2021) P athologist Signature PTH 1,309 (H) 16 - 80 APS SPECTRA pg/mL [facility] Specimen (Source) Anatomical Collection Method Collection Time Re ceived Time Location / / Volume Laterality 03/31/2021 04/01/2021 4:18 PM SUPERVISOR CHLORINE LIQUEFACTION Narrative [facility]PS SPECTRA [facility] - 04/02/2021 Unless otherwise specified, test(s) performed at: [facility], [address] [place], [place] [id number] BOILER/CHILLER OPERATOR: Alec Payan M.D. For any questions, please call customer service at FREQUENCY:OTHER Resulting Agency Comment Specimen source: Plasma Ernie Pompa MD LAB BLOOD ORDERABLES Performing Organization Address [facility] Phon e Number APS SPECTRA [facility] (ABNORMAL) HEMATOLOGY (03/31/2021) Analysis Performed At Patho logist Time Signature Hemoglobin 11.0 (L) 14.0 - APS SPECTRA 18.0 g/dL [facility] Hemoglobin x 3 33.0 (L) 42.0 - APS SPECTRA 54.0 % [facility] Specimen (Source) Anatomical Collection Method Collection Time Re ceived Time Location / / Volume Laterality 03/31/2021 04/01/2021 3:40 PM SUPERVISOR CHLORINE LIQUEFACTION Narrative APS SPECTRA [facility] - 04/02/2021 Unless otherwise specified, test(s) performed at: [facility], [address] [place] [address] BOILER/CHILLER OPERATOR: Alec Payan M.D. For any questions, please call customer service at FREQUENCY:OTHER Resulting Agency Comment Specimen source: Blood Ernie Pompa MD LAB BLOOD ORDERABLES Performing Organization Address City/[facility] Phon e Number [facility]PS SPECTRA [facility] documented in this encounter Visit Diagnoses Not on filedocumented in this encounter
--- OUTSIDE RECORDS SUMMARY | 2021-12-22 11:28 | XMS_ITS | Encounter Summary ---
:1945 Author Organization [facility] Address [address] [place] [address] Care Team Providers Name Role Phone Unavailable Primary Care Provider Unavailable Encounter Details Date Type Department Care Team Description 05/19/2021 Orders Only [facility] O f Ernie Guzmán MD [phone] [place] [address] [place], [place] [phone] (Wo rk) Social History Tobacco Use [...] Provider LAB BLOOD ORDERABLES Performing Organization Address [facility] Phon e Number KAMERON IMMUNO CHEMISTRY (05/19/2021) P athologist Signature Hep B Surface Negative Negative APS SPECTRA Ag [facility] Specimen (Source) Anatomical Collection Method Collection Time Re ceived Time Location / / Volume Laterality 05/19/2021 05/20/2021 3:10 PM ORAL AND MAXILLOFACIAL SURGERY RESIDENT Narrative [facility]PS S[facility]RA [facility] - 05/20/2021 Unless otherwise specified, test(s) performed at: [facility], [address] [place], [place] [address] TRUCKING SUPERVISOR: Alec Payan M.D. For any questions, please call customer service at FREQUENCY:MONTHLY Resulting Agency Comment Specimen source: Serum Ernie Pompa MD LAB BLOOD ORDERABLES Performing Organization Address [facility] Phon e Number [facility]PS SPECTRA [facility] HD KINETICS (05/19/2021) P athologist Signature % Urea 69 65 - 80 % APS SPECTRA Reduction [facility] Specimen (Source) Anatomical Collection Method Collection Time Re ceived Time Location / / Volume Laterality 05/19/2021 05/20/2021 3:12 PM ORAL AND MAXILLOFACIAL SURGERY RESIDENT Narrative APS SPECTRA [facility] - 05/20/2021 Unless otherwise specified, test(s) performed at: [facility], [address] [place] [address] TRUCKING SUPERVISOR: Alec Payan M.D. For any questions, please call customer service at FREQUENCY:MONTHLY Resulting Agency Comment Specimen source: Serum Ernie Pompa MD LAB BLOOD ORDERABLES Performing Organization Address [facility] Phon e Number APS SPECTRA [facility] (ABNORMAL) [...] / Volume Laterality 05/19/2021 05/20/2021 3:10 PM ORAL AND MAXILLOFACIAL SURGERY RESIDENT Narrative APS SPECTRA [facility] - 05/20/2021 Unless otherwise specified, test(s) performed at: [facility], [address] [place] [address] TRUCKING SUPERVISOR: Alec Payan M.D. For any questions, [...] / Volume Laterality 05/19/2021 05/20/2021 2:08 PM ORAL AND MAXILLOFACIAL SURGERY RESIDENT Narrative APS SPECTRA [facility] - 05/20/2021 Unless otherwise specified, test(s) performed at: [facility], [address] [place] [address] TRUCKING SUPERVISOR: Alec Payan M.D. For any questions, [...] Volume Laterality 05/19/2021 05/20/2021 12:5 8 PM ORAL AND MAXILLOFACIAL SURGERY RESIDENT Narrative APS SPECTRA [facility] - 05/20/2021 Unless otherwise specified, test(s) performed at: [facility], [address] [place] [address] TRUCKING SUPERVISOR: Alec Payan M.D. For any questions, please call customer service at FREQUENCY:MONTHLY Resulting Agency Comment Specimen source: Blood Ernie Pompa MD LAB BLOOD ORDERABLES Performing Organization Address City/State/ZIP Code Phon e Number APS SPECTRA [facility] documented in this encounter Visit Diagnoses Not on filedocumented in this encounter
--- OUTSIDE RECORDS SUMMARY | 2021-12-22 11:28 | XMS_ITS | Encounter Summary ---
:1945 Author Organization [facility] Address [address] [place] [address] Care Team Providers Name Role Phone Unavailable Primary Care Provider Unavailable Encounter Details Date Type Department Care Team Description 03/10/2021 Orders Only [facility] O f Ernie Guzmán MD [address] [place] [address] [place], [place] [phone] (Wo rk) Social History Tobacco Use [...] Volume Laterality 03/10/2021 03/11/2021 10:5 0 AM FUEL ISLAND ATTENDANT Narrative APS SPECTRA [facility] - 03/11/2021 Unless otherwise specified, test(s) performed at: [facility], [address] [place] [address] SHIP CAPTAIN: Alec Payan M.D. For any questions, please call customer service at FREQUENCY:OTHER Resulting Agency Comment Specimen source: Blood Ernie Pompa MD LAB BLOOD ORDERABLES Performing Organization Address City/State/ZIP Code Phon e Number APS SPECTRA [facility] documented in this encounter Visit Diagnoses Not on filedocumented in this encounter
--- OUTSIDE RECORDS SUMMARY | 2021-12-22 11:28 | XMS_ITS | Encounter Summary ---
:1945 Author Organization [facility] Address [address] [place] [address] Care Team Providers Name Role Phone Unavailable Primary Care Provider Unavailable Encounter Details Date Type Department Care Team Description 03/24/2021 Orders Only [facility] O f Ernie Guzmán MD [address] [place] [address] [place], [place] [phone] (Wo rk) Social History Tobacco Use [...] and its performa nce characteristics determined by [facility]. It has not been cleared or approved by the FDA. The laboratory is regulated under CLIA a s qualified to perform high complexity testing. This test is used fo r clinical purposes. It should not be regarded as investigational or fo r research. Specimen (Source) Anatomical Collection Method Collection Time Re ceived Time Location / / Volume Laterality 03/24/2021 03/26/2021 11:3 3 AM SENIOR INFORMATION SECURITY ENGINEER Narrative APS SPECTRA [facility] - 03/29/2021 Unless otherwise specified, test(s) performed at: [facility], [address] [place] [address] TOLL TESTBOARD WORKER: Alec Payan M.D. For any questions, [...] above test result was obtained using Siemens [employer] XP chemiluminescent method. Results obtaine d with different assay methods or kits cannot be used interchangeably. Specimen (Source) Anatomical Collection Method Collection Time Re ceived Time Location / / Volume Laterality 03/24/2021 03/26/2021 12:2 9 PM SENIOR INFORMATION SECURITY ENGINEER Resulting Agency Comment Specimen source: Serum Ernie Pompa MD LAB BLOOD ORDERABLES Performing Organization Address [facility] Code Phon e Number APS SPECTRA [...] Organization Address [facility] Phon e Number KAMERON SPECIAL CHEMISTRY (03/24/2021) P athologist Signature Vitamin D, 38.3 30.0 - APS SPECTRA 25-OH, Total 100.0 [facility] ng/mL Comment: Vitamin D Status Classification: Deficiency ? <10.0 ng/mL Insufficiency ?10.0-30.0 ng/mL Sufficiency ?30.0-100.0 ng/mL Toxicity ? >100.0 ng/mL Specimen (Source) Anatomical Collection Method Collection Time Re ceived Time Location / / Volume Laterality 03/24/2021 03/26/2021 12:2 9 PM SENIOR INFORMATION SECURITY ENGINEER Narrative APS SPECTRA [facility] - 03/27/2021 Unless otherwise specified, test(s) performed at: [facility], [address] [place] [address] TOLL TESTBOARD WORKER: Alec Payan M.D. For any questions, please call customer service at FREQUENCY:MONTHLY Resulting Agency Comment Specimen source: Serum Ernie Pompa MD LAB BLOOD BANK TEST ORDERABL ES Performing Organization Address City/[facility] Phon e Number APS SPECTRA [facility] (ABNORMAL) Spectrae Chemistry (03/24/2021) P athologist Signature PTH 977 (H) 16 - 80 APS SPECTRA pg/mL [facility] Specimen (Source) Anatomical Collection Method Collection Time Re ceived Time Location / / Volume Laterality 03/24/2021 03/26/2021 11:4 0 AM SENIOR INFORMATION SECURITY ENGINEER Narrative APS SPECTRA [facility] - 03/26/2021 Unless otherwise specified, test(s) performed at: [facility], [address] [place] [address] TOLL TESTBOARD WORKER: Alec Payan M.D. For any questions, please call customer service at FREQUENCY:MONTHLY Resulting Agency Comment Specimen source: Plasma Ernie Pompa MD LAB BLOOD ORDERABLES Performing Organization Address [facility] Phon e Number APS SPECTRA [facility] HD KINETICS (03/24/2021) P athologist Signature % Urea 75 65 - 80 % APS SPECTRA Reduction [facility] Specimen (Source) Anatomical Collection Method Collection Time Re ceived Time Location / / Volume Laterality 03/24/2021 03/26/2021 2:17 PM SENIOR INFORMATION SECURITY ENGINEER Resulting Agency Comment Specimen source: Plasma Ernie Pompa MD LAB BLOOD ORDERABLES Performing Organization Address [facility] Code Phon e Number APS SPECTRA [facility] POST CHEMISTRY (03/24/2021) P athologist Signature BUN Post 16 6 - 19 APS SPECTRA Dialysis mg/dL [facility] Specimen (Source) Anatomical Collection Method Collection Time Re ceived Time Location / / Volume Laterality 03/24/2021 03/26/2021 2:15 PM SENIOR INFORMATION SECURITY ENGINEER Narrative APS SPECTRA [facility] - 03/26/2021 Unless otherwise specified, test(s) performed at: [facility], [address] [place] [address] TOLL TESTBOARD WORKER: Alec Payan M.D. For any questions, please call customer service at FREQUENCY:MONTHLY Resulting Agency Comment Specimen source: Plasma Ernie Pompa MD LAB BLOOD ORDERABLES Performing Organization Address [facility] Phon e Number APS SPECTRA [facility] (ABNORMAL) Spectrae Chemistry (03/24/2021) [facility] gist Method Time Signature BUN 63 [...] Volume Laterality 03/24/2021 03/26/2021 12:2 9 PM SENIOR INFORMATION SECURITY ENGINEER Narrative APS SPECTRA [facility] - 03/28/2021 Unless otherwise specified, test(s) performed at: [facility], [address] [place] [address] TOLL TESTBOARD WORKER: Alec Payan M.D. For any questions, please call customer service at FREQUENCY:MONTHLY Resulting Agency Comment Specimen source: Serum Ernie Pompa MD LAB BLOOD ORDERABLES Performing Organization Address City/State/[facility] Code Phon e Number APS SPECTRA [...] Volume Laterality 03/24/2021 03/26/2021 11:5 3 AM SENIOR INFORMATION SECURITY ENGINEER Narrative APS SPECTRA [facility] - 03/26/2021 Unless otherwise specified, test(s) performed at: [facility], [address] [place] [address] TOLL TESTBOARD WORKER: Alec Payan M.D. For any questions, please call customer service at FREQUENCY:MONTHLY Resulting Agency Comment Specimen source: Blood Ernie Pompa MD LAB BLOOD ORDERABLES Performing Organization Address City/[facility]/ZIP [facility] Phon e Number APS SPECTRA [facility] documented in this encounter Visit Diagnoses Not on filedocumented in this encounter
--- OUTSIDE RECORDS SUMMARY | 2021-12-22 11:28 | XMS_ITS | Encounter Summary ---
:1945 Author Organization [facility] Address [address] [place] [address] Care Team Providers Name Role Phone Unavailable Primary Care Provider Unavailable Encounter Details Date Type Department Care Team Description 05/05/2021 Orders Only [facility] O f Ernie Guzmán MD [address] [place] [address] [place], [place] [phone] (Wo rk) Social History Tobacco Use [...] / Volume Laterality 05/05/2021 05/06/2021 8:46 PM TRADE EMBALMER Narrative APS SPECTRA [facility] - 05/07/2021 Unless otherwise specified, test(s) performed at: [facility], [address] [place] [address] EMBLEM DRAWER IN: Alec Payan M.D. For any questions, please call customer service at FREQUENCY:OTHER Resulting Agency Comment Specimen source: Serum Ernie Pompa MD LAB BLOOD ORDERABLES Performing Organization Address City/[facility]/ZIP Code Phon e Number APS SPECTRA [facility] (ABNORMAL) HEMATOLOGY (05/05/2021) Analysis Performed At Patho logist Time Signature Hemoglobin 10.3 (L) 14.0 - APS SPECTRA 18.0 g/dL [facility] Hemoglobin x 3 30.9 (L) 42.0 - APS SPECTRA 54.0 % [facility] Specimen (Source) Anatomical Collection Method Collection Time Re ceived Time Location / / Volume Laterality 05/05/2021 05/06/2021 5:29 PM TRADE EMBALMER Narrative APS SPECTRA [facility] - 05/06/2021 Unless otherwise specified, test(s) performed at: [facility], [address] [place], [place] [id number] EMBLEM DRAWER IN: Alec Payan M.D. For any questions, please call customer service at FREQUENCY:OTHER Resulting Agency Comment Specimen source: Blood Ernie Pompa MD LAB BLOOD ORDERABLES Performing Organization Address [facility] Phon e Number APS SPECTRA [facility] (ABNORMAL) Spectrae Chemistry (05/05/2021) P athologist Signature PTH 1,457 (H) 16 - 80 APS SPECTRA pg/mL [facility] Specimen (Source) Anatomical Collection Method Collection Time Re ceived Time Location / / Volume Laterality 05/05/2021 05/06/2021 5:24 PM TRADE EMBALMER Narrative APS SPECTRA [facility] - 05/06/2021 Unless otherwise specified, test(s) performed at: [facility], [address] [place] [address] EMBLEM DRAWER IN: Alec Payan M.D. For any questions, please call customer service at FREQUENCY:OTHER Resulting Agency Comment Specimen source: Plasma Ernie Pompa MD LAB BLOOD ORDERABLES Performing Organization Address City/[facility] Phon e Number APS SPECTRA [facility] documented in this encounter Visit Diagnoses Not on filedocumented in this encounter
--- OUTSIDE RECORDS SUMMARY | 2021-12-22 11:28 | XMS_ITS | Encounter Summary ---
:1945 Author Organization [facility] Address [address] [place] [address] Care Team Providers Name Role Phone Unavailable Primary Care Provider Unavailable Encounter Details Date Type Department Care Team Description 05/26/2021 Treatment [facility] f Ernie Guzmán MD [address] [place] [address] [place], [place] [phone] (Wo rk) Social History Tobacco Use Types Packs/Day Years Used Date Smoking Tobacco: Unknown Comments: Smoking History Info:Patient n ot screened Sex Assigned at Date Recorded Not on file documented as of this encounter Miscellaneous Notes Dialysis Note - Ernie Pompa MD - 05/26/2021 10:14 AM CST Date: May 26, 2021 Patient Name: Shaun Ocampo : 1945 Chart #: [id number] Sex: M This patient was personally seen [...] AM ) BP (sit): 117/59 AP(-) / SEMICONDUCTOR PACKAGE SYMBOL STAMPER: 176/154 Pulse: 78 Chairside data as of [...] mcg IVP Every 2 weeks 05/26/2021 05/25/2022 SENIOR TRIAL ATTORNEY: Ernie Pompa MD LOCATION: [facility] [phone] SCHEDULE: -- 2nd Shift EDW: kg. DIALYZER: HD DURATION: NEEDLE SIZE: ANTICOAG: BATH: QB: ml/min QD: ml/min Subjective Tolerating dialysis well. 05/26/21: Has SOB when >5 Kg over dry weight, extra run last week at [facility] helped. Trying his best with fluid restriction. [...] well. He had extra [facility] that week an [...] extra run and we discussed going to [facility] tomorrow for UF only run and he [...] again today, may need extra run at [facility] if can't get down over next week. 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 06/10: Doing well overall, no new complaints, [...] Went to Urgent care -> ER in [place] yesterday,CT with R hydro but no obstructive [...] prescription. Vascular Access Assessment Type of access: [id number]/2019 Surgeon - Lary KUMARW Access working well [...] at goal. Intact PTH is above goal. Stock Fitter will adjust binders and vitamin D per [...] as tolerated, may need extra run at [facility] again if can't achieve dry weight Continue [...]
--- OUTSIDE RECORDS SUMMARY | 2021-12-22 11:28 | XMS_ITS | Encounter Summary ---
:1945 Author Organization [facility] Address [address] [place] [address] Care Team Providers Name Role Phone Unavailable Primary Care Provider Unavailable Encounter Details Date Type Department Care Team Description 02/03/2021 Treatment [facility] O Ernie Gómez MD [address] [place] [address] [place], [place] [phone] (Wo rk) Social History Tobacco Use Types Packs/Day Years Used Date Smoking Tobacco: Unknown Comments: Smoking History Info:Patient n ot screened Sex Assigned at Date Recorded Not on file documented as of this encounter Miscellaneous Notes Dialysis Note - Ernie Pompa MD - 02/03/2021 11:33 AM CST Date: Feb 03, 2021 Patient Name: Shaun Ocampo : 1945 Chart #: [id number] Sex: M This patient was personally seen [...] 2.0 mcg ORAL Every Treatment 12/30/2020 12/29/2021 RADIOLOGY RESIDENT: Ernie Pompa MD LOCATION: [facility] [phone] SCHEDULE: M-W- 2nd Shift ACCESS: EDW: kg. 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 06/10: Doing well overall, no new complaints, [...] Went to Urgent care -> ER in [place] yesterday,CT with R hydro but no [...] (11/18/20) Vascular Access Assessment: Type of access: [id number]/2019 Surgeon - Lary GARDNER Access working well [...]
--- OUTSIDE RECORDS SUMMARY | 2021-12-22 11:28 | XMS_ITS | Encounter Summary ---
:1945 Author Organization [facility] Address [address] [place] [address] Care Team Providers Name Role Phone Unavailable Primary Care Provider Unavailable Encounter Details Date Type Department Care Team Description 04/14/2021 Treatment [facility] f Ernie Guzmán MD [address] [place] [address] [place], [place] [phone] [phone] (Wo rk) Social History Tobacco Use Types Packs/Day Years Used Date Smoking Tobacco: Unknown Comments: Smoking History Info:Patient n ot screened Sex Assigned at Date Recorded Not on file documented as of this encounter Miscellaneous Notes Dialysis Note - Ernie Pompa MD - 04/14/2021 10:26 AM CST Date: Apr 14, 2021 Patient Name: Shaun Ocampo : 1945 Chart #: [id number] Sex: M This patient was personally seen [...] AM ) BP (sit): 110/48 AP(-) / NURSE LICENSED PRACTICAL: 166/145 Pulse: 77 Chairside data as of [...] mcg IVP Every 2 weeks 04/07/2021 04/06/2022 LICENSE AND PERMIT SPECIALIST: Ernie Pompa MD LOCATION: [phone] SCHEDULE: M-W- 2nd Shift ACCESS: EDW: kg. 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 06/10: Doing well overall, no new [...] Went to Urgent care -> ER in [place] yesterday,CT with R hydro but no obstructive [...] He had infiltration last week, dialyzed at [facility] on Sat and went well, [...] (02/17/21) Vascular Access Assessment: Type of access: [id number]/2019 Surgeon - Lary GARDNER Access working well [...]
--- OUTSIDE RECORDS SUMMARY | 2021-12-22 11:28 | XMS_ITS | Encounter Summary ---
:1945 Author Organization [facility] Address [address] [place] [address] Care Team Providers Name Role Phone Unavailable Primary Care Provider Unavailable Encounter Details Date Type Department Care Team Description 04/07/2021 Orders [facility] f Ernie Guzmán MD [address] [place] [address] [place], [place] [phone] (Wo rk) Social History Tobacco Use [...] Volume Laterality 04/07/2021 04/09/2021 11:4 3 AM ENVIRONMENTAL DESIGNER Narrative [facility] - 04/09/2021 Unless otherwise specified, test(s) performed at: [facility], [address] [place] [address] PAYROLL PROFESSIONAL: Alec Payan M.D. For any questions, please call customer service at FREQUENCY:OTHER Resulting Agency Comment Specimen source: Blood Ernie Pompa MD LAB BLOOD ORDERABLES Performing Organization Address City/State/ZIP Code Phon e Number [facility] documented in this encounter Visit Diagnoses Not on filedocumented in this encounter
--- OUTSIDE RECORDS SUMMARY | 2021-12-22 11:28 | XMS_ITS | Encounter Summary ---
:1945 Author Organization [facility] Address [address] [place] [address] Care Team Providers Name Role Phone Unavailable Primary Care Provider Unavailable Encounter Details Date Type Department Care Team Description 03/24/2021 Treatment [facility] f Ernie Guzmán MD [address] [place] [address] [place], [place] [phone] (Wo rk) Social History Tobacco Use Types Packs/Day Years Used Date Smoking Tobacco: Unknown Comments: Smoking History Info:Patient n ot screened Sex Assigned at Date Recorded Not on file documented as of this encounter Miscellaneous Notes Dialysis Note - Ernie Pompa MD - 03/24/2021 9:04 AM CST Date: Mar 24, 2021 Patient Name: Shaun Ocampo : 1945 Chart #: [id number] Sex: M This patient was personally seen [...] AM ) BP (sit): 114/54 AP(-) / ERP DEVELOPER: 170/152 Pulse: 69 Chairside data as of [...] 0.25 mcg ORAL Every Treatment 03/08/2021 03/07/2022 PANTOGRAPH OPERATOR: Ernie Pompa MD LOCATION: [phone] SCHEDULE: M-W-F 2nd Shift EDW: kg. 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 06/10: Doing well overall, no new complaints, [...] Went to Urgent care -> ER in [place] yesterday,CT with R hydro but no obstructive [...] prescription. Vascular Access Assessment Type of access: [id number]/2019 Surgeon Annita GARDNER Access working well Anemia [...] above goal. Intact PTH is at goal. Desktop Technician will adjust binders and vitamin D [...]
--- OUTSIDE RECORDS SUMMARY | 2021-12-22 11:28 | XMS_ITS | Encounter Summary ---
:1945 Author Organization [facility] Address [address] [place] [address] Care Team Providers Name Role Phone Unavailable Primary Care Provider Unavailable Encounter Details Date Type Department Care Team Description 05/05/2021 Treatment [facility] f Ernie Guzmán MD [address] [place] [address] [place], [place] [phone] (Wo rk) Social History Tobacco Use Types Packs/Day Years Used Date Smoking Tobacco: Unknown Comments: Smoking History Info:Patient n ot screened Sex Assigned at Date Recorded Not on file documented as of this encounter Miscellaneous Notes Dialysis Note - Ernie Pompa MD - 05/05/2021 10:18 AM CST Date: May 05, 2021 Patient Name: Shaun Ocampo : 1945 Chart #: [id number] Sex: M This patient was personally seen [...] AM ) BP (sit): 110/50 AP(-) / MANAGEMENT CONSULTING: 174/144 Pulse: 73 Chairside data as of [...] mcg IVP Every 2 weeks 04/28/2021 04/27/2022 JUNIOR SOFTWARE ENGINEER: Ernie Pompa MD LOCATION: [phone] SCHEDULE: M-W-F 2nd Shift ACCESS: EDW: kg. [...] extra run and we discussed going to [place] tomorrow for UF only run and he [...] again today, may need extra run at [place] if can't get down over next week. 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 06/10: Doing well overall, no new complaints, [...] Went to Urgent care -> ER in [place] yesterday,CT with R hydro but no obstructive [...] (03/24/21) Vascular Access Assessment: Type of access: [email or web address]/2019 Surgeon - Lary GARDNER Access working well [...]
--- OUTSIDE RECORDS SUMMARY | 2021-12-22 11:28 | XMS_ITS | Encounter Summary ---
:1945 Author Organization [facility] Address [address] [place] [address] Care Team Providers Name Role Phone Unavailable Primary Care Provider Unavailable Encounter Details Date Type Department Care Team Description 02/03/2021 Orders [facility] f Ernie Guzmán MD [phone] [place] [address] [place], [place] [phone] (Wo rk) Social History Tobacco Use [...] Volume Laterality 02/03/2021 02/04/2021 11:2 7 AM MEAL COOKER Narrative [facility] - 02/04/2021 Unless otherwise specified, test(s) performed at: [facility], [address] [place] [address] DISPENSING OPTICIAN APPRENTICE: Alec Payan M.D. For any questions, please call customer service at FREQUENCY:OTHER Resulting Agency Comment Specimen source: Blood Ernie Pompa MD LAB BLOOD ORDERABLES Performing Organization Address City/State/ZIP Code Phon e Number [facility] documented in this encounter Visit Diagnoses Not on filedocumented in this encounter
--- OUTSIDE RECORDS SUMMARY | 2021-12-22 11:28 | XMS_ITS | Encounter Summary ---
:1945 Author Organization [facility] Address [address] [place] [address] Care Team Providers Name Role Phone Unavailable Primary Care Provider Unavailable Encounter Details Date Type Department Care Team Description 04/28/2021 Orders [facility] f Ernie Guzmán MD [address] [place] [address] [place], [place] [phone] (Wo rk) Social History Tobacco Use [...] Volume Laterality 04/28/2021 04/29/2021 12:1 6 PM MINE CAR REPAIRER Narrative [facility] - 04/29/2021 Unless otherwise specified, test(s) performed at: [facility], [address] [place] [address] MUSIC VIDEO PRODUCER: Alec Payan M.D. For any questions, please call customer service at FREQUENCY:OTHER Resulting Agency Comment Specimen source: Blood Ernie Pompa MD LAB BLOOD ORDERABLES Performing Organization Address City/State/ZIP Code Phon e Number [facility] documented in this encounter Visit Diagnoses Not on filedocumented in this encounter
--- OUTSIDE RECORDS SUMMARY | 2021-12-22 11:29 | XMS_ITS | Encounter Summary ---
:1945 Author Organization [facility] Address [address] [place] [address] Care Team Providers Name Role Phone Unavailable Primary Care Provider Unavailable Encounter Details Date Type Department Care Team Description 10/28/2020 Orders [facility] f Ernie Guzmán MD [address] [place] [address] [place], [place] [phone] (Wo rk) Social History Tobacco Use [...] 10/29/2020 Unless otherwise specified, test(s) performed at: [email or web address], [address] [place] [address] PLANT CONTROL AIDE: Alec Payan M.D. For any questions, please call customer service at FREQUENCY:OTHER Resulting Agency Comment Specimen source: Blood Ernie Pompa MD LAB BLOOD ORDERABLES Performing Organization Address City/State/ZIP Code Phon e Number [facility] documented in this encounter Visit Diagnoses Not on filedocumented in this encounter
--- OUTSIDE RECORDS SUMMARY | 2021-12-22 11:29 | XMS_ITS | Encounter Summary ---
:1945 Author Organization [facility] Address [address] [place] [address] Care Team Providers Name Role Phone Unavailable Primary Care Provider Unavailable Encounter Details Date Type Department Care Team Description 09/09/2020 Orders [facility] f Ernie Guzmán MD [address] [place] [address] [place], [place] [phone] (Wo rk) Social History Tobacco Use [...] 09/11/2020 Unless otherwise specified, test(s) performed at: [facility], [address] [place] [address] FARM PRODUCTS SHIPPER: Alec Payan M.D. For any questions, please call customer service at FREQUENCY:OTHER Resulting Agency Comment Specimen source: Blood Ernie Pompa MD LAB BLOOD ORDERABLES Performing Organization Address City/State/ZIP Code Phon e Number [facility] documented in this encounter Visit Diagnoses Not on filedocumented in this encounter
--- OUTSIDE RECORDS SUMMARY | 2021-12-22 11:29 | XMS_ITS | Encounter Summary ---
:1945 Author Organization [facility] Address [address] [place] [address] Care Team Providers Name Role Phone Unavailable Primary Care Provider Unavailable Encounter Details Date Type Department Care Team Description 11/25/2020 Orders [facility] f Ernie Guzmán MD [address] [place] [address] [place], [place] [phone] (Wo rk) Social History Tobacco Use [...] 11/26/2020 Unless otherwise specified, test(s) performed at: [facility], [address] [place] [address] CORDAGE SALES REPRESENTATIVE: Alec Payan M.D. For any questions, please call customer service at FREQUENCY:OTHER Resulting Agency Comment Specimen source: Blood Ernie Pompa MD LAB BLOOD ORDERABLES Performing Organization Address City/State/ZIP Code Phon e Number [facility] documented in this encounter Visit Diagnoses Not on filedocumented in this encounter
--- OUTSIDE RECORDS SUMMARY | 2021-12-22 11:29 | XMS_ITS | Encounter Summary ---
:1945 Author Organization [facility] Address [address] [place] [address] Care Team Providers Name Role Phone Unavailable Primary Care Provider Unavailable Encounter Details Date Type Department Care Team Description 11/18/2020 Orders [facility] f Ernie Guzmán MD [address] [place] [address] [place], [place] [phone] (Wo rk) Social History Tobacco Use [...] MD LAB BLOOD ORDERABLES Performing Organization Address City/[facility]/ZIP Code Phon e Number [facility] POST CHEMISTRY (11/18/2020) athologist Signature BUN Post 11 6 - 19 [facility] Dialysis mg/dL [facility] Specimen (Source) Anatomical Collection Method Collection Time Re ceived Time Location / / Volume Laterality 11/18/2020 11/19/2020 6:04 PM CDT Narrative [facility] - 11/19/2020 Unless otherwise specified, test(s) performed at: [facility], [address] [place] [address] LEASING COORDINATOR: Alec Payan M.D. For any questions, please call customer service at FREQUENCY:MONTHLY Resulting Agency Comment Specimen source: Plasma Ernie Pompa MD LAB BLOOD ORDERABLES Performing Organization Address City/[facility] Code Phon e Number [facility] IMMUNO CHEMISTRY (11/18/2020) P athologist Signature Hep B Surface Negative Negative [facility] Ag [facility] Specimen (Source) Anatomical Collection Method Collection Time Re ceived Time Location / / Volume Laterality 11/18/2020 11/19/2020 3:22 PM CDT Narrative [facility] - 11/19/2020 Unless otherwise specified, test(s) performed at: [facility], [address] [place] [address] LEASING COORDINATOR: Alec Payan M.D. For any questions, [...] 11/19/2020 Unless otherwise specified, test(s) performed at: [facility], [address] [place] [address] LEASING COORDINATOR: Alec Payan M.D. For any questions, please call customer service at FREQUENCY:MONTHLY Resulting Agency Comment Specimen source: Blood Ernie Pompa MD LAB BLOOD ORDERABLES Performing Organization Address City/State/[facility] Code Phon e Number [facility] (ABNORMAL) [facility]rae Chemistry (11/18/2020) P athologist Signature PTH 969 (H) 16 - 80 [facility] pg/mL [facility] Specimen (Source) Anatomical Collection Method Collection Time Re ceived Time Location / / Volume Laterality 11/18/2020 11/19/2020 5:01 PM CDT Narrative [facility] - 11/19/2020 Unless otherwise specified, test(s) performed at: [facility], [address] [place] [address] LEASING COORDINATOR: Alec Payan M.D. For any questions, please call customer service at FREQUENCY:MONTHLY Resulting Agency Comment Specimen source: Plasma Ernie Pompa MD LAB BLOOD ORDERABLES Performing Organization Address City/State/ZIP Code Phon e Number [facility] (ABNORMAL) [facility] Chemistry (11/18/2020) Farmeto gist Method Time Signature BUN 51 (H) [...] 11/19/2020 Unless otherwise specified, test(s) performed at: [facility], [address] [place] [address] LEASING COORDINATOR: Alec Payan M.D. For any questions, please call customer service at FREQUENCY:MONTHLY Resulting Agency Comment Specimen source: Serum Ernie Pompa MD LAB BLOOD ORDERABLES Performing Organization Address City/State/ZIP Code Phon e Number [facility] documented in this encounter Visit Diagnoses Not on filedocumented in this encounter
--- OUTSIDE RECORDS SUMMARY | 2021-12-22 11:29 | XMS_ITS | Encounter Summary ---
:1945 Author Organization [facility] Address [address] [place] [address] Care Team Providers Name Role Phone Unavailable Primary Care Provider Unavailable Encounter Details Date Type Department Care Team Description 11/11/2020 Orders [facility] O f Ernie Guzmán MD [address] [place] [address] [place], [place] [phone] (Wo rk) Social History Tobacco Use [...] 11/12/2020 Unless otherwise specified, test(s) performed at: [facility], [address] [place] [address] ARTIFICIAL LEATHER CALENDER OPERATOR: Alec Payan M.D. For any questions, please call customer service at FREQUENCY:OTHER Resulting Agency Comment Specimen source: Blood Ernie Pompa MD LAB BLOOD ORDERABLES Performing Organization Address City/State/ZIP Code Phon e Number [facility] documented in this encounter Visit Diagnoses Not on filedocumented in this encounter
--- OUTSIDE RECORDS SUMMARY | 2021-12-22 11:29 | XMS_ITS | Encounter Summary ---
:1945 Author Organization [facility] Address [address] [place] [address] Care Team Providers Name Role Phone Unavailable Primary Care Provider Unavailable Encounter Details Date Type Department Care Team Description 11/18/2020 Treatment [facility] O Ernie Gómez MD [address] [place] [address] [place], [place] [phone] [phone] (Wo rk) Social History Tobacco Use Types Packs/Day Years Used Date Smoking Tobacco: Unknown Comments: Smoking History Info:Patient n ot screened Sex Assigned at Date Recorded Not on file documented as of this encounter Miscellaneous Notes Dialysis Note - Ernie Pompa MD - 11/18/2020 9:48 AM CDT Date: Nov 18, 2020 Patient Name: Shaun Ocampo : 1945 Chart #: [id number] Sex: M This patient was personally seen [...] 1.5 mcg ORAL Every Treatment 11/02/2020 11/01/2021 SAWMILL EQUIPMENT OPERATOR: Ernie Pompa MD LOCATION: [phone] SCHEDULE: -- 2nd Shift EDW: kg. 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 06/10: Doing well overall, no new complaints, [...] Went to Urgent care -> ER in [place] yesterday,CT with R hydro but no obstructive [...] prescription. Vascular Access Assessment Type of access: [id number]/2019 Surgeon Annita KUMARW Access working well Anemia [...] above goal. Intact PTH is above goal. Vp Analysis will adjust binders and vitamin D per [...]
--- OUTSIDE RECORDS SUMMARY | 2021-12-22 11:29 | XMS_ITS | Encounter Summary ---
:1945 Author Organization [facility] Address [address] [place] [address] Care Team Providers Name Role Phone Unavailable Primary Care Provider Unavailable Encounter Details Date Type Department Care Team Description 09/09/2020 [facility] f Ernie Guzmán MD [address] [place] [address] [place], [place] [phone] (Wo rk) Social History Tobacco Use Types Packs/Day Years Used Date Smoking Tobacco: Unknown Comments: Smoking History Info:Patient n ot screened Sex Assigned at Date Recorded Not on file documented as of this encounter Miscellaneous Notes Dialysis Note - Ernie Pompa MD - 09/09/2020 10:22 AM CDT Date: Sep 09, 2020 Patient Name: Shaun Ocampo : 1945 Chart #: [id number] Sex: M This patient was personally seen [...] AM ) BP (sit): 116/58 AP(-) / VETERINARY LABORATORY TECHNICIAN: 242/201 Pulse: 71 Chairside data as of [...] 06/26/2020 Access Flow [id number] > 2000 BURNER SHAFT: Ernie Pompa MD LOCATION: [place] [phone] SCHEDULE: -- 2nd Shift ACCESS: EDW: kg. [...] for ureteral ?tumor early next month in [place]. 06/10: Doing well overall, no new complaints, [...] Went to Urgent care -> ER in [place] yesterday,CT with R hydro but no obstructive [...] (06/24/20) Vascular Access Assessment: Type of access: [id number]/2019 Surgeon - Lary GARDNER Access working well [...]
--- OUTSIDE RECORDS SUMMARY | 2021-12-22 11:29 | XMS_ITS | Encounter Summary ---
:1945 Author Organization [facility] Address [address] [place] [address] Care Team Providers Name Role Phone Unavailable Primary Care Provider Unavailable Encounter Details Date Type Department Care Team Description 12/09/2020 Treatment [facility] f Ernie Guzmán MD [address] [place] [address] [place], [place] [phone] (Wo rk) Social History Tobacco Use Types [...] AM ) BP (sit): 134/63 AP(-) / CASH CLERK: 227/186 Pulse: 69 Chairside data as of [...] 09/18/2020 Access Flow 1432 > 2000 1138 POWER BARKER OPERATOR: Ernie Pompa MD LOCATION: [place] [phone] SCHEDULE: -- 2nd Shift ACCESS: EDW: kg. [...] for ureteral ?tumor early next month in [place]. 06/10: Doing well overall, no new complaints, [...] Went to Urgent care -> ER in [place] yesterday,CT with R hydro but no obstructive [...] He had infiltration last week, dialyzed at [facility] on Sat and went well, access [...] (09/23/20) Vascular Access Assessment: Type of access: [id number]/2019 Surgeon - Lary GARDNER Access working well [...]
--- OUTSIDE RECORDS SUMMARY | 2021-12-22 11:29 | XMS_ITS | Encounter Summary ---
:1945 Author Organization [facility] Address [address] [place] [address] Care Team Providers Name Role Phone Unavailable Primary Care Provider Unavailable Encounter Details Date Type Department Care Team Description 08/26/2020 Orders [facility] f Ernie Guzmán MD [phone] [place] [address] [place], [place] [phone] (Wo rk) Social History Tobacco Use [...] 08/27/2020 Unless otherwise specified, test(s) performed at: [facility], [address] [place] [address] PCU RN: Alec Payan M.D. For any questions, please call customer service at FREQUENCY:OTHER Resulting Agency Comment Specimen source: Blood Ernie Pompa MD LAB BLOOD ORDERABLES Performing Organization Address City/State/ZIP Code Phon e Number APS SPECTRA [facility] documented in this encounter Visit Diagnoses Not on filedocumented in this encounter
--- OUTSIDE RECORDS SUMMARY | 2021-12-22 11:29 | XMS_ITS | Encounter Summary ---
:1945 Author Organization [facility] Address [address] [place] [address] Care Team Providers Name Role Phone Unavailable Primary Care Provider Unavailable Encounter Details Date Type Department Care Team Description 09/30/2020 Orders [facility] f Ernie Guzmán MD [address] [place] [address] [place], [place] [phone] (Wo rk) Social History Tobacco Use [...] Provider LAB BLOOD ORDERABLES Performing Organization Address [facility] Code Phon e Number KAMERON (ABNORMAL) HEMATOLOGY [...] 10/02/2020 Unless otherwise specified, test(s) performed at: [facility], [address] [place], [place] [address] SIGN CARPENTER: Alec Payan M.D. For any questions, please call customer service at FREQUENCY:OTHER Resulting Agency Comment Specimen source: Blood Ernie Pompa MD LAB BLOOD ORDERABLES Performing Organization Address [facility] Phon e Number APS SPECTRA [facility] HD KINETICS (09/30/2020) P athologist Signature % Urea 77 65 - 80 % APS SPECTRA Reduction [facility] Specimen (Source) Anatomical Collection Method Collection Time Re ceived Time Location / / Volume Laterality 09/30/2020 10/01/2020 5:40 PM CDT Narrative APS SPECTRA [facility] - 10/01/2020 Unless otherwise specified, test(s) performed at: [facility], [address] [place] [address] SIGN CARPENTER: Alec Payan M.D. For any questions, please call customer service at FREQUENCY:OTHER Resulting Agency Comment Specimen source: Serum Ernie Pompa MD LAB BLOOD ORDERABLES Performing Organization Address [facility] Phon e Number APS SPECTRA [facility] (ABNORMAL) Spectrae Chemistry (09/30/2020) P athologist Signature BUN 44 (H) 6 - 19 APS SPECTRA mg/dL [facility] Specimen (Source) Anatomical Collection Method Collection Time Re ceived Time Location / / Volume Laterality 09/30/2020 10/01/2020 5:39 PM CDT Narrative APS SPECTRA [facility] - 10/01/2020 Unless otherwise specified, test(s) performed at: [facility], [address] [place] [address] SIGN CARPENTER: Alec Payan M.D. For any questions, please call customer service at FREQUENCY:OTHER Resulting Agency Comment Specimen source: Serum Ernie Pompa MD LAB BLOOD ORDERABLES Performing Organization Address City/[facility]/ZIP [facility] Phon e Number APS SPECTRA [facility] POST CHEMISTRY (09/30/2020) P athologist Signature BUN Post 10 6 - 19 APS SPECTRA Dialysis mg/dL [facility] Specimen (Source) Anatomical Collection Method Collection Time Re ceived Time Location / / Volume Laterality 09/30/2020 10/01/2020 12:4 3 PM CDT Narrative APS SPECTRA [facility] - 10/01/2020 Unless otherwise specified, test(s) performed at: [facility], [address] [place] [address] SIGN CARPENTER: Alec Payan M.D. For any questions, please call customer service at FREQUENCY:OTHER Resulting Agency Comment Specimen source: Plasma Ernie Pompa MD LAB BLOOD ORDERABLES Performing Organization Address City/[facility]/ZIP [facility] Phon e Number APS SPECTRA [facility] documented in this encounter Visit Diagnoses Not on filedocumented in this encounter
--- OUTSIDE RECORDS SUMMARY | 2021-12-22 11:29 | XMS_ITS | Encounter Summary ---
:1945 Author Organization [facility] Address [address] [place] [address] Care Team Providers Name Role Phone Unavailable Primary Care Provider Unavailable Encounter Details Date Type Department Care Team Description 09/23/2020 Treatment [facility] f Ernie Guzmán MD [address] [place] [address] [place], [place] [phone] (Wo rk) Social History Tobacco Use Types Packs/Day Years Used Date Smoking Tobacco: Unknown Comments: Smoking History Info:Patient n ot screened Sex Assigned at Date Recorded Not on file documented as of this encounter Miscellaneous Notes Dialysis Note - Ernie Pompa MD - 09/23/2020 10:44 AM CDT Date: Sep 23, 2020 Patient Name: Shaun Ocampo : 1945 Chart #: [id number] Sex: M This patient was personally seen [...] AM ) BP (sit): 103/52 AP(-) / APPLICATIONS CONSULTANT: 235/188 Pulse: 72 Chairside data as of [...] Every 2 weeks During Dialysis 09/16/2020 09/15/2021 SUBSTANCE ABUSE PREVENTION COORDINATOR: Ernie Pompa MD LOCATION: [phone] SCHEDULE: Aravind-- 2nd Shift EDW: kg. DIALYZER: [...] for ureteral ?tumor early next month in [place]. 06/10: Doing well overall, no new complaints, [...] Went to Urgent care -> ER in [place] yesterday,CT with R hydro but no obstructive [...] prescription. Vascular Access Assessment Type of access: [id number]/2019 Surgeon - Lary GARDNER Access working well [...] at goal. Intact PTH is above goal. Director Operations will adjust binders and vitamin D per [...]
--- OUTSIDE RECORDS SUMMARY | 2021-12-22 11:29 | XMS_ITS | Encounter Summary ---
:1945 Author Organization [facility] Address [address] [place] [address] Care Team Providers Name Role Phone Unavailable Primary Care Provider Unavailable Encounter Details Date Type Department Care Team Description 10/07/2020 Treatment [facility] f Ernie Guzmán MD [address] [place] [address] [place], [place] [phone] (Wo rk) Social History Tobacco Use Types Packs/Day Years Used Date Smoking Tobacco: Unknown Comments: Smoking History Info:Patient n ot screened Sex Assigned at Date Recorded Not on file documented as of this encounter Miscellaneous Notes Dialysis Note - Ernie Pompa MD - 10/07/2020 10:59 AM CDT Date: Oct 07, 2020 Patient Name: Shaun Ocampo : 1945 Chart #: [id number] Sex: M This patient was personally seen [...] AM ) BP (sit): 125/63 AP(-) / ACCOUNT REVIEW SPECIALIST: 232/178 Pulse: 70 Chairside data as of [...] Every 2 weeks During Dialysis 09/30/2020 09/29/2021 SHIP SCRAPER: Ernie Pompa MD LOCATION: [facility] [phone] SCHEDULE: M-W- 2nd Shift ACCESS: EDW: kg. [...] for ureteral ?tumor early next month in [place]. 06/10: Doing well overall, no new complaints, [...] Went to Urgent care -> ER in [place] yesterday,CT with R hydro but no obstructive [...] (07/22/20) Vascular Access Assessment: Type of access: [id number]/2019 Surgeon - Lary KUMARW Access working well [...]
--- OUTSIDE RECORDS SUMMARY | 2021-12-22 11:29 | XMS_ITS | Encounter Summary ---
:1945 Author Organization [facility] Address [address] [place] [address] Care Team Providers Name Role Phone Unavailable Primary Care Provider Unavailable Encounter Details Date Type Department Care Team Description 08/19/2020 Orders Only [facility] f Ernie Guzmán MD [address] [place] [address] [place], [place] [phone] (Wo rk) Social History Tobacco Use [...] 08/22/2020 Unless otherwise specified, test(s) performed at: [facility], [address] [place] [address] PHYSICAL THERAPIST CLINIC DIRECTOR: Alec Payan M.D. For any questions, please call customer service at FREQUENCY:MONTHLY Resulting Agency Comment Specimen source: Plasma Ernie Pompa MD LAB BLOOD ORDERABLES Performing Organization Address City/[facility] [address]/ZIP Code Phon e Number APS SPECTRA [facility] (ABNORMAL) Spectrae Chemistry (08/19/2020) [facility] Method Time Signature BUN [...] 08/22/2020 Unless otherwise specified, test(s) performed at: [facility], [address] [place] [address] PHYSICAL THERAPIST CLINIC DIRECTOR: Alec Payan M.D. For any questions, [...] 08/21/2020 Unless otherwise specified, test(s) performed at: [facility], [address] [place] [address] PHYSICAL THERAPIST CLINIC DIRECTOR: Alec Payan M.D. For any questions, please call customer service at FREQUENCY:MONTHLY Resulting Agency Comment Specimen source: Plasma Ernie Pompa MD LAB BLOOD ORDERABLES Performing Organization Address City/[facility] [address]/[facility] Phon e Number APS SPECTRA [...] 08/21/2020 Unless otherwise specified, test(s) performed at: [facility], [address] [place] [address] PHYSICAL THERAPIST CLINIC DIRECTOR: Alec Payan M.D. For any questions, please call customer service at FREQUENCY:MONTHLY Resulting Agency Comment Specimen source: Serum Ernie Pompa MD LAB BLOOD ORDERABLES Performing Organization Address [facility] [address]/[facility] Phon e Number APS SPECTRA [...] 08/21/2020 Unless otherwise specified, test(s) performed at: [facility], [address] [place] [address] PHYSICAL THERAPIST CLINIC DIRECTOR: Alec Payan M.D. For any questions, please call customer service at FREQUENCY:MONTHLY Resulting Agency Comment Specimen source: Blood Ernie Pompa MD LAB BLOOD ORDERABLES Performing Organization Address City/State/ZIP Code Phon e Number APS SPECTRA [facility] documented in this encounter Visit Diagnoses Not on filedocumented in this encounter
--- OUTSIDE RECORDS SUMMARY | 2021-12-22 11:29 | XMS_ITS | Encounter Summary ---
:1945 Author Organization [facility] Address [address] [place] [address] Care Team Providers Name Role Phone Unavailable Primary Care Provider Unavailable Encounter Details Date Type Department Care Team Description 01/13/2021 Treatment [facility] O Ernie Gómez MD [address] [place] [address] [place], [place] [phone] [phone] (Wo rk) Social History Tobacco Use Types Packs/Day Years Used Date Smoking Tobacco: Unknown Comments: Smoking History Info:Patient n ot screened Sex Assigned at Date Recorded Not on file documented as of this encounter Miscellaneous Notes Dialysis Note - Ernie Pompa MD - 01/13/2021 11:13 AM CDT Date: Jan 13, 2021 Patient Name: Shaun Ocampo : 1945 Chart #: [id number] Sex: M This patient was personally seen [...] AM ) BP (sit): 122/55 AP(-) / FIELD MARKETING REPRESENTATIVE: n/a Pulse: 70 Chairside data as of [...] 2.0 mcg ORAL Every Treatment 12/30/2020 12/29/2021 P 3 ARMAMENT/ORDNANCE IMA TECHNICIAN: Ernie Pompa MD LOCATION: [facility] [phone] SCHEDULE: -- 2nd Shift ACCESS: EDW: kg. [...] for ureteral ?tumor early next month in [place]. 06/10: Doing well overall, no new complaints, [...] Went to Urgent care -> ER in [place] yesterday,CT with R hydro but no obstructive [...] (10/21/20) Vascular Access Assessment: Type of access: [id number]/2019 Surgeon - Lary GARDNER Access working well [...]
--- OUTSIDE RECORDS SUMMARY | 2021-12-22 11:29 | XMS_ITS | Encounter Summary ---
:1945 Author Organization [facility] Address [address] [place] [address] Care Team Providers Name Role Phone Unavailable Primary Care Provider Unavailable Encounter Details Date Type Department Care Team Description 09/23/2020 Orders Only [facility] f Ernie Guzmán MD [address] [place] [address] [place], [place] [phone] (Wo rk) Social History Tobacco Use [...] 09/24/2020 Unless otherwise specified, test(s) performed at: [facility], [address] [place] [address] CORE DRILLER HELPER: Alec Payan M.D. For any questions, please call customer service at FREQUENCY:MONTHLY Resulting Agency Comment Specimen source: Plasma Ernie Pompa MD LAB BLOOD ORDERABLES Performing Organization Address City/[facility]/ZIP Code Phon e Number APS [...] 09/24/2020 Unless otherwise specified, test(s) performed at: [facility], [address] [place] [address] CORE DRILLER HELPER: Alec Payan M.D. For any questions, please call customer service at FREQUENCY:MONTHLY Resulting Agency Comment Specimen source: Blood Ernie Pompa MD LAB BLOOD ORDERABLES Performing Organization Address City/[facility] Phon [...] ES Performing Organization Address City/[facility]/ZIP Code Phon e Number APS [...] 09/24/2020 Unless otherwise specified, test(s) performed at: [facility], [address] [place] [address] CORE DRILLER HELPER: Alec Payan M.D. For any questions, please call customer service at FREQUENCY:MONTHLY Resulting Agency Comment Specimen source: Serum Ernie Pompa MD LAB BLOOD ORDERABLES Performing Organization Address City/State/ZIP Code Phon e Number APS SPECTRA [facility] documented in this encounter Visit Diagnoses Not on filedocumented in this encounter
--- OUTSIDE RECORDS SUMMARY | 2021-12-22 11:29 | XMS_ITS | Encounter Summary ---
:1945 Author Organization [facility] Address [address] [place] [address] Care Team Providers Name Role Phone Unavailable Primary Care Provider Unavailable Encounter Details Date Type Department Care Team Description 09/25/2020 Orders [facility] f Ernie Guzmán MD [address] [place] [address] [place], [place] [phone] (Wo rk) Social History Tobacco Use [...] 09/26/2020 Unless otherwise specified, test(s) performed at: [facility], [address] [place] [address] HOURLY SALES STAFF: Alec Payan M.D. For any questions, please call customer service at FREQUENCY:OTHER Resulting Agency Comment Specimen source: Serum Ernie Pompa MD LAB BLOOD ORDERABLES Performing Organization Address City/State/ZIP Code Phon e Number APS SPECTRA [facility] documented in this encounter Visit Diagnoses Not on filedocumented in this encounter
--- OUTSIDE RECORDS SUMMARY | 2021-12-22 11:29 | XMS_ITS | Encounter Summary ---
:1945 Author Organization [facility] Address [address] [place] [address] Care Team Providers Name Role Phone Unavailable Primary Care Provider Unavailable Encounter Details Date Type Department Care Team Description 12/30/2020 Orders [facility] f Ernie Guzmán MD [phone] [place] [address] [place], [place] [phone] (Wo rk) Social History Tobacco Use [...] 12/31/2020 Unless otherwise specified, test(s) performed at: [facility], [address] [place] [address] HOT STRIP FINISHER: Alec Payna M.D. For any questions, please call customer service at FREQUENCY:OTHER Resulting Agency Comment Specimen source: Blood Ernie Pompa MD LAB BLOOD ORDERABLES Performing Organization Address City/State/ZIP Code Phon e Number APS SPECTRA [facility] documented in this encounter Visit Diagnoses Not on filedocumented in this encounter
--- OUTSIDE RECORDS SUMMARY | 2021-12-22 11:29 | XMS_ITS | Encounter Summary ---
:1945 Author Organization [facility] Address [address] [place] [address] Care Team Providers Name Role Phone Unavailable Primary Care Provider Unavailable Encounter Details Date Type Department Care Team Description 10/21/2020 Treatment [facility] O Ernie Gómez MD [address] [place] [address] [place], [place] [phone] [phone] (Wo rk) Social History Tobacco Use Types Packs/Day Years Used Date Smoking Tobacco: Unknown Comments: Smoking History Info:Patient n ot screened Sex Assigned at Date Recorded Not on file documented as of this encounter Miscellaneous Notes Dialysis Note - Ernie Pompa MD - 10/21/2020 12:00 PM CDT Date: Oct 21, 2020 Patient Name: Shaun Ocampo : 1945 Chart #: [id number] Sex: M This patient was personally seen [...] Every 2 weeks During Dialysis 09/30/2020 09/29/2021 HIDE HOUSE SUPERVISOR: Ernie Pompa MD LOCATION: [phone] SCHEDULE: -W- 2nd Shift EDW: kg. DIALYZER: [...] for ureteral ?tumor early next month in [place]. 06/10: Doing well overall, no new complaints, [...] Went to Urgent care -> ER in [place] yesterday,CT with R hydro but no obstructive [...] prescription. Vascular Access Assessment Type of access: [id number]/2019 Surgeon - Lary KUMARW Access working well [...] at goal. Intact PTH is above goal. Pet Stylist will adjust binders and vitamin D per [...]
--- OUTSIDE RECORDS SUMMARY | 2021-12-22 11:29 | XMS_ITS | Encounter Summary ---
:1945 Author Organization [facility] Address [address] [place] [address] Care Team Providers Name Role Phone Unavailable Primary Care Provider Unavailable Encounter Details Date Type Department Care Team Description 12/30/2020 Treatment [facility] O Ernie Gómez MD [address] [place] [address] [place], [place] [phone] (Wo rk) Social History Tobacco Use Types Packs/Day Years Used Date Smoking Tobacco: Unknown Comments: Smoking History Info:Patient n ot screened Sex Assigned at Date Recorded Not on file documented as of this encounter Miscellaneous Notes Dialysis Note - Ernie Pompa MD - 12/30/2020 11:49 AM CDT Date: Dec 30, 2020 Patient Name: Shaun Ocampo : 1945 Chart #: [id number] Sex: M This patient was personally seen [...] AM ) BP (sit): 117/57 AP(-) / FORGING PRESS SETTER UP: 240/207 Pulse: 75 Chairside data as of [...] 2.0 mcg ORAL Every Treatment 12/30/2020 12/29/2021 MEDICARE NURSE: Ernie Pompa MD LOCATION: [facility] [phone] SCHEDULE: -- 2nd Shift EDW: kg. DIALYZER: [...] for ureteral ?tumor early next month in [place]. 06/10: Doing well overall, no new complaints, [...] Went to Urgent care -> ER in [place] yesterday,CT with R hydro but no obstructive [...] prescription. Vascular Access Assessment Type of access: [id number]/2019 Surgeon Annita GARDNER Access working well Anemia [...] at goal. Intact PTH is at goal. Pattern Changer And Repairer will adjust binders and vitamin D [...]
--- OUTSIDE RECORDS SUMMARY | 2021-12-22 11:29 | XMS_ITS | Encounter Summary ---
:1945 Author Organization [facility] Address [address] [place] [address] Care Team Providers Name Role Phone Unavailable Primary Care Provider Unavailable Encounter Details Date Type Department Care Team Description 01/13/2021 Orders Only [facility] f Ernie Guzmán MD [address] [place] [address] [place], [place] [phone] (Wo rk) Social History Tobacco Use [...] 01/14/2021 Unless otherwise specified, test(s) performed at: [facility] [address] [place] [address] PHOTOGRAMMETRIC SURVEYOR: Alec Payan M.D. For any questions, please call customer service at FREQUENCY:OTHER Resulting Agency Comment Specimen source: Blood Ernie Pompa MD LAB BLOOD ORDERABLES Performing Organization Address City/State/ZIP Code Phon e Number APS SPECTRA [facility] documented in this encounter Visit Diagnoses Not on filedocumented in this encounter
--- OUTSIDE RECORDS SUMMARY | 2021-12-22 11:29 | XMS_ITS | Encounter Summary ---
:1945 Author Organization [facility] Address [address] [place] [address] Care Team Providers Name Role Phone Unavailable Primary Care Provider Unavailable Encounter Details Date Type Department Care Team Description 10/21/2020 [facility] O f Ernie Guzmán MD [phone] [place] [address] [place], [place] [phone] (Wo rk) Social History Tobacco Use [...] ORDERABLES Performing Organization Address City/[facility]/ZIP Code Phon e Number KAMERON IMMUNO CHEMISTRY (10/21/2020) athologist Signature Hep B Surface Negative Negative APS SPECTRA Ag [facility] Specimen (Source) Anatomical Collection Method Collection Time Re ceived Time Location / / Volume Laterality 10/21/2020 10/22/2020 9:40 PM CDT Narrative APS SPECTRA [facility] - 10/23/2020 Unless otherwise specified, test(s) performed at: [facility], [address] [place], [place] [id number] WOUND CARE CENTER CONSULTANT: Alec Payan M.D. For any questions, please call customer service at FREQUENCY:MONTHLY Resulting Agency Comment Specimen source: Serum Ernie Pompa MD LAB BLOOD ORDERABLES Performing Organization Address [facility] Phon e Number APS SPECTRA [facility] (ABNORMAL) Spectrae Chemistry (10/21/2020) athologist [facility] PTH 785 (H) 16 - 80 APS SPECTRA pg/mL [facility] Specimen (Source) Anatomical Collection Method Collection Time Re ceived Time Location / / Volume Laterality 10/21/2020 10/22/2020 8:05 PM CDT Narrative APS SPECTRA [facility] - 10/23/2020 Unless otherwise specified, test(s) performed at: [facility], [address] [place] [address] WOUND CARE CENTER CONSULTANT: Alec Payan M.D. For any questions, please call customer service at FREQUENCY:MONTHLY Resulting Agency Comment Specimen source: Plasma Ernie Pompa MD LAB BLOOD ORDERABLES Performing Organization Address City/[facility] Phon e Number APS SPECTRA [facility] HD KINETICS (10/21/2020) athologist Signature % Urea 76 65 - 80 % APS SPECTRA Reduction [facility] Specimen (Source) Anatomical Collection Method Collection Time Re ceived Time Location / / Volume Laterality 10/21/2020 10/22/2020 9:40 PM CDT Narrative APS SPECTRA [facility] - 10/23/2020 Unless otherwise specified, test(s) performed at: [facility], [address] [place] [address] WOUND CARE CENTER CONSULTANT: Alec Payan M.D. For any questions, please call customer service at FREQUENCY:MONTHLY Resulting Agency Comment Specimen source: Serum Ernie Pompa MD LAB BLOOD ORDERABLES Performing Organization Address City/State/ZIP Code Phon e Number APS SPECTRA [facility] (ABNORMAL) Spectrae Chemistry (10/21/2020) [facility] gist Method Time Signature BUN 45 [...] 10/23/2020 Unless otherwise specified, test(s) performed at: [facility], [address] [place] [address] WOUND CARE CENTER CONSULTANT: Alec Payan M.D. For any questions, [...] 10/23/2020 Unless otherwise specified, test(s) performed at: [facility], [address] [place] [address] WOUND CARE CENTER CONSULTANT: Alec Payan M.D. For any questions, [...] 10/22/2020 Unless otherwise specified, test(s) performed at: [facility], [address] [place] [address] WOUND CARE CENTER CONSULTANT: Alec Payan M.D. For any questions, please call customer service at FREQUENCY:MONTHLY Resulting Agency Comment Specimen source: Plasma Ernie Pompa MD LAB BLOOD ORDERABLES Performing Organization Address City/State/[facility] Code Phon e Number APS SPECTRA [facility] documented in this encounter Visit Diagnoses Not on filedocumented in this encounter
--- OUTSIDE RECORDS SUMMARY | 2021-12-22 11:29 | XMS_ITS | Encounter Summary ---
:1945 Author Organization [facility] Address [address] [place] [address] Care Team Providers Name Role Phone Unavailable Primary Care Provider Unavailable Encounter Details Date Type Department Care Team Description 12/23/2020 [facility] Only [facility] O f Ernie Guzmán MD [phone] [place] [address] [place], [place] [phone] (Wo rk) Social History Tobacco Use [...] [facility]/ZIP Code Phon e Number KAMERON HD KINETICS (12/23/2020) P athologist Signature % Urea 75 65 - 80 % APS SPECTRA Reduction [facility] Specimen (Source) Anatomical Collection Method Collection Time Re ceived Time Location / / Volume Laterality 12/23/2020 12/24/2020 8:52 PM CDT Narrative APS SPECTRA [facility] - 12/25/2020 Unless otherwise specified, test(s) performed at: [facility], [address] [place], [place] [id number] FREIGHT ENGINEER: Alec Payan M.D. For any questions, please call customer service at FREQUENCY:MONTHLY Resulting Agency Comment Specimen source: Serum Ernie Pompa MD LAB BLOOD ORDERABLES Performing Organization Address [facility] Phon e Number APS SPECTRA [facility] IMMUNO CHEMISTRY (12/23/2020) P athologist Signature Hep B Surface Negative Negative APS SPECTRA Ag [facility] Specimen (Source) Anatomical Collection Method Collection Time Re ceived Time Location / / Volume Laterality 12/23/2020 12/24/2020 8:51 PM CDT Narrative APS SPECTRA [facility] - 12/25/2020 Unless otherwise specified, test(s) performed at: [facility], [address] [place] [address] FREIGHT ENGINEER: Alec Payan M.D. For any questions, please call customer service at FREQUENCY:MONTHLY Resulting Agency Comment Specimen source: Serum Ernie Pompa MD LAB BLOOD ORDERABLES Performing Organization Address City/[facility] Code Phon e Number APS [...] 12/25/2020 Unless otherwise specified, test(s) performed at: [facility], [address] [place] [address] FREIGHT ENGINEER: Alec Payan M.D. For any questions, [...] 12/25/2020 Unless otherwise specified, test(s) performed at: [facility], [address] [place] [address] FREIGHT ENGINEER: Alec Payan M.D. For any questions, please call customer service at FREQUENCY:MONTHLY Resulting Agency Comment Specimen source: Plasma Ernie Pompa MD LAB BLOOD ORDERABLES Performing Organization Address City/[facility] Phon e Number APS SPECTRA [facility] POST CHEMISTRY (12/23/2020) P athologist Signature BUN Post 11 6 - 19 APS SPECTRA Dialysis mg/dL [facility] Specimen (Source) Anatomical Collection Method Collection Time Re ceived Time Location / / Volume Laterality 12/23/2020 12/24/2020 3:54 PM CDT Narrative APS SPECTRA [facility] - 12/24/2020 Unless otherwise specified, test(s) performed at: [facility], [address] [place] [address] FREIGHT ENGINEER: Alec Payan M.D. For any questions, please call customer service at FREQUENCY:MONTHLY Resulting Agency Comment Specimen source: Plasma Ernie Pompa MD LAB BLOOD ORDERABLES Performing Organization Address City/[facility]/ZIP Code Phon e Number APS SPECTRA [...] 12/24/2020 Unless otherwise specified, test(s) performed at: [facility], [address] [place] [address] FREIGHT ENGINEER: Alec Payan M.D. For any questions, please call customer service at FREQUENCY:MONTHLY Resulting Agency Comment Specimen source: Blood Ernie Pompa MD LAB BLOOD ORDERABLES Performing Organization Address City/State/ZIP Code Phon e Number APS SPECTRA [facility] documented in this encounter Visit Diagnoses Not on filedocumented in this encounter
--- OUTSIDE RECORDS SUMMARY | 2021-12-22 11:29 | XMS_ITS | Encounter Summary ---
:1945 Author Organization [facility] Address [address] [place] [address] Care Team Providers Name Role Phone Unavailable Primary Care Provider Unavailable Encounter Details Date Type Department Care Team Description 11/11/2020 Treatment [facility] f Ernie Guzmán MD [address] [place] [address] [place], [place] [phone] (Wo rk) Social History Tobacco Use Types Packs/Day Years Used Date Smoking Tobacco: Unknown Comments: Smoking History Info:Patient n ot screened Sex Assigned at Date Recorded Not on file documented as of this encounter Miscellaneous Notes Dialysis Note - Ernie Pompa MD - 11/11/2020 9:40 AM CDT Date: Nov 11, 2020 Patient Name: Shaun Ocampo : 1945 Chart #: [id number] Sex: M This patient was personally seen [...] AM ) BP (sit): 128/53 AP(-) / DROP WIRE STRINGER: 223/184 Pulse: 75 Chairside data as of [...] 08/21/2020 Access Flow > 2000 [id number] PLANT AND MACHINERY VALUER: Ernie Pompa MD LOCATION: [place] [phone] SCHEDULE: -W- 2nd Shift ACCESS: EDW: kg. [...] ureteral ?tumor early next month in [place]. 06/10: Doing well overall, no new complaints, [...] Went to Urgent care -> ER in [place] yesterday,CT with R hydro but no obstructive [...] (08/19/20) Vascular Access Assessment: Type of access: [id number] Surgeon - Lary GARDNER Access working well [...]
--- OUTSIDE RECORDS SUMMARY | 2021-12-22 11:29 | XMS_ITS | Encounter Summary ---
:1945 Author Organization [facility] Address [address] [place] [address] Care Team Providers Name Role Phone Unavailable Primary Care Provider Unavailable Encounter Details Date Type Department Care Team Description 01/06/2021 [facility] Only [facility] O f Ernie Guzmán MD [address] [place] [address] [place], [place] [phone] (Wo rk) Social History Tobacco Use [...] 01/07/2021 Unless otherwise specified, test(s) performed at: [facility], [address] [place] [address] FEED AND FARM MANAGEMENT ADVISER: Alec Payan M.D. For any questions, please call customer service at FREQUENCY:OTHER Resulting Agency Comment Specimen source: Blood Ernie Pompa MD LAB BLOOD ORDERABLES Performing Organization Address City/State/ZIP Code Phon e Number APS SPECTRA [facility] documented in this encounter Visit Diagnoses Not on filedocumented in this encounter
--- OUTSIDE RECORDS SUMMARY | 2021-12-22 11:29 | XMS_ITS | Encounter Summary ---
:1945 Author Organization [facility] Address [address] [place] [address] Care Team Providers Name Role Phone Unavailable Primary Care Provider Unavailable Encounter Details Date Type Department Care Team Description 12/16/2020 [facility] O f Ernie Guzmán MD [address] [place] [address] [place], [place] [phone] (Wo rk) Social History Tobacco Use [...] 12/17/2020 Unless otherwise specified, test(s) performed at: [facility], [address] [place] [address] SEMICONDUCTOR PACKAGES PLATEMAKER: Alec Payan M.D. For any questions, please call customer service at FREQUENCY:OTHER Resulting Agency Comment Specimen source: Blood Ernie Pompa MD LAB BLOOD ORDERABLES Performing Organization Address City/State/ZIP Code Phon e Number APS SPECTRA [facility] documented in this encounter Visit Diagnoses Not on filedocumented in this encounter
--- OUTSIDE RECORDS SUMMARY | 2021-12-22 11:29 | XMS_ITS | Encounter Summary ---
:1945 Author Organization [facility] Address [address] [place] [address] Care Team Providers Name Role Phone Unavailable Primary Care Provider Unavailable Encounter Details Date Type Department Care Team Description 10/07/2020 [facility] O f Ernie Guzmán MD [address] [place] [address] [place], [place] [phone] (Wo rk) Social History Tobacco Use [...] 10/09/2020 Unless otherwise specified, test(s) performed at: [facility], [address] [place] [address] POWER GENERATION TECHNICIAN: Alec Payan M.D. For any questions, please call customer service at FREQUENCY:OTHER Resulting Agency Comment Specimen source: Blood Ernie Pompa MD LAB BLOOD ORDERABLES Performing Organization Address City/State/ZIP Code Phon e Number APS SPECTRA [facility] documented in this encounter Visit Diagnoses Not on filedocumented in this encounter
--- OUTSIDE RECORDS SUMMARY | 2021-12-22 11:29 | XMS_ITS | Encounter Summary ---
:1945 Author Organization [facility] Address [address] [place] [address] Care Team Providers Name Role Phone Unavailable Primary Care Provider Unavailable Encounter Details Date Type Department Care Team Description 01/20/2021 Treatment [facility] O Ernie Gómez MD [address] [place] [address] [place], [place] [phone] [phone] (Wo rk) Social History Tobacco Use Types Packs/Day Years Used Date Smoking Tobacco: Unknown Comments: Smoking History Info:Patient n ot screened Sex Assigned at Date Recorded Not on file documented as of this encounter Miscellaneous Notes Dialysis Note - Ernie Pompa MD - 01/20/2021 9:46 AM CDT Date: Jan 20, 2021 Patient Name: Shaun Ocampo : 1945 Chart #: [id number] Sex: M This patient was personally seen [...] 2.0 mcg ORAL Every Treatment 12/30/2020 12/29/2021 REPAIRER ART OBJECTS: Ernie Pompa MD LOCATION: [place] [phone] SCHEDULE: -- 2nd Shift EDW: kg. DIALYZER: [...] ureteral ?tumor early next month in [place]. 06/10: Doing well overall, no new complaints, [...] Went to Urgent care -> ER in [place] yesterday,CT with R hydro but no obstructive [...] He had infiltration last week, dialyzed at [facility] on Sat and went well, [...] prescription. Vascular Access Assessment Type of access: [id number]/2019 Surgeon Annita KUMARW Access working well Anemia [...] at goal. Intact PTH is at goal. Salt Grinder will adjust binders and vitamin D per [...]
--- OUTSIDE RECORDS SUMMARY | 2021-12-22 11:29 | XMS_ITS | Encounter Summary ---
:1945 Author Organization [facility] Address [address] [place] [address] Care Team Providers Name Role Phone Unavailable Primary Care Provider Unavailable Encounter Details Date Type Department Care Team Description 12/02/2020 Orders Only [facility] O f Ernie Guzmán MD [address] [place] [address] [place], [place] [phone] (Wo rk) Social History Tobacco Use [...] 12/03/2020 Unless otherwise specified, test(s) performed at: [facility], [address] [place] [address] POWER SYSTEM DISPATCHER: Alec Payan M.D. For any questions, please call customer service at FREQUENCY:OTHER Resulting Agency Comment Specimen source: Blood Ernie Pompa MD LAB BLOOD ORDERABLES Performing Organization Address City/State/ZIP Code Phon e Number APS SPECTRA [facility] documented in this encounter Visit Diagnoses Not on filedocumented in this encounter
--- OUTSIDE RECORDS SUMMARY | 2021-12-22 11:29 | XMS_ITS | Encounter Summary ---
:1945 Author Organization [facility] Address [address] [place] [address] Care Team Providers Name Role Phone Unavailable Primary Care Provider Unavailable Encounter Details Date Type Department Care Team Description 01/20/2021 Orders Only [facility] O f Ernie Guzmán MD [address] [place] [address] [place], [place] [phone] (Wo rk) Social History Tobacco Use [...] 66.84 KAMERON nPCR_HD 1.01 KAMERON spKt/V 1.80 KMAERON (Daugirdas II) eKt/V 1.57 KAMERON ([place]) eKt/V [...] 01/22/2021 Unless otherwise specified, test(s) performed at: [facility], [address] [place] [address] PROFESSIONAL FEE CODER: Alec Payan M.D. For any questions, please [...] 01/22/2021 Unless otherwise specified, test(s) performed at: [facility], [address] [place] [address] PROFESSIONAL FEE CODER: Alec Payan M.D. For any questions, please call customer service at FREQUENCY:MONTHLY Resulting Agency Comment Specimen source: Serum Ernie Pompa MD LAB BLOOD ORDERABLES Performing Organization Address City/[facility] Phon e Number APS SPECTRA [facility] IMMUNO CHEMISTRY (01/20/2021) P athologist Signature Hep B Surface Negative Negative APS SPECTRA Ag [facility] Specimen (Source) Anatomical Collection Method Collection Time Re ceived Time Location / / Volume Laterality 01/20/2021 01/21/2021 8:41 PM CDT Narrative APS SPECTRA [facility] - 01/21/2021 Unless otherwise specified, test(s) performed at: [facility], [address] [place] [address] PROFESSIONAL FEE CODER: Alec Payan M.D. For any questions, please call customer service at FREQUENCY:MONTHLY Resulting Agency Comment Specimen source: Serum Ernie Pompa MD LAB BLOOD ORDERABLES Performing Organization Address City/[facility] Phon e Number APS SPECTRA [facility] POST CHEMISTRY (01/20/2021) P athologist Signature BUN Post 11 6 - 19 APS SPECTRA Dialysis mg/dL [facility] Specimen (Source) Anatomical Collection Method Collection Time Re ceived Time Location / / Volume Laterality 01/20/2021 01/21/2021 10:5 1 AM CDT Narrative APS SPECTRA [facility] - 01/21/2021 Unless otherwise specified, test(s) performed at: [facility], [address] [place] [address] PROFESSIONAL FEE CODER: Alec Payan M.D. For any questions, please [...] 01/21/2021 Unless otherwise specified, test(s) performed at: [facility], [address] [place] [address] PROFESSIONAL FEE CODER: Alec Payan M.D. For any questions, please [...] 01/21/2021 Unless otherwise specified, test(s) performed at: [facility], [address] [place] [address] PROFESSIONAL FEE CODER: Alec Payan M.D. For any questions, please call customer service at FREQUENCY:MONTHLY Resulting Agency Comment Specimen source: Plasma Ernie Pompa MD LAB BLOOD ORDERABLES Performing Organization Address City/State/ZIP Code Phon e Number APS SPECTRA [facility] documented in this encounter Visit Diagnoses Not on filedocumented in this encounter
--- OUTSIDE RECORDS SUMMARY | 2021-12-22 11:30 | XMS_ITS | Encounter Summary ---
:1945 Author Organization [facility] Address [address] [place] [address] Care Team Providers Name Role Phone Unavailable Primary Care Provider Unavailable Encounter Details Date Type Department Care Team Description 06/17/2020 Orders Only [facility] O f Ernie Guzmán MD [address] [place] [address] [place], [place] [phone] (Wo rk) Social History Tobacco Use [...] 06/18/2020 Unless otherwise specified, test(s) performed at: [facility], [address] [place] [address] SPINDLE FRAME CARVER: Alec Payan M.D. For any questions, please call customer service at FREQUENCY:OTHER Resulting Agency Comment Specimen source: Blood rEnie Pompa MD LAB BLOOD ORDERABLES Performing Organization Address City/State/ZIP Code Phon e Number APS SPECTRA [facility] documented in this encounter Visit Diagnoses Not on filedocumented in this encounter
--- OUTSIDE RECORDS SUMMARY | 2021-12-22 11:30 | XMS_ITS | Encounter Summary ---
:1945 Author Organization [facility] Address [address] [place] [address] Care Team Providers Name Role Phone Unavailable Primary Care Provider Unavailable Encounter Details Date Type Department Care Team Description 07/29/2020 Orders [facility] O f Ernie Guzmán MD [address] [place] [address] [place], [place] [phone] (Wo rk) Social History Tobacco Use [...] 07/30/2020 Unless otherwise specified, test(s) performed at: [facility], [address] [place] [address] SUGAR PLANTATION MANAGER: Alec Payan M.D. For any questions, please call customer service at FREQUENCY:OTHER Resulting Agency Comment Specimen source: Blood Ernie Pompa MD LAB BLOOD ORDERABLES Performing Organization Address City/State/ZIP Code Phon e Number APS SPECTRA [facility] documented in this encounter Visit Diagnoses Not on filedocumented in this encounter
--- OUTSIDE RECORDS SUMMARY | 2021-12-22 11:30 | XMS_ITS | Encounter Summary ---
:1945 Author Organization [facility] Address [address] [place] [address] Care Team Providers Name Role Phone Unavailable Primary Care Provider Unavailable Encounter Details Date Type Department Care Team Description 05/06/2020 Orders Only [facility] O f Ernie Guzmán MD [address] [place] [address] [place], [place] [phone] (Wo rk) Social History Tobacco Use [...] / Volume Laterality 05/06/2020 05/07/2020 2:32 PM TILE MACHINE OPERATOR Narrative APS SPECTRA [facility] - 05/07/2020 Unless otherwise specified, test(s) performed at: [facility], [address] [place] [address] COMPANY PILOT: Alec Payan M.D. For any questions, please call customer service at FREQUENCY:OTHER Resulting Agency Comment Specimen source: Blood Ernie Pompa MD LAB BLOOD ORDERABLES Performing Organization Address City/State/ZIP Code Phon e Number APS SPECTRA [facility] documented in this encounter Visit Diagnoses Not on filedocumented in this encounter
--- OUTSIDE RECORDS SUMMARY | 2021-12-22 11:30 | XMS_ITS | Encounter Summary ---
:1945 Author Organization [facility] Address [address] [place] [address] Care Team Providers Name Role Phone Unavailable Primary Care Provider Unavailable Encounter Details Date Type Department Care Team Description 05/20/2020 Orders Only [facility] O f Ernie Guzmán MD [phone] [place] [address] [place], [place] [phone] (Wo rk) Social History Tobacco Use [...] Volume Laterality 05/20/2020 05/21/2020 10:4 9 PM LOOM CHANGER Resulting Agency Comment Specimen source: Plasma Ernie Pompa MD LAB BLOOD ORDERABLES Performing Organization Address City/[facility]/ZIP Code Phon e Number APS SPECTRA [facility] POST CHEMISTRY (05/20/2020) athologist Signature BUN Post 12 6 - 19 APS SPECTRA Dialysis mg/dL [facility] Specimen (Source) Anatomical Collection Method Collection Time Re ceived Time Location / / Volume Laterality 05/20/2020 05/21/2020 10:4 8 PM LOOM CHANGER Narrative APS SPECTRA [facility] - 05/22/2020 Unless otherwise specified, test(s) performed at: [facility], [address] [place] [address] CORDWAINER: Alec Payan M.D. For any questions, please call customer service at FREQUENCY:MONTHLY Resulting Agency Comment Specimen source: Plasma Ernie Pompa MD LAB BLOOD ORDERABLES Performing Organization Address City/[facility]/ZIP Code Phon e Number APS SPECTRA [facility] IMMUNO CHEMISTRY (05/20/2020) athologist Signature Hep B Surface Negative Negative APS SPECTRA Ag [facility] Specimen (Source) Anatomical Collection Method Collection Time Re ceived Time Location / / Volume Laterality 05/20/2020 05/21/2020 6:17 PM LOOM CHANGER Narrative APS SPECTRA [facility] - 05/22/2020 Unless otherwise specified, test(s) performed at: [facility], [address] [place] [address] CORDWAINER: Alec Payan M.D. For any questions, please [...] / Volume Laterality 05/20/2020 05/21/2020 4:04 PM LOOM CHANGER Narrative APS SPECTRA [facility] - 05/22/2020 Unless otherwise specified, test(s) performed at: [place] [address] CORDWAINER: Alec Payan M.D. For any questions, please [...] / Volume Laterality 05/20/2020 05/21/2020 4:04 PM LOOM CHANGER Narrative APS SPECTRA [facility] - 05/22/2020 Unless otherwise specified, test(s) performed at: [facility], [address] [place] [address] CORDWAINER: Alec Payan M.D. For any questions, please call customer service at FREQUENCY:MONTHLY Resulting Agency Comment Specimen source: Blood Ernie Pompa MD LAB BLOOD ORDERABLES Performing Organization Address City/State/ZIP Code Phon e Number APS SPECTRA [facility] (ABNORMAL) Spectrae Chemistry (05/20/2020) [facility] gist Method Time Signature BUN 56 [...] / Volume Laterality 05/20/2020 05/21/2020 6:17 PM LOOM CHANGER Narrative APS SPECTRA [facility] - 05/21/2020 Unless otherwise specified, test(s) performed at: [facility], [address] [place] [address] CORDWAINER: Alec Payan M.D. For any questions, please call customer service at FREQUENCY:MONTHLY Resulting Agency Comment Specimen source: Serum Ernie Pompa MD LAB BLOOD ORDERABLES Performing Organization Address City/State/ZIP Code Phon e Number APS SPECTRA [facility] documented in this encounter Visit Diagnoses Not on filedocumented in this encounter
--- OUTSIDE RECORDS SUMMARY | 2021-12-22 11:30 | XMS_ITS | Encounter Summary ---
:1945 Author Organization [facility] Address [address] [place] [address] Care Team Providers Name Role Phone Unavailable Primary Care Provider Unavailable Encounter Details Date Type Department Care Team Description 03/25/2020 Orders Only [facility] O f Ernie Guzmán MD [phone] [place] [address] [place], [place] [phone] (Wo rk) Social History Tobacco Use [...] Volume Laterality 03/25/2020 03/27/2020 11:1 6 AM RIVERBOAT CAPTAIN Narrative APS SPECTRA [facility] - 03/30/2020 Unless otherwise specified, test(s) performed at: [facility], [address] [place] [address] EDGE GLUER: Alec Payan M.D. For any questions, please [...] and its performa nce characteristics determined by [facility]. It has not been cleared or approved by the FDA. The laboratory is regulated under CLIA a s qualified to perform high complexity testing. This test is used fo r clinical purposes. It should not be regarded as investigational or fo r research. Specimen (Source) Anatomical Collection Method Collection Time Re ceived Time Location / / Volume Laterality 03/25/2020 03/26/2020 6:29 PM RIVERBOAT CAPTAIN Narrative APS SPECTRA [facility] - 03/28/2020 Unless otherwise specified, test(s) performed at: [facility], [address] [place], [place] [id number] EDGE GLUER: Alec Payan M.D. For any questions, please call customer service at FREQUENCY:MONTHLY Resulting Agency Comment Specimen source: Serum Ernie Pompa MD LAB BLOOD ORDERABLES Performing Organization Address City/[facility]/ZIP Code Phon e Number APS SPECTRA [facility] IMMUNO CHEMISTRY (03/25/2020) P athologist Signature Hep B Surface Negative Negative APS SPECTRA Ag [facility] Specimen (Source) Anatomical Collection Method Collection Time Re ceived Time Location / / Volume Laterality 03/25/2020 03/27/2020 11:1 6 AM RIVERBOAT CAPTAIN Resulting Agency Comment Specimen source: Serum Ernie Leimario CAMPBELL LAB BLOOD ORDERABLES Performing Organization Address City/[facility]/ZIP Code Phon e Number APS SPECTRA [facility] HD KINETICS (03/25/2020) P athologist Signature % Urea 79 65 - 80 % APS SPECTRA Reduction [facility] Specimen (Source) Anatomical Collection Method Collection Time Re ceived Time Location / / Volume Laterality 03/25/2020 03/27/2020 11:1 7 AM RIVERBOAT CAPTAIN Resulting Agency Comment Specimen source: Serum Ernie Leimario CAMPBELL LAB BLOOD ORDERABLES Performing Organization Address City/[facility]/ZIP Code Phon e Number APS SPECTRA [facility] POST CHEMISTRY (03/25/2020) P athologist Signature BUN Post 12 6 - 19 APS SPECTRA Dialysis mg/dL [facility] Specimen (Source) Anatomical Collection Method Collection Time Re ceived Time Location / / Volume Laterality 03/25/2020 03/27/2020 10:5 5 AM RIVERBOAT CAPTAIN Narrative APS SPECTRA [facility] - 03/27/2020 Unless otherwise specified, test(s) performed at: [facility], [address] [place] [address] EDGE GLUER: Alec Payan M.D. For any questions, please call customer service at FREQUENCY:MONTHLY Resulting Agency Comment Specimen source: Plasma Ernie Pompa MD LAB BLOOD ORDERABLES Performing Organization Address City/State/ZIP Code Phon e Number APS SPECTRA [facility] (ABNORMAL) Spectrae Chemistry (03/25/2020) [facility] Method Time Signature BUN 58 (H) [...] Volume Laterality 03/25/2020 03/27/2020 11:1 6 AM RIVERBOAT CAPTAIN Narrative APS SPECTRA [facility] - 03/28/2020 Unless otherwise specified, test(s) performed at: [facility], [address] [place] [address] EDGE GLUER: Alec Payan M.D. For any questions, please call customer service at FREQUENCY:MONTHLY Resulting Agency Comment Specimen source: Serum Ernie Pompa MD LAB BLOOD ORDERABLES Performing Organization Address City/[facility] Phon e Number APS SPECTRA [facility] (ABNORMAL) Spectrae Chemistry (03/25/2020) P athologist Signature PTH 828 (H) 16 - 80 APS SPECTRA pg/mL [facility] Specimen (Source) Anatomical Collection Method Collection Time Re ceived Time Location / / Volume Laterality 03/25/2020 03/26/2020 5:05 PM RIVERBOAT CAPTAIN Narrative APS SPECTRA [facility] - 03/27/2020 Unless otherwise specified, test(s) performed at: [facility], [address] [place] [address] EDGE GLUER: Alec Payan M.D. For any questions, please call customer service at FREQUENCY:MONTHLY Resulting Agency Comment Specimen source: Plasma Ernie Pompa MD LAB BLOOD ORDERABLES Performing Organization Address City/[facility] Phon e Number APS [...] / Volume Laterality 03/25/2020 03/26/2020 5:05 PM RIVERBOAT CAPTAIN Narrative APS SPECTRA [facility] - 03/26/2020 Unless otherwise specified, test(s) performed at: [facility], [address] [place] [address] EDGE GLUER: Alec Payan M.D. For any questions, please call customer service at FREQUENCY:MONTHLY Resulting Agency Comment Specimen source: Blood Ernie Pompa MD LAB BLOOD ORDERABLES Performing Organization Address City/State/ZIP Code Phon e Number APS SPECTRA [facility] documented in this encounter Visit Diagnoses Not on filedocumented in this encounter
--- OUTSIDE RECORDS SUMMARY | 2021-12-22 11:30 | XMS_ITS | Encounter Summary ---
:1945 Author Organization [facility] Address [address] [place] [address] Care Team Providers Name Role Phone Unavailable Primary Care Provider Unavailable Encounter Details Date Type Department Care Team Description 06/03/2020 Orders Only [facility] O f Ernie Guzmán MD [phone] [place] [address] [place], [place] [phone] (Wo rk) Social History Tobacco Use [...] 06/04/2020 Unless otherwise specified, test(s) performed at: [facility], [address] [place] [address] DAIRY MACHINE OPERATOR FARMWORKER: Alec Payan M.D. For any questions, please call customer service at FREQUENCY:OTHER Resulting Agency Comment Specimen source: Blood Ernie Pompa MD LAB BLOOD ORDERABLES Performing Organization Address City/State/ZIP Code Phon e Number APS SPECTRA [facility] documented in this encounter Visit Diagnoses Not on filedocumented in this encounter
--- OUTSIDE RECORDS SUMMARY | 2021-12-22 11:30 | XMS_ITS | Encounter Summary ---
:1945 Author Organization [facility] Address [address] [place] [address] Care Team Providers Name Role Phone Unavailable Primary Care Provider Unavailable Encounter Details Date Type Department Care Team Description 08/19/2020 Treatment [facility] f Ernie Guzmán MD [address] [place] [address] [place], [place] [address] [phone] (Wo rk) Social History Tobacco Use Types Packs/Day Years Used Date Smoking Tobacco: Unknown Comments: Smoking History Info:Patient n ot screened Sex Assigned at Date Recorded Not on file documented as of this encounter Miscellaneous Notes Dialysis Note - Ernie Pompa MD - 08/19/2020 12:37 PM CDT Date: Aug 19, 2020 Patient Name: Shaun Ocampo : 1945 Chart #: [id number] Sex: M This patient was personally seen [...] PM ) BP (sit): 110/40 AP(-) / EMPLOYMENT TRAINER: 250/194 Pulse: 67 Chairside data as of [...] Every 4 weeks During Dialysis 08/19/2020 08/18/2021 HARNESS RACING HANDICAPPER: Ernie Pompa MD LOCATION: [phone] SCHEDULE: M-W- 2nd Shift EDW: kg. 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 06/10: Doing well overall, no new complaints, [...] Went to Urgent care -> ER in [place] yesterday,CT with R hydro but no obstructive [...] prescription. Vascular Access Assessment Type of access: [id number]/2019 Surgeon - Lary GARDNER Access working well [...] above goal. Intact PTH is above goal. Food Supervisor will adjust binders and vitamin D [...]
--- OUTSIDE RECORDS SUMMARY | 2021-12-22 11:30 | XMS_ITS | Encounter Summary ---
:1945 Author Organization [facility] Address [address] [place] [address] Care Team Providers Name Role Phone Unavailable Primary Care Provider Unavailable Encounter Details Date Type Department Care Team Description 04/01/2020 Orders Only [facility] O f Ernie Guzmán MD [address] [place] [address] [place], [place] [phone] (Wo rk) Social History Tobacco Use [...] / Volume Laterality 04/01/2020 04/02/2020 2:28 PM METER READER Narrative APS SPECTRA [facility] - 04/02/2020 Unless otherwise specified, test(s) performed at: [facility], [address] [place] [address] LEARNING SPECIALIST: Alec Payan M.D. For any questions, please call customer service at FREQUENCY:OTHER Resulting Agency Comment Specimen source: Blood Ernie Pompa MD LAB BLOOD ORDERABLES Performing Organization Address City/State/ZIP Code Phon e Number APS SPECTRA [facility] documented in this encounter Visit Diagnoses Not on filedocumented in this encounter
--- OUTSIDE RECORDS SUMMARY | 2021-12-22 11:30 | XMS_ITS | Encounter Summary ---
:1945 Author Organization [facility] Address [address] [place] [address] Care Team Providers Name Role Phone Unavailable Primary Care Provider Unavailable Encounter Details Date Type Department Care Team Description 05/06/2020 Treatment [facility] O f Ernie Guzmán MD [address] [place] [address] [place], [place] [address] [phone] (Wo rk) Social History Tobacco Use Types Packs/Day Years Used Date Smoking Tobacco: Unknown Comments: Smoking History Info:Patient n ot screened Sex Assigned at Date Recorded Not on file documented as of this encounter Miscellaneous Notes Dialysis Note - Ernie Pompa MD - 05/06/2020 11:40 AM CST Date: May 06, 2020 Patient Name: Shaun Ocampo : 1945 Chart #: [id number] Sex: M This patient was personally seen [...] AM ) BP (sit): 108/52 AP(-) / YARN SPINNER: 261/214 Pulse: 89 Chairside data as of [...] Every 4 weeks During Dialysis 04/15/2020 04/14/2021 OUTBOUND TELEMARKETER: Ernie Pompa MD LOCATION: [phone] SCHEDULE: 2nd Shift ACCESS: EDW: kg. DIALYZER: HD DURATION: NEEDLE SIZE: ANTICOAG: BATH: QB: ml/min QD: ml/min Subjective Tolerating dialysis well. Reports no trouble with access. 05/06: HD going well outside high fluid gains that continue. However, acute abd/groin pain on Monday and came off early. Had gross hematuria Monday. Went to Urgent care -> ER in [place] yesterday,CT with R hydro but no obstructive [...] infiltration last week, dialyzed at [facility] on Sat and went well, access [...] (12/25/19) Vascular Access Assessment: Type of access: [id number]/2019 Surgeon - Lary GARDNER Access working well Impression and Plan No changes, stable dialysis He will monitor sx and ensure gross hematuria resolves and pain resolving over next 48hrs [facility] get him in for [...]
--- OUTSIDE RECORDS SUMMARY | 2021-12-22 11:30 | XMS_ITS | Encounter Summary ---
:1945 Author Organization [facility] Address [address] [place] [address] Care Team Providers Name Role Phone Unavailable Primary Care Provider Unavailable Encounter Details Date Type Department Care Team Description 07/01/2020 Treatment [facility] O f Ernie Guzmán MD [address] [place] [address] [place], [place] [address] [phone] (Wo rk) Social History Tobacco Use Types Packs/Day Years Used Date Smoking Tobacco: Unknown Comments: Smoking History Info:Patient n ot screened Sex Assigned at Date Recorded Not on file documented as of this encounter Miscellaneous Notes Dialysis Note - Ernie Pompa MD - 07/01/2020 11:18 AM CDT Date: Jul 01, 2020 Patient Name: Shaun Ocampo : 1945 Chart #: [id number] Sex: M This patient was personally seen [...] AM ) BP (sit): 115/74 AP(-) / TRIM DIE MAKER: 251/198 Pulse: 66 Chairside data as of [...] Every 2 weeks During Dialysis 06/24/2020 06/23/2021 MACHINE SET UP: Ernie Pompa MD LOCATION: [phone] SCHEDULE: M-W-F 2nd Shift EDW: kg. DIALYZER: HD DURATION: NEEDLE SIZE: ANTICOAG: BATH: QB: ml/min QD: ml/min Subjective Tolerating dialysis well. 07/01: Doing well, feels great. Big problem is fluid gains, discussed in great detail again today. 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 06/10: Doing well overall, no new [...] Went to Urgent care -> ER in [place] yesterday,CT with R hydro but no obstructive [...] prescription. Vascular Access Assessment Type of access: [id number]/2019 Surgeon - Lary KUMARW Access working well [...] at goal. Intact PTH is above goal. Sericulturist will adjust binders and vitamin D per [...] on dialysis. Schedule UF run extra at [place] when available. Hold Hep day before and [...]
--- OUTSIDE RECORDS SUMMARY | 2021-12-22 11:30 | XMS_ITS | Encounter Summary ---
:1945 Author Organization [facility] Address [address] [place] [address] Care Team Providers Name Role Phone Unavailable Primary Care Provider Unavailable Encounter Details Date Type Department Care Team Description 06/24/2020 Orders Only [facility] O f Ernie Guzmán MD [phone] [place] [address] [place], [place] [phone] (Wo rk) Social History Tobacco Use [...] 06/26/2020 Unless otherwise specified, test(s) performed at: [facility], [address] [place] [address] BED MACHINE OPERATOR: Alec Payan M.D. For any questions, please call customer service at FREQUENCY:MONTHLY Resulting Agency Comment Specimen source: Plasma Ernie Pompa MD LAB BLOOD ORDERABLES Performing Organization Address City/[facility]/ZIP [facility] Phon e Number [facility]PS SPECTRA [facility] HD [...] 06/25/2020 Unless otherwise specified, test(s) performed at: [facility], [address] [place], [place] [id number] BED MACHINE OPERATOR: Alec Payan M.D. For any questions, please call customer service at FREQUENCY:MONTHLY Resulting Agency Comment Specimen source: Plasma Ernie Pompa MD LAB BLOOD ORDERABLES Performing Organization Address City/[facility] Phon e Number APS [...] 06/26/2020 Unless otherwise specified, test(s) performed at: [facility], [address] [place] [address] BED MACHINE OPERATOR: Alec Payan M.D. For any questions, please call customer service at FREQUENCY:MONTHLY Resulting Agency Comment Specimen source: Blood Ernie Pompa MD LAB BLOOD ORDERABLES Performing Organization Address City/[facility] Phon e Number APS [...] APS SPECTRA [facility] (ABNORMAL) Spectrae Chemistry (06/24/2020) [facility] Method Time Signature Ferritin 951 (H) [...] 06/25/2020 Unless otherwise specified, test(s) performed at: [facility], [address] [place] [address] BED MACHINE OPERATOR: Alec Payan M.D. For any questions, please call customer service at FREQUENCY:MONTHLY Resulting Agency Comment Specimen source: Serum Ernie Pompa MD LAB BLOOD ORDERABLES Performing Organization Address City/State/ZIP Code Phon e Number APS SPECTRA [facility] documented in this encounter Visit Diagnoses Not on filedocumented in this encounter
--- OUTSIDE RECORDS SUMMARY | 2021-12-22 11:30 | XMS_ITS | Encounter Summary ---
:1945 Author Organization [facility] Address [address] [place] [address] Care Team Providers Name Role Phone Unavailable Primary Care Provider Unavailable Encounter Details Date Type Department Care Team Description 08/12/2020 Orders Only [facility] O f Ernie Guzmán MD [address] [place] [address] [place], [place] [phone] (Wo rk) Social History Tobacco Use [...] 08/13/2020 Unless otherwise specified, test(s) performed at: [facility], [address] [place] [address] CROSSING WATCHMAN: Alec Payan M.D. For any questions, please call customer service at FREQUENCY:OTHER Resulting Agency Comment Specimen source: Blood Ernie Pompa MD LAB BLOOD ORDERABLES Performing Organization Address City/State/ZIP Code Phon e Number APS SPECTRA [facility] documented in this encounter Visit Diagnoses Not on filedocumented in this encounter
--- OUTSIDE RECORDS SUMMARY | 2021-12-22 11:30 | XMS_ITS | Encounter Summary ---
:1945 Author Organization [facility] Address [address] [place] [address] Care Team Providers Name Role Phone Unavailable Primary Care Provider Unavailable Encounter Details Date Type Department Care Team Description 03/25/2020 Treatment [facility] O f Ernie Guzmán MD [address] [place] [address] [place], [place] [phone] (Wo rk) Social History Tobacco Use Types Packs/Day Years Used Date Smoking Tobacco: Unknown Comments: Smoking History Info:Patient n ot screened Sex Assigned at Date Recorded Not on file documented as of this encounter Miscellaneous Notes Dialysis Note - Ernie Pompa MD - 03/25/2020 10:39 AM CST Date: Mar 25, 2020 Patient Name: Shaun Ocampo : 1945 Chart #: [id number] Sex: M This patient was personally seen [...] AM ) BP (sit): 115/62 AP(-) / PUBLIC SPEAKING COACH: 248/203 Pulse: 72 Chairside data as of [...] Every 4 weeks During Dialysis 03/18/2020 03/17/2021 GLASS BLOWING LATHE OPERATOR: Ernie Pompa MD LOCATION: [phone] SCHEDULE: M-W-F 2nd Shift EDW: kg. DIALYZER: [...] had infiltration last week, dialyzed at [facility] on Sat and went well, access [...] prescription. Vascular Access Assessment Type of access: [id number]/2019 Surgeon - Lary KUMARW Access working well [...] above goal. Intact PTH is at goal. Strip Mill Operator will adjust binders and vitamin [...]
--- OUTSIDE RECORDS SUMMARY | 2021-12-22 11:30 | XMS_ITS | Encounter Summary ---
:1945 Author Organization [facility] Address [address] [place] [address] Care Team Providers Name Role Phone Unavailable Primary Care Provider Unavailable Encounter Details Date Type Department Care Team Description 04/29/2020 Orders Only [facility] O f Ernie Guzmán MD [address] [place] [address] [place], [place] [phone] (Wo rk) Social History Tobacco Use [...] / Volume Laterality 04/29/2020 05/01/2020 2:20 PM MODULAR HOME CREW MEMBER Narrative APS SPECTRA [facility] - 05/01/2020 Unless otherwise specified, test(s) performed at: [facility], [address] [place] [address] ART PROFESSOR: Alec Payan M.D. For any questions, please call customer service at FREQUENCY:OTHER Resulting Agency Comment Specimen source: Blood Ernie Pompa MD LAB BLOOD ORDERABLES Performing Organization Address City/State/ZIP Code Phon e Number APS SPECTRA [facility] documented in this encounter Visit Diagnoses Not on filedocumented in this encounter
--- OUTSIDE RECORDS SUMMARY | 2021-12-22 11:30 | XMS_ITS | Encounter Summary ---
:1945 Author Organization [facility] Address [address] [place] [address] Care Team Providers Name Role Phone Unavailable Primary Care Provider Unavailable Encounter Details Date Type Department Care Team Description 07/08/2020 Treatment [facility] O Ernie Gómez MD [address] [place] [address] [place], [place] [phone] [phone] (Wo rk) Social History Tobacco Use Types Packs/Day Years Used Date Smoking Tobacco: Unknown Comments: Smoking History Info:Patient n ot screened Sex Assigned at Date Recorded Not on file documented as of this encounter Miscellaneous Notes Dialysis Note - Ernie Pompa MD - 07/08/2020 9:33 AM CDT Date: Jul 08, 2020 Patient Name: Shaun Ocampo : 1945 Chart #: [id number] Sex: M This patient was personally seen [...] Flow > 1999 > 1999 > 1999 TOOTH CUTTER CONTACT WHEEL: Ernie Pompa MD LOCATION: [place] [phone] SCHEDULE: 2nd Shift ACCESS: EDW: kg. DIALYZER: [...] for ureteral ?tumor early next month in [place]. 06/10: Doing well overall, no new complaints, [...] Went to Urgent care -> ER in [place] yesterday,CT with R hydro but no obstructive [...] He had infiltration last week, dialyzed at [facility] on Sat and went well, access [...] (04/22/20) Vascular Access Assessment: Type of access: [id number]/2019 Surgeon - Lary GARDNER Access working well [...]
--- OUTSIDE RECORDS SUMMARY | 2021-12-22 11:30 | XMS_ITS | Encounter Summary ---
:1945 Author Organization [facility] Address [address] [place] [address] Care Team Providers Name Role Phone Unavailable Primary Care Provider Unavailable Encounter Details Date Type Department Care Team Description 04/22/2020 Treatment [facility] f Ernie Guzmán MD [address] [place] [address] [place], [place] [phone] (Wo rk) Social History Tobacco Use Types Packs/Day Years Used Date Smoking Tobacco: Unknown Comments: Smoking History Info:Patient n ot screened Sex Assigned at Date Recorded Not on file documented as of this encounter Miscellaneous Notes Dialysis Note - Ernie Pompa MD - 04/22/2020 11:52 AM CST Date: Apr 22, 2020 Patient Name: Shaun Ocampo : 1945 Chart #: [id number] Sex: M This patient was personally seen [...] AM ) BP (sit): 115/64 AP(-) / HUMAN RESOURCES OFFICE MANAGER: 258/208 Pulse: 67 Chairside data as of [...] Every 4 weeks During Dialysis 04/15/2020 04/14/2021 LIQUIFIED NATURAL GAS TECHNICIAN: Ernie Pompa MD LOCATION: [phone] SCHEDULE: M-W-F 2nd Shift EDW: kg. DIALYZER: [...] prescription. Vascular Access Assessment Type of access: [id number]/2019 Surgeon - Lary GARDNER Access working well [...] above goal. Intact PTH is above goal. Dishwasher Preparer will adjust binders and vitamin D per [...]
--- OUTSIDE RECORDS SUMMARY | 2021-12-22 11:30 | XMS_ITS | Encounter Summary ---
:1945 Author Organization [facility] Address [address] [place] [address] Care Team Providers Name Role Phone Unavailable Primary Care Provider Unavailable Encounter Details Date Type Department Care Team Description 05/27/2020 Treatment [facility] Ernie Gómez MD [address] [place] [address] [place], [place] [phone] (Wo rk) Social History Tobacco Use Types Packs/Day Years Used Date Smoking Tobacco: Unknown Comments: Smoking History Info:Patient n ot screened Sex Assigned at Date Recorded Not on file documented as of this encounter Miscellaneous Notes Dialysis Note - Ernie Pompa MD - 05/27/2020 12:29 PM CST Date: May 27, 2020 Patient Name: Shaun Ocampo : 1945 Chart #: [id number] Sex: M This patient was personally seen [...] AM ) BP (sit): 122/55 AP(-) / SKEIN DRIER: 234/221 Pulse: 72 Chairside data as of [...] Every 4 weeks During Dialysis 04/15/2020 04/14/2021 MANAGER DIABETES: Ernie Pompa MD LOCATION: [phone] SCHEDULE: M-W-F 2nd Shift EDW: kg. DIALYZER: [...] Went to Urgent care -> ER in [place] yesterday,CT with R hydro but no obstructive [...] He had infiltration last week, dialyzed at [facility] on Sat and went well, [...] prescription. Vascular Access Assessment Type of access: [id number]/2019 Surgeon - Lary GARDNER Access working well [...] above goal. Intact PTH is above goal. Cargo Worker will adjust binders and vitamin D [...]
--- OUTSIDE RECORDS SUMMARY | 2021-12-22 11:30 | XMS_ITS | Encounter Summary ---
:1945 Author Organization [facility] Address [address] [place] [address] Care Team Providers Name Role Phone Unavailable Primary Care Provider Unavailable Encounter Details Date Type Department Care Team Description 06/10/2020 Orders Only [facility] f Ernie Guzmán MD [phone] [place] [address] [place], [place] [phone] (Wo rk) Social History Tobacco Use [...] 06/11/2020 Unless otherwise specified, test(s) performed at: [facility] [address] [place] [address] BILINGUAL SCHOOL PSYCHOLOGIST: Alec Payan M.D. For any questions, please call customer service at FREQUENCY:OTHER Resulting Agency Comment Specimen source: Blood Ernie Pompa MD LAB BLOOD ORDERABLES Performing Organization Address City/State/ZIP Code Phon e Number [facility] documented in this encounter Visit Diagnoses Not on filedocumented in this encounter
--- OUTSIDE RECORDS SUMMARY | 2021-12-22 11:30 | XMS_ITS | Encounter Summary ---
:1945 Author Organization [facility] Address [address] [place] [address] Care Team Providers Name Role Phone Unavailable Primary Care Provider Unavailable Encounter Details Date Type Department Care Team Description 2020 Treatment [facility] f Ernie Guzmán MD [address] [place] [address] [place], [place] [phone] (Wo rk) Social History Tobacco Use Types Packs/Day Years Used Date Smoking Tobacco: Unknown Comments: Smoking History Info:Patient n ot screened Sex Assigned at Date Recorded Not on file documented as of this encounter Miscellaneous Notes Dialysis Note - Ernie Pompa MD - 2020 10:59 AM CDT Date: 2020 Patient Name: Shaun Ocampo : 1945 Chart #: [id number] Sex: M This patient was personally seen for a basic visit as part of routine weekly dialysis care. A reviewof the dialysis treatment, blood pressure, estimated dry weight and recent lab values was made. These were discussed with the patient and staff as necessary. FINANCIAL ANALYST ACCOUNTANT: Ernie Pmopa MD LOCATION: [phone] SCHEDULE: M-W-F 2nd Shift ACCESS: EDW: kg. 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 06/10: Doing well overall, no new complaints, [...] Went to Urgent care -> ER in [place] yesterday,CT with R hydro but no obstructive [...] He had infiltration last week, dialyzed at [facility] on Sat and went well, [...] (05/20/20) Vascular Access Assessment: Type of access: [id number]/2019 Surgeon - Lary GARDNER Access working well Impression and Plan No changes in prescription Discussed fluid gains, possible need for increased time on HD but he really wants to avoid more [id number]. Discussed possible need for extra treatments occasionally [...]
--- OUTSIDE RECORDS SUMMARY | 2021-12-22 11:30 | XMS_ITS | Encounter Summary ---
:1945 Author Organization [facility] Address [address] [place] [address] Care Team Providers Name Role Phone Unavailable Primary Care Provider Unavailable Encounter Details Date Type Department Care Team Description 07/01/2020 Orders [facility] f Ernie Guzmán MD [address] [place] [address] [place], [place] [phone] (Wo rk) Social History Tobacco Use [...] 07/03/2020 Unless otherwise specified, test(s) performed at: [facility], [address] [place] [address] JALOUSIES INSTALLER: Alec Payan M.D. For any questions, please call customer service at FREQUENCY:OTHER Resulting Agency Comment Specimen source: Blood Ernie Pompa MD LAB BLOOD ORDERABLES Performing Organization Address City/State/ZIP Code Phon e Number [facility] documented in this encounter Visit Diagnoses Not on filedocumented in this encounter
--- OUTSIDE RECORDS SUMMARY | 2021-12-22 11:30 | XMS_ITS | Encounter Summary ---
:1945 Author Organization [facility] Address [address] [place] [address] Care Team Providers Name Role Phone Unavailable Primary Care Provider Unavailable Encounter Details Date Type Department Care Team Description 2020 Orders [facility] f Ernie Guzmán MD [phone] [place] [address] [place], [place] [phone] (Wo rk) Social History Tobacco Use [...] 08/06/2020 Unless otherwise specified, test(s) performed at: [facility], [address] [place] [address] HOME HEALTH CARE PROVIDER: Alec Payan M.D. For any questions, please call customer service at FREQUENCY:OTHER Resulting Agency Comment Specimen source: Blood Ernie Pompa MD LAB BLOOD ORDERABLES Performing Organization Address City/State/ZIP Code Phon e Number [facility] documented in this encounter Visit Diagnoses Not on filedocumented in this encounter
--- OUTSIDE RECORDS SUMMARY | 2021-12-22 11:30 | XMS_ITS | Encounter Summary ---
:1945 Author Organization [facility] Address [address] [place] [address] Care Team Providers Name Role Phone Unavailable Primary Care Provider Unavailable Encounter Details Date Type Department Care Team Description 07/22/2020 Treatment [facility] f Ernie Guzmán MD [address] [place] [address] [place], [place] [phone] (Wo rk) Social History Tobacco Use Types Packs/Day Years Used Date Smoking Tobacco: Unknown Comments: Smoking History Info:Patient n ot screened Sex Assigned at Date Recorded Not on file documented as of this encounter Miscellaneous Notes Dialysis Note - Ernie Pompa MD - 07/22/2020 10:25 AM CDT Date: July 22, 2020 Patient Name: Shaun Ocampo : 1945 Chart #: [id number] Sex: M This patient was personally seen [...] AM ) BP (sit): 139/55 AP(-) / HIGH SCHOOL MATH TEACHER: 262/224 Pulse: 69 Chairside data as [...] Every 4 weeks During Dialysis 07/08/2020 07/07/2021 SCALLOP CUTTER: Ernie Pompa MD LOCATION: [phone] SCHEDULE: M-W-F 2nd Shift EDW: kg. 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 06/10: Doing well overall, no new complaints, [...] Went to Urgent care -> ER in [place] yesterday,CT with R hydro but no obstructive [...] He had infiltration last week, dialyzed at [facility] on Sat and went well, [...] prescription. Vascular Access Assessment Type of access: [id number]/2019 Surgeon - Lary KUMARW Access working well [...] at goal. Intact PTH is above goal. Financial Advocate will adjust binders and vitamin D per [...]
--- OUTSIDE RECORDS SUMMARY | 2021-12-22 11:30 | XMS_ITS | Encounter Summary ---
:1945 Author Organization [facility] Address [address] [place] [address] Care Team Providers Name Role Phone Unavailable Primary Care Provider Unavailable Encounter Details Date Type Department Care Team Description 04/08/2020 Orders [facility] f Ernie Guzmán MD [address] [place] [address] [place], [place] [phone] (Wo rk) Social History Tobacco Use [...] / Volume Laterality 04/08/2020 04/09/2020 2:20 PM VISITOR USE ASSISTANT Narrative [facility] - 04/09/2020 Unless otherwise specified, test(s) performed at: [facility], [address] [place] [address] RUBBER PRINTING MACHINE OPERATOR: Alec Payan M.D. For any questions, please call customer service at FREQUENCY:OTHER Resulting Agency Comment Specimen source: Blood Ernie Pompa MD LAB BLOOD ORDERABLES Performing Organization Address City/State/ZIP Code Phon e Number [facility] documented in this encounter Visit Diagnoses Not on filedocumented in this encounter
--- OUTSIDE RECORDS SUMMARY | 2021-12-22 11:30 | XMS_ITS | Encounter Summary ---
:1945 Author Organization [facility] Address [address] [place] [address] Care Team Providers Name Role Phone Unavailable Primary Care Provider Unavailable Encounter Details Date Type Department Care Team Description 06/10/2020 Treatment [facility] Ernie Gómez MD [address] [place] [address] [place], [place] [phone] (Wo rk) Social History Tobacco Use Types [...] AM ) BP (sit): 120/54 AP(-) / DISTRIBUTOR OF DIRECTORIES: 219/180 Pulse: 69 Chairside data as of [...] Every 4 weeks During Dialysis 04/15/2020 04/14/2021 SPEECH PATHOLOGY TEACHER: Ernie Pompa MD LOCATION: [phone] SCHEDULE: M-W-F 2nd Shift ACCESS: EDW: kg. [...] Went to Urgent care -> ER in [place] yesterday,CT with R hydro but no obstructive [...] He had infiltration last week, dialyzed at [facility] on Sat and went well, access [...] (03/25/20) Vascular Access Assessment: Type of access: [id number]/2019 Surgeon - Lary GARDNER Access working well [...]
--- OUTSIDE RECORDS SUMMARY | 2021-12-22 11:30 | XMS_ITS | Encounter Summary ---
:1945 Author Organization [facility] Address [address] [place] [address] Care Team Providers Name Role Phone Unavailable Primary Care Provider Unavailable Encounter Details Date Type Department Care Team Description 07/22/2020 Orders [facility] f Ernie Guzmán MD [address] [place] [address] [place], [place] [phone] (Wo rk) Social History Tobacco Use [...] 07/24/2020 Unless otherwise specified, test(s) performed at: [facility], [address] [place] [address] SOLUTION MAKE UP OPERATOR: Alec Payan M.D. For any questions, please call customer service at FREQUENCY:MONTHLY Resulting Agency Comment Specimen source: Plasma Ernie Pompa MD LAB BLOOD ORDERABLES Performing Organization Address City/[facility] Phon e Number [facility] IMMUNO CHEMISTRY (07/22/2020) P athologist Signature Hep B Surface Negative Negative [facility]PS SPECTRA Ag [facility] Specimen (Source) Anatomical Collection Method Collection Time Re ceived Time Location / / Volume Laterality 07/22/2020 07/23/2020 4:57 PM CDT Narrative [facility] - 07/23/2020 Unless otherwise specified, test(s) performed at: [facility], [address] [place] [address] SOLUTION MAKE UP OPERATOR: Alec Payan M.D. For any questions, please call customer service at FREQUENCY:MONTHLY Resulting Agency Comment Specimen source: Serum Ernie Pompa MD LAB BLOOD ORDERABLES Performing Organization Address City/State/ZIP Code Phon e Number [facility]PS S[facility]RA [facility] (ABNORMAL) Spectrae Chemistry (07/22/2020) [facility] Method Time Signature BUN 58 (H) [...] 07/23/2020 Unless otherwise specified, test(s) performed at: [facility], [address] [place], [place] [address] SOLUTION MAKE UP OPERATOR: Alec Payan M.D. For any questions, please call customer service at FREQUENCY:MONTHLY Resulting Agency Comment Specimen source: Serum Ernie Pompa MD LAB BLOOD ORDERABLES Performing Organization Address City/[facility] Phon e Number APS [...] Performing Organization Address City/[facility] Code Phon e [...] 07/23/2020 Unless otherwise specified, test(s) performed at: [facility], [address] [place] [address] SOLUTION MAKE UP OPERATOR: Alec Payan M.D. For any questions, please call customer service at FREQUENCY:MONTHLY Resulting Agency Comment Specimen source: Blood Ernie Pompa MD LAB BLOOD ORDERABLES Performing Organization Address City/State/ZIP Code Phon e Number [facility] documented in this encounter Visit Diagnoses Not on filedocumented in this encounter
--- OUTSIDE RECORDS SUMMARY | 2021-12-22 11:30 | XMS_ITS | Encounter Summary ---
:1945 Author Organization [facility] Address [address] [place] [address] Care Team Providers Name Role Phone Unavailable Primary Care Provider Unavailable Encounter Details Date Type Department Care Team Description 04/22/2020 Orders [facility] O f Ernie Guzmán MD [address] [place] [address] [place], [place] [phone] (Wo rk) Social History Tobacco Use [...] / Volume Laterality 04/22/2020 04/23/2020 7:44 PM LAND SURVEYOR MANAGER Narrative [facility] - 04/25/2020 Unless otherwise specified, test(s) performed at: [facility], [address] [place] [address] PARKING CASHIER: Alec Payan M.D. For any questions, please [...] / Volume Laterality 04/22/2020 04/23/2020 3:15 PM LAND SURVEYOR MANAGER Narrative [facility] - 04/24/2020 Unless otherwise specified, test(s) performed at: [facility], [address] [place] [address] PARKING CASHIER: Alec Payan M.D. For any questions, please call customer service at FREQUENCY:MONTHLY Resulting Agency Comment Specimen source: Blood Ernie Pompa MD LAB BLOOD ORDERABLES Performing Organization Address City/[facility] Phon e Number [facility] S[facility]RA [facility] HD KINETICS (04/22/2020) P athologist Signature % Urea 79 65 - 80 % [facility]PS SPECTRA Reduction [facility] Specimen (Source) Anatomical Collection Method Collection Time Re ceived Time Location / / Volume Laterality 04/22/2020 04/23/2020 7:45 PM LAND SURVEYOR MANAGER Narrative [facility] - 04/24/2020 Unless otherwise specified, test(s) performed at: [facility], [address] [place] [address] PARKING CASHIER: Alec Payan M.D. For any questions, please call customer service at FREQUENCY:MONTHLY Resulting Agency Comment Specimen source: Serum Ernie Pompa MD LAB BLOOD ORDERABLES Performing Organization Address City/[facility] Code Phon e [...] / Volume Laterality 04/22/2020 04/23/2020 7:44 PM LAND SURVEYOR MANAGER Narrative [facility]PS SPECTRA [facility] - 04/24/2020 Unless otherwise specified, test(s) performed at: [facility], [address] [place] [address] PARKING CASHIER: Alec Payan M.D. For any questions, please [...] / Volume Laterality 04/22/2020 04/23/2020 3:15 PM LAND SURVEYOR MANAGER Narrative [facility] - 04/24/2020 Unless otherwise specified, test(s) performed at: [facility], [address] [place] [address] PARKING CASHIER: Alec Payan M.D. For any questions, please [...] / Volume Laterality 04/22/2020 04/23/2020 2:14 PM LAND SURVEYOR MANAGER Narrative [facility]PS [facility]RA [facility] - 04/23/2020 Unless otherwise specified, test(s) performed at: [facility], [address] [place] [address] PARKING CASHIER: Alec Payan M.D. For any questions, please call customer service at FREQUENCY:MONTHLY Resulting Agency Comment Specimen source: Plasma Ernie Pompa MD LAB BLOOD ORDERABLES Performing Organization Address City/State/ZIP Code Phon e Number [facility] S[facility] documented in this encounter Visit Diagnoses Not on filedocumented in this encounter
--- OUTSIDE RECORDS SUMMARY | 2021-12-22 11:30 | XMS_ITS | Encounter Summary ---
:1945 Author Organization [facility] Address [address] [place] [address] Care Team Providers Name Role Phone Unavailable Primary Care Provider Unavailable Encounter Details Date Type Department Care Team Description 04/15/2020 Orders [facility] O f Ernie Guzmán MD [address] [place] [address] [place], [place] [phone] (Wo rk) Social History Tobacco Use [...] / Volume Laterality 04/15/2020 04/16/2020 9:[address]GE Narrative [facility]PS [facility] - 04/16/2020 Unless otherwise specified, test(s) performed at: [facility], [address] [place] [address] LOCATION MAN: Alec Payan M.D. For any questions, please call customer service at FREQUENCY:OTHER Resulting Agency Comment Specimen source: Blood Ernie Pompa MD LAB BLOOD ORDERABLES Performing Organization Address City/State/ZIP Code Phon e Number [facility] documented in this encounter Visit Diagnoses Not on filedocumented in this encounter
--- OUTSIDE RECORDS SUMMARY | 2021-12-22 11:30 | XMS_ITS | Encounter Summary ---
:1945 Author Organization [facility] Address [address] [place] [address] Care Team Providers Name Role Phone Unavailable Primary Care Provider Unavailable Encounter Details Date Type Department Care Team Description 07/15/2020 Orders [facility] O f Ernie Guzmán MD [address] [place] [address] [place], [place] [phone] (Wo rk) Social History Tobacco Use [...] 07/16/2020 Unless otherwise specified, test(s) performed at: [facility], [address] [place] [address] MAINTENANCE ENGINEER: Alec Payan M.D. For any questions, please call customer service at FREQUENCY:OTHER Resulting Agency Comment Specimen source: Blood Ernie Pompa MD LAB BLOOD ORDERABLES Performing Organization Address City/State/ZIP Code Phon e Number [facility] documented in this encounter Visit Diagnoses Not on filedocumented in this encounter
--- OUTSIDE RECORDS SUMMARY | 2021-12-22 11:31 | XMS_ITS | Encounter Summary ---
:1945 Author Organization [facility] Address [address] [place] [address] Care Team Providers Name Role Phone Unavailable Primary Care Provider Unavailable Encounter Details Date Type Department Care Team Description 01/22/2020 Treatment [facility] O Ernie Gómez MD [address] [place] [address] [place], [place] [phone] [phone] (Wo rk) Social History Tobacco Use Types Packs/Day Years Used Date Smoking Tobacco: Unknown Comments: Smoking History Info:Patient n ot screened Sex Assigned at Date Recorded Not on file documented as of this encounter Miscellaneous Notes Dialysis Note - Ernie Pompa MD - 01/22/2020 9:00 AM CST Date: Jan 22, 2020 Patient Name: Shaun Ocampo : 1945 Chart #: [id number] Sex: M This patient was personally seen [...] AM ) BP (sit): 139/67 AP(-) / PIPE COVERER: n/a Pulse: 72 Chairside data as of [...] Every 2 weeks During Dialysis 01/22/2020 01/20/2021 RESIDENT ADVISOR: Ernie Popma MD LOCATION: [facility] [phone] SCHEDULE: M-W-F 2nd Shift EDW: kg. DIALYZER: [...] had infiltration last week, dialyzed at [facility] on Sat and went [...] prescription. Vascular Access Assessment Type of access: [id number]/2019 Surgeon - Lary KUMARW Access working well [...] above goal. Intact PTH is at goal. Philosophy Faculty will adjust binders and vitamin D per [...]
--- OUTSIDE RECORDS SUMMARY | 2021-12-22 11:31 | XMS_ITS | Encounter Summary ---
:1945 Author Organization [facility] Address [address] [place] [address] Care Team Providers Name Role Phone Unavailable Primary Care Provider Unavailable Encounter Details Date Type Department Care Team Description 01/29/2020 Orders [facility] O f Ernie Guzmán MD [address] [place] [address] [place], [place] [phone] (Wo rk) Social History Tobacco Use [...] / Volume Laterality 01/29/2020 01/30/2020 5:28 PM BALANCE WHEEL ARM BURNISHER Narrative [facility] - 01/30/2020 Unless otherwise specified, test(s) performed at: [facility], [address] [place] [address] DOUGH SHEETER: Alec Payan M.D. For any questions, please [...] / Volume Laterality 01/29/2020 01/30/2020 1:32 PM BALANCE WHEEL ARM BURNISHER Narrative [facility] - 01/30/2020 Unless otherwise specified, test(s) performed at: [facility], [address] [place] [address] DOUGH SHEETER: Alec Payan M.D. For any questions, please call customer service at FREQUENCY:OTHER Resulting Agency Comment Specimen source: Blood Ernie Pompa MD LAB BLOOD ORDERABLES Performing Organization Address City/State/ZIP Code Phon e Number [facility] documented in this encounter Visit Diagnoses Not on filedocumented in this encounter
--- OUTSIDE RECORDS SUMMARY | 2021-12-22 11:31 | XMS_ITS | Encounter Summary ---
:1945 Author Organization [facility] Address [address] [place] [address] Care Team Providers Name Role Phone Unavailable Primary Care Provider Unavailable Encounter Details Date Type Department Care Team Description 01/29/2020 Treatment [facility] O Ernie Gómez MD [address] [place] [address] [place], [place] [phone] [phone] (Wo rk) Social History Tobacco Use Types Packs/Day Years Used Date Smoking Tobacco: Unknown Comments: Smoking History Info:Patient n ot screened Sex Assigned at Date Recorded Not on file documented as of this encounter Miscellaneous Notes Dialysis Note - Ernie Pompa MD - 01/29/2020 9:56 AM CST Date: Jan 29, 2020 Patient Name: Shaun Ocampo : 1945 Chart #: [id number] Sex: M This patient was personally seen [...] AM ) BP (sit): 133/53 AP(-) / CLINICAL MANAGER HOME CARE: 267/328 Pulse: 71 Chairside data as of [...] Every 2 weeks During Dialysis 01/22/2020 01/20/2021 REINFORCED IRONWORKER: Ernie Pompa MD LOCATION: [facility] [phone] SCHEDULE: M-W-F 2nd Shift ACCESS: EDW: kg. [...] (07/24/19) Vascular Access Assessment: Type of access: [id number]/2019 Surgeon - Lary GARDNER Access working well [...]
--- OUTSIDE RECORDS SUMMARY | 2021-12-22 11:31 | XMS_ITS | Encounter Summary ---
:1945 Author Organization [facility] Address [address] [place] [address] Care Team Providers Name Role Phone Unavailable Primary Care Provider Unavailable Encounter Details Date Type Department Care Team Description 01/22/2020 Orders [facility] O f Ernie Guzmán MD [address] [place] [address] [place], [place] [phone] (Wo rk) Social History Tobacco Use [...] / Volume Laterality 01/22/2020 01/23/2020 8:20 PM CONSTRUCTION PLUMBER Narrative [facility] - 01/24/2020 Unless otherwise specified, test(s) performed at: [facility], [address] [place], [place] [id number] CAR RENTAL SERVICE ATTENDANT: Alec Payan M.D. For any questions, [...] / Volume Laterality 01/22/2020 01/23/2020 8:13 PM CONSTRUCTION PLUMBER Narrative [facility] - 01/24/2020 Unless otherwise specified, test(s) performed at: [facility], [address] [place] [address] CAR RENTAL SERVICE ATTENDANT: Alec Payan M.D. For any questions, please call customer service at FREQUENCY:MONTHLY Resulting Agency Comment Specimen source: Serum Ernie Pompa MD LAB BLOOD ORDERABLES Performing Organization Address City/[facility] Phon e Number [facility] HD KINETICS (01/22/2020) P athologist Signature % Urea 77 65 - 80 % [facility] Reduction [facility] Specimen (Source) Anatomical Collection Method Collection Time Re ceived Time Location / / Volume Laterality 01/22/2020 01/23/2020 8:14 PM CONSTRUCTION PLUMBER Narrative [facility] - 01/24/2020 Unless otherwise specified, test(s) performed at: [facility], [address] [place] [address] CAR RENTAL SERVICE ATTENDANT: Alec Payan M.D. For any questions, [...] / Volume Laterality 01/22/2020 01/23/2020 8:13 PM CONSTRUCTION PLUMBER Narrative [facility] - 01/24/2020 Unless otherwise specified, test(s) performed at: [facility], [address] [place] [address] CAR RENTAL SERVICE ATTENDANT: Alec Payan M.D. For any questions, please call customer service at FREQUENCY:MONTHLY Resulting Agency Comment Specimen source: Serum Ernie Pompa MD LAB BLOOD ORDERABLES Performing Organization Address City/[facility] Phon e Number [facility] POST CHEMISTRY (01/22/2020) P athologist Signature BUN Post 16 6 - 19 [facility] Dialysis mg/dL [facility] Specimen (Source) Anatomical Collection Method Collection Time Re ceived Time Location / / Volume Laterality 01/22/2020 01/23/2020 1:17 PM CONSTRUCTION PLUMBER Narrative [facility] - 01/23/2020 Unless otherwise specified, test(s) performed at: [facility], [address] [place] [address] CAR RENTAL SERVICE ATTENDANT: Alec Payan M.D. For any questions, please call customer service at FREQUENCY:MONTHLY Resulting Agency Comment Specimen source: Plasma Ernie Pompa MD LAB BLOOD ORDERABLES Performing Organization Address City/[facility] Phon e Number [facility] documented in this encounter Visit Diagnoses Not on filedocumented in this encounter
--- OUTSIDE RECORDS SUMMARY | 2021-12-22 11:31 | XMS_ITS | Encounter Summary ---
:1945 Author Organization [facility] Address [address] [place] [address] Care Team Providers Name Role Phone Unavailable Primary Care Provider Unavailable Encounter Details Date Type Department Care Team Description 02/05/2020 [facility] O f Ernie Guzmán MD [address] [place] [address] [place], [place] [phone] (Wo rk) Social History Tobacco Use [...] Volume Laterality 02/05/2020 02/06/2020 10:4 4 AM CHLORINE PLANT OPERATOR Narrative [facility] - 02/06/2020 Unless otherwise specified, test(s) performed at: [facility], [address] [place] [address] RN INFORMATICS: Alec Payan M.D. For any questions, please call customer service at FREQUENCY:OTHER Resulting Agency Comment Specimen source: Blood Ernie Pompa MD LAB BLOOD ORDERABLES Performing Organization Address City/State/ZIP Code Phon e Number [facility] documented in this encounter Visit Diagnoses Not on filedocumented in this encounter
--- OUTSIDE RECORDS SUMMARY | 2021-12-22 11:31 | XMS_ITS | Encounter Summary ---
:1945 Author Organization [facility] Address [address] [place] [address] Care Team Providers Name Role Phone Unavailable Primary Care Provider Unavailable Encounter Details Date Type Department Care Team Description 02/19/2020 Orders [facility] O f Ernie Guzmán MD [address] [place] [address] [place], [place] [phone] (Wo rk) Social History Tobacco Use [...] / Volume Laterality 02/19/2020 02/20/2020 6:44 PM FIRE INVESTIGATOR Resulting Agency Comment Specimen source: Plasma Ernie Pompa MD LAB BLOOD ORDERABLES Performing Organization Address City/State/ZIP Code Phon e Number [facility] POST CHEMISTRY (02/19/2020) P athologist Signature BUN Post 13 6 - 19 [facility] Dialysis mg/dL [facility] Specimen (Source) Anatomical Collection Method Collection Time Re ceived Time Location / / Volume Laterality 02/19/2020 02/20/2020 6:39 PM FIRE INVESTIGATOR Narrative [facility] - 02/21/2020 Unless otherwise specified, test(s) performed at: [facility], [address] [place] [address] AUTO PAINTER: Alec Payan M.D. For any questions, please [...] Volume Laterality 02/19/2020 02/20/2020 10:1 5 AM FIRE INVESTIGATOR Narrative [facility] - 02/20/2020 Unless otherwise specified, test(s) performed at: [facility], [address] [place], [place] [id number] AUTO PAINTER: Alec Payan M.D. For any questions, please [...] Volume Laterality 02/19/2020 02/20/2020 10:4 6 AM FIRE INVESTIGATOR Resulting Agency Comment Specimen source: Serum Ernie [...] Volume Laterality 02/19/2020 02/20/2020 10:4 6 AM FIRE INVESTIGATOR Narrative [facility] - 02/20/2020 Unless otherwise specified, test(s) performed at: [facility], [address] [place] [address] AUTO PAINTER: Alec Payan M.D. For any questions, please call customer service at FREQUENCY:MONTHLY Resulting Agency Comment Specimen source: Serum Ernie Pompa MD LAB BLOOD ORDERABLES Performing Organization Address City/State/ZIP Code Phon e Number [facility] documented in this encounter Visit Diagnoses Not on filedocumented in this encounter
--- OUTSIDE RECORDS SUMMARY | 2021-12-22 11:31 | XMS_ITS | Encounter Summary ---
:1945 Author Organization [facility] Address [address] [place] [address] [address] [place] [address] Care Team Providers Name Role Phone Unavailable Primary Care Provider Unavailable Encounter Details Date Type Department Care Team Description 02/26/2020 [facility] O f Ernie Guzmán MD [address] [place] [address] [place], [place] [phone] (Wo rk) Social History Tobacco Use [...] / Volume Laterality 02/26/2020 02/27/2020 2:55 PM RISK CONTROL PRODUCT LIABILITY DIRECTOR Narrative [facility] - 02/27/2020 Unless otherwise specified, test(s) performed at: [facility], [address] [place] [address] STAKES PLAYER: Alec Payan M.D. For any questions, please call customer service at FREQUENCY:OTHER Resulting Agency Comment Specimen source: Blood Ernie Pompa MD LAB BLOOD ORDERABLES Performing Organization Address City/State/ZIP Code Phon e Number [facility] documented in this encounter Visit Diagnoses Not on filedocumented in this encounter
--- OUTSIDE RECORDS SUMMARY | 2021-12-22 11:31 | XMS_ITS | Encounter Summary ---
:1945 Author Organization [facility] Address [address] [place] [address] Care Team Providers Name Role Phone Unavailable Primary Care Provider Unavailable Encounter Details Date Type Department Care Team Description 03/09/2020 Orders [facility] O f Ernie Guzmán MD [address] [place] [address] [place], [place] [phone] (Wo rk) Social History Tobacco Use [...] athologist Signature Hepatitis B <10 mIU/mL APS [facility] Surface Ab [facility] Comment: Reference Range: <10 mIU/mL ? Non-Immune >=10 mIU/mL ?Immune The magnitude of the measured result abo ve 10 mIU/mL is not indicative of the total amount of antibody present. Custom Exception Specimen (Source) Anatomical Collection Method Collection Time Re ceived Time Location / / Volume Laterality 03/09/2020 03/10/2020 2:47 PM PAPER SUPERVISOR Narrative [facility] - 03/10/2020 Unless otherwise specified, test(s) performed at: [facility], [address] [place] [address] PACKING FLOOR WORKER: Alec Payan M.D. For any questions, please call customer service at FREQUENCY:OTHER Resulting Agency Comment Specimen source: Serum Ernie Pompa MD LAB BLOOD ORDERABLES Performing Organization Address City/[facility]/ZIP Code Phon e Number [facility] (ABNORMAL) HEMATOLOGY (03/09/2020) Analysis Performed At Patho logist Time Signature Hemoglobin 10.6 (L) 14.0 - [facility] 18.0 g/dL [facility] Hemoglobin x 3 31.8 (L) 42.0 - [facility] 54.0 % [facility] Specimen (Source) Anatomical Collection Method Collection Time Re ceived Time Location / / Volume Laterality 03/09/2020 03/10/2020 12:1 4 PM PAPER SUPERVISOR Narrative [facility] - 03/10/2020 Unless otherwise specified, test(s) performed at: [facility], [address] [place] [address] PACKING FLOOR WORKER: Alec Payan M.D. For any questions, please call customer service at FREQUENCY:OTHER Resulting Agency Comment Specimen source: Blood Ernie Pompa MD LAB BLOOD ORDERABLES Performing Organization Address City/State/ZIP Code Phon e Number [facility] documented in this encounter Visit Diagnoses Not on filedocumented in this encounter
--- OUTSIDE RECORDS SUMMARY | 2021-12-22 11:31 | XMS_ITS | Encounter Summary ---
:1945 Author Organization [facility] Address [address] [place] [address] Care Team Providers Name Role Phone Unavailable Primary Care Provider Unavailable Encounter Details Date Type Department Care Team Description 03/04/2020 Treatment [facility] O Ernie Gómez MD [address] [place] [address] [place], [place] [address] [phone] (Wo rk) Social History Tobacco Use Types Packs/Day Years Used Date Smoking Tobacco: Unknown Comments: Smoking History Info:Patient n ot screened Sex Assigned at Date Recorded Not on file documented as of this encounter Miscellaneous Notes Dialysis Note - Ernie Pompa MD - 03/04/2020 9:33 AM CST Date: Mar 04, 2020 Patient Name: Shaun Ocampo : 1945 Chart #: [id number] Sex: M This patient was personally seen [...] AM ) BP (sit): 95/48 AP(-) / MAPLE SYRUP MAKER: 248/204 Pulse: 71 Chairside data as of [...] Every 4 weeks During Dialysis 02/12/2020 02/10/2021 FURNACE PUNCHER: Ernie Pompa MD LOCATION: [facility] [phone] SCHEDULE: M-W- 2nd Shift ACCESS: EDW: kg. [...] (07/24/19) Vascular Access Assessment: Type of access: [id number]/2019 Surgeon - Lary GARDNER Access working well [...]
--- OUTSIDE RECORDS SUMMARY | 2021-12-22 11:31 | XMS_ITS | Encounter Summary ---
:1945 Author Organization [facility] Address [address] [place] [address] Care Team Providers Name Role Phone Unavailable Primary Care Provider Unavailable Encounter Details Date Type Department Care Team Description 01/08/2020 Treatment [facility] O Ernie Gómez MD [address] [place] [address] [place], [place] [phone] [phone] (Wo rk) Social History Tobacco Use Types Packs/Day Years Used Date Smoking Tobacco: Unknown Comments: Smoking History Info:Patient n ot screened Sex Assigned at Date Recorded Not on file documented as of this encounter Miscellaneous Notes Dialysis Note - Ernie Pompa MD - 01/08/2020 12:11 PM CDT Date: Jan 08, 2020 Patient Name: Shaun Ocampo : 1945 Chart #: [id number] Sex: M This patient was personally seen [...] PM ) BP (sit): 118/58 AP(-) / WEBSPHERE DEVELOPER: 261/204 Pulse: 66 Chairside data as of [...] IVP 1X Week During Dialysis 10/28/2019 10/19/2020 LINE PULLER: Ernie Pompa MD LOCATION[phone] SCHEDULE: -W- 2nd Shift ACCESS: EDW: kg. [...] (07/24/19) Vascular Access Assessment: Type of access: Orzrhoa95/2019 Surgeon - Lary GARDNER Access working well Impression and Plan No changes, stable dialysis Ernie Pompa MD [ Signed And locked electronically On 01/08/2020 at 12:12:00 PM ] Transcribed: Ernie Pompa ( 01/08/2020 ) documented in this encounter Plan of Treatment Not on filedocumented as of this encounter Visit Diagnoses Not on filedocumented in this encounter
--- OUTSIDE RECORDS SUMMARY | 2021-12-22 11:31 | XMS_ITS | Encounter Summary ---
:1945 Author Organization [facility] Address [address] [place] [address] Care Team Providers Name Role Phone Unavailable Primary Care Provider Unavailable Encounter Details Date Type Department Care Team Description 02/19/2020 Treatment [facility] O Ernie Gómez MD [address] [place] [address] [place], [place] [address] [phone] (Wo rk) Social History Tobacco Use Types Packs/Day Years Used Date Smoking Tobacco: Unknown Comments: Smoking History Info:Patient n ot screened Sex Assigned at Date Recorded Not on file documented as of this encounter Miscellaneous Notes Dialysis Note - Ernie Pompa MD - 02/19/2020 10:37 AM CST Date: Feb 19, 2020 Patient Name: Shaun Ocampo : 1945 Chart #: [id number] Sex: M This patient was personally seen [...] AM ) BP (sit): 104/47 AP(-) / NUCLEAR POWERPLANT MECHANIC HELPER: 260/215 Pulse: 84 Chairside data as of [...] Every 4 weeks During Dialysis 02/12/2020 02/10/2021 DOORPERSON: Ernie Pompa MD LOCATION: [facility] [phone] SCHEDULE: M-W-F 2nd Shift EDW: kg. DIALYZER: [...] feels quite well, was out on 4 huogh yesterday in the nice weather and has [...] He had infiltration last week, dialyzed at [facility] on Sat and went well, [...] prescription. Vascular Access Assessment Type of access: [id number]/2019 Surgeon Annita KUMARW Access working well Anemia [...] above goal. Intact PTH is at goal. Portuguese Tutor will adjust binders and vitamin D per [...]
--- OUTSIDE RECORDS SUMMARY | 2021-12-22 11:31 | XMS_ITS | Encounter Summary ---
:1945 Author Organization [facility] Address [address] [place] [address] Care Team Providers Name Role Phone Unavailable Primary Care Provider Unavailable Encounter Details Date Type Department Care Team Description 01/15/2020 [facility] O f Ernie Guzmán MD [address] [place] [address] [place], [place] [phone] (Wo rk) Social History Tobacco Use [...] 01/16/2020 Unless otherwise specified, test(s) performed at: [facility], [address] [place] [address] PRESS SUPERVISOR: Alec Payan M.D. For any questions, please call customer service at FREQUENCY:OTHER Resulting Agency Comment Specimen source: Blood Ernie Pompa MD LAB BLOOD ORDERABLES Performing Organization Address City/State/ZIP Code Phon e Number [facility] documented in this encounter Visit Diagnoses Not on filedocumented in this encounter
--- OUTSIDE RECORDS SUMMARY | 2021-12-22 11:31 | XMS_ITS | Encounter Summary ---
:1945 Author Organization [facility] Address [address] [place] [address] Care Team Providers Name Role Phone Unavailable Primary Care Provider Unavailable Encounter Details Date Type Department Care Team Description 02/12/2020 [facility] O f Ernie Guzmán MD [address] [place] [address] [place], [place] [phone] (Wo rk) Social History Tobacco Use [...] Volume Laterality 02/12/2020 02/14/2020 12:5 9 PM MAGNETIC TESTING TECHNICIAN Narrative [facility] - 02/14/2020 Unless otherwise specified, test(s) performed at: [facility], [address] [place] [address] PANEL BUILDER: Alec Payan M.D. For any questions, please call customer service at FREQUENCY:OTHER Resulting Agency Comment Specimen source: Blood Ernie Pompa MD LAB BLOOD ORDERABLES Performing Organization Address City/State/ZIP Code Phon e Number [facility] documented in this encounter Visit Diagnoses Not on filedocumented in this encounter
--- OUTSIDE RECORDS SUMMARY | 2021-12-22 11:31 | XMS_ITS | Encounter Summary ---
:1945 Author Organization [facility] Address [address] [place] [address] Care Team Providers Name Role Phone Unavailable Primary Care Provider Unavailable Encounter Details Date Type Department Care Team Description 01/01/2020 [facility] O f Ernie Guzmán MD [address] [place] [address] [place], [place] [phone] (Wo rk) Social History Tobacco Use [...] City/[facility]/ZIP Code Phon e Number [facility] HD KINETICS (01/01/2020) P athologist Signature % Urea 77 65 - 80 % [facility]PS [facility] Reduction [facility] Specimen (Source) Anatomical Collection Method Collection Time Re ceived Time Location / / Volume Laterality 01/01/2020 01/02/2020 6:37 PM CDT Narrative [facility]PS [facility] - 01/02/2020 Unless otherwise specified, test(s) performed at: [facility], [address] [place] [address] COMMUNICATIONS ENGINEER: Alec Payan M.D. For any questions, please call customer service at FREQUENCY:OTHER Resulting Agency Comment Specimen source: Serum Ernie Pompa MD LAB BLOOD ORDERABLES Performing Organization Address [facility] Phon e Number [facility]PS S[facility]RA [facility] (ABNORMAL) Spectrae Chemistry (01/01/2020) P athologist Signature BUN 53 (H) 6 - 19 APS [facility]RA mg/dL [facility] Specimen (Source) Anatomical Collection Method Collection Time Re ceived Time Location / / Volume Laterality 01/01/2020 01/02/2020 6:36 PM CDT Narrative [facility] - 01/02/2020 Unless otherwise specified, test(s) performed at: [facility], [address] [place], [place] [id number] COMMUNICATIONS ENGINEER: Alec Payan M.D. For any questions, please call customer service at FREQUENCY:OTHER Resulting Agency Comment Specimen source: Serum Ernie Pompa MD LAB BLOOD ORDERABLES Performing Organization Address City/[facility] Phon e Number APS [...] 01/02/2020 Unless otherwise specified, test(s) performed at: [facility], [address] [place] [address] COMMUNICATIONS ENGINEER: Alec Payan M.D. For any questions, [...] 01/02/2020 Unless otherwise specified, test(s) performed at: [facility], [address] [place] [address] COMMUNICATIONS ENGINEER: Alec Payan M.D. For any questions, please call customer service at FREQUENCY:OTHER Resulting Agency Comment Specimen source: Plasma Ernie Pompa MD LAB BLOOD ORDERABLES Performing Organization Address City/State/[facility] Code Phon e Number [facility]PS [facility]RA [facility] documented in this encounter Visit Diagnoses Not on filedocumented in this encounter
--- OUTSIDE RECORDS SUMMARY | 2021-12-22 11:32 | XMS_ITS | Encounter Summary ---
:1945 Author Organization [facility] Address [address] [place] [address] Care Team Providers Name Role Phone Unavailable Primary Care Provider Unavailable Encounter Details Date Type Department Care Team Description 11/13/2019 Orders Only [facility] O f Ernie Guzmán MD [address] [place] [address] [place], [place] [phone] (Wo rk) Social History Tobacco Use [...] 11/14/2019 Unless otherwise specified, test(s) performed at: [facility], [address] [place] [address] MANUAL WRITER: Alec Payan M.D. For any questions, [...] 11/14/2019 Unless otherwise specified, test(s) performed at: [facility], [address] [place] [address] MANUAL WRITER: Alec Payan M.D. For any questions, please call customer service at FREQUENCY:OTHER Resulting Agency Comment Specimen source: Blood Ernie Pompa MD LAB BLOOD ORDERABLES Performing Organization Address City/[facility] Phon e Number APS SPECTRA [facility] documented in this encounter Visit Diagnoses Not on filedocumented in this encounter
--- OUTSIDE RECORDS SUMMARY | 2021-12-22 11:32 | XMS_ITS | Encounter Summary ---
:1945 Author Organization [facility] Address [address] [place] [address] Care Team Providers Name Role Phone Unavailable Primary Care Provider Unavailable Encounter Details Date Type Department Care Team Description 12/04/2019 Orders Only [facility] O f Ernie Guzmán MD [address] [place] [address] [place], [place] [phone] (Wo rk) Social History Tobacco Use [...] 12/05/2019 Unless otherwise specified, test(s) performed at: [facility], [address] [place] [address] BREAD SUPERVISOR: Alec Payan M.D. For any questions, [...] 12/05/2019 Unless otherwise specified, test(s) performed at: [facility], [address] [place] [address] BREAD SUPERVISOR: Alec Payan M.D. For any questions, please call customer service at FREQUENCY:OTHER Resulting Agency Comment Specimen source: Blood Ernie Pompa MD LAB BLOOD ORDERABLES Performing Organization Address City/[facility] Code Phon e Number APS SPECTRA [facility] documented in this encounter Visit Diagnoses Not on filedocumented in this encounter
--- OUTSIDE RECORDS SUMMARY | 2021-12-22 11:32 | XMS_ITS | Encounter Summary ---
:1945 Author Organization [facility] Address [address] [place] [address] Care Team Providers Name Role Phone Unavailable Primary Care Provider Unavailable Encounter Details Date Type Department Care Team Description 12/04/2019 Treatment [facility] O Ernie Gómez MD [address] [place] [address] [place], [place] [phone] [phone] (Wo rk) Social History Tobacco Use Types Packs/Day Years Used Date Smoking Tobacco: Unknown Comments: Smoking History Info:Patient n ot screened Sex Assigned at Date Recorded Not on file documented as of this encounter Miscellaneous Notes Dialysis Note - Ernie Pompa MD - 12/04/2019 12:16 PM CDT Date: Dec 04, 2019 Patient Name: Shaun Ocampo : 1945 Chart #: [id number] Sex: M This patient was personally seen [...] Every 2 weeks During Dialysis 11/27/2019 11/25/2020 CENTRAL SUPPLY ASSISTANT: Ernie Pompa MD LOCATION: [phone] SCHEDULE: -- 2nd Shift ACCESS: EDW: kg. [...] He had infiltration last week, dialyzed at [facility] on Sat and went well, access [...] (06/19/19) Vascular Access Assessment: Type of access: [id number]/2019 Surgeon - Lary KUMARW Access working well [...]
--- OUTSIDE RECORDS SUMMARY | 2021-12-22 11:32 | XMS_ITS | Encounter Summary ---
:1945 Author Organization [facility] Address [address] [place] [address] Care Team Providers Name Role Phone Unavailable Primary Care Provider Unavailable Encounter Details Date Type Department Care Team Description 10/09/2019 Treatment [facility] O Ernie Gómez MD [address] [place] [address] [place], [place] [phone] [phone] (Wo rk) Social History Tobacco Use Types Packs/Day Years Used Date Smoking Tobacco: Unknown Comments: Smoking History Info:Patient n ot screened Sex Assigned at Date Recorded Not on file documented as of this encounter Miscellaneous Notes Dialysis Note - Ernie Pompa MD - 10/09/2019 12:54 PM CDT Date: Oct 09, 2019 Patient Name: Shaun Ocampo : 1945 Chart #: [id number] Sex: M This patient was personally seen [...] PM ) BP (sit): 135/54 AP(-) / LABORER/KEY MAN: 204/180 Pulse: 65 Chairside data as of [...] 1000 units IVP Every Treatment 05/01/2019 04/29/2020 LICENSED PHYSICAL THERAPIST ASSISTANT: Ernie Pompa MD LOCATION: [phone] SCHEDULE: M-W- 2nd Shift ACCESS: EDW: kg. [...] (06/19/19) Vascular Access Assessment: Type of access: [id number]/2019 Surgeon - Lary GARDNER Access working well [...]
--- OUTSIDE RECORDS SUMMARY | 2021-12-22 11:32 | XMS_ITS | Encounter Summary ---
:1945 Author Organization [facility] Address [address] [place] [address] Care Team Providers Name Role Phone Unavailable Primary Care Provider Unavailable Encounter Details Date Type Department Care Team Description 12/25/2019 Orders Only [facility] O f Ernie Guzmán MD [address] [place] [address] [place], [place] [phone] (Wo rk) Social History Tobacco Use [...] 12/27/2019 Unless otherwise specified, test(s) performed at: [facility], [address] [place] [address] ASSOCIATE CIVIL ENGINEER: Alec Payan M.D. For any questions, please call customer service at FREQUENCY:MONTHLY Resulting Agency Comment Specimen source: Plasma Ernie Pompa MD LAB BLOOD ORDERABLES Performing Organization Address City/[facility] Phon e Number APS SPECTRA [facility] IMMUNO CHEMISTRY (12/25/2019) P athologist Signature Hep B Surface Negative Negative APS SPECTRA Ag [facility] Specimen (Source) Anatomical Collection Method Collection Time Re ceived Time Location / / Volume Laterality 12/25/2019 12/26/2019 5:50 PM CDT Narrative APS SPECTRA [facility] - 12/27/2019 Unless otherwise specified, test(s) performed at: [facility], [address] [place] [address] ASSOCIATE CIVIL ENGINEER: Alec Payan M.D. For any questions, please call customer service at FREQUENCY:MONTHLY Resulting Agency Comment Specimen source: Serum Ernie Pompa MD LAB BLOOD ORDERABLES Performing Organization Address [facility] Phon e [...] 12/27/2019 Unless otherwise specified, test(s) performed at: [facility], [address] [place] [address] ASSOCIATE CIVIL ENGINEER: Alec Payan M.D. For any questions, please call customer service at FREQUENCY:MONTHLY Resulting Agency Comment Specimen source: Plasma Ernie Pompa MD LAB BLOOD ORDERABLES Performing Organization Address City/[facility] Phon e [...] 12/27/2019 Unless otherwise specified, test(s) performed at: [facility], [address] [place] [address] ASSOCIATE CIVIL ENGINEER: Alec Payan M.D. For any questions, [...] 12/27/2019 Unless otherwise specified, test(s) performed at: [facility], [address] [place] [address] ASSOCIATE CIVIL ENGINEER: Alec Payan M.D. For any questions, please call customer service at FREQUENCY:MONTHLY Resulting Agency Comment Specimen source: Blood Ernie Pompa MD LAB BLOOD ORDERABLES Performing Organization Address City/[facility]/ZIP Code Phon e Number APS SPECTRA [facility] documented in this encounter Visit Diagnoses Not on filedocumented in this encounter
--- OUTSIDE RECORDS SUMMARY | 2021-12-22 11:32 | XMS_ITS | Encounter Summary ---
:1945 Author Organization [facility] Address [address] [place] [address] Care Team Providers Name Role Phone Unavailable Primary Care Provider Unavailable Encounter Details Date Type Department Care Team Description 11/20/2019 Orders Only [facility] O f Ernie Guzmán MD [address] [place] [address] [place], [place] [phone] (Wo rk) Social History Tobacco Use [...] 11/21/2019 Unless otherwise specified, test(s) performed at: [facility], [address] [place] [address] SECOND RIGGER: Alec Payan M.D. For any questions, please [...] APS SPECTRA [facility] (ABNORMAL) [facility] Signature BUN 51 [...] 11/21/2019 Unless otherwise specified, test(s) performed at: [facility], [address] [place] [address] SECOND RIGGER: Alec Payan M.D. For any questions, please call customer service at FREQUENCY:MONTHLY Resulting Agency Comment Specimen source: Serum Ernie Pompa MD LAB BLOOD ORDERABLES Performing Organization Address City/State/ZIP Code Phon e Number APS SPECTRA [facility] (ABNORMAL) HEMATOLOGY (11/20/2019) [facility] gist Method Time Signature WBC 6.23 4.80 [...] 11/21/2019 Unless otherwise specified, test(s) performed at: [facility], [address] [place] [address] SECOND RIGGER: Alec Payan M.D. For any questions, please call customer service at FREQUENCY:MONTHLY Resulting Agency Comment Specimen source: Blood Ernie Pompa MD LAB BLOOD ORDERABLES Performing Organization Address City/State/ZIP Code Phon e Number APS SPECTRA [facility] documented in this encounter Visit Diagnoses Not on filedocumented in this encounter
--- OUTSIDE RECORDS SUMMARY | 2021-12-22 11:32 | XMS_ITS | Encounter Summary ---
:1945 Author Organization [facility] Address [address] [place] [address] Care Team Providers Name Role Phone Unavailable Primary Care Provider Unavailable Encounter Details Date Type Department Care Team Description 12/18/2019 Orders [facility] O f Ernie Guzmán MD [address] [place] [address] [place], [place] [phone] (Wo rk) Social History Tobacco Use [...] 12/19/2019 Unless otherwise specified, test(s) performed at: [facility], [address] [place] [address] TELECOMMUNICATIONS ANALYST: Alec Payan M.D. For any questions, please call customer service at FREQUENCY:OTHER Resulting Agency Comment Specimen source: Blood Ernie Pompa MD LAB BLOOD ORDERABLES Performing Organization Address City/State/ZIP Code Phon e Number APS SPECTRA [facility] documented in this encounter Visit Diagnoses Not on filedocumented in this encounter
--- OUTSIDE RECORDS SUMMARY | 2021-12-22 11:32 | XMS_ITS | Encounter Summary ---
:1945 Author Organization [facility] Address [address] [place] [address] Care Team Providers Name Role Phone Unavailable Primary Care Provider Unavailable Encounter Details Date Type Department Care Team Description 11/27/2019 Orders [facility] O f Ernie Guzmán MD [address] [place] [address] [place], [place] [phone] (Wo rk) Social History Tobacco Use [...] in this encounter Results (ABNORMAL) HEMATOLOGY (11/27/2019) [facility] gist Method Time Signature Neutrophils 77.3 [...] 11/29/2019 Unless otherwise specified, test(s) performed at: [facility], [address] [place] [address] CHIEF CONSOLE OPERATOR: Alec Payan M.D. For any questions, please call customer service at FREQUENCY:OTHER Resulting Agency Comment Specimen source: Blood Ernie Pompa MD LAB BLOOD ORDERABLES Performing Organization Address City/State/ZIP Code Phon e Number APS SPECTRA [facility] documented in this encounter Visit Diagnoses Not on filedocumented in this encounter
--- OUTSIDE RECORDS SUMMARY | 2021-12-22 11:32 | XMS_ITS | Encounter Summary ---
:1945 Author Organization [facility] Address [address] [place] [address] Care Team Providers Name Role Phone Unavailable Primary Care Provider Unavailable Encounter Details Date Type Department Care Team Description 12/25/2019 Treatment [facility] O Ernie Gómez MD [address] [place] [address] [place], [place] [phone] (Wo rk) Social History Tobacco Use Types Packs/Day Years Used Date Smoking Tobacco: Unknown Comments: Smoking History Info:Patient n ot screened Sex Assigned at Date Recorded Not on file documented as of this encounter Miscellaneous Notes Dialysis Note - Ernie Pompa MD - 12/25/2019 11:33 AM CDT Date: Dec 25, 2019 Patient Name: Shaun Ocampo : 1945 Chart #: [id number] Sex: M This patient was personally seen [...] AM ) BP (sit): 118/50 AP(-) / ORGANIC SECTION TECHNICAL LEAD: 258/222 Pulse: 64 Chairside data as of [...] Access Flow > 2000 > 2000 1011 INSPECTOR OPTICAL INSTRUMENT: Ernie Pompa MD LOCATION: [place] [phone] SCHEDULE: M-W- 2nd Shift EDW: kg. DIALYZER: [...] prescription. Vascular Access Assessment Type of access: Wanzzyx18/2019 Surgeon Annita KUMARW Access working well Anemia [...] above goal. Intact PTH is below goal. Fibre Cement Moulder will adjust binders and vitamin D per [...]
--- OUTSIDE RECORDS SUMMARY | 2021-12-22 11:32 | XMS_ITS | Encounter Summary ---
:1945 Author Organization [facility] Address [address] [place] [address] Care Team Providers Name Role Phone Unavailable Primary Care Provider Unavailable Encounter Details Date Type Department Care Team Description 10/16/2019 Orders Only [facility] O f Ernie Guzmán MD [address] [place] [address] [place], [place] [phone] (Wo rk) Social History Tobacco Use [...] in this encounter Results (ABNORMAL) HEMATOLOGY (10/16/2019) [facility] gist Method Time Signature [...] 10/17/2019 Unless otherwise specified, test(s) performed at: [facility], [address] [place] [address] TECHNICAL SALES SUPPORT MANAGER: Alec Payan M.D. For any questions, please call customer service at FREQUENCY:OTHER Resulting Agency Comment Specimen source: Blood Ernie Pompa MD LAB BLOOD ORDERABLES Performing Organization Address City/State/ZIP Code Phon e Number APS SPECTRA [facility] documented in this encounter Visit Diagnoses Not on filedocumented in this encounter
--- OUTSIDE RECORDS SUMMARY | 2021-12-22 11:32 | XMS_ITS | Encounter Summary ---
:1945 Author Organization [facility] Address [address] [place] [address] Care Team Providers Name Role Phone Unavailable Primary Care Provider Unavailable Encounter Details Date Type Department Care Team Description 11/06/2019 Orders Only [facility] O f Ernie Guzmán MD [address] [place] [address] [place], [place] [phone] (Wo rk) Social History Tobacco Use [...] in this encounter Results (ABNORMAL) HEMATOLOGY (11/06/2019) [facility] gist Method Time Signature Neutrophils 75.2 (H) [...] 11/07/2019 Unless otherwise specified, test(s) performed at: [facility] [address] [place] [address] NUCLEAR TECHNOLOGIST: Alec Payan M.D. For any questions, please call customer service at FREQUENCY:OTHER Resulting Agency Comment Specimen source: Blood Ernie Pompa MD LAB BLOOD ORDERABLES Performing Organization Address City/State/ZIP Code Phon e Number APS SPECTRA [facility] documented in this encounter Visit Diagnoses Not on filedocumented in this encounter
--- OUTSIDE RECORDS SUMMARY | 2021-12-22 11:32 | XMS_ITS | Encounter Summary ---
:1945 Author Organization [facility] Address [address] [place] [address] Care Team Providers Name Role Phone Unavailable Primary Care Provider Unavailable Encounter Details Date Type Department Care Team Description 11/04/2019 Orders Only [facility] O f Ernie Guzmán MD [address] [place] [address] [place], [place] [phone] (Wo rk) Social History Tobacco Use [...] in this encounter Results (ABNORMAL) HEMATOLOGY (11/04/2019) [facility] gist Method Time Signature Neutrophils [...] 11/05/2019 Unless otherwise specified, test(s) performed at: [facility], [address] [place] [address] FIBERGLASS BOAT BUILDER: Alec Payan M.D. For any questions, please call customer service at FREQUENCY:OTHER Resulting Agency Comment Specimen source: Blood rEnie Pompa MD LAB BLOOD ORDERABLES Performing Organization Address City/State/ZIP Code Phon e Number APS SPECTRA [facility] documented in this encounter Visit Diagnoses Not on filedocumented in this encounter
--- OUTSIDE RECORDS SUMMARY | 2021-12-22 11:32 | XMS_ITS | Encounter Summary ---
:1945 Author Organization [facility] Address [address] [place] [address] Care Team Providers Name Role Phone Unavailable Primary Care Provider Unavailable Encounter Details Date Type Department Care Team Description 11/20/2019 Treatment [facility] O Ernie Gómez MD [address] [place] [address] [place], [place] [address] [phone] (Wo rk) Social History Tobacco Use Types Packs/Day Years Used Date Smoking Tobacco: Unknown Comments: Smoking History Info:Patient n ot screened Sex Assigned at Date Recorded Not on file documented as of this encounter Miscellaneous Notes Dialysis Note - Ernie Pompa MD - 11/20/2019 11:34 AM CDT Date: Nov 20, 2019 Patient Name: Shaun Ocampo : 1945 Chart #: [id number] Sex: M This patient was personally seen [...] AM ) BP (sit): 126/49 AP(-) / CEMENT BREAKER: 230/186 Pulse: 64 Chairside data as of [...] 08/23/2019 Access Flow 1011 1591 > 2000 SUPERVISOR METAL CANS: Ernie Pompa MD LOCATION: [place] [phone] SCHEDULE: -W- 2nd Shift EDW: kg. DIALYZER: [...] He had infiltration last week, dialyzed at [facility] on Sat and went well, [...] prescription. Vascular Access Assessment Type of access: Vjjtefz14/2019 Surgeon - Lary GARDNER Access working well [...] above goal. Intact PTH is below goal. Marine Mechanic will adjust binders and vitamin D [...]
--- OUTSIDE RECORDS SUMMARY | 2021-12-22 11:32 | XMS_ITS | Encounter Summary ---
:1945 Author Organization [facility] Address [address] [place] [address] Care Team Providers Name Role Phone Unavailable Primary Care Provider Unavailable Encounter Details Date Type Department Care Team Description 10/23/2019 Orders Only [facility] O f Ernie Guzmán MD [address] [place] [address] [place], [place] [phone] (Wo rk) Social History Tobacco Use [...] 10/25/2019 Unless otherwise specified, test(s) performed at: [facility] [address] [place] [address] ANVIL WORKER: Alec Payan M.D. For any questions, please call customer service at FREQUENCY:MONTHLY Resulting Agency Comment Specimen source: Serum Ernie Pompa MD LAB BLOOD ORDERABLES Performing Organization Address City/State/ZIP Code Phon e Number APS SPECTRA [facility] (ABNORMAL) HEMATOLOGY (10/23/2019) [facility] gist Method Time Signature WBC 6.46 [...] 10/24/2019 Unless otherwise specified, test(s) performed at: [facility] [address] [place] [address] ANVIL WORKER: Alec Payan M.D. For any questions, please call customer service at FREQUENCY:MONTHLY Resulting Agency Comment Specimen source: Blood Ernie Pompa MD LAB BLOOD ORDERABLES Performing Organization Address City/State/ZIP Code Phon e Number APS SPECTRA [facility] documented in this encounter Visit Diagnoses Not on filedocumented in this encounter
--- OUTSIDE RECORDS SUMMARY | 2021-12-22 11:32 | XMS_ITS | Encounter Summary ---
:1945 Author Organization [facility] Address [address] [place] [address] Care Team Providers Name Role Phone Unavailable Primary Care Provider Unavailable Encounter Details Date Type Department Care Team Description 11/06/2019 Treatment [facility] O Ernie Gómez MD [address] [place] [address] [place], [place] [address] [phone] (Wo rk) Social History Tobacco Use Types Packs/Day Years Used Date Smoking Tobacco: Unknown Comments: Smoking History Info:Patient n ot screened Sex Assigned at Date Recorded Not on file documented as of this encounter Miscellaneous Notes Dialysis Note - Ernie Pompa MD - 11/06/2019 12:22 PM CDT Date: Nov 06, 2019 Patient Name: Shaun Ocampo : 1945 Chart #: [id number] Sex: M This patient was personally seen [...] PM ) BP (sit): 139/63 AP(-) / ADJUNCT INSTRUCTOR: 235/181 Pulse: 64 Chairside data as of [...] IVP 1X Week During Dialysis 10/28/2019 10/19/2020 CAT SCAN TECH: Ernie Pompa MD LOCATION: [phone] SCHEDULE: M-W- 2nd Shift EDW: kg. DIALYZER: [...] had infiltration last week, dialyzed at [facility] on Sat and went well, access ok [...] prescription. Vascular Access Assessment Type of access: [id number]/2019 Surgeon - Lary KUMARW Access working well [...] above goal. Intact PTH is below goal. Food And Beverage Associate will adjust binders and vitamin D [...]
--- OUTSIDE RECORDS SUMMARY | 2021-12-22 11:32 | XMS_ITS | Encounter Summary ---
:1945 Author Organization [facility] Address [address] [place] [address] Care Team Providers Name Role Phone Unavailable Primary Care Provider Unavailable Encounter Details Date Type Department Care Team Description 12/11/2019 Orders Only [facility] O f Ernie Guzmán MD [address] [place] [address] [place], [place] [phone] (Wo rk) Social History Tobacco Use [...] 12/12/2019 Unless otherwise specified, test(s) performed at: [facility], [address] [place] [address] CALCULATOR OPERATOR: Alec Payan M.D. For any questions, please call customer service at FREQUENCY:OTHER Resulting Agency Comment Specimen source: Blood Ernie Pompa MD LAB BLOOD ORDERABLES Performing Organization Address City/State/ZIP Code Phon e Number APS SPECTRA [facility] documented in this encounter Visit Diagnoses Not on filedocumented in this encounter
--- OUTSIDE RECORDS SUMMARY | 2021-12-22 11:32 | XMS_ITS | Encounter Summary ---
:1945 Author Organization [facility] Address [address] [place] [address] Care Team Providers Name Role Phone Unavailable Primary Care Provider Unavailable Encounter Details Date Type Department Care Team Description 10/28/2019 [facility] Only [facility] O f Ernie Guzmán MD [address] [place] [address] [place], [place] [phone] (Wo rk) Social History Tobacco Use [...] MD LAB BLOOD ORDERABLES Performing Organization Address City/[facility] Phon e Number APS SPECTRA [facility] POST CHEMISTRY (10/28/2019) P athologist Signature BUN Post 13 6 - 19 APS SPECTRA Dialysis mg/dL [facility] Specimen (Source) Anatomical Collection Method Collection Time Re ceived Time Location / / Volume Laterality 10/28/2019 10/31/2019 3:11 PM CDT Narrative APS SPECTRA [facility] - 10/31/2019 Unless otherwise specified, test(s) performed at: [facility], [address] [place] [address] HOLE DIGGER: Alec Payan M.D. For any questions, please call customer service at FREQUENCY:OTHER Resulting Agency Comment Specimen source: Plasma Ernie Pompa MD LAB BLOOD ORDERABLES Performing Organization Address [facility] Phon e Number APS SPECTRA [facility] (ABNORMAL) Spectrae Chemistry (10/28/2019) P athologist Signature BUN 54 (H) 6 - 19 APS SPECTRA mg/dL [facility] Specimen (Source) Anatomical Collection Method Collection Time Re ceived Time Location / / Volume Laterality 10/28/2019 10/29/2019 4:43 PM CDT Narrative APS SPECTRA [facility] - 10/29/2019 Unless otherwise specified, test(s) performed at: [facility], [address] [place] [address] HOLE DIGGER: Alec Payan M.D. For any questions, please call customer service at FREQUENCY:OTHER Resulting Agency Comment Specimen source: Serum Ernie Pompa MD LAB BLOOD ORDERABLES Performing Organization Address [facility] Phon e Number APS SPECTRA [facility] documented in this encounter Visit Diagnoses Not on filedocumented in this encounter
--- OUTSIDE RECORDS SUMMARY | 2021-12-22 11:33 | XMS_ITS | Encounter Summary ---
:1945 Author Organization [facility] Address [address] [place] [address] Care Team Providers Name Role Phone Unavailable Primary Care Provider Unavailable Encounter Details Date Type Department Care Team Description 09/18/2019 [facility] Only [facility] O f Ernie Guzmán MD [address] [place] [address] [place], [place] [phone] (Wo rk) Social History Tobacco Use [...] 09/20/2019 Unless otherwise specified, test(s) performed at: [facility], [address] [place] [address] SHREDDER PICKER: Alec Payan M.D. For any questions, please [...] 09/19/2019 Unless otherwise specified, test(s) performed at: [facility], [address] [place], [place] [id number] SHREDDER PICKER: Alec Payan M.D. For any questions, please [...] Performing Organization Address [facility] Code Phon e [...] BANK TEST ORDERABL ES Performing Organization Address City/[facility]/ZIP Code [...] 09/19/2019 Unless otherwise specified, test(s) performed at: [facility], [address] [place] [address] SHREDDER PICKER: Alec Payan M.D. For any questions, please call customer service at FREQUENCY:MONTHLY Resulting Agency Comment Specimen source: Serum Ernie Pompa MD LAB BLOOD ORDERABLES Performing Organization Address City/State/ZIP Code Phon e Number APS SPECTRA [facility] (ABNORMAL) HEMATOLOGY (09/18/2019) [facility] gist Method Time Signature WBC 5.19 [...] 09/19/2019 Unless otherwise specified, test(s) performed at: [facility], [address] [place] [address] SHREDDER PICKER: Alec Payan M.D. For any questions, please call customer service at FREQUENCY:MONTHLY Resulting Agency Comment Specimen source: Blood Ernie Pompa MD LAB BLOOD ORDERABLES Performing Organization Address City/State/ZIP Code Phon e Number APS SPECTRA [facility] documented in this encounter Visit Diagnoses Not on filedocumented in this encounter
--- OUTSIDE RECORDS SUMMARY | 2021-12-22 11:33 | XMS_ITS | Encounter Summary ---
:1945 Author Organization [facility] Address [address] [place] [address] Care Team Providers Name Role Phone Unavailable Primary Care Provider Unavailable Encounter Details Date Type Department Care Team Description 08/21/2019 Orders Only [facility] O f Ernie Guzmán MD [phone] [place] [address] [place], [place] [phone] (Wo rk) Social History Tobacco Use [...] 08/23/2019 Unless otherwise specified, test(s) performed at: [facility], [address] [place], [place] [id number] INTERFACE DEVELOPER: Alec Payan M.D. For any questions, [...] 08/23/2019 Unless otherwise specified, test(s) performed at: [facility], [address] [place] [address] INTERFACE DEVELOPER: Alec Payan M.D. For any questions, please call customer service at FREQUENCY:MONTHLY Resulting Agency Comment Specimen source: Plasma Ernie Pompa MD LAB BLOOD ORDERABLES Performing Organization Address City/State/ZIP Code Phon e Number APS SPECTRA [facility] (ABNORMAL) Spectrae Chemistry (08/21/2019) [facility] Method Time Signature BUN 40 (H) [...] 08/23/2019 Unless otherwise specified, test(s) performed at: [facility], [address] [place] [address] INTERFACE DEVELOPER: Alec Payan M.D. For any questions, [...] 08/22/2019 Unless otherwise specified, test(s) performed at: [facility], [address] [place] [address] INTERFACE DEVELOPER: Alec Payan M.D. For any questions, please call customer service at FREQUENCY:MONTHLY Resulting Agency Comment Specimen source: Blood Ernie Pompa MD LAB BLOOD ORDERABLES Performing Organization Address City/State/ZIP Code Phon e Number APS SPECTRA [facility] documented in this encounter Visit Diagnoses Not on filedocumented in this encounter
--- OUTSIDE RECORDS SUMMARY | 2021-12-22 11:33 | XMS_ITS | Encounter Summary ---
:1945 Author Organization [facility] Address [address] [place] [address] Care Team Providers Name Role Phone Unavailable Primary Care Provider Unavailable Encounter Details Date Type Department Care Team Description 05/10/2019 Orders Only [facility] O f Ernie Guzmán MD [address] [place] [address] [place], [place] [phone] (Wo rk) Social History Tobacco Use [...] / Volume Laterality 05/10/2019 05/11/2019 9:28 AM OPTICAL MANAGER Narrative APS SPECTRA [facility] - 05/11/2019 Unless otherwise specified, test(s) performed at: [facility], [address] [place] [address] ASSISTANT MANAGER BILINGUAL: Tawanna green M.D. For any questions, please call customer service at FREQUENCY:OTHER Resulting Agency Comment Specimen source: Blood Ernie Pompa MD LAB BLOOD ORDERABLES Performing Organization Address City/State/ZIP Code Phon e Number APS SPECTRA [facility] documented in this encounter Visit Diagnoses Not on filedocumented in this encounter
--- OUTSIDE RECORDS SUMMARY | 2021-12-22 11:33 | XMS_ITS | Encounter Summary ---
:1945 Author Organization [facility] Address [address] [place] [address] Care Team Providers Name Role Phone Unavailable Primary Care Provider Unavailable Encounter Details Date Type Department Care Team Description 05/15/2019 Orders Only [facility] O f Ernie Guzmán MD [address] [place] [address] [place], [place] [phone] (Wo rk) Social History Tobacco Use Types Packs/Day Years Used Date Smoking Tobacco: Unknown Comments: Smoking History Info:Patient n ot screened Sex Assigned at Date Recorded Not on file documented as of this encounter Plan of Treatment Not on filedocumented as of this encounter Procedures Procedure Name Priority Date/Time Associated Comments Diagnosis POST CHEMISTRY Routine 05/15/2019 2:24 PM Results for this NEW CAR MAKE READY MECHANIC procedure are i n the results section. HD KINETICS Routine 05/15/2019 10:08 AM Results for this [employer] READ[employer] MECHANIC procedure are i n the results section. HEMATOLOGY Routine 05/15/2019 10:08 AM Results for this [employer] READ[employer] MECHANIC procedure are i n the results section. CHEMISTRY Routine 05/15/2019 10:08 AM Results for this NEW [employer] MAKE READ[employer] MECHANIC procedure are i n the results section. SPECTRA [facility] Routine 05/15/2019 Results for t his RESULTS procedure are i n the results section. documented in this encounter Results POST CHEMISTRY (05/15/2019 2:24 PM NEW CAR MAKE READY MECHANIC) P athologist Signature BUN Post APS SPECTRA Dialysis mg/dL [facility] Specimen Anatomical Collection Method Collection Time Receive d Time (Source) Location / / Volume Laterality 05/15/2019 2:24 PM 0 9:40 NEW CAR MAKE READY MECHANIC AM NEW CAR MAKE READY MECHANIC Narrative APS SPECTRA [facility] - 05/15/2019 2:[address] Unless otherwise specified, test(s) performed at: [facility], [address] [place] [address] SHEET PILE DRIVER OPERATOR: Tawanna green M.D. For any questions, please call customer service at FREQUENCY:OTHER Resulting Agency Comment Specimen source: Plasma Ernie Pompa MD LAB BLOOD ORDERABLES Performing Organization Address [facility] Phon e Number APS SPECTRA [facility] (ABNORMAL) HD KINETICS (05/15/2019 10:08 AM NEW CAR MAKE READY MECHANIC) P athologist Signature % Urea 62 (L) 65 - 80 % APS SPECTRA Reduction [facility] Specimen Anatomical Collection Method Collection Time Receive d Time (Source) Location / / Volume Laterality 05/15/2019 10:08 05/16/2019 AM NEW CAR MAKE READY MECHANIC 10:07 AM NEW CAR MAKE READY MECHANIC Narrative APS SPECTRA [facility] - 05/15/2019 10:08 AM NEW CAR MAKE READY MECHANIC Unless otherwise specified, test(s) performed at: [facility], [address] [place], [place] [id number] SHEET PILE DRIVER OPERATOR: Tawanna green M.D. For any questions, please call customer service at FREQUENCY:OTHER Resulting Agency Comment Specimen source: Serum Ernie Pompa MD LAB BLOOD ORDERABLES Performing Organization Address [facility] Phon e Number APS SPECTRA [facility] (ABNORMAL) Spectrae Chemistry (05/15/2019 10:08 AM NEW CAR MAKE READY MECHANIC) P athologist Signature BUN 29 (H) 6 - 19 APS SPECTRA mg/dL [facility] Specimen Anatomical Collection Method Collection Time Receive d Time (Source) Location / / Volume Laterality 05/15/2019 10:08 05/16/2019 AM NEW CAR MAKE READY MECHANIC 10:07 AM NEW CAR MAKE READY MECHANIC Narrative APS SPECTRA [facility] - 05/15/2019 10:08 AM NEW CAR MAKE READY MECHANIC Unless otherwise specified, test(s) performed at: [facility], [address] [place], [place] [id number] SHEET PILE DRIVER OPERATOR: Tawanna green M.D. For any questions, please call customer service at FREQUENCY:OTHER Resulting Agency Comment Specimen source: Serum Ernie Pompa MD LAB BLOOD ORDERABLES Performing Organization Address City/[facility] Phon e Number APS SPECTRA [facility] (ABNORMAL) HEMATOLOGY (05/15/2019 10:08 AM NEW CAR MAKE READY MECHANIC) Analysis Performed At Patho logist Time Signature Hemoglobin 8.2 (L) 14.0 - APS SPECTRA 18.0 g/dL [facility] Hemoglobin x 3 24.6 (L) 42.0 - APS SPECTRA 54.0 % [facility] Specimen Anatomical Collection Method Collection Time Receive d Time (Source) Location / / Volume Laterality 05/15/2019 10:08 05/16/2019 AM NEW CAR MAKE READY MECHANIC 10:48 AM NEW CAR MAKE READY MECHANIC Narrative APS SPECTRA [facility] - 05/15/2019 10:08 AM NEW CAR MAKE READY MECHANIC Unless otherwise specified, test(s) performed at: [facility], [address] [place] [address] SHEET PILE DRIVER OPERATOR: Tawanna green M.D. For any questions, please call customer service at FREQUENCY:OTHER Resulting Agency Comment Specimen source: Blood Ernie Pompa MD LAB BLOOD ORDERABLES Performing Organization Address City/[facility] Phon e Number APS SPECTRA [...]
--- OUTSIDE RECORDS SUMMARY | 2021-12-22 11:33 | XMS_ITS | Encounter Summary ---
:1945 Author Organization [facility] Address [address] [place] [address] Care Team Providers Name Role Phone Unavailable Primary Care Provider Unavailable Encounter Details Date Type Department Care Team Description 08/07/2019 Treatment [facility] f Ernie Guzmán MD [address] [place] [address] [place], [place] [phone] (Wo rk) Social History Tobacco Use Types Packs/Day Years Used Date Smoking Tobacco: Unknown Comments: Smoking History Info:Patient n ot screened Sex Assigned at Date Recorded Not on file documented as of this encounter Miscellaneous Notes Dialysis Note - Ernie Pompa MD - 08/07/2019 5:40 PM CDT Date: August 07, 2019 Patient Name: Shaun Ocampo : 1945 Chart #: [id number] Sex: M This patient was personally seen for a complete visit as part of routine monthly dialysis care. A review of the dialysis treatment, blood pressure, estimated dry weight and recent lab values was made. These were discussed with the patient and staff as necessary. BIOMASS PLANT TECHNICIAN: Ernie Pompa MD LOCATION: [phone] SCHEDULE: M-W-F 2nd Shift EDW: kg. DIALYZER: [...] adequacy Vascular Access Assessment Type of access: [id number]/[email or web address] Surgeon - Lary GARDNER Access working well [...] at goal. Intact PTH is below goal. Narrow Gauge Operator will adjust binders and vitamin D [...]
--- OUTSIDE RECORDS SUMMARY | 2021-12-22 11:33 | XMS_ITS | Encounter Summary ---
:1945 Author Organization [facility] Address [address] [place] [address] Care Team Providers Name Role Phone Unavailable Primary Care Provider Unavailable Encounter Details Date Type Department Care Team Description 07/29/2019 Orders Only [facility] O f Ernie Guzmán MD [address] [place] [address] [place], [place] [phone] (Wo rk) Social History Tobacco Use [...] 07/30/2019 Unless otherwise specified, test(s) performed at: [facility], [address] [place] [address] MANAGER BUSINESS INTELLIGENCE: Alec Payan M.D. For any questions, please call customer service at FREQUENCY:OTHER Resulting Agency Comment Specimen source: Serum Ernie Pompa MD LAB BLOOD ORDERABLES Performing Organization Address City/State/ZIP Code Phon e Number APS SPECTRA [facility] documented in this encounter Visit Diagnoses Not on filedocumented in this encounter
--- OUTSIDE RECORDS SUMMARY | 2021-12-22 11:33 | XMS_ITS | Encounter Summary ---
:1945 Author Organization [facility] Address [address] [place] [address] Care Team Providers Name Role Phone Unavailable Primary Care Provider Unavailable Encounter Details Date Type Department Care Team Description 10/02/2019 Orders Only [facility] O f Ernie Guzmán MD [address] [place] [address] [place], [place] [phone] (Wo rk) Social History Tobacco Use [...] in this encounter Results (ABNORMAL) HEMATOLOGY (10/02/2019) [facility] gist Method Time Signature Neutrophils 74.2 [...] 10/03/2019 Unless otherwise specified, test(s) performed at: [facility], [address] [place] [address] HEEL FINISHER: Alec Payan M.D. For any questions, please call customer service at FREQUENCY:OTHER Resulting Agency Comment Specimen source: Blood Ernie Pompa MD LAB BLOOD ORDERABLES Performing Organization Address City/State/ZIP Code Phon e Number APS SPECTRA [facility] documented in this encounter Visit Diagnoses Not on filedocumented in this encounter
--- OUTSIDE RECORDS SUMMARY | 2021-12-22 11:33 | XMS_ITS | Encounter Summary ---
:1945 Author Organization [facility] Address [address] [place] [address] Care Team Providers Name Role Phone Unavailable Primary Care Provider Unavailable Encounter Details Date Type Department Care Team Description 07/03/2019 [facility] Only [facility] O f Ernie Guzmán MD [address] [place] [address] [place], [place] [phone] (Wo rk) Social History Tobacco Use [...] LAB BLOOD ORDERABLES Performing Organization Address [facility] [place] [facility] Phon e Number [facility] IMMUNO CHEMISTRY (07/03/2019) P athologist Signature Hep B Surface Negative Negative APS SPECTRA Ag [facility] Specimen (Source) Anatomical Collection Method Collection Time Re ceived Time Location / / Volume Laterality 07/03/2019 07/04/2019 8:19 PM CDT Narrative APS SPECTRA [facility] - 07/05/2019 Unless otherwise specified, test(s) performed at: [facility], [address] [place] [address] SUPPLY CRIB ATTENDANT: Alec Payan M.D. For any questions, please call customer service at FREQUENCY:OTHER Resulting Agency Comment Specimen source: Serum Ernie Pompa MD LAB BLOOD ORDERABLES Performing Organization Address [facility] Phon e Number APS SPECTRA [facility] HD KINETICS (07/03/2019) P athologist Signature % Urea 71 65 - 80 % APS SPECTRA Reduction [facility] Specimen (Source) Anatomical Collection Method Collection Time Re ceived Time Location / / Volume Laterality 07/03/2019 07/04/2019 8:19 PM CDT Narrative APS SPECTRA [facility] - 07/05/2019 Unless otherwise specified, test(s) performed at: [facility], [address] [place] [address] SUPPLY CRIB ATTENDANT: Alec Payan M.D. For any questions, please call customer service at FREQUENCY:OTHER Resulting Agency Comment Specimen source: Serum Ernie Pompa MD LAB BLOOD ORDERABLES Performing Organization Address City/[facility] Phon e Number APS SPECTRA [facility] (ABNORMAL) Spectrae Chemistry (07/03/2019) P athologist Signature BUN 35 (H) 6 - 19 APS SPECTRA mg/dL [facility] Specimen (Source) Anatomical Collection Method Collection Time Re ceived Time Location / / Volume Laterality 07/03/2019 07/04/2019 8:19 PM CDT Narrative APS SPECTRA [facility] - 07/05/2019 Unless otherwise specified, test(s) performed at: [facility], [address] [place] [address] SUPPLY CRIB ATTENDANT: Alec Payan M.D. For any questions, please call customer service at FREQUENCY:OTHER Resulting Agency Comment Specimen source: Serum Ernie Pompa MD LAB BLOOD ORDERABLES Performing Organization Address City/[facility] Phon e Number APS SPECTRA [facility] POST CHEMISTRY (07/03/2019) P athologist Signature BUN Post 10 6 - 19 APS SPECTRA Dialysis mg/dL [facility] Specimen (Source) Anatomical Collection Method Collection Time Re ceived Time Location / / Volume Laterality 07/03/2019 07/04/2019 5:30 PM CDT Narrative APS SPECTRA [facility] - 07/04/2019 Unless otherwise specified, test(s) performed at: [facility], [address] [place] [address] SUPPLY CRIB ATTENDANT: Alec Payan M.D. For any questions, please call customer service at FREQUENCY:OTHER Resulting Agency Comment Specimen source: Plasma Ernie Pompa MD LAB BLOOD ORDERABLES Performing Organization Address [facility] [place] [facility] Phon e Number APS [...] 07/04/2019 Unless otherwise specified, test(s) performed at: [facility], [address] [place] [address] SUPPLY CRIB ATTENDANT: Alec Payan M.D. For any questions, please call customer service at FREQUENCY:OTHER Resulting Agency Comment Specimen source: Blood Ernie Pompa MD LAB BLOOD ORDERABLES Performing Organization Address City/[facility] Phon e Number APS SPECTRA [facility] documented in this encounter Visit Diagnoses Not on filedocumented in this encounter
--- OUTSIDE RECORDS SUMMARY | 2021-12-22 11:33 | XMS_ITS | Encounter Summary ---
:1945 Author Organization [facility] Address [address] [place] [address] Care Team Providers Name Role Phone Unavailable Primary Care Provider Unavailable Encounter Details Date Type Department Care Team Description 08/14/2019 Orders Only [facility] O f Ernie Guzmán MD [address] [place] [address] [place], [place] [phone] (Wo rk) Social History Tobacco Use [...] 08/16/2019 Unless otherwise specified, test(s) performed at: [facility], [address] [place] [address] FAMILY THERAPIST: Alec Payan M.D. For any questions, please call customer service at FREQUENCY:OTHER Resulting Agency Comment Specimen source: Blood Ernie Pompa MD LAB BLOOD ORDERABLES Performing Organization Address City/State/ZIP Code Phon e Number APS SPECTRA [facility] documented in this encounter Visit Diagnoses Not on filedocumented in this encounter
--- OUTSIDE RECORDS SUMMARY | 2021-12-22 11:33 | XMS_ITS | Encounter Summary ---
:1945 Author Organization [facility] Address [address] [place] [address] Care Team Providers Name Role Phone Unavailable Primary Care Provider Unavailable Encounter Details Date Type Department Care Team Description 08/28/2019 Orders Only [facility] O f Ernie Guzmán MD [address] [place] [address] [place], [place] [phone] (Wo rk) Social History Tobacco Use [...] 08/29/2019 Unless otherwise specified, test(s) performed at: [facility], [address] [place] [address] DUCO POLISHER: Alec Payan M.D. For any questions, please call customer service at FREQUENCY:OTHER Resulting Agency Comment Specimen source: Blood Ernie Pompa MD LAB BLOOD ORDERABLES Performing Organization Address City/State/ZIP Code Phon e Number APS SPECTRA [facility] documented in this encounter Visit Diagnoses Not on filedocumented in this encounter
--- OUTSIDE RECORDS SUMMARY | 2021-12-22 11:33 | XMS_ITS | Encounter Summary ---
:1945 Author Organization [facility] Address [address] [place] [address] Care Team Providers Name Role Phone Unavailable Primary Care Provider Unavailable Encounter Details Date Type Department Care Team Description 05/22/2019 Treatment [facility] O Ernie Gómez MD [address] [place] [address] [place], [place] [phone] [phone] (Wo rk) Social History Tobacco Use Types Packs/Day Years Used Date Smoking Tobacco: Unknown Comments: Smoking History Info:Patient n ot screened Sex Assigned at Date Recorded Not on file documented as of this encounter Miscellaneous Notes Dialysis Note - Ernie Pompa MD - 05/22/2019 12:28 PM CST Date: May 22, 2019 Patient Name: Shaun Ocampo : 1945 Chart #: [id number] Sex: M This patient was personally seen [...] AM ) BP (sit): n/a AP(-) / SOFTWARE MANAGER: 231/165 Pulse: n/a Chairside data as of [...] 4:0 Actual Treatment Time 04:04 04:01 04:04 HOSPITAL CLINIC ASSISTANT: Ernie Pompa MD LOCATION: [place] [phone] SCHEDULE: -- 2nd Shift EDW: kg. DIALYZER: [...] tablet Take 1 tablet once a day [place] Saline (sodium chloride) 0.65% drops calcitriol 0.25 [...] 800 Vascular Access Assessment Type of access: Jaburus03/2019 Surgeon - Lary GARDNER Advancing needles to [...] at goal. Intact PTH is at goal. Chiropractic Teacher will adjust binders and vitamin D [...]
--- OUTSIDE RECORDS SUMMARY | 2021-12-22 11:33 | XMS_ITS | Encounter Summary ---
:1945 Author Organization [facility] Address [address] [place] [address] Care Team Providers Name Role Phone Unavailable Primary Care Provider Unavailable Encounter Details Date Type Department Care Team Description 05/29/2019 Orders [facility] f Ernie Guzmán MD [address] [place] [address] [place], [place] [phone] (Wo rk) Social History Tobacco Use [...] Provider LAB BLOOD ORDERABLES Performing Organization Address City/[facility] Phon e Number KAMERON (ABNORMAL) HD KINETICS (05/29/2019) P athologist Signature % Urea 64 (L) 65 - 80 % APS SPECTRA Reduction [facility] Specimen (Source) Anatomical Collection Method Collection Time Re ceived Time Location / / Volume Laterality 05/29/2019 05/30/2019 6:23 PM CDT Narrative APS SPECTRA [facility] - 05/30/2019 Unless otherwise specified, test(s) performed at: [facility], [address] [place] [address] STRAIGHT LINE EDGER: Tawanna green M.D. For any questions, please call customer service at FREQUENCY:OTHER Resulting Agency Comment Specimen source: Serum Ernie Pompa MD LAB BLOOD ORDERABLES Performing Organization Address City/[facility] Phon [...] 05/30/2019 Unless otherwise specified, test(s) performed at: [facility], [address] [place] [address] STRAIGHT LINE EDGER: Tawanna green M.D. For any questions, please call customer service at FREQUENCY:OTHER Resulting Agency Comment Specimen source: Serum Ernie Pompa MD LAB BLOOD ORDERABLES Performing Organization Address City/[facility] Phon e Number APS SPECTRA [facility] POST CHEMISTRY (05/29/2019) P athologist Signature BUN Post 10 6 - 19 APS SPECTRA Dialysis mg/dL [facility] Specimen (Source) Anatomical Collection Method Collection Time Re ceived Time Location / / Volume Laterality 05/29/2019 05/30/2019 9:58 AM CDT Narrative APS SPECTRA [facility] - 05/30/2019 Unless otherwise specified, test(s) performed at: [facility], [address] [place], [place] [id number] STRAIGHT LINE EDGER: Tawanna green M.D. For any questions, please call customer service at FREQUENCY:OTHER Resulting Agency Comment Specimen source: Plasma Ernie Pompa MD LAB BLOOD ORDERABLES Performing Organization Address City/[facility] Phon [...] 05/30/2019 Unless otherwise specified, test(s) performed at: [facility], [address] [place], [place] [id number] STRAIGHT LINE EDGER: Tawanna green M.D. For any questions, please call customer service at FREQUENCY:OTHER Resulting Agency Comment Specimen source: Blood Ernie Pompa MD LAB BLOOD ORDERABLES Performing Organization Address City/[facility] Phon e Number APS SPECTRA [facility] documented in this encounter Visit Diagnoses Not on filedocumented in this encounter
--- OUTSIDE RECORDS SUMMARY | 2021-12-22 11:33 | XMS_ITS | Encounter Summary ---
:1945 Author Organization [facility] Address [address] [place] [address] Care Team Providers Name Role Phone Unavailable Primary Care Provider Unavailable Encounter Details Date Type Department Care Team Description 07/24/2019 Orders [facility] O f Ernie Guzmán MD [address] [place] [address] [place], [place] [phone] (Wo rk) Social History Tobacco Use [...] Address [facility] Phon e Number KAMERON (ABNORMAL) Spectrae Chemistry (07/24/2019) P athologist Signature PTH 164 (H) 16 - 80 APS SPECTRA pg/mL [facility] Specimen (Source) Anatomical Collection Method Collection Time Re ceived Time Location / / Volume Laterality 07/24/2019 07/25/2019 6:44 PM CDT Narrative APS SPECTRA [facility] - 07/26/2019 Unless otherwise specified, test(s) performed at: [facility], [address] [place] [address] REPAIR MECHANIC: Alec Payan M.D. For any questions, please call customer service at FREQUENCY:MONTHLY Resulting Agency Comment Specimen source: Plasma Ernie Pompa MD LAB BLOOD ORDERABLES Performing Organization Address [facility] Phon e Number APS SPECTRA [facility] HD KINETICS (07/24/2019) P athologist Signature % Urea 69 65 - 80 % APS SPECTRA Reduction [facility] Specimen (Source) Anatomical Collection Method Collection Time Re ceived Time Location / / Volume Laterality 07/24/2019 07/25/2019 7:05 PM CDT Narrative APS SPECTRA [facility] - 07/26/2019 Unless otherwise specified, test(s) performed at: [facility], [address] [place] [address] REPAIR MECHANIC: Alec Payan M.D. For any questions, please call customer service at FREQUENCY:MONTHLY Resulting Agency Comment Specimen source: Plasma Ernie Pompa MD LAB BLOOD ORDERABLES Performing Organization Address [facility] Phon e Number APS SPECTRA [...] 07/26/2019 Unless otherwise specified, test(s) performed at: [facility], [address] [place] [address] REPAIR MECHANIC: Alec Payan M.D. For any questions, [...] 07/25/2019 Unless otherwise specified, test(s) performed at: [facility], [address] [place], [place] [id number] REPAIR MECHANIC: Alec Payan M.D. For any questions, please call customer service at FREQUENCY:MONTHLY Resulting Agency Comment Specimen source: Plasma Ernie Pompa MD LAB BLOOD ORDERABLES Performing Organization Address City/[facility] Phon e Number APS SPECTRA [...] 07/25/2019 Unless otherwise specified, test(s) performed at: [facility], [address] [place], [place] [id number] REPAIR MECHANIC: Alec Payan M.D. For any questions, please call customer service at FREQUENCY:MONTHLY Resulting Agency Comment Specimen source: Blood Ernie Pompa MD LAB BLOOD ORDERABLES Performing Organization Address City/State/ZIP Code Phon e Number APS SPECTRA [facility] documented in this encounter Visit Diagnoses Not on filedocumented in this encounter
--- OUTSIDE RECORDS SUMMARY | 2021-12-22 11:33 | XMS_ITS | Encounter Summary ---
:1945 Author Organization [facility] Address [address] [place] [address] Care Team Providers Name Role Phone Unavailable Primary Care Provider Unavailable Encounter Details Date Type Department Care Team Description 07/10/2019 Treatment [facility] O Ernie Gómez MD [address] [place] [address] [place], [place] [phone] [phone] (Wo rk) Social History Tobacco Use Types Packs/Day Years Used Date Smoking Tobacco: Unknown Comments: Smoking History Info:Patient n ot screened Sex Assigned at Date Recorded Not on file documented as of this encounter Miscellaneous Notes Dialysis Note - Ernie Pompa MD - 07/10/2019 11:42 AM CDT Date: Jul 10, 2019 Patient Name: Shaun Ocampo : 1945 Chart #: [id number] Sex: M This patient was personally seen [...] AM ) BP (sit): 136/58 AP(-) / SOLVENT RECOVERER: n/a Pulse: 76 Chairside data as of [...] 4:0 Actual Treatment Time 04:04 04:02 04:04 PULLEY WORKER: Ernie Pompa MD LOCATION: [place] [phone] SCHEDULE: M-W- 2nd Shift ACCESS: EDW: kg. [...] (05/01/19) Vascular Access Assessment: Type of access: Pciqtij85/2019 Surgeon - Lary GARDNER Advanced needles to [...]
--- OUTSIDE RECORDS SUMMARY | 2021-12-22 11:33 | XMS_ITS | Encounter Summary ---
:1945 Author Organization [facility] Address [address] [place] [address] Care Team Providers Name Role Phone Unavailable Primary Care Provider Unavailable Encounter Details Date Type Department Care Team Description 05/22/2019 Orders Only [facility] O f Ernie Guzmán MD [address] [place] [address] [place], [place] [phone] (Wo rk) Social History Tobacco Use [...] Volume Laterality 05/22/2019 05/23/2019 10:5 1 PM BRIM CURLER Resulting Agency Comment Specimen source: Plasma Ernie Pompa MD LAB BLOOD ORDERABLES Performing Organization Address City/State/ZIP Code Phon e Number APS SPECTRA [facility] POST CHEMISTRY (05/22/2019) athologist Signature BUN Post 13 6 - 19 APS SPECTRA Dialysis mg/dL [facility] Specimen (Source) Anatomical Collection Method Collection Time Re ceived Time Location / / Volume Laterality 05/22/2019 05/23/2019 10:5 1 PM BRIM CURLER Narrative APS SPECTRA [facility] - 05/24/2019 Unless otherwise specified, test(s) performed at: [facility], [address] [place] [address] HOG ROOM SUPERVISOR: Tawanna green M.D. For any questions, please call customer service at FREQUENCY:MONTHLY Resulting Agency Comment Specimen source: Plasma Ernie Pompa MD LAB BLOOD ORDERABLES Performing Organization Address City/[facility]/ZIP Code Phon e Number [...] Volume Laterality 05/22/2019 05/23/2019 11:2 0 AM BRIM CURLER Narrative APS SPECTRA [facility] - 05/23/2019 Unless otherwise specified, test(s) performed at: [facility], [address] [place] [address] HOG ROOM SUPERVISOR: Tawanna green M.D. For any questions, [...] Volume Laterality 05/22/2019 05/23/2019 12:4 6 PM BRIM CURLER Narrative APS SPECTRA [facility] - 05/23/2019 Unless otherwise specified, test(s) performed at: [facility], [address] [place] [address] HOG ROOM SUPERVISOR: Tawanna green M.D. For any questions, please call customer service at FREQUENCY:MONTHLY Resulting Agency Comment Specimen source: Blood Ernie Pompa MD LAB BLOOD ORDERABLES Performing Organization Address City/State/ZIP Code Phon e Number APS SPECTRA [facility] documented in this encounter Visit Diagnoses Not on filedocumented in this encounter
--- OUTSIDE RECORDS SUMMARY | 2021-12-22 11:33 | XMS_ITS | Encounter Summary ---
:1945 Author Organization [facility] Address [address] [place] [address] Care Team Providers Name Role Phone Unavailable Primary Care Provider Unavailable Encounter Details Date Type Department Care Team Description 05/15/2019 Treatment [facility] Ernie Gómez MD [address] [place] [address] [place], [place] [phone] (Wo rk) Social History Tobacco Use Types Packs/Day Years Used Date Smoking Tobacco: Unknown Comments: Smoking History Info:Patient n ot screened Sex Assigned at Date Recorded Not on file documented as of this encounter Miscellaneous Notes Dialysis Note - Ernie Pompa MD - 05/15/2019 12:58 PM CST Date: May 15, 2019 Patient Name: Shaun Ocampo : 1945 Chart #: [id number] Sex: M This patient was personally seen [...] AM ) BP (sit): 148/53 AP(-) / FUNERAL ARRANGEMENT DIRECTOR: 216/194 Pulse: 62 Chairside data as of [...] 4:0 4:0 Actual Treatment Time 04:01 04:03 MATERIALS HANDLING EQUIPMENT OPERATOR: Ernie Pompa MD LOCATION: [phone] SCHEDULE: -- 2nd Shift EDW: kg. DIALYZER: [...] tablet Take 1 tablet once a day [place] Saline (sodium chloride) 0.65% drops calcitriol 0.25 [...] away) Vascular Access Assessment Type of access: [id number]/2019 Lary GARDNER Anemia Assessment HEMOGLOBIN (G/DL) IN [...] at goal. Intact PTH is at goal. Distributor Of Directories will adjust binders and vitamin D per [...] Name: Shaun Ocampo : 1945 Chart #: [id number] Sex: M Patient Type: ESRD Modality: Hemodialysis Oil Rig Roughneck: Ernie Pompa MD Location: [phone] Schedule: -W- 2nd Shift Initial Access Date [...]
--- OUTSIDE RECORDS SUMMARY | 2021-12-22 11:33 | XMS_ITS | Encounter Summary ---
:1945 Author Organization [facility] Address [address] [place] [address] Care Team Providers Name Role Phone Unavailable Primary Care Provider Unavailable Encounter Details Date Type Department Care Team Description 09/11/2019 Orders [facility] O f Ernie Guzmán MD [address] [place] [address] [place], [place] [phone] (Wo rk) Social History Tobacco Use [...] in this encounter Results (ABNORMAL) HEMATOLOGY (09/11/2019) [facility] gist Method Time Signature Neutrophils 73.8 40.0 [...] 09/13/2019 Unless otherwise specified, test(s) performed at: [facility], [address] [place] [address] CHAIR MAKER: Alec Payan M.D. For any questions, please call customer service at FREQUENCY:OTHER Resulting Agency Comment Specimen source: Blood Ernie Pompa MD LAB BLOOD ORDERABLES Performing Organization Address City/State/ZIP Code Phon e Number APS SPECTRA [facility] documented in this encounter Visit Diagnoses Not on filedocumented in this encounter
--- OUTSIDE RECORDS SUMMARY | 2021-12-22 11:33 | XMS_ITS | Encounter Summary ---
:1945 Author Organization [facility] Address [address] [place] [address] Care Team Providers Name Role Phone Unavailable Primary Care Provider Unavailable Encounter Details Date Type Department Care Team Description 06/26/2019 Treatment [facility] f Ernie Guzmán MD [address] [place] [address] [place], [place] [phone] (Wo rk) Social History Tobacco Use Types Packs/Day Years Used Date Smoking Tobacco: Unknown Comments: Smoking History Info:Patient n ot screened Sex Assigned at Date Recorded Not on file documented as of this encounter Miscellaneous Notes Dialysis Note - Ernie Pompa MD - 06/26/2019 12:47 PM CDT Date: Jun 26, 2019 Patient Name: Shaun Ocampo : 1945 Chart #: [id number] Sex: M This patient was personally seen [...] PM ) BP (sit): 146/80 AP(-) / HOLDER PILE DRIVING: 248/209 Pulse: 79 Chairside data as of [...] 4:0 Actual Treatment Time 04:03 04:02 04:01 PEER TUTOR: Ernie Pompa MD LOCATION: [place] [phone] SCHEDULE: -W- 2nd Shift EDW: kg. DIALYZER: [...] this. Vascular Access Assessment Type of access: Vtnbfff50/2019 Surgeon - Lary GARDNER Advanced needles to [...] at goal. Intact PTH is at goal. Manager Resort will adjust binders and vitamin D per [...]
--- OUTSIDE RECORDS SUMMARY | 2021-12-22 11:33 | XMS_ITS | Encounter Summary ---
:1945 Author Organization [facility] Address [address] [place] [address] Care Team Providers Name Role Phone Unavailable Primary Care Provider Unavailable Encounter Details Date Type Department Care Team Description 07/10/2019 Orders Only [facility] O f Ernie Guzmán MD [address] [place] [address] [place], [place] [phone] (Wo rk) Social History Tobacco Use [...] 07/11/2019 Unless otherwise specified, test(s) performed at: [facility], [address] [place] [address] MATH AND SCIENCE DIVISION CHAIR: Alec Payan M.D. For any questions, please call customer service at FREQUENCY:OTHER Resulting Agency Comment Specimen source: Blood Ernie Pompa MD LAB BLOOD ORDERABLES Performing Organization Address City/State/ZIP Code Phon e Number APS SPECTRA [facility] documented in this encounter Visit Diagnoses Not on filedocumented in this encounter
--- OUTSIDE RECORDS SUMMARY | 2021-12-22 11:33 | XMS_ITS | Encounter Summary ---
:1945 Author Organization [facility] Address [address] [place] [address] Care Team Providers Name Role Phone Unavailable Primary Care Provider Unavailable Encounter Details Date Type Department Care Team Description 09/11/2019 Treatment [facility] Ernie Gómez MD [address] [place] [address] [place], [place] [phone] (Wo rk) Social History Tobacco Use Types Packs/Day Years Used Date Smoking Tobacco: Unknown Comments: Smoking History Info:Patient n ot screened Sex Assigned at Date Recorded Not on file documented as of this encounter Miscellaneous Notes Dialysis Note - Ernie Pompa MD - 09/11/2019 12:23 PM CDT Date: Sep 11, 2019 Patient Name: Shaun Ocampo : 1945 Chart #: [id number] Sex: M This patient was personally seen [...] PM ) BP (sit): 149/59 AP(-) / MUSIC THEORY PROFESSOR: 209/174 Pulse: 66 Chairside data as of [...] 08/23/2019 08/02/2019 Access Flow > 2000 1510 VICE PRESIDENT GLOBAL DIGITAL MARKETING: Ernie Pompa MD LOCATION: [place] [phone] SCHEDULE: -- 2nd Shift ACCESS: EDW: kg. [...] (05/01/19) Vascular Access Assessment: Type of access: Kcpavbl72/2019 Surgeon - Lary GARDNER Access working well [...]
--- OUTSIDE RECORDS SUMMARY | 2021-12-22 11:33 | XMS_ITS | Encounter Summary ---
:1945 Author Organization [facility] Address [address] [place] [address] Care Team Providers Name Role Phone Unavailable Primary Care Provider Unavailable Encounter Details Date Type Department Care Team Description 06/05/2019 Treatment [facility] f Ernie Guzmán MD [address] [place] [address] [place], [place] [phone] (Wo rk) Social History Tobacco Use Types Packs/Day Years Used Date Smoking Tobacco: Unknown Comments: Smoking History Info:Patient n ot screened Sex Assigned at Date Recorded Not on file documented as of this encounter Miscellaneous Notes Dialysis Note - Ernie Pompa MD - 06/05/2019 5:14 PM CDT Date: Jun 05, 2019 Patient Name: Shaun Ocampo : 1945 Chart #: [id number] Sex: M This patient was personally seen for a basic visit as part of routine weekly dialysis care. A reviewof the dialysis treatment, blood pressure, estimated dry weight and recent lab values was made. These were discussed with the patient and staff as necessary. DBA DEVELOPER: Ernie Pompa MD LOCATION: [phone] SCHEDULE: M-W-F 2nd Shift ACCESS: EDW: kg. [...] (05/01/19) Vascular Access Assessment: Type of access: Vwfkxvi53/2019 Surgeon - Lary KUMARW Advanced needles to [...]
--- OUTSIDE RECORDS SUMMARY | 2021-12-22 11:33 | XMS_ITS | Encounter Summary ---
:1945 Author Organization [facility] Address [address] [place] [address] Care Team Providers Name Role Phone Unavailable Primary Care Provider Unavailable Encounter Details Date Type Department Care Team Description 08/28/2019 Treatment [facility] O Ernie Gómez MD [address] [place] [address] [place], [place] [phone] (Wo rk) Social History Tobacco Use Types Packs/Day Years Used Date Smoking Tobacco: Unknown Comments: Smoking History Info:Patient n ot screened Sex Assigned at Date Recorded Not on file documented as of this encounter Miscellaneous Notes Dialysis Note - Ernie Pompa MD - 08/28/2019 12:51 PM CDT Date: Aug 28, 2019 Patient Name: Shaun Ocampo : 1945 Chart #: [id number] Sex: M This patient was personally seen [...] PM ) BP (sit): 147/58 AP(-) / CREDIT ASSISTANT: 198/168 Pulse: 65 Chairside data as of [...] IVP Every Treatment During Dialysis 08/26/2019 09/16/2019 BINMAN: Ernie Pompa MD LOCATION: [phone] SCHEDULE: -- 2nd Shift EDW: kg. DIALYZER: [...] prescription. Vascular Access Assessment Type of access: Kodbdff72/2019 Surgeon - Lary GARDNER Access working well [...] at goal. Intact PTH is below goal. Yardage Control Operator will adjust binders and vitamin [...]
--- OUTSIDE RECORDS SUMMARY | 2021-12-22 11:33 | XMS_ITS | Encounter Summary ---
:1945 Author Organization [facility] Address [address] [place] [address] Care Team Providers Name Role Phone Unavailable Primary Care Provider Unavailable Encounter Details Date Type Department Care Team Description 06/26/2019 Orders [facility] O f Ernie Guzmán MD [address] [place] [address] [place], [place] [phone] (Wo rk) Social History Tobacco Use [...] 06/27/2019 Unless otherwise specified, test(s) performed at: [facility], [address] [place] [address] LICENSING WORKER: Alec Payan M.D. For any questions, please call customer service at FREQUENCY:OTHER Resulting Agency Comment Specimen source: Blood Ernie Pompa MD LAB BLOOD ORDERABLES Performing Organization Address City/State/ZIP Code Phon e Number APS SPECTRA [facility] documented in this encounter Visit Diagnoses Not on filedocumented in this encounter
--- OUTSIDE RECORDS SUMMARY | 2021-12-22 11:33 | XMS_ITS | Encounter Summary ---
:1945 Author Organization [facility] Address [address] [place] [address] Care Team Providers Name Role Phone Unavailable Primary Care Provider Unavailable Encounter Details Date Type Department Care Team Description 09/25/2019 Treatment [facility] Ernie Gómez MD [address] [place] [address] [place], [place] [phone] (Wo rk) Social History Tobacco Use Types Packs/Day Years Used Date Smoking Tobacco: Unknown Comments: Smoking History Info:Patient n ot screened Sex Assigned at Date Recorded Not on file documented as of this encounter Miscellaneous Notes Dialysis Note - Ernie Pompa MD - 09/25/2019 10:54 AM CDT Date: Sep 25, 2019 Patient Name: Shaun Ocampo : 1945 Chart #: [id number] Sex: M This patient was personally seen [...] AM ) BP (sit): 156/55 AP(-) / MARINE OILER: 212/172 Pulse: 63 Chairside data as of [...] 08/23/2019 08/02/2019 Access Flow > 2000 1510 PRIVATE INQUIRY AGENT: Ernie Pompa MD LOCATION: [place] [phone] SCHEDULE: -- 2nd Shift EDW: kg. DIALYZER: [...] prescription. Vascular Access Assessment Type of access: Neyxjxf27/2019 Surgeon Annita KUMARW Access working well Anemia [...] at goal. Intact PTH is below goal. Cloth Burler will adjust binders and vitamin D per [...]
--- OUTSIDE RECORDS SUMMARY | 2021-12-22 11:33 | XMS_ITS | Encounter Summary ---
:1945 Author Organization [facility] Address [address] [place] [address] Care Team Providers Name Role Phone Unavailable Primary Care Provider Unavailable Encounter Details Date Type Department Care Team Description 09/04/2019 [facility] Only [facility] O f Ernie Guzmán MD [phone] [place] [address] [place], [place] [phone] (Wo rk) Social History Tobacco Use [...] 09/05/2019 Unless otherwise specified, test(s) performed at: [facility], [address] [place] [address] DEMO COORDINATOR: Alec Payan M.D. For any questions, please call customer service at FREQUENCY:OTHER Resulting Agency Comment Specimen source: Blood Ernie Pompa MD LAB BLOOD ORDERABLES Performing Organization Address City/State/ZIP Code Phon e Number [facility] documented in this encounter Visit Diagnoses Not on filedocumented in this encounter
--- OUTSIDE RECORDS SUMMARY | 2021-12-22 11:33 | XMS_ITS | Encounter Summary ---
:1945 Author Organization [facility] Address [address] [place] [address] Care Team Providers Name Role Phone Unavailable Primary Care Provider Unavailable Encounter Details Date Type Department Care Team Description 09/25/2019 [facility] Only [facility] O f Ernie Guzmán MD [phone] [place] [address] [place], [place] [phone] (Wo rk) Social History Tobacco Use [...] in this encounter Results (ABNORMAL) HEMATOLOGY (09/25/2019) [facility] gist Method Time Signature Neutrophils 74.2 [...] 09/26/2019 Unless otherwise specified, test(s) performed at: [facility], [address] [place], [place] [id number] VOCATIONAL AIDE: Alec Payan M.D. For any questions, please call customer service at FREQUENCY:OTHER Resulting Agency Comment Specimen source: Blood Ernie Pompa MD LAB BLOOD ORDERABLES Performing Organization Address City/State/ZIP Code Phon e Number [facility] documented in this encounter Visit Diagnoses Not on filedocumented in this encounter
--- OUTSIDE RECORDS SUMMARY | 2021-12-22 11:33 | XMS_ITS | Encounter Summary ---
:1945 Author Organization [facility] Address [address] [place] [address] Care Team Providers Name Role Phone Unavailable Primary Care Provider Unavailable Encounter Details Date Type Department Care Team Description 06/19/2019 Orders Only [facility] O f Ernie Guzmán MD [phone] [place] [address] [place], [place] [phone] (Wo rk) Social History Tobacco Use [...] 06/21/2019 Unless otherwise specified, test(s) performed at: [facility], [address] [place] [address] SHANKER OUT: Alec Payan M.D. For any questions, please [...] 06/21/2019 Unless otherwise specified, test(s) performed at: [facility], [address] [place] [address] SHANKER OUT: Alec Payan M.D. For any questions, please call customer service at FREQUENCY:MONTHLY Resulting Agency Comment Specimen source: Serum Ernie Pompa MD LAB BLOOD ORDERABLES Performing Organization Address [facility] Phon e Number APS [...] Organization Address City/[facility] Code Phon e Number [...] 06/21/2019 Unless otherwise specified, test(s) performed at: [facility], [address] [place] [address] SHANKER OUT: Alec Payan M.D. For any questions, please call customer service at FREQUENCY:MONTHLY Resulting Agency Comment Specimen source: Blood Ernie Pompa MD LAB BLOOD ORDERABLES Performing Organization Address City/[facility] Phon e Number [facility] POST CHEMISTRY (06/19/2019) P athologist Signature BUN Post 13 6 - 19 [facility] Dialysis mg/dL [facility] Specimen (Source) Anatomical Collection Method Collection Time Re ceived Time Location / / Volume Laterality 06/19/2019 06/20/2019 5:07 PM CDT Narrative [facility] - 06/20/2019 Unless otherwise specified, test(s) performed at: [facility], [address] [place] [address] SHANKER OUT: Alec Payan M.D. For any questions, please call customer service at FREQUENCY:MONTHLY Resulting Agency Comment Specimen source: Plasma Ernie Pompa MD LAB BLOOD ORDERABLES Performing Organization Address City/[facility] Phon e Number [facility] documented in this encounter Visit Diagnoses Not on filedocumented in this encounter
--- OUTSIDE RECORDS SUMMARY | 2021-12-22 11:33 | XMS_ITS | Encounter Summary ---
:1945 Author Organization [facility] Address [address] [place] [address] Care Team Providers Name Role Phone Unavailable Primary Care Provider Unavailable Encounter Details Date Type Department Care Team Description 06/12/2019 Orders Only [facility] O f Ernie Guzmán MD [phone] [place] [address] [place], [place] [phone] (Wo rk) Social History Tobacco Use [...] 06/13/2019 Unless otherwise specified, test(s) performed at: [facility], [address] [place] [address] DIRECTOR CHECK: Tawanna green M.D. For any questions, please call customer service at FREQUENCY:OTHER Resulting Agency Comment Specimen source: Blood Ernie Pompa MD LAB BLOOD ORDERABLES Performing Organization Address City/State/ZIP Code Phon e Number [facility] documented in this encounter Visit Diagnoses Not on filedocumented in this encounter
--- OUTSIDE RECORDS SUMMARY | 2021-12-22 11:33 | XMS_ITS | Encounter Summary ---
:1945 Author Organization [facility] Address [address] [place] [address] Care Team Providers Name Role Phone Unavailable Primary Care Provider Unavailable Encounter Details Date Type Department Care Team Description 08/07/2019 Orders Only [facility] O f Ernie Guzmán MD [phone] [place] [address] [place], [place] [phone] (Wo rk) Social History Tobacco Use [...] 08/08/2019 Unless otherwise specified, test(s) performed at: [facility], [address] [place] [address] QUAD STAYER: Alec Payan M.D. For any questions, please call customer service at FREQUENCY:OTHER Resulting Agency Comment Specimen source: Blood Ernie Pompa MD LAB BLOOD ORDERABLES Performing Organization Address City/State/ZIP Code Phon e Number [facility] documented in this encounter Visit Diagnoses Not on filedocumented in this encounter
--- OUTSIDE RECORDS SUMMARY | 2021-12-22 11:33 | XMS_ITS | Encounter Summary ---
:1945 Author Organization [facility] Address [address] [place] [address] Care Team Providers Name Role Phone Unavailable Primary Care Provider Unavailable Encounter Details Date Type Department Care Team Description 07/31/2019 Orders Only [facility] O f Ernie Guzmán MD [phone] [place] [address] [place], [place] [phone] (Wo rk) Social History Tobacco Use [...] 08/01/2019 Unless otherwise specified, test(s) performed at: [facility], [address] [place] [address] TRANSPORTATION EQUIPMENT PAINTER: Alec Payan M.D. For any questions, please call customer service at FREQUENCY:OTHER Resulting Agency Comment Specimen source: Blood Ernie Pompa MD LAB BLOOD ORDERABLES Performing Organization Address City/State/ZIP Code Phon e Number [facility] documented in this encounter Visit Diagnoses Not on filedocumented in this encounter
--- OUTSIDE RECORDS SUMMARY | 2021-12-22 11:34 | XMS_ITS | Clinical Summary ---
:1945 Author Organization [facility] Address [place] [address] Care Team Providers Name Role Phone Liban Leos MD Primary Care Provider [phone] Allergies Active Allergy Reactions Severity Noted Date [...] Dispensed Refills Start Date End Date Status oxygen-air Oxygen for home 1 Device 0 03/12/2019 Ac tive delivery systems use. Liters per (HOME minute: 1-2 per OXYGEN)Indications nasal cannula : Pulmonary HTN Continuous with (HC) portability. Length of need: 3 Months. durable medical [place]arrow wraps, 1 Each 0 06/17/2019 Active equipment right leg (DME)Indications: [id number],circu Lymphedema vesdectq15ny, left leg [id number] iulxgql62su diagnosislymphed emaI89.0 MICROLET TEST DAILY 100 Each 3 07/25/2019 Active LANCETIndications: Type 2 diabetes mellitus with stage 5 chronic kidney disease not on chronic dialysis, without long-term current use of insulin (HC) lidocaine-prilocai APPLY SMALL 0 03/30/2020 Active ne (EMLA) 2.5-2.5 AMOUNT TO ACCESS % cream SITE (AVF) 1 TO 2 HOURS BEFORE DIALYSIS. COVER WITH OCCLUSIVE DRESSING (SARAN WRAP) sevelamer Uses at dialysis 0 04/29/2020 Ac tive carbonate (RENVELA) 800 mg tab tablet medication order Calcitriol Mon, 0 Active composer Mon, and Fridays on dialysis days amoxicillin 4 capsules oral 4 Capsule 3 07/23/2020 A ctive (AMOXIL) 500 mg one hour before capsuleIndications procedure. : Need for SBE (subacute bacterial endocarditis) prophylaxis Contour Next Test TEST ONCE DAILY 100 Each 3 04/03/2021 Active Strips stripIndications: Type 2 diabetes mellitus with stage 5 chronic kidney disease not on chronic dialysis, without long-term current use of insulin (HC) albuterol-ipratrop Inhale 3 mL via 180 mL 3 07/04/2021 Active ium (DUONEB) a nebulizer (2.5-0.5 mg) in 3 every 6 hours if mL NEBULIZATION needed for solutionIndication Shortness of s: Bronchospasm Breath 1st choice. fluticasone Inhale 2 Puffs 36 g 3 07/04/2021 Ac tive propion-salmeteroL by mouth every (ADVAIR) 115-21 12 hours. mcg/actuation inhalerIndications : Bronchospasm pantoprazole Take 1 Tablet 90 Tablet 3 10/15/2021 Ac tive (PROTONIX) 40 mg (40 mg) by mouth delayed-release once daily tabletIndications: before a meal. Chronic GERD metoprolol Take 1/2 tablet 15 Tablet 0 11/30/2021 Ac tive succinate (TOPROL by mouth daily. XL) 25 mg Sustained-Release tabletIndications: Essential hypertension allopurinoL Take 1 tablet by 30 Tablet 0 11/30/2021 Active (ZYLOPRIM) 100 mg mouth once tabletIndications: daily. Essential hypertension atorvastatin Take 1 tablet by 30 Tablet 0 11/30/2021 Active (LIPITOR) 20 mg mouth daily. tabletIndications: Type 2 diabetes mellitus with stage 5 chronic kidney disease not on chronic dialysis, without long-term current use of insulin (HC) b complex-vitamin Take 1 capsule 30 Capsule 0 11/30/2021 Active c-folic acid 1 mg by mouth daily. (Triphrocaps) 1 mg capsuleIndications : Stage 4 chronic kidney disease (HC) fluticasone (50 Instill 1 spray 48 mL 3 12/03/2021 Active mcg per actuation) in each nostril nasal solution once daily. (FLONASE)Indicatio ns: Allergic rhinitis due to pollen, unspecified seasonality metoprolol Take 0.5 Tablets 45 tablet. 3 12/15/2020 Discontinued succinate (TOPROL (12.5 mg) by 2 XL) 25 mg mouth once Sustained-Release daily. tabletIndications: Essential hypertension atorvastatin Take 1 Tablet 90 Tablet 3 12/15/2020 Di scontinued (LIPITOR) 20 mg (20 mg) by mouth 2 tabletIndications: once daily. Diabetes mellitus with neurological manifestations, uncontrolled allopurinoL Take 1 Tablet 90 Tablet 3 12/15/2020 Dis continued (ZYLOPRIM) 100 mg (100 mg) by 2 tabletIndications: mouth once Essential daily. hypertension b complex-vitamin Take 1 Capsule 90 Capsule 3 12/15/202011/30 Discontinued c-folic acid 1 mg by mouth once 2 (Triphrocaps) 1 mg daily. capsuleIndications : Stage 4 chronic kidney disease (HC) fluticasone (50 Inhale 1 [place] 16 g 12 12/15/2020 12/04/19 2 Discontinued mcg per actuation) to both nostrils 2 nasal solution once daily. (FLONASE)Indicatio ns: Allergic rhinitis due to pollen, unspecified seasonality Active Problems Problem Noted Date Depression, recurrent [...] atherosclerosis of unspecified type of vessel , [place] or graft 04/04/2007 Overview: Angiogram/PCI 04/04/07: LAD: 70% stenosis mid, 90% distal. LCx: mild luminal irregularities. RCA: dominant, mild luminal irregularities. EF 60%. LV Pressure = 168/24. RA=12; RV=40/15; PW=16; PA=32/17, me an 22. PCI: TAXUS Stent to Mid LAD, PTCA /BMS to Distal LAD. Unspecified essential hypertension 06/07/2006 Other and unspecified hyperlipidemia 06/07/2006 ESOPHAGEAL REFLUX/BARRETTS ESOPHAGUS 06/07/2006 NEUROPATHY IN OTHER DISEASE/DIABETES 06/07/2006 Type 2 diabetes mellitus with circulatory disorder, [facility] long-term 02/18/2002 current use of insulin Osteoarthrosis, unspecified whether generalized or loc alized, [...] deficiency anemia, unspecified 08/13/200806/20 Overview: Admitted to [facility] 08/12/08 with Hgb 5.6, ferritin 5. Negative colonoscopy. 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 Reportedly negative outpatient capsule study. Chest pain, unspecified 07/17/2020 AORTIC VALVE DISORDER: Moderate to severe 07/17/2020 Overview: -Echo 03/29/07: Mild concentric LVH with normal wall motion. EF 55-60%. Marked KIERAN. Mod . CLAUS 1.3 cm sq. Mean gradient 24 mmHg. Mild PR, TI. Mild pulmonary hypertension. RVSP 39 mmHg +RAP. -S/P AVR 09/03/2008 Acute CHF 07/26/2010 Overview: -Mar 2007 admission to [facility] al End stage renal disease 07/17/2020 Mitral stenosis 07/17/2020 Overview: Moderate to severe by echo 02/2019 Encounters Date Type Specialty Care Team Description 12/08/2021 Office Visit Liban Leos Fol low Up; Immunization/In jection 12/08/2021 Travel 12/01/2021 Refill Liban Leos, Ref ill Request (Fluticasone (50 Mcg Per Act uation) Nasal) 11/30/2021 Orders Only Lab, [facility] 11/30/2021 Travel 11/28/2021 Refill Liban Leos, Ref ill Request (Metoprolol Succinate, Allo purinol, Atorvastatin, ) 10/15/2021 Office Visit Liban Leos, Hos pital F/U (Dontae Kee, 10/09/19 22 - 10/11/2021, mala jung ) 10/15/2021 Travel 10/08/2021 Orders Only Scanner <No scans attac hed> from Last 3 Months Immunizations Name Administration Dates Next Due AMB INFLUENZA IIV3 (AGE 65+ YRS) PF 12/28/2018 (Flu Clinic Only) COVID-19 vaccine (Moderna 05/11/2020, 04/17/2020 100mcg/0.5mL) PF, MDV COVID-19 vaccine (F[employer] Around-BioNTRoc2Loc 10/15/2021 30mcg/0.3mL) 12YO+ THOMAS-SUCROSE PF, MDV Influenza, High-dose Inactivated 12/09/2015, 03/12/2015, Influenza, IIV3 (Age 6-35 mos) 02/01/2011 Influenza, IIV3 (Age >=3 years) 04/19/2013, 04/03/2012, 01/18, 12/21/2009, 12/30/2008 Influenza, IIV4 12/04/2019 Influenza, Inactivated AIIV4 (Age 65+ 12/08/2021 Years) Preserv Free Influenza, Inactivated IIV3 (Age 65+ 01/04/2018, 01/11/2017 [...] in contact with No / Unsu re 12/08/2021 1:43 PM CDT someone who was confirmed or suspected to have Coronavirus/COVID-19? Obstetrics History Last Filed Vital Signs Vital Sign Reading Time Taken Comments Blood Pressure 110/60 12/08/2021 1:48 PM CDT Pulse 67 12/08/2021 1:48 PM CDT Temperature 36.6 ??C (97.9 ??F) 07/21/2020 6:00 PM CDT Respiratory Rate 16 07/21/2020 6:30 PM CDT Oxygen Saturation 96% 12/08/2021 1:48 PM CDT Inhaled Oxygen Concentration - - Weight 110.5 kg (243 lb 9.7 oz) 12/08/2021 1:48 PM CDT Height 171.7 cm (5' 7.6) 12/15/2020 8:05 AM CDT Body Mass Index 37.48 12/15/2020 8:05 AM CDT Plan of Treatment Upcoming Encounters Date Type Specialty Care Team Description 01/28/2022 Office Visit [facility], Emeka Aerial Gunner Superintendent 06/07/2022 Orders Only Lab, [facility] 06/14/2022 Office Visit Liban Leos MD [facility] [place], [place] [phone] (Wo rk) Health Maintenance Due Date Last Done Comments Zoster (shingles) series for age 0508/05/1964 50+ (1 of 2) Colonoscopy through age 75 08/18/2018 08/18/2008 Tetanus booster 08/29/2018 08/29/2008, 03/20/1997 BMI (ht and wt on same day) for 12/15/2021 12/15/2020, 11/19, age 18+ 05/03/2019, Additional history exists Medicare Wellness for age 65+ 12/15/2021 12/15/2020, 2011 Depression screening for age 12+ 12/16/2021 12/16/2020, , 12/18/2019, Additional history exists COVID-19 vaccine series (4 - 02/15/2022 10/15/2021, 021, Booster for Moderna series) 04/17/2020 Lipids for age 45-75 11/30/2026 11/30/2021, 12/08/2020, 12/17/2019, Additional history exists Tdap Completed 08/29/2008 Pneumococcal series for age 65+ Completed 12/09/2015, 06/06/2014, 10/07/2008 Hepatitis C screening for age Completed 11/30/2021 18-79 Influenza for age 65+ Completed 12/08/2021, 12/04/2019, 12/28/2018, Additional history exists Medical Devices Implanted Type Area Real Estate Salesperson Device Shelf Model / Identifier Expiration Serial / Date Lot Anw Hh [id number] Cv Implants N/A: Trinidad 07/13/2010 30 [id number] / Implanted: Qty: 1 on 09/03/[address] [facility] Aortic Lifesciences [id number] / Explanted: at [facility] (Quantity not on file) Valve Jaclyn Procedures Procedure Name Priority Date/Time Associated Comments Diagnosis ANTI HCV Add On 11/30/2021 12:45 Need for hepatitis Resul ts for this PM CDT C screening test procedure a re in the results section. URIC ACID Routine 11/30/2021 12:45 Gout, unspecified Result s for this PM CDT cause, unspecified procedure are in chronicity, the results unspecified site section. HEMOGLOBIN A1C Routine 11/30/2021 12:45 Type 2 diabetes Result s for this PM CDT mellitus with stage procedur e are in 5 chronic kidney the results disease not on section. chronic dialysis, without long-term current use of insulin (HC) LIPID PANEL W REFLEX Routine 11/30/2021 12:45 Type 2 diabetes Results for this MEASURED LDL PM CDT mellitus with stage procedur e are in 5 chronic kidney the results disease not on section. chronic dialysis, without long-term current use of insulin (HC) SCAN-CT INTERPRETATION 10/08/2021 12:00 AM CDT from Last 3 Months Results (ABNORMAL) LIPID PANEL W REFLEX MEASURED LDL (11/30/2021 12:45 PM CDT) [facility] gist Method Time Signature CHOLESTEROL,TOTAL 94 (L) 100 - 199 12/01/2021 [facility] mg/dL 10:04 AM CDT [facility]AT[facility] TRIGLYCERIDES 56 <150 12/01/2021 [facility] mg/dL 10:04 AM CDT [facility] HDL CHOLESTEROL 33 (L) >40 mg/dL 12/01/2021 [facility] 10:04 AM CDT [facility] NON-HDL 61 <145 12/01/2021 [facility] CHOLESTEROL mg/dl 10:04 AM CDT [facility] CHOL/HDL RATIO 2.85 <4.50 12/01/2021 [facility] 10:04 AM CDT [facility] LDL CHOLESTEROL 50 <=130 12/01/2021 [facility] mg/dL 10:04 AM CDT [facility]AT[facility] VLDL CHOLESTEROL 11 <=30 12/01/2021 [facility] mg/dL 10:04 AM CDT [facility] PROVIDER ORDERED RANDOM 12/01/2021 [facility] STATUS 10:04 AM CDT [facility] Specimen Anatomical Collection Method / Collection Time Recei annie Time (Source) Location / Volume Laterality Blood BLOOD SPECIMEN / Venipuncture / 11/30/2021 12:45 11/30 1:44 Unknown Unknown PM CDT PM CDT Liban Leos MD CHEMISTRY Performing Organization Address City/[facility] Code Phon e Number [facility] [address] [place] [address] LABORATORY-CENTRAL 2000 LABORATORY ANTI HCV (11/30/2021 12:45 PM CDT) [facility] Method Time Signature HEPATITIS C Non-Reacti Non-Reacti 12/03/2021 [facility] ANTIBODY ve ve 4:28 PM CDT [facility]AT[facility] Comment: Antibodies to HCV not detected; does not exclude the possibility of exposure to HCV. Specimen Anatomical Collection Method / Collection Time Recei annie Time (Source) Location / Volume Laterality Blood BLOOD SPECIMEN / Venipuncture / 11/30/2021 12:45 11/30 1:44 Unknown Unknown PM CDT PM CDT Liban Leos MD SEND OUTS Performing Organization Address City/[facility]/ZIP [facility] Phon e Number [facility] [address] [place], [place] [address] [address] LABORATORY-CENTRAL 1999 LABORATORY URIC ACID (11/30/2021 12:45 PM CDT) athologist Signature URIC ACID 3.8 3.5 - 7.2 12/01/2021 [facility] mg/dL 10:04 AM CDT LABORATORY-[facility]EN[facility] AL LABORATORY Specimen Anatomical Collection Method / Collection Time Recei annie Time (Source) Location / Volume Laterality Blood BLOOD SPECIMEN / Venipuncture / 11/30/2021 12:45 11/30 1:44 Unknown Unknown PM CDT PM CDT Liban Leos MD CHEMISTRY Performing Organization Address City/State/ZIP Code Phon e Number [employer] [facility] [address] [place] [address] LABORATORY-CENTRAL 2000 LABORATORY HEMOGLOBIN A1C MONITORING (POCT) (11/30/2021 12:45 PM CDT) athologist Signature HEMOGLOBIN A1C 5.7 <=6.4 % 11/30/2021 [facility] MONITORING 1:02 PM CDT [facility] Specimen Anatomical Collection Method / Collection Time Recei annie Time (Source) Location / Volume Laterality Blood BLOOD SPECIMEN / Venipuncture / 11/30/2021 12:45 11/30 1:02 Unknown Unknown PM CDT PM CDT Narrative [facility] - 2021 1:02 PM CDT ? (<=6.9%) ? Indicates good control ? (7.0% to 7.9%) ? Indicates fa ir control ? (>=8.0%) ? Indicates poor control ?? NOTE: ??These thresholds are guideli jeremy and ?individual targets may va ry. Falsely low levels may be seen with: Recent Transfusion, Recent Significant B lood Loss, Hemolytic Diseases, or Falsely elevated levels may be seen with : Untreated Anemias, Splenectomy ? Liban Leos MD CHEMISTRY Performing Organization Address City/[facility]/ZIP Code Phon e Number [facility] [address] [place] [address] SCAN-CT INTERPRETATION (10/08/2021 12:00 AM CDT) Narrative This result has an attachment that is no t available. Scanner OTHER from Last 3 Months Insurance Payer Benefit Plan / Subscriber ID Effective Dates Phone Addre ss Type Group MEDICARE PART B MEDICARE PART B [id number] 2011-Presen ATTN: CLAIMS - HB USE ONLY HB ONLY t [address] [place] [address] BLUE [place]OSS MR BLUE CROSS [id number] 2018-Presen [address] [place] [id number] Advance Directives Latest Code Status on File [...] 9:20 PM 09/19/2008 4:57 PM Care Teams Change Management Analyst Relationship Specialty Start Date End Date Liban Leos MD PCP - General Family Practice 07/17/[address] [place] [address]
--- OUTSIDE RECORDS SUMMARY | 2021-12-22 11:34 | XMS_ITS | Encounter Summary ---
:1945 Author Organization [facility] Address [address] [place] [address] Care Team Providers Name Role Phone Unavailable Primary Care Provider Unavailable Encounter Details Date Type Department Care Team Description 05/01/2019 Orders Only [facility] Ernie Guzmán MD [phone] [place] [address] [place], [place] [phone] (Wo rk) Social History Tobacco Use [...] above test result was obtained using Siemens giddyaur XP chemiluminescent method. Results obtaine d with different assay methods or kits cannot be used interchangeably. Specimen (Source) Anatomical Collection Method Collection Time Re ceived Time Location / / Volume Laterality 05/01/2019 05/02/2019 3:03 PM CARD BOXER Resulting Agency Comment Specimen source: Serum Ernie [...] / Volume Laterality 05/01/2019 05/02/2019 3:03 PM CARD BOXER Narrative APS SPECTRA [facility] - 05/03/2019 Unless otherwise specified, test(s) performed at: [facility], [address] [place], [place] [id number] INSULATION SPRAYER: Tawanna green M.D. For any questions, please call customer service at FREQUENCY:MONTHLY Resulting Agency Comment Specimen source: Serum Ernie Pompa MD LAB BLOOD BANK TEST ORDERABL ES Performing Organization Address City/[facility] Phon e Number APS SPECTRA [facility] (ABNORMAL) Spectrae Chemistry (05/01/2019) P athologist Signature PTH 351 (H) 16 - 80 APS SPECTRA pg/mL [facility] Specimen (Source) Anatomical Collection Method Collection Time Re ceived Time Location / / Volume Laterality 05/01/2019 05/02/2019 8:20 PM CARD BOXER Narrative APS SPECTRA [facility] - 05/03/2019 Unless otherwise specified, test(s) performed at: [facility], [address] [place], [place] [id number] INSULATION SPRAYER: Tawanna green M.D. For any questions, please call customer service at FREQUENCY:MONTHLY Resulting Agency Comment Specimen source: Plasma Ernie Pompa MD LAB BLOOD ORDERABLES Performing Organization Address City/State/[facility] Phon e Number APS SPECTRA [...] / Volume Laterality 05/01/2019 05/02/2019 8:20 PM CARD BOXER Narrative APS SPECTRA [facility] - 05/03/2019 Unless otherwise specified, test(s) performed at: [facility], [address] [place] [address] INSULATION SPRAYER: Tawanna green M.D. For any questions, please call customer service at FREQUENCY:MONTHLY Resulting Agency Comment Specimen source: Blood Ernie Pompa MD LAB BLOOD ORDERABLES Performing Organization Address City/[facility] Phon e Number APS SPECTRA [facility] TRACE ELEMENTS (05/01/2019) P athologist Signature Aluminum <5 0 - 10 APS SPECTRA mcg/L [facility] Comment: This test was developed and its performa nce characteristics determined by [facility]. It has not been cleared or approved by the FDA. The laboratory is regulated under CLIA a s qualified to perform high complexity testing. This test is used fo r clinical purposes. It should not be regarded as investigational or fo r research. Specimen (Source) Anatomical Collection Method Collection Time Re ceived Time Location / / Volume Laterality 05/01/2019 05/02/2019 4:05 PM CARD BOXER Narrative APS SPECTRA [facility] - 05/02/2019 Unless otherwise specified, test(s) performed at: [facility], [address] [place] [address] INSULATION SPRAYER: Tawanna green M.D. For any questions, please call customer service at FREQUENCY:MONTHLY Resulting Agency Comment Specimen source: Serum Ernie Pompa MD LAB BLOOD ORDERABLES Performing Organization Address City/[facility] Phon e Number APS SPECTRA [facility] (ABNORMAL) HD KINETICS (05/01/2019) P athologist Signature % Urea 96 (H) 65 - 80 % APS SPECTRA Reduction [facility] Specimen (Source) Anatomical Collection Method Collection Time Re ceived Time Location / / Volume Laterality 05/01/2019 05/02/2019 3:04 PM CARD BOXER Narrative APS SPECTRA [facility] - 05/02/2019 Unless otherwise specified, test(s) performed at: [facility], [address] [id number] INSULATION SPRAYER: Tawanna green M.D. For any questions, please call customer service at FREQUENCY:MONTHLY Resulting Agency Comment Specimen source: Serum Ernie Pompa MD LAB BLOOD ORDERABLES Performing Organization Address City/State/ZIP Code Phon e Number APS SPECTRA [facility] (ABNORMAL) Spectrae Chemistry (05/01/2019) [facility] gist Method Time Signature BUN 68 [...] / Volume Laterality 05/01/2019 05/02/2019 3:03 PM CARD BOXER Narrative APS SPECTRA [facility] - 05/03/2019 Unless otherwise specified, test(s) performed at: [facility], [address] [place] [address] INSULATION SPRAYER: Tawanna green M.D. For any questions, please call customer service at FREQUENCY:MONTHLY Resulting Agency Comment Specimen source: Serum Ernie Pompa MD LAB BLOOD ORDERABLES Performing Organization Address City/[facility]/ZIP Code Phon e Number APS SPECTRA [facility] (ABNORMAL) POST CHEMISTRY (05/01/2019) P athologist Signature BUN Post 3 (L) 6 - 19 APS SPECTRA Dialysis mg/dL [facility] Specimen (Source) Anatomical Collection Method Collection Time Re ceived Time Location / / Volume Laterality 05/01/2019 05/02/2019 12:5 1 PM CARD BOXER Narrative APS SPECTRA [facility] - 05/02/2019 Unless otherwise specified, test(s) performed at: [facility], [address] [place] [address] INSULATION SPRAYER: Tawanna green M.D. For any questions, please call customer service at FREQUENCY:MONTHLY Resulting Agency Comment Specimen source: Plasma Ernie Pompa MD LAB BLOOD ORDERABLES Performing Organization Address City/State/ZIP [facility] Phon e Number APS SPECTRA [facility] documented in this encounter Visit Diagnoses Not on filedocumented in this encounter
--- OUTSIDE RECORDS SUMMARY | 2021-12-22 11:34 | XMS_ITS | Continuity of Care Document ---
:1945 Author Organization [facility] Dig[facility] Address [address] [address] [place] [address] Phone Care Team Providers Name Role Phone [...] Center, [place] No Sep- Lizz CAMPBELL Digestive [facility] Information Joce. [facility], Endoscopy [address] [address], [address], [address], [id number], [place], [place] [id number], tel:[phone] tel:[phone] Init Hosp[facility] No Sep- Lizz CAMPBELL Referr ing E&m Mod [facility] [place] Information 3 Joce. Provider : [facility], Hospital 2 [address] [facility] [place], [address], [address], [address] [place] [address], [place], [place], [place], [address], [id number], [place], [place] [id number], , [place], tel:+ [place]. [phone] tel: tel:[phone] Subsqt [facility] Ramon No Desean MARTIN Referring Hosp-da E&m Digestive [facility] Information 4-200 Lisa. Provider: [facility], Hosp 9 [address] [facility] Jason CAMPBELL [address], [address] NE, R, [address] [place] [address], [place], [place], [address], [id number], [place], [place] [id number], [place], [place], [place]: [place]. [phone]. [phone] tel: tel: [phone] Init Inpt [facility] Ramon No No Referring Cons New/est [facility] Information 2200 Informat ion Provider: [facility], Hosp [address] [place] [address] Jason CAMPBELL [address], R, [address] [place] [address], [place], [address], [id number], [place], [place], tel: [phone] tel:[phone] MNGI Ramon No Nilton CAMPBELL Referring Digestive [facility] 9-200 Zaida. 3001 P rovider: [facility], [address], Cash CAMPBELL [address], [address], P, [address] [place] [facility] s, [place], [place], Street [place] [id number], [id number], [address], [place] tel: tel:+ s, [place], [phone] . tel:[phone] Subsqt MNGI Ramon No Nesset LINEN AIDE Referring Hosp-da E&m [facility]est[facility] Information 8-200 Ailyn. 30 01 Provider: [facility], Hosp [address] [place], [place] [address] [place] [address], [address], [address], [address] [place] [facility] [address] s, [place], [place], [address], [id number], [id number], [place] [facility]. s, [place], tel: tel:[phone]. [phone] tel:[phone] Init Inpt MNGI Ramon No Cash CAMPBELL Referring Cons New/est Digest[facility] Information 7-200 Bryan. 3001 Provider: [facility] [place], Hosp 9 [facility], Jason CAMPBELL [address], [address], [address], [address] [facility] [address], [place], [place], [address], [id number], [id number], [place] [facility]. s, [place], tel: tel:[phone]. [phone] tel:[phone] Family History Family Member Type Diagnosis Age At Onset No Information Payers Payer name Insurance type Covered alliance party ID Authorization(s ) [employer] Medicare Advantage [id number] Social History Type Description Quantity Date Captured [...]
[2021-12-22 11:43] LABS: Chloride* 95 mmol/L (96-114); Sodium* 133 mmol/L (135-149)
[2021-12-22 11:45] LABS: Aspartate Amino Transferase* 33 U/L (12-35); Bilirubin Total* 1.1 mg/dL (0.1-1.5); Carbon Dioxide* 30 mmol/L (20-32); Creatinine* 3.9 mg/dL (0.5-1.5); Est. Creatinine Clearance* 16.37; Estimated Glomerular Filt Rate 15 ml/min
[2021-12-22 11:46] LABS: Alanine Aminotransferase* 15 U/L (4-50); Alkaline Phosphatase* 133 U/L (40-150); Blood Urea Nitrogen* 28 mg/dL (7-30); Calcium* 9.6 mg/dL (8.4-10.6); Glucose* 118 mg/dL (60-115); Total Protein* 7.8 g/dL (6.0-8.3)
[2021-12-22] MEDS: IPRAT-ALBUT 0.5-2.5 MG/3 ML NEB 1 NEB IH (11:50)
[2021-12-22 12:06] LABS: SARS PCR* Negative SARS-CoV-2 (Negative)
[2021-12-22 12:15] LABS: NT Pro B Type NatriureticPept* 121000 PG/mL (0-450)
[2021-12-22] MEDS: dexAMETHasone 10 MG/ML inj IVP (13:40)
== END 2021-12-22 14:00 | disposition home or self-care (01) ==
PROVIDERS: Emergency Provider Student in an Organized Health Care Education/Training Program; PCP Family Medicine
DX: R06.02 Shortness of breath (principal); R05.9 Cough, unspecified; Z99.2 Dependence on renal dialysis
CPT/HCPCS: 36415; 71045; 80053; 83880; 85025; 87635; 93005; 94640; 99283; 99284; 99285; J1100

== ENCOUNTER 2021-12-26 22:57 | Outpatient (CLI) | payer MEDICARE, SELFPAY ==
--- OUTSIDE RECORDS SUMMARY | 2022-01-04 06:40 | XMS_ITS ---
:1945 Author Organization [facility] DOCUMENT DISCLAIMER The information in the [facility] Continuity of Care Document represents a summary of certain health and medical information. It may not contain the complete medical history for the patient and should be independently verified. The represented time in the document is Eastern Time. PROBLEMS Problem Code Status Onset Date Respiratory syncytial virus as the cause B97.4 Activ e December 23, 2021 of diseases classified elsewhere Gastrointestinal hemorrhage, unspecified K92.2 Activ e November [...] April 29, 2019 Hypoglycemia, unspecified E16.2 Active uary 2019 Paroxysmal atrial fibrillation I48.0 Active April [...] Active (Hectorol) Treatment - push 2021 2022 Heparin Sodium Intermittent 1000 Intravenous March Active (Porcine) 1,000 mid run, Every units - push 2021 Units/mL Systemic Treatment, Total treatment minutes 240 Heparin Sodium Bolus, Every 2000 Intravenous March Active (Porcine) 1,000 Treatment, units - push 2021 Units/mL Systemic Total treatment minutes 240 Mircera Every 2 weeks 200 mcg Intravenous October ctive - push 2021 Etelcalcetide Post 7.5 mg Intravenous October iscontinued (Parsabiv) Dialysis, 3X - push 2021 Week Iron Sucrose Every 100 mg Intravenous November Discontinued (Venofer) Treatment - push 2021 Iron Sucrose 1X Week 50 mg Intravenous November Discontinued (Venofer) - push 2021 Home Medications Medication [...] Sign Value Date / Time Blood Pressure-sitting 129/52 mmHg December 22, 2021 05:52 AM Blood Pressure-standing 131/57 mmHg December 22, 2021 05:52 AM Heart Rate 78 beats per minute December 22, 2021 05: 52 AM Respiratory Rate 16 breaths per minute December 22, 2021 0 5:52 AM Temperature 98.0 deg. F December 22, 2021 05: 52 AM Weight Vital Sign Value Date / Time Estimated Dry Weight 108 kg November 19, 2021 11:59 PM Pre-Dialysis 111.20 kg December 22, 2021 05: 52 AM Post-Dialysis 109.70 kg December 22, 2021 05: 52 AM Other Other Value Date / Time Height 173 cm August 25, 2021 12:00 AM [facility] RESULTS Hematology Result Type Result Value Relevant Interpretation Date Reference Range HGB 10.8 g/dL Males: 14.0 - Low [...] g/dL 2021 Females: 12.0 - 16.0 g/dL WBC (No Diff) 6.23 1000/mcL 4.8-10.8 - December 22 022 thous/mcL RBC 3.51 mill/mcL Males: 4.70 - Low December 22 6.10 mill/mcL Females: 4.20 - 5.40 mill/mcL HGB 10.9 g/dL Males: 14.0 - Low December 22 18.0 g/dL Females: 12.0 - 16.0 g/dL Hemoglobin x 3 32.7 % Male: 14.0 - 18.0 Low December 22, 2021 g/dL; Female: 12.0-16.0 g/dL TIBC 201 mcg/dL 185-515 mcg/dL - December 22 Transferrin Sat. 23 % 20-55% - December 22, 2021 (Calc) Ferritin 630 ng/mL Males: 22 - 322 High December 22, 2021 ng/mL; Females: 10 - 291 ng/mL HCT 34.7 % Males: 42 - 52% Low December 22, 2021 Females: 37 - 47% MCH 31.0 pg 27 - 31 pg/cell - December 22, 2021 MCHC 31.3 g/dL 30 - 36 g/dL - December 22 RDW 17.1 % No Reference High December 22 range provided Platelets 130 1000/mcL 330-315 6899/mcL - December 22, 2021 Iron 46 mcg/dL Females: 30-160 - December 22, 2021 mcg/dL Males: 45-160 mcg/dL UIBC (Calc) 155 mcg/dL 155-355 mcg/dL - December 22 Metabolic/Renal Result Type Result Value Relevant Reference Interpretation Date Range Chloride 96 mEq/L 96-108 mEq/L - December 22 Bicarbonate 24 mEq/L 22-29 mEq/L - December 22 BUN/Creat Ratio 8.4 -20 December 22, 2021 Sodium 133 mEq/L 136-145 mEq/L December 22 Potassium 5.8 mEq/L 3.5-5.1 mEq/L December 22 Creatinine, Serum 6.07 mg/dL 0.6-1.3 mg/dL December BUN 51 mg/dL 6-19 mg/dl December 22 Bone/Mineral Result Type Result Value Relevant Reference Interpretation Date Range Calcium, Total 10.2 mg/dL 8.4-10.2 mg/dL - December 22, 2021 Phosphorus 5.5 mg/dL 2.6-4.5 mg/dL December 22 PTH-Intact, Plasma 451 pg/mL 16 to 80 pg/mL High December 22, 2021 Ca x P Product 56 < 55 December 22 Alkaline Phosphatase 121 U/L Males: 40-129 U/L, - O ct2021 > 15 yrs Females: 35 - 104 U/L, > 15 yrs Magnesium 2.0 mg/dL 1.6-2.6 mg/dL - December 22 Corrected Ca x P 57 < 55 December 22, 2021 Product Liver/Nutrition Result Type Result Value Relevant Reference Interpretation Date Range Total Protein 7.1 g/dL 6.0-8.5 g/dL - December 22 A/G Ratio 1.2 1.0-2.0 - December 22 Albumin (BCG) 3.8 g/dL 3.5-5.2 g/dL - December 22 Globulin (Calc) 3.3 g/dL 1.0 - 2.0 - December 22, 2021 Infectious Diseases Result Type Result Value Relevant Reference Interpretation Date Range Hep B Surface Ab 993 mIU/mL < 10 mIU/mL, Non- - Januar y 2021 (anti-HBs) Immune Hep B core Ab Negative Negative - March 24 Total (anti-HBc) Hep B Surface Ag Negative Negative - December 22, 2021 (HBsAg) DIALYSIS PRESCRIPTION Conventional Hemodialysis Data Element Value Order Date/Time November 19, 2021 Frequency 3X Week Treatment Days MonWedFri Dialyzer 180NRe Optiflux Treatment Time (Total Minutes) 240 min Blood Flow Rate (mL/min) 400 mL/min Dialysate Flow Rate Manual 800 Estimated Dry Weight 108 kg Dialysate Concentrate 2.0 K, 2.5 Ca, 1.0 Mg, 100 D extrose (G2251) Sodium (mEq/L) 138 mEq/L Bicarb Machine Setting (mEq/L) 34 mEq/L Dialysis Access Hemodialysis-AV Fistula-Rangel dard, Left Upper [...] Co mpleted Vaccine, Dose 1 of 2 [id number], October 30, 2019 40.0 mcg Intramuscular Com pleted series 4 of 4 [id number], July 03, 2019 40.0 mcg Intramuscular Comp leted series 3 of 4 RBLCLZK-M-EVESF, June 03, 2019 40.0 mcg Intramuscular Comp leted series 2 of 4 [id number]-G-ZAEPN, May 03, 2019 40.0 mcg Intramuscular C ompleted series 1 of 4 TRANSPLANT WAITLIST STATUS No Information on Transplant Waitlist Status ADVANCE DIRECTIVES Directive Description Ordered By Effective Date Resuscitation status Full Code Ernie Pompa Mar 26 2 DIALYSIS TREATMENTS Conventional Hemodialysis Date Pre-Treatment Post-Treatment Duration BFR Dialysate Dialyzer Dialysis Meds Vitals Vitals (hr) (mL/min) Access Admin November Weight 111.30 Weight 107.10 04:00:00 450 [...] 98.1 deg. F Temperature 97.2 deg. F December Weight 111.20 Weight 109.70 02:41:00 400 2.0 K, 180nre Hemodia lysis-AV Fistula-Standard, Left Upper Arm, Other/Unknown Doxercalciferol (Hectorol); 5mcg,Intravenous - push 2021 kg kg 2.5 Ca, Optiflux Etelca lcetide (Parsabiv); 7.5mg,Intravenous - push 1.0 Mg, Heparin Sodi um (Porcine) 1,000 Units/mL Systemic; 2000units,Intravenous - push 100 Heparin Sodium (Porcine) 1,000 Units/mL Systemic; 1000units,Intravenous - push Dextrose Mircera; 20 0mcg,Intravenous - push (G2251) Blood Pressure-sitting 89/49 mmHg Blood Pressure-sitting 12 9/52 mmHg Blood Pressure-standing 109/42 mmHg Blood Pressure-standing 131/57 mmHg Heart Rate 102 beats per Heart Rate 78 beats per minute minute Respiratory Rate 16 breaths per Respiratory Rate 16 breaths per minute minute Temperature 98.4 deg. F Temperature 98.0 deg. F
--- OUTSIDE RECORDS SUMMARY | 2022-01-04 06:41 | XMS_ITS | Encounter Summary ---
:1945 Author Organization [place] Address [facility] [place] [address] Care Team Providers Name Role Phone Liban Leos Primary Care Provider Ernie Pompa MD Unavailable Reason for Referral Care Coordination (Routine: Next available opening) - Pending Review Specialty Diagnoses / Procedures Referred By Contact Refer red To Contact Diagnoses Other specified counseling Liban Leos [address] [place] [address] Referral ID Status Reason Start Date Expiration Date Visits V isits Requested Authorized [id number] Pending 10/12/2021 10/12/2022 1 1 Review Encounter Details Date Type Department Care Team Description 10/12/2021 Orders Only [facility] [address] Other specified Care Coordination [address] [place] [address] [place] [address] Social History Tobacco Use Types Packs/Day Years Used Date Smoking Tobacco: Never Dip, chew, snus or snuff Smokeless Tobacco: Former Chew Qu it: 1999 Sex Assigned at Date Recorded Not on file COVID-19 Exposure Response Date Recorded In the last 10 days, have you been in contact with No / Unsu re 10/08/2021 6:28 PM CDT someone who was confirmed or suspected to have Coronavirus/COVID-19? documented as of this encounter Plan of Treatment Scheduled Referrals Name Type Priority Associated Diagnoses Order S [facility] Referral Routine: Next Other specified Expected: Discharge - available opening counseling 10/12/2021 Referral to CC (Approximate) , Expires: 10/12/2022 documented as of this encounter Visit Diagnoses Diagnosis Other specified counseling documented in this encounter Care Teams Spiral Weaver Relationship Specialty Start Date End Date Liban Leos PCP - General Family Medicine 10/08/21 [address] [place] [address] Ernie Pompa MD MD Nephrology 10/08/21 [address] [place] [address] documented as of this encounter
--- OUTSIDE RECORDS SUMMARY | 2022-01-04 06:41 | XMS_ITS | Encounter Summary ---
:1945 Author Organization [facility] Address [address] [place] [address] Care Team Providers Name Role Phone Liban Leos Primary Care Provider Ernie Pompa MD Unavailable Reason for Visit Auth/Cert Specialty Diagnoses / Procedures Referred By Contact Refer red To Contact Med Surg Diagnoses UGI bleed UGI bleed Rh 5 Medical Surgical [address] [place], [place] [address] Phone: Fax: Referral ID Status Reason Start Date Expiration Date Visits Requ ested Visits Authorized [id number] 1 1 Encounter Details Date Type Department Care Team Description 10/10/2021 Anesthesia Event M [facility] Olvin Mosley [place] Per[facility] Services MD [place] [address] [place], [place] ANESTHESIA [address] [address] [facility] [phone] [place] [address] Anesthesia Record Procedure Summary Procedure Name Responsible Anesthesia Start Anesthesia Stop Anesthesiologist Time Time ESOPHAGOGASTRODUODENOSCOPY Herman Mosley 10/10/21 0842 09/18 07/09 0918 biopsies (Mouth) MD [place] Events Date Time Event Comment 10/10/2021 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 The f irst vital signs recorded are pre- inducti on. 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
--- OUTSIDE RECORDS SUMMARY | 2022-01-04 06:41 | XMS_ITS | Clinical Summary ---
:1945 Author Organization [facility] Address [address] [place] [id number] Care Team Providers Name Role Phone Liban [...] 20 MG tablet mouth daily fluticasone (FLONASE) [place] 1 spray in 0 12/15/2020 Active 50 [...] 0 12/15/2020 Active (MULTIVITAMIN RENAL) 1 mouth daily MG capsule lidocaine-prilocaine APPLY SMALL AMOUNT 0 08/13/2021 Active (EMLA) 2.5-2.5 % TO ACCESS SITE external cream (AVF) 1 TO 2 HOURS BEFORE DIALYSIS. COVER WITH OCCLUSIVE DRESSING (SARAN WRAP) pantoprazole Take 1 tablet (40 30 tablet 1 10/12/2021 Active (PROTONIX) 40 MG EC mg) by mouth every tabletIndications: UGI morning (before bleed breakfast) albuterol (PROAIR Inhale 2 puffs 18 g 1 12/25/2021 Active HFA/PROVENTIL into the lungs HFA/VENTOLIN HFA) 108 every 4 hours as (90 Base) MCG/ACT needed for inhalerIndications: shortness of RSV bronchitis breath / dyspnea or wheezing guaiFENesin (MUCINEX) Take 2 tablets 30 tablet 0 12/25/2021 Active 600 MG 12 hr (1,200 mg) by tabletIndications: RSV mouth 2 times bronchitis daily Active Problems Problem Noted Date CKD (chronic [...] Encounters Date Type Specialty Care Team Description 12/23/2021 Emergency Med Surg Nakita Pruitt RSV bronchitis (Primary Dx); Annita Perez MD Other hypervolemia; 12/25/2021 Jose NSTEMI (non-ST elevated myocardial infarction) (H); Carmella Nevarez DO ESRD (end stage renal disease) on dialys is (H) Dallin Farah DO 12/23/2021 Travel 10/12/2021 Orders Only FP-IM-PED Deric, Other specified counseling Liban Gruber 10/10/2021 Anesthesia Event Surgery Herman Mosley MD 10/10/2021 Surgery Surgery Lizz, ESOPHAGOGASTROD UODENOSCOPY Joce Rene MD 10/08/2021 Hospital Med Surg [place], UGI bleed - Encounter Florentino Romo MD 10/11/2021 Fadi Viveros DO Amdahl, John, MD Matthews, Jeremiah R, MD 10/08/2021 Travel from Last 3 Months Social History Tobacco Use Types Packs/Day Years Used Date Smoking Tobacco: Never Dip, chew, snus or snuff Smokeless Tobacco: Former Chew Qu it: 2000 Sex Assigned at Date Recorded Not on file COVID-19 Exposure Response Date Recorded In the last 10 days, have you been in contact with No / Unsu re 12/23/2021 7:15 PM CDT someone who was confirmed or suspected to have Coronavirus/COVID-19? Last Filed Vital Signs Vital Sign Reading Time Taken Comments Blood Pressure 90/51 12/25/2021 1:47 PM CDT Pulse 84 12/25/2021 2:10 PM CDT Temperature 36.8 ??C (98.2 ??F) 12/25/2021 1:47 PM CDT Respiratory Rate 20 12/25/2021 2:10 PM CDT Oxygen Saturation 99% 12/25/2021 2:10 PM CDT Inhaled Oxygen Concentration - - Weight 104.4 kg (230 lb 1.6 oz) 12/25/2021 3:59 AM CDT Height 177.8 cm (5' 10) 12/24/2021 2:46 AM CDT Body Mass Index 33.02 12/24/2021 2:46 AM CDT Plan of Treatment Health Maintenance Due [...] 08/06/2011 (SYSTEM ASSIGNED) FALL RISK ASSESSMENT 08/06/2011 DTAP/TDAP/TD IMMUNIZATION 08/29/2018 08/29/2008, 03/20/1997 (2 - Td or Tdap) PHQ-2 (once per calendar 03/20/2021 year) COVID-19 Vaccine (5 - 12/10/2021 10/15/2021, 01/29/2021, Booster for Moderna series) 05/11/2020, Addition al history exists MEDICARE ANNUAL WELLNESS 12/15/2021 12/15/2020 VISIT A1C 03/01/2022 11/30/2021, 05/18/2021 BMP 03/27/2022 12/25/2021, 12/24/2021, 12/23/2021, Additional history exists HEMOGLOBIN 06/24/2022 12/24/2021, 12/23/2021, 10/11/2021, Additional history exists Pneumococcal Vaccine: 65+ Completed 12/09/2015, 08/21/2014 , Years 10/07/2008 INFLUENZA VACCINE Completed 12/08/2021, 12/18/2020, 12/04/2019, Additional history exists ALK PHOS Completed 12/23/2021, 10/08/2021 IPV IMMUNIZATION Aged Out No longer eligi ble based on patient 's age to complete this topic MENINGITIS IMMUNIZATION Aged Out No longe r eligible based on patient 's age to complete this topic Procedures Procedure Name Priority Date/Time Associated Comments Diagnosis EXTRA PURPLE TOP TUBE Routine 12/25/2021 Result s for 7:34 AM CDT this procedure are in the results section. EXTRA TUBE Routine 12/25/2021 Results for 7:34 AM CDT this procedure are in the results section. BASIC METABOLIC PANEL Routine 12/25/2021 Result s for 7:34 AM CDT this procedure are in the results section. TROPONIN T, HIGH SENSITIVITY Timed 12/24/2021 Results for 6:30 AM CDT this procedure are in the results section. CBC WITH PLATELETS Routine 12/24/2021 Results f or 6:30 AM CDT this procedure are in the results section. BASIC METABOLIC PANEL Routine 12/24/2021 Result s for 6:30 AM CDT this procedure are in the results section. GLUCOSE BY METER Routine 12/24/2021 Results for 4:36 AM CDT this procedure are in the results section. TROPONIN T, HIGH SENSITIVITY STAT 12/24/2021 Results for 2:05 AM CDT this procedure are in the results section. INFLUENZA A/B & SARS-COV2 PCR STAT 12/23/2021 Results for MULTIPLEX 10:53 PM CDT this procedure are in the results section. CT CHEST PULMONARY EMBOLISM W STAT 12/23/2021 Results for CONTRAST 9:50 PM CDT this procedure are in the results section. XR CHEST 2 VIEWS STAT 12/23/2021 Results for 8:06 PM CDT this procedure are in the results section. CBC WITH PLATELETS & STAT 12/23/2021 Results for DIFFERENTIAL 7:51 PM CDT this procedure are in the results section. NT PROBNP INPATIENT STAT 12/23/2021 Results for 7:51 PM CDT this procedure are in the results section. TROPONIN T, HIGH SENSITIVITY STAT 12/23/2021 Results for 7:51 PM CDT this procedure are in the results section. EXTRA RED TOP TUBE STAT 12/23/2021 Results f or 7:51 PM CDT this procedure are in the results section. EXTRA BLUE TOP TUBE STAT 12/23/2021 Results for 7:51 PM CDT this procedure are in the results section. CBC WITH PLATELETS AND STAT 12/23/2021 Resul ts for DIFFERENTIAL 7:51 PM CDT this procedure are in the results section. EXTRA TUBE STAT 12/23/2021 Results for 7:51 PM CDT this procedure are in the results section. COMPREHENSIVE METABOLIC PANEL STAT 12/23/2021 Results for 7:51 PM CDT this procedure are in the results section. EKG 12-LEAD, TRACING ONLY STAT 12/23/2021 Re sults for 7:33 PM CDT this procedure are in the results section. HEMODIALYSIS SINGLE TREATMENT Routine 10/11/2021 SETUP ([facility]) 4:33 PM CDT HEMODIALYSIS DIALYZER ([facility]) Routine 10/11/2021 2:28 PM CDT [...] PM CDT from Last 3 Months Results Extra Purple Top Tube (12/25/2021 7:34 AM CDT) P athologist Signature Hold Specimen JIC 12/25/2021 [facility] 9:04 AM CDT Specimen Anatomical Collection Method / Collection Time Recei annie Time (Source) Location / Volume Laterality Blood STRUCTURE OF LEFT Venipuncture / 12/25/2021 7:34 12/25 7:55 HAND / Unknown Unknown AM CDT AM CDT Dallin Farah DO LAB - BLOOD ORDERABLES Performing Organization Address City/State/ZIP Code [place] [address] Care Lab [address] Lab (1st floor, no room number) (ABNORMAL) Basic metabolic panel (12/25/2021 7:34 AM CDT)Only the most recent of 5 resultswithin the time period is included. Patholo gist Method Time Signature Sodium 135 (L) 136 - 145 12/25/2021 [facility] mmol/L 8:25 AM CDT Potassium 5.3 3.4 - 5.3 12/25/2021 [facility] mmol/L 8:25 AM CDT Chloride 93 (L) 98 - 107 12/25/2021 LABORATORY mmol/L 8:25 AM CDT Carbon Dioxide 27 22 - 29 12/25/2021 LABORATORY (CO2) mmol/L 8:25 AM CDT Anion Gap 15 7 - 15 12/25/2021 LABORATORY mmol/L 8:25 AM CDT Urea Nitrogen 34.6 (H) 8.0 - 23.0 12/25/2021 [facility] mg/dL 8:25 AM CDT Creatinine 5.13 (H) 0.67 - 12/25/2021 [facility] 1.17 mg/dL 8:25 AM CDT Calcium 9.9 8.8 - 10.2 12/25/2021 [facility] mg/dL 8:25 AM CDT Glucose 78 70 - 99 12/25/2021 [facility] mg/dL 8:25 AM CDT GFR Estimate 11 (L) >60 12/25/2021 [facility] mL/min/1.7 8:25 AM CDT 3m2 Comment: Effective March 09, 2021 eGF Rcr in adults is calculated using the 2020 CKD-EPI creatinine equation which includ es age and gender (Brigette et al., NEJM, DOI: 10.1056/QFNGot9066218) Specimen Anatomical Collection Method / Collection Time Recei annie Time (Source) Location / Volume Laterality Blood STRUCTURE OF LEFT Venipuncture / 12/25/2021 7:34 12/25 7:38 HAND / Unknown Unknown AM CDT AM CDT Phillip Vinson MD LAB - BLOOD ORDERABLES Performing Organization Address City/[facility]/ZIP Code [place] [phone] Care Lab [address] Lab (1st floor, no room number) (ABNORMAL) Troponin T, High Sensitivity (12/24/2021 6:30 AM CDT)Only the most recent of3 resultswithin the time period is included. [facility] gist Method Time Signature Troponin T, High 107 (HH) <=22 ng/L 12/24/2021 [facility] Y Sensitivity 7:43 AM CDT Specimen Anatomical Collection Method / Collection Time Recei annie Time (Source) Location / Volume Laterality Blood STRUCTURE OF RIGHT Venipuncture / 12/24/2021 6:30 10/0 09/2021 7:15 UPPER LIMB / Unknown AM CDT AM CDT Unknown Dallin Farah DO LAB - BLOOD ORDERABLES Performing Organization Address City/[facility]/ZIP Code [place] [address] Care Lab [address] Lab (1st floor, no room number) (ABNORMAL) CBC with platelets (12/24/2021 6:30 AM CDT)Only the most recent of4 resultswithin the time period is included. Patholo gist Method Time Signature WBC Count 7.5 4.0 - 11.0 12/24/2021 [facility] 10e3/uL 7:18 AM CDT RBC Count 3.76 (L) 4.40 - 12/24/2021 [facility] 5.90 7:18 AM CDT 10e6/uL Hemoglobin 11.7 (L) 13.3 - 12/24/2021 [facility] 17.7 g/dL 7:18 AM CDT Hematocrit 38.3 (L) 40.0 - 12/24/2021 [facility] 53.0 % 7:18 AM CDT MCV 102 (H) 78 - 100 12/24/2021 [facility] fL 7:18 AM CDT MCH 31.1 26.5 - 12/24/2021 LABORATORY 33.0 pg 7:18 AM CDT MCHC 30.5 (L) 31.5 - 12/24/2021 [facility] 36.5 g/dL 7:18 AM CDT RDW 17.0 (H) 10.0 - 12/24/2021 [facility] 15.0 % 7:18 AM CDT Platelet Count 155 150 - 450 12/24/2021 [facility] 10e3/uL 7:18 AM CDT Specimen Anatomical Collection Method / Collection Time Recei annie Time (Source) Location / Volume Laterality Blood STRUCTURE OF RIGHT Venipuncture / 12/24/2021 6:30 10/0 09/2021 7:15 UPPER LIMB / Unknown AM CDT AM CDT Unknown Dallin Farah DO LAB - BLOOD ORDERABLES Performing Organization Address City/State/ZIP Code [place] [address] Care Lab [address] Lab (1st floor, no room number) (ABNORMAL) Glucose by meter (12/24/2021 4:36 AM CDT)Only the most recent of3 resultswithin the time period is included. P athologist Signature GLUCOSE BY 128 (H) 70 - 99 12/24/2021 LABORATORY METER POCT mg/dL 4:43 AM CDT POC Specimen (Source) Anatomical Collection Method Collection Time Re ceived Time Location / / Volume Laterality Blood, Capillary BLOOD SPECIMEN / 12/24/2021 4:36 10/0 09/2021 4:43 Unknown AM CDT AM CDT Dallin [facility]ah DO [facility] Performing Organization Address City/State/ZIP Code Phon e Number [facility] [place] [address] Care [facility] [address] Lab (1st floor, no room number) (ABNORMAL) Symptomatic; Yes; 12/20/2021 Influenza A/B & SARS-CoV2 (COVID-19) Virus PCR Multiplex Nasopharyngeal (12/23/2021 10:53 PM CDT) [facility] Method Time Signature Influenza A Negative Negative 12/23/2021 [facility] PCR 11:43 PM CDT Influenza B Negative Negative 12/23/2021 LABORATORY PCR 11:43 PM CDT RSV PCR Positive (A) Negative 12/23/2021 [facility] 11:43 PM CDT SARS CoV2 PCR Negative Negative 12/23/2021 LABORATORY 11:43 PM CDT Comment: NEGATIVE: SARS-CoV-2 (COVID-19) RNA not detected, presumed negative. Specimen Anatomical Location / Collection Method Collection Ruslan e Received Time (Source) Laterality / Volume Swab NASOPHARYNGEAL Non-blood 12/23/2021 10:53 STRUCTURE / Unknown Collection / PM CDT 10:57 PM CDT Unknown Narrative [facility] - 12/23/2021 11:43 PM CDT Testing was performed using the Xpert Xpress CoV2/Flu/RSV Assay on the DoubleRecall GeneXpert Instrument. This test should be ordered for the detection of SARS-CoV- 2 and influenza viruses in individuals who meet clinical and/or epidemiological cri teria. Test performance is unknown in asymptomatic patients. This test is for in vitro diagnostic use under the FDA EUA for laboratories certified under CLIA to p erform high or moderate complexity testi ng. This test has not been FDA cleared or approved. A negative result does not rule out the presence of PCR inhibitors in the specimen or target RNA in concentrat ion below the limit of detection for the assay. If only one viral target is positive but coinfection with multiple targets is suspected, the sample should be re-tested with another FDA cleared, approved , or authorized test, if coinfection wou ld change clinical management. This test was validated by the [facility]. These laboratories are certified under the Clinical Laboratory Improvement Amendments of 198 8 (CLIA-88) as qualified to perform high complexity laboratory testing. Nakita Pruitt MD LAB - MICRO GENERAL ORDERABL ES Performing Organization Address City/State/[place] [phone] [facility] [address] [facility], no room number[facility] CT Chest Pulmonary Embolism w Contrast (12/23/2021 9:50 PM CDT) Anatomical Region Laterality Modality Chest, SUBRAD CT BODY, UMP CT CHEST Comp uted Tomography Specimen (Source) Anatomical Collection Method Collection Time Re ceived Time Location / / Volume Laterality 12/23/2021 9:50 PM CDT Impressions 12/23/2021 10:07 PM CDT IMPRESSION: 1. ??No acute pulmonary embolism. 2. ??Diffuse bronchial wall thickening, compatible with bronchitis. Hypoinflated lungs with scattered areas of air trapping. 3. ??Trace left pleural effusion. Narrative 12/23/2021 10:07 PM CDT EXAM: CT CHEST PULMONARY EMBOLISM W CONTRAST LOCATION: [facility] DATE/TIME: 12/23/2021 9:50 PM INDICATION: Worsening dyspnea and cough. Negative workup yesterday. COMPARISON: Chest radiograph 12/23/2021 TECHNIQUE: CT chest pulmonary angiogram during arterial phase injection of IV contrast. Multiplanar reformats and MIP reconstructions were performed. Dose reduction techniques were used. CONTRAST: 73mL Isovue 370 FINDINGS: ANGIOGRAM CHEST: Pulmonary arteries are normal caliber and negative for pulmonary emboli. Extensive aortic calcifications. Thoracic aorta is not well opacified and is indeterminate for dissection. No CT evidence of right heart strain. LUNGS AND PLEURA: Diffuse bronchial wall thickening. Hypoinflated lungs with mosaic groundglass attenuation, likely related to areas of air trapping. No focal airspace consolidation. Trace left pleural effusion. No pneumothorax. 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 MEDIASTINUM/AXILLAE: Cardiomegaly. Prost hetic aortic valve. No pericardial effusion. No lymphadenopathy. Calcified left hilar lymph nodes, compatible with old granulomas disease. CORONARY ARTERY CALCIFICATION: Severe. UPPER ABDOMEN: Upper abdominal ascites. Few splenic calcifications, compatible with old granulomatous disease. Status post cholecystectomy. MUSCULOSKELETAL: Gynecomastia. Multileve l degenerative changes of the spine. Bridging ossification along the thoracic vertebral bodies, either diffuse idiopathic skeletal hyperostosis or ankylosing spondylitis. Median sternotomy wires. Procedure Note Isidoro Vidales MD - 12/23/2021Formatting o f this note might be different from the original. EXAM: CT CHEST PULMONARY EMBOLISM W CONT RAST LOCATION: [facility] DATE/TIME: 12/23/2021 9:50 PM INDICATION: Worsening dyspnea and cough. Negative workup yesterday. COMPARISON: Chest radiograph 12/23/2021 TECHNIQUE: CT chest pulmonary angiogram during arterial phase injection of IV contrast. Multiplanar reformats and MIP reconstructions were performed. Dose reduction techniques were used. CONTRAST: 73mL Isovue 370 FINDINGS: ANGIOGRAM CHEST: Pulmonary arteries are normal caliber and negative for pulmonary emboli. Extensive aortic calcifications. Thoracic aorta is not well opacified and is indeterminate for dissection. No CT evidence of right heart strain. LUNGS AND PLEURA: Diffuse bronchial wall thickening. Hypoinflated lungs with mosaic groundglass attenuation, likely related to areas of air trapping. No focal airspace consolidation. Trace left pleural effusion. No pneumothorax. Calcified left pleural plaques, compatible with prior asbestos exposure. MEDIASTINUM/AXILLAE: Cardiomegaly. Prost hetic aortic valve. No pericardial effusion. No lymphadenopathy. Calcified left hilar lymph nodes, compatible with old granulomas disease. CORONARY ARTERY CALCIFICATION: Severe. UPPER ABDOMEN: Upper abdominal ascites. Few splenic calcifications, compatible with old granulomatous disease. Status post cholecystectomy. MUSCULOSKELETAL: Gynecomastia. Multileve l degenerative changes of the spine. Bridging ossification along the thoracic vertebral bodies, either diffuse idiopathic skeletal hyperostosis or ankylosing spondylitis. Median sternotomy wires. IMPRESSION: 1. No acute pulmonary embolism. 2. Diffuse bronchial wall thickening, co mpatible with bronchitis. Hypoinflated lungs with scattered areas of air trapping. 3. Trace left pleural effusion. Nakita Pruitt MD IMG CT ORDERABLES Chest XR, PA & LAT (12/23/2021 8:06 PM CDT) Anatomical Region Laterality Modality Chest Computed Radiography Specimen (Source) Anatomical Collection Method Collection Time Re ceived Time Location / / Volume Laterality 12/23/2021 8:06 PM CDT Impressions 12/23/2021 8:09 PM CDT IMPRESSION: Status post median sternotom y and valve replacement. Heart size is enlarged. Prominence of central pulmonar y vasculature without overt failure or lobar consolidation. No effusions. Calcified g ranulomas bilaterally. No acute bony abnormality. Narrative 12/23/2021 8:09 PM CDT EXAM: XR CHEST 2 VIEWS LOCATION: [facility] DATE/TIME: 12/23/2021 8:06 PM INDICATION: sob COMPARISON: None. Procedure Note Higinio Melchor MD - 12/23/2021Formatt ing of this note might be different from the original. EXAM: XR CHEST 2 VIEWS LOCATION: [facility] DATE/TIME: 12/23/2021 8:06 PM INDICATION: sob COMPARISON: None. IMPRESSION: Status post median sternotom y and valve replacement. Heart size is enlarged. Prominence of central pulmonary vasculature without overt failure or lobar consolidation. No effusions. Calcified granulomas bilaterally. No acute bony abnormality. Nakita Pruitt MD IMG DIAGNOSTIC IMAGING ORDER [place] Extra Red Top Tube (12/23/2021 7:51 PM CDT)Only the most recent of2 results within the time period is included. athologist Signature Hold Specimen JI 12/23/2021 LABORATORY 9:05 PM CDT Specimen Anatomical Collection Method / Collection Time Recei annie Time (Source) Location / Volume Laterality Blood STRUCTURE OF RIGHT Venipuncture / 12/23/2021 7:51 10/0 08/2021 7:56 UPPER LIMB / Unknown PM CDT PM CDT Unknown Nakita Pruitt MD LAB - BLOOD ORDERABLES Performing Organization Address City/State/ZIP Code [place] [address] Care Lab [address] Lab (1st floor, no room number) Extra Blue Top Tube (12/23/2021 7:51 PM CDT) P athologist Signature Hold Specimen JIC 12/23/2021 [facility] 9:05 PM CDT Specimen Anatomical Collection Method / Collection Time Recei annie Time (Source) Location / Volume Laterality Blood STRUCTURE OF RIGHT Venipuncture / 12/23/2021 7:51 10/0 08/2021 7:56 UPPER LIMB / Unknown PM CDT PM CDT Unknown Nakita Pruitt MD LAB - BLOOD ORDERABLES Performing Organization Address City/State/ZIP Code [place] [address] Care Lab [address] Lab (1st floor, no room number) (ABNORMAL) CBC with platelets and differential (12/23/2021 7:51 PM CDT)Only the most recent of2 resultswithin the time period is included. Patholo gist Method Time Signature WBC Count 7.2 4.0 - 12/23/2021 [facility] 11.0 8:01 PM CDT 10e3/uL RBC Count 3.73 (L) 4.40 - 12/23/2021 [facility] 5.90 8:01 PM CDT 10e6/uL Hemoglobin 11.6 (L) 13.3 - 12/23/2021 [facility] 17.7 g/dL 8:01 PM CDT Hematocrit 37.6 (L) 40.0 - 12/23/2021 [facility] 53.0 % 8:01 PM CDT MCV 101 (H) 78 - 100 12/23/2021 [facility] fL 8:01 PM CDT MCH 31.1 26.5 - 12/23/2021 [facility] 33.0 pg 8:01 PM CDT MCHC 30.9 (L) 31.5 - 12/23/2021 [facility] 36.5 g/dL 8:01 PM CDT RDW 16.7 (H) 10.0 - 12/23/2021 [facility] 15.0 % 8:01 PM CDT Platelet Count 152 150 - 450 12/23/2021 [facility] 10e3/uL 8:01 PM CDT % Neutrophils 81 % 12/23/2021 [facility] 8:01 PM CDT % Lymphocytes 5 % 12/23/2021 [facility] 8:01 PM CDT % Monocytes 14 % 12/23/2021 [facility] 8:01 PM CDT % Eosinophils 0 % 12/23/2021 [facility] 8:01 PM CDT % Basophils 0 % 12/23/2021 [facility] 8:01 PM CDT % Immature 0 % 12/23/2021 [facility] Granulocytes 8:01 PM CDT NRBCs per 100 0 <1 /100 12/23/2021 [facility] WBC 8:01 PM CDT Absolute 5.8 1.6 - 8.3 12/23/2021 [facility] Neutrophils 10e3/uL 8:01 PM CDT Absolute 0.4 (L) 0.8 - 5.3 12/23/2021 [facility] Lymphocytes 10e3/uL 8:01 PM CDT Absolute 1.0 0.0 - 1.3 12/23/2021 [facility] Monocytes 10e3/uL 8:01 PM CDT Absolute 0.0 0.0 - 0.7 12/23/2021 [facility] Eosinophils 10e3/uL 8:01 PM CDT Absolute 0.0 0.0 - 0.2 12/23/2021 [facility] Basophils 10e3/uL 8:01 PM CDT Absolute 0.0 <=0.4 12/23/2021 [facility] Immature 10e3/uL 8:01 PM CDT Granulocytes Absolute NRBCs 0.0 10e3/uL 12/23/2021 [facility] 8:01 PM CDT Specimen Anatomical Collection Method / Collection Time Recei annie Time (Source) Location / Volume Laterality Blood STRUCTURE OF RIGHT Venipuncture / 12/23/2021 7:51 10/0 08/2021 7:56 UPPER LIMB / Unknown PM CDT PM CDT Unknown Nakita Pruitt MD LAB - BLOOD ORDERABLES Performing Organization Address City/State/ZIP Code Ph[place] [address] Care Lab [address] Lab (1st floor, no room number) (ABNORMAL) Nt probnp inpatient (BNP) (12/23/2021 7:51 PM CDT) [facility] Method Time Signature N terminal Pro >70,000 0 - 900 12/23/2021 LABORATORY BNP Inpatient (H) pg/mL 10:52 PM CDT Comment: Reference range shown and results flagge d as abnormal are suggested inpatient cut points for confirming diagnosis if CHF in an acute setting. Establishing a baseline value for each individual patient is useful for follow-up. An inpatient or e mergency department NT-proPBNP <300 pg/mL effectively rules out acute CHF, with 99% negative predictive value. The outpatient non-acute reference range for ruling out CHF is: 0-125 pg/mL (age 18 to less than 75) 0-450 pg/mL (age 75 yrs and older) Specimen Anatomical Collection Method / Collection Time Recei annie Time (Source) Location / Volume Laterality Blood STRUCTURE OF RIGHT Venipuncture / 12/23/2021 7:51 1008/2021 7:56 UPPER LIMB / Unknown PM CDT PM CDT Unknown Nakita Pruitt MD LAB - BLOOD ORDERABLES Performing Organization Address City/State/ZIP Code [place] [phone] Care Lab [address] Lab (1st floor, no room number) (ABNORMAL) Comprehensive metabolic panel (12/23/2021 7:51 PM CDT)Only the most recent of2 resultswithin the time period is included. [facility] Method Time Signature Sodium 134 (L) 136 - 145 12/23/2021 LABORATORY mmol/L 8:18 PM CDT Potassium 5.7 (H) 3.4 - 5.3 12/23/2021 LABORATORY mmol/L 8:18 PM CDT Chloride 92 (L) 98 - 107 12/23/2021 LABORATORY mmol/L 8:18 PM CDT Carbon Dioxide 26 22 - 29 12/23/2021 LABORATORY (CO2) mmol/L 8:18 PM CDT Anion Gap 16 (H) 7 - 15 12/23/2021 LABORATORY mmol/L 8:18 PM CDT Urea Nitrogen 47.9 (H) 8.0 - 12/23/2021 LABORATORY 23.0 8:18 PM CDT mg/dL Creatinine 5.77 (H) 0.67 - 12/23/2021 LABORATORY 1.17 8:18 PM CDT mg/dL Calcium 10.2 8.8 - 12/23/2021 [facility] 10.2 8:18 PM CDT mg/dL Glucose 116 (H) 70 - 99 12/23/2021 LABORATORY mg/dL 8:18 PM CDT Alkaline 106 40 - 129 12/23/2021 LABORATORY Phosphatase U/L 8:18 PM CDT AST 36 10 - 50 12/23/2021 LABORATORY U/L 8:18 PM CDT ALT 17 10 - 50 12/23/2021 LABORATORY U/L 8:18 PM CDT Protein Total 7.9 6.4 - 8.3 12/23/2021 LABORATORY g/dL 8:18 PM CDT Albumin 3.9 3.5 - 5.2 12/23/2021 LABORATORY g/dL 8:18 PM CDT Bilirubin Total 0.8 <=1.2 12/23/2021 LABORATORY mg/dL 8:18 PM CDT GFR Estimate 10 (L) >60 12/23/2021 LABORATORY mL/min/1. 8:18 PM CDT 73m2 Comment: Effective March 09, 2021 eGF Rcr in adults is calculated using the 2020 CKD-EPI creatinine equation which includ es age and gender (Brigette et al., NEJ, DOI: 10.1056/SATVrn8806409) Specimen Anatomical Collection Method / Collection Time Recei annie Time (Source) Location / Volume Laterality Blood STRUCTURE OF RIGHT Venipuncture / 12/23/2021 7:51 10/0 08/2021 7:56 UPPER LIMB / Unknown PM CDT PM CDT Unknown Nakita Pruitt MD LAB - BLOOD ORDERABLES Performing Organization Address City/State/ZIP Code [place] [address] Care [facility] [address] Lab (1st floor, no room number) EKG 12 lead (12/23/2021 7:33 PM CDT)Only the most recent of2 resultswithin the time period is included. Component Value Ref Range Test Analysis Performed Pathologis t Method Time At Signature Systolic Blood mmHg RADIOLOGY Pressure RESULTS Diastolic Blood mmHg RADIOLOGY Pressure RESULTS Ventricular Rate 99 BPM RADIOLOGY RESULTS Atrial Rate 87 BPM RADIOLOGY RESULTS PA Interval ms RADIOLOGY RESULTS QRS Duration 120 ms RADIOLOGY RESULTS QT 378 ms RADIOLOGY RESULTS QTc 485 ms RADIOLOGY RESULTS P [place] degrees RADIOLOGY RESULTS R AXIS 134 degrees RADIOLOGY RESULTS T [place] 8 degrees RADIOLOGY RESULTS Interpretation Atrial fibrillation RADIO LOGY ECG Right axis deviation RESULTS Right ventricular hypertrophy Nonspecific ST abnormality Abnormal ECG When compared with ECG of 09-OCT-2021 00:52, Right bundle branch block is no longer Present Specimen Anatomical Collection Method Collection Time Receive d Time (Source) Location / / Volume Laterality 12/23/2021 7:33 PM 9:06 CDT PM CDT Nakita Pruitt MD ECG ORDERABLES Performing Organization Address City/State/ZIP Code Phon e Number RADIOLOGY RESULTS Hepatitis B surface antigen (10/11/2021 7:46 AM CDT) Patholo gist Method Time Signature Hepatitis B Nonreactive Nonreactive 10/11/2021 [facility] Surface 4:30 PM CDT CORE/PROT/EN Antigen DO Specimen Anatomical Collection Method / Collection Time Recei annie Time (Source) Location / Volume Laterality Blood STRUCTURE OF RIGHT Venipuncture / 10/11/2021 7:46 07/2 07/2021 7:58 HAND / Unknown Unknown AM CDT AM CDT Terry Wlofe MD LAB - BLOOD ORDERABLES Performing Organization Address City/State/ZIP Code Phon e Number [facility] CORE/PROT/ENDO [facility] [place] [place] [address] Core/Prot/Endo [address] [facility], Room 3[facility] Surgical Pathology Exam (10/10/2021 8:58 AM CDT) Component Value Ref Test Analysis Performed Pathologis t Range Method Time At Signature Case Report Surgical Pathology Report ? Case: [id number] ? RH Authorizing Provider: ??Carb allo, Joce ? Collected: ? 10/10/2021 08:58 AM ? 2 8:22 AM LABORA TORY ? MD Edgard ? CDT [facility] ?? Received: ?10/10/2021 09:42 AM ? Main OR ? Pathologist: ? Antony Cameron, PhD ? Specimens: ?? A) - Small [...] entirely submitted in 1 cassette. (MAR[facility] Saldaña [facility]) Microscopic Microscopic examination Description was performed. 2 8:22 AM LABORATORY CDT Special -Negative for H. Pylori orga nisms on immunohistochemical stains. All controls stain appropriately. RH Stains 2 8:22 AM LABORATORY CDT Performing The technical component Labs of this testing was 2 8:22 AM [facility] Case Images 2 [...] by biopsy (specimen) Joce OTERO - LINDSAY Performing Organization Address City/State/[place] [phone] Care Lab [address] Lab (1st floor, no room number) UPPER GI ENDOSCOPY (10/10/2021 8:18 AM CDT) Component Value Ref Test Analysis Performed At [facility] Range Method Time Signature Upper GI [facility] RADIOLOGY Endoscopy RESULTS Patient Name: Shaun Ocampo ? Procedure Date: 09/18 8:18 AM ? Account Num flako: [id number] Date of : 1945 ?Admit Type: Inp [...] Model ?# GIF-H190, Endora # 205, SN #[id number] was ?introduced through the mouth, and advanced [...] Note Initiated On: 10/10/2021 8:18 AM MRN: ?[id number] Procedure Date: ? 10/10/2021 8:18:14 AM Total Procedure Duration: 0 hours 5 minutes 10 seconds Estimated Blood Loss: ? Scope In: 8:56:46 AM Scope Out: 9:01:56 AM Specimen (Source) Anatomical Collection Method Collection Time Re ceived Time Location / / Volume Laterality 10/10/2021 8:18 AM CDT Joce Zamudio MD PROCEDURES Performing Organization Address City/[facility]/ZIP Code Phon e Number RADIOLOGY RESULTS (ABNORMAL) [...] City/State/ZIP Code [place] [address] Care Lab [address] [facility] Lab (1st floor, no room number) Transfuse [...] O Neg [facility] BLOOD BANK Unit Number [id number] RH BLOOD BANK Unit Status Transfused RH BLOOD BANK Blood Red Blood Cells RH BLOOD Component Type BANK Product Code [id number] RH BLOOD BANK CODING SYSTEM [id number] RH BLOOD BANK UNIT TYPE ISBT 9500 RH BLOOD BANK ISSUE DATE AND [id number] RH BLOOD TIME BANK Specimen (Source) Anatomical Collection Method Collection Time Re ceived Time Location / / Volume Laterality 10/09/2021 6:52 AM CDT Dallin Smions MD BLOOD BANK PRODUCT ORDERABLE S Performing Organization Address City/[facility]/ZIP Code Phon e Number BLOOD BANK [address] [place] [address] Asymptomatic COVID-19 Virus (Coronavirus) by PCR Nasopharyngeal [...] the Xpert Xpress SARS-CoV-2 Assay on the [employer]. A dditional information about this [...] MICRO GENERAL ORDERABL ES Performing Organization Address City/[facility]/ZIP Code [place] [phone] Care Lab [address] Lab (1st floor, no room number) (ABNORMAL) INR (10/08/2021 8:44 PM CDT) P athologist Signature INR 1.34 (H) 0.85 - 1.15 10/08/2021 [facility] LABORATORY 9:55 PM CDT Specimen Anatomical Collection Method / Collection Time Recei annie Time (Source) Location / Volume Laterality Blood STRUCTURE OF RIGHT Venipuncture / 10/08/2021 8:44 /04/2021 9:41 UPPER LIMB / Unknown PM CDT PM CDT Unknown Florentino Ragsdale MD LAB - BLOOD ORDERABLES Performing Organization Address City/State/ZIP Code [place] [address] Care Lab [address] Lab (1st floor, no room number) Adult Type and Screen (10/08/2021 7:02 PM CDT) Patholo gist Method Time Signature ABO/RH(D) O NEG 10/08/2021 RH BLOOD 6:39 PM CDT BANK Antibody Negative Negative 10/08/2021 RH BLOOD Screen 6:39 PM CDT BANK SPECIMEN [id number] 10/08/2021 RH BLOOD EXPIRATION 6:39 PM CDT [...] e Number RH BLOOD BANK [address] [place] [address] [address] IMAGING - HIM SCAN (10/08/2021 3:55 PM CDT) Anatomical Region Laterality Modality Computed Tomography Specimen (Source) Anatomical Collection Method Collection Time Re ceived Time Location / / Volume Laterality 10/08/2021 3:55 PM CDT Narrative This result has an attachment that is no t available. Provider Outside IMG CT ORDERABLES from Last 3 Months Insurance Payer Benefit Plan / Subscriber ID Effective Dates Phone Addre ss Type Group BCBS BCBS MEDICARE [id number] 2018-Presen [phone] [address] [address] Medicare ADVANTAGE t 0 [place] [id number] ([address]) [place] [address] Advance Directives For more information, please contact: [phone] Latest Code Status on File Code Status Date Activated Date Inactivated Comments Full Code 12/24/2021 12:26 AM 12/25/2021 6:18 PM All basic a nd advanced life-sustaining interventions are performed as ofe ropriate Question Answer Comments Code status determined by: Discussion with patient/ legal de cision maker Code Status History Code Status Date Activated Date Inactivated Comments Full Code 10/11/2021 10:33 AM 12/23/2021 7:15 PM Question Answer Comments Code status determined by: Discussion with patient/ legal de cision maker Full Code 10/09/2021 1:43 AM 10/11/2021 10:33 AM All basic a nd advanced life-sustaining interventions ar e performed as appropriate Question Answer Comments Code status determined by: Discussion with patient/ legal de cision maker Care Teams Research Agricultural Engineer Relationship Specialty Start Date End Date Liban Leos PCP - General Family Medicine 10/08/21 [address] [place] [address] Ernie Pompa MD MD Nephrology 10/08/21 [address] [place] [address]
--- OUTSIDE RECORDS SUMMARY | 2022-01-04 06:41 | XMS_ITS | Encounter Summary ---
:1945 Author Organization [facility] Address [address] [place] [address] Care Team Providers Name Role Phone Liban Leos Primary Care Provider Ernie Pompa MD Unavailable Reason for Visit Reason Comments Hypotension Auth/Cert Specialty Diagnoses / Procedures Referred By Contact Refer red To Contact Med Surg Diagnoses UGI bleed UGI bleed 5 Medical Surgical [address] [place], [place] [address] Phone: Fax: Referral ID Status Reason Start Date Expiration Date Visits Requ ested Visits Authorized [id number] 1 1 Encounter Details Date Type Department Care Team Description 10/08/2021 - Hospital Encounter [facility] Florentino Ragsdale MD [facility] [address] [place] [address] UGI bleed 10/11/2021 [facility] 5 Medical Fadi Viveros DO [address] [place] [address] Surgical Dallin Simons MD [facility] [address] [place] [address] [address] Rh[address] Burt MD [facility] [address] [place], [place] [id number] [place] [address] Social History Tobacco Use Types [...] 10/11/2021 10:42 AM CDT Hospitalist Discharge Summary [facility] Jonatan Mejia Date of : 1945 [...] daily fluticasone (FLONASE) 50 MCG/ACT nasal spray Denhoff 1 spray in nostril daily fluticasone-salmeterol (ADVAIR [...] ulcer and??morbid obesity??who??presents to the ED from [place] [facility] due to concerns of hematemesis and melanotic stool. He had just finished HD (took 1.2L) and presented to [place] ED due to concerns of dizziness and hematemesis. ?? Work up at [place] ED showed hgb of 7.5 and soft pressures in the 100's. CT abd pelvis showed normal distal esophagus, stomach and normal liver. No symptoms of obstruction or mass. There were moderate ascites in the dependent abdomen. He received NS bolus (500cc) and 1 unit(s) PRBC and transferred to [facility] ED. 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 He does also have a history of [...] [facility] [place] [address] 10/11/2021 documented in this encounter Medications at Time of Discharge Medication Sig Dispensed Refills Start Date End Date allopurinol (ZYLOPRIM) Take 100 mg by mouth 0 100 MG tablet daily atorvastatin (LIPITOR) Take 20 mg by mouth 0 11/19 20 MG tablet daily fluticasone (FLONASE) 50 Denhoff 1 spray in 0 12/15 MCG/ACT nasal [...] by 0 12/15/2020 (MULTIVITAMIN RENAL) 1 mouth daily MG capsule pantoprazole (PROTONIX) Take 1 tablet [...] walker and gait belt, denies pain, GREY, [id number] on RA. VSS, continues to be anuric. [...] checked every 4 hours. Outpatient Dialysis at [facility] Post treatment report given to Delilah [...] as tolerate. No heparin. Plan discussed with typewriter assembly and parts inspector and patient at the bedside. Interval History: [...] 8.7 -- 8.8 INR Recent Labs Lab 10/08/212043 INR 1.34* Attestation: I have reviewed today's relevant vital signs, notes, medications, labs and imaging. Frederick Alcaraz MD [facility] - Nephrology Office phone :[phone] Pager: [phone] Jovita Blackmon RN - 10/11/2021 7:05 AM [...] Farah DO - 10/10/2021 12:36 PM CDT [facility] Hospitalist Progress Note Name: Jonatan Mejia [...] morbid obesity??who presents to the ED from [place] [facility] due to concerns of hematemesis and melanotic stool. He had just finished HD (took 1.2L) and presented to [place] ED due to concerns of dizziness and hematemesis. ?? Work up at [place] ED showed hgb of 7.5 and soft pressures in the 100's. CT abd pelvis showed normal distal esophagus, stomach and normal liver. No symptoms of obstruction or mass. There were moderate ascites in the dependent abdomen. He received NS bolus (500cc) and 1 unit(s) PRBC and transferred to [facility] ED. Work up in our [...] Laboratory: Recent Labs Lab 10/10/2172110/10/2121410/09/21220110/09/21 1348 10/09/21 0910/08/21224610/08/211901 WBC 7.2 -- -- -- 7.2 -- [...] this interval not displayed. Recent Labs Lab 10/10/21 0910/10/2172110/09/2191110/08/21209910/08/211901 GLC 126* 117* 98 104* 115* Recent Labs Lab 10/10/2172110/10/2121410/09/212201 HGB 9.7* 9.2* 10.3* No results for input(s): CULT in the last 168 hours. Imaging: No results found for this or any previous visit (from the past 24 hour(s)). Dallin Farah DO MPH [facility] Hospitalist Clark Lentz [facility] [place] [address] 10/10/2021 Terry Wolfe MD - 10/10/2021 9:14 [...] mcg/hr (10/09/21 1126) Current active medications and PAYROLL ASSISTANT medications reviewed, see medication list for details. [...] results for input(s): MAG in the last 20947 hours. No results for input(s): PHOS in the last 20370 hours. Recent Labs Lab Test 10/10/21 0722 [...] Farah DO - 10/09/2021 10:04 AM CDT [facility] Hospitalist Progress Note Name: Jonatan Mejia [...] morbid obesity??who presents to the ED from [place] [facility] due to concerns of hematemesis and melanotic stool. He had just finished HD (took 1.2L) and presented to [place] ED due to concerns of dizziness and hematemesis. ?? Work up at [place] ED showed hgb of 7.5 and soft pressures in the 100's. CT abd pelvis showed normal distal esophagus, stomach and normal liver. No symptoms of obstruction or mass. There were moderate ascites in the dependent abdomen. He received NS bolus (500cc) and 1 unit(s) PRBC and transferred to [facility] ED. Work up in our [...] [facility] Hospitalist Clark Lentz [facility] [place] [address] 10/09/2021 documented in this encounter H&P Notes [...] morbid obesity??who presents to the ED from [place] [facility] due to concerns of hematemesis and melanotic stool. He had just finished HD (took 1.2L) and presented to [place] ED due to concerns of dizziness and hematemesis. Work up at [place] ED showed hgb of 7.5 and soft bps in the 100's. CT abd pelvis showed normal distal esophagus, stomach and normal liver. No sxs of obstruction or mass. There were moderate ascites in the dependent abd. He received NS bolus (500cc) and 1u PRBC and transferred to [facility] ED. Work up in our [...] PCR TESTING STATUS: Negative 2-3 days Layne Rossi, PAAnnitaC Primary Care Physician LIBAN LEOS Chief Complaint [...] morbid obesity??who presents to the ED from [place] [facility] due to concerns of hematemesis and melanotic stool. He had just finished HD (took 1.2L) and presented to [place] ED due to concerns of dizziness and hematemesis. Work up at [place] ED showed hgb of 7.5 and soft bps in the 100's. CT abd pelvis showed normal distal esophagus, stomach and normal liver. No sxs of obstruction or mass. There were moderate ascites in the dependent abd. He received NS bolus (500cc) and 1u PRBC and transferred to [facility] ED. Work up in our [...] 50 MCG/ACT nasal spray Yes Yes Sig: Denhoff 1 spray in nostril daily fluticasone-salmeterol (ADVAIR [...] 16 AST -- 15 Layne Rossi PA-C [facility] Medicine October 08, 2021 Securely message with the [employer] Console (learn more here) Text page via [employer] Paging/Directory Associated attestation - Fadi Viveros DO [...] He had an EGD June 28 at [facility]. Preoperative indication was Brannon's surveillance. 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 Biopsies were negative for Brannon's but did show esophagitis. Stomach showed diffuse gastritis with old blood consistent with erosive gastritis. Moderate duodenitis was noted. This was confirmed on biopsy and suspected be due to nonsteroidals likely aspirin. He reports an EGD in the remote past at [facility] that showed ulcers. He has ascites [...] Medication Sig Last Dose Taking? Auth Provider Non Emergency Services Ambulance Driver End Date allopurinol (ZYLOPRIM) 100 MG tablet [...] Yes fluticasone (FLONASE) 50 MCG/ACT nasal spray Denhoff 1 spray in nostril daily 10/07/2021 at [...] . Recent Labs Lab Test 10/09/21 0910/08/217 10/08/21204310/08/21190104/08/19 0745 WBC 7.2 -- -- 7.1 5.2 HGB 8.5* 7.7* -- 8.1* 7.9* MCV 111* -- -- 110* 100 PLT 157 -- -- 161 140 INR -- -- 1.34* -- -- Recent Labs Lab Test 10/09/21 0912 10/08/21 1902 04/08/19 0745 NA 134 136 137 POTASSIUM 4.8 3.9 5.2* CHLORIDE 100 100 102 CO2 28 30 22 BUN 42* 36* 101* CR 3.52* 2.80* 3.66* ANIONGAP 6 6 13 Recent Labs Lab Test 10/08/211901 ALBUMIN 2.9* BILITOTAL 0.8 ALT 16 AST 15 ALKPHOS 116 Joce Zamudio MD, FACG [facility] [phone] Terry Wolfe MD - 10/09/2021 10:29 AM CDT Consult Date: 10/09/2021 REQUESTING PHYSICIAN: Dallin Farah MD. CHIEF CONTROLLER STATION: Dallas Wolfe MD. REASON FOR CONSULTATION: End-stage [...] lives alone [place]. REVIEW OF SYSTEMS: He feels relatively well [...] and Internal Medicine. Terry Wolfe MD MT: ETLOVE Name: JONATAN MEJIA MRN: [id number] Account: [id number] : 1945 Consult Date: 10/09/2021 Document: [id number] Terry Wolfe MD - 10/09/2021 10:24 AM CDTAssociated Order(s): NEPHROLOGY IP CONSULT See dictation. Confirmation # [id number]. documented in this encounter ED Notes Essence Osuna RN - 10/09/2021 1:16 PM CDT Pt received one unit of RBC this morning, tolerated well, no transfusion reaction. Stepdaregina jin, aware of patient transfer to [facility]. Advanced to clear liquid diet, tolerating well. [...] X 1. Lift room needed:No. Bariatric: No Optical Instrument Repairer Needed: No Isolation: No. Infection: Not Applicable. [...] Brianna, , and informed her of admission [facility] status. She will visit tomorrow and would [...] - 10/08/2021 6:30 PM CDT sent from [facility]. Dialysis patient with hypotension today. Given 500ml and 1 unit PRBC at [facility]. Florentino Ragsdale MD - 10/08/2021 6:23 PM [...] RN Pharmacy-Admission Medication History - Erlin Dodd, [facility] - 10/08/2021 10:14 PM CDT Admission medication history interview status for this patient is complete. See [facility] admission navigator for allergy information, prior to admission medications and immunization status. Medication history interview done, indicate source(s): Patient Medication history resources (including written lists, pill bottles, clinic record): Janice Pillbox Pharmacy: [id number] - [place], [place] - [address] [facility] [phone] Changes made to PAYROLL ASSISTANT medication list: Added: ALL Actions taken by pharmacist (provider contacted, etc):None Additional medication history information:None Medication reconciliation/reorder completed by provider prior to medication history? No Prior to Admission medications Medication Sig Last Dose Taking? Auth Provider Non Emergency Services Ambulance Driver End Date allopurinol (ZYLOPRIM) 100 MG tablet [...] Yes fluticasone (FLONASE) 50 MCG/ACT nasal spray Denhoff 1 spray in nostril daily 10/07/2021 at [...] Diagnosis HEMODIALYSIS SINGLE TREATMENT Routine 10/11/2021 SETUP ([facility]) 4:33 PM CDT HEMODIALYSIS DIALYZER ([facility]) Routine 10/11/2021 2:28 PM CDT [...] B surface antigen (10/11/2021 7:46 AM CDT) [facility] Method Time Signature Hepatitis B Nonreactive [...] e Number [facility] CORE/PROT/ENDO [facility] [address] Core/Prot/Endo [address] [facility] [address] Building, Room 3-580 (ABNORMAL) CBC with platelets (10/11/2021 6:36 AM CDT) [facility] Method Time Signature WBC Count 7.1 [...] Unknown Unknown AM CDT AM CDT Dallin Rene Gagan RAMOS LAB - BLOOD ORDERABLES Performing Organization Address City/State/ZIP Code Phon [place] [address] Care Lab [address] Lab (1st floor, no room number) (ABNORMAL) Basic metabolic panel (10/11/2021 6:36 AM CDT) [facility] Method Time Signature Sodium 134 133 [...] and gender (Brigette et al., NEJM, DOI: 10.1056/[id number]) Specimen Anatomical Collection Method / Collection Time Recei annie Time (Source) Location / Volume Laterality Blood STRUCTURE OF RIGHT Venipuncture / 10/11/2021 6:36 07/2 07/2021 6:42 HAND / Unknown Unknown AM CDT AM CDT Dallin Farah DO LAB - BLOOD ORDERABLES Performing Organization Address City/[facility]/ZIP Code Phon [place] [address] Care Lab [address] Lab (1st floor, no room number) [...] Address City/State/ZIP Code Phon e Number [place] [address] Care Lab [address] Lab (1st floor, no room number) Surgical Pathology Exam (10/10/2021 8:58 AM CDT) Component Value Ref Test Analysis Performed Pathologis t Range Method Time At Signature Case Report Surgical Pathology Report ? Case: [id number] ? Authorizing Provider: ??Carb allo, Joce ? Collected: ? 10/10/2021 08:58 AM ? 2 8:22 AM LABORA TORY ? MD Edgard ? CDT Ordering Location: ? [facility] [place] ?? Received: ?10/10/2021 09:42 AM ? [...] entirely submitted in 1 cassette. (MARIO Saldaña [facility]) Microscopic Microscopic examination Description was performed. 2 8:22 AM LABORATORY CDT Special -Negative for H. Pylori orga nisms on immunohistochemical stains. All controls stain appropriately. Stains 2 8:22 AM LABORATORY CDT Performing The technical component Labs of this testing was 2 8:22 AM LABORATORY completed at [facility] Case Images 2 8:22 AM [...] Organization Address City/State/[place] [address] Care Lab [address] Lab (1st floor, no room number) UPPER GI ENDOSCOPY (10/10/2021 8:18 AM CDT) Component Value Ref Test Analysis Performed At [facility] Range Method Time Signature Upper GI [facility] RADIOLOGY Endoscopy RESULTS Patient Name: Jonatan Mejia ? Procedure Date: 09/18 8:18 AM ? Account Num flako: [id number] Date of : 1945 ?Admit Type: Inp [...] Model ?# GIF-H190, Endora # 205, SN #[id number] was ?introduced through the mouth, and advanced [...] Diet as tolerated. ?- Page out for doug al team. ?- Will follow. ? JOCE ZAMUDIO MD 10/10/2021 8:24:36 AM I was physically present for the entire viewing portion of t he exam. JOCE ZAMUDIO MD Number of Addenda: 0 Note Initiated On: 10/10/2021 8:18 AM MRN: ?[id number] Procedure Date: ? 10/10/2021 8:18:14 AM Total [...] CBC with platelets (10/10/2021 7:22 AM CDT) [facility] Method Time Signature WBC Count 7.2 [...] STRUCTURE OF RIGHT Venipuncture / 10/10/2021 7:22 07/06/2021 7:31 UPPER LIMB / Unknown AM CDT AM CDT Unknown Dallin Farah DO LAB - BLOOD ORDERABLES Performing Organization Address City/State/ZIP Code Phon e Number [place] [phone] Care Lab [address] Lab (1st floor, no room number) (ABNORMAL) Basic metabolic panel (10/10/2021 7:22 AM CDT) Patholo gist Method Time Signature Sodium 132 (L) 133 [...] Nitrogen 49 (H) 7 - 30 10/10/2021 LABORATORY mg/dL 7:54 AM CDT Creatinine 4.60 [...] and gender (Brigette et al., NEJM, DOI: 10.1056/[id number]) Specimen Anatomical Collection Method / Collection Time Recei annie Time (Source) Location / Volume Laterality Blood STRUCTURE OF RIGHT Venipuncture / 10/10/2021 7:22 07/2 06/2021 7:31 UPPER LIMB / Unknown AM CDT AM CDT Unknown Dallin Farah DO LAB - BLOOD ORDERABLES Performing Organization Address City/State/ZIP Code Phon [place] [address] [facility] [address] [facility] Lab (1st floor, no room number) (ABNORMAL) Hemoglobin (10/10/2021 2:15 AM CDT) athologist Signature Hemoglobin 9.2 (L) 13.3 - 17.7 10/10/2021 RH LABORATORY g/dL 2:39 AM CDT Specimen Anatomical Collection Method / Collection Time Recei annie Time (Source) Location / Volume Laterality Blood STRUCTURE OF RIGHT Venipuncture / 10/10/2021 2:15 07/2 06/2021 2:32 HAND / Unknown Unknown AM CDT AM CDT Christie Roldan MD LAB - BLOOD ORDERABLES Performing Organization Address City/[facility]/[place] [address] Care Lab [address] Lab (1st floor, no room number) [...] LAB - BLOOD ORDERABLES Performing Organization Address City/[facility]/[place] [address] Care Lab [address] Lab (1st floor, no room number) [...] Organization Address City/State/[place] [address] Care Lab [address] Lab (1st floor, no room number) [...] City/State/ZIP Code Phon e Number [place] [address] Care Lab [address] Lab (1st floor, no room number) (ABNORMAL) Basic metabolic panel (10/09/2021 9:12 AM CDT) [facility] Method Time Signature Sodium 134 133 - 144 10/09/2021 LABORATORY mmol/L 9:56 AM CDT Potassium 4.8 3.4 - 5.3 10/09/2021 RH LABORATORY mmol/L 9:56 AM CDT Chloride 100 94 - 109 10/09/2021 LABORATORY mmol/L 9:56 AM CDT Carbon Dioxide 28 20 - 32 10/09/2021 LABORATORY (CO2) mmol/L 9:56 AM CDT Anion Gap 6 3 - 14 10/09/2021 LABORATORY mmol/L 9:56 AM CDT Urea Nitrogen 42 (H) 7 - 30 10/09/2021 LABORATORY mg/dL 9:56 AM CDT Creatinine 3.52 (H) 0.66 - 10/09/2021 LABORATORY 1.25 mg/dL 9:56 AM CDT Calcium 8.7 8.5 - 10.1 10/09/2021 LABORATORY mg/dL 9:56 AM CDT Glucose 98 70 - 99 10/09/2021 LABORATORY mg/dL 9:56 AM CDT GFR Estimate 17 (L) >60 10/09/2021 LABORATORY mL/min/1.7 9:56 AM CDT 3m2 Comment: Effective March 09, 2021 eGF Rcr in adults is calculated using the 2020 CKD-EPI creatinine equation which includ es age and gender (Brigette et al., NEJ, DOI: 10.1056/DPHYzx8903404) Specimen Anatomical Collection Method / Collection Time Recei annie Time (Source) Location / Volume Laterality Blood STRUCTURE OF RIGHT Venipuncture / 10/09/2021 9:12 07/05/2021 9:34 HAND / Unknown Unknown AM CDT AM CDT Layne Rossi PA-C LAB - BLOOD ORDERABLES Performing Organization Address City/State/ZIP Code Phon e Number [place] [address] Care Lab [address] Lab (1st floor, no room number) Prepare red blood cells (unit) (10/09/2021 6:52 AM CDT) [facility] Method Time Signature CROSSMATCH Compatible RH BLOOD BANK UNIT ABO/RH O Neg RH BLOOD BANK Unit Number [id number] RH BLOOD BANK Unit Status Transfused RH BLOOD BANK Blood Red Blood Cells RH BLOOD Component Type BANK Product Code [id number] RH BLOOD BANK CODING SYSTEM [id number] RH BLOOD BANK UNIT TYPE ISBT 9500 RH BLOOD BANK ISSUE DATE AND [id number] RH BLOOD TIME BANK Specimen (Source) Anatomical Collection Method Collection Time Re ceived Time Location / / Volume Laterality 10/09/2021 6:52 AM CDT Dallin Simons MD BLOOD BANK PRODUCT ORDERABLE S Performing Organization Address City/State/ZIP Code Phon e Number RH BLOOD BANK [address] [place] [address] Transfuse red blood cells (unit) No special requirements (10/09/2021 2:38 AM CDT) Layne Ray Rossi PA-C BLOOD TRANSFUSION ORDERABLES Transfuse red blood cells (unit), 1 Units No special requirements (10/09/2021 2:38 AM CDT) Layne Ray Rossi PA-C BLOOD TRANSFUSION ORDERABLES EKG 12-lead, tracing only (10/09/2021 12:52 AM CDT) Component Value Ref Range Test Analysis [facility]formed [facility] Method Time At Signature Systolic Blood mmHg RADIOLOGY Pressure RESULTS Diastolic Blood mmHg RADIOLOGY Pressure RESULTS Ventricular Rate 70 BPM RADIOLOGY RESULTS Atrial Rate 39 BPM RADIOLOGY RESULTS NM Interval ms RADIOLOGY RESULTS QRS Duration 126 ms RADIOLOGY RESULTS QT 442 ms RADIOLOGY RESULTS QTc 477 ms RADIOLOGY RESULTS P [place] degrees RADIOLOGY RESULTS R AXIS 107 degrees RADIOLOGY RESULTS T [place] 33 degrees RADIOLOGY RESULTS Interpretation Atrial fibrillation RADIO LOGY ECG Right bundle branch block RESU LTS Abnormal ECG No previous ECGs available Confirmed by - EMERGENCY [place] PHYSICIAN ([id number]), health editor ANDRÉS HATCH ([id number]) on 10/11/2021 6:42:29 [...] O Neg RH BLOOD BANK Unit Number [id number] RH BLOOD BANK Unit Status Transfused RH BLOOD BANK Blood Red Blood Cells RH BLOOD Component Type BANK Product Code [id number] RH BLOOD BANK CODING SYSTEM [id number] RH BLOOD BANK UNIT TYPE ISBT 9500 RH BLOOD BANK ISSUE DATE AND [id number] RH BLOOD TIME BANK Specimen (Source) Anatomical Collection Method Collection Time Re ceived Time Location / / Volume Laterality 10/08/2021 11:46 PM CDT Layne Rossi PA-C BLOOD BANK PRODUCT ORDERABLE S Performing Organization Address City/[facility]/ZIP Code Phon e Number RH BLOOD BANK [address] [place] [address] (ABNORMAL) Hemoglobin (10/08/2021 10:47 PM CDT) athologist [...] City/State/ZIP Code Phon e Number [place] [phone] Care Lab [address] [facility] Lab (1st floor, no room number) [...] LAB - BEAKER POCT Performing Organization Address City/[facility]/ZIP Code Phon e Number [place] [address] Care Lab [address] Lab (1st floor, no room number) [...] the Xpert Xpress SARS-CoV-2 Assay on the [employer]. A dditional information about this [...] COVID-19. This test was validated by the [facility]. This laboratory is certified under the Clinical Laboratory Improvement Amendments of 1988 (CLIA-88) as qualified to perform high complexity laboratory testing. Florentino Ragsdale MD LAB - MICRO GENERAL ORDERABL ES Performing Organization Address City/[facility]/ZIP Code Phon [place] [address] Care Lab [address] Lab (1st floor, no room number) [...] LAB - BLOOD ORDERABLES Performing Organization Address City/[facility]/ZIP Code [place] [address] Care Lab [address] Lab (1st floor, no room number) [...] LAB - BLOOD ORDERABLES Performing Organization Address City/[facility]/ZIP Code Ph[place] [address] Care Lab [address] Lab (1st floor, no room number) [...] City/State/ZIP Code Phon e [place] [address] Care Lab [address] [employer] Lab (1st floor, no room number) Adult Type and Screen (10/08/2021 7:02 PM CDT) [facility] Bottle Method Time Signature ABO/RH(D) O NEG 10/08/2021 RH BLOOD 6:39 PM CDT BANK Antibody Negative Negative 10/08/2021 RH BLOOD Screen 6:39 PM CDT BANK SPECIMEN [id number] 10/08/2021 RH BLOOD EXPIRATION 6:39 PM CDT BANK DATE Specimen Anatomical Collection Method / Collection Time Recei annie Time (Source) Location / Volume Laterality Blood STRUCTURE OF RIGHT Venipuncture / 10/08/2021 7:02 09/18 7:10 UPPER LIMB / Unknown PM CDT PM CDT Unknown Florentino Ragsdale MD LAB - BLOOD BANK TEST ORDER Performing Organization Address City/[facility]/ZIP Code Phon e Number RH BLOOD BANK [address] [place] [address] (ABNORMAL) Comprehensive metabolic panel (10/08/2021 7:02 PM CDT) [facility] Bottle Method Time Signature Sodium 136 133 - [...] and gender (Brigette et al., NEJM, DOI: 10.1056/[id number]) Specimen Anatomical Collection Method / Collection Time Recei annie Time (Source) Location / Volume Laterality Blood STRUCTURE OF RIGHT Venipuncture / 10/08/2021 7:02 09/18 7:10 UPPER LIMB / Unknown PM CDT PM CDT Unknown Florentino Ragsdale MD LAB - BLOOD ORDERABLES Performing Organization Address City/State/ZIP Code [place]on [place] [address] Care Lab [address] Lab (1st floor, no room number) documented in this encounter Visit Diagnoses Diagnosis UGI bleed Hemorrhage of gastrointestinal tract, un specified UGI bleed Hemorrhage of gastrointestinal tract, un [...] 0631 (Given - Pr ovider: Calista Recio, OVI)1507 (Not Given - Provider: Kaylee Trejo RN [...] 1 capsule 0940 (Given - Provider: Essence Osnua RN) 0748 (Auto Hold - Provider: Orders [...] Melanie Rodriguez, OVI)1838 (Given - Provider: Aracelis Goldstein RN) 800 [...] Provider) 0039 (Given - Provider: Jovita Blackmon, OVI)0145 (Canceled Entry - Provider: Jovita Blackmon, RN)0922 (Given - Provider: Melanie Rodriguez, OVI)1838 (Given - Provider: Aracelis Goldstein RN) 3 mL, Intracatheter, EVERY 8 HOURS, Firs t dose on 10/09/21 at 0145, to lock peripheral IV dormant line 1943 (Given - Provider: Aracelis Goldstein, OVI) sucralfate (CARAFATE) suspension 1 g 141 9 (Not Given - Provider: Kaylee Trejo, OVI - Reason: Medication not available)1854 (Given - Provider: Aracelis Goldstein RN) 0639 (Given - Provider: Jovita Blackmon RN)1233 (Given - Provider: Melanie Rodriguez, OVI)1838 (Given - Provider: Aarcelis Goldstein, OVI) 1 g, Oral, 3 TIMES DAILY BEFORE MEALS, F irst dose (after last modification) on 10/10/21 at 1200, Shake well. Recommended to take before meals. Continuous Medication Order 10/09/2021 10/10/2021 10/11/2021 octreotide (sandoSTATIN) 1,250 mcg in D5W 250 mL (CAN ELED) 0141 (Rate/Dose Verify - Provider: Kayla [...] (CANCELED) 0142 (Rate/Dose Verify - Provider: Tavo Thompson, RN)0629 (New Bag - Provider: Calista Recio, RN)0900 (Rate/Dose Verify - Provider: Essence Osuna, RN)1126 (Rate/Dose Verify - Provider: Essence Osuna, RN) 0350 (New Bag - Provider: Eugene Sherman, RN)0715 (Stopped - Provider: Kaylee Trejo, OVI) 8 mg/hr (10 mL/hr), Intravenous, CONTINU OUS, Starting on Mon10/08/21 at 1940, Irritant. 1552 (New Bag - [...] mL (COMPLETED) 1533 (Given - Provider: Lolly Xavier, OVI) 0.5 mL, Intradermal, ONCE PRN, WITHIN 24 [...] 0143 documented in this encounter Care Teams Glass Cleaning Machine Tender Relationship Specialty Start Date End Date Liban Leos PCP - General Family Medicine 10/08/21 [address] [place] [address] Ernie Pompa MD MD Nephrology 10/08/21 [address] [place] [id number] documented as of this encounter
--- OUTSIDE RECORDS SUMMARY | 2022-01-04 06:41 | XMS_ITS | Encounter Summary ---
:1945 Author Organization [facility] Address [address] [place] [id number] Care Team Providers Name Role Phone Liban Leos Primary Care Provider Ernie Pompa MD Unavailable Reason for Visit Reason Comments Shortness of Breath Auth/Cert Specialty Diagnoses / Procedures Referred By Contact Refer red To Contact Med Surg Diagnoses NSTEMI (non-ST elevated myocardial infarction) (H) ESRD (end stage renal disease) on dialysis (H) Volume overload RSV bronchitis Other hypervolemia Volume overload 3 Medical Surgical [address] [place], [place] [address] Phone: Fax: Referral ID Status Reason Start Date Expiration Date Visits Requ ested Visits Authorized [id number] 1 1 Encounter Details Date Type Department Care Team Description 12/23/2021 - [facility] Nakita Pruitt MD [facility] [address] [place] [address] RSV bronchitis (Primary Dx); 12/25/2021 [place] [address] Medical Carmella Garcia DO [facility] [address] [place] [address] Other hypervolemia; Surgical Dallin Farah DO [address] [place], [place] [id number] NSTEMI (non-ST elevated myocardial infar ction) (H); [address] ESRD (end stage renal diseas e) on dialysis (H) [place] [address] Social History Tobacco Use Types [...] Mass Index 33.02 12/24/2021 2:46 AM CDT documented in this encounter Discharge Summaries Phillip Vinson MD - 12/25/2021 2:08 PM CDT [facility] Discharge Summary Admit date: 12/23/2021 Discharge date and time: 12/25/21 1409 Discharge Physician: Mino Wolf MD Primary care provider: Liban Leos Primary Discharge Diagnosis Acute RSV Infection Secondary Diagnoses ESRD HD MWF Hyperkalemia Hyponatremia Type II NC pAF PUD Summary of Hospital Stay 76M with hx of ESRD HD MWF, pAF, and PUD presented with SOB and malaise and found to have RSV infection. Treated symptomatically while in the hospital. Will be discharged with mucinex and a PRN albuterol inhaler with PCP follow-up. Patient Discharge Condition & Exam Discharge condition: Improved BP 90/51 (BP Location: Right arm) Pulse 87 Temp 98.2 ??F (36.8 ??C) (Oral) Resp 20 Ht 1.778 m (5' 10) Wt 104.4 kg (230 lb 1.6 oz) SpO2 98% BMI 33.02 kg/m?? General: In NAD. Cardiac: RRR. Lungs: CTAB. Abd: Non-tender. Ext: No edema. Discharge Instructions Patient/family instructions: Written discharge instruction given to patient/family Discharge Medications: Review of your medicines START taking Dose / Directions albuterol 108 (90 Base) MCG/ACT inhaler Commonly known as: PROAIR HFA/PROVENTIL HFA/VENTOLIN HFA Used for: RSV bronchitis Dose: 2 puff Inhale 2 puffs into the lungs every 4 hours as needed for shortness of breath / dyspnea or wheezing Quantity: 18 g Refills: 1 guaiFENesin 600 MG 12 hr tablet Commonly known as: MUCINEX Used for: RSV bronchitis Dose: 1,200 mg Take 2 tablets (1,200 mg) by mouth 2 times daily Quantity: 30 tablet Refills: 0 CONTINUE these medicines which have NOT CHANGED Dose / Directions Advair HFA 115-21 MCG/ACT inhaler Generic drug: fluticasone-salmeterol Dose: 2 puff Inhale 2 puffs into the lungs 2 times daily Refills: 0 allopurinol 100 MG tablet Commonly known as: ZYLOPRIM Dose: 100 mg Take 100 mg by mouth daily Refills: 0 atorvastatin 20 MG tablet Commonly known as: LIPITOR Dose: 20 mg Take 20 mg by mouth daily Refills: 0 fluticasone 50 MCG/ACT nasal spray Commonly known as: FLONASE Dose: 1 spray [place] 1 spray in nostril daily Refills: 0 lidocaine-prilocaine 2.5-2.5 % external cream Commonly known as: EMLA APPLY SMALL AMOUNT TO ACCESS SITE (AVF) 1 TO 2 HOURS BEFORE DIALYSIS. COVER WITH OCCLUSIVE DRESSING(SARAN WRAP) Refills: 0 metoprolol succinate ER 25 MG 24 hr tablet Commonly known as: TOPROL XL Dose: 0.5 tablet Take 0.5 tablets by mouth daily Refills: 0 multivitamin RENAL 1 MG capsule Generic drug: multivitamin RENAL Dose: 1 capsule Take 1 capsule by mouth daily Refills: 0 pantoprazole 40 MG EC tablet Commonly known as: PROTONIX Used for: UGI bleed Dose: 40 mg Take 1 tablet (40 mg) by mouth every morning (before breakfast) Quantity: 30 tablet Refills: 1 sevelamer carbonate 800 MG tablet Commonly known as: RENVELA Dose: 1 tablet Take 1 tablet by mouth 3 times daily (with meals) Refills: 0 Where to get your medicines These medications were sent to [id number] - [place], [place] - [address] [facility] [address] [facility] ([place], [place]) [phone] ?? albuterol 108 (90 Base) MCG/ACT inhaler ?? guaiFENesin 600 MG 12 hr tablet Discharge diet: Renal Discharge activity: Activity as tolerated Discharge follow-up: Follow up with primary care provider within one week or earlier if symptoms return or gets worse. Follow up with automotive consultant as instructed. Pending Results Unresulted Labs Ordered in the Past 30 Days of this Admission No orders found from 11/23/2021 to 12/24/2021. Patient Allergies Allergies Allergen Reactions ??? Blood-Group Specific Substance Other (See Comments) Patient has a Suggestive Warm Auto antibody. Blood products may be delayed. Draw patient 24 hours prior to transfusion. Draw one red top and two purple top tubes for all type and screen orders. ??? Lisinopril Cough Disposition Disposition: Home I saw and evaluated the patient on day of discharge and discharge instructions reviewed and all the patient's questions and concerns addressed. Over 30 minutes spent on discharge and coordination of discharge process for this patient. documented in this encounter Medications at Time of Discharge Medication Sig Dispensed Refills Start Date End Date albuterol (PROAIR Inhale 2 puffs into 18 g 1 HFA/PROVENTIL the lungs every 4 HFA/VENTOLIN HFA) 108 (90 hours as needed for Base) MCG/ACT shortness of breath / inhalerIndications: RSV dyspnea or wheezing bronchitis allopurinol (ZYLOPRIM) Take 100 mg by mouth 0 100 MG tablet daily atorvastatin (LIPITOR) 20 Take 20 mg by mouth 0 0 12/15/2020 MG tablet daily fluticasone (FLONASE) 50 [place] 1 spray in 0 12/15 MCG/ACT nasal spray nostril daily fluticasone-salmeterol Inhale 2 puffs into 0 06/18 (ADVAIR HFA) 115-21 the lungs 2 times MCG/ACT inhaler daily guaiFENesin (MUCINEX) 600 Take 2 tablets (1,200 30 tablet 0 12/25/2021 MG 12 hr mg) by mouth 2 times tabletIndications: RSV daily bronchitis lidocaine-prilocaine APPLY SMALL AMOUNT TO 0 07/19 (EMLA) 2.5-2.5 % external ACCESS SITE (AVF) 1 TO cream 2 HOURS BEFORE DIALYSIS. COVER WITH OCCLUSIVE DRESSING (SARAN WRAP) metoprolol succinate ER Take 0.5 tablets by 0 (TOPROL XL) 25 MG 24 hr mouth daily tablet multivitamin RENAL Take 1 capsule by 0 12/15/2020 (MULTIVITAMIN RENAL) 1 MG mouth daily capsule pantoprazole (PROTONIX) Take 1 tablet (40 mg) 30 tablet 1 0 10/12/2021 40 MG EC by mouth every morning tabletIndications: UGI (before breakfast) bleed sevelamer carbonate Take 1 tablet by mouth 0 08/19 (RENVELA) 800 MG tablet 3 times daily (with meals) documented as of this encounter Progress Notes Viola Diez RN - 12/25/2021 6:59 AM CDT PRIMARY DIAGNOSIS: GENERIC NURSING OUTPATIENT/OBSERVATION GOALS TO BE MET BEFORE DISCHARGE: 1. ADLs back to baseline: No 2. Activity and level of assistance: Up with standby assistance. 3. Pain status: Pain free. 4. Return to near baseline physical activity: No Ceo Na Nurse Safe discharge environment identified: Yes Barriers to discharge: Yes Entered by: Viola Diez RN 12/25/2021 7:00 AM Please review provider order for any additional goals. Nurse to notify provider when observation goals have been met and patient is ready for discharge. Vitals:BP 95/44 (BP Location: Right arm) Pulse 114 Temp 97.9 ??F (36.6 ??C) (Oral) Resp 22 Ht 1.778 m (5' 10) Wt 104.4 kg (230 lb 1.6 oz) SpO2 97% BMI 33.02 kg/m?? Neuro:A&O x4 Resp:2L NC coarse lung sounds Bilaterally, Dyspnea on exertion, SOB, frequent cough persists, PRN meds given. Cardiac: WDL GI:WDL : WDL Skin: Edema +1 BLE, L arm fistula bruit and thrill present Lines/ Drains: PIV SL Activity: A1 Nutrition: Reg Plans: TBD, Respiratory status should be baseline at discharge Viola Diez RN - 12/25/2021 3:23 AM CDT PRIMARY DIAGNOSIS: GENERIC NURSING OUTPATIENT/OBSERVATION GOALS TO BE MET BEFORE DISCHARGE: 1. ADLs back to baseline: No 2. Activity and level of assistance: Up with standby assistance. 3. Pain status: Pain free. 4. Return to near baseline physical activity: No Ceo Na Nurse Safe discharge environment identified: Yes Barriers to discharge: Yes Entered by: Viola Diez RN 12/25/2021 2:12 AM Pt denies pain. Pt continues to have dyspnea on exertion, A&Ox4. On O2 2L. Coarse LS. Frequent non productive cough, PRN tessalon and nebulizer given. VS stable. Continue POC Please review provider order for any additional goals. Nurse to notify provider when observation goals have been met and patient is ready for discharge. Janett Mensah RN - 12/24/2021 4:58 PM CDT Potassium Date Value Ref Range Status 12/24/2021 5.8 (H) 3.4 - 5.3 mmol/L Final 10/11/2021 5.1 3.4 - 5.3 mmol/L Final Hemoglobin Date Value Ref Range Status 12/24/2021 11.7 (L) 13.3 - 17.7 g/dL Final Creatinine Date Value Ref Range Status 12/24/2021 6.36 (H) 0.67 - 1.17 mg/dL Final Urea Nitrogen Date Value Ref Range Status 12/24/2021 48.7 (H) 8.0 - 23.0 mg/dL Final 10/11/2021 60 (H) 7 - 30 mg/dL Final Sodium Date Value Ref Range Status 12/24/2021 132 (L) 136 - 145 mmol/L Final INR Date Value Ref Range Status 10/08/2021 1.34 (H) 0.85 - 1.15 Final DIALYSIS PROCEDURE NOTE Hepatitis status of previous patient on machine log was checked and verified ok to use with this patients hepatitis status. Patient dialyzed for 4 hrs. on a K2 bath with a net fluid removal of 4L. A BFR of 350 ml/min was obtained via a Left AV Fistula using 15 gauge needles. The treatment plan was discussed with Dr. Schneider during the treatment. Total heparin received during the treatment: 0 units. Needle cannulation sites held x 10 min. Meds given: None Complications: None Person educated: Patient. Knowledge base Substantial. Barriers to learning: None. Educated on Procedure via Verbal mode. Patient verbalized understanding. Pt prefers Verbal education style. ICEBOAT? Timeout performed pre-treatment I: Patient was identified using 2 identifiers C: Consent Signed Yes E: Equipment preventative maintenance is current and dialysis delivery system OK to use B: Hepatitis B Surface Antigen: Negative; Draw Date: 12/22/21 Hepatitis B Surface Antibody: Immune; Draw Date: 03/24/21 O: Dialysis orders present and complete prior to treatment A: Vascular access verified and assessed prior to treatment T: Treatment was performed at a clinically appropriate time ?: Patient was allowed to ask questions and address concerns prior to treatment See Adult Hemodialysis flowsheet in [facility] for further details and post assessment. Machine water alarm in place and functioning. Transducer pods intact and checked every 15min. Pt returned via Wheelchair. Chlorine/Chloramine water system checked every 4 hours. Outpatient Dialysis at [facility] Post treatment report given to Geovanna Zacarias RN regarding 4L of fluid removed, last BP of 95/58 Please remove patient dressing on AVF and AVG needle sites 24 hours after dialysis. If leaking occurs please apply a Band-Aid. Phillip Vinson MD - 12/24/2021 11:02 AM CDT [facility] Hospitalist Progress Note Assessment & Plan ASSESSMENT: 76M with hx of ESRD HD MWF, pAF, and PUD presents with SOB and malaise and found to have RSV infection. PLAN: -Acute RSV: Supportive care w/ scheduled nebs and PRN cough and congestion medications. -ESRD HD MWF w/ Hyperkalemia and Hyponatremia: Nephrology consulted for HD needs while in the hospital. -Type II NC: 2/2 the above. Tx per above. -pAF: Home Toprol. Not on AC due to GIB hx. -PUD: PPI. -DVT Prophy: SCDs. -Disposition: 1-2 days to home. PT/OT consults. Mino Wolf MD Subjective Admitted overnight and seen at bedside. Still feels SOB and generalized malaise. Does not feel comfortable discharging. Objective Blood pressure 107/64, pulse 72, temperature 98.2 ??F (36.8 ??C), temperature source Oral, resp. rate 20, height 1.778 m (5' 10), weight 108.5 kg (239 lb 4.8 oz), SpO2 98 %. PHYSICAL EXAM General: In no acute distress CV: RRR. Lungs: CTAB. Nl WOB. Abd: Non-tender. Ext: No edema. LABS AND IMAGING: Reviewed and pertinent results discussed in assessment and plan. documented in this encounter H&P Notes Dallin Farah DO - 12/24/2021 12:26 AM CDT [facility] Hospitalist H&P Name: Jonatan Mejia Date of : 1945 Age: [age] year old Date of admission: 12/23/2021 Primary care provider: Liban Leos Assessment and Plan: Jonatan Mejia is a 76-year-old male with a history of atrial fibrillation, GI bleeding and GERD, chronic anemia, end-stage renal disease on hemodialysis, coronary artery disease, severe mitral regurgitation, status post clips, bioprosthetic aortic valve, chronic obstructive pulmonary disease, diabetes and hyperlipidemia, presents to [facility] for evaluation of cough and shortness ofbreath, found to have bronchitis and likely some degree of volume overload. 1. Intractable cough and shortness of breath: I suspect due to viral upper respiratory tract infection. His condition may have slightly worsened by abbreviating his dialysis session on Monday. Nevertheless, he is not hypoxic. He is afebrile without leukocytosis. I have fairly low suspicion for bacterial infection such as bronchitis or pneumonia, but given his persisting symptoms and multiple comorbidities, we will treat empirically with a 5-day course of azithromycin. We will see if his symptoms improve after dialysis on Monday. I will send off for procalcitonin level. Mucolytics and antitussiveagents will be ordered as well. 2. End-stage renal disease: The patient on hemodialysis and dialyzes every Monday, Monday, Monday. As above, he abbreviated his session on Monday at 2-1/2 hours. He currently is not hypoxic and does not appear significantly volume overloaded. BNP is elevated about 70,000, but this is not surprising given his poor enzyme clearance and CKD. Nephrology will be consulted for dialysis arrangements. 3. Troponin elevation, I suspect demand ischemia and poor enzyme clearance from renal failure. We will monitor on telemetry and check serial enzymes but otherwise not broaden workup. EKG shows no evidence of ischemia. 4. Paroxysmal atrial fibrillation: EKG shows rate controlled atrial fibrillation. He is not on warfarin due to gastric ulcer and previous GI bleeding. We will continue his [id number] Toprol XL. 5. GERD, peptic ulcer disease, and Brannon's esophagus: Continue oral Protonix. 6. Hypertension, aortic stenosis, status post bioprosthetic aortic valve, and hyperlipidemia: All appear stable. Continue prior to admission Toprol-XL and atorvastatin. 7. Type 2 diabetes mellitus: Currently normal blood sugars and not on chronic diabetic medications. No need for routine Accu-Cheks. 8. The patient will be registered to observation status. 9. Code status: FULL CODE as discussed with the patient. Addendum: RSV PCR has returned positive, I suspect his explains his respiratory symptoms. Will stop azithromycin and continue supportive cares and isolation. Chief Complaint: Cough. History of Present Illness: Jonatan Mejia is a 76-year-old male with history of type 2 diabetes mellitus, end-stage renal disease, on dialysis, hypertension, hyperlipidemia, atrial fibrillation, arthritis, chronic anemia and GERD, who presents to [facility] for evaluation of shortness of breath. History is obtained from my discussion with the patient at the bedside. I also discussed the case with the ED physician, Dr. Faria. The electronic medical record was also reviewed. The patient tells me that he has been experiencing essentially nonstop coughing for the past 2 to 3 days. This is generally nonproductive coughing. He admits to some mild shortness of breath. He deniesany chest pain or palpitations. He denies any fevers. He is not around any sick contacts. He is vaccinated against COVID. He was evidently seen in the [facility] and had a chest x-ray, EKG and COVID testing that were all unremarkable and he was discharged home after receiving a steroid injection. He dialyzes every Monday, Monday and Monday and during his dialysis session on Monday, he had to abort the session at about 2-1/2 hours due to intractable coughing. His condition continued, so he comes to the Emergency Department for evaluation. Here in the hospital, temperature is 98.5, heart rate 67, blood pressure 120/53, respiratory rate 20, and oxygen saturation 94% on room air. Laboratory work shows sodium 134, potassium 5.7, chloride 92, creatinine 5.7, but otherwise normal basic metabolic panel and liver function tests. BNP is greaterthan 70,000 and troponin is 112. CBC notable for hemoglobin of 11.6, which is higher than previous values. CT chest shows diffuse bronchial wall thickening compatible with bronchitis and a trace left pleural effusion. EKG shows atrial fibrillation with a rate of 99 and no ischemia. The patient was given azithromycin and will be admitted for further management. Past Medical History: Past Medical History: Diagnosis Date ??? COPD (chronic obstructive pulmonary disease) (H) ??? Diabetes (H) Past Surgical History: Past Surgical History: Procedure Laterality Date ??? ESOPHAGOSCOPY, GASTROSCOPY, DUODENOSCOPY (EGD), COMBINED N/A 10/10/2021 Procedure: ESOPHAGOGASTRODUODENOSCOPY biopsies; Surgeon: Joce Zamudio MD; Location: OR Social History: Social History Tobacco Use ??? Smoking status: Never Smoker ??? Smokeless tobacco: Former User Types: Chew Quit date: 2000 Substance Use Topics ??? Alcohol use: Not on file Family History: The family history was fully reviewed and non-contributory in this case. Allergies: Allergies Allergen Reactions ??? Blood-Group Specific Substance Other (See Comments) Patient has a Suggestive Warm Auto antibody. Blood products may be delayed. Draw patient 24 hours prior to transfusion. Draw one red top and two purple top tubes for all type and screen orders. ??? Lisinopril Cough Medications: Prior to Admission medications Medication Sig Last Dose Taking? Auth Provider Fpc End Date allopurinol (ZYLOPRIM) 100 MG tablet Take 100 mg by mouth daily Unknown, Entered By History atorvastatin (LIPITOR) 20 MG tablet Take 20 mg by mouth daily Unknown, Entered By History Yes fluticasone (FLONASE) 50 MCG/ACT nasal spray [place] 1 spray in nostril daily Unknown, Entered By History fluticasone-salmeterol (ADVAIR HFA) 115-21 MCG/ACT inhaler Inhale 2 puffs into the lungs 2 times daily Unknown, Entered By History Yes lidocaine-prilocaine (EMLA) 2.5-2.5 % external cream APPLY SMALL AMOUNT TO ACCESS SITE (AVF) 1 TO 2 HOURS BEFORE DIALYSIS. COVER WITH OCCLUSIVE DRESSING (SARAN WRAP) Unknown, Entered By History Yes metoprolol succinate ER (TOPROL XL) 25 MG 24 hr tablet Take 0.5 tablets by mouth daily Unknown, Entered By History Yes multivitamin RENAL (MULTIVITAMIN RENAL) 1 MG capsule Take 1 capsule by mouth Unknown, Entered By History pantoprazole (PROTONIX) 40 MG EC tablet Take 1 tablet (40 mg) by mouth every morning (before breakfast) Dallin Farah, sevelamer carbonate (RENVELA) 800 MG tablet Take 1 tablet by mouth 3 times daily (with meals) Unknown, Entered By History Review of Systems: A Comprehensive greater than 10 system review of systems was carried out. Pertinent positives and negatives are noted above. Otherwise negative for contributory information. Physical Exam: Blood pressure 120/53, pulse 67, temperature 98.5 ??F (36.9 ??C), temperature source Temporal, resp.rate 20, SpO2 94 %. Wt Readings from Last 1 Encounters: 10/11/21 113.2 kg (249 lb 9.6 oz) Exam: GENERAL: No apparent distress. Awake, alert, and fully oriented. HEENT: Normocephalic, atraumatic. Extraocular movements intact. CARDIOVASCULAR: Regular rate and rhythm without murmurs or rubs. No S3. PULMONARY: Clear to auscultation bilaterally. ABDOMINAL: Soft, non-tender, non-distended. Bowel sounds normoactive. EXTREMITIES: No cyanosis or clubbing. No appreciable edema. NEUROLOGICAL: CN 2-12 grossly intact, no focal neurological deficits. DERMATOLOGICAL: No rash, ulcer, bruising, nor jaundice. Data: EKG: Personally reviewed. Laboratory: Recent Labs Lab 12/23/211950 WBC 7.2 HGB 11.6* HCT 37.6* MCV 101* PLT 152 Recent Labs Lab 12/23/211950 NA 134* POTASSIUM 5.7* CHLORIDE 92* CO2 26 ANIONGAP 16* GLC 116* BUN 47.9* CR 5.77* GFRESTIMATED 10* GAMA 10.2 No results for input(s): CULT in the last 168 hours. Imaging: Recent Results (from the past 24 hour(s)) Chest XR, PA & LAT Narrative EXAM: XR CHEST 2 VIEWS LOCATION: [facility] DATE/TIME: 12/23/2021 8:06 PM INDICATION: sob COMPARISON: None. Impression IMPRESSION: Status post median sternotomy and valve replacement. Heart size is enlarged. Prominenceof central pulmonary vasculature without overt failure or lobar consolidation. No effusions. Calcified granulomas bilaterally. No acute bony abnormality. CT Chest Pulmonary Embolism w Contrast Narrative EXAM: CT CHEST PULMONARY EMBOLISM W CONTRAST LOCATION: [facility] DATE/TIME: 12/23/2021 9:50 PM INDICATION: Worsening dyspnea [...] trapping. No focal airspace consolidation. Trace left pleuraleffusion. No pneumothorax. Calcified left pleural plaques, compatible with prior asbestos exposure. MEDIASTINUM/AXILLAE: Cardiomegaly. Prosthetic aortic valve. No pericardial effusion. No lymphadenopathy. Calcified left hilar lymph nodes, compatible with old granulomas disease. CORONARY ARTERY CALCIFICATION: Severe. UPPER ABDOMEN: Upper abdominal ascites. Few splenic calcifications, compatible with old granulomatous disease. Status post cholecystectomy. MUSCULOSKELETAL: Gynecomastia. Multilevel degenerative changes of the spine. Bridging ossification along the thoracic vertebral bodies, either diffuse idiopathic skeletal hyperostosis or ankylosing spondylitis. Median sternotomy wires. Impression IMPRESSION: 1. No acute pulmonary embolism. 2. Diffuse bronchial wall thickening, compatible with bronchitis. Hypoinflated lungs with scattered areas of air trapping. 3. Trace left pleural effusion. Dallin Farah DO [facility] Hospitalist [facility] [place] [address] 12/24/2021 MT: [facility] Name: JONATAN MEJIA MRN: [id number] Account: [id number] : 1945 Admitted: 12/23/2021 Document: [id number] documented in this encounter Consult Notes Lior Schneider MD - 12/24/2021 2:13 PM CDTAssociated Order(s): NEPHROLOGY IP CONSULT [facility] RENAL CONSULTATION NOTE REFERRING MD: Dr. Farah REASON FOR CONSULTATION: DATE OF CONSULTATION: 12/24/21 SHORTHAND CAMARILLO FOR MY NOTES: c = with, s = without, p = after, a = before, x = except, asx = asymptomatic, tx = transplant or treatment, sx = symptoms or symptomatic, cx = canceled or culture, rxn = reaction, yday = yesterday, nl = normal, abx = antibiotics, fxn = function, dx = diagnosis, dz = disease, m/h = melena/hematochezia, c/d/l/vasquez = cramping/dizziness/lightheadedness/headache, d/c = discharge or diarrhea/constipation, f/c/n/v = fevers/chills/nausea/vomiting, cp/sob = chest pain/shortness of breath, tbv = total body volume, rxn = reaction, tdc = tunneled dialysis catheter, dredge captain = prior to admission, hd = hemodialysis, pd = peritoneal dialysis, hhd = home hemodialysis, edw = estimated dry wt HPI: Jonatan Mejia is a 76 year old male c ESKD 2 DM2 who dialyses MWF via a LAF at the [facility] under the care of Dr. Pompa ([facility]) and was admitted on 12/23/2021 c sob and cough and found to have an RSV infxn. Pt developed a cough earlier this wk that worsened progressively. It was bad enough on at HD that he had to terminate the tx early. No assoc f/c/n/v. No cp/abd pain. He uses o2 while on HD, but not o/w. Today, he is feeling a bit better, but not yet ready to go home. He is still a bit weak. He generally takes 4L off at HD and feels that goal should be achievable today. ROS: A complete review of systems was performed and is negative x as noted above. PMH: Past Medical History: Diagnosis Date ??? COPD (chronic obstructive pulmonary disease) (H) ??? Diabetes (H) PSH: Past Surgical History: Procedure Laterality Date ??? ESOPHAGOSCOPY, GASTROSCOPY, DUODENOSCOPY (EGD), COMBINED N/A 10/10/2021 Procedure: ESOPHAGOGASTRODUODENOSCOPY biopsies; Surgeon: Joce Zamudio MD; Location: OR MEDICATIONS: ??? atorvastatin 20 mg Oral Daily ??? fluticasone 1 spray Nasal Daily ??? fluticasone-salmeterol 2 puff Inhalation Q12H ??? guaiFENesin 600 mg Oral BID ??? ipratropium - albuterol 0.5 mg/2.5 mg/3 mL 3 mL Nebulization Q6H ??? metoprolol succinate ER 12.5 mg Oral Daily ??? pantoprazole 40 mg Oral QAM AC ALLERGIES: Allergies as of 12/23/2021 - Reviewed 12/23/2021 Allergen Reaction Noted ??? Blood-group specific substance Other (See Comments) 01/15/2019 ??? Lisinopril Cough 06/07/2006 FH: No family history on file. R/NC SH: Social History Socioeconomic History ??? Marital status: Single Spouse name: Not on file ??? Number of children: Not on file ??? Years of education: Not on file ??? Highest education level: Not on file Occupational History ??? Not on file Tobacco Use ??? Smoking status: Never Smoker ??? Smokeless tobacco: Former User Types: Chew Quit date: 2000 Vaping Use ??? Vaping Use: Never used Substance and Sexual Activity ??? Alcohol use: Not on file ??? Drug use: Not on file ??? Sexual activity: Not on file Other Topics Concern ??? Not on file Social History Narrative ??? Not on file Social Determinants of Health Financial Resource Strain: Not on file Food Insecurity: Not on file Transportation Needs: Not on file Physical Activity: Not on file Stress: Not on file Social Connections: Not on file Intimate Partner Violence: Not on file Housing Stability: Not on file PHYSICAL EXAM: BP 100/52 (BP Location: Right arm) Pulse 74 Temp 98.6 ??F (37 ??C) (Oral) Resp 20 Ht 1.778 m(5' 10) Wt 108.5 kg (239 lb 4.8 oz) SpO2 94% BMI 34.34 kg/m?? GENERAL: awake, alert, NAD HEENT: normocephalic, no gross abnormalities; pupils equal, EOMI, no scleral icterus or conj edema CV: irreg, nl S1/S2; + edema RESP: CTA B c good efforts GI: abd o/s/nt/nd, BS present; no masses MUSCULOSKELETAL: extremities nl - no gross deformities noted SKIN: no suspicious lesions or rashes, dry to touch NEURO: strength normal and symmetric PSYCH: mood good, affect appropriate LYMPH: no palpable ant/post cervical and supraclavicular adenopathy LINES: + PIV OTHER: Access - LAF c good thrill/bruit LABS: CBC RESULTS: Recent Labs Lab 12/24/21 0630 12/23/211950 WBC 7.5 7.2 RBC 3.76* 3.73* HGB 11.7* 11.6* HCT 38.3* 37.6* PLT 155 152 BMP RESULTS: Recent Labs Lab 12/24/21 0630 12/24/21 0436 12/23/211950 NA 132* -- 134* POTASSIUM 5.8* -- 5.7* CHLORIDE 91* -- 92* CO2 27 -- 26 BUN 48.7* -- 47.9* CR 6.36* -- 5.77* GLC 134* 128* 116* GAMA 10.3* -- 10.2 INRNo lab results found in last 7 days. DIAGNOSTICS: Personally reviewed - CXR- cardiomegaly, some pulm vasc congestion; CT - no PE A/P: Jonatan Mejia is a 76 year old male c ESKD who has hypoxia 2 RSV and hyperkalemia. 1. ESKD c hyperkalemia. Pt dialyses on a MWF schedule and is due for HD today. His K is high and hisCXR looks like he needs some fluid off. A. HD today per routine orders - 4h, - 4L UF, LAF c BFR 400, 15g, no heparin, k2. 2. Hypoxia 2 RSV. Pt is on o2 and is feeling ok. CXR doesn't show pneumonia. Sx tx for his cough andsob. A. Continue o2, nebs, inhalers prn. 3. Anemia. Hb is stable. No need for ESAs. A. Follow clinically. 4. Afib. Rate controlled. A. Continue metop. 5. FEN. Pt is on a dialysis diet. A. Same diet. Thank you for this consultation. We will follow c you. Please call if any questions. Attestation: I have reviewed today's relevant vital signs, notes, medications, labs and imaging. Lior Schneider MD [facility] - Nephrology [phone] documented in this encounter ED Notes Layne Hernandez RN - 12/24/2021 2:23 AM CDT [facility] ED Nurse Handoff Report Jonatan Mejia is a 76 year old male ED Chief complaint: Shortness of Breath . ED Diagnosis: Final diagnoses: Other hypervolemia NSTEMI (non-ST elevated myocardial infarction) (H) ESRD (end stage renal disease) on dialysis (H) RSV bronchitis Allergies: Allergies Allergen Reactions ??? Blood-Group Specific Substance Other (See Comments) Patient has a Suggestive Warm Auto antibody. Blood products may be delayed. Draw patient 24 hours prior to transfusion. Draw one red top and two purple top tubes for all type and screen orders. ??? Lisinopril Cough Code Status: Full Code Activity level - Baseline/Home: Independent. Activity Level - Current: Stand by Assist. Lift room needed: No. Bariatric: No Replenishment Associate Needed: No Isolation: Yes. Infection: Not Applicable Other . Vital Signs: Vitals: 12/23/21 1925 12/24/21 0207 BP: 120/53 92/63 Pulse: 67 69 Resp: 20 18 Temp: 98.5 ??F (36.9 ??C) TempSrc: Temporal SpO2: 94% 92% Cardiac Rhythm: , Pain level: Patient confused: No. Patient Falls Risk: No. Elimination Status: Has voided Patient Report - Initial Complaint: dyspnea. Focused Assessment: Dyspnea with laying down and exertion, cough Tests Performed: Labs Ordered and Resulted from Time of ED Arrival to Time of ED Departure COMPREHENSIVE METABOLIC PANEL - Abnormal Result Value Sodium 134 (*) Potassium 5.7 (*) Chloride 92 (*) Carbon Dioxide (CO2) 26 Anion Gap 16 (*) Urea Nitrogen 47.9 (*) Creatinine 5.77 (*) Calcium 10.2 Glucose 116 (*) Alkaline Phosphatase 106 AST 36 ALT 17 Protein Total 7.9 Albumin 3.9 Bilirubin Total 0.8 GFR Estimate 10 (*) CBC WITH PLATELETS AND DIFFERENTIAL - Abnormal WBC Count 7.2 RBC Count 3.73 (*) Hemoglobin 11.6 (*) Hematocrit 37.6 (*) MCV 101 (*) MCH 31.1 MCHC 30.9 (*) RDW 16.7 (*) Platelet Count 152 % Neutrophils 81 % Lymphocytes 5 % Monocytes 14 % Eosinophils 0 % Basophils 0 % Immature Granulocytes 0 NRBCs per 100 WBC 0 Absolute Neutrophils 5.8 Absolute Lymphocytes 0.4 (*) Absolute Monocytes 1.0 Absolute Eosinophils 0.0 Absolute Basophils 0.0 Absolute Immature Granulocytes 0.0 Absolute NRBCs 0.0 TROPONIN T, HIGH SENSITIVITY - Abnormal Troponin T, High Sensitivity 112 (*) NT PROBNP INPATIENT - Abnormal N terminal Pro BNP Inpatient >70,000 (*) INFLUENZA A/B & SARS-COV2 PCR MULTIPLEX - Abnormal Influenza A PCR Negative Influenza B PCR Negative RSV PCR Positive (*) SARS CoV2 PCR Negative TROPONIN T, HIGH SENSITIVITY CT Chest Pulmonary Embolism w Contrast Final Result IMPRESSION: 1. No acute pulmonary embolism. 2. Diffuse bronchial wall thickening, compatible with bronchitis. Hypoinflated lungs with scattered areas of air trapping. 3. Trace left pleural effusion. Chest XR, PA & LAT Final Result IMPRESSION: Status post median sternotomy and valve replacement. Heart size is enlarged. Prominence of central pulmonary vasculature without overt failure or lobar consolidation. No effusions. Calcified granulomas bilaterally. No acute bony abnormality. . Abnormal Results: Treatments provided: see mar Family Comments: OBS brochure/video discussed/provided to patient: N/A ED Medications: Medications acetaminophen (TYLENOL) tablet 650 mg (has no administration in time range) Or acetaminophen (TYLENOL) Suppository 650 mg (has no administration in time range) melatonin tablet 1 mg (has no administration in time range) senna-docusate (SENOKOT-S/PERICOLACE) 8.6-50 MG per tablet 1 tablet (has no administration in time range) Or senna-docusate (SENOKOT-S/PERICOLACE) 8.6-50 MG per tablet 2 tablet (has no administration in time range) polyethylene glycol (MIRALAX) Packet 17 g (has no administration in time range) bisacodyl (DULCOLAX) suppository 10 mg (has no administration in time range) ondansetron (ZOFRAN ODT) ODT tab 4 mg (has no administration in time range) Or ondansetron (ZOFRAN) injection 4 mg (has no administration in time range) guaiFENesin (MUCINEX) 12 hr tablet 600 mg (has no administration in time range) guaiFENesin (ROBITUSSIN) 20 mg/mL solution 10 mL (has no administration in time range) benzonatate (TESSALON) capsule 100 mg (has no administration in time range) ipratropium - albuterol 0.5 mg/2.5 mg/3 mL (DUONEB) neb solution 3 mL (has no administration in timerange) atorvastatin (LIPITOR) tablet 20 mg (has no administration in time range) fluticasone (FLONASE) 50 MCG/ACT spray 1 spray (has no administration in time range) fluticasone-vilanterol (BREO ELLIPTA) 100-25 MCG/INH inhaler 1 puff (has no administration in time range) metoprolol succinate ER (TOPROL-XL) 24 hr half-tab 12.5 mg (has no administration in time range) pantoprazole (PROTONIX) EC tablet 40 mg (has no administration in time range) albuterol (PROVENTIL) neb solution 2.5 mg (2.5 mg Nebulization Given 12/23/212114) sodium chloride (PF) 0.9% PF flush 100 mL (90 mLs Intravenous Given 12/23/212132) iopamidol (ISOVUE-370) solution 500 mL (73 mLs Intravenous Given 12/23/212132) benzonatate (TESSALON) capsule 100 mg (100 mg Oral Given 12/24/21) azithromycin (ZITHROMAX) tablet 500 mg (500 mg Oral Given 12/24/21) oxymetazoline (AFRIN) 0.05 % spray 2 spray (2 sprays Nasal Given 12/24/21 0001) Drips infusing: No For the majority of the shift, the patient's behavior Green. Interventions performed were . Sepsis treatment initiated: No Patient tested for COVID 19 prior to admission: YES ED Nurse Name/Phone Number: Saroj Pozo, 2:23 AM RECEIVING UNIT ED HANDOFF REVIEW Above ED Nurse Handoff Report was reviewed: Yes Reviewed by: Layne Hernandez RN on December 24, 2021 at 2:29 AM Nimisha Vinson RN - 12/23/2021 7:24 PM CDT Shortness of breath since Monday Was seen in [facility] ER yesterday. Was given IV steroids, nebulizer, CXR. On dialysis, Monday's run cut short Pt now feel shortness of breath is worse than yesterday Cough present Triage Assessment Row Name 12/23/211923 Triage Assessment (Adult) Airway WDL WDL Respiratory WDL Respiratory WDL X;rhythm/pattern Rhythm/Pattern, Respiratory shortness of breath Nakita Pruitt MD - 12/23/2021 7:14 PM CDT History Chief Complaint: Shortness of Breath The history is provided by the patient and a relative. Jonatan Mejia is a 76 year old male with history of ESRD on HD M/W/F and atrial fibrillation (notanticoagulated due to GI bleed) who presents with shortness of breath and cough. Jonatan has chronic cough and dyspnea but these issues got much worse 2-3 days ago. He actually stopped his dialysis 1.5 hours early yesterday because of his dyspnea and went to [facility] emergency department. Per his report, they did a COVID test, EKG, and CXR which were unremarkable and he was discharged after a shot ofsteroids. Despite that visit he has had worsening of dyspnea, particularly with exertion, and coughwhich is nearly constant - every 5th breath per his estimation. He has no chest pain, but his stomach muscles are sore from so much coughing. He denies change in lower extremity edema. He denies recenttravel, vomiting, diarrhea, and fever. Review of Systems Constitutional: Negative for fever. Respiratory: Positive for cough and shortness of breath. Cardiovascular: Negative for chest pain and leg swelling (baseline). Gastrointestinal: Negative for diarrhea and vomiting. All other systems reviewed and are negative. Allergies: Blood-Group Specific Substance Lisinopril Medications: Zyloprim Lipitor Toprol XL Protonix Renvela Past Medical History: Atrial fibrillation Brannon's esophagus with dysplasia CKD stage 5 Anemia in stage 5 Coronary arthrosclerosis Diabetes type II Hypertension Heart failure with preserved ejection fraction Hyperlipidemia Anemia Obesity Non rheumatic mitral valve stenosis Osteoarthritis Polyneuropathy Hyperparathyroidism UGI bleed Past Surgical History: EGD x 2 Aortic valve replacement Family History: Hypertension Heart disease Social History: Patient came from home. Patient is accompanied in the ED with step daughter. Patient formerly used chewing tobacco but has never smoked. Physical Exam Patient Vitals for the past 24 hrs: BP Temp Temp src Pulse Resp SpO2 12/23/21 1925 120/53 98.5 ??F (36.9 ??C) Temporal 67 20 94 % Physical Exam General: Well-developed and well-nourished. Well appearing elderly man. Cooperative. Head: Atraumatic. Eyes: Conjunctivae, lids, and sclerae are normal. Neck: Supple. Normal range of motion. CV: Regular rate and rhythm. Normal heart sounds with no murmurs, rubs, or gallops detected. Resp: No respiratory distress. Bibasilar rales with rare expiratory wheeze. Frequent cough. GI: Soft. Non-distended. Non-tender. MS: Normal ROM. LUE fistula with palpable thrill. Skin: Warm. Non-diaphoretic. No pallor. Neuro: Awake. A&Ox3. Normal strength. Psych: Normal mood and affect. Normal speech. Vitals reviewed. Emergency Department Course EKG Indication: Shortness of breath Time: 193 Rate 99 bpm. QRS duration 120. QT/QTc 378/485. Atrial fibrillation Right axis deviation Right ventricular hypertrophy Nonspecific ST abnormality Abnormal ECG No acute ST changes. No change compared to prior, dated 10/09/2021. Imaging: CT Chest Pulmonary Embolism w Contrast Final Result IMPRESSION: 1. No acute pulmonary embolism. 2. Diffuse bronchial wall thickening, compatible with bronchitis. Hypoinflated lungs with scattered areas of air trapping. 3. Trace left pleural effusion. Chest XR, PA & LAT Final Result IMPRESSION: Status post median sternotomy and valve replacement. Heart size is enlarged. Prominence of central pulmonary vasculature without overt failure or lobar consolidation. No effusions. Calcified granulomas bilaterally. No acute bony abnormality. Report per radiology Laboratory: Labs Ordered and Resulted from Time of ED Arrival to Time of ED Departure COMPREHENSIVE METABOLIC PANEL - Abnormal Result Value Sodium 134 (*) Potassium 5.7 (*) Chloride 92 (*) Carbon Dioxide (CO2) 26 Anion Gap 16 (*) Urea Nitrogen 47.9 (*) Creatinine 5.77 (*) Calcium 10.2 Glucose 116 (*) Alkaline Phosphatase 106 AST 36 ALT 17 Protein Total 7.9 Albumin 3.9 Bilirubin Total 0.8 GFR Estimate 10 (*) CBC WITH PLATELETS AND DIFFERENTIAL - Abnormal WBC Count 7.2 RBC Count 3.73 (*) Hemoglobin 11.6 (*) Hematocrit 37.6 (*) MCV 101 (*) MCH 31.1 MCHC 30.9 (*) RDW 16.7 (*) Platelet Count 152 % Neutrophils 81 % Lymphocytes 5 % Monocytes 14 % Eosinophils 0 % Basophils 0 % Immature Granulocytes 0 NRBCs per 100 WBC 0 Absolute Neutrophils 5.8 Absolute Lymphocytes 0.4 (*) Absolute Monocytes 1.0 Absolute Eosinophils 0.0 Absolute Basophils 0.0 Absolute Immature Granulocytes 0.0 Absolute NRBCs 0.0 TROPONIN T, HIGH SENSITIVITY - Abnormal Troponin T, High Sensitivity 112 (*) NT PROBNP INPATIENT - Abnormal N terminal Pro BNP Inpatient >70,000 (*) INFLUENZA A/B & SARS-COV2 PCR MULTIPLEX - Abnormal Influenza A PCR Negative Influenza B PCR Negative RSV PCR Positive (*) SARS CoV2 PCR Negative Emergency Department Course: Reviewed: I reviewed nursing notes, vitals, past medical history, and Care Everywhere. Assessments: 2104 I obtained history and examined the patient as noted above. 2316 I rechecked the patient and explained findings. The neb helped but he wants something for a cough. 2353 I rechecked the patient and explained findings of RSV. Consults: [address] Dallin Farah of the hospitalist service and discussed patient admission. He accepted care of the patient. Interventions: 2114 Proventil 2.5 mg Neb 0000 Tessalon 100 mg PO 0000 Azithromycin 500 mg PO 0001 Afrin Nasal spray Disposition: The patient was admitted to the hospital under the care of Dr. Dallin Farah. Impression & Plan Medical Decision Making: Jonatan is a 76 year old man presenting with worsening cough and shortness of breath for 2-3 days despite a visit to outside emergency department yesterday with reported reassuring work-up. He denies chest pain or fever. He appears well on exam though he does have frequent cough. He has bibasilar rales and a rare wheeze but is in no respiratory distress. He cut his dialysis short yesterday due to his dyspnea and I strongly suspect he has viral illness causing initial cough and shortness of breath whichhas been compounded by incomplete dialysis and volume overload. EKG does not reveal ischemic changes. He does have a troponin elevation to 112. I suspect this is demand ischemia due to his volume overload with BNP of greater than 70,000. He is not anticoagulated so pulmonary embolism was certainly considered. He was sent for CT angiogram of the chest which, fortunately, does not reveal pulmonary embolism but evidence of bronchitis. Labs are otherwise reassuring with abnormal BMP as expected given ESRD. There is no leukocytosis. He felt somewhat improved with an albuterol inhaler with cessation of his rare wheezing but continued to complain of cough and dyspnea. He warrants hospitalization for further monitoring of his symptoms and he will need dialysis tomorrow. I am hopeful that this will improve at least a degree of his symptoms. He verbalized understanding of plan for hospitalization and I answered all his questions. I spoke with Dr. Dallin Farah, hospitalist, who accepted admission. He recommended azithromycin given Jonatan's comorbidities. I administered this as well as Tessalon and Afrin for his patient's symptoms. Shortly thereafter his RSV test resulted positive. This is almost certainly the initial inciting issue and Jonatan was notified of this finding. Diagnosis: ICD-10-CM 1. RSV bronchitis J20.5 2. Other hypervolemia E87.79 3. NSTEMI (non-ST elevated myocardial infarction) (H) I21.4 4. ESRD (end stage renal disease) on dialysis (H) N18.6 Z99.2 Scribe Disclosure: I, Dom Camarillo, am serving as a scribe at 8:52 PM on 12/23/2021 to document services personally performed by Nakita Pruitt MD based on my observations and the provider's statements to me. Nakita Pruitt MD 12/24/21 1328 documented in this encounter Miscellaneous Notes Plan of Care - Gladys Campuzano RN - 12/25/2021 4:12 PM CDT PRIMARY DIAGNOSIS: GENERALIZED WEAKNESS OUTPATIENT/OBSERVATION GOALS TO BE MET BEFORE DISCHARGE 1. Orthostatic performed: Yes: 2. Tolerating PO medications: Yes 3. Return to near baseline physical activity: Yes 4. Cleared for discharge by consultants (if involved): Yes Ceo Na Nurse Safe discharge environment identified: Yes Barriers to discharge: No Entered by: Gladys Campuzano RN 12/25/2021 4:33 PM Please review provider order for any additional goals. Nurse to notify provider when observation goals have been met and patient is ready for discharge. A&OX4. Up with SBA. VSS. On RA. SOB at times. LS coarse. Discharge instruction given to patient and daughter, Expressed understanding. Patient discharge home with daughter. Plan of Care - Gladys Campuzano RN - 12/25/2021 1:23 PM CDT PRIMARY DIAGNOSIS: GENERIC NURSING OUTPATIENT/OBSERVATION GOALS TO BE MET BEFORE DISCHARGE: 1. ADLs back to baseline: No 2. Activity and level of assistance: Up with standby assistance. 3. Pain status: Pain free. 4. Return to near baseline physical activity: No Ceo Na Nurse Safe discharge environment identified: No Barriers to discharge: Yes Pt. Is on 1L NC Entered by: Gladys Campuzano RN 12/25/2021 1:23 PM Please review provider order for any additional goals. Nurse to notify provider when observation goals have been met and patient is ready for discharge. Plan of Care - Jeff Martinez RN - 12/25/2021 12:17 AM CDT PRIMARY DIAGNOSIS: N-Stemi OUTPATIENT/OBSERVATION GOALS TO BE MET BEFORE DISCHARGE: 1. Ruled out acute coronary syndrome (negative or stable Troponin): Yes 2. Pain Status: Pain free. 3. Appropriate provocative testing performed: No - Stress Test Procedure: Not indicated - Interpretation of cardiac rhythm per commercial technician: A-Fib CVR 4. Cleared by Consultants (if applicable):No 5. Return to near baseline physical activity: No Ceo Na Nurse Safe discharge environment identified: Yes Barriers to discharge: Yes Entered by: Jeff Martinez RN 12/25/2021 12:18 AM Pt remained VSS and A&O. On 1L nc. Complain of SOB w/ coarse LS. Continue POC Please review provider order for any additional goals. Nurse to notify provider when observation goals have been met and patient is ready for discharge. Care Plan - Kaylee Chaudhari RN - 12/24/2021 7:43 PM CDT RN([phone])- Did not see/assess patient during shift as he was under the care of the central office supervisor. Returned to unit at 1910. Plan of Care - Geovanna Zee RN - 12/24/2021 12:41 PM CDT Temp: 98.2 ??F (36.8 ??C) Temp src: Oral BP: 107/64 Pulse: 72 Resp: 22 SpO2: 100 % O2 Device: Nasal cannula Oxygen Delivery: 1.5 LPM Orientation: x4 VS: stable Pain: denies Tele: A-fib, CVR Activity: sitting on edge of bed. Ambulates to bathroom Resp: LS coarse, SOB on exertion, on 1.5l, stable O2 GI: was nauseated during breakfast, Zofran given. Thurmond better after that. Not much appetite today : no urine, pt is on hemodialysis - dialysis today at 1500 Skin: dry skin, scattered scabbing Lines: PIV SL, Fistual WDL Other: Pt does not feel comfortable discharging today. Still SOB and feeling ill Plan: continue with plan of care Pharmacy-Admission Medication History - Luna Colón RPH - 12/24/2021 10:10 AM CDT Admission medication history interview status for this patient is complete. See [facility] admission navigator for allergy information, prior to admission medications and immunization status. Medication history interview done, indicate source(s): Patient Medication history resources (including written lists, pill bottles, clinic record): Home med list, [facility] dispense records Pharmacy: [facility] Changes made to [employer] medication list: Added: none Changed: noted that pt normally takes Renvela only twice daily, prescribed as TID Reported as Not Taking: none Removed: none Actions taken by pharmacist (provider contacted, etc):None Additional medication history information:None Medication reconciliation/reorder completed by provider prior to medication history? Y (Y/N) Prior to Admission medications Medication Sig Last Dose Taking? Auth Provider Fpc End Date allopurinol (ZYLOPRIM) 100 MG tablet Take 100 mg by mouth daily 12/22/2021 Yes Unknown, Entered By History atorvastatin (LIPITOR) 20 MG tablet Take 20 mg by mouth daily 12/22/2021 Yes Unknown, Entered By History Yes fluticasone (FLONASE) 50 MCG/ACT nasal spray [place] 1 spray in nostril daily 12/22/2021 Yes Unknown, Entered By History fluticasone-salmeterol (ADVAIR HFA) 115-21 MCG/ACT inhaler Inhale 2 puffs into the lungs 2 times daily 12/22/2021 Yes Unknown, Entered By History Yes lidocaine-prilocaine (EMLA) 2.5-2.5 % external cream APPLY SMALL AMOUNT TO ACCESS SITE (AVF) 1 TO 2 HOURS BEFORE DIALYSIS. COVER WITH OCCLUSIVE DRESSING (SARAN WRAP) Past Month at Unknown time Yes Unknown, Entered By History Yes metoprolol succinate ER (TOPROL XL) 25 MG 24 hr tablet Take 0.5 tablets by mouth daily 12/22/2021 YesUnknown, Entered By History Yes multivitamin RENAL (MULTIVITAMIN RENAL) 1 MG capsule Take 1 capsule by mouth daily 12/22/2021 Yes Unknown, Entered By History pantoprazole (PROTONIX) 40 MG EC tablet Take 1 tablet (40 mg) by mouth every morning (before breakfast) 12/22/2021 Yes Dallin Farah DO sevelamer carbonate (RENVELA) 800 MG tablet Take 1 tablet by mouth 3 times daily (with meals) 12/22/2021 Yes Unknown, Entered By History Plan of Care - Layne Hernandez RN - 12/24/2021 5:23 AM CDT PRIMARY DIAGNOSIS: RSV OUTPATIENT/OBSERVATION GOALS TO BE MET BEFORE DISCHARGE: 1. Vital signs stable: Yes 2. Improvement of peak flow to greater than 70% sustained off nebulizer for 4 hours: Yes 3. Dyspnea improved and O2 sats >88% at RA or at prior home O2 therapy level: No SpO2: 99 %, O2 Device: Nasal cannula 4. Short term supplemental O2 needed for use with activity at home: No 5. Tolerating adequate PO diet and medications: Yes 6. Return to near baseline physical activity: Yes Ceo Na Nurse Safe discharge environment identified: Yes Barriers to discharge: No Entered by: Layne Hernandez RN 12/24/2021 5:23 AM Please review provider order for any additional goals. Nurse to notify provider when observation goals have been met and patient is ready for discharge.Goal Outcome Evaluation: Pt admitted for RSV, congested cough. Pt with oxygen at 2 liters per comfort. Tele reading A fib. Due for dialysis today, neph consult. documented in this encounter Plan of Treatment Scheduled Orders Name Type Priority Associated Diagnoses Order S chedule EKG 12-lead, tracing EKG Routine Enter c ondition for order only release in comm ents for 1 Occurrences sta rting 12/24/2021 documented as of this encounter Procedures Procedure Name Priority Date/Time Associated Comments Diagnosis EXTRA TUBE Routine 12/25/2021 7:34 AM Results f or this CDT procedure are i n the results section. EXTRA PURPLE TOP TUBE Routine 12/25/2021 7:34 AM Results for this CDT procedure are i n the results section. BASIC METABOLIC PANEL Routine 12/25/2021 7:34 AM Results for this CDT procedure are i n the results section. TROPONIN T, HIGH Timed 12/24/2021 6:30 AM Resul ts for this SENSITIVITY CDT procedure are i n the results section. BASIC METABOLIC PANEL Routine 12/24/2021 6:30 AM Results for this CDT procedure are i n the results section. CBC WITH PLATELETS Routine 12/24/2021 6:30 AM Res ults for this CDT procedure are i n the results section. GLUCOSE BY METER Routine 12/24/2021 4:36 AM Resul ts for this CDT procedure are i n the results section. TROPONIN T, HIGH STAT 12/24/2021 2:05 AM Resul ts for this SENSITIVITY CDT procedure are i n the results section. INFLUENZA A/B & STAT 12/23/2021 10:53 Results for this SARS-COV2 PCR PM CDT procedure are in MULTIPLEX the results section. CT CHEST PULMONARY STAT 12/23/2021 9:50 PM Res ults for this EMBOLISM W CONTRAST CDT procedur e are in the results section. XR CHEST 2 VIEWS STAT 12/23/2021 8:06 PM Resul ts for this CDT procedure are i n the results section. EXTRA TUBE STAT 12/23/2021 7:51 PM Results f or this CDT procedure are i n the results section. EXTRA RED TOP TUBE STAT 12/23/2021 7:51 PM Res ults for this CDT procedure are i n the results section. EXTRA BLUE TOP TUBE STAT 12/23/2021 7:51 PM Re sults for this CDT procedure are i n the results section. CBC WITH PLATELETS AND STAT 12/23/2021 7:51 PM Results for this DIFFERENTIAL CDT procedure are i n the results section. TROPONIN T, HIGH STAT 12/23/2021 7:51 PM Resul ts for this SENSITIVITY CDT procedure are i n the results section. CBC WITH PLATELETS & STAT 12/23/2021 7:51 PM R esults for this DIFFERENTIAL CDT procedure are i n the results section. NT PROBNP INPATIENT STAT 12/23/2021 7:51 PM Re sults for this CDT procedure are i n the results section. COMPREHENSIVE STAT 12/23/2021 7:51 PM Results for this METABOLIC PANEL CDT procedure ar e in the results section. EKG 12-LEAD, TRACING STAT 12/23/2021 7:33 PM R esults for this ONLY CDT procedure are i n the results section. documented in this encounter Results Extra Purple Top Tube (12/25/2021 7:34 [...] City/State/ZIP Code Phon e Number [place] [address] Care [facility] [address] Lab (1st floor, no room number) (ABNORMAL) Basic metabolic panel (12/25/2021 7:34 AM CDT) [facility] Method Time Signature Sodium 135 (L) 136 - 145 12/25/2021 LABORATORY mmol/L 8:25 AM CDT Potassium 5.3 3.4 - 5.3 12/25/2021 LABORATORY mmol/L 8:25 AM CDT Chloride 93 (L) 98 - 107 12/25/2021 LABORATORY mmol/L 8:25 AM CDT Carbon Dioxide 27 22 - 29 12/25/2021 LABORATORY (CO2) mmol/L 8:25 AM CDT Anion Gap 15 7 - 15 12/25/2021 LABORATORY mmol/L 8:25 AM CDT Urea Nitrogen 34.6 (H) 8.0 - 23.0 12/25/2021 LABORATORY mg/dL 8:25 AM CDT Creatinine 5.13 (H) 0.67 - 12/25/2021 LABORATORY 1.17 mg/dL 8:25 AM CDT Calcium 9.9 8.8 - 10.2 12/25/2021 LABORATORY mg/dL 8:25 AM CDT Glucose 78 70 - 99 12/25/2021 LABORATORY mg/dL 8:25 AM CDT GFR Estimate 11 (L) >60 12/25/2021 LABORATORY mL/min/1.7 8:25 AM CDT 3m2 Comment: Effective March 09, 2021 eGF Rcr in adults is calculated using the 2020 CKD-EPI creatinine equation which includ es age and gender (Brigette et al., NEJ, DOI: 10.1056/ZDQTob3054967) Specimen Anatomical Collection Method / Collection Time Recei annie Time (Source) Location / Volume Laterality Blood STRUCTURE OF LEFT Venipuncture / 12/25/2021 7:34 12/25 7:38 HAND / Unknown Unknown AM CDT AM CDT Phillip Vinson MD LAB - BLOOD ORDERABLES Performing Organization Address City/State/ZIP Code Phon e Number [place] [address] Care Lab [address] Lab (1st floor, no room number) (ABNORMAL) Troponin T, High Sensitivity (12/24/2021 6:30 AM CDT) [facility] [employer] Method Time Signature Troponin T, High 107 [...] City/State/ZIP Code Phon e Number [place] [address] Care Lab [address] [facility] Lab (1st floor, no room number) (ABNORMAL) CBC with platelets (12/24/2021 6:30 AM CDT) [facility] [employer] Method Time Signature WBC Count 7.5 4.0 [...] AM CDT MCH 31.1 26.5 - 12/24/2021 [facility] 33.0 pg 7:18 AM CDT MCHC [...] City/State/ZIP Code Phon e [place] [address] Care Lab [address] Lab (1st floor, no room number) (ABNORMAL) Basic metabolic panel (12/24/2021 6:30 AM CDT) [facility] Method Time Signature Sodium 132 (L) 136 - 145 12/24/2021 LABORATORY mmol/L 7:38 AM CDT Potassium 5.8 (H) 3.4 - 5.3 12/24/2021 LABORATORY mmol/L 7:38 AM CDT Chloride 91 (L) 98 - 107 12/24/2021 LABORATORY mmol/L 7:38 AM CDT Carbon Dioxide 27 22 - 29 12/24/2021 LABORATORY (CO2) mmol/L 7:38 AM CDT Anion Gap 14 7 - 15 12/24/2021 LABORATORY mmol/L 7:38 AM CDT Urea Nitrogen 48.7 (H) 8.0 - 23.0 12/24/2021 LABORATORY mg/dL 7:38 AM CDT Creatinine 6.36 (H) 0.67 - 12/24/2021 LABORATORY 1.17 mg/dL 7:38 AM CDT Calcium 10.3 (H) 8.8 - 10.2 12/24/2021 LABORATORY mg/dL 7:38 AM CDT Glucose 134 (H) 70 - 99 12/24/2021 LABORATORY mg/dL 7:38 AM CDT GFR Estimate 9 (L) >60 12/24/2021 LABORATORY mL/min/1.7 7:38 AM CDT 3m2 Comment: Effective March 09, 2021 eGF Rcr in adults is calculated using the 2020 CKD-EPI creatinine equation which includ es age and gender (Brigette et al., NEJM, DOI: 10.1056/BTJLef0720423) Specimen Anatomical Collection Method / Collection Time Recei annie Time (Source) Location / Volume Laterality Blood STRUCTURE OF RIGHT Venipuncture / 12/24/2021 6:30 100 09/2021 7:15 UPPER LIMB / Unknown AM CDT AM CDT Unknown Dallin Farah DO LAB - BLOOD ORDERABLES Performing Organization Address City/State/ZIP Code Phon [place] [id number] Care Lab [address] Lab (1st floor, no room number) (ABNORMAL) Glucose by meter (12/24/2021 4:36 AM CDT) P athologist Signature GLUCOSE BY 128 (H) 70 - 99 12/24/2021 LABORATORY METER POCT mg/dL 4:43 AM CDT POC Specimen (Source) Anatomical Collection Method Collection Time Re ceived Time Location / / Volume Laterality Blood, Capillary BLOOD SPECIMEN / 12/24/2021 4:36 09/2021 4:43 Unknown AM CDT AM CDT Dallin Farah DO LAB - BEAKER POCT Performing Organization Address City/[facility]/ZIP Code Phon e Number [place] [address] Care Lab [address] Lab (1st floor, no room number) (ABNORMAL) Troponin T, High Sensitivity (12/24/2021 2:05 AM CDT) Patholo gist Method Time Signature Troponin T, High 111 (HH) <=22 ng/L 12/24/2021 RH LABORATOR Y Sensitivity 2:53 AM CDT Specimen Anatomical Collection Method / Collection Time Recei annie Time (Source) Location / Volume Laterality Blood STRUCTURE OF RIGHT Venipuncture / 12/24/2021 2:05 0 09/2021 2:13 UPPER LIMB / Unknown AM CDT AM CDT Unknown Dallin Farah DO LAB - BLOOD ORDERABLES Performing Organization Address City/State/ZIP Code Phon [place] [id number] Care Lab [address] Lab (1st floor, no room number) (ABNORMAL) Symptomatic; Yes; 12/20/2021 Influenza A/B & SARS-CoV2 (COVID-19) Virus PCR Multiplex Nasopharyngeal (12/23/2021 10:53 PM CDT) [facility] Method Time Signature Influenza A Negative Negative 12/23/2021 [facility] PCR 11:43 PM CDT Influenza B Negative Negative 12/23/2021 [facility] PCR 11:43 PM CDT RSV PCR Positive (A) Negative 12/23/2021 [facility] 11:43 PM CDT SARS CoV2 PCR Negative Negative 12/23/2021 [facility] 11:43 PM CDT Comment: NEGATIVE: SARS-CoV-2 (COVID-19) RNA not detected, presumed negative. Specimen Anatomical Location / Collection Method Collection Ruslan e Received Time (Source) Laterality / Volume Swab NASOPHARYNGEAL Non-blood 12/23/2021 10:53 STRUCTURE / Unknown Collection / PM CDT 10:57 PM CDT Unknown Narrative [facility] - 12/23/2021 11:43 PM CDT Testing was performed using the Xpert Xpress CoV2/Flu/RSV Assay on the [employer] GeneXpert Instrument. This test should be ordered [...] management. This test was validated by the [facility]. These laboratories are certified under the Clinical Laboratory Improvement Amendments of 198 8 (CLIA-88) as qualified to perform high complexity laboratory testing. Nakita Pruitt MD LAB - MICRO GENERAL ORDERABL ES Performing Organization Address City/State/ZIP Code Phon [place] [address] [facility] Lab [address] Lab (1st floor, no room number) [...] CT CHEST PULMONARY EMBOLISM W CONTRAST LOCATION: [facility] DATE/TIME: 12/23/2021 9:50 PM INDICATION: Worsening dyspnea [...] CHEST PULMONARY EMBOLISM W CONT RAST LOCATION: [facility] DATE/TIME: 12/23/2021 9:50 PM INDICATION: Worsening dyspnea [...] CDT EXAM: XR CHEST 2 VIEWS LOCATION: [facility] DATE/TIME: 12/23/2021 8:06 PM INDICATION: sob COMPARISON: None. Procedure Note Higinio Melchor MD - 12/23/2021Formatt ing of this note might be different from the original. EXAM: XR CHEST 2 VIEWS LOCATION: [facility] DATE/TIME: 12/23/2021 8:06 PM INDICATION: sob COMPARISON: None. IMPRESSION: Status post median sternotom y and valve replacement. Heart size is enlarged. Prominence of central pulmonary vasculature without overt failure or lobar consolidation. No effusions. Calcified granulomas bilaterally. No acute bony abnormality. Nakita Pruitt MD IMG DIAGNOSTIC IMAGING ORDER VESTA (ABNORMAL) Nt probnp inpatient (BNP) (12/23/2021 7:51 PM CDT) [facility] [employer] Method Time Signature N terminal Pro >70,000 [...] STRUCTURE OF RIGHT Venipuncture / 12/23/2021 7:51 10/08/2021 7:56 UPPER LIMB / Unknown PM CDT PM CDT Unknown Nakita Pruitt MD LAB - BLOOD ORDERABLES Performing Organization Address City/State/ZIP Code Phon [place] [address] Care Lab [address] Lab (1st floor, no room number) (ABNORMAL) Troponin T, High Sensitivity (12/23/2021 7:51 PM CDT) [facility] Method Time Signature Troponin T, High 112 (HH) <=22 ng/L 12/23/2021 RH LABORATOR Y Sensitivity 9:58 PM CDT Specimen Anatomical Collection Method / Collection Time Recei annie Time (Source) Location / Volume Laterality Blood STRUCTURE OF RIGHT Venipuncture / 12/23/2021 7:51 10/0 08/2021 7:56 UPPER LIMB / Unknown PM CDT PM CDT Unknown Nakita Pruitt MD LAB - BLOOD ORDERABLES Performing Organization Address City/State/[place] [address] Care Lab [address] Lab (1st floor, no room number) Extra Red Top Tube (12/23/2021 7:51 PM CDT) athologist Signature Hold Specimen [facility] 12/23/2021 [facility] 9:05 PM CDT Specimen Anatomical Collection Method / Collection Time Recei annie Time (Source) Location / Volume Laterality Blood STRUCTURE OF RIGHT Venipuncture / 12/23/2021 7:51 10/0 08/2021 7:56 UPPER LIMB / Unknown PM CDT PM CDT Unknown Authorizing Provider Result Nelli Pruitt MD LAB - BLOOD ORDERABLES Performing Organization Address City/[facility]/ZIP [place] [address] Care Lab [address] Lab (1st floor, no room number) Extra Blue Top Tube (12/23/2021 7:51 PM CDT) athologist Signature Hold Specimen JI 12/23/2021 [facility] 9:05 PM CDT Specimen Anatomical Collection Method / Collection Time Recei annie Time (Source) Location / Volume Laterality Blood STRUCTURE OF RIGHT Venipuncture / 12/23/2021 7:51 10/0 08/2021 7:56 UPPER LIMB / Unknown PM CDT PM CDT Unknown Authorizing Provider Result Nelli Pruitt MD LAB - BLOOD ORDERABLES Performing Organization Address City/State/[place] [address] Care Lab [address] Lab (1st floor, no room number) (ABNORMAL) CBC with platelets and differential (12/23/2021 7:51 PM CDT) [facility] Method Time Signature WBC Count [...] Address City/State/ZIP Code Phon [place] [address] Care Lab [address] Lab (1st floor, no room number) (ABNORMAL) Comprehensive metabolic panel (12/23/2021 7:51 PM CDT) [facility] Method Time Signature Sodium 134 (L) 136 [...] Glucose 116 (H) 70 - 99 12/23/2021 [facility] mg/dL 8:18 PM CDT Alkaline 106 40 - 129 12/23/2021 [facility] Phosphatase U/L 8:18 PM CDT AST 36 10 - 50 12/23/2021 [facility] U/L 8:18 PM CDT ALT 17 10 - 50 12/23/2021 [facility] U/L 8:18 PM CDT Protein Total 7.9 6.4 - 8.3 12/23/2021 [facility] g/dL 8:18 PM CDT Albumin 3.9 3.5 - 5.2 12/23/2021 [facility] g/dL 8:18 PM CDT Bilirubin Total 0.8 <=1.2 12/23/2021 [facility] mg/dL 8:18 PM CDT GFR Estimate 10 (L) >60 12/23/2021 LABORATORY mL/min/1. 8:18 PM CDT 73m2 Comment: Effective March 09, 2021 eGF Rcr in adults is calculated using the 2020 CKD-EPI creatinine equation which includ es age and gender (Brigette et al., NEJ, DOI: 10.1056/NKWYxj2383035) Specimen Anatomical Collection Method / Collection Time Recei annie Time (Source) Location / Volume Laterality Blood STRUCTURE OF RIGHT Venipuncture / 12/23/2021 7:51 10/0 08/2021 7:56 UPPER LIMB / Unknown PM CDT PM CDT Unknown Nakita Pruitt MD LAB - BLOOD ORDERABLES Performing Organization Address City/State/ZIP Code Phon [place] [phone] Care Lab [address] Lab (1st floor, no room number) EKG 12 lead (12/23/2021 7:33 PM CDT) Component Value Ref Range Test Analysis Performed Pathologis t Method Time At Signature Systolic Blood mmHg RADIOLOGY Pressure RESULTS Diastolic Blood mmHg RADIOLOGY Pressure RESULTS Ventricular Rate 99 BPM RADIOLOGY RESULTS Atrial Rate 87 BPM RADIOLOGY RESULTS AZ Interval ms RADIOLOGY RESULTS QRS Duration 120 ms RADIOLOGY RESULTS QT 378 ms RADIOLOGY RESULTS QTc 485 ms RADIOLOGY RESULTS P Cascade degrees RADIOLOGY RESULTS R AXIS 134 degrees RADIOLOGY RESULTS T Cascade 8 degrees RADIOLOGY RESULTS Interpretation Atrial fibrillation [...] City/State/ZIP Code Phon e Number RADIOLOGY RESULTS documented in this encounter Visit Diagnoses Diagnosis RSV bronchitis - Primary Acute bronchitis Other hypervolemia NSTEMI (non-ST elevated myocardial infar ction) (H) Acute myocardial infarction, subendocard ial infarction, episode of care unspecified ESRD (end stage renal disease) on dialys is (H) End stage renal disease documented in this encounter Administered Medications Inactive Administered Medications - up to 3 most recent administrations Medication Order MAR Action Action Date Dose Rate Site 0.9% sodium chloride BOLUS New Bag 12/24/2021 5:04 PM CDT 250 mLs Intravenous, 250 mL, ONCE IN DIALYSIS/CRRT, On Mon12/24/21 at 1430, For 1 dose, For patient prime during dialysis, Dialysis 0.9% sodium chloride BOLUS New Bag 12/24/2021 5:03 PM CDT 300 mLs Hemodialysis Machine, 300 mL, ONCE, On Mon12/24/21 at 1430, For 1 dose, For Dialyzer Prime. (In Dialyzer), Dialysis 0.9% sodium chloride BOLUS Intravenous, 100-150 mL, EVERY 15 MIN PRN, Until hypot ensive symptoms resolve, Starting on Mon12/24/21 at 1417, For 10 doses, Up to 1000 mL maximum total dose. Give if needed to manage Systolic Blood Pressure as in dicated in Hemodialysis Single Treatment set up. Notify provider if patient bl ood pressure is not responsive with the bolus., Dialysis acetaminophen (TYLENOL) Suppository 650 mg 650 mg, Rectal, EVERY 6 HOURS PRN, mild pain, other, and adjunct with moderate or severe pain or per patient request, Star ting on Mon12/24/21 at 0026, Alternate with ibuprofen if ordered. Maximum acetaminop hen dose from all sources = 75 mg/kg/day not to exceed 4 grams/day. acetaminophen (TYLENOL) tablet 650 mg 650 mg, Oral, EVERY 6 HOURS PRN, mild pain, other, and adjunct with moderate or severe pain or per patient request, Star ting on Mon12/24/21 at 0026, Alternate with ibuprofen if ordered. Maximum acetaminop hen dose from all sources = 75 mg/kg/day not to exceed 4 grams/day. albumin human 25 % injection 50 mL 50 mL, Intravenous, EVERY 1 HOUR PRN, other, see admin istration instructions, Starting on Mon12/24/21 at 1417, FOR Sys tolic Blood Pressure less than 90 mmHg or for volume replacement DURING DIALYSIS R UN, Dialysis, Reason for Use: Symptomatic hypotension during hemodialysis albumin human 5 % injection 50-250 mL 50-250 mL, Intravenous, EVERY 1 HOUR PRN , other, see administration instructions, Starting on Mon12/24/21 at 1417, FOR Sys tolic Blood Pressure less than 90 mmHg or for volume replacement DURING DIALYSIS RUN, Dialysis, Reason for Use: Dialysis (hemodialysis and CRRT) prime if hypotension or large extracorporeal circuit albuterol (PROVENTIL) neb solution 2.5 m g Given 12/23/2021 9:15 PM CDT 2.5 mg 2.5 mg, Nebulization, ONCE, On Lori 12/23/21 at 2110, For 1 dose atorvastatin (LIPITOR) tablet 20 mg Given 12/25/2021 9:21 AM CDT 20 mg 20 mg, Oral, DAILY, First dose on Mon12/24/21 at 0800 Given 12/24/2021 10:17 AM CDT 20 mg azithromycin (ZITHROMAX) tablet 500 mg Given 12/24/2021 12:00 AM CDT 500 mg STAT, 500 mg, Oral, ONCE, On Lori 12/23/21 at 2330, For 1 dose, Indications: bronchitis, comorbidites benzonatate (TESSALON) capsule 100 mg Given 12/24/2021 12:00 AM CDT 100 mg 100 mg, Oral, ONCE, On Lori 12/23/21 at 2320, For 1 dose, Swallow whole. Do not chew, crush or break. benzonatate (TESSALON) capsule 100 mg Given 12/25/2021 3:15 AM CDT 100 mg 100 mg, Oral, 3 TIMES DAILY PRN, cough, Starting on Mon12/24/21 at 0026, Swallow whole. Do not chew, crush or break. fluticasone (FLONASE) 50 MCG/ACT spray 1 Given 12/25/2021 9:22 A M CDT 1 spray spray 1 spray, Nasal, DAILY, First dose on Mon12/24/21 at 0800 Given 12/24/2021 2:22 PM CDT 1 spray fluticasone-salmeterol (ADVAIR Given by Patient/Family 7:33 AM 2 puffs HFA) 115-21 MCG/ACT Inhaler 2 CDT puff 2 puff, Inhalation, EVERY 12 HOURS, First dose on Mon12/24/21 at 1130, Use patient's own supply. *Do not use more frequently than twice daily.* Rinse mouth after use. Check the dose counter on the inhaler to ensure there are doses remaining before administering. Given 12/24/2021 7:39 PM CDT 2 puffs Given 12/24/2021 11:52 AM CDT 2 puffs guaiFENesin (MUCINEX) 12 hr tablet 600 m g Given 12/25/2021 9:21 AM CDT 600 mg 600 mg, Oral, 2 TIMES DAILY, First dose on Mon12/24/21 at 0800, DO NOT CRUSH. Given 12/24/2021 7:50 PM CDT 600 mg Given 12/24/2021 10:17 AM CDT 600 mg guaiFENesin (ROBITUSSIN) 20 mg/mL solution Given 12/24/2021 10:13 PM CDT 10 mLs 10 mL 10 mL, Oral, EVERY 4 HOURS PRN, cough, Starting on Mon12/24/21 at 0026 Given 12/24/2021 2:53 AM CDT 10 mLs iopamidol (ISOVUE-370) solution 500 mL Given 12/23/2021 9:33 PM CDT 73 mLs 500 mL, Intravenous, ONCE, On Lori 12/23/21 at 2135, For 1 dose ipratropium - albuterol 0.5 mg/2.5 mg/3 mL Given 12/24/2021 11:3 2 PM CDT 3 mLs (DUONEB) neb solution 3 mL 3 mL, Nebulization, EVERY 4 HOURS PRN, wheezing, Starting on Mon12/24/21 at 0026 ipratropium - albuterol 0.5 mg/2.5 mg/3 mL Given 12/25/2021 2:10 PM CDT 3 mLs (DUONEB) neb solution 3 mL 3 mL, Nebulization, EVERY 6 HOURS RT, First dose on Mon12/24/21 at 1130 Given 12/25/2021 7:25 AM CDT 3 mLs Given 12/25/2021 1:34 AM CDT 3 mLs lidocaine 1 % 0.5 mL 0.5 mL, Intradermal, ONCE PRN, WITHIN 24 HOURS For loc al anesthesia at fistula/graft site, Starting on Mon12/24/21 at 1417, F or 1 dose, For local anesthesia at VENOUS fistula/graft site. Give once, if needed, at the dialysis treatment., Dialysis lidocaine 1 % 0.5 mL 0.5 mL, Intradermal, ONCE PRN, For local anesthesia at ARTERIAL fistula/graft site., Starting on Mon12/24/21 at 1417, For 1 dose, Give once, if needed, at the dialysis treatment., Dialysis melatonin tablet 1 mg Given 12/24/2021 2:53 AM CDT 1 mg 1 mg, Oral, AT BEDTIME PRN, sleep, Starting on Mon12/24/21 at 0026, Do not give unless at least 6 hours of uninterrupted sleep is expected. metoprolol succinate ER (TOPROL-XL) 24 hr Given 12/25/2021 9:21 AM CDT 12.5 mg half-tab 12.5 mg 12.5 mg, Oral, DAILY, First dose on Mon12/24/21 at 0800, DO NOT CRUSH. Tablet may be split in half along score line. ondansetron (ZOFRAN ODT) ODT tab 4 mg 4 mg, Oral, EVERY 6 HOURS PRN, nausea, v omiting, Starting on Mon12/24/21 at 0026, This is Step 1 of nausea and vomiting management. If n ausea not resolved in 15 minutes, go to Step 2 prochlorperazine ( COMPAZINE). With dry hands, peel back foil backing and gently remove tablet. Do not push oral disintegrating tablet through foil backing. Administer immediately on tongue and ora l disintegrating tablet dissolves in seconds, then swallow with saliva. Liquid not required. ondansetron (ZOFRAN) injection 4 mg Given 12/24/2021 8:40 AM CDT 4 mg 4 mg, Intravenous, EVERY 6 HOURS PRN, nausea, vomiting, Administer over 2-5 Minutes, Starting on Mon12/24/21 at 0026, Give IF patient unable to tolerate oral medication. This is Step 1 of nausea and vomiting management. If nausea not resolved in 15 minutes, go to Step 2 prochlorperazine (COMPAZINE). Irritant. oxymetazoline (AFRIN) 0.05 % spray 2 spr ay Given 12/24/2021 12:01 AM CDT 2 sprays 2 spray, Nasal, ONCE, On Lori 12/23/21 at 2355, For 1 dose, Use for more than 3 consecutive days may cause rebound vasodilation. pantoprazole (PROTONIX) EC tablet 40 mg Given 12/25/2021 9:22 AM CDT 40 mg 40 mg, Oral, EVERY MORNING BEFORE BREAKFAST, First dose on Mon12/24/21 at 0800, DO NOT CRUSH. Given 12/24/2021 10:17 AM CDT 40 mg senna-docusate (SENOKOT-S/PERICOLACE) 8. 6-50 MG per tablet 1 tablet 1 tablet, Oral, 2 TIMES DAILY PRN, const ipation, Starting on Mon12/24/21 at 0026, If no bowel movement in 24 hours, increa se to 2 tablets by mouth. IF more than 1 constipation PRN medication is ordered, administer step-shah as indicated, moving to the next step ONLY if prior step inef fective. Step 1: senna-docusate (SENOKOT-S; PERICOLACE) OR bisacodyl (DULCOLAX) EC t ablet Step 2: magnesium hydroxide (MILK OF MAGNESIA) OR polyethylene glycol (MIRALA X/GLYCOLAX) Step 3: bisacodyl (DULCOLAX) suppository Step 4: sodium phosphate (FLEET ENEMA) Hol d for loose stools. senna-docusate (SENOKOT-S/PERICOLACE) 8. 6-50 MG per tablet 2 tablet 2 tablet, Oral, 2 TIMES DAILY PRN, const ipation, Starting on Mon12/24/21 at 0026, IF more than 1 constipation PRN medication is ordered, administer step-shah as indicated, moving to the next step ONLY if prior step ineffective. Step 1: senna-docusate (SENOKOT-S; PERICOLACE) O R bisacodyl (DULCOLAX) EC tablet Step 2: magnesium hydroxide (MILK OF MAGNESIA) O R polyethylene glycol (MIRALAX/GLYCOLAX) Step 3: bisacodyl (DULCOLAX) suppository Step 4: sodiu m phosphate (FLEET ENEMA) Hold for loose stools. sodium chloride (PF) 0.9% PF flush 100 m L Given 12/23/2021 9:33 PM CDT 90 mLs 100 mL, Intravenous, ONCE, On Lori 12/23/21 at 2135, For 1 dose Stop Heparin 60 minutes before end of tr eatment CONTINUOUS PRN, Starting on Mon12/24/21 at 1417, Until 12/25/21 at 1813, Stop Heparin 60 minutes before end of treatment, Dialysis documented in this encounter Active and Recently Administered Medications Times are shown in CDT. Scheduled Medication Order 12/23/2021 12/24/2021 12/25/2021 0.9% sodium chloride BOLUS (COMPLETED) 1 704 (New Bag - Provider: Janett Mensah, OVI) Intravenous, 250 mL, ONCE IN DIALYSIS/CR RT, On Mon12/24/21 at 1430, For 1 dose, For patient prime during dialysis, Dialysis 0.9% sodium chloride BOLUS (COMPLETED) 1 703 (New Bag - Provider: Janett Mensah, OVI) Hemodialysis Machine, 300 mL, ONCE, On F 12/24/21 at 1430, For 1 dose, For Dialyzer Prime. (In Dialyzer), Dialysis albuterol (PROVENTIL) neb solution 2.5 mg (COMPLETED) 2114 (Given - Provider: Saroj Pozo) 2.5 mg, Nebulization, ONCE, On Lori 12/23/21 at 2110, For 1 dose atorvastatin (LIPITOR) tablet 20 mg 1017 (Given - Provider: Geovanna Zee, OVI) 0921 (Given - Provider: Gladys lane, OVI) 20 mg, Oral, DAILY, First dose on Mon12/24/21 at 0800 azithromycin (ZITHROMAX) tablet 500 mg (COMPLETED) 0000 (Given - Provider: Saroj Pozo) STAT, 500 mg, Oral, ONCE, On Mon12/23/21 at 2330, For 1 dose, Indications: bronchitis, comorbidites benzonatate (TESSALON) capsule 100 mg (COMPLETED) 0000 (Given - Provider: Saroj Pozo) 100 mg, Oral, ONCE, On Mon12/23/21 at 23 20, For 1 dose, Swallow whole. Do not chew, crush or break. fluticasone (FLONASE) 50 MCG/ACT spray 1 spray 1422 (Given - Provider: Geovanna Zee RN) 0922 (Given - Provider: Gladys lane, OVI) 1 spray, Nasal, DAILY, First dose on Mon12/24/21 at 0800 fluticasone-salmeterol (ADVAIR HFA) 115-21 MCG/ACT Inhaler 2 puff 1152 (Given - Provider: Chiara Emery, RT)1939 (Given - Provider: RT Kemar) 0733 (Given by Patient/Family - Provider: RT Mohan) 2 puff, Inhalation, EVERY 12 HOURS, Firs t dose on Mon12/24/21 at 1130, Use patient's own supply. *Do not use more frequently than twice daily.* Rinse mouth after use. Check the dose counter on the inhal er to ensure there are doses remaining before administering. guaiFENesin (MUCINEX) 12 hr tablet 600 mg 1017 (Given - Provider: Geovanna Zee RN)1950 (Given - Provider: Jeff Martinez RN) 0921 (Given - Provider: Gladys Campuzano RN) 600 mg, Oral, 2 TIMES DAILY, First dose on Mon12/24/21 at 0800, DO NOT CRUSH. iopamidol (ISOVUE-370) solution 500 mL (COMPLETED) 213 3 (Given - Provider: Michael Valenzuela) 500 mL, Intravenous, ONCE, On Mon12/23/21 at 2135, For 1 dose ipratropium - albuterol 0.5 mg/2.5 mg/3 mL (DUONEB) neb solu tion 3 mL 1152 (Given - Provider: Chiara Emery, RT)1502 (Not Given - Provider: Chiara Emery, RT - Reason: Other - Comment: Pt receiving dialysis. Pt stated breathing was okay, will wait until later.)1934 (Given - Provider: Marylou Chaudhari, RT) 0134 (Given - Provider: Marylou Chaudhari RT )0725 (Given - Provider: Lux Kelsey, RT)1410 (Given - Provider: Lux Kelsey, RT) 3 mL, Nebulization, EVERY 6 HOURS RT, First dose on Mon12/24/21 at 1130 metoprolol succinate ER (TOPROL-XL) 24 hr half-tab 12.5 mg 1039 (Not Given - Provider: Geovanna Zee RN - Reason: Other - Comment: low BP, scheduled for dialysis) 0921 (Given - Provider: Gladys lane, OVI) 12.5 mg, Oral, DAILY, First dose on Mon12/24/21 at 0800, DO NOT CRUSH. Tablet may be split in half along score line. No heparin via hemodialysis machine 1430 (Canceled Entry - Provider: Orders Generic Provider - Comment: Automatically canceled at discontinue of medication order) ONCE, 1 dose, On Mon12/24/21 at 1430, No rmal saline flushes may be used to maintain patency of circuit., Dialysis oxymetazoline (AFRIN) 0.05 % spray 2 spray (COMPLETED) 0001 (Given - Provider: Saroj Pozo) 2 spray, Nasal, ONCE, On Lori 12/23/21 at 2355, For 1 dose, Use for more than 3 consecutive days may cause rebound vasodilation. pantoprazole (PROTONIX) EC tablet 40 mg 1017 (Given - Provider: Geovanna Zee RN) 09 (Given - Provider: Gladys lane, OVI) 40 mg, Oral, EVERY MORNING BEFORE BREAKF AST, First dose on Mon12/24/21 at 0800, DO NOT CRUSH. sodium chloride (PF) 0.9% PF flush 100 mL (COMPLETED) 2132 (Given - Provider: Michael Valenzuela) 100 mL, Intravenous, ONCE, On Lori 12/23/21 at 2135, For 1 dose PRN Medication Order 12/23/2021 12/24/2021 12/25/2021 0.9% sodium chloride BOLUS Intravenous, 100-150 mL, EVERY 15 MIN AZ N, Until hypotensive symptoms resolve, Starting on Mon12/24/21 at 1417, For 10 doses, Up to 1000 mL maximum total dose. Give if needed to manage Systolic Blood Pr essure as indicated in Hemodialysis Sing le Treatment set up. Notify provider if patient blood pressure is not responsive with the bolus., Dialysis acetaminophen (TYLENOL) Suppository 650 mg(Linked Group 1) 650 mg, Rectal, EVERY 6 HOURS PRN, mild pain, other, and adjunct with moderate or severe pain or per patient request, Starting on Mon12/24/21 at 0026, Alternate with ibuprofen if ordered. Maximum acetam inophen dose from all sources = 75 mg/kg/day not to exceed 4 gra ms/day. acetaminophen (TYLENOL) tablet 650 mg(Linked Group 1) 650 mg, Oral, EVERY 6 HOURS PRN, mild pa in, other, and adjunct with moderate or severe pain or per patient request, Starting on Mon12/24/21 at 0026, Alternate with ibuprofen if ordered. Maximum acetamin ophen dose from all sources = 75 mg/kg/day not to exceed 4 grams /day. albumin human 25 % injection 50 mL 50 mL, Intravenous, EVERY 1 HOUR PRN, ot her, see administration instructions, Starting on Mon12/24/21 at 1417, FOR Systolic Blood Pressure less than 90 mmHg or for volume replacement DURING DIALYSIS RUN , Dialysis, Reason for Use: Symptomatic hypotension during hemod ialysis albumin human 5 % injection 50-250 mL 50-250 mL, Intravenous, EVERY 1 HOUR PRN , other, see administration instructions, Starting on Mon12/24/21 at 1417, FOR Systolic Blood Pressure less than 90 mmHg or for volume replacement DURING DIALYSIS RUN, Dialysis, Reason for Use: Dialysis (hemodialysis and CRRT) prime if hypotension or large extracorporeal circuit benzonatate (TESSALON) capsule 100 mg 0315 (Given - Provider: Jeff Martinez RN) 100 mg, Oral, 3 TIMES DAILY PRN, cough, Starting on Mon12/24/21 at 0026, Swallow whole. Do not chew, crush or break. bisacodyl (DULCOLAX) suppository 10 mg 10 mg, Rectal, DAILY PRN, constipation, Starting on Mon12/24/21 at 0026, IF more than 1 constipation PRN medication is ordered, administer step-shah as indicated, moving to the next step ONLY if prior s tep ineffective. Step 1: senna-docusate (SENOKOT-S; PERICOLACE) OR bisacodyl (DULCOLAX) EC tablet Step 2: magnesium hydroxide (MILK OF MAGNESIA) OR polyethylene glycol (MIRALAX/GLYCOLAX) Step 3: bisacod yl (DULCOLAX) suppository Step 4: sodium phosphate (FLEET ENEMA) Hold for loose stools. guaiFENesin (ROBITUSSIN) 20 mg/mL solution 10 mL 0253 (Given - Provider: Layne Hernandez RN)2213 (Given - Provider: Jeff Martinez, OVI) 10 mL, Oral, EVERY 4 HOURS PRN, cough, Starting on Mon12/24/21 a t 0026 ipratropium - albuterol 0.5 mg/2.5 mg/3 mL (DUONEB) neb solu tion 3 mL 2332 (Given - Provider: Jeff Martinez, OVI) 3 mL, Nebulization, EVERY 4 HOURS PRN, w heezing, Starting on Mon12/24/21 at 0026 lidocaine 1 % 0.5 mL 0.5 mL, Intradermal, ONCE PRN, WITHIN 24 HOURS For local anesthesia at fistula/graft site, Starting on Mon12/24/21 at 1417, For 1 dose, For local anesthesia at VENOUS fistula/graft site. Give once, if needed, at the dialysis treatment., Dialysis lidocaine 1 % 0.5 mL 0.5 mL, Intradermal, ONCE PRN, For local anesthesia at ARTERIAL fistula/graft site., Starting on Mon12/24/21 at 1417, For 1 dose, Give once, if needed, at the dialysis treatment., Dialysis melatonin tablet 1 mg 0253 (Given - Provider: Antonio Hernandez RN) 1 mg, Oral, AT BEDTIME PRN, sleep, Start ing on Mon12/24/21 at 0026, Do not give unless at least 6 hours of uninterrupted sleep is expected. ondansetron (ZOFRAN ODT) ODT tab 4 mg(Linked Group 2) 0840 (See Alternative - Provider: Geovanna Zee RN) 4 mg, Oral, EVERY 6 HOURS PRN, nausea, v omiting, Starting on Mon12/24/21 at 0026, This is Step 1 of nausea and vomiting management. If nausea not resolved in 15 minutes, go to Step 2 prochlorperazine (C OMPAZINE). With dry hands, peel back foi l backing and gently remove tablet. Do not push oral disintegrating tablet through foil backing. Administer immediately on tongue and oral disintegrating tablet d issolves in seconds, then swallow with saliva. Liquid not requir ed. ondansetron (ZOFRAN) injection 4 mg(Linked Group 2) 0840 (Given - Provider: Geovanna Zee RN) 4 mg, Intravenous, EVERY 6 HOURS PRN, na usea, vomiting, Administer over 2-5 Minutes, Starting on Mon12/24/21 at 0026, Give IF patient unable to tolerate oral medication. This is Step 1 of nausea and vom iting management. If nausea not resolved in 15 minutes, go to Step 2 prochlorperazine (COMPAZINE). Irritant. polyethylene glycol (MIRALAX) Packet 17 g 17 g, Oral, DAILY PRN, constipation, Sta rting on Mon12/24/21 at 0026, IF more than 1 constipation PRN medication is ordered, administer step-shah as indicated, moving to the next step ONLY if prior step ineffective. Step 1: senna-docusate (SE NOKOT-S; PERICOLACE) OR bisacodyl (DULCOLAX) EC tablet Step 2: magnesium hydroxide (MILK OF MAGNESIA) OR polyethylene glycol (MIRALAX/GLYCOLAX) Step 3: bisacodyl (DULCOLAX) suppository Step 4: sodium ph osphate (FLEET ENEMA) 1 Packet = 17 grams. Mix each gram with at least 1/2 ounce (15 mL) of water - 8 ounces for 17 g dose, 4 ounces for 8.5 g dose, 2 ounces for 4 g dose. Follow with the same volume of water. Hold for loose stools unless being administered as part of a bowel prep regimen or bowel clean out. senna-docusate (SENOKOT-S/PERICOLACE) 8. 6-50 MG per tablet 1 tablet(Linked Group 3) 1 tablet, Oral, 2 TIMES DAILY PRN, const ipation, Starting on Mon12/24/21 at 0026, If no bowel movement in 24 hours, increase to 2 tablets by mouth. IF more than 1 constipation PRN medication is ordered, administer step-shah as indicated, movi ng to the next step ONLY if prior step ineffective. Step 1: senna-docusate (SENOKOT-S; PERICOLACE) OR bisacodyl (DULCOLAX) EC tablet Step 2: magnesium hydroxide ( MILK OF MAGNESIA) OR polyethylene glycol (MIRALAX/GLYCOLAX) Step 3: bisacodyl (DULCOLAX) suppository Step 4: sodium phosphate (FLEET ENEMA) Hold for loose stools. senna-docusate (SENOKOT-S/PERICOLACE) 8. 6-50 MG per tablet 2 tablet(Linked Group 3) 2 tablet, Oral, 2 TIMES DAILY PRN, const ipation, Starting on Mon12/24/21 at 0026, IF more than 1 constipation PRN medication is ordered, administer step- shah as indicated, moving to the next step ONLY i f prior step ineffective. Step 1: senna- docusate (SENOKOT-S; PERICOLACE) OR bisacodyl (DULCOLAX) EC tablet Step 2: magnesium hydroxide (MILK OF MAGNESIA) OR polyethylene glycol (MIRALAX/GLYCOLAX) Step 3 : bisacodyl (DULCOLAX) suppository Step 4: sodium phosphate (FLEET ENEMA) Hold for loose stools. Stop Heparin 60 minutes before end of treatment CONTINUOUS PRN, Starting on Mon12/24/21 at 1417, Until 12/25/21 at 1813, Stop Heparin 60 minutes before end of treatment, Dialysis Linked Groups Order Group 1: acetaminophen (TYLENOL) tablet 650 mgJump to med 650 mg, Oral, EVERY 6 HOURS PRN, mild pa in, other, and adjunct with moderate or severe pain or per patient request, Starting on Mon12/24/21 at 0026
Alternate with ibuprofen if ordered.&nbsp ;Maximum acetaminophen dose from all romario rces = 75 mg/kg/day not to exceed 4 grams/day.
Or acetaminophen (TYLENOL) Suppository 650 mgJump to med 650 mg, Rectal, EVERY 6 HOURS PRN, mild pain, other, and adjunct with moderate or severe pain or per patient request, Starting on Mon12/24/21 at 0026
Alternate with ibuprofen if ordered.&nb sp;Maximum acetaminophen dose from all s ources = 75 mg/kg/day not to exceed 4 grams/day.
Group 2: ondansetron (ZOFRAN ODT) ODT tab 4 mgJump to med 4 mg, Oral, EVERY 6 HOURS PRN, nausea, v omiting, Starting on Mon12/24/21 at 0026
This is Step 1 of nausea and vomiting management. If nausea not resolved in 15 minutes, go to Step 2 prochlorperazine (COMPAZINE).&nb sp;With dry hands, peel back foil backing and gently remove tablet. Do not push oral disintegrating tablet through foil backing. Administer immediately on ton lane and oral disintegrating tablet disso lves in seconds, then swallow with saliva. Liquid not required.
Or ondansetron (ZOFRAN) injection 4 mgJump to med 4 mg, Intravenous, EVERY 6 HOURS PRN, na usea, vomiting, Administer over 2-5 Minutes, Starting on Mon12/24/21 at 0026
Give IF patient unable to tolerate oral medication. This is Step 1 of nausea and vomiting management. If na usea not resolved in 15 minutes, go to Step 2 prochlorperazine (COMPAZINE). Irritant.
Group 3: senna-docusate (SENOKOT-S/PERICOLACE) 8.6-50 MG per tablet 1 tabletJump to med 1 tablet, Oral, 2 TIMES DAILY PRN, const ipation, Starting on Mon12/24/21 at 0026
If no bowel movement in 24 hours, increase to 2 tablets by mouth. IF more than 1 constipation PRN medic ation is ordered, administer step-shah a s indicated, moving to the next step ONLY if prior step ineffective. Step 1: senna-docusate (SENOKOT-S; PERICOLACE) OR bisacodyl (DULCOLAX) EC tablet&amp ;nbsp;Step 2: magnesium hydroxide (MILK OF MAGNESIA) OR polyethylene glycol (MIRALAX/GLYCOLAX) Step 3: bisacodyl (DULCOLAX) suppository Step 4: sodium phosphate (FLEET ENEMA) Hold for loose stools.
Or senna-docusate (SENOKOT-S/PERICOLACE) 8.6-50 MG per tablet 2 tabletJump to med 2 tablet, Oral, 2 TIMES DAILY PRN, const ipation, Starting on Mon12/24/21 at 0026
IF more than 1 constipation PRN medication is ordered, administer step- shah as indicated, moving to the next steve p ONLY if prior step ineffective. S tep 1: senna-docusate (SENOKOT-S; PERICOLACE) OR bisacodyl (DULCOLAX) EC tablet Step 2: magnesium hydroxide (MILK OF MAGNESIA) OR polyethylene glycol (MIRALAX/GLYCOLAX) Step 3: bisacod yl (DULCOLAX) suppository Step 4: sodium phosphate (FLEET ENEMA) Hold for loose stools.
documented in this encounter Additional Health Concerns Infection Onset Date Last Indicated Resolved Time Rule Out COVID-19 12/23/2021 12/23/2021 12/23/2021 11: 43 PM CDT RSV 12/23/2021 12/23/2021 12/30/2021 11:41 PM CDT documented as of this encounter Care Teams Leather Shaver Relationship Specialty Start Date End Date Liban Leos PCP - General Family Medicine 10/08/21 [address] [place] [address] Ernie Pompa MD MD Nephrology 10/08/21 [address] [place] [address] documented as of this encounter
--- OUTSIDE RECORDS SUMMARY | 2022-01-04 06:41 | XMS_ITS | Encounter Summary ---
:1945 Author Organization [facility] Address [address] [place] [address] Care Team Providers Name Role Phone Liban Leos Primary Care Provider Ernie Pompa MD Unavailable Encounter Details Date Type Department Care Team Description 12/23/2021 Travel Social History Tobacco Use Types Packs/Day [...] Diagnoses Not on filedocumented in this encounter Additional Health Concerns Infection Onset Date Last Indicated Resolved Time Rule Out COVID-19 12/23/2021 12/23/2021 12/23/2021 11: 43 PM CDT RSV 12/23/2021 12/23/2021 12/30/2021 11:41 PM CDT documented as of this encounter Care Teams Behavioral Health Rn Relationship Specialty Start Date End Date Liban Leos PCP - General Family Medicine 10/08/21 [address] [place], [place] [phone] Ernie Pompa MD MD Nephrology 10/08/21 [address] [place] [address] documented as of this encounter
--- OUTSIDE RECORDS SUMMARY | 2022-01-04 06:42 | XMS_ITS | Encounter Summary ---
:1945 Author Organization [facility] Address [address] [place] [address] Care Team Providers Name Role Phone Unavailable Primary Care Provider Unavailable Encounter Details Date Type Department Care Team Description 11/24/2021 Orders Only [facility] Ernie Guzmán MD [phone] [place] [address] [place], [place] [phone] (Wo rk) Social History Tobacco Use [...] LAB BLOOD ORDERABLES Performing Organization Address [facility] Phon e Number APS SPECTRA [facility] POST CHEMISTRY (11/24/2021) athologist Signature BUN Post 13 6 - 19 APS SPECTRA Dialysis mg/dL [facility] Specimen (Source) Anatomical Collection Method Collection Time Re ceived Time Location / / Volume Laterality 11/24/2021 11/26/2021 7:00 AM CDT Narrative APS SPECTRA [facility] - 11/26/2021 Unless otherwise specified, test(s) performed at: [facility], [address] [place] [address], [place] [address] OPERATIONS MANAGER ASSISTANT: Alhaji Noguera M.D., Ph.D For any questions, please call customer service at FREQUENCY:MONTHLY Resulting Agency Comment Specimen source: Plasma Ernie Pompa MD LAB BLOOD ORDERABLES Performing Organization Address City/[facility]/ZIP Code Phon e Number APS SPECTRA [facility] (ABNORMAL) Spectrae Chemistry (11/24/2021) [facility] Time Signature BUN 48 (H) [...] 11/26/2021 Unless otherwise specified, test(s) performed at: [facility], [address] [place] [address], [place] [address] OPERATIONS MANAGER ASSISTANT: Alhaji Noguera M.D., Ph.D For any questions, [...] 11/26/2021 Unless otherwise specified, test(s) performed at: [facility], [address] [place] [address], [place] [address] OPERATIONS MANAGER ASSISTANT: Alhaji Noguera M.D., Ph.D For any questions, please call customer service at FREQUENCY:MONTHLY Resulting Agency Comment Specimen source: Blood Ernie Pompa MD LAB BLOOD ORDERABLES Performing Organization Address City/[facility] Code Phon e Number [...] 11/26/2021 Unless otherwise specified, test(s) performed at: [facility], [address] [place] [address] [place] [address] OPERATIONS MANAGER ASSISTANT: Alhaji Noguera M.D., Ph.D For any questions, please call customer service at FREQUENCY:MONTHLY Resulting Agency Comment Specimen source: Plasma Ernie Pompa MD LAB BLOOD ORDERABLES Performing Organization Address City/State/ZIP Code Phon e Number APS SPECTRA [facility] documented in this encounter Visit Diagnoses Not on filedocumented in this encounter
--- OUTSIDE RECORDS SUMMARY | 2022-01-04 06:42 | XMS_ITS | Encounter Summary ---
:1945 Author Organization [facility] Address [address] [place] [address] Care Team Providers Name Role Phone Unavailable Primary Care Provider Unavailable Encounter Details Date Type Department Care Team Description 11/03/2021 Orders Only [facility] Ernie Guzmán MD [phone] [place] [address] [place], [place] [phone] (Wo rk) Social History Tobacco Use [...] 11/04/2021 Unless otherwise specified, test(s) performed at: [facility], [address] [place] [address], [place] [address] SENIOR ADVISOR: Alhaji Noguera M.D., Ph.D For any questions, please call customer service at FREQUENCY:OTHER Resulting Agency Comment Specimen source: Blood Ernie Pompa MD LAB BLOOD ORDERABLES Performing Organization Address City/State/ZIP Code Phon e Number APS SPECTRA [facility] documented in this encounter Visit Diagnoses Not on filedocumented in this encounter
--- OUTSIDE RECORDS SUMMARY | 2022-01-04 06:42 | XMS_ITS | Encounter Summary ---
:1945 Author Organization [facility] Address [address] [place] [address] Care Team Providers Name Role Phone Liban Leos Primary Care Provider Ernie Pompa MD Unavailable Encounter Details Date Type Department Care Team Description 10/08/2021 Travel Social History Tobacco Use Types Packs/Day Years Used Date Smoking Tobacco: Never Assessed Sex Assigned at Date Recorded [...] on filedocumented in this encounter Care Teams Tractor Trailer Moving Van Driver Relationship Specialty Start Date End Date Liban Leos PCP - General Family Medicine 10/08/21 [address] [place] [address] Ernie Pompa MD MD Nephrology 10/08/21 [address] [place] [address] documented as of this encounter
--- OUTSIDE RECORDS SUMMARY | 2022-01-04 06:42 | XMS_ITS | Encounter Summary ---
:1945 Author Organization [facility] Address [address] [place] [address] Care Team Providers Name Role Phone Unavailable Primary Care Provider Unavailable Encounter Details Date Type Department Care Team Description 12/08/2021 Treatment [facility] Ernie Guzmán MD [address] [place] [address] [place], [place] [phone] (Wo rk) Social History Tobacco Use Types Packs/Day Years Used Date Smoking Tobacco: Unknown Comments: Smoking History Info:Patient n ot screened Sex Assigned at Date Recorded Not on file documented as of this encounter Miscellaneous Notes Dialysis Note - Ernie Pompa MD - 12/08/2021 10:43 AM CDT Date: Dec 08, 2021 Patient Name: Shaun Ocampo : 1945 Chart #: [id number] Sex: M This patient was personally seen [...] AM ) BP (sit): 103/46 AP(-) / ETHICAL HACKER: 192/153 Pulse: 72 Chairside data as of [...] Values 08/27/2021 05/28/2021 04/23/2021 Access Flow [id number] Treatment Medication Orders Medication Sig Start Date [...] mcg IVP Every 2 weeks 10/27/2021 10/26/2022 TOOL REPAIRER BENCH: Ernie Pompa MD LOCATION: [phone] SCHEDULE: -- 2nd Shift ACCESS: EDW: kg. [...] after extra UF run last week at [place]. BP adequate, challengingEDW today. His breathing is improved. Also went to [facility] care clinic at [facility] and they dressedwounds and he has [...] and do periodic extra UF treatments at [place] rather than risk more hypotension post-tx with use of midodrine and additional UF during treatments. He has fistulagram last week, went well and access working well since. 08/11: Continues to have problems with fluid gains. we have spent considerable time discussing this, he is trying to work on this but can't seem to avoid large gains. Will go to [place] for UF tomorrow, needs extra treatments every 2 weeks it looks like to maintain EDW. He does get SOB when >5K over dry weight in particular. 07/21/21: Continues to struggle with fluid gains, extra UF run scheduled tomorrow at [place]. He does feel more SOB when fluid overloaded. No new symptoms otherwise, he is enjoying the nicer weather which allows him to do more activity and not sit at home and drink fluids which he thinks will help with IDWG's. 07/14/21: Continues to have high gains, unfortunately [place] without staff to open tomorrow for extra [...] improving. Fluid gains continue to be high, [place] not open on this week, says he will do his best withlimiting salt/fluid. HE does feel SOB with exertion with extra fluid on, no orthopnea. 05/26/21: Has SOB when >5 Kg over dry weight, extra run last week at [place] helped. Trying his best with fluid restriction. [...] extra run and we discussed going to [place] tomorrow for UF only run and he [...] again today, may need extra run at [place] if can't get down over next week. 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 06/10: Doing well overall, no new complaints, [...] Went to Urgent care -> ER in [place] yesterday,CT with R hydro but no obstructive [...] had infiltration last week, dialyzed at [facility] on Sat and went well, access ok [...] (09/22/21) Vascular Access Assessment: Type of access: [id number] Surgeon - Lary ANW 08/2021: fistulagram at [facility] with angioplasty of [...]
--- OUTSIDE RECORDS SUMMARY | 2022-01-04 06:42 | XMS_ITS | Encounter Summary ---
:1945 Author Organization [facility] Address [address] [place] [address] Care Team Providers Name Role Phone Unavailable Primary Care Provider Unavailable Encounter Details Date Type Department Care Team Description 12/08/2021 Orders Only [facility] Ernie Guzmán MD [phone] [place] [address] [place], [place] [phone] (Wo rk) Social History Tobacco Use [...] 12/09/2021 Unless otherwise specified, test(s) performed at: [facility], [address] [place] [address], [place] [address] OPENER TENDER: Alhaji Noguera M.D., Ph.D For any questions, please call customer service at FREQUENCY:OTHER Resulting Agency Comment Specimen source: Blood Ernie Pompa MD LAB BLOOD ORDERABLES Performing Organization Address City/State/ZIP Code Phon e Number APS SPECTRA [facility] documented in this encounter Visit Diagnoses Not on filedocumented in this encounter
--- OUTSIDE RECORDS SUMMARY | 2022-01-04 06:42 | XMS_ITS | Encounter Summary ---
:1945 Author Organization [facility] Address [address] [place] [address] Care Team Providers Name Role Phone Unavailable Primary Care Provider Unavailable Encounter Details Date Type Department Care Team Description 11/10/2021 [facility] Only [facility] O f Ernie Guzmán MD [phone] [place] [address] [place], [place] [phone] (Wo rk) Social History Tobacco Use [...] 11/11/2021 Unless otherwise specified, test(s) performed at: [facility], [address] [place] [address], [place] [address] TOBACCO BALER: Alhaji Noguera M.D., Ph.D For any questions, please call customer service at FREQUENCY:OTHER Resulting Agency Comment Specimen source: Blood Ernie Pompa MD LAB BLOOD ORDERABLES Performing Organization Address City/State/ZIP Code Phon e Number [facility] documented in this encounter Visit Diagnoses Not on filedocumented in this encounter
--- OUTSIDE RECORDS SUMMARY | 2022-01-04 06:42 | XMS_ITS | Encounter Summary ---
:1945 Author Organization [facility] Address [address] [place] [address] Care Team Providers Name Role Phone Unavailable Primary Care Provider Unavailable Encounter Details Date Type Department Care Team Description 12/22/2021 [facility] Only [facility] O f Ernie Guzmán MD [phone] [place] [address] [place], [place] [phone] (Wo rk) Social History Tobacco Use Types Packs/Day Years Used Date Smoking Tobacco: Unknown Comments: Smoking History Info:Patient n ot screened Sex Assigned at Date Recorded Not on file documented as of this encounter Plan of Treatment Not on filedocumented as of this encounter Procedures Procedure Name Priority Date/Time Associated Diagnosis Comme nts IMMUNO CHEMISTRY Routine 12/22/2021 Results for this procedure are in the resu lts section. HEMATOLOGY Routine 12/22/2021 Results for thi s procedure are in the resu lts section. CHEMISTRY Routine 12/22/2021 Results for thi s procedure are in the resu lts section. CHEMISTRY Routine 12/22/2021 Results for thi s procedure are in the resu lts section. documented in this encounter Results IMMUNO CHEMISTRY (12/22/2021) P athologist Signature Hep B Surface Negative Negative [facility] Ag [facility] Specimen (Source) Anatomical Collection Method Collection Time Re ceived Time Location / / Volume Laterality 12/22/2021 12/23/2021 10:5 6 AM CDT Resulting Agency Comment Specimen source: Plasma Ernie Pompa MD LAB BLOOD ORDERABLES Performing Organization Address City/State/ZIP Code Phon e Number [facility] (ABNORMAL) Spectrae Chemistry (12/22/2021) P athologist Signature PTH 451 (H) 16 - 80 [facility] pg/mL [facility] Specimen (Source) Anatomical Collection Method Collection Time Re ceived Time Location / / Volume Laterality 12/22/2021 12/23/2021 10:5 6 AM CDT Narrative [facility] - 12/23/2021 Unless otherwise specified, test(s) performed at: [facility], [address] [place] [address], [place] [address] BURGLAR ALARM ASSEMBLER: Alhaji Noguera M.D., Ph.D For any questions, please call customer service at FREQUENCY:MONTHLY Resulting Agency Comment Specimen source: Plasma Ernie Pompa MD LAB BLOOD ORDERABLES Performing Organization Address City/State/ZIP Code Phon e Number [facility] (ABNORMAL) Spectrae Chemistry (12/22/2021) Patholo gist Method Time Signature BUN 51 (H) 6 - 19 [facility] mg/dL [facility] Creatinine 6.07 (H) 0.60 - [facility] 1.30 mg/dL [facility] BUN/Creatinine 8.4 (L) 10.0 - [facility] Ratio 20.0 [facility] Sodium 133 (L) 136 - 145 [facility] mEq/L [facility] Potassium 5.8 (H) 3.5 - 5.1 [facility] mEq/L [facility] Chloride 96 96 - 108 [facility] mEq/L [facility] Bicarbonate 24 20 - 31 [facility] (CO2) mEq/L [facility] Comment: Please note change in reference range. Calcium 10.2 8.7 - 10.4 mg/dL [facility]PS [facility] Comment: Please note change in reference range. Custom Exception Corrected Calcium 10.4 8.7 - 10.4 mg/dL APS S PECTRA [facility] Comment: Corrected Calcium is not equivalent to m easured Ionized Calcium. Phosphorus 5.5 (H) 2.6 - 4.5 mg/dL [facility]PS SPECT[facility] Calcium Phosphorus Product 56 (H) 0 - 54 [facility] Calcium Phosporus Product, Cor 57 (H) 0 - 54 [facility] Alkaline Phosphatase 121 40 - 129 U/L APS SP ECTRA [facility] Total Protein 7.1 6.0 - 8.5 g/dL [facility] Albumin 3.8 3.5 - 5.2 g/dL [facility] [place] Globulin, Total 3.3 2.0 - 4.0 g/dL APS SPECT RA [facility] A/G Ratio 1.2 1.0 - 2.0 [facility] Magnesium 2.0 1.6 - 2.6 mg/dL [facility] Ferritin 630 (H) 22 - 322 ng/mL [facility] [place] Iron 46 45 - 160 mcg/dL [facility] UIBC 155 155 - 355 mcg/dL [facility]PS SPECT[facility] TIBC 201 185 - 515 mcg/dL APS SPECT[facility] Iron Saturation (TSat) 23 20 - 55 % APS SPE CTRA [facility] Specimen (Source) Anatomical Collection Method Collection Time Re ceived Time Location / / Volume Laterality 12/22/2021 12/23/2021 11:2 1 AM CDT Narrative [facility] - 12/23/2021 Unless otherwise specified, test(s) performed at: [facility], [address] [place] [address], [place] [address] BURGLAR ALARM ASSEMBLER: Alhaji Noguera M.D., Ph.D For any questions, please call customer service at FREQUENCY:MONTHLY Resulting Agency Comment Specimen source: Serum Ernie Pompa MD LAB BLOOD ORDERABLES Performing Organization Address City/State/ZIP Code Phon e Number [facility] (ABNORMAL) HEMATOLOGY (12/22/2021) Analysis Performed At Patho logist Time Signature WBC 6.23 4.80 - [facility]PS SPECTRA 10.80 [facility] 1000/mcL RBC 3.51 (L) 4.70 - [facility]PS [facility]PECTRA 6.10 [facility] mill/mcL Hemoglobin 10.9 (L) 14.0 - [facility] 18.0 g/dL [facility] Hemoglobin x 3 32.7 (L) 42.0 - [facility] 54.0 % [facility] Hematocrit 34.7 (L) 42.0 - [facility]PS [facility]PECT[facility] 52.0 % [facility] MCV 99 80 - 100 [facility] fl [facility] MCH 31.0 27.0 - [facility]PS [facility] 31.0 pg [facility] MCHC 31.3 30.0 - [facility]PS [facility]RA 36.0 g/dL [facility] RDW 17.1 (H) 11.5 - [facility]PS [facility] 14.5 % [facility] Platelets 130 130 - 400 [facility] 1000/mcL [facility] Specimen (Source) Anatomical Collection Method Collection Time Re ceived Time Location / / Volume Laterality 12/22/2021 12/23/2021 5:22 AM CDT Narrative [facility] - 12/23/2021 Unless otherwise specified, test(s) performed at: [facility], [address] [place] [address], [place] [address] BURGLAR ALARM ASSEMBLER: Alhaji Noguera M.D., Ph.D For any questions, please call customer service at FREQUENCY:MONTHLY Resulting Agency Comment Specimen source: Blood Ernie Pompa MD LAB BLOOD ORDERABLES Performing Organization Address City/State/ZIP Code Phon e Number [facility] documented in this encounter Visit Diagnoses Not on filedocumented in this encounter
--- OUTSIDE RECORDS SUMMARY | 2022-01-04 06:42 | XMS_ITS | Encounter Summary ---
:1945 Author Organization [facility] Address [address] [place] [address] Care Team Providers Name Role Phone Unavailable Primary Care Provider Unavailable Encounter Details Date Type Department Care Team Description 04/07/2019 Records - [facility] GERIATRIC SERVICES Laboratory OF [place] [address] [place], [place] [phone] [id number] Social History Tobacco Use Types Packs/Day Years Used Date Smoking Tobacco: Never Assessed Sex Assigned at Date Recorded Not on file documented as of this encounter Plan of Treatment Not on filedocumented as of this encounter Procedures Procedure Name Priority Date/Time Associated Diagnosis Comme nts BASIC METABOLIC Routine 04/08/2019 7:45 AM Result s for this PANEL ELECTRICAL ENGINEERING DIRECTOR procedure are i n the results section. CBC WITH PLATELETS Routine 04/08/2019 7:45 AM Res ults for this ELECTRICAL ENGINEERING DIRECTOR procedure are i n the results section. documented in this encounter Results (ABNORMAL) Basic metabolic panel (04/08/2019 7:45 AM ELECTRICAL ENGINEERING DIRECTOR) [facility] Method Time Signature Sodium 137 136 - 145 04/08/2019 HEALTH mmol/L 10:53 AM [facility] Potassium 5.2 (H) 3.5 - 5.0 04/08/2019 HEALTH mmol/L 10:53 AM [facility] Chloride 102 98 - 107 04/08/2019 HEALTH mmol/L 10:53 AM [facility] Carbon Dioxide 22 22 - 31 04/08/2019 HEALTH (CO2) mmol/L 10:53 AM [facility] Anion Gap 13 5 - 18 04/08/2019 HEALTH mmol/L 10:53 AM [facility] Glucose 209 (H) 70 - 125 04/08/2019 HEALTH mg/dL 10:53 AM [facility] Calcium 10.3 8.5 - 10.5 04/08/2019 HEALTH mg/dL 10:53 AM [facility] Urea Nitrogen 101 (H) 8 - 28 04/08/2019 HEALTH mg/dL 10:53 AM [facility] Creatinine 3.66 (H) 0.70 - 04/08/2019 HEALTH 1.30 mg/dL 10:53 AM [facility] GFR Estimate If 20 (L) >60 04/08/2019 HEALTH Black mL/min/1.7 10:[address] LABORATORY GFR Estimate 16 (L) >60 04/08/2019 HEALTH mL/min/1.7 10:[address] LABORATORY Specimen Anatomical Collection Method / Collection Time Recei annie Time (Source) Location / Volume Laterality Blood specimen STRUCTURE OF RIGHT Venipuncture / 04/08/2019 7:45 (specimen) UPPER LIMB / Unknown AM ELECTRICAL ENGINEERING DIRECTOR 10:22 AM ELECTRICAL ENGINEERING DIRECTOR Unknown Narrative [facility] - 04/08/2019 10:53 AM ELECTRICAL ENGINEERING DIRECTOR Fasting Glucose reference range is 70-99 mg/dL per [place] [employer] (ADA) maryan marrero. Alison Hollins LAB - BLOOD ORDERABLES Performing Organization Address City/State/ZIP Code Phon [place] [address] [phone] [id number] [place] [address] [place] [address], [facility] (ABNORMAL) CBC with platelets (04/08/2019 7:45 AM ELECTRICAL ENGINEERING DIRECTOR) [facility] Method Time Signature WBC 5.2 4.0 - 11.0 04/08/2019 HEALTH thou/uL 10:32 AM [facility] RBC Count 2.52 (L) 4.40 - 04/08/2019 HEALTH 6.20 10:32 AM [facility] Hemoglobin 7.9 (L) 14.0 - 04/08/2019 HEALTH 18.0 g/dL 10:32 AM [facility] Hematocrit 25.2 (L) 40.0 - 04/08/2019 HEALTH 54.0 % 10:32 AM [facility] MCV 100 80 - 100 04/08/2019 [facility] fL 10:32 AM [facility] MCH 31.3 27.0 - 04/08/2019 HEALTH 34.0 pg 10:32 AM [facility] MCHC 31.3 (L) 32.0 - 04/08/2019 HEALTH 36.0 g/dL 10:32 AM [facility] RDW 19.4 (H) 11.0 - 04/08/2019 HEALTH 14.5 % 10:32 AM [facility] Platelet Count 140 140 - 440 04/08/2019 HEALTH thou/uL 10:32 AM [facility] Mean Platelet 10.4 8.5 - 12.5 04/08/2019 HEALTH Volume fL 10:32 AM [facility] Specimen Anatomical Collection Method / Collection Time Recei annie Time (Source) Location / Volume Laterality Blood specimen STRUCTURE OF RIGHT Venipuncture / 04/08/2019 7:45 (specimen) UPPER LIMB / Unknown AM ELECTRICAL ENGINEERING DIRECTOR 10:22 AM ELECTRICAL ENGINEERING DIRECTOR Unknown Alison Hollins LAB - BLOOD ORDERABLES Performing Organization Address City/State/ZIP Code Phon e [place] [address] [facility]-[address] [address] [facility] documented in this encounter Visit Diagnoses Not on filedocumented in this encounter
--- OUTSIDE RECORDS SUMMARY | 2022-01-04 06:42 | XMS_ITS | Encounter Summary ---
:1945 Author Organization [facility] Address [address] [place] [address] Care Team Providers Name Role Phone Unavailable Primary Care Provider Unavailable Encounter Details Date Type Department Care Team Description 04/03/2019 Records - [facility] GERIATRIC SERVICES Laboratory OF [place] [address] [place], [place] [phone] Social History Tobacco Use Types Packs/Day Years Used Date Smoking Tobacco: Never Assessed Sex Assigned at Date Recorded Not on file documented as of this encounter Plan of Treatment Not on filedocumented as of this encounter Procedures Procedure Name Priority Date/Time Associated Diagnosis Comme nts BASIC METABOLIC Routine 04/04/2019 6:30 AM Result s for this PANEL GIVING OFFICER procedure are i n the results section. CBC WITH PLATELETS Routine 04/04/2019 6:30 AM Res ults for this GIVING OFFICER procedure are i n the results section. documented in this encounter Results (ABNORMAL) CBC with platelets (04/04/2019 6:30 AM GIVING OFFICER) [facility] Method Time Signature WBC 7.7 4.0 - 11.0 04/04/2019 HEALTH thou/uL 9:51 AM [facility] RBC Count 2.58 (L) 4.40 - 04/04/2019 HEALTH 6.20 9:51 AM [facility]ORY Hemoglobin 8.0 (L) 14.0 - 04/04/2019 HEALTH 18.0 g/dL 9:51 AM [facility] Hematocrit 26.3 (L) 40.0 - 04/04/2019 HEALTH 54.0 % 9:51 AM [facility] MCV 102 (H) 80 - 100 04/04/2019 HEALTH fL 9:51 AM [facility] MCH 31.0 27.0 - 04/04/2019 HEALTH 34.0 pg 9:51 AM [facility] MCHC 30.4 (L) 32.0 - 04/04/2019 HEALTH 36.0 g/dL 9:51 AM [facility] RDW 20.2 (H) 11.0 - 04/04/2019 HEALTH 14.5 % 9:51 AM [facility] Platelet Count 142 140 - 440 04/04/2019 HEALTH thou/uL 9:51 AM [facility] Mean Platelet 11.0 8.5 - 12.5 04/04/2019 HEALTH Volume fL 9:51 AM [facility] Specimen Anatomical Collection Method / Collection Time Recei annie Time (Source) Location / Volume Laterality Blood specimen STRUCTURE OF RIGHT Venipuncture / 04/04/2019 6:30 9:35 (specimen) UPPER LIMB / Unknown AM GIVING OFFICER AM GIVING OFFICER Unknown Alison Hollins LAB - BLOOD ORDERABLES Performing Organization Address City/State/ZIP Code Phon [place] [address] [address] [facility] (ABNORMAL) Basic metabolic panel (04/04/2019 6:30 AM GIVING OFFICER) [facility] Method Time Signature Sodium 140 136 - 145 04/04/2019 HEALTH mmol/L 11:11 AM [facility] Potassium 4.8 3.5 - 5.0 04/04/2019 HEALTH mmol/L 11:11 AM [facility] Chloride 104 98 - 107 04/04/2019 HEALTH mmol/L 11:11 AM [facility] Carbon Dioxide 23 22 - 31 04/04/2019 HEALTH (CO2) mmol/L 11:11 AM [facility] Anion Gap 13 5 - 18 04/04/2019 HEALTH mmol/L 11:11 AM [facility] Glucose 84 70 - 125 04/04/2019 HEALTH mg/dL 11:11 AM [facility] Calcium 10.2 8.5 - 10.5 04/04/2019 HEALTH mg/dL 11:11 AM [facility] Urea Nitrogen 92 (H) 8 - 28 04/04/2019 [facility] mg/dL 11:11 AM [facility] Creatinine 3.32 (H) 0.70 - 04/04/2019 HEALTH 1.30 mg/dL 11:11 AM [facility] GFR Estimate If 22 (L) >60 04/04/2019 HEALTH Black mL/min/1.7 11:[address] LABORATORY GFR Estimate 18 (L) >60 04/04/2019 HEALTH mL/min/1.7 11:[address] LABORATORY Specimen Anatomical Collection Method / Collection Time Recei annie Time (Source) Location / Volume Laterality Blood specimen STRUCTURE OF RIGHT Venipuncture / 04/04/2019 6:30 9:35 (specimen) UPPER LIMB / Unknown AM GIVING OFFICER AM GIVING OFFICER Unknown Narrative [facility] - 04/04/2019 11:11 AM GIVING OFFICER Fasting Glucose reference range is 70-99 mg/dL per [place] [employer] (ADA) maryan marrero. Alison Hollins LAB - BLOOD ORDERABLES Performing Organization Address City/State/ZIP Code [place] [id number] [place] [address] [place] [address], [facility] documented in this encounter Visit Diagnoses Not on filedocumented in this encounter
--- OUTSIDE RECORDS SUMMARY | 2022-01-04 06:42 | XMS_ITS | Encounter Summary ---
:1945 Author Organization [facility] Address [address] [place] [address] Care Team Providers Name Role Phone Unavailable Primary Care Provider Unavailable Encounter Details Date Type Department Care Team Description 10/06/2021 Orders Only [facility] O f Ernie Guzmán MD [phone] [place] [address] [place], [place] [phone] (Wo rk) Social History Tobacco Use [...] 10/07/2021 Unless otherwise specified, test(s) performed at: [facility], [address] [place] [address], [place] [address] BELT LOOP MAKER: Alhaji Noguera M.D., Ph.D For any questions, please call customer service at FREQUENCY:OTHER Resulting Agency Comment Specimen source: Blood Ernie Pompa MD LAB BLOOD ORDERABLES Performing Organization Address City/State/ZIP Code Phon e Number [facility] documented in this encounter Visit Diagnoses Not on filedocumented in this encounter
--- OUTSIDE RECORDS SUMMARY | 2022-01-04 06:42 | XMS_ITS | Encounter Summary ---
:1945 Author Organization [facility] Address [address] [place] [address] Care Team Providers Name Role Phone Unavailable Primary Care Provider Unavailable Encounter Details Date Type Department Care Team Description 10/20/2021 Orders Only [facility] O f Ernie Guzmán MD [address] [place] [address] [place], [place] [phone] (Wo rk) Social History Tobacco Use [...] 10/21/2021 Unless otherwise specified, test(s) performed at: [facility], [address] [place] [address], [place] [address] WING MAILER MACHINE OPERATOR: Alhaji Noguera M.D., Ph.D For any questions, please call customer service at FREQUENCY:MONTHLY Resulting Agency Comment Specimen source: Plasma Ernie Pompa MD LAB BLOOD ORDERABLES Performing Organization Address City/State/ZIP Code Phon e Number [facility]PS SPECTRA [facility] (ABNORMAL) Spectrae Chemistry (10/20/2021) [facility] gist Method Time Signature BUN 38 [...] 10/21/2021 Unless otherwise specified, test(s) performed at: [facility], [address] [place] [address], [place] [address] WING MAILER MACHINE OPERATOR: Alhaji Noguera M.D., Ph.D For [...] 10/21/2021 Unless otherwise specified, test(s) performed at: [facility], [address] [place] [address], [place] [address] WING MAILER MACHINE OPERATOR: Alhaji Noguera M.D., Ph.D For any questions, please call customer service at FREQUENCY:MONTHLY Resulting Agency Comment Specimen source: Blood Ernie Pompa MD LAB BLOOD ORDERABLES Performing Organization Address [facility] Phon e Number [facility] IMMUNO CHEMISTRY (10/20/2021) P athologist Signature Hep B Surface Negative Negative [facility]PS SPECTRA Ag [facility] Specimen (Source) Anatomical Collection Method Collection Time Re ceived Time Location / / Volume Laterality 10/20/2021 10/21/2021 3:50 AM CDT Narrative [facility] - 10/21/2021 Unless otherwise specified, test(s) performed at: [facility], [address] [place] [address], [place] [address] WING MAILER MACHINE OPERATOR: Alhaji Noguera M.D., Ph.D For any questions, please call customer service at FREQUENCY:MONTHLY Resulting Agency Comment Specimen source: Plasma Ernie Pompa MD LAB BLOOD ORDERABLES Performing Organization Address [facility]/ZIP Code Phon e Number [facility] documented in this encounter Visit Diagnoses Not on filedocumented in this encounter
--- OUTSIDE RECORDS SUMMARY | 2022-01-04 06:42 | XMS_ITS | Clinical Summary ---
:1945 Author Organization [facility] Address [address] [facility] [address] [place] [address] Phone Care Team Providers Name Role Phone Unavailable Primary Care Provider Unavailable Encounters Date Type Specialty Care Team Description 12/22/2021 Orders Only NephErnie Mccoy MD 12/15/2021 Orders Only NephErnie Mccoy MD 12/08/2021 Orders Only NephErnie cMcoy MD 12/08/2021 Treatment Ernie Pompa MD 12/01/2021 Orders Only NephErnie Mccoy MD 12/01/2021 Treatment Ernie Pompa MD 11/24/2021 Orders Only NephErnie Mccoy MD 11/17/2021 Orders Only NephErnie Mccoy MD 11/10/2021 Orders Only NephErnie Mccoy MD 11/10/2021 Treatment Ernie Pompa MD 11/03/2021 Orders Only NephErnie Mccoy MD 10/27/2021 Orders Only Ernie Parnell MD 10/27/2021 Treatment Ernie Pompa MD 10/20/2021 Orders Only NephErnie Mcocy MD 10/13/2021 Orders Only Ernie Parnell MD 10/13/2021 Treatment Ernie Pompa MD 10/06/2021 Orders Only NephErnie Mccoy MD from Last [...] Routine 12/22/2021 Results for this procedure are i n the results section . CHEMISTRY Routine 12/22/2021 Results for thi s procedure are i n the results section . CHEMISTRY Routine 12/22/2021 Results for thi s procedure are i n the results section . HEMATOLOGY Routine 12/22/2021 Results for thi s procedure are i n the results section . HEMATOLOGY Routine 12/15/2021 Results for thi s [...] section . from Last 3 Months Results IMMUNO CHEMISTRY (12/22/2021)Only the most recent of3 resultswithin the time [...] e Number [facility]PS SPECTRA [facility] (ABNORMAL) HEMATOLOGY (12/22/2021)Only the most recent of12 resultswithin the time period is included. Analysis [...] 12/23/2021 Unless otherwise specified, test(s) performed at: [facility], [address] [place] [address], [place] [address] BONE DRIER OPERATOR: Alhaji Noguera M.D., Ph.D For any questions, please call customer service at FREQUENCY:MONTHLY Resulting Agency Comment Specimen source: Blood Ernie Pompa MD LAB BLOOD ORDERABLES Performing Organization Address City/[facility] Phon e Number APS SPECTRA [facility] (ABNORMAL) Spectrae Chemistry (12/22/2021)Only the most recent of6 resultswithin the time period is included. P athologist Signature PTH 451 (H) 16 - 80 APS SPECTRA pg/mL [facility] Specimen (Source) Anatomical Collection Method Collection Time Re ceived Time Location / / Volume Laterality 12/22/2021 12/23/2021 10:5 6 AM CDT Narrative APS SPECTRA [facility] - 12/23/2021 Unless otherwise specified, test(s) performed at: [facility], [address] [place] [address], [place] [address] BONE DRIER OPERATOR: Alhaji Noguera M.D., Ph.D For any questions, please call customer service at FREQUENCY:MONTHLY Resulting Agency Comment Specimen source: Plasma Ernie Pompa MD LAB BLOOD ORDERABLES Performing Organization Address City/State/ZIP [facility] Phon e Number APS SPECTRA [facility] HD KINETICS (11/24/2021)Only the most recent of2 resultswithin the time [...] [facility] POST CHEMISTRY (11/24/2021)Only the most recent of2 resultswithin the time period is included. P athologist Signature BUN Post 13 6 - 19 APS SPECTRA Dialysis mg/dL [facility] Specimen (Source) Anatomical Collection Method Collection Time Re ceived Time Location / / Volume Laterality 11/24/2021 11/26/2021 7:00 AM CDT Narrative APS SPECTRA [facility] - 11/26/2021 Unless otherwise specified, test(s) performed at: [facility], [address] [place] [address], [place] [address] BONE DRIER OPERATOR: Alhaji Noguera M.D., Ph.D For any questions, please call customer service at FREQUENCY:MONTHLY Resulting Agency Comment Specimen source: Plasma Ernie Pompa MD LAB BLOOD ORDERABLES Performing Organization Address City/State/ZIP Code Phon e Number APS SPECTRA [facility] Spectra [place] Lab Results (11/24/2021)Only the most recent of2 resultswithin the time [...] Address City/State/ZIP Code Phon e Number [place] from Last 3 Months Insurance Payer Benefit Plan Subscriber ID Effective Dates Phone Address Type / Group [place] [id number] 2018-Sameer [phone] [address] [address] MEDICARE ADV ([id number]) t [address] [place] [address] ([place]) [place] [address]
--- OUTSIDE RECORDS SUMMARY | 2022-01-04 06:42 | XMS_ITS | Encounter Summary ---
:1945 Author Organization [facility] Address [address] [place] [address] Care Team Providers Name Role Phone Unavailable Primary Care Provider Unavailable Encounter Details Date Type Department Care Team Description 11/17/2021 Orders Only [facility] Ernie Guzmán MD [phone] [place] [address] [place], [place] [phone] (Wo rk) Social History Tobacco Use [...] 11/18/2021 Unless otherwise specified, test(s) performed at: [facility], [address] [place] [address], [place] [address] BUNDLE CLERK: Alhaji Noguera M.D., Ph.D For any questions, please call customer service at FREQUENCY:OTHER Resulting Agency Comment Specimen source: Blood Ernie Pompa MD LAB BLOOD ORDERABLES Performing Organization Address City/State/ZIP Code Phon e Number [facility]PS SPECT[facility] documented in this encounter Visit Diagnoses Not on filedocumented in this encounter
--- OUTSIDE RECORDS SUMMARY | 2022-01-04 06:42 | XMS_ITS | Encounter Summary ---
:1945 Author Organization [facility] Address [address] [place] [address] Care Team Providers Name Role Phone Unavailable Primary Care Provider Unavailable Encounter Details Date Type Department Care Team Description 10/27/2021 Treatment [facility] Ernie Guzmán MD [address] [place] [address] [place], [place] [phone] (Wo rk) Social History Tobacco Use Types Packs/Day Years Used Date Smoking Tobacco: Unknown Comments: Smoking History Info:Patient n ot screened Sex Assigned at Date Recorded Not on file documented as of this encounter Miscellaneous Notes Dialysis Note - Ernie Pompa MD - 10/27/2021 10:07 AM CDT Date: Oct 27, 2021 Patient Name: Shaun Ocampo : 1945 Chart #: [id number] Sex: M This patient was personally seen [...] AM ) BP (sit): 99/43 AP(-) / BUILDING PERFORMANCE CONSULTANT: 176/154 Pulse: 62 Chairside data as of [...] 08/27/2021 05/28/2021 04/23/2021 Access Flow [id number] 1241 Treatment Medication Orders Medication Sig Start [...] mcg IVP Every 2 weeks 10/27/2021 10/26/2022 SHIRT TURNER: Ernie Pompa MD LOCATION: [place] [phone] SCHEDULE: -W- 2nd Shift EDW: kg. DIALYZER: HD DURATION: NEEDLE SIZE: ANTICOAG: BATH: QB: ml/min QD: ml/min Subjective Tolerating dialysis well. 10/27/21: He is doing much better after extra UF run last week at [facility]. BP adequate, challengingEDW today. His breathing is improved. Also went to wound care clinic at [facility] and they dressedwounds and he has follow-up and instructions for dressings and cares. He has no new symptoms and otherwise feels well. 10/13: Had GI bleeding on Monday, went to ER after dialysis, admitted at [facility], had 3u blood, EGDwithout obvious source, [...] and do periodic extra UF treatments at [facility] rather than risk more hypotension post-tx with use of midodrine and additional UF during treatments. He has fistulagram last week, went well and access working well since. 08/11: Continues to have problems with fluid gains. we have spent considerable time discussing this, he is trying to work on this but can't seem to avoid large gains. Will go to [facility] for UF tomorrow, needs extra treatments every 2 weeks it looks like to maintain EDW. He does get SOB when >5K over dry weight in particular. 07/21/21: Continues to struggle with fluid gains, extra UF run scheduled tomorrow at [facility]. He does feel more SOB when fluid overloaded. No new symptoms otherwise, he is enjoying the nicer weather which allows him to do more activity and not sit at home and drink fluids which he thinks will help with IDWG's. 07/14/21: Continues to have high gains, unfortunately [facility] without staff to open tomorrow for extra [...] improving. Fluid gains continue to be high, [facility] not open on this week, says he will do his best withlimiting salt/fluid. HE does feel SOB with exertion with extra fluid on, no orthopnea. 05/26/21: Has SOB when >5 Kg over dry weight, extra run last week at [facility] helped. Trying his best with fluid restriction. [...] extra run and we discussed going to [facility] tomorrow for UF only run and he [...] again today, may need extra run at [facility] if can't get down over next week. 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 06/10: Doing well overall, no new complaints, [...] Went to Urgent care -> ER in [place] yesterday,CT with R hydro but no obstructive [...] prescription. Vascular Access Assessment Type of access: [id number]/[email or web address] Surgeon - Lary GARDNER 08/2021: fistulagram at [facility] with angioplasty of stenosis completed Anemia Assessment [...] below goal. Intact PTH is above goal. Tire Sorter will adjust binders and vitamin D per [...] high Extra UF run needed occasionally at [facility] when they are open, did last week [...]
--- OUTSIDE RECORDS SUMMARY | 2022-01-04 06:42 | XMS_ITS | Encounter Summary ---
:1945 Author Organization [facility] Address [address] [place] [address] Care Team Providers Name Role Phone Unavailable Primary Care Provider Unavailable Encounter Details Date Type Department Care Team Description 03/31/2019 Records - [facility] GERIATRIC SERVICES Laboratory OF [place] [address] [place], [place] [phone] [address] Social History Tobacco Use Types Packs/Day Years Used Date Smoking Tobacco: Never Assessed Sex Assigned at Date Recorded Not on file documented as of this encounter Plan of Treatment Not on filedocumented as of this encounter Procedures Procedure Name Priority Date/Time Associated Diagnosis Comme nts BASIC METABOLIC Routine 04/01/2019 7:55 AM Result s for this PANEL POLICE COMMANDING OFFICER procedure are i n the results section. CBC WITH PLATELETS Routine 04/01/2019 7:55 AM Res ults for this POLICE COMMANDING OFFICER procedure are i n the results section. documented in this encounter Results (ABNORMAL) CBC with platelets (04/01/2019 7:55 AM POLICE COMMANDING OFFICER) [facility] Method Time Signature WBC 7.6 4.0 - 11.0 04/01/2019 HEALTH thou/uL 12:59 PM [facility] RBC Count 2.48 (L) 4.40 - 04/01/2019 HEALTH 6.20 12:59 PM [facility] Hemoglobin 7.7 (L) 14.0 - 04/01/2019 HEALTH 18.0 g/dL 12:59 PM [facility] Hematocrit 25.1 (L) 40.0 - 04/01/2019 HEALTH 54.0 % 12:59 PM [facility] MCV 101 (H) 80 - 100 04/01/2019 HEALTH fL 12:59 PM [facility] MCH 31.0 27.0 - 04/01/2019 HEALTH 34.0 pg 12:59 PM [facility] MCHC 30.7 (L) 32.0 - 04/01/2019 HEALTH 36.0 g/dL 12:59 PM [facility] RDW 19.7 (H) 11.0 - 04/01/2019 HEALTH 14.5 % 12:59 PM [facility] Platelet Count 137 (L) 140 - 440 04/01/2019 [facility] thou/uL 12:59 PM [facility] Mean Platelet 10.7 8.5 - 12.5 04/01/2019 HEALTH Volume fL 12:59 PM [facility] Specimen Anatomical Collection Method / Collection Time Recei annie Time (Source) Location / Volume Laterality Blood specimen STRUCTURE OF RIGHT Venipuncture / 04/01/2019 7:55 (specimen) UPPER LIMB / Unknown AM POLICE COMMANDING OFFICER 12:23 PM POLICE COMMANDING OFFICER Unknown [facility] LAB - BLOOD ORDERABLES Performing Organization Address [facility]/State/ZIP Code Phon e Number [facility] [address] [address] [facility] (ABNORMAL) Basic metabolic panel (04/01/2019 7:55 AM POLICE COMMANDING OFFICER) [facility] Method Time Signature Sodium 137 136 - 145 04/01/2019 HEALTH mmol/L 1:17 PM [facility] Potassium 4.7 3.5 - 5.0 04/01/2019 HEALTH mmol/L 1:17 PM [facility] Chloride 105 98 - 107 04/01/2019 HEALTH mmol/L 1:17 PM [facility] Carbon Dioxide 22 22 - 31 04/01/2019 HEALTH (CO2) mmol/L 1:17 PM [facility] Anion Gap 10 5 - 18 04/01/2019 HEALTH mmol/L 1:17 PM [facility] Glucose 83 70 - 125 04/01/2019 HEALTH mg/dL 1:17 PM [facility] Calcium 10.1 8.5 - 10.5 04/01/2019 HEALTH mg/dL 1:17 PM [facility] Urea Nitrogen 93 (H) 8 - 28 04/01/2019 HEALTH mg/dL 1:17 PM [facility] Creatinine 3.02 (H) 0.70 - 04/01/2019 HEALTH 1.30 mg/dL 1:17 PM [facility] GFR Estimate If 25 (L) >60 04/01/2019 HEALTH Black mL/min/1.7 1:[address] LABORATORY GFR Estimate 21 (L) >60 04/01/2019 HEALTH mL/min/1.7 1:[address] LABORATORY Specimen Anatomical Collection Method / Collection Time Recei annie Time (Source) Location / Volume Laterality Blood specimen STRUCTURE OF RIGHT Venipuncture / 04/01/2019 7:55 (specimen) UPPER LIMB / Unknown AM POLICE COMMANDING OFFICER 12:23 PM POLICE COMMANDING OFFICER Unknown Narrative [facility] - 04/01/2019 1:17 PM POLICE COMMANDING OFFICER Fasting Glucose reference range is 70-99 mg/dL per [place] [employer] (ADA) maryan marrero. [facility] LAB - BLOOD ORDERABLES Performing Organization Address City/State/ZIP Code Phon e Number [place] [address] [id number] [place] [address]O LABORATORY [address] [place] [address], [facility] documented in this encounter Visit Diagnoses Not on filedocumented in this encounter
--- OUTSIDE RECORDS SUMMARY | 2022-01-04 06:42 | XMS_ITS | Encounter Summary ---
:1945 Author Organization [facility] Address [address] [facility] [address] [place] [address] Care Team Providers Name Role Phone Unavailable Primary Care Provider Unavailable Encounter Details Date Type Department Care Team Description 12/01/2021 Orders Only [facility] f Ernie Guzmán MD [phone] [place] [address] [place], [place] [phone] (Wo rk) Social History Tobacco Use Types Packs/Day Years Used Date Smoking Tobacco: Unknown Comments: Smoking History Info:Patient n ot screened Sex Assigned at Date Recorded Not on file documented as of this encounter Plan of Treatment Not on filedocumented as of this encounter Procedures Procedure Name Priority Date/Time Associated Diagnosis Comme nts HEMATOLOGY Routine 12/01/2021 Results for thi s procedure are in the resu lts section. documented in this encounter Results (ABNORMAL) HEMATOLOGY (12/01/2021) Analysis Performed At Patho logist Time Signature Hemoglobin 10.8 (L) 14.0 - APS SPECTRA 18.0 g/dL [facility] Hemoglobin x 3 32.4 (L) 42.0 - [facility]RA 54.0 % [facility] Specimen (Source) Anatomical Collection Method Collection Time Re ceived Time Location / / Volume Laterality 12/01/2021 12/02/2021 2:56 PM CDT Narrative [facility]PS [facility]PECT[facility] - 12/02/2021 Unless otherwise specified, test(s) performed at: [facility], [address] [place] [address], [place] [address] SUPERVISOR ESTERS AND EMULSIFIERS: Alhaji Noguera M.D., Ph.D For any questions, please call customer service at FREQUENCY:OTHER Resulting Agency Comment Specimen source: Blood Ernie Pompa MD LAB BLOOD ORDERABLES Performing Organization Address City/State/ZIP Code Phon e Number [facility]PS [facility] documented in this encounter Visit Diagnoses Not on filedocumented in this encounter
--- OUTSIDE RECORDS SUMMARY | 2022-01-04 06:42 | XMS_ITS | Encounter Summary ---
:1945 Author Organization [facility] Address [address] [place] [address] Care Team Providers Name Role Phone Unavailable Primary Care Provider Unavailable Encounter Details Date Type Department Care Team Description 12/01/2021 Treatment [facility] Ernie Guzmán MD [address] [place] [address] [place], [place] [phone] (Wo rk) Social History Tobacco Use Types Packs/Day Years Used Date Smoking Tobacco: Unknown Comments: Smoking History Info:Patient n ot screened Sex Assigned at Date Recorded Not on file documented as of this encounter Miscellaneous Notes Dialysis Note - Ernie Pompa MD - 12/01/2021 10:28 AM CDT Date: Dec 01, 2021 Patient Name: Shaun Ocampo : 1945 Chart #: [id number] Sex: M This patient was personally seen [...] AM ) BP (sit): n/a AP(-) / CORRECTION OFFICER: 225/160 Pulse: n/a Chairside data as of [...] 05/28/2021 04/23/2021 Access Flow [id number] 1249 BACKPACKERS MANAGER: Ernie Pompa MD LOCATION: [place] [phone] SCHEDULE: -- 2nd Shift EDW: kg. DIALYZER: [...] after extra UF run last week at [facility]. BP adequate, challengingEDW today. His breathing is improved. Also went to wound care clinic at [facility] and they dressedwounds and he has follow-up and instructions for dressings and cares. He has no new symptoms and otherwise feels well. 10/13: Had GI bleeding on Monday, went to ER after dialysis, admitted at [facility], had 3u blood, EGDwithout obvious source, [...] and do periodic extra UF treatments at [facility] rather than risk more hypotension post-tx with use of midodrine and additional UF during treatments. He has fistulagram last week, went well and access working well since. 08/11: Continues to have problems with fluid gains. we have spent considerable time discussing this, he is trying to work on this but can't seem to avoid large gains. Will go to [facility] for UF tomorrow, needs extra treatments every 2 weeks it looks like to maintain EDW. He does get SOB when >5K over dry weight in particular. 07/21/21: Continues to struggle with fluid gains, extra UF run scheduled tomorrow at [facility]. He does feel more SOB when fluid overloaded. No new symptoms otherwise, he is enjoying the nicer weather which allows him to do more activity and not sit at home and drink fluids which he thinks will help with IDWG's. 07/14/21: Continues to have high gains, unfortunately [facility] without staff to open tomorrow for extra [...] improving. Fluid gains continue to be high, [facility] not open on this week, says he will do his best withlimiting salt/fluid. HE does feel SOB with exertion with extra fluid on, no orthopnea. 05/26/21: Has SOB when >5 Kg over dry weight, extra run last week at [facility] helped. Trying his best with fluid restriction. [...] extra run and we discussed going to [facility] tomorrow for UF only run and he [...] again today, may need extra run at [facility] if can't get down over next week. 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 06/10: Doing well overall, no new complaints, [...] Went to Urgent care -> ER in [place] yesterday,CT with R hydro but no obstructive [...] prescription. Vascular Access Assessment Type of access: [id number]/2019 Surgeon Annita GARDNER 08/2021: fistulagram at [facility] [...] at goal. Intact PTH is at goal. Loan Processor will adjust binders and vitamin D per [...]
--- OUTSIDE RECORDS SUMMARY | 2022-01-04 06:42 | XMS_ITS | Encounter Summary ---
:1945 Author Organization [facility] Address [address] [place] [address] Care Team Providers Name Role Phone Unavailable Primary Care Provider Unavailable Encounter Details Date Type Department Care Team Description 12/15/2021 Orders Only [facility] f Ernie Guzmán MD [address] [place] [address] [place], [place] [phone] (Wo rk) Social History Tobacco Use [...] 12/16/2021 Unless otherwise specified, test(s) performed at: [facility], [address] [place] [address], [place] [address] CREW CHIEF: Alhaji Noguera M.D., Ph.D For any questions, please call customer service at FREQUENCY:OTHER Resulting Agency Comment Specimen source: Blood Ernie Pompa MD LAB BLOOD ORDERABLES Performing Organization Address City/State/ZIP Code Phon e Number [facility] documented in this encounter Visit Diagnoses Not on filedocumented in this encounter
--- OUTSIDE RECORDS SUMMARY | 2022-01-04 06:42 | XMS_ITS | Encounter Summary ---
:1945 Author Organization [place] Address [address] [place] [address] Care Team Providers Name Role Phone Liban Leos Primary Care Provider Ernie Pompa MD Unavailable Reason for Visit Reason Comments Hypotension Auth/Cert Specialty Diagnoses / Procedures Referred By Contact Refer red To Contact Med Surg Diagnoses UGI bleed UGI bleed 5 Medical Surgical [address] [place], [place] [address] Phone: Fax: Referral ID Status Reason Start Date Expiration Date Visits Requ ested Visits Authorized [id number] 1 1 Encounter Details Date Type Department Care Team Description 10/10/2021 Surgery [facility] Lizz, ESOPHAGOGA STRODUODENOSCOPY [facility] Joce biopsies Services MD Edgard [address] [place] [address] [address] [phone] [place], [place] [address] Surgery Details Date/Time Status Location OR Service [...] CDT Pulse 72 10/10/2021 7:20 AM per telecom analyst CDT Temperature 36.5 ??C (97.7 ??F) 10/09/2021 [...] 10/11/2021 10:42 AM CDT Hospitalist Discharge Summary [facility] Jonatan Mejia Date of : 1945 [...] daily fluticasone (FLONASE) 50 MCG/ACT nasal spray [place] 1 spray in nostril daily fluticasone-salmeterol (ADVAIR [...] ulcer and??morbid obesity??who??presents to the ED from [facility] due to concerns of hematemesis and melanotic stool. He had just finished HD (took 1.2L) and presented to [facility] due to concerns of dizziness and hematemesis. ?? Work up at [facility] showed hgb of 7.5 and soft pressures in the 100's. CT abd pelvis showed normal distal esophagus, stomach and normal liver. No symptoms of obstruction or mass. There were moderate ascites in the dependent abdomen. He received NS bolus (500cc) and 1 unit(s) PRBC and transferred to [facility] ED. 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 He does also have a history [...] Minutes Dallin Farah DO MPH [facility] Hospitalist [place] [address] 10/11/2021 documented in this encounter Medications at Time of Discharge Medication Sig Dispensed Refills Start Date End Date allopurinol (ZYLOPRIM) Take 100 mg by mouth 0 100 MG tablet daily atorvastatin (LIPITOR) Take 20 mg by mouth 0 11/19 20 MG tablet daily fluticasone (FLONASE) 50 [place] 1 spray in 0 12/15 MCG/ACT nasal [...] walker and gait belt, denies pain, GREY, [id number] on RA. VSS, continues to be anuric. [...] to treatment See Adult Hemodialysis flowsheet in [facility] for further details and post assessment. Machine water alarm in place and functioning. Transducer pods intact and checked every 15min. Pt returned via bed. Chlorine/Chloramine water system checked every 4 hours. Outpatient Dialysis at [facility] Post treatment report given to Delilah Goldstein RN regarding 2L of fluid removed, last BP of 104/72, and patient pain rating of 0/10. Please remove patient dressing on AVF and AVG needle sites 24 hours after dialysis. If leaking occurs please apply a Band-Aid. Kieran, Frederick Puentes MD - 10/11/2021 2:02 PM CDT Renal Medicine Progress Note Assessment/Plan: # ESRD # Anemia # CKD-MBD # CAD, mitral clips and bioprosthetic AVR # COPD Plan: 3.5 hrs HD. UF ~ 2-3 liters as tolerate. No heparin. 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 Interval [...] medications, labs and imaging. Frederick Alcaraz MD [facility] - Nephrology Office phone :[phone] Pager: [phone] Jovita Blackmon RN - 10/11/2021 7:05 AM [...] Farah DO - 10/10/2021 12:36 PM CDT [facility] Hospitalist Progress Note Name: Jonatan Mejia Provider: Dallin Farah DO MPH Date of Service: 10/10/2021 Summary of Stay: Jonatan eMjia is a 73 year old. male with a past medical history pertinent for??ESRD on HD MWF, paroxysmal Afib on ASA 81m g daily, aortic stenosis??s/p bioprosthetic aortic valve replacement, hypertension, diabetes mellitus type II, secondary hyperparathyroidism, esophageal reflux/ barretts esophogus, prior GIB due to gastric ulcer and morbid obesity??who presents to the ED from [facility] due to concerns of hematemesis and melanotic stool. He had just finished HD (took 1.2L) and presented to [facility] due to concerns of dizziness and hematemesis. ?? Work up at [facility] showed hgb of 7.5 and soft pressures in the 100's. CT abd pelvis showed normal distal esophagus, stomach and normal liver. No symptoms of obstruction or mass. There were moderate ascites in the dependent abdomen. He received NS bolus (500cc) and 1 unit(s) PRBC and transferred to [facility] ED. Work up in our ED reveals [...] Laboratory: Recent Labs Lab 10/10/2172110/10/2121410/09/21220110/09/21 1348 10/09/21 0910/08/217 10/08/21 190 WBC 7.2 -- -- -- [...] hour(s)). Dallin Farah DO MPH [facility] 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 [...] results for input(s): MAG in the last 98855 hours. No results for input(s): PHOS in the last 71506 hours. Recent Labs Lab Test 10/10/21 0710/09/21 0912 10/08/211901 GAMA 8.9 8.7 8.8 Lab [...] Farah DO - 10/09/2021 10:04 AM CDT [facility] Hospitalist Progress Note Name: Jonatan Mejia Provider: Dallin Farah DO, MPH Date of Service: 10/09/2021 Summary of Stay: Jonatan eMjia is a 73 year old. male with a past medical history pertinent for??ESRD on HD MWF, paroxysmal Afib on ASA 81m g daily, aortic stenosis??s/p bioprosthetic aortic valve replacement, hypertension, diabetes mellitus type II, secondary hyperparathyroidism, esophageal reflux/ barretts esophogus, prior GIB due to gastric ulcer and morbid obesity??who presents to the ED from [facility] due to concerns of hematemesis and melanotic stool. He had just finished HD (took 1.2L) and presented to [facility] due to concerns of dizziness and hematemesis. ?? Work up at [facility] showed hgb of 7.5 and soft pressures in the 100's. CT abd pelvis showed normal distal esophagus, stomach and normal liver. No symptoms of obstruction or mass. There were moderate ascites in the dependent abdomen. He received NS bolus (500cc) and 1 unit(s) PRBC and transferred to [facility] ED. Work up in our ED reveals [...] hour(s)). Dallin Farah DO MPH [facility] Hospitalist Clark Lentz [facility] [address] 10/09/2021 documented in this encounter H&P Notes Layne Rossi PA-C - 10/08/2021 9:27 PM CDT [facility] Admission History and Physical Examination NAME: [...] morbid obesity??who presents to the ED from [facility] due to concerns of hematemesis and melanotic stool. He had just finished HD (took 1.2L) and presented to [facility] due to concerns of dizziness and hematemesis. Work up at [facility] showed hgb of 7.5 and soft bps in the 100's. CT abd pelvis showed normal distal esophagus, stomach and normal liver. No sxs of obstruction or mass. There were moderate ascites in the dependent abd. He received NS bolus (500cc) and 1u PRBC and transferred to [facility] ED. Work up in our ED reveals [...] morbid obesity??who presents to the ED from [facility] due to concerns of hematemesis and melanotic stool. He had just finished HD (took 1.2L) and presented to [facility] due to concerns of dizziness and hematemesis. Work up at [facility] showed hgb of 7.5 and soft bps in the 100's. CT abd pelvis showed normal distal esophagus, stomach and normal liver. No sxs of obstruction or mass. There were moderate ascites in the dependent abd. He received NS bolus (500cc) and 1u PRBC and transferred to [facility] ED. Work up in our ED reveals [...] 50 MCG/ACT nasal spray Yes Yes Sig: [place] 1 spray in nostril daily fluticasone-salmeterol (ADVAIR [...] 16 AST -- 15 Layne Rossi PA-C [facility] October 08, 2021 Securely message with the [employer] Console (learn more here) Text page via [facility] Paging/Directory Associated attestation - Fadi Viveros DO - 10/09/2021 2:30 PM CDT Physician Attestation I, Fadi Viveros DO, have reviewed and discussed with the advanced practice provider their history, physical and plan for Dunn Jimena Terrence. I did not participate in a [...] 11:33 AM CDTAssociated Order(s): GASTROENTEROLOGY IP CONSULT [facility] Gastroenterology Consultation Joce Zamudio MD Patient [...] an EGD in the remote past at [facility] that showed ulcers. He has ascites on [...] Medication Sig Last Dose Taking? Auth Provider Skilled Nursing End Date allopurinol (ZYLOPRIM) 100 MG tablet [...] Yes fluticasone (FLONASE) 50 MCG/ACT nasal spray [place] 1 spray in nostril daily 10/07/2021 at [...] screen orders. ??? Lisinopril Cough Social History: Dunn Jimena Mejia Family History: No primary relatives with [...] reviewed. . Recent Labs Lab Test 10/09/21 0912 10/08/217 10/08/21 2044 10/08/21 19004/08/19 0745 WBC 7.2 -- -- [...] AST 15 ALKPHOS 116 Joce Zamudio MD, [facility] [phone] Terry Wolfe MD - 10/09/2021 10:29 AM CDT Consult Date: 10/09/2021 REQUESTING PHYSICIAN: Dallin Farah MD. FRAME HAND: Dallas Wolfe MD. REASON FOR CONSULTATION: End-stage [...] lives alone [place]. REVIEW OF SYSTEMS: He feels relatively well [...] and Internal Medicine. Terry Wolfe MD MT: [place] Name: JONATAN MEJIA Account: [id number] : 1945 Consult Date: 10/09/2021 Document: [id number] Terry Wolfe MD - 10/09/2021 10:24 AM CDTAssociated Order(s): NEPHROLOGY IP CONSULT See dictation. Confirmation # [id number]. documented in this encounter ED Notes Essence Osuna RN - 10/09/2021 1:16 PM CDT Pt received one unit of RBC this morning, tolerated well, no transfusion reaction. Stepdaughter Melanie jin, aware of patient transfer to [facility]. Advanced to clear liquid diet, tolerating well. Pt will be NPO at midnight for EGD on 10/10. Kaylee Trejo RN - 10/08/2021 11:05 PM CDT [facility] ED Nurse Handoff Report Jonatan Mejia [...] X 1. Lift room needed:No. Bariatric: No Faculty Head Needed: No Isolation: No. Infection: Not Applicable. [...] - Initial Complaint: Hypotension. Focused Assessment: Jonatan Mejai is a 76 year old male with [...] Brianna, , and informed her of admission [facility] boarding status. She will visit tomorrow and [...] 10/08/2021 6:30 PM CDT sent from new site ER. Dialysis patient with hypotension today. Given 500ml and 1 unit PRBC at new site. Florentino Ragsdale MD - 10/08/2021 6:23 PM [...] Kaylee Trejo RN Pharmacy-Admission Medication History - Erlin Dodd, [facility] - 10/08/2021 10:14 PM CDT Admission medication history interview status for this patient is complete. See [facility] admission navigator for allergy information, prior to admission medications and immunization status. 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 No Prior to Admission medications Medication Sig Last Dose Taking? Auth Provider Skilled Nursing End Date allopurinol (ZYLOPRIM) 100 MG tablet [...] Yes fluticasone (FLONASE) 50 MCG/ACT nasal spray [place] 1 spray in nostril daily 10/07/2021 at [...] Diagnosis HEMODIALYSIS SINGLE TREATMENT Routine 10/11/2021 SETUP ([facility]) 4:33 PM CDT HEMODIALYSIS DIALYZER ([facility]) Routine 10/11/2021 2:28 PM CDT [...] B surface antigen (10/11/2021 7:46 AM CDT) [facility] [employer] Method Time Signature Hepatitis B Nonreactive Nonreactive [...] e Number [facility] C[facility]/PROT/ENDO [facility] [place] [address] Core/Prot/Endo [address] [facility] [address], Room 3-580 (ABNORMAL) CBC with platelets (10/11/2021 6:36 AM CDT) [facility] [employer] Method Time Signature WBC Count 7.1 4.0 [...] Address City/State/ZIP Code Phon [place] [address] Care Lab [address] Lab (1st floor, no room number) (ABNORMAL) Basic metabolic panel (10/11/2021 6:36 AM CDT) [facility] Method Time Signature Sodium 134 133 [...] and gender (Brigette et al., NEJM, DOI: 10.1056/[id number]) Specimen Anatomical Collection Method / Collection Time Recei annie Time (Source) Location / Volume Laterality Blood STRUCTURE OF RIGHT Venipuncture / 10/11/2021 6:36 09/18 6:42 HAND / Unknown Unknown AM CDT AM CDT Dallin Farah DO LAB - BLOOD ORDERABLES Performing Organization Address City/State/ZIP Code [place] [address] Care Lab [address] Lab (1st floor, no room number) [...] LAB - BEAKER POCT Performing Organization Address [facility]/ZIP Code Phon e [place] [address] Care Lab [address] Lab (1st floor, no room number) Surgical Pathology Exam (10/10/2021 8:58 AM CDT) Component Value Ref Test Analysis Performed Pathologis t Range Method Time At Signature Case Report Surgical Pathology Report ? Case: [id number] ? Authorizing Provider: ??Carb allo, Joce ? Collected: ? 10/10/2021 08:58 AM ? 2 8:22 AM LABORA TORY ? MD Edgard ? CDT [facility] Received: ?10/10/2021 09:42 AM ? Main [...] was 2 8:22 AM LABORATORY completed at [facility] Laboratory Case Images 2 8:22 [...] Address City/State/ZIP Code Ph[place] [phone] Care Lab [address] [facility] Lab (1st floor, no room number) UPPER GI ENDOSCOPY (10/10/2021 8:18 AM CDT) Component Value Ref Test Analysis Performed At [facility] Range Method Time Signature [facility] RADIOLOGY Endoscopy RESULTS Patient Name: Jonatan Mejia ? Procedure Date: 09/18 8:18 AM ? Account Num flako: [id number] Date of : 1945 ?Admit Type: Inp [...] Model ?# GIF-H190, Endora # 205, SN #[id number] was ?introduced through the mouth, and advanced [...] Note Initiated On: 10/10/2021 8:18 AM MRN: ?[id number] Procedure Date: ? 10/10/2021 8:18:14 AM Total [...] CBC with platelets (10/10/2021 7:22 AM CDT) [facility] Method Time Signature WBC Count 7.2 [...] LAB - BLOOD ORDERABLES Performing Organization Address City/[facility]/ZIP Code Phon e [place] [address] Care Lab [address] Lab (1st floor, no room number) (ABNORMAL) Basic metabolic panel (10/10/2021 7:22 AM CDT) [facility] Method Time Signature Sodium 132 (L) [...] and gender (Brigette et al., NEJM, DOI: 10.1056/[id number]) Specimen Anatomical Collection Method / Collection Time Recei annie Time (Source) Location / Volume Laterality Blood STRUCTURE OF RIGHT Venipuncture / 10/10/2021 7:22 07/2 06/2021 7:31 UPPER LIMB / Unknown AM CDT AM CDT Unknown Dallin Farah DO LAB - BLOOD ORDERABLES Performing Organization Address City/State/ZIP Code Phon e [place] [phone] Care Lab [address] Lab (1st floor, no room number) [...] LAB - BLOOD ORDERABLES Performing Organization Address City/[facility]/[place] [address] Care Lab [address] Lab (1st floor, no room number) [...] LAB - BLOOD ORDERABLES Performing Organization Address City/[facility]/[place] [address] Care Lab [address] Lab (1st floor, no room number) [...] LAB - BLOOD ORDERABLES Performing Organization Address City/[facility]/[place] [address] Care Lab [address] Lab (1st floor, no room number) Transfuse red blood cells (unit) No special requirements (10/09/2021 11:51 AM CDT) Dallin Simons MD BLOOD TRANSFUSION ORDERABLES Transfuse red blood cells (unit), 1 Units No special requirements (10/09/2021 11:51 AM CDT) Dallin Simons MD BLOOD TRANSFUSION ORDERABLES (ABNORMAL) CBC with platelets (10/09/2021 9:12 AM CDT) [facility] gist Method Time Signature WBC Count 7.2 [...] City/State/ZIP Code Phon e Number [place] [address] Care Lab [address] Lab (1st floor, no room number) (ABNORMAL) Basic metabolic panel (10/09/2021 9:12 AM CDT) [facility] Method Time Signature Sodium 134 133 - 144 10/09/2021 LABORATORY mmol/L 9:56 AM CDT Potassium 4.8 3.4 - 5.3 10/09/2021 LABORATORY mmol/L 9:56 AM CDT Chloride 100 [...] and gender (Brigette et al., NEJ, DOI: 10.1056/[id number]) Specimen Anatomical Collection Method / Collection Time Recei annie Time (Source) Location / Volume Laterality Blood STRUCTURE OF RIGHT Venipuncture / 10/09/2021 9:12 07/2 05/2021 9:34 HAND / Unknown Unknown AM CDT AM CDT Layne Rossi PA-C LAB - BLOOD ORDERABLES Performing Organization Address City/State/ZIP Code Ph[place] [phone] Care Lab [address] Lab (1st floor, no room number) Prepare red blood cells (unit) (10/09/2021 6:52 AM CDT) Patholo gist Method Time Signature CROSSMATCH Compatible RH BLOOD BANK UNIT ABO/RH O Neg RH BLOOD BANK Unit Number [id number] RH BLOOD BANK Unit Status Transfused RH BLOOD BANK Blood Red Blood Cells RH BLOOD Component Type BANK Product Code [id number] RH BLOOD BANK CODING SYSTEM [id number] RH BLOOD BANK UNIT TYPE ISBT 9500 RH BLOOD BANK ISSUE DATE AND [id number] RH BLOOD TIME BANK Specimen (Source) Anatomical Collection Method Collection Time Re ceived Time Location / / Volume Laterality 10/09/2021 6:52 AM CDT Dallin Simons MD BLOOD BANK PRODUCT ORDERABLE S Performing Organization Address City/State/ZIP Code Phon e Number RH BLOOD BANK [address] [place] [address] Transfuse red blood cells (unit) No special [...] RESULTS QTc 477 ms RADIOLOGY RESULTS P Rio degrees RADIOLOGY RESULTS R AXIS 107 degrees RADIOLOGY RESULTS T [place] 33 degrees RADIOLOGY RESULTS Interpretation Atrial fibrillation RADIO LOGY ECG Right bundle branch block RESU LTS Abnormal ECG No previous ECGs available Confirmed by - [facility] [place] PHYSICIAN ([id number]), editor producer ANDRÉS HATCH ([id number]) on 10/11/2021 6:42:29 [...] O Neg RH BLOOD BANK Unit Number [id number] RH BLOOD BANK Unit Status Transfused RH BLOOD BANK Blood Red Blood Cells RH BLOOD Component Type BANK Product Code [id number] RH BLOOD BANK CODING SYSTEM [id number] RH BLOOD BANK UNIT TYPE ISBT 9500 RH BLOOD BANK ISSUE DATE AND RH BLOOD TIME BANK Specimen (Source) Anatomical Collection Method Collection Time Re ceived Time Location / / Volume Laterality 10/08/2021 11:46 PM CDT Layne Rossi PA-C BLOOD BANK PRODUCT ORDERABLE S Performing Organization Address City/[facility]/ZIP [facility] Phon e Number RH BLOOD BANK [address] [place] [address] (ABNORMAL) Hemoglobin (10/08/2021 10:47 PM CDT) athologist [...] LAB - BLOOD ORDERABLES Performing Organization Address City/[facility]/ZIP Code Phon e Number [place] [phone] Care Lab [address] [...] City/State/ZIP Code Phon e [place] [address] Care Lab [address] Lab (1st floor, no room number) [...] the Xpert Xpress SARS-CoV-2 Assay on the [employer]. A dditional information about this [...] COVID-19. This test was validated by the [facility]. This laboratory is certified under the Clinical Laboratory Improvement Amendments of 1988 (CLIA-88) as qualified to perform high complexity laboratory testing. Florentino Ragsdale MD LAB - MICRO GENERAL ORDERABL ES Performing Organization Address City/[facility]/ZIP Code [place] [address] Care Lab [address] Lab (1st floor, no room number) [...] LAB - BLOOD ORDERABLES Performing Organization Address City/[facility]/ZIP Code [place] [phone] Care Lab [address] Lab (1st floor, no room number) Extra Red Top Tube (10/08/2021 7:02 PM CDT) athologist [facility] Hold Specimen JIC 10/08/2021 RH LABORATORY 8:18 PM CDT Specimen Anatomical Collection Method / Collection Time Recei annie Time (Source) Location / Volume Laterality Blood STRUCTURE OF RIGHT Venipuncture / 10/08/2021 7:02 09/18 7:10 UPPER LIMB / Unknown PM CDT PM CDT Unknown Florentino Ragsdale MD LAB - BLOOD ORDERABLES Performing Organization Address City/[facility]/ZIP Code [place] [address] Care Lab [address] Lab (1st floor, no room number) [...] STRUCTURE OF RIGHT Venipuncture / 10/08/2021 7:02 07/04/2021 7:10 UPPER LIMB / Unknown PM CDT PM CDT Unknown Floerntino Ragsdale MD LAB - BLOOD ORDERABLES Performing Organization Address City/[facility]/ZIP Code Phon e [place] [address] Care Lab [address] Lab (1st floor, no room number) Adult Type and Screen (10/08/2021 7:02 PM CDT) [facility] [employer] Method Time Signature ABO/RH(D) O NEG 10/08/2021 RH BLOOD 6:39 PM CDT BANK Antibody Negative Negative 10/08/2021 RH BLOOD Screen 6:39 PM CDT BANK SPECIMEN [id number] 10/08/2021 RH BLOOD EXPIRATION 6:39 PM CDT BANK DATE Specimen Anatomical Collection Method / Collection Time Recei annie Time (Source) Location / Volume Laterality Blood STRUCTURE OF RIGHT Venipuncture / 10/08/2021 7:02 09/18 7:10 UPPER LIMB / Unknown PM CDT PM CDT Unknown Florentino Ragsdale MD LAB - BLOOD BANK TEST ORDER Performing Organization Address City/[facility]/ZIP Code Phon e Number RH BLOOD BANK [address] [place] [address] (ABNORMAL) Comprehensive metabolic panel (10/08/2021 7:02 PM CDT) [facility] [employer] Method Time Signature Sodium 136 133 - [...] and gender (Brigette et al., NEJM, DOI: 10.1056/[id number]) Specimen Anatomical Collection Method / Collection Time Recei annie Time (Source) Location / Volume Laterality Blood STRUCTURE OF RIGHT Venipuncture / 10/08/2021 7:02 07/04/2021 7:10 UPPER LIMB / Unknown PM CDT PM CDT Unknown Florentino Ragsdale MD LAB - BLOOD ORDERABLES Performing Organization Address City/State/ZIP Code [place] [address] Care Lab [address] [...] MIN PRN, op ioid reversal, Starting on [place] 10/10/21 at 1011, Administer intravenous route when [...] (New Bag - Provider: Lolly Xavier, OVI) Intravenous, 250 mL, ONCE IN DIALYSIS/CR [...] Units (COMPLETED) 1530 (Given - Provider: Lolly Xavier RN) 4,000 Units, Intravenous, ONCE, On Mon at [...] Rodriguez, RN)1838 (Given - Provider: Aracelis Goldstein, RN) 3 mL, Intracatheter, EVERY 8 HOURS, [...] Eugene Sherman RN)0715 (Stopped - Provider: Kaylee Trejo RN) 8 mg/hr (10 mL/hr), Intravenous, CONTINU [...] (COMPLETED) 1533 (Given - Provider: Lolly Xavier, RN) 0.5 mL, Intradermal, ONCE PRN, WITHIN [...] MIN PRN, op ioid reversal, Starting on [place] 10/10/21 at 1011, Administer intravenous route when [...] 2 MIN PRN, opioid reversal, Starting on [place] 10/10/21 at 1011, Administer intramuscular if an [...] 0143 documented in this encounter Care Teams Gynecological Assistant Relationship Specialty Start Date End Date Liban Leos PCP - General Family Medicine 10/08/21 [address] [place] [address] Ernie Pompa MD MD Nephrology 10/08/21 [address] [place], [place] [id number] documented as of this encounter
--- OUTSIDE RECORDS SUMMARY | 2022-01-04 06:42 | XMS_ITS | Encounter Summary ---
:1945 Author Organization [facility] Address [address] [place] [address] Care Team Providers Name Role Phone Unavailable Primary Care Provider Unavailable Encounter Details Date Type Department Care Team Description 10/13/2021 Treatment [facility] Ernie Guzmán MD [address] [place] [address] [place], [place] [phone] (Wo rk) Social History Tobacco Use Types Packs/Day Years Used Date Smoking Tobacco: Unknown Comments: Smoking History Info:Patient n ot screened Sex Assigned at Date Recorded Not on file documented as of this encounter Miscellaneous Notes Dialysis Note - Ernie Pompa MD - 10/13/2021 12:07 PM CDT Date: Oct 13, 2021 Patient Name: Shaun Ocampo : 1945 Chart #: [id number] Sex: M This patient was personally seen for a basic visit as part of routine weekly dialysis care. A reviewof the dialysis treatment, blood pressure, estimated dry weight and recent lab values was made. These were discussed with the patient and staff as necessary. CONCRETE BLOCK MAKER: Ernie Pompa MD LOCATION: [phone] SCHEDULE: M-W-F 2nd Shift ACCESS: EDW: kg. DIALYZER: HD DURATION: NEEDLE SIZE: ANTICOAG: BATH: QB: ml/min QD: ml/min Subjective Tolerating dialysis well. 10/13: Had GI bleeding on Monday, went to ER after dialysis, admitted at [facility], had 3u blood, EGDwithout obvious [...] and do periodic extra UF treatments at [facility] rather than risk more hypotension post-tx with use of midodrine and additional UF during treatments. He has fistulagram last week, went well and access working well since. 08/11: Continues to have problems with fluid gains. we have spent considerable time discussing this, he is trying to work on this but can't seem to avoid large gains. Will go to [facility] for UF tomorrow, needs extra treatments every 2 weeks it looks like to maintain EDW. He does get SOB when >5K over dry weight in particular. 07/21/21: Continues to struggle with fluid gains, extra UF run scheduled tomorrow at [facility]. He does feel more SOB when fluid overloaded. No new symptoms otherwise, he is enjoying the nicer weather which allows him to do more activity and not sit at home and drink fluids which he thinks will help with IDWG's. 07/14/21: Continues to have high gains, unfortunately [facility] without staff to open tomorrow for extra [...] improving. Fluid gains continue to be high, [facility] not open on this week, says he will do his best withlimiting salt/fluid. HE does feel SOB with exertion with extra fluid on, no orthopnea. 05/26/21: Has SOB when >5 Kg over dry weight, extra run last week at [facility] helped. Trying his best with fluid restriction. [...] extra run and we discussed going to [facility] tomorrow for UF only run and he [...] again today, may need extra run at [facility] if can't get down over next week. 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 06/10: Doing well overall, no new complaints, [...] to Urgent care -> ER in [place] yesterday,CT with R hydro but no obstructive [...] He had infiltration last week, dialyzed at [facility] on Sat and went well, access [...] (08/20/21) Vascular Access Assessment: Type of access: [id number] Surgeon - Lary GARDNER 08/2021: fistulagram at [facility] with angioplasty of stenosis completed Impression and [...] Name: Shaun Ocampo : 1945 Chart #: [id number] Sex: M Patient has transitioned out of the following type of facility within the past 30 days: Discharging Facility: [facility] Patient caregiver is present? If yes, [...]
--- OUTSIDE RECORDS SUMMARY | 2022-01-04 06:42 | XMS_ITS | Encounter Summary ---
:1945 Author Organization [facility] Address [address] [place] [address] Care Team Providers Name Role Phone Unavailable Primary Care Provider Unavailable Encounter Details Date Type Department Care Team Description 10/27/2021 Orders [facility] f Ernie Guzmán MD [phone] [place] [address] [place], [place] [phone] (Wo rk) Social History Tobacco Use [...] 10/28/2021 Unless otherwise specified, test(s) performed at: [facility], [address] [place] [address], [place] [address] JAVA WEBSPHERE DEVELOPER: Alhaji Noguera M.D., Ph.D For any questions, [...] 10/28/2021 Unless otherwise specified, test(s) performed at: [facility], [address] [place] [address] [place] [address] JAVA WEBSPHERE DEVELOPER: Alhaji Noguera M.D., Ph.D For any questions, please call customer service at FREQUENCY:OTHER Resulting Agency Comment Specimen source: Blood Ernie Pompa MD LAB BLOOD ORDERABLES Performing Organization Address City/[facility] Phon e Number APS SPECTRA [facility] documented in this encounter Visit Diagnoses Not on filedocumented in this encounter
--- OUTSIDE RECORDS SUMMARY | 2022-01-04 06:42 | XMS_ITS | Encounter Summary ---
:1945 Author Organization [facility] Address [address] [place] [address] Care Team Providers Name Role Phone Unavailable Primary Care Provider Unavailable Encounter Details Date Type Department Care Team Description 11/10/2021 Treatment [facility] f Ernie Guzmán MD [address] [place] [address] [place], [place] [phone] (Wo rk) Social History Tobacco Use Types Packs/Day Years Used Date Smoking Tobacco: Unknown Comments: Smoking History Info:Patient n ot screened Sex Assigned at Date Recorded Not on file documented as of this encounter Miscellaneous Notes Dialysis Note - Ernie Pompa MD - 11/10/2021 11:27 AM CDT Date: Nov 10, 2021 Patient Name: Shaun Ocampo : 1945 Chart #: [id number] Sex: M This patient was personally seen [...] AM ) BP (sit): 111/39 AP(-) / LABORER VINEYARD: 195/161 Pulse: 62 Chairside data as of [...] 08/27/2021 05/28/2021 04/23/2021 Access Flow [id number] Treatment Medication Orders Medication Sig Start Date [...] mcg IVP Every 2 weeks 10/27/2021 10/26/2022 HANDBAG OPERATOR: Ernie Pompa MD LOCATION: [phone] SCHEDULE: -- 2nd Shift ACCESS: EDW: kg. [...] after extra UF run last week at [facility]. BP adequate, challengingEDW today. His breathing is improved. Also went to wound care clinic at [facility] and they dressedwounds and he has follow-up and instructions for dressings and cares. He has no new symptoms and otherwise feels well. 10/13: Had GI bleeding on Monday, went to ER after dialysis, admitted at [facility], had 3u blood, EGDwithout obvious source, [...] and do periodic extra UF treatments at [facility] rather than risk more hypotension post-tx with use of midodrine and additional UF during treatments. He has fistulagram last week, went well and access working well since. 08/11: Continues to have problems with fluid gains. we have spent considerable time discussing this, he is trying to work on this but can't seem to avoid large gains. Will go to [facility] for UF tomorrow, needs extra treatments every 2 weeks it looks like to maintain EDW. He does get SOB when >5K over dry weight in particular. 07/21/21: Continues to struggle with fluid gains, extra UF run scheduled tomorrow at [facility]. He does feel more SOB when fluid overloaded. No new symptoms otherwise, he is enjoying the nicer weather which allows him to do more activity and not sit at home and drink fluids which he thinks will help with IDWG's. 07/14/21: Continues to have high gains, unfortunately [facility] without staff to open tomorrow for extra [...] improving. Fluid gains continue to be high, [facility] not open on this week, says he will do his best withlimiting salt/fluid. HE does feel SOB with exertion with extra fluid on, no orthopnea. 05/26/21: Has SOB when >5 Kg over dry weight, extra run last week at [facility] helped. Trying his best with fluid restriction. [...] He had extra run prior to [facility] and ran [facility] that week an [...] run and we discussed going to [facility] tomorrow for UF only run and he [...] today, may need extra run at [facility] if can't get down over next week. 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 06/10: Doing well overall, no new complaints, [...] Went to Urgent care -> ER in [place] yesterday,CT with R hydro but no obstructive [...] (09/13/21) Vascular Access Assessment: Type of access: [id number]/[email or web address] Surgeon - Lary KUMARW 08/2021: fistulagram at [facility] [place] with angioplasty of stenosis completed Impression and [...]
--- OUTSIDE RECORDS SUMMARY | 2022-01-04 06:43 | XMS_ITS | Encounter Summary ---
:1945 Author Organization [facility] Address [address] [place] [address] Care Team Providers Name Role Phone Unavailable Primary Care Provider Unavailable Encounter Details Date Type Department Care Team Description 09/29/2021 Orders [facility] f Ernie Guzmán MD [address] [place] [address] [place], [place] [phone] (Wo rk) Social History Tobacco Use [...] 09/30/2021 Unless otherwise specified, test(s) performed at: [facility], [address] [place] [address], [place] [address] PSYCHOLOGY PROFESSOR: Alhaji Noguera M.D., Ph.D For any questions, [...] 09/30/2021 Unless otherwise specified, test(s) performed at: [facility], [address] [place], [place] [address]francisca [place] [address] PSYCHOLOGY PROFESSOR: Alhaji Noguera M.D., Ph.D For any questions, please call customer service at FREQUENCY:OTHER Resulting Agency Comment Specimen source: Blood Ernie Pompa MD LAB BLOOD ORDERABLES Performing Organization Address City/[facility] Code Phon e Number APS SPECTRA [facility] documented in this encounter Visit Diagnoses Not on filedocumented in this encounter
--- OUTSIDE RECORDS SUMMARY | 2022-01-04 06:43 | XMS_ITS | Encounter Summary ---
:1945 Author Organization [facility] Address [address] [place] [address] Care Team Providers Name Role Phone Unavailable Primary Care Provider Unavailable Encounter Details Date Type Department Care Team Description 08/11/2021 Orders [facility] f Ernie Guzmán MD [address] [place] [address] [place], [place] [phone] (Wo rk) Social History Tobacco Use [...] 08/12/2021 Unless otherwise specified, test(s) performed at: [facility], [address] [place] [address] PARAMEDIC: Alec Payan M.D. For any questions, please call customer service at FREQUENCY:OTHER Resulting Agency Comment Specimen source: Blood Ernie Pompa MD LAB BLOOD ORDERABLES Performing Organization Address City/State/ZIP Code Phon e Number APS SPECTRA [facility] documented in this encounter Visit Diagnoses Not on filedocumented in this encounter
--- OUTSIDE RECORDS SUMMARY | 2022-01-04 06:43 | XMS_ITS | Encounter Summary ---
:1945 Author Organization [facility] Address [address] [place] [address] Care Team Providers Name Role Phone Unavailable Primary Care Provider Unavailable Encounter Details Date Type Department Care Team Description 08/25/2021 Treatment [facility] f Ernie Guzmán MD [address] [place] [address] [place], [place] [phone] (Wo rk) Social History Tobacco Use Types Packs/Day Years Used Date Smoking Tobacco: Unknown Comments: Smoking History Info:Patient n ot screened Sex Assigned at Date Recorded Not on file documented as of this encounter Miscellaneous Notes Dialysis Note - Ernie Pompa MD - 08/25/2021 10:16 AM CDT Date: Aug 25, 2021 Patient Name: Shaun Ocampo : 1945 Chart #: [id number] Sex: M This patient was personally seen [...] AM ) BP (sit): 118/41 AP(-) / SEARCH MARKETING COORDINATOR: 171/153 Pulse: 69 Chairside data as of [...] mcg IVP Every 2 weeks 08/25/2021 08/24/2022 BUTTON FACING MACHINE OPERATOR: Ernie Pompa MD LOCATION: [phone] SCHEDULE: -- 2nd Shift EDW: kg. 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 06/10: Doing well overall, no new complaints, [...] Went to Urgent care -> ER in [place] yesterday,CT with R hydro but no obstructive [...] prescription. Vascular Access Assessment Type of access: [id number]/2019 Surgeon - Lary GARDNER 08/2021: fistulagram at [facility] with angioplasty of stenosis completed Anemia [...] at goal. Intact PTH is above goal. [employer] will adjust binders and vitamin D per [...] maintain euvolemia, extra UF run planned at [facility] when they areopen either tomorrow or next week on Transplant Status: Patient is not a candidate. Weight, co-morbidities, age Resuscitation Status Stable dialysis, no changes to prescription Extra UF run at [facility] Continue work on lower IDWG's Titrate Vit [...]
--- OUTSIDE RECORDS SUMMARY | 2022-01-04 06:43 | XMS_ITS | Encounter Summary ---
:1945 Author Organization [facility] Address [address] [place] [address] Care Team Providers Name Role Phone Unavailable Primary Care Provider Unavailable Encounter Details Date Type Department Care Team Description 09/13/2021 Orders [facility] f Ernie Guzmán MD [address] [place] [address] [place], [place] [phone] (Wo rk) Social History Tobacco Use [...] 09/14/2021 Unless otherwise specified, test(s) performed at: [facility], [address] [place] [address] PROPOSAL ENGINEER: Alec Payan M.D. For any questions, [...] 09/14/2021 Unless otherwise specified, test(s) performed at: [facility], [address] [place] [address] PROPOSAL ENGINEER: Alec Payan M.D. For any questions, please call customer service at FREQUENCY:OTHER Resulting Agency Comment Specimen source: Plasma Ernie Pompa MD LAB BLOOD ORDERABLES Performing Organization Address City/[facility]/ZIP Code Phon e Number APS SPECTRA [facility] documented in this encounter Visit Diagnoses Not on filedocumented in this encounter
--- OUTSIDE RECORDS SUMMARY | 2022-01-04 06:43 | XMS_ITS | Encounter Summary ---
:1945 Author Organization [facility] Address [address] [place] [address] Care Team Providers Name Role Phone Unavailable Primary Care Provider Unavailable Encounter Details Date Type Department Care Team Description 06/09/2021 Treatment [facility] f Ernie Guzmán MD [address] [place] [address] [place], [place] [phone] (Wo rk) Social History Tobacco Use Types Packs/Day Years Used Date Smoking Tobacco: Unknown Comments: Smoking History Info:Patient n ot screened Sex Assigned at Date Recorded Not on file documented as of this encounter Miscellaneous Notes Dialysis Note - Ernie Pompa MD - 06/09/2021 10:34 AM CDT Date: Jun 09, 2021 Patient Name: Shaun Ocampo : 1945 Chart #: [id number] Sex: M This patient was personally seen [...] AM ) BP (sit): 115/55 AP(-) / DAY LIGHT RELIEF OPERATOR: 161/150 Pulse: 67 Chairside data as [...] mcg IVP Every 2 weeks 06/09/2021 06/08/2022 TWIST PACKER: Ernie Pompa MD LOCATION: [phone] SCHEDULE: -- 2nd Shift ACCESS: EDW: kg. [...] improving. Fluid gains continue to be high, [facility] not open on this week, says he will do his best withlimiting salt/fluid. HE does feel SOB with exertion with extra fluid on, no orthopnea. 05/26/21: Has SOB when >5 Kg over dry weight, extra run last week at [facility] helped. Trying his best with fluid restriction. [...] extra run and we discussed going to [facility] tomorrow for UF only run and he [...] again today, may need extra run at [facility] if can't get down over next week. 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 06/10: Doing well overall, no new complaints, [...] Went to Urgent care -> ER in [place] yesterday,CT with R hydro but no obstructive [...] He had infiltration last week, dialyzed at [facility] on Sat and went well, [...] (05/05/21) Vascular Access Assessment: Type of access: [email or web address]/2019 Surgeon - Lary GARDNER Access working well [...]
--- OUTSIDE RECORDS SUMMARY | 2022-01-04 06:43 | XMS_ITS | Encounter Summary ---
:1945 Author Organization [facility] Address [address] [place] [address] Care Team Providers Name Role Phone Unavailable Primary Care Provider Unavailable Encounter Details Date Type Department Care Team Description 06/09/2021 Orders [facility] O f Ernie Guzmán MD [address] [place] [address] [place], [place] [phone] (Wo rk) Social History Tobacco Use [...] 06/10/2021 Unless otherwise specified, test(s) performed at: [facility], [address] [place] [address] BARK PEELER: Alec Payan M.D. For any questions, please call customer service at FREQUENCY:OTHER Resulting Agency Comment Specimen source: Blood Ernie Pompa MD LAB BLOOD ORDERABLES Performing Organization Address City/State/ZIP Code Phon e Number APS SPECTRA [facility] documented in this encounter Visit Diagnoses Not on filedocumented in this encounter
--- OUTSIDE RECORDS SUMMARY | 2022-01-04 06:43 | XMS_ITS | Encounter Summary ---
:1945 Author Organization [facility] Address [address] [place] [address] Care Team Providers Name Role Phone Unavailable Primary Care Provider Unavailable Encounter Details Date Type Department Care Team Description 05/26/2021 Orders [facility] O f Ernie Guzmán MD [address] [place] [address] [place], [place] [phone] (Wo rk) Social History Tobacco Use [...] / Volume Laterality 05/26/2021 05/27/2021 6:19 PM PORTABLE CANTEEN OPERATOR Narrative APS SPECTRA [facility] - 05/28/2021 Unless otherwise specified, test(s) performed at: [facility], [address] [place], [place] [id number] GROUND SUPPORT AGENT: Alec Payan M.D. For any questions, [...] Volume Laterality 05/26/2021 05/27/2021 10:2 3 AM PORTABLE CANTEEN OPERATOR Narrative APS SPECTRA [facility] - 05/27/2021 Unless otherwise specified, test(s) performed at: [facility], [address] [place], [place] [id number] GROUND SUPPORT AGENT: Alec Payan M.D. For any questions, please call customer service at FREQUENCY:OTHER Resulting Agency Comment Specimen source: Plasma Ernie Pompa MD LAB BLOOD ORDERABLES Performing Organization Address City/[facility] Code Phon e Number APS [...] Volume Laterality 05/26/2021 05/27/2021 10:1 9 AM PORTABLE CANTEEN OPERATOR Narrative APS SPECTRA [facility] - 05/27/2021 Unless otherwise specified, test(s) performed at: [facility], [address] [place], [place] [id number] GROUND SUPPORT AGENT: Alec Payan M.D. For any questions, please call customer service at FREQUENCY:OTHER Resulting Agency Comment Specimen source: Blood Ernie Pompa MD LAB BLOOD ORDERABLES Performing Organization Address City/State/ZIP Code Phon e Number APS SPECTRA [facility] documented in this encounter Visit Diagnoses Not on filedocumented in this encounter
--- OUTSIDE RECORDS SUMMARY | 2022-01-04 06:43 | XMS_ITS | Encounter Summary ---
:1945 Author Organization [facility] Address [address] [place] [address] Care Team Providers Name Role Phone Unavailable Primary Care Provider Unavailable Encounter Details Date Type Department Care Team Description 06/02/2021 Orders [facility] O f Ernie Guzmán MD [address] [place] [address] [place], [place] [phone] (Wo rk) Social History Tobacco Use [...] 06/03/2021 Unless otherwise specified, test(s) performed at: [facility], [address] [place] [address] PATIENT FLOW COORDINATOR: Alec Payan M.D. For any questions, please call customer service at FREQUENCY:OTHER Resulting Agency Comment Specimen source: Blood Ernie Pompa MD LAB BLOOD ORDERABLES Performing Organization Address City/State/ZIP Code Phon e Number APS SPECTRA [facility] documented in this encounter Visit Diagnoses Not on filedocumented in this encounter
--- OUTSIDE RECORDS SUMMARY | 2022-01-04 06:43 | XMS_ITS | Encounter Summary ---
:1945 Author Organization [facility] Address [address] [place] [address] Care Team Providers Name Role Phone Unavailable Primary Care Provider Unavailable Encounter Details Date Type Department Care Team Description 07/07/2021 Orders [facility] O f Ernie Guzmán MD [address] [place] [address] [place], [place] [phone] (Wo rk) Social History Tobacco Use [...] 07/10/2021 Unless otherwise specified, test(s) performed at: [facility], [address] [place] [address] MANAGER MASS: Alec Payan M.D. For any questions, please [...] 07/10/2021 Unless otherwise specified, test(s) performed at: [facility], [address] [place], [place] [id number] MANAGER MASS: Alec Payan M.D. For any questions, please call customer service at FREQUENCY:OTHER Resulting Agency Comment Specimen source: Plasma Ernie Pompa MD LAB BLOOD ORDERABLES Performing Organization Address [facility] Phon e Number APS SPECTRA [...] 07/10/2021 Unless otherwise specified, test(s) performed at: [facility], [address] [place] [address] MANAGER MASS: Alec Payan M.D. For any questions, please call customer service at FREQUENCY:OTHER Resulting Agency Comment Specimen source: Blood Ernie Pompa MD LAB BLOOD ORDERABLES Performing Organization Address City/[facility]/ZIP [facility] Phon e Number APS SPECTRA [facility] documented in this encounter Visit Diagnoses Not on filedocumented in this encounter
--- OUTSIDE RECORDS SUMMARY | 2022-01-04 06:43 | XMS_ITS | Encounter Summary ---
:1945 Author Organization [facility] Address [address] [place] [address] Care Team Providers Name Role Phone Unavailable Primary Care Provider Unavailable Encounter Details Date Type Department Care Team Description 09/15/2021 [facility] O f Ernie Guzmán MD [address] [place] [address] [place], [place] [phone] (Wo rk) Social History Tobacco Use [...] 09/16/2021 Unless otherwise specified, test(s) performed at: [facility], [address] [place] [address] TOWBOAT CAPTAIN: Alec Payan M.D. For any questions, please call customer service at FREQUENCY:OTHER Resulting Agency Comment Specimen source: Blood Ernie Pompa MD LAB BLOOD ORDERABLES Performing Organization Address City/State/ZIP Code Phon e Number APS SPECTRA [facility] documented in this encounter Visit Diagnoses Not on filedocumented in this encounter
--- OUTSIDE RECORDS SUMMARY | 2022-01-04 06:43 | XMS_ITS | Encounter Summary ---
:1945 Author Organization [facility] Address [address] [place] [address] Care Team Providers Name Role Phone Unavailable Primary Care Provider Unavailable Encounter Details Date Type Department Care Team Description 07/21/2021 Orders Only [facility] f Ernie Guzmán MD [address] [place] [address] [place], [place] [phone] (Wo rk) Social History Tobacco Use [...] 07/24/2021 Unless otherwise specified, test(s) performed at: [facility], [address] [place] [address] PICKING BELT OPERATOR: Alec Payan M.D. For any questions, [...] 07/24/2021 Unless otherwise specified, test(s) performed at: [facility], [address] [place] [address] PICKING BELT OPERATOR: Alec Payan M.D. For any questions, please call customer service at FREQUENCY:MONTHLY Resulting Agency Comment Specimen source: Serum Ernie Pompa MD LAB BLOOD ORDERABLES Performing Organization Address City/[facility] Phon e Number APS SPECTRA [facility] POST CHEMISTRY (07/21/2021) P athologist Signature BUN Post 14 6 - 19 APS SPECTRA Dialysis mg/dL [facility] Specimen (Source) Anatomical Collection Method Collection Time Re ceived Time Location / / Volume Laterality 07/21/2021 07/23/2021 4:30 PM CDT Narrative APS SPECTRA [facility] - 07/24/2021 Unless otherwise specified, test(s) performed at: [facility], [address] [place] [address] PICKING BELT OPERATOR: Alec Payan M.D. For any questions, please call customer service at FREQUENCY:MONTHLY Resulting Agency Comment Specimen source: Plasma Ernie Pompa MD LAB BLOOD ORDERABLES Performing Organization Address City/[facility] Phon e Number APS SPECTRA [facility] IMMUNO CHEMISTRY (07/21/2021) P athologist Signature Hep B Surface Negative Negative APS SPECTRA Ag [facility] Specimen (Source) Anatomical Collection Method Collection Time Re ceived Time Location / / Volume Laterality 07/21/2021 07/23/2021 12:4 6 PM CDT Narrative APS SPECTRA [facility] - 07/23/2021 Unless otherwise specified, test(s) performed at: [facility], [address] [place] [address] PICKING BELT OPERATOR: Alec Payan M.D. For any questions, [...] 07/23/2021 Unless otherwise specified, test(s) performed at: [facility], [address] [place] [address] PICKING BELT OPERATOR: Alec Payan M.D. For any questions, please call customer service at FREQUENCY:MONTHLY Resulting Agency Comment Specimen source: Blood Ernie Pompa MD LAB BLOOD ORDERABLES Performing Organization Address City/State/ZIP Code Phon e Number APS SPECTRA [facility] documented in this encounter Visit Diagnoses Not on filedocumented in this encounter
--- OUTSIDE RECORDS SUMMARY | 2022-01-04 06:43 | XMS_ITS | Encounter Summary ---
:1945 Author Organization [facility] Address [address] [place] [address] Care Team Providers Name Role Phone Unavailable Primary Care Provider Unavailable Encounter Details Date Type Department Care Team Description 08/11/2021 Treatment [facility] f Ernie Guzmán MD [address] [place] [address] [place], [place] [phone] [phone] (Wo rk) Social History Tobacco Use Types Packs/Day Years Used Date Smoking Tobacco: Unknown Comments: Smoking History Info:Patient n ot screened Sex Assigned at Date Recorded Not on file documented as of this encounter Miscellaneous Notes Dialysis Note - Enrie Pompa MD - 08/11/2021 10:15 AM CDT Date: August 11, 2021 Patient Name: Shaun Ocampo : 1945 Chart #: [id number] Sex: M This patient was personally seen [...] AM ) BP (sit): 97/38 AP(-) / KITCHEN RUNNER: 177/134 Pulse: 67 Chairside data as of [...] 50 mg IVP 1X Week 07/26/2021 07/25/2022 FOREIGN DIPLOMAT: Ernie Pompa MD LOCATION: [phone] SCHEDULE: -- 2nd Shift ACCESS: EDW: kg. DIALYZER: HD DURATION: NEEDLE SIZE: ANTICOAG: BATH: QB: ml/min QD: ml/min Subjective Tolerating dialysis well. 08/11: Continues to have problems with fluid gains. we have spent considerable time discussing this, he is trying to work on this but can't seem to avoid large gains. Will go to [facility] for UF tomorrow, needs extra treatments every 2 weeks it looks like to maintain EDW. He does get SOB when >5K over dry weight in particular. 07/21/21: Continues to struggle with fluid gains, extra UF run scheduled tomorrow at [facility]. He does feel more SOB when fluid overloaded. No new symptoms otherwise, he is enjoying the nicer weather which allows him to do more activity and not sit at home and drink fluids which he thinks will help with IDWG's. 07/14/21: Continues to have high gains, unfortunately [facility] without staff to open tomorrow for extra [...] improving. Fluid gains continue to be high, [facility] not open on this week, says he will do his best withlimiting salt/fluid. HE does feel SOB with exertion with extra fluid on, no orthopnea. 05/26/21: Has SOB when >5 Kg over dry weight, extra run last week at [facility] helped. Trying his best with fluid restriction. [...] extra run and we discussed going to [facility] tomorrow for UF only run and he [...] again today, may need extra run at [facility] if can't get down over next week. 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 06/10: Doing well overall, no new complaints, [...] Went to Urgent care -> ER in [place] yesterday,CT with R hydro but no obstructive [...] (06/23/21) Vascular Access Assessment: Type of access: [id number]/2019 Surgeon - Lary GARDNER Access working well Impression and Plan Stable dialysis overall, no changes to prescription made Parsabiv to continue, calcitriol increase as able with Ca lower on this to get PTH to goal but is improving and phos is controlled Extra UF run tomorrow in [facility], ongoing extra UF runs will likely be necessary with inability toget to EDW consistently Ernie Pompa MD [ Signed And locked electronically On 08/11/2021 at 10:17:39 AM ] Transcribed: Ernie Pompa ( 08/11/2021 ) documented in this encounter Plan of Treatment Not on filedocumented as of this encounter Visit Diagnoses Not on filedocumented in this encounter
--- OUTSIDE RECORDS SUMMARY | 2022-01-04 06:43 | XMS_ITS | Encounter Summary ---
:1945 Author Organization [facility] Address [address] [place] [address] Care Team Providers Name Role Phone Unavailable Primary Care Provider Unavailable Encounter Details Date Type Department Care Team Description 08/30/2021 Orders Only [facility] O f Ernie Guzmán MD [address] [place] [address] [place], [place] [phone] (Wo rk) Social History Tobacco Use [...] 08/31/2021 Unless otherwise specified, test(s) performed at: [facility], [address] [place] [address] MAIL TECHNICIAN: Alec Payan M.D. For any questions, please call customer service at FREQUENCY:OTHER Resulting Agency Comment Specimen source: Serum Ernie Pompa MD LAB BLOOD ORDERABLES Performing Organization Address City/[facility] Phon e Number APS SPECTRA [facility] (ABNORMAL) Spectrae Chemistry (08/30/2021) athologist Signature BUN 55 (H) 6 - 19 APS SPECTRA mg/dL [facility] Specimen (Source) Anatomical Collection Method Collection Time Re ceived Time Location / / Volume Laterality 08/30/2021 08/31/2021 5:11 PM CDT Narrative APS SPECTRA [facility] - 08/31/2021 Unless otherwise specified, test(s) performed at: [facility], [address] [place] [address] MAIL TECHNICIAN: Alec Payan M.D. For any questions, please call customer service at FREQUENCY:OTHER Resulting Agency Comment Specimen source: Serum Ernie Pompa MD LAB BLOOD ORDERABLES Performing Organization Address City/[facility] Phon e Number APS SPECTRA [facility] POST CHEMISTRY (08/30/2021) athologist Signature BUN Post 16 6 - 19 APS SPECTRA Dialysis mg/dL [facility] Specimen (Source) Anatomical Collection Method Collection Time Re ceived Time Location / / Volume Laterality 08/30/2021 08/31/2021 1:52 PM CDT Narrative APS SPECTRA [facility] - 08/31/2021 Unless otherwise specified, test(s) performed at: [facility], [address] [place] [address] MAIL TECHNICIAN: Alec Payan M.D. For any questions, please call customer service at FREQUENCY:OTHER Resulting Agency Comment Specimen source: Plasma Ernie Pompa MD LAB BLOOD ORDERABLES Performing Organization Address City/State/ZIP Code Phon e Number APS SPECTRA [facility] documented in this encounter Visit Diagnoses Not on filedocumented in this encounter
--- OUTSIDE RECORDS SUMMARY | 2022-01-04 06:43 | XMS_ITS | Encounter Summary ---
:1945 Author Organization [facility] Address [address] [place] [address] Care Team Providers Name Role Phone Unavailable Primary Care Provider Unavailable Encounter Details Date Type Department Care Team Description 08/04/2021 Orders Only [facility] O f Ernie Guzmán MD [address] [place] [address] [place], [place] [phone] (Wo rk) Social History Tobacco Use [...] 08/06/2021 Unless otherwise specified, test(s) performed at: [facility], [address] [place] [address] CLOTH PRINTING UTILITY WORKER: Alec Payan M.D. For any questions, [...] 2021 Unless otherwise specified, test(s) performed at: [facility], [address] [place], [place] [id number] CLOTH PRINTING UTILITY WORKER: Alec Payan M.D. For any questions, please call customer service at FREQUENCY:OTHER Resulting Agency Comment Specimen source: Plasma Ernie Pompa MD LAB BLOOD ORDERABLES Performing Organization Address [facility] Phon e Number APS SPECTRA [...] 2021 Unless otherwise specified, test(s) performed at: [facility], [address] [place] [address] CLOTH PRINTING UTILITY WORKER: Alec Payan M.D. For any questions, please call customer service at FREQUENCY:OTHER Resulting Agency Comment Specimen source: Blood Ernie Pompa MD LAB BLOOD ORDERABLES Performing Organization Address City/[facility] Phon e Number APS SPECTRA [facility] documented in this encounter Visit Diagnoses Not on filedocumented in this encounter
--- OUTSIDE RECORDS SUMMARY | 2022-01-04 06:43 | XMS_ITS | Encounter Summary ---
:1945 Author Organization [facility] Address [address] [place] [address] Care Team Providers Name Role Phone Unavailable Primary Care Provider Unavailable Encounter Details Date Type Department Care Team Description 07/14/2021 Treatment [facility] f Ernie Guzmán MD [address] [place] [address] [place], [place] [phone] (Wo rk) Social History Tobacco Use Types Packs/Day Years Used Date Smoking Tobacco: Unknown Comments: Smoking History Info:Patient n ot screened Sex Assigned at Date Recorded Not on file documented as of this encounter Miscellaneous Notes Dialysis Note - Ernie Pompa MD - 07/14/2021 9:22 AM CDT Date: Jul 14, 2021 Patient Name: Shaun Ocampo : 1945 Chart #: [id number] Sex: M This patient was personally seen [...] AM ) BP (sit): 99/43 AP(-) / PRECAST WORKER: 152/133 Pulse: 67 Chairside data as of [...] mcg IVP Every 4 weeks 06/23/2021 06/22/2022 CREDIT ASSISTANT: Ernie Pompa MD LOCATION: [place] [phone] SCHEDULE: -- 2nd Shift ACCESS: EDW: kg. DIALYZER: HD DURATION: NEEDLE SIZE: ANTICOAG: BATH: QB: ml/min QD: ml/min Subjective Tolerating dialysis well. 07/14/21: Continues to have high gains, unfortunately [facility] without staff to open tomorrow for extra [...] improving. Fluid gains continue to be high, [facility] not open on this week, says he will do his best withlimiting salt/fluid. HE does feel SOB with exertion with extra fluid on, no orthopnea. 05/26/21: Has SOB when >5 Kg over dry weight, extra run last week at [facility] helped. Trying his best with fluid restriction. [...] extra run and we discussed going to [facility] tomorrow for UF only run and he [...] again today, may need extra run at [facility] if can't get down over next week. 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 06/10: Doing well overall, no new [...] Went to Urgent care -> ER in [place] yesterday,CT with R hydro but no obstructive [...] He had infiltration last week, dialyzed at [facility] on Sat and went well, [...] (05/26/21) Vascular Access Assessment: Type of access: [id number] Surgeon - Lary GARDNER Access working well [...] to go further to get this as [facility] not open but he doesn't feel he can drive that far Ernie Pompa MD [ Signed And locked electronically On 07/14/2021 at 09:24:45 AM ] Transcribed: Ernie Pompa ( 07/14/2021 ) documented in this encounter Plan of Treatment Not on filedocumented as of this encounter Visit Diagnoses Not on filedocumented in this encounter
--- OUTSIDE RECORDS SUMMARY | 2022-01-04 06:43 | XMS_ITS | Encounter Summary ---
:1945 Author Organization [facility] Address [address] [place] [address] Care Team Providers Name Role Phone Unavailable Primary Care Provider Unavailable Encounter Details Date Type Department Care Team Description 09/08/2021 Orders Only [facility] O f Ernie Guzmán MD [address] [place] [address] [place], [place] [phone] (Wo rk) Social History Tobacco Use [...] 09/09/2021 Unless otherwise specified, test(s) performed at: [facility], [address] [place] [address] ANODIZER: Alec Payan M.D. For any questions, please call customer service at FREQUENCY:OTHER Resulting Agency Comment Specimen source: Blood Ernie Pompa MD LAB BLOOD ORDERABLES Performing Organization Address City/State/ZIP Code Phon e Number APS SPECTRA [facility] documented in this encounter Visit Diagnoses Not on filedocumented in this encounter
--- OUTSIDE RECORDS SUMMARY | 2022-01-04 06:43 | XMS_ITS | Encounter Summary ---
:1945 Author Organization [facility] Address [address] [place] [address] Care Team Providers Name Role Phone Unavailable Primary Care Provider Unavailable Encounter Details Date Type Department Care Team Description 09/01/2021 Orders Only [facility] O f Ernie Guzmán MD [phone] [place] [address] [place], [place] [phone] (Wo rk) Social History Tobacco Use [...] 09/03/2021 Unless otherwise specified, test(s) performed at: [facility], [address] [place] [address] MOTOR ANALYST: Alec Payan M.D. For any questions, please call customer service at FREQUENCY:OTHER Resulting Agency Comment Specimen source: Serum Ernie Pompa MD LAB BLOOD ORDERABLES Performing Organization Address City/[facility] Phon e Number APS SPECTRA [facility] (ABNORMAL) [...] 09/02/2021 Unless otherwise specified, test(s) performed at: [facility], [address] [place] [address] MOTOR ANALYST: Alec Payan M.D. For any questions, please call customer service at FREQUENCY:OTHER Resulting Agency Comment Specimen source: Blood Ernie Pompa MD LAB BLOOD ORDERABLES Performing Organization Address City/[facility] Phon e Number APS SPECTRA [facility] documented in this encounter Visit Diagnoses Not on filedocumented in this encounter
--- OUTSIDE RECORDS SUMMARY | 2022-01-04 06:43 | XMS_ITS | Encounter Summary ---
:1945 Author Organization [facility] Address [address] [place] [address] Care Team Providers Name Role Phone Unavailable Primary Care Provider Unavailable Encounter Details Date Type Department Care Team Description 07/28/2021 Orders Only [facility] O f Ernie Guzmán MD [address] [place] [address] [place], [place] [phone] (Wo rk) Social History Tobacco Use [...] in this encounter Results (ABNORMAL) HEMATOLOGY (07/28/2021) [facility] gist Method Time Signature Hemoglobin 9.9 [...] 07/29/2021 Unless otherwise specified, test(s) performed at: [facility], [address] [place] [address] EQUINE PHARMACOLOGY TECHNICIAN: Alec Payan M.D. For any questions, please call customer service at FREQUENCY:OTHER Resulting Agency Comment Specimen source: Blood Ernie Pompa MD LAB BLOOD ORDERABLES Performing Organization Address City/State/ZIP Code Phon e Number APS SPECTRA [facility] documented in this encounter Visit Diagnoses Not on filedocumented in this encounter
--- OUTSIDE RECORDS SUMMARY | 2022-01-04 06:43 | XMS_ITS | Encounter Summary ---
:1945 Author Organization [facility] Address [address] [place] [address] Care Team Providers Name Role Phone Unavailable Primary Care Provider Unavailable Encounter Details Date Type Department Care Team Description 06/30/2021 Treatment [facility] f Ernie Guzmán MD [address] [place] [address] [place], [place] [address] [phone] (Wo rk) Social History Tobacco Use Types Packs/Day Years Used Date Smoking Tobacco: Unknown Comments: Smoking History Info:Patient n ot screened Sex Assigned at Date Recorded Not on file documented as of this encounter Miscellaneous Notes Dialysis Note - Ernie Pompa MD - 06/30/2021 11:03 AM CDT Date: Jun 30, 2021 Patient Name: Shaun Ocampo : 1945 Chart #: [id number] Sex: M This patient was personally seen [...] AM ) BP (sit): 100/42 AP(-) / TORCH STRAIGHTENER AND HEATER: 167/131 Pulse: 78 Chairside data as of [...] 05/28/2021 04/23/2021 04/02/2021 Access Flow [id number] Treatment Medication Orders Medication Sig Start Date [...] mcg IVP Every 4 weeks 06/23/2021 06/22/2022 NETWORK ANNOUNCER: Ernie Pompa MD [address]ATION: [phone] SCHEDULE: -- 2nd Shift EDW: kg. DIALYZER: [...] improving. Fluid gains continue to be high, [facility] not open on this week, says he will do his best withlimiting salt/fluid. HE does feel SOB with exertion with extra fluid on, no orthopnea. 05/26/21: Has SOB when >5 Kg over dry weight, extra run last week at [facility] helped. Trying his best with fluid restriction. 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 06/10: Doing well overall, no new complaints, [...] Went to Urgent care -> ER in [place] yesterday,CT with R hydro but no [...] prescription. Vascular Access Assessment Type of access: [id number]/2019 Surgeon Annita KUMARW Access working well Anemia [...] at goal. Intact PTH is above goal. Floorwalker will adjust binders and vitamin D per [...] to prescription Extra UF run tomorrow at [facility] Continue work on lower IDWG's Ernie Pompa MD [ Signed And locked electronically On 06/30/2021 at 11:05:31 AM ] Transcribed: Ernie Pompa ( 06/30/2021 ) documented in this encounter Plan of Treatment Not on filedocumented as of this encounter Visit Diagnoses Not on filedocumented in this encounter
--- OUTSIDE RECORDS SUMMARY | 2022-01-04 06:43 | XMS_ITS | Encounter Summary ---
:1945 Author Organization [facility] Address [address] [place] [address] Care Team Providers Name Role Phone Unavailable Primary Care Provider Unavailable Encounter Details Date Type Department Care Team Description 06/23/2021 Orders Only [facility] O f Ernie Guzmán MD [address] [place] [address] [place], [place] [phone] (Wo rk) Social History Tobacco Use [...] Provider LAB BLOOD ORDERABLES Performing Organization Address City/[facility]/ZIP Code Phon e Number [place] (ABNORMAL) [...] 06/28/2021 Unless otherwise specified, test(s) performed at: [facility], [address] [place], [place] [address] BUSINESS INTELLIGENCE ADMINISTRATOR: Alec Payan M.D. For any questions, please call customer service at FREQUENCY:MONTHLY Resulting Agency Comment Specimen source: Blood Ernie Pompa MD LAB BLOOD ORDERABLES Performing Organization Address City/[facility]/ZIP Code Phon e Number APS SPECTRA [facility] HD KINETICS (06/23/2021) P athologist Signature % Urea 71 65 - 80 % APS SPECTRA Reduction [facility] Specimen (Source) Anatomical Collection Method Collection Time Re ceived Time Location / / Volume Laterality 06/23/2021 06/28/2021 12:3 1 PM CDT Resulting Agency Comment Specimen source: Plasma Ernie Pompa MD LAB BLOOD ORDERABLES Performing Organization Address City/[facility]/ZIP Code Phon e Number APS SPECTRA [facility] POST CHEMISTRY (06/23/2021) P athologist Signature BUN Post 19 6 - 19 APS SPECTRA Dialysis mg/dL [facility] Specimen (Source) Anatomical Collection Method Collection Time Re ceived Time Location / / Volume Laterality 06/23/2021 06/28/2021 12:3 1 PM CDT Narrative APS SPECTRA [facility] - 06/28/2021 Unless otherwise specified, test(s) performed at: [facility], [address] [place] [address] BUSINESS INTELLIGENCE ADMINISTRATOR: Alec Payan, M.D. For any questions, please [...] 06/28/2021 Unless otherwise specified, test(s) performed at: [facility], [address] [place] [address] BUSINESS INTELLIGENCE ADMINISTRATOR: Alec Payan M.D. For any questions, please call customer service at FREQUENCY:MONTHLY Resulting Agency Comment Specimen source: Serum Ernie Pompa MD LAB BLOOD ORDERABLES Performing Organization Address City/[facility] Phon e Number APS SPECTRA [facility] (ABNORMAL) Spectrae Chemistry (06/23/2021) P athologist Signature PTH 1,243 (H) 16 - 80 APS SPECTRA pg/mL [facility] Specimen (Source) Anatomical Collection Method Collection Time Re ceived Time Location / / Volume Laterality 06/23/2021 06/28/2021 10:1 5 AM CDT Narrative APS SPECTRA [facility] - 06/28/2021 Unless otherwise specified, test(s) performed at: [facility], [address] [place] [address] BUSINESS INTELLIGENCE ADMINISTRATOR: Alec Payan M.D. For any questions, please call customer service at FREQUENCY:MONTHLY Resulting Agency Comment Specimen source: Plasma Ernie Pompa MD LAB BLOOD ORDERABLES Performing Organization Address City/[facility] Code Phon e Number APS SPECTRA [facility] documented in this encounter Visit Diagnoses Not on filedocumented in this encounter
--- OUTSIDE RECORDS SUMMARY | 2022-01-04 06:43 | XMS_ITS | Encounter Summary ---
:1945 Author Organization [facility] Address [address] [place] [address] Care Team Providers Name Role Phone Unavailable Primary Care Provider Unavailable Encounter Details Date Type Department Care Team Description 07/14/2021 Orders Only [facility] O f Ernie Guzmán MD [address] [place] [address] [place], [place] [phone] (Wo rk) Social History Tobacco Use [...] 07/15/2021 Unless otherwise specified, test(s) performed at: [facility], [address] [place] [address] LEVEL GLASS FORMING MACHINE OPERATOR: Alec Payan M.D. For any questions, please call customer service at FREQUENCY:OTHER Resulting Agency Comment Specimen source: Blood Ernie Pompa MD LAB BLOOD ORDERABLES Performing Organization Address City/State/ZIP Code Phon e Number APS SPECTRA [facility] documented in this encounter Visit Diagnoses Not on filedocumented in this encounter
--- OUTSIDE RECORDS SUMMARY | 2022-01-04 06:43 | XMS_ITS | Encounter Summary ---
:1945 Author Organization [facility] Address [address] [place] [address] Care Team Providers Name Role Phone Unavailable Primary Care Provider Unavailable Encounter Details Date Type Department Care Team Description 06/30/2021 Orders Only [facility] f Ernie Guzmán MD [phone] [place] [address] [place], [place] [phone] (Wo rk) Social History Tobacco Use [...] 07/01/2021 Unless otherwise specified, test(s) performed at: [facility], [address] [place] [address] REEL CART OPERATOR: Alec Payan M.D. For any questions, please call customer service at FREQUENCY:OTHER Resulting Agency Comment Specimen source: Blood Ernie Pompa MD LAB BLOOD ORDERABLES Performing Organization Address City/State/ZIP Code Phon e Number [facility] documented in this encounter Visit Diagnoses Not on filedocumented in this encounter
--- OUTSIDE RECORDS SUMMARY | 2022-01-04 06:43 | XMS_ITS | Encounter Summary ---
:1945 Author Organization [facility] Address [address] [place] [address] Care Team Providers Name Role Phone Unavailable Primary Care Provider Unavailable Encounter Details Date Type Department Care Team Description 08/18/2021 [facility] f Ernie Guzmán MD [phone] [place] [address] [place], [place] [phone] (Wo rk) Social History Tobacco Use [...] Provider LAB BLOOD ORDERABLES Performing Organization Address City/[facility]/ZIP Code Phon e Number [facility] (08/18/2021) P athologist Signature % Urea 67 65 - 80 % APS SPECTRA Reduction [facility] Specimen (Source) Anatomical Collection Method Collection Time Re ceived Time Location / / Volume Laterality 08/18/2021 08/20/2021 12:5 8 AM CDT Resulting Agency Comment Specimen source: Plasma Ernie Pompa MD LAB BLOOD ORDERABLES Performing Organization Address [facility]/ZIP Code Phon e Number [facility] POST CHEMISTRY (08/18/2021) P athologist Signature BUN Post 17 6 - 19 APS SPECTRA Dialysis mg/dL [facility] Specimen (Source) Anatomical Collection Method Collection Time Re ceived Time Location / / Volume Laterality 08/18/2021 08/20/2021 12:5 8 AM CDT Narrative [facility]PS [facility] - 08/20/2021 Unless otherwise specified, test(s) performed at: [facility], [address] [place] [address] TILE PROFESSIONAL: Alec Payan M.D. For any questions, [...] 08/20/2021 Unless otherwise specified, test(s) performed at: [facility], [address] [place] [address] TILE PROFESSIONAL: Alec Payan M.D. For any questions, please call customer service at FREQUENCY:MONTHLY Resulting Agency Comment Specimen source: Blood Ernie Pompa MD LAB BLOOD ORDERABLES Performing Organization Address City/[facility] Phon e Number [facility]PS SPECTRA [facility] (ABNORMAL) Spectrae Chemistry (08/18/2021) P athologist Signature PTH 766 (H) 16 - 80 APS SPECTRA pg/mL [facility] Specimen (Source) Anatomical Collection Method Collection Time Re ceived Time Location / / Volume Laterality 08/18/2021 08/19/2021 8:21 PM CDT Narrative [facility]PS [facility]RA [facility] - 08/20/2021 Unless otherwise specified, test(s) performed at: [facility], [address] [place] [address] TILE PROFESSIONAL: Alec Payan M.D. For any questions, please call customer service at FREQUENCY:MONTHLY Resulting Agency Comment Specimen source: Plasma Ernie Pompa MD LAB BLOOD ORDERABLES Performing Organization Address City/[facility] Phon e Number APS SPECTRA [...] 08/20/2021 Unless otherwise specified, test(s) performed at: [facility], [address] [place] [address] TILE PROFESSIONAL: Alec Payan M.D. For any questions, [...] 08/19/2021 Unless otherwise specified, test(s) performed at: [facility], [address] [place] [address] TILE PROFESSIONAL: Alec Payan M.D. For any questions, please call customer service at FREQUENCY:MONTHLY Resulting Agency Comment Specimen source: Serum Ernie Pompa MD LAB BLOOD ORDERABLES Performing Organization Address City/State/ZIP Code Phon e Number [facility] documented in this encounter Visit Diagnoses Not on filedocumented in this encounter
--- OUTSIDE RECORDS SUMMARY | 2022-01-04 06:43 | XMS_ITS | Encounter Summary ---
:1945 Author Organization [facility] Address [address] [place] [address] Care Team Providers Name Role Phone Unavailable Primary Care Provider Unavailable Encounter Details Date Type Department Care Team Description 07/21/2021 Treatment [facility] f Ernie Guzmán MD [address] [place] [address] [place], [place] [phone] (Wo rk) Social History Tobacco Use Types Packs/Day Years Used Date Smoking Tobacco: Unknown Comments: Smoking History Info:Patient n ot screened Sex Assigned at Date Recorded Not on file documented as of this encounter Miscellaneous Notes Dialysis Note - Ernie Pompa MD - 07/21/2021 9:02 AM CDT Date: July 21, 2021 Patient Name: Shaun Ocampo : 1945 Chart #: [id number] Sex: M This patient was personally seen [...] AM ) BP (sit): 112/56 AP(-) / PLASTICS PROCESS HAND: 158/144 Pulse: 77 Chairside data as of [...] mcg IVP Every 2 weeks 07/21/2021 07/20/2022 CAREGIVER ASSISTED LIVING: Ernie Pompa MD LOCATION: [place] [phone] SCHEDULE: -W- 2nd Shift EDW: kg. DIALYZER: HD DURATION: NEEDLE SIZE: ANTICOAG: BATH: QB: ml/min QD: ml/min Subjective Tolerating dialysis well. 07/21/21: Continues to struggle with fluid gains, extra UF run scheduled tomorrow at [place]. He does feel more SOB when fluid overloaded. No new symptoms otherwise, he is enjoying the nicer weather which allows him to do more activity and not sit at home and drink fluids which he thinks will help with IDWG's. 07/14/21: Continues to have high gains, unfortunately [place] without staff to open tomorrow for extra [...] improving. Fluid gains continue to be high, [place] not open on this week, says he will do his best withlimiting salt/fluid. HE does feel SOB with exertion with extra fluid on, no orthopnea. 05/26/21: Has SOB when >5 Kg over dry weight, extra run last week at [place] helped. Trying his best with fluid restriction. [...] extra run and we discussed going to [place] tomorrow for UF only run and he [...] again today, may need extra run at [place] if can't get down over next week. [...] ureteral ?tumor early next month in [place]. 06/10: Doing well overall, no new complaints, [...] Went to Urgent care -> ER in [place] yesterday,CT with R hydro but no obstructive [...] prescription. Vascular Access Assessment Type of access: [email or web address]/2019 Surgeon - Lary GARDNER Access working well [...] at goal. Intact PTH is above goal. Recycling Worker will adjust binders and vitamin D [...] euvolemia, extra UF run planned 07/22/21 at [place] Transplant Status: Patient is not a candidate. Weight, co-morbidities, age Resuscitation Status Stable dialysis, no changes to prescription Extra UF run tomorrow at [place] Continue work on lower IDWG's Monthly labs being drawn today Ernie Pompa MD [ Signed And locked electronically On 07/21/2021 at 09:05:19 AM ] Transcribed: Ernie Pompa ( 07/21/2021 ) documented in this encounter Plan of Treatment Not on filedocumented as of this encounter Visit Diagnoses Not on filedocumented in this encounter
--- OUTSIDE RECORDS SUMMARY | 2022-01-04 06:43 | XMS_ITS | Encounter Summary ---
:1945 Author Organization [facility] Address [address] [place] [address] Care Team Providers Name Role Phone Unavailable Primary Care Provider Unavailable Encounter Details Date Type Department Care Team Description 09/29/2021 Treatment [facility] f Ernie Guzmán MD [address] [place] [address] [place], [place] [phone] (Wo rk) Social History Tobacco Use Types Packs/Day Years Used Date Smoking Tobacco: Unknown Comments: Smoking History Info:Patient n ot screened Sex Assigned at Date Recorded Not on file documented as of this encounter Miscellaneous Notes Dialysis Note - Ernie Pompa MD - 09/29/2021 10:30 AM CDT Date: Sep 29, 2021 Patient Name: Shaun Ocampo : 1945 Chart #: [id number] Sex: M This patient was personally seen [...] AM ) BP (sit): 109/45 AP(-) / BILLET HEATER OPERATOR: 168/138 Pulse: 57 Chairside data as of [...] mcg IVP Every 2 weeks 09/29/2021 09/28/2022 CAMP COOK: Ernie Pompa MD LOCATION: [phone] SCHEDULE: -- 2nd Shift EDW: kg. DIALYZER: [...] and do periodic extra UF treatments at [place] rather than risk more hypotension post-tx with use of midodrine and additional UF during treatments. He has fistulagram last week, went well and access working well since. 08/11: Continues to have problems with fluid gains. we have spent considerable time discussing this, he is trying to work on this but can't seem to avoid large gains. Will go to [place] for UF tomorrow, needs extra treatments every 2 weeks it looks like to maintain EDW. He does get SOB when >5K over dry weight in particular. 07/21/21: Continues to struggle with fluid gains, extra UF run scheduled tomorrow at [place]. He does feel more SOB when fluid overloaded. No new symptoms otherwise, he is enjoying the nicer weather which allows him to do more activity and not sit at home and drink fluids which he thinks will help with IDWG's. 07/14/21: Continues to have high gains, unfortunately [place] without staff to open tomorrow for extra [...] improving. Fluid gains continue to be high, [place] not open on this week, says he will do his best withlimiting salt/fluid. HE does feel SOB with exertion with extra fluid on, no orthopnea. 05/26/21: Has SOB when >5 Kg over dry weight, extra run last week at [place] helped. Trying his best with fluid restriction. [...] extra run and we discussed going to [place] tomorrow for UF only run and he [...] again today, may need extra run at [place] if can't get down over next week. [...] ureteral ?tumor early next month in [place]. 06/10: Doing well overall, no new [...] Went to Urgent care -> ER in [place] yesterday,CT with R hydro but no obstructive [...] prescription. Vascular Access Assessment Type of access: [id number] Surgeon - Lary GARDNER 08/2021: fistulagram at [facility] with angioplasty of stenosis completed Anemia Assessment [...] at goal. Intact PTH is above goal. Real Estate Intern will adjust binders and vitamin D per [...] remain high Extra UF run tomorrow at [place] Transplant Status: Patient is not a candidate. Weight, co-morbidities, age Resuscitation Status Stable dialysis, no changes to prescription Extra UF run at [place] tomorrow Ongoing attempts at lower IDWG's Discussed [...]
--- OUTSIDE RECORDS SUMMARY | 2022-01-04 06:43 | XMS_ITS | Encounter Summary ---
:1945 Author Organization [facility] Address [address] [place] [address] Care Team Providers Name Role Phone Unavailable Primary Care Provider Unavailable Encounter Details Date Type Department Care Team Description 05/26/2021 Treatment [facility] f Ernie Guzmán MD [address] [place] [address] [place], [place] [phone] (Wo rk) Social History Tobacco Use Types Packs/Day Years Used Date Smoking Tobacco: Unknown Comments: Smoking History Info:Patient n ot screened Sex Assigned at Date Recorded Not on file documented as of this encounter Miscellaneous Notes Dialysis Note - Ernie Pompa MD - 05/26/2021 10:14 AM CST Date: May 26, 2021 Patient Name: Shaun Ocampo : 1945 Chart #: [id number] Sex: M This patient was personally seen [...] AM ) BP (sit): 117/59 AP(-) / MONOGRAM TECHNICIAN: 176/154 Pulse: 78 Chairside data as [...] mcg IVP Every 2 weeks 05/26/2021 05/25/2022 OVERCASTER: Ernie Pompa MD LOCATION: [facility] [phone] SCHEDULE: -- 2nd Shift EDW: kg. DIALYZER: HD DURATION: NEEDLE SIZE: ANTICOAG: BATH: QB: ml/min QD: ml/min Subjective Tolerating dialysis well. 05/26/21: Has SOB when >5 Kg over dry weight, extra run last week at [place] helped. Trying his best with fluid restriction. [...] well. He had extra run prior to [facility] and ran [facility] that week an [...] extra run and we discussed going to [place] tomorrow for UF only run and he [...] again today, may need extra run at [place] if can't get down over next week. [...] for ureteral ?tumor early next month in [place]. 06/10: Doing well overall, no new complaints, [...] Went to Urgent care -> ER in [place] yesterday,CT with R hydro but no obstructive [...] prescription. Vascular Access Assessment Type of access: [email or web address]/2019 Surgeon - Lary KUMARW Access working well [...] at goal. Intact PTH is above goal. Senior Research Manager will adjust binders and vitamin D [...] as tolerated, may need extra run at [place] again if can't achieve dry weight Continue [...]
--- OUTSIDE RECORDS SUMMARY | 2022-01-04 06:43 | XMS_ITS | Encounter Summary ---
:1945 Author Organization [facility] Address [address] [place] [address] Care Team Providers Name Role Phone Unavailable Primary Care Provider Unavailable Encounter Details Date Type Department Care Team Description 08/25/2021 Orders Only [facility] O f Ernie Guzmán MD [phone] [place] [address] [place], [place] [phone] (Wo rk) Social History Tobacco Use [...] 08/27/2021 Unless otherwise specified, test(s) performed at: [facility], [address] [place] [address] MANAGING ATTORNEY: Alec Payan M.D. For any questions, please call customer service at FREQUENCY:OTHER Resulting Agency Comment Specimen source: Blood Ernie Pompa MD LAB BLOOD ORDERABLES Performing Organization Address City/State/ZIP Code Phon e Number [facility]PS [facility] documented in this encounter Visit Diagnoses Not on filedocumented in this encounter
--- OUTSIDE RECORDS SUMMARY | 2022-01-04 06:43 | XMS_ITS | Encounter Summary ---
:1945 Author Organization [facility] Address [address] [place] [address] Care Team Providers Name Role Phone Unavailable Primary Care Provider Unavailable Encounter Details Date Type Department Care Team Description 06/16/2021 Orders Only [facility] O f Ernie Guzmán MD [phone] [place] [address] [place], [place] [phone] (Wo rk) Social History Tobacco Use [...] 06/17/2021 Unless otherwise specified, test(s) performed at: [facility], [address] [place] [address] PRESSROOM SUPERVISOR: Alec Payan M.D. For any questions, please call customer service at FREQUENCY:OTHER Resulting Agency Comment Specimen source: Blood Ernie Pompa MD LAB BLOOD ORDERABLES Performing Organization Address City/State/ZIP Code Phon e Number [facility]PS SPECTRA [facility] documented in this encounter Visit Diagnoses Not on filedocumented in this encounter
--- OUTSIDE RECORDS SUMMARY | 2022-01-04 06:43 | XMS_ITS | Encounter Summary ---
:1945 Author Organization [facility] Address [address] [place] [address] [address] [place] [address] Care Team Providers Name Role Phone Unavailable Primary Care Provider Unavailable Encounter Details Date Type Department Care Team Description 05/21/2021 Orders Only [facility] O f Ernie Guzmán MD [phone] [place] [address] [place], [place] [phone] (Wo rk) Social History Tobacco Use [...] / Volume Laterality 05/21/2021 05/22/2021 1:14 PM CASH VAN SALESPERSON Resulting Agency Comment Specimen source: Serum Ernie Pompa MD LAB BLOOD ORDERABLES Performing Organization Address City/State/ZIP Code Phon e Number [facility]PS SPECTRA [facility] POST CHEMISTRY (05/21/2021) athologist Signature BUN Post 12 6 - 19 APS SPECTRA Dialysis mg/dL [facility] Specimen (Source) Anatomical Collection Method Collection Time Re ceived Time Location / / Volume Laterality 05/21/2021 05/22/2021 11:5 6 AM CASH VAN SALESPERSON Narrative [facility]PS SPECTRA [facility] - 05/22/2021 Unless otherwise specified, test(s) performed at: [facility], [address] [place] [address] ENVIRONMENTAL REMEDIATION CONSULTANT: Alec Payan M.D. For any questions, [...] / Volume Laterality 05/21/2021 05/22/2021 1:14 PM CASH VAN SALESPERSON Narrative APS SPECTRA [facility] - 05/22/2021 Unless otherwise specified, test(s) performed at: [facility], [address] [place] [address] ENVIRONMENTAL REMEDIATION CONSULTANT: Alec Payan M.D. For any questions, please call customer service at FREQUENCY:OTHER Resulting Agency Comment Specimen source: Serum Ernie Pompa MD LAB BLOOD ORDERABLES Performing Organization Address City/State/ZIP Code Phon e Number [facility]PS SPECTRA [facility] documented in this encounter Visit Diagnoses Not on filedocumented in this encounter
--- OUTSIDE RECORDS SUMMARY | 2022-01-04 06:43 | XMS_ITS | Encounter Summary ---
:1945 Author Organization [facility] Address [address] [place] [address] Care Team Providers Name Role Phone Unavailable Primary Care Provider Unavailable Encounter Details Date Type Department Care Team Description 09/15/2021 Treatment [facility] f Ernie Guzmán MD [address] [place] [address] [place], [place] [address] [phone] (Wo rk) Social History Tobacco Use Types Packs/Day Years Used Date Smoking Tobacco: Unknown Comments: Smoking History Info:Patient n ot screened Sex Assigned at Date Recorded Not on file documented as of this encounter Miscellaneous Notes Dialysis Note - Ernie Pompa MD - 09/15/2021 10:30 AM CDT Date: Sep 15, 2021 Patient Name: Shaun Ocampo : 1945 Chart #: [id number] Sex: M This patient was personally seen [...] AM ) BP (sit): 107/33 AP(-) / BANQUET WAITER/WAITRESS: n/a Pulse: 65 Chairside data as of [...] mcg IVP Every 2 weeks 09/15/2021 09/14/2022 FOREIGN BANKNOTE TELLER TRADER: Ernie Pompa MD LOCATION: [phone] SCHEDULE: -- 2nd Shift ACCESS: EDW: kg. [...] and do periodic extra UF treatments at [place] rather than risk more hypotension post-tx with use of midodrine and additional UF during treatments. He has fistulagram last week, went well and access working well since. 08/11: Continues to have problems with fluid gains. we have spent considerable time discussing this, he is trying to work on this but can't seem to avoid large gains. Will go to [place] for UF tomorrow, needs extra treatments every 2 weeks it looks like to maintain EDW. He does get SOB when >5K over dry weight in particular. 07/21/21: Continues to struggle with fluid gains, extra UF run scheduled tomorrow at [place]. He does feel more SOB when fluid overloaded. No new symptoms otherwise, he is enjoying the nicer weather which allows him to do more activity and not sit at home and drink fluids which he thinks will help with IDWG's. 07/14/21: Continues to have high gains, unfortunately [place] without staff to open tomorrow for extra [...] improving. Fluid gains continue to be high, [place] not open on this week, says he will do his best withlimiting salt/fluid. HE does feel SOB with exertion with extra fluid on, no orthopnea. 05/26/21: Has SOB when >5 Kg over dry weight, extra run last week at [place] helped. Trying his best with fluid restriction. [...] extra run and we discussed going to [place] tomorrow for UF only run and he [...] again today, may need extra run at [place] if can't get down over next week. [...] for ureteral ?tumor early next month in [place]. 06/10: Doing well overall, no new [...] Went to Urgent care -> ER in [place] yesterday,CT with R hydro but no obstructive [...] (08/18/21) Vascular Access Assessment: Type of access: [id number]/2019 Surgeon - Lary GARDNER 08/2021: fistulagram at [facility] with angioplasty of stenosis completed Impression and Plan Stable dialysis overall, no changes to prescription made Continue to work on fluid gains, likely will need extra UF run every couple of weeks at [place] I asked him to schedule follow-up with [...]
--- OUTSIDE RECORDS SUMMARY | 2022-01-04 06:43 | XMS_ITS | Encounter Summary ---
:1945 Author Organization [facility] Address [address] [place] [address] Care Team Providers Name Role Phone Unavailable Primary Care Provider Unavailable Encounter Details Date Type Department Care Team Description 09/22/2021 Orders Only [facility] O f Ernie Guzmán MD [address] [place] [address] [place], [place] [phone] (Wo rk) Social History Tobacco Use [...] 09/24/2021 Unless otherwise specified, test(s) performed at: [facility], [address] [place] [address], [place] [address] ORGANIZATIONAL EFFECTIVENESS CONSULTANT: Alhaji Noguera M.D., Ph.D For any questions, please call customer service at FREQUENCY:MONTHLY Resulting Agency Comment Specimen source: Plasma Ernie Pompa MD LAB BLOOD ORDERABLES Performing Organization Address City/[facility]/ZIP Code Phon e Number APS SPECTRA [...] APS SPECTRA [facility] (ABNORMAL) Spectrae Chemistry (09/22/2021) [facility] gist Method Time Signature BUN 41 [...] 09/24/2021 Unless otherwise specified, test(s) performed at: [facility], [address] [place] [address], [place] [address] ORGANIZATIONAL EFFECTIVENESS CONSULTANT: Alhaji Noguera M.D., Ph.D For any questions, please call customer service at FREQUENCY:MONTHLY Resulting Agency Comment Specimen source: Serum Ernie Pompa MD LAB BLOOD ORDERABLES Performing Organization Address [facility] Phon e Number APS SPECTRA [facility] POST CHEMISTRY (09/22/2021) P athologist Signature BUN Post 12 6 - 19 APS SPECTRA Dialysis mg/dL [facility] Specimen (Source) Anatomical Collection Method Collection Time Re ceived Time Location / / Volume Laterality 09/22/2021 09/24/2021 4:03 PM CDT Narrative APS SPECTRA [facility] - 09/24/2021 Unless otherwise specified, test(s) performed at: [facility], [address] [place] [address] ORGANIZATIONAL EFFECTIVENESS CONSULTANT: Alhaji Noguera M.D., Ph.D For any questions, please call customer service at FREQUENCY:MONTHLY Resulting Agency Comment Specimen source: Plasma Ernie Pompa MD LAB BLOOD ORDERABLES Performing Organization Address [facility] Phon e Number APS [...] 09/24/2021 Unless otherwise specified, test(s) performed at: [facility], [address] [place] [address] ORGANIZATIONAL EFFECTIVENESS CONSULTANT: Alhaji Noguera M.D., Ph.D For any questions, [...] LAB BLOOD ORDERABLES Performing Organization Address City/[facility]/ZIP Code Phon e Number APS SPECTRA [facility] (ABNORMAL) Spectrae Chemistry (09/22/2021) P athologist Signature PTH 722 (H) 16 - 80 APS SPECTRA pg/mL [facility] Specimen (Source) Anatomical Collection Method Collection Time Re ceived Time Location / / Volume Laterality 09/22/2021 09/24/2021 2:25 PM CDT Narrative APS SPECTRA [facility] - 09/24/2021 Unless otherwise specified, test(s) performed at: [facility], [address] [facility] [place] [address] ORGANIZATIONAL EFFECTIVENESS CONSULTANT: Alhaji Noguera M.D., Ph.D For any questions, please call customer service at FREQUENCY:MONTHLY Resulting Agency Comment Specimen source: Plasma Ernie Pompa MD LAB BLOOD ORDERABLES Performing Organization Address City/[facility] Phon e Number APS SPECTRA [facility] documented in this encounter Visit Diagnoses Not on filedocumented in this encounter
--- OUTSIDE RECORDS SUMMARY | 2022-01-04 06:43 | XMS_ITS | Encounter Summary ---
:1945 Author Organization [facility] Address [address] [place] [address] Care Team Providers Name Role Phone Unavailable Primary Care Provider Unavailable Encounter Details Date Type Department Care Team Description 08/20/2021 Orders Only [facility] O f Ernie Guzmán MD [address] [place] [address] [place], [place] [phone] (Wo rk) Social History Tobacco Use [...] 08/21/2021 Unless otherwise specified, test(s) performed at: [facility], [address] [place] [address] AGILE TEST LEAD: Alec Payan M.D. For any questions, please call customer service at FREQUENCY:OTHER Resulting Agency Comment Specimen source: Plasma Ernie Pompa MD LAB BLOOD ORDERABLES Performing Organization Address City/State/ZIP Code Phon e Number APS SPECTRA [facility] documented in this encounter Visit Diagnoses Not on filedocumented in this encounter
--- OUTSIDE RECORDS SUMMARY | 2022-01-04 06:44 | XMS_ITS | Encounter Summary ---
:1945 Author Organization [facility] Address [address] [place] [address] Care Team Providers Name Role Phone Unavailable Primary Care Provider Unavailable Encounter Details Date Type Department Care Team Description 01/13/2021 Orders Only [facility] O f Ernie Guzmán MD [phone] [place] [address] [place], [place] [phone] (Wo rk) Social History Tobacco Use [...] 01/14/2021 Unless otherwise specified, test(s) performed at: [facility], [address] [place] [address] THERAPY SITE COORDINATOR: Alec Payan M.D. For any questions, please call customer service at FREQUENCY:OTHER Resulting Agency Comment Specimen source: Blood Ernie Pompa MD LAB BLOOD ORDERABLES Performing Organization Address City/State/ZIP Code Phon e Number APS SPECTRA [facility] documented in this encounter Visit Diagnoses Not on filedocumented in this encounter
--- OUTSIDE RECORDS SUMMARY | 2022-01-04 06:44 | XMS_ITS | Encounter Summary ---
:1945 Author Organization [facility] Address [address] [place] [address] Care Team Providers Name Role Phone Unavailable Primary Care Provider Unavailable Encounter Details Date Type Department Care Team Description 04/07/2021 Orders Only [facility] O f Ernie Guzmán MD [address] [place] [address] [place], [place] [phone] (Wo rk) Social History Tobacco Use [...] Volume Laterality 04/07/2021 04/09/2021 11:4 3 AM COSMETIC SALES ADVISOR Narrative APS SPECTRA [facility] - 04/09/2021 Unless otherwise specified, test(s) performed at: [facility], [address] [place] [address] BOX SPRING UPHOLSTERER: Alec Payan M.D. For any questions, please call customer service at FREQUENCY:OTHER Resulting Agency Comment Specimen source: Blood Ernie Pompa MD LAB BLOOD ORDERABLES Performing Organization Address City/State/ZIP Code Phon e Number APS SPECTRA [facility] documented in this encounter Visit Diagnoses Not on filedocumented in this encounter
--- OUTSIDE RECORDS SUMMARY | 2022-01-04 06:44 | XMS_ITS | Encounter Summary ---
:1945 Author Organization [facility] Address [address] [place] [address] Care Team Providers Name Role Phone Unavailable Primary Care Provider Unavailable Encounter Details Date Type Department Care Team Description 04/21/2021 Treatment [facility] O f Ernie Guzmán MD [address] [place] [address] [place], [place] [address] [phone] (Wo rk) Social History Tobacco Use Types Packs/Day Years Used Date Smoking Tobacco: Unknown Comments: Smoking History Info:Patient n ot screened Sex Assigned at Date Recorded Not on file documented as of this encounter Miscellaneous Notes Dialysis Note - Ernie Pompa MD - 04/21/2021 8:58 AM CST Date: Apr 21, 2021 Patient Name: Shaun Ocampo : 1945 Chart #: [id number] Sex: M This patient was personally seen [...] AM ) BP (sit): 113/62 AP(-) / ALLOY WEIGHER: 176/155 Pulse: 78 Chairside data as of [...] 50 mg IVP 1X Week 04/12/2021 04/11/2022 HYBRID CAR MECHANIC: Ernie Pompa MD LOCATION: [phone] SCHEDULE: M-W-F 2nd Shift EDW: kg. DIALYZER: [...] extra run and we discussed going to [place] tomorrow for UF only run and he [...] again today, may need extra run at [place] if can't get down over next week. [...] for ureteral ?tumor early next month in [place]. 06/10: Doing well overall, no new complaints, [...] to Urgent care -> ER in [place] yesterday,CT with R hydro but no obstructive [...] He had infiltration last week, dialyzed at [facility] on Sat and went well, access [...] prescription. Vascular Access Assessment Type of access: [id number]/2019 Surgeon - Lary GARDNER Access working well [...] at goal. Intact PTH is above goal. Boiling House Oiler will adjust binders and vitamin D per [...]
--- OUTSIDE RECORDS SUMMARY | 2022-01-04 06:44 | XMS_ITS | Encounter Summary ---
:1945 Author Organization [facility] Address [address] [place] [address] Care Team Providers Name Role Phone Unavailable Primary Care Provider Unavailable Encounter Details Date Type Department Care Team Description 04/14/2021 Treatment [facility] O f Ernie Guzmán MD [address] [place] [address] [place], [place] [address] [phone] (Wo rk) Social History Tobacco Use Types Packs/Day Years Used Date Smoking Tobacco: Unknown Comments: Smoking History Info:Patient n ot screened Sex Assigned at Date Recorded Not on file documented as of this encounter Miscellaneous Notes Dialysis Note - Ernie Pompa MD - 04/14/2021 10:26 AM CST Date: Apr 14, 2021 Patient Name: Shaun Ocampo : 1945 Chart #: [id number] Sex: M This patient was personally seen [...] AM ) BP (sit): 110/48 AP(-) / SUPPLY CHAIN ANALYST: 166/145 Pulse: 77 Chairside data as of [...] mcg IVP Every 2 weeks 04/07/2021 04/06/2022 MANAGER DISASTER RECOVERY: Ernie Pompa MD LOCATION: [phone] SCHEDULE: M-W- 2nd Shift ACCESS: EDW: kg. [...] extra run and we discussed going to [place] tomorrow for UF only run and he [...] again today, may need extra run at [place] if can't get down over next week. 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 06/10: Doing well overall, no new complaints, [...] Went to Urgent care -> ER in [place] yesterday,CT with R hydro but no obstructive [...] (02/17/21) Vascular Access Assessment: Type of access: [id number]/2019 Surgeon - Lary GARDNER Access working well [...]
--- OUTSIDE RECORDS SUMMARY | 2022-01-04 06:44 | XMS_ITS | Encounter Summary ---
:1945 Author Organization [facility] Address [address] [place] [address] Care Team Providers Name Role Phone Unavailable Primary Care Provider Unavailable Encounter Details Date Type Department Care Team Description 05/17/2021 Orders Only [facility] O f Ernie Guzmán MD [address] [place] [address] [place], [place] [phone] (Wo rk) Social History Tobacco Use [...] / Volume Laterality 05/17/2021 05/18/2021 1:48 PM COLOR PRINT INSPECTOR Narrative APS SPECTRA [facility] - 05/18/2021 Unless otherwise specified, test(s) performed at: [facility], [address] [place] [address] SODA CLERK: Alec Payan M.D. For any questions, [...] Volume Laterality 05/17/2021 05/18/2021 11:1 2 AM COLOR PRINT INSPECTOR Narrative APS SPECTRA [facility] - 05/18/2021 Unless otherwise specified, test(s) performed at: [facility], [address] [place] [address] SODA CLERK: Alec Payan M.D. For any questions, please call customer service at FREQUENCY:OTHER Resulting Agency Comment Specimen source: Serum Ernie Pompa MD LAB BLOOD ORDERABLES Performing Organization Address City/[facility]/ZIP Code Phon e Number APS SPECTRA [facility] documented in this encounter Visit Diagnoses Not on filedocumented in this encounter
--- OUTSIDE RECORDS SUMMARY | 2022-01-04 06:44 | XMS_ITS | Encounter Summary ---
:1945 Author Organization [facility] Address [address] [place] [address] Care Team Providers Name Role Phone Unavailable Primary Care Provider Unavailable Encounter Details Date Type Department Care Team Description 05/05/2021 Orders Only [facility] O f Ernie Guzmán MD [address] [place] [address] [place], [place] [phone] (Wo rk) Social History Tobacco Use [...] / Volume Laterality 05/05/2021 05/06/2021 8:46 PM SERVICE CENTER REPRESENTATIVE Narrative APS SPECTRA [facility] - 05/07/2021 Unless otherwise specified, test(s) performed at: [facility], [address] [place] [address] MARINE TECHNICIAN: Alec Payan M.D. For any questions, [...] / Volume Laterality 05/05/2021 05/06/2021 5:29 PM SERVICE CENTER REPRESENTATIVE Narrative APS SPECTRA [facility] - 05/06/2021 Unless otherwise specified, test(s) performed at: [facility], [address] [place], [place] [id number] MARINE TECHNICIAN: Alec Payan M.D. For any questions, please call customer service at FREQUENCY:OTHER Resulting Agency Comment Specimen source: Blood Ernie Pompa MD LAB BLOOD ORDERABLES Performing Organization Address [facility] Phon e Number APS SPECTRA [facility] (ABNORMAL) Spectrae Chemistry (05/05/2021) P athologist Signature PTH 1,457 (H) 16 - 80 APS SPECTRA pg/mL [facility] Specimen (Source) Anatomical Collection Method Collection Time Re ceived Time Location / / Volume Laterality 05/05/2021 05/06/2021 5:24 PM SERVICE CENTER REPRESENTATIVE Narrative APS SPECTRA [facility] - 05/06/2021 Unless otherwise specified, test(s) performed at: [facility], [address] [place] [address] MARINE TECHNICIAN: Alec Payan M.D. For any questions, please call customer service at FREQUENCY:OTHER Resulting Agency Comment Specimen source: Plasma Ernie Pompa MD LAB BLOOD ORDERABLES Performing Organization Address City/[facility] Phon e Number APS SPECTRA [facility] documented in this encounter Visit Diagnoses Not on filedocumented in this encounter
--- OUTSIDE RECORDS SUMMARY | 2022-01-04 06:44 | XMS_ITS | Encounter Summary ---
:1945 Author Organization [facility] Address [address] [place] [address] Care Team Providers Name Role Phone Unavailable Primary Care Provider Unavailable Encounter Details Date Type Department Care Team Description 01/20/2021 Treatment [facility] O Ernie Gómez MD [address] [place] [address] [place], [place] [address] [phone] (Wo rk) Social History Tobacco Use Types Packs/Day Years Used Date Smoking Tobacco: Unknown Comments: Smoking History Info:Patient n ot screened Sex Assigned at Date Recorded Not on file documented as of this encounter Miscellaneous Notes Dialysis Note - Ernie Pompa MD - 01/20/2021 9:46 AM CDT Date: Jan 20, 2021 Patient Name: Shaun Ocampo : 1945 Chart #: [id number] Sex: M This patient was personally seen [...] 2.0 mcg ORAL Every Treatment 12/30/2020 12/29/2021 PORT TRAFFIC MANAGER: Ernie Pompa MD LOCATION: [place] [phone] SCHEDULE: -- 2nd Shift EDW: kg. 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 06/10: Doing well overall, no new complaints, [...] Went to Urgent care -> ER in [place] yesterday,CT with R hydro but no obstructive [...] prescription. Vascular Access Assessment Type of access: [id number]/2019 Surgeon Annita KUMARW Access working well Anemia [...] at goal. Intact PTH is at goal. Keeper Helper will adjust binders and vitamin D [...]
--- OUTSIDE RECORDS SUMMARY | 2022-01-04 06:44 | XMS_ITS | Encounter Summary ---
:1945 Author Organization [facility] Address [address] [place] [address] Care Team Providers Name Role Phone Unavailable Primary Care Provider Unavailable Encounter Details Date Type Department Care Team Description 03/03/2021 Treatment [facility] O Ernie Gómez MD [address] [place] [address] [place], [place] [address] [phone] (Wo rk) Social History Tobacco Use Types Packs/Day Years Used Date Smoking Tobacco: Unknown Comments: Smoking History Info:Patient n ot screened Sex Assigned at Date Recorded Not on file documented as of this encounter Miscellaneous Notes Dialysis Note - Ernie Pompa MD - 03/03/2021 9:56 AM CST Date: Mar 03, 2021 Patient Name: Shaun Ocampo : 1945 Chart #: [id number] Sex: M This patient was personally seen [...] AM ) BP (sit): 124/50 AP(-) / PROFESSOR OF FINANCE: 188/160 Pulse: 72 Chairside data as of [...] 11/20/2020 Access Flow 1384 > 2000 1432 FRINGE MAKER: Ernie Pompa MD LOCATION: [place] [phone] SCHEDULE: -- 2nd Shift EDW: kg. DIALYZER: [...] again today, may need extra run at [place] if can't get down over next week. 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 06/10: Doing well overall, no new complaints, [...] prescription. Vascular Access Assessment Type of access: [id number]/2019 Surgeon - Lary KUMARW Access working well [...] above goal. Intact PTH is at goal. Balloon Tester will adjust binders and vitamin D [...]
--- OUTSIDE RECORDS SUMMARY | 2022-01-04 06:44 | XMS_ITS | Encounter Summary ---
:1945 Author Organization [facility] Address [address] [place] [address] Care Team Providers Name Role Phone Unavailable Primary Care Provider Unavailable Encounter Details Date Type Department Care Team Description 12/30/2020 Orders Only [facility] O f Ernie Guzmán MD [address] [place] [address] [place], [place] [phone] (Wo rk) Social History Tobacco Use [...] 12/31/2020 Unless otherwise specified, test(s) performed at: [facility], [address] [place] [address] MACHINERY ENGINEER: Alec Payan M.D. For any questions, please call customer service at FREQUENCY:OTHER Resulting Agency Comment Specimen source: Blood Ernie Pompa MD LAB BLOOD ORDERABLES Performing Organization Address City/State/ZIP Code Phon e Number APS SPECTRA [facility] documented in this encounter Visit Diagnoses Not on filedocumented in this encounter
--- OUTSIDE RECORDS SUMMARY | 2022-01-04 06:44 | XMS_ITS | Encounter Summary ---
:1945 Author Organization [facility] Address [address] [place] [address] Care Team Providers Name Role Phone Unavailable Primary Care Provider Unavailable Encounter Details Date Type Department Care Team Description 03/31/2021 Orders Only [facility] O f Ernie Guzmán MD [address] [place] [address] [place], [place] [phone] (Wo rk) Social History Tobacco Use [...] Volume Laterality 03/31/2021 04/01/2021 10:3 5 PM MOLD CAR PUSHER Narrative APS SPECTRA [facility] - 04/02/2021 Unless otherwise specified, test(s) performed at: [facility], [address] [place] [address] COUNTER SUPPLY WORKER: Alec Payan M.D. For any questions, please call customer service at FREQUENCY:OTHER Resulting Agency Comment Specimen source: Serum Ernie Pompa MD LAB BLOOD ORDERABLES Performing Organization Address City/[facility]/ZIP Code Phon e Number APS SPECTRA [facility] (ABNORMAL) Spectrae Chemistry (03/31/2021) P athologist Signature PTH 1,309 (H) 16 - 80 APS SPECTRA pg/mL [facility] Specimen (Source) Anatomical Collection Method Collection Time Re ceived Time Location / / Volume Laterality 03/31/2021 04/01/2021 4:18 PM MOLD CAR PUSHER Narrative APS SPECTRA [facility] - 04/02/2021 Unless otherwise specified, test(s) performed at: [facility], [address] [place], [place] [id number] COUNTER SUPPLY WORKER: Alec Payan M.D. For any questions, please call customer service at FREQUENCY:OTHER Resulting Agency Comment Specimen source: Plasma Ernie Pompa MD LAB BLOOD ORDERABLES Performing Organization Address [facility] Phon e Number APS SPECTRA [facility] (ABNORMAL) HEMATOLOGY (03/31/2021) Analysis Performed At Patho logist Time Signature Hemoglobin 11.0 (L) 14.0 - APS SPECTRA 18.0 g/dL [facility] Hemoglobin x 3 33.0 (L) 42.0 - APS SPECTRA 54.0 % [facility] Specimen (Source) Anatomical Collection Method Collection Time Re ceived Time Location / / Volume Laterality 03/31/2021 04/01/2021 3:40 PM MOLD CAR PUSHER Narrative APS SPECTRA [facility] - 04/02/2021 Unless otherwise specified, test(s) performed at: [facility], [address] [place] [address] COUNTER SUPPLY WORKER: Alec Payan M.D. For any questions, please call customer service at FREQUENCY:OTHER Resulting Agency Comment Specimen source: Blood Ernie Pompa MD LAB BLOOD ORDERABLES Performing Organization Address City/[facility] Phon e Number APS SPECTRA [facility] documented in this encounter Visit Diagnoses Not on filedocumented in this encounter
--- OUTSIDE RECORDS SUMMARY | 2022-01-04 06:44 | XMS_ITS | Encounter Summary ---
:1945 Author Organization [facility] Address [address] [place] [address] Care Team Providers Name Role Phone Unavailable Primary Care Provider Unavailable Encounter Details Date Type Department Care Team Description 03/17/2021 Orders Only [facility] O f Ernie Guzmán MD [address] [place] [address] [place], [place] [phone] (Wo rk) Social History Tobacco Use [...] / Volume Laterality 03/17/2021 03/18/2021 9:32 AM HARBORMASTER Narrative APS SPECTRA [facility] - 03/18/2021 Unless otherwise specified, test(s) performed at: [facility], [address] [place] [address] HIGH DENSITY FINISHING OPERATOR: Alec Payan M.D. For any questions, please call customer service at FREQUENCY:OTHER Resulting Agency Comment Specimen source: Blood Ernie Pompa MD LAB BLOOD ORDERABLES Performing Organization Address City/State/ZIP Code Phon e Number APS SPECTRA [facility] documented in this encounter Visit Diagnoses Not on filedocumented in this encounter
--- OUTSIDE RECORDS SUMMARY | 2022-01-04 06:44 | XMS_ITS | Encounter Summary ---
:1945 Author Organization [facility] Address [address] [place] [address] Care Team Providers Name Role Phone Unavailable Primary Care Provider Unavailable Encounter Details Date Type Department Care Team Description 01/06/2021 Orders Only [facility] O f Ernie Guzmán MD [address] [place] [address] [place], [place] [phone] (Wo rk) Social History Tobacco Use [...] 01/07/2021 Unless otherwise specified, test(s) performed at: [facility], [address] [place] [address] OPTICAL LABORATORY MANAGER: Alec Payan M.D. For any questions, please call customer service at FREQUENCY:OTHER Resulting Agency Comment Specimen source: Blood Ernie Pompa MD LAB BLOOD ORDERABLES Performing Organization Address City/State/ZIP Code Phon e Number APS SPECTRA [facility] documented in this encounter Visit Diagnoses Not on filedocumented in this encounter
--- OUTSIDE RECORDS SUMMARY | 2022-01-04 06:44 | XMS_ITS | Encounter Summary ---
:1945 Author Organization [facility] Address [address] [place] [address] Care Team Providers Name Role Phone Unavailable Primary Care Provider Unavailable Encounter Details Date Type Department Care Team Description 01/20/2021 Orders Only [facility] O f Ernie Guzmán MD [address] [place] [address] [place], [place] [phone] (Wo rk) Social History Tobacco Use [...] 01/22/2021 Unless otherwise specified, test(s) performed at: [facility], [address] [place] [address] WATER ANALYST: Alec Payan M.D. For any questions, [...] 01/22/2021 Unless otherwise specified, test(s) performed at: [facility], [address] [place] [address] WATER ANALYST: Alec Payan M.D. For any questions, please call customer service at FREQUENCY:MONTHLY Resulting Agency Comment Specimen source: Serum Ernie Pompa MD LAB BLOOD ORDERABLES Performing Organization Address City/[facility] [place] Phon e Number APS SPECTRA [facility] IMMUNO CHEMISTRY (01/20/2021) P athologist Signature Hep B Surface Negative Negative APS SPECTRA Ag [facility] Specimen (Source) Anatomical Collection Method Collection Time Re ceived Time Location / / Volume Laterality 01/20/2021 01/21/2021 8:41 PM CDT Narrative [facility] - 01/21/2021 Unless otherwise specified, test(s) performed at: [facility], [address] [place] [address] WATER ANALYST: Alec Payan M.D. For any questions, please call customer service at FREQUENCY:MONTHLY Resulting Agency Comment Specimen source: Serum Ernie Pompa MD LAB BLOOD ORDERABLES Performing Organization Address City/[facility] [place] Phon e Number [facility] S[facility] POST CHEMISTRY (01/20/2021) P athologist Signature BUN Post 11 6 - 19 APS SPECTRA Dialysis mg/dL [facility] Specimen (Source) Anatomical Collection Method Collection Time Re ceived Time Location / / Volume Laterality 01/20/2021 01/21/2021 10:5 1 AM CDT Narrative [facility]PS S[facility]RA [facility] - 01/21/2021 Unless otherwise specified, test(s) performed at: [facility], [address] [place] [address] WATER ANALYST: Alec Payan M.D. For any questions, [...] 01/21/2021 Unless otherwise specified, test(s) performed at: [facility], [address] [place] [address] WATER ANALYST: Alec Payan M.D. For any questions, [...] 01/21/2021 Unless otherwise specified, test(s) performed at: [facility], [address] [place] [address] WATER ANALYST: Alec Payan M.D. For any questions, please call customer service at FREQUENCY:MONTHLY Resulting Agency Comment Specimen source: Plasma Ernie Pompa MD LAB BLOOD ORDERABLES Performing Organization Address City/State/ZIP Code Phon e Number [facility]PS SPECTRA [facility] documented in this encounter Visit Diagnoses Not on filedocumented in this encounter
--- OUTSIDE RECORDS SUMMARY | 2022-01-04 06:44 | XMS_ITS | Encounter Summary ---
:1945 Author Organization [facility] Address [address] [place] [address] Care Team Providers Name Role Phone Unavailable Primary Care Provider Unavailable Encounter Details Date Type Department Care Team Description 05/19/2021 Orders Only [facility] O f Ernie Guzmán MD [address] [place] [address] [place], [place] [phone] (Wo rk) Social History Tobacco Use [...] Provider LAB BLOOD ORDERABLES Performing Organization Address [facility] Phon e Number KAMERON IMMUNO CHEMISTRY (05/19/2021) P athologist Signature Hep B Surface Negative Negative APS SPECTRA Ag [facility] Specimen (Source) Anatomical Collection Method Collection Time Re ceived Time Location / / Volume Laterality 05/19/2021 05/20/2021 3:10 PM KEEPER HEAD Narrative [facility]PS [facility]RA [facility] - 05/20/2021 Unless otherwise specified, test(s) performed at: [facility], [address] [place], [place] [address] GEAR REPAIR SUPERVISOR: Alec Payan M.D. For any questions, please call customer service at FREQUENCY:MONTHLY Resulting Agency Comment Specimen source: Serum Ernie Pompa MD LAB BLOOD ORDERABLES Performing Organization Address [facility] Phon e Number [facility] HD KINETICS (05/19/2021) P athologist Signature % Urea 69 65 - 80 % APS [facility]RA Reduction [facility] Specimen (Source) Anatomical Collection Method Collection Time Re ceived Time Location / / Volume Laterality 05/19/2021 05/20/2021 3:12 PM KEEPER HEAD Narrative APS SPECTRA [facility] - 05/20/2021 Unless otherwise specified, test(s) performed at: [facility], [address] [place] [address] GEAR REPAIR SUPERVISOR: Alec Payan M.D. For any questions, please call customer service at FREQUENCY:MONTHLY Resulting Agency Comment Specimen source: Serum Ernie Pompa MD LAB BLOOD ORDERABLES Performing Organization Address [facility] Phon e Number APS SPECTRA [...] / Volume Laterality 05/19/2021 05/20/2021 3:10 PM KEEPER HEAD Narrative APS SPECTRA [facility] - 05/20/2021 Unless otherwise specified, test(s) performed at: [facility], [address] [place] [address] GEAR REPAIR SUPERVISOR: Alec aPyan M.D. For any questions, please call customer [...] / Volume Laterality 05/19/2021 05/20/2021 2:08 PM KEEPER HEAD Narrative APS SPECTRA [facility] - 05/20/2021 Unless otherwise specified, test(s) performed at: [facility], [address] [place] [address] GEAR REPAIR SUPERVISOR: Alec Payan M.D. For any [...] Volume Laterality 05/19/2021 05/20/2021 12:5 8 PM KEEPER HEAD Narrative [facility]PS SPECTRA [facility] - 05/20/2021 Unless otherwise specified, test(s) performed at: [facility], [address] [place] [address] GEAR REPAIR SUPERVISOR: Alec Payan M.D. For any questions, please call customer service at FREQUENCY:MONTHLY Resulting Agency Comment Specimen source: Blood Ernie Pompa MD LAB BLOOD ORDERABLES Performing Organization Address City/State/ZIP Code Phon e Number [facility]PS SPECTRA [facility] documented in this encounter Visit Diagnoses Not on filedocumented in this encounter
--- OUTSIDE RECORDS SUMMARY | 2022-01-04 06:44 | XMS_ITS | Encounter Summary ---
:1945 Author Organization [facility] Address [address] [place] [address] Care Team Providers Name Role Phone Unavailable Primary Care Provider Unavailable Encounter Details Date Type Department Care Team Description 02/17/2021 Orders Only [facility] O f Ernie Guzmán MD [address] [place] [address] [place], [place] [phone] (Wo rk) Social History Tobacco Use [...] / Volume Laterality 02/17/2021 02/18/2021 4:14 PM PULP MIXER Resulting Agency Comment Specimen source: Serum Ernie Pompa MD LAB BLOOD ORDERABLES Performing Organization Address City/[facility]/ZIP Code Phon e Number APS SPECTRA [facility] POST CHEMISTRY (02/17/2021) P athologist Signature BUN Post 13 6 - 19 APS SPECTRA Dialysis mg/dL [facility] Specimen (Source) Anatomical Collection Method Collection Time Re ceived Time Location / / Volume Laterality 02/17/2021 02/18/2021 4:00 PM PULP MIXER Narrative APS SPECTRA [facility] - 02/19/2021 Unless otherwise specified, test(s) performed at: [facility], [address] [place] [address] SPRINKLER FITTER APPRENTICE: Alec Payan M.D. For any questions, please call customer service at FREQUENCY:MONTHLY Resulting Agency Comment Specimen source: Plasma Ernie Pompa MD LAB BLOOD ORDERABLES Performing Organization Address City/[facility] Code Phon e Number APS SPECTRA [facility] IMMUNO CHEMISTRY (02/17/2021) P athologist Signature Hep B Surface Negative Negative APS SPECTRA Ag [facility] Specimen (Source) Anatomical Collection Method Collection Time Re ceived Time Location / / Volume Laterality 02/17/2021 02/18/2021 4:08 PM PULP MIXER Narrative APS SPECTRA [facility] - 02/18/2021 Unless otherwise specified, test(s) performed at: [facility], [address] [place] [address] SPRINKLER FITTER APPRENTICE: Alec Payan M.D. For any questions, please call customer service at FREQUENCY:MONTHLY Resulting Agency Comment Specimen source: Serum Ernie Pompa MD LAB BLOOD ORDERABLES Performing Organization Address City/State/ZIP Code Phon e Number APS SPECTRA [facility] (ABNORMAL) Spectrae Chemistry (02/17/2021) [facility] Method Time Signature BUN 46 [...] / Volume Laterality 02/17/2021 02/18/2021 4:08 PM PULP MIXER Narrative APS SPECTRA [facility] - 02/18/2021 Unless otherwise specified, test(s) performed at: [facility], [address] [place] [address] SPRINKLER FITTER APPRENTICE: Alec Payan M.D. For any questions, please call customer service at FREQUENCY:MONTHLY Resulting Agency Comment Specimen source: Serum Ernie Pompa MD LAB BLOOD ORDERABLES Performing Organization Address City/[facility] Code Phon e Number [...] / Volume Laterality 02/17/2021 02/18/2021 9:53 AM PULP MIXER Narrative APS SPECTRA [facility] - 02/18/2021 Unless otherwise specified, test(s) performed at: [facility], [address] [place] [address] SPRINKLER FITTER APPRENTICE: Alec Payan M.D. For any questions, please call customer service at FREQUENCY:MONTHLY Resulting Agency Comment Specimen source: Blood Ernie Pompa MD LAB BLOOD ORDERABLES Performing Organization Address City/[facility]/ZIP [facility] Phon e Number APS SPECTRA [facility] (ABNORMAL) Spectrae Chemistry (02/17/2021) P athologist Signature PTH 546 (H) 16 - 80 APS SPECTRA pg/mL [facility] Specimen (Source) Anatomical Collection Method Collection Time Re ceived Time Location / / Volume Laterality 02/17/2021 02/18/2021 10:3 2 AM PULP MIXER Narrative APS SPECTRA [facility] - 02/18/2021 Unless otherwise specified, test(s) performed at: [facility], [address] [place] [address] SPRINKLER FITTER APPRENTICE: Alec Payan M.D. For any questions, please call customer service at FREQUENCY:MONTHLY Resulting Agency Comment Specimen source: Plasma Ernie Pompa MD LAB BLOOD ORDERABLES Performing Organization Address City/State/ZIP Code Phon e Number APS SPECTRA [facility] documented in this encounter Visit Diagnoses Not on filedocumented in this encounter
--- OUTSIDE RECORDS SUMMARY | 2022-01-04 06:44 | XMS_ITS | Encounter Summary ---
:1945 Author Organization [facility] Address [address] [place] [address] Care Team Providers Name Role Phone Unavailable Primary Care Provider Unavailable Encounter Details Date Type Department Care Team Description 01/27/2021 Orders Only [facility] O f Ernie Guzmán MD [address] [place] [address] [place], [place] [phone] (Wo rk) Social History Tobacco Use [...] Volume Laterality 01/27/2021 01/28/2021 10:1 8 PM EMPLOYMENT INSTRUCTIONAL ASSOCIATE Narrative [facility]PS S[facility]RA [facility] - 01/29/2021 Unless otherwise specified, test(s) performed at: [facility], [address] [place] [address] CHANNEL PROCESS SUPERVISOR: Alec Payan M.D. For any questions, [...] Volume Laterality 01/27/2021 01/28/2021 10:4 1 PM EMPLOYMENT INSTRUCTIONAL ASSOCIATE Narrative APS SPECTRA [facility] - 01/29/2021 Unless otherwise specified, test(s) performed at: [facility], [address] [place] [address] CHANNEL PROCESS SUPERVISOR: Alec Payan M.D. For any questions, please call customer service at FREQUENCY:OTHER Resulting Agency Comment Specimen source: Serum Ernie Pompa MD LAB BLOOD ORDERABLES Performing Organization Address City/State/ZIP Code Phon e Number APS SPECTRA [facility] documented in this encounter Visit Diagnoses Not on filedocumented in this encounter
--- OUTSIDE RECORDS SUMMARY | 2022-01-04 06:44 | XMS_ITS | Encounter Summary ---
:1945 Author Organization [facility] Address [address] [place] [address] Care Team Providers Name Role Phone Unavailable Primary Care Provider Unavailable Encounter Details Date Type Department Care Team Description 05/12/2021 Orders Only [facility] O f Ernie Guzmán MD [address] [place] [address] [place], [place] [phone] (Wo rk) Social History Tobacco Use [...] / Volume Laterality 05/12/2021 05/13/2021 1:22 PM FINANCE OFFICER Narrative APS SPECTRA [facility] - 05/13/2021 Unless otherwise specified, test(s) performed at: [facility], [address] [place] [address] FUNCTIONAL MENTAL DISABILITY TEACHER: Alec Payan M.D. For any questions, please call customer service at FREQUENCY:OTHER Resulting Agency Comment Specimen source: Blood Ernie Pompa MD LAB BLOOD ORDERABLES Performing Organization Address City/State/ZIP Code Phon e Number [facility]PS SPECTRA [facility] documented in this encounter Visit Diagnoses Not on filedocumented in this encounter
--- OUTSIDE RECORDS SUMMARY | 2022-01-04 06:44 | XMS_ITS | Encounter Summary ---
:1945 Author Organization [facility] Address [address] [place] [address] Care Team Providers Name Role Phone Unavailable Primary Care Provider Unavailable Encounter Details Date Type Department Care Team Description 12/30/2020 Treatment [facility] O Ernie Gómez MD [address] [place] [address] [place], [place] [address] [phone] (Wo rk) Social History Tobacco Use Types Packs/Day Years Used Date Smoking Tobacco: Unknown Comments: Smoking History Info:Patient n ot screened Sex Assigned at Date Recorded Not on file documented as of this encounter Miscellaneous Notes Dialysis Note - Ernie Pompa MD - 12/30/2020 11:49 AM CDT Date: Dec 30, 2020 Patient Name: Shaun Ocampo : 1945 Chart #: [id number] Sex: M This patient was personally seen [...] AM ) BP (sit): 117/57 AP(-) / CLOTH BIN PACKER: 240/207 Pulse: 75 Chairside data as of [...] 2.0 mcg ORAL Every Treatment 12/30/2020 12/29/2021 TACKER OFF: Ernie Pompa MD LOCATION: [facility] [phone] SCHEDULE: -- 2nd Shift EDW: kg. 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 06/10: Doing well overall, no new complaints, [...] Went to Urgent care -> ER in [place] yesterday,CT with R hydro but no obstructive [...] prescription. Vascular Access Assessment Type of access: [id number]/2019 Surgeon Annita GARDNER Access working well Anemia [...] at goal. Intact PTH is at goal. Printed Circuit Board Pcb Designer will adjust binders and vitamin D per [...]
--- OUTSIDE RECORDS SUMMARY | 2022-01-04 06:44 | XMS_ITS | Encounter Summary ---
:1945 Author Organization [facility] Address [address] [place] [address] Care Team Providers Name Role Phone Unavailable Primary Care Provider Unavailable Encounter Details Date Type Department Care Team Description 02/10/2021 Orders Only [facility] O f Ernie Guzmán MD [address] [place] [address] [place], [place] [phone] (Wo rk) Social History Tobacco Use [...] / Volume Laterality 02/10/2021 02/12/2021 2:38 PM OFFICE TECHNOLOGY INSTRUCTOR Narrative APS SPECTRA [facility] - 02/12/2021 Unless otherwise specified, test(s) performed at: [facility], [address] [place] [address] PROSTHETICS LAB TECHNICIAN: Alec Payan M.D. For any questions, please call customer service at FREQUENCY:OTHER Resulting Agency Comment Specimen source: Blood Ernie Pompa MD LAB BLOOD ORDERABLES Performing Organization Address City/State/ZIP Code Phon e Number APS SPECTRA [facility] documented in this encounter Visit Diagnoses Not on filedocumented in this encounter
--- OUTSIDE RECORDS SUMMARY | 2022-01-04 06:44 | XMS_ITS | Encounter Summary ---
:1945 Author Organization [facility] Address [address] [place] [address] Care Team Providers Name Role Phone Unavailable Primary Care Provider Unavailable Encounter Details Date Type Department Care Team Description 04/28/2021 Orders Only [facility] O f Ernie Guzmán MD [address] [place] [address] [place], [place] [phone] (Wo rk) Social History Tobacco Use [...] Volume Laterality 04/28/2021 04/29/2021 12:1 6 PM PHYSICAL EDUCATION DEPARTMENT CHAIR Narrative APS SPECTRA [facility] - 04/29/2021 Unless otherwise specified, test(s) performed at: [facility], [address] [place] [address] SILHOUETTE ARTIST: Alec Payan M.D. For any questions, please call customer service at FREQUENCY:OTHER Resulting Agency Comment Specimen source: Blood Ernie Pompa MD LAB BLOOD ORDERABLES Performing Organization Address City/State/ZIP Code Phon e Number APS SPECTRA [facility] documented in this encounter Visit Diagnoses Not on filedocumented in this encounter
--- OUTSIDE RECORDS SUMMARY | 2022-01-04 06:44 | XMS_ITS | Encounter Summary ---
:1945 Author Organization [facility] Address [address] [place] [address] Care Team Providers Name Role Phone Unavailable Primary Care Provider Unavailable Encounter Details Date Type Department Care Team Description 02/24/2021 Orders Only [facility] O f Ernie Guzmán MD [address] [place] [address] [place], [place] [phone] (Wo rk) Social History Tobacco Use [...] / Volume Laterality 02/24/2021 02/25/2021 6:54 PM VICE PRESIDENT OF CONTRACTS Narrative APS SPECTRA [facility] - 02/26/2021 Unless otherwise specified, test(s) performed at: [facility], [address] [place] [address] FLY TIER: Alec Payan M.D. For any questions, please call customer service at FREQUENCY:OTHER Resulting Agency Comment Specimen source: Serum Ernie Pompa MD LAB BLOOD ORDERABLES Performing Organization Address City/[facility]/ZIP Code Phon e Number APS SPECTRA [facility] (ABNORMAL) HEMATOLOGY (02/24/2021) Analysis Performed At Patho logist Time Signature Hemoglobin 10.2 (L) 14.0 - APS SPECTRA 18.0 g/dL [facility] Hemoglobin x 3 30.6 (L) 42.0 - APS SPECTRA 54.0 % [facility] Specimen (Source) Anatomical Collection Method Collection Time Re ceived Time Location / / Volume Laterality 02/24/2021 02/25/2021 10:2 3 AM VICE PRESIDENT OF CONTRACTS Narrative APS SPECTRA [facility] - 02/25/2021 Unless otherwise specified, test(s) performed at: [facility], [address] [place] [address] FLY TIER: Alec Payan M.D. For any questions, please call customer service at FREQUENCY:OTHER Resulting Agency Comment Specimen source: Blood Ernie Pompa MD LAB BLOOD ORDERABLES Performing Organization Address City/[facility] Phon e Number APS SPECTRA [facility] documented in this encounter Visit Diagnoses Not on filedocumented in this encounter
--- OUTSIDE RECORDS SUMMARY | 2022-01-04 06:44 | XMS_ITS | Encounter Summary ---
:1945 Author Organization [facility] Address [address] [place] [address] Care Team Providers Name Role Phone Unavailable Primary Care Provider Unavailable Encounter Details Date Type Department Care Team Description 03/10/2021 Orders Only [facility] O f Ernie Guzmán MD [address] [place] [address] [place], [place] [phone] (Wo rk) Social History Tobacco Use [...] Volume Laterality 03/10/2021 03/11/2021 10:5 0 AM ASSOCIATE PROFESSOR OF MEDICINE Narrative APS SPECTRA [facility] - 03/11/2021 Unless otherwise specified, test(s) performed at: [facility], [address] [place] [address] CHILD DAY CARE TEACHER: Alec Payan M.D. For any questions, please call customer service at FREQUENCY:OTHER Resulting Agency Comment Specimen source: Blood Ernie Pompa MD LAB BLOOD ORDERABLES Performing Organization Address City/State/ZIP Code Phon e Number APS SPECTRA [facility] documented in this encounter Visit Diagnoses Not on filedocumented in this encounter
--- OUTSIDE RECORDS SUMMARY | 2022-01-04 06:44 | XMS_ITS | Encounter Summary ---
:1945 Author Organization [facility] Address [address] [place] [address] Care Team Providers Name Role Phone Unavailable Primary Care Provider Unavailable Encounter Details Date Type Department Care Team Description 05/05/2021 Treatment [facility] O f Ernie Guzmán MD [address] [place] [address] [place], [place] [address] [phone] (Wo rk) Social History Tobacco Use Types Packs/Day Years Used Date Smoking Tobacco: Unknown Comments: Smoking History Info:Patient n ot screened Sex Assigned at Date Recorded Not on file documented as of this encounter Miscellaneous Notes Dialysis Note - Ernie Pompa MD - 05/05/2021 10:18 AM CST Date: May 05, 2021 Patient Name: Shaun Ocampo : 1945 Chart #: [id number] Sex: M This patient was personally seen [...] AM ) BP (sit): 110/50 AP(-) / SOLID WASTE ENGINEER: 174/144 Pulse: 73 Chairside data as of [...] mcg IVP Every 2 weeks 04/28/2021 04/27/2022 FINANCIAL INSTITUTION PRESIDENT: Ernie Pompa MD LOCATION: [phone] SCHEDULE: M-W-F 2nd Shift ACCESS: EDW: kg. 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 06/10: Doing well overall, no new complaints, [...] Went to Urgent care -> ER in [place] yesterday,CT with R hydro but no obstructive [...] had infiltration last week, dialyzed at [facility] on Sat and went well, [...] (03/24/21) Vascular Access Assessment: Type of access: [id number]/2019 Surgeon - Lary GARDNER Access working well [...]
--- OUTSIDE RECORDS SUMMARY | 2022-01-04 06:44 | XMS_ITS | Encounter Summary ---
:1945 Author Organization [facility] Address [address] [place] [address] Care Team Providers Name Role Phone Unavailable Primary Care Provider Unavailable Encounter Details Date Type Department Care Team Description 04/14/2021 Orders Only [facility] O f Ernie Guzmán MD [address] [place] [address] [place], [place] [phone] (Wo rk) Social History Tobacco Use [...] Volume Laterality 04/14/2021 04/15/2021 10:0 0 AM ANTIQUE DEALER Narrative APS SPECTRA [facility] - 04/15/2021 Unless otherwise specified, test(s) performed at: [facility], [address] [place] [address] FIELD SERVICE TECHNICIAN POULTRY: Alec Payan M.D. For any questions, please call customer service at FREQUENCY:OTHER Resulting Agency Comment Specimen source: Blood Ernie Pompa MD LAB BLOOD ORDERABLES Performing Organization Address City/State/ZIP Code Phon e Number APS SPECTRA [facility] documented in this encounter Visit Diagnoses Not on filedocumented in this encounter
--- OUTSIDE RECORDS SUMMARY | 2022-01-04 06:44 | XMS_ITS | Encounter Summary ---
:1945 Author Organization [facility] Address [address] [place] [address] Care Team Providers Name Role Phone Unavailable Primary Care Provider Unavailable Encounter Details Date Type Department Care Team Description 03/10/2021 Treatment [facility] O Ernie Gómez MD [address] [place] [address] [place], [place] [phone] (Wo rk) Social History Tobacco Use Types Packs/Day Years Used Date Smoking Tobacco: Unknown Comments: Smoking History Info:Patient n ot screened Sex Assigned at Date Recorded Not on file documented as of this encounter Miscellaneous Notes Dialysis Note - Ernie Pompa MD - 03/10/2021 9:40 AM CST Date: Mar 10, 2021 Patient Name: Shaun Ocampo : 1945 Chart #: [id number] Sex: M This patient was personally seen [...] AM ) BP (sit): 116/55 AP(-) / MORTGAGE PROCESSING MANAGER: 171/146 Pulse: 70 Chairside data as of [...] 0.25 mcg ORAL Every Treatment 03/08/2021 03/07/2022 MEDICATION SPECIALIST: Ernie Pompa MD LOCATION: [phone] SCHEDULE: -W-F 2nd Shift ACCESS: EDW: kg. DIALYZER: HD DURATION: NEEDLE SIZE: ANTICOAG: BATH: QB: ml/min QD: ml/min Subjective Tolerating dialysis well. 03/10/21: He has been marching in place and increasing duration to try and gain endurance, feels this is helping. Fluid gains continue to be high, no chance of reaching EDW this week without an extra run and we discussed going to [place] tomorrow for UF only run and he [...] again today, may need extra run at [place] if can't get down over next week. [...] Went to Urgent care -> ER in [place] yesterday,CT with R hydro but no obstructive [...] (12/23/20) Vascular Access Assessment: Type of access: [id number]/2019 Surgeon - Lary GARDNER Access working well [...]
--- OUTSIDE RECORDS SUMMARY | 2022-01-04 06:44 | XMS_ITS | Encounter Summary ---
:1945 Author Organization [facility] Address [address] [place] [address] Care Team Providers Name Role Phone Unavailable Primary Care Provider Unavailable Encounter Details Date Type Department Care Team Description 03/03/2021 Orders Only [facility] O f Ernie Guzmán MD [address] [place] [address] [place], [place] [phone] (Wo rk) Social History Tobacco Use [...] / Volume Laterality 03/03/2021 03/04/2021 2:44 PM DAY CARE DIRECTOR Narrative [facility]PS SPECTRA [facility] - 03/05/2021 Unless otherwise specified, test(s) performed at: [facility], [address] [place] [address] CYLINDER PRESS OPERATOR APPRENTICE: Alec Payan M.D. For any questions, [...] / Volume Laterality 03/03/2021 03/04/2021 1:44 PM DAY CARE DIRECTOR Narrative [facility] - 03/04/2021 Unless otherwise specified, test(s) performed at: [facility], [address] [place] [address] CYLINDER PRESS OPERATOR APPRENTICE: Alec Payan M.D. For any questions, please call customer service at FREQUENCY:OTHER Resulting Agency Comment Specimen source: Blood Ernie Pompa MD LAB BLOOD ORDERABLES Performing Organization Address City/[facility] Phon e Number [facility] SPECTRA [facility] documented in this encounter Visit Diagnoses Not on filedocumented in this encounter
--- OUTSIDE RECORDS SUMMARY | 2022-01-04 06:44 | XMS_ITS | Encounter Summary ---
:1945 Author Organization [facility] Address [address] [place] [address] Care Team Providers Name Role Phone Unavailable Primary Care Provider Unavailable Encounter Details Date Type Department Care Team Description 02/03/2021 Orders Only [facility] f Ernie Guzmán MD [phone] [place] [address] [place], [place] [phone] (Wo rk) Social History Tobacco Use [...] Volume Laterality 02/03/2021 02/04/2021 11:2 7 AM INSPECTOR EXPERIMENTAL ASSEMBLY Narrative [facility] - 02/04/2021 Unless otherwise specified, test(s) performed at: [facility], [address] [place] [address] INSPECTOR RADAR AND ELECTRONICS: Alec Payan M.D. For any questions, please call customer service at FREQUENCY:OTHER Resulting Agency Comment Specimen source: Blood Ernie Pompa MD LAB BLOOD ORDERABLES Performing Organization Address City/State/ZIP Code Phon e Number [facility] documented in this encounter Visit Diagnoses Not on filedocumented in this encounter
--- OUTSIDE RECORDS SUMMARY | 2022-01-04 06:44 | XMS_ITS | Encounter Summary ---
:1945 Author Organization [facility] Address [address] [place] [address] Care Team Providers Name Role Phone Unavailable Primary Care Provider Unavailable Encounter Details Date Type Department Care Team Description 01/13/2021 Treatment [facility] O Ernie Gómez MD [address] [place] [address] [place], [place] [phone] [phone] (Wo rk) Social History Tobacco Use Types Packs/Day Years Used Date Smoking Tobacco: Unknown Comments: Smoking History Info:Patient n ot screened Sex Assigned at Date Recorded Not on file documented as of this encounter Miscellaneous Notes Dialysis Note - Ernie Pompa MD - 01/13/2021 11:13 AM CDT Date: Jan 13, 2021 Patient Name: Shaun Ocampo : 1945 Chart #: [id number] Sex: M This patient was personally seen [...] AM ) BP (sit): 122/55 AP(-) / CRAY FISHING HAND: n/a Pulse: 70 Chairside data as of [...] 2.0 mcg ORAL Every Treatment 12/30/2020 12/29/2021 SHELL PRESS OPERATOR: Ernie Pompa MD LOCATION: [facility] [phone] SCHEDULE: -- 2nd Shift ACCESS: EDW: kg. [...] Went to Urgent care -> ER in [place] yesterday,CT with R hydro but no obstructive [...] (10/21/20) Vascular Access Assessment: Type of access: [id number]/2019 Surgeon - Lary GARDNER Access working well [...]
--- OUTSIDE RECORDS SUMMARY | 2022-01-04 06:44 | XMS_ITS | Encounter Summary ---
:1945 Author Organization [facility] Address [address] [place] [address] Care Team Providers Name Role Phone Unavailable Primary Care Provider Unavailable Encounter Details Date Type Department Care Team Description 04/21/2021 Orders Only [facility] O f Ernie Guzmán MD [address] [place] [address] [place], [place] [phone] (Wo rk) Social History Tobacco Use [...] [facility]/ZIP Code Phon e Number KAMERON (ABNORMAL) Spectrae Chemistry (04/21/2021) athologist Signature PTH 1,441 (H) 16 - 80 APS SPECTRA pg/mL [facility] Specimen (Source) Anatomical Collection Method Collection Time Re ceived Time Location / / Volume Laterality 04/21/2021 04/22/2021 1:39 PM [employer] Narrative [facility]PS SPECTRA [facility] - 04/23/2021 Unless otherwise specified, test(s) performed at: [facility], [address] [place], [place] [id number] ANIMAL CAREGIVER: Alec Payan M.D. For any questions, please call customer service at FREQUENCY:MONTHLY Resulting Agency Comment Specimen source: Plasma Ernie Pompa MD LAB BLOOD ORDERABLES Performing Organization Address [facility] Phon e Number [facility]PS SPECTRA [facility] IMMUNO CHEMISTRY (04/21/2021) athologist [facility] Hep B Surface Negative Negative APS SPECTRA Ag [facility] Specimen (Source) Anatomical Collection Method Collection Time Re ceived Time Location / / Volume Laterality 04/21/2021 04/22/2021 3:00 PM [employer] Narrative [facility]PS SPECTRA [facility] - 04/22/2021 Unless otherwise specified, test(s) performed at: [facility], [address] [place] [address] ANIMAL CAREGIVER: Alec Payan M.D. For any questions, please call customer service at FREQUENCY:MONTHLY Resulting Agency Comment Specimen source: Serum Ernie Pompa MD LAB BLOOD ORDERABLES Performing Organization Address City/[facility]/ZIP [facility] Phon e Number [facility]PS SPECTRA [facility] HD KINETICS (04/21/2021) athologist Signature % Urea 72 65 - 80 % APS SPECTRA Reduction [facility] Specimen (Source) Anatomical Collection Method Collection Time Re ceived Time Location / / Volume Laterality 04/21/2021 04/22/2021 5:02 PM [employer] Resulting Agency Comment Specimen source: Plasma Ernie Pompa MD LAB BLOOD ORDERABLES Performing Organization Address City/State/ZIP Code Phon e Number [facility]PECT[facility] POST CHEMISTRY (04/21/2021) P athologist Signature BUN Post 17 6 - 19 APS SPECTRA Dialysis mg/dL [facility] Specimen (Source) Anatomical Collection Method Collection Time Re ceived Time Location / / Volume Laterality 04/21/2021 04/22/2021 5:01 PM [employer] Narrative [facility]PS SPECTRA [facility] - 04/22/2021 Unless otherwise specified, test(s) performed at: [facility], [address] [place] [address] ANIMAL CAREGIVER: Alec Payan M.D. For any questions, please [...] / Volume Laterality 04/21/2021 04/22/2021 3:00 PM [employer] Narrative [facility] SPECTRA [facility] - 04/22/2021 Unless otherwise specified, test(s) performed at: [facility], [address] [place] [address] ANIMAL CAREGIVER: Alec Payan M.D. For any questions, please [...] / Volume Laterality 04/21/2021 04/22/2021 1:17 PM [employer] Narrative [facility]PS SPECTRA [facility] - 04/22/2021 Unless otherwise specified, test(s) performed at: [facility], [address] [place] [address] ANIMAL CAREGIVER: Alec Payan M.D. For any questions, please call customer service at FREQUENCY:MONTHLY Resulting Agency Comment Specimen source: Blood Ernie Pompa MD LAB BLOOD ORDERABLES Performing Organization Address City/State/ZIP Code Phon e Number [facility] SPECTRA [facility] documented in this encounter Visit Diagnoses Not on filedocumented in this encounter
--- OUTSIDE RECORDS SUMMARY | 2022-01-04 06:44 | XMS_ITS | Encounter Summary ---
:1945 Author Organization [facility] Address [address] [place] [address] Care Team Providers Name Role Phone Unavailable Primary Care Provider Unavailable Encounter Details Date Type Department Care Team Description 03/24/2021 Treatment [facility] f Ernie Guzmán MD [address] [place] [address] [place], [place] [phone] (Wo rk) Social History Tobacco Use Types Packs/Day Years Used Date Smoking Tobacco: Unknown Comments: Smoking History Info:Patient n ot screened Sex Assigned at Date Recorded Not on file documented as of this encounter Miscellaneous Notes Dialysis Note - Ernie Pompa MD - 03/24/2021 9:04 AM CST Date: Mar 24, 2021 Patient Name: Shaun Ocampo : 1945 Chart #: [id number] Sex: M This patient was personally seen [...] AM ) BP (sit): 114/54 AP(-) / EXTRACTING MACHINE OPERATOR: 170/152 Pulse: 69 Chairside data as [...] 0.25 mcg ORAL Every Treatment 03/08/2021 03/07/2022 CLIPMAN: Ernie Pompa MD LOCATION: [phone] SCHEDULE: M-W-F 2nd Shift EDW: kg. DIALYZER: [...] extra run and we discussed going to [place] tomorrow for UF only run and he [...] again today, may need extra run at [place] if can't get down over next week. 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 06/10: Doing well overall, no new complaints, [...] Went to Urgent care -> ER in [place] yesterday,CT with R hydro but no obstructive [...] He had infiltration last week, dialyzed at [facility] on Sat and went well, access ok [...] prescription. Vascular Access Assessment Type of access: [id number]/2019 Surgeon Annita GARDNER Access working well Anemia [...] goal. Intact PTH is at goal. Supervisor Cabinetmaker will adjust binders and vitamin D per [...]
--- OUTSIDE RECORDS SUMMARY | 2022-01-04 06:44 | XMS_ITS | Encounter Summary ---
:1945 Author Organization [facility] Address [address] [place] [address] Care Team Providers Name Role Phone Unavailable Primary Care Provider Unavailable Encounter Details Date Type Department Care Team Description 03/24/2021 Orders Only [facility] O f Ernie uGzmán MD [address] [place] [address] [place], [place] [phone] (Wo rk) Social History Tobacco Use [...] and its performa nce characteristics determined by [facility]. It has not been cleared or approved by the FDA. The laboratory is regulated under CLIA a s qualified to perform high complexity testing. This test is used fo r clinical purposes. It should not be regarded as investigational or fo r research. Specimen (Source) Anatomical Collection Method Collection Time Re ceived Time Location / / Volume Laterality 03/24/2021 03/26/2021 11:3 3 AM BEVERAGE SERVER Narrative APS SPECTRA [facility] - 03/29/2021 Unless otherwise specified, test(s) performed at: [facility], [address] [place] [address] HIGH CLIMBER: Alec Payan M.D. For any questions, please [...] above test result was obtained using Siemens EG Technologyaur XP chemiluminescent method. Results obtaine d with different assay methods or kits cannot be used interchangeably. Specimen (Source) Anatomical Collection Method Collection Time Re ceived Time Location / / Volume Laterality 03/24/2021 03/26/2021 12:2 9 PM BEVERAGE SERVER Resulting Agency Comment Specimen source: Serum Ernie Pompa MD LAB BLOOD ORDERABLES Performing Organization Address [facility] Code Phon e Number APS [...] BLOOD ORDERABLES Performing Organization Address [facility] Phon e Number KAMERON SPECIAL CHEMISTRY (03/24/2021) P athologist Signature Vitamin D, 38.3 30.0 - APS SPECTRA 25-OH, Total 100.0 [facility] ng/mL Comment: Vitamin D Status Classification: Deficiency ? <10.0 ng/mL Insufficiency ?10.0-30.0 ng/mL Sufficiency ?30.0-100.0 ng/mL Toxicity ? >100.0 ng/mL Specimen (Source) Anatomical Collection Method Collection Time Re ceived Time Location / / Volume Laterality 03/24/2021 03/26/2021 12:2 9 PM BEVERAGE SERVER Narrative APS SPECTRA [facility] - 03/27/2021 Unless otherwise specified, test(s) performed at: [facility], [address] [place] [address] HIGH CLIMBER: Alec Payan M.D. For any questions, please call customer service at FREQUENCY:MONTHLY Resulting Agency Comment Specimen source: Serum Ernie Pompa MD LAB BLOOD BANK TEST ORDERABL ES Performing Organization Address City/[facility] Phon e Number APS SPECTRA [facility] (ABNORMAL) Spectrae Chemistry (03/24/2021) P athologist Signature PTH 977 (H) 16 - 80 APS SPECTRA pg/mL [facility] Specimen (Source) Anatomical Collection Method Collection Time Re ceived Time Location / / Volume Laterality 03/24/2021 03/26/2021 11:4 0 AM BEVERAGE SERVER Narrative APS SPECTRA [facility] - 03/26/2021 Unless otherwise specified, test(s) performed at: [facility], [address] [place] [address] HIGH CLIMBER: Alec Payan M.D. For any questions, please call customer service at FREQUENCY:MONTHLY Resulting Agency Comment Specimen source: Plasma Ernei Pompa MD LAB BLOOD ORDERABLES Performing Organization Address [facility] Phon e Number APS SPECTRA [facility] HD KINETICS (03/24/2021) P athologist Signature % Urea 75 65 - 80 % APS SPECTRA Reduction [facility] Specimen (Source) Anatomical Collection Method Collection Time Re ceived Time Location / / Volume Laterality 03/24/2021 03/26/2021 2:17 PM BEVERAGE SERVER Resulting Agency Comment Specimen source: Plasma Ernie Pompa MD LAB BLOOD ORDERABLES Performing Organization Address [facility] Code Phon e Number APS SPECTRA [facility] POST CHEMISTRY (03/24/2021) P athologist Signature BUN Post 16 6 - 19 APS SPECTRA Dialysis mg/dL [facility] Specimen (Source) Anatomical Collection Method Collection Time Re ceived Time Location / / Volume Laterality 03/24/2021 03/26/2021 2:15 PM BEVERAGE SERVER Narrative APS SPECTRA [facility] - 03/26/2021 Unless otherwise specified, test(s) performed at: [facility], [address] [place] [address] HIGH CLIMBER: Alec Payan M.D. For any questions, please call customer service at FREQUENCY:MONTHLY Resulting Agency Comment Specimen source: Plasma Ernie Pompa MD LAB BLOOD ORDERABLES Performing Organization Address [facility] Phon e Number APS SPECTRA [facility] (ABNORMAL) Spectrae Chemistry (03/24/2021) [facility] gist Method Time Signature BUN 63 [...] Volume Laterality 03/24/2021 03/26/2021 12:2 9 PM BEVERAGE SERVER Narrative APS SPECTRA [facility] - 03/28/2021 Unless otherwise specified, test(s) performed at: [facility], [address] [place] [address] HIGH CLIMBER: Alec Payan M.D. For any questions, please [...] Volume Laterality 03/24/2021 03/26/2021 11:5 3 AM BEVERAGE SERVER Narrative APS SPECTRA [facility] - 03/26/2021 Unless otherwise specified, test(s) performed at: [facility], [address] [place] [address] HIGH CLIMBER: Alec Payan M.D. For any questions, please call customer service at FREQUENCY:MONTHLY Resulting Agency Comment Specimen source: Blood Ernie Pompa MD LAB BLOOD ORDERABLES Performing Organization Address City/[facility]/ZIP [facility] Phon e Number APS SPECTRA [facility] documented in this encounter Visit Diagnoses Not on filedocumented in this encounter
--- OUTSIDE RECORDS SUMMARY | 2022-01-04 06:44 | XMS_ITS | Encounter Summary ---
:1945 Author Organization [facility] Address [address] [place] [address] Care Team Providers Name Role Phone Unavailable Primary Care Provider Unavailable Encounter Details Date Type Department Care Team Description 02/03/2021 Treatment [facility] O Ernie Gómez MD [address] [place] [address] [place], [place] [phone] (Wo rk) Social History Tobacco Use Types Packs/Day Years Used Date Smoking Tobacco: Unknown Comments: Smoking History Info:Patient n ot screened Sex Assigned at Date Recorded Not on file documented as of this encounter Miscellaneous Notes Dialysis Note - Ernie Pompa MD - 02/03/2021 11:33 AM CST Date: Feb 03, 2021 Patient Name: Shaun Ocampo : 1945 Chart #: [id number] Sex: M This patient was personally seen [...] 2.0 mcg ORAL Every Treatment 12/30/2020 12/29/2021 CONFERENCE ASSISTANT: Ernie Pompa MD LOCATION: [facility] [phone] SCHEDULE: M-W- 2nd Shift ACCESS: EDW: kg. 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 06/10: Doing well overall, no new complaints, [...] Went to Urgent care -> ER in [place] yesterday,CT with R hydro but no obstructive [...] He had infiltration last week, dialyzed at [facility] on Sat and went well, access [...] (11/18/20) Vascular Access Assessment: Type of access: [id number]/2019 Surgeon - Lary GARDNER Access working well [...]
--- OUTSIDE RECORDS SUMMARY | 2022-01-04 06:45 | XMS_ITS | Encounter Summary ---
:1945 Author Organization [facility] Address [address] [place] [address] Care Team Providers Name Role Phone Unavailable Primary Care Provider Unavailable Encounter Details Date Type Department Care Team Description 2020 Treatment [facility] f Ernie Guzmán MD [address] [place] [address] [place], [place] [phone] (Wo rk) Social History Tobacco Use Types Packs/Day Years Used Date Smoking Tobacco: Unknown Comments: Smoking History Info:Patient n ot screened Sex Assigned at Date Recorded Not on file documented as of this encounter Miscellaneous Notes Dialysis Note - Ernie Pompa MD - 2020 10:59 AM CDT Date: 2020 Patient Name: hSaun Ocampo : 1945 Chart #: [id number] Sex: M This patient was personally seen for a basic visit as part of routine weekly dialysis care. A reviewof the dialysis treatment, blood pressure, estimated dry weight and recent lab values was made. These were discussed with the patient and staff as necessary. FACILITIES CUSTODIAN: Ernie Pompa MD LOCATION: [phone] SCHEDULE: M-W-F 2nd Shift ACCESS: EDW: kg. 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 06/10: Doing well overall, no new complaints, [...] Went to Urgent care -> ER in [place] yesterday,CT with R hydro but no obstructive [...] He had infiltration last week, dialyzed at [facility] on Sat and went well, access [...] (05/20/20) Vascular Access Assessment: Type of access: [id number]/2019 Surgeon - Lary GARDNER Access working well Impression and Plan No changes in prescription Discussed fluid gains, possible need for increased time on HD but he really wants to avoid more [id number]. Discussed possible need for extra treatments occasionally [...]
--- OUTSIDE RECORDS SUMMARY | 2022-01-04 06:45 | XMS_ITS | Encounter Summary ---
:1945 Author Organization [facility] Address [address] [place] [address] Care Team Providers Name Role Phone Unavailable Primary Care Provider Unavailable Encounter Details Date Type Department Care Team Description 09/16/2020 Orders Only [facility] O f Ernie Guzmán MD [address] [place] [address] [place], [place] [phone] (Wo rk) Social History Tobacco Use [...] 09/17/2020 Unless otherwise specified, test(s) performed at: [facility], [address] [place] [address] SIZE TESTER: Alec Payan M.D. For any questions, please call customer service at FREQUENCY:OTHER Resulting Agency Comment Specimen source: Blood Ernie Pompa MD LAB BLOOD ORDERABLES Performing Organization Address City/State/ZIP Code Phon e Number APS SPECTRA [facility] documented in this encounter Visit Diagnoses Not on filedocumented in this encounter
--- OUTSIDE RECORDS SUMMARY | 2022-01-04 06:45 | XMS_ITS | Encounter Summary ---
:1945 Author Organization [facility] Address [address] [place] [address] Care Team Providers Name Role Phone Unavailable Primary Care Provider Unavailable Encounter Details Date Type Department Care Team Description 09/25/2020 Orders [facility] O f Ernie Guzmán MD [address] [place] [address] [place], [place] [phone] (Wo rk) Social History Tobacco Use [...] 09/26/2020 Unless otherwise specified, test(s) performed at: [facility], [address] [place] [address] GALLEY WORKER: Alec Payan M.D. For any questions, please call customer service at FREQUENCY:OTHER Resulting Agency Comment Specimen source: Serum Ernie Pompa MD LAB BLOOD ORDERABLES Performing Organization Address City/State/ZIP Code Phon e Number APS SPECTRA [facility] documented in this encounter Visit Diagnoses Not on filedocumented in this encounter
--- OUTSIDE RECORDS SUMMARY | 2022-01-04 06:45 | XMS_ITS | Encounter Summary ---
:1945 Author Organization [facility] Address [address] [place] [address] Care Team Providers Name Role Phone Unavailable Primary Care Provider Unavailable Encounter Details Date Type Department Care Team Description 09/09/2020 Orders [facility] O f Ernie Guzmán MD [address] [place] [address] [place], [place] [phone] (Wo rk) Social History Tobacco Use [...] 09/11/2020 Unless otherwise specified, test(s) performed at: [facility], [address] [place] [address] DATACAP DEVELOPER: Alec Payan M.D. For any questions, please call customer service at FREQUENCY:OTHER Resulting Agency Comment Specimen source: Blood Ernie Pompa MD LAB BLOOD ORDERABLES Performing Organization Address City/State/ZIP Code Phon e Number APS SPECTRA [facility] documented in this encounter Visit Diagnoses Not on filedocumented in this encounter
--- OUTSIDE RECORDS SUMMARY | 2022-01-04 06:45 | XMS_ITS | Encounter Summary ---
:1945 Author Organization [facility] Address [address] [place] [address] Care Team Providers Name Role Phone Unavailable Primary Care Provider Unavailable Encounter Details Date Type Department Care Team Description 11/11/2020 [facility] O f Ernie Guzmán MD [address] [place] [address] [place], [place] [phone] (Wo rk) Social History Tobacco Use [...] 11/12/2020 Unless otherwise specified, test(s) performed at: [facility], [address] [place] [address] BROADCAST TRAFFIC COORDINATOR: lAec Payan M.D. For any questions, please call customer service at FREQUENCY:OTHER Resulting Agency Comment Specimen source: Blood Ernie Pompa MD LAB BLOOD ORDERABLES Performing Organization Address City/State/ZIP Code Phon e Number APS SPECTRA [facility] documented in this encounter Visit Diagnoses Not on filedocumented in this encounter
--- OUTSIDE RECORDS SUMMARY | 2022-01-04 06:45 | XMS_ITS | Encounter Summary ---
:1945 Author Organization [facility] Address [address] [place] [address] Care Team Providers Name Role Phone Unavailable Primary Care Provider Unavailable Encounter Details Date Type Department Care Team Description 09/09/2020 Treatment [facility] f Ernie Guzmán MD [address] [place] [address] [place], [place] [phone] [phone] (Wo rk) Social History Tobacco Use Types Packs/Day Years Used Date Smoking Tobacco: Unknown Comments: Smoking History Info:Patient n ot screened Sex Assigned at Date Recorded Not on file documented as of this encounter Miscellaneous Notes Dialysis Note - Ernie Pompa MD - 09/09/2020 10:22 AM CDT Date: Sep 09, 2020 Patient Name: Shaun Ocampo : 1945 Chart #: [id number] Sex: M This patient was personally seen [...] AM ) BP (sit): 116/58 AP(-) / DRY CELL ASSEMBLY SUPERVISOR: 242/201 Pulse: 71 Chairside data as of [...] 06/26/2020 Access Flow [id number] 1359 > 2000 TRIMMING DEPARTMENT BLOCKER: Ernie Pompa MD LOCATION: [place] [phone] SCHEDULE: -- 2nd Shift ACCESS: EDW: kg. [...] for ureteral ?tumor early next month in [place]. 06/10: Doing well overall, no new complaints, [...] Went to Urgent care -> [place] yesterday,CT with R hydro but no obstructive [...] (06/24/20) Vascular Access Assessment: Type of access: [id number]/2019 Surgeon - Lary GARDNER Access working well [...]
--- OUTSIDE RECORDS SUMMARY | 2022-01-04 06:45 | XMS_ITS | Encounter Summary ---
:1945 Author Organization [facility] Address [address] [place] [address] Care Team Providers Name Role Phone Unavailable Primary Care Provider Unavailable Encounter Details Date Type Department Care Team Description 12/23/2020 Orders [facility] O f Ernie Guzmán MD [address] [place] [address] [place], [place] [phone] (Wo rk) Social History Tobacco Use [...] Provider LAB BLOOD ORDERABLES Performing Organization Address City/[facility]/ZIP Code Phon e Number KAMERON HD KINETICS (12/23/2020) P athologist Signature % Urea 75 65 - 80 % APS SPECTRA Reduction [facility] Specimen (Source) Anatomical Collection Method Collection Time Re ceived Time Location / / Volume Laterality 12/23/2020 12/24/2020 8:52 PM CDT Narrative APS SPECTRA [facility] - 12/25/2020 Unless otherwise specified, test(s) performed at: [facility], [address] [place], [place] [id number] SMALL ENGINE MECHANIC: Alec Payan M.D. For any questions, please call customer service at FREQUENCY:MONTHLY Resulting Agency Comment Specimen source: Serum Ernie Pompa MD LAB BLOOD ORDERABLES Performing Organization Address [facility] Phon e Number APS SPECTRA [facility] IMMUNO CHEMISTRY (12/23/2020) P athologist Signature Hep B Surface Negative Negative APS SPECTRA Ag [facility] Specimen (Source) Anatomical Collection Method Collection Time Re ceived Time Location / / Volume Laterality 12/23/2020 12/24/2020 8:51 PM CDT Narrative APS SPECTRA [facility] - 12/25/2020 Unless otherwise specified, test(s) performed at: [facility], [address] [place] [address] SMALL ENGINE MECHANIC: Alec Payan M.D. For any questions, please call customer service at FREQUENCY:MONTHLY Resulting Agency Comment Specimen source: Serum Ernie Pompa MD LAB BLOOD ORDERABLES Performing Organization Address City/[facility] Code Phon [...] 12/25/2020 Unless otherwise specified, test(s) performed at: [facility], [address] [place] [address] SMALL ENGINE MECHANIC: Alec Payan M.D. For any questions, [...] 12/25/2020 Unless otherwise specified, test(s) performed at: [facility], [address] [place] [address] SMALL ENGINE MECHANIC: Alec Payan M.D. For any questions, please call customer service at FREQUENCY:MONTHLY Resulting Agency Comment Specimen source: Plasma Ernie Pompa MD LAB BLOOD ORDERABLES Performing Organization Address City/[facility] Phon e Number APS SPECTRA [facility] POST CHEMISTRY (12/23/2020) P athologist Signature BUN Post 11 6 - 19 APS SPECTRA Dialysis mg/dL [facility] Specimen (Source) Anatomical Collection Method Collection Time Re ceived Time Location / / Volume Laterality 12/23/2020 12/24/2020 3:54 PM CDT Narrative APS SPECTRA [facility] - 12/24/2020 Unless otherwise specified, test(s) performed at: [facility], [address] [place] [address] SMALL ENGINE MECHANIC: Alec Payan M.D. For any questions, [...] 12/24/2020 Unless otherwise specified, test(s) performed at: [facility], [address] [place] [address] SMALL ENGINE MECHANIC: Alec Payan M.D. For any questions, please call customer service at FREQUENCY:MONTHLY Resulting Agency Comment Specimen source: Blood Ernie Pompa MD LAB BLOOD ORDERABLES Performing Organization Address City/State/ZIP Code Phon e Number APS SPECTRA [facility] documented in this encounter Visit Diagnoses Not on filedocumented in this encounter
--- OUTSIDE RECORDS SUMMARY | 2022-01-04 06:45 | XMS_ITS | Encounter Summary ---
:1945 Author Organization [facility] Address [address] [place] [address] Care Team Providers Name Role Phone Unavailable Primary Care Provider Unavailable Encounter Details Date Type Department Care Team Description 08/12/2020 [facility] Only [facility] O f Ernie Guzmán MD [address] [place] [address] [place], [place] [phone] (Wo rk) Social History Tobacco Use [...] 08/13/2020 Unless otherwise specified, test(s) performed at: [facility], [address] [place] [address] DOUGHNUT ICER: Alec Payan M.D. For any questions, please call customer service at FREQUENCY:OTHER Resulting Agency Comment Specimen source: Blood Ernie Pompa MD LAB BLOOD ORDERABLES Performing Organization Address City/State/ZIP Code Phon e Number APS SPECTRA [facility] documented in this encounter Visit Diagnoses Not on filedocumented in this encounter
--- OUTSIDE RECORDS SUMMARY | 2022-01-04 06:45 | XMS_ITS | Encounter Summary ---
:1945 Author Organization [facility] Address [address] [place] [address] Care Team Providers Name Role Phone Unavailable Primary Care Provider Unavailable Encounter Details Date Type Department Care Team Description 11/18/2020 Treatment [facility] O Ernie Gómez MD [address] [place] [address] [place], [place] [phone] (Wo rk) Social History Tobacco Use Types Packs/Day Years Used Date Smoking Tobacco: Unknown Comments: Smoking History Info:Patient n ot screened Sex Assigned at Date Recorded Not on file documented as of this encounter Miscellaneous Notes Dialysis Note - Ernie Pompa MD - 11/18/2020 9:48 AM CDT Date: Nov 18, 2020 Patient Name: Shaun Ocampo : 1945 Chart #: [id number] Sex: M This patient was personally seen [...] 1.5 mcg ORAL Every Treatment 11/02/2020 11/01/2021 UNLOADER: Ernie Pompa MD LOCATION: [phone] SCHEDULE: -- 2nd Shift EDW: kg. DIALYZER: [...] for ureteral ?tumor early next month in [place]. 06/10: Doing well overall, no new [...] Went to Urgent care -> ER in [place] yesterday,CT with R hydro but no obstructive [...] prescription. Vascular Access Assessment Type of access: [id number]/2019 Surgeon Annita KUMARW Access working well Anemia [...] above goal. Intact PTH is above goal. Soa Architect will adjust binders and vitamin D [...]
--- OUTSIDE RECORDS SUMMARY | 2022-01-04 06:45 | XMS_ITS | Encounter Summary ---
:1945 Author Organization [facility] Address [address] [place] [address] Care Team Providers Name Role Phone Unavailable Primary Care Provider Unavailable Encounter Details Date Type Department Care Team Description 12/16/2020 Orders Only [facility] O f Ernie Guzmán MD [address] [place] [address] [place], [place] [phone] (Wo rk) Social History Tobacco Use [...] 12/17/2020 Unless otherwise specified, test(s) performed at: [facility], [address] [place] [address] SMART GRID ENGINEER: Alec Payan M.D. For any questions, please call customer service at FREQUENCY:OTHER Resulting Agency Comment Specimen source: Blood Ernie Pompa MD LAB BLOOD ORDERABLES Performing Organization Address City/State/ZIP Code Phon e Number APS SPECTRA [facility] documented in this encounter Visit Diagnoses Not on filedocumented in this encounter
--- OUTSIDE RECORDS SUMMARY | 2022-01-04 06:45 | XMS_ITS | Encounter Summary ---
:1945 Author Organization [facility] Address [address] [place] [address] Care Team Providers Name Role Phone Unavailable Primary Care Provider Unavailable Encounter Details Date Type Department Care Team Description 10/28/2020 Orders [facility] O f Ernie Guzmán MD [address] [place] [address] [place], [place] [phone] (Wo rk) Social History Tobacco Use [...] 10/29/2020 Unless otherwise specified, test(s) performed at: [facility], [address] [place] [address] GLOVE TURNER AND FORMER: Alec Payan M.D. For any questions, please call customer service at FREQUENCY:OTHER Resulting Agency Comment Specimen source: Blood Ernie Pompa MD LAB BLOOD ORDERABLES Performing Organization Address City/State/ZIP Code Phon e Number APS SPECTRA [facility] documented in this encounter Visit Diagnoses Not on filedocumented in this encounter
--- OUTSIDE RECORDS SUMMARY | 2022-01-04 06:45 | XMS_ITS | Encounter Summary ---
:1945 Author Organization [facility] Address [address] [place] [address] Care Team Providers Name Role Phone Unavailable Primary Care Provider Unavailable Encounter Details Date Type Department Care Team Description 10/21/2020 Treatment [facility] O Ernie Gómez MD [address] [place] [address] [place], [place] [address] [phone] (Wo rk) Social History Tobacco Use Types Packs/Day Years Used Date Smoking Tobacco: Unknown Comments: Smoking History Info:Patient n ot screened Sex Assigned at Date Recorded Not on file documented as of this encounter Miscellaneous Notes Dialysis Note - Ernie Pompa MD - 10/21/2020 12:00 PM CDT Date: Oct 21, 2020 Patient Name: Shaun Ocampo : 1945 Chart #: [id number] Sex: M This patient was personally seen [...] Every 2 weeks During Dialysis 09/30/2020 09/29/2021 TEACHER COUNSELOR: Ernie Pompa MD LOCATION: [phone] SCHEDULE: -W- 2nd Shift EDW: kg. DIALYZER: [...] for ureteral ?tumor early next month in [place]. 06/10: Doing well overall, no new [...] Went to Urgent care -> ER in [place] yesterday,CT with R hydro but no obstructive [...] prescription. Vascular Access Assessment Type of access: [id number]/2019 Surgeon - Lary KUMARW Access working well [...] at goal. Intact PTH is above goal. Yard Loader Operator will adjust binders and vitamin D [...]
--- OUTSIDE RECORDS SUMMARY | 2022-01-04 06:45 | XMS_ITS | Encounter Summary ---
:1945 Author Organization [facility] Address [address] [place] [address] Care Team Providers Name Role Phone Unavailable Primary Care Provider Unavailable Encounter Details Date Type Department Care Team Description 10/07/2020 Orders Only [facility] O f Ernie Guzmán MD [address] [place] [address] [place], [place] [phone] (Wo rk) Social History Tobacco Use [...] 10/09/2020 Unless otherwise specified, test(s) performed at: [facility], [address] [place] [address] AMBULANCE PARAMEDIC: Alec Payan M.D. For any questions, please call customer service at FREQUENCY:OTHER Resulting Agency Comment Specimen source: Blood Ernie Pompa MD LAB BLOOD ORDERABLES Performing Organization Address City/State/ZIP Code Phon e Number APS SPECTRA [facility] documented in this encounter Visit Diagnoses Not on filedocumented in this encounter
--- OUTSIDE RECORDS SUMMARY | 2022-01-04 06:45 | XMS_ITS | Encounter Summary ---
:1945 Author Organization [facility] Address [address] [place] [address] Care Team Providers Name Role Phone Unavailable Primary Care Provider Unavailable Encounter Details Date Type Department Care Team Description 10/21/2020 Orders Only [facility] O f Ernie Guzmán MD [address] [place] [address] [place], [place] [phone] (Wo rk) Social History Tobacco Use [...] Provider LAB BLOOD ORDERABLES Performing Organization Address City/[facility]/ZIP Code Phon e Number KAMERON IMMUNO CHEMISTRY (10/21/2020) athologist Signature Hep B Surface Negative Negative APS SPECTRA Ag [facility] Specimen (Source) Anatomical Collection Method Collection Time Re ceived Time Location / / Volume Laterality 10/21/2020 10/22/2020 9:40 PM CDT Narrative APS SPECTRA [facility] - 10/23/2020 Unless otherwise specified, test(s) performed at: [facility], [address] [place], [place] [id number] PUMPER GAUGER: Alec Payan M.D. For any questions, please call customer service at FREQUENCY:MONTHLY Resulting Agency Comment Specimen source: Serum Ernie Pomap MD LAB BLOOD ORDERABLES Performing Organization Address [facility] Phon e Number APS SPECTRA [facility] (ABNORMAL) Spectrae Chemistry (10/21/2020) athologist [facility] PTH 785 (H) 16 - 80 APS SPECTRA pg/mL [facility] Specimen (Source) Anatomical Collection Method Collection Time Re ceived Time Location / / Volume Laterality 10/21/2020 10/22/2020 8:05 PM CDT Narrative APS SPECTRA [facility] - 10/23/2020 Unless otherwise specified, test(s) performed at: [facility], [address] [place] [address] PUMPER GAUGER: Alec Payan M.D. For any questions, please call customer service at FREQUENCY:MONTHLY Resulting Agency Comment Specimen source: Plasma Ernie Pompa MD LAB BLOOD ORDERABLES Performing Organization Address City/[facility] Phon e Number APS SPECTRA [facility] HD KINETICS (10/21/2020) athologist Signature % Urea 76 65 - 80 % APS SPECTRA Reduction [facility] Specimen (Source) Anatomical Collection Method Collection Time Re ceived Time Location / / Volume Laterality 10/21/2020 10/22/2020 9:40 PM CDT Narrative APS SPECTRA [facility] - 10/23/2020 Unless otherwise specified, test(s) performed at: [facility], [address] [place] [address] PUMPER GAUGER: Alec Payan M.D. For any questions, please call customer service at FREQUENCY:MONTHLY Resulting Agency Comment Specimen source: Serum Ernie Pompa MD LAB BLOOD ORDERABLES Performing Organization Address City/State/ZIP Code Phon e Number APS SPECTRA [facility] (ABNORMAL) Spectrae Chemistry (10/21/2020) [facility] gist Method Time Signature BUN 45 (H) [...] 10/23/2020 Unless otherwise specified, test(s) performed at: [facility], [address] [place] [address] PUMPER GAUGER: Alec Payan M.D. For any questions, please [...] 10/23/2020 Unless otherwise specified, test(s) performed at: [facility], [address] [place] [address] PUMPER GAUGER: Alec Payan M.D. For any questions, please [...] 10/22/2020 Unless otherwise specified, test(s) performed at: [facility], [address] [place] [address] PUMPER GAUGER: Alec Payan M.D. For any questions, please call customer service at FREQUENCY:MONTHLY Resulting Agency Comment Specimen source: Plasma Ernie Pompa MD LAB BLOOD ORDERABLES Performing Organization Address City/State/[facility] Code Phon e Number APS SPECTRA [facility] documented in this encounter Visit Diagnoses Not on filedocumented in this encounter
--- OUTSIDE RECORDS SUMMARY | 2022-01-04 06:45 | XMS_ITS | Encounter Summary ---
:1945 Author Organization [facility] Address [address] [place] [address] Care Team Providers Name Role Phone Unavailable Primary Care Provider Unavailable Encounter Details Date Type Department Care Team Description 07/29/2020 Orders Only [facility] O f Ernie Guzmán MD [address] [place] [address] [place], [place] [phone] (Wo rk) Social History Tobacco Use [...] 07/30/2020 Unless otherwise specified, test(s) performed at: [facility], [address] [place] [address] PORTRAIT CONSULTANT: Alec Payan M.D. For any questions, please call customer service at FREQUENCY:OTHER Resulting Agency Comment Specimen source: Blood Ernie Pompa MD LAB BLOOD ORDERABLES Performing Organization Address City/State/ZIP Code Phon e Number APS SPECTRA [facility] documented in this encounter Visit Diagnoses Not on filedocumented in this encounter
--- OUTSIDE RECORDS SUMMARY | 2022-01-04 06:45 | XMS_ITS | Encounter Summary ---
:1945 Author Organization [facility] Address [address] [place] [address] Care Team Providers Name Role Phone Unavailable Primary Care Provider Unavailable Encounter Details Date Type Department Care Team Description 08/19/2020 Orders [facility] O f Ernie Guzmán MD [address] [place] [address] [place], [place] [phone] (Wo rk) Social History Tobacco Use [...] 08/22/2020 Unless otherwise specified, test(s) performed at: [facility], [address] [place] [address] CEMENT BREAKER: Alec Payan M.D. For any questions, please call customer service at FREQUENCY:MONTHLY Resulting Agency Comment Specimen source: Plasma Ernie Pompa MD LAB BLOOD ORDERABLES Performing Organization Address City/[facility]/ZIP Code Phon e Number APS SPECTRA [facility] (ABNORMAL) Spectrae Chemistry (08/19/2020) [facility] Method Time Signature BUN 49 [...] 08/22/2020 Unless otherwise specified, test(s) performed at: [facility], [address] [place] [address] CEMENT BREAKER: Alec Payan M.D. For any questions, [...] 08/21/2020 Unless otherwise specified, test(s) performed at: [facility], [address] [place] [address] CEMENT BREAKER: Alec Payan M.D. For any questions, please call customer service at FREQUENCY:MONTHLY Resulting Agency Comment Specimen source: Plasma Ernie Pompa MD LAB BLOOD ORDERABLES Performing Organization Address City/[facility] Phon e Number APS SPECTRA [facility] IMMUNO [...] 08/21/2020 Unless otherwise specified, test(s) performed at: [facility], [address] [place] [address] CEMENT BREAKER: Alec Payan M.D. For any questions, please call customer service at FREQUENCY:MONTHLY Resulting Agency Comment Specimen source: Serum Ernie Pompa MD LAB BLOOD ORDERABLES Performing Organization Address [facility] Phon e Number APS SPECTRA [...] 08/21/2020 Unless otherwise specified, test(s) performed at: [facility], [address] [place] [address] CEMENT BREAKER: Alec Payan M.D. For any questions, please call customer service at FREQUENCY:MONTHLY Resulting Agency Comment Specimen source: Blood Ernie Pompa MD LAB BLOOD ORDERABLES Performing Organization Address City/State/ZIP Code Phon e Number APS SPECTRA [facility] documented in this encounter Visit Diagnoses Not on filedocumented in this encounter
--- OUTSIDE RECORDS SUMMARY | 2022-01-04 06:45 | XMS_ITS | Encounter Summary ---
:1945 Author Organization [facility] Address [address] [place] [address] Care Team Providers Name Role Phone Unavailable Primary Care Provider Unavailable Encounter Details Date Type Department Care Team Description 07/22/2020 [facility] O f Ernie Guzmán MD [address] [place] [address] [place], [place] [phone] (Wo rk) Social History Tobacco Use [...] [facility]/ZIP Code Phon e Number APS SPECTRA [facility] POST CHEMISTRY (07/22/2020) athologist Signature BUN Post 12 6 - 19 APS SPECTRA Dialysis mg/dL [facility] Specimen (Source) Anatomical Collection Method Collection Time Re ceived Time Location / / Volume Laterality 07/22/2020 07/23/2020 7:39 PM CDT Narrative APS SPECTRA [facility] - 07/24/2020 Unless otherwise specified, test(s) performed at: [facility], [address] [place] [address] RHEOSTAT ASSEMBLER: Alec Payan M.D. For any questions, please call customer service at FREQUENCY:MONTHLY Resulting Agency Comment Specimen source: Plasma Ernie Pompa MD LAB BLOOD ORDERABLES Performing Organization Address City/[facility] Phon e Number APS SPECTRA [facility] IMMUNO CHEMISTRY (07/22/2020) P athologist Signature Hep B Surface Negative Negative APS SPECTRA Ag [facility] Specimen (Source) Anatomical Collection Method Collection Time Re ceived Time Location / / Volume Laterality 07/22/2020 07/23/2020 4:57 PM CDT Narrative APS SPECTRA [facility] - 07/23/2020 Unless otherwise specified, test(s) performed at: [facility], [address] [place] [address] RHEOSTAT ASSEMBLER: Alec Payan M.D. For any questions, please call customer service at FREQUENCY:MONTHLY Resulting Agency Comment Specimen source: Serum Ernie Pompa MD LAB BLOOD ORDERABLES Performing Organization Address City/State/ZIP Code Phon e Number APS SPECTRA [facility] (ABNORMAL) Spectrae Chemistry (07/22/2020) [facility] Method Time Signature BUN 58 [...] 07/23/2020 Unless otherwise specified, test(s) performed at: [facility], [address] [place], [place] [id number] RHEOSTAT ASSEMBLER: Alec Payan M.D. For any questions, please call customer service at FREQUENCY:MONTHLY Resulting Agency Comment Specimen source: Serum Ernie Pompa MD LAB BLOOD ORDERABLES Performing Organization Address City/[facility] [...] ORDERABLES Performing Organization Address City/[facility] Code Phon e Number APS [...] 07/23/2020 Unless otherwise specified, test(s) performed at: [facility], [address] [place] [address] RHEOSTAT ASSEMBLER: Alec Payan M.D. For any questions, please call customer service at FREQUENCY:MONTHLY Resulting Agency Comment Specimen source: Blood Ernie Pompa MD LAB BLOOD ORDERABLES Performing Organization Address City/State/ZIP Code Phon e Number APS SPECTRA [facility] documented in this encounter Visit Diagnoses Not on filedocumented in this encounter
--- OUTSIDE RECORDS SUMMARY | 2022-01-04 06:45 | XMS_ITS | Encounter Summary ---
:1945 Author Organization [facility] Address [address] [place] [address] Care Team Providers Name Role Phone Unavailable Primary Care Provider Unavailable Encounter Details Date Type Department Care Team Description 08/26/2020 [facility] Only [facility] O f Ernie Guzmán MD [address] [place] [address] [place], [place] [phone] (Wo rk) Social History Tobacco Use [...] 08/27/2020 Unless otherwise specified, test(s) performed at: [facility], [address] [place] [address] FORGING PRESS OPERATOR: Alec Payan M.D. For any questions, please call customer service at FREQUENCY:OTHER Resulting Agency Comment Specimen source: Blood Ernie Pompa MD LAB BLOOD ORDERABLES Performing Organization Address City/State/ZIP Code Phon e Number APS SPECTRA [facility] documented in this encounter Visit Diagnoses Not on filedocumented in this encounter
--- OUTSIDE RECORDS SUMMARY | 2022-01-04 06:45 | XMS_ITS | Encounter Summary ---
:1945 Author Organization [facility] Address [address] [place] [address] Care Team Providers Name Role Phone Unavailable Primary Care Provider Unavailable Encounter Details Date Type Department Care Team Description 11/04/2020 [facility] O f Ernie Guzmán MD [phone] [place] [address] [place], [place] [phone] (Wo rk) Social History Tobacco Use [...] 11/05/2020 Unless otherwise specified, test(s) performed at: [facility], [address] [place] [address] MANAGER OF SELECTION AND ASSESSMENT: Alec Payan M.D. For any questions, please call customer service at FREQUENCY:OTHER Resulting Agency Comment Specimen source: Blood Ernie Pompa MD LAB BLOOD ORDERABLES Performing Organization Address City/State/ZIP Code Phon e Number APS SPECTRA [facility] documented in this encounter Visit Diagnoses Not on filedocumented in this encounter
--- OUTSIDE RECORDS SUMMARY | 2022-01-04 06:45 | XMS_ITS | Encounter Summary ---
:1945 Author Organization [facility] Address [address] [place] [address] Care Team Providers Name Role Phone Unavailable Primary Care Provider Unavailable Encounter Details Date Type Department Care Team Description 12/09/2020 Treatment [facility] f Ernie Guzmán MD [address] [place] [address] [place], [place] [address] [phone] (Wo rk) Social History Tobacco Use Types Packs/Day Years Used Date Smoking Tobacco: Unknown Comments: Smoking History Info:Patient n ot screened Sex Assigned at Date Recorded Not on file documented as of this encounter Miscellaneous Notes Dialysis Note - Ernie Pompa MD - 12/09/2020 10:05 AM CDT Date: Dec 09, 2020 Patient Name: Shaun Ocampo : 1945 Chart #: [id number] Sex: M This patient was personally seen [...] AM ) BP (sit): 134/63 AP(-) / TELEMETRY TECHNICIAN: 227/186 Pulse: 69 Chairside data as of [...] 09/18/2020 Access Flow 1432 > 2000 1138 CLINICAL DIETICIAN: Ernie Pompa MD LOCATION: [place] [phone] SCHEDULE: -- 2nd Shift ACCESS: EDW: kg. [...] Went to Urgent care -> ER in [place] yesterday,CT with R hydro but no obstructive [...] He had infiltration last week, dialyzed at [facility] on Sat and went well, access [...] (09/23/20) Vascular Access Assessment: Type of access: [id number]/[email or web address] Surgeon - Lary GARDNER Access working well [...]
--- OUTSIDE RECORDS SUMMARY | 2022-01-04 06:45 | XMS_ITS | Encounter Summary ---
:1945 Author Organization [facility] Address [address] [place] [address] Care Team Providers Name Role Phone Unavailable Primary Care Provider Unavailable Encounter Details Date Type Department Care Team Description 10/07/2020 Treatment [facility] f Ernie Guzmán MD [address] [place] [address] [place], [place] [address] [phone] (Wo rk) Social History Tobacco Use Types Packs/Day Years Used Date Smoking Tobacco: Unknown Comments: Smoking History Info:Patient n ot screened Sex Assigned at Date Recorded Not on file documented as of this encounter Miscellaneous Notes Dialysis Note - Ernie Pompa MD - 10/07/2020 10:59 AM CDT Date: Oct 07, 2020 Patient Name: Shaun Ocampo : 1945 Chart #: [id number] Sex: M This patient was personally seen [...] AM ) BP (sit): 125/63 AP(-) / IMPREGNATOR CARBON PRODUCTS: 232/178 Pulse: 70 Chairside data as of [...] Every 2 weeks During Dialysis 09/30/2020 09/29/2021 LEISURE STUDIES PROFESSOR: Ernie Pompa MD LOCATION: [facility] [phone] SCHEDULE: M-W- 2nd Shift ACCESS: EDW: kg. 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 06/10: Doing well overall, no new complaints, [...] Went to Urgent care -> ER in [place] yesterday,CT with R hydro but no obstructive [...] had infiltration last week, dialyzed at [facility] on Sat and went well, [...] (07/22/20) Vascular Access Assessment: Type of access: [id number]/[email or web address] Surgeon - Lary KUMARW Access working well [...]
--- OUTSIDE RECORDS SUMMARY | 2022-01-04 06:45 | XMS_ITS | Encounter Summary ---
:1945 Author Organization [facility] Address [address] [place] [address] Care Team Providers Name Role Phone Unavailable Primary Care Provider Unavailable Encounter Details Date Type Department Care Team Description 09/30/2020 Orders Only [facility] O f Ernie Guzmán MD [address] [place] [address] [place], [place] [phone] (Wo rk) Social History Tobacco Use [...] Provider LAB BLOOD ORDERABLES Performing Organization Address [facility] Code Phon e Number KAMERON [...] 10/02/2020 Unless otherwise specified, test(s) performed at: [facility], [address] [place], [place] [address] CLAIMS COUNSEL: Alec Payan M.D. For any questions, please call customer service at FREQUENCY:OTHER Resulting Agency Comment Specimen source: Blood Ernie Pompa MD LAB BLOOD ORDERABLES Performing Organization Address [facility] Phon e Number APS SPECTRA [facility] HD KINETICS (09/30/2020) P athologist Signature % Urea 77 65 - 80 % APS SPECTRA Reduction [facility] Specimen (Source) Anatomical Collection Method Collection Time Re ceived Time Location / / Volume Laterality 09/30/2020 10/01/2020 5:40 PM CDT Narrative APS SPECTRA [facility] - 10/01/2020 Unless otherwise specified, test(s) performed at: [facility], [address] [place] [address] CLAIMS COUNSEL: Alec Payan M.D. For any questions, please call customer service at FREQUENCY:OTHER Resulting Agency Comment Specimen source: Serum Ernie Pompa MD LAB BLOOD ORDERABLES Performing Organization Address [facility] Phon e Number APS SPECTRA [facility] (ABNORMAL) Spectrae Chemistry (09/30/2020) P athologist Signature BUN 44 (H) 6 - 19 APS SPECTRA mg/dL [facility] Specimen (Source) Anatomical Collection Method Collection Time Re ceived Time Location / / Volume Laterality 09/30/2020 10/01/2020 5:39 PM CDT Narrative APS SPECTRA [facility] - 10/01/2020 Unless otherwise specified, test(s) performed at: [facility], [address] [place] [address] CLAIMS COUNSEL: Alec Payan M.D. For any questions, please call customer service at FREQUENCY:OTHER Resulting Agency Comment Specimen source: Serum Ernie Pompa MD LAB BLOOD ORDERABLES Performing Organization Address City/[facility]/ZIP [facility] Phon e Number APS SPECTRA [facility] POST CHEMISTRY (09/30/2020) P athologist Signature BUN Post 10 6 - 19 APS SPECTRA Dialysis mg/dL [facility] Specimen (Source) Anatomical Collection Method Collection Time Re ceived Time Location / / Volume Laterality 09/30/2020 10/01/2020 12:4 3 PM CDT Narrative APS SPECTRA [facility] - 10/01/2020 Unless otherwise specified, test(s) performed at: [facility], [address] [place] [address] CLAIMS COUNSEL: Alec Payan M.D. For any questions, please call customer service at FREQUENCY:OTHER Resulting Agency Comment Specimen source: Plasma Ernie Pompa MD LAB BLOOD ORDERABLES Performing Organization Address City/[facility]/ZIP [facility] Phon e Number APS SPECTRA [facility] documented in this encounter Visit Diagnoses Not on filedocumented in this encounter
--- OUTSIDE RECORDS SUMMARY | 2022-01-04 06:45 | XMS_ITS | Encounter Summary ---
:1945 Author Organization [facility] Address [address] [place] [address] Care Team Providers Name Role Phone Unavailable Primary Care Provider Unavailable Encounter Details Date Type Department Care Team Description 09/23/2020 Orders [facility] O f Ernie Guzmán MD [address] [place] [address] [place], [place] [phone] (Wo rk) Social History Tobacco Use [...] 09/24/2020 Unless otherwise specified, test(s) performed at: [facility], [address] [place] [address] PROCESS STEWARD: Alec Payan M.D. For any questions, please call customer service at FREQUENCY:MONTHLY Resulting Agency Comment Specimen source: Plasma Ernie Pompa MD LAB BLOOD ORDERABLES Performing Organization Address City/[facility]/ZIP Code Phon e Number APS SPECTRA [...] 09/24/2020 Unless otherwise specified, test(s) performed at: [facility], [address] [place] [address] PROCESS STEWARD: Alec Payan M.D. For any questions, please call customer service at FREQUENCY:MONTHLY Resulting Agency Comment Specimen source: Blood Ernie Pompa MD LAB BLOOD ORDERABLES Performing Organization Address City/[facility] Phon e [...] TEST ORDERABL ES Performing Organization Address City/[facility]/ZIP Code Phon e Number APS SPECTRA [...] 09/24/2020 Unless otherwise specified, test(s) performed at: [facility], [address] [place] [address] PROCESS STEWARD: Alec Payan M.D. For any questions, please call customer service at FREQUENCY:MONTHLY Resulting Agency Comment Specimen source: Serum Ernie Pompa MD LAB BLOOD ORDERABLES Performing Organization Address City/State/ZIP Code Phon e Number APS SPECTRA [facility] documented in this encounter Visit Diagnoses Not on filedocumented in this encounter
--- OUTSIDE RECORDS SUMMARY | 2022-01-04 06:45 | XMS_ITS | Encounter Summary ---
:1945 Author Organization [facility] Address [address] [place] [address] Care Team Providers Name Role Phone Unavailable Primary Care Provider Unavailable Encounter Details Date Type Department Care Team Description 11/25/2020 Orders Only [facility] O f Ernie Guzmná MD [address] [place] [address] [place], [place] [phone] (Wo rk) Social History Tobacco Use [...] 11/26/2020 Unless otherwise specified, test(s) performed at: [facility], [address] [place] [address] HOUSE REGISTRY RN: Alec Payan M.D. For any questions, please call customer service at FREQUENCY:OTHER Resulting Agency Comment Specimen source: Blood Ernie Pompa MD LAB BLOOD ORDERABLES Performing Organization Address City/State/ZIP Code Phon e Number APS SPECTRA [facility] documented in this encounter Visit Diagnoses Not on filedocumented in this encounter
--- OUTSIDE RECORDS SUMMARY | 2022-01-04 06:45 | XMS_ITS | Encounter Summary ---
:1945 Author Organization [facility] Address [address] [place] [address] Care Team Providers Name Role Phone Unavailable Primary Care Provider Unavailable Encounter Details Date Type Department Care Team Description 10/14/2020 Orders [facility] O f Ernie Guzmán MD [address] [place] [address] [place], [place] [phone] (Wo rk) Social History Tobacco Use [...] 10/15/2020 Unless otherwise specified, test(s) performed at: [facility], [address] [place] [address] LEAD DATA ENTRY OPERATOR: Alec Payan M.D. For any questions, please call customer service at FREQUENCY:OTHER Resulting Agency Comment Specimen source: Blood Ernie Pompa MD LAB BLOOD ORDERABLES Performing Organization Address City/State/ZIP Code Phon e Number APS SPECTRA [facility] documented in this encounter Visit Diagnoses Not on filedocumented in this encounter
--- OUTSIDE RECORDS SUMMARY | 2022-01-04 06:45 | XMS_ITS | Encounter Summary ---
:1945 Author Organization [facility] Address [address] [place] [address] Care Team Providers Name Role Phone Unavailable Primary Care Provider Unavailable Encounter Details Date Type Department Care Team Description 09/23/2020 Treatment [facility] O f Ernie Guzmán MD [address] [place] [address] [place], [place] [address] [phone] (Wo rk) Social History Tobacco Use Types Packs/Day Years Used Date Smoking Tobacco: Unknown Comments: Smoking History Info:Patient n ot screened Sex Assigned at Date Recorded Not on file documented as of this encounter Miscellaneous Notes Dialysis Note - Ernie Pompa MD - 09/23/2020 10:44 AM CDT Date: Sep 23, 2020 Patient Name: Shaun Ocampo : 1945 Chart #: [id number] Sex: M This patient was personally seen [...] AM ) BP (sit): 103/52 AP(-) / STEWARD RACETRACK: 235/188 Pulse: 72 Chairside data as of [...] Every 2 weeks During Dialysis 09/16/2020 09/15/2021 CLASS A TRUCK DRIVER: Ernie Pompa MD LOCATION: [phone] SCHEDULE: Aravind-- 2nd Shift EDW: kg. 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 06/10: Doing well overall, no new complaints, [...] Went to Urgent care -> ER in [place] yesterday,CT with R hydro but no obstructive [...] prescription. Vascular Access Assessment Type of access: [id number]/2019 Surgeon - Lary GARDNER Access working well [...] at goal. Intact PTH is above goal. Fret Saw Operator will adjust binders and vitamin D [...]
--- OUTSIDE RECORDS SUMMARY | 2022-01-04 06:45 | XMS_ITS | Encounter Summary ---
:1945 Author Organization [facility] Address [address] [place] [address] Care Team Providers Name Role Phone Unavailable Primary Care Provider Unavailable Encounter Details Date Type Department Care Team Description 11/11/2020 Treatment [facility] O f Ernie Guzmán MD [address] [place] [address] [place], [place] [address] [phone] (Wo rk) Social History Tobacco Use Types Packs/Day Years Used Date Smoking Tobacco: Unknown Comments: Smoking History Info:Patient n ot screened Sex Assigned at Date Recorded Not on file documented as of this encounter Miscellaneous Notes Dialysis Note - Ernie Pompa MD - 11/11/2020 9:40 AM CDT Date: Nov 11, 2020 Patient Name: Shaun Ocampo : 1945 Chart #: [id number] Sex: M This patient was personally seen [...] AM ) BP (sit): 128/53 AP(-) / IC DESIGNER GATE ARRAYS: 223/184 Pulse: 75 Chairside data as of [...] 08/21/2020 Access Flow > 2000 1138 1772 CMO & PRESIDENT: Ernie Pompa MD LOCATION: [place] [phone] SCHEDULE: -W- 2nd Shift ACCESS: EDW: kg. [...] for ureteral ?tumor early next month in [place]. 06/10: Doing well overall, no new complaints, [...] Went to Urgent care -> ER in [place] yesterday,CT with R hydro but no obstructive [...] (08/19/20) Vascular Access Assessment: Type of access: [id number]/[email or web address] Surgeon - Lary GARDNER Access working well [...]
--- OUTSIDE RECORDS SUMMARY | 2022-01-04 06:45 | XMS_ITS | Encounter Summary ---
:1945 Author Organization [facility] Address [address] [place] [address] Care Team Providers Name Role Phone Unavailable Primary Care Provider Unavailable Encounter Details Date Type Department Care Team Description 09/02/2020 Orders Only [facility] O f Ernie Guzmán MD [address] [place] [address] [place], [place] [phone] (Wo rk) Social History Tobacco Use [...] 09/03/2020 Unless otherwise specified, test(s) performed at: [facility], [address] [place] [address] TYPE PHOTOGRAPHY SUPERVISOR: Alec Payan M.D. For any questions, please call customer service at FREQUENCY:OTHER Resulting Agency Comment Specimen source: Blood Ernie Pompa MD LAB BLOOD ORDERABLES Performing Organization Address City/State/ZIP Code Phon e Number APS SPECTRA [facility] documented in this encounter Visit Diagnoses Not on filedocumented in this encounter
--- OUTSIDE RECORDS SUMMARY | 2022-01-04 06:45 | XMS_ITS | Encounter Summary ---
:1945 Author Organization [facility] Address [address] [place] [address] Care Team Providers Name Role Phone Unavailable Primary Care Provider Unavailable Encounter Details Date Type Department Care Team Description 08/19/2020 Treatment [facility] f Ernie Guzmán MD [address] [place] [address] [place], [place] [address] [phone] (Wo rk) Social History Tobacco Use Types Packs/Day Years Used Date Smoking Tobacco: Unknown Comments: Smoking History Info:Patient n ot screened Sex Assigned at Date Recorded Not on file documented as of this encounter Miscellaneous Notes Dialysis Note - Ernie Pompa MD - 08/19/2020 12:37 PM CDT Date: Aug 19, 2020 Patient Name: Shaun Ocampo : 1945 Chart #: [id number] Sex: M This patient was personally seen [...] PM ) BP (sit): 110/40 AP(-) / PROSTHETIC DENTIST: 250/194 Pulse: 67 Chairside data as of [...] Every 4 weeks During Dialysis 08/19/2020 08/18/2021 TALENT DIRECTOR: Ernie Pompa MD LOCATION: [phone] SCHEDULE: M-W- 2nd Shift EDW: kg. 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 06/10: Doing well overall, no new complaints, [...] Went to Urgent care -> ER in [place] yesterday,CT with R hydro but no obstructive [...] prescription. Vascular Access Assessment Type of access: [id number]/2019 Surgeon - Lary GARDNER Access working well [...] goal. Intact PTH is above goal. Supervisor Pressing Department will adjust binders and vitamin D [...]
--- OUTSIDE RECORDS SUMMARY | 2022-01-04 06:45 | XMS_ITS | Encounter Summary ---
:1945 Author Organization [facility] Address [address] [place] [address] Care Team Providers Name Role Phone Unavailable Primary Care Provider Unavailable Encounter Details Date Type Department Care Team Description 2020 Orders [facility] O f Ernie Guzmán MD [address] [place] [address] [place], [place] [phone] (Wo rk) Social History Tobacco Use [...] 08/06/2020 Unless otherwise specified, test(s) performed at: [facility], [address] [place] [address] CHEMICAL ANALYTICAL SAMPLER: Alec Payan M.D. For any questions, please call customer service at FREQUENCY:OTHER Resulting Agency Comment Specimen source: Blood Ernie Pompa MD LAB BLOOD ORDERABLES Performing Organization Address City/State/ZIP Code Phon e Number APS SPECTRA [facility] documented in this encounter Visit Diagnoses Not on filedocumented in this encounter
--- OUTSIDE RECORDS SUMMARY | 2022-01-04 06:45 | XMS_ITS | Encounter Summary ---
:1945 Author Organization [facility] Address [address] [place] [address] Care Team Providers Name Role Phone Unavailable Primary Care Provider Unavailable Encounter Details Date Type Department Care Team Description 12/09/2020 Orders [facility] O f Ernie Guzmán MD [address] [place] [address] [place], [place] [phone] (Wo rk) Social History Tobacco Use [...] 12/10/2020 Unless otherwise specified, test(s) performed at: [facility], [address] [place] [address] IT SECURITY ADMINISTRATOR: Alec Payan M.D. For any questions, please call customer service at FREQUENCY:OTHER Resulting Agency Comment Specimen source: Blood Ernie Pompa MD LAB BLOOD ORDERABLES Performing Organization Address City/State/ZIP Code Phon e Number APS SPECTRA [facility] documented in this encounter Visit Diagnoses Not on filedocumented in this encounter
--- OUTSIDE RECORDS SUMMARY | 2022-01-04 06:45 | XMS_ITS | Encounter Summary ---
:1945 Author Organization [facility] Address [address] [place] [address] Care Team Providers Name Role Phone Unavailable Primary Care Provider Unavailable Encounter Details Date Type Department Care Team Description 12/02/2020 [facility] O f Ernie Guzmán MD [address] [place] [address] [place], [place] [phone] (Wo rk) Social History Tobacco Use [...] 12/03/2020 Unless otherwise specified, test(s) performed at: [facility], [address] [place] [address] ALUMNI RELATIONS OFFICER: Alec Payan M.D. For any questions, please call customer service at FREQUENCY:OTHER Resulting Agency Comment Specimen source: Blood Ernie Pompa MD LAB BLOOD ORDERABLES Performing Organization Address City/State/ZIP Code Phon e Number [facility] documented in this encounter Visit Diagnoses Not on filedocumented in this encounter
--- OUTSIDE RECORDS SUMMARY | 2022-01-04 06:45 | XMS_ITS | Encounter Summary ---
:1945 Author Organization [facility] Address [address] [place] [address] Care Team Providers Name Role Phone Unavailable Primary Care Provider Unavailable Encounter Details Date Type Department Care Team Description 11/18/2020 [facility] O f Ernie Guzmán MD [address] [place] [address] [place], [place] [phone] (Wo rk) Social History Tobacco Use [...] City/[facility]/ZIP Code Phon e Number [facility]PS SPECTRA [facility] POST CHEMISTRY (11/18/2020) athologist Signature BUN Post 11 6 - 19 APS SPECTRA Dialysis mg/dL [facility] Specimen (Source) Anatomical Collection Method Collection Time Re ceived Time Location / / Volume Laterality 11/18/2020 11/19/2020 6:04 PM CDT Narrative [facility] - 11/19/2020 Unless otherwise specified, test(s) performed at: [facility], [address] [place] [address] FASHION MODEL: Alec Payan M.D. For any questions, please call customer service at FREQUENCY:MONTHLY Resulting Agency Comment Specimen source: Plasma Ernie Pompa MD LAB BLOOD ORDERABLES Performing Organization Address City/[facility] Code Phon e Number [facility] IMMUNO CHEMISTRY (11/18/2020) P athologist Signature Hep B Surface Negative Negative [facility]PS [facility]PECT[facility] Ag [facility] Specimen (Source) Anatomical Collection Method Collection Time Re ceived Time Location / / Volume Laterality 11/18/2020 11/19/2020 3:22 PM CDT Narrative [facility] - 11/19/2020 Unless otherwise specified, test(s) performed at: [facility], [address] [place] [address] FASHION MODEL: Alec Payan M.D. For any questions, please [...] 11/19/2020 Unless otherwise specified, test(s) performed at: [facility], [address] [place] [address] FASHION MODEL: Alec Payan M.D. For any questions, please call customer service at FREQUENCY:MONTHLY Resulting Agency Comment Specimen source: Blood Ernie Pompa MD LAB BLOOD ORDERABLES Performing Organization Address City/State/[facility] Code Phon e Number APS [facility]RA [facility] (ABNORMAL) Spectrae Chemistry (11/18/2020) P athologist Signature PTH 969 (H) 16 - 80 [facility] pg/mL [facility] Specimen (Source) Anatomical Collection Method Collection Time Re ceived Time Location / / Volume Laterality 11/18/2020 11/19/2020 5:01 PM CDT Narrative [facility] - 11/19/2020 Unless otherwise specified, test(s) performed at: [facility], [address] [place] [address] FASHION MODEL: Alec Payan M.D. For any questions, please call customer service at FREQUENCY:MONTHLY Resulting Agency Comment Specimen source: Plasma Ernie Pompa MD LAB BLOOD ORDERABLES Performing Organization Address City/State/ZIP Code Phon e Number [facility]PS [facility]PECTRA [facility] (ABNORMAL) Spectrae Chemistry (11/18/2020) [employer] gist Method Time Signature BUN 51 (H) [...] 11/19/2020 Unless otherwise specified, test(s) performed at: [facility], [address] [place] [address] FASHION MODEL: Alec Payan M.D. For any questions, please call customer service at FREQUENCY:MONTHLY Resulting Agency Comment Specimen source: Serum Ernie Pompa MD LAB BLOOD ORDERABLES Performing Organization Address City/State/ZIP Code Phon e Number [facility] documented in this encounter Visit Diagnoses Not on filedocumented in this encounter
--- OUTSIDE RECORDS SUMMARY | 2022-01-04 06:46 | XMS_ITS | Encounter Summary ---
:1945 Author Organization [facility] Address [address] [place] [address] Care Team Providers Name Role Phone Unavailable Primary Care Provider Unavailable Encounter Details Date Type Department Care Team Description 05/06/2020 [facility] O f Ernie Guzmán MD [address] [place] [address] [place], [place] [phone] (Wo rk) Social History Tobacco Use [...] / Volume Laterality 05/06/2020 05/07/2020 2:32 PM PASTORAL WORKER Narrative [facility] - 05/07/2020 Unless otherwise specified, test(s) performed at: [email or web address], [address] [place] [address] AUTOMATIC TELLER MACHINE SERVICER: Alec Payan M.D. For any questions, please call customer service at FREQUENCY:OTHER Resulting Agency Comment Specimen source: Blood Ernie Pompa MD LAB BLOOD ORDERABLES Performing Organization Address City/State/ZIP Code Phon e Number [facility]RA [facility] documented in this encounter Visit Diagnoses Not on filedocumented in this encounter
--- OUTSIDE RECORDS SUMMARY | 2022-01-04 06:46 | XMS_ITS | Encounter Summary ---
:1945 Author Organization [facility] Address [address] [place] [address] Care Team Providers Name Role Phone Unavailable Primary Care Provider Unavailable Encounter Details Date Type Department Care Team Description 07/08/2020 Treatment [facility] O Ernie Gómez MD [address] [place] [address] [place], [place] [phone] [phone] (Wo rk) Social History Tobacco Use Types Packs/Day Years Used Date Smoking Tobacco: Unknown Comments: Smoking History Info:Patient n ot screened Sex Assigned at Date Recorded Not on file documented as of this encounter Miscellaneous Notes Dialysis Note - Ernie Pompa MD - 07/08/2020 9:33 AM CDT Date: Jul 08, 2020 Patient Name: Shaun Ocampo : 1945 Chart #: [id number] Sex: M This patient was personally seen [...] Flow > 1999 > 1999 > 1999 DIET AIDE: Ernie Pompa MD LOCATION: [place] [phone] SCHEDULE: 2nd Shift ACCESS: EDW: kg. DIALYZER: [...] for ureteral ?tumor early next month in [place]. 06/10: Doing well overall, no new complaints, [...] Went to Urgent care -> ER in [place] yesterday,CT with R hydro but no obstructive [...] (04/22/20) Vascular Access Assessment: Type of access: [id number]/2019 Surgeon - Lary GARDNER Access working well [...]
--- OUTSIDE RECORDS SUMMARY | 2022-01-04 06:46 | XMS_ITS | Encounter Summary ---
:1945 Author Organization [facility] Address [address] [place] [address] Care Team Providers Name Role Phone Unavailable Primary Care Provider Unavailable Encounter Details Date Type Department Care Team Description 06/03/2020 Orders Only [facility] O f Ernie Guzmán MD [phone] [place] [address] [place], [place] [phone] (Wo rk) Social History Tobacco Use [...] 06/04/2020 Unless otherwise specified, test(s) performed at: [facility], [address] [place] [address] PROJECT DEVELOPER: Alec Payan M.D. For any questions, please call customer service at FREQUENCY:OTHER Resulting Agency Comment Specimen source: Blood Ernie Pompa MD LAB BLOOD ORDERABLES Performing Organization Address City/State/ZIP Code Phon e Number [facility] documented in this encounter Visit Diagnoses Not on filedocumented in this encounter
--- OUTSIDE RECORDS SUMMARY | 2022-01-04 06:46 | XMS_ITS | Encounter Summary ---
:1945 Author Organization [facility] Address [address] [place] [address] Care Team Providers Name Role Phone Unavailable Primary Care Provider Unavailable Encounter Details Date Type Department Care Team Description 03/09/2020 Orders [facility] O f Ernie Guzmán MD [address] [place] [address] [place], [place] [phone] (Wo rk) Social History Tobacco Use [...] athologist Signature Hepatitis B <10 mIU/mL APS [employer] Surface Ab [facility] Comment: Reference Range: <10 mIU/mL ? Non-Immune >=10 mIU/mL ?Immune The magnitude of the measured result abo ve 10 mIU/mL is not indicative of the total amount of antibody present. Custom Exception Specimen (Source) Anatomical Collection Method Collection Time Re ceived Time Location / / Volume Laterality 03/09/2020 03/10/2020 2:47 PM PEDIGREE TRACER Narrative [facility]PS [facility] - 03/10/2020 Unless otherwise specified, test(s) performed at: [facility], [address] [place] [address] ENVIRONMENTAL SERVICES LEAD: Alec Payan M.D. For any questions, please call customer service at FREQUENCY:OTHER Resulting Agency Comment Specimen source: Serum Ernie Pompa MD LAB BLOOD ORDERABLES Performing Organization Address City/[facility]/ZIP Code Phon e Number APS SPECTRA [facility] (ABNORMAL) HEMATOLOGY (03/09/2020) Analysis Performed At Patho logist Time Signature Hemoglobin 10.6 (L) 14.0 - APS SPECTRA 18.0 g/dL [facility] Hemoglobin x 3 31.8 (L) 42.0 - [facility]PS [facility]RA 54.0 % [facility] Specimen (Source) Anatomical Collection Method Collection Time Re ceived Time Location / / Volume Laterality 03/09/2020 03/10/2020 12:1 4 PM PEDIGREE TRACER Narrative [facility] - 03/10/2020 Unless otherwise specified, test(s) performed at: [facility], [address] [place] [address] ENVIRONMENTAL SERVICES LEAD: Alec Payan M.D. For any questions, please call customer service at FREQUENCY:OTHER Resulting Agency Comment Specimen source: Blood Ernie Pompa MD LAB BLOOD ORDERABLES Performing Organization Address City/State/ZIP Code Phon e Number [facility]RA [facility] documented in this encounter Visit Diagnoses Not on filedocumented in this encounter
--- OUTSIDE RECORDS SUMMARY | 2022-01-04 06:46 | XMS_ITS | Encounter Summary ---
:1945 Author Organization [facility] Address [address] [place] [address] Care Team Providers Name Role Phone Unavailable Primary Care Provider Unavailable Encounter Details Date Type Department Care Team Description 04/29/2020 Orders Only [facility] O f Ernie Guzmán MD [address] [place] [address] [place], [place] [phone] (Wo rk) Social History Tobacco Use [...] / Volume Laterality 04/29/2020 05/01/2020 2:20 PM PAIN MANAGEMENT NURSE PRACTITIONER Narrative [facility] - 05/01/2020 Unless otherwise specified, test(s) performed at: [facility], [address] [place] [address] CVIR TECH: Alec Payan M.D. For any questions, please call customer service at FREQUENCY:OTHER Resulting Agency Comment Specimen source: Blood Ernie Pompa MD LAB BLOOD ORDERABLES Performing Organization Address City/State/ZIP Code Phon e Number [facility]PS SPECTRA [facility] documented in this encounter Visit Diagnoses Not on filedocumented in this encounter
--- OUTSIDE RECORDS SUMMARY | 2022-01-04 06:46 | XMS_ITS | Encounter Summary ---
:1945 Author Organization [facility] Address [address] [place] [address] Care Team Providers Name Role Phone Unavailable Primary Care Provider Unavailable Encounter Details Date Type Department Care Team Description 05/06/2020 Treatment [facility] f Ernie Guzmán MD [address] [place] [address] [place], [place] [phone] [phone] (Wo rk) Social History Tobacco Use Types Packs/Day Years Used Date Smoking Tobacco: Unknown Comments: Smoking History Info:Patient n ot screened Sex Assigned at Date Recorded Not on file documented as of this encounter Miscellaneous Notes Dialysis Note - Ernie Pompa MD - 05/06/2020 11:40 AM CST Date: May 06, 2020 Patient Name: Shaun Ocampo : 1945 Chart #: [id number] Sex: M This patient was personally seen [...] AM ) BP (sit): 108/52 AP(-) / MUD TEMPERER: 261/214 Pulse: 89 Chairside data as of [...] Every 4 weeks During Dialysis 04/15/2020 04/14/2021 [employer] SUPERVISOR: Ernie Pompa MD LOCATION: [phone] SCHEDULE: 2nd Shift ACCESS: EDW: kg. DIALYZER: HD DURATION: NEEDLE SIZE: ANTICOAG: BATH: QB: ml/min QD: ml/min Subjective Tolerating dialysis well. Reports no trouble with access. 05/06: HD going well outside high fluid gains that continue. However, acute abd/groin pain on Monday and came off early. Had gross hematuria Monday. Went to Urgent care -> ER in [place] yesterday,CT with R hydro but no obstructive [...] (12/25/19) Vascular Access Assessment: Type of access: [id number]/2019 Surgeon - Lary GARDNER Access working well Impression and Plan No changes, stable dialysis He will monitor sx and ensure gross hematuria resolves and pain resolving over next 48hrs I will [facility] this afternoon, get him in for [...]
--- OUTSIDE RECORDS SUMMARY | 2022-01-04 06:46 | XMS_ITS | Encounter Summary ---
:1945 Author Organization [facility] Address [address] [place] [address] Care Team Providers Name Role Phone Unavailable Primary Care Provider Unavailable Encounter Details Date Type Department Care Team Description 04/08/2020 Treatment [facility] O f Ernie Guzmán MD [address] [place] [address] [place], [place] [phone] [phone] (Wo rk) Social History Tobacco Use Types Packs/Day Years Used Date Smoking Tobacco: Unknown Comments: Smoking History Info:Patient n ot screened Sex Assigned at Date Recorded Not on file documented as of this encounter Miscellaneous Notes Dialysis Note - Ernie Pompa MD - 04/08/2020 12:32 PM CST Date: Apr 08, 2020 Patient Name: Shaun Ocampo : 1945 Chart #: [id number] Sex: M This patient was personally seen [...] PM ) BP (sit): 101/53 AP(-) / SAXOPHONE ASSEMBLER: 255/193 Pulse: 70 Chairside data as of [...] Every 4 weeks During Dialysis 03/18/2020 03/17/2021 WELFARE CASE WORKER: Ernie Pompa MD LOCATION: [phone] SCHEDULE: M-W- 2nd Shift ACCESS: EDW: kg. [...] (09/18/19) Vascular Access Assessment: Type of access: [id number]/2019 Surgeon - Lary GARDNER Access working well [...]
--- OUTSIDE RECORDS SUMMARY | 2022-01-04 06:46 | XMS_ITS | Encounter Summary ---
:1945 Author Organization [facility] Address [address] [place] [address] Care Team Providers Name Role Phone Unavailable Primary Care Provider Unavailable Encounter Details Date Type Department Care Team Description 03/25/2020 Orders Only [facility] O f Ernie Guzmán MD [address] [place] [address] [place], [place] [phone] (Wo rk) Social History Tobacco Use [...] Volume Laterality 03/25/2020 03/27/2020 11:1 6 AM MANAGER PRIMARY CARE Narrative [facility]PS S[facility]RA [facility] - 03/30/2020 Unless otherwise specified, test(s) performed at: [facility], [address] [place] [address] OIL HEAT TECHNICIAN: Alec Payan M.D. For any questions, [...] and its performa nce characteristics determined by [facility]. It has not been cleared or approved by the FDA. The laboratory is regulated under CLIA a s qualified to perform high complexity testing. This test is used fo r clinical purposes. It should not be regarded as investigational or fo r research. Specimen (Source) Anatomical Collection Method Collection Time Re ceived Time Location / / Volume Laterality 03/25/2020 03/26/2020 6:29 PM MANAGER PRIMARY CARE Narrative [facility]PS S[facility]RA [facility] - 03/28/2020 Unless otherwise specified, test(s) performed at: [facility], [address] [place], [place] [id number] OIL HEAT TECHNICIAN: Alec Payan M.D. For any questions, please call customer service at FREQUENCY:MONTHLY Resulting Agency Comment Specimen source: Serum Ernie Pompa MD LAB BLOOD ORDERABLES Performing Organization Address City/[facility]/ZIP Code Phon e Number APS SPECTRA [facility] IMMUNO CHEMISTRY (03/25/2020) P athologist Signature Hep B Surface Negative Negative APS SPECTRA Ag [facility] Specimen (Source) Anatomical Collection Method Collection Time Re ceived Time Location / / Volume Laterality 03/25/2020 03/27/2020 11:1 6 AM MANAGER PRIMARY CARE Resulting Agency Comment Specimen source: Serum Ernie Leimario CAMPBELL LAB BLOOD ORDERABLES Performing Organization Address City/[facility]/ZIP Code Phon e Number APS SPECTRA [facility] HD KINETICS (03/25/2020) P athologist Signature % Urea 79 65 - 80 % APS SPECTRA Reduction [facility] Specimen (Source) Anatomical Collection Method Collection Time Re ceived Time Location / / Volume Laterality 03/25/2020 03/27/2020 11:1 7 AM MANAGER PRIMARY CARE Resulting Agency Comment Specimen source: Serum Ernie Leimario CAMPBELL LAB BLOOD ORDERABLES Performing Organization Address City/[facility]/ZIP Code Phon e Number APS SPECTRA [facility] POST CHEMISTRY (03/25/2020) P athologist Signature BUN Post 12 6 - 19 APS SPECTRA Dialysis mg/dL [facility] Specimen (Source) Anatomical Collection Method Collection Time Re ceived Time Location / / Volume Laterality 03/25/2020 03/27/2020 10:5 5 AM MANAGER PRIMARY CARE Narrative [facility]PS SPECTRA [facility] - 03/27/2020 Unless otherwise specified, test(s) performed at: [facility], [address] [place] [address] OIL HEAT TECHNICIAN: Alec Payan M.D. For any questions, please call customer service at FREQUENCY:MONTHLY Resulting Agency Comment Specimen source: Plasma Ernie Pompa MD LAB BLOOD ORDERABLES Performing Organization Address City/State/ZIP Code Phon e Number APS SPECTRA [facility] (ABNORMAL) Spectrae Chemistry (03/25/2020) [facility] Method Time Signature BUN [...] Volume Laterality 03/25/2020 03/27/2020 11:1 6 AM MANAGER PRIMARY CARE Narrative [facility]PS SPECTRA [facility] - 03/28/2020 Unless otherwise specified, test(s) performed at: [facility], [address] [place] [address] OIL HEAT TECHNICIAN: Alec Payan M.D. For any questions, please call customer service at FREQUENCY:MONTHLY Resulting Agency Comment Specimen source: Serum Ernie Pompa MD LAB BLOOD ORDERABLES Performing Organization Address City/[facility] Phon e Number APS SPECTRA [facility] (ABNORMAL) Spectrae Chemistry (03/25/2020) P athologist Signature PTH 828 (H) 16 - 80 APS [facility]PECTRA pg/mL [facility] Specimen (Source) Anatomical Collection Method Collection Time Re ceived Time Location / / Volume Laterality 03/25/2020 03/26/2020 5:05 PM MANAGER PRIMARY CARE Narrative [facility]PS SPECTRA [facility] - 03/27/2020 Unless otherwise specified, test(s) performed at: [facility], [address] [place] [address] OIL HEAT TECHNICIAN: Alec Payan M.D. For any questions, please call customer service at FREQUENCY:MONTHLY Resulting Agency Comment Specimen source: Plasma Ernie Pompa MD LAB BLOOD ORDERABLES Performing Organization Address City/[facility] Phon e Number APS SPECTRA [...] / Volume Laterality 03/25/2020 03/26/2020 5:05 PM MANAGER PRIMARY CARE Narrative [facility]PS SPECTRA [facility] - 03/26/2020 Unless otherwise specified, test(s) performed at: [facility], [address] [place] [address] OIL HEAT TECHNICIAN: Alec Payan M.D. For any questions, please call customer service at FREQUENCY:MONTHLY Resulting Agency Comment Specimen source: Blood Ernie Pompa MD LAB BLOOD ORDERABLES Performing Organization Address City/State/ZIP Code Phon e Number [facility]PS SPECTRA [facility] documented in this encounter Visit Diagnoses Not on filedocumented in this encounter
--- OUTSIDE RECORDS SUMMARY | 2022-01-04 06:46 | XMS_ITS | Encounter Summary ---
:1945 Author Organization [facility] Address [address] [place] [address] Care Team Providers Name Role Phone Unavailable Primary Care Provider Unavailable Encounter Details Date Type Department Care Team Description 07/01/2020 Treatment [facility] f Ernie Guzmán MD [address] [place] [address] [place], [place] [address] [phone] (Wo rk) Social History Tobacco Use Types Packs/Day Years Used Date Smoking Tobacco: Unknown Comments: Smoking History Info:Patient n ot screened Sex Assigned at Date Recorded Not on file documented as of this encounter Miscellaneous Notes Dialysis Note - Ernie Pompa MD - 07/01/2020 11:18 AM CDT Date: Jul 01, 2020 Patient Name: Shaun Ocampo : 1945 Chart #: [id number] Sex: M This patient was personally seen [...] AM ) BP (sit): 115/74 AP(-) / WASTEWATER TREATMENT PLANT SUPERVISOR: 251/198 Pulse: 66 Chairside data as of [...] Every 2 weeks During Dialysis 06/24/2020 06/23/2021 AUTO ELECTRICIAN: Ernie Pompa MD LOCATION: [phone] SCHEDULE: M-W-F 2nd Shift EDW: kg. DIALYZER: [...] Went to Urgent care -> ER in [place] yesterday,CT with R hydro but no obstructive [...] He had infiltration last week, dialyzed at [facility] on Sat and went [...] prescription. Vascular Access Assessment Type of access: [id number]/2019 Surgeon - Lary KUMARW Access working well [...] Intact PTH is above goal. Public Safety Telecommunicator will adjust binders and vitamin D per [...] on dialysis. Schedule UF run extra at [place] when available. Hold Hep day before and [...]
--- OUTSIDE RECORDS SUMMARY | 2022-01-04 06:46 | XMS_ITS | Encounter Summary ---
:1945 Author Organization [facility] Address [address] [place] [address] Care Team Providers Name Role Phone Unavailable Primary Care Provider Unavailable Encounter Details Date Type Department Care Team Description 04/15/2020 Orders Only [facility] O f Erine Guzmán MD [address] [place] [address] [place], [place] [phone] (Wo rk) Social History Tobacco Use [...] / Volume Laterality 04/15/2020 04/16/2020 9:36 AM CHEESEMAKER HELPER Narrative APS SPECTRA [facility] - 04/16/2020 Unless otherwise specified, test(s) performed at: [facility], [address] [place] [address] SHOPPING INVESTIGATOR: Alec Paayn M.D. For any questions, please call customer service at FREQUENCY:OTHER Resulting Agency Comment Specimen source: Blood Ernie Pompa MD LAB BLOOD ORDERABLES Performing Organization Address City/State/ZIP Code Phon e Number APS SPECTRA [facility] documented in this encounter Visit Diagnoses Not on filedocumented in this encounter
--- OUTSIDE RECORDS SUMMARY | 2022-01-04 06:46 | XMS_ITS | Encounter Summary ---
:1945 Author Organization [facility] Address [address] [place] [address] Care Team Providers Name Role Phone Unavailable Primary Care Provider Unavailable Encounter Details Date Type Department Care Team Description 03/16/2020 [facility] O f Ernie Guzmán MD [address] [place] [address] [place], [place] [phone] (Wo rk) Social History Tobacco Use [...] Laterality 03/16/2020 03/17/2020 12:0 2 PM RETAIL AND PROMOTIONS COORDINATOR Narrative [facility] - 03/17/2020 Unless otherwise specified, test(s) performed at: [facility], [address] [place] [address] FLAVOR TANK TENDER: Alec Payan M.D. For any questions, please call customer service at FREQUENCY:OTHER Resulting Agency Comment Specimen source: Blood Ernie Pompa MD LAB BLOOD ORDERABLES Performing Organization Address City/State/ZIP Code Phon e Number [facility] documented in this encounter Visit Diagnoses Not on filedocumented in this encounter
--- OUTSIDE RECORDS SUMMARY | 2022-01-04 06:46 | XMS_ITS | Encounter Summary ---
:1945 Author Organization [facility] Address [address] [place] [address] Care Team Providers Name Role Phone Unavailable Primary Care Provider Unavailable Encounter Details Date Type Department Care Team Description 02/19/2020 [facility] O f Ernie Guzmán MD [address] [place] [address] [place], [place] [phone] (Wo rk) Social History Tobacco Use [...] / Volume Laterality 02/19/2020 02/20/2020 6:44 PM OUTPATIENT FACILITY PHYSICAL THERAPIST Resulting Agency Comment Specimen source: Plasma Ernie Pompa MD LAB BLOOD ORDERABLES Performing Organization Address City/State/ZIP Code Phon e Number [facility] POST CHEMISTRY (02/19/2020) P athologist Signature BUN Post 13 6 - 19 [facility] Dialysis mg/dL [facility] Specimen (Source) Anatomical Collection Method Collection Time Re ceived Time Location / / Volume Laterality 02/19/2020 02/20/2020 6:39 PM OUTPATIENT FACILITY PHYSICAL THERAPIST Narrative [facility] - 02/21/2020 Unless otherwise specified, test(s) performed at: [facility], [address] [place] [address] ODD TICKET CLERK: Alec Payan M.D. For any questions, please call customer service at FREQUENCY:MONTHLY Resulting Agency Comment Specimen source: Plasma Ernie Pompa MD LAB BLOOD ORDERABLES Performing Organization Address City/[facility]/ZIP Code Phon e Number APS [...] Volume Laterality 02/19/2020 02/20/2020 10:1 5 AM OUTPATIENT FACILITY PHYSICAL THERAPIST Narrative [facility] - 02/20/2020 Unless otherwise specified, test(s) performed at: [facility], [address] [place], [place] [id number] ODD TICKET CLERK: Alec Payan M.D. For any questions, [...] Volume Laterality 02/19/2020 02/20/2020 10:4 6 AM OUTPATIENT FACILITY PHYSICAL THERAPIST Resulting Agency Comment Specimen source: Serum Ernie [...] Volume Laterality 02/19/2020 02/20/2020 10:4 6 AM OUTPATIENT FACILITY PHYSICAL THERAPIST Narrative [facility] - 02/20/2020 Unless otherwise specified, test(s) performed at: [facility], [address] [place] [address] ODD TICKET CLERK: Alec Payan M.D. For any questions, please call customer service at FREQUENCY:MONTHLY Resulting Agency Comment Specimen source: Serum Ernie Pompa MD LAB BLOOD ORDERABLES Performing Organization Address City/State/ZIP Code Phon e Number [facility] documented in this encounter Visit Diagnoses Not on filedocumented in this encounter
--- OUTSIDE RECORDS SUMMARY | 2022-01-04 06:46 | XMS_ITS | Encounter Summary ---
:1945 Author Organization [facility] Address [address] [place] [address] Care Team Providers Name Role Phone Unavailable Primary Care Provider Unavailable Encounter Details Date Type Department Care Team Description 06/17/2020 [facility] O f Ernie Guzmán MD [phone] [place] [address] [place], [place] [phone] (Wo rk) Social History Tobacco Use [...] 06/18/2020 Unless otherwise specified, test(s) performed at: [facility], [address] [place] [address] DIRECTOR ENERGY: Alec Payan M.D. For any questions, please call customer service at FREQUENCY:OTHER Resulting Agency Comment Specimen source: Blood Ernie Pompa MD LAB BLOOD ORDERABLES Performing Organization Address City/State/ZIP Code Phon e Number [facility] documented in this encounter Visit Diagnoses Not on filedocumented in this encounter
--- OUTSIDE RECORDS SUMMARY | 2022-01-04 06:46 | XMS_ITS | Encounter Summary ---
:1945 Author Organization [facility] Address [address] [place] [address] Care Team Providers Name Role Phone Unavailable Primary Care Provider Unavailable Encounter Details Date Type Department Care Team Description 06/24/2020 [facility] O f Ernie Guzmán MD [address] [place] [address] [place], [place] [phone] (Wo rk) Social History Tobacco Use [...] 06/26/2020 Unless otherwise specified, test(s) performed at: [facility], [address] [place] [address] GLASS CUT OFF SUPERVISOR: Alec Payan M.D. For any questions, please call customer service at FREQUENCY:MONTHLY Resulting Agency Comment Specimen source: Plasma Ernie Pompa MD LAB BLOOD ORDERABLES Performing Organization Address City/[facility]/ZIP [facility] Phon e Number [...] 06/25/2020 Unless otherwise specified, test(s) performed at: [facility], [address] [place], [place] [id number] GLASS CUT OFF SUPERVISOR: Alec Payan M.D. For any questions, please call customer service at FREQUENCY:MONTHLY Resulting Agency Comment Specimen source: Plasma Ernie Pompa MD LAB BLOOD ORDERABLES Performing Organization Address City/[facility] Phon e Number [facility] [...] 06/26/2020 Unless otherwise specified, test(s) performed at: [facility], [address] [place] [address] GLASS CUT OFF SUPERVISOR: Alec Payan M.D. For any questions, please call customer service at FREQUENCY:MONTHLY Resulting Agency Comment Specimen source: Blood Ernie Pompa MD LAB BLOOD ORDERABLES Performing Organization Address City/[facility] Phon e Number [facility] [...] [facility] (ABNORMAL) [facility]rae Chemistry (06/24/2020) [facility] Method Time Signature Ferritin 951 (H) 22 [...] 06/25/2020 Unless otherwise specified, test(s) performed at: [facility], [address] [place] [address] GLASS CUT OFF SUPERVISOR: Alec Payan M.D. For any questions, please call customer service at FREQUENCY:MONTHLY Resulting Agency Comment Specimen source: Serum Ernie Pompa MD LAB BLOOD ORDERABLES Performing Organization Address City/State/ZIP Code Phon e Number [facility] documented in this encounter Visit Diagnoses Not on filedocumented in this encounter
--- OUTSIDE RECORDS SUMMARY | 2022-01-04 06:46 | XMS_ITS | Encounter Summary ---
:1945 Author Organization [facility] Address [address] [place] [address] Care Team Providers Name Role Phone Unavailable Primary Care Provider Unavailable Encounter Details Date Type Department Care Team Description 02/12/2020 [facility] O f Ernie Guzmán MD [address] [place] [address] [place], [place] [phone] (Wo rk) Social History Tobacco Use [...] Volume Laterality 02/12/2020 02/14/2020 12:5 9 PM CABINET ABRASIVE SANDBLASTER Narrative [facility] - 02/14/2020 Unless otherwise specified, test(s) performed at: [facility], [address] [place] [address] REFERRAL CLERK: Alec Payan M.D. For any questions, please call customer service at FREQUENCY:OTHER Resulting Agency Comment Specimen source: Blood Ernie Pompa MD LAB BLOOD ORDERABLES Performing Organization Address City/State/ZIP Code Phon e Number [facility] documented in this encounter Visit Diagnoses Not on filedocumented in this encounter
--- OUTSIDE RECORDS SUMMARY | 2022-01-04 06:46 | XMS_ITS | Encounter Summary ---
:1945 Author Organization [facility] Address [address] [place] [address] Care Team Providers Name Role Phone Unavailable Primary Care Provider Unavailable Encounter Details Date Type Department Care Team Description 05/27/2020 Treatment [facility] O Ernie Gómez MD [address] [place] [address] [place], [place] [phone] (Wo rk) Social History Tobacco Use Types Packs/Day Years Used Date Smoking Tobacco: Unknown Comments: Smoking History Info:Patient n ot screened Sex Assigned at Date Recorded Not on file documented as of this encounter Miscellaneous Notes Dialysis Note - Ernie Pompa MD - 05/27/2020 12:29 PM CST Date: May 27, 2020 Patient Name: Shaun Ocampo : 1945 Chart #: [id number] Sex: M This patient was personally seen [...] AM ) BP (sit): 122/55 AP(-) / POURED CONCRETE WALL TECHNICIAN: 234/221 Pulse: 72 Chairside data as of [...] Every 4 weeks During Dialysis 04/15/2020 04/14/2021 HEATING AND VENTILATING DRAFTER: Ernie Pompa MD LOCATION: [phone] SCHEDULE: M-W-F 2nd Shift EDW: kg. DIALYZER: [...] Went to Urgent care -> ER in [place] yesterday,CT with R hydro but no obstructive [...] He had infiltration last week, dialyzed at [facility] on Sat and went well, access [...] prescription. Vascular Access Assessment Type of access: [id number] Surgeon - Lary GARDNER Access working well [...] above goal. Intact PTH is above goal. Clinical Quality Manager will adjust binders and vitamin D [...]
--- OUTSIDE RECORDS SUMMARY | 2022-01-04 06:46 | XMS_ITS | Encounter Summary ---
:1945 Author Organization [facility] Address [address] [place] [address] Care Team Providers Name Role Phone Unavailable Primary Care Provider Unavailable Encounter Details Date Type Department Care Team Description 05/27/2020 [facility] O f Ernie Guzmán MD [address] [place] [address] [place], [place] [phone] (Wo rk) Social History Tobacco Use [...] / Volume Laterality 05/27/2020 05/28/2020 6:29 PM MOLD SANDER Narrative [facility] - 05/28/2020 Unless otherwise specified, test(s) performed at: [facility], [address] [place] [address] BOARD MIXER TENDER: Alec Payan M.D. For any questions, please call customer service at FREQUENCY:OTHER Resulting Agency Comment Specimen source: Blood Ernie Pompa MD LAB BLOOD ORDERABLES Performing Organization Address City/State/ZIP Code Phon e Number [facility] documented in this encounter Visit Diagnoses Not on filedocumented in this encounter
--- OUTSIDE RECORDS SUMMARY | 2022-01-04 06:46 | XMS_ITS | Encounter Summary ---
:1945 Author Organization [facility] Address [address] [place] [address] Care Team Providers Name Role Phone Unavailable Primary Care Provider Unavailable Encounter Details Date Type Department Care Team Description 06/10/2020 [facility] O f Ernie Guzmán MD [address] [place] [address] [place], [place] [phone] (Wo rk) Social History Tobacco Use [...] 06/11/2020 Unless otherwise specified, test(s) performed at: [facility], [address] [place] [address] SOIL SCIENCE PROFESSOR: Alec Payan M.D. For any questions, please call customer service at FREQUENCY:OTHER Resulting Agency Comment Specimen source: Blood Ernie Pompa MD LAB BLOOD ORDERABLES Performing Organization Address City/State/ZIP Code Phon e Number [facility] documented in this encounter Visit Diagnoses Not on filedocumented in this encounter
--- OUTSIDE RECORDS SUMMARY | 2022-01-04 06:46 | XMS_ITS | Encounter Summary ---
:1945 Author Organization [facility] Address [address] [place] [address] [address] [place] [address] Care Team Providers Name Role Phone Unavailable Primary Care Provider Unavailable Encounter Details Date Type Department Care Team Description 03/04/2020 [facility] O f Ernie Guzmán MD [address] [place] [address] [place], [place] [phone] (Wo rk) Social History Tobacco Use [...] / Volume Laterality 03/04/2020 03/06/2020 1:44 PM LABORATORY SUPERVISOR Narrative [facility] - 03/06/2020 Unless otherwise specified, test(s) performed at: [facility], [address] [place] [address] COMMERCIAL LITIGATION ASSOCIATE: Alec Payan M.D. For any questions, please call customer service at FREQUENCY:OTHER Resulting Agency Comment Specimen source: Blood Ernie Pompa MD LAB BLOOD ORDERABLES Performing Organization Address City/State/ZIP Code Phon e Number [facility] documented in this encounter Visit Diagnoses Not on filedocumented in this encounter
--- OUTSIDE RECORDS SUMMARY | 2022-01-04 06:46 | XMS_ITS | Encounter Summary ---
:1945 Author Organization [facility] Address [address] [place] [address] Care Team Providers Name Role Phone Unavailable Primary Care Provider Unavailable Encounter Details Date Type Department Care Team Description 02/19/2020 Treatment [facility] O Ernie Gómez MD [address] [place] [address] [place], [place] [phone] [phone] (Wo rk) Social History Tobacco Use Types [...] AM ) BP (sit): 104/47 AP(-) / A AND P TECHNICIAN: 260/215 Pulse: 84 Chairside data as of [...] Every 4 weeks During Dialysis 02/12/2020 02/10/2021 EARLY CHILDHOOD EDUCATOR AIDE: Ernie Pompa MD LOCATION: [facility] [phone] SCHEDULE: M-W-F 2nd Shift EDW: kg. DIALYZER: [...] prescription. Vascular Access Assessment Type of access: [id number]/2019 Surgeon Annita KUMARW Access working well Anemia [...] above goal. Intact PTH is at goal. Master Coast[employer] will adjust binders and vitamin D per [...]
--- OUTSIDE RECORDS SUMMARY | 2022-01-04 06:46 | XMS_ITS | Encounter Summary ---
:1945 Author Organization [facility] Address [address] [place] [address] Care Team Providers Name Role Phone Unavailable Primary Care Provider Unavailable Encounter Details Date Type Department Care Team Description 07/01/2020 [facility] O f Ernie Guzmán MD [address] [place] [address] [place], [place] [phone] (Wo rk) Social History Tobacco Use [...] 07/03/2020 Unless otherwise specified, test(s) performed at: [facility], [address] [place] [address] WRITER EDITOR: Alec Payan M.D. For any questions, please call customer service at FREQUENCY:OTHER Resulting Agency Comment Specimen source: Blood Ernie Pompa MD LAB BLOOD ORDERABLES Performing Organization Address City/State/ZIP Code Phon e Number [facility] documented in this encounter Visit Diagnoses Not on filedocumented in this encounter
--- OUTSIDE RECORDS SUMMARY | 2022-01-04 06:46 | XMS_ITS | Encounter Summary ---
:1945 Author Organization [facility] Address [address] [place] [address] Care Team Providers Name Role Phone Unavailable Primary Care Provider Unavailable Encounter Details Date Type Department Care Team Description 03/04/2020 Treatment [facility] O Ernie Gómez MD [address] [place] [address] [place], [place] [phone] (Wo rk) Social History Tobacco Use Types Packs/Day Years Used Date Smoking Tobacco: Unknown Comments: Smoking History Info:Patient n ot screened Sex Assigned at Date Recorded Not on file documented as of this encounter Miscellaneous Notes Dialysis Note - Ernie Pompa MD - 03/04/2020 9:33 AM CST Date: Mar 04, 2020 Patient Name: Shaun Ocampo : 1945 Chart #: [id number] Sex: M This patient was personally seen [...] AM ) BP (sit): 95/48 AP(-) / LOCOMOTIVE CRANE ENGINEER: 248/204 Pulse: 71 Chairside data as of [...] Every 4 weeks During Dialysis 02/12/2020 02/10/2021 INTEGRATION DIRECTOR: Ernie Pompa MD LOCATION: [facility] [phone] SCHEDULE: M-W- 2nd Shift ACCESS: EDW: kg. [...] (07/24/19) Vascular Access Assessment: Type of access: [id number] Surgeon - Lary GARDNER Access working well [...]
--- OUTSIDE RECORDS SUMMARY | 2022-01-04 06:46 | XMS_ITS | Encounter Summary ---
:1945 Author Organization [facility] Address [address] [place] [address] Care Team Providers Name Role Phone Unavailable Primary Care Provider Unavailable Encounter Details Date Type Department Care Team Description 07/15/2020 Orders [facility] O f Ernie Guzmán MD [address] [place] [address] [place], [place] [phone] (Wo rk) Social History Tobacco Use [...] 07/16/2020 Unless otherwise specified, test(s) performed at: [facility], [address] [place] [address] WINDOW SHADE RING COVERER: Alec Payan M.D. For any questions, please call customer service at FREQUENCY:OTHER Resulting Agency Comment Specimen source: Blood Ernie Pompa MD LAB BLOOD ORDERABLES Performing Organization Address City/State/ZIP Code Phon e Number [facility] documented in this encounter Visit Diagnoses Not on filedocumented in this encounter
--- OUTSIDE RECORDS SUMMARY | 2022-01-04 06:46 | XMS_ITS | Encounter Summary ---
:1945 Author Organization [facility] Address [address] [place] [address] Care Team Providers Name Role Phone Unavailable Primary Care Provider Unavailable Encounter Details Date Type Department Care Team Description 04/08/2020 Orders [facility] O f Ernie Guzmán MD [address] [place] [address] [place], [place] [phone] (Wo rk) Social History Tobacco Use [...] / Volume Laterality 04/08/2020 04/09/2020 2:20 PM CARDIOLOGY CONSULTANTS Narrative [facility] - 04/09/2020 Unless otherwise specified, test(s) performed at: [facility], [address] [place] [address] AUTO CLUTCH SPECIALIST: Alec Payan M.D. For any questions, please call customer service at FREQUENCY:OTHER Resulting Agency Comment Specimen source: Blood Ernie Pompa MD LAB BLOOD ORDERABLES Performing Organization Address City/State/ZIP Code Phon e Number [facility] documented in this encounter Visit Diagnoses Not on filedocumented in this encounter
--- OUTSIDE RECORDS SUMMARY | 2022-01-04 06:46 | XMS_ITS | Encounter Summary ---
:1945 Author Organization [facility] Address [address] [place] [address] Care Team Providers Name Role Phone Unavailable Primary Care Provider Unavailable Encounter Details Date Type Department Care Team Description 04/01/2020 [facility] O f Ernie Guzmán MD [address] [place] [address] [place], [place] [phone] (Wo rk) Social History Tobacco Use [...] / Volume Laterality 04/01/2020 04/02/2020 2:28 PM ARCHITECTURE INTERNSHIP Narrative [facility] - 04/02/2020 Unless otherwise specified, test(s) performed at: [facility], [address] [place] [address] HEAVY FORGER: Alec Payan M.D. For any questions, please call customer service at FREQUENCY:OTHER Resulting Agency Comment Specimen source: Blood Ernie Pompa MD LAB BLOOD ORDERABLES Performing Organization Address City/State/ZIP Code Phon e Number [facility] documented in this encounter Visit Diagnoses Not on filedocumented in this encounter
--- OUTSIDE RECORDS SUMMARY | 2022-01-04 06:46 | XMS_ITS | Encounter Summary ---
:1945 Author Organization [facility] Address [address] [place] [address] [address] [place] [address] Care Team Providers Name Role Phone Unavailable Primary Care Provider Unavailable Encounter Details Date Type Department Care Team Description 02/26/2020 Orders [facility] O f Ernie Guzmán MD [address] [place] [address] [place], [place] [phone] (Wo rk) Social History Tobacco Use [...] / Volume Laterality 02/26/2020 02/27/2020 2:55 PM PAIL BAILER Narrative [facility] - 02/27/2020 Unless otherwise specified, test(s) performed at: [facility], [address] [place] [address] WELDER FIRST CLASS: Alec Payan M.D. For any questions, please call customer service at FREQUENCY:OTHER Resulting Agency Comment Specimen source: Blood Ernie Pompa MD LAB BLOOD ORDERABLES Performing Organization Address City/State/ZIP Code Phon e Number [facility] documented in this encounter Visit Diagnoses Not on filedocumented in this encounter
--- OUTSIDE RECORDS SUMMARY | 2022-01-04 06:46 | XMS_ITS | Encounter Summary ---
:1945 Author Organization [facility] Address [address] [place] [address] Care Team Providers Name Role Phone Unavailable Primary Care Provider Unavailable Encounter Details Date Type Department Care Team Description 04/22/2020 Orders [facility] O f Ernie Guzmán MD [address] [place] [address] [place], [place] [phone] (Wo rk) Social History Tobacco Use [...] / Volume Laterality 04/22/2020 04/23/2020 7:44 PM COMIC BOOK DESIGNER Narrative [facility]PS S[facility]RA [facility] - 04/25/2020 Unless otherwise specified, test(s) performed at: [facility], [address] [place] [address] PIT BOSS: Alec Payan M.D. For any questions, please [...] / Volume Laterality 04/22/2020 04/23/2020 3:15 PM COMIC BOOK DESIGNER Narrative [facility] - 04/24/2020 Unless otherwise specified, test(s) performed at: [facility], [address] [place] [address] PIT BOSS: Alec Payan M.D. For any questions, please call customer service at FREQUENCY:MONTHLY Resulting Agency Comment Specimen source: Blood Ernie Pompa MD LAB BLOOD ORDERABLES Performing Organization Address City/[facility] Phon e Number [facility] HD KINETICS (04/22/2020) P athologist Signature % Urea 79 65 - 80 % [facility]PS [facility]PECTRA Reduction [facility] Specimen (Source) Anatomical Collection Method Collection Time Re ceived Time Location / / Volume Laterality 04/22/2020 04/23/2020 7:45 PM COMIC BOOK DESIGNER Narrative [facility] - 04/24/2020 Unless otherwise specified, test(s) performed at: [facility], [address] [place] [address] PIT BOSS: Alec Payan M.D. For any questions, please call customer service at FREQUENCY:MONTHLY Resulting Agency Comment Specimen source: Serum Ernie Pompa MD LAB BLOOD ORDERABLES Performing Organization Address City/[facility] Code Phon e [...] / Volume Laterality 04/22/2020 04/23/2020 7:44 PM COMIC BOOK DESIGNER Narrative [facility] - 04/24/2020 Unless otherwise specified, test(s) performed at: [facility], [address] [place] [address] PIT BOSS: Alec Payan M.D. For any questions, please [...] / Volume Laterality 04/22/2020 04/23/2020 3:15 PM COMIC BOOK DESIGNER Narrative [facility] - 04/24/2020 Unless otherwise specified, test(s) performed at: [facility], [address] [place] [address] PIT BOSS: Alec Payan M.D. For any questions, please [...] / Volume Laterality 04/22/2020 04/23/2020 2:14 PM COMIC BOOK DESIGNER Narrative [facility] - 04/23/2020 Unless otherwise specified, test(s) performed at: [facility], [address] [place] [address] PIT BOSS: Alec Payan M.D. For any questions, please call customer service at FREQUENCY:MONTHLY Resulting Agency Comment Specimen source: Plasma Ernie Pompa MD LAB BLOOD ORDERABLES Performing Organization Address City/State/ZIP Code Phon e Number [facility] documented in this encounter Visit Diagnoses Not on filedocumented in this encounter
--- OUTSIDE RECORDS SUMMARY | 2022-01-04 06:46 | XMS_ITS | Encounter Summary ---
:1945 Author Organization [facility] Address [address] [place] [address] Care Team Providers Name Role Phone Unavailable Primary Care Provider Unavailable Encounter Details Date Type Department Care Team Description 07/22/2020 Treatment [facility] f Ernie Guzmán MD [address] [place] [address] [place], [place] [phone] [phone] (Wo rk) Social History Tobacco Use Types Packs/Day Years Used Date Smoking Tobacco: Unknown Comments: Smoking History Info:Patient n ot screened Sex Assigned at Date Recorded Not on file documented as of this encounter Miscellaneous Notes Dialysis Note - Ernie Pompa MD - 07/22/2020 10:25 AM CDT Date: July 22, 2020 Patient Name: Shaun Ocampo : 1945 Chart #: [id number] Sex: M This patient was personally seen [...] AM ) BP (sit): 139/55 AP(-) / POURER BULL LADLE: 262/224 Pulse: 69 Chairside data as of [...] Every 4 weeks During Dialysis 07/08/2020 07/07/2021 CATH LAB TECHNOLOGIST: Ernie Pompa MD LOCATION: [phone] SCHEDULE: M-W-F 2nd Shift EDW: kg. 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 06/10: Doing well overall, no new complaints, [...] Went to Urgent care -> ER in [place] yesterday,CT with R hydro but no obstructive [...] He had infiltration last week, dialyzed at [facility] on Sat and went well, [...] prescription. Vascular Access Assessment Type of access: [id number]/2019 Surgeon - Lary KUMARW Access working well [...] at goal. Intact PTH is above goal. Forging Press Setter Up will adjust binders and vitamin D per [...]
--- OUTSIDE RECORDS SUMMARY | 2022-01-04 06:46 | XMS_ITS | Encounter Summary ---
:1945 Author Organization [facility] Address [address] [place] [address] Care Team Providers Name Role Phone Unavailable Primary Care Provider Unavailable Encounter Details Date Type Department Care Team Description 07/08/2020 Orders Only [facility] O f Ernie Guzmán MD [address] [place] [address] [place], [place] [phone] (Wo rk) Social History Tobacco Use [...] 07/09/2020 Unless otherwise specified, test(s) performed at: [facility], [address] [place] [address] CONTROL SYSTEMS DRAFTING OFFICER: Alec Payan M.D. For any questions, please call customer service at FREQUENCY:OTHER Resulting Agency Comment Specimen source: Blood Ernie Pompa MD LAB BLOOD ORDERABLES Performing Organization Address City/State/ZIP Code Phon e Number [facility]PS SPECTRA [facility] documented in this encounter Visit Diagnoses Not on filedocumented in this encounter
--- OUTSIDE RECORDS SUMMARY | 2022-01-04 06:46 | XMS_ITS | Encounter Summary ---
:1945 Author Organization [facility] Address [address] [place] [address] Care Team Providers Name Role Phone Unavailable Primary Care Provider Unavailable Encounter Details Date Type Department Care Team Description 04/22/2020 Treatment [facility] f Ernie Guzmán MD [address] [place] [address] [place], [place] [phone] [phone] (Wo rk) Social History Tobacco Use Types Packs/Day Years Used Date Smoking Tobacco: Unknown Comments: Smoking History Info:Patient n ot screened Sex Assigned at Date Recorded Not on file documented as of this encounter Miscellaneous Notes Dialysis Note - Ernie Pompa MD - 04/22/2020 11:52 AM CST Date: Apr 22, 2020 Patient Name: Shaun Ocampo : 1945 Chart #: [id number] Sex: M This patient was personally seen [...] AM ) BP (sit): 115/64 AP(-) / WET PROCESS MILLER: 258/208 Pulse: 67 Chairside data as [...] Every 4 weeks During Dialysis 04/15/2020 04/14/2021 AGRICULTURAL INSPECTOR: Ernie Pompa MD LOCATION: [phone] SCHEDULE: M-W-F 2nd Shift EDW: kg. DIALYZER: [...] prescription. Vascular Access Assessment Type of access: Migtduc03/2019 Surgeon - Lary GARDNER Access working well [...] above goal. Intact PTH is above goal. Mortuary Operations Manager will adjust binders and vitamin [...]
--- OUTSIDE RECORDS SUMMARY | 2022-01-04 06:46 | XMS_ITS | Encounter Summary ---
:1945 Author Organization [facility] Address [address] [place] [address] Care Team Providers Name Role Phone Unavailable Primary Care Provider Unavailable Encounter Details Date Type Department Care Team Description 06/10/2020 Treatment [facility] O Ernie Gómez MD [address] [place] [address] [place], [place] [phone] [phone] (Wo rk) Social History Tobacco Use Types Packs/Day Years Used Date Smoking Tobacco: Unknown Comments: Smoking History Info:Patient n ot screened Sex Assigned at Date Recorded Not on file documented as of this encounter Miscellaneous Notes Dialysis Note - Ernie Pompa MD - 06/10/2020 11:04 AM CDT Date: Jun 10, 2020 Patient Name: hSaun Ocampo : 1945 Chart #: [id number] Sex: M This patient was personally seen [...] AM ) BP (sit): 120/54 AP(-) / FOREST TECHNOLOGY PROFESSOR: 219/180 Pulse: 69 Chairside data as of [...] Every 4 weeks During Dialysis 04/15/2020 04/14/2021 LOADER MAGAZINE GRINDER: Ernie Pompa MD LOCATION: [phone] SCHEDULE: M-W-F 2nd Shift ACCESS: EDW: kg. [...] Went to Urgent care -> ER in [place] yesterday,CT with R hydro but no obstructive [...] (03/25/20) Vascular Access Assessment: Type of access: [id number]/2019 Surgeon - Lary GARDNER Access working well [...] time if can't maintain dry weight Ernie oPmpa MD [ Signed And locked electronically On 06/10/2020 at 11:06:45 AM ] Transcribed: Ernie Pompa ( 06/10/2020 ) documented in this encounter Plan of Treatment Not on filedocumented as of this encounter Visit Diagnoses Not on filedocumented in this encounter
--- OUTSIDE RECORDS SUMMARY | 2022-01-04 06:46 | XMS_ITS | Encounter Summary ---
:1945 Author Organization [facility] Address [address] [place] [address] Care Team Providers Name Role Phone Unavailable Primary Care Provider Unavailable Encounter Details Date Type Department Care Team Description 05/13/2020 Orders [facility] O f Ernie Guzmán MD [address] [place] [address] [place], [place] [phone] (Wo rk) Social History Tobacco Use [...] / Volume Laterality 05/13/2020 05/14/2020 3:41 PM PREP PERSON Narrative [facility]PS [facility]RA [facility] - 05/14/2020 Unless otherwise specified, test(s) performed at: [facility], [address] [place] [address] PROGRAMMING MANAGER: Alec Payan M.D. For any questions, please call customer service at FREQUENCY:OTHER Resulting Agency Comment Specimen source: Blood Ernie Pompa MD LAB BLOOD ORDERABLES Performing Organization Address City/State/ZIP Code Phon e Number [facility]RA [facility] documented in this encounter Visit Diagnoses Not on filedocumented in this encounter
--- OUTSIDE RECORDS SUMMARY | 2022-01-04 06:46 | XMS_ITS | Encounter Summary ---
:1945 Author Organization [facility] Address [address] [place] [address] Care Team Providers Name Role Phone Unavailable Primary Care Provider Unavailable Encounter Details Date Type Department Care Team Description 03/25/2020 Treatment [facility] f Ernie Guzmán MD [address] [place] [address] [place], [place] [phone] [phone] (Wo rk) Social History Tobacco Use Types Packs/Day Years Used Date Smoking Tobacco: Unknown Comments: Smoking History Info:Patient n ot screened Sex Assigned at Date Recorded Not on file documented as of this encounter Miscellaneous Notes Dialysis Note - Ernie Pompa MD - 03/25/2020 10:39 AM CST Date: Mar 25, 2020 Patient Name: Shaun Ocampo : 1945 Chart #: [id number] Sex: M This patient was personally seen [...] AM ) BP (sit): 115/62 AP(-) / SALES FORCE DEVELOPER: 248/203 Pulse: 72 Chairside data as of [...] Every 4 weeks During Dialysis 03/18/2020 03/17/2021 EMBOSSING MACHINE OPERATOR HELPER: Ernie Pompa MD LOCATION: [phone] SCHEDULE: M-W-F 2nd Shift EDW: kg. DIALYZER: [...] prescription. Vascular Access Assessment Type of access: [id number]/2019 Surgeon - Lary KUMARW Access working well [...] above goal. Intact PTH is at goal. Fence Maker will adjust binders and vitamin D [...]
--- OUTSIDE RECORDS SUMMARY | 2022-01-04 06:46 | XMS_ITS | Encounter Summary ---
:1945 Author Organization [facility] Address [address] [place] [address] Care Team Providers Name Role Phone Unavailable Primary Care Provider Unavailable Encounter Details Date Type Department Care Team Description 05/20/2020 Orders Only [facility] O f Ernie Guzmán MD [address] [place] [address] [place], [place] [phone] (Wo rk) Social History Tobacco Use [...] Volume Laterality 05/20/2020 05/21/2020 10:4 9 PM COMMUNITY CENTER COORDINATOR Resulting Agency Comment Specimen source: Plasma Ernie Pompa MD LAB BLOOD ORDERABLES Performing Organization Address City/[facility]/ZIP Code Phon e Number [facility]PS S[facility]RA [facility] POST CHEMISTRY (05/20/2020) athologist Signature BUN Post 12 6 - 19 APS SPECTRA Dialysis mg/dL [facility] Specimen (Source) Anatomical Collection Method Collection Time Re ceived Time Location / / Volume Laterality 05/20/2020 05/21/2020 10:4 8 PM COMMUNITY CENTER COORDINATOR Narrative [facility]PS S[facility]RA [facility] - 05/22/2020 Unless otherwise specified, test(s) performed at: [facility], [address] [place] [address] LEATHER DRESSER: Alec Payan M.D. For any questions, please [...] / Volume Laterality 05/20/2020 05/21/2020 6:17 PM COMMUNITY CENTER COORDINATOR Narrative [facility]PS SPECTRA [facility] - 05/22/2020 Unless otherwise specified, test(s) performed at: [facility], [address] [place] [address] LEATHER DRESSER: Alec Payan M.D. For any questions, please [...] / Volume Laterality 05/20/2020 05/21/2020 4:04 PM COMMUNITY CENTER COORDINATOR Narrative [facility]PS SPECTRA [facility] - 05/22/2020 Unless otherwise specified, test(s) performed at: [place] [address] LEATHER DRESSER: Alec Payan M.D. For any questions, please [...] / Volume Laterality 05/20/2020 05/21/2020 4:04 PM COMMUNITY CENTER COORDINATOR Narrative APS SPECTRA [facility] - 05/22/2020 Unless otherwise specified, test(s) performed at: [facility], [address] [place] [address] LEATHER DRESSER: Alec Payan M.D. For any questions, please call customer service at FREQUENCY:MONTHLY Resulting Agency Comment Specimen source: Blood Ernie Pompa MD LAB BLOOD ORDERABLES Performing Organization Address City/State/ZIP Code Phon e Number APS SPECTRA [facility] (ABNORMAL) Spectrae Chemistry (05/20/2020) [facility] gist Method Time Signature BUN 56 [...] / Volume Laterality 05/20/2020 05/21/2020 6:17 PM COMMUNITY CENTER COORDINATOR Narrative APS SPECTRA [facility] - 05/21/2020 Unless otherwise specified, test(s) performed at: [facility], [address] [place] [address] LEATHER DRESSER: Alec Payan M.D. For any questions, please call customer service at FREQUENCY:MONTHLY Resulting Agency Comment Specimen source: Serum Ernie Pompa MD LAB BLOOD ORDERABLES Performing Organization Address City/State/ZIP Code Phon e Number [facility]PS SPECTRA [facility] documented in this encounter Visit Diagnoses Not on filedocumented in this encounter
--- OUTSIDE RECORDS SUMMARY | 2022-01-04 06:47 | XMS_ITS | Encounter Summary ---
:1945 Author Organization [facility] Address [address] [place] [address] Care Team Providers Name Role Phone Unavailable Primary Care Provider Unavailable Encounter Details Date Type Department Care Team Description 10/09/2019 Treatment [facility] O Ernie Gómez MD [address] [place] [address] [place], [place] [phone] [phone] (Wo rk) Social History Tobacco Use Types Packs/Day Years Used Date Smoking Tobacco: Unknown Comments: Smoking History Info:Patient n ot screened Sex Assigned at Date Recorded Not on file documented as of this encounter Miscellaneous Notes Dialysis Note - Ernie Pompa MD - 10/09/2019 12:54 PM CDT Date: Oct 09, 2019 Patient Name: Shaun Ocampo : 1945 Chart #: [id number] Sex: M This patient was personally seen [...] PM ) BP (sit): 135/54 AP(-) / DIRECTOR OF STUDENT LIFE: 204/180 Pulse: 65 Chairside data as of [...] 1000 units IVP Every Treatment 05/01/2019 04/29/2020 TRAINING AND DEVELOPMENT DIRECTOR: Ernie Pompa MD LOCATION: [phone] SCHEDULE: M-W- 2nd Shift ACCESS: EDW: kg. [...] He had infiltration last week, dialyzed at [facility] on Sat and went well, access [...] (06/19/19) Vascular Access Assessment: Type of access: [id number]/2019 Surgeon - Lary GARDNER Access working well [...]
--- OUTSIDE RECORDS SUMMARY | 2022-01-04 06:47 | XMS_ITS | Encounter Summary ---
:1945 Author Organization [facility] Address [address] [place] [address] Care Team Providers Name Role Phone Unavailable Primary Care Provider Unavailable Encounter Details Date Type Department Care Team Description 01/08/2020 Orders Only [facility] O f Ernie Guzmán MD [address] [place] [address] [place], [place] [phone] (Wo rk) Social History Tobacco Use [...] 01/09/2020 Unless otherwise specified, test(s) performed at: [facility], [address] [place] [address] PERIODICALS LIBRARY ASSISTANT: Alec Payan M.D. For any questions, please call customer service at FREQUENCY:OTHER Resulting Agency Comment Specimen source: Blood Ernie Pompa MD LAB BLOOD ORDERABLES Performing Organization Address City/State/ZIP Code Phon e Number [facility]PS SPECTRA [facility] documented in this encounter Visit Diagnoses Not on filedocumented in this encounter
--- OUTSIDE RECORDS SUMMARY | 2022-01-04 06:47 | XMS_ITS | Encounter Summary ---
:1945 Author Organization [facility] Address [address] [place] [address] Care Team Providers Name Role Phone Unavailable Primary Care Provider Unavailable Encounter Details Date Type Department Care Team Description 01/08/2020 Treatment [facility] O Ernie Gómez MD [address] [place] [address] [place], [place] [phone] [phone] (Wo rk) Social History Tobacco Use Types Packs/Day Years Used Date Smoking Tobacco: Unknown Comments: Smoking History Info:Patient n ot screened Sex Assigned at Date Recorded Not on file documented as of this encounter Miscellaneous Notes Dialysis Note - Ernie Pompa MD - 01/08/2020 12:11 PM CDT Date: Jan 08, 2020 Patient Name: Shaun Ocampo : 1945 Chart #: [id number] Sex: M This patient was personally seen [...] PM ) BP (sit): 118/58 AP(-) / AUTOMATION CLERK: 261/204 Pulse: 66 Chairside data as of [...] IVP 1X Week During Dialysis 10/28/2019 10/19/2020 CERTIFIED PHARMACIST ASSISTANT: Ernie Pompa MD LOCATION: [phone] SCHEDULE: -W- 2nd Shift ACCESS: EDW: kg. [...] (07/24/19) Vascular Access Assessment: Type of access: [id number]/2019 Surgeon - Lary GARDNER Access working well Impression and Plan No changes, stable dialysis Ernie Pompa MD [ Signed And locked electronically On 01/08/2020 at 12:12:00 PM ] Transcribed: Ernie Pompa ( 01/08/2020 ) documented in this encounter Plan of Treatment Not on filedocumented as of this encounter Visit Diagnoses Not on filedocumented in this encounter
--- OUTSIDE RECORDS SUMMARY | 2022-01-04 06:47 | XMS_ITS | Encounter Summary ---
:1945 Author Organization [facility] Address [address] [place] [address] Care Team Providers Name Role Phone Unavailable Primary Care Provider Unavailable Encounter Details Date Type Department Care Team Description 09/11/2019 Orders Only [facility] O f Ernie Guzmán MD [address] [place] [address] [place], [place] [phone] (Wo rk) Social History Tobacco Use [...] in this encounter Results (ABNORMAL) HEMATOLOGY (09/11/2019) [facility] gist Method Time Signature Neutrophils 73.8 [...] 09/13/2019 Unless otherwise specified, test(s) performed at: [facility], [address] [place] [address] SWITCHBOARD OPERATOR RECEPTIONIST: Alec Payan M.D. For any questions, please call customer service at FREQUENCY:OTHER Resulting Agency Comment Specimen source: Blood Ernie Pompa MD LAB BLOOD ORDERABLES Performing Organization Address City/State/ZIP Code Phon e Number APS SPECTRA [facility] documented in this encounter Visit Diagnoses Not on filedocumented in this encounter
--- OUTSIDE RECORDS SUMMARY | 2022-01-04 06:47 | XMS_ITS | Encounter Summary ---
:1945 Author Organization [facility] Address [address] [place] [address] Care Team Providers Name Role Phone Unavailable Primary Care Provider Unavailable Encounter Details Date Type Department Care Team Description 12/04/2019 Treatment [facility] O Ernie Gómez MD [address] [place] [address] [place], [place] [phone] [phone] (Wo rk) Social History Tobacco Use Types Packs/Day Years Used Date Smoking Tobacco: Unknown Comments: Smoking History Info:Patient n ot screened Sex Assigned at Date Recorded Not on file documented as of this encounter Miscellaneous Notes Dialysis Note - Ernie Pompa MD - 12/04/2019 12:16 PM CDT Date: Dec 04, 2019 Patient Name: Shaun Ocampo : 1945 Chart #: [id number] Sex: M This patient was personally seen [...] Every 2 weeks During Dialysis 11/27/2019 11/25/2020 MARKETING ANALYTICS ANALYST: Ernie Pompa MD LOCATION: [phone] SCHEDULE: -- 2nd Shift ACCESS: EDW: kg. [...] (06/19/19) Vascular Access Assessment: Type of access: [id number]/2019 Surgeon - Lary KUMARW Access working well [...]
--- OUTSIDE RECORDS SUMMARY | 2022-01-04 06:47 | XMS_ITS | Encounter Summary ---
:1945 Author Organization [facility] Address [address] [place] [address] Care Team Providers Name Role Phone Unavailable Primary Care Provider Unavailable Encounter Details Date Type Department Care Team Description 12/11/2019 Orders Only [facility] O f Ernie Guzmán MD [address] [place] [address] [place], [place] [phone] (Wo rk) Social History Tobacco Use [...] 12/12/2019 Unless otherwise specified, test(s) performed at: [facility], [address] [place] [address] PHYSICAL GEOGRAPHER: Alec Payan M.D. For any questions, please call customer service at FREQUENCY:OTHER Resulting Agency Comment Specimen source: Blood Ernie Pompa MD LAB BLOOD ORDERABLES Performing Organization Address City/State/ZIP Code Phon e Number [facility]PS SPECTRA [facility] documented in this encounter Visit Diagnoses Not on filedocumented in this encounter
--- OUTSIDE RECORDS SUMMARY | 2022-01-04 06:47 | XMS_ITS | Encounter Summary ---
:1945 Author Organization [facility] Address [address] [place] [address] Care Team Providers Name Role Phone Unavailable Primary Care Provider Unavailable Encounter Details Date Type Department Care Team Description 01/22/2020 [facility] Only [facility] O f Ernie Guzmán MD [address] [place] [address] [place], [place] [phone] (Wo rk) Social History Tobacco Use [...] . documented in this encounter Results [facility] Lab Results (01/22/2020) P athologist Signature spKt/V [...] / Volume Laterality 01/22/2020 01/23/2020 8:20 PM ENROLLMENT MANAGEMENT VICE PRESIDENT Narrative APS SPECTRA [facility] - 01/24/2020 Unless otherwise specified, test(s) performed at: [facility], [address] [place], [place] [id number] POSITIVE PRINTER OPERATOR: Alec Payan M.D. For any questions, [...] / Volume Laterality 01/22/2020 01/23/2020 8:13 PM ENROLLMENT MANAGEMENT VICE PRESIDENT Narrative [facility]RA [facility] - 01/24/2020 Unless otherwise specified, test(s) performed at: [facility], [address] [place] [address] POSITIVE PRINTER OPERATOR: Alec Payan M.D. For any questions, please call customer service at FREQUENCY:MONTHLY Resulting Agency Comment Specimen source: Serum Ernie Pompa MD LAB BLOOD ORDERABLES Performing Organization Address City/[facility] Phon e Number [facility]PS [facility]RA [facility] HD KINETICS (01/22/2020) P athologist Signature % Urea 77 65 - 80 % APS SPECTRA Reduction [facility] Specimen (Source) Anatomical Collection Method Collection Time Re ceived Time Location / / Volume Laterality 01/22/2020 01/23/2020 8:14 PM ENROLLMENT MANAGEMENT VICE PRESIDENT Narrative [facility] - 01/24/2020 Unless otherwise specified, test(s) performed at: [facility], [address] [place] [address] POSITIVE PRINTER OPERATOR: Alec Payan M.D. For any questions, [...] / Volume Laterality 01/22/2020 01/23/2020 8:13 PM ENROLLMENT MANAGEMENT VICE PRESIDENT Narrative [facility] - 01/24/2020 Unless otherwise specified, test(s) performed at: [facility], [address] [place] [address] POSITIVE PRINTER OPERATOR: Alec Payan M.D. For any questions, please call customer service at FREQUENCY:MONTHLY Resulting Agency Comment Specimen source: Serum Ernie Pompa MD LAB BLOOD ORDERABLES Performing Organization Address City/[facility] Phon e Number [facility] POST CHEMISTRY (01/22/2020) P athologist Signature BUN Post 16 6 - 19 APS SPECTRA Dialysis mg/dL [facility] Specimen (Source) Anatomical Collection Method Collection Time Re ceived Time Location / / Volume Laterality 01/22/2020 01/23/2020 1:17 PM ENROLLMENT MANAGEMENT VICE PRESIDENT Narrative [facility] - 01/23/2020 Unless otherwise specified, test(s) performed at: [facility], [address] [place] [address] POSITIVE PRINTER OPERATOR: Alec Payan M.D. For any questions, please call customer service at FREQUENCY:MONTHLY Resulting Agency Comment Specimen source: Plasma Ernie Pompa MD LAB BLOOD ORDERABLES Performing Organization Address City/[facility] Phon e Number APS SPECTRA [facility] documented in this encounter Visit Diagnoses Not on filedocumented in this encounter
--- OUTSIDE RECORDS SUMMARY | 2022-01-04 06:47 | XMS_ITS | Encounter Summary ---
:1945 Author Organization [facility] Address [address] [place] [address] Care Team Providers Name Role Phone Unavailable Primary Care Provider Unavailable Encounter Details Date Type Department Care Team Description 11/04/2019 [facility] O f Ernie Guzmán MD [address] [place] [address] [place], [place] [phone] (Wo rk) Social History Tobacco Use [...] in this encounter Results (ABNORMAL) HEMATOLOGY (11/04/2019) [facility] gist Method Time Signature Neutrophils 77.4 (H) [...] 11/05/2019 Unless otherwise specified, test(s) performed at: [facility], [address] [place] [address] REGISTERED VASCULAR TECHNOLOGIST (RVT): Alec Payan M.D. For any questions, please call customer service at FREQUENCY:OTHER Resulting Agency Comment Specimen source: Blood Ernie Pompa MD LAB BLOOD ORDERABLES Performing Organization Address City/State/ZIP Code Phon e Number APS SPECTRA [facility] documented in this encounter Visit Diagnoses Not on filedocumented in this encounter
--- OUTSIDE RECORDS SUMMARY | 2022-01-04 06:47 | XMS_ITS | Encounter Summary ---
:1945 Author Organization [facility] Address [address] [place] [address] Care Team Providers Name Role Phone Unavailable Primary Care Provider Unavailable Encounter Details Date Type Department Care Team Description 09/11/2019 Treatment [facility] O Ernie Gómez MD [address] [place] [address] [place], [place] [address] [phone] (Wo rk) Social History Tobacco Use Types Packs/Day Years Used Date Smoking Tobacco: Unknown Comments: Smoking History Info:Patient n ot screened Sex Assigned at Date Recorded Not on file documented as of this encounter Miscellaneous Notes Dialysis Note - Ernie Pompa MD - 09/11/2019 12:23 PM CDT Date: Sep 11, 2019 Patient Name: Shaun Ocampo : 1945 Chart #: [id number] Sex: M This patient was personally seen [...] PM ) BP (sit): 149/59 AP(-) / PAYROLL ASSISTANT: 209/174 Pulse: 66 Chairside data as [...] 08/23/2019 08/02/2019 Access Flow > 2000 1510 SALES CLERK FOOD: Ernie Pompa MD LOCATION: [place] [phone] SCHEDULE: -- 2nd Shift ACCESS: EDW: kg. [...] (05/01/19) Vascular Access Assessment: Type of access: [email or web address]/2019 Surgeon - Lary GARDNER Access working well [...]
--- OUTSIDE RECORDS SUMMARY | 2022-01-04 06:47 | XMS_ITS | Encounter Summary ---
:1945 Author Organization [facility] Address [address] [place] [address] Care Team Providers Name Role Phone Unavailable Primary Care Provider Unavailable Encounter Details Date Type Department Care Team Description 11/20/2019 [facility] O f Ernie Guzmán MD [address] [place] [address] [place], [place] [phone] (Wo rk) Social History Tobacco Use [...] 1.74 KAMERON (Daugirdas II) spKt/V Gotch 1.83 KAMREON PCR 75.65 KAMERON eKt/V Gotch 1.59 KAMERON [...] 11/21/2019 Unless otherwise specified, test(s) performed at: [facility], [address] [place] [address] TECHNICAL PROFESSIONAL: Alec Payan M.D. For any questions, [...] APS SPECTRA [facility] (ABNORMAL) [facility] Chemistry (11/20/2019) [facility] gist Method Time Signature BUN 51 (H) [...] 11/21/2019 Unless otherwise specified, test(s) performed at: [facility], [address] [place] [address] TECHNICAL PROFESSIONAL: Alec Payan M.D. For any questions, please call customer service at FREQUENCY:MONTHLY Resulting Agency Comment Specimen source: Serum Ernie Pompa MD LAB BLOOD ORDERABLES Performing Organization Address City/State/ZIP Code Phon e Number [facility]PS SPECTRA [facility] (ABNORMAL) HEMATOLOGY (11/20/2019) [facility] gist Method Time Signature WBC 6.23 [...] 11/21/2019 Unless otherwise specified, test(s) performed at: [facility], [address] [place] [address] TECHNICAL PROFESSIONAL: Alec Payan M.D. For any questions, please call customer service at FREQUENCY:MONTHLY Resulting Agency Comment Specimen source: Blood Ernie Pompa MD LAB BLOOD ORDERABLES Performing Organization Address City/State/ZIP Code Phon e Number APS SPECTRA [facility] documented in this encounter Visit Diagnoses Not on filedocumented in this encounter
--- OUTSIDE RECORDS SUMMARY | 2022-01-04 06:47 | XMS_ITS | Encounter Summary ---
:1945 Author Organization [facility] Address [address] [place] [address] Care Team Providers Name Role Phone Unavailable Primary Care Provider Unavailable Encounter Details Date Type Department Care Team Description 11/06/2019 [facility] O f Ernie Guzmán MD [address] [place] [address] [place], [place] [phone] (Wo rk) Social History Tobacco Use [...] in this encounter Results (ABNORMAL) HEMATOLOGY (11/06/2019) [facility] gist Method Time Signature Neutrophils 75.2 [...] 11/07/2019 Unless otherwise specified, test(s) performed at: [facility], [address] [address] SERVICE CENTER TECHNICIAN: Alce Payan M.D. For any questions, please call customer service at FREQUENCY:OTHER Resulting Agency Comment Specimen source: Blood Ernie Pompa MD LAB BLOOD ORDERABLES Performing Organization Address City/State/ZIP Code Phon e Number APS SPECTRA [facility] documented in this encounter Visit Diagnoses Not on filedocumented in this encounter
--- OUTSIDE RECORDS SUMMARY | 2022-01-04 06:47 | XMS_ITS | Encounter Summary ---
:1945 Author Organization [facility] Address [address] [place] [address] Care Team Providers Name Role Phone Unavailable Primary Care Provider Unavailable Encounter Details Date Type Department Care Team Description 01/29/2020 Treatment [facility] O Ernie Gómez MD [address] [place] [address] [place], [place] [address] [phone] (Wo rk) Social History Tobacco Use Types Packs/Day Years Used Date Smoking Tobacco: Unknown Comments: Smoking History Info:Patient n ot screened Sex Assigned at Date Recorded Not on file documented as of this encounter Miscellaneous Notes Dialysis Note - Ernie Pompa MD - 01/29/2020 9:56 AM CST Date: Jan 29, 2020 Patient Name: Shaun Ocampo : 1945 Chart #: [id number] Sex: M This patient was personally seen [...] AM ) BP (sit): 133/53 AP(-) / SUCTION ROLLER: 267/328 Pulse: 71 Chairside data as of [...] Every 2 weeks During Dialysis 01/22/2020 01/20/2021 [facility] TECHNICIAN: Ernie Pompa MD LOCATION: [facility] [phone] SCHEDULE: M-W-F 2nd Shift ACCESS: EDW: kg. [...] (07/24/19) Vascular Access Assessment: Type of access: [id number]/2019 Surgeon - Lary GARDNER Access working well Impression and Plan No changes, stable dialysis Discussed lowering phos in diet today and will use binder next month if not in control Ernie Pmopa MD [ Signed And locked electronically On 01/29/2020 at 09:57:54 AM ] Transcribed: Ernie Pompa ( 01/29/2020 ) documented in this encounter Plan of Treatment Not on filedocumented as of this encounter Visit Diagnoses Not on filedocumented in this encounter
--- OUTSIDE RECORDS SUMMARY | 2022-01-04 06:47 | XMS_ITS | Encounter Summary ---
:1945 Author Organization [facility] Address [address] [place] [address] Care Team Providers Name Role Phone Unavailable Primary Care Provider Unavailable Encounter Details Date Type Department Care Team Description 10/23/2019 [facility] O f Ernie Guzmán MD [address] [place] [address] [place], [place] [phone] (Wo rk) Social History Tobacco Use [...] 10/25/2019 Unless otherwise specified, test(s) performed at: [facility], [address] [place] [address] CRACKING STILL OPERATOR: Alec Payan M.D. For any questions, please call customer service at FREQUENCY:MONTHLY Resulting Agency Comment Specimen source: Serum Ernie Pompa MD LAB BLOOD ORDERABLES Performing Organization Address City/State/ZIP Code Phon e Number APS SPECTRA [facility] (ABNORMAL) HEMATOLOGY (10/23/2019) [facility] gist Method Time Signature WBC 6.46 [...] 10/24/2019 Unless otherwise specified, test(s) performed at: [facility], [address] [place] [address] CRACKING STILL OPERATOR: Alec Payan M.D. For any questions, please call customer service at FREQUENCY:MONTHLY Resulting Agency Comment Specimen source: Blood Ernie Pompa MD LAB BLOOD ORDERABLES Performing Organization Address City/State/ZIP Code Phon e Number [facility]PS SPECTRA [facility] documented in this encounter Visit Diagnoses Not on filedocumented in this encounter
--- OUTSIDE RECORDS SUMMARY | 2022-01-04 06:47 | XMS_ITS | Encounter Summary ---
:1945 Author Organization [facility] Address [address] [place] [address] Care Team Providers Name Role Phone Unavailable Primary Care Provider Unavailable Encounter Details Date Type Department Care Team Description 01/22/2020 Treatment [facility] O Ernie Gómez MD [address] [place] [address] [place], [place] [address] [phone] (Wo rk) Social History Tobacco Use Types Packs/Day Years Used Date Smoking Tobacco: Unknown Comments: Smoking History Info:Patient n ot screened Sex Assigned at Date Recorded Not on file documented as of this encounter Miscellaneous Notes Dialysis Note - Ernie Pompa MD - 01/22/2020 9:00 AM CST Date: Jan 22, 2020 Patient Name: Shaun Ocampo : 1945 Chart #: [id number] Sex: M This patient was personally seen [...] AM ) BP (sit): 139/67 AP(-) / LAB TECHNICIAN: n/a Pulse: 72 Chairside data as of [...] Every 2 weeks During Dialysis 01/22/2020 01/20/2021 SOCIAL MEDIA INTERN: Ernie Pompa MD LOCATION: [facility] [phone] SCHEDULE: M-W-F 2nd Shift EDW: kg. DIALYZER: [...] prescription. Vascular Access Assessment Type of access: [id number]/2019 Surgeon - Lary KUMARW Access working well [...] above goal. Intact PTH is at goal. Volleyball Commentator will adjust binders and vitamin D per [...]
--- OUTSIDE RECORDS SUMMARY | 2022-01-04 06:47 | XMS_ITS | Encounter Summary ---
:1945 Author Organization [facility] Address [address] [place] [address] Care Team Providers Name Role Phone Unavailable Primary Care Provider Unavailable Encounter Details Date Type Department Care Team Description 12/18/2019 Orders [facility] O f Ernie Guzmán MD [address] [place] [address] [place], [place] [phone] (Wo rk) Social History Tobacco Use [...] 12/19/2019 Unless otherwise specified, test(s) performed at: [facility], [address] [place] [address] CAREGIVERS NON MEDICAL: Alec Payan M.D. For any questions, please call customer service at FREQUENCY:OTHER Resulting Agency Comment Specimen source: Blood Ernie Pompa MD LAB BLOOD ORDERABLES Performing Organization Address City/State/ZIP Code Phon e Number APS SPECTRA [facility] documented in this encounter Visit Diagnoses Not on filedocumented in this encounter
--- OUTSIDE RECORDS SUMMARY | 2022-01-04 06:47 | XMS_ITS | Encounter Summary ---
:1945 Author Organization [facility] Address [address] [place] [address] Care Team Providers Name Role Phone Unavailable Primary Care Provider Unavailable Encounter Details Date Type Department Care Team Description 01/29/2020 [facility] O f Ernie Guzmán MD [address] [place] [address] [place], [place] [phone] (Wo rk) Social History Tobacco Use [...] / Volume Laterality 01/29/2020 01/30/2020 5:28 PM STAGE MANAGER Narrative APS SPECTRA [facility] - 01/30/2020 Unless otherwise specified, test(s) performed at: [facility], [address] [place] [address] ROUND BONER: Alec Payan M.D. For any questions, please [...] / Volume Laterality 01/29/2020 01/30/2020 1:32 PM STAGE MANAGER Narrative APS SPECTRA [facility] - 01/30/2020 Unless otherwise specified, test(s) performed at: [facility], [address] [place] [address] ROUND BONER: Alec Payan M.D. For any questions, please call customer service at FREQUENCY:OTHER Resulting Agency Comment Specimen source: Blood Ernie Pompa MD LAB BLOOD ORDERABLES Performing Organization Address City/State/ZIP Code Phon e Number APS SPECTRA [facility] documented in this encounter Visit Diagnoses Not on filedocumented in this encounter
--- OUTSIDE RECORDS SUMMARY | 2022-01-04 06:47 | XMS_ITS | Encounter Summary ---
:1945 Author Organization [facility] Address [address] [place] [address] Care Team Providers Name Role Phone Unavailable Primary Care Provider Unavailable Encounter Details Date Type Department Care Team Description 09/25/2019 Treatment [facility] O Ernie Gómez MD [address] [place] [address] [place], [place] [address] [phone] (Wo rk) Social History Tobacco Use Types Packs/Day Years Used Date Smoking Tobacco: Unknown Comments: Smoking History Info:Patient n ot screened Sex Assigned at Date Recorded Not on file documented as of this encounter Miscellaneous Notes Dialysis Note - Ernie Pompa MD - 09/25/2019 10:54 AM CDT Date: Sep 25, 2019 Patient Name: Shaun Ocampo : 1945 Chart #: [id number] Sex: M This patient was personally seen [...] AM ) BP (sit): 156/55 AP(-) / CLASSIFIED AD TAKER: 212/172 Pulse: 63 Chairside data as of [...] 08/23/2019 08/02/2019 Access Flow > 2000 1510 [facility] REFINERY LABORER: Ernie Pompa MD LOCATION: [place] [phone] SCHEDULE: -- 2nd Shift EDW: kg. DIALYZER: [...] prescription. Vascular Access Assessment Type of access: [id number]/2019 Surgeon Annita KUMARW Access working well Anemia [...] at goal. Intact PTH is below goal. Gamma Ray Operator will adjust binders and vitamin D [...]
--- OUTSIDE RECORDS SUMMARY | 2022-01-04 06:47 | XMS_ITS | Encounter Summary ---
:1945 Author Organization [facility] Address [address] [place] [address] Care Team Providers Name Role Phone Unavailable Primary Care Provider Unavailable Encounter Details Date Type Department Care Team Description 11/13/2019 Orders [facility] O f Ernie Guzmán MD [address] [place] [address] [place], [place] [phone] (Wo rk) Social History Tobacco Use [...] 11/14/2019 Unless otherwise specified, test(s) performed at: [facility], [address] [place] [address] CAMERA ENGINEER: Alec Payan M.D. For any questions, [...] 11/14/2019 Unless otherwise specified, test(s) performed at: [facility], [address] [place] [address] CAMERA ENGINEER: Alec Payan M.D. For any questions, please call customer service at FREQUENCY:OTHER Resulting Agency Comment Specimen source: Blood Ernie Pompa MD LAB BLOOD ORDERABLES Performing Organization Address City/[facility] Phon e Number APS SPECTRA [facility] documented in this encounter Visit Diagnoses Not on filedocumented in this encounter
--- OUTSIDE RECORDS SUMMARY | 2022-01-04 06:47 | XMS_ITS | Encounter Summary ---
:1945 Author Organization [facility] Address [address] [place] [address] Care Team Providers Name Role Phone Unavailable Primary Care Provider Unavailable Encounter Details Date Type Department Care Team Description 10/09/2019 Orders [facility] O f Ernie Guzmán MD [address] [place] [address] [place], [place] [phone] (Wo rk) Social History Tobacco Use [...] 10/10/2019 Unless otherwise specified, test(s) performed at: [facility], [address] [place] [address] FISHER SPONGE HOOKING: Alec Payan M.D. For any questions, please call customer service at FREQUENCY:OTHER Resulting Agency Comment Specimen source: Serum Ernie Pompa MD LAB BLOOD ORDERABLES Performing Organization Address City/State/[facility] Code Phon e Number APS [...] 10/10/2019 Unless otherwise specified, test(s) performed at: [facility], [address] [place] [address] FISHER SPONGE HOOKING: Alec Payan M.D. For any questions, please call customer service at FREQUENCY:OTHER Resulting Agency Comment Specimen source: Blood Ernie Pompa MD LAB BLOOD ORDERABLES Performing Organization Address City/[facility] Code Phon e Number APS SPECTRA [facility] documented in this encounter Visit Diagnoses Not on filedocumented in this encounter
--- OUTSIDE RECORDS SUMMARY | 2022-01-04 06:47 | XMS_ITS | Encounter Summary ---
:1945 Author Organization [facility] Address [address] [place] [address] Care Team Providers Name Role Phone Unavailable Primary Care Provider Unavailable Encounter Details Date Type Department Care Team Description 10/16/2019 Orders Only [facility] O f Ernie Guzmán MD [address] [place] [address] [place], [place] [phone] (Wo rk) Social History Tobacco Use [...] in this encounter Results (ABNORMAL) HEMATOLOGY (10/16/2019) [facility] gist Method Time Signature Neutrophils 74.6 [...] 10/17/2019 Unless otherwise specified, test(s) performed at: [facility], [address] [place] [address] CALENDERER: Alec Payan M.D. For any questions, please call customer service at FREQUENCY:OTHER Resulting Agency Comment Specimen source: Blood Ernie Pompa MD LAB BLOOD ORDERABLES Performing Organization Address City/State/ZIP Code Phon e Number APS SPECTRA [facility] documented in this encounter Visit Diagnoses Not on filedocumented in this encounter
--- OUTSIDE RECORDS SUMMARY | 2022-01-04 06:47 | XMS_ITS | Encounter Summary ---
:1945 Author Organization [facility] Address [address] [place] [address] Care Team Providers Name Role Phone Unavailable Primary Care Provider Unavailable Encounter Details Date Type Department Care Team Description 01/15/2020 Orders Only [facility] O f Ernie Guzmán MD [address] [place] [address] [place], [place] [phone] (Wo rk) Social History Tobacco Use [...] 01/16/2020 Unless otherwise specified, test(s) performed at: [facility], [address] [place] [address] EXPEDITIONARY FORCE COMBAT SKILLS: Alec Payan M.D. For any questions, please call customer service at FREQUENCY:OTHER Resulting Agency Comment Specimen source: Blood Ernie Pompa MD LAB BLOOD ORDERABLES Performing Organization Address City/State/ZIP Code Phon e Number APS SPECTRA [facility] documented in this encounter Visit Diagnoses Not on filedocumented in this encounter
--- OUTSIDE RECORDS SUMMARY | 2022-01-04 06:47 | XMS_ITS | Encounter Summary ---
:1945 Author Organization [facility] Address [address] [place] [address] Care Team Providers Name Role Phone Unavailable Primary Care Provider Unavailable Encounter Details Date Type Department Care Team Description 01/01/2020 Orders Only [facility] O f Ernie Guzmán MD [address] [place] [address] [place], [place] [phone] (Wo rk) Social History Tobacco Use [...] Provider LAB BLOOD ORDERABLES Performing Organization Address City/[facility]/ZIP Code Phon e Number [facility] (01/01/2020) P athologist Signature % Urea 77 65 - 80 % APS SPECTRA Reduction [facility] Specimen (Source) Anatomical Collection Method Collection Time Re ceived Time Location / / Volume Laterality 01/01/2020 01/02/2020 6:37 PM CDT Narrative APS SPECTRA [facility] - 01/02/2020 Unless otherwise specified, test(s) performed at: [facility], [address] [place] [address] LEAD SECTION SUPERVISOR: Alec Payan M.D. For any questions, please call customer service at FREQUENCY:OTHER Resulting Agency Comment Specimen source: Serum Ernie Pompa MD LAB BLOOD ORDERABLES Performing Organization Address [facility] Phon e Number APS SPECTRA [facility] (ABNORMAL) Spectrae Chemistry (01/01/2020) P athologist Signature BUN 53 (H) 6 - 19 APS SPECTRA mg/dL [facility] Specimen (Source) Anatomical Collection Method Collection Time Re ceived Time Location / / Volume Laterality 01/01/2020 01/02/2020 6:36 PM CDT Narrative APS SPECTRA [facility] - 01/02/2020 Unless otherwise specified, test(s) performed at: [facility], [address] [place], [place] [id number] LEAD SECTION SUPERVISOR: Alec Payan M.D. For any questions, please call customer service at FREQUENCY:OTHER Resulting Agency Comment Specimen source: Serum Ernie Pompa MD LAB BLOOD ORDERABLES Performing Organization Address City/[facility] Phon e Number APS SPECTRA [...] 01/02/2020 Unless otherwise specified, test(s) performed at: [facility], [address] [place] [address] LEAD SECTION SUPERVISOR: Alec Payan M.D. For any questions, please call customer service at FREQUENCY:OTHER Resulting Agency Comment Specimen source: Blood Ernie Pompa MD LAB BLOOD ORDERABLES Performing Organization Address City/State/[facility] Code Phon e Number APS SPECTRA [facility] POST CHEMISTRY (01/01/2020) P athologist Signature BUN Post 12 6 - 19 APS SPECTRA Dialysis mg/dL [facility] Specimen (Source) Anatomical Collection Method Collection Time Re ceived Time Location / / Volume Laterality 01/01/2020 01/02/2020 2:30 PM CDT Narrative APS SPECTRA [facility] - 01/02/2020 Unless otherwise specified, test(s) performed at: [facility], [address] [place] [address] LEAD SECTION SUPERVISOR: Alec Payan M.D. For any questions, please call customer service at FREQUENCY:OTHER Resulting Agency Comment Specimen source: Plasma Ernie Pompa MD LAB BLOOD ORDERABLES Performing Organization Address City/State/[facility] Code Phon e Number APS SPECTRA [facility] documented in this encounter Visit Diagnoses Not on filedocumented in this encounter
--- OUTSIDE RECORDS SUMMARY | 2022-01-04 06:47 | XMS_ITS | Encounter Summary ---
:1945 Author Organization [facility] Address [address] [place] [address] Care Team Providers Name Role Phone Unavailable Primary Care Provider Unavailable Encounter Details Date Type Department Care Team Description 09/18/2019 Orders Only [facility] O f Ernie Guzmán MD [address] [place] [address] [place], [place] [phone] (Wo rk) Social History Tobacco Use [...] 09/20/2019 Unless otherwise specified, test(s) performed at: [facility], [address] [place] [address] REVIEW ASSISTANT: Alec Payan M.D. For any questions, [...] 09/19/2019 Unless otherwise specified, test(s) performed at: [facility], [address] [place], [place] [id number] REVIEW ASSISTANT: Alec Payan M.D. For any questions, [...] LAB BLOOD ORDERABLES Performing Organization Address [facility] Code Phon [...] 09/19/2019 Unless otherwise specified, test(s) performed at: [facility], [address] [place] [address] REVIEW ASSISTANT: Alec Payan M.D. For any questions, please call customer service at FREQUENCY:MONTHLY Resulting Agency Comment Specimen source: Serum Ernie Pompa MD LAB BLOOD ORDERABLES Performing Organization Address City/State/ZIP Code Phon e Number APS SPECTRA [facility] (ABNORMAL) HEMATOLOGY (09/18/2019) [facility] gist Method Time Signature WBC 5.19 [...] 09/19/2019 Unless otherwise specified, test(s) performed at: [facility], [address] [place] [address] REVIEW ASSISTANT: Alec Payan M.D. For any questions, please call customer service at FREQUENCY:MONTHLY Resulting Agency Comment Specimen source: Blood Ernie oPmpa MD LAB BLOOD ORDERABLES Performing Organization Address City/State/ZIP Code Phon e Number APS SPECTRA [facility] documented in this encounter Visit Diagnoses Not on filedocumented in this encounter
--- OUTSIDE RECORDS SUMMARY | 2022-01-04 06:47 | XMS_ITS | Encounter Summary ---
:1945 Author Organization [facility] Address [address] [place] [address] Care Team Providers Name Role Phone Unavailable Primary Care Provider Unavailable Encounter Details Date Type Department Care Team Description 12/25/2019 Treatment [facility] O Ernie Gómez MD [address] [place] [address] [place], [place] [phone] (Wo rk) Social History Tobacco Use Types Packs/Day Years Used Date Smoking Tobacco: Unknown Comments: Smoking History Info:Patient n ot screened Sex Assigned at Date Recorded Not on file documented as of this encounter Miscellaneous Notes Dialysis Note - Ernie Pompa MD - 12/25/2019 11:33 AM CDT Date: Dec 25, 2019 Patient Name: Shaun Ocampo : 1945 Chart #: [id number] Sex: M This patient was personally seen [...] AM ) BP (sit): 118/50 AP(-) / SUGAR PLANTATION MANAGER: 258/222 Pulse: 64 Chairside data as of [...] Access Flow > 2000 > 2000 1011 SENIOR DIRECTOR CREATIVE SERVICES: Ernie Pmopa MD LOCATION: [place] [phone] SCHEDULE: M-W- 2nd Shift EDW: kg. DIALYZER: [...] prescription. Vascular Access Assessment Type of access: Mgkgiew36/2019 Surgeon Annita KUMARW Access working well Anemia [...] above goal. Intact PTH is below goal. Social Welfare Administrator will adjust binders and vitamin D per [...]
--- OUTSIDE RECORDS SUMMARY | 2022-01-04 06:47 | XMS_ITS | Encounter Summary ---
:1945 Author Organization [facility] Address [address] [place] [address] Care Team Providers Name Role Phone Unavailable Primary Care Provider Unavailable Encounter Details Date Type Department Care Team Description 11/06/2019 Treatment [facility] O Ernie Gómez MD [address] [place] [address] [place], [place] [address] [phone] (Wo rk) Social History Tobacco Use Types Packs/Day Years Used Date Smoking Tobacco: Unknown Comments: Smoking History Info:Patient n ot screened Sex Assigned at Date Recorded Not on file documented as of this encounter Miscellaneous Notes Dialysis Note - Ernie Pompa MD - 11/06/2019 12:22 PM CDT Date: Nov 06, 2019 Patient Name: Shaun Ocampo : 1945 Chart #: [id number] Sex: M This patient was personally seen [...] PM ) BP (sit): 139/63 AP(-) / PROP SAWYER: 235/181 Pulse: 64 Chairside data as of [...] IVP 1X Week During Dialysis 10/28/2019 10/19/2020 SEWING INSPECTOR: Ernie Pompa MD LOCATION: [phone] SCHEDULE: M-W- 2nd Shift EDW: kg. DIALYZER: [...] had infiltration last week, dialyzed at [facility] on Sat and went well, [...] prescription. Vascular Access Assessment Type of access: Uyandyy80/2019 Surgeon - Lary KUMARW Access working well [...] above goal. Intact PTH is below goal. Order Entry Representative will adjust binders and vitamin D [...]
--- OUTSIDE RECORDS SUMMARY | 2022-01-04 06:47 | XMS_ITS | Encounter Summary ---
:1945 Author Organization [facility] Address [address] [place] [address] Care Team Providers Name Role Phone Unavailable Primary Care Provider Unavailable Encounter Details Date Type Department Care Team Description 02/05/2020 [facility] O f Ernie Guzmán MD [address] [place] [address] [place], [place] [phone] (Wo rk) Social History Tobacco Use [...] Volume Laterality 02/05/2020 02/06/2020 10:4 4 AM AIR HOIST OPERATOR Narrative APS SPECTRA [facility] - 02/06/2020 Unless otherwise specified, test(s) performed at: [facility], [address] [place] [address] LOAN CONSULTANT: Alec Payan M.D. For any questions, please call customer service at FREQUENCY:OTHER Resulting Agency Comment Specimen source: Blood Ernie Pompa MD LAB BLOOD ORDERABLES Performing Organization Address City/State/ZIP Code Phon e Number APS SPECTRA [facility] documented in this encounter Visit Diagnoses Not on filedocumented in this encounter
--- OUTSIDE RECORDS SUMMARY | 2022-01-04 06:47 | XMS_ITS | Encounter Summary ---
:1945 Author Organization [facility] Address [address] [place] [address] Care Team Providers Name Role Phone Unavailable Primary Care Provider Unavailable Encounter Details Date Type Department Care Team Description 11/27/2019 Orders Only [facility] O f Ernie Guzmán MD [address] [place] [address] [place], [place] [phone] (Wo rk) Social History Tobacco Use [...] in this encounter Results (ABNORMAL) HEMATOLOGY (11/27/2019) [facility] gist Method Time Signature Neutrophils 77.3 [...] 11/29/2019 Unless otherwise specified, test(s) performed at: [facility], [address] [place] [address] INTERVENTIONAL CARDIOLOGIST: Alec Payan M.D. For any questions, please call customer service at FREQUENCY:OTHER Resulting Agency Comment Specimen source: Blood Ernie Pompa MD LAB BLOOD ORDERABLES Performing Organization Address City/State/ZIP Code Phon e Number APS SPECTRA [facility] documented in this encounter Visit Diagnoses Not on filedocumented in this encounter
--- OUTSIDE RECORDS SUMMARY | 2022-01-04 06:47 | XMS_ITS | Encounter Summary ---
:1945 Author Organization [facility] Address [address] [place] [address] Care Team Providers Name Role Phone Unavailable Primary Care Provider Unavailable Encounter Details Date Type Department Care Team Description 11/20/2019 Treatment [facility] O Ernie Gómez MD [address] [place] [address] [place], [place] [phone] (Wo rk) Social History Tobacco Use Types Packs/Day Years Used Date Smoking Tobacco: Unknown Comments: Smoking History Info:Patient n ot screened Sex Assigned at Date Recorded Not on file documented as of this encounter Miscellaneous Notes Dialysis Note - Ernie Pompa MD - 11/20/2019 11:34 AM CDT Date: Nov 20, 2019 Patient Name: Shaun Ocampo : 1945 Chart #: [id number] Sex: M This patient was personally seen [...] AM ) BP (sit): 126/49 AP(-) / FUNERAL COUNSELOR: 230/186 Pulse: 64 Chairside data as of [...] 08/23/2019 Access Flow 1011 1591 > [address]: Ernie Pompa MD LOCATION: [place] [phone] SCHEDULE: -W- 2nd Shift EDW: kg. DIALYZER: [...] prescription. Vascular Access Assessment Type of access: Dlyqtms80/2019 Surgeon - Lary GARDNER Access working well [...] above goal. Intact PTH is below goal. Art Specialist will adjust binders and vitamin D [...]
--- OUTSIDE RECORDS SUMMARY | 2022-01-04 06:47 | XMS_ITS | Encounter Summary ---
:1945 Author Organization [facility] Address [address] [place] [address] Care Team Providers Name Role Phone Unavailable Primary Care Provider Unavailable Encounter Details Date Type Department Care Team Description 10/28/2019 Orders [facility] O f Ernie Guzmán MD [address] [place] [address] [place], [place] [phone] (Wo rk) Social History Tobacco Use [...] spKt/V 1.70 KAMERON (Daugirdas II) nPCR_HD 0.84 AKMERON Specimen (Source) Anatomical Location Collection Method / [...] [facility] Phon e Number APS SPECTRA [facility] POST CHEMISTRY (10/28/2019) P athologist Signature BUN Post 13 6 - 19 APS SPECTRA Dialysis mg/dL [facility] Specimen (Source) Anatomical Collection Method Collection Time Re ceived Time Location / / Volume Laterality 10/28/2019 10/31/2019 3:11 PM CDT Narrative APS SPECTRA [facility] - 10/31/2019 Unless otherwise specified, test(s) performed at: [facility], [address] [place] [address] CASE ASSEMBLER: Alec Payan M.D. For any questions, please call customer service at FREQUENCY:OTHER Resulting Agency Comment Specimen source: Plasma Ernie Pompa MD LAB BLOOD ORDERABLES Performing Organization Address [facility] Phon e Number APS SPECTRA [facility] (ABNORMAL) Spectrae Chemistry (10/28/2019) P athologist Signature BUN 54 (H) 6 - 19 APS SPECTRA mg/dL [facility] Specimen (Source) Anatomical Collection Method Collection Time Re ceived Time Location / / Volume Laterality 10/28/2019 10/29/2019 4:43 PM CDT Narrative APS SPECTRA [facility] - 10/29/2019 Unless otherwise specified, test(s) performed at: [facility], [address] [place] [address] CASE ASSEMBLER: Alec Payan M.D. For any questions, please call customer service at FREQUENCY:OTHER Resulting Agency Comment Specimen source: Serum Ernie Pompa MD LAB BLOOD ORDERABLES Performing Organization Address [facility] Phon e Number APS SPECTRA [facility] documented in this encounter Visit Diagnoses Not on filedocumented in this encounter
--- OUTSIDE RECORDS SUMMARY | 2022-01-04 06:47 | XMS_ITS | Encounter Summary ---
:1945 Author Organization [facility] Address [address] [place] [address] Care Team Providers Name Role Phone Unavailable Primary Care Provider Unavailable Encounter Details Date Type Department Care Team Description 10/02/2019 Orders Only [facility] O f Ernie Guzmán MD [address] [place] [address] [place], [place] [phone] (Wo rk) Social History Tobacco Use [...] in this encounter Results (ABNORMAL) HEMATOLOGY (10/02/2019) [facility] gist Method Time Signature Neutrophils 74.2 40.0 [...] 10/03/2019 Unless otherwise specified, test(s) performed at: [facility], [address] [place] [address] PHOTO COLORER: Alec Payan M.D. For any questions, please call customer service at FREQUENCY:OTHER Resulting Agency Comment Specimen source: Blood Ernie Pompa MD LAB BLOOD ORDERABLES Performing Organization Address City/State/ZIP Code Phon e Number APS SPECTRA [facility] documented in this encounter Visit Diagnoses Not on filedocumented in this encounter
--- OUTSIDE RECORDS SUMMARY | 2022-01-04 06:47 | XMS_ITS | Encounter Summary ---
:1945 Author Organization [facility] Address [address] [place] [address] Care Team Providers Name Role Phone Unavailable Primary Care Provider Unavailable Encounter Details Date Type Department Care Team Description 12/04/2019 Orders [facility] O f Ernie Guzmán MD [address] [place] [address] [place], [place] [phone] (Wo rk) Social History Tobacco Use [...] 12/05/2019 Unless otherwise specified, test(s) performed at: [facility], [address] [place] [address] COLOR MAKING SUPERVISOR: Alec Payan M.D. For any questions, please call customer service at FREQUENCY:OTHER Resulting Agency Comment Specimen source: Serum Erine Pompa MD LAB BLOOD ORDERABLES Performing [...] 12/05/2019 Unless otherwise specified, test(s) performed at: [facility], [address] [place] [address] COLOR MAKING SUPERVISOR: Alec Payan M.D. For any questions, please call customer service at FREQUENCY:OTHER Resulting Agency Comment Specimen source: Blood Ernie Pompa MD LAB BLOOD ORDERABLES Performing Organization Address City/[facility] Code Phon e Number APS SPECTRA [facility] documented in this encounter Visit Diagnoses Not on filedocumented in this encounter
--- OUTSIDE RECORDS SUMMARY | 2022-01-04 06:47 | XMS_ITS | Encounter Summary ---
:1945 Author Organization [facility] Address [address] [place] [address] Care Team Providers Name Role Phone Unavailable Primary Care Provider Unavailable Encounter Details Date Type Department Care Team Description 12/25/2019 Orders [facility] O f Ernie Guzmán MD [address] [place] [address] [place], [place] [phone] (Wo rk) Social History Tobacco Use [...] 12/27/2019 Unless otherwise specified, test(s) performed at: [facility], [address] [place] [address] PEDIATRIC SPEECH THERAPIST: Alec Payan M.D. For any questions, please call customer service at FREQUENCY:MONTHLY Resulting Agency Comment Specimen source: Plasma Ernie Pompa MD LAB BLOOD ORDERABLES Performing Organization Address City/[facility] Phon e Number APS SPECTRA [facility] IMMUNO CHEMISTRY (12/25/2019) P athologist Signature Hep B Surface Negative Negative APS SPECTRA Ag [facility] Specimen (Source) Anatomical Collection Method Collection Time Re ceived Time Location / / Volume Laterality 12/25/2019 12/26/2019 5:50 PM CDT Narrative APS SPECTRA [facility] - 12/27/2019 Unless otherwise specified, test(s) performed at: [facility], [address] [place] [address] PEDIATRIC SPEECH THERAPIST: Alec Payan M.D. For any questions, please call customer service at FREQUENCY:MONTHLY Resulting Agency Comment Specimen source: Serum Ernie Pompa MD LAB BLOOD ORDERABLES Performing Organization Address [facility] Phon e [...] 12/27/2019 Unless otherwise specified, test(s) performed at: [facility], [address] [place] [address] PEDIATRIC SPEECH THERAPIST: Alec Payan M.D. For any questions, please call customer service at FREQUENCY:MONTHLY Resulting Agency Comment Specimen source: Plasma Ernie Pompa MD LAB BLOOD ORDERABLES Performing Organization Address City/[facility] Phon e [...] 12/27/2019 Unless otherwise specified, test(s) performed at: [facility], [address] [place] [address] PEDIATRIC SPEECH THERAPIST: Alec Payan M.D. For any questions, [...] 12/27/2019 Unless otherwise specified, test(s) performed at: [facility], [address] [place] [address] PEDIATRIC SPEECH THERAPIST: Alec Payan M.D. For any questions, please call customer service at FREQUENCY:MONTHLY Resulting Agency Comment Specimen source: Blood Ernie Pompa MD LAB BLOOD ORDERABLES Performing Organization Address City/[facility]/ZIP Code Phon e Number APS SPECTRA [facility] documented in this encounter Visit Diagnoses Not on filedocumented in this encounter
--- OUTSIDE RECORDS SUMMARY | 2022-01-04 06:47 | XMS_ITS | Encounter Summary ---
:1945 Author Organization [facility] Address [address] [place] [address] Care Team Providers Name Role Phone Unavailable Primary Care Provider Unavailable Encounter Details Date Type Department Care Team Description 09/25/2019 Orders [facility] O f Ernie Guzmán MD [address] [place] [address] [place], [place] [phone] (Wo rk) Social History Tobacco Use [...] in this encounter Results (ABNORMAL) HEMATOLOGY (09/25/2019) [facility] gist Method Time Signature Neutrophils 74.2 [...] 09/26/2019 Unless otherwise specified, test(s) performed at: [facility] [address] [place], [place] [id number] OIL AND GAS SUPERINTENDENT: Alec Payan M.D. For any questions, please call customer service at FREQUENCY:OTHER Resulting Agency Comment Specimen source: Blood Ernie Pompa MD LAB BLOOD ORDERABLES Performing Organization Address City/State/ZIP Code Phon e Number APS SPECTRA [facility] documented in this encounter Visit Diagnoses Not on filedocumented in this encounter
--- OUTSIDE RECORDS SUMMARY | 2022-01-04 06:48 | XMS_ITS | Encounter Summary ---
:1945 Author Organization [facility] Address [address] [place] [address] Care Team Providers Name Role Phone Unavailable Primary Care Provider Unavailable Encounter Details Date Type Department Care Team Description 07/10/2019 Orders [facility] O f Ernie Guzmán MD [address] [place] [address] [place], [place] [phone] (Wo rk) Social History Tobacco Use [...] 07/11/2019 Unless otherwise specified, test(s) performed at: [facility], [address] [place] [address] LIVESTOCK BROKER: Alec Payan M.D. For any questions, please call customer service at FREQUENCY:OTHER Resulting Agency Comment Specimen source: Blood Ernie Pompa MD LAB BLOOD ORDERABLES Performing Organization Address City/State/ZIP Code Phon e Number APS SPECTRA [facility] documented in this encounter Visit Diagnoses Not on filedocumented in this encounter
--- OUTSIDE RECORDS SUMMARY | 2022-01-04 06:48 | XMS_ITS | Encounter Summary ---
:1945 Author Organization [facility] Address [address] [place] [address] Care Team Providers Name Role Phone Unavailable Primary Care Provider Unavailable Encounter Details Date Type Department Care Team Description 06/26/2019 Treatment [facility] O f Ernie Guzmán MD [address] [place] [address] [place], [place] [address] [phone] (Wo rk) Social History Tobacco Use Types Packs/Day Years Used Date Smoking Tobacco: Unknown Comments: Smoking History Info:Patient n ot screened Sex Assigned at Date Recorded Not on file documented as of this encounter Miscellaneous Notes Dialysis Note - Ernie Pompa MD - 06/26/2019 12:47 PM CDT Date: Jun 26, 2019 Patient Name: Shaun Ocampo : 1945 Chart #: [id number] Sex: M This patient was personally seen [...] PM ) BP (sit): 146/80 AP(-) / ORAL SURGERY PHYSICIAN: 248/209 Pulse: 79 Chairside data as of [...] 4:0 Actual Treatment Time 04:03 04:02 04:01 OUTPATIENT THERAPIST: Ernie Pompa MD LOCATION: [place] [phone] SCHEDULE: -W- 2nd Shift EDW: kg. DIALYZER: [...] this. Vascular Access Assessment Type of access: Mojtvgg65/2019 Surgeon - Lary GARDNER Advanced needles to [...] at goal. Intact PTH is at goal. Rickshaw Driver will adjust binders and vitamin D [...]
--- OUTSIDE RECORDS SUMMARY | 2022-01-04 06:48 | XMS_ITS | Encounter Summary ---
:1945 Author Organization [facility] Address [address] [place] [address] Care Team Providers Name Role Phone Unavailable Primary Care Provider Unavailable Encounter Details Date Type Department Care Team Description 07/03/2019 Orders Only [facility] f Ernie Guzmán MD [phone] [place] [address] [place], [place] [phone] (Wo rk) Social History Tobacco Use [...] Provider LAB BLOOD ORDERABLES Performing Organization Address [facility] Phon e Number KAMERON IMMUNO CHEMISTRY (07/03/2019) P athologist Signature Hep B Surface Negative Negative APS SPECTRA Ag [facility] Specimen (Source) Anatomical Collection Method Collection Time Re ceived Time Location / / Volume Laterality 07/03/2019 07/04/2019 8:19 PM CDT Narrative APS SPECTRA [facility] - 07/05/2019 Unless otherwise specified, test(s) performed at: [facility], [address] [place] [address] POULTRY CLEANER: Alec Payan M.D. For any questions, please call customer service at FREQUENCY:OTHER Resulting Agency Comment Specimen source: Serum Ernie Pompa MD LAB BLOOD ORDERABLES Performing Organization Address [facility] Phon e Number APS SPECTRA [facility] HD KINETICS (07/03/2019) P athologist Signature % Urea 71 65 - 80 % APS SPECTRA Reduction [facility] Specimen (Source) Anatomical Collection Method Collection Time Re ceived Time Location / / Volume Laterality 07/03/2019 07/04/2019 8:19 PM CDT Narrative APS SPECTRA [facility] - 07/05/2019 Unless otherwise specified, test(s) performed at: [facility], [address] [place] [address] POULTRY CLEANER: Alec Payan M.D. For any questions, please call customer service at FREQUENCY:OTHER Resulting Agency Comment Specimen source: Serum Ernie Pompa MD LAB BLOOD ORDERABLES Performing Organization Address City/[facility] Phon e Number APS SPECTRA [facility] (ABNORMAL) Spectrae Chemistry (07/03/2019) P athologist Signature BUN 35 (H) 6 - 19 APS SPECTRA mg/dL [facility] Specimen (Source) Anatomical Collection Method Collection Time Re ceived Time Location / / Volume Laterality 07/03/2019 07/04/2019 8:19 PM CDT Narrative APS SPECTRA [facility] - 07/05/2019 Unless otherwise specified, test(s) performed at: [facility], [address] [place] [address] POULTRY CLEANER: Alec Payan M.D. For any questions, please call customer service at FREQUENCY:OTHER Resulting Agency Comment Specimen source: Serum Ernie Pompa MD LAB BLOOD ORDERABLES Performing Organization Address City/[facility] Phon e Number APS SPECTRA [facility] POST CHEMISTRY (07/03/2019) P athologist Signature BUN Post 10 6 - 19 APS SPECTRA Dialysis mg/dL [facility] Specimen (Source) Anatomical Collection Method Collection Time Re ceived Time Location / / Volume Laterality 07/03/2019 07/04/2019 5:30 PM CDT Narrative APS SPECTRA [facility] - 07/04/2019 Unless otherwise specified, test(s) performed at: [facility], [address] [place] [address] POULTRY CLEANER: Alec Payan M.D. For any questions, please call customer service at FREQUENCY:OTHER Resulting Agency Comment Specimen source: Plasma Ernie Pompa MD LAB BLOOD ORDERABLES Performing Organization Address [facility] Phon e Number APS [...] 07/04/2019 Unless otherwise specified, test(s) performed at: [facility], [address] [place] [address] POULTRY CLEANER: Alec Payan M.D. For any questions, please call customer service at FREQUENCY:OTHER Resulting Agency Comment Specimen source: Blood Ernie Pompa MD LAB BLOOD ORDERABLES Performing Organization Address City/[facility] Phon e Number APS SPECTRA [facility] documented in this encounter Visit Diagnoses Not on filedocumented in this encounter
--- OUTSIDE RECORDS SUMMARY | 2022-01-04 06:48 | XMS_ITS | Encounter Summary ---
:1945 Author Organization [facility] Address [address] [place] [address] Care Team Providers Name Role Phone Unavailable Primary Care Provider Unavailable Encounter Details Date Type Department Care Team Description 06/26/2019 Orders Only [facility] O f Ernie Guzmán MD [phone] [place] [address] [place], [place] [phone] (Wo rk) Social History Tobacco Use [...] 06/27/2019 Unless otherwise specified, test(s) performed at: [facility], [address] [place] [address] SEWING MACHINES SALESPERSON: Alec Payan M.D. For any questions, please call customer service at FREQUENCY:OTHER Resulting Agency Comment Specimen source: Blood Ernie Pompa MD LAB BLOOD ORDERABLES Performing Organization Address City/State/ZIP Code Phon e Number APS SPECTRA [facility] documented in this encounter Visit Diagnoses Not on filedocumented in this encounter
--- OUTSIDE RECORDS SUMMARY | 2022-01-04 06:48 | XMS_ITS | Encounter Summary ---
:1945 Author Organization [facility] Address [address] [place] [address] Care Team Providers Name Role Phone Unavailable Primary Care Provider Unavailable Encounter Details Date Type Department Care Team Description 08/28/2019 Treatment [facility] O Ernie Gómez MD [address] [place] [address] [place], [place] [phone] (Wo rk) Social History Tobacco Use Types Packs/Day Years Used Date Smoking Tobacco: Unknown Comments: Smoking History Info:Patient n ot screened Sex Assigned at Date Recorded Not on file documented as of this encounter Miscellaneous Notes Dialysis Note - Ernie Pompa MD - 08/28/2019 12:51 PM CDT Date: Aug 28, 2019 Patient Name: Shaun Ocampo : 1945 Chart #: [id number] Sex: M This patient was personally seen [...] PM ) BP (sit): 147/58 AP(-) / CIGARETTE FILTER INSPECTOR: 198/168 Pulse: 65 Chairside data as of [...] IVP Every Treatment During Dialysis 08/26/2019 09/16/2019 MANAGER INTEL: Ernie Pompa MD LOCATION: [phone] SCHEDULE: -- 2nd Shift EDW: kg. DIALYZER: [...] prescription. Vascular Access Assessment Type of access: Qfjktin12/2019 Surgeon - Lary GARDNER Access working well [...] at goal. Intact PTH is below goal. Shell Reprint Operator will adjust binders and vitamin D [...]
--- OUTSIDE RECORDS SUMMARY | 2022-01-04 06:48 | XMS_ITS | Encounter Summary ---
:1945 Author Organization [facility] Address [address] [place] [address] Care Team Providers Name Role Phone Unavailable Primary Care Provider Unavailable Encounter Details Date Type Department Care Team Description 08/14/2019 Orders Only [facility] O f Ernie Guzmán MD [phone] [place] [address] [place], [place] [phone] (Wo rk) Social History Tobacco Use [...] 08/16/2019 Unless otherwise specified, test(s) performed at: [facility], [address] [place] [address] CLINICAL PHYSICIAN ASSISTANT: Alec Payan M.D. For any questions, please call customer service at FREQUENCY:OTHER Resulting Agency Comment Specimen source: Blood Ernie Pompa MD LAB BLOOD ORDERABLES Performing Organization Address City/State/ZIP Code Phon e Number APS SPECTRA [facility] documented in this encounter Visit Diagnoses Not on filedocumented in this encounter
--- OUTSIDE RECORDS SUMMARY | 2022-01-04 06:48 | XMS_ITS | Encounter Summary ---
:1945 Author Organization [facility] Address [address] [place] [address] Care Team Providers Name Role Phone Unavailable Primary Care Provider Unavailable Encounter Details Date Type Department Care Team Description 06/05/2019 Treatment [facility] f Ernie Guzmán MD [address] [place] [address] [place], [place] [phone] (Wo rk) Social History Tobacco Use Types Packs/Day Years Used Date Smoking Tobacco: Unknown Comments: Smoking History Info:Patient n ot screened Sex Assigned at Date Recorded Not on file documented as of this encounter Miscellaneous Notes Dialysis Note - Ernie Pompa MD - 06/05/2019 5:14 PM CDT Date: Jun 05, 2019 Patient Name: Shaun Ocampo : 1945 Chart #: [id number] Sex: M This patient was personally seen for a basic visit as part of routine weekly dialysis care. A reviewof the dialysis treatment, blood pressure, estimated dry weight and recent lab values was made. These were discussed with the patient and staff as necessary. BILL CHECKER: Ernie Pompa MD LOCATION: [phone] SCHEDULE: M-W-F 2nd Shift ACCESS: EDW: kg. [...] (05/01/19) Vascular Access Assessment: Type of access: [id number]/2019 Surgeon - Lary KUMARW Advanced needles to [...]
--- OUTSIDE RECORDS SUMMARY | 2022-01-04 06:48 | XMS_ITS | Encounter Summary ---
:1945 Author Organization [facility] Address [address] [place] [address] Care Team Providers Name Role Phone Unavailable Primary Care Provider Unavailable Encounter Details Date Type Department Care Team Description 05/22/2019 Treatment [facility] Ernie Gómez MD [address] [place] [address] [place], [place] [phone] (Wo rk) Social History Tobacco Use Types Packs/Day Years Used Date Smoking Tobacco: Unknown Comments: Smoking History Info:Patient n ot screened Sex Assigned at Date Recorded Not on file documented as of this encounter Miscellaneous Notes Dialysis Note - Ernie Pompa MD - 05/22/2019 12:28 PM CST Date: May 22, 2019 Patient Name: Shaun Ocampo : 1945 Chart #: [id number] Sex: M This patient was personally seen [...] AM ) BP (sit): n/a AP(-) / BULLDOZER OPERATOR: 231/165 Pulse: n/a Chairside data as [...] 4:0 Actual Treatment Time 04:04 04:01 04:04 PLANNING MANAGER: Ernie Pompa MD LOCATION: [place] [phone] SCHEDULE: -- 2nd Shift EDW: kg. DIALYZER: [...] tablet Take 1 tablet once a day [place] Saline (sodium chloride) 0.65% drops calcitriol 0.25 [...] 800 Vascular Access Assessment Type of access: Updojxy63/2019 Surgeon - Lary GARDNER Advancing needles to [...] at goal. Intact PTH is at goal. Drop Board Man will adjust binders and vitamin D per [...]
--- OUTSIDE RECORDS SUMMARY | 2022-01-04 06:48 | XMS_ITS | Encounter Summary ---
:1945 Author Organization [facility] Address [address] [place] [address] Care Team Providers Name Role Phone Unavailable Primary Care Provider Unavailable Encounter Details Date Type Department Care Team Description 05/10/2019 Orders Only [facility] O f Ernie Guzmán MD [phone] [place] [address] [place], [place] [phone] (Wo rk) Social History Tobacco Use [...] / Volume Laterality 05/10/2019 05/11/2019 9:28 AM MACHINE OPERATORS Narrative APS SPECTRA [facility] - 05/11/2019 Unless otherwise specified, test(s) performed at: [facility], [address] [place] [address] GAS STOVE SERVICER HELPER: Tawanna green M.D. For any questions, please call customer service at FREQUENCY:OTHER Resulting Agency Comment Specimen source: Blood Ernei Pompa MD LAB BLOOD ORDERABLES Performing Organization Address City/State/ZIP Code Phon e Number APS SPECTRA [facility] documented in this encounter Visit Diagnoses Not on filedocumented in this encounter
--- OUTSIDE RECORDS SUMMARY | 2022-01-04 06:48 | XMS_ITS | Encounter Summary ---
:1945 Author Organization [facility] Address [address] [place] [address] Care Team Providers Name Role Phone Unavailable Primary Care Provider Unavailable Encounter Details Date Type Department Care Team Description 06/05/2019 Orders [facility] O f Ernie Guzmán MD [address] [place] [address] [place], [place] [phone] (Wo rk) Social History Tobacco Use [...] 06/06/2019 Unless otherwise specified, test(s) performed at: [facility], [address] [place] [address] SERVICE CLEANER: Tawanna green M.D. For any questions, please call customer service at FREQUENCY:OTHER Resulting Agency Comment Specimen source: Blood Ernie Pompa MD LAB BLOOD ORDERABLES Performing Organization Address City/State/ZIP Code Phon e Number APS SPECTRA [facility] documented in this encounter Visit Diagnoses Not on filedocumented in this encounter
--- OUTSIDE RECORDS SUMMARY | 2022-01-04 06:48 | XMS_ITS | Encounter Summary ---
:1945 Author Organization [facility] Address [address] [place] [address] Care Team Providers Name Role Phone Unavailable Primary Care Provider Unavailable Encounter Details Date Type Department Care Team Description 05/29/2019 Orders Only [facility] O f Ernie Guzmán MD [address] [place] [address] [place], [place] [phone] (Wo rk) Social History Tobacco Use [...] BLOOD ORDERABLES Performing Organization Address City/[facility]/ZIP [facility] Phon e Number KAMERON (ABNORMAL) HD KINETICS (05/29/2019) P athologist Signature % Urea 64 (L) 65 - 80 % APS SPECTRA Reduction [facility] Specimen (Source) Anatomical Collection Method Collection Time Re ceived Time Location / / Volume Laterality 05/29/2019 05/30/2019 6:23 PM CDT Narrative APS SPECTRA [facility] - 05/30/2019 Unless otherwise specified, test(s) performed at: [facility], [address] [place] [address] DYE REEL OPERATOR: Tawanna green M.D. For any questions, please call customer service at FREQUENCY:OTHER Resulting Agency Comment Specimen source: Serum Ernie Pompa MD LAB BLOOD ORDERABLES Performing Organization Address City/[facility] Phon e [...] 05/30/2019 Unless otherwise specified, test(s) performed at: [facility], [address] [place] [address] DYE REEL OPERATOR: Tawanna green M.D. For any questions, please call customer service at FREQUENCY:OTHER Resulting Agency Comment Specimen source: Serum Ernie Pompa MD LAB BLOOD ORDERABLES Performing Organization Address City/[facility]/ZIP [facility] Phon e Number APS SPECTRA [facility] POST CHEMISTRY (05/29/2019) P athologist Signature BUN Post 10 6 - 19 APS SPECTRA Dialysis mg/dL [facility] Specimen (Source) Anatomical Collection Method Collection Time Re ceived Time Location / / Volume Laterality 05/29/2019 05/30/2019 9:58 AM CDT Narrative APS SPECTRA [facility] - 05/30/2019 Unless otherwise specified, test(s) performed at: [facility], [address] [place], [place] [id number] DYE REEL OPERATOR: Tawanna green M.D. For any questions, please call customer service at FREQUENCY:OTHER Resulting Agency Comment Specimen source: Plasma Ernie Pompa MD LAB BLOOD ORDERABLES Performing Organization Address City/[facility] Phon e [...] 05/30/2019 Unless otherwise specified, test(s) performed at: [facility], [address] [place], [place] [id number] DYE REEL OPERATOR: Tawanna green M.D. For any questions, please call customer service at FREQUENCY:OTHER Resulting Agency Comment Specimen source: Blood Ernie Pompa MD LAB BLOOD ORDERABLES Performing Organization Address City/[facility] Phon e Number APS SPECTRA [facility] documented in this encounter Visit Diagnoses Not on filedocumented in this encounter
--- OUTSIDE RECORDS SUMMARY | 2022-01-04 06:48 | XMS_ITS | Encounter Summary ---
:1945 Author Organization [facility] Address [address] [place] [address] Care Team Providers Name Role Phone Unavailable Primary Care Provider Unavailable Encounter Details Date Type Department Care Team Description 08/07/2019 Treatment [facility] f Ernie Guzmán MD [address] [place] [address] [place], [place] [phone] (Wo rk) Social History Tobacco Use Types Packs/Day Years Used Date Smoking Tobacco: Unknown Comments: Smoking History Info:Patient n ot screened Sex Assigned at Date Recorded Not on file documented as of this encounter Miscellaneous Notes Dialysis Note - Ernie Pompa MD - 08/07/2019 5:40 PM CDT Date: August 07, 2019 Patient Name: Shaun Ocampo : 1945 Chart #: [id number] Sex: M This patient was personally seen for a complete visit as part of routine monthly dialysis care. A review of the dialysis treatment, blood pressure, estimated dry weight and recent lab values was made. These were discussed with the patient and staff as necessary. VP AD SALES WEST: Ernie Pompa MD LOCATION: [phone] SCHEDULE: M-W-F 2nd Shift EDW: kg. DIALYZER: [...] adequacy Vascular Access Assessment Type of access: [id number]/2019 Surgeon - Lary GARDNER Access working well [...] at goal. Intact PTH is below goal. Licensed Funeral Director will adjust binders and vitamin D [...]
--- OUTSIDE RECORDS SUMMARY | 2022-01-04 06:48 | XMS_ITS | Encounter Summary ---
:1945 Author Organization [facility] Address [address] [place] [address] Care Team Providers Name Role Phone Unavailable Primary Care Provider Unavailable Encounter Details Date Type Department Care Team Description 05/15/2019 Treatment [facility] O Ernie Gómez MD [address] [place] [address] [place], [place] [phone] (Wo rk) Social History Tobacco Use Types Packs/Day Years Used Date Smoking Tobacco: Unknown Comments: Smoking History Info:Patient n ot screened Sex Assigned at Date Recorded Not on file documented as of this encounter Miscellaneous Notes Dialysis Note - Ernie Pompa MD - 05/15/2019 12:58 PM CST Date: May 15, 2019 Patient Name: Shaun Ocampo : 1945 Chart #: [id number] Sex: M This patient was personally seen [...] AM ) BP (sit): 148/53 AP(-) / PHLEBOTOMY TECHNICIAN: 216/194 Pulse: 62 Chairside data as of [...] 4:0 4:0 Actual Treatment Time 04:01 04:03 VENEER DRIER: Ernie Pompa MD LOCATION: [phone] SCHEDULE: -- 2nd Shift EDW: kg. DIALYZER: [...] tablet Take 1 tablet once a day [place] Saline (sodium chloride) 0.65% drops calcitriol 0.25 [...] away) Vascular Access Assessment Type of access: [id number]/2019 Lary GARDNER Anemia Assessment HEMOGLOBIN (G/DL) IN [...] at goal. Intact PTH is at goal. Material Analyst will adjust binders and vitamin D [...] Name: Shaun Ocampo : 1945 Chart #: [id number] Sex: M Patient Type: ESRD Modality: Hemodialysis Machine Puller: Ernie Pompa MD Location: [phone] Schedule: -W- 2nd Shift Initial Access Date [...]
--- OUTSIDE RECORDS SUMMARY | 2022-01-04 06:48 | XMS_ITS | Encounter Summary ---
:1945 Author Organization [facility] Address [address] [place] [address] Care Team Providers Name Role Phone Unavailable Primary Care Provider Unavailable Encounter Details Date Type Department Care Team Description 05/15/2019 [facility] O f Ernie Guzmán MD [address] [place] [address] [place], [place] [phone] (Wo rk) Social History Tobacco Use Types Packs/Day Years Used Date Smoking Tobacco: Unknown Comments: Smoking History Info:Patient n ot screened Sex Assigned at Date Recorded Not on file documented as of this encounter Plan of Treatment Not on filedocumented as of this encounter Procedures Procedure Name Priority Date/Time Associated Comments Diagnosis POST CHEMISTRY Routine 05/15/2019 2:24 PM Results for this TUBE MACHINE OPERATOR HELPER procedure are i n the results section. HD KINETICS Routine 05/15/2019 10:08 AM Results for this TUBE MACHINE OPERATOR HELPER procedure are i n the results section. HEMATOLOGY Routine 05/15/2019 10:08 AM Results for this TUBE MACHINE OPERATOR HELPER procedure are i n the results section. CHEMISTRY Routine 05/15/2019 10:08 AM Results for this TUBE MACHINE OPERATOR HELPER procedure are i n the results section. SPECTRA [facility] Routine 05/15/2019 Results for t his RESULTS procedure are i n the results section. documented in this encounter Results POST CHEMISTRY (05/15/2019 2:24 PM TUBE MACHINE OPERATOR HELPER) P athologist Signature BUN Post APS SPECTRA Dialysis mg/dL [facility] Specimen Anatomical Collection Method Collection Time Receive d Time (Source) Location / / Volume Laterality 05/15/2019 2:24 PM 0 9:40 TUBE MACHINE OPERATOR HELPER AM TUBE MACHINE OPERATOR HELPER Narrative APS SPECTRA [facility] - 05/15/2019 2:[address] Unless otherwise specified, test(s) performed at: [facility], [address] [place] [address] GRAIN MANAGER: Tawanna green M.D. For any questions, please call customer service at FREQUENCY:OTHER Resulting Agency Comment Specimen source: Plasma Ernie Pompa MD LAB BLOOD ORDERABLES Performing Organization Address [facility] Phon e Number APS SPECTRA [facility] (ABNORMAL) HD KINETICS (05/15/2019 10:08 AM TUBE MACHINE OPERATOR HELPER) P athologist Signature % Urea 62 (L) 65 - 80 % APS SPECTRA Reduction [facility] Specimen Anatomical Collection Method Collection Time Receive d Time (Source) Location / / Volume Laterality 05/15/2019 10:08 05/16/2019 AM TUBE MACHINE OPERATOR HELPER 10:07 AM TUBE MACHINE OPERATOR HELPER Narrative APS SPECTRA [facility] - 05/15/2019 10:08 AM TUBE MACHINE OPERATOR HELPER Unless otherwise specified, test(s) performed at: [facility], [address] [place], [place] [phone] GRAIN MANAGER: Tawanna green M.D. For any questions, please call customer service at FREQUENCY:OTHER Resulting Agency Comment Specimen source: Serum Ernie Pompa MD LAB BLOOD ORDERABLES Performing Organization Address [facility] Phon e Number APS SPECTRA [facility] (ABNORMAL) Spectrae Chemistry (05/15/2019 10:08 AM TUBE MACHINE OPERATOR HELPER) P athologist Signature BUN 29 (H) 6 - 19 APS SPECTRA mg/dL [facility] Specimen Anatomical Collection Method Collection Time Receive d Time (Source) Location / / Volume Laterality 05/15/2019 10:08 05/16/2019 AM TUBE MACHINE OPERATOR HELPER 10:07 AM TUBE MACHINE OPERATOR HELPER Narrative APS SPECTRA [facility] - 05/15/2019 10:08 AM TUBE MACHINE OPERATOR HELPER Unless otherwise specified, test(s) performed at: [facility], [address] [place], [place] [phone] GRAIN MANAGER: Tawanna green M.D. For any questions, please call customer service at FREQUENCY:OTHER Resulting Agency Comment Specimen source: Serum Ernie Pompa MD LAB BLOOD ORDERABLES Performing Organization Address City/[facility] Phon e Number APS SPECTRA [facility] (ABNORMAL) HEMATOLOGY (05/15/2019 10:08 AM TUBE MACHINE OPERATOR HELPER) Analysis Performed At Patho logist Time Signature Hemoglobin 8.2 (L) 14.0 - APS SPECTRA 18.0 g/dL [facility] Hemoglobin x 3 24.6 (L) 42.0 - APS SPECTRA 54.0 % [facility] Specimen Anatomical Collection Method Collection Time Receive d Time (Source) Location / / Volume Laterality 05/15/2019 10:08 05/16/2019 AM TUBE MACHINE OPERATOR HELPER 10:48 AM TUBE MACHINE OPERATOR HELPER Narrative APS SPECTRA [facility] - 05/15/2019 10:08 AM TUBE MACHINE OPERATOR HELPER Unless otherwise specified, test(s) performed at: [facility], [address] [place] [address] GRAIN MANAGER: Tawanna green M.D. For any questions, please call customer service at FREQUENCY:OTHER Resulting Agency Comment Specimen source: Blood Ernie Pompa MD LAB BLOOD ORDERABLES Performing Organization Address City/[facility] [...]
--- OUTSIDE RECORDS SUMMARY | 2022-01-04 06:48 | XMS_ITS | Encounter Summary ---
:1945 Author Organization [facility] Address [address] [place] [address] Care Team Providers Name Role Phone Unavailable Primary Care Provider Unavailable Encounter Details Date Type Department Care Team Description 07/31/2019 [facility] Only [facility] O f Ernie Guzmán MD [phone] [place] [address] [place], [place] [phone] (Wo rk) Social History Tobacco Use [...] 08/01/2019 Unless otherwise specified, test(s) performed at: [facility], [address] [place] [address] ONLINE EDITOR: Alec Payan M.D. For any questions, please call customer service at FREQUENCY:OTHER Resulting Agency Comment Specimen source: Blood Ernie Pompa MD LAB BLOOD ORDERABLES Performing Organization Address City/State/ZIP Code Phon e Number APS SPECTRA [facility] documented in this encounter Visit Diagnoses Not on filedocumented in this encounter
--- OUTSIDE RECORDS SUMMARY | 2022-01-04 06:48 | XMS_ITS | Encounter Summary ---
:1945 Author Organization [facility] Address [address] [place] [address] Care Team Providers Name Role Phone Unavailable Primary Care Provider Unavailable Encounter Details Date Type Department Care Team Description 06/12/2019 [facility] Only [facility] O f Ernie Guzmán MD [address] [place] [address] [place], [place] [phone] (Wo rk) Social History Tobacco Use [...] 06/13/2019 Unless otherwise specified, test(s) performed at: [facility], [address] [place] [address] HEADING MACHINE OPERATOR: Tawanna green M.D. For any questions, please call customer service at FREQUENCY:OTHER Resulting Agency Comment Specimen source: Blood Ernie Pompa MD LAB BLOOD ORDERABLES Performing Organization Address City/State/ZIP Code Phon e Number APS SPECTRA [facility] documented in this encounter Visit Diagnoses Not on filedocumented in this encounter
--- OUTSIDE RECORDS SUMMARY | 2022-01-04 06:48 | XMS_ITS | Encounter Summary ---
:1945 Author Organization [facility] Address [address] [place] [address] Care Team Providers Name Role Phone Unavailable Primary Care Provider Unavailable Encounter Details Date Type Department Care Team Description 09/04/2019 [facility] Only [facility] O f Ernie Guzmán MD [phone] [place] [address] [place], [place] [phone] (Wo rk) Social History Tobacco Use [...] 09/05/2019 Unless otherwise specified, test(s) performed at: [facility], [address] [place] [address] DEPUTY JUVENILE OFFICER: Alec Payan M.D. For any questions, please call customer service at FREQUENCY:OTHER Resulting Agency Comment Specimen source: Blood Ernie Pompa MD LAB BLOOD ORDERABLES Performing Organization Address City/State/ZIP Code Phon e Number APS SPECTRA [facility] documented in this encounter Visit Diagnoses Not on filedocumented in this encounter
--- OUTSIDE RECORDS SUMMARY | 2022-01-04 06:48 | XMS_ITS | Encounter Summary ---
:1945 Author Organization [facility] Address [address] [place] [address] Care Team Providers Name Role Phone Unavailable Primary Care Provider Unavailable Encounter Details Date Type Department Care Team Description 08/07/2019 [facility] Only [facility] O f Ernie Guzmán MD [phone] [place] [address] [place], [place] [phone] (Wo rk) Social History Tobacco Use [...] 08/08/2019 Unless otherwise specified, test(s) performed at: [facility], [address] [place] [address] RESTAURANT KITCHEN MANAGER: Alec Payan M.D. For any questions, please call customer service at FREQUENCY:OTHER Resulting Agency Comment Specimen source: Blood Ernie Pompa MD LAB BLOOD ORDERABLES Performing Organization Address City/State/ZIP Code Phon e Number APS SPECTRA [facility] documented in this encounter Visit Diagnoses Not on filedocumented in this encounter
--- OUTSIDE RECORDS SUMMARY | 2022-01-04 06:48 | XMS_ITS | Encounter Summary ---
:1945 Author Organization [facility] Address [address] [place] [address] Care Team Providers Name Role Phone Unavailable Primary Care Provider Unavailable Encounter Details Date Type Department Care Team Description 06/19/2019 [facility] Only [facility] O f Ernie Guzmán MD [phone] [place] [address] [place], [place] [phone] (Wo rk) Social History Tobacco Use [...] 06/21/2019 Unless otherwise specified, test(s) performed at: [facility], [address] [place] [address] SHOE SINGER: Alec Payan M.D. For any questions, please [...] 06/21/2019 Unless otherwise specified, test(s) performed at: [facility], [address] [place] [address] SHOE SINGER: Alec Payan M.D. For any questions, please call customer service at FREQUENCY:MONTHLY Resulting Agency Comment Specimen source: Serum Ernie Pompa MD LAB BLOOD ORDERABLES Performing Organization Address [facility] Phon e Number APS SPECTRA [facility] (ABNORMAL) Spectrae Chemistry (06/19/2019) P athologist Signature PTH 199 (H) 16 - 80 APS SPECTRA pg/mL [facility] Specimen (Source) Anatomical Collection Method Collection Time Re ceived Time Location / / Volume Laterality 06/19/2019 06/20/2019 3:50 PM CDT Resulting Agency Comment Specimen source: Plasma Ernie Pompa MD LAB BLOOD ORDERABLES Performing Organization Address City/[facility] [[email or web address] Code Phon e Number APS SPECTRA [facility] [...] 06/21/2019 Unless otherwise specified, test(s) performed at: [facility], [address] [place] [address] SHOE SINGER: Alec Payan M.D. For any questions, please call customer service at FREQUENCY:MONTHLY Resulting Agency Comment Specimen source: Blood Ernie Pompa MD LAB BLOOD ORDERABLES Performing Organization Address City/[facility] Phon e Number APS SPECTRA [facility] POST CHEMISTRY (06/19/2019) P athologist Signature BUN Post 13 6 - 19 APS SPECTRA Dialysis mg/dL [facility] Specimen (Source) Anatomical Collection Method Collection Time Re ceived Time Location / / Volume Laterality 06/19/2019 06/20/2019 5:07 PM CDT Narrative APS SPECTRA [facility] - 06/20/2019 Unless otherwise specified, test(s) performed at: [facility], [address] [place] [address] SHOE SINGER: Alec Payan M.D. For any questions, please call customer service at FREQUENCY:MONTHLY Resulting Agency Comment Specimen source: Plasma Enrie Pompa MD LAB BLOOD ORDERABLES Performing Organization Address City/[facility] Phon e Number APS SPECTRA [facility] documented in this encounter Visit Diagnoses Not on filedocumented in this encounter
--- OUTSIDE RECORDS SUMMARY | 2022-01-04 06:48 | XMS_ITS | Encounter Summary ---
:1945 Author Organization [facility] Address [address] [place] [address] Care Team Providers Name Role Phone Unavailable Primary Care Provider Unavailable Encounter Details Date Type Department Care Team Description 07/17/2019 [facility] Only [facility] O f Ernie Guzmán MD [address] [place] [address] [place], [place] [phone] (Wo rk) Social History Tobacco Use [...] 07/18/2019 Unless otherwise specified, test(s) performed at: [facility], [address] [place] [address] GROUP CONTROLLER: Alec Payan M.D. For any questions, please call customer service at FREQUENCY:OTHER Resulting Agency Comment Specimen source: Blood Ernie Pompa MD LAB BLOOD ORDERABLES Performing Organization Address City/State/ZIP Code Phon e Number APS SPECTRA [facility] documented in this encounter Visit Diagnoses Not on filedocumented in this encounter
--- OUTSIDE RECORDS SUMMARY | 2022-01-04 06:48 | XMS_ITS | Encounter Summary ---
:1945 Author Organization [facility] Address [address] [place] [address] Care Team Providers Name Role Phone Unavailable Primary Care Provider Unavailable Encounter Details Date Type Department Care Team Description 05/01/2019 [facility] Only [facility] O f Ernie Guzmán MD [address] [place] [address] [place], [place] [phone] (Wo rk) Social History Tobacco Use [...] above test result was obtained using Siemens [employer] ([employer])aur XP chemiluminescent method. Results obtaine d with different assay methods or kits cannot be used interchangeably. Specimen (Source) Anatomical Collection Method Collection Time Re ceived Time Location / / Volume Laterality 05/01/2019 05/02/2019 3:03 PM SENIOR CISCO NETWORK ENGINEER Resulting Agency Comment Specimen source: Serum [...] / Volume Laterality 05/01/2019 05/02/2019 3:03 PM SENIOR CISCO NETWORK ENGINEER Narrative APS SPECTRA [facility] - 05/03/2019 Unless otherwise specified, test(s) performed at: [facility], [address] [place], [place] [id number] LICENSED CLINICAL PSYCHOLOGIST: Tawanna green M.D. For any questions, please call customer service at FREQUENCY:MONTHLY Resulting Agency Comment Specimen source: Serum Ernie Pompa MD LAB BLOOD BANK TEST ORDERABL ES Performing Organization Address City/[facility] Phon e Number APS SPECTRA [facility] (ABNORMAL) Spectrae Chemistry (05/01/2019) P athologist Signature PTH 351 (H) 16 - 80 APS SPECTRA pg/mL [facility] Specimen (Source) Anatomical Collection Method Collection Time Re ceived Time Location / / Volume Laterality 05/01/2019 05/02/2019 8:20 PM SENIOR CISCO NETWORK ENGINEER Narrative APS SPECTRA [facility] - 05/03/2019 Unless otherwise specified, test(s) performed at: [facility], [address] [place], [place] [phone] LICENSED CLINICAL PSYCHOLOGIST: Tawanna green M.D. For any questions, please call customer service at FREQUENCY:MONTHLY Resulting Agency Comment Specimen source: Plasma Ernie Pompa MD LAB BLOOD ORDERABLES Performing Organization Address City/State/[facility] Phon e Number [...] / Volume Laterality 05/01/2019 05/02/2019 8:20 PM SENIOR CISCO NETWORK ENGINEER Narrative APS SPECTRA [facility] - 05/03/2019 Unless otherwise specified, test(s) performed at: [facility], [address] [place] [address] LICENSED CLINICAL PSYCHOLOGIST: Tawanna green M.D. For any questions, please call customer service at FREQUENCY:MONTHLY Resulting Agency Comment Specimen source: Blood Ernie Pompa MD LAB BLOOD ORDERABLES Performing Organization Address City/[facility] Phon e Number APS SPECTRA [facility] TRACE ELEMENTS (05/01/2019) P athologist Signature Aluminum <5 0 - 10 APS SPECTRA mcg/L [facility] Comment: This test was developed and its performa nce characteristics determined by [facility]. It has not been cleared or approved by the FDA. The laboratory is regulated under CLIA a s qualified to perform high complexity testing. This test is used fo r clinical purposes. It should not be regarded as investigational or fo r research. Specimen (Source) Anatomical Collection Method Collection Time Re ceived Time Location / / Volume Laterality 05/01/2019 05/02/2019 4:05 PM SENIOR CISCO NETWORK ENGINEER Narrative APS SPECTRA [facility] - 05/02/2019 Unless otherwise specified, test(s) performed at: [facility], [address] [place] [address] LICENSED CLINICAL PSYCHOLOGIST: Tawanna green M.D. For any questions, please call customer service at FREQUENCY:MONTHLY Resulting Agency Comment Specimen source: Serum Ernie Pompa MD LAB BLOOD ORDERABLES Performing Organization Address City/[facility] Phon e Number APS SPECTRA [facility] (ABNORMAL) HD KINETICS (05/01/2019) P athologist Signature % Urea 96 (H) 65 - 80 % APS SPECTRA Reduction [facility] Specimen (Source) Anatomical Collection Method Collection Time Re ceived Time Location / / Volume Laterality 05/01/2019 05/02/2019 3:04 PM SENIOR CISCO NETWORK ENGINEER Narrative APS SPECTRA [facility] - 05/02/2019 Unless otherwise specified, test(s) performed at: [facility], [address] [phone] LICENSED CLINICAL PSYCHOLOGIST: Tawanna green M.D. For any questions, please call customer service at FREQUENCY:MONTHLY Resulting Agency Comment Specimen source: Serum Ernie Pompa MD LAB BLOOD ORDERABLES Performing Organization Address City/State/ZIP Code Phon e Number APS SPECTRA [facility] (ABNORMAL) Spectrae Chemistry (05/01/2019) [facility] gist Method Time Signature BUN 68 [...] / Volume Laterality 05/01/2019 05/02/2019 3:03 PM SENIOR CISCO NETWORK ENGINEER Narrative APS SPECTRA [facility] - 05/03/2019 Unless otherwise specified, test(s) performed at: [facility], [address] [place] [address] LICENSED CLINICAL PSYCHOLOGIST: Tawanna green M.D. For any questions, please call customer service at FREQUENCY:MONTHLY Resulting Agency Comment Specimen source: Serum Ernie oPmpa MD LAB BLOOD ORDERABLES Performing Organization Address City/[facility]/ZIP Code Phon e Number APS SPECTRA [facility] (ABNORMAL) POST CHEMISTRY (05/01/2019) P athologist Signature BUN Post 3 (L) 6 - 19 APS SPECTRA Dialysis mg/dL [facility] Specimen (Source) Anatomical Collection Method Collection Time Re ceived Time Location / / Volume Laterality 05/01/2019 05/02/2019 12:5 1 PM SENIOR CISCO NETWORK ENGINEER Narrative APS SPECTRA [facility] - 05/02/2019 Unless otherwise specified, test(s) performed at: [facility], [address] [place] [address] LICENSED CLINICAL PSYCHOLOGIST: Tawanna green M.D. For any questions, please call customer service at FREQUENCY:MONTHLY Resulting Agency Comment Specimen source: Plasma Ernie Pompa MD LAB BLOOD ORDERABLES Performing Organization Address City/State/ZIP [facility] Phon e Number APS SPECTRA [facility] documented in this encounter Visit Diagnoses Not on filedocumented in this encounter
--- OUTSIDE RECORDS SUMMARY | 2022-01-04 06:48 | XMS_ITS | Encounter Summary ---
:1945 Author Organization [facility] Address [address] [place] [address] Care Team Providers Name Role Phone Unavailable Primary Care Provider Unavailable Encounter Details Date Type Department Care Team Description 07/24/2019 [facility] Only [facility] O f Ernie Guzmán MD [address] [place] [address] [place], [place] [phone] (Wo rk) Social History Tobacco Use [...] Provider LAB BLOOD ORDERABLES Performing Organization Address [facility] Phon e Number [facility] (ABNORMAL) Spectrae Chemistry (07/24/2019) P athologist Signature PTH 164 (H) 16 - 80 APS SPECTRA pg/mL [facility] Specimen (Source) Anatomical Collection Method Collection Time Re ceived Time Location / / Volume Laterality 07/24/2019 07/25/2019 6:44 PM CDT Narrative APS SPECTRA [facility] - 07/26/2019 Unless otherwise specified, test(s) performed at: [facility], [address] [place] [address] ROENTGENOLOGIST: Alec Payan M.D. For any questions, please call customer service at FREQUENCY:MONTHLY Resulting Agency Comment Specimen source: Plasma Ernie Pompa MD LAB BLOOD ORDERABLES Performing Organization Address [facility] Phon e Number APS SPECTRA [facility] HD KINETICS (07/24/2019) P athologist Signature % Urea 69 65 - 80 % APS SPECTRA Reduction [facility] Specimen (Source) Anatomical Collection Method Collection Time Re ceived Time Location / / Volume Laterality 07/24/2019 07/25/2019 7:05 PM CDT Narrative APS SPECTRA [facility] - 07/26/2019 Unless otherwise specified, test(s) performed at: [facility], [address] [place] [address] ROENTGENOLOGIST: Alec Payan M.D. For any questions, please call customer service at FREQUENCY:MONTHLY Resulting Agency Comment Specimen source: Plasma Ernie Pompa MD LAB BLOOD ORDERABLES Performing Organization Address [facility] Phon e Number [...] 07/26/2019 Unless otherwise specified, test(s) performed at: [facility], [address] [place] [address] ROENTGENOLOGIST: Alec Payan M.D. For any questions, please [...] 07/25/2019 Unless otherwise specified, test(s) performed at: [facility], [address] [place], [place] [phone] ROENTGENOLOGIST: Alec Payan M.D. For any questions, please call customer service at FREQUENCY:MONTHLY Resulting Agency Comment Specimen source: Plasma Ernie Pompa MD LAB BLOOD ORDERABLES Performing Organization Address City/[facility] Phon e Number [...] 07/25/2019 Unless otherwise specified, test(s) performed at: [facility], [address] [place], [place] [phone] ROENTGENOLOGIST: Alec Payan M.D. For any questions, please call customer service at FREQUENCY:MONTHLY Resulting Agency Comment Specimen source: Blood Ernie Pompa MD LAB BLOOD ORDERABLES Performing Organization Address City/State/ZIP Code Phon e Number APS SPECTRA [facility] documented in this encounter Visit Diagnoses Not on filedocumented in this encounter
--- OUTSIDE RECORDS SUMMARY | 2022-01-04 06:48 | XMS_ITS | Encounter Summary ---
:1945 Author Organization [facility] Address [address] [place] [address] Care Team Providers Name Role Phone Unavailable Primary Care Provider Unavailable Encounter Details Date Type Department Care Team Description 07/29/2019 [facility] Only [facility] O f Ernie Guzmán MD [address] [place] [address] [place], [place] [phone] (Wo rk) Social History Tobacco Use [...] 07/30/2019 Unless otherwise specified, test(s) performed at: [facility], [address] [place] [address] LATH HAND: Alec Payan M.D. For any questions, please call customer service at FREQUENCY:OTHER Resulting Agency Comment Specimen source: Serum Ernie Pompa MD LAB BLOOD ORDERABLES Performing Organization Address City/State/ZIP Code Phon e Number APS SPECTRA [facility] documented in this encounter Visit Diagnoses Not on filedocumented in this encounter
--- OUTSIDE RECORDS SUMMARY | 2022-01-04 06:48 | XMS_ITS | Encounter Summary ---
:1945 Author Organization [facility] Address [address] [place] [address] Care Team Providers Name Role Phone Unavailable Primary Care Provider Unavailable Encounter Details Date Type Department Care Team Description 08/28/2019 Orders Only [facility] f Ernie Guzmán MD [phone] [place] [address] [place], [place] [phone] (Wo rk) Social History Tobacco Use [...] 08/29/2019 Unless otherwise specified, test(s) performed at: [facility], [address] [place] [id number] COOLING MACHINE OPERATOR: Alec Payan M.D. For any questions, please call customer service at FREQUENCY:OTHER Resulting Agency Comment Specimen source: Blood Ernie Pompa MD LAB BLOOD ORDERABLES Performing Organization Address City/State/ZIP Code Phon e Number [facility] documented in this encounter Visit Diagnoses Not on filedocumented in this encounter
--- OUTSIDE RECORDS SUMMARY | 2022-01-04 06:48 | XMS_ITS | Encounter Summary ---
:1945 Author Organization [facility] Address [address] [place] [address] Care Team Providers Name Role Phone Unavailable Primary Care Provider Unavailable Encounter Details Date Type Department Care Team Description 05/22/2019 [facility] O f Ernie Guzmán MD [phone] [place] [address] [place], [place] [phone] (Wo rk) Social History Tobacco Use [...] Volume Laterality 05/22/2019 05/23/2019 10:5 1 PM RERECORDING MIXER Resulting Agency Comment Specimen source: Plasma Ernie Pompa MD LAB BLOOD ORDERABLES Performing Organization Address City/State/ZIP Code Phon e Number [facility] POST CHEMISTRY (05/22/2019) athologist Signature BUN Post 13 6 - 19 [facility] Dialysis mg/dL [facility] Specimen (Source) Anatomical Collection Method Collection Time Re ceived Time Location / / Volume Laterality 05/22/2019 05/23/2019 10:5 1 PM RERECORDING MIXER Narrative [facility] - 05/24/2019 Unless otherwise specified, test(s) performed at: [facility], [address] [place] [address] AUTOCAD OPERATOR: Tawanna green M.D. For any questions, please call customer service at FREQUENCY:MONTHLY Resulting Agency Comment Specimen source: Plasma Ernie Pompa MD LAB BLOOD ORDERABLES Performing Organization Address City/[facility]/ZIP Code Phon e Number [facility] (ABNORMAL) [facility]rae Chemistry (05/22/2019) [facility] Signature BUN 30 (H) [...] Volume Laterality 05/22/2019 05/23/2019 11:2 0 AM RERECORDING MIXER Narrative [facility] - 05/23/2019 Unless otherwise specified, test(s) performed at: [facility], [address] [place] [address] AUTOCAD OPERATOR: Tawanna green M.D. For any questions, [...] Volume Laterality 05/22/2019 05/23/2019 12:4 6 PM RERECORDING MIXER Narrative [facility] - 05/23/2019 Unless otherwise specified, test(s) performed at: [facility], [address] [place] [address] AUTOCAD OPERATOR: Tawanna green M.D. For any questions, please call customer service at FREQUENCY:MONTHLY Resulting Agency Comment Specimen source: Blood Ernie Pompa MD LAB BLOOD ORDERABLES Performing Organization Address City/State/ZIP Code Phon e Number [facility] documented in this encounter Visit Diagnoses Not on filedocumented in this encounter
--- OUTSIDE RECORDS SUMMARY | 2022-01-04 06:48 | XMS_ITS | Encounter Summary ---
:1945 Author Organization [facility] Address [address] [place] [address] Care Team Providers Name Role Phone Unavailable Primary Care Provider Unavailable Encounter Details Date Type Department Care Team Description 08/21/2019 Orders [facility] O f Ernie Guzmán MD [phone] [place] [address] [place], [place] [phone] (Wo rk) Social History Tobacco Use [...] 08/23/2019 Unless otherwise specified, test(s) performed at: [facility], [address] [place], [place] [id number] BILINGUAL MANAGER: Alec Payan M.D. For any questions, please call customer service at FREQUENCY:MONTHLY Resulting Agency Comment Specimen source: Serum Ernie Pompa MD LAB BLOOD ORDERABLES Performing Organization Address City/[facility]/ZIP Code Phon e Number [facility] HD KINETICS (08/21/2019) P athologist Signature % Urea 75 65 - 80 % [facility] Reduction [facility] Specimen (Source) Anatomical Collection Method Collection Time Re ceived Time Location / / Volume Laterality 08/21/2019 08/22/2019 9:07 PM CDT Resulting Agency Comment Specimen source: Plasma Ernie Pompa MD LAB BLOOD ORDERABLES Performing Organization Address City/[facility]/ZIP Code Phon e Number [facility] POST CHEMISTRY (08/21/2019) P athologist Signature BUN Post 10 6 - 19 [facility] Dialysis mg/dL [facility] Specimen (Source) Anatomical Collection Method Collection Time Re ceived Time Location / / Volume Laterality 08/21/2019 08/22/2019 9:06 PM CDT Narrative [facility] - 08/23/2019 Unless otherwise specified, test(s) performed at: [facility], [address] [place] [address] BILINGUAL MANAGER: Alec Payan M.D. For any questions, please call customer service at FREQUENCY:MONTHLY Resulting Agency Comment Specimen source: Plasma Ernie Pompa MD LAB BLOOD ORDERABLES Performing Organization Address City/State/ZIP Code Phon e Number [facility] (ABNORMAL) Spectrae Chemistry (08/21/2019) [facility] Method Time Signature BUN 40 (H) [...] 08/23/2019 Unless otherwise specified, test(s) performed at: [facility], [address] [place] [address] BILINGUAL MANAGER: Alec Payan M.D. For any questions, [...] 08/22/2019 Unless otherwise specified, test(s) performed at: [facility], [address] [place] [address] BILINGUAL MANAGER: Alec Payan M.D. For any questions, please call customer service at FREQUENCY:MONTHLY Resulting Agency Comment Specimen source: Blood Ernie Pompa MD LAB BLOOD ORDERABLES Performing Organization Address City/State/ZIP Code Phon e Number [facility] documented in this encounter Visit Diagnoses Not on filedocumented in this encounter
--- OUTSIDE RECORDS SUMMARY | 2022-01-04 06:48 | XMS_ITS | Encounter Summary ---
:1945 Author Organization [facility] Address [address] [place] [address] Care Team Providers Name Role Phone Unavailable Primary Care Provider Unavailable Encounter Details Date Type Department Care Team Description 07/10/2019 Treatment [facility] O Ernie Gómez MD [address] [place] [address] [place], [place] [phone] (Wo rk) Social History Tobacco Use Types Packs/Day Years Used Date Smoking Tobacco: Unknown Comments: Smoking History Info:Patient n ot screened Sex Assigned at Date Recorded Not on file documented as of this encounter Miscellaneous Notes Dialysis Note - Ernie Pompa MD - 07/10/2019 11:42 AM CDT Date: Jul 10, 2019 Patient Name: Shaun Ocampo : 1945 Chart #: [id number] Sex: M This patient was personally seen [...] AM ) BP (sit): 136/58 AP(-) / QUANTOMETER OPERATOR: n/a Pulse: 76 Chairside data as of [...] 4:0 Actual Treatment Time 04:04 04:02 04:04 CASH OFFICE WORKER: Ernie Pompa MD LOCATION: [place] [phone] SCHEDULE: M-W- 2nd Shift ACCESS: EDW: kg. [...] (05/01/19) Vascular Access Assessment: Type of access: [id number] Surgeon - Lary GARDNER Advanced needles to [...]
--- OUTSIDE RECORDS SUMMARY | 2022-01-04 06:49 | XMS_ITS | Clinical Summary ---
:1945 Author Organization [facility] [place] [address] Care Team Providers Name Role Phone Liban Leos MD Primary Care Provider [phone] Allergies Active Allergy Reactions Severity Noted Date [...] Dispensed Refills Start Date End Date Status allopurinoL Take 1 tablet 90 Tablet 1 12/29/2021 Act joe (ZYLOPRIM) 100 mg by mouth once tabletIndications daily. : Essential hypertension metoprolol Take 1/2 tablet 45 Tablet 1 12/29/2021 Ac tive succinate (TOPROL by mouth daily. XL) 25 mg Sustained-Release tabletIndications : Essential hypertension atorvastatin Take 1 tablet 90 Tablet 1 12/29/2021 Ac tive (LIPITOR) 20 mg by mouth daily. tabletIndications : Type 2 diabetes mellitus with stage 5 chronic kidney disease not on chronic dialysis, without long-term current use of insulin (HC) b complex-vitamin Take 1 capsule 90 Capsule 3 12/29/2021 Active c-folic acid 1 mg by mouth daily. (Triphrocaps) 1 mg capsuleIndication s: Stage 4 chronic kidney disease (HC) oxygen-air Oxygen for home 1 Device 0 03/12/2019 Wallace spended delivery systems use. Liters per (HOME minute: 1-2 per OXYGEN)Indication nasal cannula s: Pulmonary HTN Continuous with (HC) portability. Length of need: 3 Months. durable medical Farrow wraps, 1 Each 0 06/17/2019 12/28/19 Discontinued equipment right leg 22 (Medicatio n (DME)Indications: [id number],circ therapy change Lymphedema [id number], per hospital left leg protocol [id number] (E-c ancel not [id number] sent)) diagnosislymphe demaI89.0 MICROLET TEST DAILY 100 Each 3 07/25/2019 12/28/19 Disconti nued LANCETIndications 22 (P harmacist : Type 2 diabetes ch nakul per mellitus with medica tion stage 5 chronic hist ory kidney disease (E-ca ncel not not on chronic sent) ) dialysis, without long-term current use of insulin (HC) lidocaine-priloca APPLY SMALL 0 03/30/2020 Suspended ine (EMLA) AMOUNT TO 2.5-2.5 % cream ACCESS SITE (AVF) 1 TO 2 HOURS BEFORE DIALYSIS. COVER WITH OCCLUSIVE DRESSING (SARAN WRAP) sevelamer Uses at 0 04/29/2020 12/28/19 Discontin ued carbonate dialysis 22 (Reorder (RENVELA) 800 mg (E- cancel not tab tablet sent)) medication order Calcitriol Mon, 0 0 Discontinued composer Mon, and 22 (Pharmacis t Fridays on change pe r dialysis days medica tion history (E-cancel not sent)) amoxicillin 4 capsules oral 4 Capsule 3 07/23/2020 S uspended (AMOXIL) 500 mg one hour before capsuleIndication procedure. s: Need for SBE (subacute bacterial endocarditis) prophylaxis Contour Next Test TEST ONCE DAILY 100 Each 3 04/03/2021 Suspended Strips stripIndications: Type 2 diabetes mellitus with stage 5 chronic kidney disease not on chronic dialysis, without long-term current use of insulin (HC) albuterol-ipratro Inhale 3 mL via 180 mL 3 07/04/2021 Suspended pium (DUONEB) a nebulizer (2.5-0.5 mg) in 3 every 6 hours mL NEBULIZATION if needed for solutionIndicatio Shortness of ns: Bronchospasm Breath 1st choice. fluticasone Inhale 2 Puffs 36 g 3 07/04/2021 Wallace spended propion-salmetero by mouth every L (ADVAIR) 115-21 12 hours. mcg/actuation inhalerIndication s: Bronchospasm pantoprazole Take 1 Tablet 90 Tablet 3 10/15/2021 Wallace spended (PROTONIX) 40 mg (40 mg) by delayed-release mouth once tabletIndications daily before a : Chronic GERD meal. metoprolol Take 1/2 tablet 15 Tablet 0 11/30/2021 12/30/19 Di scontinued succinate (TOPROL by mouth daily. 22 XL) 25 mg Sustained-Release tabletIndications : Essential hypertension allopurinoL Take 1 tablet 30 Tablet 0 11/30/2021 12/30/19 Dis continued (ZYLOPRIM) 100 mg by mouth once 22 tabletIndications daily. : Essential hypertension atorvastatin Take 1 tablet 30 Tablet 0 11/30/2021 12/30/19 Di scontinued (LIPITOR) 20 mg by mouth daily. 22 tabletIndications : Type 2 diabetes mellitus with stage 5 chronic kidney disease not on chronic dialysis, without long-term current use of insulin (HC) b complex-vitamin Take 1 capsule 30 Capsule 0 11/30/202112/29 Discontinued c-folic acid 1 mg by mouth daily. 22 (Triphrocaps) 1 mg capsuleIndication s: Stage 4 chronic kidney disease (HC) fluticasone (50 Instill 1 spray 48 mL 3 12/03/2021 Suspended mcg per in each nostril actuation) nasal once daily. solution (FLONASE)Indicati ons: Allergic rhinitis due to pollen, unspecified seasonality albuterol HFA Inhale 2 Puffs 0 S uspended (PRO-AIR; by mouth every VENTOLIN; 4 hours if PROVENTIL) 90 needed for mcg/actuation Shortness Of inhaler Breath. guaiFENesin Take 1,200 mg 0 Susp ended (MUCINEX) 600 mg by mouth two Extended-Release times daily. tablet sevelamer Take 800 mg by 0 Suspe nded carbonate mouth three (RENVELA) 800 mg times daily tab tablet with meals. Active Problems Problem Noted Date RSV (respiratory syncytial virus infection) 12/30/2021 ESRD (end stage renal disease) on dialysis 12/30/2021 Pneumonia due to infectious organism 12/27/2021 Depression, recurrent 10/15/2021 Primary osteoarthritis of knees, [...] atherosclerosis of unspecified type of vessel , soboba or graft 04/04/2007 Overview: Angiogram/PCI 04/04/07: LAD: [...] Type 2 diabetes mellitus with circulatory disorder, [facility] long-term 02/18/2002 current use of insulin Osteoarthrosis, [...] deficiency anemia, unspecified 08/13/200806/20 Overview: Admitted to [facility] 08/12/08 with Hgb 5.6, ferritin 5. Negative colonoscopy. 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 Reportedly negative outpatient capsule study. Chest pain, unspecified 07/17/2020 AORTIC VALVE DISORDER: Moderate to severe 07/17/2020 Overview: -Echo 03/29/07: Mild concentric LVH with normal wall motion. EF 55-60%. Marked KIERAN. Mod . CLAUS 1.3 cm sq. Mean gradient 24 mmHg. Mild MS, TI. Mild pulmonary hypertension. RVSP 39 mmHg +RAP. -S/P AVR 09/03/2008 Acute CHF 07/26/2010 Overview: -Mar 2007 admission to [facility] End stage renal disease 07/17/2020 Mitral stenosis 07/17/2020 Overview: Moderate to severe by echo 02/2019 Encounters Date Type Specialty Care Team Description 12/28/2021 Refill Liban Leos Refill Requ est MD Lizzie (Allopurinol, M etoprolol Succinate, Ator vastatin, ) 12/27/2021 Hospital Encounter [facility] (Primary Dx); MD PATTERSON (shortness of breath); Residents, Icu Atrial fibrillation with RVR (HC); Sam Barreto MD Cardiovascular symptoms Juju Barth MD Patel, NIC Kraus, MD Rachana Morejon, Dayne Parmar MD 12/27/2021 Travel 12/22/2021 Orders Only Scanner <No scans attac hed> 12/08/2021 Office Visit Liban Leos Follow Up; MD Lizzie Immunization/In jection 12/08/2021 Travel 12/01/2021 Refill Liban Leos Refill Requ est MD Lizzie (Fluticasone (5 0 Mcg Per Actuation) Nasa l) 11/30/2021 Orders Only Lab, [facility] 11/30/2021 Travel 11/28/2021 Refill Liban Leos Refill Requ est (Metoprolol MD Lizzie Succinate, Allo purinol, Atorvastatin, ) 10/15/2021 Office Visit Liban Leos [facility] F/ U (Lelandlissette Samuel MD [facility], 10/09/19 22 - 10/11/2021, mala jung ) 10/15/2021 Travel 10/08/2021 Orders Only Scanner <No scans attac hed> from Last 3 Months Immunizations Name Administration Dates Next Due AMB INFLUENZA IIV3 (AGE 65+ YRS) PF 12/28/2018 (Flu Clinic Only) COVID-19 vaccine (Moderna 05/11/2020, 04/17/2020 100mcg/0.5mL) PF, MDV COVID-19 vaccine ([employer] 10/15/2021 30mcg/0.3mL) 12YO+ THOMAS-SUCROSE PF, MDV Influenza, [...] 10 days, have you been in contact No / Unsure 12/27/2021 12:06 AM CDT with someone who was confirmed or suspected to have Coronavirus/COVID-19? Obstetrics History Last Filed Vital Signs Vital Sign Reading Time Taken Comments Blood Pressure 98/52 01/04/2022 12:00 AM CDT Pulse 76 01/04/2022 12:00 AM CDT Temperature 36.5 ??C (97.7 ??F) 01/04/2022 12:00 AM CDT Respiratory Rate 20 01/04/2022 12:00 AM CDT Oxygen Saturation 95% 01/04/2022 12:00 AM CDT Inhaled Oxygen Concentration - - Weight 99.3 kg (218 lb 14.7 oz) 12/31/2021 7:05 PM CDT Height 177.8 cm (5' 10) 12/27/2021 3:16 AM CDT Body Mass Index 31.41 12/27/2021 3:16 AM CDT Plan of Treatment Upcoming Encounters Date Type Specialty Care Team Description 01/28/2022 Office Visit [facility], [facility] [employer] 06/07/2022 Orders Only Lab, [facility] 06/14/2022 Office Visit Liban Leos MD [address] [place] [id number] (Wo rk) Health Maintenance Due Date Last Done Comments Zoster (shingles) series for age 0508/05/1964 50+ (1 of 2) Colonoscopy through age 75 08/18/2018 08/18/2008 Tetanus booster 08/29/2018 08/29/2008, 03/20/1997 COVID-19 vaccine series (4 - 12/10/2021 10/15/2021, 021, Booster for Moderna series) 04/17/2020 BMI (ht and wt on same day) for 12/15/2021 12/15/2020, 11/19, age 18+ 05/03/2019, Additional history exists Medicare Wellness for age 65+ 12/15/2021 12/15/2020, 2011 Depression screening for age 12+ 12/16/2021 12/16/2020, , 12/18/2019, Additional history exists Lipids for age 45-75 01/03/2027 01/03/2022, 11/30/2021, 12/08/2020, Additional history exists Tdap Completed 08/29/2008 Pneumococcal series for age 65+ Completed 12/09/2015, 06/06/2014, 10/07/2008 Hepatitis C screening for age Completed 11/30/2021 18-79 Influenza for age 65+ Completed 12/08/2021, 12/04/2019, 12/28/2018, Additional history exists Medical Devices Implanted Type Area Import/Export Freight Forwarder Device Shelf Model / Identifier Expiration Serial / Date Lot Anw Hh [id number] Cv Implants N/A: [place] 07/13/2010 30 [id number] / Implanted: Qty: 1 on 09/03/2008 at [facility] Aortic [employer] [id number] / Explanted: at [facility] (Quantity not on file) Valve Jaclyn Procedures The patient is currently admitted. The information in this section might not be complete until the patient is discharged. Procedure Name Priority Date/Time Associated Comments Diagnosis XR ORTHOPANTOGRAM Routine 01/03/2022 6:10 PM Resu lts for this CDT procedure are i n the results section. GLUCOSE METER Timed 01/03/2022 12:21 Results fo r this PM CDT procedure are i n the results section. LIPID PANEL GLORY 01/03/2022 9:48 AM Results f or this CDT procedure are i n the results section. PLATELET COUNT Timed 01/03/2022 9:48 AM Results for this CDT procedure are i n the results section. TROPONIN I Early AM 01/03/2022 9:48 AM Results f or this CDT procedure are i n the results section. GLUCOSE METER Timed 01/03/2022 7:50 AM Results for this CDT procedure are i n the results section. GLUCOSE METER Timed 01/02/2022 10:11 Results fo r this AM CDT procedure are i n the results section. TROPONIN I Early AM 01/02/2022 7:34 AM Results f or this CDT procedure are i n the results section. GLUCOSE METER Timed 01/02/2022 4:04 AM Results for this CDT procedure are i n the results section. GLUCOSE METER Timed 01/01/2022 10:07 Results fo r this PM CDT procedure are i n the results section. GLUCOSE METER Timed 01/01/2022 4:41 PM Results for this CDT procedure are i n the results section. GLUCOSE METER Timed 01/01/2022 10:04 Results fo r this AM CDT procedure are i n the results section. TROPONIN I Early AM 01/01/2022 7:14 AM Results f or this CDT procedure are i n the results section. GLUCOSE METER Timed 01/01/2022 4:23 AM Results for this CDT procedure are i n the results section. GLUCOSE METER Timed 12/31/2021 10:03 Results fo r this PM CDT procedure are i n the results section. CTA CHEST ABD PELVIS Routine 12/31/2021 2:05 PM TAVR - DUAL READ CDT Procedure Note - Boone Gomez MD / José Mccray MD / Rg Villa MD - 12/31/2021 2:05 PM CDTThis note is in progress. Formatting of this note is d ifferent from the original. Results are automatically re leased to your [employer]) account once available, in compliance with federal regulations. This means that you may see your results before your provider has had a chance to review them. Please allow 2-3 busin ess days for your provider to comment on the results. STUDY: CARDIAC MORPHOLOGY CT A, CHEST, ABDOMEN AND PELVIC CTA, 12/31/2021 The patient breathed through out the scan but the results are reliable. INDICATION: To assess valve- in-valve options. History of a #25 Magna aortic valve replacement with elevated gradient. STUDY PARAMETERS: Contrast u sed: Omnipaque 350, 120 mL; sequential, spiral, and FLASH scan; 2958 DLP. Siemens SOMATOM Force [address] SCAN QUALITY: Good. FINDINGS: AORTIC VALVE: There is heavy calcification in all leaflets of the #25 mm Magna bioprosthetic valve. Placing a virtual #29 Evolut valve within the Magna valve resulted in a 4.5 mm distance to the left main ostium. There was a 4 mm distance to the right coronary ostium. Using 1-1-1 orientation, the angle for deployment is JORDANA 3 cranial 4. Using a 1-2 (left main view) JORDANA 34 cranial 21 degrees. Extracellular volume elevate d at 36%. MEASUREMENTS FOR POSSIBLE TA VR ILIO-FEMORAL SYSTEM RIGHT LE FT Common iliac artery 12.3 x 7 .9 mm 11.4 x 8.3 mm External iliac artery 10.5 x 8.4 mm 10 x 7.4 mm Common femoral artery 9.4 x 7.3 mm 11 x 8.8 mm CORONARY ARTERIES: There is extensive coronary calcification. The patient was breathing. Assessment of the coronary arteries is not fully adequate on the coronary CT angiogram. IMPRESSION: 1. Intermediate risk for cor onary obstruction with the distance to the left main from the virtual valve of 4.5 mm and 4 mm to the right coronary artery. 2. Extensive coronary calcif ication, cannot fully assess the coronary arteries on CTA. 3. Elevated extracellular vo lume but not in the range of amyloidosis - 36%. 4. Either right or low trans femoral access is adequate for a bxhln-zq-qfvey procedure. 5. Degenerative #29 Magna ao rtic valve with heavy calcification. MD KAMILAH Odom/santiago For Patients: As a result of the Century Cures Act, medical imaging exams and procedure reports are released immediately into your electronic medical record. You may view this report before your referring provider. If you have questions, pleas e contact your health care provider. OVER-READ OVER-READ OVER-RE AD OVER-READ: DETAILED RADIOLOG Y EXTRACARDIAC OVER-READ OF CARDIAC CT 12/31/2021 COMPARISON: Abdomen/pelvis C T 05/13/2020. TECHNIQUE: CTA chest/abdomen /pelvis. Please see cardiology report for technical information. 120 cc of Omnipaque-350 IV. This exam is being performed in conjunction with the services provided by the [facility] ([facility]). CLINICAL HISTORY: Please see cardiology section of report. FINDINGS: Please see separat e portion of report for cardiac and vascular findings. Mediastinum: Status post med jeannine sternotomy. No pericardial effusion. Normal esophagus. No mediastinal adenopathy. Lungs: Central airways paten t. No effusion or pneumothorax. 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 Dependent opacities in lung bases bilaterally likely atelectasis. No pulmonary nodules. Other chest: No axillary or supraclavicular adenopathy. Visualized portions of thyroid normal. Arterial phase imaging limit s evaluation of the solid abdominal organs. Liver: No imaging evidence o f cirrhosis. 9 mm arterially enhancing lesion in segment 2 likely flash filling hemangioma. Gallbladder: Status post cho lecystectomy. Spleen: Normal. Pancreas: Normal. Adrenal glands: Normal. Kidneys: Bilateral renal atr ophy, similar to 2020. No hydronephrosis no mass. Bowel: No obstruction or ile us. No wall thickening. Moderate ascites. No pneumoperitoneum. Diverticulosis. Lymph nodes: No lymphadenopa thy by CT size criteria. Pelvis: Urinary bladder deco mpressed but otherwise unremarkable. Prostate size within normal limits. Bones: No acute or aggressiv e appearing osseous lesions. IMPRESSION: 1. Please see separate porti on of report for cardiac and vascular findings. 2. Pleural calcifications co nsistent with prior asbestos exposure. 3. Small volume ascites. 4. Bilateral pulmonary opaci ties likely atelectasis. 5. Diverticulosis. Please note that all CT scan s at this facility use dose modulation, iterative reconstruction, and/or weight-based dosing when appropriate to reduce radiation dose to as low as reasonably achievable. Dictated by Aravind Gutiérrez @ 01/03/2022 9:42:13 AM Signed by: Rg Villa MD @01/03/2022 9:42:13 AM (Electronic Signature) GLUCOSE METER Timed 12/31/2021 8:12 AM Results for this CDT procedure are i n the results section. SCAN-CARDIAC STRIP 12/31/2021 7:16 AM CDT BLOOD GAS,VENOUS Early AM 12/31/2021 4:23 AM Resul ts for this CDT procedure are i n the results section. CBC W PLT NO DIFF Early AM 12/31/2021 4:23 AM Resu lts for this CDT procedure are i n the results section. BASIC METABOLIC PANEL Early AM 12/31/2021 4:23 AM Results for this CDT procedure are i n the results section. TROPONIN I Early AM 12/31/2021 4:23 AM Results f or this CDT procedure are i n the results section. GLUCOSE METER Timed 12/31/2021 4:22 AM Results for this CDT procedure are i n the results section. TROPONIN I Early AM 12/31/2021 12:57 Results for this AM CDT procedure are i n the results section. GLUCOSE METER Timed 12/30/2021 9:27 PM Results for this CDT procedure are i n the results section. GLUCOSE METER Timed 12/30/2021 6:31 PM Results for this CDT procedure are i n the results section. GLUCOSE METER Timed 12/30/2021 12:10 Results fo r this PM CDT procedure are i n the results section. SCAN-CARDIAC STRIP 12/30/2021 7:00 AM CDT CBC W PLT NO DIFF Early AM 12/30/2021 4:52 AM Resu lts for this CDT procedure are i n the results section. BASIC METABOLIC PANEL Early AM 12/30/2021 4:52 AM Results for this CDT procedure are i n the results section. BLOOD GAS,VENOUS Early AM 12/30/2021 4:52 AM Resul ts for this CDT procedure are i n the results section. GLUCOSE METER Timed 12/30/2021 4:10 AM Results for this CDT procedure are i n the results section. SCAN-CARDIAC STRIP 12/30/2021 12:23 AM CDT GLUCOSE METER Timed 12/29/2021 10:07 Results fo r this PM CDT procedure are i n the results section. GLUCOSE METER Timed 12/29/2021 4:42 PM Results for this CDT procedure are i n the results section. SCAN-CARDIAC STRIP 12/29/2021 3:00 PM CDT BLOOD GAS,VENOUS Today 12/29/2021 1:11 PM Resul ts for this CDT procedure are i n the results section. GLUCOSE METER Timed 12/29/2021 8:35 AM Results for this CDT procedure are i n the results section. SCAN-CARDIAC STRIP 12/29/2021 8:00 AM CDT BLOOD GAS,VENOUS Early AM 12/29/2021 5:47 AM Resul ts for this CDT procedure are i n the results section. CBC W PLT NO DIFF Early AM 12/29/2021 5:47 AM Resu lts for this CDT procedure are i n the results section. BASIC METABOLIC PANEL Early AM 12/29/2021 5:47 AM Results for this CDT procedure are i n the results section. TROPONIN I Early AM 12/29/2021 5:47 AM Results f or this CDT procedure are i n the results section. XR CHEST 1 VIEW Routine 12/29/2021 4:43 AM Result s for this PORTABLE CDT procedure are i n the results section. GLUCOSE METER Timed 12/29/2021 2:42 AM Results for this CDT procedure are i n the results section. GLUCOSE METER Timed 12/28/2021 8:42 PM Results for this CDT procedure are i n the results section. EKG 12 LEAD Routine 12/28/2021 8:27 PM Results f or this CDT procedure are i n the results section. GLUCOSE METER Timed 12/28/2021 3:28 PM Results for this CDT procedure are i n the results section. GLUCOSE METER Timed 12/28/2021 8:59 AM Results for this CDT procedure are i n the results section. HBSAG (HBS) GLORY 12/28/2021 8:37 AM Results f or this CDT procedure are i n the results section. PHOSPHORUS Early AM 12/28/2021 8:37 AM Results f or this CDT procedure are i n the results section. MAGNESIUM Early AM 12/28/2021 8:37 AM Results f or this CDT procedure are i n the results section. BLOOD GAS,VENOUS Early AM 12/28/2021 8:37 AM Resul ts for this CDT procedure are i n the results section. CBC W PLT NO DIFF Early AM 12/28/2021 8:37 AM Resu lts for this CDT procedure are i n the results section. BASIC METABOLIC PANEL Early AM 12/28/2021 8:37 AM Results for this CDT procedure are i n the results section. TROPONIN I Early AM 12/28/2021 8:36 AM Results f or this CDT procedure are i n the results section. GLUCOSE METER Timed 12/28/2021 4:54 AM Results for this CDT procedure are i n the results section. GLUCOSE METER Timed 12/28/2021 12:07 Results fo r this AM CDT procedure are i n the results section. SCAN-CARDIAC STRIP 12/27/2021 7:38 PM CDT GLUCOSE METER Timed 12/27/2021 5:51 PM Results for this CDT procedure are i n the results section. SPUTUM CULTURE, STAIN Today 12/27/2021 5:10 PM Results for this CDT procedure are i n the results section. BLOOD GAS,VENOUS Today 12/27/2021 1:45 PM Resul ts for this CDT procedure are i n the results section. MRSA/SA PCR Today 12/27/2021 12:38 Results for this PM CDT procedure are i n the results section. ECHO COMPLETE W Routine 12/27/2021 12:10 Results for this CONTRAST PM CDT procedure are i n the results section. GLUCOSE METER Timed 12/27/2021 12:06 Results fo r this PM CDT procedure are i n the results section. VANCOMYCIN Timed 12/27/2021 10:41 Results for this AM CDT procedure are i n the results section. TROPONIN I Early AM 12/27/2021 4:54 AM Results f or this CDT procedure are i n the results section. PHOSPHORUS Early AM 12/27/2021 4:54 AM Results f or this CDT procedure are i n the results section. MAGNESIUM Early AM 12/27/2021 4:54 AM Results f or this CDT procedure are i n the results section. CBC W PLT NO DIFF Early AM 12/27/2021 4:54 AM Resu lts for this CDT procedure are i n the results section. BASIC METABOLIC PANEL Early AM 12/27/2021 4:54 AM Results for this CDT procedure are i n the results section. SCAN-CARDIAC STRIP 12/27/2021 3:35 AM CDT GLUCOSE METER Timed 12/27/2021 3:31 AM Results for this CDT procedure are i n the results section. COVID 19 Timed 12/27/2021 2:50 AM Results f or this CDT procedure are i n the results section. COVID 19 COLLECTION Today 12/27/2021 2:50 AM Re sults for this CDT procedure are i n the results section. LACTATE VENOUS Timed 12/27/2021 2:45 AM Results for this CDT procedure are i n the results section. TROPONIN I GLORY 12/27/2021 1:33 AM Results f or this CDT procedure are i n the results section. POTASSIUM STAT 12/27/2021 1:33 AM Results f or this CDT procedure are i n the results section. BLOOD CULTURE STAT 12/27/2021 12:59 Results fo r this AM CDT procedure are i n the results section. BLOOD CULTURE STAT 12/27/2021 12:52 Results fo r this AM CDT procedure are i n the results section. XR CHEST 1 VIEW STAT 12/27/2021 12:26 Results for this PORTABLE AM CDT procedure are i n the results section. LACTATE VENOUS STAT 12/27/2021 12:17 Results f or this AM CDT procedure are i n the results section. LACTATE SCREEN VENOUS STAT 12/27/2021 12:17 Re sults for this ISTAT W PUGH AM CDT procedure are i n the results section. CBC WITH AUTO STAT 12/27/2021 12:10 Results fo r this DIFFERENTIAL AM CDT procedure are i n the results section. EXTRA TUBE PUGH ON ICE STAT 12/27/2021 12:10 R esults for this AM CDT procedure are i n the results section. PROCALCITONIN STAT 12/27/2021 12:10 Results fo r this AM CDT procedure are i n the results section. PROTIME-INR STAT 12/27/2021 12:10 Results for this AM CDT procedure are i n the results section. COMP METABOLIC PANEL STAT 12/27/2021 12:10 Res ults for this AM CDT procedure are i n the results section. CBC WITH AUTO STAT 12/27/2021 12:10 Results fo r this DIFFERENTIAL AM CDT procedure are i n the results section. ISTAT LACTATE SCREEN STAT 12/27/2021 12:10 Res ults for this VENOUS AM CDT procedure are i n the results section. EKG 12 LEAD STAT 12/27/2021 12:08 Results for this AM CDT procedure are i n the results section. SCAN-RADIOLOGY REPORT 12/22/2021 12:00 Re sults for this AM CDT procedure are i n the results section. ANTI HCV Add On 11/30/2021 12:45 Need [...] AM CDT from Last 3 Months Results XR ORTHOPANTOGRAM (01/03/2022 6:10 PM CDT) Anatomical Region Laterality Modality PANOREX Digital Radiography Specimen (Source) Anatomical Collection Method Collection Time Re ceived Time Location / / Volume Laterality 01/03/2022 8:33 PM CDT Narrative 01/03/2022 8:33 PM CDT For Patients: ??As a result of the Cures Act, medical imaging exams and procedure report s are released immediately into your [facility] medical record. ??You may view this report before your referring provider. ??If you have questions, please contact your health care provider. 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 TECHNIQUE: Orthopantogram. COMPARISON: None. FINDINGS: Dental hardware. No lytic or blastic bon e lesions. No fracture. Dictated by Parker Pérez MD @ Jan 03 2022 ??8:33PM (Electronically Signed) ?? Procedure Note Parker Pérez MD - 01/03/2022 For Patients: As a result of the Cures Act, medical imaging exams and procedure reports are released immediately into your electronic medical record. You may view this report before your referring provider. If you have questions, please contact yo health care provider. 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 TECHNIQUE: Orthopantogram. COMPARISON: None. FINDINGS: Dental hardware. No lytic or blastic bon e lesions. No fracture. Dictated by Parker Pérez MD @ Jan 03 2022 8:33PM (Electronically Signed) Maxwell Kim MD GENERAL IMAGING (ABNORMAL) GLUCOSE METER (01/03/2022 12:21 PM CDT)Only the most recent of27 resultswithin the time period is included. athologist Signature GLUCOSE METER 303 (H) 65 - 100 01/03/2022 [facility] mg/dL 12:22 PM CDT LABORATORY-[facility] TRAL LAB[facility]ATORY Specimen Anatomical Collection Method Collection Time Receive d Time (Source) Location / / Volume Laterality Blood BLOOD SPECIMEN / 01/03/2022 12:21 022 Unknown PM CDT 12:22 PM CDT India York MD CHEMISTRY Performing Organization Address City/State/ZIP Code Phon e Number [facility] [address] [place] [address] LABORATORY-CENTRAL 2000 LABORATORY (ABNORMAL) TROPONIN I (01/03/2022 9:48 AM CDT)Only the most recent of9 results within the time period is included. athologist Signature TROPONIN I 0.167 (H) <0.034 01/03/2022 [facility] ng/mL 11:11 AM CDT LAB[facility]ATORY-[facility] Specimen Anatomical Collection Method / Collection Time Recei annie Time (Source) Location / Volume Laterality Blood BLOOD SPECIMEN / Venipuncture / 01/03/2022 9:48 2021 Unknown Unknown AM CDT 10:01 AM CDT Dayne Woody MD CHEMISTRY Performing Organization Address City/[facility]/ZIP [facility] Phon e Number [facility] [address] [place] [address] LABORATORY-CENTRAL 2000 LABORATORY PLATELET COUNT (01/03/2022 9:48 AM CDT) athologist Signature PLATELET COUNT 149 140 - 440 01/03/2022 [place] [facility] thou/cu mm 10:12 AM CDT LABORATORY-[facility] MPV 9.7 6.5 - 11.0 01/03/2022 [place] [facility] fL 10:12 AM CDT LAB[facility]ATORY-[facility] Specimen Anatomical Collection Method / Collection Time Recei annie Time (Source) Location / Volume Laterality Blood BLOOD SPECIMEN / Venipuncture / 01/03/2022 9:48 2021 Unknown Unknown AM CDT 10:00 AM CDT Narrative [facility] LABORATORY-CENTRAL LABORAT ORY - 01/03/2022 10:12 AM CDT While on subcutaneous heparin Sam Barreto MD HEMATOLOGY Performing Organization Address [facility] Phon e Number [place] [facility] [address] [facility] [place] [address] LABORATORY-CENTRAL 2000 LABORATORY (ABNORMAL) Lipid Panel AM (01/03/2022 9:48 AM CDT) [facility] gist Method Time Signature CHOLESTEROL,TOTAL 114 100 - 199 01/03/2022 [facility] mg/dL 3:12 PM CDT [facility] TRIGLYCERIDES 78 <150 01/03/2022 [facility] mg/dL 3:12 PM CDT [facility] HDL CHOLESTEROL 39 (L) >40 mg/dL 01/03/2022 [facility] 3:12 PM CDT [facility] NON-HDL 75 <145 01/03/2022 [facility] [place] CHOLESTEROL mg/dl 3:12 PM CDT [facility] CHOL/HDL RATIO 2.92 <4.50 01/03/2022 [facility] [place] 3:12 PM CDT [facility] LDL CHOLESTEROL 59 <=130 01/03/2022 [facility] mg/dL 3:12 PM CDT [facility] VLDL CHOLESTEROL 16 <=30 [facility]/03[facility] 3:12 PM CDT [facility] PROVIDER ORDERED RANDOM 01/03/2022 [facility] STATUS 3:12 PM CDT [facility] Specimen Anatomical Collection Method / Collection Time Recei annie Time (Source) Location / Volume Laterality Blood BLOOD SPECIMEN / Venipuncture / 01/03/2022 9:48 2021 Unknown Unknown AM CDT 10:01 AM CDT Rochelle MARTIN CHEMISTRY Performing Organization Address City/State/ZIP Code Phon e Number [facility] [phone] [place] [address] LABORATORY-CENTRAL 2000 LABORATORY SCAN-CARDIAC STRIP (12/31/2021 7:16 AM CDT) Narrative This result has an attachment that is no t available. Scanner OTHER (ABNORMAL) CBC no diff AM (12/31/2021 4:23 AM CDT)Only the most recent of5 resultswithin the time period is included. [facility] Method Time Signature WHITE BLOOD 6.3 4.5 - 11.0 12/31/2021 [facility] [place] COUNT thou/cu mm 4:51 AM CDT [facility] RED BLOOD COUNT 3.91 (L) 4.30 - 12/31/2021 [facility] [place] 5.90 4:51 AM CDT LABORATORY-[facility] mil/cu mm TRAL LABORATORY HEMOGLOBIN 12.2 (L) 13.5 - 12/31/2021 [facility] [place] 17.5 g/dL 4:51 AM CDT [facility] HEMATOCRIT 38.5 37.0 - 12/31/2021 [facility] [place] 53.0 % 4:51 AM CDT [facility] MCV 99 80 - 100 [facility]/2021 [facility]51 AM CDT [facility] MCH 31.2 26.0 - 12/31/2021 [facility] 34.0 pg 4:51 AM CDT [facility] MCHC 31.7 (L) 32.0 - 12/31/2021 [facility] 36.0 g/dL 4:51 AM CDT [facility] RDW 16.6 (H) 11.5 - 12/31/2021 [facility] 15.5 % 4:51 AM CDT [facility] PLATELET COUNT 159 140 - 440 12/31/2021 [facility] thou/cu mm 4:51 AM CDT [facility] MPV 9.6 6.5 - 11.0 12/31/2021 [facility] fL 4:51 AM CDT [facility] NRBC 0.3 % 12/31/2021 [facility] 4:51 AM CDT [facility] ABS NRBC 0.0 thou /cu 12/31/2021 [facility] mm 4:51 AM CDT [facility] Specimen Anatomical Collection Method Collection Time Receive d Time (Source) Location / / Volume Laterality Blood BLOOD SPECIMEN / Butterfly / 12/31/2021 4:23 AM 12/31 4:42 Unknown Unknown CDT AM CDT Narrative [facility] LABORATORY-CENTRAL LABORAT ORY - 12/31/2021 4:51 AM CDT While on subcutaneous heparin Corin Doan MD HEMATOLOGY Performing Organization Address City/State/ZIP Code Phon e Number [facility] [address] [place] [id number] LABORATORY-CENTRAL 2000 LABORATORY (ABNORMAL) BLOOD GAS,VENOUS (12/31/2021 4:23 AM CDT)Only the most recent of6 resultswithin the time period is included. [facility] Method Time Signature PH, VENOUS 7.32 7.32 - 7.43 12/31/2021 [facility] 4:53 AM CDT [facility] PCO2, VENOUS 62 (H) 41 - 51 12/31/2021 [facility] mmHg 4:53 AM CDT [facility] PO2, VENOUS 32 (L) 35 - 40 12/31/2021 [facility] mmHg 4:53 AM CDT [facility] HCO3,VENOUS 32 (H) 22 - 29 12/31/2021 [place] [facility] mmol/L 4:53 AM CDT [facility] BASE EXCESS, 4.0 (H) -2.0 - 3.0 12/31/2021 [facility] [place] VENOUS, POCT 4:53 AM CDT [facility] O2 SATURATION, 64 (L) 70 - 75 % 12/31/2021 [facility] [place] VENOUS 4:53 AM CDT [facility] PATIENT 37.0 Degrees C 12/31/2021 [facility] [place] TEMPERATURE 4:53 AM CDT [facility] Specimen Anatomical Collection Method Collection Time Receive d Time (Source) Location / / Volume Laterality Blood BLOOD SPECIMEN / Butterfly / 12/31/2021 4:23 AM 12/31 4:42 Unknown Unknown CDT AM CDT Corin Doan MD CHEMISTRY Performing Organization Address City/State/ZIP Code Phon e Number [facility] [phone] [place] [id number] LABORATORY-CENTRAL 2000 LABORATORY (ABNORMAL) Basic metabolic panel AM (12/31/2021 4:23 AM CDT)Only the most recent of5 resultswithin the time period is included. [facility] Method Time Signature SODIUM 132 (L) 135 - 145 12/31/2021 [place] [place] mmol/L 5:29 AM CDT [facility] POTASSIUM 4.1 3.5 - 5.0 12/31/2021 [place] [facility] mmol/L 5:29 AM CDT [facility] CHLORIDE 98 98 - 110 12/31/2021 [place] [facility] mmol/L 5:29 AM CDT [facility] CO2,TOTAL 24 21 - 31 12/31/2021 [place] [facility] mmol/L 5:29 AM CDT [facility] ANION GAP 10 5 - 18 12/31/2021 [place] 5:29 AM CDT [facility] GLUCOSE 107 (H) 65 - 100 12/31/2021 [place] [facility] mg/dL 5:29 AM CDT [facility] CALCIUM 9.6 8.5 - 10.5 12/31/2021 [facility] mg/dL 5:29 AM CDT [facility] BUN 19 8 - 25 12/31/2021 [facility] [place] mg/dL 5:29 AM CDT [facility] CREATININE 4.06 (H) 0.72 - 12/31/2021 [facility] 1.25 mg/dL 5:29 AM CDT LAB[facility]AT[facility] BUN/CREAT RATIO 5 (L) 10 - 20 12/31/2021 [facility] 5:29 AM CDT [facility] TR[facility] LAB[facility]ATORY eGFR 15 (L) >90 12/31/2021 [facility] mL/min/1.7 5:29 AM CDT LABORATORY-[facility] 3m2 TRAL LABORATORY Comment: As of 2021, eGFR is calcu lated by the CKD-EPI creatinine equation without race adjustment. eGFR can be inf luenced by muscle mass, exercise, and diet. The reported eGFR is an estimation only and is only applicable if the renal function is stable. Specimen Anatomical Collection Method Collection Time Receive d Time (Source) Location / / Volume Laterality Blood BLOOD SPECIMEN / Butterfly / 12/31/2021 4:23 AM 12/31 4:42 Unknown Unknown CDT AM CDT Corin Doan MD CHEMISTRY Performing Organization Address City/State/ZIP Code Phon e Number [facility] [address] [place] [id number] LABORATORY-CENTRAL 2000 LABORATORY SCAN-CARDIAC STRIP (12/30/2021 7:00 AM CDT) Narrative This result has an attachment that is no t available. Scanner OTHER SCAN-CARDIAC STRIP (12/30/2021 12:23 AM CDT) Narrative This result has an attachment that is no t available. Scanner OTHER SCAN-CARDIAC STRIP (12/29/2021 3:00 PM CDT) Narrative This result has an attachment that is no t available. Scanner OTHER SCAN-CARDIAC STRIP (12/29/2021 8:00 AM CDT) Narrative This result has an attachment that is no t available. Scanner OTHER XR CHEST 1 VIEW PORTABLE (12/29/2021 4:43 AM CDT)Only the most recent of2 resultswithin the time period is included. Anatomical Region Laterality Modality HEART, THORAX, CHEST Digital Radiography Specimen (Source) Anatomical Collection Method Collection Time Re ceived Time Location / / Volume Laterality 12/29/2021 6:39 AM CDT Impressions 12/29/2021 6:39 AM CDT 1. Improved aeration of the left lung. 2. Persistent interstitial opacities whi ch may indicate mild interstitial edema. Dictated by Ashvin Lubin MD @ Dec 182021 ??6:39AM (Electronically Signed) ?? Narrative 12/29/2021 6:39 AM CDT For Patients: ??As a result of the Cures Act, medical imaging exams and procedure report s are released immediately into your [employer] medical record. ??You may view this report before your referring provider. ??If you have questions, please contact your health care provider. HISTORY: Lung infiltrate. TECHNIQUE: One view chest. COMPARISON: 12/27/2021. FINDINGS: Sternotomy and aortic valve replacement. Heart size prominent but exaggerated by technique and unchanged. There are persistent interstitial opacities which may relate to interstitial edema. Mildly impro annie aeration of left lung as compared to the prior examination. There is no pneumothorax. No moderate or large pleural effusion. Procedure Note Ashvin Lubin MD - 2 For Patients: As a result of the Cures Act, medical imaging exams and procedure reports are released immediately into your electronic medical record. You may view this report before your referring provider. If you have questions, please contact yo health care provider. HISTORY: Lung infiltrate. TECHNIQUE: One view chest. COMPARISON: 12/27/2021. FINDINGS: Sternotomy and aortic valve replacement. Heart size prominent but exaggerated by technique and unchanged. There are persistent interstitial opacities which may relate to interstitial edema. Mildly improved aeration of left lung as compared to the prior ex amination. There is no pneumothorax. No moderate or large pleural effusion. IMPRESSION: 1. Improved aeration of the left lung. 2. Persistent interstitial opacities whi ch may indicate mild interstitial edema. Dictated by Ashvin Lubin MD @ Dec 182021 6:39AM (Electronically Signed) Eufemia Batres MD GENERAL IMAGING EKG 12 LEAD (12/28/2021 8:27 PM CDT)Only the most recent of2 resultswithin the time period is included. Component Value Ref Range Test Analysis Performed Pathologis t Method Time At Signature Interpretation Atrial fibrillation BEYON D NOW Right axis deviation Non-specific intra-ventricular conduction delay Abnormal ECG When compared with ECG of 27-DEC-2021 00:08, Vent. rate has decreased BY ??77 BPM Criteria for Septal infarct are no longer Present ST no longer depressed in Inferior leads Nonspecific T wave abnormality now evident in Anterior leads Ventricular Rate 64 BPM BEYOND NOW Atrial Rate BPM BEYOND NOW P-R Interval ms BEYOND NOW QRS Duration 124 ms BEYOND NOW QT 422 ms BEYOND NOW QTc 435 ms BEYOND NOW P [place] degrees BEYOND NOW R [place] 112 degrees BEYOND NOW T [place] 12 degrees BEYOND NOW Specimen Anatomical Collection Method Collection Time Receive d Time (Source) Location / / Volume Laterality 12/28/2021 8:27 PM 4:51 CDT PM CDT Bree De Guzman MD EKG ORD Performing Organization Address City/State/ZIP Code Phon e Number [place] HBSAG (HBS) (12/28/2021 8:37 AM CDT) Patholo gist Method Time Signature HBSAG Nonreactive Nonreactive 12/28/2021 [facility] 9:08 PM CDT LABORATORY[facility]ATORY Specimen Anatomical Collection Method Collection Time Receive d Time (Source) Location / / Volume Laterality Blood BLOOD SPECIMEN / Butterfly / 12/28/2021 8:37 AM 12/28 8:53 Unknown Unknown CDT AM CDT Krys Carrasco MD SEND OUTS Performing Organization Address City/State/ZIP Code Phon e Number [facility] [address] [place] [address] LABORATORY-CENTRAL 2000 LABORATORY (ABNORMAL) Phosphorus AM (12/28/2021 8:37 AM CDT)Only the most recent of2 resultswithin the time period is included. P athologist Signature PHOSPHORUS 5.1 (H) 2.3 - 4.7 12/28/2021 [place] [facility] mg/dL 9:14 AM CDT LABORATORY-CENT RAL LABORATORY Specimen Anatomical Collection Method Collection Time Receive d Time (Source) Location / / Volume Laterality Blood BLOOD SPECIMEN / Butterfly / 12/28/2021 8:37 AM 12/28 8:53 Unknown Unknown CDT AM CDT Corin Doan MD CHEMISTRY Performing Organization Address City/State/ZIP Code Phon e Number [facility] [address] [place] [address] LABORATORY-CENTRAL 1999 LABORATORY Magnesium AM (12/28/2021 8:37 AM CDT)Only the most recent of2 resultswithin the time period is included. athologist Signature MAGNESIUM 1.8 1.6 - 2.6 12/28/2021 [facility] mg/dL 9:16 AM CDT LABORATORY-CENTR AL LABORATORY Specimen Anatomical Collection Method Collection Time Receive d Time (Source) Location / / Volume Laterality Blood BLOOD SPECIMEN / Butterfly / 12/28/2021 8:37 AM 12/28 8:53 Unknown Unknown CDT AM CDT Corin Doan MD CHEMISTRY Performing Organization Address [facility]/ZIP Code Phon e Number [facility] [address] [place] [address] LABORATORY-CENTRAL 1999 LABORATORY SCAN-CARDIAC STRIP (12/27/2021 7:38 PM CDT) Narrative This result has an attachment that is no t available. Scanner OTHER (ABNORMAL) Sputum culture (12/27/2021 5:10 PM CDT) [facility] gist Method Time Signature CULTURE RESULT (A) 12/30/2021 [facility] 10:58 AM CDT LAB[facility] CULTURE 3+ Serratia 12/30/2021 [facility] marcescens 10:58 AM CDT LAB[facility]AT[facility] Comment: Oral cephalosporins are not rec ommended due to concern for derepression of AmpC beta-lactamases. CULTURE 3+ Staphylococcus 12/30/2021 10:58 [facility] aureus AM CDT LABORATORY-CENTRAL LABORATORY CULTURE 3+ Usual Liset 12/30/2021 10:58 [facility] AM CDT LABORATORY-CENTRAL LABORATORY GRAM STAIN 2+ PMNs 12/30/2021 10:58 [facility] AM CDT LABORATORY-CENTRAL LABORATORY GRAM STAIN 4+ Yeast 12/30/2021 10:58 [facility] AM CDT LABORATORY-CENTRAL LABORATORY GRAM STAIN 4+ Gram Positive 12/30/2021 10:58 [facility] Bacilli AM CDT LABORATORY-CENTRAL LABORATORY GRAM STAIN 2+ Gram Positive Cocci 12/30/2021 10:58 [facility] AM CDT LABORATORY-CENTRAL LABORATORY GRAM STAIN 2+ Gram Negative 12/30/2021 10:58 [facility] Bacilli AM CDT LABORATORY-CENTRAL LABORATORY Specimen Anatomical Collection Method Collection Time Receive d Time (Source) Location / / Volume Laterality Sputum SPUTUM SPECIMEN / Non-Blood / 12/27/2021 5:10 PM 12/18 5:17 Unknown Unknown CDT PM CDT Organism Antibiotic Method Susceptibility Serratia marcescens TRIMETHOPRIM/SULF <=1/19: S Serratia marcescens CEFAZOLIN >=64: R Serratia marcescens GENTAMICIN <=1: S Serratia marcescens CEFTRIAXONE <=1: S Serratia marcescens CEFTAZIDIME <=1: S Serratia marcescens LEVOFLOXACIN <=0.12: S Serratia marcescens CIPROFLOXACIN <=0.25: S Serratia marcescens CEFEPIME <=1: S Serratia marcescens TOBRAMYCIN <=1: S Serratia marcescens MEROPENEM <=0.25: S Staphylococcus aureus OXACILLIN <=0.25: S Comment: Oxacillin susceptib le should not be interpreted as penicillin or amoxicillin susceptible. Staphylococcus aureus ERYTHROMYCIN <=0.25: S Staphylococcus aureus CLINDAMYCIN <=0.25: S Staphylococcus aureus TETRACYCLINE <=1: S Staphylococcus aureus CEFAZOLIN S Staphylococcus aureus VANCOMYCIN <=0.5: S Staphylococcus aureus LEVOFLOXACIN 0.25: S Staphylococcus aureus TRIMETHOPRIM/SULF <=0.5/9. 5: S Corin Doan MD MICROBIOLOGY Performing Organization Address City/State/ZIP Code Phon e Number [facility] [address] [place] [address] LABORATORY-CENTRAL 2000 LABORATORY (ABNORMAL) MRSA/SA PCR (12/27/2021 12:38 PM CDT) [facility] Method Time Signature MRSA DNA PCR Negative Negative 12/27/2021 [facility] 3:43 PM CDT LABORATORY-CE NTRAL LABORATORY STAPHYLOCOCCUS Positive Negative 12/27/2021 [facility] AUREUS PCR (A) 3:43 PM CDT LABORATORY-CE NTRAL LABORATORY Specimen Anatomical Collection Method Collection Time Receive d Time (Source) Location / / Volume Laterality Other SPECIMEN FROM Non-Blood / 12/27/2021 12:38 12/27/2021 INTERNAL NOSE / Unknown PM CDT 12:47 PM CDT Unknown Narrative [facility]-CENTRAL LABORAT ORY - 12/27/2021 3:43 PM CDT S. aureus detected; NOT MRSA. Test result does not preclude MRSA nasal colonization. False negative for MRSA could be obtained if MRSA present in the sample is below threshold of detection. Corin Doan MD MICROBIOLOGY Performing Organization Address City/State/ZIP Code Phon e Number [facility] [address] [place] [address] LABORATORY-CENTRAL 2000 LABORATORY ECHO COMPLETE W CONTRAST (12/27/2021 12:10 PM CDT) P athologist Signature AORTIC VALVE 46 mmHg MEAN PG EJECTION 62 % FRACTION PEAK TR 3.7 m/s VELOCITY LVEDD 5.5 cm EJECTION 60 - 65% FRACTION Anatomical Region Laterality Modality HEART Ultrasound Specimen (Source) Anatomical Collection Method Collection Time Re ceived Time Location / / Volume Laterality 12/27/2021 10:51 AM CDT Narrative 12/27/2021 1:36 PM CDT ECHOCARDIOGRAM CHEUNG Jimena MEJIA ? Accessi on#: ?? [id number] : ?1945 76 years Study Date: ?? 12/27/2021 10:51:49 AM Gender: M ?BP: ? 101/56 mmHg Height: 177.00 cm ?BSA: ?2.23 m? ?? Weight: 107.00 kg ?Tech: ? AH ? Referring MD: DAYEN WOODY Site: ? [facility] Reading Location: [facility] IP Procedure: 2D w/ Contrast, Color Doppler and Spectral Doppler. Indication for study: AVR, MS Cardiac Rhythm: Atrial fibrillation.Stud y quality: Final Impressions: 1. Normal LV size, normal wall thicknes s, normal global systolic function with an estimated EF of 60 - 65%. 2. Right ventricular cavity size is sev erely enlarged, global systolic RV function is moderately reduced. 3. The aortic valve is a 25mm Thermafix AVR, severe stenosis and no regurgitation. There is mild paravalvular regurgitation. Mean grad 46 mmHg, V max 4.3 m/s. DI -.16. 4. The mitral valve is sclerotic, mild- moderate mitral regurgitation. 5. Mitral stenosis with moderate to sev erely increased mean gradient of 6.6 mmHg at a heart rate of 67. 6. Echo contrast was administrered to e nhance visualization of all left ventricular segments. 7. Moderate tricuspid regurgitation. 8. Moderately increased estimated pulmo nary pressures by tricuspid regurgitation velocity and right atrial pressure (53 mmHg plus RAP). 9. Mildly enlarged left atrium. Comparison Compared to prior exam of 01/26/2021: - Aortic stenosis has increased. - The right ventricular systolic functio n has decreased. Chamber Sizes and Function Normal left ventricular size, normal wal l thickness, normal global systolic function with an estimated EF of 60 - 65%. Left atrial size is mildly enlarged. Right ventricular cavity size is severely enla rged, global systolic RV function is mod erately reduced. The right atrium is severely enlarged. Right atrial area is 36 cm? ??. The pulmonary artery is not well visualized. The sinus of Valsalva is normal sized. The ascending aorta is normal sized. Valves, RV Pressures and Diastolic Funct ion The aortic valve is 25mm Thermafix AVR, severe stenosis and no regurgitation. There is mild paravalvular regurgitation. Increased velocity across the prosthetic aortic valve, clinical correlation recomm ended. The mitral valve is sclerotic, mi ld to moderate mitral regurgitation. A moderate to severely increased gradient of 6.6 mmHg at a heart rate of 67 is calculated across the mitral valve using continuous Doppler examination. Indeterminate pattern of LV diastolic fi lling. The tricuspid valve is normal in structure. Tricuspid regurgitation is moderate. The tricuspid regurgitant velocity is 3.7 m/s, the estimated right ventric ular systolic pressure is 53 mmHg plus r ight atrial pressure. There is moderately increased estimated pulmonary pressure by tricuspid regurgitation velocity and right atrial pressure. The pulmonic valve is normal. No pulmonary regurgitation. Masses, Effusion, Shunts There is no pericardial effusion. The in ferior vena cava is not well visualized, respiratory size variation not well visualized. Interatrial septum is not well visualized. MEASUREMENTS AND CALCULATIONS 2-D Measurements and LV Function: LVID (d) 5.5 cm LV FS% (2D) ?? 37 % LVID (s) 3.5 cm LVOT diameter 2.2 cm IVS (d) ??1.1 cm HR ?61 bpm LVPW (d) 1.2 cm LA Vol index ??56 ml/m2 Ao Sinus 2.6 cm RA area ? 36 cm? ?? Asc Ao ?? 3.7 cm LA ? 4.4 cm Diastology: Mitral ?Tissue Doppler E Peak 2.0 m/s ??e', Septum ? 0.05 m /s DT ? 243 msec e', Lateral ?0.10 m/s ?E/e' Average ?? 27.18 Aortic Valve: Vmax ? 4.3 m/s ??CLAUS (V) ?? 0.58 cm? ?? VTI ?1.19 m ?? CLAUS (I) ?? 0.57 cm? ?? LVOT V max 0.7 m/s ??Max PG ?73 mmHg LVOT VTI ?? 0.18 m ?? Mean PG ?? 46 mmHg SV ? 68 ml ?Dim Index 0.16 SV index ?? 31 ml/m? ?? CO ?4.2 l/min ?CI ?1.9 l/min/m? ?? Mitral Valve: MVA ? 3.1 cm? ?? MR TVI 1.38 m MV P 1/2 ??70 msec MV Mean G 7 mmHg MV VTI ?0.59 m Tricuspid Valve and estimated PA pressur es: TR Vmax 3.7 m/s TAPSE 1.4 cm TR maxG 53 mmHg Pulmonic Valve: PV Vmax 0.7 m/s PV AT ?? 101 msec Contrast documentation: 2cc ml diluted D william, lot #[id number], was administered peripherally to enhance visualization of all left ventricular segments. . This study was interpreted by an [facility] facility. ??Final ?? Procedure Note Kaylee Hdz MD - 12/28/2021For matting of this note might be different from the original. ECHOCARDIOGRAM JONATAN MEJIA : 1945 76 years Study Date: 12/18 10:51:49 AM Gender: M BP: 101/56 mmHg Height: 177.00 cm BSA: 2.23 m? ?? Weight: 107.00 kg Tech: Referring MD: DAYNE WOODY Site: [facility] Reading Location: [facility] IP Procedure: 2D w/ Contrast, Color Doppler and Spectral Doppler. Indication for study: AVR, MS Cardiac Rhythm: Atrial fibrillation.Stud y quality: Final Impressions: 1. Normal LV size, normal wall thicknes s, normal global systolic function with an estimated EF of 60 - 65%. 2. Right ventricular cavity size is sev erely enlarged, global systolic RV function is moderately reduced. 3. The aortic valve is a 25mm Thermafix AVR, severe stenosis and no regurgitation. There is mild paravalvular regurgitation. Mean grad 46 mmHg, V max 4.3 m/s. DI -.16. 4. The mitral valve is sclerotic, mild- moderate mitral regurgitation. 5. Mitral stenosis with moderate to sev erely increased mean gradient of 6.6 mmHg at a heart rate of 67. 6. Echo contrast was administrered to e nhance visualization of all left ventricular segments. 7. Moderate tricuspid regurgitation. 8. Moderately increased estimated pulmo nary pressures by tricuspid regurgitation velocity and right atrial pressure (53 mmHg plus RAP). 9. Mildly enlarged left atrium. Comparison Compared to prior exam of 01/26/2021: - Aortic stenosis has increased. - The right ventricular systolic functio n has decreased. Chamber Sizes and Function Normal left ventricular size, normal wal l thickness, normal global systolic function with an estimated EF of 60 - 65%. Left atrial size is mildly enlarged. Right ventricular cavity size is severely enlarged, global systolic RV function is moderatel y reduced. The right atrium is severely enlarged. Right atrial area is 36 cm? ??. The pulmonary artery is not well visualized. The sinus of Valsalva is normal sized. The ascending aorta is normal sized. Valves, RV Pressures and Diastolic Funct ion The aortic valve is 25mm Thermafix AVR, severe stenosis and no regurgitation. There is mild paravalvular regurgitation. Increased velocity across the prosthetic aortic valve, clinical correlation recommended. The mitral valve is sclerot ic, mild to moderate mitral regurgitation. A moderate to severely increased gradient of 6.6 mmHg at a heart rate of 67 is calculated across the mitral valve using continuous Doppler examination. Indeterminate pattern of LV diastolic fi lling. The tricuspid valve is normal in structure. Tricuspid regurgitation is moderate. The tricuspid regurgitant velocity is 3.7 m/s, the estimated right ventricular systolic pressure is 53 mmHg plus right atrial pr essure. There is moderately increased estimated pulmonary pressure by tricuspid regurgitation velocity and right atrial pressure. The pulmonic valve is normal. No pulmonary regurgitation. Masses, Effusion, Shunts There is no pericardial effusion. The in ferior vena cava is not well visualized, respiratory size variation not well visualized. Interatrial septum is not well visualized. MEASUREMENTS AND CALCULATIONS 2-D Measurements and LV Function: LVID (d) 5.5 cm LV FS% (2D) 37 % LVID (s) 3.5 cm LVOT diameter 2.2 cm IVS (d) 1.1 cm HR 61 bpm LVPW (d) 1.2 cm LA Vol index 56 ml/m2 Ao Sinus 2.6 cm RA area 36 cm? ?? Asc Ao 3.7 cm LA 4.4 cm Diastology: Mitral Tissue Doppler E Peak 2.0 m/s e', Septum 0.05 m/s DT 243 msec e', Lateral 0.10 m/s E/e' Average 27.18 Aortic Valve: Vmax 4.3 m/s CLAUS (V) 0.58 cm? ?? VTI 1.19 m CLAUS (I) 0.57 cm? ?? LVOT V max 0.7 m/s Max PG 73 mmHg LVOT VTI 0.18 m Mean PG 46 mmHg SV 68 ml Dim Index 0.16 SV index 31 ml/m? ?? CO 4.2 l/min CI 1.9 l/min/m? ?? Mitral Valve: MVA 3.1 cm? ?? MR TVI 1.38 m MV P 1/2 70 msec MV Mean G 7 mmHg MV VTI 0.59 m Tricuspid Valve and estimated PA pressur es: TR Vmax 3.7 m/s TAPSE 1.4 cm TR maxG 53 mmHg Pulmonic Valve: PV Vmax 0.7 m/s PV AT 101 msec Contrast documentation: 2cc ml diluted D efinity, lot #[id number], was administered peripherally to enhance visualization of all left ventricular segments. . This study was interpreted by an [facility]. Final Dayne Woody MD ECHO ORD VANCOMYCIN (12/27/2021 10:41 AM CDT) [facility] Method Time Signature VANCOMYCIN 15.2 ug/mL 12/27/2021 [facility] 11:18 AM CDT LABORATORY-[facility] TRAL LABORATORY DATE OF LAST Not Given 12/27/2021 [facility] DOSE,RANDOM 11:18 AM CDT LABORATORY-[facility] TRAL LABORATORY TIME OF LAST Not Given 12/27/2021 [facility] DOSE,RANDOM 11:18 AM CDT LABORATORY-[facility] TRAL LABORATORY Specimen Anatomical Collection Method / Collection Time Recei annie Time (Source) Location / Volume Laterality Blood BLOOD SPECIMEN / Venipuncture / 12/27/2021 10:41 12/27 Unknown Unknown AM CDT 10:47 AM CDT [facility] CHEMISTRY Performing Organization Address City/State/ZIP Code Phon e Number [facility] [address] [place] [address] LABORATORY-CENTRAL 2000 LABORATORY SCAN-CARDIAC STRIP (12/27/2021 3:35 AM CDT) Narrative This result has an attachment that is no t available. Scanner OTHER COVID 19 (12/27/2021 2:50 AM CDT) Analysis Performed At [facility] logist Time Signature COVID 19 Negative Negative 12/27/[address] [facility] 1:47 PM CDT LABORATORY-[facility] MOLECULAR TRAL LABORATORY Comment: All PCR tests are subject to fa lse negative result due to variability in viral load and collection technique. A n egative result does not rule out a SARS-CoV-2 infection. Clinical correlation required . Specimen Anatomical Location / Collection Method Collection Ruslan e Received Time (Source) Laterality / Volume Other SPECIMEN FROM Non-Blood / 12/27/2021 2:50 12/27/2021 3:26 NASOPHARYNGEAL Unknown AM CDT AM CDT STRUCTURE / Unknown Narrative [facility] LABORATORY-CENTRAL LABORAT ORY - 12/27/2021 1:47 PM CDT This test has been authorized by FDA und er an Emergency Use Authorization (EUA). This test is only authorized for the duration of time the declaration that circumstances exist justifying the authorization of th e emergency use of in vitro diagnostic tests for detection of SARS-CoV-2 virus and/or diagnosis of COVID-19 infection under section 564(b)(1) of the Act, 21 U.S.C. 360bbb-3(b)(1), unless the authorization is terminated or revoked sooner. Dayne Woody MD MICROBIOLOGY Performing Organization Address [facility] Phon e Number [facility] [address] [place] [address] LABORATORY-CENTRAL 2000 LABORATORY COVID 19 COLLECTION (12/27/2021 2:50 AM CDT) [facility] gist Method Time Signature TESTING [facility] 12/27/2021 [facility] LABORATORY Laboratory 3:26 AM CDT LABORATORY-CE NTRAL LABORATORY Comment: Specimen submitted to [facility] for testing. Specimen Anatomical Location / Collection Method Collection Ruslan e Received Time (Source) Laterality / Volume Other SPECIMEN FROM Non-Blood / 12/27/2021 2:50 12/27/2021 3:24 NASOPHARYNGEAL Unknown AM CDT AM CDT STRUCTURE / Unknown Dayne Woody MD SEND OUTS Performing Organization Address [facility] Phon e Number [facility] [address] [place] [address] LABORATORY-CENTRAL 1999 LABORATORY LACTATE VENOUS (12/27/2021 2:45 AM CDT)Only the most recent of2 resultswithin the time period is included. athologist Signature LACTATE,VENOUS 1.3 0.5 - 2.0 12/27/2021 [facility] mmol/L 3:15 AM CD[facility] Specimen Anatomical Collection Method Collection Time Receive d Time (Source) Location / / Volume Laterality Blood BLOOD SPECIMEN / Butterfly / 12/27/2021 2:45 AM 12/27 2:52 Unknown Unknown CDT AM CDT Beto Abarca MD CHEMISTRY Performing Organization Address City/[facility]/ZIP [facility] Phon e Number [facility] [address] [place] [address] [place] [address] LABORATORY-CENTRAL 2000 LABORATORY (ABNORMAL) POTASSIUM (12/27/2021 1:33 AM CDT) athologist [facility] POTASSIUM 5.8 (H) 3.5 - 5.0 12/27/2021 [facility] mmol/L 1:54 AM CDT [facility] Specimen Anatomical Collection Method Collection Time Receive d Time (Source) Location / / Volume Laterality Blood BLOOD SPECIMEN / Butterfly / 12/27/2021 1:33 AM 12/27 1:37 Unknown Unknown CDT AM CDT Beto Abarca MD CHEMISTRY Performing Organization Address City/[facility]/ZIP [facility] Phon e Number [facility] [address] [facility] [place] [address] LABORATORY-CENTRAL 2000 LABORATORY BLOOD CULTURE X2 (12/27/2021 12:59 AM CDT)Only the most recent of2 resultswithin the time period is included. athologist [facility] CULTURE No Growth. 01/01/2022 [facility] 2:24 AM CDT [facility] Specimen Anatomical Collection Method Collection Time Receive d Time (Source) Location / / Volume Laterality Blood BLOOD SPECIMEN / Butterfly / 12/27/2021 12:59 022 1:09 Unknown Unknown AM CDT AM CDT Narrative [facility] LABORATORY-CENTRAL LABORAT ORY - 01/01/2022 2:24 AM CDT Low volume blood culture received; possi ble false negative culture. Beto Abarca MD MICROBIOLOGY Performing Organization Address City/[facility]/ZIP Code Phon e Number [facility] [address] [place] [address] LABORATORY-CENTRAL 1999 LABORATORY (ABNORMAL) LACTATE SCREEN VENOUS ISTAT W PUGH (12/27/2021 12:17 AM CDT) [facility] Method Time Signature LACTATE Intermediate (A) <=2.0 12/27/2021 [facility] VENOUS SCREEN 12:28 AM LABORATORY-CE ISTAT CDT NTRAL LABORATORY LACTATE 2.3 (H) <=2.0 12/27/2021 [facility] S[facility]EN VENOUS 12:28 AM LABORATORY-CE POCT CDT NTRAL LABORATORY Specimen Anatomical Collection Method Collection Time Receive d Time (Source) Location / / Volume Laterality Blood BLOOD SPECIMEN / 12/27/2021 12:17 022 Unknown AM CDT 12:28 AM CDT Narrative [facility] LABORATORY-CENTRAL LABORAT [facility] - 12/27/2021 12:28 AM CDT Lactate screen results of 2.1-3.9 mmol/L are reported as Intermediate. Lactate screen results of 4.0 mmol/L or greater are rep orted as Critical. Elevated whole blood lactate screening results >2.0 are autom atically referred for confirmatory plasma lactate quantitation. Beto Abarca MD LABORATORY Performing Organization Address [facility]/ZIP Code Phon e Number [facility] [place] [facility] [address] [place] [address] LABORATORY-CENTRAL 1999 LABORATORY EXTRA TUBE PUGH ON ICE (12/27/2021 12:10 AM CDT) Specimen Anatomical Collection Method / Collection Time Recei annie Time (Source) Location / Volume Laterality Blood BLOOD SPECIMEN / Non-Lab 12/27/2021 12:10 022 Unknown Venipuncture / AM CDT 12:30 AM CDT Unknown Narrative [facility] LABORATORY-CENTRAL LABORAT OR - 12/27/2021 6:31 AM CDT Corrected Collection Time Only Beto Abarca MD LABORATORY Performing Organization Address City/[facility]/ZIP Code Phon e Number [facility] [place] [facility] [address] [place] [address] [place] [address] LABORATORY-CENTRAL 1999 LABORATORY (ABNORMAL) CBC WITH AUTO DIFFERENTIAL (12/27/2021 12:10 AM CDT) [facility] Method Time Signature WHITE BLOOD 13.0 (H) 4.5 - 12/27/2021 [facility] COUNT 11.0 6:26 AM CDT LABORATORY-[facility] thou/cu TRAL mm LABORATORY RED BLOOD COUNT 3.99 (L) 4.30 - 12/27/2021 [facility] 5.90 6:26 AM CDT LABORATORY-LAUR[facility] mil/cu mm TRAL LABORATORY HEMOGLOBIN 12.6 (L) 13.5 - 12/27/2021 [facility] 17.5 g/dL 6:26 AM CDT LABORATORY-[facility] TRAL LABORATORY HEMATOCRIT 38.7 37.0 - 12/27/2021 [facility] 53.0 % 6:26 AM CDT LABORATORY-[facility] TRAL LABORATORY MCV 97 80 - 100 12/27/2021 [facility] fL 6:26 AM CDT LABORATORY-[facility] TRAL LABORATORY MCH 31.6 26.0 - 12/27/2021 [facility] 34.0 pg 6:26 AM CDT LABORATORY-[facility] TRAL LABORATORY MCHC 32.6 32.0 - 12/27/2021 [facility] 36.0 g/dL 6:26 AM CDT LABORATORY-[facility] TRAL LABORATORY RDW 16.9 (H) 11.5 - 12/27/2021 [facility] 15.5 % 6:26 AM CDT LABORATORY-[facility] TRAL LABORATORY PLATELET COUNT 191 140 - 440 12/27/2021 [facility] thou/cu 6:26 AM CDT LABORATORY-[facility] mm TRAL LABORATORY MPV 9.7 6.5 - 12/27/2021 [facility] 11.0 fL 6:26 AM CDT LABORATORY-[facility] TRAL LABORATORY NRBC 0.0 % 12/27/2021 [facility] 6:26 AM CDT LABORATORY-[facility] TRAL LABORATORY ABS NRBC 0.0 thou /cu 12/27/2021 [facility] mm 6:26 AM CDT LABORATORY-[facility] TRAL LABORATORY % NEUT 87.4 % 12/27/2021 [facility] 6:26 AM CDT LABORATORY-[facility] TRAL LABORATORY % LYMPH 2.4 % 12/27/2021 [facility] 6:26 AM CDT LABORATORY-[facility] TRAL LABORATORY % MONO 9.6 % 12/27/2021 [facility] 6:26 AM CDT LABORATORY-[facility] TRAL LABORATORY % EOS 0.0 % 12/27/2021 [facility] 6:26 AM CDT LABORATORY-[facility] TRAL LABORATORY % BASO 0.2 % 12/27/2021 [facility] 6:26 AM CDT LABORATORY-[facility] TRAL LABORATORY % IMMATURE GRAN 0.4 % 12/27/2021 [facility] ([place] 6:26 AM CDT LABORATORY- [facility] OS) TRAL LABORATORY ABSOLUTE 11.4 (H) 1.7 - 7.0 12/27/2021 [facility] NEUTROPHILS thou/cu 6:26 AM CDT LABORATORY-[facility] mm TRAL LABORATORY ABSOLUTE 0.3 (L) 0.9 - 2.9 12/27/2021 [facility] LYMPHOCYTES thou/cu 6:26 AM CDT LABORATORY-[facility] mm TRAL LABORATORY ABSOLUTE 1.3 (H) <0.9 12/27/2021 [facility] MONOCYTES thou/cu 6:26 AM CDT LABORATORY-[facility] mm TRAL LABORATORY ABSOLUTE 0.0 <0.5 12/27/2021 [facility] EOSINOPHILS thou/cu 6:26 AM CDT LABORATORY-[facility] mm TRAL LABORATORY ABSOLUTE 0.0 <0.3 12/27/2021 [facility] BASOPHILS thou/cu 6:26 AM CDT LABORATORY-[facility] mm TRAL LABORATORY ABSOLUTE 0.1 <0.3 12/27/2021 [facility] IMMATURE thou/cu 6:26 AM CDT LABORATORY-[facility] GRANULOCYTES(MET mm TRAL ,MYELOS,PROS) LABORATORY Specimen Anatomical Collection Method / Collection Time Recei annie Time (Source) Location / Volume Laterality Blood BLOOD SPECIMEN / Non-Lab 12/27/2021 12:10 022 Unknown Venipuncture / AM CDT 12:21 AM CDT Unknown Narrative [facility] LABORATORY-CENTRAL LABORAT ORY - 12/27/2021 6:26 AM CDT Corrected Collection Time Only Beto Abarca MD HEMATOLOGY Performing Organization Address City/State/ZIP Code Phon e Number [facility] [address] [place] [address] LABORATORY-CENTRAL 2000 LABORATORY (ABNORMAL) PROCALCITONIN (12/27/2021 12:10 AM CDT) Analysis Performed At Patho logist Time Signature PROCALCITONIN 0.80 (H) <0.50 12/27/2021 [facility] ng/ml 6:25 AM CDT LABORATORY-[facility] TRAL LABORATORY Specimen Anatomical Collection Method / Collection Time Recei annie Time (Source) Location / Volume Laterality Blood BLOOD SPECIMEN / Non-Lab 12/27/2021 12:10 022 Unknown Venipuncture / AM CDT 12:21 AM CDT Unknown Narrative [facility] LABORATORY-CENTRAL LABORAT ORY - 12/27/2021 6:25 AM CDT Corrected Collection Time Only Procalcitonin for initial assessment of Lower Respiratory Tract Infection: Results Interpretation <0.1 ng/mL ?Antibiotics strong ly discouraged.* 0.1 - 0.25 ng/mL ??Antibiotics discourag ed. * 0.26 - 0.50 ng/mL Antibiotics encouraged . >0.50 ng/mL ? Antibiotics strongl y encouraged. *If suspicion of infection high, clinica lly unstable, or immunosuppressed: initiate antibiotics. Repeat PCT testing in 6-24 hours. Repeat PCT testing every 1-2 days whil e on antibiotics to assess response to therapy. Procalcitonin for initial assessment of severe sepsis risk: Results Interpretation < 0.5 ng/mL Associated with a low risk f or progression to severe sepsis/septic shock. > 2.0 ng/mL Associated with a high risk for progression to severe sepsis/septic shock. Note: PCT levels below 0.5 ng/mL do not exclude an infection, because localized infections may also be associated with such low levels. If the PCT measurement is done very early after the systemic infec tion process has started (usually <6 trevor rs), these values may still be low. PCT levels between 0.5 ng/mL and 2.0 ng/ mL should be interpreted in the context of the specific clinical background and conditions of the individual patient. It is recommended to re-test PCT within 6-24 hours if any concentrations <2.0 ng/mL are obtained. Beto Abarca MD SEND OUTS Performing Organization Address City/State/ZIP Code Phon e Number [facility] [address] [place] [address] LABORATORY-CENTRAL 2000 LABORATORY (ABNORMAL) PROTIME-INR (12/27/2021 12:10 AM CDT) athologist Signature INR 1.4 (H) <1.3 12/27/2021 [facility] 6:29 AM CDT [facility] PROTIME 16.2 (H) 12.0 - 13.8 12/27/2021 [facility] sec 6:29 AM CDT LABORATORY-[facility] LABORATORY Specimen Anatomical Collection Method / Collection Time Recei annie Time (Source) Location / Volume Laterality Blood BLOOD SPECIMEN / Non-Lab 12/27/2021 12:10 022 Unknown Venipuncture / AM CDT 12:21 AM CDT Unknown Narrative [facility] LABORATORY-CENTRAL LABORAT ORY - 12/27/2021 6:29 AM CDT Corrected Collection Time Only ?Therapeutic Range 2.0-3.0 for most anticoagulated patients 2.5-3.5 or 4.0 for high risk patients The INR is only used for patients on sta ble oral anticoagulant therapy. It makes no significant contribution to the diagnosis or treatment of patients whose Protime is prolonged f or other reasons. INR results are increased when heparin l evels exceed 1.0 U/mL, which corresponds to an aPTT >125 seconds if the patient is on UFH. Beto Abarca MD HEMATOLOGY Performing Organization Address City/State/ZIP Code Phon e Number [facility] [address] [place] [address] LABORATORY-CENTRAL 2000 LABORATORY (ABNORMAL) COMP METABOLIC PANEL (12/27/2021 12:10 AM CDT) athologist Signature SODIUM 131 (L) 135 - 145 12/27/2021 [facility] mmol/L 6:24 AM CDT [facility] POTASSIUM 12/27/2021 [facility] 6:24 AM CDT [facility] Comment: Canceled- Specimen Hemolyzed CHLORIDE 93 (L) 98 - 110 12/27/2021 6:24 [facility] mmol/L AM CDT LABORATORY-CENTRAL LABORATORY CO2,TOTAL 19 (L) 21 - 31 12/27/2021 6:24 [facility] mmol/L AM CDT LABORATORY-CENTRAL LABORATORY ANION GAP 19 (H) 5 - 18 12/27/2021 6[facility] GLUCOSE 137 (H) 65 - 100 12/27/2021 6:24 [facility] mg/dL AM T LABORATORY-CENTRAL LABORATORY CALCIUM 9.5 8.5 - 10.5 12/27/2021 6:24 [facility] mg/dL AM T LABORATORY-CENTRAL LABORATORY BUN 60 (H) 8 - 25 mg/dL 12/27/2021 6:24 [facility] AM T LABORATORY-CENTRAL LABORATORY CREATININE 7.95 (HH) 0.72 - 1.25 12/27/2021 6:24 [facility] TH mg/dL AM T LABORATORY-CENTRAL LABORATORY BUN/CREAT RATIO 8 (L) 10 - 12/27/2021 6:24 [facility] LABORATORY-CENTRAL LABORATORY ALBUMIN 3.7 3.2 - 4.6 12/27/2021 6:24 [facility] g/dL AM T LABORATORY-CENTRAL LABORATORY PROTEIN,TOTAL 12/27/2021 6:24 [facility] LAB[facility] Comment: Canceled- Specimen Hemolyzed GLOBULIN 12/27/2021 6:24 AM [facility] LABORATORY-CENTRAL LABORATORY Comment: Canceled- Specimen Hemolyzed A/G RATIO 12/27/2021 6:24 AM [facility] LABORATORY-CENTRAL LABORATORY Comment: Canceled- Specimen Hemolyzed BILIRUBIN,TOTAL 0.7 0.2 - 1.2 mg/dL 12/27/2021 6:24 AM [facility] LABORATORY-CENTRAL LABORATORY ALK PHOSPHATASE 99 50 - 136 IU/L 12/27/2021 6:24 AM [facility] LABORATORY-CENTRAL LABORATORY ALT (SGPT) 28 8 - 45 IU/L 12/27/2021 6:24 AM [facility] LABORATORY-CENTRAL LABORATORY AST (SGOT) 12/27/2021 6:24 AM [facility] LABORATORY-CENTRAL LABORATORY Comment: Canceled- Specimen Hemolyzed eGFR 7 (L) >90 mL/min/1.73m2 12/27/2021 6:24 AM [facility] LABORATORY-CENTRAL L ABORATORY Comment: As of 2021, eGFR is calcu lated by the CKD-EPI creatinine equation without race adjustment. eGFR can be inf luenced by muscle mass, exercise, and diet. The reported eGFR is an estimation only and is only applicable if the renal function is stable. Specimen Anatomical Collection Method / Collection Time Recei annie Time (Source) Location / Volume Laterality Blood BLOOD SPECIMEN / Non-Lab 12/27/2021 12:10 022 Unknown Venipuncture / AM CDT 12:21 AM CDT Unknown Narrative [facility] LABORATORY-CENTRAL LABORAT ORY - 12/27/2021 6:24 AM CDT Corrected Collection Time Only Beto Abarca MD CHEMISTRY Performing Organization Address City/State/ZIP Code Phon e Number [facility] [address] [place] [address] LABORATORY-CENTRAL 2000 LABORATORY SCAN-RADIOLOGY REPORT (12/22/2021 12:00 AM CDT) Narrative This result has an attachment that is no t available. Scanner OTHER (ABNORMAL) LIPID PANEL W REFLEX MEASURED LDL (11/30/2021 12:45 PM CDT) [facility] gist Method Time Signature CHOLESTEROL,TOTAL 94 (L) 100 - 199 12/01/2021 [facility] mg/dL 10:04 AM CDT LABORATORY-[facility] TRAL LABORATORY TRIGLYCERIDES 56 <150 12/01/2021 [facility] mg/dL 10:04 AM CDT LABORATORY-[facility] TRAL LABORATORY HDL CHOLESTEROL 33 (L) >40 mg/dL 12/01/2021 [facility] 10:04 AM CDT LABORATORY-[facility] TRAL LABORATORY NON-HDL 61 <145 12/01/2021 [facility] CHOLESTEROL mg/dl 10:04 AM CDT LABORATORY-[facility] TRAL LABORATORY CHOL/HDL RATIO 2.85 <4.50 12/01/2021 [facility] 10:04 AM CDT LABORATORY-[facility] TRAL LABORATORY [...] Organization Address City/State/ZIP Code Phon e Number [facility] [address] [place] [address] LABORATORY-CENTRAL 2000 LABORATORY ANTI HCV (11/30/2021 12:45 PM CDT) [facility] Method Time Signature HEPATITIS C Non-Reacti Non-Reacti [...] Leos MD SEND OUTS Performing Organization Address City/State/ZIP Code Phon e Number [facility] [address] [place] [address] LABORATORY-CENTRAL 2000 LABORATORY URIC ACID (11/30/2021 12:45 PM CDT) athologist Signature URIC ACID 3.8 3.5 - 7.2 12/01/2021 [facility] mg/dL 10:04 AM CDT LABORATORY-CENTR AL LABORATORY Specimen Anatomical Collection Method / Collection Time Recei annie Time (Source) Location / Volume Laterality Blood BLOOD SPECIMEN / Venipuncture / 11/30/2021 12:45 11/30 1:44 Unknown Unknown PM CDT PM CDT Liban Leos MD CHEMISTRY Performing Organization Address City/[facility]/ZIP Code Phon e Number [facility] [address] [place] [address] LABORATORY-CENTRAL 2000 LABORATORY HEMOGLOBIN A1C MONITORING (POCT) (11/30/2021 12:45 PM CDT) athologist Signature HEMOGLOBIN A1C 5.7 <=6.4 % 11/30/2021 [facility] MONITORING 1:02 PM CDT [facility] Specimen Anatomical Collection Method / Collection Time Recei annie Time (Source) Location / Volume Laterality Blood BLOOD SPECIMEN / Venipuncture / 11/30/2021 12:45 11/30 1:02 Unknown Unknown PM CDT PM CDT Narrative [facility] - 2021 1:02 PM CDT ? [...] Organization Address City/State/ZIP Code Phon e Number [facility] [address] [place] [address] SCAN-CT INTERPRETATION (10/08/2021 12:00 AM CDT) Narrative This result has an attachment that is no t available. Scanner OTHER from Last 3 Months Additional Health Concerns Infection Onset Date Last Indicated Resolved Time RESPIRATORY SYNCYTIAL VIRUS (RSV)Comment: 12/23/20212021 Added from external infection. Insurance Payer Benefit Plan / Subscriber ID Effective Dates Phone Addre ss Type Group MEDICARE PART B MEDICARE PART B [id number] 2011-Sameer ATTN: CLAIMS - HB USE ONLY HB ONLY t [address] [facility] [address] BLUE CROSS BLUE CROSS [id number] 2018-Sameer [address] MEDICARE [place], [place] [id number] Advance Directives Latest Code Status on File Code Status Date Activated Date Inactivated Comments Full Code 12/27/2021 3:36 AM Code Status Discussion: Reviewed Preferences Full Code 07/21/2020 9:53 AM 07/21/2020 9:23 PM Code Status Discussion: Not Discussed Full Code 04/25/2019 10:38 PM 04/29/2019 6:50 PM Full Code 03/05/2019 4:04 PM 03/12/2019 4:23 PM Code Status Discussion: Discussed Full Code 10/06/2008 1:41 AM 10/20/2008 1:45 PM Care Teams Admitting Supervisor Relationship Specialty Start Date End Date Liban Leos MD PCP - General Family Practice 07/17/20 [address] [place] [address]
== END 2021-12-26 22:58 | disposition home or self-care (01) ==
LOC: AMB 01-04 06:38
PROVIDERS: PCP Family Medicine; Visit Provider Family Medicine
DX: R06.09 Other forms of dyspnea (principal); J22 Unspecified acute lower respiratory infection
CPT/HCPCS: A0425; A0427

== ENCOUNTER 2022-02-24 13:17 | Outpatient (CLI) | payer MEDICARE, SELFPAY ==
--- OUTSIDE RECORDS SUMMARY | 2022-02-24 13:21 | XMS_ITS | Clinical Summary ---
:1945 Author Organization [place] Address [address] [place] [address] Care Team Providers Name Role Phone Liban [...] 20 MG tablet mouth daily fluticasone (FLONASE) [place] 1 spray in 0 12/15/2020 Active 50 [...] Date Type Specialty Care Team Description 12/23/2021 - Emergency Med Surg Nakita Pruitt MD RSV bronchitis (Primary Dx); 12/25/2021 Carmella Garcia, Other h ypervolemia; DO NSTEMI (non-ST elevated myocardial infar ction) (H); Dallin Farah, ESRD (en d stage renal disease) on dialysis (H) DO 12/23/2021 Travel from Last 3 Months Social History [...] 08/29/2008, 03/20/1997 (2 - Td or Tdap) HEPATITIS B IMMUNIZATION (2 10/29/2020 10/30/2019, 07/03/19 20, of 2 - Risk Dialysis 06/03/2019, Additional Recombivax 3-dose series) history exists PHQ-2 (once per calendar 03/20/2021 year) COVID-19 Vaccine (5 - 12/10/2021 10/15/2021, 01/29/2021, Booster for Moderna series) 05/11/2020, Addition al history exists MEDICARE ANNUAL WELLNESS 12/15/2021 12/15/2020 VISIT A1C 03/01/2022 11/30/2021, 05/18/2021 BMP 04/20/2022 01/18/2022, 12/25/2021, 12/24/2021, Additional history exists HEMOGLOBIN 07/18/2022 01/18/2022, 12/24/2021, 12/23/2021, Additional history exists Pneumococcal Vaccine: 65+ Completed [...] topic Procedures Procedure Name Priority Date/Time Associated Diagnosis Comme nts TRIP CHARGE - LAB ONLY Routine 01/18/2022 5:13 Anemia, unspeci fied AM CDT CBC WITH PLATELETS Routine 01/18/2022 5:13 Anemia, unspecified Results for this AM CDT procedure are i n the results section. BASIC METABOLIC PANEL Routine 01/18/2022 5:13 Anemia, unspecif ied Results for this AM CDT procedure are i n the results section. QUANTIFERON-TB GOLD Routine 01/17/2022 5:16 Encounter for Resu lts for this PLUS AM CDT screening for procedure are in respiratory the results tuberculosis section. TRIP CHARGE - LAB ONLY Routine 01/17/2022 5:16 Encounter for AM CDT screening for respiratory tuberculosis QUANTIFERON TB GOLD Routine 01/17/2022 5:16 Encounter for Resu lts for this PLUS AM CDT screening for procedure are in respiratory the results tuberculosis section. QUANTIFERON TB GOLD Routine 01/17/2022 5:16 Encounter for Resu lts for this PLUS PURPLE TUBE AM CDT screening for procedure are in respiratory the results tuberculosis section. QUANTIFERON TB GOLD Routine 01/17/2022 5:16 Encounter for Resu lts for this PLUS YELLOW TUBE AM CDT screening for procedure are in respiratory the results tuberculosis section. QUANTIFERON TB GOLD Routine 01/17/2022 5:16 Encounter for Resu lts for this PLUS GREEN TUBE AM CDT screening for procedure a re in respiratory the results tuberculosis section. QUANTIFERON TB GOLD Routine 01/17/2022 5:16 Encounter for Resu lts for this PLUS RICH TUBE AM CDT screening for procedure ar e in respiratory the results tuberculosis section. EXTRA PURPLE TOP TUBE Routine 12/25/2021 7:34 Res ults for this AM CDT procedure are i n the results section. EXTRA TUBE Routine 12/25/2021 7:34 Results for this AM CDT procedure are i n the results section. BASIC METABOLIC PANEL Routine 12/25/2021 7:34 Res ults for this AM CDT procedure are i n the results section. TROPONIN T, HIGH Timed 12/24/2021 6:30 Results for this SENSITIVITY AM CDT procedure are i n the results section. CBC WITH PLATELETS Routine 12/24/2021 6:30 Result s for this AM CDT procedure are i n the results section. BASIC METABOLIC PANEL Routine 12/24/2021 6:30 Res ults for this AM CDT procedure are i n the results section. GLUCOSE BY METER Routine 12/24/2021 4:36 Results for this AM CDT procedure are i n the results section. TROPONIN T, HIGH STAT 12/24/2021 2:05 Results for this SENSITIVITY AM CDT procedure are i n the results section. INFLUENZA A/B & STAT 12/23/2021 10:53 Results for this SARS-COV2 PCR PM CDT procedure are in MULTIPLEX the results section. CT CHEST PULMONARY STAT 12/23/2021 9:50 Result s for this EMBOLISM W CONTRAST PM CDT procedur e are in the results section. XR CHEST 2 VIEWS STAT 12/23/2021 8:06 Results for this PM CDT procedure are i n the results section. CBC WITH PLATELETS & STAT 12/23/2021 7:51 Resu lts for this DIFFERENTIAL PM CDT procedure are i n the results section. NT PROBNP INPATIENT STAT 12/23/2021 7:51 Resul ts for this PM CDT procedure are i n the results section. TROPONIN T, HIGH STAT 12/23/2021 7:51 Results for this SENSITIVITY PM CDT procedure are i n the results section. EXTRA RED TOP TUBE STAT 12/23/2021 7:51 Result s for this PM CDT procedure are i n the results section. EXTRA BLUE TOP TUBE STAT 12/23/2021 7:51 Resul ts for this PM CDT procedure are i n the results section. CBC WITH PLATELETS AND STAT 12/23/2021 7:51 Re sults for this DIFFERENTIAL PM CDT procedure are i n the results section. EXTRA TUBE STAT 12/23/2021 7:51 Results for this PM CDT procedure are i n the results section. COMPREHENSIVE STAT 12/23/2021 7:51 Results for this METABOLIC PANEL PM CDT procedure ar e in the results section. EKG 12-LEAD, TRACING STAT 12/23/2021 7:33 Resu lts for this ONLY PM CDT procedure are i n the results section. from Last 3 Months Results Trip Charge - LAB ONLY (01/18/2022 5:13 AM CDT)Only the most recent of2 results within the time period is included. Specimen Anatomical Collection Method Collection Time Receive d Time (Source) Location / / Volume Laterality Other TOPOGRAPHY UNKNOWN Billing only / 01/18/2022 5:13 AM 1 03/20/2021 7:54 / Unknown Unknown CDT AM CDT Ashtyn Vogt MD LAB CHARGE PERFORMABLES Performing Organization Address City/State/ZIP Code Phon e Number [facility] [address] [address] (ABNORMAL) Basic metabolic panel (01/18/2022 5:13 AM CDT)Only the most recent of 3 resultswithin the time period is included. [facility] Method Time Signature Sodium 136 136 - 145 01/18/2022 [facility] mmol/L 10:51 AM CDT Potassium 5.7 (H) 3.4 - 5.3 01/18/2022 [facility] mmol/L 10:51 AM CDT Chloride 94 (L) 98 - 107 01/18/2022 [facility] mmol/L 10:51 AM CDT Carbon Dioxide 29 22 - 29 01/18/2022 [facility] (CO2) mmol/L 10:51 AM CDT Anion Gap 13 7 - 15 01/18/2022 [facility] mmol/L 10:51 AM CDT Urea Nitrogen 52.0 (H) 8.0 - 23.0 01/18/2022 [facility] mg/dL 10:51 AM CDT Creatinine 5.14 (H) 0.67 - 01/18/2022 [facility] 1.17 mg/dL 10:51 AM CDT Calcium 10.5 (H) 8.8 - 10.2 01/18/2022 [facility] mg/dL 10:51 AM CDT Glucose 98 70 - 99 01/18/2022 [facility] mg/dL 10:51 AM CDT GFR Estimate 11 (L) >60 01/18/2022 [facility] mL/min/1.7 10:51 AM CDT 3m2 Comment: Effective March 09, 2021 eGF Rcr in adults is calculated using the 2020 CKD-EPI creatinine equation which includ es age and gender (Signalman et al., NEJM, DOI: 10.1056/KDSCdv7009928) Specimen Anatomical Collection Method / Collection Time Recei annie Time (Source) Location / Volume Laterality Blood STRUCTURE OF RIGHT Venipuncture / 01/18/2022 5:13 03/2021 7:54 UPPER LIMB / Unknown AM CDT AM CDT Unknown Ashtyn Vogt MD LAB - BLOOD ORDERABLES Performing Organization Address City/State/ZIP Code Phon e Number [facility] [place] [address] Lab [address] [facility] [address] Building, Room 3-580 (ABNORMAL) CBC with platelets (01/18/2022 5:13 AM CDT)Only the most recent of2 resultswithin the time period is included. [facility] gist Method Time Signature WBC Count 7.2 4.0 - 11.0 01/18/2022 [facility] 10e3/uL 10:48 AM CDT RBC Count 2.84 (L) 4.40 - 01/18/2022 [facility] 5.90 10:48 AM CDT 10e6/uL Hemoglobin 8.6 (L) 13.3 - 01/18/2022 [facility] 17.7 g/dL 10:48 AM CDT Hematocrit 28.9 (L) 40.0 - 01/18/2022 [facility] 53.0 % 10:48 AM CDT MCV 102 (H) 78 - 100 01/18/2022 [facility] fL 10:48 AM CDT MCH 30.3 26.5 - 01/18/2022 [facility] 33.0 pg 10:48 AM CDT MCHC 29.8 (L) 31.5 - 01/18/2022 [facility] 36.5 g/dL 10:48 AM CDT RDW 17.4 (H) 10.0 - 01/18/2022 [facility] 15.0 % 10:48 AM CDT Platelet Count 177 150 - 450 01/18/2022 [facility] 10e3/uL 10:48 AM CDT Specimen Anatomical Collection Method / Collection Time Recei annie Time (Source) Location / Volume Laterality Blood STRUCTURE OF RIGHT Venipuncture / 01/18/2022 5:13 03/2021 7:54 UPPER LIMB / Unknown AM CDT AM CDT Unknown Ashtyn Vogt MD LAB - BLOOD ORDERABLES Performing Organization Address City/State/ZIP Code Phon e Number [facility] [place] [address] Lab [address] [facility] [address] Building, Room 3-580 (ABNORMAL) Quantiferon TB Gold Plus (01/17/2022 5:16 AM CDT) [facility] Method Time Signature Quantiferon-T Indeterminate Negative 01/18/2022 [facility] Y B Gold Plus (A) 2:28 PM CDT CORE/PROT/EN DO Comment: Unable to evaluate interferon gamma resp onse due to a low mitogen value, which may be the result o f insufficient lymphocytes, reduced lymphocyte activity due to improper spec imen handling, or inability of the patient's lymphocytes to generate interf candelario gamma. TB1 Ag minus Nil -0.01 IU/mL 01/18/2022 2:28 PM CDT SPECIALTY Value CORE/PROT/ENDO TB2 Ag minus Nil -0.01 IU/mL 01/18/2022 2:28 PM CDT [facility] SPECIAL[facility] Value CORE/PROT/ENDO Mitogen minus Nil 0.42 IU/mL 01/18/2022 2:28 PM CDT [facility] SPECIAL[facility] Result CORE/PROT/ENDO Nil Result 0.05 IU/mL 01/18/2022 2:28 PM CDT SPE CIALTY CORE/PROT/ENDO Specimen Anatomical Collection Method / Collection Time Recei annie Time (Source) Location / Volume Laterality Blood STRUCTURE OF RIGHT Venipuncture / 01/17/2022 5:16 12/20 8:45 UPPER LIMB / Unknown AM CDT AM CDT Unknown Ashtyn Vogt MD LAB - MICRO GENERAL ORDERABL ES Performing Organization Address City/State/ZIP Code Phon e Number SPECIALTY CORE/PROT/ENDO [facility] [place] [address] Core/Prot/Endo [address] [facility] [address] [facility], Room 3-580 Quantiferon TB Gold Plus Purple Tube (01/17/2022 5:16 AM CDT) P athologist Signature Quantiferon 0.47 IU/mL 01/18/2022 [facility] Mitogen 12:56 PM CDT CORE/PROT/ENDO Specimen Anatomical Collection Method / Collection Time Recei annie Time (Source) Location / Volume Laterality Blood STRUCTURE OF RIGHT Venipuncture / 01/17/2022 5:16 12/20 8:45 UPPER LIMB / Unknown AM CDT AM CDT Unknown Ashtyn Vogt MD LAB - MICRO GENERAL ORDERABL ES Performing Organization Address City/State/ZIP Code Phon e Number [facility] CORE/PROT/ENDO [facility] [place] [place] [address] Core/Prot/Endo [address] [facility] [address] [facility], Room 3-580 Quantiferon TB Gold Plus Yellow Tube (01/17/2022 5:16 AM CDT) P athologist Signature Quantiferon TB2 0.04 01/18/2022 [facility] Tube 12:57 PM CDT CORE/PROT/ENDO Specimen Anatomical Collection Method / Collection Time Recei annie Time (Source) Location / Volume Laterality Blood STRUCTURE OF RIGHT Venipuncture / 01/17/2022 5:16 12/20 8:45 UPPER LIMB / Unknown AM CDT AM CDT Unknown Ashtyn Vogt MD LAB - MICRO GENERAL ORDERABL ES Performing Organization Address City/[facility]/ZIP Code Phon e Number [facility] SPECIALTY CORE/PROT/ENDO [place]ty [place], [place] [address] Core/Prot/Endo [address] [facility], Room 3-580 Quantiferon TB Gold Plus Green Tube (01/17/2022 5:16 AM CDT) P athologist Signature Quantiferon TB1 0.04 IU/mL 01/18/2022 [facility] Tube 12:57 PM CDT CORE/PROT/ENDO Specimen Anatomical Collection Method / Collection Time Recei annie Time (Source) Location / Volume Laterality Blood STRUCTURE OF RIGHT Venipuncture / 01/17/2022 5:16 12/20 8:45 UPPER LIMB / Unknown AM CDT AM CDT Unknown Ashtyn Vogt MD LAB - MICRO GENERAL ORDERABL ES Performing Organization Address City/State/ZIP Code Phon e Number [facility] CORE/PROT/ENDO [facility] [place] [address] Core/Prot/Endo [address] [facility] [address] Building, Room 3-580 Quantiferon TB Gold Plus Rich Tube (01/17/2022 5:16 AM CDT) athologist Signature Quantiferon Nil 0.05 IU/mL 01/18/2022 [facility] Tube 12:57 PM CDT CORE/PROT/ENDO Specimen Anatomical Collection Method / Collection Time Recei annie Time (Source) Location / Volume Laterality Blood STRUCTURE OF RIGHT Venipuncture / 01/17/2022 5:16 12/20 8:45 UPPER LIMB / Unknown AM CDT AM CDT Unknown Ashtyn Vogt MD LAB - MICRO GENERAL ORDERABL ES Performing Organization Address City/State/ZIP Code Phon e Number SPECIALTY CORE/PROT/ENDO [facility] [place] [address] Core/Prot/Endo [address] [facility] [address] [facility], Room 3-580 Extra Purple Top Tube (12/25/2021 7:34 AM CDT) athologist Signature Hold Specimen JIC 12/25/2021 [facility] 9:04 AM CDT Specimen Anatomical Collection Method / Collection Time Recei annie Time (Source) Location / Volume Laterality Blood STRUCTURE OF LEFT Venipuncture / 12/25/2021 7:34 12/25 7:55 HAND / Unknown Unknown AM CDT AM CDT Dallin Farah DO LAB - BLOOD ORDERABLES Performing Organization Address City/State/ZIP Code [place] [address] Care Lab [address] Lab (1st floor, no room number) (ABNORMAL) Troponin T, High Sensitivity (12/24/2021 6:30 AM CDT)Only the most recent of3 resultswithin the time period is included. [facility] gist Method Time Signature Troponin T, High [...] LAB - BLOOD ORDERABLES Performing Organization Address City/[facility]/ZIP Code [place] [address] Care Lab [address] Lab (1st floor, no room number) (ABNORMAL) Glucose by meter (12/24/2021 4:36 AM CDT) P athologist Signature GLUCOSE BY 128 (H) 70 - 99 12/24/2021 [facility] METER POCT mg/dL 4:43 AM CDT POC Specimen (Source) Anatomical Collection Method Collection Time Re ceived Time Location / / Volume Laterality Blood, Capillary BLOOD SPECIMEN / 12/24/2021 4:36 09/2021 4:43 Unknown AM CDT AM CDT Dallin Farah DO LAB - BEAKER POCT Performing Organization Address City/State/ZIP Code Phon [place] [address] Care Lab [address] Lab (1st floor, no room number) (ABNORMAL) Symptomatic; Yes; 12/20/2021 Influenza A/B & SARS-CoV2 (COVID-19) Virus PCR Multiplex Nasopharyngeal (12/23/2021 10:53 PM CDT) Patholo gist Method Time Signature Influenza A Negative Negative [...] PM CDT 10:57 PM CDT Unknown Narrative LABORATORY - 12/23/2021 11:43 PM CDT Testing was performed using the Xpert Xpress CoV2/Flu/RSV Assay on the [employer] GeneXpert Instrument. This test should be ordered [...] management. This test was validated by the [facility]. These laboratories are certified under the Clinical Laboratory Improvement Amendments of 198 8 (CLIA-88) as qualified to perform high complexity laboratory testing. Nakita Pruitt MD LAB - MICRO GENERAL ORDERABL ES Performing Organization Address City/State/[place] [phone] Care Lab [address] [facility] Lab (1st floor, no room number) CT [...] CT CHEST PULMONARY EMBOLISM W CONTRAST [facility] DATE/TIME: 12/23/2021 9:50 PM INDICATION: Worsening [...] CHEST PULMONARY EMBOLISM W CONT RAST LOCATION: [facility] DATE/TIME: 12/23/2021 9:50 PM INDICATION: Worsening [...] CDT EXAM: XR CHEST 2 VIEWS LOCATION: [facility] DATE/TIME: 12/23/2021 8:06 PM INDICATION: sob COMPARISON: None. Procedure Note Higinio Melchor MD - 12/23/2021Formatt ing of this note might be different from the original. EXAM: XR CHEST 2 VIEWS LOCATION: [facility] DATE/TIME: 12/23/2021 8:06 PM INDICATION: sob COMPARISON: None. IMPRESSION: Status post median sternotom y and valve replacement. Heart size is enlarged. Prominence of central pulmonary vasculature without overt failure or lobar consolidation. No effusions. Calcified granulomas bilaterally. No acute bony abnormality. Nakita Pruitt MD [facility] ORDER [place] Extra Red Top Tube (12/23/2021 7:51 PM CDT) athologist Signature Hold Specimen JIC 12/23/2021 LABORATORY 9:05 PM CDT Specimen Anatomical Collection Method / Collection Time Recei annie Time (Source) Location / Volume Laterality Blood STRUCTURE OF RIGHT Venipuncture / 12/23/2021 7:51 10/0 08/2021 7:56 UPPER LIMB / Unknown PM CDT PM CDT Unknown Nakita Pruitt MD LAB - BLOOD ORDERABLES Performing Organization Address City/State/ZIP Code [place] [address] Care Lab [address] Lab (1st floor, no room number) [...] LAB - BLOOD ORDERABLES Performing Organization Address City/[facility]/ZIP Code [place] [address] Care Lab [address] Lab (1st floor, no room number) (ABNORMAL) CBC with platelets and differential (12/23/2021 7:51 PM CDT) Patholo gist Method Time Signature [...] Unknown PM CDT PM CDT Unknown Nakita S Edmond MD LAB - BLOOD ORDERABLES Performing Organization Address City/[facility]/ZIP Code [place] [phone] Care Lab [address] Lab (1st floor, no room number) (ABNORMAL) Nt probnp inpatient (BNP) (12/23/2021 7:51 PM CDT) [facility] Method Time Signature N terminal Pro >70,000 [...] LAB - BLOOD ORDERABLES Performing Organization Address [facility]/ZIP Code [place] [phone] Care Lab [address] Lab (1st floor, no room number) (ABNORMAL) Comprehensive metabolic panel (12/23/2021 7:51 PM CDT) [facility] Method Time Signature Sodium 134 (L) 136 [...] CDT mg/dL Calcium 10.2 8.8 - 12/23/2021 LABORATORY 10.2 8:18 PM CDT mg/dL Glucose [...] and gender (Brigette et al., NEJM, DOI: 10.1056/[id number]) Specimen Anatomical Collection Method / Collection Time Recei annie Time (Source) Location / Volume Laterality Blood STRUCTURE OF RIGHT Venipuncture / 12/23/2021 7:51 10/0 08/2021 7:56 UPPER LIMB / Unknown PM CDT PM CDT Unknown Nakita Pruitt MD LAB - BLOOD ORDERABLES Performing Organization Address City/State/ZIP Code [place] [phone] Care Lab [address] Lab (1st floor, no room number) EKG 12 lead (12/23/2021 7:33 PM CDT) Component Value Ref Range Test Analysis Performed Pathologis t Method Time At Signature Systolic Blood mmHg RADIOLOGY Pressure RESULTS Diastolic Blood mmHg RADIOLOGY Pressure RESULTS Ventricular Rate 99 BPM RADIOLOGY RESULTS Atrial Rate 87 BPM RADIOLOGY RESULTS TN Interval ms RADIOLOGY RESULTS QRS Duration 120 ms RADIOLOGY RESULTS QT 378 ms RADIOLOGY RESULTS QTc 485 ms RADIOLOGY RESULTS P [place] degrees RADIOLOGY RESULTS R AXIS 134 degrees RADIOLOGY RESULTS T [place] 8 degrees RADIOLOGY RESULTS Interpretation Atrial fibrillation [...] City/State/ZIP Code Phon e Number RADIOLOGY RESULTS from Last 3 Months Insurance Payer Benefit Plan / Subscriber ID Effective Dates Phone Addre ss Type Group BCBS [facility] MEDICARE [id number] 2018-Presen [phone] [address] [address] Medicare ADVANTAGE t [address] [place] [address] BCBS BCBS MEDICARE [id number] 2018-Presen [phone] [address] [address] Medicare ADVANTAGE t 0 [place] [address] Advance Directives For more information, please contact: [phone] Latest Code Status on File Code Status [...] 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
--- OUTSIDE RECORDS SUMMARY | 2022-02-24 13:21 | XMS_ITS | Encounter Summary ---
:1945 Author Organization [facility] Address [address] [place] [address] Care Team Providers Name Role Phone Liban [...] Volume overload 3 Medical Surgical [address] [place], [place] [address] Phone: Fax: Referral ID Status Reason Start Date Expiration Date Visits Requ ested Visits Authorized [id number] 1 1 Encounter Details Date Type Department Care Team Description 12/23/2021 - Emergency [facility] Nakita Pruitt MD [facility] [address] [place], [place] [phone] RSV bronchitis (Primary Dx); 12/25/2021 [facility] 3 Medical Carmella Garcia DO [facility] [address] [place] [address] Other hypervolemia; Surgical Dallin Farah DO [address] [place], [place] [id number] NSTEMI (non-ST elevated myocardial infar ction) (H); [address] ESRD (end stage renal diseas e) on dialysis (H) [place] [address] Social History Tobacco Use Types [...] Vinson MD - 12/25/2021 2:08 PM CDT [facility] Discharge Summary Admit date: 12/23/2021 Discharge date and time: 12/25/21 1409 Discharge Physician: Mino Wolf MD Primary care provider: Liban Leos Primary Discharge Diagnosis Acute RSV Infection Secondary Diagnoses ESRD HD MWF Hyperkalemia Hyponatremia Type II WA pAF PUD Summary of Hospital Stay 76M [...] Commonly known as: FLONASE Dose: 1 spray [place] 1 spray in nostril daily Refills: 0 [...] your medicines These medications were sent to [id number] - [place], [place] - [address] [facility] [address] [facility] [phone] ?? albuterol 108 (90 Base) MCG/ACT inhaler ?? guaiFENesin 600 MG 12 hr tablet Discharge diet: Renal Discharge activity: Activity as tolerated Discharge follow-up: Follow up with primary care provider within one week or earlier if symptoms return or gets worse. Follow up with managing consultant clinical professor as instructed. Pending Results Unresulted Labs Ordered [...] Inhale 2 puffs into 18 g 1 2 HFA/PROVENTIL the lungs every 4 HFA/VENTOLIN HFA) 108 (90 hours as needed for Base) MCG/ACT shortness of breath / inhalerIndications: RSV dyspnea or wheezing bronchitis allopurinol (ZYLOPRIM) Take 100 mg by mouth 0 100 MG tablet daily atorvastatin (LIPITOR) 20 Take 20 mg by mouth 0 0 12/15/2020 MG tablet daily fluticasone (FLONASE) 50 [place] 1 spray in 0 12/15 MCG/ACT nasal [...] Return to near baseline physical activity: No Occupational Hygienist Nurse Safe discharge environment identified: Yes Barriers [...] Return to near baseline physical activity: No Occupational Hygienist Nurse Safe discharge environment identified: Yes Barriers [...] checked every 4 hours. Outpatient Dialysis at [facility] treatment report given to Geovanna Zacarias RN regarding 4L of fluid removed, last BP of 95/58 Please remove patient dressing on AVF and AVG needle sites 24 hours after dialysis. If leaking occurs please apply a Band-Aid. Phillip Vinson MD - 12/24/2021 11:02 AM CDT [facility] Hospitalist Progress Note Assessment & Plan ASSESSMENT: 76M with hx of ESRD HD MWF, pAF, and PUD presents with SOB and malaise and found to have RSV infection. PLAN: -Acute RSV: Supportive care w/ scheduled nebs and PRN cough and congestion medications. -ESRD HD MWF w/ Hyperkalemia and Hyponatremia: Nephrology consulted for HD needs while in the hospital. -Type II WA: 2/2 the above. Tx per above. -pAF: [...] Farah DO - 12/24/2021 12:26 AM CDT [facility] Hospitalist H&P Name: Jonatan Mejia Date of [...] pulmonary disease, diabetes and hyperlipidemia, presents to [facility] for evaluation of cough and shortness ofbreath, [...] previous GI bleeding. We will continue his ihsce-zf-ddoeuzmdh Toprol XL. 5. GERD, peptic ulcer disease, [...] chronic anemia and GERD, who presents to [facility] for evaluation of shortness of breath. History [...] COVID. He was evidently seen in the [place] [facility] and had a chest x-ray, [...] ESOPHAGOGASTRODUODENOSCOPY biopsies; Surgeon: Joce Zamudio MD; Location: [facility] OR Social History: Social History Tobacco Use [...] Medication Sig Last Dose Taking? Auth Provider Detention End Date allopurinol (ZYLOPRIM) 100 MG tablet Take 100 mg by mouth daily Unknown, Entered By History atorvastatin (LIPITOR) 20 MG tablet Take 20 mg by mouth daily Unknown, Entered By History Yes fluticasone (FLONASE) 50 MCG/ACT nasal spray [place] 1 spray in nostril daily Unknown, Entered [...] Narrative EXAM: XR CHEST 2 VIEWS LOCATION: [facility] DATE/TIME: 12/23/2021 8:06 PM INDICATION: sob COMPARISON: None. Impression IMPRESSION: Status post median sternotomy and valve replacement. Heart size is enlarged. Prominenceof central pulmonary vasculature without overt failure or lobar consolidation. No effusions. Calcified granulomas bilaterally. No acute bony abnormality. CT Chest Pulmonary Embolism w Contrast Narrative EXAM: CT CHEST PULMONARY EMBOLISM W CONTRAST LOCATION: [facility] DATE/TIME: 12/23/2021 9:50 PM INDICATION: Worsening [...] left pleural effusion. Dallin Farah DO MPH [facility] Hospitalist [facility] [place] [address] 12/24/2021 MT: [facility] Name: JONATAN MEJIA Account: [id number] : 1945 Admitted: 12/23/2021 Document: [id number] documented in this encounter Consult Notes Lior Schneider MD - 12/24/2021 2:13 PM CDTAssociated Order(s): NEPHROLOGY IP CONSULT [facility] RENAL CONSULTATION NOTE REFERRING MD: Dr. Farah [...] = reaction, tdc = tunneled dialysis catheter, bar captain = prior to admission, hd = hemodialysis, pd = peritoneal dialysis, hhd = home hemodialysis, edw = estimated dry wt HPI: Jonatan Mejia is a 76 year old male c ESKD 2 DM2 who dialyses MWF via a LAF at the [facility] under the care of Dr. Pompa ([facility]) and was admitted on 12/23/2021 c sob and cough and found to have an RSV infxn. Pt developed a cough earlier this wk that worsened progressively. It was bad enough on Weds at HD that he had to terminate [...] thrill/bruit LABS: CBC RESULTS: Recent Labs Lab 12/24/2130 12/23/211950 WBC 7.5 7.2 RBC 3.76* 3.73* [...] medications, labs and imaging. Lior Schneider MD [facility] - Nephrology [phone] documented in this encounter ED Notes Layne Hernandez RN - 12/24/2021 2:23 AM CDT [facility] ED Nurse Handoff Report Jonatan Mejia is [...] Assist. Lift room needed: No. Bariatric: No Assistant Construction Superintendent Needed: No Isolation: Yes. Infection: Not Applicable [...] spray 2 spray (2 sprays Nasal Given 12/24/212353) Drips infusing: No For the majority of [...] of breath since Monday Was seen in [place] ER yesterday. Was given IV steroids, nebulizer, [...] because of his dyspnea and went to [place] emergency department. Per his report, they did [...] for discharge by consultants (if involved): Yes Occupational Hygienist Nurse Safe discharge environment identified: Yes Barriers [...] Return to near baseline physical activity: No Occupational Hygienist Nurse Safe discharge environment identified: No Barriers [...] indicated - Interpretation of cardiac rhythm per lamination technician: A-Fib CVR 4. Cleared by Consultants (if applicable):No 5. Return to near baseline physical activity: No Occupational Hygienist Nurse Safe discharge environment identified: Yes Barriers [...] Chaudhari RN - 12/24/2021 7:43 PM CDT RN([phone])- Did not see/assess patient during shift as he was under the care of the forming department supervisor. Returned to unit at 1910. Plan [...] GI: was nauseated during breakfast, Zofran given. [place] better after that. Not much appetite today [...] status for this patient is complete. See [facility] admission navigator for allergy information, prior to admission medications and immunization status. Medication history interview done, indicate source(s): Patient Medication history resources (including written lists, pill bottles, clinic record): Home med list, [facility] dispense records Pharmacy: [facility] Changes made to MEDICATION TECH medication list: Added: none Changed: noted that pt normally takes Renvela only twice daily, prescribed as TID Reported as Not Taking: none Removed: none Actions taken by pharmacist (provider contacted, etc):None Additional medication history information:None Medication reconciliation/reorder completed by provider prior to medication history? Y (Y/N) Prior to Admission medications Medication Sig Last Dose Taking? Auth Provider Detention End Date allopurinol (ZYLOPRIM) 100 MG tablet Take 100 mg by mouth daily 12/22/2021 Yes Unknown, Entered By History atorvastatin (LIPITOR) 20 MG tablet Take 20 mg by mouth daily 12/22/2021 Yes Unknown, Entered By History Yes fluticasone (FLONASE) 50 MCG/ACT nasal spray [place] 1 spray in nostril daily 12/22/2021 Yes [...] By History Plan of Care - Layne Henrandez RN - 12/24/2021 5:23 AM CDT PRIMARY [...] Return to near baseline physical activity: Yes Occupational Hygienist Nurse Safe discharge environment identified: Yes Barriers [...] AM CDT) P athologist Signature Hold Specimen JI 12/25/2021 [facility] 9:04 AM CDT Specimen Anatomical Collection Method / Collection Time Recei annie Time (Source) Location / Volume Laterality Blood STRUCTURE OF LEFT Venipuncture / 12/25/2021 7:34 12/25 7:55 HAND / Unknown Unknown AM CDT AM CDT Dallin Farah DO LAB - BLOOD ORDERABLES Performing Organization Address City/State/ZIP Code Phon [place] [address] Care Lab [address] Lab (1st floor, no room number) (ABNORMAL) Basic metabolic panel (12/25/2021 7:34 AM CDT) [facility] Method Time Signature Sodium 135 [...] and gender (Brigette et al., NEJ, DOI: 10.1056/[id number]) Specimen Anatomical Collection Method / Collection Time Recei annie Time (Source) Location / Volume Laterality Blood STRUCTURE OF LEFT Venipuncture / 12/25/2021 7:34 12/25 7:38 HAND / Unknown Unknown AM CDT AM CDT Phillip Vinson MD LAB - BLOOD ORDERABLES Performing Organization Address City/State/ZIP Code Ph[place] [phone] Care Lab [address] Lab (1st floor, no room number) (ABNORMAL) Troponin T, High Sensitivity (12/24/2021 6:30 AM CDT) [facility] Method Time Signature Troponin T, High 107 [...] City/State/ZIP Code Ph[place] [address] [facility] [address] [facility] Lab (1st floor, no room number) (ABNORMAL) CBC with platelets (12/24/2021 6:30 AM CDT) [facility] Signature WBC Count 7.5 4.0 [...] Address City/State/ZIP Code [place] [address] Care Lab [address] Lab (1st floor, no room number) (ABNORMAL) Basic metabolic panel (12/24/2021 6:30 AM CDT) [facility] Method Time Signature Sodium 132 [...] and gender (Brigette et al., NEJM, DOI: 10.1056/[id number]) Specimen Anatomical Collection Method / Collection Time Recei annie Time (Source) Location / Volume Laterality Blood STRUCTURE OF RIGHT Venipuncture / 12/24/2021 6:30 100 09/2021 7:15 UPPER LIMB / Unknown AM CDT AM CDT Unknown Dallin Farah DO LAB - BLOOD ORDERABLES Performing Organization Address City/State/ZIP Code [place] [address] Care Lab [address] Lab (1st floor, no room number) [...] City/State/ZIP Code Phon [place] [address] Care Lab [address] Lab (1st floor, no room number) [...] Address City/State/ZIP Code [place] [address] Care Lab [address] Lab (1st floor, no room number) (ABNORMAL) Symptomatic; Yes; 12/20/2021 Influenza A/B & SARS-CoV2 (COVID-19) Virus PCR Multiplex Nasopharyngeal (12/23/2021 10:53 PM CDT) [facility] Method Time Signature Influenza A [...] the Xpert Xpress CoV2/Flu/RSV Assay on the 5minutes GeneXpert Instrument. This test should be ordered [...] management. This test was validated by the [facility] [employer]. These laboratories are certified under the Clinical Laboratory Improvement Amendments of 198 8 (CLIA-88) as qualified to perform high complexity laboratory testing. Nakita Pruitt MD LAB - MICRO GENERAL ORDERABL ES Performing Organization Address City/State/ZIP Code [place] [phone] Care Lab [address] Lab (1st floor, no room number) [...] CT CHEST PULMONARY EMBOLISM W CONTRAST LOCATION: [facility] DATE/TIME: 12/23/2021 9:50 PM INDICATION: Worsening [...] CHEST PULMONARY EMBOLISM W CONT RAST LOCATION: [facility] DATE/TIME: 12/23/2021 9:50 PM INDICATION: Worsening [...] CDT EXAM: XR CHEST 2 VIEWS LOCATION: [facility] DATE/TIME: 12/23/2021 8:06 PM INDICATION: sob COMPARISON: None. Procedure Note Higinio Melchor MD - 12/23/2021Formatt ing of this note might be different from the original. EXAM: XR CHEST 2 VIEWS LOCATION: [facility] DATE/TIME: 12/23/2021 8:06 PM INDICATION: sob COMPARISON: None. IMPRESSION: Status post median sternotom y and valve replacement. Heart size is enlarged. Prominence of central pulmonary vasculature without overt failure or lobar consolidation. No effusions. Calcified granulomas bilaterally. No acute bony abnormality. Nakita Pruitt MD IMG DIAGNOSTIC IMAGING ORDER VESTA (ABNORMAL) Nt probnp inpatient (BNP) (12/23/2021 7:51 PM CDT) [facility] Method Time Signature N terminal Pro >70,000 [...] Address City/State/ZIP Code [place] [address] Care Lab [address] Lab (1st floor, no room number) (ABNORMAL) Troponin T, High Sensitivity (12/23/2021 7:51 PM CDT) [facility] Method Time Signature Troponin T, High 112 [...] Organization Address City/State/[place] [address] Care Lab [address] Lab (1st floor, no room number) Extra Red Top Tube (12/23/2021 7:51 PM CDT) athologist Signature Hold Specimen [facility] 12/23/2021 [facility] 9:05 PM CDT Specimen Anatomical Collection Method / Collection Time Recei annie Time (Source) Location / Volume Laterality Blood STRUCTURE OF RIGHT Venipuncture / 12/23/2021 7:51 10/0 08/2021 7:56 UPPER LIMB / Unknown PM CDT PM CDT Unknown Nakita Pruitt MD LAB - BLOOD ORDERABLES Performing Organization Address City/[facility]/[place] [address] Care Lab [address] Lab (1st floor, no room number) Extra Blue Top Tube (12/23/2021 7:51 PM CDT) athologist Signature Hold Specimen [facility] 12/23/2021 [facility] 9:05 PM CDT Specimen Anatomical Collection Method / Collection Time Recei annie Time (Source) Location / Volume Laterality Blood STRUCTURE OF RIGHT Venipuncture / 12/23/2021 7:51 10/0 08/2021 7:56 UPPER LIMB / Unknown PM CDT PM CDT Unknown Nakita Pruitt MD LAB - BLOOD ORDERABLES Performing Organization Address City/State/[place] [address] Care Lab [address] Lab (1st floor, no room number) (ABNORMAL) CBC with platelets and differential (12/23/2021 7:51 PM CDT) [facility] Method Time Signature WBC Count [...] Address City/State/ZIP Code [place] [phone] Care Lab [address] Lab (1st floor, no room number) (ABNORMAL) Comprehensive metabolic panel (12/23/2021 7:51 PM CDT) [facility] Method Time Signature Sodium 134 [...] and gender (Brigette et al., NEJM, DOI: 10.1056/[id number]) Specimen Anatomical Collection Method / Collection Time Recei annie Time (Source) Location / Volume Laterality Blood STRUCTURE OF RIGHT Venipuncture / 12/23/2021 7:51 10/0 08/2021 7:56 UPPER LIMB / Unknown PM CDT PM CDT Unknown Nakita Pruitt MD LAB - BLOOD ORDERABLES Performing Organization Address City/State/ZIP Code [place] [address] Care Lab [address] Lab (1st floor, no room number) EKG 12 lead (12/23/2021 7:33 PM CDT) Component Value Ref Range Test Analysis Performed Pathologis t Method Time At Signature Systolic Blood mmHg RADIOLOGY Pressure RESULTS Diastolic Blood mmHg RADIOLOGY Pressure RESULTS Ventricular Rate 99 BPM RADIOLOGY RESULTS Atrial Rate 87 BPM RADIOLOGY RESULTS NM Interval ms RADIOLOGY RESULTS QRS Duration 120 ms RADIOLOGY RESULTS QT 378 ms RADIOLOGY RESULTS QTc 485 ms RADIOLOGY RESULTS P [place] degrees RADIOLOGY RESULTS R AXIS 134 degrees RADIOLOGY RESULTS T [place] 8 degrees RADIOLOGY RESULTS Interpretation Atrial fibrillation [...] 1 704 (New Bag - Provider: Janett Mensah RN) Intravenous, 250 mL, ONCE IN DIALYSIS/CR RT, On Mon12/24/21 at 1430, For 1 dose, For patient prime during dialysis, Dialysis 0.9% sodium chloride BOLUS (COMPLETED) 1 703 (New Bag - Provider: Janett Mensah RN) Hemodialysis Machine, 300 mL, ONCE, On F [...] 1152 (Given - Provider: Chiara Emery, RT)1502 (z Missed (do not use) - Provider: Chiara Emery, RT - Reason: Other - Comment: Pt receiving dialysis. Pt stated breathing was okay, will wait until later.) 0134 (Given - Provider: Marylou Chaudhari, RT)0725 (Given - Provider: Lux Kelsey, RT)1410 (Given - Provider: Lux Kelsey, RT) 3 mL, Nebulization, EVERY 6 HOURS RT, First dose on 12/24 at 1130 1934 (Given - Provider: Marylou Chaudhari, RT) metoprolol succinate ER (TOPROL-XL) 24 hr half-tab 12.5 mg 1039 (z Missed (do not use) - Provider: Geovanna Zee RN - Reason: [...] 40 mg 1017 (Given - Provider: Geovanna Zee, OVI) 09 (Given - Provider: Gladys lane, OVI) [...] BOLUS Intravenous, 100-150 mL, EVERY 15 MIN NM N, Until hypotensive symptoms resolve, Starting on [...] 3 mL 2332 (Given - Provider: Jeff Martinez RN) 3 mL, Nebulization, EVERY 4 HOURS PRN, [...] PRN, Starting on Mon12/24/21 at 1417, Until Mon12/25/21 at 1813, Stop Heparin 60 minutes before [...] documented as of this encounter Care Teams Elementary Classroom Teacher Relationship Specialty Start Date End Date Liban Leos PCP - General Family Medicine 10/08/21 [address] [place] [address] Ernie Pompa MD MD Nephrology 10/08/21 [address] [place] [address] documented as of this encounter
--- OUTSIDE RECORDS SUMMARY | 2022-02-24 13:22 | XMS_ITS | Encounter Summary ---
:1945 Author Organization [facility] Address [facility] [place] [address] Care Team Providers Name Role Phone Liban Leos Primary Care Provider Ernie Pompa MD Unavailable Reason for Referral Care Coordination (Routine: Next available opening) - Pending Review Specialty Diagnoses / Procedures Referred By Contact Refer red To Contact Diagnoses Other specified counseling Liban Leos [address] [place] [address] Referral ID Status Reason Start Date Expiration Date Visits V isits Requested Authorized [id number] Pending 10/12/2021 10/12/2022 1 1 Review Encounter Details Date Type Department Care Team Description 10/12/2021 Orders Only [facility] [address] Other specified Care Coordination [address] counseling [address] [place] [address] [place] [address] Social History Tobacco Use Types [...] Type Priority Associated Diagnoses Order S [facility] Referral Routine: Next Other specified Expected: Discharge - available opening counseling 10/12/2021 Referral to CC (Approximate) , Expires: 10/12/2022 documented as of this encounter Visit Diagnoses Diagnosis Other specified counseling documented in this encounter Care Teams Magnetometer Operator Relationship Specialty Start Date End Date Liban Leos PCP - General Family Medicine 10/08/21 [address] [place] [address] Ernie Pompa MD MD Nephrology 10/08/21 [address] [place] [address] documented as of this encounter
--- OUTSIDE RECORDS SUMMARY | 2022-02-24 13:22 | XMS_ITS | Encounter Summary ---
:1945 Author Organization [facility] Address [facility] [place] [address] Care Team Providers Name Role Phone Unavailable Primary Care Provider Unavailable Encounter Details Date Type Department Care Team Description 04/07/2019 Records - [facility] G[facility]IATR[facility] Laboratory [place] [id number] [place], [place] [phone] [id number] Social History Tobacco Use Types Packs/Day Years Used Date Smoking Tobacco: Never Assessed Sex Assigned at Date Recorded Not on file documented as of this encounter Plan of Treatment Not on filedocumented as of this encounter Procedures Procedure Name Priority Date/Time Associated Diagnosis Comme nts BASIC METABOLIC Routine 04/08/2019 7:45 AM Result s for this PANEL [employer] procedure are i n the results section. CBC WITH PLATELETS Routine 04/08/2019 7:45 AM Res ults for this DIE OUT WORKER procedure are i n the results section. documented in this encounter Results (ABNORMAL) Basic metabolic panel (04/08/2019 7:45 AM DIE OUT WORKER) [facility] Method Time Signature Sodium 137 136 - 145 04/08/2019 [facility] mmol/L 10:53 AM [facility] Potassium 5.2 (H) 3.5 - 5.0 04/08/2019 [facility] mmol/L 10:53 AM [facility] Chloride 102 98 - 107 04/08/2019 [facility] mmol/L 10:53 AM [facility] Carbon Dioxide 22 22 - 31 04/08/2019 [facility] (CO2) mmol/L 10:53 AM [facility] Anion Gap 13 5 - 18 04/08/2019 [facility] mmol/L 10:53 AM [facility] Glucose 209 (H) 70 - 125 04/08/2019 [facility] mg/dL 10:53 AM [facility] Calcium 10.3 8.5 - 10.5 04/08/2019 [facility] mg/dL 10:53 AM [facility] Urea Nitrogen 101 (H) 8 - 28 04/08/2019 [facility] mg/dL 10:53 AM [facility] Creatinine 3.66 (H) 0.70 - 04/08/2019 [facility] 1.30 mg/dL 10:53 AM [facility] GFR Estimate If 20 (L) >60 04/08/2019 HEALTH Black mL/min/1.7 10:[address] LABORATORY GFR Estimate 16 (L) >60 04/08/2019 [facility]ALTH mL/min/1.7 10:[address] LABORATORY Specimen Anatomical Collection Method / Collection Time Recei annie Time (Source) Location / Volume Laterality Blood specimen STRUCTURE OF RIGHT Venipuncture / 04/08/2019 7:45 (specimen) UPPER LIMB / Unknown AM DIE OUT WORKER 10:22 AM DIE OUT WORKER Unknown Narrative [facility] - 04/08/2019 10:53 AM DIE OUT WORKER Fasting Glucose reference range is 70-99 mg/dL per [employer] (ADA) maryan marrero. Alison Hollins LAB - BLOOD ORDERABLES Performing Organization Address City/State/ZIP Code Phon e Number [facility] [place] [id number] [place] [address] LAB[place]ATORY [facility] [address] [place] [id number], [facility] (ABNORMAL) CBC with platelets (04/08/2019 7:45 AM DIE OUT WORKER) Patholo gist Method Time Signature WBC 5.2 4.0 - 11.0 04/08/2019 [facility] thou/uL 10:32 AM [facility] RBC Count 2.52 (L) 4.40 - 04/08/2019 [facility] 6.20 10:32 AM [facility]/uL [facility] Hemoglobin 7.9 (L) 14.0 - 04/08/2019 [facility] 18.0 g/dL 10:32 AM [facility] Hematocrit 25.2 (L) 40.0 - 04/08/2019 [facility] 54.0 % 10:32 AM [facility] MCV 100 80 - 100 04/08/2019 [facility] fL 10:32 AM [facility] MCH 31.3 27.0 - 04/08/2019 [facility] 34.0 pg 10:32 AM [facility] MCHC 31.3 (L) 32.0 - 04/08/2019 [facility] 36.0 g/dL 10:32 AM [facility] RDW 19.4 (H) 11.0 - 04/08/2019 [facility] 14.5 % 10:32 AM [facility] Platelet Count 140 140 - 440 04/08/2019 [facility]/uL 10:32 AM [facility] Mean Platelet 10.4 8.5 - 12.5 04/08/2019 [facility] Volume fL 10:32 AM [facility] Specimen Anatomical Collection Method / Collection Time Recei annie Time (Source) Location / Volume Laterality Blood specimen STRUCTURE OF RIGHT Venipuncture / 04/08/2019 7:45 (specimen) UPPER LIMB / Unknown AM DIE OUT WORKER 10:22 AM DIE OUT WORKER Unknown Alison Hollins LAB - BLOOD ORDERABLES Performing Organization Address City/State/ZIP Code Phon e Number [place] [address] [id number] [place], [place] [address] LABORATORY documented in this encounter Visit Diagnoses Not on filedocumented in this encounter
--- OUTSIDE RECORDS SUMMARY | 2022-02-24 13:22 | XMS_ITS | Encounter Summary ---
:1945 Author Organization [facility] Address [address] [place] [address] Care Team Providers Name Role Phone Liban Leos Primary Care Provider Ernie Pompa MD Unavailable Reason for Visit Reason Comments Hypotension Auth/Cert Specialty Diagnoses / Procedures Referred By Contact Refer red To Contact Med Surg Diagnoses UGI bleed UGI bleed 5 Medical Surgical [address] [place], [place] [address] Phone: Fax: Referral ID Status Reason Start Date Expiration Date Visits Requ ested Visits Authorized [id number] 1 1 Encounter Details Date Type Department Care Team Description 10/10/2021 Surgery [facility], ESOPHAGOGA STRODUODENOSCOPY [facility] Joce biopsies Services MD [place] [address] [facility] [phone] [address] [phone] [place], [place] [id number] Surgery Details Date/Time Status Location OR Service [...] Pulse 72 10/10/2021 7:20 AM per television technician CDT Temperature 36.5 ??C (97.7 ??F) 10/09/2021 [...] 10/11/2021 10:42 AM CDT Hospitalist Discharge Summary [facility] Jonatan Mejia Date of : 1945 [...] daily fluticasone (FLONASE) 50 MCG/ACT nasal spray Lynn 1 spray in nostril daily fluticasone-salmeterol (ADVAIR [...] ulcer and??morbid obesity??who??presents to the ED from [facility] due to concerns of hematemesis and melanotic stool. He had just finished HD (took 1.2L) and presented to [facility] due to concerns of dizziness and hematemesis. ?? Work up at [facility] showed hgb of 7.5 and soft pressures in the 100's. CT abd pelvis showed normal distal esophagus, stomach and normal liver. No symptoms of obstruction or mass. There were moderate ascites in the dependent abdomen. He received NS bolus (500cc) and 1 unit(s) PRBC and transferred to [facility] ED. 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 He does also have a history [...] was: 35 Minutes Dallin Farah DO MPH [facility] Hospitalist [place] [address] 10/11/2021 documented in this encounter Medications at Time of Discharge Medication Sig Dispensed Refills Start Date End Date allopurinol (ZYLOPRIM) Take 100 mg by mouth 0 100 MG tablet daily atorvastatin (LIPITOR) Take 20 mg by mouth 0 11/19 20 MG tablet daily fluticasone (FLONASE) 50 Lynn 1 spray in 0 12/15 MCG/ACT nasal [...] walker and gait belt, denies pain, GREY, [id number] on RA. VSS, continues to be anuric. [...] to treatment See Adult Hemodialysis flowsheet in [employer] for further details and post assessment. Machine water alarm in place and functioning. Transducer pods intact and checked every 15min. Pt returned via bed. Chlorine/Chloramine water system checked every 4 hours. Outpatient Dialysis at [facility] Post treatment report given to [...] as tolerate. No heparin. Plan discussed with renal dialysis rn and patient at the bedside. Interval History: [...] medications, labs and imaging. Frederick Alcaraz MD [facility] - Nephrology Office phone :[phone] Pager: [phone] Jovita Blackmon RN - 10/11/2021 7:05 AM [...] Farah DO - 10/10/2021 12:36 PM CDT [facility] Hospitalist Progress Note Name: Jonatan Mejia [...] morbid obesity??who presents to the ED from [facility] due to concerns of hematemesis and melanotic stool. He had just finished HD (took 1.2L) and presented to [facility] due to concerns of dizziness and hematemesis. ?? Work up at [facility] showed hgb of 7.5 and soft pressures in the 100's. CT abd pelvis showed normal distal esophagus, stomach and normal liver. No symptoms of obstruction or mass. There were moderate ascites in the dependent abdomen. He received NS bolus (500cc) and 1 unit(s) PRBC and transferred to [facility] ED. Work up in our ED [...] this interval not displayed. Recent Labs Lab 10/10/2192010/10/2172110/09/21 0910/08/21 2100 10/08/211901 GLC 126* 117* 98 104* 115* Recent Labs Lab 10/10/2172110/10/2121410/09/212201 HGB 9.7* 9.2* 10.3* No results for input(s): CULT in the last 168 hours. Imaging: No results found for this or any previous visit (from the past 24 hour(s)). Dallin Farah DO MPH [facility] [place] [address] 10/10/2021 Terry Wolfe MD - 10/10/2021 9:14 [...] mcg/hr (10/09/21 1126) Current active medications and [facility] medications reviewed, see medication list for details. [...] results for input(s): MAG in the last 57170 hours. No results for input(s): PHOS in the last 35030 hours. Recent Labs Lab Test 10/10/21 0710/09/21 [...] medications, labs and imaging. Terry Wolfe MD ST Christie Roldan MD - 10/10/2021 12:24 AM CDT Cross cover Paged for systolic blood pressure in 80s Patient admitted for GI Hemolobin check 2 hours ago was stable Will give fluid challenge normal saline 500 cc and recheck hemoglobin tomorrow Dallin Farah DO - 10/09/2021 10:[address] [facility] Hospitalist Progress Note Name: Jonatan Mejia [...] morbid obesity??who presents to the ED from [facility] due to concerns of hematemesis and melanotic stool. He had just finished HD (took 1.2L) and presented to [facility] due to concerns of dizziness and hematemesis. ?? Work up at [facility] showed hgb of 7.5 and soft pressures in the 100's. CT abd pelvis showed normal distal esophagus, stomach and normal liver. No symptoms of obstruction or mass. There were moderate ascites in the dependent abdomen. He received NS bolus (500cc) and 1 unit(s) PRBC and transferred to [facility] ED. Work up in our ED [...] EQUAL to 45 kg 8 mg/hr (10/09/21 09) ??? acetaminophen 975 mg Oral Q8H ??? [...] past 24 hour(s)). Dallin Farah DO MPH [facility] [place] [address] 10/09/2021 documented in this encounter H&P Notes Layne Rossi PA-C - 10/08/2021 9:27 PM CDT [facility] Admission History and Physical Examination NAME: [...] morbid obesity??who presents to the ED from [facility] due to concerns of hematemesis and melanotic stool. He had just finished HD (took 1.2L) and presented to [facility] due to concerns of dizziness and hematemesis. Work up at [facility] showed hgb of 7.5 and soft bps in the 100's. CT abd pelvis showed normal distal esophagus, stomach and normal liver. No sxs of obstruction or mass. There were moderate ascites in the dependent abd. He received NS bolus (500cc) and 1u PRBC and transferred to [facility] ED. Work up in our ED [...] morbid obesity??who presents to the ED from [facility] due to concerns of hematemesis and melanotic stool. He had just finished HD (took 1.2L) and presented to [facility] due to concerns of dizziness and hematemesis. Work up at [facility] showed hgb of 7.5 and soft bps in the 100's. CT abd pelvis showed normal distal esophagus, stomach and normal liver. No sxs of obstruction or mass. There were moderate ascites in the dependent abd. He received NS bolus (500cc) and 1u PRBC and transferred to [facility] ED. Work up in our ED [...] 50 MCG/ACT nasal spray Yes Yes Sig: Lynn 1 spray in nostril daily fluticasone-salmeterol (ADVAIR [...] 16 AST -- 15 Layne Rossi PA-C [facility] Medicine October 08, 2021 Securely message with the [employer] Console (learn more here) Text page via [facility] Paging/Directory Associated attestation - Fadi Viveros DO - 10/09/2021 2:30 PM CDT Physician Attestation Fadi Theodore DO, have reviewed and discussed with the [...] 11:33 AM CDTAssociated Order(s): GASTROENTEROLOGY IP CONSULT [facility] Gastroenterology Consultation Joce Zamudio MD Patient [...] had an EGD June [address] [facility]. Preoperative indication was Brannon's surveillance. 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 Biopsies were negative for Brannon's but did show esophagitis. Stomach showed diffuse gastritis with old blood consistent with erosive gastritis. Moderate duodenitis was noted. This was confirmed on biopsy and suspected be due to nonsteroidals likely aspirin. He reports an EGD in the remote past at [facility] that showed ulcers. He has [...] Medication Sig Last Dose Taking? Auth Provider Shift Foreman End Date allopurinol (ZYLOPRIM) 100 MG tablet [...] Yes fluticasone (FLONASE) 50 MCG/ACT nasal spray Lynn 1 spray in nostril daily 10/07/2021 at [...] ??? Lisinopril Cough Social History: Dunn Jimena Terrence Family History: No primary relatives [...] . Recent Labs Lab Test 10/09/21 0912 10/08/21 2247 10/08/21 2044 10/08/21 19004/08/19 0745 WBC 7.2 [...] 15 ALKPHOS 116 Joce Zamudio MD, F[facility] [phone] Terry Wolfe MD - 10/09/2021 10:29 AM CDT Consult Date: 10/09/2021 REQUESTING PHYSICIAN: Dallin Farah MD. SEWER: Dallas Wolfe MD. REASON FOR CONSULTATION: End-stage renal disease, on hemodialysis. HISTORY OF PRESENT ILLNESS: This is a 73-year-old with end-stage renal disease who dialyzes Monday, Monday, Monday. [place] house alone. He drives [...] lives alone in a farm house [place]. REVIEW OF SYSTEMS: He feels relatively well [...] Terry Wolfe MD MT: ETREMT Name: JONATAN MEJIA MRN: [id number] Account: [id number] : 1945 Consult Date: 10/09/2021 Document: [id number] Terry Wolfe MD - 10/09/2021 10:24 AM CDTAssociated Order(s): NEPHROLOGY IP CONSULT See dictation. Confirmation # [id number]. documented in this encounter ED Notes Essence Osuna RN - 10/09/2021 1:16 PM CDT Pt received one unit of RBC this morning, tolerated well, no transfusion reaction. Stepdaughter Melanie jin, aware of patient transfer to [facility]. Advanced to clear liquid diet, tolerating well. Pt will be NPO at midnight for EGD on 10/10. Kaylee Trejo RN - 10/08/2021 11:05 PM CDT [facility] ED Nurse Handoff Report Jonatan Mejia [...] X 1. Lift room needed:No. 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 Infection: Not Applicable. [...] Brianna, , and informed her of admission [facility] boarding status. She will visit tomorrow and [...] - 10/08/2021 6:30 PM CDT sent from [facility]. Dialysis patient with hypotension today. Given 500ml and 1 unit PRBC at [facility]. Florentino Ragsdale MD - 10/08/2021 6:23 PM [...] Bedside Nurse: eugene Mcelroy RN Plan of Emma - Fredy Brian RN - 10/09/2021 10:31 [...] NPO @ midnight.Bleeding precautions. Hemodialysis. Plan of Emma - Kaylee Trejo RN - 10/09/2021 3:48 [...] Tele. NPO @ midnight.Bleeding precautions. Hemodialysis. Kaylee S. Beers, RN Pharmacy-Admission Medication History - Lisbeth Doddn [facility] - 10/08/2021 10:14 PM CDT Admission medication history interview status for this patient is complete. See [facility] admission navigator for allergy information, prior to admission medications and immunization status. Medication history interview done, indicate source(s): Patient Medication history resources (including written lists, pill bottles, clinic record): Janice, [facility] Pharmacy: [id number] - [place], [place] - [address] [facility] [phone] Changes made to [facility] medication list: Added: ALL Actions taken by pharmacist (provider contacted, etc):None Additional medication history information:None Medication reconciliation/reorder completed by provider prior to medication history? No Prior to Admission medications Medication Sig Last Dose Taking? Auth Provider Shift Foreman End Date allopurinol (ZYLOPRIM) 100 MG tablet [...] Yes fluticasone (FLONASE) 50 MCG/ACT nasal spray Lynn 1 spray in nostril daily 10/07/2021 at [...] Diagnosis HEMODIALYSIS SINGLE TREATMENT Routine 10/11/2021 SETUP ([facility]) 4:33 PM CDT HEMODIALYSIS DIALYZER ([facility]) Routine 10/11/2021 2:28 PM CDT IP TERMINATION [...] B surface antigen (10/11/2021 7:46 AM CDT) [facility] [employer] Method Time Signature Hepatitis B Nonreactive Nonreactive [...] e Number [facility] C[facility]/PROT/ENDO [facility] [place], [place] [address] Core/Prot/Endo [address] [facility] [address], Room 3-580 (ABNORMAL) CBC with platelets (10/11/2021 6:36 AM CDT) [facility] [employer] Method Time Signature WBC Count 7.1 4.0 [...] City/State/ZIP Code Phon e [place] [address] Care Lab [address] Lab (1st floor, no room number) (ABNORMAL) Basic metabolic panel (10/11/2021 6:36 AM CDT) [facility] Method Time Signature Sodium 134 133 [...] and gender (Brigette et al., NEJM, DOI: 10.1056/[id number]) Specimen Anatomical Collection Method / Collection Time Recei annie Time (Source) Location / Volume Laterality Blood STRUCTURE OF RIGHT Venipuncture / 10/11/2021 6:36 /07/2021 6:42 HAND / Unknown Unknown AM CDT AM CDT Dallin Farah DO LAB - BLOOD ORDERABLES Performing Organization Address City/State/ZIP Code Phon [place] [address] Care Lab [address] Lab (1st floor, no room number) [...] LAB - BEAKER POCT Performing Organization Address City/[facility]/ZIP Code Phon e Number [place] [address] Care Lab [address] Lab (1st floor, no room number) Surgical Pathology Exam (10/10/2021 8:58 AM CDT) Component Value Ref Test Analysis Performed Pathologis t Range Method Time At Signature Case Report Surgical Pathology Report ? Case: [id number] ? Authorizing Provider: ??Carb allo, Joce ? Collected: ? 10/10/2021 08:58 AM ? 2 8:22 AM LABORA TORY ? MD [place] ? CDT Ordering Location: ? [facility] ?? Received: ?10/10/2021 09:42 AM ? [...] was 2 8:22 AM [facility] Case Images 2 [...] Address City/State/ZIP Code Phon [place] [phone] [facility] Lab [address] [facility] Lab (1st floor, no room number) UPPER GI ENDOSCOPY (10/10/2021 8:18 AM CDT) Component Value Ref Test Analysis Performed At [facility] Range Method Time Signature Upper GI [facility] RADIOLOGY Endoscopy RESULTS Patient Name: Jonatan Mejia ? Procedure Date: 09/18 8:18 AM ? Account Num flako: [id number] Date of : 1945 ?Admit Type: Inp [...] Model ?# [id number]-H190, Endora # 205, SN #[id number] was ?introduced through the mouth, and advanced [...] Note Initiated On: 10/10/2021 8:18 AM MRN: ?[id number] Procedure Date: ? 10/10/2021 8:18:14 AM Total [...] CBC with platelets (10/10/2021 7:22 AM CDT) [facility] Method Time Signature WBC Count 7.2 [...] LAB - BLOOD ORDERABLES Performing Organization Address City/[facility]/ZIP Code Phon e [place] [address] Care Lab [address] Lab (1st floor, no room number) (ABNORMAL) Basic metabolic panel (10/10/2021 7:22 AM CDT) [facility] Method Time Signature Sodium 132 (L) [...] and gender (Brigette et al., NEJM, DOI: 10.1056/DEMCwi7920974) Specimen Anatomical Collection Method / Collection Time Recei annie Time (Source) Location / Volume Laterality Blood STRUCTURE OF RIGHT Venipuncture / 10/10/2021 7:22 07/2 06/2021 7:31 UPPER LIMB / Unknown AM CDT AM CDT Unknown Dallin Farah DO LAB - BLOOD ORDERABLES Performing Organization Address City/State/ZIP Code [place] [address] Care Lab [address] [...] Organization Address City/State/[place] [address] Care Lab [address] Lab (1st floor, no room number) [...] LAB - BLOOD ORDERABLES Performing Organization Address City/[facility]/[place] [address] Care Lab [address] Lab (1st floor, no room number) [...] Organization Address City/State/[place] [address] Care Lab [address] Lab (1st floor, no room number) [...] City/State/ZIP Code Phon e [place] [address] Care Lab [address] Lab (1st floor, no room number) (ABNORMAL) Basic metabolic panel (10/09/2021 9:12 AM CDT) [facility] Method Time Signature Sodium 134 133 [...] es age and gender (Brigette et al., NE, DOI: 10.1056/YUTPlx6427321) Specimen Anatomical Collection Method / Collection Time Recei annie Time (Source) Location / Volume Laterality Blood STRUCTURE OF RIGHT Venipuncture / 10/09/2021 9:12 /05/2021 9:34 HAND / Unknown Unknown AM CDT AM CDT Layne Rossi PA-C LAB - BLOOD ORDERABLES Performing Organization Address City/State/ZIP Code Phon [place] [address] Care Lab [address] Lab (1st floor, no room number) Prepare red blood cells (unit) (10/09/2021 6:52 AM CDT) Patholo gist Method Time Signature CROSSMATCH Compatible RH BLOOD BANK UNIT ABO/RH O Neg RH BLOOD BANK Unit Number [id number] RH BLOOD BANK Unit Status Transfused RH BLOOD BANK Blood Red Blood Cells RH BLOOD Component Type BANK Product Code [id number] RH BLOOD BANK CODING SYSTEM [id number] RH BLOOD BANK UNIT TYPE ISBT 9500 RH BLOOD BANK ISSUE DATE AND [id number] RH BLOOD TIME BANK Specimen (Source) Anatomical Collection Method Collection Time Re ceived Time Location / / Volume Laterality 10/09/2021 6:52 AM CDT Dallin Simons MD BLOOD BANK PRODUCT ORDERABLE S Performing Organization Address City/State/ZIP Code Phon e Number RH BLOOD BANK [address] [place] [address] Transfuse red blood cells (unit) No special requirements (10/09/2021 2:38 AM CDT) Layne Ray Rossi PA-C BLOOD TRANSFUSION ORDERABLES Transfuse red blood cells (unit), 1 Units No special requirements (10/09/2021 2:38 AM CDT) Layne Ray Rossi PA-C BLOOD TRANSFUSION ORDERABLES EKG 12-lead, tracing only (10/09/2021 12:52 AM CDT) Component Value Ref Range Test Analysis Performed [facility] Method Time At Signature Systolic Blood mmHg RADIOLOGY Pressure RESULTS Diastolic Blood mmHg RADIOLOGY Pressure RESULTS Ventricular Rate 70 BPM RADIOLOGY RESULTS Atrial Rate 39 BPM RADIOLOGY RESULTS ID Interval ms RADIOLOGY RESULTS QRS Duration 126 ms RADIOLOGY RESULTS QT 442 ms RADIOLOGY RESULTS QTc 477 ms RADIOLOGY RESULTS P Marcellus degrees RADIOLOGY RESULTS R AXIS 107 degrees RADIOLOGY RESULTS T Marcellus 33 degrees RADIOLOGY RESULTS Interpretation Atrial fibrillation RADIO LOGY ECG Right bundle branch block RESU LTS Abnormal ECG No previous ECGs available Confirmed by - [facility] Aravind PHYSICIAN ([id number]), video tape editor ANDRÉS HATCH ([id number]) on 10/11/2021 6:42:29 AM Specimen Anatomical Collection Method Collection Time Receive d Time (Source) Location / / Volume Laterality 10/09/2021 12:52 10/11/2021 6:42 AM CDT AM CDT Layne Ray Rossi PA-C ECG ORDERABLES Performing Organization Address City/[facility]/ZIP Code Phon e Number RADIOLOGY RESULTS Prepare red blood cells (unit) (10/08/2021 11:46 PM CDT) [facility] gist Method Time Signature CROSSMATCH Compatible RH BLOOD BANK UNIT ABO/RH O Neg RH BLOOD BANK Unit Number [id number] RH BLOOD BANK Unit Status Transfused RH BLOOD BANK Blood Red Blood Cells RH BLOOD Component Type BANK Product Code [id number] RH BLOOD BANK CODING SYSTEM [id number] RH BLOOD BANK UNIT TYPE ISBT 9500 RH BLOOD BANK ISSUE DATE AND RH BLOOD TIME BANK Specimen (Source) Anatomical Collection Method Collection Time Re ceived Time Location / / Volume Laterality 10/08/2021 11:46 PM CDT Layne Rossi PA-C BLOOD BANK PRODUCT ORDERABLE S Performing Organization Address City/State/ZIP Code Phon e Number RH BLOOD BANK [address] [place] [address] (ABNORMAL) Hemoglobin (10/08/2021 10:47 PM CDT) athologist [...] City/State/ZIP Code Phon e Number [place] [phone] Care Lab [address] [...] City/State/ZIP Code Phon e [place] [address] Care Lab [address] [facility] Lab (1st floor, no room number) Asymptomatic [...] the Xpert Xpress SARS-CoV-2 Assay on the [employer]. A dditional information about this [...] COVID-19. This test was validated by the [facility]. This laboratory is certified under the Clinical Laboratory Improvement Amendments of 1988 (CLIA-88) as qualified to perform high complexity laboratory testing. Florentino Ragsdale MD LAB - MICRO GENERAL ORDERABL ES Performing Organization Address City/State/ZIP Code Phon [place] [address] Care Lab [address] Lab (1st floor, no room number) [...] Address City/State/ZIP Code Phon [place] [address] Care Lab [address] Lab (1st floor, no room number) Extra Red Top Tube (10/08/2021 7:02 PM CDT) athologist [facility] Hold Specimen JIC 10/08/2021 RH LABORATORY 8:18 PM CDT Specimen Anatomical Collection Method / Collection Time Recei annie Time (Source) Location / Volume Laterality Blood STRUCTURE OF RIGHT Venipuncture / 10/08/2021 7:02 09/18 7:10 UPPER LIMB / Unknown PM CDT PM CDT Unknown Florentino Ragsdale MD LAB - BLOOD ORDERABLES Performing Organization Address City/[facility]/ZIP Code Phon [place] [address] Care Lab [address] Lab (1st floor, no room number) [...] LAB - BLOOD ORDERABLES Performing Organization Address City/[facility]/ZIP Code Phon e Number [place] [phone] Care Lab [address] Lab (1st floor, no room number) Adult Type and Screen (10/08/2021 7:02 PM CDT) [facility] [employer] Method Time Signature ABO/RH(D) O NEG 10/08/2021 RH BLOOD 6:39 PM CDT BANK Antibody Negative Negative 10/08/2021 RH BLOOD Screen 6:39 PM CDT BANK SPECIMEN [id number] 10/08/2021 RH BLOOD EXPIRATION 6:39 PM CDT BANK DATE Specimen Anatomical Collection Method / Collection Time Recei annie Time (Source) Location / Volume Laterality Blood STRUCTURE OF RIGHT Venipuncture / 10/08/2021 7:02 09/18 7:10 UPPER LIMB / Unknown PM CDT PM CDT Unknown Florentino Ragsdale MD LAB - BLOOD BANK TEST ORDER Performing Organization Address City/[facility]/ZIP Code Phon e Number RH BLOOD BANK [address] [place] [address] (ABNORMAL) Comprehensive metabolic panel (10/08/2021 7:02 PM CDT) [employer] Method Time Signature Sodium 136 133 - [...] and gender (Brigette et al., NEJ, DOI: 10.1056/[id number]) Specimen Anatomical Collection Method / Collection Time Recei annie Time (Source) Location / Volume Laterality Blood STRUCTURE OF RIGHT Venipuncture / 10/08/2021 7:02 09/18 7:10 UPPER LIMB / Unknown PM CDT PM CDT Unknown Florentino Ragsdale MD LAB - BLOOD ORDERABLES Performing Organization Address City/State/ZIP Code Ph[place] [phone] Care Lab [address] Lab (1st floor, no room number) [...] (Given - Pr ovider: Calista Recio, RN)1507 (z Missed (do not use) - Provider: Kaylee Trejo RN - Reason: Patient/family refused)2325 (z Missed (do not use) - Provider: Fredy Brian RN - Reason: Patient/family refused) 0604 (z Missed (do not use) - Provider: Eugene Sherman RN - Reason: Patient/family refused)0748 (Auto Hold - Provider: Orders Generic Provider - Reason: Transfer to a procedural area)1133 (Unhold - Provider: Orders Generic Provider) 0639 (z Missed (do not use) - Provider: Jovita Blackmon RN - Reason: Patient/family refused)1126 (Given - Provider: Melanie Rodriguez, OVI)1526 (z Missed (do not use) - Provider: Melanie Rodriguez RN - Reason: Other - Comment: too soon to give q8h) 975 mg, Oral, EVERY 8 HOURS, First dose on Mon10/09/21 at 0700, Maximum acetaminophen dose from all sources = 75 mg/kg/day not to exceed 4 grams/day. 1420 (z Missed (do not use) - Provider: Kaylee Trejo RN - Reason: Patient/family refused)2205 (z Missed (do not use) - Provider: Aracelis Goldstein RN - Reason: [...] sevelamer carbonate (RENVELA) tablet 800 mg 0859 (z Mi ssed (do not use) - Provider: Essence Osuna RN - Reason: NPO)1346 (z Missed (do not use) - Provider: Essence Osuna RN - Reason: NPO)1818 (Given - Provider: Fredy Brian, OVI) 0748 (Auto Hold - Provider: Orders Gener ic Provider - Reason: Transfer to a procedural area)0800 (z Missed (do not use) - Provider: Kaylee Trejo RN - Reason: [...] Kaylee Trejo RN)1854 (Given - Provider: Aracelis Goldstein, OVI) sodium chloride (PF) 0.9% PF flush 3 mL 0858 (z Missed (do not use) - Provider: Essence Osuna RN - Reason: IV Infusing)1125 (Canceled Entry - Provider: Essence Osuna RN)1827 (z Missed (do not use) - Provider: Fredy Brian RN - Reas on: IV Infusing) 0013 (Given - Provider: Eugene Sherman RN)074 8 (Auto Hold - Provider: Orders Generic Provider - Reason: Transfer to a procedural area)0945 (Automatically Held - Provider: Orders Generic Provider)1133 (Unhold - Provider: Orders Generic Provider) 0039 (Given - Provider: Jovita Blackmon, OVI)0145 (Canceled Entry - Provider: Jovita Blackmon, RN)0922 (Given - Provider: Melanie Rodriguez, OVI)1838 (Given - Provider: Aracelis Goldstein, RN) 3 mL, Intracatheter, EVERY 8 HOURS, Firs t dose on 10/09/21 at 0145, to lock peripheral IV dormant line 1943 (Given - Provider: Araeclis Goldstein, OVI) sucralfate (CARAFATE) suspension 1 g 141 9 (z Missed (do not use) - Provider: Kaylee Trejo RN - Reason: Medication not available)1854 (Given - Provider: Aracelis Goldstein RN) 0639 (Given - Provider: Jovita Blackmon, OVI)1233 (Given - Provider: Melanie Rodriguez, OVI)1838 (Given - Provider: Aracelis Goldstein RN) 1 [...] Thompson RN)0629 (New Bag - Provider: Calista Recio, OVI)0900 (Rate/Dose Verify - Provider: Essence Osuna, [...] 0143 documented in this encounter Care Teams 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
--- OUTSIDE RECORDS SUMMARY | 2022-02-24 13:22 | XMS_ITS | Encounter Summary ---
:1945 Author Organization [facility] Address [address] [place] [address] Care Team Providers Name Role Phone Liban Leos Primary Care Provider Ernie Pompa MD Unavailable Reason for Visit Reason Comments Hypotension Auth/Cert Specialty Diagnoses / Procedures Referred By Contact Refer red To Contact Med Surg Diagnoses UGI bleed UGI bleed 5 Medical Surgical [address] [place], [place] [address] Phone: Fax: Referral ID Status Reason Start Date Expiration Date Visits Requ ested Visits Authorized [id number] 1 1 Encounter Details Date Type Department Care Team Description 10/08/2021 - Hospital Encounter [facility] Florentino Ragsdale MD [facility] [address] [place], [place] [id number] UGI bleed 10/11/2021 [facility] 5 Medical Fadi Viveros DO [address] [place] [address] Surgical Dallin Simons MD [facility] [address] [place] [address] [address] Rhys Burt MD [facility] [address] [place], [place] [id number] [place] [address] Social History Tobacco Use Types [...] 10/11/2021 10:42 AM CDT Hospitalist Discharge Summary [facility] Jonatan Mejia Date of : 1945 [...] daily fluticasone (FLONASE) 50 MCG/ACT nasal spray Fulda 1 spray in nostril daily fluticasone-salmeterol (ADVAIR [...] ulcer and??morbid obesity??who??presents to the ED from [place] [facility] due to concerns of hematemesis and melanotic stool. He had just finished HD (took 1.2L) and presented to [facility] due to concerns of dizziness and hematemesis. ?? Work up at [place] [facility] showed hgb of 7.5 and soft pressures in the 100's. CT abd pelvis showed normal distal esophagus, stomach and normal liver. No symptoms of obstruction or mass. There were moderate ascites in the dependent abdomen. He received NS bolus (500cc) and 1 unit(s) PRBC and transferred to [facility] ED. 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 He does also have a [...] Minutes Dallin Farah DO MPH [facility] [place] [address] 10/11/2021 documented in this encounter Medications at Time of Discharge Medication Sig Dispensed Refills Start Date End Date allopurinol (ZYLOPRIM) Take 100 mg by mouth 0 100 MG tablet daily atorvastatin (LIPITOR) Take 20 mg by mouth 0 11/19 20 MG tablet daily fluticasone (FLONASE) 50 Fulda 1 spray in 0 12/15 MCG/ACT nasal [...] walker and gait belt, denies pain, GREY, [id number] on RA. VSS, continues to be anuric. [...] checked every 4 hours. Outpatient Dialysis at [facility] Post treatment report given to Delilah Goldstein [...] as tolerate. No heparin. Plan discussed with manager pulmonary and patient at the bedside. Interval History: [...] medications, labs and imaging. Frederick Alcaraz MD [facility]phrology Office phone :[phone] Pager: [phone] Jovita Blackmon RN - 10/11/2021 7:05 AM [...] Farah DO - 10/10/2021 12:36 PM CDT [facility] Hospitalist Progress Note Name: Jonatan Mejia [...] morbid obesity??who presents to the ED from [facility] due to concerns of hematemesis and melanotic stool. He had just finished HD (took 1.2L) and presented to [facility] due to concerns of dizziness and hematemesis. ?? Work up at [facility] showed hgb of 7.5 and soft pressures in the 100's. CT abd pelvis showed normal distal esophagus, stomach and normal liver. No symptoms of obstruction or mass. There were moderate ascites in the dependent abdomen. He received NS bolus (500cc) and 1 unit(s) PRBC and transferred to [facility] ED. Work up in our [...] Data Laboratory: Recent Labs Lab 10/10/2172110/10/2121410/09/21220110/09/21 1348 10/09/2191110/08/21224610/08/211901 WBC 7.2 -- -- -- 7.2 -- [...] hour(s)). Dallin Farah DO MPH [facility] [place] [address] 10/10/2021 Terry Wolfe MD - 10/10/2021 9:14 [...] mcg/hr (10/09/21 1126) Current active medications and SOLAR PHOTOVOLTAIC INSTALLER medications reviewed, see medication list for details. [...] results for input(s): MAG in the last 45524 hours. No results for input(s): PHOS in the last 17372 hours. Recent Labs Lab Test 10/10/21 0710/09/21 [...] medications, labs and imaging. Terry Wolfe MD hristie Watts MD - 10/10/2021 12:24 AM CDT Cross cover Paged for systolic blood pressure in 80s Patient admitted for GI Hemolobin check 2 hours ago was stable Will give fluid challenge normal saline 500 cc and recheck hemoglobin tomorrow Dallin Linares DO - 10/09/2021 10:04 AM CDT [facility] Hospitalist Progress Note Name: Jonatan Mejia [...] morbid obesity??who presents to the ED from [facility] due to concerns of hematemesis and melanotic stool. He had just finished HD (took 1.2L) and presented to [facility] due to concerns of dizziness and hematemesis. ?? Work up at [facility] showed hgb of 7.5 and soft pressures in the 100's. CT abd pelvis showed normal distal esophagus, stomach and normal liver. No symptoms of obstruction or mass. There were moderate ascites in the dependent abdomen. He received NS bolus (500cc) and 1 unit(s) PRBC and transferred to [facility] ED. Work up in our [...] 104* 115* Recent Labs Lab 10/09/21 0912 10/08/21224610/08/211901 HGB 8.5* 7.7* 8.1* No results for input(s): CULT in the last 168 hours. Imaging: No results found for this or any previous visit (from the past 24 hour(s)). Dallin Farah DO [facility] [place] [address] 10/09/2021 documented in this encounter H&P Notes Layne Rossi PA-C - 10/08/2021 9:27 PM CDT [facility] Admission History and Physical Examination NAME: Jonatan [...] morbid obesity??who presents to the ED from [facility] due to concerns of hematemesis and melanotic stool. He had just finished HD (took 1.2L) and presented to [facility] due to concerns of dizziness and hematemesis. Work up at [facility] showed hgb of 7.5 and soft bps in the 100's. CT abd pelvis showed normal distal esophagus, stomach and normal liver. No sxs of obstruction or mass. There were moderate ascites in the dependent abd. He received NS bolus (500cc) and 1u PRBC and transferred to [facility] ED. Work up in our [...] morbid obesity??who presents to the ED from [facility] due to concerns of hematemesis and melanotic stool. He had just finished HD (took 1.2L) and presented to [facility] due to concerns of dizziness and hematemesis. Work up at [facility] showed hgb of 7.5 and soft bps in the 100's. CT abd pelvis showed normal distal esophagus, stomach and normal liver. No sxs of obstruction or mass. There were moderate ascites in the dependent abd. He received NS bolus (500cc) and 1u PRBC and transferred to [facility] ED. Work up in our [...] 50 MCG/ACT nasal spray Yes Yes Sig: Fulda 1 spray in nostril daily fluticasone-salmeterol (ADVAIR [...] 16 AST -- 15 Layne Rossi PA-C [facility] Medicine October 08, 2021 Securely message with the adhoclabs Console (learn more here) Text page via [facility] Message Display Paging/Directory Associated attestation - Fadi Viveros DO - 10/09/2021 2:30 PM CDT Physician Attestation I, Fadi Baxa, DO, have reviewed and discussed with the [...] 11:33 AM CDTAssociated Order(s): GASTROENTEROLOGY IP CONSULT [facility] Gastroenterology Consultation Joce Zamudio MD Patient Name: [...] He had an EGD June 28 at [facility]. Preoperative indication was Brannon's surveillance. 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 Biopsies were negative for Brannon's but did show esophagitis. Stomach showed diffuse gastritis with old blood consistent with erosive gastritis. Moderate duodenitis was noted. This was confirmed on biopsy and suspected be due to nonsteroidals likely aspirin. He reports an EGD in the remote past at [facility] that showed ulcers. He has ascites on [...] Medication Sig Last Dose Taking? Auth Provider Mcfp End Date allopurinol (ZYLOPRIM) 100 MG tablet [...] Yes fluticasone (FLONASE) 50 MCG/ACT nasal spray Fulda 1 spray in nostril daily 10/07/2021 at [...] . Recent Labs Lab Test 10/09/21 0910/08/217 10/08/21204310/08/21 19004/08/19 0745 WBC 7.2 -- -- 7.1 [...] ALKPHOS 116 Joce Zamudio MD, [facility] [phone] Terry Wolfe MD - 10/09/2021 10:29 AM CDT Consult Date: 10/09/2021 REQUESTING PHYSICIAN: Dallin Farah MD. HOSPICE PLAN ADMINISTRATOR: Dallas Wolfe MD. REASON FOR CONSULTATION: End-stage renal disease, on hemodialysis. HISTORY OF PRESENT ILLNESS: This is a 73-year-old with end-stage renal disease who dialyzes Monday, Monday, Monday. He lives [place] [address] [place] house alone. He drives [...] lives alone in a farm house [place] [address]. REVIEW OF SYSTEMS: He feels relatively well [...] MD MT: ELIZABETH Name: JONATAN MEJIA Account: [id number] : 1945 Consult Date: 10/09/2021 Document: [id number] Terry Wolfe MD - 10/09/2021 10:24 AM CDTAssociated Order(s): NEPHROLOGY IP CONSULT See dictation. Confirmation # [id number]. documented in this encounter ED Notes Essence Osuna RN - 10/09/2021 1:16 PM CDT Pt received one unit of RBC this morning, tolerated well, no transfusion reaction. Stepdaughter Melanie jin, aware of patient transfer to [facility]. Advanced to clear liquid diet, tolerating well. Pt will be NPO at midnight for EGD on 10/10. Kaylee Trejo RN - 10/08/2021 11:05 PM CDT [facility] ED Nurse Handoff Report Jonatan Mejia is [...] X 1. Lift room needed:No. Bariatric: No Photo Technician Needed: No Isolation: No. Infection: Not Applicable. [...] Brianna, , and informed her of admission [facility] boarding status. She will visit [...] - 10/08/2021 6:30 PM CDT sent from [place] ER. Dialysis patient with hypotension today. Given 500ml and 1 unit PRBC at [place]. Florentino Ragsdale MD - 10/08/2021 6:23 PM [...] NEG Antibody Screen Negative SPECIMEN EXPIRATION DATE [id number] ABO/RH TYPE AND SCREEN Emergency Department Course: [...] Medication History - Erlin Dodd, [facility] - 10/08/2021 10:14 PM CDT Admission medication history interview status for this patient is complete. See [facility] admission navigator for allergy information, prior to admission medications and immunization status. Medication history interview done, indicate source(s): Patient Medication history resources (including written lists, pill bottles, clinic record): Evelin Camacho Pharmacy: [id number] - [place], [place] - [address] [facility] [phone] Changes made to SOLAR PHOTOVOLTAIC INSTALLER medication list: Added: ALL Actions taken by pharmacist (provider contacted, etc):None Additional medication history information:None Medication reconciliation/reorder completed by provider prior to medication history? No Prior to Admission medications Medication Sig Last Dose Taking? Auth Provider Studio Sales Associate End Date allopurinol (ZYLOPRIM) 100 MG tablet [...] Yes fluticasone (FLONASE) 50 MCG/ACT nasal spray Fulda 1 spray in nostril daily 10/07/2021 at [...] surface antigen (10/11/2021 7:46 AM CDT) [facility] Method Time Signature Hepatitis B Nonreactive Nonreactive [...] e Number [facility] CORE/PROT/ENDO [facility] [place] [address] Core/Prot/Endo [address] [facility] [address] Building, Room 3-580 (ABNORMAL) CBC with platelets (10/11/2021 6:36 AM CDT) [facility] Method Time Signature WBC Count 7.1 4.0 [...] Address City/State/ZIP Code Phon [place] [address] Care Lab [address] Lab (1st floor, no room number) (ABNORMAL) Basic metabolic panel (10/11/2021 6:36 AM CDT) [facility] Method Time Signature Sodium 134 133 - [...] and gender (Brigette et al., NEJM, DOI: 10.1056/[id number]) Specimen Anatomical Collection Method / Collection Time Recei annie Time (Source) Location / Volume Laterality Blood STRUCTURE OF RIGHT Venipuncture / 10/11/2021 6:36 07/2 07/2021 6:42 HAND / Unknown Unknown AM CDT AM CDT Dallin Farah DO LAB - BLOOD ORDERABLES Performing Organization Address [facility]/ZIP Code Phon [place] [address] Care Lab [address] Lab (1st floor, no room number) [...] LAB - BEAKER POCT Performing Organization Address City/[facility]/ZIP Code Phon e Number [place] [address] Care Lab [address] Lab (1st floor, no room number) Surgical Pathology Exam (10/10/2021 8:58 AM CDT) Component Value Ref Test Analysis Performed Pathologis t Range Method Time At Signature Case Report Surgical Pathology Report ? Case: [id number] ? Authorizing Provider: ??Joce Traore ? Collected: ? 10/10/2021 08:58 AM ? 2 8:22 AM LABORA TORY ? MD Edgard ? CDT [facility] ?? Received: ?10/10/2021 09:42 AM ? [...] entirely submitted in 1 cassette. (MARIO Saldaña [facility]) Microscopic Microscopic examination Description was performed. 2 8:22 AM LABORATORY CDT Special -Negative for H. Pylori orga nisms on immunohistochemical stains. All controls stain appropriately. RH Stains 2 8:22 AM LABORATORY CDT Performing The technical component Labs of this testing was 2 8:22 AM LABORATORY completed at [facility] Laboratory Case Images 2 8:22 [...] Organization Address City/State/ZIP Code Phon e [place] [facility] [address] Care Lab [address] Lab (1st floor, no room number) UPPER GI ENDOSCOPY (10/10/2021 8:18 AM CDT) Component Value Ref Test Analysis Performed At [facility] Range Method Time Signature [facility] RADIOLOGY Endoscopy RESULTS Patient Name: Jonatan Mejia ? Procedure Date: 09/18 8:18 AM ? Account Num flako: [id number] Date of : 1945 ?Admit Type: Inp [...] Model ?# GIF-H190, Endora # 205, SN #[id number] was ?introduced through the mouth, and advanced [...] Note Initiated On: 10/10/2021 8:18 AM MRN: ?[id number] Procedure Date: ? 10/10/2021 8:18:14 AM Total [...] with platelets (10/10/2021 7:22 AM CDT) [facility] Method Time Signature WBC Count 7.2 4.0 [...] LAB - BLOOD ORDERABLES Performing Organization Address City/[facility]/ZIP Code Phon e Number [place] [phone] Care Lab [address] Lab (1st floor, no room number) (ABNORMAL) Basic metabolic panel (10/10/2021 7:22 AM CDT) Patholo gist Method Time Signature Sodium 132 (L) 133 - 144 10/10/2021 LABORATORY mmol/L 7:54 AM CDT Potassium 5.1 3.4 - 5.3 10/10/2021 LABORATORY mmol/L 7:54 AM CDT Chloride 100 94 - 109 10/10/2021 LABORATORY mmol/L 7:54 AM CDT Carbon Dioxide [...] and gender (Brigette et al., NEJ, DOI: 10.1056/[id number]) Specimen Anatomical Collection Method / Collection Time Recei annie Time (Source) Location / Volume Laterality Blood STRUCTURE OF RIGHT Venipuncture / 10/10/2021 7:22 07/2 06/2021 7:31 UPPER LIMB / Unknown AM CDT AM CDT Unknown Dallin Farah DO LAB - BLOOD ORDERABLES Performing Organization Address City/State/ZIP Code Phon [place] [address] Care Lab [address] Lab (1st floor, no room number) (ABNORMAL) [...] LAB - BLOOD ORDERABLES Performing Organization Address City/[facility]/[place] [address] Care Lab [address] Lab (1st floor, no room number) [...] LAB - BLOOD ORDERABLES Performing Organization Address City/[facility]/[place] [address] Care Lab [address] Lab (1st floor, no room number) [...] Organization Address City/State/[place] [phone] Care Lab [address] Lab (1st floor, no room number) Transfuse red blood cells (unit) No special requirements (10/09/2021 11:51 AM CDT) Dallin Simons MD BLOOD TRANSFUSION ORDERABLES Transfuse red blood cells (unit), 1 Units No special requirements (10/09/2021 11:51 AM CDT) Dallin Simons MD BLOOD TRANSFUSION ORDERABLES (ABNORMAL) CBC with platelets (10/09/2021 9:12 AM CDT) [facility] gist Method Time Signature WBC Count [...] City/State/ZIP Code Phon e Number [place] [address] Care Lab [address] Lab (1st floor, no room number) (ABNORMAL) Basic metabolic panel (10/09/2021 9:12 AM CDT) [facility] Method Time Signature Sodium 134 133 - [...] and gender (Brigette et al., NEJM, DOI: 10.1056/[id number]) Specimen Anatomical Collection Method / Collection Time Recei annie Time (Source) Location / Volume Laterality Blood STRUCTURE OF RIGHT Venipuncture / 10/09/2021 9:12 07/2 05/2021 9:34 HAND / Unknown Unknown AM CDT AM CDT Layne Rossi PA-C LAB - BLOOD ORDERABLES Performing Organization Address City/State/ZIP Code Phon e Number [place] [phone] Care Lab [address] Lab (1st floor, no room number) Prepare red blood cells (unit) (10/09/2021 6:52 AM CDT) [facility] Method Time Signature CROSSMATCH Compatible RH BLOOD BANK UNIT ABO/RH O Neg RH BLOOD BANK Unit Number [id number] RH BLOOD BANK Unit Status Transfused RH BLOOD BANK Blood Red Blood Cells RH BLOOD Component Type BANK Product Code [id number] RH BLOOD BANK CODING SYSTEM [id number] RH BLOOD BANK UNIT TYPE ISBT 9500 RH BLOOD BANK ISSUE DATE AND [id number] RH BLOOD TIME BANK Specimen (Source) Anatomical Collection Method Collection Time Re ceived Time Location / / Volume Laterality 10/09/2021 6:52 AM CDT Dallin Simons MD BLOOD BANK PRODUCT ORDERABLE S Performing Organization Address City/State/ZIP Code Phon e Number RH BLOOD BANK [address] [place] [address] Transfuse red blood cells (unit) No special requirements (10/09/2021 2:38 AM CDT) Layne Gilliamu PA-C BLOOD TRANSFUSION ORDERABLES Transfuse red blood cells (unit), 1 Units No special requirements (10/09/2021 2:38 AM CDT) Layne Ray Rossi PA-C BLOOD TRANSFUSION ORDERABLES EKG 12-lead, tracing only (10/09/2021 12:52 AM CDT) Component Value Ref Range Test Analysis Performed [facility] Method Time At Signature Systolic [...] ECGs available Confirmed by - EMERG[facility]Y [place], PHYSICIAN ([id number]), assignment editor ANDRÉS HATCH ([id number]) on 10/11/2021 6:42:29 AM Specimen Anatomical Collection Method Collection Time Receive d Time (Source) Location / / Volume Laterality 10/09/2021 12:52 10/11/2021 6:42 AM CDT AM CDT Layne Ray Rossi PA-C ECG ORDERABLES Performing Organization Address City/State/ZIP Code Phon e Number RADIOLOGY RESULTS Prepare red blood cells (unit) (10/08/2021 11:46 PM CDT) [facility] gist Method Time Signature CROSSMATCH Compatible RH BLOOD BANK UNIT ABO/RH O Neg RH BLOOD BANK Unit Number [id number] RH BLOOD BANK Unit Status Transfused RH BLOOD BANK Blood Red Blood Cells RH BLOOD Component Type BANK Product Code [id number] RH BLOOD BANK CODING SYSTEM [id number] RH BLOOD BANK UNIT TYPE ISBT 9500 RH BLOOD BANK ISSUE DATE AND RH BLOOD TIME BANK Specimen (Source) Anatomical Collection Method Collection Time Re ceived Time Location / / Volume Laterality 10/08/2021 11:46 PM CDT Layne MARTIN-Josy BLOOD BANK PRODUCT ORDERABLE S Performing Organization Address City/State/ZIP Code Phon e Number RH BLOOD BANK [address] [place] [address] (ABNORMAL) Hemoglobin (10/08/2021 10:47 PM CDT) athologist [...] City/State/ZIP Code Phon e Number [place] [phone] Care Lab [address] Lab (1st floor, no room number) [...] Address City/State/ZIP Code Phon [place] [address] Care Lab [address] Lab (1st floor, no room number) [...] the Xpert Xpress SARS-CoV-2 Assay on the [employer]. A dditional information about this [...] COVID-19. This test was validated by the [facility]. This laboratory is certified under the Clinical Laboratory Improvement Amendments of 1988 (CLIA-88) as qualified to perform high complexity laboratory testing. Florentino Ragsdale MD LAB - MICRO GENERAL ORDERABL ES Performing Organization Address City/[facility]/ZIP Code Phon [place] [address] Care Lab [address] Lab (1st floor, no room number) [...] ORDERABLES Performing Organization Address [facility]/ZIP Code Phon [place] [address] Care Lab [address] Lab (1st floor, no room number) [...] LAB - BLOOD ORDERABLES Performing Organization Address City/[facility]/ZIP Code Phon [place] [address] Care Lab [address] Lab (1st floor, no room number) [...] City/State/ZIP Code Phon e Number [place] [address] Care Lab [address] [facility] Lab (1st floor, no room number) Adult Type and Screen (10/08/2021 7:02 PM CDT) [facility] [employer] Method Time Signature ABO/RH(D) O NEG 10/08/2021 RH BLOOD 6:39 PM CDT BANK Antibody Negative Negative 10/08/2021 RH BLOOD Screen 6:39 PM CDT BANK SPECIMEN [id number] 10/08/2021 RH BLOOD EXPIRATION 6:39 PM CDT [...] e Number RH BLOOD BANK [address] [place] [address] (ABNORMAL) Comprehensive metabolic panel (10/08/2021 7:02 PM CDT) [facility] Method Time Signature Sodium 136 133 - [...] and gender (Brigette et al., NEJM, DOI: 10.1056/[id number]) Specimen Anatomical Collection Method / Collection Time Recei annie Time (Source) Location / Volume Laterality Blood STRUCTURE OF RIGHT Venipuncture / 10/08/2021 7:02 09/18 7:10 UPPER LIMB / Unknown PM CDT PM CDT Unknown Florentino Ragsdale MD LAB - BLOOD ORDERABLES Performing Organization Address City/State/ZIP Code Phon [place] [address] Care Lab [address] [facility] Lab (1st floor, no [...] Intravenous, 250 mL, ONCE IN DIALYSIS/CRRT, On 10/11/21 at 1430, For 1 dose, For patient prime during dialysis, Dialysis 0.9% sodium chloride BOLUS New Bag 10/11/2021 3:29 PM CDT 300 mLs Hemodialysis Machine, 300 mL, ONCE, On 10/11/21 at 1430, For 1 dose, [...] (Given - Pr ovider: Calista Recio RN)1507 (z Missed (do not use) - [...] Orders Generic Provider)1213 (Given - Provider: Kaylee Trejo, OVI) 0759 (Given - Provider: Phillip Cm, RT) [...] Trejo RN) 0815 (Given - Provider: Melanie Rodriguez, OVI) [...] Melanie Rodriguez, OVI)1232 (Given - Provider: Melanie Rodriguez, OVI)1838 (Given [...] Missed (do not use) - Provider: Essence Osuna, OVI - Reason: IV Infusing)1125 (Canceled Entry - [...] OVI)1838 (Given - Provider: Aracelis Goldstein, OVI) 3 [...] Osuna, OVI)1126 (Rate/Dose Verify - Provider: Essence Osuna RN) 0715 (Paused - Provider: Kaylee Trejo RN) 50 mcg/hr (10 mL/hr), Intravenous, WILLI NUOUS, Starting on Mon10/08/21 at 1940, Decrease to 25 mcg for 12 hours then stop Irritant. pantoprazole (PROTONIX) 80 mg in sodium chloride 0.9 % 100 mL infusion (CANCELED) 0142 (Rate/Dose Verify - Provider: Tavo Thompson RN)0629 (New Bag - Provider: Calista Recio, RN)0900 (Rate/Dose Verify - Provider: Essence Osuna, OVI)1126 (Rate/Dose Verify - Provider: Essence Osuna, RN) 0350 (New Bag - Provider: Eugene Sherman, OVI)0715 (Stopped - Provider: Kaylee Trejo RN) 8 [...] 0143 documented in this encounter Care Teams Gasoline Dragline Operator Relationship Specialty Start Date End Date Liban Leos PCP - General Family Medicine 10/08/21 [address] [place] [address] Ernie Pompa MD MD Nephrology 10/08/[address] [place] [id number] documented as of this encounter
--- OUTSIDE RECORDS SUMMARY | 2022-02-24 13:22 | XMS_ITS | Encounter Summary ---
:1945 Author Organization [facility] Address [address] [place] [address] Care Team Providers Name Role Phone Liban [...] on filedocumented in this encounter Care Teams Child Protective Services Social Worker Relationship Specialty Start Date End Date Liban Leos PCP - General Family Medicine 10/08/21 [address] [place], [place] [phone] Ernie Pompa MD MD Nephrology 10/08/21 [address] [place] [address] documented as of this encounter
--- OUTSIDE RECORDS SUMMARY | 2022-02-24 13:22 | XMS_ITS | Encounter Summary ---
:1945 Author Organization [facility] Address [address] [place] [address] Care Team Providers Name Role Phone Liban [...] documented as of this encounter Care Teams Engine Test Cell Technician Relationship Specialty Start Date End Date Liban Leos PCP - General Family Medicine 10/08/21 [address] [place] [address] Ernie Pompa MD MD Nephrology 10/08/21 [address] [place], [place] [phone] documented as of this encounter
--- OUTSIDE RECORDS SUMMARY | 2022-02-24 13:22 | XMS_ITS | Encounter Summary ---
:1945 Author Organization [facility] Address [address] [place] [address] Care Team Providers Name Role Phone Liban Leos Primary Care Provider Ernie Pompa MD Unavailable Reason for Visit Auth/Cert Specialty Diagnoses / Procedures Referred By Contact Refer red To Contact Med Surg Diagnoses UGI bleed UGI bleed 5 Medical Surgical [address] [place], [place] [address] Phone: Fax: Referral ID Status Reason Start Date Expiration Date Visits Requ ested Visits Authorized [id number] 1 1 Encounter Details Date Type Department Care Team Description 10/10/2021 Anesthesia Event [facility] Olvin Mosley berlin PeriOp Services MD [place] [address] [place], [place] ANESTHESIA [phone] [address] [phone] [place] [phone] Anesthesia Record Procedure Summary Procedure Name Responsible Anesthesia Start Anesthesia Stop Anesthesiologist Time Time ESOPHAGOGASTRODUODENOSCOPY Herman Mosley 10/10/21 0842 09/18 07/09 0918 biopsies (Mouth) MD [place] Events Date Time Event Comment 10/10/2021 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 The f irst vital signs recorded are pre- inducti on. Yamilka Bear APRN DRY HOUSE WORKER 0845 An Start Data 0857 Present 0912 [...] 1543 by Access exact date); 1543 Kaylee Trejo, (unknown exact time); RN Left; Forearm Incision/Surgical Site 10/10/21; 0906; 10/10/21 0906 by Mouth; scope Essence Walton, OVI insertion only Peripheral IV 10/08/21; 18 G; 10/08/21 0000 by 10/11/21 2102 b y Anterior, Right Kayla Thompson, OVI Inpatient, Nurse Peripheral IV 10/08/21; Right; 10/08/21 0000 by 10/11/21 2102 by Wrist Kayla Thompson, OVI Inpatient, Nurse Peripheral IV 10/09/21; 0851; 20 G; 10/09/21 0851 by 10/11/21 2102 by BD; Anterior, Right; Essence Osuna, OVI Inpatien t, Nurse Lower forearm; Tolerated well [...] 0918 documented in this encounter Care Teams Dispatcher Clerk Relationship Specialty Start Date End Date Liban Leos PCP - General Family Medicine 10/08/21 [address] [place] [address] Ernie Pompa MD MD Nephrology 10/08/21 [address] [place] [address] documented as of this encounter
--- OUTSIDE RECORDS SUMMARY | 2022-02-24 13:23 | XMS_ITS | Encounter Summary ---
:1945 Author Organization [facility] Address [facility] [place] [address] Care Team Providers Name Role Phone Unavailable Primary Care Provider Unavailable Encounter Details Date Type Department Care Team Description 04/03/2019 Records - [facility] GERIATRIC SERVICES Laboratory OF [place] [phone] [place], [place] [phone] Social History Tobacco Use Types Packs/Day Years Used Date Smoking Tobacco: Never Assessed Sex Assigned at Date Recorded Not on file documented as of this encounter Plan of Treatment Not on filedocumented as of this encounter Procedures Procedure Name Priority Date/Time Associated Diagnosis Comme nts BASIC METABOLIC Routine 04/04/2019 6:30 AM Result s for this PANEL [employer] SOFTWARE SUPPORT procedure are i n the results section. CBC WITH PLATELETS Routine 04/04/2019 6:30 AM Res ults for this [employer] procedure are i n the results section. documented in this encounter Results (ABNORMAL) CBC with platelets (04/04/2019 6:30 AM [facility] [employer]) [facility] Method Time Signature WBC 7.7 4.0 - 11.0 04/04/2019 HEALTH thou/uL 9:51 AM [facility] RBC Count 2.58 (L) 4.40 - 04/04/2019 HEALTH 6.20 9:51 AM [facility] Hemoglobin 8.0 (L) 14.0 - 04/04/2019 HEALTH 18.0 g/dL 9:51 AM [facility] Hematocrit 26.3 (L) 40.0 - 04/04/2019 HEALTH 54.0 % 9:51 AM [facility] MCV 102 (H) 80 - 100 04/04/2019 HEALTH fL 9:51 AM [facility] MCH 31.0 27.0 - 04/04/2019 HEALTH 34.0 pg 9:51 AM [facility] MCHC 30.4 (L) 32.0 - 04/04/2019 HEALTH 36.0 g/dL 9:51 AM [facility] RDW 20.2 (H) 11.0 - 04/04/2019 HEALTH 14.5 % 9:51 AM [facility] Platelet Count 142 140 - 440 04/04/2019 HEALTH thou/uL 9:51 AM [facility] Mean Platelet 11.0 8.5 - 12.5 04/04/2019 HEALTH Volume fL 9:51 AM [facility] Specimen Anatomical Collection Method / Collection Time Recei annie Time (Source) Location / Volume Laterality Blood specimen STRUCTURE OF RIGHT Venipuncture / 04/04/2019 6:30 9:35 (specimen) UPPER LIMB / Unknown AM [facility] AM [facility] Unknown [facility] LAB - BLOOD ORDERABLES Performing Organization Address [facility]/State/ZIP Code Phon e Number [facility] [address] [address] [facility] (ABNORMAL) Basic metabolic panel (04/04/2019 6:30 AM [facility]) [facility] Method Time Signature Sodium 140 136 - 145 04/04/2019 HEALTH mmol/L 11:11 AM [facility] Potassium 4.8 3.5 - 5.0 04/04/2019 HEALTH mmol/L 11:11 AM [facility] Chloride 104 98 - 107 04/04/2019 HEALTH mmol/L 11:11 AM [facility] Carbon Dioxide 23 22 - 31 04/04/2019 HEALTH (CO2) mmol/L 11:11 AM [facility] Anion Gap 13 5 - 18 04/04/2019 HEALTH mmol/L 11:11 AM [facility] Glucose 84 70 - 125 04/04/2019 HEALTH mg/dL 11:11 AM [facility] Calcium 10.2 8.5 - 10.5 04/04/2019 HEALTH mg/dL 11:11 AM [facility] Urea Nitrogen 92 (H) 8 - 28 04/04/2019 HEALTH mg/dL 11:11 AM [facility] Creatinine 3.32 (H) 0.70 - 04/04/2019 HEALTH 1.30 mg/dL 11:11 AM [facility] GFR Estimate If 22 (L) >60 04/04/2019 HEALTH Black mL/min/1.7 11:[address] LABORATORY GFR Estimate 18 (L) >60 04/04/2019 HEALTH mL/min/1.7 11:[address] LABORATORY Specimen Anatomical Collection Method / Collection Time Recei annie Time (Source) Location / Volume Laterality Blood specimen STRUCTURE OF RIGHT Venipuncture / 04/04/2019 6:30 9:35 (specimen) UPPER LIMB / Unknown AM [facility] AM [facility] Unknown Narrative [facility] - 04/04/2019 11:11 AM [facility] Fasting Glucose reference range is 70-99 mg/dL per [place] [employer] (ADA) maryan marrero. [facility] LAB - BLOOD ORDERABLES Performing Organization Address City/State/ZIP Code Phon e Number [place] [id number] [place] [address] [place] [address], [facility] documented in this encounter Visit Diagnoses Not on filedocumented in this encounter
--- OUTSIDE RECORDS SUMMARY | 2022-02-24 13:23 | XMS_ITS | Encounter Summary ---
:1945 Author Organization [facility] Address [address] [place] [address] Care Team Providers Name Role Phone Unavailable Primary Care Provider Unavailable Encounter Details Date Type Department Care Team Description 11/10/2021 Treatment [facility] Ernie Guzmán MD [address] [place] [address] [place], [place] [phone] (Wo rk) Social History Tobacco Use Types Packs/Day Years Used Date Smoking Tobacco: Unknown Comments: Smoking History Info:Patient n ot screened Sex Assigned at Date Recorded Not on file documented as of this encounter Miscellaneous Notes Dialysis Note - Ernie Pompa MD - 11/10/2021 11:27 AM CDT Date: Nov 10, 2021 Patient Name: Shaun Ocampo : 1945 Chart #: [id number] Sex: M This patient was personally seen [...] AM ) BP (sit): 111/39 AP(-) / ENERGY CONSERVATION DIRECTOR: 195/161 Pulse: 62 Chairside data as of [...] Values 08/27/2021 05/28/2021 04/23/2021 Access Flow [id number] Treatment Medication Orders Medication Sig Start Date [...] mcg IVP Every 2 weeks 10/27/2021 10/26/2022 BLOOMING MILL SUPERVISOR: Ernie Pompa MD LOCATION: [phone] SCHEDULE: -- 2nd Shift ACCESS: EDW: kg. [...] after extra UF run last week at [facility]. BP adequate, challengingEDW today. His breathing is improved. Also went to wound care clinic at [facility] and they dressedwounds and he has follow-up and instructions for dressings and cares. He has no new symptoms and otherwise feels well. 10/13: Had GI bleeding on Monday, went to ER after dialysis, admitted at [facility], had 3u blood, EGDwithout obvious [...] and do periodic extra UF treatments at [facility] rather than risk more hypotension post-tx with use of midodrine and additional UF during treatments. He has fistulagram last week, went well and access working well since. 08/11: Continues to have problems with fluid gains. we have spent considerable time discussing this, he is trying to work on this but can't seem to avoid large gains. Will go to [facility] for UF tomorrow, needs extra treatments every 2 weeks it looks like to maintain EDW. He does get SOB when >5K over dry weight in particular. 07/21/21: Continues to struggle with fluid gains, extra UF run scheduled tomorrow at [facility]. He does feel more SOB when fluid overloaded. No new symptoms otherwise, he is enjoying the nicer weather which allows him to do more activity and not sit at home and drink fluids which he thinks will help with IDWG's. 07/14/21: Continues to have high gains, unfortunately [facility] without staff to open tomorrow for extra [...] improving. Fluid gains continue to be high, [facility] not open on this week, says he will do his best withlimiting salt/fluid. HE does feel SOB with exertion with extra fluid on, no orthopnea. 05/26/21: Has SOB when >5 Kg over dry weight, extra run last week at [facility] helped. Trying his best with fluid restriction. [...] No open wounds on feet now. 03/24/21: Sahun feels well. He had extra run prior to [facility] and ran WThF that week an got [...] extra run and we discussed going to [facility] tomorrow for UF only run and he [...] again today, may need extra run at [facility] if can't get down over next week. 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 06/10: Doing well overall, no new complaints, [...] Went to Urgent care -> ER in [place] yesterday,CT with R hydro but no obstructive [...] (09/13/21) Vascular Access Assessment: Type of access: [id number]/2019 Surgeon - Lary KUMARW 08/2021: fistulagram at [facility] with angioplasty of stenosis completed [...]
--- OUTSIDE RECORDS SUMMARY | 2022-02-24 13:23 | XMS_ITS | Encounter Summary ---
:1945 Author Organization [facility] Address [address] [place] [address] Care Team Providers Name Role Phone Unavailable Primary Care Provider Unavailable Encounter Details Date Type Department Care Team Description 02/07/2022 Treatment [facility] f Herman Valdez MD [address] [place] [address] [place], [place] [phone] [place], [place] [phone] (Wo rk) Social History Tobacco Use Types Packs/Day Years Used Date Smoking Tobacco: Unknown Comments: Smoking History Info:Patient n ot screened Sex Assigned at Date Recorded Not on file documented as of this encounter Miscellaneous Notes Dialysis Note - Herman Figueredo MD - 02/07/2022 1:58 PM CST Date: Feb 07, 2022 Patient Name: Shaun Ocampo : 1945 Chart #: [id number] Sex: M This patient was personally seen for a complete visit as part of routine monthly dialysis care. A review of the dialysis treatment, blood pressure, estimated dry weight and recent lab values was made. These were discussed with the patient and staff as necessary. Treatment Data for 02/07/2022 started at:1:12 PM Dialyzer: 180NRe Optiflux Na: 138 mEq/L Bicarb: 34 mEq/L Dialysate: 2.0 K, 2.5 Ca, 1.0 Mg, 100 Dextrose (G2251) Dialysate/Machine Temp (prescribed): 36 C Dialysate/Machine Temp (actual): 36 C BFR (prescribed): 400 BFR (actual): 400 Prescribed time: 04:00 EDW: 94 kg Access Type: Active (In Use):AVFistula-Standard/Left Upper Arm Pre Dialysis Vitals (for 02/07/2022 1:06 PM ) Pre BP (sit): 91/49 Pre Wt: 97.9 kg Temp: 97.7 F Post Dialysis Vitals (for 02/04/2022 5:08 PM ) Post BP (sit): 97/44 Post Wt: 93.7 kg Current Dialysis Vitals (for 02/07/2022 1:31 PM ) BP (sit): 123/54 AP(-) / HAND ETCHER HELPER: 182/148 Pulse: 66 Chairside data as of 02/07/2022 1:31 PM Last 3 Treatments 02/04/2022 02/02/2022 01/31/2022 EDW (kg) 94 94 94 Weight Pre (kg) 98.5 97.8 100 Weight Post (kg) 93.7 94 95 Dialytic Weight Loss (kg) -4.8 -3.8 -5 EDW Deviation (kg) -0.3 0 1 BP Sit Pre 125/43 110/51 114/47 BP Sit Post 97/44 98/38 116/37 UF Rate (mL/kg/hr) 13 10 13 Prescribed BFR 400 400 400 Average Delivered BFR 450 450 460 Prescribed Treatment Time 04:00 04:00 04:00 Actual Treatment Time 04:00 04:02 04:03 Last 3 Values 01/19/2022 08/27/2021 05/28/2021 Access Flow [id number] GIN POLE OPERATOR: Herman Figueredo MD LOCATION: [phone] SCHEDULE: -- 3rd Shift EDW: kg. DIALYZER: HD DURATION: NEEDLE SIZE: ANTICOAG: BATH: QB: ml/min QD: ml/min Subjective Tolerating dialysis well. 02/07/22: Got out of [facility] last Mon. Dtr stayed with him first 2 nights but doesn't need to stay anymore. he will stay at [facility] until he starts driving again, then will return to [facility] (clinics are equi-distance, he just would rather drive away from [place] than into them). Appetite is good, no SOB or CP 01/26/22: Feels better overall. still at [facility], not sure how much longer but he wants to get home and family plans to move in with him. Appetite is OK but the food is terriible at [facility]CU. Was not getting low K+ items but is now. trying to drink less and only gained 1.7 from Monday. residual cough but no SSCP. Mild GREY. not back to baseline, yet. 01/17/22: My first time meeting him. first time at [facility] today. followed by Dr. Pompa at . At [facility] 12/27-01/14/22 after prolonged hospitalization for CAP + severe Pulm HTN with high PCWP, s/predo TAVR/PCI, etc. I reviewed the [facility] d/c summary. new EDW never called here nor were there orders for ,mid-run Midodrine. , looks like his standing wt at [facility] 01/14 pre- Hd was 93.6 and he pulled 2.7 kg on run. D/c'd to Rehab in so will run here. is very tired today. soft BP's. no midodrine here to use. will d/w his dtr when she arrives to take him back to Rehab. 12/08: Continues to do better with fluid [...] after extra UF run last week at [facility]. BP adequate, challengingEDW today. His breathing is improved. Also [facility] and they dressedwounds and he has follow-up and instructions for dressings and cares. He has no new symptoms and otherwise feels well. 10/13: Had GI bleeding on Monday, went to ER after dialysis, admitted at [facility], had 3u blood, EGDwithout obvious [...] and do periodic extra UF treatments at [facility] rather than risk more hypotension post-tx with use of midodrine and additional UF during treatments. He has fistulagram last week, went well and access working well since. 08/11: Continues to have problems with fluid gains. we have spent considerable time discussing this, he is trying to work on this but can't seem to avoid large gains. Will go to [facility] for UF tomorrow, needs extra treatments every 2 weeks it looks like to maintain EDW. He does get SOB when >5K over dry weight in particular. 07/21/21: Continues to struggle with fluid gains, extra UF run scheduled tomorrow at [facility]. He does feel more SOB when fluid overloaded. No new symptoms otherwise, he is enjoying the nicer weather which allows him to do more activity and not sit at home and drink fluids which he thinks will help with IDWG's. 07/14/21: Continues to have high gains, unfortunately [facility] without staff to open tomorrow for [...] had steroid injections in knees yesterday at [facility]. To do PT as well. He pulled muscle in his lower arm on L side last week getting into car, hurt a lot but is improving. Fluid gains continue to be high, [facility] not open on this week, says he will do his best withlimiting salt/fluid. HE does feel SOB with exertion with extra fluid on, no orthopnea. 05/26/21: Has SOB when >5 Kg over dry weight, extra run last week at [facility] helped. Trying his best with fluid [...] extra run and we discussed going to [facility] tomorrow for UF only run and [...] again today, may need extra run at [facility] if can't get down over next [...] for ureteral ?tumor early next month in [place]. 06/10: Doing well overall, no new complaints, [...] Went to Urgent care -> ER in [place] yesterday,CT with R hydro but no obstructive [...] yet and still with mild edema. 08/27: Shuan is doing really well, no symptoms with [...] bilaterally. Cardiovascular - Regular rate. Regular rhythm. Murmur heard. Edema - Trace edema. Access - AVF working well Medication List Medication Sig Start Date albuterol [...] Medications reviewed and no changes were made. 01/17/22: see [facility] d/c summary Treatment and Adequacy Assessment BUN mg/dL 51 (02/02/22) 79 (01/21/22) 51 (12/22/21) 48 (11/24/21) 38 (10/20/21) UREA NITROGEN (MG/DL) IN SER/PLAS - POST DIALYSIS mg/dL 12 (02/02/22) 13 (11/24/21) 11 (10/20/21) 12 (09/22/21) 16 (08/30/21) URR % 76 (02/02/22) 73 (11/24/21) 71 (10/20/21) 71 (09/22/21) 71 (08/30/21) spKt/V Gotch 1.79 (02/02/22) 1.64 (11/24/21) 1.55 (10/20/21) 1.53 (09/22/21) 1.39 (08/18/21) eKdrt/V 1.56 (02/02/22) 1.42 (11/24/21) 1.35 (10/20/21) 1.33 (09/22/21) 1.21 (08/18/21) spKt/V (Daugirdas II) 1.7400 (02/02/22) 1.5600 (11/24/21) 1.4800 (10/20/21) 1.4700 (09/22/21) 1.4900 (08/30/21) Dialysis is adequate. Achieves prescribed time - Yes Achieves prescribed frequency - Yes Missed treatments in past 30 days - 0 Continue current prescription. Vascular Access Assessment Type of access: [id number] Surgeon Annita GARDNER 08/2021: fistulagram at [facility] with angioplasty of stenosis completed Anemia Assessment HEMOGLOBIN (G/DL) IN BLOOD g/dL 7.4 (02/02/22) 7.1 (01/26/22) 7.4 (01/21/22) 10.9 (12/22/21) 11.0 (12/15/21) PLATELETS 1000/mcL 114 (02/02/22) 130 (12/22/21) 179 (11/24/21) 184 (10/20/21) 250 (09/22/21) IRON SATURATION % 32 (08/18/21) 36 (07/21/21) 31 (06/23/21) 38 (05/26/21) 35 (05/19/21) FERRITIN ng/mL 630 (12/22/21) 357 (09/22/21) 640 (06/23/21) 640 (05/21/21) 857 (03/24/21) Hemoglobin is below goal. Iron Saturation is at goal. Ferritin is at goal. Will adjust NATALEE and intravenous iron per protocol. 01/26/22: Hgb pending this week. Try to avoid RBC. Nutritional and Metabolic Assessment ALBUMIN (G/DL) g/dL 3.5 (02/02/22) 3.8 (12/22/21) 3.7 (11/24/21) 3.8 (10/20/21) 3.7 (09/22/21) Sodium mEq/L 130 (02/02/22) 133 (01/21/22) 133 (12/22/21) 137 (11/24/21) 135 (10/20/21) POTASSIUM (MMOL/L) IN SER/PLAS mEq/L 5.0 (02/02/22) 6.8 (01/26/22) 6.6 (01/21/22) 5.8 (12/22/21) 5.6 (11/24/21) BICARBONATE (CO2) mEq/L 29 (02/02/22) 27 (01/21/22) 24 (12/22/21) 28 (11/24/21) 26 (10/20/21) 25 OH VITAMIN D ng/mL 56.0 (09/22/21) 38.3 (03/24/21) Albumin is below goal. Encourage high-biological value protein intake. Potassium is at goal. Encourage low potassium diet. Bicarbonate is above goal. Decrease bicarbonate in dialysate. 02/07/22: back home and following renal diet as best he can 01/26/22: is now on renal diet at [facility] (they were giving him ice cream and milk with most meals) Bone and Mineral Metabolism Assessment CALCIUM mg/dL 9.9 (02/02/22) 10.7 (01/21/22) 10.2 (12/22/21) 9.4 (11/24/21) 9.5 (10/20/21) CALCIUM (MG/DL) CORRECTED FOR ALBUMIN IN SER/PLAS mg/dL 10.3 (02/02/22) 10.4 (12/22/21) 9.6 (11/24/21) 9.7 (10/20/21) 9.4 (09/22/21) PHOSPHATE (MG/DL) IN SER/PLAS mg/dL 3.3 (02/02/22) 5.5 (12/22/21) 4.2 (11/24/21) 2.9 (10/20/21) 3.9 (09/22/21) CALCIUM PHOSPHORUS PRODUCT, COR 34 (02/02/22) 57 (12/22/21) 40 (11/24/21) 28 (10/20/21) 37 (09/22/21) IPTH pg/mL 264 (02/02/22) 451 (12/22/21) 369 (11/24/21) 203 (10/27/21) 722 (09/22/21) Corrected Calcium is above goal. Phosphorous is at goal. Ca X P product is above goal. Intact PTH is at goal. Technology Assistant will adjust binders and vitamin D per protocol and continue to provide dietary education. He has severe nausea and vomiting with Sensipar, can not use anymore Continue Parsabiv but reduce hectorol. Cardiovascular Assessment Blood pressures reviewed and are acceptable. Intradialytic weight gains are appropriate. Estimated dry weight is appropriate. Continue same cardiovascular medications. 01/26/22: back on Midodrine pre and mid as of 01/19/22 here. 01/17/22: last standing wt 93.6 pre-HD at [facility] 01/14/22 then pulled 2.7 kg. Notes indicate soft BP's but OK with pre- and mid-Midodrine. will resume here. EDW should be about 92, but he came off today at 95 and HoTN, so monitor. Transplant Status: Patient is not a candidate. Weight, co-morbidities, age Resuscitation Status 01/17/22: came off early today d/t HoTN Herman Figueredo MD [ Signed And locked electronically On 02/07/2022 at 02:11:01 PM ] Transcribed: Herman Figueredo ( 02/07/2022 ) documented in this encounter Plan of Treatment Not on filedocumented as of this encounter Visit Diagnoses Not on filedocumented in this encounter
--- OUTSIDE RECORDS SUMMARY | 2022-02-24 13:23 | XMS_ITS | Encounter Summary ---
:1945 Author Organization [facility] Address [address] [place] [address] Care Team Providers Name Role Phone Unavailable Primary Care Provider Unavailable Encounter Details Date Type Department Care Team Description 10/27/2021 Treatment [facility] f Ernie Guzmán MD [address] [place] [address] [place], [place] [phone] (Wo rk) Social History Tobacco Use Types Packs/Day Years Used Date Smoking Tobacco: Unknown Comments: Smoking History Info:Patient n ot screened Sex Assigned at Date Recorded Not on file documented as of this encounter Miscellaneous Notes Dialysis Note - Ernie Pompa MD - 10/27/2021 10:07 AM CDT Date: Oct 27, 2021 Patient Name: Shaun Ocampo : 1945 Chart #: [id number] Sex: M This patient was personally seen [...] AM ) BP (sit): 99/43 AP(-) / CONTROL DIRECTOR: 176/154 Pulse: 62 Chairside data as of [...] 08/27/2021 05/28/2021 04/23/2021 Access Flow [id number] Treatment Medication Orders Medication Sig Start Date [...] mcg IVP Every 2 weeks 10/27/2021 10/26/2022 COUNTY AUDITOR: Ernie Pompa MD LOCATION: [place] [phone] SCHEDULE: -W- 2nd Shift EDW: kg. DIALYZER: HD DURATION: NEEDLE SIZE: ANTICOAG: BATH: QB: ml/min QD: ml/min Subjective Tolerating dialysis well. 10/27/21: He is doing much better after extra UF run last week at [facility]. BP adequate, challengingEDW today. His breathing is [...] and do periodic extra UF treatments at [facility] rather than risk more hypotension post-tx with use of midodrine and additional UF during treatments. He has fistulagram last week, went well and access working well since. 08/11: Continues to have problems with fluid gains. we have spent considerable time discussing this, he is trying to work on this but can't seem to avoid large gains. Will go to [facility] for UF tomorrow, needs extra treatments every 2 weeks it looks like to maintain EDW. He does get SOB when >5K over dry weight in particular. 07/21/21: Continues to struggle with fluid gains, extra UF run scheduled tomorrow at [facility]. He does feel more SOB when fluid overloaded. No new symptoms otherwise, he is enjoying the nicer weather which allows him to do more activity and not sit at home and drink fluids which he thinks will help with IDWG's. 07/14/21: Continues to have high gains, unfortunately [facility] without staff to open tomorrow for extra [...] improving. Fluid gains continue to be high, [facility] not open on this week, says he will do his best withlimiting salt/fluid. HE does feel SOB with exertion with extra fluid on, no orthopnea. 05/26/21: Has SOB when >5 Kg over dry weight, extra run last week at [facility] helped. Trying his best with fluid restriction. [...] extra run and we discussed going to [facility] tomorrow for UF only run and he [...] again today, may need extra run at [facility] if can't get down over next week. 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 06/10: Doing well overall, no new complaints, [...] Went to Urgent care -> ER in [place] yesterday,CT with R hydro but no [...] He had infiltration last week, dialyzed at [facility] on Sat and went well, access [...] prescription. Vascular Access Assessment Type of access: [id number] Surgeon - Lary GARDNER 08/2021: [place] [facility] [place] [...] below goal. Intact PTH is above goal. Soda Maker will adjust binders and vitamin D [...] high Extra UF run needed occasionally at [facility] when they are open, did last week [...]
--- OUTSIDE RECORDS SUMMARY | 2022-02-24 13:23 | XMS_ITS | Encounter Summary ---
:1945 Author Organization [place] Address [facility] [place] [address] Care Team Providers Name Role Phone Unavailable Primary Care Provider Unavailable Encounter Details Date Type Department Care Team Description 03/31/2019 Records - [facility] GERIATRIC SERVICES Laboratory OF [place] [phone] [place], [place] [phone] Social History Tobacco Use Types Packs/Day Years Used Date Smoking Tobacco: Never Assessed Sex Assigned at Date Recorded Not on file documented as of this encounter Plan of Treatment Not on filedocumented as of this encounter Procedures Procedure Name Priority Date/Time Associated Diagnosis Comme nts BASIC METABOLIC Routine 04/01/2019 7:55 AM Result s for this PANEL IT SUPPORT TECHNICIAN procedure are i n the results section. CBC WITH PLATELETS Routine 04/01/2019 7:55 AM Res ults for this IT SUPPORT TECHNICIAN procedure are i n the results section. documented in this encounter Results (ABNORMAL) CBC with platelets (04/01/2019 7:55 AM IT SUPPORT TECHNICIAN) [facility] Method Time Signature WBC 7.6 4.0 - 11.0 04/01/2019 HEALTH thou/uL 12:59 PM [facility] RBC Count 2.48 (L) 4.40 - 04/01/2019 HEALTH 6.20 12:59 PM [facility]ATORY Hemoglobin 7.7 (L) 14.0 - 04/01/2019 HEALTH 18.0 g/dL 12:59 PM [facility] Hematocrit 25.1 (L) 40.0 - 04/01/2019 HEALTH 54.0 % 12:59 PM [facility] MCV 101 (H) 80 - 100 04/01/2019 HEALTH fL 12:59 PM [facility] MCH 31.0 27.0 - 04/01/2019 HEALTH 34.0 pg 12:59 PM [facility] MCHC 30.7 (L) 32.0 - 04/01/2019 HEALTH 36.0 g/dL 12:59 PM [facility] RDW 19.7 (H) 11.0 - 04/01/2019 HEALTH 14.5 % 12:59 PM [facility] Platelet Count 137 (L) 140 - 440 04/01/2019 HEALTH thou/uL 12:59 PM [facility] Mean Platelet 10.7 8.5 - 12.5 04/01/2019 HEALTH Volume fL 12:59 PM [facility] Specimen Anatomical Collection Method / Collection Time Recei annie Time (Source) Location / Volume Laterality Blood specimen STRUCTURE OF RIGHT Venipuncture / 04/01/2019 7:55 (specimen) UPPER LIMB / Unknown AM IT SUPPORT TECHNICIAN 12:23 PM IT SUPPORT TECHNICIAN Unknown Alison Hollins LAB - BLOOD ORDERABLES Performing Organization Address [facility]/State/ZIP Code Phon e [place] [address] [address] [facility] (ABNORMAL) Basic metabolic panel (04/01/2019 7:55 AM IT SUPPORT TECHNICIAN) [facility] Method Time Signature Sodium 137 136 - 145 04/01/2019 HEALTH mmol/L 1:17 PM [facility] Potassium 4.7 3.5 - 5.0 04/01/2019 HEALTH mmol/L 1:17 PM [facility] Chloride 105 98 - 107 04/01/2019 HEALTH mmol/L 1:17 PM [facility] Carbon Dioxide 22 22 - 31 04/01/2019 HEALTH (CO2) mmol/L 1:17 PM [facility] Anion Gap 10 5 - 18 04/01/2019 HEALTH mmol/L 1:17 PM [facility] Glucose 83 70 - 125 04/01/2019 HEALTH mg/dL 1:17 PM [facility] Calcium 10.1 8.5 - 10.5 04/01/2019 HEALTH mg/dL 1:17 PM [facility] Urea Nitrogen 93 (H) 8 - 28 04/01/2019 HEALTH mg/dL 1:17 PM [facility] Creatinine 3.02 (H) 0.70 - 04/01/2019 HEALTH 1.30 mg/dL 1:17 PM [facility] GFR Estimate If 25 (L) >60 04/01/2019 HEALTH Black mL/min/1.7 1:[address] LABORATORY GFR Estimate 21 (L) >60 04/01/2019 HEALTH mL/min/1.7 1:[address] LABORATORY Specimen Anatomical Collection Method / Collection Time Recei annie Time (Source) Location / Volume Laterality Blood specimen STRUCTURE OF RIGHT Venipuncture / 04/01/2019 7:55 (specimen) UPPER LIMB / Unknown AM IT SUPPORT TECHNICIAN 12:23 PM IT SUPPORT TECHNICIAN Unknown Narrative [facility] - 04/01/2019 1:17 PM IT SUPPORT TECHNICIAN Fasting Glucose reference range is 70-99 mg/dL per [place] [employer] (ADA) maryan marrero. Alison Hollins LAB - BLOOD ORDERABLES Performing Organization Address City/State/ZIP Code Phon [place] [id number] [place], [place] [address]O LABORATORY [address] [place] [id number], [facility] documented in this encounter Visit Diagnoses Not on filedocumented in this encounter
--- OUTSIDE RECORDS SUMMARY | 2022-02-24 13:23 | XMS_ITS | Encounter Summary ---
:1945 Author Organization [facility] Address [address] [place] [address] Care Team Providers Name Role Phone Unavailable Primary Care Provider Unavailable Encounter Details Date Type Department Care Team Description 02/18/2022 Treatment [facility] f Herman Val[place] MD [address] [place] [address] [place], [place] [phone] [place], [place] [address] (Wo rk) Social History Tobacco Use Types Packs/Day Years Used Date Smoking Tobacco: Unknown Comments: Smoking History Info:Patient n ot screened Sex Assigned at Date Recorded Not on file documented as of this encounter Miscellaneous Notes Dialysis Note - Herman Figueredo MD - 02/18/2022 2:13 PM CST Date: Feb 18, 2022 Patient Name: Shaun Ocampo : 1945 Chart #: [id number] Sex: M This patient was personally seen for a complete visit as part of routine monthly dialysis care. A review of the dialysis treatment, blood pressure, estimated dry weight and recent lab values was made. These were discussed with the patient and staff as necessary. Treatment Data for 02/18/2022 started at:1:15 PM Dialyzer: 180NRe Optiflux Na: 138 mEq/L Bicarb: 32 mEq/L Dialysate: 2.0 K, 2.5 Ca, 1.0 Mg, 100 Dextrose (G2251) Dialysate/Machine Temp (prescribed): 36 C Dialysate/Machine Temp (actual): 36 C BFR (prescribed): 400 BFR (actual): n/a Prescribed time: 04:00 EDW: 94 kg Access Type: Active (In Use):AVFistula-Standard/Left Upper Arm Pre Dialysis Vitals (for 02/18/2022 1:10 PM ) Pre BP (sit): 150/70 Pre Wt: 96.3 kg Temp: 97.2 F Post Dialysis Vitals (for 02/16/2022 5:39 PM ) Post BP (sit): 123/44 Post Wt: 93.5 kg Chairside data as of 02/18/2022 1:10 PM Last 3 Treatments 02/16/2022 02/14/2022 02/11/2022 EDW (kg) 94 94 94 Weight Pre (kg) 97.2 97.7 97.1 Weight Post (kg) 93.5 94.3 93.6 Dialytic Weight Loss (kg) -3.7 -3.4 -3.5 EDW Deviation (kg) -0.5 0.3 -0.4 BP Sit Pre 146/65 137/55 130/54 BP Sit Post 123/44 110/50 95/43 UF Rate (mL/kg/hr) 10 9 9 Prescribed BFR 400 400 400 Average Delivered BFR 450 460 450 Prescribed Treatment Time 04:00 04:00 04:00 Actual Treatment Time 04:02 04:01 04:01 Last 3 Values 01/19/2022 08/27/2021 05/28/2021 Access Flow [id number] Treatment Medication Orders Medication Sig Start Date End Date Doxercalciferol (Hectorol) 4 mcg IVP Every Treatment 02/07/2022 02/03/2023 Etelcalcetide (Parsabiv) 10 mg IVP 3X Week Post Dialysis 01/17/2022 01/16/2023 Heparin Sodium (Porcine) 1,000 Units/mL Systemic 2000 units IVP Every Treatment 01/17/2022 01/16/2023 Heparin Sodium (Porcine) 1,000 Units/mL Systemic 1000 units IVP Every Treatment 01/17/2022 01/16/2023 Mircera 225 mcg IVP Every 2 weeks 02/07/2022 02/06/2023 RELAY SHOP SUPERVISOR: Herman Figueredo MD LOCATION: [place] [phone] SCHEDULE: M-W-F 3rd Shift EDW: kg. DIALYZER: HD DURATION: NEEDLE SIZE: ANTICOAG: BATH: QB: ml/min QD: ml/min Subjective Tolerating dialysis well. 02/18/22: Feels better. plans to stay at [place] until he starts driving again, Mar 20 or so. No SOB or CP. Good appetite. 02/07/22: Got out of [facility] last Mon. Dtr stayed with him first 2 nights but doesn't need to stay anymore. he will stay at [facility] until he starts driving again, then will return to [facility] (clinics are equi-distance, he just would rather drive away from [facility] than into them). Appetite is good, no SOB or CP 01/26/22: Feels better overall. still at [facility], not sure how much longer but he wants to get home and family plans to move in with him. Appetite is OK but the food is terriible at [facility]. Was not getting low K+ items but is now. trying to drink less and only gained 1.7 from Monday. residual cough but no SSCP. Mild GREY. not back to baseline, yet. 01/17/22: My first time meeting him. first time at [place] today. followed by Dr. Pompa at . At [facility] 12/27-01/14/22 after prolonged hospitalization for CAP + severe Pulm HTN with high PCWP, s/predo TAVR/PCI, etc. I reviewed the [facility] d/c summary. new EDW never called here nor were there orders for ,mid-run Midodrine. , looks like his standing wt at [facility] 01/14 pre- Hd was 93.6 [...] after extra UF run last week at [place]. BP adequate, challengingEDW today. His breathing is improved. Also went to wound care clinic at [facility] and they dressedwounds and he has follow-up and instructions for dressings and cares. He has no new symptoms and otherwise feels well. 10/13: Had GI bleeding on Monday, went to ER after dialysis, admitted at [facility], had 3u blood, EGDwithout obvious source, ASA [...] and do periodic extra UF treatments at [place] rather than risk more hypotension post-tx with use of midodrine and additional UF during treatments. He has fistulagram last week, went well and access working well since. 08/11: Continues to have problems with fluid gains. we have spent considerable time discussing this, he is trying to work on this but can't seem to avoid large gains. Will go to [place] for UF tomorrow, needs extra treatments every 2 weeks it looks like to maintain EDW. He does get SOB when >5K over dry weight in particular. 07/21/21: Continues to struggle with fluid gains, extra UF run scheduled tomorrow at [place]. He does feel more SOB when fluid overloaded. No new symptoms otherwise, he is enjoying the nicer weather which allows him to do more activity and not sit at home and drink fluids which he thinks will help with IDWG's. 07/14/21: Continues to have high gains, unfortunately [place] without staff to open tomorrow for extra [...] improving. Fluid gains continue to be high, [facility] not open on this week, says he will do his best withlimiting salt/fluid. HE does feel SOB with exertion with extra fluid on, no orthopnea. 05/26/21: Has SOB when >5 Kg over dry weight, extra run last week at [place] helped. Trying his best with fluid restriction. [...] extra run and we discussed going to [place] tomorrow for UF only run and he [...] again today, may need extra run at [place] if can't get down over next week. 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 06/10: Doing well overall, no new [...] Went to Urgent care -> ER in [place] yesterday,CT with R hydro but no obstructive [...] had infiltration last week, dialyzed at [facility] on Sat and went well, [...] prescription. Vascular Access Assessment Type of access: Whsyken01/2019 Surgeon - Lary GARDNER 08/2021: fistulagram at [facility] with angioplasty of stenosis completed Anemia Assessment HEMOGLOBIN (G/DL) IN BLOOD g/dL 8.6 (02/16/22) 8.4 (02/09/22) 7.4 (02/02/22) 7.1 (01/26/22) 7.4 (01/21/22) PLATELETS 1000/mcL 114 (02/02/22) 130 (12/22/21) 179 [...] 01/26/22: is now on renal diet at [facility] (they were giving him ice cream and milk with most meals) Bone and Mineral Metabolism Assessment CALCIUM mg/dL 10.2 (02/16/22) 9.9 (02/02/22) 10.7 (01/21/22) 10.2 (12/22/21) 9.4 (11/24/21) CALCIUM (MG/DL) CORRECTED FOR ALBUMIN IN SER/PLAS [...] Corrected Calcium is above goal. Phosphorous is below goal. Ca X P product is at goal. Intact PTH is at goal. Roll Cutter will adjust binders and vitamin D per protocol and continue to provide dietary education. He has severe nausea and vomiting with Sensipar, can not use anymore Continue Parsabiv but reduce hectorol. Cardiovascular Assessment Blood pressures reviewed and are acceptable. Intradialytic weight gains are appropriate. Estimated dry weight is too high, will decrease. Continue same cardiovascular medications. 02/18/22: decrease 93.5 01/26/22: back on Midodrine pre and mid [...] MD [ Signed And locked electronically On 02/18/2022 at 02:21:25 PM ] Transcribed: Herman Figueredo ( 02/18/2022 ) documented in this encounter Plan of Treatment Not on filedocumented as of this encounter Visit Diagnoses Not on filedocumented in this encounter
--- OUTSIDE RECORDS SUMMARY | 2022-02-24 13:23 | XMS_ITS | Encounter Summary ---
:1945 Author Organization [facility] Address [address] [place] [address] Care Team Providers Name Role Phone Unavailable Primary Care Provider Unavailable Encounter Details Date Type Department Care Team Description 01/26/2022 Orders Only [facility] O f Herman Valdez MD [address] [place] [address] [address] [place], [place] [address] (Wo rk) Social History Tobacco Use Types Packs/Day Years Used Date Smoking Tobacco: Unknown Comments: Smoking History Info:Patient n ot screened Sex Assigned at Date Recorded Not on file documented as of this encounter Plan of Treatment Not on filedocumented as of this encounter Procedures Procedure Name Priority Date/Time Associated Diagnosis Comme nts HEMATOLOGY Routine 01/26/2022 Results for thi s procedure are in the resu lts section. CHEMISTRY Routine 01/26/2022 Results for thi s procedure are in the resu lts section. documented in this encounter Results (ABNORMAL) HEMATOLOGY (01/26/2022) Analysis Performed At Patho logist Time Signature Hemoglobin 7.1 (L) 14.0 - [facility] 18.0 g/dL [facility] Hemoglobin x 3 21.3 (L) 42.0 - [facility] 54.0 % [facility] Specimen (Source) Anatomical Collection Method Collection Time Re ceived Time Location / / Volume Laterality 01/26/2022 01/27/2022 7:11 PM LUMBER PILER Narrative [facility] - 01/27/2022 Unless otherwise specified, test(s) performed at: [email or web address], [address] [place] [address], [place] [address] ART SALES CONSULTANT: Alhaji Noguera M.D., Ph.D For any questions, please call customer service at FREQUENCY:OTHER Resulting Agency Comment Specimen source: Blood Herman Figueredo MD LAB BLOOD ORDERABLES Performing Organization Address City/[facility] Code Phon e Number [facility] (ABNORMAL) [facility] Chemistry (01/26/2022) P athologist Signature Potassium 6.8 (H) 3.5 - 5.1 [facility] mEq/L [facility] Comment: Verified by repeat analysis. Specimen (Source) Anatomical Collection Method Collection Time Re ceived Time Location / / Volume Laterality 01/26/2022 01/27/2022 6:46 AM LUMBER PILER Narrative [facility] - 01/27/2022 Unless otherwise specified, test(s) performed at: [email or web address], [address] [place] [address] [facility] [place] [address] ART SALES CONSULTANT: Alhaji Noguera M.D., Ph.D For any questions, please call customer service at FREQUENCY:OTHER Resulting Agency Comment Specimen source: Serum Herman Figueredo MD LAB BLOOD ORDERABLES Performing Organization Address City/State/[facility] Code Phon e Number [facility] documented in this encounter Visit Diagnoses Not on filedocumented in this encounter
--- OUTSIDE RECORDS SUMMARY | 2022-02-24 13:23 | XMS_ITS | Encounter Summary ---
:1945 Author Organization [facility] Address [address] [place] [address] Care Team Providers Name Role Phone Unavailable Primary Care Provider Unavailable Encounter Details Date Type Department Care Team Description 12/22/2021 Orders Only [facility] O f Ernie Guzmán MD [address] [place] [address] [place], [place] [phone] (Wo rk) Social History Tobacco Use [...] 12/23/2021 Unless otherwise specified, test(s) performed at: [facility], [address] [place] [address], [place] [address] OPTICAL MANUFACTURING TECHNICIAN: Alhaji Noguera M.D., Ph.D For any [...] 12/23/2021 Unless otherwise specified, test(s) performed at: [facility], [address] [place] [address], [place] [address] OPTICAL MANUFACTURING TECHNICIAN: Alhaji Noguera M.D., Ph.D For any [...] 12/23/2021 Unless otherwise specified, test(s) performed at: [facility], [address] [place] [address], [place] [address] OPTICAL MANUFACTURING TECHNICIAN: Alhaji Noguera M.D., Ph.D For any questions, please call customer service at FREQUENCY:MONTHLY Resulting Agency Comment Specimen source: Blood Ernie Pompa MD LAB BLOOD ORDERABLES Performing Organization Address City/State/ZIP Code Phon e Number [facility] documented in this encounter Visit Diagnoses Not on filedocumented in this encounter
--- OUTSIDE RECORDS SUMMARY | 2022-02-24 13:23 | XMS_ITS | Encounter Summary ---
:1945 Author Organization [facility] Address [address] [place] [address] Care Team Providers Name Role Phone Unavailable Primary Care Provider Unavailable Encounter Details Date Type Department Care Team Description 01/26/2022 Treatment [facility] f Herman Valdez MD [address] [place] [address] [place], [place] [phone] [place], [place] [address] (Wo rk) Social History Tobacco Use Types Packs/Day Years Used Date Smoking Tobacco: Unknown Comments: Smoking History Info:Patient n ot screened Sex Assigned at Date Recorded Not on file documented as of this encounter Miscellaneous Notes Dialysis Note - Herman Figueredo MD - 01/26/2022 2:03 PM CST Date: Jan 26, 2022 Patient Name: Shaun Ocampo : 1945 Chart #: [id number] Sex: M This patient was personally seen for a complete visit as part of routine monthly dialysis care. A review of the dialysis treatment, blood pressure, estimated dry weight and recent lab values was made. These were discussed with the patient and staff as necessary. Treatment Data for 01/26/2022 started at:1:19 PM Dialyzer: 180NRe Optiflux Na: 138 mEq/L Bicarb: 34 mEq/L Dialysate: 2.0 K, 2.5 Ca, 1.0 Mg, 100 Dextrose (G2251) Dialysate/Machine Temp (prescribed): 36 C Dialysate/Machine Temp (actual): 36.1 C BFR (prescribed): 400 BFR (actual): 450 Prescribed time: 04:00 EDW: 94 kg Access Type: Active (In Use):AVFistula-Standard/Left Upper Arm Pre Dialysis Vitals (for 01/26/2022 1:14 PM ) Pre BP (sit): 110/48 Pre Wt: 98.3 kg Temp: 97.4 F Post Dialysis Vitals (for 01/24/2022 5:51 PM ) Post BP (sit): 122/44 Post Wt: 96 kg Current Dialysis Vitals (for 01/26/2022 1:31 PM ) BP (sit): 124/53 AP(-) / LIFE ENRICHMENT MANAGER: 221/165 Pulse: 67 Chairside data as of 01/26/2022 1:31 PM Last 3 Treatments 01/24/2022 01/21/2022 01/19/2022 EDW (kg) 94 94 94 Weight Pre (kg) 99.5 99.4 98.1 Weight Post (kg) 96 95.7 94.8 Dialytic Weight Loss (kg) -3.5 -3.7 -3.3 EDW Deviation (kg) 2 1.7 0.8 BP Sit Pre 123/58 140/55 116/41 BP Sit Post 122/44 118/55 102/38 UF Rate (mL/kg/hr) 9 10 8 Prescribed BFR 400 400 400 Average Delivered BFR 410 450 330 Prescribed Treatment Time 04:00 04:00 04:00 Actual Treatment Time 04:03 03:59 04:12 Last 3 Values 01/19/2022 08/27/2021 05/28/2021 Access Flow [id number] PONY WORKER: Herman Figueredo MD LOCATION: [phone] SCHEDULE: -W- 3rd Shift EDW: kg. DIALYZER: HD DURATION: NEEDLE SIZE: ANTICOAG: BATH: QB: ml/min QD: ml/min Subjective Tolerating dialysis well. 01/26/22: Feels better overall. still at TCU, [...] first time meeting him. first time at [facility] today. followed by Dr. Pompa at . At [facility] 12/27-01/14/22 after prolonged hospitalization for CAP + severe Pulm HTN with high PCWP, s/predo TAVR/PCI, etc. I reviewed the [facility] d/c summary. new EDW never called here nor were there orders for ,mid-run Midodrine. , looks like his standing wt at [facility] 01/14 pre- Hd was 93.6 and he pulled 2.7 kg on run. D/c'd to Rehab in [place] so will run here. is very tired [...] after extra UF run last week at [facility]. BP adequate, challengingEDW today. His breathing is improved. Also went to wound care clinic at [facility] and they dressedwounds and he has follow-up and instructions for dressings and cares. He has no new symptoms and otherwise feels well. 10/13: Had GI bleeding on Monday, went to ER after dialysis, admitted at [facility], had 3u blood, EGDwithout obvious source, ASA [...] and do periodic extra UF treatments at [facility] rather than risk more hypotension post-tx with use of midodrine and additional UF during treatments. He has fistulagram last week, went well and access working well since. 08/11: Continues to have problems with fluid gains. we have spent considerable time discussing this, he is trying to work on this but can't seem to avoid large gains. Will go to [facility] for UF tomorrow, needs extra treatments every 2 weeks it looks like to maintain EDW. He does get SOB when >5K over dry weight in particular. 07/21/21: Continues to struggle with fluid gains, extra UF run scheduled tomorrow at [facility]. He does feel more SOB when fluid overloaded. No new symptoms otherwise, he is enjoying the nicer weather which allows him to do more activity and not sit at home and drink fluids which he thinks will help with IDWG's. 07/14/21: Continues to have high gains, unfortunately [facility] without staff to open tomorrow for extra [...] improving. Fluid gains continue to be high, [facility] not open on this week, says he will do his best withlimiting salt/fluid. HE does feel SOB with exertion with extra fluid on, no orthopnea. 05/26/21: Has SOB when >5 Kg over dry weight, extra run last week at [facility] helped. Trying his best with fluid restriction. [...] extra run and we discussed going to [facility] tomorrow for UF only run and he [...] again today, may need extra run at [facility] if can't get down over next week. 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 06/10: Doing well overall, no new complaints, [...] Went to Urgent care -> ER in [place] yesterday,CT with R hydro but no obstructive [...] gastrointestinal bleeding 578.9 K92.89 Exam Respiratory - coarse bilaterally Cardiovascular - Regular rate. Regular rhythm. Murmur [...] summary Treatment and Adequacy Assessment BUN mg/dL 79 (01/21/22) 51 (12/22/21) 48 (11/24/21) 38 (10/20/21) 41 (09/22/21) UREA NITROGEN (MG/DL) IN SER/PLAS - POST [...] prescribed frequency - Yes Continue current prescription. 01/17/22: labs were at [facility] Vascular Access Assessment Type of access: [id number] Surgeon - Lary GARDNER 08/2021: fistulagram at [facility] with angioplasty of stenosis completed Anemia Assessment HEMOGLOBIN (G/DL) IN BLOOD g/dL 7.4 (01/21/22) 10.9 (12/22/21) 11.0 (12/15/21) 10.8 (12/08/21) 10.8 (12/01/21) PLATELETS 1000/mcL 130 (12/22/21) 179 (11/24/21) 184 (10/20/21) 250 (09/22/21) 101 (08/18/21) IRON SATURATION % 32 (08/18/21) 36 (07/21/21) 31 (06/23/21) 38 (05/26/21) 35 (05/19/21) FERRITIN ng/mL 630 (12/22/21) 357 (09/22/21) 640 (06/23/21) 640 (05/21/21) 857 (03/24/21) Hemoglobin is below goal. Iron Saturation is at goal. Ferritin is at goal. Will adjust NATALEE and intravenous iron per protocol. 01/26/22: Hgb pending this week. Try to avoid RBC. Nutritional and Metabolic Assessment ALBUMIN (G/DL) g/dL 3.8 (12/22/21) 3.7 (11/24/21) 3.8 (10/20/21) 3.7 (09/22/21) 3.6 (08/18/21) Sodium mEq/L 133 (01/21/22) 133 (12/22/21) 137 (11/24/21) 135 (10/20/21) 133 (09/22/21) POTASSIUM (MMOL/L) IN SER/PLAS mEq/L 6.6 (01/21/22) 5.8 (12/22/21) 5.6 (11/24/21) 5.0 (10/20/21) 5.7 (09/29/21) BICARBONATE (CO2) mEq/L 27 (01/21/22) 24 (12/22/21) 28 (11/24/21) 26 (10/20/21) 26 (09/22/21) 25 OH VITAMIN D ng/mL 56.0 (09/22/21) 38.3 (03/24/21) Albumin is below goal. Encourage high-biological value protein intake. Potassium is above goal. Encourage low potassium diet. Bicarbonate is at goal. Continue same bicarbonate in dialysate. 01/26/22: is now on renal diet at [facility] (they were giving him ice cream and milk with most meals) Bone and Mineral Metabolism Assessment CALCIUM mg/dL 10.7 (01/21/22) 10.2 (12/22/21) 9.4 (11/24/21) 9.5 (10/20/21) 9.2 (09/22/21) CALCIUM (MG/DL) CORRECTED FOR ALBUMIN IN SER/PLAS mg/dL 10.4 (12/22/21) 9.6 (11/24/21) 9.7 (10/20/21) 9.4 (09/22/21) 9.0 (08/18/21) PHOSPHATE (MG/DL) IN SER/PLAS mg/dL 5.5 (12/22/21) 4.2 (11/24/21) 2.9 (10/20/21) 3.9 (09/22/21) 4.4 (08/18/21) CALCIUM PHOSPHORUS PRODUCT, COR 57 (12/22/21) 40 (11/24/21) 28 (10/20/21) 37 (09/22/21) 40 (08/18/21) IPTH pg/mL 451 (12/22/21) 369 (11/24/21) 203 (10/27/21) 722 (09/22/21) 851 (09/13/21) Corrected Calcium is above goal. Phosphorous is at goal. Ca X P product is above goal. Intact PTH is at goal. Epoxy Coatings Installer will adjust binders and vitamin D [...] MD [ Signed And locked electronically On 01/26/2022 at 02:31:17 PM ] Transcribed: Herman Figueredo ( 01/26/2022 ) documented in this encounter Plan of Treatment Not on filedocumented as of this encounter Visit Diagnoses Not on filedocumented in this encounter
--- OUTSIDE RECORDS SUMMARY | 2022-02-24 13:23 | XMS_ITS | Encounter Summary ---
:1945 Author Organization [facility] Address [address] [place] [address] Care Team Providers Name Role Phone Unavailable Primary Care Provider Unavailable Encounter Details Date Type Department Care Team Description 12/08/2021 Orders Only [facility] O f Ernie Guzmán MD [phone] [place] [address] [place], [place] [phone] (Wo rk) Social History Tobacco Use [...] 12/09/2021 Unless otherwise specified, test(s) performed at: [facility], [address] [place] [address], [place] [address] MARRIAGE COUNSELOR: Alhaji Noguera M.D., Ph.D For any questions, please call customer service at FREQUENCY:OTHER Resulting Agency Comment Specimen source: Blood Ernie Pompa MD LAB BLOOD ORDERABLES Performing Organization Address City/State/ZIP Code Phon e Number [facility] documented in this encounter Visit Diagnoses Not on filedocumented in this encounter
--- OUTSIDE RECORDS SUMMARY | 2022-02-24 13:23 | XMS_ITS | Encounter Summary ---
:1945 Author Organization [facility] Address [address] [place] [address] Care Team Providers Name Role Phone Unavailable Primary Care Provider Unavailable Encounter Details Date Type Department Care Team Description 11/24/2021 Orders Only [facility] f Ernie Guzmán MD [phone] [place] [address] [place], [place] [phone] (Wo rk) Social History Tobacco Use [...] BLOOD ORDERABLES Performing Organization Address [facility] Phon e Number [facility] POST CHEMISTRY (11/24/2021) athologist Signature BUN Post 13 6 - 19 [facility] Dialysis mg/dL [facility] Specimen (Source) Anatomical Collection Method Collection Time Re ceived Time Location / / Volume Laterality 11/24/2021 11/26/2021 7:00 AM CDT Narrative [facility] - 11/26/2021 Unless otherwise specified, test(s) performed at: [facility], [address] [place] [address], [place] [address] TAIL BOARD WORKER: Alhaji Noguera M.D., Ph.D For any questions, please call customer service at FREQUENCY:MONTHLY Resulting Agency Comment Specimen source: Plasma Ernie Pompa MD LAB BLOOD ORDERABLES Performing Organization Address City/[facility]/ZIP Code Phon e Number [facility] (ABNORMAL) Spectrae Chemistry (11/24/2021) [facility] Method Time Signature BUN 48 (H) [...] 11/26/2021 Unless otherwise specified, test(s) performed at: [facility], [address] [place] [address], [place] [address] TAIL BOARD WORKER: Alhaji Noguera M.D., Ph.D For any [...] 11/26/2021 Unless otherwise specified, test(s) performed at: [facility], [address] [place] [address], [place] [address] TAIL BOARD WORKER: Alhaji Noguera M.D., Ph.D For any questions, please call customer service at FREQUENCY:MONTHLY Resulting Agency Comment Specimen source: Blood Ernie Pompa MD LAB BLOOD ORDERABLES Performing Organization Address City/[facility] Code Phon e [...] 11/26/2021 Unless otherwise specified, test(s) performed at: [facility], [address] [place] [address] [place] [address] TAIL BOARD WORKER: Alhaji Noguera M.D., Ph.D For any questions, please call customer service at FREQUENCY:MONTHLY Resulting Agency Comment Specimen source: Plasma Ernie Pompa MD LAB BLOOD ORDERABLES Performing Organization Address City/State/ZIP Code Phon e Number [facility] documented in this encounter Visit Diagnoses Not on filedocumented in this encounter
--- OUTSIDE RECORDS SUMMARY | 2022-02-24 13:23 | XMS_ITS | Encounter Summary ---
:1945 Author Organization [facility] Address [address] [place] [address] Care Team Providers Name Role Phone Unavailable Primary Care Provider Unavailable Encounter Details Date Type Department Care Team Description 11/03/2021 Orders Only [facility] O f Ernie Guzmán MD [phone] [place] [address] [place], [place] [phone] (Wo rk) Social History Tobacco Use [...] 11/04/2021 Unless otherwise specified, test(s) performed at: [facility], [address] [place] [address], [place] [address] CASH GRAIN FARMER: Alhaji Noguera M.D., Ph.D For any questions, please call customer service at FREQUENCY:OTHER Resulting Agency Comment Specimen source: Blood Ernie Pompa MD LAB BLOOD ORDERABLES Performing Organization Address City/State/ZIP Code Phon e Number [facility] documented in this encounter Visit Diagnoses Not on filedocumented in this encounter
--- OUTSIDE RECORDS SUMMARY | 2022-02-24 13:23 | XMS_ITS | Encounter Summary ---
:1945 Author Organization [facility] Address [address] [place] [address] Care Team Providers Name Role Phone Unavailable Primary Care Provider Unavailable Encounter Details Date Type Department Care Team Description 12/01/2021 Treatment [facility] f Ernie Guzmán MD [address] [place] [address] [place], [place] [phone] (Wo rk) Social History Tobacco Use Types Packs/Day Years Used Date Smoking Tobacco: Unknown Comments: Smoking History Info:Patient n ot screened Sex Assigned at Date Recorded Not on file documented as of this encounter Miscellaneous Notes Dialysis Note - Ernie Pompa MD - 12/01/2021 10:28 AM CDT Date: Dec 01, 2021 Patient Name: Shaun Ocampo : 1945 Chart #: [id number] Sex: M This patient was personally seen [...] AM ) BP (sit): n/a AP(-) / CRYSTAL MACHINING COORDINATOR: 225/160 Pulse: n/a Chairside data as of [...] 05/28/2021 04/23/2021 Access Flow [id number] ASSEMBLER: Ernie Pompa MD LOCATION: [place] [phone] SCHEDULE: -- 2nd Shift EDW: kg. DIALYZER: [...] after extra UF run last week at [facility]. BP adequate, challengingEDW today. His breathing is improved. Also went to wound care clinic at [facility] and they dressedwounds and he has follow-up and instructions for dressings and cares. He has no new symptoms and otherwise feels well. 10/13: Had GI bleeding on Monday, went to ER after dialysis, admitted at [facility], had 3u blood, EGDwithout obvious [...] and do periodic extra UF treatments at [facility] rather than risk more hypotension post-tx with use of midodrine and additional UF during treatments. He has fistulagram last week, went well and access working well since. 08/11: Continues to have problems with fluid gains. we have spent considerable time discussing this, he is trying to work on this but can't seem to avoid large gains. Will go to [place] for UF tomorrow, needs extra treatments every 2 weeks it looks like to maintain EDW. He does get SOB when >5K over dry weight in particular. 07/21/21: Continues to struggle with fluid gains, extra UF run scheduled tomorrow at [place]. He does feel more SOB when fluid overloaded. No new symptoms otherwise, he is enjoying the nicer weather which allows him to do more activity and not sit at home and drink fluids which he thinks will help with IDWG's. 07/14/21: Continues to have high gains, unfortunately [facility] without staff to open tomorrow for extra [...] improving. Fluid gains continue to be high, [facility] not open on this week, says he will do his best withlimiting salt/fluid. HE does feel SOB with exertion with extra fluid on, no orthopnea. 05/26/21: Has SOB when >5 Kg over dry weight, extra run last week at [place] helped. Trying his best with fluid restriction. [...] extra run and we discussed going to [place] tomorrow for UF only run and he [...] again today, may need extra run at [place] if can't get down over next week. 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 06/10: Doing well overall, no new complaints, [...] Went to Urgent care -> ER in [place] yesterday,CT with R hydro but no obstructive [...] prescription. Vascular Access Assessment Type of access: [id number] Surgeon Annita GARDNER 08/2021: fistulagram at [facility] [...] at goal. Intact PTH is at goal. Official Court Interpreter will adjust binders and vitamin D per [...]
--- OUTSIDE RECORDS SUMMARY | 2022-02-24 13:23 | XMS_ITS | Clinical Summary ---
:1945 Author Organization [facility] Address [address] [facility] [address] [place] [address] Phone Care Team Providers Name Role Phone Unavailable Primary Care Provider Unavailable Encounters Date Type Specialty Care Team Description 02/18/2022 Treatment Herman Figueredo MD 02/16/2022 Orders Only Nephrology Herman Figueredo MD 02/09/2022 Orders Only Nephrology Herman Figueredo MD 02/07/2022 Treatment Herman Figueredo MD 02/02/2022 Orders Only NephHerman Pastor MD 01/26/2022 Orders Only Nephrology Herman Figueredo MD 01/26/2022 Treatment Herman Figueredo MD 01/21/2022 Orders Only Nephrology Herman Figueredo MD 01/17/2022 Treatment Herman Figueredo MD 01/17/2022 Telephone Nephrology Sharon Juárez RN ESRD Pos t-Discharge 12/22/2021 Orders Only Nephrology Ernie Pompa MD 12/15/2021 Orders Only NephErnie Mccoy MD 12/08/2021 Orders Only NephErnie Mccoy MD 12/08/2021 Treatment Ernie Pompa MD 12/01/2021 Orders Only Nephrology Ernie Pompa MD 12/01/2021 Treatment Ernie Pompa MD from Last 3 Months Social History Tobacco Use Types Packs/Day Years Used Date Smoking Tobacco: Unknown Comments: Smoking History Info:Patient n ot screened Sex Assigned at Date Recorded Not on file Plan of Treatment Health Maintenance Due Date Last Done Comments Hepatitis B Vaccine (1 of 5 - Risk 1966 Dialysis 4-dose series) Colorectal Cancer Screenin08/06/1995 Annual FOBT Colorectal [...] Date/Time Associated Diagnosis Comme nts CHEMISTRY Routine 02/16/2022 Results for thi s procedure are i n the results section . HEMATOLOGY Routine 02/16/2022 Results for thi s procedure are i n the results section . HEMATOLOGY Routine 02/09/2022 Results for thi s procedure are i n the results section . SPECTRA [facility] LAB RESULTS Routine 02/02/2022 Resul ts for this procedure are i n the results section . HD KINETICS Routine 02/02/2022 Results for thi s procedure are i n the results section . CHEMISTRY Routine 02/02/2022 Results for thi s procedure are i n the results section . POST CHEMISTRY Routine 02/02/2022 Results for t his procedure are i n the results section . HEMATOLOGY Routine 02/02/2022 Results for thi s procedure are i n the results section . IMMUNO CHEMISTRY Routine 02/02/2022 Results for this procedure are i n the results section . CHEMISTRY Routine 02/02/2022 Results for thi s procedure are i n the results section . HEMATOLOGY Routine 01/26/2022 Results for thi s procedure are i n the results section . CHEMISTRY Routine 01/26/2022 Results for thi s procedure are i n the results section . CHEMISTRY Routine 01/21/2022 Results for thi s procedure are i n the results section . HEMATOLOGY Routine 01/21/2022 Results for thi s procedure are i n the results section . IMMUNO CHEMISTRY Routine 12/22/2021 Results for this [...] from Last 3 Months Results (ABNORMAL) HEMATOLOGY (02/16/2022)Only the most recent of9 resultswithin the time period is included. Analysis Performed At Patho logist Time Signature Hemoglobin 8.6 (L) 14.0 - APS SPECTRA 18.0 g/dL [facility] Hemoglobin x 3 25.8 (L) 42.0 - APS [facility]PECTRA 54.0 % [facility] Specimen (Source) Anatomical Collection Method Collection Time Re ceived Time Location / / Volume Laterality 02/16/2022 02/18/2022 3:56 AM ACUTE COORDINATOR Narrative APS SPECTRA [facility] - 02/18/2022 Unless otherwise specified, test(s) performed at: [facility], [address] [place] [address], [place] [address] EPIC TRAINER: Alhaji Noguera M.D., Ph.D For any questions, please call customer service at FREQUENCY:OTHER Resulting Agency Comment Specimen source: Blood Herman Figueredo MD LAB BLOOD ORDERABLES Performing Organization Address City/[facility] Phon e Number APS SPECTRA [facility]rae Chemistry (02/16/2022)Only the most recent of7 resultswithin the time period is included. P athologist Signature Calcium 10.2 8.7 - 10.4 APS SPECTRA mg/dL [facility] Comment: Please note change in reference range. Custom Exception Specimen (Source) Anatomical Collection Method Collection Time Re ceived Time Location / / Volume Laterality 02/16/2022 02/18/2022 6:06 AM ACUTE COORDINATOR Narrative APS SPECTRA [facility] - 02/18/2022 Unless otherwise specified, test(s) performed at: [facility], [address] [place] [address], [place] [address] EPIC TRAINER: Alhaji Noguera M.D., Ph.D For any questions, please call customer service at FREQUENCY:OTHER Resulting Agency Comment Specimen source: Serum Herman Figueredo MD LAB BLOOD ORDERABLES Performing Organization Address City/[facility] Phon e Number APS SPECTRA [facility] HD KINETICS (02/02/2022) P athologist Signature % Urea 76 65 - 80 % APS SPECTRA Reduction [facility] Specimen (Source) Anatomical Collection Method Collection Time Re ceived Time Location / / Volume Laterality 02/02/2022 02/03/2022 6:15 AM ACUTE COORDINATOR Narrative APS SPECTRA [facility] - 02/03/2022 Unless otherwise specified, test(s) performed at: [facility], [address] [place] [address], [place] [address] EPIC TRAINER: Alhaji Noguera M.D., Ph.D For any questions, please call customer service at FREQUENCY:MONTHLY Resulting Agency Comment Specimen source: Plasma Herman Figueredo MD LAB BLOOD ORDERABLES Performing Organization Address [facility] Phon e Number APS SPECTRA [facility] POST CHEMISTRY (02/02/2022) athologist Signature BUN Post 12 6 - 19 APS SPECTRA Dialysis mg/dL [facility] Specimen (Source) Anatomical Collection Method Collection Time Re ceived Time Location / / Volume Laterality 02/02/2022 02/03/2022 6:15 AM ACUTE COORDINATOR Narrative APS SPECTRA [facility] - 02/03/2022 Unless otherwise specified, test(s) performed at: [facility], [address] [place] [address], [place] [address] EPIC TRAINER: Alhaji Noguera M.D., Ph.D For any questions, please call customer service at FREQUENCY:MONTHLY Resulting Agency Comment Specimen source: Plasma Herman Figueredo MD LAB BLOOD ORDERABLES Performing Organization Address [facility] Phon e Number APS SPECTRA [facility] IMMUNO CHEMISTRY (02/02/2022)Only the most recent of2 resultswithin the time period is included. [facility] gist Method Time Signature Hep B Surface Negative Negative APS SPECTRA Ag [facility] Hepatitis C Nonreactive Nonreactive [facility] Antibody [facility] Comment: No HCV antibody detected. The above test result was obtained using [employer] IM chemiluminescent method. Results obtained with different assay methods or kits cannot be used interchangeably. S/CO Ratio 0.10 0.00 - 0.79 APS SPECTRA [facility] Comment: s/co ratio ?Interpretation ?Supplemental testing <0.80 ? Nonreactive ? No further testing required. 0.80-0.99 ? Equivocal ? HCV RNA Quantitative Real-Time PCR is recommended. 1.00->11.00 ?? Reactive ?HCV RNA Quantitative Real-Time PCR is recommended to distinguish active from resolved cases. Specimen (Source) Anatomical Collection Method Collection Time Re ceived Time Location / / Volume Laterality 02/02/2022 02/03/2022 4:18 AM ACUTE COORDINATOR Resulting Agency Comment Specimen source: Plasma Herman Figueredo MD LAB BLOOD ORDERABLES Performing Organization Address City/State/ZIP Code Phon e Number APS SPECTRA [facility] Spectra [facility] Lab Results (02/02/2022) P athologist Signature nPCR_HD 1.00 [facility] spKt/V Gotch 1.79 [facility] eKdrt/V 1.56 [facility] PCR 71.22 [facility] eNPCR 0.94 [facility] eKt/V Gotch 1.56 [facility] spKt/V 1.74 [facility] ([place]augirdas II) eKt/V 1.52 [facility] ([place]) Specimen (Source) Anatomical Location Collection Method / Collectio n Time Received Time / Laterality Volume 02/02/2022 02/02/2022 [facility] Ordering Provider LAB BLOOD ORDERABLES Performing Organization Address City/State/ZIP [facility] Phon e Number [facility] from Last 3 Months Insurance Payer Benefit Plan Subscriber ID Effective Dates Phone Address Type / Group [place] [id number] 2018-Presen [phone] [address] [address] MEDICARE ADV ([id number]) t [address] [place] [address]
--- OUTSIDE RECORDS SUMMARY | 2022-02-24 13:23 | XMS_ITS | Encounter Summary ---
:1945 Author Organization [facility] Address [address] [place] [address] Care Team Providers Name Role Phone Unavailable Primary Care Provider Unavailable Encounter Details Date Type Department Care Team Description 02/16/2022 Orders Only [facility] Herman Valdez MD [address] [place] [address] [address] [place], [place] [address] (Wo rk) Social History Tobacco Use Types Packs/Day Years Used Date Smoking Tobacco: Unknown Comments: Smoking History Info:Patient n ot screened Sex Assigned at Date Recorded Not on file documented as of this encounter Plan of Treatment Not on filedocumented as of this encounter Procedures Procedure Name Priority Date/Time Associated Diagnosis Comme nts HEMATOLOGY Routine 02/16/2022 Results for thi s procedure are in the resu lts section. CHEMISTRY Routine 02/16/2022 Results for thi s procedure are in the resu lts section. documented in this encounter Results [facility] Chemistry (02/16/2022) P athologist Signature Calcium 10.2 8.7 - 10.4 APS [facility]PECTRA mg/dL [facility] Comment: Please note change in reference range. Custom Exception Specimen (Source) Anatomical Collection Method Collection Time Re ceived Time Location / / Volume Laterality 02/16/2022 02/18/2022 6:06 AM VICE PRESIDENT OF INSTRUCTION Narrative APS SPECTRA [facility] - 02/18/2022 Unless otherwise specified, test(s) performed at: [facility], [address] [place] [address], [place] [address] DR[address] THRU ORDER TAKER: Alhaji Noguera M.D., Ph.D For any questions, please call customer service at FREQUENCY:OTHER Resulting Agency Comment Specimen source: Serum Herman Figueredo MD LAB BLOOD ORDERABLES Performing Organization Address City/State/ZIP Code Phon e Number APS SPECTRA [facility] (ABNORMAL) HEMATOLOGY (02/16/2022) Analysis Performed At Patho logist Time Signature Hemoglobin 8.6 (L) 14.0 - [facility]PS [facility] 18.0 g/dL [facility] Hemoglobin x 3 25.8 (L) 42.0 - APS [facility]RA 54.0 % [facility] Specimen (Source) Anatomical Collection Method Collection Time Re ceived Time Location / / Volume Laterality 02/16/2022 02/18/2022 3:56 AM VICE PRESIDENT OF INSTRUCTION Narrative APS SPECTRA [facility] - 02/18/2022 Unless otherwise specified, test(s) performed at: [facility], [address] [place], [place] [address]francisca [place] [address] DRIVE THRU ORDER TAKER: Alhaji Noguera M.D., Ph.D For any questions, please call customer service at FREQUENCY:OTHER Resulting Agency Comment Specimen source: Blood Herman Figueredo MD LAB BLOOD ORDERABLES Performing Organization Address City/State/[facility] Code Phon e Number APS SPECTRA [facility] documented in this encounter Visit Diagnoses Not on filedocumented in this encounter
--- OUTSIDE RECORDS SUMMARY | 2022-02-24 13:23 | XMS_ITS | Encounter Summary ---
:1945 Author Organization [facility] Address [address] [place] [address] Care Team Providers Name Role Phone Unavailable Primary Care Provider Unavailable Encounter Details Date Type Department Care Team Description 01/17/2022 Treatment [facility] Herman Valdez MD [address] [place] [address] [place], [place] [address] [place], [place] [address] (Wo rk) Social History Tobacco Use Types Packs/Day Years Used Date Smoking Tobacco: Unknown Comments: Smoking History Info:Patient n ot screened Sex Assigned at Date Recorded Not on file documented as of this encounter Miscellaneous Notes Dialysis Note - Herman Figueredo MD - 01/17/2022 5:04 PM CDT Date: Jan 17, 2022 Patient Name: Shaun Ocampo : 1945 Chart #: [id number] Sex: M Patient Type: ESRD Modality: Hemodialysis Sport Internship: Herman Figueredo MD Location: [place] [address] Schedule: -W- 3rd Shift Initial Access Date Regular Chronic Dialysis Began: 05/01/2019Initial Modality: Hemodialysis Initial Access used on first patient dialysis: AVF Current Access Access used for current outpatient dialysis: AVF Herman Figueredo MD [ Signed And locked electronically On 01/17/2022 at 04:04:13 PM ] Transcribed: Herman Figueredo MD ( 01/17/2022 ) External Note - Herman Figueredo MD - 01/17/2022 4:35 PM CDT Date: Jan 17, 2022 Patient Name: Shaun Ocampo : 1945 Chart #: [id number] Sex: M Patient has transitioned out of the following type of facility within the past 30 days: Hospital. Discharging Facility: [facility] Patient caregiver is present? No. If yes, relationship of caregiver to the patient: Date of admission:12/27/2021 Reason for admission: SOB, fluid overload. Aortic stensosis Date of discharge:01/14/2022 Discharge Diagnosis: same, s/p TAVR and PCI Review of relevant procedures performed during admission (surgeries, cardiac, transfusions, etc): HD, ECHO, cor angio with PCI, redo TAVR Medication List Medication Sig Start Date albuterol [...] Reaction Reaction Severity Onset Date lisinopril Cough Discharge med list was reviewed and reconciled with the pre-admit med list. New in-center meds were considered (antibiotics, ONS, etc): No in-center meds initiated. Dialysis related therapy interruptions were considered (Micera,Venofer,ONS,etc): Therapy interruptions noted and addressed. Target Weight: The patient's post discharge target weight was decreased from their pre-admit target weight. Physical Exam: Lungs: Diminished. Heart: RRR. Edema: 1 plus. Did the patient have tests ordered during admission that were not completed? Yes the patient has outstanding tests. If yes, please list: Was patient education specific to discharge diagnosis provided? N/A. Did the patient's access plan change as a result of this admission? No change in access plan. Did the patient's advanced care plan change as a result of this admission? No changes in advanced care plan. Did the patient have any follow up appointments scheduled post discharge? Yes the patient has followup appts. If yes, what is the status of those appts? No concerns with adherence with follow up appts. Will HD here at [facility] while in [facility] and until can get back home and resume at [facility] Herman Figueredo MD [ Signed And locked electronically On 01/17/2022 at 04:38:16 PM ] Transcribed: Herman Figueredo ( 01/17/2022 ) Dialysis Note - Herman Figueredo MD - 01/17/2022 4:28 PM CDT Date: Jan 17, 2022 Patient Name: Shaun Ocampo : 1945 Chart #: [id number] Sex: M This patient was personally seen for a complete visit as part of routine monthly dialysis care. A review of the dialysis treatment, blood pressure, estimated dry weight and recent lab values was made. These were discussed with the patient and staff as necessary. REGISTERED CLIENT ASSOCIATE: Herman Figueredo MD LOCATION: [facility] [phone] SCHEDULE: M-W-F 3rd Shift EDW: kg. DIALYZER: HD DURATION: NEEDLE SIZE: ANTICOAG: BATH: QB: ml/min QD: ml/min Subjective Tolerating dialysis well. 01/17/22: My first time meeting him. first time at [facility] today. followed by Dr. Pompa at . At [facility] 12/27-01/14/22 after prolonged hospitalization for CAP + severe Pulm HTN with high PCWP, s/predo TAVR/PCI, etc. I reviewed the [facility] d/c summary. new EDW never called here nor were there orders for ,mid-run Midodrine. , looks like his standing wt at [facility] 01/14 pre- Hd was 93.6 and he [...] after extra UF run last week at [facility]. BP adequate, challengingEDW today. His breathing is improved. Also went to wound care clinic at [facility] [place] and they dressedwounds and he has follow-up and instructions for dressings and cares. He has no new symptoms and otherwise feels well. 10/13: Had GI bleeding on Monday, went to ER after dialysis, admitted at [facility], had 3u blood, EGDwithout obvious source, ASA [...] Went to Urgent care -> ER in [place] yesterday,CT with R hydro but no obstructive [...] Medications reviewed with changes as indicated below. 01/17/22: see [facility] d/c summary Treatment and Adequacy Assessment BUN mg/dL 51 (12/22/21) 48 (11/24/21) 38 (10/20/21) 41 (09/22/21) 55 (08/30/21) UREA NITROGEN (MG/DL) IN SER/PLAS - POST [...] Continue current prescription. 01/17/22: labs were at [facility] Vascular Access Assessment Type of access: [place]20/2019 Surgeon - Lary ANTresa 08/2021: fistulagram at [facility] with angioplasty of stenosis completed Anemia Assessment HEMOGLOBIN (G/DL) IN BLOOD g/dL 10.9 (12/22/21) 11.0 (12/15/21) 10.8 (12/08/21) 10.8 (12/01/21) 10.3 (11/24/21) PLATELETS 1000/mcL 130 (12/22/21) 179 (11/24/21) 184 (10/20/21) 250 (09/22/21) 101 (08/18/21) IRON SATURATION % 32 (08/18/21) 36 (07/21/21) 31 (06/23/21) 38 (05/26/21) 35 (05/19/21) FERRITIN ng/mL 630 (12/22/21) 357 (09/22/21) 640 (06/23/21) 640 (05/21/21) 857 (03/24/21) Hemoglobin is at goal. Iron Saturation is at goal. Ferritin is at goal. Will adjust NATALEE and intravenous iron per protocol. Nutritional and Metabolic Assessment ALBUMIN (G/DL) g/dL 3.8 (12/22/21) 3.7 (11/24/21) 3.8 (10/20/21) 3.7 (09/22/21) 3.6 (08/18/21) Sodium mEq/L 133 (12/22/21) 137 (11/24/21) 135 (10/20/21) 133 (09/22/21) 135 (08/18/21) POTASSIUM (MMOL/L) IN SER/PLAS mEq/L 5.8 (12/22/21) 5.6 (11/24/21) 5.0 (10/20/21) 5.7 (09/29/21) 6.3 (09/22/21) BICARBONATE (CO2) mEq/L 24 (12/22/21) 28 (11/24/21) 26 (10/20/21) 26 (09/22/21) 23 (08/18/21) 25 OH VITAMIN D ng/mL 56.0 (09/22/21) 38.3 (03/24/21) Albumin is below goal. Encourage high-biological value protein intake. Potassium is above goal. Encourage low potassium diet. Bicarbonate is at goal. Continue same bicarbonate in dialysate. Bone and Mineral Metabolism Assessment CALCIUM mg/dL 10.2 (12/22/21) 9.4 (11/24/21) 9.5 (10/20/21) 9.2 (09/22/21) 8.9 (09/13/21) CALCIUM (MG/DL) CORRECTED FOR ALBUMIN IN SER/PLAS [...] above goal. Intact PTH is at goal. Subscription Clerk will adjust binders and vitamin D per protocol and continue to provide dietary education. HE has severe nausea and vomiting with Sensipar, can not use anymore Continue [facility] Cardiovascular Assessment Blood pressures reviewed and are acceptable. Intradialytic weight gains are appropriate. Estimated dry weight is too high, will decrease. Continue same cardiovascular medications. 01/17/22: last standing wt 93.6 pre-HD at [...] MD [ Signed And locked electronically On 01/17/2022 at 04:35:34 PM ] Transcribed: Herman Figueredo ( 01/17/2022 ) documented in this encounter Plan of Treatment Not on filedocumented as of this encounter Visit Diagnoses Not on filedocumented in this encounter
--- OUTSIDE RECORDS SUMMARY | 2022-02-24 13:23 | XMS_ITS | Encounter Summary ---
:1945 Author Organization [facility] Address [address] [place] [address] Care Team Providers Name Role Phone Unavailable Primary Care Provider Unavailable Encounter Details Date Type Department Care Team Description 10/20/2021 Orders Only [facility] f Ernie Guzmán MD [address] [place] [address] [place], [place] [phone] (Wo rk) Social History Tobacco Use [...] ORDERABLES Performing Organization Address City/[facility]/ZIP Code Phon e Number APS SPECTRA [facility] POST CHEMISTRY (10/20/2021) athologist Signature BUN Post 11 6 - 19 APS SPECTRA Dialysis mg/dL [facility] Specimen (Source) Anatomical Collection Method Collection Time Re ceived Time Location / / Volume Laterality 10/20/2021 10/21/2021 3:38 AM CDT Narrative APS SPECTRA [facility] - 10/21/2021 Unless otherwise specified, test(s) performed at: [facility], [address] [place] [address], [place] [address] NAILING MACHINE OPERATOR AUTOMATIC: Alhaji Noguera M.D., Ph.D For any questions, please call customer service at FREQUENCY:MONTHLY Resulting Agency Comment Specimen source: Plasma Ernie Pompa MD LAB BLOOD ORDERABLES Performing Organization Address City/State/ZIP Code Phon e Number APS SPECTRA [facility] (ABNORMAL) Spectrae Chemistry (10/20/2021) [facility] gist Method Time Signature BUN 38 [...] 10/21/2021 Unless otherwise specified, test(s) performed at: [facility], [address] [place] [address], [place] [address] NAILING MACHINE OPERATOR AUTOMATIC: Alhaji Noguera M.D., Ph.D For any questions, [...] 10/21/2021 Unless otherwise specified, test(s) performed at: [facility], [address] [place] [address], [place] [address] NAILING MACHINE OPERATOR AUTOMATIC: Alhaji Noguera M.D., Ph.D For any questions, please call customer service at FREQUENCY:MONTHLY Resulting Agency Comment Specimen source: Blood Ernie Pompa MD LAB BLOOD ORDERABLES Performing Organization Address [facility] Phon e Number APS SPECTRA [facility] IMMUNO CHEMISTRY (10/20/2021) P athologist Signature Hep B Surface Negative Negative APS SPECTRA Ag [facility] Specimen (Source) Anatomical Collection Method Collection Time Re ceived Time Location / / Volume Laterality 10/20/2021 10/21/2021 3:50 AM CDT Narrative APS SPECTRA [facility] - 10/21/2021 Unless otherwise specified, test(s) performed at: [facility], [address] [place] [address], [place] [address] NAILING MACHINE OPERATOR AUTOMATIC: Alhaji Noguera M.D., Ph.D For any questions, please call customer service at FREQUENCY:MONTHLY Resulting Agency Comment Specimen source: Plasma Ernie Pompa MD LAB BLOOD ORDERABLES Performing Organization Address [facility]/ZIP Code Phon e Number APS SPECTRA [facility] documented in this encounter Visit Diagnoses Not on filedocumented in this encounter
--- OUTSIDE RECORDS SUMMARY | 2022-02-24 13:23 | XMS_ITS | Encounter Summary ---
:1945 Author Organization [facility] Address [address] [place] [address] Care Team Providers Name Role Phone Unavailable Primary Care Provider Unavailable Encounter Details Date Type Department Care Team Description 10/27/2021 Orders Only [facility] O f Ernie Guzmán MD [address] [place] [address] [place], [place] [phone] (Wo rk) Social History Tobacco Use [...] 10/28/2021 Unless otherwise specified, test(s) performed at: [facility], [address] [place] [address], [place] [address] CREATIVE SERVICES DIRECTOR: Alhaji Noguera M.D., Ph.D For any [...] 10/28/2021 Unless otherwise specified, test(s) performed at: [facility], [address] [place] [address] [place] [address] CREATIVE SERVICES DIRECTOR: Alhaji Noguera M.D., Ph.D For any questions, please call customer service at FREQUENCY:OTHER Resulting Agency Comment Specimen source: Blood Ernie Pompa MD LAB BLOOD ORDERABLES Performing Organization Address City/[facility] Phon e Number APS SPECTRA [facility] documented in this encounter Visit Diagnoses Not on filedocumented in this encounter
--- OUTSIDE RECORDS SUMMARY | 2022-02-24 13:23 | XMS_ITS | Encounter Summary ---
:1945 Author Organization [facility] Address [address] [place] [address] Care Team Providers Name Role Phone Unavailable Primary Care Provider Unavailable Encounter Details Date Type Department Care Team Description 02/02/2022 Orders Only [facility] O f Herman Valdez MD [address] [place] [address] [address] [place], [place] [address] (Wo rk) Social History Tobacco Use Types Packs/Day Years Used Date Smoking Tobacco: Unknown Comments: Smoking History Info:Patient n ot screened Sex Assigned at Date Recorded Not on file documented as of this encounter Plan of Treatment Not on filedocumented as of this encounter Procedures Procedure Name Priority Date/Time Associated Diagnosis Comme nts HD KINETICS Routine 02/02/2022 Results for thi [...] this encounter Results Spectra KAMERON Lab Results (02/02/2022) P athologist [...] Code Phon e Number KAMERON HD KINETICS (02/02/2022) P athologist Signature % Urea 76 65 - 80 % APS SPECTRA Reduction [facility] Specimen (Source) Anatomical Collection Method Collection Time Re ceived Time Location / / Volume Laterality 02/02/2022 02/03/2022 6:15 AM HOOP RIVETER Narrative APS SPECTRA [facility] - 02/03/2022 Unless otherwise specified, test(s) performed at: [facility] [address] [place] [address], [place] [address] SCIENTIFIC PUBLICATIONS EDITOR: Alhaji Noguera M.D., Ph.D For any questions, please call customer service at FREQUENCY:MONTHLY Resulting Agency Comment Specimen source: Plasma Herman Figueredo MD LAB BLOOD ORDERABLES Performing Organization Address City/State/ZIP Code Phon e Number APS SPECTRA [facility] (ABNORMAL) Spectrae Chemistry (02/02/2022) [facility] Method Time Signature BUN 51 (H) 6 - 19 APS SPECTRA mg/dL [facility] Creatinine 5.57 (H) 0.60 - APS SPECTRA 1.30 mg/dL [facility] BUN/Creatinine 9.2 (L) 10.0 - APS SPECTRA Ratio 20.0 [facility] Sodium 130 (L) 136 - 145 APS SPECTRA mEq/L [facility] Potassium 5.0 3.5 - 5.1 APS SPECTRA mEq/L [facility] Chloride 92 (L) 96 - 108 APS SPECTRA mEq/L [facility] Bicarbonate 29 20 - 31 APS SPECTRA (CO2) mEq/L [facility] Comment: Please note change in reference range. Calcium 9.9 8.7 - 10.4 mg/dL APS SPECTRA K [facility] Comment: Please note change in reference range. Corrected Calcium 10.3 8.7 - 10.4 mg/dL APS S PECTRA [facility] Comment: Corrected Calcium is not equivalent to m easured Ionized Calcium. Phosphorus 3.3 2.6 - 4.5 mg/dL APS SPECTRA K [facility] Calcium Phosphorus Product 33 0 - 54 APS SPECTRA [facility] Calcium Phosporus Product, Cor 34 0 - 54 APS SPECTRA [facility] Total Protein 7.0 6.0 - 8.5 g/dL APS SPECTRA [facility] Albumin 3.5 3.5 - 5.2 g/dL APS SPECTRA [facility] [place] Globulin, Total 3.5 2.0 - 4.0 g/dL APS SPECT RA [facility] A/G Ratio 1.0 1.0 - 2.0 APS SPECTRA [facility] Iron 41 (L) 45 - 160 mcg/dL APS SPECTRA [facility] UIBC 196 155 - 355 mcg/dL APS SPECTRA [facility] TIBC 237 185 - 515 mcg/dL APS SPECTRA [facility] Iron Saturation (TSat) 17 (L) 20 - 55 % APS SPE CTRA [facility] Specimen (Source) Anatomical Collection Method Collection Time Re ceived Time Location / / Volume Laterality 02/02/2022 02/03/2022 10:5 4 AM HOOP RIVETER Narrative APS SPECTRA [facility] - 02/03/2022 Unless otherwise specified, test(s) performed at: [facility] [address] [place], [place] [address] [place] [address] SCIENTIFIC PUBLICATIONS EDITOR: Alhaji Noguera M.D., Ph.D For any questions, please call customer service at FREQUENCY:MONTHLY Resulting Agency Comment Specimen source: Serum Herman Figueredo MD LAB BLOOD ORDERABLES Performing Organization Address City/State/ZIP Code Phon e Number APS SPECTRA [facility] POST CHEMISTRY (02/02/2022) P athologist Signature BUN Post 12 6 - 19 APS SPECTRA Dialysis mg/dL [facility] Specimen (Source) Anatomical Collection Method Collection Time Re ceived Time Location / / Volume Laterality 02/02/2022 02/03/2022 6:15 AM HOOP RIVETER Narrative APS SPECTRA [facility] - 02/03/2022 Unless otherwise specified, test(s) performed at: [facility] [employer] [email or web address] [place] [address] SCIENTIFIC PUBLICATIONS EDITOR: Alhaji Noguera M.D., Ph.D For any questions, please call customer service at FREQUENCY:MONTHLY Resulting Agency Comment Specimen source: Plasma Herman Figueredo MD LAB BLOOD ORDERABLES Performing Organization Address City/State/ZIP Code Phon e Number APS SPECTRA [facility] (ABNORMAL) HEMATOLOGY (02/02/2022) Analysis Performed At Patho logist Time Signature WBC 8.83 4.80 - APS SPECTRA 10.80 [facility] 1000/mcL RBC 2.33 (L) 4.70 - APS SPECTRA 6.10 [facility] mill/mcL Hematocrit 23.9 (L) 42.0 - APS SPECTRA 52.0 % [facility] MCV 103 (H) 80 - 100 APS SPECTRA fl [facility] MCH 31.8 (H) 27.0 - APS SPECTRA 31.0 pg [facility] MCHC 31.0 30.0 - APS SPECTRA 36.0 g/dL [facility] RDW 22.8 (H) 11.5 - APS SPECTRA 14.5 % [facility] Hemoglobin 7.4 (L) 14.0 - APS SPECTRA 18.0 g/dL [facility] Hemoglobin x 3 22.2 (L) 42.0 - APS SPECTRA 54.0 % [facility] Platelets 114 (L) 130 - 400 APS SPECTRA 1000/mcL [facility] Specimen (Source) Anatomical Collection Method Collection Time Re ceived Time Location / / Volume Laterality 02/02/2022 02/03/2022 4:22 AM HOOP RIVETER Narrative APS SPECTRA [facility] - 02/03/2022 Unless otherwise specified, test(s) performed at: [facility] [address] [place] [address], [place] [address] SCIENTIFIC PUBLICATIONS EDITOR: Alhaji Noguera M.D., Ph.D For any questions, please call customer service at FREQUENCY:MONTHLY Resulting Agency Comment Specimen source: Blood Herman Figueredo MD LAB BLOOD ORDERABLES Performing Organization Address City/State/[facility] Phon e Number APS SPECTRA [facility] IMMUNO CHEMISTRY (02/02/2022) Patholo gist Method Time Signature Hep B Surface [...] / Volume Laterality 02/02/2022 02/03/2022 4:18 AM HOOP RIVETER Resulting Agency Comment Specimen source: Plasma Herman Figueredo MD LAB BLOOD ORDERABLES Performing Organization Address City/State/[facility] Code Phon e Number APS SPECTRA [facility] (ABNORMAL) Spectrae Chemistry (02/02/2022) P athologist Signature PTH 264 (H) 16 - 80 APS SPECTRA pg/mL [facility] Specimen (Source) Anatomical Collection Method Collection Time Re ceived Time Location / / Volume Laterality 02/02/2022 02/03/2022 4:18 AM HOOP RIVETER Narrative APS SPECTRA [facility] - 02/03/2022 Unless otherwise specified, test(s) performed at: [facility] [address] [place] [address], [place] [address] SCIENTIFIC PUBLICATIONS EDITOR: Alhaji Noguera M.D., Ph.D For any questions, please call customer service at FREQUENCY:MONTHLY Resulting Agency Comment Specimen source: Plasma Herman Figueredo MD LAB BLOOD ORDERABLES Performing Organization Address City/State/ZIP Code Phon e Number APS SPECTRA [facility] documented in this encounter Visit Diagnoses Not on filedocumented in this encounter
--- OUTSIDE RECORDS SUMMARY | 2022-02-24 13:23 | XMS_ITS | Encounter Summary ---
:1945 Author Organization [facility] Address [address] [place] [address] Care Team Providers Name Role Phone Unavailable Primary Care Provider Unavailable Encounter Details Date Type Department Care Team Description 12/08/2021 Treatment [facility] O f Ernie Guzmán MD [address] [place] [address] [place], [place] [phone] (Wo rk) Social History Tobacco Use Types Packs/Day Years Used Date Smoking Tobacco: Unknown Comments: Smoking History Info:Patient n ot screened Sex Assigned at Date Recorded Not on file documented as of this encounter Miscellaneous Notes Dialysis Note - Ernie Pompa MD - 12/08/2021 10:43 AM CDT Date: Dec 08, 2021 Patient Name: Shaun Ocampo : 1945 Chart #: [id number] Sex: M This patient was personally seen [...] AM ) BP (sit): 103/46 AP(-) / WAFER BATTER MIXER: 192/153 Pulse: 72 Chairside data as of [...] 08/27/2021 05/28/2021 04/23/2021 Access Flow [id number] Treatment Medication Orders Medication Sig Start Date [...] mcg IVP Every 2 weeks 10/27/2021 10/26/2022 LOGISTICS SUPERVISOR: Ernie Pompa MD LOCATION: [phone] SCHEDULE: -- 2nd Shift ACCESS: EDW: kg. [...] after extra UF run last week at [facility]. BP adequate, challengingEDW today. His breathing is improved. Also went to wound care clinic at [facility] and they dressedwounds and he has follow-up and instructions for dressings and cares. He has no new symptoms and otherwise feels well. 10/13: Had GI bleeding on Monday, went to ER after dialysis, admitted at [facility], had 3u blood, EGDwithout obvious source, ASA [...] and do periodic extra UF treatments at [facility] rather than risk more hypotension post-tx with use of midodrine and additional UF during treatments. He has fistulagram last week, went well and access working well since. 08/11: Continues to have problems with fluid gains. we have spent considerable time discussing this, he is trying to work on this but can't seem to avoid large gains. Will go to [facility] for UF tomorrow, needs extra treatments every 2 weeks it looks like to maintain EDW. He does get SOB when >5K over dry weight in particular. 07/21/21: Continues to struggle with fluid gains, extra UF run scheduled tomorrow at [facility]. He does feel more SOB when fluid overloaded. No new symptoms otherwise, he is enjoying the nicer weather which allows him to do more activity and not sit at home and drink fluids which he thinks will help with IDWG's. 07/14/21: Continues to have high gains, unfortunately [facility] without staff to open tomorrow for extra [...] improving. Fluid gains continue to be high, [facility] not open on this week, says he will do his best withlimiting salt/fluid. HE does feel SOB with exertion with extra fluid on, no orthopnea. 05/26/21: Has SOB when >5 Kg over dry weight, extra run last week at [facility] helped. Trying his best with fluid restriction. [...] extra run and we discussed going to [facility] tomorrow for UF only run and he [...] again today, may need extra run at [facility] if can't get down over next week. 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 06/10: Doing well overall, no new complaints, [...] Went to Urgent care -> ER in [place] yesterday,CT with R hydro but no obstructive [...] He had infiltration last week, dialyzed at [facility] on Sat and went well, access [...] (09/22/21) Vascular Access Assessment: Type of access: [email or web address]/[email or web address] Surgeon - Lary ANW 08/2021: fistulagram at [facility] with angioplasty of stenosis completed Impression and [...]
--- OUTSIDE RECORDS SUMMARY | 2022-02-24 13:23 | XMS_ITS | Encounter Summary ---
:1945 Author Organization [facility] Address [address] [place] [address] Care Team Providers Name Role Phone Unavailable Primary Care Provider Unavailable Encounter Details Date Type Department Care Team Description 11/10/2021 Orders Only [facility] O f Ernie Guzmán MD [address] [place] [address] [place], [place] [phone] (Wo rk) Social History Tobacco Use [...] 11/11/2021 Unless otherwise specified, test(s) performed at: [facility], [address] [place] [address], [place] [address] HEALTH INFORMATION ADMINISTRATOR: Alhaji Noguera M.D., Ph.D For any questions, please call customer service at FREQUENCY:OTHER Resulting Agency Comment Specimen source: Blood Ernie Pompa MD LAB BLOOD ORDERABLES Performing Organization Address City/State/ZIP Code Phon e Number APS SPECTRA [facility] documented in this encounter Visit Diagnoses Not on filedocumented in this encounter
--- OUTSIDE RECORDS SUMMARY | 2022-02-24 13:23 | XMS_ITS | Encounter Summary ---
:1945 Author Organization [facility] Address [address] [place] [address] Care Team Providers Name Role Phone Unavailable Primary Care Provider Unavailable Encounter Details Date Type Department Care Team Description 01/21/2022 Orders Only [facility] O f Herman Valdez MD [address] [place] [address] [address] [place], [place] [address] (Wo rk) Social History Tobacco Use Types Packs/Day Years Used Date Smoking Tobacco: Unknown Comments: Smoking History Info:Patient n ot screened Sex Assigned at Date Recorded Not on file documented as of this encounter Plan of Treatment Not on filedocumented as of this encounter Procedures Procedure Name Priority Date/Time Associated Diagnosis Comme nts HEMATOLOGY Routine 01/21/2022 Results for thi s procedure are in the resu lts section. CHEMISTRY Routine 01/21/2022 Results for thi s procedure are in the resu lts section. documented in this encounter Results (ABNORMAL) Spectrae Chemistry (01/21/2022) Analysis Performed At Patho logist Time Signature BUN 79 (H) 6 - 19 APS SPECTRA mg/dL [facility] Creatinine 5.84 (H) 0.60 - APS SPECTRA 1.30 mg/dL [facility] BUN/Creatinine 13.5 10.0 - APS SPECTRA Ratio 20.0 [facility] Sodium 133 (L) 136 - 145 APS SPECTRA mEq/L [facility] Potassium 6.6 (H) 3.5 - 5.1 APS SPECTRA mEq/L [facility] Comment: Verified by repeat analysis. Chloride 94 (L) 96 - 108 mEq/L APS SPECTRA [facility] [place] Bicarbonate (CO2) 27 20 - 31 mEq/L APS SPEC TRA [facility] Comment: Please note change in reference range. Calcium 10.7 (H) 8.7 - 10.4 mg/dL APS SPECTRA K [facility] Comment: Please note change in reference range. Custom Exception Glucose 150 (H) 70 - 100 mg/dL APS SPECTRA [facility] [place] Specimen (Source) Anatomical Collection Method Collection Time Re ceived Time Location / / Volume Laterality 01/21/2022 01/22/2022 12:5 2 PM CDT Narrative APS SPECTRA [facility] - 01/22/2022 Unless otherwise specified, test(s) performed at: [facility], [facility] [address] CUTTING TABLE OPERATOR FIRST: Alhaji Noguera M.D., Ph.D For any questions, please call customer service at FREQUENCY:OTHER Resulting Agency Comment Specimen source: Serum Herman Figueredo MD LAB BLOOD ORDERABLES Performing Organization Address City/State/ZIP Code Phon e Number APS SPECTRA [facility] (ABNORMAL) HEMATOLOGY (01/21/2022) P athologist Signature WBC 6.76 4.80 - APS SPECTRA 10.80 [facility] 1000/mcL RBC 2.31 (L) 4.70 - 6.10 APS SPECTRA mill/mcL [facility] Hemoglobin 7.4 (L) 14.0 - 18.0 APS SPECTRA g/dL [facility] Comment: Questionable results; verified by repeat analysis. Result is significantly lower than previous result s. Hemoglobin x 3 22.2 (L) 42.0 - 54.0 % APS SPECTRA [facility] Hematocrit 22.6 (L) 42.0 - 52.0 % APS SPECTRA [facility] [place] Comment: Verified by repeat analysis. MCV 98 80 - 100 fl APS SPECTRA [facility] MCH 31.9 (H) 27.0 - 31.0 pg APS SPECTRA [facility] [place] MCHC 32.7 30.0 - 36.0 g/dL APS SPECTRA K [facility] RDW 17.7 (H) 11.5 - 14.5 % APS SPECTRA [facility] N Specimen (Source) Anatomical Collection Method Collection Time Re ceived Time Location / / Volume Laterality 01/21/2022 01/22/2022 10:2 8 AM CDT Narrative APS SPECTRA [facility] - 01/22/2022 Unless otherwise specified, test(s) performed at: [facility], [address] [place] [address] CUTTING TABLE OPERATOR FIRST: Alhaji Noguera M.D., Ph.D For any questions, please call customer service at FREQUENCY:OTHER Resulting Agency Comment Specimen source: Blood Herman Figueredo MD LAB BLOOD ORDERABLES Performing Organization Address City/State/ZIP Code Phon e Number APS SPECTRA [facility] documented in this encounter Visit Diagnoses Not on filedocumented in this encounter
--- OUTSIDE RECORDS SUMMARY | 2022-02-24 13:24 | XMS_ITS | Encounter Summary ---
:1945 Author Organization [facility] Address [address] [place] [address] Care Team Providers Name Role Phone Unavailable Primary Care Provider Unavailable Encounter Details Date Type Department Care Team Description 06/30/2021 Treatment [facility] O f Ernie Guzmán MD [address] [place] [address] [place], [place] [phone] (Wo rk) Social History Tobacco Use Types Packs/Day Years Used Date Smoking Tobacco: Unknown Comments: Smoking History Info:Patient n ot screened Sex Assigned at Date Recorded Not on file documented as of this encounter Miscellaneous Notes Dialysis Note - Ernie Pompa MD - 06/30/2021 11:03 AM CDT Date: Jun 30, 2021 Patient Name: Shaun Ocampo : 1945 Chart #: [id number] Sex: M This patient was personally seen [...] AM ) BP (sit): 100/42 AP(-) / TICKET CLERK: 167/131 Pulse: 78 Chairside data as of [...] 05/28/2021 04/23/2021 04/02/2021 Access Flow [id number] Treatment Medication Orders Medication Sig Start Date [...] mcg IVP Every 4 weeks 06/23/2021 06/22/2022 SMALL KICK PRESS OPERATOR: Ernie Pompa MD LOCATION: [phone] SCHEDULE: -- 2nd Shift EDW: kg. DIALYZER: [...] improving. Fluid gains continue to be high, [facility] not open on this week, says he will do his best withlimiting salt/fluid. HE does feel SOB with exertion with extra fluid on, no orthopnea. 05/26/21: Has SOB when >5 Kg over dry weight, extra run last week at [facility] helped. Trying his best with fluid restriction. [...] extra run and we discussed going to [facility] tomorrow for UF only run and he [...] again today, may need extra run at [facility] if can't get down over next week. 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 06/10: Doing well overall, no new [...] Went to Urgent care -> ER in [place] yesterday,CT with R hydro but no obstructive [...] prescription. Vascular Access Assessment Type of access: [email or web address]/2019 Surgeon Annita KUMARW Access working well Anemia [...] at goal. Intact PTH is above goal. Functional Tester Typewriters will adjust binders and vitamin D per [...] to prescription Extra UF run tomorrow at [facility] Continue work on lower IDWG's Ernie Pompa MD [ Signed And locked electronically On 06/30/2021 at 11:05:31 AM ] Transcribed: Ernie Pompa ( 06/30/2021 ) documented in this encounter Plan of Treatment Not on filedocumented as of this encounter Visit Diagnoses Not on filedocumented in this encounter
--- OUTSIDE RECORDS SUMMARY | 2022-02-24 13:24 | XMS_ITS | Encounter Summary ---
:1945 Author Organization [facility] Address [address] [place] [address] Care Team Providers Name Role Phone Unavailable Primary Care Provider Unavailable Encounter Details Date Type Department Care Team Description 06/30/2021 Orders Only [facility] O f Ernie Guzmán MD [address] [place] [address] [place], [place] [phone] (Wo rk) Social History Tobacco Use [...] 07/01/2021 Unless otherwise specified, test(s) performed at: [facility], [address] [place] [address] BACTERIOLOGY PROFESSOR: Alec Payan M.D. For any questions, please call customer service at FREQUENCY:OTHER Resulting Agency Comment Specimen source: Blood Ernie Pompa MD LAB BLOOD ORDERABLES Performing Organization Address City/State/ZIP Code Phon e Number APS SPECTRA [facility] documented in this encounter Visit Diagnoses Not on filedocumented in this encounter
--- OUTSIDE RECORDS SUMMARY | 2022-02-24 13:24 | XMS_ITS | Encounter Summary ---
:1945 Author Organization [facility] Address [address] [place] [address] Care Team Providers Name Role Phone Unavailable Primary Care Provider Unavailable Encounter Details Date Type Department Care Team Description 10/13/2021 Treatment [facility] O f Ernie Guzmán MD [address] [place] [address] [place], [place] [phone] (Wo rk) Social History Tobacco Use Types Packs/Day Years Used Date Smoking Tobacco: Unknown Comments: Smoking History Info:Patient n ot screened Sex Assigned at Date Recorded Not on file documented as of this encounter Miscellaneous Notes Dialysis Note - Ernie Pompa MD - 10/13/2021 12:07 PM CDT Date: Oct 13, 2021 Patient Name: Shaun Ocampo : 1945 Chart #: [id number] Sex: M This patient was personally seen for a basic visit as part of routine weekly dialysis care. A reviewof the dialysis treatment, blood pressure, estimated dry weight and recent lab values was made. These were discussed with the patient and staff as necessary. DATA MANAGEMENT SPECIALIST: Ernie Pompa MD LOCATION: [phone] SCHEDULE: M-W-F 2nd Shift ACCESS: EDW: kg. DIALYZER: HD DURATION: NEEDLE SIZE: ANTICOAG: BATH: QB: ml/min QD: ml/min Subjective Tolerating dialysis well. 10/13: Had GI bleeding on Monday, went to ER after dialysis, admitted at [facility], had 3u blood, EGDwithout obvious source, ASA [...] and do periodic extra UF treatments at [facility] rather than risk more hypotension post-tx with use of midodrine and additional UF during treatments. He has fistulagram last week, went well and access working well since. 08/11: Continues to have problems with fluid gains. we have spent considerable time discussing this, he is trying to work on this but can't seem to avoid large gains. Will go to [place] for UF tomorrow, needs extra treatments every 2 weeks it looks like to maintain EDW. He does get SOB when >5K over dry weight in particular. 07/21/21: Continues to struggle with fluid gains, extra UF run scheduled tomorrow at [facility]. He does feel more SOB when fluid overloaded. No new symptoms otherwise, he is enjoying the nicer weather which allows him to do more activity and not sit at home and drink fluids which he thinks will help with IDWG's. 07/14/21: Continues to have high gains, unfortunately [facility] without staff to open tomorrow for extra [...] improving. Fluid gains continue to be high, [facility] not open on this week, says he will do his best withlimiting salt/fluid. HE does feel SOB with exertion with extra fluid on, no orthopnea. 05/26/21: Has SOB when >5 Kg over dry weight, extra run last week at [facility] helped. Trying his best with fluid restriction. [...] extra run and we discussed going to [facility] tomorrow for UF only run and he [...] again today, may need extra run at [facility] if can't get down over next week. 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 06/10: Doing well overall, no new complaints, [...] feels quite well, was out on 4 houhg yesterday in the nice weather and has [...] (08/20/21) Vascular Access Assessment: Type of access: [id number]/2019 Surgeon - Lary GARDNER 08/2021: fistulagram at [facility] with angioplasty of stenosis completed Impression and [...] Name: Shaun Ocampo : 1945 Chart #: [id number] Sex: M Patient has transitioned out of the following type of facility within the past 30 days: Discharging Facility: [facility] Patient caregiver is present? If yes, [...]
--- OUTSIDE RECORDS SUMMARY | 2022-02-24 13:24 | XMS_ITS | Encounter Summary ---
:1945 Author Organization [facility] Address [address] [place] [address] Care Team Providers Name Role Phone Unavailable Primary Care Provider Unavailable Encounter Details Date Type Department Care Team Description 10/13/2021 Orders Only [facility] O f Ernie Guzmán MD [address] [place] [address] [place], [place] [phone] (Wo rk) Social History Tobacco Use [...] 10/14/2021 Unless otherwise specified, test(s) performed at: [facility], [address] [place] [address], [place] [address] CONSUMER ATTORNEY: Alhaji Noguera M.D., Ph.D For any questions, please call customer service at FREQUENCY:OTHER Resulting Agency Comment Specimen source: Blood Ernie Pompa MD LAB BLOOD ORDERABLES Performing Organization Address City/State/ZIP Code Phon e Number APS SPECTRA [facility] documented in this encounter Visit Diagnoses Not on filedocumented in this encounter
--- OUTSIDE RECORDS SUMMARY | 2022-02-24 13:24 | XMS_ITS | Encounter Summary ---
:1945 Author Organization [facility] Address [address] [place] [address] Care Team Providers Name Role Phone Unavailable Primary Care Provider Unavailable Encounter Details Date Type Department Care Team Description 08/11/2021 Treatment [facility] Ernie Guzmán MD [address] [place] [address] [place], [place] [phone] [phone] (Wo rk) Social History Tobacco Use Types Packs/Day Years Used Date Smoking Tobacco: Unknown Comments: Smoking History Info:Patient n ot screened Sex Assigned at Date Recorded Not on file documented as of this encounter Miscellaneous Notes Dialysis Note - Ernie Pompa MD - 08/11/2021 10:15 AM CDT Date: August 11, 2021 Patient Name: Shaun Ocampo : 1945 Chart #: [id number] Sex: M This patient was personally seen [...] AM ) BP (sit): 97/38 AP(-) / CERAMICS TEST ENGINEER: 177/134 Pulse: 67 Chairside data as of [...] 50 mg IVP 1X Week 07/26/2021 07/25/2022 CLINICAL LAW PROFESSOR: Ernie Pompa MD LOCATION: [phone] SCHEDULE: -- 2nd Shift ACCESS: EDW: kg. DIALYZER: HD DURATION: NEEDLE SIZE: ANTICOAG: BATH: QB: ml/min QD: ml/min Subjective Tolerating dialysis well. 08/11: Continues to have problems with fluid gains. we have spent considerable time discussing this, he is trying to work on this but can't seem to avoid large gains. Will go to [place] for UF tomorrow, needs extra treatments every 2 weeks it looks like to maintain EDW. He does get SOB when >5K over dry weight in particular. 07/21/21: Continues to struggle with fluid gains, extra UF run scheduled tomorrow at [place]. He does feel more SOB when fluid overloaded. No new symptoms otherwise, he is enjoying the nicer weather which allows him to do more activity and not sit at home and drink fluids which he thinks will help with IDWG's. 07/14/21: Continues to have high gains, unfortunately [place] without staff to open tomorrow for extra [...] improving. Fluid gains continue to be high, [place] not open on this week, says he will do his best withlimiting salt/fluid. HE does feel SOB with exertion with extra fluid on, no orthopnea. 05/26/21: Has SOB when >5 Kg over dry weight, extra run last week at [place] helped. Trying his best with fluid restriction. [...] extra run and we discussed going to [place] tomorrow for UF only run and he [...] again today, may need extra run at [place] if can't get down over next week. 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 06/10: Doing well overall, no new complaints, [...] Went to Urgent care -> ER in [place] yesterday,CT with R hydro but no obstructive [...] (06/23/21) Vascular Access Assessment: Type of access: [id number]/[email or web address] Surgeon - Lary GARDNER Access working well Impression and Plan Stable dialysis overall, no changes to prescription made Parsabiv to continue, calcitriol increase as able with Ca lower on this to get PTH to goal but is improving and phos is controlled Extra UF run tomorrow in [place], ongoing extra UF runs will likely be necessary with inability toget to EDW consistently Ernie Pompa MD [ Signed And locked electronically On 08/11/2021 at 10:17:39 AM ] Transcribed: Ernie Pompa ( 08/11/2021 ) documented in this encounter Plan of Treatment Not on filedocumented as of this encounter Visit Diagnoses Not on filedocumented in this encounter
--- OUTSIDE RECORDS SUMMARY | 2022-02-24 13:24 | XMS_ITS | Encounter Summary ---
:1945 Author Organization [facility] Address [address] [place] [address] Care Team Providers Name Role Phone Unavailable Primary Care Provider Unavailable Encounter Details Date Type Department Care Team Description 08/04/2021 Orders Only [facility] f Ernie Guzmán MD [phone] [place] [address] [place], [place] [phone] (Wo rk) Social History Tobacco Use [...] 08/06/2021 Unless otherwise specified, test(s) performed at: [facility], [address] [place] [address] IRONING PLEATER: Alec Payan M.D. For any questions, please call customer service at FREQUENCY:OTHER Resulting Agency Comment Specimen source: Serum Ernie Pompa MD LAB BLOOD ORDERABLES Performing Organization Address City/[facility]/ZIP Code Phon e Number APS SPECTRA [facility] (ABNORMAL) Spectrae Chemistry (08/04/2021) P athologist Signature PTH 986 (H) 16 - 80 APS SPECTRA pg/mL [facility] Specimen (Source) Anatomical Collection Method Collection Time Re ceived Time Location / / Volume Laterality 08/04/2021 2021 4:27 PM CDT Narrative APS SPECTRA [facility] - 2021 Unless otherwise specified, test(s) performed at: [facility], [address] [place], [place] [id number] IRONING PLEATER: Alec Payan M.D. For any questions, please call customer service at FREQUENCY:OTHER Resulting Agency Comment Specimen source: Plasma Ernie Pompa MD LAB BLOOD ORDERABLES Performing Organization Address [facility] Phon e Number APS SPECTRA [...] 2021 Unless otherwise specified, test(s) performed at: [facility], [address] [place] [address] IRONING PLEATER: Alec Payan M.D. For any questions, please call customer service at FREQUENCY:OTHER Resulting Agency Comment Specimen source: Blood Ernie Pompa MD LAB BLOOD ORDERABLES Performing Organization Address City/[facility] Phon e Number APS SPECTRA [facility] documented in this encounter Visit Diagnoses Not on filedocumented in this encounter
--- OUTSIDE RECORDS SUMMARY | 2022-02-24 13:24 | XMS_ITS | Encounter Summary ---
:1945 Author Organization [facility] Address [address] [place] [address] Care Team Providers Name Role Phone Unavailable Primary Care Provider Unavailable Encounter Details Date Type Department Care Team Description 07/21/2021 Orders Only [facility] f Ernie Guzmán MD [address] [place] [address] [place], [place] [phone] (Wo rk) Social History Tobacco Use [...] 07/24/2021 Unless otherwise specified, test(s) performed at: [facility], [address] [place] [address] FOOD PROCESSING SCIENTIST: Alec Payan M.D. For any questions, please [...] 07/24/2021 Unless otherwise specified, test(s) performed at: [facility], [address] [place] [address] FOOD PROCESSING SCIENTIST: Alec Payan M.D. For any questions, please call customer service at FREQUENCY:MONTHLY Resulting Agency Comment Specimen source: Serum Ernie Pompa MD LAB BLOOD ORDERABLES Performing Organization Address City/[facility] Phon e Number APS SPECTRA [facility] POST CHEMISTRY (07/21/2021) P athologist Signature BUN Post 14 6 - 19 APS SPECTRA Dialysis mg/dL [facility] Specimen (Source) Anatomical Collection Method Collection Time Re ceived Time Location / / Volume Laterality 07/21/2021 07/23/2021 4:30 PM CDT Narrative APS SPECTRA [facility] - 07/24/2021 Unless otherwise specified, test(s) performed at: [facility], [address] [place] [address] FOOD PROCESSING SCIENTIST: Alec Payan M.D. For any questions, please call customer service at FREQUENCY:MONTHLY Resulting Agency Comment Specimen source: Plasma Ernie Pompa MD LAB BLOOD ORDERABLES Performing Organization Address City/[facility] Phon e Number APS SPECTRA [facility] IMMUNO CHEMISTRY (07/21/2021) P athologist Signature Hep B Surface Negative Negative APS SPECTRA Ag [facility] Specimen (Source) Anatomical Collection Method Collection Time Re ceived Time Location / / Volume Laterality 07/21/2021 07/23/2021 12:4 6 PM CDT Narrative APS SPECTRA [facility] - 07/23/2021 Unless otherwise specified, test(s) performed at: [facility], [address] [place] [address] FOOD PROCESSING SCIENTIST: Alec Payan M.D. For any questions, please [...] 07/23/2021 Unless otherwise specified, test(s) performed at: [facility], [address] [place] [address] FOOD PROCESSING SCIENTIST: Alec Payan M.D. For any questions, please call customer service at FREQUENCY:MONTHLY Resulting Agency Comment Specimen source: Blood Ernie Pompa MD LAB BLOOD ORDERABLES Performing Organization Address City/State/ZIP Code Phon e Number APS SPECTRA [facility] documented in this encounter Visit Diagnoses Not on filedocumented in this encounter
--- OUTSIDE RECORDS SUMMARY | 2022-02-24 13:24 | XMS_ITS | Encounter Summary ---
:1945 Author Organization [facility] Address [address] [place] [address] Care Team Providers Name Role Phone Unavailable Primary Care Provider Unavailable Encounter Details Date Type Department Care Team Description 07/07/2021 Orders Only [facility] f Ernie Guzmán MD [phone] [place] [address] [place], [place] [phone] (Wo rk) Social History Tobacco Use [...] 07/10/2021 Unless otherwise specified, test(s) performed at: [facility], [address] [place] [address] PHYSICAL CHEMISTRY PROFESSOR: Alec Payan M.D. For any questions, [...] 07/10/2021 Unless otherwise specified, test(s) performed at: [facility], [address] [place], [place] [id number] PHYSICAL CHEMISTRY PROFESSOR: Alec Payan M.D. For any questions, please call customer service at FREQUENCY:OTHER Resulting Agency Comment Specimen source: Plasma Ernie Pompa MD LAB BLOOD ORDERABLES Performing Organization Address [facility] Phon e Number [...] 07/10/2021 Unless otherwise specified, test(s) performed at: [facility], [address] [place] [address] PHYSICAL CHEMISTRY PROFESSOR: Alec Payan M.D. For any questions, please call customer service at FREQUENCY:OTHER Resulting Agency Comment Specimen source: Blood Ernie Pompa MD LAB BLOOD ORDERABLES Performing Organization Address City/[facility]/ZIP [facility] Phon e Number APS SPECTRA [facility] documented in this encounter Visit Diagnoses Not on filedocumented in this encounter
--- OUTSIDE RECORDS SUMMARY | 2022-02-24 13:24 | XMS_ITS | Encounter Summary ---
:1945 Author Organization [facility] Address [address] [place] [address] Care Team Providers Name Role Phone Unavailable Primary Care Provider Unavailable Encounter Details Date Type Department Care Team Description 08/20/2021 Orders Only [facility] f Ernie Guzmán MD [phone] [place] [address] [place], [place] [phone] (Wo rk) Social History Tobacco Use [...] 08/21/2021 Unless otherwise specified, test(s) performed at: [facility], [address] [place] [address] AUTOMATIC BUFFER: Alec Payan M.D. For any questions, please call customer service at FREQUENCY:OTHER Resulting Agency Comment Specimen source: Plasma Ernie Pompa MD LAB BLOOD ORDERABLES Performing Organization Address City/State/ZIP Code Phon e Number APS SPECTRA [facility] documented in this encounter Visit Diagnoses Not on filedocumented in this encounter
--- OUTSIDE RECORDS SUMMARY | 2022-02-24 13:24 | XMS_ITS | Encounter Summary ---
:1945 Author Organization [facility] Address [address] [place] [address] Care Team Providers Name Role Phone Unavailable Primary Care Provider Unavailable Encounter Details Date Type Department Care Team Description 09/08/2021 Orders [facility] f Ernie Guzmán MD [address] [place] [address] [place], [place] [phone] (Wo rk) Social History Tobacco Use [...] 09/09/2021 Unless otherwise specified, test(s) performed at: [facility], [address] [place] [address] SHELTER SUPERVISOR: Alec Payan M.D. For any questions, please call customer service at FREQUENCY:OTHER Resulting Agency Comment Specimen source: Blood Ernie Pompa MD LAB BLOOD ORDERABLES Performing Organization Address City/State/ZIP Code Phon e Number APS SPECTRA [facility] documented in this encounter Visit Diagnoses Not on filedocumented in this encounter
--- OUTSIDE RECORDS SUMMARY | 2022-02-24 13:24 | XMS_ITS | Encounter Summary ---
:1945 Author Organization [facility] Address [address] [place] [address] Care Team Providers Name Role Phone Unavailable Primary Care Provider Unavailable Encounter Details Date Type Department Care Team Description 08/30/2021 Orders Only [facility] O f Ernie Guzmán MD [address] [place] [address] [place], [place] [phone] (Wo rk) Social History Tobacco Use [...] 08/31/2021 Unless otherwise specified, test(s) performed at: [facility], [address] [place] [address] MUCK FARMER: Alec Payan M.D. For any questions, please call customer service at FREQUENCY:OTHER Resulting Agency Comment Specimen source: Serum Ernie Pompa MD LAB BLOOD ORDERABLES Performing Organization Address City/[facility] Phon e Number APS SPECTRA [facility] (ABNORMAL) Spectrae Chemistry (08/30/2021) athologist Signature BUN 55 (H) 6 - 19 APS SPECTRA mg/dL [facility] Specimen (Source) Anatomical Collection Method Collection Time Re ceived Time Location / / Volume Laterality 08/30/2021 08/31/2021 5:11 PM CDT Narrative APS SPECTRA [facility] - 08/31/2021 Unless otherwise specified, test(s) performed at: [facility], [address] [place] [address] MUCK FARMER: Alec Payan M.D. For any questions, please call customer service at FREQUENCY:OTHER Resulting Agency Comment Specimen source: Serum Ernie Pompa MD LAB BLOOD ORDERABLES Performing Organization Address City/[facility] Phon e Number APS SPECTRA [facility] POST CHEMISTRY (08/30/2021) athologist Signature BUN Post 16 6 - 19 APS SPECTRA Dialysis mg/dL [facility] Specimen (Source) Anatomical Collection Method Collection Time Re ceived Time Location / / Volume Laterality 08/30/2021 08/31/2021 1:52 PM CDT Narrative APS SPECTRA [facility] - 08/31/2021 Unless otherwise specified, test(s) performed at: [facility], [address] [place] [address] MUCK FARMER: Alec Payan M.D. For any questions, please call customer service at FREQUENCY:OTHER Resulting Agency Comment Specimen source: Plasma Ernie Pompa MD LAB BLOOD ORDERABLES Performing Organization Address City/State/ZIP Code Phon e Number APS SPECTRA [facility] documented in this encounter Visit Diagnoses Not on filedocumented in this encounter
--- OUTSIDE RECORDS SUMMARY | 2022-02-24 13:24 | XMS_ITS | Encounter Summary ---
:1945 Author Organization [facility] Address [address] [place] [address] Care Team Providers Name Role Phone Unavailable Primary Care Provider Unavailable Encounter Details Date Type Department Care Team Description 08/18/2021 Orders Only [facility] f Ernie Guzmán MD [address] [place] [address] [place], [place] [phone] (Wo rk) Social History Tobacco Use [...] spKt/V 1.34 KAMERON (Daugirdas II) PCR 69.42 KAMREON nPCR_HD 0.92 KAMERON eKt/V Gotch 1.21 KAMERON [...] ORDERABLES Performing Organization Address [facility]/ZIP Code Phon e Number APS SPECTRA [facility] POST CHEMISTRY (08/18/2021) P athologist Signature BUN Post 17 6 - 19 APS SPECTRA Dialysis mg/dL [facility] Specimen (Source) Anatomical Collection Method Collection Time Re ceived Time Location / / Volume Laterality 08/18/2021 08/20/2021 12:5 8 AM CDT Narrative APS SPECTRA [facility] - 08/20/2021 Unless otherwise specified, test(s) performed at: [facility], [address] [place] [address] STOP ATTACHER: Alec Payan M.D. For any questions, please [...] 08/20/2021 Unless otherwise specified, test(s) performed at: [facility], [address] [place] [address] STOP ATTACHER: Alec Payan M.D. For any questions, please call customer service at FREQUENCY:MONTHLY Resulting Agency Comment Specimen source: Blood Ernie Pompa MD LAB BLOOD ORDERABLES Performing Organization Address City/[facility] Phon e Number APS SPECTRA [facility] (ABNORMAL) Spectrae Chemistry (08/18/2021) P athologist Signature PTH 766 (H) 16 - 80 APS SPECTRA pg/mL [facility] Specimen (Source) Anatomical Collection Method Collection Time Re ceived Time Location / / Volume Laterality 08/18/2021 08/19/2021 8:21 PM CDT Narrative APS SPECTRA [facility] - 08/20/2021 Unless otherwise specified, test(s) performed at: [facility], [address] [place] [address] STOP ATTACHER: Alec Payan M.D. For any questions, please call customer service at FREQUENCY:MONTHLY Resulting Agency Comment Specimen source: Plasma Ernie Pompa MD LAB BLOOD ORDERABLES Performing Organization Address City/[facility] Phon e Number APS SPECTRA [...] 08/20/2021 Unless otherwise specified, test(s) performed at: [facility], [address] [place] [address] STOP ATTACHER: Alec Payan M.D. For any questions, please [...] 08/19/2021 Unless otherwise specified, test(s) performed at: [facility], [address] [place] [address] STOP ATTACHER: Alec Payan M.D. For any questions, please call customer service at FREQUENCY:MONTHLY Resulting Agency Comment Specimen source: Serum Ernie Pompa MD LAB BLOOD ORDERABLES Performing Organization Address City/State/ZIP Code Phon e Number APS SPECTRA [facility] documented in this encounter Visit Diagnoses Not on filedocumented in this encounter
--- OUTSIDE RECORDS SUMMARY | 2022-02-24 13:24 | XMS_ITS | Encounter Summary ---
:1945 Author Organization [facility] Address [address] [place] [address] Care Team Providers Name Role Phone Unavailable Primary Care Provider Unavailable Encounter Details Date Type Department Care Team Description 09/15/2021 Treatment [facility] f Ernie Guzmán MD [address] [place] [address] [place], [place] [phone] (Wo rk) Social History Tobacco Use Types Packs/Day Years Used Date Smoking Tobacco: Unknown Comments: Smoking History Info:Patient n ot screened Sex Assigned at Date Recorded Not on file documented as of this encounter Miscellaneous Notes Dialysis Note - Ernie Pompa MD - 09/15/2021 10:30 AM CDT Date: Sep 15, 2021 Patient Name: Shaun Ocampo : 1945 Chart #: [id number] Sex: M This patient was personally seen [...] AM ) BP (sit): 107/33 AP(-) / SEAT TRIMMER: n/a Pulse: 65 Chairside data as of [...] mcg IVP Every 2 weeks 09/15/2021 09/14/2022 GAS CHECK PAD MAKER: Ernie Pompa MD LOCATION: [phone] SCHEDULE: -- 2nd Shift ACCESS: EDW: kg. [...] do periodic extra UF treatments at [facility] [place] rather than risk more hypotension post-tx with use of midodrine and additional UF during treatments. He has fistulagram last week, went well and access working well since. 08/11: Continues to have problems with fluid gains. we have spent considerable time discussing this, he is trying to work on this but can't seem to avoid large gains. Will go to [place] for UF tomorrow, needs extra treatments every 2 weeks it looks like to maintain EDW. He does get SOB when >5K over dry weight in particular. 07/21/21: Continues to struggle with fluid gains, extra UF run scheduled tomorrow at [place]. He does feel more SOB when fluid overloaded. No new symptoms otherwise, he is enjoying the nicer weather which allows him to do more activity and not sit at home and drink fluids which he thinks will help with IDWG's. 07/14/21: Continues to have high gains, unfortunately [facility] without staff to open tomorrow for extra [...] Fluid gains continue to be high, [facility] not open on this week, says he will do his best withlimiting salt/fluid. HE does feel SOB with exertion with extra fluid on, no orthopnea. 05/26/21: Has SOB when >5 Kg over dry weight, extra run last week at [place] helped. Trying his best with fluid restriction. [...] run and we discussed going to [place] tomorrow for UF only run and he [...] today, may need extra run at [place] if can't get down over next week. 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 06/10: Doing well overall, no new [...] Went to Urgent care -> ER in [place] yesterday,CT with R hydro but no obstructive [...] (08/18/21) Vascular Access Assessment: Type of access: Ajkirkk14/2019 Surgeon - Lary GARDNER 08/2021: fistulagram at [facility] with angioplasty of stenosis completed Impression and Plan Stable dialysis overall, no changes to prescription made Continue to work on fluid gains, likely will need extra UF run every couple of weeks at [place] I asked him to schedule follow-up with [...]
--- OUTSIDE RECORDS SUMMARY | 2022-02-24 13:24 | XMS_ITS | Encounter Summary ---
:1945 Author Organization [facility] Address [address] [place] [address] Care Team Providers Name Role Phone Unavailable Primary Care Provider Unavailable Encounter Details Date Type Department Care Team Description 09/29/2021 Orders Only [facility] O f Ernie Guzmán MD [address] [place] [address] [place], [place] [phone] (Wo rk) Social History Tobacco Use [...] 09/30/2021 Unless otherwise specified, test(s) performed at: [facility], [address] [place] [address], [place] [address] PRINTED CIRCUIT DESIGNER: Alhaji Noguera M.D., Ph.D For any questions, [...] 09/30/2021 Unless otherwise specified, test(s) performed at: [facility], [address] [place], [place] [address]francisca HernandezS[place] [address] PRINTED CIRCUIT DESIGNER: Alhaji Noguera M.D., Ph.D For any questions, please call customer service at FREQUENCY:OTHER Resulting Agency Comment Specimen source: Blood Ernie Pompa MD LAB BLOOD ORDERABLES Performing Organization Address City/[facility] Code Phon e Number APS SPECTRA [facility] documented in this encounter Visit Diagnoses Not on filedocumented in this encounter
--- OUTSIDE RECORDS SUMMARY | 2022-02-24 13:24 | XMS_ITS | Encounter Summary ---
:1945 Author Organization [facility] Address [address] [place] [address] Care Team Providers Name Role Phone Unavailable Primary Care Provider Unavailable Encounter Details Date Type Department Care Team Description 07/21/2021 Treatment [facility] f Ernie Guzmán MD [address] [place] [address] [place], [place] [phone] [phone] (Wo rk) Social History Tobacco Use Types Packs/Day Years Used Date Smoking Tobacco: Unknown Comments: Smoking History Info:Patient n ot screened Sex Assigned at Date Recorded Not on file documented as of this encounter Miscellaneous Notes Dialysis Note - Ernie Pompa MD - 07/21/2021 9:02 AM CDT Date: July 21, 2021 Patient Name: Shaun Ocampo : 1945 Chart #: [id number] Sex: M This patient was personally seen [...] AM ) BP (sit): 112/56 AP(-) / CONSULTANT EDUCATION: 158/144 Pulse: 77 Chairside data as of [...] mcg IVP Every 2 weeks 07/21/2021 07/20/2022 CONTINUOUS IMPROVEMENT FACILITATOR: Ernie Pompa MD LOCATION: [place] [phone] SCHEDULE: -W- 2nd Shift EDW: kg. DIALYZER: HD DURATION: NEEDLE SIZE: ANTICOAG: BATH: QB: ml/min QD: ml/min Subjective Tolerating dialysis well. 07/21/21: Continues to struggle with fluid gains, extra UF run scheduled tomorrow at [place]. He does feel more SOB when fluid overloaded. No new symptoms otherwise, he is enjoying the nicer weather which allows him to do more activity and not sit at home and drink fluids which he thinks will help with IDWG's. 07/14/21: Continues to have high gains, unfortunately [place] without staff to open tomorrow for extra [...] improving. Fluid gains continue to be high, [place] not open on this week, says he will do his best withlimiting salt/fluid. HE does feel SOB with exertion with extra fluid on, no orthopnea. 05/26/21: Has SOB when >5 Kg over dry weight, extra run last week at [place] helped. Trying his best with fluid restriction. [...] extra run and we discussed going to [place] tomorrow for UF only run and he [...] again today, may need extra run at [place] if can't get down over next week. 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 06/10: Doing well overall, no new complaints, [...] Went to Urgent care -> ER in [place] yesterday,CT with R hydro but no obstructive [...] prescription. Vascular Access Assessment Type of access: [id number]/2019 Surgeon - Lary GARDNER Access working well [...] at goal. Intact PTH is above goal. Field Operations Farm Manager will adjust binders and vitamin D [...] euvolemia, extra UF run planned 07/22/21 at [place] Transplant Status: Patient is not a candidate. Weight, co-morbidities, age Resuscitation Status Stable dialysis, no changes to prescription Extra UF run tomorrow at [place] Continue work on lower IDWG's Monthly labs being drawn today Ernie Pompa MD [ Signed And locked electronically On 07/21/2021 at 09:05:19 AM ] Transcribed: Ernie Pompa ( 07/21/2021 ) documented in this encounter Plan of Treatment Not on filedocumented as of this encounter Visit Diagnoses Not on filedocumented in this encounter
--- OUTSIDE RECORDS SUMMARY | 2022-02-24 13:24 | XMS_ITS | Encounter Summary ---
:1945 Author Organization [facility] Address [address] [place] [address] Care Team Providers Name Role Phone Unavailable Primary Care Provider Unavailable Encounter Details Date Type Department Care Team Description 09/29/2021 Treatment [facility] f Ernie Guzmán MD [address] [place] [address] [place], [place] [phone] (Wo rk) Social History Tobacco Use Types Packs/Day Years Used Date Smoking Tobacco: Unknown Comments: Smoking History Info:Patient n ot screened Sex Assigned at Date Recorded Not on file documented as of this encounter Miscellaneous Notes Dialysis Note - Ernie Pompa MD - 09/29/2021 10:30 AM CDT Date: Sep 29, 2021 Patient Name: Shaun Ocampo : 1945 Chart #: [id number] Sex: M This patient was personally seen [...] AM ) BP (sit): 109/45 AP(-) / PLUMBER GASFITTER: 168/138 Pulse: 57 Chairside data as of [...] 08/27/2021 05/28/2021 04/23/2021 Access Flow [id number] Treatment Medication Orders Medication Sig Start [...] mcg IVP Every 2 weeks 09/29/2021 09/28/2022 ACCOUNTS PAYABLE COORDINATOR: Ernie Pompa MD LOCATION: [phone] SCHEDULE: -- 2nd Shift EDW: kg. DIALYZER: [...] and do periodic extra UF treatments at [facility] rather than risk more hypotension post-tx with use of midodrine and additional UF during treatments. He has fistulagram last week, went well and access working well since. 08/11: Continues to have problems with fluid gains. we have spent considerable time discussing this, he is trying to work on this but can't seem to avoid large gains. Will go to [place] for UF tomorrow, needs extra treatments every 2 weeks it looks like to maintain EDW. He does get SOB when >5K over dry weight in particular. 07/21/21: Continues to struggle with fluid gains, extra UF run scheduled tomorrow at [place]. He does feel more SOB when fluid overloaded. No new symptoms otherwise, he is enjoying the nicer weather which allows him to do more activity and not sit at home and drink fluids which he thinks will help with IDWG's. 07/14/21: Continues to have high gains, unfortunately [place] without staff to open tomorrow for extra [...] improving. Fluid gains continue to be high, [place] not open on this week, says he will do his best withlimiting salt/fluid. HE does feel SOB with exertion with extra fluid on, no orthopnea. 05/26/21: Has SOB when >5 Kg over dry weight, extra run last week at [place] helped. Trying his best with fluid restriction. [...] extra run and we discussed going to [place] tomorrow for UF only run and he [...] again today, may need extra run at [place] if can't get down over next week. 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 06/10: Doing well overall, no new complaints, [...] Went to Urgent care -> ER in [place] yesterday,CT with R hydro but no obstructive [...] prescription. Vascular Access Assessment Type of access: [id number]/2019 Surgeon - Lary GARDNER 08/2021: [place] [facility] [place]oplasty of stenosis completed Anemia Assessment [...] at goal. Intact PTH is above goal. Engineering Assistant will adjust binders and vitamin D [...] remain high Extra UF run tomorrow at [place] Transplant Status: Patient is not a candidate. Weight, co-morbidities, age Resuscitation Status Stable dialysis, no changes to prescription Extra UF run at [place] tomorrow Ongoing attempts at lower IDWG's Discussed [...]
--- OUTSIDE RECORDS SUMMARY | 2022-02-24 13:24 | XMS_ITS | Encounter Summary ---
:1945 Author Organization [facility] Address [address] [place] [address] Care Team Providers Name Role Phone Unavailable Primary Care Provider Unavailable Encounter Details Date Type Department Care Team Description 10/06/2021 Orders Only [facility] f Ernie Guzmán MD [address] [place] [address] [place], [place] [phone] (Wo rk) Social History Tobacco Use [...] 10/07/2021 Unless otherwise specified, test(s) performed at: [facility], [address] [place] [address], [place] [address] TELECOM SPECIALIST: Alhaji Noguera M.D., Ph.D For any questions, please call customer service at FREQUENCY:OTHER Resulting Agency Comment Specimen source: Blood Ernie Pompa MD LAB BLOOD ORDERABLES Performing Organization Address City/State/ZIP Code Phon e Number APS SPECTRA [facility] documented in this encounter Visit Diagnoses Not on filedocumented in this encounter
--- OUTSIDE RECORDS SUMMARY | 2022-02-24 13:24 | XMS_ITS | Encounter Summary ---
:1945 Author Organization [facility] Address [address] [place] [address] Care Team Providers Name Role Phone Unavailable Primary Care Provider Unavailable Encounter Details Date Type Department Care Team Description 06/23/2021 Orders Only [facility] O f Ernie Guzmán MD [address] [place] [address] [place], [place] [phone] (Wo rk) Social History Tobacco Use [...] 06/28/2021 Unless otherwise specified, test(s) performed at: [facility], [address] [place], [place] [id number] SENIOR GRANTS OFFICER: Alec Payan M.D. For any questions, [...] 06/28/2021 Unless otherwise specified, test(s) performed at: [facility], [address] [place] [address] SENIOR GRANTS OFFICER: Alec Payan, M.D. For any questions, please [...] 06/28/2021 Unless otherwise specified, test(s) performed at: [facility], [address] [place] [address] SENIOR GRANTS OFFICER: Alec Payan M.D. For any questions, please call customer service at FREQUENCY:MONTHLY Resulting Agency Comment Specimen source: Serum Ernie Pompa MD LAB BLOOD ORDERABLES Performing Organization Address City/[facility] Phon e Number APS SPECTRA [facility] (ABNORMAL) Spectrae Chemistry (06/23/2021) P athologist Signature PTH 1,243 (H) 16 - 80 APS SPECTRA pg/mL [facility] Specimen (Source) Anatomical Collection Method Collection Time Re ceived Time Location / / Volume Laterality 06/23/2021 06/28/2021 10:1 5 AM CDT Narrative [facility]PS [facility] - 06/28/2021 Unless otherwise specified, test(s) performed at: [facility], [address] [place] [address] SENIOR GRANTS OFFICER: Alec Payan M.D. For any questions, please call customer service at FREQUENCY:MONTHLY Resulting Agency Comment Specimen source: Plasma Ernie Pompa MD LAB BLOOD ORDERABLES Performing Organization Address City/[facility] Code Phon e Number APS SPECTRA [facility] documented in this encounter Visit Diagnoses Not on filedocumented in this encounter
--- OUTSIDE RECORDS SUMMARY | 2022-02-24 13:24 | XMS_ITS | Encounter Summary ---
:1945 Author Organization [facility] Address [address] [place] [address] Care Team Providers Name Role Phone Unavailable Primary Care Provider Unavailable Encounter Details Date Type Department Care Team Description 09/22/2021 Orders Only [facility] O f Ernie Guzmán MD [address] [place] [address] [place], [place] [phone] (Wo rk) Social History Tobacco Use [...] 09/24/2021 Unless otherwise specified, test(s) performed at: [facility], [address] [place] [address], [place] [address] C D REACTOR OPERATOR: Alhaji Noguera M.D., Ph.D For any [...] APS SPECTRA [facility] (ABNORMAL) Spectrae Chemistry (09/22/2021) [facility] gist Method Time Signature BUN 41 (H) [...] 09/24/2021 Unless otherwise specified, test(s) performed at: [facility], [address] [place] [address], [place] [address] C D REACTOR OPERATOR: Alhaji Noguera M.D., Ph.D For any questions, please call customer service at FREQUENCY:MONTHLY Resulting Agency Comment Specimen source: Serum Ernie Pompa MD LAB BLOOD ORDERABLES Performing Organization Address [facility] Phon e Number APS SPECTRA [facility] POST CHEMISTRY (09/22/2021) P athologist Signature BUN Post 12 6 - 19 APS SPECTRA Dialysis mg/dL [facility] Specimen (Source) Anatomical Collection Method Collection Time Re ceived Time Location / / Volume Laterality 09/22/2021 09/24/2021 4:03 PM CDT Narrative APS SPECTRA [facility] - 09/24/2021 Unless otherwise specified, test(s) performed at: [facility], [address] [place] [address] C D REACTOR OPERATOR: Alhaji Noguera M.D., Ph.D For any questions, please call customer service at FREQUENCY:MONTHLY Resulting Agency Comment Specimen source: Plasma Ernie Pompa MD LAB BLOOD ORDERABLES Performing Organization Address [facility] Phon e Number APS SPECTRA [...] 09/24/2021 Unless otherwise specified, test(s) performed at: [facility], [address] [place] [address] C D REACTOR OPERATOR: Alhaji Noguera M.D., Ph.D For any [...] 09/24/2021 Unless otherwise specified, test(s) performed at: [facility], [address] [facility] [address] C D REACTOR OPERATOR: Alhaji Noguera M.D., Ph.D For any questions, please call customer service at FREQUENCY:MONTHLY Resulting Agency Comment Specimen source: Plasma Ernie Pompa MD LAB BLOOD ORDERABLES Performing Organization Address City/[facility] Phon e Number APS SPECTRA [facility] documented in this encounter Visit Diagnoses Not on filedocumented in this encounter
--- OUTSIDE RECORDS SUMMARY | 2022-02-24 13:24 | XMS_ITS | Encounter Summary ---
:1945 Author Organization [facility] Address [address] [place] [address] Care Team Providers Name Role Phone Unavailable Primary Care Provider Unavailable Encounter Details Date Type Department Care Team Description 09/13/2021 Orders Only [facility] O f Ernie Guzmán MD [phone] [place] [address] [place], [place] [phone] (Wo rk) Social History Tobacco Use [...] 09/14/2021 Unless otherwise specified, test(s) performed at: [facility], [address] [place] [address] BACKPACKERS MANAGER: Alec Payan M.D. For any questions, [...] 09/14/2021 Unless otherwise specified, test(s) performed at: [facility], [address] [place] [address] BACKPACKERS MANAGER: Alec Payan M.D. For any questions, please call customer service at FREQUENCY:OTHER Resulting Agency Comment Specimen source: Plasma Ernie Pompa MD LAB BLOOD ORDERABLES Performing Organization Address City/[facility]/ZIP Code Phon e Number APS SPECTRA [facility] documented in this encounter Visit Diagnoses Not on filedocumented in this encounter
--- OUTSIDE RECORDS SUMMARY | 2022-02-24 13:24 | XMS_ITS | Encounter Summary ---
:1945 Author Organization [facility] Address [address] [place] [address] Care Team Providers Name Role Phone Unavailable Primary Care Provider Unavailable Encounter Details Date Type Department Care Team Description 07/14/2021 Treatment [facility] f Ernie Guzmán MD [address] [place] [address] [place], [place] [phone] (Wo rk) Social History Tobacco Use Types Packs/Day Years Used Date Smoking Tobacco: Unknown Comments: Smoking History Info:Patient n ot screened Sex Assigned at Date Recorded Not on file documented as of this encounter Miscellaneous Notes Dialysis Note - Ernie Pompa MD - 07/14/2021 9:22 AM CDT Date: Jul 14, 2021 Patient Name: Shaun Ocampo : 1945 Chart #: [id number] Sex: M This patient was personally seen [...] AM ) BP (sit): 99/43 AP(-) / TIE HACKER: 152/133 Pulse: 67 Chairside data as of [...] mcg IVP Every 4 weeks 06/23/2021 06/22/2022 MANAGEMENT PROFESSIONAL: Ernie Pompa MD LOCATION: [place] [phone] SCHEDULE: -- 2nd Shift ACCESS: EDW: kg. DIALYZER: HD DURATION: NEEDLE SIZE: ANTICOAG: BATH: QB: ml/min QD: ml/min Subjective Tolerating dialysis well. 07/14/21: Continues to have high gains, unfortunately [place] without staff to open tomorrow for extra [...] improving. Fluid gains continue to be high, [place] not open on this week, says he will do his best withlimiting salt/fluid. HE does feel SOB with exertion with extra fluid on, no orthopnea. 05/26/21: Has SOB when >5 Kg over dry weight, extra run last week at [place] helped. Trying his best with fluid restriction. [...] extra run and we discussed going to [place] tomorrow for UF only run and he [...] again today, may need extra run at [place] if can't get down over next week. 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 06/10: Doing well overall, no new complaints, [...] Went to Urgent care -> ER in [place] yesterday,CT with R hydro but no obstructive [...] He had infiltration last week, dialyzed at [facility] on Sat and went well, access [...] (05/26/21) Vascular Access Assessment: Type of access: [id number]/2019 Surgeon - Lary GARDNER Access working well [...] to go further to get this as [place] not open but he doesn't feel he can drive that far Ernie Pompa MD [ Signed And locked electronically On 07/14/2021 at 09:24:45 AM ] Transcribed: Ernie Pompa ( 07/14/2021 ) documented in this encounter Plan of Treatment Not on filedocumented as of this encounter Visit Diagnoses Not on filedocumented in this encounter
--- OUTSIDE RECORDS SUMMARY | 2022-02-24 13:24 | XMS_ITS | Encounter Summary ---
:1945 Author Organization [facility] Address [address] [place] [address] Care Team Providers Name Role Phone Unavailable Primary Care Provider Unavailable Encounter Details Date Type Department Care Team Description 09/15/2021 Orders Only [facility] O f Ernie Guzmán MD [address] [place] [address] [place], [place] [phone] (Wo rk) Social History Tobacco Use [...] Unless otherwise specified, test(s) performed at: [facility], [address] [place] [address] LANDSCAPE ARCHITECT AND PLANNER: Alec Payan M.D. For any questions, please call customer service at FREQUENCY:OTHER Resulting Agency Comment Specimen source: Blood Ernie Pompa MD LAB BLOOD ORDERABLES Performing Organization Address City/State/ZIP Code Phon e Number APS SPECTRA [facility] documented in this encounter Visit Diagnoses Not on filedocumented in this encounter
--- OUTSIDE RECORDS SUMMARY | 2022-02-24 13:24 | XMS_ITS | Encounter Summary ---
:1945 Author Organization [facility] Address [address] [place] [address] Care Team Providers Name Role Phone Unavailable Primary Care Provider Unavailable Encounter Details Date Type Department Care Team Description 07/14/2021 Orders [facility] O f Ernie Guzmán MD [address] [place] [address] [place], [place] [phone] (Wo rk) Social History Tobacco Use [...] 07/15/2021 Unless otherwise specified, test(s) performed at: [facility], [address] [place] [address] HARVEST CREW SUPERVISOR: Alec Payan M.D. For any questions, please call customer service at FREQUENCY:OTHER Resulting Agency Comment Specimen source: Blood Ernie Pompa MD LAB BLOOD ORDERABLES Performing Organization Address City/State/ZIP Code Phon e Number APS SPECTRA [facility] documented in this encounter Visit Diagnoses Not on filedocumented in this encounter
--- OUTSIDE RECORDS SUMMARY | 2022-02-24 13:24 | XMS_ITS | Encounter Summary ---
:1945 Author Organization [facility] Address [address] [place] [address] Care Team Providers Name Role Phone Unavailable Primary Care Provider Unavailable Encounter Details Date Type Department Care Team Description 08/25/2021 Orders [facility] O f Ernie Guzmán MD [address] [place] [address] [place], [place] [phone] (Wo rk) Social History Tobacco Use [...] 08/27/2021 Unless otherwise specified, test(s) performed at: [facility], [address] [place] [address] GROUNDSKEEPER PORTER: Alec Payan M.D. For any questions, please call customer service at FREQUENCY:OTHER Resulting Agency Comment Specimen source: Blood Enrie Pompa MD LAB BLOOD ORDERABLES Performing Organization Address City/State/ZIP Code Phon e Number APS SPECTRA [facility] documented in this encounter Visit Diagnoses Not on filedocumented in this encounter
--- OUTSIDE RECORDS SUMMARY | 2022-02-24 13:24 | XMS_ITS | Encounter Summary ---
:1945 Author Organization [facility] Address [address] [place] [address] Care Team Providers Name Role Phone Unavailable Primary Care Provider Unavailable Encounter Details Date Type Department Care Team Description 09/01/2021 Orders [facility] O f Ernie Guzmán MD [address] [place] [address] [place], [place] [phone] (Wo rk) Social History Tobacco Use [...] 09/03/2021 Unless otherwise specified, test(s) performed at: [facility], [address] [place] [address] ROOF TRUSS DETAILER: Alec Payan M.D. For any questions, please call customer service at FREQUENCY:OTHER Resulting Agency Comment Specimen source: Serum Ernie Pompa MD LAB BLOOD ORDERABLES Performing Organization Address City/[facility] Phon [...] 09/02/2021 Unless otherwise specified, test(s) performed at: [facility], [address] [place] [address] ROOF TRUSS DETAILER: Alec Payan M.D. For any questions, please call customer service at FREQUENCY:OTHER Resulting Agency Comment Specimen source: Blood Ernie Pompa MD LAB BLOOD ORDERABLES Performing Organization Address City/[facility] Phon e Number APS SPECTRA [facility] documented in this encounter Visit Diagnoses Not on filedocumented in this encounter
--- OUTSIDE RECORDS SUMMARY | 2022-02-24 13:24 | XMS_ITS | Encounter Summary ---
:1945 Author Organization [facility] Address [address] [place] [address] Care Team Providers Name Role Phone Unavailable Primary Care Provider Unavailable Encounter Details Date Type Department Care Team Description 08/11/2021 Orders [facility] O f Ernie Guzmán MD [address] [place] [address] [place], [place] [phone] (Wo rk) Social History Tobacco Use [...] 08/12/2021 Unless otherwise specified, test(s) performed at: [facility], [address] [place] [address] BONDING EQUIPMENT OPERATOR: Alec Payan M.D. For any questions, please call customer service at FREQUENCY:OTHER Resulting Agency Comment Specimen source: Blood Ernie Pompa MD LAB BLOOD ORDERABLES Performing Organization Address City/State/ZIP Code Phon e Number APS SPECTRA [facility] documented in this encounter Visit Diagnoses Not on filedocumented in this encounter
--- OUTSIDE RECORDS SUMMARY | 2022-02-24 13:24 | XMS_ITS | Encounter Summary ---
:1945 Author Organization [facility] Address [address] [place] [address] Care Team Providers Name Role Phone Unavailable Primary Care Provider Unavailable Encounter Details Date Type Department Care Team Description 08/25/2021 Treatment [facility] f Ernie Guzmán MD [address] [place] [address] [place], [place] [phone] [phone] (Wo rk) Social History Tobacco Use Types Packs/Day Years Used Date Smoking Tobacco: Unknown Comments: Smoking History Info:Patient n ot screened Sex Assigned at Date Recorded Not on file documented as of this encounter Miscellaneous Notes Dialysis Note - Ernie Pompa MD - 08/25/2021 10:16 AM CDT Date: Aug 25, 2021 Patient Name: Shaun Ocampo : 1945 Chart #: [id number] Sex: M This patient was personally seen [...] AM ) BP (sit): 118/41 AP(-) / FLORIST'S DECORATOR: 171/153 Pulse: 69 Chairside data as of [...] mcg IVP Every 2 weeks 08/25/2021 08/24/2022 PLANNING FEEDER: Ernie Pompa MD LOCATION: [phone] SCHEDULE: -- 2nd Shift EDW: kg. DIALYZER: [...] and do periodic extra UF treatments at [facility] rather than risk more hypotension post-tx with use of midodrine and additional UF during treatments. He has fistulagram last week, went well and access working well since. 08/11: Continues to have problems with fluid gains. we have spent considerable time discussing this, he is trying to work on this but can't seem to avoid large gains. Will go to [facility] for UF tomorrow, needs extra treatments every 2 weeks it looks like to maintain EDW. He does get SOB when >5K over dry weight in particular. 07/21/21: Continues to struggle with fluid gains, extra UF run scheduled tomorrow at [facility]. He does feel more SOB when fluid overloaded. No new symptoms otherwise, he is enjoying the nicer weather which allows him to do more activity and not sit at home and drink fluids which he thinks will help with IDWG's. 07/14/21: Continues to have high gains, unfortunately [facility] without staff to open tomorrow for extra [...] improving. Fluid gains continue to be high, [facility] not open on this week, says he will do his best withlimiting salt/fluid. HE does feel SOB with exertion with extra fluid on, no orthopnea. 05/26/21: Has SOB when >5 Kg over dry weight, extra run last week at [facility] helped. Trying his best with fluid restriction. 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 06/10: Doing well overall, no new complaints, [...] Went to Urgent care -> ER in [place] yesterday,CT with R hydro but no obstructive [...] prescription. Vascular Access Assessment Type of access: [id number] Surgeon - Lary GARDNER 08/2021: fistulagram at [...] at goal. Intact PTH is above goal. Dispensing Operator will adjust binders and vitamin D [...] maintain euvolemia, extra UF run planned at [facility] when they areopen either tomorrow or next week on Transplant Status: Patient is not a candidate. Weight, co-morbidities, age Resuscitation Status Stable dialysis, no changes to prescription Extra UF run at [facility] Continue work on lower IDWG's Titrate Vit [...]
--- OUTSIDE RECORDS SUMMARY | 2022-02-24 13:25 | XMS_ITS | Encounter Summary ---
:1945 Author Organization [facility] Address [address] [place] [address] Care Team Providers Name Role Phone Unavailable Primary Care Provider Unavailable Encounter Details Date Type Department Care Team Description 06/16/2021 Orders [facility] f Ernie Guzmán MD [phone] [place] [address] [place], [place] [phone] (Wo rk) Social History Tobacco Use [...] 06/17/2021 Unless otherwise specified, test(s) performed at: [facility], [address] [place] [address] STONE LAYER: Alec Payan M.D. For any questions, please call customer service at FREQUENCY:OTHER Resulting Agency Comment Specimen source: Blood Ernie Pompa MD LAB BLOOD ORDERABLES Performing Organization Address City/State/ZIP Code Phon e Number APS SPECTRA [facility] documented in this encounter Visit Diagnoses Not on filedocumented in this encounter
--- OUTSIDE RECORDS SUMMARY | 2022-02-24 13:25 | XMS_ITS | Encounter Summary ---
:1945 Author Organization [facility] Address [address] [place] [address] Care Team Providers Name Role Phone Unavailable Primary Care Provider Unavailable Encounter Details Date Type Department Care Team Description 04/21/2021 Orders [facility] O f Ernie Guzmán MD [phone] [place] [address] [place], [place] [phone] (Wo rk) Social History Tobacco Use [...] spKt/V 1.53 KAMERON (Daugirdas II) PCR 76.97 KAMEORN nPCR_HD 1.16 KAMERON eKdrt/V 1.39 KAMERON eKt/V 1.33 KAMERON ([place]) eNPCR 1.04 KAMERON spKt/V Gotch 1.60 KAMERON eKt/V Gotch 1.39 KAMERON Specimen (Source) Anatomical Location Collection Method / Collectio n Time Received Time / Laterality Volume 04/21/2021 04/21/2021 Kameron Ordering Provider LAB BLOOD ORDERABLES Performing Organization Address City/[facility]/ZIP Code Phon e Number KAMERON (ABNORMAL) Spectrae Chemistry (04/21/2021) athologist Signature PTH 1,441 (H) 16 - 80 APS SPECTRA pg/mL [facility] Specimen (Source) Anatomical Collection Method Collection Time Re ceived Time Location / / Volume Laterality 04/21/2021 04/22/2021 1:39 PM NURSE CONSULTANT Narrative APS SPECTRA [facility] - 04/23/2021 Unless otherwise specified, test(s) performed at: [facility], [address] [place], [place] [id number] STAGE SET DESIGNER: Alec Payan M.D. For any questions, please call customer service at FREQUENCY:MONTHLY Resulting Agency Comment Specimen source: Plasma Ernie Pompa MD LAB BLOOD ORDERABLES Performing Organization Address [facility] Phon e Number APS SPECTRA [facility] IMMUNO CHEMISTRY (04/21/2021) athologist [facility] Hep B Surface Negative Negative APS SPECTRA Ag [facility] Specimen (Source) Anatomical Collection Method Collection Time Re ceived Time Location / / Volume Laterality 04/21/2021 04/22/2021 3:00 PM NURSE CONSULTANT Narrative APS SPECTRA [facility] - 04/22/2021 Unless otherwise specified, test(s) performed at: [facility], [address] [place] [address] STAGE SET DESIGNER: Alec Payan M.D. For any questions, please call customer service at FREQUENCY:MONTHLY Resulting Agency Comment Specimen source: Serum Ernie Pompa MD LAB BLOOD ORDERABLES Performing Organization Address City/[facility]/ZIP [facility] Phon e Number APS SPECTRA [facility] HD KINETICS (04/21/2021) athologist Signature % Urea 72 65 - 80 % APS SPECTRA Reduction [facility] Specimen (Source) Anatomical Collection Method Collection Time Re ceived Time Location / / Volume Laterality 04/21/2021 04/22/2021 5:02 PM NURSE CONSULTANT Resulting Agency Comment Specimen source: Plasma Ernie Pompa MD LAB BLOOD ORDERABLES Performing Organization Address City/State/ZIP Code Phon e Number APS SPECTRA [facility] POST CHEMISTRY (04/21/2021) P athologist Signature BUN Post 17 6 - 19 APS SPECTRA Dialysis mg/dL [facility] Specimen (Source) Anatomical Collection Method Collection Time Re ceived Time Location / / Volume Laterality 04/21/2021 04/22/2021 5:01 PM NURSE CONSULTANT Narrative APS SPECTRA [facility] - 04/22/2021 Unless otherwise specified, test(s) performed at: [facility], [address] [place] [address] STAGE SET DESIGNER: Alec Payan M.D. For any questions, [...] / Volume Laterality 04/21/2021 04/22/2021 3:00 PM NURSE CONSULTANT Narrative APS SPECTRA [facility] - 04/22/2021 Unless otherwise specified, test(s) performed at: [facility], [address] [place] [address] STAGE SET DESIGNER: Alec Payan M.D. For any questions, [...] / Volume Laterality 04/21/2021 04/22/2021 1:17 PM NURSE CONSULTANT Narrative APS SPECTRA [facility] - 04/22/2021 Unless otherwise specified, test(s) performed at: [facility], [address] [place] [address] STAGE SET DESIGNER: Alec Payan M.D. For any questions, please call customer service at FREQUENCY:MONTHLY Resulting Agency Comment Specimen source: Blood Ernie Pompa MD LAB BLOOD ORDERABLES Performing Organization Address City/State/ZIP Code Phon e Number APS SPECTRA [facility] documented in this encounter Visit Diagnoses Not on filedocumented in this encounter
--- OUTSIDE RECORDS SUMMARY | 2022-02-24 13:25 | XMS_ITS | Encounter Summary ---
:1945 Author Organization [facility] Address [address] [place] [address] Care Team Providers Name Role Phone Unavailable Primary Care Provider Unavailable Encounter Details Date Type Department Care Team Description 04/07/2021 Orders [facility] f Ernie Guzmán MD [address] [place] [address] [place], [place] [phone] (Wo rk) Social History Tobacco Use [...] Volume Laterality 04/07/2021 04/09/2021 11:4 3 AM LINOLEUM PRINTER Narrative APS SPECTRA [facility] - 04/09/2021 Unless otherwise specified, test(s) performed at: [facility], [address] [place] [address] FACILITIES AND GROUNDS DIRECTOR: Alec Payan M.D. For any questions, please call customer service at FREQUENCY:OTHER Resulting Agency Comment Specimen source: Blood Ernie Pompa MD LAB BLOOD ORDERABLES Performing Organization Address City/State/ZIP Code Phon e Number APS SPECTRA [facility] documented in this encounter Visit Diagnoses Not on filedocumented in this encounter
--- OUTSIDE RECORDS SUMMARY | 2022-02-24 13:25 | XMS_ITS | Encounter Summary ---
:1945 Author Organization [facility] Address [address] [place] [address] Care Team Providers Name Role Phone Unavailable Primary Care Provider Unavailable Encounter Details Date Type Department Care Team Description 06/09/2021 Treatment [facility] O f Ernie Guzmán MD [address] [place] [address] [place], [place] [phone] [phone] (Wo rk) Social History Tobacco Use Types Packs/Day Years Used Date Smoking Tobacco: Unknown Comments: Smoking History Info:Patient n ot screened Sex Assigned at Date Recorded Not on file documented as of this encounter Miscellaneous Notes Dialysis Note - Ernie Pompa MD - 06/09/2021 10:34 AM CDT Date: Jun 09, 2021 Patient Name: Shaun Ocampo : 1945 Chart #: [id number] Sex: M This patient was personally seen [...] AM ) BP (sit): 115/55 AP(-) / UPSTAIRS MAID: 161/150 Pulse: 67 Chairside data as of [...] mcg IVP Every 2 weeks 06/09/2021 06/08/2022 LENS INSPECTOR: Ernie Pompa MD LOCATION: [phone] SCHEDULE: -- 2nd Shift ACCESS: EDW: kg. [...] improving. Fluid gains continue to be high, [facility] not open on this week, says he will do his best withlimiting salt/fluid. HE does feel SOB with exertion with extra fluid on, no orthopnea. 05/26/21: Has SOB when >5 Kg over dry weight, extra run last week at [facility] helped. Trying his best with fluid restriction. [...] extra run and we discussed going to [facility] tomorrow for UF only run and he [...] again today, may need extra run at [facility] if can't get down over next week. 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 06/10: Doing well overall, no new complaints, [...] Went to Urgent care -> ER in [place] yesterday,CT with R hydro but no obstructive [...] (05/05/21) Vascular Access Assessment: Type of access: [id number] Surgeon - Lary GARDNER Access working well [...]
--- OUTSIDE RECORDS SUMMARY | 2022-02-24 13:25 | XMS_ITS | Encounter Summary ---
:1945 Author Organization [facility] Address [address] [place] [address] [address] [place] [address] Care Team Providers Name Role Phone Unavailable Primary Care Provider Unavailable Encounter Details Date Type Department Care Team Description 05/21/2021 Orders [facility] O f Ernie Guzmán MD [phone] [place] [address] [place], [place] [phone] (Wo rk) Social History Tobacco Use [...] / Volume Laterality 05/21/2021 05/22/2021 1:14 PM DIE ASSEMBLER Resulting Agency Comment Specimen source: Serum Ernie Pompa MD LAB BLOOD ORDERABLES Performing Organization Address City/State/ZIP Code Phon e Number APS SPECTRA [facility] POST CHEMISTRY (05/21/2021) athologist Signature BUN Post 12 6 - 19 APS SPECTRA Dialysis mg/dL [facility] Specimen (Source) Anatomical Collection Method Collection Time Re ceived Time Location / / Volume Laterality 05/21/2021 05/22/2021 11:5 6 AM DIE ASSEMBLER Narrative APS SPECTRA [facility] - 05/22/2021 Unless otherwise specified, test(s) performed at: [facility], [address] [place] [address] DUMPMAN: Alec Payan M.D. For any questions, please [...] / Volume Laterality 05/21/2021 05/22/2021 1:14 PM DIE ASSEMBLER Narrative APS SPECTRA [facility] - 05/22/2021 Unless otherwise specified, test(s) performed at: [facility], [address] [place] [address] DUMPMAN: Alec Payan M.D. For any questions, please call customer service at FREQUENCY:OTHER Resulting Agency Comment Specimen source: Serum Ernie Pompa MD LAB BLOOD ORDERABLES Performing Organization Address City/State/ZIP Code Phon e Number APS SPECTRA [facility] documented in this encounter Visit Diagnoses Not on filedocumented in this encounter
--- OUTSIDE RECORDS SUMMARY | 2022-02-24 13:25 | XMS_ITS | Encounter Summary ---
:1945 Author Organization [facility] Address [address] [place] [address] Care Team Providers Name Role Phone Unavailable Primary Care Provider Unavailable Encounter Details Date Type Department Care Team Description 05/26/2021 Orders [facility] O f Ernie Guzmán MD [address] [place] [address] [place], [place] [phone] (Wo rk) Social History Tobacco Use [...] / Volume Laterality 05/26/2021 05/27/2021 6:19 PM CONTROL SYSTEMS DRAFTING OFFICER Narrative APS SPECTRA [facility] - 05/28/2021 Unless otherwise specified, test(s) performed at: [facility], [address] [place], [place] [id number] INDUSTRIAL MACHINERY MECHANIC: Alec Payan M.D. For any questions, [...] Volume Laterality 05/26/2021 05/27/2021 10:2 3 AM CONTROL SYSTEMS DRAFTING OFFICER Narrative APS SPECTRA [facility] - 05/27/2021 Unless otherwise specified, test(s) performed at: [facility], [address] [place], [place] [id number] INDUSTRIAL MACHINERY MECHANIC: Alec Payan M.D. For any questions, [...] Volume Laterality 05/26/2021 05/27/2021 10:1 9 AM CONTROL SYSTEMS DRAFTING OFFICER Narrative APS SPECTRA [facility] - 05/27/2021 Unless otherwise specified, test(s) performed at: [facility], [address] [place], [place] [id number] INDUSTRIAL MACHINERY MECHANIC: Alec Payan M.D. For any questions, please call customer service at FREQUENCY:OTHER Resulting Agency Comment Specimen source: Blood Ernie Pompa MD LAB BLOOD ORDERABLES Performing Organization Address City/State/ZIP Code Phon e Number APS SPECTRA [facility] documented in this encounter Visit Diagnoses Not on filedocumented in this encounter
--- OUTSIDE RECORDS SUMMARY | 2022-02-24 13:25 | XMS_ITS | Encounter Summary ---
:1945 Author Organization [facility] Address [address] [place] [address] Care Team Providers Name Role Phone Unavailable Primary Care Provider Unavailable Encounter Details Date Type Department Care Team Description 05/19/2021 Orders [facility] O f Ernie Guzmán MD [address] [place] [address] [place], [place] [phone] (Wo rk) Social History Tobacco Use [...] Provider LAB BLOOD ORDERABLES Performing Organization Address [facility] Phon e Number KAMERON IMMUNO CHEMISTRY (05/19/2021) P athologist Signature Hep B Surface Negative Negative APS SPECTRA Ag [facility] Specimen (Source) Anatomical Collection Method Collection Time Re ceived Time Location / / Volume Laterality 05/19/2021 05/20/2021 3:10 PM BULL LADLE TENDER Narrative APS SPECTRA [facility] - 05/20/2021 Unless otherwise specified, test(s) performed at: [facility], [address] [place], [place] [address] PAPETERIE TABLE ASSEMBLER: Alec Payan M.D. For any questions, please call customer service at FREQUENCY:MONTHLY Resulting Agency Comment Specimen source: Serum Ernie Pompa MD LAB BLOOD ORDERABLES Performing Organization Address [facility] Phon e Number APS SPECTRA [facility] HD KINETICS (05/19/2021) P athologist Signature % Urea 69 65 - 80 % APS SPECTRA Reduction [facility] Specimen (Source) Anatomical Collection Method Collection Time Re ceived Time Location / / Volume Laterality 05/19/2021 05/20/2021 3:12 PM BULL LADLE TENDER Narrative APS SPECTRA [facility] - 05/20/2021 Unless otherwise specified, test(s) performed at: [facility], [address] [place] [address] PAPETERIE TABLE ASSEMBLER: Alec Payan M.D. For any questions, please call customer service at FREQUENCY:MONTHLY Resulting Agency Comment Specimen source: Serum Erine Pompa MD LAB BLOOD ORDERABLES Performing Organization Address [facility] Phon e Number [...] / Volume Laterality 05/19/2021 05/20/2021 3:10 PM BULL LADLE TENDER Narrative APS SPECTRA [facility] - 05/20/2021 Unless otherwise specified, test(s) performed at: [facility], [address] [place] [address] PAPETERIE TABLE ASSEMBLER: Alec Payan M.D. For any questions, [...] / Volume Laterality 05/19/2021 05/20/2021 2:08 PM BULL LADLE TENDER Narrative APS SPECTRA [facility] - 05/20/2021 Unless otherwise specified, test(s) performed at: [facility], [address] [place] [address] PAPETERIE TABLE ASSEMBLER: Alec Payan M.D. For any questions, [...] Volume Laterality 05/19/2021 05/20/2021 12:5 8 PM BULL LADLE TENDER Narrative APS SPECTRA [facility] - 05/20/2021 Unless otherwise specified, test(s) performed at: [facility], [address] [place] [address] PAPETERIE TABLE ASSEMBLER: Alec Payan M.D. For any questions, please call customer service at FREQUENCY:MONTHLY Resulting Agency Comment Specimen source: Blood Ernie Pompa MD LAB BLOOD ORDERABLES Performing Organization Address City/State/ZIP Code Phon e Number APS SPECTRA [facility] documented in this encounter Visit Diagnoses Not on filedocumented in this encounter
--- OUTSIDE RECORDS SUMMARY | 2022-02-24 13:25 | XMS_ITS | Encounter Summary ---
:1945 Author Organization [facility] Address [address] [place] [address] Care Team Providers Name Role Phone Unavailable Primary Care Provider Unavailable Encounter Details Date Type Department Care Team Description 04/28/2021 Orders [facility] O f Ernie Guzmán MD [address] [place] [address] [phone] (Wo rk) Social History Tobacco Use [...] Volume Laterality 04/28/2021 04/29/2021 12:1 6 PM DEHYDROGENATION CONVERTER HELPER Narrative APS SPECTRA [facility] - 04/29/2021 Unless otherwise specified, test(s) performed at: [facility], [address] [place] [address] GUN FERTILIZER: Alec Payan M.D. For any questions, please call customer service at FREQUENCY:OTHER Resulting Agency Comment Specimen source: Blood Ernie Pompa MD LAB BLOOD ORDERABLES Performing Organization Address City/State/ZIP Code Phon e Number APS SPECTRA [facility] documented in this encounter Visit Diagnoses Not on filedocumented in this encounter
--- OUTSIDE RECORDS SUMMARY | 2022-02-24 13:25 | XMS_ITS | Encounter Summary ---
:1945 Author Organization [facility] Address [address] [place] [address] Care Team Providers Name Role Phone Unavailable Primary Care Provider Unavailable Encounter Details Date Type Department Care Team Description 05/05/2021 Treatment [facility] f Ernie Guzmán MD [address] [place] [address] [place], [place] [address] [phone] (Wo rk) Social History Tobacco Use Types Packs/Day Years Used Date Smoking Tobacco: Unknown Comments: Smoking History Info:Patient n ot screened Sex Assigned at Date Recorded Not on file documented as of this encounter Miscellaneous Notes Dialysis Note - Ernie Pompa MD - 05/05/2021 10:18 AM CST Date: May 05, 2021 Patient Name: Shaun Ocampo : 1945 Chart #: [id number] Sex: M This patient was personally seen [...] AM ) BP (sit): 110/50 AP(-) / MULT AU MATIC OPERATOR: 174/144 Pulse: 73 Chairside data as [...] mcg IVP Every 2 weeks 04/28/2021 04/27/2022 MOTORS AND CONTROLS TESTER: Ernie Pompa MD LOCATION: [phone] SCHEDULE: M-W-F 2nd Shift ACCESS: EDW: kg. [...] extra run and we discussed going to [facility] tomorrow for UF only run and he [...] again today, may need extra run at [facility] if can't get down over next week. 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 06/10: Doing well overall, no new complaints, [...] Went to Urgent care -> ER in [place] yesterday,CT with R hydro but no obstructive [...] He had infiltration last week, dialyzed at [facility] on Sat and went well, access [...] (03/24/21) Vascular Access Assessment: Type of access: [id number] Surgeon - Lary GARDNER Access working well [...]
--- OUTSIDE RECORDS SUMMARY | 2022-02-24 13:25 | XMS_ITS | Encounter Summary ---
:1945 Author Organization [facility] Address [address] [place] [address] Care Team Providers Name Role Phone Unavailable Primary Care Provider Unavailable Encounter Details Date Type Department Care Team Description 04/21/2021 Treatment [facility] O f Ernie Guzmán MD [address] [place] [address] [place], [place] [phone] [phone] (Wo rk) Social History Tobacco Use Types Packs/Day Years Used Date Smoking Tobacco: Unknown Comments: Smoking History Info:Patient n ot screened Sex Assigned at Date Recorded Not on file documented as of this encounter Miscellaneous Notes Dialysis Note - Ernie Pompa MD - 04/21/2021 8:58 AM CST Date: Apr 21, 2021 Patient Name: Shaun Ocampo : 1945 Chart #: [id number] Sex: M This patient was personally seen [...] AM ) BP (sit): 113/62 AP(-) / THREAD CHECKER: 176/155 Pulse: 78 Chairside data as of [...] 50 mg IVP 1X Week 04/12/2021 04/11/2022 HUNTING GUIDE: Ernie Pompa MD LOCATION: [phone] SCHEDULE: M-W-F 2nd Shift EDW: kg. DIALYZER: [...] extra run and we discussed going to [facility] tomorrow for UF only run and he [...] again today, may need extra run at [facility] if can't get down over next week. [...] Went to Urgent care -> ER in [place] yesterday,CT with R hydro but no obstructive [...] He had infiltration last week, dialyzed at [facility] on Sat and went well, [...] prescription. Vascular Access Assessment Type of access: [id number] Surgeon - Lary GARDNER Access working well [...] at goal. Intact PTH is above goal. Paraplanner will adjust binders and vitamin D per [...]
--- OUTSIDE RECORDS SUMMARY | 2022-02-24 13:25 | XMS_ITS | Encounter Summary ---
:1945 Author Organization [facility] Address [address] [place] [address] Care Team Providers Name Role Phone Unavailable Primary Care Provider Unavailable Encounter Details Date Type Department Care Team Description 06/09/2021 [facility] O f Ernie Guzmán MD [phone] [place] [address] [place], [place] [phone] (Wo rk) Social History Tobacco Use [...] 06/10/2021 Unless otherwise specified, test(s) performed at: [facility], [address] [place] [address] PATTERN PAINTER: Alec Payan M.D. For any questions, please call customer service at FREQUENCY:OTHER Resulting Agency Comment Specimen source: Blood Ernie Pompa MD LAB BLOOD ORDERABLES Performing Organization Address City/State/ZIP Code Phon e Number [facility] documented in this encounter Visit Diagnoses Not on filedocumented in this encounter
--- OUTSIDE RECORDS SUMMARY | 2022-02-24 13:25 | XMS_ITS | Encounter Summary ---
:1945 Author Organization [facility] Address [address] [place] [address] Care Team Providers Name Role Phone Unavailable Primary Care Provider Unavailable Encounter Details Date Type Department Care Team Description 05/12/2021 [facility] O f Ernie Guzmán MD [phone] [place] [address] [place], [place] [phone] (Wo rk) Social History Tobacco Use [...] / Volume Laterality 05/12/2021 05/13/2021 1:22 PM ASSOCIATE PROPERTY MANAGER Narrative [facility] - 05/13/2021 Unless otherwise specified, test(s) performed at: [facility], [address] [place] [address] RETURNING OFFICER: Alec Payan M.D. For any questions, please call customer service at FREQUENCY:OTHER Resulting Agency Comment Specimen source: Blood Ernie Pompa MD LAB BLOOD ORDERABLES Performing Organization Address City/State/ZIP Code Phon e Number [facility] documented in this encounter Visit Diagnoses Not on filedocumented in this encounter
--- OUTSIDE RECORDS SUMMARY | 2022-02-24 13:25 | XMS_ITS | Encounter Summary ---
:1945 Author Organization [facility] Address [address] [place] [address] Care Team Providers Name Role Phone Unavailable Primary Care Provider Unavailable Encounter Details Date Type Department Care Team Description 04/14/2021 [facility] O f Ernie Guzmán MD [phone] [place] [address] [place], [place] [phone] (Wo rk) Social History Tobacco Use [...] Volume Laterality 04/14/2021 04/15/2021 10:0 0 AM HEALTHCARE SOCIAL WORKER Narrative [facility] - 04/15/2021 Unless otherwise specified, test(s) performed at: [facility], [address] [place] [address] STONE LATHE OPERATOR: Alec Payan M.D. For any questions, please call customer service at FREQUENCY:OTHER Resulting Agency Comment Specimen source: Blood Ernie Pompa MD LAB BLOOD ORDERABLES Performing Organization Address City/State/ZIP Code Phon e Number [facility] documented in this encounter Visit Diagnoses Not on filedocumented in this encounter
--- OUTSIDE RECORDS SUMMARY | 2022-02-24 13:25 | XMS_ITS | Encounter Summary ---
:1945 Author Organization [facility] Address [address] [place] [address] Care Team Providers Name Role Phone Unavailable Primary Care Provider Unavailable Encounter Details Date Type Department Care Team Description 05/26/2021 Treatment [facility] f Ernie Guzmán MD [address] [place] [address] [place], [place] [phone] [phone] (Wo rk) Social History Tobacco Use Types Packs/Day Years Used Date Smoking Tobacco: Unknown Comments: Smoking History Info:Patient n ot screened Sex Assigned at Date Recorded Not on file documented as of this encounter Miscellaneous Notes Dialysis Note - Ernie Pompa MD - 05/26/2021 10:14 AM CST Date: May 26, 2021 Patient Name: Shaun Ocampo : 1945 Chart #: [id number] Sex: M This patient was personally seen [...] AM ) BP (sit): 117/59 AP(-) / ENTERTAINER OR VARIETY ARTIST: 176/154 Pulse: 78 Chairside data as of [...] mcg IVP Every 2 weeks 05/26/2021 05/25/2022 OUTFITTER CABIN: Ernie Pompa MD LOCATION: [facility] [phone] SCHEDULE: -- 2nd Shift EDW: kg. DIALYZER: HD DURATION: NEEDLE SIZE: ANTICOAG: BATH: QB: ml/min QD: ml/min Subjective Tolerating dialysis well. 05/26/21: Has SOB when >5 Kg over dry weight, extra run last week at [place] helped. Trying his best with fluid restriction. [...] well. He had extra run prior to [facility] and ran WThF that [...] extra run and we discussed going to [place] tomorrow for UF only run and he [...] again today, may need extra run at [place] if can't get down over next week. 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 06/10: Doing well overall, no new complaints, [...] Went to Urgent care -> ER in [place] yesterday,CT with R hydro but no obstructive [...] He had infiltration last week, dialyzed at [facility] on Sat and went well, access [...] prescription. Vascular Access Assessment Type of access: [id number] Surgeon - Lary KUMARW Access working well [...] at goal. Intact PTH is above goal. Blind Installer will adjust binders and vitamin D [...] as tolerated, may need extra run at [place] again if can't achieve dry weight Continue [...]
--- OUTSIDE RECORDS SUMMARY | 2022-02-24 13:25 | XMS_ITS | Encounter Summary ---
:1945 Author Organization [facility] Address [address] [place] [address] Care Team Providers Name Role Phone Unavailable Primary Care Provider Unavailable Encounter Details Date Type Department Care Team Description 05/17/2021 [facility] O f Ernie Guzmán MD [phone] [place] [address] [place], [place] [phone] (Wo rk) Social History Tobacco Use [...] / Volume Laterality 05/17/2021 05/18/2021 1:48 PM POLITICAL WORKER Narrative [facility] - 05/18/2021 Unless otherwise specified, test(s) performed at: [facility], [address] [place] [address] CITY ENGINEER: Alec Payan M.D. For any questions, [...] Volume Laterality 05/17/2021 05/18/2021 11:1 2 AM POLITICAL WORKER Narrative [facility] - 05/18/2021 Unless otherwise specified, test(s) performed at: [facility], [address] [place] [address] CITY ENGINEER: Alec Payan M.D. For any questions, please call customer service at FREQUENCY:OTHER Resulting Agency Comment Specimen source: Serum Ernie Pompa MD LAB BLOOD ORDERABLES Performing Organization Address City/[facility]/ZIP Code Phon e Number [facility] documented in this encounter Visit Diagnoses Not on filedocumented in this encounter
--- OUTSIDE RECORDS SUMMARY | 2022-02-24 13:25 | XMS_ITS | Encounter Summary ---
:1945 Author Organization [facility] Address [address] [place] [address] Care Team Providers Name Role Phone Unavailable Primary Care Provider Unavailable Encounter Details Date Type Department Care Team Description 06/02/2021 [facility] O f Ernie Guzmán MD [phone] [place] [address] [place], [place] [phone] (Wo rk) Social History Tobacco Use [...] 06/03/2021 Unless otherwise specified, test(s) performed at: [facility], [address] [place] [address] ROLLER PRINTER: Alec Payan M.D. For any questions, please call customer service at FREQUENCY:OTHER Resulting Agency Comment Specimen source: Blood Ernie Pompa MD LAB BLOOD ORDERABLES Performing Organization Address City/State/ZIP Code Phon e Number [facility] documented in this encounter Visit Diagnoses Not on filedocumented in this encounter
--- OUTSIDE RECORDS SUMMARY | 2022-02-24 13:26 | XMS_ITS | Encounter Summary ---
:1945 Author Organization [facility] Address [address] [place] [address] Care Team Providers Name Role Phone Unavailable Primary Care Provider Unavailable Encounter Details Date Type Department Care Team Description 02/24/2021 [facility] O f Ernie Guzmán MD [address] [place] [address] [place], [place] [phone] (Wo rk) Social History Tobacco Use [...] / Volume Laterality 02/24/2021 02/25/2021 6:54 PM GREEN CHAIN WORKER Narrative [facility] - 02/26/2021 Unless otherwise specified, test(s) performed at: [facility], [address] [place] [address] FIRE CREW SPECIALIST: Alec Payan M.D. For any questions, please call customer service at FREQUENCY:OTHER Resulting Agency Comment Specimen source: Serum Ernie Pompa MD LAB BLOOD ORDERABLES Performing Organization Address City/[facility]/ZIP Code Phon e Number [facility] (ABNORMAL) HEMATOLOGY (02/24/2021) Analysis Performed At Patho logist Time Signature Hemoglobin 10.2 (L) 14.0 - [facility] 18.0 g/dL [facility] Hemoglobin x 3 30.6 (L) 42.0 - [facility] 54.0 % [facility] Specimen (Source) Anatomical Collection Method Collection Time Re ceived Time Location / / Volume Laterality 02/24/2021 02/25/2021 10:2 3 AM GREEN CHAIN WORKER Narrative [facility] - 02/25/2021 Unless otherwise specified, test(s) performed at: [facility], [address] [place] [address] FIRE CREW SPECIALIST: Alec Payan M.D. For any questions, please call customer service at FREQUENCY:OTHER Resulting Agency Comment Specimen source: Blood Ernie Pompa MD LAB BLOOD ORDERABLES Performing Organization Address City/[facility] Phon e Number [facility] documented in this encounter Visit Diagnoses Not on filedocumented in this encounter
--- OUTSIDE RECORDS SUMMARY | 2022-02-24 13:26 | XMS_ITS | Encounter Summary ---
:1945 Author Organization [facility] Address [address] [place] [address] Care Team Providers Name Role Phone Unavailable Primary Care Provider Unavailable Encounter Details Date Type Department Care Team Description 03/10/2021 Treatment [facility] O Ernie Gómez MD [address] [place] [address] [place], [place] [phone] [phone] (Wo rk) Social History Tobacco Use Types Packs/Day Years Used Date Smoking Tobacco: Unknown Comments: Smoking History Info:Patient n ot screened Sex Assigned at Date Recorded Not on file documented as of this encounter Miscellaneous Notes Dialysis Note - Ernie Pompa MD - 03/10/2021 9:40 AM CST Date: Mar 10, 2021 Patient Name: Shaun Ocampo : 1945 Chart #: [id number] Sex: M This patient was personally seen [...] AM ) BP (sit): 116/55 AP(-) / INSPECTOR MATERIALS AND PROCESSES: 171/146 Pulse: 70 Chairside data as of [...] 0.25 mcg ORAL Every Treatment 03/08/2021 03/07/2022 JET MECHANIC: Ernie Pompa MD LOCATION: [phone] SCHEDULE: -W-F 2nd Shift ACCESS: EDW: kg. DIALYZER: HD DURATION: NEEDLE SIZE: ANTICOAG: BATH: QB: ml/min QD: ml/min Subjective Tolerating dialysis well. 03/10/21: He has been marching in place and increasing duration to try and gain endurance, feels this is helping. Fluid gains continue to be high, no chance of reaching EDW this week without an extra run and we discussed going to [place] tomorrow for UF only run and he [...] again today, may need extra run at [facility] if can't get down over next week. 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 06/10: Doing well overall, no new complaints, [...] (12/23/20) Vascular Access Assessment: Type of access: [id number] Surgeon - Lary GARDNER Access working well [...]
--- OUTSIDE RECORDS SUMMARY | 2022-02-24 13:26 | XMS_ITS | Encounter Summary ---
:1945 Author Organization [facility] Address [address] [place] [address] Care Team Providers Name Role Phone Unavailable Primary Care Provider Unavailable Encounter Details Date Type Department Care Team Description 01/06/2021 Orders Only [facility] O f Ernie Guzmán MD [address] [place] [address] [place], [place] [phone] (Wo rk) Social History Tobacco Use [...] 01/07/2021 Unless otherwise specified, test(s) performed at: [facility], [address] [place] [address] FINISHED METAL REPAIRER: Alec Payan M.D. For any questions, please call customer service at FREQUENCY:OTHER Resulting Agency Comment Specimen source: Blood Ernie Pompa MD LAB BLOOD ORDERABLES Performing Organization Address City/State/ZIP Code Phon e Number [facility] documented in this encounter Visit Diagnoses Not on filedocumented in this encounter
--- OUTSIDE RECORDS SUMMARY | 2022-02-24 13:26 | XMS_ITS | Encounter Summary ---
:1945 Author Organization [facility] Address [address] [place] [address] Care Team Providers Name Role Phone Unavailable Primary Care Provider Unavailable Encounter Details Date Type Department Care Team Description 01/20/2021 Orders Only [facility] O f Ernie Guzmán MD [address] [place] [address] [place], [place] [phone] (Wo rk) Social History Tobacco Use [...] 01/22/2021 Unless otherwise specified, test(s) performed at: [facility], [address] [place] [address] ALLIGATOR TRAPPER: Alec Payan M.D. For any questions, please [...] 01/22/2021 Unless otherwise specified, test(s) performed at: [facility], [address] [place] [address] ALLIGATOR TRAPPER: Alec Payan M.D. For any questions, please call customer service at FREQUENCY:MONTHLY Resulting Agency Comment Specimen source: Serum Ernie Pompa MD LAB BLOOD ORDERABLES Performing Organization Address City/[facility] Phon e Number [facility] IMMUNO CHEMISTRY (01/20/2021) P athologist Signature Hep B Surface Negative Negative [facility] Ag [facility] Specimen (Source) Anatomical Collection Method Collection Time Re ceived Time Location / / Volume Laterality 01/20/2021 01/21/2021 8:41 PM CDT Narrative [facility] - 01/21/2021 Unless otherwise specified, test(s) performed at: [facility], [address] [place] [address] ALLIGATOR TRAPPER: Alec Payan M.D. For any questions, please call customer service at FREQUENCY:MONTHLY Resulting Agency Comment Specimen source: Serum Ernie Pompa MD LAB BLOOD ORDERABLES Performing Organization Address City/[facility] Phon e Number [facility] POST CHEMISTRY (01/20/2021) P athologist Signature BUN Post 11 6 - 19 [facility] Dialysis mg/dL [facility] Specimen (Source) Anatomical Collection Method Collection Time Re ceived Time Location / / Volume Laterality 01/20/2021 01/21/2021 10:5 1 AM CDT Narrative [facility] - 01/21/2021 Unless otherwise specified, test(s) performed at: [facility], [address] [place] [address] ALLIGATOR TRAPPER: Alec Payan M.D. For any questions, please [...] 01/21/2021 Unless otherwise specified, test(s) performed at: [facility], [address] [place] [address] ALLIGATOR TRAPPER: Alec Payan M.D. For any questions, please [...] 01/21/2021 Unless otherwise specified, test(s) performed at: [facility], [address] [place] [address] ALLIGATOR TRAPPER: Alec Payan M.D. For any questions, please call customer service at FREQUENCY:MONTHLY Resulting Agency Comment Specimen source: Plasma Ernie Pompa MD LAB BLOOD ORDERABLES Performing Organization Address City/State/ZIP Code Phon e Number [facility] documented in this encounter Visit Diagnoses Not on filedocumented in this encounter
--- OUTSIDE RECORDS SUMMARY | 2022-02-24 13:26 | XMS_ITS | Encounter Summary ---
:1945 Author Organization [facility] Address [address] [place] [address] Care Team Providers Name Role Phone Unavailable Primary Care Provider Unavailable Encounter Details Date Type Department Care Team Description 02/03/2021 Treatment [facility] O Ernie Gómez MD [address] [place] [address] [place], [place] [phone] (Wo rk) Social History Tobacco Use Types Packs/Day Years Used Date Smoking Tobacco: Unknown Comments: Smoking History Info:Patient n ot screened Sex Assigned at Date Recorded Not on file documented as of this encounter Miscellaneous Notes Dialysis Note - Ernie Pompa MD - 02/03/2021 11:33 AM CST Date: Feb 03, 2021 Patient Name: Shaun Ocampo : 1945 Chart #: [id number] Sex: M This patient was personally seen [...] 2.0 mcg ORAL Every Treatment 12/30/2020 12/29/2021 CULINARY SPECIALIST: Ernie Pompa MD LOCATION: [facility] [phone] SCHEDULE: M-W- 2nd Shift ACCESS: EDW: kg. 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 06/10: Doing well overall, no new complaints, [...] Went to Urgent care -> ER in [place] yesterday,CT with R hydro but no obstructive [...] (11/18/20) Vascular Access Assessment: Type of access: [id number] Surgeon - Lary GARDNER Access working well [...]
--- OUTSIDE RECORDS SUMMARY | 2022-02-24 13:26 | XMS_ITS | Encounter Summary ---
:1945 Author Organization [facility] Address [address] [place] [address] Care Team Providers Name Role Phone Unavailable Primary Care Provider Unavailable Encounter Details Date Type Department Care Team Description 12/30/2020 Orders [facility] O f Ernie Guzmán MD [phone] [place] [address] [place], [place] [phone] (Wo rk) Social History Tobacco Use [...] 12/31/2020 Unless otherwise specified, test(s) performed at: [facility], [address] [place] [address] CONFECTIONERY LABORATORY MANAGER: Alec Payan M.D. For any questions, please call customer service at FREQUENCY:OTHER Resulting Agency Comment Specimen source: Blood Ernie Pompa MD LAB BLOOD ORDERABLES Performing Organization Address City/State/ZIP Code Phon e Number [facility] documented in this encounter Visit Diagnoses Not on filedocumented in this encounter
--- OUTSIDE RECORDS SUMMARY | 2022-02-24 13:26 | XMS_ITS | Encounter Summary ---
:1945 Author Organization [facility] Address [address] [place] [address] Care Team Providers Name Role Phone Unavailable Primary Care Provider Unavailable Encounter Details Date Type Department Care Team Description 02/17/2021 Orders Only [facility] O f Ernie Guzmán MD [address] [place] [address] [place], [place] [phone] (Wo rk) Social History Tobacco Use [...] / Volume Laterality 02/17/2021 02/18/2021 4:14 PM RUG RENOVATOR Resulting Agency Comment Specimen source: Serum Ernie Pompa MD LAB BLOOD ORDERABLES Performing Organization Address City/[facility]/ZIP Code Phon e Number [facility] POST CHEMISTRY (02/17/2021) P athologist Signature BUN Post 13 6 - 19 [facility] Dialysis mg/dL [facility] Specimen (Source) Anatomical Collection Method Collection Time Re ceived Time Location / / Volume Laterality 02/17/2021 02/18/2021 4:00 PM RUG RENOVATOR Narrative [facility] - 02/19/2021 Unless otherwise specified, test(s) performed at: [facility], [address] [place] [address] FIELD SALES TRAINER: Alec Payan M.D. For any questions, please call customer service at FREQUENCY:MONTHLY Resulting Agency Comment Specimen source: Plasma Ernie Pompa MD LAB BLOOD ORDERABLES Performing Organization Address City/[facility] Code Phon e Number [facility] IMMUNO CHEMISTRY (02/17/2021) P athologist Signature Hep B Surface Negative Negative [facility] Ag [facility] Specimen (Source) Anatomical Collection Method Collection Time Re ceived Time Location / / Volume Laterality 02/17/2021 02/18/2021 4:08 PM RUG RENOVATOR Narrative [facility] - 02/18/2021 Unless otherwise specified, test(s) performed at: [facility], [address] [place] [address] FIELD SALES TRAINER: Alec Payan M.D. For any questions, please call customer service at FREQUENCY:MONTHLY Resulting Agency Comment Specimen source: Serum Ernie Pompa MD LAB BLOOD ORDERABLES Performing Organization Address City/State/ZIP Code Phon e Number [facility] (ABNORMAL) Spectrae Chemistry (02/17/2021) [facility] Method Time Signature BUN 46 (H) [...] / Volume Laterality 02/17/2021 02/18/2021 4:08 PM RUG RENOVATOR Narrative [facility] - 02/18/2021 Unless otherwise specified, test(s) performed at: [facility], [address] [place] [address] FIELD SALES TRAINER: Alec Payan M.D. For any questions, please call customer service at FREQUENCY:MONTHLY Resulting Agency Comment Specimen source: Serum Ernie Pompa MD LAB BLOOD ORDERABLES Performing Organization Address City/[facility] Code Phon e Number [facility]PS SPECTRA [...] / Volume Laterality 02/17/2021 02/18/2021 9:53 AM RUG RENOVATOR Narrative [facility] - 02/18/2021 Unless otherwise specified, test(s) performed at: [facility], [address] [place] [address] FIELD SALES TRAINER: Alec Payan M.D. For any questions, please call customer service at FREQUENCY:MONTHLY Resulting Agency Comment Specimen source: Blood Ernie Pompa MD LAB BLOOD ORDERABLES Performing Organization Address City/[facility]/ZIP [facility] Phon e Number [facility] (ABNORMAL) Spectrae Chemistry (02/17/2021) P athologist Signature PTH 546 (H) 16 - 80 [facility] pg/mL [facility] Specimen (Source) Anatomical Collection Method Collection Time Re ceived Time Location / / Volume Laterality 02/17/2021 02/18/2021 10:3 2 AM RUG RENOVATOR Narrative [facility] - 02/18/2021 Unless otherwise specified, test(s) performed at: [facility], [address] [place] [address] FIELD SALES TRAINER: Alec Payan M.D. For any questions, please call customer service at FREQUENCY:MONTHLY Resulting Agency Comment Specimen source: Plasma Ernie Pompa MD LAB BLOOD ORDERABLES Performing Organization Address City/State/ZIP Code Phon e Number [facility] documented in this encounter Visit Diagnoses Not on filedocumented in this encounter
--- OUTSIDE RECORDS SUMMARY | 2022-02-24 13:26 | XMS_ITS | Encounter Summary ---
:1945 Author Organization [facility] Address [address] [place] [address] Care Team Providers Name Role Phone Unavailable Primary Care Provider Unavailable Encounter Details Date Type Department Care Team Description 03/03/2021 Orders Only [facility] O f Ernie Guzmán MD [phone] [place] [address] [place], [place] [phone] (Wo rk) Social History Tobacco Use [...] / Volume Laterality 03/03/2021 03/04/2021 2:44 PM AUTOMATION TEST ENGINEER Narrative [facility] - 03/05/2021 Unless otherwise specified, test(s) performed at: [facility], [address] [place] [address] DIRECTOR AMBULATORY: Alec Payan M.D. For any questions, please [...] / Volume Laterality 03/03/2021 03/04/2021 1:44 PM AUTOMATION TEST ENGINEER Narrative [facility] - 03/04/2021 Unless otherwise specified, test(s) performed at: [facility], [address] [place] [address] DIRECTOR AMBULATORY: Alec Payan M.D. For any questions, please call customer service at FREQUENCY:OTHER Resulting Agency Comment Specimen source: Blood Ernie Pompa MD LAB BLOOD ORDERABLES Performing Organization Address City/[facility] Phon e Number [facility] documented in this encounter Visit Diagnoses Not on filedocumented in this encounter
--- OUTSIDE RECORDS SUMMARY | 2022-02-24 13:26 | XMS_ITS | Encounter Summary ---
:1945 Author Organization [facility] Address [address] [place] [address] Care Team Providers Name Role Phone Unavailable Primary Care Provider Unavailable Encounter Details Date Type Department Care Team Description 01/20/2021 Treatment [facility] O Ernie Gómez MD [address] [place] [address] [place], [place] [phone] (Wo rk) Social History Tobacco Use Types Packs/Day Years Used Date Smoking Tobacco: Unknown Comments: Smoking History Info:Patient n ot screened Sex Assigned at Date Recorded Not on file documented as of this encounter Miscellaneous Notes Dialysis Note - Ernie Pompa MD - 01/20/2021 9:46 AM CDT Date: Jan 20, 2021 Patient Name: Shaun Ocampo : 1945 Chart #: [id number] Sex: M This patient was personally seen [...] 2.0 mcg ORAL Every Treatment 12/30/2020 12/29/2021 CIRCULATION TENDER: Ernie Pompa MD LOCATION: [place] [phone] SCHEDULE: -- 2nd Shift EDW: kg. 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 06/10: Doing well overall, no new complaints, [...] Went to Urgent care -> ER in [place] yesterday,CT with R hydro but no obstructive [...] prescription. Vascular Access Assessment Type of access: [id number]/2019 Surgeon Annita KUMARW Access working well Anemia [...] at goal. Intact PTH is at goal. Supply Requirements Officer will adjust binders and vitamin D [...]
--- OUTSIDE RECORDS SUMMARY | 2022-02-24 13:26 | XMS_ITS | Encounter Summary ---
:1945 Author Organization [facility] Address [address] [place] [address] Care Team Providers Name Role Phone Unavailable Primary Care Provider Unavailable Encounter Details Date Type Department Care Team Description 03/17/2021 Orders Only [facility] O f Ernie Guzmán MD [phone] [place] [address] [place], [place] [phone] (Wo rk) Social History Tobacco Use [...] / Volume Laterality 03/17/2021 03/18/2021 9:32 AM ANESTHESIOLOGIST/PHYSICIAN Narrative [facility] - 03/18/2021 Unless otherwise specified, test(s) performed at: [id number], [address] [place] [address] MANAGER OF ORGANIZATIONAL DEVELOPMENT: Alec Payan M.D. For any questions, please call customer service at FREQUENCY:OTHER Resulting Agency Comment Specimen source: Blood Ernie Pompa MD LAB BLOOD ORDERABLES Performing Organization Address City/State/ZIP Code Phon e Number [facility] documented in this encounter Visit Diagnoses Not on filedocumented in this encounter
--- OUTSIDE RECORDS SUMMARY | 2022-02-24 13:26 | XMS_ITS | Encounter Summary ---
:1945 Author Organization [facility] Address [address] [place] [address] Care Team Providers Name Role Phone Unavailable Primary Care Provider Unavailable Encounter Details Date Type Department Care Team Description 12/09/2020 Treatment [facility] f Ernie Guzmán MD [address] [place] [address] [place], [place] [phone] (Wo rk) Social History Tobacco Use Types Packs/Day Years Used Date Smoking Tobacco: Unknown Comments: Smoking History Info:Patient n ot screened Sex Assigned at Date Recorded Not on file documented as of this encounter Miscellaneous Notes Dialysis Note - Ernie Pompa MD - 12/09/2020 10:05 AM CDT Date: Dec 09, 2020 Patient Name: Shaun Ocampo : 1945 Chart #: [id number] Sex: M This patient was personally seen [...] AM ) BP (sit): 134/63 AP(-) / COMMISSIONING MANAGER: 227/186 Pulse: 69 Chairside data as of [...] 09/18/2020 Access Flow 1432 > 2000 1138 CRIMINAL JUSTICE SOCIAL WORKER: Ernie Pompa MD LOCATION: [place] [phone] SCHEDULE: -- 2nd Shift ACCESS: EDW: kg. [...] for ureteral ?tumor early next month in [place]. 06/10: Doing well overall, no new complaints, [...] Went to Urgent care -> ER in [place] yesterday,CT with R hydro but no [...] (09/23/20) Vascular Access Assessment: Type of access: [id number]/2019 Surgeon - Lary GARDNER Access working well [...]
--- OUTSIDE RECORDS SUMMARY | 2022-02-24 13:26 | XMS_ITS | Encounter Summary ---
:1945 Author Organization [facility] Address [address] [place] [address] Care Team Providers Name Role Phone Unavailable Primary Care Provider Unavailable Encounter Details Date Type Department Care Team Description 02/03/2021 Orders Only [facility] O f Ernie Guzmán MD [phone] [place] [address] [place], [place] [phone] (Wo rk) Social History Tobacco Use [...] Volume Laterality 02/03/2021 02/04/2021 11:2 7 AM CASING IN LINE FEEDER Narrative [facility] - 02/04/2021 Unless otherwise specified, test(s) performed at: [facility], [address] [place] [address] LPN MEDICAL ASSISTANT: Alec Payan M.D. For any questions, please call customer service at FREQUENCY:OTHER Resulting Agency Comment Specimen source: Blood Ernie Pompa MD LAB BLOOD ORDERABLES Performing Organization Address City/State/ZIP Code Phon e Number [facility] documented in this encounter Visit Diagnoses Not on filedocumented in this encounter
--- OUTSIDE RECORDS SUMMARY | 2022-02-24 13:26 | XMS_ITS | Encounter Summary ---
:1945 Author Organization [facility] Address [address] [place] [address] Care Team Providers Name Role Phone Unavailable Primary Care Provider Unavailable Encounter Details Date Type Department Care Team Description 02/10/2021 Orders Only [facility] O f Ernie Guzmán MD [phone] [place] [address] [place], [place] [phone] (Wo rk) Social History Tobacco Use [...] / Volume Laterality 02/10/2021 02/12/2021 2:38 PM GARMENT MANUFACTURER Narrative [facility] - 02/12/2021 Unless otherwise specified, test(s) performed at: [facility], [address] [place] [address] TECHNICAL ADVISOR: Alec Payan M.D. For any questions, please call customer service at FREQUENCY:OTHER Resulting Agency Comment Specimen source: Blood Ernie Pompa MD LAB BLOOD ORDERABLES Performing Organization Address City/State/ZIP Code Phon e Number [facility] documented in this encounter Visit Diagnoses Not on filedocumented in this encounter
--- OUTSIDE RECORDS SUMMARY | 2022-02-24 13:26 | XMS_ITS | Encounter Summary ---
:1945 Author Organization [facility] Address [address] [place] [address] Care Team Providers Name Role Phone Unavailable Primary Care Provider Unavailable Encounter Details Date Type Department Care Team Description 12/09/2020 Orders Only [facility] O f Ernie Guzmán MD [phone] [place] [address] [place], [place] [phone] (Wo rk) Social History Tobacco Use [...] 12/10/2020 Unless otherwise specified, test(s) performed at: [facility], [address] [place] [address] SKILLS INSTRUCTOR: Alec Payan M.D. For any questions, please call customer service at FREQUENCY:OTHER Resulting Agency Comment Specimen source: Blood Ernie Pompa MD LAB BLOOD ORDERABLES Performing Organization Address City/State/ZIP Code Phon e Number [facility] documented in this encounter Visit Diagnoses Not on filedocumented in this encounter
--- OUTSIDE RECORDS SUMMARY | 2022-02-24 13:26 | XMS_ITS | Encounter Summary ---
:1945 Author Organization [facility] Address [address] [place] [address] Care Team Providers Name Role Phone Unavailable Primary Care Provider Unavailable Encounter Details Date Type Department Care Team Description 01/13/2021 Orders Only [facility] O f Ernie Guzmán MD [phone] [place] [address] [place], [place] [phone] (Wo rk) Social History Tobacco Use [...] 01/14/2021 Unless otherwise specified, test(s) performed at: [facility], [address] [place] [address] BUTT WELDER: Alec Payan M.D. For any questions, please call customer service at FREQUENCY:OTHER Resulting Agency Comment Specimen source: Blood Ernie Pompa MD LAB BLOOD ORDERABLES Performing Organization Address City/State/ZIP Code Phon e Number [facility] documented in this encounter Visit Diagnoses Not on filedocumented in this encounter
--- OUTSIDE RECORDS SUMMARY | 2022-02-24 13:26 | XMS_ITS | Encounter Summary ---
:1945 Author Organization [facility] Address [address] [place] [address] Care Team Providers Name Role Phone Unavailable Primary Care Provider Unavailable Encounter Details Date Type Department Care Team Description 12/30/2020 Treatment [facility] O Ernie Gómez MD [address] [place] [address] [place], [place] [phone] [phone] (Wo rk) Social History Tobacco Use Types Packs/Day Years Used Date Smoking Tobacco: Unknown Comments: Smoking History Info:Patient n ot screened Sex Assigned at Date Recorded Not on file documented as of this encounter Miscellaneous Notes Dialysis Note - Ernie Pompa MD - 12/30/2020 11:49 AM CDT Date: Dec 30, 2020 Patient Name: Shaun Ocampo : 1945 Chart #: [id number] Sex: M This patient was personally seen [...] AM ) BP (sit): 117/57 AP(-) / SOCIAL INSURANCE ANALYST: 240/207 Pulse: 75 Chairside data as of [...] 2.0 mcg ORAL Every Treatment 12/30/2020 12/29/2021 COOK SAUCE: Ernie Pompa MD LOCATION: [facility] [phone] SCHEDULE: -- 2nd Shift EDW: kg. DIALYZER: [...] for ureteral ?tumor early next month in [place]. 06/10: Doing well overall, no new complaints, [...] Went to Urgent care -> ER in [place] yesterday,CT with R hydro but no obstructive [...] He had infiltration last week, dialyzed at [facility] on Sat and went well, access [...] prescription. Vascular Access Assessment Type of access: [id number]/2019 Surgeon Annita GARDNER Access working well Anemia [...] at goal. Intact PTH is at goal. Agricultural Science Professor will adjust binders and vitamin D [...] improved Diabetic foot wound healed, looks excellent Erine Pompa MD [ Signed And locked electronically On 12/30/2020 at 11:52:33 AM ] Transcribed: Ernie Pompa ( 12/30/2020 ) documented in this encounter Plan of Treatment Not on filedocumented as of this encounter Visit Diagnoses Not on filedocumented in this encounter
--- OUTSIDE RECORDS SUMMARY | 2022-02-24 13:26 | XMS_ITS | Encounter Summary ---
:1945 Author Organization [facility] Address [address] [place] [address] Care Team Providers Name Role Phone Unavailable Primary Care Provider Unavailable Encounter Details Date Type Department Care Team Description 03/24/2021 Orders Only [facility] O f Ernie Guzmán MD [address] [place] [address] [place], [place] [phone] (Wo rk) Social History Tobacco Use [...] and its performa nce characteristics determined by [facility]. It has not been cleared or approved by the FDA. The laboratory is regulated under CLIA a s qualified to perform high complexity testing. This test is used fo r clinical purposes. It should not be regarded as investigational or fo r research. Specimen (Source) Anatomical Collection Method Collection Time Re ceived Time Location / / Volume Laterality 03/24/2021 03/26/2021 11:3 3 AM WRECKING CAR DRIVER Narrative [facility] - 03/29/2021 Unless otherwise specified, test(s) performed at: [facility], [address] [place] [address] TRANSPORTATION CONSULTANT: Alec Payan M.D. For any questions, [...] above test result was obtained using Siemens iJentoaur XP chemiluminescent method. Results obtaine d with different assay methods or kits cannot be used interchangeably. Specimen (Source) Anatomical Collection Method Collection Time Re ceived Time Location / / Volume Laterality 03/24/2021 03/26/2021 12:2 9 PM WRECKING CAR DRIVER Resulting Agency Comment Specimen source: Serum Ernie Pompa MD LAB BLOOD ORDERABLES Performing Organization Address [facility] Code Phon [...] ORDERABLES Performing Organization Address [facility] Phon e Number [facility] SPECIAL CHEMISTRY (03/24/2021) P athologist Signature Vitamin D, 38.3 30.0 - [facility] 25-OH, Total 100.0 [facility] ng/mL Comment: Vitamin D Status Classification: Deficiency ? <10.0 ng/mL Insufficiency ?10.0-30.0 ng/mL Sufficiency ?30.0-100.0 ng/mL Toxicity ? >100.0 ng/mL Specimen (Source) Anatomical Collection Method Collection Time Re ceived Time Location / / Volume Laterality 03/24/2021 03/26/2021 12:2 9 PM WRECKING CAR DRIVER Narrative [facility] - 03/27/2021 Unless otherwise specified, test(s) performed at: [facility], [address] [place] [address] TRANSPORTATION CONSULTANT: Alec Payan M.D. For any questions, please call customer service at FREQUENCY:MONTHLY Resulting Agency Comment Specimen source: Serum Ernie Pompa MD LAB BLOOD BANK TEST ORDERABL ES Performing Organization Address City/[facility] Phon e Number [facility] (ABNORMAL) Spectrae Chemistry (03/24/2021) P athologist Signature PTH 977 (H) 16 - 80 [facility] pg/mL [facility] Specimen (Source) Anatomical Collection Method Collection Time Re ceived Time Location / / Volume Laterality 03/24/2021 03/26/2021 11:4 0 AM WRECKING CAR DRIVER Narrative [facility] - 03/26/2021 Unless otherwise specified, test(s) performed at: [facility], [address] [place] [address] TRANSPORTATION CONSULTANT: Alec Payan M.D. For any questions, please call customer service at FREQUENCY:MONTHLY Resulting Agency Comment Specimen source: Plasma Ernie Pompa MD LAB BLOOD ORDERABLES Performing Organization Address [facility] Phon e Number [facility] HD KINETICS (03/24/2021) P athologist Signature % Urea 75 65 - 80 % [facility] Reduction [facility] Specimen (Source) Anatomical Collection Method Collection Time Re ceived Time Location / / Volume Laterality 03/24/2021 03/26/2021 2:17 PM WRECKING CAR DRIVER Resulting Agency Comment Specimen source: Plasma Ernie Pompa MD LAB BLOOD ORDERABLES Performing Organization Address [facility] Code Phon e Number [facility] POST CHEMISTRY (03/24/2021) P athologist Signature BUN Post 16 6 - 19 [facility] Dialysis mg/dL [facility] Specimen (Source) Anatomical Collection Method Collection Time Re ceived Time Location / / Volume Laterality 03/24/2021 03/26/2021 2:15 PM WRECKING CAR DRIVER Narrative [facility] - 03/26/2021 Unless otherwise specified, test(s) performed at: [facility], [address] [place] [address] TRANSPORTATION CONSULTANT: Alec Payan M.D. For any questions, please call customer service at FREQUENCY:MONTHLY Resulting Agency Comment Specimen source: Plasma Ernie Pompa MD LAB BLOOD ORDERABLES Performing Organization Address [facility] Phon e Number [facility] (ABNORMAL) Spectrae Chemistry (03/24/2021) [facility] gist Method Time Signature BUN 63 [...] Volume Laterality 03/24/2021 03/26/2021 12:2 9 PM WRECKING CAR DRIVER Narrative [facility] - 03/28/2021 Unless otherwise specified, test(s) performed at: [facility], [address] [place] [address] TRANSPORTATION CONSULTANT: Alec Payan M.D. For any questions, please call customer service at FREQUENCY:MONTHLY Resulting Agency Comment Specimen source: Serum Ernie Pompa MD LAB BLOOD ORDERABLES Performing Organization Address City/State/[facility] Code Phon e [...] Volume Laterality 03/24/2021 03/26/2021 11:5 3 AM WRECKING CAR DRIVER Narrative [facility] - 03/26/2021 Unless otherwise specified, test(s) performed at: [facility], [address] [place] [address] TRANSPORTATION CONSULTANT: Alec Payan M.D. For any questions, please call customer service at FREQUENCY:MONTHLY Resulting Agency Comment Specimen source: Blood Ernie Pompa MD LAB BLOOD ORDERABLES Performing Organization Address City/[facility]/ZIP [facility] Phon e Number [facility] documented in this encounter Visit Diagnoses Not on filedocumented in this encounter
--- OUTSIDE RECORDS SUMMARY | 2022-02-24 13:26 | XMS_ITS | Encounter Summary ---
:1945 Author Organization [facility] Address [address] [place] [address] Care Team Providers Name Role Phone Unavailable Primary Care Provider Unavailable Encounter Details Date Type Department Care Team Description 12/23/2020 Orders Only [facility] O f Ernie Guzmán MD [address] [place] [address] [place], [place] [phone] (Wo rk) Social History Tobacco Use [...] [facility]/ZIP Code Phon e Number [facility] HD KINETICS (12/23/2020) P athologist Signature % Urea 75 65 - 80 % [facility] Reduction [facility] Specimen (Source) Anatomical Collection Method Collection Time Re ceived Time Location / / Volume Laterality 12/23/2020 12/24/2020 8:52 PM CDT Narrative [facility] - 12/25/2020 Unless otherwise specified, test(s) performed at: [facility], [address] [place], [place] [id number] HOUSING LIAISON: Alec Payan M.D. For any questions, please call customer service at FREQUENCY:MONTHLY Resulting Agency Comment Specimen source: Serum Ernie Pompa MD LAB BLOOD ORDERABLES Performing Organization Address [facility] Phon e Number [facility] IMMUNO CHEMISTRY (12/23/2020) P athologist Signature Hep B Surface Negative Negative [facility]PS SPECTRA Ag [facility] Specimen (Source) Anatomical Collection Method Collection Time Re ceived Time Location / / Volume Laterality 12/23/2020 12/24/2020 8:51 PM CDT Narrative [facility] - 12/25/2020 Unless otherwise specified, test(s) performed at: [facility], [address] [place] [address] HOUSING LIAISON: Alec Payan M.D. For any questions, please call customer service at FREQUENCY:MONTHLY Resulting Agency Comment Specimen source: Serum Ernie Pompa MD LAB BLOOD ORDERABLES Performing Organization Address City/[facility] Code Phon [...] 12/25/2020 Unless otherwise specified, test(s) performed at: [facility], [address] [place] [address] HOUSING LIAISON: Alec Payan M.D. For any questions, please [...] 12/25/2020 Unless otherwise specified, test(s) performed at: [facility], [address] [place] [address] HOUSING LIAISON: Alec Payan M.D. For any questions, please call customer service at FREQUENCY:MONTHLY Resulting Agency Comment Specimen source: Plasma Ernie Pompa MD LAB BLOOD ORDERABLES Performing Organization Address City/[facility] Phon e Number [facility] POST CHEMISTRY (12/23/2020) P athologist Signature BUN Post 11 6 - 19 [facility] Dialysis mg/dL [facility] Specimen (Source) Anatomical Collection Method Collection Time Re ceived Time Location / / Volume Laterality 12/23/2020 12/24/2020 3:54 PM CDT Narrative [facility] - 12/24/2020 Unless otherwise specified, test(s) performed at: [facility], [address] [place] [address] HOUSING LIAISON: Alec Payan M.D. For any questions, please [...] 12/24/2020 Unless otherwise specified, test(s) performed at: [facility], [address] [place] [address] HOUSING LIAISON: Alec Payan M.D. For any questions, please call customer service at FREQUENCY:MONTHLY Resulting Agency Comment Specimen source: Blood Ernie Pompa MD LAB BLOOD ORDERABLES Performing Organization Address City/State/ZIP Code Phon e Number [facility] documented in this encounter Visit Diagnoses Not on filedocumented in this encounter
--- OUTSIDE RECORDS SUMMARY | 2022-02-24 13:26 | XMS_ITS | Encounter Summary ---
:1945 Author Organization [facility] Address [address] [place] [address] Care Team Providers Name Role Phone Unavailable Primary Care Provider Unavailable Encounter Details Date Type Department Care Team Description 12/16/2020 Orders Only [facility] O f Ernie Guzmán MD [address] [place] [address] [place], [place] [phone] (Wo rk) Social History Tobacco Use [...] 12/17/2020 Unless otherwise specified, test(s) performed at: [facility], [address] [place] [address] COMMERCIAL MARKETING SPECIALIST: Alec Payan M.D. For any questions, please call customer service at FREQUENCY:OTHER Resulting Agency Comment Specimen source: Blood Ernie Pompa MD LAB BLOOD ORDERABLES Performing Organization Address City/State/ZIP Code Phon e Number [facility] documented in this encounter Visit Diagnoses Not on filedocumented in this encounter
--- OUTSIDE RECORDS SUMMARY | 2022-02-24 13:26 | XMS_ITS | Encounter Summary ---
:1945 Author Organization [facility] Address [address] [place] [address] Care Team Providers Name Role Phone Unavailable Primary Care Provider Unavailable Encounter Details Date Type Department Care Team Description 03/03/2021 Treatment [facility] O Ernie Gómez MD [address] [place] [address] [place], [place] [address] [phone] (Wo rk) Social History Tobacco Use Types Packs/Day Years Used Date Smoking Tobacco: Unknown Comments: Smoking History Info:Patient n ot screened Sex Assigned at Date Recorded Not on file documented as of this encounter Miscellaneous Notes Dialysis Note - Ernie Pompa MD - 03/03/2021 9:56 AM CST Date: Mar 03, 2021 Patient Name: Shaun Ocampo : 1945 Chart #: [id number] Sex: M This patient was personally seen [...] AM ) BP (sit): 124/50 AP(-) / EQUINE INTERN: 188/160 Pulse: 72 Chairside data as of [...] 11/20/2020 Access Flow 1384 > 2000 1432 MOSAIC FLOOR LAYER: Ernie Pompa MD LOCATION: [place] [phone] SCHEDULE: -- 2nd Shift EDW: kg. 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 06/10: Doing well overall, no new complaints, [...] Went to Urgent care -> ER in [place] yesterday,CT with R hydro but no obstructive [...] prescription. Vascular Access Assessment Type of access: Drlrfme40/2019 Surgeon - Lary KUMARW Access working well [...] above goal. Intact PTH is at goal. Bi Tester will adjust binders and vitamin D [...]
--- OUTSIDE RECORDS SUMMARY | 2022-02-24 13:26 | XMS_ITS | Encounter Summary ---
:1945 Author Organization [facility] Address [address] [place] [address] Care Team Providers Name Role Phone Unavailable Primary Care Provider Unavailable Encounter Details Date Type Department Care Team Description 01/13/2021 Treatment [facility] O Ernie Gómez MD [address] [place] [address] [place], [place] [phone] [phone] (Wo rk) Social History Tobacco Use Types Packs/Day Years Used Date Smoking Tobacco: Unknown Comments: Smoking History Info:Patient n ot screened Sex Assigned at Date Recorded Not on file documented as of this encounter Miscellaneous Notes Dialysis Note - Ernie Pompa MD - 01/13/2021 11:13 AM CDT Date: Jan 13, 2021 Patient Name: Shaun Ocampo : 1945 Chart #: [id number] Sex: M This patient was personally seen [...] AM ) BP (sit): 122/55 AP(-) / CREW SUPERVISOR: n/a Pulse: 70 Chairside data as of [...] 2.0 mcg ORAL Every Treatment 12/30/2020 12/29/2021 MEDICAL MANAGEMENT SPECIALIST: Ernie Pompa MD LOCATION: [facility] [phone] SCHEDULE: -- 2nd Shift ACCESS: EDW: kg. 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 06/10: Doing well overall, no new complaints, [...] to Urgent care -> ER in [place] yesterday,CT with R hydro but no obstructive [...] He had infiltration last week, dialyzed at [facility] on Sat and went well, [...] (10/21/20) Vascular Access Assessment: Type of access: [id number]/2019 Surgeon - Lary GARDNER Access working well [...]
--- OUTSIDE RECORDS SUMMARY | 2022-02-24 13:26 | XMS_ITS | Encounter Summary ---
:1945 Author Organization [facility] Address [address] [place] [address] Care Team Providers Name Role Phone Unavailable Primary Care Provider Unavailable Encounter Details Date Type Department Care Team Description 01/27/2021 Orders [facility] O f Ernie Guzmán MD [address] [place] [address] [place], [place] [phone] (Wo rk) Social History Tobacco Use [...] Volume Laterality 01/27/2021 01/28/2021 10:1 8 PM BOILER SHOP SUPERVISOR Narrative [facility] - 01/29/2021 Unless otherwise specified, test(s) performed at: [facility], [address] [place] [address] RECORD FILING CLERK: Alec Payan M.D. For any questions, [...] Volume Laterality 01/27/2021 01/28/2021 10:4 1 PM BOILER SHOP SUPERVISOR Narrative [facility] - 01/29/2021 Unless otherwise specified, test(s) performed at: [facility], [address] [place] [address] RECORD FILING CLERK: Alec Payan M.D. For any questions, please call customer service at FREQUENCY:OTHER Resulting Agency Comment Specimen source: Serum Ernie Pompa MD LAB BLOOD ORDERABLES Performing Organization Address City/State/ZIP Code Phon e Number [facility] documented in this encounter Visit Diagnoses Not on filedocumented in this encounter
--- OUTSIDE RECORDS SUMMARY | 2022-02-24 13:27 | XMS_ITS | Encounter Summary ---
:1945 Author Organization [facility] Address [address] [place] [address] Care Team Providers Name Role Phone Unavailable Primary Care Provider Unavailable Encounter Details Date Type Department Care Team Description 09/09/2020 Treatment [facility] f Ernie Guzmán MD [address] [place] [address] [place], [place] [phone] [phone] (Wo rk) Social History Tobacco Use Types Packs/Day Years Used Date Smoking Tobacco: Unknown Comments: Smoking History Info:Patient n ot screened Sex Assigned at Date Recorded Not on file documented as of this encounter Miscellaneous Notes Dialysis Note - Ernie Pompa MD - 09/09/2020 10:22 AM CDT Date: Sep 09, 2020 Patient Name: Shaun Ocampo : 1945 Chart #: [id number] Sex: M This patient was personally seen [...] AM ) BP (sit): 116/58 AP(-) / CHICKEN PICKER: 242/201 Pulse: 71 Chairside data as of [...] 06/26/2020 Access Flow [id number] 1359 > 2000 ALUMNAE SECRETARY: Ernie Pompa MD LOCATION: [place] [phone] SCHEDULE: -- 2nd Shift ACCESS: EDW: kg. [...] for ureteral ?tumor early next month in [place]. 06/10: Doing well overall, no new complaints, [...] Went to Urgent care -> ER in [place] yesterday,CT with R hydro but no obstructive [...] had infiltration last week, dialyzed at [facility] on Sat and went well, access [...] (06/24/20) Vascular Access Assessment: Type of access: Optdeqi01/2019 Surgeon - Lary GARDNER Access working well [...]
--- OUTSIDE RECORDS SUMMARY | 2022-02-24 13:27 | XMS_ITS | Encounter Summary ---
:1945 Author Organization [facility] Address [address] [place] [address] Care Team Providers Name Role Phone Unavailable Primary Care Provider Unavailable Encounter Details Date Type Department Care Team Description 10/28/2020 Orders [facility] O f Ernie Guzmán MD [address] [place] [address] [place], [place] [phone] (Wo rk) Social History Tobacco Use [...] 10/29/2020 Unless otherwise specified, test(s) performed at: [facility], [address] [place] [address] DINING ROOM MANAGER: Alec Payan M.D. For any questions, please call customer service at FREQUENCY:OTHER Resulting Agency Comment Specimen source: Blood Ernie Pompa MD LAB BLOOD ORDERABLES Performing Organization Address City/State/ZIP Code Phon e Number [facility] documented in this encounter Visit Diagnoses Not on filedocumented in this encounter
--- OUTSIDE RECORDS SUMMARY | 2022-02-24 13:27 | XMS_ITS | Encounter Summary ---
:1945 Author Organization [facility] Address [address] [place] [address] Care Team Providers Name Role Phone Unavailable Primary Care Provider Unavailable Encounter Details Date Type Department Care Team Description 09/30/2020 Orders [facility] O f Ernie Guzmán MD [address] [place] [address] [place], [place] [phone] (Wo rk) Social History Tobacco Use [...] Provider LAB BLOOD ORDERABLES Performing Organization Address [facility] Code Phon e Number KAMERON (ABNORMAL) [...] 10/02/2020 Unless otherwise specified, test(s) performed at: [facility], [address] [place], [place] [address] PRODUCT/INDUSTRY CONSULTANT: Alec Payan M.D. For any questions, please call customer service at FREQUENCY:OTHER Resulting Agency Comment Specimen source: Blood Ernie Pompa MD LAB BLOOD ORDERABLES Performing Organization Address [facility] Phon e Number [facility] HD KINETICS (09/30/2020) P athologist Signature % Urea 77 65 - 80 % [facility] Reduction [facility] Specimen (Source) Anatomical Collection Method Collection Time Re ceived Time Location / / Volume Laterality 09/30/2020 10/01/2020 5:40 PM CDT Narrative [facility] - 10/01/2020 Unless otherwise specified, test(s) performed at: [facility], [address] [place] [address] PRODUCT/INDUSTRY CONSULTANT: Alec Payan M.D. For any questions, please call customer service at FREQUENCY:OTHER Resulting Agency Comment Specimen source: Serum Ernie Pompa MD LAB BLOOD ORDERABLES Performing Organization Address [facility] Phon e Number [facility] S[facility]RA [facility] (ABNORMAL) Spectrae Chemistry (09/30/2020) P athologist Signature BUN 44 (H) 6 - 19 APS SPECTRA mg/dL [facility] Specimen (Source) Anatomical Collection Method Collection Time Re ceived Time Location / / Volume Laterality 09/30/2020 10/01/2020 5:39 PM CDT Narrative [facility] - 10/01/2020 Unless otherwise specified, test(s) performed at: [facility], [address] [place] [address] PRODUCT/INDUSTRY CONSULTANT: Alec Payan M.D. For any questions, please call customer service at FREQUENCY:OTHER Resulting Agency Comment Specimen source: Serum Ernie Pompa MD LAB BLOOD ORDERABLES Performing Organization Address City/[facility]IP [facility] [place] 10/01/2020 Unless otherwise specified, test(s) performed at: [facility], [address] [place] [address] PRODUCT/INDUSTRY CONSULTANT: Alec Payan M.D. For any questions, please call customer service at FREQUENCY:OTHER Resulting Agency Comment Specimen source: Plasma Ernie Pompa MD LAB BLOOD ORDERABLES Performing Organization Address City/[facility] [facility] [place] Phon e Number [facility] documented in this encounter Visit Diagnoses Not on filedocumented in this encounter
--- OUTSIDE RECORDS SUMMARY | 2022-02-24 13:27 | XMS_ITS | Encounter Summary ---
:1945 Author Organization [facility] Address [address] [place] [address] Care Team Providers Name Role Phone Unavailable Primary Care Provider Unavailable Encounter Details Date Type Department Care Team Description 10/07/2020 Treatment [facility] f Ernie Guzmán MD [address] [place] [address] [place], [place] [phone] [phone] (Wo rk) Social History Tobacco Use Types Packs/Day Years Used Date Smoking Tobacco: Unknown Comments: Smoking History Info:Patient n ot screened Sex Assigned at Date Recorded Not on file documented as of this encounter Miscellaneous Notes Dialysis Note - Ernie Pompa MD - 10/07/2020 10:59 AM CDT Date: Oct 07, 2020 Patient Name: Shaun Ocampo : 1945 Chart #: [id number] Sex: M This patient was personally seen [...] AM ) BP (sit): 125/63 AP(-) / FLOWER CUTTER: 232/178 Pulse: 70 Chairside data as of [...] Every 2 weeks During Dialysis 09/30/2020 09/29/2021 REAL ESTATE CLOSING COORDINATOR: Ernie Pompa MD LOCATION: [facility] [phone] SCHEDULE: M-W- 2nd Shift ACCESS: EDW: kg. [...] for ureteral ?tumor early next month in [place]. 06/10: Doing well overall, no new complaints, [...] Went to Urgent care -> ER in [place] yesterday,CT with R hydro but no obstructive [...] (07/22/20) Vascular Access Assessment: Type of access: Nluenhj12/2019 Surgeon - Lary KUMARW Access working well [...]
--- OUTSIDE RECORDS SUMMARY | 2022-02-24 13:27 | XMS_ITS | Encounter Summary ---
:1945 Author Organization [facility] Address [address] [place] [address] Care Team Providers Name Role Phone Unavailable Primary Care Provider Unavailable Encounter Details Date Type Department Care Team Description 09/02/2020 Orders [facility] O f Ernie Guzmán MD [address] [place] [address] [place], [place] [phone] (Wo rk) Social History Tobacco Use [...] 09/03/2020 Unless otherwise specified, test(s) performed at: [facility], [address] [place] [address] EXHAUST AND MUFFLER FITTER: Alec Payan M.D. For any questions, please call customer service at FREQUENCY:OTHER Resulting Agency Comment Specimen source: Blood Ernie Pompa MD LAB BLOOD ORDERABLES Performing Organization Address City/State/ZIP Code Phon e Number [facility] documented in this encounter Visit Diagnoses Not on filedocumented in this encounter
--- OUTSIDE RECORDS SUMMARY | 2022-02-24 13:27 | XMS_ITS | Encounter Summary ---
:1945 Author Organization [facility] Address [address] [place] [address] Care Team Providers Name Role Phone Unavailable Primary Care Provider Unavailable Encounter Details Date Type Department Care Team Description 10/07/2020 Orders [facility] O f Ernie Guzmán MD [address] [place] [address] [place], [place] [phone] (Wo rk) Social History Tobacco Use [...] 10/09/2020 Unless otherwise specified, test(s) performed at: [facility], [address] [place] [address] PHYSICIST LIGHT AND OPTICS: Alec Payan M.D. For any questions, please call customer service at FREQUENCY:OTHER Resulting Agency Comment Specimen source: Blood Ernie Pompa MD LAB BLOOD ORDERABLES Performing Organization Address City/State/ZIP Code Phon e Number [facility] documented in this encounter Visit Diagnoses Not on filedocumented in this encounter
--- OUTSIDE RECORDS SUMMARY | 2022-02-24 13:27 | XMS_ITS | Encounter Summary ---
:1945 Author Organization [facility] Address [address] [place] [address] Care Team Providers Name Role Phone Unavailable Primary Care Provider Unavailable Encounter Details Date Type Department Care Team Description 08/19/2020 Orders [facility] O f Ernie Guzmán MD [address] [place] [address] [place], [place] [phone] (Wo rk) Social History Tobacco Use [...] MD LAB BLOOD ORDERABLES Performing Organization Address City/[facility]/ZIP Code Phon e Number [facility] POST CHEMISTRY (08/19/2020) athologist Signature BUN Post 11 6 - 19 APS SPECTRA Dialysis mg/dL [facility] Specimen (Source) Anatomical Collection Method Collection Time Re ceived Time Location / / Volume Laterality 08/19/2020 08/21/2020 12:3 5 PM CDT Narrative [facility] - 08/22/2020 Unless otherwise specified, test(s) performed at: [facility], [address] [place] [address] GRAIN PROCESSOR: Alec Payan M.D. For any questions, please call customer service at FREQUENCY:MONTHLY Resulting Agency Comment Specimen source: Plasma Ernie Pompa MD LAB BLOOD ORDERABLES Performing Organization Address City/[facility]/ZIP Code Phon e Number [facility]PS [facility]RA [facility] (ABNORMAL) Spectrae Chemistry (08/19/2020) [facility] Method Time Signature BUN 49 (H) [...] 08/22/2020 Unless otherwise specified, test(s) performed at: [facility], [address] [place] [address] GRAIN PROCESSOR: Alec Payan M.D. For any questions, please [...] 08/21/2020 Unless otherwise specified, test(s) performed at: [facility], [address] [place] [address] GRAIN PROCESSOR: Alec Payan M.D. For any questions, please call customer service at FREQUENCY:MONTHLY Resulting Agency Comment Specimen source: Plasma Ernie Pompa MD LAB BLOOD ORDERABLES Performing Organization Address City/[facility] Phon e Number APS SPECTRA [...] 08/21/2020 Unless otherwise specified, test(s) performed at: [facility], [address] [place] [address] GRAIN PROCESSOR: Alec Payan M.D. For any questions, please call customer service at FREQUENCY:MONTHLY Resulting Agency Comment Specimen source: Serum Ernie Pompa MD LAB BLOOD ORDERABLES Performing Organization Address [facility] Phon e Number APS SPECTRA [...] 08/21/2020 Unless otherwise specified, test(s) performed at: [facility], [address] [place] [address] GRAIN PROCESSOR: Alec Payan M.D. For any questions, please call customer service at FREQUENCY:MONTHLY Resulting Agency Comment Specimen source: Blood Ernie Pompa MD LAB BLOOD ORDERABLES Performing Organization Address City/State/ZIP Code Phon e Number [facility] documented in this encounter Visit Diagnoses Not on filedocumented in this encounter
--- OUTSIDE RECORDS SUMMARY | 2022-02-24 13:27 | XMS_ITS | Encounter Summary ---
:1945 Author Organization [facility] Address [address] [place] [address] Care Team Providers Name Role Phone Unavailable Primary Care Provider Unavailable Encounter Details Date Type Department Care Team Description 09/25/2020 Orders [facility] O f Ernie Guzmán MD [address] [place] [address] [place], [place] [phone] (Wo rk) Social History Tobacco Use [...] 09/26/2020 Unless otherwise specified, test(s) performed at: [facility], [address] [place] [address] DIE CAST ENGINEER: Alec Payan M.D. For any questions, please call customer service at FREQUENCY:OTHER Resulting Agency Comment Specimen source: Serum Ernie Pompa MD LAB BLOOD ORDERABLES Performing Organization Address City/State/ZIP Code Phon e Number [facility] documented in this encounter Visit Diagnoses Not on filedocumented in this encounter
--- OUTSIDE RECORDS SUMMARY | 2022-02-24 13:27 | XMS_ITS | Encounter Summary ---
:1945 Author Organization [facility] Address [address] [place] [address] Care Team Providers Name Role Phone Unavailable Primary Care Provider Unavailable Encounter Details Date Type Department Care Team Description 11/04/2020 Orders [facility] O f Ernie Guzmán MD [address] [place] [address] [place], [place] [phone] (Wo rk) Social History Tobacco Use [...] 11/05/2020 Unless otherwise specified, test(s) performed at: [facility], [address] [place] [address] BROADCAST DIRECTOR OPERATIONS: Alec Payan M.D. For any questions, please call customer service at FREQUENCY:OTHER Resulting Agency Comment Specimen source: Blood Ernie Pompa MD LAB BLOOD ORDERABLES Performing Organization Address City/State/ZIP Code Phon e Number [facility] documented in this encounter Visit Diagnoses Not on filedocumented in this encounter
--- OUTSIDE RECORDS SUMMARY | 2022-02-24 13:27 | XMS_ITS | Encounter Summary ---
:1945 Author Organization [facility] Address [address] [place] [address] Care Team Providers Name Role Phone Unavailable Primary Care Provider Unavailable Encounter Details Date Type Department Care Team Description 11/11/2020 [facility] O f Ernie Guzmán MD [address] [place] [address] [place], [place] [phone] (Wo rk) Social History Tobacco Use [...] 11/12/2020 Unless otherwise specified, test(s) performed at: [facility], [address] [place] [address] SENIOR LOAN PROCESSOR: Alec Payan M.D. For any questions, please call customer service at FREQUENCY:OTHER Resulting Agency Comment Specimen source: Blood Ernie Pompa MD LAB BLOOD ORDERABLES Performing Organization Address City/State/ZIP Code Phon e Number [facility] documented in this encounter Visit Diagnoses Not on filedocumented in this encounter
--- OUTSIDE RECORDS SUMMARY | 2022-02-24 13:27 | XMS_ITS | Encounter Summary ---
:1945 Author Organization [facility] Address [address] [place] [address] Care Team Providers Name Role Phone Unavailable Primary Care Provider Unavailable Encounter Details Date Type Department Care Team Description 2020 [facility] O f Ernie Guzmán MD [address] [place] [address] [place], [place] [phone] (Wo rk) Social History Tobacco Use [...] 08/06/2020 Unless otherwise specified, test(s) performed at: [facility], [address] [place] [address] TITLE LAWYER: Alec Payan M.D. For any questions, please call customer service at FREQUENCY:OTHER Resulting Agency Comment Specimen source: Blood Ernie Pompa MD LAB BLOOD ORDERABLES Performing Organization Address City/State/ZIP Code Phon e Number [facility] documented in this encounter Visit Diagnoses Not on filedocumented in this encounter
--- OUTSIDE RECORDS SUMMARY | 2022-02-24 13:27 | XMS_ITS | Encounter Summary ---
:1945 Author Organization [facility] Address [address] [place] [address] Care Team Providers Name Role Phone Unavailable Primary Care Provider Unavailable Encounter Details Date Type Department Care Team Description 11/18/2020 Treatment [facility] O Ernie Gómez MD [address] [place] [address] [place], [place] [phone] [phone] (Wo rk) Social History Tobacco Use Types Packs/Day Years Used Date Smoking Tobacco: Unknown Comments: Smoking History Info:Patient n ot screened Sex Assigned at Date Recorded Not on file documented as of this encounter Miscellaneous Notes Dialysis Note - Ernie Pompa MD - 11/18/2020 9:48 AM CDT Date: Nov 18, 2020 Patient Name: Shaun Ocampo : 1945 Chart #: [id number] Sex: M This patient was personally seen [...] 1.5 mcg ORAL Every Treatment 11/02/2020 11/01/2021 METAL FABRICATOR: Ernie Pompa MD LOCATION: [phone] SCHEDULE: -- 2nd Shift EDW: kg. DIALYZER: [...] for ureteral ?tumor early next month in [place]. 06/10: Doing well overall, no new complaints, [...] He had infiltration last week, dialyzed at [facility] on Sat and went well, access [...] prescription. Vascular Access Assessment Type of access: Colbmep72/2019 Surgeon Annita KUMARW Access working well Anemia [...] above goal. Intact PTH is above goal. Library Media Technician will adjust binders and vitamin D [...]
--- OUTSIDE RECORDS SUMMARY | 2022-02-24 13:27 | XMS_ITS | Encounter Summary ---
:1945 Author Organization [facility] Address [address] [place] [address] Care Team Providers Name Role Phone Unavailable Primary Care Provider Unavailable Encounter Details Date Type Department Care Team Description 09/16/2020 Orders [facility] f Ernie Guzmán MD [address] [place] [address] [place], [place] [phone] (Wo rk) Social History Tobacco Use [...] 09/17/2020 Unless otherwise specified, test(s) performed at: [facility], [address] [place] [address] SODA DISPENSER: Alec Payan M.D. For any questions, please call customer service at FREQUENCY:OTHER Resulting Agency Comment Specimen source: Blood Ernie Pompa MD LAB BLOOD ORDERABLES Performing Organization Address City/State/ZIP Code Phon e Number APS SPECTRA [facility] documented in this encounter Visit Diagnoses Not on filedocumented in this encounter
--- OUTSIDE RECORDS SUMMARY | 2022-02-24 13:27 | XMS_ITS | Encounter Summary ---
:1945 Author Organization [facility] Address [address] [place] [address] Care Team Providers Name Role Phone Unavailable Primary Care Provider Unavailable Encounter Details Date Type Department Care Team Description 11/25/2020 [facility] f Ernie Guzmán MD [address] [place] [address] [place], [place] [phone] (Wo rk) Social History Tobacco Use [...] 11/26/2020 Unless otherwise specified, test(s) performed at: [facility], [address] [place] [address] AUTOMAT CAR ATTENDANT: Alec Payan M.D. For any questions, please call customer service at FREQUENCY:OTHER Resulting Agency Comment Specimen source: Blood Ernie Pompa MD LAB BLOOD ORDERABLES Performing Organization Address City/State/ZIP Code Phon e Number APS SPECTRA [facility] documented in this encounter Visit Diagnoses Not on filedocumented in this encounter
--- OUTSIDE RECORDS SUMMARY | 2022-02-24 13:27 | XMS_ITS | Encounter Summary ---
:1945 Author Organization [facility] Address [address] [place] [address] Care Team Providers Name Role Phone Unavailable Primary Care Provider Unavailable Encounter Details Date Type Department Care Team Description 10/21/2020 Treatment [facility] O Ernie Gómez MD [address] [place] [address] [place], [place] [phone] [phone] (Wo rk) Social History Tobacco Use Types Packs/Day Years Used Date Smoking Tobacco: Unknown Comments: Smoking History Info:Patient n ot screened Sex Assigned at Date Recorded Not on file documented as of this encounter Miscellaneous Notes Dialysis Note - Ernie Pompa MD - 10/21/2020 12:00 PM CDT Date: Oct 21, 2020 Patient Name: Shaun Ocampo : 1945 Chart #: [id number] Sex: M This patient was personally seen [...] Every 2 weeks During Dialysis 09/30/2020 09/29/2021 BLUNGER MACHINE OPERATOR: Ernie Pompa MD LOCATION: [phone] SCHEDULE: -W- 2nd Shift EDW: kg. 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 06/10: Doing well overall, no new complaints, [...] Went to Urgent care -> ER in [place] yesterday,CT with R hydro but no obstructive [...] prescription. Vascular Access Assessment Type of access: [id number]/2019 Surgeon - Lary KUMARW Access working well [...] at goal. Intact PTH is above goal. Certified Coding Specialist will adjust binders and vitamin D [...] monitor closely without changes at this time Ernei Pompa MD [ Signed And locked electronically On 10/21/2020 at 12:02:45 PM ] Transcribed: Ernie Pompa ( 10/21/2020 ) documented in this encounter Plan of Treatment Not on filedocumented as of this encounter Visit Diagnoses Not on filedocumented in this encounter
--- OUTSIDE RECORDS SUMMARY | 2022-02-24 13:27 | XMS_ITS | Encounter Summary ---
:1945 Author Organization [facility] Address [address] [place] [address] Care Team Providers Name Role Phone Unavailable Primary Care Provider Unavailable Encounter Details Date Type Department Care Team Description 08/19/2020 Treatment [facility] f Ernie Guzmán MD [address] [place] [address] [place], [place] [phone] [phone] (Wo rk) Social History Tobacco Use Types Packs/Day Years Used Date Smoking Tobacco: Unknown Comments: Smoking History Info:Patient n ot screened Sex Assigned at Date Recorded Not on file documented as of this encounter Miscellaneous Notes Dialysis Note - Ernie Pompa MD - 08/19/2020 12:37 PM CDT Date: Aug 19, 2020 Patient Name: Shaun Ocampo : 1945 Chart #: [id number] Sex: M This patient was personally seen [...] PM ) BP (sit): 110/40 AP(-) / CHANNEL PROGRAM MANAGER: 250/194 Pulse: 67 Chairside data as of [...] Every 4 weeks During Dialysis 08/19/2020 08/18/2021 RISK DEVELOPER: Ernie Pompa MD LOCATION: [phone] SCHEDULE: M-W- 2nd Shift EDW: kg. 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 06/10: Doing well overall, no new [...] Went to Urgent care -> ER in [place] yesterday,CT with R hydro but no obstructive [...] He had infiltration last week, dialyzed at [facility] on Sat and went well, access [...] prescription. Vascular Access Assessment Type of access: [id number]/2019 Surgeon - Lary GARDNER Access working well [...] above goal. Intact PTH is above goal. Finishing Department Supervisor will adjust binders and vitamin D [...]
--- OUTSIDE RECORDS SUMMARY | 2022-02-24 13:27 | XMS_ITS | Encounter Summary ---
:1945 Author Organization [facility] Address [address] [place] [address] Care Team Providers Name Role Phone Unavailable Primary Care Provider Unavailable Encounter Details Date Type Department Care Team Description 12/02/2020 Orders [facility] f Ernie Guzmán MD [address] [place] [address] [place], [place] [phone] (Wo rk) Social History Tobacco Use [...] 12/03/2020 Unless otherwise specified, test(s) performed at: [facility], [address] [place] [address] QA INTERNSHIP: Alec Payan M.D. For any questions, please call customer service at FREQUENCY:OTHER Resulting Agency Comment Specimen source: Blood Ernie Pompa MD LAB BLOOD ORDERABLES Performing Organization Address City/State/ZIP Code Phon e Number APS SPECTRA [facility] documented in this encounter Visit Diagnoses Not on filedocumented in this encounter
--- OUTSIDE RECORDS SUMMARY | 2022-02-24 13:27 | XMS_ITS | Encounter Summary ---
:1945 Author Organization [facility] Address [address] [place] [address] Care Team Providers Name Role Phone Unavailable Primary Care Provider Unavailable Encounter Details Date Type Department Care Team Description 11/18/2020 Orders [facility] f Ernie Guzmán MD [address] [place] [address] [place], [place] [phone] (Wo rk) Social History Tobacco Use [...] LAB BLOOD ORDERABLES Performing Organization Address City/[facility]/ZIP Code Phon e Number APS SPECTRA [facility] POST CHEMISTRY (11/18/2020) athologist Signature BUN Post 11 6 - 19 APS SPECTRA Dialysis mg/dL [facility] Specimen (Source) Anatomical Collection Method Collection Time Re ceived Time Location / / Volume Laterality 11/18/2020 11/19/2020 6:04 PM CDT Narrative APS SPECTRA [facility] - 11/19/2020 Unless otherwise specified, test(s) performed at: [facility], [address] [place] [address] HAULING CONTRACTOR: Alec Payan M.D. For any questions, please call customer service at FREQUENCY:MONTHLY Resulting Agency Comment Specimen source: Plasma Ernie Pompa MD LAB BLOOD ORDERABLES Performing Organization Address City/[facility] Code Phon e Number APS SPECTRA [facility] IMMUNO CHEMISTRY (11/18/2020) P athologist Signature Hep B Surface Negative Negative APS SPECTRA Ag [facility] Specimen (Source) Anatomical Collection Method Collection Time Re ceived Time Location / / Volume Laterality 11/18/2020 11/19/2020 3:22 PM CDT Narrative APS SPECTRA [facility] - 11/19/2020 Unless otherwise specified, test(s) performed at: [facility], [address] [place] [address] HAULING CONTRACTOR: Alec Payan M.D. For any questions, [...] 11/19/2020 Unless otherwise specified, test(s) performed at: [facility], [address] [place] [address] HAULING CONTRACTOR: Alec Payan M.D. For any questions, please call customer service at FREQUENCY:MONTHLY Resulting Agency Comment Specimen source: Blood Ernie Pompa MD LAB BLOOD ORDERABLES Performing Organization Address City/State/[facility] Code Phon e Number APS SPECTRA [facility] (ABNORMAL) Spectrae Chemistry (11/18/2020) P athologist Signature PTH 969 (H) 16 - 80 APS SPECTRA pg/mL [facility] Specimen (Source) Anatomical Collection Method Collection Time Re ceived Time Location / / Volume Laterality 11/18/2020 11/19/2020 5:01 PM CDT Narrative APS SPECTRA [facility] - 11/19/2020 Unless otherwise specified, test(s) performed at: [facility], [address] [place] [address] HAULING CONTRACTOR: Alec Payan M.D. For any questions, please call customer service at FREQUENCY:MONTHLY Resulting Agency Comment Specimen source: Plasma Ernie Pompa MD LAB BLOOD ORDERABLES Performing Organization Address City/State/ZIP Code Phon e Number APS SPECTRA [facility] (ABNORMAL) Spectrae Chemistry (11/18/2020) [employer] gist Method Time Signature BUN 51 (H) [...] 11/19/2020 Unless otherwise specified, test(s) performed at: [facility], [address] [place] [address] HAULING CONTRACTOR: Alec Payan M.D. For any questions, please call customer service at FREQUENCY:MONTHLY Resulting Agency Comment Specimen source: Serum Ernie Pompa MD LAB BLOOD ORDERABLES Performing Organization Address City/State/ZIP Code Phon e Number APS SPECTRA [facility] documented in this encounter Visit Diagnoses Not on filedocumented in this encounter
--- OUTSIDE RECORDS SUMMARY | 2022-02-24 13:27 | XMS_ITS | Encounter Summary ---
:1945 Author Organization [facility] Address [address] [place] [address] Care Team Providers Name Role Phone Unavailable Primary Care Provider Unavailable Encounter Details Date Type Department Care Team Description 08/26/2020 Orders [facility] O f Ernie Guzmán MD [address] [place] [address] [place], [place] [phone] (Wo rk) Social History Tobacco Use [...] 08/27/2020 Unless otherwise specified, test(s) performed at: [facility], [address] [place] [address] ELECTROCARDIOGRAPH TECHNICIAN: Alec Payan M.D. For any questions, please call customer service at FREQUENCY:OTHER Resulting Agency Comment Specimen source: Blood Ernie Pompa MD LAB BLOOD ORDERABLES Performing Organization Address City/State/ZIP Code Phon e Number APS SPECTRA [facility] documented in this encounter Visit Diagnoses Not on filedocumented in this encounter
--- OUTSIDE RECORDS SUMMARY | 2022-02-24 13:27 | XMS_ITS | Encounter Summary ---
:1945 Author Organization [facility] Address [address] [place] [address] Care Team Providers Name Role Phone Unavailable Primary Care Provider Unavailable Encounter Details Date Type Department Care Team Description 10/21/2020 Orders [facility] f Ernie Guzmán MD [address] [place] [address] [place], [place] [phone] (Wo rk) Social History Tobacco Use [...] Provider LAB BLOOD ORDERABLES Performing Organization Address City/[facility]/ZIP Code Phon e Number [facility] IMMUNO CHEMISTRY (10/21/2020) athologist Signature Hep B Surface Negative Negative APS SPECTRA Ag [facility] Specimen (Source) Anatomical Collection Method Collection Time Re ceived Time Location / / Volume Laterality 10/21/2020 10/22/2020 9:40 PM CDT Narrative APS SPECTRA [facility] - 10/23/2020 Unless otherwise specified, test(s) performed at: [facility], [address] [place], [place] [id number] FEDERAL JUDICIAL LAW CLERK: Alec Payan M.D. For any questions, please call customer service at FREQUENCY:MONTHLY Resulting Agency Comment Specimen source: Serum Ernie Pompa MD LAB BLOOD ORDERABLES Performing Organization Address [facility] Phon e Number APS SPECTRA [facility] (ABNORMAL) Spectrae Chemistry (10/21/2020) athologist [facility] PTH 785 (H) 16 - 80 APS SPECTRA pg/mL [facility] Specimen (Source) Anatomical Collection Method Collection Time Re ceived Time Location / / Volume Laterality 10/21/2020 10/22/2020 8:05 PM CDT Narrative APS SPECTRA [facility] - 10/23/2020 Unless otherwise specified, test(s) performed at: [facility], [address] [place] [address] FEDERAL JUDICIAL LAW CLERK: Alec Payan M.D. For any questions, please call customer service at FREQUENCY:MONTHLY Resulting Agency Comment Specimen source: Plasma Ernie Pompa MD LAB BLOOD ORDERABLES Performing Organization Address City/[facility] Phon e Number APS SPECTRA [facility] HD KINETICS (10/21/2020) athologist Signature % Urea 76 65 - 80 % APS SPECTRA Reduction [facility] Specimen (Source) Anatomical Collection Method Collection Time Re ceived Time Location / / Volume Laterality 10/21/2020 10/22/2020 9:40 PM CDT Narrative APS SPECTRA [facility] - 10/23/2020 Unless otherwise specified, test(s) performed at: [facility], [address] [place] [address] FEDERAL JUDICIAL LAW CLERK: Alec Payan M.D. For any questions, please call customer service at FREQUENCY:MONTHLY Resulting Agency Comment Specimen source: Serum Ernie Pompa MD LAB BLOOD ORDERABLES Performing Organization Address City/State/ZIP Code Phon e Number APS SPECTRA [facility] (ABNORMAL) Spectrae Chemistry (10/21/2020) [facility] gist Method Time Signature BUN 45 [...] 10/23/2020 Unless otherwise specified, test(s) performed at: [facility], [address] [place] [address] FEDERAL JUDICIAL LAW CLERK: Alec Payan M.D. For any questions, [...] 10/23/2020 Unless otherwise specified, test(s) performed at: [facility], [address] [place] [address] FEDERAL JUDICIAL LAW CLERK: Alec Payan M.D. For any questions, [...] 10/22/2020 Unless otherwise specified, test(s) performed at: [facility], [address] [place] [address] FEDERAL JUDICIAL LAW CLERK: Alec Payan M.D. For any questions, please call customer service at FREQUENCY:MONTHLY Resulting Agency Comment Specimen source: Plasma Ernie Pompa MD LAB BLOOD ORDERABLES Performing Organization Address City/State/[place] Code Phon e Number APS SPECTRA [facility] documented in this encounter Visit Diagnoses Not on filedocumented in this encounter
--- OUTSIDE RECORDS SUMMARY | 2022-02-24 13:27 | XMS_ITS | Encounter Summary ---
:1945 Author Organization [facility] Address [address] [place] [address] Care Team Providers Name Role Phone Unavailable Primary Care Provider Unavailable Encounter Details Date Type Department Care Team Description 11/11/2020 Treatment [facility] f Ernie Guzmán MD [address] [place] [address] [place], [place] [address] [phone] (Wo rk) Social History Tobacco Use Types Packs/Day Years Used Date Smoking Tobacco: Unknown Comments: Smoking History Info:Patient n ot screened Sex Assigned at Date Recorded Not on file documented as of this encounter Miscellaneous Notes Dialysis Note - Ernie Pompa MD - 11/11/2020 9:40 AM CDT Date: Nov 11, 2020 Patient Name: Shaun Ocampo : 1945 Chart #: [id number] Sex: M This patient was personally seen [...] AM ) BP (sit): 128/53 AP(-) / BUNGHOLE BORER: 223/184 Pulse: 75 Chairside data as of [...] 08/21/2020 Access Flow > 2000 1138 [id number] AIRCRAFT POWERPLANT REPAIRER: Ernie Pompa MD LOCATION: [place] [phone] SCHEDULE: -W- 2nd Shift ACCESS: EDW: kg. [...] for ureteral ?tumor early next month in [place]. 06/10: Doing well overall, no new complaints, [...] Went to Urgent care -> ER in [place] yesterday,CT with R hydro but no obstructive [...] (08/19/20) Vascular Access Assessment: Type of access: [email or web address]/2019 Surgeon - Lary GARDNER Access working well [...]
--- OUTSIDE RECORDS SUMMARY | 2022-02-24 13:27 | XMS_ITS | Encounter Summary ---
:1945 Author Organization [facility] Address [address] [place] [address] Care Team Providers Name Role Phone Unavailable Primary Care Provider Unavailable Encounter Details Date Type Department Care Team Description 09/23/2020 Orders Only [facility] O f Ernie Guzmán MD [address] [place] [address] [place], [place] [phone] (Wo rk) Social History Tobacco Use [...] 09/24/2020 Unless otherwise specified, test(s) performed at: [facility], [address] [place] [address] STRIPPER AND PRINTER: Alec Payan M.D. For any questions, please call customer service at FREQUENCY:MONTHLY Resulting Agency Comment Specimen source: Plasma Ernie Pompa MD LAB BLOOD ORDERABLES Performing Organization Address City/[facility]/ZIP Code Phon e Number APS [...] 09/24/2020 Unless otherwise specified, test(s) performed at: [facility], [address] [place] [address] STRIPPER AND PRINTER: Alec Payan M.D. For any questions, please call customer service at FREQUENCY:MONTHLY Resulting Agency Comment Specimen source: Blood Ernie Pompa MD LAB BLOOD ORDERABLES Performing Organization Address City/[facility] Phon e Number APS [...] BANK TEST ORDERABL ES Performing Organization Address City/[facility]/ZIP Code Phon e Number APS [...] 09/24/2020 Unless otherwise specified, test(s) performed at: [facility], [address] [place] [address] STRIPPER AND PRINTER: Alec Payan M.D. For any questions, please call customer service at FREQUENCY:MONTHLY Resulting Agency Comment Specimen source: Serum Ernie Pompa MD LAB BLOOD ORDERABLES Performing Organization Address City/State/ZIP Code Phon e Number APS SPECTRA [facility] documented in this encounter Visit Diagnoses Not on filedocumented in this encounter
--- OUTSIDE RECORDS SUMMARY | 2022-02-24 13:27 | XMS_ITS | Encounter Summary ---
:1945 Author Organization [facility] Address [address] [place] [address] Care Team Providers Name Role Phone Unavailable Primary Care Provider Unavailable Encounter Details Date Type Department Care Team Description 08/12/2020 Orders [facility] O f Ernie Guzmán MD [address] [place] [address] [place], [place] [phone] (Wo rk) Social History Tobacco Use [...] 08/13/2020 Unless otherwise specified, test(s) performed at: [facility], [address] [place] [address] EDGE SETTER: Alec Payan M.D. For any questions, please call customer service at FREQUENCY:OTHER Resulting Agency Comment Specimen source: Blood Ernie Pompa MD LAB BLOOD ORDERABLES Performing Organization Address City/State/ZIP Code Phon e Number APS SPECTRA [facility] documented in this encounter Visit Diagnoses Not on filedocumented in this encounter
--- OUTSIDE RECORDS SUMMARY | 2022-02-24 13:27 | XMS_ITS | Encounter Summary ---
:1945 Author Organization [facility] Address [address] [place] [address] Care Team Providers Name Role Phone Unavailable Primary Care Provider Unavailable Encounter Details Date Type Department Care Team Description 2020 Treatment [facility] O f Ernie Guzmán MD [address] [place] [address] [place], [place] [phone] [phone] (Wo rk) Social History Tobacco Use Types Packs/Day Years Used Date Smoking Tobacco: Unknown Comments: Smoking History Info:Patient n ot screened Sex Assigned at Date Recorded Not on file documented as of this encounter Miscellaneous Notes Dialysis Note - Ernie Pompa MD - 2020 10:59 AM CDT Date: 2020 Patient Name: Shaun Ocampo : 1945 Chart #: [id number] Sex: M This patient was personally seen for a basic visit as part of routine weekly dialysis care. A reviewof the dialysis treatment, blood pressure, estimated dry weight and recent lab values was made. These were discussed with the patient and staff as necessary. STONEWORK TRACER: Ernie Pompa MD LOCATION: [phone] SCHEDULE: M-W-F 2nd Shift ACCESS: EDW: kg. 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 06/10: Doing well overall, no new [...] Went to Urgent care -> ER in [place] yesterday,CT with R hydro but no obstructive [...] (05/20/20) Vascular Access Assessment: Type of access: Skbwuds25/2019 Surgeon - Lary GARDNER Access working well Impression and Plan No changes in prescription Discussed fluid gains, possible need for increased time on HD but he really wants to avoid more [id number]. Discussed possible need for extra treatments occasionally [...]
--- OUTSIDE RECORDS SUMMARY | 2022-02-24 13:28 | XMS_ITS | Encounter Summary ---
:1945 Author Organization [facility] Address [address] [place] [address] Care Team Providers Name Role Phone Unavailable Primary Care Provider Unavailable Encounter Details Date Type Department Care Team Description 07/22/2020 Treatment [facility] f Ernie Guzmán MD [address] [place] [address] [place], [place] [address] [phone] (Wo rk) Social History Tobacco Use Types Packs/Day Years Used Date Smoking Tobacco: Unknown Comments: Smoking History Info:Patient n ot screened Sex Assigned at Date Recorded Not on file documented as of this encounter Miscellaneous Notes Dialysis Note - Ernie Pompa MD - 07/22/2020 10:25 AM CDT Date: July 22, 2020 Patient Name: Shaun Ocampo : 1945 Chart #: [id number] Sex: M This patient was personally seen [...] AM ) BP (sit): 139/55 AP(-) / BI SPECIALIST: 262/224 Pulse: 69 Chairside data as of [...] Every 4 weeks During Dialysis 07/08/2020 07/07/2021 STEM SIZER: Ernie Pompa MD LOCATION: [phone] SCHEDULE: M-W-F 2nd Shift EDW: kg. 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 06/10: Doing well overall, no new complaints, [...] Went to Urgent care -> ER in [place] yesterday,CT with R hydro but no obstructive [...] prescription. Vascular Access Assessment Type of access: [id number]/2019 Surgeon - Lary KUMARW Access working well [...] at goal. Intact PTH is above goal. [facility] Long Term Care will adjust binders and vitamin D per [...]
--- OUTSIDE RECORDS SUMMARY | 2022-02-24 13:28 | XMS_ITS | Encounter Summary ---
:1945 Author Organization [facility] Address [address] [place] [address] Care Team Providers Name Role Phone Unavailable Primary Care Provider Unavailable Encounter Details Date Type Department Care Team Description 05/27/2020 Treatment [facility] Ernie Gómez MD [address] [place] [address] [place], [place] [phone] [phone] (Wo rk) Social History Tobacco Use Types Packs/Day Years Used Date Smoking Tobacco: Unknown Comments: Smoking History Info:Patient n ot screened Sex Assigned at Date Recorded Not on file documented as of this encounter Miscellaneous Notes Dialysis Note - Ernie Pompa MD - 05/27/2020 12:29 PM CST Date: May 27, 2020 Patient Name: Shaun Ocampo : 1945 Chart #: [id number] Sex: M This patient was personally seen [...] AM ) BP (sit): 122/55 AP(-) / CHIMNEY MECHANIC: 234/221 Pulse: 72 Chairside data as [...] Every 4 weeks During Dialysis 04/15/2020 04/14/2021 COSTUME DIRECTOR: Ernie Pompa MD LOCATION: [phone] SCHEDULE: M-W-F 2nd Shift EDW: kg. DIALYZER: [...] Went to Urgent care -> ER in [place] yesterday,CT with R hydro but no obstructive [...] He had infiltration last week, dialyzed at [facility] on Sat and went well, [...] prescription. Vascular Access Assessment Type of access: [id number]/2019 Surgeon - Lary GARDNER Access working well [...] above goal. Intact PTH is above goal. Appraisal Coordinator will adjust binders and vitamin D [...]
--- OUTSIDE RECORDS SUMMARY | 2022-02-24 13:28 | XMS_ITS | Encounter Summary ---
:1945 Author Organization [facility] Address [address] [place] [address] Care Team Providers Name Role Phone Unavailable Primary Care Provider Unavailable Encounter Details Date Type Department Care Team Description 07/22/2020 Orders Only [facility] f Ernie Guzmán MD [phone] [place] [address] [place], [place] [phone] (Wo rk) Social History Tobacco Use [...] MD LAB BLOOD ORDERABLES Performing Organization Address City/[facility]/ZIP Code Phon e Number APS SPECTRA [facility] POST CHEMISTRY (07/22/2020) athologist Signature BUN Post 12 6 - 19 APS SPECTRA Dialysis mg/dL [facility] Specimen (Source) Anatomical Collection Method Collection Time Re ceived Time Location / / Volume Laterality 07/22/2020 07/23/2020 7:39 PM CDT Narrative APS SPECTRA [facility] - 07/24/2020 Unless otherwise specified, test(s) performed at: [facility], [address] [place] [address] CONTINUING EDUCATION DEAN: Alec Payan M.D. For any questions, please call customer service at FREQUENCY:MONTHLY Resulting Agency Comment Specimen source: Plasma Ernie Pompa MD LAB BLOOD ORDERABLES Performing Organization Address City/[facility] Phon e Number APS SPECTRA [facility] IMMUNO CHEMISTRY (07/22/2020) P athologist Signature Hep B Surface Negative Negative APS SPECTRA Ag [facility] Specimen (Source) Anatomical Collection Method Collection Time Re ceived Time Location / / Volume Laterality 07/22/2020 07/23/2020 4:57 PM CDT Narrative APS SPECTRA [facility] - 07/23/2020 Unless otherwise specified, test(s) performed at: [facility], [address] [place] [address] CONTINUING EDUCATION DEAN: Alec Payan M.D. For any questions, please call customer service at FREQUENCY:MONTHLY Resulting Agency Comment Specimen source: Serum Ernie Pompa MD LAB BLOOD ORDERABLES Performing Organization Address City/State/ZIP Code Phon e Number APS SPECTRA [facility] (ABNORMAL) Spectrae Chemistry (07/22/2020) [facility] Method Time Signature BUN 58 (H) [...] 07/23/2020 Unless otherwise specified, test(s) performed at: [facility], [address] [place], [place] [id number] CONTINUING EDUCATION DEAN: Alec Payan M.D. For any questions, please call customer service at FREQUENCY:MONTHLY Resulting Agency Comment Specimen source: Serum Ernie Pompa MD LAB BLOOD ORDERABLES Performing Organization Address City/[facility] Phon e Number APS SPECTRA [facility] (ABNORMAL) Spectrae Chemistry (07/22/2020) P athologist Signature PTH 1,020 (H) 16 - 80 APS SPECTRA pg/mL [facility] Specimen (Source) Anatomical Collection Method Collection Time Re ceived Time Location / / Volume Laterality 07/22/2020 07/23/2020 3:10 PM CDT Resulting Agency Comment Specimen source: Plasma Ernie Pompa MD LAB BLOOD ORDERABLES Performing Organization Address City/[facility] Code Phon e [...] 07/23/2020 Unless otherwise specified, test(s) performed at: [facility], [address] [place] [address] CONTINUING EDUCATION DEAN: Alec Payan M.D. For any questions, please call customer service at FREQUENCY:MONTHLY Resulting Agency Comment Specimen source: Blood Ernie Pompa MD LAB BLOOD ORDERABLES Performing Organization Address City/State/ZIP Code Phon e Number APS SPECTRA [facility] documented in this encounter Visit Diagnoses Not on filedocumented in this encounter
--- OUTSIDE RECORDS SUMMARY | 2022-02-24 13:28 | XMS_ITS | Encounter Summary ---
:1945 Author Organization [facility] Address [address] [place] [address] Care Team Providers Name Role Phone Unavailable Primary Care Provider Unavailable Encounter Details Date Type Department Care Team Description 07/15/2020 Orders [facility] O f Ernie Guzmán MD [address] [place] [address] [place], [place] [phone] (Wo rk) Social History Tobacco Use [...] 07/16/2020 Unless otherwise specified, test(s) performed at: [facility], [address] [place] [address] BLUE PRINTS TRIMMER: Alec Payan M.D. For any questions, please call customer service at FREQUENCY:OTHER Resulting Agency Comment Specimen source: Blood Ernie Pompa MD LAB BLOOD ORDERABLES Performing Organization Address City/State/ZIP Code Phon e Number APS SPECTRA [facility] documented in this encounter Visit Diagnoses Not on filedocumented in this encounter
--- OUTSIDE RECORDS SUMMARY | 2022-02-24 13:28 | XMS_ITS | Encounter Summary ---
:1945 Author Organization [facility] Address [address] [place] [address] Care Team Providers Name Role Phone Unavailable Primary Care Provider Unavailable Encounter Details Date Type Department Care Team Description 05/13/2020 Orders [facility] O f Ernie Guzmán MD [address] [place] [address] [place], [place] [phone] (Wo rk) Social History Tobacco Use [...] / Volume Laterality 05/13/2020 05/14/2020 3:41 PM YARN WASHER Narrative APS SPECTRA [facility] - 05/14/2020 Unless otherwise specified, test(s) performed at: [facility], [address] [place] [address] PLYCOR OPERATOR: Alec Payan M.D. For any questions, please call customer service at FREQUENCY:OTHER Resulting Agency Comment Specimen source: Blood Ernie Pompa MD LAB BLOOD ORDERABLES Performing Organization Address City/State/ZIP Code Phon e Number APS SPECTRA [facility] documented in this encounter Visit Diagnoses Not on filedocumented in this encounter
--- OUTSIDE RECORDS SUMMARY | 2022-02-24 13:28 | XMS_ITS | Encounter Summary ---
:1945 Author Organization [facility] Address [address] [place] [address] Care Team Providers Name Role Phone Unavailable Primary Care Provider Unavailable Encounter Details Date Type Department Care Team Description 05/20/2020 Orders [facility] O f Ernie Guzmán MD [address] [place] [address] [place], [place] [phone] (Wo rk) Social History Tobacco Use [...] Volume Laterality 05/20/2020 05/21/2020 10:4 9 PM COMPUTER TECHNOLOGY TEACHER Resulting Agency Comment Specimen source: Plasma Ernie Pompa MD LAB BLOOD ORDERABLES Performing Organization Address City/[facility]/ZIP Code Phon e Number APS SPECTRA [facility] POST CHEMISTRY (05/20/2020) athologist Signature BUN Post 12 6 - 19 APS SPECTRA Dialysis mg/dL [facility] Specimen (Source) Anatomical Collection Method Collection Time Re ceived Time Location / / Volume Laterality 05/20/2020 05/21/2020 10:4 8 PM COMPUTER TECHNOLOGY TEACHER Narrative APS SPECTRA [facility] - 05/22/2020 Unless otherwise specified, test(s) performed at: [facility], [address] [place] [address] LASER ENGINEER: Alec Payan M.D. For any questions, please call customer service at FREQUENCY:MONTHLY Resulting Agency Comment Specimen source: Plasma Ernie Pompa MD LAB BLOOD ORDERABLES Performing Organization Address City/[facility]/ZIP Code Phon e Number APS SPECTRA [facility] IMMUNO CHEMISTRY (05/20/2020) athologist Signature Hep B Surface Negative Negative APS SPECTRA Ag [facility] Specimen (Source) Anatomical Collection Method Collection Time Re ceived Time Location / / Volume Laterality 05/20/2020 05/21/2020 6:17 PM COMPUTER TECHNOLOGY TEACHER Narrative APS SPECTRA [facility] - 05/22/2020 Unless otherwise specified, test(s) performed at: [facility], [address] [place] [address] LASER ENGINEER: Alec Payan M.D. For any questions, [...] / Volume Laterality 05/20/2020 05/21/2020 4:04 PM COMPUTER TECHNOLOGY TEACHER Narrative APS SPECTRA [facility] - 05/22/2020 Unless otherwise specified, test(s) performed at: [place] [address] LASER ENGINEER: Alec Payan M.D. For any questions, [...] / Volume Laterality 05/20/2020 05/21/2020 4:04 PM COMPUTER TECHNOLOGY TEACHER Narrative APS SPECTRA [facility] - 05/22/2020 Unless otherwise specified, test(s) performed at: [facility], [address] [place] [address] LASER ENGINEER: Alec Payan M.D. For any questions, please call customer service at FREQUENCY:MONTHLY Resulting Agency Comment Specimen source: Blood Ernie Pompa MD LAB BLOOD ORDERABLES Performing Organization Address City/State/ZIP Code Phon e Number APS SPECTRA [facility] (ABNORMAL) Spectrae Chemistry (05/20/2020) [facility] gist Method Time Signature BUN 56 (H) [...] / Volume Laterality 05/20/2020 05/21/2020 6:17 PM COMPUTER TECHNOLOGY TEACHER Narrative APS SPECTRA [facility] - 05/21/2020 Unless otherwise specified, test(s) performed at: [facility], [address] [place] [address] LASER ENGINEER: Alec Payan M.D. For any questions, please call customer service at FREQUENCY:MONTHLY Resulting Agency Comment Specimen source: Serum Ernie Pompa MD LAB BLOOD ORDERABLES Performing Organization Address City/State/ZIP Code Phon e Number APS SPECTRA [facility] documented in this encounter Visit Diagnoses Not on filedocumented in this encounter
--- OUTSIDE RECORDS SUMMARY | 2022-02-24 13:28 | XMS_ITS | Encounter Summary ---
:1945 Author Organization [facility] Address [address] [place] [address] Care Team Providers Name Role Phone Unavailable Primary Care Provider Unavailable Encounter Details Date Type Department Care Team Description 04/22/2020 Orders [facility] O f Ernie Guzmán MD [address] [place] [address] [place], [place] [phone] (Wo rk) Social History Tobacco Use [...] / Volume Laterality 04/22/2020 04/23/2020 7:44 PM LIFE INSURANCE ACTUARY Narrative APS SPECTRA [facility] - 04/25/2020 Unless otherwise specified, test(s) performed at: [facility], [address] [place] [address] RESEARCH HYDRAULIC ENGINEER: Alec Payan M.D. For any questions, [...] / Volume Laterality 04/22/2020 04/23/2020 3:15 PM LIFE INSURANCE ACTUARY Narrative APS SPECTRA [facility] - 04/24/2020 Unless otherwise specified, test(s) performed at: [facility], [address] [place] [address] RESEARCH HYDRAULIC ENGINEER: Alec Payan M.D. For any questions, please call customer service at FREQUENCY:MONTHLY Resulting Agency Comment Specimen source: Blood Ernie Pompa MD LAB BLOOD ORDERABLES Performing Organization Address City/[facility] Phon e Number APS SPECTRA [facility] HD KINETICS (04/22/2020) P athologist Signature % Urea 79 65 - 80 % APS SPECTRA Reduction [facility] Specimen (Source) Anatomical Collection Method Collection Time Re ceived Time Location / / Volume Laterality 04/22/2020 04/23/2020 7:45 PM LIFE INSURANCE ACTUARY Narrative APS SPECTRA [facility] - 04/24/2020 Unless otherwise specified, test(s) performed at: [facility], [address] [place] [address] RESEARCH HYDRAULIC ENGINEER: Alec Payan M.D. For any questions, please call customer service at FREQUENCY:MONTHLY Resulting Agency Comment Specimen source: Serum Ernie Pompa MD LAB BLOOD ORDERABLES Performing Organization Address City/[facility] Code Phon e [...] / Volume Laterality 04/22/2020 04/23/2020 7:44 PM LIFE INSURANCE ACTUARY Narrative APS SPECTRA [facility] - 04/24/2020 Unless otherwise specified, test(s) performed at: [facility], [address] [place] [address] RESEARCH HYDRAULIC ENGINEER: Alec Payan M.D. For any questions, [...] / Volume Laterality 04/22/2020 04/23/2020 3:15 PM LIFE INSURANCE ACTUARY Narrative APS SPECTRA [facility] - 04/24/2020 Unless otherwise specified, test(s) performed at: [facility], [address] [place] [address] RESEARCH HYDRAULIC ENGINEER: Alec Payan M.D. For any questions, [...] / Volume Laterality 04/22/2020 04/23/2020 2:14 PM LIFE INSURANCE ACTUARY Narrative APS SPECTRA [facility] - 04/23/2020 Unless otherwise specified, test(s) performed at: [facility], [address] [place] [address] RESEARCH HYDRAULIC ENGINEER: Alec Payan M.D. For any questions, please call customer service at FREQUENCY:MONTHLY Resulting Agency Comment Specimen source: Plasma Ernie Pompa MD LAB BLOOD ORDERABLES Performing Organization Address City/State/ZIP Code Phon e Number APS SPECTRA [facility] documented in this encounter Visit Diagnoses Not on filedocumented in this encounter
--- OUTSIDE RECORDS SUMMARY | 2022-02-24 13:28 | XMS_ITS | Encounter Summary ---
:1945 Author Organization [facility] Address [address] [place] [address] Care Team Providers Name Role Phone Unavailable Primary Care Provider Unavailable Encounter Details Date Type Department Care Team Description 05/27/2020 Orders [facility] O f Ernie Guzmán MD [address] [place] [address] [place], [place] [phone] (Wo rk) Social History Tobacco Use [...] / Volume Laterality 05/27/2020 05/28/2020 6:29 PM SPORTS TEACHER Narrative APS SPECTRA [facility] - 05/28/2020 Unless otherwise specified, test(s) performed at: [facility], [address] [place] [address] MOLYBDENUM STEAMER OPERATOR: Alec Payan M.D. For any questions, please call customer service at FREQUENCY:OTHER Resulting Agency Comment Specimen source: Blood Ernie Pompa MD LAB BLOOD ORDERABLES Performing Organization Address City/State/ZIP Code Phon e Number APS SPECTRA [facility] documented in this encounter Visit Diagnoses Not on filedocumented in this encounter
--- OUTSIDE RECORDS SUMMARY | 2022-02-24 13:28 | XMS_ITS | Encounter Summary ---
:1945 Author Organization [facility] Address [address] [place] [address] Care Team Providers Name Role Phone Unavailable Primary Care Provider Unavailable Encounter Details Date Type Department Care Team Description 05/06/2020 Treatment [facility] O f Ernie Guzmán MD [address] [place] [address] [place], [place] [phone] [phone] (Wo rk) Social History Tobacco Use Types Packs/Day Years Used Date Smoking Tobacco: Unknown Comments: Smoking History Info:Patient n ot screened Sex Assigned at Date Recorded Not on file documented as of this encounter Miscellaneous Notes Dialysis Note - Ernie Pompa MD - 05/06/2020 11:40 AM CST Date: May 06, 2020 Patient Name: Shaun Ocampo : 1945 Chart #: [id number] Sex: M This patient was personally seen [...] AM ) BP (sit): 108/52 AP(-) / SASH ASSEMBLER: 261/214 Pulse: 89 Chairside data as of [...] Every 4 weeks During Dialysis 04/15/2020 04/14/2021 TRANSITIONS MANAGER RN: Ernie Pompa MD LOCATION: [phone] SCHEDULE: 2nd Shift ACCESS: EDW: kg. DIALYZER: HD DURATION: NEEDLE SIZE: ANTICOAG: BATH: QB: ml/min QD: ml/min Subjective Tolerating dialysis well. Reports no trouble with access. 05/06: HD going well outside high fluid gains that continue. However, acute abd/groin pain on Monday and came off early. Had gross hematuria Monday. Went to Urgent care -> ER in [place] yesterday,CT with R hydro but no obstructive [...] (12/25/19) Vascular Access Assessment: Type of access: [id number] Surgeon - Lary GARDNER Access working well Impression and Plan No changes, stable dialysis He will monitor sx and ensure gross hematuria resolves and pain resolving over next 48hrs I will discuss with [facility] this [facility], get him in for visit, [...]
--- OUTSIDE RECORDS SUMMARY | 2022-02-24 13:28 | XMS_ITS | Encounter Summary ---
:1945 Author Organization [facility] Address [address] [place] [address] Care Team Providers Name Role Phone Unavailable Primary Care Provider Unavailable Encounter Details Date Type Department Care Team Description 04/29/2020 Orders [facility] O f Ernie Guzmán MD [address] [place] [address] [place], [place] [phone] (Wo rk) Social History Tobacco Use [...] / Volume Laterality 04/29/2020 05/01/2020 2:20 PM BEER RUNNER Narrative APS SPECTRA [facility] - 05/01/2020 Unless otherwise specified, test(s) performed at: [facility], [address] [place] [address] POT PULLER: Alec Payan M.D. For any questions, please call customer service at FREQUENCY:OTHER Resulting Agency Comment Specimen source: Blood Ernie Pompa MD LAB BLOOD ORDERABLES Performing Organization Address City/State/ZIP Code Phon e Number APS SPECTRA [facility] documented in this encounter Visit Diagnoses Not on filedocumented in this encounter
--- OUTSIDE RECORDS SUMMARY | 2022-02-24 13:28 | XMS_ITS | Encounter Summary ---
:1945 Author Organization [facility] Address [address] [place] [address] Care Team Providers Name Role Phone Unavailable Primary Care Provider Unavailable Encounter Details Date Type Department Care Team Description 07/01/2020 Treatment [facility] f Ernie Guzmán MD [address] [place] [address] [place], [place] [phone] (Wo rk) Social History Tobacco Use Types Packs/Day Years Used Date Smoking Tobacco: Unknown Comments: Smoking History Info:Patient n ot screened Sex Assigned at Date Recorded Not on file documented as of this encounter Miscellaneous Notes Dialysis Note - Ernie Pompa MD - 07/01/2020 11:18 AM CDT Date: Jul 01, 2020 Patient Name: Shaun Ocampo : 1945 Chart #: [id number] Sex: M This patient was personally seen [...] AM ) BP (sit): 115/74 AP(-) / MUTTON PUNCHER: 251/198 Pulse: 66 Chairside data as of [...] Every 2 weeks During Dialysis 06/24/2020 06/23/2021 MONITOR TECHNICIAN: Ernie Pompa MD LOCATION: [phone] SCHEDULE: M-W-F 2nd Shift EDW: kg. DIALYZER: HD DURATION: NEEDLE SIZE: ANTICOAG: BATH: QB: ml/min QD: ml/min Subjective Tolerating dialysis well. 07/01: Doing well, feels great. Big problem is fluid gains, discussed in great detail again today. 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 06/10: Doing well overall, no new complaints, [...] Went to Urgent care -> ER in [place] yesterday,CT with R hydro but no obstructive [...] prescription. Vascular Access Assessment Type of access: [id number]/2019 Surgeon - Lary KUMARW Access working well [...] at goal. Intact PTH is above goal. Trailer Chief will adjust binders and vitamin D per [...] on dialysis. Schedule UF run extra at [place] when available. Hold Hep day before and [...]
--- OUTSIDE RECORDS SUMMARY | 2022-02-24 13:28 | XMS_ITS | Encounter Summary ---
:1945 Author Organization [facility] Address [address] [place] [address] Care Team Providers Name Role Phone Unavailable Primary Care Provider Unavailable Encounter Details Date Type Department Care Team Description 07/08/2020 [facility] O f Ernie Guzmán MD [address] [place] [address] [place], [place] [phone] (Wo rk) Social History Tobacco Use [...] 07/09/2020 Unless otherwise specified, test(s) performed at: [facility], [address] [place] [address] BUTTONHOLE MAKER: Alec Payan M.D. For any questions, please call customer service at FREQUENCY:OTHER Resulting Agency Comment Specimen source: Blood Ernie Pompa MD LAB BLOOD ORDERABLES Performing Organization Address City/State/ZIP Code Phon e Number APS SPECTRA [facility] documented in this encounter Visit Diagnoses Not on filedocumented in this encounter
--- OUTSIDE RECORDS SUMMARY | 2022-02-24 13:28 | XMS_ITS | Encounter Summary ---
:1945 Author Organization [facility] Address [address] [place] [address] Care Team Providers Name Role Phone Unavailable Primary Care Provider Unavailable Encounter Details Date Type Department Care Team Description 07/29/2020 [facility] O f Ernie Guzmán MD [address] [place] [address] [place], [place] [phone] (Wo rk) Social History Tobacco Use [...] 07/30/2020 Unless otherwise specified, test(s) performed at: [email or web address], [address] [place] [address] SUSTAINABILITY PURCHASING AGENT: Alec Payan M.D. For any questions, please call customer service at FREQUENCY:OTHER Resulting Agency Comment Specimen source: Blood Ernie Pompa MD LAB BLOOD ORDERABLES Performing Organization Address City/State/ZIP Code Phon e Number APS SPECTRA [facility] documented in this encounter Visit Diagnoses Not on filedocumented in this encounter
--- OUTSIDE RECORDS SUMMARY | 2022-02-24 13:28 | XMS_ITS | Encounter Summary ---
:1945 Author Organization [facility] Address [address] [place] [address] Care Team Providers Name Role Phone Unavailable Primary Care Provider Unavailable Encounter Details Date Type Department Care Team Description 06/10/2020 Orders [facility] O f Ernie Guzmán MD [address] [place] [address] [place], [place] [phone] (Wo rk) Social History Tobacco Use [...] 06/11/2020 Unless otherwise specified, test(s) performed at: [facility], [address] [place] [address] HIM DIRECTOR: Alec Payan M.D. For any questions, please call customer service at FREQUENCY:OTHER Resulting Agency Comment Specimen source: Blood Ernie Pompa MD LAB BLOOD ORDERABLES Performing Organization Address City/State/ZIP Code Phon e Number APS SPECTRA [facility] documented in this encounter Visit Diagnoses Not on filedocumented in this encounter
--- OUTSIDE RECORDS SUMMARY | 2022-02-24 13:28 | XMS_ITS | Encounter Summary ---
:1945 Author Organization [facility] Address [address] [place] [address] Care Team Providers Name Role Phone Unavailable Primary Care Provider Unavailable Encounter Details Date Type Department Care Team Description 06/10/2020 Treatment [facility] Ernie Gómez MD [address] [place] [address] [place], [place] [phone] [phone] (Wo rk) Social History Tobacco Use Types Packs/Day Years Used Date Smoking Tobacco: Unknown Comments: Smoking History Info:Patient n ot screened Sex Assigned at Date Recorded Not on file documented as of this encounter Miscellaneous Notes Dialysis Note - Ernie Pompa MD - 06/10/2020 11:04 AM CDT Date: Jun 10, 2020 Patient Name: Shaun Ocampo : 1945 Chart #: [id number] Sex: M This patient was personally seen [...] AM ) BP (sit): 120/54 AP(-) / PHOTOGRAPHY INSTRUCTOR: 219/180 Pulse: 69 Chairside data as of [...] Every 4 weeks During Dialysis 04/15/2020 04/14/2021 SEAMER: Ernie Pompa MD LOCATION: [phone] SCHEDULE: M-W-F 2nd Shift ACCESS: EDW: kg. [...] Went to Urgent care -> ER in [place] yesterday,CT with R hydro but no obstructive [...] (03/25/20) Vascular Access Assessment: Type of access: [id number]/2019 Surgeon - Lary GARDNER Access working well [...]
--- OUTSIDE RECORDS SUMMARY | 2022-02-24 13:28 | XMS_ITS | Encounter Summary ---
:1945 Author Organization [facility] Address [address] [place] [address] Care Team Providers Name Role Phone Unavailable Primary Care Provider Unavailable Encounter Details Date Type Department Care Team Description 06/17/2020 Orders [facility] f Ernie Guzmán MD [phone] [place] [address] [place], [place] [phone] (Wo rk) Social History Tobacco Use [...] 06/18/2020 Unless otherwise specified, test(s) performed at: [address], [address] [place] [address] AGRICULTURAL SERVICE WORKER: Alec Payan M.D. For any questions, please call customer service at FREQUENCY:OTHER Resulting Agency Comment Specimen source: Blood Ernie Pompa MD LAB BLOOD ORDERABLES Performing Organization Address City/State/ZIP Code Phon e Number [facility] documented in this encounter Visit Diagnoses Not on filedocumented in this encounter
--- OUTSIDE RECORDS SUMMARY | 2022-02-24 13:28 | XMS_ITS | Encounter Summary ---
:1945 Author Organization [facility] Address [address] [place] [address] Care Team Providers Name Role Phone Unavailable Primary Care Provider Unavailable Encounter Details Date Type Department Care Team Description 07/08/2020 Treatment [facility] Ernie Gómez MD [address] [place] [address] [place], [place] [phone] [phone] (Wo rk) Social History Tobacco Use Types Packs/Day Years Used Date Smoking Tobacco: Unknown Comments: Smoking History Info:Patient n ot screened Sex Assigned at Date Recorded Not on file documented as of this encounter Miscellaneous Notes Dialysis Note - Ernie Pompa MD - 07/08/2020 9:33 AM CDT Date: Jul 08, 2020 Patient Name: Shaun Ocampo : 1945 Chart #: [id number] Sex: M This patient was personally seen [...] Flow > 1999 > 1999 > 1999 ELECTRICAL DRAFTER: Ernie Pompa MD LOCATION: [place] [phone] SCHEDULE: 2nd Shift ACCESS: EDW: kg. DIALYZER: [...] for ureteral ?tumor early next month in [place]. 06/10: Doing well overall, no new complaints, [...] Went to Urgent care -> ER in [place] yesterday,CT with R hydro but no obstructive [...] (04/22/20) Vascular Access Assessment: Type of access: [id number]/[email or web address] Surgeon - Lary GARDNER Access working well [...]
--- OUTSIDE RECORDS SUMMARY | 2022-02-24 13:28 | XMS_ITS | Encounter Summary ---
:1945 Author Organization [facility] Address [address] [place] [address] Care Team Providers Name Role Phone Unavailable Primary Care Provider Unavailable Encounter Details Date Type Department Care Team Description 06/24/2020 Orders [facility] f Ernie Guzmán MD [address] [place] [address] [place], [place] [phone] (Wo rk) Social History Tobacco Use [...] 06/26/2020 Unless otherwise specified, test(s) performed at: [facility], [address] [place] [address] MANAGER QUALITY IMPROVEMENT: Alec Payan M.D. For any questions, please call customer service at FREQUENCY:MONTHLY Resulting Agency Comment Specimen source: Plasma Ernie Pompa MD LAB BLOOD ORDERABLES Performing Organization Address City/[facility]/ZIP [facility] [...] 06/25/2020 Unless otherwise specified, test(s) performed at: [facility], [address] [place], [place] [id number] MANAGER QUALITY IMPROVEMENT: Alec Payan M.D. For any questions, please call customer service at FREQUENCY:MONTHLY Resulting Agency Comment Specimen source: Plasma Ernie Pompa MD LAB BLOOD ORDERABLES Performing Organization Address City/[facility] Phon e Number APS [...] 06/26/2020 Unless otherwise specified, test(s) performed at: [facility], [address] [place] [address] MANAGER QUALITY IMPROVEMENT: Alec Payan M.D. For any questions, please call customer service at FREQUENCY:MONTHLY Resulting Agency Comment Specimen source: Blood Ernie Pompa MD LAB BLOOD ORDERABLES Performing Organization Address City/[facility] Phon e Number [facility] IMMUNO [...] [facility] (ABNORMAL) Spectrae Chemistry (06/24/2020) [facility] Method Time Signature Ferritin 951 (H) [...] 06/25/2020 Unless otherwise specified, test(s) performed at: [facility], [address] [place] [address] MANAGER QUALITY IMPROVEMENT: Alec Payan M.D. For any questions, please call customer service at FREQUENCY:MONTHLY Resulting Agency Comment Specimen source: Serum Ernie Pompa MD LAB BLOOD ORDERABLES Performing Organization Address City/State/ZIP Code Phon e Number [facility] documented in this encounter Visit Diagnoses Not on filedocumented in this encounter
--- OUTSIDE RECORDS SUMMARY | 2022-02-24 13:29 | XMS_ITS | Encounter Summary ---
:1945 Author Organization [facility] Address [address] [place] [address] Care Team Providers Name Role Phone Unavailable Primary Care Provider Unavailable Encounter Details Date Type Department Care Team Description 01/29/2020 Orders [facility] O f Ernie Guzmán MD [address] [place] [address] [place], [place] [phone] (Wo rk) Social History Tobacco Use [...] / Volume Laterality 01/29/2020 01/30/2020 5:28 PM GLUING CREW LEADER Narrative [facility] - 01/30/2020 Unless otherwise specified, test(s) performed at: [facility], [address] [place] [address] BENCH ASSEMBLER BATTERY: Alec Payan M.D. For any questions, please [...] / Volume Laterality 01/29/2020 01/30/2020 1:32 PM GLUING CREW LEADER Narrative [facility] - 01/30/2020 Unless otherwise specified, test(s) performed at: [facility], [address] [place] [address] BENCH ASSEMBLER BATTERY: Alec Payan M.D. For any questions, please call customer service at FREQUENCY:OTHER Resulting Agency Comment Specimen source: Blood Ernie Pompa MD LAB BLOOD ORDERABLES Performing Organization Address City/State/ZIP Code Phon e Number [facility] documented in this encounter Visit Diagnoses Not on filedocumented in this encounter
--- OUTSIDE RECORDS SUMMARY | 2022-02-24 13:29 | XMS_ITS | Encounter Summary ---
:1945 Author Organization [facility] Address [address] [place] [address] Care Team Providers Name Role Phone Unavailable Primary Care Provider Unavailable Encounter Details Date Type Department Care Team Description 03/16/2020 Orders [facility] O f Ernie Guzmán MD [address] [place] [address] [place], [place] [phone] (Wo rk) Social History Tobacco Use [...] Volume Laterality 03/16/2020 03/17/2020 12:0 2 PM DENITRATOR OPERATOR Narrative [facility] - 03/17/2020 Unless otherwise specified, test(s) performed at: [facility], [address] [place] [address] SKIN DIVER: Alec Payan M.D. For any questions, please call customer service at FREQUENCY:OTHER Resulting Agency Comment Specimen source: Blood Ernie Pompa MD LAB BLOOD ORDERABLES Performing Organization Address City/State/ZIP Code Phon e Number [facility] documented in this encounter Visit Diagnoses Not on filedocumented in this encounter
--- OUTSIDE RECORDS SUMMARY | 2022-02-24 13:29 | XMS_ITS | Encounter Summary ---
:1945 Author Organization [facility] Address [address] [place] [address] Care Team Providers Name Role Phone Unavailable Primary Care Provider Unavailable Encounter Details Date Type Department Care Team Description 02/19/2020 Treatment [facility] Ernie Gómez MD [address] [place] [address] [place], [place] [phone] [phone] (Wo rk) Social History Tobacco Use Types Packs/Day Years Used Date Smoking Tobacco: Unknown Comments: Smoking History Info:Patient n ot screened Sex Assigned at Date Recorded Not on file documented as of this encounter Miscellaneous Notes Dialysis Note - Ernie Pompa MD - 02/19/2020 10:37 AM CST Date: Feb 19, 2020 Patient Name: Shaun Ocampo : 1945 Chart #: [id number] Sex: M This patient was personally seen [...] AM ) BP (sit): 104/47 AP(-) / HAND MOLD MAKER: 260/215 Pulse: 84 Chairside data as of [...] Every 4 weeks During Dialysis 02/12/2020 02/10/2021 PODIATRIC AIDE: Ernie Pompa MD LOCATION: [facility] [phone] SCHEDULE: M-W-F 2nd Shift EDW: kg. DIALYZER: [...] prescription. Vascular Access Assessment Type of access: [id number]/2019 Surgeon Annita KUMARW Access working well Anemia [...] above goal. Intact PTH is at goal. Remarketing Rep will adjust binders and vitamin D per [...]
--- OUTSIDE RECORDS SUMMARY | 2022-02-24 13:29 | XMS_ITS | Encounter Summary ---
:1945 Author Organization [facility] Address [address] [place] [address] Care Team Providers Name Role Phone Unavailable Primary Care Provider Unavailable Encounter Details Date Type Department Care Team Description 03/25/2020 Treatment [facility] f Ernie Guzmán MD [address] [place] [address] [place], [place] [phone] (Wo rk) Social History Tobacco Use Types Packs/Day Years Used Date Smoking Tobacco: Unknown Comments: Smoking History Info:Patient n ot screened Sex Assigned at Date Recorded Not on file documented as of this encounter Miscellaneous Notes Dialysis Note - Ernie Pompa MD - 03/25/2020 10:39 AM CST Date: Mar 25, 2020 Patient Name: Shaun Ocampo : 1945 Chart #: [id number] Sex: M This patient was personally seen [...] AM ) BP (sit): 115/62 AP(-) / COCKTAIL SERVER: 248/203 Pulse: 72 Chairside data as of [...] Every 4 weeks During Dialysis 03/18/2020 03/17/2021 OCCUPATIONAL HEALTH NURSE: Ernie Pompa MD LOCATION: [phone] SCHEDULE: M-W-F 2nd Shift EDW: kg. DIALYZER: [...] prescription. Vascular Access Assessment Type of access: [id number]/2019 Surgeon - Lary KUMARW Access working well [...] above goal. Intact PTH is at goal. Account Assistant will adjust binders and vitamin D [...]
--- OUTSIDE RECORDS SUMMARY | 2022-02-24 13:29 | XMS_ITS | Encounter Summary ---
:1945 Author Organization [facility] Address [address] [place] [address] Care Team Providers Name Role Phone Unavailable Primary Care Provider Unavailable Encounter Details Date Type Department Care Team Description 03/04/2020 Treatment [facility] O Ernie Gómez MD [address] [place] [address] [place], [place] [phone] (Wo rk) Social History Tobacco Use Types Packs/Day Years Used Date Smoking Tobacco: Unknown Comments: Smoking History Info:Patient n ot screened Sex Assigned at Date Recorded Not on file documented as of this encounter Miscellaneous Notes Dialysis Note - Ernie Pompa MD - 03/04/2020 9:33 AM CST Date: Mar 04, 2020 Patient Name: Shaun Ocampo : 1945 Chart #: [id number] Sex: M This patient was personally seen [...] AM ) BP (sit): 95/48 AP(-) / UNLOAD ASSOCIATE: 248/204 Pulse: 71 Chairside data as of [...] Every 4 weeks During Dialysis 02/12/2020 02/10/2021 HEEL FINISHER: Ernie Pompa MD LOCATION: [facility] [phone] SCHEDULE: M-W- 2nd Shift ACCESS: EDW: kg. [...] (07/24/19) Vascular Access Assessment: Type of access: [id number]/[email or web address] Surgeon - Lary GARDNER Access working well [...]
--- OUTSIDE RECORDS SUMMARY | 2022-02-24 13:29 | XMS_ITS | Encounter Summary ---
:1945 Author Organization [facility] Address [address] [place] [address] Care Team Providers Name Role Phone Unavailable Primary Care Provider Unavailable Encounter Details Date Type Department Care Team Description 03/25/2020 Orders [facility] O f Ernie Guzmán MD [address] [place] [address] [place], [place] [phone] (Wo rk) Social History Tobacco Use [...] Volume Laterality 03/25/2020 03/27/2020 11:1 6 AM STORE DETECTIVE Narrative [facility] - 03/30/2020 Unless otherwise specified, test(s) performed at: [facility], [address] [place] [address] LOCK CORNER MACHINE OPERATOR: Alec Payan M.D. For any [...] and its performa nce characteristics determined by [facility]. It has not been cleared or approved by the FDA. The laboratory is regulated under CLIA a s qualified to perform high complexity testing. This test is used fo r clinical purposes. It should not be regarded as investigational or fo r research. Specimen (Source) Anatomical Collection Method Collection Time Re ceived Time Location / / Volume Laterality 03/25/2020 03/26/2020 6:29 PM STORE DETECTIVE Narrative [facility] - 03/28/2020 Unless otherwise specified, test(s) performed at: [facility], [address] [place], [place] [id number] LOCK CORNER MACHINE OPERATOR: Alec Payan M.D. For any [...] Volume Laterality 03/25/2020 03/27/2020 11:1 6 AM STORE DETECTIVE Resulting Agency Comment Specimen source: Serum Ernie Leimario CAMPBELL LAB BLOOD ORDERABLES Performing Organization Address City/[facility]/ZIP Code Phon e Number [facility] HD KINETICS (03/25/2020) P athologist Signature % Urea 79 65 - 80 % [facility] Reduction [facility] Specimen (Source) Anatomical Collection Method Collection Time Re ceived Time Location / / Volume Laterality 03/25/2020 03/27/2020 11:1 7 AM STORE DETECTIVE Resulting Agency Comment Specimen source: Serum Ernie Leimario CAMPBELL LAB BLOOD ORDERABLES Performing Organization Address City/[facility]/ZIP Code Phon e Number [facility] POST CHEMISTRY (03/25/2020) P athologist Signature BUN Post 12 6 - 19 APS SPECTRA Dialysis mg/dL [facility] Specimen (Source) Anatomical Collection Method Collection Time Re ceived Time Location / / Volume Laterality 03/25/2020 03/27/2020 10:5 5 AM STORE DETECTIVE Narrative [facility] - 03/27/2020 Unless otherwise specified, test(s) performed at: [facility], [address] [place] [address] LOCK CORNER MACHINE OPERATOR: Alec Payan M.D. For any questions, please call customer service at FREQUENCY:MONTHLY Resulting Agency Comment Specimen source: Plasma Ernie Pompa MD LAB BLOOD ORDERABLES Performing Organization Address City/State/ZIP Code Phon e Number [facility]PS SPECTRA [facility] (ABNORMAL) Spectrae Chemistry (03/25/2020) [facility] Method Time Signature BUN 58 (H) [...] Volume Laterality 03/25/2020 03/27/2020 11:1 6 AM STORE DETECTIVE Narrative [facility] - 03/28/2020 Unless otherwise specified, test(s) performed at: [facility], [address] [place] [address] LOCK CORNER MACHINE OPERATOR: Alec Payan M.D. For any questions, please call customer service at FREQUENCY:MONTHLY Resulting Agency Comment Specimen source: Serum Ernie Pompa MD LAB BLOOD ORDERABLES Performing Organization Address City/[facility] Phon e Number [facility]PS SPECTRA [facility] (ABNORMAL) Spectrae Chemistry (03/25/2020) P athologist Signature PTH 828 (H) 16 - 80 [facility]PECTRA pg/mL [facility] Specimen (Source) Anatomical Collection Method Collection Time Re ceived Time Location / / Volume Laterality 03/25/2020 03/26/2020 5:05 PM STORE DETECTIVE Narrative [facility] - 03/27/2020 Unless otherwise specified, test(s) performed at: [facility], [address] [place] [address] LOCK CORNER MACHINE OPERATOR: Alec Payan M.D. For any questions, please call customer service at FREQUENCY:MONTHLY Resulting Agency Comment Specimen source: Plasma Ernie Pompa MD LAB BLOOD ORDERABLES Performing Organization Address City/[facility] Phon e Number APS [...] / Volume Laterality 03/25/2020 03/26/2020 5:05 PM STORE DETECTIVE Narrative [facility] - 03/26/2020 Unless otherwise specified, test(s) performed at: [facility], [address] [place] [address] LOCK CORNER MACHINE OPERATOR: Alec Payan M.D. For any questions, please call customer service at FREQUENCY:MONTHLY Resulting Agency Comment Specimen source: Blood Ernie Pompa MD LAB BLOOD ORDERABLES Performing Organization Address City/State/ZIP Code Phon e Number [facility] documented in this encounter Visit Diagnoses Not on filedocumented in this encounter
--- OUTSIDE RECORDS SUMMARY | 2022-02-24 13:29 | XMS_ITS | Encounter Summary ---
:1945 Author Organization [facility] Address [address] [place] [address] Care Team Providers Name Role Phone Unavailable Primary Care Provider Unavailable Encounter Details Date Type Department Care Team Description 02/05/2020 Orders [facility] O f Ernie Guzmán MD [address] [place] [address] [place], [place] [phone] (Wo rk) Social History Tobacco Use [...] Volume Laterality 02/05/2020 02/06/2020 10:4 4 AM CONTACT WORKER Narrative [facility] - 02/06/2020 Unless otherwise specified, test(s) performed at: [facility], [address] [place] [address] ELOCUTION TEACHER: Alec Payan M.D. For any questions, please call customer service at FREQUENCY:OTHER Resulting Agency Comment Specimen source: Blood Ernie Pompa MD LAB BLOOD ORDERABLES Performing Organization Address City/State/ZIP Code Phon e Number [facility] documented in this encounter Visit Diagnoses Not on filedocumented in this encounter
--- OUTSIDE RECORDS SUMMARY | 2022-02-24 13:29 | XMS_ITS | Encounter Summary ---
:1945 Author Organization [facility] Address [address] [place] [address] Care Team Providers Name Role Phone Unavailable Primary Care Provider Unavailable Encounter Details Date Type Department Care Team Description 01/22/2020 Orders [facility] O f Ernie Guzmán MD [address] [place] [address] [place], [place] [phone] (Wo rk) Social History Tobacco Use [...] / Volume Laterality 01/22/2020 01/23/2020 8:20 PM AREA SAFETY MANAGER Narrative [facility] - 01/24/2020 Unless otherwise specified, test(s) performed at: [facility], [address] [place], [place] [id number] STAFFING EXECUTIVE: Alec Payan M.D. For any questions, please [...] / Volume Laterality 01/22/2020 01/23/2020 8:13 PM AREA SAFETY MANAGER Narrative [facility] - 01/24/2020 Unless otherwise specified, test(s) performed at: [facility], [address] [place] [address] STAFFING EXECUTIVE: Alec Payan M.D. For any questions, please call customer service at FREQUENCY:MONTHLY Resulting Agency Comment Specimen source: Serum Ernie Pompa MD LAB BLOOD ORDERABLES Performing Organization Address City/[facility] Phon e Number [facility]PS S[facility]RA [facility] HD KINETICS (01/22/2020) P athologist Signature % Urea 77 65 - 80 % [facility] Reduction [facility] Specimen (Source) Anatomical Collection Method Collection Time Re ceived Time Location / / Volume Laterality 01/22/2020 01/23/2020 8:14 PM AREA SAFETY MANAGER Narrative [facility] - 01/24/2020 Unless otherwise specified, test(s) performed at: [facility], [address] [place] [address] STAFFING EXECUTIVE: Alec Payan M.D. For any questions, please [...] / Volume Laterality 01/22/2020 01/23/2020 8:13 PM AREA SAFETY MANAGER Narrative [facility] - 01/24/2020 Unless otherwise specified, test(s) performed at: [facility], [address] [place] [address] STAFFING EXECUTIVE: Alec Payan M.D. For any questions, please call customer service at FREQUENCY:MONTHLY Resulting Agency Comment Specimen source: Serum Ernie Pompa MD LAB BLOOD ORDERABLES Performing Organization Address City/[facility] Phon e Number [facility]PS S[facility]RA [facility] POST CHEMISTRY (01/22/2020) P athologist Signature BUN Post 16 6 - 19 APS SPECTRA Dialysis mg/dL [facility] Specimen (Source) Anatomical Collection Method Collection Time Re ceived Time Location / / Volume Laterality 01/22/2020 01/23/2020 1:17 PM AREA SAFETY MANAGER Narrative [facility] - 01/23/2020 Unless otherwise specified, test(s) performed at: [facility], [address] [place] [address] STAFFING EXECUTIVE: Alec Payan M.D. For any questions, please call customer service at FREQUENCY:MONTHLY Resulting Agency Comment Specimen source: Plasma Ernie Pompa MD LAB BLOOD ORDERABLES Performing Organization Address City/[facility] Phon e Number [facility] documented in this encounter Visit Diagnoses Not on filedocumented in this encounter
--- OUTSIDE RECORDS SUMMARY | 2022-02-24 13:29 | XMS_ITS | Encounter Summary ---
:1945 Author Organization [facility] Address [address] [place] [address] [address] [place] [address] Care Team Providers Name Role Phone Unavailable Primary Care Provider Unavailable Encounter Details Date Type Department Care Team Description 02/26/2020 Orders [facility] O f Ernie Guzmán MD [address] [place] [address] [place], [place] [phone] (Wo rk) Social History Tobacco Use [...] / Volume Laterality 02/26/2020 02/27/2020 2:55 PM TEMPER MILL ROLLER Narrative [facility] - 02/27/2020 Unless otherwise specified, test(s) performed at: [facility], [address] [place] [address] DATA MIGRATION LEAD: Alec Payan M.D. For any questions, please call customer service at FREQUENCY:OTHER Resulting Agency Comment Specimen source: Blood Ernie Pompa MD LAB BLOOD ORDERABLES Performing Organization Address City/State/ZIP Code Phon e Number [facility] documented in this encounter Visit Diagnoses Not on filedocumented in this encounter
--- OUTSIDE RECORDS SUMMARY | 2022-02-24 13:29 | XMS_ITS | Encounter Summary ---
:1945 Author Organization [facility] Address [address] [place] [address] Care Team Providers Name Role Phone Unavailable Primary Care Provider Unavailable Encounter Details Date Type Department Care Team Description 04/08/2020 [facility] f Ernie Guzmán MD [address] [place] [address] [place], [place] [phone] (Wo rk) Social History Tobacco Use Types Packs/Day Years Used Date Smoking Tobacco: Unknown Comments: Smoking History Info:Patient n ot screened Sex Assigned at Date Recorded Not on file documented as of this encounter Miscellaneous Notes Dialysis Note - Ernie Pompa MD - 04/08/2020 12:32 PM CST Date: Apr 08, 2020 Patient Name: Shaun Ocampo : 1945 Chart #: [id number] Sex: M This patient was personally seen [...] PM ) BP (sit): 101/53 AP(-) / PINION STAKER: 255/193 Pulse: 70 Chairside data as of [...] Every 4 weeks During Dialysis 03/18/2020 03/17/2021 AUTOMOBILE SEAT COVER INSTALLER: Ernie Pompa MD LOCATION: [phone] SCHEDULE: M-W- 2nd Shift ACCESS: EDW: kg. [...] (09/18/19) Vascular Access Assessment: Type of access: [id number]/2019 Surgeon - Lary GARDNER Access working well [...]
--- OUTSIDE RECORDS SUMMARY | 2022-02-24 13:29 | XMS_ITS | Encounter Summary ---
:1945 Author Organization [facility] Address [address] [place] [address] Care Team Providers Name Role Phone Unavailable Primary Care Provider Unavailable Encounter Details Date Type Department Care Team Description 01/15/2020 Orders [facility] f Ernie Guzmán MD [address] [place] [address] [place], [place] [phone] (Wo rk) Social History Tobacco Use [...] 01/16/2020 Unless otherwise specified, test(s) performed at: [facility], [address] [place] [address] TREE DOCTOR: Alec Payan M.D. For any questions, please call customer service at FREQUENCY:OTHER Resulting Agency Comment Specimen source: Blood Ernie Pompa MD LAB BLOOD ORDERABLES Performing Organization Address City/State/ZIP Code Phon e Number [facility] documented in this encounter Visit Diagnoses Not on filedocumented in this encounter
--- OUTSIDE RECORDS SUMMARY | 2022-02-24 13:29 | XMS_ITS | Encounter Summary ---
:1945 Author Organization [facility] Address [address] [place] [address] Care Team Providers Name Role Phone Unavailable Primary Care Provider Unavailable Encounter Details Date Type Department Care Team Description 03/09/2020 [facility] f Ernie Guzmán MD [address] [place] [address] [place], [place] [phone] (Wo rk) Social History Tobacco Use [...] athologist Signature Hepatitis B <10 mIU/mL [facility] Comment: Reference Range: <10 mIU/mL ? Non-Immune >=10 mIU/mL ?Immune The magnitude of the measured result abo ve 10 mIU/mL is not indicative of the total amount of antibody present. Custom Exception Specimen (Source) Anatomical Collection Method Collection Time Re ceived Time Location / / Volume Laterality 03/09/2020 03/10/2020 2:47 PM NONPROFIT DIRECTOR Narrative [facility] - 03/10/2020 Unless otherwise specified, test(s) performed at: [facility], [address] [place] [address] ADMINISTRATIVE ASST: Alec Payan M.D. For any questions, please [...] Volume Laterality 03/09/2020 03/10/2020 12:1 4 PM NONPROFIT DIRECTOR Narrative [facility] - 03/10/2020 Unless otherwise specified, test(s) performed at: [facility], [address] [place] [address] ADMINISTRATIVE ASST: Alec Payan M.D. For any questions, please call customer service at FREQUENCY:OTHER Resulting Agency Comment Specimen source: Blood Ernie Pompa MD LAB BLOOD ORDERABLES Performing Organization Address City/State/ZIP Code Phon e Number [facility] documented in this encounter Visit Diagnoses Not on filedocumented in this encounter
--- OUTSIDE RECORDS SUMMARY | 2022-02-24 13:29 | XMS_ITS | Encounter Summary ---
:1945 Author Organization [facility] Address [address] [place] [address] Care Team Providers Name Role Phone Unavailable Primary Care Provider Unavailable Encounter Details Date Type Department Care Team Description 02/12/2020 [facility] f Ernie Guzmán MD [address] [place] [address] [place], [place] [phone] (Wo rk) Social History Tobacco Use [...] Volume Laterality 02/12/2020 02/14/2020 12:5 9 PM PASTE THINNER Narrative [facility] - 02/14/2020 Unless otherwise specified, test(s) performed at: [facility], [address] [place] [address] PEDIATRIC NURSE: Alec Payan M.D. For any questions, please call customer service at FREQUENCY:OTHER Resulting Agency Comment Specimen source: Blood Ernie Pompa MD LAB BLOOD ORDERABLES Performing Organization Address City/State/ZIP Code Phon e Number [facility] documented in this encounter Visit Diagnoses Not on filedocumented in this encounter
--- OUTSIDE RECORDS SUMMARY | 2022-02-24 13:29 | XMS_ITS | Encounter Summary ---
:1945 Author Organization [facility] Address [address] [place] [address] Care Team Providers Name Role Phone Unavailable Primary Care Provider Unavailable Encounter Details Date Type Department Care Team Description 04/22/2020 [facility] f Ernie Guzmán MD [address] [place] [address] [place], [place] [phone] (Wo rk) Social History Tobacco Use Types Packs/Day Years Used Date Smoking Tobacco: Unknown Comments: Smoking History Info:Patient n ot screened Sex Assigned at Date Recorded Not on file documented as of this encounter Miscellaneous Notes Dialysis Note - Ernie Pompa MD - 04/22/2020 11:52 AM CST Date: Apr 22, 2020 Patient Name: Shaun Ocampo : 1945 Chart #: [id number] Sex: M This patient was personally seen [...] AM ) BP (sit): 115/64 AP(-) / DOCUMENT PHOTOGRAPHER: 258/208 Pulse: 67 Chairside data as of [...] Every 4 weeks During Dialysis 04/15/2020 04/14/2021 HYDROGEOLOGY PROFESSOR: Ernie Pompa MD LOCATION: [phone] SCHEDULE: M-W-F 2nd Shift EDW: kg. DIALYZER: [...] prescription. Vascular Access Assessment Type of access: [id number]/2019 Surgeon - Lary GARDNER Access working well [...] above goal. Intact PTH is above goal. Mechanical Maintenance Technician will adjust binders and vitamin D [...]
--- OUTSIDE RECORDS SUMMARY | 2022-02-24 13:29 | XMS_ITS | Encounter Summary ---
:1945 Author Organization [facility] Address [address] [place] [address] Care Team Providers Name Role Phone Unavailable Primary Care Provider Unavailable Encounter Details Date Type Department Care Team Description 04/15/2020 [facility] f Ernie Guzmán MD [address] [place] [address] [place], [place] [phone] (Wo rk) Social History Tobacco Use [...] / Volume Laterality 04/15/2020 04/16/2020 9:36 AM WHARF ATTENDANT Narrative [facility] - 04/16/2020 Unless otherwise specified, test(s) performed at: [facility], [address] [place] [address] READY TO WEAR DEPARTMENT MANAGER: Alec Payan M.D. For any questions, please call customer service at FREQUENCY:OTHER Resulting Agency Comment Specimen source: Blood Ernie Pompa MD LAB BLOOD ORDERABLES Performing Organization Address City/State/ZIP Code Phon e Number [facility] documented in this encounter Visit Diagnoses Not on filedocumented in this encounter
--- OUTSIDE RECORDS SUMMARY | 2022-02-24 13:29 | XMS_ITS | Encounter Summary ---
:1945 Author Organization [facility] Address [address] [place] [address] Care Team Providers Name Role Phone Unavailable Primary Care Provider Unavailable Encounter Details Date Type Department Care Team Description 04/01/2020 [facility] f Ernie Guzmán MD [address] [place] [address] [place], [place] [phone] (Wo rk) Social History Tobacco Use [...] / Volume Laterality 04/01/2020 04/02/2020 2:28 PM ANIMATOR Narrative [facility] - 04/02/2020 Unless otherwise specified, test(s) performed at: [facility], [address] [place] [address] STAFF ENGINEER: Alec Payan M.D. For any questions, please call customer service at FREQUENCY:OTHER Resulting Agency Comment Specimen source: Blood Ernie Pompa MD LAB BLOOD ORDERABLES Performing Organization Address City/State/ZIP Code Phon e Number [facility] documented in this encounter Visit Diagnoses Not on filedocumented in this encounter
--- OUTSIDE RECORDS SUMMARY | 2022-02-24 13:29 | XMS_ITS | Encounter Summary ---
:1945 Author Organization [facility] Address [address] [place] [address] Care Team Providers Name Role Phone Unavailable Primary Care Provider Unavailable Encounter Details Date Type Department Care Team Description 01/29/2020 [facility] O Ernie Gómez MD [address] [place] [address] [place], [place] [phone] [phone] (Wo rk) Social History Tobacco Use Types Packs/Day Years Used Date Smoking Tobacco: Unknown Comments: Smoking History Info:Patient n ot screened Sex Assigned at Date Recorded Not on file documented as of this encounter Miscellaneous Notes Dialysis Note - Ernie Pompa MD - 01/29/2020 9:56 AM CST Date: Jan 29, 2020 Patient Name: Shaun Ocampo : 1945 Chart #: [id number] Sex: M This patient was personally seen [...] AM ) BP (sit): 133/53 AP(-) / ROLLER GOLD LEAF: 267/328 Pulse: 71 Chairside data as of [...] Every 2 weeks During Dialysis 01/22/2020 01/20/2021 INTEGRATED CIRCUIT IC LAYOUT DESIGNER: Ernie Pompa MD LOCATION: [facility] [phone] SCHEDULE: M-W-F 2nd Shift ACCESS: EDW: kg. [...] (07/24/19) Vascular Access Assessment: Type of access: [id number]/2019 Surgeon - Lary GARDNER Access working well [...]
--- OUTSIDE RECORDS SUMMARY | 2022-02-24 13:30 | XMS_ITS | Encounter Summary ---
:1945 Author Organization [facility] Address [address] [place] [address] Care Team Providers Name Role Phone Unavailable Primary Care Provider Unavailable Encounter Details Date Type Department Care Team Description 11/20/2019 [facility] O Ernie Gómez MD [address] [place] [address] [place], [place] [phone] (Wo rk) Social History Tobacco Use Types Packs/Day Years Used Date Smoking Tobacco: Unknown Comments: Smoking History Info:Patient n ot screened Sex Assigned at Date Recorded Not on file documented as of this encounter Miscellaneous Notes Dialysis Note - Ernie Pompa MD - 11/20/2019 11:34 AM CDT Date: Nov 20, 2019 Patient Name: Shaun Ocampo : 1945 Chart #: [id number] Sex: M This patient was personally seen [...] AM ) BP (sit): 126/49 AP(-) / CLINICAL REHABILITATION AIDE: 230/186 Pulse: 64 Chairside data as of [...] 08/23/2019 Access Flow 1011 1591 > 2000 CMM OPERATOR: Ernie Pompa MD LOCATION: [place] [phone] SCHEDULE: -W- 2nd Shift EDW: kg. DIALYZER: [...] prescription. Vascular Access Assessment Type of access: [id number]/2019 Surgeon - Lary GARDNER Access working well [...] above goal. Intact PTH is below goal. Deputy Coroner Investigator will adjust binders and vitamin D per [...]
--- OUTSIDE RECORDS SUMMARY | 2022-02-24 13:30 | XMS_ITS | Encounter Summary ---
:1945 Author Organization [facility] Address [address] [place] [address] Care Team Providers Name Role Phone Unavailable Primary Care Provider Unavailable Encounter Details Date Type Department Care Team Description 11/06/2019 [facility] O Ernie Gómez MD [address] [place] [address] [place], [place] [phone] [phone] (Wo rk) Social History Tobacco Use Types Packs/Day Years Used Date Smoking Tobacco: Unknown Comments: Smoking History Info:Patient n ot screened Sex Assigned at Date Recorded Not on file documented as of this encounter Miscellaneous Notes Dialysis Note - Ernie Pompa MD - 11/06/2019 12:22 PM CDT Date: Nov 06, 2019 Patient Name: Shaun Ocampo : 1945 Chart #: [id number] Sex: M This patient was personally seen [...] PM ) BP (sit): 139/63 AP(-) / PARAEDUCATOR: 235/181 Pulse: 64 Chairside data as of [...] 1X Week During Dialysis 10/28/2019 10/19/2020 CONTRACTS INTERN: Ernie Pompa MD LOCATION: [phone] SCHEDULE: M-W- 2nd Shift EDW: kg. DIALYZER: [...] had infiltration last week, dialyzed at [facility] on Sat and went well, [...] prescription. Vascular Access Assessment Type of access: Frkubxh01/2019 Surgeon - Lary KUMARW Access working well [...] above goal. Intact PTH is below goal. Parts Counter Sales Person will adjust binders and vitamin D per [...]
--- OUTSIDE RECORDS SUMMARY | 2022-02-24 13:30 | XMS_ITS | Encounter Summary ---
:1945 Author Organization [facility] Address [address] [place] [address] Care Team Providers Name Role Phone Unavailable Primary Care Provider Unavailable Encounter Details Date Type Department Care Team Description 12/25/2019 [facility] O Ernie Gómez MD [address] [place] [address] [place], [place] [phone] (Wo rk) Social History Tobacco Use Types Packs/Day Years Used Date Smoking Tobacco: Unknown Comments: Smoking History Info:Patient n ot screened Sex Assigned at Date Recorded Not on file documented as of this encounter Miscellaneous Notes Dialysis Note - Ernie Pompa MD - 12/25/2019 11:33 AM CDT Date: Dec 25, 2019 Patient Name: Shaun Ocampo : 1945 Chart #: [id number] Sex: M This patient was personally seen [...] AM ) BP (sit): 118/50 AP(-) / NATIONAL STORMWATER LEADER: 258/222 Pulse: 64 Chairside data as of [...] Access Flow > 2000 > 2000 1011 BLACK LEATHER BUFFER: Ernie Pompa MD LOCATION: [place] [phone] SCHEDULE: M-W- 2nd Shift EDW: kg. DIALYZER: [...] prescription. Vascular Access Assessment Type of access: Xnxqoqh26/2019 Surgeon Annita KUMARW Access working well Anemia [...] above goal. Intact PTH is below goal. Attic Fans Mechanic will adjust binders and vitamin D [...]
--- OUTSIDE RECORDS SUMMARY | 2022-02-24 13:30 | XMS_ITS | Encounter Summary ---
:1945 Author Organization [facility] Address [address] [place] [address] Care Team Providers Name Role Phone Unavailable Primary Care Provider Unavailable Encounter Details Date Type Department Care Team Description 12/04/2019 [facility] O Ernie Gómez MD [address] [place] [address] [place], [place] [address] [phone] (Wo rk) Social History Tobacco Use Types Packs/Day Years Used Date Smoking Tobacco: Unknown Comments: Smoking History Info:Patient n ot screened Sex Assigned at Date Recorded Not on file documented as of this encounter Miscellaneous Notes Dialysis Note - Ernie Pompa MD - 12/04/2019 12:16 PM CDT Date: Dec 04, 2019 Patient Name: Shaun Ocampo : 1945 Chart #: [id number] Sex: M This patient was personally seen [...] Every 2 weeks During Dialysis 11/27/2019 11/25/2020 HALAL MEAT PACKER: Ernie Pompa MD LOCATION: [phone] SCHEDULE: -- 2nd Shift ACCESS: EDW: kg. [...] (06/19/19) Vascular Access Assessment: Type of access: [id number]/2019 Surgeon - Lary KUMARW Access working well Impression and Plan Discussed lowering fluid gains in more detail today Challenge EDW further if fluid gains lower after education on this Monitor Ca, still just barely above 10 despite stopping all Ca and Vit D. Ernie Pompa MD [ Signed And locked electronically On 12/04/2019 at 12:18:45 PM ] Transcribed: rEnie Pompa ( 12/04/2019 ) documented in this encounter Plan of Treatment Not on filedocumented as of this encounter Visit Diagnoses Not on filedocumented in this encounter
--- OUTSIDE RECORDS SUMMARY | 2022-02-24 13:30 | XMS_ITS | Encounter Summary ---
:1945 Author Organization [facility] Address [address] [place] [address] Care Team Providers Name Role Phone Unavailable Primary Care Provider Unavailable Encounter Details Date Type Department Care Team Description 11/06/2019 [facility] O f Ernie Guzmán MD [address] [place] [address] [place], [place] [phone] (Wo rk) Social History Tobacco Use [...] in this encounter Results (ABNORMAL) HEMATOLOGY (11/06/2019) [facility] gist Method Time Signature Neutrophils 75.2 [...] 11/07/2019 Unless otherwise specified, test(s) performed at: [facility], [address] [place] [address] SENIOR DYNAMICS CRM DEVELOPER: Alec Payan M.D. For any questions, please call customer service at FREQUENCY:OTHER Resulting Agency Comment Specimen source: Blood Ernie Pompa MD LAB BLOOD ORDERABLES Performing Organization Address City/State/ZIP Code Phon e Number [facility] documented in this encounter Visit Diagnoses Not on filedocumented in this encounter
--- OUTSIDE RECORDS SUMMARY | 2022-02-24 13:30 | XMS_ITS | Encounter Summary ---
:1945 Author Organization [facility] Address [address] [place] [address] Care Team Providers Name Role Phone Unavailable Primary Care Provider Unavailable Encounter Details Date Type Department Care Team Description 01/08/2020 [facility] O Ernie Gómez MD [address] [place] [address] [place], [place] [phone] [phone] (Wo rk) Social History Tobacco Use Types Packs/Day Years Used Date Smoking Tobacco: Unknown Comments: Smoking History Info:Patient n ot screened Sex Assigned at Date Recorded Not on file documented as of this encounter Miscellaneous Notes Dialysis Note - Ernie Pompa MD - 01/08/2020 12:11 PM CDT Date: Jan 08, 2020 Patient Name: Shaun Ocampo : 1945 Chart #: [id number] Sex: M This patient was personally seen [...] PM ) BP (sit): 118/58 AP(-) / PORTFOLIO MGR: 261/204 Pulse: 66 Chairside data as of [...] IVP 1X Week During Dialysis 10/28/2019 10/19/2020 DIE POLISHER: Ernie Pompa MD LOCATION: [phone] SCHEDULE: -W- 2nd Shift ACCESS: EDW: kg. [...] (07/24/19) Vascular Access Assessment: Type of access: Itnpiam73/2019 Surgeon - Lary GARDNER Access working well Impression and Plan No changes, stable dialysis Ernie Pompa MD [ Signed And locked electronically On 01/08/2020 at 12:12:00 PM ] Transcribed: Ernie Pompa ( 01/08/2020 ) documented in this encounter Plan of Treatment Not on filedocumented as of this encounter Visit Diagnoses Not on filedocumented in this encounter
--- OUTSIDE RECORDS SUMMARY | 2022-02-24 13:30 | XMS_ITS | Encounter Summary ---
:1945 Author Organization [facility] Address [address] [place] [address] Care Team Providers Name Role Phone Unavailable Primary Care Provider Unavailable Encounter Details Date Type Department Care Team Description 12/04/2019 [facility] O f Ernie Guzmán MD [address] [place] [address] [place], [place] [phone] (Wo rk) Social History Tobacco Use [...] 12/05/2019 Unless otherwise specified, test(s) performed at: [facility], [address] [place] [address] AGRICULTURAL EDUCATION PROFESSOR: Alec Payan M.D. For any questions, [...] 12/05/2019 Unless otherwise specified, test(s) performed at: [facility], [address] [place] [address] AGRICULTURAL EDUCATION PROFESSOR: Alec Payan M.D. For any questions, please call customer service at FREQUENCY:OTHER Resulting Agency Comment Specimen source: Blood Ernie Pompa MD LAB BLOOD ORDERABLES Performing Organization Address City/[facility] Code Phon e Number [facility] documented in this encounter Visit Diagnoses Not on filedocumented in this encounter
--- OUTSIDE RECORDS SUMMARY | 2022-02-24 13:30 | XMS_ITS | Encounter Summary ---
:1945 Author Organization [facility] Address [address] [place] [address] Care Team Providers Name Role Phone Unavailable Primary Care Provider Unavailable Encounter Details Date Type Department Care Team Description 12/18/2019 [facility] O f Ernie Guzmán MD [address] [place] [address] [place], [place] [phone] (Wo rk) Social History Tobacco Use [...] 12/19/2019 Unless otherwise specified, test(s) performed at: [facility], [address] [place] [address] SECURITY SOLUTIONS ENGINEER: Alec Payan M.D. For any questions, please call customer service at FREQUENCY:OTHER Resulting Agency Comment Specimen source: Blood Ernie Pompa MD LAB BLOOD ORDERABLES Performing Organization Address City/State/ZIP Code Phon e Number [facility] documented in this encounter Visit Diagnoses Not on filedocumented in this encounter
--- OUTSIDE RECORDS SUMMARY | 2022-02-24 13:30 | XMS_ITS | Encounter Summary ---
:1945 Author Organization [facility] Address [address] [place] [address] Care Team Providers Name Role Phone Unavailable Primary Care Provider Unavailable Encounter Details Date Type Department Care Team Description 01/08/2020 [facility] O f Ernie Guzmán MD [address] [place] [address] [place], [place] [phone] (Wo rk) Social History Tobacco Use [...] 01/09/2020 Unless otherwise specified, test(s) performed at: [facility], [address] [place] [address] MORTGAGE SERVICING SPECIALIST: Alec Payan M.D. For any questions, please call customer service at FREQUENCY:OTHER Resulting Agency Comment Specimen source: Blood Ernie Pompa MD LAB BLOOD ORDERABLES Performing Organization Address City/State/ZIP Code Phon e Number [facility] documented in this encounter Visit Diagnoses Not on filedocumented in this encounter
--- OUTSIDE RECORDS SUMMARY | 2022-02-24 13:30 | XMS_ITS | Encounter Summary ---
:1945 Author Organization [facility] Address [address] [place] [address] Care Team Providers Name Role Phone Unavailable Primary Care Provider Unavailable Encounter Details Date Type Department Care Team Description 01/01/2020 [facility] O f Ernie Guzmán MD [address] [place] [address] [place], [place] [phone] (Wo rk) Social History Tobacco Use [...] Provider LAB BLOOD ORDERABLES Performing Organization Address City/[facility]/ZIP Code Phon e Number KAMERON HD KINETICS (01/01/2020) P athologist Signature % Urea 77 65 - 80 % APS SPECTRA Reduction [facility] Specimen (Source) Anatomical Collection Method Collection Time Re ceived Time Location / / Volume Laterality 01/01/2020 01/02/2020 6:37 PM CDT Narrative APS SPECTRA [facility] - 01/02/2020 Unless otherwise specified, test(s) performed at: [facility], [address] [place] [address] SPRINKLER IRRIGATION EQUIPMENT MECHANIC: Alec Payan M.D. For any questions, please call customer service at FREQUENCY:OTHER Resulting Agency Comment Specimen source: Serum Ernie Pompa MD LAB BLOOD ORDERABLES Performing Organization Address [facility] Phon e Number APS SPECTRA [facility] (ABNORMAL) Spectrae Chemistry (01/01/2020) P athologist Signature BUN 53 (H) 6 - 19 APS SPECTRA mg/dL [facility] Specimen (Source) Anatomical Collection Method Collection Time Re ceived Time Location / / Volume Laterality 01/01/2020 01/02/2020 6:36 PM CDT Narrative APS SPECTRA [facility] - 01/02/2020 Unless otherwise specified, test(s) performed at: [facility], [address] [place], [place] [id number] SPRINKLER IRRIGATION EQUIPMENT MECHANIC: Alec Payan M.D. For any questions, please call customer service at FREQUENCY:OTHER Resulting Agency Comment Specimen source: Serum Ernie Pompa MD LAB BLOOD ORDERABLES Performing Organization Address City/[facility] Phon e [...] 01/02/2020 Unless otherwise specified, test(s) performed at: [facility], [address] [place] [address] SPRINKLER IRRIGATION EQUIPMENT MECHANIC: Alec Payan M.D. For any [...] 01/02/2020 Unless otherwise specified, test(s) performed at: [facility], [address] [place] [address] SPRINKLER IRRIGATION EQUIPMENT MECHANIC: Alec Payan M.D. For any questions, please call customer service at FREQUENCY:OTHER Resulting Agency Comment Specimen source: Plasma Ernie Pompa MD LAB BLOOD ORDERABLES Performing Organization Address City/State/[facility] Code Phon e Number APS SPECTRA [facility] documented in this encounter Visit Diagnoses Not on filedocumented in this encounter
--- OUTSIDE RECORDS SUMMARY | 2022-02-24 13:30 | XMS_ITS | Encounter Summary ---
:1945 Author Organization [facility] Address [address] [place] [address] Care Team Providers Name Role Phone Unavailable Primary Care Provider Unavailable Encounter Details Date Type Department Care Team Description 11/27/2019 [facility] O f Ernie Guzmán MD [address] [place] [address] [place], [place] [phone] (Wo rk) Social History Tobacco Use [...] in this encounter Results (ABNORMAL) HEMATOLOGY (11/27/2019) [facility] gist Method Time Signature Neutrophils 77.3 [...] 11/29/2019 Unless otherwise specified, test(s) performed at: [facility], [address] [place] [address] AGRICULTURAL LENDER: Alec Payan M.D. For any questions, please call customer service at FREQUENCY:OTHER Resulting Agency Comment Specimen source: Blood Ernie Pompa MD LAB BLOOD ORDERABLES Performing Organization Address City/State/ZIP Code Phon e Number APS SPECTRA [facility] documented in this encounter Visit Diagnoses Not on filedocumented in this encounter
--- OUTSIDE RECORDS SUMMARY | 2022-02-24 13:30 | XMS_ITS | Encounter Summary ---
:1945 Author Organization [facility] Address [address] [place] [address] Care Team Providers Name Role Phone Unavailable Primary Care Provider Unavailable Encounter Details Date Type Department Care Team Description 12/11/2019 [facility] O f Ernie Guzmán MD [address] [place] [address] [place], [place] [phone] (Wo rk) Social History Tobacco Use [...] 12/12/2019 Unless otherwise specified, test(s) performed at: [facility], [address] [place] [address] SNUFF DRIER: Alec Payan M.D. For any questions, please call customer service at FREQUENCY:OTHER Resulting Agency Comment Specimen source: Blood Ernie Pompa MD LAB BLOOD ORDERABLES Performing Organization Address City/State/ZIP Code Phon e Number APS SPECTRA [facility] documented in this encounter Visit Diagnoses Not on filedocumented in this encounter
--- OUTSIDE RECORDS SUMMARY | 2022-02-24 13:30 | XMS_ITS | Encounter Summary ---
:1945 Author Organization [facility] Address [address] [place] [address] Care Team Providers Name Role Phone Unavailable Primary Care Provider Unavailable Encounter Details Date Type Department Care Team Description 11/20/2019 Orders [facility] O f Ernie Guzmán MD [address] [place] [address] [place], [place] [phone] (Wo rk) Social History Tobacco Use [...] 11/21/2019 Unless otherwise specified, test(s) performed at: [facility], [address] [place] [address] PASSENGER TRAIN BRAKER: Alec Payan M.D. For any questions, please [...] APS SPECTRA [facility] (ABNORMAL) Spectrae Chemistry (11/20/2019[facility] Signature BUN [...] 11/21/2019 Unless otherwise specified, test(s) performed at: [facility], [address] [place] [address] PASSENGER TRAIN BRAKER: Alec Payan M.D. For any questions, please call customer service at FREQUENCY:MONTHLY Resulting Agency Comment Specimen source: Serum Ernie Pompa MD LAB BLOOD ORDERABLES Performing Organization Address City/State/ZIP Code Phon e Number APS SPECTRA [facility] (ABNORMAL) HEMATOLOGY (11/20/2019) [facility] gist Method Time Signature WBC 6.23 [...] 11/21/2019 Unless otherwise specified, test(s) performed at: [facility], [address] [place] [address] PASSENGER TRAIN BRAKER: Alec Payan M.D. For any questions, please call customer service at FREQUENCY:MONTHLY Resulting Agency Comment Specimen source: Blood Ernie Pompa MD LAB BLOOD ORDERABLES Performing Organization Address City/State/ZIP Code Phon e Number APS SPECTRA [facility] documented in this encounter Visit Diagnoses Not on filedocumented in this encounter
--- OUTSIDE RECORDS SUMMARY | 2022-02-24 13:30 | XMS_ITS | Encounter Summary ---
:1945 Author Organization [facility] Address [address] [place] [address] Care Team Providers Name Role Phone Unavailable Primary Care Provider Unavailable Encounter Details Date Type Department Care Team Description 11/13/2019 Orders [facility] O f Ernie Guzmán MD [address] [place] [address] [place], [place] [phone] (Wo rk) Social History Tobacco Use [...] 11/14/2019 Unless otherwise specified, test(s) performed at: [facility], [address] [place] [address] FINANCIAL SERVICES PROFESSIONAL: Alec Payan M.D. For any questions, [...] 11/14/2019 Unless otherwise specified, test(s) performed at: [facility], [address] [place] [address] FINANCIAL SERVICES PROFESSIONAL: Alec Payan M.D. For any questions, please call customer service at FREQUENCY:OTHER Resulting Agency Comment Specimen source: Blood Ernie Pompa MD LAB BLOOD ORDERABLES Performing Organization Address City/[facility] Phon e Number APS SPECTRA [facility] documented in this encounter Visit Diagnoses Not on filedocumented in this encounter
--- OUTSIDE RECORDS SUMMARY | 2022-02-24 13:30 | XMS_ITS | Encounter Summary ---
:1945 Author Organization [facility] Address [address] [place] [address] Care Team Providers Name Role Phone Unavailable Primary Care Provider Unavailable Encounter Details Date Type Department Care Team Description 12/25/2019 Orders [facility] O f Ernie Guzmán MD [phone] [place] [address] [place], [place] [phone] (Wo rk) Social History Tobacco Use [...] 12/27/2019 Unless otherwise specified, test(s) performed at: [facility], [address] [place] [address] SEPARATOR OPERATOR SHELLFISH MEATS: Alec Payan M.D. For any questions, please call customer service at FREQUENCY:MONTHLY Resulting Agency Comment Specimen source: Plasma Ernie Pompa MD LAB BLOOD ORDERABLES Performing Organization Address City/[facility] Phon e Number APS SPECTRA [facility] IMMUNO CHEMISTRY (12/25/2019) P athologist Signature Hep B Surface Negative Negative APS SPECTRA Ag [facility] Specimen (Source) Anatomical Collection Method Collection Time Re ceived Time Location / / Volume Laterality 12/25/2019 12/26/2019 5:50 PM CDT Narrative APS SPECTRA [facility] - 12/27/2019 Unless otherwise specified, test(s) performed at: [facility], [address] [place] [address] SEPARATOR OPERATOR SHELLFISH MEATS: Alec Payan M.D. For any questions, please call customer service at FREQUENCY:MONTHLY Resulting Agency Comment Specimen source: Serum Ernie Pompa MD LAB BLOOD ORDERABLES Performing Organization Address [facility] Phon e Number APS SPECTRA [...] 12/27/2019 Unless otherwise specified, test(s) performed at: [facility], [address] [place] [address] SEPARATOR OPERATOR SHELLFISH MEATS: Alec Payan M.D. For any questions, please call customer service at FREQUENCY:MONTHLY Resulting Agency Comment Specimen source: Plasma Ernie Pompa MD LAB BLOOD ORDERABLES Performing Organization Address City/[facility] Phon e Number APS SPECTRA [...] 12/27/2019 Unless otherwise specified, test(s) performed at: [facility], [address] [place] [address] SEPARATOR OPERATOR SHELLFISH MEATS: Alec Payan M.D. For any questions, please [...] 12/27/2019 Unless otherwise specified, test(s) performed at: [facility], [address] [place] [address] SEPARATOR OPERATOR SHELLFISH MEATS: Alec Payan M.D. For any questions, please call customer service at FREQUENCY:MONTHLY Resulting Agency Comment Specimen source: Blood Ernie Pompa MD LAB BLOOD ORDERABLES Performing Organization Address City/[facility]/ZIP Code Phon e Number APS SPECTRA [facility] documented in this encounter Visit Diagnoses Not on filedocumented in this encounter
--- OUTSIDE RECORDS SUMMARY | 2022-02-24 13:31 | XMS_ITS | Encounter Summary ---
:1945 Author Organization [facility] Address [address] [place] [address] Care Team Providers Name Role Phone Unavailable Primary Care Provider Unavailable Encounter Details Date Type Department Care Team Description 08/28/2019 [facility] O f Ernie Guzmán MD [address] [place] [address] [place], [place] [phone] (Wo rk) Social History Tobacco Use [...] 08/29/2019 Unless otherwise specified, test(s) performed at: [facility], [address] [place] [address] UNDER PRESSER: Alec Payan M.D. For any questions, please call customer service at FREQUENCY:OTHER Resulting Agency Comment Specimen source: Blood Ernie Pompa MD LAB BLOOD ORDERABLES Performing Organization Address City/State/ZIP Code Phon e Number APS SPECTRA [facility] documented in this encounter Visit Diagnoses Not on filedocumented in this encounter
--- OUTSIDE RECORDS SUMMARY | 2022-02-24 13:31 | XMS_ITS | Encounter Summary ---
:1945 Author Organization [facility] Address [address] [place] [address] Care Team Providers Name Role Phone Unavailable Primary Care Provider Unavailable Encounter Details Date Type Department Care Team Description 06/26/2019 Treatment [facility] O f Ernie Guzmán MD [address] [place] [address] [place], [place] [address] [phone] (Wo rk) Social History Tobacco Use Types Packs/Day Years Used Date Smoking Tobacco: Unknown Comments: Smoking History Info:Patient n ot screened Sex Assigned at Date Recorded Not on file documented as of this encounter Miscellaneous Notes Dialysis Note - Ernie Pompa MD - 06/26/2019 12:47 PM CDT Date: Jun 26, 2019 Patient Name: Shaun Ocampo : 1945 Chart #: [id number] Sex: M This patient was personally seen [...] PM ) BP (sit): 146/80 AP(-) / CLINICAL SCIENTIST: 248/209 Pulse: 79 Chairside data as of [...] 4:0 Actual Treatment Time 04:03 04:02 04:01 RESIDENCE LIFE COORDINATOR: Ernie Pompa MD LOCATION: [place] [phone] SCHEDULE: -W- 2nd Shift EDW: kg. DIALYZER: [...] this. Vascular Access Assessment Type of access: [id number]/2019 Surgeon - Lary GARDNER Advanced needles to [...] at goal. Intact PTH is at goal. Resort Host will adjust binders and vitamin D per [...]
--- OUTSIDE RECORDS SUMMARY | 2022-02-24 13:31 | XMS_ITS | Encounter Summary ---
:1945 Author Organization [facility] Address [address] [place] [address] Care Team Providers Name Role Phone Unavailable Primary Care Provider Unavailable Encounter Details Date Type Department Care Team Description 07/24/2019 Orders Only [facility] O f Ernie Guzmán MD [address] [place] [address] [place], [place] [phone] (Wo rk) Social History Tobacco Use [...] Provider LAB BLOOD ORDERABLES Performing Organization Address [facility] Phon e Number KAMERON (ABNORMAL) Spectrae Chemistry (07/24/2019) P athologist Signature PTH 164 (H) 16 - 80 APS SPECTRA pg/mL [facility] Specimen (Source) Anatomical Collection Method Collection Time Re ceived Time Location / / Volume Laterality 07/24/2019 07/25/2019 6:44 PM CDT Narrative APS SPECTRA [facility] - 07/26/2019 Unless otherwise specified, test(s) performed at: [facility], [address] [place] [address] SPLITTER MACHINE: Alec Payan M.D. For any questions, please call customer service at FREQUENCY:MONTHLY Resulting Agency Comment Specimen source: Plasma Ernie Pompa MD LAB BLOOD ORDERABLES Performing Organization Address [facility] Phon e Number APS SPECTRA [facility] HD KINETICS (07/24/2019) P athologist Signature % Urea 69 65 - 80 % APS SPECTRA Reduction [facility] Specimen (Source) Anatomical Collection Method Collection Time Re ceived Time Location / / Volume Laterality 07/24/2019 07/25/2019 7:05 PM CDT Narrative APS SPECTRA [facility] - 07/26/2019 Unless otherwise specified, test(s) performed at: [facility], [address] [place] [address] SPLITTER MACHINE: Alec Payan M.D. For any questions, please call customer service at FREQUENCY:MONTHLY Resulting Agency Comment Specimen source: Plasma Ernie Pompa MD LAB BLOOD ORDERABLES Performing Organization Address [facility] Phon e Number APS [...] 07/26/2019 Unless otherwise specified, test(s) performed at: [facility], [address] [place] [address] SPLITTER MACHINE: Alec Payan M.D. For any questions, [...] 07/25/2019 Unless otherwise specified, test(s) performed at: [facility], [address] [place], [place] [id number] SPLITTER MACHINE: Alec Payan M.D. For any questions, please call customer service at FREQUENCY:MONTHLY Resulting Agency Comment Specimen source: Plasma Ernie Pompa MD LAB BLOOD ORDERABLES Performing Organization Address City/[facility] Phon e Number APS [...] 07/25/2019 Unless otherwise specified, test(s) performed at: [facility], [address] [place], [place] [id number] SPLITTER MACHINE: Alec Payan M.D. For any questions, please call customer service at FREQUENCY:MONTHLY Resulting Agency Comment Specimen source: Blood Ernie Pompa MD LAB BLOOD ORDERABLES Performing Organization Address City/State/ZIP Code Phon e Number APS SPECTRA [facility] documented in this encounter Visit Diagnoses Not on filedocumented in this encounter
--- OUTSIDE RECORDS SUMMARY | 2022-02-24 13:31 | XMS_ITS | Encounter Summary ---
:1945 Author Organization [facility] Address [address] [place] [address] Care Team Providers Name Role Phone Unavailable Primary Care Provider Unavailable Encounter Details Date Type Department Care Team Description 08/28/2019 Treatment [facility] O Ernie Gómez MD [address] [place] [address] [place], [place] [address] [phone] (Wo rk) Social History Tobacco Use Types Packs/Day Years Used Date Smoking Tobacco: Unknown Comments: Smoking History Info:Patient n ot screened Sex Assigned at Date Recorded Not on file documented as of this encounter Miscellaneous Notes Dialysis Note - Ernie Pompa MD - 08/28/2019 12:51 PM CDT Date: Aug 28, 2019 Patient Name: Shaun Ocampo : 1945 Chart #: [id number] Sex: M This patient was personally seen [...] PM ) BP (sit): 147/58 AP(-) / ROAD CLEANER: 198/168 Pulse: 65 Chairside data as of [...] IVP Every Treatment During Dialysis 08/26/2019 09/16/2019 INSURANCE BILLING CLERK: Ernie Pompa MD LOCATION: [phone] SCHEDULE: -- 2nd Shift EDW: kg. DIALYZER: [...] prescription. Vascular Access Assessment Type of access: [id number]/2019 Surgeon - Lary GARDNER Access working well [...] at goal. Intact PTH is below goal. Mine Car Repairer will adjust binders and vitamin D [...]
--- OUTSIDE RECORDS SUMMARY | 2022-02-24 13:31 | XMS_ITS | Encounter Summary ---
:1945 Author Organization [facility] Address [address] [place] [address] Care Team Providers Name Role Phone Unavailable Primary Care Provider Unavailable Encounter Details Date Type Department Care Team Description 09/11/2019 Orders Only [facility] O f Ernie Guzmán MD [address] [place] [address] [place], [place] [phone] (Wo rk) Social History Tobacco Use [...] 09/13/2019 Unless otherwise specified, test(s) performed at: [facility], [address] [place] [address] FINAL INSPECTOR: Alec Payan M.D. For any questions, please call customer service at FREQUENCY:OTHER Resulting Agency Comment Specimen source: Blood Ernie Pompa MD LAB BLOOD ORDERABLES Performing Organization Address City/State/ZIP Code Phon e Number APS SPECTRA [facility] documented in this encounter Visit Diagnoses Not on filedocumented in this encounter
--- OUTSIDE RECORDS SUMMARY | 2022-02-24 13:31 | XMS_ITS | Encounter Summary ---
:1945 Author Organization [facility] Address [address] [place] [address] Care Team Providers Name Role Phone Unavailable Primary Care Provider Unavailable Encounter Details Date Type Department Care Team Description 10/02/2019 Orders Only [facility] O f Ernie Guzmán MD [address] [place] [address] [place], [place] [phone] (Wo rk) Social History Tobacco Use [...] in this encounter Results (ABNORMAL) HEMATOLOGY (10/02/2019) [facility] gist Method Time Signature Neutrophils 74.2 40.0 [...] 10/03/2019 Unless otherwise specified, test(s) performed at: [facility], [address] [place] [address] SHIFT SUPERVISOR FILM PROCESSING: Alec Payan M.D. For any questions, please call customer service at FREQUENCY:OTHER Resulting Agency Comment Specimen source: Blood Ernie Pompa MD LAB BLOOD ORDERABLES Performing Organization Address City/State/ZIP Code Phon e Number APS SPECTRA [facility] documented in this encounter Visit Diagnoses Not on filedocumented in this encounter
--- OUTSIDE RECORDS SUMMARY | 2022-02-24 13:31 | XMS_ITS | Encounter Summary ---
:1945 Author Organization [facility] Address [address] [place] [address] Care Team Providers Name Role Phone Unavailable Primary Care Provider Unavailable Encounter Details Date Type Department Care Team Description 08/14/2019 Orders [facility] O f Ernie Guzmán MD [address] [place] [address] [place], [place] [phone] (Wo rk) Social History Tobacco Use [...] 08/16/2019 Unless otherwise specified, test(s) performed at: [facility], [address] [place] [address] HR ADVISOR: Alec Payan M.D. For any questions, please call customer service at FREQUENCY:OTHER Resulting Agency Comment Specimen source: Blood Ernie Pompa MD LAB BLOOD ORDERABLES Performing Organization Address City/State/ZIP Code Phon e Number APS SPECTRA [facility] documented in this encounter Visit Diagnoses Not on filedocumented in this encounter
--- OUTSIDE RECORDS SUMMARY | 2022-02-24 13:31 | XMS_ITS | Encounter Summary ---
:1945 Author Organization [facility] Address [address] [place] [address] Care Team Providers Name Role Phone Unavailable Primary Care Provider Unavailable Encounter Details Date Type Department Care Team Description 07/17/2019 Orders Only [facility] O f Ernie Guzmán MD [address] [place] [address] [place], [place] [phone] (Wo rk) Social History Tobacco Use [...] 07/18/2019 Unless otherwise specified, test(s) performed at: [facility], [address] [place] [address] TABLEAU REPORT DEVELOPER: Alec Payan M.D. For any questions, please call customer service at FREQUENCY:OTHER Resulting Agency Comment Specimen source: Blood Ernie Pompa MD LAB BLOOD ORDERABLES Performing Organization Address City/State/ZIP Code Phon e Number APS SPECTRA [facility] documented in this encounter Visit Diagnoses Not on filedocumented in this encounter
--- OUTSIDE RECORDS SUMMARY | 2022-02-24 13:31 | XMS_ITS | Encounter Summary ---
:1945 Author Organization [facility] Address [address] [place] [address] Care Team Providers Name Role Phone Unavailable Primary Care Provider Unavailable Encounter Details Date Type Department Care Team Description 08/21/2019 Orders [facility] O f Ernie Guzmán MD [address] [place] [address] [place], [place] [phone] (Wo rk) Social History Tobacco Use [...] 08/23/2019 Unless otherwise specified, test(s) performed at: [facility], [address] [place], [place] [id number] CARRY ALL DRIVER: Alec Payan M.D. For any questions, [...] 08/23/2019 Unless otherwise specified, test(s) performed at: [facility], [address] [place] [address] CARRY ALL DRIVER: Alec Payan M.D. For any questions, please call customer service at FREQUENCY:MONTHLY Resulting Agency Comment Specimen source: Plasma Ernie Pompa MD LAB BLOOD ORDERABLES Performing Organization Address City/State/ZIP Code Phon e Number APS SPECTRA [facility] (ABNORMAL) Spectrae Chemistry (08/21/2019) [facility] Method Time Signature BUN 40 (H) [...] 08/23/2019 Unless otherwise specified, test(s) performed at: [facility], [address] [place] [address] CARRY ALL DRIVER: Alec Payan M.D. For any questions, [...] 08/22/2019 Unless otherwise specified, test(s) performed at: [facility], [address] [place] [address] CARRY ALL DRIVER: Alec Payan M.D. For any questions, please call customer service at FREQUENCY:MONTHLY Resulting Agency Comment Specimen source: Blood Ernie Pompa MD LAB BLOOD ORDERABLES Performing Organization Address City/State/ZIP Code Phon e Number APS SPECTRA [facility] documented in this encounter Visit Diagnoses Not on filedocumented in this encounter
--- OUTSIDE RECORDS SUMMARY | 2022-02-24 13:31 | XMS_ITS | Encounter Summary ---
:1945 Author Organization [facility] Address [address] [place] [address] Care Team Providers Name Role Phone Unavailable Primary Care Provider Unavailable Encounter Details Date Type Department Care Team Description 10/28/2019 Orders [facility] O f Ernie Guzmán MD [address] [place] [address] [place], [place] [phone] (Wo rk) Social History Tobacco Use [...] LAB BLOOD ORDERABLES Performing Organization Address City/[facility] Phon e Number APS SPECTRA [facility] POST CHEMISTRY (10/28/2019) P athologist Signature BUN Post 13 6 - 19 APS SPECTRA Dialysis mg/dL [facility] Specimen (Source) Anatomical Collection Method Collection Time Re ceived Time Location / / Volume Laterality 10/28/2019 10/31/2019 3:11 PM CDT Narrative APS SPECTRA [facility] - 10/31/2019 Unless otherwise specified, test(s) performed at: [facility], [address] [place] [address] TAIL PULLER: Alec Payan M.D. For any questions, please call customer service at FREQUENCY:OTHER Resulting Agency Comment Specimen source: Plasma Ernie Pompa MD LAB BLOOD ORDERABLES Performing Organization Address [facility] Phon e Number APS SPECTRA [facility] (ABNORMAL) Spectrae Chemistry (10/28/2019) P athologist Signature BUN 54 (H) 6 - 19 APS SPECTRA mg/dL [facility] Specimen (Source) Anatomical Collection Method Collection Time Re ceived Time Location / / Volume Laterality 10/28/2019 10/29/2019 4:43 PM CDT Narrative APS SPECTRA [facility] - 10/29/2019 Unless otherwise specified, test(s) performed at: [facility], [address] [place] [address] TAIL PULLER: Alec Payan M.D. For any questions, please call customer service at FREQUENCY:OTHER Resulting Agency Comment Specimen source: Serum Ernie Pompa MD LAB BLOOD ORDERABLES Performing Organization Address [facility] Phon e Number APS SPECTRA [facility] documented in this encounter Visit Diagnoses Not on filedocumented in this encounter
--- OUTSIDE RECORDS SUMMARY | 2022-02-24 13:31 | XMS_ITS | Encounter Summary ---
:1945 Author Organization [facility] Address [address] [place] [address] Care Team Providers Name Role Phone Unavailable Primary Care Provider Unavailable Encounter Details Date Type Department Care Team Description 08/07/2019 Orders [facility] O f Ernie Guzmán MD [address] [place] [address] [place], [place] [phone] (Wo rk) Social History Tobacco Use [...] 08/08/2019 Unless otherwise specified, test(s) performed at: [facility] [address] [place] [address] TOOLS DEVELOPER: Alec Payan M.D. For any questions, please call customer service at FREQUENCY:OTHER Resulting Agency Comment Specimen source: Blood Ernie Pompa MD LAB BLOOD ORDERABLES Performing Organization Address City/State/ZIP Code Phon e Number APS SPECTRA [facility] documented in this encounter Visit Diagnoses Not on filedocumented in this encounter
--- OUTSIDE RECORDS SUMMARY | 2022-02-24 13:31 | XMS_ITS | Encounter Summary ---
:1945 Author Organization [facility] Address [address] [place] [address] Care Team Providers Name Role Phone Unavailable Primary Care Provider Unavailable Encounter Details Date Type Department Care Team Description 11/04/2019 Orders [facility] O f Ernie Guzmán MD [address] [place] [address] [place], [place] [phone] (Wo rk) Social History Tobacco Use [...] in this encounter Results (ABNORMAL) HEMATOLOGY (11/04/2019) [facility] gist Method Time Signature Neutrophils 77.4 [...] 11/05/2019 Unless otherwise specified, test(s) performed at: [facility], [address] [place] [address] ELECTRICAL INTERN: Alec Payan M.D. For any questions, please call customer service at FREQUENCY:OTHER Resulting Agency Comment Specimen source: Blood Ernie Pompa MD LAB BLOOD ORDERABLES Performing Organization Address City/State/ZIP Code Phon e Number APS SPECTRA [facility] documented in this encounter Visit Diagnoses Not on filedocumented in this encounter
--- OUTSIDE RECORDS SUMMARY | 2022-02-24 13:31 | XMS_ITS | Encounter Summary ---
:1945 Author Organization [facility] Address [address] [place] [address] Care Team Providers Name Role Phone Unavailable Primary Care Provider Unavailable Encounter Details Date Type Department Care Team Description 08/07/2019 Treatment [facility] f Ernie Guzmán MD [address] [place] [address] [place], [place] [phone] (Wo rk) Social History Tobacco Use Types Packs/Day Years Used Date Smoking Tobacco: Unknown Comments: Smoking History Info:Patient n ot screened Sex Assigned at Date Recorded Not on file documented as of this encounter Miscellaneous Notes Dialysis Note - Ernie Pompa MD - 08/07/2019 5:40 PM CDT Date: August 07, 2019 Patient Name: Shaun Ocampo : 1945 Chart #: [id number] Sex: M This patient was personally seen for a complete visit as part of routine monthly dialysis care. A review of the dialysis treatment, blood pressure, estimated dry weight and recent lab values was made. These were discussed with the patient and staff as necessary. WEB CONTENT COORDINATOR: Ernie Pompa MD LOCATION: [phone] SCHEDULE: M-W-F 2nd Shift EDW: kg. DIALYZER: [...] adequacy Vascular Access Assessment Type of access: Nwxnulo26/2019 Surgeon - Lary GARDNER Access working well [...] at goal. Intact PTH is below goal. Sugar Cane Farm Manager will adjust binders and vitamin [...]
--- OUTSIDE RECORDS SUMMARY | 2022-02-24 13:31 | XMS_ITS | Encounter Summary ---
:1945 Author Organization [facility] Address [address] [place] [address] Care Team Providers Name Role Phone Unavailable Primary Care Provider Unavailable Encounter Details Date Type Department Care Team Description 06/26/2019 Orders Only [facility] O f Ernie Guzmán MD [address] [place] [address] [place], [place] [phone] (Wo rk) Social History Tobacco Use [...] 06/27/2019 Unless otherwise specified, test(s) performed at: [facility], [address] [place] [address] PULLER OVER: Alec Payan M.D. For any questions, please call customer service at FREQUENCY:OTHER Resulting Agency Comment Specimen source: Blood Ernie Pompa MD LAB BLOOD ORDERABLES Performing Organization Address City/State/ZIP Code Phon e Number APS SPECTRA [facility] documented in this encounter Visit Diagnoses Not on filedocumented in this encounter
--- OUTSIDE RECORDS SUMMARY | 2022-02-24 13:31 | XMS_ITS | Encounter Summary ---
:1945 Author Organization [facility] Address [address] [place] [address] Care Team Providers Name Role Phone Unavailable Primary Care Provider Unavailable Encounter Details Date Type Department Care Team Description 10/16/2019 Orders [facility] O f Ernie Guzmán MD [address] [place] [address] [place], [place] [phone] (Wo rk) Social History Tobacco Use [...] in this encounter Results (ABNORMAL) HEMATOLOGY (10/16/2019) [facility] gist Method Time Signature Neutrophils 74.6 [...] 10/17/2019 Unless otherwise specified, test(s) performed at: [facility], [address] [place] [address] PRODUCT DEVELOPMENT CHEMIST: Alec Payan M.D. For any questions, please call customer service at FREQUENCY:OTHER Resulting Agency Comment Specimen source: Blood Ernie Pompa MD LAB BLOOD ORDERABLES Performing Organization Address City/State/ZIP Code Phon e Number APS SPECTRA [facility] documented in this encounter Visit Diagnoses Not on filedocumented in this encounter
--- OUTSIDE RECORDS SUMMARY | 2022-02-24 13:31 | XMS_ITS | Encounter Summary ---
:1945 Author Organization [facility] Address [address] [place] [address] Care Team Providers Name Role Phone Unavailable Primary Care Provider Unavailable Encounter Details Date Type Department Care Team Description 07/10/2019 Treatment [facility] O Ernie Gómez MD [address] [place] [address] [place], [place] [address] [phone] (Wo rk) Social History Tobacco Use Types Packs/Day Years Used Date Smoking Tobacco: Unknown Comments: Smoking History Info:Patient n ot screened Sex Assigned at Date Recorded Not on file documented as of this encounter Miscellaneous Notes Dialysis Note - Ernie Pompa MD - 07/10/2019 11:42 AM CDT Date: Jul 10, 2019 Patient Name: Shaun Ocampo : 1945 Chart #: [id number] Sex: M This patient was personally seen [...] AM ) BP (sit): 136/58 AP(-) / ASSISTANT MANAGER RETAIL: n/a Pulse: 76 Chairside data as of [...] 4:0 Actual Treatment Time 04:04 04:02 04:04 BACON SKIN LIFTER: Ernie Pompa MD LOCATION: [place] [phone] SCHEDULE: M-W- 2nd Shift ACCESS: EDW: kg. [...] (05/01/19) Vascular Access Assessment: Type of access: Mioaeza12/2019 Surgeon - Lary GARDNER Advanced needles to [...]
--- OUTSIDE RECORDS SUMMARY | 2022-02-24 13:31 | XMS_ITS | Encounter Summary ---
:1945 Author Organization [facility] Address [address] [place] [address] Care Team Providers Name Role Phone Unavailable Primary Care Provider Unavailable Encounter Details Date Type Department Care Team Description 10/09/2019 Treatment [facility] O Ernie Gómez MD [address] [place] [address] [place], [place] [address] [phone] (Wo rk) Social History Tobacco Use Types Packs/Day Years Used Date Smoking Tobacco: Unknown Comments: Smoking History Info:Patient n ot screened Sex Assigned at Date Recorded Not on file documented as of this encounter Miscellaneous Notes Dialysis Note - Ernie Pompa MD - 10/09/2019 12:54 PM CDT Date: Oct 09, 2019 Patient Name: Shaun Ocampo : 1945 Chart #: [id number] Sex: M This patient was personally seen [...] PM ) BP (sit): 135/54 AP(-) / AUTOMOTIVE TECHNICIAN: 204/180 Pulse: 65 Chairside data as of [...] 1000 units IVP Every Treatment 05/01/2019 04/29/2020 PLATE GAUGER: Ernie Pompa MD LOCATION: [phone] SCHEDULE: M-W- 2nd Shift ACCESS: EDW: kg. [...] had infiltration last week, dialyzed at [facility] on Sat and went well, [...] (06/19/19) Vascular Access Assessment: Type of access: Gjbwglu22/2019 Surgeon - Lary GARDNER Access working well [...]
--- OUTSIDE RECORDS SUMMARY | 2022-02-24 13:31 | XMS_ITS | Encounter Summary ---
:1945 Author Organization [facility] Address [address] [place] [address] Care Team Providers Name Role Phone Unavailable Primary Care Provider Unavailable Encounter Details Date Type Department Care Team Description 10/23/2019 Orders Only [facility] O f Ernie Guzmán MD [address] [place] [address] [place], [place] [phone] (Wo rk) Social History Tobacco Use [...] 10/25/2019 Unless otherwise specified, test(s) performed at: [facility], [address] [place] [address] MEDICINE WORKER: Alec Payan M.D. For any questions, please call customer service at FREQUENCY:MONTHLY Resulting Agency Comment Specimen source: Serum Ernie Pompa MD LAB BLOOD ORDERABLES Performing Organization Address City/State/ZIP Code Phon e Number APS SPECTRA [facility] (ABNORMAL) HEMATOLOGY (10/23/2019) [facility] gist Method Time Signature WBC 6.46 4.80 [...] 10/24/2019 Unless otherwise specified, test(s) performed at: [facility], [address] [place] [address] MEDICINE WORKER: Alec Payan M.D. For any questions, please call customer service at FREQUENCY:MONTHLY Resulting Agency Comment Specimen source: Blood Ernie Pompa MD LAB BLOOD ORDERABLES Performing Organization Address City/State/ZIP Code Phon e Number APS SPECTRA [facility] documented in this encounter Visit Diagnoses Not on filedocumented in this encounter
--- OUTSIDE RECORDS SUMMARY | 2022-02-24 13:31 | XMS_ITS | Encounter Summary ---
:1945 Author Organization [facility] Address [address] [place] [address] Care Team Providers Name Role Phone Unavailable Primary Care Provider Unavailable Encounter Details Date Type Department Care Team Description 09/18/2019 Orders Only [facility] O f Ernie Guzmán MD [address] [place] [address] [place], [place] [phone] (Wo rk) Social History Tobacco Use [...] 09/20/2019 Unless otherwise specified, test(s) performed at: [facility], [address] [place] [address] GRINDER SET UP OPERATOR: Alec Payan M.D. For [...] 09/19/2019 Unless otherwise specified, test(s) performed at: [facility], [address] [place], [place] [id number] GRINDER SET UP OPERATOR: Alec Payan M.D. For [...] MD LAB BLOOD ORDERABLES Performing Organization Address [facility] Code Phon e Number APS [...] BANK TEST ORDERABL ES Performing Organization Address City/[facility]/ZIP Code Phon [...] 09/19/2019 Unless otherwise specified, test(s) performed at: [facility], [address] [place] [address] GRINDER SET UP OPERATOR: Alec Payan M.D. For any questions, please call customer service at FREQUENCY:MONTHLY Resulting Agency Comment Specimen source: Serum Ernie Pompa MD LAB BLOOD ORDERABLES Performing Organization Address City/State/ZIP Code Phon e Number APS SPECTRA [facility] (ABNORMAL) HEMATOLOGY (09/18/2019) [facility] gist Method Time Signature WBC 5.19 [...] 09/19/2019 Unless otherwise specified, test(s) performed at: [facility], [address] [place] [address] GRINDER SET UP OPERATOR: Alec Payan M.D. For any questions, please call customer service at FREQUENCY:MONTHLY Resulting Agency Comment Specimen source: Blood Ernie Pompa MD LAB BLOOD ORDERABLES Performing Organization Address City/State/ZIP Code Phon e Number APS SPECTRA [facility] documented in this encounter Visit Diagnoses Not on filedocumented in this encounter
--- OUTSIDE RECORDS SUMMARY | 2022-02-24 13:31 | XMS_ITS | Encounter Summary ---
:1945 Author Organization [facility] Address [address] [place] [address] Care Team Providers Name Role Phone Unavailable Primary Care Provider Unavailable Encounter Details Date Type Department Care Team Description 09/11/2019 Treatment [facility] O Ernie Gómez MD [address] [place] [address] [place], [place] [address] [phone] (Wo rk) Social History Tobacco Use Types Packs/Day Years Used Date Smoking Tobacco: Unknown Comments: Smoking History Info:Patient n ot screened Sex Assigned at Date Recorded Not on file documented as of this encounter Miscellaneous Notes Dialysis Note - Ernie Pompa MD - 09/11/2019 12:23 PM CDT Date: Sep 11, 2019 Patient Name: Shaun Ocampo : 1945 Chart #: [id number] Sex: M This patient was personally seen [...] PM ) BP (sit): 149/59 AP(-) / SENIOR MATERIALS PLANNER: 209/174 Pulse: 66 Chairside data as of [...] 08/23/2019 08/02/2019 Access Flow > 2000 1510 PRE PAROLE COUNSELING AIDE: Ernie Pompa MD LOCATION: [place] [phone] SCHEDULE: -- 2nd Shift ACCESS: EDW: kg. [...] (05/01/19) Vascular Access Assessment: Type of access: Gbdsryu29/2019 Surgeon - Lary GARDNER Access working well [...]
--- OUTSIDE RECORDS SUMMARY | 2022-02-24 13:31 | XMS_ITS | Encounter Summary ---
:1945 Author Organization [facility] Address [address] [place] [address] Care Team Providers Name Role Phone Unavailable Primary Care Provider Unavailable Encounter Details Date Type Department Care Team Description 10/09/2019 Orders [facility] O f Ernie Guzmán MD [address] [place] [address] [place], [place] [phone] (Wo rk) Social History Tobacco Use [...] 10/10/2019 Unless otherwise specified, test(s) performed at: [facility], [address] [place] [address] SUPERVISOR BOILER REPAIR: Alec Payan M.D. For any questions, please call customer service at FREQUENCY:OTHER Resulting Agency Comment Specimen source: Serum Ernie Pompa MD LAB BLOOD ORDERABLES Performing Organization Address City/State/[facility] Code Phon e Number APS [...] 10/10/2019 Unless otherwise specified, test(s) performed at: [facility], [address] [place] [address] SUPERVISOR BOILER REPAIR: Alec Payan M.D. For any questions, please call customer service at FREQUENCY:OTHER Resulting Agency Comment Specimen source: Blood Ernie Pompa MD LAB BLOOD ORDERABLES Performing Organization Address City/[facility] Code Phon e Number APS SPECTRA [facility] documented in this encounter Visit Diagnoses Not on filedocumented in this encounter
--- OUTSIDE RECORDS SUMMARY | 2022-02-24 13:31 | XMS_ITS | Encounter Summary ---
:1945 Author Organization [facility] Address [address] [place] [address] Care Team Providers Name Role Phone Unavailable Primary Care Provider Unavailable Encounter Details Date Type Department Care Team Description 07/29/2019 Orders [facility] O f Ernie Guzmán MD [address] [place] [address] [place], [place] [phone] (Wo rk) Social History Tobacco Use [...] 07/30/2019 Unless otherwise specified, test(s) performed at: [facility], [address] [place] [address] UTILIZATION REVIEW RN: Alec Payan M.D. For any questions, please call customer service at FREQUENCY:OTHER Resulting Agency Comment Specimen source: Serum Ernie Pompa MD LAB BLOOD ORDERABLES Performing Organization Address City/State/ZIP Code Phon e Number APS SPECTRA [facility] documented in this encounter Visit Diagnoses Not on filedocumented in this encounter
--- OUTSIDE RECORDS SUMMARY | 2022-02-24 13:31 | XMS_ITS | Encounter Summary ---
:1945 Author Organization [facility] Address [address] [place] [address] Care Team Providers Name Role Phone Unavailable Primary Care Provider Unavailable Encounter Details Date Type Department Care Team Description 09/25/2019 Treatment [facility] O Ernie Gómez MD [address] [place] [address] [place], [place] [address] [phone] (Wo rk) Social History Tobacco Use Types Packs/Day Years Used Date Smoking Tobacco: Unknown Comments: Smoking History Info:Patient n ot screened Sex Assigned at Date Recorded Not on file documented as of this encounter Miscellaneous Notes Dialysis Note - Ernie Pompa MD - 09/25/2019 10:54 AM CDT Date: Sep 25, 2019 Patient Name: Shaun Ocampo : 1945 Chart #: [id number] Sex: M This patient was personally seen [...] AM ) BP (sit): 156/55 AP(-) / INSEAMER: 212/172 Pulse: 63 Chairside data as of [...] 08/23/2019 08/02/2019 Access Flow > 2000 1510 OVEN LABORER: Ernie Pompa MD LOCATION: [place] [phone] SCHEDULE: -- 2nd Shift EDW: kg. DIALYZER: [...] prescription. Vascular Access Assessment Type of access: Euhsujh09/2019 Surgeon Annita KUMARW Access working well Anemia [...] at goal. Intact PTH is below goal. Clinical Staff Educator will adjust binders and vitamin D per [...]
--- OUTSIDE RECORDS SUMMARY | 2022-02-24 13:31 | XMS_ITS | Encounter Summary ---
:1945 Author Organization [facility] Address [address] [place] [address] Care Team Providers Name Role Phone Unavailable Primary Care Provider Unavailable Encounter Details Date Type Department Care Team Description 09/25/2019 Orders Only [facility] O f Ernie Guzmán MD [address] [place] [address] [place], [place] [phone] (Wo rk) Social History Tobacco Use [...] in this encounter Results (ABNORMAL) HEMATOLOGY (09/25/2019) [facility] gist Method Time Signature Neutrophils 74.2 [...] 09/26/2019 Unless otherwise specified, test(s) performed at: [facility], [address] [place], [place] [id number] WATER REGISTRAR: Alec Payan M.D. For any questions, please call customer service at FREQUENCY:OTHER Resulting Agency Comment Specimen source: Blood Ernie Pompa MD LAB BLOOD ORDERABLES Performing Organization Address City/State/ZIP Code Phon e Number APS SPECTRA [facility] documented in this encounter Visit Diagnoses Not on filedocumented in this encounter
--- OUTSIDE RECORDS SUMMARY | 2022-02-24 13:31 | XMS_ITS | Encounter Summary ---
:1945 Author Organization [facility] Address [address] [place] [address] Care Team Providers Name Role Phone Unavailable Primary Care Provider Unavailable Encounter Details Date Type Department Care Team Description 07/31/2019 Orders Only [facility] O f Ernie Guzmán MD [phone] [place] [address] [place], [place] [phone] (Wo rk) Social History Tobacco Use [...] 08/01/2019 Unless otherwise specified, test(s) performed at: [facility], [address] [place] [address] MEDICAL MASSAGE THERAPIST: Alec Payan M.D. For any questions, please call customer service at FREQUENCY:OTHER Resulting Agency Comment Specimen source: Blood Ernie Pompa MD LAB BLOOD ORDERABLES Performing Organization Address City/State/ZIP Code Phon e Number APS SPECTRA [facility] documented in this encounter Visit Diagnoses Not on filedocumented in this encounter
--- OUTSIDE RECORDS SUMMARY | 2022-02-24 13:32 | XMS_ITS | Encounter Summary ---
:1945 Author Organization [facility] Address [address] [place] [address] Care Team Providers Name Role Phone Unavailable Primary Care Provider Unavailable Encounter Details Date Type Department Care Team Description 06/19/2019 Orders Only [facility] O f Ernie Guzmán MD [phone] [place] [address] [place], [place] [phone] (Wo rk) Social History Tobacco Use [...] 06/21/2019 Unless otherwise specified, test(s) performed at: [facility], [address] [place] [address] OIL WELL CABLE TOOL OPERATOR: Alec Payan M.D. For any questions, [...] 06/21/2019 Unless otherwise specified, test(s) performed at: [facility], [address] [place] [address] OIL WELL CABLE TOOL OPERATOR: Alec Payan M.D. For any questions, please call customer service at FREQUENCY:MONTHLY Resulting Agency Comment Specimen source: Serum Ernie Pompa MD LAB BLOOD ORDERABLES Performing Organization Address [facility] Phon e Number APS SPECTRA [facility] (ABNORMAL) Spectrae Chemistry (06/19/2019) P athologist Signature PTH 199 (H) 16 - 80 APS SPECTRA pg/mL [facility] Specimen (Source) Anatomical Collection Method Collection Time Re ceived Time Location / / Volume Laterality 06/19/2019 06/20/2019 3:50 PM CDT Resulting Agency Comment Specimen source: Plasma Ernie Pompa MD LAB BLOOD ORDERABLES Performing Organization Address City/[facility] Code Phon [...] 06/21/2019 Unless otherwise specified, test(s) performed at: [facility], [address] [place] [address] OIL WELL CABLE TOOL OPERATOR: Alec Payan M.D. For any questions, please call customer service at FREQUENCY:MONTHLY Resulting Agency Comment Specimen source: Blood Ernie Pompa MD LAB BLOOD ORDERABLES Performing Organization Address City/[facility] Phon e Number APS SPECTRA [facility] POST CHEMISTRY (06/19/2019) P athologist Signature BUN Post 13 6 - 19 APS SPECTRA Dialysis mg/dL [facility] Specimen (Source) Anatomical Collection Method Collection Time Re ceived Time Location / / Volume Laterality 06/19/2019 06/20/2019 5:07 PM CDT Narrative APS SPECTRA [facility] - 06/20/2019 Unless otherwise specified, test(s) performed at: [facility], [address] [place] [address] OIL WELL CABLE TOOL OPERATOR: Alec Payan M.D. For any questions, please call customer service at FREQUENCY:MONTHLY Resulting Agency Comment Specimen source: Plasma Ernie Pompa MD LAB BLOOD ORDERABLES Performing Organization Address City/[facility] Phon e Number APS SPECTRA [facility] documented in this encounter Visit Diagnoses Not on filedocumented in this encounter
--- OUTSIDE RECORDS SUMMARY | 2022-02-24 13:32 | XMS_ITS | Encounter Summary ---
:1945 Author Organization [facility] Address [address] [place] [address] Care Team Providers Name Role Phone Unavailable Primary Care Provider Unavailable Encounter Details Date Type Department Care Team Description 05/10/2019 Orders Only [facility] O f Ernie Guzmán MD [phone] [place] [address] [place], [place] [phone] (Wo rk) Social History Tobacco Use [...] / Volume Laterality 05/10/2019 05/11/2019 9:28 AM COMMERCIAL ACCOUNTANT Narrative APS SPECTRA [facility] - 05/11/2019 Unless otherwise specified, test(s) performed at: [facility], [address] [place] [address] SUCTION WORKER: Tawanna green M.D. For any questions, please call customer service at FREQUENCY:OTHER Resulting Agency Comment Specimen source: Blood Ernie Pompa MD LAB BLOOD ORDERABLES Performing Organization Address City/State/ZIP Code Phon e Number APS SPECTRA [facility] documented in this encounter Visit Diagnoses Not on filedocumented in this encounter
--- OUTSIDE RECORDS SUMMARY | 2022-02-24 13:32 | XMS_ITS | Encounter Summary ---
:1945 Author Organization [facility] Address [address] [place] [address] Care Team Providers Name Role Phone Unavailable Primary Care Provider Unavailable Encounter Details Date Type Department Care Team Description 05/29/2019 Orders Only [facility] O f Ernie Guzmán MD [phone] [place] [address] [place], [place] [phone] (Wo rk) Social History Tobacco Use [...] spKt/V 1.19 KAMERON (Daugirdas II) eKdrt/V 1.07 KAMERNO PCR 46.99 K[facility]ON Specimen (Source) Anatomical Location Collection Method / Collectio n Time Received Time / Laterality Volume 05/29/2019 05/29/2019 Kameron Ordering Provider LAB BLOOD ORDERABLES Performing Organization Address City/[facility]/ZIP [facility] Phon e Number KAMERON (ABNORMAL) HD KINETICS (05/29/2019) P athologist Signature % Urea 64 (L) 65 - 80 % APS SPECTRA Reduction [facility] Specimen (Source) Anatomical Collection Method Collection Time Re ceived Time Location / / Volume Laterality 05/29/2019 05/30/2019 6:23 PM CDT Narrative APS SPECTRA [facility] - 05/30/2019 Unless otherwise specified, test(s) performed at: [email or web address], [address] [place] [address] FLOATLIGHT POWDER MIXER: Tawanna green M.D. For any questions, please call customer service at FREQUENCY:OTHER Resulting Agency Comment Specimen source: Serum Ernie Pompa MD LAB BLOOD ORDERABLES Performing Organization Address City/[facility] Phon e Number APS [...] 05/30/2019 Unless otherwise specified, test(s) performed at: [facility], [address] [place] [address] FLOATLIGHT POWDER MIXER: Tawanna green M.D. For any questions, please call customer service at FREQUENCY:OTHER Resulting Agency Comment Specimen source: Serum Enrie Pompa MD LAB BLOOD ORDERABLES Performing Organization Address City/[facility]/ZIP [facility] Phon e Number APS SPECTRA [facility] POST CHEMISTRY (05/29/2019) P athologist Signature BUN Post 10 6 - 19 APS SPECTRA Dialysis mg/dL [facility] Specimen (Source) Anatomical Collection Method Collection Time Re ceived Time Location / / Volume Laterality 05/29/2019 05/30/2019 9:58 AM CDT Narrative APS SPECTRA [facility] - 05/30/2019 Unless otherwise specified, test(s) performed at: [email or web address], [address] [place], [place] [id number] FLOATLIGHT POWDER MIXER: Tawanna green M.D. For any questions, please call customer service at FREQUENCY:OTHER Resulting Agency Comment Specimen source: Plasma Ernie Pompa MD LAB BLOOD ORDERABLES Performing Organization Address City/[facility] Phon e Number APS [...] 05/30/2019 Unless otherwise specified, test(s) performed at: [email or web address], [address] [place], [place] [id number] FLOATLIGHT POWDER MIXER: Tawanna green M.D. For any questions, please call customer service at FREQUENCY:OTHER Resulting Agency Comment Specimen source: Blood Ernie Pompa MD LAB BLOOD ORDERABLES Performing Organization Address City/[facility] Phon e Number APS SPECTRA [facility] documented in this encounter Visit Diagnoses Not on filedocumented in this encounter
--- OUTSIDE RECORDS SUMMARY | 2022-02-24 13:32 | XMS_ITS | Continuity of Care Document ---
:1945 Author Organization [facility] Digestive [facility] Address [address] [address] [place] [address] Phone Care Team Providers Name Role Phone [...] Description For Visit Copied on Encounter [facility] No Sep- Lizz CAMPBELL Digestive [facility] Information Joce. Health [place], Endoscopy [address] [address], [address], [address], [id number], [place], [place] [id number], tel:[phone] tel:[phone] Init Hosp-da [facility] No Sep- Lizz CAMPBELL Referr ing E&m Mod Digestive [place] Information 3 Joce. Provider : [facility], Hospital 2 [address] [facility] [place], [address], Street NE, [address] [place] [address], [place], [place], [place], [address], [id number], [place], [place] [id number], , [place], tel:+ [phone]. [phone] tel: tel:[phone] Subsqt MNGI Ramon No Desean MARTIN Referring Hosp-da E&m Digestive [facility] Information 4-200 Lisa. Provider: [facility], Hosp 9 3001 [facility] Jason [place] [address], Street NE, R, [address] [place] [address], [place], [place], [address], [id number], [place], [place] [id number], [place], [place], [place]: [place]. [phone] tel: tel: [phone] Init Inpt [facility]NGI Ramon No No Referring Cons New/est Digestive [facility] Information 2200 Informat ion Provider: [facility], Hosp [address] [place] [address] Jason CAMPBELL [address], R, [address] [place] [address], [place], [address], [id number], [place], [place], tel: [phone] tel:[phone] MNGI Ramon No Nilton CAMPBELL Referring Digestive [facility] 9-200 Zaida. 3001 P rovider: [facility], [address], Cash CAMPBELL [address], [address], P, [address] [place] [facility] s, [place], [place], Street [place] [id number], [id number], [address], [place] tel: tel:+ s, [place], [phone] . tel:[phone] Subsqt MNGI Ramon No Nesset PORTFOLIO ACCOUNTANT Referring Hosp-da E&m Digestive [facility] Information 8-200 Ailyn. 30 01 Provider: [facility], Hosp [address] [place], [place] [address] [place] [address], [address], R, [address] [place] [facility] [address] s, [place], [place], [address], [id number], [id number], [place] [facility]. s, [place], tel: tel:[phone]. [phone] tel:[phone] Init Inpt MNGI Ramon No Cash CAMPBELL Referring Cons New/est Digestive [facility] Information 7-200 Bryan. 3001 Provider: [facility], Hosp [address] [facility], Jason CAMPBELL [address], [address], R, [address] [facility] [address] [place], [place], [place], [address], [id number], [id number], [place] [facility]. s, [place], tel: tel:[phone]. [phone] tel:[phone] Family History Family Member Type Diagnosis Age At Onset No Information Payers Payer name Insurance type Covered alliance party ID Authorization(s ) [employer] Medicare Advantage [id number] Social History Type Description Quantity Date Captured [...]
--- OUTSIDE RECORDS SUMMARY | 2022-02-24 13:32 | XMS_ITS | Encounter Summary ---
:1945 Author Organization [facility] Address [address] [place] [address] Care Team Providers Name Role Phone Unavailable Primary Care Provider Unavailable Encounter Details Date Type Department Care Team Description 05/22/2019 Treatment [facility] O Ernie Gómez MD [address] [place] [address] [place], [place] [phone] (Wo rk) Social History Tobacco Use Types Packs/Day Years Used Date Smoking Tobacco: Unknown Comments: Smoking History Info:Patient n ot screened Sex Assigned at Date Recorded Not on file documented as of this encounter Miscellaneous Notes Dialysis Note - Ernie Pompa MD - 05/22/2019 12:28 PM CST Date: May 22, 2019 Patient Name: Shaun Ocampo : 1945 Chart #: [id number] Sex: M This patient was personally seen [...] AM ) BP (sit): n/a AP(-) / PHYSICIAN IN PRIVATE PRACTICE: 231/165 Pulse: n/a Chairside data as of [...] 4:0 Actual Treatment Time 04:04 04:01 04:[address] JUSTICE: Ernie Pompa MD LOCATION: [place] [phone] SCHEDULE: -- 2nd Shift EDW: kg. DIALYZER: [...] tablet Take 1 tablet once a day Reserve Saline (sodium chloride) 0.65% drops calcitriol 0.25 [...] 800 Vascular Access Assessment Type of access: [id number]/2019 Surgeon - Lary GARDNER Advancing needles to [...] at goal. Intact PTH is at goal. [employer] Weaver will adjust binders and vitamin D per [...]
--- OUTSIDE RECORDS SUMMARY | 2022-02-24 13:32 | XMS_ITS | Encounter Summary ---
:1945 Author Organization [facility] Address [address] [place] [address] Care Team Providers Name Role Phone Unavailable Primary Care Provider Unavailable Encounter Details Date Type Department Care Team Description 05/15/2019 Treatment [facility] O Ernie Gómez MD [address] [place] [address] [place], [place] [phone] (Wo rk) Social History Tobacco Use Types Packs/Day Years Used Date Smoking Tobacco: Unknown Comments: Smoking History Info:Patient n ot screened Sex Assigned at Date Recorded Not on file documented as of this encounter Miscellaneous Notes Dialysis Note - Ernie Pompa MD - 05/15/2019 12:58 PM CST Date: May 15, 2019 Patient Name: Shaun Ocampo : 1945 Chart #: [id number] Sex: M This patient was personally seen [...] AM ) BP (sit): 148/53 AP(-) / SURG NURSE: 216/194 Pulse: 62 Chairside data as of [...] 4:0 4:0 Actual Treatment Time 04:01 04:03 FICTION AND NONFICTION PROSE WRITER: Ernie Pompa MD LOCATION: [phone] SCHEDULE: -- 2nd Shift EDW: kg. DIALYZER: [...] tablet Take 1 tablet once a day Bandera Saline (sodium chloride) 0.65% drops calcitriol 0.25 [...] away) Vascular Access Assessment Type of access: [id number]/2019 Lary GARDNER Anemia Assessment HEMOGLOBIN (G/DL) IN [...] at goal. Intact PTH is at goal. Admission Specialist will adjust binders and vitamin D [...] Name: Shaun Ocampo : 1945 Chart #: [id number] Sex: M Patient Type: ESRD Modality: Hemodialysis Residential Roofer Helper: Ernie Pompa MD Location: [phone] Schedule: -W- 2nd Shift Initial Access Date [...]
--- OUTSIDE RECORDS SUMMARY | 2022-02-24 13:32 | XMS_ITS | Encounter Summary ---
:1945 Author Organization [facility] Address [address] [place] [address] Care Team Providers Name Role Phone Unavailable Primary Care Provider Unavailable Encounter Details Date Type Department Care Team Description 05/22/2019 Orders Only [facility] O f Ernie Guzmán MD [address] [place] [address] [place], [place] [phone] (Wo rk) Social History Tobacco Use [...] Volume Laterality 05/22/2019 05/23/2019 10:5 1 PM BLACK OFF WORKER Resulting Agency Comment Specimen source: Plasma Ernie Pompa MD LAB BLOOD ORDERABLES Performing Organization Address City/State/ZIP Code Phon e Number APS SPECTRA [facility] POST CHEMISTRY (05/22/2019) athologist Signature BUN Post 13 6 - 19 APS SPECTRA Dialysis mg/dL [facility] Specimen (Source) Anatomical Collection Method Collection Time Re ceived Time Location / / Volume Laterality 05/22/2019 05/23/2019 10:5 1 PM BLACK OFF WORKER Narrative APS SPECTRA [facility] - 05/24/2019 Unless otherwise specified, test(s) performed at: [facility], [address] [place] [address] LINING MACHINE TENDER: Tawanna green M.D. For any questions, please call customer service at FREQUENCY:MONTHLY Resulting Agency Comment Specimen source: Plasma Ernie Pompa MD LAB BLOOD ORDERABLES Performing Organization Address City/[facility]/ZIP Code Phon e Number APS SPECTRA [facility] (ABNORMAL) Spectrae Chemistry (05/22/2019) [facility] Method Time Signature BUN 30 (H) [...] Volume Laterality 05/22/2019 05/23/2019 11:2 0 AM BLACK OFF WORKER Narrative APS SPECTRA [facility] - 05/23/2019 Unless otherwise specified, test(s) performed at: [facility], [address] [place] [address] LINING MACHINE TENDER: Tawanna green M.D. For any questions, please [...] Volume Laterality 05/22/2019 05/23/2019 12:4 6 PM BLACK OFF WORKER Narrative APS SPECTRA [facility] - 05/23/2019 Unless otherwise specified, test(s) performed at: [facility], [address] [place] [address] LINING MACHINE TENDER: Tawanna green M.D. For any questions, please call customer service at FREQUENCY:MONTHLY Resulting Agency Comment Specimen source: Blood Ernie Pompa MD LAB BLOOD ORDERABLES Performing Organization Address City/State/ZIP Code Phon e Number APS SPECTRA [facility] documented in this encounter Visit Diagnoses Not on filedocumented in this encounter
--- OUTSIDE RECORDS SUMMARY | 2022-02-24 13:32 | XMS_ITS | Encounter Summary ---
:1945 Author Organization [facility] Address [address] [place] [address] Care Team Providers Name Role Phone Unavailable Primary Care Provider Unavailable Encounter Details Date Type Department Care Team Description 05/15/2019 Orders Only [facility] O f Ernie Guzmán MD [address] [place] [address] [place], [place] [phone] (Wo rk) Social History Tobacco Use Types Packs/Day Years Used Date Smoking Tobacco: Unknown Comments: Smoking History Info:Patient n ot screened Sex Assigned at Date Recorded Not on file documented as of this encounter Plan of Treatment Not on filedocumented as of this encounter Procedures Procedure Name Priority Date/Time Associated Comments Diagnosis POST CHEMISTRY Routine 05/15/2019 2:24 PM Results for this MARINE FIRE FIGHTER procedure are i n the results section. HD KINETICS Routine 05/15/2019 10:08 AM Results for this MARINE FIRE FIGHTER procedure are i n the results section. HEMATOLOGY Routine 05/15/2019 10:08 AM Results for this MARINE FIRE FIGHTER procedure are i n the results section. CHEMISTRY Routine 05/15/2019 10:08 AM Results for this MARINE FIRE FIGHTER procedure are i n the results section. SPECTRA [facility] Routine 05/15/2019 Results for t his RESULTS procedure are i n the results section. documented in this encounter Results POST CHEMISTRY (05/15/2019 2:24 PM MARINE FIRE FIGHTER) P athologist Signature BUN Post APS SPECTRA Dialysis mg/dL [facility] Specimen Anatomical Collection Method Collection Time Receive d Time (Source) Location / / Volume Laterality 05/15/2019 2:24 PM 0 9:40 MARINE FIRE FIGHTER AM MARINE FIRE FIGHTER Narrative APS SPECTRA [facility] - 05/15/2019 2:[address] Unless otherwise specified, test(s) performed at: [facility], [address] [place] [address] LEAD VULCANIZING OPERATOR: Tawanna green M.D. For any questions, please call customer service at FREQUENCY:OTHER Resulting Agency Comment Specimen source: Plasma Ernie Pompa MD LAB BLOOD ORDERABLES Performing Organization Address [facility] Phon e Number APS SPECTRA [facility] (ABNORMAL) HD KINETICS (05/15/2019 10:08 AM MARINE FIRE FIGHTER) P athologist Signature % Urea 62 (L) 65 - 80 % APS SPECTRA Reduction [facility] Specimen Anatomical Collection Method Collection Time Receive d Time (Source) Location / / Volume Laterality 05/15/2019 10:08 05/16/2019 AM MARINE FIRE FIGHTER 10:07 AM MARINE FIRE FIGHTER Narrative APS SPECTRA [facility] - 05/15/2019 10:08 AM MARINE FIRE FIGHTER Unless otherwise specified, test(s) performed at: [facility], [address] [place], [place] [id number] LEAD VULCANIZING OPERATOR: Tawanna green M.D. For any questions, please call customer service at FREQUENCY:OTHER Resulting Agency Comment Specimen source: Serum Enrie Pompa MD LAB BLOOD ORDERABLES Performing Organization Address [facility] Phon e Number APS SPECTRA [facility] (ABNORMAL) Spectrae Chemistry (05/15/2019 10:08 AM MARINE FIRE FIGHTER) P athologist Signature BUN 29 (H) 6 - 19 APS SPECTRA mg/dL [facility] Specimen Anatomical Collection Method Collection Time Receive d Time (Source) Location / / Volume Laterality 05/15/2019 10:08 05/16/2019 AM MARINE FIRE FIGHTER 10:07 AM MARINE FIRE FIGHTER Narrative APS SPECTRA [facility] - 05/15/2019 10:08 AM MARINE FIRE FIGHTER Unless otherwise specified, test(s) performed at: [facility], [address] [place], [place] [id number] LEAD VULCANIZING OPERATOR: Tawanna green M.D. For any questions, please call customer service at FREQUENCY:OTHER Resulting Agency Comment Specimen source: Serum Ernie Pompa MD LAB BLOOD ORDERABLES Performing Organization Address City/[facility] Phon e Number APS SPECTRA [facility] (ABNORMAL) HEMATOLOGY (05/15/2019 10:08 AM MARINE FIRE FIGHTER) Analysis Performed At Patho logist Time Signature Hemoglobin 8.2 (L) 14.0 - APS SPECTRA 18.0 g/dL [facility] Hemoglobin x 3 24.6 (L) 42.0 - APS SPECTRA 54.0 % [facility] Specimen Anatomical Collection Method Collection Time Receive d Time (Source) Location / / Volume Laterality 05/15/2019 10:08 05/16/2019 AM MARINE FIRE FIGHTER 10:48 AM MARINE FIRE FIGHTER Narrative APS SPECTRA [facility] - 05/15/2019 10:08 AM MARINE FIRE FIGHTER Unless otherwise specified, test(s) performed at: [facility], [address] [place] [address] LEAD VULCANIZING OPERATOR: Tawanna green M.D. For any questions, please call customer service at FREQUENCY:OTHER Resulting Agency Comment Specimen source: Blood Ernie Pompa MD LAB BLOOD ORDERABLES Performing Organization Address City/[facility] Phon e Number APS SPECTRA [facility] Spectra [...]
--- OUTSIDE RECORDS SUMMARY | 2022-02-24 13:32 | XMS_ITS | Encounter Summary ---
:1945 Author Organization [facility] Address [address] [place] [address] Care Team Providers Name Role Phone Unavailable Primary Care Provider Unavailable Encounter Details Date Type Department Care Team Description 05/01/2019 Orders Only [facility] Ernie Guzmán MD [phone] [place] [address] [place], [place] [phone] (Wo rk) Social History Tobacco Use [...] above test result was obtained using Siemens Ofidiumaur XP chemiluminescent method. Results obtaine d with different assay methods or kits cannot be used interchangeably. Specimen (Source) Anatomical Collection Method Collection Time Re ceived Time Location / / Volume Laterality 05/01/2019 05/02/2019 3:03 PM SENIOR STATISTICAL PROGRAMMER Resulting Agency Comment Specimen source: Serum Ernie [...] Volume Laterality 05/01/2019 05/02/2019 3:03 PM SENIOR STATISTICAL PROGRAMMER Narrative APS SPECTRA [facility] - 05/03/2019 Unless otherwise specified, test(s) performed at: [facility], [address] [place], [place] [id number] [employer] PL[employer] OPERATIONS ENGINEER: Tawanna green M.D. For any questions, please call customer service at FREQUENCY:MONTHLY Resulting Agency Comment Specimen source: Serum Ernie Pompa MD LAB BLOOD BANK TEST ORDERABL ES Performing Organization Address City/[facility] Phon e Number APS SPECTRA [facility] (ABNORMAL) Spectrae Chemistry (05/01/2019) P athologist Signature PTH 351 (H) 16 - 80 APS SPECTRA pg/mL [facility] Specimen (Source) Anatomical Collection Method Collection Time Re ceived Time Location / / Volume Laterality 05/01/2019 05/02/2019 8:20 PM SENIOR STATISTICAL PROGRAMMER Narrative APS SPECTRA [facility] - 05/03/2019 Unless otherwise specified, test(s) performed at: [facility], [address] [place], [place] [id number] [employer] OPERATIONS ENGINEER: Tawanna green M.D. For any questions, please call customer service at FREQUENCY:MONTHLY Resulting Agency Comment Specimen source: Plasma Ernie Pompa MD LAB BLOOD ORDERABLES Performing Organization Address City/State/[facility] Phon e Number [...] Volume Laterality 05/01/2019 05/02/2019 8:20 PM SENIOR STATISTICAL PROGRAMMER Narrative APS SPECTRA [facility] - 05/03/2019 Unless otherwise specified, test(s) performed at: [facility], [address] [place] [id number] [employer] OPERATIONS ENGINEER: Tawanna green M.D. For any questions, please call customer service at FREQUENCY:MONTHLY Resulting Agency Comment Specimen source: Blood Ernie Pompa MD LAB BLOOD ORDERABLES Performing Organization Address City/[facility] Phon e Number APS SPECTRA [facility] TRACE ELEMENTS (05/01/2019) P athologist Signature Aluminum <5 0 - 10 APS SPECTRA mcg/L [facility] Comment: This test was developed and its performa nce characteristics determined by [facility]. It has not been cleared or approved by the FDA. The laboratory is regulated under CLIA a s qualified to perform high complexity testing. This test is used fo r clinical purposes. It should not be regarded as investigational or fo r research. Specimen (Source) Anatomical Collection Method Collection Time Re ceived Time Location / / Volume Laterality 05/01/2019 05/02/2019 4:05 PM SENIOR STATISTICAL PROGRAMMER Narrative APS SPECTRA [facility] - 05/02/2019 Unless otherwise specified, test(s) performed at: [facility], [address] [place] [id number] [employer] OPER[employer] ENGINEER: Tawanna green M.D. For any questions, please call customer service at FREQUENCY:MONTHLY Resulting Agency Comment Specimen source: Serum Ernie Pompa MD LAB BLOOD ORDERABLES Performing Organization Address City/[facility] Phon e Number APS SPECTRA [facility] (ABNORMAL) HD KINETICS (05/01/2019) P athologist Signature % Urea 96 (H) 65 - 80 % APS SPECTRA Reduction [facility] Specimen (Source) Anatomical Collection Method Collection Time Re ceived Time Location / / Volume Laterality 05/01/2019 05/02/2019 3:04 PM SENIOR STATISTICAL PROGRAMMER Narrative APS SPECTRA [facility] - 05/02/2019 Unless otherwise specified, test(s) performed at: [facility], [address] [id number] [employer] OPER[employer] ENGINEER: Tawanna green M.D. For any questions, please call customer service at FREQUENCY:MONTHLY Resulting Agency Comment Specimen source: Serum Ernie Pompa MD LAB BLOOD ORDERABLES Performing Organization Address City/State/ZIP Code Phon e Number APS SPECTRA [facility] (ABNORMAL) Spectrae Chemistry (05/01/2019) [facility] gist Method Time Signature BUN [...] Volume Laterality 05/01/2019 05/02/2019 3:03 PM SENIOR STATISTICAL PROGRAMMER Narrative APS SPECTRA [facility] - 05/03/2019 Unless otherwise specified, test(s) performed at: [facility], [address] [place] [id number] [employer] OPER[employer] ENGINEER: Tawanna green M.D. For any questions, [...] Laterality 05/01/2019 05/02/2019 12:5 1 PM SENIOR STATISTICAL PROGRAMMER Narrative APS SPECTRA [facility] - 05/02/2019 Unless otherwise specified, test(s) performed at: [facility], [address] [place] [id number] [employer] OPER[employer] ENGINEER: Tawanna green M.D. For any questions, please call customer service at FREQUENCY:MONTHLY Resulting Agency Comment Specimen source: Plasma Ernie Pompa MD LAB BLOOD ORDERABLES Performing Organization Address City/State/ZIP [facility] Phon e Number APS SPECTRA [facility] documented in this encounter Visit Diagnoses Not on filedocumented in this encounter
--- OUTSIDE RECORDS SUMMARY | 2022-02-24 13:32 | XMS_ITS | Encounter Summary ---
:1945 Author Organization [facility] Address [address] [place] [address] Care Team Providers Name Role Phone Unavailable Primary Care Provider Unavailable Encounter Details Date Type Department Care Team Description 06/05/2019 Treatment [facility] Ernie Guzmán MD [address] [place] [address] [place], [place] [phone] (Wo rk) Social History Tobacco Use Types Packs/Day Years Used Date Smoking Tobacco: Unknown Comments: Smoking History Info:Patient n ot screened Sex Assigned at Date Recorded Not on file documented as of this encounter Miscellaneous Notes Dialysis Note - Ernie Pompa MD - 06/05/2019 5:14 PM CDT Date: Jun 05, 2019 Patient Name: Shaun Ocampo : 1945 Chart #: [id number] Sex: M This patient was personally seen for a basic visit as part of routine weekly dialysis care. A reviewof the dialysis treatment, blood pressure, estimated dry weight and recent lab values was made. These were discussed with the patient and staff as necessary. KITCHEN BATH DESIGNER: Ernie Pompa MD LOCATION: [phone] SCHEDULE: M-W-F 2nd Shift ACCESS: EDW: kg. [...] (05/01/19) Vascular Access Assessment: Type of access: [id number] Surgeon - Lary KUMARW Advanced needles to [...]
--- OUTSIDE RECORDS SUMMARY | 2022-02-24 13:32 | XMS_ITS | Encounter Summary ---
:1945 Author Organization [facility] Address [address] [place] [address] Care Team Providers Name Role Phone Unavailable Primary Care Provider Unavailable Encounter Details Date Type Department Care Team Description 06/12/2019 Orders Only [facility] f Ernie Guzmán MD [phone] [place] [address] [place], [place] [phone] (Wo rk) Social History Tobacco Use [...] 06/13/2019 Unless otherwise specified, test(s) performed at: [facility], [address] [place] [id number] WAXING MACHINE OPERATOR HELPER: Tawanna green M.D. For any questions, please call customer service at FREQUENCY:OTHER Resulting Agency Comment Specimen source: Blood Ernie Pompa MD LAB BLOOD ORDERABLES Performing Organization Address City/State/ZIP Code Phon e Number APS SPECTRA [facility] documented in this encounter Visit Diagnoses Not on filedocumented in this encounter
--- OUTSIDE RECORDS SUMMARY | 2022-02-24 13:33 | XMS_ITS | Clinical Summary ---
:1945 Author Organization [facility] [place] [address] Care Team Providers Name Role Phone Phuc Porter MD Primary Care Provider [phone] Allergies Active Allergy Reactions Severity Noted Date [...] 06/07/2006 Medications Medication Sig Dispensed Refills Start End Date Status Date lidocaine-priloca APPLY SMALL 0 Active ine (EMLA) AMOUNT TO ACCESS 1 2.5-2.5 % cream SITE (AVF) 1 TO 2 HOURS BEFORE DIALYSIS. COVER WITH OCCLUSIVE DRESSING (SARAN WRAP) amoxicillin 4 capsules oral 4 Capsule 3 Ac tive (AMOXIL) 500 mg one hour before 1 capsuleIndication procedure. s: Need for SBE (subacute bacterial endocarditis) prophylaxis albuterol-ipratro Inhale 3 mL via 180 mL 3 Active pium (DUONEB) a nebulizer 2 (2.5-0.5 mg) in 3 every 6 hours if mL NEBULIZATION needed for solutionIndicatio Shortness of ns: Bronchospasm Breath 1st choice. fluticasone Inhale 2 Puffs 36 g 3 Act joe propion-salmetero by mouth every 2 L (ADVAIR) 115-21 12 hours. mcg/actuation inhalerIndication s: Bronchospasm pantoprazole Take 1 Tablet 90 Tablet 3 Act joe (PROTONIX) 40 mg (40 mg) by mouth 2 delayed-release once daily tabletIndications before a meal. : Chronic GERD albuterol HFA Inhale 2 Puffs 0 A ctive (PRO-AIR; by mouth every 4 VENTOLIN; hours if needed PROVENTIL) 90 for Shortness Of mcg/actuation Breath. inhaler guaiFENesin Take 1,200 mg by 0 A ctive (MUCINEX) 600 mg mouth two times Extended-Release daily. tablet allopurinoL Take 1 tablet by 90 Tablet 1 A ctive (ZYLOPRIM) 100 mg mouth once 2 tabletIndications daily. : Essential hypertension metoprolol Take 1/2 tablet 45 Tablet 1 Act joe succinate (TOPROL by mouth daily. 2 XL) 25 mg Sustained-Release tabletIndications : Essential hypertension b complex-vitamin Take 1 capsule 90 Capsule 3 Active c-folic acid 1 mg by mouth daily. 2 (Triphrocaps) 1 mg capsuleIndication s: Stage 4 chronic kidney disease (HC) sevelamer Take one tab 0 Active carbonate twice a day with 2 (RENVELA) 800 mg meals tab tabletIndications : ESRD (end stage renal disease) on dialysis (HC) aspirin chewable Take 1 Tablet 0 Active 81 mg chewable (81 mg) by mouth 2 tabletIndications or nasogastric : S/P AVR (aortic tube once daily. valve replacement) clopidogreL Take 1 Tablet 0 Acti ve (PLAVIX) 75 mg (75 mg) by mouth 2 tabletIndications every morning. : S/P AVR (aortic valve replacement) benzonatate Take 1 Capsule 0 Act joe (TESSALON) 100 mg (100 mg) by 2 capsuleIndication mouth 3 times s: RSV daily if needed (respiratory for Cough. syncytial virus infection) atorvastatin Take 1 Tablet 0 Act joe (LIPITOR) 40 mg (40 mg) by mouth 2 tabletIndications once daily. : S/P TAVR (transcatheter aortic valve replacement) fluticasone (50 Inhale 2 Sprays 48 g 3 Active mcg per to both nostrils 2 actuation) nasal two times daily. solution (FLONASE)Indicati ons: Allergic rhinitis due to pollen, unspecified seasonality melatonin 3 mg Take 1 Tablet (3 0 Active tabletIndications mg) by mouth at 2 : Insomnia, bedtime if unspecified type needed, may repeat once for Sleep. midodrine 10 mg Take 1 Tablet 0 Active tabletIndications (10 mg) by mouth 2 : ESRD (end stage before dialysis. renal disease) on dialysis (HC) sodium Apply to 0 Active chloride-aloe affected vera (AYR) nasal nostril(s) two gel times daily. blood sugar As directed once 100 Each 3 A ctive diagnostic daily. Dispense 2 (Contour Next item covered by Test Strips) pt ins. E11.9 stripIndications: NIDDM type II - Type 2 diabetes Test 1 time/day mellitus with stage 5 chronic kidney disease not on chronic dialysis, without long-term current use of insulin (HC) Midodrine HCl 10 Additional dose 0 Active mg tablet to take to 2 Dialysis. oxygen-air Oxygen for home 1 Device 0 02/04/20 Dis continued delivery systems use. Liters per 9 22 (*Med (HOME minute: 1-2 per comp lete/Regimen OXYGEN)Indication nasal cannula complete/Level s: Pulmonary HTN Continuous with of care change) (HC) portability. Length of need: 3 Months. Contour Next Test TEST ONCE DAILY 100 Each 3 Discontinued Strips 2 22 (Reorder stripIndications: (E -cancel not Type 2 diabetes sent )) mellitus with stage 5 chronic kidney disease not on chronic dialysis, without long-term current use of insulin (HC) insulin aspart, Inject 0-5 units subcutaneou s three times daily before meals. Give subcutaneous TID with meals per blood glucose (mg/dL). Don't give corrective dose for PRN, post-prandial or nocturnal glucose checks unless ordered. 3 mL 0 02/04/20 Discontinued U-100, (NOVOLOG Blood Glucose.....Dose 2 2 2 (*Med FLEXPEN) 100 <70...............See Hypoglycemia Protocol complete/Regimen unit/mL (3 mL) 70-149..........No insulin, give prandial insulin, if ordered complete/Level penIndications: 150-199........No insulin of care change) Type 2 diabetes 200-249........1 unit mellitus with 250-299........2 units other circulatory 300-349........3 units complication, 350-399........4 units without long-term 400 or greater....5 units & call MD current use of insulin (HC) Active Problems Problem Noted Date ESRD (end stage renal disease) on dialysis 12/30/2021 Depression, recurrent 10/15/2021 Primary osteoarthritis of knees, [...] atherosclerosis of unspecified type of vessel , capitan grande band or graft 04/04/2007 Overview: Angiogram/PCI 04/04/07: LAD: [...] Type 2 diabetes mellitus with circulatory disorder, wi thout long-term 02/18/2002 current use of insulin Osteoarthrosis, unspecified whether generalized or loc alized, unspecified site Heart failure with preserved ejection fraction Overview: ef 67% 02/2019 Resolved Problems Problem Noted Date Resolved Date RSV (respiratory syncytial virus infection) 12/30/2021 02/15/2022 Pneumonia due to infectious organism 12/27/2021 COPD exacerbation 12/15/2020 05/18/2021 Acute renal failure [...] upon patient's overall health. Tachycardia 10/06/2008 07/17/2020 Dyspnea 10/06/2008 02/15/2022 Atrial flutter 10/06/2008 12/15/2020 Overview: - New onset 09/25, s/p DCCV 10/07/08. Acute renal insufficiency 10/06/2008 04/17/2019 Hyponatremia 09/16/2008 04/17/2019 Postoperative Sternal Wound Infection 09/16/2008 Morbid obesity 09/03/2008 05/18/2021 Iron deficiency anemia, unspecified 08/13/2008/3 Overview: Admitted to [facility] 08/12/08 with Hgb 5.6, ferritin 5. Negative colonoscopy. 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 Reportedly negative outpatient capsule study. Chest pain, unspecified 07/17/2020 AORTIC VALVE DISORDER: Moderate to severe 07/17/2020 Overview: -Echo 03/29/07: Mild concentric LVH with normal wall motion. EF 55-60%. Marked KIERAN. Mod . CLAUS 1.3 cm sq. Mean gradient 24 mmHg. Mild CO, TI. Mild pulmonary hypertension. RVSP 39 mmHg +RAP. -S/P AVR 09/03/2008 Acute CHF 07/26/2010 Overview: -Mar 2007 admission to [facility] CKD (chronic kidney disease) stage 5, GFR less than 15 ml/mi n 02/15/2022 End stage renal disease 07/17/2020 Mitral stenosis 07/17/2020 Overview: Moderate to severe by echo 02/2019 Encounters Date Type Specialty Care Team Description 02/17/2022 Refill Herman Figueredo Refill Request MD Russ (Midodrine Hcl) 02/15/2022 Office Visit [facility] F/ U (Lizzie GARDNER MD [facility]) 02/15/2022 Travel 02/04/2022 Hospital Encounter Pio Alexandre Canceled (Patient) CHARO Wasserman 02/04/2022 Patient Outreach Dolores Minaya Primary RN Care L, RN Management; [facility] F/U (Anticipated DC from TCU on 02/04/22) 02/02/2022 [facility] Cara Boggs NP Transition al Care Visit (SPECIAL SERVICE REPRESENTATIVE discharge v isit) 01/27/2022 [facility] Ashtyn Vogt Transitional C are Visit MD Luda (MD follow up ) 01/20/2022 [facility] Ashtyn Vogt Transitional C are Visit MD Luda (Initial ) 01/19/2022 Telephone Cara Boggs NP Abnormal L ab Results 01/17/2022 [facility] Mayra Logan Transitional Care Visit Melissa Bronson NP (SPECIAL SERVICE REPRESENTATIVE Admit) 01/11/2022 Orders Only Alexandre Suero <No scans jaclyn ched> CHARO Wasserman 01/05/2022 Anesthesia Event Burt Devlin, FANNIE Munroe, Ashish Joyner MD 01/05/2022 Travel 12/28/2021 Refill Phuc Porter Refill Requ est MD Lizzie (Allopurinol, M etoprolol Succinate, Ator vastatin, ) 12/27/2021 - Hospital Encounter RimaBeto hayes S/P TAVR (transcatheter aortic valve replacement) (Primary Dx); 01/14/2022 MD [facility]-acquired pneumonia; Residents, Icu SOB (shortness of breath); Sam Barreto, Atrial fibri llation with RVR (HC); Cardiovascular symptoms; Lary, Adriano on chroni c heart failure with preserved ejection fraction (HC); [place] persistent atrial fibrillation (HC); S/P AVR (aortic valve replacement); Rocio Paris ESRD (end stage renal disease) on dialysis (HC); NIC Salinas RSV (respiratory syncytial virus infecti on); [place] Allergic rhinit is due to pollen, unspecified seasonality; MD Kaylee Insomnia, unspecified type; Kyle Joe, Type 2 diabet es mellitus with other circulatory complication, without long-term current use of insulin (HC) Maury Madden MD Fuerstenberg, Jon Derek, MD Discharge Summary - Maury Mckeon MD - 01/14/2022 11:12 AM CDT Images from the original not e were not included. HOSPITALIST DISCHARGE SUMMAR Y ? ? [facility] Admission Date: 12/27/2021 Discharge Date: 01/14/2022 Discharge Plan: Jonatan Hess Moiseelly keys was discharged to transitional care unit. Principal Diagnosis Pneumonia due to MSSA and [facility] Problem List Principal Problem: Pneumonia due to infectious organism Active Problems: Type 2 diabetes mellitus wi th circulatory disorder, without long-term current use of insulin (HC) Unspecified essential hyper tension Other and unspecified hyper lipidemia Heart failure with preserve d ejection fraction (HC) RSV (respiratory syncytial virus infection) ESRD (end stage renal disea se) on dialysis (HC) ADDITIONAL COMMENTS REGARDIN G DIAGNOSIS SPECIFICITY Additional Diagnosis Informa tion ? The patient is on home ox ygen, so has a diagnosis consistent with chronic respiratory failure. Hospital Course Jonatan Mejia is a 76 y. o. male with h/o ESRD on HD, s/p AVR, mitral stenosis, HFpEF, paroxysmal atrial fibrillation (not on anticoagulation due to ulcer), peptic ulcer disease, type 2 diabetes romel itus who presented to the ED for shortness of breath and cough. ?? Patient started developing s ymptoms ~1 week prior to admission. Admitted to [facility] 12/23 with RSV. Discharged home, still SOB. Came to [facility] 12/27 tachycardic and hypoxic. Started on BiPAP. CXR sh owed worse mild congestive f ailure, new moderate consolidation in left lower lung. Procalcitonin and WBC elevated. He was started on cefepime/vancomycin, admitted to ICU for further management. Sputum c ultures grew MSSA and serrat ia marcescens. completed course of abx ?? Also found to be in afib on admission with mild troponin elevation, signs of CHF exacerbation. Cardiology consulted. Started on amiodarone drip, repeat echo showed severe aortic stenosis and worsened RV systolic function. Amio sto pped, switched to digoxin (one dose). Volume overload managing w/ dialysis, limited by hypotension. Valve team evaluated patient. Concern that he will be unable to dialyze ef fectively with his severe as his blood pressures will remain too low. Angiogram and RHC 01/04. Angiogram done with ANISA to mid LAD. Now on DAPT. RHC showed severe PAH and elevated PCWP. He underwent T AVR 01/05. This was complica alfredo by balloon valve fracture initially. Ultimately deployed EVOLUT FX 29mm. He was taken to the ICU for hypotension. Nephrology following for HD/ volume overload/HyperK. Initially with issues tolerated HD due to pressure. Midodrine started Has been off of anticoagulat ion given prior GI bleed - most recent hospitalization 09/2021. EGD at that time showed erythematous duodenopathy and erythematous mucosa of the gastric body. No site of bleed ing was found. Now back on D APT as above. Protonix BID. Hemoglobin down-trended for two days but subsequently stabilized PT/OT recommending SNF. Plac ement was completed and he was discharged on 01/14 Recommendations for Outpatie nt Provider ? ? PCP: Phuc Porter MD Recommendations for outpati ent provider Specific recommendations to be addressed at the follow up visit: no specific recommendations , routine post-hospital and medical follow-up. Medication regimen changes: no medications were changed. Follow-up labs/imaging: none Other specialty follow-up no t included in DC orders: None Special considerations: none . Functional evaluations: Fall Risk: Total Score (If 5 or > is High Risk): 7 (01/13/222099) NuDESC (>/=2 abnormal): 0 ( 01/13/222099) MOCA: // SLUMS: Discharge Medications Your Home Medicines START taking these medicines Instructions aspirin chewable 81 mg chewa ble tablet For diagnoses: S/P AVR (aort ic valve replacement) Take 1 Tablet (81 mg) by mo ut or nasogastric tube once daily. atorvastatin 40 mg tablet For diagnoses: S/P TAVR (tra nscatheter aortic valve replacement) Commonly known as: LIPITOR Take 1 Tablet (40 mg) by mo uth once daily. benzonatate 100 mg capsule For diagnoses: RSV (respirat ory syncytial virus infection) Commonly known as: TESSALON Take 1 Capsule (100 mg) by mouth 3 times daily if needed for Cough. clopidogreL 75 mg tablet For diagnoses: S/P AVR (aort ic valve replacement) Commonly known as: PLAVIX Take 1 Tablet (75 mg) by mo uth every morning. insulin aspart (U-100) 100 u nit/mL (3 mL) pen For diagnoses: Type 2 diabet es mellitus with other circulatory complication, without long-term current use of insulin (HC) Commonly known as: NOVOLOG F LEXPEN Inject 0-5 units subcutaneo us three times daily before meals. Give subcutaneous TID with meals per blood glucose (mg/dL). Don't give corrective dose for PRN, post-prandial or nocturnal glucose checks unless ordered. Blood Glucose.....Dose <70...............See Hypogl ycemia Protocol 70-149..........No insulin, give prandial insulin, if ordered 150-199........No insulin 200-249........1 unit 250-299........2 units 300-349........3 units 350-399........4 units 400 or greater....5 units & call melatonin 3 mg tablet For diagnoses: Insomnia, uns pecified type Take 1 Tablet (3 mg) by miguelito th at bedtime if needed, may repeat once for Sleep. Midodrine HCl 10 mg tablet For diagnoses: ESRD (end sta ge renal disease) on dialysis (HC) Take 1 Tablet (10 mg) by mo uth before dialysis. CHANGE how you take these me dicines Instructions * fluticasone (50 mcg per ac tuation) nasal spray For diagnoses: Allergic rhin itis due to pollen, unspecified seasonality What changed: See the new in structions. Commonly known as: FLONASE Inhale 2 Sprays to both nos trils two times daily. * fluticasone (50 mcg per ac tuation) nasal spray For diagnoses: RSV (respirat ory syncytial virus infection) What changed: You were alrea dy taking a medication with the same name, and this prescription was added. Make sure you understand how and when to take each. Commonly known as: FLONASE Inhale 2 Sprays into affect ed nostril(s) once daily if needed for Rhinitis (in addition to the twice daily scheduled). sevelamer carbonate 800 mg T ab tablet For diagnoses: ESRD (end sta ge renal disease) on dialysis (HC) What changed: ?? how much to take ?? how to take this ?? when to take this ?? additional instructions Commonly known as: RENVELA Take one tab twice a day wi th meals * This list has 2 medicatio n(s) that are the same as other medications prescribed for you. Read the directions carefully, and ask your doctor or other care provider to review them with you. CONTINUE taking these medici jeremy Instructions albuterol HFA 90 mcg/actuati on inhaler Commonly known as: PRO-AIR; VENTOLIN; PROVENTIL Inhale 2 Puffs by mouth meliton ry 4 hours if needed for Shortness Of Breath. albuterol-ipratropium (2.5-0 .5 mg) in 3 mL NEBULIZATION solution For diagnoses: Bronchospasm Commonly known as: DUONEB Inhale 3 mL via a nebulizer every 6 hours if needed for Shortness of Breath 1st choice. allopurinoL 100 mg tablet For diagnoses: Unspecified e ssential hypertension Commonly known as: ZYLOPRIM Take 1 tablet by mouth once daily. amoxicillin 500 mg capsule For diagnoses: Need for SBE (subacute bacterial endocarditis) prophylaxis Commonly known as: AMOXIL 4 capsules oral one hour be fore procedure. Contour Next Test Strips str ip For diagnoses: Type 2 diabet es mellitus with stage 5 chronic kidney disease not on chronic dialysis, without long-term current use of insulin (HC) Generic drug: blood sugar di agnostic TEST ONCE DAILY fluticasone propion-salmeter oL 115-21 mcg/actuation inhaler For diagnoses: Bronchospasm Commonly known as: ADVAIR Inhale 2 Puffs by mouth meliton ry 12 hours. guaiFENesin 600 mg Extended- Release tablet Commonly known as: MUCINEX Take 1,200 mg by mouth two times daily. lidocaine-prilocaine 2.5-2.5 % cream Commonly known as: EMLA APPLY SMALL AMOUNT TO ACCES S SITE (AVF) 1 TO 2 HOURS BEFORE DIALYSIS. COVER WITH OCCLUSIVE DRESSING (SARAN WRAP) metoprolol succinate 25 mg S ustained-Release tablet For diagnoses: Unspecified e ssential hypertension Commonly known as: TOPROL XL Take 1/2 tablet by mouth da haylee. oxygen-air delivery systems For diagnoses: Pulmonary HTN (HC) Commonly known as: HOME OXYG EN Oxygen for home use. Liters per minute: 1-2 per nasal cannula Continuous with portability. Length of need: 3 Months. pantoprazole 40 mg delayed-r elease tablet For diagnoses: Chronic GERD Commonly known as: PROTONIX Take 1 Tablet (40 mg) by [facility] once daily before a meal. Triphrocaps 1 mg capsule For diagnoses: Stage 4 chron ic kidney disease (HC) Generic drug: b complex-yuri min c-folic acid 1 mg Take 1 capsule by mouth neeru ly. Where to get your medicines These medications were sent to [facility] [address] [address] Hours: Open 24 Hours ?? fluticasone (50 mcg per a ctuation) nasal spray ?? fluticasone (50 mcg per a ctuation) nasal spray These medications were sent to [facility], [facility] [address] [facility] [address] [facility] [address], [facility] [id number] Hours: 24-hours Phone: ?? allopurinoL 100 mg tablet ?? metoprolol succinate 25 m g Sustained-Release tablet ?? Triphrocaps 1 mg capsule Prescriptions for these medi cines or supplies were NOT printed nor sent to your preferred pharmacy. Check with your doctor if you have questions. Check with your doctor if yo u have questions. ?? aspirin chewable 81 mg ch ewable tablet ?? atorvastatin 40 mg tablet ?? benzonatate 100 mg capsul e ?? clopidogreL 75 mg tablet ?? insulin aspart (U-100) 10 0 unit/mL (3 mL) pen ?? melatonin 3 mg tablet ?? Midodrine HCl 10 mg table t ?? sevelamer carbonate 800 m g Tab tablet Pertinent Findings / Procedu res First weight: 111.1 kg (245 lb) (12/27/21 0019) Last weight: 93.6 kg (206 lb 5.6 oz) (01/13/22 0600) Labs Renal Heme GI 01/12/22 0725 HGB 9.0* MCV 100 Cardiopulmonary ID Endo COVID-19: Negative 12/28/19 22 01/12/22 1722 01/12/22 2127 01/13/22 0720 01/13/22 1146 01/13/22 1234 GLUCOSEMETER 119* 183* 140* 165* 174* Imaging Echo 01/05 Final Impressions: Limited Echocardiogram perfo rmed 1. Normal LV size, normal g lobal systolic function with an estimated EF of 60 - 65%. 2. Right ventricular cavity size is severely enlarged, global systolic RV function is moderately reduced. 3. Moderately enlarged left atrium. 4. The aortic valve is a no rmal functioning 29 mm CoreValve Evolut Pro bioprosthesis AVR (within prior SAVR, Vmax = 1.9, mean gradient 7 mmHg). Trivial paravalulvular regurgitation without valvular regurgitation. 5. The mitral valve is sten otic with mean gradient of 6-7 mmHg at a heart rate of 56 bpm. 6. Moderate tricuspid regur gitation. 7. Severely increased estim ated pulmonary pressures by tricuspid regurgitation velocity and right atrial pressure (80 mmHg plus RAP). 8. The inferior vena cava i s dilated, respiratory size variation less than 50%, consistent with elevated right atrial pressure. Consultants Encounter Notes Consults Buzz Cruz MBBS Critic al Care Medicine ? ? 01/05/2022 Aminata Chavarria, DO [Cosign Needed] Emergency Medicine ? ? 01/05/2022 Rickey Koroma MD Wallace rgery - General ? ? 01/03/2022 Lesley Oliveira MD Cardiology - Interventional ? ? 01/03/2022 Rocio Paris MB BS Internal Medicine ? ? 12/30/2021 Abhishek Mazariegos MD Cardiovascular Disease ? ? 12/27/2021 Alexis Hobson MD Neph rology ? ? 12/27/2021 Diet / Activity / Follow-Up After Discharge Orders and I nstructions Activity and weight bearing as tolerated Activity and weight bearing status as tolerated. Nursing staff to re-evaluate and modify as appropriate. Admission H&P Valid: Yes Agency Standing Orders: Yes All Orders Valid For 45 Day s Unless Otherwise Indicated Allergies: -- Blood-Group Specific Sub stance -- Other - Describe In Comment Field -- Patient has a Suggestive Warm Auto antibody. Blood products may be delayed. Dr espinoza patient 24 hours prior to transfusion. Draw one red top and two purple top tubes for all ty pe and screen orders. -- Hayfever [Homeopathic Pr oducts] -- Runny Nose -- Lisinopril -- Cough Blood Glucose Monitoring QID AC and HS (Before meals and at bedtime) Call physician or nurse prac titioner for blood glucose less than 75 or greater than 400 Diet Renal/Dialysis (or facility equivalent) Discharge Condition: Stabil ized Discharge Potential: Length of Stay LESS Than 30 Days Discharge Summary: Enclosed Discharge instructions afte r receiving anesthesia or sedation: * You have received medicin e (anesthesia, sedation or both) that made you sleepy. This will affect your ability to think clearly and make good decisions. * For your safety, you will need a responsible adult to drive you home and to stay with you for 24 hours. * For 24 hours: - Do not drive or use any ma chinery. - Do not make important deci sions. - Do not drink alcohol. (It is also important to not drink alcohol as long as you are taking prescription pain medicine.) Free of Communicable Diseas e: Yes Give 2-Step Mantoux: Yes, U nless Current or Contraindicated Level of Care: shelter COMMUNICATION BCBS MR Annita MARTIN obtained: Auth #: [id number]; patient authorized for dates 01/14-01/20. dental associate assigned: Me tamika Rod; she does not have a direct line. Calls will need to go throug h main Availity phone number: [phone], and go through the prompts. (SNF can ask for Earline junior calling, or Attn to: Earline Gruber with faxing). OP Cardiac Rehab Eval and T reat Advance to maintenance prog mireille upon completion of Phase II. For heart failure patients, may participate in Heart Failure Bridging Program. Reason For Cardiac Rehab: H eart Valve Replacement Patient Aware of Diagnosis: Yes Patient Cardiology Follow U p Instructions A coordinator has been aske d to call you to schedule a follow-up appointment with [facility] at our [place] location in 4-6 weeks. If you do not hear from someone within a few days of discharge, please call to schedule this appointment. When to follow up: 4 to 6 w eeks Patient Instruction post bl adder scan Same Day Discharge patients If unable to urinate in 6-8 hours after discharge, return to Emergency Room with your discharge instructions. Patient may leave SNF super vised with medications Primary Care Provider laverne espana appointment(s) Phuc Porter MD When to follow up: 1 to 5 d ays Primary Care Provider laverne espana appointment(s) Phuc Porter MD When to follow up: 1 to 5 d ays Rehab Potential: Good Treatment - Occupational Th erapy Eval and Treat Treatment - Physical Therap y Eval and Treat Treatment Options: Full Res uscitation Vital Signs per facility ro utine Weight per facility routine Weigh on admission to skill ed nursing facility When should you be concerne d? At the halfway faci lity let your health care providers know if you notice any changes in your condition. Who can the receiving facil ity call with order questions? If any questions arise with in the first 24 hours after discharge contact our service at [phone]. Why were you at the hospita l? You were in the hospital fo r pneumonia. Clinic Request for Cardiolo gy Follow Up Appointment Please schedule follow-up w [facility] in [place] in 4-6 weeks. Type of cardiology follow u p needed: Follow Up Recommended next visit type : In person Cardiology Specialty: Gener al Pending Studies Lab results that may not be resulted at time of discharge: (From admission through now) None Total time spent on discharg e coordination: 32 minutes. Patient was seen and examined today. Maury Mckeon MD Hospitalist, [facility] ? ? [phone] 12/27/2021 Travel 12/22/2021 Orders Only Scanner <No scans attac hed> 12/08/2021 Office Visit Phuc Porter MD Follow Up; Immunization/In jection 12/08/2021 Travel 12/01/2021 Refill Phuc Porter MD Refill Request (Fluticasone (50 Mcg Per Actuati on) Nasal) 11/30/2021 Orders Only Lab, [facility] 11/30/2021 Travel 11/28/2021 Refill Phuc Porter MD Refill Request (Metoprolol Succinate, Allo purinol, Atorvastatin, ) from Last 3 Months Immunizations Name Administration Dates Next Due AMB INFLUENZA IIV3 (AGE 65+ YRS) PF 12/28/2018 (Flu Clinic Only) COVID-19 vaccine (Moderna 05/11/2020, 04/17/2020 100mcg/0.5mL) PF, MDV COVID-19 vaccine ([employer] 10/15/2021 30mcg/0.3mL) 12YO+ THOMAS-SUCROSE PF, MDV Influenza, [...] Family History Medical History Relation Name Comments No Known Problems Brother Hypertension Father No Known Problems Maternal Grandfather Diabetes Maternal Grandmother Heart Disease Mother No Known Problems Paternal Grandfather Diabetes Paternal Grandmother No Known Problems Sister Anesthesia Malignant Hyperthermia No Family History Cancer-colon No Family History Cancer-prostate No Family History Relation Name Status Comments Brother Father Maternal Grandfather Maternal Grandmother Mother Paternal Grandfather Paternal Grandmother Sister Social History Tobacco Use Types Packs/Day Years [...] in contact with No / Unsu re 02/15/2022 1:44 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 Obstetrics History Last Filed Vital Signs Vital Sign Reading Time Taken Comments Blood Pressure 116/59 02/15/2022 1:49 PM SCREWDOWN OPERATOR Pulse 65 02/15/2022 1:49 PM SCREWDOWN OPERATOR Temperature 36.9 ??C (98.4 ??F) 01/14/2022 12:00 PM CDT Respiratory Rate 18 01/14/2022 1:12 PM CDT Oxygen Saturation 98% 02/15/2022 1:49 PM SCREWDOWN OPERATOR Inhaled Oxygen Concentration - - Weight 93.6 kg (206 lb 5.6 oz) 01/13/2022 6:00 AM CDT Height 177.8 cm (5' 10) 12/27/2021 3:16 AM CDT Body Mass Index 29.61 12/27/2021 3:16 AM CDT Plan of Treatment Upcoming Encounters Date Type Specialty Care Team Description 03/08/2022 Orders Only 03/08/2022 Appointment 03/08/2022 Office Visit 04/15/[address] Escobar MD [address] [place] [address] [place] [address] [phone] (Wo rk) 06/07/2022 Orders Only Lab, [facility] 06/14/2022 Office Visit Phuc Porter MD [address] [place] [phone] (Wo rk) Health Maintenance Due [...] Pneumococcal series for age 65+ Completed 12/09/2015, 0606/2014, 10/07/2008 Hepatitis C screening for age Completed 11/30/2021 18-79 Influenza for age 65+ Completed 12/08/2021, 12/04/2019, 12/28/2018, Additional history exists COVID-19 vaccine series Completed 02/02/2022, 10/15/2021, 05/11/2020, Additional history exists Medical Devices Implanted Type Area Finisher Wallboard And Plasterboard Device Shelf Model / Identifier Expiration Serial / Date Lot Anw Hh [id number] Cv Implants N/A: [place] 07/13/2010 30 [id number] / Implanted: Qty: 1 on 09/03/2008 at [facility] Aortic [employer] [id number] / Explanted: at [facility] (Quantity not on file) Valve Jaclyn Procedures Procedure Name Priority Date/Time Associated Diagnosis Comme nts GLUCOSE METER Timed 01/14/2022 1:14 Results for this PM CDT procedure are i n the results section. SCAN-CARDIAC STRIP 01/14/2022 9:14 AM CDT GLUCOSE METER Timed 01/14/2022 7:13 Results for this AM CDT procedure are i n the results section. GLUCOSE METER Timed 01/13/2022 9:23 Results for this PM CDT procedure are i n the results section. GLUCOSE METER Timed 01/13/2022 5:02 Results for this PM CDT procedure are i n the results section. SCAN-CARDIAC STRIP 01/13/2022 4:22 PM CDT GLUCOSE METER Timed 01/13/2022 12:34 Results fo r this PM CDT procedure are i n the results section. GLUCOSE METER Timed 01/13/2022 11:46 Results fo r this AM CDT procedure are i n the results section. SCAN-CARDIAC STRIP 01/13/2022 8:41 AM CDT GLUCOSE METER Timed 01/13/2022 7:20 Results for this AM CDT procedure are i n the results section. SCAN-CARDIAC STRIP 01/13/2022 1:04 AM CDT GLUCOSE METER Timed 01/12/2022 9:27 Results for this PM CDT procedure are i n the results section. GLUCOSE METER Timed 01/12/2022 5:22 Results for this PM CDT procedure are i n the results section. GLUCOSE METER Timed 01/12/2022 11:18 Results fo r this AM CDT procedure are i n the results section. SCAN-CARDIAC STRIP 01/12/2022 8:01 AM CDT HEMOGLOBIN Early AM 01/12/2022 7:25 Results for this AM CDT procedure are i n the results section. GLUCOSE METER Timed 01/12/2022 7:20 Results for this AM CDT procedure are i n the results section. SCAN-CARDIAC STRIP 01/12/2022 3:19 AM CDT GLUCOSE METER Timed 01/11/2022 9:22 Results for this PM CDT procedure are i n the results section. GLUCOSE METER Timed 01/11/2022 5:11 Results for this PM CDT procedure are i n the results section. SCAN-CARDIAC STRIP 01/11/2022 3:42 PM CDT SCAN-CARDIAC STRIP 01/11/2022 3:42 PM CDT GLUCOSE METER Timed 01/11/2022 11:44 Results fo r this AM CDT procedure are i n the results section. HEMOGLOBIN Early AM 01/11/2022 10:35 Results for this AM CDT procedure are i n the results section. SCAN-CARDIAC STRIP 01/11/2022 7:52 AM CDT GLUCOSE METER Timed 01/11/2022 7:19 Results for this AM CDT procedure are i n the results section. SCAN-CARDIAC STRIP 01/11/2022 3:33 AM CDT GLUCOSE METER Timed 01/10/2022 9:53 Results for this PM CDT procedure are i n the results section. GLUCOSE METER Timed 01/10/2022 6:48 Results for this PM CDT procedure are i n the results section. GLUCOSE METER Timed 01/10/2022 12:16 Results fo r this PM CDT procedure are i n the results section. SCAN-CARDIAC STRIP 01/10/2022 9:26 AM CDT HEMOGLOBIN Early AM 01/10/2022 8:24 Results for this AM CDT procedure are i n the results section. GLUCOSE METER Timed 01/10/2022 7:50 Results for this AM CDT procedure are i n the results section. SCAN-CARDIAC STRIP 01/10/2022 3:03 AM CDT GLUCOSE METER Timed 01/09/2022 9:45 Results for this PM CDT procedure are i n the results section. GLUCOSE METER Timed 01/09/2022 4:57 Results for this PM CDT procedure are i n the results section. XR CHEST 1 VIEW GLORY 01/09/2022 3:49 Results f or this PORTABLE PM CDT procedure are i n the results section. SCAN-CARDIAC STRIP 01/09/2022 3:19 PM CDT GLUCOSE METER Timed 01/09/2022 12:01 Results fo r this PM CDT procedure are i n the results section. SCAN-CARDIAC STRIP 01/09/2022 10:25 AM CDT HEMOGLOBIN Early AM 01/09/2022 8:48 Results for this AM CDT procedure are i n the results section. PLATELET COUNT Timed 01/09/2022 8:48 Results fo r this AM CDT procedure are i n the results section. GLUCOSE METER Timed 01/09/2022 7:45 Results for this AM CDT procedure are i n the results section. GLUCOSE METER Timed 01/09/2022 6:59 Results for this AM CDT procedure are i n the results section. SCAN-CARDIAC STRIP 01/08/2022 10:44 PM CDT GLUCOSE METER Timed 01/08/2022 10:34 Results fo r this PM CDT procedure are i n the results section. HEMOGLOBIN Today 01/08/2022 10:05 Results for this PM CDT procedure are i n the results section. GLUCOSE METER Timed 01/08/2022 6:53 Results for this PM CDT procedure are i n the results section. SCAN-CARDIAC STRIP 01/08/2022 4:01 PM CDT HEMOGLOBIN Today 01/08/2022 3:04 Results for this PM CDT procedure are i n the results section. GLUCOSE METER Timed 01/08/2022 2:00 Results for this PM CDT procedure are i n the results section. SCAN-CARDIAC STRIP 01/08/2022 7:06 AM CDT GLUCOSE METER Timed 01/08/2022 6:44 Results for this AM CDT procedure are i n the results section. PLATELET COUNT Early AM 01/08/2022 5:24 Results fo r this AM CDT procedure are i n the results section. HEMOGLOBIN Early AM 01/08/2022 5:24 Results for this AM CDT procedure are i n the results section. BASIC METABOLIC PANEL Early AM 01/08/2022 5:24 Res ults for this AM CDT procedure are i n the results section. GLUCOSE METER Timed 01/07/2022 10:28 Results fo r this PM CDT procedure are i n the results section. GLUCOSE METER Timed 01/07/2022 6:27 Results for this PM CDT procedure are i n the results section. SCAN-CARDIAC STRIP 01/07/2022 5:09 PM CDT HEMOGLOBIN Today 01/07/2022 2:24 Results for this PM CDT procedure are i n the results section. GLUCOSE METER Timed 01/07/2022 12:14 Results fo r this PM CDT procedure are i n the results section. MAGNESIUM Early AM 01/07/2022 6:46 Results for this AM CDT procedure are i n the results section. BASIC METABOLIC PANEL Early AM 01/07/2022 6:46 Res ults for this AM CDT procedure are i n the results section. CBC W PLT NO DIFF Early AM 01/07/2022 6:46 Results for this AM CDT procedure are i n the results section. GLUCOSE METER Timed 01/07/2022 3:46 Results for this AM CDT procedure are i n the results section. GLUCOSE METER Timed 01/07/2022 12:58 Results fo r this AM CDT procedure are i n the results section. GLUCOSE METER Timed 01/06/2022 8:30 Results for this PM CDT procedure are i n the results section. SCAN-CARDIAC STRIP 01/06/2022 4:30 PM CDT GLUCOSE METER Timed 01/06/2022 3:54 Results for this PM CDT procedure are i n the results section. ARTERIAL BLOOD GAS STAT 01/06/2022 2:16 Result s for this PM CDT procedure are i n the results section. LACTATE ARTERIAL Today 01/06/2022 12:50 Results for this PM CDT procedure are i n the results section. O2 SATURATION,MEASURED Today 01/06/2022 12:50 R esults for this PM CDT procedure are i n the results section. ARTERIAL BLOOD GAS STAT 01/06/2022 11:22 Resul ts for this AM CDT procedure are i n the results section. GLUCOSE METER Timed 01/06/2022 11:19 Results fo r this AM CDT procedure are i n the results section. SCAN-CARDIAC STRIP 01/06/2022 10:59 AM CDT GLUCOSE METER Timed 01/06/2022 8:29 Results for this AM CDT procedure are i n the results section. EKG 12 LEAD Early AM 01/06/2022 6:56 Results for this AM CDT procedure are i n the results section. GLUCOSE METER Timed 01/06/2022 5:15 Results for this AM CDT procedure are i n the results section. MAGNESIUM Early AM 01/06/2022 5:03 Results for this AM CDT procedure are i n the results section. BASIC METABOLIC PANEL Early AM 01/06/2022 5:03 Res ults for this AM CDT procedure are i n the results section. CBC W PLT NO DIFF Early AM 01/06/2022 5:03 Results for this AM CDT procedure are i n the results section. GLUCOSE METER Timed 01/05/2022 11:56 Results fo r this PM CDT procedure are i n the results section. SCAN-CARDIAC STRIP 01/05/2022 11:46 PM CDT XR ABDOMEN 1 VIEW GLORY 01/05/2022 9:47 Results for this PORTABLE PM CDT procedure are i n the results section. EKG 12 LEAD GLORY 01/05/2022 7:19 Results for this PM CDT procedure are i n the results section. ARTERIAL BLOOD GAS STAT 01/05/2022 6:13 Result s for this PM CDT procedure are i n the results section. LACTATE ARTERIAL Today 01/05/2022 6:13 Results for this PM CDT procedure are i n the results section. XR CHEST 1 VIEW Routine 01/05/2022 5:57 Results f or this PORTABLE PM CDT procedure are i n the results section. ECHO LIMITED WO Today 01/05/2022 5:33 Results f or this CONTRAST PM CDT procedure are i n the results section. GLUCOSE METER Timed 01/05/2022 5:03 Results for this PM CDT procedure are i n the results section. HEMOGLOBIN Today 01/05/2022 4:59 Results for this PM CDT procedure are i n the results section. COMPREHENSIVE BLOOD Timed 01/05/2022 3:28 Resul ts for this GAS ARTERIAL PM CDT procedure are i n the results section. HCHG ACTIVATED Timed 01/05/2022 2:08 Results fo r this CLOTTING TM CV PM CDT procedure are in the results section. CVL OTHER PROCEDURE Routine 01/05/2022 1:51 Resul ts for this PM CDT procedure are i n the results section. ENDOTRACHEAL TUBE Routine 01/05/2022 1:38 Results for this PM CDT procedure are i n the results section. ENDOTRACHEAL TUBE Routine 01/05/2022 1:38 Results for this PM CDT procedure are i n the results section. ENDOTRACHEAL TUBE Routine 01/05/2022 1:38 Results for this PM CDT procedure are i n the results section. RBC W/O TYPE & SCREEN STAT 01/05/2022 12:12 Re sults for this PM CDT procedure are i n the results section. HCHG KIT PR5 Routine 01/05/2022 11:51 Results for this AM CDT procedure are i n the results section. HCHG DRSG PR5 Routine 01/05/2022 11:51 Results fo r this AM CDT procedure are i n the results section. HCHG DRSG PR1 Routine 01/05/2022 11:51 Results fo r this AM CDT procedure are i n the results section. HCHG TUBING PR20 Routine 01/05/2022 11:51 Results for this AM CDT procedure are i n the results section. HCHG TUBING PR1 Routine 01/05/2022 11:51 Results for this AM CDT procedure are i n the results section. HCHG ANES ARTERIAL Routine 01/05/2022 11:51 Resul ts for this CATH FOR SAMPLE AM CDT procedure ar e in MONITOR TRANS the results section. HCHG CATH INFUSION Routine 01/05/2022 11:51 Resul ts for this PR10 AM CDT procedure are i n the results section. [facility] AN IV START Routine 01/05/2022 11:48 Results for this AM CDT procedure are i n the results section. [facility] AN IV START Routine 01/05/2022 11:48 Results for this AM CDT procedure are i n the results section. [facility] AN IV START Routine 01/05/2022 11:48 Results for this AM CDT procedure are i n the results section. [facility] AN IV START Routine 01/05/2022 11:48 Results for this AM CDT procedure are i n the results section. RED BLOOD CELLS EA STAT 01/05/2022 11:28 Resul ts for this UNIT AM CDT procedure are i n the results section. RED BLOOD CELLS EA STAT 01/05/2022 11:28 Resul ts for this UNIT AM CDT procedure are i n the results section. TYPE & SCREEN STAT 01/05/2022 11:28 Results fo r this AM CDT procedure are i n the results section. SCAN-CARDIAC STRIP 01/05/2022 10:53 AM CDT RENAL FUNCTION PANEL Early AM 01/05/2022 7:52 Resu lts for this AM CDT procedure are i n the results section. HEMOGLOBIN Early AM 01/05/2022 7:49 Results for this AM CDT procedure are i n the results section. SCAN-CARDIAC STRIP 01/04/2022 12:30 PM CDT HCHG ACTIVATED Timed 01/04/2022 11:26 Results f or this CLOTTING TM CV AM CDT procedure are in the results section. COMPREHENSIVE BLOOD Timed 01/04/2022 11:12 Resu lts for this GAS MIXED VENOUS AM CDT procedure a re in the results section. CVL CORONARY ANGIOGRAM Routine 01/04/2022 11:04 Cardiovascular Results for this POSS PCI AM CDT symptoms procedure are i n the results section. XR ORTHOPANTOGRAM Routine 01/03/2022 6:10 Results for this PM CDT procedure are i n the results section. GLUCOSE METER Timed 01/03/2022 12:21 Results fo r this PM CDT procedure are i n the results section. LIPID PANEL GLORY 01/03/2022 9:48 Results for this AM CDT procedure are i n the results section. PLATELET COUNT Timed 01/03/2022 9:48 Results fo r this AM CDT procedure are i n the results section. TROPONIN I Early AM 01/03/2022 9:48 Results for this AM CDT procedure are i n the results section. GLUCOSE METER Timed 01/03/2022 7:50 Results for this AM CDT procedure are i n the results section. GLUCOSE METER Timed 01/02/2022 10:11 Results fo r this AM CDT procedure are i n the results section. TROPONIN I Early AM 01/02/2022 7:34 Results for this AM CDT procedure are i n the results section. GLUCOSE METER Timed 01/02/2022 4:04 Results for this AM CDT procedure are i n the results section. GLUCOSE METER Timed 01/01/2022 10:07 Results fo r this PM CDT procedure are i n the results section. GLUCOSE METER Timed 01/01/2022 4:41 Results for this PM CDT procedure are i n the results section. GLUCOSE METER Timed 01/01/2022 10:04 Results fo r this AM CDT procedure are i n the results section. TROPONIN I Early AM 01/01/2022 7:14 Results for this AM CDT procedure are i n the results section. GLUCOSE METER Timed 01/01/2022 4:23 Results for this AM CDT procedure are i n the results section. GLUCOSE METER Timed 12/31/2021 10:03 Results fo r this PM CDT procedure are i n the results section. CTA CHEST ABD PELVIS Routine 12/31/2021 2:05 Resu lts for this TAVR - DUAL READ PM CDT procedure a re in the results section. GLUCOSE METER Timed 12/31/2021 8:12 Results for this AM CDT procedure are i n the results section. SCAN-CARDIAC STRIP 12/31/2021 7:16 AM CDT BLOOD GAS,VENOUS Early AM 12/31/2021 4:23 Results for this AM CDT procedure are i n the results section. CBC W PLT NO DIFF Early AM 12/31/2021 4:23 Results for this AM CDT procedure are i n the results section. BASIC METABOLIC PANEL Early AM 12/31/2021 4:23 Res ults for this AM CDT procedure are i n the results section. TROPONIN I Early AM 12/31/2021 4:23 Results for this AM CDT procedure are i n the results section. GLUCOSE METER Timed 12/31/2021 4:22 Results for this AM CDT procedure are i n the results section. TROPONIN I Early AM 12/31/2021 12:57 Results for this AM CDT procedure are i n the results section. GLUCOSE METER Timed 12/30/2021 9:27 Results for this PM CDT procedure are i n the results section. GLUCOSE METER Timed 12/30/2021 6:31 Results for this PM CDT procedure are i n the results section. GLUCOSE METER Timed 12/30/2021 12:10 Results fo r this PM CDT procedure are i n the results section. SCAN-CARDIAC STRIP 12/30/2021 7:00 AM CDT CBC W PLT NO DIFF Early AM 12/30/2021 4:52 Results for this AM CDT procedure are i n the results section. BASIC METABOLIC PANEL Early AM 12/30/2021 4:52 Res ults for this AM CDT procedure are i n the results section. BLOOD GAS,VENOUS Early AM 12/30/2021 4:52 Results for this AM CDT procedure are i n the results section. GLUCOSE METER Timed 12/30/2021 4:10 Results for this AM CDT procedure are i n the results section. SCAN-CARDIAC STRIP 12/30/2021 12:23 AM CDT GLUCOSE METER Timed 12/29/2021 10:07 Results fo r this PM CDT procedure are i n the results section. GLUCOSE METER Timed 12/29/2021 4:42 Results for this PM CDT procedure are i n the results section. SCAN-CARDIAC STRIP 12/29/2021 3:00 PM CDT BLOOD GAS,VENOUS Today 12/29/2021 1:11 Results for this PM CDT procedure are i n the results section. GLUCOSE METER Timed 12/29/2021 8:35 Results for this AM CDT procedure are i n the results section. SCAN-CARDIAC STRIP 12/29/2021 8:00 AM CDT BLOOD GAS,VENOUS Early AM 12/29/2021 5:47 Results for this AM CDT procedure are i n the results section. CBC W PLT NO DIFF Early AM 12/29/2021 5:47 Results for this AM CDT procedure are i n the results section. BASIC METABOLIC PANEL Early AM 12/29/2021 5:47 Res ults for this AM CDT procedure are i n the results section. TROPONIN I Early AM 12/29/2021 5:47 Results for this AM CDT procedure are i n the results section. XR CHEST 1 VIEW Routine 12/29/2021 4:43 Results f or this PORTABLE AM CDT procedure are i n the results section. GLUCOSE METER Timed 12/29/2021 2:42 Results for this AM CDT procedure are i n the results section. GLUCOSE METER Timed 12/28/2021 8:42 Results for this PM CDT procedure are i n the results section. EKG 12 LEAD Routine 12/28/2021 8:27 Results for this PM CDT procedure are i n the results section. GLUCOSE METER Timed 12/28/2021 3:28 Results for this PM CDT procedure are i n the results section. GLUCOSE METER Timed 12/28/2021 8:59 Results for this AM CDT procedure are i n the results section. HBSAG (HBS) GLORY 12/28/2021 8:37 Results for this AM CDT procedure are i n the results section. PHOSPHORUS Early AM 12/28/2021 8:37 Results for this AM CDT procedure are i n the results section. MAGNESIUM Early AM 12/28/2021 8:37 Results for this AM CDT procedure are i n the results section. BLOOD GAS,VENOUS Early AM 12/28/2021 8:37 Results for this AM CDT procedure are i n the results section. CBC W PLT NO DIFF Early AM 12/28/2021 8:37 Results for this AM CDT procedure are i n the results section. BASIC METABOLIC PANEL Early AM 12/28/2021 8:37 Res ults for this AM CDT procedure are i n the results section. TROPONIN I Early AM 12/28/2021 8:36 Results for this AM CDT procedure are i n the results section. GLUCOSE METER Timed 12/28/2021 4:54 Results for this AM CDT procedure are i n the results section. GLUCOSE METER Timed 12/28/2021 12:07 Results fo r this AM CDT procedure are i n the results section. SCAN-CARDIAC STRIP 12/27/2021 7:38 PM CDT GLUCOSE METER Timed 12/27/2021 5:51 Results for this PM CDT procedure are i n the results section. SPUTUM CULTURE, STAIN Today 12/27/2021 5:10 Res ults for this PM CDT procedure are i n the results section. BLOOD GAS,VENOUS Today 12/27/2021 1:45 Results for this PM CDT procedure are [...] section. TROPONIN I Early AM 12/27/2021 4:54 Results for this AM CDT procedure are i n the results section. PHOSPHORUS Early AM 12/27/2021 4:54 Results for this AM CDT procedure are i n the results section. MAGNESIUM Early AM 12/27/2021 4:54 Results for this AM CDT procedure are i n the results section. CBC W PLT NO DIFF Early AM 12/27/2021 4:54 Results for this AM CDT procedure are i n the results section. BASIC METABOLIC PANEL Early AM 12/27/2021 4:54 Res ults for this AM CDT procedure are i n the results section. SCAN-CARDIAC STRIP 12/27/2021 3:35 AM CDT GLUCOSE METER Timed 12/27/2021 3:31 Results for this AM CDT procedure are i n the results section. COVID 19 Timed 12/27/2021 2:50 Results for this AM CDT procedure are i n the results section. COVID 19 COLLECTION Today 12/27/2021 2:50 Resul ts for this AM CDT procedure are i n the results section. LACTATE VENOUS Timed 12/27/2021 2:45 Results fo r this AM CDT procedure are i n the results section. TROPONIN I GLORY 12/27/2021 1:33 Results for this AM CDT procedure are i n the results section. POTASSIUM STAT 12/27/2021 1:33 Results for this AM CDT procedure are [...] Add On 11/30/2021 12:45 Need for hepatitis C Res ults for this PM CDT screening test procedure are in the results section. URIC ACID Routine 11/30/2021 12:45 Gout, unspecified Result s for this PM CDT cause, unspecified procedure are in chronicity, the results unspecified site section. HEMOGLOBIN A1C Routine 11/30/2021 12:45 Type 2 diabetes Result s for this PM CDT mellitus with stage 5 proced ure are in chronic kidney the results disease not on section. chronic dialysis, without long-term current use of insulin (HC) LIPID PANEL W REFLEX Routine 11/30/2021 12:45 Type 2 diabetes Results for this MEASURED LDL PM CDT mellitus with stage 5 proced ure are in chronic kidney the results disease not on section. chronic dialysis, without long-term current use of insulin (HC) from Last 3 Months Results (ABNORMAL) GLUCOSE METER (01/14/2022 1:14 PM CDT)Only the most recent of67 resultswithin the time period is included. P athologist Signature GLUCOSE METER 175 (H) 65 - 100 01/14/2022 [facility] mg/dL 1:15 PM CDT [facility] Specimen Anatomical Collection Method Collection Time Receive d Time (Source) Location / / Volume Laterality Blood BLOOD SPECIMEN / 01/14/2022 1:14 PM 01/14 1:15 Unknown CDT PM CDT Maury Mckeon MD CHEMISTRY Performing Organization Address City/State/ZIP Code Phon e Number [facility] [id number] [place] [address] [facility] 2000 LABORATORY SCAN-CARDIAC STRIP (01/14/2022 9:14 AM CDT) Narrative This result has an attachment that is no t available. Scanner OTHER SCAN-CARDIAC STRIP (01/13/2022 4:22 PM CDT) Narrative This result has an attachment that is no t available. Scanner OTHER SCAN-CARDIAC STRIP (01/13/2022 8:41 AM CDT) Narrative This result has an attachment that is no t available. Scanner OTHER SCAN-CARDIAC STRIP (01/13/2022 1:04 AM CDT) Narrative This result has an attachment that is no t available. Scanner OTHER SCAN-CARDIAC STRIP (01/12/2022 8:01 AM CDT) Narrative This result has an attachment that is no t available. Scanner OTHER (ABNORMAL) HEMOGLOBIN (01/12/2022 7:25 AM CDT)Only the most recent of10 results within the time period is included. athologist Signature HEMOGLOBIN 9.0 (L) 13.5 - 01/12/2022 [facility] 17.5 g/dL 8:03 AM CDT [facility]AT[facility] MCV 100 80 - 100 01/12/2022 [facility] fL 8:03 AM CDT [facility] Specimen Anatomical Collection Method Collection Time Receive d Time (Source) Location / / Volume Laterality Blood BLOOD SPECIMEN / Butterfly / 01/12/2022 7:25 AM 01/12 7:58 Unknown Unknown CDT AM CDT India York MD HEMATOLOGY Performing Organization Address City/State/ZIP Code Phon e Number [facility] [phone] [place], [place] [address] [address] LABORATORY-CEN[facility]AL 2000 LABORATORY SCAN-CARDIAC STRIP (01/12/2022 3:19 AM CDT) Narrative This result has an attachment that is no t available. Scanner OTHER SCAN-CARDIAC STRIP (01/11/2022 3:42 PM CDT) Narrative This result has an attachment that is no t available. Scanner OTHER SCAN-CARDIAC STRIP (01/11/2022 3:42 PM CDT) Narrative This result has an attachment that is no t available. Scanner OTHER SCAN-CARDIAC STRIP (01/11/2022 7:52 AM CDT) Narrative This result has an attachment that is no t available. Scanner OTHER SCAN-CARDIAC STRIP (01/11/2022 3:33 AM CDT) Narrative This result has an attachment that is no t available. Scanner OTHER SCAN-CARDIAC STRIP (01/10/2022 9:26 AM CDT) Narrative This result has an attachment that is no t available. Scanner OTHER SCAN-CARDIAC STRIP (01/10/2022 3:03 AM CDT) Narrative This result has an attachment that is no t available. Scanner OTHER XR CHEST 1 VIEW PORTABLE (01/09/2022 3:49 PM CDT)Only the most recent of4 resultswithin the time period is included. Anatomical Region Laterality Modality HEART, THORAX, CHEST Digital Radiography Specimen (Source) Anatomical Collection Method Collection Time Re ceived Time Location / / Volume Laterality 01/09/2022 4:21 PM CDT Narrative 01/09/2022 4:21 PM CDT For Patients: ??As a result of the Cures Act, medical imaging exams and procedure report s are released immediately into your [facility] medical record. ??You may view this report before your referring provider. ??If you have questions, please contact your health care provider. Indication: Crackles Technique: Portable chest Comparison: X-ray 01/05/2022 Findings: Enlarged cardiac silhouette. Median steve rnotomy. Basilar atelectasis. No effusion or pneumothorax. Dictated by Keerthi Cullen MD @ Jan 09 ??4:21PM (Electronically Signed) ?? Procedure Note Keerthi Cullen MD - 01/09/2022 For Patients: As a result of the Cures Act, medical imaging exams and procedure reports are released immediately into your electronic medical record. You may view this report before your referring provider. If you have questions, please contact [facility] health care provider. Indication: Crackles Technique: Portable chest Comparison: X-ray 01/05/2022 Findings: Enlarged cardiac silhouette. Median steve rnotomy. Basilar atelectasis. No effusion or pneumothorax. Dictated by Keerthi Cullen MD @ Jan 09 4:21PM (Electronically Signed) India York MD GENERAL IMAGING SCAN-CARDIAC STRIP (01/09/2022 3:19 PM CDT) Narrative This result has an attachment that is no t available. Scanner OTHER SCAN-CARDIAC STRIP (01/09/2022 10:25 AM CDT) Narrative This result has an attachment that is no t available. Scanner OTHER PLATELET COUNT (01/09/2022 8:48 AM CDT)Only the most recent of3 resultswithin the time period is included. P athologist Signature PLATELET COUNT 153 140 - 440 01/09/2022 [facility] thou/cu mm 9:19 AM CDT [facility] MPV 10.0 6.5 - 11.0 01/09/2022 [facility] fL 9:19 AM CDT [facility] Specimen Anatomical Collection Method / Collection Time Recei annie Time (Source) Location / Volume Laterality Blood BLOOD SPECIMEN / Venipuncture / 01/09/2022 8:48 2021 9:03 Unknown Unknown AM CDT AM CDT Narrative [facility] LABORATORY-CENTRAL LABORAT ORY - 01/09/2022 9:19 AM CDT While on subcutaneous heparin Sam Barreto MD HEMATOLOGY Performing Organization Address City/State/ZIP Code Phon e Number [facility] [address] [place] [address] LABORATORY-CENTRAL 2000 LABORATORY SCAN-CARDIAC STRIP (01/08/2022 10:44 PM CDT) Narrative This result has an attachment that is no t available. Scanner OTHER SCAN-CARDIAC STRIP (01/08/2022 4:01 PM CDT) Narrative This result has an attachment that is no t available. Scanner OTHER SCAN-CARDIAC STRIP (01/08/2022 7:06 AM CDT) Narrative This result has an attachment that is no t available. Scanner OTHER (ABNORMAL) BASIC METABOLIC PANEL (01/08/2022 5:24 AM CDT)Only the most recent of 8 resultswithin the time period is included. Patholo gist Method Time Signature SODIUM 134 (L) 135 - 145 01/08/2022 [facility] mmol/L 6:09 AM CDT [facility] POTASSIUM 4.3 3.5 - 5.0 01/08/2022 [email or web address] mmol/L 6:09 AM CDT [facility] CHLORIDE 98 98 - 110 01/08/2022 [email or web address] mmol/L 6:09 AM CDT [facility] CO2,TOTAL 29 21 - 31 01/08/2022 [email or web address] mmol/L 6:09 AM CDT [facility] ANION GAP 7 5 - 18 01/08/2022 [facility] 6:09 AM CDT [facility] GLUCOSE 154 (H) 65 - 100 01/08/2022 [facility] mg/dL 6:09 AM CDT [facility] CALCIUM 9.9 8.5 - 10.5 01/08/2022 [facility] mg/dL 6:09 AM CDT [facility] BUN 42 (H) 8 - 25 01/08/2022 [facility] mg/dL 6:09 AM CDT [facility] CREATININE 5.07 (H) 0.72 - 01/08/2022 [email or web address] 1.25 mg/dL 6:09 AM CDT [facility] BUN/CREAT RATIO 8 (L) 10 - 20 01/08/2022 [email or web address] 6:09 AM CDT [facility] eGFR 11 (L) >90 01/08/2022 [email or web address] mL/min/1.7 6:09 AM CDT LABORATORY-[facility] 3m2 TRAL LABORATORY Comment: [...] Laterality Blood BLOOD SPECIMEN / Venipuncture / 01/08/2022 5:24 2021 5:37 Unknown Unknown AM CDT AM CDT Dileep Del Real MD CHEMISTRY Performing Organization Address City/State/ZIP Code Phon e Number [facility] [address] [place] [address] LABORATORY-CENTRAL 1999 LABORATORY SCAN-CARDIAC STRIP (01/07/2022 5:09 PM CDT) Narrative This result has an attachment that is no t available. Scanner OTHER (ABNORMAL) CBC W PLT NO DIFF (01/07/2022 6:46 AM CDT)Only the most recent of7 resultswithin the time period is included. [facility] gist Method Time Signature WHITE BLOOD 9.9 4.5 - 11.0 01/07/2022 [facility] COUNT thou/cu mm 7:37 AM CDT [facility] RED BLOOD COUNT 3.26 (L) 4.30 - 01/07/2022 [facility] 5.90 7:37 AM CDT LAB[facility]AT[facility] mil/cu mm TRAL LABORATORY HEMOGLOBIN 10.0 (L) 13.5 - 01/07/2022 [facility] 17.5 g/dL 7:37 AM CDT [facility] HEMATOCRIT 32.2 (L) 37.0 - 01/07/2022 [facility] 53.0 % 7:37 AM CDT [facility] MCV 99 80 - 100 01/07/2022 [facility] fL 7:37 AM CDT [facility] MCH 30.7 26.0 - 01/07/2022 [facility] 34.0 pg 7:37 AM CDT [facility] MCHC 31.1 (L) 32.0 - 01/07/2022 [facility] 36.0 g/dL 7:37 AM CDT [facility] RDW 17.0 (H) 11.5 - 01/07/2022 [facility] 15.5 % 7:37 AM CDT [facility] PLATELET COUNT 139 (L) 140 - 440 01/07/2022 [facility] thou/cu mm 7:37 AM CDT [facility] MPV 9.8 6.5 - 11.0 01/07/2022 [facility] fL 7:37 AM CDT [facility] NRBC 0.0 % 01/07/2022 [facility] 7:37 AM CDT [facility] ABS NRBC 0.0 thou /cu 01/07/2022 [facility] mm 7:37 AM CDT [facility] Specimen Anatomical Collection Method / Collection Time Recei annie Time (Source) Location / Volume Laterality Blood BLOOD SPECIMEN / Non-Lab 01/07/2022 6:46 01/08/20 22 6:53 Unknown Venipuncture / AM CDT AM CDT Unknown Tarik MARTIN HEMATOLOGY Performing Organization Address City/[facility]/ZIP Code Phon e Number [facility] [address] [facility] [place] [address] LABORATORY-CENTRAL 2000 LABORATORY MAGNESIUM (01/07/2022 6:46 AM CDT)Only the most recent of4 resultswithin the time period is included. athologist Signature MAGNESIUM 1.9 1.6 - 2.6 01/07/2022 [facility] mg/dL 7:55 AM CDT LABORATORY-CENTR AL LABORATORY Specimen Anatomical Collection Method / Collection Time Recei annie Time (Source) Location / Volume Laterality Blood BLOOD SPECIMEN / Non-Lab 01/07/2022 6:46 01/08/20 6:53 Unknown Venipuncture / AM CDT AM CDT Unknown Tarik MARTIN CHEMISTRY Performing Organization Address [facility] Phon e Number [email or web address] [address] [facility] [place] [address] LABORATORY-CENTRAL 2000 LABORATORY SCAN-CARDIAC STRIP (01/06/2022 4:30 PM CDT) Narrative This result has an attachment that is no t available. Scanner OTHER (ABNORMAL) ARTERIAL BLOOD GAS (01/06/2022 2:16 PM CDT)Only the most recent of3 resultswithin the time period is included. athologist Signature PH, ARTERIAL 7.36 7.35 - 01/06/2022 [facility] 7.45 2:37 PM CDT [facility] PCO2, ARTERIAL 53 (H) 35 - 48 01/06/2022 [facility] mmHg 2:37 PM CDT [facility] PO2, ARTERIAL 141 (H) 83 - 108 01/06/2022 [facility] mmHg 2:37 PM CDT [facility] HCO3, ARTERIAL 30 (H) 21 - 28 01/06/2022 [facility] mmol/L 2:37 PM CDT [facility] BASE EXCESS, 3.2 (H) -2.0 - 3.0 01/06/2022 [facility] ARTERIAL 2:37 PM CDT [facility] O2 SATURATION, 100 (H) 94 - 98 % 01/06/2022 [facility] ARTERIAL 2:37 PM CDT [facility] INSPIRED O2 01/06/2022 [facility] 2:37 PM CDT [facility] Comment: Unit of Measure: Liters (L) if <=20; Percent (%) if >20 PATIENT TEMPERATURE 37.0 Degrees C 01/06/2022 2:37 PM [facility] CDT LABORATORY-CENTRAL LABORATORY Specimen Anatomical Collection Method / Collection Time Recei annie Time (Source) Location / Volume Laterality Blood ARTERIAL BLOOD Non-Lab 01/06/2022 2:16 01/06/2022 2:30 SPECIMEN / Unknown Venipuncture / PM CDT PM CDT Unknown Kyle LOGAN CHEMISTRY Performing Organization Address City/State/ZIP Code Phon e Number [facility] [address] [place] [address] LABORATORY-CENTRAL 2000 LABORATORY LACTATE ARTERIAL (01/06/2022 12:50 PM CDT)Only the most recent of2 resultswithin the time period is included. P athologist Signature LACTATE,ARTERI 0.8 0.5 - 1.6 01/06/2022 [facility] [place] mmol/L 1:20 PM CDT LABORATORY-CENT RAL LABORATORY Specimen Anatomical Collection Method / Collection Time Recei annie Time (Source) Location / Volume Laterality Blood BLOOD SPECIMEN / Non-Lab 01/06/2022 12:50 022 1:01 Unknown Venipuncture / PM CDT PM CDT Unknown Alhaji Gonzalez MD CHEMISTRY Performing Organization Address City/[facility]/ZIP [facility] Phon e Number [facility] [address] [place] [address] LABORATORY-CENTRAL 1999 LABORATORY (ABNORMAL) O2 SATURATION,MEASURED (01/06/2022 12:50 PM CDT) Analysis Performed At Patho logist Time Signature O2 91 % 01/06/2022 [facility] SATURATION,KARINA 1:06 PM CDT LABORATORY-[facility] TRAL LABORATORY HEMOGLOBIN,BLO 10.8 (L) 13.5 - 01/06/2022 [facility] 17.5 g/dL 1:06 PM CDT [facility]AT[facility] TR[facility] LABORAT[facility] SOURCE, O2M Venous 01/06/2022 [email or web address] 1:06 PM CDT [facility] Specimen Anatomical Collection Method / Collection Time Recei annie Time (Source) Location / Volume Laterality Blood BLOOD SPECIMEN / Non-Lab 01/06/2022 12:50 022 1:00 Unknown Venipuncture / PM CDT PM CDT Unknown Narrative [facility] LABORATORY-CENTRAL LABORAT ORY - 01/06/2022 1:06 PM CDT Reference Range for: ??Arterial Source ?([id number]) ?Non-Art erial Source ??([id number]) Alhaji Gonzalez MD CHEMISTRY Performing Organization Address City/State/ZIP Code Phon e Number [facility] [address] [place] [address] LABORATORY-CENTRAL 2000 LABORATORY SCAN-CARDIAC STRIP (01/06/2022 10:59 AM CDT) Narrative This result has an attachment that is no t available. Scanner OTHER EKG - In AM (01/06/2022 6:56 AM CDT)Only the most recent of4 resultswithin the time period is included. Component Value Ref Range Test Analysis Performed Pathologis t Method Time At Signature Interpretation Atrial fibrillation with slow ventricular response BEYOND NOW Rightward axis Minimal voltage criteria for LVH, may be normal variant ( Damir product ) Abnormal ECG When compared with ECG of 05-JAN-2022 19:19, (Unconfirmed) No significant change was found Ventricular Rate 59 BPM BEYOND NOW Atrial Rate BPM BEYOND NOW P-R Interval ms BEYOND NOW QRS Duration 114 ms BEYOND NOW QT 422 ms BEYOND NOW QTc 417 ms BEYOND NOW P [place] degrees BEYOND NOW R [place] 90 degrees BEYOND NOW T [place] 44 degrees BEYOND NOW Specimen Anatomical Collection Method Collection Time Receive d Time (Source) Location / / Volume Laterality 01/06/2022 6:56 AM 7:48 CDT AM CDT Chava MARTIN EKG ORD Performing Organization Address City/State/ZIP Code Phon e Number [place], [place] SCAN-CARDIAC STRIP (01/05/2022 11:46 PM CDT) Narrative This result has an attachment that is no t available. Scanner OTHER XR ABDOMEN 1 VIEW PORTABLE (01/05/2022 9:47 PM CDT) Anatomical Region Laterality Modality Abdomen Digital Radiography Specimen (Source) Anatomical Collection Method Collection Time Re ceived Time Location / / Volume Laterality 01/05/2022 10:18 PM CDT Impressions 01/05/2022 10:18 PM CDT 1. NG tube is present with the tip just beyond the GE junction. Dictated by Jay Nava MD @ Jan 05 2022 1 0:18PM (Electronically Signed) ?? Narrative 01/05/2022 10:18 PM CDT For Patients: ??As a result of the Cures Act, medical imaging exams and procedure report s are released immediately into your [facility] medical record. ??You may view this report before your referring provider. ??If you have questions, please contact your health care provider. INDICATION: NG tube placement TECHNIQUE: Abdominal radiograph 1 view COMPARISON: None FINDINGS: The sensitivity and specificit y of the exam are severely limited by the patient`s body habitus. Bowel: Moderate amount of stool is prese nt throughout the colon which may be due to chronic constipation. Most of the lower abdomen and pelvis is excluded. NG tube is present with the tip just beyond the GE junction. Soft tissue: No evidence of pneumoperito neum present. No suspicious calcifications noted. Bone: Unremarkable for age. Procedure Note Jay Nava MD - 01/05/2022Formattin g of this note might be different from the original. For Patients: As a result of the Cures Act, medical imaging exams and procedure reports are released immediately into your electronic medical record. You may view this report before your referring provider. If you have questions, please contact [facility] health care provider. INDICATION: NG tube placement TECHNIQUE: Abdominal radiograph 1 view COMPARISON: None FINDINGS: The sensitivity and specificit y of the exam are severely limited by the patient`s body habitus. Bowel: Moderate amount of stool is prese nt throughout the colon which may be due to chronic constipation. Most of the lower abdomen and pelvis is excluded. NG tube is present with the tip just beyond the GE junction. Soft tissue: No evidence of pneumoperito neum present. No suspicious calcifications noted. Bone: Unremarkable for age. IMPRESSION: 1. NG tube is present with the tip just beyond the GE junction. Dictated by Jay Nava MD @ Jan 05 2022 1 0:18PM (Electronically Signed) India York MD GENERAL IMAGING ECHO LIMITED WO CONTRAST (01/05/2022 5:33 PM CDT) P athologist Signature AORTIC VALVE 7 mmHg MEAN PG PEAK TR 4.5 m/s VELOCITY LVEDD 4.1 cm EJECTION 60 - 65% FRACTION Anatomical Region Laterality Modality HEART Ultrasound Specimen (Source) Anatomical Collection Method Collection Time Re ceived Time Location / / Volume Laterality 01/05/2022 5:36 PM CDT Narrative 01/05/2022 5:43 PM CDT ECHOCARDIOGRAM JONATAN MEJIA ? Accessi on#: ?? [id number] : ?1945 76 years Study Date: ?? 01/05/2022 5:36:39 PM Gender: M ?BP: ? 121/58 mmHg Height: 178.00 cm ?BSA: ?2.20 m? ?? Weight: 102.00 kg ?Tech: ? [facility] ? Referring MD: CHAVA FERNANDEZ Site: ? [facility] Reading Location: [facility] Procedure: Limited 2D , Color Doppler an d Limited Spectral Doppler. Indication for study: TAVR; Prosthetic a ortic valve failure Cardiac Rhythm: Irregular.Study quality: Fair. Final Impressions: Limited Echocardiogram performed 1. Normal LV size, normal global systol ic function with an estimated EF of 60 - 65%. 2. Right ventricular cavity size is sev erely enlarged, global systolic RV function is moderately reduced. 3. Moderately enlarged left atrium. 4. The aortic valve is a normal functio ismael 29 mm CoreValve Evolut Pro bioprosthesis AVR (within prior SAVR, Vmax = 1.9, mean gradient 7 mmHg). Trivial paravalulvular regurgitation without valvular regurgitation. 5. The mitral valve is stenotic with me an gradient of 6-7 mmHg at a heart rate of 56 bpm. 6. Moderate tricuspid regurgitation. 7. Severely increased estimated pulmona ry pressures by tricuspid regurgitation velocity and right atrial pressure (80 mmHg plus RAP). 8. The inferior vena cava is dilated, r espiratory size variation less than 50%, consistent with elevated right atrial pressure. Comparison Compared to prior exam: - s/p Kailey TAVR - PA pressure is higher. Chamber Sizes and Function Normal left ventricular size, normal ramirez bal systolic function with an estimated EF of 60 - 65%. Left atrial size is moderately enlarged. Right ventricular cavity size is severely enlarged, global systolic RV function is moderately reduced. Valves, RV Pressures and Diastolic Funct ion The aortic valve is a normal functioning 29 mm CoreValve Evolut Pro bioprosthesis replacement There is trivial paravalvular reguritation. The mitral valve is sclerotic. The mitral valve peak velocity is 2.36 m/s and the mean gradient is 6.7 m mHg. The tricuspid valve is normal in structure. Tricuspid regurgitation is moderate. The tricuspid regurgitant velocity is 4.5 m/s, the estimated right ventricul ar systolic pressure is 80 mmHg plus rig ht atrial pressure. There is severely increased estimated pulmonary pressure by tricuspid regurgitation velocity and right atrial pressure. The pulmonic valve is normal. Trace pulmonic regurgitation is present on color flow. Masses, Effusion, Shunts There is no pericardial effusion. The in ferior vena cava is dilated, respiratory size variation less than 50%, consistent with elevated right atrial pressure. MEASUREMENTS AND CALCULATIONS 2-D Measurements and LV Function: LVID (d) 4.1 cm LV FS% (2D) ?? 51 % LVID (s) 2.0 cm LVOT diameter 2.6 cm LVPW (d) 1.4 cm HR ?52 b pm Aortic Valve: Vmax ? 1.9 m/s ??CLAUS (V) ?? 2.55 cm? ?? VTI ?0.39 m ?? CLAUS (I) ?? 2.84 cm? ?? LVOT V max 0.9 m/s ??Max PG ?14 mmHg LVOT VTI ?? 0.21 m ?? Mean PG ?? 7 mmHg SV ? 110 ml ?? Dim Index 0.54 SV index ?? 50 ml/m? ?? CO ?5.7 l/min ?CI ?2.6 l/min/m? ?? Mitral Valve: MV Mean G 7 mmHg MV VTI ?0.65 m Tricuspid Valve and estimated PA pressur es: TR Vmax 4.5 m/s TR maxG 80 mmHg This study was interpreted by an [facility] redited facility. ??Final ?? Procedure Note Terry Camacho MD - 01/05/2022F ormatting of this note might be different from the original. ECHOCARDIOGRAM JONATAN MEJIA : 1945 76 years Study Date: 12/18 5:36:39 PM Gender: M BP: 121/58 mmHg Height: 178.00 cm BSA: 2.20 m? ?? Weight: 102.00 kg Tech: [facility] Referring MD: CHAVA Alvares Site: [facility] Reading Location: [facility] Procedure: Limited 2D , Color Doppler an d Limited Spectral Doppler. Indication for study: TAVR; Prosthetic a ortic valve failure Cardiac Rhythm: Irregular.Study quality: Fair. Final Impressions: Limited Echocardiogram performed 1. Normal LV size, normal global systol ic function with an estimated EF of 60 - 65%. 2. Right ventricular cavity size is sev erely enlarged, global systolic RV function is moderately reduced. 3. Moderately enlarged left atrium. 4. The aortic valve is a normal functio ismael 29 mm CoreValve Evolut Pro bioprosthesis AVR (within prior SAVR, Vmax = 1.9, mean gradient 7 mmHg). Trivial paravalulvular regurgitation without valvular regurgitation. 5. The mitral valve is stenotic with me an gradient of 6-7 mmHg at a heart rate of 56 bpm. 6. Moderate tricuspid regurgitation. 7. Severely increased estimated pulmona ry pressures by tricuspid regurgitation velocity and right atrial pressure (80 mmHg plus RAP). 8. The inferior vena cava is dilated, r espiratory size variation less than 50%, consistent with elevated right atrial pressure. Comparison Compared to prior exam: - s/p Kailey TAVR - PA pressure is higher. Chamber Sizes and Function Normal left ventricular size, normal ramirez bal systolic function with an estimated EF of 60 - 65%. Left atrial size is moderately enlarged. Right ventricular cavity size is severely enlarged, global systolic RV function is moderately reduced. Valves, RV Pressures and Diastolic Funct ion The aortic valve is a normal functioning 29 mm CoreValve Evolut Pro bioprosthesis replacement There is trivial paravalvular reguritation. The mitral valve is sclerotic. The mitral valve peak velocity is 2.36 m/s and the mean gradient is 6.7 mmHg. The tricu spid valve is normal in structure. Tricuspid regurgitation is moderate. The tricuspid regurgitant velocity is 4.5 m/s, the estimated right ventricular systolic pressure is 80 mmHg plus right atrial pressure. There is severely increased estimated pulmonary pressure by tricuspid regurgitation velocity and right atrial pressure. The pulmonic valve is normal. Trace pulmonic regurgitation is present on color flow. Masses, Effusion, Shunts There is no pericardial effusion. The in ferior vena cava is dilated, respiratory size variation less than 50%, consistent with elevated right atrial pressure. MEASUREMENTS AND CALCULATIONS 2-D Measurements and LV Function: LVID (d) 4.1 cm LV FS% (2D) 51 % LVID (s) 2.0 cm LVOT diameter 2.6 cm LVPW (d) 1.4 cm HR 52 bpm Aortic Valve: Vmax 1.9 m/s CLAUS (V) 2.55 cm? ?? VTI 0.39 m CLAUS (I) 2.84 cm? ?? LVOT V max 0.9 m/s Max PG 14 mmHg LVOT VTI 0.21 m Mean PG 7 mmHg SV 110 ml Dim Index 0.54 SV index 50 ml/m? ?? CO 5.7 l/min CI 2.6 l/min/m? ?? Mitral Valve: MV Mean G 7 mmHg MV VTI 0.65 m Tricuspid Valve and estimated PA pressur es: TR Vmax 4.5 m/s TR maxG 80 mmHg This study was interpreted by an [facility] redited facility. Final Chava MARTIN ECHO ORD (ABNORMAL) COMPREHENSIVE BLOOD GAS ARTERIAL (01/05/2022 3:28 PM CDT) Patholo gist Method Time Signature PH, ARTERIAL 7.19 (LL) 7.35 - 7.45 01/05/2022 [facility] 3:28 PM CDT LABORATORY-[facility] LABORATORY PCO2, ARTERIAL 73 (HH) 35 - 48 01/05/2022 [facility] mmHg 3:28 PM CDT LABORATORY-[facility] LABORATORY PO2, ARTERIAL 150 (H) 83 - 108 01/05/2022 [facility] mmHg 3:28 PM CDT LABORATORY-[facility] NTR[facility] LABORATORY HCO3, ARTERIAL 28 21 - 28 01/05/2022 [facility] mmol/L 3:28 PM CDT LABORATORY-[facility] NTRAL LABORATORY BASE EXCESS, -2.1 (L) -2.0 - 3.0 01/05/2022 [facility] ARTERIAL 3:28 PM CDT LABORATORY-CE NTRAL LABORATORY O2 SATURATION, 100 (H) 94 - 98 % 01/05/2022 [facility] ARTERIAL 3:28 PM CDT LABORATORY-CE NTRAL LABORATORY PATIENT 37.0 Degrees C 01/05/2022 [facility] TEMPERATURE 3:28 PM CDT LABORATORY-CE NTRAL LABORATORY COLLECTION SITE ARTERIAL 01/05/2022 [facility] LINE 3:28 PM CDT LABORATORY-CE NTRAL LABORATORY Specimen Anatomical Collection Method Collection Time Receive d Time (Source) Location / / Volume Laterality Blood BLOOD SPECIMEN / 01/05/2022 3:28 PM 01/05 3:29 Unknown CDT PM CDT India York MD CHEMISTRY Performing Organization Address City/State/ZIP Code Phon e Number [facility] [address] [place] [address] LABORATORY-CENTRAL 2000 LABORATORY (ABNORMAL) ACTIVATED CLOTTING TIME [id number] ACT (01/05/2022 2:08 PM CDT)Only the most recent of2 resultswithin the time period is included. P athologist Signature ACTIVATED 207 (H) 74 - 125 01/07/2022 [facility] CLOTTING TIME, sec 11:52 PM CDT LABORATORY-C EN POCT TRAL LABORATORY Specimen Anatomical Collection Method Collection Time Receive d Time (Source) Location / / Volume Laterality Blood BLOOD SPECIMEN / 01/05/2022 2:08 PM 01/07 Unknown CDT 11:52 PM CDT India York MD HEMATOLOGY Performing Organization Address City/State/ZIP Code Phon e Number [facility] [address] [place] [address] LABORATORY-CENTRAL 2000 LABORATORY CVL OTHER PROCEDURE (01/05/2022 1:51 PM CDT) Anatomical Region Laterality Modality Other Specimen (Source) Anatomical Collection Method Collection Time Re ceived Time Location / / Volume Laterality 01/05/2022 1:51 PM CDT Narrative This result has an attachment that is no t available. Procedure Note Lesley Oliveira MD - 01/06/2022 9:21 AM CDT DATE OF SERVICE: 01/05/2022 PREOPERATIVE DIAGNOSES: 1. Severe bioprosthetic aortic stenosis. 2. Severe and persistent respiratory mary carmen lure, status post RSV infection. 3. Chronic hemodialysis. 4. Systemic pulmonary hypertension. 5. Status post LAD mid stenting. PROCEDURES: 1. Right transfemoral TAVR 29 Evolut. 2. Bioprosthetic valve fracture with 26 mm balloon. 3. Temporary pacemaker. 4. Post TAVR left coronary angiography. 5. Aortic root angiography. 6. Perclose groin closure. PROCEDURE NOTE: The patient with persistent respiratory distress post-extubation/post-RSV pneumonia. All vascular access was ultrasound guide d by the right femoral approach. A large bore sheath was brought into the abdominal aorta and through this access to the LV apex easily obtained. Temporary pacemaker was brought up from the right femoral vein into the RV apex where adequate pacing function was confirmed. By the left femoral artery, an angled pigtail was brought to the proximal aortic root. A coplanar view was established for the bioprosthetic valve and a 26 mm ball oon provided bioprosthetic valve fracture at 14 atmospheres with a resultant drop in pressure. This was then followed up with a 29 mm Evolut. He had multiple runs of ventricular tachycardia, owing to wire irritation an d the use of an epinephrine drip post bioprosthetic valve fracture. Cardioversion was not required. There is no aortic insufficiency noted. The gradient improved from 46 on echo to 17 post-bioprosthetic valve fracture and Evolut 29 mm device. Coronary angiography showed a widely patent left coronary. The VTC was 4.5 mm, so confirmatory patency was performed. A Perclose was used to assure hemostasis. There was a right femoral he matoma, resulting from heavily calcified entry point in the common femoral, not evident on ultrasound. The patient's manual hemostasis as well as reversing heparin allowed for satisfactory outcome. Good results were obtained. There were no complications. Results are automatically released to [employer] account once available, in compliance with federal regulations. This means that you may see your results before your provider has had a chance to review them. Please allow 2-3 business days for your provider to comment on the results. LESLEY OLIVEIRA MD MRM/DEEPAK VJID: [id number] TJID: [id number] cc: PHUC PORTER MD Lesley Oliveira MD CV IMAGING HCHG TUBE PR1, HCHG INSTRUMENT DISP PR10, HCHG STYLET PR1 (01/05/2022 1:38 PM CDT) Narrative Burt Devlin CRNA - 01/05/2022 1 :38 PM CDT Burt Devlin CRNA ? 01/05/2022 ??1:39 PM Procedure: ETT Patient location during procedure: OR ETT Properties Mask Ventilation: easy and oral airway Final Technique: video laryngoscopy Type: straight Location: oral Cuffed: yes Tube Size: 7.0 mm Stylet: yes Laryngoscope Blade: Glidescope Blade Size: 4 Cormack-Lehane Grade View: 1 Insertion Attempts: 1 Placement Verification: auscultation, en d tidal CO2 and symmetrical chest wall movement Assessment: pharynx clear, atraumatic an d dentition unchanged Secured at: 21 Measured From: teeth Difficulty: 0 (not difficult) Electronically signed by Jane Laird CRNA Student ? Burt Devlin LIVER TRIMMER ANESTHESIA PX NOTE ORDERABLE S RBC W/O TYPE & SCREEN (01/05/2022 12:12 PM CDT) P athologist Signature QUANTITY 2 [facility]EN[facility]AL LAB BLOOD BANK Specimen (Source) Anatomical Collection Method Collection Time Re ceived Time Location / / Volume Laterality Blood BLOOD SPECIMEN / 01/05/2022 11:40 Unknown AM CDT Lesley Oliveira MD BLOOD BANK Performing Organization Address City/State/ZIP Code Phon e Number [facility] LAB-CENTRAL LAB [address] [place] [address] [phone] BLOOD BANK HCHG CATH INFUSION PR10, HCHG ANES ARTERIAL CATH FOR SAMPLE MONITOR TRANS, HCHG TUBING PR1, HCHG TUBING PR20, HCHG DRSG PR1, HCHG DRSG PR5, HCHG KIT PR5 (01/05/2022 11:51 AM CDT) Narrative Kameron Bowen MD - 01/05/2022 5:02 PM CDT Kameron Bowen MD ? 01/05/2022 11:51 AM Arterial Line Patient location during procedure: pre-o p Indications: lab sampling and monitoring Staffing Preanesthetic Checklist Completed: patient identified, risks and benefits discussed, consent obtained and timeout performed Arterial Line Laterality: right Site: radial Local Anesthetic: lidocaine 1%. Securement/dressing: Biopatch applied, d ressing applied. Comment: Needle Catheter size: 20 G. Comment:. Catheter length: 12 cm. Comment: Events: no complications. Electronically signed by Kameron Bowen MD ? Beto Abarca MD ANESTHESIA PX NOTE ORDERABLE S HCHG TUBING PR1, HCHG KIT PR1, HCHG NDL PR1, HCHG NDL PR1 (01/05/2022 11:48 AM CDT) Narrative Kameron Bowen MD - 01/05/2022 11:48 AM CDT Kameron Bowen MD ? 01/05/2022 11:52 AM IV Start Patient location during procedure: pre-o p Start time: 01/05/2022 11:48 AM End time: 01/05/2022 11:52 AM PIV Site was prepped per hospital policy Laterality: right Local Anesthetic: lidocaine 1%. Needle Size: 14 G Site: antecubital Supplies Used: set primary IV tubing Electronically signed by Kameron Bowen MD ? Beto Abarca MD ANESTHESIA PX NOTE ORDERABLE S Type and Screen (01/05/2022 11:28 AM CDT) [facility] Method Time Signature ABORH O Rh 01/05/2022 [facility] Negative 1:02 PM CDT LAB-CENTRAL LAB BLOOD BANK ANTIBODY Negative Negative 01/05/2022 [facility] SCREEN 1:02 PM CDT LAB-CENTRAL LAB BLOOD BANK SPECIMEN 01/08/22 01/05/2022 [facility] EXPIRATION 23:59 1:02 PM CDT LAB-CENTRAL DATE/TIME LAB BLOOD BANK Specimen Anatomical Collection Method / Collection Time Recei annie Time (Source) Location / Volume Laterality Blood BLOOD SPECIMEN / Venipuncture / 01/05/2022 11:28 01/05 Unknown Unknown AM CDT 11:49 AM CDT Alexandre Suero NP BLOOD BANK Performing Organization Address City/[facility]/ZIP Code Phon e Number [facility] LAB-CENTRAL LAB [address] [place] [address] [phone] BLOOD BANK RED BLOOD CELLS EA UNIT (01/05/2022 11:28 AM CDT)Only the most recent of2 resultswithin the time period is included. [facility] Method Time Signature CROSSMATCH Compatible Compatible [facility] LAB-CENTRAL LAB BLOOD BANK PRODUCT BLOOD O Rh Negative [facility] LAB-CENTRAL LAB BLOOD BANK PRODUCT ID [id number] [facility] LAB-CENTRAL LAB BLOOD BANK PRODUCT STATUS /Relea [facility]ALTH LAB-CENTRAL LAB BLOOD BANK PRODUCT RBC -3 LR [facility] DESCRIPTION Pt1 [facility]ALTH LAB-CENTRAL LAB BLOOD BANK PRODUCT CODE [id number] [facility] LAB-CENTRAL LAB BLOOD BANK Specimen (Source) Anatomical Location Collection Method / Collectio n Time Received Time / Laterality Volume Lesley Oliveira MD BLOOD BANK Performing Organization Address [facility]/ZIP Code Phon e Number [facility] LAB-CENTRAL LAB [address] [place] [address] [phone] BLOOD BANK SCAN-CARDIAC STRIP (01/05/2022 10:53 AM CDT) Narrative This result has an attachment that is no t available. Scanner OTHER (ABNORMAL) RENAL FUNCTION PANEL (01/05/2022 7:52 AM CDT) [facility] Method Time Signature SODIUM 130 (L) 135 - 145 01/05/2022 [facility] mmol/L 8:43 AM CDT LABORATORY-LAURIE TRAL LABORATORY POTASSIUM 4.5 3.5 - 5.0 01/05/2022 [facility] mmol/L 8:43 AM CDT LABORATORY-LAURIE TRAL LABORATORY CHLORIDE 96 (L) 98 - 110 01/05/2022 [facility] mmol/L 8:43 AM CDT LABORATORY-LAURIE TRAL LABORATORY CO2,TOTAL 26 21 - 31 01/05/2022 [facility] mmol/L 8:43 AM CDT LABORATORY-LAURIE TRAL LABORATORY ANION GAP 8 5 - 18 01/05/2022 [facility] 8:43 AM CDT LABORATORY-LAUR[facility] TRAL LABORATORY GLUCOSE 143 (H) 65 - 100 01/05/2022 [facility] mg/dL 8:43 AM CDT LABORATORY-LAURIE TRAL LABORATORY CALCIUM 10.2 8.5 - 10.5 01/05/2022 [facility] mg/dL 8:43 AM CDT LABORATORY-LAUR[facility] TRAL LABORATORY BUN 53 (H) 8 - 25 01/05/2022 [facility] mg/dL 8:43 AM CDT LABORATORY-LAURIE TRAL LABORATORY CREATININE 5.99 (H) 0.72 - 01/05/2022 [facility] 1.25 mg/dL 8:43 AM CDT LABORATORY-LAURIE TRAL LABORATORY BUN/CREAT RATIO 9 (L) 10 - 01/05/2022 [facility] 8:43 AM CDT LABORATORY-LAURIE TRAL LABORATORY PHOSPHORUS 4.0 2.3 - 4.7 01/05/2022 [facility] mg/dL 8:43 AM CDT LABORATORY-LAURIE TRAL LABORATORY ALBUMIN 3.5 3.2 - 4.6 01/05/2022 [facility] g/dL 8:43 AM CDT LABORATORY-LAURIE TRAL LABORATORY eGFR 9 (L) >90 01/05/2022 [facility] mL/min/1.7 8:43 AM CDT LABORATORY-LAURIE 3m2 TRAL LABORATORY Comment: [...] Volume Laterality Blood BLOOD SPECIMEN / Non-Lab 01/05/2022 7:52 01/06/20 8:07 Unknown Venipuncture / AM CDT AM CDT Unknown Ernie Pompa MD CHEMISTRY Performing Organization Address City/State/ZIP Code Phon e Number [facility] [address] [place] [address] LABORATORY-CENTRAL 1999 LABORATORY SCAN-CARDIAC STRIP (01/04/2022 12:30 PM CDT) Narrative This result has an attachment that is no t available. Scanner OTHER (ABNORMAL) COMPREHENSIVE BLOOD GAS MIXED VENOUS (01/04/2022 11:12 AM CDT) [facility] Method Time Signature O2 SATURATION, 68 (L) 70 - 75 % 01/04/2022 [facility] MEASURED, MIXED 11:12 AM LABORATORY-CE VENOUS CDT [facility] LABORATORY PATIENT 37.0 Degrees C 01/04/2022 [email or web address] TEMPERATURE 11:12 AM LABORATORY-CE CDT [facility] LABORATORY COLLECTION SITE PULMONARY 01/04/2022 [facility] ARTERY 11:12 AM LABORATORY-CE CDT [facility] LABORATORY HEMOGLOBIN,BLOO 11.4 (L) 13.5 - 01/04/2022 [facility] D GAS 17.5 g/dL 11:12 AM LABORATORY-CE CDT NTRAL LABORATORY Specimen Anatomical Collection Method Collection Time Receive d Time (Source) Location / / Volume Laterality Blood BLOOD SPECIMEN / 01/04/2022 11:12 022 Unknown AM CDT 11:17 AM CDT India York MD CHEMISTRY Performing Organization Address City/State/ZIP Code Phon e Number [facility] [address] [place] [address] LABORATORY-CENTRAL 1999 LABORATORY CVL CORONARY ANGIOGRAM POSS PCI (01/04/2022 11:04 AM CDT) Anatomical Region Laterality Modality Other Specimen (Source) Anatomical Collection Method Collection Time Re ceived Time Location / / Volume Laterality 01/04/2022 11:04 AM CDT Narrative This result has an attachment that is no t available. Transcriptions Roosevelt Jarvis MD - 01/04/2022 11:39 AM CDT [facility] Cardiac Catheterization Report Name: JONATAN MEJIA Event Date: 01/04 11:04 [facility] ID #: [id number] DARIO #: [id number] Diagnostic Physician: ROOSEVELT CARDENAS [facility] Interventional Physician: ROOSEVELT JARVIS [facility] Referring Physician: Phuc Porter Date: 1945 Gender: Male Age: 76 Summary/Conclusions PRESENTATION / INDICATIONS * Congestive Heart Failure - Highest [facility] A Class w/in 2 - NYHA Class IV VASCULAR ACCESS * Using ultrasound guidance and a percut aneous technique, the right common femoral artery was accessed. Ultrasound was used to confirm vessel patency, localizing needle into the lumen of the vessel. An image was saved for the medical record. * Using ultrasound guidance and a percut aneous technique, the right femoral vein was accessed. Ultrasound was used to confirm vessel patency, localizing needle into the lumen of the vessel. An image was saved for the medical record. DIAGNOSTIC - CORONARY * Angiography difficult due to CHF and c hallenges with contrast filling. * Right dominant coronary artery system * The left main artery has minimal disea se. * The LAD is severely diseased and is se verely calcified. High grade lesion in mid segment. * The circumflex artery has mild disease . * The RCA has mild disease. HEMODYNAMICS * Severe pulmonary artery hypertension ( 95/29/54 mmHg) * Severely elevated pulmonary capillary wedge pressures (25 mmHg) * Severely elevated right atrial pressur es (18 mmHg) * Cardiac output is normal by Marshall (5.4 l/min; 2.5 l/min/m2) INTERVENTION * Successful angioplasty and stenting (d rug eluting) of the mid LAD (2.0 x 22 mm Resolute Austin, post dilated to 2.5 mm) SPECIAL PROCEDURES * Right femoral arteriotomy was successf ully closed utilizing a closure device (Perclose) RECOMMENDATIONS & PLAN * Aspirin: 81 mg daily * Ticagrelor 90 mg bid * Optimize treatment for CHF * Proceed with [id number] aortic valve replacement. Consent & Drifton Protocol The risks, benefits, and alternatives of the procedure were discussed with the patient and written informed consent was obtained. Drifton protocol was followed. TIME OU T conducted just prior to starting procedure confirmed patient identity, site/side, procedure, patient position, and availability of correct equipment and implants (if applicable). Staff Name Title Roosevelt Jarvis Diagnostic In Store Demonstrator Migdalia Garcia CVT Scrub Alexis Cosby ORACLE TECHNICAL ARCHITECT Monitor Bebeto Salguero RN Nurse Roosevelt Jarvis Interventional Cardiologis t Procedures ? Ultrasound Guided Vascular Access ? Coronary Angiogram ? Right Heart Catheterization ? Stent Placement, Drug Eluting [PCI] ? Femoral Closure Device Diagnostic Findings * Left Anterior Descending ? 80% (denovo) stenosis in the Mid LAD. The lesion has a YASIR flow of 3. * Circumflex ? 20% stenosis in the Proximal Circumfle x. * Right Coronary Artery ? 30% stenosis in the Mid RCA. Lesion Information Lesion # Vessel Segment Lesion Length Le tl Details 1 Mid LAD 20 Proximal Circumflex Mid RCA Hemodynamics State: Baseline Pressures (mmHg) Site Systolic Diastolic End Diastolic A Wave V Wave Mean RA 23 21 18 RV 105 4 21 PA 95 29 54 PCW 29 32 24 AO 91 39 57 Oximetry PA: 67.9 % ART: 98 % Cardiac Output Estimated Marshall Output: 5.43 l/min Estimated Marshall Index: 2.5 l/min/m2 Resistances PVR: 441.6 PVR Index: 958.65 SVR: [id number] SVR Index: 1246.24 PVR/SVR: 0.77 Blood Flow Systemic (QS): 5.43 l/min Interventional Results * Left Anterior Descending ? Successful intervention to the Mid LAD 80% lesion with a final stenosis of 0% using a 2mm x 15mm Balloon, 2.5mm x 12mm Balloon, and a 2mm x 22mm Drug Eluting Stent. The final YASIR flow was 3. Interventional Devices Lesion # Vessel Segment Type Name Max Pr essure 1 Mid LAD Balloon BLLN EUPHORA RX 2.0mmx 15mm 1 Mid LAD Balloon BLLN EUPHORA NC RX 2.5 MM X 12MM 1 Mid LAD Drug Eluting Stent ANISA AUSTIN Fr ontier RX [id number] Procedure Details Estimated Blood Loss: < 30 ml Specimen Collected: None Level of Sedation Achieved: Moderate Procedure Start: 11:04 Procedure End: :25 Procedure Time: 21 min Fluoroscopy Time: 5.9 min Cumulative Air Kerma: 493 mGy DAP: 4310 uGy/M2 Contrast: Omnipaque (low-osmolar), 100 ml Physiologic Data Hemoglobin: 12.2 g/dl Weight: 99.3 kg BSA: 2.17 m2 Medications Ordered and Administered Start Time Stop Time Medication Dose Uni ts Route Ordered By Given By 11:02 Fentanyl 25 mcg IV Roosevelt Jarvis Jaime RN 11:02 Versed 0.5 mg IV Roosevelt Jarvis Jaime RN 11:05 1% Lidocaine 10 ml Subcut Roosevelt Jarvis Paul 11:06 Oxymask 6 l per min Partial rebrea Roosevelt Thurston Jaime RN 11:14 Heparin 7000 units IV Judy Jarvis Jaime RN I personally monitored the patient?s con scious sedation during the procedure. Conscious sedation starts with the first sedation medication dose of Fentanyl or Versed and ends when the procedure is completed, the patient is stable for recovery status, and the physician or other qualified health healthcare insurance sales agent providing the sedation ends personal continuous zqpk-in-atav time with the patient. The medications listed above were verbal ly ordered by me and read back to me as documented above. Refer to the procedure log report for ad ditional case details. electronically signed on 01/04/2022 11: 39:05 AM with status of Final Roosevelt Jarvis MD [place] [id number] [place] [address], [facility] [address]IP [address] [place] [address] (p) [phone](f) Provider Referring CV IMAGING XR ORTHOPANTOGRAM (01/03/2022 6:10 PM CDT) Anatomical Region Laterality Modality PANOREX Digital Radiography Specimen (Source) Anatomical Collection Method Collection Time Re ceived Time Location / / Volume Laterality 01/03/2022 8:33 PM CDT Narrative 01/03/2022 8:33 PM CDT For Patients: ??As a result of the Cures Act, medical imaging exams and procedure report s are released immediately into your [facility] medical record. ??You may view this report [...] For Patients: As a result of the ntury Cures Act, medical imaging exams and procedure reports are released immediately into your electronic medical record. You may view this report before your referring provider. If you have questions, please contact [facility] health care provider. 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 TECHNIQUE: Orthopantogram. COMPARISON: None. FINDINGS: Dental hardware. No lytic or blastic bon e lesions. No fracture. Dictated by Parker Pérez MD @ Jan 03 2022 8:33PM (Electronically Signed) Maxwell Kim MD GENERAL IMAGING (ABNORMAL) TROPONIN I (01/03/2022 9:48 AM CDT)Only the most recent of9 results within the time period is included. athologist Signature TROPONIN I 0.167 (H) <0.034 01/03/2022 [facility] ng/mL 11:11 AM CDT LABORATORY-CENT RAL LABORATORY Specimen Anatomical Collection Method / Collection Time Recei annie Time (Source) Location / Volume Laterality Blood BLOOD SPECIMEN / Venipuncture / 01/03/2022 9:48 2021 Unknown Unknown AM CDT 10:01 AM CDT Mak Woody MD CHEMISTRY Performing Organization Address City/State/ZIP Code Phon e Number [facility] [address] [place] [address] LABORATORY-CENTRAL 2000 LABORATORY (ABNORMAL) Lipid Panel AM (01/03/2022 9:48 AM CDT) [facility] Method Time Signature CHOLESTEROL,TOTAL 114 100 - 199 01/03/2022 [facility] mg/dL 3:12 PM CDT LABORATORY-LAURIE TRAL LABORATORY TRIGLYCERIDES 78 <150 01/03/2022 [facility] mg/dL 3:12 PM CDT LABORATORY-LAUR[facility] TRAL LABORATORY HDL CHOLESTEROL 39 (L) >40 mg/dL 01/03/2022 [facility] 3:12 PM CDT LABORATORY-[facility] TRAL LABORATORY NON-HDL 75 <145 01/03/2022 [facility] CHOLESTEROL mg/dl 3:12 PM CDT LABORATORY-[facility] TRAL LABORATORY CHOL/HDL RATIO 2.92 <4.50 01/03/2022 [facility] 3:12 PM CDT LABORATORY-[facility] TRAL LABORATORY LDL CHOLESTEROL 59 <=130 01/03/2022 [facility] mg/dL 3:12 PM CDT LABORATORY-[facility] TRAL LABORATORY VLDL CHOLESTEROL 16 <=30 01/03/2022 [facility] mg/dL 3:12 PM CDT LABORATORY-[facility] TRAL LABORATORY PROVIDER ORDERED RANDOM 01/03/2022 [facility] STATUS 3:12 PM CDT LABORATORY-[facility]UR[facility] TRAL LABORATORY Specimen Anatomical Collection Method / Collection Time Recei annie Time (Source) Location / Volume Laterality Blood BLOOD SPECIMEN / Venipuncture / 01/03/2022 9:48 2021 Unknown Unknown AM CDT 10:01 AM CDT Chava MARTIN CHEMISTRY Performing Organization Address City/State/ZIP Code Phon e Number [facility] [address] [place] [address] LABORATORY-CENTRAL 2000 LABORATORY CTA - TAVR (12/31/2021 2:05 PM CDT) Anatomical Region Laterality Modality CHEST, Abdomen, Pelvis Computed Tomograp hy Specimen (Source) Anatomical Location Collection Method / Collectio n Time Received Time / Laterality Volume Impressions 01/05/2022 1:06 PM CDT 1. ??Intermediate risk for coronary obstruction with the distance to the left main from the virtual valve of 4.5 mm and 4 mm to the right coronary artery. 2. ??Extensive coronary calcification, c annot fully assess the coronary arteries on CTA. 3. ??Elevated extracellular volume but n ot in the range of amyloidosis - 36%. 4. ??Either right or low transfemoral ac cess is adequate for a kowxv-al-tadyk procedure. 5. 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 MD KAMILAH Odom/santiago For Patients: As a result of the ntury Cures Act, medical imaging exams and procedure reports are released immediately into your electronic medical record. ??You may view this repo rt before your referring provider. ?? If you have questions, please contact yo health care provider. OVER-READ ??OVER-READ ??OVER-READ OVER-READ: DETAILED RADIOLOGY EXTRACARDI AC OVER-READ OF CARDIAC CT 12/31/2021 COMPARISON: ??Abdomen/pelvis CT 05/13/19 21. TECHNIQUE: ??CTA chest/abdomen/pelvis. ? ?Please see cardiology report for technical information. 120 cc of Omnipaque-350 IV. This exam is being performed in conjunct ion with the services provided by the [facility] ([facility]). CLINICAL HISTORY: ??Please see cardiolog y section of report. FINDINGS: ??Please see separate portion of report for cardiac and vascular findings. Mediastinum: Status post median sternoto my. No pericardial effusion. Normal esophagus. No mediastinal adenopa thy. Lungs: Central airways patent. No effusi on or pneumothorax. Bilateral pleural calcifications consistent with p rior asbestos exposure. Dependent opacities in lung bases bilaterally like ly atelectasis. No pulmonary nodules. Other chest: No axillary or supraclavicu lar adenopathy. Visualized portions of thyroid normal. Arterial phase imaging limits evaluation of the solid abdominal organs. Liver: No imaging evidence of cirrhosis. 9 mm arterially enhancing lesion in segment 2 likely flash filling megan ioma. Gallbladder: Status post cholecystectomy . Spleen: Normal. Pancreas: Normal. Adrenal glands: Normal. Kidneys: Bilateral renal atrophy, simila r to 2020. No hydronephrosis no mass. Bowel: No obstruction or ileus. No wall thickening. Moderate ascites. No pneumoperitoneum. Diverticulosis. Lymph nodes: No lymphadenopathy by CT si ze criteria. Pelvis: Urinary bladder decompressed but otherwise unremarkable. Prostate size within normal limits. Bones: No acute or aggressive appearing osseous lesions. IMPRESSION: ?? 1. Please see separate portion of report for cardiac and vascular findings. 2. Pleural calcifications consistent wit h prior asbestos exposure. 3. Small volume ascites. 4. Bilateral pulmonary opacities likely atelectasis. 5. Diverticulosis. Please note that all CT scans at this [facility] use dose modulation, iterative reconstruction, and/or weight- based dosing when appropriate to reduce radiation dose to as low as reaso nably achievable. Dictated by Rg Villa MD @ 01/04/20 9:42:13 AM Signed by: Rg Villa MD @01/03/2022 9:42:13 AM (Electronic Signature) Narrative 01/05/2022 1:06 PM CDT Results are automatically released to your [employer]) account once available, in compliance with angelica al regulations. ??This means that you may see your results before your pro vider has had a chance to review them. ??Please allow 2-3 business days f or your provider to comment on the results. STUDY: CARDIAC MORPHOLOGY CTA, CHEST, AB DOMEN AND PELVIC CTA, 12/31/2021 The patient breathed throughout the scan but the results are reliable. INDICATION: ??To assess cpftl-ak-yaavo o ptions. ??History of a #25 Magna aortic valve replacement with elevated g radient. STUDY PARAMETERS: ??Contrast used: Omnip aque 350, 120 mL; sequential, spiral, and FLASH scan; 2958 DLP. ??Siem ens SOMATOM Force [address] SCAN QUALITY: Good. FINDINGS: AORTIC VALVE: ??There is heavy calcifica tion in all leaflets of the #25 mm Magna bioprosthetic valve. Placing a virtual #29 Evolut valve withi n the Magna valve resulted in a 4.5 mm distance to the left main ostium. ??There was a 4 mm distance to the right coronary ostium. Using 1-1-1 orientation, the angle for d eployment is JORDANA 3 cranial 4. ?? Using a 1-2 (left main view) JORDANA 34 cran ial 21 degrees. Extracellular volume elevated at 36%. MEASUREMENTS FOR POSSIBLE TAVR ILIO-FEMORAL SYSTEM RIGHT LEFT Common iliac artery 12.3 x 7.9 mm 11.4 x 8.3 mm External iliac artery 10.5 x 8.4 mm 10 x 7.4 mm Common femoral artery 9.4 x 7.3 mm 11 x 8.8 mm CORONARY ARTERIES: ??There is extensive coronary calcification. ??The patient was breathing. ??Assessment of t he coronary arteries is not fully adequate on the coronary CT angiogram. Abhishek Mazariegos MD CT SCAN-CARDIAC STRIP (12/31/2021 7:16 AM CDT) Narrative This result has an attachment that is no t available. Scanner OTHER (ABNORMAL) BLOOD GAS,VENOUS (12/31/2021 4:23 AM CDT)Only the most recent of6 resultswithin the time period is included. [facility] Method Time Signature PH, VENOUS 7.32 7.32 - 7.43 12/31/2021 [employer] 4:53 AM CDT LABORATORY-LAURIE TRAL LABORATORY PCO2, VENOUS 62 (H) 41 - 51 12/31/2021 [facility] mmHg 4:53 AM CDT LABORATORY-[facility] TRAL LABORATORY PO2, VENOUS 32 (L) 35 - 40 12/31/2021 [facility] mmHg 4:53 AM CDT LABORATORY-[facility] TRAL LABORATORY HCO3,VENOUS 32 (H) 22 - 29 12/31/2021 [facility] mmol/L 4:53 AM CDT LABORATORY-[facility] TRAL LABORATORY BASE EXCESS, 4.0 (H) -2.0 - 3.0 12/31/2021 [facility] VENOUS, POCT 4:53 AM CDT LABORATORY-[facility] TRAL LABORATORY O2 SATURATION, 64 (L) 70 - 75 % 12/31/2021 [facility] VENOUS 4:53 AM CDT LABORATORY-[facility] TRAL LABORATORY PATIENT 37.0 Degrees C 12/31/2021 [facility] TEMPERATURE 4:53 AM CDT LABORATORY-[facility]IE TRAL LABORATORY Specimen Anatomical Collection Method Collection Time Receive d Time (Source) Location / / Volume Laterality Blood BLOOD SPECIMEN / Butterfly / 12/31/2021 4:23 AM 12/31 4:42 Unknown Unknown CDT AM CDT Corin Doan MD CHEMISTRY Performing Organization Address City/State/ZIP Code Phon e Number [facility] [address] [place] [address] LABORATORY-CENTRAL 2000 LABORATORY SCAN-CARDIAC STRIP (12/30/2021 7:00 [...] that is no t available. Scanner OTHER HBSAG (HBS) (12/28/2021 8:37 AM CDT) [facility] Method Time Signature HBSAG Nonreactive Nonreactive 12/28/2021 [facility] 9:08 PM CDT LABORATORY-[facility]IE TRAL LABORATORY Specimen Anatomical Collection Method Collection Time Receive d Time (Source) Location / / Volume Laterality Blood BLOOD SPECIMEN / Butterfly / 12/28/2021 8:37 AM 12/28 8:53 Unknown Unknown CDT AM CDT Krys Carrasco MD SEND OUTS Performing Organization Address City/[facility]/ZIP Code Phon e Number [email or web address] [address] [place] [address] LABORATORY-CENTRAL 1999 LABORATORY (ABNORMAL) Phosphorus AM (12/28/2021 8:37 AM CDT)Only the most recent of2 resultswithin the time period is included. P athologist Signature PHOSPHORUS 5.1 (H) 2.3 - 4.7 12/28/2021 [facility] mg/dL 9:14 AM CDT LABORATORY-CENT RAL LABORATORY Specimen Anatomical Collection Method Collection Time Receive d Time (Source) Location / / Volume Laterality Blood BLOOD SPECIMEN / Butterfly / 12/28/2021 8:37 AM 12/28 8:53 Unknown Unknown CDT AM CDT Corin Doan MD CHEMISTRY Performing Organization Address City/[facility] Phon e Number [facility] [address] [place] [address] LABORATORY-CENTRAL 1999 LABORATORY SCAN-CARDIAC STRIP (12/27/2021 7:38 PM CDT) Narrative This result has an attachment that is no t available. Scanner OTHER (ABNORMAL) Sputum culture (12/27/2021 5:10 PM CDT) Patholo gist Method Time Signature CULTURE RESULT (A) 12/30/2021 [facility] 10:58 AM CDT LABORATORY-[facility]URIE TRAL LABORATORY CULTURE 3+ Serratia 12/30/2021 [facility] marcescens 10:58 AM CDT LABORATORY-LAURIE TRAL LABORATORY Comment: Oral cephalosporins are not rec ommended due to concern for derepression of AmpC beta-lactamases. CULTURE 3+ Staphylococcus 12/30/2021 10:58 [facility] aureus AM CDT LABORATORY-CENTRAL LABORATORY CULTURE 3+ Usual Liset 12/30/2021 10:58 [facility] AM CDT LABORAT[facility]-CENTRAL LABORATORY GRAM STAIN 2+ PMNs [facility]/30[facility]2021 [facility] LABORATORY GRAM STAIN 4+ Yeast 12/30/2021 10:58 [facility]-CENTRAL LABORATORY GRAM STAIN 4+ Gram Positive 12/30/2021 10:58 [facility] Bacilli AM CDT LABORATORY-CENTRAL LABORATORY GRAM STAIN 2+ Gram Positive Cocci 12/30/2021 10:58 [facility] AM CDT LABORATORY-CENTRAL LABORATORY GRAM STAIN 2+ Gram Negative 12/30/2021 10:58 [facility] Bacilli AM CDT LABORATORY-CENTRAL LABORATORY Specimen [...] Address City/State/ZIP Code Phon e Number [facility] [address] [place] [address] LABORATORY-CENTRAL 2000 LABORATORY (ABNORMAL) MRSA/SA PCR (12/27/2021 12:38 PM CDT) [facility] Method Time Signature MRSA DNA PCR Negative Negative 12/27/2021 [facility] [employer] 3:43 PM CDT LABORATORY-CE NTRAL LABORATORY STAPHYLOCOCCUS Positive Negative 12/27/2021 [facility] [employer] AUREUS PCR (A) 3:43 PM CDT LABORATORY-CE NTRAL LABORATORY Specimen Anatomical Collection Method Collection Time Receive d Time (Source) Location / / Volume Laterality Other SPECIMEN FROM Non-Blood / 12/27/2021 12:38 12/27/2021 INTERNAL NOSE / Unknown PM CDT 12:47 PM CDT Unknown Narrative [facility] LABORATORY-CENTRAL LABORAT ORY - 12/27/2021 3:43 PM CDT S. aureus detected; NOT MRSA. Test result does not preclude MRSA nasal colonization. False negative for MRSA could be obtained if MRSA present in the sample is below threshold of detection. Corin Doan MD MICROBIOLOGY Performing Organization Address City/State/ZIP Code Phon e Number [facility] [address] [place] [address] LABORATORY-CENTRAL 2000 LABORATORY ECHO COMPLETE W CONTRAST [...] CDT Narrative 12/27/2021 1:36 PM CDT ECHOCARDIOGRAM JONATAN MEJIA ? Accessi on#: ?? [id number] : ?1945 76 years Study Date: ?? 12/27/2021 10:51:49 AM Gender: M ?BP: ? 101/56 mmHg Height: 177.00 cm ?BSA: ?2.23 m? ?? Weight: 107.00 kg ?Tech: ? AH ? Referring MD: MAK WOODY Site: ? [facility] Reading Location: [facility] IP Procedure: 2D w/ [...] . This study was interpreted by an [facility] redited facility. ??Final ?? Procedure Note Kaylee Hdz MD - 12/28/2021For matting of this note might be different from the original. ECHOCARDIOGRAM JONATAN MEJIA : 1945 76 years Study Date: 12/18 10:51:49 AM Gender: M BP: 101/56 mmHg Height: 177.00 cm BSA: 2.23 m? ?? Weight: 107.00 kg Tech: Referring MD: MAK WOODY Site: [facility] Reading Location: [facility] Procedure: 2D w/ Contrast, Color Doppler and [...] . This study was interpreted by an [facility]. Final Mak Woody MD ECHO ORD VANCOMYCIN (12/27/2021 10:41 AM CDT) [facility] Method Time Signature VANCOMYCIN 15.2 ug/mL 12/27/2021 [facility] 11:18 AM CDT LABORATORY-LAURIE TRAL LABORATORY [...] Organization Address City/State/ZIP Code Phon e Number [facility] [address] [place] [address] LABORATORY-CENTRAL 2000 LABORATORY SCAN-CARDIAC STRIP (12/27/2021 3:35 AM CDT) Narrative This result has an attachment that is no t available. Scanner OTHER COVID 19 (12/27/2021 2:50 AM CDT) Analysis Performed At Patho logist Time Signature COVID 19 Negative Negative 12/27/2021 [facility] 1:47 PM CDT LABORATORY-LAURIE MOLECULAR [...] CDT AM CDT STRUCTURE / Unknown Narrative [facility] LABORATORY-CENTRAL LABORAT ORY - 12/27/2021 1:47 [...] the authorization is terminated or revoked sooner. Mak Woody MD MICROBIOLOGY Performing Organization Address City/State/ZIP Code Phon e Number [facility] [address] [place] [address] LABORATORY-CENTRAL 2000 LABORATORY COVID 19 COLLECTION (12/27/2021 2:50 AM CDT) [facility] Method Time Signature TESTING [facility] 12/27/2021 [facility] LABORATORY Laboratory 3:26 AM CDT LABORATORY-CE NTRAL LABORATORY Comment: Specimen submitted to [facility] Laboratory for testing. Specimen Anatomical Location / Collection Method Collection Ruslan e Received Time (Source) Laterality / Volume Other SPECIMEN FROM Non-Blood / 12/27/2021 2:50 12/27/2021 3:24 NASOPHARYNGEAL Unknown AM CDT AM CDT STRUCTURE / Unknown Mak Woody MD SEND OUTS Performing Organization Address [facility] Phon e Number [facility] [employer] [address] [place] [address] LABORATORY-CENTRAL 2000 LABORATORY LACTATE VENOUS (12/27/2021 2:45 AM CDT)Only the most recent of2 resultswithin the time period is included. athologist Signature LACTATE,VENOUS 1.3 0.5 - 2.0 12/27/2021 [facility] mmol/L 3:15 AM CDT LABORATORY-[facility] LABORATORY Specimen Anatomical Collection Method Collection Time Receive d Time (Source) Location / / Volume Laterality Blood BLOOD SPECIMEN / Butterfly / 12/27/2021 2:45 AM 12/27 2:52 Unknown Unknown CDT AM CDT Beto Abarca MD CHEMISTRY Performing Organization Address [facility] Phon e Number [facility] [employer] [address] [place] [address] LABORATORY-CENTRAL 2000 LABORATORY (ABNORMAL) POTASSIUM (12/27/2021 1:33 AM CDT) athologist Signature POTASSIUM 5.8 (H) 3.5 - 5.0 12/27/2021 [facility] mmol/L 1:54 AM CD[facility] Specimen Anatomical Collection Method Collection Time Receive d Time (Source) Location / / Volume Laterality Blood BLOOD SPECIMEN / Butterfly / 12/27/2021 1:33 AM 12/27 1:37 Unknown Unknown CDT AM CDT Beto Abarca MD CHEMISTRY Performing Organization Address [facility] Phon e Number [facility] [employer] [address] [place] [address] LABORATORY-CENTRAL 2000 LABORATORY BLOOD CULTURE X2 (12/27/2021 12:59 AM CDT)Only the most recent of2 resultswithin the time period is included. athologist Signature CULTURE No Growth. 01/01/2022 [facility] 2:24 AM CD[facility] Specimen Anatomical Collection Method Collection Time Receive d Time (Source) Location / / Volume Laterality Blood BLOOD SPECIMEN / Butterfly / 12/27/2021 12:59 022 1:09 Unknown Unknown AM CDT AM CDT Narrative [facility] LABORATORY-CENTRAL LABORAT ORY - 01/01/2022 2:24 AM CDT Low volume blood culture received; possi ble false negative culture. Beto Abarca MD MICROBIOLOGY Performing Organization Address City/State/ZIP Code Phon e Number [facility] [address] [facility] [place] [address] LABORATORY-CENTRAL 2000 LABORATORY (ABNORMAL) LACTATE SCREEN VENOUS ISTAT W PUGH (12/27/2021 12:17 AM CDT) [facility] gist Method Time Signature LACTATE Intermediate (A) <=2.0 12/27/2021 [facility] VENOUS SCREEN 12:28 AM LABORATORY-CE ISTAT CDT NTRAL LABORATORY LACTATE 2.3 (H) <=2.0 12/27/2021 [facility]ALTH SCREEN VENOUS 12:28 AM LABORATORY-CE POCT CDT NTRAL LABORATORY Specimen Anatomical Collection Method Collection Time Receive d Time (Source) Location / / Volume Laterality Blood BLOOD SPECIMEN / 12/27/2021 12:17 022 Unknown AM CDT 12:28 AM CDT Narrative [facility] LABORATORY-CENTRAL LABORAT ORY - 12/27/2021 12:28 AM CDT Lactate screen results of 2.1-3.9 mmol/L are reported as Intermediate. Lactate screen results of 4.0 mmol/L or greater are rep orted as Critical. Elevated whole blood lactate screening results >2.0 are autom atically referred for confirmatory plasma lactate quantitation. Beto Abarca MD LABORATORY Performing Organization Address City/State/ZIP Code Phon e Number [facility] [address] [facility] [place] [address] LABORATORY-CENTRAL 2000 LABORATORY EXTRA TUBE PUGH ON ICE (12/27/2021 12:10 AM CDT) Specimen Anatomical Collection Method / Collection Time Recei annie Time (Source) Location / Volume Laterality Blood BLOOD SPECIMEN / Non-Lab 12/27/2021 12:10 022 Unknown Venipuncture / AM CDT 12:30 AM CDT Unknown Narrative [facility] LABORATORY-CENTRAL LABORAT OR - 12/27/2021 6:31 AM CDT Corrected Collection Time Only Beto Abarca MD LABORATORY Performing Organization Address City/State/ZIP Code Phon e Number [email or web address] [address] [place] [address] LABORATORY-CENTRAL 2000 LABORATORY (ABNORMAL) CBC WITH AUTO DIFFERENTIAL (12/27/2021 12:10 AM CDT) [facility] Method Time Signature WHITE BLOOD 13.0 (H) 4.5 - 12/27/2021 [facility] COUNT 11.0 6:26 AM CDT LABORATORY-LAURIE thou/cu TRAL mm LABORATORY RED BLOOD COUNT 3.99 (L) 4.30 - 12/27/2021 [facility] [employer] 5.90 6:26 AM CDT LABORATORY-LAURIE mil/cu mm TRAL LABORATORY HEMOGLOBIN 12.6 (L) 13.5 - 12/27/2021 [facility] [employer] 17.5 g/dL 6:26 AM CDT LABORATORY-LAURIE TRAL LABORATORY HEMATOCRIT 38.7 37.0 - 12/27/2021 [facility] [employer] 53.0 % 6:26 AM CDT LABORATORY-LAURIE TRAL LABORATORY MCV 97 80 - 100 12/27/2021 [facility] [employer] fL 6:26 AM CDT LABORATORY-LAURIE TRAL LABORATORY MCH 31.6 26.0 - 12/27/2021 [facility] [employer] 34.0 pg 6:26 AM CDT LABORATORY-LAUREI TRAL LABORATORY MCHC 32.6 32.0 - 12/27/2021 [facility] [employer] 36.0 g/dL 6:26 AM CDT LABORATORY-LAURIE TRAL LABORATORY RDW 16.9 (H) 11.5 - 12/27/2021 [facility] [employer] 15.5 % 6:26 AM CDT LABORATORY-LAURIE TRAL LABORATORY PLATELET COUNT 191 140 - 440 12/27/2021 [facility] [employer] thou/cu 6:26 AM CDT LABORATORY-LAURIE mm TRAL LABORATORY MPV 9.7 6.5 - 12/27/2021 [facility] [employer] 11.0 fL 6:26 AM CDT LABORATORY-LAURIE TRAL LABORATORY NRBC 0.0 % 12/27/2021 [facility] [employer] 6:26 AM CDT LABORATORY-LAURIE TRAL LABORATORY ABS NRBC 0.0 thou /cu 12/27/2021 [facility] mm 6:26 AM CDT LABORATORY-LAURIE TRAL LABORATORY % NEUT 87.4 % 12/27/2021 [facility] [employer] 6:26 AM CDT LABORATORY-LAURIE TRAL LABORATORY % LYMPH 2.4 % 12/27/2021 [facility] 6:26 AM CDT LABORATORY-LAURIE TRAL LABORATORY % MONO 9.6 % 12/27/2021 [facility] 6:26 AM CDT LABORATORY-LAURIE TRAL LABORATORY % EOS 0.0 % 12/27/2021 [facility] 6:26 AM CDT LABORATORY-LAURIE TRAL LABORATORY % BASO 0.2 % 12/27/2021 [facility] 6:26 AM CDT LABORATORY-LAURIE TRAL LABORATORY % IMMATURE GRAN 0.4 % 12/27/2021 [facility] (METAS,MYELOS,IN 6:26 AM CDT LABORATORY- LAURIE OS) TRAL LABORATORY ABSOLUTE 11.4 (H) 1.7 - 7.0 12/27/2021 [facility] NEUTROPHILS thou/cu 6:26 AM CDT LABORATORY-LAURIE mm TRAL LABORATORY ABSOLUTE 0.3 (L) 0.9 - 2.9 12/27/2021 [facility] LYMPHOCYTES thou/cu 6:26 AM CDT LABORATORY-LAURIE mm TRAL LABORATORY ABSOLUTE 1.3 (H) <0.9 12/27/2021 [facility] MONOCYTES thou/cu 6:26 AM CDT LABORATORY-LAURIE mm TRAL LABORATORY ABSOLUTE 0.0 <0.5 12/27/2021 [facility] EOSINOPHILS thou/cu 6:26 AM CDT LABORATORY-LAURIE mm TRAL LABORATORY ABSOLUTE 0.0 <0.3 12/27/2021 [facility] BASOPHILS thou/cu 6:26 AM CDT LABORATORY-LAURIE mm TRAL LABORATORY ABSOLUTE 0.1 <0.3 12/27/2021 [facility] IMMATURE thou/cu 6:26 AM CDT LABORATORY-LAURIE GRANULOCYTES(MET mm TRAL ,MYELOS,PROS) LABORATORY Specimen Anatomical Collection Method / Collection Time Recei annie Time (Source) Location / Volume Laterality Blood BLOOD SPECIMEN / Non-Lab 12/27/2021 12:10 022 Unknown Venipuncture / AM CDT 12:21 AM CDT Unknown Narrative [facility] LABORATORY-CENTRAL LABORAT ORY - 12/27/2021 6:26 AM CDT Corrected Collection Time Only Beto Abarca MD HEMATOLOGY Performing Organization Address City/State/ZIP Code Phon e Number [facility] [address] [place] [address] LABORATORY-CENTRAL 2000 LABORATORY (ABNORMAL) PROCALCITONIN (12/27/2021 12:10 AM CDT) Analysis Performed At Patho logist Time Signature PROCALCITONIN 0.80 (H) <0.50 12/27/2021 [facility] ng/ml 6:25 AM CDT LABORATORY-LAURIE TRAL LABORATORY Specimen Anatomical Collection Method / Collection Time Recei annie Time (Source) Location / Volume Laterality Blood BLOOD SPECIMEN / Non-Lab 12/27/2021 12:10 022 Unknown Venipuncture / AM CDT 12:21 AM CDT Unknown Narrative [facility] LABORATORY-CENTRAL LABORAT ORY - 12/27/2021 6:25 [...] Abarca MD SEND OUTS Performing Organization Address [facility] Phon e Number [employer] [address] [place] [address] LABORATORY-CENTRAL 1999 LABORATORY (ABNORMAL) PROTIME-INR (12/27/2021 12:10 AM CDT) athologist Signature INR 1.4 (H) <1.3 12/27/2021 [facility] 6:29 AM CDT LAB[facility] LABORATORY PROTIME 16.2 (H) 12.0 - 13.8 12/27/2021 [facility] sec 6:29 AM CDT LAB[facility]ATORY-[facility] LABORATORY Specimen Anatomical Collection Method / Collection Time Recei annie Time (Source) Location / Volume Laterality Blood BLOOD SPECIMEN / Non-Lab 12/27/2021 12:10 022 Unknown Venipuncture / AM CDT 12:21 AM CDT Unknown Narrative [facility] LABORATORY-CENTRAL LABORAT ORY - 12/27/2021 6:29 [...] Beto Abarca MD HEMATOLOGY Performing Organization Address [facility] Phon e Number [email or web address] [address] [place] [address] LABORATORY-CENTRAL 1999 LABORATORY (ABNORMAL) COMP METABOLIC PANEL (12/27/2021 12:10 AM CDT) P athologist Signature SODIUM 131 (L) 135 - 145 12/27/2021 [facility] mmol/L 6:24 AM CDT LABORATORY-[facility] LABORATORY POTASSIUM 12/27/2021 [facility] 6:24 AM CDT LABORATORY-[facility] LABORATORY Comment: Canceled- Specimen Hemolyzed CHLORIDE 93 (L) 98 - 110 12/27/2021 6:24 [facility] mmol/L AM T LABORATORY-CENTRAL LABORATORY CO2,TOTAL 19 (L) 21 - 31 12/27/2021 6:24 [facility] mmol/L AM T LABORATORY-CENTRAL LABORATORY ANION GAP 19 (H) 5 - 18 12/27/2021 6:24 [facility] LABORATORY GLUCOSE 137 (H) 65 - 100 12/27/2021 6:24 [facility] mg/dL AM T LABORATORY-CENTRAL LABORATORY CALCIUM 9.5 8.5 - 10.5 12/27/2021 6:24 [facility] mg/dL AM T LABORATORY-CENTRAL LABORATORY BUN 60 (H) 8 - 25 mg/dL 12/27/2021 6:24 [facility] TH AM T LABORATORY-CENTRAL LABORATORY CREATININE 7.95 (HH) 0.72 - 1.25 12/27/2021 6:24 [facility] mg/dL AM T LABORATORY-CENTRAL LABORATORY BUN/CREAT RATIO 8 (L) 10 - 20 12/27/2021 6[facility] ALBUMIN 3.7 3.2 - 4.6 12/27/2021 6:24 [facility] g/dL AM T LABORATORY-CENTRAL LABORATORY PROTEIN,TOTAL 12/27/2021 6[facility] Comment: Canceled- Specimen Hemolyzed GLOBULIN 12/27/2021 6:24 AM [facility] LABORATORY-CENTRAL LABORATORY Comment: Canceled- Specimen Hemolyzed A/G RATIO 12/27/2021 6:24 AM [facility] LABORATORY-CENTRAL LABORATORY Comment: Canceled- Specimen Hemolyzed BILIRUBIN,TOTAL 0.7 0.2 - 1.2 mg/dL 12/27/2021 6:24 AM [facility] LABORATORY-CENTRAL LABORATORY ALK PHOSPHATASE 99 50 - 136 IU/L 12/27/2021 6:24 AM [facility] LABORATORY-CENTRAL LABORATORY ALT (SGPT) 28 8 - 45 IU/L 12/27/2021 6:24 AM [facility] LAB[facility]-CENTRAL LABORATORY AST (SGOT) 12/27/2021 6:24 AM [facility] LABORATORY-CENTRAL LABORATORY Comment: Canceled- Specimen Hemolyzed eGFR 7 (L) >90 mL/min/1.73m2 12/27/2021 6:24 AM CDT [facility] LABORATORY-CENTRAL L ABORATORY Comment: As of 2021, [...] AM CDT 12:21 AM CDT Unknown Narrative [facility] LABORATORY-CENTRAL LABORAT ORY - 12/27/2021 6:24 AM CDT Corrected Collection Time Only Beto Abarca MD CHEMISTRY Performing Organization Address City/State/ZIP Code Phon e Number [facility] [address] [place] [address] LABORATORY-CENTRAL 1999 LABORATORY SCAN-RADIOLOGY REPORT (12/22/2021 12:00 AM CDT) Narrative This result has an attachment that is no t available. Scanner OTHER (ABNORMAL) LIPID PANEL W REFLEX MEASURED LDL (11/30/2021 12:45 PM CDT) [facility] Method Time Signature CHOLESTEROL,TOTAL 94 (L) 100 - 199 12/01/2021 [facility] mg/dL 10:04 AM CDT LABORATORY-[facility] TRAL LABORATORY TRIGLYCERIDES 56 <150 12/01/2021 [facility] mg/dL 10:04 AM CDT LABORATORY-[facility] TR[facility] LABORATORY HDL CHOLESTEROL 33 (L) >40 mg/dL 12/01/2021 [facility] 10:04 AM CDT LABORATORY-[facility] TR[facility] LABORATORY NON-HDL 61 <145 12/01/2021 [facility] CHOLESTEROL mg/dl 10:04 AM CDT LABORATORY-[facility] TR[facility] LABORATORY CHOL/HDL RATIO 2.85 <4.50 12/01/2021 [facility] 10:04 AM CDT LABORATORY-[facility] LABORATORY LDL CHOLESTEROL 50 <=130 12/01/2021 [facility] [employer] mg/dL 10:04 AM CDT LABORATORY-[facility] LABORATORY VLDL CHOLESTEROL 11 <=30 12/01/2021 [facility] mg/dL 10:04 AM CDT LAB[facility]AT[facility] LABORATORY PROVIDER ORDERED RANDOM 12/01/2021 [facility] STATUS 10:04 AM CDT LAB[facility]ATORY-[facility] LABORATORY Specimen Anatomical Collection Method / Collection Time Recei annie Time (Source) Location / Volume Laterality Blood BLOOD SPECIMEN / Venipuncture / 11/30/2021 12:45 11/30 1:44 Unknown Unknown PM CDT PM CDT Phuc Porter MD CHEMISTRY Performing Organization Address City/State/ZIP Code Phon e Number [facility] [address] [facility] [place] [address] LABORATORY-CENTRAL 2000 LABORATORY ANTI HCV (11/30/2021 12:45 PM CDT) [facility] gist Method Time Signature HEPATITIS C Non-Reacti Non-Reacti 12/03/2021 [employer] HEALTH ANTIBODY ve ve 4:28 PM CDT LABORATORY-LAURIE TRAL LABORATORY Comment: Antibodies to HCV not detected; does not exclude the possibility of exposure to HCV. Specimen Anatomical Collection Method / Collection Time Recei annie Time (Source) Location / Volume Laterality Blood BLOOD SPECIMEN / Venipuncture / 11/30/2021 12:45 11/30 1:44 Unknown Unknown PM CDT PM CDT Phuc Porter MD SEND OUTS Performing Organization Address City/[facility]/ZIP Code Phon e Number [employer] [phone] [facility] [place] [address] LABORATORY-CENTRAL 2000 LABORATORY URIC ACID (11/30/2021 12:45 PM CDT) athologist Signature URIC ACID 3.8 3.5 - 7.2 12/01/2021 [employer] mg/dL 10:04 AM CDT LABORATORY-CENTR AL LABORATORY Specimen Anatomical Collection Method / Collection Time Recei annie Time (Source) Location / Volume Laterality Blood BLOOD SPECIMEN / Venipuncture / 11/30/2021 12:45 11/30 1:44 Unknown Unknown PM CDT PM CDT Phuc Porter MD CHEMISTRY Performing Organization Address City/[facility]/ZIP Code Phon e Number [employer] [phone] [facility] [place] [address] LABORATORY-CENTRAL 2000 LABORATORY HEMOGLOBIN A1C MONITORING (POCT) (11/30/2021 12:45 PM CDT) P athologist Signature HEMOGLOBIN A1C 5.7 <=6.4 % 11/30/2021 [facility] MONITORING 1:02 PM CDT [facility] (POCT) [facility] Specimen Anatomical Collection Method / Collection Time Recei annie Time (Source) Location / Volume Laterality Blood BLOOD SPECIMEN / Venipuncture / 11/30/2021 12:45 11/30 1:02 Unknown Unknown PM CDT PM CDT Narrative [facility] - 2021 1:02 PM CDT ? (<=6.9%) ? Indicates good control ? (7.0% to 7.9%) ? Indicates fa ir control ? (>=8.0%) ? Indicates poor control ?? NOTE: ??These thresholds are guideli jereym and ?individual targets may va ry. Falsely low levels may be seen with: Recent Transfusion, Recent Significant B lood Loss, Hemolytic Diseases, or Falsely elevated levels may be seen with : Untreated Anemias, Splenectomy ? Phuc Porter MD CHEMISTRY Performing Organization Address City/State/ZIP Code Phon e Number [facility] [address] [place] [address] from Last 3 Months Insurance Payer Benefit Plan / Subscriber ID Effective Dates Phone Addre ss Type Group MEDICARE PART B MEDICARE PART B [id number] 2011-Sameer ATTN: CLAIMS - HB USE ONLY HB ONLY t [address] [place] [address] BLUE CROSS MR BLUE CROSS [id number] 2018-Sameer [address] MEDICARE [place], [place] [id number] Advance Directives Latest Code Status on File Code Status Date Activated Date Inactivated Comments Full Code 12/27/2021 3:36 AM 01/14/2022 5:16 PM Code Status Discussion: Reviewed Preferences Full Code 07/21/2020 9:53 AM 07/21/2020 9:23 PM Code Status Discussion: Not Discussed Full Code 04/25/2019 10:38 PM 04/29/2019 6:50 PM Full Code 03/05/2019 4:04 PM 03/12/2019 4:23 PM Code Status Discussion: Discussed Full Code 10/06/2008 1:41 AM 10/20/2008 1:45 PM Care Teams Security Intelligence Analyst Relationship Specialty Start Date End Date Phuc Porter MD PCP - General Family Practice 07/17/20 [address] [place] [address]
== END 2022-02-24 13:18 | disposition home or self-care (01) ==
LOC: RAD 13:18
PROVIDERS: PCP Family Medicine; Visit Provider Pathology Anatomic Pathology & Clinical Pathology
DX: I35.0 Nonrheumatic aortic (valve) stenosis (principal); I51.7 Cardiomegaly
CPT/HCPCS: 93306

== ENCOUNTER 2022-07-24 13:22 | Emergency (ER) | payer MEDICARE, SELFPAY ==
[2022-07-24] VITALS (34 sets, daily range): BP systolic 120–183; BP diastolic 51–136; PULSE 94–144; RESP 22–40; TEMP 36.6–36.8; O2SAT 87–100; BMI 31.9
--- NOTE | 2022-07-24 13:42 | CRLHL7_ITS ---
For Patients: As a result of the Cures Act, medical imaging exams and procedure reports are released immediately into your electronic medical record. You may view this report before your referring provider. If you have questions, please contact your health care provider. INDICATION: Cough TECHNIQUE: Single view chest. Comparison chest x-ray 12/22/2021 FINDINGS: Enlarged cardiac silhouette, stable. Median sternotomy. Diffuse prominent interstitial markings with bibasilar patchy opacities. No effusions. Findings may represent pulmonary edema. Superimposed right lower lobe pneumonia not excluded. No effusion no pneumothorax. Dictated by Keerthi Cullen MD @ 07/24/2022 2:44:40 PM (Electronically Signed)
--- NOTE | 2022-07-24 13:45 | ED_ITS ---
HPI - General Adult General Chief complaint: Shortness of Breath/Dyspnea Stated complaint: Difficulty breathing Time Seen by Provider: 07/24/22 13:25 History of Present Illness HPI narrative: Patient is a 76 year white male who is on chronic dialysis for end-stage renal failure, he has COPD, atrial fibrillation, has a porcine valve. He reports for the last 5 days had increased cough congestion his breathing has been a little bit more short than normal he is scheduled dialysis do dialysis tomorrow. He has had a history of cough and congestion over the last 4 5 days. He was hospitalized at [facility] for prolonged period with RSV. He feels like there is ?congestion? in his lungs. He has no leg swelling or edema. He has been dialyzing fully this week, no GI bleeding, no chest pain. He lives just outside of [place]. Related Data Home Medications Medication Instructions Recorded Confirmed allopurinol 100 mg tablet 100 mg PO DAILY 12/22/21 07/24/22 fluticasone propionate 115 2 inh inhalation Q12H 12/22/21 07/24/22 mcg-salmeterol 21 mcg/actuation HFA inhaler (Advair HFA) ipratropium 0.5 mg-albuterol 3 mg ml inhalation 12/22/21 (2.5 mg base)/3 mL nebulization soln metoprolol succinate 25 mg 12.5 mg PO DAILY 12/22/21 07/24/22 tablet,extended release 24 hr pantoprazole 40 mg tablet,delayed 40 mg PO DAILY 12/22/21 07/24/22 release sevelamer carbonate 800 mg tablet 800 mg PO TID 12/22/21 07/24/22 atorvastatin 40 mg tablet 40 mg PO DAILY 07/24/22 07/24/22 clopidogrel 75 mg tablet 75 mg PO DAILY 07/24/22 07/24/22 midodrine 10 mg tablet 10 mg PO PRN 07/24/22 07/24/22 Allergies Allergy/AdvReac Type Severity Reaction Status Date / Time lisinopril AdvReac Unknown Verified 10/08/21 14:10 Review of Systems Status of ROS: Reports: 6 or more systems reviewed and unremarkable except as noted in History and below PFSH PFSH Social History Smoking Status: Never smoker Do you use any of these nicotine containing products: None Second hand tobacco smoke exposure: No How often do you have a drink containing alcohol: never How often do you have six or more drinks on one occasion: Never AUDIT-C Alcohol total score: 0 Non-prescribed substance use: denies use Exam Narrative: Exam Narrative: Objective: Vital signs look largely unremarkable and slightly hypertensive, O2 sat 87% on room air however, increases with oxygen HEENT is unremarkable in general the patient is appears to have slightly pale color consistent with renal 5th failure, he has a frequent cough that is congested and los Pulses irregular regular Heart irregular rhythm with 2 per stalk ejection murmur Lung exam shows some wheezing at the bases, there are some rales at the bases that clear somewhat with the cough. Abdomen benign Extremities are no edema Neurologic nonfocal His shunt on the left arm is intact Neurologic is nonfocal Const: Vital Signs, click to edit/add: Vital Signs - 24 hr 07/24/22 13:29 07/24/22 14:00 07/24/22 14:00 Temperature 98.2 F Pulse Rate Pulse Rate [Right Pulse Oximeter] 96 Respiratory Rate 22 Blood Pressure Blood Pressure [Ri ght Upper Arm] 173/97 H Pulse Oximetry 87 L 90 90 Oxygen Delivery Me thod Room Air OxyMask Oxygen Flow Rate 5 07/24/22 14:30 07/24/22 14:34 07/24/22 14:35 Temperature Pulse Rate 120 H 144 H Pulse Rate [Right Pulse Oximeter] 126 H Respiratory Rate 40 H Blood Pressure 183/72 H Blood Pressure [Ri ght Upper Arm] 183/72 H Pulse Oximetry 94 100 100 Oxygen Delivery Me thod OxyMask Oxygen Flow Rate 5 07/24/22 14:45 07/24/22 14:47 07/24/22 14:48 Temperature Pulse Rate 130 H 124 H 130 H Pulse Rate [Right Pulse Oximeter] Respiratory Rate Blood Pressure 175/136 H Blood Pressure [Ri ght Upper Arm] Pulse Oximetry 89 93 96 Oxygen Delivery Me thod Oxygen Flow Rate 07/24/22 15:00 07/24/22 15:04 07/24/22 15:15 Temperature Pulse Rate 135 H 132 H 130 H Pulse Rate [Right Pulse Oximeter] Respiratory Rate Blood Pressure 161/78 H Blood Pressure [Ri ght Upper Arm] Pulse Oximetry 94 96 97 Oxygen Delivery Me thod Oxygen Flow Rate 07/24/22 15:16 07/24/22 15:30 07/24/22 15:32 Temperature Pulse Rate 122 H 102 H 112 H Pulse Rate [Right Pulse Oximeter] Respiratory Rate Blood Pressure 131/90 H 137/51 L Blood Pressure [Ri ght Upper Arm] Pulse Oximetry 97 96 97 Oxygen Delivery Me thod Oxygen Flow Rate 07/24/22 15:45 07/24/22 15:46 07/24/22 16:01 Temperature Pulse Rate 113 H 114 H 104 H Pulse Rate [Right Pulse Oximeter] Respiratory Rate Blood Pressure 133/75 120/63 Blood Pressure [Ri ght Upper Arm] Pulse Oximetry 98 98 98 Oxygen Delivery Me thod Oxygen Flow Rate 07/24/22 16:01 07/24/22 16:15 07/24/22 16:17 Temperature Pulse Rate 122 H 112 H 114 H Pulse Rate [Right Pulse Oximeter] Respiratory Rate Blood Pressure 122/66 Blood Pressure [Ri ght Upper Arm] Pulse Oximetry 97 98 98 Oxygen Delivery Me thod Oxygen Flow Rate 07/24/22 16:30 07/24/22 16:32 07/24/22 16:32 Temperature Pulse Rate 116 H 124 H 125 H Pulse Rate [Right Pulse Oximeter] Respiratory Rate Blood Pressure 139/86 Blood Pressure [Ri ght Upper Arm] Pulse Oximetry 100 100 100 Oxygen Delivery Me thod OxyMask Oxygen Flow Rate 5 07/24/22 16:45 07/24/22 16:47 07/24/22 17:01 Temperature 98.2 F Pulse Rate 129 H 127 H 132 H Pulse Rate [Right Pulse Oximeter] Respiratory Rate Blood Pressure 143/89 H 122/56 L Blood Pressure [Ri ght Upper Arm] Pulse Oximetry 96 98 98 Oxygen Delivery Me thod OxyMask OxyMask OxyMask Oxygen Flow Rate 5 5 5 07/24/22 17:01 07/24/22 17:15 07/24/22 17:17 Temperature Pulse Rate 138 H 116 H 134 H Pulse Rate [Right Pulse Oximeter] Respiratory Rate Blood Pressure 128/96 H Blood Pressure [Ri ght Upper Arm] Pulse Oximetry 98 100 100 Oxygen Delivery Me thod OxyMask OxyMask OxyMask Oxygen Flow Rate 5 5 5 07/24/22 17:30 07/24/22 17:33 07/24/22 17:45 Temperature 98 F Pulse Rate 115 H 107 H 132 H Pulse Rate [Right Pulse Oximeter] Respiratory Rate Blood Pressure 175/100 H Blood Pressure [Ri ght Upper Arm] Pulse Oximetry 100 100 96 Oxygen Delivery Me thod OxyMask OxyMask OxyMask Oxygen Flow Rate 5 5 5 07/24/22 17:48 07/24/22 18:01 07/24/22 18:01 Temperature Pulse Rate 129 H 109 H 102 H Pulse Rate [Right Pulse Oximeter] Respiratory Rate Blood Pressure 168/88 H 164/101 H Blood Pressure [Ri ght Upper Arm] Pulse Oximetry 100 99 97 Oxygen Delivery Me thod OxyMask OxyMask OxyMask Oxygen Flow Rate 5 5 5 07/24/22 18:11 07/24/22 18:15 07/24/22 18:17 Temperature Pulse Rate 107 H 94 95 Pulse Rate [Right Pulse Oximeter] Respiratory Rate Blood Pressure 120/78 130/79 Blood Pressure [Ri ght Upper Arm] Pulse Oximetry 92 97 96 Oxygen Delivery Me thod OxyMask OxyMask OxyMask Oxygen Flow Rate 5 3 3 Course Vital Signs Vital signs: Initial Vital Signs Temperature 98.2 F 07/24/22 13:29 Temperature Source Temporal Artery Scan 07/24/22 13:29 Pulse Rate 96 07/24/22 13:29 Respiratory Rate 22 07/24/22 13:29 Blood Pressure 173/97 H 07/24/22 13:29 Blood Pressure Mean 122 H 07/24/22 13:29 Blood Pressure Position Sitting 07/24/22 13:29 Pulse Oximetry 87 L 07/24/22 13:29 Oxygen Delivery Method Room Air 07/24/22 13:29 Vital Signs Temperature 98.2 F 07/24/22 13:29 Pulse Rate 96 07/24/22 13:29 Respiratory Rate 22 07/24/22 13:29 Blood Pressure 173/97 H 07/24/22 13:29 Pulse Oximetry 87 L 07/24/22 13:29 Oxygen Delivery Method Room Air 07/24/22 13:29 Temperature 98 F 07/24/22 17:30 Pulse Rate 95 07/24/22 18:17 Respiratory Rate 40 H 07/24/22 14:30 Blood Pressure 130/79 07/24/22 18:17 Pulse Oximetry 96 07/24/22 18:17 Oxygen Delivery Method OxyMask 07/24/22 18:17 Oxygen Flow Rate 3 07/24/22 18:17 Medical Decision Making MDM Narrative Medical decision making narrative: Patient is 76 white male with COPD, end-stage renal disease failure on dialysis and with a cold and cough over the last few days. He has also had history of congestive heart failure. The patient is scheduled to dialyze tomorrow, he does not feel like he is significant volume overloaded but he does feel like he has got congestion in his lungs. Will check an x-ray lab studies disposition pending findings above, will check a COVID influenza/RSV test. Will start antibiotics and steroids. Disposition pending findings above thanks Addendum: Patient's chest x-ray shows what appears to be pulmonary edema as well as possible right lower lobe pneumonia. He has been given antibiotics and nebulizer treatment. Also IV steroid. Patient also has a markedly elevated BNP at 25,000 and I think he has an element of congestive failure as per the radiologist over read of his x-ray. I think he will need to be in the hospital for diuresis likely dialysis, antibiotics and steroid treatment nebulizers as needed. I would we do not have a bed availability for dialysis here. I think also have him see pulmonary and cardiology be appropriate. Will see if is [facility] can help us with his case. Transfer sheets completed. He is negative for COVID/influenza assess RSV. Addendum 5:[address] [facility]. Discussion of the patient's care was gone over. Family was in agreement. Transfer sheets signed. Lab Data Labs: Lab Results 07/24/22 07/24/22 Range/Units 14:02 14:05 WBC 8.93 (4.50-11.00) K/uL RBC 3.62 L (4.30-5.90) m/uL Hgb 12.3 L (13.5-17.5) gm/dL Hct 38.1 (37.0-53.0) % MCV 105 H (80-100) fL MCH 34 (26-34) pg MCHC 32 (32-36) gm/dL RDW Coeff of Sridevi 15.8 H (11.5-15.5) % Plt Count 104 L (140-440) K/uL Neut % (Auto) 85.6 H (42.0-72.0) % Lymph % (Auto) 7.5 L (20-44) % [place] % (Auto) 5.8 (0.0-11.0) % Eos % (Auto) 0.9 (0.0-7.0) % Baso % (Auto) 0.1 (0.0-3.0) % Neut # (Auto) 7.60 H (1.7-7.0) K/uL Lymph # (Auto) 0.70 L (0.90-2.90) K/uL [place] # (Auto) 0.50 (0.00-0.90) K/UL Eos # (Auto) 0.08 (0.00-0.50) K/uL Baso # (Auto) 0.01 (0.00-0.30) K/uL VBG pH 7.315 L (7.32-7.43) VBG pCO2 56 H (40-50) mmHG VBG pO2 24.4 L (25-47) mmHG VBG HCO3 28 (21-28) mmol/L Sodium 138 (135-149) mmol/L Potassium 4.7 (3.6-5.1) mmol/L Chloride 94 L (96-114) mmol/L Carbon Dioxide 26 (20-32) mmol/L BUN 45 H (7-30) mg/dL Creatinine 7.2 H (0.5-1.5) mg/dL Estimated Creat Clear 8.58 Estimated GFR 7 ml/min Glucose 123 H (60-115) mg/dL Calcium 9.2 (8.4-10.6) mg/dL Total Bilirubin 0.6 (0.1-1.5) mg/dL Direct Bilirubin 0.6 H (0.0-0.5) mg/dL AST 32 (12-35) U/L ALT 25 (4-50) U/L Alkaline Phosphatase 164 H (40-150) U/L Troponin I 0.07 H* (0.01-0.04) ng/mL C-Reactive Protein 1.3 H (0.5-1.0) mg/dL NT-Pro-B Natriuret Pep 43925 pg/mL Total Protein 8.3 (6.0-8.3) g/dL Albumin 4.7 (3.3-5.0) g/dL SARS-CoV-2 (PCR) Negative SARS-CoV-2 (Negative) Influenza Type A (PCR) Negative PCR FLU A (Negative) Influenza Type B (PCR) Negative PCR FLU B (Negative) RSV (PCR) Negative PCR RSV (Negative) Discharge Plan Discharge Clinical Impression: Heart failure, Community acquired pneumonia, COPD (chronic obstructive pulmonary disease) Patient Disposition: Xfer Other Condition: Improved Additional Instructions: Patient has been accepted by Dr. blair at [facility]. Transfer via ALS ambulance. Prescriptions: No Action ipratropium-albuterol 0.5 mg-3 mg(2.5 mg base)/3 mL solution for nebulization INHALATION Patient Comments: USE 3 ML VIA NEBULIZER EVERY 6 HOURS NEEDED FOR SHORTNESS OF BREATH allopurinol 100 mg tablet 100 mg PO DAILY pantoprazole 40 mg tablet,delayed release (DR/EC) 40 mg PO DAILY metoprolol succinate 25 mg tablet extended release 24 hr 12.5 mg PO DAILY fluticasone propion-salmeterol [Advair HFA] 115-21 mcg/actuation HFA aerosol inhaler 2 inh INHALATION Q12H sevelamer carbonate 800 mg tablet 800 mg PO TID Patient Comments: TAKE 1 TABLET BY MOUTH THREE TIMES A DAY WITH MEALS atorvastatin 40 mg tablet 40 mg PO DAILY clopidogrel 75 mg tablet 75 mg PO DAILY midodrine 10 mg tablet 10 mg PO PRN Stand Alone Forms: [employer] [facility] Info Instructions
--- OUTSIDE RECORDS SUMMARY | 2022-07-24 13:50 | XMS_ITS | Continuity of Care Document ---
Author Name Unknown Organization [facility] Address [address] [address] [place] [address] Phone Care Team Providers Care Jack Frame Tender Name Role Phone Joce Zamudio MD Unavailabl e Procedures Procedure Date Init Hosp-da E&m Mod Severity 2 Ugi Endo; W/bx /mx Subsqt Hosp-da E&m Minr Compl 9 Init Inpt Cons New/est Mod-hi 9 Sm Intest Endo Not Ileum; Dx ( 09 Small Intestinal Imaging Subsqt Hosp-da E&m Minr Compl 9 Subsqt Hosp-da E&m Minr Compl 9 Init Inpt Cons New/est Mod-hi 9 Colonoscopy Flex; Dx (sep Pro) 09 Ugi Endo; W/bx /mx Advance Directives Directive Yes / No Effective Date File Name No Information Encounters Encounter Description Practice Location Reason(s) For Visit Diagnoses Date Provider Providers Copied on Encounter [facility], [address] [address], [place], [id number], [place] tel:[phone] [facility] No Information 2 Lizz Hobson. [address] [facility], [facility] [address], [place], [place], [id number], [place]. tel:[phone] Init Hosp-da E&m Mod Severity [facility], [address] [address], [place], [id number], [place] tel:[phone] [facility] No Information 2 Lizz Hobson. [address] [facility], [address], [place], [place], [id number], [place]. tel:[phone] Referring Provider: Layne JOSHI R, [address] [facility], [place], [address]. tel:[phone] Subsqt Hosp-da E&m Minr Compl [facility], [address] [address], [place], [id number], [place] tel:[phone] [facility] No Information 9 Desean Gonzalez. [address] [facility], [address], [place], [place], [id number], [place]. tel:[phone] Referring Provider: Dallin Gomez MD R, [address], [facility] [place], [address]. tel:[phone] Init Inpt Cons New/est Mod-hi [facility], [address] [address], [place], [id number], [place] tel:[phone] [facility] No Information 9 No Information Referring Provider: Dallin Gomez MD R, [address], [place] [address]. tel:[phone] [facility], [address] [address], [place], [id number], [place] tel:[phone] [facility] No Information 9 Nilton Cerda. [address] [facility], [address], [place], [place], [id number], [place]. tel:[phone] Referring Provider: Bryan Castrejon MD P, [address] [facility] [address], [place], [address] . tel:[phone] Subsqt Hosp-da E&m Minr Compl [facility], [address] [address], [place], [id number], [place] tel:[phone] [facility] No Information Quentin Casianoy. [address] [facility], [facility] [address], [place], [place], [id number], . tel:[phone] Referring Provider: Dallin Alvares, [address] [place] [address], [place], [address]. tel:[phone] Init Inpt Cons New/est Mod-hi [facility], [address] [address], [place], [place], [id number], tel:[phone] [facility] No Information Cash Adams. [address] [facility], [facility] [address], [place], [place], [id number], [place]. tel:[phone] Referring Provider: Dallin Alvares, [address] [address], [place], [address]. tel:[phone] Family History Family Member Type Diagnosis Age At Onset No Information Payers Payer name Insurance type Covered alliance party ID Mohit eldridge(s) Blue Cross Medicare Advantage [id number] Social History Type Description Quantity Date Captured Comments Sex Male Smoking Status No Information Chief Complaint And Reason For Visit No Information Reason For Referral Reason For Referral No Information Plan Of Treatment Date Type Action Status No Information History Of Present Illness Encounter Date Complaint History Of Prese nt Illness No Information Functional Status Date Functional Assessmen t No Information Instructions Date Instruction Additional Infor mation No Information Assessments Type Assessment Date No Information Patient Care Teams Name Effective Dates (start - stop) Status Members No Information
--- NOTE | 2022-07-24 14:06 | ED.NURSE ---
Radiology in with patient
[2022-07-24 14:15] LABS: HCO3 VBG 28 mmol/L (21-28); PCO2 VBG 56 mmHG (40-50); PO2 VBG 24.4 mmHG (25-47); pH VBG 7.315 (7.32-7.43)
[2022-07-24 14:16] LABS: Basophils Absolute Auto 0.01 K/uL (0.00-0.30); Basophils Percent Auto 0.1 % (0.0-3.0); Eosinophils Absolute Auto 0.08 K/uL (0.00-0.50); Eosinophils Percent Auto 0.9 % (0.0-7.0); Hematocrit 38.1 % (37.0-53.0); Hemoglobin* 12.3 gm/dL (13.5-17.5); Immature Granulocytes Abs Auto 0.01 K/uL (0.00-0.30); Immature Granulocytes Pct Auto 0.1 %; Lymphocytes Percent Auto 7.5 % (20-44); Mean Corpuscular HGB Conc 32 gm/dL (32-36); Mean Corpuscular Hemoglobin 34 pg (26-34); Mean Corpuscular Volume 105 fL (80-100); Monocytes Percent Auto 5.8 % (0.0-11.0); Neutrophils Percent Auto 85.6 % (42.0-72.0); Platelet Count* 104 K/uL (140-440); RDW Coefficient of Variation % 15.8 % (11.5-15.5); Red Blood Count 3.62 m/uL (4.30-5.90); White Blood Count* 8.93 K/uL (4.50-11.00)
[2022-07-24 14:22] LABS: Slide Review Reflex No
[2022-07-24] MEDS: cefTRIAXone 500 MG in 0.9 % SODIUM CHLORIDE Mini-bag 100 ML 200 MG IVPB (14:32)
[2022-07-24] MEDS: METHYLPREDNISOLONE SOD SUCC 62.5 MG/ML (125) 125 MG IVP (14:33)
[2022-07-24] MEDS: AZITHROMYCIN 250 MG TABLET 500 MG PO (14:33)
[2022-07-24] MEDS: IPRAT-ALBUT 0.5-2.5 MG/3 ML NEB 1 NEB IH (14:33)
[2022-07-24 14:36] LABS: Albumin* 4.7 g/dL (3.3-5.0); Chloride* 94 mmol/L (96-114)
[2022-07-24 14:37] LABS: Potassium* 4.7 mmol/L (3.6-5.1); Sodium* 138 mmol/L (135-149)
[2022-07-24 14:39] LABS: Aspartate Amino Transferase* 32 U/L (12-35); Bilirubin Direct* 0.6 mg/dL (0.0-0.5); Bilirubin Total* 0.6 mg/dL (0.1-1.5); Carbon Dioxide* 26 mmol/L (20-32); Creatinine* 7.2 mg/dL (0.5-1.5); Est. Creatinine Clearance* 8.58; Estimated Glomerular Filt Rate 7 ml/min
[2022-07-24 14:40] LABS: Alanine Aminotransferase* 25 U/L (4-50); Alkaline Phosphatase* 164 U/L (40-150); Blood Urea Nitrogen* 45 mg/dL (7-30); Calcium* 9.2 mg/dL (8.4-10.6); Glucose* 123 mg/dL (60-115); Total Protein* 8.3 g/dL (6.0-8.3)
[2022-07-24 14:42] LABS: C Reactive Protein* 1.3 mg/dL (0.5-1.0)
[2022-07-24 14:55] LABS: PCR FLU A Negative PCR FLU A (Negative); PCR FLU B Negative PCR FLU B (Negative); PCR RSV Negative PCR RSV (Negative)
[2022-07-24 14:58] LABS: SARS PCR* Negative SARS-CoV-2 (Negative)
[2022-07-24 14:58] LABS: Troponin I* 0.07 ng/mL (0.01-0.04)
[2022-07-24 15:30] LABS: NT Pro B Type NatriureticPept* 25500 pg/mL
--- NOTE | 2022-07-24 17:00 | ED.NURSE ---
Patient noted to have scant amount of light pink tinge to sputum. Will continue to monitor.
--- NOTE | 2022-07-24 17:18 | ED.NURSE ---
Patient sitting on side of cot, daughter at bedside. This is a more comfortable position for him. RR 26, SpO2 97%. Dried blood noted to socks bilaterally with patient sitting. 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 There is redness, slight warmth to right lower leg. Dr. Hernandez notified.
--- NOTE | 2022-07-24 17:50 | ED.NURSE ---
Patient had utilized some red cough drops that he had, difficult to tell now if sputum has blood or not. Patient will hold off on cough drop use so we can assess.
--- NOTE | 2022-07-24 18:05 | ED.NURSE ---
[facility] ([phone]). Patient accepted to [facility] 4th floor, EMS to present to the ED. Will anticipate patient's arrival in the next 2-3 hours.
== END 2022-07-24 18:20 | disposition other institution (70) ==
PROVIDERS: Emergency Provider Family Medicine; PCP Family Medicine
DX: I50.9 Heart failure, unspecified (principal); J18.9 Pneumonia, unspecified organism; J44.9 Chronic obstructive pulmonary disease, unspecified
CPT/HCPCS: 36415; 71045; 80048; 80076; 82803; 83880; 84484; 85025; 86140; 87631; 93005; 94640; 96365; 96375; 99285; A9270; J0696; J2930

== ENCOUNTER 2022-07-24 18:29 | Outpatient (CLI) | payer MEDICARE, SELFPAY | END 2022-07-24 18:30 | disposition home or self-care (01) | LOC: AMB 07-27 12:51 | PROVIDERS: PCP Family Medicine; Visit Provider Family Medicine | DX: J44.1 Chronic obstructive pulmonary disease with (acute) exacerbation (principal) | CPT/HCPCS: A0425; A0428 ==

== ENCOUNTER 2023-02-22 18:06 | Outpatient (CLI) | payer MEDICARE, SELFPAY ==
--- OUTSIDE RECORDS SUMMARY | 2023-02-22 18:09 | XMS_ITS | Continuity of Care Document ---
Author Name Unknown Organization [facility] Address [address] [address] [place] [address] Phone Care Team Providers Care Plate And Weld Inspector Name Role Phone Joce Zamudio MD Unavailabl [...] Diagnoses Date Provider Providers Copied on Encounter [facility], [address] [address], [place], [id number], [place] tel:[phone] [facility] No Information 2 Lizz Hobson. [address] [facility], [facility] [address], [place], [place], [id number], [place]. tel:[phone] Init Hosp-da E&m Mod Severity [facility], [address] [address], [place], [id number], [place] tel:[phone] [facility] No Information 2 Lizz Hobson. [address] [facility], [place], [place], [id number], [place]. tel:[phone] Referring Provider: Layne JOSHI R, [address] [facility], [place], [address]. tel:[phone] Subsqt Hosp-da E&m Minr Compl [facility], [address] [address], [place], [id number], [place] tel:[phone] [facility] No Information 9 Desean Gonzalez. [address] [facility], [place], [place], [id number], [place]. tel:[phone] Referring Provider: Dallin Gomez MD R, [address], [place], [address]. tel:[phone] Init Inpt Cons New/est Mod-hi [facility], [address] [address], [place], [id number], [place] tel:[phone] [facility] No Information 9 No Information Referring Provider: Dallin Gomez MD R, [address], [place], [address]. tel:[phone] [facility], [address] [address], [place], [id number], [place] tel:[phone] [facility] No Information 9 Nilton Cerda. [address] [facility], [place], [place], [id number], [place]. tel:[phone] Referring Provider: Bryan Castrejon MD P, [address] [facility] [address], [place], [address] . tel:[phone] Subsqt Hosp-da E&m Minr Compl [facility], [address] [address], [place], [id number], [place] tel:[phone] [facility] No Information Quentin Casianoy. [address] [facility], [facility] [address], [place], [place], [id number], . tel:[phone] Referring Provider: Dallin Alvares, [address] [place] [address], [place], [address]. tel:[phone] Init Inpt Cons New/est Mod-hi [facility], [address] [address], [place], [place], [id number], tel:[phone] [facility] No Information Cash Adams. [address] [facility], [facility] [address], [place], [place], [id number], [place]. tel:[phone] Referring Provider: Dallin Alvares, [address] [address], [place], [address]. tel:[phone] Family History Family Member Type Diagnosis Age At Onset No Information Payers Payer name Insurance type Covered democrat ID Mohit eldridge(s) [employer] Medicare Advantage [id number] Social History Type Description Quantity Date Captured Comments Sex Male Smoking Status No Information Chief Complaint And Reason For Visit No Information Reason For Referral Reason For Referral No Information History Of Present Illness Encounter Date Complaint History Of Prese nt Illness No Information Functional Status Date Functional Assessmen t No Information Instructions Date Instruction Additional Infor mation No Information Assessments Type Assessment Date No Information Patient Care Teams Name Effective Dates (start - stop) Status Members No Information
== END 2023-02-22 18:07 | disposition home or self-care (01) ==
LOC: NFLDUCREF 18:07
PROVIDERS: PCP Family Medicine; Visit Provider Nurse Practitioner Family
DX: R60.0 Localized edema (principal)
CPT/HCPCS: 85379

== ENCOUNTER 2023-02-28 12:18 | Outpatient (CLI) | payer MEDICARE, SELFPAY ==
--- NOTE | 2023-02-28 13:00 | CRLHL7_ITS ---
For Patients: As a result of the Century Cures Act, medical imaging exams and procedure reports are released immediately into your electronic medical record. You may view this report before your referring provider. If you have questions, please contact your health care provider. INDICATION: Soft tissue disorder COMPARISON: None. TECHNIQUE: Lopez-scale, color, and duplex Doppler imaging of the examined veins. Compression and augmentation attempted where anatomically and clinically feasible. FINDINGS: Laterality: Left Examined veins: Common femoral, femoral, popliteal, peroneal, posterior tibial Greater saphenous The examined veins are patent with normal color Doppler flow and a normal venous waveform on duplex Doppler. Where possible, there is normal compression and normal augmentation of flow. The right common femoral vein was sampled for comparison and is normal. No waveform abnormalities to suggest central occlusion. IMPRESSION: No deep vein thrombosis in the left leg. Dictated by Radha Car MD @ 02/28/2023 2:13:25 PM (Electronically Signed)
== END 2023-02-28 12:19 | disposition home or self-care (01) ==
LOC: US 12:19
PROVIDERS: PCP Family Medicine; Visit Provider Nurse Practitioner Family
DX: M79.89 Other specified soft tissue disorders (principal); R79.89 Other specified abnormal findings of blood chemistry
CPT/HCPCS: 93971

== ENCOUNTER 2023-06-16 13:30 | Outpatient (CLI) | payer MEDICARE, SELFPAY | END 2023-06-16 13:31 | disposition home or self-care (01) | LOC: WOUND 13:30 | PROVIDERS: PCP Family Medicine; Visit Provider Family Medicine | DX: E11.621 Type 2 diabetes mellitus with foot ulcer (principal); E11.40 Type 2 diabetes mellitus with diabetic neuropathy, unspecified; L97.512 Non-pressure chronic ulcer of other part of right foot with fat layer exposed; I87.313 Chronic venous hypertension (idiopathic) with ulcer of bilateral lower extremity; L97.829 Non-pressure chronic ulcer of other part of left lower leg with unspecified severity; L97.819 Non-pressure chronic ulcer of other part of right lower leg with unspecified severity | CPT/HCPCS: 11042; G0463 ==

== ENCOUNTER 2023-06-20 12:34 | Outpatient (CLI) | payer MEDICARE, SELFPAY | END 2023-06-20 12:35 | disposition home or self-care (01) | LOC: WOUND 12:34 | PROVIDERS: PCP Family Medicine; Visit Provider Nurse Practitioner Family | DX: E11.621 Type 2 diabetes mellitus with foot ulcer (principal); E11.40 Type 2 diabetes mellitus with diabetic neuropathy, unspecified; L97.512 Non-pressure chronic ulcer of other part of right foot with fat layer exposed | CPT/HCPCS: 11042 ==

== ENCOUNTER 2023-07-04 14:34 | Outpatient (CLI) | payer MEDICARE, SELFPAY ==
--- OUTSIDE RECORDS SUMMARY | 2023-07-04 14:37 | XMS_ITS ---
Author Name Unknown Organization [facility] Address [address] [place] [address] Care Team Providers Care Commissary Helper Name Role Phone Unavailable Unavailable Unavailable Surgery Details Not on file Complications Check Surgery Details section. Procedure Estimated Blood Loss Check Surgery Details section. Procedure Findings Check Surgery Details section. Procedure Specimens Taken Check Surgery Details section.
--- OUTSIDE RECORDS SUMMARY | 2023-07-04 14:37 | XMS_ITS | Clinical Summary ---
Author Name Unknown Organization [facility] Address [place], [place] [address] Care Team Providers Care Agricultural Chemist Name Role Phone Liban Leos MD Primary Care Provider Tanya Paz PharmD Unavailable + [phone] Allergies Active Allergy Reactions Criticality Noted Date Comments Blood-Group Specific Substance Other - Describe In Comment Field 01/15/2019 Patient has a Suggestive Warm Auto antibody. Blood products may be delayed. Draw patient 24 hours prior to transfusion. Draw one red top and two purple top tubes for all type and screen orders. Homeopathic Products Runny Nose 08/13/2008 Lisinopril Cough 06/07/2006 Medications Medication Sig Dispensed Refills Start Date End Date Status lidocaine-prilocai ne (EMLA) 2.5-2.5 % cream APPLY SMALL AMOUNT TO ACCESS SITE (AVF) 1 TO 2 HOURS BEFORE DIALYSIS. COVER WITH OCCLUSIVE DRESSING (SARAN WRAP) 03/30/2020 Active albuterol HFA (PRO-AIR; VENTOLIN; PROVENTIL) 90 mcg/actuation inhaler Inhale 2 Puffs by mouth every 4 hours if needed for Shortness Of Breath. Active sevelamer carbonate (RENVELA) 800 mg tab tabletIndications: ESRD (end stage renal disease) on dialysis (HC) Take one tab twice a day with meals 0 01/13/2022 Active aspirin chewable 81 mg chewable tabletIndications: S/P AVR (aortic valve replacement) Take 1 Tablet (81 mg) by mouth or nasogastric tube once daily. 0 01/14/2022 Active midodrine 10 mg tabletIndications: ESRD (end stage renal disease) on dialysis (HC) Take 1 Tablet (10 mg) by mouth before dialysis. 0 01/13/2022 Active sodium chloride-aloe vera (AYR) nasal gel Apply to affected nostril(s) two times daily. 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 Dispense item covered by pt ins. E11.9 NIDDM type II - Test 2 time/day 200 Each 3 09/07/2022 Active amoxicillin (AMOXIL) 500 mg capsuleIndications :Need for SBE (subacute bacterial endocarditis) prophylaxis 4 capsules oral one hour before procedure. 4 Capsule 3 10/21/2022 Active fluticasone (50 mcg per actuation) nasal solution (FLONASE)Indicatio ns:Allergic rhinitis due to pollen, unspecified seasonality Inhale 2 Sprays to both nostrils once daily. 48 mL 3 10/28/2022 Active atorvastatin (LIPITOR) 40 mg tabletIndications: S/P TAVR (transcatheter aortic valve replacement) Take 1 Tablet (40 mg) by mouth once daily. 90 Tablet 3 12/20/2022 Active clopidogreL (PLAVIX) 75 mg tabletIndications: S/P AVR (aortic valve replacement) Take 1 Tablet (75 mg) by mouth every morning. 90 Tablet 3 12/20/2022 Active ammonium lactate 12% (LACHYDRIN) 12 % creamIndications:X erosis of skin Apply topically to affected area(s) two times daily. 140 g 3 12/20/2022 Active sodium chloride (OCEAN) 0.65 % nasal solutionIndication s:Post-nasal drip Inhale [address] affected nostril(s) every hour if needed for Nasal Congestion. 45 mL 03/16/2023 Active mometasone-formote rol (DULERA) 200-5 mcg/actuation inhalerIndications :Moderate persistent asthma, unspecified whether complicated Inhale 2 Puffs by mouth two times daily. 13 g 12 04/15/2023 Active albuterol-ipratrop ium (DUONEB) (2.5-0.5 mg) in 3 mL NEBULIZATION solutionIndication s:Bronchospasm Inhale 3 mL via a nebulizer every 6 hours if needed for Shortness of Breath 1st choice. 180 mL 3 04/21/2023 Active b complex-vitamin c-folic acid 1 mg (Triphrocaps) 1 mg capsuleIndications :Stage 4 chronic kidney disease (HC) Take 1 capsule by mouth daily. 90 Capsule 3 05/21/2023 Active honey (MediHoney, honey,) 100 % psteIndications:Di abetic ulcer of right midfoot associated with type 2 diabetes mellitus, with muscle involvement without evidence of necrosis (HC) Apply topically to affected area(s). Daily or as needed with dressing changes. 44 mL 3 06/09/2023 Active amoxicillin-clavul anate, 500 mg-125 mg, (Augmentin) 500-125 mg tabletIndications: Diabetic ulcer of right midfoot associated with type 2 diabetes mellitus, with muscle involvement without evidence of necrosis (HC) One tab oral daily. Take after dialysis. 7 Tablet 06/09/2023 Active allopurinoL (ZYLOPRIM) 100 mg tabletIndications: Essential hypertension Take 1 Tablet (100 mg) by mouth once daily. 90 Tablet 3 06/20/2023 Active metoprolol succinate (TOPROL XL) 25 mg Sustained-Release tabletIndications: Essential hypertension Take 0.5 Tablets (12.5 mg) by mouth once daily. 45 Tablet 3 06/20/2023 Active pantoprazole (PROTONIX) 40 mg delayed-release tabletIndications: Chronic GERD Take 1 Tablet (40 mg) by mouth once daily before a meal. 90 Tablet 3 06/20/2023 Active fluticasone propion-salmeteroL (Advair HFA) 115-21 mcg/actuation inhalerIndications :Bronchospasm Inhale 2 Puffs by mouth two times daily. 36 g 3 12/20/2022 4 Discontinue d(*Availabi lity/Formul lele change/Cost of medication) cephalexin (KEFLEX) 500 mg capsuleIndications :Sebaceous cyst Take 1 capsule daily for 5 days. On Dialysis days, take after dialysis. 5 Capsule 01/31/2023 4 Discontinue d(*Med complete/Re gimen complete/Le nettie of care change) metoprolol succinate (TOPROL XL) 25 mg Sustained-Release tabletIndications: Essential hypertension Take 1/2 tablet by mouth once daily. 15 Tablet 05/21/2023 4 Discontinue d(Reorder (E-cancel not sent)) allopurinoL (ZYLOPRIM) 100 mg tabletIndications: Essential hypertension Take 1 tablet by mouth once daily. 30 Tablet 05/21/2023 4 Discontinue d(Reorder (E-cancel not sent)) pantoprazole (PROTONIX) 40 mg delayed-release tabletIndications: Chronic GERD Take 1 tablet by mouth once daily before a meal. 30 Tablet 05/21/2023 4 Discontinue d(Reorder (E-cancel not sent)) Active Problems Problem Noted Date Diagnosed Date Diabetic ulcer of right midf oot associated with type 2 diabetes mellitus, with muscle involvement without evidence of necrosis 06/12/2023 Reactive airway disease 12/20/2022 Overview: PFT 05/2021; mod reduction FVC and FEV1 w nl FEV1/FVC ratio however near sig improvement of FEV1 after albuterol. ESRD (end stage renal disease) on dialysis 12/30 Depression, recurrent 10/15/2021 Primary osteoarthritis of knees, bilateral 06/09 Overview: May 2021: bilateral cortisone knee injections by Dr. Lara. 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 No Coumadin needed for tissue AVR, recommend Aspirin 325mg daily X1 month, then 81 mg daily indefinitely. Coronary atherosclerosis of unspecified type of vessel, holy cross or graft 04/04/2007 Overview: Angiogram/PCI 04/04/07: LAD: 70% stenosis mid, 90% distal. LCx: mild luminal irregularities. RCA: dominant, mild luminal irregularities. EF 60%. LV Pressure = 168/24. RA=12; RV=40/15; PW=16; PA=32/17, mean 22. PCI: TAXUS Stent to Mid LAD, PTCA/BMS to Distal LAD. Unspecified essential hypertension 06/07/2006 Other and unspecified hyperlipidemia 06/07/2006 ESOPHAGEAL REFLUX/BARRETTS ESOPHAGUS 06/07/2006 NEUROPATHY IN OTHER DISEASE/DIABETES 06/07/2006 Type 2 diabetes mellitus wit h circulatory disorder, without long-term current use of insulin 02/18/2002 Osteoarthrosis, unspecified whether generalized or localized, unspecified site Heart failure with preserved ejection fraction Overview: ef 67% 02/2019 Resolved Problems Problem Noted Date Diagnosed Date Resolved Date Pressure injury of right ankle, stage 3 06/14/2022 06/12/2023 RSV (respiratory syncytial virus infection) 12/30/2021 02/15/2022 Pneumonia due to infectious organism 12/27/2021 02/15/2022 COPD exacerbation 12/15/2020 05/18/2021 Acute renal failure superimp osed on stage 5 chronic kidney disease, not on chronic dialysis 04/25/2019 07/17/2020 Hypoglycemia 04/25/2019 07/17/2020 Hyperkalemia 04/17/2019 07/17/2020 Skin ulcer of toe, limited t o breakdown of skin 03/28/2019 07/17/2020 Encounter for fitting and ad justment of extracorporeal dialysis catheter 03/28/2019 021 PMR (polymyalgia rheumatica) 03/28/2019 07/17/2020 Venous stasis ulcer of right ankle limited to breakdown of skin with varicose veins 03/28/2019 GAVI (acute kidney injury) 03/05/2019 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 Tachycardia 10/06/2008 07/17/2020 Dyspnea 10/06/2008 02/15/2022 Atrial flutter 10/06/2008 12/15/2020 Overview: - New onset 09/25, s/p DCCV 10/07/08. Acute renal insufficiency 10/06/2008 Hyponatremia 09/16/2008 04/17/2019 Postoperative Sternal Wound Infection 09/16/2008 07/17/2020 Morbid obesity 09/03/2008 05/18/2021 Iron deficiency anemia, unspecified 08/13/2008 07/17/2020 Overview: Admitted to [facility] 08/12/08 with Hgb 5.6, ferritin 5. Negative colonoscopy. 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 Reportedly negative outpatient capsule study. Chest pain, unspecified 06/20 AORTIC VALVE DISORDER: Moderate to severe 07/17/2020 Overview: -Echo 03/29/07: Mild concentric LVH with normal wall motion. EF 55-60%. Marked KIERAN. Mod . CLAUS 1.3 cm sq. Mean gradient 24 mmHg. Mild SC, TI. Mild pulmonary hypertension. RVSP 39 mmHg +RAP. -S/P AVR 09/03/2008 Acute CHF 07/26/2010 Overview: -Mar 2007 admission to [facility] CKD (chronic kidney disease) stage 5, GFR less than 15 ml/min 02/15/2022 End stage renal disease 06/20 Mitral stenosis 07/17/2020 Overview: Moderate to severe by echo 02/2019 Encounters Date Type Department Care Team Description 06/20/2023 10:30 AM CDT Ancillary Procedure [facility] [address] [facility] [address] 06/20/2023 9:15 AM CDT Office Visit [facility] [address] [place] [address] Liban Leos MD Medicare ANNUAL (subsequent) Visit (77 year old) 06/20/2023 Travel 06/12/2023 1:40 PM CDT Office Visit [facility] [address] [place] [address] Liban Leos MD Follow Up (Wound on bottom of right foot) 06/12/2023 Travel 06/09/2023 2:30 PM CDT Office Visit [facility] [address] [place] [address] Liban Leos MD Foot Problem (Wound on bottom of right foot, 3 days) 06/09/2023 Travel 06/09/2023 Medical Messaging [facility] [address] [place] [address] Liban Leos MD Wound clinic referral 05/21/2023 Refill [facility] [address] [place] [address] Liban Leos MD Refill Request (Metoprolol Succinate, Allopurinol, Pantoprazole, ) from Last 3 Months Immunizations Name Administration Dates Next Due AMB INFLUENZA IIV3 (AGE 65+ YRS) PF (Flu Clinic Only) 12/28/2018 COVID-19 Vaccine Spikevax (M oderna 50mcg/0.5mL) 12YO+ [id number] Formula PF 06/20/2023,01/07/2023 COVID-19 vaccine (Moderna 100mcg/0.5mL) PF, MDV 05/11/2020,04/17/2020 COVID-19 vaccine (Pfizer-Bio NTech 30mcg/0.3mL) 12YO+ THOMAS-SUCROSE PF, MDV 10/15/2021 Influenza, High-dose Inactivated 12/09/2015,02/18,12/16/2013 Influenza, IIV3 (Age 6-35 mos) 02/01/2011 Influenza, IIV3 (Age >=3 years) 04/19/19 14,04/03/2012,02/01/2011,12/21,12/30/2008 Influenza, IIV4 12/04/2019 Influenza, Inactivated AIIV4 (Age 65+ Years) Preserv Free 12/20/2022,12/08/2021 Influenza, Inactivated IIV3 (Age 65+ Years) Preserv Free 01/04/2018,01/11/2017 Pneumococcal Conj 20-valent (Prevnar 20) 06/14/2022 Pneumococcal Poly,23-Valent (Pneumovax) 12/09/2015,10/07/2008 Pneumococcal conj 13-Valent (Prevnar 13) 08/21/2014 RSV, Bivalent Vaccine Recons tituted (Abrysvo 120MCG/0.5mL) 01/07/2023 Td (Age >=7 Years) 03/20/1997 Tdap 08/29/2008 [...] Packs/Day Years Used Date Smoking Tobacco: Never Smokeless Tobacco: Former Chew Quit: 04/02/1992 Tobacco Cessation:Counseling Given: No Comments:only chewed for 2 yrs Alcohol Use Standard Drinks/Week Comments No 0 (1 standard drink = 0.6 oz pur e alcohol) PHQ-2 Answer Date Recorded PHQ-2 TOTAL SCORE 1 06/20/2023 Social Connections Answer Date Recorded Frequency of Communication with Friends and Fami ly 0 06/20/2023 Financial Resource Strain Answer Date R ecorded Difficulty of Paying Living Expenses 2 06/20/2023 Difficulty of Paying Living Expenses 1 06/20/2023 Food Insecurity Answer Date Recorded Worried About Running Out of Food in the Last Ye ar 1 06/20/2023 Transportation Needs Answer Date Record ed Lack of Transportation (Medical) 1 06/20/2023 Housing Stability Answer Date Recorded Unable to Pay for Housing in the Last Year 1 06/20/2023 Sex and Gender Information Value Date Recorded Sex Assigned at Not on file Gender Identity Not on file Sexual Orientation Not on file Obstetrics History Last Filed Vital Signs Vital Sign Reading Time Taken Comments Blood Pressure 153/64 06/20/2023 9:20 AM CDT Pulse 48 06/20/2023 9:20 AM CDT Temperature 36.5 ??C (97.7 ??F) 01/31/2023 7:53 AM CS T Respiratory Rate 18 01/14/2022 1:12 PM CDT Oxygen Saturation 98% 06/20/2023 9:20 AM CDT Inhaled Oxygen Concentration - - Weight 98.4 kg (217 lb) 06/20/2023 9:20 AM CDT Height 171.3 cm (5' 7.44) 06/20/2023 9:20 AM CD T Body Mass Index 33.54 06/20/2023 9:20 AM CDT Plan of Treatment Upcoming Encounters Date Type Department Care Team (Late st Contact Info) Description 07/25/2023 10:30 AM CDT Office Visit [facility] [address] [place] [address] Arya Ascencio MD [address] [facility] [address] [place] [address] 11/21/2023 9:15 AM CDT Orders Only [facility] [address] [place] [address] [facility], [place] 11/21/2023 9:40 AM CDT Office Visit [facility] [address] [place] [address] Liban Leos MD [address] [place] [address] Health Maintenance Due Date Last Done Comments Zoster (shingles) series for age 50+ (1 of 2) 1996 Tetanus booster 08/29/2018 08/29/2008, 03/20/1997 Influenza for age 65+ 11/19/2023 12/20/2022 , 12/08/2021, 12/04/2019, Additional history exists BMI (ht and wt on same day) for age 18+ 06/19/2024 06/20/2023, 06/21/2022, 06/14/2022, Additional history exists Depression screening for age 12+ 06/19/2024 06/20/2023, 06/14/2022, 12/16/2020, Additional history exists Medicare Wellness for age 65+ 06/20/2024, 06/14/2022, 12/15/2020, Additional history exists Tdap Completed 08/29/2008 Hepatitis C screening for ag e 18-79 Completed 11/30/2021 Pneumococcal series for age 65+ Completed 06/14/2022, 12/09/2015, 08/21/2014, Additional history exists COVID-19 vaccine series Completed 06/20/19 24, 01/07/2023, 02/02/2022, Additional history exists Medical Devices Implanted Type Area Lining Vamper Device Identifier Shelf Expiration Date Model / Serial / Lot An Hh [id number] Implanted:Qty: 1 on 09/03/2008 at [facility] Explanted:at [facility] (Quantity not on file) Cv Implants N/A: Aortic Valve PlayEnable Jaclyn 07/13/2010 [id number] # / [id number] / Procedures Procedure Name Priority Date/Time Associated Diagnosis Comments US NECK OR HEAD SOFT TISSUE STAT 06/20/2023 10:06 AM CDT Neck mass HEMOGLOBIN A1C Routine 06/09/2023 2:20 PM CDT Type 2 diabetes mellitus with stage 5 chronic kidney disease not on chronic dialysis, without long-term current use of insulin (HC) ANTI HCV Add On 11/30/2021 12:45 PM CDT Need for hepatitis C screening test from Last 3 Months or Most Recently Relevant to Health Maintenance Results * US NECK OR HEAD SOFT TISSUE (06/20/2023 10:06 AM CDT) Anatomical Region Laterality Modality NECK Ultrasound 06/20/2023 10:2 0 AM CDT Narrative 06/20/2023 10:20 AM CDT For Patients: ??As a result of the 21st Century Cures Act, medical imaging exams and procedure reports are released immediately into your electronic medical record. ??You may view this report before your referring provider. ??If you have questions, please contact your health care provider. Indication: Neck mass Technique: Multiple transverse and longitudinal sonographic grayscale images of the left neck were obtained, supplemented with color doppler imaging. Comparison: None. Findings: In the left neck, corresponding to the area of concern, there are 2 benign- appearing nonenlarged lymph nodes with fatty ervin measurin. 0.6 x 0.5 x 0.6 centimeter 2. 0.9 x 0.4 x 0.6 centimeter Impression: Two benign appearing lymph nodes in the left neck, corresponding to the area of concern. Dictated by Alhaji Duran MD @ 06/20/2023 10:20:19 AM (Electronically Signed) Procedure Note Fadi Duran MD - 06/20/2023 For Patients: As a result of the Cures Act, medical imagingexams and procedure reports are released immediately into your electronicmedical record. You may view this report before your referring provider.If you have questions, please contact your health care provider. Indication: Neck mass Technique: Multiple transverse and longitudinal sonographic grayscale images of theleft neck were obtained, supplemented with color doppler imaging. Comparison: None. Findings: In the left neck, corresponding to the area of concern, there are 2benign- appearing nonenlarged lymph nodes with fatty ervin measurin. 0.6 x 0.5 x 0.6 centimeter 2. 0.9 x 0.4 x 0.6 centimeter Impression: Two benign appearing lymph nodes in the left neck, corresponding to thearea of concern. Dictated by Alhaji Duran MD @ 06/20/2023 10:20:19 AM (Electronically Signed) Liban Leos MD US * HEMOGLOBIN A1C MONITORING (POCT) (06/09/2023 2:20 PM CDT) HEMOGLOBIN A1C MONITORING (POCT) 6.1 <=6.4 % 06/09/2023 2:34 PM CDT [facility] Blood BLOOD SPECIMEN / Unknown Venipuncture / Unknown 06/09/2023 2:20 PM CDT 06/09/2023 2:20 PM CDT Narrative [facility] - 06/09/2023 2:34 PM CDT ? (<=6.9%) ? Indicates good control ? (7.0% to 7.9%) ? Indicates fair control ? (>=8.0%) ? Indicates poor control ?? NOTE: ??These thresholds are guidelines and ?individual targets may vary. Falsely low levels may be seen with: Recent Transfusion, Recent Significant Blood Loss, Hemolytic Diseases, or Falsely elevated levels may be seen with: Untreated Anemias, Splenectomy ? Liban Leos MD CHEMISTRY [facility] [address] [place] [address], * ANTI HCV (11/30/2021 12:45 PM CDT) HEPATITIS C ANTIBODY Non-React joe Non-React joe 12/03/2021 4:28 PM CDT [facility] Comment:Antibodies to HCV no t detected; does not exclude the possibility of exposure to HCV. Blood BLOOD SPECIMEN / Unknown Venipuncture / Unknown 11/30/2021 12:45 PM CDT 11/30/2021 1:44 PM CDT Liban Leos MD SEND OUTS [facility] [address] [place] [address], [place] from Last 3 Months or Most Recently Relevant to Health Maintenance Advance Directives * Full Code (Latest Code Status on File) Date Activated Date Inactivated Comments 12/27/2021 3:36 AM 01/14/2022 5:16 PM Question Answer Comments Code Status Discussion: Reviewed Preferences * Full Code Date Activated Date Inactivated Comments 07/21/2020 9:53 AM 07/21/2020 9:23 PM Question Answer Comments Code Status Discussion: Not Discussed * Full Code Date Activated Date Inactivated Comments 04/25/2019 10:38 PM 04/29/2019 6:50 PM * Full Code Date Activated Date Inactivated Comments 03/05/2019 4:04 PM 03/12/2019 4:23 PM Question Answer Comments Code Status Discussion: Discussed * Full Code Date Activated Date Inactivated Comments 10/06/2008 1:41 AM 10/20/2008 1:45 PM Care Teams Agricultural Chemist Relationship Specialty Start Date End Date Liban Leos MD [address] [place] [address] PCP - General Family Practice 07/17/20 Tanya Paz, PharmD [address] [address] Pharmacist Medication Management Pharmacology 05/31/22
--- OUTSIDE RECORDS SUMMARY | 2023-07-04 14:37 | XMS_ITS ---
Author Name Unknown Organization [facility] Address [address] [place] [address] Care Team Providers Care Awake Overnight Counselor Name Role Phone Elsewhere, Pcp Primary Care Provider Unavailabl e Procedures Procedure Name Priority Date/Time Associated Diagnosis Comments RENAL FUNCTION PANEL, S Routine 07/27/2022 8:02 AM CDT from Last 3 Months or Most Recently Relevant to Health Maintenance Allergies Active Allergy Reactions Criticality Noted Date Comments Lisinopril Cough 06/07/2006 Medications Medication Sig Dispensed Refills Start Date End Date Status albuterol 90 mcg/actuation inhaler Inhale 2 puffs every 4 (four) hours as needed for shortness of breath. 12/25/2021 Active albuterol 2.5 mg /3 mL nebulizer solution Inhale 3 mL 3 (three) times a day as needed for wheezing or shortness of breath. 05/01/2019 Active allopurinoL (ZYLOPRIM) 100 mg tablet Take 1 tablet by mouth daily. 05/01/2019 Active amoxicillin (AMOXIL) 500 mg capsule 4 capsules oral one hour before procedure. 07/23/2020 Active aspirin 81 mg chewable tablet Chew 81 mg daily. 01/16/2022 Ac tive atorvastatin (LIPITOR) 40 mg tablet Take 1 tablet by mouth daily. 01/16/2022 Active B complex-vitamin C-FA (Triphrocaps) 1 mg capsule Take 1 capsule by mouth daily. 12/29/2021 Active clopidogreL (Plavix) 75 mg tablet Take 1 tablet by mouth daily. 01/16/2022 Active fluticasone propion-salmeteroL (Advair HFA) 115-21 mcg/actuation inhaler Inhale 2 puffs 2 (two) times a day. 07/04/2021 Active fluticasone propionate (FLONASE) 50 mcg/actuation nasal spray Administer 2 sprays into nostril(s) 2 (two) times a day as needed for congestion. 01/13/2022 Active ipratropium-albuter oL (DUONEB) 0.5-2.5 mg/3 mL nebulizer solution Inhale 3 mL every 6 (six) hours as needed for wheezing or shortness of breath. 05/01/2019 Active lidocaine-prilocain e (EMLA) 2.5-2.5 % cream Apply 1 Application topically as needed for pain (port access). 03/30/2020 Active midodrine (PROAMATINE) 10 mg tablet Take 1 tablet by mouth 3 (three) times a week. Monday, Monday and Monday before dialysis 01/13/2022 Active pantoprazole (Protonix) 40 mg EC tablet Take 1 tablet by mouth daily. 10/12/2021 Active sevelamer carbonate (RENVELA) 800 mg tablet Take 800 mg by mouth 2 (two) times a day with meals. 09/10/2021 Active metoprolol succinate (TOPROL-XL) 25 mg 24 hr tablet Take 0.5 tablets (12.5 mg total) by mouth 2 (two) times a day. 30 tablet 07/27/2022 Active cefdinir (OMNICEF) 300 mg capsule Take 1 capsule (300 mg total) by mouth daily. 1 capsule 07/28/2022 Active Active Problems Problem Noted Date Diagnosed Date Pneumonia 07/25/2022 Chronic Obstructive Pulmonary Disease Exacerbati on 07/24/2022 Failure Renal End Stage 12/30/2021 07/26/19 23 Depression Major Recurrent 10/15/202107/25 Chronic Kidney Disease Stage 5 Glomerular Filtration Rate Less Than 15 10/08/2021 07/25/2022 Unspecified Diastolic (Congestive) Heart Failure 10/08/2021 07/25/2022 Overview: LVEF 63% Anemia Iron Deficiency 04/29/2019 3 Barretts Esophagus With Dysplasia Unspecified 07/25/2022 Osteoarthritis 04/29/2019 07/25/2022 Morbid Severe Obesity Due To Excess Calories 12/201907/25/2022 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 Mitral valve diastolic mean Doppler gradient of 14 mmHg. Atrial Fibrillation Unspecified 04/25/2019 07/25/2022 Anemia 04/17/2019 07/25/2022 Hyperparathyroidism Renal Secondary 01/21/2015 07/25/2022 Prosthesis Heart Valve 09/04/2008 3 Overview: 09/03/08 s/p AVR 25 mm [place] Magna Thermafix Pericardial Valve. No Coumadin needed for tissue AVR, recommend Aspirin 325mg daily X1 month, then 81 mg daily indefinitely. 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 Atherosclerotic Heart Diseas e Of [place] Coronary Artery Without Angina Pectoris 04/04/2007 07/25/2022 Overview: Angiogram/PCI 04/04/07 wtih Stent to Mid LAD, PTCA/BMS to Distal LAD. Hyperlipidemia 06/07/2006 07/25/2022 Hypertension Essential Primary 06/07/2006 0 07/25/2022 Diabetes Mellitus Type 2 02/18/2002 023 Social History Tobacco Use Types Packs/Day Years Used Date Smoking Tobacco: Never Passive Smoke Exposure: Current Smokeless Tobacco: Former Chew Quit: 04/02/1992 Tobacco Cessation:Counseling Given: Not Answered Nutrition Answer Date Recorded Nutrition: EVOO Fat Source Unknown 07/24 Nutrition: Servings of Fruits/Vegetables per Day Not on file 07/24/2022 Dental Answer Date Recorded Dental: Regular Dentist Unknown 07/25/19 Sex and Gender Information Value Date Recorded Sex Assigned at Not on file Gender Identity Not on file Sexual Orientation Not on file Last Filed Vital Signs Vital Sign Reading Time Taken Comments Blood Pressure 124/51 07/27/2022 3:18 PM CDT Pulse 61 07/27/2022 3:18 PM CDT Temperature 36.5 ??C (97.7 ??F) 07/27/2022 1:08 PM CD T Respiratory Rate 18 07/27/2022 6:53 PM CDT Oxygen Saturation 96% 07/27/2022 6:48 PM CDT Inhaled Oxygen Concentration - - Weight 98.4 kg (216 lb 14.9 oz) 07/27/2022 5:00 AM CDT Height 172.7 cm (5' 7.99) 07/27/2022 3:06 PM CD T Body Mass Index 32.99 07/27/2022 5:00 AM CDT Results * (ABNORMAL) Renal Function Panel (07/27/2022 8:02 AM CDT) Potassium, P 3.7 3.6 - 5.2 mmol/L 07/27/2022 8:43 AM CDT ECLR Sodium, P 130(L) 135 - 145 mmol/L 07/27/2022 8:43 AM CDT ECLR Chloride, P 86(L) 98 - 107 mmol/L 07/27/2022 8:43 AM CDT ECLR Bicarbonate, P 22 22 - 29 mmol/L 07/27/2022 8:43 AM CDT ECLR Anion Gap, P 22(H) 7 - 15 07/27/2022 8:43 AM CDT ECLR BUN (Blood Urea Nitrogen), P 64(H) 8 - 24 mg/dL 07/27/2022 8:43 AM CDT ECLR Creatinine 5.02(H) 0.74 - 1.35 mg/dL 07/27/2022 8:43 AM CDT ECLR Estimated GFR (eGFR) <15(L) >=60 mL/min/BSA 07/27/2022 8:43 AM CDT ECLR Comment: Estimated GFR calculated using the 2020 CKD_EPI creatinine equation. Calcium, Total, P 9.0 8.8 - 10.2 mg/dL 07/27/2022 8:43 AM CDT ECLR Glucose, P 166(H) 70 - 140 mg/dL 07/27/2022 8:43 AM CDT ECLR Albumin, P 3.7 3.5 - 5.0 g/dL 07/27/2022 8:43 AM CDT ECLR Phosphorus (Inorganic), P 4.1 2.5 - 4.5 mg/dL 07/27/2022 8:43 AM CDT ECLR Blood (Blood, Venous) 07/27/2022 8:02 AM CDT 07/27/2022 8:10 AM CDT Melanie Stoll C.N.P., R.N. LAB BLOOD ADD-ON [facility] [address] [place] [id number], [facility] ECLR [facility] in [place] [address] [place] [id number] from Last 3 Months or Most Recently Relevant to Health Maintenance
--- OUTSIDE RECORDS SUMMARY | 2023-07-04 14:37 | XMS_ITS | Referral Summary ---
Author Name Unknown Organization [facility] Address [address] [place] [address] Care Team Providers Care Vascular Surgeon Name Role Phone Elsewhere, Pcp Primary Care Provider Unavailabl e Source Comments Patient records contain information from all sites at [facility]. For routine questions regarding patient records, call [phone] during business hours, M-F 8:00 AM - 5:00 PM Central Time. Record requests for emergency care only can be directed to [phone] at any time.[facility] Allergies Active Allergy Reactions Criticality Noted Date [...] Secondary 01/21/2015 07/25/2022 Prosthesis Heart Valve 09/04/2008 Overview: 09/03/08 s/p AVR 25 mm [place] Magna Thermafix Pericardial Valve. No Coumadin needed for tissue AVR, recommend Aspirin 325mg daily X1 month, then 81 mg daily indefinitely. 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 Atherosclerotic Heart Diseas e Of [place] Coronary Artery Without Angina Pectoris 04/04/2007 07/25/2022 [...] Mass Index 32.99 07/27/2022 5:00 AM CDT Plan of Treatment Not on file Procedures Procedure Name Priority Date/Time Associated Diagnosis Comments RENAL FUNCTION PANEL, S Routine 07/27/2022 8:02 AM CDT from Last 3 Months or Most Recently Relevant to Health Maintenance Results * (ABNORMAL) Renal Function Panel (07/27/2022 [...] Melanie Stoll C.N.P., R.N. LAB BLOOD ADD-ON [facility] [address] [place] [id number], [facility] ECLR [facility] in [address] [address] from Last 3 Months or Most Recently Relevant to Health Maintenance Advance Directives For more information, please contact: [phone] * Full Code (Latest Code Status on File) Date Activated Date Inactivated Comments 07/24/2022 10:03 PM 07/27/2022 10:19 PM Question Answer Comments Full Code: Not Discussed Due to: Patient not available Care Teams Vascular Surgeon Relationship Specialty Start Date End Date Elsewhere, Pcp PCP - General Internal Medicine 07/25/22
--- OUTSIDE RECORDS SUMMARY | 2023-07-04 14:37 | XMS_ITS ---
Author Name Gabrielle, Clinic Address [address] [place], [place] [id number] Phone [phone] Organization [facility] e, NA DOCUMENT DISCLAIMER Multiple document versions may exist, please be sure you review the latest version. The information in the [facility] Continuity of Care Document represents a summary of certain health and medical information. It may not contain the complete medical history for the patient and should be independently verified. The represented time in the document is Eastern Time. PROBLEMS Problem Code Status Onset Date Hyperkalemia E87.5 Active March 24 Type 2 diabetes mellitus wit h diabetic neuropathy, unspecified E11.40 Active November 07, 2022 Secondary hyperparathyroidism of renal origin N25.81 Active November 07, 2022 Secondary hyperparathyroidis m, not elsewhere classified E21.1 Active September 26, 2022 Shortness of breath R06.02 Active July 29, 2022 Iron deficiency anemia, unspecified D50.9 Activ e March 16, 2022 Encounter for immunization Z23 Active N ov2021 End stage renal disease N18.6 Active Deco 2021 Anemia in chronic kidney disease D63.1 Active January 17, 2022 ALLERGIES AND ADVERSE REACTIONS Substance Reaction Severity Status lisinopril cough Active SOCIAL HISTORY Tobacco Use Status Tobacco Type Unknown if ever consumed tobacco - Caregiver Characteristics No Information Available Characteristics of Home environment No Information Available MEDICATIONS Prescribed Medications for Dialysis Treatments Medication Instructions Dosage Route Start Date End Date Stat us Doxercalciferol (Hectorol) 3X Week 3 mcg Intravenous - push February 27, 2023 February 23, 2024 Active Etelcalcetide (Parsabiv) Post Dialysis, 3X Week 10 mg Intravenous - push November 07, 2022 November 08, 2023 Active Heparin Sodium (Porcine) 1,000 Units/mL Systemic Bolus, Every Treatment, Total treatment minutes 240 3000 units Intravenous - push November 07, 2022 November 06, 2023 Active Mircera During Dialysis, Every 4 weeks 75 mcg Intravenous - push March 15, 2023 March 13, 2024 Active Home Medications Medication Instructions Dosage Route Start Date End Date Status albuterol sulfate 2.5 mg/3 mL (0.083 %) Inhale as directed three times a day as needed 3 ml INHALATION May 01, 2019 Active allopurinol 100 mg Take by mouth once a day as directed 1 tablet ORAL May 01, 2019 Active atorvastatin 40 mg Take once a day 1 tablet ORAL O ctober 2021 Active cholecalciferol (vitamin D3) 50 mcg (2,000 unit) Take by mouth once a day 1 tablet ORAL May 01, 2019 Active ipratropium-albute rol 0.5 mg-3 mg(2.5 mg base)/3 mL Inhale as directed every six hours as needed 3 ml INHALATION May 01, 2019 Active lidocaine-prilocai ne 2.5-2.5% Apply to affected area three times a week as directed 1 a small amount TOPICAL December 14, 2022 Active metoprolol succinate 25 mg Take by mouth once a day 1/2 tablet ORAL June 05, 2019 Active midodrine 10 mg Take by mouth as directed 1 tablet ORAL January 17, 2022 Active Plavix 75 mg Take by mouth once a day 1 tablet ORAL January 17, 2022 Active Protonix 40 mg Take by mouth every morning one hour before meals 1 tablet ORAL November 15, 2021 Active sevelamer carbonate 800 mg Take by mouth three times a day with meals 1 tablet ORAL January 25, 2023 Active Triphrocaps 1 mg Take by mouth once a day 1 capsule ORAL June 24, 2019 Active aspirin 81 mg Take by mouth once a day 1 tablet ORAL January 17, 2022 June 28, 2023 Discontinued VITAL SIGNS Post-Treatment Vital Signs Vital Sign Value Date / Time Blood Pressure-sitting 143/47 mmHg July 03, 2023 08:23 AM Blood Pressure-standing 105/51 mmHg June 08:23 AM Heart Rate 60 beats per minute July 02 08:23 AM Respiratory Rate 18 breaths per minute July 03, 2023 08:23 AM Temperature 97.9 deg. F July 03, 2023 0 8:23 AM Weight Vital Sign Value Date / Time Estimated Dry Weight 95.5 kg June 20 11:59 PM Pre-Dialysis 100.10 kg July 03, 2023 0 8:23 AM Post-Dialysis 95.90 kg July 03, 2023 0 8:23 AM Other Other Value Date / Time Height 173 cm August 25, 2021 12 :00 AM [facility] LAB RESULTS Hematology Result Type Result Value Relevant Referen ce Range Interpretation Date Platelets 205 1000/mcL 130 - 400 1000/mcL - Nove mb2022 WBC (No Diff) 8.06 1000/mcL 4.80 - 10.80 1000/mcL - January 18, 2023 UIBC (Calc) 127 mcg/dL 155 - 355 mcg/dL Low Novembe r 2022 TIBC 204 mcg/dL 185 - 515 mcg/dL - January 20, 2023 Transferrin Sat. (Calc) 38 % 20 - 55 % - January 20 WBC (No Diff) 9.51 1000/mcL 4.80 - 10.80 1000/mcL - February 22, 2023 Platelets 126 1000/mcL 130 - 400 1000/mcL Low Dece mb2022 Transferrin Sat. (Calc) 37 % 20 - 55 % - February 22 TIBC 183 mcg/dL 185 - 515 mcg/dL Low February 22, 2023 UIBC (Calc) 116 mcg/dL 155 - 355 mcg/dL Low Decemb2022 UIBC (Calc) 147 mcg/dL 155 - 355 mcg/dL Low March 22, 2023 Transferrin Sat. (Calc) 29 % 20 - 55 % - March 22, 2023 TIBC 206 mcg/dL 185 - 515 mcg/dL - March 22, 2023 WBC (No Diff) 10.22 1000/mcL 4.80 - 10.80 1000/mcL - March 22, 2023 Platelets 199 1000/mcL 130 - 400 1000/mcL - Uche lele2023 Hemoglobin x 3 30.3 % 42.0 - 54.0 % Low April 05, 2023 Hemoglobin x 3 31.2 % 42.0 - 54.0 % Low April 12, 2023 Hemoglobin x 3 29.1 % 42.0 - 54.0 % Low April 19, 2023 Platelets 167 1000/mcL 130 - 400 1000/mcL - Febr uary 2023 Hemoglobin x 3 30.6 % 42.0 - 54.0 % Low Februar 2023 MCHC 33.2 g/dL 30.0 - 36.0 g/dL - April 26, 2023 MCH 36.8 pg 27.0 - 31.0 pg High April RDW 14.9 % 11.5 - 14.5 % High April WBC (No Diff) 9.49 1000/mcL 4.80 - 10.80 1000/mcL - April 26, 2023 Iron 91 mcg/dL 45 - 160 mcg/dL - April 28, 2023 UIBC (Calc) 125 mcg/dL 155 - 355 mcg/dL Low Februar 2023 TIBC 216 mcg/dL 185 - 515 mcg/dL - April 28, 2023 Transferrin Sat. (Calc) 42 % 20 - 55 % - April 28 Ferritin 1260 ng/mL 22 - 322 ng/mL High April Hemoglobin x 3 30.9 % 42.0 - 54.0 % Low Februar y 2023 Hemoglobin x 3 29.4 % 42.0 - 54.0 % Low Februar y 2023 Hemoglobin x 3 29.7 % 42.0 - 54.0 % Low Februar y 2023 UIBC (Calc) 116 mcg/dL 155 - 355 mcg/dL Low May Iron 101 mcg/dL 45 - 160 mcg/dL - May 24, 2023 Transferrin Sat. (Calc) 47 % 20 - 55 % - May 24, 2023 TIBC 217 mcg/dL 185 - 515 mcg/dL - May Platelets 166 1000/mcL 130 - 400 1000/mcL - 2023 Hemoglobin x 3 30.3 % 42.0 - 54.0 % Low May RDW 13.8 % 11.5 - 14.5 % - May 23 024 MCHC 31.3 g/dL 30.0 - 36.0 g/dL - May MCH 34.3 pg 27.0 - 31.0 pg High May 24, 2023 WBC (No Diff) 7.94 1000/mcL 4.80 - 10.80 1000/mcL - May 24, 2023 Hemoglobin x 3 31.5 % 42.0 - 54.0 % Low May 182023 HGB 9.8 g/dL 14.0 - 18.0 g/dL Low May Hemoglobin x 3 29.4 % 42.0 - 54.0 % Low May 192023 HGB 10.4 g/dL 14.0 - 18.0 g/dL Low May Hemoglobin x 3 31.2 % 42.0 - 54.0 % Low May 192023 Transferrin Sat. (Calc) 36 % 20 - 55 % - June 21, 2023 UIBC (Calc) 133 mcg/dL 155 - 355 mcg/dL Low June TIBC 209 mcg/dL 185 - 515 mcg/dL - June Iron 76 mcg/dL 45 - 160 mcg/dL - June 21, 2023 Platelets 156 1000/mcL 130 - 400 1000/mcL - Apri l 2023 HGB 10.3 g/dL 14.0 - 18.0 g/dL Low June Hemoglobin x 3 30.9 % 42.0 - 54.0 % Low June MCHC 32.7 g/dL 30.0 - 36.0 g/dL - June RDW 15.3 % 11.5 - 14.5 % High June 20 024 MCH 35.3 pg 27.0 - 31.0 pg High June 21, 2023 RBC 2.92 mill/mcL 4.70 - 6.10 mill/mcL Low June 21, 2023 HCT 31.5 % 42.0 - 52.0 % Low June 20 024 WBC (No Diff) 7.53 1000/mcL 4.80 - 10.80 1000/mcL - June 21, 2023 HGB 10.3 g/dL 14.0 - 18.0 g/dL Low June Hemoglobin x 3 30.9 % 42.0 - 54.0 % Low June 182023 Metabolic/Renal Result Type Result Value Relevant Referen ce Range Interpretation Date Potassium 5.3 mEq/L 3.5 - 5.1 mEq/L High March 202023 BUN/Creat Ratio 9.3 10.0 - 20.0 Low April 26, 2023 Creatinine, Serum 6.24 mg/dL 0.60 - 1.30 mg/dL High April 26, 2023 BUN 58 mg/dL 6 - 19 mg/dL High April 26, 2023 BUN, Post 11 mg/dL 6 - 19 mg/dL - April 26, 2023 URR, Calc 81 % 65 - 80 % High April 26 024 Sodium 133 mEq/L 136 - 145 mEq/L Low April 28, 2023 Potassium 5.5 mEq/L 3.5 - 5.1 mEq/L High April 28, 2023 Chloride 100 mEq/L 96 - 108 mEq/L - April Bicarbonate 23 mEq/L 20 - 31 mEq/L - April Potassium 5.1 mEq/L 3.5 - 5.1 mEq/L - May 24, 2023 Sodium 132 mEq/L 136 - 145 mEq/L Low May 24, 2023 Bicarbonate 20 mEq/L 20 - 31 mEq/L - May 24, 2023 Chloride 101 mEq/L 96 - 108 mEq/L - May 24, 2023 BUN 62 mg/dL 6 - 19 mg/dL High May 23 BUN/Creat Ratio 10.4 10.0 - 20.0 - May Creatinine, Serum 5.98 mg/dL 0.60 - 1.30 mg/dL High May 24, 2023 URR, Calc 81 % 65 - 80 % High May 24, 2023 BUN, Post 12 mg/dL 6 - 19 mg/dL - May 23 URR, Calc 81 % 65 - 80 % High June 21, 2023 Bicarbonate 22 mEq/L 20 - 31 mEq/L - June 21, 2023 Potassium 5.4 mEq/L 3.5 - 5.1 mEq/L High June 21, 2023 Chloride 98 mEq/L 96 - 108 mEq/L - June 21, 2023 BUN/Creat Ratio 11.0 10.0 - 20.0 - June Sodium 132 mEq/L 136 - 145 mEq/L Low June 21, 2023 Creatinine, Serum 6.72 mg/dL 0.60 - 1.30 mg/dL High June 21, 2023 BUN 74 mg/dL 6 - 19 mg/dL High June 20 BUN, Post 14 mg/dL 6 - 19 mg/dL - June 20 HD Adequacy Result Type Result Value Relevant Referen ce Range Interpretation Date Krt/V 0.00 No Reference Ran ge Provided - January 18, 2023 Krt/V 0.00 No Reference Ran ge Provided - February 22, 2023 Krt/V 0.00 No Reference Ran ge Provided - March 22, 2023 spKt/V Gotch 2.11 No Reference Ran ge Provided - April 26, 2023 wstdKt/V without residual 2.7 No Reference Range Provided - April 26, 2023 wstdKt/V 2.7 No Reference Ran ge Provided - April 26, 2023 Krt/V 0.00 No Reference Ran ge Provided - April 26, 2023 wstdKt/V, residual 0.0 No Reference Range Provided - April 26, 2023 eKt/V ([place]) 1.74 No Reference Range Provided - April 26, 2023 spKt/V (Daugirdas II) 1.99 No Reference Range Provided - April 26, 2023 eKt/V ([place]) 1.72 No Reference Range Provided - May 24, 2023 Krt/V 0.00 No Reference Ran ge Provided - May 24, 2023 wstdKt/V without residual 2.7 No Reference Range Provided - May 24, 2023 wstdKt/V 2.7 No Reference Ran ge Provided - May 24, 2023 wstdKt/V, residual 0.0 No Reference Range Provided - May 24, 2023 spKt/V (Daugirdas II) 1.97 No Reference Range Provided - May 24, 2023 spKt/V Gotch 2.07 No Reference Ran ge Provided - May 24, 2023 wstdKt/V 2.7 No Reference Ran ge Provided - June 21, 2023 spKt/V Gotch 2.09 No Reference Ran ge Provided - June 21, 2023 Krt/V 0.00 No Reference Ran ge Provided - June 21, 2023 eKt/V ([place]) 1.74 No Reference Range Provided - June 21, 2023 spKt/V (Daugirdas II) 1.99 No Reference Range Provided - June 21, 2023 wstdKt/V, residual 0.0 No Reference Range Provided - June 21, 2023 wstdKt/V without residual 2.7 No Reference Range Provided - June 21, 2023 Bone/Mineral Result Type Result Value Relevant Referen ce Range Interpretation Date Magnesium 1.7 mg/dL 1.6 - 2.6 mg/dL - July 06, 2022 Magnesium 1.8 mg/dL 1.6 - 2.6 mg/dL - October 05, 2022 Vitamin D 25 Hydroxy 30.1 ng/mL 30.0 - 100.0 ng/mL - October 05, 2022 Vitamin D 25 Hydroxy 36.4 ng/mL 30.0 - 100.0 ng/mL - November 07, 2022 Magnesium 1.6 mg/dL 1.6 - 2.6 mg/dL - October Magnesium 1.8 mg/dL 1.6 - 2.6 mg/dL - December PTH-Intact, Plasma 661 pg/mL 16 - 80 pg/mL High Jan Vitamin D 25 Hydroxy 23.2 ng/mL 30.0 - 100.0 ng/mL Low January 18, 2023 PTH-Intact, Plasma 847 pg/mL 16 - 80 pg/mL High Feb PTH-Intact, Plasma 578 pg/mL 16 - 80 pg/mL High Mar PTH-Intact, Plasma 593 pg/mL 16 - 80 pg/mL High Feb ruary 2023 Alkaline Phosphatase 146 U/L 40 - 129 U/L High Fe bruary 2023 Magnesium 1.7 mg/dL 1.6 - 2.6 mg/dL - April 28, 2023 Ca x P Product 45 0 - 54 - April Calcium, Total 9.9 mg/dL 8.7 - 10.4 mg/dL - 2023 Phosphorus 4.5 mg/dL 2.6 - 4.5 mg/dL - April 28, 2023 Phosphorus 3.4 mg/dL 2.6 - 4.5 mg/dL - May 24, 2023 Calcium, Total 9.8 mg/dL 8.7 - 10.4 mg/dL - 2023 Ca x P Product 33 0 - - May 24, 2023 Corrected Ca x P Product 33 0 - - May 24, 2023 Calcium, Total 10.0 mg/dL 8.7 - 10.4 mg/dL - 2023 PTH-Intact, Plasma 567 pg/mL 16 - 80 pg/mL [facility] 2023 Corrected Ca x P Product 42 0 - - June 21, 2023 Phosphorus 4.3 mg/dL 2.6 - 4.5 mg/dL - June 21, 2023 Ca x P Product 42 0 - - June 21, 2023 Calcium, Total 9.7 mg/dL 8.7 - 10.4 mg/dL - Apri l 2023 Liver/Nutrition Result Type Result Value Relevant Referen ce Range Interpretation Date Total Protein 7.1 g/dL 6.0 - 8.5 g/dL - 2023 eNPCR 1.14 No Reference Ran ge Provided - April 26, 2023 A/G Ratio 1.2 1.0 - 2.0 - April 26, Globulin (Calc) 3.3 g/dL 2.0 - 4.0 g/dL - 2023 Albumin (BCG) 3.8 g/dL 3.5 - 5.2 g/dL - 2023 Albumin (BCG) 4.2 g/dL 3.5 - 5.2 g/dL - May Total Protein 7.4 g/dL 6.0 - 8.5 g/dL - May A/G Ratio 1.3 1.0 - 2.0 - May 24, 2023 Globulin (Calc) 3.2 g/dL 2.0 - 4.0 g/dL - May 24, 2023 eNPCR 1.19 No Reference Ran ge Provided - May 24, 2023 A/G Ratio 1.3 1.0 - 2.0 - June 21, 2023 Globulin (Calc) 3.0 g/dL 2.0 - 4.0 g/dL - June 21, 2023 Albumin (BCG) 4.0 g/dL 3.5 - 5.2 g/dL - June Total Protein 7.0 g/dL 6.0 - 8.5 g/dL - June eNPCR 1.39 No Reference Ran ge Provided - June 21, 2023 Immunochemistry Result Type Result Value Relevant Reference Range Interpre tation Date HCV s/co ratio 0.08 0.00 - 0.79 - October HCV s/co ratio < 0.02 0.00 - 0.79 - January 18, 2023 Trace Elements Result Type Result Value Relevant Reference Range Interpre tation Date Aluminum < 5 mcg/L 0 - 10 mcg/L - November 07 023 Aluminum 6 mcg/L 0 - 10 mcg/L - January 18, 2023 Infectious Diseases Result Type Result Value Relevant Referen ce Range Interpretation Date Hep B core Ab Total (anti-HBc) Negative No Reference Range Provided - November 07, 2022 HCV Ab (anti-HCV) Nonreactive No Reference R nakul Provided - January 18, 2023 Hep B Surface Ab (anti-HBs) 61 mIU/mL No Reference Range Provided - January 18, 2023 Hep B Surface Ag (HBsAg) Negative No Reference Range Provided - June 21, 2023 DIALYSIS PRESCRIPTION Conventional Hemodialysis Data Element Value Order Date/Time June 21, 2023 Frequency 3X Week Treatment Days MonWedFri Dialyzer 180NRe Optiflux Treatment Time (Total Minutes) 240 min Blood Flow Rate (mL/min) 450 mL/min Dialysate Flow Rate Manual 800 Estimated Dry Weight 95.5 kg Dialysate Concentrate 2.0 K, 2.5 Ca, 1.0 Mg, 100 Dextrose (G2251) Sodium (mEq/L) 138 mEq/L Bicarb Machine Setting (mEq/L) 30 mEq/L Dialysis Access Hemodialysis-AV Fist penny-Standard, Left Upper Arm, Other/Unknown Arterial Needle Size 15g1 Venous Needle Size 15g1 IMMUNIZATIONS Vaccine Date Dose Route Status Moderna COVID-19 Vaccine, Bivalent, Booster February 02, 2022 0.5 mL Intramuscular Completed Moderna COVID-19 Vaccine, Bivalent, Booster February 02, 2022 0.5 mL Intramuscular Completed Moderna COVID-19 Vaccine, Booster January 29, 2021 0.25 m L Intramuscular Completed HEPLISAV-B, series 4 of 4 January 04, 2021 20.0 mcg Intr amuscular Completed HEPLISAV-B, series 3 of November 09, 2020 20.0 mcg Intra muscular Completed HEPLISAV-B, series 2 of October 12, 2020 20.0 mcg Intramu scular Completed HEPLISAV-B, series 1 of September 07, 2020 20.0 mcg Intramu scular Completed Moderna COVID-19 Vaccine, Do se 2 of May 11, 2020 0.5 mL Intramuscular Completed Moderna COVID-19 Vaccine, Do se 1 of April 17, 2020 0.5 mL Intramuscular Completed [id number]-M-[id number], series 4 of October 30, 2019 40.0 mcg Intramuscular Completed [id number]-N-[id number], series 3 of 4 July 03, 2019 40.0 mcg I ntramuscular Completed DMKNXHF-O-BTFFX, series 2 of 4 June 03, 2019 40.0 mcg I ntramuscular Completed NQDQJBT-A-QCIIC, series 1 of 4 May 03, 2019 40.0 mcg Intramuscular Completed TRANSPLANT WAITLIST STATUS No Information on Transplant Waitlist Status ADVANCE DIRECTIVES Directive Description Ordered By Effective Date Resuscitation status Full Code Ernie Pompa Nov 07, 2022 DIALYSIS TREATMENTS Conventional Hemodialysis Date Pre-Treatment Vitals Post-Treatment Lexus ls Duration (hr) BFR (mL/min) Dialysate Dialyzer Dialysis Access Meds Admin June 28, 2023 Weight 99.40 kg Weight 95.70 kg 04:00:00 450 2.0 K, 2.5 Ca, 1.0 Mg, 100 Dextrose (G2251) 180nre Optifl ux Blood Pressure-sitting 139/63 mmHg Blood Pressure-sit ting 121/53 mmHg Blood Pressure-standing 159/77 mmHg Blood Pressure-st anding 100/40 mmHg Heart Rate 96 beats per minute Heart Rate 53 beats per minute Respiratory Rate 18 breaths per minute Respiratory Rate 18 breaths per minute Temperature 97.9 deg. F Temperature 98.2 deg. F June 30, 2023 Weight 98.50 kg Weight 95.00 kg 04:00:00 450 2.0 K, 2.5 Ca, 1.0 Mg, 100 Dextrose (G2251) 180nre Optiflux Hemodialysis-AV Fistula-Standard, Left Upper Arm, Other/Unknown Doxercalciferol (Hectorol); 3mcg,Intravenous - push Etelcalcetide (Parsabiv); 10mg,Intravenous - push Heparin Sodium (Porcine) 1,000 Units/mL Systemic; 3000units,Intravenous - push Blood Pressure-sitting 137/48 mmHg Blood Pressure-sit ting 126/50 mmHg Blood Pressure-standing 136/68 mmHg Blood Pressure-st anding 109/46 mmHg Heart Rate 96 beats per minute Heart Rate 72 beats per minute Respiratory Rate 18 breaths per minute Respiratory Rate 18 breaths per minute Temperature 97.3 deg. F Temperature 98.3 deg. F July 03, 2023 Weight 100.10 kg Weight 95.90 kg 04:05:00 450 2.0 K, 2.5 Ca, 1.0 Mg, 100 Dextrose (G2251) 180nre Optiflux Hemodialysis-AV Fistula-Standard, Left Upper Arm, Other/Unknown Doxercalciferol (Hectorol); 3mcg,Intravenous - push Etelcalcetide (Parsabiv); 10mg,Intravenous - push Heparin Sodium (Porcine) 1,000 Units/mL Systemic; 3000units,Intravenous - push Blood Pressure-sitting 128/46 mmHg Blood Pressure-sit ting 143/47 mmHg Blood Pressure-standing 150/52 mmHg Blood Pressure-st anding 105/51 mmHg Heart Rate 78 beats per minute Heart Rate 60 beats per minute Respiratory Rate 18 breaths per minute Respiratory Rate 18 breaths per minute Temperature 98.0 deg. F Temperature 97.9 deg. F
--- OUTSIDE RECORDS SUMMARY | 2023-07-04 14:37 | XMS_ITS | Clinical Summary ---
Author Name Unknown Organization [facility] Address [address] [place] [address] Care Team Providers Care Qa Intern Name Role Phone Elsewhere, Pcp Primary Care Provider Unavailabl e Source Comments Patient records contain information from all sites at [facility]. For routine questions regarding patient records, call [phone] during business hours, M-F 8:00 AM - 5:00 PM Central Time. Record requests for emergency care only can be directed to [phone] at any time.[facility] Allergies Active Allergy Reactions Criticality Noted Date [...] valve stenosis. 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 07/25/2022 [...] 07/27/2022 5:00 AM CDT Plan of Treatment Health Maintenance Due Date Last Done Comments Depression Monitoring (PHQ-9) 1945 Diabetic Office Visit with F oot Exam 1945 Dilated Eye Exam 1945 Hemoglobin A1C 1945 Office Visit for Blood Press ure Check / Re-check 1946 Urine Albumin 1945 Zoster Vaccines (1 of 2) 1996 DTaP,Tdap,and Td Vaccines (2 - Td or Tdap) 08/29/2018 08/29/2008 Fall Risk Screen (Annual) 03/20/2023 Creatinine Level (Kidney Fun ction Test) 07/28/2023 07/27/2022, 07/26/2022, 07/25/2022, Additional history exists Pneumococcal vaccine (65+ years) Completed 06/14/2022, 12/09/2015, 08/21/2014, Additional history exists Influenza Vaccine Completed 12/20/2022, , 12/04/2019, Additional history exists COVID-19 Vaccine Completed 01/07/2023, , 10/15/2021, Additional history exists Procedures Procedure Name Priority Date/Time Associated Diagnosis [...] Melanie Stoll C.N.P., R.N. LAB BLOOD ADD-ON [facility] [address] [place] [id number], [facility] E[facility] in [address] [address] from Last 3 Months or Most Recently Relevant to Health Maintenance Advance Directives For more information, please contact: [phone] * Full Code (Latest Code Status on File) Date Activated Date Inactivated Comments 07/24/2022 10:03 PM 07/27/2022 10:19 PM Question Answer Comments Full Code: Not Discussed Due to: Patient not available Care Teams Qa Intern Relationship Specialty Start Date End Date Elsewhere, Pcp PCP - General Internal Medicine 07/25/22
--- OUTSIDE RECORDS SUMMARY | 2023-07-04 14:37 | XMS_ITS | Clinical Summary ---
Author Name Unknown Organization [place] Address [address] [place] [address] Care Team Providers Care Accordion Tuner Name Role Phone Liban Leos Primary Care Provider [phone] Ernie Pompa MD Unavailable [phone] Allergies Active Allergy Reactions Criticality Noted Date Comments Blood-Group Specific Substance Other (See Comments) 01/15/2019 Patient has a Suggestive Warm Auto antibody. Blood products may be delayed. Draw patient 24 hours prior to transfusion. Draw one red top and two purple top tubes for all type and screen orders. Lisinopril Cough 06/07/2006 Medications Medication Sig Dispensed Refills Start Date End Date Status allopurinol (ZYLOPRIM) 100 MG tablet Take 100 mg by mouth daily 12/15/2020 Active atorvastatin (LIPITOR) 20 MG tablet Take 20 mg by mouth daily 12/15/2020 Active fluticasone (FLONASE) 50 MCG/ACT nasal spray [place] 1 spray in nostril daily 12/15/2020 Active fluticasone-salmeter ol (ADVAIR HFA) 115-21 MCG/ACT inhaler Inhale 2 puffs into the lungs 2 times daily 07/04/2021 Active metoprolol succinate ER (TOPROL XL) 25 MG 24 hr tablet Take 0.5 tablets by mouth daily 12/15/2020 Active sevelamer carbonate (RENVELA) 800 MG tablet Take 1 tablet by mouth 3 times daily (with meals) 09/10/2021 Active multivitamin RENAL (MULTIVITAMIN RENAL) 1 MG capsule Take 1 capsule by mouth daily 12/15/2020 Active lidocaine-prilocaine (EMLA) 2.5-2.5 % external cream APPLY SMALL AMOUNT TO ACCESS SITE (AVF) 1 TO 2 HOURS BEFORE DIALYSIS. COVER WITH OCCLUSIVE DRESSING (SARAN WRAP) 08/13/2021 Active pantoprazole (PROTONIX) 40 MG EC tabletIndications:UG I bleed Take 1 tablet (40 mg) by mouth every morning (before breakfast) 30 tablet 1 10/12/2021 Active albuterol (PROAIR HFA/PROVENTIL HFA/VENTOLIN HFA) 108 (90 Base) MCG/ACT inhalerIndications:R SV bronchitis Inhale 2 puffs into the lungs every 4 hours as needed for shortness of breath / dyspnea or wheezing 18 g 1 12/25/2021 Active guaiFENesin (MUCINEX) 600 MG 12 hr tabletIndications:RS V bronchitis Take 2 tablets (1,200 mg) by mouth 2 times daily 30 tablet 12/25/2021 Active Active Problems Problem Noted Date Diagnosed Date CKD (chronic kidney disease) stage 5, GFR less than 15 ml/min 10/08/2021 Heart failure with preserved ejection fraction 0 10/08/2021 Overview: ef 67% 02/2019 UGI bleed 10/08/2021 Primary osteoarthritis of knees, bilateral 06/09 Overview: May 2021: bilateral cortisone knee injections by Dr. Lara. 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 No Coumadin needed for tissue AVR, recommend Aspirin 325mg daily X1 month, then 81 mg daily indefinitely. Coronary atherosclerosis 04/04/2007 Overview: Angiogram/PCI 04/04/07: LAD: 70% stenosis mid, 90% distal. LCx: mild luminal irregularities. RCA: dominant, mild luminal irregularities. EF 60%. LV Pressure = 168/24. RA=12; RV=40/15; PW=16; PA=32/17, mean 22. PCI: TAXUS Stent to Mid LAD, PTCA/BMS to Distal LAD. Essential hypertension 06/07/2006 Hyperlipidemia 06/07/2006 Polyneuropathy in other diseases classified else where (H24) 06/07/2006 Diabetes mellitus with neuro logical manifestations, uncontrolled 02/18/2002 Social History Tobacco Use Types Packs/Day Years Used Date Smoking Tobacco: Never Dip, chew, snus or snuff Smokeless Tobacco: Former Chew Quit: 2000 Adolescent Education Answer Date Record ed Getting School Help Needed Not on file 12/20 Sex and Gender Information Value Date Recorded Sex Assigned at Not on file Gender Identity Not on file Sexual Orientation Not on file Last Filed Vital Signs Vital Sign Reading Time Taken Comments Blood Pressure 90/51 12/25/2021 1:47 PM CDT Pulse 84 12/25/2021 2:10 PM CDT Temperature 36.8 ??C (98.2 ??F) 12/25/2021 1:47 PM CD T Respiratory Rate 20 12/25/2021 2:10 PM CDT Oxygen Saturation 99% 12/25/2021 2:10 PM CDT Inhaled Oxygen Concentration - - Weight 104.4 kg (230 lb 1.6 oz) 12/25/2021 3:59 AM CDT Height 177.8 cm (5' 10) 12/24/2021 2:46 AM CDT Body Mass Index 33.02 12/24/2021 2:46 AM CDT Plan of Treatment Health Maintenance Due Date Last Done Comments A1C 1946 ADVANCE CARE PLANNING 1946 ANNUAL REVIEW OF HM ORDERS 1946 DIABETIC FOOT EXAM 1946 EYE EXAM 1946 HF ACTION PLAN 1946 LIPID 1946 MICROALBUMIN 1946 PARATHYROID 1946 PHOSPHORUS 1946 TSH W/FREE T4 REFLEX 1946 URINALYSIS 08/06/1947 HEPATITIS C SCREENING 1964 ZOSTER IMMUNIZATION (1 of 2) 1996 RSV VACCINE ( & 60+) (1 - 1-dose 60+ series) 2006 FALL RISK ASSESSMENT 08/06/2011 DTAP/TDAP/TD IMMUNIZATION (2 - Td or Tdap) 08/29/2018 08/29/2008, 03/20/1997 HEPATITIS B IMMUNIZATION (5 of 5 - Risk Dialysis Recombivax 3-dose series) 10/29/2020 10/30/2019, 07/03/2019, 06/03/2019, Additional history exists MEDICARE ANNUAL WELLNESS VISIT 12/15/2021 12/15/2020 BMP 04/20/2022 01/18/2022, 10/0 10/2021, 12/24/2021, Additional history exists HEMOGLOBIN 07/18/2022 01/18/2022, 100 09/2021, 12/23/2021, Additional history exists COVID-19 Vaccine (2022- season) 2022 10/15/2021, 01/29/2021, 05/11/2020, Additional history exists INFLUENZA VACCINE (#1) 2022 , 12/18/2020, 12/04/2019, Additional history exists ALT 12/23/2022 12/23/2021, 10/08/2021 CBC 01/18/2023 01/18/2022, 10/0 09/2021, 12/23/2021, Additional history exists PHQ-2 (once per calendar year) 2023 Pneumococcal Vaccine: 65+ Years Completed 12/09/2015, 08/21/2014, 10/07/2008 ALK PHOS Completed 12/23/2021, 10/08/2021 HPV IMMUNIZATION Aged Out No longer e ligible based on patient's age to complete this topic IPV IMMUNIZATION Aged Out No longer e ligible based on patient's age to complete this topic MENINGITIS IMMUNIZATION Aged Out No l onger eligible based on patient's age to complete this topic RSV MONOCLONAL ANTIBODY Aged Out No l onger eligible based on patient's age to complete this topic Procedures Procedure Name Priority Date/Time Associated Diagnosis Comments CBC WITH PLATELETS Routine 01/18/2022 5: 13 AM CDT Anemia, unspecified BASIC METABOLIC PANEL Routine 01/18/2022 5:13 AM CDT Anemia, unspecified COMPREHENSIVE METABOLIC PANEL STAT 12/23/2021 7:51 PM CDT from Last 3 Months or Most Recently Relevant to Health Maintenance Results * (ABNORMAL) Basic metabolic panel (01/18/2022 5:13 AM CDT) Sodium 136 136 - 145 mmol/L 01/18/2022 10:51 AM CDT [facility] Potassium 5.7(H) 3.4 - 5.3 mmol/L 01/18/2022 10:51 AM CDT [facility] Chloride 94(L) 98 - 107 mmol/L 01/18/2022 10:51 AM CDT [facility] Carbon Dioxide (CO2) 29 22 - 29 mmol/L 01/18/2022 10:51 AM CDT [facility] Anion Gap 13 7 - 15 mmol/L 01/18/2022 10:51 AM CDT [facility] Urea Nitrogen 52.0(H) 8.0 - 23.0 mg/dL 01/18/2022 10:51 AM CDT [facility] Creatinine 5.14(H) 0.67 - 1.17 mg/dL 01/18/2022 10:51 AM CDT [facility] Calcium 10.5(H) 8.8 - 10.2 mg/dL 01/18/2022 10:51 AM CDT [facility] Glucose 98 70 - 99 mg/dL 01/18/2022 10:51 AM CDT [facility] GFR Estimate 11(L) >60 mL/min/1.7 3m2 01/18/2022 10:51 AM CDT [facility] Comment:Effective February 182020 eGFRcr in adults is calculated using the 2020 CKD-EPI creatinine equation which includes age and gender (Brigette et al., NEJM, DOI: 10.1056/LEQDrn9229903) Blood STRUCTURE OF RIGHT UPPER LIMB / Unknown Venipuncture / Unknown 01/18/2022 5:13 AM CDT 01/18/2022 7:54 AM CDT Ashtyn Vogt MD LAB - BLOOD ORDERABL ES [facility] [address] [facility], [address] [place] [address], [facility] [phone] * (ABNORMAL) CBC with platelets (01/18/2022 5:13 AM CDT) WBC Count 7.2 4.0 - 11.0 10e3/uL 01/18/2022 10:48 AM CDT [facility] RBC Count 2.84(L) 4.40 - 5.90 10e6/uL 01/18/2022 10:48 AM CDT [facility] Hemoglobin 8.6(L) 13.3 - 17.7 g/dL 01/18/2022 10:48 AM CDT [facility] Hematocrit 28.9(L) 40.0 - 53.0 % 01/18/2022 10:48 AM CDT [facility] MCV 102(H) 78 - 100 fL 01/18/2022 10:48 AM CDT [facility] MCH 30.3 26.5 - 33.0 pg 01/18/2022 10:48 AM CDT [facility] MCHC 29.8(L) 31.5 - 36.5 g/dL 01/18/2022 10:48 AM CDT [facility] RDW 17.4(H) 10.0 - 15.0 % 01/18/2022 10:48 AM CDT [facility] Platelet Count 177 150 - 450 10e3/uL 01/18/2022 10:48 AM CDT [facility] Blood STRUCTURE OF RIGHT UPPER LIMB / Unknown Venipuncture / Unknown 01/18/2022 5:13 AM CDT 01/18/2022 7:54 AM CDT Ashtyn Vogt MD LAB - BLOOD ORDERABL ES [facility] [address] [facility], [address] [place] [address], [facility] [phone] * (ABNORMAL) Comprehensive metabolic panel (12/23/2021 7:51 PM CDT) Sodium 134(L) 136 - 145 mmol/L 12/23/2021 8:18 PM CDT [facility] Potassium 5.7(H) 3.4 - 5.3 mmol/L 12/23/2021 8:18 PM CDT [facility] Chloride 92(L) 98 - 107 mmol/L 12/23/2021 8:18 PM CDT [facility] Carbon Dioxide (CO2) 26 22 - 29 mmol/L 12/23/2021 8:18 PM CDT [facility] Anion Gap 16(H) 7 - 15 mmol/L 12/23/2021 8:18 PM CDT [facility] Urea Nitrogen 47.9(H) 8.0 - 23.0 mg/dL 12/23/2021 8:18 PM CDT [facility] Creatinine 5.77(H) 0.67 - 1.17 mg/dL 12/23/2021 8:18 PM CDT [facility] Calcium 10.2 8.8 - 10.2 mg/dL 12/23/2021 8:18 PM CDT [facility] Glucose 116(H) 70 - 99 mg/dL 12/23/2021 8:18 PM CDT [facility] Alkaline Phosphatase 106 40 - 129 U/L 12/23/2021 8:18 PM CDT [facility] AST 36 10 - 50 U/L 12/23/2021 8:18 PM CDT [facility] ALT 17 10 - 50 U/L 12/23/2021 8:18 PM CDT [facility] Protein Total 7.9 6.4 - 8.3 g/dL 12/23/2021 8:18 PM CDT [facility] Albumin 3.9 3.5 - 5.2 g/dL 12/23/2021 8:18 PM CDT [facility] Bilirubin Total 0.8 <=1.2 mg/dL 12/23/2021 8:18 PM CDT [facility] GFR Estimate 10(L) >60 mL/min/1.7 3m2 12/23/2021 8:18 PM [facility]T [facility] Comment:Effective February 182020 eGFRcr in adults is calculated using the 2020 CKD-EPI creatinine equation which includes age and gender (Mirror Silverer et al., NEJM, DOI: 10.1056/[id number]) Blood STRUCTURE OF RIGHT UPPER LIMB / Unknown Venipuncture / Unknown 12/23/2021 7:51 PM CDT 12/23/2021 7:56 PM CDT Nakita Pruitt MD LAB - BLOOD ORDERABL ES LABORATORY [facility] Lab [address] [facility] Lab (1st floor, no room number) [place] [address], [facility] [phone] from Last 3 Months or Most Recently Relevant to Health Maintenance Advance Directives For more information, please contact: [phone] * Full Code (Latest Code Status on File) Date Activated Date Inactivated Comments 12/24/2021 12:26 AM 12/25/2021 6:18 PM All basic a nd advanced life-sustaining interventions are performed as appropriate Question Answer Comments Code status determined by: Discussion with patie nt/ legal decision maker * Full Code Date Activated Date Inactivated Comments 10/11/2021 10:33 AM 12/23/2021 7:15 PM Question Answer Comments Code status determined by: Discussion with patie nt/ legal decision maker * Full Code Date Activated Date Inactivated Comments 10/09/2021 1:43 AM 10/11/2021 10:33 AM All basic a nd advanced life-sustaining interventions are performed as appropriate Question Answer Comments Code status determined by: Discussion with fatoue nt/ legal decision maker Care Teams Accordion Tuner Relationship Specialty Start Date End Date Liban Leos [address] [place] [address] PCP - General Family Medicine 10/08/21 Ernie Pompa MD [address] [place] [address] Nephrology 10/08/21
--- OUTSIDE RECORDS SUMMARY | 2023-07-04 14:37 | XMS_ITS | Referral Summary ---
Author Name Unknown Organization [place] Address [address] [place] [address] Care Team Providers Care Director Of Accounting Name Role Phone Liban Leos Primary Care Provider [phone] Ernie Pompa MD Unavailable [phone] Allergies Active Allergy Reactions Criticality Noted Date [...] Active fluticasone (FLONASE) 50 MCG/ACT nasal spray [place] 1 spray in nostril daily 12/15/2020 Active [...] 12/24/2021 2:46 AM CDT Plan of Treatment Not on [...] and gender (Brigette et al., NEJM, DOI: 10.1056/[id number]) Blood STRUCTURE OF RIGHT UPPER LIMB / Unknown Venipuncture / Unknown 01/18/2022 5:13 AM CDT 01/18/2022 7:54 AM CDT Ashtyn Vogt MD LAB - BLOOD ORDERABL ES [facility] [address] [facility], [address] [place] [address], [facility] [phone] * (ABNORMAL) CBC with platelets (01/18/2022 5:13 AM CDT) [facility] WBC Count 7.2 4.0 - 11.0 10e3/uL [...] LAB - BLOOD ORDERABL ES [facility] [address] [facility], [address] [place] [address], [facility] [phone] * (ABNORMAL) Comprehensive metabolic panel (12/23/2021 7:51 PM CDT) Sodium 134(L) 136 - 145 mmol/L 12/23/2021 8:18 PM [facility]T [facility] Potassium 5.7(H) 3.4 - 5.3 mmol/L 12/23/2021 8:18 PM CDT [facility] Chloride 92(L) 98 - 107 mmol/L 12/23/2021 8:18 PM CDT [facility] Carbon Dioxide (CO2) 26 22 - 29 mmol/L 12/23/2021 8:18 PM CDT [facility] Anion Gap 16(H) 7 - 15 mmol/L 12/23/2021 8:18 PM CDT [facility] Urea Nitrogen 47.9(H) 8.0 - 23.0 mg/dL 12/23/2021 8:18 PM CDT [facility] Creatinine 5.77(H) 0.67 - 1.17 mg/dL 12/23/2021 8:18 PM CDT [facility] Calcium 10.2 8.8 - 10.2 mg/dL 12/23/2021 8:18 PM CDT [facility] Glucose 116(H) 70 - 99 mg/dL 12/23/2021 8:18 PM CDT [facility] Alkaline Phosphatase 106 40 - 129 U/L 12/23/2021 8:18 PM CDT [facility] AST 36 10 - 50 U/L 12/23/2021 8:18 PM CDT [facility] ALT 17 10 - 50 U/L 12/23/2021 8:18 PM CDT [facility] Protein Total 7.9 6.4 - 8.3 g/dL 12/23/2021 8:18 PM CDT [facility] Albumin 3.9 3.5 - 5.2 g/dL 12/23/2021 8:18 PM CDT [facility] Bilirubin Total 0.8 <=1.2 mg/dL 12/23/2021 8:18 PM CDT [facility] GFR Estimate 10(L) >60 mL/min/1.7 3m2 12/23/2021 8:18 PM CDT [facility]ORY Comment:Effective February 182020 eGFRcr in adults is calculated using the 2020 CKD-EPI creatinine equation which includes age and gender (Brigette et al., NEJM, DOI: 10.1056/[id number]) Blood STRUCTURE OF RIGHT UPPER LIMB / Unknown Venipuncture / Unknown 12/23/2021 7:51 PM CDT 12/23/2021 7:56 PM CDT Nakita Pruitt MD LAB - BLOOD ORDERABL ES [facility] Acute [facility] Lab [address] Lab (1st floor, no room number) [place] [address], [facility] [phone] from Last 3 Months or Most Recently Relevant to Health Maintenance Advance Directives For more information, please contact: [phone] * Full Code (Latest Code Status on [...] Discussion with patie nt/ legal decision maker Care Teams Director Of Accounting Relationship Specialty Start Date End Date Liban Leos [address] [place] [address] PCP - General Family Medicine 10/08/21 Ernie Pompa MD [address] [place] [address] Nephrology 10/08/21
--- OUTSIDE RECORDS SUMMARY | 2023-07-04 14:38 | XMS_ITS | Encounter Summary ---
Author Name Unknown Organization [facility] [place] Address [address] [place] [address] Care Team Providers Care Manager Patient Name Role Phone Unavailable Primary Care Provider Unavailabl e Encounter Details Date Type Department Care Team Description 06/21/2023 Orders Only [facility] [address] [place] [address] Ernie Pompa MD [address] [place] [address] Social History Tobacco Use Types Packs/Day Years Used Date Smoking Tobacco: Unknown Comments:Smoking History Inf o:Patient not screened Sex and Gender Information Value Date Recorded Sex Assigned at Not on file Gender Identity Not on file Sexual Orientation Not on file documented as of this encounter Plan of Treatment Not on file documented as of this encounter Procedures Procedure Name Priority Date/Time Associated Diagnosis Comments HD KINETICS Routine 06/21/2023 POST CHEMISTRY Routine 06/21/2023 IMMUNO CHEMISTRY Routine 06/21/2023 HEMATOLOGY Routine 06/21/2023 CHEMISTRY Routine 06/21/2023 [facility] RESULTS Routine 06/21/2023 documented in this encounter Results * [facility] Results (06/21/2023) WSTDKT/V 2.7 [facility] eNPCR 1.39 [facility] spKt/V Gotch 2.09 [facility] eKt/V ([place]) 1.74 [facility] nPCR_HD 1.48 [facility] PCR 85.02 [facility] eKdrt/V 1.81 [facility] eKt/V Gotch 1.81 [facility] spKt/V (Daugirdas II) 1.99 [facility] 06/21/2023 06/21/2023 [place] Ordering Provider LAB BLOOD ORDERABLE S Performing Organization Address City/[facility]/ZIP Co de Phone Number [facility] Contact Performing lab Unknown, [place] * (ABNORMAL) HD KINETICS (06/21/2023) % Urea Reduction 81(H) 65 - 80 % [facility] 06/21/2023 06/22/2023 5:1 7 AM CDT Narrative [facility] - 06/22/2023 Unless otherwise specified, test(s) performed at: [facility], [address] [place] [address], [place] [address] SWORD SWALLOWER: Alhaji Noguera M.D., Ph.D For any questions, please call customer service at FREQUENCY:MONTHLY Resulting Agency Comment Specimen source: Plasma Ernie Pompa MD LAB BLOOD ORDERABLES Performing Organization Address [facility] de Phone Number [facility] See order comments or contact performing lab Unknown, [place] * (ABNORMAL) [facility] (06/21/2023) BUN 74(H) 6 - 19 mg/dL [facility] Creatinine 6.72(H) 0.60 - 1.30 mg/dL [facility] BUN/Creatinine Ratio 11.0 10.0 - 20.0 [facility] Sodium 132(L) 136 - 145 mEq/L [facility] Potassium 5.4(H) 3.5 - 5.1 mEq/L [facility] Chloride 98 96 - 108 mEq/L [facility] Bicarbonate (CO2) 22 20 - 31 mEq/L [facility] Calcium 9.7 8.7 - 10.4 mg/dL [facility] Comment: Please note change in reference range. Corrected Calcium 9.7 8.7 - 10.4 mg/dL [facility] Comment: Corrected Calcium is not equivalent to measured Ionized Calcium. Phosphorus 4.3 2.6 - 4.5 mg/dL [facility] Calcium Phosphorus Product 42 0 - 54 [facility] Calcium Phosporus Product, Cor 42 0 - 54 [facility] Total Protein 7.0 6.0 - 8.5 g/dL [facility] Albumin 4.0 3.5 - 5.2 g/dL [facility] Globulin, Total 3.0 2.0 - 4.0 g/dL [facility] A/G Ratio 1.3 1.0 - 2.0 [facility] Iron 76 45 - 160 mcg/dL [facility] UIBC 133(L) 155 - 355 mcg/dL [facility] TIBC 209 185 - 515 mcg/dL [facility] Iron Saturation (TSat) 36 20 - 55 % [facility] 06/21/2023 06/22/2023 8:1 3 AM CDT Narrative [facility] - 06/22/2023 Unless otherwise specified, test(s) performed at: [facility], [address] [place] [address], [place] [address] SWORD SWALLOWER: Alhaji Noguera M.D., Ph.D For any questions, please call customer service at FREQUENCY:MONTHLY Resulting Agency Comment Specimen source: Serum Ernie Pompa MD LAB BLOOD ORDERABLES [facility] See order comments or contact performing lab Unknown, [place] * (ABNORMAL) HEMATOLOGY (06/21/2023) WBC 7.53 4.80 - 10.80 1000/mcL [facility] RBC 2.92(L) 4.70 - 6.10 mill/mcL [facility] Hematocrit 31.5(L) 42.0 - 52.0 % [facility] MCV 108(H) 80 - 100 fl [facility] MCH 35.3(H) 27.0 - 31.0 pg [facility] MCHC 32.7 30.0 - 36.0 g/dL [facility] RDW 15.3(H) 11.5 - 14.5 % [facility] Hemoglobin 10.3(L) 14.0 - 18.0 g/dL [facility] Hemoglobin x 3 30.9(L) 42.0 - 54.0 % [facility] Platelets 156 130 - 400 1000/mcL [facility] 06/21/2023 06/22/2023 7:4 1 AM CDT Narrative [facility] - 06/22/2023 Unless otherwise specified, test(s) performed at: [facility], [address] [place] [address], [place] [address] SWORD SWALLOWER: Alhaji Noguera M.D., Ph.D For any questions, please call customer service at FREQUENCY:MONTHLY Resulting Agency Comment Specimen source: Blood Ernie Pompa MD LAB BLOOD ORDERABLES Performing Organization Address City/[facility]/ZIP Co de Phone Number [facility] See order comments or contact performing lab Unknown, [place] * IMMUNO CHEMISTRY (06/21/2023) Hep B Surface Ag Negative Negative [facility] 06/21/2023 06/22/2023 5:5 0 AM CDT Narrative [facility] - 06/22/2023 Unless otherwise specified, test(s) performed at: [facility], [address] [place] [address], [place] [address] SWORD SWALLOWER: Alhaji Noguera M.D., Ph.D For any questions, please call customer service at FREQUENCY:MONTHLY Resulting Agency Comment Specimen source: Plasma Ernie Pompa MD LAB BLOOD ORDERABLES Performing Organization Address City/[facility] Co de Phone Number [facility] See order comments or contact performing lab Unknown, [place] * POST CHEMISTRY (06/21/2023) BUN Post Dialysis 14 6 - 19 mg/dL [facility] 06/21/2023 06/22/2023 5:1 7 AM CDT Narrative [facility] - 06/22/2023 Unless otherwise specified, test(s) performed at: [facility], [address] [place] [address], [place] [address] SWORD SWALLOWER: Alhaji Noguera M.D., Ph.D For any questions, please call customer service at FREQUENCY:MONTHLY Resulting Agency Comment Specimen source: Plasma Ernie Pompa MD LAB BLOOD ORDERABLES [facility] See order comments or contact performing lab Unknown, [place] documented in this encounter Visit Diagnoses Not on filedocumented in this encounter
--- OUTSIDE RECORDS SUMMARY | 2023-07-04 14:38 | XMS_ITS | Encounter Summary ---
Author Name Unknown Organization [facility] Address [address] [place] [address] Care Team Providers Care Orthotist Prosthetist Name Role Phone Unavailable Primary Care Provider Unavailabl e Encounter Details Date Type Department Care Team Description 04/10/2023 Treatment [facility] [place] [address] [facility] [facility] [address] [place] [address] Ernie Pompa MD [address] [place] [address] Social History Tobacco Use Types Packs/Day Years Used Date Smoking Tobacco: Unknown Comments:Smoking History Inf o:Patient not screened Sex and Gender Information Value Date Recorded Sex Assigned at Not on file Gender Identity Not on file Sexual Orientation Not on file documented as of this encounter Miscellaneous Notes * Dialysis Note - Ernie Pompa MD - 04/10/2023 12:08 PM CST Date: Apr 10, 2023 Patient Name: Shaun Ocampo : 1945 Chart #: [id number] Sex: M This patient was personally seen for a complete visit as part of routine monthly dialysis care. A review of the dialysis treatment, blood pressure, estimated dry weight and recent lab values was made. These were discussed with the patient and staff as necessary. Treatment Data for 04/10/2023 started at:8:25 AM Dialyzer: 180NRe Optiflux Na: 138 mEq/L Bicarb: 30 mEq/L Dialysate: 2.0 K, 2.5 Ca, 1.0 Mg, 100 Dextrose (G2251) Dialysate/Machine Temp (prescribed): 37 C Dialysate/Machine Temp (actual): 37.3 C BFR (prescribed): 450 BFR (actual): 400 Prescribed time: 04:00 EDW: 96 kg Access Type: Active (In Use):AVFistula-Standard/Left Upper Arm Pre Dialysis Vitals (for 04/10/2023 8:14 AM ) Pre BP (sit): 155/55 Pre Wt: 99.5 kg Temp: 97.7 F Post Dialysis Vitals (for 04/07/2023 12:27 PM ) Post BP (sit): 122/59 Post Wt: 95.7 kg Current Dialysis Vitals (for 04/10/2023 12:04 PM ) BP (sit): 130/60 AP(-) / SKID STRAPPER: 188/151 Pulse: 72 Chairside data as of 04/10/2023 12:04 PM Last 3 Treatments 04/07/2023 04/05/2023 04/03/2023 EDW (kg) 96 96 96 Weight Pre (kg) 99.6 100.5 100.9 Weight Post (kg) 95.7 96.5 97 Dialytic Weight Loss (kg) -3.9 -4 -3.9 EDW Deviation (kg) -0.3 0.5 1 BP Sit Pre 157/58 128/74 143/70 BP Sit Post 122/59 116/56 129/62 UF Rate (mL/kg/hr) 10 10 10 Prescribed BFR 450 450 450 Average Delivered BFR 450 450 450 Prescribed Treatment Time 04:00 04:00 04:00 Actual Treatment Time 04:01 04:01 04:00 Last 3 Values 03/24/2023 02/20/2023 01/27/2023 Access Flow 1136 1220 1051 Treatment Medication Orders Medication Sig Start Date End Date Doxercalciferol (Hectorol) 3 mcg IVP 3X Week 02/27/2023 02/23/2024 Etelcalcetide (Parsabiv) 10 mg IVP 3X Week Post Dialysis 11/07/2022 11/08/2023 Heparin Sodium (Porcine) 1,000 Units/mL Systemic 3000 units IVP Every Treatment 11/07/2022 11/06/2023 Mircera 75 mcg IVP Every 4 weeks During Dialysis 03/15/2023 03/13/2024 TELEGRAPH OFFICE ROUTE AIDE: Ernie Pompa MD LOCATION: [phone] SCHEDULE: M-W-F 2nd Shift EDW: kg. DIALYZER: HD DURATION: NEEDLE SIZE: ANTICOAG: BATH: QB: ml/min QD: ml/min Subjective Tolerating dialysis well. He had an extra treatment earlier in month at [place], since then IDWG's improved and has been getting to dry weight more conistently. Has chronic cough. No new symptoms. Small open spot on foot that he is bandaging. Advanced Practitioner Subjective MACHINE TAPER 03/24/2023: Spoke with patient on dialysis. Denies SOB, chest pain, or dizziness. Noted to have a cough; no fever. Has not been leaving above EDW. High fluid gains. Agrees to extra run at [facility] Monday or Monday. CN to coordinate. AVF functional; no reported issues. BP stable. Areas on legs i mproved. Continue to challenge EDW. MACHINE TAPER 03/06/2023: Patient seen on dialysis. Denies SOB, chest pain, or dizziness. Has not been gettingto EDW. Continues to have higher fluid gains. No other concerns with dialysis. AVF functional; no reported issues. BP stable. Continue to challenge EDW. Review of Systems None reported. Problem List [...] Exam Respiratory - Clear to auscultation bilaterally. has cough Cardiovascular - Regular rate. Regular rhythm. Murmur heard. Edema - Trace edema. improved Access - AVF good t/b, non-aneurysmal L foot on top of large toe he has small ulceration that is clean based and without erythema or drainage Medication List Medication Sig Start Date albuterol sulfate 2.5 mg/3 mL (0.083 %) solution for nebulization Inhale 3 ml as directed three times a day as needed allopurinol 100 mg tablet Take 1 tablet by mouth once a day as directed aspirin 81 mg tablet,chewable Take 1 tablet by mouth once a day 01/17/2022 atorvastatin 40 mg tablet Take 1 tablet once a day 01/17/2022 cholecalciferol (vitamin D3) 50 mcg (2,000 unit) tablet,chewable Take 1 tablet by mouth once a day ipratropium-albuterol 0.5 mg-3 mg(2.5 mg base)/3 mL solution for nebulization Inhale 3 ml as directed every six hours as needed lidocaine-prilocaine 2.5-2.5% cream Apply 1 a small amount to affected area three times a week as directed. apply 30-60 min prior to HD 12/14/2022 metoprolol succinate 25 mg tablet extended release 24 hr Take 1/2 tablet by mouth once a day midodrine 10 mg tablet Take 1 tablet by mouth as directed. take 10 mg pre HD and 10 mg Mid-HD on dialysis days 01/17/2022 Plavix (clopidogrel) 75 mg tablet Take 1 tablet by mouth once a day 01/17/2022 Protonix (pantoprazole) 40 mg tablet,delayed release (DR/EC) Take 1 tablet by mouth every morning one hour before meals sevelamer carbonate 800 mg tablet Take 1 tablet by mouth three times a day with meals. Take 1 tablet with snacks as needed Triphrocaps (b complex with c 20-folic acid) 1 mg capsule Take 1 capsule by mouth once a day Allergy List Allergen Reaction Reaction Severity Onset Date lisinopril Cough Medications reviewed and no changes were made. Treatment and Adequacy Assessment BUN mg/dL 79 (03/22/23) 70 (02/22/23) 52 (01/18/23) 61 (12/21/22) 63 (11/23/22) UREA NITROGEN (MG/DL) IN SER/PLAS - POST DIALYSIS mg/dL 15 (03/22/23) 14 (02/22/23) 12 (01/18/23) 14 (12/21/22) 14 (11/23/22) URR % 81 (03/22/23) 80 (02/22/23) 77 (01/18/23) 77 (12/21/22) 78 (11/23/22) spKt/V Gotch 2.13 (03/22/23) 2.02 (02/22/23) 1.9 (01/18/23) 1.85 (12/21/22) 1.9 (11/23/22) eKdrt/V 1.84 (03/22/23) 1.75 (02/22/23) 1.64 (01/18/23) 1.6 (12/21/22) 1.65 (11/23/22) spKt/V (Daugirdas II) 2.0100 (03/22/23) 1.9300 (02/22/23) 1.7800 (01/18/23) 1.7600 (12/21/22) 1.8100 (11/23/22) Dialysis is adequate. Achieves prescribed time - Yes Achieves prescribed frequency - Yes Continue current prescription. Vascular Access Assessment Type of access: [id number]/[email or web address] Surgeon - Lary GARDNER 08/2021: fistulagram at [facility] with angioplasty of stenosis completed Anemia Assessment HEMOGLOBIN (G/DL) IN BLOOD g/dL 10.1 (04/05/23) 10.3 (03/29/23) 9.9 (03/22/23) 9.6 (03/15/23) 9.9 (03/08/23) PLATELETS 1000/mcL 199 (03/22/23) 126 (02/22/23) 205 (01/18/23) 147 (12/21/22) 182 (11/23/22) FERRITIN ng/mL 931 (12/21/22) 735 (11/07/22) 591 (10/05/22) 764 (07/06/22) TRANSFERRIN SAT% % 29 (03/22/23) 37 (02/22/23) 38 (01/20/23) 28 (12/21/22) 28 (11/23/22) Hemoglobin is at goal. Iron Saturation is at goal. Ferritin is at goal. Will adjust NATALEE and intravenous iron per protocol. Nutritional and Metabolic Assessment ALBUMIN (G/DL) g/dL 3.9 (03/22/23) 3.9 (02/22/23) 4.1 (01/18/23) 3.8 (12/21/22) 3.9 (11/23/22) Sodium mEq/L 132 (03/22/23) 131 (02/22/23) 135 (01/20/23) 137 (12/21/22) 137 (11/23/22) POTASSIUM (MMOL/L) IN SER/PLAS mEq/L 5.3 (04/05/23) 6.4 (03/29/23) 6.0 (03/22/23) 4.2 (02/22/23) 5.3 (01/20/23) BICARBONATE (CO2) mEq/L 22 (03/22/23) 22 (02/22/23) 26 (01/20/23) 23 (12/21/22) 23 (11/23/22) 25 OH VITAMIN D ng/mL 23.2 (01/18/23) 36.4 (11/07/22) 30.1 (10/05/22) Albumin is below goal. Encourage high-biological value protein intake. Potassium is at goal. Encourage low potassium diet. Bicarbonate is at goal. Continue same bicarbonate in dialysate. Bone and Mineral Metabolism Assessment CALCIUM mg/dL 9.5 (03/22/23) 8.8 (02/22/23) 9.1 (02/01/23) 10.1 (01/20/23) 9.7 (12/21/22) CALCIUM (MG/DL) CORRECTED FOR ALBUMIN IN SER/PLAS mg/dL 9.6 (03/22/23) 8.9 (02/22/23) 9.9 (12/21/22) 10.0 (11/23/22) 9.5 (11/07/22) PHOSPHATE (MG/DL) IN SER/PLAS mg/dL 4.6 (03/22/23) 4.8 (02/22/23) 6.6 (01/20/23) 5.4 (12/21/22) 5.0 (11/23/22) CALCIUM PHOSPHORUS PRODUCT, COR 44 (03/22/23) 43 (02/22/23) 53 (12/21/22) 50 (11/23/22) 56 (11/07/22) IPTH pg/mL 578 (03/22/23) 847 (02/22/23) 661 (01/18/23) 419 (12/21/22) 350 (11/07/22) Corrected Calcium is at goal. Phosphorous is at goal. Intact PTH is at goal. Practical Nursing Teacher will adjust binders and vitamin D per protocol and continue to provide dietary education. He has severe nausea and vomiting with Sensipar, can not use anymore Continue Parsabiv Cardiovascular Assessment Blood pressures reviewed and are acceptable. Intradialytic weight gains are too high. Estimated dry weight is appropriate. Continue same cardiovascular medications. Ongoing work on lower fluid gains - currently improved May need extra UF run occasionally (1-2 times per month) He does not want to increase time on dialysis permanently to help with UF Transplant Status: Patient is not a candidate. Weight, co-morbidities, age Resuscitation Status Discussed with patient 05/13/22 who requested Full Code. Stable dialysis, no changes to prescription today High fluid gains improved last couple of weeks! Monitor ulceration of foot, RN will monitor. Podiatry if not healing over course of next couple of weeks Ernie Pompa MD [ Signed And locked electronically On 04/10/2023 at 12:11:30 PM ] Transcribed: Ernie Pompa ( 04/10/2023 ) documented in this encounter Plan of Treatment Not on file documented as of this encounter Visit Diagnoses Not on filedocumented in this encounter
--- OUTSIDE RECORDS SUMMARY | 2023-07-04 14:38 | XMS_ITS | Encounter Summary ---
Author Name Unknown Organization [facility] Address [address] [facility] [address] [place] [address] Care Team Providers Care Roll Forming Supervisor Name Role Phone Unavailable Primary Care Provider Unavailabl e Encounter Details Date Type Department Care Team Description 03/29/2023 Orders Only [facility] [place] [address] [facility] [address] [place] [address] Ernie Pompa MD [address] [place] [address] Social History Tobacco Use Types [...] Procedure Name Priority Date/Time Associated Diagnosis Comments HEMATOLOGY Routine 03/29/2023 CHEMISTRY Routine 03/29/2023 documented in this encounter Results * (ABNORMAL) HEMATOLOGY (03/29/2023) Hemoglobin 10.3(L) 14.0 - 18.0 g/dL [facility] Hemoglobin x 3 30.9(L) 42.0 - 54.0 % [facility] 03/29/2023 03/30/2023 10: 01 AM BOOM MAN Narrative [facility] - 03/30/2023 Unless otherwise specified, test(s) performed at: [facility], [address] [place] [address], [place] [address] EDI MANAGER: Alhaji Noguera M.D., Ph.D For any questions, please call customer service at FREQUENCY:OTHER Resulting Agency Comment Specimen source: Blood Ernie Pompa MD LAB BLOOD ORDERABLES Performing Organization Address City/[facility] Co de Phone Number [facility] * (ABNORMAL) Spectrae Chemistry (03/29/2023) Potassium 6.4(H) 3.5 - 5.1 mEq/L [facility] 03/29/2023 03/30/2023 10: 26 AM BOOM MAN Narrative [facility] - 03/30/2023 Unless otherwise specified, test(s) performed at: [facility], [address] [place] [address], [place] [address] EDI MANAGER: Alhaji Noguera M.D., Ph.D For any questions, please call customer service at FREQUENCY:OTHER Resulting Agency Comment Specimen source: Serum Ernie Pompa MD LAB BLOOD ORDERABLES [facility] documented in this encounter Visit Diagnoses Not on filedocumented in this encounter
--- OUTSIDE RECORDS SUMMARY | 2023-07-04 14:38 | XMS_ITS | Encounter Summary ---
Author Name Unknown Organization [facility] Address [address] [facility] [address] [place] [address] Care Team Providers Care Rag Collector Name Role Phone Unavailable Primary Care Provider Unavailabl e Encounter Details Date Type Department Care Team Description 05/24/2023 Orders Only [facility] [place] [address] [place] [address] Ernie Pompa MD [address] [place] [address] Social History Tobacco Use Types [...] Date/Time Associated Diagnosis Comments HD KINETICS Routine 05/24/2023 POST CHEMISTRY Routine 05/24/2023 IMMUNO CHEMISTRY Routine 05/24/2023 HEMATOLOGY Routine 05/24/2023 CHEMISTRY Routine 05/24/2023 [facility] LAB RESULTS Routine 05/24/2023 documented in this encounter Results * [facility] Lab Results (05/24/2023) eKt/V ([place]all) 1.72 [facility] eNPCR 1.19 [facility] PCR 73.10 [facility] spKt/V (Daugirdas II) 1.97 [facility] spKt/V Gotch 2.07 [facility] eKt/V Gotch 1.79 [facility] nPCR_HD 1.27 [facility] eKdrt/V 1.79 [facility] WSTDKT/V 2.7 [facility] 05/24/2023 05/24/2023 Kameron Ordering Provider LAB BLOOD ORDERABLE S Performing Organization Address [facility] Co de Phone Number [facility] * (ABNORMAL) HD KINETICS (05/24/2023) % Urea Reduction 81(H) 65 - 80 % [facility] 05/24/2023 05/25/2023 5:3 3 PM TIERCE FILLER Narrative [facility] - 05/26/2023 Unless otherwise specified, test(s) performed at: [facility], [address] [place] [address], [place] [address] FINANCIAL AIDS OFFICER: Alhaji Noguera M.D., Ph.D For any questions, please call customer service at FREQUENCY:MONTHLY Resulting Agency Comment Specimen source: Plasma Ernie Pompa MD LAB BLOOD ORDERABLES Performing Organization Address [facility] Co de Phone Number [facility] * (ABNORMAL) Spectrae Chemistry (05/24/2023) BUN 62(H) 6 - 19 mg/dL [facility] Creatinine 5.98(H) 0.60 - 1.30 mg/dL [facility] BUN/Creatinine Ratio 10.4 10.0 - 20.0 [facility] Sodium 132(L) 136 - 145 mEq/L [facility] Potassium 5.1 3.5 - 5.1 mEq/L [facility] Chloride 101 96 - 108 mEq/L [facility] Bicarbonate (CO2) 20 20 - 31 mEq/L [facility] Calcium 9.8 8.7 - 10.4 mg/dL [facility] Comment: Please note change in reference range. Corrected Calcium 9.6 8.7 - 10.4 mg/dL [facility] Comment: Corrected Calcium is not equivalent to measured Ionized Calcium. Phosphorus 3.4 2.6 - 4.5 mg/dL [facility] Calcium Phosphorus Product 33 0 - 54 [facility] Calcium Phosporus Product, Cor 33 0 - 54 [facility] Total Protein 7.4 6.0 - 8.5 g/dL [facility] Albumin 4.2 3.5 - 5.2 g/dL [facility] Globulin, Total 3.2 2.0 - 4.0 g/dL [facility] A/G Ratio 1.3 1.0 - 2.0 [facility] Iron 101 45 - 160 mcg/dL [facility] UIBC 116(L) 155 - 355 mcg/dL [facility] TIBC 217 185 - 515 mcg/dL [facility] Iron Saturation (TSat) 47 20 - 55 % [facility] 05/24/2023 05/26/2023 2:5 3 AM TIERCE FILLER Narrative [facility] - 05/26/2023 Unless otherwise specified, test(s) performed at: [facility], [address] [place] [address], [place] [address] FINANCIAL AIDS OFFICER: Alhaji Noguera M.D., Ph.D For any questions, please call customer service at FREQUENCY:MONTHLY Resulting Agency Comment Specimen source: Serum Ernie Pompa MD LAB BLOOD ORDERABLES [facility] * (ABNORMAL) HEMATOLOGY (05/24/2023) WBC 7.94 4.80 - 10.80 1000/mcL [facility] RBC 2.96(L) 4.70 - 6.10 mill/mcL [facility] Hematocrit 32.4(L) 42.0 - 52.0 % [facility] MCV 110(H) 80 - 100 fl [facility] MCH 34.3(H) 27.0 - 31.0 pg [facility] MCHC 31.3 30.0 - 36.0 g/dL [facility] RDW 13.8 11.5 - 14.5 % [facility] Hemoglobin 10.1(L) 14.0 - 18.0 g/dL [facility] Hemoglobin x 3 30.3(L) 42.0 - 54.0 % [facility] Platelets 166 130 - 400 1000/mcL [facility] 05/24/2023 05/26/2023 2:3 4 AM TIERCE FILLER Narrative [facility] - 05/26/2023 Unless otherwise specified, test(s) performed at: [facility], [address] [place] [address], [place] [address] FINANCIAL AIDS OFFICER: Alhaji Noguera M.D., Ph.D For any questions, please call customer service at FREQUENCY:MONTHLY Resulting Agency Comment Specimen source: Blood Ernie Pompa MD LAB BLOOD ORDERABLES [facility] * POST CHEMISTRY (05/24/2023) BUN Post Dialysis 12 6 - 19 mg/dL [facility] 05/24/2023 05/25/2023 5:3 3 PM TIERCE FILLER Narrative [facility] - 05/25/2023 Unless otherwise specified, test(s) performed at: [facility] [employer], [address] [place] [address], [place] [address] FINANCIAL AIDS OFFICER: Alhaji Noguera M.D., Ph.D For any questions, please call customer service at FREQUENCY:MONTHLY Resulting Agency Comment Specimen source: Plasma Ernie Pompa MD LAB BLOOD ORDERABLES [facility] * IMMUNO CHEMISTRY (05/24/2023) Hep B Surface Ag Negative Negative [facility] 05/24/2023 05/25/2023 3:5 2 PM TIERCE FILLER Narrative [facility] - 05/25/2023 Unless otherwise specified, test(s) performed at: [facility] [employer], [address] [place] [address], [place] [address] FINANCIAL AIDS OFFICER: Alhaji Noguera M.D., Ph.D For any questions, please call customer service at FREQUENCY:MONTHLY Resulting Agency Comment Specimen source: Plasma Ernie Pompa MD LAB BLOOD ORDERABLES [facility] documented in this encounter Visit Diagnoses Not on filedocumented in this encounter
--- OUTSIDE RECORDS SUMMARY | 2023-07-04 14:38 | XMS_ITS | Encounter Summary ---
Author Name Unknown Organization [facility] Address [address] [facility] [address] [place] [address] Care Team Providers Care Resistance Brazer Name Role Phone Unavailable Primary Care Provider Unavailabl e Encounter Details Date Type Department Care Team Description 06/14/2023 Orders Only [facility] [place] [address] [facility] [address] [place] [address] Ernie Pompa MD [address] [place] [address] Social History Tobacco Use Types [...] Priority Date/Time Associated Diagnosis Comments HEMATOLOGY Routine 06/14/2023 documented in this encounter Results * (ABNORMAL) HEMATOLOGY (06/14/2023) Hemoglobin 10.4(L) 14.0 - 18.0 g/dL [facility] Hemoglobin x 3 31.2(L) 42.0 - 54.0 % [facility] 06/14/2023 06/15/2023 7:3 0 AM CDT Narrative [facility] - 06/15/2023 Unless otherwise specified, test(s) performed at: [employer] [employer], [address] [place] [address], [place] [address] MOTH EXTERMINATOR: Alhaji Noguera M.D., Ph.D For any questions, please call customer service at FREQUENCY:OTHER Resulting Agency Comment Specimen source: Blood Ernie Pompa MD LAB BLOOD ORDERABLES [facility] documented in this encounter Visit Diagnoses Not on filedocumented in this encounter
--- OUTSIDE RECORDS SUMMARY | 2023-07-04 14:38 | XMS_ITS | Encounter Summary ---
Author Name Unknown Organization [facility] [place] Address [address] [facility] [address] [facility] [address] [place] [address] Care Team Providers Care Children Teacher Name Role Phone Unavailable Primary Care Provider Unavailabl e Encounter Details Date Type Department Care Team Description 05/10/2023 Orders Only [facility] [place] [address] [facility] [address] [place] [address] Ernie Pompa MD [address] [place] [address] Social History Tobacco Use Types [...] Priority Date/Time Associated Diagnosis Comments HEMATOLOGY Routine 05/10/2023 documented in this encounter Results * (ABNORMAL) HEMATOLOGY (05/10/2023) Hemoglobin 9.8(L) 14.0 - 18.0 g/dL [facility] Hemoglobin x 3 29.4(L) 42.0 - 54.0 % [facility] 05/10/2023 05/11/2023 5:0 2 AM PROFESSOR OF GEOGRAPHY Narrative [facility] - 05/11/2023 Unless otherwise specified, test(s) performed at: [facility], [address] [place] [address], [place] [address] BRUSH STAINER: Alhaji Noguera M.D., Ph.D For any questions, please call customer service at FREQUENCY:OTHER Resulting Agency Comment Specimen source: Blood Ernie Pompa MD LAB BLOOD ORDERABLES Performing Organization Address City/State/[facility] Co de Phone Number [facility] documented in this encounter Visit Diagnoses Not on filedocumented in this encounter
--- OUTSIDE RECORDS SUMMARY | 2023-07-04 14:38 | XMS_ITS | Encounter Summary ---
Author Name Unknown Organization [facility] [place] Address [address] [facility] [address] [facility] [address] [place] [address] Care Team Providers Care Data Support Specialist Name Role Phone Unavailable Primary Care Provider Unavailabl e Encounter Details Date Type Department Care Team Description 05/17/2023 Orders Only [facility] [place] [address] [facility] [address] [place] [address] Ernie Pompa MD [address] [place] [address] Social History Tobacco Use Types [...] Priority Date/Time Associated Diagnosis Comments HEMATOLOGY Routine 05/17/2023 documented in this encounter Results * (ABNORMAL) HEMATOLOGY (05/17/2023) Hemoglobin 9.9(L) 14.0 - 18.0 g/dL [facility] Hemoglobin x 3 29.7(L) 42.0 - 54.0 % [facility] 05/17/2023 05/18/2023 3:0 2 AM SLIP CASTER Narrative [facility] - 05/18/2023 Unless otherwise specified, test(s) performed at: [facility], [address] [place] [address], [place] [address] CUPOLA MELTER HELPER: Alhaji Noguera M.D., Ph.D For any questions, please call customer service at FREQUENCY:OTHER Resulting Agency Comment Specimen source: Blood Ernie Pompa MD LAB BLOOD ORDERABLES Performing Organization Address City/State/[facility] Co de Phone Number [facility] documented in this encounter Visit Diagnoses Not on filedocumented in this encounter
--- OUTSIDE RECORDS SUMMARY | 2023-07-04 14:38 | XMS_ITS | Encounter Summary ---
Author Name Unknown Organization [facility] [place] [place] Address [address] [facility] [address] [facility] [address] [place] [address] Care Team Providers Care Car Body Inspector Name Role Phone Unavailable Primary Care Provider Unavailabl e Encounter Details Date Type Department Care Team Description 05/03/2023 Orders Only [facility] [place] [address] [facility] [address] [place] [address] Ernie Pompa MD [address] [place] [address] Social History Tobacco Use Types [...] Priority Date/Time Associated Diagnosis Comments HEMATOLOGY Routine 05/03/2023 documented in this encounter Results * (ABNORMAL) HEMATOLOGY (05/03/2023) Hemoglobin 10.3(L) 14.0 - 18.0 g/dL [facility] Hemoglobin x 3 30.9(L) 42.0 - 54.0 % [facility] 05/03/2023 05/04/2023 12: 38 PM PATTERN CUTTER Narrative [facility] - 05/04/2023 Unless otherwise specified, test(s) performed at: [facility], [address] [place] [address], [place] [address] NURSING HOME DIRECTOR: Alhaji Noguera M.D., Ph.D For any questions, please call customer service at FREQUENCY:OTHER Resulting Agency Comment Specimen source: Blood Ernie Pompa MD LAB BLOOD ORDERABLES [facility] documented in this encounter Visit Diagnoses Not on filedocumented in this encounter
--- OUTSIDE RECORDS SUMMARY | 2023-07-04 14:38 | XMS_ITS | Encounter Summary ---
Author Name Unknown Organization [facility] [place] Address [address] [facility] [address] [place] [address] Care Team Providers Care Greenhouse Specialist Name Role Phone Unavailable Primary Care Provider Unavailabl e Encounter Details Date Type Department Care Team Description 06/07/2023 Orders Only [facility] [place] [address] [facility] [address] [place] [address] Ernie Pompa MD [address] [place] [address] Social History Tobacco Use Types [...] Priority Date/Time Associated Diagnosis Comments HEMATOLOGY Routine 06/07/2023 documented in this encounter Results * (ABNORMAL) HEMATOLOGY (06/07/2023) Hemoglobin 9.8(L) 14.0 - 18.0 g/dL [facility] Hemoglobin x 3 29.4(L) 42.0 - 54.0 % [facility] 06/07/2023 06/08/2023 4:0 4 AM CDT Narrative [facility] - 06/08/2023 Unless otherwise specified, test(s) performed at: [facility], [address] [place] [address], [place] [address] PRESIDENT OF [place]: Alhaji Noguera M.D., Ph.D For any questions, please call customer service at FREQUENCY:OTHER Resulting Agency Comment Specimen source: Blood Ernie Pompa MD LAB BLOOD ORDERABLES [facility] documented in this encounter Visit Diagnoses Not on filedocumented in this encounter
--- OUTSIDE RECORDS SUMMARY | 2023-07-04 14:38 | XMS_ITS | Encounter Summary ---
Author Name Unknown Organization [facility] [place] Address [address] [place] [address] Care Team Providers Care Matchbook Assembler Name Role Phone Unavailable Primary Care Provider Unavailabl e Encounter Details Date Type Department Care Team Description 05/15/2023 Treatment [facility] [place] [address] [place] [address] Ernie Pompa MD [address] [place] [address] Social History Tobacco Use Types Packs/Day Years Used Date Smoking Tobacco: Unknown Comments:Smoking History Inf o:Patient not screened Sex and Gender Information Value Date Recorded Sex Assigned at Not on file Gender Identity Not on file Sexual Orientation Not on file documented as of this encounter Miscellaneous Notes * Dialysis Note - Ernie Pompa MD - 05/15/2023 12:25 PM CST Date: May 15, 2023 Patient Name: Shaun Ocampo : 1945 Chart #: [id number] Sex: M This patient was personally seen for a complete visit as part of routine monthly dialysis care. A review of the dialysis treatment, blood pressure, estimated dry weight and recent lab values was made. These were discussed with the patient and staff as necessary. Treatment Data for 05/15/2023 started at:8:21 AM Dialyzer: 180NRe Optiflux Na: 138 mEq/L Bicarb: 30 mEq/L Dialysate: 2.0 K, 2.5 Ca, 1.0 Mg, 100 Dextrose (G2251) Dialysate/Machine Temp (prescribed): 37 C Dialysate/Machine Temp (actual): 37.2 C BFR (prescribed): 450 BFR (actual): 0 Prescribed time: 04:00 EDW: 95.5 kg Access Type: Active (In Use):AVFistula-Standard/Left Upper Arm Pre Dialysis Vitals (for 05/15/2023 8:12 AM ) Pre BP (sit): 135/65 Pre Wt: 101 kg Temp: 96.4 F Post Dialysis Vitals (for 05/12/2023 12:24 PM ) Post BP (sit): 125/61 Post Wt: 97.3 kg Current Dialysis Vitals (for 05/15/2023 12:22 PM ) BP (sit): 116/56 AP(-) / DISTRIBUTOR ADVERTISING MATERIAL: 5/2 Pulse: 79 Chairside data as of 05/15/2023 12:22 PM Last 3 Treatments 05/12/2023 05/10/2023 05/08/2023 EDW (kg) 95.5 95.5 95.5 Weight Pre (kg) 101.7 102.5 101.5 Weight Post (kg) 97.3 98.7 98.9 Dialytic Weight Loss (kg) -4.4 -3.8 -2.6 EDW Deviation (kg) 1.8 3.2 3.4 BP Sit Pre 124/54 138/52 138/59 BP Sit Post 125/61 128/56 146/54 UF Rate (mL/kg/hr) 12 10 7 Prescribed BFR 450 450 450 Average Delivered BFR 450 450 460 Prescribed Treatment Time 04:00 04:00 04:00 Actual Treatment Time 04:00 04:01 04:00 Last 3 Values 04/24/2023 03/24/2023 02/20/2023 Access Flow 1258 1136 1220 Treatment Medication Orders Medication Sig Start Date End Date Doxercalciferol (Hectorol) 3 mcg IVP 3X Week 02/27/2023 02/23/2024 Etelcalcetide (Parsabiv) 10 mg IVP 3X Week Post Dialysis 11/07/2022 11/08/2023 Heparin Sodium (Porcine) 1,000 Units/mL Systemic 3000 units IVP Every Treatment 11/07/2022 11/06/2023 Mircera 75 mcg IVP Every 4 weeks During Dialysis 03/15/2023 03/13/2024 TREE SURGEON HELPER: Ernie Pompa MD LOCATION: [place] [phone] SCHEDULE: -- 1st Shift EDW: kg. DIALYZER: HD DURATION: NEEDLE SIZE: ANTICOAG: BATH: QB: ml/min QD: ml/min Subjective Tolerating dialysis well. He is doing really well beside ongoing issues with high fluid gains. he did well today with 3.5L (good for him) but will leave a little above dry weight still today and may need extra UF run soon if can't get back to EDW. He otherwise feels well, has a new Tractor that he was riding this weekend, appetite is stable. He denies new symptoms or concerns. Advanced Practitioner Subjective EPIC ANALYST 04/21/2023: Patient seen on dialysis. Continues to have higher fluid gains. He does have an occasional cough. Denies SOB, chest pain, or dizziness. Hopeful he can get to EDW this week. Offered extrarun but wants to see how things go. Has appt on Monday, so that would not work. BP stable. Continue to challenge EDW. EPIC ANALYST 03/24/2023: Spoke with patient on dialysis. Denies SOB, chest pain, or dizziness. Noted to have a cough; no fever. Has not been leaving above EDW. High fluid gains. Agrees to extra run at [place] Monday or Monday. CN to coordinate. AVF functional; no reported issues. BP stable. Areas on legs i mproved. Continue to challenge EDW. Review of Systems [...] Edema - Trace edema. Access - AVF good t/b, non-aneurysmal Medication List Medication Sig Start Date albuterol [...] Treatment and Adequacy Assessment BUN mg/dL 58 (04/26/23) 79 (03/22/23) 70 (02/22/23) 52 (01/18/23) 61 (12/21/22) UREA NITROGEN (MG/DL) IN SER/PLAS - POST DIALYSIS mg/dL 11 (04/26/23) 15 (03/22/23) 14 (02/22/23) 12 (01/18/23) 14 (12/21/22) URR % 81 (04/26/23) 81 (03/22/23) 80 (02/22/23) 77 (01/18/23) 77 (12/21/22) spKt/V Gotch 2.11 (04/26/23) 2.13 (03/22/23) 2.02 (02/22/23) 1.9 (01/18/23) 1.85 (12/21/22) eKdrt/V 1.83 (04/26/23) 1.84 (03/22/23) 1.75 (02/22/23) 1.64 (01/18/23) 1.6 (12/21/22) spKt/V (Daugirdas II) 1.9900 (04/26/23) 2.0100 (03/22/23) 1.9300 (02/22/23) 1.7800 (01/18/23) 1.7600 (12/21/22) Dialysis is adequate. Achieves prescribed time - Yes Achieves prescribed frequency - Yes Continue current prescription. Vascular Access Assessment Type of access: [id number]/2019 Surgeon - Lary GARDNER 08/2021: fistulagram at [facility] with angioplasty of stenosis completed Anemia Assessment HEMOGLOBIN (G/DL) IN BLOOD g/dL 9.8 (05/10/23) 10.3 (05/03/23) 10.2 (04/26/23) 9.7 (04/19/23) 10.4 (04/12/23) PLATELETS 1000/mcL 167 (04/26/23) 199 (03/22/23) 126 (02/22/23) 205 (01/18/23) 147 (12/21/22) FERRITIN ng/mL 1260 (04/28/23) 931 (12/21/22) 735 (11/07/22) 591 (10/05/22) 764 (07/06/22) TRANSFERRIN SAT% % 42 (04/28/23) 29 (03/22/23) 37 (02/22/23) 38 (01/20/23) 28 (12/21/22) Hemoglobin is below goal. Iron Saturation is at goal. Ferritin is at goal. Will adjust NATALEE and intravenous iron per protocol. Nutritional and Metabolic Assessment ALBUMIN (G/DL) g/dL 3.8 (04/26/23) 3.9 (03/22/23) 3.9 (02/22/23) 4.1 (01/18/23) 3.8 (12/21/22) Sodium mEq/L 133 (04/28/23) 132 (03/22/23) 131 (02/22/23) 135 (01/20/23) 137 (12/21/22) POTASSIUM (MMOL/L) IN SER/PLAS mEq/L 5.5 (04/28/23) 5.3 (04/05/23) 6.4 (03/29/23) 6.0 (03/22/23) 4.2 (02/22/23) BICARBONATE (CO2) mEq/L 23 (04/28/23) 22 (03/22/23) 22 (02/22/23) 26 (01/20/23) 23 (12/21/22) 25 OH VITAMIN D ng/mL 23.2 (01/18/23) 36.4 (11/07/22) 30.1 (10/05/22) Albumin is below goal. Encourage high-biological value protein intake. Potassium is at goal. Encourage low potassium diet. Bicarbonate is at goal. Continue same bicarbonate in dialysate. Bone and Mineral Metabolism Assessment CALCIUM mg/dL 9.9 (04/28/23) 9.5 (03/22/23) 8.8 (02/22/23) 9.1 (02/01/23) 10.1 (01/20/23) CALCIUM (MG/DL) CORRECTED FOR ALBUMIN IN SER/PLAS mg/dL 9.6 (03/22/23) 8.9 (02/22/23) 9.9 (12/21/22) 10.0 (11/23/22) 9.5 (11/07/22) PHOSPHATE (MG/DL) IN SER/PLAS mg/dL 4.5 (04/28/23) 4.6 (03/22/23) 4.8 (02/22/23) 6.6 (01/20/23) 5.4 (12/21/22) CALCIUM PHOSPHORUS PRODUCT, COR 44 (03/22/23) 43 (02/22/23) 53 (12/21/22) 50 (11/23/22) 56 (11/07/22) IPTH pg/mL 593 (04/26/23) 578 (03/22/23) 847 (02/22/23) 661 (01/18/23) 419 (12/21/22) Corrected Calcium is at goal. Phosphorous is at goal. Intact PTH is at goal. Fire Controlman will adjust binders and vitamin D per [...] Stable dialysis, no changes to prescription today Monitor this week to see if needs extra UF run at [place], hopefully can get to EDW by end of week without Ernie Pompa MD [ Signed And locked electronically On 05/15/2023 at 12:27:54 PM ] Transcribed: Ernie Pompa ( 05/15/2023 ) documented in this encounter Plan of Treatment Not on file documented as of this encounter Visit Diagnoses Not on filedocumented in this encounter
--- OUTSIDE RECORDS SUMMARY | 2023-07-04 14:38 | XMS_ITS | Encounter Summary ---
Author Name Unknown Organization [facility] Address [address] [place] [address] Care Team Providers Care Hand Compositor Name Role Phone Unavailable Primary Care Provider Unavailabl e Encounter Details Date Type Department Care Team Description 06/28/2023 Treatment [facility] [place] [address] [place] [address] Randolph Woodruff, BOAT PERSON-JOB ESTIMATOR [address] [place] [phone] Social History Tobacco Use Types Packs/Day Years Used Date Smoking Tobacco: Unknown Comments:Smoking History Inf o:Patient not screened Sex and Gender Information Value Date Recorded Sex Assigned at Not on file Gender Identity Not on file Sexual Orientation Not on file documented as of this encounter Miscellaneous Notes * Dialysis Note - Randolph Woodruff, BOAT PERSON-JOB ESTIMATOR - 06/28/2023 9:38 AM CDT Date: Jun 28, 2023 Patient Name: Shaun Ocampo : 1945 Chart #: [id number] Sex: M This patient was personally seen for a complete visit as part of routine monthly dialysis care. A review of the dialysis treatment, blood pressure, estimated dry weight and recent lab values was made. These were discussed with the patient and staff as necessary. Treatment Data for 06/28/2023 started at:8:21 AM Dialyzer: 180NRe Optiflux Na: 138 mEq/L Bicarb: 30 mEq/L Dialysate: 2.0 K, 2.5 Ca, 1.0 Mg, 100 Dextrose (G2251) Dialysate/Machine Temp (prescribed): 37 C Dialysate/Machine Temp (actual): 36.2 C BFR (prescribed): 450 BFR (actual): 450 Prescribed time: 04:00 EDW: 95.5 kg Access Type: Active (In Use):AVFistula-Standard/Left Upper Arm Pre Dialysis Vitals (for 06/28/2023 8:11 AM ) Pre BP (sit): 139/63 Pre Wt: 99.4 kg Temp: 97.9 F Post Dialysis Vitals (for 06/26/2023 12:29 PM ) Post BP (sit): 121/40 Post Wt: 96.4 kg Current Dialysis Vitals (for 06/28/2023 9:35 AM ) BP (sit): 127/58 AP(-) / NITRATOR OPERATOR: 212/166 Pulse: 60 Chairside data as of 06/28/2023 9:35 AM Last 3 Treatments 06/26/2023 06/23/2023 06/21/2023 EDW (kg) 95.5 95.5 95.2 Weight Pre (kg) 100.2 99.2 99.1 Weight Post (kg) 96.4 95.6 95.5 Dialytic Weight Loss (kg) -3.8 -3.6 -3.6 EDW Deviation (kg) 0.9 0.1 0.3 BP Sit Pre 158/75 139/70 131/48 BP Sit Post 121/40 118/57 120/47 UF Rate (mL/kg/hr) 10 9 9 Prescribed BFR 450 450 450 Average Delivered BFR 450 430 450 Prescribed Treatment Time 04:00 04:00 04:00 Actual Treatment Time 04:04 04:04 04:02 Last 3 Values 06/19/2023 05/22/2023 04/24/2023 Access Flow > 2000 > 2000 1258 Treatment Medication Orders Medication Sig Start Date End Date Doxercalciferol (Hectorol) 3 mcg IVP 3X Week 02/27/2023 02/23/2024 Etelcalcetide (Parsabiv) 10 mg IVP 3X Week Post Dialysis 11/07/2022 11/08/2023 Heparin Sodium (Porcine) 1,000 Units/mL Systemic 3000 units IVP Every Treatment 11/07/2022 11/06/2023 Mircera 75 mcg IVP Every 4 weeks During Dialysis 03/15/2023 03/13/2024 CITY DIRECTOR: Ernie Pompa MD LOCATION: [phone] SCHEDULE: -- 1st Shift EDW: kg. DIALYZER: HD DURATION: NEEDLE SIZE: ANTICOAG: BATH: QB: ml/min QD: ml/min Subjective Tolerating dialysis well. 06/11: He is doing well and feels quite well the last 2 weeks. A little better with fluid gains and reaching EDW. Has been using stationary cycle at home 1-2 times per day 15-30 min each. No new symptoms. Advanced Practitioner Subjective PREANALYTICS TEAM LEAD 06/28/2023: Spoke with patient on dialysis. Doing well. Denies SOB, chest pain, or dizziness. IDWGs have slightly improved. AVF functional; no reported issues. BP stable. Continue to challenge EDW. PREANALYTICS TEAM LEAD 06/02/2023: Seen on dialysis. Fluid gains have been improved. Achieving EDW. His ongoing cough has subsided. Needs ongoing encouragement to watch gains. No breathing issues. Denies chest pain or cramping. His AVF has been working well. No changes today. PREANALYTICS TEAM LEAD 04/21/2023: Patient seen on dialysis. Continues to have higher fluid gains. He does have an occasional cough. Denies SOB, chest pain, or dizziness. Hopeful he can get to EDW this week. Offered extrarun but wants to see how things go. Has appt on Monday, so that would not work. BP stable. Continue to challenge EDW. Review [...] effort Cardiovascular - Regular rate. Regular rhythm. Murmur heard. Edema - Trace edema. stable Access - AVF good t/b, non-aneurysmal Medication [...] made. Treatment and Adequacy Assessment BUN mg/dL 74 (06/21/23) 62 (05/24/23) 58 (04/26/23) 79 (03/22/23) 70 (02/22/23) UREA NITROGEN (MG/DL) IN SER/PLAS - POST DIALYSIS mg/dL 14 (06/21/23) 12 (05/24/23) 11 (04/26/23) 15 (03/22/23) 14 (02/22/23) URR % 81 (06/21/23) 81 (05/24/23) 81 (04/26/23) 81 (03/22/23) 80 (02/22/23) spKt/V Gotch 2.09 (06/21/23) 2.07 (05/24/23) 2.11 (04/26/23) 2.13 (03/22/23) 2.02 (02/22/23) eKdrt/V 1.81 (06/21/23) 1.79 (05/24/23) 1.83 (04/26/23) 1.84 (03/22/23) 1.75 (02/22/23) spKt/V (Daugirdas II) 1.9900 (06/21/23) 1.9700 (05/24/23) 1.9900 (04/26/23) 2.0100 (03/22/23) 1.9300 (02/22/23) Dialysis is adequate. Achieves prescribed time - Yes Achieves prescribed frequency - Yes Continue current prescription. Vascular Access Assessment Type of access: [id number]/2019 Surgeon - Lary GARDNER 08/2021: fistulagram at [facility] with angioplasty of stenosis completed Anemia Assessment HEMOGLOBIN (G/DL) IN BLOOD g/dL 10.3 (06/21/23) 10.4 (06/14/23) 9.8 (06/07/23) 10.5 (05/31/23) 10.1 (05/24/23) PLATELETS 1000/mcL 156 (06/21/23) 166 (05/24/23) 167 (04/26/23) 199 (03/22/23) 126 (02/22/23) FERRITIN ng/mL 1260 (04/28/23) 931 (12/21/22) 735 (11/07/22) 591 (10/05/22) 764 (07/06/22) TRANSFERRIN SAT% % 36 (06/21/23) 47 (05/24/23) 42 (04/28/23) 29 (03/22/23) 37 (02/22/23) Hemoglobin is at goal. Iron Saturation is at goal. Ferritin is at goal. Will adjust NATALEE and intravenous iron per protocol. Nutritional and Metabolic Assessment ALBUMIN (G/DL) g/dL 4.0 (06/21/23) 4.2 (05/24/23) 3.8 (04/26/23) 3.9 (03/22/23) 3.9 (02/22/23) Sodium mEq/L 132 (06/21/23) 132 (05/24/23) 133 (04/28/23) 132 (03/22/23) 131 (02/22/23) POTASSIUM (MMOL/L) IN SER/PLAS mEq/L 5.4 (06/21/23) 5.1 (05/24/23) 5.5 (04/28/23) 5.3 (04/05/23) 6.4 (03/29/23) BICARBONATE (CO2) mEq/L 22 (06/21/23) 20 (05/24/23) 23 (04/28/23) 22 (03/22/23) 22 (02/22/23) 25 OH VITAMIN D ng/mL 23.2 (01/18/23) 36.4 (11/07/22) 30.1 (10/05/22) Albumin is at goal. Encourage high-biological value protein intake. Potassium is at goal. Encourage low potassium diet. Bicarbonate is at goal. Continue same bicarbonate in dialysate. Bone and Mineral Metabolism Assessment CALCIUM mg/dL 9.7 (06/21/23) 10.0 (05/31/23) 9.8 (05/24/23) 9.9 (04/28/23) 9.5 (03/22/23) CALCIUM (MG/DL) CORRECTED FOR ALBUMIN IN SER/PLAS mg/dL 9.7 (06/21/23) 9.6 (05/24/23) 9.6 (03/22/23) 8.9 (02/22/23) 9.9 (12/21/22) PHOSPHATE (MG/DL) IN SER/PLAS mg/dL 4.3 (06/21/23) 3.4 (05/24/23) 4.5 (04/28/23) 4.6 (03/22/23) 4.8 (02/22/23) CALCIUM PHOSPHORUS PRODUCT, COR 42 (4/3/24) 33 (05/24/23) 44 (03/22/23) 43 (02/22/23) 53 (12/21/22) IPTH pg/mL 567 (05/31/23) 593 (04/26/23) 578 (03/22/23) 847 (02/22/23) 661 (01/18/23) Corrected Calcium is at goal. Phosphorous is at goal. Intact PTH is at goal. Knot Tying Operator will adjust binders and vitamin D [...] Stable dialysis, no changes to prescription today RANDOLPH WOODRUFF NP [ Signed And locked electronically On 06/28/2023 at 09:43:04 AM ] Transcribed: RANDOLPH WOODRUFF ( 06/28/2023 ) documented in this encounter Plan of Treatment Not on file documented as of this encounter Visit Diagnoses Not on filedocumented in this encounter
--- OUTSIDE RECORDS SUMMARY | 2023-07-04 14:38 | XMS_ITS | Encounter Summary ---
Author Name Unknown Organization [facility] [place] Address [address] [facility] [address] [place] [address] Care Team Providers Care Pulp Drier Name Role Phone Unavailable Primary Care Provider Unavailabl e Encounter Details Date Type Department Care Team Description 04/28/2023 Orders Only [facility] [place] [address] [facility] [address] [place] [address] Ernie Pompa MD [address] [place] [address] Social History Tobacco Use Types [...] Procedure Name Priority Date/Time Associated Diagnosis Comments CHEMISTRY Routine 04/28/2023 documented in this encounter Results * (ABNORMAL) [facility] (04/28/2023) Sodium 133(L) 136 - 145 mEq/L [facility] Potassium 5.5(H) 3.5 - 5.1 mEq/L [facility] Chloride 100 96 - 108 mEq/L [facility] Bicarbonate (CO2) 23 20 - 31 mEq/L [facility] Calcium 9.9 8.7 - 10.4 mg/dL [facility] Comment: Please note change in reference range. Phosphorus 4.5 2.6 - 4.5 mg/dL [facility] Calcium Phosphorus Product 45 0 - 54 [facility] Alkaline Phosphatase 146(H) 40 - 129 U/L [facility] Magnesium 1.7 1.6 - 2.6 mg/dL [facility] Comment: Custom Exception Ferritin 1,260(H) 22 - 322 ng/mL [facility] Iron 91 45 - 160 mcg/dL [facility] UIBC 125(L) 155 - 355 mcg/dL [facility] TIBC 216 185 - 515 mcg/dL [facility] Iron Saturation (TSat) 42 20 - 55 % [facility] 04/28/2023 04/29/2023 5:2 2 AM SURVIVAL EQUIPMENT REPAIRER Narrative [facility] - 04/29/2023 Unless otherwise specified, test(s) performed at: [facility], [address] [place] [address], [place] [address] SED MIDDLE SCHOOL TEACHER: Alhaji Noguera M.D., Ph.D For any questions, please call customer service at FREQUENCY:OTHER Resulting Agency Comment Specimen source: Serum Ernie Pompa MD LAB BLOOD ORDERABLES [facility] documented in this encounter Visit Diagnoses Not on filedocumented in this encounter
--- OUTSIDE RECORDS SUMMARY | 2023-07-04 14:38 | XMS_ITS | Encounter Summary ---
Author Name Unknown Organization [facility] [place] Address [address] [facility] [address] [place] [address] Care Team Providers Care Tongue And Groove Machine Setter Name Role Phone Unavailable Primary Care Provider Unavailabl e Encounter Details Date Type Department Care Team Description 06/28/2023 Orders Only [facility] [place] [address] [facility] [address] [place] [address] Ernie Pompa MD [address] [place] [address] Social History Tobacco Use Types [...] Priority Date/Time Associated Diagnosis Comments HEMATOLOGY Routine 06/28/2023 documented in this encounter Results * (ABNORMAL) HEMATOLOGY (06/28/2023) Hemoglobin 10.3(L) 14.0 - 18.0 g/dL [facility] Hemoglobin x 3 30.9(L) 42.0 - 54.0 % [facility] 06/28/2023 06/29/2023 9:2 9 AM CDT Narrative [facility] - 06/29/2023 Unless otherwise specified, test(s) performed at: [facility], [address] [place] [address], [place] [address] WELL LOGGING OPERATOR MUD ANALYSIS: Alhaji Noguera M.D., Ph.D For any questions, please call customer service at FREQUENCY:OTHER Resulting Agency Comment Specimen source: Blood Ernie Pompa MD LAB BLOOD ORDERABLES [facility] See order comments or contact performing lab Unknown, [place] documented in this encounter Visit Diagnoses Not on filedocumented in this encounter
--- OUTSIDE RECORDS SUMMARY | 2023-07-04 14:38 | XMS_ITS | Encounter Summary ---
Author Name Unknown Organization [facility] Address [address] [place] [address] Care Team Providers Care Casting Operator Name Role Phone Unavailable Primary Care Provider Unavailabl e Encounter Details Date Type Department Care Team Description 06/12/2023 Treatment [facility] [place] [address] [place] [address] Ernie Pompa MD [address] [place] [address] Social History Tobacco Use Types Packs/Day Years Used Date Smoking Tobacco: Unknown Comments:Smoking History Inf o:Patient not screened Sex and Gender Information Value Date Recorded Sex Assigned at Not on file Gender Identity Not on file Sexual Orientation Not on file documented as of this encounter Miscellaneous Notes * Dialysis Note - Ernie Pompa MD - 06/12/2023 12:03 PM CDT Date: Jun 12, 2023 Patient Name: Shaun Ocampo : 1945 Chart #: [id number] Sex: M This patient was personally seen for a complete visit as part of routine monthly dialysis care. A review of the dialysis treatment, blood pressure, estimated dry weight and recent lab values was made. These were discussed with the patient and staff as necessary. Treatment Data for 06/12/2023 started at:8:21 AM Dialyzer: 180NRe Optiflux Na: 138 mEq/L Bicarb: 30 mEq/L Dialysate: 2.0 K, 2.5 Ca, 1.0 Mg, 100 Dextrose (G2251) Dialysate/Machine Temp (prescribed): 37 C Dialysate/Machine Temp (actual): 36.7 C BFR (prescribed): 450 BFR (actual): 450 Prescribed time: 04:00 EDW: 95.5 kg Access Type: Active (In Use):AVFistula-Standard/Left Upper Arm Pre Dialysis Vitals (for 06/12/2023 8:11 AM ) Pre BP (sit): 144/53 Pre Wt: 99.9 kg Temp: 97.4 F Post Dialysis Vitals (for 06/09/2023 12:42 PM ) Post BP (sit): 131/57 Post Wt: 95.7 kg Current Dialysis Vitals (for 06/12/2023 11:33 AM ) BP (sit): 115/63 AP(-) / HAND FUR CLEANER: 214/164 Pulse: 54 Chairside data as of 06/12/2023 11:33 AM Last 3 Treatments 06/09/2023 06/07/2023 06/05/2023 EDW (kg) 95.5 95.5 95.5 Weight Pre (kg) 99.4 98.6 100.4 Weight Post (kg) 95.7 95.4 95.6 Dialytic Weight Loss (kg) -3.7 -3.2 -4.8 EDW Deviation (kg) 0.2 -0.1 0.1 BP Sit Pre 140/64 153/63 127/69 BP Sit Post 131/57 133/42 131/62 UF Rate (mL/kg/hr) 10 8 12 Prescribed BFR 450 450 450 Average Delivered BFR 450 450 440 Prescribed Treatment Time 04:00 04:00 04:00 Actual Treatment Time 04:00 04:01 04:04 Last 3 Values 05/22/2023 04/24/2023 03/24/2023 Access Flow > 2000 1258 1136 Treatment Medication Orders Medication Sig Start Date End Date Doxercalciferol (Hectorol) 3 mcg IVP 3X Week 02/27/2023 02/23/2024 Etelcalcetide (Parsabiv) 10 mg IVP 3X Week Post Dialysis 11/07/2022 11/08/2023 Heparin Sodium (Porcine) 1,000 Units/mL Systemic 3000 units IVP Every Treatment 11/07/2022 11/06/2023 Mircera 75 mcg IVP Every 4 weeks During Dialysis 03/15/2023 03/13/2024 FOOD SAFETY OFFICER: Ernie Pompa MD LOCATION: [phone] SCHEDULE: -- 1st Shift EDW: kg. DIALYZER: HD DURATION: NEEDLE SIZE: ANTICOAG: BATH: QB: ml/min QD: ml/min Subjective Tolerating dialysis well. 06/11: He is doing well and feels quite well the last 2 weeks. A little better with fluid gains and reaching EDW. Has been using stationary cycle at home 1-2 times per day 15-30 min each. No new symptoms. Advanced Practitioner Subjective SUPERVISOR AIR CONDITIONING INSTALLER 06/02/2023: Seen on dialysis. Fluid gains have been improved. Achieving EDW. His ongoing cough has subsided. Needs ongoing encouragement to watch gains. No breathing issues. Denies chest pain or cramping. His AVF has been working well. No changes today. SUPERVISOR AIR CONDITIONING INSTALLER 04/21/2023: Patient seen on dialysis. Continues to have higher fluid gains. He does have an occasional cough. Denies SOB, chest pain, or dizziness. Hopeful he can get to EDW this week. Offered extrarun but wants to see how things go. Has appt on Monday, so that would not work. BP stable. Continue to challenge EDW. SUPERVISOR AIR CONDITIONING INSTALLER 03/24/2023: Spoke with patient on dialysis. Denies SOB, chest pain, or dizziness. Noted to have a cough; no fever. Has not been leaving above EDW. High fluid gains. Agrees to extra run at [place] Monday or Monday. CN to coordinate. AVF [...] made. Treatment and Adequacy Assessment BUN mg/dL 62 (05/24/23) 58 (04/26/23) 79 (03/22/23) 70 (02/22/23) 52 (01/18/23) UREA NITROGEN (MG/DL) IN SER/PLAS - POST DIALYSIS mg/dL 12 (05/24/23) 11 (04/26/23) 15 (03/22/23) 14 (02/22/23) 12 (01/18/23) URR % 81 (05/24/23) 81 (04/26/23) 81 (03/22/23) 80 (02/22/23) 77 (01/18/23) spKt/V Gotch 2.07 (05/24/23) 2.11 (04/26/23) 2.13 (03/22/23) 2.02 (02/22/23) 1.9 (01/18/23) eKdrt/V 1.79 (05/24/23) 1.83 (04/26/23) 1.84 (03/22/23) 1.75 (02/22/23) 1.64 (01/18/23) spKt/V (Daugirdas II) 1.9700 (05/24/23) 1.9900 (04/26/23) 2.0100 (03/22/23) 1.9300 (02/22/23) 1.7800 (01/18/23) Dialysis is adequate. Achieves prescribed time - Yes Achieves prescribed frequency - Yes Continue current prescription. Vascular Access Assessment Type of access: [id number]/[email or web address] Surgeon - Lary GARDNER 08/2021: fistulagram at [facility] with angioplasty of stenosis completed Anemia Assessment HEMOGLOBIN (G/DL) IN BLOOD g/dL 9.8 (06/07/23) 10.5 (05/31/23) 10.1 (05/24/23) 9.9 (05/17/23) 9.8 (05/10/23) PLATELETS 1000/mcL 166 (05/24/23) 167 (04/26/23) 199 (03/22/23) 126 (02/22/23) 205 (01/18/23) FERRITIN ng/mL 1260 (04/28/23) 931 (12/21/22) 735 (11/07/22) 591 (10/05/22) 764 (07/06/22) TRANSFERRIN SAT% % 47 (05/24/23) 42 (04/28/23) 29 (03/22/23) 37 (02/22/23) 38 (01/20/23) Hemoglobin is below goal. Iron Saturation is at goal. Ferritin is at goal. Will adjust NATALEE and intravenous iron per protocol. Nutritional and Metabolic Assessment ALBUMIN (G/DL) g/dL 4.2 (05/24/23) 3.8 (04/26/23) 3.9 (03/22/23) 3.9 (02/22/23) 4.1 (01/18/23) Sodium mEq/L 132 (05/24/23) 133 (04/28/23) 132 (03/22/23) 131 (02/22/23) 135 (01/20/23) POTASSIUM (MMOL/L) IN SER/PLAS mEq/L 5.1 (05/24/23) 5.5 (04/28/23) 5.3 (04/05/23) 6.4 (03/29/23) 6.0 (03/22/23) BICARBONATE (CO2) mEq/L 20 (05/24/23) 23 (04/28/23) 22 (03/22/23) 22 (02/22/23) 26 (01/20/23) 25 OH VITAMIN D ng/mL 23.2 (01/18/23) 36.4 (11/07/22) 30.1 (10/05/22) Albumin is at goal. Encourage high-biological value protein intake. Potassium is at goal. Encourage low potassium diet. Bicarbonate is at goal. Continue same bicarbonate in dialysate. Bone and Mineral Metabolism Assessment CALCIUM mg/dL 10.0 (05/31/23) 9.8 (05/24/23) 9.9 (04/28/23) 9.5 (03/22/23) 8.8 (02/22/23) CALCIUM (MG/DL) CORRECTED FOR ALBUMIN IN SER/PLAS mg/dL 9.6 (05/24/23) 9.6 (03/22/23) 8.9 (02/22/23) 9.9 (12/21/22) 10.0 (11/23/22) PHOSPHATE (MG/DL) IN SER/PLAS mg/dL 3.4 (05/24/23) 4.5 (04/28/23) 4.6 (03/22/23) 4.8 (02/22/23) 6.6 (01/20/23) CALCIUM PHOSPHORUS PRODUCT, COR 33 (05/24/23) 44 (03/22/23) 43 (02/22/23) 53 (12/21/22) 50 (11/23/22) IPTH pg/mL 567 (05/31/23) 593 (04/26/23) 578 (03/22/23) 847 (02/22/23) 661 (01/18/23) Corrected Calcium is at goal. Phosphorous is at goal. Intact PTH is at goal. Underground Heavy Equipment Operator will adjust binders and vitamin D [...] Stable dialysis, no changes to prescription today Ernie Pompa MD [ Signed And locked electronically On 06/12/2023 at 12:05:29 PM ] Transcribed: Ernie Pompa ( 06/12/2023 ) documented in this encounter Plan of Treatment Not on file documented as of this encounter Visit Diagnoses Not on filedocumented in this encounter
--- OUTSIDE RECORDS SUMMARY | 2023-07-04 14:38 | XMS_ITS | Encounter Summary ---
Author Name Unknown Organization [facility] Address [address] [place] [address] Care Team Providers Care Office Machine Servicer Apprentice Name Role Phone Unavailable Primary Care Provider Unavailabl e Encounter Details Date Type Department Care Team Description 04/12/2023 Orders Only [facility] [place] [address] [facility] [address] [place] [address] Ernie Pompa MD [address] [place] [address] Social History Tobacco Use Types [...] Priority Date/Time Associated Diagnosis Comments HEMATOLOGY Routine 04/12/2023 documented in this encounter Results * (ABNORMAL) HEMATOLOGY (04/12/2023) Hemoglobin 10.4(L) 14.0 - 18.0 g/dL [facility] Hemoglobin x 3 31.2(L) 42.0 - 54.0 % [facility] 04/12/2023 04/13/2023 8:3 1 PM SILK BRUSHER Narrative [facility] - 04/13/2023 Unless otherwise specified, test(s) performed at: [facility], [address] [place] [address], [place] [address] STONEWORK TRACER: Alhaji Noguera M.D., Ph.D For any questions, please call customer service at FREQUENCY:OTHER Resulting Agency Comment Specimen source: Blood Ernie Pompa MD LAB BLOOD ORDERABLES Performing Organization Address City/State/[facility] Co de Phone Number [facility] documented in this encounter Visit Diagnoses Not on filedocumented in this encounter
--- OUTSIDE RECORDS SUMMARY | 2023-07-04 14:38 | XMS_ITS | Encounter Summary ---
Author Name Unknown Organization [facility] [place] Address [address] [facility] [address] [place] [address] Care Team Providers Care Slide Forming Machine Operator Name Role Phone Unavailable Primary Care Provider Unavailabl e Encounter Details Date Type Department Care Team Description 04/26/2023 Orders Only [facility] [place] [address] [place] [address] Ernie Pompa MD [address] [place] [address] Social History Tobacco Use Types [...] Date/Time Associated Diagnosis Comments HD KINETICS Routine 04/26/2023 POST CHEMISTRY Routine 04/26/2023 IMMUNO CHEMISTRY Routine 04/26/2023 HEMATOLOGY Routine 04/26/2023 CHEMISTRY Routine 04/26/2023 CHEMISTRY Routine 04/26/2023 [facility] LAB RESULTS Routine 04/26/2023 documented in this encounter Results * [facility] Lab Results (04/26/2023) WSTDKT/V 2.7 [facility] spKt/V (Daugirdas II) 1.99 [facility] eKt/V ([place]) 1.74 [facility] nPCR_HD 1.21 [facility] eNPCR 1.14 [facility] spKt/V Gotch 2.11 [facility] PCR 69.10 [facility] eKt/V Gotch 1.83 [facility] eKdrt/V 1.83 [facility] 04/26/2023 04/26/2023 Kameron Ordering Provider LAB BLOOD ORDERABLE S [facility] * IMMUNO CHEMISTRY (04/26/2023) Hep B Surface Ag Negative Negative [facility] 04/26/2023 04/27/2023 6:2 1 PM VP CARE MANAGEMENT Narrative Resulting Agency Comment Specimen source: Plasma Ernie Pompa MD LAB BLOOD ORDERABLES Performing Organization Address [facility] Co de Phone Number [facility] * (ABNORMAL) Spectrae Chemistry (04/26/2023) PTH 593(H) 16 - 80 pg/mL [facility] 04/26/2023 04/27/2023 6:2 1 PM VP CARE MANAGEMENT Narrative [facility] - 04/27/2023 Unless otherwise specified, test(s) performed at: [facility], [address] [place] [address], [place] [address] MARKER MACHINE: Alhaji Noguera M.D., Ph.D For any questions, please call customer service at FREQUENCY:MONTHLY Resulting Agency Comment Specimen source: Plasma Ernie Pompa MD LAB BLOOD ORDERABLES Performing Organization Address City/[facility]/ZIP Co de Phone Number [facility] * (ABNORMAL) HD KINETICS (04/26/2023) % Urea Reduction 81(H) 65 - 80 % [facility] 04/26/2023 04/27/2023 1:3 1 PM VP CARE MANAGEMENT Narrative Resulting Agency Comment Specimen source: Plasma Ernie Pompa MD LAB BLOOD ORDERABLES [facility] * POST CHEMISTRY (04/26/2023) BUN Post Dialysis 11 6 - 19 mg/dL [facility] 04/26/2023 04/27/2023 1:3 1 PM VP CARE MANAGEMENT Narrative [facility] - 04/27/2023 Unless otherwise specified, test(s) performed at: [facility], [address] [place] [address], [place] [address] MARKER MACHINE: Alhaji Noguera M.D., Ph.D For any questions, please call customer service at FREQUENCY:MONTHLY Resulting Agency Comment Specimen source: Plasma Ernie Pompa MD LAB BLOOD ORDERABLES [facility] * (ABNORMAL) HEMATOLOGY (04/26/2023) WBC 9.49 4.80 - 10.80 1000/mcL [facility] RBC 2.77(L) 4.70 - 6.10 mill/mcL [facility] Hematocrit 30.7(L) 42.0 - 52.0 % [facility] MCV 111(H) 80 - 100 fl [facility] MCH 36.8(H) 27.0 - 31.0 pg [facility] MCHC 33.2 30.0 - 36.0 g/dL [facility] RDW 14.9(H) 11.5 - 14.5 % [facility] Hemoglobin 10.2(L) 14.0 - 18.0 g/dL [facility] Hemoglobin x 3 30.6(L) 42.0 - 54.0 % [facility] Platelets 167 130 - 400 1000/mcL [facility] 04/26/2023 04/27/2023 2:1 4 PM VP CARE MANAGEMENT Narrative [facility] - 04/27/2023 Unless otherwise specified, test(s) performed at: [facility], [address] [place] [address], [place] [address] MARKER MACHINE: Alhaji Noguera M.D., Ph.D For any questions, please call customer service at FREQUENCY:MONTHLY Resulting Agency Comment Specimen source: Blood Ernie Pompa MD LAB BLOOD ORDERABLES Performing Organization Address City/[facility]/ZIP Co de Phone Number [facility] * (ABNORMAL) Spectrae Chemistry (04/26/2023) BUN 58(H) 6 - 19 mg/dL [facility] Creatinine 6.24(H) 0.60 - 1.30 mg/dL [facility] BUN/Creatinine Ratio 9.3(L) 10.0 - 20.0 [facility] Total Protein 7.1 6.0 - 8.5 g/dL [facility] Albumin 3.8 3.5 - 5.2 g/dL [facility] Globulin, Total 3.3 2.0 - 4.0 g/dL [facility] A/G Ratio 1.2 1.0 - 2.0 [facility] 04/26/2023 04/27/2023 12: 12 PM VP CARE MANAGEMENT Narrative [facility] - 04/27/2023 Unless otherwise specified, test(s) performed at: [facility], [address] [place] [address], [place] [address] MARKER MACHINE: Alhaji Noguera M.D., Ph.D For any questions, please call customer service at FREQUENCY:MONTHLY Resulting Agency Comment Specimen source: Serum Ernie Pompa MD LAB BLOOD ORDERABLES [facility] documented in this encounter Visit Diagnoses Not on filedocumented in this encounter
--- OUTSIDE RECORDS SUMMARY | 2023-07-04 14:38 | XMS_ITS | Encounter Summary ---
Author Name Unknown Organization [facility] Address [address] [place] [address] Care Team Providers Care Java Swing Developer Name Role Phone Unavailable Primary Care Provider Unavailabl e Encounter Details Date Type Department Care Team Description 04/19/2023 Orders Only [facility] [place] [address] [facility] [address] [place] [address] Ernie Pompa MD [address] [place] [address] Social History Tobacco Use Types [...] Priority Date/Time Associated Diagnosis Comments HEMATOLOGY Routine 04/19/2023 documented in this encounter Results * (ABNORMAL) HEMATOLOGY (04/19/2023) Hemoglobin 9.7(L) 14.0 - 18.0 g/dL [facility] Hemoglobin x 3 29.1(L) 42.0 - 54.0 % [facility] 04/19/2023 04/20/2023 6:4 9 AM FIELD RING ASSEMBLER Narrative [facility] - 04/20/2023 Unless otherwise specified, test(s) performed at: [facility], [address] [place] [address], [place] [address] HYDRODYNAMICS PROFESSOR: Alhaji Noguera M.D., Ph.D For any questions, please call customer service at FREQUENCY:OTHER Resulting Agency Comment Specimen source: Blood Ernie Pompa MD LAB BLOOD ORDERABLES Performing Organization Address City/State/[facility] Co de Phone Number [facility] documented in this encounter Visit Diagnoses Not on filedocumented in this encounter
--- OUTSIDE RECORDS SUMMARY | 2023-07-04 14:38 | XMS_ITS | Encounter Summary ---
Author Name Unknown Organization [facility] [place] Address [address] [place] [address] Care Team Providers Care Water Valve Mechanic Name Role Phone Unavailable Primary Care Provider Unavailabl e Encounter Details Date Type Department Care Team Description 04/21/2023 Treatment [facility] [place] [address] [place] [address] Randolph Woodruff, COATER HAND-PET CARETAKER [address] [place] [address] Social History Tobacco Use Types Packs/Day Years Used Date Smoking Tobacco: Unknown Comments:Smoking History Inf o:Patient not screened Sex and Gender Information Value Date Recorded Sex Assigned at Not on file Gender Identity Not on file Sexual Orientation Not on file documented as of this encounter Miscellaneous Notes * Dialysis Note - Randolph Woodruff APRN-PET CARETAKER - 04/21/2023 10:41 AM PEST CONTROL CHEMICAL TECHNICIAN Date: Apr 21, 2023 Patient Name: Shaun Ocampo : 1945 Chart #: [id number] Sex: M This patient was personally seen for a complete visit as part of routine monthly dialysis care. A review of the dialysis treatment, blood pressure, estimated dry weight and recent lab values was made. These were discussed with the patient and staff as necessary. Treatment Data for 04/21/2023 started at:8:32 AM Dialyzer: 180NRe Optiflux Na: 138 mEq/L Bicarb: 30 mEq/L Dialysate: 2.0 K, 2.5 Ca, 1.0 Mg, 100 Dextrose (G2251) Dialysate/Machine Temp (prescribed): 37 C Dialysate/Machine Temp (actual): 37.4 C BFR (prescribed): 450 BFR (actual): 450 Prescribed time: 04:00 EDW: 95.5 kg Access Type: Active (In Use):AVFistula-Standard/Left Upper Arm Pre Dialysis Vitals (for 04/21/2023 8:18 AM ) Pre BP (sit): 147/51 Pre Wt: 100.7 kg Temp: 97.3 F Post Dialysis Vitals (for 04/19/2023 12:45 PM ) Post BP (sit): 119/43 Post Wt: 97 kg Current Dialysis Vitals (for 04/21/2023 10:33 AM ) BP (sit): 93/52 AP(-) / FOREIGN CAR MECHANIC: 213/182 Pulse: 71 Chairside data as of 04/21/2023 10:33 AM Last 3 Treatments 04/19/2023 04/17/2023 04/14/2023 EDW (kg) 95.5 95.5 95.5 Weight Pre (kg) 101 100.1 98.8 Weight Post (kg) 97 96.2 96.4 Dialytic Weight Loss (kg) -4 -3.9 -2.4 EDW Deviation (kg) 1.5 0.7 0.9 BP Sit Pre 119/61 143/46 139/57 BP Sit Post 119/43 136/51 105/54 UF Rate (mL/kg/hr) 11 10 6 Prescribed BFR 450 450 450 Average Delivered BFR 440 450 440 Prescribed Treatment Time 04:00 04:00 04:00 Actual Treatment Time 03:59 04:00 04:00 Last 3 Values 03/24/2023 02/20/2023 01/27/2023 [...] Every 4 weeks During Dialysis 03/15/2023 03/13/2024 GUSSET STITCHER: Ernie Pompa MD LOCATION: [place] [phone] SCHEDULE: -- 1st Shift EDW: kg. DIALYZER: HD DURATION: NEEDLE SIZE: ANTICOAG: BATH: QB: ml/min QD: ml/min Subjective Tolerating dialysis well. He had an extra treatment earlier in month at [facility], since then IDWG's improved and has been getting to dry weight more conistently. Has chronic cough. No new symptoms. Small open spot on foot that he is bandaging. Advanced Practitioner Subjective SECURITY INFRASTRUCTURE ENGINEER 04/21/2023: Patient seen on dialysis. Continues to have higher fluid gains. He does have an occasional cough. Denies SOB, chest pain, or dizziness. Hopeful he can get to EDW this week. Offered extrarun but wants to see how things go. Has appt on Monday, so that would not work. BP stable. Continue to challenge EDW. SECURITY INFRASTRUCTURE ENGINEER 03/24/2023: Spoke with patient on dialysis. Denies SOB, chest pain, or dizziness. Noted to have a cough; no fever. Has not been leaving above EDW. High fluid gains. Agrees to extra run at [facility] Monday or Monday. CN to coordinate. AVF [...] prescription. Vascular Access Assessment Type of access: [id number] Surgeon - Lary GARDNER 08/2021: fistulagram at [facility] with angioplasty of stenosis completed Anemia Assessment HEMOGLOBIN (G/DL) IN BLOOD g/dL 9.7 (04/19/23) 10.4 (04/12/23) 10.1 (04/05/23) 10.3 (03/29/23) 9.9 (03/22/23) PLATELETS 1000/mcL 199 (03/22/23) 126 (02/22/23) 205 (01/18/23) 147 (12/21/22) 182 (11/23/22) FERRITIN ng/mL 931 (12/21/22) 735 (11/07/22) 591 (10/05/22) 764 (07/06/22) TRANSFERRIN SAT% % 29 (03/22/23) 37 (02/22/23) 38 (01/20/23) 28 (12/21/22) 28 (11/23/22) Hemoglobin is below goal. Iron Saturation is [...] at goal. Intact PTH is at goal. Inspector Clip On Sunglasses will adjust binders and vitamin D per [...] no changes to prescription today High fluid gains; occasional cough. Offered extra run Monitor ulceration of foot, RN will monitor. Podiatry if not healing over course of next couple of weeks RANDOLPH WOODRUFF NP [ Signed And locked electronically On 04/21/2023 at 10:48:30 AM ] Transcribed: RANDOLPH WOODRUFF ( 04/21/2023 ) documented in this encounter Plan of Treatment Not on file documented as of this encounter Visit Diagnoses Not on filedocumented in this encounter
--- OUTSIDE RECORDS SUMMARY | 2023-07-04 14:38 | XMS_ITS | Encounter Summary ---
Author Name Unknown Organization [facility] [place] Address [address] [place] [address] Care Team Providers Care City Alderman Name Role Phone Unavailable Primary Care Provider Unavailabl e Encounter Details Date Type Department Care Team Description 06/02/2023 Treatment [facility] [place] [address] [place] [address] Randolph Woodruff, FORGE OPERATOR-ORACLE SECURITY CONSULTANT [address] [place] [phone] Social History Tobacco Use Types Packs/Day Years Used Date Smoking Tobacco: Unknown Comments:Smoking History Inf o:Patient not screened Sex and Gender Information Value Date Recorded Sex Assigned at Not on file Gender Identity Not on file Sexual Orientation Not on file documented as of this encounter Miscellaneous Notes * Dialysis Note - Randolph Woodruff APRN-ORACLE SECURITY CONSULTANT - 06/02/2023 10:45 AM CDT Date: Jun 02, 2023 Patient Name: Shaun Ocampo : 1945 Chart #: [id number] Sex: M This patient was personally seen for a complete visit as part of routine monthly dialysis care. A review of the dialysis treatment, blood pressure, estimated dry weight and recent lab values was made. These were discussed with the patient and staff as necessary. Treatment Data for 06/02/2023 started at:8:20 AM Dialyzer: 180NRe Optiflux Na: 138 mEq/L Bicarb: 30 mEq/L Dialysate: 2.0 K, 2.5 Ca, 1.0 Mg, 100 Dextrose (G2251) Dialysate/Machine Temp (prescribed): 37 C Dialysate/Machine Temp (actual): 37 C BFR (prescribed): 450 BFR (actual): 450 Prescribed time: 04:00 EDW: 95.5 kg Access Type: Active (In Use):AVFistula-Standard/Left Upper Arm Pre Dialysis Vitals (for 06/02/2023 8:10 AM ) Pre BP (sit): 136/54 Pre Wt: 98.2 kg Temp: 96.3 F Post Dialysis Vitals (for 05/31/2023 12:25 PM ) Post BP (sit): 118/56 Post Wt: 95.4 kg Current Dialysis Vitals (for 06/02/2023 10:33 AM ) BP (sit): 131/59 AP(-) / QUALITY ASSURANCE LAB TECHNICIAN: 218/164 Pulse: 56 Chairside data as of 06/02/2023 10:33 AM Last 3 Treatments 05/31/2023 05/29/2023 05/26/2023 EDW (kg) 95.5 95.5 95.5 Weight Pre (kg) 98.9 98.4 100 Weight Post (kg) 95.4 95.1 96.1 Dialytic Weight Loss (kg) -3.5 -3.3 -3.9 EDW Deviation (kg) -0.1 -0.4 0.6 BP Sit Pre 137/55 120/69 123/65 BP Sit Post 118/56 129/43 101/45 UF Rate (mL/kg/hr) 9 9 10 Prescribed BFR 450 450 450 Average Delivered BFR 450 450 440 Prescribed Treatment Time 04:00 04:00 04:00 Actual Treatment Time 04:00 04:01 04:01 Last 3 Values 05/22/2023 04/24/2023 03/24/2023 Access Flow > 1999 1258 1136 Treatment Medication Orders Medication Sig Start Date End Date Doxercalciferol (Hectorol) 3 mcg IVP 3X Week 02/27/2023 02/23/2024 Etelcalcetide (Parsabiv) 10 mg IVP 3X Week Post Dialysis 11/07/2022 11/08/2023 Heparin Sodium (Porcine) 1,000 Units/mL Systemic 3000 units IVP Every Treatment 11/07/2022 11/06/2023 Mircera 75 mcg IVP Every 4 weeks During Dialysis 03/15/2023 03/13/2024 ONLINE MARKETING STRATEGIST: Ernie Pompa MD LOCATION: [facility] [phone] SCHEDULE: -- 1st Shift EDW: kg. DIALYZER: [...] new symptoms or concerns. Advanced Practitioner Subjective COMPUTER LAB ASSISTANT 06/02/2023: Seen on dialysis. Fluid gains have been improved. Achieving EDW. His ongoing cough has subsided. Needs ongoing encouragement to watch gains. No breathing issues. Denies chest pain or cramping. His AVF has been working well. No changes today. COMPUTER LAB ASSISTANT 04/21/2023: Patient seen on dialysis. Continues to have higher fluid gains. He does have an occasional cough. Denies SOB, chest pain, or dizziness. Hopeful he can get to EDW this week. Offered extrarun but wants to see how things go. Has appt on Monday, so that would not work. BP stable. Continue to challenge EDW. COMPUTER LAB ASSISTANT 03/24/2023: Spoke with patient on dialysis. Denies SOB, chest pain, or dizziness. Noted to have a cough; no fever. Has not been leaving above EDW. High fluid gains. Agrees to extra run at [place] Monday or Monday. CN to coordinate. AVF [...] prescription. Vascular Access Assessment Type of access: [id number] Surgeon - Lary KUMARW 08/2021: fistulagram [place] [facility] with angioplasty of stenosis completed Anemia Assessment HEMOGLOBIN (G/DL) IN BLOOD g/dL 10.5 (05/31/23) 10.1 (05/24/23) 9.9 (05/17/23) 9.8 (05/10/23) 10.3 (05/03/23) PLATELETS 1000/mcL 166 (05/24/23) 167 (04/26/23) 199 [...] goal. Encourage low potassium diet. Bicarbonate is below goal. Continue same bicarbonate in dialysate. Bone [...] at goal. Intact PTH is at goal. Chairman will adjust binders and vitamin D per [...] NP [ Signed And locked electronically On 06/02/2023 at 10:50:57 AM ] Transcribed: RANDOLPH WOODRUFF ( 06/02/2023 ) documented in this encounter Plan of Treatment Not on file documented as of this encounter Visit Diagnoses Not on filedocumented in this encounter
--- OUTSIDE RECORDS SUMMARY | 2023-07-04 14:38 | XMS_ITS | Encounter Summary ---
Author Name Unknown Organization [facility] Address [address] [facility] [address] [place] [address] Care Team Providers Care Hide Buyer Name Role Phone Unavailable Primary Care Provider Unavailabl e Encounter Details Date Type Department Care Team Description 04/05/2023 Orders Only [facility] [place] [address] [facility] [address] [place] [address] Ernie Pompa MD [address] [place] [address] Social History Tobacco Use Types [...] Priority Date/Time Associated Diagnosis Comments HEMATOLOGY Routine 04/05/2023 CHEMISTRY Routine 04/05/2023 documented in this encounter Results * (ABNORMAL) HEMATOLOGY (04/05/2023) Hemoglobin 10.1(L) 14.0 - 18.0 g/dL [facility] Hemoglobin x 3 30.3(L) 42.0 - 54.0 % [facility] 04/05/2023 04/09/2023 7:3 8 AM DISTRICT PLANT SUPERVISOR Narrative [facility] - 04/09/2023 Unless otherwise specified, test(s) performed at: [facility], [address] [place] [address], [place] [address] STOCK RAISER: Alhaji Noguera M.D., Ph.D For any questions, please call customer service at FREQUENCY:OTHER Resulting Agency Comment Specimen source: Blood Ernie Pompa MD LAB BLOOD ORDERABLES Performing Organization Address [facility] Co de Phone Number [facility] * (ABNORMAL) [facility] (04/05/2023) Potassium 5.3(H) 3.5 - 5.1 mEq/L [facility] 04/05/2023 04/07/2023 10: 41 AM DISTRICT PLANT SUPERVISOR Narrative [facility] - 04/07/2023 Unless otherwise specified, test(s) performed at: [facility], [address] [place] [address], [place] [address] STOCK RAISER: Alhaji Noguera M.D., Ph.D For any questions, please call customer service at FREQUENCY:OTHER Resulting Agency Comment Specimen source: Serum Ernie Pompa MD LAB BLOOD ORDERABLES Performing Organization Address City/[facility]/ZIP Co de Phone Number [facility] documented in this encounter Visit Diagnoses Not on filedocumented in this encounter
--- OUTSIDE RECORDS SUMMARY | 2023-07-04 14:38 | XMS_ITS | Encounter Summary ---
Author Name Unknown Organization [facility] Address [address] [facility] [facility] [address] [place] [address] Care Team Providers Care Revenue Accounting Manager Name Role Phone Unavailable Primary Care Provider Unavailabl e Encounter Details Date Type Department Care Team Description 05/31/2023 Orders Only [facility] [place] [address] [facility] [address] [place] [address] Ernie Pompa MD [address] [place] [address] Social History Tobacco Use Types [...] Priority Date/Time Associated Diagnosis Comments HEMATOLOGY Routine 05/31/2023 CHEMISTRY Routine 05/31/2023 CHEMISTRY Routine 05/31/2023 documented in this encounter Results * [facility] (05/31/2023) Calcium 10.0 8.7 - 10.4 mg/dL [facility] Comment: Please note change in reference range. 05/31/2023 06/01/2023 4:0 8 PM CDT Narrative [facility] - 06/01/2023 Unless otherwise specified, test(s) performed at: [facility], [address] [place] [address], [place] [address] UX SPECIALIST: Alhaji Noguera M.D., Ph.D For any questions, please call customer service at FREQUENCY:OTHER Resulting Agency Comment Specimen source: Serum Ernie Pompa MD LAB BLOOD ORDERABLES [facility] * (ABNORMAL) HEMATOLOGY (05/31/2023) Hemoglobin 10.5(L) 14.0 - 18.0 g/dL [facility] Hemoglobin x 3 31.5(L) 42.0 - 54.0 % [facility] 05/31/2023 06/01/2023 2:3 8 PM CDT Narrative [facility] - 06/01/2023 Unless otherwise specified, test(s) performed at: [facility], [address] [place] [address], [place] [address] UX SPECIALIST: Alhaji Noguera M.D., Ph.D For any questions, please call customer service at FREQUENCY:OTHER Resulting Agency Comment Specimen source: Blood Ernie Pompa MD LAB BLOOD ORDERABLES Performing Organization Address [facility] Co de Phone Number [facility] * (ABNORMAL) [facility] (05/31/2023) PTH 567(H) 16 - 80 pg/mL [facility] 05/31/2023 06/01/2023 2:2 4 PM CDT Narrative [facility] - 06/01/2023 Unless otherwise specified, test(s) performed at: [facility], [address] [place] [address], [place] [address] UX SPECIALIST: Alhaji Noguera M.D., Ph.D For any questions, please call customer service at FREQUENCY:OTHER Resulting Agency Comment Specimen source: Plasma Ernie Pompa MD LAB BLOOD ORDERABLES Performing Organization Address City/[facility]/ZIP Co de Phone Number [facility] documented in this encounter Visit Diagnoses Not on filedocumented in this encounter
--- OUTSIDE RECORDS SUMMARY | 2023-07-04 14:38 | XMS_ITS | Clinical Summary ---
Author Name Unknown Organization [facility] Address [address] [place] [address] Phone Care Team Providers Care Tester Equipment Name Role Phone Unavailable Primary Care Provider Unavailabl e Encounters Date Type Department Care Team Description 06/28/2023 Orders Only [facility] [place] [address] [place] [address] Ernie Pompa MD 06/28/2023 [facility] [address] [place] [address] Allison Woodruff, ITINERANT TEACHER ASSISTANT-COMMERCIAL COUNSEL 06/21/2023 Orders Only [facility] [address] [place] [phone] Ernie Pompa MD 06/14/2023 Orders Only [facility] [address] [place] [address] Ernie Pompa MD 06/12/2023 Treatment [facility] [address] [place] [address] Ernie Pompa MD 06/07/2023 Orders Only [facility] [address] [place] [address] Ernie Pompa MD 06/02/2023 Treatment [facility] [address] [place] [address] Allison Woodruff, ITINERANT TEACHER ASSISTANT-COMMERCIAL COUNSEL 05/31/2023 Orders Only [facility] [place] [address] [place] [address] Ernie Pompa MD 05/24/2023 Orders Only [facility] [address] [place] [address] Ernie Pompa MD 05/17/2023 Orders Only [facility] [address] [place] [address] Ernie Pompa MD 05/15/2023 Treatment [facility] [address] [place] [address] Ernie Pompa MD 05/10/2023 Orders Only [facility] [address] [place] [address] Ernie Pompa MD 05/03/2023 Orders Only [facility] [place] [address] [place] [address] Ernie Pompa MD 04/28/2023 Orders Only [facility] [address] [place] [address] Ernie Pompa MD 04/26/2023 Orders Only [facility] [address] [place] [address] Ernie Pompa MD 04/21/2023 Treatment [facility] [address] [place] [address] Allison Woodruff APRN-COMMERCIAL COUNSEL 04/19/2023 Orders Only [facility] [address] [place] [address] Ernie Pompa MD 04/12/2023 Orders Only [facility] [place] [address] [place] [phone] Ernie Pompa MD 04/10/2023 Treatment [facility] [place] [address] [place] [address] Ernie Pompa MD 04/05/2023 Orders Only [facility] [place] [address] [place] [address] Ernie Pompa MD from Last 3 Months Social History Tobacco Use Types Packs/Day Years Used Date Smoking Tobacco: Unknown Comments:Smoking History Inf o:Patient not screened Sex and Gender Information Value Date Recorded Sex Assigned at Not on file Gender Identity Not on file Sexual Orientation Not on file Plan of Treatment Health Maintenance Due Date Last Done Comments Hepatitis B Vaccine (1 of 5 - Risk Dialysis 4-dose series) 1965 Diabetes: Ophthalmology Exam 06/06/2019 Diabetes: Pedal Pulse Checked 06/06/2019 Diabetes: Sensory Foot Exam 06/06/2019 Diabetes: Visual Foot Exam 06/06/2019 Diabetes: Hemoglobin A1C 10/16/2020 07/17/2020 Influenza Vaccine (Season Ended) 2023 12/04/2019, 12/28/2018, 01/04/2018, Additional history exists Pneumococcal Vaccine: 65+ Years Completed 12/09/2015, 08/21/2014, 10/07/2008 Procedures Procedure Name Priority Date/Time Associated Diagnosis Comments HEMATOLOGY Routine 06/28/2023 [facility] LAB RESULTS Routine 06/21/2023 HD KINETICS Routine 06/21/2023 CHEMISTRY Routine 06/21/2023 HEMATOLOGY Routine 06/21/2023 IMMUNO CHEMISTRY Routine 06/21/2023 POST CHEMISTRY Routine 06/21/2023 HEMATOLOGY Routine 06/14/2023 HEMATOLOGY Routine 06/07/2023 CHEMISTRY Routine 05/31/2023 HEMATOLOGY Routine 05/31/2023 CHEMISTRY Routine 05/31/2023 [facility] LAB RESULTS Routine 05/24/2023 HD KINETICS Routine 05/24/2023 CHEMISTRY Routine 05/24/2023 HEMATOLOGY Routine 05/24/2023 POST CHEMISTRY Routine 05/24/2023 IMMUNO CHEMISTRY Routine 05/24/2023 HEMATOLOGY Routine 05/17/2023 HEMATOLOGY Routine 05/10/2023 HEMATOLOGY Routine 05/03/2023 CHEMISTRY Routine 04/28/2023 [facility] LAB RESULTS Routine 04/26/2023 IMMUNO CHEMISTRY Routine 04/26/2023 CHEMISTRY Routine 04/26/2023 HD KINETICS Routine 04/26/2023 POST CHEMISTRY Routine 04/26/2023 HEMATOLOGY Routine 04/26/2023 CHEMISTRY Routine 04/26/2023 HEMATOLOGY Routine 04/19/2023 HEMATOLOGY Routine 04/12/2023 HEMATOLOGY Routine 04/05/2023 CHEMISTRY Routine 04/05/2023 from Last 3 Months Results * (ABNORMAL) HEMATOLOGY (06/28/2023) Only the most recent of13 resultswithin the time period is included. Pathologist [facility] Hemoglobin 10.3(L) 14.0 - 18.0 g/dL [facility] Hemoglobin x 3 30.9(L) 42.0 - 54.0 % [facility] 06/28/2023 06/29/2023 9:[address] [facility] - 06/29/2023 Unless otherwise specified, test(s) performed at: [facility], [address] [place] [address], [place] [address] EMT: Alhaji Noguera M.D., Ph.D For any questions, please call customer service at FREQUENCY:OTHER Resulting Agency Comment Specimen source: Blood Ernie Pompa MD LAB BLOOD ORDERABLES Performing Organization Address [facility] de Phone Number [facility] edupristine [facility] JP3 Measurement See order comments or contact performing lab Unknown, [place] * (ABNORMAL) HD KINETICS (06/21/2023) Only the most recent of3 resultswithin the time period is included. Pathologist [facility] % Urea Reduction 81(H) 65 - 80 % [facility] 06/21/2023 06/22/2023 5:[address] [facility] - 06/22/2023 Unless otherwise specified, test(s) performed at: [facility], [address] [place] [address], [place] [address] EMT: Alhaji Noguera M.D., Ph.D For any questions, please call customer service at FREQUENCY:MONTHLY Resulting Agency Comment Specimen source: Plasma Ernie Pompa MD LAB BLOOD ORDERABLES Performing Organization Address [facility] de Phone Number [facility] JP3 Measurement See order comments or contact performing lab Unknown, [place] * POST CHEMISTRY (06/21/2023) Only the most recent of3 resultswithin the time period is included. Pathologist [facility] BUN Post Dialysis 14 6 - 19 mg/dL [facility] 06/21/2023 06/22/2023 5:[address] [facility] - 06/22/2023 Unless otherwise specified, test(s) performed at: [facility], [address] [place] [address], [place] [address] EMT: Alhaji Noguera M.D., Ph.D For any questions, please call customer service at FREQUENCY:MONTHLY Resulting Agency Comment Specimen source: Plasma Ernie Pompa MD LAB BLOOD ORDERABLES Performing Organization Address City/[facility] Co de Phone Number [facility] See order comments or contact performing lab Unknown, [place] * IMMUNO CHEMISTRY (06/21/2023) Only the most recent of3 resultswithin the time period is included. [facility] Hep B Surface Ag Negative Negative [facility] 06/21/2023 06/22/2023 5:[address] [facility] - 06/22/2023 Unless otherwise specified, test(s) performed at: [facility], [address] [place] [address], [place] [address] EMT: Alhaji Noguera M.D., Ph.D For any questions, please call customer service at FREQUENCY:MONTHLY Resulting Agency Comment Specimen source: Plasma Ernie Pompa MD LAB BLOOD ORDERABLES Performing Organization Address City/[facility] Co de Phone Number [facility] See order comments or contact performing lab Unknown, [place] * (ABNORMAL) [facility] (06/21/2023) Only the most recent of8 resultswithin the time period is included. [facility] BUN 74(H) 6 - 19 mg/dL [facility] [...] 06/22/2023 Unless otherwise specified, test(s) performed at: [facility], [address] [place] [address], [place] [address] EMT: Alhaji Noguera M.D., Ph.D For any questions, please call customer service at FREQUENCY:MONTHLY Resulting Agency Comment Specimen source: Serum Ernie Pompa MD LAB BLOOD ORDERABLES [facility]RA KSN [facility] See order comments or contact performing lab Unknown, [place] * [facility] Lab Results (06/21/2023) Only the most recent of3 resultswithin the time period is included. WSTDKT/V 2.7 [facility] eNPCR 1.39 [facility] spKt/V Gotch 2.09 [facility] eKt/V ([place]) 1.74 [facility] nPCR_HD 1.48 [facility] PCR 85.02 [facility] eKdrt/V 1.81 [facility] eKt/V Gotch 1.81 [facility] e Center spKt/V (Daugirdas II) 1.99 [facility] 06/21/2023 06/21/2023 Kameron Ordering Provider LAB BLOOD ORDERABLE S [facility] Contact Performing lab Unknown, [place] from Last 3 Months
== END 2023-07-04 14:35 | disposition home or self-care (01) ==
LOC: WOUND 14:34
PROVIDERS: PCP Family Medicine; Visit Provider Nurse Practitioner Family
DX: E11.621 Type 2 diabetes mellitus with foot ulcer (principal); E11.40 Type 2 diabetes mellitus with diabetic neuropathy, unspecified; L97.518 Non-pressure chronic ulcer of other part of right foot with other specified severity
CPT/HCPCS: 97597; G0463

== ENCOUNTER 2023-07-18 14:36 | Outpatient (CLI) | payer MEDICARE, SELFPAY ==
--- OUTSIDE RECORDS SUMMARY | 2023-07-18 14:37 | XMS_ITS ---
Author Name Unknown Organization [facility] Address [address] [place] [address] Care Team Providers Care Rent Control Office Manager Name Role Phone Unavailable Unavailable Unavailable Surgery Details Not on file Complications Check Surgery Details section. Procedure Estimated Blood Loss Check Surgery Details section. Procedure Findings Check Surgery Details section. Procedure Specimens Taken Check Surgery Details section.
--- OUTSIDE RECORDS SUMMARY | 2023-07-18 14:37 | XMS_ITS ---
Author Name Unknown Organization [facility] Address [address] [place] [address] Care Team Providers Care Manufacturing Tech Name Role Phone Elsewhere, Pcp Primary Care [...] Failure Renal End Stage 12/30/2021 07/26/19 23 Major Depressive Disorder, Recurrent, Unspecifie d 10/15/2021 07/25/2022 Chronic Kidney Disease Stage 5 Glomerular Filtration [...] valve stenosis. 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 LAB BLOOD ADD-ON [facility] [address] [place] [address], [facility] ECLR [facility] in [address] [address] from Last 3 Months or Most Recently Relevant to Health Maintenance
--- OUTSIDE RECORDS SUMMARY | 2023-07-18 14:37 | XMS_ITS | Referral Summary ---
Author Name Unknown Organization [facility] Address [address] [place] [address] Care Team Providers Care Cafe Attendant Name Role Phone Elsewhere, Pcp Primary Care Provider Unavailabl e Source Comments Patient records contain information from all sites at [facility]. For routine questions regarding patient records, call [phone] during business hours, M-F 8:00 AM - 5:00 PM Central Time. Record requests for emergency care only can be directed to [phone] at any time.[facility] Allergies Active Allergy Reactions Criticality Noted Date [...] valve stenosis. 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 LAB BLOOD ADD-ON [facility] [address] [place] [id number], [facility] ECLR [facility] in [address] [address] from Last 3 Months or Most Recently Relevant to Health Maintenance Advance Directives For more information, please contact: [phone] * Full Code (Latest Code Status on File) Date Activated Date Inactivated Comments 07/24/2022 10:03 PM 07/27/2022 10:19 PM Question Answer Comments Full Code: Not Discussed Due to: Patient not available Care Teams Cafe Attendant Relationship Specialty Start Date End Date Elsewhere, Pcp PCP - General Internal Medicine 07/25/22
--- OUTSIDE RECORDS SUMMARY | 2023-07-18 14:37 | XMS_ITS ---
Author Name Gabrielle, Clinic Address [address] [place], [place] [id number] Phone [phone] Organization [facility] e, NA DOCUMENT DISCLAIMER Multiple document versions may exist, please be sure you review the latest version. The information in the [facility] Continuity of Care Document represents a summary [...] Sign Value Date / Time Blood Pressure-sitting 131/58 mmHg July 17, 2023 08:23 AM Blood Pressure-standing 125/44 mmHg June 08:23 AM Heart Rate 53 beats per minute July 16 08:23 AM Respiratory Rate 18 breaths per minute July 17, 2023 08:23 AM Temperature 97.5 deg. F July 17, 2023 0 8:23 AM Weight Vital Sign Value Date / Time Estimated Dry Weight 95.5 kg June 20 11:59 PM Pre-Dialysis 100.40 kg July 17, 2023 0 8:23 AM Post-Dialysis 96.40 kg July 17, 2023 0 8:23 AM Other Other Value Date / Time Height 173 cm August 25, 2021 12 :00 AM [facility] LAB RESULTS Hematology Result Type Result Value Relevant Referen ce Range Interpretation Date UIBC (Calc) 127 mcg/dL 155 - 355 mcg/dL Low Novem2022 TIBC 204 mcg/dL 185 - 515 mcg/dL [...] 116 mcg/dL 155 - 355 mcg/dL Low 2022 UIBC (Calc) 147 mcg/dL 155 - 355 mcg/dL Low March 22, 2023 Transferrin Sat. (Calc) 29 % 20 - 55 % - March 22, 2023 TIBC 206 mcg/dL 185 - 515 mcg/dL - March 22, 2023 WBC (No Diff) 10.22 1000/mcL 4.80 - 10.80 1000/mcL - March 22, 2023 Platelets 199 1000/mcL 130 - 400 1000/mcL - [place] lele 2023 Hemoglobin x 3 29.1 % 42.0 - 54.0 % Low April 19, 2023 Platelets 167 1000/mcL 130 - 400 1000/mcL - Febr uary 2023 Hemoglobin x 3 30.6 % 42.0 - 54.0 % Low Februar y 2023 MCHC 33.2 g/dL 30.0 - 36.0 [...] mcg/dL 155 - 355 mcg/dL Low Februar y 2023 TIBC 216 mcg/dL 185 - 515 [...] 166 1000/mcL 130 - 400 1000/mcL - Amish 2023 Hemoglobin x 3 30.3 % 42.0 - 54.0 % Low May RDW 13.8 % 11.5 - 14.5 % - May 23, 024 MCHC 31.3 g/dL 30.0 - 36.0 g/dL - May MCH 34.3 pg 27.0 - 31.0 pg High May 24, 2023 WBC (No Diff) 7.94 1000/mcL 4.80 - 10.80 1000/mcL - May 24, 2023 Hemoglobin x 3 31.5 % 42.0 - 54.0 % Low May 182023 Hemoglobin x 3 29.4 % 42.0 - 54.0 % Low May 192023 Hemoglobin x 3 31.2 % 42.0 - [...] 42.0 - 52.0 % Low June 20 WBC (No Diff) 7.53 1000/mcL 4.80 - 10.80 1000/mcL - June 21, 2023 HGB 10.3 g/dL 14.0 - 18.0 g/dL Low June Hemoglobin x 3 30.9 % 42.0 - 54.0 % June 182023 Hemoglobin x 3 28.5 % 42.0 - 54.0 % Low June 182023 HGB 9.5 g/dL 14.0 - 18.0 g/dL Low June HGB 10.2 g/dL 14.0 - 18.0 g/dL Low June Hemoglobin x 3 30.6 % 42.0 - 54.0 % June 192023 Metabolic/Renal Result Type Result Value Relevant Referen ce Range Interpretation Date BUN/Creat Ratio 9.3 10.0 - 20.0 Low April 26, 2023 Creatinine, Serum 6.24 mg/dL 0.60 - 1.30 mg/dL High April 26, 2023 BUN 58 mg/dL 6 - 19 mg/dL High April 26, 2023 BUN, Post 11 mg/dL 6 - 19 mg/dL - April 26, 2023 URR, Calc 81 % 65 - 80 % High April 26 Sodium 133 mEq/L 136 - 145 mEq/L [...] Relevant Referen ce Range Interpretation Date Magnesium 1.8 mg/dL 1.6 - 2.6 mg/dL - October 05, 2022 Vitamin D 25 Hydroxy 30.1 ng/mL 30.0 - 100.0 ng/mL - October 05, 2022 Vitamin D 25 Hydroxy 36.4 ng/mL 30.0 - 100.0 ng/mL - November 07, 2022 Magnesium 1.6 mg/dL 1.6 - 2.6 mg/dL - October Magnesium 1.8 mg/dL 1.6 - 2.6 mg/dL - December Vitamin D 25 Hydroxy 23.2 ng/mL 30.0 - 100.0 ng/mL Low January 18, 2023 PTH-Intact, Plasma 847 pg/mL 16 - 80 pg/mL High Dec ember 2022 PTH-Intact, Plasma 578 pg/mL 16 - 80 pg/mL High Ba uary 2023 PTH-Intact, Plasma 593 pg/mL 16 - 80 pg/mL High Feb ruary 2023 Alkaline Phosphatase 146 U/L 40 - 129 U/L High Fe bruary 2023 Magnesium 1.7 mg/dL 1.6 - 2.6 mg/dL - April 28, 2023 Ca x P Product 45 0 - 54 - April 0 2023 Calcium, Total 9.9 mg/dL 8.7 - 10.4 mg/dL - 2023 Phosphorus 4.5 mg/dL 2.6 - 4.5 mg/dL - April 28, 2023 Phosphorus 3.4 mg/dL 2.6 - 4.5 mg/dL - May 24, 2023 Calcium, Total 9.8 mg/dL 8.7 - 10.4 mg/dL - Amish h 2023 Ca x P Product 33 0 - 54 - May 24, 2023 Corrected Ca x P Product 33 0 - 54 - May 24, 2023 Calcium, Total 10.0 mg/dL 8.7 - 10.4 mg/dL - Amish h 2023 PTH-Intact, Plasma 567 pg/mL 16 - 80 pg/mL [facility] 2023 Corrected Ca x P Product 42 0 - 54 - June 21, 2023 Phosphorus 4.3 mg/dL 2.6 - 4.5 mg/dL - June 21, 2023 Ca x P Product 42 0 - 54 - June 21, 2023 Calcium, Total 9.7 mg/dL 8.7 - 10.4 mg/dL - Apri l 2023 Liver/Nutrition Result Type Result Value Relevant Referen ce Range Interpretation Date Total Protein 7.1 g/dL 6.0 - 8.5 g/dL - 2023 eNPCR 1.14 No Reference Ran ge Provided - April 26, 2023 A/G Ratio 1.2 1.0 - 2.0 - April 26, 2 024 Globulin (Calc) 3.3 g/dL 2.0 - 4.0 [...] L Intramuscular Completed HEPLISAV-B, series 4 of January 04, 2021 20.0 mcg Intr amuscular Completed HEPLISAV-B, series 3 of November 09, 2020 20.0 mcg Intra muscular Completed HEPLISAV-B, series 2 of October 12, 2020 20.0 mcg Intramu scular Completed HEPLISAV-B, series 1 of 4 September 07, 2020 20.0 mcg Intramu scular Completed Moderna COVID-19 Vaccine, Do se 2 of May 11, 2020 0.5 mL Intramuscular Completed Moderna COVID-19 Vaccine, Do se 1 of April 17, 2020 0.5 mL Intramuscular Completed MMDMBAS-S-JDLXE, series 4 of 4 October 30, 2019 40.0 mcg Intramuscular Completed HRDVHTC-A-ZVRGO, series 3 of 4 July 03, 2019 40.0 mcg I ntramuscular Completed LJSAEVU-L-CENVJ, series 2 of 4 June 03, 2019 40.0 mcg I ntramuscular Completed KBUAERX-K-SUWCS, series 1 of 4 May 03, 2019 40.0 mcg Intramuscular Completed TRANSPLANT WAITLIST STATUS No Information on Transplant Waitlist Status ADVANCE DIRECTIVES Directive Description Ordered By Effective Date Resuscitation status Full Code Ernie Pompa Nov 07, 2022 DIALYSIS TREATMENTS Conventional Hemodialysis Date Pre-Treatment Vitals Post-Treatment Lexus ls Duration (hr) BFR (mL/min) Dialysate Dialyzer Dialysis Access Meds Admin July 12, 2023 Weight 99.10 kg Weight 95.60 kg 04:00:00 450 2.0 K, 2.5 Ca, 1.0 Mg, 100 Dextrose (G2251) 180nre Optifl ux Blood Pressure-sitting 140/55 mmHg Blood Pressure-sit ting 127/59 mmHg Blood Pressure-standing 137/64 mmHg Blood Pressure-st anding 103/54 mmHg Heart Rate 78 beats per minute Heart Rate 54 beats per minute Respiratory Rate 18 breaths per minute Respiratory Rate 18 breaths per minute Temperature 98.4 deg. F Temperature 98.0 deg. F July 14, 2023 Weight 99.60 kg Weight 95.60 kg 04:01:00 450 2.0 K, 2.5 Ca, 1.0 Mg, 100 Dextrose (G2251) 180nre Optiflux Hemodialysis-AV Fistula-Standard, Left Upper Arm, Other/Unknown Doxercalciferol (Hectorol); 3mcg,Intravenous - push Etelcalcetide (Parsabiv); 10mg,Intravenous - push Heparin Sodium (Porcine) 1,000 Units/mL Systemic; 3000units,Intravenous - push Blood Pressure-sitting 125/59 mmHg Blood Pressure-sit ting 131/46 mmHg Blood Pressure-standing 129/65 mmHg Blood Pressure-st anding 121/42 mmHg Heart Rate 98 beats per minute Heart Rate 60 beats per minute Respiratory Rate 20 breaths per minute Respiratory Rate 18 breaths per minute Temperature 98.3 deg. F Temperature 97.7 deg. F July 17, 2023 Weight 100.40 kg Weight 96.40 kg 04:01:00 450 2.0 K, 2.5 Ca, 1.0 Mg, 100 Dextrose (G2251) 180nre Optiflux Hemodialysis-AV Fistula-Standard, Left Upper Arm, Other/Unknown Doxercalciferol (Hectorol); 3mcg,Intravenous - push Etelcalcetide (Parsabiv); 10mg,Intravenous - push Heparin Sodium (Porcine) 1,000 Units/mL Systemic; 3000units,Intravenous - push Blood Pressure-sitting 145/43 mmHg Blood Pressure-sit ting 131/58 mmHg Blood Pressure-standing 155/70 mmHg Blood Pressure-st anding 125/44 mmHg Heart Rate 85 beats per minute Heart Rate 53 beats per minute Respiratory Rate 18 breaths per minute Respiratory Rate 18 breaths per minute Temperature 97.1 deg. F Temperature 97.5 deg. F
--- OUTSIDE RECORDS SUMMARY | 2023-07-18 14:37 | XMS_ITS | Clinical Summary ---
Author Name Unknown Organization [facility] Address [address] [place] [address] Care Team Providers Care Starch And Prosize Mixer Name Role Phone Elsewhere, Pcp Primary Care Provider Unavailabl e Source Comments Patient records contain information from all sites at [facility]. For routine questions regarding patient records, call [phone] during business hours, M-F 8:00 AM - 5:00 PM Central Time. Record requests for emergency care only can be directed to [phone] at any time.[facility] Allergies Active Allergy Reactions Criticality Noted [...] valve stenosis. 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 LAB BLOOD ADD-ON [facility] [address] [place] [address], [facility] ECLR [facility] in [address] [address] from Last 3 Months or Most Recently Relevant to Health Maintenance Advance Directives For more information, please contact: [phone] * Full Code (Latest Code Status on File) Date Activated Date Inactivated Comments 07/24/2022 10:03 PM 07/27/2022 10:19 PM Question Answer Comments Full Code: Not Discussed Due to: Patient not available Care Teams Starch And Prosize Mixer Relationship Specialty Start Date End Date Elsewhere, Pcp PCP - General Internal Medicine 07/25/22
--- OUTSIDE RECORDS SUMMARY | 2023-07-18 14:38 | XMS_ITS | Encounter Summary ---
Author Name Unknown Organization [facility] Address [address] [facility] [address] [facility] [address] [place] [address] Care Team Providers Care Customer Support Specialist Name Role Phone Unavailable Primary Care Provider Unavailabl e Encounter Details Date Type Department Care Team Description 06/28/2023 Orders Only [facility] [place] [address] [facility] [place] [address] [place] [address] Ernie Pompa MD [address] [place] [address] Social History Tobacco Use Types [...] (06/28/2023) Hemoglobin 10.3(L) 14.0 - 18.0 g/dL [facility] Hemoglobin x 3 30.9(L) 42.0 - 54.0 % [facility] 06/28/2023 06/29/2023 9:2 9 AM CDT Narrative [facility] - 06/29/2023 Unless otherwise specified, test(s) performed at: [facility], [address] [place] [address], [place] [address] LOSS CLAIM CLERK: Alhaji Noguera M.D., Ph.D For any questions, please call customer service at FREQUENCY:OTHER Resulting Agency Comment Specimen source: Blood Ernie Pompa MD LAB BLOOD ORDERABLES [facility] See order comments or contact performing lab Unknown, [place] documented in this encounter Visit Diagnoses Not on filedocumented in this encounter
--- OUTSIDE RECORDS SUMMARY | 2023-07-18 14:38 | XMS_ITS | Clinical Summary ---
Author Name Unknown Organization [facility] Address [address] [place] [address] Care Team Providers Care Material Processor Name Role Phone Liban Leos Primary Care Provider [phone] Ernie Pompa MD Unavailable [phone] Allergies Active Allergy Reactions Criticality Noted Date [...] Active fluticasone (FLONASE) 50 MCG/ACT nasal spray [place] 1 spray in nostril daily 12/15/2020 Active [...] and gender (Brigette et al., NEJM, DOI: 10.1056/TLXWvi9887069) Blood STRUCTURE OF RIGHT UPPER LIMB / Unknown Venipuncture / Unknown 01/18/2022 5:13 AM CDT 01/18/2022 7:54 AM CDT Ashtyn Vogt MD LAB - BLOOD ORDERABL ES [facility] [address] [facility], [address] [place] [address], [facility] [phone] * (ABNORMAL) CBC with platelets (01/18/2022 5:13 [...] LAB - BLOOD ORDERABL ES [facility] [address] [facility], [address] [place] [address], [facility] [phone] * (ABNORMAL) Comprehensive metabolic panel (12/23/2021 7:51 [...] creatinine equation which includes age and gender (Circuit Breaker Mechanic et al., NEJM, DOI: 10.1056/[id number]) Blood STRUCTURE OF RIGHT UPPER LIMB / Unknown Venipuncture / Unknown 12/23/2021 7:51 PM CDT 12/23/2021 7:56 PM CDT Nakita Pruitt MD LAB - BLOOD ORDERABL ES LABORATORY [facility] [address] [facility] Lab (1st floor, no room number) [place] [address], [facility] [phone] from Last 3 Months or Most Recently Relevant to Health Maintenance Advance Directives For more information, please contact: [phone] * Full Code (Latest Code Status on [...] fatoue nt/ legal decision maker Care Teams Material Processor Relationship Specialty Start Date End Date Liban Leos [address] [place] [address] PCP - General Family Medicine 10/08/21 Ernie Pompa MD [address] [place] [address] Nephrology 10/08/21
--- OUTSIDE RECORDS SUMMARY | 2023-07-18 14:38 | XMS_ITS | Encounter Summary ---
Author Name Unknown Organization [facility] Address [address] [facility] [facility] [address] [place] [address] Care Team Providers Care Bag Hanger Name Role Phone Unavailable Primary Care Provider Unavailabl e Encounter Details Date Type Department Care Team Description 05/31/2023 Orders Only [facility] [place] [address] [facility] [address] [place] [address] Ernie Pompa MD [address] [place] [address] Social History Tobacco Use Types [...] 06/01/2023 Unless otherwise specified, test(s) performed at: [facility], [address] [place] [address], [place] [address] BISQUE FINISHER: Alhaji Noguera M.D., Ph.D For any questions, [...] 06/01/2023 Unless otherwise specified, test(s) performed at: [facility], [address] [place] [address], [place] [address] BISQUE FINISHER: Alhaji Noguera M.D., Ph.D For any questions, please call customer service at FREQUENCY:OTHER Resulting Agency Comment Specimen source: Blood Ernie Pompa MD LAB BLOOD ORDERABLES Performing Organization Address [facility] Co de Phone Number [facility] * (ABNORMAL) [facility] (05/31/2023) PTH 567(H) 16 - 80 pg/mL [facility] 05/31/2023 06/01/2023 2:2 4 PM CDT Narrative [facility] - 06/01/2023 Unless otherwise specified, test(s) performed at: [facility], [address] [place] [address], [place] [address] BISQUE FINISHER: Alhaji Noguera M.D., Ph.D For any questions, please call customer service at FREQUENCY:OTHER Resulting Agency Comment Specimen source: Plasma Ernie Pompa MD LAB BLOOD ORDERABLES Performing Organization Address City/[facility]/ZIP Co de Phone Number [facility] documented in this encounter Visit Diagnoses Not on filedocumented in this encounter
--- OUTSIDE RECORDS SUMMARY | 2023-07-18 14:38 | XMS_ITS | Encounter Summary ---
Author Name Unknown Organization [facility] Address [address] [facility] [address] [facility] [address] [place] [address] Care Team Providers Care Trial Management Associate Name Role Phone Unavailable Primary Care Provider Unavailabl e Encounter Details Date Type Department Care Team Description 05/24/2023 Orders Only [facility] [place] [address] [place] [address] [place] [address] Ernie Pompa MD [address] [place] [address] Social History Tobacco Use Types [...] LAB BLOOD ORDERABLE S Performing Organization Address [facility] Co de Phone Number KAMERON * (ABNORMAL) HD KINETICS (05/24/2023) % Urea Reduction 81(H) 65 - 80 % [facility] 05/24/2023 05/25/2023 5:3 3 PM GREASE AND TALLOW PUMPER Narrative [facility] - 05/26/2023 Unless otherwise specified, test(s) performed at: [facility], [address] [place] [address], [place] [address] BUCKLE GLUER: Alhaji Noguera M.D., Ph.D For any questions, please call customer service at FREQUENCY:MONTHLY Resulting Agency Comment Specimen source: Plasma Ernie Pompa MD LAB BLOOD ORDERABLES Performing Organization Address [facility] Co de Phone Number APS [...] [facility] 05/24/2023 05/26/2023 2:5 3 AM GREASE AND TALLOW PUMPER Narrative [facility] - 05/26/2023 Unless otherwise specified, test(s) performed at: [facility], [address] [place] [address], [place] [address] BUCKLE GLUER: Alhaji Noguera M.D., Ph.D For any questions, [...] [facility] 05/24/2023 05/26/2023 2:3 4 AM GREASE AND TALLOW PUMPER Narrative [facility] - 05/26/2023 Unless otherwise specified, test(s) performed at: [facility], [address] [place] [address], [place] [address] BUCKLE GLUER: Alhaji Noguera M.D., Ph.D For any questions, please call customer service at FREQUENCY:MONTHLY Resulting Agency Comment Specimen source: Blood Ernie Pompa MD LAB BLOOD ORDERABLES [facility] * POST CHEMISTRY (05/24/2023) BUN Post Dialysis 12 6 - 19 mg/dL [facility] 05/24/2023 05/25/2023 5:3 3 PM GREASE AND TALLOW PUMPER Narrative [facility] - 05/25/2023 Unless otherwise specified, test(s) performed at: [facility], [address] [place] [address], [place] [address] BUCKLE GLUER: Alhaji Noguera M.D., Ph.D For any questions, please call customer service at FREQUENCY:MONTHLY Resulting Agency Comment Specimen source: Plasma Ernie Pompa MD LAB BLOOD ORDERABLES [facility] * IMMUNO CHEMISTRY (05/24/2023) Hep B Surface Ag Negative Negative [facility] 05/24/2023 05/25/2023 3:5 2 PM GREASE AND TALLOW PUMPER Narrative [facility] - 05/25/2023 Unless otherwise specified, test(s) performed at: [facility], [address] [place] [address], [place] [address] BUCKLE GLUER: Alhaji Noguera M.D., Ph.D For any questions, please call customer service at FREQUENCY:MONTHLY Resulting Agency Comment Specimen source: Plasma Ernie Pompa MD LAB BLOOD ORDERABLES [facility] documented in this encounter Visit Diagnoses Not on filedocumented in this encounter
--- OUTSIDE RECORDS SUMMARY | 2023-07-18 14:38 | XMS_ITS | Encounter Summary ---
Author Name Unknown Organization [facility] Address [address] [facility] [address] [facility] [address] [place] [address] Care Team Providers Care Awning Hanger Helper Name Role Phone Unavailable Primary Care Provider Unavailabl e Encounter Details Date Type Department Care Team Description 06/07/2023 Orders Only [facility] [place] [address] [facility] [address] [place] [address] Ernie Pompa MD [address] [place] [address] Social History Tobacco Use Types [...] 06/08/2023 Unless otherwise specified, test(s) performed at: [facility], [address] [place] [address], [place] [address] IN PROCESS INSPECTOR: Alhaji Noguera M.D., Ph.D For any questions, please call customer service at FREQUENCY:OTHER Resulting Agency Comment Specimen source: Blood Ernie Pompa MD LAB BLOOD ORDERABLES [facility] documented in this encounter Visit Diagnoses Not on filedocumented in this encounter
--- OUTSIDE RECORDS SUMMARY | 2023-07-18 14:38 | XMS_ITS | Encounter Summary ---
Author Name Unknown Organization [facility] [place] Address [address] [place] [address] Care Team Providers Care Target Worker Name Role Phone Unavailable Primary Care Provider Unavailabl e Encounter Details Date Type Department Care Team Description 07/07/2023 Treatment [facility] [place] [address] [place] [address] Ernie Pompa MD [address] [place] [address] Social History Tobacco Use Types Packs/Day Years Used Date Smoking Tobacco: Unknown Comments:Smoking History Inf o:Patient not screened Sex and Gender Information Value Date Recorded Sex Assigned at Not on file Gender Identity Not on file Sexual Orientation Not on file documented as of this encounter Miscellaneous Notes * Dialysis Note - Ernie Pompa MD - 07/07/2023 1:37 PM CDT Date: Jul 07, 2023 Patient Name: Shaun Ocampo : 1945 Chart #: [id number] Sex: M This patient was personally seen for a complete visit as part of routine monthly dialysis care. A review of the dialysis treatment, blood pressure, estimated dry weight and recent lab values was made. These were discussed with the patient and staff as necessary. Treatment Data for 07/07/2023 started at:8:19 AM Dialyzer: 180NRe Optiflux Na: 138 mEq/L Bicarb: 30 mEq/L Dialysate: 2.0 K, 2.5 Ca, 1.0 Mg, 100 Dextrose (G2251) Dialysate/Machine Temp (prescribed): 37 C Dialysate/Machine Temp (actual): 36 C BFR (prescribed): 450 BFR (actual): n/a Prescribed time: 04:00 EDW: 95.5 kg Access Type: Active (In Use):AVFistula-Standard/Left Upper Arm Pre Dialysis Vitals (for 07/07/2023 8:11 AM ) Pre BP (sit): 155/57 Pre Wt: 99.7 kg Temp: 97.4 F Post Dialysis Vitals (for 07/05/2023 12:38 PM ) Post BP (sit): 124/59 Post Wt: 95.3 kg Current Dialysis Vitals (for 07/07/2023 12:22 PM ) BP (sit): 123/61 AP(-) / SENIOR PHARMACY TECHNICIAN: n/a Pulse: 56 Chairside data as of 07/07/2023 12:22 PM Last 3 Treatments 07/05/2023 07/03/2023 06/30/2023 EDW (kg) 95.5 95.5 95.5 Weight Pre (kg) 99 100.1 98.5 Weight Post (kg) 95.3 95.9 95 Dialytic Weight Loss (kg) -3.7 -4.2 -3.5 EDW Deviation (kg) -0.2 0.4 -0.5 BP Sit Pre 131/57 128/46 137/48 BP Sit Post 124/59 143/47 126/50 UF Rate (mL/kg/hr) 10 11 9 Prescribed BFR 450 450 450 Average Delivered BFR 450 450 450 Prescribed Treatment Time 04:00 04:00 04:00 Actual Treatment Time 03:58 04:05 04:00 Last 3 Values 06/19/2023 05/22/2023 04/24/2023 Access [...] Every 4 weeks During Dialysis 03/15/2023 03/13/2024 BURGLAR ALARM INSTALLER: Ernie Pompa MD LOCATION: [place] [phone] SCHEDULE: -- 1st Shift EDW: kg. DIALYZER: HD DURATION: NEEDLE SIZE: ANTICOAG: BATH: QB: ml/min QD: ml/min Subjective Tolerating dialysis well. 07/07/23: He is overall doing well. He is reaching his dry weight. BP adequate. No recent cramps. Access working well. Seeing wound clinic for small wound on bottom of R foot, stable to improving. Getting new diabetic shoes hopefully next month. Advanced Practitioner Subjective COIN MACHINE OPERATOR 06/28/2023: Spoke with patient on dialysis. Doing well. Denies SOB, chest pain, or dizziness. IDWGs have slightly improved. AVF functional; no reported issues. BP stable. Continue to challenge EDW. COIN MACHINE OPERATOR 06/02/2023: Seen on dialysis. Fluid gains have been improved. Achieving EDW. His ongoing cough has subsided. Needs ongoing encouragement to watch gains. No breathing issues. Denies chest pain or cramping. His AVF has been working well. No changes today. COIN MACHINE OPERATOR 04/21/2023: Patient seen on dialysis. Continues to [...] rate. Regular rhythm. Murmur heard. Edema - No leg edema. Access - AVF good t/b, non-aneurysmal Medication List Medication Sig Start Date albuterol sulfate 2.5 mg/3 mL (0.083 %) solution for nebulization Inhale 3 ml as directed three times a day as needed allopurinol 100 mg tablet Take 1 tablet by mouth once a day as directed atorvastatin 40 mg tablet Take 1 tablet [...] prescription. Vascular Access Assessment Type of access: [id number] Surgeon - Lary GARDNER 08/2021: fistulagram at [facility] with angioplasty of stenosis completed Anemia Assessment HEMOGLOBIN (G/DL) IN BLOOD g/dL 9.5 (07/05/23) 10.3 (06/28/23) 10.3 (06/21/23) 10.4 (06/14/23) 9.8 (06/07/23) PLATELETS 1000/mcL 156 (06/21/23) 166 (05/24/23) 167 (04/26/23) 199 (03/22/23) 126 (02/22/23) FERRITIN ng/mL 1260 (04/28/23) 931 (12/21/22) 735 (11/07/22) 591 (10/05/22) TRANSFERRIN SAT% % 36 (06/21/23) 47 (05/24/23) 42 (04/28/23) 29 (03/22/23) 37 (02/22/23) Hemoglobin is below goal. Iron Saturation is [...] 4.8 (02/22/23) CALCIUM PHOSPHORUS PRODUCT, COR 42 (06/21/23) 33 (05/24/23) 44 (03/22/23) 43 (02/22/23) 53 (12/21/22) IPTH pg/mL 567 (05/31/23) 593 (04/26/23) 578 (03/22/23) 847 (02/22/23) 661 (01/18/23) Corrected Calcium is at goal. Phosphorous is at goal. Intact PTH is at goal. Monologist will adjust binders and vitamin D per [...] MD [ Signed And locked electronically On 07/07/2023 at 01:39:19 PM ] Transcribed: Ernie Pompa ( 07/07/2023 ) documented in this encounter Plan of Treatment Not on file documented as of this encounter Visit Diagnoses Not on filedocumented in this encounter
--- OUTSIDE RECORDS SUMMARY | 2023-07-18 14:38 | XMS_ITS | Clinical Summary ---
Author Name Unknown Organization [facility] Address [address] [facility] [place] [address] Phone Care Team Providers Care Banquet Bartender Name Role Phone Unavailable Primary Care Provider Unavailabl e Encounters Date Type Department Care Team Description 07/12/2023 Orders Only [facility] [address] [place] [phone] Ernie Pompa MD 07/07/2023 [facility] [address] [place] [address] Ernie Pompa MD 07/05/2023 Orders Only [facility] [address] [place] [address] Ernie Pompa MD 06/28/2023 Orders Only [facility] [address] [place] [address] Ernie Pompa MD 06/28/2023 Treatment [facility] [address] [place] [address] Allison Woodruff, JAILER CHIEF-REFRIGERATOR GLAZIER 06/21/2023 Orders Only [facility] [address] [place] [address] Ernie Pompa MD 06/14/2023 Orders Only [facility] [address] [place] [phone] Ernie Pompa MD 06/12/2023 Treatment [facility] [address] [place] [address] Ernie Pompa MD 06/07/2023 Orders Only [facility] [address] [place] [address] Ernie Pompa MD 06/02/2023 Treatment [facility] [place] [address] [place] [address] Allison Woodruff, JAILER CHIEF-REFRIGERATOR GLAZIER 05/31/2023 Orders Only [facility] [address] [facility] [place] [address] Ernie Pompa MD 05/24/2023 Orders Only [facility] [address] [facility] [place] [address] Ernie Pompa MD 05/17/2023 Orders Only [facility] [address] [facility] [place] [address] Ernie Pompa MD 05/15/2023 Treatment [facility] [address] [place] [address] Ernie Pompa MD 05/10/2023 Orders Only [facility] [address] [facility] [place] [address] Ernie Pompa MD 05/03/2023 Orders Only [facility] [address] [facility] [place] [address] Ernie Pompa MD 04/28/2023 Orders Only [facility] [place] [address] [facility] [place] [address] Ernie Pompa MD 04/26/2023 Orders Only [facility] [place] [address] [facility] [place] [address] Ernie Pompa MD 04/21/2023 Treatment [facility] [place] [address] [place] [phone] Allison Woodruff, JAILER CHIEF-REFRIGERATOR GLAZIER 04/19/2023 Orders Only [facility] [place] [address] [place] [address] Ernie Pompa MD from Last 3 Months [...] Priority Date/Time Associated Diagnosis Comments HEMATOLOGY Routine 07/12/2023 HEMATOLOGY Routine 07/05/2023 HEMATOLOGY Routine 06/28/2023 [facility] RESULTS Routine 06/21/2023 HD KINETICS Routine 06/21/2023 CHEMISTRY Routine 06/21/2023 HEMATOLOGY Routine 06/21/2023 IMMUNO CHEMISTRY Routine 06/21/2023 POST CHEMISTRY Routine 06/21/2023 HEMATOLOGY Routine 06/14/2023 HEMATOLOGY Routine 06/07/2023 CHEMISTRY Routine 05/31/2023 HEMATOLOGY Routine 05/31/2023 CHEMISTRY Routine 05/31/2023 [facility] RESULTS Routine 05/24/2023 HD KINETICS Routine 05/24/2023 CHEMISTRY Routine 05/24/2023 HEMATOLOGY Routine 05/24/2023 POST CHEMISTRY Routine 05/24/2023 IMMUNO CHEMISTRY Routine 05/24/2023 HEMATOLOGY Routine 05/17/2023 HEMATOLOGY Routine 05/10/2023 HEMATOLOGY Routine 05/03/2023 CHEMISTRY Routine 04/28/2023 [facility] RESULTS Routine 04/26/2023 IMMUNO CHEMISTRY Routine 04/26/2023 CHEMISTRY Routine 04/26/2023 HD KINETICS Routine 04/26/2023 POST CHEMISTRY Routine 04/26/2023 HEMATOLOGY Routine 04/26/2023 CHEMISTRY Routine 04/26/2023 HEMATOLOGY Routine 04/19/2023 from Last 3 Months Results * (ABNORMAL) HEMATOLOGY (07/12/2023) Only the most recent of13 resultswithin the time period is included. Hemoglobin 10.2(L) 14.0 - 18.0 g/dL [facility] Hemoglobin x 3 30.6(L) 42.0 - 54.0 % [facility] 07/12/2023 07/13/2023 7:[address] [facility] - 07/13/2023 Unless otherwise specified, test(s) performed at: [facility], [address] [place] [address], [place] [address] FOREST FIRE MANAGEMENT OFFICER: Alhaji Noguera M.D., Ph.D For any questions, please call customer service at FREQUENCY:OTHER Resulting Agency Comment Specimen source: Blood Ernie Pompa MD LAB BLOOD ORDERABLES Performing Organization Address [facility] de Phone Number [facility] XYverify See order comments or contact performing lab Unknown, [place] * (ABNORMAL) HD KINETICS (06/21/2023) Only the most recent of3 resultswithin the time period is included. % Urea Reduction 81(H) 65 - 80 % [facility] 06/21/2023 06/22/2023 5:[address] [facility] - 06/22/2023 Unless otherwise specified, test(s) performed at: [facility], [address] [place] [address], [place] [address] FOREST FIRE MANAGEMENT OFFICER: Alhaji Noguera M.D., Ph.D For any questions, please call customer service at FREQUENCY:MONTHLY Resulting Agency Comment Specimen source: Plasma Ernie Pompa MD LAB BLOOD ORDERABLES Performing Organization Address [facility] Co de Phone Number [facility] XYverify See order comments or contact performing lab Unknown, [place] * POST CHEMISTRY (06/21/2023) Only the most recent of3 resultswithin the time period is included. BUN Post Dialysis 14 6 - 19 mg/dL [facility] 06/21/2023 06/22/2023 5:1 7 AM CDT Narrative [facility] - 06/22/2023 Unless otherwise specified, test(s) performed at: [facility], [address] [place] [address], [place] [address] FOREST FIRE MANAGEMENT OFFICER: Alhaji Noguera M.D., Ph.D For any questions, please call customer service at FREQUENCY:MONTHLY Resulting Agency Comment Specimen source: Plasma Ernie Pompa MD LAB BLOOD ORDERABLES Performing Organization Address [facility] de Phone Number [facility] See order comments or contact performing lab Unknown, [place] * IMMUNO CHEMISTRY (06/21/2023) Only the most recent of3 resultswithin the time period is included. [facility] Hep B Surface Ag Negative Negative [facility] 06/21/2023 06/22/2023 5:[address] [facility] - 06/22/2023 Unless otherwise specified, test(s) performed at: [facility], [address] [place] [address], [place] [address] FOREST FIRE MANAGEMENT OFFICER: Alhaji Noguera M.D., Ph.D For any questions, please call customer service at FREQUENCY:MONTHLY Resulting Agency Comment Specimen source: Plasma Ernie Pompa MD LAB BLOOD ORDERABLES Performing Organization Address [facility] de Phone Number [facility] See order comments or contact performing lab Unknown, [place] * (ABNORMAL) [facility] (06/21/2023) Only the most recent of7 resultswithin the time period is included. BUN 74(H) 6 - 19 mg/dL [facility] [...] 06/22/2023 Unless otherwise specified, test(s) performed at: [facility], [address] [place] [address], [place] [address] FOREST FIRE MANAGEMENT OFFICER: Alhaji Noguera M.D., Ph.D For any questions, please call customer service at FREQUENCY:MONTHLY Resulting Agency Comment Specimen source: Serum Ernie Pompa MD LAB BLOOD ORDERABLES [facility] See order comments or contact performing lab Unknown, [place] * [facility] Results (06/21/2023) Only the most recent of3 resultswithin the time period is included. WSTDKT/V 2.7 [facility] eNPCR 1.39 [facility] spKt/V Gotch 2.09 [facility] eKt/V ([facility]) 1.74 [facility] nPCR_HD 1.48 Knowledge [facility] PCR 85.02 [facility] eKdrt/V 1.81 [facility] eKt/V Gotch 1.81 Knowled e Center spKt/V (Daugirdas II) 1.99 [facility] 06/21/2023 06/21/2023 [facility] Ordering Provider LAB BLOOD ORDERABLE S [facility] Contact Performing lab Unknown, [place] from Last 3 Months
--- OUTSIDE RECORDS SUMMARY | 2023-07-18 14:38 | XMS_ITS | Encounter Summary ---
Author Name Unknown Organization [facility] [place] Address [address] [facility] [address] [place] [address] Care Team Providers Care Credit Rating Checker Name Role Phone Unavailable Primary Care Provider Unavailabl e Encounter Details Date Type Department Care Team Description 07/12/2023 Orders Only [facility] [place] [address] [facility] [address] [place] [address] Ernie Pompa MD [address] [place] [address] Social History Tobacco Use Types [...] Date/Time Associated Diagnosis Comments HEMATOLOGY Routine 07/12/2023 documented in this encounter Results * (ABNORMAL) HEMATOLOGY (07/12/2023) Hemoglobin 10.2(L) 14.0 - 18.0 g/dL [facility] Hemoglobin x 3 30.6(L) 42.0 - 54.0 % [facility] 07/12/2023 07/13/2023 7:0 8 AM CDT Narrative [facility] - 07/13/2023 Unless otherwise specified, test(s) performed at: [facility], [address] [place] [address], [place] [address] ORDNANCE ENGINEER: Alhaji Noguera M.D., Ph.D For any questions, please call customer service at FREQUENCY:OTHER Resulting Agency Comment Specimen source: Blood Ernie Pompa MD LAB BLOOD ORDERABLES [facility] See order comments or contact performing lab Unknown, [place] documented in this encounter Visit Diagnoses Not on filedocumented in this encounter
--- OUTSIDE RECORDS SUMMARY | 2023-07-18 14:38 | XMS_ITS | Clinical Summary ---
Author Name Unknown Organization [facility] Address [place], [place] [address] Care Team Providers Care Floater Operator Name Role Phone Liban Leos MD Primary Care Provider Tanya Paz PharmD Unavailable + [phone] Allergies Active Allergy Reactions Criticality Noted Date [...] % nasal solutionIndication s:Post-nasal drip Inhale 1 [place] into affected nostril(s) every hour if needed [...] Coronary atherosclerosis of unspecified type of vessel, eyak or graft 04/04/2007 Overview: Angiogram/PCI 04/04/07: LAD: [...] repeat EGD in 3 years EGD 03/2017 [facility], repeat EGD in 3 years EGD 06/2021 No [facility], repeat EGD in 5 years depending upon patient's overall health. Tachycardia 10/06/2008 07/17/2020 Dyspnea 10/06/2008 02/15/2022 Atrial flutter 10/06/2008 12/15/2020 Overview: - New onset 09/25, s/p DCCV 10/07/08. Acute renal insufficiency 10/06/2008 Hyponatremia 09/16/2008 04/17/2019 Postoperative Sternal Wound Infection 09/16/2008 07/17/2020 Morbid obesity 09/03/2008 05/18/2021 Iron deficiency anemia, unspecified 08/13/2008 07/17/2020 Overview: Admitted to [facility] 08/12/08 with Hgb 5.6, ferritin 5. Negative colonoscopy. 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 Reportedly negative outpatient capsule study. Chest pain, unspecified 06/20 AORTIC VALVE DISORDER: Moderate to severe 07/17/2020 Overview: -Echo 03/29/07: Mild concentric LVH with normal wall motion. EF 55-60%. Marked KIERAN. Mod . CLAUS 1.3 cm sq. Mean gradient 24 mmHg. Mild AK, TI. Mild pulmonary hypertension. RVSP 39 mmHg +RAP. -S/P AVR 09/03/2008 Acute CHF 07/26/2010 Overview: -Mar 2007 admission to [facility] CKD (chronic kidney disease) stage 5, GFR less than 15 ml/min 02/15/2022 End stage renal disease 06/20 Mitral stenosis 07/17/2020 Overview: Moderate to severe by echo 02/2019 Encounters Date Type Department Care Team Description 06/20/2023 10:30 AM CDT Ancillary Procedure [facility] [address] [facility] [address] 06/20/2023 9:15 AM CDT Office Visit [facility] [address] [place] [address] Liban Leos MD Medicare ANNUAL (subsequent) Visit (77 year old) 06/20/2023 Travel 06/12/2023 1:40 PM CDT Office Visit [facility] [address] [place] [address] Liban Leos MD Follow Up (Wound on bottom of right foot) 06/12/2023 Travel 06/09/2023 2:30 PM CDT Office Visit [facility] [address] [place] [address] Liban Leos MD Foot Problem (Wound on bottom of right foot, 3 days) 06/09/2023 Travel 06/09/[address] [facility] [address] [place] [address] Liban Leos MD Wound clinic referral 05/21/[address] [facility] [address] [place] [address] Liban Leos MD Refill Request (Metoprolol Succinate, Allopurinol, Pantoprazole, ) from Last 3 Months Immunizations Name Administration Dates Next Due AMB INFLUENZA IIV3 (AGE 65+ YRS) PF (Flu Clinic Only) 12/28/2018 COVID-19 Vaccine Spikevax (M oderna 50mcg/0.5mL) 12YO+ [id number] Formula PF 06/20/2023,01/07/2023 COVID-19 vaccine (Moderna 100mcg/0.5mL) [...] 10:30 AM CDT Office Visit [facility] [address] [place] [address] Arya Ascencio MD [address] [facility] [address] [place] [address] 11/21/2023 9:15 AM CDT Orders Only [facility] [address] [place] [address] Lab, [place] 11/21/2023 9:40 AM CDT Office Visit [facility] [address] [place] [address] Liban Leos MD [address] [place] [address] Health Maintenance Due Date Last Done Comments [...] history exists Medical Devices Implanted Type Area Sports Physician Device Identifier Shelf Expiration Date Model / Serial / Lot An Hh [id number] Implanted:Qty: 1 on 09/03/2008 at Explanted:at (Quantity not on file) Cv Implants N/A: Aortic Valve Zanbato Jaclyn 07/13/2010 [id number] # / [id number] / Procedures Procedure Name Priority Date/Time Associated [...] 6.1 <=6.4 % 06/09/2023 2:34 PM CDT [facility] Blood BLOOD SPECIMEN / Unknown Venipuncture / Unknown 06/09/2023 2:20 PM CDT 06/09/2023 2:20 PM CDT Narrative [facility] - 06/09/2023 2:34 PM [...] Anemias, Splenectomy ? Liban Leos MD CHEMISTRY [facility] [address] [place] [address], * ANTI HCV (11/30/2021 12:45 PM CDT) HEPATITIS C ANTIBODY Non-React joe Non-React joe 12/03/2021 4:28 PM CDT [facility] Comment:Antibodies to HCV no t detected; does not exclude the possibility of exposure to HCV. Blood BLOOD SPECIMEN / Unknown Venipuncture / Unknown 11/30/2021 12:45 PM CDT 11/30/2021 1:44 PM CDT Liban Leos MD SEND OUTS [facility] [address] [place] [address], [place] from Last 3 Months or Most [...] 1:41 AM 10/20/2008 1:45 PM Care Teams Floater Operator Relationship Specialty Start Date End Date Liban Leos MD [address] [place] [address] PCP - General Family Practice 07/17/20 Tanya Paz, PharmD [address] [address] Pharmacist Medication Management Pharmacology 05/31/22
--- OUTSIDE RECORDS SUMMARY | 2023-07-18 14:38 | XMS_ITS | Encounter Summary ---
Author Name Unknown Organization [facility] [place] Address [address] [place] [address] Care Team Providers Care Finishing Frame Runner Name Role Phone Unavailable Primary Care Provider Unavailabl e Encounter Details Date Type Department Care Team Description 06/28/2023 Treatment [facility] [place] [address] [place] [address] Randolph Woodruff, VICE PRESIDENT OF MARKETING-PRODUCT SAFETY TECHNICAL ASSISTANT [address] [place] [phone] Social History Tobacco Use Types Packs/Day Years Used Date Smoking Tobacco: Unknown Comments:Smoking History Inf o:Patient not screened Sex and Gender Information Value Date Recorded Sex Assigned at Not on file Gender Identity Not on file Sexual Orientation Not on file documented as of this encounter Miscellaneous Notes * Dialysis Note - Randolph Woodruff, VICE PRESIDENT OF MARKETING-PRODUCT SAFETY TECHNICAL ASSISTANT - 06/28/2023 9:38 AM CDT Date: Jun 28, 2023 Patient Name: Shaun Ocampo : 1945 Chart #: [id number] Sex: M This patient was personally seen [...] AM ) BP (sit): 127/58 AP(-) / SUPERVISOR WATERWORKS: 212/166 Pulse: 60 Chairside data as of [...] Every 4 weeks During Dialysis 03/15/2023 03/13/2024 HEAT SEAL OPERATOR: Ernie Pompa MD LOCATION: [phone] SCHEDULE: -- 1st Shift EDW: kg. DIALYZER: HD DURATION: NEEDLE SIZE: ANTICOAG: BATH: QB: ml/min QD: ml/min Subjective Tolerating dialysis well. 06/11: He is doing well and feels quite well the last 2 weeks. A little better with fluid gains and reaching EDW. Has been using stationary cycle at home 1-2 times per day 15-30 min each. No new symptoms. Advanced Practitioner Subjective PATROL OFFICER 06/28/2023: Spoke with patient on dialysis. Doing well. Denies SOB, chest pain, or dizziness. IDWGs have slightly improved. AVF functional; no reported issues. BP stable. Continue to challenge EDW. PATROL OFFICER 06/02/2023: Seen on dialysis. Fluid gains have been improved. Achieving EDW. His ongoing cough has subsided. Needs ongoing encouragement to watch gains. No breathing issues. Denies chest pain or cramping. His AVF has been working well. No changes today. PATROL OFFICER 04/21/2023: Patient seen on dialysis. Continues to [...] prescription. Vascular Access Assessment Type of access: [id number] Surgeon - Lary GARDNER 08/2021: fistulagram at [facility] with angioplasty of [...] at goal. Intact PTH is at goal. Professional Sports Scout will adjust binders and vitamin D per [...]
--- OUTSIDE RECORDS SUMMARY | 2023-07-18 14:38 | XMS_ITS | Encounter Summary ---
Author Name Unknown Organization [facility] [place] [place] Address [address] [facility] [address] [place] [address] Care Team Providers Care Inspector Motor Vehicles Name Role Phone Unavailable Primary Care Provider Unavailabl e Encounter Details Date Type Department Care Team Description 06/14/2023 Orders Only [facility] [place] [address] [facility] [address] [place] [address] Ernie Pompa MD [address] [place] [address] Social History Tobacco Use Types [...] 06/15/2023 Unless otherwise specified, test(s) performed at: [facility], [address] [place] [address], [place] [address] BREAKING MACHINE OPERATOR: Alhaji Noguera M.D., Ph.D For any questions, please call customer service at FREQUENCY:OTHER Resulting Agency Comment Specimen source: Blood Ernie Pompa MD LAB BLOOD ORDERABLES [facility] documented in this encounter Visit Diagnoses Not on filedocumented in this encounter
--- OUTSIDE RECORDS SUMMARY | 2023-07-18 14:38 | XMS_ITS | Referral Summary ---
Author Name Unknown Organization [facility] Address [address] [place] [address] Care Team Providers Care Loom Mechanic Name Role Phone Liban Leos Primary Care Provider [phone] Ernie Pompa MD Unavailable [phone] Allergies Active Allergy Reactions Criticality Noted Date [...] Active fluticasone (FLONASE) 50 MCG/ACT nasal spray [place] 1 spray in nostril daily 12/15/2020 Active [...] and gender (Brigette et al., NEJM, DOI: 10.1056/[id number]) Blood STRUCTURE OF RIGHT UPPER LIMB / Unknown Venipuncture / Unknown 01/18/2022 5:13 AM CDT 01/18/2022 7:54 AM CDT Ashtyn Vogt MD LAB - BLOOD ORDERABL ES [facility] [place] [facility] [address] [facility] [place] [address], [facility] [phone] * (ABNORMAL) CBC with platelets (01/18/2022 5:13 AM CDT) [facility] WBC Count 7.2 4.0 - 11.0 10e3/uL [...] LAB - BLOOD ORDERABL ES [facility] [place] [facility] [address] [facility] [place] [address], [facility] [phone] * (ABNORMAL) Comprehensive metabolic panel (12/23/2021 7:51 [...] and gender (Brigette et al., NEJM, DOI: 10.1056/[id number]) Blood STRUCTURE OF RIGHT UPPER LIMB / Unknown Venipuncture / Unknown 12/23/2021 7:51 PM CDT 12/23/2021 7:56 PM CDT Nakita Pruitt MD LAB - BLOOD ORDERABL ES [facility] [address] Lab (1st floor, no room number) [place] [address], [facility] [phone] from Last 3 Months or Most Recently Relevant to Health Maintenance Advance Directives For more information, please contact: [phone] * Full Code (Latest Code Status on [...] patie nt/ legal decision maker Care Teams Loom Mechanic Relationship Specialty Start Date End Date Liban Leos [address] [place] [address] PCP - General Family Medicine 10/08/21 Ernie Pompa MD [address] [place] [address] Nephrology 10/08/21
--- OUTSIDE RECORDS SUMMARY | 2023-07-18 14:38 | XMS_ITS | Encounter Summary ---
Author Name Unknown Organization [facility] [place] Address [address] [facility] [facility] [address] [place] [address] Care Team Providers Care Marketing Operations Manager Name Role Phone Unavailable Primary Care Provider Unavailabl e Encounter Details Date Type Department Care Team Description 07/05/2023 Orders Only [facility] [place] [address] [facility] [address] [place] [address] Ernie Pompa MD [address] [place] [address] Social History Tobacco Use Types [...] Priority Date/Time Associated Diagnosis Comments HEMATOLOGY Routine 07/05/2023 documented in this encounter Results * (ABNORMAL) HEMATOLOGY (07/05/2023) Hemoglobin 9.5(L) 14.0 - 18.0 g/dL [facility] Hemoglobin x 3 28.5(L) 42.0 - 54.0 % [facility] 07/05/2023 07/06/2023 4:5 6 AM CDT Narrative [facility] - 07/06/2023 Unless otherwise specified, test(s) performed at: [facility], [address] [place] [address], [place] [address] INGOT BUGGY OPERATOR: Alhaji Noguera M.D., Ph.D For any questions, please call customer service at FREQUENCY:OTHER Resulting Agency Comment Specimen source: Blood Ernie Pompa MD LAB BLOOD ORDERABLES [facility] See order comments or contact performing lab Unknown, [place] documented in this encounter Visit Diagnoses Not on filedocumented in this encounter
--- OUTSIDE RECORDS SUMMARY | 2023-07-18 14:38 | XMS_ITS | Encounter Summary ---
Author Name Unknown Organization [facility] [place] Address [address] [place] [address] Care Team Providers Care Dictating Transcribing Machine Servicer Name Role Phone Unavailable Primary Care Provider Unavailabl e Encounter Details Date Type Department Care Team Description 06/02/2023 Treatment [facility] [place] [address] [place] [address] Randolph Woodruff, INSURANCE RISK ANALYST-PULP COOKER [address] [place] [address] Social History Tobacco Use Types Packs/Day Years Used Date Smoking Tobacco: Unknown Comments:Smoking History Inf o:Patient not screened Sex and Gender Information Value Date Recorded Sex Assigned at Not on file Gender Identity Not on file Sexual Orientation Not on file documented as of this encounter Miscellaneous Notes * Dialysis Note - Randolph Woodruff APRN-PULP COOKER - 06/02/2023 10:45 AM CDT Date: Jun 02, 2023 Patient Name: Shaun Ocampo : 1945 Chart #: [id number] Sex: M This patient was personally seen [...] AM ) BP (sit): 131/59 AP(-) / ACADEMIC PROGRAM SPECIALIST: 218/164 Pulse: 56 Chairside data as of [...] Every 4 weeks During Dialysis 03/15/2023 03/13/2024 COMMUNICATION LECTURER: Ernie Pompa MD LOCATION: [facility] [phone] SCHEDULE: -- 1st Shift EDW: kg. DIALYZER: [...] new symptoms or concerns. Advanced Practitioner Subjective BUSINESS TAXES SPECIALIST 06/02/2023: Seen on dialysis. Fluid gains have been improved. Achieving EDW. His ongoing cough has subsided. Needs ongoing encouragement to watch gains. No breathing issues. Denies chest pain or cramping. His AVF has been working well. No changes today. BUSINESS TAXES SPECIALIST 04/21/2023: Patient seen on dialysis. Continues to have higher fluid gains. He does have an occasional cough. Denies SOB, chest pain, or dizziness. Hopeful he can get to EDW this week. Offered extrarun but wants to see how things go. Has appt on Monday, so that would not work. BP stable. Continue to challenge EDW. BUSINESS TAXES SPECIALIST 03/24/2023: Spoke with patient on dialysis. Denies SOB, chest pain, or dizziness. Noted to have a cough; no fever. Has not been leaving above EDW. High fluid gains. Agrees to extra run at [place] Monday or Monday. CN to coordinate. AVF [...] prescription. Vascular Access Assessment Type of access: [id number] Surgeon - Lary KUMARW 08/2021: [place] [facility] [place] of stenosis completed Anemia Assessment [...] at goal. Intact PTH is at goal. Tool Specialist will adjust binders and vitamin D [...]
--- OUTSIDE RECORDS SUMMARY | 2023-07-18 14:38 | XMS_ITS | Encounter Summary ---
Author Name Unknown Organization [facility] [place] Address [address] [place] [address] Care Team Providers Care Bait Digger Name Role Phone Unavailable Primary Care Provider Unavailabl e Encounter Details Date Type Department Care Team Description 06/21/2023 Orders Only [facility] [place] [address] [place] [address] Ernie Pompa MD [address] [place] [address] Social History Tobacco Use Types [...] [facility] Lab Results (06/21/2023) WSTDKT/V 2.7 [facility] eNPCR 1.39 [facility] spKt/V Gotch 2.09 [facility] eKt/V ([place]) 1.74 [facility] nPCR_HD 1.48 [facility] PCR 85.02 [facility] eKdrt/V 1.81 [facility] eKt/V Gotch 1.81 [facility] spKt/V (Daugirdas II) 1.99 [facility] 06/21/2023 06/21/2023 Kameron Ordering Provider LAB BLOOD ORDERABLE S Performing Organization Address City/[facility]/ZIP Co de Phone Number [facility] Contact Performing lab Unknown, [place] * (ABNORMAL) HD KINETICS (06/21/2023) % Urea Reduction 81(H) 65 - 80 % [facility] 06/21/2023 06/22/2023 5:1 7 AM CDT Narrative [facility] - 06/22/2023 Unless otherwise specified, test(s) performed at: [facility], [address] [place] [address], [place] [address] ASSESSMENT CONSULTANT: Alhaji Noguera M.D., Ph.D For any questions, please call customer service at FREQUENCY:MONTHLY Resulting Agency Comment Specimen source: Plasma Ernie Pompa MD LAB BLOOD ORDERABLES Performing Organization Address [facility] de Phone Number [facility] See order [...] 06/22/2023 Unless otherwise specified, test(s) performed at: [facility], [address] [place] [address], [place] [address] ASSESSMENT CONSULTANT: Alhaji Noguera M.D., Ph.D For any questions, please call customer service at FREQUENCY:MONTHLY Resulting Agency Comment Specimen source: Serum Ernie Pompa MD LAB BLOOD ORDERABLES [facility] See order comments or contact [...] 06/21/2023 06/22/2023 7:4 1 AM CDT Narrative [facility] - 06/22/2023 Unless otherwise specified, test(s) performed at: [facility], [address] [place] [address], [place] [address] ASSESSMENT CONSULTANT: Alhaji Noguera M.D., Ph.D For any questions, please call customer service at FREQUENCY:MONTHLY Resulting Agency Comment Specimen source: Blood Ernie Pompa MD LAB BLOOD ORDERABLES Performing Organization Address City/[facility]/ZIP Co de Phone Number [facility] See order comments or contact performing lab Unknown, [place] * IMMUNO CHEMISTRY (06/21/2023) Hep B Surface Ag Negative Negative [facility] 06/21/2023 06/22/2023 5:5 0 AM CDT Narrative [facility] - 06/22/2023 Unless otherwise specified, test(s) performed at: [facility], [address] [place] [address], [place] [address] ASSESSMENT CONSULTANT: Alhaji Noguera M.D., Ph.D For any questions, please call customer service at FREQUENCY:MONTHLY Resulting Agency Comment Specimen source: Plasma Ernie Pompa MD LAB BLOOD ORDERABLES Performing Organization Address City/[facility] Co de Phone Number [facility] See order comments or contact performing lab Unknown, [place] * POST CHEMISTRY (06/21/2023) BUN Post Dialysis 14 6 - 19 mg/dL [facility] 06/21/2023 06/22/2023 5:1 7 AM CDT Narrative [facility] - 06/22/2023 Unless otherwise specified, test(s) performed at: [facility], [address] [place] [address], [place] [address] ASSESSMENT CONSULTANT: Alhaji Noguera M.D., Ph.D For any questions, please call customer service at FREQUENCY:MONTHLY Resulting Agency Comment Specimen source: Plasma Ernie Pompa MD LAB BLOOD ORDERABLES [facility] See order comments or contact performing lab Unknown, [place] documented in this encounter Visit Diagnoses Not on filedocumented in this encounter
--- OUTSIDE RECORDS SUMMARY | 2023-07-18 14:38 | XMS_ITS | Encounter Summary ---
Author Name Unknown Organization [facility] [place] Address [address] [place] [address] Care Team Providers Care Senior Quality Control Inspector Name Role Phone Unavailable Primary Care Provider Unavailabl e Encounter Details Date Type Department Care Team Description 06/12/2023 Treatment [facility] [place] [address] [place] [address] Ernie Pompa MD [address] [place] [address] Social History Tobacco Use Types [...] Name: Shaun Ocampo : 1945 Chart #: [id number] Sex: M This patient was personally seen [...] AM ) BP (sit): 115/63 AP(-) / EXPEDITIONARY FIGHTING VEHICLE CREWMAN: 214/164 Pulse: 54 Chairside data as of [...] Every 4 weeks During Dialysis 03/15/2023 03/13/2024 QUALITY SYSTEM MANAGER: Ernie Pompa MD LOCATION: [address] SCHEDULE: -- 1st Shift EDW: kg. [...] each. No new symptoms. Advanced Practitioner Subjective HOME MORTGAGE DISCLOSURE ACT SPECIALIST 06/02/2023: Seen on dialysis. Fluid gains have been improved. Achieving EDW. His ongoing cough has subsided. Needs ongoing encouragement to watch gains. No breathing issues. Denies chest pain or cramping. His AVF has been working well. No changes today. HOME MORTGAGE DISCLOSURE ACT SPECIALIST 04/21/2023: Patient seen on dialysis. Continues to have higher fluid gains. He does have an occasional cough. Denies SOB, chest pain, or dizziness. Hopeful he can get to EDW this week. Offered extrarun but wants to see how things go. Has appt on Monday, so that would not work. BP stable. Continue to challenge EDW. HOME MORTGAGE DISCLOSURE ACT SPECIALIST 03/24/2023: Spoke with patient on dialysis. Denies SOB, chest pain, or dizziness. Noted to have a cough; no fever. Has not been leaving above EDW. High fluid gains. Agrees to extra run at [facility] Monday or Monday. CN to coordinate. AVF [...] prescription. Vascular Access Assessment Type of access: [id number]/2019 Surgeon - Lary GARDNER 08/2021: fistulagram at [...] at goal. Intact PTH is at goal. Residential Program Coordinator will adjust binders and vitamin D [...]
--- OUTSIDE RECORDS SUMMARY | 2023-07-18 14:39 | XMS_ITS | Encounter Summary ---
Author Name Unknown Organization [facility] [place] Address [address] [facility] [address] [place] [address] Care Team Providers Care Coal Shoveler Name Role Phone Unavailable Primary Care Provider Unavailabl e Encounter Details Date Type Department Care Team Description 05/10/2023 Orders Only [facility] [place] [address] [facility] [address] [place] [address] Ernie Pompa MD [address] [place] [address] Social History Tobacco Use Types [...] [facility] 05/10/2023 05/11/2023 5:0 2 AM OPEN TENTER OPERATOR Narrative [facility] - 05/11/2023 Unless otherwise specified, test(s) performed at: [facility], [address] [place] [address], [place] [address] ARBORIST REPRESENTATIVE: Alhaji Noguera M.D., Ph.D For any questions, please call customer service at FREQUENCY:OTHER Resulting Agency Comment Specimen source: Blood Ernie Pompa MD LAB BLOOD ORDERABLES Performing Organization Address City/State/[facility] Co de Phone Number [facility] documented in this encounter Visit Diagnoses Not on filedocumented in this encounter
--- OUTSIDE RECORDS SUMMARY | 2023-07-18 14:39 | XMS_ITS | Encounter Summary ---
Author Name Unknown Organization [facility] [place] Address [address] [place] [address] Care Team Providers Care Seismology Teacher Name Role Phone Unavailable Primary Care Provider Unavailabl e Encounter Details Date Type Department Care Team Description 04/21/2023 Treatment [facility] [place] [address] [facility] [facility] [facility] [address] [address] [place] [address] Randolph Woodruff, ELECTRIC METER TECHNICIAN-FOOD AND BEVERAGE MANAGER [address] [place] [address] Social History Tobacco Use Types Packs/Day Years Used Date Smoking Tobacco: Unknown Comments:Smoking History Inf o:Patient not screened Sex and Gender Information Value Date Recorded Sex Assigned at Not on file Gender Identity Not on file Sexual Orientation Not on file documented as of this encounter Miscellaneous Notes * Dialysis Note - Randolph Woodruff APRN-FOOD AND BEVERAGE MANAGER - 04/21/2023 10:41 AM SWITCHBOARD OPERATOR RECEPTIONIST Date: Apr 21, 2023 Patient Name: Shaun Ocampo : 1945 Chart #: [id number] Sex: M This patient was personally seen [...] AM ) BP (sit): 93/52 AP(-) / CATERING ASSOCIATE: 213/182 Pulse: 71 Chairside data as of [...] Every 4 weeks During Dialysis 03/15/2023 03/13/2024 CORPORATE QUALITY ENGINEER: Ernie Pompa MD LOCATION: [place] [phone] SCHEDULE: -- 1st Shift EDW: kg. DIALYZER: HD DURATION: NEEDLE SIZE: ANTICOAG: BATH: QB: ml/min QD: ml/min Subjective Tolerating dialysis well. He had an extra treatment earlier in month at [place], since then IDWG's improved and has been getting to dry weight more conistently. Has chronic cough. No new symptoms. Small open spot on foot that he is bandaging. Advanced Practitioner Subjective COURT ORDERLY 04/21/2023: Patient seen on dialysis. Continues to have higher fluid gains. He does have an occasional cough. Denies SOB, chest pain, or dizziness. Hopeful he can get to EDW this week. Offered extrarun but wants to see how things go. Has appt on Monday, so that would not work. BP stable. Continue to challenge EDW. COURT ORDERLY 03/24/2023: Spoke with patient on dialysis. Denies SOB, chest pain, or dizziness. Noted to have a cough; no fever. Has not been leaving above EDW. High fluid gains. Agrees to extra run at [place] Monday or Monday. CN to coordinate. AVF [...] prescription. Vascular Access Assessment Type of access: [id number] Surgeon - Lary GARDNER 08/2021: [facility] [facility] [place] angioplasty of stenosis completed Anemia Assessment [...] at goal. Intact PTH is at goal. Machinist Class B will adjust binders and vitamin D per [...]
--- OUTSIDE RECORDS SUMMARY | 2023-07-18 14:39 | XMS_ITS | Encounter Summary ---
Author Name Unknown Organization [facility] [place] Address [address] [facility] [address] [facility] [address] [place] [address] Care Team Providers Care Casing Worker Name Role Phone Unavailable Primary Care Provider Unavailabl e Encounter Details Date Type Department Care Team Description 04/26/2023 Orders Only [facility] [place] [address] [place] [address] Ernie Pompa MD [address] [place] [address] Social History Tobacco Use Types [...] [facility] 04/26/2023 04/27/2023 6:2 1 PM ELECTRIC ORGAN ASSEMBLER Narrative Resulting Agency Comment Specimen source: Plasma Ernie Pompa MD LAB BLOOD ORDERABLES Performing Organization Address [facility] Co de Phone Number [facility] * (ABNORMAL) [facility] (04/26/2023) PTH 593(H) 16 - 80 pg/mL [facility] 04/26/2023 04/27/2023 6:2 1 PM ELECTRIC ORGAN ASSEMBLER Narrative [facility] - 04/27/2023 Unless otherwise specified, test(s) performed at: [facility], [address] [place] [address], [place] [address] HVAC INSTALLER: Alhaji Noguera M.D., Ph.D For any questions, please call customer service at FREQUENCY:MONTHLY Resulting Agency Comment Specimen source: Plasma Ernie Pompa MD LAB BLOOD ORDERABLES Performing Organization Address City/[facility]/ZIP Co de Phone Number [facility] * (ABNORMAL) HD KINETICS (04/26/2023) % Urea Reduction 81(H) 65 - 80 % [facility] 04/26/2023 04/27/2023 1:3 1 PM ELECTRIC ORGAN ASSEMBLER Narrative Resulting Agency Comment Specimen source: Plasma Ernie Pompa MD LAB BLOOD ORDERABLES [facility] * POST CHEMISTRY (04/26/2023) BUN Post Dialysis 11 6 - 19 mg/dL [facility] 04/26/2023 04/27/2023 1:3 1 PM ELECTRIC ORGAN ASSEMBLER Narrative [facility] - 04/27/2023 Unless otherwise specified, test(s) performed at: [facility], [address] [place] [address], [place] [address] HVAC INSTALLER: Alhaji Noguera M.D., Ph.D For any questions, [...] [facility] 04/26/2023 04/27/2023 2:1 4 PM ELECTRIC ORGAN ASSEMBLER Narrative [facility] - 04/27/2023 Unless otherwise specified, test(s) performed at: [facility], [address] [place] [address], [place] [address] HVAC INSTALLER: Alhaji Noguera M.D., Ph.D For any questions, please call customer service at FREQUENCY:MONTHLY Resulting Agency Comment Specimen source: Blood Ernie Pompa MD LAB BLOOD ORDERABLES Performing Organization Address City/[facility]/ZIP Co de Phone Number [facility] [...] A [facility] 04/26/2023 04/27/2023 12: 12 PM ELECTRIC ORGAN ASSEMBLER Narrative [facility] - 04/27/2023 Unless otherwise specified, test(s) performed at: [facility], [address] [place] [address], [place] [address] HVAC INSTALLER: Alhaji Noguera M.D., Ph.D For any questions, please call customer service at FREQUENCY:MONTHLY Resulting Agency Comment Specimen source: Serum Ernie Pompa MD LAB BLOOD ORDERABLES [facility] documented in this encounter Visit Diagnoses Not on filedocumented in this encounter
--- OUTSIDE RECORDS SUMMARY | 2023-07-18 14:39 | XMS_ITS | Encounter Summary ---
Author Name Unknown Organization [facility] [place] Address [address] [facility] [address] [place] [address] Care Team Providers Care Jewel Inspector Name Role Phone Unavailable Primary Care Provider Unavailabl e Encounter Details Date Type Department Care Team Description 05/17/2023 Orders Only [facility] [place] [address] [facility] [address] [place] [address] Ernie Pompa MD [address] [place] [address] Social History Tobacco Use Types [...] [facility] 05/17/2023 05/18/2023 3:0 2 AM INFUSION THERAPY NURSE Narrative [facility] - 05/18/2023 Unless otherwise specified, test(s) performed at: [facility], [address] [place] [address], [place] [address] LEGAL SUPPORT SPECIALIST: Alhaji Noguera M.D., Ph.D For any questions, please call customer service at FREQUENCY:OTHER Resulting Agency Comment Specimen source: Blood Ernie Pompa MD LAB BLOOD ORDERABLES Performing Organization Address City/State/[facility] Co de Phone Number [facility] documented in this encounter Visit Diagnoses Not on filedocumented in this encounter
--- OUTSIDE RECORDS SUMMARY | 2023-07-18 14:39 | XMS_ITS | Encounter Summary ---
Author Name Unknown Organization [facility] [place] [place] Address [address] [facility] [address] [place] [address] Care Team Providers Care Vocational Teacher Name Role Phone Unavailable Primary Care Provider Unavailabl e Encounter Details Date Type Department Care Team Description 05/03/2023 Orders Only [facility] [place] [address] [facility] [address] [place] [address] Ernie Pompa MD [address] [place] [address] Social History Tobacco Use Types [...] [facility] 05/03/2023 05/04/2023 12: 38 PM CENTRIFUGAL SCREEN TENDER Narrative [facility] - 05/04/2023 Unless otherwise specified, test(s) performed at: [facility], [address] [place] [address], [place] [address] REPRODUCTION TECHNICIAN: Alhaji Noguera M.D., Ph.D For any questions, please call customer service at FREQUENCY:OTHER Resulting Agency Comment Specimen source: Blood Ernie Pompa MD LAB BLOOD ORDERABLES [facility] documented in this encounter Visit Diagnoses Not on filedocumented in this encounter
--- OUTSIDE RECORDS SUMMARY | 2023-07-18 14:39 | XMS_ITS | Encounter Summary ---
Author Name Unknown Organization [facility] [place] Address [address] [address] [facility] [address] [place] [address] Care Team Providers Care Furnace Erector Name Role Phone Unavailable Primary Care Provider Unavailabl e Encounter Details Date Type Department Care Team Description 04/12/2023 Orders Only [facility] [place] [address] [facility] [address] [place] [address] Ernie Pompa MD [address] [place] [address] Social History Tobacco Use Types [...] [facility]RA [facility] 04/12/2023 04/13/2023 8:3 1 PM CONTROL SYSTEM MANAGER Narrative [facility]PS [facility] - 04/13/2023 Unless otherwise specified, test(s) performed at: [facility], [address] [place] [address], [place] [address] SUPERVISOR JOINERS: Alhaji Noguera M.D., Ph.D For any questions, please call customer service at FREQUENCY:OTHER Resulting Agency Comment Specimen source: Blood Ernie Pompa MD LAB BLOOD ORDERABLES Performing Organization Address City/State/[facility] Co de Phone Number [facility] documented in this encounter Visit Diagnoses Not on filedocumented in this encounter
--- OUTSIDE RECORDS SUMMARY | 2023-07-18 14:39 | XMS_ITS | Encounter Summary ---
Author Name Unknown Organization [facility] [place] Address [address] [facility] [facility] [address] [place] [address] Care Team Providers Care Apprentice Pattern Maker Name Role Phone Unavailable Primary Care Provider Unavailabl e Encounter Details Date Type Department Care Team Description 04/19/2023 Orders Only [facility] [place] [address] [facility] [address] [place] [address] Ernie Pompa MD [address] [place] [address] Social History Tobacco Use Types [...] SPECTRA [facility] 04/19/2023 04/20/2023 6:4 9 AM APPEALS RN Narrative [facility]PS [facility] - 04/20/2023 Unless otherwise specified, test(s) performed at: [facility], [address] [place] [address], [place] [address] ACQUISITION ADVISOR: Alhaji Noguera M.D., Ph.D For any questions, please call customer service at FREQUENCY:OTHER Resulting Agency Comment Specimen source: Blood Ernie Pompa MD LAB BLOOD ORDERABLES Performing Organization Address City/State/[facility] Co de Phone Number [facility]PS [facility]PECT[facility] documented in this encounter Visit Diagnoses Not on filedocumented in this encounter
--- OUTSIDE RECORDS SUMMARY | 2023-07-18 14:39 | XMS_ITS | Encounter Summary ---
Author Name Unknown Organization [facility] [place] Address [address] [place] [address] Care Team Providers Care Check Inspector Name Role Phone Unavailable Primary Care Provider Unavailabl e Encounter Details Date Type Department Care Team Description 04/10/2023 Treatment [facility] [place] [address] [place] [address] Ernie Pompa MD [address] [place] [address] Social History Tobacco Use Types [...] Name: Shaun Ocampo : 1945 Chart #: [id number] Sex: M This patient was personally seen [...] PM ) BP (sit): 130/60 AP(-) / PUBLIC RELATIONS MANAGER: 188/151 Pulse: 72 Chairside data as of [...] Every 4 weeks During Dialysis 03/15/2023 03/13/2024 DOUGH MOLDER: Ernie Pompa MD LOCATION: [phone] SCHEDULE: M-W-F 2nd Shift EDW: kg. DIALYZER: HD DURATION: NEEDLE SIZE: ANTICOAG: BATH: QB: ml/min QD: ml/min Subjective Tolerating dialysis well. He had an extra treatment earlier in month at [facility], since then IDWG's improved and has been getting to dry weight more conistently. Has chronic cough. No new symptoms. Small open spot on foot that he is bandaging. Advanced Practitioner Subjective MARINE EQUIPMENT PRESERVATION INSPECTOR 03/24/2023: Spoke with patient on dialysis. Denies SOB, chest pain, or dizziness. Noted to have a cough; no fever. Has not been leaving above EDW. High fluid gains. Agrees to extra run at [facility] Monday or Monday. CN to coordinate. AVF functional; no reported issues. BP stable. Areas on legs i mproved. Continue to challenge EDW. MARINE EQUIPMENT PRESERVATION INSPECTOR 03/06/2023: Patient seen on dialysis. Denies SOB, [...] prescription. Vascular Access Assessment Type of access: [id number]/2019 Surgeon - Lary GARDNER 08/2021: fistulagram at [facility] with angioplasty of stenosis completed Anemia Assessment [...] at goal. Intact PTH is at goal. Director Social Welfare will adjust binders and vitamin D per [...]
--- OUTSIDE RECORDS SUMMARY | 2023-07-18 14:39 | XMS_ITS | Encounter Summary ---
Author Name Unknown Organization [facility] Address [address] [place] [address] Care Team Providers Care Ad Operations Intern Name Role Phone Unavailable Primary Care Provider Unavailabl e Encounter Details Date Type Department Care Team Description 05/15/2023 Treatment [facility] [place] [address] [place] [address] Ernie Pompa MD [address] [place] [address] Social History Tobacco Use Types [...] Name: Shaun Ocampo : 1945 Chart #: [id number] Sex: M This patient was personally seen [...] PM ) BP (sit): 116/56 AP(-) / BULK SYSTEM OPERATOR: 5/2 Pulse: 79 Chairside data as of [...] Every 4 weeks During Dialysis 03/15/2023 03/13/2024 ENGINE MECHANIC: Ernie Pompa MD LOCATION: [place] [phone] SCHEDULE: -- 1st Shift EDW: kg. DIALYZER: [...] new symptoms or concerns. Advanced Practitioner Subjective PANEL LAY UP WORKER 04/21/2023: Patient seen on dialysis. Continues to have higher fluid gains. He does have an occasional cough. Denies SOB, chest pain, or dizziness. Hopeful he can get to EDW this week. Offered extrarun but wants to see how things go. Has appt on Monday, so that would not work. BP stable. Continue to challenge EDW. PANEL LAY UP WORKER 03/24/2023: Spoke with patient on dialysis. Denies SOB, chest pain, or dizziness. Noted to have a cough; no fever. Has not been leaving above EDW. High fluid gains. Agrees to extra run at [facility] Monday or Monday. CN to coordinate. AVF [...] prescription. Vascular Access Assessment Type of access: [id number]/2019 Surgeon - Lary GARDNER 08/2021: fistulagram at [facility] with angioplasty of stenosis completed Anemia Assessment [...] at goal. Intact PTH is at goal. Media Relations Specialist will adjust binders and vitamin D [...] see if needs extra UF run at [facility], hopefully can get to EDW by end of week without Ernie Pompa MD [ Signed And locked electronically On 05/15/2023 at 12:27:54 PM ] Transcribed: Ernie Pompa ( 05/15/2023 ) documented in this encounter Plan of Treatment Not on file documented as of this encounter Visit Diagnoses Not on filedocumented in this encounter
--- OUTSIDE RECORDS SUMMARY | 2023-07-18 14:39 | XMS_ITS | Encounter Summary ---
Author Name Unknown Organization [facility] Address [address] [facility] [address] [facility] [address] [place] [address] Care Team Providers Care Special Education Preschool Teacher Name Role Phone Unavailable Primary Care Provider Unavailabl e Encounter Details Date Type Department Care Team Description 04/28/2023 Orders Only [facility] [place] [address] [facility] [address] [place] [address] Ernie Pompa MD [address] [place] [address] Social History Tobacco Use Types [...] SPECTRA [facility] 04/28/2023 04/29/2023 5:2 2 AM NUT GRADER Narrative APS SPECTRA [facility] - 04/29/2023 Unless otherwise specified, test(s) performed at: [facility], [address] [place] [address], [place] [address] FIBREGLASS LAY UP WORKER: Alhaji Noguera M.D., Ph.D For any questions, please call customer service at FREQUENCY:OTHER Resulting Agency Comment Specimen source: Serum Ernie Pompa MD LAB BLOOD ORDERABLES APS SPECTRA [facility] documented in this encounter Visit Diagnoses Not on filedocumented in this encounter
== END 2023-07-18 14:37 | disposition home or self-care (01) ==
LOC: WOUND 14:36
PROVIDERS: PCP Family Medicine; Visit Provider Nurse Practitioner Family
DX: E11.621 Type 2 diabetes mellitus with foot ulcer (principal); I87.2 Venous insufficiency (chronic) (peripheral); L97.518 Non-pressure chronic ulcer of other part of right foot with other specified severity
CPT/HCPCS: G0463

== ENCOUNTER 2024-04-26 17:55 | Emergency (ER) | payer MEDICARE, SELFPAY ==
--- OUTSIDE RECORDS SUMMARY | 2024-04-26 17:56 | XMS_ITS | Clinical Summary ---
Author Organization [facility] Address [address] [place] [address] Care Team Providers Care Bushing Press Operator Name Role Phone Liban Leos Primary Care Provider [phone] Ernie Popma MD Unavailable Allergies Active Allergy Reactions Criticality Noted Date Comments Blood-Group Specific Substance Other (See Comments) 01/15/2019 Patient has a Suggestive Warm Auto antibody. Blood products may be delayed. Draw patient 24 hours prior to transfusion. Draw one red top and two purple top tubes for all type and screen orders. Lisinopril Cough 06/07/2006 Medications allopurinol (ZYLOPRIM) 100 MG tablet Take 100 mg by mouth daily 1 Active atorvastatin (LIPITOR) 20 MG tablet Take 20 mg by mouth daily 1 Active fluticasone (FLONASE) 50 MCG/ACT nasal spray [place] 1 spray in nostril daily 1 Active fluticasone-ran meterol (ADVAIR HFA) 115-21 MCG/ACT inhaler Inhale 2 puffs into the lungs 2 times daily 2 Active metoprolol succinate ER (TOPROL XL) 25 MG 24 hr tablet Take 0.5 tablets by mouth daily 1 Active sevelamer carbonate (RENVELA) 800 MG tablet Take 1 tablet by mouth 3 times daily (with meals) 2 Active multivitamin RENAL (MULTIVITAMIN RENAL) 1 MG capsule Take 1 capsule by mouth daily 1 Active lidocaine-prilo brice (EMLA) 2.5-2.5 % external cream APPLY SMALL AMOUNT TO ACCESS SITE (AVF) 1 TO 2 HOURS BEFORE DIALYSIS. COVER WITH OCCLUSIVE DRESSING (SARAN WRAP) 2 Active pantoprazole (PROTONIX) 40 MG EC tabletIndicatio ns:UGI bleed Take 1 tablet (40 mg) by mouth every morning (before breakfast) 30 tablet 1 2 Active albuterol (PROAIR HFA/PROVENTIL HFA/VENTOLIN HFA) 108 (90 Base) MCG/ACT inhalerIndicati ons:RSV bronchitis Inhale 2 puffs into the lungs every 4 hours as needed for shortness of breath / dyspnea or wheezing 18 g 1 2 Active guaiFENesin (MUCINEX) 600 MG 12 hr tabletIndicatio ns:RSV bronchitis Take 2 tablets (1,200 mg) by mouth 2 times daily 30 tablet 2 Active Active Problems Problem Noted Date Diagnosed Date CKD (chronic kidney disease) stage 5, GFR less than 15 ml/min 10/08/2021 Heart failure with preserved ejection fraction 0 10/08/2021 Overview (10/08/2021): ef 67% 02/2019 UGI bleed 10/08/2021 Primary osteoarthritis of knees, bilateral 06/09 Overview (10/08/2021): May 2021: bilateral cortisone knee injections by [...] 01/21/2015 S/P AVR (aortic valve replacement) 09/04/2008 Overview (10/08/2021): 09/03/08 s/p AVR 25 mm Trinidad Magna Thermafix Pericardial Valve. No Coumadin needed for tissue AVR, recommend Aspirin 325mg daily X1 month, then 81 mg daily indefinitely. Coronary atherosclerosis 04/04/2007 Overview (10/08/2021): Angiogram/PCI 04/04/07: LAD: 70% stenosis mid, 90% distal. LCx: mild luminal irregularities. RCA: dominant, mild luminal irregularities. EF 60%. LV Pressure = 168/24. RA=12; RV=40/15; PW=16; PA=32/17, mean 22. PCI: TAXUS Stent to Mid LAD, PTCA/BMS to Distal LAD. 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 Social History Tobacco Use Types Packs/Day Years Used Date Smoking Tobacco: Never Dip, chew, snus or snuff Smokeless Tobacco: Former Chew Quit: 2000 Adolescent Education Answer Date Record ed Getting School Help Needed Not on file 12/20 Sex and Gender Information Value Date Recorded Sex Assigned at Not on file Legal Sex Male 3:27 AM TELECOMMUNICATIONS REPAIRER Gender Identity Not on file Sexual Orientation Not on file Last Filed Vital Signs Vital Sign Reading Time Taken Comments Blood Pressure 90/51 12/25/2021 1:47 PM CDT Pulse 84 12/25/2021 2:10 PM CDT Temperature 36.8 C (98.2 F) 12/25/2021 1:47 PM CDT Respiratory Rate 20 [...] PHOSPHORUS 1945 TSH W/FREE T4 REFLEX 1945 URIC ACID 1945 URINALYSIS 08/06/1946 ZOSTER IMMUNIZATION (1 of 2) 1996 FALL RISK ASSESSMENT 08/06/2011 DTAP/TDAP/TD IMMUNIZATION (2 - Td or Tdap) 08/29/2018 08/29/2008, 03/20/1997 HEPATITIS B IMMUNIZATION (5 of 5 - Risk Dialysis Recombivax 3-dose series) 10/29/2020 10/30/2019, 07/03/2019, 06/03/2019, Additional history exists RSV VACCINE (1 - 1-dose 75+ series) 2021 MEDICARE ANNUAL WELLNESS VISIT 12/15/2021 12/15/2020 BMP 04/20/2022 01/18/2022, 100 10/2021, 12/24/2021, Additional history exists HEMOGLOBIN 07/18/2022 01/18/2022, 100 09/2021, 12/23/2021, Additional history exists ALT 12/23/2022 12/23/2021, 10/08/2021 CBC 01/18/2023 01/18/2022, 100 09/2021, 12/23/2021, Additional history exists COVID-19 Vaccine ( season) 2023 10/15/2021, 01/29/2021, 05/11/2020, Additional history exists INFLUENZA VACCINE (#1) 2023 , 12/18/2020, 12/04/2019, Additional history exists PHQ-2 (once per calendar year) 2024 Pneumococcal Vaccine: 50+ Years Completed 12/09/2015, 08/21/2014, 10/07/2008 HEPATITIS C SCREENING Completed 11/30/2021 ALK PHOS Completed 12/23/2021, 10/08/2021 HPV IMMUNIZATION [...] and gender (Brigette et al., NEJM, DOI: 10.1056/FCATta1478594) Blood STRUCTURE OF RIGHT UPPER LIMB / Unknown Venipuncture / Unknown 01/18/2022 5:13 AM CDT 01/18/2022 7:54 AM CDT us Ashytn Vogt MD LAB - BLOOD ORDERABLES Final R esult [facility] [address] [facility], [address] [place] [address], [facility] [phone] * (ABNORMAL) CBC with platelets (01/18/2022 5:13 [...] CDT Ashtyn Vogt MD LAB - BLOOD ORDERABLES Final R esult [facility] [address] [facility], [address] [place] [address], [facility] [phone] * (ABNORMAL) Comprehensive metabolic panel (12/23/2021 7:51 [...] and gender (Brigette et al., NEJM, DOI: 10.1056/VTIVyy5126211) Blood STRUCTURE OF RIGHT UPPER LIMB / Unknown Venipuncture / Unknown 12/23/2021 7:51 PM CDT 12/23/2021 7:56 PM CDT us Nakita Pruitt MD LAB - BLOOD ORDERABLES Final R esult [facility] [address] [facility] (1st floor, no room number) [place] [address], [facility] [phone] from Last 3 Months or Most Recently Relevant to Health Maintenance Insurance [employer] [place] [address] Advance Directives For more information, please contact: [phone] * Full Code (Latest Code Status on [...] patie nt/ legal decision maker Care Teams Bushing Press Operator Relationship Specialty Start Date End Date Liban Leos [address] [place] [id number] PCP - General Family Medicine 10/08/21 Ernie Pompa MD [address] [place] [id number] Nephrology 10/08/21
--- OUTSIDE RECORDS SUMMARY | 2024-04-26 17:56 | XMS_ITS | CONTINUITY OF CARE DOCUMENT ---
Author Name User, QIE Address [address] [place] [address] Organization [facility] Address [address] [place] [address] Phone [phone] Care Team Providers Care Talent Acquisition Manager Name Role Phone User, QIE Unavailable Unavailable PROBLEMS Condition Status Date Provider Notes Organizati on HTN, UNSPECIFIED active Chely elizabeth , [address] [facility] [place] CKD STAGE ESRD ON DIALYSIS GFR <15 active Chely Sarahy , [address] [facility] [place] VITAL SIGNS Date Observation Value Provider Organization blood pressure, diastolic 59 mm[Hg] Kenzie Salinas RN RN, [address] [place] [address] [facility] [place] blood pressure, systolic 135 mm[Hg] Kenzie Salinas RN RN, [address] [place] [address] [facility] [place] blood pressure, site #1 Upper arm Kenzie Salinas RN RN, [address] [place] [address] [facility] [place] blood pressure, diastolic, right arm 59 mm[Hg] Kenzie Salinas RN RN, [address] [place] [address] [facility] [place] blood pressure, systolic, right arm 135 mm[Hg] Kenzie Salinas RN RN, [address] [place] [address] [facility] [place] pulse rate 56 /min Kenzie Salinas RN RN, [address] [place] [address] [facility] [place] respiratory rate E&M 16 /min Kenzie reyes RN RN, [address] [place] [address] [address] [facility] temperature E&M 98.3 [degF] Kenzie gibbs RN RN, [address] [place] [address] [facility] Body Mass Index (Ratio) 30.83 kg/m2 Kenzie Salinas RN RN, [address] [place] [address] [address] [facility] weight E&M 208 [lb_av] Kenzie Salinas RN RN, [address] [place] [address] [address] [facility] height E&M 69 [in_i] Kenzie Salinas RN RN, [address] [place] [address] [facility] blood pressure, diastolic 61 mm[Hg] Chelymaureen Nguyenemus , [address] [facility] blood pressure, systolic 109 mm[Hg] Chely Bredemus , [address] [facility] [place] blood pressure, site #1 Upper arm Chely Bredemus , [address] [facility] [place] blood pressure, diastolic, right arm 61 mm[Hg] Chely Bredemus , [address] [facility] blood pressure, systolic, right arm 109 mm[Hg] Chely Bredemus , [address] [facility] respiratory rate E&M 22 /min Chely Bredemus , [address] [facility] pulse rate 84 /min Chely Melidau s , [address] [facility] temperature E&M 98.2 [degF] Chely Bred emus , [address] [facility] [place] Body Mass Index (Ratio) 36.61 kg/m2 Chely Weathers , [address] [facility] [place] weight E&M 247 [lb_av] Chely green , [address] [facility] [place] height E&M 69 [in_i] Chely green , [address] [facility] [place] ALLERGIES Allergy Name Onset Date Reaction Criticality Status Provider Or ganization LISINOPRIL Cough Cough Low Criticality active Chely Weathers , [address] [facility] [place] RESULTS Date Observation Value Provider Organization Refer ence Range Interpretation Location blood glucose, finger stick 195 Kenzie Salinas RN RN, [address] [place] [address] [address] [facility] [place] blood glucose, finger stick 126 Chely Weathers , [facility] [address] [facility] [place] HISTORY OF MEDICATION USE Medication Instructions Status Dates Provider Indications Com ments Organization midodrine 2.5 mg tablet active Kenzie Salinas RN RN, [address] [place] [address] [address] [facility] [place] Plavix 75 mg tablet active Kenzie Salinas RN RN, [address] [place] [address] [address] [facility] [place] sevelamer carbonate 800 mg tablet active Chely Weathers , [facility] [address] [facility] [place] Advair HFA 115-21 mcg/actuation HFA aerosol inhaler active Chely Weathers , [address] [place] [address] [address] [facility] [place] fluticasone propionate 50 mcg/actuation spray,suspension active hCely Weathers , [address] [place] [address] [address] [facility] metoprolol succinate 25 mg tablet extended release 24 hr active Chely Weathers , [address] [place] [address] [address] ipratropium-albu terol 0.5 mg-3 mg(2.5 mg base)/3 mL solution for nebulization USE 3 ML VIA NEBULIZER EVERY 6 HOURS NEEDED FOR SHORTNESS OF BREATH active Chely Montezus , [address] [facility] [place] allopurinol 100 mg tablet active Chely Nguyenemus , [address] [facility] [place] atorvastatin 20 mg tablet active Chelymaureen Nguyenemus , [address] [facility] [place] Aspirin Childrens 81 mg tablet,chewable active Chely Montezus , [address] [facility] [place] Triphrocaps active Chely Montezus , [address] [facility] [place] irbesartan 150 mg tablet active Chely Nguyenemus , [address] [facility] cholecalciferol (vitamin D3) 50 mcg (2,000 unit) tablet active Chely Montezus , [address] [facility] [place] SOCIAL HISTORY Date Observation Value Provider Organization 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 Eligio Sosa MD, MD, [address] [place] [address] [facility] [place] social history reviewed E&M reviewed - no changes required Kenzie Salinas RN RN, [address] [place] [address] [facility] [place] 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 Arturo Colon MD, MD, [address] [place] [address] [facility] [place] social history 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[employer] - Former N ever Smoker Chely Montezus , [address] [facility] [place] smoking/tobacco cessation, patient education and counseling no Chely Montezus , [address] [facility] [place] smoking status Former smoker Chely esqueda , [address] [facility] [place] FAMILY HISTORY Family Member Condition Paternal Grandmother Family History of D iabetes Maternal Grandmother Family History of D iabetes Mother Family History of He art Disease INSURANCE PROVIDERS Payer name Policy type / Coverage type [employer] party ID [employer] S[employer]IOR-MEDICARE [id number] MEDICARE [id number] HISTORY OF PROCEDURES Procedure Date Procedure Name Provider Procedure Notes Status Organization [facility] Eligio Sosa MD, MD, [address] [place] [address] Road [address] [facility] [address] completed [facility] SNOMED-CT: [id number] Current Medications Documented Eligio Sosa MD, MD, [address] [place] [address] Road [address] [facility] [address] completed [facility] INJ HEPARIN SODIUM PER 1000 UNITS Eligio Soas MD, MD, [address] [place] [address] [address] [facility] [address] completed [facility] INFUS NORMAL SALINE SOLUTION 250 CC Eligio Sosa MD, MD, [address] [place] [address] Road [address] [facility] [address] completed [facility] INJECTION MIDAZOLAM HCL PER 1 MG Eligio Sosa MD, MD, [address] [place] [address] Road [address] [facility] [address] completed [facility] INJECTION FENTANYL CITRATE 100MCG Eligio Sosa MD, MD, [address] [place] [address] Road [address] [facility] [address] completed [facility] Wire Eligio Sosa MD, MD, [address] [place] [address] [address] [facility] [address] completed [facility] Balloon Eligio Sosa MD, MD, [address] [place] [address] Road [address] [facility] [address] completed [facility] Omnipaque 300 10ml (Medicare [id number]) Eligio Sosa MD, MD, [address] [place] [address] Road [address] [facility] [address] 25ml completed [facility] Fistulagram, Dialysis Eligio Sosa MD, MD, [address] [place] [address] [address] [facility] [address] completed [facility] Angioplasty within including RS&I Eligio Sosa MD, MD, [address] [place] [address] [address] [facility] [address] completed [facility] Antibiotic-No Order Eligio Sosa MD, MD, [address] [facility] [address] completed [facility] Quailty Measures all negative Eligio Sosa MD, MD, [address] [facility] [address] [facility] [address] completed [facility] SNOMED-CT:HISTORICA L PNEUMOCOCCAL VACCINATION Eligio Sosa MD, MD, [address] [place] [address] [address] [facility] [address] completed [facility] SNOMED-CT:PATIENT ENCOUNTER Eligio Sosa MD, MD, [address] [place] [address] [address] [facility] [address] completed [facility] INJECTION FENTANYL CITRATE 100MCG Arturo Colon MD, MD, [address] [place] [address] [address] [facility] [address] completed [facility] INFUS NORMAL SALINE SOLUTION 250 CC Arturo Colon MD, MD, [address] [place] [address] [address] [facility] [address] completed [facility] Glucose/hemocue Arturo Colon MD, MD, [address] [place] [address] [address] [facility] [address] completed [facility] INJECTION MIDAZOLAM HCL PER 1 MG Arturo Colon MD, MD, [address] [place] [address] [address] [facility] [address] completed [facility] Wire Arturo Colon MD, MD, [address] [place] [address] [address] [facility] [address] completed [facility] Balloon Arturo Colon MD, MD, [address] [place] [address] [address] [facility] [address] completed [facility] Omnipaque 300 10ml (Medicare [id number]) Arturo Colon MD, MD, [address] [place] [address] [address] [facility] [address] 20 completed [facility] Angioplasty within including RS&I Arturo Colon MD, MD, [address] [place] [address] [address] [facility] [address] completed [facility] Fistulagram, Dialysis Arturo Colon MD, MD, [address] [place] [address] [address] [facility] [address] completed [facility] Antibiotic-No Order Arturo gomez MD, MD, [address] [place] [address] [address] [facility] [address] completed [facility] Quailty Measures all negative Arturo Colon MD, MD, [address] [place] [address] Road [address] [facility] [address] completed [facility] SNOMED-CT:HISTORICA L PNEUMOCOCCAL VACCINATION Arturo Colon MD, MD, [address] [place] [address] [address] [facility] [address] completed [facility] SNOMED-CT:PATIENT ENCOUNTER Arturo Colon MD, MD, [address] [place] [address] [address] [facility] [address] completed [facility]
--- OUTSIDE RECORDS SUMMARY | 2024-04-26 17:57 | XMS_ITS ---
Author Name Gabrielle, Clinic Address [address] [place] [id number] Phone [phone] Organization [facility] e, NA DOCUMENT DISCLAIMER Multiple document versions may exist, please be sure you review the latest version. The information in the [facility] Continuity of Care Document represents a summary of certain health and medical information. It may not contain the complete medical history for the patient and should be independently verified. The represented time in the document is Eastern Time. PROBLEMS Problem Code Status Onset Date Unspecified protein-calorie malnutrition E46 Active November 03, 2023 Other disorders of electroly te and fluid balance, not elsewhere classified E87.8 Active November 03, 2023 Encounter for adequacy testing for hemodialysis Z49.31 Active November 03, 2023 Hyperkalemia E87.5 Active March 24 Type 2 [...] 2022 Encounter for immunization Z23 Active N ovember 2021 End stage renal disease N18.6 Active Deco 2021 Anemia in chronic kidney disease D63.1 Active January 17, 2022 ALLERGIES AND ADVERSE REACTIONS Substance Reaction Severity Status lisinopril cough Active SOCIAL HISTORY Tobacco Use Status Tobacco Type Unknown if ever consumed tobacco - Caregiver Characteristics No Information Available Characteristics of Home environment No Information Available Gender and Sex Information Gender Identity Sexual Orientation Male No Information Avail able MEDICATIONS Prescribed Medications for Dialysis Treatments Medication Instructions Dosage Route Start Date End Date Stat us Etelcalcetide (Parsabiv) Post Dialysis, 3X Week 12.5 mg Intravenous - push September 06, 2023 September 05, 2024 Active Heparin Sodium (Porcine) 1,000 Units/mL Systemic Bolus, Every Treatment, Total treatment minutes 240 3000 units Intravenous - push November 08, 2023 November 06, 2024 Active Doxercalciferol (Hectorol) 3X Week 3 mcg Intravenous - push February 05, 2024 January 31, 2025 Discontinued Mircera During Dialysis, Every 2 weeks 50 mcg Intravenous - push April 10, 2024 April 09, 2025 Discontinued Mircera During Dialysis, Every 2 weeks 60 mcg Intravenous - push March 01, 2024 February 28, 2025 Discontinued Home Medications Medication Instructions Dosage Route Start Date End Date Stat us albuterol sulfate 2.5 mg/3 mL (0.083 %) Inhale as directed three times a day as needed 3 ml INHALATION May 01, 2019 Active allopurinol 100 mg Take by mouth once a day as directed 1 tablet ORAL May 01, 2019 Active atorvastatin 40 mg Take once a day 1 tablet ORAL January 17, 2022 Active cholecalciferol (vitamin D3) 50 mcg (2,000 [...] 1 tablet ORAL November 15, 2021 Active Sevelamer Carbonate Tablet 800 mg Take By Mouth Three times a day With Meals 1 Tablet By Mouth March 30, 2024 March 29, 2025 Active Triphrocaps 1 mg Take by mouth once a day 1 capsule ORAL June 24, 2019 Active sevelamer carbonate 800 mg Take by mouth three times a day with meals 1 tablet ORAL March 29, 2024 Discontinued VITAL SIGNS Post-Treatment Vital Signs Vital Sign Value Date / Time Blood Pressure-sitting 107/71 mmHg April 26, 2024 07:41 AM Blood Pressure-standing 121/64 mmHg April 26, 2024 07:41 AM Heart Rate 41 beats per minute April 26, 2024 07:41 AM Respiratory Rate 16 breaths per minute April 26, 2024 07:41 AM Temperature 97.1 deg. F April 26 07:41 AM Weight Vital Sign Value Date / Time Estimated Dry Weight 96 kg April 11:59 PM Pre-Dialysis 102.10 kg April 26 07:41 AM Post-Dialysis 98.90 kg April 26 07:41 AM Other Other Value Date / Time Height 173 cm August 25, 2021 12 :00 AM Body Mass Index 32.08 kg/m2 April 26 11:41 AM HEALTH CONCERNS LAB RESULTS Hematology Result Type Result Value Relevant Referen ce Range Interpretation Date WBC (No Diff) 7.18 1000/mcL 4.80 - 10.80 1000/mcL - November 22, 2023 Neutrophils 75.8 % 40.0 - 75.0 % High November 22, 2023 UIBC/TIBC 98 mcg/dL 155 - 355 mcg/dL Low Septembe r 2023 Platelets 138 1000/mcL 130 - 400 1000/mcL - Sept emb2023 Platelets 152 1000/mcL 130 - 400 1000/mcL - Octo flako 2023 UIBC/TIBC 122 mcg/dL 155 - 355 mcg/dL Low December 20, 2023 WBC (No Diff) 6.66 1000/mcL 4.80 - 10.80 1000/mcL - December 20, 2023 Neutrophils 76.6 % 40.0 - 75.0 % High December UIBC/TIBC 179 mcg/dL 155 - 355 mcg/dL - January 24, 2024 Neutrophils 81.0 % 40.0 - 75.0 % High January Platelets 219 1000/mcL 130 - 400 1000/mcL - Nove mber 2023 WBC (No Diff) 9.35 1000/mcL 4.80 - 10.80 1000/mcL - January 24, 2024 Hemoglobin x 3 30.6 % 42.0 - 54.0 % Low Novembe r 2023 Hemoglobin x 3 29.7 % 42.0 - 54.0 % Low Novembe r 2023 Hemoglobin x 3 33.0 % 42.0 - 54.0 % Low Novembe r 2023 UIBC/TIBC 142 mcg/dL 155 - 355 mcg/dL Low February 21, 2024 Platelets 173 1000/mcL 130 - 400 1000/mcL - Dece mb2023 MCHC 31.7 g/dL 30.0 - 36.0 g/dL - February 21, 2024 RDW 15.0 % 11.5 - 14.5 % High February Hemoglobin x 3 32.1 % 42.0 - 54.0 % Low Decembe r 2023 YASMIN 3.6 % 0.0 - 4.0 % - February 21, 2024 WBC (No Diff) 4.95 1000/mcL 4.80 - 10.80 1000/mcL - February 21, 2024 MCH 33.8 pg 27.0 - 31.0 pg High February Neutrophils 73.0 % 40.0 - 75.0 % - February Lymphocytes 11.0 % 19.0 - 48.0 % Low February Monocytes 10.0 % 3.0 - 10.0 % - February 21, 2024 Eosinophil 1.9 % 0.0 - 7.0 % - February 21, 2024 Basophils 0.5 % 0.0 - 1.5 % - February 21, 2024 Hemoglobin x 3 33.0 % 42.0 - 54.0 % Low Decembe r 2023 Hemoglobin x 3 33.3 % 42.0 - 54.0 % Low Decembe r 2023 Hemoglobin x 3 33.0 % 42.0 - 54.0 % Low Decembe r 2023 Hemoglobin x 3 30.9 % 42.0 - 54.0 % Low Decembe r 2023 Monocytes 9.7 % 3.0 - 10.0 % - March 27, 2024 Eosinophil 1.6 % 0.0 - 7.0 % - March 27 Neutrophils 73.7 % 40.0 - 75.0 % - March Lymphocytes 11.8 % 19.0 - 48.0 % Low March WBC (No Diff) 6.67 1000/mcL 4.80 - 10.80 1000/mcL - March 27, 2024 RBC 3.57 mill/mcL 4.70 - 6.10 mill/mcL Low J anuary 2024 Basophils 0.4 % 0.0 - 1.5 % - March 27 YASMIN 2.7 % 0.0 - 4.0 % - March 27 HCT 36.4 % 42.0 - 52.0 % Low March 27, 2024 HGB 11.9 g/dL 14.0 - 18.0 g/dL Low March 27, 2024 Hemoglobin x 3 35.7 % 42.0 - 54.0 % Low March 27, 2024 MCHC 32.7 g/dL 30.0 - 36.0 g/dL - March 27, 2024 RDW 16.2 % 11.5 - 14.5 % High March 27, 2024 Platelets 150 1000/mcL 130 - 400 1000/mcL - lele2024 MCH 33.4 pg 27.0 - 31.0 pg High March Ferritin 834 ng/mL 22 - 322 ng/mL High March UIBC/TIBC 174 mcg/dL 155 - 355 mcg/dL - March 27, 2024 HGB 11.1 g/dL 14.0 - 18.0 g/dL Low April 03, 2024 Hemoglobin x 3 33.3 % 42.0 - 54.0 % Low April 03, 2024 Hemoglobin x 3 30.9 % 42.0 - 54.0 % Low April 10, 2024 HGB 10.3 g/dL 14.0 - 18.0 g/dL Low April 10, 2024 HGB 11.8 g/dL 14.0 - 18.0 g/dL Low April 17, 2024 Hemoglobin x 3 35.4 % 42.0 - 54.0 % Low April 17, 2024 RBC 3.76 mill/mcL 4.70 - 6.10 mill/mcL Low F ebruary 2024 HCT 38.9 % 42.0 - 52.0 % Low April MCH 33.0 pg 27.0 - 31.0 pg High April MCHC 31.9 g/dL 30.0 - 36.0 g/dL - April 24, 2024 UIBC/TIBC 100 mcg/dL 155 - 355 mcg/dL Low April 24, 2024 Eosinophil 1.3 % 0.0 - 7.0 % - April 24, 2024 Basophils 0.3 % 0.0 - 1.5 % - April 24, 2024 YASMIN 2.2 % 0.0 - 4.0 % - April 24, 2024 WBC (No Diff) 6.59 1000/mcL 4.80 - 10.80 1000/mcL - April 24, 2024 Hemoglobin x 3 37.2 % 42.0 - 54.0 % Low uar y 2024 Neutrophils 77.0 % 40.0 - 75.0 % High April Platelets 150 1000/mcL 130 - 400 1000/mcL - uary 2024 Lymphocytes 11.3 % 19.0 - 48.0 % Low April RDW 15.0 % 11.5 - 14.5 % High April HGB 12.4 g/dL 14.0 - 18.0 g/dL Low April 24, 2024 Monocytes 7.8 % 3.0 - 10.0 % - April 24, 2024 Ferritin 869 ng/mL 22 - 322 ng/mL High April Metabolic/Renal Result Type Result Value Relevant Referen ce Range Interpretation Date Chloride 99 mEq/L 96 - 108 mEq/L - February Bicarbonate 25 mEq/L 20 - 31 mEq/L - February BUN, Post 11 mg/dL 6 - 19 mg/dL - February 21, 2024 URR, Calc 78 % 65 - 80 % - February 20 024 BUN 51 mg/dL 6 - 19 mg/dL High February 21, 2024 BUN/Creat Ratio 7.7 10.0 - 20.0 Low February 21, 2024 Creatinine, Serum 6.59 mg/dL 0.60 - 1.30 mg/dL High February 21, 2024 Potassium 5.2 mEq/L 3.5 - 5.1 mEq/L High February 21, 2024 Sodium 136 mEq/L 136 - 145 mEq/L - February 21, 2024 URR, Calc 79 % 65 - 80 % - March 27 25 BUN, Post 15 mg/dL 6 - 19 mg/dL - March 27, 2024 Bicarbonate 23 mEq/L 20 - 31 mEq/L - March Chloride 97 mEq/L 96 - 108 mEq/L - March Potassium 6.4 mEq/L 3.5 - 5.1 mEq/L High March Sodium 134 mEq/L 136 - 145 mEq/L Low March BUN/Creat Ratio 10.8 10.0 - 20.0 - March 27, 2024 Creatinine, Serum 6.67 mg/dL 0.60 - 1.30 mg/dL High March 27, 2024 BUN 72 mg/dL 6 - 19 mg/dL High March 27, 2024 Potassium 6.5 mEq/L 3.5 - 5.1 mEq/L High March 202024 Potassium 6.0 mEq/L 3.5 - 5.1 mEq/L High March 212024 BUN/Creat Ratio 11.4 10.0 - 20.0 - April 24, 2024 Sodium 133 mEq/L 136 - 145 mEq/L Low April 24, 2024 Potassium 5.8 mEq/L 3.5 - 5.1 mEq/L High April 24, 2024 Chloride 97 mEq/L 96 - 108 mEq/L - April Bicarbonate 21 mEq/L 20 - 31 mEq/L - April URR, Calc 81 % 65 - 80 % High April 24, 025 BUN, Post 17 mg/dL 6 - 19 mg/dL - April 24, 2024 BUN 88 mg/dL 6 - 19 mg/dL High April 24, 2024 Creatinine, Serum 7.75 mg/dL 0.60 - 1.30 mg/dL High April 24, 2024 HD Adequacy Result Type Result Value Relevant Referen ce Range Interpretation Date Krt/V 0.00 No Reference Ran ge Provided - November 22, 2023 Krt/V 0.00 No Reference Ran ge Provided - December 20, 2023 Krt/V 0.00 No Reference Ran ge Provided - January 24, 2024 eKt/V ([place]) 1.59 No Reference Range Provided - February 21, 2024 spKt/V Gotch 1.93 No Reference Ran ge Provided - February 21, 2024 wstdKt/V 2.6 No Reference Ran ge Provided - February 21, 2024 wstdKt/V, residual 0.0 No Reference Range Provided - February 21, 2024 spKt/V (Daugirdas II) 1.82 No Reference Range Provided - February 21, 2024 wstdKt/V without residual 2.6 No Reference Range Provided - February 21, 2024 Krt/V 0.00 No Reference Ran ge Provided - February 21, 2024 eKt/V ([place]) 1.62 No Reference Range Provided - March 27, 2024 wstdKt/V, residual 0.0 No Reference Range Provided - March 27, 2024 spKt/V Gotch 1.97 No Reference Ran ge Provided - March 27, 2024 Krt/V 0.00 No Reference Ran ge Provided - March 27, 2024 wstdKt/V 2.6 No Reference Ran ge Provided - March 27, 2024 wstdKt/V without residual 2.6 No Reference Range Provided - March 27, 2024 spKt/V (Daugirdas II) 1.86 No Reference Range Provided - March 27, 2024 wstdKt/V 2.7 No Reference Ran ge Provided - April 24, 2024 wstdKt/V, residual 0.0 No Reference Range Provided - April 24, 2024 spKt/V Got 2.09 No Reference Ran ge Provided - April 24, 2024 Krt/V 0.00 No Reference Ran ge Provided - April 24, 2024 spKt/V (Daugirdas II) 1.97 No Reference Range Provided - April 24, 2024 wstdKt/V without residual 2.7 No Reference Range Provided - April 24, 2024 eKt/V ([place]) 1.75 No Reference Range Provided - April 24, 2024 Bone/Mineral Result Type Result Value Relevant Referen ce Range Interpretation Date Magnesium 1.7 mg/dL 1.6 - 2.6 mg/dL - April 28, 2023 Magnesium 1.6 mg/dL 1.6 - 2.6 mg/dL - July 18 024 Vitamin D 25 Hydroxy 23.3 ng/mL 30.0 - 100.0 ng/mL Low July 19, 2023 Magnesium 1.8 mg/dL 1.6 - 2.6 mg/dL - October PTH-Intact, Plasma 648 pg/mL 16 - 80 pg/mL High Sep tem2023 PTH-Intact, Plasma 560 pg/mL 16 - 80 pg/mL High Oct zhen2023 Magnesium 2.0 mg/dL 1.6 - 2.6 mg/dL - January 24, 2024 PTH-Intact, Plasma 490 pg/mL 16 - 80 pg/mL High Nov emb2023 Calcium, Total 10.1 mg/dL 8.7 - 10.4 mg/dL - 2023 Ca x P Product 44 0 - 54 - February Phosphorus 4.4 mg/dL 2.6 - 4.5 mg/dL - February 21, 2024 Corrected Ca x P Product 44 0 - 54 - February 20 Calcium, Total 10.0 mg/dL 8.7 - 10.4 mg/dL - 2023 PTH-Intact, Plasma 669 pg/mL 16 - 80 pg/mL High Feb Corrected Ca x P Product 56 0 - 54 High March 27, 2024 Ca x P Product 57 0 - 54 High March Phosphorus 5.8 mg/dL 2.6 - 4.5 mg/dL High March Calcium, Total 9.8 mg/dL 8.7 - 10.4 mg/dL - 2024 Calcium, Total 9.7 mg/dL 8.7 - 10.4 mg/dL - 2024 Phosphorus 5.9 mg/dL 2.6 - 4.5 mg/dL High April 24, 2024 Ca x P Product 57 0 - 54 High April Alkaline Phosphatase 175 U/L 40 - 129 U/L High 2024 Corrected Ca x P Product 56 0 - 54 High April 24 Magnesium 1.8 mg/dL 1.6 - 2.6 mg/dL - April 24, 2024 PTH-Intact, Plasma 1083 pg/mL 16 - 80 pg/mL High Apr Liver/Nutrition Result Type Result Value Relevant Referen ce Range Interpretation Date Albumin (BCG) 4.0 g/dL 3.5 - 5.2 g/dL - 2023 Total Protein 7.0 g/dL 6.0 - 8.5 g/dL - 2023 Globulin (Calc) 3.0 g/dL 2.0 - 4.0 g/dL - 2023 A/G Ratio 1.3 1.0 - 2.0 - February 20, 024 eNPCR 0.98 No Reference Ran ge Provided - February 21, 2024 A/G Ratio 1.3 1.0 - 2.0 - March 27 Globulin (Calc) 3.2 g/dL 2.0 - 4.0 g/dL - 2024 Total Protein 7.3 g/dL 6.0 - 8.5 g/dL - March 27, 2024 Albumin (BCG) 4.1 g/dL 3.5 - 5.2 g/dL - March 27, 2024 eNPCR 1.32 No Reference Ran ge Provided - March 27, 2024 eNPCR 1.64 No Reference Ran ge Provided - April 24, 2024 Total Protein 7.1 g/dL 6.0 - 8.5 g/dL - 2024 Albumin (BCG) 4.2 g/dL 3.5 - 5.2 g/dL - 2024 Globulin (Calc) 2.9 g/dL 2.0 - 4.0 g/dL - 2024 A/G Ratio 1.4 1.0 - 2.0 - April 24 025 Trace Elements Result Type Result Value Relevant Reference Range Interpre tation Date Aluminum < 5 mcg/L 0 - 10 mcg/L - November Aluminum < 5 mcg/L 0 - 10 mcg/L - January 24, 2024 Infectious Diseases Result Type Result Value Relevant Referen ce Range Interpretation Date Hep B Surface Ab (anti-HBs) 42 mIU/mL No Reference Range Provided - March 27, 2024 Hep B Surface Ag (HBsAg) Negative No Reference Range Provided - March 27, 2024 DIALYSIS PRESCRIPTION Conventional Hemodialysis Data Element Value Order Date/Time April 26, 2024 Frequency 3X Week Treatment Days MonWedFri Dialyzer [id number] Optiflux Treatment Time (Total Minutes) 270 min Blood Flow Rate (mL/min) 300 mL/min Dialysate Flow Rate Autoflow 1.5 Estimated Dry Weight 96 kg Dialysate Concentrate 2.0 K, 2.5 Ca, 1.0 Mg, 100 Dextrose (G2251) Sodium (mEq/L) 138 mEq/L Bicarb Machine Setting (mEq/L) 34 mEq/L Dialysis Access Hemodialysis-AV Fist penny-Standard, Left [...] April 17, 2020 0.5 mL Intramuscular Completed [id number], series 4 of October 30, 2019 40.0 mcg Intramuscular Completed [id number], series 3 of July 03, 2019 40.0 mcg I ntramuscular Completed VQTRPUI-O-[id number], series 2 of 4 June 03, 2019 40.0 mcg I ntramuscular Completed [id number], series 1 of May 03, 2019 40.0 mcg Intramuscular Completed TRANSPLANT WAITLIST STATUS No Information on Transplant Waitlist Status ADVANCE DIRECTIVES Directive Description Ordered By Effective Date Resuscitation status Full Code Ernie Pompa Nov 07, 2023 DIALYSIS TREATMENTS Conventional Hemodialysis Date Pre-Treatment Vitals Post-Treatment Lexus ls Duration (hr) BFR (mL/min) Dialysate Dialyzer Dialysis [facility] Weight 102.70 kg Weight 99.90 kg 04:00:00 410 2.0 K, 2.5 Ca, 1.0 Mg, 100 Dextrose (G2251) 180nre Optifl ux Blood Pressure-sitting 159/75 mmHg Blood Pressure-sit ting 123/68 mmHg Blood Pressure-standing 156/101 mmHg Blood Pressure-st anding 123/66 mmHg Heart Rate 89 beats per minute Heart Rate 43 beats per minute Respiratory Rate 16 breaths per minute Respiratory Rate 16 breaths per minute Temperature 96.8 deg. F Temperature 97.4 deg. F April 24, 2024 Weight 102.20 kg Weight 99.00 kg 04:33:00 410 2.0 K, 2.5 Ca, 1.0 Mg, 100 Dextrose (G2251) 180nre Optiflux Hemodialysis-AV Fistula-Standard, Left Upper Arm, Other/Unknown Doxercalciferol (Hectorol); 3mcg,Intravenous - push Etelcalcetide (Parsabiv); 12.5mg,Intravenous - push Heparin Sodium (Porcine) 1,000 Units/mL Systemic; 3000units,Intravenous - push Blood Pressure-sitting 143/65 mmHg Blood Pressure-sit ting 110/68 mmHg Blood Pressure-standing 164/81 mmHg Blood Pressure-st anding 129/63 mmHg Heart Rate 70 beats per minute Heart Rate 42 beats per minute Respiratory Rate 16 breaths per minute Respiratory Rate 16 breaths per minute Temperature 97.5 deg. F Temperature 97.9 deg. F April 26, 2024 Weight 102.10 kg Weight 98.90 kg 03:59:00 310 2.0 K, 2.5 Ca, 1.0 Mg, 100 Dextrose (G2251) 180nre Optiflux Hemodialysis-AV Fistula-Standard, Left Upper Arm, Other/Unknown Doxercalciferol (Hectorol); 3mcg,Intravenous - push Etelcalcetide (Parsabiv); 12.5mg,Intravenous - push Heparin Sodium (Porcine) 1,000 Units/mL Systemic; 3000units,Intravenous - push Blood Pressure-sitting 158/97 mmHg Blood Pressure-sit ting 107/71 mmHg Blood Pressure-standing 158/87 mmHg Blood Pressure-st anding 121/64 mmHg Heart Rate 85 beats per minute Heart Rate 41 beats per minute Respiratory Rate 16 breaths per minute Respiratory Rate 16 breaths per minute Temperature 96.9 deg. F Temperature 97.1 deg. F
--- OUTSIDE RECORDS SUMMARY | 2024-04-26 17:57 | XMS_ITS ---
Author Organization [facility] Address [address] [place] [address] Care Team Providers Care Maintenance Worker Swimming Pool Name Role Phone Elsewhere, Pcp Primary Care Provider Unavailabl e Procedures Procedure Name Priority Date/Time Associated Diagnosis Comments RENAL FUNCTION PANEL, S Routine 07/27/2022 8:02 AM CDT from Last 3 Months or Most Recently Relevant to Health Maintenance Allergies Active Allergy Reactions Criticality Noted Date Comments Lisinopril Cough 06/07/2006 Medications albuterol 90 mcg/actuation inhaler Inhale 2 puffs every 4 (four) hours as needed for shortness of breath. 2 Active albuterol 2.5 mg /3 mL nebulizer solution Inhale 3 mL 3 (three) times a day as needed for wheezing or shortness of breath. 0 Active allopurinoL (ZYLOPRIM) 100 mg tablet Take 1 tablet by mouth daily. 0 Active amoxicillin (AMOXIL) 500 mg capsule 4 capsules oral one hour before procedure. 1 Active aspirin 81 mg chewable tablet Chew 81 mg daily. 2 Active atorvastatin (LIPITOR) 40 mg tablet Take 1 tablet by mouth daily. 2 Active B complex-vitamin C-FA (Triphrocaps) 1 mg capsule Take 1 capsule by mouth daily. 2 Active clopidogreL (Plavix) 75 mg tablet Take 1 tablet by mouth daily. 2 Active fluticasone propion-salmete roL (Advair HFA) 115-21 mcg/actuation inhaler Inhale 2 puffs 2 (two) times a day. 2 Active fluticasone propionate (FLONASE) 50 mcg/actuation nasal spray Administer 2 sprays into nostril(s) 2 (two) times a day as needed for congestion. 2 Active ipratropium-alb uteroL (DUONEB) 0.5-2.5 mg/3 mL nebulizer solution Inhale 3 mL every 6 (six) hours as needed for wheezing or shortness of breath. 0 Active lidocaine-prilo brice (EMLA) 2.5-2.5 % cream Apply 1 Application topically as needed for pain (port access). 1 Active midodrine (PROAMATINE) 10 mg tablet Take 1 tablet by mouth 3 (three) times a week. Monday, Monday and Monday before dialysis 2 Active pantoprazole (Protonix) 40 mg EC tablet Take 1 tablet by mouth daily. 2 Active sevelamer carbonate (RENVELA) 800 mg tablet Take 800 mg by mouth 2 (two) times a day with meals. 2 Active metoprolol succinate (TOPROL-XL) 25 mg 24 hr tablet Take 0.5 tablets (12.5 mg total) by mouth 2 (two) times a day. 30 tablet 3 Active cefdinir (OMNICEF) 300 mg capsule Take 1 capsule (300 mg total) by mouth daily. 1 capsule 07/27/2022 3:50 PM CDT 3 Active Active Problems Problem Noted Date Diagnosed Date Pneumonia 07/25/2022 Chronic Obstructive Pulmonary Disease Exacerbati on 07/24/2022 Failure Renal End Stage 12/30/2021 07/26/19 23 Major Depressive Disorder, Recurrent, Unspecifie d 10/15/2021 07/25/2022 Chronic Kidney Disease Stage 5 Glomerular Filtration Rate Less Than 15 10/08/2021 07/25/2022 Unspecified Diastolic (Congestive) Heart Failure 10/08/2021 07/25/2022 Overview (07/26/2022): LVEF 63% Anemia Iron Deficiency 04/29/2019 3 Barretts Esophagus With Dysplasia Unspecified 07/25/2022 Osteoarthritis 04/29/2019 07/25/2022 Morbid Severe Obesity Due To Excess Calories 12/201907/25/2022 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 Mitral valve diastolic mean Doppler gradient of 14 mmHg. 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 No Coumadin needed for tissue AVR, recommend Aspirin 325mg daily X1 month, then 81 mg daily indefinitely. 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 LAB BLOOD ADD- ON Final Result [facility] [address] [place] [address] [place] [address], [place] ECLR [facility] [place] [address] [place] [address] [place] [id number] from Last 3 Months or Most Recently Relevant to Health Maintenance
--- OUTSIDE RECORDS SUMMARY | 2024-04-26 17:57 | XMS_ITS | Clinical Summary ---
Author Organization [facility] Address [address] [place] [address] Care Team Providers Care Voice Intercept Technician Name Role Phone Elsewhere, Pcp Primary Care Provider Unavailabl e Source Comments Patient records contain information from all sites at [facility]. For routine questions regarding patient records, call [phone] during business hours, M-F 8:00 AM - 5:00 PM Central Time. Record requests for emergency care only can be directed to [phone] at any time.[facility] Allergies Active Allergy Reactions Criticality Noted [...] valve stenosis. Atherosclerotic Heart Diseas e Of [place] Coronary Artery Without Angina Pectoris 04/04/2007 07/25/2022 [...] Monitoring (PHQ-9) 1945 Diabetic Office Visit with Foot Exam 1946 Dilated Eye Exam 1945 Office Visit for Blood Pressure Check / Re-check 1946 Urine Albumin 1945 Zoster Vaccines (1 of 2) 1996 DTaP,Tdap,and Td Vaccines (2 - Td or Tdap) 08/29/2018 08/29/2008 Creatinine Level (Kidney Function Test) 07/28/2023 07/27/2022, 07/26/2022, 07/25/2022, Additional history exists COVID-19 Vaccine ( season) 2023 06/20/2023, 01/07/2023, 02/02/2022, Additional history exists Hemoglobin A1C 12/10/2023 06/09/2023, 11/19, 06/07/2022, Additional history exists Influenza Vaccine (#1) 2023 , 12/08/2021, 12/04/2019, Additional history exists Depression Monitoring (PHQ-9 for quality tracking) 03/20/2024 Fall Risk Screen (Annual) 03/20/2024 Pneumococcal vaccine (50+ years) Completed 06/14/2022, 12/09/2015, 08/21/2014, Additional history exists RSV vaccine - (32-36 weeks) or 60+ years Completed 01/07/2023 IPV Vaccines Aged Out No longer eligi ble based on patient's age to complete this [...] CDT 07/27/2022 8:10 AM CDT us Melanie Ferris.NRoPRo, A.P.N.P. LAB BLOOD ADD- ON Final Result [facility] [address] [place] [address], [facility] ECLR [facility] [place] [address] [place] [address] from Last 3 Months or Most Recently Relevant to Health Maintenance Insurance [facility] Advance Directives For more information, please contact: [phone] * Full Code (Latest Code Status on File) Date Activated Date Inactivated Comments 07/24/2022 10:03 PM 07/27/2022 10:19 PM Question Answer Comments Full Code: Not Discussed Due to: Patient not available Care Teams Voice Intercept Technician Relationship Specialty Start Date End Date Elsewhere, Pcp PCP - General Internal Medicine 07/25/22
--- OUTSIDE RECORDS SUMMARY | 2024-04-26 17:57 | XMS_ITS | Clinical Summary ---
Author Organization [facility] Address [place], [place] [address] Care Team Providers Care Air Traffic Control Operator Name Role Phone Liban Leos MD Primary Care Provider Tanya Pza PharmD Unavailable [phone] Allergies Active Allergy Reactions Criticality Noted Date Comments Blood-Group Specific Substance Other - Describe In Comment Field 01/15/2019 Patient has a Suggestive Warm Auto antibody. Blood products may be delayed. Draw patient 24 hours prior to transfusion. Draw one red top and two purple top tubes for all type and screen orders. Homeopathic Products Runny Nose 08/13/2008 Lisinopril Cough 06/07/2006 Medications lidocaine-prilocai ne (EMLA) 2.5-2.5 % cream APPLY SMALL AMOUNT TO ACCESS SITE (AVF) 1 TO 2 HOURS BEFORE DIALYSIS. COVER WITH OCCLUSIVE DRESSING (SARAN WRAP) 03/30/19 21 Active albuterol HFA (PRO-AIR; VENTOLIN; PROVENTIL) 90 mcg/actuation inhaler Inhale 2 Puffs by mouth every 4 hours if needed for Shortness Of Breath. Active sevelamer carbonate (RENVELA) 800 mg tab tabletIndications: ESRD (end stage renal disease) on dialysis (HC) Take one tab twice a day with meals 0 01/14/20 22 Active midodrine 10 mg tabletIndications: ESRD (end stage renal disease) on dialysis (HC) Take 1 Tablet (10 mg) by mouth before dialysis. 0 01/14/20 22 Active sodium chloride-aloe vera (AYR) nasal gel Apply to affected nostril(s) two times daily. Active ammonium lactate 12% (LACHYDRIN) 12 % creamIndications:X erosis of skin Apply topically to affected area(s) two times daily. 140 g 3 12/21/19 23 Active sodium chloride (OCEAN) 0.65 % nasal solutionIndication s:Post-nasal drip Inhale 1 [place] into affected nostril(s) every hour if needed for Nasal Congestion. 45 mL 03/16/20 23 Active mometasone-formote rol (DULERA) 200-5 mcg/actuation inhalerIndications :Moderate persistent asthma, unspecified whether complicated Inhale 2 Puffs by mouth two times daily. 13 g 12 04/15/19 24 Active albuterol-ipratrop ium (DUONEB) (2.5-0.5 mg) in 3 mL NEBULIZATION solutionIndication s:Bronchospasm Inhale 3 mL via a nebulizer every 6 hours if needed for Shortness of Breath 1st choice. 180 mL 3 04/21/19 24 Active honey (MediHoney, honey,) 100 % psteIndications:Di abetic ulcer of right midfoot associated with type 2 diabetes mellitus, with muscle involvement without evidence of necrosis (HC) Apply topically to affected area(s). Daily or as needed with dressing changes. 44 mL 3 06/09/19 24 Active allopurinoL (ZYLOPRIM) 100 mg tabletIndications: Essential hypertension Take 1 Tablet (100 mg) by mouth once daily. 90 Tablet 3 06/20/19 24 Active metoprolol succinate (TOPROL XL) 25 mg Sustained-Release tabletIndications: Essential hypertension Take 0.5 Tablets (12.5 mg) by mouth once daily. 45 Tablet 3 06/20/19 24 Active pantoprazole (PROTONIX) 40 mg delayed-release tabletIndications: Chronic GERD Take 1 Tablet (40 mg) by mouth once daily before a meal. 90 Tablet 3 06/20/19 24 Active atorvastatin (LIPITOR) 40 mg tabletIndications: Hyperlipidemia, unspecified hyperlipidemia type Take 1 Tablet (40 mg) by mouth once daily. 90 Tablet 3 11/28/19 24 Active clopidogreL (PLAVIX) 75 mg tabletIndications: S/P AVR (aortic valve replacement) Take 1 Tablet (75 mg) by mouth once daily in the morning. 90 Tablet 3 11/28/19 24 Active amoxicillin 500 mg capsuleIndications :Need for SBE (subacute bacterial endocarditis) prophylaxis 4 capsules oral one hour before procedure. 12 Capsule 1 12/03/19 24 Active blood sugar diagnostic (Contour Next Test Strips) stripIndications:T ype 2 diabetes mellitus with stage 5 chronic kidney disease not on chronic dialysis, without long-term current use of insulin (HC) TEST 2 TIMES PER DAY 200 Each 3 12/05/19 24 Active fluticasone (50 mcg per actuation) nasal solution (FLONASE)Indicatio ns:Allergic rhinitis due to pollen, unspecified seasonality Instill 2 sprays in each nostril once daily. 48 g 2 12/19/19 24 Active b complex-vitamin c-folic acid 1 mg (Triphrocaps) 1 mg capsuleIndications :Stage 4 chronic kidney disease (HC) Take 1 Capsule by mouth once daily. 90 Capsule 1 04/15/19 25 Active b complex-vitamin c-folic acid 1 mg (Triphrocaps) 1 mg capsuleIndications :Stage 4 chronic kidney disease (HC) Take 1 capsule by mouth daily. 90 Capsule 3 05/21/19 24 025 Discontin ued(*Avai lability/ Formulary change/Co st of medicatio n) Active Problems Problem Noted Date Diagnosed Date S/P TAVR (transcatheter aortic valve replacement ) 07/25/2023 Mitral valve stenosis 07/25/2023 Diabetic ulcer of right midf oot associated with type 2 diabetes mellitus, with muscle involvement without evidence of necrosis 06/12/2023 Reactive airway disease 12/20/2022 Overview (12/20/2022): PFT 05/2021; mod reduction FVC and FEV1 w nl FEV1/FVC ratio however near sig improvement of FEV1 after albuterol. ESRD (end stage renal disease) on dialysis 12/30 Depression, recurrent 10/15/2021 Primary osteoarthritis of knees, bilateral 06/09 Overview (06/09/2021): May 2021: bilateral cortisone knee injections by Dr. Lara. 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 No Coumadin needed for tissue AVR, recommend Aspirin 325mg daily X1 month, then 81 mg daily indefinitely. 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 Tachycardia 10/06/2008 07/17/2020 Dyspnea 10/06/2008 02/15/2022 Atrial flutter 10/06/2008 12/15/2020 Overview (10/08/2008): - New onset 09/25, s/p DCCV 10/07/08. Acute renal insufficiency 10/06/2008 Hyponatremia 09/16/2008 04/17/2019 Postoperative Sternal Wound Infection 09/16/2008 07/17/2020 Morbid obesity 09/03/2008 05/18/2021 Iron deficiency anemia, unspecified 08/13/2008 07/17/2020 Overview (10/06/2008): Admitted to [facility] 08/12/08 with Hgb 5.6, ferritin 5. Negative colonoscopy. 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 Reportedly negative outpatient capsule study. Chest pain, unspecified 06/20 AORTIC VALVE DISORDER: Moderate to severe 07/17/2020 Overview (09/03/2008): -Echo 03/29/07: Mild concentric LVH with normal wall motion. EF 55-60%. Marked KIERAN. Mod . CLAUS 1.3 cm sq. Mean gradient 24 mmHg. Mild W[place], TI. Mild pulmonary hypertension. RVSP 39 mmHg +RAP. -S/P AVR 09/03/2008 Acute CHF 07/26/2010 Overview (04/04/2007): -Mar 2007 admission to [facility] CKD (chronic kidney disease) stage 5, GFR less than 15 ml/min 02/15/2022 End stage renal disease 06/20 Mitral stenosis 07/17/2020 Overview (07/17/2020): Moderate to severe by echo 02/2019 Encounters Date Type Department Care Team Description 04/26/2024 Nurse Triage [facility] [address] [place] [address] Liban Leos MD Leg Pain/problem 04/15/2024 Refill [facility] [address] [place] [address] Liban Leos MD Refill Request (Triphrocaps) 04/14/2024 Refill [facility] [address] [place] [address] Liban Leos MD Refill Request 03/28/2024 Patient Outreach [facility] Care Management - Advanced Care Team [address] [place] [address] Cara Herrera Complex Care Management ([facility] ENGAGEMENT OUTREACH) 03/21/2024 Orders Only [facility] Scanner 1 scan: (1-Ord) [facility], 03/21/2024 03/21/2024 Patient Outreach [facility] Care Management - Care Management Navigation/[facility] [address] [place] [address] Deena Figueroa Care Management Intake (Date of Identification) 03/08/2024 Telephone [facility] [address] [place] [address] Al Lara MD Results 03/05/2024 10:30 AM CAR CARDER Ancillary Procedure [facility] [address] [place] [address] 03/05/2024 Travel 02/08/2024 11:10 AM CAR CARDER Preop Visit [address] [address] Al Lara MD Preoperative Exam (Cataract Surgery DOS: 02/22/2024 & 02/29/2024/[facility] in [place]); Immunization/Injecti on 02/08/2024 Travel from Last 3 Months Immunizations Name Administration Dates Next Due AMB INFLUENZA IIV3 (AGE 65+ YRS) PF (Flu Clinic Only) 12/28/2018 COVID-19 VACCINE SPIKEVAX (M ODERNA 50MCG/0.5ML) 12YO+ PFS 02/08/2024,06/20/2023,01/07/2023 COVID-19 vaccine (Moderna 100mcg/0.5mL) PF, MDV 05/11/2020,04/17/2020 COVID-19 vaccine (Pfizer-Bio NTech 30mcg/0.3mL) 12YO+ THOMAS-SUCROSE PF, MDV 10/15/2021 Influenza, High-dose Inactivated 12/09/2015,02/18,12/16/2013 Influenza, IIV3 (Age 6-35 mos) 02/01/2011 Influenza, IIV3 (Age >=3 years) 04/19/19 14,04/03/2012,02/01/2011,12/21,12/30/2008 Influenza, IIV4 12/04/2019 Influenza, Inactivated AIIV4 (Age 65+ Years) Preserv Free 12/20/2022,12/08/2021 Influenza, Inactivated IIV3 (Age 65+ Years) Preserv Free 11/28/2023,01/04/2018,01/11/2017 Pneumococcal Conj 20-valent (Prevnar 20) 06/14/2022 Pneumococcal [...] 1 06/20/2023 Social Connections Answer Date Recorded Do you often feel lonely or isolated from those around you? 0 06/20/2023 Financial Resource Strain Answer Date R ecorded Difficulty of Paying Living Expenses 2 06/20/2023 Difficulty of Paying Living Expenses 1 06/20/2023 Food Insecurity Answer Date Recorded Do you worry your food will run out before you are able to buy more? 1 06/20/2023 Transportation Needs Answer Date Record ed Does lack of transportation keep you from medica l appointments? 1 06/20/2023 Does lack of transportation keep you from work, meetings or getting things that you need? 1 06/20/2023 Housing Stability Answer Date Recorded What is your housing situation today? 1 06/20/2023 Utilities Answer Date Recorded Do you have trouble paying f or utilities (for example, heat, electricity, water, phone)? 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 Not on file Not on file Obstetrics History Last Filed Vital Signs Vital Sign Reading Time Taken Comments Blood Pressure 125/43 02/08/2024 11:15 AM CAR CARDER Pulse 55 02/08/2024 11:15 AM CAR CARDER Temperature 36.5 C (97.7 F) 01/31/2023 7:53 AM CAR CARDER Respiratory Rate 18 01/14/2022 1:12 PM CDT Oxygen Saturation 99% 02/08/2024 11: 15 AM CAR CARDER Inhaled Oxygen Concentration - - Weight 100.4 kg (221 lb 4.8 oz) 024 11:15 AM CAR CARDER Height 171.3 cm (5' 7.44) 06/20/2023 9:20 AM CD T Body Mass Index 34.21 06/20/2023 9:20 AM CDT Plan of Treatment Upcoming Encounters Date Type Department Care Team (Late st Contact Info) Description 04/30/2024 10:50 AM CAR CARDER Office Visit [facility] [address] [place] [address] Lisa Zarate DO [address] [place] [address] 06/25/2024 9:15 AM CDT Orders Only [facility] [address] [place] [address] Lab, [place] 06/25/2024 9:40 AM CDT Office Visit [facility] [address] [facility] [place] [address] Liban Leos MD [address] [place] [address] Health Maintenance Due Date Last Done Comments Zoster (shingles) series for age 50+ (1 of 2) 1996 Tetanus booster 08/29/2018 08/29/2008, 03/20/1997 BMI (ht and wt on same day) for age 18+ 06/19/2024 06/20/2023, 06/21/2022, 06/14/2022, Additional history exists Depression screening for age 12+ 06/19/2024 06/20/2023, 06/14/2022, 12/16/2020, Additional history exists Medicare Wellness for age 65+ 06/20/2024, 06/14/2022, 12/15/2020, Additional history exists Tdap Completed 08/29/2008 Hepatitis C screening for ag e 18-79 Completed 11/30/2021 Pneumococcal series for age 50+ Completed 06/14/2022, 12/09/2015, 08/21/2014, Additional history exists RSV vaccine for adults or Completed 01/07/2023 Influenza for age 65+ Completed 11/28/2023 , 12/20/2022, 12/08/2021, Additional history exists COVID-19 vaccine series Completed 02/08/20 24, 06/20/2023, 01/07/2023, Additional history exists Medical Devices Implanted Type Area Vessel Liner Device Identifier Shelf Expiration Date Model / Serial / Lot Anw Hh [id number] Implanted:Qty: 1 on 09/03/2008 at [facility] Explanted:at [facility] (Quantity not on file) Cv Implants N/A: Aortic Valve [id number] Jaclyn 07/13/2010 [id number] # / [id number] / Procedures Procedure Name Priority Date/Time Associated Diagnosis Comments SCAN-EYE EXAM 03/21/2024 12:00 AM CAR CARDER US CAROTID DUPLEX BILATERAL Routine 03/05/2024 11:00 AM CAR CARDER Preoperative examination Bruit of left carotid artery ANTI HCV Add On 11/30/2021 12:45 PM CDT Need for hepatitis C screening test from Last 3 Months or Most Recently Relevant to Health Maintenance Results * SCAN-EYE EXAM (03/21/2024 12:00 AM CAR CARDER) us Scanner OTHER Final Result * US CAROTID DUPLEX BILATERAL (03/05/2024 11:00 AM CAR CARDER) Anatomical Region Laterality Modality CAROTID, NECK Ultrasound Impressions 03/08/2024 4:53 PM CAR CARDER Essentially stable less than 50% narrowing of the origin of the cervical ICAs bilaterally. Ar Benjamin D.O. Neuroradiologist [email or web address] EVELINA/[email or web address] / Narrative 03/08/2024 4:53 PM CAR CARDER Table formatting from the original result was not included. For Patients: As a result of the Cures Act, medical imaging exams and procedure reports are released immediately into your electronic medical record. You may view this report before your referring provider. If you have questions, please contact your health care provider. BILATERAL CAROTID ULTRASOUND, 03/05/2024 CLINICAL HISTORY: Left-sided carotid bruit. TECHNIQUE: The carotid circulations and the vertebral arteries in the neck were examined with talbot-scale ultrasound, color-flow and Doppler spectral analysis. Degrees of stenosis were determined using SRU 2002 Consensus Panel Criteria. COMPARISON: September 15, 2008. FINDINGS: There is extensive plaque formation within the distal common carotid arteries extending into the proximal ICA and ECAs. There is mild flow velocity elevation within the proximal cervical ICAs. Antegrade flow within the vertebral arteries bilaterally. PSV/EDV Right Left Distal CCA 93/10 75/10 Proximal ICA 98/10 95/14 Mid ICA 88/12 80/12 Distal ICA 75/16 95/23 ICA/CCA Ratio Right Left 1.05 1.27 Vertebral Artery Right Left Antegrade x x Retrograde - - us Al Lara MD Final Res ult * ANTI HCV (11/30/2021 12:45 PM CDT) HEPATITIS C ANTIBODY Non-React joe Non-React joe 12/03/2021 4:28 PM CDT [facility] Comment:Antibodies to HCV no t detected; does not exclude the possibility of exposure to HCV. Blood BLOOD SPECIMEN / Unknown Venipuncture / Unknown 11/30/2021 12:45 PM CDT 11/30/2021 1:44 PM CDT us Liban Leos MD SEND OUTS Final Result [facility] [address] [place] [address], [place] from Last 3 Months or Most Recently Relevant to Health Maintenance Insurance BLUE CROSS MEDICARE ADVANTAGE MR Advance Directives * Full Code (Latest Code [...] 1:41 AM 10/20/2008 1:45 PM Care Teams Air Traffic Control Operator Relationship Specialty Start Date End Date Liban Leos MD [address] [place] [address] PCP - General Family Practice 07/17/20 Tanya Paz, PharmD [address] [facility] [address] [place] [address] Pharmacist Medication Management Pharmacology 05/31/22
--- OUTSIDE RECORDS SUMMARY | 2024-04-26 17:57 | XMS_ITS | Continuity of Care Document ---
Author Organization [facility] Address [address] [address] [place] [address] Phone Care Team Providers Care Music Intern Name Role Phone Unavailable Unavailable Unavailable Procedures Procedure Date Init Hosp-da [...] Dx (sep Pro) 09 Ugi Endo; W/bx mx Advance Directives Directive Yes / No Effective Date File Name No Information Encounters Encounter Description Practice Location Reason(s) For Visit Diagnoses Date Provider Providers Copied on Encounter [facility], [address] [address], [place], [id number], [place] tel:[phone] [facility] No Information No Information Init Hosp-da E&m Mod Severity [facility], [address] [address], [place], [id number], [place] tel:[phone] [facility] No Information 2 No Information Referring Provider: Layne Rossi PAC R, [address], [place], [address]. tel:[phone] Subsqt Hosp-da E&m Minr Compl [facility], [address] [address], [place], [place], [id number], [place] tel:[phone] [facility] No Information 9 Desean Gonzalez. [address] [facility], [place], [place], [id number], [place]. tel:[phone] Referring Provider: Dallin Alvares, [address], [place], [address]. tel:[phone] Init Inpt Cons New/est Mod-hi [facility], [address] [address], [place], [place], [id number], [place] tel:[phone] [facility] No Information No Information Referring Provider: Dallin Alvares, [address], [place], [address]. tel:[phone] [facility], [address] [address], [place], [place], [id number], [place] tel:[phone] [facility] No Information 9 Nilton Cerda. [address] [facility], [facility] [address], [place], [place], [id number], [place]. tel:[phone] Referring Provider: Bryan Mcelroy, [address] [facility] [address], [place], [address] . tel:[phone] Subsqt Hosp-da E&m Minr Compl [facility], [address] [address], [place], [place], [id number], [place] tel:[phone] [facility] No Information 9 Quentin Robertson. [address] [facility], [facility] [address], [place], [place], [id number], [place]. tel:[phone] Referring Provider: Dallin Alvares, [address], [place], [address]. tel:[phone] Init Inpt Cons New/est Mod-hi [facility], [address] [address], [place], [place], [id number], [place] tel:[phone] [facility] No Information Cash Aadms. [address] [facility], [facility] [address], [place], [place], [id number], [place]. tel:[phone] Referring Provider: Dallin Gomez MD R, [address] [facility] [address], [place], [address]. tel:[phone] Family History Family Member Type Diagnosis Age At Onset No Information Payers Payer name Insurance type Covered alliance party ID Authorangela chente(s) Blue Cross Medicare Advantage BL [id number] Social History Type Description Quantity Date [...]
[2024-04-26 18:22] VITALS: BP 130/68; PULSE 56; RESP 18; TEMP 36.9; O2SAT 97; BMI 31.9
--- NOTE | 2024-04-26 19:30 | CRLHL7_ITS ---
For Patients: As a result of the Cures Act, medical imaging exams and procedure reports are released immediately into your electronic medical record. You may view this report before your referring provider. If you have questions, please contact your health care provider. INDICATION: Pain, no specific injury event. TECHNIQUE: Pelvis and left hip 3 view. COMPARISON: None. FINDINGS: Bones: No acute fracture identified. No suspicious bone lesion. Alignment is normal. Joint spaces: Mild degenerative changes of the hips. Degenerative changes of the lower lumbar spine. Soft tissues: Unremarkable. Vascular calcifications. IMPRESSION: 1. No acute findings. 2. Mild degenerative changes of the hips. Dictated by Evelyn Rios MD @ 04/26/2024 9:21:22 PM (Electronically Signed)
--- NOTE | 2024-04-26 19:31 | ED.GENADULT ---
HPI - General Adult General Chief complaint: Extremity Pain/Injury, Lower Stated complaint: Left leg pain, between hip and knee Time Seen by Provider: 04/26/24 19:19 History of Present Illness HPI narrative: This 78-year-old male comes in reporting pain in his left hip radiating down into his left thigh. He does not report any specific injury event but states that he may have over did it recently with certain activities. He states the pain began about 10 days ago and does not seem to be getting better. He attempted to make an appointment with the clinic but could not get in for a few days so he came in today. He does not report any low back pain. He goes to dialysis 3 days a week. Related Data Home Medications ?Medication ?Instructions ?Recorded ?Confirmed allopurinol 100 mg tablet 100 mg PO DAILY 12/22/21 02/22/23 fluticasone propionate 115 2 inh inhalation Q12H 12/22/21 02/22/23 mcg-salmeterol 21 mcg/actuation HFA inhaler (Advair HFA) ipratropium 0.5 mg-albuterol 3 mg ml inhalation 12/22/21 02/22/23 (2.5 mg base)/3 mL nebulization soln metoprolol succinate 25 mg 12.5 mg PO DAILY 12/22/21 02/22/23 tablet,extended release 24 hr pantoprazole 40 mg tablet,delayed 40 mg PO DAILY 12/22/21 02/22/23 release sevelamer carbonate 800 mg tablet 800 mg PO TID 12/22/21 02/22/23 atorvastatin 40 mg tablet 40 mg PO DAILY 07/24/22 02/22/23 clopidogrel 75 mg tablet 75 mg PO DAILY 07/24/22 02/22/23 midodrine 10 mg tablet 10 mg PO PRN 07/24/22 02/22/23 Previous Rx's ?Medication ?Instructions ?Recorded hydrocodone 5 mg-acetaminophen 325 1 tab PO Q4-6H PRN pain #20 tabs 04/26/24 mg tablet Allergies Allergy/AdvReac Type Severity Reaction Status Date / Time lisinopril AdvReac Unknown Verified 04/26/24 18:29 Review of Systems Status of ROS: Reports: 10 or more systems reviewed and unremarkable except as noted in History and below Narrative: Constitutional: No fevers, no weight gain or loss. Eyes: No discharge. No vision changes. HENT: No congestion, no sore throat, no ear pain. Cardiovascular: No chest pain, no palpitations. Respiratory: No shortness of breath, no wheezes, no cough. Gastrointestinal: No abdominal pain, no vomiting, no diarrhea. Genitourinary: On dialysis 3 days a week. 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 Skin: No rashes, no pruritis. Neurological: No dizziness, weakness, sensory change, speech change. Endo/Heme/Allergies: No bruising or bleeding. No polydipsia. Pysch: no suicidality, no anxiety, no insomnia. All other systems reviewed and are negative. [facility] Social History Smoking Status: Never smoker Do you use any of these nicotine containing products: None Second hand tobacco smoke exposure: No How often do you have a drink containing alcohol: never How often do you have six or more drinks on one occasion: Never AUDIT-C Alcohol total score: 0 Non-prescribed substance use: denies use Exam Narrative: Exam Narrative: Constitutional: Well-developed, well-nourished, no acute distress. HEENT: Normocephalic, atraumatic. Neck: Normal range of motion. Nontender. Supple. Heart: Intact distal pulses. Lungs: No chest discomfort. No wheezes, rhonchi, or rales. Abdomen: Nontender. Back: Normal range of motion. Extremities: No sign of injury. Diffuse pain in the left upper leg radiating from his hip down toward his knee. He has difficulty raising his left leg from the bed. No pain when log-rolling his left leg. Skin: Intact. No rash. Warm. No erythema or pallor. Neurologic: No altered sensation. No weakness. Alert and oriented. Psychiatric: No suicidality. No anxiety or depression. No insomnia. Nursing notes and vitals signs are reviewed. Const: Vital Signs, click to edit/add: Vital Signs - 24 hr 04/26/24 18:22 04/26/24 19:54 04/26/24 20:20 Temperature 98.4 F 98.1 F Pulse Rate [Right Pulse Oximeter] 56 L 86 90 Respiratory Rate 18 16 18 Blood Pressure [Ri ght Upper Arm] 130/68 133/76 148/80 H Pulse Oximetry 97 95 93 Oxygen Delivery Me thod Room Air Room Air Room Air Course Vital Signs Vital signs: Initial Vital Signs Temperature 98.4 F 04/26/24 18:22 Temperature Source Temporal Artery Scan 04/26/24 18:22 Pulse Rate 56 L 04/26/24 18:22 Pulse Rhythm Regular 04/26/24 18:22 Respiratory Rate 18 04/26/24 18:22 Blood Pressure 130/68 04/26/24 18:22 Blood Pressure Mean 88 04/26/24 18:22 Blood Pressure Position Sitting 04/26/24 18:22 Pulse Oximetry 97 04/26/24 18:22 Oxygen Delivery Method Room Air 04/26/24 18:22 Vital Signs Temperature 98.4 F 04/26/24 18:22 Pulse Rate 56 L 04/26/24 18:22 Respiratory Rate 18 04/26/24 18:22 Blood Pressure 130/68 04/26/24 18:22 Pulse Oximetry 97 04/26/24 18:22 Oxygen Delivery Method Room Air 04/26/24 18:22 Temperature 98.1 F 04/26/24 20:20 Pulse Rate 90 04/26/24 20:20 Respiratory Rate 18 04/26/24 20:20 Blood Pressure 148/80 H 04/26/24 20:20 Pulse Oximetry 93 04/26/24 20:20 Oxygen Delivery Method Room Air 04/26/24 20:20 Medications Administered Medications: Discontinued Medications Generic Name Dose Route Start Last Admin Trade Name Freq PRN Reason Stop Dose Admin Hydromorphone HCl 0.5 mg 04/26/24 21:00 04/26/24 21:04 Hydromorphone 0.5 Mg/0.5 Ml Inj IVP 04/26/24 21:01 0.5 mg ONCE ONE Administration Sodium Chloride 500 mls @ 500 mls/hr 04/26/24 20:06 04/26/24 21:21 0.9 % Sodium Chloride 500 Ml IV 04/26/24 21:05 Infused .Q1H ONE Infusion Ondansetron HCl 4 mg 04/26/24 20:06 04/26/24 20:14 Ondansetron 2 Mg/Ml Inj IVP 04/26/24 20:07 4 mg ONCE ONE Administration Medical Decision Making MDM Narrative Medical decision making narrative: This 78-year-old male comes in with left hip and left upper leg pain as described above. X-ray of the hip is obtained and shows no sign of fracture and there is some mild degenerative changes. Ultrasound of the left lower extremity shows no sign of deep venous thrombosis. Labs are also obtained as the patient did have an IV placed dizzy began to have some nausea with vomiting. Lab results also for 1 who is on dialysis are reassuring. His troponin was checked and it is consistent with 1 that was done previously. He does not report any chest pain. The patient did receive Zofran and Dilaudid intravenously and he is feeling better. He is okay to be discharged home and will be able to resume dialysis. I did provide in see med prescription for [place] and a prescription for the same med is preferred pharmacy. Lab Data Labs: Lab Results 04/26/24 Range/Units 20:10 WBC 8.84 (4.50-11.00) K/uL RBC 4.03 L (4.30-5.90) m/uL Hgb 13.3 L (13.5-17.5) gm/dL Hct 41.0 (37.0-53.0) % MCV 102 H (80-100) fL MCH 33 (26-34) pg MCHC 32 (32-36) gm/dL RDW Coeff of Sridevi 14.9 (11.5-15.5) % Plt Count 167 (140-440) K/uL Neut % (Auto) 75.3 H (42.0-72.0) % Lymph % (Auto) 11.1 L (20-44) % [place] % (Auto) 13.0 H (0.0-11.0) % Eos % (Auto) 0.3 (0.0-7.0) % Baso % (Auto) 0.2 (0.0-3.0) % Neut # (Auto) 6.70 (1.7-7.0) K/uL Lymph # (Auto) 1.00 (0.90-2.90) K/uL [place] # (Auto) 1.10 H (0.00-0.90) K/UL Eos # (Auto) 0.03 (0.00-0.50) K/uL Baso # (Auto) 0.02 (0.00-0.30) K/uL Abs Immat Gran (auto) 0.01 (0.00-0.30) K/uL Imm/Tot Granulo (auto) 0.1 % Sodium 136 (135-149) mmol/L Potassium 4.5 (3.6-5.1) mmol/L Chloride 94 L (96-114) mmol/L Carbon Dioxide 28 (20-32) mmol/L Anion Gap 14 (7-15) mEq/L BUN 45 H (7-30) mg/dL Creatinine 4.6 H (0.5-1.5) mg/dL Estimated Creat Clear 13.45 Estimated GFR 12 ml/min Glucose 188 H (60-115) mg/dL Calcium 10.2 (8.4-10.6) mg/dL POC Troponin I 0.10 H (0.01-0.04) ng/ml Imaging Data XR L Hip: Radiologist's impression: 1. No acute findings. 2. Mild degenerative changes of the hips. Discharge Plan Discharge Clinical Impression: Strain of hip flexor Patient Disposition: Home, Self-Care Condition: Stable Additional Instructions: Take medication as needed and indicated. Follow-up with primary physician as scheduled at the beginning of next week. Prescriptions: New hydrocodone-acetaminophen 5-325 mg tablet 1 tab PO Q4-6H PRN (Reason: pain) Qty: 20 0RF No Action ipratropium-albuterol 0.5 mg-3 mg(2.5 mg base)/3 mL solution for nebulization INHALATION Patient Comments: USE 3 ML VIA NEBULIZER EVERY 6 HOURS NEEDED FOR SHORTNESS OF BREATH allopurinol 100 mg tablet 100 mg PO DAILY pantoprazole 40 mg tablet,delayed release (DR/EC) 40 mg PO DAILY metoprolol succinate 25 mg tablet extended release 24 hr 12.5 mg PO DAILY fluticasone propion-salmeterol [Advair HFA] 115-21 mcg/actuation HFA aerosol inhaler 2 inh INHALATION Q12H sevelamer carbonate 800 mg tablet 800 mg PO TID Patient Comments: TAKE 1 TABLET BY MOUTH THREE TIMES A DAY WITH MEALS atorvastatin 40 mg tablet 40 mg PO DAILY clopidogrel 75 mg tablet 75 mg PO DAILY midodrine 10 mg tablet 10 mg PO PRN Follow Up/Referrals: Liban Leos MD [Primary Care Provider] - Stand Alone Forms: [facility] Inst[facility]
--- OUTSIDE RECORDS SUMMARY | 2024-04-26 19:48 | XMS_ITS | Clinical Summary ---
Author Organization [facility] Address [place], [place] [address] Care Team Providers Care School Leader Name Role Phone Liban Leos MD Primary Care Provider Tnaya Paz PharmD Unavailable + [phone] Allergies Active Allergy Reactions Criticality Noted Date [...] % nasal solutionIndication s:Post-nasal drip Inhale 1 [place] into affected nostril(s) every hour if needed [...] Coronary atherosclerosis of unspecified type of vessel, [place] or graft 04/04/2007 Overview (04/04/2007): Angiogram/PCI 04/04/07: [...] unspecified 08/13/2008 07/17/2020 Overview (10/06/2008): Admitted to [facility] 08/12/08 with Hgb 5.6, ferritin 5. Negative [...] 07/26/2010 Overview (04/04/2007): -Mar 2007 admission to [facility] CKD (chronic kidney disease) stage 5, GFR less than 15 ml/min 02/15/2022 End stage renal disease 06/20 Mitral stenosis 07/17/2020 Overview (07/17/2020): Moderate to severe by echo 02/2019 Encounters Date Type Department Care Team Description 04/26/2024 Nurse Triage [facility] [address] [place] [address] Liban Leos MD Leg Pain/problem 04/15/2024 Refill [facility] [address] [place] [address] Liban Leos MD Refill Request (Triphrocaps) 04/14/2024 Refill [facility] [address] [place] [address] Liban Leos MD Refill Request 03/28/2024 Patient Outreach [facility] Care Management - Advanced Care Team [address] [place] [address] Cara Herrera Complex Care Management ([facility] ENGAGEMENT OUTREACH) 03/21/2024 Orders Only [facility] Scanner 1 scan: (1-Ord) [facility], 03/21/2024 03/21/2024 Patient Outreach [facility] Care Management - Care Management Navigation/[facility] [address] [place] [address] Deena Figueroa Care Management Intake (Date of Identification) 03/08/2024 Telephone [facility] [address] [place] [address] Al Lara MD Results 03/05/2024 10:30 AM PROJECT RESERVOIR ENGINEER Ancillary Procedure [facility] [address] [place] [address] 03/05/2024 Travel 02/08/2024 11:10 AM PROJECT RESERVOIR ENGINEER Preop Visit [address] [address] Al Lara MD Preoperative Exam (Cataract Surgery DOS: 02/22/2024 & 02/29/2024/[facility] in [place]); Immunization/Injecti on 02/08/2024 Travel from Last 3 [...] on file Legal Sex Male 5:44 AM PROJECT RESERVOIR ENGINEER Gender Identity Not on file Sexual Orientation Not on file 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 file Not on file Not on file Obstetrics History Last Filed Vital Signs Vital Sign Reading Time Taken Comments Blood Pressure 125/43 02/08/2024 11:15 AM PROJECT RESERVOIR ENGINEER Pulse 55 02/08/2024 11:15 AM PROJECT RESERVOIR ENGINEER Temperature 36.5 C (97.7 F) 01/31/2023 7:53 AM PROJECT RESERVOIR ENGINEER Respiratory Rate 18 01/14/2022 1:12 PM CDT Oxygen Saturation 99% 02/08/2024 11: 15 AM PROJECT RESERVOIR ENGINEER Inhaled Oxygen Concentration - - Weight 100.4 kg (221 lb 4.8 oz) 024 11:15 AM PROJECT RESERVOIR ENGINEER Height 171.3 cm (5' 7.44) 06/20/2023 9:20 AM CD T Body Mass Index 34.21 06/20/2023 9:20 AM CDT Plan of Treatment Upcoming Encounters Date Type Department Care Team (Late st Contact Info) Description 04/30/2024 10:50 AM PROJECT RESERVOIR ENGINEER Office Visit [facility] [address] [place] [address] Lisa Zarate DO [address] [place] [address] 06/25/2024 9:15 AM CDT Orders Only [facility] [address] [place] [address] Lab, [place] 06/25/2024 9:40 AM CDT Office Visit [facility] [address] [place] [address] Liban Leos MD [address] [place] [address] Health Maintenance Due Date Last Done Comments [...] history exists Medical Devices Implanted Type Area Mainspring Barrel Assembly Cleaner Device Identifier Shelf Expiration Date Model / Serial / Lot Anw Hh [id number] Implanted:Qty: 1 on 09/03/2008 at [facility] Explanted:at [facility] (Quantity not on file) Cv Implants N/A: Aortic Valve [employer] Jaclyn 07/13/2010 [id number] # / [id number] / Procedures Procedure Name Priority Date/Time Associated Diagnosis Comments SCAN-EYE EXAM 03/21/2024 12:00 AM PROJECT RESERVOIR ENGINEER US CAROTID DUPLEX BILATERAL Routine 03/05/2024 11:00 AM PROJECT RESERVOIR ENGINEER Preoperative examination Bruit of left carotid artery ANTI HCV Add On 11/30/2021 12:45 PM CDT Need for hepatitis C screening test from Last 3 Months or Most Recently Relevant to Health Maintenance Results * SCAN-EYE EXAM (03/21/2024 12:00 AM PROJECT RESERVOIR ENGINEER) us Scanner OTHER Final Result * US CAROTID DUPLEX BILATERAL (03/05/2024 11:00 AM PROJECT RESERVOIR ENGINEER) Anatomical Region Laterality Modality CAROTID, NECK Ultrasound Impressions 03/08/2024 4:53 PM PROJECT RESERVOIR ENGINEER Essentially stable less than 50% narrowing of the origin of the cervical ICAs bilaterally. Ar Benjamin D.O. Neuroradiologist [email or web address] EVELINA/cristo / Narrative 03/08/2024 4:53 PM PROJECT RESERVOIR ENGINEER Table formatting from the original result was [...] joe Non-React joe 12/03/2021 4:28 PM CDT [facility] Comment:Antibodies to HCV no t detected; does not exclude the possibility of exposure to HCV. Blood BLOOD SPECIMEN / Unknown Venipuncture / Unknown 11/30/2021 12:45 PM CDT 11/30/2021 1:44 PM CDT us Liban Leos MD SEND OUTS Final Result [facility] [employer] [facility] [address] [place] [address], [place] from Last 3 Months or Most [...] 1:41 AM 10/20/2008 1:45 PM Care Teams School Leader Relationship Specialty Start Date End Date Liban Leos MD [address] [place] [address] PCP - General Family Practice 07/17/20 Tanya Paz, PharmD [address] [facility] [address] [place] [address] Pharmacist Medication Management Pharmacology 05/31/22
--- OUTSIDE RECORDS SUMMARY | 2024-04-26 19:48 | XMS_ITS ---
Author Organization [facility] Address [address] [place] [address] Care Team Providers Care Employee Benefits Coordinator Name Role Phone Elsewhere, Pcp Primary Care [...] valve stenosis. 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 LAB BLOOD ADD- ON Final Result [facility] [address] [place] [address] [place] [address], [place] [facility] [address] [place] [address] [place] [address] from Last 3 Months or Most Recently Relevant to Health Maintenance
--- OUTSIDE RECORDS SUMMARY | 2024-04-26 19:48 | XMS_ITS | CONTINUITY OF CARE DOCUMENT ---
Author Name User, QIE Address [address] [place] [address] Organization [facility] Address [address] [facility] [address] [place] [address] Phone [phone] Care Team Providers Care Heel Burnisher Name Role Phone User, QIE Unavailable Unavailable PROBLEMS Condition Status Date Provider Notes Organizati on HTN, UNSPECIFIED active Chely elizabeth , [address] [facility] [place] CKD STAGE ESRD ON DIALYSIS GFR <15 active Chely Sarahy , [address] [facility] [place] VITAL SIGNS Date Observation Value Provider Organization blood pressure, diastolic 59 mm[Hg] Kenzie Salinas RN RN, [address] [place] [address] [facility] [place] blood pressure, systolic 135 mm[Hg] Kenzie Salinas RN RN, [address] [place] [address] [address] [facility] [place] blood pressure, site #1 Upper arm Kenzie Salinas RN RN, [address] [place] [address] [address] [facility] [place] blood pressure, diastolic, right arm 59 mm[Hg] Kenzie Salinas RN RN, [address] [place] [address] [address] [facility] [place] blood pressure, systolic, right arm 135 mm[Hg] Kenzie Salinas RN RN, [address] [place] [address] [address] [facility] [place] pulse rate 56 /min Kenzie Salinas RN RN, [address] [place] [address] [address] [facility] [place] respiratory rate E&M 16 /min Kenzie reyes RN RN, [address] [place] [address] [address] [facility] temperature E&M 98.3 [degF] Kenzie gibbs RN RN, [address] [place] [address] [address] [facility] Body Mass Index (Ratio) 30.83 kg/m2 Kenzie Salinas RN RN, [address] [place] [address] [address] [facility] weight E&M 208 [lb_av] Kenzie Salinas RN RN, [address] [place] [address] [address] [facility] height E&M 69 [in_i] Kenzie Salinas RN RN, [address] [place] [address] [address] [facility] blood pressure, diastolic 61 mm[Hg] Chelymaureen Nguyenemus , [address] [facility] blood pressure, systolic 109 mm[Hg] Chely Bredemus , [address] [facility] [place] blood pressure, site #1 Upper arm Chely Bredemus , [address] [facility] [place] blood pressure, diastolic, right arm 61 mm[Hg] Chely Bredemus , [address] [facility] blood pressure, systolic, right arm 109 mm[Hg] Chely Bredemus , [address] [facility] respiratory rate E&M 22 /min Chely Bredemus , [address] [facility] pulse rate 84 /min Chely Melidau s , [address] [facility] temperature E&M 98.2 [degF] Chley Bred emus , [address] [facility] [place] Body Mass Index (Ratio) 36.61 kg/m2 Chely Weathers , [address] [facility] [place] weight E&M 247 [lb_av] Chely green , [address] [facility] [place] height E&M 69 [in_i] Chely green , [address] [facility] [place] ALLERGIES Allergy Name Onset Date Reaction Criticality Status Provider Or ganization LISINOPRIL Cough Cough Low Criticality active Chely Weathers , [address] [facility] [place] RESULTS Date Observation Value Provider Organization Refer ence Range Interpretation Location blood glucose, finger stick 195 Kenzie Salinas RN RN, [address] [place] [address] [address] [facility] [place] blood glucose, finger stick 126 Chely Weathers , [facility] [address] [facility] [place] HISTORY OF MEDICATION USE Medication Instructions Status Dates Provider Indications Com ments Organization midodrine 2.5 mg tablet active Kenzie Salinas RN RN, [address] [place] [address] [address] [facility] [place] Plavix 75 mg tablet active Kenzie Salinas RN RN, [address] [place] [address] [address] [facility] [place] sevelamer carbonate 800 mg tablet active Chely Weathers , [facility] [address] [facility] [place] Advair HFA 115-21 mcg/actuation HFA aerosol inhaler active Chely Weathers , [address] [place] [address] [address] [facility] [place] fluticasone propionate 50 mcg/actuation spray,suspension active Chely Weathers , [address] [place] [address] [address] [facility] metoprolol succinate 25 mg tablet extended release 24 hr active Chely Weathers , [address] [place] [address] ipratropium-albu terol 0.5 mg-3 mg(2.5 mg base)/3 mL solution for nebulization USE 3 ML VIA NEBULIZER EVERY 6 HOURS NEEDED FOR SHORTNESS OF BREATH active Chely Montezus , [address] [facility] [place] allopurinol 100 mg tablet active Chely Nguyenemus , [address] [facility] [place] atorvastatin 20 mg tablet active Chelymaureen Nguyenemus , [address] [facility] [place] Aspirin Childrens 81 mg tablet,chewable active Chely Montezus , [address] [facility] [place] Triphrocaps active Chely Montezus , [address] [facility] [place] irbesartan 150 mg tablet active Chely Nguyenemus , [address] [facility] cholecalciferol (vitamin D3) 50 mcg (2,000 unit) tablet active Chely Montezus , [address] [facility] [place] SOCIAL HISTORY Date Observation Value Provider Organization 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 Eligio Sosa MD, MD, [address] [place] [address] [facility] [place] social history reviewed E&M reviewed - no changes required Kenzie Salinas RN RN, [address] [place] [address] [address] [facility] [place] 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 Arturo Colon MD, MD, [address] [place] [address] [address] [facility] [place] social history 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Tobac co - Former N ever Smoker Chely Montezus , [address] [facility] [place] smoking/tobacco cessation, patient education and counseling no Chely Montezus , [address] [facility] [place] smoking status Former smoker Chely esqueda , [address] [facility] [place] FAMILY HISTORY Family Member Condition Paternal Grandmother Family History of D iabetes Maternal Grandmother Family History of D iabetes Mother Family History of He art Disease INSURANCE PROVIDERS Payer name Policy type / Coverage type [place] red constitution party ID BLUE CROSS SENIOR-MEDICARE [id number] MEDICARE [id number] HISTORY OF PROCEDURES Procedure Date Procedure Name Provider Procedure Notes Status Organization [place] [facility] Eligio Sosa MD, MD, [address] [place] [address] Road [address] [facility] [address] completed [facility] SNOMED-CT: [id number] Current Medications Documented Eligio Sosa MD, MD, [address] [place] [address] Road [address] [facility] [address] completed [facility] INJ HEPARIN SODIUM PER 1000 UNITS Eligio Sosa MD, MD, [address] [place] [address] Road [address] [facility] [address] completed [facility] INFUS NORMAL SALINE SOLUTION 250 CC Eligio Sosa MD, MD, [address] [place] [address] Road [address] [facility] [address] completed [facility] INJECTION MIDAZOLAM HCL PER 1 MG Eligio Sosa MD, MD, [address] [place] [address] Road [address] [facility] [address] completed [facility] INJECTION FENTANYL CITRATE 100MCG Eligio Sosa MD, MD, [address] [place] [address] Road [address] [facility] [address] completed [facility] Wire Eligio Sosa MD, MD, [address] [place] [address] [address] [facility] [address] completed [facility] Balloon Eligio Sosa MD, MD, [address] [place] [address] Road [address] [facility] [address] completed [facility] Omnipaque 300 10ml (Medicare Q9949) Eligio Sosa MD, MD, [address] [place] [address] Road [address] [facility] [address] 25ml completed [facility] Fistulagram, Dialysis Eligio Sosa MD, MD, [address] [place] [address] [address] [facility] [address] completed [facility] Angioplasty within including RS&I Eligio Sosa MD, MD, [address] [place] [address] [address] [facility] [address] completed [facility] Antibiotic-No Order Eligio Sosa MD, MD, [address] [facility] [address] completed [facility] Quailty Measures all negative Eligio Sosa MD, MD, [address] [facility] [address] [facility] [address] completed [facility] SNOMED-CT:HISTORICA L PNEUMOCOCCAL VACCINATION Eligio Sosa MD, MD, [address] [place] [address] [address] [facility] [address] completed [facility] SNOMED-CT:PATIENT ENCOUNTER Eligio Sosa MD, MD, [address] [place] [address] [address] [facility] [address] completed [facility] INJECTION FENTANYL CITRATE 100MCG Arturo Colon MD, MD, [address] [place] [address] [address] [facility] [address] completed [facility] INFUS NORMAL SALINE SOLUTION 250 CC Arturo Colon MD, MD, [address] [place] [address] [address] [facility] [address] completed [facility] Glucose/hemocue Arturo Colon MD, MD, [address] [place] [address] [address] [facility] [address] completed [facility] INJECTION MIDAZOLAM HCL PER 1 MG Arturo Colon MD, MD, [address] [place] [address] [address] [facility] [address] completed [facility] Wire Arturo Colon MD, MD, [address] [place] [address] [address] [facility] [address] completed [facility] Balloon Arturo Colon MD, MD, [address] [place] [address] [address] [facility] [address] completed [facility] Omnipaque 300 10ml (Medicare Q9949) Arturo Colon MD, MD, [address] [place] [address] [address] [facility] [address] completed [facility] Angioplasty within including RS&I Arturo Colon MD, MD, [address] [place] [address] [address] [facility] [address] completed [facility] Fistulagram, Dialysis Arturo Colon MD, MD, [address] [place] [address] [address] [facility] [address] completed [facility] Antibiotic-No Order Arturo gomez MD, MD, [address] [place] [address] [address] [facility] [address] completed [facility] Quailty Measures all negative Arturo Colon MD, MD, [address] [place] [address] Road [address] [facility] [address] completed [facility] SNOMED-CT:HISTORICA L PNEUMOCOCCAL VACCINATION Arturo Colon MD, MD, [address] [place] [address] [address] [facility] [address] completed [facility] SNOMED-CT:PATIENT ENCOUNTER Arturo Colon MD, MD, [address] [place] [address] [address] [facility] [address] completed [facility] [place]
--- OUTSIDE RECORDS SUMMARY | 2024-04-26 19:48 | XMS_ITS | Continuity of Care Document ---
Author Organization [facility] Address [address] [address] [place] [address] Phone Care Team Providers Care Putty Patcher Name Role Phone Unavailable Unavailable Unavailable Procedures [...] Diagnoses Date Provider Providers Copied on Encounter [facility], [address] [address], [place], [id number], [place] tel:[phone] [facility] No Information No Information Init Hosp-da E&m Mod Severity [facility], [address] [address], [place], [id number], [place] tel:[phone] [facility] No Information 2 No Information Referring Provider: Layne Rossi PAC R, [address], [place], [address]. tel:[phone] Subsqt Hosp-da E&m Minr Compl [facility], [address] [address], [place], [id number], [place] tel:[phone] [facility] No Information 9 Desean Gonzalez. [address] [facility], [place], [place], [id number], [place]. tel:[phone] Referring Provider: Dallin Alvares, [address], [place], [address]. tel:[phone] Init Inpt Cons New/est Mod-hi [facility], [address] [address], [place], [id number], [place] tel:[phone] [facility] No Information No Information Referring Provider: Dallin Alvares, [address], [place], [address]. tel:[phone] [facility], [address] [address], [place], [id number], [place] tel:[phone] [facility] No Information 9 Nilton Cerda. [address] [facility], [facility] [address], [place], [place], [id number], [place]. tel:[phone] Referring Provider: Bryan Mcelroy, [address] [facility] [address], [place], [address] . tel:[phone] Subsqt Hosp-da E&m Minr Compl [facility], [address] [address], [place], [id number], [place] tel:[phone] [facility] No Information 9 Quentin Robertson. [address] [facility], [facility] [address], [place], [place], [address], [place]. tel:[phone] Referring Provider: Dallin Alvares, [address], [place], [address]. tel:[phone] Init Inpt Cons New/est Mod-hi [facility], [address] [address], [place], [place], [id number], [place] tel:[phone] [facility] No Information Cash Adasm. [address] [facility], [facility] [address], [place], [place], [id number], [place]. tel:[phone] Referring Provider: Dallin Gomez MD R, [address] [facility] [address], [place], [address]. tel:[phone] Family History Family Member Type Diagnosis Age At Onset No Information Payers Payer name Insurance type Covered republican ID Authorangela chente(s) Blue Cross Medicare Advantage BL [id number] Social History Type Description Quantity Date [...]
--- OUTSIDE RECORDS SUMMARY | 2024-04-26 19:48 | XMS_ITS | Clinical Summary ---
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 Gender Identity Not on file Sexual Orientation [...] and gender (Brigette et al., NEJM, DOI: 10.1056/[id number]) Blood STRUCTURE OF RIGHT UPPER LIMB / Unknown Venipuncture / Unknown 01/18/2022 5:13 AM CDT 01/18/2022 7:54 AM CDT us Ashtyn Vogt MD LAB - BLOOD ORDERABLES Final R esult [facility] [address] [facility], [address] [place] [address], [facility] [phone] * (ABNORMAL) CBC with platelets (01/18/2022 5:13 [...] BLOOD ORDERABLES Final R esult [facility] [address] [facility], [address] [place] [address], [facility] [phone] * (ABNORMAL) Comprehensive metabolic panel (12/23/2021 7:51 [...] and gender (Brigette et al., NEJM, DOI: [id number]/[id number]) Blood STRUCTURE OF RIGHT UPPER LIMB / Unknown Venipuncture / Unknown 12/23/2021 7:51 PM CDT 12/23/2021 7:56 PM CDT us Nakita Pruitt MD LAB - BLOOD ORDERABLES Final R esult [facility] [address] [facility] Lab (1st floor, no room number) [place] [address], [facility] [phone] from Last 3 Months or Most Recently Relevant to Health Maintenance Insurance [facility] MEDICARE ADVANTAGE [facility] MEDICARE ADVANTAGE Advance Directives For more information, please contact: [phone] * Full Code (Latest Code Status on [...] nt/ legal decision maker Care Teams Director [place] Sales Relationship Specialty Start Date End Date Liban Leos [address] [place] [address] PCP - General Family Medicine 10/08/21 Ernie Pompa MD [address] [place] [address] Nephrology 10/08/21
--- OUTSIDE RECORDS SUMMARY | 2024-04-26 19:49 | XMS_ITS | Clinical Summary ---
Author Organization [facility] Address [address] [place] [address] Care Team Providers Care Neurosurgery Spine Physician Name Role Phone Elsewhere, Pcp Primary Care Provider Unavailabl e Source Comments Patient records contain information from all sites at [facility]. For routine questions regarding patient records, call [phone] during business hours, M-F 8:00 AM - 5:00 PM Central Time. Record requests for emergency care only can be directed to [phone] at any time.[facility] Allergies Active Allergy Reactions Criticality Noted Date [...] valve stenosis. 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 LAB BLOOD ADD- ON Final Result [facility] [address] [place] [address], [facility] ECLR [facility] [place] [address] [place] [address] from Last 3 Months or Most Recently Relevant to Health Maintenance Insurance [facility] Advance Directives For more information, please contact: [phone] * Full Code (Latest Code Status on File) Date Activated Date Inactivated Comments 07/24/2022 10:03 PM 07/27/2022 10:19 PM Question Answer Comments Full Code: Not Discussed Due to: Patient not available Care Teams Neurosurgery Spine Physician Relationship Specialty Start Date End Date Elsewhere, Pcp PCP - General Internal Medicine 07/25/22
[2024-04-26 19:54] VITALS: BP 133/76; PULSE 86; RESP 16; O2SAT 95
--- NOTE | 2024-04-26 20:06 | CRLHL7_ITS ---
For Patients: As a result of the Century Cures Act, medical imaging exams and procedure reports are released immediately into your electronic medical record. You may view this report before your referring provider. If you have questions, please contact your health care provider. INDICATION: Left leg pain. COMPARISON: Left lower extremity venous ultrasound 02/28/2023. TECHNIQUE: A compression venous ultrasound exam was performed of the left lower extremity using talbot-scale imaging, color Doppler, and spectral Doppler analysis. FINDINGS: Sonographic imaging of the left lower extremity demonstrates normal compressibility and color Doppler venous blood flow within the common femoral, femoral, deep femoral, and proximal greater saphenous veins. At a lower level the popliteal, peroneal, and posterior tibial veins also show normal compressibility and color Doppler venous blood flow. Limited imaging of the contralateral groin demonstrates a normal spectral waveform and color Doppler venous blood flow within the right common femoral vein. IMPRESSION: Negative for acute DVT in the left lower extremity. Dictated by Evelyn Rios MD @ 04/26/2024 9:53:06 PM (Electronically Signed)
[2024-04-26] MEDS: 0.9 % SODIUM CHLORIDE 500 ML 500 ML IV (20:14)
[2024-04-26] MEDS: ONDANSETRON 2 MG/ML inj 4 MG IVP (20:14)
[2024-04-26 20:20] VITALS: BP 148/80; PULSE 90; RESP 18; TEMP 36.7; O2SAT 93
[2024-04-26 20:20] LABS: Basophils Absolute Auto 0.02 K/uL (0.00-0.30); Basophils Percent Auto 0.2 % (0.0-3.0); Eosinophils Absolute Auto 0.03 K/uL (0.00-0.50); Eosinophils Percent Auto 0.3 % (0.0-7.0); Hemoglobin* 13.3 gm/dL (13.5-17.5); Immature Granulocytes Abs Auto 0.01 K/uL (0.00-0.30); Immature Granulocytes Pct Auto 0.1 %; Lymphocytes Percent Auto 11.1 % (20-44); Mean Corpuscular HGB Conc 32 gm/dL (32-36); Mean Corpuscular Hemoglobin 33 pg (26-34); Mean Corpuscular Volume 102 fL (80-100); Neutrophils Percent Auto 75.3 % (42.0-72.0); Platelet Count* 167 K/uL (140-440); RDW Coefficient of Variation % 14.9 % (11.5-15.5); Red Blood Count 4.03 m/uL (4.30-5.90); White Blood Count* 8.84 K/uL (4.50-11.00)
[2024-04-26 20:32] LABS: Chloride* 94 mmol/L (96-114); Potassium* 4.5 mmol/L (3.6-5.1); Sodium* 136 mmol/L (135-149)
[2024-04-26 20:35] LABS: Anion Gap 14 mEq/L (7-15); Carbon Dioxide* 28 mmol/L (20-32); Creatinine* 4.6 mg/dL (0.5-1.5); Est. Creatinine Clearance* 13.45; Estimated Glomerular Filt Rate 12 ml/min
[2024-04-26 20:36] LABS: Blood Urea Nitrogen* 45 mg/dL (7-30); Calcium* 10.2 mg/dL (8.4-10.6); Glucose* 188 mg/dL (60-115)
[2024-04-26 20:37] LABS: Slide Review Reflex No
[2024-04-26 21:00] VITALS: O2SAT 94
[2024-04-26] MEDS: HYDROmorphone 0.5 mg/0.5 ml inj IVP (21:04)
[2024-04-26 21:30] VITALS: BP 107/76; PULSE 84; RESP 18; O2SAT 95
== END 2024-04-26 22:00 | disposition home or self-care (01) ==
PROVIDERS: Emergency Provider Emergency Medicine Emergency Medical Services; PCP Family Medicine
DX: S76.012A Strain of muscle, fascia and tendon of left hip, initial encounter (principal); M79.605 Pain in left leg
CPT/HCPCS: 36415; 73502; 80048; 84484; 85025; 93971; 94761; 96374; 96375; 99284; J1171; J2405; J7030

== ENCOUNTER 2024-08-28 13:34 | Outpatient (CLI) | payer MEDICARE, SELFPAY | END 2024-08-28 13:35 | disposition home or self-care (01) | LOC: AMB 08-30 09:16 | PROVIDERS: PCP Family Medicine; Visit Provider Family Medicine | DX: I95.9 Hypotension, unspecified (principal); I49.9 Cardiac arrhythmia, unspecified | CPT/HCPCS: A0425; A0427 ==

== ENCOUNTER 2024-10-06 23:57 | Outpatient (CLI) | payer MEDICARE, SELFPAY | END 2024-10-06 23:58 | disposition home or self-care (01) | PROVIDERS: PCP Family Medicine; Visit Provider Student in an Organized Health Care Education/Training Program | DX: R06.09 Other forms of dyspnea (principal); R53.1 Weakness; R11.0 Nausea | CPT/HCPCS: A0425; A0427 ==